=== PATIENT | female | born 1960 | race Caucasian/White ===

== ENCOUNTER 2017-04-25 04:33 | Emergency (ER) | payer MEDICARE, SELFPAY ==
[2017-04-25 04:37] VITALS: BP 160/97; PULSE 74; RESP 14; TEMP 36.6; O2SAT 99; BMI 35.4
--- NOTE | 2017-04-25 04:47 | EKG12_ITS ---
Test Reason : GEN ILL Blood Pressure : / mmHG Vent. Rate : 066 BPM Atrial Rate : 066 BPM P-R Int : 110 ms QRS Dur : 068 ms QT Int : 412 ms P-R-T Axes : 035 054 068 degrees QTc Int : 431 ms Sinus rhythm with short [place] Otherwise normal ECG Confirmed by EVI COOK, BRIONNA ([id number]), development editor BUSTER CASEY ([id number]) on 04/26/2017 1:28:59 PM Referred By: JENNIFER Confirmed By:BRIONNA STEVE MD
--- NOTE | 2017-04-25 04:50 | ED.DCSUM_ITS ---
- ER Visit Summary Date of Service: 04/25/17 Chief Complaint: [] Bilateral feet tingling History of Present Illness: The patient is a 56 F over the last 3 days she has had bilateral feet tingling intermittent in her toes. Comes and goes. Gradual onset. Worsened by nothing. She had a rotator cuff replaced 2 weeks ago and is on Percocet. She has had intermittent ringing in her bilateral ears. She has some nausea earlier today. Came in for all the above symptoms. Denies any chest pain shortness of breath or other symptoms. Physical Examination: Vital signs reviewed General: Well-nourished well-developed Head: Normocephalic atraumatic Eyes: Pupils equal round and reactive to light extraocular movements intact ENT: TMs clear no hemotympanum no trauma Neck: Nontender full range of motion Cardiovascular: Regular rate rhythm no murmurs normal S1-S2 Respiratory: No distress clear to auscultation bilaterally chest nontender Abdomen: Soft nontender nondistended normal bowel sounds no masses Back: Nontender no CVA tenderness Extremities: Upper extremity in a rotator cuff sling. The rest of her extremities are normal including lower extremities. Normal strength sensation and pulses. Skin: Normal color no trauma Neuro alert oriented cranial nerves II through XII intact normal strength sensation reflexes Test Results: [] Emergency Department Course and Treatment: [] Patient's lab work shows a CBC is normal except a hematocrit 36.0. Chemistries normal except sodium 146 potassium 3.0. Patient has chronic low potassium takes this daily. EKG shows sinus at a rate of 66. Patient given his a dose of Zofran. Given oral potassium 20 mEq. Ambulated without problems. At this time I feel the patient can follow-up as an outpatient. Given Zofran for home. Requesting a nerve pill and I stated she will have follow-up with her doctor for this Treatment Plan: [] Disposition: [] Impression: [] Bilateral feet paresthesia Ear ringing tinnitus bilateral Hypokalemia This note was generated with [employer] dictation software. It may contain incorrect words, spelling, and punctuation that were not noted in review of the chart prior to signing ED Disposition - Plan for ED Patient: Chief Complaint: General Illness Referrals: Velvet Pepe MD [Primary Care Provider] -
[2017-04-25] MEDS: Ondansetron ODT 4 MG Tablet PO (04:52)
[2017-04-25 05:05] VITALS: BP 134/84; PULSE 66; RESP 11; O2SAT 97
[2017-04-25 05:10] LABS: Absolute Lymphocyte Count 2.21 X10^3/ul (0.83-4.51); Absolute Neutrophil Count 5.9 X10^3/uL (2.0-7.7); Basophil# 0.03 X10^3/uL; Basophil% 0.3 % (0-1); Eosinophil# 0.15 X10^3/uL; Eosinophils% 1.7 % (0-5); Hemoglobin 12.3 g/dl (12.0-15.0); Lymphocyte # 2.21 X10^3/ul (4.0); Lymphocyte % 24.3 % (19-41); Mean Corp Hgb Conc 34.2 g/gl (32-36); Mean Corpuscular Hgb 31.6 pg (27.0-32.0); Mean Corpuscular Volume 92.5 fL (81-99); Mean Platelet Vol. 10.8 fl (6.2-12.0); Monocyte# 0.84 X10^3/uL; Monocyte% 9.2 % (0-10); Neutrophil # 5.85 X10^3/uL (2.7-7.7); Neutrophil % 64.4 % (47-70); Platelet Count 234 K/mm3 (150-450); Red Blood Count 3.89 M/mm3 (4.2-5.4); White Blood Count 9.1 K/mm3 (4.4-11.0)
[2017-04-25 05:11] LABS: POSITIVE COUNT NO; POSITIVE DIFFERENTIAL NO; POSITIVE MORPHOLOGY NO
[2017-04-25 05:34] LABS: Anion Gap 10 (5-15); BUN 16 mg/dL (7-18); BUN/Creat Ratio 17.2 RATIO (10-20); Calcium,Total 8.4 mg/dL (8.5-10.1); Chloride 110 mmol/L (98-107); Creatinine, Serum 0.93 mg/dL (0.55-1.02); EST Glomerular Filtration Rate 66 mL/min (>60); Est Glom Filt Rate - Afr Amer 80 mL/min (>60); Estimated Creatinine Clearance 50.97 ml/min; Glucose 120 mg/dL (74-106); Sodium Level 146 mmol/L (136-145)
--- NOTE | 2017-04-25 05:41 | ED.DEP ---
ED Disposition - Plan for ED Patient: Disposition: Home or Assisted Living Chief Complaint: General Illness Instructions: Discharge Instructions for Hypokalemia, ED Paraesthesias Prescriptions: Ondansetron [Zofran Odt] 4 mg PO Q8H PRN PRN #10 tab PRN Reason: Nausea Referrals: Velvet Pepe MD [Primary Care Provider] -
[2017-04-25 06:08] VITALS: BP 134/85; PULSE 78; RESP 16; O2SAT 97
== END 2017-04-25 06:13 | disposition home or self-care (01) ==
PROVIDERS: Emergency Provider Emergency Medicine; Family Provider Internal Medicine; PCP Internal Medicine
DX: R20.2 Paresthesia of skin (principal); H93.13 Tinnitus, bilateral; E87.6 Hypokalemia; I25.10 Atherosclerotic heart disease of native coronary artery without angina pectoris; J44.9 Chronic obstructive pulmonary disease, unspecified; I10 Essential (primary) hypertension; M79.7 Fibromyalgia; F31.9 Bipolar disorder, unspecified; E66.9 Obesity, unspecified; Z79.899 Other long term (current) drug therapy
CPT/HCPCS: 80048; 85025; 93005; 99283; A4216

== ENCOUNTER 2017-05-30 08:39 | Emergency (ER) | payer MEDICARE, SELFPAY ==
[2017-05-30 08:40] VITALS: BP 190/108; PULSE 61; RESP 28; TEMP 36.6; O2SAT 97; BMI 34.8
--- NOTE | 2017-05-30 08:45 | EKG12_ITS ---
Test Reason : CP Blood Pressure : / mmHG Vent. Rate : 057 BPM Atrial Rate : 057 BPM P-R Int : 114 ms QRS Dur : 066 ms QT Int : 452 ms P-R-T Axes : 025 038 044 degrees QTc Int : 439 ms Sinus bradycardia Otherwise normal ECG Confirmed by JOSESITO COOK, ISABELLE ([id number]), associate editor BUSTER CASEY ([id number]) on 06/03/2017 1:13:20 PM Referred By: RAFAEL Confirmed By:ISABELLE BELLAMY MD
--- NOTE | 2017-05-30 08:57 | ED.DCSUM_ITS ---
- ER Visit Summary Date of Service: 05/30/17 Chief Complaint: [] Hot flashes after taking estrogen supplementation tablet this morning History of Present Illness: The patient is a 56 F [] has history of menopause she has been having hot flashes that are quite debilitating, history of hypertension and anxiety, she indicates she was seen by her physicians put on an estrogen tablet to help with all the above, she took that tablet first time today and immediately afterward she felt as if the hot flashes were worse she feels if she is on fire her entire body she feels is suffering from hot flash. She spoke with someone at the [facility] hotline nurse and she was told to come to the emergency department She has no history of CA PE DVT hypertension is generally well-controlled her anxiety medications 3 months ago were stopped and included Valium and tramadol currently has nothing for anxiety she denies chest pain abdominal pain vaginal bleeding #6 paresthesias Physical Examination: [] Pressure is elevated to 190/100 she is awake and alert she is rubbing her skin because of the symptoms, her HEENT exam is unremarkable her speech is normal and easy to understand her oral cavity is unremarkable the neck is supple the lungs are clear heart tones are normal abdomen soft nontender upper lower extremities unremarkable the skin is normal neurologically her NIH is 0 she is awake and alert Test Results: [] Emergency Department Course and Treatment: [] Concern as to why this new estrogen tablet caused her to have worsening hot flashes of explained her that given all the above we will obtain screening labs try to provide her systematic relief if these tests are unremarkable I explained that she will need to continue to follow with her gynecology team for further management of all the above Feeling better no longer having these hot flash sensations vital signs are better 140/70 she wants to go home she will continue her chronic medications consider stopping the new estrogen tablet discussing that therapy with her physicians return for change in symptoms Treatment Plan: [] Disposition: [] Home stable Impression: [] Hot flash sensation after taking estrogen tablet resolved history of hypertension and anxiety This note was generated with [employer] dictation software. It may contain incorrect words, spelling, and punctuation that were not noted in review of the chart prior to signing ED Disposition - Plan for ED Patient: Chief Complaint: General Illness Instructions: ED HTN Established Referrals: Velvet Pepe MD [Primary Care Provider] -
[2017-05-30] MEDS: cloNIDine HCl 0.1 MG Tablet 0.2 MG PO (09:25)
[2017-05-30] MEDS: diazePAM 5 MG Tablet PO (09:26)
[2017-05-30 09:43] LABS: Absolute Lymphocyte Count 1.83 X10^3/ul (0.83-4.51); Absolute Neutrophil Count 5.8 X10^3/uL (2.0-7.7); Basophil# 0.03 X10^3/uL; Basophil% 0.3 % (0-1); Eosinophil# 0.18 X10^3/uL; Eosinophils% 2.1 % (0-5); Hematocrit 37.5 % (37-47); Hemoglobin 12.5 g/dl (12.0-15.0); Lymphocyte # 1.83 X10^3/ul (4.0); Lymphocyte % 21.2 % (19-41); Mean Corp Hgb Conc 33.3 g/gl (32-36); Mean Corpuscular Hgb 30.6 pg (27.0-32.0); Mean Corpuscular Volume 91.9 fL (81-99); Mean Platelet Vol. 10.6 fl (6.2-12.0); Monocyte# 0.78 X10^3/uL; Neutrophil # 5.81 X10^3/uL (2.7-7.7); Neutrophil % 67.2 % (47-70); POSITIVE COUNT NO; POSITIVE DIFFERENTIAL NO; POSITIVE MORPHOLOGY NO; Platelet Count 243 K/mm3 (150-450); RBC Distribution Width CV 13.2 % (11.6-14.6); RBC Distribution Width SD 43.9 fl (35.1-43.9); Red Blood Count 4.08 M/mm3 (4.2-5.4); White Blood Count 8.7 K/mm3 (4.4-11.0)
[2017-05-30 09:59] LABS: AST(SGOT) 16 U/L (15-37); Alanine Aminotransfer ALT/SGPT 17 U/L (13-56); Albumin, Serum 3.4 g/dL (3.2-5.0); Alkaline Phosphatase 78 U/L (45-117); Anion Gap 10 (5-15); BUN 14 mg/dL (7-18); Bilirubin, Direct 0.11 mg/dL (0.00-0.30); Calcium,Total 8.1 mg/dL (8.5-10.1); Chloride 114 mmol/L (98-107); Creatinine, Serum 0.82 mg/dL (0.55-1.02); EST Glomerular Filtration Rate 76 mL/min (>60); Est Glom Filt Rate - Afr Amer 92 mL/min (>60); Estimated Creatinine Clearance 57.81 ml/min; Globulin 3.3 g/dL (2.2-4.2); Glucose 109 mg/dL (74-106); Lipase 179 U/L (73-393); Potassium 3.3 mmol/L (3.5-5.1); Protein, Total 6.7 g/dL (6.4-8.2); Sodium Level 148 mmol/L (136-145)
[2017-05-30 10:09] LABS: Mucous, Urine 0 SEEN /hpf (<or=2+); Red Blood Cells-Urine 0 SEEN /hpf (0-5)
[2017-05-30 10:11] LABS: Color, Urine Yellow (Yellow); Glucose, Dipstick Normal (Normal); Ketone-Dipstick Negative (Negative); Leukocyte Esterase-Dipstick 25 /ul (Negative); Nitrite-Dipstick Negative (Negative); Occult Blood-Urine Negative /ul (Negative); Protein-Dipstick 15 mg/dl (Negative); Specific Gravity, Urine 1.025 (1.002-1.030); Urine Bilirubin Dipstick 3 mg/dL (Negative); Urine Clarity Clear (Clear); Urine Urobilinogen Normal (Normal)
[2017-05-30 10:25] LABS: Bacteria 2+ /hpf (None Seen); Squamous Epithelial Cells - UA 0-5 SEEN /hpf (5-10); White Blood Cells 0-5 SEEN /hpf (0-5)
--- NOTE | 2017-05-30 11:17 | ED.DEP ---
ED Disposition - Plan for ED Patient: Chief Complaint: General Illness Instructions: ED HTN Established Referrals: Velvet Pepe MD [Primary Care Provider] -
[2017-05-30 12:01] VITALS: BP 145/88; PULSE 57; RESP 17
[2017-05-30 12:02] VITALS: BP 145/88; PULSE 57; RESP 18
--- NOTE | 2017-05-30 19:25 | ED.RN ---
Patient called back in to ask what medications she was given while in the ER. Patient given medications and spelling at this time. Patient is attempting to get medication from primary doctor.
== END 2017-05-30 12:11 | disposition home or self-care (01) ==
PROVIDERS: Emergency Provider Emergency Medicine; Family Provider Internal Medicine; PCP Internal Medicine
DX: N95.1 Menopausal and female climacteric states (principal); I10 Essential (primary) hypertension; F41.9 Anxiety disorder, unspecified; Z79.3 Long term (current) use of hormonal contraceptives; Z79.899 Other long term (current) drug therapy
CPT/HCPCS: 80048; 80076; 81001; 83690; 84484; 85025; 93005; 96360; 96361; 99284; J7040; A4216

== ENCOUNTER 2017-06-04 00:54 | Emergency (ER) | payer MEDICARE, SELFPAY ==
[2017-06-04 00:55] VITALS: PULSE 117; RESP 28; TEMP 37.1; BMI 37.0
--- NOTE | 2017-06-04 01:00 | NURSING ---
CALLED FOR EKG, BIPAP, AND BREATHING TREATMENTS, PER RN REQUEST. PULLED OLD EKG'S FOR
--- NOTE | 2017-06-04 01:13 | EKG12_ITS ---
Test Reason : Blood Pressure : / mmHG Vent. Rate : 092 BPM Atrial Rate : 092 BPM P-R Int : 126 ms QRS Dur : 068 ms QT Int : 356 ms P-R-T Axes : 064 063 015 degrees QTc Int : 440 ms Normal sinus rhythm Nonspecific ST and T wave abnormality Abnormal ECG Confirmed by JOSESITO COOK, ISABELLE ([id number]), map editor BUSTER CASEY ([id number]) on 06/07/2017 1:05:14 PM Referred By: Confirmed By:ISABELLE BELLAMY MD
--- NOTE | 2017-06-04 01:13 | RAD_ITS ---
STUDY: X-RAY CHEST REASON FOR EXAM: Female, 56 years old. Shortness of breath and cough. TECHNIQUE: Single AP portable view of the chest. COMPARISON: 03/22/2015. FINDINGS: There is mild patchy infiltrate in the right perihilar and left lower lung zones. There prominent markings in the left perihilar region. There is no demonstrated pleural abnormality. The heart is within normal limits in size. Normal mediastinum and madelyn. Normal visualized pulmonary arteries. There is atherosclerotic tortuosity of the aortic arch and descending thoracic aorta. The thoracic spine is not well-seen. There is a surgical pin overlying the right humeral head. There is no demonstrated abnormality of the visualized soft tissue structures of the upper abdomen. RAD/Chest 1 View (Portable) IMPRESSION: Mild patchy infiltrate in right perihilar and right lower lung zones and possibly in the left perihilar region. Electronically Signed: Ryland Ruelas MD at 2:20 EDT Tel , Service support ,
[2017-06-04] MEDS: Ipratropium/Albuterol Sulfate 3 ML AMPUL.NEB INHALATION (01:26)
[2017-06-04 01:27] VITALS: PULSE 95; RESP 20
[2017-06-04] MEDS: Ondansetron 4 MG/2 ML Vial IV (01:32)
[2017-06-04 01:33] VITALS: O2SAT 93
[2017-06-04] MEDS: Ketorolac 30 MG/ML Syringe IV (01:42)
[2017-06-04] MEDS: Midazolam 2 MG/2 ML Syringe 1 MG IV (01:47)
[2017-06-04 01:57] LABS: Absolute Lymphocyte Count 2.67 X10^3/ul (0.83-4.51); Absolute Neutrophil Count 11.3 X10^3/uL (2.0-7.7); Basophil# 0.03 X10^3/uL; Basophil% 0.2 % (0-1); Eosinophil# 0.24 X10^3/uL; Eosinophils% 1.6 % (0-5); Hematocrit 42.3 % (37-47); Hemoglobin 14.2 g/dl (12.0-15.0); Lymphocyte # 2.67 X10^3/ul (4.0); Lymphocyte % 17.8 % (19-41); Mean Corp Hgb Conc 33.6 g/gl (32-36); Mean Corpuscular Hgb 30.7 pg (27.0-32.0); Mean Corpuscular Volume 91.6 fL (81-99); Monocyte# 0.77 X10^3/uL; Monocyte% 5.1 % (0-10); Neutrophil # 11.25 X10^3/uL (2.7-7.7); Neutrophil % 75.1 % (47-70); Platelet Count 253 K/mm3 (150-450); RBC Distribution Width CV 13.7 % (11.6-14.6); RBC Distribution Width SD 44.9 fl (35.1-43.9); Red Blood Count 4.62 M/mm3 (4.2-5.4)
[2017-06-04 02:01] LABS: POSITIVE COUNT NO; POSITIVE DIFFERENTIAL NO; POSITIVE MORPHOLOGY NO
[2017-06-04 02:17] LABS: BUN 10 mg/dL (7-18); Creatinine, Serum 0.82 mg/dL (0.55-1.02); Glucose 186 mg/dL (74-106)
[2017-06-04 02:18] LABS: Anion Gap 9 (5-15); BUN/Creat Ratio 12.2 RATIO (10-20); Chloride 112 mmol/L (98-107); EST Glomerular Filtration Rate 76 mL/min (>60); Est Glom Filt Rate - Afr Amer 92 mL/min (>60); Estimated Creatinine Clearance 57.81 ml/min; Potassium 3.2 mmol/L (3.5-5.1); Sodium Level 146 mmol/L (136-145)
--- NOTE | 2017-06-04 02:38 | ED.DCSUM_ITS ---
- ER Visit Summary Date of Service: 06/04/17 Chief Complaint: [] Cough and shortness of breath and anxiety History of Present Illness: The patient is a 56 F patient states she has been under a lot of stress and having anxiety. She has also been having a cough today with clear sputum production and shortness of breath. She is a history of COPD coronary artery disease. She has severe mitral regurgitation. She has had pneumonia with sepsis in the past. She has been out of her anxiety medications. She came in the emergency department because of hot flashes recently. Physical Examination: Vital signs reviewed General: Well-nourished well-developed. Patient with reported anxiety uncomfortable. Head: Normocephalic atraumatic Eyes: Pupils equal round and reactive to light extraocular movements intact ENT: TMs clear no hemotympanum no trauma Neck: Nontender full range of motion Cardiovascular: Regular tachycardia with normal rhythm no murmurs normal S1-S2 Respiratory: Mild rales in the bases of the right lower lung. No wheezes. Abdomen: Soft nontender nondistended normal bowel sounds no masses Back: Nontender no CVA tenderness Extremities: Nontender active range of motion ?4 extremities no trauma Skin: Normal color no trauma Neuro alert oriented cranial nerves II through XII intact normal strength Test Results: [] Emergency Department Course and Treatment: [] Patient was given a dose of alprazolam for anxiety which helped significantly. She calm down. Heart rate come down to the 80s. Chest x-ray shows a right lower lobe pneumonia. Chest x- ray shows a white count of 15,000. Chemistries normal except sodium 146. EKG shows sinus at 92. Troponin 0 0.05. The patient is on home oxygen. Pulse ox 93% on nasal cannula. Patient does not feel she is well enough to go home and is requesting admission. This will be discussed with the hospitalist. The patient does not really meet any admission criteria. She is not hypoxic on nasal cannula and will be discharged. She will be given a short course of Xanax and levofloxacin with her first dose here. Her anxiety attack is resolved. Treatment Plan: [] Disposition: [] Impression: [] Right lower lobe community acquired pneumonia Anxiety attack This note was generated with [employer] software. It may contain incorrect words, spelling, and punctuation that were not noted in review of the chart prior to signing ED Disposition - Plan for ED Patient: Disposition: Home or Assisted Living Chief Complaint: Shortness of Breath Instructions: Understanding Anxiety Disorders, ED Pneumonia Adult Prescriptions: Ondansetron [Zofran Odt] 4 mg PO Q8H PRN PRN #10 tab PRN Reason: Nausea Levofloxacin [Levaquin] 750 mg PO DAILY #7 tab Alprazolam [Xanax] 1 mg PO TID PRN 3 Days #8 tab PRN Reason: Anxiety Referrals: Velvet Pepe MD [Primary Care Provider] -
--- NOTE | 2017-06-04 02:48 | ED.DEP ---
ED Disposition - Plan for ED Patient: Disposition: Home or Assisted Living Chief Complaint: Shortness of Breath Instructions: ED Pneumonia Adult, Understanding Anxiety Disorders Prescriptions: Ondansetron [Zofran Odt] 4 mg PO Q8H PRN PRN #10 tab PRN Reason: Nausea Levofloxacin [Levaquin] 750 mg PO DAILY #7 tab Alprazolam [Xanax] 1 mg PO TID PRN 3 Days #8 tab PRN Reason: Anxiety Referrals: Velvet Pepe MD [Primary Care Provider] -
[2017-06-04] MEDS: levoFLOXacin 750 MG Tablet PO (03:01)
[2017-06-04 03:09] VITALS: BP 146/113; PULSE 92; RESP 18; O2SAT 93
== END 2017-06-04 03:18 | disposition home or self-care (01) ==
PROVIDERS: Emergency Provider Emergency Medicine; Family Provider Internal Medicine; PCP Internal Medicine
DX: J18.9 Pneumonia, unspecified organism (principal); F41.1 Generalized anxiety disorder; I25.10 Atherosclerotic heart disease of native coronary artery without angina pectoris; J44.9 Chronic obstructive pulmonary disease, unspecified; I10 Essential (primary) hypertension; I34.0 Nonrheumatic mitral (valve) insufficiency; M06.9 Rheumatoid arthritis, unspecified; M79.7 Fibromyalgia; K21.9 Gastro-esophageal reflux disease without esophagitis; F31.9 Bipolar disorder, unspecified; E66.9 Obesity, unspecified; Z99.81 Dependence on supplemental oxygen; Z79.82 Long term (current) use of aspirin; Z79.891 Long term (current) use of opiate analgesic; Z79.52 Long term (current) use of systemic steroids; Z79.899 Other long term (current) drug therapy; I25.2 Old myocardial infarction
CPT/HCPCS: 71045; 80048; 84484; 85025; 93005; 94640; 96374; 96375; 99285; A4216; J2405

== ENCOUNTER 2017-06-08 01:49 | Inpatient (IN) | payer MEDICARE, SELFPAY ==
[2017-06-08] VITALS (20 sets, daily range): BP systolic 103–191; BP diastolic 59–156; PULSE 80–122; RESP 12–36; TEMP 36.3–36.9; O2SAT 92–98; BMI 35.6; BMI 36.5
--- NOTE | 2017-06-08 01:53 | EKG12_ITS ---
Test Reason : SOB Blood Pressure : / mmHG Vent. Rate : 102 BPM Atrial Rate : 102 BPM P-R Int : 130 ms QRS Dur : 070 ms QT Int : 340 ms P-R-T Axes : 061 064 071 degrees QTc Int : 443 ms Sinus tachycardia Otherwise normal ECG Confirmed by JOSESITO COOK, ISABELLE ([id number]), magazine editor BUSTER CASEY ([id number]) on 06/11/2017 8:37:58 AM Referred By: DR ALVAREZ Confirmed By:ISABELLE BELLAMY MD
--- NOTE | 2017-06-08 01:56 | ED.DCSUM_ITS ---
- ER Visit Summary Date of Service: 06/08/17 Chief Complaint: Cough, shortness of breath History of Present Illness: The patient is a 56 F who presents with a cough as well as shortness of breath. It started today and got worse. She was seen here 4 days ago and diagnosed with pneumonia. She is currently on Levaquin. Today she states her symptoms did get worse. Her cough is been productive of sputum. Her shortness of breath gets worse with exertion and better with rest. She has a history of COPD and wears 2 L of home oxygen. Upon EMS arrival tonight her pulse ox was 70%. They put her on high flow nonrebreather and it went up to 100%. Patient denies any fevers. Physical Examination: Vital signs are reviewed. HEENT exam unremarkable. Heart is tachycardic and regular rhythm without murmurs. Lungs have diffuse into tourniquet Tory wheezing. Patient is using accessory muscles. Abdomen is soft nontender. Extremities reveal no edema. Her neurologic exam is at baseline. Test Results: EKG was sinus tachycardia with a rate of 102. Nonspecific ST T- wave changes noted. Chest x-ray does redemonstrate the bilateral lower lobe infiltrate. White blood cell count is 17. Creatinine 1.27, glucose 215. Troponin is indeterminate 0.10. Lactate normal. ABG shows a pH of 7.36, CO2 of 43, oxygen of 84, bicarb 24 Emergency Department Course and Treatment: Due to the patient's work of breathing, she was given aerosol treatments. She was then placed on BiPAP at 60 % FiO2. She is more comfortable with this. The patient was then started on Rocephin and azithromycin. I feel that her pneumonia is likely contributing to an exacerbation of her COPD. Patient will be admitted to the hospital on BiPAP to the PCU stepdown Treatment Plan: [] Disposition: Admit Impression: Acute on chronic respiratory failure, community-acquired pneumonia, COPD exacerbation, sepsis This note was generated with [employer] dictation software. It may contain incorrect words, spelling, and punctuation that were not noted in review of the chart prior to signing ED Disposition - Plan for ED Patient: Chief Complaint: Shortness of Breath Referrals: Velvet Pepe MD [Primary Care Provider] -
[2017-06-08] MEDS: Ipratropium/Albuterol Sulfate 3 ML AMPUL.NEB INHALATION ×5 (02:00→20:07)
[2017-06-08] MEDS: Albuterol 2.5 MG/3 ML VIAL.NEB. INHALATION ×3 (02:00→02:20)
--- NOTE | 2017-06-08 02:05 | RAD_ITS ---
STUDY: X-RAY CHEST REASON FOR EXAM: Female, 56 years old. Cough, shortness of breath TECHNIQUE: Single AP portable view of the chest. COMPARISON: Jun 04 2017 3:04am FINDINGS: Ill-defined airspace opacities are seen right and left lung lower lobes consistent with bilateral pneumonia has been no significant changes since the previous study. There is small right pleural effusion. Normal size heart. Normal mediastinum and madelyn. Normal visualized pulmonary arteries. Normal visualized aortic arch and descending thoracic aorta. Normal visualized thoracic spine. Normal visualized ribs, clavicles, and shoulders. There is no demonstrated abnormality of the visualized soft tissue structures of the upper abdomen. RAD/Chest 1 View (Portable) IMPRESSION: Bilateral pneumonia. Small right pleural effusion. Electronically Signed: Viviana Le MD at 3:11 EDT Tel , Service support ,
[2017-06-08] MEDS: MethylPREDNISolone 125 MG/2 ML Vial IV (02:06)
[2017-06-08] MEDS: Ondansetron 4 MG/2 ML Vial IV (02:07)
[2017-06-08] MEDS: Acetaminophen 500 MG Tablet 1000 MG PO (02:07)
[2017-06-08 02:09] LABS: Absolute Neutrophil Count 7.1 X10^3/uL (2.0-7.7); Basophil# 0.04 X10^3/uL; Basophil% 0.2 % (0-1); Eosinophils% 2.4 % (0-5); Hematocrit 41.3 % (37-47); Hemoglobin 13.3 g/dl (12.0-15.0); Lymphocyte % 45.9 % (19-41); Mean Corp Hgb Conc 32.2 g/gl (32-36); Mean Corpuscular Hgb 30.4 pg (27.0-32.0); Mean Corpuscular Volume 94.3 fL (81-99); Mean Platelet Vol. 11.3 fl (6.2-12.0); Monocyte# 1.58 X10^3/uL; Monocyte% 9.3 % (0-10); Neutrophil # 7.12 X10^3/uL (2.7-7.7); Neutrophil % 41.9 % (47-70); Platelet Count 347 K/mm3 (150-450); RBC Distribution Width CV 13.7 % (11.6-14.6); RBC Distribution Width SD 46.9 fl (35.1-43.9); Red Blood Count 4.38 M/mm3 (4.2-5.4)
[2017-06-08 02:11] LABS: Differential Indicated SCAN CRITERIA MET; POSITIVE COUNT NO; POSITIVE DIFFERENTIAL YES; POSITIVE MORPHOLOGY NO
[2017-06-08 02:22] LABS: Anion Gap 8 (5-15); BUN 18 mg/dL (7-18); BUN/Creat Ratio 14.2 RATIO (10-20); Calcium,Total 8.2 mg/dL (8.5-10.1); Chloride 109 mmol/L (98-107); Creatinine, Serum 1.27 mg/dL (0.55-1.02); EST Glomerular Filtration Rate 46 mL/min (>60); Est Glom Filt Rate - Afr Amer 56 mL/min (>60); Estimated Creatinine Clearance 40.92 ml/min; Glucose 215 mg/dL (74-106); Potassium 4.5 mmol/L (3.5-5.1); Sodium Level 144 mmol/L (136-145)
[2017-06-08 02:24] LABS: Differential Comment SCANNED
[2017-06-08 02:41] LABS: Allen Test POS; Base Excess -1 mmol/L (-2 to +2); Bicarbonate 24.4 mmol/L (22-26); Blood Gas Specimen Type ART; EPAP 8; FI02 60; IPAP 12; PO2 84 mmHG (75-100); RR 14; SITE R Radial; SO2 96 % (95-99); Time Given 230; Total Carbon Dioxide 26 mmol/L; pCO2 43.3 mmHg (35-45); pH 7.36 (7.35-7.45)
--- NOTE | 2017-06-08 02:41 | ED.RN ---
PT'S SIGNIFICANT OTHER ELIAN CALLED TO CHECK IN ON PT. ELIAN GAVE CELL PHONE NUMBER [phone].
--- NOTE | 2017-06-08 02:56 | CPS ---
aerosol given with mask and run on 8 liters O2
[2017-06-08 03:16] LABS: Lactic Acid 1.7 mmol/L (0.4-2.0)
[2017-06-08] MEDS: Ceftriaxone 1 GM/50 ML BAG IV (03:28)
--- NOTE | 2017-06-08 03:36 | PCM.HP.STD ---
Problem List (1) NSTEMI (non-ST elevated myocardial infarction) Status: Chronic (2) Fibromyalgia Status: Chronic (3) Rheumatoid arthritis Status: Chronic (4) HTN (hypertension) Status: Chronic (5) COPD (chronic obstructive pulmonary disease) Status: Chronic (6) Bipolar disorder Status: Chronic History of Present Illness Date of Admission: 06/08/17 Chief Complaint: Cough and shortness of breath. The patient is a 56 year old F with past medical history as mentioned above presented to the emergency room because of cough and shortness of breath. Her illness started around 1 week and half ago with progressively increasing shortness of breath, initially was with exertion and progressed to become sometimes at rest, got more worse today, associated with dry cough without sputum production as well as subjective fever, aggravated by exertion and relieved by rest. She came to the emergency department 4 days ago and she was diagnosed with pneumonia and was discharged on Levaquin. She mentioned that her symptoms did not improve and just got worse. She does have a history of COPD and chronic respiratory failure and she has been on home oxygen. Upon arrival of the EMS to her house, her pulse oximeter was 70% on 2 L. In the emergency department, she was afebrile, tachycardic, blood pressure stable, dyspneic and tachypneic. She was started on BiPAP she feels a little bit better. His routine blood work was remarkable for leukocytosis and creatinine of 1.27. Her blood glucose was 215. Lactic acid was normal. Troponin was 0.10. EKG revealed sinus tachycardia without evidence of acute ischemic changes. Chest x-ray revealed bilateral basilar infiltrates, more on the right base which looks worse than the chest x-ray 4 days ago as well as small right pleural effusion. ABG revealed pH of 7.36, PCO2 of 43 and PO2 of 84. She is being admitted for pneumonia probably healthcare associated complicated by sepsis and acute on chronic hypoxic respiratory failure, also found to have acute kidney injury and borderline elevated troponin. Past Medical History Past Medical History (Chronic Problems): Chronic Problems NSTEMI (non-ST elevated myocardial infarction) (Chronic) Fibromyalgia (Chronic) Rheumatoid arthritis (Chronic) HTN (hypertension) (Chronic) COPD (chronic obstructive pulmonary disease) (Chronic) Bipolar disorder (Chronic) Allergies methotrexate Allergy (Verified 06/08/17 01:57) Other nadolol Allergy (Verified 06/08/17 01:57) Unknown baclofen Adverse Reaction (Verified 06/08/17 01:57) Other MOOD SWINGS lorazepam [From Ativan] Adverse Reaction (Verified 06/08/17 01:57) Nausea Penicillins Adverse Reaction (Verified 06/08/17 01:57) Nausea/Vom/Diarrhea propranolol Adverse Reaction (Verified 06/08/17 01:57) Other COMBID Allergy (Uncoded 06/08/17 01:57) Unknown Home Medications: Ambulatory Orders Medication Instructions Recorded Albuterol IH (ProAir) [Proair Hfa 2 puff INHALATION Q4H PRN PRN 07/26/14 (SP)Vent Pts] Lisinopril [Zestril] 40 mg PO DAILY 07/26/14 Pregabalin [Lyrica] 200 mg PO TID 07/26/14 Albuterol IH (ProAir) [Proair Hfa 1 puff INHALATION Q4H PRN PRN 03/21/15 (SP)Vent Pts] Fluticasone 0.05% [Flonase Nasal 1 spray NASAL BID 03/21/15 [place]] Alprazolam [Xanax] 1 mg PO TID PRN 3 Days #8 tab 06/04/17 Amlodipine [Norvasc] 10 mg PO BID 06/04/17 Aspirin [Aspirin, Baby] 81 mg PO DAILY@0800 06/04/17 Atenolol [Tenormin (beta castro)] 50 mg PO DAILY 06/04/17 Atorvastatin Calcium 40 mg PO DAILY 06/04/17 Cholecalciferol (Vitamin D3) 2,000 unit PO DAILY 06/04/17 [D3-2000] Citalopram [Celexa] 10 mg PO DAILY 06/04/17 Dexlansoprazole [Dexilant] 60 mg PO DAILY 06/04/17 Docusate Sodium [Colace] 100 mg PO BID PRN 06/04/17 Furosemide [Furosemide] 20 mg PO DAILY 06/04/17 Ipratropium/Albuterol Respimat 1 puff INHALATION 4X/DAY 06/04/17 [Combivent Respimat Inhal [place]] Lactulose [Lactulose] 30 ml PO QWEEK 06/04/17 Levofloxacin [Levaquin] 750 mg PO DAILY #7 tab 06/04/17 Nitroglycerin 0.4 mg SL PRN PRN 06/04/17 Ondansetron [Zofran Odt] 4 mg PO Q8H PRN PRN #10 tab 06/04/17 Potassium Chloride [Klor-Con M20] 20 meq PO DAILY 06/04/17 Prednisone [Prednisone] 10 mg PO DAILY 06/04/17 Zolpidem Tartrate [Zolpidem 5 mg PO QHS PRN 06/04/17 Tartrate] Surgical History: cataract, hysterectomy 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 Denies: Anorexia, Night Sweats Eyes: Denies: Blurred vision, Double vision, Drainage, Redness HEENT: Denies: Difficulty Hearing, Ear Pain, Eye Pain, Nasal Congestion, Sore Throat Cardiovascular: Denies: Chest Pain, Chest Pressure, Heaviness, Light Headedness, Palpitations, Paroxysmal Noc. Dyspnea, Syncope Respiratory: Reports: Cough, Shortness of Breath, Shortness of breath at rest, Shortness of breath upon exertion. Denies: Hemoptysis, Pleuritic Pain, Sputum production, Wheezing Gastrointestinal: Denies: Abdominal Pain, Constipation, Diarrhea, Nausea, Vomiting Genitourinary: Denies: Dysuria, Frequency, Hematuria Musculoskeletal: Reports: Shoulder Pain. Denies: Arm Pain, Back Pain, Foot Pain Skin: Denies: Dryness, Rash Neurological: Denies: Balance problems, Blurred vision, Change in Speech, Slurred speech, Confusion, Headaches, Incoordination, Numbness Psychiatric: Denies: Anxiety Endocrine: Denies: Change in Body Habitus, Polydipsia VTE Information - Inpt Only VTE Present on Admission: No VTE Mechan Device Prophylaxis: None VTE Pharm Prophylaxis ordered?: Yes - Physical Exam General: Alert, Oriented x3, Cooperative, - - Moderately short of breath, on BiPAP. HEENT: Atraumatic, PERRLA, EOMI Oral: Moist Mucosa, No Gingival or Mucosal Lesions/ Ulcerations Neck: Supple, No JVD, Negative Carotid Bruits, Trachea Midline, Thyroid Normal Size and Texture Lungs: No wheeze, Diminished, Rales, Rhonchi, Short of Breath, Tachypneic, - - Decreased breath sounds bilateral, bilateral basal crackles. Cardiovascular: Regular rate, Regular Rhythm, Normal S1, Normal S2, No murmurs, PMI Normal, Tachycardic Abdomen: Bowel Sounds Present, Soft, Non Tender, Non-Distended, No Hepato-splenomegaly, Obese Extremities: No clubbing, No cyanosis, No edema Skin: No rashes, No breakdown Lymphatic: No Cervical, Supraclavicular, or Inguinal Adenopathy Neurological: Cranial nerves II-XII grossly intact, Motor Exam 5/5 strength throughout Psych/Mental Status: Normal Affect, Appropriate, Alert and oriented to time, place, person, mood and affect Vital Signs Temp Pulse Resp BP Pulse Ox 97.3 F L 98 20 H 130/86 H 96 06/08/17 03:20 06/08/17 03:20 06/08/17 03:20 06/08/17 03:20 06/08/17 03:20 Oxygen Flow Rate (L/min) 8 Oxygen Delivery Method Bi-pap Weight: 201 lb 4.513 oz Body Mass Index (BMI) 35.6 Laboratory Tests Past 24 Hrs 06/08/17 06/08/17 06/08/17 02:00 02:00 02:27 WBC 17.0 H RBC 4.38 Hgb 13.3 Hct 41.3 MCV 94.3 MCH 30.4 MCHC 32.2 RDW 13.7 RDW Differential 46.9 H Plt Count 347 MPV 11.3 Immature Gran % (Auto) 0.300 Neut % (Auto) 41.9 L Lymph % (Auto) 45.9 H [place] % (Auto) 9.3 Eos % (Auto) 2.4 Baso % (Auto) 0.2 Absolute Neuts (auto) 7.1 Absolute Lymphs (auto) 7.80 H Total Counted Not Reportable Differential Comment SCANNED Specimen Type Sample Site pH Bicarbonate Actual POC Total CO2 Base Excess O2 Saturation O2 % ABG pCO2 ABG pO2 Kei Test Respiration Rate O2 Delivery Device EPAP IPAP Blood Gas Notified Whom Blood Gas Notified Time Sodium 144 Potassium 4.5 Chloride 109 H Carbon Dioxide 27.0 Anion Gap 8 BUN 18 Creatinine 1.27 H Estim Creat Clear Calc 40.92 Est GFR (MDRD) Af Amer 56 L Est GFR (MDRD) Non-Af 46 L BUN/Creatinine Ratio 14.2 Glucose 215 H Lactic Acid 1.7 Calcium 8.2 L Troponin I 0.10 H 06/08/17 02:35 WBC RBC Hgb Hct MCV MCH MCHC RDW RDW Differential Plt Count MPV Immature Gran % (Auto) Neut % (Auto) Lymph % (Auto) [place] % (Auto) Eos % (Auto) Baso % (Auto) Absolute Neuts (auto) Absolute Lymphs (auto) Total Counted Differential Comment Specimen Type ART Sample Site R Radial pH 7.36 Bicarbonate Actual 24.4 POC Total CO2 26 Base Excess -1 O2 Saturation 96 O2 % 60 ABG pCO2 43.3 ABG pO2 84 Kei Test POS Respiration Rate 14 O2 Delivery Device Bi / C PAP EPAP 8 IPAP 12 Blood Gas Notified Whom ED Blood Gas Notified Time 230 Sodium Potassium Chloride Carbon Dioxide Anion Gap BUN Creatinine Estim Creat Clear Calc Est GFR (MDRD) Af Amer Est GFR (MDRD) Non-Af BUN/Creatinine Ratio Glucose Lactic Acid Calcium Troponin I Clinical Impression(s) from Imaging Studies Chest X-Ray 06/08/17 02:05 IMPRESSION: Bilateral pneumonia. Small right pleural effusion. Electronically Signed: Viviana Le MD at 3:11 EDT Tel , Service support , Assessment/Plan This is a 56 years old female patient presented to the emergency room because of cough, shortness of breath and subjective fever she was found to have bilateral basilar infiltrate more on the right lung and she had a recent history of right shoulder repair surgery on April 10, 2017 she is being admitted for pneumonia probably healthcare associated pneumonia with sepsis and acute on chronic hypoxic respiratory failure as well as acute kidney injury and borderline elevated troponin. #1 Bilateral healthcare associated pneumonia/sepsis: She had right shoulder repair surgery on April 10, 2018 and I am not sure if she was admitted for that surgery or not and technically, she is having healthcare associated pneumonia. She was on Levaquin for a few days without improvement. She has leukocytosis, tachypneic and dyspneic as well as tachycardic. Lactic acid is normal. Chest x-ray reviewed. Blood cultures done, received 1 dose of IV Rocephin and Zithromax. Plan: Admit to PCU, cardiac monitoring, follow blood culture, urinalysis, urine culture, sputum culture, pneumococcal and Legionella antigen, bronchodilators, incentive spirometer, IV vancomycin and aztreonam because she is allergic to penicillin, PT OT evaluation and treatment. #2 acute on chronic hypoxic respiratory failure: She is on oxygen at home at 2 L. At this time, she is on BiPAP. ABG reviewed. It is secondary to above. Plan to keep her on BiPAP for now, treat underlying pneumonia, incentive spirometer, chest physiotherapy. #3 acute kidney injury: Secondary to pneumonia infection. Baseline creatinine has been normal, most recently 4 days ago was 0.82. Admission creatinine is 1 2.7. Plan: IV fluids, input output chart, repeat BMP tomorrow morning. #4 borderline elevated troponin: Likely demand ischemia due to pneumonia and sepsis. EKG without acute ischemic changes. She had a history of non-ST elevation MD in the past when she had pneumonia. She denies any history of cardiac interventions. Plan: Cardiac monitoring, serial cardiac enzymes, 2D echocardiogram, continue aspirin, Lipitor, atenolol and lisinopril. #5 COPD/chronic respiratory failure: On home oxygen at 2 L. Plan for DuoNeb every 6 hours, albuterol as needed, IV antibiotics as above. #6 hypertension: Blood pressure stable, continue Norvasc, atenolol and lisinopril. #7 rheumatoid arthritis fibromyalgia: Tylenol and IV morphine as needed, continue Lyrica. #8 history of non-ST elevation MD: Without history of interventions, plan as above. #9 DVT prophylaxis: Subcu heparin. This note was generated with [employer] dictation software. It may contain incorrect words, spelling, and punctuation that were not noted in checking the note before signing. Code Visit Inpatient E&M: 81682 Init Hosp L3
--- NOTE | 2017-06-08 03:51 | HP.PCM_ITS ---
Problem List (1) NSTEMI (non-ST elevated myocardial infarction) Status: Chronic (2) Fibromyalgia Status: Chronic (3) Rheumatoid arthritis Status: Chronic (4) HTN (hypertension) Status: Chronic (5) COPD (chronic obstructive pulmonary disease) Status: Chronic (6) Bipolar disorder Status: Chronic History of Present Illness Date of Admission: 06/08/17 Chief Complaint: Cough and shortness of breath. The patient is a 56 year old F with past medical history as mentioned above presented to the emergency room because of cough and shortness of breath. Her illness started around 1 week and half ago with progressively increasing shortness of breath, initially was with exertion and progressed to become sometimes at rest, got more worse today, associated with dry cough without sputum production as well as subjective fever, aggravated by exertion and relieved by rest. She came to the emergency department 4 days ago and she was diagnosed with pneumonia and was discharged on Levaquin. She mentioned that her symptoms did not improve and just got worse. She does have a history of COPD and chronic respiratory failure and she has been on home oxygen. Upon arrival of the EMS to her house, her pulse oximeter was 70% on 2 L. In the emergency department, she was afebrile, tachycardic, blood pressure stable, dyspneic and tachypneic. She was started on BiPAP she feels a little bit better. His routine blood work was remarkable for leukocytosis and creatinine of 1.27. Her blood glucose was 215. Lactic acid was normal. Troponin was 0.10. EKG revealed sinus tachycardia without evidence of acute ischemic changes. Chest x-ray revealed bilateral basilar infiltrates, more on the right base which looks worse than the chest x-ray 4 days ago as well as small right pleural effusion. ABG revealed pH of 7.36, PCO2 of 43 and PO2 of 84. She is being admitted for pneumonia probably healthcare associated complicated by sepsis and acute on chronic hypoxic respiratory failure, also found to have acute kidney injury and borderline elevated troponin. Past Medical History Past Medical History (Chronic Problems): Chronic Problems NSTEMI (non-ST elevated myocardial infarction) (Chronic) Fibromyalgia (Chronic) Rheumatoid arthritis (Chronic) HTN (hypertension) (Chronic) COPD (chronic obstructive pulmonary disease) (Chronic) Bipolar disorder (Chronic) Allergies methotrexate Allergy (Verified 06/08/17 01:57) Other nadolol Allergy (Verified 06/08/17 01:57) Unknown baclofen Adverse Reaction (Verified 06/08/17 01:57) Other MOOD SWINGS lorazepam [From Ativan] Adverse Reaction (Verified 06/08/17 01:57) Nausea Penicillins Adverse Reaction (Verified 06/08/17 01:57) Nausea/Vom/Diarrhea propranolol Adverse Reaction (Verified 06/08/17 01:57) Other COMBID Allergy (Uncoded 06/08/17 01:57) Unknown Home Medications: Ambulatory Orders Medication Instructions Recorded Albuterol IH (ProAir) [Proair Hfa 2 puff INHALATION Q4H PRN PRN 07/26/14 (SP)Vent Pts] Lisinopril [Zestril] 40 mg PO DAILY 07/26/14 Pregabalin [Lyrica] 200 mg PO TID 07/26/14 Albuterol IH (ProAir) [Proair Hfa 1 puff INHALATION Q4H PRN PRN 03/21/15 (SP)Vent Pts] Fluticasone 0.05% [Flonase Nasal 1 spray NASAL BID 03/21/15 [place]] Alprazolam [Xanax] 1 mg PO TID PRN 3 Days #8 tab 06/04/17 Amlodipine [Norvasc] 10 mg PO BID 06/04/17 Aspirin [Aspirin, Baby] 81 mg PO DAILY@0800 06/04/17 Atenolol [Tenormin (beta castro)] 50 mg PO DAILY 06/04/17 Atorvastatin Calcium 40 mg PO DAILY 06/04/17 Cholecalciferol (Vitamin D3) 2,000 unit PO DAILY 06/04/17 [D3-2000] Citalopram [Celexa] 10 mg PO DAILY 06/04/17 Dexlansoprazole [Dexilant] 60 mg PO DAILY 06/04/17 Docusate Sodium [Colace] 100 mg PO BID PRN 06/04/17 Furosemide [Furosemide] 20 mg PO DAILY 06/04/17 Ipratropium/Albuterol Respimat 1 puff INHALATION 4X/DAY 06/04/17 [Combivent Respimat Inhal [place]] Lactulose [Lactulose] 30 ml PO QWEEK 06/04/17 Levofloxacin [Levaquin] 750 mg PO DAILY #7 tab 06/04/17 Nitroglycerin 0.4 mg SL PRN PRN 06/04/17 Ondansetron [Zofran Odt] 4 mg PO Q8H PRN PRN #10 tab 06/04/17 Potassium Chloride [Klor-Con M20] 20 meq PO DAILY 06/04/17 Prednisone [Prednisone] 10 mg PO DAILY 06/04/17 Zolpidem Tartrate [Zolpidem 5 mg PO QHS PRN 06/04/17 Tartrate] Surgical History: cataract, hysterectomy 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 Denies: Anorexia, Night Sweats Eyes: Denies: Blurred vision, Double vision, Drainage, Redness HEENT: Denies: Difficulty Hearing, Ear Pain, Eye Pain, Nasal Congestion, Sore Throat Cardiovascular: Denies: Chest Pain, Chest Pressure, Heaviness, Light Headedness , Palpitations, Paroxysmal Noc. Dyspnea, Syncope Respiratory: Reports: Cough, Shortness of Breath, Shortness of breath at rest, Shortness of breath upon exertion. Denies: Hemoptysis, Pleuritic Pain, Sputum production, Wheezing Gastrointestinal: Denies: Abdominal Pain, Constipation, Diarrhea, Nausea, Vomiting Genitourinary: Denies: Dysuria, Frequency, Hematuria Musculoskeletal: Reports: Shoulder Pain. Denies: Arm Pain, Back Pain, Foot Pain Skin: Denies: Dryness, Rash Neurological: Denies: Balance problems, Blurred vision, Change in Speech, Slurred speech, Confusion, Headaches, Incoordination, Numbness Psychiatric: Denies: Anxiety Endocrine: Denies: Change in Body Habitus, Polydipsia VTE Information - Inpt Only VTE Present on Admission: No VTE Mechan Device Prophylaxis: None VTE Pharm Prophylaxis ordered?: Yes - Physical Exam General: Alert, Oriented x3, Cooperative, - - Moderately short of breath, on BiPAP. HEENT: Atraumatic, PERRLA, EOMI Oral: Moist Mucosa, No Gingival or Mucosal Lesions/ Ulcerations Neck: Supple, No JVD, Negative Carotid Bruits, Trachea Midline, Thyroid Normal Size and Texture Lungs: No wheeze, Diminished, Rales, Rhonchi, Short of Breath, Tachypneic, - - Decreased breath sounds bilateral, bilateral basal crackles. Cardiovascular: Regular rate, Regular Rhythm, Normal S1, Normal S2, No murmurs, PMI Normal, Tachycardic Abdomen: Bowel Sounds Present, Soft, Non Tender, Non-Distended, No Hepato- splenomegaly, Obese Extremities: No clubbing, No cyanosis, No edema Skin: No rashes, No breakdown Lymphatic: No Cervical, Supraclavicular, or Inguinal Adenopathy Neurological: Cranial nerves II-XII grossly intact, Motor Exam 5/5 strength throughout Psych/Mental Status: Normal Affect, Appropriate, Alert and oriented to time, place, person, mood and affect Vital Signs Temp Pulse Resp BP Pulse Ox 97.3 F L 98 20 H 130/86 H 96 06/08/17 03:20 06/08/17 03:20 06/08/17 03:20 06/08/17 03:20 06/08/17 03:20 Oxygen Flow Rate (L/min) 8 Oxygen Delivery Method Bi-pap Weight: 201 lb 4.513 oz Body Mass Index (BMI) 35.6 Laboratory Tests Past 24 Hrs 06/08/17 06/08/17 06/08/17 02:00 02:00 02:27 WBC 17.0 H RBC 4.38 Hgb 13.3 Hct 41.3 MCV 94.3 MCH 30.4 MCHC 32.2 RDW 13.7 RDW Differential 46.9 H Plt Count 347 MPV 11.3 Immature Gran % (Auto) 0.300 Neut % (Auto) 41.9 L Lymph % (Auto) 45.9 H [place] % (Auto) 9.3 Eos % (Auto) 2.4 Baso % (Auto) 0.2 Absolute Neuts (auto) 7.1 Absolute Lymphs (auto) 7.80 H Total Counted Not Reportable Differential Comment SCANNED Specimen Type Sample Site pH Bicarbonate Actual POC Total CO2 Base Excess O2 Saturation O2 % ABG pCO2 ABG pO2 Kei Test Respiration Rate O2 Delivery Device EPAP IPAP Blood Gas Notified Whom Blood Gas Notified Time Sodium 144 Potassium 4.5 Chloride 109 H Carbon Dioxide 27.0 Anion Gap 8 BUN 18 Creatinine 1.27 H Estim Creat Clear Calc 40.92 Est GFR (MDRD) Af Amer 56 L Est GFR (MDRD) Non-Af 46 L BUN/Creatinine Ratio 14.2 Glucose 215 H Lactic Acid 1.7 Calcium 8.2 L Troponin I 0.10 H 06/08/17 02:35 WBC RBC Hgb Hct MCV MCH MCHC RDW RDW Differential Plt Count MPV Immature Gran % (Auto) Neut % (Auto) Lymph % (Auto) [place] % (Auto) Eos % (Auto) Baso % (Auto) Absolute Neuts (auto) Absolute Lymphs (auto) Total Counted Differential Comment Specimen Type ART Sample Site R Radial pH 7.36 Bicarbonate Actual 24.4 POC Total CO2 26 Base Excess -1 O2 Saturation 96 O2 % 60 ABG pCO2 43.3 ABG pO2 84 Kei Test POS Respiration Rate 14 O2 Delivery Device Bi / C PAP EPAP 8 IPAP 12 Blood Gas Notified Whom ED Blood Gas Notified Time 230 Sodium Potassium Chloride Carbon Dioxide Anion Gap BUN Creatinine Estim Creat Clear Calc Est GFR (MDRD) Af Amer Est GFR (MDRD) Non-Af BUN/Creatinine Ratio Glucose Lactic Acid Calcium Troponin I Clinical Impression(s) from Imaging Studies Chest X-Ray 06/08/17 02:05 IMPRESSION: Bilateral pneumonia. Small right pleural effusion. Electronically Signed: Viviana Le MD at 3:11 EDT Tel , Service support , Assessment/Plan This is a 56 years old female patient presented to the emergency room because of cough, shortness of breath and subjective fever she was found to have bilateral basilar infiltrate more on the right lung and she had a recent history of right shoulder repair surgery on April 10, 2017 she is being admitted for pneumonia probably healthcare associated pneumonia with sepsis and acute on chronic hypoxic respiratory failure as well as acute kidney injury and borderline elevated troponin. #1 Bilateral healthcare associated pneumonia/sepsis: She had right shoulder repair surgery on April 10, 2018 and I am not sure if she was admitted for that surgery or not and technically, she is having healthcare associated pneumonia. She was on Levaquin for a few days without improvement. She has leukocytosis, tachypneic and dyspneic as well as tachycardic. Lactic acid is normal. Chest x-ray reviewed. Blood cultures done, received 1 dose of IV Rocephin and Zithromax. Plan: Admit to PCU, cardiac monitoring, follow blood culture, urinalysis, urine culture, sputum culture, pneumococcal and Legionella antigen, bronchodilators, incentive spirometer, IV vancomycin and aztreonam because she is allergic to penicillin, PT OT evaluation and treatment. #2 acute on chronic hypoxic respiratory failure: She is on oxygen at home at 2 L. At this time, she is on BiPAP. ABG reviewed. It is secondary to above. Plan to keep her on BiPAP for now, treat underlying pneumonia, incentive spirometer, chest physiotherapy. #3 acute kidney injury: Secondary to pneumonia infection. Baseline creatinine has been normal, most recently 4 days ago was 0.82. Admission creatinine is 1 2.7. Plan: IV fluids, input output chart, repeat BMP tomorrow morning. #4 borderline elevated troponin: Likely demand ischemia due to pneumonia and sepsis. EKG without acute ischemic changes. She had a history of non-ST elevation [place] in the past when she had pneumonia. She denies any history of cardiac interventions. Plan: Cardiac monitoring, serial cardiac enzymes, 2D echocardiogram, continue aspirin, Lipitor, atenolol and lisinopril. #5 COPD/chronic respiratory failure: On home oxygen at 2 L. Plan for DuoNeb every 6 hours, albuterol as needed, IV antibiotics as above. #6 hypertension: Blood pressure stable, continue Norvasc, atenolol and lisinopril. #7 rheumatoid arthritis fibromyalgia: Tylenol and IV morphine as needed, continue Lyrica. #8 history of non-ST elevation RI: Without history of interventions, plan as above. #9 DVT prophylaxis: Subcu heparin. This note was generated with [employer] dictation software. It may contain incorrect words, spelling, and punctuation that were not noted in checking the note before signing. Code Visit Inpatient E&M: 19911 Init Hosp L3
--- NOTE | 2017-06-08 04:23 | ECHOD_ITS ---
Reason For Study: Abn EKG, Borderline elevated troponin Procedure This was a 2D Doppler, Color Flow transthoracic echocardiogram. Exam performed portable in patient room. Left Ventricle Normal LV size. Left ventricular systolic function is normal. The estimated ejection fraction is 55 %. Transmitral diastolic flow velocities suggest moderate (stage 2) diastolic dysfunction (pseudonormal pattern). No regional wall motion abnormalities noted. Right Ventricle Normal RV size. Normal systolic function. Atria The left atrium is moderately enlarged. Normal right atrium. Mitral Valve Normal mitral valve. Moderate (2+) eccentric mitral valve insufficiency. Tricuspid Valve Normal tricuspid valve. Mild (1+) tricuspid valve insufficiency. Pulmonary artery systolic pressure is 39 mmHg. Great Vessels Normal aortic root. The pulmonary artery is normal size. Normal inferior vena cava. Pericardium/Pleural No pericardial effusion. MMode/2D Measurements & Calculations LVIDd: 4.9 cm IVSd: 1.2 cm Ao root diam: 2.6 cm LVIDs: 3.3 cm LVPWd: 1.1 cm LA dimension: 4.6 cm RVDd: 2.6 cm FS: 31.5 % LAV(MOD-bp): 64.7 ml LA A4 area: 25.0 cm2 RA A4 area: 11.5 cm2 LAV(MOD-bp) Indexed: 34.2 ml/m2 LAV(MOD-sp2): 48.3 ml LAV(MOD-sp4): 77.6 ml Doppler Measurements & Calculations MV E max jorge luis: 129.5 cm/sec Lat Peak E' Jorge Luis: 9.2 cm/sec Med Peak E' Jorge Luis: 6.5 cm/sec MV A max jorge luis: 78.3 cm/sec E/E' lat: 14.0 E/E' med: 20.1 MV E/A: 1.7 Ao V2 max: 172.0 cm/sec LV V1 max: 149.4 cm/sec PA V2 max: 89.7 cm/sec Ao max P.8 mmHg LV V1 max P.9 mmHg Ao V2 mean: 127.3 cm/sec Ao mean P.1 mmHg Ao V2 VTI: 31.3 cm TR max jorge luis: 291.6 cm/sec TR max P.1 mmHg Interpretation Summary Normal LV size. Left ventricular systolic function is normal. The estimated ejection fraction is 55 %. The left atrium is moderately enlarged. Moderate (2+) eccentric mitral valve insufficiency. Pulmonary artery systolic pressure is 39 mmHg. Compared to prior study, there is no significant change. Ordering Physician: Daksha Vides Referring Physician: Velvet Pepe Performed By: Shelby Christine, JAMESON, RVT
[2017-06-08] MEDS: 0.9% Normal Saline 1,000 ML 100 ML IV (04:42)
[2017-06-08] MEDS: Morphine 2 MG/ML Syringe IV (05:01)
[2017-06-08] MEDS: ALPRAZolam 0.5 MG Tablet 1 MG PO (05:15)
[2017-06-08] MEDS: Pregabalin 50 MG Capsule 200 MG PO ×3 (05:15→23:07)
[2017-06-08 05:58] LABS: Color, Urine Yellow (Yellow); Glucose, Dipstick Normal (Normal); Ketone-Dipstick Negative (Negative); Leukocyte Esterase-Dipstick Negative /ul (Negative); Nitrite-Dipstick Negative (Negative); Occult Blood-Urine Negative /ul (Negative); Protein-Dipstick 30 mg/dl (Negative); Urine Bilirubin Dipstick Negative (Negative); Urine Clarity Clear (Clear); Urine Urobilinogen Normal (Normal)
--- NOTE | 2017-06-08 06:51 | PHA.PHARE_ITS ---
Consult Pharmacy has been consulted to manage selected antiobiotic: Vancomycin Type of Consult: New start Suspected Infection: Pneumonia Prior Doses of Antibiotics Received/Current Regimen: Medications Discontinued Medications Vancomycin HCl 1,500 mg/ (Dextrose) 530 mls @ 250 mls/hr IV RX TO DOSE ONE Stop: 06/08/17 06:30 Last Admin: 06/08/17 06:39 Dose: 250 mls/hr Labs: Sodium 144 mmol/L (136-145) 06/08/17 02:00 Potassium 4.5 mmol/L (3.5-5.1) 06/08/17 02:00 Chloride 109 mmol/L (98-107) H 06/08/17 02:00 Carbon Dioxide 27.0 mmol/L (21.0-32.0) 06/08/17 02:00 Anion Gap 8 (5-15) 06/08/17 02:00 BUN 18 mg/dL (7-18) 06/08/17 02:00 Creatinine 1.27 mg/dL (0.55-1.02) H 06/08/17 02:00 Est GFR (MDRD) Af Amer 56 mL/min (>60) L 06/08/17 02:00 Est GFR (MDRD) Non-Af 46 mL/min (>60) L 06/08/17 02:00 BUN/Creatinine Ratio 14.2 RATIO (10-20) 06/08/17 02:00 Glucose 215 mg/dL (74-106) H 06/08/17 02:00 Microbiology: Microbiology 06/08/17 05:00 Urine Catheter - Catheter Legionella Antigen - Final 06/08/17 05:00 Urine Catheter - Catheter Streptococcus pneumoniae Antigen ( M - Final Weight used for dosin.6 kg Estimated Creatinine Clearance: 57 Goal Trough: 15-20 mcg/mL Pharmacy Plan for Drug Dosing: Pharmacy Service will continue to monitor and adjust dosing as required. Follow-Up Labs: Trough Vancomycin Labs to be done on [date and time ordered]: 06/09/17 @[id number]
[2017-06-08 07:01] LABS: Bedside Glucose 251 mg/dL (70-110)
[2017-06-08 08:16] LABS: Hemoglobin A1c 5.6 % (4.2-6.3)
[2017-06-08] MEDS: predniSONE 10 MG Tablet PO (08:34)
[2017-06-08] MEDS: Aspirin 81 MG TAB.CHEW PO (08:34)
[2017-06-08] MEDS: amLODIPine 10 MG Tablet PO ×2 (10:14→21:36)
[2017-06-08] MEDS: Atenolol 50 MG Tablet PO (10:15)
[2017-06-08] MEDS: Pantoprazole Sodium 40 MG Tablet PO (10:15)
[2017-06-08] MEDS: Lisinopril 40 MG Tablet PO (10:15)
[2017-06-08] MEDS: Citalopram 10 MG Tablet PO (10:15)
[2017-06-08] MEDS: guaiFENesin 1,200 MG Tablet 1200 MG PO ×2 (10:16→21:36)
--- NOTE | 2017-06-08 11:29 | CASEMGMT ---
RN YAHAIRA Face to Face with patient for initial transition planning/care coordination assessment. RN CM introduced self and role at [facility]. Patient lying in bed, alert and oriented. Patient willing to participate in assessment and is able to answer all questions appropriately. Care providers, pharmacy, and demographics verified. See link attached. Patient wishes to discharge home, denies need for home health at this time. Patient states he has no further needs or concerns at this time. CM to follow for discharge planning needs that may arise. Disposition Plan: Patient to discharge home with family support and follow-up plans in place.
[2017-06-08] MEDS: Acetaminophen 325 MG Tablet 650 MG PO (11:52)
[2017-06-08 12:16] LABS: Bedside Glucose 177 mg/dL (70-110)
--- NOTE | 2017-06-08 13:46 | PCM.PN.HOSP ---
Subjective: Patient was seen and examined. She is very lethargic, apparently received a dose of Xanax with morphine last night. Vitals have remained stable. Admitted with sepsis secondary to HCAP. Unable to get a good history from the patient because she was very sleepy. No acute events according to the nurses. Objective: Physical Exam General: Lethargic, on 4L oxygen, not pale, not jaundiced HEENT: Atraumatic, PERRLA, EOMI Oral: Moist Mucosa, No Gingival or Mucosal Lesions/ Ulcerations Neck: Supple, No JVD, Negative Carotid Bruits, Trachea Midline, Thyroid Normal Size and Texture Lungs: No wheeze, Diminished, Rales, Rhonchi, Short of Breath, Tachypneic, - - Decreased breath sounds bilateral, bilateral basal crackles. Cardiovascular: Regular rate, Regular Rhythm, Normal S1, Normal S2, No murmurs, PMI Normal, Tachycardic Abdomen: Bowel Sounds Present, Soft, Non Tender, Non-Distended, No Hepato-splenomegaly, Obese Extremities: No clubbing, No cyanosis, No edema Skin: No rashes, No breakdown Lymphatic: No Cervical, Supraclavicular, or Inguinal Adenopathy Neurological:Grossly intact, unable to complete exam. Psych/Mental Status: Lethargic Vitals/I&O's: Vital Signs Temp Pulse Resp BP Pulse Ox 97.7 F L 89 20 H 110/70 95 06/08/17 08:20 06/08/17 12:05 06/08/17 11:10 06/08/17 08:20 06/08/17 08:20 Oxygen Flow Rate (L/min) 4 Oxygen Delivery Method Nasal Cannula Weight: 87.6 kg Body Mass Index (BMI) 36.5 Intake and Output for Last 24 Hours 06/06/17 06/07/17 06/08/17 23:59 23:59 23:59 Intake Total 2078 / 2078 Output Total 2800 / 2800 Balance -722 / -722 Microbiology Past 72 Hours 06/08/17 05:00 Urine Catheter - Catheter Legionella Antigen - Final 06/08/17 05:00 Urine Catheter - Catheter Streptococcus pneumoniae Antigen (M - Final Laboratory Results 06/08/17 05:00: Urine Color Yellow, Urine Clarity Clear, Urine pH 6.0, Ur Specific [place] 1.020, Urine Protein 30 H, Urine Glucose (UA) Normal, Urine Ketones Negative, Urine Occult Blood Negative, Urine Nitrite Negative, Urine Bilirubin Negative, Urine Urobilinogen Normal, Ur Leukocyte Esterase Negative 06/08/17 06:00: Troponin I 0.14 H 06/08/17 06:50: POC Glucose 251 H 06/08/17 10:14: Troponin I 0.05 06/08/17 11:44: POC Glucose 177 H Current Medications Acetaminophen (Tylenol) 650 mg PO Q6H PRN PRN PRN Reason: FEVER Last Admin: 06/08/17 11:52 Dose: 650 mg Albuterol Sulfate (Ventolin Aerosols) 2.5 mg INHALATION Q2H PRN PRN PRN Reason: SHORTNESS OF BREATH Albuterol/Ipratropium (Duoneb) 3 ml INHALATION Q4H.RT [facility] Last Admin: 06/08/17 11:10 Dose: 3 ml Alprazolam (Xanax) 1 mg PO TID PRN PRN PRN Reason: ANXIETY Last Admin: 06/08/17 05:15 Dose: 1 mg Amlodipine Besylate (Norvasc) 10 mg PO BID [facility] Last Admin: 06/08/17 10:14 Dose: 10 mg Aspirin (Aspirin, Baby) 81 mg PO DAILY@0800 [facility] Last Admin: 06/08/17 08:34 Dose: 81 mg Atenolol (Tenormin (Beta Mikhail)) 50 mg PO DAILY [facility] Last Admin: 06/08/17 10:15 Dose: 50 mg Atorvastatin Calcium (Lipitor) 40 mg PO DAILY@2200 [facility] Citalopram Hydrobromide (Celexa) 10 mg PO DAILY [facility] Last Admin: 06/08/17 10:15 Dose: 10 mg Dextrose (D50w Syringe) 0 gm IV X1 PRN; Protocol PRN Reason: Hypoglycemia Docusate Sodium (Colace) 100 mg PO BID PRN PRN Reason: Constipation Glucagon () 1 mg IM .X1 PRN PRN Reason: Hypoglycemia Guaifenesin (Mucinex) 1,200 mg PO BID [facility] Last Admin: 06/08/17 10:16 Dose: 1,200 mg Heparin Sodium (Porcine) (Heparin Na) 5,000 unit SC BID [facility] Last Admin: 06/08/17 10:15 Dose: 5,000 units Sodium Chloride () 1,000 mls @ 100 mls/hr IV .Q10H [facility] Stop: 06/08/17 14:22 Last Admin: 06/08/17 04:42 Dose: 100 mls/hr Aztreonam 1 gm/ Dextrose 50 mls @ 150 mls/hr IV Q8 [facility] Last Admin: 06/08/17 06:39 Dose: 150 mls/hr Vancomycin HCl 750 mg/ Sodium (Chloride) 265 mls @ 265 mls/hr IV Q12H [facility] Insulin Aspart (Novolog Flexpen (Bkc)) 0 units SC ACHS DAVIS PRN Reason: Protocol Last Admin: 06/08/17 11:47 Dose: 1 units Lisinopril (Zestril) 40 mg PO DAILY [facility] Last Admin: 06/08/17 10:15 Dose: 40 mg Magnesium Hydroxide (Milk Of Magnesia) 30 ml PO DAILY PRN PRN Reason: Constipation Ondansetron HCl (Zofran) 4 mg IV Q8H PRN PRN PRN Reason: NAUSEA Pantoprazole Sodium (Protonix) 40 mg PO DAILY [facility] Last Admin: 06/08/17 10:15 Dose: 40 mg Prednisone () 10 mg PO DAILYCM [facility] Last Admin: 06/08/17 08:34 Dose: 10 mg Pregabalin (Lyrica) 200 mg PO TID [facility] Last Admin: 06/08/17 05:15 Dose: 200 mg Sodium Chloride () 5 - 30 ml IV UD PRN PRN Reason: SALINE FLUSH Medical Necessity - Tobacco Use Smoking Status: Former smoker Assessment/Plan 56 years old female patient admitted with cough, shortness of breath and subjective fever and found to have bilateral basilar infiltrate more on the right lung. She had a recent history of right shoulder repair surgery on April 10, 2017. 1. Acute on chronic hypoxic respiratory failure, currently to #2, improving, off BiPAP, on 4 L of oxygen on, continue to wean off oxygen for SPO2 more than 94%, encourage use of incentive spirometer 2. Sepsis secondary to Bilateral HCAP, improving, blood cultures pending, urine streptococcal and Legionella antigen negative, on aztreonam and vancomycin, continue on the same antibiotics, and continue to monitor patient. 3. Recent right shoulder repair surgery on April 10, 2017, will continue with PT and OT treatment 4. Acute kidney injury, likely secondary to sepsis and dehydration, on IV fluids, labs in a.m. 5. Borderline elevated troponin secondary to demand ischemia sepsis, history of non-ST elevation [place], continue on aspirin, statin, atenolol and lisinopril. 6. COPD/chronic respiratory failure, on home oxygen 2L oxygen, 7. Hypertension, controlled, continue on Norvasc, atenolol and lisinopril. 8. Rheumatoid arthritis, fibromyalgia, on Lyrica. 9. DVT prophylaxis -Heparin SC Code Visit Inpatient E&M: 73274 Subs Hosp L2
--- NOTE | 2017-06-08 14:03 | PN_ITS ---
Subjective: Patient was seen and examined. She is very lethargic, apparently received a dose of Xanax with morphine last night. Vitals have remained stable. Admitted with sepsis secondary to HCAP. Unable to get a good history from the patient because she was very sleepy. No acute events according to the nurses. Objective: Physical Exam General: Lethargic, on 4L oxygen, not pale, not jaundiced HEENT: Atraumatic, PERRLA, EOMI Oral: Moist Mucosa, No Gingival or Mucosal Lesions/ Ulcerations Neck: Supple, No JVD, Negative Carotid Bruits, Trachea Midline, Thyroid Normal Size and Texture Lungs: No wheeze, Diminished, Rales, Rhonchi, Short of Breath, Tachypneic, - - Decreased breath sounds bilateral, bilateral basal crackles. Cardiovascular: Regular rate, Regular Rhythm, Normal S1, Normal S2, No murmurs, PMI Normal, Tachycardic Abdomen: Bowel Sounds Present, Soft, Non Tender, Non-Distended, No Hepato- splenomegaly, Obese Extremities: No clubbing, No cyanosis, No edema Skin: No rashes, No breakdown Lymphatic: No Cervical, Supraclavicular, or Inguinal Adenopathy Neurological:Grossly intact, unable to complete exam. Psych/Mental Status: Lethargic Vitals/I&O's: Vital Signs Temp Pulse Resp BP Pulse Ox 97.7 F L 89 20 H 110/70 95 06/08/17 08:20 06/08/17 12:05 06/08/17 11:10 06/08/17 08:20 06/08/17 08:20 Oxygen Flow Rate (L/min) 4 Oxygen Delivery Method Nasal Cannula Weight: 87.6 kg Body Mass Index (BMI) 36.5 Intake and Output for Last 24 Hours 06/06/17 06/07/17 06/08/17 23:59 23:59 23:59 Intake Total 2078 / 2078 Output Total 2800 / 2800 Balance -722 / -722 Microbiology Past 72 Hours 06/08/17 05:00 Urine Catheter - Catheter Legionella Antigen - Final 06/08/17 05:00 Urine Catheter - Catheter Streptococcus pneumoniae Antigen ( M - Final Laboratory Results 06/08/17 05:00: Urine Color Yellow, Urine Clarity Clear, Urine pH 6.0, Ur Specific [place] 1.020, Urine Protein 30 H, Urine Glucose (UA) Normal, Urine Ketones Negative, Urine Occult Blood Negative, Urine Nitrite Negative, Urine Bilirubin Negative, Urine Urobilinogen Normal, Ur Leukocyte Esterase Negative 06/08/17 06:00: Troponin I 0.14 H 06/08/17 06:50: POC Glucose 251 H 06/08/17 10:14: Troponin I 0.05 06/08/17 11:44: POC Glucose 177 H Current Medications Acetaminophen (Tylenol) 650 mg PO Q6H PRN PRN PRN Reason: FEVER Last Admin: 06/08/17 11:52 Dose: 650 mg Albuterol Sulfate (Ventolin Aerosols) 2.5 mg INHALATION Q2H PRN PRN PRN Reason: SHORTNESS OF BREATH Albuterol/Ipratropium (Duoneb) 3 ml INHALATION Q4H.RT [facility] Last Admin: 06/08/17 11:10 Dose: 3 ml Alprazolam (Xanax) 1 mg PO TID PRN PRN PRN Reason: ANXIETY Last Admin: 06/08/17 05:15 Dose: 1 mg Amlodipine Besylate (Norvasc) 10 mg PO BID [facility] Last Admin: 06/08/17 10:14 Dose: 10 mg Aspirin (Aspirin, Baby) 81 mg PO DAILY@0800 [facility] Last Admin: 06/08/17 08:34 Dose: 81 mg Atenolol (Tenormin (Beta Mikhail)) 50 mg PO DAILY [facility] Last Admin: 06/08/17 10:15 Dose: 50 mg Atorvastatin Calcium (Lipitor) 40 mg PO DAILY@2200 [facility] Citalopram Hydrobromide (Celexa) 10 mg PO DAILY [facility] Last Admin: 06/08/17 10:15 Dose: 10 mg Dextrose (D50w Syringe) 0 gm IV X1 PRN; Protocol PRN Reason: Hypoglycemia Docusate Sodium (Colace) 100 mg PO BID PRN PRN Reason: Constipation Glucagon () 1 mg IM .X1 PRN PRN Reason: Hypoglycemia Guaifenesin (Mucinex) 1,200 mg PO BID [facility] Last Admin: 06/08/17 10:16 Dose: 1,200 mg Heparin Sodium (Porcine) (Heparin Na) 5,000 unit SC BID [facility] Last Admin: 06/08/17 10:15 Dose: 5,000 units Sodium Chloride () 1,000 mls @ 100 mls/hr IV .Q10H [facility] Stop: 06/08/17 14:22 Last Admin: 06/08/17 04:42 Dose: 100 mls/hr Aztreonam 1 gm/ Dextrose 50 mls @ 150 mls/hr IV Q8 [facility] Last Admin: 06/08/17 06:39 Dose: 150 mls/hr Vancomycin HCl 750 mg/ Sodium (Chloride) 265 mls @ 265 mls/hr IV Q12H [facility] Insulin Aspart (Novolog Flexpen (Bkc)) 0 units SC ACHS DAVIS PRN Reason: Protocol Last Admin: 06/08/17 11:47 Dose: 1 units Lisinopril (Zestril) 40 mg PO DAILY [facility] Last Admin: 06/08/17 10:15 Dose: 40 mg Magnesium Hydroxide (Milk Of Magnesia) 30 ml PO DAILY PRN PRN Reason: Constipation Ondansetron HCl (Zofran) 4 mg IV Q8H PRN PRN PRN Reason: NAUSEA Pantoprazole Sodium (Protonix) 40 mg PO DAILY [facility] Last Admin: 06/08/17 10:15 Dose: 40 mg Prednisone () 10 mg PO DAILYCM [facility] Last Admin: 06/08/17 08:34 Dose: 10 mg Pregabalin (Lyrica) 200 mg PO TID [facility] Last Admin: 06/08/17 05:15 Dose: 200 mg Sodium Chloride () 5 - 30 ml IV UD PRN PRN Reason: SALINE FLUSH Medical Necessity - Tobacco Use Smoking Status: Former smoker Assessment/Plan 56 years old female patient admitted with cough, shortness of breath and subjective fever and found to have bilateral basilar infiltrate more on the right lung. She had a recent history of right shoulder repair surgery on April 10, 2017. 1. Acute on chronic hypoxic respiratory failure, currently to #2, improving, off BiPAP, on 4 L of oxygen on, continue to wean off oxygen for SPO2 more than 94%, encourage use of incentive spirometer 2. Sepsis secondary to Bilateral HCAP, improving, blood cultures pending, urine streptococcal and Legionella antigen negative, on aztreonam and vancomycin, continue on the same antibiotics, and continue to monitor patient. 3. Recent right shoulder repair surgery on April 10, 2017, will continue with PT and OT treatment 4. Acute kidney injury, likely secondary to sepsis and dehydration, on IV fluids , labs in a.m. 5. Borderline elevated troponin secondary to demand ischemia sepsis, history of non-ST elevation [place], continue on aspirin, statin, atenolol and lisinopril. 6. COPD/chronic respiratory failure, on home oxygen 2L oxygen, 7. Hypertension, controlled, continue on Norvasc, atenolol and lisinopril. 8. Rheumatoid arthritis, fibromyalgia, on Lyrica. 9. DVT prophylaxis -Heparin SC Code Visit Inpatient E&M: 28745 Subs Hosp L2
[2017-06-08] MEDS: oxyCODONE 5 MG Tablet PO ×2 (15:50→21:59)
[2017-06-08 16:10] LABS: Bedside Glucose 192 mg/dL (70-110)
[2017-06-08] MEDS: Atorvastatin Calcium 40 MG Tablet PO (21:36)
[2017-06-08 23:15] LABS: Bedside Glucose 212 mg/dL (70-110)
[2017-06-09] VITALS (21 sets, daily range): BP systolic 85–122; BP diastolic 45–74; PULSE 82–97; RESP 16–20; TEMP 36.2–36.9; O2SAT 94–97
[2017-06-09] MEDS: Ipratropium/Albuterol Sulfate 3 ML AMPUL.NEB INHALATION ×6 (02:20→23:30)
[2017-06-09] MEDS: Pregabalin 50 MG Capsule 200 MG PO ×3 (05:55→22:03)
[2017-06-09 06:03] LABS: Absolute Lymphocyte Count 1.43 X10^3/ul (0.83-4.51); Absolute Neutrophil Count 11.9 X10^3/uL (2.0-7.7); Hematocrit 33.8 % (37-47); Hemoglobin 10.8 g/dl (12.0-15.0); Lymphocyte # 1.43 X10^3/ul (4.0); Lymphocyte % 9.8 % (19-41); Mean Corpuscular Hgb 30.6 pg (27.0-32.0); Mean Corpuscular Volume 95.8 fL (81-99); Mean Platelet Vol. 11.8 fl (6.2-12.0); Monocyte# 1.27 X10^3/uL; Monocyte% 8.7 % (0-10); Neutrophil # 11.86 X10^3/uL (2.7-7.7); Neutrophil % 81.2 % (47-70); Platelet Count 198 K/mm3 (150-450); RBC Distribution Width CV 13.8 % (11.6-14.6); RBC Distribution Width SD 45.1 fl (35.1-43.9); Red Blood Count 3.53 M/mm3 (4.2-5.4); White Blood Count 14.6 K/mm3 (4.4-11.0)
[2017-06-09 06:11] LABS: POSITIVE COUNT NO; POSITIVE DIFFERENTIAL NO; POSITIVE MORPHOLOGY NO
[2017-06-09 06:16] LABS: Anion Gap 9 (5-15); BUN 15 mg/dL (7-18); BUN/Creat Ratio 17.4 RATIO (10-20); Calcium,Total 7.9 mg/dL (8.5-10.1); Chloride 110 mmol/L (98-107); Creatinine, Serum 0.86 mg/dL (0.55-1.02); EST Glomerular Filtration Rate 72 mL/min (>60); Est Glom Filt Rate - Afr Amer 87 mL/min (>60); Estimated Creatinine Clearance 55.12 ml/min; Glucose 142 mg/dL (74-106); Potassium 4.2 mmol/L (3.5-5.1); Sodium Level 144 mmol/L (136-145)
[2017-06-09 07:05] LABS: Bedside Glucose 145 mg/dL (70-110)
[2017-06-09] MEDS: ALPRAZolam 0.5 MG Tablet 1 MG PO ×2 (08:40→22:08)
[2017-06-09] MEDS: predniSONE 10 MG Tablet PO (08:40)
[2017-06-09] MEDS: Aspirin 81 MG TAB.CHEW PO (08:40)
[2017-06-09] MEDS: Citalopram 10 MG Tablet PO (11:17)
[2017-06-09] MEDS: Pantoprazole Sodium 40 MG Tablet PO (11:17)
[2017-06-09] MEDS: guaiFENesin 1,200 MG Tablet 1200 MG PO ×2 (11:18→21:59)
[2017-06-09 11:56] LABS: Bedside Glucose 151 mg/dL (70-110)
[2017-06-09] MEDS: 0.9% Normal Saline 1,000 ML 100 ML IV (12:33)
[2017-06-09] MEDS: Acetaminophen 325 MG Tablet 650 MG PO (13:47)
[2017-06-09] MEDS: oxyCODONE 5 MG Tablet PO (13:50)
[2017-06-09] MEDS: 0.9% NaCl Peripheral Flush Adult/Peds IV (15:34)
--- NOTE | 2017-06-09 15:39 | PCM.PROGNOTE ---
<Crispin Delgado - Last Filed: 06/09/17 15:39> Subjective: Pt sleepy this AM. Still SOB and requiring 4 lpm O2. She complains of right shoulder pain. She would like ice, per ortho she cannot have heat. She continues to have a productive cough. No edema. No fevers or chills. No CP. No palp/dizziness/or LH at this time. Her BP was poor this AM and she was placed on IV maintenance fluids and BP meds and opiates were held. - Physical Exam General: Alert, Oriented x3, Cooperative HEENT: Atraumatic, PERRLA, EOMI, Normocephalic Neck: Supple, No JVD, Negative Carotid Bruits Lungs: Rhonchi Cardiovascular: Regular rate, No murmurs Abdomen: Bowel Sounds Present, Soft, Non Tender Extremities: No edema, Capillary Refill Less than 3 Seconds Skin: No rashes, No breakdown Musculoskeletal: No Tenderness to Palpation of Joints or Extremities Neurological: Cranial nerves II-XII grossly intact Psych/Mental Status: Normal Affect, Appropriate, Alert and oriented to time, place, person, mood and affect Vital Signs Temp Pulse Resp BP Pulse Ox 98.0 F 93 18 114/70 95 06/09/17 13:45 06/09/17 15:22 06/09/17 15:22 06/09/17 13:45 06/09/17 13:45 Oxygen Flow Rate (L/min) 4 Oxygen Delivery Method Room Air Weight: 87.6 kg Body Mass Index (BMI) 36.5 Intake and Output for Last 24 Hours 06/07/17 06/08/17 06/09/17 23:59 23:59 23:59 Intake Total 3375 / 3375 2086 / 2086 Output Total 3750 / 3750 1200 / 1200 Balance -375 / -375 886 / 886 Microbiology Past 72 Hours 06/09/17 11:35 Respiratory Panel (PCR) - Final Mucosa - Nose 06/08/17 15:55 Gram Stain - Final Sputum, Expectorated/Coughed Respiratory Culture - Preliminary 06/08/17 05:00 Urine Culture - Preliminary Urine Catheter - Catheter Staphylococcus species 06/08/17 05:00 Legionella Antigen - Final Urine Catheter - Catheter 06/08/17 05:00 Streptococcus pneumoniae Antigen (M - Final Urine Catheter - Catheter Laboratory Tests Past 24 Hrs 06/08/17 06/09/17 06/09/17 16:15 05:23 05:23 WBC 14.6 H RBC 3.53 L Hgb 10.8 L Hct 33.8 L MCV 95.8 MCH 30.6 MCHC 32.0 RDW 13.8 RDW Differential 45.1 H Plt Count 198 MPV 11.8 Immature Gran % (Auto) 0.300 Neut % (Auto) 81.2 H Lymph % (Auto) 9.8 L [place] % (Auto) 8.7 Eos % (Auto) 0.0 Baso % (Auto) 0.0 Absolute Neuts (auto) 11.9 H Absolute Lymphs (auto) 1.43 Total Counted Not Reportable Sodium 144 Potassium 4.2 Chloride 110 H Carbon Dioxide 25.0 Anion Gap 9 BUN 15 Creatinine 0.86 Estim Creat Clear Calc 55.12 Est GFR (MDRD) Af Amer 87 Est GFR (MDRD) Non-Af 72 BUN/Creatinine Ratio 17.4 Glucose 142 H Calcium 7.9 L Troponin I 0.03 POC Glucose 06/09/17 06/09/17 06/08/17 11:47 06:47 21:46 POC Glucose 151 H 145 H 212 H 06/08/17 15:52 POC Glucose 192 H Medical Necessity - Tobacco Use Smoking Status: Former smoker Assessment/Plan 1. Acute on chronic hypoxic respiratory failure 2/2 acute sepsis from BL HCAP - continue aztreonam and vanc. Urine cx with staph. Continue mucinex, albuterol/ipratropium, IS, PEP therapy. Off Bipap now. did not use last night. Weaned today from 4 liters to room air. -Resp panel is neg -Blood Cx pending -Sputum cx pending -urine antigens neg -Echo with EF 55%, stage 2 diastolic dysfunction, 2+ MVI, PASP 39 mmHg 2. Hypotension - added IV maintenance fluids and held AM BP meds. 3. COPD, chronic resp failure - on home o2. Complicated by home xanax and opiate use, and untreated JD. 4. CAD - prior NSTEMI. No CP. Indeterminate trop at admission, trended down. On statin, BB, AKANKSHA, CCB 5. Hx RA/Fibromyalgia - chronic steroid use. A1C 5.6. At risk of steroid induced diabetes. 6. Hx Bipolar disorder - home meds 7. HTN - held for hypotension. 8. 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 Low carb diet given risk for diabetes. DVT ppx: heparin DC planning: PTOT This patient was seen by Crispin Delgado PA-C under the supervision of Doctor Cassidy. <Bria Benjamin - Last Filed: 06/09/17 17:10> - Physical Exam Vital Signs Temp Pulse Resp BP Pulse Ox 98.0 F 92 18 114/70 95 06/09/17 13:45 06/09/17 15:24 06/09/17 15:22 06/09/17 13:45 06/09/17 13:45 Oxygen Flow Rate (L/min) 4 Oxygen Delivery Method Room Air Weight: 87.6 kg Body Mass Index (BMI) 36.5 Intake and Output for Last 24 Hours 06/07/17 06/08/17 06/09/17 23:59 23:59 23:59 Intake Total 3375 / 3375 2086 / 2086 Output Total 3750 / 3750 1200 / 1200 Balance -375 / -375 886 / 886 Microbiology Past 72 Hours 06/09/17 11:35 Respiratory Panel (PCR) - Final Mucosa - Nose 06/08/17 15:55 Gram Stain - Final Sputum, Expectorated/Coughed Respiratory Culture - Preliminary 06/08/17 05:00 Urine Culture - Preliminary Urine Catheter - Catheter Staphylococcus species 06/08/17 05:00 Legionella Antigen - Final Urine Catheter - Catheter 06/08/17 05:00 Streptococcus pneumoniae Antigen (M - Final Urine Catheter - Catheter Laboratory Tests Past 24 Hrs 06/08/17 06/09/17 06/09/17 16:15 05:23 05:23 WBC 14.6 H RBC 3.53 L Hgb 10.8 L Hct 33.8 L MCV 95.8 MCH 30.6 MCHC 32.0 RDW 13.8 RDW Differential 45.1 H Plt Count 198 MPV 11.8 Immature Gran % (Auto) 0.300 Neut % (Auto) 81.2 H Lymph % (Auto) 9.8 L [place] % (Auto) 8.7 Eos % (Auto) 0.0 Baso % (Auto) 0.0 Absolute Neuts (auto) 11.9 H Absolute Lymphs (auto) 1.43 Total Counted Not Reportable Sodium 144 Potassium 4.2 Chloride 110 H Carbon Dioxide 25.0 Anion Gap 9 BUN 15 Creatinine 0.86 Estim Creat Clear Calc 55.12 Est GFR (MDRD) Af Amer 87 Est GFR (MDRD) Non-Af 72 BUN/Creatinine Ratio 17.4 Glucose 142 H Calcium 7.9 L Troponin I 0.03 POC Glucose 06/09/17 06/09/17 06/08/17 11:47 06:47 21:46 POC Glucose 151 H 145 H 212 H Assessment/Plan Patient was seen and examined independently. I agree with the interval, physical exam and assessment and plan as documented by physician inside sales assistant Crispin Delgado. Patient is much improved, much awake, off BiPAP, on 4 L oxygen, she is chronically on 2 L of oxygen at home. Leukocytosis has improved, acute kidney injury resolved, will continue on aztreonam and vancomycin for now and de-escalate antibiotics from tomorrow. Code Visit Inpatient E&M: 40977 Subs Hosp L2
--- NOTE | 2017-06-09 15:53 | PN_ITS ---
<Crispin Delgado - Last Filed: 06/09/17 15:39> Subjective: Pt sleepy this AM. Still SOB and requiring 4 lpm O2. She complains of right shoulder pain. She would like ice, per ortho she cannot have heat. She continues to have a productive cough. No edema. No fevers or chills. No CP. No palp/dizziness/or LH at this time. Her BP was poor this AM and she was placed on IV maintenance fluids and BP meds and opiates were held. - Physical Exam General: Alert, Oriented x3, Cooperative HEENT: Atraumatic, PERRLA, EOMI, Normocephalic Neck: Supple, No JVD, Negative Carotid Bruits Lungs: Rhonchi Cardiovascular: Regular rate, No murmurs Abdomen: Bowel Sounds Present, Soft, Non Tender Extremities: No edema, Capillary Refill Less than 3 Seconds Skin: No rashes, No breakdown Musculoskeletal: No Tenderness to Palpation of Joints or Extremities Neurological: Cranial nerves II-XII grossly intact Psych/Mental Status: Normal Affect, Appropriate, Alert and oriented to time, place, person, mood and affect Vital Signs Temp Pulse Resp BP Pulse Ox 98.0 F 93 18 114/70 95 06/09/17 13:45 06/09/17 15:22 06/09/17 15:22 06/09/17 13:45 06/09/17 13:45 Oxygen Flow Rate (L/min) 4 Oxygen Delivery Method Room Air Weight: 87.6 kg Body Mass Index (BMI) 36.5 Intake and Output for Last 24 Hours 06/07/17 06/08/17 06/09/17 23:59 23:59 23:59 Intake Total 3375 / 3375 2086 / 2086 Output Total 3750 / 3750 1200 / 1200 Balance -375 / -375 886 / 886 Microbiology Past 72 Hours 06/09/17 11:35 Respiratory Panel (PCR) - Final Mucosa - Nose 06/08/17 15:55 Gram Stain - Final Sputum, Expectorated/Coughed Respiratory Culture - Preliminary 06/08/17 05:00 Urine Culture - Preliminary Urine Catheter - Catheter Staphylococcus species 06/08/17 05:00 Legionella Antigen - Final Urine Catheter - Catheter 06/08/17 05:00 Streptococcus pneumoniae Antigen (M - Final Urine Catheter - Catheter Laboratory Tests Past 24 Hrs 06/08/17 06/09/17 06/09/17 16:15 05:23 05:23 WBC 14.6 H RBC 3.53 L Hgb 10.8 L Hct 33.8 L MCV 95.8 MCH 30.6 MCHC 32.0 RDW 13.8 RDW Differential 45.1 H Plt Count 198 MPV 11.8 Immature Gran % (Auto) 0.300 Neut % (Auto) 81.2 H Lymph % (Auto) 9.8 L [place] % (Auto) 8.7 Eos % (Auto) 0.0 Baso % (Auto) 0.0 Absolute Neuts (auto) 11.9 H Absolute Lymphs (auto) 1.43 Total Counted Not Reportable Sodium 144 Potassium 4.2 Chloride 110 H Carbon Dioxide 25.0 Anion Gap 9 BUN 15 Creatinine 0.86 Estim Creat Clear Calc 55.12 Est GFR (MDRD) Af Amer 87 Est GFR (MDRD) Non-Af 72 BUN/Creatinine Ratio 17.4 Glucose 142 H Calcium 7.9 L Troponin I 0.03 POC Glucose 06/09/17 06/09/17 06/08/17 11:47 06:47 21:46 POC Glucose 151 H 145 H 212 H 06/08/17 15:52 POC Glucose 192 H Medical Necessity - Tobacco Use Smoking Status: Former smoker Assessment/Plan 1. Acute on chronic hypoxic respiratory failure 2/2 acute sepsis from BL HCAP - continue aztreonam and vanc. Urine cx with staph. Continue mucinex, albuterol/ ipratropium, IS, PEP therapy. Off Bipap now. did not use last night. Weaned today from 4 liters to room air. -Resp panel is neg -Blood Cx pending -Sputum cx pending -urine antigens neg -Echo with EF 55%, stage 2 diastolic dysfunction, 2+ MVI, PASP 39 mmHg 2. Hypotension - added IV maintenance fluids and held AM BP meds. 3. COPD, chronic resp failure - on home o2. Complicated by home xanax and opiate use, and untreated JD. 4. CAD - prior NSTEMI. No CP. Indeterminate trop at admission, trended down. On statin, BB, AKANKSHA, CCB 5. Hx RA/Fibromyalgia - chronic steroid use. A1C 5.6. At risk of steroid induced diabetes. 6. Hx Bipolar disorder - home meds 7. HTN - held for hypotension. 8. Obesity - etl database developer consult. Low carb diet given risk for diabetes. DVT ppx: heparin DC planning: PTOT This patient was seen by Crispin Delgado PA-C under the supervision of Doctor Cassidy. <Bria Benjamin - Last Filed: 06/09/17 17:10> - Physical Exam Vital Signs Temp Pulse Resp BP Pulse Ox 98.0 F 92 18 114/70 95 06/09/17 13:45 06/09/17 15:24 06/09/17 15:22 06/09/17 13:45 06/09/17 13:45 Oxygen Flow Rate (L/min) 4 Oxygen Delivery Method Room Air Weight: 87.6 kg Body Mass Index (BMI) 36.5 Intake and Output for Last 24 Hours 06/07/17 06/08/17 06/09/17 23:59 23:59 23:59 Intake Total 3375 / 3375 2086 / 2086 Output Total 3750 / 3750 1200 / 1200 Balance -375 / -375 886 / 886 Microbiology Past 72 Hours 06/09/17 11:35 Respiratory Panel (PCR) - Final Mucosa - Nose 06/08/17 15:55 Gram Stain - Final Sputum, Expectorated/Coughed Respiratory Culture - Preliminary 06/08/17 05:00 Urine Culture - Preliminary Urine Catheter - Catheter Staphylococcus species 06/08/17 05:00 Legionella Antigen - Final Urine Catheter - Catheter 06/08/17 05:00 Streptococcus pneumoniae Antigen (M - Final Urine Catheter - Catheter Laboratory Tests Past 24 Hrs 06/08/17 06/09/17 06/09/17 16:15 05:23 05:23 WBC 14.6 H RBC 3.53 L Hgb 10.8 L Hct 33.8 L MCV 95.8 MCH 30.6 MCHC 32.0 RDW 13.8 RDW Differential 45.1 H Plt Count 198 MPV 11.8 Immature Gran % (Auto) 0.300 Neut % (Auto) 81.2 H Lymph % (Auto) 9.8 L [place] % (Auto) 8.7 Eos % (Auto) 0.0 Baso % (Auto) 0.0 Absolute Neuts (auto) 11.9 H Absolute Lymphs (auto) 1.43 Total Counted Not Reportable Sodium 144 Potassium 4.2 Chloride 110 H Carbon Dioxide 25.0 Anion Gap 9 BUN 15 Creatinine 0.86 Estim Creat Clear Calc 55.12 Est GFR (MDRD) Af Amer 87 Est GFR (MDRD) Non-Af 72 BUN/Creatinine Ratio 17.4 Glucose 142 H Calcium 7.9 L Troponin I 0.03 POC Glucose 06/09/17 06/09/17 06/08/17 11:47 06:47 21:46 POC Glucose 151 H 145 H 212 H Assessment/Plan Patient was seen and examined independently. I agree with the interval, physical exam and assessment and plan as documented by physician data assistant Crispin Delgado. Patient is much improved, much awake, off BiPAP, on 4 L oxygen, she is chronically on 2 L of oxygen at home. Leukocytosis has improved, acute kidney injury resolved, will continue on aztreonam and vancomycin for now and de -escalate antibiotics from tomorrow. Code Visit Inpatient E&M: 27409 Subs Hosp L2
[2017-06-09 17:56] LABS: Bedside Glucose 200 mg/dL (70-110)
[2017-06-09 19:06] LABS: Vancomycin, Trough Level 11.3 ug/mL (5.0-15.0)
--- NOTE | 2017-06-09 20:26 | PHA.PHARE_ITS ---
Consult Pharmacy has been consulted to manage selected antiobiotic: Vancomycin Type of Consult: Follow-up Suspected Infection: Pneumonia Prior Doses of Antibiotics Received/Current Regimen: Medications Vancomycin HCl 1,250 mg/ (Sodium Chloride) 275 mls @ 183.333 mls/hr IV Q12H DAVIS Discontinued Medications Vancomycin HCl 750 mg/ Sodium (Chloride) 265 mls @ 265 mls/hr IV Q12H DAVIS Last Admin: 06/09/17 18:54 Dose: 265 mls/hr Labs: Sodium 144 mmol/L (136-145) 06/09/17 05:23 Potassium 4.2 mmol/L (3.5-5.1) 06/09/17 05:23 Chloride 110 mmol/L (98-107) H 06/09/17 05:23 Carbon Dioxide 25.0 mmol/L (21.0-32.0) 06/09/17 05:23 Anion Gap 9 (5-15) 06/09/17 05:23 BUN 15 mg/dL (7-18) 06/09/17 05:23 Creatinine 0.86 mg/dL (0.55-1.02) 06/09/17 05:23 Est GFR (MDRD) Af Amer 87 mL/min (>60) 06/09/17 05:23 Est GFR (MDRD) Non-Af 72 mL/min (>60) 06/09/17 05:23 BUN/Creatinine Ratio 17.4 RATIO (10-20) 06/09/17 05:23 Glucose 142 mg/dL (74-106) H 06/09/17 05:23 Vancomycin Trough 11.3 ug/mL (5.0-15.0) 06/09/17 18:04 Microbiology: Microbiology 06/09/17 11:35 Mucosa - Nose Respiratory Panel (PCR) - Final 06/08/17 15:55 Sputum, Expectorated/Coughed Gram Stain - Final 06/08/17 15:55 Sputum, Expectorated/Coughed Respiratory Culture - Preliminary 06/08/17 05:00 Urine Catheter - Catheter Urine Culture - Preliminary Staphylococcus species 06/08/17 05:00 Urine Catheter - Catheter Legionella Antigen - Final 06/08/17 05:00 Urine Catheter - Catheter Streptococcus pneumoniae Antigen ( M - Final Weight used for dosin.6 kg Estimated Creatinine Clearance: 85 Goal Trough: 15-20 mcg/mL Pharmacy Plan for Drug Dosing: Pharmacy Service will continue to monitor and adjust dosing as required. Follow-Up Labs: Trough Vancomycin Labs to be done on [date and time ordered]: 06/11/17 @2134
[2017-06-09] MEDS: Atorvastatin Calcium 40 MG Tablet PO (21:58)
[2017-06-09] MEDS: amLODIPine 10 MG Tablet PO (21:59)
[2017-06-09 22:10] LABS: Bedside Glucose 143 mg/dL (70-110)
[2017-06-10] VITALS (14 sets, daily range): BP systolic 110–139; BP diastolic 76–89; PULSE 74–89; RESP 16–20; TEMP 36.6–36.9; O2SAT 92–94
[2017-06-10] MEDS: oxyCODONE 5 MG Tablet PO ×3 (02:54→21:18)
[2017-06-10] MEDS: 0.9% Normal Saline 1,000 ML 100 ML IV (02:57)
[2017-06-10 05:33] LABS: Absolute Lymphocyte Count 2.17 X10^3/ul (0.83-4.51); Absolute Neutrophil Count 7.7 X10^3/uL (2.0-7.7); Basophil# 0.03 X10^3/uL; Basophil% 0.3 % (0-1); Eosinophil# 0.12 X10^3/uL; Eosinophils% 1.1 % (0-5); Hematocrit 35.4 % (37-47); Hemoglobin 11.2 g/dl (12.0-15.0); Lymphocyte # 2.17 X10^3/ul (4.0); Lymphocyte % 20.1 % (19-41); Mean Corp Hgb Conc 31.6 g/gl (32-36); Mean Corpuscular Hgb 30.5 pg (27.0-32.0); Mean Corpuscular Volume 96.5 fL (81-99); Mean Platelet Vol. 11.3 fl (6.2-12.0); Monocyte# 0.77 X10^3/uL; Monocyte% 7.1 % (0-10); Neutrophil # 7.65 X10^3/uL (2.7-7.7); Neutrophil % 70.8 % (47-70); Platelet Count 172 K/mm3 (150-450); RBC Distribution Width CV 13.9 % (11.6-14.6); RBC Distribution Width SD 46.9 fl (35.1-43.9); Red Blood Count 3.67 M/mm3 (4.2-5.4); White Blood Count 10.8 K/mm3 (4.4-11.0)
[2017-06-10 05:39] LABS: POSITIVE COUNT NO; POSITIVE DIFFERENTIAL NO; POSITIVE MORPHOLOGY NO
[2017-06-10 05:41] LABS: Anion Gap 6 (5-15); BUN 20 mg/dL (7-18); BUN/Creat Ratio 22.3 RATIO (10-20); Calcium,Total 7.9 mg/dL (8.5-10.1); Chloride 113 mmol/L (98-107); EST Glomerular Filtration Rate 69 mL/min (>60); Est Glom Filt Rate - Afr Amer 84 mL/min (>60); Estimated Creatinine Clearance 52.67 ml/min; Glucose 92 mg/dL (74-106); Potassium 4.2 mmol/L (3.5-5.1); Sodium Level 144 mmol/L (136-145)
[2017-06-10] MEDS: Pregabalin 50 MG Capsule 200 MG PO ×3 (05:51→21:25)
[2017-06-10 07:05] LABS: Bedside Glucose 111 mg/dL (70-110)
[2017-06-10] MEDS: Ipratropium/Albuterol Sulfate 3 ML AMPUL.NEB INHALATION ×5 (07:37→22:24)
[2017-06-10] MEDS: Aspirin 81 MG TAB.CHEW PO (08:32)
[2017-06-10] MEDS: predniSONE 10 MG Tablet PO (08:32)
[2017-06-10] MEDS: Lisinopril 40 MG Tablet PO (10:07)
[2017-06-10] MEDS: ALPRAZolam 0.5 MG Tablet 1 MG PO ×2 (10:07→21:19)
[2017-06-10] MEDS: amLODIPine 10 MG Tablet PO ×2 (10:07→21:20)
[2017-06-10] MEDS: Atenolol 50 MG Tablet PO (10:08)
[2017-06-10] MEDS: guaiFENesin 1,200 MG Tablet 1200 MG PO ×2 (10:08→21:25)
[2017-06-10] MEDS: Pantoprazole Sodium 40 MG Tablet PO (10:08)
[2017-06-10] MEDS: Citalopram 10 MG Tablet PO (10:08)
[2017-06-10 11:36] LABS: Bedside Glucose 141 mg/dL (70-110)
[2017-06-10] MEDS: Ceftriaxone 1 GM/50 ML BAG IV (12:19)
--- NOTE | 2017-06-10 13:20 | PN_ITS ---
<Crispin Delgado - Last Filed: 06/10/17 13:15> Subjective: Pt continues to have nonproductive cough and SOB today. She is back on O2. She is very upset, anxious, and tearful after a dramatic conversation with her brother on the phone. She has no fevers or chills. She does have O2 at home but only uses it on a PRN basis. She currently is stable on 3 lpm. Right shoulder is still painful and with some limited ROM and weakness 2/2 recent surgery ( rotator cuff repair). No LE edema. - Physical Exam General: Alert, Oriented x3, Cooperative HEENT: Atraumatic, PERRLA, EOMI, Normocephalic Neck: Supple, No JVD, Negative Carotid Bruits Lungs: Normal air movement, Rales - faint, BL LL Cardiovascular: Regular rate, No murmurs Abdomen: Bowel Sounds Present, Soft, Non Tender Extremities: No edema, Capillary Refill Less than 3 Seconds Skin: No rashes, No breakdown Musculoskeletal: No Tenderness to Palpation of Joints or Extremities Neurological: Cranial nerves II-XII grossly intact Psych/Mental Status: Agitated, Anxious, Alert and oriented to time, place, person, mood and affect Vital Signs Temp Pulse Resp BP Pulse Ox 97.8 F 75 16 121/76 H 92 06/10/17 08:33 06/10/17 11:20 06/10/17 11:20 06/10/17 08:33 06/10/17 08:33 Oxygen Flow Rate (L/min) 3 Oxygen Delivery Method Nasal Cannula Weight: 87.6 kg Body Mass Index (BMI) 36.5 Intake and Output for Last 24 Hours 06/08/17 06/09/17 06/10/17 23:59 23:59 23:59 Intake Total 3375 / 3375 3720 / 3720 1994 Output Total 3750 / 3750 1200 / 1200 1650 / 1650 Balance -375 / -375 2520 / 2520 345 / 345 Microbiology Past 72 Hours 06/08/17 15:55 Gram Stain - Final Sputum, Expectorated/Coughed Respiratory Culture - Preliminary 06/08/17 05:00 Urine Culture - Final Urine Catheter - Catheter Staphylococcus haemolyticus 06/09/17 11:35 Respiratory Panel (PCR) - Final Mucosa - Nose 06/08/17 05:00 Legionella Antigen - Final Urine Catheter - Catheter 06/08/17 05:00 Streptococcus pneumoniae Antigen (M - Final Urine Catheter - Catheter Laboratory Tests Past 24 Hrs 06/09/17 06/10/17 06/10/17 18:04 05:10 05:10 WBC 10.8 RBC 3.67 L Hgb 11.2 L Hct 35.4 L MCV 96.5 MCH 30.5 MCHC 31.6 L RDW 13.9 RDW Differential 46.9 H Plt Count 172 MPV 11.3 Immature Gran % (Auto) 0.600 Neut % (Auto) 70.8 H Lymph % (Auto) 20.1 [place] % (Auto) 7.1 Eos % (Auto) 1.1 Baso % (Auto) 0.3 Absolute Neuts (auto) 7.7 Absolute Lymphs (auto) 2.17 Total Counted Not Reportable Sodium 144 Potassium 4.2 Chloride 113 H Carbon Dioxide 25.0 Anion Gap 6 BUN 20 H Creatinine 0.90 Estim Creat Clear Calc 52.67 Est GFR (MDRD) Af Amer 84 Est GFR (MDRD) Non-Af 69 BUN/Creatinine Ratio 22.3 H Glucose 92 Calcium 7.9 L Vancomycin Trough 11.3 POC Glucose 06/10/17 06/10/17 06/09/17 11:26 06:58 22:02 POC Glucose 141 H 111 H 143 H 06/09/17 16:19 POC Glucose 200 H Medical Necessity - Tobacco Use Smoking Status: Former smoker Assessment/Plan 1. Acute on chronic hypoxic respiratory failure 2/2 acute sepsis from BL HCAP - Abx changed to rocephin as recommended by pharmacy. Urine cx with staph. Continue mucinex, albuterol/ipratropium, IS, PEP therapy. Off Bipap now. Wean O2. Leukocytosis resolved. Plan to transition to omnicef to complete 7-10 days total therapy. -Resp panel is neg -Blood Cx pending -Sputum cx pending -urine antigens neg -Echo with EF 55%, stage 2 diastolic dysfunction, 2+ MVI, PASP 39 mmHg 2. Hypotension - stable. DC fluids, Restart antihypertensives if BP remains stable. 3. COPD, chronic resp failure - on home o2. Complicated by home xanax and opiate use, and untreated JD. 4. CAD - prior NSTEMI. No CP. Indeterminate trop at admission, trended down. On statin, BB, AKANKSHA, CCB 5. Hx RA/Fibromyalgia - chronic steroid use. A1C 5.6. At risk of steroid induced diabetes. 6. Hx Bipolar disorder - home meds 7. HTN - improved, as above. 8. Obesity - hemodialysis technician consult. Low carb diet given risk for diabetes. DVT ppx: heparin DC planning: PTOT This patient was seen by Crispin Delgado PA-C under the supervision of Doctor Rafy. <Sid Hillman - Last Filed: 06/10/17 15:59> Subjective: Seen and examined. Patient has history of COPD/asthmatic bronchitis. Patient also had episodes of pneumonia in the past and admitted this time with pneumonia. 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 - Physical Exam Lungs: Diminished - In bilateral lung bases, Rales Vital Signs Temp Pulse Resp BP Pulse Ox 98.3 F 80 16 139/89 H 92 06/10/17 14:25 06/10/17 15:23 06/10/17 15:23 06/10/17 14:25 06/10/17 14:25 Oxygen Flow Rate (L/min) 3 Oxygen Delivery Method Nasal Cannula Weight: 193 lb 1.999 oz Body Mass Index (BMI) 36.5 Intake and Output for Last 24 Hours 06/08/17 06/09/17 06/10/17 23:59 23:59 23:59 Intake Total 3375 / 3375 3720 / 3720 1994 Output Total 3750 / 3750 1200 / 1200 1650 / 1650 Balance -375 / -375 2520 / 2520 345 / 345 Microbiology Past 72 Hours 06/08/17 15:55 Gram Stain - Final Sputum, Expectorated/Coughed Respiratory Culture - Preliminary 06/08/17 05:00 Urine Culture - Final Urine Catheter - Catheter Staphylococcus haemolyticus 06/09/17 11:35 Respiratory Panel (PCR) - Final Mucosa - Nose 06/08/17 05:00 Legionella Antigen - Final Urine Catheter - Catheter 06/08/17 05:00 Streptococcus pneumoniae Antigen (M - Final Urine Catheter - Catheter Laboratory Tests Past 24 Hrs 06/09/17 06/10/17 06/10/17 18:04 05:10 05:10 WBC 10.8 RBC 3.67 L Hgb 11.2 L Hct 35.4 L MCV 96.5 MCH 30.5 MCHC 31.6 L RDW 13.9 RDW Differential 46.9 H Plt Count 172 MPV 11.3 Immature Gran % (Auto) 0.600 Neut % (Auto) 70.8 H Lymph % (Auto) 20.1 [place] % (Auto) 7.1 Eos % (Auto) 1.1 Baso % (Auto) 0.3 Absolute Neuts (auto) 7.7 Absolute Lymphs (auto) 2.17 Total Counted Not Reportable Sodium 144 Potassium 4.2 Chloride 113 H Carbon Dioxide 25.0 Anion Gap 6 BUN 20 H Creatinine 0.90 Estim Creat Clear Calc 52.67 Est GFR (MDRD) Af Amer 84 Est GFR (MDRD) Non-Af 69 BUN/Creatinine Ratio 22.3 H Glucose 92 Calcium 7.9 L Vancomycin Trough 11.3 POC Glucose 06/10/17 06/10/17 06/09/17 11:26 06:58 22:02 POC Glucose 141 H 111 H 143 H 06/09/17 16:19 POC Glucose 200 H Assessment/Plan This patient was seen in conjunction with Crispin VEGA. I have independently interviewed and examined the patient and reviewed pertinent history, examination findings, laboratory and plan of management. I have reviewed the note and agree with the documented findings with the few additional points. In brief, patient is admitted for acute on chronic hypoxic respiratory failure secondary to bilateral HCAP. Urine culture showing staph hemolyticus. Patient is not allergic to penicillin discussed with the pharmacist. Antibiotic changed to Rocephin. I have discussed my assessment with Crispin VEGA and orders have been reviewed. Clinical Impression(s) from Imaging Studies Chest X-Ray 06/08/17 02:05 IMPRESSION: Bilateral pneumonia. Small right pleural effusion. Code Visit Inpatient E&M: 70033 Subs Hosp L3
[2017-06-10 16:35] LABS: Bedside Glucose 130 mg/dL (70-110)
[2017-06-10] MEDS: Docusate Sodium 100 MG Capsule PO (21:18)
[2017-06-10] MEDS: Atorvastatin Calcium 40 MG Tablet PO (21:26)
[2017-06-10 21:56] LABS: Bedside Glucose 145 mg/dL (70-110)
--- NOTE | 2017-06-10 22:55 | CPS ---
Pt refuses PAP therapy at this time.
[2017-06-11] VITALS (11 sets, daily range): BP systolic 109–134; BP diastolic 69–83; PULSE 64–88; RESP 13–20; TEMP 36.1–37.5; O2SAT 88–94
[2017-06-11] MEDS: Ipratropium/Albuterol Sulfate 3 ML AMPUL.NEB INHALATION ×3 (02:18→11:05)
[2017-06-11] MEDS: Acetaminophen 325 MG Tablet 650 MG PO (02:37)
[2017-06-11] MEDS: oxyCODONE 5 MG Tablet PO ×2 (04:08→11:37)
[2017-06-11 06:15] LABS: Hematocrit 35.6 % (37-47); Hemoglobin 11.5 g/dl (12.0-15.0); Mean Corp Hgb Conc 32.3 g/gl (32-36); Mean Corpuscular Hgb 30.8 pg (27.0-32.0); Mean Corpuscular Volume 95.4 fL (81-99); Mean Platelet Vol. 11.2 fl (6.2-12.0); Platelet Count 201 K/mm3 (150-450); RBC Distribution Width CV 13.6 % (11.6-14.6); RBC Distribution Width SD 44.8 fl (35.1-43.9); Red Blood Count 3.73 M/mm3 (4.2-5.4); White Blood Count 10.1 K/mm3 (4.4-11.0)
[2017-06-11 06:19] LABS: Scan Indicated on CBC? Y/N NO
[2017-06-11] MEDS: Pregabalin 50 MG Capsule 200 MG PO ×2 (06:42→14:23)
[2017-06-11 06:56] LABS: Bedside Glucose 103 mg/dL (70-110)
[2017-06-11] MEDS: Aspirin 81 MG TAB.CHEW PO (08:17)
[2017-06-11] MEDS: predniSONE 10 MG Tablet PO (08:17)
[2017-06-11] MEDS: amLODIPine 10 MG Tablet PO (09:13)
[2017-06-11] MEDS: Ceftriaxone 1 GM/50 ML BAG IV (09:13)
[2017-06-11] MEDS: Pantoprazole Sodium 40 MG Tablet PO (09:13)
[2017-06-11] MEDS: guaiFENesin 1,200 MG Tablet 1200 MG PO (09:13)
[2017-06-11] MEDS: Atenolol 50 MG Tablet PO (09:14)
[2017-06-11] MEDS: Lisinopril 40 MG Tablet PO (09:14)
[2017-06-11 11:21] LABS: Bedside Glucose 133 mg/dL (70-110)
--- NOTE | 2017-06-11 13:55 | PCM.DC ---
You will use the following diet at home:: Calorie/Carbohydrate Controlled (specify 1200, 1400, etc) - 1800 oralia / day, Cardiac Your food should be the consistency of: Regular Your liquids should be the consistency of: Regular/Thin Discharge Activity: Return to Normal Activity Allergies/Adverse Reactions: Allergies methotrexate Allergy (Verified 06/08/17 01:57) Other nadolol Allergy (Verified 06/08/17 01:57) Unknown baclofen Adverse Reaction (Verified 06/08/17 01:57) Other MOOD SWINGS lorazepam [From Ativan] Adverse Reaction (Verified 06/08/17 01:57) Nausea propranolol Adverse Reaction (Verified 06/08/17 01:57) Other COMBID Allergy (Uncoded 06/08/17 01:57) Unknown Medications to take at Discharge Albuterol IH (ProAir) [Proair Hfa] 2 puff INHALATION Q4H PRN PRN 07/26/14 Lisinopril [Zestril] 40 mg PO DAILY 07/26/14 Pregabalin [Lyrica] 200 mg PO TID 07/26/14 Albuterol IH (ProAir) [Proair Hfa] 1 puff INHALATION Q4H PRN PRN 03/21/15 Fluticasone 0.05% [Flonase Nasal [place]] 1 spray NASAL BID 03/21/15 Alprazolam [Xanax] 1 mg PO TID PRN 3 Days #8 tab 06/04/17 Amlodipine [Norvasc] 10 mg PO BID 06/04/17 Aspirin [Aspirin, Baby] 81 mg PO DAILY@0800 06/04/17 Atenolol [Tenormin (beta castro)] 50 mg PO DAILY 06/04/17 Atorvastatin Calcium 40 mg PO DAILY 06/04/17 Dexlansoprazole [Dexilant] 60 mg PO DAILY 06/04/17 Docusate Sodium [Colace] 100 mg PO BID PRN 06/04/17 Furosemide 40 mg PO DAILY 06/04/17 Ipratropium/Albuterol Respimat [Combivent Respimat Inhal [place]] 1 puff INHALATION 4X/DAY PRN PRN 06/04/17 Lactulose 30 ml PO QWEEK 06/04/17 Nitroglycerin 0.4 mg SL PRN PRN 06/04/17 Ondansetron [Zofran Odt] 4 mg PO Q8H PRN PRN #10 tab 06/04/17 Potassium Chloride [Klor-Con M20] 20 meq PO DAILY 06/04/17 Prednisone 5 mg PO DAILY 06/04/17 Zolpidem Tartrate 5 mg PO QHS PRN 06/04/17 Cefdinir [Omnicef [equiv]] 300 mg PO Q12H #6 cap 06/11/17 The following prescriptions were given: Cefdinir [Omnicef [equiv]] 300 mg PO Q12H #6 cap Primary Care Physician: Velvet Pepe MD [Primary Care Provider] - Please follow up with your Primary Care Physician in: 2 weeks Please Follow Up With: Katie Yun NP-C When: As directed Please Follow Up With: Orthopedics When: As directed. Proposed Discharge Date: 06/11/17
--- NOTE | 2017-06-11 14:01 | DCINST_ITS ---
You will use the following diet at home:: Calorie/Carbohydrate Controlled ( specify 1200, 1400, etc) - 1800 roalia / day, Cardiac Your food should be the consistency of: Regular Your liquids should be the consistency of: Regular/Thin Discharge Activity: Return to Normal Activity Allergies/Adverse Reactions: Allergies methotrexate Allergy (Verified 06/08/17 01:57) Other nadolol Allergy (Verified 06/08/17 01:57) Unknown baclofen Adverse Reaction (Verified 06/08/17 01:57) Other MOOD SWINGS lorazepam [From Ativan] Adverse Reaction (Verified 06/08/17 01:57) Nausea propranolol Adverse Reaction (Verified 06/08/17 01:57) Other COMBID Allergy (Uncoded 06/08/17 01:57) Unknown Medications to take at Discharge Albuterol IH (ProAir) [Proair Hfa] 2 puff INHALATION Q4H PRN PRN 07/26/14 Lisinopril [Zestril] 40 mg PO DAILY 07/26/14 Pregabalin [Lyrica] 200 mg PO TID 07/26/14 Albuterol IH (ProAir) [Proair Hfa] 1 puff INHALATION Q4H PRN PRN 03/21/15 Fluticasone 0.05% [Flonase Nasal [place]] 1 spray NASAL BID 03/21/15 Alprazolam [Xanax] 1 mg PO TID PRN 3 Days #8 tab 06/04/17 Amlodipine [Norvasc] 10 mg PO BID 06/04/17 Aspirin [Aspirin, Baby] 81 mg PO DAILY@0800 06/04/17 Atenolol [Tenormin (beta castro)] 50 mg PO DAILY 06/04/17 Atorvastatin Calcium 40 mg PO DAILY 06/04/17 Dexlansoprazole [Dexilant] 60 mg PO DAILY 06/04/17 Docusate Sodium [Colace] 100 mg PO BID PRN 06/04/17 Furosemide 40 mg PO DAILY 06/04/17 Ipratropium/Albuterol Respimat [Combivent Respimat Inhal [place]] 1 puff INHALATION 4X/DAY PRN PRN 06/04/17 Lactulose 30 ml PO QWEEK 06/04/17 Nitroglycerin 0.4 mg SL PRN PRN 06/04/17 Ondansetron [Zofran Odt] 4 mg PO Q8H PRN PRN #10 tab 06/04/17 Potassium Chloride [Klor-Con M20] 20 meq PO DAILY 06/04/17 Prednisone 5 mg PO DAILY 06/04/17 Zolpidem Tartrate 5 mg PO QHS PRN 06/04/17 Cefdinir [Omnicef [equiv]] 300 mg PO Q12H #6 cap 06/11/17 The following prescriptions were given: Cefdinir [Omnicef [equiv]] 300 mg PO Q12H #6 cap Primary Care Physician: Velvet Pepe MD [Primary Care Provider] - Please follow up with your Primary Care Physician in: 2 weeks Please Follow Up With: Katie Yun NP-C When: As directed Please Follow Up With: Orthopedics When: As directed. Proposed Discharge Date: 06/11/17
--- NOTE | 2017-06-11 14:01 | PCM.DC.SUM ---
<Crispin Delgado - Last Filed: 06/11/17 14:01> Discharge Date and Diagnosis Date of Admission: 06/08/17 Date of Discharge: 06/11/17 - Primary Discharge Diagnosis Acute sepsis 2/2 Acute BL HCAP - suspect gram positive Acute on chrnoic hypoxic respiratory failure JOSE Borderline troponin elevation 2/2 sepsis COPD HTN RA, fibro CAD w/ prior NSTEMI - Secondary Discharge Diagnosis Chronic Problems NSTEMI (non-ST elevated myocardial infarction) (Chronic) Fibromyalgia (Chronic) Rheumatoid arthritis (Chronic) HTN (hypertension) (Chronic) COPD (chronic obstructive pulmonary disease) (Chronic) Bipolar disorder (Chronic) Hospital Course and Treatment Imaging Results: RAD/Chest 1 View (Portable) IMPRESSION: Bilateral pneumonia. Small right pleural effusion. Echo: Interpretation Summary Normal LV size. Left ventricular systolic function is normal. The estimated ejection fraction is 55 %. The left atrium is moderately enlarged. Moderate (2+) eccentric mitral valve insufficiency. Pulmonary artery systolic pressure is 39 mmHg. Compared to prior study, there is no significant change. Operations: None Procedures: 2-D Echocardiogram Summary of Care Provided: Physical exam on day of discharge: General: Resting comfortably NAD Psych: A/Ox3 normal affect HEENT: PEARRLA AT NC Neck: Supple NT CV: RRR no m/t/r/g/h Resp: CTA Abd: [id number] Soft NT no guarding or rigidity Ext: DP2+= no edema Skin: W/D normal turgor Lymph/Heme: No active bleeding or adenopathy Neuro: CN2-12 intact Hospital course: The patient is a 56 year old F who presented to the ER with chief complaint of SOB, cough, subjective fevers, and found to have BL pna on CXR. She recently had a right rotator cuff repair and was felt to have HCAP. She was placed on aztronam and vanc. She was maintained on Bipap initially as she was felt to have acute hypoxic respiratory failure. She also had JOSE and was given IV fluids. Troponin was borderline elevated on first of three troponins felt 2/2 to acute sepsis. She improved significantly on IV abx and IV fluids. She was able to be weaned to her baseline oxygen level. Her cultures did not exhibit significant growth. She was on chronic steroids for rheumatoid arthritis and fibromyalgia and on presentation she had elevated blood sugar. An A1c was checked and she is at risk of steroid-induced diabetes, this was low borderline prediabetes at 5.6. We advised a low calorie diet going forward for her. She was transitioned to rocephin and then to omnicef for discharge. She was discharged home in stable condition. Please follow up with your PCP, spanish speaking nanny, and orthopedic surgeon. This patient was seen by Crispin Delgado PA-C under the supervision of Doctor Rafy. [] Discharge Diet: Low fat/ Low Cholesterol, 1800 Calorie Control Diet, 2000 mg Sodium Diet Discharge Activity: Return to Normal Activity Home Medications: Medications to take at Discharge Albuterol IH (ProAir) [Proair Hfa] 2 puff INHALATION Q4H PRN PRN 07/26/14 Lisinopril [Zestril] 40 mg PO DAILY 07/26/14 Pregabalin [Lyrica] 200 mg PO TID 07/26/14 Albuterol IH (ProAir) [Proair Hfa] 1 puff INHALATION Q4H PRN PRN 03/21/15 Fluticasone 0.05% [Flonase Nasal [place]] 1 spray NASAL BID 03/21/15 Alprazolam [Xanax] 1 mg PO TID PRN 3 Days #8 tab 06/04/17 Amlodipine [Norvasc] 10 mg PO BID 06/04/17 Aspirin [Aspirin, Baby] 81 mg PO DAILY@0800 06/04/17 Atenolol [Tenormin (beta castro)] 50 mg PO DAILY 06/04/17 Atorvastatin Calcium 40 mg PO DAILY 06/04/17 Dexlansoprazole [Dexilant] 60 mg PO DAILY 06/04/17 Docusate Sodium [Colace] 100 mg PO BID PRN 06/04/17 Furosemide 40 mg PO DAILY 06/04/17 Ipratropium/Albuterol Respimat [Combivent Respimat Inhal [place]] 1 puff INHALATION 4X/DAY PRN PRN 06/04/17 Lactulose 30 ml PO QWEEK 06/04/17 Nitroglycerin 0.4 mg SL PRN PRN 06/04/17 Ondansetron [Zofran Odt] 4 mg PO Q8H PRN PRN #10 tab 06/04/17 Potassium Chloride [Klor-Con M20] 20 meq PO DAILY 06/04/17 Prednisone 5 mg PO DAILY 06/04/17 Zolpidem Tartrate 5 mg PO QHS PRN 06/04/17 Cefdinir [Omnicef [equiv]] 300 mg PO Q12H #6 cap 06/11/17 Following Prescrptions Were Given to Patient: Cefdinir [Omnicef [equiv]] 300 mg PO Q12H #6 cap Primary Care Physician: Velvet Pepe MD [Primary Care Provider] - Please follow up with your Primary Care Physician in: 2 weeks Please Follow Up With: Katie uYn, SHMUEL When: As directed Please Follow Up With: Orthopedics When: As directed. Medical Necessity - Tobacco Use Smoking Status: Former smoker Meaningful Use Info Meaningful Use Diagnoses (Choose all that apply): None applicable <RafySid - Last Filed: 06/11/17 14:36> Discharge Date and Diagnosis - Secondary Discharge Diagnosis Chronic Problems NSTEMI (non-ST elevated myocardial infarction) (Chronic) Fibromyalgia (Chronic) Rheumatoid arthritis (Chronic) HTN (hypertension) (Chronic) COPD (chronic obstructive pulmonary disease) (Chronic) Bipolar disorder (Chronic) Hospital Course and Treatment Summary of Care Provided: [] This patient was seen in conjunction with Crispin VEGA. I have independently interviewed and examined the patient and reviewed pertinent history, examination findings, laboratory and plan of management. I have reviewed the note and agree with the documented findings with the few additional points. In brief, patient is admitted for acute on chronic hypoxic respiratory failure secondary to bilateral HCAP. Urine culture showing staph hemolyticus. Patient is not allergic to penicillin discussed with the pharmacist. Antibiotic changed to Rocephin and discharged on cefdinir. Discussed with the spanish speaking nanny, Dr. Willams and suggested follow-up in pulmonary clinic in 2 weeks to be seen by nurse practitioner and in 4 weeks by himself. Patient has all inhalers and nebulization, DuoNeb medication at home. I have discussed my assessment with Crispin VEGA and orders have been reviewed. Total time spent, exact 35 minutes on discharge meds reconciliation, examination, review of imaging and blood test and discussion with the patient on follow-up instructions. Code Visit Inpatient E&M: 38070 Disch Hosp
--- NOTE | 2017-06-11 14:10 | DS.PCM_ITS ---
<Crispin Delgado - Last Filed: 06/11/17 14:01> Discharge Date and Diagnosis Date of Admission: 06/08/17 Date of Discharge: 06/11/17 - Primary Discharge Diagnosis Acute sepsis 2/2 Acute BL HCAP - suspect gram positive Acute on chrnoic hypoxic respiratory failure JOSE Borderline troponin elevation 2/2 sepsis COPD HTN RA, fibro CAD w/ prior NSTEMI - Secondary Discharge Diagnosis Chronic Problems NSTEMI (non-ST elevated myocardial infarction) (Chronic) Fibromyalgia (Chronic) Rheumatoid arthritis (Chronic) HTN (hypertension) (Chronic) COPD (chronic obstructive pulmonary disease) (Chronic) Bipolar disorder (Chronic) Hospital Course and Treatment Imaging Results: RAD/Chest 1 View (Portable) IMPRESSION: Bilateral pneumonia. Small right pleural effusion. Echo: Interpretation Summary Normal LV size. Left ventricular systolic function is normal. The estimated ejection fraction is 55 %. The left atrium is moderately enlarged. Moderate (2+) eccentric mitral valve insufficiency. Pulmonary artery systolic pressure is 39 mmHg. Compared to prior study, there is no significant change. Operations: None Procedures: 2-D Echocardiogram Summary of Care Provided: Physical exam on day of discharge: General: Resting comfortably NAD Psych: A/Ox3 normal affect HEENT: PEARRLA AT NC Neck: Supple NT CV: RRR no m/t/r/g/h Resp: CTA Abd: [id number] Soft NT no guarding or rigidity Ext: DP2+= no edema Skin: W/D normal turgor Lymph/Heme: No active bleeding or adenopathy Neuro: CN2-12 intact Hospital course: The patient is a 56 year old F who presented to the ER with chief complaint of SOB, cough, subjective fevers, and found to have BL pna on CXR. She recently had a right rotator cuff repair and was felt to have HCAP. She was placed on aztronam and vanc. She was maintained on Bipap initially as she was felt to have acute hypoxic respiratory failure. She also had JOSE and was given IV fluids. Troponin was borderline elevated on first of three troponins felt 2/2 to acute sepsis. She improved significantly on IV abx and IV fluids. She was able to be weaned to her baseline oxygen level. Her cultures did not exhibit significant growth. She was on chronic steroids for rheumatoid arthritis and fibromyalgia and on presentation she had elevated blood sugar. An A1c was checked and she is at risk of steroid-induced diabetes, this was low borderline prediabetes at 5.6. We advised a low calorie diet going forward for her. She was transitioned to rocephin and then to omnicef for discharge. She was discharged home in stable condition. Please follow up with your PCP, manufacturing technology analyst, and orthopedic surgeon. This patient was seen by Crispin Delgado PA-C under the supervision of Doctor Rafy. [] Discharge Diet: Low fat/ Low Cholesterol, 1800 Calorie Control Diet, 2000 mg Sodium Diet Discharge Activity: Return to Normal Activity Home Medications: Medications to take at Discharge Albuterol IH (ProAir) [Proair Hfa] 2 puff INHALATION Q4H PRN PRN 07/26/14 Lisinopril [Zestril] 40 mg PO DAILY 07/26/14 Pregabalin [Lyrica] 200 mg PO TID 07/26/14 Albuterol IH (ProAir) [Proair Hfa] 1 puff INHALATION Q4H PRN PRN 03/21/15 Fluticasone 0.05% [Flonase Nasal [place]] 1 spray NASAL BID 03/21/15 Alprazolam [Xanax] 1 mg PO TID PRN 3 Days #8 tab 06/04/17 Amlodipine [Norvasc] 10 mg PO BID 06/04/17 Aspirin [Aspirin, Baby] 81 mg PO DAILY@0800 06/04/17 Atenolol [Tenormin (beta castro)] 50 mg PO DAILY 06/04/17 Atorvastatin Calcium 40 mg PO DAILY 06/04/17 Dexlansoprazole [Dexilant] 60 mg PO DAILY 06/04/17 Docusate Sodium [Colace] 100 mg PO BID PRN 06/04/17 Furosemide 40 mg PO DAILY 06/04/17 Ipratropium/Albuterol Respimat [Combivent Respimat Inhal [place]] 1 puff INHALATION 4X/DAY PRN PRN 06/04/17 Lactulose 30 ml PO QWEEK 06/04/17 Nitroglycerin 0.4 mg SL PRN PRN 06/04/17 Ondansetron [Zofran Odt] 4 mg PO Q8H PRN PRN #10 tab 06/04/17 Potassium Chloride [Klor-Con M20] 20 meq PO DAILY 06/04/17 Prednisone 5 mg PO DAILY 06/04/17 Zolpidem Tartrate 5 mg PO QHS PRN 06/04/17 Cefdinir [Omnicef [equiv]] 300 mg PO Q12H #6 cap 06/11/17 Following Prescrptions Were Given to Patient: Cefdinir [Omnicef [equiv]] 300 mg PO Q12H #6 cap Primary Care Physician: Velvet Pepe MD [Primary Care Provider] - Please follow up with your Primary Care Physician in: 2 weeks Please Follow Up With: Katie Yun, SHMUEL When: As directed Please Follow Up With: Orthopedics When: As directed. Medical Necessity - Tobacco Use Smoking Status: Former smoker Meaningful Use Info Meaningful Use Diagnoses (Choose all that apply): None applicable <RafySid - Last Filed: 06/11/17 14:36> Discharge Date and Diagnosis - Secondary Discharge Diagnosis Chronic Problems NSTEMI (non-ST elevated myocardial infarction) (Chronic) Fibromyalgia (Chronic) Rheumatoid arthritis (Chronic) HTN (hypertension) (Chronic) COPD (chronic obstructive pulmonary disease) (Chronic) Bipolar disorder (Chronic) Hospital Course and Treatment Summary of Care Provided: [] This patient was seen in conjunction with Crispin VEGA. I have independently interviewed and examined the patient and reviewed pertinent history, examination findings, laboratory and plan of management. I have reviewed the note and agree with the documented findings with the few additional points. In brief, patient is admitted for acute on chronic hypoxic respiratory failure secondary to bilateral HCAP. Urine culture showing staph hemolyticus. Patient is not allergic to penicillin discussed with the pharmacist. Antibiotic changed to Rocephin and discharged on cefdinir. Discussed with the manufacturing technology analyst, Dr. Willams and suggested follow-up in pulmonary clinic in 2 weeks to be seen by nurse practitioner and in 4 weeks by himself. Patient has all inhalers and nebulization, DuoNeb medication at home. I have discussed my assessment with Crispin VEGA and orders have been reviewed. Total time spent, exact 35 minutes on discharge meds reconciliation, examination , review of imaging and blood test and discussion with the patient on follow-up instructions. Code Visit Inpatient E&M: 77810 Disch Hosp
--- NOTE | 2017-06-13 15:31 | CASEMGMT ---
RICARDO SYED DISCHARGE F/U PHONE CALL LACNicolette: 15 STRATA: 4 CALL DATE: 06/13/17 DISCHARGE DATE: 06/11/17 TIME OF CALL: 1528 DURATION: 4 MINUTES ADM DX: HEALTHCARE ACQUIRED PNEUMONIA PT STATES HAS BEING 'DOING GOOD' SINCE DISCHARGE, JUST 'TIRED.' PT STATES SHE HAS NO QUESTIONS REGARDING DISCHARGE INSTRUCTIONS AT THIS TIME. PT STATES THAT SHE HAS BEEN TAKING HER ANTIBIOTIC, OMNICEF, AND STATES NO QUESTIONS REGARDING MED AT THIS TIME. PT STATES SHE STILL C/O SOME ARM PAIN S/P SURGERY AND THAT WE HAD BEEN GIVING HER PAIN MEDS WHILE SHE WAS ADMITTED AND SHE FEELS SHE REALLY NEEDS SOME AT HOME WELL. ADVISED PT TO F/U WITH SURGEON FOR ANY FURTHER PAIN MEDS AND PT STATES THAT SHE TRIED TO BUT HE TOLD HER TO JUST TAKE TYLENOL. PT VERIFIED F/U APPOINTMENTS SCHEDULED WITH PCP AND SURGEON. PT STATES NO CONCERNS WITH HER VISIT OR SUGGESTIONS AT THIS TIME. PT STATES EVERYONE 'TREATED HER REAL GOOD.' PT VOICES NO FURTHER QUESTIONS/CONCERNS AT THIS TIME. PT PROVIDED WITH THIS RICARDO SYED'S DIRECT PHONE NUMBER AT THIS TIME FOR ANY FURTHER QUESTIONS/CONCERNS. SSTATEN RICARDO SYED
== END 2017-06-11 15:20 | disposition home or self-care (01) | DRG 871 ==
LOC: ED 02:44 → PCU 03:41
PROVIDERS: Internal Medicine; Physician Assistant; Admitting Provider Hospitalist; Emergency Provider Emergency Medicine; Family Provider Internal Medicine; PCP Internal Medicine; Visit Provider Internal Medicine
DX: A41.9 Sepsis, unspecified organism (principal); J96.21 Acute and chronic respiratory failure with hypoxia; J15.9 Unspecified bacterial pneumonia; J44.0 Chronic obstructive pulmonary disease with (acute) lower respiratory infection; N17.9 Acute kidney failure, unspecified; E86.0 Dehydration; I95.9 Hypotension, unspecified; I25.10 Atherosclerotic heart disease of native coronary artery without angina pectoris; I10 Essential (primary) hypertension; M06.9 Rheumatoid arthritis, unspecified; R73.9 Hyperglycemia, unspecified; R73.03 Prediabetes; T38.0X5A Adverse effect of glucocorticoids and synthetic analogues, initial encounter; Y92.9 Unspecified place or not applicable; M79.7 Fibromyalgia; F31.9 Bipolar disorder, unspecified; G47.33 Obstructive sleep apnea (adult) (pediatric); E66.9 Obesity, unspecified; Z68.36 Body mass index [BMI] 36.0-36.9, adult; Z71.3 Dietary counseling and surveillance; Z99.81 Dependence on supplemental oxygen; Z79.82 Long term (current) use of aspirin; Z79.52 Long term (current) use of systemic steroids; Z79.899 Other long term (current) drug therapy; I25.2 Old myocardial infarction; Z87.01 Personal history of pneumonia (recurrent); Z87.891 Personal history of nicotine dependence
CPT/HCPCS: 36415; 36600; 71045; 80048; 80202; 81002; 82803; 82962; 83036; 83605; 84484; 85025; 85027; 87040; 87070; 87077; 87086; 87088; 87186; 87205; 87449; 87633; 93005; 93306; 94002; 94640; 94667; 94668; 97116; 97162; 97166; 97530; 97535; 97802; 99285; J7030; J7040; J7050; Q9957; A4216; J2405

== ENCOUNTER 2017-07-15 17:50 | Emergency (ER) | payer MEDICARE, SELFPAY ==
[2017-07-15 17:52] VITALS: BP 189/106; PULSE 100; RESP 18; TEMP 36.3; O2SAT 97; BMI 37.8
--- NOTE | 2017-07-15 18:14 | US_ITS ---
US Venous Duplex LE Unilat / Limited INDICATION: LT LEG SWELLING COMPARISON: None TECHNIQUE: Ultrasonographic grayscale, Doppler and duplex investigation of the venous structures of the left lower extremity. Doppler waveform analysis. FINDINGS: There is normal flow, compressibility, and augmentation without evidence of thrombus throughout the left common femoral vein, proximal, mid, and distal left femoral vein, and the left popliteal vein, and posterior tibial vein US/Venous Duplex Imag/Limited/Uni IMPRESSION: Negative examination. No evidence of DVT at the left lower extremity. at 1845 Reported and signed by: Cyndie Lucero MD Electronically Signed: Cyndie Lucero MD at 18:43 EDT Tel , Service support ,
--- NOTE | 2017-07-15 19:03 | ED.DCSUM_ITS ---
- ER Visit Summary Date of Service: 07/15/17 Chief Complaint: Presents from urgent care to evaluate for DVT History of Present Illness: The patient is a 56 F who presents because of increased swelling and pain left calf. He was recently hospitalized for bilateral community acquired pneumonia. She denies fever, chills night sweats. She denies chest pain of any type. She denies shortness of breath, dyspnea on exertion, orthopnea PND. She does complain of pain left calf. There is no history of trauma. She denies any symptoms of claudication. She denies any radicular pain. Denies back pain. She denies any bowel bladder dysfunction. She denies any urologic symptoms. Physical Examination: Blood pressure is elevated 189/106. BMI is 37.8. There is pain along the distribution of deep venous system left calf. The left leg is more swollen than the right. There is evidence of lymphedema bilaterally. Heart is regular without murmur, gallop or rub. S1 and S2 are normal. Lungs are clear to auscultation with good movement of air bilaterally. Test Results: Venous duplex study of the left leg is negative for blood clots. Emergency Department Course and Treatment: Well score for DVT is 3, which is high probability for DVT. Therefore, a venous duplex study was ordered. Treatment Plan: Patient does have bilateral lymphedema with asymmetry. Recommend diuresis and follow-up with PCP l Disposition: Discharged home with appropriate home-going instructions Impression: Left lower extremity pain with lymphedema without evidence of DVT This note was generated with [employer]verted Edge dictation software. It may contain incorrect words, spelling, and punctuation that were not noted in review of the chart prior to signing ED Disposition - Plan for ED Patient: Disposition: Home or Assisted Living Chief Complaint: Lower Extremity Injury Instructions: ED Lymphedema Prescriptions: Furosemide [Lasix] 20 mg PO DAILY #14 tab Referrals: Velvet Pepe MD [Primary Care Provider] - 1 Week Additional Instructions: Your prescription was electronically transmitted to [facility] pharmacy.
== END 2017-07-15 19:14 | disposition home or self-care (01) ==
PROVIDERS: Emergency Provider Emergency Medicine; Family Provider Internal Medicine; PCP Internal Medicine
DX: M79.605 Pain in left leg (principal); I89.0 Lymphedema, not elsewhere classified; J44.9 Chronic obstructive pulmonary disease, unspecified; I10 Essential (primary) hypertension; E66.9 Obesity, unspecified; Z68.37 Body mass index [BMI] 37.0-37.9, adult; Z79.82 Long term (current) use of aspirin; Z79.52 Long term (current) use of systemic steroids; Z79.899 Other long term (current) drug therapy; I25.2 Old myocardial infarction; Z87.01 Personal history of pneumonia (recurrent); Z87.891 Personal history of nicotine dependence
CPT/HCPCS: 93971; 99282

== ENCOUNTER 2018-05-14 12:03 | Emergency (ER) | payer MEDICARE, SELFPAY ==
[2018-05-14 12:05] VITALS: BP 164/103; PULSE 83; RESP 16; TEMP 36.1; O2SAT 100; BMI 27.1
--- NOTE | 2018-05-14 12:12 | RAD_ITS ---
STUDY: X-RAY CHEST REASON FOR EXAM: Female, 57 years old. Productive cough. Wheezing. TECHNIQUE: AP and lateral views of the chest. COMPARISON: Comparison is made with prior examination dated June 08, 2017. FINDINGS: EKG electrodes are seen. The lungs are clear and expanded. There is no demonstrated pleural abnormality. Mild increased linear markings in the lingular segment of the left upper lobe suggestive of a atelectasis. Calcified bilateral hilar lymph nodes. Normal visualized pulmonary arteries. Normal visualized aortic arch and descending thoracic aorta. Normal visualized thoracic spine. Normal visualized ribs, clavicles, and shoulders. There is no demonstrated abnormality of the visualized soft tissue structures of the upper abdomen. RAD/Chest PA and Lateral IMPRESSION: Mild increased linear markings in the lingular segment of the left upper lobe suggestive of linear atelectasis. Electronically Signed: Bebeto Mariscal, at 13:19 EDT , Service support ,
--- NOTE | 2018-05-14 12:18 | ED.DCSUM_ITS ---
History of Present Illness Chief Complaint: Cold Sx Informant: Patient, Family Onset: Days - Onset 4 days ago Timing: Continuous Quality: Productive cough, wheezing and shortness of breath Location: Home Current Severity: Moderate Maximum Severity: Moderate Worsened by: Activity Relieved by: Nothing Associated Symptoms: Runny nose Narrative: Patient is a middle-aged woman who was a smoker. She quit in 1994. She has history of COPD. She and her significant other report flulike symptoms started 4 days ago. She was not immunized for influenza this fall. She reports runny nose, productive cough of colored sputum. She is not a very good informant. History is supplemented by significant other. There is no history of PE or DVT. She has no history for VT E. Prior similar symptoms: Yes Recent Illness/Hospitalization: No - Past Medical History (1) Bipolar disorder Status: Chronic (2) COPD (chronic obstructive pulmonary disease) Status: Chronic (3) Fibromyalgia Status: Chronic (4) HTN (hypertension) Status: Chronic (5) NSTEMI (non-ST elevated myocardial infarction) Status: Chronic (6) Rheumatoid arthritis Status: Chronic Past Medical History - Allergies and Home Meds Allergies/Adverse Reactions: Allergies methotrexate Allergy (Verified 05/14/18 12:05) Other nadolol Allergy (Verified 05/14/18 12:05) Unknown baclofen Adverse Reaction (Verified 05/14/18 12:05) Other MOOD SWINGS lorazepam [From Ativan] Adverse Reaction (Verified 05/14/18 12:05) Nausea propranolol Adverse Reaction (Verified 05/14/18 12:05) Other COMBID Allergy (Uncoded 05/14/18 12:05) Unknown Primary Care Physician: Velvet Pepe MD [Primary Care Provider] - Prior records reviewed: Yes Surgical History: cataract, hysterectomy Lives: Spouse/ Significant Other, With Family Smoking Status: Former smoker Alcohol: None - Family History Maternal Family History: Reports: Cancer Paternal Family History: Reports: Cancer Review of Systems General: Reports: Malaise. Denies: Chills, Fever, Sweats Eyes: Denies: Visual changes - bilaterally, Blurred Vision - bilaterally, Diplopia ENT: Reports: Rhinorrhea. Denies: Bilateral ear pain, Sore throat Cardiovascular: Denies: Chest pain, Palpitations Respiratory: Reports: Dyspnea, Cough, Sputum, Dyspnea on exertion. Denies: Orthopnea, Paroxysmal nocturnal dyspnea Gastrointestinal: Denies: Abdominal pain, Nausea, Vomiting, Diarrhea, Melena, Hematochezia Genitourinary: Denies: Dysuria, Hematuria, Frequency Musculoskeletal: Denies: Myalgias, Arthralgias, Back pain, Extremity Pain Skin: Denies: Rash, Wounds Neurological: Reports: Weakness. Denies: Headache, Numbness Endocrine: Denies: Polyuria Hematologic: Denies: Easy bruising Physical Exam Vital Signs/Narrative: Vital Signs Temp Pulse Resp BP Pulse Ox 05/14/18 12:05 96.9 F L 83 16 164/103 H 100 Inital Vital Signs reviewed: Yes General: Well nourished, Well developed, Obese, Unkempt, No Acute Distress Head: Normocephalic, Atraumatic Eyes: Perrl, EOMI. Negative for: Pale conjunctiva, Scleral icterus ENT: Moist mucous membranes, TM's clear, Nasal congestion Neck: Supple, Nontender, No lymphadenopathy, No JVD Cardiovascular: Regular rate, Regular rhythm, No murmurs, Normal S1, Normal S2 Respiratory: No distress, Chest nontender, Wheezing, Decreased Air Movement Abdomen: Soft, Nontender, Nondistended, Normal bowel sounds, No masses. Negative for: Hepatomegaly, Splenomegaly, Mass, Pulsatile mass Back: Nontender Extremities: Nontender, No edema Skin: Normal color, No rash Neurological: Alert, Oriented x3, Cranial nerves II-XII grossly intact, Normal Strength, Normal Sensation, Normal Gait Diagnostic/Tx/Re-eval Chest X-Ray - ED: 2 View, Read by ED Physician, Unchanged, Normal, Heart, Bony Structures, No Acute Disease, Chronic Changes, - - Chronic changes noted. Pulmonary vessels are prominent. Infiltrate noted June 08, 2017 has resolved. - Rhythm Strip Rhythm Strip: Sinus Rhythm Rate: 82 Ectopy: None - Medical Decision Making With history of COPD and productive cough chest x-ray was obtained to evaluate for pneumonia. If there is an infiltrate will obtain blood work since her vital signs are within normal limits and she is not hypoxic. She was treated with 60 mg of prednisone p.o., DuoNeb and albuterol. Suspect exacerbation COPD secondary to viral upper respiratory infection. With no evidence of pneumonia and viral-like symptoms we will treat for ex acerbation of COPD secondary to viral upper respiratory infection. She was placed on a burst of prednisone 40 mg daily times 5 days. ED Disposition - Plan for ED Patient: Disposition: Home or Assisted Living Diagnosis: COPD with exacerbation, Bronchospasm with bronchitis, acute Instructions: ED COPD Flare Prescriptions: Prednisone [Deltasone] 40 mg PO DAILY #10 tablet Referrals: Velvet Pepe MD [Primary Care Provider] - 5-7 Days Additional Instructions: Your prescription was electronically transmitted to [facility] pharmacy your pharmacy of choice.
[2018-05-14 12:25] VITALS: O2SAT 100
[2018-05-14] MEDS: Albuterol 2.5 MG/3 ML VIAL.NEB. INHALATION ×3 (12:50→12:57)
[2018-05-14] MEDS: predniSONE 20 MG Tablet 60 MG PO (12:51)
[2018-05-14] MEDS: Ipratropium/Albuterol Sulfate 3 ML AMPUL.NEB INHALATION (12:57)
[2018-05-14 13:14] VITALS: BP 148/91; PULSE 72; RESP 19; O2SAT 100
== END 2018-05-14 13:16 | disposition home or self-care (01) ==
PROVIDERS: Emergency Provider Emergency Medicine; Family Provider Internal Medicine; PCP Internal Medicine
DX: J44.0 Chronic obstructive pulmonary disease with (acute) lower respiratory infection (principal); J44.1 Chronic obstructive pulmonary disease with (acute) exacerbation; J20.9 Acute bronchitis, unspecified; M06.9 Rheumatoid arthritis, unspecified; I10 Essential (primary) hypertension; M79.7 Fibromyalgia; F31.9 Bipolar disorder, unspecified; E66.9 Obesity, unspecified; Z79.82 Long term (current) use of aspirin; Z79.52 Long term (current) use of systemic steroids; Z79.899 Other long term (current) drug therapy; I25.2 Old myocardial infarction; Z87.891 Personal history of nicotine dependence
CPT/HCPCS: 71046; 99284

== ENCOUNTER 2018-07-22 01:17 | Emergency (ER) | payer MEDICARE, SELFPAY ==
[2018-07-22] VITALS (7 sets, daily range): BP systolic 131–193; BP diastolic 79–111; PULSE 72–118; RESP 13–20; TEMP 37.2; O2SAT 95–96; BMI 33.3
--- NOTE | 2018-07-22 01:30 | CT_ITS ---
STUDY: CT BRAIN WITHOUT CONTRAST REASON FOR EXAM: Female, 57 years old. Head trauma RADIATION DOSAGE (If Supplied By Facility): CTDIvol = ( 44.99 ) mGy, DLP = ( 829.85 ) mGycm TECHNIQUE: Transaxial CT imaging of the brain was performed without administration of intravenous contrast material. Individualized dose optimization techniques were used for this CT. COMPARISON: No relevant priors. FINDINGS: Normal soft tissue structures. Normal calvarium. There is mild cerebral atrophy with widening of the extra-axial spaces and ventricular dilatation. Normal white matter tracts of the cerebral hemispheres. Normal basal ganglia and thalami. Normal brainstem. Normal cerebellum. There is no intracranial hemorrhage. There are no findings of an acute ischemic infarction. There is fluid layering in the right side maxillary sinus. Fracture line is not identified. CT/Brain/Head without Contrast IMPRESSION: Mild atrophy no evidence of acute hemorrhage or infarct or edema. Air-fluid level right maxillary sinus which may represent infection. No visualized superficial soft tissue edema or acute fracture. Electronically Signed: Leyda Sanz MD at 2:07 EDT Tel , Service support ,
[2018-07-22] MEDS: Diphth,Pertuss(Acell),Tet Vac 0.5 ML Vial IM (01:36)
[2018-07-22 01:45] LABS: Absolute Lymphocyte Count 1.66 X10^3/ul (0.83-4.51); Absolute Neutrophil Count 7.3 X10^3/uL (2.0-7.7); Basophil# 0.02 X10^3/uL; Basophil% 0.2 % (0-1); Eosinophil# 0.28 X10^3/uL; Eosinophils% 2.8 % (0-5); Hematocrit 39.3 % (37-47); Hemoglobin 13.3 g/dl (12.0-15.0); Lymphocyte # 1.66 X10^3/ul (4.0); Lymphocyte % 16.6 % (19-41); Mean Corp Hgb Conc 33.8 g/gl (32-36); Mean Corpuscular Hgb 30.4 pg (27.0-32.0); Mean Corpuscular Volume 89.7 fL (81-99); Mean Platelet Vol. 10.9 fl (6.2-12.0); Monocyte# 0.75 X10^3/uL; Monocyte% 7.5 % (0-10); Neutrophil # 7.29 X10^3/uL (2.7-7.7); Neutrophil % 72.8 % (47-70); POSITIVE COUNT NO; POSITIVE DIFFERENTIAL NO; POSITIVE MORPHOLOGY NO; Platelet Count 228 K/mm3 (150-450); RBC Distribution Width SD 44.7 fl (35.1-43.9); Red Blood Count 4.38 M/mm3 (4.2-5.4)
[2018-07-22 02:00] LABS: ALB/GLOB Ratio 1.1 RATIO (0.9-2.4); AST(SGOT) 25 U/L (15-37); Alanine Aminotransfer ALT/SGPT 28 U/L (13-56); Albumin, Serum 3.8 g/dL (3.2-5.0); Alkaline Phosphatase 117 U/L (45-117); Anion Gap 9 (5-15); BUN 9 mg/dL (7-18); BUN/Creat Ratio 9.1 RATIO (10-20); Calcium,Total 8.6 mg/dL (8.5-10.1); Chloride 112 mmol/L (98-107); Creatinine, Serum 0.98 mg/dL (0.55-1.02); EST Glomerular Filtration Rate 62 mL/min (>60); Est Glom Filt Rate - Afr Amer 75 mL/min (>60); Estimated Creatinine Clearance 47.79 ml/min; Globulin 3.6 g/dL (2.2-4.2); Glucose 156 mg/dL (74-106); Protein, Total 7.4 g/dL (6.4-8.2); Sodium Level 146 mmol/L (136-145)
[2018-07-22] MEDS: Ziprasidone IM 20 MG/ML VIAL 10 MG IM (02:21)
[2018-07-22 04:54] LABS: Bacteria 0 SEEN /hpf (None Seen); Color, Urine Yellow (Yellow); Glucose, Dipstick Normal (Normal); Ketone-Dipstick 50 mg/dl (Negative); Leukocyte Esterase-Dipstick 25 /ul (Negative); Nitrite-Dipstick Negative (Negative); Occult Blood-Urine Negative /ul (Negative); Protein-Dipstick Negative (Negative); Red Blood Cells-Urine 0 SEEN /hpf (0-5); Specific Gravity, Urine 1.025 (1.002-1.030); Squamous Epithelial Cells - UA 0 SEEN /hpf (5-10); Urine Bilirubin Dipstick Negative (Negative); Urine Clarity Clear (Clear); Urine Urobilinogen Normal (Normal); White Blood Cells 0 SEEN /hpf (0-5)
[2018-07-22 04:57] LABS: Mucous, Urine 2+ /hpf (<or=2+)
[2018-07-22 05:00] LABS: Amphetamine Urine VISTA POSITIVE (<1000 ng/mL); Barbiturate Urine VISTA NEGATIVE (< 200 ng/mL); Benzodiazepine Urine VISTA NEGATIVE (< 200 ng/mL); Cocaine Urine VISTA NEGATIVE (< 300 ng/mL); Ecstacy Urine VISTA POSITIVE (< 500 ng/mL); Methadone Urine VISTA NEGATIVE (< 300 ng/mL); PCP Urine VISTA NEGATIVE (< 25 ng/mL); THC Urine VISTA POSITIVE (< 50 ng/mL); Vista UDS pH Range 6
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
--- NOTE | 2018-07-22 05:18 | ED.DEP ---
ED Disposition - Plan for ED Patient: Instructions: Understanding Methamphetamine Abuse and Addiction, ED Potassium Deficiency Referrals: Velvet Pepe MD [Primary Care Provider] - Additional Instructions: Follow up with your doctor to recheck and treat your potassium levels. Return to the ER if you are unsafe, unable to care for yourself, or having feelings like you want to hurt yourself or others.
== END 2018-07-22 09:42 | disposition home or self-care (01) ==
PROVIDERS: Emergency Provider Emergency Medicine; Family Provider Internal Medicine; PCP Internal Medicine
DX: S01.01XA Laceration without foreign body of scalp, initial encounter (principal); W19.XXXA Unspecified fall, initial encounter; W22.03XA Walked into furniture, initial encounter; Y93.9 Activity, unspecified; Y92.9 Unspecified place or not applicable; Y99.9 Unspecified external cause status; E87.6 Hypokalemia; R45.1 Restlessness and agitation; I10 Essential (primary) hypertension; J44.9 Chronic obstructive pulmonary disease, unspecified; M79.7 Fibromyalgia; Z79.82 Long term (current) use of aspirin; Z79.52 Long term (current) use of systemic steroids; Z79.899 Other long term (current) drug therapy; I25.2 Old myocardial infarction; Z72.0 Tobacco use
CPT/HCPCS: 12001; 70450; 80053; 80307; 80320; 81001; 85025; 90715; 96372; 99285; P9612; G0480; J3486

== ENCOUNTER 2022-10-09 09:21 | Emergency (ER) | payer MEDICARE, MEDICAID, SELFPAY ==
[2022-10-09] VITALS (13 sets, daily range): BP systolic 126–165; BP diastolic 88–114; PULSE 70–97; RESP 14–24; TEMP 36.6–36.7; O2SAT 96–99; BMI 20.9
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
[2022-10-09 10:08] LABS: Absolute Lymphocyte Count 1.24 X10^3/uL (0.83-4.51); Absolute Neutrophil Count 2.5 X10^3/uL (2.0-7.7); Basophil# 0.02 X10^3/uL; Basophil% 0.5 % (0-1); Eosinophil# 0.06 X10^3/uL; Eosinophils% 1.5 % (0-5); Hematocrit 41.7 % (37-47); Hemoglobin 13.4 g/dL (12.0-15.0); Lymphocyte # 1.24 X10^3/ul (0.83-4.51); Lymphocyte % 30.1 % (19-41); Mean Corp Hgb Conc 32.1 g/dL (32-36); Mean Corpuscular Hgb 29.3 pg (27.0-32.0); Mean Platelet Vol. 11.2 fl (6.2-12.0); Monocyte# 0.31 X10^3/uL; Monocyte% 7.5 % (0-10); NRBC Flagged by Analyzer 0 % (0-5); Neutrophil # 2.48 X10^3/uL (2.7-7.7); Neutrophil % 60.2 % (47-70); Platelet Count 148 K/mm3 (150-450); RBC Distribution Width CV 13.3 % (11.6-14.6); RBC Distribution Width SD 44.3 fl (35.1-43.9); Red Blood Count 4.58 M/mm3 (4.2-5.4); White Blood Count 4.1 K/mm3 (4.4-11.0)
[2022-10-09 10:22] LABS: Anion Gap 5 (5-15); BUN 12 mg/dL (7-18); BUN/Creat Ratio 13.5 RATIO (10-20); Calcium,Total 8.4 mg/dL (8.5-10.1); Chloride 108 mmol/L (98-107); Creatinine, Serum 0.89 mg/dL (0.55-1.02); EST Glomerular Filtration Rate 69 mL/min (>60); Est Glom Filt Rate - Afr Amer 83 mL/min (>60); Glucose 101 mg/dL (74-106); Potassium 3.2 mmol/L (3.5-5.1); Sodium Level 144 mmol/L (136-145)
[2022-10-09 10:37] LABS: Alcohol, Blood (Medical)-Serum < 3.0 mg/dL
[2022-10-09 11:54] LABS: Bacteria 0 SEEN /hpf (None Seen); Mucous, Urine 0 SEEN /hpf (<or=2+)
[2022-10-09 12:09] LABS: Color, Urine Yellow (Yellow); Glucose, Dipstick Normal (Normal); Ketone-Dipstick Negative (Negative); Leukocyte Esterase-Dipstick 100 /ul (Negative); Nitrite-Dipstick Negative (Negative); Occult Blood-Urine Negative /ul (Negative); Protein-Dipstick 15 mg/dl (Negative); Urine Bilirubin Dipstick Negative (Negative); Urine Clarity Sl. Cloudy (Clear); Urine Urobilinogen 4 mg/dl (Normal)
[2022-10-09 12:19] LABS: Red Blood Cells-Urine 0-5 SEEN /hpf (0-5); Squamous Epithelial Cells - UA 0-5 SEEN /hpf (5-10); White Blood Cells 0-5 SEEN /hpf (0-5)
[2022-10-09 12:37] LABS: Amphetamine Urine VISTA NEGATIVE (<1000 ng/mL); Barbiturate Urine VISTA NEGATIVE (< 200 ng/mL); Benzodiazepine Urine VISTA NEGATIVE (< 200 ng/mL); Cocaine Urine VISTA NEGATIVE (< 300 ng/mL); Ecstacy Urine VISTA NEGATIVE (< 500 ng/mL); Methadone Urine VISTA NEGATIVE (< 300 ng/mL); PCP Urine VISTA NEGATIVE (< 25 ng/mL); THC Urine VISTA POSITIVE (< 50 ng/mL); Vista UDS pH Range 7
[2022-10-09] MEDS: Acetaminophen 500 MG Tablet 1000 MG PO (14:19)
[2022-10-09] MEDS: Nitrofurantoin Macrocrystals 100 MG Capsule PO (14:19)
[2022-10-09] MEDS: Potassium Chloride Oral Tablet 20 MEQ 40 MEQ PO (14:20)
[2022-10-09] MEDS: LORazepam 1 MG Tablet PO (14:57)
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
--- NOTE | 2022-10-09 17:09 | ED.RN ---
PATIENTS S.O VISITING. PT GIVEN DINNER TRAY. S.O, ELIAN HAD QUESTIONS REGARDING PATIENTS CARE. THIS RN AND RICARDO BOLANOS ENTERED PATIENTS ROOM WITH PPE. MYSELF AND CICI EXPLAINED TO ELIAN SHE IS PINKED SLIPPED AND CANNOT LEAVE THE FACILITY VOLUNTARILY. ELIAN REQUESTING TO SPEAK TO DR. HERMAN REGARDING REASON FOR PINK SLIP. DR. HERMAN NOTIFIED. DR. HERMAN AT BEDSIDE EXPLAINING TO ELIAN REASON FOR PINK SLIP AND HOW IF HE WOULD TAKE HER HOME, LAW ENFORCEMENT WOULD BE LOOKING FOR HIM AND CHARGES MAY BE PRESSED IF NECESSARY. PT MOVED TO ROOM 4 TO KEEP CLOSER TO NURSES STATION. PTS CLOTHING AND JEWELRY REMOVED FROM PATIENT. ELIAN HAS PT JEWELRY HE WILL TAKE HOME WITH HIM. ELIAN STATES IS THIS NECESSARY TO TAKE ALL HER STUFF? THIS MEANS YOU'RE TAKING HER TO THE [facility]CH [facility]. I'VE BEEN THROUGH THIS BEFORE. RN EXPLAINED SHE CANNOT GO ANYWHERE AT THIS TIME DUE TO BEING POSITIVE FOR COVID BUT THE PLAN IS TO GET HER HELP FOR HER MENTAL HEALTH. PT DOES HAVE PHONE WITH HER AT BEDSIDE. PT CARE REPORT GIVEN TO RICARDO HYDE
--- NOTE | 2022-10-09 18:46 | ED.RN ---
SIG OTHER TOOK ALL OF PT BELONGINGS HOME EXCEPT FOR PHONE W/PERMISSION FROM PT.
[2022-10-10] VITALS (9 sets, daily range): BP systolic 120–148; BP diastolic 76–80; PULSE 53–76; RESP 14–16; TEMP 36.4; O2SAT 98–100
--- NOTE | 2022-10-10 01:42 | ED.RN ---
[facility] has been denied at [facility] due to [facility]
[2022-10-10] MEDS: Nitrofurantoin Macrocrystals 100 MG Capsule PO (07:44)
[2022-10-10] MEDS: Lisinopril 40 MG Tablet PO (07:44)
[2022-10-10] MEDS: Meloxicam 7.5 MG Tablet PO (07:45)
[2022-10-10] MEDS: Pregabalin 50 MG Capsule 200 MG PO ×2 (07:46→14:21)
[2022-10-10] MEDS: Ziprasidone IM 20 MG/ML VIAL IM (09:24)
--- NOTE | 2022-10-10 10:47 | ED.RN ---
S/O NAME ELIAN- PHONE NUMBER [phone]
--- NOTE | 2022-10-10 10:51 | CM.ED ---
Addendum entered by Meaghan Thornton 10/10/22 14:11: Patient accepted to [facility] by MD [place], [address], [address] [phone]. [facility] requesting patient comes with a mask on. HERNANDO updated care team. Plan: [facility] Addendum entered by Meaghan Thornton 10/10/22 11:39: [facility] intake staff requesting pink slip, EKG and facesheet. HERNANDO faxed requested items. Plan: pending at [facility] Original Note: Social Work SW contacted [facility] Crisis to inquire about progress towards placement for patient. Bola reports [facility] states they can accept Covid positive patients and would need documentation regarding patient's current symptoms. [facility] Crisis waiting for another [facility] Crisis staff to send referral. [facility] HERNANDO to complete. HERNANDO contacted [facility] to confirm [facility] ability to [facility] but provided fax number for referral to be sent. HERNANDO faxed referral. Plan: referral pending at [facility]
--- NOTE | 2022-10-10 11:21 | EKG12_ITS ---
Test Reason : Blood Pressure : / mmHG Vent. Rate : 072 BPM Atrial Rate : 073 BPM P-R Int : 098 ms QRS Dur : 062 ms QT Int : 374 ms P-R-T Axes : 000 060 077 degrees QTc Int : 409 ms Sinus rhythm with sinus arrhythmia with short ID Nonspecific T wave abnormality Abnormal ECG Confirmed by DEIDRA COOK, ALIYAH ([id number]), editor & co founder NELSON RICKS ([id number]) on 10/15/2022 8:13:56 AM Referred By: Lukasz Rueda Confirmed By:KINGSTON GAY MD
--- NOTE | 2022-10-10 14:11 | NURSING ---
CALLED [facility], ETA IS 2 HOURS
--- NOTE | 2022-10-10 17:15 | NURSING ---
1625 CALLED [facility], ETA IS 5 MIN
== END 2022-10-10 17:45 ==
PROVIDERS: Emergency Provider Emergency Medicine; PCP Internal Medicine; Referring Provider Emergency Medicine; Visit Provider Emergency Medicine
DX: U07.1 COVID-19 (principal); F31.9 Bipolar disorder, unspecified; N39.0 Urinary tract infection, site not specified; E87.6 Hypokalemia; F17.210 Nicotine dependence, cigarettes, uncomplicated; Z91.199 Patient's noncompliance with other medical treatment and regimen due to unspecified reason
CPT/HCPCS: 80048; 80307; 81001; 82077; 85025; 87635; 87811; 93005; 99285; J3486

== ENCOUNTER 2022-11-14 10:46 | Emergency (ER) | payer MEDICARE, MEDICAID, SELFPAY ==
[2022-11-14 10:47] VITALS: BP 159/116; PULSE 95; RESP 20; TEMP 35.8; O2SAT 100
--- NOTE | 2022-11-14 11:03 | CT_ITS ---
STUDY: CT ABDOMEN AND PELVIS WITH CONTRAST REASON FOR EXAM: Female, 61 years old. Diffuse abdominal pain RADIATION DOSAGE (If Supplied By Facility): CTDIvol = ( 11.66 ) mGy, DLP = ( 319.42 ) mGycm TECHNIQUE: Transaxial images were obtained from the dome of the diaphragm to the symphysis pubis without oral contrast. IV 100mL Isovue-300 was administered. Sagittal and coronal images were reconstructed. Individualized dose optimization techniques were used for this CT. COMPARISON: 2011 FINDINGS: The visualized lung bases are unremarkable. Calcified coronary vessels noted Normal liver. Normal gallbladder and extrahepatic biliary system. Normal spleen. Normal pancreas. Normal bilateral adrenal glands. Normal right kidney. Normal left kidney. Normal visualized stomach. Normal small intestine. Normal colon. The appendix is visualized and appears normal. Appendix seen on coronal recon images 59 through 67 Normal abdominal aorta. Normal inferior vena cava. Normal retroperitoneum. Normal urinary bladder. Normal abdominal wall. Degenerative bony changes, there is an old healed left inferior pubic ramus fracture and nonspecific sclerotic focus in the left femoral head. CT/Abdomen/Pelvis W IV Cont ONLY IMPRESSION: No suspicious solid organ abnormality No free intraperitoneal fluid, air, or suspicious adenopathy. Normal appendix visualized Degenerative bony changes Electronically Signed: Alvino Fisher MD at 12:26 EDT ,
--- NOTE | 2022-11-14 11:27 | EDS_ITS ---
HPI HPI - GI History of Present Illness Chief Complaint: Abd Pain Narrative Narrative: 61-year-old female with right-sided abdominal pain. To be in pain but is unable to give me much history. She keeps mumbling and rolling around on the bed. Her states that she has been like this for a couple of days worse last evening. He states that she wants to vomit but does not. She has had some diarrhea. She has not had a fever. [facility] Medical History (Updated 11/14/22 @ 14:[address] Sánchez Bhatti, DO) Bipolar 1 disorder COPD (chronic obstructive pulmonary disease) Fibromyalgia Hypertension NSTEMI (non-ST elevated myocardial infarction) Rheumatoid arthritis Home Medications albuterol sulfate 90 mcg/actuation aerosol inhaler (ProAir HFA) 2 puff inhalation Q4H PRN PRN Sob &/Or Wheezing 07/26/14 [History Last Taken 06/06/17] lisinopril 40 mg tablet (Zestril) 40 mg PO DAILY bp 07/26/14 [History Last Taken 06/07/17] albuterol sulfate 90 mcg/actuation aerosol inhaler (ProAir HFA) 1 puff inhalation Q4H PRN PRN Dyspnea/Wheezing/Sob 03/21/15 [History Last Taken Unknown] nitroglycerin 0.4 mg sublingual tablet 0.4 mg sublingual PRN PRN CHEST PAIN 06/04/17 [History Last Taken Unknown] hyoscyamine sulfate 0.125 mg sublingual tablet 0.125 mg sublingual Q8H PRN dyspepsia 10/09/22 [History Last Taken Unknown] nitrofurantoin monohydrate/macrocrystals 100 mg capsule 100 mg PO Q12 #10 CAPSULES 10/09/22 [Rx Last Taken Unknown] amitriptyline 100 mg tablet 100 mg PO QHS 10/10/22 [History Last Taken Unknown] hydroxyzine HCl 25 mg tablet 50 mg PO Q8H PRN anxiety 10/10/22 [History Last Taken Unknown] lisinopril 20 mg tablet 40 mg PO DAILY 10/10/22 [History Last Taken Unknown] meloxicam 7.5 mg tablet 7.5 mg PO DAILY 10/10/22 [History Last Taken Unknown] pregabalin 200 mg capsule 200 mg PO Q8H 10/10/22 [History Last Taken Unknown] sumatriptan succinate 50 mg tablet 50 mg PO PRN PRN migraine headache 10/10/22 [History Last Taken Unknown] cefpodoxime 200 mg tablet 200 mg PO BID #24 tabs 11/14/22 [Rx Last Taken Unknown] hydrocodone-acetaminophen 5-325mg 5mg-325mg 1 tab PO Q6H PRN PRN Pain 3 days #10 TABLETS 11/14/22 [Rx Last Taken Unknown] ondansetron 4 mg disintegrating tablet 4 mg PO Q8H PRN PRN Nausea #14 tabs 11/14/22 [Rx Last Taken Unknown] Allergy/AdvReac Type Severity Reaction Status Date / Time methotrexate Allergy Other Verified 11/14/22 10:49 nadolol Allergy Unknown Verified 11/14/22 10:49 prochlorperazine Allergy PT UNABLE Verified 11/14/22 10:49 TO RESPOND-NEEDS F/U baclofen AdvReac Other Verified 10/09/22 09:22 lorazepam [From Ativan] AdvReac Nausea Verified 11/14/22 10:49 propranolol AdvReac Other Verified 11/14/22 10:49 Social History Smoking Status: Current every day smoker tobacco type: cigarettes ROS ROS ED Constitutional Constitutional ED: Denies chills, fever(s) or sweats Eyes Eyes: Denies blurry vision or change in vision ENT ENT ED: Denies ear pain or sore throat Cardiovascular Cardiovascular: Denies chest pain, palpitations or racing heartbeat Respiratory/Chest Respiratory/Chest: Denies cough, dyspnea or sputum Gastrointestinal Gastrointestinal: Reports abdominal pain, diarrhea and nausea; Denies constipation or vomiting Genitourinary Genitourinary ED: Denies dysuria, hematuria or urinary frequency Musculoskeletal Musculoskeletal: Denies arthralgias, myalgias or neck pain Integumentary Denies abscess, Abrasions or rash Neurologic Neurologic: Denies headache(s), paresthesias or weakness Psychiatric Psychiatric: Denies anxiety, depression, suicidal ideation or suicidal thoughts Endocrine Endocrinology: Denies polydipsia or polyuria EXAM Physical Exam Const Vital Signs: 11/14/22 10:47 Temperature 96.5 F L Temperature Source Temporal Pulse Rate 95 Respiratory Rate 20 H Blood Pressure 159/116 H Blood Pressure Mean 130 Pulse Ox 100 Oxygen Delivery Method Room Air Positive well nourished and unkempt General Appearance ED: unkempt and NAD; Negative for pallor HEENT Reports moist mucous membranes normocephalic and atraumatic Eyes PERRL and EOMs intact bilaterally Resp normal respiratory effort Auscultation: Negative for rales, rhonchi or wheezes Cardio regular rate and regular rhythm GI Palpation: tender RUQ Back/Spine General Back: CVA tenderness right Neuro CN's II-XII intact bilaterally Sensorium / Orientation: alert Psych Appearance: unkempt Skin no wounds General Skin Exam: Negative for jaundice or pallor MDM MDM MDM Narrative Medical decision making narrative: 61-year-old female with right-sided abdominal pain. She does have CVA tenderness on exam. She also has some right-sided upper abdominal tenderness but does not have a sreekanth Leon sign. Differential includes gastritis, cholecystitis, cholelithiasis, kidney stone, UTI, pyelonephritis, gastritis, colitis, diverticulitis pancreas. Patient medicated with morphine, Zofran. CBC will be obtained to assess white blood cell count, hemoglobin, platelets. BMP to assess renal function electrolytes. Liver panel assess liver. Lipase to assess for pancreatitis. Urinalysis to assess for UTI. BC does not show any leukocytosis. Hemoglobin slightly hemoconcentrated at 15.3. Platelets are normal. LFTs shows a mild elevation of alkaline phosphatase at 119 however the other LFTs are normal. Lipase negative. Potassium slightly low at 3.3. CT of the abdomen pelvis with IV contrast was obtained and shows no acute process. Urinalysis consistent with UTI. Given that she having flank pain I will treat her as pyelonephritis even though her CT does not show this. Patient on reevaluation feels much better. She is given a prescription for Edwards, Zofran, cefpodoxime. Return precautions were discussed. Urine culture was sent. Impression: 1. Acute right-sided pyelonephritis 2. Nausea/vomiting Lab Data Labs: Laboratory Results - last 24 hr 11/14/22 11:15 WBC 9.2 RBC 5.25 Hgb 15.3 H Hct 46.7 MCV 89.0 MCH 29.1 MCHC 32.8 RDW Std Deviation 41.5 RDW Coeff of Alejandra 12.7 Plt Count 234 MPV 10.3 Immature Gran % (Auto) 0.400 Neut % (Auto) 74.9 H Lymph % (Auto) 17.0 L [place] % (Auto) 6.4 Eos % (Auto) 0.9 Baso % (Auto) 0.4 Absolute Neuts (auto) 6.9 Absolute Lymphs (auto) 1.56 Nucleated RBC % 0 Sodium 139 Potassium 3.3 L Chloride 104 Carbon Dioxide 30.0 Anion Gap 5 BUN 14 Creatinine 1.01 Est GFR (MDRD) Af Amer 71 Est GFR (MDRD) Non-Af 59 L BUN/Creatinine Ratio 13.9 Glucose 125 H Calcium 10.2 H Total Bilirubin 0.80 Direct Bilirubin 0.24 AST 22 ALT 21 Alkaline Phosphatase 119 H Total Protein 8.9 H Albumin 4.4 Globulin 4.5 H Lipase 38 Urine Color Yellow Urine Clarity Clear Urine pH 6.0 Ur Specific [place] 1.015 Urine Protein 100 H Urine Glucose (UA) Normal Urine Ketones 15 H Urine Occult Blood 10 H Urine Nitrite Negative Urine Bilirubin Negative Urine Urobilinogen Normal Ur Leukocyte Esterase 500 H Urine RBC 0 SEEN Urine WBC 25-50 SEEN Ur Squamous Epith Cells 0 SEEN Urine Bacteria 0 SEEN Urine Mucus 0 SEEN Radiography Diagnostic Testing: Clinical Impression(s) from Imaging Studies Abdomen/Pelvis CT 11/14/22 11:03 IMPRESSION: No suspicious solid organ abnormality No free intraperitoneal fluid, air, or suspicious adenopathy. Normal appendix visualized Degenerative bony changes Electronically Signed: Alvino Fisher MD at 12:26 EDT Reading Location ID and State: [address] [place] [address] , Service support , Discharge Plan Triage Chief Complaint: Abd Pain ED Provider: Sánchez Bhatti Dx/Rx/DC Orders Instructions: ED Pyelonephritis, Female (Adult) Prescriptions: New cefpodoxime 200 mg tablet 200 mg PO BID Qty: 24 0RF Rx Instructions: must administer with a meal/food ondansetron 4 mg tablet,disintegrating 4 mg PO Q8H PRN PRN (Reason: Nausea) Qty: 14 0RF hydrocodone-acetaminophen 5-325 mg tablet 1 tab PO Q6H PRN PRN (Reason: Pain) 3 Days Qty: 10 0RF No Action albuterol sulfate [ProAir HFA] 1 PUFF inhaler 2 puff inhalation Q4H PRN PRN (Reason: Sob &/Or Wheezing) lisinopril [Zestril] 40 MG tablet 40 mg PO DAILY albuterol sulfate [ProAir HFA] 1 PUFF inhaler 1 puff inhalation Q4H PRN PRN (Reason: Dyspnea/Wheezing/Sob) nitroglycerin 0.4 MG tablet, sublingual 0.4 mg sublingual PRN PRN (Reason: CHEST PAIN) nitrofurantoin monohyd/m-cryst [nitrofurantoin monohyd/m-cryst] 100 mg capsule 100 mg PO Q12 Qty: 10 0RF hyoscyamine sulfate 0.125 mg tablet, sublingual 0.125 mg sublingual Q8H PRN (Reason: dyspepsia) Patient Comments: DISSOLVE 1 TABLET UNDER THE TONGUE THREE TIMES DAILY NEEDED amitriptyline 100 mg tablet 100 mg PO QHS hydroxyzine HCl 25 mg tablet 50 mg PO Q8H PRN (Reason: anxiety) Patient Comments: TAKE TWO TABLETS BY MOUTH EVERY 8 HOURS NEEDED (VIAL) sumatriptan succinate 50 mg tablet 50 mg PO PRN PRN (Reason: migraine headache) meloxicam 7.5 mg tablet 7.5 mg PO DAILY Patient Comments: TAKE ONE TABLET BY MOUTH DAILY AT 9AM pregabalin 200 mg capsule 200 mg PO Q8H lisinopril 20 mg tablet 40 mg PO DAILY Primary Care Provider: DALI FRAGOSO Referrals: Velvet Pepe MD [Med Staff - Critical Care Paramedic] - Disposition Disposition: Home, Self Care
[2022-11-14] MEDS: Morphine 4 MG/ML Syringe IV (11:35)
[2022-11-14] MEDS: Ondansetron 4 MG/2 ML Vial IV (11:35)
[2022-11-14] MEDS: 0.9% Normal Saline (1000mL) 1,000 ML 1000 ML IV (11:36)
[2022-11-14 11:44] LABS: AST(SGOT) 22 U/L (15-37); Alanine Aminotransfer ALT/SGPT 21 U/L (13-56); Albumin, Serum 4.4 g/dL (3.2-5.0); Alkaline Phosphatase 119 U/L (45-117); Anion Gap 5 (5-15); BUN 14 mg/dL (7-18); BUN/Creat Ratio 13.9 RATIO (10-20); Bilirubin, Direct 0.24 mg/dL (0.00-0.30); Calcium,Total 10.2 mg/dL (8.5-10.1); Chloride 104 mmol/L (98-107); Creatinine, Serum 1.01 mg/dL (0.55-1.02); EST Glomerular Filtration Rate 59 mL/min (>60); Est Glom Filt Rate - Afr Amer 71 mL/min (>60); Globulin 4.5 g/dL (2.2-4.2); Glucose 125 mg/dL (74-106); Lipase 38 U/L (13-75); Potassium 3.3 mmol/L (3.5-5.1); Protein, Total 8.9 g/dL (6.4-8.2); Sodium Level 139 mmol/L (136-145)
[2022-11-14 13:50] LABS: Bacteria 0 SEEN /hpf (None Seen); Mucous, Urine 0 SEEN /hpf (<or=2+); Red Blood Cells-Urine 0 SEEN /hpf (0-5); Squamous Epithelial Cells - UA 0 SEEN /hpf (5-10)
[2022-11-14 13:52] LABS: Absolute Lymphocyte Count 1.56 X10^3/uL (0.83-4.51); Absolute Neutrophil Count 6.9 X10^3/uL (2.0-7.7); Basophil# 0.04 X10^3/uL; Basophil% 0.4 % (0-1); Eosinophil# 0.08 X10^3/uL; Eosinophils% 0.9 % (0-5); Hematocrit 46.7 % (37-47); Hemoglobin 15.3 g/dL (12.0-15.0); Lymphocyte # 1.56 X10^3/ul (0.83-4.51); Mean Corp Hgb Conc 32.8 g/dL (32-36); Mean Corpuscular Hgb 29.1 pg (27.0-32.0); Mean Platelet Vol. 10.3 fl (6.2-12.0); Monocyte# 0.59 X10^3/uL; Monocyte% 6.4 % (0-10); NRBC Flagged by Analyzer 0 % (0-5); Neutrophil # 6.88 X10^3/uL (2.7-7.7); Neutrophil % 74.9 % (47-70); Platelet Count 234 K/mm3 (150-450); RBC Distribution Width CV 12.7 % (11.6-14.6); RBC Distribution Width SD 41.5 fl (35.1-43.9); Red Blood Count 5.25 M/mm3 (4.2-5.4); White Blood Count 9.2 K/mm3 (4.4-11.0)
[2022-11-14 14:13] LABS: Color, Urine Yellow (Yellow); Glucose, Dipstick Normal (Normal); Ketone-Dipstick 15 mg/dl (Negative); Leukocyte Esterase-Dipstick 500 /ul (Negative); Nitrite-Dipstick Negative (Negative); Occult Blood-Urine 10 /ul (Negative); Protein-Dipstick 100 mg/dl (Negative); Specific Gravity, Urine 1.015 (1.002-1.030); Urine Bilirubin Dipstick Negative (Negative); Urine Clarity Clear (Clear); Urine Urobilinogen Normal (Normal)
[2022-11-14 14:38] LABS: White Blood Cells 25-50 SEEN /hpf (0-5)
[2022-11-14] MEDS: Cephalexin 250 MG Capsule 500 MG PO (14:55)
[2022-11-14 15:05] VITALS: BP 148/81; PULSE 79
== END 2022-11-14 15:06 | disposition home or self-care (01) ==
PROVIDERS: Emergency Provider Student in an Organized Health Care Education/Training Program; PCP Nurse Practitioner; Visit Provider Student in an Organized Health Care Education/Training Program
DX: N10 Acute pyelonephritis (principal); R11.2 Nausea with vomiting, unspecified; F17.210 Nicotine dependence, cigarettes, uncomplicated; I25.2 Old myocardial infarction
CPT/HCPCS: 74177; 80048; 80076; 81001; 83690; 85025; 87086; 87088; 96361; 96374; 96375; 99284; J7030; Q9967; A4216; J2405

== ENCOUNTER 2022-11-17 19:16 | Emergency (ER) | payer MEDICARE, MEDICAID, SELFPAY ==
[2022-11-17 19:18] VITALS: BP 171/104; PULSE 88; RESP 20; TEMP 36.9; O2SAT 98
[2022-11-17 19:21] VITALS: BP 171/104; PULSE 88; RESP 20; TEMP 36.9; O2SAT 98
[2022-11-17] MEDS: Acetaminophen 325 MG Tablet 650 MG PO (19:45)
--- NOTE | 2022-11-17 19:50 | RAD_ITS ---
INDICATION: injury EXAMINATION/TECHNIQUE: X-RAY - RIGHT XR Hip Unilateral with Pelvis when performed; 2-3 Views 3 VIEWS COMPARISON: CT abdomen and pelvis from November 14, 2022. FINDINGS: Mild bilateral hip joint space narrowing and SI joint degenerative change. Lower lumbar spine facet arthropathy. There is no acute pelvic ring fracture identified. Area of sclerosis through the left inferior ramus unchanged from CT November 14, 2022. Visualized proximal right femur shows no significant abnormality. RAD/HIP, UNI W/ Pelvis 2-3 Views IMPRESSION: No acute fracture detected. Electronically Signed: Juan Caceres MD at 20:04 EDT ,
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
[2022-11-17 21:13] VITALS: RESP 18
--- NOTE | 2022-11-17 21:14 | ED.RN ---
Spoke with bilingual sales representative from [facility]. She is going to call her chemical manager in regards to getting the patient to the residential this evening.
== END 2022-11-17 21:43 | disposition home or self-care (01) ==
PROVIDERS: Emergency Provider Emergency Medicine; PCP Nurse Practitioner; Visit Provider Emergency Medicine
DX: S70.01XA Contusion of right hip, initial encounter (principal); F17.210 Nicotine dependence, cigarettes, uncomplicated; I25.2 Old myocardial infarction; X58.XXXA Exposure to other specified factors, initial encounter
CPT/HCPCS: 73502; 99283

== ENCOUNTER 2023-05-11 11:14 | Inpatient (IN) | payer MEDICARE, MEDICAID, SELFPAY ==
[2023-05-11] VITALS (11 sets, daily range): BP systolic 128–199; BP diastolic 84–134; PULSE 97–112; RESP 16–23; TEMP 36.3–37.7; O2SAT 89–97; BMI 24.8; BMI 22.3
--- NOTE | 2023-05-11 11:18 | EDS_ITS ---
<Statement entered by Ness Yu MD - 05/11/23 17:38> I have personally performed a face to face assessment of the patient and have reviewed the KELLY Note. Patient presents secondary to diarrhea and weakness. She reports 1 week history of nausea and diarrhea. She is having difficulty caring for herself at home. Patient lying in bed appears ill appearing. Head and neck examination reveals dry mucous membranes. Heart is regular rate and rhythm. Lung sounds are grossly clear. Abdomen is soft with diffuse tenderness palpation. Patient given IV fluids and nausea medication. Lab work significant for hypokalemia with a potassium of 2.8. Renal function is normal. Lactic acid is slightly elevated at 2.4. CT scan of the abdomen and pelvis along with chest reveals a right lower lobe pneumonia. Cultures obtained and patient given IV antibiotics. Potassium was replaced via IV. Patient discussed with hospitalist for admission. HPI History of Present Illness Chief Complaint: Nausea/Vomiting/Diarrhea Narrative Narrative: Patient is a 62-year-old female with history of fibromyalgia, bipolar type I, on antidepressants, CAD who presents to the emerged department with 5 days of abdominal pain, nausea, diarrhea. Patient states she is having greater than 10 bowel movements a day where is almost uncontrollable. Patient complains of fever and chills. Patient that she is extremely weak at home and cannot perform her daily activities. Patient denies any blood in stool or vomit. Patient does have significant abdominal pain throughout her abdomen. Denies any recent antibiotic use, denies any recent travel. [facility] Medical History Bipolar 1 disorder COPD (chronic obstructive pulmonary disease) Fibromyalgia Hypertension NSTEMI (non-ST elevated myocardial infarction) Rheumatoid arthritis Home Medications albuterol sulfate 90 mcg/actuation aerosol inhaler (ProAir HFA) 2 puff inhalation Q4H PRN PRN Sob &/Or Wheezing 07/26/14 [History Last Taken 06/06/17] lisinopril 40 mg tablet (Zestril) 40 mg PO DAILY bp 07/26/14 [History Last Taken 06/07/17] albuterol sulfate 90 mcg/actuation aerosol inhaler (ProAir HFA) 1 puff inhalation Q4H PRN PRN Dyspnea/Wheezing/Sob 03/21/15 [History Last Taken Unknown] nitroglycerin 0.4 mg sublingual tablet 0.4 mg sublingual PRN PRN CHEST PAIN 06/04/17 [History Last Taken Unknown] hyoscyamine sulfate 0.125 mg sublingual tablet 0.125 mg sublingual Q8H PRN dyspepsia 10/09/22 [History Last Taken Unknown] nitrofurantoin monohydrate/macrocrystals 100 mg capsule 100 mg PO Q12 #10 CAPSULES 10/09/22 [Rx Last Taken Unknown] amitriptyline 100 mg tablet 100 mg PO QHS 10/10/22 [History Last Taken Unknown] hydroxyzine HCl 25 mg tablet 50 mg PO Q8H PRN anxiety 10/10/22 [History Last Taken Unknown] lisinopril 20 mg tablet 40 mg PO DAILY 10/10/22 [History Last Taken Unknown] meloxicam 7.5 mg tablet 7.5 mg PO DAILY 10/10/22 [History Last Taken Unknown] pregabalin 200 mg capsule 200 mg PO Q8H 10/10/22 [History Last Taken Unknown] sumatriptan succinate 50 mg tablet 50 mg PO PRN PRN migraine headache 10/10/22 [History Last Taken Unknown] cefpodoxime 200 mg tablet 200 mg PO BID #24 tabs 11/14/22 [Rx Last Taken Unknown] hydrocodone-acetaminophen 5-325mg 5mg-325mg 1 tab PO Q6H PRN PRN Pain 3 days #10 TABLETS 11/14/22 [Rx Last Taken Unknown] ondansetron 4 mg disintegrating tablet 4 mg PO Q8H PRN PRN Nausea #14 tabs 11/14/22 [Rx Last Taken Unknown] Allergy/AdvReac Type Severity Reaction Status Date / Time methotrexate Allergy Other Verified 05/11/23 11:21 nadolol Allergy Unknown Verified 05/11/23 11:21 prochlorperazine Allergy PT UNABLE Verified 05/11/23 11:21 TO RESPOND-NEEDS F/U baclofen AdvReac Other Verified 05/11/23 11:21 lorazepam [From Ativan] AdvReac Nausea Verified 11/14/22 10:49 propranolol AdvReac Other Verified 05/11/23 11:21 Social History Smoking Status: Current every day smoker tobacco type: cigarettes ROS ROS ED ROS Narrative Constitutional: Negative for weight loss. Positive for fever chills, weakness Eyes: Negative for vision loss, vision change, double vision ENT: Negative for any sore throat, ear pain, congestion Cardiovascular: Negative for any chest pain, tightness, palpitations Respiratory: Negative for any cough, sputum production, hemoptysis, dyspnea, dyspnea on exertion, orthopnea Gastrointestinal: Negative for any abdominal pain, vomiting, constipation, blood in stool, blood in vomit. Positive for nausea, controlled diarrhea : Negative for any urinary frequency, dysuria, retention, blood in urine Muscle skeletal: Negative for any neck pain, back pain Neurological: Negative for any headache, syncope, dizziness Skin: Negative for any rashes, itching, abrasions, lacerations Psychiatric: Negative for any depression, anxiety, stress, suicidal ideation, homicidal ideation Hematologic: Negative for any excessive bruising, easy bleeding EXAM Physical Exam Narrative Exam Narrative: Vital signs reviewed. Patient does look like she does not feel well, patient is dehydrated appearing. HEET: Head normocephalic atraumatic, TMs clear bilaterally. Posterior pharynx is clear, dry mucous membranes. Nares clear bilaterally. Neck: Supple with no lymphadenopathy or tenderness. No signs of meningismus. Cardiac: Regular rate and rhythm no murmurs gallops or rubs, equal peripheral pulses bilaterally. Respiratory: Lungs clear to auscultation bilaterally. No chest tenderness. Abdomen: Soft, nondistended. No abdominal bruit or pulsatile masses. No hepatosplenomegaly. Patient was settled on my examination. Patient had significant abdominal pain on palpation worse to the left lower quadrant. Extremities: No peripheral edema, no signs of gross trauma or deformity. Active full range of motion of all extremities. Neuro: Cranial nerves II through XII intact, no focal neurological deficits. Skin: Clean dry and intact with no rash, purpura, petechiae, vesicles or pustules. Backs/flank: No CVA tenderness, no midline spinal tenderness, no deformity. Psych: Normal mood and affect. No SI, HI or acute psychosis. Const Vital Signs: 05/11/23 11:15 05/11/23 13:08 05/11/23 13:11 Temperature 97.4 F L Temperature Source Temporal Pulse Rate 110 H 112 H 111 H Respiratory Rate 18 22 H 23 H Blood Pressure 155/116 H 199/134 H 167/110 H Blood Pressure Mean 129 155 129 Pulse Ox 92 89 92 Oxygen Delivery Method Room Air Room Air Nasal Cannula Oxygen Flow Rate (L/min) 2 05/11/23 13:45 Temperature Temperature Source Pulse Rate 112 H Respiratory Rate 16 Blood Pressure 152/96 H Blood Pressure Mean 114 Pulse Ox 97 Oxygen Delivery Method Room Air Oxygen Flow Rate (L/min) Positive cachectic and unkempt General Appearance ED: unkempt and cachectic Nutritional Appearance: cachectic Psych Appearance: unkempt MDM MDM Lab Data Labs: Laboratory Results - last 24 hr 05/11/23 05/11/23 10:59 12:55 WBC 13.4 H RBC 4.74 Hgb 14.0 Hct 41.7 MCV 88.0 MCH 29.5 MCHC 33.6 RDW Std Deviation 42.7 RDW Coeff of Alejandra 13.2 Plt Count 394 MPV 9.4 Immature Gran % (Auto) 2.000 H Neut % (Auto) 78.4 H Lymph % (Auto) 10.8 L Cloud % (Auto) 8.6 Eos % (Auto) 0.0 Baso % (Auto) 0.2 Absolute Neuts (auto) 10.5 H Absolute Lymphs (auto) 1.45 Nucleated RBC % 0 Differential Comment SCANNED Sodium 136 Potassium 2.8 L Chloride 96 L Carbon Dioxide 28.0 Anion Gap 12 BUN 11 Creatinine 0.82 Estim Creat Clear Calc 56.58 Est GFR (MDRD) Af Amer 90 Est GFR (MDRD) Non-Af 75 BUN/Creatinine Ratio 13.3 Glucose 136 H Lactic Acid 2.4 H* Calcium 9.4 Total Bilirubin 0.60 AST 41 H ALT 22 Alkaline Phosphatase 135 H Total Protein 8.4 H Albumin 3.0 L Globulin 5.4 H Albumin/Globulin Ratio 0.6 L Lipase 14 Urine Color Yellow Urine Clarity Clear Urine pH 5.0 Ur Specific [place] 1.010 Urine Protein 100 H Urine Glucose (UA) Normal Urine Ketones 50 H Urine Occult Blood 10 H Urine Nitrite Negative Urine Bilirubin Negative Urine Urobilinogen Normal Ur Leukocyte Esterase Negative Urine RBC 0 SEEN Urine WBC 0 SEEN Ur Squamous Epith Cells 0 SEEN Amorphous Sediment 1+ Urine Bacteria 0 SEEN Urine Mucus 0 SEEN Radiography Diagnostic Testing: Clinical Impression(s) from Imaging Studies Abdomen/Pelvis CT 05/11/23 11:27 IMPRESSION: 1. Abnormal intramural edema/thickening of the distal gastric antrum wall extending to the pylorus. EGD will be very helpful for further evaluation. 2. No other suspicious acute abnormality in the abdomen and pelvis. 3. Prominent right lateral lung base atelectasis with air bronchograms. Superimposed pneumonia cannot be excluded. 4. Subpleural confluent infiltrate in the medial aspect of the left lower lobe is most likely pneumonia rather than pulmonary nodule. This is a new finding. Follow-up CT chest in one month will help clarify. 5. Cardiomegaly with new 4 mm right pericardial effusion. Electronically Signed: Thomas Portillo MD at 13:27 EST , Chest CT 05/11/23 12:42 IMPRESSION: 1. Prominent atelectases in the right lateral lung base containing air bronchograms. Superimposed pneumonia can''t be excluded. This accounts for the new mediastinal shift when compared to 07/26/2014. 2. A couple of adjacent nodular-like infiltrates in the central aspect of the right upper lobe. This is most likely pneumonia. This is a new finding. 3. Subsegmental atelectasis in the caudal aspect of the right upper lobe. 4. Previous large pneumonia involving the lower lobes of the groundglass opacities in the upper lobes towards the apices have largely resolved. Pneumonia above are new findings. 5. Increased thoracic kyphosis due to increased number of old anterior wedge compression fractures involving T6 down to T11 vertebral bodies. 6. Cardiomegaly is unchanged but there is new 4 mm small right pericardial effusion. Electronically Signed: Thomas Portillo MD at 13:12 EST , EKG Sinus tachycardia: Attestation: I personally reviewed and interpreted this EKG as follows: Comments: Sinus tachycardia with short DE, rate 110 bpm, DE 94 ms, QRS duration 90 ms, no acute ST elevation, no acute infarct noted. Treatment and Re-Evaluation :: Differential diagnosis includes however is not limited to: C. difficile, diverticulitis, viral stool infection, gastroenteritis, COVID-19, influenza Patient appears to be in mild distress secondary to dehydration, uncontrollable diarrhea. Patient is tachycardic at a rate of 110, blood pressure slightly elevated. Patient received basic laboratory values, including stool studies, patient will receive a lactic acid. CT scan of the abdomen pelvis will be completed secondary to the patient's tenderness to her left lower abdomen. Patient will receive IV fluids, IV Zofran. Patient will be reevaluated. Patient's laboratory values shows a white blood count of 13.4, slight leukocytosis, patient does have some absolute neutrophils of 10.5. Patient's potassium is low at 2.8, chloride low at 96. Renal function was unremarkable, lactic acid was elevated 2.4, patient was given 1 L of normal saline. Lipase was negative. Patient is positive for RSV. Patient's urinalysis was negative for any infection. Patient CT scan of the abdomen pelvis shows an abnormal intramural edema/thickening of the distal gastric atrium wall extending to the pylorus, EGD will be helpful. No other suspicious abnormality in the abdomen or pelvis. Patient CT scan of the chest shows a prominent atelectasis in the right lateral lung base containing air bronchograms. Superimposed pneumonia cannot be excluded. A couple of adjacent nodular-like infiltrates in the central aspect of the right upper lobe. Cardiomegaly unchanged with there is a 4 mm small right pericardial effusion. At this time, patient did drop to 88% on room air, patient was placed on 2 L. Secondary to the dehydration, hypokalemia, RSV, infiltrates, patient will be admitted to the hospital. I spoke with hospitalist, patient be PCU full, patient be started on Rocephin, Zithromax. 2 sets of blood cultures will be drawn. Patient is agreeable with the plan, patient stable for admission. Discharge Plan Triage Chief Complaint: Nausea/Vomiting/Diarrhea ED Midlevel Provider: Juan Celis ED Provider: Ness Yu Dx/Rx/DC Orders Clinical Impression: Community acquired pneumonia, RSV infection, Hypoxia, Acute hypokalemia Prescriptions: No Action albuterol sulfate [ProAir HFA] 1 PUFF inhaler 2 puff inhalation Q4H PRN PRN (Reason: Sob &/Or Wheezing) lisinopril [Zestril] 40 MG tablet 40 mg PO DAILY albuterol sulfate [ProAir HFA] 1 PUFF inhaler 1 puff inhalation Q4H PRN PRN (Reason: Dyspnea/Wheezing/Sob) nitroglycerin 0.4 MG tablet, sublingual 0.4 mg sublingual PRN PRN (Reason: CHEST PAIN) cefpodoxime 200 mg tablet 200 mg PO BID Qty: 24 0RF Rx Instructions: must administer with a meal/food ondansetron 4 mg tablet,disintegrating 4 mg PO Q8H PRN PRN (Reason: Nausea) Qty: 14 0RF hydrocodone-acetaminophen 5-325 mg tablet 1 tab PO Q6H PRN PRN (Reason: Pain) 3 Days Qty: 10 0RF nitrofurantoin monohyd/m-cryst [nitrofurantoin monohyd/m-cryst] 100 mg capsule 100 mg PO Q12 Qty: 10 0RF hyoscyamine sulfate 0.125 mg tablet, sublingual 0.125 mg sublingual Q8H PRN (Reason: dyspepsia) Patient Comments: DISSOLVE 1 TABLET UNDER THE TONGUE THREE TIMES DAILY NEEDED amitriptyline 100 mg tablet 100 mg PO QHS hydroxyzine HCl 25 mg tablet 50 mg PO Q8H PRN (Reason: anxiety) Patient Comments: TAKE TWO TABLETS BY MOUTH EVERY 8 HOURS NEEDED (VIAL) sumatriptan succinate 50 mg tablet
--- NOTE | 2023-05-11 11:26 | EKG12_ITS ---
Test Reason : NAUSEA Blood Pressure : / mmHG Vent. Rate : 110 BPM Atrial Rate : 110 BPM P-R Int : 094 ms QRS Dur : 090 ms QT Int : 350 ms P-R-T Axes : 069 058 -83 degrees QTc Int : 473 ms Sinus tachycardia with short IA Inferior infarct , age undetermined Anterolateral infarct , age undetermined Abnormal ECG Confirmed by Fareed Maxwell ([id number]), city editor NELSON RICKS ([id number]) on 05/14/2023 7:21:37 AM Referred By: Confirmed By:Fareed Maxwell
--- NOTE | 2023-05-11 11:27 | CT_ITS ---
EXAM: CT ABDOMEN AND PELVIS WITH INTRAVENOUS CONTRAST CLINICAL INDICATION: Abdominal pain. TECHNIQUE: Helically acquired images were obtained of the abdomen and pelvis with intravenous contrast. This CT exam was performed using one or more of the following dose reduction techniques: automated exposure control, adjustment of the mA and/or kV according to patient size, and/or use of iterative reconstruction technique. CONTRAST: IV 100mL Isovue-370 RADIATION DOSE: CTDIvol = 15.89 mGy, DLP = 1182.83 mGy-cm COMPARISON: CT abdomen and pelvis with IV contrast 11/14/2022. FINDINGS: LOWER THORAX: Subpleural infiltrate versus mass in the medial aspect of the left lower lobe. Prominent atelectasis in the right lateral lung base with mediastinal shift. 4 mm right pericardial effusion is a new finding. Mild cardiomegaly is unchanged. ABDOMEN: LIVER: Unremarkable. Homogeneous. No focal mass. GALLBLADDER AND BILE DUCTS: Unremarkable. No calcified gallstones. No gallbladder distention or wall edema. No intra- or extrahepatic biliary ductal dilation. PANCREAS: Unremarkable. No focal cystic or solid mass. SPLEEN: Unremarkable. Normal size without focal cystic or solid mass. ADRENALS: Unremarkable. No nodules. KIDNEYS AND URETERS: Unremarkable. Normal renal size and position. No hydronephrosis. STOMACH AND BOWEL: Abnormal intramural edema of the gastric antral wall extending towards. Normal small bowel.. Narrowing of the terminal ileum may be due to peristalsis rather than stricture. PELVIS: APPENDIX: The appendix is not visualized but there are no secondary signs of acute appendicitis. Tubular fluid-filled structure near the cecum is part of the terminal ileum when correlated with the sagittal reconstructed images rather than the appendix. BLADDER: Unremarkable. REPRODUCTIVE: Unremarkable as visualized. No mass. ABDOMEN and PELVIS: INTRAPERITONEAL SPACE: Unremarkable. No ascites or other fluid collection. No free air. BONES/JOINTS: Nearly grade 1 degenerative anterolisthesis of L4 on L5 and moderately pronounced bilateral L4-L5 degenerative facet arthropathy with widening of the facet joints. No suspicious lytic or blastic abnormality. SOFT TISSUES: No discrete abdominal or pelvic wall hernia. VASCULATURE: Unremarkable. Abdominal aorta is non-dilated. LYMPH NODES: Unremarkable. No enlarged lymph nodes. CT/Abdomen/Pelvis W IV Cont ONLY IMPRESSION: 1. Abnormal intramural edema/thickening of the distal gastric antrum wall extending to the pylorus. EGD will be very helpful for further evaluation. 2. No other suspicious acute abnormality in the abdomen and pelvis. 3. Prominent right lateral lung base atelectasis with air bronchograms. Superimposed pneumonia cannot be excluded. 4. Subpleural confluent infiltrate in the medial aspect of the left lower lobe is most likely pneumonia rather than pulmonary nodule. This is a new finding. Follow-up CT chest in one month will help clarify. 5. Cardiomegaly with new 4 mm right pericardial effusion. Electronically Signed: Thomas Portillo MD at 13:27 EST ,
[2023-05-11] MEDS: Ondansetron 4 MG/2 ML Vial IV (11:50)
[2023-05-11] MEDS: 0.9% Normal Saline (1000mL) 1,000 ML 1000 ML IV (11:50)
[2023-05-11 11:56] LABS: Absolute Lymphocyte Count 1.45 X10^3/uL (0.83-4.51); Absolute Neutrophil Count 10.5 X10^3/uL (2.0-7.7); Basophil# 0.03 X10^3/uL; Basophil% 0.2 % (0-1); Hematocrit 41.7 % (37-47); Lymphocyte # 1.45 X10^3/ul (0.83-4.51); Lymphocyte % 10.8 % (19-41); Mean Corp Hgb Conc 33.6 g/dL (32-36); Mean Corpuscular Hgb 29.5 pg (27.0-32.0); Mean Platelet Vol. 9.4 fl (6.2-12.0); Monocyte# 1.15 X10^3/uL; Monocyte% 8.6 % (0-10); NRBC Flagged by Analyzer 0 % (0-5); Neutrophil # 10.54 X10^3/uL (2.7-7.7); Neutrophil % 78.4 % (47-70); POSITIVE MORPHOLOGY YES; Platelet Count 394 K/mm3 (150-450); RBC Distribution Width CV 13.2 % (11.6-14.6); RBC Distribution Width SD 42.7 fl (35.1-43.9); Red Blood Count 4.74 M/mm3 (4.2-5.4); White Blood Count 13.4 K/mm3 (4.4-11.0)
[2023-05-11 11:57] LABS: Differential Indicated SCAN CRITERIA MET
[2023-05-11 12:17] LABS: ALB/GLOB Ratio 0.6 RATIO (0.9-2.4); AST(SGOT) 41 U/L (15-37); Alanine Aminotransfer ALT/SGPT 22 U/L (13-56); Alkaline Phosphatase 135 U/L (45-117); Anion Gap 12 (5-15); BUN 11 mg/dL (7-18); BUN/Creat Ratio 13.3 RATIO (10-20); Calcium,Total 9.4 mg/dL (8.5-10.1); Chloride 96 mmol/L (98-107); Creatinine, Serum 0.82 mg/dL (0.55-1.02); EST Glomerular Filtration Rate 75 mL/min (>60); Est Glom Filt Rate - Afr Amer 90 mL/min (>60); Estimated Creatinine Clearance 56.58 ml/min; Globulin 5.4 g/dL (2.2-4.2); Glucose 136 mg/dL (74-106); Lipase 14 U/L (13-75); Potassium 2.8 mmol/L (3.5-5.1); Protein, Total 8.4 g/dL (6.4-8.2); Sodium Level 136 mmol/L (136-145)
[2023-05-11 12:34] LABS: Differential Comment SCANNED
[2023-05-11 12:40] LABS: Lactic Acid 2.4 mmol/L (0.4-1.9)
--- NOTE | 2023-05-11 12:42 | CT_ITS ---
EXAM: CT CHEST WITH INTRAVENOUS CONTRAST CLINICAL INDICATION: Pneumonia. TECHNIQUE: Helically acquired images were obtained of the chest with intravenous contrast. This CT exam was performed using one or more of the following dose reduction techniques: automated exposure control, adjustment of the mA and/or kV according to patient size, and/or use of iterative reconstruction technique. CONTRAST: IV 100mL Isovue-370 RADIATION DOSE: CTDIvol = 15.89 mGy, DLP = 1182.83 mGy-cm COMPARISON: CTA chest 07/26/2014. FINDINGS: LUNGS AND PLEURAL SPACES: A couple of small adjacent infiltrates in the central aspect of the right upper lobe. Prominent atelectasis in the right lateral lung base containing air bronchograms. Multiple subsegmental atelectasis in the caudal aspect of the right upper lobe. No mass. No pleural effusion or thickening. HEART: Cardiomegaly is unchanged. 4 mm right pericardial effusion. MEDIASTINUM: Unremarkable. No mediastinal or hilar adenopathy. Esophagus is unremarkable. No hiatal hernia. THYROID: Unremarkable. No thyroid lesions. BONES/JOINTS: Motion artifacts rather than fractures along the body of the sternum. Modic type II degenerative vertebral marrow sclerosis underneath the vertebral endplates at T9-T10 and T10-T11 disc space levels. Multiple mild old anterior wedge compression fractures involving T6, T7, T8, T9, T10 and T11 vertebral bodies. No suspicious lytic or blastic abnormality. VASCULATURE: Unremarkable. Thoracic aorta is non-dilated. No thoracic aortic dissection. No obvious central pulmonary embolism although this study was not performed with the pulmonary embolism protocol. CT/Chest WITH Contrast IMPRESSION: 1. Prominent atelectases in the right lateral lung base containing air bronchograms. Superimposed pneumonia can''t be excluded. This accounts for the new mediastinal shift when compared to 07/26/2014. 2. A couple of adjacent nodular-like infiltrates in the central aspect of the right upper lobe. This is most likely pneumonia. This is a new finding. 3. Subsegmental atelectasis in the caudal aspect of the right upper lobe. 4. Previous large pneumonia involving the lower lobes of the groundglass opacities in the upper lobes towards the apices have largely resolved. Pneumonia above are new findings. 5. Increased thoracic kyphosis due to increased number of old anterior wedge compression fractures involving T6 down to T11 vertebral bodies. 6. Cardiomegaly is unchanged but there is new 4 mm small right pericardial effusion. Electronically Signed: Thomas Portillo MD at 13:12 EST ,
[2023-05-11] MEDS: Potassium Chloride 10mEq/100mL 10 MEQ/100 ML IV.SOLN. 100 MEQ IV BOLUS ×4 (13:03→16:50)
[2023-05-11] MEDS: Ceftriaxone 1 GM/50 ML BAG IV (13:05)
[2023-05-11 13:15] LABS: Bacteria 0 SEEN /hpf (None Seen); Mucous, Urine 0 SEEN /hpf (<or=2+); Red Blood Cells-Urine 0 SEEN /hpf (0-5); Squamous Epithelial Cells - UA 0 SEEN /hpf (5-10); White Blood Cells 0 SEEN /hpf (0-5)
[2023-05-11 13:20] LABS: Color, Urine Yellow (Yellow); Glucose, Dipstick Normal (Normal); Ketone-Dipstick 50 mg/dl (Negative); Leukocyte Esterase-Dipstick Negative /ul (Negative); Nitrite-Dipstick Negative (Negative); Occult Blood-Urine 10 /ul (Negative); Protein-Dipstick 100 mg/dl (Negative); Urine Bilirubin Dipstick Negative (Negative); Urine Clarity Clear (Clear); Urine Urobilinogen Normal (Normal)
[2023-05-11 13:36] LABS: Amorphous Sediment 1+
[2023-05-11] MEDS: Azithromycin 500 MG in Dextrose 5%-Water (250mL Bag) 250 ML 250 MG IV (13:43)
--- NOTE | 2023-05-11 13:53 | NURSING ---
PCU [facility]
[2023-05-11] MEDS: HYDROcodone Bitartrate/Apap 5/325 Tablet PO ×2 (15:14→21:01)
[2023-05-11] MEDS: hydrOXYzine PAM 25 MG Capsule 50 MG PO (15:14)
[2023-05-11 15:49] LABS: Reflex Lactate? Y
[2023-05-11 17:38] LABS: Lactic Acid 1.4 mmol/L (0.4-1.9)
--- NOTE | 2023-05-11 17:43 | PCM.HP.STD ---
HPI - General General Date of Admission: 05/11/23 Date of Service: 05/11/23 Chief Complaint: Acute diarrhea with shortness of breath HPI Narrative TOMI DIA, with past medical history of COPD, NSTEMI, fibromyalgia, rheumatoid arthritis, hypertension, bipolar disorder, is a 62 F who presents ongoing diarrhea since the last 7 to 10 days, and associated shortness of breath. Diarrhea, change in stool consistency and about 4-5 bowel movements per day since the last 7 to 10 days. No blood associated. Occasional abdominal pain and mild fever noted. Reports associated anorexia. Has been feeling progressively weak since the initiation of diarrhea and has no significant shortness of breath and easy fatigability with minor movements. Does not smoke nicotine, occasional marijuana use, intermittent alcohol use. [facility] Medical History Bipolar 1 disorder COPD (chronic obstructive pulmonary disease) Fibromyalgia Hypertension NSTEMI (non-ST elevated myocardial infarction) Rheumatoid arthritis Home Medications albuterol sulfate 90 mcg/actuation aerosol inhaler (ProAir HFA) 2 puff inhalation Q4H PRN PRN Sob &/Or Wheezing 07/26/14 [History Last Taken 06/06/17] lisinopril 40 mg tablet (Zestril) 40 mg PO DAILY bp 07/26/14 [History Last Taken 06/07/17] nitroglycerin 0.4 mg sublingual tablet 0.4 mg sublingual PRN PRN CHEST PAIN 06/04/17 [History Last Taken Unknown] hyoscyamine sulfate 0.125 mg sublingual tablet 0.125 mg sublingual Q8H PRN dyspepsia 10/09/22 [History Last Taken Unknown] amitriptyline 100 mg tablet 100 mg PO QHS depresssion 10/10/22 [History Last Taken Unknown] hydroxyzine HCl 25 mg tablet 50 mg PO Q8H PRN anxiety 10/10/22 [History Last Taken Unknown] lisinopril 20 mg tablet 40 mg PO DAILY BP 10/10/22 [History Last Taken Unknown] meloxicam 7.5 mg tablet 7.5 mg PO DAILY pain 10/10/22 [History Last Taken Unknown] pregabalin 200 mg capsule 200 mg PO Q8H 10/10/22 [History Last Taken Unknown] sumatriptan succinate 50 mg tablet 50 mg PO PRN PRN migraine headache 10/10/22 [History Last Taken Unknown] ondansetron 4 mg disintegrating tablet 4 mg PO Q8H PRN PRN Nausea #14 tabs 11/14/22 [Rx Last Taken Unknown] atorvastatin 40 mg tablet 40 mg PO QHS Cholesterol 05/11/23 [History Last Taken Unknown] buspirone 5 mg tablet 5 mg PO TID Anxiety 05/11/23 [History Last Taken Unknown] dexlansoprazole 60 mg capsule,biphase delayed release 60 mg PO DAILY GERD 05/11/23 [History Last Taken Unknown] escitalopram oxalate 20 mg tablet 20 mg PO DAILY depression 05/11/23 [History Last Taken Unknown] fluticasone propionate 50 mcg/actuation nasal spray,suspension 2 spray intranasal DAILY allergies 05/11/23 [History Last Taken Unknown] furosemide 40 mg tablet 40 mg PO DAILY water pill 05/11/23 [History Last Taken Unknown] hydroxyzine HCl 50 mg tablet 50 mg PO TID Anxiety 05/11/23 [History Last Taken Unknown] pregabalin 25 mg capsule 25 mg PO BID Nerve pain 05/11/23 [History Last Taken Unknown] tizanidine 4 mg tablet 4 mg PO QHS PRN PRN muscle spasm 05/11/23 [History Last Taken Unknown] Allergy/AdvReac Type Severity Reaction Status Date / Time methotrexate Allergy Other Verified 05/11/23 11:21 nadolol Allergy Unknown Verified 05/11/23 11:21 prochlorperazine Allergy PT UNABLE Verified 05/11/23 11:21 TO RESPOND-NEEDS F/U baclofen AdvReac Other Verified 05/11/23 11:21 lorazepam [From Ativan] AdvReac Nausea Verified 11/14/22 10:49 propranolol AdvReac Other Verified 05/11/23 11:21 Social History Smoking Status: Former smoker ROS Review of Systems ROS Unobtainable: Denies due to encephalopathy, due to endotracheal tube, due to mental condition, due to mental status or other Constitutional Constitutional: Reports anorexia, change in weight, chills and fatigue Eyes Eyes: Denies blurry vision, change in eye color, change in vision, discharge from eye(s), double vision, erythema, eye pain, loss of vision or other ENT HEENT: Denies abnormal hearing, dysphagia, ear pain, epistaxis, headache(s), hearing loss, nasal congestion, nasal discharge, post nasal drip, sinus pressure, sore throat or other Cardiovascular Cardiovascular: Reports dyspnea on exertion and lightheadedness Respiratory/Chest Respiratory/Chest: Reports cough, dyspnea and productive cough; Denies excessive phlegm production or hemoptysis Gastrointestinal Gastrointestinal: Reports abdominal pain, diarrhea and nausea; Denies hematemesis, hematochezia or vomiting Genitourinary Genitourinary: Denies burning urination, difficulty urinating, dysuria, hematuria, nocturia, urinary frequency, urinary hesitancy, urinary incontinence, urinary urgency or other Musculoskeletal Musculoskeletal: Denies arthralgias, back pain, joint pain, joint stiffness, joint swelling, myalgias, neck pain or other Neurologic Neurologic: Denies abnormal gait, abnormal speech, confusion, disequilibrium, dizziness, focal weakness, headache(s), numbness, paresthesias, seizure-like activity, seizures, syncope, tingling, tremor(s) or other Psychiatric Psychiatric: Denies anxiety, depression, homicidal ideation, suicidal ideation or other Endocrine Endocrinology: Denies change in body appearance, cold intolerance, excessive sweating, heat intolerance, polydipsia, polyuria or other Hematologic/Lymphatic Hematologic/Lymphatic: Denies anemia, easy bleeding, easy bruising, lymphadenopathy or other Allergic/Immunologic Allergic/Immunologic: Denies rhinitis, hives, eczemia, asthma or other Vital Signs Vital Signs Vital Signs: 05/11/23 11:15 05/11/23 13:08 05/11/23 13:11 Temperature 97.4 F L Temperature Source Temporal Pulse Rate 110 H 112 H 111 H Respiratory Rate 18 22 H 23 H Respiratory Effort Respiratory Depth Respiratory Pattern Blood Pressure 155/116 H 199/134 H 167/110 H Blood Pressure Mean 129 155 129 Blood Pressure Source Blood Pressure Position Blood Pressure Location Pulse Ox 92 89 92 Oxygen Delivery Method Room Air Room Air Nasal Cannula Oxygen Flow Rate (L/min) 2 05/11/23 13:45 05/11/23 14:21 05/11/23 14:50 Temperature 97.8 F 99.9 F H Temperature Source Oral Pulse Rate 112 H 110 H 108 H Respiratory Rate 16 16 20 H Respiratory Effort Respiratory Depth Respiratory Pattern Blood Pressure 152/96 H 128/93 H 151/106 H Blood Pressure Mean 114 104 121 Blood Pressure Source Monitor Blood Pressure Position Semi-Fowlers Blood Pressure Location Right Arm Pulse Ox 97 97 94 Oxygen Delivery Method Room Air Nasal Cannula Oxygen Flow Rate (L/min) 1 05/11/23 15:23 05/11/23 15:27 05/11/23 14:50 Temperature 99.9 F H Temperature Source Oral Pulse Rate 108 H Respiratory Rate 20 H Respiratory Effort Normal Non-Labored Respiratory Depth Normal Respiratory Pattern Normal Blood Pressure 151/106 H Blood Pressure Mean 121 Blood Pressure Source Blood Pressure Position Blood Pressure Location Pulse Ox 94 94 Oxygen Delivery Method Nasal Cannula Nasal Cannula Nasal Cannula Oxygen Flow Rate (L/min) 1 1 05/11/23 16:52 Temperature 99.8 F H Temperature Source Oral Pulse Rate 103 H Respiratory Rate 20 H Respiratory Effort Respiratory Depth Respiratory Pattern Blood Pressure 139/84 H Blood Pressure Mean 102 Blood Pressure Source Monitor Blood Pressure Position Semi-Fowlers Blood Pressure Location Left Arm Pulse Ox 96 Oxygen Delivery Method Nasal Cannula Oxygen Flow Rate (L/min) 3 Weight Weight: 118 lb 2.684 oz Body Mass Index (BMI) 22.3 Physical Exam Const alert and oriented x3 Constitutional Narrative: Malnourished, Orientation / Consciousness: lethargic HEENT normocephalic Eyes PERRL Neck no lymphadenopathy Resp normal respiratory effort Cardio regular rate and regular rhythm GI normal to inspection, nondistended, normoactive bowel sounds and soft to palpation Extremity normal to inspection, full ROM and no clubbing, cyanosis or edema Neuro oriented x3, CN's II-XII intact bilaterally and moves all extremities Psych affect normal Results Medical Records Data Attestation: I reviewed the patient's medical records Lab / Micro Data Attestation: I reviewed the patient's lab results. Lab results narrative: Leukocytosis, normal hemoglobin and platelet count, creatinine 0.8, AST 41, alk phosphatase 135, albumin 3.0, proteinuria present, urine WBC 0, lactic acid 1.4, 05/11/23 10:59 05/11/23 10:59 Labs: Laboratory Results - last 24 hr 05/11/23 10:59: WBC 13.4 H, RBC 4.74, Hgb 14.0, Hct 41.7, MCV 88.0, MCH 29.5, MCHC 33.6, RDW Std Deviation 42.7, RDW Coeff of Alejandra 13.2, Plt Count 394, MPV 9.4, Immature Gran % (Auto) 2.000 H, Neut % (Auto) 78.4 H, Lymph % (Auto) 10.8 L, [place] % (Auto) 8.6, Eos % (Auto) 0.0, Baso % (Auto) 0.2, Absolute Neuts (auto) 10.5 H, Absolute Lymphs (auto) 1.45, Nucleated RBC % 0, Differential Comment SCANNED, Sodium 136, Potassium 2.8 L, Chloride 96 L, Carbon Dioxide 28.0, Anion Gap 12, BUN 11, Creatinine 0.82, Estim Creat Clear Calc 56.58, Est GFR (MDRD) Af Amer 90, Est GFR (MDRD) Non-Af 75, BUN/Creatinine Ratio 13.3, Glucose 136 H, Lactic Acid 2.4 H*, Calcium 9.4, Total Bilirubin 0.60, AST 41 H, ALT 22, Alkaline Phosphatase 135 H, Total Protein 8.4 H, Albumin 3.0 L, Globulin 5.4 H, Albumin/Globulin Ratio 0.6 L, Lipase 14 05/11/23 12:55: Urine Color Yellow, Urine Clarity Clear, Urine pH 5.0, Ur Specific [place] 1.010, Urine Protein 100 H, Urine Glucose (UA) Normal, Urine Ketones 50 H, Urine Occult Blood 10 H, Urine Nitrite Negative, Urine Bilirubin Negative, Urine Urobilinogen Normal, Ur Leukocyte Esterase Negative, Urine RBC 0 SEEN, Urine WBC 0 SEEN, Ur Squamous Epith Cells 0 SEEN, Amorphous Sediment 1+, Urine Bacteria 0 SEEN, Urine Mucus 0 SEEN 05/11/23 16:09: Lactic Acid 1.4 Micro: Microbiology 05/11/23 11:37 Mucosa - Nasopharyngeal SARS-CoV-2, Influenza & RSV (PCR) - Final RSV Imaging Radiology Impression Abdomen/Pelvis CT 05/11/23 11:27 IMPRESSION: 1. Abnormal intramural edema/thickening of the distal gastric antrum wall extending to the pylorus. EGD will be very helpful for further evaluation. 2. No other suspicious acute abnormality in the abdomen and pelvis. 3. Prominent right lateral lung base atelectasis with air bronchograms. Superimposed pneumonia cannot be excluded. 4. Subpleural confluent infiltrate in the medial aspect of the left lower lobe is most likely pneumonia rather than pulmonary nodule. This is a new finding. Follow-up CT chest in one month will help clarify. 5. Cardiomegaly with new 4 mm right pericardial effusion. Electronically Signed: Thomas Portillo MD at 13:27 EST , Chest CT 05/11/23 12:42 IMPRESSION: 1. Prominent atelectases in the right lateral lung base containing air bronchograms. Superimposed pneumonia can''t be excluded. This accounts for the new mediastinal shift when compared to 07/26/2014. 2. A couple of adjacent nodular-like infiltrates in the central aspect of the right upper lobe. This is most likely pneumonia. This is a new finding. 3. Subsegmental atelectasis in the caudal aspect of the right upper lobe. 4. Previous large pneumonia involving the lower lobes of the groundglass opacities in the upper lobes towards the apices have largely resolved. Pneumonia above are new findings. 5. Increased thoracic kyphosis due to increased number of old anterior wedge compression fractures involving T6 down to T11 vertebral bodies. 6. Cardiomegaly is unchanged but there is new 4 mm small right pericardial effusion. Electronically Signed: Thomas Portillo MD at 13:12 EST , Assessment & Plan Assessment/Plan (1) RSV infection: PLAN: Plan 62-year-old female with a history of fibromyalgia, bipolar disorder, rheumatoid arthritis, presents to the ED with concerns regarding ongoing diarrhea since the last 10 days, shortness of breath and features of hypokalemia at the time of presentation. 1. Diarrhea: Likely infectious diarrhea given in the setting of acute onset, with significant electrolyte changes. -Symptomatic management for now -Correct hypokalemia -Input output monitoring -Diet as tolerated -CT scan suggestive of thickening of the distal gastric antrum, will consult GI as an outpatient for further evaluation. Could be in the setting of acute gastroenteritis. No features of colitis 2. Worsening shortness of breath: Likely related to RSV pneumonia leading to COPD exacerbation. There is subpleural confluent infiltrate in the medial aspect of the left lower lobe. There is only cough but no expectoration and will hold off antibiotics for now -Supportive oxygen therapy as needed -No antibiotics needed at this time given the stable pneumonia -Albuterol 2.5 mg every 4 as needed -Physical therapy 3. Hypokalemia: Related to acute diarrhea and fluid loss. -IV supplementation -Repeat potassium to check correction 4. Bipolar disorder: Continue Lexapro 5. Fibromyalgia: Continue home pain medications including Zanaflex and hydrocodone 6. DVT prophylaxis: Lovenox 40 mg subcu daily 7. Hypertension: On lisinopril and Lasix at home, will can we will hold the medication for now given the hypokalemia Charges/Coding Visit Charges Inpatient E&M: 15037 Init Hosp L2
[2023-05-11 19:08] LABS: Potassium 3.5 mmol/L (3.5-5.1)
[2023-05-11] MEDS: tiZANidine HCl 2 MG Tablet 4 MG PO (21:02)
[2023-05-11] MEDS: Amitriptyline 100 MG Tablet PO (21:04)
[2023-05-12] VITALS (8 sets, daily range): BP systolic 117–150; BP diastolic 67–97; PULSE 84–97; RESP 16–20; TEMP 35.9–36.7; O2SAT 92–96
[2023-05-12] MEDS: tiZANidine HCl 2 MG Tablet 4 MG PO (05:53)
[2023-05-12] MEDS: HYDROcodone Bitartrate/Apap 5/325 Tablet PO (05:53)
[2023-05-12] MEDS: Ondansetron ODT 4 MG Tablet PO (05:53)
[2023-05-12 06:55] LABS: Absolute Lymphocyte Count 2.05 X10^3/uL (0.83-4.51); Basophil% 0.7 % (0-1); Eosinophil# 0.05 X10^3/uL; Eosinophils% 0.4 % (0-5); Hematocrit 37.4 % (37-47); Hemoglobin 12.6 g/dL (12.0-15.0); Lymphocyte # 2.05 X10^3/ul (0.83-4.51); Lymphocyte % 15.1 % (19-41); Mean Corp Hgb Conc 33.7 g/dL (32-36); Mean Platelet Vol. 9.9 fl (6.2-12.0); Monocyte# 1.08 X10^3/uL; NRBC Flagged by Analyzer 0 % (0-5); Neutrophil % 73.9 % (47-70); Platelet Count 402 K/mm3 (150-450); RBC Distribution Width CV 13.3 % (11.6-14.6); RBC Distribution Width SD 43.8 fl (35.1-43.9); White Blood Count 13.5 K/mm3 (4.4-11.0)
[2023-05-12 06:56] LABS: International Normalized Ratio 1.3; Prothrombin Time (Protime)PT. 16.1 SECONDS (11.7-14.9)
[2023-05-12] MEDS: Fluticasone 0.05% 1 SPRAY NASAL.SRY 2 SPRAY NASAL (08:23)
[2023-05-12] MEDS: Menthol/Lanolin/Calamine/Znox 113 GM Tube 1 APPLIC TOPICAL ×2 (08:23→21:34)
[2023-05-12] MEDS: Enoxaparin 40 MG/0.4 ML Syringe SC (08:23)
[2023-05-12] MEDS: Escitalopram Oxalate 20 MG Tablet PO (08:24)
[2023-05-12 08:31] LABS: ALB/GLOB Ratio 0.5 RATIO (0.9-2.4); AST(SGOT) 48 U/L (15-37); Alanine Aminotransfer ALT/SGPT 27 U/L (13-56); Albumin, Serum 2.6 g/dL (3.2-5.0); Alkaline Phosphatase 120 U/L (45-117); Anion Gap 7 (5-15); BUN 15 mg/dL (7-18); Bilirubin, Direct 0.13 mg/dL (0.00-0.30); Calcium,Total 9.1 mg/dL (8.5-10.1); Chloride 106 mmol/L (98-107); Creatinine, Serum 0.79 mg/dL (0.55-1.02); EST Glomerular Filtration Rate 78 mL/min (>60); Est Glom Filt Rate - Afr Amer 95 mL/min (>60); Estimated Creatinine Clearance 55.72 ml/min; Globulin 4.9 g/dL (2.2-4.2); Glucose 124 mg/dL (74-106); Magnesium 1.8 mg/dL (1.6-2.6); Phosphorus 2.4 mg/dL (2.5-4.9); Potassium 3.4 mmol/L (3.5-5.1); Protein, Total 7.5 g/dL (6.4-8.2); Sodium Level 138 mmol/L (136-145); Thyroid Stim Hormone (TSH) 1.33 uIU/mL (0.358-3.74)
--- NOTE | 2023-05-12 10:49 | PN.HOSP_ITS ---
Reason for Visit Reason for Visit: Diagnoses Other specified viral diseases (05/11/23) Objective Data Objective Data Vital Signs: Vital Signs Temp Pulse Resp BP Pulse Ox O2 Del Method O2 Flow Rate 97.8 F 84 16 150/97 H 92 Nasal Cannula 2 05/12/23 08:21 05/12/23 08:21 05/12/23 08:21 05/12/23 08:21 05/12/23 09:14 05/12/23 09:14 05/12/23 09:14 Oxygen Flow Rate (L/min) 2 Oxygen Delivery Method Nasal Cannula Weight: 118 lb 2.684 oz Body Mass Index (BMI) 22.3 Intake & Output: Intake and Output for Last 24 Hours 05/10/23 05/11/23 05/13/23 23:59 23:59 00:59 Intake Total 2054 650 / 650 Balance 2054 650 / 650 Lab / Micro Data 05/12/23 05:51 05/12/23 05:51 Labs: Laboratory Results - last 24 hr 05/11/23 10:59: WBC 13.4 H, RBC 4.74, Hgb 14.0, Hct 41.7, MCV 88.0, MCH 29.5, MCHC 33.6, RDW Std Deviation 42.7, RDW Coeff of Alejandra 13.2, Plt Count 394, MPV 9.4, Immature Gran % (Auto) 2.000 H, Neut % (Auto) 78.4 H, Lymph % (Auto) 10.8 L , [place] % (Auto) 8.6, Eos % (Auto) 0.0, Baso % (Auto) 0.2, Absolute Neuts (auto) 10.5 H, Absolute Lymphs (auto) 1.45, Nucleated RBC % 0, Differential Comment SCANNED, Sodium 136, Potassium 2.8 L, Chloride 96 L, Carbon Dioxide 28.0, Anion Gap 12, BUN 11, Creatinine 0.82, Estim Creat Clear Calc 56.58, Est GFR (MDRD) Af Amer 90, Est GFR (MDRD) Non-Af 75, BUN/Creatinine Ratio 13.3, Glucose 136 H, Lactic Acid 2.4 H*, Calcium 9.4, Total Bilirubin 0.60, AST 41 H, ALT 22, Alkaline Phosphatase 135 H, Total Protein 8.4 H, Albumin 3.0 L, Globulin 5.4 H, Alb umin/Globulin Ratio 0.6 L, Lipase 14 05/11/23 12:55: Urine Color Yellow, Urine Clarity Clear, Urine pH 5.0, Ur Specific [place] 1.010, Urine Protein 100 H, Urine Glucose (UA) Normal, Urine Ketones 50 H, Urine Occult Blood 10 H, Urine Nitrite Negative, Urine Bilirubin Negative, Urine Urobilinogen Normal, Ur Leukocyte Esterase Negative, Urine RBC 0 SEEN, Urine WBC 0 SEEN, Ur Squamous Epith Cells 0 SEEN, Amorphous Sediment 1+, Urine Bacteria 0 SEEN, Urine Mucus 0 SEEN 05/11/23 16:09: Lactic Acid 1.4 05/11/23 18:44: Potassium 3.5 05/12/23 05:51: WBC 13.5 H, RBC 4.20, Hgb 12.6, Hct 37.4, MCV 89.0, MCH 30.0, MCHC 33.7, RDW Std Deviation 43.8, RDW Coeff of Alejandra 13.3, Plt Count 402, MPV 9.9, Immature Gran % (Auto) 1.900 H, Neut % (Auto) 73.9 H, Lymph % (Auto) 15.1 L , [place] % (Auto) 8.0, Eos % (Auto) 0.4, Baso % (Auto) 0.7, Absolute Neuts (auto) 10.0 H, Absolute Lymphs (auto) 2.05, Nucleated RBC % 0, PT 16.1 H, INR 1.3, Sodium 138, Potassium 3.4 L, Chloride 106, Carbon Dioxide 25.0, Anion Gap 7, BUN 15, Creatinine 0.79, Estim Creat Clear Calc 55.72, Est GFR (MDRD) Af Amer 95, Est GFR (MDRD) Non-Af 78, BUN/Creatinine Ratio 19.0, Glucose 124 H, Calcium 9.1, Phosphorus 2.4 L, Magnesium 1.8, Total Bilirubin 0.60, Direct Bilirubin 0.13, AST 48 H, ALT 27, Alkaline Phosphatase 120 H, Total Protein 7.5, Albumin 2.6 L, Globulin 4.9 H, Albumin/Globulin Ratio 0.5 L, TSH 1.33 Micro: Microbiology 05/11/23 11:37 Mucosa - Nasopharyngeal SARS-CoV-2, Influenza & RSV (PCR) - Final RSV Radiography Diagnostic Testing: Radiology Impression Abdomen/Pelvis CT 05/11/23 11:27 IMPRESSION: 1. Abnormal intramural edema/thickening of the distal gastric antrum wall extending to the pylorus. EGD will be very helpful for further evaluation. 2. No other suspicious acute abnormality in the abdomen and pelvis. 3. Prominent right lateral lung base atelectasis with air bronchograms. Superimposed pneumonia cannot be excluded. 4. Subpleural confluent infiltrate in the medial aspect of the left lower lobe is most likely pneumonia rather than pulmonary nodule. This is a new finding. Follow-up CT chest in one month will help clarify. 5. Cardiomegaly with new 4 mm right pericardial effusion. Chest CT 05/11/23 12:42 IMPRESSION: 1. Prominent atelectases in the right lateral lung base containing air bronchograms. Superimposed pneumonia can''t be excluded. This accounts for the new mediastinal shift when compared to 07/26/2014. 2. A couple of adjacent nodular-like infiltrates in the central aspect of the right upper lobe. This is most likely pneumonia. This is a new finding. 3. Subsegmental atelectasis in the caudal aspect of the right upper lobe. 4. Previous large pneumonia involving the lower lobes of the groundglass opacities in the upper lobes towards the apices have largely resolved. Pneumonia above are new findings. 5. Increased thoracic kyphosis due to increased number of old anterior wedge compression fractures involving T6 down to T11 vertebral bodies. 6. Cardiomegaly is unchanged but there is new 4 mm small right pericardial effusion. Electronically Signed: Thomas Portillo MD at 13:12 EST , Physical Exam Narrative Seen and examined. Patient is stated that she started having shortness of breath for 1 week along with chills and a cough and low-grade fever. Initially dry cough then having greenish thick sputum. She denied having other URI symptoms including sinus congestion nasal dripping or postnasal drip or sore throat. She also has diarrhea about 7 to 10 days about 4-5 BMs per day occasional abdominal cramping Physical exam General: Alert, Oriented x3, Cooperative HEENT: Atraumatic, PERRLA, EOMI, Normocephalic Oral: Oral mucosa dry no Gingival or Mucosal Lesions/ Ulcerations Neck: Supple, No JVD, Negative Carotid Bruits Chest wall/Lungs: Air entry diminished in bilateral lung bases. Bilateral coar se rhonchi and mild wheezing. Cardiovascular: Regular rate, Regular Rhythm, Normal S1, Normal S2, No M/G/R Abdomen: Bowel Sounds Present, Soft to palpation, Non Tender, Non-Distended. No palpable mass. : No dysuria. No renal angle tenderness. No suprapubic tenderness. Extremities: No edema, Capillary Refill Less than 3 Seconds Skin: No rashes, No breakdown Musculoskeletal: No Tenderness to Palpation of Joints or Extremities Neurological: Cranial nerves II-XII grossly intact, DTR 2+/4. No acute focal neurological deficit. Psych/Mental Status: Flat affect. Assessment & Plan Assessment/Plan (1) RSV infection: PLAN: Plan 62-year-old female with a history of fibromyalgia, bipolar disorder, rheumatoid arthritis, presents to the ED with concerns regarding ongoing diarrhea since the last 10 days, shortness of breath and features of hypokalemia at the time of presentation. Patient also had low-grade fever cough and shortness of breath for 7 to 10 days. 1. Diarrhea: Likely infectious diarrhea given in the setting of acute onset, suspected viral. Supportive IV fluid and correction of electrolytes. Intake and output. Patient is stated she did not had any recent antibiotic. Enteric bacteriology panel, C. difficile stool for Giardia ordered. Soft diet. -CT scan suggestive of thickening of the distal gastric antrum, will consult GI as an outpatient for further evaluation. Could be in the setting of acute gastroenteritis. No features of colitis 2. Right middle lobe pneumonia and remnant right upper lobe pneumonia probably viral with secondary bacterial infection: Chest CT was individually reviewed. Shows right middle lobe infiltrate with air bronchograms and a small subsegmental atelectasis in the right upper lobe. No mass or pleural effusion. Mediastinum unremarkable. Clinically it seems patient has bacterial superinfection therefore started on IV Unasyn and Zithromax. Patient also states sometimes she chokes/coughs while eating therefore speech therapy to evaluate for possible aspiration. DuoNeb, incentive spirometry, Pep and Mucinex DM. Oxygen to keep pulse ox 90%. 3. Hypokalemia: Related to acute diarrhea and fluid loss. Potassium replacem ent. Monitor magnesium and phosphorus. 4. Bipolar disorder: Continue Lexapro 5. Fibromyalgia: Continue home pain medications including Zanaflex and hydrocodone 6. DVT prophylaxis: Lovenox 40 mg subcu daily 7. Hypertension: On lisinopril and Lasix at home, hold the medication for now given the hypokalemia Microbiology Past 72 Hours 05/11/23 11:37 Mucosa - Nasopharyngeal SARS-CoV-2, Influenza & RSV (PCR) - Final RSV Laboratory Results 05/11/23 12:55: Urine Color Yellow, Urine Clarity Clear, Urine pH 5.0, Ur Specific [place] 1.010, Urine Protein 100 H, Urine Glucose (UA) Normal, Urine Ketones 50 H, Urine Occult Blood 10 H, Urine Nitrite Negative, Urine Bilirubin Negative, Urine Urobilinogen Normal, Ur Leukocyte Esterase Negative, Urine RBC 0 SEEN, Urine WBC 0 SEEN, Ur Squamous Epith Cells 0 SEEN, Amorphous Sediment 1+, Urine Bacteria 0 SEEN, Urine Mucus 0 SEEN 05/11/23 16:09: Lactic Acid 1.4 05/11/23 18:44: Potassium 3.5 05/12/23 05:51: WBC 13.5 H, RBC 4.20, Hgb 12.6, Hct 37.4, MCV 89.0, MCH 30.0, MCHC 33.7, RDW Std Deviation 43.8, RDW Coeff of Alejandra 13.3, Plt Count 402, MPV 9.9, Immature Gran % (Auto) 1.900 H, Neut % (Auto) 73.9 H, Lymph % (Auto) 15.1 L , [place] % (Auto) 8.0, Eos % (Auto) 0.4, Baso % (Auto) 0.7, Absolute Neuts (auto) 10.0 H, Absolute Lymphs (auto) 2.05, Nucleated RBC % 0, PT 16.1 H, INR 1.3, Sodium 138, Potassium 3.4 L, Chloride 106, Carbon Dioxide 25.0, Anion Gap 7, BUN 15, Creatinine 0.79, Estim Creat Clear Calc 55.72, Est GFR (MDRD) Af Amer 95, Est GFR (MDRD) Non-Af 78, BUN/Creatinine Ratio 19.0, Glucose 124 H, Calcium 9.1, Phosphorus 2.4 L, Magnesium 1.8, Total Bilirubin 0.60, Direct Bilirubin 0.13, AST 48 H, ALT 27, Alkaline Phosphatase 120 H, Total Protein 7.5, Albumin 2.6 L, Globulin 4.9 H, Albumin/Globulin Ratio 0.5 L, TSH 1.33 Clinical Impression(s) from Imaging Studies Abdomen/Pelvis CT 05/11/23 11:27 IMPRESSION: 1. Abnormal intramural edema/thickening of the distal gastric antrum wall extending to the pylorus. EGD will be very helpful for further evaluation. 2. No other suspicious acute abnormality in the abdomen and pelvis. 3. Prominent right lateral lung base atelectasis with air bronchograms. Superimposed pneumonia cannot be excluded. 4. Subpleural confluent infiltrate in the medial aspect of the left lower lobe is most likely pneumonia rather than pulmonary nodule. This is a new finding. Follow-up CT chest in one month will help clarify. 5. Cardiomegaly with new 4 mm right pericardial effusion. Chest CT 05/11/23 12:42 IMPRESSION: 1. Prominent atelectases in the right lateral lung base containing air bronchograms. Superimposed pneumonia can''t be excluded. This accounts for the new mediastinal shift when compared to 07/26/2014. 2. A couple of adjacent nodular-like infiltrates in the central aspect of the right upper lobe. This is most likely pneumonia. This is a new finding. 3. Subsegmental atelectasis in the caudal aspect of the right upper lobe. 4. Previous large pneumonia involving the lower lobes of the groundglass opacities in the upper lobes towards the apices have largely resolved. Pneumonia above are new findings. 5. Increased thoracic kyphosis due to increased number of old anterior wedge compression fractures involving T6 down to T11 vertebral bodies. 6. Cardiomegaly is unchanged but there is new 4 mm small right pericardial effusion. Electronically Signed: Thomas Portillo MD at 13:12 EST , Charges/Coding Visit Charges Inpatient E&M: 87172 Subs Hosp L2
[2023-05-12] MEDS: Ampicillin/Sulbactam 3 GM in 0.9% Normal Saline (100mL MB+) 100 ML IV ×3 (11:46→23:15)
[2023-05-12] MEDS: Azithromycin 250 MG Tablet 500 MG PO (11:48)
[2023-05-12] MEDS: guaiFENesin/D-Methorphan TAB.SR.12H 2 TABLET PO ×2 (11:48→21:35)
[2023-05-12] MEDS: Magnesium Sulfate 2 GM in Dextrose 5%-Water (100mL Bag) 100 ML IV (15:35)
[2023-05-12] MEDS: Lactated Ringers 1,000 ML 100 ML IV (15:35)
[2023-05-12] MEDS: Na Biphos/Potassium Phosphate PACKET 1 PACKET PO ×2 (15:37→21:35)
[2023-05-12] MEDS: Amitriptyline 25 MG Tablet 50 MG PO (21:34)
[2023-05-12] MEDS: 0.9% Saline Lock 10 ML Syringe IV (23:16)
[2023-05-13] VITALS (7 sets, daily range): BP systolic 126–153; BP diastolic 67–82; PULSE 87–94; RESP 16–18; TEMP 35.7–38.1; O2SAT 96–100
[2023-05-13] MEDS: hydrOXYzine PAM 25 MG Capsule PO ×2 (05:03→13:41)
[2023-05-13] MEDS: Ampicillin/Sulbactam 3 GM in 0.9% Normal Saline (100mL MB+) 100 ML IV ×4 (05:03→23:53)
[2023-05-13] MEDS: Acetaminophen 325 MG Tablet 650 MG PO (05:03)
[2023-05-13] MEDS: Na Biphos/Potassium Phosphate PACKET 1 PACKET PO ×2 (05:04→13:41)
[2023-05-13 05:06] LABS: Absolute Lymphocyte Count 1.47 X10^3/uL (0.83-4.51); Absolute Neutrophil Count 9.5 X10^3/uL (2.0-7.7); Basophil# 0.07 X10^3/uL; Basophil% 0.6 % (0-1); Eosinophil# 0.13 X10^3/uL; Eosinophils% 1.1 % (0-5); Hemoglobin 10.7 g/dL (12.0-15.0); Lymphocyte # 1.47 X10^3/ul (0.83-4.51); Mean Corp Hgb Conc 32.4 g/dL (32-36); Mean Corpuscular Hgb 29.4 pg (27.0-32.0); Mean Corpuscular Volume 90.7 fL (81-99); Mean Platelet Vol. 9.5 fl (6.2-12.0); Monocyte# 0.91 X10^3/uL; Monocyte% 7.4 % (0-10); NRBC Flagged by Analyzer 0 % (0-5); Neutrophil % 77.1 % (47-70); Platelet Count 351 K/mm3 (150-450); RBC Distribution Width CV 13.3 % (11.6-14.6); RBC Distribution Width SD 44.5 fl (35.1-43.9); Red Blood Count 3.64 M/mm3 (4.2-5.4); White Blood Count 12.3 K/mm3 (4.4-11.0)
[2023-05-13 05:23] LABS: Anion Gap 6 (5-15); BUN 12 mg/dL (7-18); BUN/Creat Ratio 17.2 RATIO (10-20); Calcium,Total 8.7 mg/dL (8.5-10.1); Chloride 106 mmol/L (98-107); EST Glomerular Filtration Rate 91 mL/min (>60); Est Glom Filt Rate - Afr Amer 110 mL/min (>60); Estimated Creatinine Clearance 62.88 ml/min; Glucose 119 mg/dL (74-106); Magnesium 1.8 mg/dL (1.6-2.6); Phosphorus 3.1 mg/dL (2.5-4.9); Potassium 3.3 mmol/L (3.5-5.1); Sodium Level 140 mmol/L (136-145)
[2023-05-13] MEDS: Enoxaparin 40 MG/0.4 ML Syringe SC (08:44)
[2023-05-13] MEDS: Fluticasone 0.05% 1 SPRAY NASAL.SRY 2 SPRAY NASAL (08:44)
[2023-05-13] MEDS: Menthol/Lanolin/Calamine/Znox 113 GM Tube 1 APPLIC TOPICAL ×2 (08:44→20:10)
[2023-05-13] MEDS: guaiFENesin/D-Methorphan TAB.SR.12H 2 TABLET PO ×2 (08:44→20:11)
[2023-05-13] MEDS: Azithromycin 250 MG Tablet 500 MG PO (08:45)
[2023-05-13] MEDS: Potassium Chloride Oral Tablet 20 MEQ 40 MEQ PO (10:58)
--- NOTE | 2023-05-13 13:30 | CASEMGMT ---
RN CM Face to Face with patient for initial transition planning/care coordination assessment. RN CM introduced self and role at [facility]. Patient lying in bed, alert and oriented. Patient willing to participate in assessment and is able to answer all questions appropriately. Care providers, pharmacy, and demographics verified. PCP: [facility] Specialists: Alex Molina Pharmacy: [facility] Insurance: [facility] Dual, [place] Prescription Benefit: yes Living Will/HPOA: yes, significant other Trey Ortiz LNOK: significant other Living Arrangements: Patient lives with significant other in a mobile home with 3 steps and railing to enter the home. Patient is independent at home. Transportation: significant other DME/HHC: Patient has cane and shower chair at home, may benefit from walker at discharge. No previous HHC or SNF, will montior progress with therapy Patient wishes to discharge home, will monitor progress with therapy for possible HHC vs SNF. Patient states he has no further needs or concerns at this time. CM to follow for discharge planning needs that may arise. Disposition Plan: TBD, anticipate HHC vs SNF pending progress with therapy, will monitor for walker at discharge. Fanny GARCIA, RN, CM
--- NOTE | 2023-05-13 14:44 | PN.HOSP_ITS ---
Reason for Visit Reason for Visit: Diagnoses Other specified viral diseases (05/11/23) Objective Data Objective Data Vital Signs: Vital Signs Temp Pulse Resp BP Pulse Ox O2 Del Method O2 Flow Rate 99.1 F 87 16 126/78 H 100 Nasal Cannula 2 05/13/23 08:42 05/13/23 08:42 05/13/23 08:42 05/13/23 08:42 05/13/23 08:42 05/13/23 08:42 05/13/23 08:42 Oxygen Flow Rate (L/min) 2 Oxygen Delivery Method Nasal Cannula Weight: 118 lb 2.684 oz Body Mass Index (BMI) 22.3 Intake & Output: Intake and Output for Last 24 Hours 05/11/23 05/12/23 05/13/23 22:59 23:59 23:59 Intake Total 1556 / 1556 Balance 1556 / 1556 Medical Nutrition Assessment Dietitian: Malnutrition Criteria Met Start: 05/12/23 14:43 Freq: Status: Active Protocol: Document 05/12/23 14:44 RMA (Rec: 05/12/23 14:44 RMA [id number]) Nutrition Malnutrition Evidence of Malnutrition Exists Yes Malnutrition (severe): Acute Illness/Injury Evidenced By Suboptimal Energy Intake ( Severe),Weight Loss (Severe) Clinical Problem Acute Disease or Injury Related Malnutrition Etiology severe protein-calorie malnutrition in the context of acute illness related to inadequate oral intake and altered GI function/diarrhea Signs/Symptoms as evidenced by ~5-6% unintentional weight loss x 2 weeks and PO meeting less than 50% estimated nutrition needs x 2 weeks Status Active Problem Recommendation Dietitian Recommendations/Changes Continue liberalized regular diet as tolerated. Will add 240mL ensure clear BID w/ breakfast and dinner tray. Will add magic cup w/ lunch. Adjust ONS as needed to optimize PO and replete energy . Lab / Micro Data 05/13/23 04:50 05/13/23 04:50 Labs: Laboratory Results - last 24 hr 05/13/23 04:50: WBC 12.3 H, RBC 3.64 L, Hgb 10.7 L, Hct 33.0 L, MCV 90.7, MCH 29.4, MCHC 32.4, RDW Std Deviation 44.5 H, RDW Coeff of Alejandra 13.3, Plt Count 351, MPV 9.5, Immature Gran % (Auto) 1.800 H, Neut % (Auto) 77.1 H, Lymph % (Auto) 12.0 L, [place] % (Auto) 7.4, Eos % (Auto) 1.1, Baso % (Auto) 0.6, Absolute Neuts (auto) 9.5 H, Absolute Lymphs (auto) 1.47, Nucleated RBC % 0, Sodium 140, Potass ium 3.3 L, Chloride 106, Carbon Dioxide 28.0, Anion Gap 6, BUN 12, Creatinine 0.70, Estim Creat Clear Calc 62.88, Est GFR (MDRD) Af Amer 110, Est GFR (MDRD) Non-Af 91, BUN/Creatinine Ratio 17.2, Glucose 119 H, Calcium 8.7, Phosphorus 3.1, Magnesium 1.8 Micro: Microbiology 05/11/23 11:37 Mucosa - Nasopharyngeal SARS-CoV-2, Influenza & RSV (PCR) - Final RSV Physical Exam Narrative Seen and examined. Patient feels improvement in shortness of breath and cough. Patient was admitted with shortness of breath for 1 week along with chills and a cough and low-grade fever. Initially dry cough then having greenish thick sputum. She also has diarrhea about 7 to 10 days about 4-5 BMs per day occ asional abdominal cramping Physical exam General: Alert, Oriented x3, Cooperative HEENT: Atraumatic, PERRLA, EOMI, Normocephalic Oral: Oral mucosa dry no Gingival or Mucosal Lesions/ Ulcerations Neck: Supple, No JVD, Negative Carotid Bruits Chest wall/Lungs: Air entry diminished in bilateral lung bases. Cardiovascular: Regular r Wheezing and rhonchi are much decreased. On 2 L of oxygen.ate, Regular Rhythm, Normal S1, Normal S2, No M/G/R Abdomen: Bowel Sounds Present, Soft to palpation, Non Tender, Non-Distended. No palpable mass. : No dysuria. No renal angle tenderness. No suprapubic tenderness. Extremities: No edema, Capillary Refill Less than 3 Seconds Skin: No rashes, No breakdown Musculoskeletal: No Tenderness to Palpation of Joints or Extremities. Muscle strength 4+/5 at knees and hip joints. Neurological: Cranial nerves II-XII grossly intact, DTR 2+/4. No acute focal neurological deficit. Psych/Mental Status: Flat affect. Assessment & Plan Assessment/Plan (1) RSV infection: PLAN: Plan 62-year-old female with a history of fibromyalgia, bipolar disorder, rheumatoid arthritis, presents to the ED with concerns regarding ongoing diarrhea since the last 10 days, shortness of breath and features of hypokalemia at the time of presentation. Patient also had low-grade fever cough and shortness of breath for 7 to 10 days. 1. Diarrhea: Likely infectious diarrhea given in the setting of acute onset, suspected viral. Supportive IV fluid and correction of electrolytes. Intake and output. Patient is stated she did not had any recent antibiotic. Enteric bacteriology panel, C. difficile stool for Giardia ordered. Soft diet. -CT scan suggestive of thickening of the distal gastric antrum, will consult GI as an outpatient for further evaluation. Could be in the setting of acute gastroenteritis. No features of colitis 05/12: Stool studies are pending probably she did not had bowel movement after being admitted. Diarrhea resolved. 2. Right middle lobe pneumonia and remnant right upper lobe pneumonia due to RSV pneumonia with secondary bacterial infection: Chest CT was individually reviewed. Shows right middle lobe infiltrate with air bronchograms and a small subsegmental atelectasis in the right upper lobe. No mass or pleural effusion. Mediastinum unremarkable. Clinically it seems patient has bacterial superinfection therefore started on IV Unasyn and Zithromax. Patient also states sometimes she chokes/coughs while eating therefore speech therapy to evaluate for possible aspiration. DuoNeb, incentive spirometry, Pep and Mucinex DM. Oxygen to keep pulse ox 90%. 05/08: Patient's symptoms are better. But still weak. PT and OT ordered. Continue IV antibiotic. 3. Hypokalemia: Related to acute diarrhea and fluid loss. Potassium repl acement. 05/12: Serum magnesium 1.8 and normal. Phosphorus 3.1 in normal range. 4. Bipolar disorder: Continue Lexapro 5. Fibromyalgia: Continue home pain medications including Zanaflex and hydroco done 6. DVT prophylaxis: Lovenox 40 mg subcu daily 7. Hypertension: On lisinopril and Lasix at home, hold the medication for now given the hypokalemia Clinical Impression(s) from Imaging Studies Abdomen/Pelvis CT 05/11/23 11:27 IMPRESSION: 1. Abnormal intramural edema/thickening of the distal gastric antrum wall extending to the pylorus. EGD will be very helpful for further evaluation. 2. No other suspicious acute abnormality in the abdomen and pelvis. 3. Prominent right lateral lung base atelectasis with air bronchograms. Superimposed pneumonia cannot be excluded. 4. Subpleural confluent infiltrate in the medial aspect of the left lower lobe is most likely pneumonia rather than pulmonary nodule. This is a new finding. Follow-up CT chest in one month will help clarify. 5. Cardiomegaly with new 4 mm right pericardial effusion. Chest CT 05/11/23 12:42 IMPRESSION: 1. Prominent atelectases in the right lateral lung base containing air bronchograms. Superimposed pneumonia can''t be excluded. This accounts for the new mediastinal shift when compared to 07/26/2014. 2. A couple of adjacent nodular-like infiltrates in the central aspect of the right upper lobe. This is most likely pneumonia. This is a new finding. 3. Subsegmental atelectasis in the caudal aspect of the right upper lobe. 4. Previous large pneumonia involving the lower lobes of the groundglass opacities in the upper lobes towards the apices have largely resolved. Pneumonia above are new findings. 5. Increased thoracic kyphosis due to increased number of old anterior wedge compression fractures involving T6 down to T11 vertebral bodies. 6. Cardiomegaly is unchanged but there is new 4 mm small right pericardial effusion. Electronically Signed: Thomas Portillo MD at 13:12 EST , Charges/Coding Visit Charges Inpatient E&M: 33190 Subs Hosp L2
[2023-05-13] MEDS: HYDROcodone Bitartrate/Apap 5/325 Tablet PO (17:18)
[2023-05-13] MEDS: Amitriptyline 25 MG Tablet 50 MG PO (20:14)
[2023-05-13] MEDS: Calcium Carbonate 500 MG Tablet 1000 MG PO (21:14)
[2023-05-14 04:45] VITALS: BP 147/85; PULSE 101; RESP 18; TEMP 38.2; O2SAT 97
[2023-05-14] MEDS: hydrOXYzine PAM 25 MG Capsule PO ×2 (05:08→15:07)
[2023-05-14] MEDS: Acetaminophen 325 MG Tablet 650 MG PO ×3 (05:17→21:02)
[2023-05-14] MEDS: Ampicillin/Sulbactam 3 GM in 0.9% Normal Saline (100mL MB+) 100 ML IV (05:20)
[2023-05-14 07:36] VITALS: O2SAT 96
[2023-05-14 08:04] LABS: Basophil# 0.07 X10^3/uL; Basophil% 0.5 % (0-1); Eosinophil# 0.13 X10^3/uL; Eosinophils% 0.9 % (0-5); Hematocrit 37.2 % (37-47); Hemoglobin 11.9 g/dL (12.0-15.0); Mean Corpuscular Hgb 29.6 pg (27.0-32.0); Mean Corpuscular Volume 92.5 fL (81-99); Mean Platelet Vol. 9.8 fl (6.2-12.0); Monocyte# 0.95 X10^3/uL; Monocyte% 6.7 % (0-10); NRBC Flagged by Analyzer 0 % (0-5); Neutrophil # 11.02 X10^3/uL (2.7-7.7); Neutrophil % 78.2 % (47-70); Platelet Count 460 K/mm3 (150-450); RBC Distribution Width CV 13.3 % (11.6-14.6); RBC Distribution Width SD 45.9 fl (35.1-43.9); Red Blood Count 4.02 M/mm3 (4.2-5.4); White Blood Count 14.1 K/mm3 (4.4-11.0)
[2023-05-14 08:24] LABS: Anion Gap 7 (5-15); BUN 8 mg/dL (7-18); Calcium,Total 9.4 mg/dL (8.5-10.1); Chloride 106 mmol/L (98-107); Creatinine, Serum 0.66 mg/dL (0.55-1.02); EST Glomerular Filtration Rate 96 mL/min (>60); Est Glom Filt Rate - Afr Amer 116 mL/min (>60); Estimated Creatinine Clearance 66.69 ml/min; Glucose 130 mg/dL (74-106); Potassium 3.7 mmol/L (3.5-5.1); Sodium Level 140 mmol/L (136-145)
[2023-05-14 08:58] VITALS: BP 155/90; PULSE 103; RESP 18; TEMP 37; O2SAT 92
[2023-05-14] MEDS: Menthol/Lanolin/Calamine/Znox 113 GM Tube 1 APPLIC TOPICAL (09:00)
[2023-05-14] MEDS: Enoxaparin 40 MG/0.4 ML Syringe SC (09:00)
[2023-05-14] MEDS: Azithromycin 250 MG Tablet 500 MG PO (09:06)
[2023-05-14] MEDS: Potassium Chloride Oral Tablet 20 MEQ 40 MEQ PO (09:06)
[2023-05-14] MEDS: HYDROcodone Bitartrate/Apap 5/325 Tablet PO (09:06)
--- NOTE | 2023-05-14 10:43 | RAD_ITS ---
STUDY: X-RAY CHEST REASON FOR EXAM: Female, 62 years old. SOB, FEVER TECHNIQUE: PA and lateral views of the chest. COMPARISON: None. FINDINGS: EKG leads overlie the chest Diffuse air space opacifications throughout the right lung with blunting of the right costophrenic angle suggests a likely combination of infiltrate effusion and atelectasis, follow-up recommended to a resolution. Left lung is clear aside from perihilar opacification suggesting atelectasis or early infiltrate. No demonstrated effusion. Normal size heart. Normal mediastinum and madelyn. Normal visualized pulmonary arteries. Normal visualized aortic arch and descending thoracic aorta. There is a dextroscoliosis of the thoracic spine. Evidence of previous right rotator cuff repair There is no demonstrated abnormality of the visualized soft tissue structures of the upper abdomen. RAD/Chest PA and Lateral IMPRESSION: Diffuse airspace opacifications in the right lung field with blunting of the right costophrenic angle suggests a likely combination of infiltrate atelectasis and effusion. Follow-up recommended to ensure resolution Left perihilar atelectasis or early infiltrate without effusion Electronically Signed: Alvino Fisher MD at 13:08 EDT ,
[2023-05-14] MEDS: Piperacil/Tazobactam 3.375 GM in 0.9% Normal Saline (50mL MB+) 50 ML IV ×2 (11:09→21:10)
[2023-05-14] MEDS: Na Biphos/Potassium Phosphate PACKET 1 PACKET PO (15:08)
[2023-05-14] MEDS: Calcium Carbonate 500 MG Tablet 1000 MG PO ×2 (16:45→23:00)
--- NOTE | 2023-05-14 17:03 | PCM.PN.HOSP ---
Reason for Visit Reason for Visit: Diagnoses Other specified viral diseases (05/11/23) Objective Data Objective Data Vital Signs: Vital Signs Temp Pulse Resp BP Pulse Ox O2 Del Method O2 Flow Rate 98.6 F 103 H 18 155/90 H 92 Nasal Cannula 2 05/14/23 08:58 05/14/23 08:58 05/14/23 08:58 05/14/23 08:58 05/14/23 08:58 05/14/23 08:58 05/14/23 08:58 Oxygen Flow Rate (L/min) 2 Oxygen Delivery Method Nasal Cannula Weight: 118 lb 2.684 oz Body Mass Index (BMI) 22.3 Intake & Output: Intake and Output for Last 24 Hours 05/12/23 05/13/23 05/14/23 23:59 23:59 23:59 Intake Total 2107 494 / 494 Balance 2107 494 / 494 Medical Nutrition Assessment Dietitian: Malnutrition Criteria Met Start: 05/12/23 14:43 Freq: Status: Active Protocol: Document 05/12/23 14:44 RMA (Rec: 05/12/23 14:44 RMA [id number]) Nutrition Malnutrition Evidence of Malnutrition Exists Yes Malnutrition (severe): Acute Illness/Injury Evidenced By Suboptimal Energy Intake ( Severe),Weight Loss (Severe) Clinical Problem Acute Disease or Injury Related Malnutrition Etiology severe protein-calorie malnutrition in the context of acute illness related to inadequate oral intake and altered GI function/diarrhea Signs/Symptoms as evidenced by ~5-6% unintentional weight loss x 2 weeks and PO meeting less than 50% estimated nutrition needs x 2 weeks Status Active Problem Recommendation Dietitian Recommendations/Changes Continue liberalized regular diet as tolerated. Will add 240mL ensure clear BID w/ breakfast and dinner tray. Will add magic cup w/ lunch. Adjust ONS as needed to optimize PO and replete energy . Lab / Micro Data 05/14/23 07:45 05/14/23 07:45 Labs: Laboratory Results - last 24 hr 05/14/23 07:45: WBC 14.1 H, RBC 4.02 L, Hgb 11.9 L, Hct 37.2, MCV 92.5, MCH 29.6, MCHC 32.0, RDW Std Deviation 45.9 H, RDW Coeff of Alejandra 13.3, Plt Count 460 H, MPV 9.8, Immature Gran % (Auto) 1.700 H, Neut % (Auto) 78.2 H, Lymph % (Auto) 12.0 L, [place] % (Auto) 6.7, Eos % (Auto) 0.9, Baso % (Auto) 0.5, Absolute Neuts (auto) 11.0 H, Absolute Lymphs (auto) 1.70, Nucleated RBC % 0, Sodium 140, Potassium 3.7, Chloride 106, Carbon Dioxide 27.0, Anion Gap 7, BUN 8, Creatinine 0.66, Estim Creat Clear Calc 66.69, Est GFR (MDRD) Af Amer 116, Est GFR (MDRD) Non-Af 96, BUN/Creatinine Ratio 12.0, Glucose 130 H, Calcium 9.4 05/14/23 10:04: MRSA (PCR) Cancelled Micro: Microbiology 05/14/23 10:04 Nasal Secretion MRSA (PCR) - Final 05/13/23 15:06 Stool Enteric Bacteriology - Final 05/13/23 15:06 Stool Clostridioides difficile (PCR) - Final 05/11/23 11:37 Mucosa - Nasopharyngeal SARS-CoV-2, Influenza & RSV (PCR) - Final RSV Radiography Diagnostic Testing: Radiology Impression Chest X-Ray 05/14/23 10:43 IMPRESSION: Diffuse airspace opacifications in the right lung field with blunting of the right costophrenic angle suggests a likely combination of infiltrate atelectasis and effusion. Follow-up recommended to ensure resolution Left perihilar atelectasis or early infiltrate without effusion Electronically Signed: Alvino Fisher MD at 13:08 EDT , Physical Exam Narrative Seen and examined. Overnight patient spiked fever Tmax 100.5 Fahrenheit. Lab work culture shows more than 1% immature granulocytes with increasing leukocytosis. Repeat chest x-ray done. Patient looks more short of breath. Patient was admitted with shortness of breath for 1 week along with chills and a cough and low-grade fever. Initially dry cough then having greenish thick sputum. She also has diarrhea about 7 to 10 days about 4-5 BMs per day occasional abdominal cramping Physical exam General: Alert, Oriented x3, Cooperative HEENT: Atraumatic, PERRLA, EOMI, Normocephalic Oral: Oral mucosa dry no Gingival or Mucosal Lesions/ Ulcerations Neck: Supple, No JVD, Negative Carotid Bruits Chest wall/Lungs: Air entry diminished in bilateral lung bases. Air entry diminished in right lung base. Bilateral coarse crepitations and wheezing. Cardiovascular: Regular Regular Rhythm, Normal S1, Normal S2, No M/G/R Abdomen: Bowel Sounds Present, Soft to palpation, Non Tender, Non-Distended. No palpable mass. : No dysuria. No renal angle tenderness. No suprapubic tenderness. Extremities: No edema, Capillary Refill Less than 3 Seconds Skin: No rashes, No breakdown Musculoskeletal: No Tenderness to Palpation of Joints or Extremities. Muscle strength 4+/5 at knees and hip joints. Neurological: Cranial nerves II-XII grossly intact, DTR 2+/4. No acute focal neurological deficit. Psych/Mental Status: Flat affect. Const alert and oriented x3 Constitutional Narrative: Malnourished, Orientation / Consciousness: lethargic HEENT normocephalic Eyes PERRL Neck no lymphadenopathy Resp normal respiratory effort Cardio regular rate and regular rhythm GI normal to inspection, nondistended, normoactive bowel sounds and soft to palpation Extremity normal to inspection, full ROM and no clubbing, cyanosis or edema Neuro oriented x3, CN's II-XII intact bilaterally and moves all extremities Psych affect normal Assessment & Plan Assessment/Plan (1) RSV infection: PLAN: Plan 62-year-old female with a history of fibromyalgia, bipolar disorder, rheumatoid arthritis, presents to the ED with concerns regarding ongoing diarrhea since the last 10 days, shortness of breath and features of hypokalemia at the time of presentation. Patient also had low-grade fever cough and shortness of breath for 7 to 10 days. 1. Diarrhea: Likely infectious diarrhea given in the setting of acute onset, suspected viral. Supportive IV fluid and correction of electrolytes. Intake and output. Patient is stated she did not had any recent antibiotic. Enteric bacteriology panel, C. difficile stool for Giardia ordered. Soft diet. -CT scan suggestive of thickening of the distal gastric antrum, will consult GI as an outpatient for further evaluation. Could be in the setting of acute gastroenteritis. No features of colitis 05/12: Stool studies are pending probably she did not had bowel movement after being admitted. Diarrhea resolved. 2. Right middle lobe pneumonia and remnant right upper lobe pneumonia due to RSV pneumonia with secondary bacterial infection: Chest CT was individually reviewed. Shows right middle lobe infiltrate with air bronchograms and a small subsegmental atelectasis in the right upper lobe. No mass or pleural effusion. Mediastinum unremarkable. Clinically it seems patient has bacterial superinfection therefore started on IV Unasyn and Zithromax. Patient also states sometimes she chokes/coughs while eating therefore speech therapy to evaluate for possible aspiration. DuoNeb, incentive spirometry, Pep and Mucinex DM. Oxygen to keep pulse ox 90%. 05/11: Patient's symptoms are better. But still weak. PT and OT ordered. Continue IV antibiotic. 05/13: Patient symptoms of shortness of breath worse with increasing temperature and leukocytosis and imaging pneumocytes. Repeat chest x-ray was done and compared with the CT chest during admission. Looks worsening of the infiltrate/consolidation in right lung with small effusion. IV antibiotic broadened to IV Zosyn. Discontinue Unasyn. Will request ID consult. Lasix 40 mg IV 1 dose now and then repeat tomorrow. Will reevaluate. 3. Hypokalemia: Related to acute diarrhea and fluid loss. Potassium replacement. 05/12: Serum magnesium 1.8 and normal. Phosphorus 3.1 in normal range. 05/13: Hypokalemia corrected. 4. Bipolar disorder: Continue Lexapro 5. Fibromyalgia: Continue home pain medications including Zanaflex and hydrocodone 6. DVT prophylaxis: Lovenox 40 mg subcu daily 7. Hypertension: On lisinopril and Lasix at home, hold the medication for now given the hypokalemia Clinical Impression(s) from Imaging Studies Abdomen/Pelvis CT 05/11/23 11:27 IMPRESSION: 1. Abnormal intramural edema/thickening of the distal gastric antrum wall extending to the pylorus. EGD will be very helpful for further evaluation. 2. No other suspicious acute abnormality in the abdomen and pelvis. 3. Prominent right lateral lung base atelectasis with air bronchograms. Superimposed pneumonia cannot be excluded. 4. Subpleural confluent infiltrate in the medial aspect of the left lower lobe is most likely pneumonia rather than pulmonary nodule. This is a new finding. Follow-up CT chest in one month will help clarify. 5. Cardiomegaly with new 4 mm right pericardial effusion. Chest CT 05/11/23 12:42 IMPRESSION: 1. Prominent atelectases in the right lateral lung base containing air bronchograms. Superimposed pneumonia can''t be excluded. This accounts for the new mediastinal shift when compared to 07/26/2014. 2. A couple of adjacent nodular-like infiltrates in the central aspect of the right upper lobe. This is most likely pneumonia. This is a new finding. 3. Subsegmental atelectasis in the caudal aspect of the right upper lobe. 4. Previous large pneumonia involving the lower lobes of the groundglass opacities in the upper lobes towards the apices have largely resolved. Pneumonia above are new findings. 5. Increased thoracic kyphosis due to increased number of old anterior wedge compression fractures involving T6 down to T11 vertebral bodies. 6. Cardiomegaly is unchanged but there is new 4 mm small right pericardial effusion. Electronically Signed: Thomas Portillo MD at 13:12 EST , Charges/Coding Addendum Addendum: Total time of the visit including total time spent in counseling or coordination of care, (more than 50% of the total time, spent in obtaining medical information from nurses and other ancillary care providers,explaining to the patient about labs, imaging, diagnosis and management of active complex medical conditions), repeat chest x-ray, ID consult request, review of labs and imaging and worsening of pneumonia is 40 minutes. Visit Charges Inpatient E&M: 20939 Subs Hosp L3
[2023-05-14 17:04] VITALS: BP 156/78; PULSE 104; RESP 18; TEMP 37.6; O2SAT 96
[2023-05-14] MEDS: tiZANidine HCl 2 MG Tablet 4 MG PO (17:13)
[2023-05-14] MEDS: Furosemide 40 MG/4 ML Vial IV (17:14)
[2023-05-14] MEDS: Vancomycin HCl 750 MG in 0.9% Normal Saline (250mL Bag) 250 ML 250 MG IV (18:25)
--- NOTE | 2023-05-14 18:33 | PCM.RX.CS ---
Consult Antibiotic Management Pharmacy has been consulted to manage selected antibiotic: Vancomycin Type of Intervention Type of Consult: New start Suspected Infection Suspected Infection: Pneumonia Labs Labs: Sodium 140 mmol/L (136-145) 05/14/23 07:45 Potassium 3.7 mmol/L (3.5-5.1) 05/14/23 07:45 Chloride 106 mmol/L (98-107) 05/14/23 07:45 Carbon Dioxide 27.0 mmol/L (21.0-32.0) 05/14/23 07:45 Anion Gap 7 (5-15) 05/14/23 07:45 BUN 8 mg/dL (7-18) 05/14/23 07:45 Creatinine 0.66 mg/dL (0.55-1.02) 05/14/23 07:45 Est GFR (MDRD) Af Amer 116 mL/min (>60) 05/14/23 07:45 Est GFR (MDRD) Non-Af 96 mL/min (>60) 05/14/23 07:45 BUN/Creatinine Ratio 12.0 RATIO (10-20) 05/14/23 07:45 Glucose 130 mg/dL (74-106) H 05/14/23 07:45 Microbiology Microbiology: Microbiology 05/14/23 10:04 Nasal Secretion MRSA (PCR) - Final 05/13/23 15:06 Stool Enteric Bacteriology - Final 05/13/23 15:06 Stool Clostridioides difficile (PCR) - Final 05/11/23 11:37 Mucosa - Nasopharyngeal SARS-CoV-2, Influenza & RSV (PCR) - Final RSV Dosing Weight Weight used for dosin.6 kg Estimated Creatinine Clearance Estimated Creatinine Clearance: 66.7ML/MIN Goal Trough Goal Trough: 15-20 mcg/mL Pharmacy Plan for Drug Dosing Pharmacy Plan for Drug Dosing: Give initial standard dose of 750mg IV x1, then continue with 500mg IV q12h per [facility] dosing protocol. Will check a trough before the 4th total dose. Pharmacy Service will continue to monitor and adjust dosing as required. Follow-Up Labs Follow-Up Labs: Trough: Vancomycin Date/Time Labs Ordered Labs to be done on [date and time ordered]: 05/16/23 05:30
[2023-05-14 20:05] VITALS: RESP 18
[2023-05-14] MEDS: Ipratropium/Albuterol Sulfate 3 ML AMPUL.NEB INHALATION (20:05)
[2023-05-14] MEDS: Amitriptyline 25 MG Tablet PO (21:05)
[2023-05-14 21:50] VITALS: BP 150/97; PULSE 99; RESP 20; TEMP 36.7; O2SAT 96
[2023-05-15 05:00] VITALS: BP 153/99; PULSE 100; RESP 20; TEMP 36.2; O2SAT 94
[2023-05-15] MEDS: Vancomycin IV 500 MG/100 ML BAG 100 MG IV (05:19)
[2023-05-15] MEDS: Piperacil/Tazobactam 3.375 GM in 0.9% Normal Saline (50mL MB+) 50 ML IV ×3 (06:39→23:04)
[2023-05-15 07:02] LABS: ALB/GLOB Ratio 0.4 RATIO (0.9-2.4); AST(SGOT) 41 U/L (15-37); Alanine Aminotransfer ALT/SGPT 54 U/L (13-56); Albumin, Serum 2.1 g/dL (3.2-5.0); Alkaline Phosphatase 99 U/L (45-117); Anion Gap 7 (5-15); BUN 8 mg/dL (7-18); BUN/Creat Ratio 12.5 RATIO (10-20); Calcium,Total 8.3 mg/dL (8.5-10.1); Chloride 100 mmol/L (98-107); Creatinine, Serum 0.64 mg/dL (0.55-1.02); EST Glomerular Filtration Rate 100 mL/min (>60); Est Glom Filt Rate - Afr Amer 121 mL/min (>60); Estimated Creatinine Clearance 68.77 ml/min; Globulin 4.8 g/dL (2.2-4.2); Glucose 164 mg/dL (74-106); Potassium 3.3 mmol/L (3.5-5.1); Protein, Total 6.9 g/dL (6.4-8.2); Sodium Level 138 mmol/L (136-145)
[2023-05-15 07:06] LABS: Absolute Lymphocyte Count 1.55 X10^3/uL (0.83-4.51); Absolute Neutrophil Count 6.5 X10^3/uL (2.0-7.7); Basophil# 0.03 X10^3/uL; Basophil% 0.3 % (0-1); Eosinophil# 0.12 X10^3/uL; Eosinophils% 1.3 % (0-5); Hematocrit 34.1 % (37-47); Hemoglobin 11.4 g/dL (12.0-15.0); Lymphocyte # 1.55 X10^3/ul (0.83-4.51); Lymphocyte % 17.1 % (19-41); Mean Corp Hgb Conc 33.4 g/dL (32-36); Mean Corpuscular Hgb 30.1 pg (27.0-32.0); Mean Platelet Vol. 9.3 fl (6.2-12.0); Monocyte# 0.73 X10^3/uL; NRBC Flagged by Analyzer 0 % (0-5); Neutrophil # 6.52 X10^3/uL (2.7-7.7); Neutrophil % 71.9 % (47-70); Platelet Count 473 K/mm3 (150-450); RBC Distribution Width CV 13.1 % (11.6-14.6); RBC Distribution Width SD 43.3 fl (35.1-43.9); Red Blood Count 3.79 M/mm3 (4.2-5.4); White Blood Count 9.1 K/mm3 (4.4-11.0)
[2023-05-15 07:27] VITALS: O2SAT 96
[2023-05-15] MEDS: Acetaminophen 325 MG Tablet 650 MG PO ×2 (08:04→13:52)
[2023-05-15] MEDS: Calcium Carbonate 500 MG Tablet 1000 MG PO ×3 (08:04→21:08)
[2023-05-15 11:07] VITALS: BP 137/88; PULSE 89; RESP 18; TEMP 36.7; O2SAT 93
[2023-05-15] MEDS: Menthol/Lanolin/Calamine/Znox 113 GM Tube 1 APPLIC TOPICAL ×2 (11:18→21:21)
[2023-05-15] MEDS: busPIRone 5 MG Tablet PO ×2 (11:18→21:10)
[2023-05-15] MEDS: Potassium Chloride Oral Tablet 20 MEQ 40 MEQ PO ×2 (11:18→17:24)
[2023-05-15] MEDS: Furosemide 40 MG/4 ML Vial IV (11:19)
[2023-05-15] MEDS: Enoxaparin 40 MG/0.4 ML Syringe SC (11:19)
[2023-05-15] MEDS: Fluticasone 0.05% 1 SPRAY NASAL.SRY 2 SPRAY NASAL (11:19)
--- NOTE | 2023-05-15 13:26 | CON.PCM.ID_ITS ---
Assessment & Plan Assessment/Plan (1) RSV infection: (2) Community acquired pneumonia: PLAN: MRSA screen neg. Will stop vanc. Cont zosyn for now. RSV (+). Will follow, thank you (3) COPD (chronic obstructive pulmonary disease): HPI Consult Data Date of Consult: 05/15/23 HPI Narrative Reason for Consultation: fever HPI Narrative: TOMI DIA, is a 62 F with COPD, presented 05/10 with one week dyspnea, increased cough/sputum, diarrhea, nausea, mild fever/chills. Boyfriend has been sick recently. Came to ED, admitted, RSV (+), azithro/unasyn started. Now abx change to vanc/zosyn due to fever. Feeling a little better today. Full ROS performed and neg except as noted above. [facility] Medical History Bipolar 1 disorder COPD (chronic obstructive pulmonary disease) Fibromyalgia Hypertension NSTEMI (non-ST elevated myocardial infarction) Rheumatoid arthritis Home Medications albuterol sulfate 90 mcg/actuation aerosol inhaler (ProAir HFA) 2 puff inhalation Q4H PRN PRN Sob &/Or Wheezing 07/26/14 [History Last Taken 06/06/17] lisinopril 40 mg tablet (Zestril) 40 mg PO DAILY bp 07/26/14 [History Last Taken 06/07/17] nitroglycerin 0.4 mg sublingual tablet 0.4 mg sublingual PRN PRN CHEST PAIN 06/04/17 [History Last Taken Unknown] hyoscyamine sulfate 0.125 mg sublingual tablet 0.125 mg sublingual Q8H PRN dyspepsia 10/09/22 [History Last Taken Unknown] amitriptyline 100 mg tablet 100 mg PO QHS depresssion 10/10/22 [History Last Taken Unknown] hydroxyzine HCl 25 mg tablet 50 mg PO Q8H PRN anxiety 10/10/22 [History Last Taken Unknown] lisinopril 20 mg tablet 40 mg PO DAILY BP 10/10/22 [History Last Taken Unknown] meloxicam 7.5 mg tablet 7.5 mg PO DAILY pain 10/10/22 [History Last Taken Unknown] pregabalin 200 mg capsule 200 mg PO Q8H 10/10/22 [History Last Taken Unknown] sumatriptan succinate 50 mg tablet 50 mg PO PRN PRN migraine headache 10/10/22 [History Last Taken Unknown] ondansetron 4 mg disintegrating tablet 4 mg PO Q8H PRN PRN Nausea #14 tabs 11/14/22 [Rx Last Taken Unknown] atorvastatin 40 mg tablet 40 mg PO QHS Cholesterol 05/11/23 [History Last Taken Unknown] buspirone 5 mg tablet 5 mg PO TID Anxiety 05/11/23 [History Last Taken Unknown] dexlansoprazole 60 mg capsule,biphase delayed release 60 mg PO DAILY GERD 05/11/23 [History Last Taken Unknown] escitalopram oxalate 20 mg tablet 20 mg PO DAILY depression 05/11/23 [History Last Taken Unknown] fluticasone propionate 50 mcg/actuation nasal spray,suspension 2 spray intranasal DAILY allergies 05/11/23 [History Last Taken Unknown] furosemide 40 mg tablet 40 mg PO DAILY water pill 05/11/23 [History Last Taken Unknown] hydroxyzine HCl 50 mg tablet 50 mg PO TID Anxiety 05/11/23 [History Last Taken Unknown] pregabalin 25 mg capsule 25 mg PO BID Nerve pain 05/11/23 [History Last Taken Unknown] tizanidine 4 mg tablet 4 mg PO QHS PRN PRN muscle spasm 05/11/23 [History Last Taken Unknown] Allergy/AdvReac Type Severity Reaction Status Date / Time methotrexate Allergy Other Verified 05/11/23 11:21 nadolol Allergy Unknown Verified 05/11/23 11:21 prochlorperazine Allergy PT UNABLE Verified 05/11/23 11:21 TO RESPOND-NEEDS F/U baclofen AdvReac Other Verified 05/11/23 11:21 lorazepam [From Ativan] AdvReac Nausea Verified 11/14/22 10:49 propranolol AdvReac Other Verified 05/11/23 11:21 Social History Smoking Status: Former smoker Physical Exam Const alert and no apparent distress General Appearance: cooperative HEENT normocephalic and head/scalp atraumatic Eyes PERRL and EOMs intact bilaterally Neck supple and No nodes Resp Auscultation: wheezes and diminished lung sounds Cardio regular rate and regular rhythm GI soft to palpation, non-tender and non-distended Extremity General Extremity: Negative for edema Skin no rashes or lesions noted Neuro CN's II-XII intact bilaterally Medical Records Data Medical Nutrition Assessment Dietitian: Malnutrition Criteria Met Start: 05/12/23 14 :43 Freq: Status: Active Protocol: Document 05/12/23 14:44 RMA (Rec: 05/12/23 14:44 RMA [id number]) Nutrition Malnutrition Evidence of Malnutrition Exists Yes Malnutrition (severe): Acute Illness/Injury Evidenced By Suboptimal Energy Intake ( Severe),Weight Loss (Severe) Clinical Problem Acute Disease or Injury Related Malnutrition Etiology severe protein-calorie malnutrition in the context of acute illness related to inadequate oral intake and altered GI function/diarrhea Signs/Symptoms as evidenced by ~5-6% unintentional weight loss x 2 weeks and PO meeting less than 50% estimated nutrition needs x 2 weeks Status Active Problem Recommendation Dietitian Recommendations/Changes Continue liberalized regular diet as tolerated. Will add 240mL ensure clear BID w/ breakfast and dinner tray. Will add magic cup w/ lunch. Adjust ONS as needed to optimize PO and replete energy . Lab / Micro Data Attestation: I reviewed the patient's lab results. 05/15/23 06:25 05/15/23 06:25 Labs: Laboratory Results - last 24 hr 05/15/23 06:25: WBC 9.1, RBC 3.79 L, Hgb 11.4 L, Hct 34.1 L, MCV 90.0, MCH 30.1, MCHC 33.4, RDW Std Deviation 43.3, RDW Coeff of Alejandra 13.1, Plt Count 473 H, MPV 9.3, Immature Gran % (Auto) 1.400 H, Neut % (Auto) 71.9 H, Lymph % (Auto) 17.1 L , [place] % (Auto) 8.0, Eos % (Auto) 1.3, Baso % (Auto) 0.3, Absolute Neuts (auto) 6.5, Absolute Lymphs (auto) 1.55, Nucleated RBC % 0, Sodium 138, Potassium 3.3 L , Chloride 100, Carbon Dioxide 31.0, Anion Gap 7, BUN 8, Creatinine 0.64, Estim Creat Clear Calc 68.77, Est GFR (MDRD) Af Amer 121, Est GFR (MDRD) Non-Af 100, BUN/Creatinine Ratio 12.5, Glucose 164 H, Calcium 8.3 L, Total Bilirubin 0.40, AST 41 H, ALT 54, Alkaline Phosphatase 99, Total Protein 6.9, Albumin 2.1 L, Globulin 4.8 H, Albumin/Globulin Ratio 0.4 L Micro: Microbiology 05/14/23 10:04 Nasal Secretion MRSA (PCR) - Final Imaging Radiology Impression Chest X-Ray 05/14/23 10:43 IMPRESSION: Diffuse airspace opacifications in the right lung field with blunting of the right costophrenic angle suggests a likely combination of infiltrate atelectasis and effusion. Follow-up recommended to ensure resolution Left perihilar atelectasis or early infiltrate without effusion Electronically Signed: Alvino Fisher MD at 13:08 EDT ,
[2023-05-15] MEDS: hydrOXYzine PAM 25 MG Capsule PO ×2 (15:10→23:04)
[2023-05-15 15:19] VITALS: BP 138/87; PULSE 97; RESP 16; TEMP 36.8; O2SAT 94
[2023-05-15] MEDS: Pregabalin 25 MG Capsule PO ×2 (15:32→21:21)
--- NOTE | 2023-05-15 16:45 | PN.HOSP_ITS ---
Reason for Visit Reason for Visit: Diagnoses Other specified viral diseases (05/11/23) Pneumonia, unspecified organism (05/11/23) Chronic obstructive pulmonary disease, unspecified (05/11/23) Objective Data Objective Data Vital Signs: Vital Signs Temp Pulse Resp BP Pulse Ox O2 Del Method O2 Flow Rate 98.2 F 97 16 138/87 H 94 Nasal Cannula 2 05/15/23 15:19 05/15/23 15:19 05/15/23 15:19 05/15/23 15:19 05/15/23 15:19 05/15/23 15:19 05/15/23 15:19 Oxygen Flow Rate (L/min) 2 Oxygen Delivery Method Nasal Cannula Weight: 118 lb 2.684 oz Body Mass Index (BMI) 22.3 Intake & Output: Intake and Output for Last 24 Hours 05/13/23 05/14/23 05/15/23 23:59 23:59 23:59 Intake Total 2108 / 2108 979 / 979 500 / 500 Output Total 1250 / 1250 Balance 2108 / 2108 979 / 979 -750 / -750 Medical Nutrition Assessment Dietitian: Malnutrition Criteria Met Start: 05/12/23 14:43 Freq: Status: Active Protocol: Document 05/12/23 14:44 RMA (Rec: 05/12/23 14:44 RMA [id number]) Nutrition Malnutrition Evidence of Malnutrition Exists Yes Malnutrition (severe): Acute Illness/Injury Evidenced By Suboptimal Energy Intake ( Severe),Weight Loss (Severe) Clinical Problem Acute Disease or Injury Related Malnutrition Etiology severe protein-calorie malnutrition in the context of acute illness related to inadequate oral intake and altered GI function/diarrhea Signs/Symptoms as evidenced by ~5-6% unintentional weight loss x 2 weeks and PO meeting less than 50% estimated nutrition needs x 2 weeks Status Active Problem Recommendation Dietitian Recommendations/Changes Continue liberalized regular diet as tolerated. Will add 240mL ensure clear BID w/ breakfast and dinner tray. Will add magic cup w/ lunch. Adjust ONS as needed to optimize PO and replete energy . Lab / Micro Data 05/15/23 06:25 05/15/23 06:25 Labs: Laboratory Results - last 24 hr 05/15/23 06:25: WBC 9.1, RBC 3.79 L, Hgb 11.4 L, Hct 34.1 L, MCV 90.0, MCH 30.1, MCHC 33.4, RDW Std Deviation 43.3, RDW Coeff of Alejandra 13.1, Plt Count 473 H, MPV 9.3, Immature Gran % (Auto) 1.400 H, Neut % (Auto) 71.9 H, Lymph % (Auto) 17.1 L , [place] % (Auto) 8.0, Eos % (Auto) 1.3, Baso % (Auto) 0.3, Absolute Neuts (auto) 6.5, Absolute Lymphs (auto) 1.55, Nucleated RBC % 0, Sodium 138, Potassium 3.3 L , Chloride 100, Carbon Dioxide 31.0, Anion Gap 7, BUN 8, Creatinine 0.64, Estim Creat Clear Calc 68.77, Est GFR (MDRD) Af Amer 121, Est GFR (MDRD) Non-Af 100, B UN/Creatinine Ratio 12.5, Glucose 164 H, Calcium 8.3 L, Total Bilirubin 0.40, AST 41 H, ALT 54, Alkaline Phosphatase 99, Total Protein 6.9, Albumin 2.1 L, Globulin 4.8 H, Albumin/Globulin Ratio 0.4 L Micro: Microbiology 05/14/23 10:04 Nasal Secretion MRSA (PCR) - Final 05/13/23 15:06 Stool Enteric Bacteriology - Final 05/13/23 15:06 Stool Clostridioides difficile (PCR) - Final 05/11/23 11:37 Mucosa - Nasopharyngeal SARS-CoV-2, Influenza & RSV (PCR) - Final RSV Physical Exam Narrative Seen and examined. Did not had fever last night. Shortness of breath and wheezing better. Discussed with ID. Physical exam General: Alert, Oriented x3, Cooperative intermittently confused at night.'s HEENT: Atraumatic, PERRLA, EOMI, Normocephalic Oral: Oral mucosa dry no Gingival or Mucosal Lesions/ Ulcerations Neck: Supple, No JVD, Negative Carotid Bruits Chest wall/Lungs: Air entry diminished in bilateral lung bases. Air entry diminished in right lung base. Crepitations and wheezing better. Cardiovascular: Regular Regular Rhythm, Normal S1, Normal S2, No M/G/R Abdomen: Bowel Sounds Present, Soft to palpation, Non Tender, Non-Distended. No palpable mass. : No dysuria. No renal angle tenderness. No suprapubic tenderness. Extremities: No edema, Capillary Refill Less than 3 Seconds Skin: No rashes, No breakdown Musculoskeletal: No Tenderness to Palpation of Joints or Extremities. Muscle strength 4+/5 at knees and hip joints. Neurological: Cranial nerves II-XII grossly intact, DTR 2+/4. No acute focal neurological deficit. Psych/Mental Status: Flat affect. Anxiety and depression multiple antipsychotic and anti-anxiety pills Assessment & Plan Assessment/Plan (1) RSV infection: PLAN: Plan 62-year-old female with a history of fibromyalgia, bipolar disorder, rheumatoid arthritis, presents to the ED with concerns regarding ongoing diarrhea since the last 10 days, shortness of breath and features of hypokalemia at the time of presentation. Patient also had low-grade fever cough and shortness of breath for 7 to 10 days. 1. Diarrhea: Likely infectious diarrhea given in the setting of acute onset, suspected viral. Supportive IV fluid and correction of electrolytes. Intake and output. Patient is stated she did not had any recent antibiotic. Enteric bacteriology panel, C. difficile stool for Giardia ordered. Soft diet. -CT scan suggestive of thickening of the distal gastric antrum, will consult GI as an outpatient for further evaluation. Could be in the setting of acute gastroenteritis. No features of colitis 05/12: Stool studies are pending probably she did not had bowel movement after being admitted. Diarrhea resolved. 2. Right middle lobe pneumonia and remnant right upper lobe pneumonia due to RSV pneumonia with secondary bacterial infection: Chest CT was individually reviewed. Shows right middle lobe infiltrate with air bronchograms and a small subsegmental atelectasis in the right upper lobe. No mass or pleural effusion. Mediastinum unremarkable. Clinically it seems patient has bacterial superinfection therefore started on IV Unasyn and Zithromax. Patient also states sometimes she chokes/coughs while eating therefore speech therapy to evaluate for possible aspiration. DuoNeb, incentive spirometry, Pep and Mucinex DM. Oxygen to keep pulse ox 90%. 05/11: Patient's symptoms are better. But still weak. PT and OT ordered. Continue IV antibiotic. 05/13: Patient symptoms of shortness of breath worse with increasing temperature and leukocytosis and imaging pneumocytes. Repeat chest x-ray was done and mahamed red with the CT chest during admission. Looks worsening of the infiltrate/consolidation in right lung with small effusion. IV antibiotic broadened to IV Zosyn. Discontinue Unasyn. Will request ID consult. Lasix 40 mg IV 1 dose now and then repeat tomorrow. Will reevaluate. 05/14: Discussed with ID. MRSA nasal screen negative therefore vancomycin discontinued. Continue Zosyn. RSV pneumonia with possibility of secondary bacterial pneumonia. 3. Hypokalemia: Related to acute diarrhea and fluid loss. Potassium replacement. 05/12: Serum magnesium 1.8 and normal. Phosphorus 3.1 in normal range. 05/13: Hypokalemia corrected. 05/14 potassium low and on replacement. 4. Bipolar disorder, anxiety and multiple medications.: Continue Lexapro 05/14: The patient looked very anxious and restless. Resume home medication buspirone 5 mg, 3 times daily. On Hydroxyzine 25 mg tid prn, lyrixa 25 mg tid for neuropathic pain in hands 5. Fibromyalgia: Continue home pain medications including Zanaflex and hydrocodone: 6. DVT prophylaxis: Lovenox 40 mg subcu daily 7. Hypertension: On lisinopril and Lasix at home, hold the medication for now given the hypokalemia Clinical Impression(s) from Imaging Studies Abdomen/Pelvis CT 05/11/23 11:27 IMPRESSION: 1. Abnormal intramural edema/thickening of the distal gastric antrum wall extending to the pylorus. EGD will be very helpful for further evaluation. 2. No other suspicious acute abnormality in the abdomen and pelvis. 3. Prominent right lateral lung base atelectasis with air bronchograms. Superimposed pneumonia cannot be excluded. 4. Subpleural confluent infiltrate in the medial aspect of the left lower lobe is most likely pneumonia rather than pulmonary nodule. This is a new finding. Follow-up CT chest in one month will help clarify. 5. Cardiomegaly with new 4 mm right pericardial effusion. Chest CT 05/11/23 12:42 IMPRESSION: 1. Prominent atelectases in the right lateral lung base containing air bronchograms. Superimposed pneumonia can''t be excluded. This accounts for the new mediastinal shift when compared to 07/26/2014. 2. A couple of adjacent nodular-like infiltrates in the central aspect of the right upper lobe. This is most likely pneumonia. This is a new finding. 3. Subsegmental atelectasis in the caudal aspect of the right upper lobe. 4. Previous large pneumonia involving the lower lobes of the groundglass opacities in the upper lobes towards the apices have largely resolved. Pneumonia above are new findings. 5. Increased thoracic kyphosis due to increased number of old anterior wedge compression fractures involving T6 down to T11 vertebral bodies. 6. Cardiomegaly is unchanged but there is new 4 mm small right pericardial effusion. Electronically Signed: Thomas Portillo MD at 13:12 EST , Charges/Coding Visit Charges Inpatient E&M: 52453 Subs Hosp L2
[2023-05-15] MEDS: Ipratropium/Albuterol Sulfate 3 ML AMPUL.NEB INHALATION (19:43)
[2023-05-15 19:45] VITALS: PULSE 94; RESP 18; O2SAT 95
[2023-05-15] MEDS: Amitriptyline 25 MG Tablet 50 MG PO (21:08)
[2023-05-15] MEDS: Atorvastatin Calcium 40 MG Tablet PO (21:11)
[2023-05-15 21:19] VITALS: BP 154/99; PULSE 96; RESP 17; TEMP 37.7; O2SAT 94
[2023-05-16] VITALS (10 sets, daily range): BP systolic 110–154; BP diastolic 79–99; PULSE 88–103; RESP 16–20; TEMP 36.7–37.7; O2SAT 92–97
[2023-05-16] MEDS: Pregabalin 25 MG Capsule PO ×3 (06:15→23:41)
[2023-05-16] MEDS: busPIRone 5 MG Tablet PO ×3 (06:15→23:41)
[2023-05-16] MEDS: Piperacil/Tazobactam 3.375 GM in 0.9% Normal Saline (50mL MB+) 50 ML IV ×3 (06:15→23:39)
[2023-05-16] MEDS: Ipratropium/Albuterol Sulfate 3 ML AMPUL.NEB INHALATION ×2 (06:56→20:56)
[2023-05-16 07:04] LABS: Absolute Neutrophil Count 5.4 X10^3/uL (2.0-7.7); Basophil# 0.06 X10^3/uL; Basophil% 0.7 % (0-1); Eosinophil# 0.27 X10^3/uL; Eosinophils% 3.1 % (0-5); Hematocrit 35.1 % (37-47); Hemoglobin 11.4 g/dL (12.0-15.0); Lymphocyte % 24.9 % (19-41); Mean Corp Hgb Conc 32.5 g/dL (32-36); Mean Corpuscular Hgb 29.5 pg (27.0-32.0); Mean Corpuscular Volume 90.7 fL (81-99); Mean Platelet Vol. 9.2 fl (6.2-12.0); Monocyte# 0.86 X10^3/uL; Monocyte% 9.7 % (0-10); NRBC Flagged by Analyzer 0 % (0-5); Neutrophil # 5.38 X10^3/uL (2.7-7.7); Neutrophil % 60.7 % (47-70); Platelet Count 517 K/mm3 (150-450); RBC Distribution Width CV 13.2 % (11.6-14.6); RBC Distribution Width SD 43.7 fl (35.1-43.9); Red Blood Count 3.87 M/mm3 (4.2-5.4); White Blood Count 8.9 K/mm3 (4.4-11.0)
[2023-05-16 07:52] LABS: ALB/GLOB Ratio 0.4 RATIO (0.9-2.4); AST(SGOT) 42 U/L (15-37); Alanine Aminotransfer ALT/SGPT 51 U/L (13-56); Albumin, Serum 2.2 g/dL (3.2-5.0); Alkaline Phosphatase 90 U/L (45-117); Anion Gap 7 (5-15); BUN 13 mg/dL (7-18); BUN/Creat Ratio 15.4 RATIO (10-20); Calcium,Total 8.9 mg/dL (8.5-10.1); Chloride 102 mmol/L (98-107); Creatinine, Serum 0.84 mg/dL (0.55-1.02); EST Glomerular Filtration Rate 73 mL/min (>60); Est Glom Filt Rate - Afr Amer 88 mL/min (>60); Globulin 4.9 g/dL (2.2-4.2); Glucose 123 mg/dL (74-106); Potassium 3.6 mmol/L (3.5-5.1); Protein, Total 7.1 g/dL (6.4-8.2); Sodium Level 140 mmol/L (136-145)
[2023-05-16] MEDS: Potassium Chloride Oral Tablet 20 MEQ 40 MEQ PO (09:06)
[2023-05-16] MEDS: Fluticasone 0.05% 1 SPRAY NASAL.SRY 2 SPRAY NASAL (09:07)
[2023-05-16] MEDS: Menthol/Lanolin/Calamine/Znox 113 GM Tube 1 APPLIC TOPICAL ×2 (09:07→23:42)
[2023-05-16] MEDS: Enoxaparin 40 MG/0.4 ML Syringe SC (09:07)
--- NOTE | 2023-05-16 09:23 | PN.HOSP_ITS ---
Reason for Visit Reason for Visit: Diagnoses Other specified viral diseases (05/11/23) Pneumonia, unspecified organism (05/11/23) Chronic obstructive pulmonary disease, unspecified (05/11/23) Subjective Subjective Breathing ok. No events overnight. Objective Data Objective Data Vital Signs: Vital Signs Temp Pulse Resp BP Pulse Ox O2 Del Method O2 Flow Rate 36.7 C 98 18 132/85 H 92 Nasal Cannula 5 05/16/23 08:49 05/16/23 08:49 05/16/23 08:49 05/16/23 08:49 05/16/23 08:49 05/16/23 08:49 05/16/23 08:49 Oxygen Flow Rate (L/min) 5 Oxygen Delivery Method Nasal Cannula Weight: 53.6 kg Body Mass Index (BMI) 22.3 Intake & Output: Intake and Output for Last 24 Hours 05/14/23 05/15/23 05/16/23 23:59 23:59 23:59 Intake Total 979 / 979 550 / 650 170 / 170 Output Total 1250 / 1250 0 / 0 Balance 979 / 979 -700 / -600 170 / 170 Medical Nutrition Assessment Dietitian: Malnutrition Criteria Met Start: 05/12/23 14:43 Freq: Status: Active Protocol: Document 05/12/23 14:44 RMA (Rec: 05/12/23 14:44 RMA [id number]) Nutrition Malnutrition Evidence of Malnutrition Exists Yes Malnutrition (severe): Acute Illness/Injury Evidenced By Suboptimal Energy Intake ( Severe),Weight Loss (Severe) Clinical Problem Acute Disease or Injury Related Malnutrition Etiology severe protein-calorie malnutrition in the context of acute illness related to inadequate oral intake and altered GI function/diarrhea Signs/Symptoms as evidenced by ~5-6% unintentional weight loss x 2 weeks and PO meeting less than 50% estimated nutrition needs x 2 weeks Status Active Problem Recommendation Dietitian Recommendations/Changes Continue liberalized regular diet as tolerated. Will add 240mL ensure clear BID w/ breakfast and dinner tray. Will add magic cup w/ lunch. Adjust ONS as needed to optimize PO and replete energy . Lab / Micro Data 05/16/23 06:40 05/16/23 06:40 Labs: Laboratory Results - last 24 hr 05/16/23 06:40: WBC 8.9, RBC 3.87 L, Hgb 11.4 L, Hct 35.1 L, MCV 90.7, MCH 29.5, MCHC 32.5, RDW Std Deviation 43.7, RDW Coeff of Alejandra 13.2, Plt Count 517 H, MPV 9.2, Immature Gran % (Auto) 0.900, Neut % (Auto) 60.7, Lymph % (Auto) 24.9, [place] % (Auto) 9.7, Eos % (Auto) 3.1, Baso % (Auto) 0.7, Absolute Neuts (auto) 5.4, Absolute Lymphs (auto) 2.20, Nucleated RBC % 0, Sodium 140, Potassium 3.6, Chloride 102, Carbon Dioxide 31.0, Anion Gap 7, BUN 13, Creatinine 0.84, Estim Creat Clear Calc 52.40, Est GFR (MDRD) Af Amer 88, Est GFR (MDRD) Non-Af 73, BUN/Creatinine Ratio 15.4, Glucose 123 H, Calcium 8.9, Total Bilirubin 0.50, AST 42 H, ALT 51, Alkaline Phosphatase 90, Total Protein 7.1, Albumin 2.2 L, Globulin 4.9 H, Albumin/Globulin Ratio 0.4 L Micro: Microbiology 05/14/23 10:04 Nasal Secretion MRSA (PCR) - Final 05/13/23 15:06 Stool Enteric Bacteriology - Final 05/13/23 15:06 Stool Clostridioides difficile (PCR) - Final 05/11/23 11:37 Mucosa - Nasopharyngeal SARS-CoV-2, Influenza & RSV (PCR) - Final RSV Radiography Diagnostic Testing: Radiology Impression Chest X-Ray 05/14/23 10:43 IMPRESSION: Diffuse airspace opacifications in the right lung field with blunting of the right costophrenic angle suggests a likely combination of infiltrate atelectasis and effusion. Follow-up recommended to ensure resolution Left perihilar atelectasis or early infiltrate without effusion Electronically Signed: Alvino Fisher MD at 13:08 EDT , Physical Exam Const alert and no apparent distress Constitutional Narrative: up in chair. HEENT head/scalp atraumatic and moist oral mucous membranes Resp normal respiratory effort, no retractions, no use of accessory muscles and clear to auscultation bilaterally Cardio regular rate, regular rhythm, S1 normal heart sound and S2 normal heart sound GI normal to inspection, nondistended, normoactive bowel sounds, soft to palpation and non-tender Extremity normal to inspection Assessment & Plan Assessment/Plan (1) RSV infection: PLAN: Plan Diarrhea: * resolved Suspected gram negative pneumonia * RML infiltrate * on pip/tazo * complciated by RSV. * ID following * wean oxygen as able Chronic conditions: * Bipolar disorder, anxiety and multiple medications.: Continue home medications. * Fibromyalgia: Continue home pain medications including Zanaflex and hydrocodone * Hypertension: On lisinopril and Lasix at home, hold the medication for now given the hypokalemia DVT prophylaxis: Lovenox 40 mg subcu daily Charges/Coding Visit Charges Inpatient E&M: 79031 Subs Hosp L2
--- NOTE | 2023-05-16 09:57 | CASEMGMT ---
Addendum entered by Luciana Keller 05/16/23 11:01: Pt provided w/HHC list that was prepared by Anne Marie discharge planning management it specialist. Pt made aware to review and to pick top 3 preferences. Original Note: RICARDO SYED NOTE: Therapy notes reviewed from yesterday. Pt ambulated 45 ft w/use of FWW and CGA. Additional therapy recommended. [facility]O SYED to room. Discussed discharge plan. Pt states she wishes to discharge home and feels safe going home. She would like C. Made aware a list can be provided to review. Discussed possible need of a walker. Pt states she has already dropped a script off @ [facility] for a walker. Call placed to Geni @ [facility]. She states the script says walker potentially w/a seat and asked for clarification of what pt wants. She states if she wants a rollator, [id number] cost would be $59.95. Pt made aware. She states this is not affordable and states would rather get a WW. She was made aware if she gets a WW through her insurance, that her insurance most likely will not cover for any cost of a rollator for 5 years. She voices understanding and states would still rather get a WW at this time. She prefers [facility] for the WW and states if she qualifies for O2 @ d/c that she would like to get that from [facility] as well. Yasmin GARCIA RN, CM
--- NOTE | 2023-05-16 10:10 | CASEMGMT ---
Discharge Planning A list of HH providers including quality and resource use data and consistent with the patient's preferred geographic region, medical needs, and insurance network was created in [facility] [facility].? This list was provided to the RN YAHAIRA. Anne Marie Sherwood, Discharge Planning Asst.
--- NOTE | 2023-05-16 10:34 | PCM.PN.ID ---
Physical Exam Narrative Feeling better, less dyspnea, no fever. Some sputum. Const alert and no apparent distress Resp Auscultation: rhonchi and wheezes Cardio regular rate and regular rhythm GI soft to palpation, non-tender and non-distended Skin no rashes or lesions noted ID ID: Route of nutrition/ use of supplements: [] Nutritional Intake: [] IV Site: [] Byrne Catheter: [] Assessment & Plan Assessment/Plan (1) RSV infection: (2) Community acquired pneumonia: PLAN: MRSA screen neg. Cont zosyn for now. RSV (+). Fever here may have been related to the RSV, not due to antibiotic failure. Still on 4L, feeling better. No further fever, wbc normal. If continues to improve, ok to stop abx tomorrow. Will follow (3) COPD (chronic obstructive pulmonary disease):
[2023-05-16] MEDS: Furosemide 40 MG/4 ML Vial IV (11:18)
[2023-05-16] MEDS: 0.9% Saline Lock 10 ML Syringe IV (11:18)
[2023-05-16] MEDS: Calcium Carbonate 500 MG Tablet 1000 MG PO ×2 (14:40→23:41)
--- NOTE | 2023-05-16 15:53 | CASEMGMT ---
Addendum entered by Anne Marie Sherwood 05/17/23 14:19: All new agencies declined referral. RICARDO SYED updated. Anne Marie Sherwood Discharge Planning Asst. Addendum entered by Anne Marie Sherwood 05/17/23 11:52: New HH referral sent to [facility], [facility], [facility], [facility], [facility], [facility], [facility], [facility], and [facility]. Anne Marie Sherwood Discharge Planning Asst. Addendum entered by Anne Marie Sherwood 05/17/23 11:45: Patient updated regarding referrals. She is open to new referrals sent to agencies not on provider list. RIC[facility]O SYED updated. Anne Marie Sherwood Discharge Planning Asst. Addendum entered by Anne Marie Sherwood 05/17/23 11:37: All agencies declined referral. R[facility]O SYED updated. Anne Marie Sherwood Discharge Planning Asst. Original Note: Discharge Planning Per patient request, HH referral sent to [facility], [facility], [facility], [facility], and [facility]. [facility]O SYED updated. Anne Marie Sherwood Discharge Planning Asst.
[2023-05-16] MEDS: Escitalopram Oxalate 20 MG Tablet PO (16:08)
[2023-05-16] MEDS: Amitriptyline 25 MG Tablet 50 MG PO (23:40)
[2023-05-16] MEDS: Atorvastatin Calcium 40 MG Tablet PO (23:41)
[2023-05-17] VITALS (7 sets, daily range): BP systolic 119–151; BP diastolic 78–100; PULSE 88–99; RESP 16–18; TEMP 36.6–36.9; O2SAT 94–97
[2023-05-17] MEDS: Piperacil/Tazobactam 3.375 GM in 0.9% Normal Saline (50mL MB+) 50 ML IV ×3 (06:30→21:29)
[2023-05-17] MEDS: Pregabalin 25 MG Capsule PO ×3 (06:31→21:30)
[2023-05-17] MEDS: busPIRone 5 MG Tablet PO ×3 (06:31→21:30)
--- NOTE | 2023-05-17 07:42 | PN.HOSP_ITS ---
Reason for Visit Reason for Visit: Diagnoses Other specified viral diseases (05/11/23) Pneumonia, unspecified organism (05/11/23) Chronic obstructive pulmonary disease, unspecified (05/11/23) Subjective Subjective Still with higher flow oxygen requirements. Objective Data Objective Data Vital Signs: Vital Signs Temp Pulse Resp BP Pulse Ox O2 Del Method O2 Flow Rate 36.6 C 88 16 119/78 94 Nasal Cannula 5 05/17/23 06:00 05/17/23 06:00 05/17/23 06:00 05/17/23 06:00 05/17/23 06:00 05/17/23 06:00 05/17/23 06:00 Oxygen Flow Rate (L/min) 5 Oxygen Delivery Method Nasal Cannula Weight: 53.6 kg Body Mass Index (BMI) 22.3 Intake & Output: Intake and Output for Last 24 Hours 05/15/23 05/16/23 05/17/23 23:59 23:59 23:59 Intake Total 550 / 650 270 / 490 370 / 370 Output Total 1250 / 1250 0 / 0 0 / 0 Balance -700 / -600 270 / 490 370 / 370 Medical Nutrition Assessment Dietitian: Malnutrition Criteria Met Start: 05/12/23 14:43 Freq: Status: Active Protocol: Document 05/12/23 14:44 RMA (Rec: 05/12/23 14:44 RMA [id number]) Nutrition Malnutrition Evidence of Malnutrition Exists Yes Malnutrition (severe): Acute Illness/Injury Evidenced By Suboptimal Energy Intake ( Severe),Weight Loss (Severe) Clinical Problem Acute Disease or Injury Related Malnutrition Etiology severe protein-calorie malnutrition in the context of acute illness related to inadequate oral intake and altered GI function/diarrhea Signs/Symptoms as evidenced by ~5-6% unintentional weight loss x 2 weeks and PO meeting less than 50% estimated nutrition needs x 2 weeks Status Active Problem Recommendation Dietitian Recommendations/Changes Continue liberalized regular diet as tolerated. Will add 240mL ensure clear BID w/ breakfast and dinner tray. Will add magic cup w/ lunch. Adjust ONS as needed to optimize PO and replete energy . Lab / Micro Data 05/16/23 06:40 05/16/23 06:40 Labs: Laboratory Results - last 24 hr 05/16/23 06:40: Sodium 140, Potassium 3.6, Chloride 102, Carbon Dioxide 31.0, Anion Gap 7, BUN 13, Creatinine 0.84, Estim Creat Clear Calc 52.40, Est GFR (MDRD) Af Amer 88, Est GFR (MDRD) Non-Af 73, BUN/Creatinine Ratio 15.4, Glucose 123 H, Calcium 8.9, Total Bilirubin 0.50, AST 42 H, ALT 51, Alkaline Phosphatase 90, Total Protein 7.1, Albumin 2.2 L, Globulin 4.9 H, Albumin/Globulin Ratio 0.4 L Micro: Microbiology 05/16/23 10:00 Stool Stool Lactoferrin - Final 05/16/23 10:00 Stool Stool Occult Blood (FLO) - Final 05/11/23 12:55 Blood Culture (Wb) - Anticubital Right Blood Culture - Final No growth in 5 days. 05/11/23 13:00 Blood Culture (Wb) - Left Wrist Blood Culture - Final No growth in 5 days. 05/16/23 10:37 Sputum, Expectorated/Coughed Gram Stain - Final 05/14/23 10:04 Nasal Secretion MRSA (PCR) - Final 05/13/23 15:06 Stool Enteric Bacteriology - Final 05/13/23 15:06 Stool Clostridioides difficile (PCR) - Final 05/11/23 11:37 Mucosa - Nasopharyngeal SARS-CoV-2, Influenza & RSV (PCR) - Final RSV Physical Exam Const alert and no apparent distress HEENT head/scalp atraumatic and moist oral mucous membranes Resp normal respiratory effort and no retractions Resp Narrative: diminished in RLL. Cardio regular rate, regular rhythm, S1 normal heart sound and S2 normal heart sound GI normal to inspection, nondistended, normoactive bowel sounds, soft to palpation, non-tender and non-distended Extremity normal to inspection Neuro Sensorium / Orientation: awake and alert Psych affect normal Assessment & Plan Assessment/Plan (1) RSV infection: PLAN: Plan Diarrhea: * resolved Suspected gram negative pneumonia * RML infiltrate * on pip/tazo * complciated by RSV. * ID following * wean oxygen as able Hypoxia * CT showing RLL consolidation. Concerning for ATX. * Add PEP. Add vest therapy. Chronic conditions: * Bipolar disorder, anxiety and multiple medications.: Continue home med ications. * Fibromyalgia: Continue home pain medications including Zanaflex and hydrocodone * Hypertension: On lisinopril and Lasix at home, hold the medication for now given the hypokalemia DVT prophylaxis: Lovenox 40 mg subcu daily Charges/Coding Visit Charges Inpatient E&M: 49874 Subs Hosp L2
--- NOTE | 2023-05-17 07:45 | RAD_ITS ---
STUDY: X-RAY CHEST REASON FOR EXAM: Female, 62 years old. pneumonia. ongoing hypoxia. TECHNIQUE: Single AP portable view of the chest. COMPARISON: May 14, 2023 FINDINGS: 1. Severe right lower lobe consolidation and moderate pleural effusion unchanged 2. Right lower lobe atelectasis with mild rotation of the mediastinum to the right 3. Interval clearance of previously seen right upper lobe irregular consolidation. Background of interstitial fibrosis redemonstrated 4. The left lung is clear of consolidation or acute infiltrates. Chronic background interstitial fibrosis redemonstrated 5. Normal heart size 6. Stable mediastinum and osseous structures There is no demonstrated abnormality of the visualized soft tissue structures of the upper abdomen. RAD/Chest 1 View (Portable) IMPRESSION: Severe right lower lobe consolidation and moderate pleural effusion unchanged Electronically Signed: Josh Mason MD at 8:39 EDT ,
[2023-05-17] MEDS: Menthol/Lanolin/Calamine/Znox 113 GM Tube 1 APPLIC TOPICAL ×2 (08:41→21:31)
[2023-05-17] MEDS: Furosemide 40 MG/4 ML Vial IV (08:41)
[2023-05-17] MEDS: 0.9% Saline Lock 10 ML Syringe IV (08:41)
[2023-05-17] MEDS: Enoxaparin 40 MG/0.4 ML Syringe SC (08:42)
[2023-05-17] MEDS: HYDROcodone Bitartrate/Apap 5/325 Tablet PO ×3 (08:42→21:42)
[2023-05-17] MEDS: Potassium Chloride Oral Tablet 20 MEQ 40 MEQ PO (08:42)
[2023-05-17] MEDS: Fluticasone 0.05% 1 SPRAY NASAL.SRY 2 SPRAY NASAL (08:43)
[2023-05-17] MEDS: Escitalopram Oxalate 20 MG Tablet PO (08:43)
--- NOTE | 2023-05-17 09:10 | CT_ITS ---
STUDY: CT CHEST WITH CONTRAST REASON FOR EXAM: Female, 62 years old. Pneumonia with pleural effusion. RADIATION DOSAGE (If Supplied By Facility): CTDIvol = ( 9.74 ) mGy, DLP = ( 177.97 ) mGycm TECHNIQUE: Transaxial imaging was performed following intravenous administration of IV 100mL Isovue-300. Individualized dose optimization techniques were used for this CT. COMPARISON: Comparison is made with prior study dated May 11, 2023. FINDINGS: CHEST A right-sided portacatheter is seen with the tip in the superior vena cava. The previously seen spiculated nodule in the right upper lobe has decreased in size and density. It presently measures 1 cm x 0.6 cm. Since prior study, there has been progressive consolidation in the posterior aspect of the right middle lobe as well as the right lower lobe with small right pleural effusion. Mild atelectasis at the left lung base. Small pericardial effusion. No significant coronary artery calcification is seen. Normal mediastinum. Stable mild enlargement of the left infrahilar lymph node. Normal unenhanced pulmonary arteries. Normal aorta arch and descending thoracic aorta. There are multi-level degenerative changes of the thoracic spine. Stable anterior compression of the T6, T7, T8, T9 and T10 vertebrae. There is no demonstrated abnormality of the visualized upper abdomen. CT/Chest WITH Contrast IMPRESSION: Interval decrease in size of the previously seen nodule in the right upper lobe. Progressive consolidation in the lateral aspect of the right middle lobe and right lower lobe with atelectasis at the left lung base. Electronically Signed: Bebeto Mariscal MD at 10:33 EDT ,
--- NOTE | 2023-05-17 16:18 | CASEMGMT ---
RICARDO SYED to pt room at this time. This RICARDO SYED explained to the pt that we were unable to get an accepting HH agency. Pt states that she is OK with this and that she feels safe going home at [place] via her . Pt states that her helps care for her needs at home. Pt denies further questions at this time.
[2023-05-17] MEDS: Calcium Carbonate 500 MG Tablet 1000 MG PO (21:29)
[2023-05-17] MEDS: Atorvastatin Calcium 40 MG Tablet PO (21:30)
[2023-05-17] MEDS: Amitriptyline 25 MG Tablet 50 MG PO (21:30)
[2023-05-18] VITALS (7 sets, daily range): BP systolic 130–140; BP diastolic 60–86; PULSE 92–106; RESP 16–18; TEMP 36.3–37.1; O2SAT 92–94
[2023-05-18] MEDS: Piperacil/Tazobactam 3.375 GM in 0.9% Normal Saline (50mL MB+) 50 ML IV ×3 (06:04→21:28)
[2023-05-18] MEDS: Pregabalin 25 MG Capsule PO ×3 (06:04→21:28)
[2023-05-18] MEDS: busPIRone 5 MG Tablet PO ×3 (06:04→20:44)
[2023-05-18 06:11] LABS: Absolute Lymphocyte Count 1.98 X10^3/uL (0.83-4.51); Absolute Neutrophil Count 4.5 X10^3/uL (2.0-7.7); Basophil# 0.07 X10^3/uL; Basophil% 0.9 % (0-1); Eosinophil# 0.33 X10^3/uL; Eosinophils% 4.3 % (0-5); Hematocrit 33.6 % (37-47); Hemoglobin 10.7 g/dL (12.0-15.0); Lymphocyte # 1.98 X10^3/ul (0.83-4.51); Lymphocyte % 25.5 % (19-41); Mean Corp Hgb Conc 31.8 g/dL (32-36); Mean Corpuscular Hgb 29.4 pg (27.0-32.0); Mean Corpuscular Volume 92.3 fL (81-99); Monocyte# 0.85 X10^3/uL; NRBC Flagged by Analyzer 0 % (0-5); Neutrophil # 4.45 X10^3/uL (2.7-7.7); Neutrophil % 57.4 % (47-70); Platelet Count 533 K/mm3 (150-450); RBC Distribution Width CV 13.2 % (11.6-14.6); RBC Distribution Width SD 44.8 fl (35.1-43.9); Red Blood Count 3.64 M/mm3 (4.2-5.4); White Blood Count 7.8 K/mm3 (4.4-11.0)
[2023-05-18 06:51] LABS: Anion Gap 3 (5-15); BUN 19 mg/dL (7-18); BUN/Creat Ratio 20.7 RATIO (10-20); Calcium,Total 9.1 mg/dL (8.5-10.1); Chloride 102 mmol/L (98-107); Creatinine, Serum 0.92 mg/dL (0.55-1.02); EST Glomerular Filtration Rate 66 mL/min (>60); Est Glom Filt Rate - Afr Amer 79 mL/min (>60); Estimated Creatinine Clearance 47.84 ml/min; Glucose 115 mg/dL (74-106); Potassium 3.8 mmol/L (3.5-5.1); Sodium Level 138 mmol/L (136-145)
--- NOTE | 2023-05-18 08:24 | PN.HOSP_ITS ---
Reason for Visit Reason for Visit: Diagnoses Other specified viral diseases (05/11/23) Pneumonia, unspecified organism (05/11/23) Chronic obstructive pulmonary disease, unspecified (05/11/23) Subjective Subjective Breathing ok. Ready to go home. Reports only having used chest therapy x1. Still with pain on left lateral foot. Objective Data Objective Data Vital Signs: Vital Signs Temp Pulse Resp BP Pulse Ox O2 Del Method O2 Flow Rate 36.7 C 93 16 140/86 H 94 Nasal Cannula 4 05/18/23 06:00 05/18/23 06:00 05/18/23 06:00 05/18/23 06:00 05/18/23 06:00 05/18/23 06:00 05/18/23 06:00 Oxygen Flow Rate (L/min) 4 Oxygen Delivery Method Nasal Cannula Weight: 53.6 kg Body Mass Index (BMI) 22.3 Intake & Output: Intake and Output for Last 24 Hours 05/16/23 05/17/23 05/18/23 23:59 23:59 23:59 Intake Total 270 / 490 1296.04 / 1396.04 150 / 150 Output Total 0 / 0 1700 / 1700 0 / 0 Balance 270 / 490 -403.96 / -303.96 150 / 150 Medical Nutrition Assessment Dietitian: Malnutrition Criteria Met Start: 05/12/23 14:43 Freq: Status: Active Protocol: Document 05/17/23 14:46 SLA (Rec: 05/17/23 14:46 SLA Desktop) Nutrition Malnutrition Evidence of Malnutrition Exists Yes Malnutrition (severe): Acute Illness/Injury Evidenced By Suboptimal Energy Intake ( Severe),Weight Loss (Severe) Clinical Problem Acute Disease or Injury Related Malnutrition Etiology severe protein-calorie malnutrition in the context of acute illness related to inadequate oral intake and altered GI function/diarrhea Signs/Symptoms as evidenced by ~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 Will change ensure clear BID to CIB w/ breakfast and dinner tray. Will continue magic cup ( vanilla) w/ lunch. Adjust ONS as needed to optimize PO and replete energy . Lab / Micro Data 05/18/23 05:51 05/18/23 05:51 Labs: Laboratory Results - last 24 hr 05/18/23 05:51: WBC 7.8, RBC 3.64 L, Hgb 10.7 L, Hct 33.6 L, MCV 92.3, MCH 29.4, MCHC 31.8 L, RDW Std Deviation 44.8 H, RDW Coeff of Alejandra 13.2, Plt Count 533 H, MPV 9.0, Immature Gran % (Auto) 0.900, Neut % (Auto) 57.4, Lymph % (Auto) 25.5, Hartley % (Auto) 11.0 H, Eos % (Auto) 4.3, Baso % (Auto) 0.9, Absolute Neuts (auto) 4.5, Absolute Lymphs (auto) 1.98, Nucleated RBC % 0, Sodium 138, Potassium 3.8, Chloride 102, Carbon Dioxide 33.0 H, Anion Gap 3 L, BUN 19 H, Creatinine 0.92, Estim Creat Clear Calc 47.84, Est GFR (MDRD) Af Amer 79, Est GFR (MDRD) Non-Af 66, BUN/Creatinine Ratio 20.7 H, Glucose 115 H, Calcium 9.1 Micro: Microbiology 05/16/23 10:37 Sputum, Expectorated/Coughed Gram Stain - Final 05/16/23 10:37 Sputum, Expectorated/Coughed Respiratory Culture - Pre liminary Appears to be normal respiratory chary. Further studies to follow. 05/16/23 10:00 Stool Stool Lactoferrin - Final 05/16/23 10:00 Stool Stool Occult Blood (FLO) - Final 05/11/23 12:55 Blood Culture (Wb) - Anticubital Right Blood Culture - Final No growth in 5 days. 05/11/23 13:00 Blood Culture (Wb) - Left Wrist Blood Culture - Final No growth in 5 days. 05/14/23 10:04 Nasal Secretion MRSA (PCR) - Final 05/13/23 15:06 Stool Enteric Bacteriology - Final 05/13/23 15:06 Stool Clostridioides difficile (PCR) - Final 05/11/23 11:37 Mucosa - Nasopharyngeal SARS-CoV-2, Influenza & RSV (PCR) - Final RSV Radiography Diagnostic Testing: Radiology Impression Chest X-Ray 05/17/23 07:45 IMPRESSION: Severe right lower lobe consolidation and moderate pleural effusion unchanged Electronically Signed: Josh Mason MD at 8:39 EDT , Chest CT 05/17/23 09:10 IMPRESSION: Interval decrease in size of the previously seen nodule in the right upper lobe. Progressive consolidation in the lateral aspect of the right middle lobe and right lower lobe with atelectasis at the left lung base. Electronically Signed: Bebeto Mariscal MD at 10:33 EDT , Physical Exam Const alert and no apparent distress HEENT head/scalp atraumatic and moist oral mucous membranes Resp normal respiratory effort and no retractions Resp Narrative: diminished BS in right base. Cardio regular rate, regular rhythm, S1 normal heart sound and S2 normal heart sound GI normal to inspection, nondistended, normoactive bowel sounds, soft to palpation and non-tender Extremity Extremity Narrative: TTP over left lateral foot w/o edema. Assessment & Plan Assessment/Plan (1) RSV infection: PLAN: Plan Diarrhea: * resolved Suspected gram negative pneumonia * RML infiltrate * on pip/tazo * complciated by RSV. * ID following * wean oxygen as able Hypoxia * CT showing RLL consolidation. Concerning for ATX. * Add PEP. Add vest therapy. * Added chest physiotherapy. * May need pulmonary input in no improvement. Chronic conditions: * Bipolar disorder, anxiety and multiple medications.: Continue home medications. * Fibromyalgia: Continue home pain medications including Zanaflex and hydrocodone * Hypertension: On lisinopril and Lasix at home, hold the medication for now given the hypokalemia DVT prophylaxis: Lovenox 40 mg subcu daily Charges/Coding Visit Charges Inpatient E&M: 10829 Subs Hosp L2
[2023-05-18] MEDS: HYDROcodone Bitartrate/Apap 5/325 Tablet PO ×3 (10:09→22:58)
[2023-05-18] MEDS: Fluticasone 0.05% 1 SPRAY NASAL.SRY 2 SPRAY NASAL (10:10)
[2023-05-18] MEDS: Menthol/Lanolin/Calamine/Znox 113 GM Tube 1 APPLIC TOPICAL ×2 (10:10→20:44)
[2023-05-18] MEDS: Enoxaparin 40 MG/0.4 ML Syringe SC (10:12)
[2023-05-18] MEDS: 0.9% Saline Lock 10 ML Syringe IV (10:48)
[2023-05-18] MEDS: Furosemide 40 MG/4 ML Vial IV (10:48)
[2023-05-18] MEDS: Escitalopram Oxalate 20 MG Tablet PO (10:48)
[2023-05-18] MEDS: Calcium Carbonate 500 MG Tablet 1000 MG PO (13:43)
[2023-05-18] MEDS: 0.9% Normal Saline (250mL Bag) 250 ML 15 ML IV (13:44)
[2023-05-18] MEDS: Amitriptyline 25 MG Tablet 50 MG PO (20:43)
[2023-05-18] MEDS: hydrOXYzine PAM 25 MG Capsule PO (20:44)
[2023-05-18] MEDS: Atorvastatin Calcium 40 MG Tablet PO (20:44)
[2023-05-19] VITALS (9 sets, daily range): BP systolic 116–126; BP diastolic 76–96; PULSE 85–90; RESP 15–20; TEMP 36.6–37.3; O2SAT 91–96
[2023-05-19] MEDS: Piperacil/Tazobactam 3.375 GM in 0.9% Normal Saline (50mL MB+) 50 ML IV ×3 (05:43→22:12)
[2023-05-19] MEDS: Pregabalin 25 MG Capsule PO ×3 (05:44→22:13)
[2023-05-19] MEDS: busPIRone 5 MG Tablet PO ×3 (05:44→22:12)
--- NOTE | 2023-05-19 07:52 | PN.HOSP_ITS ---
Reason for Visit Reason for Visit: Diagnoses Other specified viral diseases (05/11/23) Pneumonia, unspecified organism (05/11/23) Chronic obstructive pulmonary disease, unspecified (05/11/23) Subjective Subjective Feeling better. Still anxious to go home. Objective Data Objective Data Vital Signs: Vital Signs Temp Pulse Resp BP Pulse Ox O2 Del Method O2 Flow Rate 37.0 C 85 18 116/76 91 Nasal Cannula 4 05/19/23 02:00 05/19/23 02:00 05/19/23 02:00 05/19/23 02:00 05/19/23 02:00 05/19/23 04:00 05/19/23 04:00 Oxygen Flow Rate (L/min) 4 Oxygen Delivery Method Nasal Cannula Weight: 53.6 kg Body Mass Index (BMI) 22.3 Intake & Output: Intake and Output for Last 24 Hours 05/17/23 05/18/23 05/19/23 23:59 23:59 23:59 Intake Total 1296.04 / 1396.04 1290.5 / 1590.5 700 / 700 Output Total 1700 / 1700 0 / 0 Balance -403.96 / -303.96 1290.5 / 1590.5 700 / 700 Medical Nutrition Assessment Dietitian: Malnutrition Criteria Met Start: 05/12/23 14:43 Freq: Status: Active Protocol: Document 05/17/23 14:46 SLA (Rec: 05/17/23 14:46 SLA Desktop) Nutrition Malnutrition Evidence of Malnutrition Exists Yes Malnutrition (severe): Acute Illness/Injury Evidenced By Suboptimal Energy Intake ( Severe),Weight Loss (Severe) Clinical Problem Acute Disease or Injury Related Malnutrition Etiology severe protein-calorie malnutrition in the context of acute illness related to inadequate oral intake and altered GI function/diarrhea Signs/Symptoms as evidenced by ~5-6% unintentional weight 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 Will change ensure clear BID to CIB w/ breakfast and dinner tray. Will continue magic cup ( vanilla) w/ lunch. Adjust ONS as needed to optimize PO and replete energy . Lab / Micro Data 05/18/23 05:51 05/18/23 05:51 Micro: Microbiology 05/16/23 10:37 Sputum, Expectorated/Coughed Gram Stain - Final 05/16/23 10:37 Sputum, Expectorated/Coughed Respiratory Culture - Final 05/16/23 10:00 Stool Stool Lactoferrin - Final 05/16/23 10:00 Stool Stool Occult Blood (FLO) - Final 05/11/23 12:55 Blood Culture (Wb) - Anticubital Right Blood Culture - Final No growth in 5 days. 05/11/23 13:00 Blood Culture (Wb) - Left Wrist Blood Culture - Final No growth in 5 days. 05/14/23 10:04 Nasal Secretion MRSA (PCR) - Final 05/13/23 15:06 Stool Enteric Bacteriology - Final 05/13/23 15:06 Stool Clostridioides difficile (PCR) - Final 05/11/23 11:37 Mucosa - Nasopharyngeal SARS-CoV-2, Influenza & RSV (PCR) - Final RSV Physical Exam Const alert and no apparent distress HEENT head/scalp atraumatic and moist oral mucous membranes Resp Resp Narrative: diminished in RLL Cardio regular rate, regular rhythm, S1 normal heart sound and S2 normal heart sound GI normal to inspection, nondistended, normoactive bowel sounds Assessment & Plan Assessment/Plan (1) RSV infection: PLAN: Plan Diarrhea: * resolved Suspected gram negative pneumonia * RML infiltrate * on pip/tazo * complciated by RSV. * ID following * wean oxygen as able Hypoxia * CT showing RLL consolidation. Concerning for ATX. * Add PEP. Add vest therapy. * Added chest physiotherapy. * Minimal improvement. Consult pulmonary to see if any additional recommendations. * Pulm recommending scheduled ipratropium and acetylcysteine with follow up CXR in AM. Chronic conditions: * Bipolar disorder, anxiety and multiple medications.: Continue home medications. * Fibromyalgia: Continue home pain medications including Zanaflex and hydrocodone * Hypertension: On lisinopril and Lasix at home, hold the medication for now given the hypokalemia DVT prophylaxis: Lovenox 40 mg subcu daily Charges/Coding Visit Charges Inpatient E&M: 87848 Subs Hosp L2
--- NOTE | 2023-05-19 08:00 | CPS ---
Pt does not want vest treatment at this time. Said she wanted to sleep right now.
[2023-05-19] MEDS: Escitalopram Oxalate 20 MG Tablet PO (09:07)
[2023-05-19] MEDS: Fluticasone 0.05% 1 SPRAY NASAL.SRY 2 SPRAY NASAL (09:08)
[2023-05-19] MEDS: Enoxaparin 40 MG/0.4 ML Syringe SC (09:11)
[2023-05-19] MEDS: Menthol/Lanolin/Calamine/Znox 113 GM Tube 1 APPLIC TOPICAL ×2 (09:11→22:13)
[2023-05-19] MEDS: Furosemide 40 MG/4 ML Vial IV (09:13)
[2023-05-19] MEDS: HYDROcodone Bitartrate/Apap 5/325 Tablet PO ×3 (09:21→23:14)
--- NOTE | 2023-05-19 10:56 | PCMCONS.TICU ---
HPI Consult Data Date of Consult: 05/19/23 HPI Narrative Reason for Consultation: PNA, persistent consolidation HPI Narrative: 62YF PMH COPD, former tobacco abuse but reports quiting in her 20s, marijuana use, RA on meloxicam (reportedly hand/wrist involvement), CKD stage III, bipolar disorder who was initially admitted on 05/10 for RSV. She does not have a kier drier and at home is only on PRN albuterol. Hospital course cb by fever and she was transitioned to broad spectrum emp IV ABx. F/U CT imaging from 05/16 revealed on-going RML and new RLL conslidation with small Rt effusion prompting consult this morning for further evaluation. Pt reports feeling much better overall. Denies SOB. Has productive cough and she is bringing up clearer looking phlegm (previously discolored). She mobilizes up to the restroom and in bed and reports using IS freq. Currently on O2 @ 4 L with sats low/mid 90s. [facility] Medical History Bipolar 1 disorder COPD (chronic obstructive pulmonary disease) Fibromyalgia Hypertension NSTEMI (non-ST elevated myocardial infarction) Rheumatoid arthritis Home Medications albuterol sulfate 90 mcg/actuation aerosol inhaler (ProAir HFA) 2 puff inhalation Q4H PRN PRN Sob &/Or Wheezing 07/26/14 [History Last Taken 06/06/17] lisinopril 40 mg tablet (Zestril) 40 mg PO DAILY bp 07/26/14 [History Last Taken 06/07/17] nitroglycerin 0.4 mg sublingual tablet 0.4 mg sublingual PRN PRN CHEST PAIN 06/04/17 [History Last Taken Unknown] hyoscyamine sulfate 0.125 mg sublingual tablet 0.125 mg sublingual Q8H PRN dyspepsia 10/09/22 [History Last Taken Unknown] amitriptyline 100 mg tablet 100 mg PO QHS depresssion 10/10/22 [History Last Taken Unknown] hydroxyzine HCl 25 mg tablet 50 mg PO Q8H PRN anxiety 10/10/22 [History Last Taken Unknown] lisinopril 20 mg tablet 40 mg PO DAILY BP 10/10/22 [History Last Taken Unknown] meloxicam 7.5 mg tablet 7.5 mg PO DAILY pain 10/10/22 [History Last Taken Unknown] pregabalin 200 mg capsule 200 mg PO Q8H 10/10/22 [History Last Taken Unknown] sumatriptan succinate 50 mg tablet 50 mg PO PRN PRN migraine headache 10/10/22 [History Last Taken Unknown] ondansetron 4 mg disintegrating tablet 4 mg PO Q8H PRN PRN Nausea #14 tabs 11/14/22 [Rx Last Taken Unknown] atorvastatin 40 mg tablet 40 mg PO QHS Cholesterol 05/11/23 [History Last Taken Unknown] buspirone 5 mg tablet 5 mg PO TID Anxiety 05/11/23 [History Last Taken Unknown] dexlansoprazole 60 mg capsule,biphase delayed release 60 mg PO DAILY GERD 05/11/23 [History Last Taken Unknown] escitalopram oxalate 20 mg tablet 20 mg PO DAILY depression 05/11/23 [History Last Taken Unknown] fluticasone propionate 50 mcg/actuation nasal spray,suspension 2 spray intranasal DAILY allergies 05/11/23 [History Last Taken Unknown] furosemide 40 mg tablet 40 mg PO DAILY water pill 05/11/23 [History Last Taken Unknown] hydroxyzine HCl 50 mg tablet 50 mg PO TID Anxiety 05/11/23 [History Last Taken Unknown] pregabalin 25 mg capsule 25 mg PO BID Nerve pain 05/11/23 [History Last Taken Unknown] tizanidine 4 mg tablet 4 mg PO QHS PRN PRN muscle spasm 05/11/23 [History Last Taken Unknown] Allergy/AdvReac Type Severity Reaction Status Date / Time methotrexate Allergy Other Verified 05/11/23 11:21 nadolol Allergy Unknown Verified 05/11/23 11:21 prochlorperazine Allergy PT UNABLE Verified 05/11/23 11:21 TO RESPOND-NEEDS F/U baclofen AdvReac Other Verified 05/11/23 11:21 lorazepam [From Ativan] AdvReac Nausea Verified 11/14/22 10:49 propranolol AdvReac Other Verified 05/11/23 11:21 Social History Smoking Status: Former smoker ROS ROS Narrative Full 12 point ROS completed and neg unless stated in HPI above. Objective Data Objective Data Vital Signs: Vital Signs Last response Temperature 36.6 C 05/19/23 08:00 Temperature Source Oral 05/19/23 08:00 Pulse Rate 85 05/19/23 09:23 Pulse Strength Normal (2+) 05/18/23 22:00 Respiratory Rate 18 05/19/23 09:23 Respiratory Effort Normal 05/19/23 09:23 Respiratory Depth Normal 05/19/23 09:23 Respiratory Pattern Normal 05/19/23 09:23 Blood Pressure 118/80 05/19/23 08:00 Blood Pressure Mean 92 05/19/23 08:00 Blood Pressure Source Monitor 05/19/23 08:00 Blood Pressure Position Semi-Fowlers 05/19/23 08:00 Blood Pressure Location Right Arm 05/19/23 08:00 Pulse Ox 93 05/19/23 08:00 Oxygen Delivery Method Nasal Cannula 05/19/23 09:23 Oxygen Flow Rate (L/min) 4 05/19/23 09:23 I&O: I&O Last 24 Hours 05/18/23 05/18/23 05/19/23 11:59 23:59 11:59 Intake Total 200 / 1590.5 1090.5 / 1590.5 700 / 700 Output Total 0 / 0 Balance 200 / 1590.5 1090.5 / 1590.5 700 / 700 I&O: Total Stay 05/11/23 11:14 thru 05/19/23 06:00 Intake Total 29659.54 Output Total 2950 Balance 7646.54 Current Meds Ordered / Administered: Current meds ordered / Administered Generic Name Dose Route Start Last Admin Trade Name Freq PRN Reason Stop Dose Admin Acetaminophen 650 mg 05/13/23 04:27 05/15/23 13:52 Acetaminophen 325 Mg Tablet PO 650 mg Q4H PRN PRN Administration fever/pain 1-10 Hydrocodone Bitart/Acetaminophen 1 tablet 05/11/23 14:29 05/19/23 09:21 Hydrocodone Bitartrate/Apap 5/325 Tablet PO 1 tablet Q6H PRN PRN Administration Pain Score 1-10 Acetylcysteine 800 mg 05/19/23 11:00 Acetylcysteine 800 Mg/4 Ml Vial.Neb. INHALATION Q8H.RT DAVIS Albuterol/Ipratropium 3 ml 05/17/23 08:07 Ipratropium/Albuterol Sulfate 3 Ml Ampul.Neb INHALATION Q4HWA.RT PRN SHORTNESS OF BREATH Amitriptyline HCl 50 mg 05/15/23 22:00 05/18/23 20:43 Amitriptyline 25 Mg Tablet PO 50 mg QHS DAVIS Administration Atorvastatin Calcium 40 mg 05/15/23 22:00 05/18/23 20:44 Atorvastatin Calcium 40 Mg Tablet PO 40 mg QHS DAVIS Administration Buspirone HCl 5 mg 05/15/23 10:00 05/19/23 05:44 Buspirone 5 Mg Tablet PO 5 mg TID DAVIS Administration Calamine/Phenol 1 applic 05/12/23 10:00 05/19/23 09:11 Menthol/Lanolin/Calamine/Znox 113 Gm Tube TOPICAL 1 applic BID [facility] Administration Protocol Calcium Carbonate 1,000 mg 05/13/23 20:14 05/18/23 13:43 Calcium Carbonate 500 Mg Tablet PO 1,000 mg Q6H PRN PRN Administration DYSPEPSIA/INDIGESTION Enoxaparin Sodium 40 mg 05/12/23 10:00 05/19/23 09:11 Enoxaparin 40 Mg/0.4 Ml Syringe SC 40 mg DAILY [facility] Administration Escitalopram Oxalate 20 mg 05/16/23 14:35 05/19/23 09:07 Escitalopram Oxalate 20 Mg Tablet PO 20 mg DAILY [facility] Administration Fluticasone Propionate 2 spray 05/12/23 10:00 05/19/23 09:08 Fluticasone 0.05% 1 [place] Nasal.Sry NASAL 2 spray DAILY [facility] Administration Furosemide 40 mg 05/14/23 17:05 05/19/23 09:13 Furosemide 40 Mg/4 Ml Vial IV 40 mg DAILY [facility] Administration Protocol Guaifenesin 2 tablet 05/12/23 11:05 05/19/23 09:09 Guaifenesin/D-Methorphan Tab.Sr.12h PO Not Given BID [facility] Hydroxyzine Pamoate 25 mg 05/12/23 11:06 05/18/23 20:44 Hydroxyzine Danette 25 Mg Capsule PO 25 mg Q8H PRN PRN Administration anxiety Sodium Chloride 250 mls @ 15 mls/hr 05/11/23 14:34 05/18/23 18:17 IV 15 mls/hr .[id number] PRN Infusion Additional IVPB Infusion Sodium Chloride 250 mls @ 15 mls/hr 05/11/23 14:34 IV .[id number] PRN Saline Flush Piperacillin Sod/Tazobactam 50 mls @ 12.5 mls/hr 05/14/23 09:15 05/19/23 05:43 Sod 3.375 gm/ Sodium Chloride IV 12.5 mls/hr Q8 DAVIS Administration Pregabalin 25 mg 05/15/23 15:30 05/19/23 05:44 Pregabalin 25 Mg Capsule PO 25 mg TID DAVIS Administration Sodium Chloride 10 - 40 ml 05/11/23 14:34 05/18/23 10:48 0.9% Saline Lock 10 Ml Syringe IV 10 ml UD PRN Administration SALINE FLUSH Tizanidine HCl 4 mg 05/11/23 14:32 05/14/23 17:13 Tizanidine Hcl 2 Mg Tablet PO 4 mg QHS PRN PRN Administration muscle spasm Medical Records Data Medical Nutrition Assessment Dietitian: Malnutrition Criteria Met Start: 05/12/23 14:43 Freq: Status: Active Protocol: Document 05/17/23 14:46 BANDAR (Rec: 05/17/23 14:46 SLA Desktop) Nutrition Malnutrition Evidence of Malnutrition Exists Yes Malnutrition (severe): Acute Illness/Injury Evidenced By Suboptimal Energy Intake ( Severe),Weight Loss (Severe) Clinical Problem Acute Disease or Injury Related Malnutrition Etiology severe protein-calorie malnutrition in the context of acute illness related to inadequate oral intake and altered GI function/diarrhea Signs/Symptoms as evidenced by ~5-6% 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 Will change ensure clear BID to CIB w/ breakfast and dinner tray. Will continue magic cup ( vanilla) w/ lunch. Adjust ONS as needed to optimize PO and replete energy . Lab / Micro Data 05/18/23 05:51 05/18/23 05:51 Micro: Microbiology 05/16/23 10:37 Sputum, Expectorated/Coughed Gram Stain - Final 05/16/23 10:37 Sputum, Expectorated/Coughed Respiratory Culture - Final Assessment and Plan . Assessment and plan: A/P General: Well developed, chronically ill appearing female; in no distress HEENT: anicteric Sclera, nl nose; poor dentition; supple neck, no masses Cardiovascular: S1/S2; No rubs, gallops; no displaced PM Respiratory: diminished; no crackles, wheezes, or rhonchi Abdominal: Non-tender; Non distended; hypoBS x 4; No Hepatosplenomegaly Extremities: Warm, well perfused; No cyanosis; capillary refill < 2 sec Skin: intact, no rashes Neurological: no gross deficits appreciated; A&Ox3 Psych: pleasant affect; no hallucinations A/P #Acute hypoxemic respiratory failure #RSV #PNA with small effusion #?Atelectasis/mucus plugging -Cont O2; titrate to sats ~90-92%; cont freq IS use and encouraged mobilization -Sig subjective improvement but on-going consolidative changes in RML/RLL on F/U imaging which may be 2* to concomitant bacterial PNA vs atelectasis -Added scheduled q4h ipratropium while awake (reported feeling jittery/tremulous with albuterol) & q8h Mucomyst to see if conservative measures help; F/U AM CXR and if changes persist/worsening can consider further bronchoscopic evaluation for diagnostic/therapeutic purposes and to facilitate discharge plans The entirety of this encounter was done via Telemedicine
[2023-05-19] MEDS: Acetylcysteine 800 MG/4 ML VIAL.NEB. INHALATION ×2 (14:02→20:55)
[2023-05-19] MEDS: Ipratropium 0.5 MG/2.5 ML SOLUTION INHALATION ×2 (14:02→20:55)
[2023-05-19] MEDS: Amitriptyline 25 MG Tablet 50 MG PO (22:12)
[2023-05-19] MEDS: 0.9% Saline Lock 10 ML Syringe IV (22:12)
[2023-05-19] MEDS: tiZANidine HCl 2 MG Tablet 4 MG PO (22:13)
[2023-05-19] MEDS: Atorvastatin Calcium 40 MG Tablet PO (22:13)
[2023-05-20 04:00] VITALS: BP 111/70; PULSE 81; RESP 16; TEMP 36.8; O2SAT 95
[2023-05-20 04:26] VITALS: O2SAT 95
--- NOTE | 2023-05-20 06:15 | RAD_ITS ---
EXAM: XR CHEST, 1 VIEW CLINICAL INDICATION: PNA F/U TECHNIQUE: Frontal view of the chest. COMPARISON: 05/17/2023. CT scan of the chest 05/17/2023. FINDINGS: LUNGS AND PLEURAL SPACES: Subsegmental atelectasis left lower lobe. No pneumothorax. No change atelectasis/consolidation right lower lobe with small right pleural effusion. HEART: Unremarkable. Cardiac silhouette not enlarged. MEDIASTINUM: Central airways and mediastinal contour are unremarkable. BONES/JOINTS: Unremarkable. No acute fracture. SOFT TISSUES: Unremarkable. RAD/Chest 1 View (Portable) IMPRESSION: 1. No change atelectasis/consolidation right lower lobe with small right pleural effusion. 2. Subsegmental atelectasis left lower lobe. Electronically Signed: Fareed Hendrickson MD at 7:52 EDT ,
[2023-05-20] MEDS: Piperacil/Tazobactam 3.375 GM in 0.9% Normal Saline (50mL MB+) 50 ML IV (06:33)
[2023-05-20] MEDS: Pregabalin 25 MG Capsule PO (06:33)
[2023-05-20] MEDS: busPIRone 5 MG Tablet PO (06:33)
[2023-05-20 07:01] VITALS: PULSE 88; RESP 20; O2SAT 96
[2023-05-20] MEDS: Acetylcysteine 800 MG/4 ML VIAL.NEB. INHALATION (07:01)
[2023-05-20] MEDS: Ipratropium 0.5 MG/2.5 ML SOLUTION INHALATION (07:01)
--- NOTE | 2023-05-20 07:57 | PCM.PN.HOSP ---
Reason for Visit Reason for Visit: Diagnoses Other specified viral diseases (05/11/23) Pneumonia, unspecified organism (05/11/23) Chronic obstructive pulmonary disease, unspecified (05/11/23) Subjective Subjective Breathing better. Objective Data Objective Data Vital Signs: Vital Signs Temp Pulse Resp BP Pulse Ox O2 Del Method O2 Flow Rate 36.8 C 81 16 111/70 95 Nasal Cannula 3 05/20/23 04:00 05/20/23 04:00 05/20/23 04:00 05/20/23 04:00 05/20/23 04:26 05/20/23 04:26 05/20/23 04:26 Oxygen Flow Rate (L/min) 3 Oxygen Delivery Method Nasal Cannula Weight: 53.6 kg Body Mass Index (BMI) 22.3 Intake & Output: Intake and Output for Last 24 Hours 05/18/23 05/19/23 05/20/23 23:59 23:59 23:59 Intake Total 1290.5 / 1590.5 1749.5 / 1749.5 50 / 50 Output Total 0 / 0 300 / 300 300 / 300 Balance 1290.5 / 1590.5 1449.5 / 1449.5 -250 / -250 Medical Nutrition Assessment Dietitian: Malnutrition Criteria Met Start: 05/12/23 14:43 Freq: Status: Active Protocol: Document 05/17/23 14:46 SLA (Rec: 05/17/23 14:46 SLA Desktop) Nutrition Malnutrition Evidence of Malnutrition Exists Yes Malnutrition (severe): Acute Illness/Injury Evidenced By Suboptimal Energy Intake ( Severe),Weight Loss (Severe) Clinical Problem Acute Disease or Injury Related Malnutrition Etiology severe protein-calorie malnutrition in the context of acute illness related to inadequate oral intake and altered GI function/diarrhea Signs/Symptoms as evidenced by ~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 Will change ensure clear BID to CIB w/ breakfast and dinner tray. Will continue magic cup ( vanilla) w/ lunch. Adjust ONS as needed to optimize PO and replete energy . Lab / Micro Data 05/18/23 05:51 05/18/23 05:51 Micro: Microbiology 05/16/23 10:37 Sputum, Expectorated/Coughed Gram Stain - Final 05/16/23 10:37 Sputum, Expectorated/Coughed Respiratory Culture - Final 05/16/23 10:00 Stool Stool Lactoferrin - Final 05/16/23 10:00 Stool Stool Occult Blood (FLO) - Final 05/11/23 12:55 Blood Culture (Wb) - Anticubital Right Blood Culture - Final No growth in 5 days. 05/11/23 13:00 Blood Culture (Wb) - Left Wrist Blood Culture - Final No growth in 5 days. 05/14/23 10:04 Nasal Secretion MRSA (PCR) - Final 05/13/23 15:06 Stool Enteric Bacteriology - Final 05/13/23 15:06 Stool Clostridioides difficile (PCR) - Final 05/11/23 11:37 Mucosa - Nasopharyngeal SARS-CoV-2, Influenza & RSV (PCR) - Final RSV Radiography Diagnostic Testing: Radiology Impression Chest X-Ray 05/20/23 06:15 IMPRESSION: 1. No change atelectasis/consolidation right lower lobe with small right pleural effusion. 2. Subsegmental atelectasis left lower lobe. Electronically Signed: Fareed Hendrickson MD at 7:52 EDT , Physical Exam Const alert and no apparent distress HEENT head/scalp atraumatic Resp normal respiratory effort, no retractions, no use of accessory muscles and clear to auscultation bilaterally Cardio regular rate, regular rhythm, S1 normal heart sound and S2 normal heart sound GI normal to inspection, nondistended, normoactive bowel sounds, soft to palpation, non-tender and non-distended Extremity normal to inspection Assessment & Plan Assessment/Plan (1) RSV infection: PLAN: Plan Diarrhea: resolved Suspected gram negative pneumonia RML infiltrate on pip/tazo complciated by RSV. ID following wean oxygen as able Hypoxia CT showing RLL consolidation. Concerning for ATX. Add PEP. Add vest therapy. Added chest physiotherapy. Minimal improvement. Consult pulmonary to see if any additional recommendations. Pulm recommending scheduled ipratropium and acetylcysteine with follow up CXR in AM. GIUSEPPE [place], pt to follow up with pulmonary and have repeat CXR. Will require oxygen at home. Patient is ambulatory in home and in the community and requires home oxygen with portability. Chronic conditions: Bipolar disorder, anxiety and multiple medications.: Continue home medications. Fibromyalgia: Continue home pain medications including Zanaflex and hydrocodone Hypertension: On lisinopril and Lasix at home, hold the medication for now given the hypokalemia DVT prophylaxis: Lovenox 40 mg subcu daily
[2023-05-20 09:25] VITALS: BP 134/79; PULSE 87; RESP 18; TEMP 36.7; O2SAT 94
[2023-05-20] MEDS: Fluticasone 0.05% 1 SPRAY NASAL.SRY 2 SPRAY NASAL (09:27)
[2023-05-20] MEDS: Menthol/Lanolin/Calamine/Znox 113 GM Tube 1 APPLIC TOPICAL (09:27)
[2023-05-20] MEDS: 0.9% Saline Lock 10 ML Syringe IV (09:28)
[2023-05-20] MEDS: Furosemide 40 MG/4 ML Vial IV (09:28)
[2023-05-20] MEDS: Enoxaparin 40 MG/0.4 ML Syringe SC (09:29)
[2023-05-20] MEDS: Escitalopram Oxalate 20 MG Tablet PO (09:29)
[2023-05-20] MEDS: HYDROcodone Bitartrate/Apap 5/325 Tablet PO (09:33)
--- NOTE | 2023-05-20 11:01 | PN.CC_ITS ---
Assessment & Plan Assessment/Plan (1) Hypoxia: (2) RSV infection: (3) Community acquired pneumonia: PLAN: Plan RECOMMENDATIONS: 1. Continue to wean supplemental oxygen to maintain saturations at or above 90%. 2. Continue antibiotics to complete 7 days of therapy. 3. Continue aggressive bronchopulmonary hygiene. 4. Continue bronchodilator therapy. 5. Encourage incentive spirometer use and mobilize patient as tolerated. 6. Outpatient pulmonary follow-up after discharge. Recommend repeat chest imaging in 6 to 8 weeks to document resolution. IMPRESSIONS: 1. 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 She was admitted with an exacerbation related to RSV coupled with probable secondary bacterial pneumonia. The patient appears to be improving clinically on bronchodilator therapy and antimicrobials. As such, I would continue current supportive care. Supplemental oxygen can be weaned to maintain saturations at or above 90%. I would recommend continuing antibiotics to complete 7 days of therapy. Lastly, I would recommend that the patient follow-up in the pulmonary medicine clinic after discharge so that repeat chest imaging can be completed in 6 to 8 weeks to document resolution of the patient's right lower lobe consolidation. 2. History of COPD/fibromyalgia/rheumatoid arthritis/hypertension/bipolar d isorder Complicates care, management, recovery and prognosis. Continue home medications as indicated. Perform walking oximetry study prior to consideration for discharge home. This note was generated with [employer] dictation software. It may contain incorrect words, spelling, and punctuation that were not noted in checking the note before signing. Subjective Subjective The patient was seen and examined at the bedside this morning. Events from the last 24 hours have been reviewed. The patient is currently afebrile, hemodynamically stable and maintaining appropriate oxygen saturations on 3 L/min via nasal cannula. The patient reported that she feels much improved from a respiratory perspective with less shortness of breath. In addition, she reported that her cough is no longer productive of green to yellow sputum. She does appear anxious to be discharged home. Objective Data Objective Data The patient's most recent lab work, culture data and imaging studies have all been personally reviewed. Respiratory viral panel was positive for RSV on May 10. Vital Signs: Vital Signs Temp Pulse Resp BP Pulse Ox O2 Del Method O2 Flow Rate 98.1 F 87 18 134/79 H 94 Nasal Cannula 3 05/20/23 09:25 05/20/23 09:25 05/20/23 09:25 05/20/23 09:25 05/20/23 09:25 05/20/23 09:25 05/20/23 09:25 Oxygen Flow Rate (L/min) 3 Oxygen Delivery Method Nasal Cannula Weight: 118 lb 2.684 oz Body Mass Index (BMI) 22.3 Intake & Output: Intake and Output for Last 24 Hours 05/18/23 05/19/23 05/20/23 23:59 23:59 23:59 Intake Total 1290.5 / 1590.5 1749.5 / 1749.5 100 / 100 Output Total 0 / 0 300 / 300 300 / 300 Balance 1290.5 / 1590.5 1449.5 / 1449.5 -200 / -200 Medical Nutrition Assessment Dietitian: Malnutrition Criteria Met Start: 05/12/23 14:43 Freq: Status: Active Protocol: Document 05/17/23 14:46 SLA (Rec: 05/17/23 14:46 SLA Desktop) Nutrition Malnutrition Evidence of Malnutrition Exists Yes Malnutrition (severe): Acute Illness/Injury Evidenced By Suboptimal Energy Intake ( Severe),Weight Loss (Severe) Clinical Problem Acute Disease or Injury Related Malnutrition Etiology severe protein-calorie malnutrition in the context of acute illness related to inadequate oral intake and altered GI function/diarrhea Signs/Symptoms as evidenced by ~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 Will change ensure clear BID to CIB w/ breakfast and dinner tray. Will continue magic cup ( vanilla) w/ lunch. Adjust ONS as needed to optimize PO and replete energy . Lab / Micro Data Attestation: I reviewed the patient's lab results. 05/18/23 05:51 05/18/23 05:51 Micro: Microbiology 05/16/23 10:37 Sputum, Expectorated/Coughed Gram Stain - Final 05/16/23 10:37 Sputum, Expectorated/Coughed Respiratory Culture - Final 05/16/23 10:00 Stool Stool Lactoferrin - Final 05/16/23 10:00 Stool Stool Occult Blood (FLO) - Final 05/11/23 12:55 Blood Culture (Wb) - Anticubital Right Blood Culture - Final No growth in 5 days. 05/11/23 13:00 Blood Culture (Wb) - Left Wrist Blood Culture - Final No growth in 5 days. 05/14/23 10:04 Nasal Secretion MRSA (PCR) - Final 05/13/23 15:06 Stool Enteric Bacteriology - Final 05/13/23 15:06 Stool Clostridioides difficile (PCR) - Final 05/11/23 11:37 Mucosa - Nasopharyngeal SARS-CoV-2, Influenza & RSV (PCR) - Final RSV Radiography Diagnostic Testing: Radiology Impression Chest X-Ray 05/20/23 06:15 IMPRESSION: 1. No change atelectasis/consolidation right lower lobe with small right pleural effusion. 2. Subsegmental atelectasis left lower lobe. Electronically Signed: Fareed Hendrickson MD at 7:52 EDT , Physical Exam Const alert and no apparent distress Constitutional Narrative: A bit anxious in appearance. General Appearance: cooperative HEENT normocephalic and head/scalp atraumatic Eyes PERRL, EOMs intact bilaterally and conjunctivae normal Neck supple General: trachea midline Chest inspection of chest normal Resp normal respiratory effort Auscultation: diminished lung sounds Cardio regular rate and regular rhythm GI normal to inspection, nondistended, normoactive bowel sounds Extremity no clubbing, cyanosis or edema Skin no rashes or lesions noted Neuro CN's II-XII intact bilaterally and no focal motor deficits Psych cooperative Charges/Coding Visit Charges Inpatient E&M: 04391 Subs Hosp L2
--- NOTE | 2023-05-20 11:18 | DS.PCM_ITS ---
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 EMERGENT Consult: No Notified: Yes Date Notified: 05/19/23 Time Notified: 07:53 Method of Notification: Text Reason For Visit: DIARRHEA Diagnosis Discharge Diagnosis (1) RSV infection: Status: Acute Code(s): B33.8 - Other specified viral diseases Plan Diarrhea: * resolved Suspected gram negative pneumonia * RML infiltrate * on pip/tazo * complciated by RSV. * ID following * wean oxygen as able Hypoxia * CT showing RLL consolidation. Concerning for ATX. * Add PEP. Add vest therapy. * Added chest physiotherapy. * Minimal improvement. Consult pulmonary to see if any additional recommendations. * Pulm recommending scheduled ipratropium and acetylcysteine with follow up CXR in AM. * DW Dr. Willams, pt to follow up with pulmonary and have repeat CXR. * Will require oxygen at home. * Patient is ambulatory in home and in the community and requires home oxygen with portability. Chronic conditions: * Bipolar disorder, anxiety and multiple medications.: Continue home med ications. * Fibromyalgia: Continue home pain medications including Zanaflex and hydrocodone * Hypertension: On lisinopril and Lasix at home, hold the medication for now given the hypokalemia DVT prophylaxis: Lovenox 40 mg subcu daily Medications at Discharge Home Medications albuterol sulfate 90 mcg/actuation aerosol inhaler (ProAir HFA) 2 puff inhalation Q4H PRN PRN Sob &/Or Wheezing 07/26/14 nitroglycerin 0.4 mg sublingual tablet 0.4 mg sublingual PRN PRN CHEST PAIN 06/04/17 hyoscyamine sulfate 0.125 mg sublingual tablet 0.125 mg sublingual Q8H PRN dyspepsia 10/09/22 amitriptyline 100 mg tablet 100 mg PO QHS depresssion 10/10/22 hydroxyzine HCl 25 mg tablet 50 mg PO Q8H PRN anxiety 10/10/22 meloxicam 7.5 mg tablet 7.5 mg PO DAILY pain 10/10/22 pregabalin 200 mg capsule 200 mg PO Q8H 10/10/22 sumatriptan succinate 50 mg tablet 50 mg PO PRN PRN migraine headache 10/10/22 ondansetron 4 mg disintegrating tablet 4 mg PO Q8H PRN PRN Nausea #14 tabs 11/14/22 atorvastatin 40 mg tablet 40 mg PO QHS Cholesterol 05/11/23 buspirone 5 mg tablet 5 mg PO TID Anxiety 05/11/23 dexlansoprazole 60 mg capsule,biphase delayed release 60 mg PO DAILY GERD 05/11/23 escitalopram oxalate 20 mg tablet 20 mg PO DAILY depression 05/11/23 fluticasone propionate 50 mcg/actuation nasal spray,suspension 2 spray intranasal DAILY allergies 05/11/23 furosemide 40 mg tablet 40 mg PO DAILY water pill 05/11/23 hydroxyzine HCl 50 mg tablet 50 mg PO TID Anxiety 05/11/23 pregabalin 25 mg capsule 25 mg PO BID Nerve pain 05/11/23 tizanidine 4 mg tablet 4 mg PO QHS PRN PRN muscle spasm 05/11/23 acetaminophen 325 mg tablet 1,000 mg (3.0769 x 325 mg) PO Q8H PRN PRN fever/pain 1-10 #0 tabs 05/20/23 amoxicillin 875 mg-potassium clavulanate 125 mg tablet 1 tab PO BID #4 tabs 05/20/23 dextromethorphan-guaifenesin 30 mg-600 mg tablet extended [id number] hr (Mucinex DM) 2 tab PO BID #14 tabs 05/20/23 Hospital Course Operations None Procedures None Summary of Care Provided Minutes Spent on Discharge: 32 Hospital Course: Patient presents with diarrhea and shortness of breath. Patient had just been discharged with pneumonia to come back with increasing shortness of breath. Chest x-ray showed right lower lobe infiltrate. Patient was started on antibiotics. Additionally, patient was noted to have RSV. Patient was on 5 L nasal cannula but did not progress. Vest therapy was ensued and still required for amount of oxygen with 4 L. Pulmonary was consulted who added Mucomyst. Patient did better. Patient will be discharged home. Patient follow-up pulm onary, have repeat chest x-ray in the future and continue with antibiotics. Medical Records Data Medical Nutrition Assessment Dietitian: Malnutrition Criteria Met Start: 05/12/23 14:43 Freq: Status: Active Protocol: Document 05/17/23 14:46 SLA (Rec: 05/17/23 14:46 SLA Desktop) Nutrition Malnutrition Evidence of Malnutrition Exists Yes Malnutrition (severe): Acute Illness/Injury Evidenced By Suboptimal Energy Intake ( Severe),Weight Loss (Severe) Clinical Problem Acute Disease or Injury Related Malnutrition Etiology severe protein-calorie malnutrition in the context of acute illness related to inadequate oral intake and altered GI function/diarrhea Signs/Symptoms as evidenced by ~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 Will change ensure clear BID to CIB w/ breakfast and dinner tray. Will continue magic cup ( vanilla) w/ lunch. Adjust ONS as needed to optimize PO and replete energy . Weight / BMI Weight Weight: 53.6 kg Body Mass Index (BMI) 22.3 ABG / Lab / Microbiology Data 05/18/23 05:51 05/18/23 05:51 Microbiology: Microbiology 05/16/23 10:37 Sputum, Expectorated/Coughed Gram Stain - Final 05/16/23 10:37 Sputum, Expectorated/Coughed Respiratory Culture - Final 05/16/23 10:00 Stool Stool Lactoferrin - Final 05/16/23 10:00 Stool Stool Occult Blood (FLO) - Final 05/11/23 12:55 Blood Culture (Wb) - Anticubital Right Blood Culture - Final No growth in 5 days. 05/11/23 13:00 Blood Culture (Wb) - Left Wrist Blood Culture - Final No growth in 5 days. 05/14/23 10:04 Nasal Secretion MRSA (PCR) - Final 05/13/23 15:06 Stool Enteric Bacteriology - Final 05/13/23 15:06 Stool Clostridioides difficile (PCR) - Final 05/11/23 11:37 Mucosa - Nasopharyngeal SARS-CoV-2, Influenza & RSV (PCR) - Final RSV Radiography Diagnostic Testing: Radiology Impression Chest X-Ray 03/18/24 06:15 IMPRESSION: 1. No change atelectasis/consolidation right lower lobe with small right pleural effusion. 2. Subsegmental atelectasis left lower lobe. Electronically Signed: Fareed Hendrickson MD at 7:52 EDT , D/C Instructions Discharge Diet: No restrictions Meaningful Use Info Meaningful Use Diagnoses (Choose all that apply): None applicable Discharge Plan Admission Admit Date/Time: 05/11/23 14:16 Primary Reason for Your Visit: Pneumonia Attending Provider: Trey Joe Primary Care Provider: DALI FRAGOSO Consulting Providers: Himanshu Aldana; Sid Hillman; Merrick White; Roque Mirza; Chato Jon; Kun Willams; Domingo Penn; Patricia Dyer; Frederic Gómez; Danielle Miguel; [place]; Grover Urias; Norman Lozano; Joel Holguin; Rahul Jaimes Discharge Orders/Prescriptions Prescriptions: New Mucinex DM 30-600 mg Tablet Extended Release 12 Hr 2 tab PO BID Qty: 14 0RF acetaminophen 325 mg Tablet 1,000 mg PO Q8H PRN PRN (Reason: fever/pain 1-10) Qty: 0 0RF amoxicillin-pot clavulanate 875-125 mg tablet 1 tab PO BID Qty: 4 0RF Continued albuterol sulfate [ProAir HFA] 1 PUFF inhaler 2 puff inhalation Q4H PRN PRN (Reason: Sob &/Or Wheezing) nitroglycerin 0.4 MG tablet, sublingual 0.4 mg sublingual PRN PRN (Reason: CHEST PAIN) ondansetron 4 mg tablet,disintegrating 4 mg PO Q8H PRN PRN (Reason: Nausea) Qty: 14 0RF hyoscyamine sulfate 0.125 mg tablet, sublingual 0.125 mg sublingual Q8H PRN (Reason: dyspepsia) Patient Comments: DISSOLVE 1 TABLET UNDER THE TONGUE THREE TIMES DAILY NEEDED amitriptyline 100 mg tablet 100 mg PO QHS hydroxyzine HCl 25 mg tablet 50 mg PO Q8H PRN (Reason: anxiety) Patient Comments: TAKE TWO TABLETS BY MOUTH EVERY 8 HOURS NEEDED (VIAL) sumatriptan succinate 50 mg tablet 50 mg PO PRN PRN (Reason: migraine headache) meloxicam 7.5 mg tablet 7.5 mg PO DAILY Patient Comments: TAKE ONE TABLET BY MOUTH DAILY AT 9AM pregabalin 200 mg capsule 200 mg PO Q8H escitalopram oxalate 20 mg tablet 20 mg PO DAILY fluticasone propionate 50 mcg/actuation spray,suspension 2 spray INTRANASAL DAILY furosemide 40 mg tablet 40 mg PO DAILY tizanidine 4 mg tablet 4 mg PO QHS PRN PRN (Reason: muscle spasm) atorvastatin 40 mg tablet 40 mg PO QHS buspirone 5 mg tablet 5 mg PO TID dexlansoprazole 60 mg capsule,biphase delayed releas 60 mg PO DAILY hydroxyzine HCl 50 mg tablet 50 mg PO TID pregabalin 25 mg capsule 25 mg PO BID Discontinued lisinopril [Zestril] 40 MG tablet 40 mg PO DAILY lisinopril 20 mg tablet 40 mg PO DAILY Referrals / Follow Up: Pulmonary Medicine [facility] Rubalcava [Provider Group] - Within 1 Month DALI FRAGOSO NP-C [Primary Care Provider] - Within 2 Weeks Disposition Disposition (needs filled in before D/C Order can be placed): Home, Self Care Charges/Coding Visit Charges Inpatient E&M: 55269 Disch Hosp >30min
[2023-05-20 11:50] VITALS: BP 134/79; PULSE 87; RESP 18; TEMP 36.7; O2SAT 94
[2023-05-20 12:07] VITALS: O2SAT 85; O2SAT 86; O2SAT 90; O2SAT 94
--- NOTE | 2023-05-20 12:16 | PHA.DC_ITS ---
Pharmacy [facility] has performed discharge medication reconciliation and counseling for this patient. The patient's discharge medication list was reviewed for discrepancies and discrepancies were resolved. The patient was counseled on the following discharge medications and changes in medications for homegoing were reviewed. The Reason for Use, instructions for use, and potential side effects were reviewed for all new medications. The patient's questions regarding all of their medications were answered. 1. Augmentin 875 PO BID x 2 days 2. Mucinex DM ER BID x 7 days 3. Acetaminophen 1000 mg PO Q8H PRN pain The patient was able to verbally demonstrate an understanding of their discharge medications. Medications at Discharge Home Medications albuterol sulfate 90 mcg/actuation aerosol inhaler (ProAir HFA) 2 puff inhalation Q4H PRN PRN Sob &/Or Wheezing 07/26/14 nitroglycerin 0.4 mg sublingual tablet 0.4 mg sublingual PRN PRN CHEST PAIN 06/04/17 hyoscyamine sulfate 0.125 mg sublingual tablet 0.125 mg sublingual Q8H PRN dyspepsia 10/09/22 amitriptyline 100 mg tablet 100 mg PO QHS depresssion 10/10/22 hydroxyzine HCl 25 mg tablet 50 mg PO Q8H PRN anxiety 10/10/22 meloxicam 7.5 mg tablet 7.5 mg PO DAILY pain 10/10/22 pregabalin 200 mg capsule 200 mg PO Q8H 10/10/22 sumatriptan succinate 50 mg tablet 50 mg PO PRN PRN migraine headache 10/10/22 ondansetron 4 mg disintegrating tablet 4 mg PO Q8H PRN PRN Nausea #14 tabs 11/14/22 atorvastatin 40 mg tablet 40 mg PO QHS Cholesterol 05/11/23 buspirone 5 mg tablet 5 mg PO TID Anxiety 05/11/23 dexlansoprazole 60 mg capsule,biphase delayed release 60 mg PO DAILY GERD 05/11/23 escitalopram oxalate 20 mg tablet 20 mg PO DAILY depression 05/11/23 fluticasone propionate 50 mcg/actuation nasal spray,suspension 2 spray intranasal DAILY allergies 05/11/23 furosemide 40 mg tablet 40 mg PO DAILY water pill 05/11/23 hydroxyzine HCl 50 mg tablet 50 mg PO TID Anxiety 05/11/23 pregabalin 25 mg capsule 25 mg PO BID Nerve pain 05/11/23 tizanidine 4 mg tablet 4 mg PO QHS PRN PRN muscle spasm 05/11/23 acetaminophen 325 mg tablet 1,000 mg (3.0769 x 325 mg) PO Q8H PRN PRN fever/pain 1-10 #0 tabs 05/20/23 amoxicillin 875 mg-potassium clavulanate 125 mg tablet 1 tab PO BID #4 tabs 05/20/23 dextromethorphan-guaifenesin 30 mg-600 mg tablet extended [id number] hr (Mucinex DM) 2 tab PO BID #14 tabs 05/20/23
[2023-05-25 12:46] LABS: Giardia Lamblia, Stool EIA Negative
== END 2023-05-20 14:44 | disposition home or self-care (01) | DRG 193 ==
LOC: ED 13:51 → PCU 15:03
PROVIDERS: Internal Medicine; Nurse Practitioner; Admitting Provider Internal Medicine; Emergency Provider Emergency Medicine; PCP Nurse Practitioner
DX: J12.1 Respiratory syncytial virus pneumonia (principal); E43 Unspecified severe protein-calorie malnutrition; J98.11 Atelectasis; F31.9 Bipolar disorder, unspecified; I10 Essential (primary) hypertension; J15.69 Pneumonia due to other Gram-negative bacteria; E87.6 Hypokalemia; I25.10 Atherosclerotic heart disease of native coronary artery without angina pectoris; M79.7 Fibromyalgia; F41.9 Anxiety disorder, unspecified; R19.7 Diarrhea, unspecified; I25.2 Old myocardial infarction; R09.02 Hypoxemia; Z68.22 Body mass index [BMI] 22.0-22.9, adult; Z79.899 Other long term (current) drug therapy; Z87.891 Personal history of nicotine dependence
CPT/HCPCS: 36415; 71045; 71046; 71260; 74177; 80048; 80053; 81001; 82248; 82274; 83605; 83630; 83690; 83735; 84100; 84132; 84443; 85025; 85610; 87040; 87070; 87205; 87329; 87493; 87506; 87631; 87641; 92610; 93005; 94640; 94667; 94668; 97116; 97162; 97166; 97530; 97535; 97802; 99283; J7030; J7040; J7050; J7120; Q9967; A4216; J0295; J1940; J2405

== ENCOUNTER 2023-06-04 11:11 | Inpatient (IN) | payer MEDICARE, MEDICAID, SELFPAY ==
[2023-06-04] VITALS (20 sets, daily range): BP systolic 128–212; BP diastolic 69–172; PULSE 82–97; RESP 10–26; TEMP 36.1–37.3; O2SAT 88–94; BMI 25.3; BMI 24.4
--- NOTE | 2023-06-04 11:18 | EKG12_ITS ---
Test Reason : SOB Blood Pressure : / mmHG Vent. Rate : 084 BPM Atrial Rate : 084 BPM P-R Int : 154 ms QRS Dur : 064 ms QT Int : 400 ms P-R-T Axes : 030 061 065 degrees QTc Int : 472 ms Normal sinus rhythm Possible Left atrial enlargement ST & T wave abnormality, consider anterolateral ischemia Prolonged QT Abnormal ECG Confirmed by JOSESITO COOK, ISABELLE ([id number]), telegraph editor GUSTAVO VICENTE ([id number]) on 06/05/2023 9:33:52 AM Referred By: Confirmed By:ISABELLE BELLAMY MD
--- NOTE | 2023-06-04 11:28 | EX.ED.DYSGE1 ---
HPI History of Present Illness Chief Complaint: Shortness of Breath Informant: patient and EMS Narrative Narrative: 62-year-old female states she was just admitted to the hospital with pneumonia. She states she was discharged home on a strong antibiotic. From what I can see she was discharged home on Augmentin. She states she has been doing well and when she woke this morning to use the bathroom around 0830 hrs. she noted she was significantly short of breath. Patient states she cannot seem to take a breath. She does wear home oxygen. She denies any fevers. She continues to have cough. She is unsure if she was on any steroids. The patient also notes a headache and would like something for that. I reviewed the patient's discharge summary and pulmonary consult note. It appears that the patient was being treated for gram-negative pneumonia that was complicated with RSV. PFSH PFS Medical History Bipolar 1 disorder COPD (chronic obstructive pulmonary disease) COPD (chronic obstructive pulmonary disease) Fibromyalgia Hypertension NSTEMI (non-ST elevated myocardial infarction) Rheumatoid arthritis Home Medications albuterol sulfate 90 mcg/actuation aerosol inhaler (ProAir HFA) 2 puff inhalation Q4H PRN PRN Sob &/Or Wheezing 07/26/14 [History Last Taken 06/06/17] nitroglycerin 0.4 mg sublingual tablet 0.4 mg sublingual PRN PRN CHEST PAIN 06/04/17 [History Last Taken Unknown] hyoscyamine sulfate 0.125 mg sublingual tablet 0.125 mg sublingual Q8H PRN dyspepsia 10/09/22 [History Last Taken Unknown] amitriptyline 100 mg tablet 100 mg PO QHS depresssion 10/10/22 [History Last Taken Unknown] hydroxyzine HCl 25 mg tablet 50 mg PO Q8H PRN anxiety 10/10/22 [History Last Taken Unknown] meloxicam 7.5 mg tablet 7.5 mg PO DAILY pain 10/10/22 [History Last Taken Unknown] pregabalin 200 mg capsule 200 mg PO Q8H 10/10/22 [History Last Taken Unknown] sumatriptan succinate 50 mg tablet 50 mg PO PRN PRN migraine headache 10/10/22 [History Last Taken Unknown] ondansetron 4 mg disintegrating tablet 4 mg PO Q8H PRN PRN Nausea #14 tabs 11/14/22 [Rx Last Taken Unknown] atorvastatin 40 mg tablet 40 mg PO QHS Cholesterol 05/11/23 [History Last Taken Unknown] buspirone 5 mg tablet 5 mg PO TID Anxiety 05/11/23 [History Last Taken Unknown] dexlansoprazole 60 mg capsule,biphase delayed release 60 mg PO DAILY GERD 05/11/23 [History Last Taken Unknown] escitalopram oxalate 20 mg tablet 20 mg PO DAILY depression 05/11/23 [History Last Taken Unknown] fluticasone propionate 50 mcg/actuation nasal spray,suspension 2 spray intranasal DAILY allergies 05/11/23 [History Last Taken Unknown] furosemide 40 mg tablet 40 mg PO DAILY water pill 05/11/23 [History Last Taken Unknown] hydroxyzine HCl 50 mg tablet 50 mg PO TID Anxiety 05/11/23 [History Last Taken Unknown] pregabalin 25 mg capsule 25 mg PO BID Nerve pain 05/11/23 [History Last Taken Unknown] tizanidine 4 mg tablet 4 mg PO QHS PRN PRN muscle spasm 05/11/23 [History Last Taken Unknown] acetaminophen 325 mg tablet 1,000 mg (3.0769 x 325 mg) PO Q8H PRN PRN fever/pain 1-10 #0 tabs 05/20/23 [Rx Last Taken Unknown] amoxicillin 875 mg-potassium clavulanate 125 mg tablet 1 tab PO BID #4 tabs 05/20/23 [Rx Last Taken Unknown] dextromethorphan-guaifenesin 30 mg-600 mg tablet extended [id number] hr (Mucinex DM) 2 tab PO BID #14 tabs 05/20/23 [Rx Last Taken Unknown] Allergy/AdvReac Type Severity Reaction Status Date / Time methotrexate Allergy Other Verified 05/11/23 11:21 nadolol Allergy Unknown Verified 05/11/23 11:21 prochlorperazine Allergy PT UNABLE Verified 05/11/23 11:21 TO RESPOND-NEEDS F/U baclofen AdvReac Other Verified 05/11/23 11:21 lorazepam [From Ativan] AdvReac Nausea Verified 11/14/22 10:49 propranolol AdvReac Other Verified 05/11/23 11:21 Social History Smoking Status: Former smoker ROS ROS ED Constitutional Constitutional ED: Denies chills, fever(s) or weight loss Eyes Eyes: Denies change in vision or diplopia ENT ENT ED: Denies ear pain, rhinorrhea or sore throat Cardiovascular Cardiovascular: Denies chest pain, orthopnea, palpitations or racing heartbeat Respiratory/Chest Respiratory/Chest: Reports cough, dyspnea and dyspnea on exertion; Denies orthopnea Gastrointestinal Gastrointestinal: Denies abdominal pain, diarrhea, nausea or vomiting Genitourinary Genitourinary ED: Denies dysuria, hematuria or urinary frequency Musculoskeletal Musculoskeletal: Denies arthralgias or myalgias Integumentary Denies abscess or rash Neurologic Neurologic: Reports headache(s); Denies weakness Psychiatric Psychiatric: Denies anxiety, depression, suicidal ideation or suicidal thoughts Endocrine Endocrinology: Denies polydipsia, polyphagia or polyuria Allergic/Immunologic Allergic/Immunologic ED: Denies mouth swelling, tongue swelling or urticaria EXAM Physical Exam Narrative Exam Narrative: Patient is presenting with moderate respiratory distress. Const Vital Signs: 06/04/23 11:14 06/04/23 11:18 06/04/23 11:25 Temperature 97.3 F L Temperature Source Temporal Pulse Rate 94 Respiratory Rate 23 H Respiratory Effort Short of Breath Labored Accessory Muscle Use Nasal Flaring Respiratory Depth Deep Respiratory Pattern Tachypnea Blood Pressure 161/119 H Blood Pressure Mean 133 Pulse Ox 93 Oxygen Delivery Method Nasal Cannula Nasal Cannula Bi-pap Oxygen Flow Rate (L/min) 3 3 Fraction of Inspired Oxygen (FIO2) 06/04/23 11:20 06/04/23 11:20 06/04/23 12:00 Temperature 97.6 F L Temperature Source Temporal Pulse Rate 91 88 83 Respiratory Rate 26 H 24 H 17 Respiratory Effort Respiratory Depth Respiratory Pattern Blood Pressure 174/100 H Blood Pressure Mean 124 Pulse Ox 94 93 Oxygen Delivery Method Bi-pap Oxygen Flow Rate (L/min) Fraction of Inspired Oxygen (FIO2) 35 06/04/23 12:30 06/04/23 13:00 06/04/23 13:08 Temperature 97.8 F Temperature Source Temporal Pulse Rate 84 83 Respiratory Rate 20 H 19 H Respiratory Effort Respiratory Depth Respiratory Pattern Blood Pressure 174/100 H Blood Pressure Mean 124 Pulse Ox 94 93 Oxygen Delivery Method Nasal Cannula Nasal Cannula Oxygen Flow Rate (L/min) 4 3 Fraction of Inspired Oxygen (FIO2) Positive well nourished and well developed General Appearance ED: well developed HEENT Reports normocephalic, head/scalp atraumatic and moist mucous membranes Eyes PERRL and EOMs intact bilaterally Neck no lymphadenopathy, supple and no JVD Resp Resp Narrative: Bilateral chest dated. Increased respiratory rate and accessory muscle use. Diminished breath sounds bilaterally with faint expiratory wheezes. Auscultation: wheezes expiratory wheezes and diminished lung sounds Cardio regular rate, regular rhythm and no murmurs GI normal to inspection, nondistended, normoactive bowel sounds and non-tender Palpation: soft Back/Spine no CVA tenderness and normal ROM Extremity normal to inspection General Extremety ED: Negative for edema General Extremity: Negative for edema Neuro oriented x3 and CN's II-XII intact bilaterally Sensorium / Orientation: alert Motor Exam: strength 5/5 throughout Psych mental status grossly normal Mood & Affect: Negative for depressed or tearful Skin no rashes or lesions noted and no wounds MDM MDM MDM Narrative Medical decision making narrative: My independent interpretation of the chest x-ray is progression of the infiltrates now more pronounced in the lingula of the left lung as well as the right lung tobias.. Pleural effusion continued noted right lung base. White count returns at 10.4 hemoglobin 11.8 platelet count of 212. Troponin is 17 glucose 113 creatinine 0.90. The patient EKG is a normal sinus rhythm at a rate of 84. The anterior T wave inversion is new. Difficult to define this at this time in light of a normal troponin and lack of chest pain. An ABG was obtained shows a pH of 7.4 pO2 49.5 pCO2 46.5. HCO3 28.7. COVID influenza and RSV testing is negative. Patient did not tolerate BiPAP. She was placed on high flow nasal cannula. She received Rocephin and azithromycin. I also administered breathing treatments and some Solu-Medrol. I do question as to whether or not mucous plugging is playing a role in this patient. Respiratory has been working with her. Plan will be admission into the hospital. History & Record Review Discussion w/independent historian: Patient Additional record(s) reviewed:: Prior inpatient record, Prior outpatient record, Prior ED visit and Prior labs Lab Data Attestation: I reviewed the patient's lab results. Labs: Laboratory Results - last 24 hr 06/04/23 11:27 WBC 10.4 RBC 4.02 L Hgb 11.8 L Hct 38.3 MCV 95.3 MCH 29.4 MCHC 30.8 L RDW Std Deviation 50.8 H RDW Coeff of Alejandra 14.7 H Plt Count 212 MPV 9.4 Immature Gran % (Auto) 0.700 Neut % (Auto) 77.2 H Lymph % (Auto) 15.1 L Humphreys % (Auto) 4.7 Eos % (Auto) 1.8 Baso % (Auto) 0.5 Absolute Neuts (auto) 8.0 H Absolute Lymphs (auto) 1.56 Nucleated RBC % 0 PT 12.8 INR 1.0 APTT 24.7 Sodium 141 Potassium 4.3 Chloride 107 Carbon Dioxide 31.0 Anion Gap 3 L BUN 14 Creatinine 0.90 Estim Creat Clear Calc 54.27 Est GFR (MDRD) Af Amer 81 Est GFR (MDRD) Non-Af 67 BUN/Creatinine Ratio 15.5 Glucose 113 H Calcium 8.5 Troponin I High Sens 17 ABG Data ABG results: ABG 06/04/23 13:07 Specimen Type ART Sample Site R Brach pH 7.40 Bicarbonate Actual 28.7 H Total CO2 30 Base Excess 4 H O2 Saturation 84 L O2 % 3.0 ABG pCO2 46.5 H ABG pO2 50 L Kei Test Positive O2 Delivery Device Cannula Vent Mode Not entered Radiography Diagnostic Testing: Clinical Impression(s) from Imaging Studies Chest X-Ray 06/04/23 12:00 IMPRESSION: Progressive bibasilar pulmonary infiltrates worse on the right side with a small right pleural effusion. Mild degree of vascular congestion and CHF. Electronically Signed: Bebeto Mariscal MD at 12:48 EDT , EKG Initial EKG: Attestation: I personally reviewed and interpreted this EKG as follows: Comments: Normal sinus rhythm ventricular rate of 84 bpm. There is inversion of T waves across the anterior leads that is new from EKG dated 11 May 2023. Prior EKG tracings: available for review Prior: Changed Discharge Plan Dx/Rx/DC Orders Clinical Impression: COPD (chronic obstructive pulmonary disease), HTN (hypertension), Pneumonia, Acute and chronic respiratory failure with hypoxia Disposition Disposition: Acute Care Hospital [facility]
[2023-06-04] MEDS: Ondansetron 4 MG/2 ML Vial IV (11:31)
[2023-06-04] MEDS: Ipratropium/Albuterol Sulfate 3 ML AMPUL.NEB INHALATION ×2 (11:31→19:28)
[2023-06-04] MEDS: Ketorolac 15 MG/ML Vial IV (11:31)
[2023-06-04] MEDS: 0.9% Normal Saline (500mL Bag) 500 ML 1000 ML IV (11:42)
[2023-06-04] MEDS: 0.9% Normal Saline (1000mL) 1,000 ML 150 ML IV (11:42)
[2023-06-04 11:55] LABS: Absolute Lymphocyte Count 1.56 X10^3/uL (0.83-4.51); Basophil# 0.05 X10^3/uL; Basophil% 0.5 % (0-1); Eosinophil# 0.19 X10^3/uL; Eosinophils% 1.8 % (0-5); Hematocrit 38.3 % (37-47); Hemoglobin 11.8 g/dL (12.0-15.0); Lymphocyte # 1.56 X10^3/ul (0.83-4.51); Lymphocyte % 15.1 % (19-41); Mean Corp Hgb Conc 30.8 g/dL (32-36); Mean Corpuscular Hgb 29.4 pg (27.0-32.0); Mean Corpuscular Volume 95.3 fL (81-99); Mean Platelet Vol. 9.4 fl (6.2-12.0); Monocyte# 0.49 X10^3/uL; Monocyte% 4.7 % (0-10); NRBC Flagged by Analyzer 0 % (0-5); Neutrophil # 7.99 X10^3/uL (2.7-7.7); Neutrophil % 77.2 % (47-70); Platelet Count 212 K/mm3 (150-450); RBC Distribution Width CV 14.7 % (11.6-14.6); RBC Distribution Width SD 50.8 fl (35.1-43.9); Red Blood Count 4.02 M/mm3 (4.2-5.4); White Blood Count 10.4 K/mm3 (4.4-11.0)
--- NOTE | 2023-06-04 12:00 | RAD_ITS ---
STUDY: X-RAY CHEST REASON FOR EXAM: Female, 62 years old. Respiratory distress TECHNIQUE: Single AP portable view of the chest. COMPARISON: Comparison is made with prior study May 20, 2023. FINDINGS: EKG electrodes are seen. Progressive bibasilar pulmonary infiltrates with small right pleural effusion. Mild degree of superimposed vascular congestion and CHF. Normal size heart. Normal mediastinum and madelyn. Normal visualized pulmonary arteries. There is atherosclerotic tortuosity of the aortic arch and descending thoracic aorta. There are diffuse degenerative changes of the visualized thoracic spine. Normal visualized ribs, clavicles, and shoulders. There is no demonstrated abnormality of the visualized soft tissue structures of the upper abdomen. RAD/Chest 1 View (Portable) IMPRESSION: Progressive bibasilar pulmonary infiltrates worse on the right side with a small right pleural effusion. Mild degree of vascular congestion and CHF. Electronically Signed: Bebeto Mariscal MD at 12:48 EDT ,
[2023-06-04 12:03] LABS: Anion Gap 3 (5-15); BUN 14 mg/dL (7-18); BUN/Creat Ratio 15.5 RATIO (10-20); Calcium,Total 8.5 mg/dL (8.5-10.1); Chloride 107 mmol/L (98-107); EST Glomerular Filtration Rate 67 mL/min (>60); Est Glom Filt Rate - Afr Amer 81 mL/min (>60); Estimated Creatinine Clearance 54.27 ml/min; Glucose 113 mg/dL (74-106); Potassium 4.3 mmol/L (3.5-5.1); Sodium Level 141 mmol/L (136-145); Troponin-I HS 17 pg/mL (3.0-54.0)
[2023-06-04 12:09] LABS: Prothrombin Time (Protime)PT. 12.8 SECONDS (11.7-14.9)
[2023-06-04 12:10] LABS: Partial Thromboplast Time 24.7 Seconds (24.1-36.2)
[2023-06-04] MEDS: Albuterol 2.5 MG/3 ML VIAL.NEB. INHALATION ×2 (13:07→15:57)
[2023-06-04 13:10] LABS: Allen Test Positive; Base Excess 4 mmol/L (-2 to +2); Bicarbonate 28.7 mmol/L (22-26); Blood Gas Specimen Type ART; Mode Not entered; O2 Delivery Device Cannula; PO2 50 mmHG (75-100); SITE R Brach; SO2 84 % (95-99); Total Carbon Dioxide 30 mmol/L; pCO2 46.5 mmHg (35-45)
[2023-06-04] MEDS: Ceftriaxone 1 GM/50 ML BAG IV (13:17)
--- NOTE | 2023-06-04 13:52 | NURSING ---
DR RAMONITA BAPTISTE
[2023-06-04] MEDS: Azithromycin 500 MG in Dextrose 5%-Water (250mL Bag) 250 ML 250 MG IV (13:54)
[2023-06-04] MEDS: MethylPREDNISolone 125 MG/2 ML Vial 60 MG IV (13:55)
--- NOTE | 2023-06-04 14:25 | PCM.HP.STD ---
HPI - General General Date of Admission: 06/04/23 Date of Service: 06/04/23 Chief Complaint: Sudden onset of shortness of breath since last night. HPI Narrative TOMI DIA, is a 62 F who was recently admitted from 05/11/2023 to 05/20/2023 for pneumonia and hypoxia came to ED with sudden onset of shortness of breath last night and when she woke up today. She said she gets short of breath on exertion but was otherwise doing good on 3 L of oxygen which she was discharged last time. As per EMS she was dyspneic/trouble breathing and was put on nonrebreather, capnography ETCO2 41 and brought to ED. EMS vitals for blood pressure high 196/126 heart rate 110/min. In ED, patient was hypoxic and tachypneic therefore put on BiPAP but not able to tolerate therefore on high flow oxygen. ABG was done. Twelve-lead EKG and chest x-ray was done and patient was given antibiotic after blood culture. Patient WAS started on ceftriaxone and azithromycin. [facility] Medical History Bipolar 1 disorder COPD (chronic obstructive pulmonary disease) COPD (chronic obstructive pulmonary disease) Fibromyalgia Hypertension NSTEMI (non-ST elevated myocardial infarction) Rheumatoid arthritis Home Medications albuterol sulfate 90 mcg/actuation aerosol inhaler (ProAir HFA) 2 puff inhalation Q4H PRN PRN Sob &/Or Wheezing 07/26/14 [History Last Taken 06/06/17] nitroglycerin 0.4 mg sublingual tablet 0.4 mg sublingual PRN PRN CHEST PAIN 06/04/17 [History Last Taken Unknown] amitriptyline 100 mg tablet 100 mg PO QHS depresssion 10/10/22 [History Last Taken Unknown] meloxicam 7.5 mg tablet 7.5 mg PO DAILY pain 10/10/22 [History Last Taken Unknown] sumatriptan succinate 50 mg tablet 50 mg PO PRN PRN migraine headache 10/10/22 [History Last Taken Unknown] ondansetron 4 mg disintegrating tablet 4 mg PO Q8H PRN PRN Nausea #14 tabs 11/14/22 [Rx Last Taken Unknown] atorvastatin 40 mg tablet 40 mg PO QHS Cholesterol 05/11/23 [History Last Taken Unknown] buspirone 5 mg tablet 5 mg PO TID Anxiety 05/11/23 [History Last Taken Unknown] dexlansoprazole 60 mg capsule,biphase delayed release 60 mg PO DAILY GERD 05/11/23 [History Last Taken Unknown] escitalopram oxalate 20 mg tablet 20 mg PO DAILY depression 05/11/23 [History Last Taken Unknown] fluticasone propionate 50 mcg/actuation nasal spray,suspension 2 spray intranasal DAILY allergies 05/11/23 [History Last Taken Unknown] furosemide 40 mg tablet 40 mg PO DAILY water pill 05/11/23 [History Last Taken Unknown] hydroxyzine HCl 50 mg tablet 50 mg PO TID PRN Anxiety 05/11/23 [History Last Taken Unknown] pregabalin 25 mg capsule 25 mg PO BID Nerve pain 05/11/23 [History Last Taken Unknown] tizanidine 4 mg tablet 4 mg PO QHS PRN PRN muscle spasm 05/11/23 [History Last Taken Unknown] acetaminophen 325 mg tablet 1,000 mg (3.0769 x 325 mg) PO Q8H PRN PRN fever/pain 1-10 #0 tabs 05/20/23 [Rx Last Taken Unknown] lisinopril 40 mg tablet 40 mg PO DAILY 06/04/23 [History Last Taken Unknown] Allergy/AdvReac Type Severity Reaction Status Date / Time methotrexate Allergy Other Verified 05/11/23 11:21 nadolol Allergy Unknown Verified 05/11/23 11:21 prochlorperazine Allergy PT UNABLE Verified 05/11/23 11:21 TO RESPOND-NEEDS F/U baclofen AdvReac Other Verified 05/11/23 11:21 lorazepam [From Ativan] AdvReac Nausea Verified 11/14/22 10:49 propranolol AdvReac Other Verified 05/11/23 11:21 Social History Smoking Status: Former smoker ROS ROS Narrative Constitutional: Reports fatigue and weakness. No fever. HEENT: Reports systems reviewed and no addt'l complaints, except as documented Respiratory/Chest: Former smoker. COPD. Hypoxia since last admission on 3 L of oxygen. CVS: Sudden onset of shortness of breath. No chest pain pressure or tightness. History of minor heart attack 7 years ago Gastrointestinal: Denies coffee ground emesis, hematemesis or vomiting Genitourinary: Denies burning urination or new urinary tract symptoms Musculoskeletal: Denies acute joint pain or limited range of motion. No acute injury Neurologic: Denies seizure-like symptoms. skin: No ulcer. No rash Endocrinology: Reports systems reviewed and no addt'l complaints, except as documented Hematologic/Lymphatic: Reports systems reviewed and no addt'l complaints, except as documented Rest 14 ROS are negative except as mentioned in HPI Vital Signs Vital Signs Vital Signs: 06/04/23 11:14 06/04/23 11:18 06/04/23 11:25 Temperature 97.3 F L Temperature Source Temporal Pulse Rate 94 Respiratory Rate 23 H Respiratory Effort Short of Breath Labored Accessory Muscle Use Nasal Flaring Respiratory Depth Deep Respiratory Pattern Tachypnea Blood Pressure 161/119 H Blood Pressure Mean 133 Pulse Ox 93 Oxygen Delivery Method Nasal Cannula Nasal Cannula Bi-pap Oxygen Flow Rate (L/min) 3 3 Fraction of Inspired Oxygen (FIO2) 06/04/23 11:20 06/04/23 11:20 06/04/23 12:00 Temperature 97.6 F L Temperature Source Temporal Pulse Rate 91 88 83 Respiratory Rate 26 H 24 H 17 Respiratory Effort Respiratory Depth Respiratory Pattern Blood Pressure 174/100 H Blood Pressure Mean 124 Pulse Ox 94 93 Oxygen Delivery Method Bi-pap Oxygen Flow Rate (L/min) Fraction of Inspired Oxygen (FIO2) 35 06/04/23 12:30 06/04/23 13:00 06/04/23 13:08 Temperature 97.8 F Temperature Source Temporal Pulse Rate 84 83 Respiratory Rate 20 H 19 H Respiratory Effort Respiratory Depth Respiratory Pattern Blood Pressure 174/100 H Blood Pressure Mean 124 Pulse Ox 94 93 Oxygen Delivery Method Nasal Cannula Nasal Cannula Oxygen Flow Rate (L/min) 4 3 Fraction of Inspired Oxygen (FIO2) 06/04/23 13:59 06/04/23 14:00 Temperature 97.4 F L 98 F Temperature Source Temporal Pulse Rate 82 89 Respiratory Rate 17 16 Respiratory Effort Respiratory Depth Respiratory Pattern Blood Pressure 170/106 H 176/117 H Blood Pressure Mean 127 136 Pulse Ox 94 93 Oxygen Delivery Method Nasal Cannula Oxygen Flow Rate (L/min) 4 Fraction of Inspired Oxygen (FIO2) Weight Weight: 134 lb 4.184 oz Body Mass Index (BMI) 25.3 Physical Exam Narrative General: Alert, Oriented x3, Cooperative HEENT: Atraumatic, PERRLA, EOMI, Normocephalic Oral: No Gingival or Mucosal Lesions/ Ulcerations Neck: Supple, No JVD, Negative Carotid Bruits Chest wall/Lungs: Air entry diminished in bilateral lung bases. No crepitation/rhonchi Cardiovascular: Regular rate, Regular Rhythm, Normal S1, Normal S2, systolic murmur present on LLSB Abdomen: Bowel Sounds Present, Soft, Non Tender, Non-Distended : No dysuria. No renal angle tenderness. No suprapubic tenderness. Extremities: No edema, Capillary Refill Less than 3 Seconds Skin: No rashes, No breakdown Musculoskeletal: No Tenderness to Palpation of Joints or Extremities. ROM restricted. 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 Neurological: Cranial nerves II-XII grossly intact, DTR 2+/4. No acute focal neurological deficit. Psych/Mental Status: Flat affect. Sad, easily crying. Results Lab / Micro Data 06/04/23 11:27 06/04/23 11:27 Labs: Laboratory Results - last 24 hr 06/04/23 11:27: WBC 10.4, RBC 4.02 L, Hgb 11.8 L, Hct 38.3, MCV 95.3, MCH 29.4, MCHC 30.8 L, RDW Std Deviation 50.8 H, RDW Coeff of Alejandra 14.7 H, Plt Count 212, MPV 9.4, Immature Gran % (Auto) 0.700, Neut % (Auto) 77.2 H, Lymph % (Auto) 15.1 L, [place] % (Auto) 4.7, Eos % (Auto) 1.8, Baso % (Auto) 0.5, Absolute Neuts (auto) 8.0 H, Absolute Lymphs (auto) 1.56, Nucleated RBC % 0, PT 12.8, INR 1.0, APTT 24.7, Sodium 141, Potassium 4.3, Chloride 107, Carbon Dioxide 31.0, Anion Gap 3 L, BUN 14, Creatinine 0.90, Estim Creat Clear Calc 54.27, Est GFR (MDRD) Af Amer 81, Est GFR (MDRD) Non-Af 67, BUN/Creatinine Ratio 15.5, Glucose 113 H, Calcium 8.5, Troponin I High Sens 17 Micro: Microbiology 06/04/23 11:30 Mucosa - Nose SARS-CoV-2, Influenza & RSV (PCR) - Final ABG Data ABG results: ABG 06/04/23 13:07 Specimen Type ART Sample Site R Brach pH 7.40 Bicarbonate Actual 28.7 H Total CO2 30 Base Excess 4 H O2 Saturation 84 L O2 % 3.0 ABG pCO2 46.5 H ABG pO2 50 L Kei Test Positive O2 Delivery Device Cannula Vent Mode Not entered Imaging Radiology Impression Chest X-Ray 06/04/23 12:00 IMPRESSION: Progressive bibasilar pulmonary infiltrates worse on the right side with a small right pleural effusion. Mild degree of vascular congestion and CHF. Electronically Signed: Bebeto Mariscal MD at 12:48 EDT , Assessment & Plan Assessment/Plan (1) Acute and chronic respiratory failure with hypoxia: (2) Pneumonia: PLAN: Plan This 62-year-old female admitted for sudden onset of shortness of breath when she woke up in the morning today. 1. Acute on chronic hypoxic respiratory failure: Patient is being admitted in PCU. ABG done in ED shows 7.4/46.5/50/30 on 3 L of oxygen. Patient was put on high flow oxygen. Chest x-ray initially reviewed and shows bibasilar pulmonary infiltrate with worse on right side with small right pleural effusion but seems retrocardiac/lingular infiltrate and mild vascular congestion. 2. Bibasilar pneumonia: Patient was treated with antibiotic during previous visit. MRSA nasal screen was negative and ID was consulted. Pneumonia workup ordered. Lactic acid 2.5 but patient not having any hypotension probably from hypoxia or CHF/hypoperfusion. 3. Clinical suspicion of heart failure exacerbation: Chest x-ray shows vascular congestion/CHF. BNP elevated.Twelve-lead EKG shows T inversions in in V1 to V5 with normal sinus rhythm 84 beats per 100. DN versus not present last time. QTc 422 ms. First troponin normal. Lasix 40 mg IV 1 dose ordered. Serial troponins ordered. Last echo in June 2017 as mentioned below. Continue Lasix 40 mg IV every 12 hourly as tolerated by hemodynamics plans for Interpretation Summary Normal LV size. Left ventricular systolic function is normal. The estimated ejection fraction is 55 %. The left atrium is moderately enlarged. Moderate (2+) eccentric mitral valve insufficiency. Pulmonary artery systolic pressure is 39 mmHg. Compared to prior study, there is no significant change. 4. Bipolar disorder, anxiety and multiple medications.: Continue Lexapro 05/14: The patient looked very anxious and restless. Resume home medication buspirone 5 mg, 3 times daily. On Hydroxyzine 25 mg tid prn, lyrixa 25 mg tid for neuropathic pain in hands 5. Fibromyalgia: Continue home pain medications including Zanaflex and hydrocodone: 6. Hypertension: Blood pressure is very high. Hold lisinopril and Lasix IV. Monitor BP and adjust the medications accordingly. 7. COPD: Patient has history of smoking 18 to 25 years of age, 1 pack/day. Patient already quit. Patient is being managed on scheduled bronchodilator, maintenance inhaler, Mucinex, incentive spirometry and Pep. 8. DVT prophylaxis: On enoxaparin 40 mg daily. Discontinue if platelet count drops less than 50,000 or hemoglobin less than 8 g% Living will/advanced directive/end of life care: Patient does have living will or advanced directive. After discussion of benefits/risks procedures involved with full code, DNR CC arrest and DNR CC, the patient opted for DNR CC arrest with no intubation. Patient doesn't want artificial life support including intubation, tube feed, ventilator and/chest compression, central venous catheter, vasopressor and DC shock if needed Total time spent in [id number] encounter in discussion of advanced directive 17 minutes. Microbiology Past 72 Hours 06/04/23 11:30 Mucosa - Nose SARS-CoV-2, Influenza & RSV (PCR) - Final Laboratory Results 06/04/23 11:27: WBC 10.4, RBC 4.02 L, Hgb 11.8 L, Hct 38.3, MCV 95.3, MCH 29.4, MCHC 30.8 L, RDW Std Deviation 50.8 H, RDW Coeff of Alejandra 14.7 H, Plt Count 212, MPV 9.4, Immature Gran % (Auto) 0.700, Neut % (Auto) 77.2 H, Lymph % (Auto) 15.1 L, [place] % (Auto) 4.7, Eos % (Auto) 1.8, Baso % (Auto) 0.5, Absolute Neuts (auto) 8.0 H, Absolute Lymphs (auto) 1.56, Nucleated RBC % 0, PT 12.8, INR 1.0, APTT 24.7, Sodium 141, Potassium 4.3, Chloride 107, Carbon Dioxide 31.0, Anion Gap 3 L, BUN 14, Creatinine 0.90, Estim Creat Clear Calc 54.27, Est GFR (MDRD) Af Amer 81, Est GFR (MDRD) Non-Af 67, BUN/Creatinine Ratio 15.5, Glucose 113 H, Calcium 8.5, Troponin I High Sens 17. B-Natriuretic Peptide 597.5 H 06/04/23 13:07: Specimen Type ART, Sample Site R Brach, pH 7.40, Bicarbonate Actual 28.7 H, Total CO2 30, Base Excess 4 H, O2 Saturation 84 L, O2 % 3.0, ABG pCO2 46.5 H, ABG pO2 50 L, Kei Test Positive, O2 Delivery Device Cannula, Vent Mode Not entered 06/04/23 14:50: Lactic Acid 2.5 H* Clinical Impression(s) from Imaging Studies Chest X-Ray 06/04/23 12:00 IMPRESSION: Progressive bibasilar pulmonary infiltrates worse on the right side with a small right pleural effusion. Mild degree of vascular congestion and CHF. Electronically Signed: Bebeto Mariscal MD at 12:48 EDT , Charges/Coding Visit Charges Inpatient E&M: 78346 Init Hosp L3 Procedures Hospitalists Procedures: 74345 Advncd Care Plan 30 Min
[2023-06-04] MEDS: Furosemide 40 MG/4 ML Vial IV ×2 (15:07→17:43)
--- NOTE | 2023-06-04 15:15 | NURSING ---
PCU RAMONITA PNEUMONIA
[2023-06-04 15:19] LABS: BNP,B-Type NATRIURETIC PEPTIDE 597.5 pg/mL (0-100)
[2023-06-04 15:46] LABS: Lactic Acid 2.5 mmol/L (0.4-1.9)
--- NOTE | 2023-06-04 15:55 | ED.RN ---
Pt became very anxious with Purewick, states I miriam muroe, pt encouraged to use Purewick as currently unable to safely get out of bed due to SpO2 levels dropping with any exertion. Pt insistent she can't use Purewick, demands bedpan. Pt SpO2 dropped to 76% on 4-6L NC while attempting to place bedpan. SpO2 only recovered to 83-84% on 6L NC after using bedpan, RT called to room, will give another breathing tx, bipap reapplied.
--- NOTE | 2023-06-04 16:17 | ED.RN ---
This RN called to room by RT. pt hysterical screaming I can't pee. Abd abd appears distended, pt in obvious distress. MD notified, amado catheter placed with immediate relief and approx 1200 ml of urine drainage.
[2023-06-04] MEDS: Acetaminophen 325 MG Tablet 650 MG PO (17:41)
[2023-06-04] MEDS: Piperacil/Tazobactam 3.375 GM in 0.9% Normal Saline (50mL MB+) 50 ML IV ×2 (17:42→22:00)
[2023-06-04] MEDS: Enoxaparin 40 MG/0.4 ML Syringe SC (17:42)
[2023-06-04] MEDS: Pantoprazole Sodium 40 MG Tablet PO (17:43)
[2023-06-04] MEDS: guaiFENesin 1,200 MG Tablet 1200 MG PO ×2 (17:43→21:43)
[2023-06-04] MEDS: Pregabalin 25 MG Capsule PO (17:52)
[2023-06-04 18:06] LABS: Magnesium 1.7 mg/dL (1.6-2.6); Troponin-I HS 22 pg/mL (3.0-54.0)
[2023-06-04 18:59] LABS: Reflex Lactate? Y
[2023-06-04 19:08] LABS: Troponin-I HS 22 pg/mL (3.0-54.0)
[2023-06-04] MEDS: Budesonide Respules 0.5 MG/2 ML AMPUL.NEB. INHALATION (19:28)
[2023-06-04] MEDS: Ketorolac 30 MG/ML Syringe 15 MG IV (21:41)
[2023-06-04] MEDS: 0.9% Saline Lock 10 ML Syringe IV (21:42)
[2023-06-04] MEDS: Amitriptyline 100 MG Tablet PO (21:43)
[2023-06-04] MEDS: busPIRone 5 MG Tablet PO (21:43)
[2023-06-04] MEDS: Atorvastatin Calcium 40 MG Tablet PO (21:44)
[2023-06-04] MEDS: hydrOXYzine PAM 25 MG Capsule PO (21:58)
[2023-06-05] VITALS (11 sets, daily range): BP systolic 106–148; BP diastolic 74–92; PULSE 76–111; RESP 16–18; TEMP 35.8–36.9; O2SAT 89–98
--- NOTE | 2023-06-05 03:13 | CPS ---
bipap not setup. Is rescue only, not set up in room.
[2023-06-05] MEDS: busPIRone 5 MG Tablet PO ×3 (05:56→21:33)
[2023-06-05] MEDS: Piperacil/Tazobactam 3.375 GM in 0.9% Normal Saline (50mL MB+) 50 ML IV ×3 (05:58→21:53)
[2023-06-05 06:58] LABS: Absolute Lymphocyte Count 1.54 X10^3/uL (0.83-4.51); Absolute Neutrophil Count 7.1 X10^3/uL (2.0-7.7); Basophil# 0.02 X10^3/uL; Basophil% 0.2 % (0-1); Eosinophil# 0.05 X10^3/uL; Eosinophils% 0.5 % (0-5); Hematocrit 33.2 % (37-47); Hemoglobin 10.7 g/dL (12.0-15.0); Lymphocyte # 1.54 X10^3/ul (0.83-4.51); Lymphocyte % 16.1 % (19-41); Mean Corp Hgb Conc 32.2 g/dL (32-36); Mean Corpuscular Hgb 30.2 pg (27.0-32.0); Mean Corpuscular Volume 93.8 fL (81-99); Mean Platelet Vol. 9.6 fl (6.2-12.0); Monocyte% 8.4 % (0-10); NRBC Flagged by Analyzer 0 % (0-5); Neutrophil # 7.12 X10^3/uL (2.7-7.7); Neutrophil % 74.4 % (47-70); Platelet Count 226 K/mm3 (150-450); RBC Distribution Width SD 51.6 fl (35.1-43.9); Red Blood Count 3.54 M/mm3 (4.2-5.4); White Blood Count 9.6 K/mm3 (4.4-11.0)
[2023-06-05] MEDS: Budesonide Respules 0.5 MG/2 ML AMPUL.NEB. INHALATION ×2 (07:08→19:04)
[2023-06-05] MEDS: Ipratropium/Albuterol Sulfate 3 ML AMPUL.NEB INHALATION ×3 (07:08→19:04)
[2023-06-05 07:35] LABS: Anion Gap 6 (5-15); BUN 23 mg/dL (7-18); Calcium,Total 8.6 mg/dL (8.5-10.1); Chloride 102 mmol/L (98-107); EST Glomerular Filtration Rate 60 mL/min (>60); Est Glom Filt Rate - Afr Amer 72 mL/min (>60); Estimated Creatinine Clearance 48.03 ml/min; Glucose 95 mg/dL (74-106); Potassium 4.2 mmol/L (3.5-5.1); Sodium Level 139 mmol/L (136-145)
[2023-06-05] MEDS: Meloxicam 7.5 MG Tablet PO (08:02)
[2023-06-05] MEDS: Acetaminophen 325 MG Tablet 650 MG PO ×2 (08:02→21:33)
[2023-06-05] MEDS: Pregabalin 25 MG Capsule PO ×2 (08:02→17:22)
--- NOTE | 2023-06-05 08:53 | PN.HOSP_ITS ---
Reason for Visit Reason for Visit: Diagnoses Pneumonia, unspecified organism (06/04/23) Acute and chronic respiratory failure with hypoxia (06/04/23) Subjective Subjective Patient is a 62-year-old lady with history of chronic hypoxic respiratory f ailure admitted with progressive shortness of breath. Objective Data Objective Data Vital Signs: Vital Signs Temp Pulse Resp BP Pulse Ox O2 Del Method O2 Flow Rate 96.4 F L 83 17 116/74 93 Nasal Cannula 4 06/05/23 03:30 06/05/23 07:08 06/05/23 07:08 06/05/23 03:30 06/05/23 08:08 06/05/23 08:10 06/05/23 08:10 FiO2 40 06/04/23 16:00 Oxygen Flow Rate (L/min) 4 Oxygen Delivery Method Nasal Cannula Weight: 58.7 kg Body Mass Index (BMI) 24.4 Intake & Output: Intake and Output for Last 24 Hours 06/03/23 06/04/23 06/05/23 23:59 23:59 23:59 Intake Total 2322.5 / 2322.5 270 / 270 Output Total 300 / 300 450 / 450 Balance 2022.5 / 2022.5 -180 / -180 Lab / Micro Data 06/05/23 06:00 06/05/23 06:00 Labs: Laboratory Results - last 24 hr 06/04/23 11:27: WBC 10.4, RBC 4.02 L, Hgb 11.8 L, Hct 38.3, MCV 95.3, MCH 29.4, MCHC 30.8 L, RDW Std Deviation 50.8 H, RDW Coeff of Alejandra 14.7 H, Plt Count 212, MPV 9.4, Immature Gran % (Auto) 0.700, Neut % (Auto) 77.2 H, Lymph % (Auto) 15.1 L, [place] % (Auto) 4.7, Eos % (Auto) 1.8, Baso % (Auto) 0.5, Absolute Neuts (auto) 8.0 H, Absolute Lymphs (auto) 1.56, Nucleated RBC % 0, PT 12.8, INR 1.0, APTT 24.7, Sodium 141, Potassium 4.3, Chloride 107, Carbon Dioxide 31.0, Anion Gap 3 L, BUN 14, Creatinine 0.90, Estim Creat Clear Calc 54.27, Est GFR (MDRD) Af Amer 81, Est GFR (MDRD) Non-Af 67, BUN/Creatinine Ratio 15.5, Glucose 113 H, Calcium 8.5, Troponin I High Sens 17, B-Natriuretic Peptide 597.5 H 06/04/23 14:50: Lactic Acid 2.5 H* 06/04/23 17:35: Magnesium 1.7, Troponin I High Sens 22 06/04/23 18:40: Troponin I High Sens 22 06/04/23 19:10: Lactic Acid 6.0 H* 06/05/23 06:00: WBC 9.6, RBC 3.54 L, Hgb 10.7 L, Hct 33.2 L, MCV 93.8, MCH 30.2, MCHC 32.2, RDW Std Deviation 51.6 H, RDW Coeff of Alejandra 15.0 H, Plt Count 226, MPV 9.6, Immature Gran % (Auto) 0.400, Neut % (Auto) 74.4 H, Lymph % (Auto) 16.1 L, [place] % (Auto) 8.4, Eos % (Auto) 0.5, Baso % (Auto) 0.2, Absolute Neuts (auto) 7.1, Absolute Lymphs (auto) 1.54, Nucleated RBC % 0, Sodium 139, Potassium 4.2, Chloride 102, Carbon Dioxide 31.0, Anion Gap 6, BUN 23 H, Creatinine 1.00, Estim Creat Clear Calc 48.03, Est GFR (MDRD) Af Amer 72, Est GFR (MDRD) Non-Af 60, BU N/Creatinine Ratio 23.0 H, Glucose 95, Calcium 8.6 Micro: Microbiology 06/04/23 20:20 Urine Catheter - Byrne Legionella Antigen - Final 06/04/23 20:20 Urine Catheter - Byrne Streptococcus pneumoniae Antigen (M - Final 06/04/23 11:30 Mucosa - Nose SARS-CoV-2, Influenza & RSV (PCR) - Final ABG Data ABG results: ABG 06/04/23 13:07 Specimen Type ART Sample Site R Brach pH 7.40 Bicarbonate Actual 28.7 H Total CO2 30 Base Excess 4 H O2 Saturation 84 L O2 % 3.0 ABG pCO2 46.5 H ABG pO2 50 L Kei Test Positive O2 Delivery Device Cannula Vent Mode Not entered Radiography Diagnostic Testing: Radiology Impression Chest X-Ray 06/04/23 12:00 IMPRESSION: Progressive bibasilar pulmonary infiltrates worse on the right side with a small right pleural effusion. Mild degree of vascular congestion and CHF. Electronically Signed: Bebeto Mariscal MD at 12:48 EDT , Physical Exam Narrative GENERAL: cooperative HEENT: Atraumatic; normocephalic EYES; Anicteric, Normal Conjunctiva NECK; supple, normal thyroid, RESPIRATORY: Diminished to auscultation CARDIOVASCULAR: Regular S1 S2, GI: soft, normoactive bowel sounds, : No Renal angle tenderness; EXTREMITIES: No edema, no clubbing, MUSCULOSKELETAL: no muscle wasting NEURO: Awake; no lateralizing signs. SKIN: No Rash PSYCH; Flat affect Assessment & Plan Assessment/Plan (1) Acute and chronic respiratory failure with hypoxia: (2) Pneumonia: PLAN: Plan Patient is a 62-year-old lady with history of chronic hypoxic respiratory failure admitted with progressive shortness of breath. 1. Acute hypoxia ? Superimposed on chronic hypoxic respite failure due to combination of pneu monia and congestive heart failure. Admitted to a monitored bed for subsequent management 2. Acute on chronic congestive heart failure with preserved ejection fraction ? Echo from 2018 demonstrated EF of 55%. Patient admitted to monitored bed managed with strict input and output, daily weight, low-sodium diet fluid restriction as well as IV Lasix repeat echo ordered for reevaluation of her eje ction fraction 3. Bibasilar pneumonia ? Patient is on broad antibiotic therapy with Zosyn in addition to supplemental oxygen as well as aerosol treatments as needed 4. Lactic acidosis ? Attributed to increased work of breathing 5. Bipolar disorder ? Patient is on multiple psychotropic medications with continued 6. Tardive dyskinesia ? Probably side effect of patient psychotropic medications 7. Chronic hypoxic respiratory failure Secondary to COPD patient is on baseline oxygen 3 L flow per minute 8. Hypertension - Blood pressure controlled, home medications continued with dose adjustment as needed 9. Fibromyalgia?continue home meds 10. Dyslipidemia -Patient is on statin therapy, continued at home dose 11. Tobacco dependence - Counseled on cessation, offered nicotine patch for tobacco cravings Time spent in the patient's overall evaluation,decision-making process, review of diagnostic data, adjustment of management, discussion with other providers, nursing nursing and ancillary staff involved in patient's care documentation, 52 Minutes. Charges/Coding Visit Charges Inpatient E&M: 82693 Subs Hosp L3
--- NOTE | 2023-06-05 09:03 | ECHOD_ITS ---
Reason For Study: DYSPNEA Procedure This was a 2D Doppler, Color Flow transthoracic echocardiogram. The study was technically difficult. Exam performed portable in patient room. Left Ventricle Normal LV size. Left ventricular systolic function is normal. The estimated ejection fraction is 65 %. No regional wall motion abnormalities noted. Right Ventricle Normal RV size. Normal systolic function. Atria Normal left atrium. Normal right atrium. Mitral Valve Normal mitral valve. Tricuspid Valve Normal tricuspid valve. Mild (1+) tricuspid valve insufficiency. Pulmonary artery systolic pressure is 35 mmHg. Aortic Valve Normal aortic valve. Pulmonic Valve Normal pulmonic valve. Great Vessels Normal aortic root. The pulmonary artery is normal size. Inferior vena cava collapse with respiration. Pericardium/Pleural No pericardial effusion. MMode/2D Measurements & Calculations LVIDd: 3.2 cm IVSd: 1.0 cm LVOT diam: 1.8 cm LVIDs: 2.0 cm LVPWd: 1.0 cm LVOT area: 2.5 cm2 RVDd: 3.2 cm FS: 36.6 % Ao root diam: 3.0 cm LAV(MOD-bp): 65.8 ml LVAd ap4: 20.6 cm2 LAV(MOD-bp) Indexed: 42.0 ml/m2 LVLd ap4: 6.4 cm LAV(MOD-sp2): 59.2 ml EDV(MOD-sp4): 52.8 ml LAV(MOD-sp4): 71.4 ml EDV(sp4-el): 56.6 ml LVAs ap4: 10.4 cm2 LVLs ap4: 5.3 cm ESV(MOD-sp4): 16.9 ml ESV(sp4-el): 17.1 ml EF(MOD-sp4): 68.0 % EF(sp4-el): 69.7 % LVAd ap2: 22.0 cm2 SV(MOD-sp4): 35.9 ml SV(MOD-sp2): 37.1 ml LVLd ap2: 6.6 cm EDV(MOD-sp2): 59.2 ml EDV(sp2-el): 61.9 ml LVAs ap2: 12.4 cm2 LVLs ap2: 5.9 cm ESV(MOD-sp2): 22.1 ml ESV(sp2-el): 22.1 ml EF(MOD-sp2): 62.6 % SV(sp4-el): 39.5 ml LA dimension(2D): 4.3 cm LA A4 area: 24.0 cm2 RA A4 area: 8.2 cm2 TAPSE: 1.9 cm Time Measurements MV dec time: 0.22 sec Doppler Measurements & Calculations MV E max jorge luis: 107.5 cm/sec Lat Peak E' Jorge Luis: 7.7 cm/sec Med Peak E' Jorge Luis: 7.7 cm/sec MV A max jorge luis: 99.0 cm/sec E/E' lat: 14.0 E/E' med: 14.0 MV E/A: 1.1 Ao V2 max: 193.5 cm/sec LV V1 max: 169.1 cm/sec MV dec slope: 481.1 cm/sec2 Ao max P.0 mmHg LV V1 max P.4 mmHg Ao V2 mean: 131.8 cm/sec LV V1 mean P.6 mmHg Ao mean P.0 mmHg LV V1 mean: 121.8 cm/sec Ao V2 VTI: 32.4 cm LV V1 VTI: 28.2 cm AV (velocity ratio): 0.87 ONEL(I,D): 2.2 cm2 ONEL(V,D): 2.2 cm2 SV(LVOT): 71.4 ml PA V2 max: 101.8 cm/sec TR max jorge luis: 276.3 cm/sec PA max PG (full): 1.1 mmHg TR max P.5 mmHg ECHO/Echo Complete Interpretation Summary Normal LV size. Left ventricular systolic function is normal. The estimated ejection fraction is 65 %. Normal left atrium. Pulmonary artery systolic pressure is 35 mmHg. Ordering Physician: Guevara Bates Performed By: Rosangela Gray RDCS
[2023-06-05] MEDS: Furosemide 40 MG/4 ML Vial IV ×2 (09:20→17:22)
[2023-06-05] MEDS: Fluticasone 0.05% 1 SPRAY NASAL.SRY 2 SPRAY NASAL (09:20)
[2023-06-05] MEDS: 0.9% Saline Lock 10 ML Syringe IV ×2 (09:21→17:22)
[2023-06-05] MEDS: Escitalopram Oxalate 20 MG Tablet PO (09:22)
[2023-06-05] MEDS: Enoxaparin 40 MG/0.4 ML Syringe SC (09:22)
[2023-06-05] MEDS: Pantoprazole Sodium 40 MG Tablet PO (09:22)
[2023-06-05] MEDS: guaiFENesin 1,200 MG Tablet 1200 MG PO ×2 (09:22→21:34)
[2023-06-05] MEDS: Lisinopril 40 MG Tablet PO (09:23)
--- NOTE | 2023-06-05 09:30 | CASEMGMT ---
RICARDO SYED Chart review: Patient was admitted 05/10-05/20/23 for pneumonia and RSV. See RICARDO SYED assessment from 05/13/23. [facility] was not able to be setup due after several referrals declined and patient was discharged to home with home oxygen at 3lpm with exertion and walker with support from significant other. Patient returned on 06/04/23 for increased SOB and was admitted for acute on chronic respiratory failure, pneumonia and CHF. Patient required 4lpm oxygen and received IV Zosyn and Lasix. RICARDO SYED in to discuss readmission and needs at discharge. Patient states she was doing well at home but thinks she did too much. Patient did not go to PCP appt schedule on 06/03/23 as she did not want to ask family for transportation and is rescheduled for 06/10/23. Patient states that neighbor had brought dinner for Easter that included ham and she ate quite a bit. Patient states she was taking medications as prescribed and wearing oxygen at home. RICARDO SYED discussed the importance of attending follow-up appts and follow dietary recommendations. RICARDO SYED discussed CCN program and patient agreeable to referral. Will monitor for increase in home oxygen. Patient denied further needs or concerns at discharge. CM will continue to follow this patient and plan for a safe discharge.
[2023-06-05] MEDS: hydrOXYzine PAM 25 MG Capsule PO ×2 (13:50→21:33)
[2023-06-05] MEDS: Calcium Carbonate 500 MG Tablet PO (18:30)
[2023-06-05] MEDS: Amitriptyline 100 MG Tablet PO (21:33)
[2023-06-05] MEDS: Atorvastatin Calcium 40 MG Tablet PO (21:33)
--- NOTE | 2023-06-05 22:02 | PCM.HOSP.N ---
Hospitalist Note Patient requesting transition back to Full Code status. Will change her status back to full code per patient request.
[2023-06-06] VITALS (8 sets, daily range): BP systolic 117–140; BP diastolic 85–95; PULSE 78–90; RESP 16–18; TEMP 36.7–36.8; O2SAT 83–97
--- NOTE | 2023-06-06 00:24 | CPS ---
Patient refused PAP therapy, not in room
[2023-06-06] MEDS: Piperacil/Tazobactam 3.375 GM in 0.9% Normal Saline (50mL MB+) 50 ML IV (05:21)
[2023-06-06] MEDS: busPIRone 5 MG Tablet PO ×2 (06:21→13:04)
[2023-06-06] MEDS: hydrOXYzine PAM 25 MG Capsule PO ×2 (06:25→13:04)
[2023-06-06] MEDS: Budesonide Respules 0.5 MG/2 ML AMPUL.NEB. INHALATION (07:17)
[2023-06-06] MEDS: Ipratropium/Albuterol Sulfate 3 ML AMPUL.NEB INHALATION ×2 (07:17→10:43)
[2023-06-06 08:08] LABS: Absolute Lymphocyte Count 1.56 X10^3/uL (0.83-4.51); Absolute Neutrophil Count 4.8 X10^3/uL (2.0-7.7); Basophil# 0.05 X10^3/uL; Basophil% 0.7 % (0-1); Eosinophil# 0.51 X10^3/uL; Eosinophils% 6.9 % (0-5); Hemoglobin 10.9 g/dL (12.0-15.0); Lymphocyte # 1.56 X10^3/ul (0.83-4.51); Mean Corp Hgb Conc 32.1 g/dL (32-36); Mean Corpuscular Hgb 30.1 pg (27.0-32.0); Mean Corpuscular Volume 93.9 fL (81-99); Mean Platelet Vol. 9.4 fl (6.2-12.0); Monocyte# 0.54 X10^3/uL; Monocyte% 7.3 % (0-10); NRBC Flagged by Analyzer 0 % (0-5); Neutrophil # 4.75 X10^3/uL (2.7-7.7); Neutrophil % 63.7 % (47-70); Platelet Count 208 K/mm3 (150-450); RBC Distribution Width CV 15.3 % (11.6-14.6); RBC Distribution Width SD 52.8 fl (35.1-43.9); Red Blood Count 3.62 M/mm3 (4.2-5.4); White Blood Count 7.4 K/mm3 (4.4-11.0)
[2023-06-06 08:29] LABS: Anion Gap 7 (5-15); BUN 23 mg/dL (7-18); BUN/Creat Ratio 20.2 RATIO (10-20); Calcium,Total 8.3 mg/dL (8.5-10.1); Chloride 103 mmol/L (98-107); Creatinine, Serum 1.14 mg/dL (0.55-1.02); EST Glomerular Filtration Rate 51 mL/min (>60); Est Glom Filt Rate - Afr Amer 62 mL/min (>60); Estimated Creatinine Clearance 42.13 ml/min; Glucose 180 mg/dL (74-106); Magnesium 1.8 mg/dL (1.6-2.6); Phosphorus 3.8 mg/dL (2.5-4.9); Potassium 3.4 mmol/L (3.5-5.1); Sodium Level 140 mmol/L (136-145)
[2023-06-06] MEDS: Lisinopril 40 MG Tablet PO (08:34)
[2023-06-06] MEDS: Escitalopram Oxalate 20 MG Tablet PO (08:34)
[2023-06-06] MEDS: Fluticasone 0.05% 1 SPRAY NASAL.SRY 2 SPRAY NASAL (08:34)
[2023-06-06] MEDS: Meloxicam 7.5 MG Tablet PO (08:34)
[2023-06-06] MEDS: Pantoprazole Sodium 40 MG Tablet PO (08:34)
[2023-06-06] MEDS: Pregabalin 25 MG Capsule PO (08:34)
[2023-06-06] MEDS: guaiFENesin 1,200 MG Tablet 1200 MG PO (08:35)
[2023-06-06] MEDS: Enoxaparin 40 MG/0.4 ML Syringe SC (08:36)
[2023-06-06] MEDS: 0.9% Saline Lock 10 ML Syringe IV (08:36)
[2023-06-06] MEDS: Furosemide 40 MG/4 ML Vial IV (08:36)
--- NOTE | 2023-06-06 10:43 | PCM.DC.SUM ---
Providers Date of Admission: 06/04/23 Date of Discharge: 06/06/23 Primary Care Physician: DALI FRAGOSO, PC SUPPORT SPECIALIST-C Reason For Visit: ACUTE ON CHR RESP FAILURE, PNEUMONIA Diagnosis Discharge Diagnosis (1) Acute and chronic respiratory failure with hypoxia: Status: Chronic Code(s): J96.21 - Acute and chronic respiratory failure with hypoxia (2) Pneumonia: Status: Acute Code(s): J18.9 - Pneumonia, unspecified organism Plan Patient is a 62-year-old lady with history of chronic hypoxic respiratory failure admitted with progressive shortness of breath. 1. Acute hypoxia ? Superimposed on chronic hypoxic respite failure due to combination of pneumonia and congestive heart failure. Admitted to a monitored bed for subsequent management 2. Acute on chronic congestive heart failure with preserved ejection fraction ? Echo from 2018 demonstrated EF of 55%. Patient admitted to monitored bed managed with strict input and output, daily weight, low-sodium diet fluid restriction as well as IV Lasix repeat echo ordered for reevaluation of her ejection fraction 3. Bibasilar pneumonia ? Patient is on broad antibiotic therapy with Zosyn in addition to supplemental oxygen as well as aerosol treatments as needed 4. Lactic acidosis ? Attributed to increased work of breathing 5. Bipolar disorder ? Patient is on multiple psychotropic medications with continued 6. Tardive dyskinesia ? Probably side effect of patient psychotropic medications 7. Chronic hypoxic respiratory failure Secondary to COPD patient is on baseline oxygen 3 L flow per minute 8. Hypertension - Blood pressure controlled, home medications continued with dose adjustment as needed 9. Fibromyalgia?continue home meds 10. Dyslipidemia -Patient is on statin therapy, continued at home dose 11. Tobacco dependence - Counseled on cessation, offered nicotine patch for tobacco cravings Time spent in the patient's overall evaluation,decision-making process, review of diagnostic data, adjustment of management, discussion with other providers, nursing nursing and ancillary staff involved in patient's care documentation, 32 Minutes. Medications at Discharge Home Medications albuterol sulfate 90 mcg/actuation aerosol inhaler (ProAir HFA) 2 puff inhalation Q4H PRN PRN Sob &/Or Wheezing 07/26/14 nitroglycerin 0.4 mg sublingual tablet 0.4 mg sublingual PRN PRN CHEST PAIN 06/04/17 amitriptyline 100 mg tablet 100 mg PO QHS depresssion 10/10/22 meloxicam 7.5 mg tablet 7.5 mg PO DAILY pain 10/10/22 sumatriptan succinate 50 mg tablet 50 mg PO PRN PRN migraine headache 10/10/22 ondansetron 4 mg disintegrating tablet 4 mg PO Q8H PRN PRN Nausea #14 tabs 11/14/22 atorvastatin 40 mg tablet 40 mg PO QHS Cholesterol 05/11/23 buspirone 5 mg tablet 5 mg PO TID Anxiety 05/11/23 dexlansoprazole 60 mg capsule,biphase delayed release 60 mg PO DAILY GERD 05/11/23 escitalopram oxalate 20 mg tablet 20 mg PO DAILY depression 05/11/23 fluticasone propionate 50 mcg/actuation nasal spray,suspension 2 spray intranasal DAILY allergies 05/11/23 hydroxyzine HCl 50 mg tablet 50 mg PO TID PRN Anxiety 05/11/23 pregabalin 25 mg capsule 25 mg PO BID Nerve pain 05/11/23 tizanidine 4 mg tablet 4 mg PO QHS PRN PRN muscle spasm 05/11/23 acetaminophen 325 mg tablet 1,000 mg (3.0769 x 325 mg) PO Q8H PRN PRN fever/pain 1-10 #0 tabs 05/20/23 lisinopril 40 mg tablet 40 mg PO DAILY 06/04/23 amoxicillin 875 mg-potassium clavulanate 125 mg tablet 1 tab PO BID #14 tabs 06/06/23 furosemide 40 mg tablet 40 mg PO BIDCM water pill #120 tabs 06/06/23 guaifenesin 1,200 mg tablet, extended release 12 hr (Mucus Relief ER) 1,200 mg PO BID #20 tabs 06/06/23 potassium chloride 20 mEq tablet,extended release(part/cryst) 20 meq PO DAILYCM #30 tabs 06/06/23 prednisone 20 mg tablet 20 mg PO BID #14 tabs 06/06/23 Physical Exam Narrative GENERAL: cooperative HEENT: Atraumatic; normocephalic EYES; Anicteric, Normal Conjunctiva NECK; supple, normal thyroid, RESPIRATORY: Diminished to auscultation CARDIOVASCULAR: Regular S1 S2, GI: soft, normoactive bowel sounds, : No Renal angle tenderness; EXTREMITIES: No edema, no clubbing, MUSCULOSKELETAL: no muscle wasting NEURO: Awake; no lateralizing signs. SKIN: No Rash PSYCH; Flat affect Weight / BMI Weight Weight: 58.7 kg Body Mass Index (BMI) 24.4 ABG / Lab / Microbiology Data 06/06/23 07:35 06/06/23 07:35 Laboratory: Laboratory Results - last 24 hr 06/06/23 07:35: WBC 7.4, RBC 3.62 L, Hgb 10.9 L, Hct 34.0 L, MCV 93.9, MCH 30.1, MCHC 32.1, RDW Std Deviation 52.8 H, RDW Coeff of Alejandra 15.3 H, Plt Count 208, MPV 9.4, Immature Gran % (Auto) 0.400, Neut % (Auto) 63.7, Lymph % (Auto) 21.0, Fountain % (Auto) 7.3, Eos % (Auto) 6.9 H, Baso % (Auto) 0.7, Absolute Neuts (auto) 4.8, Absolute Lymphs (auto) 1.56, Nucleated RBC % 0, Sodium 140, Potassium 3.4 L, Chloride 103, Carbon Dioxide 30.0, Anion Gap 7, BUN 23 H, Creatinine 1.14 H, Estim Creat Clear Calc 42.13, Est GFR (MDRD) Af Amer 62, Est GFR (MDRD) Non-Af 51 L, BUN/Creatinine Ratio 20.2 H, Glucose 180 H, Calcium 8.3 L, Phosphorus 3.8, Magnesium 1.8 Microbiology: Microbiology 06/04/23 20:20 Urine Catheter - Byrne Legionella Antigen - Final 06/04/23 20:20 Urine Catheter - Byrne Streptococcus pneumoniae Antigen (M - Final 06/04/23 11:30 Mucosa - Nose SARS-CoV-2, Influenza & RSV (PCR) - Final Radiography Diagnostic Testing: Radiology Impression Echocardiogram 06/05/23 09:03 Interpretation Summary Normal LV size. Left ventricular systolic function is normal. The estimated ejection fraction is 65 %. Normal left atrium. Pulmonary artery systolic pressure is 35 mmHg. Ordering Physician: Guevara Bates Performed By: Rosangela Gray, JAMESON D/C Instructions Discharge Diet: 8 Cup Fluid Restriction and 2000 mg Sodium Diet Discharge Activity: Return to Normal Activity Call your doctor if you observe: Fever of 101 or Higher, Shortness of breath, Fainting spells and Chest pain Meaningful Use Info Meaningful Use Diagnoses (Choose all that apply): CHF CHF AKANKSHA/ARB ordered at discharge?: Yes Documented LVEF (%): 65 Discharge Plan Admission Admit Date/Time: 06/04/23 14:20 Attending Provider: Guevara Bates Primary Care Provider: DALI FRAGOSO Consulting Providers: Sid Hillman Discharge Orders/Prescriptions Prescriptions: New potassium chloride 20 mEq Tablet,Er Particles/Crystals 20 meq PO DAILYCM Qty: 30 0RF guaifenesin [Mucus Relief ER] 1,200 mg Tablet Extended Release 12hr 1,200 mg PO BID Qty: 20 0RF prednisone 20 mg tablet 20 mg PO BID Qty: 14 0RF amoxicillin-pot clavulanate 875-125 mg tablet 1 tab PO BID Qty: 14 0RF Continued albuterol sulfate [ProAir HFA] 1 PUFF inhaler 2 puff inhalation Q4H PRN PRN (Reason: Sob &/Or Wheezing) nitroglycerin 0.4 MG tablet, sublingual 0.4 mg sublingual PRN PRN (Reason: CHEST PAIN) ondansetron 4 mg tablet,disintegrating 4 mg PO Q8H PRN PRN (Reason: Nausea) Qty: 14 0RF amitriptyline 100 mg tablet 100 mg PO QHS sumatriptan succinate 50 mg tablet 50 mg PO PRN PRN (Reason: migraine headache) meloxicam 7.5 mg tablet 7.5 mg PO DAILY Patient Comments: TAKE ONE TABLET BY MOUTH DAILY AT 9AM escitalopram oxalate 20 mg tablet 20 mg PO DAILY fluticasone propionate 50 mcg/actuation spray,suspension 2 spray INTRANASAL DAILY tizanidine 4 mg tablet 4 mg PO QHS PRN PRN (Reason: muscle spasm) atorvastatin 40 mg tablet 40 mg PO QHS buspirone 5 mg tablet 5 mg PO TID dexlansoprazole 60 mg capsule,biphase delayed releas 60 mg PO DAILY hydroxyzine HCl 50 mg tablet 50 mg PO TID PRN (Reason: Anxiety) pregabalin 25 mg capsule 25 mg PO BID acetaminophen 325 mg Tablet 1,000 mg PO Q8H PRN PRN (Reason: fever/pain 1-10) Qty: 0 0RF lisinopril 40 mg tablet 40 mg PO DAILY Changed furosemide 40 mg tablet 40 mg PO BIDCM Qty: 120 0RF Referrals / Follow Up: DALI FRAGOSO, PC SUPPORT SPECIALIST-C [Primary Care Provider] - Within 1 Week Disposition Disposition (needs filled in before D/C Order can be placed): Home, Self Care Charges/Coding Visit Charges Inpatient E&M: 67045 Disch Hosp >30min
[2023-06-06] MEDS: Potassium Chloride Oral Tablet 20 MEQ PO (10:57)
--- NOTE | 2023-06-06 12:46 | CASEMGMT ---
Patient has order for discharge. Patient requiring increase in home oxygen at discharge. Script received and sent to [facility] via [employer]. RN CM sent referral to CCN as discussed. RN CM in to discuss needs at discharge. RN CM updated regarding CCN referral and increase in home oxygen. RN CM updated patient that family will need to bring oxygen tank from home for at discharge, patient voiced understanding and will have boyfriend bring one in when he picks her up. RN CM updated discharge plan. Patient had no further questions or concerns.
--- NOTE | 2023-06-07 11:48 | CCN.REFER ---
PATIENT DOES NOT QUALIFY FOR CCN DUE TO DX BIPOLAR AND USE OF MULTIPLE DIFFERENT PSYCH MEDS.
== END 2023-06-06 14:00 | disposition home or self-care (01) | DRG 177 ==
LOC: ED 14:29 → PCU 15:01
PROVIDERS: Admitting Provider Internal Medicine; Emergency Provider Emergency Medicine; PCP Nurse Practitioner; Visit Provider Internal Medicine
DX: J15.69 Pneumonia due to other Gram-negative bacteria (principal); I50.33 Acute on chronic diastolic (congestive) heart failure; J96.11 Chronic respiratory failure with hypoxia; E87.20 Acidosis, unspecified; J44.0 Chronic obstructive pulmonary disease with (acute) lower respiratory infection; I11.0 Hypertensive heart disease with heart failure; F31.9 Bipolar disorder, unspecified; E78.5 Hyperlipidemia, unspecified; G24.01 Drug induced subacute dyskinesia; M79.7 Fibromyalgia; I25.2 Old myocardial infarction; F41.9 Anxiety disorder, unspecified; T43.8X5A Adverse effect of other psychotropic drugs, initial encounter; Z99.81 Dependence on supplemental oxygen; Z79.899 Other long term (current) drug therapy; Z87.891 Personal history of nicotine dependence
CPT/HCPCS: 36415; 36600; 71045; 80048; 82803; 83605; 83735; 83880; 84100; 84484; 85025; 85610; 85730; 87040; 87449; 87631; 93005; 93306; 94002; 94640; 94668; 97162; 99285; J7030; A4216; J1940; J2405

== ENCOUNTER 2023-09-27 11:30 | Emergency (ER) | payer MEDICARE, MEDICAID, SELFPAY ==
[2023-09-27 11:30] VITALS: BP 152/112; BP 161/103; PULSE 69; PULSE 75; RESP 14; RESP 16; TEMP 36.2; O2SAT 95; O2SAT 98; BMI 22.8
--- NOTE | 2023-09-27 11:53 | EDS_ITS ---
HPI History of Present Illness Chief Complaint: Other, Pain/Inj Informant: patient Narrative Narrative: 62-year-old female presented to the emergency room with swelling and pain to open in the left naris. Patient wears home O2 and believes this has caused an issue at the opening to her left naris. She states it began like a pimple but has grown rapidly and become more painful. She states she supposed to be wearing 6 L nasal cannula but she is also 98% on room air and not having any difficulty breathing. Patient denies any history of prior abscesses. She states she went to urgent care was sent to the hospital. [facility] Medical History Anxiety Depression Kidney disease GERD (gastroesophageal reflux disease) Former smoker On home oxygen therapy Irregular heart beat Myocardial infarct Migraines Fibromyalgia NSTEMI (non-ST elevated myocardial infarction) Hypertension Rheumatoid arthritis Bipolar 1 disorder COPD (chronic obstructive pulmonary disease) COPD (chronic obstructive pulmonary disease) Home Medications ?Medication ?Instructions ?Recorded ?Last Taken ?Type albuterol sulfate 90 mcg/actuation 2 puff inhalation Q4H PRN PRN Sob 07/26/14 06/06/17 History aerosol inhaler (ProAir HFA) &/Or Wheezing nitroglycerin 0.4 mg sublingual 0.4 mg sublingual PRN PRN CHEST 06/04/17 Unknown History tablet PAIN amitriptyline 100 mg tablet 100 mg PO QHS depresssion 10/10/22 Unknown History meloxicam 7.5 mg tablet 7.5 mg PO DAILY pain 10/10/22 Unknown History sumatriptan succinate 50 mg tablet 50 mg PO PRN PRN migraine headache 10/10/22 Unknown History ondansetron 4 mg disintegrating 4 mg PO Q8H PRN PRN Nausea #14 tabs 11/14/22 Unknown Rx tablet atorvastatin 40 mg tablet 40 mg PO QHS Cholesterol 05/11/23 Unknown History buspirone 5 mg tablet 5 mg PO TID Anxiety 05/11/23 Unknown History dexlansoprazole 60 mg 60 mg PO DAILY GERD 05/11/23 Unknown History capsule,biphase delayed release escitalopram oxalate 20 mg tablet 20 mg PO DAILY depression 05/11/23 Unknown History fluticasone propionate 50 2 spray intranasal DAILY allergies 05/11/23 Unknown History mcg/actuation nasal spray,suspension hydroxyzine HCl 50 mg tablet 50 mg PO TID PRN Anxiety 05/11/23 Unknown History pregabalin 25 mg capsule 25 mg PO BID Nerve pain 05/11/23 Unknown History tizanidine 4 mg tablet 4 mg PO QHS PRN PRN muscle spasm 05/11/23 Unknown History acetaminophen 325 mg tablet 1,000 mg (3.0769 x 325 mg) PO Q8H 05/20/23 Unknown Rx PRN PRN fever/pain 1-10 #0 tabs lisinopril 40 mg tablet 40 mg PO DAILY blood pressure 06/04/23 Unknown History furosemide 40 mg tablet 40 mg PO BIDCM water pill #120 tabs 06/06/23 Unknown Rx guaifenesin 1,200 mg tablet, 1,200 mg PO BID #20 tabs 06/06/23 Unknown Rx extended release 12 hr (Mucus Relief ER) potassium chloride 20 mEq 20 meq PO DAILYCM #30 tabs 06/06/23 Unknown Rx tablet,extended release(part/cryst) prednisone 20 mg tablet 20 mg PO BID #14 tabs 06/06/23 Unknown Rx oxycodone-acetaminophen 5 mg-325 1 tab PO Q6H PRN pain 3 days #12 09/27/23 Unknown Rx mg tablet (Percocet) tabs sulfamethoxazole 800 1 tab PO BID #14 TABLETS 09/27/23 Unknown Rx mg-trimethoprim 160 mg tablet Allergy/AdvReac Type Severity Reaction Status Date / Time methotrexate Allergy Other Verified 09/27/23 11:30 nadolol Allergy Unknown Verified 09/27/23 11:30 prochlorperazine Allergy PT UNABLE Verified 09/27/23 11:30 TO RESPOND-NEEDS F/U baclofen AdvReac Other Verified 09/27/23 11:30 lorazepam (From Ativan) AdvReac Nausea Verified 09/27/23 11:30 propranolol AdvReac Other Verified 09/27/23 11:30 Social History Smoking Status: Former smoker ROS ROS ED Constitutional Constitutional ED: Denies chills or weight loss Eyes Eyes: Denies change in vision or diplopia ENT ENT ED: Denies ear pain, rhinorrhea or sore throat Cardiovascular Cardiovascular: Denies chest pain, orthopnea, palpitations or racing heartbeat Respiratory/Chest Respiratory/Chest: Denies cough, dyspnea or orthopnea Gastrointestinal Gastrointestinal: Denies abdominal pain, diarrhea, nausea or vomiting Genitourinary Genitourinary ED: Denies dysuria, hematuria or urinary frequency Musculoskeletal Musculoskeletal: Denies arthralgias or myalgias Integumentary Reports abscess; Denies rash Neurologic Neurologic: Denies headache(s) or weakness Psychiatric Psychiatric: Denies anxiety, depression, suicidal ideation or suicidal thoughts Endocrine Endocrinology: Denies polydipsia, polyphagia or polyuria Allergic/Immunologic Allergic/Immunologic ED: Denies mouth swelling, tongue swelling or urticaria EXAM Physical Exam Const Vital Signs: 09/27/23 11:30 09/27/23 11:30 09/27/23 12:05 Temperature 97.1 F L 97.1 F L Temperature Source Temporal Temporal Pulse Rate 69 75 74 Respiratory Rate 16 14 16 Respiratory Pattern Blood Pressure 161/103 H 152/112 H 152/103 H Blood Pressure Mean 122 125 119 Pulse Ox 95 98 98 Oxygen Delivery Method Room Air Room Air Room Air 09/27/23 12:09 Temperature Temperature Source Pulse Rate Respiratory Rate Respiratory Pattern Normal Blood Pressure Blood Pressure Mean Pulse Ox Oxygen Delivery Method Positive well nourished and well developed General Appearance ED: well developed HEENT Reports normocephalic, head/scalp atraumatic and moist mucous membranes HEENT Narrative: Opening of the left nares demonstrates along the medial surface and 1/2 cm to 3 to 4 cm abscess with some mild surrounding erythema. It is pustular in nature. Tender to palpation. I do not see any intraoral extension. Eyes PERRL and EOMs intact bilaterally Neck no lymphadenopathy, supple and no JVD Resp normal respiratory effort and clear to auscultation bilaterally Cardio regular rate, regular rhythm and no murmurs GI normal to inspection, nondistended, normoactive bowel sounds and non-tender Palpation: soft Back/Spine no CVA tenderness and normal ROM Extremity normal to inspection General Extremety ED: Negative for edema General Extremity: Negative for edema Neuro oriented x3 and CN's II-XII intact bilaterally Sensorium / Orientation: alert Motor Exam: strength 5/5 throughout Psych mental status grossly normal Mood & Affect: Negative for depressed or tearful Skin no rashes or lesions noted and no wounds MDM MDM MDM Narrative Medical decision making narrative: Differential diagnosis includes but not limited to infected cyst abscess and malignancy Patient provided informed written consent for incision and drainage of the abscess. Wound was topically anesthetized using LAT and then 1% lidocaine instilled to the area. Wound washed with Betadine. A small 4 mm incision was made using 11 blade. This revealed a large necrotic like cavity with thick whitish discharge in the bottom of the cavity. I was able to express minimal amount of pus. Patient is going to be placed on Bactrim. Wound culture sent. I will write for pain medication. Follow-up with primary care in a week. History & Record Review Discussion w/independent historian: Patient and Significant other Discharge Plan Triage Chief Complaint: Other, Pain/Inj ED Provider: Zurdo Howard Dx/Rx/DC Orders Clinical Impression: Abscess of face Instructions: ED Abscess Incision And Drainage Prescriptions: New sulfamethoxazole-trimethoprim 800-160 mg tablet 1 tab PO BID Qty: 14 0RF oxycodone-acetaminophen [Percocet] 5-325 mg tablet 1 tab PO Q6H PRN (Reason: pain) 3 Days Qty: 12 0RF No Action albuterol sulfate [ProAir HFA] 1 PUFF inhaler 2 puff inhalation Q4H PRN PRN (Reason: Sob &/Or Wheezing) nitroglycerin 0.4 MG tablet, sublingual 0.4 mg sublingual PRN PRN (Reason: CHEST PAIN) ondansetron 4 mg tablet,disintegrating 4 mg PO Q8H PRN PRN (Reason: Nausea) Qty: 14 0RF amitriptyline 100 mg tablet 100 mg PO QHS sumatriptan succinate 50 mg tablet 50 mg PO PRN PRN (Reason: migraine headache) meloxicam 7.5 mg tablet 7.5 mg PO DAILY Patient Comments: TAKE ONE TABLET BY MOUTH DAILY AT 9AM escitalopram oxalate 20 mg tablet 20 mg PO DAILY fluticasone propionate 50 mcg/actuation spray,suspension 2 spray INTRANASAL DAILY tizanidine 4 mg tablet 4 mg PO QHS PRN PRN (Reason: muscle spasm) atorvastatin 40 mg tablet 40 mg PO QHS buspirone 5 mg tablet 5 mg PO TID dexlansoprazole 60 mg capsule,biphase delayed releas 60 mg PO DAILY hydroxyzine HCl 50 mg tablet 50 mg PO TID PRN (Reason: Anxiety) pregabalin 25 mg capsule 25 mg PO BID acetaminophen 325 mg Tablet 1,000 mg PO Q8H PRN PRN (Reason: fever/pain 1-10) Qty: 0 0RF lisinopril 40 mg tablet 40 mg PO DAILY potassium chloride 20 mEq Tablet,Er Particles/Crystals 20 meq PO DAILYCM Qty: 30 0RF guaifenesin [Mucus Relief ER] 1,200 mg Tablet Extended Release 12hr 1,200 mg PO BID Qty: 20 0RF furosemide 40 mg tablet 40 mg PO BIDCM Qty: 120 0RF prednisone 20 mg tablet 20 mg PO BID Qty: 14 0RF Primary Care Provider: DALI FRAGOSO Referrals: DALI FRAGOSO, PRODUCTION LINE ASSEMBLER-C [Primary Care Provider] - 1 Week if not improving Print Language: [place] Disposition Disposition: Home, Self Care
[2023-09-27 12:05] VITALS: BP 152/103; PULSE 74; RESP 16; TEMP 36.2; O2SAT 98
[2023-09-27] MEDS: Lidocaine/Epi/Tetracaine 50 ML 1 APPLIC TOPICAL (12:10)
[2023-09-27] MEDS: Lidocaine 1% (20 ml mdv) 20 ML Vial INFILT (12:10)
[2023-09-27] MEDS: oxyCODONE 5 MG Tablet PO (13:33)
== END 2023-09-27 13:39 | disposition home or self-care (01) ==
PROVIDERS: Emergency Provider Emergency Medicine; PCP Nurse Practitioner; Visit Provider Emergency Medicine
DX: L02.01 Cutaneous abscess of face (principal); J44.9 Chronic obstructive pulmonary disease, unspecified; I10 Essential (primary) hypertension; Z99.81 Dependence on supplemental oxygen; Z79.899 Other long term (current) drug therapy; Z87.891 Personal history of nicotine dependence
CPT/HCPCS: 10060; 87070; 87077; 87186; 87205; 99283

== ENCOUNTER → 2024-03-30 | Outpatient (CLI) | payer MEDICARE, SELFPAY ==
--- NOTE | 2024-03-30 13:44 | RAD_ITS ---
EXAM: XR LUMBOSACRAL SPINE, 2 OR 3 VIEWS CLINICAL INDICATION: Lumbar spondylosis TECHNIQUE: Frontal and lateral views of the lumbar spine and sacrum. COMPARISON: No relevant prior studies available. FINDINGS: VERTEBRAE: Unremarkable. Preserved vertebral body height. No fracture. No spondylolisthesis. Preservation of the normal lumbar lordosis. No significant facet arthropathy. DISC SPACES: No acute findings. Disc spaces are maintained. GASTROINTESTINAL TRACT: Unremarkable as visualized. Included bowel gas pattern is non-obstructive. RAD/Lumbar Spine 2 or 3 Views IMPRESSION: No evidence of lumbar spinal fracture or spondylolisthesis. Electronically Signed: Silviano Higuera MD at 23:43 EST ,
--- NOTE | 2024-03-30 13:44 | RAD_ITS ---
EXAM: XR THORACIC SPINE, 2 VIEWS CLINICAL INDICATION: thoracic spondylosis TECHNIQUE: Frontal and lateral views of the thoracic spine. COMPARISON: No relevant prior studies available. FINDINGS: VERTEBRAE: There is marked kyphosis. There is scoliotic curvature of the thoracic spine. Preserved vertebral body height. No fracture. No spondylolisthesis. No significant facet arthropathy. DISC SPACES: There is multilevel degenerative change with disc space narrowing. RAD/Thoracic Spine 2 Views IMPRESSION: Accentuated kyphosis with multilevel degenerative change with disc space narrowing. There is mild curvature of the thoracic spine. There is no acute osseous abnormality. Electronically Signed: Silviano Higuera MD at 23:11 EST ,
== END | disposition home or self-care (01) ==
PROVIDERS: PCP Nurse Practitioner; Referring Provider Anesthesiology; Visit Provider Anesthesiology
DX: M47.814 Spondylosis without myelopathy or radiculopathy, thoracic region (principal); M47.816 Spondylosis without myelopathy or radiculopathy, lumbar region
CPT/HCPCS: 72070; 72100

== ENCOUNTER 2024-05-01 11:04 | Inpatient (IN) | payer MEDICARE, SELFPAY ==
[2024-05-01] VITALS (13 sets, daily range): BP systolic 124–182; BP diastolic 72–127; PULSE 73–88; RESP 15–20; TEMP 36.6–37.1; O2SAT 93–96; BMI 28.5; BMI 31.6
--- NOTE | 2024-05-01 11:21 | EKG12_ITS ---
Test Reason : Blood Pressure : */* mmHG Vent. Rate : 83 BPM Atrial Rate : 83 BPM P-R Int : 136 ms QRS Dur : 82 ms QT Int : 408 ms P-R-T Axes : 45 47 69 degrees QTcB Int : 479 ms Normal sinus rhythm Normal ECG Confirmed by Fareed Maxwell ([id number]), web editor GUSTAVO VICENTE ([id number]) on 05/04/2024 10:46:58 AM Referred By: SALONI Confirmed By: Fareed Maxwell
[2024-05-01] MEDS: Ipratropium/Albuterol Sulfate 3 ML AMPUL.NEB INHALATION ×2 (11:41)
[2024-05-01 11:47] LABS: Absolute Lymphocyte Count 2.65 X10^3/uL (0.83-4.51); Absolute Neutrophil Count 7.8 X10^3/uL (2.0-7.7); Basophil# 0.06 X10^3/uL; Basophil% 0.5 % (0-1); Eosinophil# 0.41 X10^3/uL; Eosinophils% 3.6 % (0-5); Hemoglobin 12.4 g/dL (12.0-15.0); Lymphocyte # 2.65 X10^3/ul (0.83-4.51); Mean Corp Hgb Conc 32.6 g/dL (32-36); Mean Platelet Vol. 9.8 fl (6.2-12.0); Monocyte# 0.56 X10^3/uL; Monocyte% 4.9 % (0-10); NRBC Flagged by Analyzer 0 % (0-5); Neutrophil # 7.78 X10^3/uL (2.7-7.7); Neutrophil % 67.6 % (47-70); Platelet Count 287 K/mm3 (150-450); RBC Distribution Width CV 13.8 % (11.6-14.6); RBC Distribution Width SD 46.6 fl (35.1-43.9); Red Blood Count 4.13 M/mm3 (4.2-5.4); White Blood Count 11.5 K/mm3 (4.4-11.0)
[2024-05-01] MEDS: MethylPREDNISolone 125 MG/2 ML Vial IV (11:52)
[2024-05-01 11:59] LABS: Anion Gap 10 (5-15); BUN 25 mg/dL (4-19); Calcium 8.8 mg/dL (7.6-11.0); Carbon Dioxide 25.5 mmol/L (22.0-29.0); Chloride 104 mmol/L (96-108); EST Glomerular Filtration Rate 56 (>60); Estimated Creatinine Clearance 44.48 ml/min; Glucose 149 mg/dL (70-99); Potassium 3.7 mmol/L (3.3-5.1); Pro- Brain NATRIURETIC PEPTIDE 712 pg/mL (<=900); Sodium Level 140 mmol/L (133-145); Troponin T High Sensitivity 14 ng/L (<=14)
--- NOTE | 2024-05-01 12:00 | RAD_ITS ---
PROCEDURE: CHEST PA AND LATERAL REASON FOR EXAM: Worsening dyspnea. Abdominal swelling TECHNIQUE: Frontal and lateral views of the chest. COMPARISON: Chest dated 06/04/2023. FINDINGS: Lungs: Atelectasis and/or early infiltrate in the lower lobes. Pleura: No pleural effusions or pneumothorax. Heart: Mild cardiac enlargement. Mediastinum/Estella: Unremarkable. Great vessels: Atherosclerotic and tortuous aorta. Bones/soft tissues: Exaggerated kyphosis, mid to lower thoracic spine. RAD/Chest PA and Lateral IMPRESSION: Atelectasis and/or infiltrate in the lower lobes. Mild cardiac enlargement. Exaggerated kyphosis. Reading Location: [place] [id number]
--- NOTE | 2024-05-01 12:20 | EDS_ITS ---
HPI History of Present Illness Chief Complaint: Shortness of Breath Narrative Narrative: Patient is a 63-year-old female past medical history of CHF, anxiety, depression, COPD chronically on 4 L nasal cannula, bipolar disorder, hypertension who presented to the emergency department with a chief complaint of shortness of breath. According to EMS she was hypoxic in the mid 80s on room air. According to them she has not been able to afford to pay her home health bill therefore they have not delivered oxygen and she has been off her oxygen for several days. Patient states that she woke up this morning could not breathe prompting her to call EMS to have her brought here for the valuation management. Patient states that the breathing treatment that EMS provided her did seem to help. Patient denies any recent steroid use. [facility] Medical History CHF (congestive heart failure) Anxiety Depression Kidney disease GERD (gastroesophageal reflux disease) Former smoker On home oxygen therapy Irregular heart beat Myocardial infarct Migraines Fibromyalgia NSTEMI (non-ST elevated myocardial infarction) Hypertension Rheumatoid arthritis Bipolar 1 disorder COPD (chronic obstructive pulmonary disease) COPD (chronic obstructive pulmonary disease) Home Medications ?Medication ?Instructions ?Recorded ?Last Taken ?Type albuterol sulfate 90 mcg/actuation 2 puff inhalation Q 4H PRN PRN Sob 07/26/14 06/06/17 History aerosol inhaler (ProAir HFA) &/Or Wheezing nitroglycerin 0.4 mg sublingual 0.4 mg sublingual PRN PRN CHEST 06/04/17 Unknown History tablet PAIN amitriptyline 100 mg tablet 100 mg PO QHS depresssion 10/10/22 Unknown History meloxicam 7.5 mg tablet 7.5 mg PO DAILY pain 3 Unknown History sumatriptan succinate 50 mg tablet 50 mg PO PRN PRN mi graine headache 10/10/22 Unknown History ondansetron 4 mg disintegrating 4 mg PO Q8H PRN PRN Na usea #14 tabs 11/14/22 Unknown Rx tablet atorvastatin 40 mg tablet 40 mg PO QHS Cholesterol 11/25 Unknown History buspirone 5 mg tablet 5 mg PO TID Anxiety 05/11/23 Unknown History dexlansoprazole 60 mg 60 mg PO DAILY GERD 05/11/23 Unknown History capsule,biphase delayed release escitalopram oxalate 20 mg tablet 20 mg PO DAILY depre ssion 05/11/23 Unknown History fluticasone propionate 50 2 spray intranasal DAILY all ergies 05/11/23 Unknown History mcg/actuation nasal spray,suspension hydroxyzine HCl 50 mg tablet 50 mg PO TID PRN Anxiety 05/11/23 Unknown History pregabalin 25 mg capsule 25 mg PO BID Nerve pain 11/25 Unknown History tizanidine 4 mg tablet 4 mg PO QHS PRN PRN muscle s pasm 05/11/23 Unknown History acetaminophen 325 mg tablet 1,000 mg (3.0769 x 325 mg) PO Q8H 05/20/23 Unknown Rx PRN PRN fever/pain 1-10 #0 tabs lisinopril 40 mg tablet 40 mg PO DAILY blood pressur e 06/04/23 Unknown History furosemide 40 mg tablet 40 mg PO BIDCM water pill #1 20 tabs 06/06/23 Unknown Rx guaifenesin 1,200 mg tablet, 1,200 mg PO BID #20 tabs 06/06/23 Unknown Rx extended release 12 hr (Mucus Relief ER) potassium chloride 20 mEq 20 meq PO DAILYCM #30 tabs 0 06/06/23 Unknown Rx tablet,extended release(part/cryst) prednisone 20 mg tablet 20 mg PO BID #14 tabs Unknown Rx oxycodone-acetaminophen 5 mg-325 1 tab PO Q6H PRN pain 3 days #12 09/27/23 Unknown Rx mg tablet (Percocet) tabs sulfamethoxazole 800 1 tab PO BID #14 TABLETS Unknown Rx mg-trimethoprim 160 mg tablet Allergy/AdvReac Type Severity Reaction Status Date / Time methotrexate Allergy Other Verified 05/01/24 11:10 nadolol Allergy Unknown Verified 05/01/24 11:10 prochlorperazine Allergy PT UNABLE Verified 05/01/24 11:10 TO RESPOND-NEEDS F/U baclofen AdvReac Other Verified 05/01/24 11:10 lorazepam (From Ativan) AdvReac Nausea Verified 05/01/24 11:10 propranolol AdvReac Other Verified 05/01/24 11:10 Social History Smoking Status: Former smoker ROS ROS ED ROS Narrative Constitutional: Denies fevers, chills, headaches, lightness, dizziness Eyes: Denies change in vision double vision blurry vision Cardiovascular: Denies chest pain palpitations Respiratory: Complains of cough and shortness of breath as noted above Abdomen: Denies abdominal pain nausea vomit diarrhea : Denies urinary symptoms Neurological: Denies numbness, weakness, tingling Musculoskeletal: Denies back pain
--- NOTE | 2024-05-01 12:20 | EX.ED.DYSGE1 ---
HPI History of Present Illness Chief Complaint: Shortness of Breath Narrative Narrative: Patient is a 63-year-old female past medical history of CHF, anxiety, depression, COPD chronically on 4 L nasal cannula, bipolar disorder, hypertension who presented to the emergency department with a chief complaint of shortness of breath. According to EMS she was hypoxic in the mid 80s on room air. According to them she has not been able to afford to pay her home health bill therefore they have not delivered oxygen and she has been off her oxygen for several days. Patient states that she woke up this morning could not breathe prompting her to call EMS to have her brought here for the valuation management. Patient states that the breathing treatment that EMS provided her did seem to help. Patient denies any recent steroid use. [facility] Medical History CHF (congestive heart failure) Anxiety Depression Kidney disease GERD (gastroesophageal reflux disease) Former smoker On home oxygen therapy Irregular heart beat Myocardial infarct Migraines Fibromyalgia NSTEMI (non-ST elevated myocardial infarction) Hypertension Rheumatoid arthritis Bipolar 1 disorder COPD (chronic obstructive pulmonary disease) COPD (chronic obstructive pulmonary disease) Home Medications ?Medication ?Instructions ?Recorded ?Last Taken ?Type albuterol sulfate 90 mcg/actuation 2 puff inhalation Q4H PRN PRN Sob 07/26/06/06/17 History aerosol inhaler (ProAir HFA) &/Or Wheezing nitroglycerin 0.4 mg sublingual 0.4 mg sublingual PRN PRN CHEST 06/04/17 Unknown History tablet PAIN amitriptyline 100 mg tablet 100 mg PO QHS depresssion 10/10/22 Unknown History meloxicam 7.5 mg tablet 7.5 mg PO DAILY pain 10/10/22 Unknown History sumatriptan succinate 50 mg tablet 50 mg PO PRN PRN migraine headache 10/10/22 Unknown History ondansetron 4 mg disintegrating 4 mg PO Q8H PRN PRN Nausea #14 tabs 11/14/22 Unknown Rx tablet atorvastatin 40 mg tablet 40 mg PO QHS Cholesterol 05/11/23 Unknown History buspirone 5 mg tablet 5 mg PO TID Anxiety 05/11/23 Unknown History dexlansoprazole 60 mg 60 mg PO DAILY GERD 05/11/23 Unknown History capsule,biphase delayed release escitalopram oxalate 20 mg tablet 20 mg PO DAILY depression 05/11/23 Unknown History fluticasone propionate 50 2 spray intranasal DAILY allergies 05/11/23 Unknown History mcg/actuation nasal spray,suspension hydroxyzine HCl 50 mg tablet 50 mg PO TID PRN Anxiety 05/11/23 Unknown History pregabalin 25 mg capsule 25 mg PO BID Nerve pain 05/11/23 Unknown History tizanidine 4 mg tablet 4 mg PO QHS PRN PRN muscle spasm 05/11/23 Unknown History acetaminophen 325 mg tablet 1,000 mg (3.0769 x 325 mg) PO Q8H 05/20/23 Unknown Rx PRN PRN fever/pain 1-10 #0 tabs lisinopril 40 mg tablet 40 mg PO DAILY blood pressure 06/04/23 Unknown History furosemide 40 mg tablet 40 mg PO BIDCM water pill #120 tabs 06/06/23 Unknown Rx guaifenesin 1,200 mg tablet, 1,200 mg PO BID #20 tabs 06/06/23 Unknown Rx extended release 12 hr (Mucus Relief ER) potassium chloride 20 mEq 20 meq PO DAILYCM #30 tabs 06/06/23 Unknown Rx tablet,extended release(part/cryst) prednisone 20 mg tablet 20 mg PO BID #14 tabs 06/06/23 Unknown Rx oxycodone-acetaminophen 5 mg-325 1 tab PO Q6H PRN pain 3 days #12 09/27/23 Unknown Rx mg tablet (Percocet) tabs sulfamethoxazole 800 1 tab PO BID #14 TABLETS 09/27/23 Unknown Rx mg-trimethoprim 160 mg tablet Allergy/AdvReac Type Severity Reaction Status Date / Time methotrexate Allergy Other Verified 05/01/24 11:10 nadolol Allergy Unknown Verified 05/01/24 11:10 prochlorperazine Allergy PT UNABLE Verified 05/01/24 11:10 TO RESPOND-NEEDS F/U baclofen AdvReac Other Verified 05/01/24 11:10 lorazepam (From Ativan) AdvReac Nausea Verified 05/01/24 11:10 propranolol AdvReac Other Verified 05/01/24 11:10 Social History Smoking Status: Former smoker ROS ROS ED ROS Narrative Constitutional: Denies fevers, chills, headaches, lightness, dizziness Eyes: Denies change in vision double vision blurry vision Cardiovascular: Denies chest pain palpitations Respiratory: Complains of cough and shortness of breath as noted above Abdomen: Denies abdominal pain nausea vomit diarrhea : Denies urinary symptoms Neurological: Denies numbness, weakness, tingling Musculoskeletal: Denies back pain Skin: Denies rashes or lesions EXAM Physical Exam Narrative Exam Narrative: General: Patient was lying in bed rest comfortably did not appear to be in acute distress Head: Atraumatic, normocephalic Eyes: PERRL bilateral, EOMI bilateral, no conjunctival injection noted Neck: Soft, supple, trachea midline Cardiovascular: Regular rate and rhythm no murmurs gallops rubs noted Respiratory: Diminished breath sounds bilaterally no rales rhonchi or wheezes noted Abdomen: Soft, nondistended, nontender to palpation Extremities: +5/5 strength noted in the bilateral upper and lower extremities, radial pulses +2/4 in the bilateral extremities, no pedal edema no exam Neurological: Patient follow commands knew that she was at [facility] year is 2024 Skin: Warm, dry, intact no rashes or lesions noted Const Vital Signs: 05/01/24 11:05 05/01/24 11:21 05/01/24 11:26 Temperature 98.2 F Temperature Source Oral Pulse Rate 87 Respiratory Rate 15 Respiratory Effort Short of Breath Respiratory Depth Normal Respiratory Pattern Normal Blood Pressure 182/117 H Blood Pressure Mean 138 Pulse Ox 93 94 Oxygen Delivery Method Nasal Cannula Nasal Cannula Oxygen Flow Rate (L/min) 2 4 4 05/01/24 11:42 05/01/24 12:00 05/01/24 13:04 Temperature 98.4 F Temperature Source Oral Pulse Rate 83 83 88 Respiratory Rate 16 15 20 H Respiratory Effort Respiratory Depth Respiratory Pattern Normal Blood Pressure 129/77 H 148/96 H Blood Pressure Mean 90 113 Pulse Ox 94 96 Oxygen Delivery Method Nasal Cannula Nasal Cannula Oxygen Flow Rate (L/min) 4 4 05/01/24 15:00 Temperature Temperature Source Pulse Rate 73 Respiratory Rate 16 Respiratory Effort Respiratory Depth Respiratory Pattern Blood Pressure 144/84 H Blood Pressure Mean 104 Pulse Ox 94 Oxygen Delivery Method Nasal Cannula Oxygen Flow Rate (L/min) 4 MDM MDM MDM Narrative Medical decision making narrative: Patient is a 63-year-old female who presents to the emergency department with chief complaint of shortness of breath and cough. On the differential diagnose includes but not limited to COPD exacerbation, not having her home oxygen, CHF exacerbation, ACS. Once workup is obtained reviewed she will be reevaluated. Patient be given 2 more DuoNebs and Solu-Medrol Patient CBC was reviewed was significant leukocytosis of 11,000, hemoglobin 12.4, plate count was noted be 287. Patient's sodium normal 140, potassium normal at 3.7, creatinine normal at 1.10. Patient's troponin was noted to be 14 and 16 respectively proBNP was noted to be 712. Patient's chest x-ray reviewed by myself by radiology showed atelectasis and/or infiltrate in the lower lobes myocardial enlargement exaggerated kyphosis. Patient was ambulated here in the emergency department on her home oxygen requirements and she had episodes of desaturation during ambulation therefore we will discuss case with hospitalist for admission for COPD exacerbation versus CHF exacerbation. Patient was given Rocephin azithromycin Lasix. Discussed case with hospitalist Dr. Valencia who accept patient for admission. Patient notified is agreeable spinal cord concerns answered bedside.opperi Lab Data Labs: Laboratory Results - last 24 hr 05/01/24 05/01/24 11:18 13:28 WBC 11.5 H RBC 4.13 L Hgb 12.4 Hct 38.0 MCV 92.0 MCH 30.0 MCHC 32.6 RDW Std Deviation 46.6 H RDW Coeff of Alejandra 13.8 Plt Count 287 MPV 9.8 Immature Gran % (Auto) 0.400 Neut % (Auto) 67.6 Lymph % (Auto) 23.0 [place] % (Auto) 4.9 Eos % (Auto) 3.6 Baso % (Auto) 0.5 Absolute Neuts (auto) 7.8 H Absolute Lymphs (auto) 2.65 Nucleated RBC % 0 Sodium 140 Potassium 3.7 Chloride Direct 104 Carbon Dioxide 25.5 Anion Gap 10 BUN 25 H Creatinine 1.10 Estim Creat Clear Calc 44.48 Est GFR (MDRD) Non-Af 56 L BUN/Creatinine Ratio 23.0 H Glucose 149 H Calcium 8.8 Troponin T High Sens 14 Troponin T Hi Sens 2 Hr 29 H Troponin T Hi Sens 2Hr Delta 16 NT pro BNP II 712 Radiography Diagnostic Testing: Clinical Impression(s) from Imaging Studies Chest X-Ray 05/01/24 12:00 IMPRESSION: Atelectasis and/or infiltrate in the lower lobes. Mild cardiac enlargement. Exaggerated kyphosis. Reading Location: [place] [address] Discharge Plan Triage Chief Complaint: Shortness of Breath ED Provider: Anival Mejía Dx/Rx/DC Orders Clinical Impression: Acute on chronic hypoxic respiratory failure, CHF exacerbation Prescriptions: No Action albuterol sulfate [ProAir HFA] 1 PUFF inhaler 2 puff inhalation Q4H PRN PRN (Reason: Sob &/Or Wheezing) nitroglycerin 0.4 MG tablet, sublingual 0.4 mg sublingual PRN PRN (Reason: CHEST PAIN) ondansetron 4 mg tablet,disintegrating 4 mg PO Q8H PRN PRN (Reason: Nausea) Qty: 14 0RF amitriptyline 100 mg tablet 100 mg PO QHS sumatriptan succinate 50 mg tablet 50 mg PO PRN PRN (Reason: migraine headache) meloxicam 7.5 mg tablet 7.5 mg PO DAILY Patient Comments: TAKE ONE TABLET BY MOUTH DAILY AT 9AM escitalopram oxalate 20 mg tablet 20 mg PO DAILY fluticasone propionate 50 mcg/actuation spray,suspension 2 spray INTRANASAL DAILY tizanidine 4 mg tablet 4 mg PO QHS PRN PRN (Reason: muscle spasm) atorvastatin 40 mg tablet 40 mg PO QHS buspirone 5 mg tablet 5 mg PO TID dexlansoprazole 60 mg capsule,biphase delayed releas 60 mg PO DAILY hydroxyzine HCl 50 mg tablet 50 mg PO TID PRN (Reason: Anxiety) pregabalin 25 mg capsule 25 mg PO BID acetaminophen 325 mg Tablet 1,000 mg PO Q8H PRN PRN (Reason: fever/pain 1-10) Qty: 0 0RF lisinopril 40 mg tablet 40 mg PO DAILY potassium chloride 20 mEq Tablet,Er Particles/Crystals 20 meq PO DAILYCM Qty: 30 0RF guaifenesin [Mucus Relief ER] 1,200 mg Tablet Extended Release 12hr 1,200 mg PO BID Qty: 20 0RF furosemide 40 mg tablet 40 mg PO BIDCM Qty: 120 0RF prednisone 20 mg tablet 20 mg PO BID Qty: 14 0RF sulfamethoxazole-trimethoprim 800-160 mg tablet 1 tab PO BID Qty: 14 0RF oxycodone-acetaminophen [Percocet] 5-325 mg tablet 1 tab PO Q6H PRN (Reason: pain) 3 Days Qty: 12 0RF Primary Care Provider: DALI FRAGOSO Referrals: DALI FRAGOSO, LITIGATION LEGAL ASSISTANT-C [Primary Care Provider] - Print Language: Algerian Disposition Disposition: Acute Care [facility]
[2024-05-01] MEDS: Acetaminophen 500 MG Tablet 1000 MG PO (13:10)
[2024-05-01 13:59] LABS: TROPONIN VARIANCE 2 HR 16; Troponin T High Sens 2 HR 29 ng/L (<=14)
--- NOTE | 2024-05-01 15:45 | ED.RN ---
PT HAS AN ORDER FOR O2 RX THAT STATES, PER CASE MANAGEMENT, 2L NC AT REST AND 5L NC UP WITH EXERTION. PT WAS PLACED ON 2L NC WHILE RESTING AND SATS STAYED AT 94% WITH GOOD WAVE[employer]. THIS NURSE AMBULATED PT DOWN THE CHOI AT 6L NC WITH TANK ON WHEELS AND PT CONTINUOUSLY DROPPED HER O2 SATURATION. PT EXPLAINED SHE FELT VERY WEAK AND SOME DIZZINESS. PT'S O2 SATS DROPPED TO 86-87%. THIS NURSE HELPED PT BACK TO THE BED WHERE SHE WAS ABLE GET HER OXYGEN LEVELS BACK TO 93-94 ON THE 2L NC. DR GUALLPA ADVISED OF THIS.
[2024-05-01] MEDS: Furosemide 40 MG/4 ML Vial IV (16:00)
--- NOTE | 2024-05-01 16:37 | CM.ED ---
Social work Reason for referral: home health, O2 affordability Referral source: Dr. Mejía This SW acknowledged referral about patient's need for O2 at home, but report of financial difficulties preventing patient's access. This SW entered patient's room, introducing self and role at [facility]. Patient accepted SW visit, confirming that patient needed O2 tanks and tubing, as well as needing to verify if patient's insurance ([facility] Medicare) paid for patient's O2. Patient stated that patient has not had O2 for several days due to needing to pay someone money; patient was not sure who patient needed to pay. This SW verified that patient's O2 provider was [facility] and SW stated intent to come back to patient's room after making some phone calls. SW called Ramakrishna, [facility] appeals representative (ext [phone]). Ramakrishna confirmed patient is active with [facility] and patient's current script was for 2L at rest; 5L with ambulation. Ramakrishna stated that although patient had live rentals with [facility], patient had not received anything since January 2024. In a later phone call, Ramakrishna stated ability to send patient home with a tank and regulator if needed, but that patient would need to sign an ABN since patient had received the equipment before. Ramakrishna stated patient would be responsible for returning equipment as well. Ramakrishna agreed to come explain this to patient as well as this SW explaining to help the information be reiterated to patient. SW was told by Renee SILVA that patient's significant other, Trey, had arrived. Trey reportedly stated that patient has all necessary O2 equipment except for portable tanks. Trey stated patient having a concentrator at home that patient does not use as often as patient should. SW entered patient's room, introducing self and role at [facility] to Trey. Patient consented to talk in front of Trey and Trey provided the above updates to SW. Patient confirmed that patient feels better and stops using O2 as prescribed. Patient stated needing a nasal cannula and a portable tank to get home with, but patient confirmed having other necessary supplies. Nursing completed patient's O2 testing at current [facility] script; patient O2 level dropped with exertion and Dr. Mejía notified hospitalist for admission. SW encouraged patient to use O2 as prescribed and patient expressed understanding. SW inquired about patient's financial state and if Medicaid application was necessary. Patient stated being denied Medicaid coverage in the past due to making too much money, but patient reports just reapplying for Medicaid yesterday. Patient denied further needs at this time. Plan: handoff to acute RN CM/SW team for discharge planning needs. Marisol Smalls, BUSINESS DEVELOPMENT REPRESENTATIVE, MATERIAL REQUIREMENTS PLANNING MANAGER
[2024-05-01] MEDS: Ketorolac 15 MG/ML Vial IV (16:45)
[2024-05-01] MEDS: Ceftriaxone 1 GM/50 ML BAG IV (16:46)
--- NOTE | 2024-05-01 16:49 | PCM.HP.STD ---
[facility] - General General Date of Service: 05/01/24 Chief Complaint: Shortness of breath [facility] Narrative TOMI DIA, is a 63 F who presents with shortness of breath. Patient is home O2 dependent but is recently ran out of her oxygen and has been living without it. Just has gotten so short of breath so she presented to the emergency room here. She had a chest x-ray that is concerning for some infiltrates so she received antibiotics with ceftriaxone and azithromycin, methylprednisolone and bronchodilators. Additionally she received 40 mg of IV furosemide. Patient also complaining of a headache and did receive a dose of 50 mg of ketorolac. Patient denies any fever chills nor cough. [facility] Medical History (Updated 05/01/24 @ 16:[address] Trey Joe, ) CHF (congestive heart failure) Anxiety Depression Kidney disease GERD (gastroesophageal reflux disease) Former smoker On home oxygen therapy Irregular heart beat Myocardial infarct Migraines Fibromyalgia NSTEMI (non-ST elevated myocardial infarction) Hypertension Rheumatoid arthritis Bipolar 1 disorder COPD (chronic obstructive pulmonary disease) COPD (chronic obstructive pulmonary disease) Home Medications ?Medication ?Instructions ?Recorded ?Last Taken ?Type albuterol sulfate 90 mcg/actuation 2 puff inhalation Q4H PRN PRN Sob 07/26/06/06/17 History aerosol inhaler (ProAir HFA) &/Or Wheezing nitroglycerin 0.4 mg sublingual 0.4 mg sublingual PRN PRN CHEST 06/04/17 Unknown History tablet PAIN amitriptyline 100 mg tablet 100 mg PO QHS depresssion 10/10/22 Unknown History meloxicam 7.5 mg tablet 7.5 mg PO DAILY pain 10/10/22 Unknown History sumatriptan succinate 50 mg tablet 50 mg PO PRN PRN migraine headache 10/10/22 Unknown History ondansetron 4 mg disintegrating 4 mg PO Q8H PRN PRN Nausea #14 tabs 11/14/22 Unknown Rx tablet atorvastatin 40 mg tablet 40 mg PO QHS Cholesterol 05/11/23 Unknown History buspirone 5 mg tablet 5 mg PO TID Anxiety 05/11/23 Unknown History dexlansoprazole 60 mg 60 mg PO DAILY GERD 05/11/23 Unknown History capsule,biphase delayed release escitalopram oxalate 20 mg tablet 20 mg PO DAILY depression 05/11/23 Unknown History fluticasone propionate 50 2 spray intranasal DAILY allergies 05/11/23 Unknown History mcg/actuation nasal spray,suspension hydroxyzine HCl 50 mg tablet 50 mg PO TID PRN Anxiety 05/11/23 Unknown History pregabalin 25 mg capsule 25 mg PO BID Nerve pain 05/11/23 Unknown History tizanidine 4 mg tablet 4 mg PO QHS PRN PRN muscle spasm 05/11/23 Unknown History acetaminophen 325 mg tablet 1,000 mg (3.0769 x 325 mg) PO Q8H 05/20/23 Unknown Rx PRN PRN fever/pain 1-10 #0 tabs lisinopril 40 mg tablet 40 mg PO DAILY blood pressure 06/04/23 Unknown History furosemide 40 mg tablet 40 mg PO BIDCM water pill #120 tabs 06/06/23 Unknown Rx guaifenesin 1,200 mg tablet, 1,200 mg PO BID #20 tabs 06/06/23 Unknown Rx extended release 12 hr (Mucus Relief ER) potassium chloride 20 mEq 20 meq PO DAILYCM #30 tabs 06/06/23 Unknown Rx tablet,extended release(part/cryst) prednisone 20 mg tablet 20 mg PO BID #14 tabs 06/06/23 Unknown Rx oxycodone-acetaminophen 5 mg-325 1 tab PO Q6H PRN pain 3 days #12 09/27/23 Unknown Rx mg tablet (Percocet) tabs sulfamethoxazole 800 1 tab PO BID #14 TABLETS 09/27/23 Unknown Rx mg-trimethoprim 160 mg tablet Allergy/AdvReac Type Severity Reaction Status Date / Time methotrexate Allergy Other Verified 05/01/24 11:10 nadolol Allergy Unknown Verified 05/01/24 11:10 prochlorperazine Allergy PT UNABLE Verified 05/01/24 11:10 TO RESPOND-NEEDS F/U baclofen AdvReac Other Verified 05/01/24 11:10 lorazepam (From Ativan) AdvReac Nausea Verified 05/01/24 11:10 propranolol AdvReac Other Verified 05/01/24 11:10 Family History (Updated 05/01/24 @ 16:[address] Trey Joe DO) Other COPD (chronic obstructive pulmonary disease) Social History (Updated 05/01/24 @ 16:[address] Trey Joe DO) Smoking Status: Former smoker substance use type: marijuana ROS ROS Narrative All review of systems were negative except as mentioned above in the history of present illness and the other review of systems. Vital Signs Vital Signs Vital Signs: 05/01/24 11:05 05/01/24 11:21 05/01/24 11:26 Temperature 36.8 C Temperature Source Oral Pulse Rate 87 Respiratory Rate 15 Respiratory Effort Short of Breath Respiratory Depth Normal Respiratory Pattern Normal Blood Pressure 182/117 H Blood Pressure Mean 138 Pulse Ox 93 94 Oxygen Delivery Method Nasal Cannula Nasal Cannula Oxygen Flow Rate (L/min) 2 4 4 05/01/24 11:42 05/01/24 12:00 05/01/24 13:04 Temperature 36.9 C Temperature Source Oral Pulse Rate 83 83 88 Respiratory Rate 16 15 20 H Respiratory Effort Respiratory Depth Respiratory Pattern Normal Blood Pressure 129/77 H 148/96 H Blood Pressure Mean 90 113 Pulse Ox 94 96 Oxygen Delivery Method Nasal Cannula Nasal Cannula Oxygen Flow Rate (L/min) 4 4 05/01/24 15:00 Temperature Temperature Source Pulse Rate 73 Respiratory Rate 16 Respiratory Effort Respiratory Depth Respiratory Pattern Blood Pressure 144/84 H Blood Pressure Mean 104 Pulse Ox 94 Oxygen Delivery Method Nasal Cannula Oxygen Flow Rate (L/min) 4 Weight Weight: 66.3 kg Body Mass Index (BMI) 28.5 Physical Exam Const alert and no apparent distress Constitutional Narrative: Pleasant but odd affect. Follows commands. Appropriate otherwise. HEENT normocephalic and head/scalp atraumatic Neck no lymphadenopathy and no JVD Resp Resp Narrative: Diminished throughout. Faint bibasilar crackles. Cardio regular rate, regular rhythm, S1 normal heart sound and S2 normal heart sound GI normal to inspection, nondistended, normoactive bowel sounds, soft to palpation, non-tender and non-distended Extremity normal to inspection and no clubbing, cyanosis or edema Skin Skin Narrative: No rashes or lesions. Numerous faded tattoos. Neuro moves all extremities and no focal motor deficits Sensorium / Orientation: awake and alert Psych affect normal Results Lab / Micro Data Attestation: I reviewed the patient's lab results. 05/01/24 11:18 05/01/24 11:18 Labs: Laboratory Results - last 24 hr 05/01/24 11:18: WBC 11.5 H, RBC 4.13 L, Hgb 12.4, Hct 38.0, MCV 92.0, MCH 30.0, MCHC 32.6, RDW Std Deviation 46.6 H, RDW Coeff of Alejandra 13.8, Plt Count 287, MPV 9.8, Immature Gran % (Auto) 0.400, Neut % (Auto) 67.6, Lymph % (Auto) 23.0, Ward % (Auto) 4.9, Eos % (Auto) 3.6, Baso % (Auto) 0.5, Absolute Neuts (auto) 7.8 H, Absolute Lymphs (auto) 2.65, Nucleated RBC % 0, Sodium 140, Potassium 3.7, Chloride Direct 104, Carbon Dioxide 25.5, Anion Gap 10, BUN 25 H, Creatinine 1.10, Estim Creat Clear Calc 44.48, Est GFR (MDRD) Non-Af 56 L, BUN/Creatinine Ratio 23.0 H, Glucose 149 H, Calcium 8.8, Troponin T High Sens 14, NT pro BNP II 712 05/01/24 13:28: Troponin T Hi Sens 2 Hr 29 H, Troponin T Hi Sens 2Hr Delta 16 EKG Initial EKG: Attestation: I personally reviewed and interpreted this EKG as follows: Prior EKG tracings: available for review EKG Rhythm Intrepretation: Sinus Rhythm Imaging Radiology Impression Chest X-Ray 05/01/24 12:00 IMPRESSION: Atelectasis and/or infiltrate in the lower lobes. Mild cardiac enlargement. Exaggerated kyphosis. Reading Location: [place] [id number] Assessment & Plan Assessment/Plan (1) COPD exacerbation: PLAN: At least partially due to the fact that she has run out of oxygen recently. Continue with bronchodilators but monitor closely as patient stated that made her very anxious when she received in the emergency room. Unclear if she had a true reaction to the bronchodilators but certainly worth monitoring. Additionally we will continue with methylprednisolone. Wean oxygen as tolerated. Patient is normally home O2 dependent up until recently where she ran out of her oxygen. Case management to assist on reobtaining oxygen when she is medically ready for discharge (2) Pneumonia: PLAN: Suspected pneumococcal patient received ceftriaxone and azithromycin in the emergency room. Will continue on the floor. Check sputum culture, check urinary antigens for Streptococcus and Legionella. Mucinex. Pulmonary toilet. Frankly I am not sure if she does have a pneumonia but she does certainly have changes but these may be more chronic. If the infectious workup comes back negative possible consideration for discontinuing antibiotics. (3) Migraines: PLAN: Acute on chronic. Patient received ketorolac in the emergency room and will have that available on the floor. Continue with sumatriptan hand. Avoid narcotics. No need for additional imaging at this time. PLAN: Plan Diagnosis of CHF by the ED physician. I do not feel the patient has CHF given fact that she has no JVD, no lower extremity edema and normal BNP. Debility: PT OT evaluate and treat. Case management to assist. Marijuana use: Patient stated that she smokes marijuana. I advised her with her chronic lung disease to look for alternatives to smoking marijuana such as edibles. States that she has a medical card for marijuana. Told her this really not necessary nowadays in [place]. Depression: Continue with home medications Hypertension: Continue with lisinopril and furosemide VTE prophylaxis with enoxaparin CODE STATUS: Addressed with the patient patient be full CODE STATUS. Charges/Coding Visit Charges Inpatient E&M: 84482 Init Hosp L3
[2024-05-01] MEDS: Azithromycin 500 MG in 0.9% Normal Saline (250mL Bag) 250 ML 255 MG IV (17:11)
[2024-05-01 19:46] LABS: TROPONIN VARIANCE 4 HR 22; Troponin T High Sens 4 HR 36 ng/L (<=14)
[2024-05-01] MEDS: Rizatriptan Benzoate 10 MG Tablet PO (20:20)
[2024-05-01] MEDS: Atorvastatin Calcium 40 MG Tablet PO (20:21)
[2024-05-01] MEDS: Amitriptyline 100 MG Tablet PO (20:21)
[2024-05-01] MEDS: busPIRone 5 MG Tablet PO (20:21)
[2024-05-01] MEDS: guaiFENesin 1,200 MG Tablet 1200 MG PO (20:22)
[2024-05-01] MEDS: Furosemide 40 MG Tablet PO (20:22)
[2024-05-01] MEDS: Pregabalin 25 MG Capsule PO (20:39)
[2024-05-01] MEDS: 0.9% Saline Lock 10 ML Syringe IV (20:39)
[2024-05-01] MEDS: hydrOXYzine PAM 25 MG Capsule 50 MG PO (21:57)
[2024-05-01] MEDS: tiZANidine HCl 2 MG Tablet 4 MG PO (21:57)
[2024-05-02] VITALS (7 sets, daily range): BP systolic 126–152; BP diastolic 75–93; PULSE 75–90; RESP 14–18; TEMP 36.4–36.9; O2SAT 94–100
[2024-05-02] MEDS: busPIRone 5 MG Tablet PO ×3 (06:17→20:55)
[2024-05-02 06:26] LABS: Absolute Lymphocyte Count 1.17 X10^3/uL (0.83-4.51); Absolute Neutrophil Count 9.4 X10^3/uL (2.0-7.7); Basophil# 0.01 X10^3/uL; Basophil% 0.1 % (0-1); Hematocrit 32.5 % (37-47); Hemoglobin 10.8 g/dL (12.0-15.0); Lymphocyte # 1.17 X10^3/ul (0.83-4.51); Lymphocyte % 10.4 % (19-41); Mean Corp Hgb Conc 33.2 g/dL (32-36); Mean Corpuscular Hgb 29.7 pg (27.0-32.0); Mean Corpuscular Volume 89.3 fL (81-99); Mean Platelet Vol. 10.2 fl (6.2-12.0); Monocyte# 0.62 X10^3/uL; Monocyte% 5.5 % (0-10); NRBC Flagged by Analyzer 0 % (0-5); Neutrophil # 9.36 X10^3/uL (2.7-7.7); Neutrophil % 83.1 % (47-70); Platelet Count 285 K/mm3 (150-450); RBC Distribution Width CV 13.9 % (11.6-14.6); Red Blood Count 3.64 M/mm3 (4.2-5.4); White Blood Count 11.3 K/mm3 (4.4-11.0)
[2024-05-02 07:05] LABS: Anion Gap 14 (5-15); BUN 27 mg/dL (4-19); BUN/Creat Ratio 27.7 RATIO (10-20); Calcium 9.1 mg/dL (7.6-11.0); Carbon Dioxide 23.1 mmol/L (22.0-29.0); Chloride 106 mmol/L (96-108); Creatinine, Serum 0.98 mg/dL (0.70-1.20); EST Glomerular Filtration Rate 65 (>60); Estimated Creatinine Clearance 49.89 ml/min; Glucose 137 mg/dL (70-99); Potassium 4.4 mmol/L (3.3-5.1); Sodium Level 144 mmol/L (133-145)
[2024-05-02] MEDS: Ipratropium/Albuterol Sulfate 3 ML AMPUL.NEB INHALATION ×2 (07:21→15:46)
[2024-05-02] MEDS: Lisinopril 40 MG Tablet PO (09:10)
[2024-05-02] MEDS: Fluticasone 0.05% 1 SPRAY NASAL.SRY 2 SPRAY NASAL (09:10)
[2024-05-02] MEDS: Furosemide 40 MG Tablet PO ×2 (09:11→17:26)
[2024-05-02] MEDS: Pantoprazole Sodium 40 MG Tablet PO (09:11)
[2024-05-02] MEDS: guaiFENesin 1,200 MG Tablet 1200 MG PO (09:11)
[2024-05-02] MEDS: Acetaminophen 500 MG Tablet 1000 MG PO ×2 (09:11→17:26)
[2024-05-02] MEDS: Escitalopram Oxalate 20 MG Tablet PO (09:11)
[2024-05-02] MEDS: Potassium Chloride Oral Tablet 20 MEQ PO (09:11)
[2024-05-02] MEDS: Pregabalin 25 MG Capsule PO ×2 (09:18→20:56)
[2024-05-02] MEDS: hydrOXYzine PAM 25 MG Capsule 50 MG PO ×3 (09:18→23:11)
--- NOTE | 2024-05-02 09:18 | PN.HOSP_ITS ---
Reason for Visit Reason for Visit: Diagnoses Migraine, unspecified, not intractable, without status migrainosus (05/01/24) Pneumonia, unspecified organism (05/01/24) Chronic obstructive pulmonary disease with (acute) exacerbation (05/01/24) Subjective Subjective Overall feeling better, feels her oxygen requirement is now back to baseline Notes that she ran out of oxygen back in November or has not been using it since then. Was on 6 L at baseline while walking and 2 L at rest at home. At this time she is at her baseline oxygen requirement. Objective Data Objective Data Vital Signs: Vital Signs Temp Pulse Resp BP Pulse Ox O2 Del Method O2 Flow Rate 98.4 F 90 18 140/84 H 94 Nasal Cannula 2 05/02/24 09:01 05/02/24 09:01 05/02/24 09:01 05/02/24 09:01 05/02/24 09:01 05/02/24 09:01 05/02/24 09:01 Oxygen Flow Rate (L/min) 2 Oxygen Delivery Method Nasal Cannula Weight: 145 lb 15.136 oz Body Mass Index (BMI) 31.6 Intake & Output: Intake and Output for Last 24 Hours 04/30/24 05/01/24 05/02/24 23:59 23:59 23:59 Intake Total 845 / 845 120 / 120 Output Total 350 / 350 Balance 495 / 495 120 / 120 Lab / Micro Data 05/02/24 05:55 05/02/24 05:55 Labs: Laboratory Results - last 24 hr 05/01/24 11:18: WBC 11.5 H, RBC 4.13 L, Hgb 12.4, Hct 38.0, MCV 92.0, MCH 30.0, MCHC 32.6, RDW Std Deviation 46.6 H, RDW Coeff of Alejandra 13.8, Plt Count 287, MPV 9.8, Immature Gran % (Auto) 0.400, Neut % (Auto) 67.6, Lymph % (Auto) 23.0, Harney % (Auto) 4.9, Eos % (Auto) 3.6, Baso % (Auto) 0.5, Absolute Neuts (auto) 7.8 H, Absolute Lymphs (auto) 2.65, Nucleated RBC % 0, Sodium 140, Potassium 3.7, Chloride Direct 104, Carbon Dioxide 25.5, Anion Gap 10, BUN 25 H, Creatinine 1.10, Estim Creat Clear Calc 44.48, Est GFR (MDRD) Non-Af 56 L, BUN/Creatinine Ratio 23.0 H, Glucose 149 H, Calcium 8.8, Troponin T High Sens 14, NT pro BNP II 712 05/01/24 13:28: Troponin T Hi Sens 2 Hr 29 H, Troponin T Hi Sens 2Hr Delta 16 05/01/24 19:15: Troponin T Hi Sens 4Hr 36 H, Troponin T Hi Sens 4Hr Delta 22 05/02/24 05:55: WBC 11.3 H, RBC 3.64 L, Hgb 10.8 L, Hct 32.5 L, MCV 89.3, MCH 29.7, MCHC 33.2, RDW Std Deviation 45.0 H, RDW Coeff of Alejandra 13.9, Plt Count 285, MPV 10.2, Immature Gran % (Auto) 0.900, Neut % (Auto) 83.1 H, Lymph % (Auto) 10.4 L, Harney % (Auto) 5.5, Eos % (Auto) 0.0, Baso % (Auto) 0.1, Absolute Neuts (auto) 9.4 H, Absolute Lymphs (auto) 1.17, Nucleated RBC % 0, Sodium 144, Potassium 4.4, Chloride Direct 106, Carbon Dioxide 23.1, Anion Gap 14, BUN 27 H, Creatinine 0.98, Estim Creat Clear Calc 49.89, Est GFR (MDRD) Non-Af 65, B UN/Creatinine Ratio 27.7 H, Glucose 137 H, Calcium 9.1 Micro: Microbiology 05/01/24 18:55 Mucosa - Nose SARS-CoV-2, Influenza & RSV (PCR) - Final 05/01/24 18:55 Urine, Random Legionella Antigen - Final 05/01/24 18:55 Urine, Random Streptococcus pneumoniae Antigen (M - Final Radiography Diagnostic Testing: Radiology Impression Chest X-Ray 05/01/24 12:00 IMPRESSION: Atelectasis and/or infiltrate in the lower lobes. Mild cardiac enlargement. Exaggerated kyphosis. Reading Location: [place] [id number] Physical Exam Const alert, oriented x3 and no apparent distress HEENT head/scalp atraumatic Eyes PERRL Resp normal respiratory effort Resp Narrative: Bilateral lungs clear, no adventitious sounds Cardio regular rate and regular rhythm GI normal to inspection, nondistended, normoactive bowel sounds Extremity normal to inspection Neuro oriented x3, CN's II-XII intact bilaterally and moves all extremities Assessment & Plan Assessment/Plan (1) COPD exacerbation: PLAN: Plan 63-year-old female with a history of COPD presented to the hospital with concerns regarding worsening shortness of breath in the setting of running out of her oxygen, with imaging findings of bilateral pulmonary infiltrates concerning for PNA, she is at present receiving treatment on the lines of acute exacerbation of COPD with steroids as well as antibiotics. Presently her oxygen requirement is at her baseline with 2 L of nasal cannula. #Acute on chronic respiratory failure #COPD exacerbation #Suspected pneumonia -Continue oxygen via nasal cannula 2 mL/minute -PT OT evaluation regarding suitability for discharge -Case management evaluation for home oxygen therapy -Continue steroids for 1 more day given the improvement, switch to oral azithromycin -Discontinue ceftriaxone #Migraines -No concerns at this time -Continue with home sumatriptan -Start Tylenol as needed #CHF -Very low concerns at this time -Will can follow-up outpatient if needed for the same #Marijuana use -Continues to smoke, not motivated at this time to discuss quitting options #VTE prophylaxis -Continue enoxaparin #Hypertension: Continue home medications #Bipolar disorder -Continue home medications Charges/Coding Visit Charges Inpatient E&M: 87929 Init Hosp L2
[2024-05-02] MEDS: Enoxaparin 40 MG/0.4 ML Syringe SC (09:19)
[2024-05-02] MEDS: Ceftriaxone 2 GM in 0.9% Normal Saline (50mL MB+) 50 ML IV (09:54)
[2024-05-02] MEDS: Azithromycin 500 MG in 0.9% Normal Saline (250mL Bag) 250 ML 255 MG IV (10:33)
[2024-05-02] MEDS: 0.9% Normal Saline (100mL Bag) 100 ML 15 ML IV (10:34)
[2024-05-02] MEDS: Rizatriptan Benzoate 10 MG Tablet PO (10:36)
[2024-05-02] MEDS: 0.9% Saline Lock 10 ML Syringe IV ×3 (14:27→23:11)
[2024-05-02] MEDS: tiZANidine HCl 2 MG Tablet 4 MG PO ×2 (14:28→20:56)
--- NOTE | 2024-05-02 17:00 | CASEMGMT ---
RN YAHAIRA PUBLIC INFORMATION SPECIALIST YAHAIRA?to room to meet with patient for initial transition planning/care coordination assessment. RN YAHAIRA?introduced self and role at [facility]. Pt voices understanding and consents to assessment?at this time. Pt resting in bed in no distress at this time. Pt is A/O at this time and answers all questions appropriately. Care providers, pharmacy, and demographics verified/updated at this time. PCP: ASSESSMENT SPECIALIST Amalia Older Specialists: Dr Molina-ortho, Dr Calhoun-ortho, Dr Obrien-prosthetic assistant in [place]/[facility], Dr Taylor-central sterile technician in [place]/[facility], Dr Radha Willams-pulm, ASSESSMENT SPECIALIST Thelma Lawson-/CC,[place] Preferred Pharmacy: [facility] Insurance: [facility]. Pt has had ARI in the past. does not currently have ARI, but is in the process of applying again. Prescription Benefit: Yes HCPOA: Pt has HCPOA, who is her sig other, Trey LNOK: Trey, sig other/HCPOA Living Arrangements: Live w/Trey in mobile home w/3 steps to enter. Independent w/ADL's and manages her own medications. Pt states she does most of the laundry. Trey does grocery shopping. Transportation:?Trey DME: has the following DME: WW, shower chair, cane, pulse ox O2: Pt has O2 through [facility]. Baseline O2 is 2 L/M @ rest and 5 L/M w/exertion. She has a concentrator @ home. She has several empty portable O2 tanks @ her home and she would like to get replacements from [facility]. She is willing to have the empty ones returned to [facility]. She voices concern re: cost to have these replaced. RICARDO SYED informed her [employer] [employer] does have a Reduced Payment Application. She voices appreciation to know this. Per ED Marisol VILLAGOMEZ, note, Ramakrishna from [employer] states pt can be provided w/portable O2 tank and regulator to go home on. Also noted Ramakrishna states pt will need to sign an ABN. RICARDO SYED does not have this document available for pt to sign at this time. E-mail sent to Ramakrishna @ [employer] [employer] for him for him to f/u on the above on Saturday. It was also noted pt mentioned she needs NC tubing. Nursing made aware to send pt's NC tubing home w/her @ discharge. Pt states no need for further DME at this time. HHC/SNF: No hx of either. Pt declines needing HHC or OP therapy @ discharge. Palliative: Pt qualifies for Palliative referral. Discussed Palliative w/pt and she is interested in a referral. Dr Aldana made aware, order received, and referral sent to [facility] via e-mail. Pt wishes to return home and states has no concerns with going home at time of discharge. Pt voices no further concerns/needs at this time. PLAN: Home w/significant other support. Home O2 amb testing to be completed @ discharge. New script to be faxed to [facility] if pt qualifies for increase in O2. Green sheet on chart w/instructions. Yasmin PALACION RN CM
[2024-05-02] MEDS: Amitriptyline 100 MG Tablet PO (20:55)
[2024-05-02] MEDS: Atorvastatin Calcium 40 MG Tablet PO (20:55)
[2024-05-02] MEDS: Ketorolac 15 MG/ML Vial IV (23:11)
[2024-05-03 02:15] VITALS: BP 130/74; PULSE 74; RESP 18; TEMP 36.7; O2SAT 98
[2024-05-03 05:09] VITALS: O2SAT 86; O2SAT 88; O2SAT 94; O2SAT 95
[2024-05-03] MEDS: busPIRone 5 MG Tablet PO ×2 (05:22→14:39)
[2024-05-03] MEDS: 0.9% Saline Lock 10 ML Syringe IV ×3 (05:22→14:39)
[2024-05-03] MEDS: Lisinopril 40 MG Tablet PO (06:43)
[2024-05-03 06:44] VITALS: BP 168/95; PULSE 70; RESP 18; TEMP 36.6; O2SAT 98
[2024-05-03] MEDS: Acetaminophen 500 MG Tablet 1000 MG PO (07:54)
[2024-05-03] MEDS: Potassium Chloride Oral Tablet 20 MEQ PO (07:54)
[2024-05-03] MEDS: Escitalopram Oxalate 20 MG Tablet PO (07:54)
[2024-05-03] MEDS: Furosemide 40 MG Tablet PO (07:54)
[2024-05-03] MEDS: Pantoprazole Sodium 40 MG Tablet PO (07:54)
[2024-05-03] MEDS: Ceftriaxone 2 GM in 0.9% Normal Saline (50mL MB+) 50 ML IV (09:59)
[2024-05-03] MEDS: Fluticasone 0.05% 1 SPRAY NASAL.SRY 2 SPRAY NASAL (10:01)
[2024-05-03] MEDS: Pregabalin 25 MG Capsule PO (10:08)
[2024-05-03] MEDS: Enoxaparin 40 MG/0.4 ML Syringe SC (10:08)
[2024-05-03] MEDS: hydrOXYzine PAM 25 MG Capsule 50 MG PO (10:08)
[2024-05-03] MEDS: Azithromycin 500 MG in 0.9% Normal Saline (250mL Bag) 250 ML 255 MG IV (11:06)
[2024-05-03 14:33] VITALS: BP 124/90; PULSE 79; RESP 16; TEMP 37.1; O2SAT 99
--- NOTE | 2024-05-03 14:59 | PCM.DC.SUM ---
Providers Date of Admission: 05/01/24 Date of Discharge: 05/03/24 Primary Care Physician: DALI FRAGOSO [facility]CHIVES SPECIALISTfAshinC Reason For Visit: COPD EXACERBATION Diagnosis Discharge Diagnosis (1) COPD exacerbation: Status: Chronic Code(s): J44.1 - Chronic obstructive pulmonary disease with (acute) exacerbation Plan 63-year-old female with a history of COPD presented to the hospital with concerns regarding worsening shortness of breath in the setting of running out of her oxygen, with imaging findings of bilateral pulmonary infiltrates concerning for PNA, she is at present receiving treatment on the lines of acute exacerbation of COPD with steroids as well as antibiotics. Presently her oxygen requirement is at her baseline with 2 L of nasal cannula. #Acute on chronic respiratory failure #COPD exacerbation #Suspected pneumonia -Continue oxygen via nasal cannula 2 mL/minute [home dose] -Suitable for home discharge, complete 5 days of steroid therapy with prednisone 40 mg for 2 days after discharge -Case management evaluation for home oxygen therapy, will be available for her at the time of discharge -Switch to oral azithromycin -Discontinue ceftriaxone #Migraines -No concerns at this time -Continue with home sumatriptan -Start Tylenol as needed #CHF -Very low concerns at this time -Will can follow-up outpatient if needed for the same #Marijuana use -Continues to smoke, not motivated at this time to discuss quitting options #VTE prophylaxis -Continue enoxaparin #Hypertension: Continue home medications #Bipolar disorder -Continue home medications Medications at Discharge Home Medications albuterol sulfate 90 mcg/actuation aerosol inhaler (ProAir HFA) 2 puff inhalation Q4H PRN PRN Sob &/Or Wheezing 07/26/14 nitroglycerin 0.4 mg sublingual tablet 0.4 mg sublingual PRN PRN CHEST PAIN 06/04/17 amitriptyline 100 mg tablet 150 mg PO QHS depresssion 10/10/22 meloxicam 7.5 mg tablet 15 mg PO DAILY pain 10/10/22 sumatriptan succinate 50 mg tablet 50 mg PO PRN PRN migraine headache 10/10/22 ondansetron 4 mg disintegrating tablet 4 mg PO Q8H PRN PRN Nausea #14 tabs 11/14/22 atorvastatin 40 mg tablet 40 mg PO QHS Cholesterol 05/11/23 buspirone 5 mg tablet 10 mg PO TID Anxiety 05/11/23 dexlansoprazole 60 mg capsule,biphase delayed release 60 mg PO DAILY GERD 05/11/23 escitalopram oxalate 20 mg tablet 20 mg PO DAILY depression 05/11/23 fluticasone propionate 50 mcg/actuation nasal spray,suspension 2 spray intranasal DAILY allergies 05/11/23 hydroxyzine HCl 50 mg tablet 50 mg PO TID PRN Anxiety 05/11/23 pregabalin 25 mg capsule 150 mg PO BID Nerve pain 05/11/23 tizanidine 4 mg tablet 4 mg PO Q8H PRN PRN muscle spasm 05/11/23 acetaminophen 325 mg tablet 1,000 mg (3.0769 x 325 mg) PO Q8H PRN PRN fever/pain 1-10 #0 tabs 05/20/23 lisinopril 40 mg tablet 40 mg PO DAILY blood pressure 06/04/23 furosemide 40 mg tablet 40 mg PO BIDCM water pill #120 tabs 06/06/23 guaifenesin 1,200 mg tablet, extended release 12 hr (Mucus Relief ER) 1,200 mg PO BID mucus #20 tabs 06/06/23 potassium chloride 20 mEq tablet,extended release(part/cryst) 20 meq PO DAILYCM diuretic use #30 tabs 06/06/23 trazodone 50 mg tablet 50 mg PO QHS insomnia 05/01/24 azithromycin 500 mg tablet 500 mg PO DAILY 2 days #2 tabs 05/03/24 prednisone 20 mg tablet 40 mg (2 x 20 mg) PO DAILY #4 tabs 05/03/24 Hospital Course Operations None Procedures None Summary of Care Provided Hospital Course: Patient is admitted for worsening shortness of breath in the setting of running out of her oxygen. She was managed on the lines of acute exacerbation of COPD, and has had significant improvement in her shortness of breath. At the time of discharge she is requiring only 2 L of oxygen which is her baseline dose. She is encouraged to follow-up outpatient. Physical Exam Const alert and oriented x3 General Appearance: cooperative and comfortable HEENT normocephalic and head/scalp atraumatic Eyes PERRL Neck no lymphadenopathy Resp normal respiratory effort Resp Narrative: No adventitious sounds Cardio regular rate and regular rhythm GI normal to inspection, nondistended, normoactive bowel sounds Extremity normal to inspection Skin no rashes or lesions noted Neuro oriented x3 and moves all extremities Weight / BMI Weight Weight: 145 lb 15.136 oz Body Mass Index (BMI) 31.6 ABG / Lab / Microbiology Data 05/02/24 05:55 05/02/24 05:55 Microbiology: Microbiology 05/02/24 21:05 Sputum, Expectorated/Coughed Gram Stain - Final 05/01/24 18:55 Mucosa - Nose SARS-CoV-2, Influenza & RSV (PCR) - Final 05/01/24 18:55 Urine, Random Legionella Antigen - Final 05/01/24 18:55 Urine, Random Streptococcus pneumoniae Antigen (M - Final D/C Instructions Discharge Diet: No restrictions Discharge Activity: Return to Normal Activity DC O2, CPAP, BIPAP Needs Home O2 Discharge instructions: Yes Type of respiratory needs?: Oxygen Oxygen frequency: Continuous Continuous oxygen liters per minute: 2 and With Ambulation Oxygen liters per minute during Ambulation: 5 DC home with Oxygen: Yes Home O2 MD Review: I have reviewed the oxygen testing, and the patient qualifies for home oxygen equipment and portability. The patient is mobile in the home and the community. Additional Instructions: Complete treatment for COPD exacerbation with 2 days of azithromycin and 2 more days of prednisone daily Meaningful Use Info Meaningful Use Meaningful Use Diagnoses (Choose all that apply): None applicable Ischemic Stroke Statin Dosing Therapy Reference: STATIN DOSE THERAPY REFERENCE: * Patients > 75 years receive moderate or high dose statin therapy. * Patients 75 years or YOUNGER should receive HIGH intensity statin dose unless contraindicated. You will be required to document reason for non-treatment if statin daily dose does not meet guidelines. HIGH DOSE STATIN THERAPY DAILY Atorvastatin > than or = to 40 mg Rosuvastatin > than or = to 20 mg Amlodipine + Atorvastatin > than or = to 2.5/40 mg Ezetimibe + Simvastatin 10/80 mg Simvastatin 80mg Discharge Plan Admission Admit Date/Time: 05/01/24 16:42 Primary Reason for Your Visit: COPD exacerbation Attending Provider: Himanshu Aldana Primary Care Provider: DALI FRAGOSO Consulting Providers: Trey Joe Discharge Orders/Prescriptions Prescriptions: New prednisone 20 mg tablet 40 mg PO DAILY Qty: 4 0RF azithromycin 500 mg tablet 500 mg PO DAILY 2 Days Qty: 2 0RF Continued albuterol sulfate [ProAir HFA] 1 PUFF inhaler 2 puff inhalation Q4H PRN PRN (Reason: Sob &/Or Wheezing) nitroglycerin 0.4 MG tablet, sublingual 0.4 mg sublingual PRN PRN (Reason: CHEST PAIN) ondansetron 4 mg tablet,disintegrating 4 mg PO Q8H PRN PRN (Reason: Nausea) Qty: 14 0RF amitriptyline 100 mg tablet 150 mg PO QHS sumatriptan succinate 50 mg tablet 50 mg PO PRN PRN (Reason: migraine headache) meloxicam 7.5 mg tablet 15 mg PO DAILY Patient Comments: TAKE ONE TABLET BY MOUTH DAILY AT 9AM escitalopram oxalate 20 mg tablet 20 mg PO DAILY fluticasone propionate 50 mcg/actuation spray,suspension 2 spray INTRANASAL DAILY tizanidine 4 mg tablet 4 mg PO Q8H PRN PRN (Reason: muscle spasm) atorvastatin 40 mg tablet 40 mg PO QHS buspirone 5 mg tablet 10 mg PO TID dexlansoprazole 60 mg capsule,biphase delayed releas 60 mg PO DAILY hydroxyzine HCl 50 mg tablet 50 mg PO TID PRN (Reason: Anxiety) pregabalin 25 mg capsule 150 mg PO BID acetaminophen 325 mg Tablet 1,000 mg PO Q8H PRN PRN (Reason: fever/pain 1-10) Qty: 0 0RF lisinopril 40 mg tablet 40 mg PO DAILY potassium chloride 20 mEq Tablet,Er Particles/Crystals 20 meq PO DAILYCM Qty: 30 0RF guaifenesin [Mucus Relief ER] 1,200 mg Tablet Extended Release 12hr 1,200 mg PO BID Qty: 20 0RF furosemide 40 mg tablet 40 mg PO BIDCM Qty: 120 0RF Patient Comments: pt states she had some, but does online rx; unclear last dose trazodone 50 mg tablet 50 mg PO QHS Referrals / Follow Up: DALI FRAGOSO, [facility]CHIVES SPECIALIST-C [Primary Care Provider] - Disposition Disposition (needs filled in before D/C Order can be placed): Home, Self Care
== END 2024-05-03 15:57 | disposition home or self-care (01) | DRG 194 ==
LOC: ED 15:58 → PCU 16:57
PROVIDERS: Emergency Provider Emergency Medicine; PCP Nurse Practitioner; Referring Provider Internal Medicine; Visit Provider Internal Medicine
DX: J13 Pneumonia due to Streptococcus pneumoniae (principal); J44.1 Chronic obstructive pulmonary disease with (acute) exacerbation; J44.0 Chronic obstructive pulmonary disease with (acute) lower respiratory infection; I11.0 Hypertensive heart disease with heart failure; I50.9 Heart failure, unspecified; F31.9 Bipolar disorder, unspecified; K21.9 Gastro-esophageal reflux disease without esophagitis; F12.90 Cannabis use, unspecified, uncomplicated; G43.709 Chronic migraine without aura, not intractable, without status migrainosus; Z99.81 Dependence on supplemental oxygen; R53.81 Other malaise; Z79.01 Long term (current) use of anticoagulants; Z79.899 Other long term (current) drug therapy; Z87.891 Personal history of nicotine dependence
CPT/HCPCS: 36415; 71046; 80048; 83880; 84484; 85025; 87070; 87077; 87186; 87205; 87449; 87631; 93005; 94640; 94667; 94668; 97162; 97166; 97802; 99285; A4216; J0696; J1938

== ENCOUNTER 2024-07-26 13:28 | Inpatient (IN) | payer MEDICARE, MEDICAID, SELFPAY ==
[2024-07-26 13:28] VITALS: BP 136/108; PULSE 90; RESP 14; TEMP 36.1; O2SAT 100
[2024-07-26 15:28] VITALS: BP 136/81; PULSE 81; RESP 18; O2SAT 98
--- NOTE | 2024-07-26 15:50 | EDS_ITS ---
HPI <GARY Rojas - Last Filed: 07/26/24 21:12> HPI - GI History of Present Illness Chief Complaint: Abd Pain Narrative Narrative: Patient presenting today due to generalized abdominal pain, nausea, and vomiting. She reports that the pain started 2 days ago and the nausea and vomiting started last night. She has a history of umbilical hernia repair. She denies history of alcohol use, ascites, or liver disease. Her last bowel movement was 2 days ago, she denies stool changes. She additionally reports dysuria and has concerns for a UTI. She denies fevers, chills, hematemesis, and hematuria. She has a PMH of COPD on chronic supplemental O2, CAD, bipolar disorder, and HTN. PFSH <GARY Rojas - Last Filed: 07/26/24 21:12> PFS Medical History (Updated 07/29/24 @ 15:[address] Alisa Guaman, DO) CHF (congestive heart failure) Anxiety Depression Kidney disease GERD (gastroesophageal reflux disease) Former smoker On home oxygen therapy Irregular heart beat Myocardial infarct Migraines Fibromyalgia NSTEMI (non-ST elevated myocardial infarction) Hypertension Rheumatoid arthritis Bipolar 1 disorder COPD (chronic obstructive pulmonary disease) COPD (chronic obstructive pulmonary disease) Home Medications ?Medication ?Instructions ?Recorded ?Last Taken ?Type albuterol sulfate 90 mcg/actuation 2 puff inhalation Q 4H PRN PRN Sob 07/26/14 06/06/17 History aerosol inhaler (ProAir HFA) &/Or Wheezing nitroglycerin 0.4 mg sublingual 0.4 mg sublingual PRN PRN CHEST 06/04/17 Unknown History tablet PAIN amitriptyline 100 mg tablet 150 mg PO QHS depresssion 10/10/22 04/30/24 History meloxicam 7.5 mg tablet 15 mg PO DAILY pain 10/10/22 04/30/24 History sumatriptan succinate 50 mg tablet 50 mg PO PRN PRN mi graine headache 10/10/22 04/30/24 History ondansetron 4 mg disintegrating 4 mg PO Q8H PRN PRN Na usea #14 tabs 11/14/22 Unknown Rx tablet atorvastatin 40 mg tablet 40 mg PO QHS Cholesterol 11/2504/30/24 History buspirone 5 mg tablet 10 mg PO TID Anxiety 4 04/30/24 History dexlansoprazole 60 mg 60 mg PO DAILY GERD 05/11/23 Unknown History capsule,biphase delayed release escitalopram oxalate 20 mg tablet 20 mg PO DAILY depre ssion 05/11/23 04/30/24 History hydroxyzine HCl 50 mg tablet 50 mg PO TID PRN Anxiety 05/11/23 04/30/24 History pregabalin 25 mg capsule 150 mg PO BID Nerve pain 11/2504/30/24 History tizanidine 4 mg tablet 4 mg PO Q8H PRN PRN muscle s pasm 05/11/23 04/30/24 History acetaminophen 325 mg tablet 1,000 mg (3.0769 x 325 mg) PO Q8H 05/20/23 Unknown Rx PRN PRN fever/pain 1-10 #0 tabs lisinopril 40 mg tablet 40 mg PO DAILY blood pressur e 06/04/23 04/30/24 History potassium chloride 20 mEq 20 meq PO DAILYCM diuretic u se #30 06/06/23 04/30/24 Rx tablet,extended release(part/cryst) tabs trazodone 50 mg tablet 50 mg PO QHS insomnia Unknown History albuterol sulfate 2.5 mg/3 mL 2.5 mg inhalation Q4H DE N PRN 07/26/24 Unknown History (0.083 %) solution for nebulization wheezing buspirone 10 mg tablet 10 mg PO TID mental health 0 07/26/24 Unknown History escitalopram oxalate 20 mg tablet 20 mg PO DAILY depre ssion 07/26/24 Unknown History (Lexapro) fluticasone 250 mcg-salmeterol 50 1 ea inhalation BID copd 07/26/24 Unknown History mcg/dose blistr powdr for inhalation furosemide 40 mg tablet 40 mg PO DAILY water pill Unknown History loperamide 2 mg capsule 2 mg PO TID PRN PRN diarrhea 07/26/24 Unknown History Allergy/AdvReac Type Severity Reaction Status Date / Time methotrexate Allergy Other Verified 07/26/24 13:29 nadolol Allergy Unknown Verified 07/26/24 13:29 prochlorperazine Allergy PT UNABLE Verified 07/26/24 13:29 TO RESPOND-NEEDS F/U baclofen AdvReac Other Verified 07/26/24 13:29 lorazepam (From Ativan) AdvReac Nausea Verified 07/26/24 13:29 propranolol AdvReac Other Verified 07/26/24 13:29 Family History Other COPD (chronic obstructive pulmonary disease) Surgical History (Updated 07/26/24 @ 20:28 by Moraima Jonas) H/O umbilical hernia repair Social History Smoking Status: Former smoker substance use type: marijuana ROS <GARY Rojas - Last Filed: 07/26/24 21:12> ROS ED Constitutional Constitutional ED: Denies chills or fever(s) Cardiovascular Cardiovascular: Denies chest pain Respiratory/Chest Respiratory/Chest: Denies dyspnea Gastrointestinal Gastrointestinal: Reports abdominal pain, constipation, nausea and vomiting; Denies diarrhea, hematochezia or melena Genitourinary Genitourinary ED: Reports dysuria; Denies hematuria Musculoskeletal Musculoskeletal: Denies back pain Integumentary Denies rash Neurologic Neurologic: Denies weakness EXAM <GARY Rojas - Last Filed: 07/26/24 21:12> Physical Exam Const Vital Signs: 07/26/24 13:28 07/26/24 15:28 Temperature 96.9 F L Temperature Source Temporal Pulse Rate 90 81 Respiratory Rate 14 18 Blood Pressure 136/108 H 136/81 H Blood Pressure Mean 117 99 Pulse Ox 100 98 Oxygen Delivery Method Nasal Cannula Nasal Cannula Oxygen Flow Rate (L/min) 2 2 Positive well nourished, well developed and no apparent distress General Appearance ED: well developed HEENT Reports normocephalic and head/scalp atraumatic Mouth ED: Yes moist mucous membranes normal Eyes PERRL and EOMs intact bilaterally Neck full ROM and supple Chest Wall inspection of chest normal Resp normal respiratory effort and clear to auscultation bilaterally Cardio regular rate and regular rhythm GI soft to palpation and no masses GI Narrative: Abdomen is distended, Generalized tenderness to palpation, no rigidity or guarding. Back/Spine normal ROM and normal to inspection Extremity normal to inspection and full ROM Neuro oriented x3, CN's II-XII intact bilaterally, moves all extremities, no focal motor deficits and no sensory deficits noted Sensorium / Orientation: awake and alert Psych mental status grossly normal and thought process normal Skin no rashes or lesions noted and no wounds <Dr. Alisa Guaman DO - Last Filed: 07/29/24 15:15> Physical Exam Const Vital Signs: 07/26/24 13:28 07/26/24 15:28 Temperature 96.9 F L Temperature Source Temporal Pulse Rate 90 81 Respiratory Rate 14 18 Blood Pressure 136/108 H 136/81 H Blood Pressure Mean 117 99 Pulse Ox 100 98 Oxygen Delivery Method Nasal Cannula Nasal Cannula Oxygen Flow Rate (L/min) 2 2 MDM <GARY Rojas - Last Filed: 07/26/24 21:12> [facility] Narrative Medical decision making narrative: Patient presenting with generalized abdominal pain, nausea, vomiting, her symptoms started 2 days ago. She does have distention to her abdomen on exam. She denies any history of liver disease, ascites, or alcohol use. Abdominal labs obtained, her CBC is unremarkable, creatinine is 1.56 and BUN is 36, she does appear to have an JOSE, she will be given IV fluids. CT scan of the abdomen and pelvis shows a small bowel obstruction, no pneumoperitoneum. Dr. Bass was consulted, he recommended an NG tube and admitting her to the hospital. Her pain is under control, she is doing well on reexamination. Will speak with hospitalist regarding admission. Lab Data Attestation: I reviewed the patient's lab results. Labs: Laboratory Results - last 24 hr 07/26/24 07/26/24 16:11 17:04 WBC 7.8 RBC 3.88 L Hgb 11.5 L Hct 35.1 L MCV 90.5 MCH 29.6 MCHC 32.8 RDW Std Deviation 46.1 H RDW Coeff of Alejandra 14.0 Plt Count 258 MPV 10.5 Immature Gran % (Auto) 0.500 Neut % (Auto) 72.8 H Lymph % (Auto) 14.4 L [place] % (Auto) 10.3 H Eos % (Auto) 1.5 Baso % (Auto) 0.5 Absolute Neuts (auto) 5.7 Absolute Lymphs (auto) 1.12 Nucleated RBC % 0 Platelet Estimate A RBC Morphology NORM C+C Sodium 142 Potassium 4.5 Chloride 97 L Carbon Dioxide 29.2 Anion Gap 15 BUN 36 H Creatinine 1.56 H Estim Creat Clear Calc 31.49 L Est GFR (MDRD) Non-Af 37 L BUN/Creatinine Ratio 23.2 H Glucose 116 H Calcium 9.3 Total Bilirubin 0.49 AST 29 ALT 12 Alkaline Phosphatase 101 Total Protein 7.9 Albumin 4.4 Globulin 3.5 Albumin/Globulin Ratio 1.3 Lipase 12 L Urine Color Yellow Urine Clarity Clear Urine pH 5.0 Ur Specific Hegins 1.015 Urine Protein 30 H Urine Glucose (UA) Normal Urine Ketones Negative Urine Occult Blood Negative Urine Nitrite Negative Urine Bilirubin 1 H Urine Urobilinogen Normal Ur Leukocyte Esterase Negative Urine RBC 0 SEEN Urine WBC 0-5 SEEN Ur Squamous Epith Cells 0-5 SEEN Urine Bacteria 2+ Urine Mucus 0 SEEN Radiography Diagnostic Testing: Clinical Impression(s) from Imaging Studies Abdomen/Pelvis CT 07/26/24 16:40 IMPRESSION: 1. Diffuse dilation of the small bowel, with the transition point within the distal duodenum within the left upper quadrant. No pneumoperitoneum. 2. Diffuse hepatic steatosis. 3. Stable bibasilar consolidations. Reading Location: [id number] <Dr. Alisa Guaman, DO - Last Filed: 07/29/24 15:15> [facility] MDM Narrative Medical decision making narrative: Patient presenting with generalized abdominal pain, nausea, vomiting, her symptoms started 2 days ago. She does have distention to her abdomen on exam. She denies any history of liver disease, ascites, or alcohol use. Abdominal labs obtained, her CBC is unremarkable, creatinine is 1.56 and BUN is 36, she does appear to have an JOSE, she will be given IV fluids. CT scan of the abdomen and pelvis shows a small bowel obstruction, no pneumoperitoneum. Dr. Bass was consulted, he recommended an NG tube and admitting her to the hospital. Her pain is under control, she is doing well on reexamination. Will speak with hospitalist regarding admission. I have personally performed a face to face assessment of the patient and have reviewed the KELLY Note. I performed a substantive portion of the visit including all aspects of the following. My stover findings include: History is patient is a 63-year-old female denies any surgical history but does have abdominal scar and then states that she thinks that she had a hernia repair at some point. She initially denied any history of any GI issues biotics after further discussion and then thinks that she maybe has had a small bowel obstruction in the past. She is presenting today with 2 days of abdominal discomfort, distention, nausea and vomiting. She tells me her last bowel movement 2 days ago. She thinks that she does pass gas but is not sure. Denies any fever. On exam patient appears nontoxic. She has an odd affect. Mildly dry mucosal membranes. Abdomen is distended and mildly tympanic. She has high-pitched bowel sounds present. It is grossly nontender with no peritoneal findings. Differential include small bowel obstruction, colitis, diverticulitis, liver failure/ascites, volvulus as well as renal pathology. Patient is given IV fluids. She is not vomiting in the emergency room. CBC shows a mild anemia which appears to be near her baseline. No leukocytosis. CMP shows anelevation of her creatinine (1.56 where her baseline appears to be 0.98. This is consistent with an JOSE. Remainder of BMP largely unremarkable. CT of the abdomen and pelvis is consistent with small bowel obstruction however does comment that the transition point is at the distal duodenum within the left upper quadrant. This is discussed with Dr. Paez, general surgeon on- call. He recommends admission to medicine service, NG tube and further observation. Case discussed with hospitalist, Dr. Joe for admission. Initially patient is quite irate/anxious about having an NG tube however she ultimately does consent and is placed in the emergency room. Patient maintained and was stable to emergency room. Given IV fluids in the ER. Other additions or changes: [None] Lab Data Labs: Laboratory Results - last 24 hr 07/26/24 07/26/24 16:11 17:04 WBC 7.8 RBC 3.88 L Hgb 11.5 L Hct 35.1 L MCV 90.5 MCH 29.6 MCHC 32.8 RDW Std Deviation 46.1 H RDW Coeff of Alejandra 14.0 Plt Count 258 MPV 10.5 Immature Gran % (Auto) 0.500 Neut % (Auto) 72.8 H Lymph % (Auto) 14.4 L [place] % (Auto) 10.3 H Eos % (Auto) 1.5 Baso % (Auto) 0.5 Absolute Neuts (auto) 5.7 Absolute Lymphs (auto) 1.12 Nucleated RBC % 0 Platelet Estimate A RBC Morphology NORM C+C Sodium 142 Potassium 4.5 Chloride 97 L Carbon Dioxide 29.2 Anion Gap 15 BUN 36 H Creatinine 1.56 H Estim Creat Clear Calc 31.49 L Est GFR (MDRD) Non-Af 37 L BUN/Creatinine Ratio 23.2 H Glucose 116 H Calcium 9.3 Total Bilirubin 0.49 AST 29 ALT 12 Alkaline Phosphatase 101 Total Protein 7.9 Albumin 4.4 Globulin 3.5 Albumin/Globulin Ratio 1.3 Lipase 12 L Urine Color Yellow Urine Clarity Clear Urine pH 5.0 Ur Specific Hegins 1.015 Urine Protein 30 H Urine Glucose (UA) Normal Urine Ketones Negative Urine Occult Blood Negative Urine Nitrite Negative Urine Bilirubin 1 H Urine Urobilinogen Normal Ur Leukocyte Esterase Negative Urine RBC 0 SEEN Urine WBC 0-5 SEEN Ur Squamous Epith Cells 0-5 SEEN Urine Bacteria 2+ Urine Mucus 0 SEEN Radiography Diagnostic Testing: Clinical Impression(s) from Imaging Studies Abdomen/Pelvis CT 07/26/24 16:40 IMPRESSION: 1. Diffuse dilation of the small bowel, with the transition point within the distal duodenum within the left upper quadrant. No pneumoperitoneum. 2. Diffuse hepatic steatosis. 3. Stable bibasilar consolidations. Reading Location: [id number] Discharge Plan Dx/Rx/DC Orders Clinical Impression: Small bowel obstruction, COPD (chronic obstructive pulmonary disease), JOSE (acute kidney injury) Disposition Disposition: Acute Care [facility] Discharge Date/Time: 07/26/24 20:06
[2024-07-26] MEDS: Ondansetron 4 MG/2 ML Vial IV (16:09)
[2024-07-26] MEDS: Ketorolac 15 MG/ML Vial IV (16:09)
[2024-07-26] MEDS: 0.9% Normal Saline (500mL Bag) 500 ML 999 ML IV ×2 (16:09→17:20)
[2024-07-26 16:14] VITALS: BMI 31.8
[2024-07-26 16:21] LABS: Absolute Lymphocyte Count 1.12 X10^3/uL (0.83-4.51); Absolute Neutrophil Count 5.7 X10^3/uL (2.0-7.7); Basophil# 0.04 X10^3/uL; Basophil% 0.5 % (0-1); Eosinophil# 0.12 X10^3/uL; Eosinophils% 1.5 % (0-5); Hematocrit 35.1 % (37-47); Hemoglobin 11.5 g/dL (12.0-15.0); Lymphocyte # 1.12 X10^3/ul (0.83-4.51); Lymphocyte % 14.4 % (19-41); Mean Corp Hgb Conc 32.8 g/dL (32-36); Mean Corpuscular Hgb 29.6 pg (27.0-32.0); Mean Corpuscular Volume 90.5 fL (81-99); Mean Platelet Vol. 10.5 fl (6.2-12.0); Monocyte% 10.3 % (0-10); NRBC Flagged by Analyzer 0 % (0-5); Neutrophil # 5.66 X10^3/uL (2.7-7.7); Neutrophil % 72.8 % (47-70); POSITIVE MORPHOLOGY YES; Platelet Count 258 K/mm3 (150-450); RBC Distribution Width SD 46.1 fl (35.1-43.9); Red Blood Count 3.88 M/mm3 (4.2-5.4); White Blood Count 7.8 K/mm3 (4.4-11.0)
--- NOTE | 2024-07-26 16:40 | CT_ITS ---
PROCEDURE: ABDOMEN/PELVIS W IV CONT ONLY N/A REASON FOR EXAM: ABDOMINAL PAIN TECHNIQUE: Abdomen and pelvis CT with intravenous contrast. Coronal and Sagittal reconstruction series were provided. PATIENT PREPARATION: Per protocol ORAL CONTRAST TYPE: None. CONTRAST: Isovue 370 VOLUME: 100 mL One or more dose reduction techniques were used (e.g., Automated exposure control, adjustment of the mA and/or kV according to patient size, use of iterative reconstruction technique. RADIATION DOSE SUMMARY: CTDlvol: 25 mGy DLP: 710 mGycm COMPARISON: CT chest 05/17/2023. FINDINGS: Lung bases: Unchanged bibasilar consolidations. The heart is normal size. Liver: The liver is normal in size with diffuse hepatic steatosis. The major portal veins are patent. No biliary ductal dilation. Gallbladder: No radiopaque stones within the gallbladder. Spleen: Unremarkable. Pancreas: Atrophic. Adrenals: No adrenal mass. Kidneys: Mild symmetric renal cortical scarring. No hydronephrosis or nephrolithiasis. Bladder: Distended and unremarkable. Reproductive Organs: Prior hysterectomy. Adnexal regions are unremarkable. Bowel: Diffuse dilation of the small bowel loops measuring up to 3.8 cm, with the transition point within the distal duodenum within the left upper quadrant (series 2, image 47 and coronal image 57). No ascites or pneumoperitoneum. Normal appendix. Lymph nodes: Prominent retroperitoneal lymph nodes, likely reactive. No suspicious lymphadenopathy. Vasculature: Moderate mixed plaque of the aortoiliac vessels. Bones: Thoracolumbar spondylosis with mild multilevel chronic vertebral body height loss of the lower thoracic spine. Chronic fracture deformity of the left inferior pubic ramus. CT/Abdomen/Pelvis W IV Cont ONLY IMPRESSION: 1. Diffuse dilation of the small bowel, with the transition point within the di stal duodenum within the left upper quadrant. No pneumoperitoneum. 2. Diffuse hepatic steatosis. 3. Stable bibasilar consolidations. Reading Location: [id number]
[2024-07-26 16:43] LABS: Differential Indicated SCAN CRITERIA MET
[2024-07-26 16:44] LABS: Platelet Estimate A (ADEQ); Red Cell Morphology NORM C+C NORMAL (NORM C&C)
[2024-07-26 16:49] LABS: ALB/GLOB Ratio 1.3 RATIO (0.9-2.4); AST(SGOT) 29 U/L (<=31); Alanine Aminotransfer ALT/SGPT 12 U/L (<=34); Albumin, Serum 4.4 g/dL (3.4-4.8); Alkaline Phosphatase 101 U/L (35-104); Anion Gap 15 (5-15); BUN 36 mg/dL (4-19); BUN/Creat Ratio 23.2 RATIO (10-20); Calcium,Total 9.3 mg/dL (7.6-11.0); Carbon Dioxide 29.2 mmol/L (21.0-32.0); Chloride 97 mmol/L (98-108); Creatinine, Serum 1.56 mg/dL (0.70-1.20); EST Glomerular Filtration Rate 37 (>60); Estimated Creatinine Clearance 31.49 ml/min (50-250); Globulin 3.5 g/dL (2.2-4.2); Glucose 116 mg/dL (70-99); Lipase 12 U/L (13-75); Potassium 4.5 mmol/L (3.3-5.1); Protein, Total 7.9 g/dL (5.9-8.4); Sodium Level 142 mmol/L (133-145); Total Bilirubin 0.49 mg/dL (0.00-1.30)
[2024-07-26 17:13] LABS: Mucous, Urine 0 SEEN /hpf (<or=2+); Red Blood Cells-Urine 0 SEEN /hpf (0-5)
[2024-07-26 17:14] LABS: Color, Urine Yellow (Yellow); Glucose, Dipstick Normal (Normal); Ketone-Dipstick Negative (Negative); Leukocyte Esterase-Dipstick Negative /ul (Negative); Nitrite-Dipstick Negative (Negative); Occult Blood-Urine Negative /ul (Negative); Protein-Dipstick 30 mg/dl (Negative); Specific Gravity, Urine 1.015 (1.002-1.030); Urine Bilirubin Dipstick 1 mg/dL (Negative); Urine Clarity Clear (Clear); Urine Urobilinogen Normal (Normal)
[2024-07-26 17:19] LABS: Bacteria 2+ /hpf (None Seen); Squamous Epithelial Cells - UA 0-5 SEEN /hpf (5-10)
[2024-07-26 17:20] LABS: White Blood Cells 0-5 SEEN /hpf (0-5)
[2024-07-26] MEDS: Morphine 4 MG/ML Syringe IV (17:54)
--- NOTE | 2024-07-26 18:02 | ED.RN ---
PT DOES NOT WANT NG TUBE. PER DR GILES, PT DOES NOT REQUIRE IT UNTIL THEY VOMIT ANOTHER TIME
--- NOTE | 2024-07-26 18:10 | CM.ED ---
Social Work Date of referral: 07/26/24 Reason for referral: High levels of anxiety Referred by: Social Work Identification end worker responded to room of patient after patient could be heard from the hallway crying out and almost in hysteria. Client Service Associate went to the room, provided emotional support and engaged in calming and relaxation strategies until patient calmed. Patient's family member arrived, at which point, social media executive left. No other needs identified at this time. Ness Sparks, SUPERVISOR MACHINING, SEWER CONNECTOR
--- NOTE | 2024-07-26 18:27 | PCM.HP.STD ---
[facility] - General General Date of Service: 07/26/24 Chief Complaint: abdominal pain HPI Narrative TOMI DIA, is a 63 F who presents with 2 days of abdominal pain. Abdomen has become more distended and more painful. Presented to the emergency room and she had a CAT scan that showed a small bowel obstruction. Dr. Bass general surgery, was contacted and recommended NG tube and that surgery would be consultation. They mentioned NG tube for the patient and she became very emotionally labile and declined NG tube. I went there later discuss with the patient and patient had another person in the room who was called and patient did agree to get NG tube placed. Patient states that she has had a remote history of a small bowel obstruction in the past. States that she has had a hernia repair surgery. [facility] Medical History CHF (congestive heart failure) Anxiety Depression Kidney disease GERD (gastroesophageal reflux disease) Former smoker On home oxygen therapy Irregular heart beat Myocardial infarct Migraines Fibromyalgia NSTEMI (non-ST elevated myocardial infarction) Hypertension Rheumatoid arthritis Bipolar 1 disorder COPD (chronic obstructive pulmonary disease) COPD (chronic obstructive pulmonary disease) Home Medications ?Medication ?Instructions ?Recorded ?Last Taken ?Type albuterol sulfate 90 mcg/actuation 2 puff inhalation Q4H PRN PRN Sob 07/26/14 06/06/17 History aerosol inhaler (ProAir HFA) &/Or Wheezing nitroglycerin 0.4 mg sublingual 0.4 mg sublingual PRN PRN CHEST 06/04/17 Unknown History tablet PAIN amitriptyline 100 mg tablet 150 mg PO QHS depresssion 10/10/22 04/30/24 History meloxicam 7.5 mg tablet 15 mg PO DAILY pain 10/10/22 04/30/24 History sumatriptan succinate 50 mg tablet 50 mg PO PRN PRN migraine headache 10/10/22 04/30/24 History ondansetron 4 mg disintegrating 4 mg PO Q8H PRN PRN Nausea #14 tabs 11/14/22 Unknown Rx tablet atorvastatin 40 mg tablet 40 mg PO QHS Cholesterol 05/11/23 04/30/24 History buspirone 5 mg tablet 10 mg PO TID Anxiety 05/11/23 04/30/24 History dexlansoprazole 60 mg 60 mg PO DAILY GERD 05/11/23 Unknown History capsule,biphase delayed release escitalopram oxalate 20 mg tablet 20 mg PO DAILY depression 05/11/23 04/30/24 History fluticasone propionate 50 2 spray intranasal DAILY allergies 05/11/23 04/30/24 History mcg/actuation nasal spray,suspension hydroxyzine HCl 50 mg tablet 50 mg PO TID PRN Anxiety 05/11/23 04/30/24 History pregabalin 25 mg capsule 150 mg PO BID Nerve pain 05/11/23 04/30/24 History tizanidine 4 mg tablet 4 mg PO Q8H PRN PRN muscle spasm 05/11/23 04/30/24 History acetaminophen 325 mg tablet 1,000 mg (3.0769 x 325 mg) PO Q8H 05/20/23 Unknown Rx PRN PRN fever/pain 1-10 #0 tabs lisinopril 40 mg tablet 40 mg PO DAILY blood pressure 06/04/23 04/30/24 History furosemide 40 mg tablet 40 mg PO BIDCM water pill #120 tabs 06/06/23 Unknown Rx guaifenesin 1,200 mg tablet, 1,200 mg PO BID mucus #20 tabs 06/06/23 Unknown Rx extended release 12 hr (Mucus Relief ER) potassium chloride 20 mEq 20 meq PO DAILYCM diuretic use #30 06/06/23 04/30/24 Rx tablet,extended release(part/cryst) tabs trazodone 50 mg tablet 50 mg PO QHS insomnia 05/01/24 Unknown History azithromycin 500 mg tablet 500 mg PO DAILY 2 days #2 tabs 05/03/24 Unknown Rx prednisone 20 mg tablet 40 mg (2 x 20 mg) PO DAILY 2 days 05/05/24 Unknown Rx #4 tabs Allergy/AdvReac Type Severity Reaction Status Date / Time methotrexate Allergy Other Verified 07/26/24 13:29 nadolol Allergy Unknown Verified 07/26/24 13:29 prochlorperazine Allergy PT UNABLE Verified 07/26/24 13:29 TO RESPOND-NEEDS F/U baclofen AdvReac Other Verified 07/26/24 13:29 lorazepam (From Ativan) AdvReac Nausea Verified 07/26/24 13:29 propranolol AdvReac Other Verified 07/26/24 13:29 Family History Other COPD (chronic obstructive pulmonary disease) Social History Smoking Status: Former smoker substance use type: marijuana ROS ROS Narrative Chills. All review of systems were negative except as mentioned above in the history of present illness and the other review of systems. Vital Signs Vital Signs Vital Signs: 07/26/24 13:28 07/26/24 15:28 Temperature 36.1 C L Temperature Source Temporal Pulse Rate 90 81 Respiratory Rate 14 18 Blood Pressure 136/108 H 136/81 H Blood Pressure Mean 117 99 Pulse Ox 100 98 Oxygen Delivery Method Nasal Cannula Nasal Cannula Oxygen Flow Rate (L/min) 2 2 Weight Weight: 66.86 kg Body Mass Index (BMI) 31.8 Physical Exam Const alert Constitutional Narrative: Anxious. Cooperative. HEENT normocephalic and head/scalp atraumatic Neck no lymphadenopathy Neck Narrative: No thyromegaly Resp normal respiratory effort, no retractions, no use of accessory muscles and clear to auscultation bilaterally Cardio regular rate, regular rhythm, S1 normal heart sound and S2 normal heart sound GI GI Narrative: Distended. Hypoactive bowel sounds. Diffusely tender. Extremity normal to inspection and no clubbing, cyanosis or edema Neuro moves all extremities Sensorium / Orientation: awake and alert Psych Mood & Affect: anxious Results Lab / Micro Data Attestation: I reviewed the patient's lab results. 07/26/24 16:11 07/26/24 16:11 Labs: Laboratory Results - last 24 hr 07/26/24 16:11: WBC 7.8, RBC 3.88 L, Hgb 11.5 L, Hct 35.1 L, MCV 90.5, MCH 29.6, MCHC 32.8, RDW Std Deviation 46.1 H, RDW Coeff of Alejandra 14.0, Plt Count 258, MPV 10.5, Immature Gran % (Auto) 0.500, Neut % (Auto) 72.8 H, Lymph % (Auto) 14.4 L, [place] % (Auto) 10.3 H, Eos % (Auto) 1.5, Baso % (Auto) 0.5, Absolute Neuts (auto) 5.7, Absolute Lymphs (auto) 1.12, Nucleated RBC % 0, Platelet Estimate A, RBC Morphology NORM C+C, Sodium 142, Potassium 4.5, Chloride 97 L, Carbon Dioxide 29.2, Anion Gap 15, BUN 36 H, Creatinine 1.56 H, Estim Creat Clear Calc 31.49 L, Est GFR (MDRD) Non-Af 37 L, BUN/Creatinine Ratio 23.2 H, Glucose 116 H, Calcium 9.3, Total Bilirubin 0.49, AST 29, ALT 12, Alkaline Phosphatase 101, Total Protein 7.9, Albumin 4.4, Globulin 3.5, Albumin/Globulin Ratio 1.3, Lipase 12 L 07/26/24 17:04: Urine Color Yellow, Urine Clarity Clear, Urine pH 5.0, Ur Specific [place] 1.015, Urine Protein 30 H, Urine Glucose (UA) Normal, Urine Ketones Negative, Urine Occult Blood Negative, Urine Nitrite Negative, Urine Bilirubin 1 H, Urine Urobilinogen Normal, Ur Leukocyte Esterase Negative, Urine RBC 0 SEEN, Urine WBC 0-5 SEEN, Ur Squamous Epith Cells 0-5 SEEN, Urine Bacteria 2+, Urine Mucus 0 SEEN Imaging Radiology Impression Abdomen/Pelvis CT 07/26/24 16:40 IMPRESSION: 1. Diffuse dilation of the small bowel, with the transition point within the distal duodenum within the left upper quadrant. No pneumoperitoneum. 2. Diffuse hepatic steatosis. 3. Stable bibasilar consolidations. Reading Location: [id number] Assessment & Plan Assessment/Plan (1) Small bowel obstruction: PLAN: Symptoms began around the . CAT scan showed diffuse dilation of the small bowel with transition point within the distal duodenum. General surgery contacted by the emergency room physician and recommended NG tube. Patient was initially reluctant to have an NG tube placed but is now open to it. I discussed with Dr. Guaman, of the emergency room, and informed Dr. Guaman of the patient's now openness to have an NG tube placed. They will attempt to place it in the emergency room. Did forewarn the patient that it is typically uncomfortable having an NG tube in but its better than the alternative of having a distended tender abdomen. I did also discuss the patient and her friend at bedside that many times of small bowel fractions to the those can resolve on her own but does occasionally require surgery to which we would have surgery on board in case that would be necessary. In meantime, we will continue with IV fluids, IV pain medications with ketorolac and morphine. IV antiemetics. Patient be n.p.o. for the time being. PLAN: Plan Chronic conditions Heart failure: HFpEF (EF between 55% from June 2017) currently compensated. Holding off on furosemide for now. Hypertension: Stable. Olding off on lisinopril for this time as patient is n.p.o. History of migraines: Supportive management at this time. No active migraine. Consider IV/SQ triptans if necessary. Depression: Holding off on SSRIs for now. VTE prophylaxis with enoxaparin CODE STATUS: Addressed with the patient. Patient wishes to be full code. Charges/Coding Visit Charges Inpatient E&M: 31446 Init Hosp L3
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
--- NOTE | 2024-07-26 18:50 | RAD_ITS ---
PROCEDURE: ABDOMEN SINGLE VIEW (PORTABLE) 07/26/2024 REASON FOR EXAM: NG INSERTION TECHNIQUE: Single view abdomen. COMPARISON: Same day CT abdomen pelvis. FINDINGS: Support devices: Interval gastric tube placement with side hole and tip coursing below the level of the diaphragm. Visualization of the gastric tube is limited on lateral radiograph. Bowel gas: Persistent dilation of the visualized small bowel loops within the upper abdomen. Bones: There are degenerative changes of the spine. Other: Persistent bibasilar consolidations. RAD/Abdomen Single View (Portable) IMPRESSION: Interval gastric tube placement as described. Reading Location: [id number]
[2024-07-26 19:00] VITALS: BP 117/81; PULSE 88; RESP 18; O2SAT 95
--- NOTE | 2024-07-26 19:10 | CM.ED ---
Social Work: The adoptive mother (Tala Hummel) of patient's significant other (Trey Ortiz) requested to speak with social and human services assistant alone. Ms. Hummel stated she is concerned about patient's diet as patient only eats cereal, bread, jelly and drinks pop. Pateint does not have a guardian. ironing worker to make a referral to APS as patient appears to present with a possible cognitive disability and may or may not possess the capacity to be her own guardian. Ness Sparks, HELIOTHERAPIST, LOG CHIPPER
--- NOTE | 2024-07-26 19:17 | CM.ED ---
Social Work: Surgical Coordinator made a referral to APS as social work administrator uncertain as to patient's capacity to be her own guardian. Ness alexandre, FEATHER MIXER, TAR BOILER
[2024-07-26 19:45] VITALS: BP 116/72; PULSE 88; RESP 18; TEMP 37.4; O2SAT 95
[2024-07-26 19:46] VITALS: PULSE 86; RESP 15; O2SAT 95; BMI 30.8
[2024-07-26 20:15] VITALS: BP 138/77; PULSE 86; RESP 15; TEMP 37.1; O2SAT 97
[2024-07-26] MEDS: 0.9% Normal Saline (1000mL) 1,000 ML 125 ML IV (20:52)
[2024-07-26] MEDS: Morphine 2 MG/ML Syringe IV (22:26)
[2024-07-27 04:00] VITALS: BP 103/54; PULSE 85; PULSE 87; RESP 15; TEMP 37.1; O2SAT 96
[2024-07-27] MEDS: Morphine 4 MG/ML Syringe IV (04:28)
[2024-07-27] MEDS: 0.9% Normal Saline (1000mL) 1,000 ML 125 ML IV ×3 (05:00→22:40)
[2024-07-27 05:46] LABS: Absolute Lymphocyte Count 1.22 X10^3/uL (0.83-4.51); Absolute Neutrophil Count 3.4 X10^3/uL (2.0-7.7); Basophil# 0.03 X10^3/uL; Basophil% 0.5 % (0-1); Eosinophil# 0.35 X10^3/uL; Eosinophils% 6.1 % (0-5); Hematocrit 28.4 % (37-47); Hemoglobin 9.2 g/dL (12.0-15.0); Lymphocyte # 1.22 X10^3/ul (0.83-4.51); Lymphocyte % 21.2 % (19-41); Mean Corp Hgb Conc 32.4 g/dL (32-36); Mean Corpuscular Hgb 29.7 pg (27.0-32.0); Mean Corpuscular Volume 91.6 fL (81-99); Mean Platelet Vol. 10.4 fl (6.2-12.0); Monocyte# 0.71 X10^3/uL; Monocyte% 12.3 % (0-10); NRBC Flagged by Analyzer 0 % (0-5); Neutrophil # 3.43 X10^3/uL (2.7-7.7); Neutrophil % 59.7 % (47-70); POSITIVE MORPHOLOGY YES; Platelet Count 211 K/mm3 (150-450); RBC Distribution Width CV 14.1 % (11.6-14.6); RBC Distribution Width SD 46.8 fl (35.1-43.9); White Blood Count 5.8 K/mm3 (4.4-11.0)
[2024-07-27 05:51] LABS: Differential Indicated SCAN CRITERIA MET
[2024-07-27 06:12] LABS: Anion Gap 11 (5-15); BUN 35 mg/dL (4-19); Calcium,Total 8.2 mg/dL (7.6-11.0); Carbon Dioxide 26.1 mmol/L (21.0-32.0); Chloride 106 mmol/L (98-108); Creatinine, Serum 1.36 mg/dL (0.70-1.20); EST Glomerular Filtration Rate 44 (>60); Estimated Creatinine Clearance 35.52 ml/min (50-250); Glucose 111 mg/dL (70-99); Potassium 4.1 mmol/L (3.3-5.1); Sodium Level 143 mmol/L (133-145)
[2024-07-27 07:01] LABS: Differential Comment SCANNED
--- NOTE | 2024-07-27 07:24 | CON.PCM.SX_ITS ---
Assessment & Plan Assessment/Plan (1) Small bowel obstruction: PLAN: The patient has abdominal pain with distention. I reviewed her CT scan and it shows distention of the small bowel. They originally called the transition point of the duodenum but I believe this is a typo in the CT scan. The patient reports that she is passing flatus and feeling less distended. She still has an NG tube in place. I will order her some ice chips per her request. Continue NG suction. The output is still very dark. Plan for small bowel follow-through tomorrow. Kalyan Bass MD Pager: [facility] [address] [place] [address], [address] [place] [address] Office: HPI Consult Data Date of Consult: 07/27/24 HPI Narrative HPI Narrative: TOMI DIA, is a 63 F who presents with abdominal pain and nausea. The patient has had a bowel obstruction in the past which resolved spontaneously. She has had a hernia repair as well. She reports that this morning she is feeling better than she was yesterday. She says she is passing flatus. She has not had a bowel movement. She denies nausea but she does have an NG tube in place. [facility] Medical History (Updated 07/26/24 @ 21:11 by GARY Rojas) CHF (congestive heart failure) Anxiety Depression Kidney disease GERD (gastroesophageal reflux disease) Former smoker On home oxygen therapy Irregular heart beat Myocardial infarct Migraines Fibromyalgia NSTEMI (non-ST elevated myocardial infarction) Hypertension Rheumatoid arthritis Bipolar 1 disorder COPD (chronic obstructive pulmonary disease) COPD (chronic obstructive pulmonary disease) Home Medications ?Medication ?Instructions ?Recorded ?Last Taken ?Type albuterol sulfate 90 mcg/actuation 2 puff inhalation Q 4H PRN PRN Sob 07/26/14 06/06/17 History aerosol inhaler (ProAir HFA) &/Or Wheezing nitroglycerin 0.4 mg sublingual 0.4 mg sublingual PRN PRN CHEST 06/04/17 Unknown History tablet PAIN amitriptyline 100 mg tablet 150 mg PO QHS depresssion 10/10/22 04/30/24 History meloxicam 7.5 mg tablet 15 mg PO DAILY pain 10/10/22 04/30/24 History sumatriptan succinate 50 mg tablet 50 mg PO PRN PRN mi graine headache 10/10/22 04/30/24 History ondansetron 4 mg disintegrating 4 mg PO Q8H PRN PRN Na usea #14 tabs 11/14/22 Unknown Rx tablet atorvastatin 40 mg tablet 40 mg PO QHS Cholesterol 11/2504/30/24 History buspirone 5 mg tablet 10 mg PO TID Anxiety 4 04/30/24 History dexlansoprazole 60 mg 60 mg PO DAILY GERD 05/11/23 Unknown History capsule,biphase delayed release escitalopram oxalate 20 mg tablet 20 mg PO DAILY depre ssion 05/11/23 04/30/24 History hydroxyzine HCl 50 mg tablet 50 mg PO TID PRN Anxiety 05/11/23 04/30/24 History pregabalin 25 mg capsule 150 mg PO BID Nerve pain 11/2504/30/24 History tizanidine 4 mg tablet 4 mg PO Q8H PRN PRN muscle s pasm 05/11/23 04/30/24 History acetaminophen 325 mg tablet 1,000 mg (3.0769 x 325 mg) PO Q8H 05/20/23 Unknown Rx PRN PRN fever/pain 1-10 #0 tabs lisinopril 40 mg tablet 40 mg PO DAILY blood pressur e 06/04/23 04/30/24 History potassium chloride 20 mEq 20 meq PO DAILYCM diuretic u se #30 06/06/23 04/30/24 Rx tablet,extended release(part/cryst) tabs trazodone 50 mg tablet 50 mg PO QHS insomnia Unknown History albuterol sulfate 2.5 mg/3 mL 2.5 mg inhalation Q4H [place] N PRN 07/26/24 Unknown History (0.083 %) solution for nebulization wheezing buspirone 10 mg tablet 10 mg PO TID mental health 0 07/26/24 Unknown History escitalopram oxalate 20 mg tablet 20 mg PO DAILY depre ssion 07/26/24 Unknown History (Lexapro) fluticasone 250 mcg-salmeterol 50 1 ea inhalation BID copd 07/26/24 Unknown History mcg/dose blistr powdr for inhalation furosemide 40 mg tablet 40 mg PO DAILY water pill Unknown History loperamide 2 mg capsule 2 mg PO TID PRN PRN diarrhea 07/26/24 Unknown History Allergy/AdvReac Type Severity Reaction Status Date / Time methotrexate Allergy Other Verified 07/26/24 13:29 nadolol Allergy Unknown Verified 07/26/24 13:29 prochlorperazine Allergy PT UNABLE Verified 07/26/24 13:29 TO RESPOND-NEEDS F/U baclofen AdvReac Other Verified 07/26/24 13:29 lorazepam (From Ativan) AdvReac Nausea Verified 07/26/24 13:29 propranolol AdvReac Other Verified 07/26/24 13:29 Family History Other COPD (chronic obstructive pulmonary disease) Surgical History (Updated 07/26/24 @ 20:28 by Moraima Jonas) H/O umbilical hernia repair Social History Smoking Status: Former smoker substance use type: marijuana ROS Constitutional Constitutional: Denies anorexia, chills, fatigue or fever(s) Eyes Eyes: Denies blurry vision ENT HEENT: Denies abnormal hearing Cardiovascular Cardiovascular: Denies chest pain Respiratory/Chest Respiratory/Chest: Denies cough Gastrointestinal Gastrointestinal: Reports abdominal pain, nausea and vomiting; Denies constipation Genitourinary Genitourinary: Denies change in urinary stream Musculoskeletal Musculoskeletal: Denies abnormal gait Integumentary Integumentary: Denies jaundice Neurologic Neurologic: Denies abnormal gait Physical Exam Const alert and oriented x3 HEENT normocephalic Eyes PERRL Resp normal respiratory effort Cardio Rate: regular rate Rhythm: regular rhythm GI soft to palpation Inspection: abdominal distention Palpation: tender Lab / Micro Data 07/27/24 05:26 07/27/24 05:26 Labs: Laboratory Results - last 24 hr 07/26/24 16:11: WBC 7.8, RBC 3.88 L, Hgb 11.5 L, Hct 35.1 L, MCV 90.5, MCH 29.6, MCHC 32.8, RDW Std Deviation 46.1 H, RDW Coeff of Alejandra 14.0, Plt Count 258, MPV 10.5, Immature Gran % (Auto) 0.500, Neut % (Auto) 72.8 H, Lymph % (Auto) 14.4 L, [place] % (Auto) 10.3 H, Eos % (Auto) 1.5, Baso % (Auto) 0.5, Absolute Neuts (auto) 5.7, Absolute Lymphs (auto) 1.12, Nucleated RBC % 0, Platelet Estimate A, RBC Morphology NORM C+C, Sodium 142, Potassium 4.5, Chloride 97 L, Carbon Dioxide 29.2, Anion Gap 15, BUN 36 H, Creatinine 1.56 H, Estim Creat Clear Calc 31.49 L, Est GFR (MDRD) Non-Af 37 L, BUN/Creatinine Ratio 23.2 H, Glucose 116 H, Calcium 9.3, Total Bilirubin 0.49, AST 29, ALT 12, Alkaline Phosphatase 101, Total Protein 7.9, Albumin 4.4, Globulin 3.5, Albumin/Globulin Ratio 1.3, Lipase 12 L 07/26/24 17:04: Urine Color Yellow, Urine Clarity Clear, Urine pH 5.0, Ur Specific [place] 1.015, Urine Protein 30 H, Urine Glucose (UA) Normal, Urine Ketones Negative, Urine Occult Blood Negative, Urine Nitrite Negative, Urine Bilirubin 1 H, Urine Urobilinogen Normal, Ur Leukocyte Esterase Negative, Urine RBC 0 SEEN, Urine WBC 0-5 SEEN, Ur Squamous Epith Cells 0-5 SEEN, Urine Bacteria 2+, Urine Mucus 0 SEEN 07/27/24 05:26: WBC 5.8, RBC 3.10 L, Hgb 9.2 L, Hct 28.4 L, MCV 91.6, MCH 29.7, MCHC 32.4, RDW Std Deviation 46.8 H, RDW Coeff of Alejandra 14.1, Plt Count 211, MPV 10.4, Immature Gran % (Auto) 0.200, Neut % (Auto) 59.7, Lymph % (Auto) 21.2, M disha % (Auto) 12.3 H, Eos % (Auto) 6.1 H, Baso % (Auto) 0.5, Absolute Neuts (auto) 3.4, Absolute Lymphs (auto) 1.22, Nucleated RBC % 0, Differential Comment SCANNED, Sodium 143, Potassium 4.1, Chloride 106, Carbon Dioxide 26.1, Anion Gap 11, BUN 35 H, Creatinine 1.36 H, Estim Creat Clear Calc 35.52 L, Est GFR (MDRD) Non-Af 44 L, BUN/Creatinine Ratio 26.0 H, Glucose 111 H, Calcium 8.2 Imaging Radiology Impression Abdomen/Pelvis CT 07/26/24 16:40 IMPRESSION: 1. Diffuse dilation of the small bowel, with the transition point within the distal duodenum within the left upper quadrant. No pneumoperitoneum. 2. Diffuse hepatic steatosis. 3. Stable bibasilar consolidations. Reading Location: [facility] KUB X-Ray 07/26/24 18:50 IMPRESSION: Interval gastric tube placement as described. Reading Location: [id number]
[2024-07-27 08:08] VITALS: O2SAT 94
[2024-07-27 08:39] VITALS: BP 104/60; PULSE 84; RESP 18; TEMP 37.3; O2SAT 95
[2024-07-27] MEDS: Fluticasone 0.05% 1 SPRAY NASAL.SRY 2 SPRAY NASAL (08:44)
[2024-07-27] MEDS: Enoxaparin 40 MG/0.4 ML Syringe SC (08:44)
--- NOTE | 2024-07-27 13:49 | PN_ITS ---
Subjective Subjective Patient seen and examined. She still complained of feeling bloated. She is passing gas. She has the NG tube in situ which is still draining bilious fluid. She has a mild fever of 99.2F today. Review of sytems is otherwise negative. Objective Data Objective Data Vital Signs: Vital Signs Temp Pulse Resp BP Pulse Ox O2 Del Method O2 Flow Rate 99.2 F H 84 18 104/60 95 Nasal Cannula 3 07/27/24 08:39 07/27/24 08:39 07/27/24 08:39 07/27/24 08:39 07/27/24 08:39 07/27/24 08:39 07/27/24 08:39 Oxygen Flow Rate (L/min) 3 Oxygen Delivery Method Nasal Cannula Weight: 142 lb 6.698 oz Body Mass Index (BMI) 30.8 Intake & Output: Intake and Output for Last 24 Hours 07/25/24 07/26/24 07/27/24 23:59 23:59 23:59 Intake Total 1000 / 1000 1000 / 1000 Output Total 300 / 600 700 / 700 Balance 700 / 400 300 / 300 Lab / Micro Data 07/27/24 05:26 07/27/24 05:26 Labs: Laboratory Results - last 24 hr 07/26/24 16:11: WBC 7.8, RBC 3.88 L, Hgb 11.5 L, Hct 35.1 L, MCV 90.5, MCH 29.6, MCHC 32.8, RDW Std Deviation 46.1 H, RDW Coeff of Alejandra 14.0, Plt Count 258, MPV 10.5, Immature Gran % (Auto) 0.500, Neut % (Auto) 72.8 H, Lymph % (Auto) 14.4 L, [place] % (Auto) 10.3 H, Eos % (Auto) 1.5, Baso % (Auto) 0.5, Absolute Neuts (auto) 5.7, Absolute Lymphs (auto) 1.12, Nucleated RBC % 0, Platelet Estimate A, RBC Morphology NORM C+C, Sodium 142, Potassium 4.5, Chloride 97 L, Carbon Dioxide 29.2, Anion Gap 15, BUN 36 H, Creatinine 1.56 H, Estim Creat Clear Calc 31.49 L, Est GFR (MDRD) Non-Af 37 L, BUN/Creatinine Ratio 23.2 H, Glucose 116 H, Calcium 9.3, Total Bilirubin 0.49, AST 29, ALT 12, Alkaline Phosphatase 101, Total Protein 7.9, Albumin 4.4, Globulin 3.5, Albumin/Globulin Ratio 1.3, Lipase 12 L 07/26/24 17:04: Urine Color Yellow, Urine Clarity Clear, Urine pH 5.0, Ur Specific [place] 1.015, Urine Protein 30 H, Urine Glucose (UA) Normal, Urine Ketones Negative, Urine Occult Blood Negative, Urine Nitrite Negative, Urine Bilirubin 1 H, Urine Urobilinogen Normal, Ur Leukocyte Esterase Negative, Urine RBC 0 SEEN, Urine WBC 0-5 SEEN, Ur Squamous Epith Cells 0-5 SEEN, Urine Bacteria 2+, Urine Mucus 0 SEEN 07/27/24 05:26: WBC 5.8, RBC 3.10 L, Hgb 9.2 L, Hct 28.4 L, MCV 91.6, MCH 29.7, MCHC 32.4, RDW Std Deviation 46.8 H, RDW Coeff of Alejandra 14.1, Plt Count 211, MPV 10.4, Immature Gran % (Auto) 0.200, Neut % (Auto) 59.7, Lymph % (Auto) 21.2, M disha % (Auto) 12.3 H, Eos % (Auto) 6.1 H, Baso % (Auto) 0.5, Absolute Neuts (auto) 3.4, Absolute Lymphs (auto) 1.22, Nucleated RBC % 0, Differential Comment SCANNED, Sodium 143, Potassium 4.1, Chloride 106, Carbon Dioxide 26.1, Anion Gap 11, BUN 35 H, Creatinine 1.36 H, Estim Creat Clear Calc 35.52 L, Est GFR (MDRD) Non-Af 44 L, BUN/Creatinine Ratio 26.0 H, Glucose 111 H, Calcium 8.2 Radiography Diagnostic Testing: Radiology Impression Abdomen/Pelvis CT 07/26/24 16:40 IMPRESSION: 1. Diffuse dilation of the small bowel, with the transition point within the distal duodenum within the left upper quadrant. No pneumoperitoneum. 2. Diffuse hepatic steatosis. 3. Stable bibasilar consolidations. Reading Location: [id number] KUB X-Ray 07/26/24 18:50 IMPRESSION: Interval gastric tube placement as described. Reading Location: [id number] Physical Exam Const alert, oriented x3 and no apparent distress Constitutional Narrative: frail General Appearance: cooperative and well developed HEENT normocephalic, head/scalp atraumatic and oropharynx normal HEENT Narrative: dry oral mucosa Eyes PERRL and EOMs intact bilaterally Neck no lymphadenopathy, supple and no JVD Lymph Lymphatic: no lymphadenopathy noted and no lymphedema noted Resp normal respiratory effort, normal air movement and clear to auscultation bilaterally Cardio regular rate, regular rhythm, S1 normal heart sound, S2 normal heart sound and no murmurs GI GI Narrative: abdomen mildly distended, no guarding, tympanitic to touch. NG tube in situ draining bilious fluid. Extremity normal capillary refill, no clubbing, cyanosis or edema and no calf tenderness General Extremity: no tenderness to palpation of joints or extremities Skin General Skin Exam: no breakdown Neuro CN's II-XII intact bilaterally, no focal motor deficits and no sensory deficits noted Motor Exam: strength 5/5 throughout and general weakness Psych thought process normal, cooperative and affect normal Appearance: appropriate Assessment & Plan Assessment/Plan (1) Small bowel obstruction: PLAN: Plan #Small bowel obstruction * Admitted with complaint of abdominal pain and distention. CT of the abdomen showed a small bowel obstruction. * She is abdominal pain is improved. NG tube still in situ draining bilious fluid. * Keep NPO. Continue hydration with IV fluid. General surgery on board. * To have KUB follow-through tomorrow. * #JOSE * Cr is 1.36, was 1.56 yesterday. * Baseline Cr is 0.98. Will continue hydration and monitor. * #GERD: PPI #History of CAD: #History of heart failure preserved ejection fraction: * Not in exacerbation. has known EF of 55% * Breathing treatments bronchodilators. #COPD: Not in exacerbation. Breathing treatment with bronchodilators. #Anxiety and depression: #Hypertension: lisinopril held as patient is NPO #Depression: on SSR. #History of migraines: stable. Not having any active migraine now. DVT prophylaxis: lovenox Charges/Coding Visit Charges Inpatient E&M: 40063 Subs Hosp L2
[2024-07-27 14:00] VITALS: BP 136/62; PULSE 81; RESP 18; TEMP 36.8; O2SAT 98
[2024-07-27] MEDS: Morphine 2 MG/ML Syringe IV ×2 (14:06→20:22)
[2024-07-27 20:07] VITALS: BP 168/91; PULSE 86; RESP 18; TEMP 36.7; O2SAT 100
[2024-07-27] MEDS: Ondansetron 4 MG/2 ML Vial IV (20:22)
[2024-07-27] MEDS: Ketorolac 15 MG/ML Vial IV (21:56)
[2024-07-28] VITALS (8 sets, daily range): BP systolic 123–187; BP diastolic 66–107; PULSE 65–101; RESP 16–18; TEMP 36.4–37.1; O2SAT 95–100
[2024-07-28] MEDS: Morphine 2 MG/ML Syringe IV ×2 (01:38→08:23)
[2024-07-28] MEDS: Ketorolac 15 MG/ML Vial IV ×2 (04:30→20:35)
[2024-07-28 04:53] LABS: Absolute Lymphocyte Count 1.34 X10^3/uL (0.83-4.51); Absolute Neutrophil Count 4.8 X10^3/uL (2.0-7.7); Basophil# 0.02 X10^3/uL; Basophil% 0.3 % (0-1); Eosinophil# 0.13 X10^3/uL; Eosinophils% 1.9 % (0-5); Hematocrit 28.3 % (37-47); Hemoglobin 9.1 g/dL (12.0-15.0); Lymphocyte # 1.34 X10^3/ul (0.83-4.51); Lymphocyte % 19.3 % (19-41); Mean Corp Hgb Conc 32.2 g/dL (32-36); Mean Corpuscular Hgb 30.2 pg (27.0-32.0); Mean Platelet Vol. 11.1 fl (6.2-12.0); Monocyte# 0.65 X10^3/uL; Monocyte% 9.4 % (0-10); NRBC Flagged by Analyzer 0 % (0-5); Neutrophil # 4.77 X10^3/uL (2.7-7.7); Neutrophil % 68.7 % (47-70); POSITIVE MORPHOLOGY YES; Platelet Count 184 K/mm3 (150-450); RBC Distribution Width CV 13.6 % (11.6-14.6); RBC Distribution Width SD 46.8 fl (35.1-43.9); Red Blood Count 3.01 M/mm3 (4.2-5.4); White Blood Count 6.9 K/mm3 (4.4-11.0)
[2024-07-28 04:58] LABS: Differential Indicated SCAN CRITERIA MET
[2024-07-28 05:56] LABS: Anion Gap 14 (5-15); BUN 25 mg/dL (4-19); BUN/Creat Ratio 23.8 RATIO (10-20); Calcium,Total 8.9 mg/dL (7.6-11.0); Carbon Dioxide 24.5 mmol/L (21.0-32.0); Chloride 108 mmol/L (98-108); Creatinine, Serum 1.03 mg/dL (0.70-1.20); EST Glomerular Filtration Rate 61 (>60); Glucose 92 mg/dL (70-99); Potassium 4.2 mmol/L (3.3-5.1); Sodium Level 147 mmol/L (133-145)
[2024-07-28 06:16] LABS: Differential Comment SCANNED; Platelet Estimate ADEQUATE (ADEQ); Red Cell Morphology NORM C+C NORMAL (NORM C&C)
[2024-07-28] MEDS: hydrALAZINE 20 MG/ML Vial 10 MG IV (06:56)
--- NOTE | 2024-07-28 07:10 | RAD_ITS ---
PROCEDURE: SMALL BOWEL SERIES ONLY 07/28/2024 REASON FOR EXAM: SBO TECHNIQUE: Gastrografin was introduced through the nasogastric tube. Small bowel follow- through examination was obtained. COMPARISON: Prior radiograph dated July 26, 2024. FINDINGS: On the category specialist view, a large amount of fecal material is seen in the colon. The small bowel gas is unremarkable. Small bowel follow-through examination was performed. There is evidence of a small diverticulum in the 3rd portion of the duodenum. Small bowel measures upper limits of normal. Contrast is seen within the entire colon at 3 hours. RAD/Small Bowel Series Only IMPRESSION: No evidence of small-bowel obstruction at this time. Large amount of fecal material is seen in the colon. Reading Location: [place] [address]
--- NOTE | 2024-07-28 07:13 | PN.SURG_ITS ---
Subjective Subjective Patient is not reporting any flatus. She denies abdominal pain. Objective Data Objective Data Vital Signs: Vital Signs Temp Pulse Resp BP Pulse Ox O2 Del Method O2 Flow Rate 98.4 F 81 16 182/107 H 97 Nasal Cannula 2 07/28/24 04:17 07/28/24 06:56 07/28/24 04:17 07/28/24 06:56 07/28/24 04:17 07/28/24 04:17 07/28/24 04:17 Oxygen Flow Rate (L/min) 2 Oxygen Delivery Method Nasal Cannula Weight: 142 lb 6.698 oz Body Mass Index (BMI) 30.8 Intake & Output: Intake and Output for Last 24 Hours 07/26/24 07/27/24 07/28/24 23:59 23:59 23:59 Intake Total 1000 / 1000 3410 / 3410 350 / 350 Output Total 300 / 600 1500 / 1500 2000 / 2000 Balance 700 / 400 1910 / 1910 -1650 / -1650 Lab / Micro Data 07/28/24 04:26 07/28/24 04:26 Labs: Laboratory Results - last 24 hr 07/28/24 04:26: WBC 6.9, RBC 3.01 L, Hgb 9.1 L, Hct 28.3 L, MCV 94.0, MCH 30.2, MCHC 32.2, RDW Std Deviation 46.8 H, RDW Coeff of Alejandra 13.6, Plt Count 184, MPV 11.1, Immature Gran % (Auto) 0.400, Neut % (Auto) 68.7, Lymph % (Auto) 19.3, [place] % (Auto) 9.4, Eos % (Auto) 1.9, Baso % (Auto) 0.3, Absolute Neuts (auto) 4.8, Absolute Lymphs (auto) 1.34, Nucleated RBC % 0, Differential Comment SCANNED, Platelet Estimate ADEQUATE, RBC Morphology NORM C+C, Sodium 147 H, Potassium 4.2, Chloride 108, Carbon Dioxide 24.5, Anion Gap 14, BUN 25 H, Creatinine 1.03, Estim Creat Clear Calc 46.90 L, Est GFR (MDRD) Non-Af 61, B UN/Creatinine Ratio 23.8 H, Glucose 92, Calcium 8.9 Physical Exam Const oriented x3 and no apparent distress Resp normal respiratory effort GI soft to palpation Inspection: abdominal distention Assessment & Plan Assessment/Plan (1) Small bowel obstruction: PLAN: The patient is still distended. She does not report flatus. I will order a small bowel follow-through today via the NG.
[2024-07-28] MEDS: 0.9% Normal Saline (1000mL) 1,000 ML 125 ML IV ×2 (08:12→16:59)
[2024-07-28] MEDS: Fluticasone 0.05% 1 SPRAY NASAL.SRY 2 SPRAY NASAL (08:18)
[2024-07-28] MEDS: Enoxaparin 40 MG/0.4 ML Syringe SC (08:19)
[2024-07-28] MEDS: Ondansetron 4 MG/2 ML Vial IV ×2 (08:23→20:36)
[2024-07-28] MEDS: 0.9% Saline Lock 10 ML Syringe IV (08:24)
--- NOTE | 2024-07-28 11:12 | PN_ITS ---
Subjective Subjective Patient seen and examined. She looks very uncomfortable and was writhing in pain. She felt her abdomen was more distended and it did look more distended. She is having the small bowel follow-through. Blood pressure has been elevated in the 180s systolic. Radiology and general surgery okay with her resuming her meds for the NG tube was having the small bowel follow-through. Review of systems otherwise negative. Objective Data Objective Data Vital Signs: Vital Signs Temp Pulse Resp BP Pulse Ox O2 Del Method O2 Flow Rate 98.0 F 101 H 18 184/85 H 96 Nasal Cannula 3 07/28/24 08:13 07/28/24 08:13 07/28/24 08:13 07/28/24 08:13 07/28/24 08:13 07/28/24 08:13 07/28/24 08:13 Oxygen Flow Rate (L/min) 3 Oxygen Delivery Method Nasal Cannula Weight: 142 lb 6.698 oz Body Mass Index (BMI) 30.8 Intake & Output: Intake and Output for Last 24 Hours 07/26/24 07/27/24 07/28/24 23:59 23:59 23:59 Intake Total 1000 / 1000 3410 / 3410 1350 / 1350 Output Total 300 / 600 1500 / 1500 2000 / 2000 Balance 700 / 400 1910 / 1910 -650 / -650 Lab / Micro Data 07/28/24 04:26 07/28/24 04:26 Labs: Laboratory Results - last 24 hr 07/28/24 04:26: WBC 6.9, RBC 3.01 L, Hgb 9.1 L, Hct 28.3 L, MCV 94.0, MCH 30.2, MCHC 32.2, RDW Std Deviation 46.8 H, RDW Coeff of Alejandra 13.6, Plt Count 184, MPV 11.1, Immature Gran % (Auto) 0.400, Neut % (Auto) 68.7, Lymph % (Auto) 19.3, [place] % (Auto) 9.4, Eos % (Auto) 1.9, Baso % (Auto) 0.3, Absolute Neuts (auto) 4.8, Absolute Lymphs (auto) 1.34, Nucleated RBC % 0, Differential Comment SCANNED, Platelet Estimate ADEQUATE, RBC Morphology NORM C+C, Sodium 147 H, Potassium 4.2, Chloride 108, Carbon Dioxide 24.5, Anion Gap 14, BUN 25 H, Creatinine 1.03, Estim Creat Clear Calc 46.90 L, Est GFR (MDRD) Non-Af 61, B UN/Creatinine Ratio 23.8 H, Glucose 92, Calcium 8.9 Radiography Diagnostic Testing: Radiology Impression Small Bowel X-Ray 07/28/24 07:10 IMPRESSION: No evidence of small-bowel obstruction at this time. Large amount of fecal material is seen in the colon. Reading Location: [facility] Physical Exam Const alert, oriented x3 and no apparent distress Constitutional Narrative: frail General Appearance: cooperative and well developed HEENT normocephalic, head/scalp atraumatic and oropharynx normal Eyes PERRL and EOMs intact bilaterally Neck no lymphadenopathy, supple and no JVD Neck Narrative: No thyromegaly Lymph Lymphatic: no lymphadenopathy noted and no lymphedema noted Resp normal respiratory effort, normal air movement, no retractions, no use of accessory muscles and clear to auscultation bilaterally Cardio regular rate, regular rhythm, S1 normal heart sound, S2 normal heart sound and no murmurs GI GI Narrative: abdomen moderately distended, no guarding, tympanitic to touch. NG tube in situ draining bilious fluid. Abdomen mildly tender to touch Extremity normal to inspection, normal capillary refill, no clubbing, cyanosis or edema and no calf tenderness General Extremity: no tenderness to palpation of joints or extremities Skin General Skin Exam: no breakdown Neuro CN's II-XII intact bilaterally, moves all extremities, no focal motor deficits and no sensory deficits noted Sensorium / Orientation: awake and alert Motor Exam: strength 5/5 throughout and general weakness Psych thought process normal Activity / Motor Behavior: restless Mood & Affect: anxious Assessment & Plan Assessment/Plan (1) Small bowel obstruction: PLAN: Plan #Small bowel obstruction * Admitted with complaint of abdominal pain and distention. CT of the abdomen showed a small bowel obstruction. * She is abdominal pain is improved. NG tube still in situ draining bilious fluid. * Keep NPO. Continue hydration with IV fluid. General surgery on board. * having small bowel follow through today * #JOSE * resovled. Cr is down to 1.03. * #GERD: PPI #History of heart failure preserved ejection fraction: * Not in exacerbation. has known EF of 55% * Breathing treatments bronchodilators. #COPD: Not in exacerbation. Breathing treatment with bronchodilators. #Anxiety and depression: meds resumed; on buspirone and amitryptiline #Hypertension: lisinopril resumed. IV hydralazine prn #Depression: on SSR. #History of migraines: stable. Not having any active migraine now. DVT prophylaxis: lovenox Charges/Coding Visit Charges Inpatient E&M: 04589 Subs Hosp L2
[2024-07-28] MEDS: Escitalopram Oxalate 20 MG Tablet PO (11:28)
[2024-07-28] MEDS: Lisinopril 40 MG Tablet PO (11:28)
[2024-07-28] MEDS: Fleet Enema 133 ML RC (11:32)
[2024-07-28] MEDS: busPIRone 5 MG Tablet 10 MG PO ×2 (15:02→22:31)
[2024-07-28] MEDS: hydrOXYzine PAM 25 MG Capsule 50 MG PO (15:05)
--- NOTE | 2024-07-28 15:28 | CASEMGMT ---
Addendum entered by Nilda Schaffer 07/28/24 16:49: Pt reports 2L at rest and 4L at exertion for home O2. Oxygen is through [employer], whom pt owes money per pt report. DHAVAL Yañez Original Note: Social Work SW?to room to meet with patient for initial transition planning/care coordination?assessment.?SW?introduced self and role at [facility].? Pt voices understanding and consents to?assessment.? Pt is A/Ox4 and answers all questions appropriately.?? Care providers, pharmacy, and demographics verified. PCP: Amalia Rice Specialists: Dr Hampton, [facility]/psychiatrist; Gwen Duenas, [address]; Dr Molina- [facility]/orthopedist; unnown name- arthritis dr Bradshaw [facility]; unknown name- cardiology [facility] Preferred Pharmacy: [facility] Insurance: [facility] Dual Prescription Benefit:?Yes Living Will/HPOA:?No LNOK: Lukasz- brother- in [place], although uncertain of exact location as it has been 4 years since she has seen him; Beth- daughter- in [place]; Trey- SO of a long time- lives with pt at least part-time Living Arrangements: Mobile home with 3 stairs with a handrail to enter. Pt reports that SO doesn't stay [with her] much. Pt reports that she makes microwavable meals and receives home-delivered meals. Pt reports that she is independent in all ALDs and IADLs including medication management and finances. Transportation:?Pt reports that So drives pt. Pt declined any other transportation resources. DME: Shower chair, wheeled walker? HHC/SNF: Denies either. Reported that SO won't allow HHC in the home, but states I do need it PLAN: Pt plans to return home. Pt is adamantly opposed to SNF. Pt was observed to have a constant internal dialogue, leading to presentation of disorganized thinking. Pt was observed to have flight of ideas and non-tangential speech by this worker. SW noted that pt expressed psychomotor agitation expressed through repetitive facial distortions and a ticking of foot. Pt was disheveled in appearance and displayed restless body language. Pt presented to this worker as guarded, often repeating I don't trust anybody. Pt reports that she feels SO is putting stuff in her food. Pt reports he has done this to other women. Pt affirmed that she has noticed a change in his behavior, reporting that SO has been aggressive towards pt. Pt reports he knows he's not supposed to have drugs back in this trailer. Pt shared that SO had been busted for drugs and spent 2 years in group home recently. Pt reports that she is on probation for taking her special needs dtr money. Pt reports that she was scheduled to see PO today. SW guided pt through calling chief media officer while SW was present. Pt repeatedly attempted to call, only to scroll the phone and place the phone down without calling. Pt mumbled why do these names look familiar. SW checked phone and pt was on messenger. SW showed pt where keypad was and pt was then able to complete the call. Kathy is PO. HERNANDO provided fax number for [facility] for release as pt was agreeable so that PO could be notified of discharge and stay. HERNANDO notified hospitalist of pt concerns regarding SO putting stuff in food. HERNANDO collaborated on pt case with complaint supervisor. HERNANDO updated RNCM on pt discharge plans. HERNANDO remains available to follow for discharge planning needs and to notify [facility]PS of discharge. DHAVAL Yañez
[2024-07-28] MEDS: Pregabalin 75 MG Capsule 150 MG PO (22:30)
[2024-07-28] MEDS: traZODone 50 MG Tablet PO (22:30)
[2024-07-28] MEDS: Amitriptyline 100 MG Tablet 150 MG PO (22:31)
[2024-07-28] MEDS: Atorvastatin Calcium 40 MG Tablet PO (22:31)
[2024-07-28] MEDS: Rizatriptan Benzoate 10 MG Tablet PO (22:43)
[2024-07-29] VITALS (8 sets, daily range): BP systolic 135–162; BP diastolic 76–93; PULSE 74–106; RESP 16–20; TEMP 36.6–39.3; O2SAT 94–100
[2024-07-29] MEDS: 0.9% Normal Saline (1000mL) 1,000 ML 125 ML IV ×3 (00:59→17:59)
[2024-07-29] MEDS: busPIRone 5 MG Tablet 10 MG PO ×3 (05:24→22:59)
[2024-07-29 06:44] LABS: Absolute Neutrophil Count 5.9 X10^3/uL (2.0-7.7); Basophil# 0.02 X10^3/uL; Basophil% 0.2 % (0-1); Eosinophil# 0.38 X10^3/uL; Eosinophils% 4.6 % (0-5); Hematocrit 27.5 % (37-47); Hemoglobin 8.8 g/dL (12.0-15.0); Lymphocyte % 14.6 % (19-41); Mean Corpuscular Hgb 29.8 pg (27.0-32.0); Mean Corpuscular Volume 93.2 fL (81-99); Mean Platelet Vol. 10.8 fl (6.2-12.0); Monocyte# 0.71 X10^3/uL; Monocyte% 8.6 % (0-10); NRBC Flagged by Analyzer 0 % (0-5); Neutrophil # 5.86 X10^3/uL (2.7-7.7); Neutrophil % 71.4 % (47-70); POSITIVE MORPHOLOGY YES; Platelet Count 163 K/mm3 (150-450); RBC Distribution Width CV 13.4 % (11.6-14.6); Red Blood Count 2.95 M/mm3 (4.2-5.4); White Blood Count 8.2 K/mm3 (4.4-11.0)
[2024-07-29 06:49] LABS: Differential Indicated SCAN CRITERIA MET
[2024-07-29 07:23] LABS: Anion Gap 10 (5-15); BUN 13 mg/dL (4-19); BUN/Creat Ratio 16.4 RATIO (10-20); Calcium,Total 8.3 mg/dL (7.6-11.0); Carbon Dioxide 25.6 mmol/L (21.0-32.0); Chloride 108 mmol/L (98-108); EST Glomerular Filtration Rate 83 (>60); Estimated Creatinine Clearance 60.38 ml/min (50-250); Glucose 100 mg/dL (70-99); Potassium 2.9 mmol/L (3.3-5.1); Sodium Level 143 mmol/L (133-145)
--- NOTE | 2024-07-29 07:31 | PN.SURG_ITS ---
Subjective Subjective Patient has small bowel follow-through yesterday. It showed no obstruction and her NG was removed and she was started on clears. She tolerated clears. She is passing flatus and had 3 bowel movements. Objective Data Objective Data Vital Signs: Vital Signs Temp Pulse Resp BP Pulse Ox O2 Del Method O2 Flow Rate 98 F 80 18 161/84 H 100 Nasal Cannula 2 07/29/24 05:20 07/29/24 05:20 07/29/24 05:20 07/29/24 05:20 07/29/24 05:20 07/29/24 05:20 07/29/24 05:20 Oxygen Flow Rate (L/min) 2 Oxygen Delivery Method Nasal Cannula Weight: 142 lb 6.698 oz Body Mass Index (BMI) 30.8 Intake & Output: Intake and Output for Last 24 Hours 07/27/24 07/28/24 07/29/24 23:59 23:59 23:59 Intake Total 3410 / 3410 3070 / 3070 1999 Output Total 1500 / 1500 2049 / 2049 Balance 1909 / 1909 1020 / 1020 1999 Lab / Micro Data 07/29/24 06:16 07/29/24 06:16 Labs: Laboratory Results - last 24 hr 07/29/24 06:16: WBC 8.2, RBC 2.95 L, Hgb 8.8 L, Hct 27.5 L, MCV 93.2, MCH 29.8, MCHC 32.0, RDW Std Deviation 46.0 H, RDW Coeff of Alejandra 13.4, Plt Count 163, MPV 10.8, Immature Gran % (Auto) 0.600, Neut % (Auto) 71.4 H, Lymph % (Auto) 14.6 L, [place] % (Auto) 8.6, Eos % (Auto) 4.6, Baso % (Auto) 0.2, Absolute Neuts (auto) 5.9, Absolute Lymphs (auto) 1.20, Nucleated RBC % 0, Sodium 143, Potassium 2.9 L , Chloride 108, Carbon Dioxide 25.6, Anion Gap 10, BUN 13, Creatinine 0.80, Estim Creat Clear Calc 60.38, Est GFR (MDRD) Non-Af 83, BUN/Creatinine Ratio 16.4, Glucose 100 H, Calcium 8.3 Radiography Diagnostic Testing: Radiology Impression Small Bowel X-Ray 07/28/24 07:10 IMPRESSION: No evidence of small-bowel obstruction at this time. Large amount of fecal material is seen in the colon. Reading Location: [facility] Physical Exam Const oriented x3 and no apparent distress Resp normal respiratory effort GI soft to palpation and non-tender Assessment & Plan Assessment/Plan (1) Small bowel obstruction: PLAN: Patient had small bowel follow-through yesterday which was normal. She was started on clear liquids and tolerated this well. I will advance her to regular diet today. If she tolerates regular diet she can be discharged home from my standpoint. Follow-up as needed. Kalyan Bass MD Pager: [facility] [address] [place] [address], [address] [place] [phone] Office:
[2024-07-29] MEDS: Budesonide Respules 0.5 MG/2 ML AMPUL.NEB. INHALATION (07:40)
[2024-07-29] MEDS: Albuterol 2.5 MG/3 ML VIAL.NEB. INHALATION (07:40)
[2024-07-29] MEDS: Pantoprazole Sodium 40 MG Tablet PO (09:20)
[2024-07-29] MEDS: Fluticasone 0.05% 1 SPRAY NASAL.SRY 2 SPRAY NASAL (09:20)
[2024-07-29] MEDS: 0.9% Saline Lock 10 ML Syringe IV ×2 (09:21→10:48)
[2024-07-29] MEDS: Lisinopril 40 MG Tablet PO (09:21)
[2024-07-29] MEDS: Escitalopram Oxalate 20 MG Tablet PO (09:21)
[2024-07-29] MEDS: Pregabalin 75 MG Capsule 150 MG PO ×2 (09:21→23:00)
[2024-07-29] MEDS: Furosemide 40 MG Tablet PO (09:21)
[2024-07-29] MEDS: Enoxaparin 40 MG/0.4 ML Syringe SC (09:21)
[2024-07-29] MEDS: Potassium Chloride 10mEq/100mL 10 MEQ/100 ML IV.SOLN. 100 MEQ IV BOLUS ×4 (09:22→14:38)
[2024-07-29] MEDS: Rizatriptan Benzoate 10 MG Tablet PO (10:59)
[2024-07-29] MEDS: Acetaminophen 325 MG Tablet 650 MG PO ×2 (13:58→22:59)
--- NOTE | 2024-07-29 14:59 | PCM.PROGNOTE ---
Subjective Subjective Patient seen and examined. She had no active complaints at time of review. SHe had tolerated a regular diet. Patient however developed a fever of up to 101.4 later today. She denied any shortness of breath or coughing or any urinary symptoms. She is not having any diarrhea. Review of systems otherwise negative. Objective Data Objective Data Vital Signs: Vital Signs Temp Pulse Resp BP Pulse Ox O2 Del Method O2 Flow Rate 101 F H 81 18 154/87 H 97 Nasal Cannula 2 07/29/24 14:07 07/29/24 14:07 07/29/24 14:07 07/29/24 14:07 07/29/24 14:07 07/29/24 14:07 07/29/24 14:07 Oxygen Flow Rate (L/min) 2 Oxygen Delivery Method Nasal Cannula Weight: 142 lb 6.698 oz Body Mass Index (BMI) 30.8 Intake & Output: Intake and Output for Last 24 Hours 07/27/24 07/28/24 07/29/24 23:59 23:59 23:59 Intake Total 3410 / 3410 3070 / 3070 3316.67 / 3316.67 Output Total 1500 / 1500 2049 / 2049 Balance 1910 / 1910 1020 / 1020 3316.67 / 3316.67 Lab / Micro Data 07/29/24 06:16 07/29/24 06:16 Labs: Laboratory Results - last 24 hr 07/29/24 06:16: WBC 8.2, RBC 2.95 L, Hgb 8.8 L, Hct 27.5 L, MCV 93.2, MCH 29.8, MCHC 32.0, RDW Std Deviation 46.0 H, RDW Coeff of Alejandra 13.4, Plt Count 163, MPV 10.8, Immature Gran % (Auto) 0.600, Neut % (Auto) 71.4 H, Lymph % (Auto) 14.6 L, [place] % (Auto) 8.6, Eos % (Auto) 4.6, Baso % (Auto) 0.2, Absolute Neuts (auto) 5.9, Absolute Lymphs (auto) 1.20, Nucleated RBC % 0, Sodium 143, Potassium 2.9 L, Chloride 108, Carbon Dioxide 25.6, Anion Gap 10, BUN 13, Creatinine 0.80, Estim Creat Clear Calc 60.38, Est GFR (MDRD) Non-Af 83, BUN/Creatinine Ratio 16.4, Glucose 100 H, Calcium 8.3 Physical Exam Const alert, oriented x3 and no apparent distress Constitutional Narrative: frail General Appearance: cooperative and well developed HEENT normocephalic, head/scalp atraumatic and oropharynx normal Eyes PERRL and EOMs intact bilaterally Neck no lymphadenopathy, supple and no JVD Neck Narrative: No thyromegaly Lymph Lymphatic: no lymphadenopathy noted and no lymphedema noted Resp normal respiratory effort, normal air movement, no retractions, no use of accessory muscles and clear to auscultation bilaterally Cardio regular rate, regular rhythm, S1 normal heart sound, S2 normal heart sound and no murmurs GI GI Narrative: abdomen soft, nontender, no organomegaly. Extremity normal to inspection, normal capillary refill, no clubbing, cyanosis or edema and no calf tenderness General Extremity: no tenderness to palpation of joints or extremities Skin General Skin Exam: no breakdown Neuro moves all extremities, no focal motor deficits and no sensory deficits noted Sensorium / Orientation: awake and alert Motor Exam: strength 5/5 throughout and general weakness Psych thought process normal, cooperative and affect normal Appearance: appropriate Assessment & Plan Assessment/Plan (1) Small bowel obstruction: PLAN: Plan #Small bowel obstruction Admitted with complaint of abdominal pain and distention. CT of the abdomen showed a small bowel obstruction. Resolved. NG tube is now out and she tolerated regular diet. She has small bowel follow-through yesterday which showed no evidence of obstruction. #Fever: Patient spiked a fever today of up to 101.4. She does not have any chills, coughing or shortness of breath and has no urinary symptoms or abdominal pain. Etiology of fever is not clear as at now. P.o. Tylenol every 6 hours as needed. Will monitor and if fever persist we will get an extensive workup with cultures. #JOSE resolved. #GERD: PPI #Hypokalemia: Potassium is 2.9. Replace and trend. #History of heart failure preserved ejection fraction: Not in exacerbation. has known EF of 55% Breathing treatments bronchodilators. #COPD: Not in exacerbation. Breathing treatment with bronchodilators. #Anxiety and depression: on buspirone and amitryptiline #Hypertension: lisinopril resumed. IV hydralazine prn #Depression: on SSR. #History of migraines: stable. Not having any active migraine now. DVT prophylaxis: lovenox Charges/Coding Visit Charges Inpatient E&M: 59680 Subs Hosp L2
[2024-07-29] MEDS: Ondansetron 4 MG/2 ML Vial IV (20:24)
[2024-07-29] MEDS: Ketorolac 15 MG/ML Vial IV (20:25)
--- NOTE | 2024-07-29 21:20 | RAD_ITS ---
PROCEDURE: CHEST PA AND LATERAL 07/29/2024 REASON FOR EXAM: FEVER TECHNIQUE: Frontal and lateral views of the chest. COMPARISON: CT of the chest dated 05/17/2023 FINDINGS: Hardware: Surgical anchors project over the right humeral head. Heart: Borderline cardiomegaly Mediastinum: The mediastinal contour is unremarkable. Lungs: Bibasilar atelectasis/effusion. Infection can not be excluded. No pneumothorax. Bones: The bones are unremarkable. RAD/Chest PA and Lateral IMPRESSION: Bibasilar atelectasis/effusion. Infection can not be excluded. Reading Location: [facility]
[2024-07-29 21:44] LABS: Potassium 3.3 mmol/L (3.3-5.1)
[2024-07-29] MEDS: Atorvastatin Calcium 40 MG Tablet PO (23:00)
[2024-07-29] MEDS: Amitriptyline 100 MG Tablet 150 MG PO (23:00)
[2024-07-29] MEDS: hydrOXYzine PAM 25 MG Capsule 50 MG PO (23:00)
[2024-07-29] MEDS: traZODone 50 MG Tablet PO (23:00)
[2024-07-30] VITALS (9 sets, daily range): BP systolic 135–182; BP diastolic 83–105; PULSE 75–112; RESP 16–18; TEMP 37.3–38.6; O2SAT 88–96
[2024-07-30 02:51] LABS: Bacteria 0 SEEN /hpf (None Seen); Mucous, Urine 0 SEEN /hpf (<or=2+)
[2024-07-30 02:54] LABS: Color, Urine Straw (Yellow); Glucose, Dipstick Normal (Normal); Ketone-Dipstick Negative (Negative); Leukocyte Esterase-Dipstick Negative /ul (Negative); Nitrite-Dipstick Negative (Negative); Occult Blood-Urine 25 /ul (Negative); Protein-Dipstick 15 mg/dl (Negative); Urine Bilirubin Dipstick Negative (Negative); Urine Clarity Clear (Clear); Urine Urobilinogen Normal (Normal)
[2024-07-30 03:04] LABS: Red Blood Cells-Urine 0-5 SEEN /hpf (0-5); Squamous Epithelial Cells - UA 0-5 SEEN /hpf (5-10); White Blood Cells 0-5 SEEN /hpf (0-5)
[2024-07-30] MEDS: Ketorolac 15 MG/ML Vial IV (03:48)
[2024-07-30] MEDS: hydrALAZINE 20 MG/ML Vial 10 MG IV ×2 (03:49→21:25)
[2024-07-30 06:26] LABS: Absolute Lymphocyte Count 0.75 X10^3/uL (0.83-4.51); Absolute Neutrophil Count 8.6 X10^3/uL (2.0-7.7); Basophil# 0.03 X10^3/uL; Basophil% 0.3 % (0-1); Eosinophils% 1.9 % (0-5); Hematocrit 27.4 % (37-47); Hemoglobin 9.1 g/dL (12.0-15.0); Lymphocyte # 0.75 X10^3/ul (0.83-4.51); Mean Corp Hgb Conc 33.2 g/dL (32-36); Mean Corpuscular Volume 90.4 fL (81-99); Mean Platelet Vol. 10.6 fl (6.2-12.0); Monocyte# 1.01 X10^3/uL; Monocyte% 9.4 % (0-10); NRBC Flagged by Analyzer 0 % (0-5); Neutrophil # 8.61 X10^3/uL (2.7-7.7); Neutrophil % 80.2 % (47-70); Platelet Count 158 K/mm3 (150-450); RBC Distribution Width CV 13.6 % (11.6-14.6); Red Blood Count 3.03 M/mm3 (4.2-5.4); White Blood Count 10.7 K/mm3 (4.4-11.0)
[2024-07-30 06:48] LABS: Anion Gap 13 (5-15); BUN 10 mg/dL (4-19); BUN/Creat Ratio 11.5 RATIO (10-20); Calcium,Total 7.8 mg/dL (7.6-11.0); Carbon Dioxide 23.6 mmol/L (21.0-32.0); Chloride 106 mmol/L (98-108); EST Glomerular Filtration Rate 72 (>60); Estimated Creatinine Clearance 53.67 ml/min (50-250); Glucose 125 mg/dL (70-99); Sodium Level 143 mmol/L (133-145)
[2024-07-30] MEDS: busPIRone 5 MG Tablet 10 MG PO ×3 (06:50→21:26)
[2024-07-30] MEDS: Fluticasone 0.05% 1 SPRAY NASAL.SRY 2 SPRAY NASAL (09:12)
[2024-07-30] MEDS: 0.9% Normal Saline (1000mL) 1,000 ML 125 ML IV (09:12)
[2024-07-30] MEDS: Enoxaparin 40 MG/0.4 ML Syringe SC (09:13)
[2024-07-30] MEDS: Pantoprazole Sodium 40 MG Tablet PO (09:13)
[2024-07-30] MEDS: Furosemide 40 MG Tablet PO (09:13)
[2024-07-30] MEDS: Lisinopril 40 MG Tablet PO (09:13)
[2024-07-30] MEDS: Escitalopram Oxalate 20 MG Tablet PO (09:13)
[2024-07-30] MEDS: Pregabalin 75 MG Capsule 150 MG PO ×2 (09:15→21:25)
--- NOTE | 2024-07-30 12:12 | PN_ITS ---
Subjective Subjective Patient seen and examined. She had no active complaints. However, patient has been spiking a fever, going as high as 102F. She denied any chills, cough, shortness of breath, chest pain, abdominal pain or any urinary symptoms. Review of systems is otherwise negative. Objective Data Objective Data Vital Signs: Vital Signs Temp Pulse Resp BP Pulse Ox O2 Del Method O2 Flow Rate 99.2 F H 106 H 18 159/87 H 95 Nasal Cannula 3 07/30/24 11:14 07/30/24 11:14 07/30/24 11:14 07/30/24 11:14 07/30/24 11:14 07/30/24 11:14 07/30/24 11:14 Oxygen Flow Rate (L/min) 3 Oxygen Delivery Method Nasal Cannula Weight: 142 lb 6.698 oz Body Mass Index (BMI) 30.8 Intake & Output: Intake and Output for Last 24 Hours 07/28/24 07/29/24 07/30/24 23:59 23:59 23:59 Intake Total 3070 / 3070 4316.67 / 4316.67 2250 / 2250 Output Total 2050 / 2050 500 / 500 Balance 1020 / 1020 4316.67 / 4316.67 1750 / 1750 Lab / Micro Data 07/30/24 06:06 07/30/24 06:06 Labs: Laboratory Results - last 24 hr 07/29/24 20:40: Potassium 3.3 07/29/24 20:57: Urine Color Straw, Urine Clarity Clear, Urine pH 6.0, Ur Specific [place] 1.010, Urine Protein 15 H, Urine Glucose (UA) Normal, Urine Ketones Negative, Urine Occult Blood 25 H, Urine Nitrite Negative, Urine Bilirubin Negative, Urine Urobilinogen Normal, Ur Leukocyte Esterase Negative, Urine RBC 0-5 SEEN, Urine WBC 0-5 SEEN, Ur Squamous Epith Cells 0-5 SEEN, Urine Bacteria 0 SEEN, Urine Mucus 0 SEEN 07/30/24 06:06: WBC 10.7, RBC 3.03 L, Hgb 9.1 L, Hct 27.4 L, MCV 90.4, MCH 30.0, MCHC 33.2, RDW Std Deviation 45.0 H, RDW Coeff of Alejandra 13.6, Plt Count 158, MPV 10.6, Immature Gran % (Auto) 1.200 H, Neut % (Auto) 80.2 H, Lymph % (Auto) 7.0 L , [place] % (Auto) 9.4, Eos % (Auto) 1.9, Baso % (Auto) 0.3, Absolute Neuts (auto) 8.6 H, Absolute Lymphs (auto) 0.75 L, Nucleated RBC % 0, Sodium 143, Potassium 3.0 L, Chloride 106, Carbon Dioxide 23.6, Anion Gap 13, BUN 10, Creatinine 0.90, Estim Creat Clear Calc 53.67, Est GFR (MDRD) Non-Af 72, BUN/Creatinine Ratio 11.5, Glucose 125 H, Calcium 7.8 Radiography Diagnostic Testing: Radiology Impression Chest X-Ray 07/29/24 21:20 IMPRESSION: Bibasilar atelectasis/effusion. Infection can not be excluded. Reading [facility] Physical Exam Const alert, oriented x3 and no apparent distress Constitutional Narrative: frail General Appearance: cooperative and well developed HEENT normocephalic, head/scalp atraumatic, moist oral mucous membranes and oropharynx normal Eyes PERRL and EOMs intact bilaterally Neck no lymphadenopathy, supple and no JVD Neck Narrative: No thyromegaly Lymph Lymphatic: no lymphadenopathy noted and no lymphedema noted Resp normal respiratory effort, normal air movement, no retractions, no use of accessory muscles and clear to auscultation bilaterally Cardio regular rhythm, S1 normal heart sound, S2 normal heart sound and no murmurs Cardio Narrative: tachycardic GI GI Narrative: abdomen soft, nontender, no organomegaly. Extremity normal to inspection, normal capillary refill, no clubbing, cyanosis or edema and no calf tenderness General Extremity: no tenderness to palpation of joints or extremities Skin General Skin Exam: no breakdown Neuro CN's II-XII intact bilaterally, moves all extremities, no focal motor deficits and no sensory deficits noted Sensorium / Orientation: awake and alert Motor Exam: strength 5/5 throughout and general weakness Psych thought process normal, cooperative and affect normal Appearance: appropriate Activity / Motor Behavior: restless Assessment & Plan Assessment/Plan (1) Small bowel obstruction: PLAN: Plan #Small bowel obstruction * Admitted with complaint of abdominal pain and distention. CT of the abdomen showed a small bowel obstruction. * Resolved. NG tube is now out and she tolerated regular diet. * She has small bowel follow-through yesterday which showed no evidence of obstruction. #Fever due to gram positive bacteremia * Patient continued to spike a fever overnight. * She does not have any chills, coughing or shortness of breath and has no urinary symptoms or abdominal pain. * Chest x-ray done overnight showed bibasilar atelectasis versus effusion and infection cannot be excluded * Urinalysis showed no evidence of UTI. * blood cultures growing gram positive bacteremia * started on IV zosyn. Will add on IV vancomycin. * consult ID. 2D echo ordered to evaluated for endocarditis. * P.o. Tylenol every 6 hours as needed. * Blood cultures pending. In light of the chest x-ray findings we will start patient on IV zosyn * Check urine for strep and Legionella. * #JOSE * resolved. * #GERD: PPI #Hypokalemia: Potassium is 3. Replace and trend. #History of heart failure preserved ejection fraction: * Not in exacerbation. has known EF of 55% * Breathing treatments bronchodilators. #COPD: Not in exacerbation. Breathing treatment with bronchodilators. #Anxiety and depression: on buspirone and amitryptiline #Hypertension: lisinopril resumed. IV hydralazine prn #Depression: on SSR. #History of migraines: stable. Not having any active migraine now. DVT prophylaxis: lovenox Charges/Coding Visit Charges Inpatient E&M: 75508 Subs Hosp L2
[2024-07-30] MEDS: Potassium Chloride 10mEq/100mL 10 MEQ/100 ML IV.SOLN. 100 MEQ IV BOLUS ×4 (12:48→17:19)
--- NOTE | 2024-07-30 13:15 | ECHOCS_ITS ---
Reason For Study Reason For Study: ENDOCARDITIS Procedure This was a 2D Doppler, Color Flow transthoracic echocardiogram. The study was technically difficult. Patient was uncooperative. Contrast injection was performed. Exam performed portable in patient room. Left Ventricle Large mass noted in the LV/large papillary muscle. The estimated ejection fraction is 55-60 %. Right Ventricle Normal right ventricle. Normal systolic function. Atria Normal left atrium. Normal right atrium. Mitral Valve The mitral valve is structurally normal. No prolapse or stenosis seen. Tricuspid Valve Normal tricuspid valve. Aortic Valve The aortic valve is not well visualized in the short axis view. Pulmonic Valve The pulmonic valve is not well visualized. Great Vessels The aortic root is not well visualized. Pericardium/Pleural No pericardial effusion. Medication Diluted definity 3ml given slow IV push to enhance endocardial definition. MMode/2D Measurements & Calculations LAV(MOD-bp): 42.5 ml SV(MOD-sp4): 23.1 ml LVAd ap4: 22.5 cm2 LAV(MOD-bp) Indexed: 27.0 ml/m2 LVLd ap4: 7.1 cm SI(MOD-sp4): 14.7 ml/m2 LAV(MOD-sp2): 50.7 ml EDV(MOD-sp4): 59.5 ml LAV(MOD-sp4): 35.0 ml EDV(sp4-el): 60.7 ml LVAs ap4: 17.0 cm2 LVLs ap4: 6.8 cm ESV(MOD-sp4): 36.4 ml ESV(sp4-el): 36.1 ml EF(MOD-sp4): 38.9 % EF(sp4-el): 40.5 % SV(sp4-el): 24.6 ml LA A4 area: 16.3 cm2 RA A4 area: 8.5 cm2 Doppler Measurements & Calculations MV E max anoop: 110.6 cm/sec Ao V2 max: 162.2 cm/sec LV V1 max: 147.0 cm/sec Ao max P.5 mmHg LV V1 max P.7 mmHg Ao V2 mean: 114.6 cm/sec LV V1 mean P.8 mmHg Ao mean P.1 mmHg LV V1 mean: 99.0 cm/sec Ao V2 VTI: 22.6 cm LV V1 VTI: 21.3 cm AV (velocity ratio): 0.95 TR max anoop: 359.3 cm/sec TR max P.6 mmHg ECHO/Echo Complete W/ Contrast Interpretation Summary Large mass noted in the LV/large papillary muscle The estimated ejection fraction is 55-60 %. No previous study to compare Recommendation; consider JENNIFER evaluation Ordering Physician: Dolly Daniels Referring Physician: DALI FRAGOSO Performed By: Susanna Walker and Student
[2024-07-30] MEDS: Vancomycin HCl 1,750 MG in 0.9% Normal Saline (500mL Bag) 500 ML 250 MG IV (14:19)
--- NOTE | 2024-07-30 14:59 | PCM.RX.CS ---
Consult Antibiotic Management Pharmacy has been consulted to manage selected antibiotic: Vancomycin Type of Intervention Type of Consult: New start Suspected Infection Suspected Infection: Bacteremia Prior Doses of Antibiotics Prior Doses of Antibiotics Received/Current Regimen: 1750 mg once at 1419 on 07/30/2024 Labs Labs: Sodium 143 mmol/L (133-145) 07/30/24 06:06 Potassium 3.0 mmol/L (3.3-5.1) L 07/30/24 06:06 Chloride 106 mmol/L (98-108) 07/30/24 06:06 Carbon Dioxide 23.6 mmol/L (21.0-32.0) 07/30/24 06:06 Anion Gap 13 (5-15) 07/30/24 06:06 BUN 10 mg/dL (4-19) 07/30/24 06:06 Creatinine 0.90 mg/dL (0.70-1.20) 07/30/24 06:06 Est GFR (MDRD) Non-Af 72 (>60) 07/30/24 06:06 BUN/Creatinine Ratio 11.5 RATIO (10-20) 07/30/24 06:06 Glucose 125 mg/dL (70-99) H 07/30/24 06:06 Microbiology Microbiology: Microbiology 07/29/24 22:30 Blood Culture (Wb) - Anticubital Left Blood Culture - Preliminary 07/29/24 22:25 Blood Culture (Wb) - Right Hand Blood Culture - Preliminary Dosing Weight Weight used for dosin.6 kg Estimated Creatinine Clearance Estimated Creatinine Clearance: 53.7 ml/mi Goal Trough Goal Trough: 15-20 mcg/mL Pharmacy Plan for Drug Dosing Pharmacy Plan for Drug Dosing: NEW START IV VANCOMYCIN Consulting Physician: Frances Indication: Bacteremia Goal Trough: 15-20 SrCr: 0.9 mg/dL CrCl: 53.67 mL/min Vancomycin Dose: 750mg q12h Pharmacy Service will continue to monitor and adjust dosing as required. Follow-Up Labs Follow-Up Labs: Trough: Vancomycin Date/Time Labs Ordered Labs to be done on [date and time ordered]: Pending Level: 08/01/2024 @0200
[2024-07-30] MEDS: Acetaminophen 325 MG Tablet 650 MG PO ×2 (15:19→21:24)
[2024-07-30] MEDS: Piperacil/Tazobactam 3.375 GM in 0.9% Normal Saline (50mL MB+) 50 ML IV ×2 (17:19→21:24)
[2024-07-30] MEDS: 0.9% Saline Lock 10 ML Syringe IV (21:25)
[2024-07-30] MEDS: traZODone 50 MG Tablet PO (21:26)
[2024-07-30] MEDS: Atorvastatin Calcium 40 MG Tablet PO (21:26)
[2024-07-30] MEDS: Amitriptyline 100 MG Tablet 150 MG PO (21:28)
[2024-07-31] VITALS (7 sets, daily range): BP systolic 102–176; BP diastolic 65–106; PULSE 79–121; RESP 18–24; TEMP 36.8–39.4; O2SAT 79–95
[2024-07-31] MEDS: Vancomycin HCl 750 MG in 0.9% Normal Saline (250mL Bag) 250 ML 250 MG IV ×2 (03:00→14:03)
[2024-07-31] MEDS: 0.9% Normal Saline (1000mL) 1,000 ML 125 ML IV ×2 (06:05→14:03)
[2024-07-31 06:13] LABS: Absolute Lymphocyte Count 0.79 X10^3/uL (0.83-4.51); Absolute Neutrophil Count 6.5 X10^3/uL (2.0-7.7); Basophil# 0.04 X10^3/uL; Basophil% 0.5 % (0-1); Eosinophil# 0.02 X10^3/uL; Eosinophils% 0.2 % (0-5); Hematocrit 24.5 % (37-47); Hemoglobin 8.1 g/dL (12.0-15.0); Lymphocyte # 0.79 X10^3/ul (0.83-4.51); Lymphocyte % 9.4 % (19-41); Mean Corp Hgb Conc 33.1 g/dL (32-36); Mean Corpuscular Hgb 30.1 pg (27.0-32.0); Mean Corpuscular Volume 91.1 fL (81-99); Mean Platelet Vol. 10.7 fl (6.2-12.0); Monocyte# 0.92 X10^3/uL; Monocyte% 10.9 % (0-10); NRBC Flagged by Analyzer 0 % (0-5); Neutrophil # 6.49 X10^3/uL (2.7-7.7); Neutrophil % 77.2 % (47-70); Platelet Count 150 K/mm3 (150-450); RBC Distribution Width SD 46.5 fl (35.1-43.9); Red Blood Count 2.69 M/mm3 (4.2-5.4); White Blood Count 8.4 K/mm3 (4.4-11.0)
[2024-07-31] MEDS: Piperacil/Tazobactam 3.375 GM in 0.9% Normal Saline (50mL MB+) 50 ML IV (06:19)
[2024-07-31] MEDS: busPIRone 5 MG Tablet 10 MG PO ×3 (06:22→22:14)
[2024-07-31 06:45] LABS: Anion Gap 12 (5-15); BUN 13 mg/dL (4-19); BUN/Creat Ratio 11.7 RATIO (10-20); Calcium,Total 7.3 mg/dL (7.6-11.0); Carbon Dioxide 24.3 mmol/L (21.0-32.0); Chloride 107 mmol/L (98-108); Creatinine, Serum 1.08 mg/dL (0.70-1.20); EST Glomerular Filtration Rate 58 (>60); Estimated Creatinine Clearance 44.73 ml/min (50-250); Glucose 101 mg/dL (70-99); Potassium 2.8 mmol/L (3.3-5.1); Sodium Level 143 mmol/L (133-145)
[2024-07-31] MEDS: Pregabalin 75 MG Capsule 150 MG PO ×2 (08:39→22:12)
[2024-07-31] MEDS: Potassium Chloride Oral Tablet 20 MEQ 40 MEQ PO (08:39)
[2024-07-31] MEDS: Potassium Chloride 10mEq/100mL 10 MEQ/100 ML IV.SOLN. 100 MEQ IV BOLUS ×4 (08:40→12:04)
[2024-07-31] MEDS: Fluticasone 0.05% 1 SPRAY NASAL.SRY 2 SPRAY NASAL (08:40)
[2024-07-31] MEDS: Lisinopril 40 MG Tablet PO (08:43)
[2024-07-31] MEDS: Pantoprazole Sodium 40 MG Tablet PO (08:43)
[2024-07-31] MEDS: Furosemide 40 MG Tablet PO (08:43)
[2024-07-31] MEDS: Escitalopram Oxalate 20 MG Tablet PO (08:43)
[2024-07-31] MEDS: Enoxaparin 40 MG/0.4 ML Syringe SC (08:44)
--- NOTE | 2024-07-31 10:37 | PCM.CONS.GEN ---
Assessment & Plan Assessment/Plan (1) MRSA bacteremia: (2) Small bowel obstruction: (3) Rheumatoid arthritis: (4) Sepsis: PLAN: sepsis with JOSE, MRSA bacteremia per pcr, and h/o COPD. Suspect pulmonary source given past sputum (+) for MRSA. Concern for endocarditis with LV mass seen on TTE; will order JENNIFER and cardiology consult. May need transfer for cardiac surgery eval. Also with thoracic spine tenderness, will order MRI. Cont vanc and repeat bcx today. Will follow, thank you (5) JOSE (acute kidney injury): HPI Consult Data Date of Consult: 07/31/24 HPI Narrative Reason for Consultation: bacteremia HPI Narrative: TOMI DIA, is a 63 F with RA on methotrexate, presented 07/26 with 2 days progressive abd pain, distension, not feeling well. Sx associated with nausea. CT showed SBO. Surgery consulted. NG placed. Developed fever 07/29, bcx sent, now Mrsa (+). Denies any wounds or skin infections. Some cough. Some new back pain. Started on vanc/zosyn. TTE done and showed LV mass. Full ROS performed and neg except as noted above. [facility] Medical History CHF (congestive heart failure) Anxiety Depression Kidney disease GERD (gastroesophageal reflux disease) Former smoker On home oxygen therapy Irregular heart beat Myocardial infarct Migraines Fibromyalgia NSTEMI (non-ST elevated myocardial infarction) Hypertension Rheumatoid arthritis Bipolar 1 disorder COPD (chronic obstructive pulmonary disease) COPD (chronic obstructive pulmonary disease) Home Medications ?Medication ?Instructions ?Recorded ?Last Taken ?Type albuterol sulfate 90 mcg/actuation 2 puff inhalation Q4H PRN PRN Sob 07/26/14 06/06/17 History aerosol inhaler (ProAir HFA) &/Or Wheezing nitroglycerin 0.4 mg sublingual 0.4 mg sublingual PRN PRN CHEST 06/04/17 Unknown History tablet PAIN amitriptyline 100 mg tablet 150 mg PO QHS depresssion 10/10/22 04/30/24 History meloxicam 7.5 mg tablet 15 mg PO DAILY pain 10/10/22 04/30/24 History sumatriptan succinate 50 mg tablet 50 mg PO PRN PRN migraine headache 10/10/22 04/30/24 History ondansetron 4 mg disintegrating 4 mg PO Q8H PRN PRN Nausea #14 tabs 11/14/22 Unknown Rx tablet atorvastatin 40 mg tablet 40 mg PO QHS Cholesterol 05/11/23 04/30/24 History buspirone 5 mg tablet 10 mg PO TID Anxiety 05/11/23 04/30/24 History dexlansoprazole 60 mg 60 mg PO DAILY GERD 05/11/23 Unknown History capsule,biphase delayed release escitalopram oxalate 20 mg tablet 20 mg PO DAILY depression 05/11/23 04/30/24 History hydroxyzine HCl 50 mg tablet 50 mg PO TID PRN Anxiety 05/11/23 04/30/24 History pregabalin 25 mg capsule 150 mg PO BID Nerve pain 05/11/23 04/30/24 History tizanidine 4 mg tablet 4 mg PO Q8H PRN PRN muscle spasm 05/11/23 04/30/24 History acetaminophen 325 mg tablet 1,000 mg (3.0769 x 325 mg) PO Q8H 05/20/23 Unknown Rx PRN PRN fever/pain 1-10 #0 tabs lisinopril 40 mg tablet 40 mg PO DAILY blood pressure 06/04/23 04/30/24 History potassium chloride 20 mEq 20 meq PO DAILYCM diuretic use #30 06/06/23 04/30/24 Rx tablet,extended release(part/cryst) tabs trazodone 50 mg tablet 50 mg PO QHS insomnia 05/01/24 Unknown History albuterol sulfate 2.5 mg/3 mL 2.5 mg inhalation Q4H PRN PRN 07/26/24 Unknown History (0.083 %) solution for nebulization wheezing buspirone 10 mg tablet 10 mg PO TID mental health 07/26/24 Unknown History escitalopram oxalate 20 mg tablet 20 mg PO DAILY depression 07/26/24 Unknown History (Lexapro) fluticasone 250 mcg-salmeterol 50 1 ea inhalation BID copd 07/26/24 Unknown History mcg/dose blistr powdr for inhalation furosemide 40 mg tablet 40 mg PO DAILY water pill 07/26/24 Unknown History loperamide 2 mg capsule 2 mg PO TID PRN PRN diarrhea 07/26/24 Unknown History Allergy/AdvReac Type Severity Reaction Status Date / Time methotrexate Allergy Other Verified 07/26/24 13:29 nadolol Allergy Unknown Verified 07/26/24 13:29 prochlorperazine Allergy PT UNABLE Verified 07/26/24 13:29 TO RESPOND-NEEDS F/U baclofen AdvReac Other Verified 07/26/24 13:29 lorazepam (From Ativan) AdvReac Nausea Verified 07/26/24 13:29 propranolol AdvReac Other Verified 07/26/24 13:29 Family History Other COPD (chronic obstructive pulmonary disease) Surgical History H/O umbilical hernia repair Social History Smoking Status: Former smoker substance use type: marijuana Physical Exam Const alert and oriented x3 Constitutional Narrative: ill appearing General Appearance: cooperative HEENT normocephalic and head/scalp atraumatic Eyes PERRL and EOMs intact bilaterally Neck supple and No nodes Resp Resp Narrative: some rhonchi in bases Cardio regular rate and regular rhythm Heart Sounds: murmur GI soft to palpation GI Narrative: mild tenderness and distension Extremity General Extremity: Negative for edema Skin Skin Narrative: no splinter hemorrhages on hands or feet. Mild point tenderness to palpation over mid-T spine Neuro CN's II-XII intact bilaterally Lab / Micro Data Attestation: I reviewed the patient's lab results. 07/31/24 05:53 07/31/24 05:53 Labs: Laboratory Results - last 24 hr 07/31/24 05:53: WBC 8.4, RBC 2.69 L, Hgb 8.1 L, Hct 24.5 L, MCV 91.1, MCH 30.1, MCHC 33.1, RDW Std Deviation 46.5 H, RDW Coeff of Alejandra 14.0, Plt Count 150, MPV 10.7, Immature Gran % (Auto) 1.800 H, Neut % (Auto) 77.2 H, Lymph % (Auto) 9.4 L, Hendry % (Auto) 10.9 H, Eos % (Auto) 0.2, Baso % (Auto) 0.5, Absolute Neuts (auto) 6.5, Absolute Lymphs (auto) 0.79 L, Nucleated RBC % 0, Sodium 143, Potassium 2.8 L, Chloride 107, Carbon Dioxide 24.3, Anion Gap 12, BUN 13, Creatinine 1.08, Estim Creat Clear Calc 44.73 L, Est GFR (MDRD) Non-Af 58 L, BUN/Creatinine Ratio 11.7, Glucose 101 H, Calcium 7.3 L Micro: Microbiology 07/29/24 22:25 Blood Culture (Wb) - Right Hand Blood Culture - Final Staphylococcus aureus 07/29/24 22:30 Blood Culture (Wb) - Anticubital Left Bacteria Detection (PCR) - Final Meth. resistant Staph. aureus 07/29/24 22:30 Blood Culture (Wb) - Anticubital Left Blood Culture - Preliminary Meth. resistant Staph. aureus 07/30/24 12:50 Urine, Clean Catch Legionella Antigen - Final 07/30/24 12:50 Urine, Clean Catch Streptococcus pneumoniae Antigen (M - Final 07/30/24 12:20 Mucosa - Nasopharyngeal Respiratory Panel (PCR) - Final Imaging Radiology Impression Echocardiogram 07/30/24 13:15 Interpretation Summary Large mass noted in the LV/large papillary muscle The estimated ejection fraction is 55-60 %. No previous study to compare Recommendation; consider JENNIFER evaluation Ordering Physician: Dolly Daniels Referring Physician: DALI FRAGOSO Performed By: Susanna Walker and Student
[2024-07-31] MEDS: Acetaminophen 325 MG Tablet 650 MG PO ×2 (11:14→22:13)
--- NOTE | 2024-07-31 14:40 | PN_ITS ---
Subjective Subjective Patient seen and examined. She was lying quietly in bed. She had no active complaints. She denied any fever, chills, cough, chest pain, palpitations, dizziness, nausea vomiting or any other symptoms. Review of systems otherwise negative. 2D echo done yesterday showed a large mass on the left ventricular papillary muscle concerning for vegetation. ID on board. Objective Data Objective Data Vital Signs: Vital Signs Temp Pulse Resp BP Pulse Ox O2 Del Method O2 Flow Rate 100.3 F H 79 18 150/82 H 95 Nasal Cannula 3 07/31/24 09:00 07/31/24 09:00 07/31/24 09:00 07/31/24 09:00 07/31/24 13:11 07/31/24 13:11 07/31/24 13:11 Oxygen Flow Rate (L/min) 3 Oxygen Delivery Method Nasal Cannula Weight: 142 lb 6.698 oz Body Mass Index (BMI) 30.8 Intake & Output: Intake and Output for Last 24 Hours 07/29/24 07/30/24 07/31/24 23:59 23:59 23:59 Intake Total 4316.67 / 4316.67 4126.67 / 4126.67 3131.24 / 3131.24 Output Total 500 / 500 700 / 700 Balance 4316.67 / 4316.67 3626.67 / 3626.67 2431.24 / 2431.24 Lab / Micro Data 07/31/24 05:53 07/31/24 05:53 Labs: Laboratory Results - last 24 hr 07/31/24 05:53: WBC 8.4, RBC 2.69 L, Hgb 8.1 L, Hct 24.5 L, MCV 91.1, MCH 30.1, MCHC 33.1, RDW Std Deviation 46.5 H, RDW Coeff of Alejandra 14.0, Plt Count 150, MPV 10.7, Immature Gran % (Auto) 1.800 H, Neut % (Auto) 77.2 H, Lymph % (Auto) 9.4 L , Dixon % (Auto) 10.9 H, Eos % (Auto) 0.2, Baso % (Auto) 0.5, Absolute Neuts (auto) 6.5, Absolute Lymphs (auto) 0.79 L, Nucleated RBC % 0, Sodium 143, P otassium 2.8 L, Chloride 107, Carbon Dioxide 24.3, Anion Gap 12, BUN 13, Creatinine 1.08, Estim Creat Clear Calc 44.73 L, Est GFR (MDRD) Non-Af 58 L, BUN/Creatinine Ratio 11.7, Glucose 101 H, Calcium 7.3 L Micro: Microbiology 07/29/24 22:25 Blood Culture (Wb) - Right Hand Blood Culture - Final Staphylococcus aureus 07/29/24 22:30 Blood Culture (Wb) - Anticubital Left Bacteria Detection (PCR) - Final Meth. resistant Staph. aureus 07/29/24 22:30 Blood Culture (Wb) - Anticubital Left Blood Culture - Preliminary Meth. resistant Staph. aureus 07/30/24 12:50 Urine, Clean Catch Legionella Antigen - Final 07/30/24 12:50 Urine, Clean Catch Streptococcus pneumoniae Antigen (M - Final 07/30/24 12:20 Mucosa - Nasopharyngeal Respiratory Panel (PCR) - Final Radiography Diagnostic Testing: Radiology Impression Echocardiogram 07/30/24 13:15 Interpretation Summary Large mass noted in the LV/large papillary muscle The estimated ejection fraction is 55-60 %. No previous study to compare Recommendation; consider JENNIFER evaluation Ordering Physician: Dolly Daniels Referring Physician: DALI FRAGOSO Performed By: Susanna Walker and Student Physical Exam Const alert, oriented x3 and no apparent distress Constitutional Narrative: frail General Appearance: cooperative and well developed HEENT normocephalic, head/scalp atraumatic, moist oral mucous membranes and oropharynx normal Eyes PERRL and EOMs intact bilaterally Neck no lymphadenopathy, supple and no JVD Neck Narrative: No thyromegaly Lymph Lymphatic: no lymphadenopathy noted and no lymphedema noted Resp normal respiratory effort, normal air movement, no retractions, no use of accessory muscles and clear to auscultation bilaterally Cardio regular rate, regular rhythm, S1 normal heart sound, S2 normal heart sound and no murmurs Cardio Narrative: tachycardic GI GI Narrative: abdomen soft, nontender, no organomegaly. Extremity normal to inspection, normal capillary refill, no clubbing, cyanosis or edema and no calf tenderness General Extremity: no tenderness to palpation of joints or extremities Skin General Skin Exam: no breakdown Neuro CN's II-XII intact bilaterally, moves all extremities, no focal motor deficits and no sensory deficits noted Sensorium / Orientation: awake and alert Motor Exam: strength 5/5 throughout and general weakness Psych thought process normal, cooperative and affect normal Appearance: appropriate Activity / Motor Behavior: restless Assessment & Plan Assessment/Plan (1) Small bowel obstruction: PLAN: Plan #Small bowel obstruction * Admitted with complaint of abdominal pain and distention. CT of the abdomen showed a small bowel obstruction. * Resolved. NG tube is now out and she tolerated regular diet. * She has small bowel follow-through yesterday which showed no evidence of obstruction. 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 * Chest x-ray done overnight showed bibasilar atelectasis versus effusion and infection cannot be excluded * Urinalysis showed no evidence of UTI. * blood cultures growing gram positive bacteremia * Blood PCR showing MRSA * Vancomycin IV added on. IV Zosyn discontinued. * 2D echo showed a large mass noted on the left ventricular/papillary muscle. EF is 55 to 60%. This is concerning for infective endocarditis. * ID on board and cardiology was consulted per ID. Patient refusing a JENNIFER. She was also complaining of lower back pain so I did order thoracic MRI but patient is also refusing thoracic MRI. * Continue on IV vancomycin for now. * P.o. Tylenol every 6 hours as needed. * per ID, may need transfer to Tertiary facility for CT surgery evaluation if mass is >1cm. * #JOSE * resolved. * #GERD: PPI #Hypokalemia: potassium is 2.8. Will replace. Check magnesium. #History of heart failure preserved ejection fraction: * Not in exacerbation. has known EF of 55% * Breathing treatments bronchodilators. #COPD: Not in exacerbation. Breathing treatment with bronchodilators. #Anxiety and depression: on buspirone and amitryptiline #Hypertension: lisinopril resumed. IV hydralazine prn #Depression: on buspirone and amitryptiline. as well as lexapro #History of migraines: stable. Not having any active migraine now. DVT prophylaxis: lovenox Charges/Coding Visit Charges Inpatient E&M: 21718 Subs Hosp L3
[2024-07-31 16:45] LABS: Magnesium 1.3 mg/dL (1.5-2.2)
--- NOTE | 2024-07-31 18:21 | PCM.CONS.C ---
Assessment & Plan Assessment/Plan (1) MRSA bacteremia: (2) Small bowel obstruction: (3) JOSE (acute kidney injury): (4) Smoking greater than 20 pack years: (5) Rheumatoid arthritis: (6) COPD (chronic obstructive pulmonary disease): PLAN: Cardiac care plan; 63-year-old patient seen and evaluated in the echo department Patient has history of longstanding rheumatoid arthritis Small bowel obstruction COPD Seen and evaluated by ED and been on antibiotic for sepsis/MRSA bacteremia. On antibiotic treatment with vancomycin Seems from review of the record possible pulmonary source as patient has a positive sputum for MRSA. patient has recent transthoracic echocardiogram, LV function preserved, moderate to large size mass noted in the LV Appears as a large papillary muscle No valvular vegetation noted on the transthoracic echocardiogram. Cardiac exam essentially normal no heart murmur. Patient refused/declined evaluation by transesophageal echocardiogram. Will sign off Sam Graves MD,[facility] HPI Consult Data Date of Consult: 07/31/24 HPI Narrative Reason for Consultation: Patient with MRSA/evaluate with JENNIFER HPI Narrative: TOMI DIA, is a 63 F who presents [facility] Medical History CHF (congestive heart failure) Anxiety Depression Kidney disease GERD (gastroesophageal reflux disease) Former smoker On home oxygen therapy Irregular heart beat Myocardial infarct Migraines Fibromyalgia NSTEMI (non-ST elevated myocardial infarction) Hypertension Rheumatoid arthritis Bipolar 1 disorder COPD (chronic obstructive pulmonary disease) COPD (chronic obstructive pulmonary disease) Home Medications ?Medication ?Instructions ?Recorded ?Last Taken ?Type albuterol sulfate 90 mcg/actuation 2 puff inhalation Q4H PRN PRN Sob 07/26/14 06/06/17 History aerosol inhaler (ProAir HFA) &/Or Wheezing nitroglycerin 0.4 mg sublingual 0.4 mg sublingual PRN PRN CHEST 06/04/17 Unknown History tablet PAIN amitriptyline 100 mg tablet 150 mg PO QHS depresssion 10/10/22 04/30/24 History meloxicam 7.5 mg tablet 15 mg PO DAILY pain 10/10/22 04/30/24 History sumatriptan succinate 50 mg tablet 50 mg PO PRN PRN migraine headache 10/10/22 04/30/24 History ondansetron 4 mg disintegrating 4 mg PO Q8H PRN PRN Nausea #14 tabs 11/14/22 Unknown Rx tablet atorvastatin 40 mg tablet 40 mg PO QHS Cholesterol 05/11/23 04/30/24 History buspirone 5 mg tablet 10 mg PO TID Anxiety 05/11/23 04/30/24 History dexlansoprazole 60 mg 60 mg PO DAILY GERD 05/11/23 Unknown History capsule,biphase delayed release escitalopram oxalate 20 mg tablet 20 mg PO DAILY depression 05/11/23 04/30/24 History hydroxyzine HCl 50 mg tablet 50 mg PO TID PRN Anxiety 05/11/23 04/30/24 History pregabalin 25 mg capsule 150 mg PO BID Nerve pain 05/11/23 04/30/24 History tizanidine 4 mg tablet 4 mg PO Q8H PRN PRN muscle spasm 05/11/23 04/30/24 History acetaminophen 325 mg tablet 1,000 mg (3.0769 x 325 mg) PO Q8H 05/20/23 Unknown Rx PRN PRN fever/pain 1-10 #0 tabs lisinopril 40 mg tablet 40 mg PO DAILY blood pressure 06/04/23 04/30/24 History potassium chloride 20 mEq 20 meq PO DAILYCM diuretic use #30 06/06/23 04/30/24 Rx tablet,extended release(part/cryst) tabs trazodone 50 mg tablet 50 mg PO QHS insomnia 05/01/24 Unknown History albuterol sulfate 2.5 mg/3 mL 2.5 mg inhalation Q4H PRN PRN 07/26/24 Unknown History (0.083 %) solution for nebulization wheezing buspirone 10 mg tablet 10 mg PO TID mental health 07/26/24 Unknown History escitalopram oxalate 20 mg tablet 20 mg PO DAILY depression 07/26/24 Unknown History (Lexapro) fluticasone 250 mcg-salmeterol 50 1 ea inhalation BID copd 07/26/24 Unknown History mcg/dose blistr powdr for inhalation furosemide 40 mg tablet 40 mg PO DAILY water pill 07/26/24 Unknown History loperamide 2 mg capsule 2 mg PO TID PRN PRN diarrhea 07/26/24 Unknown History Allergy/AdvReac Type Severity Reaction Status Date / Time methotrexate Allergy Other Verified 07/26/24 13:29 nadolol Allergy Unknown Verified 07/26/24 13:29 prochlorperazine Allergy PT UNABLE Verified 07/26/24 13:29 TO RESPOND-NEEDS F/U baclofen AdvReac Other Verified 07/26/24 13:29 lorazepam (From Ativan) AdvReac Nausea Verified 07/26/24 13:29 propranolol AdvReac Other Verified 07/26/24 13:29 Family History Other COPD (chronic obstructive pulmonary disease) Surgical History H/O umbilical hernia repair Social History Smoking Status: Former smoker substance use type: marijuana Physical Exam Cardio Cardio Narrative: Patient seen evaluated and examined in the echo department She declined JENNIFER. Cardiac exam S1-S2 is regular Chest exam, mildly diminished air entry bilateral. Risk Stratification Risk Stratification Applicable: No Objective Data Vital Signs: Vital Signs Temp Pulse Resp BP Pulse Ox O2 Del Method O2 Flow Rate 98.9 F 86 18 128/86 H 95 Nasal Cannula 3 07/31/24 15:00 07/31/24 15:00 07/31/24 15:00 07/31/24 15:00 07/31/24 15:00 07/31/24 15:00 07/31/24 15:00 Oxygen Flow Rate (L/min) 3 Oxygen Delivery Method Nasal Cannula Weight: 142 lb 6.698 oz Body Mass Index (BMI) 30.8 Intake & Output: Intake and Output for Last 24 Hours 07/29/24 07/30/24 07/31/24 23:59 23:59 23:59 Intake Total 4316.67 / 4316.67 4126.67 / 4126.67 3848.32 / 3848.32 Output Total 500 / 500 700 / 700 Balance 4316.67 / 4316.67 3626.67 / 3626.67 3148.32 / 3148.32 Lab / Micro Data 07/31/24 05:53 07/31/24 05:53 Labs: Laboratory Results - last 24 hr 07/31/24 05:53: WBC 8.4, RBC 2.69 L, Hgb 8.1 L, Hct 24.5 L, MCV 91.1, MCH 30.1, MCHC 33.1, RDW Std Deviation 46.5 H, RDW Coeff of Alejandra 14.0, Plt Count 150, MPV 10.7, Immature Gran % (Auto) 1.800 H, Neut % (Auto) 77.2 H, Lymph % (Auto) 9.4 L, Crawford % (Auto) 10.9 H, Eos % (Auto) 0.2, Baso % (Auto) 0.5, Absolute Neuts (auto) 6.5, Absolute Lymphs (auto) 0.79 L, Nucleated RBC % 0, Sodium 143, Potassium 2.8 L, Chloride 107, Carbon Dioxide 24.3, Anion Gap 12, BUN 13, Creatinine 1.08, Estim Creat Clear Calc 44.73 L, Est GFR (MDRD) Non-Af 58 L, BUN/Creatinine Ratio 11.7, Glucose 101 H, Calcium 7.3 L, Magnesium 1.3 L Micro: Microbiology 07/29/24 22:25 Blood Culture (Wb) - Right Hand Blood Culture - Final Staphylococcus aureus 07/29/24 22:30 Blood Culture (Wb) - Anticubital Left Bacteria Detection (PCR) - Final Meth. resistant Staph. aureus 07/29/24 22:30 Blood Culture (Wb) - Anticubital Left Blood Culture - Preliminary Meth. resistant Staph. aureus 07/30/24 12:50 Urine, Clean Catch Legionella Antigen - Final 07/30/24 12:50 Urine, Clean Catch Streptococcus pneumoniae Antigen (M - Final 07/30/24 12:20 Mucosa - Nasopharyngeal Respiratory Panel (PCR) - Final Cardiology Labs/Tests 07/31/24 05:53: WBC 8.4, RBC 2.69 L, Hgb 8.1 L, Hct 24.5 L, MCV 91.1, MCH 30.1, MCHC 33.1, Plt Count 150, MPV 10.7, Immature Gran % (Auto) 1.800 H, Neut % (Auto) 77.2 H, Lymph % (Auto) 9.4 L, Crawford % (Auto) 10.9 H, Eos % (Auto) 0.2, Baso % (Auto) 0.5, Absolute Neuts (auto) 6.5, Nucleated RBC % 0, Sodium 143, Potassium 2.8 L, Chloride 107, Carbon Dioxide 24.3, Anion Gap 12, BUN 13, Creatinine 1.08, Est GFR (MDRD) Non-Af 58 L, BUN/Creatinine Ratio 11.7, Glucose 101 H, Calcium 7.3 L, Magnesium 1.3 L Rhythm: EKG: ECHO: Stress Test: Cardiac Cath: PCI: CT Surgery: Holter monitor: EPS: PPM: CXR: Chest CT Scan:
--- NOTE | 2024-07-31 19:53 | NURSING ---
Significant other, Trey, said if she refuses tests again, to give him a call. (Contact number listed in [facility].) He said she can be beyond stubborn, but give me a call and I can talk some sense into her.
[2024-07-31] MEDS: 0.9% Saline Lock 10 ML Syringe IV (22:12)
[2024-07-31] MEDS: Atorvastatin Calcium 40 MG Tablet PO (22:12)
[2024-07-31] MEDS: Amitriptyline 100 MG Tablet 150 MG PO (22:13)
[2024-07-31] MEDS: traZODone 50 MG Tablet PO (22:15)
[2024-08-01] VITALS (11 sets, daily range): BP systolic 117–165; BP diastolic 78–130; PULSE 82–126; RESP 16–24; TEMP 36–39.4; O2SAT 90–96
[2024-08-01 02:14] LABS: Absolute Lymphocyte Count 0.86 X10^3/uL (0.83-4.51); Absolute Neutrophil Count 6.9 X10^3/uL (2.0-7.7); Basophil# 0.01 X10^3/uL; Basophil% 0.1 % (0-1); Eosinophil# 0.02 X10^3/uL; Eosinophils% 0.2 % (0-5); Hematocrit 23.1 % (37-47); Hemoglobin 7.3 g/dL (12.0-15.0); Lymphocyte # 0.86 X10^3/ul (0.83-4.51); Lymphocyte % 10.2 % (19-41); Mean Corp Hgb Conc 31.6 g/dL (32-36); Mean Corpuscular Hgb 29.4 pg (27.0-32.0); Mean Corpuscular Volume 93.1 fL (81-99); Mean Platelet Vol. 10.9 fl (6.2-12.0); Monocyte# 0.55 X10^3/uL; Monocyte% 6.5 % (0-10); NRBC Flagged by Analyzer 0 % (0-5); Neutrophil # 6.86 X10^3/uL (2.7-7.7); Neutrophil % 81.5 % (47-70); POSITIVE MORPHOLOGY YES; Platelet Count 173 K/mm3 (150-450); RBC Distribution Width CV 14.4 % (11.6-14.6); RBC Distribution Width SD 48.7 fl (35.1-43.9); Red Blood Count 2.48 M/mm3 (4.2-5.4); White Blood Count 8.4 K/mm3 (4.4-11.0)
[2024-08-01 02:23] LABS: Differential Indicated SCAN CRITERIA MET
[2024-08-01 02:28] LABS: Vancomycin, Trough Level 17.5 ug/mL (5.0-15.0)
--- NOTE | 2024-08-01 02:38 | PHA.PHARE_ITS ---
Consult Antibiotic Management Pharmacy has been consulted to manage selected antibiotic: Vancomycin Type of Intervention Type of Consult: Follow-up Suspected Infection Suspected Infection: Bacteremia Labs Labs: Vancomycin Trough 17.5 ug/mL (5.0-15.0) H 08/01/24 01:50 Microbiology Microbiology: Microbiology 07/29/24 22:25 Blood Culture (Wb) - Right Hand Blood Culture - Final Staphylococcus aureus 07/29/24 22:30 Blood Culture (Wb) - Anticubital Left Bacteria Detection (PCR) - Final Meth. resistant Staph. aureus 07/29/24 22:30 Blood Culture (Wb) - Anticubital Left Blood Culture - Preliminary Meth. resistant Staph. aureus 07/30/24 12:50 Urine, Clean Catch Legionella Antigen - Final 07/30/24 12:50 Urine, Clean Catch Streptococcus pneumoniae Antigen (M - Final 07/30/24 12:20 Mucosa - Nasopharyngeal Respiratory Panel (PCR) - Final Pharmacy Plan for Drug Dosing Pharmacy Plan for Drug Dosing: VANCOMYCIN LEVEL RECEIVED Current Vancomycin Dose: 750MG Q12 Number of Doses Received: 3 Vancomycin Level: 17.5 mg/dL Hours Since Last Dose: 12 Renal Function: SCr 1.08 mg/dL, CrCl 45mL/min Renal Function Trend: stable Lab/Micro: mrsa bacteremia Vancomycin Plan/Comments: 12 hour trough is therapeutic at 17.5mg/dL (goal 15- 20). Will continue current dosing and get a level in 2 days. Pending Level: 08/03/24 @ 0200 Pharmacy Service will continue to monitor and adjust dosing as required.
[2024-08-01] MEDS: Vancomycin HCl 750 MG in 0.9% Normal Saline (250mL Bag) 250 ML 250 MG IV ×2 (03:06→14:51)
[2024-08-01] MEDS: Vancomycin Trough/Random Due 1 LAB MC (03:07)
[2024-08-01 03:13] LABS: Anion Gap 13 (5-15); BUN 16 mg/dL (4-19); BUN/Creat Ratio 12.6 RATIO (10-20); Calcium,Total 7.3 mg/dL (7.6-11.0); Carbon Dioxide 20.6 mmol/L (21.0-32.0); Chloride 110 mmol/L (98-108); Creatinine, Serum 1.29 mg/dL (0.70-1.20); EST Glomerular Filtration Rate 47 (>60); Estimated Creatinine Clearance 37.45 ml/min (50-250); Glucose 142 mg/dL (70-99); Potassium 3.3 mmol/L (3.3-5.1); Sodium Level 143 mmol/L (133-145)
[2024-08-01 03:41] LABS: Atypical Lymphocyte RARE %; Differential Comment SCANNED
[2024-08-01] MEDS: busPIRone 5 MG Tablet 10 MG PO ×2 (05:12→13:48)
--- NOTE | 2024-08-01 07:58 | PN.HOSP_ITS ---
Reason for Visit Reason for Visit: Diagnoses Sepsis, unspecified organism (07/26/24) Methicillin resistant Staphylococcus aureus infection as the cause of diseases classified elsewhere (07/26/24) Nicotine dependence, cigarettes, uncomplicated (07/26/24) Chronic obstructive pulmonary disease, unspecified (07/26/24) Unspecified intestinal obstruction, unspecified as to partial versus complete obstruction (07/26/24) Rheumatoid arthritis, unspecified (07/26/24) Acute kidney failure, unspecified (07/26/24) Bacteremia (07/26/24) Objective Data Objective Data Vital Signs: Vital Signs Temp Pulse Resp BP Pulse Ox O2 Del Method O2 Flow Rate 98.8 F 84 20 H 144/89 H 96 Nasal Cannula 3 08/01/24 03:11 08/01/24 03:11 08/01/24 03:11 08/01/24 03:11 08/01/24 03:11 08/01/24 03:11 08/01/24 03:11 Oxygen Flow Rate (L/min) 3 Oxygen Delivery Method Nasal Cannula Weight: 142 lb 6.698 oz Body Mass Index (BMI) 30.8 Intake & Output: Intake and Output for Last 24 Hours 07/30/24 07/31/24 08/01/24 23:59 23:59 23:59 Intake Total 4126.67 / 4126.67 3848.32 / 3948.32 415 / 415 Output Total 500 / 500 700 / 700 425 / 425 Balance 3626.67 / 3626.67 3148.32 / 3248.32 -10 / -10 Lab / Micro Data 08/01/24 01:50 08/01/24 01:50 Labs: Laboratory Results - last 24 hr 07/31/24 05:53: Magnesium 1.3 L 08/01/24 01:50: WBC 8.4, RBC 2.48 L, Hgb 7.3 L, Hct 23.1 L, MCV 93.1, MCH 29.4, MCHC 31.6 L, RDW Std Deviation 48.7 H, RDW Coeff of Alejandra 14.4, Plt Count 173, MPV 10.9, Immature Gran % (Auto) 1.500 H, Neut % (Auto) 81.5 H, Lymph % (Auto) 10.2 L, [place] % (Auto) 6.5, Eos % (Auto) 0.2, Baso % (Auto) 0.1, Absolute Neuts (auto) 6.9, Absolute Lymphs (auto) 0.86, Nucleated RBC % 0, Differential Comment SCANNED, Atypical Lymphocytes RARE, Sodium 143, Potassium 3.3, Chloride 110 H, C arbon Dioxide 20.6 L, Anion Gap 13, BUN 16, Creatinine 1.29 H, Estim Creat Clear Calc 37.45 L, Est GFR (MDRD) Non-Af 47 L, BUN/Creatinine Ratio 12.6, Glucose 142 H, Calcium 7.3 L, Vancomycin Trough 17.5 H Micro: Microbiology 07/29/24 22:25 Blood Culture (Wb) - Right Hand Blood Culture - Final Staphylococcus aureus 07/29/24 22:30 Blood Culture (Wb) - Anticubital Left Bacteria Detection (PCR) - Final Meth. resistant Staph. aureus 07/29/24 22:30 Blood Culture (Wb) - Anticubital Left Blood Culture - Preliminary Meth. resistant Staph. aureus 07/30/24 12:50 Urine, Clean Catch Legionella Antigen - Final 07/30/24 12:50 Urine, Clean Catch Streptococcus pneumoniae Antigen (M - Final 07/30/24 12:20 Mucosa - Nasopharyngeal Respiratory Panel (PCR) - Final Physical Exam Narrative Seen and examined. Patient in mild short of breath and tachycardic, 126/min, RR 24/min. Repeat blood Tmax 103.0 Fahrenheit. Patient looks dehydrated with dry parched buccal mucosa. Patient is still using the nasal dark yellow/mustard colored. 1 L IV fluid Ringer lactate ordered. Physical exam General: Mild lethargic. HEENT: Atraumatic, PERRLA, EOMI, Normocephalic. Oral: No Gingival or Mucosal Lesions/ Ulcerations Neck: Supple, No JVD, Negative Carotid Bruits Chest wall/Lungs: Air entry diminished in bilateral lung bases. Mild bilateral wheezing Cardiovascular: Sinus tachycardic, Normal S1,S2, No M/G/R Abdomen: Bowel Sounds Present, Soft, Non Tender, Non-Distended : No dysuria. No renal angle tenderness. No suprapubic tenderness. Extremities: Swelling and tenderness of the right antecubital region. No axillary lymph node palpable. No pedal edema Skin: Redness over right antecubital region, possible superficial thrombophlebitis, IV line Musculoskeletal: No Tenderness to Palpation of Joints or Extremities Neurological: Cranial nerves II-XII grossly intact, DTR 2+/4. No acute focal neurological deficit. Psych/Mental Status: Flat affect Assessment & Plan Assessment/Plan (1) Small bowel obstruction: PLAN: Plan #Small bowel obstruction * Admitted with complaint of abdominal pain and distention. CT of the abdomen showed a small bowel obstruction. * Resolved. NG tube is now out and she tolerated regular diet. * She has small bowel follow-through yesterday which showed no evidence of obstruction. 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 * Chest x-ray done overnight showed bibasilar atelectasis versus effusion and infection cannot be excluded * Urinalysis showed no evidence of UTI. * blood cultures growing gram positive bacteremia * Blood PCR showing MRSA * Vancomycin IV added on. IV Zosyn discontinued. * 2D echo showed a large mass noted on the left ventricular/papillary muscle. EF is 55 to 60%. This is concerning for infective endocarditis. * ID on board and cardiology was consulted per ID. Patient refusing a JENNIFER. She was also complaining of lower back pain so I did order thoracic MRI but patient is also refusing thoracic MRI. * Continue on IV vancomycin for now. * P.o. Tylenol every 6 hours as needed. * per ID, may need transfer to Tertiary facility for CT surgery evaluation if mass is >1cm. 07/14: Patient is tachycardic 126, tachypneic, febrile, BP 144/130. 1 L Ringer lactate ordered. Monitor intake and output. DuoNeb ordered. Tylenol. Patient on IV antibiotic. Plan for JENNIFER on Saturday. Severe anemia: H&H 7.3/21%. Dropped from 9.1 g on 07/30. MCV normal. Probably inflammatory #JOSE * resolved. * #GERD: PPI #Hypokalemia: potassium is 2.8. Will replace. Check magnesium. #History of heart failure preserved ejection fraction: * Not in exacerbation. has known EF of 55% * Breathing treatments bronchodilators. #COPD: 08/01: Patient has shortness of breath, wheezing and dyspnea, possible COPD exacerbation. Scheduled DuoNeb and IV Solu-Medrol ordered. #Anxiety and depression: on buspirone and amitryptiline #Hypertension: lisinopril resumed. IV hydralazine prn #Depression: on buspirone and amitryptiline. as well as lexapro #History of migraines: stable. Not having any active migraine now. DVT prophylaxis: lovenox Charges/Coding Visit Charges Inpatient E&M: 56859 Subs Hosp L2
[2024-08-01] MEDS: Acetaminophen 325 MG Tablet 650 MG PO (09:19)
[2024-08-01] MEDS: Lactated Ringers 1,000 ML 999 ML IV (09:19)
[2024-08-01] MEDS: Enoxaparin 40 MG/0.4 ML Syringe SC (09:21)
[2024-08-01] MEDS: Fluticasone 0.05% 1 SPRAY NASAL.SRY 2 SPRAY NASAL (09:21)
[2024-08-01] MEDS: Lisinopril 40 MG Tablet PO (09:22)
[2024-08-01] MEDS: Pantoprazole Sodium 40 MG Tablet PO (09:22)
[2024-08-01] MEDS: Escitalopram Oxalate 20 MG Tablet PO (09:22)
--- NOTE | 2024-08-01 09:53 | VDUE_ITS ---
Reason For Study Reason For Study: Right arm pain Right Proximal Left Proximal Right jugular vein is spontaneous, widely patent, Left jugular vein is spontaneous, widely patent, phasic, with no intraluminal echogenicity noted. phasic, with no intraluminal echogenicity noted. Right subclavian vein is spontaneous, widely patent, Left subclavian vein is spontaneous, widely patent, phasic, with no intraluminal echogenicity noted. phasic, with no intraluminal echogenicity noted. Right Lower Arm Left Arm Right radial vein is compressible. Left axillary vein is spontaneous, patent, phasic, Right ulnar vein is compressible. competent, compressible and demonstrates Right Arm augmentation. Right axillary vein is spontaneous, patent, phasic, Left brachial vein is compressible. competent, compressible and demonstrates Left cephalic vein is compressible. augmentation. Basilic vein is compressible, PICC line noted. Right brachial vein is compressible. Left Lower Arm Acute superficial vein thrombosis is noted in the Left radial vein is compressible. right cephalic vein from distal bicep to wrist and Left ulnar vein is compressible. median cubital vein. It is NONCOMPRESSIBLE and dialted. Right basilic vein is compressible. Procedure This was a bilateral upper extremity venous doppler examination. Exam performed portable in patient room. A preliminary report was called and/or faxed to Meagan SILVA. VL/Venous Duplex US - [place] Extrem Interpretation Summary Deep veins of the upper extremities are bilaterally patent and compressible seg mentally. There is no evidence of deep vein thrombosis on either side. Acute superficial thrombophlebitis is noted in the right median cubital vein and the right cephalic vein from the distal bicep to the wrist. The right basilic vein is patent and compressible.The left basilic and cephalic veins are patent and compressible. A PICC catheter is visi ble in the left basilic vein. Ordering Physician: Sid Hillman Referring Physician: Amalia Rice Performed By: Fanny Perez RVT ???
[2024-08-01] MEDS: Pregabalin 75 MG Capsule 150 MG PO ×2 (10:48→21:54)
[2024-08-01] MEDS: BACITRACIN 15 GM Tube 1 APPLIC TOPICAL ×2 (10:52→21:53)
[2024-08-01] MEDS: KCL 20MEQ in D5.45NS 20 MEQ/1,000 ML IV.SOLN. 75 MEQ IV (10:59)
[2024-08-01] MEDS: 0.9% Saline Lock 10 ML Syringe IV ×3 (11:05→21:54)
--- NOTE | 2024-08-01 12:52 | EKG12_ITS ---
Test Reason : ARYTHMIA Blood Pressure : */* mmHG Vent. Rate : 102 BPM Atrial Rate : 102 BPM P-R Int : 130 ms QRS Dur : 80 ms QT Int : 354 ms P-R-T Axes : 57 60 63 degrees QTcB Int : 461 ms Sinus tachycardia Otherwise normal ECG When compared with ECG of 01-May-2024 11:31, No significant change was found Confirmed by Fareed Maxwell ([id number]), brands editor GUSTAVO VICENTE ([id number]) on 08/04/2024 8:05:33 AM Referred By: RAMONITA Confirmed By: Fareed Maxwell
--- NOTE | 2024-08-01 14:55 | CT_ITS ---
PROCEDURE: SPINE THORACIC WITH CONTRAST REASON FOR EXAM: LOWER BACK PAIN TECHNIQUE: Thoracic spine CT with intravenous contrast. Coronal and Sagittal reconstruction series were provided. One or more dose reduction techniques were used (e.g., Automated exposure control, adjustment of the mA and/or kV according to patient size, use of iterative reconstruction technique). RADIATION DOSE SUMMARY: DLP: 848.40 mGycm COMPARISON: None. FINDINGS: Alignment: Mildly exaggerated thoracic kyphosis. Bones: [id number] discogenic degenerative changes of the visualized spine. Soft Tissues: Moderate right and small left pleural effusions. Right basilar density and right apical ground-glass opacities suspicious for infection. Left apical nodular density also suspicious for infection. CT/Spine Thoracic WITH Contrast IMPRESSION: No acute osseous abnormalities. Spondylosis. Exaggerated kyphosis. Bilateral pleural effusions. Right basilar density and right apical ground-glass opacities suspicious for in fection. Left apical micronodular opacities which may represent infection. Follow-up to resolution is recommended to exclude a neoplastic process. Reading Location: [id number]
--- NOTE | 2024-08-01 14:55 | CT_ITS ---
PROCEDURE: CHEST WITH CONTRAST 08/01/2024 REASON FOR EXAM: FEVER OF UNKNOWN SOURCE TECHNIQUE: Prone and supine chest CT with intravenous contrast, high resolution CT (HRCT) protocol. Coronal and Sagittal reconstruction series were provided. CONTRAST: Isovue 370 VOLUME: 97 mL Gauge IV One or more dose reduction techniques were used (e.g., Automated exposure control, adjustment of the mA and/or kV according to patient size, use of iterative reconstruction technique). RADIATION DOSE SUMMARY: CTDlvol: 31.54 mGy DLP: 2473.64 mGycm COMPARISON: 05/17/2023. FINDINGS: Hardware: None. Lymph nodes: Prominent mediastinal lymph nodes. Heart and Vasculature: No visualized coronary artery calcifications. Lungs and Airways: Moderate right and small left pleural effusions. Right lower lobe density with enhancement greater than paraspinal musculature favoring atelectasis. Trace left atelectasis. Both have progressed since the prior CT. Lingular subpleural 4.7 x 1.9 cm mass abutting the mediastinum, similar in size. Adjacent nodular densities which are similar in size. Since 1 in the left lung apex measures 11 mm. Right apical ground-glass opacity which is similar to the prior. Upper Abdomen: Distended gallbladder. Bones: Degenerative changes of the spine. CT/Chest WITH Contrast IMPRESSION: Bilateral pleural effusions with associated atelectasis which have progressed s lino prior CT. Left lung mass in and nodular densities which are similar to the prior CT. Right lung ground-glass opacities which are similar to the prior CT. Details above. Reading Location: [place] [id number]
--- NOTE | 2024-08-01 14:55 | CT_ITS ---
PROCEDURE: SPINE LUMBAR WITH CONTRAST REASON FOR EXAM: LOWER THORACIC PAIN . TECHNIQUE: Lumbar spine CT with contrast. One or more dose reduction techniques were used (e.g., Automated exposure control, adjustment of the mA and/or kV according to patient size, use of iterative reconstruction technique). RADIATION DOSE SUMMARY: DLP: 1026.79 mGycm COMPARISON: None. FINDINGS: Vertebrae: No evidence acute fracture or dislocation. No abnormal enhancement. Alignment: L1-2: No significant central or neural foraminal stenosis. L2-3: No significant central neural foraminal stenosis. L3-4: No significant central or neural foraminal stenosis. L4-5: Grade 1 anterolisthesis, disc bulging common facet arthropathy resulting in severe central stenosis. Moderate bilateral neural foraminal stenosis. L5-S1: Mild disc bulging and facet arthropathy without significant central or neural foraminal stenosis. Degenerative changes of the sacroiliac joints. CT/Spine Lumbar WITH Contrast IMPRESSION: L4-5 spondylosis and spondylolisthesis. Details above. No definite abnormal enhancement. Reading Location: [place] [id number]
--- NOTE | 2024-08-01 15:04 | PCM.PN.CARD ---
Subjective Subjective Seen and evaluated at bedside along with the nursing staff Febrile Tachycardic Objective Data Vital Signs: Vital Signs Temp Pulse Resp BP Pulse Ox O2 Del Method O2 Flow Rate 99.2 F H 92 22 H 165/107 H 93 Nasal Cannula 3 08/01/24 14:45 08/01/24 14:45 08/01/24 14:45 08/01/24 14:45 08/01/24 14:45 08/01/24 14:45 08/01/24 14:45 Oxygen Flow Rate (L/min) 3 Oxygen Delivery Method Nasal Cannula Weight: 142 lb 6.698 oz Body Mass Index (BMI) 30.8 Intake & Output: Intake and Output for Last 24 Hours 07/30/24 07/31/24 08/01/24 23:59 23:59 23:59 Intake Total 4126.67 / 4126.67 3848.32 / 3948.32 1915 / 1915 Output Total 500 / 500 700 / 700 550 / 550 Balance 3626.67 / 3626.67 3148.32 / 3248.32 1365 / 1365 Lab / Micro Data 08/01/24 01:50 08/01/24 01:50 Labs: Laboratory Results - last 24 hr 07/31/24 05:53: Magnesium 1.3 L 08/01/24 01:50: WBC 8.4, RBC 2.48 L, Hgb 7.3 L, Hct 23.1 L, MCV 93.1, MCH 29.4, MCHC 31.6 L, RDW Std Deviation 48.7 H, RDW Coeff of Alejandra 14.4, Plt Count 173, MPV 10.9, Immature Gran % (Auto) 1.500 H, Neut % (Auto) 81.5 H, Lymph % (Auto) 10.2 L, [place] % (Auto) 6.5, Eos % (Auto) 0.2, Baso % (Auto) 0.1, Absolute Neuts (auto) 6.9, Absolute Lymphs (auto) 0.86, Nucleated RBC % 0, Differential Comment SCANNED, Atypical Lymphocytes RARE, Sodium 143, Potassium 3.3, Chloride 110 H, Carbon Dioxide 20.6 L, Anion Gap 13, BUN 16, Creatinine 1.29 H, Estim Creat Clear Calc 37.45 L, Est GFR (MDRD) Non-Af 47 L, BUN/Creatinine Ratio 12.6, Glucose 142 H, Calcium 7.3 L, C-React Prot Ext Range 300.00 H, Vancomycin Trough 17.5 H Micro: Microbiology 07/29/24 22:30 Blood Culture (Wb) - Anticubital Left Bacteria Detection (PCR) - Final Meth. resistant Staph. aureus 07/29/24 22:30 Blood Culture (Wb) - Anticubital Left Blood Culture - Final Meth. resistant Staph. aureus Cardiology Labs/Tests 07/31/24 05:53: Magnesium 1.3 L 08/01/24 01:50: WBC 8.4, RBC 2.48 L, Hgb 7.3 L, Hct 23.1 L, MCV 93.1, MCH 29.4, MCHC 31.6 L, Plt Count 173, MPV 10.9, Immature Gran % (Auto) 1.500 H, Neut % (Auto) 81.5 H, Lymph % (Auto) 10.2 L, [place] % (Auto) 6.5, Eos % (Auto) 0.2, Baso % (Auto) 0.1, Absolute Neuts (auto) 6.9, Nucleated RBC % 0, Sodium 143, Potassium 3.3, Chloride 110 H, Carbon Dioxide 20.6 L, Anion Gap 13, BUN 16, Creatinine 1.29 H, Est GFR (MDRD) Non-Af 47 L, BUN/Creatinine Ratio 12.6, Glucose 142 H, Calcium 7.3 L Rhythm: EKG: ECHO: Stress Test: Cardiac Cath: PCI: CT Surgery: Holter monitor: EPS: PPM: CXR: Chest CT Scan: Physical Exam Cardio Cardio Narrative: Cardiac exam S1-S2 is regular No systolic or diastolic murmur Chest examination diminished air entry bilateral with mild bilateral wheeze. Abdomen soft nontender and distended Lower extremity no lower extremity edema Assessment & Plan Assessment/Plan (1) Sepsis: (2) MRSA bacteremia: (3) JOSE (acute kidney injury): (4) Small bowel obstruction: (5) COPD (chronic obstructive pulmonary disease): PLAN: 63-year-old patient with the MRSA bacteremia. Evidently patient developed fever for 2 days spiking fever and the chest x-ray showed bilateral atelectasis blood culture growing gram-positive bacteremia with a PCR showing MRSA Patient has been on vancomycin IV And has been seen and followed by the ID. Transthoracic echocardiogram showed enlarged LV mass which is a large papillary muscle. Incidental finding In cardiac consultation requested by the ID as patient has MRSA bacteremia to assess for endocarditis. Evidently patient declined the JENNIFER on Saturday. Cardiac care plan; I discussed with the medical team and patient agreeable for JENNIFER on Saturday And patient to be transferred to the progressive care unit for monitoring/telemetry Will continue to monitor and follow-up clinically.
--- NOTE | 2024-08-01 15:21 | NURSING ---
Report called to Maren SILVA the receiving nurse, informed she is going to CT scan first then to PCu and ABG's have been ordered.
--- NOTE | 2024-08-01 15:54 | NURSING ---
pt transported w/ tele monitor to CT by this nurse and LOT ASSOCIATE. pt transferred to PCU. Charge nurse updated patient arrived, no lunchroom monitor in room and family bedside. Sewing Machine Operator Paper Bags on unit updated patient in new room.
--- NOTE | 2024-08-01 16:01 | PN.HOSP_ITS ---
Hospitalist Note Patient was seen and examined in afternoon in PCU. She is more awake and alert. ABG is pending. On 3 L of oxygen. She had 450 mL urine output since morning. Blood pressure 165/107. On IV hydralazine as needed. IV labetalol as needed ordered. CT thoracic lumbar and CT chest are pending. Microbiology Past 72 Hours 07/29/24 22:30 Blood Culture (Wb) - Anticubital Left Bacteria Detection (PCR) - Final Meth. resistant Staph. aureus 07/29/24 22:30 Blood Culture (Wb) - Anticubital Left Blood Culture - Final Meth. resistant Staph. aureus 07/29/24 22:25 Blood Culture (Wb) - Right Hand Blood Culture - Final Staphylococcus aureus 07/30/24 12:50 Urine, Clean Catch Legionella Antigen - Final 07/30/24 12:50 Urine, Clean Catch Streptococcus pneumoniae Antigen (M - Final 07/30/24 12:20 Mucosa - Nasopharyngeal Respiratory Panel (PCR) - Final Laboratory Results 07/31/24 05:53: Magnesium 1.3 L 08/01/24 01:50: WBC 8.4, RBC 2.48 L, Hgb 7.3 L, Hct 23.1 L, MCV 93.1, MCH 29.4, MCHC 31.6 L, RDW Std Deviation 48.7 H, RDW Coeff of Alejandra 14.4, Plt Count 173, MPV 10.9, Immature Gran % (Auto) 1.500 H, Neut % (Auto) 81.5 H, Lymph % (Auto) 10.2 L, [place] % (Auto) 6.5, Eos % (Auto) 0.2, Baso % (Auto) 0.1, Absolute Neuts (auto) 6.9, Absolute Lymphs (auto) 0.86, Nucleated RBC % 0, Differential Comment SCANNED, Atypical Lymphocytes RARE, Sodium 143, Potassium 3.3, Chloride 110 H, Carbon Dioxide 20.6 L, Anion Gap 13, BUN 16, Creatinine 1.29 H, Estim Creat Clear Calc 37.45 L, Est GFR (MDRD) Non-Af 47 L, BUN/Creatinine Ratio 12.6, Glucose 142 H, Calcium 7.3 L, C-React Prot Ext Range 300.00 H, Vancomycin Trough 17.5 H
[2024-08-01 16:38] LABS: Allen Test Positive; Base Excess 1 mmol/L (-2 to +2); Bicarbonate 24.9 mmol/L (22-26); Blood Gas Specimen Type ART; Mode Not entered; O2 Delivery Device Cannula; PO2 90 mmHG (75-100); SITE R Brach; SO2 98 % (95-99); Total Carbon Dioxide 26 mmol/L; pCO2 33.1 mmHg (35-45); pH 7.48 (7.35-7.45)
[2024-08-01] MEDS: Piperacil/Tazobactam 3.375 GM in 0.9% Normal Saline (50mL MB+) 50 ML IV ×2 (17:44→22:18)
[2024-08-01 17:48] LABS: Magnesium 1.3 mg/dL (1.5-2.2)
[2024-08-01] MEDS: Magnesium Sulfate 4gm/100mL 4 GM/100 ML IV.SOLN. IV (21:14)
[2024-08-01] MEDS: Atorvastatin Calcium 40 MG Tablet PO (21:53)
[2024-08-01] MEDS: Amitriptyline 100 MG Tablet 150 MG PO (21:53)
[2024-08-01] MEDS: busPIRone 5 MG Tablet PO (21:54)
[2024-08-01] MEDS: Rizatriptan Benzoate 10 MG Tablet PO (21:54)
[2024-08-01] MEDS: traZODone 50 MG Tablet PO (21:54)
[2024-08-02] MEDS: Vancomycin HCl 750 MG in 0.9% Normal Saline (250mL Bag) 250 ML 250 MG IV ×2 (02:43→13:28)
[2024-08-02 02:55] VITALS: BP 160/94; PULSE 84; RESP 18; TEMP 36.8; O2SAT 95
[2024-08-02] MEDS: Piperacil/Tazobactam 3.375 GM in 0.9% Normal Saline (50mL MB+) 50 ML IV ×3 (05:07→20:34)
[2024-08-02] MEDS: BACITRACIN 15 GM Tube 1 APPLIC TOPICAL ×3 (05:08→20:35)
[2024-08-02] MEDS: busPIRone 5 MG Tablet PO ×3 (05:08→20:34)
[2024-08-02 05:51] LABS: Absolute Lymphocyte Count 1.02 X10^3/uL (0.83-4.51); Absolute Neutrophil Count 10.4 X10^3/uL (2.0-7.7); Basophil# 0.04 X10^3/uL; Basophil% 0.3 % (0-1); Hemoglobin 8.9 g/dL (12.0-15.0); Lymphocyte # 1.02 X10^3/ul (0.83-4.51); Lymphocyte % 8.5 % (19-41); Mean Corp Hgb Conc 31.8 g/dL (32-36); Mean Corpuscular Hgb 29.3 pg (27.0-32.0); Mean Corpuscular Volume 92.1 fL (81-99); Monocyte# 0.43 X10^3/uL; Monocyte% 3.6 % (0-10); NRBC Flagged by Analyzer 0.2 % (0-5); Neutrophil # 10.41 X10^3/uL (2.7-7.7); Neutrophil % 86.5 % (47-70); POSITIVE MORPHOLOGY YES; Platelet Count 261 K/mm3 (150-450); RBC Distribution Width CV 14.3 % (11.6-14.6); RBC Distribution Width SD 48.2 fl (35.1-43.9); Red Blood Count 3.04 M/mm3 (4.2-5.4)
[2024-08-02 06:28] LABS: Differential Indicated SCAN CRITERIA MET
[2024-08-02 06:31] LABS: Anion Gap 14 (5-15); BUN 18 mg/dL (4-19); BUN/Creat Ratio 13.9 RATIO (10-20); Calcium,Total 8.3 mg/dL (7.6-11.0); Carbon Dioxide 20.8 mmol/L (21.0-32.0); Chloride 108 mmol/L (98-108); Creatinine, Serum 1.32 mg/dL (0.70-1.20); EST Glomerular Filtration Rate 45 (>60); Glucose 170 mg/dL (70-99); Potassium 3.1 mmol/L (3.3-5.1); Sodium Level 143 mmol/L (133-145)
[2024-08-02 07:10] VITALS: O2SAT 96
[2024-08-02 08:11] VITALS: BP 178/108; PULSE 93; RESP 20; TEMP 36.6; O2SAT 93
[2024-08-02] MEDS: Escitalopram Oxalate 20 MG Tablet PO (08:13)
[2024-08-02] MEDS: Enoxaparin 40 MG/0.4 ML Syringe SC (08:13)
[2024-08-02] MEDS: Fluticasone 0.05% 1 SPRAY NASAL.SRY 2 SPRAY NASAL (08:14)
[2024-08-02] MEDS: Pantoprazole Sodium 40 MG Tablet PO (08:14)
[2024-08-02] MEDS: Lisinopril 40 MG Tablet PO (08:14)
[2024-08-02] MEDS: Pregabalin 75 MG Capsule 150 MG PO ×2 (08:18→20:35)
[2024-08-02] MEDS: Ensure Plus High Protein 120 ML LIQUID PO ×3 (08:18→17:30)
[2024-08-02] MEDS: Acetaminophen 325 MG Tablet 650 MG PO (11:39)
[2024-08-02] MEDS: Rizatriptan Benzoate 10 MG Tablet PO (12:14)
[2024-08-02] MEDS: Potassium Chloride Oral Tablet 20 MEQ 40 MEQ PO ×2 (12:15→15:00)
--- NOTE | 2024-08-02 12:23 | PCM.PN.CARD ---
Objective Data Vital Signs: Vital Signs Temp Pulse Resp BP Pulse Ox O2 Del Method O2 Flow Rate 97.8 F 93 20 H 178/108 H 93 Nasal Cannula 3 08/02/24 08:11 08/02/24 08:11 08/02/24 08:11 08/02/24 08:11 08/02/24 08:11 08/02/24 08:41 08/02/24 08:41 Oxygen Flow Rate (L/min) 3 Oxygen Delivery Method Nasal Cannula Weight: 142 lb 6.698 oz Body Mass Index (BMI) 30.8 Intake & Output: Intake and Output for Last 24 Hours 07/31/24 08/01/24 08/02/24 23:59 23:59 23:59 Intake Total 3848.32 / 3948.32 3195.83 / 3195.83 693.75 / 693.75 Output Total 700 / 700 1000 / 1000 Balance 3148.32 / 3248.32 2195.83 / 2195.83 693.75 / 693.75 Lab / Micro Data 08/02/24 05:28 08/02/24 05:28 Labs: Laboratory Results - last 24 hr 08/01/24 17:03: Magnesium 1.3 L 08/02/24 05:28: WBC 12.0 H, RBC 3.04 L, Hgb 8.9 L, Hct 28.0 L, MCV 92.1, MCH 29.3, MCHC 31.8 L, RDW Std Deviation 48.2 H, RDW Coeff of Alejandra 14.3, Plt Count 261, MPV 11.0, Immature Gran % (Auto) 1.100 H, Neut % (Auto) 86.5 H, Lymph % (Auto) 8.5 L, [place] % (Auto) 3.6, Eos % (Auto) 0.0, Baso % (Auto) 0.3, Absolute Neuts (auto) 10.4 H, Absolute Lymphs (auto) 1.02, Nucleated RBC % 0.2, Differential Comment , Sodium 143, Potassium 3.1 L, Chloride 108, Carbon Dioxide 20.8 L, Anion Gap 14, BUN 18, Creatinine 1.32 H, Estim Creat Clear Calc 36.60 L, Est GFR (MDRD) Non-Af 45 L, BUN/Creatinine Ratio 13.9, Glucose 170 H, Calcium 8.3 Micro: Microbiology 07/29/24 22:30 Blood Culture (Wb) - Anticubital Left Bacteria Detection (PCR) - Final Meth. resistant Staph. aureus 07/29/24 22:30 Blood Culture (Wb) - Anticubital Left Blood Culture - Final Meth. resistant Staph. aureus ABG Data ABG results: ABG 08/01/24 16:34 Specimen Type ART Sample Site R Brach pH 7.48 H Bicarbonate Actual 24.9 Total CO2 26 Base Excess 1 O2 Saturation 98 O2 % 3.0 ABG pCO2 33.1 L ABG pO2 90 Kei Test Positive O2 Delivery Device Cannula Vent Mode Not entered Cardiology Labs/Tests 08/01/24 16:34: pH 7.48 H, Bicarbonate Actual 24.9, Base Excess 1, O2 Saturation 98, ABG pCO2 33.1 L, ABG pO2 90, Kei Test Positive 08/01/24 17:03: Magnesium 1.3 L 08/02/24 05:28: WBC 12.0 H, RBC 3.04 L, Hgb 8.9 L, Hct 28.0 L, MCV 92.1, MCH 29.3, MCHC 31.8 L, Plt Count 261, MPV 11.0, Immature Gran % (Auto) 1.100 H, Neut % (Auto) 86.5 H, Lymph % (Auto) 8.5 L, [place] % (Auto) 3.6, Eos % (Auto) 0.0, Baso % (Auto) 0.3, Absolute Neuts (auto) 10.4 H, Nucleated RBC % 0.2, Sodium 143, Potassium 3.1 L, Chloride 108, Carbon Dioxide 20.8 L, Anion Gap 14, BUN 18, Creatinine 1.32 H, Est GFR (MDRD) Non-Af 45 L, BUN/Creatinine Ratio 13.9, Glucose 170 H, Calcium 8.3 Rhythm: EKG: ECHO: Stress Test: Cardiac Cath: PCI: CT Surgery: Holter monitor: EPS: PPM: CXR: Chest CT Scan: Radiography Diagnostic Testing: Radiology Impression Chest CT 08/01/24 14:55 IMPRESSION: Bilateral pleural effusions with associated atelectasis which have progressed since prior CT. Left lung mass in and nodular densities which are similar to the prior CT. Right lung ground-glass opacities which are similar to the prior CT. Details above. Reading Location: [id number] Lumbar [address] 08/01/24 14:55 IMPRESSION: L4-5 spondylosis and spondylolisthesis. Details above. No definite abnormal enhancement. Reading Location: [id number] 08/01/24 14:55 IMPRESSION: No acute osseous abnormalities. Spondylosis. Exaggerated kyphosis. Bilateral pleural effusions. Right basilar density and right apical ground-glass opacities suspicious for infection. Left apical micronodular opacities which may represent infection. Follow-up to resolution is recommended to exclude a neoplastic process. Reading Location: [id number] Physical Exam Cardio Cardio Narrative: Seen and evaluated at bedside The lunchroom monitor showed normal sinus Cardiac exam S1-S2 is regular Chest exam is clear auscultation bilateral Patient declined to be evaluated with JENNIFER. I discussed the need for evaluation and she insisted to refuse the JENNIFER evaluation. Assessment & Plan Assessment/Plan (1) JOSE (acute kidney injury): (2) Small bowel obstruction: (3) Smoking greater than 20 pack years: (4) COPD (chronic obstructive pulmonary disease): (5) HTN (hypertension): (6) MRSA bacteremia: PLAN: 63-year-old patient seen and evaluated at bedside today. Feeling better not in acute distress. Patient has anemia with a hemoglobin of 7.3 hematocrit 23.1 platelet count within normal She has MRSA bacteremia Etiology is not identified Cardiac care plan; Incidental finding of enlarged papillary muscle and LV On review of the transthoracic echocardiogram there is no valvular vegetation. ID seen the patient and started on antibiotic with vancomycin, I discussed need for evaluation by JENNIFER patient declined JENNIFER Will continue to follow-up clinically.
--- NOTE | 2024-08-02 13:49 | CPS ---
Pt doesn't want scheduled aerosols, says they make her sick to her stomach. This RT will contact about possibly d/c'ing aeosols.
--- NOTE | 2024-08-02 13:49 | CPS ---
Pt continues to refuse aerosols, PEP & IS.
--- NOTE | 2024-08-02 13:59 | PN.HOSP_ITS ---
Reason for Visit Reason for Visit: Diagnoses Sepsis, unspecified organism (07/26/24) Methicillin resistant Staphylococcus aureus infection as the cause of diseases classified elsewhere (07/26/24) Nicotine dependence, cigarettes, uncomplicated (07/26/24) Essential (primary) hypertension (07/26/24) Chronic obstructive pulmonary disease, unspecified (07/26/24) Unspecified intestinal obstruction, unspecified as to partial versus complete obstruction (07/26/24) Rheumatoid arthritis, unspecified (07/26/24) Acute kidney failure, unspecified (07/26/24) Bacteremia (07/26/24) Objective Data Objective Data Vital Signs: Vital Signs Temp Pulse Resp BP Pulse Ox O2 Del Method O2 Flow Rate 97.8 F 93 20 H 178/108 H 93 Nasal Cannula 3 08/02/24 08:11 08/02/24 08:11 08/02/24 08:11 08/02/24 08:11 08/02/24 08:11 08/02/24 08:41 08/02/24 08:41 Oxygen Flow Rate (L/min) 3 Oxygen Delivery Method Nasal Cannula Weight: 142 lb 6.698 oz Body Mass Index (BMI) 30.8 Intake & Output: Intake and Output for Last 24 Hours 07/31/24 08/01/24 08/02/24 23:59 23:59 23:59 Intake Total 3848.32 / 3948.32 3195.83 / 3195.83 693.75 / 693.75 Output Total 700 / 700 1000 / 1000 Balance 3148.32 / 3248.32 2195.83 / 2195.83 693.75 / 693.75 Lab / Micro Data 08/02/24 05:28 08/02/24 05:28 Labs: Laboratory Results - last 24 hr 08/01/24 17:03: Magnesium 1.3 L 08/02/24 05:28: WBC 12.0 H, RBC 3.04 L, Hgb 8.9 L, Hct 28.0 L, MCV 92.1, MCH 29.3, MCHC 31.8 L, RDW Std Deviation 48.2 H, RDW Coeff of Alejandra 14.3, Plt Count 261, MPV 11.0, Immature Gran % (Auto) 1.100 H, Neut % (Auto) 86.5 H, Lymph % (Auto) 8.5 L, [place] % (Auto) 3.6, Eos % (Auto) 0.0, Baso % (Auto) 0.3, Absolute Neuts (auto) 10.4 H, Absolute Lymphs (auto) 1.02, Nucleated RBC % 0.2, Differential Comment , Sodium 143, Potassium 3.1 L, Chloride 108, Carbon Dioxide 20.8 L, Anion Gap 14, BUN 18, Creatinine 1.32 H, Estim Creat Clear Calc 36.60 L, Est GFR (MDRD) Non-Af 45 L, BUN/Creatinine Ratio 13.9, Glucose 170 H, Calcium 8.3 Micro: Microbiology 07/29/24 22:30 Blood Culture (Wb) - Anticubital Left Bacteria Detection (PCR) - Final Meth. resistant Staph. aureus 07/29/24 22:30 Blood Culture (Wb) - Anticubital Left Blood Culture - Final Meth. resistant Staph. aureus 07/29/24 22:25 Blood Culture (Wb) - Right Hand Blood Culture - Final Staphylococcus aureus 07/30/24 12:50 Urine, Clean Catch Legionella Antigen - Final 07/30/24 12:50 Urine, Clean Catch Streptococcus pneumoniae Antigen (M - Final 07/30/24 12:20 Mucosa - Nasopharyngeal Respiratory Panel (PCR) - Final ABG Data ABG results: ABG 08/01/24 16:34 Specimen Type ART Sample Site R Brach pH 7.48 H Bicarbonate Actual 24.9 Total CO2 26 Base Excess 1 O2 Saturation 98 O2 % 3.0 ABG pCO2 33.1 L ABG pO2 90 Kei Test Positive O2 Delivery Device Cannula Vent Mode Not entered Radiography Diagnostic Testing: Radiology Impression Chest CT 08/01/24 14:55 IMPRESSION: Bilateral pleural effusions with associated atelectasis which have progressed since prior CT. Left lung mass in and nodular densities which are similar to the prior CT. Right lung ground-glass opacities which are similar to the prior CT. Details above. Reading Location: [id number] Lumbar [address] 08/01/24 14:55 IMPRESSION: L4-5 spondylosis and spondylolisthesis. Details above. No definite abnormal enhancement. Reading Location: [place] [id number] 08/01/24 14:55 IMPRESSION: No acute osseous abnormalities. Spondylosis. Exaggerated kyphosis. Bilateral pleural effusions. Right basilar density and right apical ground-glass opacities suspicious for infection. Left apical micronodular opacities which may represent infection. Follow-up to resolution is recommended to exclude a neoplastic process. Reading Location: [place] [id number] Physical Exam Narrative Seen and examined. She looks better than yesterday. No fever today. Tmax 99 Fahrenheit yesterday evening. Anxiety and tranquilizer medications were decreased yesterday Physical exam General: Awake and alert. HEENT: Atraumatic, PERRLA, EOMI, Normocephalic. Oral: No Gingival or Mucosal Lesions/ Ulcerations Neck: Supple, No JVD, Negative Carotid Bruits Chest wall/Lungs: Air entry diminished in bilateral lung bases. Mild bilateral wheezing Cardiovascular: Sinus tachycardic, Normal S1,S2, No M/G/R Abdomen: Bowel Sounds Present, Soft, Non Tender, Non-Distended : No dysuria. No renal angle tenderness. No suprapubic tenderness. Extremities: Swelling and tenderness of the right antecubital region. No axillary lymph node palpable. No pedal edema Skin: Redness over right antecubital region, possible superficial thrombophlebitis, IV line Musculoskeletal: No Tenderness to Palpation of Joints or Extremities Neurological: Cranial nerves II-XII grossly intact, DTR 2+/4. No acute focal neurological deficit. Psych/Mental Status: Flat affect Assessment & Plan Assessment/Plan (1) Small bowel obstruction: PLAN: Plan #Small bowel obstruction * Admitted with complaint of abdominal pain and distention. CT of the abdomen showed a small bowel obstruction. * Resolved. NG tube is now out and she tolerated regular diet. * She has small bowel follow-through yesterday which showed no evidence of obstruction. #Probable infective endocarditis due to MRSA bacteremia or source unclear * Patient developed a fever 2 days ago and Spiking fever. * Chest x-ray done overnight showed bibasilar atelectasis versus effusion and infection cannot be excluded * Urinalysis showed no evidence of UTI. * blood cultures growing gram positive bacteremia * Blood PCR showing MRSA * Vancomycin IV added on. IV Zosyn discontinued. * 2D echo showed a large mass noted on the left ventricular/papillary muscle. EF is 55 to 60%. This is concerning for infective endocarditis. * ID on board and cardiology was consulted per ID. Patient refusing a JENNIFER. She was also complaining of lower back pain so I did order thoracic MRI but patient is also refusing thoracic MRI. * Continue on IV vancomycin for now. * P.o. Tylenol every 6 hours as needed. * per ID, may need transfer to Tertiary facility for CT surgery evaluation if mass is >1cm. 07/14: Patient is tachycardic 126, tachypneic, febrile, BP 144/130. 1 L Ringer lactate ordered. Monitor intake and output. DuoNeb ordered. Tylenol. Patient on IV antibiotic. Plan for JENNIFER on Saturday. 08/02: No fever since last evening. Overall she is more awake and alert. On [address] chest with IV contrast shows moderate bilateral pleural effusion with atelectasis, left lingular subpleural 4.7 x 1.9 cm mass abutting the mediastinum similar in size. Right apical groundglass opacity similar to prior. Right lung groundglass opacities. Thoracic spine shows no acute osseous abnormality, chronic spondylosis/exaggerated kyphosis with bilateral pleural effusion. Lumbar spine CT L4-5 spondylosis and a spondylolisthesis. No definite abnormal enhancement. Therefore, thoracic and lumbar spine does not show focus of infection. ID follow-up tomorrow a.m. Plan for JENNIFER tomorrow Severe anemia: H&H 7.3/21%. Dropped from 9.1 g on 07/30. MCV normal. Probably inflammatory #JOSE * resolved. * #GERD: PPI #Hypokalemia: potassium is 2.8. Will replace. Check magnesium. #History of heart failure preserved ejection fraction: * Not in exacerbation. has known EF of 55% * Breathing treatments bronchodilators. #COPD: 08/01: Patient has shortness of breath, wheezing and dyspnea, possible COPD exacerbation. Scheduled DuoNeb and IV Solu-Medrol ordered. #Anxiety and depression: on buspirone and amitryptiline #Hypertension: lisinopril resumed. IV hydralazine prn #Depression: on buspirone and amitryptiline. as well as lexapro #History of migraines: stable. Not having any active migraine now. DVT prophylaxis: lovenox Clinical Impression(s) from Imaging Studies Abdomen/Pelvis CT 07/26/24 16:40 IMPRESSION: 1. Diffuse dilation of the small bowel, with the transition point within the distal duodenum within the left upper quadrant. No pneumoperitoneum. 2. Diffuse hepatic steatosis. 3. Stable bibasilar consolidations. Reading Location: [facility] KUB X-Ray 07/26/24 18:50 IMPRESSION: Interval gastric tube placement as described. Reading Location: [facility] Small Bowel X-Ray 07/28/24 07:10 IMPRESSION: No evidence of small-bowel obstruction at this time. Large amount of fecal material is seen in the colon. Reading Location: [facility] Chest X-Ray 07/29/24 21:20 IMPRESSION: Bibasilar atelectasis/effusion. Infection can not be excluded. Reading Location: [facility] Echocardiogram 07/30/24 13:15 Interpretation Summary Large mass noted in the LV/large papillary muscle The estimated ejection fraction is 55-60 %. No previous study to compare Recommendation; consider JENNIFER evaluation Ordering Physician: Dolly Daniels Referring Physician: DALI FRAGOSO Performed By: Susanna Walker and Student Chest CT 08/01/24 14:55 IMPRESSION: Bilateral pleural effusions with associated atelectasis which have progressed since prior CT. Left lung mass in and nodular densities which are similar to the prior CT. Right lung ground-glass opacities which are similar to the prior CT. Details above. Reading Location: [id number] Lumbar [address] 08/01/24 14:55 IMPRESSION: L4-5 spondylosis and spondylolisthesis. Details above. No definite abnormal enhancement. Reading Location: [id number] 08/01/24 14:55 IMPRESSION: No acute osseous abnormalities. Spondylosis. Exaggerated kyphosis. Bilateral pleural effusions. Right basilar density and right apical ground-glass opacities suspicious for infection. Left apical micronodular opacities which may represent infection. Follow-up to resolution is recommended to exclude a neoplastic process. Reading Location: [id number] Charges/Coding Visit Charges Inpatient E&M: 97406 Subs Hosp L2
[2024-08-02 14:20] VITALS: BP 171/82; PULSE 93; RESP 16; TEMP 37.3; O2SAT 95
[2024-08-02 14:51] VITALS: O2SAT 95
[2024-08-02] MEDS: Atorvastatin Calcium 40 MG Tablet PO (20:34)
[2024-08-02] MEDS: traZODone 50 MG Tablet PO (20:34)
[2024-08-02] MEDS: Amitriptyline 100 MG Tablet 150 MG PO (20:35)
[2024-08-02 20:45] VITALS: BP 156/95; PULSE 95; RESP 18; TEMP 36.1; O2SAT 98
[2024-08-03] VITALS (10 sets, daily range): BP systolic 158–198; BP diastolic 92–121; PULSE 87–101; RESP 16–20; TEMP 36.5–37.1; O2SAT 93–98
[2024-08-03 02:53] LABS: Vancomycin, Trough Level 20.5 ug/mL (5.0-15.0)
--- NOTE | 2024-08-03 02:58 | PHA.PHARE_ITS ---
Consult Antibiotic Management Pharmacy has been consulted to manage selected antibiotic: Vancomycin Type of Intervention Type of Consult: Follow-up Labs Labs: Sodium 143 mmol/L (133-145) 08/02/24 05:28 Potassium 3.1 mmol/L (3.3-5.1) L 08/02/24 05:28 Chloride 108 mmol/L (98-108) 08/02/24 05:28 Carbon Dioxide 20.8 mmol/L (21.0-32.0) L 08/02/24 05:28 Anion Gap 14 (5-15) 08/02/24 05:28 BUN 18 mg/dL (4-19) 08/02/24 05:28 Creatinine 1.32 mg/dL (0.70-1.20) H 08/02/24 05:28 Est GFR (MDRD) Non-Af 45 (>60) L 08/02/24 05:28 BUN/Creatinine Ratio 13.9 RATIO (10-20) 08/02/24 05:28 Glucose 170 mg/dL (70-99) H 08/02/24 05:28 Vancomycin Trough 20.5 ug/mL (5.0-15.0) H 08/03/24 01:54 Microbiology Microbiology: Microbiology 07/31/24 09:55 Blood Culture (Wb) - Right Hand Blood Culture - Preliminary No growth in 48 hours. 07/29/24 22:30 Blood Culture (Wb) - Anticubital Left Bacteria Detection (PCR) - Final Meth. resistant Staph. aureus 07/29/24 22:30 Blood Culture (Wb) - Anticubital Left Blood Culture - Final Meth. resistant Staph. aureus 07/29/24 22:25 Blood Culture (Wb) - Right Hand Blood Culture - Final Staphylococcus aureus 07/30/24 12:50 Urine, Clean Catch Legionella Antigen - Final 07/30/24 12:50 Urine, Clean Catch Streptococcus pneumoniae Antigen (M - Fin al 07/30/24 12:20 Mucosa - Nasopharyngeal Respiratory Panel (PCR) - Final Goal Trough Goal Trough: 15-20 mcg/mL Pharmacy Plan for Drug Dosing Pharmacy Plan for Drug Dosing: Pharmacy Service will continue to monitor and adjust dosing as required. TROGH 20.5 @ 12.5 HOURS. HOLD DOSE AND DRAW RANDOM LEVEL IN 6 HOURS Follow-Up Labs Follow-Up Labs: Trough: Vancomycin Date/Time Labs Ordered Labs to be done on [date and time ordered]: 08/03 @ 0812
[2024-08-03 04:16] LABS: Absolute Neutrophil Count 7.7 X10^3/uL (2.0-7.7); Eosinophil# 0.01 X10^3/uL; Eosinophils% 0.1 % (0-5); Hematocrit 22.9 % (37-47); Hemoglobin 7.4 g/dL (12.0-15.0); Lymphocyte % 13.4 % (19-41); Mean Corp Hgb Conc 32.3 g/dL (32-36); Mean Corpuscular Volume 89.8 fL (81-99); Mean Platelet Vol. 10.5 fl (6.2-12.0); Monocyte# 0.68 X10^3/uL; NRBC Flagged by Analyzer 0.2 % (0-5); Neutrophil # 7.65 X10^3/uL (2.7-7.7); Neutrophil % 78.6 % (47-70); Platelet Count 250 K/mm3 (150-450); RBC Distribution Width CV 14.3 % (11.6-14.6); RBC Distribution Width SD 46.9 fl (35.1-43.9); Red Blood Count 2.55 M/mm3 (4.2-5.4); White Blood Count 9.7 K/mm3 (4.4-11.0)
[2024-08-03 04:46] LABS: Anion Gap 10 (5-15); BUN 26 mg/dL (4-19); BUN/Creat Ratio 21.5 RATIO (10-20); Calcium,Total 8.3 mg/dL (7.6-11.0); Carbon Dioxide 22.6 mmol/L (21.0-32.0); Chloride 108 mmol/L (98-108); EST Glomerular Filtration Rate 51 (>60); Estimated Creatinine Clearance 40.25 ml/min (50-250); Glucose 143 mg/dL (70-99); Potassium 3.8 mmol/L (3.3-5.1); Sodium Level 141 mmol/L (133-145)
[2024-08-03] MEDS: Piperacil/Tazobactam 3.375 GM in 0.9% Normal Saline (50mL MB+) 50 ML IV (05:08)
--- NOTE | 2024-08-03 09:06 | PN.HOSP_ITS ---
Reason for Visit Reason for Visit: Diagnoses Sepsis, unspecified organism (07/26/24) Methicillin resistant Staphylococcus aureus infection as the cause of diseases classified elsewhere (07/26/24) Nicotine dependence, cigarettes, uncomplicated (07/26/24) Essential (primary) hypertension (07/26/24) Chronic obstructive pulmonary disease, unspecified (07/26/24) Unspecified intestinal obstruction, unspecified as to partial versus complete obstruction (07/26/24) Rheumatoid arthritis, unspecified (07/26/24) Acute kidney failure, unspecified (07/26/24) Bacteremia (07/26/24) Subjective Subjective Feeling well. Tolerating PO. Objective Data Objective Data Vital Signs: Vital Signs Temp Pulse Resp BP Pulse Ox O2 Del Method O2 Flow Rate 36.5 C L 87 18 158/94 H 96 Nasal Cannula 3 08/03/24 03:00 08/03/24 03:00 08/03/24 03:00 08/03/24 03:00 08/03/24 03:00 08/03/24 03:00 08/03/24 03:00 Oxygen Flow Rate (L/min) 3 Oxygen Delivery Method Nasal Cannula Weight: 64.6 kg Body Mass Index (BMI) 30.8 Intake & Output: Intake and Output for Last 24 Hours 08/01/24 08/02/24 08/03/24 23:59 23:59 23:59 Intake Total 3195.83 / 3195.83 1657.92 / 1657.92 50 / 50 Output Total 1000 / 1000 Balance 2195.83 / 2195.83 1657.92 / 1657.92 50 / 50 Lab / Micro Data 08/03/24 03:57 08/03/24 03:57 Labs: Laboratory Results - last 24 hr 08/03/24 01:54: Vancomycin Trough 20.5 H 08/03/24 03:57: WBC 9.7, RBC 2.55 L, Hgb 7.4 L, Hct 22.9 L, MCV 89.8, MCH 29.0, MCHC 32.3, RDW Std Deviation 46.9 H, RDW Coeff of Alejandra 14.3, Plt Count 250, MPV 10.5, Immature Gran % (Auto) 0.900, Neut % (Auto) 78.6 H, Lymph % (Auto) 13.4 L, [place] % (Auto) 7.0, Eos % (Auto) 0.1, Baso % (Auto) 0.0, Absolute Neuts (auto) 7.7, Absolute Lymphs (auto) 1.30, Nucleated RBC % 0.2, Sodium 141, Potassium 3.8, Chloride 108, Carbon Dioxide 22.6, Anion Gap 10, BUN 26 H, Creatinine 1.20, Estim Creat Clear Calc 40.25 L, Est GFR (MDRD) Non-Af 51 L, BUN/Creatinine Ratio 21.5 H, Glucose 143 H, Calcium 8.3 Micro: Microbiology 07/31/24 09:55 Blood Culture (Wb) - Right Hand Blood Culture - Preliminary No growth in 48 hours. 07/29/24 22:30 Blood Culture (Wb) - Anticubital Left Bacteria Detection (PCR) - Final Meth. resistant Staph. aureus 07/29/24 22:30 Blood Culture (Wb) - Anticubital Left Blood Culture - Final Meth. resistant Staph. aureus 07/29/24 22:25 Blood Culture (Wb) - Right Hand Blood Culture - Final Staphylococcus aureus 07/30/24 12:50 Urine, Clean Catch Legionella Antigen - Final 07/30/24 12:50 Urine, Clean Catch Streptococcus pneumoniae Antigen (M - Final 07/30/24 12:20 Mucosa - Nasopharyngeal Respiratory Panel (PCR) - Final Physical Exam Const alert and no apparent distress Constitutional Narrative: up at the side of bed eating lunch. HEENT head/scalp atraumatic and moist oral mucous membranes Resp normal respiratory effort, no retractions, no use of accessory muscles and clear to auscultation bilaterally Cardio regular rate, regular rhythm, S1 normal heart sound and S2 normal heart sound GI normal to inspection, nondistended, normoactive bowel sounds, soft to palpation, non-tender and non-distended Neuro Sensorium / Orientation: awake, alert, oriented to person, oriented to place and oriented to time Psych affect normal Assessment & Plan Assessment/Plan (1) Small bowel obstruction: PLAN: Symptoms began around the . CAT scan showed diffuse dilation of the small bowel with transition point within the distal duodenum. Since resolved. (2) MRSA bacteremia: PLAN: No clear criteria met for sepsis. Pt declined JENNIFER. TTE showed what was previously thought to be a vegetation, but cardiology feels that it is an enlarged papillar muscle and LV. No vegetation seen. No spinal lesions on CT lumbar and thoracic spines. BCx negative on thus far (3) Pleural effusion: PLAN: noted on CT. Appears rather small. Would recommend holding off on thoracentesis at this time as I feel the risks outweigh the benefits at this time. However, would still reimage in 4-6 weeks to see if changed. If worse, then would consider thoracentesis at that time. PLAN: Plan Chronic conditions * Heart failure: HFpEF (EF between 55% from June 2017) currently compensated. Holding off on furosemide for now. * Hypertension: Stable. Olding off on lisinopril for this time as patient is n.p.o. * History of migraines: Supportive management at this time. No active migraine. Consider IV/SQ triptans if necessary. * Depression: Holding off on SSRIs for now. VTE prophylaxis with enoxaparin CODE STATUS: Addressed with the patient. Patient wishes to be full code. Charges/Coding Visit Charges Inpatient E&M: 69816 Subs Hosp L2
[2024-08-03] MEDS: Vancomycin Trough/Random Due 1 LAB MC (09:21)
--- NOTE | 2024-08-03 09:22 | PCM.PN.ID ---
Physical Exam Narrative Feeling a little better, no fever overnight. No n/v/d. Reports chronic upper back pain. Const alert and no apparent distress Resp Auscultation: diminished lung sounds Cardio regular rate and regular rhythm GI soft to palpation, non-tender and non-distended Skin no rashes or lesions noted ID ID: Route of nutrition/ use of supplements: [] Nutritional Intake: [] IV Site: [] Byrne Catheter: [] Assessment & Plan Assessment/Plan (1) MRSA bacteremia: (2) Small bowel obstruction: (3) Rheumatoid arthritis: (4) Sepsis: PLAN: sepsis with JOSE, MRSA bacteremia per pcr, and h/o COPD. Suspect pulmonary source given past sputum (+) for MRSA. Concern for endocarditis with LV mass seen on TTE; pt now agrees to JENNIFER. CT with moderate R effusion, may need thoracentesis to help with source control. Will stop zosyn, cont vanc. Will follow (5) JOSE (acute kidney injury):
[2024-08-03 09:27] LABS: Vancomycin, Random Level 18.2 ug/mL (0.0-15.0)
--- NOTE | 2024-08-03 09:53 | PCM.RX.CS ---
Consult Antibiotic Management Pharmacy has been consulted to manage selected antibiotic: Vancomycin Type of Intervention Type of Consult: Follow-up Labs Labs: Sodium 141 mmol/L (133-145) 08/03/24 03:57 Potassium 3.8 mmol/L (3.3-5.1) 08/03/24 03:57 Chloride 108 mmol/L (98-108) 08/03/24 03:57 Carbon Dioxide 22.6 mmol/L (21.0-32.0) 08/03/24 03:57 Anion Gap 10 (5-15) 08/03/24 03:57 BUN 26 mg/dL (4-19) H 08/03/24 03:57 Creatinine 1.20 mg/dL (0.70-1.20) 08/03/24 03:57 Est GFR (MDRD) Non-Af 51 (>60) L 08/03/24 03:57 BUN/Creatinine Ratio 21.5 RATIO (10-20) H 08/03/24 03:57 Glucose 143 mg/dL (70-99) H 08/03/24 03:57 Vancomycin Trough 20.5 ug/mL (5.0-15.0) H 08/03/24 01:54 Random Vancomycin 18.2 ug/mL (0.0-15.0) H 08/03/24 08:39 Microbiology Microbiology: Microbiology 08/01/24 09:13 Blood Culture (Wb) - Left Forearm Blood Culture - Preliminary No growth in 48 hours. 07/31/24 09:55 Blood Culture (Wb) - Right Hand Blood Culture - Preliminary No growth in 48 hours. 07/29/24 22:30 Blood Culture (Wb) - Anticubital Left Bacteria Detection (PCR) - Final Meth. resistant Staph. aureus 07/29/24 22:30 Blood Culture (Wb) - Anticubital Left Blood Culture - Final Meth. resistant Staph. aureus 07/29/24 22:25 Blood Culture (Wb) - Right Hand Blood Culture - Final Staphylococcus aureus 07/30/24 12:50 Urine, Clean Catch Legionella Antigen - Final 07/30/24 12:50 Urine, Clean Catch Streptococcus pneumoniae Antigen (M - Final 07/30/24 12:20 Mucosa - Nasopharyngeal Respiratory Panel (PCR) - Final Goal Trough Goal Trough: 15-20 mcg/mL Pharmacy Plan for Drug Dosing Pharmacy Plan for Drug Dosing: VANCOMYCIN LEVEL RECEIVED Current Vancomycin Dose: ON HOLD- last trough elevated Number of Doses Received: on hold Vancomycin Level: 18.2 Hours Since Last Dose: 19hr Renal Function: 1.2 Renal Function Trend: stable Lab/Micro: MRSA in blood cultures Vancomycin Plan/Comments: Patient had a random trough drawn which resulted in a value of 18.2 (goal 15-20). The patient's trough is now within therapeutic range. Will resume vancomycin at 500mg IV Q12hr to start 08/03/24 @1000. Pending Level: 08/04/24 @2130, prior to 4th dose of new regimen per protocol Pharmacy Service will continue to monitor and adjust dosing as required.
[2024-08-03] MEDS: Pregabalin 75 MG Capsule 150 MG PO ×2 (10:00→21:44)
[2024-08-03] MEDS: Enoxaparin 40 MG/0.4 ML Syringe SC (10:00)
[2024-08-03] MEDS: Fluticasone 0.05% 1 SPRAY NASAL.SRY 2 SPRAY NASAL (10:00)
[2024-08-03] MEDS: Pantoprazole Sodium 40 MG Tablet PO (10:00)
[2024-08-03] MEDS: BACITRACIN 15 GM Tube 1 APPLIC TOPICAL ×3 (10:01→21:47)
[2024-08-03] MEDS: Lisinopril 40 MG Tablet PO (10:01)
[2024-08-03] MEDS: Escitalopram Oxalate 20 MG Tablet PO (10:01)
[2024-08-03] MEDS: busPIRone 5 MG Tablet PO ×3 (10:02→21:44)
[2024-08-03] MEDS: Ensure Plus High Protein 120 ML LIQUID PO ×3 (10:06→18:22)
[2024-08-03] MEDS: Vancomycin IV 500 MG/100 ML BAG 100 MG IV ×2 (11:07→21:44)
[2024-08-03] MEDS: Rizatriptan Benzoate 10 MG Tablet PO (14:44)
--- NOTE | 2024-08-03 15:07 | CHAPLAIN ---
Type of Pastoral Visit _x__ Initial Visit ___ Follow-up Visit ___ On-call Visit ___ General Patient Visit ___ Spiritual Assessment ___ Family Conference ___ Bereavement ___ Rapid Response ___ Code Blue ___ Other (describe below) Pastoral Care Referral From _x__ Patient ___ Family ___ Nurse ___ Physician ___ Test Development Engineer ___ Board Catcher ___ Other (describe below) Sacrament/Intervention _x__ Active listening ___ Anointing ___ Roman Catholic ___ Bereavement ___ Communion ___ Angelique exploration ___ ___ Life review _x__ Prayer ___ Reconciliation ___ Sacrament of Sick _x__ Supportive presence ___ Wedding ___ Other (describe below) Pastoral Comments patient was resting in a darkened room; pt does respond to come in when asked about entry; pt immediately starts talking about being from her handicapped daughter and that I've taken care of her for all these years and have done a good job and now they don't let her be with me; pt says that this is her worry along with getting a car for transportation; pt says that she is feeling some better and does ask for a prayer
[2024-08-03] MEDS: hydrOXYzine PAM 25 MG Capsule PO (18:18)
[2024-08-03] MEDS: Labetalol 20 MG/4 ML Vial IV (19:07)
[2024-08-03] MEDS: traZODone 50 MG Tablet PO (21:45)
[2024-08-03] MEDS: Atorvastatin Calcium 40 MG Tablet PO (21:45)
[2024-08-03] MEDS: Amitriptyline 100 MG Tablet 150 MG PO (21:45)
[2024-08-04] VITALS (10 sets, daily range): BP systolic 151–190; BP diastolic 87–109; PULSE 76–99; RESP 17–22; TEMP 36.7–37.8; O2SAT 91–97
[2024-08-04] MEDS: Morphine 2 MG/ML Syringe IV ×2 (03:56→14:39)
[2024-08-04] MEDS: Labetalol 20 MG/4 ML Vial IV ×2 (03:56→20:13)
[2024-08-04] MEDS: Acetaminophen 325 MG Tablet 650 MG PO ×2 (03:57→09:19)
[2024-08-04 06:07] LABS: Absolute Lymphocyte Count 1.48 X10^3/uL (0.83-4.51); Absolute Neutrophil Count 9.6 X10^3/uL (2.0-7.7); Basophil# 0.03 X10^3/uL; Basophil% 0.2 % (0-1); Eosinophil# 0.18 X10^3/uL; Eosinophils% 1.5 % (0-5); Hematocrit 25.5 % (37-47); Hemoglobin 8.3 g/dL (12.0-15.0); Lymphocyte # 1.48 X10^3/ul (0.83-4.51); Lymphocyte % 12.2 % (19-41); Mean Corp Hgb Conc 32.5 g/dL (32-36); Mean Corpuscular Volume 89.2 fL (81-99); Mean Platelet Vol. 10.5 fl (6.2-12.0); Monocyte# 0.75 X10^3/uL; Monocyte% 6.2 % (0-10); NRBC Flagged by Analyzer 0 % (0-5); Neutrophil # 9.58 X10^3/uL (2.7-7.7); Neutrophil % 78.6 % (47-70); Platelet Count 341 K/mm3 (150-450); RBC Distribution Width CV 13.9 % (11.6-14.6); RBC Distribution Width SD 45.8 fl (35.1-43.9); Red Blood Count 2.86 M/mm3 (4.2-5.4); White Blood Count 12.2 K/mm3 (4.4-11.0)
[2024-08-04] MEDS: busPIRone 5 MG Tablet PO ×3 (06:29→19:58)
[2024-08-04 06:35] LABS: Anion Gap 14 (5-15); BUN 22 mg/dL (4-19); BUN/Creat Ratio 19.5 RATIO (10-20); Calcium,Total 8.3 mg/dL (7.6-11.0); Carbon Dioxide 24.4 mmol/L (21.0-32.0); Chloride 104 mmol/L (98-108); Creatinine, Serum 1.12 mg/dL (0.70-1.20); EST Glomerular Filtration Rate 55 (>60); Estimated Creatinine Clearance 43.13 ml/min (50-250); Glucose 111 mg/dL (70-99); Potassium 3.2 mmol/L (3.3-5.1); Sodium Level 142 mmol/L (133-145)
--- NOTE | 2024-08-04 08:16 | PN.HOSP_ITS ---
Reason for Visit Reason for Visit: Diagnoses Sepsis, unspecified organism (07/26/24) Methicillin resistant Staphylococcus aureus infection as the cause of diseases classified elsewhere (07/26/24) Nicotine dependence, cigarettes, uncomplicated (07/26/24) Essential (primary) hypertension (07/26/24) Chronic obstructive pulmonary disease, unspecified (07/26/24) Pleural effusion, not elsewhere classified (07/26/24) Unspecified intestinal obstruction, unspecified as to partial versus complete obstruction (07/26/24) Rheumatoid arthritis, unspecified (07/26/24) Acute kidney failure, unspecified (07/26/24) Bacteremia (07/26/24) Subjective Subjective Feeling well. Tolerating diet. Denies abdominal pain. Objective Data Objective Data Vital Signs: Vital Signs Temp Pulse Resp BP Pulse Ox O2 Del Method O2 Flow Rate 36.8 C 76 20 H 151/90 H 97 Nasal Cannula 2.5 08/04/24 06:00 08/04/24 06:00 08/04/24 06:00 08/04/24 06:00 08/04/24 06:00 08/04/24 06:00 08/04/24 06:00 Oxygen Flow Rate (L/min) 2.5 Oxygen Delivery Method Nasal Cannula Weight: 64.6 kg Body Mass Index (BMI) 30.8 Intake & Output: Intake and Output for Last 24 Hours 08/02/24 08/03/24 08/04/24 23:59 23:59 23:59 Intake Total 1657.92 / 1657.92 540 / 640 200 / 200 Output Total 140 / 340 200 / 200 Balance 1657.92 / 1657.92 400 / 300 0 / 0 Lab / Micro Data 08/04/24 04:50 08/04/24 04:50 Labs: Laboratory Results - last 24 hr 08/03/24 08:39: Random Vancomycin 18.2 H 08/04/24 04:50: WBC 12.2 H, RBC 2.86 L, Hgb 8.3 L, Hct 25.5 L, MCV 89.2, MCH 29.0, MCHC 32.5, RDW Std Deviation 45.8 H, RDW Coeff of Alejandra 13.9, Plt Count 341, MPV 10.5, Immature Gran % (Auto) 1.300 H, Neut % (Auto) 78.6 H, Lymph % (Auto) 12.2 L, [place] % (Auto) 6.2, Eos % (Auto) 1.5, Baso % (Auto) 0.2, Absolute Neuts (auto) 9.6 H, Absolute Lymphs (auto) 1.48, Nucleated RBC % 0, Sodium 142, P otassium 3.2 L, Chloride 104, Carbon Dioxide 24.4, Anion Gap 14, BUN 22 H, Creatinine 1.12, Estim Creat Clear Calc 43.13 L, Est GFR (MDRD) Non-Af 55 L, BUN/Creatinine Ratio 19.5, Glucose 111 H, Calcium 8.3 Micro: Microbiology 08/01/24 09:13 Blood Culture (Wb) - Left Forearm Blood Culture - Preliminary No growth in 48 hours. 07/31/24 09:55 Blood Culture (Wb) - Right Hand Blood Culture - Preliminary No growth in 48 hours. 07/29/24 22:30 Blood Culture (Wb) - Anticubital Left Bacteria Detection (PCR) - Final Meth. resistant Staph. aureus 07/29/24 22:30 Blood Culture (Wb) - Anticubital Left Blood Culture - Final Meth. resistant Staph. aureus 07/29/24 22:25 Blood Culture (Wb) - Right Hand Blood Culture - Final Staphylococcus aureus 07/30/24 12:50 Urine, Clean Catch Legionella Antigen - Final 07/30/24 12:50 Urine, Clean Catch Streptococcus pneumoniae Antigen (M - Final 07/30/24 12:20 Mucosa - Nasopharyngeal Respiratory Panel (PCR) - Final Radiography Diagnostic Testing: Radiology Impression Venous Doppler Study 08/01/24 09:53 Interpretation Summary Deep veins of the upper extremities are bilaterally patent and compressible segmentally. There is no evidence of deep vein thrombosis on either side. Acute superficial thrombophlebitis is noted in the right median cubital vein and the right cephalic vein from the distal bicep to the wrist. The right basilic vein is patent and compressible.The left basilic and cephalic veins are patent and compressible. A PICC catheter is visible in the left basilic vein. Ordering Physician: Sid Hillman Referring Physician: Amalia Rice Performed By: Fanny Perez RVT ??? Physical Exam Const Constitutional Narrative: sleeping. easily awakes. HEENT head/scalp atraumatic and moist oral mucous membranes Resp normal respiratory effort and no retractions GI non-tender and non-distended Neuro Sensorium / Orientation: awake and alert Psych affect normal Assessment & Plan Assessment/Plan (1) Small bowel obstruction: PLAN: Symptoms began around the . CAT scan showed diffuse dilation of the small bowel with transition point within the distal duodenum. Since resolved. (2) MRSA bacteremia: PLAN: No clear criteria met for sepsis. Pt declined JENNIFER. TTE showed what was previously thought to be a vegetation, but cardiology feels that it is an enlarged papillar muscle and LV. No vegetation seen. No spinal lesions on CT lumbar and thoracic spines. BCx negative on thus far Pt to be discharged with 6 weeks of IV vancomycin (stop date 09/11). Pt will need to have [facility] to iniate the IV abx at home, but this cannot be arranged until 08/05 (3) Pleural effusion: PLAN: noted on CT. Appears rather small. Would recommend holding off on thoracentesis at this time as I feel the risks outweigh the benefits at this time. However, would still reimage in 4-6 weeks to see if changed. If worse, then would consider thoracentesis at that time. PLAN: Plan Chronic conditions * Heart failure: HFpEF (EF between 55% from June 2017) currently compensated. Holding off on furosemide for now. * Hypertension: Stable. Olding off on lisinopril for this time as patient is n.p.o. * History of migraines: Supportive management at this time. No active migraine. Consider IV/SQ triptans if necessary. * Depression: Holding off on SSRIs for now. VTE prophylaxis with enoxaparin CODE STATUS: Addressed with the patient. Patient wishes to be full code. Charges/Coding Visit Charges Inpatient E&M: 34310 Subs Hosp L1
[2024-08-04] MEDS: Fluticasone 0.05% 1 SPRAY NASAL.SRY 2 SPRAY NASAL (09:09)
[2024-08-04] MEDS: Escitalopram Oxalate 20 MG Tablet PO (09:10)
[2024-08-04] MEDS: Enoxaparin 40 MG/0.4 ML Syringe SC (09:10)
[2024-08-04] MEDS: Pantoprazole Sodium 40 MG Tablet PO (09:11)
[2024-08-04] MEDS: Lisinopril 40 MG Tablet PO (09:11)
[2024-08-04] MEDS: Vancomycin IV 500 MG/100 ML BAG 100 MG IV ×2 (09:18→23:05)
[2024-08-04] MEDS: hydrALAZINE 20 MG/ML Vial 5 MG IV ×2 (09:19→14:39)
[2024-08-04] MEDS: Pregabalin 75 MG Capsule 150 MG PO ×2 (09:19→20:08)
[2024-08-04] MEDS: 0.9% Saline Lock 10 ML Syringe IV (09:20)
--- NOTE | 2024-08-04 09:47 | PCM.PN.ID ---
Physical Exam Narrative Feeling ok, wants to go home, no fever, no n/v/d. Const alert and no apparent distress General Appearance: cooperative Resp normal air movement and clear to auscultation bilaterally Cardio regular rate and regular rhythm GI soft to palpation, non-tender and non-distended Skin no rashes or lesions noted ID ID: Route of nutrition/ use of supplements: [] Nutritional Intake: [] IV Site: [] Byrne Catheter: [] Assessment & Plan Assessment/Plan (1) MRSA bacteremia: (2) Small bowel obstruction: (3) Rheumatoid arthritis: (4) Sepsis: PLAN: sepsis with JOSE, MRSA bacteremia, and h/o COPD. Suspect pulmonary source given past sputum (+) for MRSA. Concern for endocarditis with LV mass seen on TTE; pt again refuses to JENNIFER. CT with moderate R effusion, may need thoracentesis to help with source control. Will cont vanc. Will order picc and 6 weeks iv vanc, stop date 09/11/24 with weekly labs, ID followup in 2 weeks. Will follow, d/w rn case manager (5) JOSE (acute kidney injury):
--- NOTE | 2024-08-04 10:45 | CASEMGMT ---
Addendum entered by Fanny Villarreal 08/04/24 12:01: RICARDO SYED called and updated significant other regarding discharge plans. Addendum entered by Fanny Villarreal 08/04/24 11:50: RICARDO SYED received call back from [facility] and they are able to accept patient will start of care for , discharge planned for tomorrow. Original Note: RICARDO SYED updated by ID patient will need 6 weeks of IV ATBs at discharge. RICARDO SYED in to discuss needs at discharge. Patient agreeable to [facility]. Patient states she would prefer [facility], declined list. RICARDO SYED reviewed infusion companies with patient and prefers [facility]. Patient denies further needs or concerns. RICARDO SYED called and made referral to [facility], awaiting acceptance. RICARDO SYED sent referral to [facility] via [employer]. CM will continue to follow this patient and plan for a safe discharge.
[2024-08-04] MEDS: BACITRACIN 15 GM Tube 1 APPLIC TOPICAL ×2 (14:38→19:59)
[2024-08-04] MEDS: Rizatriptan Benzoate 10 MG Tablet PO (18:41)
[2024-08-04] MEDS: Amitriptyline 100 MG Tablet 150 MG PO (19:57)
[2024-08-04] MEDS: Atorvastatin Calcium 40 MG Tablet PO (19:57)
[2024-08-04] MEDS: traZODone 50 MG Tablet PO (19:58)
[2024-08-04 22:30] LABS: Vancomycin, Trough Level 17.2 ug/mL (5.0-15.0)
--- NOTE | 2024-08-04 22:50 | PCM.RX.CS ---
Consult Antibiotic Management Pharmacy has been consulted to manage selected antibiotic: Vancomycin Type of Intervention Type of Consult: Follow-up Labs Labs: Sodium 142 mmol/L (133-145) 08/04/24 04:50 Potassium 3.2 mmol/L (3.3-5.1) L 08/04/24 04:50 Chloride 104 mmol/L (98-108) 08/04/24 04:50 Carbon Dioxide 24.4 mmol/L (21.0-32.0) 08/04/24 04:50 Anion Gap 14 (5-15) 08/04/24 04:50 BUN 22 mg/dL (4-19) H 08/04/24 04:50 Creatinine 1.12 mg/dL (0.70-1.20) 08/04/24 04:50 Est GFR (MDRD) Non-Af 55 (>60) L 08/04/24 04:50 BUN/Creatinine Ratio 19.5 RATIO (10-20) 08/04/24 04:50 Glucose 111 mg/dL (70-99) H 08/04/24 04:50 Vancomycin Trough 17.2 ug/mL (5.0-15.0) H 08/04/24 21:40 Random Vancomycin 18.2 ug/mL (0.0-15.0) H 08/03/24 08:39 Microbiology Microbiology: Microbiology 08/01/24 09:13 Blood Culture (Wb) - Left Forearm Blood Culture - Preliminary No growth in 48 hours. 07/31/24 09:55 Blood Culture (Wb) - Right Hand Blood Culture - Preliminary No growth in 48 hours. 07/29/24 22:30 Blood Culture (Wb) - Anticubital Left Bacteria Detection (PCR) - Final Meth. resistant Staph. aureus 07/29/24 22:30 Blood Culture (Wb) - Anticubital Left Blood Culture - Final Meth. resistant Staph. aureus 07/29/24 22:25 Blood Culture (Wb) - Right Hand Blood Culture - Final Staphylococcus aureus 07/30/24 12:50 Urine, Clean Catch Legionella Antigen - Final 07/30/24 12:50 Urine, Clean Catch Streptococcus pneumoniae Antigen (M - Final 07/30/24 12:20 Mucosa - Nasopharyngeal Respiratory Panel (PCR) - Final Goal Trough Goal Trough: 15-20 mcg/mL Pharmacy Plan for Drug Dosing Pharmacy Plan for Drug Dosing: Pharmacy Service will continue to monitor and adjust dosing as required. TROUGH 17.2 @ 12.5 HOURS. NO CHANGES, FOLLOW UP TROUGH IN 2 DAYS Follow-Up Labs Follow-Up Labs: Trough: Vancomycin Date/Time Labs Ordered Labs to be done on [date and time ordered]: 08/06 @ 5393
[2024-08-05 04:24] VITALS: BP 168/86; PULSE 86; RESP 20; TEMP 37.1; O2SAT 94
[2024-08-05] MEDS: busPIRone 5 MG Tablet PO (06:06)
[2024-08-05] MEDS: BACITRACIN 15 GM Tube 1 APPLIC TOPICAL (06:07)
[2024-08-05 08:36] VITALS: BP 158/94; PULSE 109; RESP 22; TEMP 36.9; O2SAT 94
[2024-08-05] MEDS: Escitalopram Oxalate 20 MG Tablet PO (08:56)
[2024-08-05] MEDS: Lisinopril 40 MG Tablet PO (08:56)
[2024-08-05] MEDS: Rizatriptan Benzoate 10 MG Tablet PO (08:56)
[2024-08-05] MEDS: Potassium Chloride Oral Tablet 20 MEQ PO (08:56)
[2024-08-05] MEDS: Pantoprazole Sodium 40 MG Tablet PO (08:56)
[2024-08-05] MEDS: Pregabalin 75 MG Capsule 150 MG PO (08:56)
[2024-08-05] MEDS: Enoxaparin 40 MG/0.4 ML Syringe SC (08:57)
[2024-08-05] MEDS: Fluticasone 0.05% 1 SPRAY NASAL.SRY 2 SPRAY NASAL (08:57)
[2024-08-05] MEDS: Meloxicam 15 MG Tablet PO (09:45)
[2024-08-05] MEDS: Vancomycin IV 500 MG/100 ML BAG 100 MG IV (09:46)
[2024-08-05] MEDS: 0.9% Saline Lock 10 ML Syringe IV (11:13)
[2024-08-05 11:14] VITALS: O2SAT 86; O2SAT 91; O2SAT 94
[2024-08-05 11:33] VITALS: BP 151/96; PULSE 108; RESP 20; TEMP 36.8; O2SAT 94
--- NOTE | 2024-08-05 12:52 | DS.PCM_ITS ---
Providers Date of Admission: 07/26/24 Primary Care Physician: DALI FRAGOSO, REIMBURSEMENT LIAISON-C Consultations 07/26/24 20:45 Consult: General Surgery Routine Consulting Provider: Kalyan Bass Reason for Consult: SBO EMERGENT Consult: No MD Notified: Yes Date Notified: 07/26/24 Time Notified: 18:26 Method of Notification: ED Physician Initiated 07/30/24 13:19 Consult: Infectious Disease Routine Consulting Provider: Merrick White Reason for Consult: gram positive bacteremia EMERGENT Consult: No MD Notified: Yes Date Notified: 07/30/24 Time Notified: 13:20 Method of Notification: Text 07/31/24 10:47 Consult: Cardiology Routine Consulting Provider: Sam Graves Reason for Consult: endocarditis EMERGENT Consult: No Notified: Yes Date Notified: 07/31/24 Time Notified: 10:47 Method of Notification: Answering Service Comments:: MRSA bacteremia with large LV mass seen on TTE Reason For Visit: SBO Diagnosis Discharge Diagnosis (1) Small bowel obstruction: Status: Acute Code(s): K56.609 - Unspecified intestinal obstruction, unspecified as to partial versus complete obstruction Plan: Symptoms began around the . CAT scan showed diffuse dilation of the small bowel with transition point within the distal duodenum. Since resolved. (2) MRSA bacteremia: Status: Acute Code(s): R78.81 - Bacteremia; B95.62 - Methicillin resistant Staphylococcus aureus infection as the cause of diseases classified elsewhere Plan: No clear criteria met for sepsis. Pt declined JENNIFER. TTE showed what was previously thought to be a vegetation, but cardiology feels that it is an enlarged papillar muscle and LV. No vegetation seen. No spinal lesions on CT lumbar and thoracic spines. BCx negative on thus far Pt to be discharged with 6 weeks of IV vancomycin (stop date 09/11). Pt will need to have [facility] to iniate the IV abx at home, but this cannot be arranged until 08/05 (3) Pleural effusion: Status: Acute Code(s): J90 - Pleural effusion, not elsewhere classified Plan: noted on CT. Appears rather small. Would recommend holding off on thoracentesis at this time as I feel the risks outweigh the benefits at this time. However, would still reimage in 4-6 weeks to see if changed. If worse, then would consider thoracentesis at that time. Plan Chronic conditions * Heart failure: HFpEF (EF between 55% from June 2017) currently compensated. * Hypertension: Stable. Olding off on lisinopril for this time as patient is n.p.o. * History of migraines: Supportive management at this time. No active migraine. Consider IV/SQ triptans if necessary. * Depression: Holding off on SSRIs for now. VTE prophylaxis with enoxaparin CODE STATUS: Addressed with the patient. Patient wishes to be full code. Medications at Discharge Home Medications albuterol sulfate 90 mcg/actuation aerosol inhaler (ProAir HFA) 2 puff inhalation Q4H PRN PRN Sob &/Or Wheezing 07/26/14 nitroglycerin 0.4 mg sublingual tablet 0.4 mg sublingual PRN PRN CHEST PAIN 06/04/17 amitriptyline 100 mg tablet 150 mg PO QHS depresssion 10/10/22 meloxicam 7.5 mg tablet 15 mg PO DAILY pain 10/10/22 sumatriptan succinate 50 mg tablet 50 mg PO PRN PRN migraine headache 10/10/22 ondansetron 4 mg disintegrating tablet 4 mg PO Q8H PRN PRN Nausea #14 tabs 11/14/22 atorvastatin 40 mg tablet 40 mg PO QHS Cholesterol 05/11/23 buspirone 5 mg tablet 10 mg PO TID Anxiety 05/11/23 dexlansoprazole 60 mg capsule,biphase delayed release 60 mg PO DAILY GERD 05/11/23 escitalopram oxalate 20 mg tablet 20 mg PO DAILY depression 05/11/23 hydroxyzine HCl 50 mg tablet 50 mg PO TID PRN Anxiety 05/11/23 pregabalin 25 mg capsule 150 mg PO BID Nerve pain 05/11/23 tizanidine 4 mg tablet 4 mg PO Q8H PRN PRN muscle spasm 05/11/23 acetaminophen 325 mg tablet 1,000 mg (3.0769 x 325 mg) PO Q8H PRN PRN fever/pain 1-10 #0 tabs 05/20/23 lisinopril 40 mg tablet 40 mg PO DAILY blood pressure 06/04/23 potassium chloride 20 mEq tablet,extended release(part/cryst) 20 meq PO DAILYCM diuretic use #30 tabs 06/06/23 trazodone 50 mg tablet 50 mg PO QHS insomnia 05/01/24 albuterol sulfate 2.5 mg/3 mL (0.083 %) solution for nebulization 2.5 mg inhalation Q4H PRN PRN wheezing 07/26/24 buspirone 10 mg tablet 10 mg PO TID mental health 07/26/24 fluticasone 250 mcg-salmeterol 50 mcg/dose blistr powdr for inhalation 1 ea inhalation BID copd 07/26/24 furosemide 40 mg tablet 40 mg PO DAILY water pill 07/26/24 loperamide 2 mg capsule 2 mg PO TID PRN PRN diarrhea 07/26/24 vancomycin 500 mg/100 mL in dextrose 5 % intravenous piggyback 500 mg IV Q12H 38 days #76 mL 08/04/24 Hospital Course Operations None Procedures PICC line placement Physical Exam Const alert and no apparent distress General Appearance: cooperative and comfortable Extremity normal to inspection and no clubbing, cyanosis or edema Weight / BMI Weight Weight: 64.6 kg Body Mass Index (BMI) 30.8 ABG / Lab / Microbiology Data 08/04/24 04:50 08/04/24 04:50 Laboratory: Laboratory Results - last 24 hr 08/04/24 21:40: Vancomycin Trough 17.2 H Microbiology: Microbiology 07/31/24 09:55 Blood Culture (Wb) - Right Hand Blood Culture - Final No growth in 5 days. 08/01/24 09:13 Blood Culture (Wb) - Left Forearm Blood Culture - Preliminary No growth in 48 hours. 07/29/24 22:30 Blood Culture (Wb) - Anticubital Left Bacteria Detection (PCR) - Final Meth. resistant Staph. aureus 07/29/24 22:30 Blood Culture (Wb) - Anticubital Left Blood Culture - Final Meth. resistant Staph. aureus 07/29/24 22:25 Blood Culture (Wb) - Right Hand Blood Culture - Final Staphylococcus aureus 07/30/24 12:50 Urine, Clean Catch Legionella Antigen - Final 07/30/24 12:50 Urine, Clean Catch Streptococcus pneumoniae Antigen (M - Final 07/30/24 12:20 Mucosa - Nasopharyngeal Respiratory Panel (PCR) - Final D/C Instructions DC O2, CPAP, BIPAP Needs Home O2 Discharge instructions: Yes Type of respiratory needs?: Oxygen (4) Oxygen frequency: Continuous Continuous oxygen liters per minute: 4 DC home with Oxygen: Yes Home O2 MD Review: I have reviewed the oxygen testing, and the patient qualifies for home oxygen equipment and portability. The patient is mobile in the home and the community. Meaningful Use Info Meaningful Use Meaningful Use Diagnoses (Choose all that apply): None applicable Ischemic Stroke Statin Dosing Therapy Reference: STATIN DOSE THERAPY REFERENCE: * Patients > 75 years receive moderate or high dose statin therapy. * Patients 75 years or YOUNGER should receive HIGH intensity statin dose unless contraindicated. You will be required to document reason for non-treatment if statin daily dose does not meet guidelines. HIGH DOSE STATIN THERAPY DAILY Atorvastatin > than or = to 40 mg Rosuvastatin > than or = to 20 mg Amlodipine + Atorvastatin > than or = to 2.5/40 mg Ezetimibe + Simvastatin 10/80 mg Simvastatin 80mg Discharge Plan Admission Admit Date/Time: 07/26/24 18:23 Primary Reason for Your Visit: SBO. bacteremia Attending Provider: Trey Joe Primary Care Provider: DALI FRAGOSO Consulting Providers: Trey Joe; Dolly Daniels; Sid Hillman; Sam Graves; Kalyan Bass; Merrick White Discharge Orders/Prescriptions Prescriptions: New vancomycin in dextrose 5 % 500 mg/100 mL Piggyback 500 mg IV Q12H 38 Days Qty: 76 0RF Rx Instructions: stop date 09/11/24. Weekly bmp, cbc, and vanc trough. Fax to [phone]. Routine picc care per protocol. Dx: MRSA endocarditis. Continued albuterol sulfate [ProAir HFA] 1 PUFF inhaler 2 puff inhalation Q4H PRN PRN (Reason: Sob &/Or Wheezing) nitroglycerin 0.4 MG tablet, sublingual 0.4 mg sublingual PRN PRN (Reason: CHEST PAIN) ondansetron 4 mg tablet,disintegrating 4 mg PO Q8H PRN PRN (Reason: Nausea) Qty: 14 0RF amitriptyline 100 mg tablet 150 mg PO QHS sumatriptan succinate 50 mg tablet 50 mg PO PRN PRN (Reason: migraine headache) meloxicam 7.5 mg tablet 15 mg PO DAILY Patient Comments: TAKE ONE TABLET BY MOUTH DAILY AT 9AM escitalopram oxalate 20 mg tablet 20 mg PO DAILY tizanidine 4 mg tablet 4 mg PO Q8H PRN PRN (Reason: muscle spasm) atorvastatin 40 mg tablet 40 mg PO QHS buspirone 5 mg tablet 10 mg PO TID dexlansoprazole 60 mg capsule,biphase delayed releas 60 mg PO DAILY hydroxyzine HCl 50 mg tablet 50 mg PO TID PRN (Reason: Anxiety) pregabalin 25 mg capsule 150 mg PO BID acetaminophen 325 mg Tablet 1,000 mg PO Q8H PRN PRN (Reason: fever/pain 1-10) Qty: 0 0RF lisinopril 40 mg tablet 40 mg PO DAILY potassium chloride 20 mEq Tablet,Er Particles/Crystals 20 meq PO DAILYCM Qty: 30 0RF trazodone 50 mg tablet 50 mg PO QHS albuterol sulfate 2.5 mg /3 mL (0.083 %) solution for nebulization 2.5 mg inhalation Q4H PRN PRN (Reason: wheezing) buspirone 10 mg tablet 10 mg PO TID fluticasone propion-salmeterol 250-50 mcg/dose blister with device 1 ea INHALATION BID loperamide 2 mg capsule 2 mg PO TID PRN PRN (Reason: diarrhea) furosemide 40 mg tablet 40 mg PO DAILY Patient Comments: pt states she had some, but does online rx; unclear last dose Discontinued escitalopram oxalate [Lexapro] 20 mg tablet 20 mg PO DAILY Referrals / Follow Up: Merrick White MD [Med Staff - Active Staff] - Within 2 Weeks DALI FRAGOSO NP-C [Primary Care Provider] - Within 2 Weeks Disposition Disposition (needs filled in before D/C Order can be placed): Home Health Service Charges/Coding Visit Charges Inpatient E&M: 50867 Disch Hosp
--- NOTE | 2024-08-05 13:22 | CASEMGMT ---
Patient has order discharge. RICARDO SYED updated [facility] regarding discharge, medications to be shipped this afternoon. RICARDO SYED called [facility], start of care planned for tomorrow at 0800. RICARDO SYED called [facility] to update regarding HHC and IV ATBS, [facility] voiced understanding. Patient requires increase in home oxygen, script received and sent to [facility] via [facility]. RICAROD SYED updated patient and discharge plan.
[2024-08-05 13:55] VITALS: BP 151/96; PULSE 108; RESP 20; TEMP 36.8; O2SAT 94
--- NOTE | 2024-08-05 15:06 | CASEMGMT ---
A referral was made to [facility] by ED HERNANDO. HERNANDO called Brandon at [facility] and left a voice mail letting her know that patient is being discharged today. Dianna LUGO
== END 2024-08-05 15:21 | disposition home health service (06) | DRG 388 ==
LOC: ED 18:30 → MS3 18:46 → PCU 08-01 15:33
PROVIDERS: Family Medicine; Internal Medicine; Physician Assistant; Student in an Organized Health Care Education/Training Program; Emergency Provider Emergency Medicine; PCP Nurse Practitioner
DX: K56.609 Unspecified intestinal obstruction, unspecified as to partial versus complete obstruction (principal); I33.0 Acute and subacute infective endocarditis; R78.81 Bacteremia; I50.32 Chronic diastolic (congestive) heart failure; J44.1 Chronic obstructive pulmonary disease with (acute) exacerbation; I11.0 Hypertensive heart disease with heart failure; M06.9 Rheumatoid arthritis, unspecified; F32.A Depression, unspecified; I25.10 Atherosclerotic heart disease of native coronary artery without angina pectoris; I25.2 Old myocardial infarction; K21.9 Gastro-esophageal reflux disease without esophagitis; F41.9 Anxiety disorder, unspecified; E87.6 Hypokalemia; B95.62 Methicillin resistant Staphylococcus aureus infection as the cause of diseases classified elsewhere; Z99.81 Dependence on supplemental oxygen; Z79.1 Long term (current) use of non-steroidal anti-inflammatories (NSAID); Z79.631 Long term (current) use of antimetabolite agent; Z79.899 Other long term (current) drug therapy; Z87.891 Personal history of nicotine dependence
CPT/HCPCS: 36415; 36569; 36600; 71046; 71260; 72129; 72132; 74018; 74177; 74250; 80048; 80053; 80202; 81001; 82803; 83690; 83735; 84132; 85025; 86140; 87040; 87077; 87149; 87186; 87449; 87633; 93005; 93306; 93970; 94640; 97116; 97162; 97530; 99285; Q9957; Q9967; A4216; C8929; J2405

== ENCOUNTER 2024-08-06 03:43 | Emergency (ER) | payer MEDICARE, MEDICAID, SELFPAY ==
[2024-08-06 03:44] VITALS: BP 144/90; PULSE 103; RESP 19; TEMP 37.3; O2SAT 94; BMI 35.0
--- OUTSIDE RECORDS SUMMARY | 2024-08-06 04:30 | XMS RPT_ITS | CCD ---
Author Organization [facility] Care Team Providers Care Head Baker Name Role Phone SEBAS MOLINA Unavailable Unavailable SEBAS MOLINA Unavailable Unavailable Nakita Miller Unavailable Unavailable Nakita Miller Unavailable Unavailable NO REFERRING DR Unavailable Unavailable ERNESTO GOSS Unavailable Unavailable ERNESTO GOSS Unavailable Unavailable IMCA Unavailable Unavailable ERNESTO GOSS Unavailable Unavailable ERNESTO GOSS Unavailable Unavailable IMCA Unavailable Unavailable PAVEL HATCH Unavailable Unavailable PAVEL HATCH Unavailable Unavailable DIANA COHN MD Unavailable Unavailable PAVEL HATCH Unavailable Unavailable DIANA COHN MD Unavailable Unavailable PROVIDER, UNKNOWN Unavailable Unavailable PROVIDER, UNKNOWN Unavailable Unavailable ZOIE, GEORGIANA Unavailable Unavailable ZOIE, GEORGIANA Unavailable Unavailable ZOIE, GEORGIANA Unavailable Unavailable ZOIE, GEORGIANA Unavailable Unavailable My COOK, Velvet Primary Care Provider Kady SILVA, Juan Hale Unavailable Unavailkelley Palacio MD, Velvet Primary Care Provider Kady SILVA, Juan Hale Unavailable Unavailkelley Chu RN, Hilda Unavailable My COOK, Velvet Primary Care Provider Kimberley RN, Hilda Unavailable Juan SILVA, Kady Hale Unavailable Unavailkelley Chu RN, Hilda Unavailable Joaquin SILVA, Crystal Unavailable My COOK, Velvet Primary Care Provider My COOK, Velvet Primary Care Provider Joaquin SILVA, Crystal Unavailable My COOK, Velvet Primary Care Provider Kimberley SILVA, Hilda Unavailable OLDER, CARPET BINDER-C DALI Primary Care Provider Dr. Ness Yu Emergency Provider Dr. Himanshu Aldana Admit Provider Unavailable Dr. Himanshu Aldana Attending Provider Unavailab le Jovan, Dr. Downs Other Provider Unavailable Dr. Sid Hillman Attending Provider [phone] Sid Hillman Other Provider Dr. Merrick White Other Provider Dr. Trey Joe Attending Provider Dr. Trey Joe Other Provider Dr. Roque Mirza Other Provider Dr. Chato Jon Other Provider Dr. Kun Willams Other Provider Dr. Domingo Penn Other Provider Dr. Patricia Dyer Other Provider Dr. Frederic Gómez Other Provider Dr. Danielle Miguel Other Provider Dr. North Berry Other Provider Unavailable Dr. Grover Urias Other Provider [phone] Norman Lozano Other Provider Dr. Joel Holguin Other Provider Dr. Rahul Jaimes Other Provider Dr. Kun Willams Attending Provider PHYSICIAN, NONE Attending Unavailable PHYSICIAN, NONE Primary Care Unavailable Dr. Trey Joe Referring Provider Dr. Zurdo Howard Emergency Provider [phone] Dr. Sid Hillman Admit Provider [phone] Dr. Diana Bates Attending Provider Unavailable Dr. Diana Bates Other Provider Unavailable Dr. 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 Wasserman Attending Provider Dr. Lux Hurley MD Referring Provider Dr. Anival Mejía DO Emergency Provider Heath MATA, Dr. Yang Admit Provider Dr. Trey Joe DO Other Provider Dr. Himanshu Aldana MD Attending Provider Juan Ramon Aldana MD, Dr. Downs Referring Provider Dr. Trey Cardona DO Attending Provider Jovan COOK, Dr. Downs Other Provider Unavailab Dr. Alisa Pineda DO Emergency Provider OLDER, DALI Attending Unavailable GANTA, VELVET Primary Care Unavailable OLDER, DALI Referring Unavailable GANTA, VELVET Primary Care Unavailable GANTA, VELVET Primary Care Unavailable OLDER, DALI Referring Unavailable GANTA, VELVET Primary Care Unavailable BOGNER, INES Attending Unavailable GANTA, VELVET Primary Care Unavailable BOGNER, INES Referring Unavailable GANTA, VELVET Primary Care Unavailable OLDER, ADLI Attending Unavailable GANTA, VELVET Primary Care Unavailable MARI MARTINEZ Attending Unavailable GANTA, VELVET Primary Care Unavailable OLDER, DALI Referring Unavailable GANTA, VELVET Primary Care Unavailable MOLINA, SEBAS Referring Unavailable GANTA, VELVET Primary Care Unavailable MOLINA, SEBAS Attending Unavailable GANTA, VELVET Primary Care Unavailable OLDER, DALI Attending Unavailable FERNANDEZFERNANDO Referring Unavailable GANTA, VELVET Primary Care Unavailable OLDER, DALI Referring Unavailable GANTA, VELVET Primary Care Unavailable OLDER, DALI Referring Unavailable GANTA, VELVET Primary Care Unavailable MOLINA, SEBAS Attending Unavailable MOLINA, SEBAS Referring Unavailable GANTA, VELVET Primary Care Unavailable OLDER, DALI Attending Unavailable GANTA, VELVET Primary Care Unavailable GANTA, VELVET Attending Unavailable GANTA, VELVET Primary Care Unavailable OLDER, DALI Attending Unavailable GANTA, VELVET Primary Care Unavailable GANTA, VELVET Referring Unavailable GANTA, VELVET Primary Care Unavailable Jopperi, Trey Admitting Unavailable OLDER, DALI Primary Care Unavailable Jopperi, Trey Consulting Unavailable Jopperi, Trey Attending Unavailable Koram, Dolly Sandie Consulting Unavailable Rafy, Sid Consulting Unavailable Belal, Farouk Consulting Unavailable Calabretta, Kalyan Consulting Unavailable ChristopherMerrick Consulting Unavailable OLDER, DALI Primary Care Unavailable Jopperi, Trey Attending Unavailable Calabretta, Kalyan Attending Unavailable Koram, Dolly Sandie Attending Unavailable Belal, Farouk Attending Unavailable PraysonMireilles Referring Unavailable OLDER, DALI Primary Care Unavailable PralanaonMireilles Attending Unavailable OLDER, DALI Primary Care Unavailable Zurdo Howard Attending Unavailable Jopperi, Trey Admitting Unavailable Aldana, Achintya Referring Unavailable Aldana, Achintya Attending Unavailable OLDER, DALI Primary Care Unavailable Jopperi, Trey Consulting Unavailable Jopperi, Trey Admitting Unavailable OLDER, DALI Primary Care Unavailable Jopperi, Trey Attending Unavailable Jopperi, Trey Consulting Unavailable Koram, Dolly Sandie Consulting Unavailable Rafy, Sid Consulting Unavailable Belal, Farouk Consulting Unavailable Calabretta, Kalyan Consulting Unavailable Christopher, Merrick Consulting Unavailable Rafy, Sid Attending Unavailable Jopperi, Trey Admitting Unavailable Aldana, Achintya Attending Unavailable OLDER, DALI Primary Care Unavailable Jopperi, Trey Consulting Unavailable Aldana, Achintya Consulting Unavailable Jopperi, Trey Attending Unavailable OLDER, ADLI Primary Care Unavailable Belal, Farouk Attending Unavailable Allergies Allergy Classification Reported Allergen(s) Allergy Type Date of Onset Reaction(s) Facility amLODIPine (6 sources) amLODIPine Drug Allergy 06-13-19 24 Other: See Comments [facility] Work Phone: Baclofen (6 sources) Baclofen Drug Allergy 06-05-19 15 Mental Status Change [facility] Benzodiazepines (6 sources) LORazepam Drug Allergy 08-25-19 15 Mental Status Change, Vomiting [facility] Methotrexate (6 sources) Methotrexate Drug Allergy 12-20-19 12 Vomiting [facility] Nadolol (6 sources) Nadolol Drug Allergy 02-06-20 13 Intolerance [facility] Penicillins (antibiotic) (6 sources) Penicillin G Drug Allergy 09-30-19 13 GI Upset [facility] Work Phone: Propranolol (6 sources) Propranolol Drug Allergy 01-31-20 13 Intolerance [facility] Proton Pump Inhibitors (6 sources) Esomeprazole Drug Allergy 07-15-19 16 Other: See Comments [facility] (20 sources) baclofen; Translations: [BACLOFEN] Drug Allergy 06-05-19 15 Mental Status Change [facility] Repository Comment on above: MOOD SWINGS (20 sources) esomeprazole; Translations: [ESOMEPRAZOLE MAGNESIUM] Drug Allergy 07-15-19 16 Other: See Comments [facility] (20 sources) LORazepam; Translations: [LORAZEPAM] Drug Allergy 08-25-19 15 Mental Status Change, Vomiting [facility] (20 sources) methotrexate; Translations: [METHOTREXATE] Drug Allergy 12-20-19 12 Vomiting [facility] (20 sources) nadolol; Translations: [NADOLOL] Drug Allergy 02-06-20 13 Intolerance [facility] (20 sources) penicillin; Translations: [PENICILLIN G] Drug Allergy 09-30-19 13 GI Upset [facility] (20 sources) propranolol; Translations: [PROPRANOLOL] Drug Allergy 01-31-20 13 Intolerance [facility] Repository (4 sources) OTHER; Translations: [OTHER] Propensity to adverse reactions (disorder) 01-20-20 05 AOF [facility] Repository (1 source) acetylcarnitine Drug Allergy [facility] Repository (1 source) esomeprazole Drug Allergy [facility] Repository (1 source) LORazepam Drug Allergy [facility] Repository (1 source) ; Translations: [] Propensity to adverse reactions (disorder) [facility] Repository (20 sources) combid [Other] Propensity to adverse reactions 01-20-20 05 Intolerance [facility] Work Phone: (6 sources) Prochlorperazine Drug Allergy 11-15-19 23 PT UNABLE TO RESPOND-NEEDS F/U [facility] Comment on above: Combid (20 sources) amLODIPine; Translations: [AMLODIPINE] Drug Allergy 06-13-19 24 Other: See Comments [facility] Work Phone: (1 source) Prochlorperazine Drug Allergy 07-27-19 25 [facility] Rep[facility] Medications Current Medications Medication Drug Class(es) Dates Sig (Normalized) Sig (Original) acetaminophen 325 mg oral tablet (20 sources) Start: 05-20-2023 Acetaminophen 325 mg Tablet Active 1000 mg PO EVERY 8 HOURS NEEDED as needed for fever/pain 1-10 0 May 20, 2023 11:29am Start: 05-20-2023 take 1000 mg by mout h every eight hours as needed Acetaminophen Active 1000 MG PO EVERY 8 HOURS NEEDED 0 May 20, 2023 11:29am acetaminophen 32 5 mg cap Take by mouth. Active Comment on above: Take by mouth. albuterol 0.83 mg/ml inhalation solution (20 sources) beta2-Adrenergic Agonist Start: take 2.5 mg by inhalation every four hours as needed for wheezing Albuterol Sulfate 2.5 mg /3 mL (0.083 %) solution for nebulization Active 2.5 mg INHALATION EVERY 4 HOURS NEEDED as needed for wheezing July 26, 2024 12:00am Start: 06-19-2024 albuterol (PRO VENTIL) 2.5 mg /3 mL (0.083 %) nebulizer solution Indications: Moderate persistent asthma without complication (HCC) , Chronic obstructive pulmonary disease, unspecified COPD type (HCC) Use 3 mL via nebulizer every 4 hours as needed for wheezing/shortness of breath. 90 mL 1 06/19/2024 Active End: 06-19-2024 albuterol HFA (PROAIR HFA) 9 0 mcg/actuation inhaler Inhale 2 Puffs as instructed. 06/19/2024 Discontinued Comment on above: Inhale 2 Puffs as in structed. amitriptyline hydrochloride 150 mg oral tablet (20 sources) Tricyclic Antidepressant Start: 04-02-19 take 1 tablet by mouth once daily at bedtime amitriptyline 150 mg tablet Take 1 tablet by mouth daily at bedtime. 30 tablet 11 04/02/2024 Active Start: 10-10-2022 Amitriptyline 100 mg tablet Active 150 mg PO AT BEDTIME October 10, 2022 12:00am Start: 01-03-2022 End: 10-22-2023 take 1 tablet by mouth once daily at bedtime amitriptyline (ELAVIL) 100 mg tablet Take 1 tablet by mouth daily at bedtime. 90 tablet 3 01/03/2022 10/02/2022 Discontinued Start: 01-03-2022 End: 01-03-2022 amitriptyline (ELAVIL) 100 m g tablet 1.5 tablets before bed. 90 tablet 3 01/03/2022 01/03/2022 Discontinued Start: 03-23-2021 End: 01-03-2022 amitriptyline (ELAVIL) 50 mg tablet Indications: Insomnia, unspecified type 1.5 tablets before bed. 145 tablet 03/23/2021 12/15/2021 Discontinued Comment on above: 1.5 tablets before b ed. Take 1 tablet by ariela th daily at bedtime. amLODIPine 2.5 mg oral tablet (8 sources) Dihydropyridine Calcium Channel Mikhail Start: 06-10-19 End: 06-13-19 take 1 tablet by mouth once daily amLODIPine (NORVASC) 2.5 mg tablet Indications: Essential hypertension Take 1 tablet by mouth once daily. 30 tablet 11 06/10/2023 06/13/2023 Discontinued Start: 06-04-2017 End: 10-10-2022 take 2 tablets by mouth twice daily Amlodipine 5 MG tablet Discontinued 10 mg PO TWICE A DAY June 04, 2017 12:00am October 10, 2022 4:55am Start: 06-04-2017 End: 10-10-2022 take 10 mg by mouth twice daily Amlodipine Discontinue d 10 MG PO TWICE A DAY June 04, 2017 12:00am October 10, 2022 4:55am Comment on above: Take 1 tablet by ariela th once daily. atorvastatin 40 mg oral tablet (20 sources) HMG-CoA Reductase Inhibitor Start: 06-05-19 End: 04-02-19 take 1 tablet by mouth once daily at bedtime atorvastatin (LIPITOR) 40 mg tablet Indications: Mixed hyperlipidemia TAKE ONE TABLET BY MOUTH DAILY AT 9PM AT BEDTIME 30 tablet 5 04/02/2024 Active Comment on above: Take 1 tablet by ariela th daily at bedtime. TAKE ONE TABLET BY M OUT DAILY AT 9PM AT BEDTIME Blood Pressure Monitor (20 sources) Start: 05-12-19 Blood Pressure Monitor Indications: Unspecified essential hypertension 1 Each as needed. 1 Kit 05/11/2024 Active busPIRone hydrochloride 10 mg oral tablet (20 sources) Start: 06-18-19 take 1 tablet by mouth three times daily Buspirone 10 mg tablet Active 10 mg PO THREE TIMES A DAY July 26, 2024 12:00am Start: 10-28-2023 End: 06-14-2024 take 1 tablet by mouth three times daily busPIRone (BUSPAR) 10 mg tablet Take 1 tablet by mouth three times a day. 90 tablet 1 04/16/2024 06/14/2024 Discontinued Start: 10-07-2023 End: 10-28-2023 take 1 tablet by mouth three times daily busPIRone (BUSPAR) 5 mg tablet Take 1 tablet by mouth three times a day. 90 tablet 1 10/07/2023 10/28/2023 Discontinued Start: 08-05-2023 End: 10-05-2023 take 1 tablet by mouth three times daily busPIRone (BUSPAR) 5 mg tablet Take 1 tablet by mouth three times a day. 90 tablet 1 08/05/2023 10/05/2023 Discontinued Start: 05-11-2023 take 2 tablets by mo uth three times daily Buspirone 5 mg tablet Active 10 mg PO THREE TIMES A DAY May 11, 2023 1:00am Start: 05-02-2023 End: 08-03-2023 take 1 tablet by mouth three times daily busPIRone (BUSPAR) 5 mg tablet Take 1 tablet by mouth three times a day. 90 tablet 1 05/02/2023 08/03/2023 Discontinued Comment on above: Take 1 tablet by ariela th three times a day. cholecalciferol 0.05 mg oral tablet (20 sources) Vitamin D Start: 12-02-19 14 take 2 tablets by mouth once daily Cholecalciferol, Vitamin D3, 2,000 unit tab Take 2 tablets by mouth once daily. 0 12/01/2013 Active Comment on above: Take [address] [facility] once daily. dexlansoprazole 60 mg delayed release oral capsule (20 sources) Proton Pump Inhibitor Start: 03-09-19 End: 05-02-19 24 take 1 capsule by mouth once daily Dexlansoprazole (DEXILANT) 60 mg CpDM TAKE ONE CAPSULE BY MOUTH DAILY AT 9AM 90 capsule 2 05/02/2023 Active Comment on above: Take 60 mg by mouth once daily. TAKE ONE CAPSULE BY MOUTH DAILY AT 9AM Dexlansoprazole 60 mg capsule,biphase delayed releas (1 source) Start: 05-11-19 take 1 capsule by mouth once daily Dexlansoprazole 60 mg capsule,biphase delayed releas Active 60 mg PO DAILY May 11, 2023 1:00am enteric contrast (will be provided with radiology test) (1 source) Start: 02-02-20 End: 02-03-20 enteric contrast (will be provided with radiology test) Indications: Elevated lipase , Elevated amylase , RUQ pain , Nausea , Chronic diarrhea For CT ABD WO IVCON order Administer, As Directed One Time Only, via Oral, Rectal, both Oral and Rectal, Enteric Tube, Stoma or Indwelling Catheter, Enteric Contrast as designated per enteric contrast guidelines 1 Each 0 02/01/2022 02/02/2022 Active Comment on above: For CT ABD WO IVCON order Administer, As Directed One Time Only, via Oral, Rectal, both Oral and Rectal, Enteric Tube, Stoma or Indwelling Catheter, Enteric Contrast as designated per enteric contrast guidelines escitalopram 20 mg oral tablet (20 sources) Serotonin Reuptake Inhibitor Start: 11-19-19 End: 04-24-19 take 1 tablet by mouth once daily Escitalopram Oxalate (Lexapro) 20 mg tablet Active 20 mg PO DAILY July 26, 2024 12:00am Comment on above: Take 1 tablet by ariela once daily. Fluticasone Propion-Salmeterol (20 sources) Corticosteroid, beta2-Adrenergic Agonist Start: 07-27-19 Fluticasone Propion-Salmeterol 250-50 mcg/dose blister with device Active 1 NMA INHALATION TWICE A DAY July 26, 2024 12:00am Start: 01-16-2024 take 1 puff(s) by mo uth twice daily fluticasone-salmeterol (ADVAIR, WIXELA) 250-50 mcg/dose inhaler INHALE 1 PUFF BY MOUTH DIRECTED TWICE DAILY 3 Each 2 01/16/2024 Active Start: 07-05-2023 End: 01-16-2024 take 1 puff(s) by inhalation twice daily fluticasone-salmeterol (ADVAIR, WIXELA) 250-50 mcg/dose inhaler Inhale 1 Puff as instructed two times a day. 60 Each 5 07/05/2023 01/16/2024 Discontinued Start: 07-05-2023 take 1 puff(s) by in halation twice daily fluticasone-salmeterol (ADVAIR, WIXELA) 250-50 mcg/dose inhaler Inhale 1 Puff as instructed two times a day. 60 Each 5 07/05/2023 Active Start: 05-12-2022 End: 07-05-2023 take 1 puff(s) by inhalation twice daily fluticasone-salmeterol (ADVAIR, WIXELA) 250-50 mcg/dose inhaler Inhale 1 Puff as instructed twice daily. 60 Each 5 05/12/2022 07/05/2023 Discontinued Start: 05-12-2022 take 1 puff(s) by in halation twice daily fluticasone-salmeterol (ADVAIR, WIXELA) 250-50 mcg/dose inhaler Inhale 1 Puff as instructed twice daily. 60 Each 5 05/12/2022 Active Start: 07-10-2021 End: 05-10-2022 take 1 puff(s) by inhalation twice daily fluticasone-salmeterol (ADVAIR, WIXELA) 250-50 mcg/dose inhaler Inhale 1 Puff as instructed twice daily. 60 Each 5 07/10/2021 05/10/2022 Discontinued Start: 07-10-2021 take 1 puff(s) by in halation twice daily fluticasone-salmeterol (ADVAIR, WIXELA) 250-50 mcg/dose inhaler Inhale 1 Puff as instructed twice daily. 60 Each 07/10/2021 Active Start: 03-07-2021 End: 07-10-2021 take 1 puff(s) by mouth twice daily fluticasone-salmeterol (ADVAIR DISKUS) 250-50 mcg/dose inhaler Inhale 1 Puff as instructed twice daily. Rinse and gargle mouth after use with water. 1 Each 03/07/2021 07/10/2021 Discontinued Start: 03-07-2021 End: 07-10-2021 take 1 puff(s) by inhalation twice daily fluticasone-salmeterol (ADVAIR, WIXELA) 250-50 mcg/dose inhaler Inhale 1 Puff as instructed twice daily. 60 Each 07/10/2021 Active Comment on above: Inhale 1 Puff as ins tructed twice daily. Rinse and gargle mouth after use with water. Inhale 1 Puff as ins tructed twice daily. furosemide 40 mg oral tablet (20 sources) Loop Diuretic Start: 03-09-2024 End: 05-04-2024 take 1 tablet by mouth once daily Furosemide 40 mg tablet Active 40 mg PO DAILY July 26, 2024 12:00am Start: 10-31-2023 End: 03-07-2024 take 1 tablet by mouth once daily furosemide (LASIX) 40 mg tablet Indications: Essential hypertension TAKE ONE TABLET BY MOUTH DAILY AT 9AM Strength: 40 mg 90 tablet 3 10/31/2023 03/07/2024 Discontinued Start: 06-06-2023 End: 07-26-2024 take 1 tablet by mouth twice daily at mealtime Furosemide 40 mg tablet Discontinued 40 mg PO TWICE DAILY WITH MEALS 120 June 06, 2023 10:59am July 26, 2024 7:29pm Start: 07-15-2017 End: 10-10-2022 take 1 tablet by mouth once daily Furosemide 20 MG tablet Discontinued 20 mg PO DAILY July 15, 2017 12:00am October 10, 2022 4:56am Start: 06-04-2017 End: 10-29-2023 take 1 tablet by mouth once daily Furosemide 40 mg tablet Discontinued 40 mg PO DAILY May 11, 2023 1:00am June 06, 2023 10:59am Comment on above: Take 1 tablet by ariela th once daily. TAKE ONE TABLET BY M OUT DAILY AT 9AM hydrOXYzine hydrochloride 50 mg oral tablet (20 sources) Antihistamine Start: 05-11-19 take 1 tablet by mouth three times daily as needed for anxiety Hydroxyzine Hcl 50 mg tablet Active 50 mg PO THREE TIMES A DAY as needed for Anxiety May 11, 2023 1:00am Start: 10-10-2022 End: 06-04-2023 take 2 tablets by mouth every eight hours as needed for anxiety Hydroxyzine Hcl 25 mg tablet Discontinued 50 mg PO Q8H as needed for anxiety October 10, 2022 12:00am June 04, 2023 3:01pm Start: 10-10-2022 End: 06-04-2023 take 50 mg by mouth every eight hours Hydroxyzine Hcl Discontinued 50 MG PO Q8H October 10, 2022 12:00am June 04, 2023 3:01pm Start: 05-12-2022 End: 06-29-2024 take 1 tablet by mouth every eight hours as needed hydrOXYzine HCl (ATARAX) 50 mg tablet Take 1 tablet by mouth every 8 hours as needed for anxiety. 90 tablet 3 06/29/2024 Active Start: 01-03-2022 End: 05-10-2022 take 1 tablet by mouth every eight hours as needed hydrOXYzine HCl (ATARAX) 50 mg tablet Take 1 tablet by mouth every 8 hours as needed for anxiety. 90 tablet 3 01/03/2022 05/10/2022 Discontinued Start: 01-20-2021 End: 01-03-2022 take 2 tablets by mouth every eight hours as needed hydrOXYzine HCl (ATARAX) 25 mg tablet Take 2 tablets by mouth every 8 hours as needed. 90 tablet 5 01/20/2021 06/22/2021 Discontinued Comment on above: Take [address] [facility] every 8 hours as needed. Take 1 tablet by ariela th every 8 hours as needed for anxiety. ipratropium bromide 0.2 mg/ml inhalation solution (20 sources) Anticholinergic Start: 05-11-2024 End: 06-19-2024 ipratropium (ATROVENT) 0.02 % nebulizer solution Indications: Moderate persistent asthma without complication (HCC) , Chronic obstructive pulmonary disease, unspecified COPD type (HCC) Use 2.5 mL via nebulizer four times a day as needed for wheezing/shortness of breath. Use over 5-15minutes. Dx:J45.40 40 mL 2 06/19/2024 Active Start: 02-10-2020 End: 05-09-2024 ipratropium (ATROVENT) 0.02 % nebulizer solution Indications: Moderate persistent asthma without complication Use 2.5 mL via nebulizer four times daily as needed for Wheezing/Shortness of Breath. Use over 5-15minutes. Dx:J45.40 40 Vial 02/10/2020 05/09/2024 Discontinued Comment on above: Use 2.5 mL via nebul izer four times daily as needed for Wheezing/Shortness of Breath. Use over 5-15minutes. Dx:J45.40 lisinopril 40 mg oral tablet (20 sources) Angiotensin Converting Enzyme Inhibitor Start: 10-11-19 End: 05-20-19 take 2 tablets by mouth once daily Lisinopril 20 mg tablet Discontinued 40 mg PO DAILY October 10, 2022 12:00am May 20, 2023 11:25am Start: 10-10-2022 End: 05-20-2023 take 40 mg by mouth once daily Lisinopril Discontinued 40 MG PO DAILY October 10, 2022 12:00am May 20, 2023 11:25am Start: 10-01-2022 End: 05-02-2023 take 1 tablet by mouth once daily lisinopril (ZESTRIL) 20 mg tablet Indications: Essential hypertension Take 1 tablet by mouth once daily. 90 tablet 1 10/01/2022 02/06/2023 Discontinued Start: 12-07-2021 End: 10-01-2022 take 2 tablets by mouth once daily lisinopril (ZESTRIL, PRINIVIL) 20 mg tablet Indications: Essential hypertension Take 2 tablets by mouth once daily. 180 tablet 1 12/07/2021 10/01/2022 Discontinued Start: 07-26-2021 End: 12-05-2021 take 2 tablets by mouth once daily lisinopril (ZESTRIL, PRINIVIL) 20 mg tablet Indications: Essential hypertension Take 2 tablets by mouth once daily. 180 tablet 1 07/26/2021 12/05/2021 Discontinued Start: 07-06-2021 End: 07-26-2021 take 1 tablet by mouth once daily lisinopril (ZESTRIL, PRINIVIL) 20 mg tablet Indications: Essential hypertension TAKE 1 & 1/2 (ONE & ONE-HALF) TABLETS BY MOUTH ONCE DAILY 135 tablet 0 07/06/2021 07/14/2021 Discontinued Start: 03-23-2021 End: 07-06-2021 take 1.5 tablets by mouth once daily lisinopril (ZESTRIL, PRINIVIL) 20 mg tablet Indications: Essential hypertension Take 1.5 tablets by mouth once daily. 135 tablet 1 03/23/2021 07/06/2021 Discontinued Start: 07-26-2014 End: 04-24-2024 take 1 tablet by mouth once daily lisinopril (ZESTRIL) 40 mg tablet Indications: Essential hypertension Take 1 tablet by mouth once daily. 90 tablet 3 04/24/2024 Active Comment on above: Take 1.5 tablets by mouth once daily. TAKE 1 & 1/2 (ONE & ONE-HALF) TABLETS BY MOUTH ONCE DAILY TAKE 1 AND 1/2 TABLE TS BY MOUTH DAILY AT 9AM Take 2 tablets by mo mth once daily. Take 1 tablet by ariela once daily. loperamide hydrochloride 2 mg oral capsule (20 sources) Opioid Agonist Start: End: take 1 capsule by mouth three times daily as needed for diarrhea Loperamide 2 mg capsule Active 2 mg PO 3 TIMES DAILY NEEDED as needed for diarrhea July 26, 2024 12:00am Start: 10-07-2023 End: 03-07-2024 take 1 capsule by mouth every eight hours as needed loperamide (IMODIUM) 2 mg cap(s) Take 1 capsule by mouth three times a day as needed. 30 capsule 02/05/2024 03/07/2024 Discontinued Start: 05-28-2022 End: 10-05-2023 take 1 capsule by mouth every eight hours as needed loperamide (IMODIUM) 2 mg cap(s) Take 1 capsule by mouth three times daily as needed. 30 capsule 05/28/2022 10/24/2022 Discontinued Start: 12-07-2021 End: 05-25-2022 take 1 capsule by mouth every eight hours as needed loperamide (IMODIUM) 2 mg cap(s) Take 1 capsule by mouth three times daily as needed. 30 capsule 0 01/24/2022 05/25/2022 Discontinued Start: 05-05-2021 End: 12-05-2021 take 1 capsule by mouth every eight hours as needed loperamide (IMODIUM) 2 mg cap(s) Take 1 capsule by mouth three times daily as needed. 30 capsule 3 07/26/2021 12/05/2021 Discontinued Start: 01-27-2021 End: 04-06-2021 take 1 capsule by mouth every eight hours as needed loperamide (IMODIUM A-D) 2 mg cap(s) Take 1 capsule by mouth three times daily as needed. 30 capsule 1 01/27/2021 04/06/2021 Discontinued Comment on above: Take 1 capsule by mo uth three times daily as needed. Take 1 capsule by mo uth three times daily as needed meloxicam 15 mg oral tablet (20 sources) Nonsteroidal Anti-inflammatory Drug Start: 02-10-2024 End: 06-17-2024 take 1 tablet by mouth once daily meloxicam (MOBIC) 15 mg tablet Take 1 tablet by mouth once daily. 90 tablet 1 06/17/2024 Active Start: 10-18-2023 End: 12-12-2023 take 1 tablet by mouth twice daily meloxicam (MOBIC) 7.5 mg tablet Take 1 tablet by mouth two times a day. 60 tablet 11/12/2023 12/12/2023 Active Start: 09-02-2023 End: 10-02-2023 take 1 tablet by mouth twice daily meloxicam (MOBIC) 7.5 mg tablet Take 1 tablet by mouth two times a day. 60 tablet 0 09/02/2023 10/02/2023 Active Start: 10-10-2022 take 2 tablets by mo uth once daily Meloxicam 7.5 mg tablet Active 15 mg PO DAILY October 10, 2022 12:00am Start: 05-28-2022 End: 09-02-2023 take 1 tablet by mouth once daily meloxicam (MOBIC) 7.5 mg tablet Take 1 tablet by mouth once daily. 30 tablet 1 10/01/2022 12/27/2022 Discontinued Start: 02-01-2022 End: 05-25-2022 take 1 tablet by mouth once daily for pain meloxicam (MOBIC) 7.5 mg tablet Indications: Tendinitis of thumb Take 1 tablet by mouth once daily. for pain. Take with food. 30 tablet 0 04/25/2022 05/25/2022 Discontinued Comment on above: Take 1 tablet by ariela th once daily. for pain. Take with food. TAKE 1 TABLET BY ARIELA TH ONCE DAILY WITH FOOD FOR PAIN Take 1 tablet by ariela th once daily. Nebulizer Accessories kit (20 sources) Start: 07-08-2024 Nebulizer Accessories kit Indications: Uncomplicated asthma, unspecified asthma severity, unspecified whether persistent (HCC) 1 each every 4 hours as needed. Patient in need of mask and medication chamber for nebulizer 1 each 11 07/08/2024 Active Start: 06-19-2024 Nebulizer Acce ssories kit Indications: Moderate persistent asthma without complication (HCC) , Chronic obstructive pulmonary disease, unspecified COPD type (HCC) 1 each once daily. 50 each 2 06/19/2024 Active Start: 05-11-2024 End: 06-19-2024 Nebulizer Accessories kit In dications: Moderate persistent asthma without complication (HCC) , Chronic obstructive pulmonary disease, unspecified COPD type (HCC) 1 Each once daily. 50 Each 2 05/11/2024 06/19/2024 Discontinued Start: 05-11-2024 Nebulizer Acce ssories kit Indications: Moderate persistent asthma without complication (HCC) , Chronic obstructive pulmonary disease, unspecified COPD type (HCC) 1 Each once daily. 50 Each 2 05/11/2024 Active Start: 05-11-2024 Nebulizer Acce ssories kit Indications: Moderate persistent asthma without complication , Chronic obstructive pulmonary disease, unspecified COPD type (HCC) 1 Each once daily. 50 Each 2 05/11/2024 Active Nebulizer and Compressor For Neb (10 sources) Start: 06-19-2024 Nebulizer and Compressor For Neb Indications: Moderate persistent asthma without complication (HCC) , Chronic obstructive pulmonary disease, unspecified COPD type (HCC) 1 each every 4 hours as needed. 1 each 06/19/2024 Active nitroglycerin 0.4 mg sublingual tablet (20 sources) Nitrate Vasodilator Start: 06-04-2017 End: 10-01-2022 Nitroglycerin 0.4 MG tablet, sublingual Active 0.4 mg SL NEEDED as needed for CHEST PAIN June 04, 2017 12:00am Comment on above: Dissolve 1 tablet un brian the tongue as needed for Chest Pain. If no pain relief call 911. Dissolve 0.4 mg unde r the tongue every 5 minutes as needed for chest pain. ondansetron 4 mg disintegrating oral tablet (20 sources) Serotonin-3 Receptor Antagonist Start: 03-09-2024 take 1 tablet by mouth every eight hours as needed for nausea and nausea ondansetron orally disintegrating (ZOFRAN ODT) 4 mg disintegrating tablet Indications: Nausea Take 1 tablet by mouth every 8 hours as needed. 30 tablet 1 03/09/2024 Active Start: 10-30-2023 End: 03-07-2024 take 1 tablet by mouth every eight hours as needed for nausea and nausea ondansetron orally disintegrating (ZOFRAN ODT) 4 mg disintegrating tablet Indications: Nausea Take 1 tablet by mouth every 8 hours as needed. 30 tablet 1 01/17/2024 03/07/2024 Discontinued Start: 11-14-2022 End: 10-26-2023 take 1 tablet by mouth every eight hours as needed for nausea and nausea ondansetron orally disintegrating (ZOFRAN ODT) 4 mg disintegrating tablet Indications: Nausea Take 1 tablet by mouth every 8 hours as needed. 30 tablet 1 04/15/2023 10/26/2023 Discontinued Start: 06-04-2017 End: 10-10-2022 take 1 tablet by mouth every eight hours as needed for nausea Ondansetron 4 MG tablet Discontinued 4 mg PO EVERY 8 HOURS NEEDED as needed for Nausea June 04, 2017 12:00am October 10, 2022 4:56am Comment on above: Take 1 tablet by ariela th every 8 hours as needed. OXYGEN, HOME THERAPY, (20 sources) OXYGEN, HOME THERAPY, 2 L/min by Nasal Cannula route as directed. At night & 5 L/min when mobile Active microencapsulated potassium chloride 20 meq extended release oral tablet (20 sources) Start: End: take 1 tablet by mouth once daily potassium chloride ER (KLOR-CON) 20 mEq tablet Indications: Hypokalemia Take 1 tablet by mouth once daily. 30 tablet 1 01/03/2024 Active Start: 06-04-2017 End: 10-10-2022 Potassium Chloride (Klor-Con M20) 20 MEQ tablet,ER particles/crystals Discontinued 20 meq PO DAILY June 04, 2017 12:00am October 10, 2022 4:56am Comment on above: Take 20 mEq by mouth . predniSONE 20 mg oral tablet (20 sources) Start: 05-08-2024 predniSONE (DELTASONE) 20 mg tablet Please take the pill for 7 days followed by taking half the pill for another 7 days and stop. 12 tablet 05/08/2024 Active Start: 05-05-2024 End: 07-26-2024 take 2 tablets by mouth once daily Prednisone 20 mg tablet Discontinued 40 mg PO DAILY 4 May 05, 2024 1:00am July 26, 2024 7:24pm Start: 12-11-2023 End: 12-20-2023 predniSONE (DELTASONE) 10 mg tablet Take 4 tabs daily for 3 days, then 2 tabs daily for 3 days, then 1 tab daily for 3 days with food. 21 tablet 12/11/2023 12/20/2023 Active Start: 07-05-2023 End: 08-12-2023 take 1 tablet by mouth once daily predniSONE (DELTASONE) 10 mg tablet Take 1 tablet by mouth once daily for 21 days. 21 tablet 0 07/22/2023 08/12/2023 Start: 06-10-2023 End: 10-07-2023 predniSONE (DELTASONE) 10 mg tablet Take two tablets for one week then one table for one week then discontinue 21 tablet 0 06/10/2023 10/07/2023 Discontinued (Course of therapy completed) Start: 06-06-2023 End: 10-07-2023 take 1 tablet by mouth every twelve hours predniSONE (DELTASONE) 20 mg tablet Take 1 tablet by mouth every 12 hours. 0 06/06/2023 10/07/2023 Discontinued (Course of therapy completed) Start: 06-06-2023 End: 05-01-2024 take 1 tablet by mouth twice daily Prednisone 20 mg tablet Discontinued 20 mg PO TWICE A DAY June 06, 2023 12:00am May 01, 2024 9:06pm Start: 01-29-2023 End: 02-07-2023 predniSONE (DELTASONE) 10 mg tablet Take 4 tabs daily for 3 days, then 2 tabs daily for 3 days, then 1 tab daily for 3 days with food. 21 tablet 0 01/29/2023 02/07/2023 Active Start: 01-03-2022 End: 10-01-2022 take 1 tablet by mouth once daily predniSONE (DELTASONE) 10 mg tablet Take 1 tablet by mouth once daily. 4 tablet 0 01/03/2022 10/01/2022 Discontinued Start: 11-13-2021 End: 01-03-2022 take 1 tablet by mouth once daily predniSONE (DELTASONE) 20 mg tablet Take 1 tablet by mouth once daily. 4 tablet 0 11/13/2021 01/03/2022 Discontinued (Discontinued by Patient) Start: 10-06-2021 End: 10-18-2021 predniSONE (DELTASONE) 10 mg tablet Take 4 tabs daily x 3 days, then 3 tabs x 3 days, 2 tabs x 3 days, then 1 tab x3 days with food. 30 tablet 0 10/06/2021 10/18/2021 Active Start: 07-26-2021 End: 08-07-2021 predniSONE (DELTASONE) 10 mg tablet Take 4 tabs daily x 3 days, then 3 tabs x 3 days, 2 tabs x 3 days, then 1 tab x3 days with food. 30 tablet 0 07/26/2021 08/07/2021 Start: 05-14-2018 End: 10-10-2022 take 2 tablets by mouth once daily at mealtime Prednisone (Deltasone) 20 MG tablet Discontinued 40 mg PO DAILY May 14, 2018 12:00am October 10, 2022 4:56am With food Start: 06-04-2017 End: 10-10-2022 take 5 mg by mouth once daily Prednisone 10 MG tablet Discontinued 5 mg PO DAILY June 04, 2017 12:00am October 10, 2022 4:56am Start: 06-04-2017 End: 10-10-2022 take 5 mg by mouth once daily Prednisone Discontinued 5 MG PO DAILY June 04, 2017 12:00am October 10, 2022 4:56am Comment on above: Take 4 tabs daily x 3 days, then 3 tabs x 3 days, 2 tabs x 3 days, then 1 tab x3 days with food. Take 1 tablet by ariela th once daily. Take 4 tabs daily fo r 3 days, then 2 tabs daily for 3 days, then 1 tab daily for 3 days with food. Take 1 tablet by ariela th every 12 hours. Take two tablets for one week then one table for one week then discontinue pregabalin 150 mg oral capsule (20 sources) Start: End: take 1 capsule by mouth twice daily pregabalin (LYRICA) 150 mg capsule Indications: Pain syndrome, chronic Take 1 capsule by mouth two times a day for 90 days. 60 capsule 2 07/07/2024 10/05/2024 Active Start: 12-30-2023 End: 06-28-2024 take 1 capsule by mouth twice daily pregabalin (LYRICA) 100 mg capsule Indications: Pain syndrome, chronic Take 1 capsule by mouth two times a day for 90 days. 60 capsule 2 03/30/2024 04/02/2024 Discontinued Start: 11-06-2023 End: 05-04-2024 take 1 capsule by mouth twice daily pregabalin (LYRICA) 75 mg capsule Take 1 capsule by mouth two times a day for 180 days. 60 capsule 5 11/06/2023 12/30/2023 Discontinued Start: 06-11-2023 End: 12-08-2023 take 1 capsule by mouth twice daily pregabalin (LYRICA) 50 mg capsule Indications: Fibromyalgia Take 1 capsule by mouth two times a day for 180 days. 60 capsule 5 06/11/2023 11/06/2023 Discontinued Start: 05-11-2023 Pregabalin 25 mg capsule Active 150 mg PO TWICE A DAY May 11, 2023 1:00am Start: 04-11-2023 End: 06-11-2023 take 1 capsule by mouth twice daily pregabalin (LYRICA) 25 mg capsule Indications: Fibromyalgia Take 1 capsule by mouth two times a day for 60 days. 60 capsule 1 04/11/2023 06/11/2023 Discontinued Start: 10-10-2022 End: 06-04-2023 take 1 capsule by mouth every eight hours Pregabalin 200 mg capsule Discontinued 200 mg PO Q8H October 10, 2022 12:00am June 04, 2023 2:59pm Start: 02-19-2022 End: 10-21-2022 take 1 capsule by mouth three times daily Pregabalin (LYRICA) 200 mg capsule Indications: Fibromyalgia Take 1 capsule by mouth three times daily for 30 days. 90 capsule 09/21/2022 10/04/2022 Discontinued Start: 05-26-2021 End: 02-17-2022 Pregabalin (LYRICA) 200 mg c apsule Indications: Fibromyalgia Take 1 capsule by mouth three times daily for 180 days. Do not start before August 07, 2021. 90 capsule 5 08/07/2021 02/17/2022 Discontinued Start: 03-29-2021 End: 04-28-2021 take 1 capsule by mouth three times daily Pregabalin (LYRICA) 200 mg capsule Indications: Fibromyalgia Take 1 capsule by mouth three times daily for 30 days. Do not start before March 29, 2021. 90 capsule 03/29/2021 04/28/2021 Discontinued Start: 07-26-2014 End: 10-10-2022 Pregabalin (Lyrica) 150 MG c apsule Discontinued 200 mg PO THREE TIMES A DAY July 26, 2014 12:00am October 10, 2022 4:56am Comment on above: Take [address] [facility] three times daily for 30 days. Take [address] [facility] three times daily for 180 days. Do not start before August 07, 2021. Take [address] [facility] three times daily for 180 days. Q8H Take [address] [facility] two times a day for 60 days. Take [address] [facility] two times a day for 180 days. SUMAtriptan 50 mg oral tablet (20 sources) Serotonin-1b and Serotonin-1d Receptor Agonist Start: End: take 1 tablet by mouth every two hours as needed for headache SUMAtriptan (IMITREX) 50 mg tablet Take 1 tablet by mouth as needed for migraine headache (see administration instructions). START AT ONSET OF HEADACHE. MAY REPEAT DOSE AFTER 2 HOURS. 9 tablet 5 07/17/2024 Active Start: 07-22-2023 End: 03-07-2024 take 1 tablet by mouth every two hours as needed for headache SUMAtriptan (IMITREX) 50 mg tablet Take 1 tablet (50 mg) by mouth as needed for migraine headache (see administration instructions). START AT ONSET OF HEADACHE. MAY REPEAT DOSE AFTER 2 HOURS. 4 tablet 02/03/2024 03/07/2024 Discontinued Start: 12-07-2021 End: 07-20-2023 take 1 tablet by mouth every two hours as needed for headache SUMAtriptan (IMITREX) 50 mg tablet Take 1 tablet (50 mg) by mouth as needed for migraine headache (see administration instructions). START AT ONSET OF HEADACHE. MAY REPEAT DOSE AFTER 2 HOURS. 4 tablet 2 06/10/2023 07/20/2023 Discontinued Start: 08-01-2021 End: 11-09-2021 take 1 tablet by mouth every two hours as needed for headache SUMAtriptan (IMITREX) 50 mg tablet Take 1 tablet by mouth as needed for migraine headache (see administration instructions). START AT ONSET OF HEADACHE. MAY REPEAT DOSE AFTER 2 HOURS. 4 tablet 0 11/10/2021 Active Comment on above: Take 1 tablet by ariela th as needed for migraine headache (see administration instructions). START AT ONSET OF HEADACHE. MAY REPEAT DOSE AFTER 2 HOURS. Take 1 tablet (50 mg ) by mouth as needed for migraine headache (see administration instructions). START AT ONSET OF HEADACHE. MAY REPEAT DOSE AFTER 2 HOURS. tiZANidine 4 mg oral tablet (20 sources) Central alpha-2 Adrenergic Agonist Start: End: take 1 tablet by mouth every eight hours as needed tiZANidine (ZANAFLEX) 4 mg tablet Take 1 tablet by mouth every 8 hours as needed. 90 tablet 1 05/08/2024 Active Start: 08-24-2021 End: 12-05-2021 take 1 tablet by mouth every twenty-four hours as needed tiZANidine (ZANAFLEX) 4 mg tablet Take 1 tablet by mouth at bedtime as needed (muscle spasms). 30 tablet 2 08/24/2021 12/05/2021 Discontinued Start: 05-05-2021 End: 08-22-2021 take 1 tablet by mouth every twenty-four hours as needed tiZANidine (ZANAFLEX) 4 mg tablet Take 1 tablet by mouth at bedtime as needed (muscle spasms). 30 tablet 2 05/05/2021 08/22/2021 Discontinued Start: 03-07-2021 End: 04-06-2021 take 1 tablet by mouth every twenty-four hours as needed tiZANidine (ZANAFLEX) 4 mg tablet Take 1 tablet by mouth at bedtime as needed (muscle spasms). 30 tablet 03/07/2021 04/06/2021 Discontinued Comment on above: Take 1 tablet by ariela th at bedtime as needed (muscle spasms). TAKE ONE TABLET BY M OUTH AT BEDTIME NEEDED FOR MUSCLE SPASMS (VIAL) traZODone hydrochloride 50 mg oral tablet (20 sources) Serotonin Reuptake Inhibitor Start: End: take 1 tablet by mouth once daily at bedtime traZODone (DESYREL) 50 mg tablet Take 1 tablet by mouth daily at bedtime. 30 tablet 2 06/01/2024 Active Completed/Discontinued Medications Medication Drug Class(es) Dates Sig (Normalized) Sig (Original) acetaminophen 325 mg / HYDROcodone bitartrate 5 mg oral tablet (6 sources) Opioid Agonist Start: 11-14-2022 End: 05-11-2023 Hydrocodone-Acetami nophen 5-325 mg tablet Discontinued 1 {tbl} PO EVERY 6 HOURS NEEDED as needed for Pain 12 04November 14, 2022 May 11, 2023 3:25pm Start: 11-14-2022 End: 05-11-2023 take 1 tablet by mouth every six hours as needed Hydrocodone-Acetaminophen Discontinued 1 TABLET PO EVERY 6 HOURS NEEDED 12 04November 14, 2022 May 11, 2023 3:25pm acetaminophen 325 mg / oxyCODONE hydrochloride 5 mg oral tablet (1 source) Opioid Agonist Start: 09-27-2023 End: 05-01-2024 Oxycodone-Acetaminophen (Percocet) 5-325 mg tablet Discontinued 1 {tbl} PO EVERY 6 HOURS as needed for pain 02 03September 27, 2023 May 01, 2024 6:25pm 120 actuat albuterol 0.1 mg/actuat / ipratropium bromide 0.02 mg/actuat inhalation spray (20 sources) Anticholiner gic, beta2-Adrene rgic Agonist Start: 02-05-2020 End: 02-11-2023 take 20-100 ug by inhalation four times daily ipratropium 20 mcg-albuterol 100 mcg (COMBIVENT RESPIMAT) 20-100 mcg/actuation inhaler Indications: Moderate persistent asthma without complication Inhale 1 Puff as instructed four times daily. 90 g 3 02/05/2020 02/11/2023 Discontinued Start: 06-04-2017 End: 10-10-2022 take 1 puff(s) by inhalation four times daily as needed Ipratropium-Albuterol (Combivent Respimat) 1 PUFF inhaler Discontinued 1 NMA INHALATION 4 TIMES DAILY NEEDED as needed for Allergies June 04, 2017 12:00am October 10, 2022 4:56am Start: 06-04-2017 End: 10-10-2022 take 1 puff(s) by inhalation four times daily as needed Ipratropium-Albuterol (Combivent Respimat) 1 PUFF inhaler Discontinued 1 PUFF INHALATION 4 TIMES DAILY NEEDED June 04, 2017 12:00am October 10, 2022 4:56am Comment on above: Inhale 1 Puff as ins tructed four times daily. Albuterol Sulfate (Proair Hfa) 1 PUFF inhaler (12 sources) Start: 03-21-2015 End: 05-11-2023 Albuterol Sulfate (Proair Hfa) 1 PUFF inhaler Discontinued 1 NMA INHALATION EVERY 4 HOURS NEEDED as needed for Dyspnea/Wheezing/Sob March 21, 2015 1:00am May 11, 2023 3:24pm Start: 03-21-2015 End: 05-11-2023 take 1 puff(s) by inhalation every four hours as needed Albuterol Sulfate (Proair Hfa) 1 PUFF inhaler Discontinued 1 PUFF INHALATION EVERY 4 HOURS NEEDED March 21, 2015 1:00am May 11, 2023 3:24pm Start: 03-21-2015 take 1 puff(s) by in halation every four hours as needed Albuterol Sulfate (Proair Hfa) 1 PUFF inhaler Active 1 PUFF INHALATION EVERY 4 HOURS NEEDED March 21, 2015 12:00am Start: 03-21-2015 take 1 puff(s) by in halation every four hours as needed Albuterol Sulfate (Proair Hfa) 1 PUFF inhaler Active 1 PUFF INHALATION EVERY 4 HOURS NEEDED March 21, 2015 1:00am Start: 07-26-2014 Albuterol Sulf ate (Proair Hfa) 1 PUFF inhaler Active 2 NMA INHALATION EVERY 4 HOURS NEEDED as needed for Sob &/Or Wheezing July 26, 2014 12:00am Start: 07-26-2014 take 1 puff(s) by in halation every four hours as needed Albuterol Sulfate (Proair Hfa) 1 PUFF inhaler Active 2 PUFF INHALATION EVERY 4 HOURS NEEDED July 25, 2014 11:00pm Start: 07-26-2014 take 1 puff(s) by in halation every four hours as needed Albuterol Sulfate (Proair Hfa) 1 PUFF inhaler Active 2 PUFF INHALATION EVERY 4 HOURS NEEDED July 26, 2014 12:00am ALPRAZolam 1 mg oral tablet (12 sources) Benzodiazepine Start: 06-04-2017 End: 10-10-2022 take 1 tablet by mouth at bedtime Alprazolam (Xanax) 1 MG tablet Discontinued 1 mg PO AT BEDTIME July 15, 2017 6:03pm October 10, 2022 4:55am amoxicillin 875 mg / clavulanate 125 mg oral tablet (20 sources) Penicillin-class Antibacterial Start: 06-06-2023 End: 10-07-2023 take 1 tablet by mouth every twelve hours amoxicillin-clavul anate potassium (AUGMENTIN) 875-125 mg per tablet Take 1 tablet by mouth every 12 hours. 0 06/06/2023 10/07/2023 Discontinued (Course of therapy completed) Start: 06-06-2023 End: 09-27-2023 Amoxicillin-Pot Clavulanate 875-125 mg tablet Discontinued 1 {tbl} PO TWICE A DAY June 06, 2023 12:00am September 27, 2023 12:07pm Start: 06-06-2023 take 1 tablet by ariela th twice daily Amoxicillin-Pot Clavulanate Active 1 TABLET PO TWICE A DAY June 06, 2023 12:00am Start: 05-20-2023 End: 06-04-2023 Amoxicillin-Pot Clavulanate 875-125 mg tablet Discontinued 1 {tbl} PO TWICE A DAY May 194 12:00am June 04, 2023 2:58pm Start: 05-20-2023 End: 06-04-2023 take 1 tablet by mouth twice daily Amoxicillin-Pot Clavulanate Discontinued 1 TABLET PO TWICE A DAY 4 May 20, 2023 12:00am June 04, 2023 2:58pm Comment on above: Take 1 tablet by [facility] every 12 hours. amphetamine aspartate 5 mg / amphetamine sulfate 5 mg / dextroamphetamine saccharate 5 mg / dextroamphetamine sulfate 5 mg oral tablet (6 sources) Central Nervous System Stimulant Start: End: take 1 tablet by mouth once daily Dextroamphetamine-Am phetamine (Adderall 20 Mg Tablet) 20 MG tablet Discontinued 20 mg PO DAILY July 15, 2017 12:00am October 10, 2022 4:56am aspirin 81 mg chewable tablet (6 sources) Platelet Aggregation Inhibitor, Nonsteroidal Anti-inflammatory Drug Start: End: take 1 tablet by mouth once daily Aspirin 81 MG tablet,chewable Discontinued 81 mg PO DAILY@0800 June 04, 2017 12:00am October 10, 2022 4:55am atenolol 50 mg oral tablet (20 sources) beta-Adrenergic Mikhail Start: End: take 1 tablet by mouth once daily Atenolol 50 MG tablet Discontinued 50 mg PO DAILY June 04, 2017 12:00am October 10, 2022 4:55am Comment on above: Take 1 tablet by [facility] once daily. azithromycin 500 mg oral tablet (1 source) Macrolide Antimicrobial Start: End: take 1 tablet by mouth once daily Azithromycin 500 mg tablet Discontinued 500 mg PO DAILY 2 May 03, 2024 1:00am July 26, 2024 7:27pm betamethasone 3 mg/ml / betamethasone acetate 3 mg/ml injectable suspension (2 sources) Corticosteroid Start: End: betamethasone acetate-betamethason e sodium phosphate 3 mg injection (CELESTONE) Start: 02-10-2024 End: 02-10-2024 3 mg, Injection - FOR ORTHO USE ONLY, ONCE, 1 dose, Starting on Sat02/10/24 at 0901, Until Sat02/10/24 at 0901 cefpodoxime 200 mg oral tablet (6 sources) Cephalosporin Antibacterial Start: 11-14-2022 End: 05-11-2023 take 1 tablet by mouth twice daily at mealtime Cefpodoxime 200 mg tablet Discontinued 200 mg PO TWICE A DAY November 14, 2022 12:00am May 11, 2023 3:17pm must administer with a meal/food colestipol hydrochloride 1000 mg oral tablet (20 sources) Bile Acid Sequestrant Start: 08-23-2020 End: 10-07-2023 take 1 tablet by mouth twice daily colestipol (COLESTID) 1 gram tablet Take 1 tablet by mouth twice daily. 60 tablet 2 08/23/2020 06/22/2021 Discontinued Comment on above: Take 1 tablet by ariela th twice daily. TAKE ONE TABLET BY M OUT TWICE DAILY @ 9AM & 5PM COMPOUNDED PRESCRIPTION (20 sources) Start: 03-29-2015 End: 10-01-2022 COMPOUNDED PRESCRIPTION Oxygen Conserving Device for Ambulation 1 Each 0 03/29/2015 10/01/2022 Discontinued Start: 03-29-2015 End: 10-01-2022 COMPOUNDED PRESCRIPTION Home concentrator 1 Each 0 03/29/2015 10/01/2022 Discontinued Start: 03-29-2015 COMPOUNDED PRE SCRIPTION Oxygen Conserving Device for Ambulation 1 Each 0 03/29/2015 Active Start: 03-29-2015 COMPOUNDED PRE SCRIPTION Home concentrator 1 Each 0 03/29/2015 Active Comment on above: Oxygen Conserving De vice for Ambulation Home concentrator Dexlansoprazole (Dexilant) 60 MG capsule,biphase delayed releas (6 sources) Start: 018 End: 023 take 1 capsule by mouth once daily Dexlansoprazole (Dexilant) 60 MG capsule,biphase delayed releas Discontinued 60 mg PO DAILY June 04, 2017 12:00am October 10, 2022 4:56am Start: 06-04-2017 End: 10-10-2022 take 1 capsule by mouth once daily Dexlansoprazole (Dexilant) 60 MG capsule,biphase delayed releas Discontinued 60 MG PO DAILY June 03, 2017 11:00pm October 10, 2022 3:56am Start: 06-04-2017 End: 10-10-2022 take 1 capsule by mouth once daily Dexlansoprazole (Dexilant) 60 MG capsule,biphase delayed releas Discontinued 60 MG PO DAILY June 04, 2017 12:00am October 10, 2022 4:56am 12 hr dextromethorphan hydrobromide 30 mg / guaiFENesin 600 mg extended release oral tablet (4 sources) Uncompetitive I-mvjojf-N-aspartate Receptor Antagonist, Sigma-1 Agonist Start: 05-20-2023 End: 06-04-2023 Dextromethorphan-Guaifenesin (Mucinex Dm) 30-600 mg Tablet Extended Release 12 Hr Discontinued 2 {tbl} PO TWICE A DAY May 20, 2023 12:00am June 04, 2023 2:58pm diclofenac sodium 0.01 mg/mg topical gel (5 sources) Nonsteroidal Anti-inflammatory Drug Start: 01-24-2022 End: 01-24-2022 diclofenac (VOLTAREN ARTHRIT IS PAIN) 1 % topical gel Apply 2 g to affected area four times daily. 50 g 1 01/24/2022 01/24/2022 Discontinued Start: 01-24-2022 End: 02-01-2022 take 1 tablet by mouth twice daily as needed for pain diclofenac potassium (CATAFLAM) 50 mg tablet Indications: Stage 3a chronic kidney disease (HCC) Take 1 tablet by mouth twice daily as needed (pain/inflammation). Take with food. 15 tablet 0 01/24/2022 02/01/2022 Discontinued Comment on above: Take 1 tablet by [facility] twice daily as needed (pain/inflammation). Take with food. Apply 2 g to affecte d area four times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 L500.2500 #### [facility] [address] [place], [address] Glucose [Mass/Vol] 111 mg/dL High 70-99 [facility] Comment on above: Performed By: #### L 100.0100, L500.2500 #### [facility] [address] [place], [address] Potassium [Moles/Vol] 3.2 mmol/L Low 3.3-5.1 [facility] Comment on above: Performed By: #### L 100.0100, L500.2500 #### [facility] [address] [place], [address] Sodium [Moles/Vol] 142 mmol/L Normal 133-145 [facility] Comment on above: Performed By: #### L 100.0100, L500.2500 #### [facility] [address] [place], [address] Urea nitrogen [Mass/Vol] 22 mg/dL High 4-19 [facility] Comment on above: Performed By: #### L 100.0100, L500.2500 #### [facility] [address] [place], [address] CBC W/Diff, Automatedon 06-0 -2024 Absolute Lymph 1.48 X10 3/uL Normal 0.83-4.51 [facility] Comment on above: Performed By: #### L 100.0100, L500.2500 #### [facility] [address] [place], [address] Absolute Neut 9.6 X10 3/uL High 2.0-7.7 [facility] Comment on above: Performed By: #### L 100.0100, L500.2500 #### [facility] [address] [place], [address] Basophils/100 WBC (Bld) 0.2 % Normal 0-1 [facility] Comment on above: Performed By: #### L 100.0100, L500.2500 #### [facility] [address] [place], [address] Eosinophils/100 WBC (Bld) 1.5 % Normal 0-5 [facility] Comment on above: Performed By: #### L 100.0100, L500.2500 #### [facility] [address] [place], [address] Erythrocyte distribution width (RBC) [Ratio] 13.9 % Normal 11.6-14.6 [facility] Comment on above: Performed By: #### L 100.0100, L500.2500 #### [facility] [address] [place], [address] Hematocrit (Bld) [Volume fraction] 25.5 % Low 37-47 [facility] Comment on above: Performed By: #### L 100.0100, L500.2500 #### [facility] [address] [place], [address] Hemoglobin (Bld) [Mass/Vol] 8.3 g/dL Low 12.0-15.0 [facility] Comment on above: Performed By: #### L 100.0100, L500.2500 #### [facility] [address] [place], [address] IG% 1.300 High 0.0-0.9 [facility] Comment on above: Result Comment: IG% - Immature Granulocytes (promyelocytes, myelocytes and metamyelocytes) > 1% indicates that a LEFT SHIFT is Present. Performed By: #### L 100.0100, L500.2500 #### [facility] [address] [place], [address] Lymphocytes/100 WBC (Bld) 12.2 % Low 19-41 [facility] Comment on above: Performed By: #### L 100.0100, L500.2500 #### [facility] [address] [place], [address] MCH (RBC) [Entitic mass] 29.0 pg Normal 27.0-32.0 [facility] Comment on above: Performed By: #### L 100.0100, L500.2500 #### [facility] [address] [place], [address] MCHC (RBC) [Mass/Vol] 32.5 g/dL Normal 32-36 [facility] Comment on above: Performed By: #### L 100.0100, L500.2500 #### [facility] [address] [place], [address] MCV (RBC) [Entitic vol] 89.2 fL Normal 81-99 [facility] Comment on above: Performed By: #### L 100.0100, L500.2500 #### [facility] [address] [place], [address] Monocytes/100 WBC (Bld) 6.2 % Normal 0-10 [facility] Comment on above: Performed By: #### L 100.0100, L500.2500 #### [facility] [address] [place], [address] Neutrophils/100 WBC (Bld) 78.6 % High 47-70 [facility] Comment on above: Performed By: #### L 100.0100, L500.2500 #### [facility] [address] [place], [address] Nucleated RBC (Bld) [#/Vol] 0 10*3/uL Normal 0-5 [facility] Comment on above: Performed By: #### L 100.0100, L500.2500 #### [facility] [address] [place], [address] Platelet mean volume (Bld) [Entitic vol] 10.5 fL Normal 6.2-12.0 [facility] Comment on above: Performed By: #### L 100.0100, L500.2500 #### [facility] [address] [place], [address] Platelets (Bld) [#/Vol] 341 10*3/uL Normal 150-450 [facility] Comment on above: Performed By: #### L 100.0100, L500.2500 #### [facility] [address] [place], [address] RBC (Bld) [#/Vol] 2.86 10*6/uL Low 4.2-5.4 [facility] Comment on above: Performed By: #### L 100.0100, L500.2500 #### [facility] [address] [place], [address] RDW SD 45.8 fl High 35.1-43.9 [facility] Comment on above: Performed By: #### L 100.0100, L500.2500 #### [facility] [address] [place], [address] WBC (Bld) [#/Vol] 12.2 10*3/uL High 4.4-11.0 [facility] Comment on above: Performed By: #### L 100.0100, L500.2500 #### [facility] [address] [place], [address] Vancomycin, Trough Levelon 0 08-04-2024 VANCO, TROUGH 17.2 ug/mL High 5.0-15.0 [facility] Comment on above: Order Comment: Comme nts: Trough to be drawn 30 mins prior to scheduled [id number] Result Comment: Robin mmended goal trough ranges are generally 10-15 mcg/ml for less severe/complicated infections such as cellulitis or UTI and 15-20 mcg/ml for more severe/complicated infections such as bacteremia/sepsis, osteomyelitis, pneumonia or meningitis. Goal trough ranges should take into account indication, patient-specific factors and organism FLO. VANCOMYCIN STANDARED DRUG THERAPY TROUGH LEVEL: 5.0 - 15.0 mg/L VANCOMYCIN HIGH INTENSITY THERAPY TROUGH LEVEL: 15.0 - 20.0 mg/L High Intensity therapy recommended for serious life threatening infections include: - Meningitis -Endocarditis -Pneumonia (Ventilator/Healtcare Associated) -Sepsis PLEASE CONTACT PHARMACY SERVICES (#[id number]) FOR INTERPRETATION OF RESULTS. Performed By: #### L 500.2500, L100.0100, L501.4021, L503.7505 #### [facility] [address] [place], [address] Basic Metabolic Profile (BMP )on 08-03-2024 BUN/CRE 21.5 RATIO High 10-20 [facility] Comment on above: Performed By: #### L 500.2500, L100.0100 ####[facility] [address] [place], [address] Calcium [Mass/Vol] 8.3 mg/dL Normal 7.6-11.0 [facility] Comment on above: Performed By: #### L 500.2500, L100.0100 ####[facility] [address] [place], [address] Chloride [Moles/Vol] 108 mmol/L Normal 98-108 [facility] Comment on above: Performed By: #### L 500.2500, L100.0100 ####[facility] [address] [place], [address] CO2 [Moles/Vol] 22.6 mmol/L Normal 21.0-32.0 [facility] Comment on above: Performed By: #### L 500.2500, L100.0100 ####[facility] [address] [place], [address] Creatinine [Mass/Vol] 1.20 mg/dL Normal 0.70-1.20 [facility] Comment on above: Performed By: #### L 500.2500, L100.0100 ####[facility] [address] [place], [address] ECRCL 40.25 ml/min Low 50-250 [facility] Comment on above: Performed By: #### L 500.2500, L100.0100 ####[facility] [address] [place], [address] GAP 10 Normal 5-15 [facility] Comment on above: Performed By: #### L 500.2500, L100.0100 ####[facility] [address] [place], [address] GFR/1.73 sq M.predicted among non-blacks MDRD (S/P/Bld) [Vol rate/Area] 51 mL/min/{1.73_m2} Low >60 [facility] Comment on above: Result Comment: mL/m in/1.73m2 CKD-EPI Creatinine Equation (2020) Performed By: #### L 500.2500, L100.0100 ####[facility] [address] [place], [address] Glucose [Mass/Vol] 143 mg/dL High 70-99 [facility] Comment on above: Performed By: #### L 500.2500, L100.0100 ####[facility] [address] [place], [address] Potassium [Moles/Vol] 3.8 mmol/L Normal 3.3-5.1 [facility] Comment on above: Performed By: #### L 500.2500, L100.0100 ####[facility] [address] [place], [address] Sodium [Moles/Vol] 141 mmol/L Normal 133-145 [facility] Comment on above: Performed By: #### L 500.2500, L100.0100 ####[facility] [address] [place], [address] Urea nitrogen [Mass/Vol] 26 mg/dL High 4-19 [facility] Comment on above: Performed By: #### L 500.2500, L100.0100 ####[facility] [address] [place], [address] CBC W/Diff, Automatedon 06-0 2-2024 Absolute Lymph 1.30 X10 3/uL Normal 0.83-4.51 [facility] Comment on above: Performed By: #### L 500.2500, L100.0100 #### [facility] [address] [place], [address] Absolute Neut 7.7 X10 3/uL Normal 2.0-7.7 [facility] Comment on above: Performed By: #### L 500.2500, L100.0100 #### [facility] [address] [place], [address] Basophils/100 WBC (Bld) 0.0 % Normal 0-1 [facility] Comment on above: Performed By: #### L 500.2500, L100.0100 #### [facility] [address] [place], [address] Eosinophils/100 WBC (Bld) 0.1 % Normal 0-5 [facility] Comment on above: Performed By: #### L 500.2500, L100.0100 #### [facility] [address] [place], [address] Erythrocyte distribution width (RBC) [Ratio] 14.3 % Normal 11.6-14.6 [facility] Comment on above: Performed By: #### L 500.2500, L100.0100 #### [facility] [address] [place], [address] Hematocrit (Bld) [Volume fraction] 22.9 % Low 37-47 [facility] Comment on above: Performed By: #### L 500.2500, L100.0100 #### [facility] [address] [place], [address] Hemoglobin (Bld) [Mass/Vol] 7.4 g/dL Low 12.0-15.0 [facility] Comment on above: Performed By: #### L 500.2500, L100.0100 #### [facility] [address] [place], [address] IG% 0.900 Normal 0.0-0.9 [facility] Comment on above: Result Comment: IG% - Immature Granulocytes (promyelocytes, myelocytes and metamyelocytes) > 1% indicates that a LEFT SHIFT is Present. Performed By: #### L 500.2500, L100.0100 #### [facility] [address] [place], [address] Lymphocytes/100 WBC (Bld) 13.4 % Low 19-41 [facility] Comment on above: Performed By: #### L 500.2500, L100.0100 #### [facility] [address] [place], [address] MCH (RBC) [Entitic mass] 29.0 pg Normal 27.0-32.0 [facility] Comment on above: Performed By: #### L 500.2500, L100.0100 #### [facility] [address] [place], [address] MCHC (RBC) [Mass/Vol] 32.3 g/dL Normal 32-36 [facility] Comment on above: Performed By: #### L 500.2500, L100.0100 #### [facility] [address] [place], [address] MCV (RBC) [Entitic vol] 89.8 fL Normal 81-99 [facility] Comment on above: Performed By: #### L 500.2500, L100.0100 #### [facility] [address] [place], [address] Monocytes/100 WBC (Bld) 7.0 % Normal 0-10 [facility] Comment on above: Performed By: #### L 500.2500, L100.0100 #### [facility] [address] [place], [address] Neutrophils/100 WBC (Bld) 78.6 % High 47-70 [facility] Comment on above: Performed By: #### L 500.2500, L100.0100 #### [facility] [address] [place], [address] Nucleated RBC (Bld) [#/Vol] 0.2 10*3/uL Normal 0-5 [facility] Comment on above: Performed By: #### L 500.2500, L100.0100 #### [facility] [address] [place], [address] Platelet mean volume (Bld) [Entitic vol] 10.5 fL Normal 6.2-12.0 [facility] Comment on above: Performed By: #### L 500.2500, L100.0100 #### [facility] [address] [place], [address] Platelets (Bld) [#/Vol] 250 10*3/uL Normal 150-450 [facility] Comment on above: Performed By: #### L 500.2500, L100.0100 #### [facility] [address] [place], [address] RBC (Bld) [#/Vol] 2.55 10*6/uL Low 4.2-5.4 [facility] Comment on above: Performed By: #### L 500.2500, L100.0100 #### [facility] [address] [place], [address] RDW SD 46.9 fl High 35.1-43.9 [facility] Comment on above: Performed By: #### L 500.2500, L100.0100 #### [facility] [address] [place], [address] WBC (Bld) [#/Vol] 9.7 10*3/uL Normal 4.4-11.0 [facility] Comment on above: Performed By: #### L 500.2500, L100.0100 #### [facility] [address] [place], [address] Culture, Blood (WB)on 2024 CUB No growth in 48 hours. Normal [facility] Comment on above: Performed By: #### M 200.1000 ####[facility] [address] [place], [address] Vancomycin, Random Levelon 0 08-03-2024 VANCO, RANDOM 18.2 ug/mL High 0.0-15.0 [facility] Comment on above: Result Comment: VANC OMYCIN STANDARD DRUG THERAPY: CRITICAL VALUE IS > 15.0 mg/L VANCOMYCIN HIGH INTENSITY THERAPY: CRITICAL VALUE IS > 20.0 mg/L PLEASE CONTACT PHARMACY SERVICES (#[id number]) FOR INTERPRETATION OF RESULTS. THIS RESULT DOES NOT REPRESENT A PEAK OR TROUGH LEVEL FOR THIS DRUG. Performed By: #### L 500.2500, L100.0100, L501.4021, L503.7505 #### [facility] [address] [place], [address] Vancomycin, Trough Levelon 0 08-03-2024 VANCO, TROUGH 20.5 ug/mL High 5.0-15.0 [facility] Comment on above: Order Comment: Comme nts: Trough to be drawn 30 mins prior to scheduled [id number] Result Comment: Robin mmended goal trough ranges are generally 10-15 mcg/ml for less severe/complicated infections such as cellulitis or UTI and 15-20 mcg/ml for more severe/complicated infections such as bacteremia/sepsis, osteomyelitis, pneumonia or meningitis. Goal trough ranges should take into account indication, patient-specific factors and organism FLO. VANCOMYCIN STANDARED DRUG THERAPY TROUGH LEVEL: 5.0 - 15.0 mg/L VANCOMYCIN HIGH INTENSITY THERAPY TROUGH LEVEL: 15.0 - 20.0 mg/L High Intensity therapy recommended for serious life threatening infections include: - Meningitis -Endocarditis -Pneumonia (Ventilator/Healtcare Associated) -Sepsis PLEASE CONTACT PHARMACY SERVICES (#[id number]) FOR INTERPRETATION OF RESULTS. Performed By: #### L 500.2500, L100.0100, L501.4021, L503.7505 #### [facility] [address] [place], [address] Basic Metabolic Profile (BMP )on 08-02-2024 BUN/CRE 13.9 RATIO Normal 10-20 [facility] Comment on above: Performed By: #### L 500.2500, L100.0100, L501.4021, L503.7505 #### [facility] [address] [place], [address] Calcium [Mass/Vol] 8.3 mg/dL Normal 7.6-11.0 [facility] Comment on above: Performed By: #### L 500.2500, L100.0100, L501.4021, L503.7505 #### [facility] [address] [place], [address] Chloride [Moles/Vol] 108 mmol/L Normal 98-108 [facility] Comment on above: Performed By: #### L 500.2500, L100.0100, L501.4021, L503.7505 #### [facility] [address] [place], [address] CO2 [Moles/Vol] 20.8 mmol/L Low 21.0-32.0 [facility] Comment on above: Performed By: #### L 500.2500, L100.0100, L501.4021, L503.7505 #### [facility] [address] [place], [address] Creatinine [Mass/Vol] 1.32 mg/dL High 0.70-1.20 [facility] Comment on above: Performed By: #### L 500.2500, L100.0100, L501.4021, L503.7505 #### [facility] [address] [place], [address] ECRCL 36.60 ml/min Low 50-250 [facility] Comment on above: Performed By: #### L 500.2500, L100.0100, L501.4021, L503.7505 #### [facility] [address] [place], [address] GAP 14 Normal 5-15 [facility] Comment on above: Performed By: #### L 500.2500, L100.0100, L501.4021, L503.7505 #### [facility] [address] [place], [address] GFR/1.73 sq M.predicted among non-blacks MDRD (S/P/Bld) [Vol rate/Area] 45 mL/min/{1.73_m2} Low >60 [facility] Comment on above: Result Comment: mL/m in/1.73m2 CKD-EPI Creatinine Equation (2020) Performed By: #### L 500.2500, L100.0100, L501.4021, L503.7505 #### [facility] [address] [place], [address] Glucose [Mass/Vol] 170 mg/dL High 70-99 [facility] Comment on above: Performed By: #### L 500.2500, L100.0100, L501.4021, L503.7505 #### [facility] [address] [place], [address] Potassium [Moles/Vol] 3.1 mmol/L Low 3.3-5.1 [facility] Comment on above: Performed By: #### L 500.2500, L100.0100, L501.4021, L503.7505 #### [facility] [address] [place], [address] Sodium [Moles/Vol] 143 mmol/L Normal 133-145 [facility] Comment on above: Performed By: #### L 500.2500, L100.0100, L501.4021, L503.7505 #### [facility] [address] [place], [address] Urea nitrogen [Mass/Vol] 18 mg/dL Normal 4-19 [facility] Comment on above: Performed By: #### L 500.2500, L100.0100, L501.4021, L503.7505 #### [facility] [address] [place], [address] CBC W/Diff, Automatedon 06-0 SMEAR COMMENT Normal [facility] Comment on above: Result Comment: AUTO DIFF OK Performed By: #### L 500.2500, L100.0100, L501.4021, L503.7505 #### [facility] [address] [place], [address] 12 Lead EKGon 08-01-2024 12 Lead EKG [facility] [address] [place] [address] 12 Lead EKG 08/01/24 1301 MR#: [id number] Acct: [id number] Name: LEYDA LOPEZ Rep #: [id number] : 1960 63 From: Fareed Maxwell MD Attending Dr: Dr. Trey Joe DO Status: ADM IN Ordering Dr: Sid Hillman MD Date: 08/01/24 Location: [facility] Sex: F C Admitted: 07/26/24 Test Reason : ARYTHMIA Blood Pressure : */* mmHG Vent. Rate : 102 BPM Atrial Rate : 102 BPM P-R Int : 130 ms QRS Dur : 80 ms QT Int : 354 ms P-R-T Axes : 57 60 63 degrees QTcB Int : 461 ms Sinus tachycardia Otherwise normal ECG When compared with ECG of 01-May-2024 11:31, No significant change was found Confirmed by Fareed Maxwell ([id number]), senior editor GUSTAVO VICENTE ([id number]) on 08/04/2024 8:05:33 AM Referred By: RAFY Confirmed By: Fareed Maxwell 08/04/24 0805 Date Fareed Maxwell MD CC: SHMUEL RICE; Dr. Trey Joe DO; Dr. Sid Hillman MD Signed Normal [facility] Basic Metabolic Profile (BMP )on 08-01-2024 BUN/CRE 12.6 RATIO Normal 10-20 [facility] Comment on above: Performed By: #### L 500.2500, L100.0100 ####[facility] [address] [place], [address] Calcium [Mass/Vol] 7.3 mg/dL Low 7.6-11.0 [facility] Comment on above: Performed By: #### L 500.2500, L100.0100 ####[facility] [address] [place], [address] Chloride [Moles/Vol] 110 mmol/L High 98-108 [facility] Comment on above: Performed By: #### L 500.2500, L100.0100 ####[facility] [address] [place], [address] CO2 [Moles/Vol] 20.6 mmol/L Low 21.0-32.0 [facility] Comment on above: Performed By: #### L 500.2500, L100.0100 ####[facility] [address] [place], [address] Creatinine [Mass/Vol] 1.29 mg/dL High 0.70-1.20 [facility] Comment on above: Performed By: #### L 500.2500, L100.0100 ####[facility] [address] [place], [address] ECRCL 37.45 ml/min Low 50-250 [facility] Comment on above: Performed By: #### L 500.2500, L100.0100 ####[facility] [address] [place], [address] GAP 13 Normal 5-15 [facility] Comment on above: Performed By: #### L 500.2500, L100.0100 ####[facility] [address] [place], [address] GFR/1.73 sq M.predicted among non-blacks MDRD (S/P/Bld) [Vol rate/Area] 47 mL/min/{1.73_m2} Low >60 [facility] Comment on above: Result Comment: mL/m in/1.73m2 CKD-EPI Creatinine Equation (2020) Performed By: #### L 500.2500, L100.0100 ####[facility] [address] [place], [address] Glucose [Mass/Vol] 142 mg/dL High 70-99 [facility] Comment on above: Performed By: #### L 500.2500, L100.0100 ####[facility] [address] [place], [address] Potassium [Moles/Vol] 3.3 mmol/L Normal 3.3-5.1 [facility] Comment on above: Performed By: #### L 500.2500, L100.0100 ####[facility] [address] [place], [address] Sodium [Moles/Vol] 143 mmol/L Normal 133-145 [facility] Comment on above: Performed By: #### L 500.2500, L100.0100 ####[facility] [address] [place], [address] Urea nitrogen [Mass/Vol] 16 mg/dL Normal 4-19 [facility] Comment on above: Performed By: #### L 500.2500, L100.0100 ####[facility] [address] [place], [address] Blood Gases by [facility] 025 CARRIE TEST Positive Normal [facility] Comment on above: Performed By: #### L 9000.0800 ####[facility] [address] [place], [address] Base excess Calc (Bld) [Moles/Vol] 1 mmol/L Normal -2 to +2 [facility] Comment on above: Performed By: #### L 9000.0800 ####[facility] [address] [place], [address] Blood Gas Type ART Normal [facility] Comment on above: Performed By: #### L 9000.0800 ####[facility] [address] [place], [address] CO2 [Moles/Vol] 26 mmol/L Normal [facility] Comment on above: Performed By: #### L 9000.0800 ####[facility] [address] [place], [address] FI02 3.0 Normal [facility] Comment on above: Performed By: #### L 9000.0800 ####[facility] [address] [place], [address] HCO3 (Bld) [Moles/Vol] 24.9 mmol/L Normal 22-26 [facility] Comment on above: Performed By: #### L 9000.0800 ####[facility] [address] [place], [address] Mode Not entered Normal [facility] Comment on above: Performed By: #### L 9000.0800 ####[facility] [address] [place], [address] O2 Delivery Dev Cannula Normal [facility] Comment on above: Performed By: #### L 9000.0800 ####[facility] [address] [place], [address] pCO2 33.1 mmHg Low 35-45 [facility] Comment on above: Performed By: #### L 9000.0800 ####[facility] [address] [place], [address] pH (Bld) 7.48 [pH] High 7.35-7.45 [facility] Comment on above: Performed By: #### L 9000.0800 ####[facility] [address] [place], [address] PO2 90 mmHG Normal 75-100 [facility] Comment on above: Performed By: #### L 9000.0800 ####[facility] [address] [place], [address] SITE R Brach Normal [facility] Comment on above: Performed By: #### L 9000.0800 ####[facility] [address] [place], [address] SO2 98 Normal 95-99 [facility] Comment on above: Performed By: #### L 9000.0800 ####[facility] [address] [place], [address] CBC W/Diff, Automatedon 05-3 ATYPICAL LYMPH RARE Normal [facility] Comment on above: Performed By: #### L 500.2500, L100.0100 ####[facility] [address] [place], [address] SMEAR COMMENT SCANNED Normal [facility] Comment on above: Performed By: #### L 500.2500, L100.0100 ####[facility] [address] [place], [address] CRPon 08-01-2024 C-REACTIVE PROT 300.00 mg/L High 0.0-3.0 [facility] Comment on above: Performed By: #### L 500.2500, L100.0100, L501.4021, L503.7505 #### [facility] [address] [place], [address] Chest WITH Contraston 2024 Chest WITH Contrast [facility] Imaging Services [address] [place] [address] Chest WITH Contrast MR#: [id number] Acct: [id number] Name: LEYDA LOPEZ Rep #: [id number] : 1960 F 63 From: Shyam Gamble MD PCP: DALI RICE, CARPET BINDER-C Status: ADM IN Study: Chest WITH Contrast Date of Exam: 08/01/24 Exam# [id number] Ordering Dr: Sid Hillman MD PROCEDURE: CHEST WITH CONTRAST 08/01/2024 REASON FOR EXAM: FEVER OF UNKNOWN SOURCE TECHNIQUE: Prone and supine chest CT with intravenous contrast, high resolution CT (HRCT) protocol. Coronal and Sagittal reconstruction series were provided. CONTRAST: Isovue 370 VOLUME: 97 mL Gauge IV One or more dose reduction techniques were used (e.g., Automated exposure control, adjustment of the mA and/or kV according to patient size, use of iterative reconstruction technique). RADIATION DOSE SUMMARY: CTDlvol: 31.54 mGy DLP: 2473.64 mGycm COMPARISON: 05/17/2023. FINDINGS: Hardware: None. Lymph nodes: Prominent mediastinal lymph nodes. Heart and Vasculature: No visualized coronary artery calcifications. Lungs and Airways: Moderate right and small left pleural effusions. Right lower lobe density with enhancement greater than paraspinal musculature favoring atelectasis. Trace left atelectasis. Both have progressed since the prior CT. Lingular subpleural 4.7 x 1.9 cm mass abutting the mediastinum, similar in size. Adjacent nodular densities which are similar in size. Since 1 in the left lung apex measures 11 mm. Right apical ground-glass opacity which is similar to the prior. Upper Abdomen: Distended gallbladder. Bones: Degenerative changes of the spine. CT/Chest WITH Contrast IMPRESSION: Bilateral pleural effusions with associated atelectasis which have progressed since prior CT. Left lung mass in and nodular densities which are similar to the prior CT. Right lung ground-glass opacities which are similar to the prior CT. Details above. Reading Location: [id number] CC: SHMUEL RICE; Dr. Sid Hillman MD Regulatory Intern: Signed Normal [facility] Culture, Blood (WB)on 2024 CUB Blood cultures x2, f rom two different sites GRAM STAIN= GRAM POSITIVE COCCI IN CLUSTERS ANAEROBIC AEROBIC BOTTLES POSITIVE Culture, Blood (WB) RESULTS CALLED TO PEGGY 07/30/24 1350 Mariya Webb. REPORT READ BACK BY SAME. Culture, Blood (WB) Copy of report sent to Infection Control Printer MS#[id number] 08/01/24 1239 ASNIPES. Meth. resistant Staph. aureus Amount Growth Growth mecA Testing not performed Meth. resistant Staph. aureus: REACTION cefOXitin Susc Islt POS Doxycycline Islt FLO <=0.5 Clindamycin Islt FLO 0.25 S Clindamycin.induced Susc Islt NEG Erythromycin Islt FLO >=8 R Gentamicin Islt FLO <=0.5 S Linezolid Islt FLO 2 S Moxifloxacin Islt FLO <=0.25 S Oxacillin Susc Islt >=4 R Tetracycline Islt FLO <=1 S TMP SMX Islt FLO <=10 S Vancomycin Islt FLO 1 S Normal [facility] Comment on above: Performed By: #### M 200.1000, M100.636 ####[facility] [address] [place], [place], [address] Magnesiumon 08-01-2024 Magnesium [Mass/Vol] 1.3 mg/dL Low 1.5-2.2 [facility] Comment on above: Performed By: #### L 501.5200 ####[facility] [address] 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 TECHNIQUE: Lumbar spine CT with contrast. One or more dose reduction techniques were used (e.g., Automated exposure control, adjustment of the mA and/or kV according to patient size, use of iterative reconstruction technique). RADIATION DOSE SUMMARY: DLP: 1026.79 mGycm COMPARISON: None. FINDINGS: Vertebrae: No evidence acute fracture or dislocation. No abnormal enhancement. Alignment: L1-2: No significant central or neural foraminal stenosis. L2-3: No significant central neural foraminal stenosis. L3-4: No significant central or neural foraminal stenosis. L4-5: Grade 1 anterolisthesis, disc bulging common facet arthropathy resulting in severe central stenosis. Moderate bilateral neural foraminal stenosis. L5-S1: Mild disc bulging and facet arthropathy without significant central or neural foraminal stenosis. Degenerative changes of the sacroiliac joints. CT/Spine Lumbar WITH Contrast IMPRESSION: L4-5 spondylosis and spondylolisthesis. Details above. No definite abnormal enhancement. Reading Location: [id number] CC: SHMUEL RICE; Dr. Sid Hillman MD Regulatory Intern: Signed Normal [facility] Spine Thoracic WITH Contrast on 08-01-2024 Spine Thoracic WITH Contrast [facility] Imaging Services [address] [place], [place] [address] Spine Thoracic WITH Contrast MR#: [id number] Acct: [id number] Name: LEYDA LOPEZ Rep #: [id number] : 1960 F 63 From: Shyam Gamble MD PCP: SHMUEL PAGNA Status: ADM IN Study: Spine Thoracic WITH Contrast Date of Exam: Exam# [id number] Ordering Dr: Sid Hillman MD PROCEDURE: SPINE THORACIC WITH CONTRAST REASON FOR EXAM: LOWER BACK PAIN TECHNIQUE: Thoracic spine CT with intravenous contrast. Coronal and Sagittal reconstruction series were provided. One or more dose reduction techniques were used (e.g., Automated exposure control, adjustment of the mA and/or kV according to patient size, use of iterative reconstruction technique). RADIATION DOSE SUMMARY: DLP: 848.40 mGycm COMPARISON: None. FINDINGS: Alignment: Mildly exaggerated thoracic kyphosis. Bones: Wxrcshoj-gf-reksmy discogenic degenerative changes of the visualized spine. Soft Tissues: Moderate right and small left pleural effusions. Right basilar density and right apical ground-glass opacities suspicious for infection. Left apical nodular density also suspicious for infection. CT/Spine Thoracic WITH Contrast IMPRESSION: No acute osseous abnormalities. Spondylosis. Exaggerated kyphosis. Bilateral pleural effusions. Right basilar density and right apical ground-glass opacities suspicious for infection. Left apical micronodular opacities which may represent infection. Follow-up to resolution is recommended to exclude a neoplastic process. Reading Location: [id number] CC: SHMUEL RICE; Dr. Sid Hillman MD Regulatory Intern: Signed Normal [facility] Vancomycin, Trough Levelon 0 08-01-2024 VANCO, TROUGH 17.5 ug/mL High 5.0-15.0 [facility] Comment on above: Order Comment: Comme nts: Trough to be drawn 30 mins prior to scheduled [id number] Result Comment: Robin mmended goal trough ranges are generally 10-15 mcg/ml for less severe/complicated infections such as cellulitis or UTI and 15-20 mcg/ml for more severe/complicated infections such as bacteremia/sepsis, osteomyelitis, pneumonia or meningitis. Goal trough ranges should take into account indication, patient-specific factors and organism FLO. VANCOMYCIN STANDARED DRUG THERAPY TROUGH LEVEL: 5.0 - 15.0 mg/L VANCOMYCIN HIGH INTENSITY THERAPY TROUGH LEVEL: 15.0 - 20.0 mg/L High Intensity therapy recommended for serious life threatening infections include: - Meningitis -Endocarditis -Pneumonia (Ventilator/Healtcare Associated) -Sepsis PLEASE CONTACT PHARMACY SERVICES (#[id number]) FOR INTERPRETATION OF RESULTS. Performed By: #### L 500.2500, L100.0100, L501.4021, L503.7505 #### [facility] [address] [place], [address] Venous Duplex US - Sidney [facility] 08-01-2024 Venous Duplex US - Sidney Extrem [facility] Cardiovascular Services [address] [place] [address] Venous Duplex US - Sidney [facility] 08/03/24 1318 MR#: [id number] Acct: [id number] Name: LEYDA LOPEZ Rep #: [id number] : 1960 63 From: Demetri Monson MD Attending Dr: Dr. Trey Joe, Status: ADM IN Ordering Dr: Sid iHllman MD Date: 08/01/24 Location: PCU Sex: F C Admitted: 07/26/24 Reason For Study Reason For Study: Right arm pain Right Proximal Left Proximal Right jugular vein is spontaneous, widely patent, Left jugular vein is spontaneous, widely patent, phasic, with no intraluminal echogenicity noted. phasic, with no intraluminal echogenicity noted. Right subclavian vein is spontaneous, widely patent, Left subclavian vein is spontaneous, widely patent, phasic, with no intraluminal echogenicity noted. phasic, with no intraluminal echogenicity noted. Right Lower Arm Left Arm Right radial vein is compressible. Left axillary vein is spontaneous, patent, phasic, Right ulnar vein is compressible. competent, compressible and demonstrates Right Arm augmentation. Right axillary vein is spontaneous, patent, phasic, Left brachial vein is compressible. competent, compressible and demonstrates Left cephalic vein is compressible. augmentation. Basilic vein is compressible, PICC line noted. Right brachial vein is compressible. Left Lower Arm Acute superficial vein thrombosis is noted in the Left radial vein is compressible. right cephalic vein from distal bicep to wrist and Left ulnar vein is compressible. median cubital vein. It is NONCOMPRESSIBLE and dialted. Right basilic vein is compressible. Procedure This was a bilateral upper extremity venous doppler examination. Exam performed portable in patient room. A preliminary report was called and/or faxed to Meagan SILVA. VL/Venous Duplex US - Sidney Extrem Interpretation Summary Deep veins of the upper extremities are bilaterally patent and compressible segmentally. There is no evidence of deep vein thrombosis on either side. Acute superficial thrombophlebitis is noted in the right median cubital vein and the right cephalic vein from the distal bicep to the wrist. The right basilic vein is patent and compressible.The left basilic and cephalic veins are patent and compressible. A PICC catheter is visible in the left basilic vein. Ordering Physician: Sid Hillman Referring Physician: Dali Rice Performed By: Evelin Perez RVT ??? 08/03/24 9162 Date Demetri Monson MD CC: CONRAD-Ange RICE; Dr. Trey Joe DO; Dr. Sid Hillman MD Date Dictated: 08/03/24 1318 Date Transcribed: 08/03/242158 Regulatory Intern: Signed Normal [facility] Basic Metabolic Profile (BMP )on 07-31-2024 BUN/CRE 11.7 RATIO Normal 10-20 [facility] Comment on above: Performed By: #### L 500.2500, L100.0100, L501.4021, L503.7505 #### [facility] [address] [place], [address] Calcium [Mass/Vol] 7.3 mg/dL Low 7.6-11.0 [facility] Comment on above: Performed By: #### L 500.2500, L100.0100, L501.4021, L503.7505 #### [facility] [address] [place], [address] Chloride [Moles/Vol] 107 mmol/L Normal 98-108 [facility] Comment on above: Performed By: #### L 500.2500, L100.0100, L501.4021, L503.7505 #### [facility] [address] [place], [address] CO2 [Moles/Vol] 24.3 mmol/L Normal 21.0-32.0 [facility] Comment on above: Performed By: #### L 500.2500, L100.0100, L501.4021, L503.7505 #### [facility] [address] [place], [address] Creatinine [Mass/Vol] 1.08 mg/dL Normal 0.70-1.20 [facility] Comment on above: Performed By: #### L 500.2500, L100.0100, L501.4021, L503.7505 #### [facility] [address] [place], [address] ECRCL 44.73 ml/min Low 50-250 [facility] Comment on above: Performed By: #### L 500.2500, L100.0100, L501.4021, L503.7505 #### [facility] [address] [place], [address] GAP 12 Normal 5-15 [facility] Comment on above: Performed By: #### L 500.2500, L100.0100, L501.4021, L503.7505 #### [facility] [address] [place], [address] GFR/1.73 sq M.predicted among non-blacks MDRD (S/P/Bld) [Vol rate/Area] 58 mL/min/{1.73_m2} Low >60 [facility] Comment on above: Result Comment: mL/m in/1.73m2 CKD-EPI Creatinine Equation (2020) Performed By: #### L 500.2500, L100.0100, L501.4021, L503.7505 #### [facility] [address] [place], [address] Glucose [Mass/Vol] 101 mg/dL High 70-99 [facility] Comment on above: Performed By: #### L 500.2500, L100.0100, L501.4021, L503.7505 #### [facility] [address] [place], [address] Potassium [Moles/Vol] 2.8 mmol/L Low 3.3-5.1 [facility] Comment on above: Performed By: #### L 500.2500, L100.0100, L501.4021, L503.7505 #### [facility] [address] [place], [address] Sodium [Moles/Vol] 143 mmol/L Normal 133-145 [facility] Comment on above: Performed By: #### L 500.2500, L100.0100, L501.4021, L503.7505 #### [facility] [address] [place], [address] Urea nitrogen [Mass/Vol] 13 mg/dL Normal 4-19 [facility] Comment on above: Performed By: #### L 500.2500, L100.0100, L501.4021, L503.7505 #### [facility] [address] [place], [address] CBC W/Diff, Automatedon 05-3 0-2025 Absolute Lymph 0.79 X10 3/uL Low 0.83-4.51 [facility] Comment on above: Performed By: #### L 500.2500, L100.0100, L501.4021, L503.7505 #### [facility] [address] [place], [address] Absolute Neut 6.5 X10 3/uL Normal 2.0-7.7 [facility] Comment on above: Performed By: #### L 500.2500, L100.0100, L501.4021, L503.7505 #### [facility] [address] [place], [address] Basophils/100 WBC (Bld) 0.5 % Normal 0-1 [facility] Comment on above: Performed By: #### L 500.2500, L100.0100, L501.4021, L503.7505 #### [facility] [address] [place], [address] Eosinophils/100 WBC (Bld) 0.2 % Normal 0-5 [facility] Comment on above: Performed By: #### L 500.2500, L100.0100, L501.4021, L503.7505 #### [facility] [address] [place], [address] Erythrocyte distribution width (RBC) [Ratio] 14.0 % Normal 11.6-14.6 [facility] Comment on above: Performed By: #### L 500.2500, L100.0100, L501.4021, L503.7505 #### [facility] [address] [place], [address] Hematocrit (Bld) [Volume fraction] 24.5 % Low 37-47 [facility] Comment on above: Performed By: #### L 500.2500, L100.0100, L501.4021, L503.7505 #### [facility] [address] [place], [address] Hemoglobin (Bld) [Mass/Vol] 8.1 g/dL Low 12.0-15.0 [facility] Comment on above: Performed By: #### L 500.2500, L100.0100, L501.4021, L503.7505 #### [facility] [address] [place], [address] IG% 1.800 High 0.0-0.9 [facility] Comment on above: Result Comment: IG% - Immature Granulocytes (promyelocytes, myelocytes and metamyelocytes) > 1% indicates that a LEFT SHIFT is Present. Performed By: #### L 500.2500, L100.0100, L501.4021, L503.7505 #### [facility] [address] [place], [address] Lymphocytes/100 WBC (Bld) 9.4 % Low 19-41 [facility] Comment on above: Performed By: #### L 500.2500, L100.0100, L501.4021, L503.7505 #### [facility] [address] [place], [address] MCH (RBC) [Entitic mass] 30.1 pg Normal 27.0-32.0 [facility] Comment on above: Performed By: #### L 500.2500, L100.0100, L501.4021, L503.7505 #### [facility] [address] [place], [address] MCHC (RBC) [Mass/Vol] 33.1 g/dL Normal 32-36 [facility] Comment on above: Performed By: #### L 500.2500, L100.0100, L501.4021, L503.7505 #### [facility] [address] [place], [address] MCV (RBC) [Entitic vol] 91.1 fL Normal 81-99 [facility] Comment on above: Performed By: #### L 500.2500, L100.0100, L501.4021, L503.7505 #### [facility] [address] [place], [address] Monocytes/100 WBC (Bld) 10.9 % High 0-10 [facility] Comment on above: Performed By: #### L 500.2500, L100.0100, L501.4021, L503.7505 #### [facility] [address] [place], [address] Neutrophils/100 WBC (Bld) 77.2 % High 47-70 [facility] Comment on above: Performed By: #### L 500.2500, L100.0100, L501.4021, L503.7505 #### [facility] [address] [place], [address] Nucleated RBC (Bld) [#/Vol] 0 10*3/uL Normal 0-5 [facility] Comment on above: Performed By: #### L 500.2500, L100.0100, L501.4021, L503.7505 #### [facility] [address] [place], [address] Platelet mean volume (Bld) [Entitic vol] 10.7 fL Normal 6.2-12.0 [facility] Comment on above: Performed By: #### L 500.2500, L100.0100, L501.4021, L503.7505 #### [facility] [address] [place], [address] Platelets (Bld) [#/Vol] 150 10*3/uL Normal 150-450 [facility] Comment on above: Performed By: #### L 500.2500, L100.0100, L501.4021, L503.7505 #### [facility] [address] [place], [address] RBC (Bld) [#/Vol] 2.69 10*6/uL Low 4.2-5.4 [facility] Comment on above: Performed By: #### L 500.2500, L100.0100, L501.4021, L503.7505 #### [facility] [address] [place], [address] RDW SD 46.5 fl High 35.1-43.9 [facility] Comment on above: Performed By: #### L 500.2500, L100.0100, L501.4021, L503.7505 #### [facility] [address] [place], [address] WBC (Bld) [#/Vol] 8.4 10*3/uL Normal 4.4-11.0 [facility] Comment on above: Performed By: #### L 500.2500, L100.0100, L501.4021, L503.7505 #### [facility] [address] [place], [address] Consultation - Cardiologyon 07-31-2024 Consultation - Cardiology [facility] Medical Records Department [address] [place] [address] Consultation - Cardiology 07/31/24 1821 MR#: [id number] Acct: [id number] Name: LEYDA LOPEZ Rep #: [id number] : 1960 63 From: Sam Graves MD PCP: DALI RICE, CARPET BINDER-C Status:ADM IN Location: [facility] GN703-7 Assessment Plan Assessment/Plan (1) MRSA bacteremia: (2) Small bowel obstruction: (3) JOSE (acute kidney injury): (4) Smoking greater than 20 pack years: (5) Rheumatoid arthritis: (6) COPD (chronic obstructive pulmonary disease): PLAN: Cardiac care plan; 63-year-old patient seen and evaluated in the echo department Patient has history of longstanding rheumatoid arthritis Small bowel obstruction COPD Seen and evaluated by ED and been on antibiotic for sepsis/MRSA bacteremia. On antibiotic treatment with vancomycin Seems from review of the record possible pulmonary source as patient has a positive sputum for MRSA. patient has recent transthoracic echocardiogram, LV function preserved, moderate to large size mass noted in the LV Appears as a large papillary muscle No valvular vegetation noted on the transthoracic echocardiogram. Cardiac exam essentially normal no heart murmur. Patient refused/declined evaluation by transesophageal echocardiogram. Will sign off Sam Graves MD,[facility] HPI Consult Data Date of Consult: 07/31/24 HPI Narrative Reason for Consultation: Patient with MRSA/evaluate with JENNIFER HPI Narrative: LEYDA LOPEZ, is a 63 F who presents [facility] Medical History CHF (congestive heart failure) Anxiety Depression Kidney disease GERD (gastroesophageal reflux disease) Former smoker On home oxygen therapy Irregular heart beat Myocardial infarct Migraines Fibromyalgia NSTEMI (non-ST elevated myocardial infarction) Hypertension Rheumatoid arthritis Bipolar 1 disorder COPD (chronic obstructive pulmonary disease) COPD (chronic obstructive pulmonary disease) Home Medications ???Medication ???Instructions ???Recorded ???Last Taken ???Type albuterol sulfate 90 mcg/actuation 2 puff inhalation Q4H PRN PRN So b 07/26/14 06/06/17 History aerosol inhaler (ProAir HFA) /Or Wheezing nitroglycerin 0.4 mg sublingual 0.4 mg sublingual PRN PRN CHEST Unknown History tablet PAIN amitriptyline 100 mg tablet 150 mg PO QHS depresssion 10/10/22 04/30/24 History meloxicam 7.5 mg tablet 15 mg PO DAILY pain 10/10/2204/30 History sumatriptan succinate 50 mg tablet 50 mg PO PRN PRN migraine headac he 10/10/22 04/30/24 History ondansetron 4 mg disintegrating 4 mg PO Q8H PRN PRN Nausea #14 tab s 11/14/22 Unknown Rx tablet atorvastatin 40 mg tablet 40 mg PO QHS Cholesterol 05/11/23 04/30/24 History buspirone 5 mg tablet 10 mg PO TID Anxiety 05/11/2304/05 History dexlansoprazole 60 mg 60 mg PO DAILY GERD 05/11/23 Unkno wn History capsule,biphase delayed release escitalopram oxalate 20 mg tablet 20 mg PO DAILY depression 4 04/30/24 History hydroxyzine HCl 50 mg tablet 50 mg PO TID PRN Anxiety 05/11/23 04/30/24 History pregabalin 25 mg capsule 150 mg PO BID Nerve pain 05/11/23 04/30/24 History tizanidine 4 mg tablet 4 mg PO Q8H PRN PRN muscle spasm 0 05/11/23 04/30/24 History acetaminophen 325 mg tablet 1,000 mg (3.0769 x 325 mg) PO Q8H 05/20/23 Unknown Rx PRN PRN fever/pain 1-10 #0 tabs lisinopril 40 mg tablet 40 mg PO DAILY blood pressure 04/0 04/2704/30/24 History potassium chloride 20 mEq 20 meq PO DAILYCM diuretic use #30 06/06/23 04/30/24 Rx tablet,extended release(part/cryst) tabs trazodone 50 mg tablet 50 mg PO QHS insomnia 05/01/24 Unk nown History albuterol sulfate 2.5 mg/3 mL 2.5 mg inhalation Q4H PRN PRN 07/03 07/26 Unknown History (0.083 %) solution for nebulization wheezing buspirone 10 mg tablet 10 mg PO TID mental health 5 Unknown History escitalopram oxalate 20 mg tablet 20 mg PO DAILY depression 5 Unknown History (Lexapro) fluticasone 250 mcg-salmeterol 50 1 ea inhalation BID copd 07/26/24 Unknown History mcg/dose blistr powdr for inhalation furosemide 40 mg tablet 40 mg PO DAILY water pill 07/26/24 Unknown History loperamide 2 mg capsule 2 mg PO TID PRN PRN diarrhea 07/26 Unknown History Allergy/AdvReac Type Severity Reaction Status Date / Time methotrexate Allergy Other Verified 07/26/24 13:29 nadolol Allergy Unknown Verified 07/26/24 13:29 prochlorperazine Allergy PT UNABLE Verified 07/26/24 13:29 TO RESPOND-NEEDS F/U baclofen AdvReac Other Verified 07/26/24 13:29 lorazepam (From Ativan) AdvReac Nausea Verified 07/26/24 13:29 propranolol AdvReac Other Verified 07/26/24 13:29 Family History (Reviewed 07/31/24 @ 10 (more content not included)... Normal [facility] Consultation - Infectious Dx on 07-31-2024 Consultation - Infectious Dx [facility] Medical Records Department [address] [place] [address] Consultation - Infectious Dx 07/31/24 1037 MR#: [id number] Acct: [id number] Name: LEYDA LOPEZ Rep #: [id number] : 1960 63 From: Merrick White MD PCP: DALI RICE, CARPET BINDER-C Status:ADM IN Location: [facility] [place] [facility] Assessment Plan Assessment/Plan (1) MRSA bacteremia: (2) Small bowel obstruction: (3) Rheumatoid arthritis: (4) Sepsis: PLAN: sepsis with JOSE, MRSA bacteremia per pcr, and h/o COPD. Suspect pulmonary source given past sputum (+) for MRSA. Concern for endocarditis with LV mass seen on TTE; will order JENNIFER and cardiology consult. May need transfer for cardiac surgery eval. Also with thoracic spine tenderness, will order MRI. Cont vanc and repeat bcx today. Will follow, thank you (5) JOSE (acute kidney injury): HPI Consult Data Date of Consult: 07/31/24 HPI Narrative Reason for Consultation: bacteremia HPI Narrative: LEYDA LOPEZ, is a 63 F with RA on methotrexate, presented 07/26 with 2 days progressive abd pain, distension, not feeling well. Sx associated with nausea. CT showed SBO. Surgery consulted. NG placed. Developed fever 07/29, bcx sent, now Mrsa (+). Denies any wounds or skin infections. Some cough. Some new back pain. Started on vanc/zosyn. TTE done and showed LV mass. Full ROS performed and neg except as noted above. PFSH Medical History CHF (congestive heart failure) Anxiety Depression Kidney disease GERD (gastroesophageal reflux disease) Former smoker On home oxygen therapy Irregular heart beat Myocardial infarct Migraines Fibromyalgia NSTEMI (non-ST elevated myocardial infarction) Hypertension Rheumatoid arthritis Bipolar 1 disorder COPD (chronic obstructive pulmonary disease) COPD (chronic obstructive pulmonary disease) Home Medications ???Medication ???Instructions ???Recorded ???Last Taken ???Type albuterol sulfate 90 mcg/actuation 2 puff inhalation Q4H PRN PRN So b 07/26/14 06/06/17 History aerosol inhaler (ProAir HFA) /Or Wheezing nitroglycerin 0.4 mg sublingual 0.4 mg sublingual PRN PRN CHEST Unknown History tablet PAIN amitriptyline 100 mg tablet 150 mg PO QHS depresssion 10/10/22 04/30/24 History meloxicam 7.5 mg tablet 15 mg PO DAILY pain 10/10/2204/30 History sumatriptan succinate 50 mg tablet 50 mg PO PRN PRN migraine headac he 10/10/22 04/30/24 History ondansetron 4 mg disintegrating 4 mg PO Q8H PRN PRN Nausea #14 tab s 11/14/22 Unknown Rx tablet atorvastatin 40 mg tablet 40 mg PO QHS Cholesterol 05/11/23 04/30/24 History buspirone 5 mg tablet 10 mg PO TID Anxiety 05/11/2304/05 History dexlansoprazole 60 mg 60 mg PO DAILY GERD 05/11/23 Unkno wn History capsule,biphase delayed release escitalopram oxalate 20 mg tablet 20 mg PO DAILY depression 4 04/30/24 History hydroxyzine HCl 50 mg tablet 50 mg PO TID PRN Anxiety 05/11/23 04/30/24 History pregabalin 25 mg capsule 150 mg PO BID Nerve pain 05/11/23 04/30/24 History tizanidine 4 mg tablet 4 mg PO Q8H PRN PRN muscle spasm 0 05/11/23 04/30/24 History acetaminophen 325 mg tablet 1,000 mg (3.0769 x 325 mg) PO Q8H 05/20/23 Unknown Rx PRN PRN fever/pain 1-10 #0 tabs lisinopril 40 mg tablet 40 mg PO DAILY blood pressure 04/04/2704/30/24 History potassium chloride 20 mEq 20 meq PO DAILYCM diuretic use #30 06/06/23 04/30/24 Rx tablet,extended release(part/cryst) tabs trazodone 50 mg tablet 50 mg PO QHS insomnia 05/01/24 Unk nown History albuterol sulfate 2.5 mg/3 mL 2.5 mg inhalation Q4H PRN PRN 07/03 07/26 Unknown History (0.083 %) solution for nebulization wheezing buspirone 10 mg tablet 10 mg PO TID mental health 5 Unknown History escitalopram oxalate 20 mg tablet 20 mg PO DAILY depression 5 Unknown History (Lexapro) fluticasone 250 mcg-salmeterol 50 1 ea inhalation BID copd 07/26/24 Unknown History mcg/dose blistr powdr for inhalation furosemide 40 mg tablet 40 mg PO DAILY water pill 07/26/24 Unknown History loperamide 2 mg capsule 2 mg PO TID PRN PRN diarrhea 07/26 Unknown History Allergy/AdvReac Type Severity Reaction Status Date / Time methotrexate Allergy Other Verified 07/26/24 13:29 nadolol Allergy Unknown Verified 07/26/24 13:29 prochlorperazine Allergy PT UNABLE Verified 07/26/24 13:29 TO RESPOND-NEEDS F/U baclofen AdvReac Other Verified 07/26/24 13:29 lorazepam (From Ativan) AdvReac Nausea Verified 07/26/24 13:29 propranolol AdvReac Other Verified 07/26/24 13:29 Family History Other COPD (chronic obstructive pulmonary disease) Surgical History ... Normal [facility] Magnesiumon 07-31-2024 Magnesium [Mass/Vol] 1.3 mg/dL Low 1.5-2.2 [facility] Comment on above: Performed By: #### L 500.2500, L100.0100, L501.4021, L503.1726 #### [facility] [address] [place], [address] BC GPC IDon 07-30-2024 BC GPC ID RESULTS CALLED TO JULES TEJEDA 07/30/241928 Michelle Lew. REPORT READ BACK BY . Microorganism Spec Cult Copy of report sent to Infection Control Printer [id number] 07/30/241929 KATLIN. Enterococcus sp. Not Detected Listeria spp Not Detected NAAT METHOD Testing was performed using nucleic acid amplification Staphylococcus sp. A DETECTED A Streptococcus spp. Not Detected mecA A mecA Resistance Marker Detected A J Carlos/vanB Not Detected Meth. resistant Staph. aureus mecA A mecA Resistance Marker Detected A Normal [facility] Comment on above: Performed By: #### L 500.2500, L100.0100, L501.4021, L503.7505 #### [facility] [address] [place], [address] Basic Metabolic Profile (BMP )on 07-30-2024 BUN/CRE 11.5 RATIO Normal 10-20 [facility] Comment on above: Performed By: #### L 500.2500, L100.0100, L501.4021, L503.7505 #### [facility] [address] [place], [address] Calcium [Mass/Vol] 7.8 mg/dL Normal 7.6-11.0 [facility] Comment on above: Performed By: #### L 500.2500, L100.0100, L501.4021, L503.7505 #### [facility] [address] [place], [address] Chloride [Moles/Vol] 106 mmol/L Normal 98-108 [facility] Comment on above: Performed By: #### L 500.2500, L100.0100, L501.4021, L503.7505 #### [facility] [address] [place], [address] CO2 [Moles/Vol] 23.6 mmol/L Normal 21.0-32.0 [facility] Comment on above: Performed By: #### L 500.2500, L100.0100, L501.4021, L503.7505 #### [facility] [address] [place], [address] Creatinine [Mass/Vol] 0.90 mg/dL Normal 0.70-1.20 [facility] Comment on above: Performed By: #### L 500.2500, L100.0100, L501.4021, L503.7505 #### [facility] [address] [place], [address] ECRCL 53.67 ml/min Normal 50-250 [facility] Comment on above: Performed By: #### L 500.2500, L100.0100, L501.4021, L503.7505 #### [facility] [address] [place], [address] GAP 13 Normal 5-15 [facility] Comment on above: Performed By: #### L 500.2500, L100.0100, L501.4021, L503.7505 #### [facility] [address] [place], [address] GFR/1.73 sq M.predicted among non-blacks MDRD (S/P/Bld) [Vol rate/Area] 72 mL/min/{1.73_m2} Normal >60 [facility] Comment on above: Result Comment: mL/m in/1.73m2 CKD-EPI Creatinine Equation (2020) Performed By: #### L 500.2500, L100.0100, L501.4021, L503.7505 #### [facility] [address] [place], [address] Glucose [Mass/Vol] 125 mg/dL High 70-99 [facility] Comment on above: Performed By: #### L 500.2500, L100.0100, L501.4021, L503.7505 #### [facility] [address] [place], [address] Potassium [Moles/Vol] 3.0 mmol/L Low 3.3-5.1 [facility] Comment on above: Performed By: #### L 500.2500, L100.0100, L501.4021, L503.7505 #### [facility] [address] [place], [address] Sodium [Moles/Vol] 143 mmol/L Normal 133-145 [facility] Comment on above: Performed By: #### L 500.2500, L100.0100, L501.4021, L503.7505 #### [facility] [address] [place], [address] Urea nitrogen [Mass/Vol] 10 mg/dL Normal 4-19 [facility] Comment on above: Performed By: #### L 500.2500, L100.0100, L501.4021, L503.7505 #### [facility] [address] [place], [address] CBC W/Diff, Automatedon 05-2 Absolute Lymph 0.75 X10 3/uL Low 0.83-4.51 [facility] Comment on above: Performed By: #### L 500.2500, L100.0100, L501.4021, L503.7505 #### [facility] [address] [place], [address] Absolute Neut 8.6 X10 3/uL High 2.0-7.7 [facility] Comment on above: Performed By: #### L 500.2500, L100.0100, L501.4021, L503.7505 #### [facility] [address] [place], [address] Basophils/100 WBC (Bld) 0.3 % Normal 0-1 [facility] Comment on above: Performed By: #### L 500.2500, L100.0100, L501.4021, L503.7505 #### [facility] [address] [place], [address] Eosinophils/100 WBC (Bld) 1.9 % Normal 0-5 [facility] Comment on above: Performed By: #### L 500.2500, L100.0100, L501.4021, L503.7505 #### [facility] [address] [place], [address] Erythrocyte distribution width (RBC) [Ratio] 13.6 % Normal 11.6-14.6 [facility] Comment on above: Performed By: #### L 500.2500, L100.0100, L501.4021, L503.7505 #### [facility] [address] [place], [address] Hematocrit (Bld) [Volume fraction] 27.4 % Low 37-47 [facility] Comment on above: Performed By: #### L 500.2500, L100.0100, L501.4021, L503.7505 #### [facility] [address] [place], [address] Hemoglobin (Bld) [Mass/Vol] 9.1 g/dL Low 12.0-15.0 [facility] Comment on above: Performed By: #### L 500.2500, L100.0100, L501.4021, L503.7505 #### [facility] [address] [place], [address] IG% 1.200 High 0.0-0.9 [facility] Comment on above: Result Comment: IG% - Immature Granulocytes (promyelocytes, myelocytes and metamyelocytes) > 1% indicates that a LEFT SHIFT is Present. Performed By: #### L 500.2500, L100.0100, L501.4021, L503.7505 #### [facility] [address] [place], [address] Lymphocytes/100 WBC (Bld) 7.0 % Low 19-41 [facility] Comment on above: Performed By: #### L 500.2500, L100.0100, L501.4021, L503.7505 #### [facility] [address] [place], [address] MCH (RBC) [Entitic mass] 30.0 pg Normal 27.0-32.0 [facility] Comment on above: Performed By: #### L 500.2500, L100.0100, L501.4021, L503.7505 #### [facility] [address] [place], [address] MCHC (RBC) [Mass/Vol] 33.2 g/dL Normal 32-36 [facility] Comment on above: Performed By: #### L 500.2500, L100.0100, L501.4021, L503.7505 #### [facility] [address] [place], [address] MCV (RBC) [Entitic vol] 90.4 fL Normal 81-99 [facility] Comment on above: Performed By: #### L 500.2500, L100.0100, L501.4021, L503.7505 #### [facility] [address] [place], [address] Monocytes/100 WBC (Bld) 9.4 % Normal 0-10 [facility] Comment on above: Performed By: #### L 500.2500, L100.0100, L501.4021, L503.7505 #### [facility] [address] [place], [address] Neutrophils/100 WBC (Bld) 80.2 % High 47-70 [facility] Comment on above: Performed By: #### L 500.2500, L100.0100, L501.4021, L503.7505 #### [facility] [address] [place], [address] Nucleated RBC (Bld) [#/Vol] 0 10*3/uL Normal 0-5 [facility] Comment on above: Performed By: #### L 500.2500, L100.0100, L501.4021, L503.7505 #### [facility] [address] [place], [address] Platelet mean volume (Bld) [Entitic vol] 10.6 fL Normal 6.2-12.0 [facility] Comment on above: Performed By: #### L 500.2500, L100.0100, L501.4021, L503.7505 #### [facility] [address] [place], [address] Platelets (Bld) [#/Vol] 158 10*3/uL Normal 150-450 [facility] Comment on above: Performed By: #### L 500.2500, L100.0100, L501.4021, L503.7505 #### [facility] [address] [place], [address] RBC (Bld) [#/Vol] 3.03 10*6/uL Low 4.2-5.4 [facility] Comment on above: Performed By: #### L 500.2500, L100.0100, L501.4021, L503.7505 #### [facility] [address] [place], [address] RDW SD 45.0 fl High 35.1-43.9 [facility] Comment on above: Performed By: #### L 500.2500, L100.0100, L501.4021, L503.7505 #### [facility] [address] [place], [address] WBC (Bld) [#/Vol] 10.7 10*3/uL Normal 4.4-11.0 [facility] Comment on above: Performed By: #### L 500.2500, L100.0100, L501.4021, L503.7505 #### [facility] [address] [place], [address] Echo Complete W/ Contraston 07-30-2024 Echo Complete W/ Contrast [facility] [address] [place] [address] Echo Complete W/ Contrast 07/30/24 1347 MR#: [id number] Acct: [id number] Name: LEYDA LOPEZ Rep #: [id number] : 1960 63 From: Sam Graves MD Attending Dr: Dr. Dolly Daniels MD Status: AD M IN Ordering Dr: Dolly Daniels MD Date: 07/30/24 Location: [facility] Sex: F C Admitted: 07/26/24 Reason For Study Reason For Study: ENDOCARDITIS Procedure This was a 2D Doppler, Color Flow transthoracic echocardiogram. The study was technically difficult. Patient was uncooperative. Contrast injection was performed. Exam performed portable in patient room. Left Ventricle Large mass noted in the LV/large papillary muscle. The estimated ejection fraction is 55-60 %. Right Ventricle Normal right ventricle. Normal systolic function. Atria Normal left atrium. Normal right atrium. Mitral Valve The mitral valve is structurally normal. No prolapse or stenosis seen. Tricuspid Valve Normal tricuspid valve. Aortic Valve The aortic valve is not well visualized in the short axis view. Pulmonic Valve The pulmonic valve is not well visualized. Great Vessels The aortic root is not well visualized. Pericardium/Pleural No pericardial effusion. Medication Diluted definity 3ml given slow IV push to enhance endocardial definition. MMode/2D Measurements Calculations LAV(MOD-bp): 42.5 ml SV(MOD-sp4): 23.1 ml LVAd ap4: 22.5 cm2 LAV(MOD-bp) Indexed: 27.0 ml/m2 LVLd ap4: 7.1 cm SI(MOD-sp4): 14.7 ml/m2 LAV(MOD-sp2): 50.7 ml EDV(MOD-sp4): 59.5 ml LAV(MOD-sp4): 35.0 ml EDV(sp4-el): 60.7 ml LVAs ap4: 17.0 cm2 LVLs ap4: 6.8 cm ESV(MOD-sp4): 36.4 ml ESV(sp4-el): 36.1 ml EF(MOD-sp4): 38.9 % EF(sp4-el): 40.5 % SV(sp4-el): 24.6 ml LA A4 area: 16.3 cm2 RA A4 area: 8.5 cm2 Doppler Measurements Calculations MV E max anoop: 110.6 cm/sec Ao V2 max: 162.2 cm/sec LV V1 max: 147.0 cm/sec Ao max P.5 mmHg LV V1 max P.7 mmHg Ao V2 mean: 114.6 cm/sec LV V1 mean P.8 mmHg Ao mean P.1 mmHg LV V1 mean: 99.0 cm/sec Ao V2 VTI: 22.6 cm LV V1 VTI: 21.3 cm AV (velocity ratio): 0.95 TR max anoop: 359.3 cm/sec TR max P.6 mmHg ECHO/Echo Complete W/ Contrast Interpretation Summary Large mass noted in the LV/large papillary muscle The estimated ejection fraction is 55-60 %. No previous study to compare Recommendation; consider JENNIFER evaluation Ordering Physician: Dolly Daniels Referring Physician: DALI RICE Performed By: Susanna Walker and Student 07/30/24 1615 Date Sam Graves MD CC: CARPET BINDER-C DALI RICE; Dr. Dolly Daniels MD Date Dictated: 07/30/24 1347 Date Transcribed: 07/30/24 161 Regulatory Intern: Signed Normal [facility] Legionella Antigen Urineon 0 07-30-2024 LEGU URINE, CLEAN CATCH Legionella Antigen result interpretation: L pneumo Ag Ur Ql Negative Presumptive negative for Legionella pneumophila serogroup 1 antigen in urine, suggesting no recent or current infection. Legionella Ag, Urine Negative (See interpretation below) [facility] Comment on above: Performed By: #### M 300.6660, M300.4600 ####[facility] [address] [place], [address] RESPIRATORY PANEL MOLECULARo n 07-30-2024 RP PANEL ADENOVIRUS Not Detected INFLUENZA A Not Detected INFLUENZA A (SUBTYPE H1) Not Detected INFLUENZA A (SUBTYPE H3) Not Detected INFLUENZA B Not Detected HUMAN METAPHNEUMO Not Detected PARAINFLUENZA 1 Not Detected PARAINFLUENZA 2 Not Detected PARAINFLUENZA 3 Not Detected PARAINFLUENZA 4 Not Detected RHINOVIRUS Not Detected RSV A Not Detected RSV B Not Detected Normal [facility] Comment on above: Performed By: #### L 500.2500, L100.0100, L501.4021, L503.5399 #### [facility] [address] [place], [address] Strep pneumoniae Antig(UR,CS F)on 07-30-2024 STPAG URINE INTERPRETATION Strep pneumoniae Antig(UR,CSF) Strep pneumoniae Antig(UR,CSF) Negative Urine Presumptive negative for pneumococcal pneumonia, suggesting no current or recent pneumococcal infection. Infection due to S pneumoniae cannot be ruled out since the antigen present in the sample may be below the detection limit of the test. Strep pneumo Test Negative URINE (See interpretation below) Normal [facility] Comment on above: Performed By: #### M 300.4500, M300.4600 ####[facility] [address] [place], [address] Urinalysis, Completeon 07-30 EPI,SQUAMOUS 0-5 SEEN Normal 5-10 [facility] Comment on above: Order Comment: Urine , Random Performed By: #### L 500.2500, L100.0100, L501.4021, L503.7505 #### [facility] [address] [place], [address] RBC 0-5 SEEN Normal 0-5 [facility] Comment on above: Order Comment: Urine , Random Performed By: #### L 500.2500, L100.0100, L501.4021, L503.7505 #### [facility] [address] [place], [address] WBC 0-5 SEEN Normal 0-5 [facility] Comment on above: Order Comment: Urine , Random Performed By: #### L 500.2500, L100.0100, L501.4021, L503.7505 #### [facility] [address] [place], [address] BACTERIA 0 SEEN Normal None Seen [facility] Comment on above: Order Comment: Urine , Random Performed By: #### L 500.2500, L100.0100, L501.4021, L503.7505 #### [facility] [address] [place], [address] Mucus Ql (Urine sed) 0 SEEN Normal [facility] Comment on above: Order Comment: Urine , Random Performed By: #### L 500.2500, L100.0100, L501.4021, L503.7505 #### [facility] [address] [place], [address] Basic Metabolic Profile (BMP )on 07-29-2024 BUN/CRE 16.4 RATIO Normal 10-20 [facility] Comment on above: Performed By: #### L 500.2500, L100.0100, L501.4021, L503.7505 #### [facility] [address] [place], [address] Calcium [Mass/Vol] 8.3 mg/dL Normal 7.6-11.0 [facility] Comment on above: Performed By: #### L 500.2500, L100.0100, L501.4021, L503.7505 #### [facility] [address] [place], [address] Chloride [Moles/Vol] 108 mmol/L Normal 98-108 [facility] Comment on above: Performed By: #### L 500.2500, L100.0100, L501.4021, L503.7505 #### [facility] [address] [place], [address] CO2 [Moles/Vol] 25.6 mmol/L Normal 21.0-32.0 [facility] Comment on above: Performed By: #### L 500.2500, L100.0100, L501.4021, L503.7505 #### [facility] [address] [place], [address] Creatinine [Mass/Vol] 0.80 mg/dL Normal 0.70-1.20 [facility] Comment on above: Performed By: #### L 500.2500, L100.0100, L501.4021, L503.7505 #### [facility] [address] [place], [address] ECRCL 60.38 ml/min Normal 50-250 [facility] Comment on above: Performed By: #### L 500.2500, L100.0100, L501.4021, L503.7505 #### [facility] [address] [place], [address] GAP 10 Normal 5-15 [facility] Comment on above: Performed By: #### L 500.2500, L100.0100, L501.4021, L503.7505 #### [facility] [address] [place], [address] GFR/1.73 sq M.predicted among non-blacks MDRD (S/P/Bld) [Vol rate/Area] 83 mL/min/{1.73_m2} Normal >60 [facility] Comment on above: Result Comment: mL/m in/1.73m2 CKD-EPI Creatinine Equation (2020) Performed By: #### L 500.2500, L100.0100, L501.4021, L503.7505 #### [facility] [address] [place], [address] Glucose [Mass/Vol] 100 mg/dL High 70-99 [facility] Comment on above: Performed By: #### L 500.2500, L100.0100, L501.4021, L503.7505 #### [facility] [address] [place], [address] Potassium [Moles/Vol] 2.9 mmol/L Low 3.3-5.1 [facility] Comment on above: Performed By: #### L 500.2500, L100.0100, L501.4021, L503.7505 #### [facility] [address] [place], [address] Sodium [Moles/Vol] 143 mmol/L Normal 133-145 [facility] Comment on above: Performed By: #### L 500.2500, L100.0100, L501.4021, L503.7505 #### [facility] [address] [place], [address] Urea nitrogen [Mass/Vol] 13 mg/dL Normal 4-19 [facility] Comment on above: Performed By: #### L 500.2500, L100.0100, L501.4021, L503.7505 #### [facility] [address] [place], [address] CBC W/Diff, Automatedon 07-03 Absolute Lymph 1.20 X10 3/uL Normal 0.83-4.51 [facility] Comment on above: Performed By: #### L 500.2500, L100.0100, L501.4021, L503.7505 #### [facility] [address] [place], [address] Absolute Neut 5.9 X10 3/uL Normal 2.0-7.7 [facility] Comment on above: Performed By: #### L 500.2500, L100.0100, L501.4021, L503.7505 #### [facility] [address] [place], [address] Basophils/100 WBC (Bld) 0.2 % Normal 0-1 [facility] Comment on above: Performed By: #### L 500.2500, L100.0100, L501.4021, L503.7505 #### [facility] [address] [place], [address] Eosinophils/100 WBC (Bld) 4.6 % Normal 0-5 [facility] Comment on above: Performed By: #### L 500.2500, L100.0100, L501.4021, L503.7505 #### [facility] [address] [place], [address] Erythrocyte distribution width (RBC) [Ratio] 13.4 % Normal 11.6-14.6 [facility] Comment on above: Performed By: #### L 500.2500, L100.0100, L501.4021, L503.7505 #### [facility] [address] [place], [address] Hematocrit (Bld) [Volume fraction] 27.5 % Low 37-47 [facility] Comment on above: Performed By: #### L 500.2500, L100.0100, L501.4021, L503.7505 #### [facility] [address] [place], [address] Hemoglobin (Bld) [Mass/Vol] 8.8 g/dL Low 12.0-15.0 [facility] Comment on above: Performed By: #### L 500.2500, L100.0100, L501.4021, L503.7505 #### [facility] [address] [place], [address] IG% 0.600 Normal 0.0-0.9 [facility] Comment on above: Result Comment: IG% - Immature Granulocytes (promyelocytes, myelocytes and metamyelocytes) > 1% indicates that a LEFT SHIFT is Present. Performed By: #### L 500.2500, L100.0100, L501.4021, L503.7505 #### [facility] [address] [place], [address] Lymphocytes/100 WBC (Bld) 14.6 % Low 19-41 [facility] Comment on above: Performed By: #### L 500.2500, L100.0100, L501.4021, L503.7505 #### [facility] [address] [place], [address] MCH (RBC) [Entitic mass] 29.8 pg Normal 27.0-32.0 [facility] Comment on above: Performed By: #### L 500.2500, L100.0100, L501.4021, L503.7505 #### [facility] [address] [place], [address] MCHC (RBC) [Mass/Vol] 32.0 g/dL Normal 32-36 [facility] Comment on above: Performed By: #### L 500.2500, L100.0100, L501.4021, L503.7505 #### [facility] [address] [place], [address] MCV (RBC) [Entitic vol] 93.2 fL Normal 81-99 [facility] Comment on above: Performed By: #### L 500.2500, L100.0100, L501.4021, L503.7505 #### [facility] [address] [place], [address] Monocytes/100 WBC (Bld) 8.6 % Normal 0-10 [facility] Comment on above: Performed By: #### L 500.2500, L100.0100, L501.4021, L503.7505 #### [facility] [address] [place], [address] Neutrophils/100 WBC (Bld) 71.4 % High 47-70 [facility] Comment on above: Performed By: #### L 500.2500, L100.0100, L501.4021, L503.7505 #### [facility] [address] [place], [address] Nucleated RBC (Bld) [#/Vol] 0 10*3/uL Normal 0-5 [facility] Comment on above: Performed By: #### L 500.2500, L100.0100, L501.4021, L503.7505 #### [facility] [address] [place], [address] Platelet mean volume (Bld) [Entitic vol] 10.8 fL Normal 6.2-12.0 [facility] Comment on above: Performed By: #### L 500.2500, L100.0100, L501.4021, L503.7505 #### [facility] [address] [place], [address] Platelets (Bld) [#/Vol] 163 10*3/uL Normal 150-450 [facility] Comment on above: Performed By: #### L 500.2500, L100.0100, L501.4021, L503.7505 #### [facility] [address] [place], [address] RBC (Bld) [#/Vol] 2.95 10*6/uL Low 4.2-5.4 [facility] Comment on above: Performed By: #### L 500.2500, L100.0100, L501.4021, L503.7505 #### [facility] [address] [place], [address] RDW SD 46.0 fl High 35.1-43.9 [facility] Comment on above: Performed By: #### L 500.2500, L100.0100, L501.4021, L503.7505 #### [facility] [address] [place], [address] WBC (Bld) [#/Vol] 8.2 10*3/uL Normal 4.4-11.0 [facility] Comment on above: Performed By: #### L 500.2500, L100.0100, L501.4021, L503.7505 #### [facility] [address] [place], [address] Chest PA and Lateralon 07-29 Chest PA and Lateral [facility] Imaging Services [address] [place] [address] Chest PA and Lateral MR#: [id number] Acct: [id number] Name: LEYDA LOPEZ Rep #: [id number] : 1960 F 63 From: Andrea Sterling DO PCP: DALI RICE, CARPET BINDER-C Status: ADM IN Study: Chest PA and Lateral Date of Exam: 07/29/24 Exam# [id number] Ordering Dr: Lux Quinonez MD PROCEDURE: CHEST PA AND LATERAL 07/29/2024 REASON FOR EXAM: FEVER TECHNIQUE: Frontal and lateral views of the chest. COMPARISON: CT of the chest dated 05/17/2023 FINDINGS: Hardware: Surgical anchors project over the right humeral head. Heart: Borderline cardiomegaly Mediastinum: The mediastinal contour is unremarkable. Lungs: Bibasilar atelectasis/effusion. Infection can not be excluded. No pneumothorax. Bones: The bones are unremarkable. RAD/Chest PA and Lateral IMPRESSION: Bibasilar atelectasis/effusion. Infection can not be excluded. Reading Location: [id number] CC: CARPET BINDER-C DALI RICE; Dr. Lux Quinonez MD Regulatory Intern: Signed Normal [facility] Potassiumon 07-29-2024 Potassium [Moles/Vol] 3.3 mmol/L Normal 3.3-5.1 [facility] Comment on above: Performed By: #### L 500.2500, L100.0100, L501.4021, L503.7505 #### [facility] [address] [place], [address] Basic Metabolic Profile (BMP )on 07-28-2024 BUN/CRE 23.8 RATIO High 10-20 [facility] Comment on above: Performed By: #### L 500.2500, L100.0100, L501.4021, L503.7505 #### [facility] [address] [place], [address] Calcium [Mass/Vol] 8.9 mg/dL Normal 7.6-11.0 [facility] Comment on above: Performed By: #### L 500.2500, L100.0100, L501.4021, L503.7505 #### [facility] [address] [place], [address] Chloride [Moles/Vol] 108 mmol/L Normal 98-108 [facility] Comment on above: Performed By: #### L 500.2500, L100.0100, L501.4021, L503.7505 #### [facility] [address] [place], [address] CO2 [Moles/Vol] 24.5 mmol/L Normal 21.0-32.0 [facility] Comment on above: Performed By: #### L 500.2500, L100.0100, L501.4021, L503.7505 #### [facility] [address] [place], [address] Creatinine [Mass/Vol] 1.03 mg/dL Normal 0.70-1.20 [facility] Comment on above: Performed By: #### L 500.2500, L100.0100, L501.4021, L503.7505 #### [facility] [address] [place], [address] ECRCL 46.90 ml/min Low 50-250 [facility] Comment on above: Performed By: #### L 500.2500, L100.0100, L501.4021, L503.7505 #### [facility] [address] [place], [address] GAP 14 Normal 5-15 [facility] Comment on above: Performed By: #### L 500.2500, L100.0100, L501.4021, L503.7505 #### [facility] [address] [place], [address] GFR/1.73 sq M.predicted among non-blacks MDRD (S/P/Bld) [Vol rate/Area] 61 mL/min/{1.73_m2} Normal >60 [facility] Comment on above: Result Comment: mL/m in/1.73m2 CKD-EPI Creatinine Equation (2020) Performed By: #### L 500.2500, L100.0100, L501.4021, L503.7505 #### [facility] [address] [place], [address] Glucose [Mass/Vol] 92 mg/dL Normal 70-99 [facility] Comment on above: Performed By: #### L 500.2500, L100.0100, L501.4021, L503.7505 #### [facility] [address] [place], [address] Potassium [Moles/Vol] 4.2 mmol/L Normal 3.3-5.1 [facility] Comment on above: Performed By: #### L 500.2500, L100.0100, L501.4021, L503.7505 #### [facility] [address] [place], [address] Sodium [Moles/Vol] 147 mmol/L High 133-145 [facility] Comment on above: Performed By: #### L 500.2500, L100.0100, L501.4021, L503.7505 #### [facility] [address] [place], [address] Urea nitrogen [Mass/Vol] 25 mg/dL High 4-19 [facility] Comment on above: Performed By: #### L 500.2500, L100.0100, L501.4021, L503.7505 #### [facility] [address] [place], [address] CBC W/Diff, Automatedon 05-2 PLT EST ADEQUATE Normal ADEQ [facility] Comment on above: Performed By: #### L 500.2500, L100.0100, L501.4021, L503.7505 #### [facility] [address] [place], [address] RED CELL MORPH NORM C+C Normal NORM C C [facility] Comment on above: Performed By: #### L 500.2500, L100.0100, L501.4021, L503.7505 #### [facility] [address] [place], [address] SMEAR COMMENT SCANNED Normal [facility] Comment on above: Performed By: #### L 500.2500, L100.0100, L501.4021, L503.7505 #### [facility] [address] [place], [address] Small Bowel Series Onlyon Small Bowel Series Only [facility] Imaging Services [address] [place] [address] Small Bowel Series Only MR#: [id number] Acct: [id number] Name: LEYDA LOPEZ Rep #: [id number] : 1960 F 63 From: Bebeto mulligan MD PCP: DALI RICE CARPET BINDER-C Status: ADM IN Study: Small Bowel Series Only Date of Exam: 07/28/24 Exam# [id number] Ordering Dr: Kalyan Bass PROCEDURE: SMALL BOWEL SERIES ONLY 07/28/2024 REASON FOR EXAM: SBO TECHNIQUE: Gastrografin was introduced through the nasogastric tube. Small bowel follow-through examination was obtained. COMPARISON: Prior radiograph dated July 26, 2024. FINDINGS: On the flask maker view, a large amount of fecal material is seen in the colon. The small bowel gas is unremarkable. Small bowel follow-through examination was performed. There is evidence of a small diverticulum in the 3rd portion of the duodenum. Small bowel measures upper limits of normal. Contrast is seen within the entire colon at 3 hours. RAD/Small Bowel Series Only IMPRESSION: No evidence of small-bowel obstruction at this time. Large amount of fecal material is seen in the colon. Reading Location: [facility] CC: SHMUEL RICE; Dr. Kalyan Bass MD Regulatory Intern: Signed Normal [facility] Basic Metabolic Profile (BMP )on 07-27-2024 BUN/CRE 26.0 RATIO High 10-20 [facility] Comment on above: Performed By: #### L 500.2500, L100.0100, L501.4021, L503.7505 #### [facility] [address] [place], [address] Calcium [Mass/Vol] 8.2 mg/dL Normal 7.6-11.0 [facility] Comment on above: Performed By: #### L 500.2500, L100.0100, L501.4021, L503.7505 #### [facility] [address] [place], [address] Chloride [Moles/Vol] 106 mmol/L Normal 98-108 [facility] Comment on above: Performed By: #### L 500.2500, L100.0100, L501.4021, L503.7505 #### [facility] [address] [place], [address] CO2 [Moles/Vol] 26.1 mmol/L Normal 21.0-32.0 [facility] Comment on above: Performed By: #### L 500.2500, L100.0100, L501.4021, L503.7505 #### [facility] [address] [place], [address] Creatinine [Mass/Vol] 1.36 mg/dL High 0.70-1.20 [facility] Comment on above: Performed By: #### L 500.2500, L100.0100, L501.4021, L503.7505 #### [facility] [address] [place], [address] ECRCL 35.52 ml/min Low 50-250 [facility] Comment on above: Performed By: #### L 500.2500, L100.0100, L501.4021, L503.7505 #### [facility] [address] [place], [address] GAP 11 Normal 5-15 [facility] Comment on above: Performed By: #### L 500.2500, L100.0100, L501.4021, L503.7505 #### [facility] [address] [place], [address] GFR/1.73 sq M.predicted among non-blacks MDRD (S/P/Bld) [Vol rate/Area] 44 mL/min/{1.73_m2} Low >60 [facility] Comment on above: Result Comment: mL/m in/1.73m2 CKD-EPI Creatinine Equation (2020) Performed By: #### L 500.2500, L100.0100, L501.4021, L503.7505 #### [facility] [address] [place], [address] Glucose [Mass/Vol] 111 mg/dL High 70-99 [facility] Comment on above: Performed By: #### L 500.2500, L100.0100, L501.4021, L503.7505 #### [facility] [address] [place], [address] Potassium [Moles/Vol] 4.1 mmol/L Normal 3.3-5.1 [facility] Comment on above: Performed By: #### L 500.2500, L100.0100, L501.4021, L503.7505 #### [facility] [address] [place], [address] Sodium [Moles/Vol] 143 mmol/L Normal 133-145 [facility] Comment on above: Performed By: #### L 500.2500, L100.0100, L501.4021, L503.7505 #### [facility] [address] [place], [address] Urea nitrogen [Mass/Vol] 35 mg/dL High 4-19 [facility] Comment on above: Performed By: #### L 500.2500, L100.0100, L501.4021, L503.7505 #### [facility] [address] [place], [address] CBC W/Diff, Automatedon 05- SMEAR COMMENT SCANNED Normal [facility] Comment on above: Result Comment: LEFT SHIFT: BANDS PRESENT 2+ Performed By: #### L 500.2500, L100.0100, L501.4021, L503.7505 #### [facility] [address] [facility] [place], [address] Consultation - Surgicalon Consultation - Surgical [facility] Medical Records Department [address] [facility] [place] [address] Consultation - Surgical 07/27/24 0724 MR#: [id number] Acct: [id number] Name: LEYDA LOPEZ Rep #: [id number] : 1960 63 From: Kalyan Bass MD 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 I reviewed her CT scan and it shows distention of the small bowel. They originally called the transition point of the duodenum but I believe this is a typo in the CT scan. The patient reports that she is passing flatus and feeling less distended. She still has an NG tube in place. I will order her some ice chips per her request. Continue NG suction. The output is still very dark. Plan for small bowel follow-through tomorrow. Kalyan Bass MD Pager: [facility] [address] [place] [address] [facility], [address] [place] [address] Office: HPI Consult Data Date of Consult: 07/27/24 HPI Narrative HPI Narrative: LEYDA LOPEZ, is a 63 F who presents with abdominal pain and nausea. The patient has had a bowel obstruction in the past which resolved spontaneously. She has had a hernia repair as well. She reports that this morning she is feeling better than she was yesterday. She says she is passing flatus. She has not had a bowel movement. She denies nausea but she does have an NG tube in place. [facility] Medical History (Updated 07/26/24 @ 21:11 by GARY Rojas) CHF (congestive heart failure) Anxiety Depression Kidney disease GERD (gastroesophageal reflux disease) Former smoker On home oxygen therapy Irregular heart beat Myocardial infarct Migraines Fibromyalgia NSTEMI (non-ST elevated myocardial infarction) Hypertension Rheumatoid arthritis Bipolar 1 disorder COPD (chronic obstructive pulmonary disease) COPD (chronic obstructive pulmonary disease) Home Medications ???Medication ???Instructions ???Recorded ???Last Taken ???Type albuterol sulfate 90 mcg/actuation 2 puff inhalation Q4H PRN PRN So b 07/26/14 06/06/17 History aerosol inhaler (ProAir HFA) /Or Wheezing nitroglycerin 0.4 mg sublingual 0.4 mg sublingual PRN PRN CHEST Unknown History tablet PAIN amitriptyline 100 mg tablet 150 mg PO QHS depresssion 10/10/22 04/30/24 History meloxicam 7.5 mg tablet 15 mg PO DAILY pain 10/10/2204/30 History sumatriptan succinate 50 mg tablet 50 mg PO PRN PRN migraine headac he 10/10/22 04/30/24 History ondansetron 4 mg disintegrating 4 mg PO Q8H PRN PRN Nausea #14 tab s 11/14/22 Unknown Rx tablet atorvastatin 40 mg tablet 40 mg PO QHS Cholesterol 05/11/23 04/30/24 History buspirone 5 mg tablet 10 mg PO TID Anxiety 05/11/2304/05 History dexlansoprazole 60 mg 60 mg PO DAILY GERD 05/11/23 Unkno wn History capsule,biphase delayed release escitalopram oxalate 20 mg tablet 20 mg PO DAILY depression 4 04/30/24 History hydroxyzine HCl 50 mg tablet 50 mg PO TID PRN Anxiety 05/11/23 04/30/24 History pregabalin 25 mg capsule 150 mg PO BID Nerve pain 05/11/23 04/30/24 History tizanidine 4 mg tablet 4 mg PO Q8H PRN PRN muscle spasm 0 05/11/23 04/30/24 History acetaminophen 325 mg tablet 1,000 mg (3.0769 x 325 mg) PO Q8H 05/20/23 Unknown Rx PRN PRN fever/pain 1-10 #0 tabs lisinopril 40 mg tablet 40 mg PO DAILY blood pressure 04/2704/30/24 History potassium chloride 20 mEq 20 meq PO DAILYCM diuretic use #30 06/06/23 04/30/24 Rx tablet,extended release(part/cryst) tabs trazodone 50 mg tablet 50 mg PO QHS insomnia 05/01/24 Unk nown History albuterol sulfate 2.5 mg/3 mL 2.5 mg inhalation Q4H PRN PRN 07/03 07/26 Unknown History (0.083 %) solution for nebulization wheezing buspirone 10 mg tablet 10 mg PO TID mental health 5 Unknown History escitalopram oxalate 20 mg tablet 20 mg PO DAILY depression 5 Unknown History (Lexapro) fluticasone 250 mcg-salmeterol 50 1 ea inhalation BID copd 07/26/24 Unknown History mcg/dose blistr powdr for inhalation furosemide 40 mg tablet 40 mg PO DAILY water pill 07/26/24 Unknown History loperamide 2 mg capsule 2 mg PO TID PRN PRN diarrhea 07/26 Unknown History Allergy/AdvReac Type Severity Reaction Status Date / Time methotrexate Allergy Other Verified 07/26/24 13:29 nadolol Allergy Unknown Verified 07/26/24 13:29 prochlorperazine Allergy PT UNABLE Verified 07/26/24 13:29 TO RESPOND-NEEDS F/U baclofen AdvReac Other Verified 07/26/24 13:29 lorazepam (From Ativan) AdvReac Nausea Verified 07/26/24 13:29 propranolol AdvReac Other Verified 07/26/24 13:29 Family History (Reviewed 07/26/24 (more content not included)... Normal [facility] Abdomen Single View (Portabl e)on 07-26-2024 Abdomen Single View (Portable) [facility] Imaging Services [address] [place] [address] [phone] Abdomen Single View (Portable) MR#: [id number] Acct: [id number] Name: LEYDA LOPEZ Rep #: [id number] : 1960 F 63 From: Theresa Espinoza nd, MD PCP: DALI RICE, CARPET BINDER-C Status: ADM IN Study: Abdomen Single View (Portable) Date of Exam: 0 07/26/24 Exam# [id number] Ordering Dr: Amy Bond PROCEDURE: ABDOMEN SINGLE VIEW (PORTABLE) 07/26/2024 REASON FOR EXAM: NG INSERTION TECHNIQUE: Single view abdomen. COMPARISON: Same day CT abdomen pelvis. FINDINGS: Support devices: Interval gastric tube placement with side hole and tip coursing below the level of the diaphragm. Visualization of the gastric tube is limited on lateral radiograph. Bowel gas: Persistent dilation of the visualized small bowel loops within the upper abdomen. Bones: There are degenerative changes of the spine. Other: Persistent bibasilar consolidations. RAD/Abdomen Single View (Portable) IMPRESSION: Interval gastric tube placement as described. Reading Location: [id number] CC: CARPET BINDER-C DALI RICE; GARY Rojas Regulatory Intern: Signed Normal [facility] Abdomen/Pelvis W IV Cont ONL Yon 07-26-2024 Abdomen/Pelvis W IV Cont ONLY [facility] Imaging Services [address] [place] [address] Abdomen/Pelvis W IV Cont ONLY MR#: [id number] Acct: [id number] Name: LEYDA LOPEZ Rep #: [id number] : 1960 F 63 From: Theresa Espinoza nd, MD PCP: DALI RICE, CARPET BINDER-C Status: REG ER Study: Abdomen/Pelvis W IV Cont ONLY Date of Exam: Exam# [id number] Ordering Dr: Amy Bond PROCEDURE: ABDOMEN/PELVIS W IV CONT ONLY N/A REASON FOR EXAM: ABDOMINAL PAIN TECHNIQUE: Abdomen and pelvis CT with intravenous contrast. Coronal and Sagittal reconstruction series were provided. PATIENT PREPARATION: Per protocol ORAL CONTRAST TYPE: None. CONTRAST: Isovue 370 VOLUME: 100 mL One or more dose reduction techniques were used (e.g., Automated exposure control, adjustment of the mA and/or kV according to patient size, use of iterative reconstruction technique. RADIATION DOSE SUMMARY: CTDlvol: 25 mGy DLP: 710 mGycm COMPARISON: CT chest 05/17/2023. FINDINGS: Lung bases: Unchanged bibasilar consolidations. The heart is normal size. Liver: The liver is normal in size with diffuse hepatic steatosis. The major portal veins are patent. No biliary ductal dilation. Gallbladder: No radiopaque stones within the gallbladder. Spleen: Unremarkable. Pancreas: Atrophic. Adrenals: No adrenal mass. Kidneys: Mild symmetric renal cortical scarring. No hydronephrosis or nephrolithiasis. Bladder: Distended and unremarkable. Reproductive Organs: Prior hysterectomy. Adnexal regions are unremarkable. Bowel: Diffuse dilation of the small bowel loops measuring up to 3.8 cm, with the transition point within the distal duodenum within the left upper quadrant (series 2, image 47 and coronal image 57). No ascites or pneumoperitoneum. Normal appendix. Lymph nodes: Prominent retroperitoneal lymph nodes, likely reactive. No suspicious lymphadenopathy. Vasculature: Moderate mixed plaque of the aortoiliac vessels. Bones: Thoracolumbar spondylosis with mild multilevel chronic vertebral body height loss of the lower thoracic spine. Chronic fracture deformity of the left inferior pubic ramus. CT/Abdomen/Pelvis W IV Cont ONLY IMPRESSION: 1. Diffuse dilation of the small bowel, with the transition point within the distal duodenum within the left upper quadrant. No pneumoperitoneum. 2. Diffuse hepatic steatosis. 3. Stable bibasilar consolidations. Reading Location: [id number] CC: SHMUEL RICE; GARY Rojas Regulatory Intern: Signed Normal [facility] Absolute lymphocyte countOrd ered By: Amy Bond on 07-26-2024 Lymphocytes Auto (Unsp spec) [#/Vol] 1.12 10*3/uL 0.83-4.51 [facility] Absolute neutrophil countOrd ered By: Amy Bond on 07-26-2024 Neutrophils (Bld) [#/Vol] 5.7 10*3/uL 2.0-7.7 [facility] Anion gap in Serum or Plasma Ordered By: Amy Bond on 07-26-2024 Anion gap [Moles/Vol] 15 mmol/L 5-15 [facility] Automated lymphocyte count a s percentage of total leukocytesOrdered By: Amy Bond on 07-26-2024 Lymphocytes/100 WBC Auto (Unsp spec) 14.4 % Low 19-41 [facility] BUN/creatinine ratioOrdered By: Amy Bond on 07-26-2024 Urea nitrogen/Creatinine [Mass ratio] 23.2 mg/mg High 10-20 [facility] Basophil percentageOrdered B y: Amy Bond on 07-26-2024 Basophils/100 WBC (Bld) 0.5 % 0-1 [facility] Bilirubin Test strip Ql (U)O rdered By: Amy Bond on 07-26-2024 Bilirubin Ql (U) 1 mg/dL High Negative [facility] Comment on above: COLOR OF URINE MAY A FFECT DIPSTICK RESULTS. Bilirubin, totalOrdered By: Amy Bond on 07-26-2024 Bilirubin [Mass/Vol] 0.49 mg/dL 0.00-1.30 [facility] CBC W/Diff, Automatedon 07-03 PLT EST A Normal ADEQ [facility] Comment on above: Performed By: #### L 500.2500, L100.0100, L501.4021, L503.7505 #### [facility] [address] [place], [place], [id number] RED CELL MORPH NORM C+C Normal NORM C C [facility] Comment on above: Performed By: #### L 500.2500, L100.0100, L501.4021, L503.7505 #### [facility] [address] [place], [address] Carbon dioxide, total [Moles /volume] in Central venous bloodOrdered By: Amy Bond on 07-26-2024 CO2 [Moles/Vol] 29.2 mmol/L 21.0-32.0 [facility] Chloride assayOrdered By: Elza Bond on 07-26-2024 Chloride [Moles/Vol] 97 mmol/L Low 98-108 [facility] Comprehensive Metabolic Prof ilon 07-26-2024 Albumin [Mass/Vol] 4.4 g/dL Normal 3.4-4.8 [facility] Comment on above: Performed By: #### L 500.2500, L100.0100, L501.4021, L503.7505 #### [facility] [address] [place], [address] Albumin/Globulin [Mass ratio] 1.3 {ratio} Normal 0.9-2.4 [facility] Comment on above: Performed By: #### L 500.2500, L100.0100, L501.4021, L503.7505 #### [facility] [address] [place], [address] ALK PHOS 101 U/L Normal 35-104 [facility] Comment on above: Performed By: #### L 500.2500, L100.0100, L501.4021, L503.7505 #### [facility] [address] [place], [address] ALT [Catalytic activity/Vol] 12 U/L Normal <=34 [facility] Comment on above: Performed By: #### L 500.2500, L100.0100, L501.4021, L503.7505 #### [facility] [address] [place], [place], [id number] AST [Catalytic activity/Vol] 29 U/L Normal <=31 [facility] Comment on above: Performed By: #### L 500.2500, L100.0100, L501.4021, L503.7505 #### [facility] [address] [place], [address] Bilirubin [Mass/Vol] 0.49 mg/dL Normal 0.00-1.30 [facility] Comment on above: Performed By: #### L 500.2500, L100.0100, L501.4021, L503.7505 #### [facility] [address] [place], [address] BUN/CRE 23.2 RATIO High 10-20 [facility] Comment on above: Performed By: #### L 500.2500, L100.0100, L501.4021, L503.7505 #### [facility] [address] [place], [address] Calcium [Mass/Vol] 9.3 mg/dL Normal 7.6-11.0 [facility] Comment on above: Performed By: #### L 500.2500, L100.0100, L501.4021, L503.7505 #### [facility] [address] [place], [address] Chloride [Moles/Vol] 97 mmol/L Low 98-108 [facility] Comment on above: Performed By: #### L 500.2500, L100.0100, L501.4021, L503.7505 #### [facility] [address] [place], [address] CO2 [Moles/Vol] 29.2 mmol/L Normal 21.0-32.0 [facility] Comment on above: Performed By: #### L 500.2500, L100.0100, L501.4021, L503.7505 #### [facility] [address] [place], [address] Creatinine [Mass/Vol] 1.56 mg/dL High 0.70-1.20 [facility] Comment on above: Performed By: #### L 500.2500, L100.0100, L501.4021, [id number] #### [facility] [address] [place], [address] ECRCL 31.49 ml/min Low 50-250 [facility] Comment on above: Performed By: #### L 500.2500, L100.0100, L501.4021, L503.7505 #### [facility] [address] [place], [address] GAP 15 Normal 5-15 [facility] Comment on above: Performed By: #### L 500.2500, L100.0100, L501.4021, L503.7505 #### [facility] [address] [place], [address] GFR/1.73 sq M.predicted among non-blacks MDRD (S/P/Bld) [Vol rate/Area] 37 mL/min/{1.73_m2} Low >60 [facility] Comment on above: Result Comment: mL/m in/1.73m2 CKD-EPI Creatinine Equation (2020) Performed By: #### L 500.2500, L100.0100, L501.4021, L503.7505 #### [facility] [address] [place], [address] Globulin (S) [Mass/Vol] 3.5 g/dL Normal 2.2-4.2 [facility] Comment on above: Performed By: #### L 500.2500, L100.0100, L501.4021, L503.7505 #### [facility] [address] [place], [address] Glucose [Mass/Vol] 116 mg/dL High 70-99 [facility] Comment on above: Performed By: #### L 500.2500, L100.0100, L501.4021, L503.7505 #### [facility] [address] [place], [address] Potassium [Moles/Vol] 4.5 mmol/L Normal 3.3-5.1 [facility] Comment on above: Performed By: #### L 500.2500, L100.0100, L501.4021, L503.7505 #### [facility] [address] [place], [address] Sodium [Moles/Vol] 142 mmol/L Normal 133-145 [facility] Comment on above: Performed By: #### L 500.2500, L100.0100, L501.4021, L503.7505 #### [facility] [address] [place], [address] T PROT 7.9 g/dL Normal 5.9-8.4 [facility] Comment on above: Performed By: #### L 500.2500, L100.0100, L501.4021, L503.7505 #### [facility] [address] [place], [address] Urea nitrogen [Mass/Vol] 36 mg/dL High 4-19 [facility] Comment on above: Performed By: #### L 500.2500, L100.0100, L501.4021, L503.7505 #### [facility] [address] [place], [address] Emergency Department Summary on 07-26-2024 Emergency Department Summary [facility] Medical Records Department [address] [place] [address] Emergency Department Summary 07/26/24 MR#: [id number] Acct: [id number] Name: LEYDA LOPEZ Rep #: [id number] : 1960 63 From: Amy VEGA PCP: DALI RICE, CAR[employer]ER-C Status:ADM IN Location: MS3 VS406-5 HPI HPI - GI History of Present Illness Chief Complaint: Abd Pain Narrative Narrative: Patient presenting today due to generalized abdominal pain, nausea, and vomiting. She reports that the pain started 2 days ago and the nausea and vomiting started last night. She has a history of umbilical hernia repair. She denies history of alcohol use, ascites, or liver disease. Her last bowel movement was 2 days ago, she denies stool changes. She additionally reports dysuria and has concerns for a UTI. She denies fevers, chills, hematemesis, and hematuria. She has a PMH of COPD on chronic supplemental O2, CAD, bipolar disorder, and HTN. [facility] Medical History (Updated 07/29/24 @ 15:[address] Alisa Guaman, DO) CHF (congestive heart failure) Anxiety Depression Kidney disease GERD (gastroesophageal reflux disease) Former smoker On home oxygen therapy Irregular heart beat Myocardial infarct Migraines Fibromyalgia NSTEMI (non-ST elevated myocardial infarction) Hypertension Rheumatoid arthritis Bipolar 1 disorder COPD (chronic obstructive pulmonary disease) COPD (chronic obstructive pulmonary disease) Home Medications ???Medication ???Instructions ???Recorded ???Last Taken ???Type albuterol sulfate 90 mcg/actuation 2 puff inhalation Q4H PRN PRN So b 07/26/14 06/06/17 History aerosol inhaler (ProAir HFA) /Or Wheezing nitroglycerin 0.4 mg sublingual 0.4 mg sublingual PRN PRN CHEST Unknown History tablet PAIN amitriptyline 100 mg tablet 150 mg PO QHS depresssion 10/10/22 04/30/24 History meloxicam 7.5 mg tablet 15 mg PO DAILY pain 10/10/2204/30 History sumatriptan succinate 50 mg tablet 50 mg PO PRN PRN migraine headac he 10/10/22 04/30/24 History ondansetron 4 mg disintegrating 4 mg PO Q8H PRN PRN Nausea #14 tab s 11/14/22 Unknown Rx tablet atorvastatin 40 mg tablet 40 mg PO QHS Cholesterol 05/11/23 04/30/24 History buspirone 5 mg tablet 10 mg PO TID Anxiety 05/11/2304/05 History dexlansoprazole 60 mg 60 mg PO DAILY GERD 05/11/23 Unkno wn History capsule,biphase delayed release escitalopram oxalate 20 mg tablet 20 mg PO DAILY depression 4 04/30/24 History hydroxyzine HCl 50 mg tablet 50 mg PO TID PRN Anxiety 05/11/23 04/30/24 History pregabalin 25 mg capsule 150 mg PO BID Nerve pain 05/11/23 04/30/24 History tizanidine 4 mg tablet 4 mg PO Q8H PRN PRN muscle spasm 0 05/11/23 04/30/24 History acetaminophen 325 mg tablet 1,000 mg (3.0769 x 325 mg) PO Q8H 05/20/23 Unknown Rx PRN PRN fever/pain 1-10 #0 tabs lisinopril 40 mg tablet 40 mg PO DAILY blood pressure 04/04/2704/30/24 History potassium chloride 20 mEq 20 meq PO DAILYCM diuretic use #30 06/06/23 04/30/24 Rx tablet,extended release(part/cryst) tabs trazodone 50 mg tablet 50 mg PO QHS insomnia 05/01/24 Unk nown History albuterol sulfate 2.5 mg/3 mL 2.5 mg inhalation Q4H PRN PRN 07/03 07/26 Unknown History (0.083 %) solution for nebulization wheezing buspirone 10 mg tablet 10 mg PO TID mental health 5 Unknown History escitalopram oxalate 20 mg tablet 20 mg PO DAILY depression 5 Unknown History (Lexapro) fluticasone 250 mcg-salmeterol 50 1 ea inhalation BID copd 07/26/24 Unknown History mcg/dose blistr powdr for inhalation furosemide 40 mg tablet 40 mg PO DAILY water pill 07/26/24 Unknown History loperamide 2 mg capsule 2 mg PO TID PRN PRN diarrhea 07/26 Unknown History Allergy/AdvReac Type Severity Reaction Status Date / Time methotrexate Allergy Other Verified 07/26/24 13:29 nadolol Allergy Unknown Verified 07/26/24 13:29 prochlorperazine Allergy PT UNABLE Verified 07/26/24 13:29 TO RESPOND-NEEDS F/U baclofen AdvReac Other Verified 07/26/24 13:29 lorazepam (From Ativan) AdvReac Nausea Verified 07/26/24 13:29 propranolol AdvReac Other Verified 07/26/24 13:29 Family History Other COPD (chronic obstructive pulmonary disease) Surgical History (Updated 07/26/24 @ 20:28 by Nuris Jonas) H/O umbilical hernia repair Social History Smoking Status: Former smoker substance use type: marijuana ROS ROS ED Constitutional Constitutional ED: Denies chills or fever(s) Cardiovascular Cardiovascular: Denies chest pain Respiratory/Chest Respiratory/Chest: Denies dyspnea Gastrointestinal Gastrointestinal: Reports abdominal p (more content not included)... Normal [facility] Eosinophil percentageOrdered By: Amy Bond on 07-26-2024 Eosinophils/100 WBC (Bld) 1.5 % 0-5 [facility] Erythrocyte distribution wid th ratioOrdered By: Amy Bond on 07-26-2024 Erythrocyte distribution width (RBC) [Ratio] 14.0 % 11.6-14.6 [facility] Erythrocyte distribution wid th standard deviationOrdered By: Amy Bond on 07-26-2024 Erythrocyte distribution width (RBC) [Ratio] 46.1 fl High 35.1-43.9 [facility] Erythrocyte morphology asses smentOrdered By: Amy Bond on 07-26-2024 RBC morphology finding Nom (Bld) NORM C+C NORMAL NORM C&C [facility] Glomerular filtration rate ( GFR) estimation/1.73 sq m using serum, plasma, or whole bOrdered By: Amy Bodn on 07-26-2024 GFR/1.73 sq M.predicted among non-blacks MDRD (S/P/Bld) [Vol rate/Area] 37 mL/min/{1.73_m2} Low >60 [facility] Comment on above: mL/min/1.73m2 CKD-EP I Creatinine Equation (2020) H AND P Exam - [facility]iston 07-26-2024 H&P Exam - Hospitalist [facility] Medical Records Department [address] [place] [address] H P Exam - Hospitalist 07/26/24 1827 MR#: [id number] Acct: [id number] Name: LEYDA LOPEZ Rep #: [id number] : 1960 63 From: Trey Joe DO PCP: DALI RICE [employer]-C Status:REG ER Location: ED HPI - General General Date of Service: 07/26/24 Chief Complaint: abdominal pain HPI Narrative LEYDA LOPEZ, is a 63 F who presents with 2 days of abdominal pain. Abdomen has become more distended and more painful. Presented to the emergency room and she had a CAT scan that showed a small bowel obstruction. Dr. Bass general surgery, was contacted and recommended NG tube and that surgery would be consultation. They mentioned NG tube for the patient and she became very emotionally labile and declined NG tube. I went there later discuss with the patient and patient had another person in the room who was called and patient did agree to get NG tube placed. Patient states that she has had a remote history of a small bowel obstruction in the past. States that she has had a hernia repair surgery. [facility] Medical History CHF (congestive heart failure) Anxiety Depression Kidney disease GERD (gastroesophageal reflux disease) Former smoker On home oxygen therapy Irregular heart beat Myocardial infarct Migraines Fibromyalgia NSTEMI (non-ST elevated myocardial infarction) Hypertension Rheumatoid arthritis Bipolar 1 disorder COPD (chronic obstructive pulmonary disease) COPD (chronic obstructive pulmonary disease) Home Medications ???Medication ???Instructions ???Recorded ???Last Taken ???Type albuterol sulfate 90 mcg/actuation 2 puff inhalation Q4H PRN PRN So b 07/26/14 06/06/17 History aerosol inhaler (ProAir HFA) /Or Wheezing nitroglycerin 0.4 mg sublingual 0.4 mg sublingual PRN PRN CHEST Unknown History tablet PAIN amitriptyline 100 mg tablet 150 mg PO QHS depresssion 10/10/22 04/30/24 History meloxicam 7.5 mg tablet 15 mg PO DAILY pain 10/10/2204/30 History sumatriptan succinate 50 mg tablet 50 mg PO PRN PRN migraine headac he 10/10/22 04/30/24 History ondansetron 4 mg disintegrating 4 mg PO Q8H PRN PRN Nausea #14 tab s 11/14/22 Unknown Rx tablet atorvastatin 40 mg tablet 40 mg PO QHS Cholesterol 05/11/23 04/30/24 History buspirone 5 mg tablet 10 mg PO TID Anxiety 05/11/2304/05 History dexlansoprazole 60 mg 60 mg PO DAILY GERD 05/11/23 Unkno wn History capsule,biphase delayed release escitalopram oxalate 20 mg tablet 20 mg PO DAILY depression 4 04/30/24 History fluticasone propionate 50 2 spray intranasal DAILY allergies 05/11/23 04/30/24 History mcg/actuation nasal spray,suspension hydroxyzine HCl 50 mg tablet 50 mg PO TID PRN Anxiety 05/11/23 04/30/24 History pregabalin 25 mg capsule 150 mg PO BID Nerve pain 05/11/23 04/30/24 History tizanidine 4 mg tablet 4 mg PO Q8H PRN PRN muscle spasm 0 05/11/23 04/30/24 History acetaminophen 325 mg tablet 1,000 mg (3.0769 x 325 mg) PO Q8H 05/20/23 Unknown Rx PRN PRN fever/pain 1-10 #0 tabs lisinopril 40 mg tablet 40 mg PO DAILY blood pressure 04/0 04/2704/30/24 History furosemide 40 mg tablet 40 mg PO BIDCM water pill #120 tab s 06/06/23 Unknown Rx guaifenesin 1,200 mg tablet, 1,200 mg PO BID mucus #20 tabs Unknown Rx extended release 12 hr (Mucus Relief ER) potassium chloride 20 mEq 20 meq PO DAILYCM diuretic use #30 06/06/23 04/30/24 Rx tablet,extended release(part/cryst) tabs trazodone 50 mg tablet 50 mg PO QHS insomnia 05/01/24 Unk nown History azithromycin 500 mg tablet 500 mg PO DAILY 2 days #2 tabs 04/28 Unknown Rx prednisone 20 mg tablet 40 mg (2 x 20 mg) PO DAILY 2 days 05/05/24 Unknown Rx #4 tabs Allergy/AdvReac Type Severity Reaction Status Date / Time methotrexate Allergy Other Verified 07/26/24 13:29 nadolol Allergy Unknown Verified 07/26/24 13:29 prochlorperazine Allergy PT UNABLE Verified 07/26/24 13:29 TO RESPOND-NEEDS F/U baclofen AdvReac Other Verified 07/26/24 13:29 lorazepam (From Ativan) AdvReac Nausea Verified 07/26/24 13:29 propranolol AdvReac Other Verified 07/26/24 13:29 Family History Other COPD (chronic obstructive pulmonary disease) Social History Smoking Status: Former smoker substance use type: marijuana ROS ROS Narrative Chills. All review of systems were negative except as mentioned above in the history of present illness and the other review of systems. Vital Signs Vital Signs Vital Signs: 07/26/24 13:28 07/26/24 15:28 Temperature 36.1 C L Rose (more content not included)... Normal [facility] Hematocrit Auto (Bld) [Volum e fraction]Ordered By: Amy Bond on 07-26-2024 Hematocrit (Bld) [Volume fraction] 35.1 % Low 37-47 [facility] Hemoglobin measurementOrdere d By: Amy Bond on 07-26-2024 Hemoglobin (Bld) [Mass/Vol] 11.5 g/dL Low 12.0-15.0 [facility] Immature granulocytes/100 WB C Auto (Bld)Ordered By: Amy Bond on 07-26-2024 Immature granulocytes/100 WBC (Bld) 0.500 % 0.0-0.9 [facility] Comment on above: IG% - Immature Granu locytes (promyelocytes, myelocytes and metamyelocytes) > 1% indicates that a LEFT SHIFT is Present. Ketones Test strip Ql (U)Ord ered By: Amy Bond on 07-26-2024 Ketones Ql (U) Negative Negative [facility] - Chemistry and C hemistry - challengeOrdered By: Amy Bond on 07-26-2024 AST [Catalytic activity/Vol] 29 U/L <32 [facility] Lipaseon 07-26-2024 Lipase [Catalytic activity/Vol] 12 U/L Low 13-75 [facility] Comment on above: Result Comment: Stephanie guzman note: LIPASE revised reference range effective 22. New Lipase methodology. Expected to produce lower values than the previous assay method. NEW Reference Range: 13 - 75 U/L Performed By: #### L 500.2500, L100.0100, L501.4021, L503.7505 #### [facility] [address] [place], [address] Lipase measurementOrdered By : Amy Bond on 07-26-2024 Lipase [Catalytic activity/Vol] 12 U/L Low 13-75 [facility] Comment on above: Please note:LIPASE r evised reference range effective 22. New Lipase methodology. Expected to produce lower values than the previous assay method. NEW Reference Range: 13 - 75 U/L MCV (mean corpuscular volume ) determinationOrdered By: Amy Bond on 07-26-2024 MCV (RBC) [Entitic vol] 90.5 fL 81-99 [facility] Mean corpuscular hemoglobin (MCH) determinationOrdered By: Amy Bond on 07-26-2024 MCH (RBC) [Entitic mass] 29.6 pg 27.0-32.0 [facility] Mean corpuscular hemoglobin concentration (MCHC) determinationOrdered By: Amy Bond on 07-26-2024 MCHC (RBC) [Mass/Vol] 32.8 g/dL 32-36 [facility] Mean platelet volume determi nationOrdered By: Amy Bond on 07-26-2024 Platelet mean volume (Bld) [Entitic vol] 10.5 fL 6.2-12.0 [facility] Microscopic analysis of urin e for red blood cells (RBC)Ordered By: Amy Bond on 07-26-2024 Microscopic analysis of urine for red blood cells (RBC) 0 SEEN /hpf 0-5 [facility] Monocyte percentageOrdered B y: Amy Bond on 07-26-2024 Monocytes/100 WBC (Bld) 10.3 % High 0-10 [facility] Mucus LM Ql (Urine sed)Order ed By: Amy Bond on 07-26-2024 Mucus Ql (Urine sed) 0 SEEN /hpf [facility] Neutrophil percentageOrdered By: Amy Bond on 07-26-2024 Neutrophils/100 WBC (Bld) 72.8 % High 47-70 [facility] Nitrite Test strip Ql (U)Ord ered By: Amy Bond on 07-26-2024 Nitrite Ql (U) Negative Negative [facility] Nucleated red blood cell per centageOrdered By: Amy Bond on 07-26-2024 Nucleated RBC/100 WBC (Bld) [Ratio] 0 % 0-5 [facility] Platelet countOrdered By: Elza Bond on 07-26-2024 Platelets (Bld) [#/Vol] 258 10*3/uL 150-450 [facility] Platelet estimateOrdered By: Amy Bond on 07-26-2024 Platelets LM Ql (Bld) A ADEQ [facility] Potassium measurement (mass/ volume)Ordered By: Amy Bond on 07-26-2024 Potassium (Unsp spec) [Mass/Vol] 4.5 mmol/L 3.3-5.1 [facility] Protein Test strip Ql (U)Ord ered By: Amy Bond on 07-26-2024 Protein Ql (U) 30 mg/dl High Negative [facility] RBC Auto (Bld) [#/Vol]Ordere d By: Amy Bond on 07-26-2024 RBC (Bld) [#/Vol] 3.88 10*6/uL Low 4.2-5.4 [facility] Serum creatinine measurement (mass/volume)Ordered By: Amy Bond on 07-26-2024 Creatinine [Mass/Vol] 1.56 mg/dL High 0.70-1.20 [facility] Serum globulin measurementOr dered By: Amy Bond on 07-26-2024 Globulin (S) [Mass/Vol] 3.5 g/dL 2.2-4.2 [facility] Serum glucose measurement (m ass/volume)Ordered By: Amy Bond on 07-26-2024 Glucose [Mass/Vol] 116 mg/dL High 70-99 [facility] Serum or plasma alanine reyes otransferase (ALT) measurementOrdered By: Amy Bond on 07-26-2024 ALT [Catalytic activity/Vol] 12 U/L <35 [facility] Serum or plasma albumin melo urement (mass/volume)Ordered By: Amy Bond on 07-26-2024 Albumin [Mass/Vol] 4.4 g/dL 3.4-4.8 [facility] Serum or plasma albumin/glob ulin mass ratioOrdered By: Amy Bond on 07-26-2024 Albumin/Globulin [Mass ratio] 1.3 {ratio} 0.9-2.4 [facility] Serum or plasma alkaline raymond sphatase measurementOrdered By: Amy Bond on 07-26-2024 ALP [Catalytic activity/Vol] 101 U/L 35-104 [facility] Serum or plasma calcium melo urement (mass/volume)Ordered By: Amy Bond on 07-26-2024 Calcium [Mass/Vol] 9.3 mg/dL 7.6-11.0 [facility] Serum or plasma urea nitroge n measurement (mass/volume)Ordered By: Amy Bond on 07-26-2024 Urea nitrogen [Mass/Vol] 36 mg/dL High 4-19 [facility] Sodium levelOrdered By: Prabhakar Bond on 07-26-2024 Sodium [Moles/Vol] 142 mmol/L 133-145 [facility] Squamous epithelial cells de tection in urine sediment by light microscopyOrdered By: Amy Bond on 07-26-2024 Epithelial cells.squamous LM Ql (Urine sed) 0-5 SEEN /hpf 5-10 [facility] Total proteinOrdered By: Bola Bond on 07-26-2024 Protein [Mass/Vol] 7.9 g/dL 5.9-8.4 [facility] Urinalysis, Completeon 07-26 WBC 0-5 SEEN Normal 0-5 [facility] Comment on above: Order Comment: CLEAN CATCH Performed By: #### L 500.2500, L100.0100, L501.4021, L503.7505 #### [facility] [address] [place], [place], [id number] BACTERIA 2+ /hpf Normal None Seen [facility] Comment on above: Order Comment: CLEAN CATCH Performed By: #### L 500.2500, L100.0100, L501.4021, L503.7505 #### [facility] [address] [place], [address] EPI,SQUAMOUS 0-5 SEEN Normal 5-10 [facility] Comment on above: Order Comment: CLEAN CATCH Performed By: #### L 500.2500, L100.0100, L501.4021, L503.7505 #### [facility] [address] [place], [address] Mucus Ql (Urine sed) 0 SEEN Normal [facility] Comment on above: Order Comment: CLEAN CATCH Performed By: #### L 500.2500, L100.0100, L501.4021, L503.7505 #### [facility] [address] [place], [address] RBC 0 SEEN Normal 0-5 [facility] Comment on above: Order Comment: CLEAN CATCH Performed By: #### L 500.2500, L100.0100, L501.4021, L503.7505 #### [facility] [address] [place], [address] Urine clarityOrdered By: Bola Bond on 07-26-2024 Clarity (U) Clear Clear [facility] Urine color determinationOrd ered By: Amy Bond on 07-26-2024 Color (U) Yellow Yellow [facility] Urine glucose detectionOrder ed By: Amy Bond on 07-26-2024 Glucose Ql (U) Normal mg/dl Normal [facility] Urine leukocyte esterase det ection by dipstickOrdered By: Amy Bond on 07-26-2024 Leukocyte esterase Test strip Ql (U) Negative Negative [facility] Urine pHOrdered By: Asim Bond on 07-26-2024 pH (U) 5.0 [pH] 5.0 - 8.0 [facility] Urine sediment bacteria coun t by microscopy (number/high power field)Ordered By: Amy Bond on 07-26-2024 Bacteria LM.HPF (Urine sed) [#/Area] 2 /[HPF] None Seen [facility] Urine specific gravity measu rementOrdered By: Amy Bond on 07-26-2024 Specific gravity (U) [Rel density] 1.015 1.002-1.03 0 [facility] Urine urobilinogen measureme ntOrdered By: Amy Bond on 07-26-2024 Urobilinogen Ql (U) Normal mg/dl Normal [facility] White blood cell (WBC) count Ordered By: Amy Bond on 07-26-2024 WBC (Bld) [#/Vol] 7.8 10*3/uL 4.4-11.0 [facility] White blood cell countOrdere d By: Amy Bond on 07-26-2024 White blood cell count 0-5 SEEN /hpf 0-5 [facility] CNPNon 07-24-2024 CNPN Telephone (INTMWS) LEYDA LOPEZ ([id number]) 1960 F Date Time Provider Department 07/24/24 VELVET PALACIO INTWS During your visit today, we recorded the following information about you: Hilda Ibrahim, RN 07/24/2024 12:10 PM Signed Brionna Duenas psychologist with [employer] calling to request information to see if pt has had any testing or any upcoming testing for concerns regarding her cognitive thinking. Brionna states she faxed over a letter with a request for information to Dr. Palacio's office back on 06/08. No notes found in [employer] or anything under scanned documents. Asked that Brionna refax the information to me at [phone]. Did call the pt who confirms okay to speak with [facility] and especially Gwen Duenas. Pt states she is seeing Gwen this afternoon. Attempted to contact Gwen back to share information with her but no answer so left VM to return the call. Cesia Steele, RADHA 07/28/2024 4:28 PM Addendum Faxed last [address] scan of head, per [place]ack[place] per request Attn: Radha SteeleRADHA July 28, 2024 3:34 PM Allergies As of Date: 07/24/2024 Noted Allergy Reaction AMLODIPINE 06/13/2023 14 - Other: See Comments Comments: shaky and jittery ATIVAN (LORAZEPAM) 08/24/2014 1 - Mental Status Change 11 - Vomiting Comments: mood swings BACLOFEN 06/04/2014 1 - Mental Status Change Comments: angry,mood effect METHOTREXATE 12/20/2011 11 - Vomiting Comments: abdomen pain,vomiting, sbo NADOLOL 02/05/2013 5 - Intolerance Comments: body burning,tingly NEXIUM (ESOMEPRAZOLE MAGNESIUM) 07/15/2015 14 - Other: See Comments Comments: reflux-no relief PENICILLIN G 09/29/2012 8 - GI Upset Comments: patient reports these symptoms after medication was ordered PROPRANOLOL 01/30/2013 5 - Intolerance Comments: fatigue,sleepy Date Reviewed: 06/29/2024 Reviewed by: Michelle Beckham MA - Fully Assessed Reason for Visit: Request for information [Other] Cmt: from [facility] psychologist Prescriptions as of 07/28/2024 - SUMAtriptan (IMITREX) 50 mg tablet Take 1 tablet by mouth as needed for migraine headache (see administration instructions). START AT ONSET OF HEADACHE. MAY REPEAT DOSE AFTER 2 HOURS. - Nebulizer Accessories kit 1 each every 4 hours as needed. Patient in need of mask and medication chamber for nebulizer - pregabalin (LYRICA) 150 mg capsule Take 1 capsule by mouth two times a day for 90 days. - hydrOXYzine HCl (ATARAX) 50 mg tablet Take 1 tablet by mouth every 8 hours as needed for anxiety. - ipratropium (ATROVENT) 0.02 % nebulizer solution Use 2.5 mL via nebulizer four times a day as needed for wheezing/shortness of breath. Use over 5-15minutes. Dx:J45.40 - Nebulizer Accessories kit 1 each once daily. - albuterol (PROVENTIL) 2.5 mg /3 mL (0.083 %) nebulizer solution Use 3 mL via nebulizer every 4 hours as needed for wheezing/shortness of breath. - Nebulizer and Compressor For Neb 1 each every 4 hours as needed. - busPIRone (BUSPAR) 10 mg tablet Take 1 tablet by mouth three times a day. - loperamide (IMODIUM) 2 mg cap(s) Take 1 capsule by mouth three times a day as needed. - meloxicam (MOBIC) 15 mg tablet Take 1 tablet by mouth once daily. - traZODone (DESYREL) 50 mg tablet Take 1 tablet by mouth daily at bedtime. - Blood Pressure Monitor 1 Each as needed. - OXYGEN, HOME THERAPY, 2 L/min by Nasal Cannula route as directed. At night AND 5 L/min when mobile - predniSONE (DELTASONE) 20 mg tablet Please take the pill for 7 days followed by taking half the pill for another 7 days and stop. - tiZANidine (ZANAFLEX) 4 mg tablet Take 1 tablet by mouth every 8 hours as needed. - furosemide (LASIX) 40 mg tablet Take 1 tablet by mouth once daily. - lisinopril (ZESTRIL) 40 mg tablet Take 1 tablet by mouth once daily. - escitalopram oxalate (LEXAPRO) 20 mg tablet Take 1 tablet by mouth once daily. - atorvastatin (LIPITOR) 40 mg tablet TAKE ONE TABLET BY MOUTH DAILY AT 9PM AT BEDTIME - amitriptyline 150 mg tablet Take 1 tablet by mouth daily at bedtime. - ondansetron orally disintegrating (ZOFRAN ODT) 4 mg disintegrating tablet Take 1 tablet by mouth every 8 hours as needed. - fluticasone-salmeterol (ADVAIR, WIXELA) 250-50 mcg/dose inhaler INHALE 1 PUFF BY MOUTH DIRECTED TWICE DAILY - potassium chloride ER (KLOR-CON) 20 mEq tablet Take 1 tablet by mouth once daily. - nitroglycerin sublingual (NITROQUICK) 0.4 mg SL tablet Dissolve 0.4 mg under the tongue every 5 minutes as needed for chest pain. - acetaminophen 325 mg cap Take by mouth. - Dexlansoprazole (DEXILANT) 60 mg CpDM TAKE ONE CAPSULE BY MOUTH DAILY AT 9AM - hyoscyamine sublingual (LEVSIN SL) 0.125 mg Dissolve 1 tablet under the tongue three times daily as needed. - Cholecalciferol, Vitamin D3, 2,000 unit tab Take 2 tablets by mouth once daily. (more content not included)... Normal [facility] CT BRAIN WO IVCONon 07-10-[address] BRAIN WO IVCON * * *Final Report* * * DATE OF EXAM: Jul 09 2024 2:27PM [facility] 0504 - CT BRAIN WO IVCON / PROCEDURE REASON: Memory change * * * * Physician Interpretation * * * * EXAMINATION: CT BRAIN WO IVCON CLINICAL HISTORY: Memory change TECHNIQUE: Serial axial images without IV contrast were obtained from the vertex to the foramen magnum. MQ: CTBWO_3 CT Radiation dose: Integrated Dose-Length Product (DLP) for this visit = 719 mGy*cm CT Dose Reduction Employed: Automated exposure control(AEC) and iterative recon COMPARISON: None. RESULT: Localizer images: No additional findings. Post-operative change: None. Acute change: No evidence of an acute infarct or other acute parenchymal process. Hemorrhage: No evidence of acute intracranial hemorrhage. ECASS hemorrhagic transformation score: Not Applicable Mass Lesion / Mass Effect: There is no evidence of an intracranial mass or extraaxial fluid collection. No significant mass effect. Chronic change: None apparent. Parenchyma: There is no significant volume loss. The brain parenchyma is otherwise within normal limits for age. Ventricles: The ventricles are within normal limits of size and configuration for age. Paranasal sinuses and skull base: The visualized paranasal sinuses are grossly clear. The skull base and imaged soft tissues are unremarkable. IMPRESSION: No CT evidence of acute intracranial process or mass effect. Regulatory Intern: ABBY Transcribe Date/Time: Jul 09 2024 3:34P Dictated by : EVELIN FRAUSTO MD This examination was interpreted and the report reviewed and electronically signed by: EVELIN FRAUSTO MD on Jul 09 2024 3:40PM EST [id number] Normal [facility] CT Head WO contraston 2024 IMPRESSION: No CT evidence of acute intracranial process or mass effect. Regulatory Intern: ABBY Transcribe Date/Time: Jul 09 2024 3:34P Dictated by : EVELIN FRAUSTO MD This examination was interpreted and the report reviewed and electronically signed by: EVELIN FRAUSTO MD on Jul 09 2024 3:40PM EST DIVISION OF RADIOLOGY * * *Final Report* * * DATE OF EXAM: Jul 09 2024 2:27PM [facility] 0504 - CT BRAIN WO IVCON / PROCEDURE REASON: Memory change * * * * Physician Interpretation * * * * EXAMINATION: CT BRAIN WO IVCON CLINICAL HISTORY: Memory change TECHNIQUE: Serial axial images without IV contrast were obtained from the vertex to the foramen magnum. MQ: CTBWO_3 CT Radiation dose: Integrated Dose-Length Product (DLP) for this visit = 719 mGy*cm CT Dose Reduction Employed: Automated exposure control(AEC) and iterative recon COMPARISON: None. RESULT: Localizer images: No additional findings. Post-operative change: None. Acute change: No evidence of an acute infarct or other acute parenchymal process. Hemorrhage: No evidence of acute intracranial hemorrhage. ECASS hemorrhagic transformation score: Not Applicable Mass Lesion / Mass Effect: There is no evidence of an intracranial mass or extraaxial fluid collection. No significant mass effect. Chronic change: None apparent. Parenchyma: There is no significant volume loss. The brain parenchyma is otherwise within normal limits for age. Ventricles: The ventricles are within normal limits of size and configuration for age. Paranasal sinuses and skull base: The visualized paranasal sinuses are grossly clear. The skull base and imaged soft tissues are unremarkable. DIVISION OF RADIOLOGY Provider, [facility] - 07/09/2024 * * *Final Report* * * DATE OF EXAM: Jul 09 2024 2:27PM [facility] 0504 - CT BRAIN WO IVCON / PROCEDURE REASON: Memory change * * * * Physician Interpretation * * * * EXAMINATION: CT BRAIN WO IVCON CLINICAL HISTORY: Memory change TECHNIQUE: Serial axial images without IV contrast were obtained from the vertex to the foramen magnum. MQ: CTBWO_3 CT Radiation dose: Integrated Dose-Length Product (DLP) for this visit = 719 mGy*cm CT Dose Reduction Employed: Automated exposure control(AEC) and iterative recon COMPARISON: None. RESULT: Localizer images: No additional findings. Post-operative change: None. Acute change: No evidence of an acute infarct or other acute parenchymal process. Hemorrhage: No evidence of acute intracranial hemorrhage. ECASS hemorrhagic transformation score: Not Applicable Mass Lesion / Mass Effect: There is no evidence of an intracranial mass or extraaxial fluid collection. No significant mass effect. Chronic change: None apparent. Parenchyma: There is no significant volume loss. The brain parenchyma is otherwise within normal limits for age. Ventricles: The ventricles are within normal limits of size and configuration for age. Paranasal sinuses and skull base: The visualized paranasal sinuses are grossly clear. The skull base and imaged soft tissues are unremarkable. IMPRESSION IMPRESSION: No CT evidence of acute intracranial process or mass effect. Regulatory Intern: PSCB Transcribe Date/Time: Jul 09 2024 3:34P Dictated by : EVELIN FRAUSTO MD This examination was interpreted and the report reviewed and electronically signed by: EVELIN FRAUSTO MD on Jul 09 2024 3:40PM EST [facility] Radiology Study observation (narrative) [facility] CT Head WO contrastOrdered B y: [facility] Provider on 07-09-2024 [facility] Ferritin SerPl-mCncon 2024 Ferritin [Mass/Vol] 91.3 ng/mL Normal 14.7-205.1 [facility] Comment on above: Order Comment: Perez holden Type: BLOOD SPECIMENOrdering Facility: [facility] Address: [address] [place] [address] Performed By: #### 2 284-8, 80113-1, 2276-4 ####[facility] [id number] [place] [address] [place] Folate SerPl-mCncon 07-10-19 25 Folate [Mass/Vol] ng/mL Normal >4.7 [facility] Comment on above: Order Comment: Perez holden Type: BLOOD SPECIMENOrdering Facility: [facility] Address: [address] [place] [address] Result Comment: A re sult of > 20 ng/mL is not necessarily indicative of a pathologic or treatable condition: it reflects a limitation of the test methodology. Assay reference range: 4.8 to 24.2 ng/mL. Suitable for detection of folate deficiency. Reference: Folate III (Folate III) [package insert V 1.0 Lithuanian]. [facility], [place], [place]: January 2015. Performed By: #### 2 284-8, 89835-4, 2276-4 ####[facility] [id number] [place] [id number] [place] Iron and Iron binding capaci ty panelon 07-09-2024 Iron [Mass/Vol] 65 ug/dL Normal 41-186 [facility] Comment on above: Order Comment: Speci men Type: BLOOD SPECIMENOrdering Facility: [facility] Address: [address] [place] [address] Performed By: #### 2 284-8, 07522-1, 2276-4 ####[facility] [id number] [place] [address] [place] Iron binding capacity [Mass/Vol] 288 ug/dL Normal 232-386 [facility] Comment on above: Order Comment: Speci men Type: BLOOD SPECIMENOrdering Facility: [facility] Address: [address] [place] [address] Performed By: #### 2 284-8, 54626-4, 2275-4 ####[facility] [id number] [place] [address] [place] Iron/TIBC [Molar ratio] 22.6 % Normal 15.0-57.0 [facility] Comment on above: Order Comment: Speci men Type: BLOOD SPECIMENOrdering Facility: [facility] Address: [address] [place] [address] Performed By: #### 2 284-8, 43665-5, 2275-4 ####[facility] [id number] [place] [id number] [place] Retics #on 07-09-2024 Reticulocytes (Bld) [#/Vol] 0.54254 10*3/uL Normal 0.018-0.10 0 [facility] Comment on above: Order Comment: Speci men Type: BLOOD SPECIMENOrdering Facility: [facility] Address: [address] [place] [address] Performed By: #### 1 4196-0 ####[facility] [id number] [place] [address] [place] Reticulocytes (Bld) [#/Vol]o n 07-09-2024 Reticulocytes/100 RBC (Bld) 2.1 % High 0.4-2.0 [facility] Comment on above: Order Comment: Speci men Type: BLOOD SPECIMENOrdering Facility: [facility] Address: [facility] [place] [address] Performed By: #### 1 4196-0 ####[facility] [id number] [address] [facility] Tyree 07-06-2024 DAVID Telephone (LUCIA) LEYDA LOPEZ ([id number]) 1960 F Date Time Provider Department 07/06/24 DALI RICE During your visit today, we recorded the following information about you: Suellen Zaragoza LPN 07/06/2024 5:01 PM Signed Pt calls to report she does not need the whole nebulizer kit that was ordered. Pt reports she only needs the mask and the little cup. Pt is asking for new order to go to [facility] instead of [facility]. RADHA Mendieta Joy, APRN.CNP 07/08/2024 8:32 AM Signed Sent with specifications of what is needed Dali Rice APRN.CNP Allergies As of Date: 07/06/2024 Noted Allergy Reaction AMLODIPINE 06/13/2023 14 - Other: See Comments Comments: shaky and jittery ATIVAN (LORAZEPAM) 08/24/2014 1 - Mental Status Change 11 - Vomiting Comments: mood swings BACLOFEN 06/04/2014 1 - Mental Status Change Comments: angry,mood effect METHOTREXATE 12/20/2011 11 - Vomiting Comments: abdomen pain,vomiting, sbo NADOLOL 02/05/2013 5 - Intolerance Comments: body burning,tingly NEXIUM (ESOMEPRAZOLE MAGNESIUM) 07/15/2015 14 - Other: See Comments Comments: reflux-no relief PENICILLIN G 09/29/2012 8 - GI Upset Comments: patient reports these symptoms after medication was ordered PROPRANOLOL 01/30/2013 5 - Intolerance Comments: fatigue,sleepy Date Reviewed: 06/29/2024 Reviewed by: Michelle Beckham MA - Fully Assessed Reason for Visit: order for nebulizer supplies [Other] Primary Visit Diagnosis:Uncomplicated asthma, unspecified asthma severity, unspecified whether persistent ([facility]) [J45.909] Order(s):Nebulizer Accessories kit1 each every 4 hours as needed. Patient in need of mask and medication chamber for nebulizerDisp: 1 eachRfl: 11 Prescriptions as of 07/08/2024 - Nebulizer Accessories kit 1 each every 4 hours as needed. Patient in need of mask and medication chamber for nebulizer - pregabalin (LYRICA) 150 mg capsule Take 1 capsule by mouth two times a day for 90 days. - hydrOXYzine HCl (ATARAX) 50 mg tablet Take 1 tablet by mouth every 8 hours as needed for anxiety. - ipratropium (ATROVENT) 0.02 % nebulizer solution Use 2.5 mL via nebulizer four times a day as needed for wheezing/shortness of breath. Use over 5-15minutes. Dx:J45.40 - Nebulizer Accessories kit 1 each once daily. - albuterol (PROVENTIL) 2.5 mg /3 mL (0.083 %) nebulizer solution Use 3 mL via nebulizer every 4 hours as needed for wheezing/shortness of breath. - Nebulizer and Compressor For Neb 1 each every 4 hours as needed. - busPIRone (BUSPAR) 10 mg tablet Take 1 tablet by mouth three times a day. - loperamide (IMODIUM) 2 mg cap(s) Take 1 capsule by mouth three times a day as needed. - meloxicam (MOBIC) 15 mg tablet Take 1 tablet by mouth once daily. - SUMAtriptan (IMITREX) 50 mg tablet Take 1 tablet by mouth as needed for migraine headache (see administration instructions). START AT ONSET OF HEADACHE. MAY REPEAT DOSE AFTER 2 HOURS. - traZODone (DESYREL) 50 mg tablet Take 1 tablet by mouth daily at bedtime. - Blood Pressure Monitor 1 Each as needed. - OXYGEN, HOME THERAPY, 2 L/min by Nasal Cannula route as directed. At night AND 5 L/min when mobile - predniSONE (DELTASONE) 20 mg tablet Please take the pill for 7 days followed by taking half the pill for another 7 days and stop. - tiZANidine (ZANAFLEX) 4 mg tablet Take 1 tablet by mouth every 8 hours as needed. - furosemide (LASIX) 40 mg tablet Take 1 tablet by mouth once daily. - lisinopril (ZESTRIL) 40 mg tablet Take 1 tablet by mouth once daily. - escitalopram oxalate (LEXAPRO) 20 mg tablet Take 1 tablet by mouth once daily. - atorvastatin (LIPITOR) 40 mg tablet TAKE ONE TABLET BY MOUTH DAILY AT 9PM AT BEDTIME - amitriptyline 150 mg tablet Take 1 tablet by mouth daily at bedtime. - ondansetron orally disintegrating (ZOFRAN ODT) 4 mg disintegrating tablet Take 1 tablet by mouth every 8 hours as needed. - fluticasone-salmeterol (ADVAIR, WIXELA) 250-50 mcg/dose inhaler INHALE 1 PUFF BY MOUTH DIRECTED TWICE DAILY - potassium chloride ER (KLOR-CON) 20 mEq tablet Take 1 tablet by mouth once daily. - nitroglycerin sublingual (NITROQUICK) 0.4 mg SL tablet Dissolve 0.4 mg under the tongue every 5 minutes as needed for chest pain. - acetaminophen 325 mg cap Take by mouth. - Dexlansoprazole (DEXILANT) 60 mg CpDM TAKE ONE CAPSULE BY MOUTH DAILY AT 9AM - hyoscyamine sublingual (LEVSIN SL) 0.125 mg Dissolve 1 tablet under the tongue three times daily as needed. - Cholecalciferol, Vitamin D3, 2,000 unit tab Take 2 tablets by mouth once daily. Meds Comments as of 07/05/2023: Patient is not sure what antibiotic she was place on in hospital Problem List As Of Date 07/06/2024 Noted Resolved Essential hypertension [I10] 03/22/2005 Moderate episode of recurrent major depressive *03/22/2005 PANIC DISORDER WIT (more content not included)... Normal [facility] CNPNon 06-30-2024 MARIETTAN Telephone (INTMWS) LEYDA LOPEZ ([id number]) 1960 F Date Time Provider Department 06/30/24 DALI RICE During your visit today, we recorded the following information about you: Kellen Alexandra LPN 06/30/2024 10:31 AM Signed Patient calling asking for her lab results, concerned since can she on her my chart says abnormal results. Aware computer shows 5 tests are still in process not completed as yet, may be tomorrow before results are all back. Aware CARPET BINDER is out of the office today. Please advise Dali Rice APRN.CNP 07/01/2024 1:53 PM Signed See Results follow up from today Dali Rice APRN.CNP Allergies As of Date: 06/30/2024 Noted Allergy Reaction AMLODIPINE 06/13/2023 14 - Other: See Comments Comments: kale ATIVAN (LORAZEPAM) 08/24/2014 1 - Mental Status Change 11 - Vomiting Comments: mood swings BACLOFEN 06/04/2014 1 - Mental Status Change Comments: angry,mood effect METHOTREXATE 12/20/2011 11 - Vomiting Comments: abdomen pain,vomiting, sbo NADOLOL 02/05/2013 5 - Intolerance Comments: body burning,tingly NEXIUM (ESOMEPRAZOLE MAGNESIUM) 07/15/2015 14 - Other: See Comments Comments: reflux-no relief PENICILLIN G 09/29/2012 8 - GI Upset Comments: patient reports these symptoms after medication was ordered PROPRANOLOL 01/30/2013 5 - Intolerance Comments: fatigue,sleepy Date Reviewed: 06/29/2024 Reviewed by: Michelle Beckham MA - Fully Assessed Reason for Visit: Results, Lab [1201] Prescriptions as of 07/01/2024 - hydrOXYzine HCl (ATARAX) 50 mg tablet Take 1 tablet by mouth every 8 hours as needed for anxiety. - ipratropium (ATROVENT) 0.02 % nebulizer solution Use 2.5 mL via nebulizer four times a day as needed for wheezing/shortness of breath. Use over 5-15minutes. Dx:J45.40 - Nebulizer Accessories kit 1 each once daily. - albuterol (PROVENTIL) 2.5 mg /3 mL (0.083 %) nebulizer solution Use 3 mL via nebulizer every 4 hours as needed for wheezing/shortness of breath. - Nebulizer and Compressor For Neb 1 each every 4 hours as needed. - busPIRone (BUSPAR) 10 mg tablet Take 1 tablet by mouth three times a day. - loperamide (IMODIUM) 2 mg cap(s) Take 1 capsule by mouth three times a day as needed. - meloxicam (MOBIC) 15 mg tablet Take 1 tablet by mouth once daily. - SUMAtriptan (IMITREX) 50 mg tablet Take 1 tablet by mouth as needed for migraine headache (see administration instructions). START AT ONSET OF HEADACHE. MAY REPEAT DOSE AFTER 2 HOURS. - traZODone (DESYREL) 50 mg tablet Take 1 tablet by mouth daily at bedtime. - Blood Pressure Monitor 1 Each as needed. - OXYGEN, HOME THERAPY, 2 L/min by Nasal Cannula route as directed. At night AND 5 L/min when mobile - predniSONE (DELTASONE) 20 mg tablet Please take the pill for 7 days followed by taking half the pill for another 7 days and stop. - tiZANidine (ZANAFLEX) 4 mg tablet Take 1 tablet by mouth every 8 hours as needed. - furosemide (LASIX) 40 mg tablet Take 1 tablet by mouth once daily. - lisinopril (ZESTRIL) 40 mg tablet Take 1 tablet by mouth once daily. - escitalopram oxalate (LEXAPRO) 20 mg tablet Take 1 tablet by mouth once daily. - atorvastatin (LIPITOR) 40 mg tablet TAKE ONE TABLET BY MOUTH DAILY AT 9PM AT BEDTIME - amitriptyline 150 mg tablet Take 1 tablet by mouth daily at bedtime. - pregabalin (LYRICA) 150 mg capsule Take 1 capsule by mouth two times a day for 90 days. - ondansetron orally disintegrating (ZOFRAN ODT) 4 mg disintegrating tablet Take 1 tablet by mouth every 8 hours as needed. - fluticasone-salmeterol (ADVAIR, WIXELA) 250-50 mcg/dose inhaler INHALE 1 PUFF BY MOUTH DIRECTED TWICE DAILY - potassium chloride ER (KLOR-CON) 20 mEq tablet Take 1 tablet by mouth once daily. - nitroglycerin sublingual (NITROQUICK) 0.4 mg SL tablet Dissolve 0.4 mg under the tongue every 5 minutes as needed for chest pain. - acetaminophen 325 mg cap Take by mouth. - Dexlansoprazole (DEXILANT) 60 mg CpDM TAKE ONE CAPSULE BY MOUTH DAILY AT 9AM - hyoscyamine sublingual (LEVSIN SL) 0.125 mg Dissolve 1 tablet under the tongue three times daily as needed. - Cholecalciferol, Vitamin D3, 2,000 unit tab Take 2 tablets by mouth once daily. Meds Comments as of 07/05/2023: Patient is not sure what antibiotic she was place on in hospital Problem List As Of Date 06/30/2024 Noted Resolved Essential hypertension [I10] 03/22/2005 Moderate episode of recurrent major depressive *03/22/2005 PANIC DISORDER WITHOUT AGORAPHOBIA [F41.0] 03/22/2005 Asthma [J45.909] 03/22/2005 Hyperlipidemia [E78.5] ANEMIA BLOOD LOSS CHRONIC [D50.0] 12/23/2007 12/01/2013 BONE AND CARTILAGE DIS NOS [M89.9, M94.9] 02/09/2008 CRI (chronic renal insufficiency) (HCC) [N18.9] 09/30/2009 12/01/2013 Bipolar affective [F31.9] 04/27/2010 05/21/2018 COPD (chronic obstructive pulmonary disease) [J (more content not included)... Normal [facility] ALBUMIN/CREATININE RATIO, UR INEon 06-29-2024 Albumin DL <= 20 mg/L (U) [Mass/Vol] mg/dL Normal [facility] Comment on above: Order Comment: Speci men Type: URINE SPECIMENOrdering Facility: [facility] Address: [address] [place] [address] Performed By: #### U ACR ####[facility] [id number] [place] [address] [place] Albumin/Creatinine (U) [Mass ratio] <9 Normal <30 [facility] Comment on above: Order Comment: Speci men Type: URINE SPECIMENOrdering Facility: [facility] Address: [address] [place] [address] Result Comment: Adul t Male and Female Nephrotic Criteria: <30 mg/g is considered normal to mildly increased 30-300 mg/g is considered moderately increased >300 mg/g is considered severely increased KDIGO. (2013). KDIGO 2012 Clinical Practice Guideline for the Evaluation and Management of Chronic Kidney Disease. Official Journal of the International Society of Nephrology, 3(1), 1-150. Performed By: #### U ACR ####[facility] [id number] [place] [address] [place] Creatinine (U) [Mass/Vol] 132.7 mg/dL Normal 20.0-300.0 [facility] Comment on above: Order Comment: Speci men Type: URINE SPECIMENOrdering Facility: [facility] Address: [address] [place] [address] Performed By: #### U ACR ####[facility] [id number] [place] [address] [place] CBC W Auto Differential pane l (Bld)on 06-29-2024 Basophils (Bld) [#/Vol] 0.03 10*3/uL Normal <0.11 [facility] Comment on above: Order Comment: Speci men Type: BLOOD SPECIMENOrdering Facility: [facility] Address: [address] [place] [address] Performed By: #### 5 7021-8 ####[facility] [id number] [place] [address] [place] Basophils/100 WBC (Bld) 0.4 % Normal [facility] Comment on above: Order Comment: Speci men Type: BLOOD SPECIMENOrdering Facility: [facility] Address: [address] [place] [address] Performed By: #### 5 7021-8 ####[facility] [id number] [address], [facility]95 [place] Differential cell count method Nom (Bld) Auto Normal [facility] Comment on above: Order Comment: Speci men Type: BLOOD SPECIMENOrdering Facility: [facility] Address: [address] [place] [address] Performed By: #### 5 7021-8 ####[facility] [id number] [place] [address] [place] Eosinophils (Bld) [#/Vol] 0.31 10*3/uL Normal <0.46 [facility] Comment on above: Order Comment: Speci men Type: BLOOD SPECIMENOrdering Facility: [facility] Address: [address] [place] [address] Performed By: #### 5 7021-8 ####[facility] [id number] [place] [address] [place] Eosinophils/100 WBC (Bld) 4.2 % Normal [facility] Comment on above: Order Comment: Speci men Type: BLOOD SPECIMENOrdering Facility: [facility] Address: [address] [place] [address] Performed By: #### 5 7021-8 ####[facility] [id number] [place] [address] [place] Erythrocyte distribution width (RBC) [Ratio] 12.9 % Normal 11.5-15.0 [facility] Comment on above: Order Comment: Speci men Type: BLOOD SPECIMENOrdering Facility: [facility] Address: [address] [place] [address] Performed By: #### 5 7021-8 ####[facility] [facility] [id number] [place] [id number] [place] Hematocrit (Bld) [Volume fraction] 32.3 % Low 36.0-46.0 [facility] Comment on above: Order Comment: Speci men Type: BLOOD SPECIMENOrdering Facility: [facility] Address: [address] [place] [address] Performed By: #### 5 7021-8 ####[facility] [id number] [place] [address] [place] Hemoglobin (Bld) [Mass/Vol] 10.4 g/dL Low 11.5-15.5 [facility] Comment on above: Order Comment: Speci men Type: BLOOD SPECIMENOrdering Facility: [facility] Address: [address] [place] [address] Performed By: #### 5 7021-8 ####[facility] [id number] [place] [address] [place] Immature granulocytes (Bld) [#/Vol] 10*3/uL Normal <0.10 [facility] Comment on above: Order Comment: Speci men Type: BLOOD SPECIMENOrdering Facility: [facility] Address: [address] [place] [address] Performed By: #### 5 7021-8 ####[facility] [id number] [place] [address] [place] Immature granulocytes/100 WBC (Bld) 0.3 % Normal [facility] Comment on above: Order Comment: Speci men Type: BLOOD SPECIMENOrdering Facility: [facility] Address: [address] [place] [address] Performed By: #### 5 7021-8 ####[facility] [id number] [place] [address] [place] Lymphocytes (Bld) [#/Vol] 1.94 10*3/uL Normal 1.00-4.00 [facility] Comment on above: Order Comment: Speci men Type: BLOOD SPECIMENOrdering Facility: [facility] Address: [address] [place] [address] Performed By: #### 5 7021-8 ####[facility] [id number] [place] [address] [place] Lymphocytes/100 WBC (Bld) 26.1 % Normal [facility] Comment on above: Order Comment: Speci men Type: BLOOD SPECIMENOrdering Facility: [facility] Address: [address] [place] [address] Performed By: #### 5 7021-8 ####[facility] [id number] [place] [address] [place] MCH (RBC) [Entitic mass] 29.7 pg Normal 26.0-34.0 [facility] Comment on above: Order Comment: Speci men Type: BLOOD SPECIMENOrdering Facility: [facility] Address: [address] [place] [address] Performed By: #### 5 7021-8 ####[facility] [id number] [place] [address] [place] MCHC (RBC) [Mass/Vol] 32.2 g/dL Normal 30.5-36.0 [facility] Comment on above: Order Comment: Speci men Type: BLOOD SPECIMENOrdering Facility: [facility] Address: [address] [place] [address] Performed By: #### 5 7021-8 ####[facility] [id number] [place] [address] [place] MCV (RBC) [Entitic vol] 92.3 fL Normal 80.0-100.0 [facility] Comment on above: Order Comment: Speci men Type: BLOOD SPECIMENOrdering Facility: [facility] Address: [address] [place] [address] Performed By: #### 5 7021-8 ####[facility] [id number] [place] [address] [place] Monocytes (Bld) [#/Vol] 0.50 10*3/uL Normal <0.87 [facility] Comment on above: Order Comment: Speci men Type: BLOOD SPECIMENOrdering Facility: [facility] Address: [address] [place] [address] Performed By: #### 5 7021-8 ####[facility] [id number] [facility] [address] [address] [place] Monocytes/100 WBC (Bld) 6.7 % Normal [facility] Comment on above: Order Comment: Speci men Type: BLOOD SPECIMENOrdering Facility: [facility] Address: [address] [place] [address] Performed By: #### 5 7021-8 ####[facility] [id number] [address], [place] [address] [place] Neutrophils (Bld) [#/Vol] 4.63 10*3/uL Normal 1.45-7.50 [facility] Comment on above: Order Comment: Speci men Type: BLOOD SPECIMENOrdering Facility: [facility] Address: [address] [place] [address] Performed By: #### 5 7021-8 ####[facility] [id number] [place] [address] [place] Neutrophils/100 WBC (Bld) 62.3 % Normal [facility] Comment on above: Order Comment: Speci men Type: BLOOD SPECIMENOrdering Facility: [facility] Address: [address] [place] [address] Performed By: #### 5 7021-8 ####[facility] [id number] [place] [id number] [place] Nucleated RBC (Bld) [#/Vol] 10*3/uL Normal <0.01 [facility] Comment on above: Order Comment: Speci men Type: BLOOD SPECIMENOrdering Facility: [facility] Address: [address] [place] [address] Performed By: #### 5 7021-8 ####[facility] [id number] [address], [place] [address] [place] Nucleated RBC/100 WBC (Bld) [Ratio] 0.0 /100 WBC Normal [facility] Comment on above: Order Comment: Speci men Type: BLOOD SPECIMENOrdering Facility: [facility] Address: [address] [place] [address] Performed By: #### 5 7021-8 ####[facility] [id number] [address], [facility]95 [place] Platelet mean volume (Bld) [Entitic vol] 10.8 fL Normal 9.0-12.7 [facility] Comment on above: Order Comment: Speci men Type: BLOOD SPECIMENOrdering Facility: [facility] Address: [address] [place] [address] Performed By: #### 5 7021-8 ####[facility] [id number] [address], [place] [address] [place] Platelets (Bld) [#/Vol] 218 10*3/uL Normal 150-400 [facility] Comment on above: Order Comment: Speci men Type: BLOOD SPECIMENOrdering Facility: [facility] Address: [address] [place] [address] Performed By: #### 5 7021-8 ####[facility] [id number] [address], [place] [address] [place] RBC (Bld) [#/Vol] 3.50 10*6/uL Low 3.90-5.20 [facility] Comment on above: Order Comment: Speci men Type: BLOOD SPECIMENOrdering Facility: [facility] Address: [address] [place] [address] Performed By: #### 5 7021-8 ####[facility] [id number] [place] AV[id number] [place] WBC (Bld) [#/Vol] 7.43 10*3/uL Normal 3.70-11.00 [facility] Comment on above: Order Comment: Speci men Type: BLOOD SPECIMENOrdering Facility: [facility] Address: [address] [place] [address] Performed By: #### 5 7021-8 ####[facility] [id number] [place] [id number] [place] [address] [place] CNOVon 06-29-2024 CNOV Office Visit (INTMWS ) LEYDA LOPEZ ([id number]) 1960 F Date Time Provider Department 06/29/24 3:00 PM DALI RICE During your visit today, we recorded the following information about you: Pulse Respiration Blood pressure Weight Normal [facility] Tyree 06-29-2024 MARIETTAN Telephone (FAMWS) LEYDA LOPEZ ([id number]) 1960 F Date Time Provider Department 06/29/24 DALI RICE During your visit today, we recorded the following information about you: Dali Rice APRN.CNP 06/29/2024 5:08 PM Signed Did patient ever establish with pulmonology as ordered as last year? If not I did order it today and she needs to establish. Thank you SERENITY Pagan Amanda, RICARDO 06/29/2024 7:40 PM Signed Called and left a voicemail for the Patient to call back and ask for a nurse to receive the providers message. RICARDO Rose Krista, LPN 07/06/2024 4:57 PM Signed Pt reports she has not established yet but she is getting a CT tomorrow and will schedule with pulmonary then. Suellen Zaragoza LPN Allergies As of Date: 06/29/2024 Noted Allergy Reaction AMLODIPINE 06/13/2023 14 - Other: See Comments Comments: shaky and jittery ATIVAN (LORAZEPAM) 08/24/2014 1 - Mental Status Change 11 - Vomiting Comments: mood swings BACLOFEN 06/04/2014 1 - Mental Status Change Comments: angry,mood effect METHOTREXATE 12/20/2011 11 - Vomiting Comments: abdomen pain,vomiting, sbo NADOLOL 02/05/2013 5 - Intolerance Comments: body burning,tingly NEXIUM (ESOMEPRAZOLE MAGNESIUM) 07/15/2015 14 - Other: See Comments Comments: reflux-no relief PENICILLIN G 09/29/2012 8 - GI Upset Comments: patient reports these symptoms after medication was ordered PROPRANOLOL 01/30/2013 5 - Intolerance Comments: fatigue,sleepy Date Reviewed: 06/29/2024 Reviewed by: Michelle Beckham MA - Fully Assessed Reason for Visit: Orders [681] Prescriptions as of 07/13/2024 - Nebulizer Accessories kit 1 each every 4 hours as needed. Patient in need of mask and medication chamber for nebulizer - pregabalin (LYRICA) 150 mg capsule Take 1 capsule by mouth two times a day for 90 days. - hydrOXYzine HCl (ATARAX) 50 mg tablet Take 1 tablet by mouth every 8 hours as needed for anxiety. - ipratropium (ATROVENT) 0.02 % nebulizer solution Use 2.5 mL via nebulizer four times a day as needed for wheezing/shortness of breath. Use over 5-15minutes. Dx:J45.40 - Nebulizer Accessories kit 1 each once daily. - albuterol (PROVENTIL) 2.5 mg /3 mL (0.083 %) nebulizer solution Use 3 mL via nebulizer every 4 hours as needed for wheezing/shortness of breath. - Nebulizer and Compressor For Neb 1 each every 4 hours as needed. - busPIRone (BUSPAR) 10 mg tablet Take 1 tablet by mouth three times a day. - loperamide (IMODIUM) 2 mg cap(s) Take 1 capsule by mouth three times a day as needed. - meloxicam (MOBIC) 15 mg tablet Take 1 tablet by mouth once daily. - SUMAtriptan (IMITREX) 50 mg tablet Take 1 tablet by mouth as needed for migraine headache (see administration instructions). START AT ONSET OF HEADACHE. MAY REPEAT DOSE AFTER 2 HOURS. - traZODone (DESYREL) 50 mg tablet Take 1 tablet by mouth daily at bedtime. - Blood Pressure Monitor 1 Each as needed. - OXYGEN, HOME THERAPY, 2 L/min by Nasal Cannula route as directed. At night AND 5 L/min when mobile - predniSONE (DELTASONE) 20 mg tablet Please take the pill for 7 days followed by taking half the pill for another 7 days and stop. - tiZANidine (ZANAFLEX) 4 mg tablet Take 1 tablet by mouth every 8 hours as needed. - furosemide (LASIX) 40 mg tablet Take 1 tablet by mouth once daily. - lisinopril (ZESTRIL) 40 mg tablet Take 1 tablet by mouth once daily. - escitalopram oxalate (LEXAPRO) 20 mg tablet Take 1 tablet by mouth once daily. - atorvastatin (LIPITOR) 40 mg tablet TAKE ONE TABLET BY MOUTH DAILY AT 9PM AT BEDTIME - amitriptyline 150 mg tablet Take 1 tablet by mouth daily at bedtime. - ondansetron orally disintegrating (ZOFRAN ODT) 4 mg disintegrating tablet Take 1 tablet by mouth every 8 hours as needed. - fluticasone-salmeterol (ADVAIR, WIXELA) 250-50 mcg/dose inhaler INHALE 1 PUFF BY MOUTH DIRECTED TWICE DAILY - potassium chloride ER (KLOR-CON) 20 mEq tablet Take 1 tablet by mouth once daily. - nitroglycerin sublingual (NITROQUICK) 0.4 mg SL tablet Dissolve 0.4 mg under the tongue every 5 minutes as needed for chest pain. - acetaminophen 325 mg cap Take by mouth. - Dexlansoprazole (DEXILANT) 60 mg CpDM TAKE ONE CAPSULE BY MOUTH DAILY AT 9AM - hyoscyamine sublingual (LEVSIN SL) 0.125 mg Dissolve 1 tablet under the tongue three times daily as needed. - Cholecalciferol, Vitamin D3, 2,000 unit tab Take 2 tablets by mouth once daily. Meds Comments as of 07/05/2023: Patient is not sure what antibiotic she was place on in hospital Problem List As Of Date 06/29/2024 Noted Resolved Essential hypertension [I10] 03/22/2005 Moderate episode of recurrent major depressive *03/22/2005 PANIC DISORDER WITHOUT AGORAPHOBIA [F41.0] 03/22/2005 Asthma [J45.909] 03/22/2005 Hyperlipidemia [E78.5] ANEMIA BLOOD LOSS (more content not included)... Normal [facility] Comprehensive metabolic 2000 panelon 06-29-2024 Albumin [Mass/Vol] 3.8 g/dL Low 3.9-4.9 [facility] Comment on above: Order Comment: Speci men Type: BLOOD SPECIMENOrdering Facility: [facility] Address: [address] [place] [address] Performed By: #### 2 4323-8, 6-3, , 99190-5 ####[facility] [id number] [place] [address] [place] ALP [Catalytic activity/Vol] 112 U/L Normal 34-123 [facility] Comment on above: Order Comment: Speci men Type: BLOOD SPECIMENOrdering Facility: [facility] Address: [address] [place] [address] Performed By: #### 2 4323-8, 3015-3, , 99490-1 ####[facility] [id number] [address] [address] [place] ALT [Catalytic activity/Vol] 21 U/L Normal 7-38 [facility] Comment on above: Order Comment: Speci men Type: BLOOD SPECIMENOrdering Facility: [facility] Address: [address] [place], [place] [address] Performed By: #### 2 4323-8, 6-3, , 25937-9 ####[facility] [id number] [address] [address] [place] Anion gap [Moles/Vol] 9 mmol/L Normal 8-15 [facility] Comment on above: Order Comment: Speci men Type: BLOOD SPECIMENOrdering Facility: [facility] Address: [address] [place] [address] Performed By: #### 2 4323-8, 6-3, 01264-9, 54962-1 ####[facility] [id number] [place] [address] [place] AST [Catalytic activity/Vol] 20 U/L Normal 13-35 [facility] Comment on above: Order Comment: Speci men Type: BLOOD SPECIMENOrdering Facility: [facility] Address: [address] [place] [address] Performed By: #### 2 4323-8, 6-3, , 15787-9 ####[facility] [id number] [place] [address] [place] Bilirubin [Mass/Vol] mg/dL Low 0.2-1.3 [facility] Comment on above: Order Comment: Speci men Type: BLOOD SPECIMENOrdering Facility: [facility] Address: [address] [place] [address] Performed By: #### 2 4323-8, 6-3, , 59732-2 ####[facility] [id number] [place] [address] [place] Calcium [Mass/Vol] 9.0 mg/dL Normal 8.5-10.2 [facility] Comment on above: Order Comment: Speci men Type: BLOOD SPECIMENOrdering Facility: [facility] Address: [address] [place], [place] [address] Performed By: #### 2 4323-8, 3016-3, 48382-1, 26427-6 ####[facility] [id number] [place] [address] [place] Chloride [Moles/Vol] 105 mmol/L Normal 98-107 [facility] Comment on above: Order Comment: Speci men Type: BLOOD SPECIMENOrdering Facility: [facility] Address: [address] [place] [address] Performed By: #### 2 4323-8, 3016-3, 15921-3, 73974-6 ####[facility] [id number] [place] [address] [place] CO2 [Moles/Vol] 28 mmol/L Normal 22-30 [facility] Comment on above: Order Comment: Speci men Type: BLOOD SPECIMENOrdering Facility: [facility] Address: [address] [place] [address] Performed By: #### 2 4323-8, 3016-3, 35372-7, 47670-4 ####[facility] [id number] [place] [address] [place] Creatinine [Mass/Vol] 0.98 mg/dL High 0.58-0.96 [facility] Comment on above: Order Comment: Speci men Type: BLOOD SPECIMENOrdering Facility: [facility] Address: [address] [place] [address] Performed By: #### 2 4323-8, 3016-3, , 25846-8 ####[facility] [id number] [place] [address] [place] Creatinine and Glomerular filtration rate.predicted panel (S/P/Bld) 65 mL/min/1.73m??? Normal >=60 [facility] Comment on above: Order Comment: Speci men Type: BLOOD SPECIMENOrdering Facility: [facility] Address: [address] [place] [address] Result Comment: [place] mated Glomerular Filtration Rate (eGFR) is calculated using the 2020 CKD-EPI creatinine equation. This equation utilizes serum creatinine, sex, and age as parameters. The creatinine assay has traceable calibration to isotope dilution-mass spectrometry. Refer to KDIGO guidelines for clinical interpretation. In patients with unstable renal function, e.g. those with acute kidney injury, the eGFR may not accurately reflect actual GFR. Performed By: #### 2 4323-8, 6-3, , 07133-8 ####[facility] [id number] [address] [address] [place] Glucose [Mass/Vol] 107 mg/dL High 74-99 [facility] Comment on above: Order Comment: Perez holden Type: BLOOD SPECIMENOrdering Facility: [facility] Address: [address] [place] [address] Result Comment: The [place] Diabetes Association (ADA) provides guidance for cutoff values for fasting glucose and random glucose. The ADA defines fasting as no caloric intake for at least 8 hours. Fasting plasma glucose results between 100 to 125 mg/dL indicate increased risk for diabetes (prediabetes). Fasting plasma glucose results greater than or equal to 126 mg/dL meet the criteria for diagnosis of diabetes. In the absence of unequivocal hyperglycemia, results should be confirmed by repeat testing. In a patient with classic symptoms of hyperglycemia or hyperglycemic crisis, random plasma glucose results greater than or equal to 200 mg/dL meet the criteria for diagnosis of diabetes. Reference: Standards of Medical Care in Diabetes 2016, [place] Diabetes Association. Diabetes Care. 2016.39(Suppl 1). Performed By: #### 2 4323-8, 3015-3, , ####[facility] [id number] [address] [address] [place] Potassium [Moles/Vol] 4.2 mmol/L Normal 3.7-5.1 [facility] Comment on above: Order Comment: Perez holden Type: BLOOD SPECIMENOrdering Facility: [facility] Address: [address] [place] [address] Performed By: #### 2 4323-8, 3016-3, , 64363-0 ####[facility] [id number] [address] [address] [place] Protein [Mass/Vol] 6.7 g/dL Normal 6.3-8.0 [facility] Comment on above: Order Comment: Speci men Type: BLOOD SPECIMENOrdering Facility: [facility] Address: [address] [place] [address] Performed By: #### 2 4323-8, 3016-3, 98182-1, 68716-7 ####[facility] [id number] [address] [address] [place] Sodium [Moles/Vol] 142 mmol/L Normal 136-144 [facility] Comment on above: Order Comment: Speci men Type: BLOOD SPECIMENOrdering Facility: [facility] Address: [address] [place] [address] Performed By: #### 2 4323-8, 6-3, , 64436-4 ####[facility] [id number] [address] [address] [place] Urea nitrogen [Mass/Vol] 18 mg/dL Normal 7-21 [facility] Comment on above: Order Comment: Speci men Type: BLOOD SPECIMENOrdering Facility: [facility] Address: [address] [place] [address] Performed By: #### 2 4323-8, 3016-3, , 62762-2 ####[facility] [id number] [address] [address] [place] HbA1c (Bld)on 06-29-2024 Average glucose Estimated from glycated hemoglobin (Bld) [Mass/Vol] 111 mg/dL Normal [facility] Comment on above: Order Comment: Speci men Type: BLOOD SPECIMENOrdering Facility: [facility] Address: [address] [place], [place] [address] Result Comment: eAG: (Estimated average glucose) is a calculated value from HgbA1c and is traffic workforce representative of the average blood glucose level in the last 2-3 month period. Performed By: #### 5 5454-3 ####[facility] [id number] [place] [address] [place] HbA1c (Bld) [Mass fraction] 5.5 % Normal 4.3-5.6 [facility] Comment on above: Order Comment: Perez holden Type: BLOOD SPECIMENOrdering Facility: [facility] Address: [address] [place] [address] Result Comment: [place] Diabetes Association guidelines indicate that patients with HgbA1c in the range 5.7-6.4% are at increased risk for development of diabetes, and intervention by lifestyle modification may be beneficial. HgbA1c greater or equal to 6.5% is considered diagnostic of diabetes. Performed By: #### 5 5454-3 ####[facility] [id number] [place] [address] [place] Lipid 1996 panelon 5 Cholesterol [Mass/Vol] 185 mg/dL Normal <200 [facility] Comment on above: Order Comment: Perez holden Type: BLOOD SPECIMENOrdering Facility: [facility] Address: [address] [place] [address] Result Comment: <200 mg/dL, Desirable 200-239 mg/dL, Borderline high >239 mg/dL, High Performed By: #### 2 4323-8, 3016-3, 08640-9, 91063-9 ####[facility] [id number] [place] [id number] [facility] [place] Cholesterol in HDL [Mass/Vol] 34 mg/dL Low >39 [facility] Comment on above: Order Comment: Perez holden Type: BLOOD SPECIMENOrdering Facility: [facility] Address: [address] [place] [address] Result Comment: 40-5 9 mg/dL, Acceptable >59 mg/dL, High: Negative risk factor for coronary heart disease <40 mg/dL, Low: Positive risk factor for coronary heart disease Performed By: #### 2 4323-8, 3016-3, 01890-0, 37702-4 ####[facility] [id number] [address] [address] [place] Cholesterol in LDL [Mass/Vol] 88 mg/dL Normal <100 [facility] Comment on above: Order Comment: Speci men Type: BLOOD SPECIMENOrdering Facility: [facility] Address: [address] [place] [address] Result Comment: <100 mg/dL, Optimal 100-129 mg/dL, Near optimal/above optimal 130-159 mg/dL, Borderline high 160-189 mg/dL, High >189 mg/dL, Very high Secondary prevention optimal LDL Cholesterol levels are recommended to be <70 mg/dL LDL cholesterol is calculated using the Blake-NIH equation. Performed By: #### 2 4323-8, 6-3, , ####[facility] [id number] [address] [place] Cholesterol in LDL/Cholesterol in HDL [Mass ratio] 2.59 {ratio} High <2.54 [facility] Comment on above: Order Comment: Speci men Type: BLOOD SPECIMENOrdering Facility: [facility] Address: [address] [place] [address] Result Comment: Refe rence: 1. National Cholesterol Education Program ATP III Guideline At-A-Glance Quick Desk Reference: National Heart, Lung, and Blood Lutts. National Institutes of Health. 2001: NIH Publication No. 01-3305. 2. An International Atherosclerosis Society position paper: global recommendations for the management of dyslipidemia: executive summary, Atherosclerosis. 2014: 232(2):410-413. Performed By: #### 2 4323-8, 6-3, 62747-0, ####[facility] [id number] [address] [address] [place] Cholesterol in VLDL [Mass/Vol] 61 mg/dL High <30 [facility] Comment on above: Order Comment: Speci men Type: BLOOD SPECIMENOrdering Facility: [facility] Address: [address] [place] [address] Performed By: #### 2 4323-8, 3015-3, , 89068-3 ####[facility] [id number] [address] [address] [place] Cholesterol non HDL [Mass/Vol] 151 mg/dL High <130 [facility] Comment on above: Order Comment: Speci men Type: BLOOD SPECIMENOrdering Facility: [facility] Address: [address] [place] [id number] Result Comment: <130 mg/dL, Optimal 130-159 mg/dL, Near optimal/above optimal 160-189 mg/dL, Borderline high 190-219 mg/dL, High >219 mg/dL, Very high Secondary prevention optimal non HDL Cholesterol levels are recommended to be <100 mg/dL Performed By: #### 2 4323-8, 3015-3, , 78838-5 ####[facility] [id number] [address] [address] [place] Cholesterol.total/Chol esterol in HDL [Mass ratio] 5.44 {ratio} High <5.10 [facility] Comment on above: Order Comment: Speci men Type: BLOOD SPECIMENOrdering Facility: [facility] Address: [address] [place] [address] Performed By: #### 2 4323-8, 3015-3, , 32254-6 ####[facility] [id number] [address] [address] [place] FASTING TIME 10 hrs Normal [facility] Comment on above: Order Comment: Speci men Type: BLOOD SPECIMENOrdering Facility: [facility] Address: [address] [place] [address] Performed By: #### 2 4323-8, 3015-3, , 85884-9 ####[facility] [id number] [place] [id number] [place] Triglyceride [Mass/Vol] 382 mg/dL High <150 [facility] Comment on above: Order Comment: Speci men Type: BLOOD SPECIMENOrdering Facility: [facility] Address: [address] [place] [address] Result Comment: <150 mg/dL, Normal 150-199 mg/dL, Borderline high 200-499 mg/dL, High >499 mg/dL, Very high Performed By: #### 2 4323-8, 3016-3, 76955-8, 05886-4 ####[facility] [id number] [place] [id number] [place] Magnesium SerPl-mCncon 06-29 Magnesium [Mass/Vol] 2.0 mg/dL Normal 1.7-2.3 [facility] Comment on above: Order Comment: Speci men Type: BLOOD SPECIMENOrdering Facility: [facility] Address: [address] [place] [address] Performed By: #### 2 4323-8, 6-3, 28931-0, 83538-3 ####[facility] [id number] [place] [id number] [place] TSH SerPl-aCncon 06-29-2024 TSH Qn 1.890 m[IU]/L Normal 0.270-4.20 0 [facility] Comment on above: Order Comment: Speci men Type: BLOOD SPECIMENOrdering Facility: [facility] Address: [address] [place] [address] Performed By: #### 2 4323-8, 3016-3, 18959-9, 10996-1 ####[facility] [id number] [place] [id number] [place] Urinalysis complete panel (U )on 06-29-2024 Bacteria LM.HPF (Urine sed) [#/Area] Negative Normal Negative [facility] Comment on above: Order Comment: Speci men Type: URINE SPECIMENOrdering Facility: [facility] Address: [address] [place] [address] Performed By: #### 2 4356-8 ####[facility] [id number] [address] [place] [address] [place] Bilirubin Ql (U) Negative Normal Negative [facility] Comment on above: Order Comment: Speci men Type: URINE SPECIMENOrdering Facility: [facility] Address: [address] [place] [address] Performed By: #### 2 4356-8 ####[facility] [id number] [place] [address] [place] Clarity (Unsp spec) Clear Normal Clear [facility] Comment on above: Order Comment: Speci men Type: URINE SPECIMENOrdering Facility: [facility] Address: [address] [place] [address] Performed By: #### 2 4356-8 ####[facility] [id number] [place] [id number] [place] Color (U) Yellow Normal Yellow [facility] Comment on above: Order Comment: Speci men Type: URINE SPECIMENOrdering Facility: [facility] Address: [address] [place] [address] Performed By: #### 2 4356-8 ####[facility] [id number] [address], [facility]95 [place] Epithelial cells LM.HPF (Urine sed) [#/Area] None Seen Normal [facility] Comment on above: Order Comment: Speci men Type: URINE SPECIMENOrdering Facility: [facility] Address: [address] [place] [address] Performed By: #### 2 4356-8 ####[facility] [id number] [address], [facility]95 [place] Glucose Test strip (U) [Mass/Vol] Trace Abnormal Negative [facility] Comment on above: Order Comment: Speci men Type: URINE SPECIMENOrdering Facility: [facility] Address: [address] [place] [address] Performed By: #### 2 4356-8 ####[facility] [id number] [address] [place] [facility] [place] Hemoglobin Ql (U) Negative Normal Negative [facility] Comment on above: Order Comment: Speci men Type: URINE SPECIMENOrdering Facility: [facility] Address: [address] [place] [address] Performed By: #### 2 4356-8 ####[facility] [id number] [place] [address] [place] Hyaline casts (Urine sed) [#/Area] 0 /[LPF] Normal 0 /LPF [facility] Comment on above: Order Comment: Speci men Type: URINE SPECIMENOrdering Facility: [facility] Address: [address] [place] [address] Performed By: #### 2 4356-8 ####[facility] [id number] [place] [address] [place] Ketones Ql (U) Negative Normal Negative [facility] Comment on above: Order Comment: Speci men Type: URINE SPECIMENOrdering Facility: [facility] Address: [address] [place] [address] Performed By: #### 2 4356-8 ####[facility] [id number] [place] [id number] [place] Leukocyte esterase Test strip Ql (U) 1+ Abnormal Negative [facility] Comment on above: Order Comment: Speci men Type: URINE SPECIMENOrdering Facility: [facility] Address: [address] [place] [address] Performed By: #### 2 4356-8 ####[facility] [id number] [place] [address] [place] Nitrite Ql (U) Negative Normal Negative [facility] Comment on above: Order Comment: Speci men Type: URINE SPECIMENOrdering Facility: [facility] Address: [address] [place] [address] Performed By: #### 2 4356-8 ####[facility] [id number] [place] [address] [place] pH (U) 5.5 [pH] Normal <8.5 [facility] Comment on above: Order Comment: Speci men Type: URINE SPECIMENOrdering Facility: [facility] Address: [address] [place] [address] Performed By: #### 2 4356-8 ####[facility] [id number] [place] [address] [place] Protein (U) [Mass/Vol] Trace Abnormal Negative [facility] Comment on above: Order Comment: Speci men Type: URINE SPECIMENOrdering Facility: [facility] Address: [address] [place] [address] Performed By: #### 2 4356-8 ####[facility] [id number] [place] [address] [place] RBC LM.HPF (Urine sed) [#/Area] 0-2 /HPF Normal 0-2 /HPF [facility] Comment on above: Order Comment: Speci men Type: URINE SPECIMENOrdering Facility: [facility] Address: [address] [place] [address] Performed By: #### 2 4356-8 ####[facility] [id number] [place] [address] [place] Specific gravity (U) [Rel density] 1.022 Normal 1.005-1.03 0 [facility] Comment on above: Order Comment: Speci men Type: URINE SPECIMENOrdering Facility: [facility] Address: [address] [place] [address] Performed By: #### 2 4356-8 ####[facility] [id number] [place] [address] [place] [facility] Urobilinogen Ql (U) 0.2 EU/dL Normal 0.2-1.0 EU/dL [facility] Comment on above: Order Comment: Speci men Type: URINE SPECIMENOrdering Facility: [facility] Address: [address] [place] [address] Performed By: #### 2 4356-8 ####[facility] [id number] [place] [address] [place] WBC LM.HPF (Urine sed) [#/Area] 0-5 /HPF Normal 0-5 /HPF [facility] Comment on above: Order Comment: Speci men Type: URINE SPECIMENOrdering Facility: [facility] Address: [address] [place] [address] Performed By: #### 2 4356-8 ####[facility] [id number] [address] [place] Vit B12 SerPl-mCncon 06-29- 025 Cobalamin (Vitamin B12) [Mass/Vol] 350 pg/mL Normal 232-1245 [facility] Comment on above: Order Comment: Speci men Type: BLOOD SPECIMENOrdering Facility: [facility] Address: [address] [place] [address] Performed By: #### 2 132-9 ####[facility] [id number] [address] [place] CNOVon 06-19-2024 CNOV Office Visit (INTMWS ) LEYDA LOPEZ ([id number]) 1960 F Date Time Provider Department 06/19/24 10:00 AM DALI RICE During your visit today, we recorded the following information about you: Pulse Respiration Blood pressure Weight 68/minute 16/minute 128/66 64.4 kg Dali Rice APRN.PLATE FILLER 06/19/2024 11:25 AM Signed CC: Patient presents with: Recheck: Medication follow up HPI Leyda Lopez is a 63 year old female who presents today for COPD concerns. Recording using ambient [employer]AB[employer] software for draft documentation of the visit was discussed with the patient/authorized traffic workforce representative; all questions welcomed and answered. Patient/authorized traffic workforce representative agreed to proceed COPD: - Hospitalized for COPD exacerbation approximately one month ago; treated with azithromycin and prednisone. Alvarado better when on prednisone and would like to be on it again. - Suspected pneumonia during hospitalization, but not confirmed. - On home oxygen therapy: 2 L at night, 3-4 L during the day. - Reports improvement in activity levels; SpO2 around 94% on 3-4 L O2. - Persistent dyspnea, especially when climbing stairs. - Recent increase in dyspnea and wheezing over the past couple of weeks. - Unable to use albuterol inhaler due to difficulty with administration; prefers nebulizer treatments. -Never picked up nebulizer as ordered by hospital - Denies increased use of albuterol inhaler during recent exacerbation. - Recent episodes of diaphoresis and feeling unwell, particularly last night. Memory Changes: - at end of appointment this was brought up because patient was very poor historian on her concerns and boyfriend was trying to explain what patient needed. Has appointment to discuss this further as her psychiatrist called with concerns of this recently as well. Currently denies meth usage and states she is just under a lot of stress and is depressed due to her adult disabled daughter being removed from her home and resulting financial issues. - Noted memory changes over the past year and a half. Per boyfriend he has noticed this for a while but never brought it up. - No recent brain imaging performed. - No scheduled neurology appointment. REVIEW OF SYSTEMS See HPI PAST MEDICAL HISTORY Diagnosis Date Abdominal pain, right upper quadrant ADD (attention deficit disorder) Seeing psychiatry Anemia, unspecified Asthma Back pain chronic-Seeing Dr. Blankenship Bipolar affective disorder ([facility]) Chronic right shoulder pain Seeing Dr. Molina Closed dislocation of tarsometatarsal (joint) 01/18/2011 COPD (chronic obstructive pulmonary disease) ([facility]) Depressive disorder, not elsewhere classified 03/22/2005 Disorder of bone and cartilage, unspecified 02/09/2008 Distal radius fracture 01/05/2011 Dysuria Fibromyalgia GERD (gastroesophageal reflux disease) IBS (irritable bowel syndrome) Mitral regurgitation Severe Neck pain chronic-takes vicodin for this NSTEMI (non-ST elevated myocardial infarction) ([facility]) Seeing Dr. Hutton Other and unspecified hyperlipidemia Panic disorder without agoraphobia 03/22/2005 PMR (polymyalgia rheumatica) ([facility]) RA (rheumatoid arthritis) ([facility]) Unspecified essential hypertension 03/22/2005 PAST SURGICAL HISTORY Procedure Laterality Date COLONOSCOPY FLX DX W/COLLJ SPEC WHEN PFRMD 01/23/08 Normal COLONOSCOPY FLX DX W/COLLJ SPEC WHEN PFRMD 01/09/2012 Colonoscopy DIAGNOSTIC ARTHROSCOPY SHOULDER +- SYNOVIAL BX Right 04/10/2017 Right shoulder arthroscopy with open SAD and rotator cuff repair EGD TRANSORAL BIOPSY SINGLE/MULTIPLE 01/23/08 Minimal antral gastritis HEART CATHETERIZATION 01/2016 no intervention Partial hysterectomy still has ovaries PAST SURGICAL HISTORY OF 02/2016 total teeth extraction RMVL LENS MATERIAL PHACOFRAGMENTATION ASPIR 12/2010 Cataract Extraction RPR UMBILICAL HRNA 5 YRS/> REDUCIBLE 12/04/2016 Hernia repair, umbilical >5yr SURGICAL ARTHROSCOPY SHOULDER W/ROTATOR CUFF RPR Right 01/01/2018 Right shoulder arthroscopy SAD, Acromioplasty, debridement glenohumeral joint, biceps tenotomy, RCR, superior capsular reconstruction ALLERGIES Amlodipine, Ativan [Lorazepam], Baclofen, Methotrexate, Nadolol, Nexium [Esomeprazole Magnesium], Penicillin G, and Propranolol MEDICATIONS ipratropium (ATROVENT) 0.02 % nebulizer solution Use 2.5 mL via nebulizer four times a day as needed for wheezing/shortness of breath. Use over 5-15minutes. Dx:J45.40 Nebulizer Accessories kit 1 each once daily. albuterol (PROVENTIL) 2.5 mg /3 mL (0.083 %) nebulizer solution Use 3 mL via nebulizer every 4 hours as needed for wheezing/shortness of breath. Nebulizer and Compressor For Neb 1 each every 4 hours as needed. busPIRone (BUSPAR) 10 mg tablet Take 1 tablet by mouth three times a day. loperamide (IMODIUM) 2 mg cap(s) Take 1 capsule by mouth (more content not included)... Normal [facility] XR CHEST 2V FRONTAL/LATon XR CHEST 2V FRONTAL/LAT * * *Final Report* * * DATE OF EXAM: Jun 19 2024 10:58AM WOX [id number] - XR CHEST 2V FRONTAL/LAT / PROCEDURE REASON: Shortness of breath * * * * Physician Interpretation * * * * EXAMINATION: CHEST RADIOGRAPH (2 VIEW FRONTAL and LATERAL) CLINICAL HISTORY: Shortness of breath MQ: XC2_6 EXAM DATE/TIME: 06/19/2024 10:58 AM COMPARISON: 03/23/2021. RESULT: Lines, tubes, and devices: None. Lungs and pleura: There is hypoinflation of the lungs with chronic atelectatic changes in both lung bases. No consolidation. No lung mass. No pleural effusion. No pneumothorax. Cardiomediastinal silhouette: Stable cardiomediastinal silhouette. Bones and soft tissues: There is kyphoscoliosis of the thoracic spine. IMPRESSION: Chronic changes as described above with no definite acute radiographic abnormality. Regulatory Intern: ABBY Transcribe Date/Time: Jun 20 2024 9:56A Dictated by : GREGORIA ALEX MD This examination was interpreted and the report reviewed and electronically signed by: GREGORIA ALEX MD on Jun 20 2024 9:57AM EST [id number] Normal [facility] CNPN Telephone (INTMWS) LEYDA LOPEZ ([id number]) 1960 F Date Time Provider Department 05/18/24 VELVET PALACIO During your visit today, we recorded the following information about you: Ca Valenzuela, RICARDO 05/18/2024 3:32 PM Signed Dyana with [facility] calls to request refills for patient. Notified Dyana that patient needs to call to request refills as they are not listed as preferred pharmacy with verbalized understanding. Ca Valenzuela RN Allergies As of Date: 05/18/2024 Noted Allergy Reaction AMLODIPINE 06/13/2023 14 - Other: See Comments Comments: shaky and jittery ATIVAN (LORAZEPAM) 08/24/2014 1 - Mental Status Change 11 - Vomiting Comments: mood swings BACLOFEN 06/04/2014 1 - Mental Status Change Comments: angry,mood effect METHOTREXATE 12/20/2011 11 - Vomiting Comments: abdomen pain,vomiting, sbo NADOLOL 02/05/2013 5 - Intolerance Comments: body burning,tingly NEXIUM (ESOMEPRAZOLE MAGNESIUM) 07/15/2015 14 - Other: See Comments Comments: reflux-no relief PENICILLIN G 09/29/2012 8 - GI Upset Comments: patient reports these symptoms after medication was ordered PROPRANOLOL 01/30/2013 5 - Intolerance Comments: fatigue,sleepy Date Reviewed: 05/08/2024 Reviewed by: Cheri Valenzuela MA - Fully Assessed Reason for Visit: Refill Request [94] Prescriptions as of 05/18/2024 - ipratropium (ATROVENT) 0.02 % nebulizer solution Use 2.5 mL via nebulizer four times a day as needed for wheezing/shortness of breath. Use over 5-15minutes. Dx:J45.40 - Nebulizer Accessories kit 1 Each once daily. - Blood Pressure Monitor 1 Each as needed. - OXYGEN, HOME THERAPY, 2 L/min by Nasal Cannula route as directed. At night AND 5 L/min when mobile - predniSONE (DELTASONE) 20 mg tablet Please take the pill for 7 days followed by taking half the pill for another 7 days and stop. - tiZANidine (ZANAFLEX) 4 mg tablet Take 1 tablet by mouth every 8 hours as needed. - furosemide (LASIX) 40 mg tablet Take 1 tablet by mouth once daily. - lisinopril (ZESTRIL) 40 mg tablet Take 1 tablet by mouth once daily. - escitalopram oxalate (LEXAPRO) 20 mg tablet Take 1 tablet by mouth once daily. - busPIRone (BUSPAR) 10 mg tablet Take 1 tablet by mouth three times a day. - atorvastatin (LIPITOR) 40 mg tablet TAKE ONE TABLET BY MOUTH DAILY AT 9PM AT BEDTIME - amitriptyline 150 mg tablet Take 1 tablet by mouth daily at bedtime. - SUMAtriptan (IMITREX) 50 mg tablet Take 1 tablet (50 mg) by mouth as needed for migraine headache (see administration instructions). START AT ONSET OF HEADACHE. MAY REPEAT DOSE AFTER 2 HOURS. - pregabalin (LYRICA) 150 mg capsule Take 1 capsule by mouth two times a day for 90 days. - hydrOXYzine HCl (ATARAX) 50 mg tablet Take 1 tablet by mouth every 8 hours as needed for anxiety. - loperamide (IMODIUM) 2 mg cap(s) Take 1 capsule by mouth three times a day as needed. - meloxicam (MOBIC) 15 mg tablet Take 1 tablet by mouth once daily. - traZODone (DESYREL) 50 mg tablet Take 1 tablet by mouth daily at bedtime. - ondansetron orally disintegrating (ZOFRAN ODT) 4 mg disintegrating tablet Take 1 tablet by mouth every 8 hours as needed. - fluticasone-salmeterol (ADVAIR, WIXELA) 250-50 mcg/dose inhaler INHALE 1 PUFF BY MOUTH DIRECTED TWICE DAILY - potassium chloride ER (KLOR-CON) 20 mEq tablet Take 1 tablet by mouth once daily. - albuterol HFA (PROAIR HFA) 90 mcg/actuation inhaler Inhale 2 Puffs as instructed. - nitroglycerin sublingual (NITROQUICK) 0.4 mg SL tablet Dissolve 0.4 mg under the tongue every 5 minutes as needed for chest pain. - acetaminophen 325 mg cap Take by mouth. - Dexlansoprazole (DEXILANT) 60 mg CpDM TAKE ONE CAPSULE BY MOUTH DAILY AT 9AM - hyoscyamine sublingual (LEVSIN SL) 0.125 mg Dissolve 1 tablet under the tongue three times daily as needed. - Cholecalciferol, Vitamin D3, 2,000 unit tab Take 2 tablets by mouth once daily. Meds Comments as of 07/05/2023: Patient is not sure what antibiotic she was place on in hospital Problem List As Of Date 05/18/2024 Noted Resolved Essential hypertension [I10] 03/22/2005 Moderate episode of recurrent major depressive *03/22/2005 PANIC DISORDER WITHOUT AGORAPHOBIA [F41.0] 03/22/2005 Asthma [J45.909] 03/22/2005 Hyperlipidemia [E78.5] ANEMIA BLOOD LOSS CHRONIC [D50.0] 12/23/2007 12/01/2013 BONE AND CARTILAGE DIS NOS [M89.9, M94.9] 02/09/2008 CRI (chronic renal insufficiency) (HCC) [N18.9] 09/30/2009 12/01/2013 Bipolar affective [F31.9] 04/27/2010 05/21/2018 COPD (chronic obstructive pulmonary disease) [J*10/04/2010 Hypokalemia [E87.6] 10/04/2010 12/01/2013 Left Plantar fasciitis [M72.2] 10/04/2010 12/01/2013 GERD (gastroesophageal reflux disease) [K21.9] 10/25/2010 Dysphagia [R13.10] 10/25/2010 12/01/2013 Calcaneal spur [M77.30] 01/08/2011 Chronic pain [G89.29] 02 (more content not included)... Normal [facility] CNCOon 05-12-2024 CNCO Letter Text Normal [facility] CNPNon 05-12-2024 CNPN Telephone (INTMWS) LEYDA LOPEZ ([id number]) 1960 F Date Time Provider Department 05/12/24 VELVET PALACIO INTGeoffreyWS During your visit today, we recorded the following information about you: Geoffrey Barboza, RN 05/12/2024 2:44 PM Signed Pt phoned to report she just got off the phone with [employer]. Reports they cancelled her insurance. Reports the nurse in Dr. Palacio's office needs to call [facility] at [phone] and let them know she does have history of CHF, in order to get her insurance back. This nurse phoned the number patient gave and spoke to a traffic workforce representative. Informed traffic workforce representative patient does have hx of CHF. [employer] Specialist states patient's insurance was terminated on 05-01-24 so this information is no longer needed. Advised traffic workforce representative patient just spoke to someone at [facility] who told her if doctors office calls to verify patient has CHF, they would reinstate patient's insurance. [employer] Specialist took the information. Notified patient information was given to [facility]. Allergies As of Date: 05/12/2024 Noted Allergy Reaction AMLODIPINE 06/13/2023 14 - Other: See Comments Comments: shaky and jittery ATIVAN (LORAZEPAM) 08/24/2014 1 - Mental Status Change 11 - Vomiting Comments: mood swings BACLOFEN 06/04/2014 1 - Mental Status Change Comments: angry,mood effect METHOTREXATE 12/20/2011 11 - Vomiting Comments: abdomen pain,vomiting, sbo NADOLOL 02/05/2013 5 - Intolerance Comments: body burning,tingly NEXIUM (ESOMEPRAZOLE MAGNESIUM) 07/15/2015 14 - Other: See Comments Comments: reflux-no relief PENICILLIN G 09/29/2012 8 - GI Upset Comments: patient reports these symptoms after medication was ordered PROPRANOLOL 01/30/2013 5 - Intolerance Comments: fatigue,sleepy Date Reviewed: 05/08/2024 Reviewed by: Cheri Valenzuela MA - Fully Assessed Reason for Visit: [facility] - request from patient. [Other] Prescriptions as of 05/12/2024 - ipratropium (ATROVENT) 0.02 % nebulizer solution Use 2.5 mL via nebulizer four times a day as needed for wheezing/shortness of breath. Use over 5-15minutes. Dx:J45.40 - Nebulizer Accessories kit 1 Each once daily. - Blood Pressure Monitor 1 Each as needed. - OXYGEN, HOME THERAPY, 2 L/min by Nasal Cannula route as directed. At night AND 5 L/min when mobile - predniSONE (DELTASONE) 20 mg tablet Please take the pill for 7 days followed by taking half the pill for another 7 days and stop. - tiZANidine (ZANAFLEX) 4 mg tablet Take 1 tablet by mouth every 8 hours as needed. - furosemide (LASIX) 40 mg tablet Take 1 tablet by mouth once daily. - lisinopril (ZESTRIL) 40 mg tablet Take 1 tablet by mouth once daily. - escitalopram oxalate (LEXAPRO) 20 mg tablet Take 1 tablet by mouth once daily. - busPIRone (BUSPAR) 10 mg tablet Take 1 tablet by mouth three times a day. - atorvastatin (LIPITOR) 40 mg tablet TAKE ONE TABLET BY MOUTH DAILY AT 9PM AT BEDTIME - amitriptyline 150 mg tablet Take 1 tablet by mouth daily at bedtime. - SUMAtriptan (IMITREX) 50 mg tablet Take 1 tablet (50 mg) by mouth as needed for migraine headache (see administration instructions). START AT ONSET OF HEADACHE. MAY REPEAT DOSE AFTER 2 HOURS. - pregabalin (LYRICA) 150 mg capsule Take 1 capsule by mouth two times a day for 90 days. - hydrOXYzine HCl (ATARAX) 50 mg tablet Take 1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 Auto (Bld) [Volum e fraction]Ordered By: Trey Joe on 05-02-2024 Hematocrit (Bld) [Volume fraction] 32.5 % Low 37-47 [facility] Hemoglobin measurementOrdere d By: Trey Joe on 05-02-2024 Hemoglobin (Bld) [Mass/Vol] 10.8 g/dL Low 12.0-15.0 [facility] Immature granulocytes/100 WB C Auto (Bld)Ordered By: Trey Joe on 05-02-2024 Immature granulocytes/100 WBC (Bld) 0.900 % 0.0-0.9 [facility] Comment on above: IG% - Immature Granu locytes (promyelocytes, myelocytes and metamyelocytes) > 1% indicates that a LEFT SHIFT is Present. MCV (mean corpuscular volume ) determinationOrdered By: Trey Joe on 05-02-2024 MCV (RBC) [Entitic vol] 89.3 fL 81-99 [facility] Mean corpuscular hemoglobin (MCH) determinationOrdered By: Trey Joe on 05-02-2024 MCH (RBC) [Entitic mass] 29.7 pg 27.0-32.0 [facility] Mean corpuscular hemoglobin concentration (MCHC) determinationOrdered By: Trey Joe on 05-02-2024 MCHC (RBC) [Mass/Vol] 33.2 g/dL 32-36 [facility] Mean platelet volume determi nationOrdered By: Trey Joe on 05-02-2024 Platelet mean volume (Bld) [Entitic vol] 10.2 fL 6.2-12.0 [facility] Microbial respiratory cultur eOrdered By: Trey Joe on 05-02-2024 Microorganism identified Cx Nom (Unsp spec) Meth. resistant Staph. aureus Abnormal [facility] Microorganism identified Cx Nom (Unsp spec) Presumptive C albicans Abnormal [facility] Monocyte percentageOrdered B y: Trey Joe on 05-02-2024 Monocytes/100 WBC (Bld) 5.5 % 0-10 [facility] Neutrophil percentageOrdered By: Trey Joe on 05-02-2024 Neutrophils/100 WBC (Bld) 83.1 % High 47-70 [facility] Nucleated red blood cell per centageOrdered By: Trey Joe on 05-02-2024 Nucleated RBC/100 WBC (Bld) [Ratio] 0 % 0-5 [facility] Platelet countOrdered By: Jonathan Joe on 05-02-2024 Platelets (Bld) [#/Vol] 285 10*3/uL 150-450 [facility] RBC Auto (Bld) [#/Vol]Ordere d By: Trey Joe on 05-02-2024 RBC (Bld) [#/Vol] 3.64 10*6/uL Low 4.2-5.4 [facility] Serum creatinine measurement (mass/volume)Ordered By: Trey Joe on 05-02-2024 Creatinine [Mass/Vol] 0.98 mg/dL 0.70-1.20 [facility] Serum glucose measurement (m ass/volume)Ordered By: Trey Joe on 05-02-2024 Glucose [Mass/Vol] 137 mg/dL High 70-99 [facility] Serum or plasma anion gap de termination (moles/volume)Ordered By: Trey Joe on 05-02-2024 Anion gap [Moles/Vol] 14 mmol/L 5-15 [facility] Serum or plasma calcium melo urement (mass/volume)Ordered By: Trey Joe on 05-02-2024 Calcium [Mass/Vol] 9.1 mg/dL 7.6-11.0 [facility] Serum or plasma potassium me asurementOrdered By: Trey Joe on 05-02-2024 Potassium [Moles/Vol] 4.4 mmol/L 3.3-5.1 [facility] Serum or plasma sodium measu rement (moles/volume)Ordered By: Trey Joe on 05-02-2024 Sodium [Moles/Vol] 144 mmol/L 133-145 [facility] Serum or plasma urea nitroge n measurement (mass/volume)Ordered By: Trey Joe on 05-02-2024 Urea nitrogen [Mass/Vol] 27 mg/dL High 4-19 [facility] White blood cell (WBC) count Ordered By: Trey Joe on 05-02-2024 WBC (Bld) [#/Vol] 11.3 10*3/uL High 4.4-11.0 [facility] 12 Lead EKGon 05-01-2024 12 Lead EKG [facility] Cardiovascular Services [address] [place] [address] 12 Lead EKG 05/01/24 1131 MR#: [id number] Acct: [id number] Name: LEYDA LOPEZ Rep #: [id number] : 1960 63 From: Fareed Maxwell MD Attending Dr: Dr. Himanshu Aldana MD Status: DI S IN Ordering Dr: Anival Mejía DO Date: 05/01/24 Location: [facility] Sex: F C Admitted: 05/01/24 Test Reason : Blood Pressure : */* mmHG Vent. Rate : 83 BPM Atrial Rate : 83 BPM P-R Int : 136 ms QRS Dur : 82 ms QT Int : 408 ms P-R-T Axes : 45 47 69 degrees QTcB Int : 479 ms Normal sinus rhythm Normal ECG Confirmed by Fareed Maxwell ([id number]), senior editor GUSTAVO VICENTE ([id number]) on 05/04/2024 10:46:58 AM Referred By: SALONI Confirmed By: Fareed Maxwell 05/04/24 1046 Date Fareed Maxwell MD CC: CARPET BINDERGabriella RICE; Dr. Himanshu Aldana MD; Dr. Anival Mejía DO Signed Normal [facility] Basic Metabolic Profile (BMP )on 05-01-2024 Anion gap [Moles/Vol] 10 mmol/L Normal 5-15 [facility] Comment on above: Performed By: #### L 500.2500, L100.0100, L501.4021, L503.9392 #### [facility] [address] [place], [address] BUN/CRE 23.0 RATIO High 10-20 [facility] Comment on above: Performed By: #### L 500.2500, L100.0100, L501.4021, L503.7505 #### [facility] [address] [place], [address] Calcium [Mass/Vol] 8.8 mg/dL Normal 7.6-11.0 [facility] Comment on above: Performed By: #### L 500.2500, L100.0100, L501.4021, L503.7505 #### [facility] [address] [place], [address] Chloride [Moles/Vol] 104 mmol/L Normal 96-108 [facility] Comment on above: Performed By: #### L 500.2500, L100.0100, L501.4021, L503.7505 #### [facility] [address] [place], [address] CO2 [Moles/Vol] 25.5 mmol/L Normal 22.0-29.0 [facility] Comment on above: Performed By: #### L 500.2500, L100.0100, L501.4021, L503.7505 #### [facility] [address] [place], [address] Creatinine [Mass/Vol] 1.10 mg/dL Normal 0.70-1.20 [facility] Comment on above: Performed By: #### L 500.2500, L100.0100, L501.4021, L503.7505 #### [facility] [address] [place], [address] ECRCL 44.48 ml/min Normal [facility] Comment on above: Performed By: #### L 500.2500, L100.0100, L501.4021, L503.7505 #### [facility] [address] [place], [address] GFR/1.73 sq M.predicted among non-blacks MDRD (S/P/Bld) [Vol rate/Area] 56 mL/min/{1.73_m2} Low >60 [facility] Comment on above: Result Comment: mL/m in/1.73m2 CKD-EPI Creatinine Equation (2020) Performed By: #### L 500.2500, L100.0100, L501.4021, L503.7505 #### [facility] [address] [place], [address] Glucose [Mass/Vol] 149 mg/dL High 70-99 [facility] Comment on above: Performed By: #### L 500.2500, L100.0100, L501.4021, L503.7505 #### [facility] [address] [place], [address] Potassium [Moles/Vol] 3.7 mmol/L Normal 3.3-5.1 [facility] Comment on above: Performed By: #### L 500.2500, L100.0100, L501.4021, L503.7505 #### [facility] [address] [place], [address] Sodium [Moles/Vol] 140 mmol/L Normal 133-145 [facility] Comment on above: Performed By: #### L 500.2500, L100.0100, L501.4021, L503.7505 #### [facility] [address] [place], [address] Urea nitrogen [Mass/Vol] 25 mg/dL High 4-19 [facility] Comment on above: Performed By: #### L 500.2500, L100.0100, L501.4021, L503.7505 #### [facility] [address] [place], [address] CBC W/Diff, Automatedon 04-05 Absolute Lymph 2.65 X10 3/uL Normal 0.83-4.51 [facility] Comment on above: Performed By: #### L 500.2500, L100.0100, L501.4021, L503.7505 #### [facility] [address] [place], [address] Absolute Neut 7.8 X10 3/uL High 2.0-7.7 [facility] Comment on above: Performed By: #### L 500.2500, L100.0100, L501.4021, L503.7505 #### [facility] [address] [place], [address] Basophils/100 WBC (Bld) 0.5 % Normal 0-1 [facility] Comment on above: Performed By: #### L 500.2500, L100.0100, L501.4021, L503.7505 #### [facility] [address] [place], [address] Eosinophils/100 WBC (Bld) 3.6 % Normal 0-5 [facility] Comment on above: Performed By: #### L 500.2500, L100.0100, L501.4021, L503.7505 #### [facility] [address] [place], [address] Erythrocyte distribution width (RBC) [Ratio] 13.8 % Normal 11.6-14.6 [facility] Comment on above: Performed By: #### L 500.2500, L100.0100, L501.4021, L503.7505 #### [facility] [address] [place], [address] Hematocrit (Bld) [Volume fraction] 38.0 % Normal 37-47 [facility] Comment on above: Performed By: #### L 500.2500, L100.0100, L501.4021, L503.7505 #### [facility] [address] [place], [address] Hemoglobin (Bld) [Mass/Vol] 12.4 g/dL Normal 12.0-15.0 [facility] Comment on above: Performed By: #### L 500.2500, L100.0100, L501.4021, L503.7505 #### [facility] [address] [place], [address] IG% 0.400 Normal 0.0-0.9 [facility] Comment on above: Result Comment: IG% - Immature Granulocytes (promyelocytes, myelocytes and metamyelocytes) > 1% indicates that a LEFT SHIFT is Present. Performed By: #### L 500.2500, L100.0100, L501.4021, L503.7505 #### [facility] [address] [place], [address] Lymphocytes/100 WBC (Bld) 23.0 % Normal 19-41 [facility] Comment on above: Performed By: #### L 500.2500, L100.0100, L501.4021, L503.7505 #### [facility] [address] [place], [address] MCH (RBC) [Entitic mass] 30.0 pg Normal 27.0-32.0 [facility] Comment on above: Performed By: #### L 500.2500, L100.0100, L501.4021, L503.7505 #### [facility] [address] [place], [address] MCHC (RBC) [Mass/Vol] 32.6 g/dL Normal 32-36 [facility] Comment on above: Performed By: #### L 500.2500, L100.0100, L501.4021, L503.7505 #### [facility] [address] [place], [address] MCV (RBC) [Entitic vol] 92.0 fL Normal 81-99 [facility] Comment on above: Performed By: #### L 500.2500, L100.0100, L501.4021, L503.7505 #### [facility] [address] [place], [address] Monocytes/100 WBC (Bld) 4.9 % Normal 0-10 [facility] Comment on above: Performed By: #### L 500.2500, L100.0100, L501.4021, L503.7505 #### [facility] [address] [place], [address] Neutrophils/100 WBC (Bld) 67.6 % Normal 47-70 [facility] Comment on above: Performed By: #### L 500.2500, L100.0100, L501.4021, L503.7505 #### [facility] [address] [place], [address] Nucleated RBC (Bld) [#/Vol] 0 10*3/uL Normal 0-5 [facility] Comment on above: Performed By: #### L 500.2500, L100.0100, L501.4021, L503.7505 #### [facility] [address] [place], [address] Platelet mean volume (Bld) [Entitic vol] 9.8 fL Normal 6.2-12.0 [facility] Comment on above: Performed By: #### L 500.2500, L100.0100, L501.4021, L503.7505 #### [facility] [address] [place], [address] Platelets (Bld) [#/Vol] 287 10*3/uL Normal 150-450 [facility] Comment on above: Performed By: #### L 500.2500, L100.0100, L501.4021, L503.7505 #### [facility] [address] [place], [address] RBC (Bld) [#/Vol] 4.13 10*6/uL Low 4.2-5.4 [facility] Comment on above: Performed By: #### L 500.2500, L100.0100, L501.4021, L503.7505 #### [facility] [address] [place], [address] RDW SD 46.6 fl High 35.1-43.9 [facility] Comment on above: Performed By: #### L 500.2500, L100.0100, L501.4021, L503.7505 #### [facility] [address] [place], [address] WBC (Bld) [#/Vol] 11.5 10*3/uL High 4.4-11.0 [facility] Comment on above: Performed By: #### L 500.2500, L100.0100, L501.4021, L503.7505 #### [facility] [address] [place], [address] Chest PA and Lateralon 05-01 Chest PA and Lateral [facility] Imaging Services [address] [place] [address] Chest PA and Lateral MR#: [id number] Acct: [id number] Name: LEYDA LOPEZ Rep #: [id number] : 1960 F 63 From: Trey Pichardo MD PCP: DALI RICE, CARPET BINDER-C Status: [facility] ER Study: Chest PA and Lateral Date of Exam: 05/01/24 Exam# [id number] Ordering Dr: Anival Mejía DO PROCEDURE: CHEST PA AND LATERAL REASON FOR EXAM: Worsening dyspnea. Abdominal swelling TECHNIQUE: Frontal and lateral views of the chest. COMPARISON: Chest dated 06/04/2023. FINDINGS: Lungs: Atelectasis and/or early infiltrate in the lower lobes. Pleura: No pleural effusions or pneumothorax. Heart: Mild cardiac enlargement. Mediastinum/Madelyn: Unremarkable. Great vessels: Atherosclerotic and tortuous aorta. Bones/soft tissues: Exaggerated kyphosis, mid to lower thoracic spine. RAD/Chest PA and Lateral IMPRESSION: Atelectasis and/or infiltrate in the lower lobes. Mild cardiac enlargement. Exaggerated kyphosis. Reading Location: [place] [address] CC: CARPET BINDERGabriella RICE; Dr. Anival Mejía DO Regulatory Intern: Signed Normal [facility] Emergency Department Summary on 05-01-2024 Emergency Department Summary [facility] Medical Records Department [address] [place] [address] Emergency Department Summary 05/01/24 MR#: [id number] Acct: [id number] Name: LEYDA LOPEZ Rep #: [id number] : 1960 63 From: Anvial Mejía DO PCP: SHMUEL PAGAN Status:REG ER Location: ED HPI History of Present Illness Chief Complaint: Shortness of Breath Narrative Narrative: Patient is a 63-year-old female past medical history of CHF, anxiety, depression, COPD chronically on 4 L nasal cannula, bipolar disorder, hypertension who presented to the emergency department with a chief complaint of shortness of breath. According to EMS she was hypoxic in the mid 80s on room air. According to them she has not been able to afford to pay her home health bill therefore they have not delivered oxygen and she has been off her oxygen for several days. Patient states that she woke up this morning could not breathe prompting her to call EMS to have her brought here for the valuation management. Patient states that the breathing treatment that EMS provided her did seem to help. Patient denies any recent steroid use. [facility] Medical History CHF (congestive heart failure) Anxiety Depression Kidney disease GERD (gastroesophageal reflux disease) Former smoker On home oxygen therapy Irregular heart beat Myocardial infarct Migraines Fibromyalgia NSTEMI (non-ST elevated myocardial infarction) Hypertension Rheumatoid arthritis Bipolar 1 disorder COPD (chronic obstructive pulmonary disease) COPD (chronic obstructive pulmonary disease) Home Medications ???Medication ???Instructions ???Recorded ???Last Taken ???Type albuterol sulfate 90 mcg/actuation 2 puff inhalation Q4H PRN PRN So b 07/26/14 06/06/17 History aerosol inhaler (ProAir HFA) /Or Wheezing nitroglycerin 0.4 mg sublingual 0.4 mg sublingual PRN PRN CHEST Unknown History tablet PAIN amitriptyline 100 mg tablet 100 mg PO QHS depresssion 10/10/22 Unknown History meloxicam 7.5 mg tablet 7.5 mg PO DAILY pain 10/10/22 Unkn own History sumatriptan succinate 50 mg tablet 50 mg PO PRN PRN migraine headac he 10/10/22 Unknown History ondansetron 4 mg disintegrating 4 mg PO Q8H PRN PRN Nausea #14 tab s 11/14/22 Unknown Rx tablet atorvastatin 40 mg tablet 40 mg PO QHS Cholesterol 05/11/23 Unknown History buspirone 5 mg tablet 5 mg PO TID Anxiety 05/11/23 Unkno wn History dexlansoprazole 60 mg 60 mg PO DAILY GERD 05/11/23 Unkno wn History capsule,biphase delayed release escitalopram oxalate 20 mg tablet 20 mg PO DAILY depression 4 Unknown History fluticasone propionate 50 2 spray intranasal DAILY allergies 05/11/23 Unknown History mcg/actuation nasal spray,suspension hydroxyzine HCl 50 mg tablet 50 mg PO TID PRN Anxiety 05/11/23 Unknown History pregabalin 25 mg capsule 25 mg PO BID Nerve pain 05/11/23 U nknown History tizanidine 4 mg tablet 4 mg PO QHS PRN PRN muscle spasm 0 05/11/23 Unknown History acetaminophen 325 mg tablet 1,000 mg (3.0769 x 325 mg) PO Q8H 05/20/23 Unknown Rx PRN PRN fever/pain 1-10 #0 tabs lisinopril 40 mg tablet 40 mg PO DAILY blood pressure 04/27 Unknown History furosemide 40 mg tablet 40 mg PO BIDCM water pill #120 tab s 06/06/23 Unknown Rx guaifenesin 1,200 mg tablet, 1,200 mg PO BID #20 tabs 06/06/23 Unknown Rx extended release 12 hr (Mucus Relief ER) potassium chloride 20 mEq 20 meq PO DAILYCM #30 tabs 4 Unknown Rx tablet,extended release(part/cryst) prednisone 20 mg tablet 20 mg PO BID #14 tabs 06/06/23 Unk nown Rx oxycodone-acetaminophen 5 mg-325 1 tab PO Q6H PRN pain 3 days #12 0 09/27/23 Unknown Rx mg tablet (Percocet) tabs sulfamethoxazole 800 1 tab PO BID #14 TABLETS 09/27/23 Unknown Rx mg-trimethoprim 160 mg tablet Allergy/AdvReac Type Severity Reaction Status Date / Time methotrexate Allergy Other Verified 05/01/24 11:10 nadolol Allergy Unknown Verified 05/01/24 11:10 prochlorperazine Allergy PT UNABLE Verified 05/01/24 11:10 TO RESPOND-NEEDS F/U baclofen AdvReac Other Verified 05/01/24 11:10 lorazepam (From Ativan) AdvReac Nausea Verified 05/01/24 11:10 propranolol AdvReac Other Verified 05/01/24 11:10 Social History Smoking Status: Former smoker ROS ROS ED ROS Narrative Constitutional: Denies fevers, chills, headaches, lightness, dizziness Eyes: Denies change in vision double vision blurry vision Cardiovascular: Denies chest pain palpitations Respiratory: Complains of cough and shortness of breath as noted above Abdomen: Denies abdominal pain nausea vomit diarrhea : Denies urinary symptoms Neurological: Denies numbness, weakne (more content not included)... Normal [facility] H AND P Exam - Hospitaliston 05-01-2024 H&P Exam - Hospitalist [facility] Medical Records Department [address] [place] [address] H P Exam - Hospitalist 05/01/24 1649 MR#: [id number] Acct: [id number] Name: LEYDA LOPEZ Rep #: [id number] : 1960 63 From: Trey Joe DO PCP: DALI RICE, CARPET BINDER-C Status:ADM IN Location: [facility] [id number] HPI - General General Date of Service: 05/01/24 Chief Complaint: Shortness of breath HPI Narrative LEYDA LOPEZ, is a 63 F who presents with shortness of breath. Patient is home O2 dependent but is recently ran out of her oxygen and has been living without it. Just has gotten so short of breath so she presented to the emergency room here. She had a chest x-ray that is concerning for some infiltrates so she received antibiotics with ceftriaxone and azithromycin, methylprednisolone and bronchodilators. Additionally she received 40 mg of IV furosemide. Patient also complaining of a headache and did receive a dose of 50 mg of ketorolac. Patient denies any fever chills nor cough. [facility] Medical History (Updated 05/01/24 @ 16:[address] Trey Joe, DO) CHF (congestive heart failure) Anxiety Depression Kidney disease GERD (gastroesophageal reflux disease) Former smoker On home oxygen therapy Irregular heart beat Myocardial infarct Migraines Fibromyalgia NSTEMI (non-ST elevated myocardial infarction) Hypertension Rheumatoid arthritis Bipolar 1 disorder COPD (chronic obstructive pulmonary disease) COPD (chronic obstructive pulmonary disease) Home Medications ???Medication ???Instructions ???Recorded ???Last Taken ???Type albuterol sulfate 90 mcg/actuation 2 puff inhalation Q4H PRN PRN So b 07/26/14 06/06/17 History aerosol inhaler (ProAir HFA) /Or Wheezing nitroglycerin 0.4 mg sublingual 0.4 mg sublingual PRN PRN CHEST Unknown History tablet PAIN amitriptyline 100 mg tablet 100 mg PO QHS depresssion 10/10/22 Unknown History meloxicam 7.5 mg tablet 7.5 mg PO DAILY pain 10/10/22 Unkn own History sumatriptan succinate 50 mg tablet 50 mg PO PRN PRN migraine headac he 10/10/22 Unknown History ondansetron 4 mg disintegrating 4 mg PO Q8H PRN PRN Nausea #14 tab s 11/14/22 Unknown Rx tablet atorvastatin 40 mg tablet 40 mg PO QHS Cholesterol 05/11/23 Unknown History buspirone 5 mg tablet 5 mg PO TID Anxiety 05/11/23 Unkno wn History dexlansoprazole 60 mg 60 mg PO DAILY GERD 05/11/23 Unkno wn History capsule,biphase delayed release escitalopram oxalate 20 mg tablet 20 mg PO DAILY depression 4 Unknown History fluticasone propionate 50 2 spray intranasal DAILY allergies 05/11/23 Unknown History mcg/actuation nasal spray,suspension hydroxyzine HCl 50 mg tablet 50 mg PO TID PRN Anxiety 05/11/23 Unknown History pregabalin 25 mg capsule 25 mg PO BID Nerve pain 05/11/23 U nknown History tizanidine 4 mg tablet 4 mg PO QHS PRN PRN muscle spasm 0 05/11/23 Unknown History acetaminophen 325 mg tablet 1,000 mg (3.0769 x 325 mg) PO Q8H 05/20/23 Unknown Rx PRN PRN fever/pain 1-10 #0 tabs lisinopril 40 mg tablet 40 mg PO DAILY blood pressure 04/27 Unknown History furosemide 40 mg tablet 40 mg PO BIDCM water pill #120 tab s 06/06/23 Unknown Rx guaifenesin 1,200 mg tablet, 1,200 mg PO BID #20 tabs 06/06/23 Unknown Rx extended release 12 hr (Mucus Relief ER) potassium chloride 20 mEq 20 meq PO DAILYCM #30 tabs 4 Unknown Rx tablet,extended release(part/cryst) prednisone 20 mg tablet 20 mg PO BID #14 tabs 06/06/23 Unk nown Rx oxycodone-acetaminophen 5 mg-325 1 tab PO Q6H PRN pain 3 days #12 0 09/27/23 Unknown Rx mg tablet (Percocet) tabs sulfamethoxazole 800 1 tab PO BID #14 TABLETS 09/27/23 Unknown Rx mg-trimethoprim 160 mg tablet Allergy/AdvReac Type Severity Reaction Status Date / Time methotrexate Allergy Other Verified 05/01/24 11:10 nadolol Allergy Unknown Verified 05/01/24 11:10 prochlorperazine Allergy PT UNABLE Verified 05/01/24 11:10 TO RESPOND-NEEDS F/U baclofen AdvReac Other Verified 05/01/24 11:10 lorazepam (From Ativan) AdvReac Nausea Verified 05/01/24 11:10 propranolol AdvReac Other Verified 05/01/24 11:10 Family History (Updated 05/01/24 @ 16:[address] Trey Joe DO) Other COPD (chronic obstructive pulmonary disease) Social History (Updated 05/01/24 @ 16:[address] Trey Joe DO) Smoking Status: Former smoker substance use type: marijuana ROS ROS Narrative All review of systems were negative except as mentioned above in the history of present illness and the other review of systems. Vital Signs Vital Signs Vital Signs: 05/01/24 11:05 05/01/24 11:21 05/01/24 11:26 Temperature 36.8 C Temperature Source Oral Pulse Rate 87 Respiratory Rate 15 Respiratory Effort Short of Breat (more content not included)... Normal [facility] Influenza virus A and B and SARS-CoV-2 (COVID-19) and Respiratory syncytial virus RNAOrdered By: Trey Joe on 05-01-2024 SARS-CoV-2 (COVID-19) RNA RICK+probe Ql (Unsp spec) [facility] L499.0042on 05-01-2024 Trop T Delta 16 Normal [facility] Comment on above: Performed By: #### L 499.0042 ####[facility] [address] [place], [address] Trop T High Sen 29 ng/L High <=14 [facility] Comment on above: Performed By: #### L 499.0042 ####[facility] [address] [place], [address] L499.0043on 05-01-2024 Trop T Delta 22 Normal [facility] Comment on above: Performed By: #### L 500.2500, L100.0100, L501.4021, L503.7505 #### [facility] [address] [place], [address] Trop T High Sen 36 ng/L High <=14 [facility] Comment on above: Performed By: #### L 500.2500, L100.0100, L501.4021, L503.7505 #### [facility] [address] [place], [address] L501.4021on 05-01-2024 Trop T High Sen 14 ng/L Normal <=14 [facility] Comment on above: Performed By: #### L 500.2500, L100.0100, L501.4021, L503.7505 #### [facility] [address] [place], [address] L503.7505on 05-01-2024 Natriuretic peptide B (Bld) [Mass/Vol] 712 pg/mL Normal <=900 [facility] Comment on above: Result Comment: Hear t Failure Unlikely: < 300 pg/mL Heart Failure Likely < 50 Years: > 450 pg/mL 50-75 Years: > 900 pg/mL >75 Years: > 1800 pg/mL Performed By: #### L 500.2500, L100.0100, L501.4021, L503.7505 #### [facility] [address] [place], [place], [id number] Laboratory - Chemistry and C hemistry - challengeOrdered By: Anival Mejía on 05-01-2024 Natriuretic peptide B (Bld) [Mass/Vol] 712 pg/mL <900 [facility] Comment on above: Heart Failure Unlike ly: < 300 pg/mLHeart Failure Likely< 50 Years: > 450 pg/mL50-75 Years: > 900 pg/mL>75 Years: > 1800 pg/mL Legionella Antigen Urineon 0 05-01-2024 LEGU Comments: Only Recom mended for severe cases of pneumonia Only Recommended for severe cases of pneumonia URINE, RANDOM Legionella Antigen result interpretation: L pneumo Ag Ur Ql Negative Presumptive negative for Legionella pneumophila serogroup 1 antigen in urine, suggesting no recent or current infection. Legionella Ag, Urine Negative (See interpretation below) Normal [facility] Comment on above: Performed By: #### L 500.2500, L100.0100, L501.4021, L503.7505 #### [facility] [address] [place], [place], [id number] M100.678on 05-01-2024 M100.678 SARS-CoV-2 (COVID 19 ) Negative INFLUENZA A Negative INFLUENZA B Negative RSV PCR Negative Normal [facility] Comment on above: Performed By: #### M 100.678 ####[facility] [address] [place], [place], [id number] No Panel InformationOrdered By: Anival Mejía on 05-01-2024 Troponin T Hi Sensitivity 4Hr Delta 22 [facility] Troponin T Hi Sensitivity 2Hr Delta 16 [facility] Troponin T High Sensitivity 14 ng/L <14 [facility] Strep pneumoniae Antig(UR,CS F)on 05-01-2024 STPAG Comments: Only Recom mended for severe cases of pneumonia Strep pneumoniae Antig(UR,CSF) [] Negative Urine Presumptive negative for pneumococcal pneumonia, suggesting no current or recent pneumococcal infection. Infection due to S pneumoniae cannot be ruled out since the antigen present in the sample may be below the detection limit of the test. Strep pneumo Test Negative URINE (See interpretation below) Normal [facility] Comment on above: Performed By: #### L 500.2500, L100.0100, L501.4021, L503.7505 #### [facility] [address] [place], [place], [id number] Troponin T.cardiac [Mass/vol ume] in Serum or Plasma by High sensitivity methodOrdered By: Anival Mejía on 05-01-2024 Troponin T.cardiac High sensitivity method [Mass/Vol] 36 ng/L High <14 [facility] Troponin T.cardiac High sensitivity method [Mass/Vol] 29 ng/L High <14 [facility] Urine Legionella pneumophila antigen detectionOrdered By: Trey Joe on 05-01-2024 L. pneumophila Ag Ql (U) [facility] LE[facility]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 - atorvastatin (LIPITOR) 40 mg tablet TAKE ONE TABLET BY MOUTH DAILY AT 9PM AT BEDTIME - furosemide (LASIX) 40 mg tablet TAKE ONE TABLET BY MOUTH DAILY AT 9AM Strength: 40 mg - traZODone (DESYREL) 50 mg tablet Take 1 tablet by mouth daily at bedtime. - hydrOXYzine HCl (ATARAX) 50 mg tablet Take 1 tablet by mouth every 8 hours as needed for anxiety. - escitalopram oxalate (LEXAPRO) 20 mg tablet Take 1 tablet by mouth once daily. - albuterol HFA (PROAIR HFA) 90 mcg/actuation inhaler Inhale 2 Puffs as instructed. - nitroglycerin sublingual (NITROQUICK) 0.4 mg SL tablet Dissolve 0.4 mg under the tongue every 5 minutes as needed for chest pain. - acetaminophen 325 mg cap Take by mouth. - Dexlansoprazole (DEXILANT) 60 mg CpDM TAKE ONE CAPSULE BY MOUTH DAILY AT 9AM - fluticasone (FLONASE) 50 mcg/actuation nasal spray INSTILL 2 SPRAYS IN EACH NOSTRIL DAILY RINSE MOUTH AFTER USE (BULK) - hyoscyamine sublingual (LEVSIN SL) 0.125 mg Dissolve 1 tablet under the tongue three times daily as needed. - ipratropium (ATROVENT) 0.02 % nebulizer solution Use 2.5 mL via nebulizer four times daily as needed for Wheezing/Shortness of Breath. Use over 5-15minutes. Dx:J45.40 - Cholecalciferol, Vitamin D3, 2,000 unit tab Take 2 tablets by mouth once daily. Meds Comments as of 07/05/2023: Patient is not sure what antibiotic she was place on in hospital Problem List As Of Date 02/28/2024 Noted Resolved Essential hypertension [I10] 03/22/2005 Moderate episode of recurrent major depressive *03/22/2005 PANIC DISORDER WITHOUT AGORAPHOBIA [F41.0] 03/22/2005 Asthma [J45.909] 03/22/2005 Hyperlipidemia [E78.5] ANEMIA BLOOD LOSS CHRONIC [D50.0] 12/23/2007 12/01/2013 BONE AND CARTILAGE DIS NOS [M89.9, M94.9] 02/09/2008 CRI (chronic renal insufficiency) (HCC) [N18.9] 09/30/2009 12/01/2013 Bipolar affective [F31.9] 04/27/2010 05/21/2018 COPD (chronic obstructive pulmonary disease) [J*10/04/2010 Hypokalemia [E87.6] 10/04/2010 12/01/2013 Left Plantar fasciitis [M72.2] 10/04/2010 12/01/2013 GERD (gastroesophageal reflux disease) [K21.9] 10/25/2010 Dysphagia [R13.10] 10/25/2010 12/01/2013 Calcaneal spur [M77.30] 01/08/2011 (more content not included)... Normal [facility] Additional Injections: Velia Her 02-10-2024 Sebas Molina MD 02/10/2024 12:35 PM Additional Injections: R long A1 for trigger finger Informed Consent Consent Obtained: Verbal [place] Protocol A moment to CARE was completed. SIGN IN Sign in communication not applicable due to emergent procedure. Personnel directly involved with the procedure wore the appropriate PPE. Special Equipment: N/A Patient/Surrogate Stated/Verified: Patient name, Date of , Relevant allergies and Intended procedure TIME OUT Intended patient and procedure match the source document(s). Consent documented and matches the intended procedure. Relevant labs, photos, and/or imaging studies have been reviewed. Correct side/site marked and visible. Medications required for procedure verified. No fire risk assessment and interventions applicable. No implant(s) inserted. 02/10/2024 9:01 AM The procedure site was prepped in the usual sterile fashion. Medications: 3 mg betamethasone acetate-betamethasone sodium phosphate 6 mg/mL Anesthetics: 0.5 mL lidocaine (PF) 10 mg/mL (1 %) Outcome: tolerated well, no immediate complications Post-injection instructions were reviewed with the patient and the patient voiced understanding of these instructions. SIGN OUT No specimen collected. No instruments, equipment or retained foreign bodies applicable. Post-procedure follow-up management communicated and Plan of Care Visit completed when applicable [facility] CNOVon 02-10-2024 CNOV Office Visit (JONELLEWS ) LEYDA LOPEZ ([id number]) 1960 F Date Time Provider Department 02/10/24 8:30 AM SEBAS MOLINA During your visit today, we recorded the following information about you: Sebas Molina MD 02/10/2024 12:35 PM Signed Sebas Molina MD Department of Orthopaedics Orthopaedics [address] [facility] [address] Dept: [phone] Dept February 10, 2024 CHIEF COMPLAINT: Established Patient and Follow Up of the Right Hand HPI Patient is 5 month post visit Right thumb [facility] arthritis. Here today for right middle finger locking. Started 1 week ago. She is right hand dominant. ASSESSMENT: M65.331 Trigger middle finger of right hand (primary encounter diagnosis) PLAN: She would like to go with a cortisone injection today and she may consider surgery down the line if symptoms do not improve. OBJECTIVE: Ms. Leyda Lopez is a pleasant 63 year old in no apparent distress. Gen:There were no vitals taken for this visit. nl development, non obese, no deformities ENT: Normocephalic, normal hearing, moist mucosa CV: Pulses:Radial= 2+ and symmetric, capillary refill < 2 secs, no peripheral edema/varicosities Skin: no rash, bruising or lesions. Good turgor. Psych: cooperative and appropriate, alert and oriented x 3, good mood and affect. Musculoskeletal: Tender to palpation at the A1 rafal site of the finger on the right. Clicking and catching of the finger as well. Additional Injections: R long A1 for trigger finger Informed Consent Consent Obtained: Verbal [place] Protocol A moment to CARE was completed. SIGN IN Sign in communication not applicable due to emergent procedure. Personnel directly involved with the procedure wore the appropriate PPE. Special Equipment: N/A Patient/Surrogate Stated/Verified: Patient name, Date of , Relevant allergies and Intended procedure TIME OUT Intended patient and procedure match the source document(s). Consent documented and matches the intended procedure. Relevant labs, photos, and/or imaging studies have been reviewed. Correct side/site marked and visible. Medications required for procedure verified. No fire risk assessment and interventions applicable. No implant(s) inserted. 02/10/2024 9:01 AM The procedure site was prepped in the usual sterile fashion. Medications: 3 mg betamethasone acetate-betamethasone sodium phosphate 6 mg/mL Anesthetics: 0.5 mL lidocaine (PF) 10 mg/mL (1 %) Outcome: tolerated well, no immediate complications Post-injection instructions were reviewed with the patient and the patient voiced understanding of these instructions. SIGN OUT No specimen collected. No instruments, equipment or retained foreign bodies applicable. Post-procedure follow-up management communicated and Plan of Care Visit completed when applicable Imaging: Deferred Supporting Subjective Information Below: Past Surgical History: PAST SURGICAL HISTORY Procedure Laterality Date COLONOSCOPY FLX DX W/COLLJ SPEC WHEN PFRMD 01/23/08 Normal COLONOSCOPY FLX DX W/COLLJ SPEC WHEN PFRMD 01/09/2012 Colonoscopy DIAGNOSTIC ARTHROSCOPY SHOULDER +- SYNOVIAL BX Right 04/10/2017 Right shoulder arthroscopy with open SAD and rotator cuff repair EGD TRANSORAL BIOPSY SINGLE/MULTIPLE 01/23/08 Minimal antral gastritis HEART CATHETERIZATION 01/2016 no intervention Partial hysterectomy still has ovaries PAST SURGICAL HISTORY OF 02/2016 total teeth extraction RMVL LENS MATERIAL PHACOFRAGMENTATION ASPIR 12/2010 Cataract Extraction RPR UMBILICAL HRNA 5 YRS/> REDUCIBLE 12/04/2016 Hernia repair, umbilical >5yr SURGICAL ARTHROSCOPY SHOULDER W/ROTATOR CUFF RPR Right 01/01/2018 Right shoulder arthroscopy SAD, Acromioplasty, debridement glenohumeral joint, biceps tenotomy, RCR, superior capsular reconstruction Medications: Current Outpatient Medications Medication Sig loperamide (IMODIUM) 2 mg cap(s) Take 1 capsule by mouth three times a day as needed. SUMAtriptan (IMITREX) 50 mg tablet Take 1 tablet (50 mg) by mouth as needed for migraine headache (see administration instructions). START AT ONSET OF HEADACHE. MAY REPEAT DOSE AFTER 2 HOURS. tiZANidine (ZANAFLEX) 4 mg tablet Take 1 tablet by mouth every 8 hours as needed. fluticasone-salmeterol (ADVAIR, WIXELA) 250-50 mcg/dose inhaler INHALE 1 PUFF BY MOUTH DIRECTED TWICE DAILY busPIRone (BUSPAR) 10 mg tablet Take 1 tablet by mouth three times a day. potassium chloride ER (KLOR-CON) 20 mEq tablet Take 1 tablet by mouth once daily. pregabalin (LYRICA) 100 mg capsule Take 1 capsule by mouth two times a day for 90 days. lisinopril (ZESTRIL) 40 mg tablet Take 1 tablet by mouth once daily. atorvastatin (LIPITOR) 40 mg tablet TAKE ONE TABLET BY MOUTH DAILY AT 9PM AT BEDTIME furosemide (LASIX) 40 mg tablet TAKE ONE TABLE (more content not included)... Normal [facility] CNOVon 01-16-2024 CNOV Office Visit (SPAGWO ) LEYDA LOPEZ ([id number]) 1960 F Date Time Provider Department 01/16/24 3:00 PM PREVELMA NURISMarkos PAYTON During your visit today, we recorded the following information about you: Pulse Respiration [facility] ([id number]) 1960 F Date Time Provider Department 01/16/24 BREANNANURIS CARREON During your visit today, we recorded the following information about you: Merrick Lange 01/16/2024 3:10 PM Signed Procedure(s) being scheduled: Thoracic MBBs 1.Are you diabetic No 2. Are you on any blood thinners? No 3. Are you taking any aspirin? Yes, 325mg asp 4. Are you currently taking any antibiotics? No 5. Do you have any allergies to latex? No 6. Do you have any allergies to seafood or shellfish? No 7. Do you have any allergies to x-ray dye? No 8. Does this procedure require a stacker driver? Yes If yes, has patient been notified that a stacker driver is needed and must be present at check in? yes 9. Were the pre-procedure instructions explained and provided to the patient? Yes 10. Do you have a pacemaker? No 11. Do you have an internal stimulator of any kind? No If yes, please bring the remote with you to your procedure visit. Merrick Lange Allergies As of Date: 01/16/2024 Noted Allergy Reaction AMLODIPINE 06/13/2023 14 - Other: See Comments Comments: shaky and jittery ATIVAN (LORAZEPAM) 08/24/2014 1 - Mental Status Change 11 - Vomiting Comments: mood swings BACLOFEN 06/04/2014 1 - Mental Status Change Comments: angry,mood effect METHOTREXATE 12/20/2011 11 - Vomiting Comments: abdomen pain,vomiting, sbo NADOLOL 02/05/2013 5 - Intolerance Comments: body burning,tingly NEXIUM (ESOMEPRAZOLE MAGNESIUM) 07/15/2015 14 - Other: See Comments Comments: reflux-no relief PENICILLIN G 09/29/2012 8 - GI Upset Comments: patient reports these symptoms after medication was ordered PROPRANOLOL 01/30/2013 5 - Intolerance Comments: fatigue,sleepy Date Reviewed: 01/16/2024 Reviewed by: Nuris Barba APRN.PLATE FILLER - Fully Assessed Reason for Visit: Injections [199] Prescriptions as of 01/16/2024 - fluticasone-salmeterol (ADVAIR, WIXELA) 250-50 mcg/dose inhaler INHALE 1 PUFF BY MOUTH DIRECTED TWICE DAILY - busPIRone (BUSPAR) 10 mg tablet Take 1 tablet by mouth three times a day. - potassium chloride ER (KLOR-CON) 20 mEq tablet Take 1 tablet by mouth once daily. - pregabalin (LYRICA) 100 mg capsule Take 1 capsule by mouth two times a day for 90 days. - SUMAtriptan (IMITREX) 50 mg tablet Take 1 tablet (50 mg) by mouth as needed for migraine headache (see administration instructions). START AT ONSET OF HEADACHE. MAY REPEAT DOSE AFTER 2 HOURS. - tiZANidine (ZANAFLEX) 4 mg tablet Take 1 tablet by mouth every 8 hours as needed. - lisinopril (ZESTRIL) 40 mg tablet Take 1 tablet by mouth once daily. - atorvastatin (LIPITOR) 40 mg tablet TAKE ONE TABLET BY MOUTH DAILY AT 9PM AT BEDTIME - furosemide (LASIX) 40 mg tablet TAKE ONE TABLET BY MOUTH DAILY AT 9AM Strength: 40 mg - ondansetron orally disintegrating (ZOFRAN ODT) 4 mg disintegrating tablet Take 1 tablet by mouth every 8 hours as needed. - traZODone (DESYREL) 50 mg tablet Take 1 tablet by mouth daily at bedtime. - loperamide (IMODIUM) 2 mg cap(s) Take 1 capsule by mouth three times a day as needed. - hydrOXYzine HCl (ATARAX) 50 mg tablet Take 1 tablet by mouth every 8 hours as needed for anxiety. - escitalopram oxalate (LEXAPRO) 20 mg tablet Take 1 tablet by mouth once daily. - albuterol HFA (PROAIR HFA) 90 mcg/actuation inhaler Inhale 2 Puffs as instructed. - nitroglycerin sublingual (NITROQUICK) 0.4 mg SL tablet Dissolve 0.4 mg under the tongue every 5 minutes as needed for chest pain. - acetaminophen 325 mg cap Take by mouth. - Dexlansoprazole (DEXILANT) 60 mg CpDM TAKE ONE CAPSULE BY MOUTH DAILY AT 9AM - fluticasone (FLONASE) 50 mcg/actuation nasal spray INSTILL 2 SPRAYS IN EACH NOSTRIL DAILY RINSE MOUTH AFTER USE (BULK) - hyoscyamine sublingual (LEVSIN SL) 0.125 mg Dissolve 1 tablet under the tongue three times daily as needed. - ipratropium (ATROVENT) 0.02 % nebulizer solution Use 2.5 mL via nebulizer four times daily as needed for Wheezing/Shortness of Breath. Use over 5-15minutes. Dx:J45.40 - Cholecalciferol, Vitamin D3, 2,000 unit tab Take 2 tablets by mouth once daily. Meds Comments as of 07/05/2023: Patient is not sure what antibiotic she was place on in hospital Problem List As Of Date 01/16/2024 Noted Resolved Essential hypertension [I10] 03/22/2005 Moderate episode of recurrent major depressive *03/22/2005 PANIC DISORDER WITHOUT AGORAPHOBIA [F41.0] 03/22/2005 Asthma [J45.909] 03/22/2005 Hyperlipidemia [E78.5] ANEMIA BLOOD LOSS CHRONIC [D50.0] 12/23/2007 12/01/2013 BONE AND CARTILAGE DIS NOS [M89.9, M94.9] 02/09/2008 CRI (chronic renal insufficiency) (HCC) [N18.9] 09/30/2009 12/01/2013 Bipolar affective [F31.9] 04/27/2010 05/21/2018 COPD (chronic obstructive pulmonary disease) [J*10/04/2010 Hypokalemia [E87.6] 10/04/2010 12/01/2013 Left Plantar fasciitis [M72.2] 10/04 (more content not included)... Normal [facility] [place] 01-02-2024 DAVID Telephone (INTMWS) LEYDA LOPEZ ([id number]) 1960 F Date Time Provider Department 01/02/24 DALI RICE INTAMANDA During your visit today, we recorded the following information about you: Dali Rice APRN.CNP 01/02/2024 12:28 PM Signed Potassium level is low. Has she been taking her prescribed potassium supplement? This was prescribed by other provider. Please verify how much she is taking and who is prescribing it. Thank you Dali Rice APRN.Cesia Martinez LPN 01/02/2024 1:17 PM Signed Called and left message for patient to call office back. Cesia Steele LPN January 02, 2024 1:16 PM Kellen Alexandra LPN 01/03/2024 1:12 PM Signed Patient returned call and went over results, notes from Dali Rice CARPET BINDER. Patient said she has been out of her potassium rx completed it from when she was in the hospital last time. Patient asking for another rx to be sent to [facility] pharmacy please. Dali Rice APRN.CNP 01/03/2024 1:38 PM Signed Potassium supplement reordered as previously taking. Recheck level next week. Thank you Dali Rice APRN.Michelle Heard MA 01/03/2024 2:33 PM Signed Left message for return call. Gsutavo Wells RN 01/03/2024 3:04 PM Signed Pt called and is notified of providers message and instructions. Pt voices understanding. Gustavo Wells RN Allergies As of Date: 01/02/2024 Noted Allergy Reaction AMLODIPINE 06/13/2023 14 - Other: See Comments Comments: kale ATIVAN (LORAZEPAM) 08/24/2014 1 - Mental Status Change 11 - Vomiting Comments: mood swings BACLOFEN 06/04/2014 1 - Mental Status Change Comments: angry,mood effect METHOTREXATE 12/20/2011 11 - Vomiting Comments: abdomen pain,vomiting, sbo NADOLOL 02/05/2013 5 - Intolerance Comments: body burning,tingly NEXIUM (ESOMEPRAZOLE MAGNESIUM) 07/15/2015 14 - Other: See Comments Comments: reflux-no relief PENICILLIN G 09/29/2012 8 - GI Upset Comments: patient reports these symptoms after medication was ordered PROPRANOLOL 01/30/2013 5 - Intolerance Comments: fatigue,sleepy Date Reviewed: 12/11/2023 Reviewed by: Michelle Beckham MA - Fully Assessed Reason for Visit: Results [95] Primary Visit Diagnosis:Hypokalemia [E87.6] Order(s):potassium chloride ER (KLOR-CON) 20 mEq tabletTake 1 tablet by mouth once daily.Disp: 30 tabletRfl: 1 BASIC METABOLIC PANEL [SQBMP] Order #: [id number] FUTURE Prescriptions as of 01/03/2024 - potassium chloride ER (KLOR-CON) 20 mEq tablet Take 1 tablet by mouth once daily. - pregabalin (LYRICA) 100 mg capsule Take 1 capsule by mouth two times a day for 90 days. - SUMAtriptan (IMITREX) 50 mg tablet Take 1 tablet (50 mg) by mouth as needed for migraine headache (see administration instructions). START AT ONSET OF HEADACHE. MAY REPEAT DOSE AFTER 2 HOURS. - tiZANidine (ZANAFLEX) 4 mg tablet Take 1 tablet by mouth every 8 hours as needed. - lisinopril (ZESTRIL) 40 mg tablet Take 1 tablet by mouth once daily. - atorvastatin (LIPITOR) 40 mg tablet TAKE ONE TABLET BY MOUTH DAILY AT 9PM AT BEDTIME - furosemide (LASIX) 40 mg tablet TAKE ONE TABLET BY MOUTH DAILY AT 9AM Strength: 40 mg - ondansetron orally disintegrating (ZOFRAN ODT) 4 mg disintegrating tablet Take 1 tablet by mouth every 8 hours as needed. - busPIRone (BUSPAR) 10 mg tablet Take 1 tablet by mouth three times a day. - traZODone (DESYREL) 50 mg tablet Take 1 tablet by mouth daily at bedtime. - loperamide (IMODIUM) 2 mg cap(s) Take 1 capsule by mouth three times a day as needed. - hydrOXYzine HCl (ATARAX) 50 mg tablet Take 1 tablet by mouth every 8 hours as needed for anxiety. - escitalopram oxalate (LEXAPRO) 20 mg tablet Take 1 tablet by mouth once daily. - fluticasone-salmeterol (ADVAIR, WIXELA) 250-50 mcg/dose inhaler Inhale 1 Puff as instructed two times a day. - albuterol HFA (PROAIR HFA) 90 mcg/actuation inhaler Inhale 2 Puffs as instructed. - nitroglycerin sublingual (NITROQUICK) 0.4 mg SL tablet Dissolve 0.4 mg under the tongue every 5 minutes as needed for chest pain. - acetaminophen 325 mg cap Take by mouth. - Dexlansoprazole (DEXILANT) 60 mg CpDM TAKE ONE CAPSULE BY MOUTH DAILY AT 9AM - fluticasone (FLONASE) 50 mcg/actuation nasal spray INSTILL 2 SPRAYS IN EACH NOSTRIL DAILY RINSE MOUTH AFTER USE (BULK) - hyoscyamine sublingual (LEVSIN SL) 0.125 mg Dissolve 1 tablet under the tongue three times daily as needed. - ipratropium (ATROVENT) 0.02 % nebulizer solution Use 2.5 mL via nebulizer four times daily as needed for Wheezing/Shortness of Breath. Use over 5-15minutes. Dx:J45.40 - Cholecalciferol, Vitamin D3, 2,000 unit tab Take 2 tablets by mouth once daily. Meds Comments as of 07/05/2023: Patient is not sure what antibiotic she was place on in hospital Problem List As Of Date 01/02/2024 Noted Resolved Essential hypertension [I10] 03/22/2005 Moderate episode (more content not included)... Normal [facility] [place] 12-27-2023 MARIETTAN Telephone (INTMWS) LEYDA LOPEZ ([id number]) 1960 F Date Time Provider Department 12/27/23 VELVET PALACIO During your visit today, we recorded the following information about you: Gustavo Wells, RICARDO 12/27/2023 2:50 PM Signed Pt called in and was asking for lab results. BUN and creat have improved. Pt was asking if provider would increase her Lyrica, she states she was waiting on these labs to come back for provider to do this. Let Pt know her sodium was high and asked if she was eating things high in sodium and she said she was eating a lot of cereal and toast. Pts K+ was 3.3, and she states she used to be on a potassium pill. Pt was asking if provider would re-order potassium pill, Pt uses [facility] in [place]. Please call and advise Pt. BUN 7 - 21 mg/dL 17 39 High 31 High 22 High 25 High Creatinine 0.58 - 0.96 mg/dL 1.05 High 1.44 High 1.12 High 1.08 High 1.08 High 1.17 High Sodium 136 - 144 mmol/L 146 High 143 142 143 141 Potassium 3.7 - 5.1 mmol/L 3.3 Low 4.6 4.7 4.5 4.7 Chloride 98 - 107 mmol/L 103 107 101 R 104 R 105 R CO2 22 - 30 mmol/L 31 High 24 25 29 25 Anion Gap 8 - 15 mmol/L 12 12 16 R 10 R 11 R Calcium, Total 8.5 - 10.2 mg/dL 9.2 9.8 9.5 9.3 9.3 8.9 Estimated Glomerular Filtration Rate >=60 mL/min/1.73m? 60 41 Low CM 56 Low CM 58 Low CM 58 Low CM 53 Low CM Velvet Palacio MD 12/30/2023 6:18 PM Signed Ordered lyrica, Would like her to follow up with me regarding the low potassium this week or next Regards, Gustavo Daniel MD, RICARDO 12/31/2023 8:09 AM Signed Pt called and is notified of providers results and instructions. Pt voices understanding. Pt scheduled with Dr Palacio 01/06/24. Gustavo Wells RN Allergies As of Date: 12/27/2023 Noted Allergy Reaction AMLODIPINE 06/13/2023 14 - Other: See Comments Comments: shaky and jittery ATIVAN (LORAZEPAM) 08/24/2014 1 - Mental Status Change 11 - Vomiting Comments: mood swings BACLOFEN 06/04/2014 1 - Mental Status Change Comments: angry,mood effect METHOTREXATE 12/20/2011 11 - Vomiting Comments: abdomen pain,vomiting, sbo NADOLOL 02/05/2013 5 - Intolerance Comments: body burning,tingly NEXIUM (ESOMEPRAZOLE MAGNESIUM) 07/15/2015 14 - Other: See Comments Comments: reflux-no relief PENICILLIN G 09/29/2012 8 - GI Upset Comments: patient reports these symptoms after medication was ordered PROPRANOLOL 01/30/2013 5 - Intolerance Comments: fatigue,sleepy Date Reviewed: 12/11/2023 Reviewed by: Michelle Beckham MA - Fully Assessed Reason for Visit: Results [95] Patient Question [1147] Medication Question [1478] Primary Visit Diagnosis:Pain syndrome, chronic [G89.4] Order(s):pregabalin (LYRICA) 100 mg capsuleTake 1 capsule by mouth two times a day for 90 days.Disp: 60 capsuleRfl: 2 Prescriptions as of 12/31/2023 - pregabalin (LYRICA) 100 mg capsule Take 1 capsule by mouth two times a day for 90 days. - SUMAtriptan (IMITREX) 50 mg tablet Take 1 tablet (50 mg) by mouth as needed for migraine headache (see administration instructions). START AT ONSET OF HEADACHE. MAY REPEAT DOSE AFTER 2 HOURS. - tiZANidine (ZANAFLEX) 4 mg tablet Take 1 tablet by mouth every 8 hours as needed. - lisinopril (ZESTRIL) 40 mg tablet Take 1 tablet by mouth once daily. - atorvastatin (LIPITOR) 40 mg tablet TAKE ONE TABLET BY MOUTH DAILY AT 9PM AT BEDTIME - furosemide (LASIX) 40 mg tablet TAKE ONE TABLET BY MOUTH DAILY AT 9AM Strength: 40 mg - ondansetron orally disintegrating (ZOFRAN ODT) 4 mg disintegrating tablet Take 1 tablet by mouth every 8 hours as needed. - busPIRone (BUSPAR) 10 mg tablet Take 1 tablet by mouth three times a day. - traZODone (DESYREL) 50 mg tablet Take 1 tablet by mouth daily at bedtime. - loperamide (IMODIUM) 2 mg cap(s) Take 1 capsule by mouth three times a day as needed. - hydrOXYzine HCl (ATARAX) 50 mg tablet Take 1 tablet by mouth every 8 hours as needed for anxiety. - escitalopram oxalate (LEXAPRO) 20 mg tablet Take 1 tablet by mouth once daily. - fluticasone-salmeterol (ADVAIR, WIXELA) 250-50 mcg/dose inhaler Inhale 1 Puff as instructed two times a day. - potassium chloride ER (KLOR-CON) 20 mEq tablet Take 20 mEq by mouth. - albuterol HFA (PROAIR HFA) 90 mcg/actuation inhaler Inhale 2 Puffs as instructed. - nitroglycerin sublingual (NITROQUICK) 0.4 mg SL tablet Dissolve 0.4 mg under the tongue every 5 minutes as needed for chest pain. - acetaminophen 325 mg cap Take by mouth. - Dexlansoprazole (DEXILANT) 60 mg CpDM TAKE ONE CAPSULE BY MOUTH DAILY AT 9AM - fluticasone (FLONASE) 50 mcg/actuation nasal spray INSTILL 2 SPRAYS IN EACH NOSTRIL DAILY RINSE MOUTH AFTER USE (BULK) - hyoscyamine sublingual (LEVSIN SL) 0.125 mg Dissolve 1 tablet under the tongue three times daily as needed. - ipratropium (ATROVENT) 0.02 % nebulizer solution Use 2. (more content not included)... Normal [facility] Basic metabolic 2000 panelon 12-26-2023 Anion gap [Moles/Vol] 12 mmol/L Normal 8-15 [facility] Comment on above: Order Comment: Speci men Type: BLOOD SPECIMENOrdering Facility: [facility] Address: [address] [place] [address] Performed By: #### 2 4321-2 ####[facility] [id number] [address] [address] [place] Calcium [Mass/Vol] 9.2 mg/dL Normal 8.5-10.2 [facility] Comment on above: Order Comment: Speci men Type: BLOOD SPECIMENOrdering Facility: [facility] Address: [address] [place] [address] Performed By: #### 2 4321-2 ####[facility] [id number] [place] [address] [place] Chloride [Moles/Vol] 103 mmol/L Normal 98-107 [facility] Comment on above: Order Comment: Speci men Type: BLOOD SPECIMENOrdering Facility: [facility] Address: [address] [place] [address] Performed By: #### 2 4321-2 ####[facility] [id number] [place] [address] [place] CO2 [Moles/Vol] 31 mmol/L High 22-30 [facility] Comment on above: Order Comment: Speci men Type: BLOOD SPECIMENOrdering Facility: [facility] Address: [address] [place] [address] Performed By: #### 2 4321-2 ####[facility] [id number] [place] [address] [place] Creatinine [Mass/Vol] 1.05 mg/dL High 0.58-0.96 [facility] Comment on above: Order Comment: Speci men Type: BLOOD SPECIMENOrdering Facility: [facility] Address: [address] [place] [address] Performed By: #### 2 4321-2 ####[facility] [id number] [place] [address] [place] Creatinine and Glomerular filtration rate.predicted panel (S/P/Bld) 60 mL/min/1.73m??? Normal >=60 [facility] Comment on above: Order Comment: Speci men Type: BLOOD SPECIMENOrdering Facility: [facility] Address: [address] [place] [address] Result Comment: [place] mated Glomerular Filtration Rate (eGFR) is calculated using the 2020 CKD-EPI creatinine equation. This equation utilizes serum creatinine, sex, and age as parameters. The creatinine assay has traceable calibration to isotope dilution-mass spectrometry. Refer to KDIGO guidelines for clinical interpretation. In patients with unstable renal function, e.g. those with acute kidney injury, the eGFR may not accurately reflect actual GFR. Performed By: #### 2 4321-2 ####[facility] [id number] [place] [address] [place] Glucose [Mass/Vol] 87 mg/dL Normal 74-99 [facility] Comment on above: Order Comment: Speci men Type: BLOOD SPECIMENOrdering Facility: [facility] Address: [address] [place] [address] Result Comment: The [place] Diabetes [employer] (ADA) provides guidance for cutoff values for fasting glucose and random glucose. The ADA defines fasting as no caloric intake for at least 8 hours. Fasting plasma glucose results between 100 to 125 mg/dL indicate increased risk for diabetes (prediabetes). Fasting plasma glucose results greater than or equal to 126 mg/dL meet the criteria for diagnosis of diabetes. In the absence of unequivocal hyperglycemia, results should be confirmed by repeat testing. In a patient with classic symptoms of hyperglycemia or hyperglycemic crisis, random plasma glucose results greater than or equal to 200 mg/dL meet the criteria for diagnosis of diabetes. Reference: Standards of Medical Care in Diabetes 2016, [place] [employer] Association. Diabetes Care. 2016.39(Suppl 1). Performed By: #### 2 4321-2 ####[facility] [id number] [place] [address] [place] Potassium [Moles/Vol] 3.3 mmol/L Low 3.7-5.1 [facility] Comment on above: Order Comment: Speci men Type: BLOOD SPECIMENOrdering Facility: [facility] Address: [address] [place] [address] Performed By: #### 2 4321-2 ####[facility] [id number] [place] [id number] [place] Sodium [Moles/Vol] 146 mmol/L High 136-144 [facility] Comment on above: Order Comment: Speci men Type: BLOOD SPECIMENOrdering Facility: [facility] Address: [address] [place] [id number] Performed By: #### 2 4321-2 ####[facility]IA [id number] [address] [place] Urea nitrogen [Mass/Vol] 17 mg/dL Normal 7-21 [facility] Comment on above: Order Comment: Speci men Type: BLOOD SPECIMENOrdering Facility: [facility] Address: [address] [place] [id number] Performed By: #### 2 4321-2 ####[facility] [id number] [address] [facility] Tyree 12-12-2023 DAIVD Telephone (JANEEN) LEYDA LOPEZ ([id number]) 1960 F Date Time Provider Department 12/12/23 MARI MARTINEZ During your visit today, we recorded the following information about you: Mari Martinez APRN.CNP 12/12/2023 11:06 AM Signed Please call and inform the patient that her creatinine (measure of kidney function) is elevated. She should stay well hydrated and follow up with her pcp for this. Her calcium and vitamin D levels are within normal limits. The reclast has been approved. Please see if she is agreeable to starting it. If so, please provide her with information to schedule at [place], she is due now. Please advise her to stay well hydrated the day of the infusion. She should have labs done to check a calcium level 2 weeks after the reclast. If she is agreeable to starting reclast, please route the message back to me so that I can place the order. Thanks, Mari Martinez APRN.Raine Reyna, RICARDO 12/12/2023 11:13 AM Signed Spoke with patient, relayed message below, states she has spoken with PCP office this morning regarding labs. Also states she is not ready to proceed with Reclast at this time, patient has no questions for provider regarding Reclast at this time. Agrees to reach out to office at [phone] or thru MyChart when she is more clear in her head and has delt with other things going on RICARDO Patino Deshawn, APRN.CNP 12/12/2023 11:24 AM Signed Noted. Mari Mueller APRN.PLATE FILLER Allergies As of Date: 12/12/2023 Noted Allergy Reaction AMLODIPINE 06/13/2023 14 - Other: See Comments Comments: shaky and jittery ATIVAN (LORAZEPAM) 08/24/2014 1 - Mental Status Change 11 - Vomiting Comments: mood swings BACLOFEN 06/04/2014 1 - Mental Status Change Comments: angry,mood effect METHOTREXATE 12/20/2011 11 - Vomiting Comments: abdomen pain,vomiting, sbo NADOLOL 02/05/2013 5 - Intolerance Comments: body burning,tingly NEXIUM (ESOMEPRAZOLE MAGNESIUM) 07/15/2015 14 - Other: See Comments Comments: reflux-no relief PENICILLIN G 09/29/2012 8 - GI Upset Comments: patient reports these symptoms after medication was ordered PROPRANOLOL 01/30/2013 5 - Intolerance Comments: fatigue,sleepy Date Reviewed: 12/11/2023 Reviewed by: Michelle Beckham MA - Fully Assessed Reason for Visit: Results [95] 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 - predniSONE (DELTASONE) 10 mg tablet Take 4 tabs daily for 3 days, then 2 tabs daily for 3 days, then 1 tab daily for 3 days with food. - meloxicam (MOBIC) 7.5 mg tablet Take 1 tablet by mouth two times a day. - atorvastatin (LIPITOR) 40 mg tablet TAKE ONE TABLET BY MOUTH DAILY AT 9PM AT BEDTIME - pregabalin (LYRICA) 75 mg capsule Take 1 capsule by mouth two times a day for 180 days. - furosemide (LASIX) 40 mg tablet TAKE ONE TABLET BY MOUTH DAILY AT 9AM Strength: 40 mg - ondansetron orally disintegrating (ZOFRAN ODT) 4 mg disintegrating tablet Take 1 tablet by mouth every 8 hours as needed. - tiZANidine (ZANAFLEX) 4 mg tablet Take 1 tablet by mouth every 8 hours as needed. - busPIRone (BUSPAR) 10 mg tablet Take 1 tablet by mouth three times a day. - SUMAtriptan (IMITREX) 50 mg tablet Take 1 tablet (50 mg) by mouth as needed for migraine headache (see administration instructions). START AT ONSET OF HEADACHE. MAY REPEAT DOSE AFTER 2 HOURS. - traZODone (DESYREL) 50 mg tablet Take 1 tablet by mouth daily at bedtime. - loperamide (IMODIUM) 2 mg cap(s) Take 1 capsule by mouth three times a day as needed. - hydrOXYzine HCl (ATARAX) 50 mg tablet Take 1 tablet by mouth every 8 hours as needed for anxiety. - escitalopram oxalate (LEXAPRO) 20 mg tablet Take 1 tablet by mouth once daily. - fluticasone-salmeterol (ADVAIR, WIXELA) 250-50 mcg/dose inhaler Inhale 1 Puff as instructed two times a day. - potassium chloride ER (KLOR-CON) 20 mEq tablet Take 20 mEq by mouth. - albuterol HFA (PROAIR HFA) 90 mcg/actuation inhaler Inhale 2 Puffs as instructed. - nitroglycerin sublingual (NITROQUICK) 0.4 mg SL tablet Dissolve 0.4 mg under the tongue every 5 minutes as needed for chest pain. - acetaminophen 325 mg cap Take by mouth. - Dexlansoprazole (DEXILANT) 60 mg CpDM TAKE ONE CAPSULE BY MOUTH DAILY AT 9AM - fluticasone (FLONASE) 50 mcg/actuation nasal spray INSTILL 2 SPRAYS IN EACH NOSTRIL DAILY RINSE MOUTH AFTER USE (BULK) - hyoscyamine sublingual (LEVSIN SL) 0.125 mg Dissolve 1 tablet under the tongue three times daily as needed. - ipratropium (ATROVENT) 0.02 % nebulizer solution Use 2.5 mL via nebulizer four times daily as needed for Wheezing/Shortness of Breath. Use over 5-15minutes. Dx:J45.40 - Cholecalciferol, Vitamin D3, 2,000 unit tab Take 2 tablets by mouth once (more content not included)... [facility] JOHNLEYDA JOR[facility] ([id number]) 1960 F Date Time Provider Department 12/12/23 DALI RICE During your visit today, we recorded the following information about you: Dali Rice APRN.CNP 12/12/2023 7:18 AM Signed Kidney function decreased. Do not take any meloxicam, ibuprofen, advil, aleve, naproxen, or any other anti-inflammatory. Can take tylenol. Also increase water to stay hydrated and recheck in 2 weeks. Thank you Dali Rice APRN.Gustavo Vitale RN 12/12/2023 9:59 AM Signed Pt called and is notified of providers results and instructions. Pt voices understanding. Pt was asking about the Prednisone taper the provider put her on if she is still able to take that. Pt was also asking about her Lasix that she takes if that is ok. Pt states she thought the provider had talked about increasing her Lyrical, but she never did. Please call and advise. RICARDO Rose Joy, APRN.CNP 12/12/2023 12:41 PM Signed I wanted her to do the prednisone before any increase and yes she is fine to take this. Continue lasix for now and follow previous instructions. Will revaluate this when kidney function rechecked in 2 weeks. Thank you Dali Rice APRN.Gustavo Vitale RN 12/12/2023 1:26 PM Signed Pt called and is notified of providers results and instructions. Pt voices understanding. Gustavo Wells RN Allergies As of Date: 12/12/2023 Noted Allergy Reaction AMLODIPINE 06/13/2023 14 - Other: See Comments Comments: shaky and jittery ATIVAN (LORAZEPAM) 08/24/2014 1 - Mental Status Change 11 - Vomiting Comments: mood swings BACLOFEN 06/04/2014 1 - Mental Status Change Comments: angry,mood effect METHOTREXATE 12/20/2011 11 - Vomiting Comments: abdomen pain,vomiting, sbo NADOLOL 02/05/2013 5 - Intolerance Comments: body burning,tingly NEXIUM (ESOMEPRAZOLE MAGNESIUM) 07/15/2015 14 - Other: See Comments Comments: reflux-no relief PENICILLIN G 09/29/2012 8 - GI Upset Comments: patient reports these symptoms after medication was ordered PROPRANOLOL 01/30/2013 5 - Intolerance Comments: fatigue,sleepy Date Reviewed: 12/11/2023 Reviewed by: Michelle Beckham MA - Fully Assessed Reason for Visit: Results [95] Primary Visit Diagnosis:Stage 3 chronic kidney disease, unspecified whether stage 3a or 3b CKD (HCC) [N18.30] Order(s):BASIC METABOLIC PANEL [SQBMP] Order #: [id number] FUTURE Prescriptions as of 12/12/2023 - lisinopril (ZESTRIL) 40 mg tablet Take 1 tablet by mouth once daily. - predniSONE (DELTASONE) 10 mg tablet Take 4 tabs daily for 3 days, then 2 tabs daily for 3 days, then 1 tab daily for 3 days with food. - meloxicam (MOBIC) 7.5 mg tablet Take 1 tablet by mouth two times a day. - atorvastatin (LIPITOR) 40 mg tablet TAKE ONE TABLET BY MOUTH DAILY AT 9PM AT BEDTIME - pregabalin (LYRICA) 75 mg capsule Take 1 capsule by mouth two times a day for 180 days. - furosemide (LASIX) 40 mg tablet TAKE ONE TABLET BY MOUTH DAILY AT 9AM Strength: 40 mg - ondansetron orally disintegrating (ZOFRAN ODT) 4 mg disintegrating tablet Take 1 tablet by mouth every 8 hours as needed. - tiZANidine (ZANAFLEX) 4 mg tablet Take 1 tablet by mouth every 8 hours as needed. - busPIRone (BUSPAR) 10 mg tablet Take 1 tablet by mouth three times a day. - SUMAtriptan (IMITREX) 50 mg tablet Take 1 tablet (50 mg) by mouth as needed for migraine headache (see administration instructions). START AT ONSET OF HEADACHE. MAY REPEAT DOSE AFTER 2 HOURS. - traZODone (DESYREL) 50 mg tablet Take 1 tablet by mouth daily at bedtime. - loperamide (IMODIUM) 2 mg cap(s) Take 1 capsule by mouth three times a day as needed. - hydrOXYzine HCl (ATARAX) 50 mg tablet Take 1 tablet by mouth every 8 hours as needed for anxiety. - escitalopram oxalate (LEXAPRO) 20 mg tablet Take 1 tablet by mouth once daily. - fluticasone-salmeterol (ADVAIR, WIXELA) 250-50 mcg/dose inhaler Inhale 1 Puff as instructed two times a day. - potassium chloride ER (KLOR-CON) 20 mEq tablet Take 20 mEq by mouth. - albuterol HFA (PROAIR HFA) 90 mcg/actuation inhaler Inhale 2 Puffs as instructed. - nitroglycerin sublingual (NITROQUICK) 0.4 mg SL tablet Dissolve 0.4 mg under the tongue every 5 minutes as needed for chest pain. - acetaminophen 325 mg cap Take by mouth. - Dexlansoprazole (DEXILANT) 60 mg CpDM TAKE ONE CAPSULE BY MOUTH DAILY AT 9AM - fluticasone (FLONASE) 50 mcg/actuation nasal spray INSTILL 2 SPRAYS IN EACH NOSTRIL DAILY RINSE MOUTH AFTER USE (BULK) - hyoscyamine sublingual (LEVSIN SL) 0.125 mg Dissolve 1 tablet under the tongue three times daily as needed. - ipratropium (ATROVENT) 0.02 % nebulizer solution Use 2.5 mL via nebulizer four times daily as needed for Wheezing/Shortness of Breath. Use over 5-15minutes. Dx:J45.40 - Cholecalciferol, Vitamin D3, 2,000 unit tab Take 2 (more content not included)... Normal [facility] 25([place])D3 [facility] 25-hydroxyvitamin D3 [Mass/Vol] 39.4 ng/mL Normal 31.0-80.0 [facility] Comment on above: Order Comment: Speci men Type: BLOOD SPECIMENOrdering Facility: [facility] Address: [address] [place] [address] Result Comment: Clas sification of 25 [place] Vitamin D status: Deficiency/Insufficiency: < or = 30 ng/ml. Sufficiency/Optimal Levels: 31-80 ng/mL Toxicity: > 100 ng/mL. Test performed by chemiluminescent immunoassay. Performed By: #### 1 989-3 ####[facility] [id number] [place] [address] [place] Basic metabolic 2000 panelon 12-11-2023 Anion gap [Moles/Vol] 12 mmol/L Normal 8-15 [facility] Comment on above: Order Comment: Speci men Type: BLOOD SPECIMENOrdering Facility: [facility] Address: [address] [place] [address] Performed By: #### 2 4321-2 ####[facility] [id number] [place] [address] [place] Calcium [Mass/Vol] 9.8 mg/dL Normal 8.5-10.2 [facility] Comment on above: Order Comment: Speci men Type: BLOOD SPECIMENOrdering Facility: [facility] Address: [address] [place] [address] Performed By: #### 2 4321-2 ####[facility] [id number] [place] [address] [place] Chloride [Moles/Vol] 107 mmol/L Normal 98-107 [facility] Comment on above: Order Comment: Speci men Type: BLOOD SPECIMENOrdering Facility: [facility] Address: [address] [place] [address] Performed By: #### 2 4321-2 ####[facility]CL[facility] [id number] [place] [id number] [place] CO2 [Moles/Vol] 24 mmol/L Normal 22-30 [facility] Comment on above: Order Comment: Speci men Type: BLOOD SPECIMENOrdering Facility: [facility] Address: [address] [place], [place] [address] Performed By: #### 2 4321-2 ####[facility] [id number] [address] [address] [place] Creatinine [Mass/Vol] 1.44 mg/dL High 0.58-0.96 [facility] Comment on above: Order Comment: Perez holden Type: BLOOD SPECIMENOrdering Facility: [facility] Address: [address] [place] [address] Performed By: #### 2 4321-2 ####[facility] [id number] [place] [address] [place] Creatinine and Glomerular filtration rate.predicted panel (S/P/Bld) 41 mL/min/1.73m??? Low >=60 [facility] Comment on above: Order Comment: Perez holden Type: BLOOD SPECIMENOrdering Facility: [facility] Address: [address] [place] [address] Result Comment: [place] mated Glomerular Filtration Rate (eGFR) is calculated using the 2020 CKD-EPI creatinine equation. This equation utilizes serum creatinine, sex, and age as parameters. The creatinine assay has traceable calibration to isotope dilution-mass spectrometry. Refer to KDIGO guidelines for clinical interpretation. In patients with unstable renal function, e.g. those with acute kidney injury, the eGFR may not accurately reflect actual GFR. Performed By: #### 2 4321-2 ####[facility] [id number] [place] [address] [place] Glucose [Mass/Vol] 61 mg/dL Low 74-99 [facility] Comment on above: Order Comment: Ishani adina Type: BLOOD SPECIMENOrdering Facility: [facility] Address: [address] [place] [address] Result Comment: The [place] Diabetes Association (ADA) provides guidance for cutoff values for fasting glucose and random glucose. The ADA defines fasting as no caloric intake for at least 8 hours. Fasting plasma glucose results between 100 to 125 mg/dL indicate increased risk for diabetes (prediabetes). Fasting plasma glucose results greater than or equal to 126 mg/dL meet the criteria for diagnosis of diabetes. In the absence of unequivocal hyperglycemia, results should be confirmed by repeat testing. In a patient with classic symptoms of hyperglycemia or hyperglycemic crisis, random plasma glucose results greater than or equal to 200 mg/dL meet the criteria for diagnosis of diabetes. Reference: Standards of Medical Care in Diabetes 2016, [place] Diabetes [employer]. Diabetes Care. 2016.39(Suppl 1). Performed By: #### 2 4321-2 ####[facility] [id number] [place] [address] [place] Potassium [Moles/Vol] 4.6 mmol/L Normal 3.7-5.1 [facility] Comment on above: Order Comment: Speci men Type: BLOOD SPECIMENOrdering Facility: [facility] Address: [address] [place] [address] Performed By: #### 2 4321-2 ####[facility] [id number] [place] [address] [place] Sodium [Moles/Vol] 143 mmol/L Normal 136-144 [facility] Comment on above: Order Comment: Speci men Type: BLOOD SPECIMENOrdering Facility: [facility] Address: [address] [place] [address] Performed By: #### 2 4321-2 ####[facility] [id number] [place] [address] [place] Urea nitrogen [Mass/Vol] 39 mg/dL High 7-21 [facility] Comment on above: Order Comment: Speci men Type: BLOOD SPECIMENOrdering Facility: [facility] Address: [address] [place] [address] Performed By: #### 2 4321-2 ####[facility] [id number] [place] [id number] [place] CBC panel Auto (Bld)on 12-10 Erythrocyte distribution width (RBC) [Ratio] 13.5 % Normal 11.5-15.0 [facility] Comment on above: Order Comment: Speci men Type: BLOOD SPECIMENOrdering Facility: [facility] Address: [address] [place] [address] Performed By: #### 5 8410-2 ####[facility] [id number] [place] [address] [place] Hematocrit (Bld) [Volume fraction] 38.9 % Normal 36.0-46.0 [facility] Comment on above: Order Comment: Speci men Type: BLOOD SPECIMENOrdering Facility: [facility] Address: [address] [place] [address] Performed By: #### 5 8410-2 ####[facility] [id number] [place] [address] [place] Hemoglobin (Bld) [Mass/Vol] 12.5 g/dL Normal 11.5-15.5 [facility] Comment on above: Order Comment: Speci men Type: BLOOD SPECIMENOrdering Facility: [facility] Address: [address] [place] [address] Performed By: #### 5 8410-2 ####[facility] [id number] [place] [address] [place] MCH (RBC) [Entitic mass] 30.2 pg Normal 26.0-34.0 [facility] Comment on above: Order Comment: Speci men Type: BLOOD SPECIMENOrdering Facility: [facility] Address: [address] [place] [address] Performed By: #### 5 8410-2 ####[facility] [id number] [place] [address] [place] MCHC (RBC) [Mass/Vol] 32.1 g/dL Normal 30.5-36.0 [facility] Comment on above: Order Comment: Speci men Type: BLOOD SPECIMENOrdering Facility: [facility] Address: [address] [place] [address] Performed By: #### 5 8410-2 ####[facility] [id number] [place] [address] [place] MCV (RBC) [Entitic vol] 94.0 fL Normal 80.0-100.0 [facility] Comment on above: Order Comment: Speci men Type: BLOOD SPECIMENOrdering Facility: [facility] Address: [address] [place] [address] Performed By: #### 5 8410-2 ####[facility] [id number] [place] [address] [place] Nucleated RBC (Bld) [#/Vol] 10*3/uL Normal <0.01 [facility] Comment on above: Order Comment: Speci men Type: BLOOD SPECIMENOrdering Facility: [facility] Address: [address] [place] [address] Performed By: #### 5 8410-2 ####[facility] [id number] [place] [address] [place] Platelet mean volume (Bld) [Entitic vol] 10.3 fL Normal 9.0-12.7 [facility] Comment on above: Order Comment: Speci men Type: BLOOD SPECIMENOrdering Facility: [facility] Address: [address] [place] [address] Performed By: #### 5 8410-2 ####[facility] [id number] [place] [address] [place] Platelets (Bld) [#/Vol] 287 10*3/uL Normal 150-400 [facility] Comment on above: Order Comment: Speci men Type: BLOOD SPECIMENOrdering Facility: [facility] Address: [address] [place] [address] Performed By: #### 5 8410-2 ####[facility] [id number] [place] [address] [place] RBC (Bld) [#/Vol] 4.14 10*6/uL Normal 3.90-5.20 [facility] Comment on above: Order Comment: Speci men Type: BLOOD SPECIMENOrdering Facility: [facility] Address: [address] [place] [address] Performed By: #### 5 8410-2 ####[facility] [id number] [place] [address] [place] WBC (Bld) [#/Vol] 5.94 10*3/uL Normal 3.70-11.00 [facility] Comment on above: Order Comment: Speci men Type: BLOOD SPECIMENOrdering Facility: [facility] Address: [address] [place] [address] Performed By: #### 5 8410-2 ####[facility] [id number] [address] [place] CNOVon 12-11-2023 CNOV Office Visit (INTMWS ) LEYDA LOPEZ ([id number]) 1960 F Date Time Provider Department 12/11/23 2:00 PM KRYSTAL DALI INTMWS During your visit today, we recorded the following information about you: Pulse Respiration Blood pressure Weight 77/minute 16/minute 128/80 58.5 kg Dali Rice APRN.PLATE FILLER 12/11/2023 3:26 PM Signed CC: Patient presents with: Recheck: HTN follow up HPI eLyda Lopez is a 62 year old female who presents today for blood pressure follow up. Was seen a few weeks ago and lyrica increased to help with pain control as the pain was thought to increase her blood pressure. HTN: Ms. Lopez indicates that she is feeling well and denies any symptoms referable to elevated blood pressure. Specifically denies headache, chest pain, palpitations, dyspnea, and peripheral edema. Patient denies any side effects of her medication(s) and is compliant with their regimen. She does not check BP's generally. Leyda denies regular aerobic exercise. She watches her diet for sodium, low fat and low cholesterol most of the time. Last 3 Encounter BP Readings: Date: BP: 12/11/2023 128/80 11/12/2023 174/106 11/06/2023 138/92 Ongoing pain. Patient denies much improvement with increase of lyrica. Would like NSAIDs but no recent kidney function. Has used steroids in the past with great improvement but tried to use minimally due to osteoporosis. Has only been on twice this year in small amounts for breathing issues. Has appointment next month with pain mgmt. REVIEW OF SYSTEMS See HPI PAST MEDICAL HISTORY Diagnosis Date Abdominal pain, right upper quadrant ADD (attention deficit disorder) Seeing psychiatry Anemia, unspecified Asthma Back pain chronic-Seeing Dr. Blankenship Bipolar affective disorder ([facility]) Chronic right shoulder pain Seeing Dr. Molina Closed dislocation of tarsometatarsal (joint) 01/18/2011 COPD (chronic obstructive pulmonary disease) ([facility]) Depressive disorder, not elsewhere classified 03/22/2005 Disorder of bone and cartilage, unspecified 02/09/2008 Distal radius fracture 01/05/2011 Dysuria Fibromyalgia GERD (gastroesophageal reflux disease) IBS (irritable bowel syndrome) Mitral regurgitation Severe Neck pain chronic-takes vicodin for this NSTEMI (non-ST elevated myocardial infarction) ([facility]) Seeing Dr. Hutton Other and unspecified hyperlipidemia Panic disorder without agoraphobia 03/22/2005 PMR (polymyalgia rheumatica) ([facility]) RA (rheumatoid arthritis) ([facility]) Unspecified essential hypertension 03/22/2005 PAST SURGICAL HISTORY Procedure Laterality Date COLONOSCOPY FLX DX W/COLLJ SPEC WHEN PFRMD 01/23/08 Normal COLONOSCOPY FLX DX W/COLLJ SPEC WHEN PFRMD 01/09/2012 Colonoscopy DIAGNOSTIC ARTHROSCOPY SHOULDER +- SYNOVIAL BX Right 04/10/2017 Right shoulder arthroscopy with open SAD and rotator cuff repair EGD TRANSORAL BIOPSY SINGLE/MULTIPLE 01/23/08 Minimal antral gastritis HEART CATHETERIZATION 01/2016 no intervention Partial hysterectomy still has ovaries PAST SURGICAL HISTORY OF 02/2016 total teeth extraction RMVL LENS MATERIAL PHACOFRAGMENTATION ASPIR 12/2010 Cataract Extraction RPR UMBILICAL HRNA 5 YRS/> REDUCIBLE 12/04/2016 Hernia repair, umbilical >5yr SURGICAL ARTHROSCOPY SHOULDER W/ROTATOR CUFF RPR Right 01/01/2018 Right shoulder arthroscopy SAD, Acromioplasty, debridement glenohumeral joint, biceps tenotomy, RCR, superior capsular reconstruction ALLERGIES Amlodipine, Ativan [Lorazepam], Baclofen, Methotrexate, Nadolol, Nexium [Esomeprazole Magnesium], Penicillin G, and Propranolol MEDICATIONS meloxicam (MOBIC) 7.5 mg tablet Take 1 tablet by mouth two times a day. atorvastatin (LIPITOR) 40 mg tablet TAKE ONE TABLET BY MOUTH DAILY AT 9PM AT BEDTIME pregabalin (LYRICA) 75 mg capsule Take 1 capsule by mouth two times a day for 180 days. furosemide (LASIX) 40 mg tablet TAKE ONE TABLET BY MOUTH DAILY AT 9AM Strength: 40 mg ondansetron orally disintegrating (ZOFRAN ODT) 4 mg disintegrating tablet Take 1 tablet by mouth every 8 hours as needed. tiZANidine (ZANAFLEX) 4 mg tablet Take 1 tablet by mouth every 8 hours as needed. busPIRone (BUSPAR) 10 mg tablet Take 1 tablet by mouth three times a day. SUMAtriptan (IMITREX) 50 mg tablet Take 1 tablet (50 mg) by mouth as needed for migraine headache (see administration instructions). START AT ONSET OF HEADACHE. MAY REPEAT DOSE AFTER 2 HOURS. traZODone (DESYREL) 50 mg tablet Take 1 tablet by mouth daily at bedtime. loperamide (IMODIUM) 2 mg cap(s) Take 1 capsule by mouth three times a day as needed. hydrOXYzine HCl (ATARAX) 50 mg tablet Take 1 tablet by mouth every 8 hours as needed for anxiety. escitalopram oxalate (LEXAPRO) 20 mg tablet Take 1 tablet by mouth once daily. lisinopril (ZESTRIL) 40 mg tablet Take 1 tablet by mouth once daily. fluticasone-salmeterol (more content not included)... Normal [facility] [place] 11-16-2023 [facility] Telephone (INTMWS) JOHNLEYDA JORGE ([id number]) 1960 F Date Time Provider Department 11/16/23 VELVET PALACIO During your visit today, we recorded the following information about you: Dewey CaraRADHA reyes 11/16/2023 11:16 AM Signed Pt calling regarding medicines. She says she called son and they report [facility]. She is specifically asking about the trazadone and the zanaflex. In review the office did not [facility]. She will call son again. She also was asking about a new blood pressure machine. She will get this at her 11/25/23 appt with CARPET BINDER. Dali Rice APRN.MARIETTA 11/18/2023 7:20 AM Signed Noted. Will await appointment or patient's return call Dali Rice APRN.Ca Deluca RN 11/22/2023 5:11 PM Signed Dali : Update for appointment on 11/25/2023. Patient calls back to ask about prescriptions below and is confused as to where medications are. Recommended she contact [facility] as prescriptions for tizanidine and trazodone were transferred to them and find out when she should be expecting delivery per below. Contacted [facility] and spoke to Diana: Tizanidine Transferred to [facility] Trazodone Transferred to [facility] Furosemide: current prescription on file has no refills 10/30 prescription not received Buspirone current prescription on file has no refills 10/27 prescription not received. Preferred Pharmacy is [facility] [place] [facility] which is what we have in the system. Asked Diana who requested the transfer and she wasn't certain. RICARDO Osman Joy, APRN.MARIETTA 11/25/2023 7:24 AM Signed So what is needed? Is she wanting a different pharmacy not approved by her insurance? Short dose sent in until mail order is received? Thank you Dali Rice APRN.Cesia Martinez LPN 11/25/2023 8:12 AM Signed Patient has an appointment this afternoon, can discuss at this time. Cesia Steele LPN Allergies As of Date: 11/16/2023 Noted Allergy Reaction AMLODIPINE 06/13/2023 14 - Other: See Comments Comments: scotty and quentin ATIVAN (LORAZEPAM) 08/24/2014 1 - Mental Status Change 11 - Vomiting Comments: mood swings BACLOFEN 06/04/2014 1 - Mental Status Change Comments: angry,mood effect METHOTREXATE 12/20/2011 11 - Vomiting Comments: abdomen pain,vomiting, sbo NADOLOL 02/05/2013 5 - Intolerance Comments: body burning,tingly NEXIUM (ESOMEPRAZOLE MAGNESIUM) 07/15/2015 14 - Other: See Comments Comments: reflux-no relief PENICILLIN G 09/29/2012 8 - GI Upset Comments: patient reports these symptoms after medication was ordered PROPRANOLOL 01/30/2013 5 - Intolerance Comments: fatigue,sleepy Date Reviewed: 11/12/2023 Reviewed by: Mari Martinez APRN.PLATE FILLER - Fully Assessed Reason for Visit: Patient Question [1477] Prescriptions as of 11/25/2023 - meloxicam (MOBIC) 7.5 mg tablet Take 1 tablet by mouth two times a day. - atorvastatin (LIPITOR) 40 mg tablet TAKE ONE TABLET BY MOUTH DAILY AT 9PM AT BEDTIME - pregabalin (LYRICA) 75 mg capsule Take 1 capsule by mouth two times a day for 180 days. - furosemide (LASIX) 40 mg tablet TAKE ONE TABLET BY MOUTH DAILY AT 9AM Strength: 40 mg - ondansetron orally disintegrating (ZOFRAN ODT) 4 mg disintegrating tablet Take 1 tablet by mouth every 8 hours as needed. - tiZANidine (ZANAFLEX) 4 mg tablet Take 1 tablet by mouth every 8 hours as needed. - busPIRone (BUSPAR) 10 mg tablet Take 1 tablet by mouth three times a day. - SUMAtriptan (IMITREX) 50 mg tablet Take 1 tablet (50 mg) by mouth as needed for migraine headache (see administration instructions). START AT ONSET OF HEADACHE. MAY REPEAT DOSE AFTER 2 HOURS. - traZODone (DESYREL) 50 mg tablet Take 1 tablet by mouth daily at bedtime. - loperamide (IMODIUM) 2 mg cap(s) Take 1 capsule by mouth three times a day as needed. - hydrOXYzine HCl (ATARAX) 50 mg tablet Take 1 tablet by mouth every 8 hours as needed for anxiety. - escitalopram oxalate (LEXAPRO) 20 mg tablet Take 1 tablet by mouth once daily. - lisinopril (ZESTRIL) 40 mg tablet Take 1 tablet by mouth once daily. - fluticasone-salmeterol (ADVAIR, WIXELA) 250-50 mcg/dose inhaler Inhale 1 Puff as instructed two times a day. - potassium chloride ER (KLOR-CON) 20 mEq tablet Take 20 mEq by mouth. - albuterol HFA (PROAIR HFA) 90 mcg/actuation inhaler Inhale 2 Puffs as instructed. - nitroglycerin sublingual (NITROQUICK) 0.4 mg SL tablet Dissolve 0.4 mg under the tongue every 5 minutes as needed for chest pain. - acetaminophen 325 mg cap Take by mouth. - Dexlansoprazole (DEXILANT) 60 mg CpDM TAKE ONE CAPSULE BY MOUTH DAILY AT 9AM - fluticasone (FLONASE) 50 mcg/actuation nasal spray INSTILL 2 SPRAYS IN EACH NOSTRIL DAILY RINSE MOUTH AFTER USE (BULK) - hyoscyamine sublingual (LEVSIN SL) 0.125 mg Dissolve 1 tablet under the tongue thre (more content not included)... Normal [facility] CNOVon 11-12-2023 CNOV Office Visit (JANEEN ) LEYDA LOPEZ ([id number]) 1960 F Date Time Provider Department 11/12/23 1:00 PM MARI MARTINEZ During your visit today, we recorded the following information about you: Temperature Pulse Blood pressure Weight 98 degrees 85/minute 174/106 57.6 kg Height 1.461 m Mari Martinez APRN.PLATE FILLER 11/12/2023 12:59 PM Signed Please schedule 6 month follow up with Dr. Obrien or Dr. Mittal to establish care Mari Martinez APRN.CNP 11/12/2023 1:29 PM Signed Chief complaint: Osteoporosis HPI: At [facility]: -10/2022 DEXA: lowest T-score -2.8 to left femoral neck, with decrease to Left femoral neck -Fractures: She reports traumatic fracture to the L foot and a wrist (she does not recall which wrist) years ago -Treatment: none -+ history of GERD, taking OTC antacid -she denies history of parental hip fracture. Mother had OP. -she denies use of antiseizure medications, prison steroids, or hormone replacement therapy -she denies any history of cancer or radiation therapy -reports hx LIU.+ hx CHF. No hx of stroke. -she denies history of kidney stones, + CKD -menarche: age 12 menopause: age [age], s/p hysterectomy Has hx of Fibromyalgia: taking lyrica, elavil, lexapro, and zanaflex Patient reports hx of RA, which is not documented. PAST MEDICAL HISTORY No date: Abdominal pain, right upper quadrant No date: ADD (attention deficit disorder) Comment: Seeing psychiatry No date: Anemia, unspecified No date: Asthma No date: Back pain Comment: chronic-Seeing Dr. Blankenship No date: Bipolar affective disorder ([facility]) No date: Chronic right shoulder pain Comment: Seeing Dr. Molina 01/18/2011: Closed dislocation of tarsometatarsal (joint) No date: COPD (chronic obstructive pulmonary disease) ([facility]) 03/22/2005: Depressive disorder, not elsewhere classified 02/09/2008: Disorder of bone and cartilage, unspecified 01/05/2011: Distal radius fracture No date: Dysuria No date: Fibromyalgia No date: GERD (gastroesophageal reflux disease) No date: IBS (irritable bowel syndrome) No date: Mitral regurgitation Comment: Severe No date: Neck pain Comment: chronic-takes vicodin for this No date: NSTEMI (non-ST elevated myocardial infarction) ([facility]) Comment: Seeing Dr. Hutton No date: Other and unspecified hyperlipidemia 03/22/2005: Panic disorder without agoraphobia No date: PMR (polymyalgia rheumatica) ([facility]) No date: RA (rheumatoid arthritis) ([facility]) 03/22/2005: Unspecified essential hypertension PAST SURGICAL HISTORY 01/23/08: COLONOSCOPY FLX DX W/COLLJ SPEC WHEN PFRMD Comment: Normal 01/09/2012: COLONOSCOPY FLX DX W/COLLJ SPEC WHEN PFRMD Comment: Colonoscopy 04/10/2017: DIAGNOSTIC ARTHROSCOPY SHOULDER +- SYNOVIAL BX; Right Comment: Right shoulder arthroscopy with open SAD and rotator cuff repair 01/23/08: EGD TRANSORAL BIOPSY SINGLE/MULTIPLE Comment: Minimal antral gastritis 01/2016: HEART CATHETERIZATION Comment: no intervention No date: Partial hysterectomy Comment: still has ovaries 02/2016: PAST SURGICAL HISTORY OF Comment: total teeth extraction 12/2010: RMVL LENS MATERIAL PHACOFRAGMENTATION ASPIR Comment: Cataract Extraction 12/04/2016: RPR UMBILICAL HRNA 5 YRS/> REDUCIBLE Comment: Hernia repair, umbilical >5yr 01/01/2018: SURGICAL ARTHROSCOPY SHOULDER W/ROTATOR CUFF RPR; Right Comment: Right shoulder arthroscopy SAD, Acromioplasty, debridement glenohumeral joint, biceps tenotomy, RCR, superior capsular reconstruction Family History Problem Relation Age of Onset COPD Mother Breast Cancer Mother Heart Father DC COPD Father other (Pulmonary fibrosis) Father ALLERGIES Allergen Reactions Amlodipine Other: See Comments shaky and jittery Ativan [Lorazepam] Mental Status Change, Vomiting mood swings Baclofen Mental Status Change angry,mood effect Methotrexate Vomiting abdomen pain,vomiting, sbo Nadolol Intolerance body burning,tingly Nexium [Esomeprazol* Other: See Comments reflux-no relief Penicillin G GI Upset patient reports these symptoms after medication was ordered Propranolol Intolerance fatigue,sleepy SOCIAL HISTORY: She lives in [place]. with 1 daughter. Caffeine: 2-3, 16 ounce bottles of pop per day- decreased intake advised Alcohol: none Smoking: former smoker, quit 15 years ago Exercise: no routine exercise INTERVAL HISTORY She is here for follow up. She is accompanied by her . I recommended treatment with reclast, but she never scheduled. She reports a couple falls since the [facility]. No fractures since the [facility]. No invasive dental work in the last three months and none planned. She is edentulous. No jaw pain. + b/l thigh pain. No recent infections. She is taking Calcium and Vitamin D. Pain is worst later in the day. Sites of pain: b/l cmc joints, entire spine, pain rated 9/10 J (more content not included)... Normal [facility] CNOVon 11-06-2023 CNOV Office Visit (INTMWS ) LEYDA LOPEZ ([id number]) 1960 F Date Time Provider Department 11/06/23 2:20 PM DALI RICE INTMWS During your visit today, we recorded the following information about you: Pulse Respiration Blood pressure Weight 88/minute 16/minute 138/92 58.5 kg Dali Rice APRN.PLATE FILLER 11/06/2023 2:50 PM Signed CC: Patient presents with: Recheck: BP follow up blood pressure HPI Leyda Lopez is a 62 year old female who presents today for blood pressure follow up but feels BP is elevated due to uncontrolled pain. HTN and HLD: Ms. Lopez indicates that she is feeling well and denies any symptoms referable to elevated blood pressure. Specifically denies headache, chest pain, palpitations, dyspnea, and peripheral edema. Patient denies any side effects of her medication(s) and is compliant with their regimen. She does not check BP's generally but checked it a few days ago and says it was 110s/80s but pain was controlled at that time. Leyda denies regular aerobic exercise. She watches her diet for sodium, low fat and low cholesterol most of the time. Last 3 Encounter BP Readings: Date: BP: 11/06/2023 152/100 - 138/92 10/22/2023 162/86 09/27/2023 147/92 Recent xray showing severe thoracic degeneration with possible compression deformities. Has not seen pain mgmt as ordered and is not on any medication to improve bone density but is seeing rheumatology again soon. No new symptoms or concerns but requesting increase in lyrica to help her be more comfortable. REVIEW OF SYSTEMS See HPI PAST MEDICAL HISTORY No date: Abdominal pain, right upper quadrant No date: ADD (attention deficit disorder) Comment: Seeing psychiatry No date: Anemia, unspecified No date: Asthma No date: Back pain Comment: chronic-Seeing Dr. Blankenship No date: Bipolar affective disorder ([facility]) No date: Chronic right shoulder pain Comment: Seeing Dr. Molina 01/18/2011: Closed dislocation of tarsometatarsal (joint) No date: COPD (chronic obstructive pulmonary disease) ([facility]) 03/22/2005: Depressive disorder, not elsewhere classified 02/09/2008: Disorder of bone and cartilage, unspecified 01/05/2011: Distal radius fracture No date: Dysuria No date: Fibromyalgia No date: GERD (gastroesophageal reflux disease) No date: IBS (irritable bowel syndrome) No date: Mitral regurgitation Comment: Severe No date: Neck pain Comment: chronic-takes vicodin for this No date: NSTEMI (non-ST elevated myocardial infarction) ([facility]) Comment: Seeing Dr. Hutton No date: Other and unspecified hyperlipidemia 03/22/2005: Panic disorder without agoraphobia No date: PMR (polymyalgia rheumatica) ([facility]) No date: RA (rheumatoid arthritis) ([facility]) 03/22/2005: Unspecified essential hypertension PAST SURGICAL HISTORY 01/23/08: COLONOSCOPY FLX DX W/COLLJ SPEC WHEN PFRMD Comment: Normal 01/09/2012: COLONOSCOPY FLX DX W/COLLJ SPEC WHEN PFRMD Comment: Colonoscopy 04/10/2017: DIAGNOSTIC ARTHROSCOPY SHOULDER +- SYNOVIAL BX; Right Comment: Right shoulder arthroscopy with open SAD and rotator cuff repair 01/23/08: EGD TRANSORAL BIOPSY SINGLE/MULTIPLE Comment: Minimal antral gastritis 01/2016: HEART CATHETERIZATION Comment: no intervention No date: Partial hysterectomy Comment: still has ovaries 02/2016: PAST SURGICAL HISTORY OF Comment: total teeth extraction 12/2010: RMVL LENS MATERIAL PHACOFRAGMENTATION ASPIR Comment: Cataract Extraction 12/04/2016: RPR UMBILICAL HRNA 5 YRS/> REDUCIBLE Comment: Hernia repair, umbilical >5yr 01/01/2018: SURGICAL ARTHROSCOPY SHOULDER W/ROTATOR CUFF RPR; Right Comment: Right shoulder arthroscopy SAD, Acromioplasty, debridement glenohumeral joint, biceps tenotomy, RCR, superior capsular reconstruction ALLERGIES Amlodipine, Ativan [Lorazepam], Baclofen, Methotrexate, Nadolol, Nexium [Esomeprazole Magnesium], Penicillin G, and Propranolol MEDICATIONS furosemide (LASIX) 40 mg tablet TAKE ONE TABLET BY MOUTH DAILY AT 9AM Strength: 40 mg lisinopril (ZESTRIL) 40 mg tablet Take 1 tablet by mouth once daily. ondansetron orally disintegrating (ZOFRAN ODT) 4 mg disintegrating tablet Take 1 tablet by mouth every 8 hours as needed. tiZANidine (ZANAFLEX) 4 mg tablet Take 1 tablet by mouth every 8 hours as needed. busPIRone (BUSPAR) 10 mg tablet Take 1 tablet by mouth three times a day. SUMAtriptan (IMITREX) 50 mg tablet Take 1 tablet (50 mg) by mouth as needed for migraine headache (see administration instructions). START AT ONSET OF HEADACHE. MAY REPEAT DOSE AFTER 2 HOURS. traZODone (DESYREL) 50 mg tablet Take 1 tablet by mouth daily at bedtime. meloxicam (MOBIC) 7.5 mg tablet Take 1 tablet by mouth two times a day. loperamide (IMODIUM) 2 mg cap(s) Take 1 capsule by mouth three times a day as needed. hydrOXYzine HCl (ATARAX) 50 mg tablet Take 1 tablet by mouth every 8 hours as (more content not included)... Normal [facility] LEYDA [facility]OPE[facility] ([id number]) 1960 F Date Time Provider Department 11/06/23 DALI RICE During your visit today, we recorded the following information about you: Dali Rice APRN.CNP 11/06/2023 2:[address] of spine ordered to further evaluate thoracic vertebrae and patient needs to schedule with pain mgmt as ordered in visit. Thank you Dali Rice APRN.PLATE FILLER Allergies As of Date: 11/06/2023 Noted Allergy Reaction AMLODIPINE 06/13/2023 14 - Other: See Comments Comments: shaky and jittery ATIVAN (LORAZEPAM) 08/24/2014 1 - Mental Status Change 11 - Vomiting Comments: mood swings BACLOFEN 06/04/2014 1 - Mental Status Change Comments: angry,mood effect METHOTREXATE 12/20/2011 11 - Vomiting Comments: abdomen pain,vomiting, sbo NADOLOL 02/05/2013 5 - Intolerance Comments: body burning,tingly NEXIUM (ESOMEPRAZOLE MAGNESIUM) 07/15/2015 14 - Other: See Comments Comments: reflux-no relief PENICILLIN G 09/29/2012 8 - GI Upset Comments: patient reports these symptoms after medication was ordered PROPRANOLOL 01/30/2013 5 - Intolerance Comments: fatigue,sleepy Date Reviewed: 11/06/2023 Reviewed by: Michelle Beckham MA - Fully Assessed Reason for Visit: Orders [681] Prescriptions as of 07/13/2024 - Nebulizer Accessories kit 1 each every 4 hours as needed. Patient in need of mask and medication chamber for nebulizer - pregabalin (LYRICA) 150 mg capsule Take 1 capsule by mouth two times a day for 90 days. - hydrOXYzine HCl (ATARAX) 50 mg tablet Take 1 tablet by mouth every 8 hours as needed for anxiety. - ipratropium (ATROVENT) 0.02 % nebulizer solution Use 2.5 mL via nebulizer four times a day as needed for wheezing/shortness of breath. Use over 5-15minutes. Dx:[id number] - Nebulizer Accessories kit 1 each once daily. - albuterol (PROVENTIL) 2.5 mg /3 mL (0.083 %) nebulizer solution Use 3 mL via nebulizer every 4 hours as needed for wheezing/shortness of breath. - Nebulizer and Compressor For Neb 1 each every 4 hours as needed. - busPIRone (BUSPAR) 10 mg tablet Take 1 tablet by mouth three times a day. - loperamide (IMODIUM) 2 mg cap(s) Take 1 capsule by mouth three times a day as needed. - meloxicam (MOBIC) 15 mg tablet Take 1 tablet by mouth once daily. - SUMAtriptan (IMITREX) 50 mg tablet Take 1 tablet by mouth as needed for migraine headache (see administration instructions). START AT ONSET OF HEADACHE. MAY REPEAT DOSE AFTER 2 HOURS. - traZODone (DESYREL) 50 mg tablet Take 1 tablet by mouth daily at bedtime. - Blood Pressure Monitor 1 Each as needed. - OXYGEN, HOME THERAPY, 2 L/min by Nasal Cannula route as directed. At night AND 5 L/min when mobile - predniSONE (DELTASONE) 20 mg tablet Please take the pill for 7 days followed by taking half the pill for another 7 days and stop. - tiZANidine (ZANAFLEX) 4 mg tablet Take 1 tablet by mouth every 8 hours as needed. - furosemide (LASIX) 40 mg tablet Take 1 tablet by mouth once daily. - lisinopril (ZESTRIL) 40 mg tablet Take 1 tablet by mouth once daily. - escitalopram oxalate (LEXAPRO) 20 mg tablet Take 1 tablet by mouth once daily. - atorvastatin (LIPITOR) 40 mg tablet TAKE ONE TABLET BY MOUTH DAILY AT 9PM AT BEDTIME - amitriptyline 150 mg tablet Take 1 tablet by mouth daily at bedtime. - ondansetron orally disintegrating (ZOFRAN ODT) 4 mg disintegrating tablet Take 1 tablet by mouth every 8 hours as needed. - fluticasone-salmeterol (ADVAIR, WIXELA) 250-50 mcg/dose inhaler INHALE 1 PUFF BY MOUTH DIRECTED TWICE DAILY - potassium chloride ER (KLOR-CON) 20 mEq tablet Take 1 tablet by mouth once daily. - nitroglycerin sublingual (NITROQUICK) 0.4 mg SL tablet Dissolve 0.4 mg under the tongue every 5 minutes as needed for chest pain. - acetaminophen 325 mg cap Take by mouth. - Dexlansoprazole (DEXILANT) 60 mg CpDM TAKE ONE CAPSULE BY MOUTH DAILY AT 9AM - hyoscyamine sublingual (LEVSIN SL) 0.125 mg Dissolve 1 tablet under the tongue three times daily as needed. - Cholecalciferol, Vitamin D3, 2,000 unit tab Take 2 tablets by mouth once daily. Meds Comments as of 07/05/2023: Patient is not sure what antibiotic she was place on in hospital Problem List As Of Date 11/06/2023 Noted Resolved Essential hypertension [I10] 03/22/2005 Moderate episode of recurrent major depressive *03/22/2005 PANIC DISORDER WITHOUT AGORAPHOBIA [F41.0] 03/22/2005 Asthma [J45.909] 03/22/2005 Hyperlipidemia [E78.5] ANEMIA BLOOD LOSS CHRONIC [D50.0] 12/23/2007 12/01/2013 BONE AND CARTILAGE DIS NOS [M89.9, M94.9] 02/09/2008 CRI (chronic renal insufficiency) (HCC) [N18.9] 09/30/2009 12/01/2013 Bipolar affective [F31.9] 04/27/2010 05/21/2018 COPD (chronic obstructive pulmonary disease) [J*10/04/2010 Hypokalemia [E87.6] 10/04/2010 12/01/2013 Left Plantar fasciitis [M72.2] 10/04/2010 12/01/2013 (more content not included)... Normal [facility] 10-28-2023 CNPN Telephone (INTMWS) LEYDA LOPEZ ([id number]) 1960 F Date Time Provider Department 10/28/23 VELVET PALACIO INTMWS During your visit today, we recorded the following information about you: Kellen Alexandra LPN 10/28/2023 1:13 PM Signed Patient calling she had appt with Jeffry VEGA on 10/22/2023, she had told her to increase her Buspar to 10 mg three times daily. Patient said a new rx was not sent to the pharmacy. Now she is out of the medication and can not get it refilled. Office notes do not say to increase her dose. Patient asking for rx to help with her back feels like it is in knots, her anxiety is worse. Patient uses [facility] for her pharmacy. Please advise Dali Rice APRN.MARIETTA 10/28/2023 3:51 PM Signed Increased dose of buspar sent. See other TE as well. Thank you Dali Rice APRN.PLATE FILLER Michelle Beckham MA 10/28/2023 3:56 PM Signed Patient notified. Allergies As of Date: 10/28/2023 Noted Allergy Reaction AMLODIPINE 06/13/2023 14 - Other: See Comments Comments: shaky and jittery ATIVAN (LORAZEPAM) 08/24/2014 1 - Mental Status Change 11 - Vomiting Comments: mood swings BACLOFEN 06/04/2014 1 - Mental Status Change Comments: angry,mood effect METHOTREXATE 12/20/2011 11 - Vomiting Comments: abdomen pain,vomiting, sbo NADOLOL 02/05/2013 5 - Intolerance Comments: body burning,tingly NEXIUM (ESOMEPRAZOLE MAGNESIUM) 07/15/2015 14 - Other: See Comments Comments: reflux-no relief PENICILLIN G 09/29/2012 8 - GI Upset Comments: patient reports these symptoms after medication was ordered PROPRANOLOL 01/30/2013 5 - Intolerance Comments: fatigue,sleepy Date Reviewed: 09/27/2023 Reviewed by: Kush Guthrie APRN.PLATE FILLER - Fully Assessed Reason for Visit: Medication Request [138] Order(s):busPIRone (BUSPAR) 10 mg tabletTake 1 tablet by mouth three times a day.Disp: 90 tabletRfl: 1 Prescriptions as of 10/28/2023 - tiZANidine (ZANAFLEX) 4 mg tablet Take 1 tablet by mouth every 8 hours as needed. - busPIRone (BUSPAR) 10 mg tablet Take 1 tablet by mouth three times a day. - SUMAtriptan (IMITREX) 50 mg tablet Take 1 tablet (50 mg) by mouth as needed for migraine headache (see administration instructions). START AT ONSET OF HEADACHE. MAY REPEAT DOSE AFTER 2 HOURS. - traZODone (DESYREL) 50 mg tablet Take 1 tablet by mouth daily at bedtime. - meloxicam (MOBIC) 7.5 mg tablet Take 1 tablet by mouth two times a day. - loperamide (IMODIUM) 2 mg cap(s) Take 1 capsule by mouth three times a day as needed. - hydrOXYzine HCl (ATARAX) 50 mg tablet Take 1 tablet by mouth every 8 hours as needed for anxiety. - escitalopram oxalate (LEXAPRO) 20 mg tablet Take 1 tablet by mouth once daily. - lisinopril (ZESTRIL) 40 mg tablet Take 1 tablet by mouth once daily. - atorvastatin (LIPITOR) 40 mg tablet TAKE ONE TABLET BY MOUTH DAILY AT 9PM AT BEDTIME - fluticasone-salmeterol (ADVAIR, WIXELA) 250-50 mcg/dose inhaler Inhale 1 Puff as instructed two times a day. - pregabalin (LYRICA) 50 mg capsule Take 1 capsule by mouth two times a day for 180 days. - potassium chloride ER (KLOR-CON) 20 mEq tablet Take 20 mEq by mouth. - albuterol HFA (PROAIR HFA) 90 mcg/actuation inhaler Inhale 2 Puffs as instructed. - nitroglycerin sublingual (NITROQUICK) 0.4 mg SL tablet Dissolve 0.4 mg under the tongue every 5 minutes as needed for chest pain. - acetaminophen 325 mg cap Take by mouth. - Dexlansoprazole (DEXILANT) 60 mg CpDM TAKE ONE CAPSULE BY MOUTH DAILY AT 9AM - ondansetron orally disintegrating (ZOFRAN ODT) 4 mg disintegrating tablet Take 1 tablet by mouth every 8 hours as needed. - fluticasone (FLONASE) 50 mcg/actuation nasal spray INSTILL 2 SPRAYS IN EACH NOSTRIL DAILY RINSE MOUTH AFTER USE (BULK) - furosemide (LASIX) 40 mg tablet TAKE ONE TABLET BY MOUTH DAILY AT 9AM - hyoscyamine sublingual (LEVSIN SL) 0.125 mg Dissolve 1 tablet under the tongue three times daily as needed. - ipratropium (ATROVENT) 0.02 % nebulizer solution Use 2.5 mL via nebulizer four times daily as needed for Wheezing/Shortness of Breath. Use over 5-15minutes. Dx:J45.40 - Cholecalciferol, Vitamin D3, 2,000 unit tab Take 2 tablets by mouth once daily. Meds Comments as of 07/05/2023: Patient is not sure what antibiotic she was place on in hospital Problem List As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 thoracic kyphosis. Apparent mild compression deformities of T6-T9 vertebral bodies, which appears similar to prior. Severe multilevel disc space narrowing of the thoracic spine. Multilevel endplate osteophytes and sclerosis. Mild thoracic dextroscoliosis. Bilateral lower lung zone atelectasis or scarring. Partially imaged metallic suture anchor overlying the right proximal humerus. IMPRESSION: Prominent thoracic kyphosis, mild dextroscoliosis, and severe thoracic spine degenerative changes. Suspected mild T6-T9 compression deformities which appear similar to the prior from 2022. However exam is limited due to osteopenia and superimposed structures, and CT thoracic spine without contrast may be performed for further evaluation as clinically warranted. Regulatory Intern: PSCB Transcribe Date/Time: Oct 26 2023 9:20A Dictated by : FANNY RICHTER MD This examination was interpreted and the report reviewed and electronically signed by: FANNY RICHTER MD on Oct 26 2023 9:25AM EST [id number] Normal [facility] XR Thoracic spine AP and Lat eral and Swimmerson 10-22-2023 [facility] (ANTONIO) LEYDA LOPEZ ([id number]) 1960 F Date Time Provider Department 10/07/23 HANNAH BURR During your visit today, we recorded the following information about you: Michelle Caban LPN 10/07/2023 3:53 PM Signed Patient was scheduled for in person [facility] appt at 3:40pm today. Patient did not check in for appt, called patient at 3:51pm to see if they were planning on coming. Left voicemail with appt information and [facility] phone number. Michelle Caban LPN . Nakita Santiago MA 10/15/2023 1:50 PM Signed Nasrin from [facility] called and states patient was no show for PAT and they have left her 5 messages and has not returned any of their calls. Patient is scheduled for surgery next Sunday 10/22. Nakita Santiago MA 10/15/2023 1:55 PM Signed Left message for patient to call office. Donna Pickering MA 10/16/2023 3:49 PM Signed I called and left a detailed message on the patients voicemail that she needs to contact [phone] to get her pre admission testing set up. Advised patient surgery would be cancelled if she did not have pre admission testing completed. Also attempted to reach significant other, Trey, voicemail was full and I could not leave a message. Nakita Santiago MA 10/17/2023 4:30 PM Signed Patient returned call. Patient canceled her surgery and will call to reschedule. Allergies As of Date: 10/07/2023 Noted Allergy Reaction AMLODIPINE 06/13/2023 14 - Other: See Comments Comments: shaky and jittery ATIVAN (LORAZEPAM) 08/24/2014 1 - Mental Status Change 11 - Vomiting Comments: mood swings BACLOFEN 06/04/2014 1 - Mental Status Change Comments: angry,mood effect METHOTREXATE 12/20/2011 11 - Vomiting Comments: abdomen pain,vomiting, sbo NADOLOL 02/05/2013 5 - Intolerance Comments: body burning,tingly NEXIUM (ESOMEPRAZOLE MAGNESIUM) 07/15/2015 14 - Other: See Comments Comments: reflux-no relief PENICILLIN G 09/29/2012 8 - GI Upset Comments: patient reports these symptoms after medication was ordered PROPRANOLOL 01/30/2013 5 - Intolerance Comments: fatigue,sleepy Date Reviewed: 09/27/2023 Reviewed by: Kush Gutrhie APRN.PLATE FILLER - Fully Assessed Reason for Visit: [facility] appointment [Other] Prescriptions as of 10/17/2023 - busPIRone (BUSPAR) 5 mg tablet Take 1 tablet by mouth three times a day. - loperamide (IMODIUM) 2 mg cap(s) Take 1 capsule by mouth three times a day as needed. - hydrOXYzine HCl (ATARAX) 50 mg tablet Take 1 tablet by mouth every 8 hours as needed for anxiety. - SUMAtriptan (IMITREX) 50 mg tablet Take 1 tablet (50 mg) by mouth as needed for migraine headache (see administration instructions). START AT ONSET OF HEADACHE. MAY REPEAT DOSE AFTER 2 HOURS. - escitalopram oxalate (LEXAPRO) 20 mg tablet Take 1 tablet by mouth once daily. - amitriptyline (ELAVIL) 100 mg tablet Take 1 tablet by mouth daily at bedtime. - lisinopril (ZESTRIL) 40 mg tablet Take 1 tablet by mouth once daily. - atorvastatin (LIPITOR) 40 mg tablet TAKE ONE TABLET BY MOUTH DAILY AT 9PM AT BEDTIME - fluticasone-salmeterol (ADVAIR, WIXELA) 250-50 mcg/dose inhaler Inhale 1 Puff as instructed two times a day. - pregabalin (LYRICA) 50 mg capsule Take 1 capsule by mouth two times a day for 180 days. - potassium chloride ER (KLOR-CON) 20 mEq tablet Take 20 mEq by mouth. - albuterol HFA (PROAIR HFA) 90 mcg/actuation inhaler Inhale 2 Puffs as instructed. - nitroglycerin sublingual (NITROQUICK) 0.4 mg SL tablet Dissolve 0.4 mg under the tongue every 5 minutes as needed for chest pain. - acetaminophen 325 mg cap Take by mouth. - Dexlansoprazole (DEXILANT) 60 mg CpDM TAKE ONE CAPSULE BY MOUTH DAILY AT 9AM - ondansetron orally disintegrating (ZOFRAN ODT) 4 mg disintegrating tablet Take 1 tablet by mouth every 8 hours as needed. - fluticasone (FLONASE) 50 mcg/actuation nasal spray INSTILL 2 SPRAYS IN EACH NOSTRIL DAILY RINSE MOUTH AFTER USE (BULK) - furosemide (LASIX) 40 mg tablet TAKE ONE TABLET BY MOUTH DAILY AT 9AM - tiZANidine (ZANAFLEX) 4 mg tablet TAKE ONE TABLET BY MOUTH AT BEDTIME NEEDED FOR MUSCLE SPASMS (VIAL) - hyoscyamine sublingual (LEVSIN SL) 0.125 mg Dissolve 1 tablet under the tongue three times daily as needed. - ipratropium (ATROVENT) 0.02 % nebulizer solution Use 2.5 mL via nebulizer four times daily as needed for Wheezing/Shortness of Breath. Use over 5-15minutes. Dx:J45.40 - Cholecalciferol, Vitamin D3, 2,000 unit tab Take 2 tablets by mouth once daily. Meds Comments as of 07/05/2023: Patient is not sure what antibiotic she was place on in hospital Problem List As Of Date 10/07/2023 Noted Resolved Essential hypertension [I10] 03/22/2005 Moderate episode of recurrent major depressive *03/22/2005 PANIC DISORDER WITHOUT AGORAPHOBIA [F41.0] 03/22/2005 Asthma [J45.909] 03/22/2005 Hyperlipidemia [E78.5] ANEMIA BLOOD LOSS C (more content not included)... Normal [facility] Wound Cultureon 09-29-2023 Copy of report sent to Infection Control Printer [id number] 09/29/23 [id number] KATLIN. Meth. resistant Staph. aureus Amount Growth 2+ mecA Testing not performed Meth. resistant Staph. aureus: REACTION cefOXitin Susc Islt POS Doxycycline Islt FLO <=0.5 S Clindamycin.induced Susc Islt NEG Erythromycin Islt FLO >=8 R Gentamicin Islt FLO <=0.5 S Linezolid Islt FLO 2 S Oxacillin Susc Islt >=4 R Tetracycline Islt FLO <=1 S TMP SMX Islt FLO <=10 S Vancomycin Islt FLO 1 S Normal [facility] Comment on above: Performed By: #### M 100.2000, M100.3000 ####[facility] [id number] [place], [place], [id number] CNOVon 09-27-2023 CNOV Office Visit (UCWSTR ) JOHNLEYDA ([id number]) 1960 F Date Time Provider Department 09/27/23 11:00 AM KUSH GUTHRIE [facility] During your visit today, we recorded the following information about you: Temperature Pulse Respiration Blood pressure 97.6 degrees 73/minute 20/minute 147/92 Weight 57 kg Kush Guthrie, SCRUBBER SYSTEM ATTENDANT.PLATE FILLER 09/27/2023 11:27 AM Signed Subjective HPI Nontoxic-appearing female presents urgent care accompanied by family member. Chief complaint nasal pain. Duration of symptoms 2 days. Associated symptoms enlarging left nares abscess. Presents today for evaluation. Rates pain 9 out of 10. States it is a severe headache. No other concerns. .Patient presents with: Derm Problem: Pt has area under Left nostril enlarged,redness, some drainage, severe headache, x 2 days PAST MEDICAL HISTORY Diagnosis Date Abdominal pain, right upper quadrant ADD (attention deficit disorder) Seeing psychiatry Anemia, unspecified Asthma Back pain chronic-Seeing Dr. Blankenship Bipolar affective disorder ([facility]) Chronic right shoulder pain Seeing Dr. Molina Closed dislocation of tarsometatarsal (joint) 01/18/2011 COPD (chronic obstructive pulmonary disease) ([facility]) Depressive disorder, not elsewhere classified 03/22/2005 Disorder of bone and cartilage, unspecified 02/09/2008 Distal radius fracture 01/05/2011 Dysuria Fibromyalgia GERD (gastroesophageal reflux disease) IBS (irritable bowel syndrome) Mitral regurgitation Severe Neck pain chronic-takes vicodin for this NSTEMI (non-ST elevated myocardial infarction) ([facility]) Seeing Dr. Hutton Other and unspecified hyperlipidemia Panic disorder without agoraphobia 03/22/2005 PMR (polymyalgia rheumatica) ([facility]) RA (rheumatoid arthritis) ([facility]) Unspecified essential hypertension 03/22/2005 PAST SURGICAL HISTORY Procedure Laterality Date COLONOSCOPY FLX DX W/COLLJ SPEC WHEN PFRMD 01/23/08 Normal COLONOSCOPY FLX DX W/COLLJ SPEC WHEN PFRMD 01/09/2012 Colonoscopy DIAGNOSTIC ARTHROSCOPY SHOULDER +- SYNOVIAL BX Right 04/10/2017 Right shoulder arthroscopy with open SAD and rotator cuff repair EGD TRANSORAL BIOPSY SINGLE/MULTIPLE 01/23/08 Minimal antral gastritis HEART CATHETERIZATION 01/2016 no intervention Partial hysterectomy still has ovaries PAST SURGICAL HISTORY OF 02/2016 total teeth extraction RMVL LENS MATERIAL PHACOFRAGMENTATION ASPIR 12/2010 Cataract Extraction RPR UMBILICAL HRNA 5 YRS/> REDUCIBLE 12/04/2016 Hernia repair, umbilical >5yr SURGICAL ARTHROSCOPY SHOULDER W/ROTATOR CUFF RPR Right 01/01/2018 Right shoulder arthroscopy SAD, Acromioplasty, debridement glenohumeral joint, biceps tenotomy, RCR, superior capsular reconstruction ALLERGIES Amlodipine, Ativan [Lorazepam], Baclofen, Methotrexate, Nadolol, Nexium [Esomeprazole Magnesium], Penicillin G, and Propranolol MEDICATIONS hydrOXYzine HCl (ATARAX) 50 mg tablet Take 1 tablet by mouth every 8 hours as needed for anxiety. SUMAtriptan (IMITREX) 50 mg tablet Take 1 tablet (50 mg) by mouth as needed for migraine headache (see administration instructions). START AT ONSET OF HEADACHE. MAY REPEAT DOSE AFTER 2 HOURS. meloxicam (MOBIC) 7.5 mg tablet Take 1 tablet by mouth two times a day. escitalopram oxalate (LEXAPRO) 20 mg tablet Take 1 tablet by mouth once daily. busPIRone (BUSPAR) 5 mg tablet Take 1 tablet by mouth three times a day. amitriptyline (ELAVIL) 100 mg tablet Take 1 tablet by mouth daily at bedtime. lisinopril (ZESTRIL) 40 mg tablet Take 1 tablet by mouth once daily. atorvastatin (LIPITOR) 40 mg tablet TAKE ONE TABLET BY MOUTH DAILY AT 9PM AT BEDTIME fluticasone-salmeterol (ADVAIR, WIXELA) 250-50 mcg/dose inhaler Inhale 1 Puff as instructed two times a day. pregabalin (LYRICA) 50 mg capsule Take 1 capsule by mouth two times a day for 180 days. potassium chloride ER (KLOR-CON) 20 mEq tablet Take 20 mEq by mouth. albuterol HFA (PROAIR HFA) 90 mcg/actuation inhaler Inhale 2 Puffs as instructed. nitroglycerin sublingual (NITROQUICK) 0.4 mg SL tablet Dissolve 0.4 mg under the tongue every 5 minutes as needed for chest pain. acetaminophen 325 mg cap Take by mouth. Dexlansoprazole (DEXILANT) 60 mg CpDM TAKE ONE CAPSULE BY MOUTH DAILY AT 9AM ondansetron orally disintegrating (ZOFRAN ODT) 4 mg disintegrating tablet Take 1 tablet by mouth every 8 hours as needed. fluticasone (FLONASE) 50 mcg/actuation nasal spray INSTILL 2 SPRAYS IN EACH NOSTRIL DAILY RINSE MOUTH AFTER USE (BULK) furosemide (LASIX) 40 mg tablet TAKE ONE TABLET BY MOUTH DAILY AT 9AM (Patient taking differently: Take 40 mg by mouth two times a day.) loperamide (IMODIUM) 2 mg cap(s) Take 1 capsule by mouth three times daily as needed. tiZANidine (ZANAFLEX) 4 mg tablet TAKE ONE TABLET BY MOUTH AT BEDTIME NEEDED FOR MUSCLE SPASMS (VIAL) hyoscyamine sublingual (LE (more content not included)... Normal [facility] Emergency Department Summary on 09-27-2023 Emergency Department Summary [facility] Medical Records Department [address] [place] [address] Emergency Department Summary 09/27/23 MR#: [id number] Acct: [id number] Name: LEYDA LOPEZ Rep #: [id number] : 1960 62 From: Zurdo Howard DO PCP: DALI RICE [employer] [facility]INDER-C Status:DEP ER Location: ED HPI History of Present Illness Chief Complaint: Other, Pain/Inj Informant: patient Narrative Narrative: 62-year-old female presented to the emergency room with swelling and pain to open in the left naris. Patient wears home O2 and believes this has caused an issue at the opening to her left naris. She states it began like a pimple but has grown rapidly and become more painful. She states she supposed to be wearing 6 L nasal cannula but she is also 98% on room air and not having any difficulty breathing. Patient denies any history of prior abscesses. She states she went to urgent care was sent to the hospital. [facility] Medical History Anxiety Depression Kidney disease GERD (gastroesophageal reflux disease) Former smoker On home oxygen therapy Irregular heart beat Myocardial infarct Migraines Fibromyalgia NSTEMI (non-ST elevated myocardial infarction) Hypertension Rheumatoid arthritis Bipolar 1 disorder COPD (chronic obstructive pulmonary disease) COPD (chronic obstructive pulmonary disease) Home Medications ???Medication ???Instructions ???Recorded ???Last Taken ???Type albuterol sulfate 90 mcg/actuation 2 puff inhalation Q4H PRN PRN Sob 07/26/14 06/06/17 History aerosol inhaler (ProAir HFA) /Or Wheezing nitroglycerin 0.4 mg sublingual 0.4 mg sublingual PRN PRN CHEST 06/04/17 Unknown History tablet PAIN amitriptyline 100 mg tablet 100 mg PO QHS depresssion 10/10/22 Unknown History meloxicam 7.5 mg tablet 7.5 mg PO DAILY pain 10/10/22 Unknown History sumatriptan succinate 50 mg tablet 50 mg PO PRN PRN migraine headache 10/10/22 Unknown History ondansetron 4 mg disintegrating 4 mg PO Q8H PRN PRN Nausea #14 tabs 11/14/22 Unknown Rx tablet atorvastatin 40 mg tablet 40 mg PO QHS Cholesterol 05/11/23 Unknown History buspirone 5 mg tablet 5 mg PO TID Anxiety 05/11/23 Unknown History dexlansoprazole 60 mg 60 mg PO DAILY GERD 05/11/23 Unknown History capsule,biphase delayed release escitalopram oxalate 20 mg tablet 20 mg PO DAILY depression 05/11/23 Unknown History fluticasone propionate 50 2 spray intranasal DAILY allergies 05/11/23 Unknown History mcg/actuation nasal spray,suspension hydroxyzine HCl 50 mg tablet 50 mg PO TID PRN Anxiety 05/11/23 Unknown History pregabalin 25 mg capsule 25 mg PO BID Nerve pain 05/11/23 Unknown History tizanidine 4 mg tablet 4 mg PO QHS PRN PRN muscle spasm 05/11/23 Unknown History acetaminophen 325 mg tablet 1,000 mg (3.0769 x 325 mg) PO Q8H 05/20/23 Unknown Rx PRN PRN fever/pain 1-10 #0 tabs lisinopril 40 mg tablet 40 mg PO DAILY blood pressure 06/04/23 Unknown History furosemide 40 mg tablet 40 mg PO BIDCM water pill #120 tabs 06/06/23 Unknown Rx guaifenesin 1,200 mg tablet, 1,200 mg PO BID #20 tabs 06/06/23 Unknown Rx extended release 12 hr (Mucus Relief ER) potassium chloride 20 mEq 20 meq PO DAILYCM #30 tabs 06/06/23 Unknown Rx tablet,extended release(part/cryst) prednisone 20 mg tablet 20 mg PO BID #14 tabs 06/06/23 Unknown Rx oxycodone-acetaminophen 5 mg-325 1 tab PO Q6H PRN pain 3 days #12 09/27/23 Unknown Rx mg tablet (Percocet) tabs sulfamethoxazole 800 1 tab PO BID #14 TABLETS 09/27/23 Unknown Rx mg-trimethoprim 160 mg tablet Allergy/AdvReac Type Severity Reaction Status Date / Time methotrexate Allergy Other Verified 09/27/23 11:30 nadolol Allergy Unknown Verified 09/27/23 11:30 prochlorperazine Allergy PT UNABLE Verified 09/27/23 11:30 TO RESPOND-NEEDS F/U baclofen AdvReac Other Verified 09/27/23 11:30 lorazepam (From Ativan) AdvReac Nausea Verified 09/27/23 11:30 propranolol AdvReac Other Verified 09/27/23 11:30 Social History Smoking Status: Former smoker ROS ROS ED Constitutional Constitutional ED: Denies chills or weight loss Eyes Eyes: Denies change in vision or diplopia ENT ENT ED: Denies ear pain, rhinorrhea or sore throat Cardiovascular Cardiovascular: Denies chest pain, orthopnea, palpitations or racing heartbeat Respiratory/Chest Respiratory/Chest: Denies cough, dyspnea or orthopnea Gastrointestinal Gastrointestinal: Denies abdominal pain, diarrhea, nausea or vomiting Genitourinary Genitourinary ED: Denies dysuria, hematuria or urinary frequency Musculoskeletal Musculoskeletal: Denies arthralgias or myalgias Integumentary Reports abscess; Denies rash Neurologic Neurologic: Denies headache(s) or weaknes (more content not included)... Normal [facility] Gram Stainon 09-27-2023 GS Gram Stain 3+ Red Blood Cells 1+ White Blood Cells Rare Gram negative rods Normal [facility] Comment on above: Performed By: #### M 100.2000, M100.3000 ####[facility] [id number] [place], [address] CNCOon 09-18-2023 CNCO Letter Text Normal [facility] CNPNon 09-17-2023 CNPN Telephone (ORMDNA) JOHNLEYDA ([id number]) 1960 F Date Time Provider Department 09/17/23 SEBAS MOLINA During your visit today, we recorded the following information about you: Donna Pickering MA 09/17/2023 8:58 AM Signed Surgical request completed for right thumb CMC arthroplasty with tendon transfer and suspension at [facility] on 10/23/2023. Post op appointments have been scheduled. Please sign OT order. Vickie Barth PA-C 09/17/2023 9:43 AM Signed OT order signed. Donna Pickering MA 09/17/2023 9:59 AM Signed Please schedule OT for patient to follow post op appointment with Vickie Barth PA-C at [place] on 11/05/2023. I will mail out with post op visits. Thank you. Donna Pickering MA 09/18/2023 12:54 PM Signed Surgery has been scheduled as requested. Post op appointments have been scheduled and mailed to the patient. Allergies As of Date: 09/17/2023 Noted Allergy Reaction AMLODIPINE 06/13/2023 14 - Other: See Comments Comments: kale ATIVAN (LORAZEPAM) 08/24/2014 1 - Mental Status Change 11 - Vomiting Comments: mood swings BACLOFEN 06/04/2014 1 - Mental Status Change Comments: angry,mood effect METHOTREXATE 12/20/2011 11 - Vomiting Comments: abdomen pain,vomiting, sbo NADOLOL 02/05/2013 5 - Intolerance Comments: body burning,tingly NEXIUM (ESOMEPRAZOLE MAGNESIUM) 07/15/2015 14 - Other: See Comments Comments: reflux-no relief PENICILLIN G 09/29/2012 8 - GI Upset Comments: patient reports these symptoms after medication was ordered PROPRANOLOL 01/30/2013 5 - Intolerance Comments: fatigue,sleepy Date Reviewed: 09/02/2023 Reviewed by: Sebas Molina MD - Fully Assessed Reason for Visit: Schedule Surgery [1330] OT EVAL [748] Primary Visit Diagnosis:Primary osteoarthritis of first carpometacarpal joint of right hand [M18.11] Order(s):SURGICAL REQUEST - ELECTIVE (10/2019) [8080482] Order #: [id number]: 1 CONSULT TO BENCH TECHNICIAN [[id number]] Order #: [id number]: 1 FUTURE Prescriptions as of 09/18/2023 - meloxicam (MOBIC) 7.5 mg tablet Take 1 tablet by mouth two times a day. - SUMAtriptan (IMITREX) 50 mg tablet Take 1 tablet (50 mg) by mouth as needed for migraine headache (see administration instructions). START AT ONSET OF HEADACHE. MAY REPEAT DOSE AFTER 2 HOURS. - escitalopram oxalate (LEXAPRO) 20 mg tablet Take 1 tablet by mouth once daily. - busPIRone (BUSPAR) 5 mg tablet Take 1 tablet by mouth three times a day. - amitriptyline (ELAVIL) 100 mg tablet Take 1 tablet by mouth daily at bedtime. - lisinopril (ZESTRIL) 40 mg tablet Take 1 tablet by mouth once daily. - atorvastatin (LIPITOR) 40 mg tablet TAKE ONE TABLET BY MOUTH DAILY AT 9PM AT BEDTIME - fluticasone-salmeterol (ADVAIR, WIXELA) 250-50 mcg/dose inhaler Inhale 1 Puff as instructed two times a day. - pregabalin (LYRICA) 50 mg capsule Take 1 capsule by mouth two times a day for 180 days. - amoxicillin-clavulanate potassium (AUGMENTIN) 875-125 mg per tablet Take 1 tablet by mouth every 12 hours. - potassium chloride ER (KLOR-CON) 20 mEq tablet Take 20 mEq by mouth. - predniSONE (DELTASONE) 20 mg tablet Take 1 tablet by mouth every 12 hours. - albuterol HFA (PROAIR HFA) 90 mcg/actuation inhaler Inhale 2 Puffs as instructed. - nitroglycerin sublingual (NITROQUICK) 0.4 mg SL tablet Dissolve 0.4 mg under the tongue every 5 minutes as needed for chest pain. - guaiFENesin 1,200 mg Ta12 Take by mouth. - acetaminophen 325 mg cap Take by mouth. - predniSONE (DELTASONE) 10 mg tablet Take two tablets for one week then one table for one week then discontinue - Dexlansoprazole (DEXILANT) 60 mg CpDM TAKE ONE CAPSULE BY MOUTH DAILY AT 9AM - ondansetron orally disintegrating (ZOFRAN ODT) 4 mg disintegrating tablet Take 1 tablet by mouth every 8 hours as needed. - hydrOXYzine HCl (ATARAX) 50 mg tablet Take 1 tablet by mouth every 8 hours as needed for anxiety. - fluticasone (FLONASE) 50 mcg/actuation nasal spray INSTILL 2 SPRAYS IN EACH NOSTRIL DAILY RINSE MOUTH AFTER USE (BULK) - furosemide (LASIX) 40 mg tablet TAKE ONE TABLET BY MOUTH DAILY AT 9AM - loperamide (IMODIUM) 2 mg cap(s) Take 1 capsule by mouth three times daily as needed. - tiZANidine (ZANAFLEX) 4 mg tablet TAKE ONE TABLET BY MOUTH AT BEDTIME NEEDED FOR MUSCLE SPASMS (VIAL) - colestipol (COLESTID) 1 gram tablet TAKE ONE TABLET BY MOUTH TWICE DAILY @ 9AM AND 5PM - hyoscyamine sublingual (LEVSIN SL) 0.125 mg Dissolve 1 tablet under the tongue three times daily as needed. - ipratropium (ATROVENT) 0.02 % nebulizer solution Use 2.5 mL via nebulizer four times daily as needed for Wheezing/Shortness of Breath. Use over 5-15minutes. Dx:J45.40 - Cholecalciferol, Vitamin D3, 2,000 unit tab Take 2 tablets by mouth once daily. Meds Comments as of 07/05/2023: Patient is not kang (more content not included)... Normal [facility] CNOVon 09-02-2023 CNOV Office Visit (ORTHWS ) LEYDA LOPEZ ([id number]) 1960 F Date Time Provider Department 09/02/23 9:00 AM SEBAS MOLINA During your visit today, we recorded the following information about you: Sebas Molina MD 09/02/2023 11:43 AM Signed Sebas Molina MD Department of Orthopaedics Orth[facility] [address] [place] [address] Dept: [phone] Dept September 02, 2023 CHIEF COMPLAINT: Pain and New of the Right Wrist, Pain and New of the Left Wrist, and Last seen 08/03/19 Right thumb CMCJ (cancelled surgery) HPI Patient here for evaluation bilateral wrist pain. Patient states her pain at the base of her thumbs. States she is also having some numbness and tingling her fingers. 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 Patient would like injections. She does not want to have surgery. Taking Meloxicam for her pain and helps some. X-rays done today. Significant other Angel with patient today. ASSESSMENT: M18.11 Primary osteoarthritis of first carpometacarpal joint of right hand (primary encounter diagnosis) PLAN: Severe CMC arthritis on the right. We discussed again the risks, benefits, alternatives and potential complications involving both operative and nonoperative treatment. She understands and wishes to pursue surgery. Will get her scheduled at her convenience. FOLLOW UP INSTRUCTIONS: As above OBJECTIVE: Ms. Leyda Lopez is a pleasant 62 year old in no apparent distress. Gen:There were no vitals taken for this visit. nl development, non obese, no deformities ENT: Normocephalic, normal hearing, moist mucosa CV: Pulses:Radial= 2+ and symmetric, capillary refill < 2 secs, no peripheral edema/varicosities Skin: no rash, bruising or lesions. Good turgor. Psych: cooperative and appropriate, alert and oriented x 3, good mood and affect. Musculoskeletal: Moderate swelling at the basal joint. Tender to palpation. Pain and crepitance on grind testing. No significant hyperextension at the MCP joint. IMAGIN views of bilateral hands and wrists show severe CMC osteoarthritis on the right and moderate to severe on the left. Supporting Subjective Information Below: Past Medical History: PAST MEDICAL HISTORY Diagnosis Date Abdominal pain, right upper quadrant ADD (attention deficit disorder) Seeing psychiatry Anemia, unspecified Asthma Back pain chronic-Seeing Dr. Blankenship Bipolar affective disorder ([facility]) Chronic right shoulder pain Seeing Dr. Molina Closed dislocation of tarsometatarsal (joint) 01/18/2011 COPD (chronic obstructive pulmonary disease) ([facility]) Depressive disorder, not elsewhere classified 03/22/2005 Disorder of bone and cartilage, unspecified 02/09/2008 Distal radius fracture 01/05/2011 Dysuria Fibromyalgia GERD (gastroesophageal reflux disease) IBS (irritable bowel syndrome) Mitral regurgitation Severe Neck pain chronic-takes vicodin for this NSTEMI (non-ST elevated myocardial infarction) ([facility]) Seeing Dr. Hutton Other and unspecified hyperlipidemia Panic disorder without agoraphobia 03/22/2005 PMR (polymyalgia rheumatica) ([facility]) RA (rheumatoid arthritis) ([facility]) Unspecified essential hypertension 03/22/2005 Past Surgical History: PAST SURGICAL HISTORY Procedure Laterality Date COLONOSCOPY FLX DX W/COLLJ SPEC WHEN PFRMD 01/23/08 Normal COLONOSCOPY FLX DX W/COLLJ SPEC WHEN PFRMD 01/09/2012 Colonoscopy DIAGNOSTIC ARTHROSCOPY SHOULDER +- SYNOVIAL BX Right 04/10/2017 Right shoulder arthroscopy with open SAD and rotator cuff repair EGD TRANSORAL BIOPSY SINGLE/MULTIPLE 01/23/08 Minimal antral gastritis HEART CATHETERIZATION 01/2016 no intervention Partial hysterectomy still has ovaries PAST SURGICAL HISTORY OF 02/2016 total teeth extraction RMVL LENS MATERIAL PHACOFRAGMENTATION ASPIR 12/2010 Cataract Extraction RPR UMBILICAL HRNA 5 YRS/> REDUCIBLE 12/04/2016 Hernia repair, umbilical >5yr SURGICAL ARTHROSCOPY SHOULDER W/ROTATOR CUFF RPR Right 01/01/2018 Right shoulder arthroscopy SAD, Acromioplasty, debridement glenohumeral joint, biceps tenotomy, RCR, superior capsular reconstruction Family History: FAMILY HISTORY Problem Relation Age of Onset COPD Mother Breast Cancer Mother Heart Father DC COPD Father other (Pulmonary fibrosis) Father Social History: Social History Tobacco Use Smoking status: Former Packs/day: 0.50 Years: 20.00 Additional pack years: 0.00 Total pack years: 10.00 Types: Cigarettes Start date: 1973 Quit date: 03/04/1989 Years since quittin.5 Smokeless tobacco: Never Tobacco comments: Both parents smoked in childhood home. Lived with smoker as adult. Vaping Use Vaping Use: Never used Substance Use Topics Alcohol use: No Drug use: No Medications: Current Outpatient Medications Medication Sig TYE (more content not included)... Normal [facility] XR WRIST 3V PA/LAT/OBL BILon 09-02-2023 XR WRIST 3V PA/LAT/OBL SIDNEY * * *Final Report* * * DATE OF EXAM: Sep 02 2023 9:09AM [id number] [id number] - XR WRIST 3V PA/LAT/OBL SIDNEY / PROCEDURE REASON: Pain * * * * Physician Interpretation * * * * EXAMINATION: XR WRIST 3V PA/LAT/OBL SIDNEY CLINICAL HISTORY: Bilateral wrist pain Technique: XR WRIST 3V PA/LAT/OBL SIDNEY -- BILATERAL with 3 views on 6 images Comparison: X-ray right wrist 03/27/2019 RESULT: Right wrist: No acute fracture or dislocation. Unchanged appearance of a well marginated cyst in the scaphoid waist. Right first carpometacarpal joint space narrowing with large marginal osteophytes. Left wrist: No acute fracture or dislocation. Mild radiocarpal joint space narrowing. Narrowing of the left first carpometacarpal joint with marginal osteophytes. IMPRESSION: No acute fracture. Degenerative disease of bilateral wrists. Regulatory Intern: BABY Transcribe Date/Time: Sep 06 2023 3:35P Dictated by : KELSIE LAMAR MD This examination was interpreted and the report reviewed and electronically signed by: KELSIE LAMAR MD on Sep 06 2023 3:37PM EST [id number] [facility] LEYDA LOPEZ ([id number]) 1960 F Date Time Provider Department 08/13/23 VELVET PALACIO INTWS During your visit today, we recorded the following information about you: Lilliana Pruitt LPN 08/13/2023 3:30 PM Signed Pt called and she is having problems getting her Lyrica. I called the pharmacy and they reports they have our prescription but it is coming up as of 08-02-23 coverage has been terminated. Pt notified and instructed to call her insurance company and may need to take her insurance cards over to the pharmacy. Pt verbalizes understanding. Lilliana Pruitt LPN Allergies As of Date: 08/13/2023 Noted Allergy Reaction AMLODIPINE 06/13/2023 14 - Other: See Comments Comments: shaky and jittery ATIVAN (LORAZEPAM) 08/24/2014 1 - Mental Status Change 11 - Vomiting Comments: mood swings BACLOFEN 06/04/2014 1 - Mental Status Change Comments: angry,mood effect METHOTREXATE 12/20/2011 11 - Vomiting Comments: abdomen pain,vomiting, sbo NADOLOL 02/05/2013 5 - Intolerance Comments: body burning,tingly NEXIUM (ESOMEPRAZOLE MAGNESIUM) 07/15/2015 14 - Other: See Comments Comments: reflux-no relief PENICILLIN G 09/29/2012 8 - GI Upset Comments: patient reports these symptoms after medication was ordered PROPRANOLOL 01/30/2013 5 - Intolerance Comments: fatigue,sleepy Date Reviewed: 07/05/2023 Reviewed by: Radha Willams MD - Fully Assessed Reason for Visit: Medication Problem [65] Prescriptions as of 08/13/2023 - escitalopram oxalate (LEXAPRO) 20 mg tablet Take 1 tablet by mouth once daily. - busPIRone (BUSPAR) 5 mg tablet Take 1 tablet by mouth three times a day. - SUMAtriptan (IMITREX) 50 mg tablet Take 1 tablet (50 mg) by mouth as needed for migraine headache (see administration instructions). START AT ONSET OF HEADACHE. MAY REPEAT DOSE AFTER 2 HOURS. - amitriptyline (ELAVIL) 100 mg tablet Take 1 tablet by mouth daily at bedtime. - meloxicam (MOBIC) 7.5 mg tablet Take 1 tablet by mouth once daily. - lisinopril (ZESTRIL) 40 mg tablet Take 1 tablet by mouth once daily. - atorvastatin (LIPITOR) 40 mg tablet TAKE ONE TABLET BY MOUTH DAILY AT 9PM AT BEDTIME - fluticasone-salmeterol (ADVAIR, WIXELA) 250-50 mcg/dose inhaler Inhale 1 Puff as instructed two times a day. - pregabalin (LYRICA) 50 mg capsule Take 1 capsule by mouth two times a day for 180 days. - amoxicillin-clavulanate potassium (AUGMENTIN) 875-125 mg per tablet Take 1 tablet by mouth every 12 hours. - potassium chloride ER (KLOR-CON) 20 mEq tablet Take 20 mEq by mouth. - predniSONE (DELTASONE) 20 mg tablet Take 1 tablet by mouth every 12 hours. - albuterol HFA (PROAIR HFA) 90 mcg/actuation inhaler Inhale 2 Puffs as instructed. - nitroglycerin sublingual (NITROQUICK) 0.4 mg SL tablet Dissolve 0.4 mg under the tongue every 5 minutes as needed for chest pain. - guaiFENesin 1,200 mg Ta12 Take by mouth. - acetaminophen 325 mg cap Take by mouth. - predniSONE (DELTASONE) 10 mg tablet Take two tablets for one week then one table for one week then discontinue - Dexlansoprazole (DEXILANT) 60 mg CpDM TAKE ONE CAPSULE BY MOUTH DAILY AT 9AM - ondansetron orally disintegrating (ZOFRAN ODT) 4 mg disintegrating tablet Take 1 tablet by mouth every 8 hours as needed. - hydrOXYzine HCl (ATARAX) 50 mg tablet Take 1 tablet by mouth every 8 hours as needed for anxiety. - fluticasone (FLONASE) 50 mcg/actuation nasal spray INSTILL 2 SPRAYS IN EACH NOSTRIL DAILY RINSE MOUTH AFTER USE (BULK) - furosemide (LASIX) 40 mg tablet TAKE ONE TABLET BY MOUTH DAILY AT 9AM - loperamide (IMODIUM) 2 mg cap(s) Take 1 capsule by mouth three times daily as needed. - tiZANidine (ZANAFLEX) 4 mg tablet TAKE ONE TABLET BY MOUTH AT BEDTIME NEEDED FOR MUSCLE SPASMS (VIAL) - colestipol (COLESTID) 1 gram tablet TAKE ONE TABLET BY MOUTH TWICE DAILY @ 9AM AND 5PM - hyoscyamine sublingual (LEVSIN SL) 0.125 mg Dissolve 1 tablet under the tongue three times daily as needed. - ipratropium (ATROVENT) 0.02 % nebulizer solution Use 2.5 mL via nebulizer four times daily as needed for Wheezing/Shortness of Breath. Use over 5-15minutes. Dx:J45.40 - Cholecalciferol, Vitamin D3, 2,000 unit tab Take 2 tablets by mouth once daily. Meds Comments as of 07/05/2023: Patient is not sure what antibiotic she was place on in hospital Problem List As Of Date 08/13/2023 Noted Resolved Essential hypertension [I10] 03/22/2005 Moderate episode of recurrent major depressive *03/22/2005 PANIC DISORDER WITHOUT AGORAPHOBIA [F41.0] 03/22/2005 Asthma [J45.909] 03/22/2005 Hyperlipidemia [E78.5] ANEMIA BLOOD LOSS CHRONIC [D50.0] 12/23/2007 12/01/2013 BONE AND CARTILAGE DIS NOS [M89.9, M94.9] 02/09/2008 CRI (chronic renal insufficiency) (HCC) [N18.9] 09/30/2009 12/01/2013 Bipolar affective [F31.9] 04/27/2010 05/21/2018 (more content not included)... Normal [facility] Absolute lymphocyte countOrd ered By: Diana Bates on 06-06-2023 Lymphocytes Auto (Unsp spec) [#/Vol] 1.56 10*3/uL 0.83-4.51 [facility] Automated lymphocyte count a s percentage of total leukocytesOrdered By: Diana Bates on 06-06-2023 Lymphocytes/100 WBC Auto (Unsp spec) 21.0 % 19-41 [facility] Basophil percentageOrdered B y: Diana Bates on 06-06-2023 Basophil percentage 3.8 mg/dL 2.5-4.9 [facility] Basophils/100 WBC (Bld) 0.7 % 0-1 [facility] Chloride [Moles/Vol] 103 mmol/L 98-107 [facility] Eosinophils/100 WBC (Bld) 6.9 % 0-5 [facility] Glucose [Mass/Vol] 180 mg/dL 74-106 [facility] Comment on above: Fasting Glucose resu lt greater than or equal to 126 mg/dL suggests DIABETES MELLITUS per A.D.A. criteria. Hemoglobin (Bld) [Mass/Vol] 10.9 g/dL 12.0-15.0 [facility] Monocytes/100 WBC (Bld) 7.3 % 0-10 [facility] Neutrophils (Bld) [#/Vol] 4.8 10*3/uL 2.0-7.7 [facility] Neutrophils/100 WBC (Bld) 63.7 % 47-70 [facility] Potassium [Moles/Vol] 3.4 mmol/L 3.5-5.1 [facility] Sodium [Moles/Vol] 140 mmol/L 136-145 [facility] WBC (Bld) [#/Vol] 7.4 10*3/uL 4.4-11.0 [facility] Determination of erythrocyte mean corpuscular volume (MCV)Ordered By: Diana Bates on 06-06-2023 MCV (RBC) [Entitic vol] 93.9 fL 81-99 [facility] Erythrocyte distribution wid th ratioOrdered By: Diana Bates on 06-06-2023 Erythrocyte distribution width (RBC) [Ratio] 15.3 % 11.6-14.6 [facility] Erythrocyte distribution wid th standard deviationOrdered By: Diana Bates on 06-06-2023 Erythrocyte distribution width (RBC) [Entitic vol] 52.8 fL 35.1-43.9 [facility] Hematocrit Auto (Bld) [Volum e fraction]Ordered By: Diana Bates on 06-06-2023 Hematocrit (Bld) [Volume fraction] 34.0 % 37-47 [facility] Immature granulocytes/100 WB C Auto (Bld)Ordered By: Diana Bates on 06-06-2023 Immature granulocytes/100 WBC (Bld) 0.400 % 0.0-0.9 [facility] Comment on above: IG% - Immature Granu locytes (promyelocytes, myelocytes and metamyelocytes) > 1% indicates that a LEFT SHIFT is Present. Laboratory - Chemistry and C hemistry - challengeOrdered By: Diana Bates on 06-06-2023 CO2 [Moles/Vol] 30.0 mmol/L 21.0-32.0 [facility] Magnesium [Mass/Vol] 1.8 mg/dL 1.6-2.6 [facility] Urea nitrogen/Creatinine [Mass ratio] 20.2 mg/mg 10-20 [facility] Laboratory - Hematology and Cell countsOrdered By: Diana Bates on 06-06-2023 MCH (RBC) [Entitic mass] 30.1 pg 27.0-32.0 [facility] MCHC (RBC) [Mass/Vol] 32.1 g/dL 32-36 [facility] Nucleated RBC/100 WBC (Bld) [Ratio] 0 % 0-5 [facility] Platelet mean volume (Bld) [Entitic vol] 9.4 fL 6.2-12.0 [facility] Platelets (Bld) [#/Vol] 208 10*3/uL 150-450 [facility] No Panel InformationOrdered By: Diana Bates on 06-06-2023 Estimated Creatinine Clearance Calc 42.13 ml/min [facility] Estimated GFR (MDRD) Amer 62 mL/min >60 [facility] Comment on above: GFR Calc Estimated GFR (MDRD) Non-Af Amer 51 mL/min >60 [facility] Comment on above: Non- GFR Calc RBC Auto (Bld) [#/Vol]Ordere d By: Diana Bates on 06-06-2023 RBC (Bld) [#/Vol] 3.62 10*6/uL 4.2-5.4 [facility] Serum or plasma calcium melo urement (mass/volume)Ordered By: Diana Bates on 06-06-2023 Calcium [Mass/Vol] 8.3 mg/dL 8.5-10.1 [facility] Serum or plasma creatinine m easurement (mass/volume)Ordered By: Diana Bates on 06-06-2023 Creatinine [Mass/Vol] 1.14 mg/dL 0.55-1.02 [facility] Comment on above: The validity of the calculated GFR & GFRAA in patients over 70 years has not been determined. Clinical correlation is essential. Serum or plasma urea nitroge n measurement (mass/volume)Ordered By: Diana Bates on 06-06-2023 Urea nitrogen [Mass/Vol] 23 mg/dL 7-18 [facility] Thin prep Papanicolaou smear with manual screeningOrdered By: Diana Bates on 06-06-2023 Thin prep Papanicolaou smear with manual screening 7 5-15 [facility] Absolute lymphocyte countOrd ered By: Zurdo Howard on 06-04-2023 Lymphocytes Auto (Unsp spec) [#/Vol] 1.56 10*3/uL 0.83-4.51 [facility] Activated partial thrombopla stin time (aPTT) in platelet poor plasma by coagulation aOrdered By: Zurdo Howard on 06-04-2023 aPTT Coag (PPP) [Time] 24.7 s 24.1-36.2 [facility] Assessment of wrist artery p atency prior to arterial punctureOrdered By: Zurdo Howard on 06-04-2023 Arterial patency Wrist artery --pre arterial puncture Positive [facility] Automated lymphocyte count a s percentage of total leukocytesOrdered By: Zurdo Howard on 06-04-2023 Lymphocytes/100 WBC Auto (Unsp spec) 15.1 % 19-41 [facility] Base excessOrdered By: Hira Howard on 06-04-2023 Base excess Calc (BldV) [Moles/Vol] 4 mmol/L -2-2 [facility] Basophil percentageOrdered B y: Sid Hillman on 06-04-2023 Lactate [Moles/Vol] 6.0 mmol/L 0.4-2.0 [facility] Comment on above: Critical Result(s) C alled at: 19:57:02 06/04/2023 by: SKINNY REID. Results read back by same. Lactate [Moles/Vol] 2.5 mmol/L 0.4-2.0 [facility] Comment on above: Critical Result(s) C alled at: 15:44:10 06/04/2023 by: SKINNY MIKE. Results read back by same. Basophil percentageOrdered B y: Zurdo Howard on 06-04-2023 Basophil percentage 30 mmol/L [facility] Basophils/100 WBC (Bld) 84 % 95-99 [facility] Basophils/100 WBC (Bld) 0.5 % 0-1 [facility] Chloride [Moles/Vol] 107 mmol/L 98-107 [facility] Eosinophils/100 WBC (Bld) 1.8 % 0-5 [facility] Glucose [Mass/Vol] 113 mg/dL 74-106 [facility] Comment on above: Fasting Glucose resu lt from 100 to 125 mg/dL suggests IMPAIRED HOMEOSTASIS per A.D.A. criteria. Hemoglobin (Bld) [Mass/Vol] 11.8 g/dL 12.0-15.0 [facility] Monocytes/100 WBC (Bld) 4.7 % 0-10 [facility] Neutrophils (Bld) [#/Vol] 8.0 10*3/uL 2.0-7.7 [facility] Neutrophils/100 WBC (Bld) 77.2 % 47-70 [facility] Potassium [Moles/Vol] 4.3 mmol/L 3.5-5.1 [facility] Sodium [Moles/Vol] 141 mmol/L 136-145 [facility] WBC (Bld) [#/Vol] 10.4 10*3/uL 4.4-11.0 [facility] Determination of erythrocyte mean corpuscular volume (MCV)Ordered By: Zurdo Howard on 06-04-2023 MCV (RBC) [Entitic vol] 95.3 fL 81-99 [facility] Erythrocyte distribution wid th ratioOrdered By: Zurdo Howard on 06-04-2023 Erythrocyte distribution width (RBC) [Ratio] 14.7 % 11.6-14.6 [facility] Erythrocyte distribution wid th standard deviationOrdered By: Zurdo Howard on 06-04-2023 Erythrocyte distribution width (RBC) [Entitic vol] 50.8 fL 35.1-43.9 [facility] Hematocrit Auto (Bld) [Volum e fraction]Ordered By: Zurdo Howard on 06-04-2023 Hematocrit (Bld) [Volume fraction] 38.3 % 37-47 [facility] Immature granulocytes/100 WB C Auto (Bld)Ordered By: Zurdo Howard on 06-04-2023 Immature granulocytes/100 WBC (Bld) 0.700 % 0.0-0.9 [facility] Comment on above: IG% - Immature Granu locytes (promyelocytes, myelocytes and metamyelocytes) > 1% indicates that a LEFT SHIFT is Present. Laboratory - Chemistry and C hemistry - challengeOrdered By: Zurdo Howard on 06-04-2023 CO2 [Moles/Vol] 31.0 mmol/L 21.0-32.0 [facility] Urea nitrogen/Creatinine [Mass ratio] 15.5 mg/mg 10-20 [facility] Laboratory - Chemistry and C hemistry - challengeOrdered By: Sid Hillman on 06-04-2023 Natriuretic peptide B (Bld) [Mass/Vol] 597.5 pg/mL 0-100 [facility] Laboratory - CoagulationOrde red By: Zurdo Howard on 06-04-2023 INR Coag (Bld) [Relative time] 1.0 {INR} [facility] PT Coag (PPP) [Time] 12.8 s 11.7-14.9 [facility] Laboratory - Hematology and Cell countsOrdered By: Zurdo Howard on 06-04-2023 MCH (RBC) [Entitic mass] 29.4 pg 27.0-32.0 [facility] MCHC (RBC) [Mass/Vol] 30.8 g/dL 32-36 [facility] Nucleated RBC/100 WBC (Bld) [Ratio] 0 % 0-5 [facility] Platelet mean volume (Bld) [Entitic vol] 9.4 fL 6.2-12.0 [facility] Platelets (Bld) [#/Vol] 212 10*3/uL 150-450 [facility] Laboratory - Microbiology an jazzy Antimicrobial susceptibilityOrdered By: Zurdo Howard on 06-04-2023 SARS-CoV-2 (COVID-19) RNA RICK+probe Ql (Unsp spec) [facility] Measurement, pHOrdered By: Jazzy Howard on 06-04-2023 pH (Unsp spec) 7.40 [pH] 7.35-7.45 [facility] No Panel InformationOrdered By: Sid Hillman on 06-04-2023 Streptococcus pneumoniae Antigen (M [facility] Troponin I High Sensitivity 22 pg/mL 3.0-54.0 [facility] Comment on above: Please Note: New Olga t Units and Gender Specific Reference Ranges. For more information see Policy Stat Procedure [place] High Sensitivity Troponin (TNIH) and attachments. No Panel InformationOrdered By: Zurdo Howard on 06-04-2023 Arterial Blood Partial Pressure CO2 46.5 mmHg 35-45 [facility] Arterial Blood Partial Pressure O2 50 mmHG 75-100 [facility] Blood Gas Bicarbonate Actual 28.7 mmol/L 22-26 [facility] Blood Gas Oxygen Percent 3.0 [facility] Blood Gas Sample Site R Brach [facility] Blood Gas Specimen Type ART [facility] Blood Gas Vent Mode Not entered [facility] Oxygen Delivery Device Cannula [facility] Estimated Creatinine Clearance Calc 54.27 ml/min [facility] Estimated GFR (MDRD) Amer 81 mL/min >60 [facility] Comment on above: GFR Calc Estimated GFR (MDRD) Non-Af Amer 67 mL/min >60 [facility] Comment on above: Non- GFR Calc Troponin I High Sensitivity 17 pg/mL 3.0-54.0 [facility] Comment on above: Please Note: New Olga t Units and Gender Specific Reference Ranges. For more information see Policy Stat Procedure [place] High Sensitivity Troponin (TNIH) and attachments. RBC Auto (Bld) [#/Vol]Ordere d By: Zurdo Howard on 06-04-2023 RBC (Bld) [#/Vol] 4.02 10*6/uL 4.2-5.4 [facility] Serum or plasma calcium melo urement (mass/volume)Ordered By: Zurdo Howard on 06-04-2023 Calcium [Mass/Vol] 8.5 mg/dL 8.5-10.1 [facility] Serum or plasma creatinine m easurement (mass/volume)Ordered By: Zurdo Howard on 06-04-2023 Creatinine [Mass/Vol] 0.90 mg/dL 0.55-1.02 [facility] Comment on above: The validity of the calculated GFR & GFRAA in patients over 70 years has not been determined. Clinical correlation is essential. Serum or plasma urea nitroge n measurement (mass/volume)Ordered By: Zurdo Howard on 06-04-2023 Urea nitrogen [Mass/Vol] 14 mg/dL 7-18 [facility] Thin prep Papanicolaou smear with manual screeningOrdered By: Zurdo Howard on 06-04-2023 Thin prep Papanicolaou smear with manual screening 3 5-15 [facility] Urine Legionella pneumophila antigen detectionOrdered By: Sid Hillman on 06-04-2023 L. pneumophila Ag Ql (U) [facility] Absolute lymphocyte countOrd ered By: Trey Joe on 05-18-2023 Lymphocytes Auto (Unsp spec) [#/Vol] 1.98 10*3/uL 0.83-4.51 [facility] Automated lymphocyte count a s percentage of total leukocytesOrdered By: Trey Joe on 05-18-2023 Lymphocytes/100 WBC Auto (Unsp spec) 25.5 % 19-41 [facility] Basophil percentageOrdered B y: Trey Joe on 05-18-2023 Basophils/100 WBC (Bld) 0.9 % 0-1 [facility] Chloride [Moles/Vol] 102 mmol/L 98-107 [facility] Eosinophils/100 WBC (Bld) 4.3 % 0-5 [facility] Glucose [Mass/Vol] 115 mg/dL 74-106 [facility] Comment on above: Fasting Glucose resu lt from 100 to 125 mg/dL suggests IMPAIRED HOMEOSTASIS per A.D.A. criteria. Hemoglobin (Bld) [Mass/Vol] 10.7 g/dL 12.0-15.0 [facility] Monocytes/100 WBC (Bld) 11.0 % 0-10 [facility] Neutrophils (Bld) [#/Vol] 4.5 10*3/uL 2.0-7.7 [facility] Neutrophils/100 WBC (Bld) 57.4 % 47-70 [facility] Potassium [Moles/Vol] 3.8 mmol/L 3.5-5.1 [facility] Sodium [Moles/Vol] 138 mmol/L 136-145 [facility] WBC (Bld) [#/Vol] 7.8 10*3/uL 4.4-11.0 [facility] Determination of erythrocyte mean corpuscular volume (MCV)Ordered By: Trey Joe on 05-18-2023 MCV (RBC) [Entitic vol] 92.3 fL 81-99 [facility] Erythrocyte distribution wid th ratioOrdered By: Trey Joe on 05-18-2023 Erythrocyte distribution width (RBC) [Ratio] 13.2 % 11.6-14.6 [facility] Erythrocyte distribution wid th standard deviationOrdered By: Trey Joe on 05-18-2023 Erythrocyte distribution width (RBC) [Entitic vol] 44.8 fL 35.1-43.9 [facility] Hematocrit Auto (Bld) [Volum e fraction]Ordered By: Trey Joe on 05-18-2023 Hematocrit (Bld) [Volume fraction] 33.6 % 37-47 [facility] Immature granulocytes/100 WB C Auto (Bld)Ordered By: Trey Joe on 05-18-2023 Immature granulocytes/100 WBC (Bld) 0.900 % 0.0-0.9 [facility] Comment on above: IG% - Immature Granu locytes (promyelocytes, myelocytes and metamyelocytes) > 1% indicates that a LEFT SHIFT is Present. Laboratory - Chemistry and C hemistry - challengeOrdered By: Trey Joe on 05-18-2023 CO2 [Moles/Vol] 33.0 mmol/L 21.0-32.0 [facility] Urea nitrogen/Creatinine [Mass ratio] 20.7 mg/mg 10-20 [facility] Laboratory - Hematology and Cell countsOrdered By: Trey Joe on 05-18-2023 MCH (RBC) [Entitic mass] 29.4 pg 27.0-32.0 [facility] MCHC (RBC) [Mass/Vol] 31.8 g/dL 32-36 [facility] Nucleated RBC/100 WBC (Bld) [Ratio] 0 % 0-5 [facility] Platelet mean volume (Bld) [Entitic vol] 9.0 fL 6.2-12.0 [facility] Platelets (Bld) [#/Vol] 533 10*3/uL 150-450 [facility] No Panel InformationOrdered By: Trey Joe on 05-18-2023 Estimated Creatinine Clearance Calc 47.84 ml/min [facility] Estimated GFR (MDRD) Amer 79 mL/min >60 [facility] Comment on above: GFR Calc Estimated GFR (MDRD) Non-Af Amer 66 mL/min >60 [facility] Comment on above: Non- GFR Calc RBC Auto (Bld) [#/Vol]Ordere d By: Trey Joe on 05-18-2023 RBC (Bld) [#/Vol] 3.64 10*6/uL 4.2-5.4 [facility] Serum or plasma calcium melo urement (mass/volume)Ordered By: Trey Joe on 05-18-2023 Calcium [Mass/Vol] 9.1 mg/dL 8.5-10.1 [facility] Serum or plasma creatinine m easurement (mass/volume)Ordered By: Trey Joe on 05-18-2023 Creatinine [Mass/Vol] 0.92 mg/dL 0.55-1.02 [facility] Comment on above: The validity of the calculated GFR & GFRAA in patients over 70 years has not been determined. Clinical correlation is essential. Serum or plasma urea nitroge n measurement (mass/volume)Ordered By: Trey Joe on 05-18-2023 Urea nitrogen [Mass/Vol] 19 mg/dL 7-18 [facility] Thin prep Papanicolaou smear with manual screeningOrdered By: Trey Joe on 05-18-2023 Thin prep Papanicolaou smear with manual screening 3 5-15 [facility] Basophil percentageOrdered B y: Sid Hillman on 05-16-2023 Bilirubin [Mass/Vol] 0.50 mg/dL 0.20-1.00 [facility] Comment on above: For patients on eltr ombopag therapy, use of Dimension [place] TBIL is not recommended. Protein [Mass/Vol] 7.1 g/dL 6.4-8.2 [facility] Gram stain for investigation of transfusion reactionOrdered By: Merrick White on 05-16-2023 Microscopic observation Gram stain Nom (Unsp spec) [facility] Laboratory - Chemistry and C hemistry - challengeOrdered By: Sid Hillman on 05-16-2023 Albumin/Globulin [Mass ratio] 0.4 {ratio} 0.9-2.4 [facility] ALP [Catalytic activity/Vol] 90 U/L 45-117 [facility] ALT [Catalytic activity/Vol] 51 U/L 13-56 [facility] Globulin (S) [Mass/Vol] 4.9 g/dL 2.2-4.2 [facility] Microbial respiratory cultur eOrdered By: Merrick White on 05-16-2023 Bacteria identified Respiratory culture Nom (Unsp spec) [facility] Stool gastrointestinal hemog lobin detection by immunologic methodOrdered By: Sid Hillman on 05-16-2023 Lower GI hemoglobin IA Ql (Stl) [facility] Stool lactoferrin detection by immunoassayOrdered By: Sid Hillman on 05-16-2023 Lactoferrin IA Ql (Stl) [facility] Thin prep Papanicolaou smear with manual screeningOrdered By: Sid Hillman on 05-16-2023 Thin prep Papanicolaou smear with manual screening 2.2 g/dL 3.2-5.0 [facility] Thin prep Papanicolaou smear with manual screening 42 U/L 15-37 [facility] Basophil percentageOrdered B y: Sid Hillman on 05-13-2023 Basophil percentage 3.1 mg/dL 2.5-4.9 [facility] Giardia lamblia ag stool EIA Ordered By: Sid Hillman on 05-13-2023 G. lamblia Ag IA Ql (Stl) Negative [facility] Comment on above: TEST RESULTS LIMITSG iardia lamblia Ag, EIA Negative Negative TESTING PERFORMED AT [facility]. ORIGINAL REPORT ON FILE IN LAB CONTAINS ADDITIONAL TEST SITE INFORMATION. Laboratory - Chemistry and C hemistry - challengeOrdered By: Sid Hillman on 05-13-2023 Magnesium [Mass/Vol] 1.8 mg/dL 1.6-2.6 [facility] Direct bilirubinOrdered By: Himanshu Aldana on 05-12-2023 Bilirubin.direct [Mass/Vol] 0.13 mg/dL 0.00-0.30 [facility] Laboratory - CoagulationOrde red By: Himanshu Aldana on 05-12-2023 INR Coag (Bld) [Relative time] 1.3 {INR} [facility] PT Coag (PPP) [Time] 16.1 s 11.7-14.9 [facility] Serum or plasma thyroid stim ulating hormone (TSH) measurement (units/volume)Ordered By: Himanshu Aldana on 05-12-2023 TSH Qn 1.33 uIU/mL 0.358-3.74 [facility] Absolute lymphocyte countOrd ered By: Juan Celis on 05-11-2023 Lymphocytes Auto (Unsp spec) [#/Vol] 1.45 10*3/uL 0.83-4.51 [facility] Amorphous sediment detection in urine sediment by light microscopyOrdered By: Juan Celis on 05-11-2023 Amorphous sediment LM Ql (Urine sed) 1+ [facility] Automated lymphocyte count a s percentage of total leukocytesOrdered By: Juan Celis on 05-11-2023 Lymphocytes/100 WBC Auto (Unsp spec) 10.8 % 19-41 [facility] Basophil percentageOrdered B y: Juan Celis on 05-11-2023 Lactate [Moles/Vol] 1.4 mmol/L 0.4-2.0 [facility] Basophil percentage 0 SEEN /hpf 0-5 [facility] Basophils/100 WBC (Bld) 0.2 % 0-1 [facility] Bilirubin [Mass/Vol] 0.60 mg/dL 0.20-1.00 [facility] Comment on above: For patients on eltr ombopag therapy, use of Dimension [place] TBIL is not recommended. Chloride [Moles/Vol] 96 mmol/L 98-107 [facility] Eosinophils/100 WBC (Bld) 0.0 % 0-5 [facility] Glucose [Mass/Vol] 136 mg/dL 74-106 [facility] Comment on above: Fasting Glucose resu lt greater than or equal to 126 mg/dL suggests DIABETES MELLITUS per A.D.A. criteria. Hemoglobin (Bld) [Mass/Vol] 14.0 g/dL 12.0-15.0 [facility] Lactate [Moles/Vol] 2.4 mmol/L 0.4-2.0 [facility] Comment on above: Critical Result(s) C alled at: 12:39:40 05/11/2023 by: Good Webb. Krishan Hendrickson RN (ER). Results read back by same. Monocytes/100 WBC (Bld) 8.6 % 0-10 [facility] Neutrophils (Bld) [#/Vol] 10.5 10*3/uL 2.0-7.7 [facility] Neutrophils/100 WBC (Bld) 78.4 % 47-70 [facility] Potassium [Moles/Vol] 2.8 mmol/L 3.5-5.1 [facility] Protein [Mass/Vol] 8.4 g/dL 6.4-8.2 [facility] Sodium [Moles/Vol] 136 mmol/L 136-145 [facility] WBC (Bld) [#/Vol] 13.4 10*3/uL 4.4-11.0 [facility] Bilirubin Test strip Ql (U)O rdered By: Juan Celis on 05-11-2023 Bilirubin Ql (U) Negative Negative [facility] Blood manual differential co mment interpretation (narrative result)Ordered By: Juan Celis on 05-11-2023 Manual differential comment Jameel (Bld) [Interp] SCANNED [facility] Determination of erythrocyte mean corpuscular volume (MCV)Ordered By: Juan Celis on 05-11-2023 MCV (RBC) [Entitic vol] 88.0 fL 81-99 [facility] Erythrocyte distribution wid th ratioOrdered By: Juan Celis on 05-11-2023 Erythrocyte distribution width (RBC) [Ratio] 13.2 % 11.6-14.6 [facility] Erythrocyte distribution wid th standard deviationOrdered By: Juan Celis on 05-11-2023 Erythrocyte distribution width (RBC) [Entitic vol] 42.7 fL 35.1-43.9 [facility] Hematocrit Auto (Bld) [Volum e fraction]Ordered By: Juan Celis on 05-11-2023 Hematocrit (Bld) [Volume fraction] 41.7 % 37-47 [facility] Immature granulocytes/100 WB C Auto (Bld)Ordered By: Juan Celis on 05-11-2023 Immature granulocytes/100 WBC (Bld) 2.000 % 0.0-0.9 [facility] Comment on above: IG% - Immature Granu locytes (promyelocytes, myelocytes and metamyelocytes) > 1% indicates that a LEFT SHIFT is Present. Ketones Test strip Ql (U)Ord ered By: Juan Celis on 05-11-2023 Ketones Ql (U) 50 mg/dl Negative [facility] Laboratory - Chemistry and C hemistry - challengeOrdered By: Juan Celis on 05-11-2023 Albumin/Globulin [Mass ratio] 0.6 {ratio} 0.9-2.4 [facility] ALP [Catalytic activity/Vol] 135 U/L 45-117 [facility] ALT [Catalytic activity/Vol] 22 U/L 13-56 [facility] CO2 [Moles/Vol] 28.0 mmol/L 21.0-32.0 [facility] Globulin (S) [Mass/Vol] 5.4 g/dL 2.2-4.2 [facility] Lipase [Catalytic activity/Vol] 14 U/L 13-75 [facility] Comment on above: Please note:LIPASE r evised reference range effective 22. New Lipase methodology. Expected to produce lower values than the previous assay method. NEW Reference Range: 13 - 75 U/L Urea nitrogen/Creatinine [Mass ratio] 13.3 mg/mg 10-20 [facility] Laboratory - Hematology and Cell countsOrdered By: Juan Celis on 05-11-2023 MCH (RBC) [Entitic mass] 29.5 pg 27.0-32.0 [facility] MCHC (RBC) [Mass/Vol] 33.6 g/dL 32-36 [facility] Nucleated RBC/100 WBC (Bld) [Ratio] 0 % 0-5 [facility] Platelet mean volume (Bld) [Entitic vol] 9.4 fL 6.2-12.0 [facility] Platelets (Bld) [#/Vol] 394 10*3/uL 150-450 [facility] Laboratory - Microbiology an d Antimicrobial susceptibilityOrdered By: Juan Celis on 05-11-2023 Bacteria identified Cx Nom (Bld) No growth in 5 days. [facility] SARS-CoV-2 (COVID-19) RNA RICK+probe Ql (Unsp spec) RSV [facility] Mucus LM Ql (Urine sed)Order ed By: Juan Celis on 05-11-2023 Mucus Ql (Urine sed) 0 SEEN /hpf [facility] Nitrite Test strip Ql (U)Ord ered By: Juan Celis on 05-11-2023 Nitrite Ql (U) Negative Negative [facility] No Panel InformationOrdered By: Juan Celis on 05-11-2023 Urine RBC 0 SEEN /hpf 0-5 [facility] Estimated Creatinine Clearance Calc 56.58 ml/min [facility] Estimated GFR (MDRD) Amer 90 mL/min >60 [facility] Comment on above: GFR Calc Estimated GFR (MDRD) Non-Af Amer 75 mL/min >60 [facility] Comment on above: Non- GFR Calc Protein Test strip Ql (U)Ord ered By: Juan Celis on 05-11-2023 Protein Ql (U) 100 mg/dl Negative [facility] RBC Auto (Bld) [#/Vol]Ordere d By: Juan Celis on 05-11-2023 RBC (Bld) [#/Vol] 4.74 10*6/uL 4.2-5.4 [facility] Serum or plasma calcium melo urement (mass/volume)Ordered By: Juan Celis on 05-11-2023 Calcium [Mass/Vol] 9.4 mg/dL 8.5-10.1 [facility] Serum or plasma creatinine m easurement (mass/volume)Ordered By: Juan Celis on 05-11-2023 Creatinine [Mass/Vol] 0.82 mg/dL 0.55-1.02 [facility] Comment on above: The validity of the calculated GFR & GFRAA in patients over 70 years has not been determined. Clinical correlation is essential. Serum or plasma urea nitroge n measurement (mass/volume)Ordered By: Juan Celis on 05-11-2023 Urea nitrogen [Mass/Vol] 11 mg/dL 7-18 [facility] Squamous epithelial cells de tection in urine sediment by light microscopyOrdered By: Juan Celis on 05-11-2023 Epithelial cells.squamous LM Ql (Urine sed) 0 SEEN /hpf 5-10 [facility] Thin prep Papanicolaou smear with manual screeningOrdered By: Juan Celis on 05-11-2023 Thin prep Papanicolaou smear with manual screening 3.0 g/dL 3.2-5.0 [facility] Thin prep Papanicolaou smear with manual screening 41 U/L 15-37 [facility] Thin prep Papanicolaou smear with manual screening 12 5-15 [facility] Urine blood detectionOrdered By: Juan Celis on 05-11-2023 RBC Ql (U) 10 /ul Negative [facility] Urine clarityOrdered By: Brittany Celis on 05-11-2023 Clarity (U) Clear Clear [facility] Urine color determinationOrd ered By: Juan Celis on 05-11-2023 Color (U) Yellow Yellow [facility] Urine glucose detectionOrder ed By: Juan Celis on 05-11-2023 Glucose Ql (U) Normal mg/dl Normal [facility] Urine leukocyte esterase det ection by dipstickOrdered By: Juan Celis on 05-11-2023 Leukocyte esterase Test strip Ql (U) Negative Negative [facility] Urine pHOrdered By: Juan irving on 05-11-2023 pH (U) 5.0 [pH] 5.0 - 8.0 [facility] Urine sediment bacteria coun t by microscopy (number/high power field)Ordered By: Juan Celis on 05-11-2023 Bacteria LM.HPF (Urine sed) [#/Area] 0 /[HPF] None Seen [facility] Urine specific gravity measu rementOrdered By: Juan Celis on 05-11-2023 Specific gravity (U) [Rel density] 1.010 1.002-1.03 0 [facility] Urine urobilinogen measureme ntOrdered By: Juan Celis on 05-11-2023 Urobilinogen Ql (U) Normal mg/dl Normal [facility] XR Hand - bilateral PA and L ateral and Obliqueon 04-30-2023 IMPRESSION: 1. Osteoarthritis of the bilateral hands Regulatory Intern: ABBY Transcribe Date/Time: Apr 30 2023 7:31A Dictated by : VITOR ROSALES MD This examination was interpreted and the report reviewed and electronically signed by: VITOR ROSALES MD on Apr 30 2023 7:32AM [facility] DIVISION OF RADIOLOGY * * *Final Report* * * DATE OF EXAM: Apr 29 2023 5:03PM STX 5556 - XR HAND 3V PA/LAT/OBL SIDNEY / PROCEDURE REASON: Pain in joint, multiple sites * * * * Physician Interpretation * * * * HAND RADIOGRAPHS - BILATERAL HISTORY: Pain in joint, multiple sites TECHNOLOGIST PROVIDED HISTORY (if applicable): joint pain bilateral hands best poss images TECHNIQUE: XR HAND 3V PA/LAT/OBL SIDNEY COMPARISON: Radiographs 01/04/2011 RESULT: There is generalized osteopenia. Right hand: Mild narrowing of multiple interphalangeal and metacarpal phalangeal joint spaces. There are no visualized articular erosions or soft tissue swelling. Left hand: Mild narrowing of multiple interphalangeal and metacarpal phalangeal joint spaces. There are no visualized articular erosions or soft tissue swelling. Narrowing of the bilateral CMC joints with advanced involvement on the right side. Well-defined lucency in the central right scaphoid most characteristic for carpal cyst. DIVISION OF RADIOLOGY Provider, [facility] - 04/30/2023 * * *Final Report* * * DATE OF EXAM: Apr 29 2023 5:03PM STX 5556 - XR HAND 3V PA/LAT/OBL SIDNEY / PROCEDURE REASON: Pain in joint, multiple sites * * * * Physician Interpretation * * * * HAND RADIOGRAPHS - BILATERAL HISTORY: Pain in joint, multiple sites TECHNOLOGIST PROVIDED HISTORY (if applicable): joint pain bilateral hands best poss images TECHNIQUE: XR HAND 3V PA/LAT/OBL SIDNEY COMPARISON: Radiographs 01/04/2011 RESULT: There is generalized osteopenia. Right hand: Mild narrowing of multiple interphalangeal and metacarpal phalangeal joint spaces. There are no visualized articular erosions or soft tissue swelling. Left hand: Mild narrowing of multiple interphalangeal and metacarpal phalangeal joint spaces. There are no visualized articular erosions or soft tissue swelling. Narrowing of the bilateral CMC joints with advanced involvement on the right side. Well-defined lucency in the central right scaphoid most characteristic for carpal cyst. IMPRESSION IMPRESSION: 1. Osteoarthritis of the bilateral hands Regulatory Intern: ABBY Transcribe Date/Time: Apr 30 2023 7:31A Dictated by : VITOR ROSALES MD This examination was interpreted and the report reviewed and electronically signed by: VITOR ROSALES MD on Apr 30 2023 7:32AM EST [facility] XR Hand - bilateral PA and L ateral and ObliqueOrdered By: [facility] Provider on 04-30-2023 [facility] XR Hand - bilateral PA and L ateral and Obliqueon 04-29-2023 Radiology Study observation (narrative) [facility] Absolute lymphocyte countOrd ered By: Sánchez Bhatti on 11-14-2022 Lymphocytes Auto (Unsp spec) [#/Vol] 1.56 10*3/uL 0.83-4.51 [facility] Basophil percentageOrdered B y: Sánchez Davy on 11-14-2022 Basophil percentage 25-50 SEEN /hpf 0-5 [facility] Basophils/100 WBC (Bld) 0.4 % 0-1 [facility] Bilirubin [Mass/Vol] 0.80 mg/dL 0.20-1.00 [facility] Comment on above: For patients on eltr ombopag therapy, use of Dimension [place] TBIL is not recommended. Chloride [Moles/Vol] 104 mmol/L 98-107 [facility] Eosinophils/100 WBC (Bld) 0.9 % 0-5 [facility] Glucose [Mass/Vol] 125 mg/dL 74-106 [facility] Comment on above: Fasting Glucose resu lt from 100 to 125 mg/dL suggests IMPAIRED HOMEOSTASIS per A.D.A. criteria. Neutrophils (Bld) [#/Vol] 6.9 10*3/uL 2.0-7.7 [facility] Neutrophils/100 WBC (Bld) 74.9 % 47-70 [facility] Potassium [Moles/Vol] 3.3 mmol/L 3.5-5.1 [facility] Protein [Mass/Vol] 8.9 g/dL 6.4-8.2 [facility] Sodium [Moles/Vol] 139 mmol/L 136-145 [facility] WBC (Bld) [#/Vol] 9.2 10*3/uL 4.4-11.0 [facility] Bilirubin Test strip Ql (U)O rdered By: Sánchez Bhatti on 11-14-2022 Bilirubin Ql (U) Negative Negative [facility] Blood erythrocytes count (nu mber/volume)Ordered By: Sánchez Bhatti on 11-14-2022 RBC (Bld) [#/Vol] 5.25 10*6/uL 4.2-5.4 [facility] Blood hemoglobin measurement (mass/volume)Ordered By: Sánchez Bhatti on 11-14-2022 Hemoglobin (Bld) [Mass/Vol] 15.3 g/dL 12.0-15.0 [facility] Blood lymphocytes/100 leukoc ytesOrdered By: Sánchez Bhatti on 11-14-2022 Lymphocytes/100 WBC (Bld) 17.0 % 19-41 [facility] Blood monocytes/100 leukocyt esOrdered By: Sánchez Bhatti on 11-14-2022 Monocytes/100 WBC (Bld) 6.4 % 0-10 [facility] Blood platelet mean volumeOr dered By: Sánchez Bhatti on 11-14-2022 Platelet mean volume (Bld) [Entitic vol] 10.3 fL 6.2-12.0 [facility] Determination of erythrocyte mean corpuscular volume (MCV)Ordered By: Sánchez Bhatti on 11-14-2022 MCV (RBC) [Entitic vol] 89.0 fL 81-99 [facility] Direct bilirubinOrdered By: Sánchez Bhatti on 11-14-2022 Bilirubin.direct [Mass/Vol] 0.24 mg/dL 0.00-0.30 [facility] Hematocrit Auto (Bld) [Volum e fraction]Ordered By: Sánchez Bhatti on 11-14-2022 Hematocrit (Bld) [Volume fraction] 46.7 % 37-47 [facility] Ketones Test strip Ql (U)Ord ered By: Sánchez Bhatti on 11-14-2022 Ketones Ql (U) 15 mg/dl Negative [facility] Laboratory - Chemistry and C hemistry - challengeOrdered By: Sánchez Bhatti on 11-14-2022 ALP [Catalytic activity/Vol] 119 U/L 45-117 [facility] ALT [Catalytic activity/Vol] 21 U/L 13-56 [facility] CO2 [Moles/Vol] 30.0 mmol/L 21.0-32.0 [facility] Globulin (S) [Mass/Vol] 4.5 g/dL 2.2-4.2 [facility] Lipase [Catalytic activity/Vol] 38 U/L 13-75 [facility] Comment on above: Please note:LIPASE r evised reference range effective 22. New Lipase methodology. Expected to produce lower values than the previous assay method. NEW Reference Range: 13 - 75 U/L Urea nitrogen/Creatinine [Mass ratio] 13.9 mg/mg 10-20 [facility] Laboratory - Hematology and Cell countsOrdered By: Sánchez Bhatti on 11-14-2022 Erythrocyte distribution width (RBC) [Entitic vol] 41.5 fL 35.1-43.9 [facility] Erythrocyte distribution width (RBC) [Ratio] 12.7 % 11.6-14.6 [facility] Immature granulocytes/100 WBC (Bld) 0.400 % 0.0-0.9 [facility] Comment on above: IG% - Immature Granu locytes (promyelocytes, myelocytes and metamyelocytes) > 1% indicates that a LEFT SHIFT is Present. MCH (RBC) [Entitic mass] 29.1 pg 27.0-32.0 [facility] Nucleated RBC/100 WBC (Bld) [Ratio] 0 % 0-5 [facility] MCHC Auto (RBC) [Mass/Vol]Or dered By: Sánchez Bhatti on 11-14-2022 MCHC (RBC) [Mass/Vol] 32.8 g/dL 32-36 [facility] Mucus LM Ql (Urine sed)Order ed By: Sánchez Bhatti on 11-14-2022 Mucus Ql (Urine sed) 0 SEEN /hpf [facility] Nitrite Test strip Ql (U)Ord ered By: Sánchez Bhatti on 11-14-2022 Nitrite Ql (U) Negative Negative [facility] No Panel InformationOrdered By: Sánchez Bhatti on 11-14-2022 Estimated GFR (MDRD) Amer 71 mL/min >60 [facility] Comment on above: GFR Calc Estimated GFR (MDRD) Non-Af Amer 59 mL/min >60 [facility] Comment on above: Non- GFR Calc Platelets bldOrdered By: Manohar Bhatti on 11-14-2022 Platelets (Bld) [#/Vol] 234 10*3/uL 150-450 [facility] Protein Test strip Ql (U)Ord ered By: Sánchez Bhatti on 11-14-2022 Protein Ql (U) 100 mg/dl Negative [facility] Serum or plasma albumin melo urement (mass/volume)Ordered By: Sánchez Bhatti on 11-14-2022 Albumin [Mass/Vol] 4.4 g/dL 3.2-5.0 [facility] Serum or plasma calcium melo urement (mass/volume)Ordered By: Sánchez Bhatti on 11-14-2022 Calcium [Mass/Vol] 10.2 mg/dL 8.5-10.1 [facility] Serum or plasma creatinine m easurement (mass/volume)Ordered By: Sánchez Bhatti on 11-14-2022 Creatinine [Mass/Vol] 1.01 mg/dL 0.55-1.02 [facility] Comment on above: The validity of the calculated GFR & GFRAA in patients over 70 years has not been determined. Clinical correlation is essential. Serum or plasma urea nitroge n measurement (mass/volume)Ordered By: Sánchez Bhatti on 11-14-2022 Urea nitrogen [Mass/Vol] 14 mg/dL 7-18 [facility] Squamous epithelial cells de tection in urine sediment by light microscopyOrdered By: Sánchez hBatti on 11-14-2022 Epithelial cells.squamous LM Ql (Urine sed) 0 SEEN /hpf 5-10 [facility] Thin prep Papanicolaou smear with manual screeningOrdered By: Sánchez Bhatti on 11-14-2022 Thin prep Papanicolaou smear with manual screening 22 U/L 15-37 [facility] Thin prep Papanicolaou smear with manual screening 5 5-15 [facility] Urine blood detectionOrdered By: Sánchez Bhatti on 11-14-2022 RBC Ql (U) 10 /ul Negative [facility] RBC Ql (U) 0 SEEN /hpf 0-5 [facility] Urine clarityOrdered By: Manohar Bhatti on 11-14-2022 Clarity (U) Clear Clear [facility] Urine color determinationOrd ered By: Sánchez Bhatti on 09-13-2023 Color (U) Yellow Yellow [facility] Urine glucose detectionOrder ed By: Sánchez Bhatti on 11-14-2022 Glucose Ql (U) Normal mg/dl Normal [facility] Urine leukocyte esterase det ection by dipstickOrdered By: Sánchez Bhatti on 11-14-2022 Leukocyte esterase Test strip Ql (U) 500 /ul Negative [facility] Urine pHOrdered By: Sánchez conrad on 11-14-2022 pH (U) 6.0 [pH] 5.0 - 8.0 [facility] Urine sediment bacteria coun t by microscopy (number/high power field)Ordered By: Sánchez Bhatti on 11-14-2022 Bacteria LM.HPF (Urine sed) [#/Area] 0 /[HPF] None Seen [facility] Urine specific gravity measu rementOrdered By: Sánchez Bhatti on 11-14-2022 Specific gravity (U) [Rel density] 1.015 1.002-1.03 0 [facility] Urobilinogen Auto test strip Ql (U)Ordered By: Sánchez Bhatti on 11-14-2022 Urobilinogen Ql (U) Normal mg/dl Normal [facility] DXA-AXIAL SKELETONon 023 [facility] Absolute lymphocyte countOrd ered By: Lukasz Rueda on 10-09-2022 Lymphocytes Auto (Unsp spec) [#/Vol] 1.24 10*3/uL 0.83-4.51 [facility] Basophil percentageOrdered B y: Lukasz Rueda on 10-09-2022 Basophil percentage 0-5 SEEN /hpf 0-5 [facility] Basophils/100 WBC (Bld) 0.5 % 0-1 [facility] Chloride [Moles/Vol] 108 mmol/L 98-107 [facility] Eosinophils/100 WBC (Bld) 1.5 % 0-5 [facility] Glucose [Mass/Vol] 101 mg/dL 74-106 [facility] Comment on above: Fasting Glucose resu lt from 100 to 125 mg/dL suggests IMPAIRED HOMEOSTASIS per A.D.A. criteria. Neutrophils (Bld) [#/Vol] 2.5 10*3/uL 2.0-7.7 [facility] Neutrophils/100 WBC (Bld) 60.2 % 47-70 [facility] Potassium [Moles/Vol] 3.2 mmol/L 3.5-5.1 [facility] Sodium [Moles/Vol] 144 mmol/L 136-145 [facility] WBC (Bld) [#/Vol] 4.1 10*3/uL 4.4-11.0 [facility] Bilirubin Test strip Ql (U)O rdered By: Lukasz Rueda on 10-09-2022 Bilirubin Ql (U) Negative Negative [facility] Blood erythrocytes count (nu mber/volume)Ordered By: Lukasz Rueda on 10-09-2022 RBC (Bld) [#/Vol] 4.58 10*6/uL 4.2-5.4 [facility] Blood hemoglobin measurement (mass/volume)Ordered By: Lukasz Rueda on 10-09-2022 Hemoglobin (Bld) [Mass/Vol] 13.4 g/dL 12.0-15.0 [facility] Blood lymphocytes/100 leukoc ytesOrdered By: Lukasz Rueda on 10-09-2022 Lymphocytes/100 WBC (Bld) 30.1 % 19-41 [facility] Blood monocytes/100 leukocyt esOrdered By: Lukasz Rueda on 10-09-2022 Monocytes/100 WBC (Bld) 7.5 % 0-10 [facility] Blood platelet mean volumeOr dered By: Lukasz Rueda on 10-09-2022 Platelet mean volume (Bld) [Entitic vol] 11.2 fL 6.2-12.0 [facility] Determination of erythrocyte mean corpuscular volume (MCV)Ordered By: Lukasz Rueda on 10-09-2022 MCV (RBC) [Entitic vol] 91.0 fL 81-99 [facility] Hematocrit Auto (Bld) [Volum e fraction]Ordered By: Lukasz Rueda on 10-09-2022 Hematocrit (Bld) [Volume fraction] 41.7 % 37-47 [facility] Ketones Test strip Ql (U)Ord ered By: Lukasz Rueda on 10-09-2022 Ketones Ql (U) Negative Negative [facility] Laboratory - Chemistry and C hemistry - challengeOrdered By: Lukasz Rueda on 10-09-2022 CO2 [Moles/Vol] 31.0 mmol/L 21.0-32.0 [facility] Urea nitrogen/Creatinine [Mass ratio] 13.5 mg/mg 10-20 [facility] Laboratory - Drug toxicology Ordered By: Lukasz Rueda on 10-09-2022 Amphetamines Ql (U) Negative <1000 ng/mL [facility] Benzodiazepines Ql (U) Negative < 200 ng/mL [facility] Cannabinoids Screen Ql (U) Positive < 50 ng/mL [facility] Cocaine Ql (U) Negative < 300 ng/mL [facility] Opiates Ql (U) Negative < 300 ng/mL [facility] Laboratory - Hematology and Cell countsOrdered By: Lukasz Rueda on 10-09-2022 Erythrocyte distribution width (RBC) [Entitic vol] 44.3 fL 35.1-43.9 [facility] Erythrocyte distribution width (RBC) [Ratio] 13.3 % 11.6-14.6 [facility] Immature granulocytes/100 WBC (Bld) 0.200 % 0.0-0.9 [facility] Comment on above: IG% - Immature Granu locytes (promyelocytes, myelocytes and metamyelocytes) > 1% indicates that a LEFT SHIFT is Present. MCH (RBC) [Entitic mass] 29.3 pg 27.0-32.0 [facility] Nucleated RBC/100 WBC (Bld) [Ratio] 0 % 0-5 [facility] Laboratory - Microbiology an d Antimicrobial susceptibilityOrdered By: Lukasz Rueda on 10-09-2022 SARS-CoV-2 (COVID-19) RNA RICK+probe Ql (Unsp spec) SARS-CoV-2 (COVID 19) [facility] MCHC Auto (RBC) [Mass/Vol]Or dered By: Lukasz Rueda on 10-09-2022 MCHC (RBC) [Mass/Vol] 32.1 g/dL 32-36 [facility] Mucus LM Ql (Urine sed)Order ed By: Lukasz Rueda on 10-09-2022 Mucus Ql (Urine sed) 0 SEEN /hpf [facility] Nitrite Test strip Ql (U)Ord ered By: Lukasz Rueda on 10-09-2022 Nitrite Ql (U) Negative Negative [facility] No Panel InformationOrdered By: Lukasz Rueda on 10-09-2022 MDMA (Ecstasy) Screen Negative < 500 ng/mL [facility] Urine Barbiturates Screen Negative < 200 ng/mL [facility] Urine Drug Screen Comment [facility] Comment on above: CONFIRMATORY TESTING FOR ALL POSITIVE URINE DRUG SCREENRESULTS WILL ONLY BE SENT OUT UPON PHYSICIAN ORDER. VISTA Urine Drug Screen methods provide only preliminaryanalytical test results. A more specific alternate chemicalmethod must be used in order to obtain a confirmedanalytical result. Gas chromatography/mass spectrometery(GC/MS) is the preferred confirmatory method. Clinicalconsideration and professional judgement should be appliedto any drug of abuse test result, particularly whenpreliminary positive results are used. URINE TCA TESTING MUST BE ORDERED SEPARATELY. USE TESTMNEMONIC: [facility] Urine Methadone Screen Negative < 300 ng/mL [facility] Estimated GFR (MDRD) Amer 83 mL/min >60 [facility] Comment on above: GFR Calc Estimated GFR (MDRD) Non-Af Amer 69 mL/min >60 [facility] Comment on above: Non- GFR Calc Ethyl Alcohol Level < 3.0 mg/dL [facility] Comment on above: The serum:whole bloo d ethanol ratio is approximately 1.14and varies slightly with hematocrit. Medical Alcohol reference interval and critical value innon-tolerant individuals; 50 - 100 Impairment 100 Intoxication 100 - 250 Severe Poisoning 250 - 400 Deep/possible fatal coma Platelets bldOrdered By: Roman Rueda on 10-09-2022 Platelets (Bld) [#/Vol] 148 10*3/uL 150-450 [facility] Protein Test strip Ql (U)Ord ered By: Lukasz Rueda on 10-09-2022 Protein Ql (U) 15 mg/dl Negative [facility] Serum or plasma calcium melo urement (mass/volume)Ordered By: Lukasz Rueda on 10-09-2022 Calcium [Mass/Vol] 8.4 mg/dL 8.5-10.1 [facility] Serum or plasma creatinine m easurement (mass/volume)Ordered By: Lukasz Rueda on 10-09-2022 Creatinine [Mass/Vol] 0.89 mg/dL 0.55-1.02 [facility] Comment on above: The validity of the calculated GFR & GFRAA in patients over 70 years has not been determined. Clinical correlation is essential. Serum or plasma urea nitroge n measurement (mass/volume)Ordered By: Lukasz Rueda on 10-09-2022 Urea nitrogen [Mass/Vol] 12 mg/dL 7-18 [facility] Squamous epithelial cells de tection in urine sediment by light microscopyOrdered By: Lukasz Rueda on 10-09-2022 Epithelial cells.squamous LM Ql (Urine sed) 0-5 SEEN /hpf 5-10 [facility] Thin prep Papanicolaou smear with manual screeningOrdered By: Lukasz Rueda on 10-09-2022 Thin prep Papanicolaou smear with manual screening 5 5-15 [facility] Urine blood detectionOrdered By: Lukasz Rueda on 10-09-2022 RBC Ql (U) Negative Negative [facility] RBC Ql (U) 0-5 SEEN /hpf 0-5 [facility] Urine clarityOrdered By: Roman Rueda on 10-09-2022 Clarity (U) Sl. Cloudy Clear [facility] Urine color determinationOrd ered By: Lukasz Rueda on 10-09-2022 Color (U) Yellow Yellow [facility] Urine glucose detectionOrder ed By: Lukasz Rueda on 10-09-2022 Glucose Ql (U) Normal mg/dl Normal [facility] Urine leukocyte esterase det ection by dipstickOrdered By: Lukasz Rueda on 10-09-2022 Leukocyte esterase Test strip Ql (U) 100 /ul Negative [facility] Urine pHOrdered By: Lukasz Rueda on 10-09-2022 pH (U) 7.0 [pH] 5.0 - 8.0 [facility] Urine phencyclidine (PCP) de tectionOrdered By: Lukasz Rueda on 10-09-2022 Phencyclidine Ql (U) Negative < 25 ng/mL [facility] Urine sediment bacteria coun t by microscopy (number/high power field)Ordered By: Lukasz Rueda on 10-09-2022 Bacteria LM.HPF (Urine sed) [#/Area] 0 /[HPF] None Seen [facility] Urine specific gravity measu rementOrdered By: Lukasz Rueda on 10-09-2022 Specific gravity (U) [Rel density] 1.010 1.002-1.03 0 [facility] Urobilinogen Auto test strip Ql (U)Ordered By: Lukasz Rueda on 10-09-2022 Urobilinogen Ql (U) 4 mg/dl Normal [facility] XR Lumbar spine 3 Viewson IMPRESSION: 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 Regulatory Intern: ABBY Transcribe Date/Time: Oct 03 2022 2:43P Dictated by : QUEENIE LOWRY MD This examination was interpreted and the report reviewed and electronically signed by: QUEENIE LOWRY MD on Oct 03 2022 2:47PM [facility] DIVISION OF RADIOLOGY * * *Final Report* * * DATE OF EXAM: Oct 01 2022 10:46AM WOX 5228 - XR LUMBAR 3V AP/LAT/L5-S1 / PROCEDURE REASON: multiple diagnoses * * * * Physician Interpretation * * * * EXAM TITLE: XR LUMBAR 3V AP/LAT/L5-S1 EXAM DATE/TIME: 10/01/2022 10:46 AM COMPARISON: None. CLINICAL INDICATION/HISTORY: Chronic back pain. TECHNIQUE: AP, lateral and cone down lateral views of the lumbar spine are presented. FINDINGS: There are five xqc-llv-mexdidl lumbar vertebrae. There is left-sided curvature of the spine, seen on AP view. No acute fracture seen. There is grade 1 L4 on L5 anterolisthesis. The disc spaces are well preserved. There is mild osteophyte formation. Multilevel kissing spine seen on lateral view. Others: Questionable free abdominal air versus distended large bowel loops, just below the left hemidiaphragm. DIVISION OF RADIOLOGY Provider, [facility] - 10/03/2022 * * *Final Report* * * DATE OF EXAM: Oct 01 2022 10:46AM WOX 5228 - XR LUMBAR 3V AP/LAT/L5-S1 / PROCEDURE REASON: multiple diagnoses * * * * Physician Interpretation * * * * EXAM TITLE: XR LUMBAR 3V AP/LAT/L5-S1 EXAM DATE/TIME: 10/01/2022 10:46 AM COMPARISON: None. CLINICAL INDICATION/HISTORY: Chronic back pain. TECHNIQUE: AP, lateral and cone down lateral views of the lumbar spine are presented. FINDINGS: There are five mrx-yop-pvnuedw lumbar vertebrae. There is left-sided curvature of the spine, seen on AP view. No acute fracture seen. There is grade 1 L4 on L5 anterolisthesis. The disc spaces are well preserved. There is mild osteophyte formation. Multilevel kissing spine seen on lateral view. Others: Questionable free abdominal air versus distended large bowel loops, just below the left hemidiaphragm. IMPRESSION IMPRESSION: Lumbar spine degenerative changes as described above. Regulatory Intern: [facility] Transcribe Date/Time: Oct 03 2022 2:43P Dictated by : QUEENIE LOWRY MD This examination was interpreted and the report reviewed and electronically signed by: QUEENIE LOWRY MD on Oct 03 2022 2:47PM EST [facility] XR Lumbar spine 3 ViewsOrder ed By: [facility] Provider on 10-03-2022 [facility] XR Thoracic spine AP and Lat eral and [place] 10-03-2022 IMPRESSION: Thoracic dextroscoliosis and exaggeration of the thoracic kyphosis. No compression fracture. Severe multilevel disc height loss. Regulatory Intern: ABBY Transcribe Date/Time: Oct 03 2022 10:21P Dictated by : GURJIT GA MD This examination was interpreted and the report reviewed and electronically signed by: GURJIT GA MD on Oct 03 2022 10:21PM [facility] DIVISION OF RADIOLOGY * * *Final Report* * * DATE OF EXAM: Oct 01 2022 10:46AM WOX 5261 - XR THORACIC 3V AP/LAT/SWIMMERS / PROCEDURE REASON: multiple diagnoses * * * * Physician Interpretation * * * * EXAMINATION / TECHNIQUE: XR THORACIC 3V AP/LAT/SWIMMERS HISTORY: Chronic back pain with bilateral arm numbness increasing over time. Kyphotic Chronic back pain, unspecified back location, unspecified back pain laterality Chronic back pain, unspecified back location, unspecified back pain laterality Kyphosis, unspecified kyphosis type, unspecified spinal region COMPARISON: Chest radiographs dated 12/18/2017. RESULT: No thoracic compression fracture is identified. There is exaggeration of the thoracic kyphosis. There is rightward curvature of the thoracic spine. Sagittal alignment is maintained. There is severe multilevel degenerative disc disease. DIVISION OF RADIOLOGY Provider, Juwan Frias - 10/03/2022 * * *Final Report* * * DATE OF EXAM: Oct 01 2022 10:46AM WOX 5261 - XR THORACIC 3V AP/LAT/SWIMMERS / PROCEDURE REASON: multiple diagnoses * * * * Physician Interpretation * * * * EXAMINATION / TECHNIQUE: XR THORACIC 3V AP/LAT/SWIMMERS HISTORY: Chronic back pain with bilateral arm numbness increasing over time. Kyphotic Chronic back pain, unspecified back location, unspecified back pain laterality Chronic back pain, unspecified back location, unspecified back pain laterality Kyphosis, unspecified kyphosis type, unspecified spinal region COMPARISON: Chest radiographs dated 12/18/2017. RESULT: No thoracic compression fracture is identified. There is exaggeration of the thoracic kyphosis. There is rightward curvature of the thoracic spine. Sagittal alignment is maintained. There is severe multilevel degenerative disc disease. IMPRESSION IMPRESSION: Thoracic dextroscoliosis and exaggeration of the thoracic kyphosis. No compression fracture. Severe multilevel disc height loss. Regulatory Intern: ABBY Transcribe Date/Time: Oct 03 2022 10:21P Dictated by : GURJIT GA MD This examination was interpreted and the report reviewed and electronically signed by: GURJIT GA MD on Oct 03 2022 10:21PM EST [facility] No Panel Informationon 10-01 Radiology Study observation (narrative) [facility] CT ABDOMEN WO IVCONon 2022 [facility] XR Chest PA and Lateralon IMPRESSION: Stable chest. No acute cardiopulmonary process. Regulatory Intern: ABBY Transcribe Date/Time: Mar 23 2021 1:58P Dictated by : KELLEN CHÁVEZ MD This examination was interpreted and the report reviewed and electronically signed by: KELLEN CHÁVEZ MD on Mar 23 2021 3:11PM [facility] DIVISION OF RADIOLOGY * * *Final Report* * * DATE OF EXAM: Mar 23 2021 12:31PM WOX 5291 - XR CHEST 2V FRONTAL/LAT / PROCEDURE REASON: Shortness of breath * * * * Physician Interpretation * * * * EXAMINATION: CHEST RADIOGRAPH (2 VIEW FRONTAL & LATERAL) CLINICAL HISTORY: Shortness of breath. MQ: XC2_6 EXAM DATE/TIME: 03/23/2021 12:31 PM COMPARISON: RESULT: Lines, tubes, and devices: None. Lungs and pleura: Chronic interstitial lung changes with lingular and bibasilar fibrotic scarring is unchanged dating back to 2018. There is no focal infiltrate/consolidation or acute pleural process. There is no vascular redistribution to suggest pulmonary edema. Cardiomediastinal silhouette: Unchanged cardiomediastinal silhouette with enlarged cardiac silhouette and unfolded thoracic aorta. Bones and soft tissues: The bony structures are osteopenic with accentuated dorsal kyphosis secondary to mild anterior volume loss of multiple mid and lower thoracic vertebral bodies. No acute compression deformities noted. DIVISION OF RADIOLOGY Provider, Juwan Monroe [facility] - 03/23/2021 * * *Final Report* * * DATE OF EXAM: Mar 23 2021 12:31PM WOX 5291 - XR CHEST 2V FRONTAL/LAT / PROCEDURE REASON: Shortness of breath * * * * Physician Interpretation * * * * EXAMINATION: CHEST RADIOGRAPH (2 VIEW FRONTAL & LATERAL) CLINICAL HISTORY: Shortness of breath. MQ: XC2_6 EXAM DATE/TIME: 03/23/2021 12:31 PM COMPARISON: RESULT: Lines, tubes, and devices: None. Lungs and pleura: Chronic interstitial lung changes with lingular and bibasilar fibrotic scarring is unchanged dating back to 2018. There is no focal infiltrate/consolidation or acute pleural process. There is no vascular redistribution to suggest pulmonary edema. Cardiomediastinal silhouette: Unchanged cardiomediastinal silhouette with enlarged cardiac silhouette and unfolded thoracic aorta. Bones and soft tissues: The bony structures are osteopenic with accentuated dorsal kyphosis secondary to mild anterior volume loss of multiple mid and lower thoracic vertebral bodies. No acute compression deformities noted. IMPRESSION IMPRESSION: Stable chest. No acute cardiopulmonary process. Regulatory Intern: [facility] Transcribe Date/Time: Mar 23 2021 1:58P Dictated by : KELLEN CHÁVEZ MD This examination was interpreted and the report reviewed and electronically signed by: KELLEN CHÁVEZ MD on Mar 23 2021 3:11PM EST [facility] Radiology Study observation (narrative) [facility] XR Chest PA and LateralOrder ed By: [facility] Provider on 03-23-2021 [facility] ANES Mai 04-10-2017 ANES POST HNO ID: [id number] thor: Aba Navarro VincentService: AnesthesiologyAuthor Type: AnesthesiologistType: Anesthesia PostOpFiled: 04/10/2017 4:35 PMNote Text:POST ANESTHESIA EVALUATION NOTESERVICE DATE: 04/10/2017SERVICE TIME: 4.34DOB: 1960Vitals: 04/10/1814Temp: 36.1 ?C (97 ?F) 36 ?C (96.8 ?F) 04/10/1814P: 143/74 140/76 139/74 138/70 04/10/1814Pulse: 72 68 68 72 04/10/1814Resp: 18 18 18 18 04/10/1814SpO2: 93% 93% 93% 93%Validated Vital Signs: YesPOST ANES STATUS: No apparent anesthetic complications. The patient isappropriately hydrated with stable respiratory and cardiovascular status.Patient has safe and adequate airway control. The patient has appropriatepain relief and no significant post operative nausea or vomiting. Thepatient has achieved baseline mental status.Further assessment by Anesthesia Service: NoneOther Remarks:SIGNATURE: Aba Wallace MD PATIENT NAME: Leyda LentzATE: April 10, 2017 : 4:34 PM PAGER/CONTACT #: anesthesia [facility] ANES PREOPon 04-10-2017 ANES PREOP HNO ID: [id number] thor: Angel LeónService: AnesthesiologyAuthor Type: AnesthesiologistType: Anesthesia PreOpFiled: 04/10/2017 10:22 AMNote Text: ANESTHESIOLOGY DAY OF SURGERY NOTESERVICE DATE: 04/10/2017SERVICE TIME: 10:22 AMDOB: 1960rocedure(s) (LRB):ARTHROSCOPY SHOULDER (Right)RECONSTRUCTION SHOULDER (Right)Surgeon(s):Sebas MolinaEstimated body mass index is 35.14 kg/(m2) as calculated from thefollowing: Height as of this encounter: 154.9 cm (5' 1). Weight as of this encounter: 84.4 kg (186 lb).Most recent hematocrit and potassium results:Hematocrit 44.5 04/05/2017Potassium 4.3 04/05/2017ANES DOS/PREOP NOTE: Vitals: 207956DD: 161/94Pulse: 61Resp: 18Temp: 36.1 ?C (97 ?F)TempSrc: Temporal ArterySpO2: 98%Weight: 84.4 kg (186 lb)Height: 154.9 cm (5' 1)ACTIVE PROBLEM LISTEssential HypertensionDepressive Disorder, Not Elsewhere ClassifiedPanic Disorder Without AgoraphobiaAsthmaHyperlipide miaDisorder of Bone and Cartilage, UnspecifiedBipolar affectiveCOPD (chronic obstructive pulmonary disease)Gerd (Gastroesophageal Reflux Disease)Calcaneal SpurPolymyositis ([facility])Gait AbnormalityIbs (Irritable Bowel Syndrome)Add (Attention Deficit Disorder)Abusive Physical Relationship With Partner Or SpouseNoncompliance With Medication RegimenPmr (Polymyalgia Rheumatica) ([facility])Apical Alveolar AbscessPyorrheaNon-St Elevation Myocardial Infarction (Nstemi), Initial Episode of Care([facility])FibromyalgiaTear of Right Rotator CuffCervical RadiculitisCervical Disc Disorder With RadiculopathyAcute On Chronic Diastolic Congestive Heart Failure ([facility])Nstemi (Non-St Elevated Myocardial Infarction) ([facility])Mitral RegurgitationObesityObstruct maria g Sleep Apnea SyndromeSummaryImpingement Syndrome of Right ShoulderCoronary Artery Disease Involving [place] Coronary Artery of [place] HeartWith Angina Pectoris ([facility])Atypical Chest PainPain Syndrome, ChronicComplete Tear of Right Rotator CuffCkd (Chronic Kidney Disease) Stage 3, Gfr 30-59 Ml/MinPAST MEDICAL HISTORYDiagnosis Date- Abdominal pain, right upper quadrant- ADD (attention deficit disorder) Seeing psychiatry- Anemia, unspecified- Asthma- Back pain chronic-Seeing Dr. Blankenship- Bipolar affective disorder ([facility])- Chronic right shoulder pain Seeing Dr. Molina- Closed dislocation of tarsometatarsal (joint) 01/18/2011- COPD (chronic obstructive pulmonary disease) ([facility])- Depressive disorder, not elsewhere classified 03/22/2005- Disorder of bone and cartilage, unspecified 02/09/2008- Distal radius fracture 01/05/2011- Dysuria- Fibromyalgia- GERD (gastroesophageal reflux disease)- IBS (irritable bowel syndrome)- Mitral regurgitation Severe- Neck pain chronic-takes vicodin for this- NSTEMI (non-ST elevated myocardial infarction) ([facility]) Seeing Dr. Hutton- JD (obstructive sleep apnea)- Other and unspecified hyperlipidemia- Panic disorder without agoraphobia 03/22/2005- PMR (polymyalgia rheumatica) ([facility])- RA (rheumatoid arthritis) ([facility])- Unspecified essential hypertension 03/22/2005PAST SURGICAL HISTORYProcedure Laterality Date- COLONOSCOP W/ OR W/O [facility] SPEC 01/23/08 Normal- COLONOSCOP W/ OR W/O [facility] SPEC 01/09/2012 Colonoscopy- EGD W/O [facility] SPECIMEN W/BX 01/23/08 Minimal antral gastritis- HEART CATHETERIZATION 01/2016 no intervention- Partial hysterectomy still has ovaries- PAST SURGICAL HISTORY OF 02/2016 total teeth extraction- REMV LENS MATERIAL,PHACOFRAGMT 12/2010 Cataract Extraction- REPAIR UMBILICAL FERNANDO,5+Y/O,REDUC 12/04/2016 Hernia repair, umbilical >5yrFAMILY HISTORYProblem Relation Age of Onset- Heart Father DC- COPD Father- Pulmonary fibrosis [OTHER] Father- COPD Mother- Breast Cancer MotherSocial History:Social HistorySubstance Use Topics- Smoking status: Former Smoker Packs/day: 0.50 Types: Cigarettes Start date: 1973 Quit date: 03/04/1989- Smokeless tobacco: Never Used Comment: Both parents smoked in childhood home. Lived with smoker asadult.- Alcohol use NoNo current facility-administered medications on file prior to encounter.Current Outpatient Prescriptions on File Prior to Encounter:lactulose (CONSTULOSE) 10 gram/15 mL solution Take 30 mL by mouth 3 timesa WEEK.zolpidem (AMBIEN) 5 mg tablet Take 1 tablet by mouth at bedtime as needed.furosemide (LASIX) 40 mg tablet Take 1 tablet by mouth once daily.predniSONE (DELTASONE) 10 mg tablet Take 1 tablet by mouth once daily.Pregabalin (LYRICA) 200 mg capsule Take 1 capsule by mouth three timesdaily. May fill on or after 01/31/17lisinopril (ZESTRIL, PRINIVIL) 40 mg tablet Take 0.5 tablets by mouth oncedaily.Dexlansoprazole (DEXILANT) 60 mg CpDM Take 60 mg by mouth once daily.potassium chloride (K-ZOEY, KLOR-CON) 20 mEq packet Take 20 mEq by mouthonce daily.ipratropium-albuterol (DUONEB) 0.5 mg-3 mg(2.5 mg base)/3 mL nebu Inhale 3mL as instructed four times daily. Inhale via nebulizer over 5-15 minutes.fluticasone (FLONASE) 50 mcg/actuation nasal spray USE TWO SPRAYS IN EACHNOSTRIL ONCE DAILY (RINSE MOUTH AFTER USE)docusate sodium (COLACE) 100 mg capsule Take 1 capsule by mouth twicedaily as needed.NITROGLYCERIN ORAL Take 1 tablet by mouth as needed (chest pain).dicyclomine (BENTYL) 10 mg capsule Take 1 capsule by mouth before mealsand at bedtime.atorvastatin (LIPITOR) 40 mg tablet Take 1 tablet by mouth daily atbedtime.aluminum-magnesium hydroxide-simethicone (MAALOX,MYLANTA,MAG-AL PLUS)200-200-20 mg/5 mL suspension Take 30 mL by mouth every 6 hours as needed.COMPOUNDED PRESCRIPTION Oxygen Conserving Device for AmbulationCOMPOUNDED PRESCRIPTION Home concentratorloperamide (IMODIUM) 2 mg cap(s) Take 1 capsule by mouth four times dailyas needed for Diarrhea.polyethylene glycol 3350 (MIRALAX) 17 gram/dose powder 1 capful asdirected daily for constipation.Cholecalciferol , Vitamin D3, 2,000 unit tab Take 2 tablets by mouth oncedaily.aspirin 81 mg chewable tablet CHEW AND SWALLOW ONE TABLET BY MOUTH ONCEDAILYipratropium (ATROVENT) 0.02 % nebulizer solution Use 2.5 mL via nebulizerfour times daily as needed for Wheezing/Shortness of Breath. Use over5-15minutes. Dx:J45.40Current Facility-Administered Medications:lactated ringers infusion 5-30 mL/hr INTRAVENOUS CONTINUOUS Vickie (Pa)Vetovitz Last Rate: 30 mL/hr at 04/10/17 1000 30 mL/hr at 04/10/17 1000clindamycin 600 mg in D5W 50 mL (CLEOCIN) 600 mg INTRAVENOUS Pre-Op OnceSondra (Pa) Vetovitzmidazolam (PF) 2 mg injection (VERSED) 2 mg INTRAVENOUS ONCE IsaíasdanielMaryergies:KULDIP RGIESAllergeerick Reactions- Combid [Other] Intolerance lockjaw- Ativan [Lorazepam] Mental Status Change, Vomiting mood swings- Baclofen Mental Status Change angry,mood effect- Methotrexate Vomiting abdomen pain,vomiting, sbo- Nadolol Intolerance body burning,tingly- Nexium [Esomeprazol* Other: See Comments reflux-no relief- Penicillin G GI Upset patient reports these symptoms after medication was ordered- Propranolol Intolerance fatigue,sleepyDOS EXAM: Adequate NPO status: YesAnesthetic risks, benefits, alternatives, personnel and consent discussed:YesPatient agrees to proceed: YesPrevious Anesthesia: No history of adverse event.Airway Assessment: MP 2; Neck ROM: Full ROM without neurologic symptoms;Airway Evaluation: No significant abnormalitiesSymptoms of Sleep Apnea: NoneDentition: Teeth intactAdditional Physical Exam:Lungs: Patient health status unchanged since recent history and physical.See history and physical for exam findings.Cardiac: Patient health status unchanged since recent history andphysical. See history and physical for exam findings.Additional Pertinent Findings: N/ABlood Products: Not anticipated for this procedure.Anesthetic Plan: General, Standard ASA Monitors and Block with SedationPain Management Plan: Parenteral or OralASA Class: 3Other Medical Problems:chfnstemicadI have interviewed and examined the patient. I have reviewed the medicalrecord and/or the pre-anesthesia evaluation, pertinent labs, and testresults.Significant changes in the patient's condition since the History andPhysical, not otherwise documented in primary service progress notes: NoThis contains updated information obtained within 48 hours ofSurgery/Procedure.SIGNATUR E: Angel León MD PATIENT NAME: Leyda LentzATE: April 10, 2017 : 10:22 AM CSN: [id number] [facility] NURSING PROGon 04-10-2017 NURSING PROG HNO ID: [id number] thor: Michelle (Rn) Dianna RNService: NursingAuthor Type: Registered NurseType: Nursing Progress NoteFiled: 04/10/2017 12:22 PMNote Text: at bedside for U/S guided Right Interscalene nerve block. RNat bedside, pt monitored throughout, BP 163/76 Pulse (!) 56 Temp 36.1?C (97 ?F) (Temporal Artery) Resp 18 Ht 154.9 cm (5' 1) Wt 84.4 kg(186 lb) SpO2 99% BMI 35.14 kg/m2 .Pt tolerated procedure withoutdifficulty. Versed 2 mg IV was given at 1158. Pt sleeping after PNBcompleted Normal [facility] OPERATIVE NOon 04-10-2017 OPERATIVE NO HNO ID: [id number] thor: Sebas MolinaSerbernarde: Orthopaedic SurgeryAuthor Type: PhysicianType: Operative ReportFiled: 04/12/2017 9:50 AMNote Text:OPERATIVE/PROCEDURE REPORTLOG ID: [id number]/Procedure Date: 04/10/2017Incision/Procedure Start Time: 1:15 PMIncision Close/Procedure End Time: 2:55 PMSurgeon(s)/Proceduralist(s ) and County Adviser(s):Surgeon(s) and Role: * Sebas Molina - PrimaryNurse Practitioner: Nell Greenberg) PfaffelProcedure(s):Right shoulder arthroscopy with open subacromial decompression; rotatorcuff repair, chronic.Pre-op Diagnosis: Right shoulder, rotator cuff tear, chronic;Subacromical impingement.Post-op Diagnosis: SameAnesthesia: GeneralProcedure Details: This is a pleasant 56-year-old female who had continuedwith pain and functional weakness on the right shoulder. MRI showed alarge supraspinatus tear with a delaminating portion of his infraspinatus. The risks, benefits, alternatives and potential complications werereviewed and she wished to pursue surgery on the right.On 04/10/2017, the patient was clearly identified in the preoperative areaand marked accordingly on the right shoulder by myself. Anesthesiaapplied a preoperative regional block. She also received 600mg ofClindamycin in the IV within 1 hour of incision. She was taken to theoperative suite and placed in a modified beachchair position and theanesthesia team placed a airway using a glyde scope. All bony landmarkswere properly padded in standard fashion and her cervical spine was anappropriate positioning. The right shoulder and arm was then sterilelyprepped and draped in standard fashion. An appropriate time out wasconducted and all in the room were in agreement, signed consent form wason the chart, images were available for viewing, and implants were in theroom. A spinal needle was used in the posterior lateral corner of theshoulder to identify the joint and this was insufflated with 50 cc ofarthroscopic irrigant. A stab incision with an 11 blade was then made. Ablunt cannula was used to enter the joint with one pass, atraumatically.Diagnostic arthroscopy was performed that showed some synovitis, normalbiceps tendon and its intra-articular attachment. Furthermore theglenohumeral articular surfaces appeared rather pristine. SubscapularisLooked normal. A full-thickness tear of supraspinatus and infraspinatuswas identified and only the most posterior portion of the cuff appeared zhao completely intact. I made a standard anterior portal and with myablator and debrided some of the synovitis intra-articularly. I then cameinto the subacromial space which showed quite a bit of bursitis which Itook down with the cool cut ablator. The rotator cuff tear was readilyidentified and was complex in nature as it had detached from the footprintanteriorly along the course of the supraspinatus and infraspinatus tendonswith significant retraction. With this geometry, I opted to perform theremaining portion of the procedure with a mini open incision. Thearthroscopic portals were sealed with Ioban draping.A 3 cm incision was made off the anterior lateral corner of the shoulderalong Langher's lines. I came full-thickness through the dermis,hemostasis was maintained with insulated tip Bovie. Metzenbaum scissorswere used to perform skin flaps, again maintaining hemostasis. Thedeltoid fascia was identified as was the anterior lateral raphae of themuscle. I came down full thickness on the edge of the acromion and placeda joker in the subacromial space producing arthroscopic irrigant,confirming the large, full thickness tear with retraction off the humeralhead, posteriorly. I came down through the deltoid no more than 3 cm carolina appropriate deltoid split. Gelpi retractors were placed forvisualization of the greater tuberosity and rotator cuff from anterior toposterior. Again, the geometry was confirmed showing full-thickness tearoff the supraspinatus, posterior towards the infraspinatus nearly 3-4 cm.There was an impressive overhanging spur on the lateral portion of theacromion and I took a half-inch, thin, beveled osteotome and completed anice decompression as well as taking off the lateral, sharp edge. Thisprovided a excellent, smooth subacromial surface. I first placed a numberstay stitches with Tycron sutures in both the supraspinatus andinfraspinatus. With traction and freeing adhesions with the Rosa, I wasable to pull the front corner up to their original footprint. The greatertuberosity was roughened up with Rongour to get a nice bleeding surface.I then used a 5.5 mm corkscrew from Arthrex and placed this in theanterior corner on the footprint just posterior to the interval. I thenplaced a horizontal mattress suture with 2 limbs of my tiger wire and 2limbs of the FiberWire through the supra. I then placed a second anchorin the posterior portion of the footprint and sent my 4 limbs through inhorizontal mattress fashion in the infra. I also place two separate ripstop sutures in side to side fashion where there were two slightlongitudinal splits in both infra and supra. I then tied down my anteriorand posterior leaflets creating an excellent watertight seal with anexcellent repair. I then took my 4 strands of each anchor and crossedthem over one another and placed them through two separate swivel lockanchors, bringing this over laterally for double row effect. There was debbie nicely smoothed interface now between the tendon and the subacromialarch. No impingement on the repair. The shoulder was copiouslyirrigated. I next focused my attention on a meticulous deltoid closurewith my first Tycron suture tied over a bony bridge on the acromion withfull-thickness deltoid repair. A series of full-thickness, figure of 8sutures in the deltoid and then I ran the fascia with a 2-0 Polysorbrunning locked suture. The skin edges were closely approximated withburied, 3-0 Biosyn suture. Final closure of both the mini open as well asthe arthroscopic portals was completed with a 3?0 Surgipro. Steri-Strips,Xeroform gauze, sterile 4 x 4's, 2 ABDs and Medipore tape was used forfinal bandage. The patient was placed in a sling with abduction pillow.She was safely awoken and transferred to the postanesthetic care unit instable condition.Specimens: NoneDrains: NoneEBL: noneComplications: none:Implants: Arthrex 5.5mm biocorkscrew x 2 and two Arthrex Swivel lockanchors.I performed the procedure with assistance and for closure.SIGNATURE: Sebas Molina MD PATIENT NAME: Leyda LentzATE: April 10, 2017 : 3:17 PM PAGER/CONTACT #: [facility] PLAN OF CAREon 04-10-2017 PLAN OF CARE HNO ID: [id number] thor: Frida Desai (Fire Assistant)Service: (none)Author Type: (none)Type: Plan of CareFiled: 04/10/2017 4:23 PMNote Text:FIELD MACHINIST BEDSIDE DELIVERY SURVEY1. Patient to use [facility] Bedside Delivery - YES2. If fax, patient would like us to fax prescriptions to Pharmacy ofchoice a. Pharmacy: b. Location: c. Phone:3. Insurance card on file - YES4. Credit card for payment - YESPHARMACY BEDSIDE DELIVERY SERVICEPatient Name: Leyda LopezMRN: [id number] marked outpatient medications were Filled at: [place] and delivered tothe patient's bedside to pharm p/uMedication ListSTART taking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 07-26-2024 15:28-0400 Inhaled oxygen flow rate 2 L/min DALI OLDER [employer] Work Phone: 4(222)975-964845 [place] [address] 07-26-2024 13:28-0400 Body height 144.78 cm DALI OLDER [employer] Work Phone: 8(057)297-907044 [place] [address] 06-29-2024 14:58-0400 Body mass index (BMI) [Ratio] 30.83 kg/m2 Dali Older [employer]CRUBBER SYSTEM ATTENDANT.PLATE FILLER Work Phone: [facility] 06-29-2024 14:58-0400 Body weight 65.77 kg Dali Older [employer]CRU[employer]ER SYSTEM ATTENDANT.PLATE FILLER Work Phone: [facility] 06-29-2024 14:58-0400 Diastolic blood pressure 72 mm[Hg] Dali Older SCRU[employer]ER SYSTEM ATTENDANT.PLATE FILLER Work Phone: [facility] 06-29-2024 14:58-0400 Heart rate 72 /min Dali Older SCRUBBER SYSTEM ATTENDANT.PLATE FILLER Work Phone: [facility] 06-29-2024 14:58-0400 Respiratory rate 16 /min Dali Older SCRUBBER SYSTEM ATTENDANT.PLATE FILLER Work Phone: [facility] 06-29-2024 14:58-0400 SaO2% (BldA) [Mass fraction] 98 % Dali Older SCRUBBER SYSTEM ATTENDANT.PLATE FILLER Work Phone: [facility] 06-29-2024 14:58-0400 Systolic blood pressure 116 mm[Hg] Dali Older SCRUBBER SYSTEM ATTENDANT.PLATE FILLER Work Phone: [facility] 06-19-2024 10:09-0400 Body mass index (BMI) [Ratio] 30.2 kg/m2 Dali Older SCRUBBER SYSTEM ATTENDANT.PLATE FILLER Work Phone: [facility] 06-19-2024 10:09-0400 Body weight 64.41 kg Dali Older SCRUBBER SYSTEM ATTENDANT.PLATE FILLER Work Phone: [facility] 06-19-2024 10:09-0400 Diastolic blood pressure 66 mm[Hg] Dali Older SCRUBBER SYSTEM ATTENDANT.PLATE FILLER Work Phone: [facility] 06-19-2024 10:09-0400 Heart rate 68 /min Dali Older SCRUBBER SYSTEM ATTENDANT.PLATE FILLER Work Phone: [facility] 06-19-2024 10:09-0400 Respiratory rate 16 /min Dali Older SCRUBBER SYSTEM ATTENDANT.PLATE FILLER Work Phone: [facility] 06-19-2024 10:09-0400 SaO2% (BldA) [Mass fraction] 94 % Dali Older SCRUBBER SYSTEM ATTENDANT.PLATE FILLER Work Phone: [facility] 06-19-2024 10:09-0400 Systolic blood pressure 128 mm[Hg] Dali Older SCRUBBER SYSTEM ATTENDANT.PLATE FILLER Work Phone: [facility] 05-08-2024 15:40-0500 Body mass index (BMI) [Ratio] 30.96 kg/m2 Velvet Palacio MD Work Phone: [facility] 05-08-2024 15:40-0500 Body weight 66.04 kg Velvet Palacio MD Work Phone: [facility] 05-08-2024 15:40-0500 Diastolic blood pressure 83 mm[Hg] Velvet Palacio MD Work Phone: [facility] 05-08-2024 15:40-0500 Heart rate 81 /min Velvet Palacio MD Work Phone: [facility] 05-08-2024 15:40-0500 Respiratory rate 20 /min Velvet Palacio MD Work Phone: [facility] 05-08-2024 15:40-0500 SaO2% (BldA) [Mass fraction] 96 % Velvet Palacio MD Work Phone: [facility] Comment on above: O2: 4 L/min 05-08-2024 15:40-0500 Systolic blood pressure 143 mm[Hg] Velvet Palacio MD Work Phone: [facility] 05-03-2024 14:33-0500 Body temperature 98.7 [degF] DALI OLDER [employer]C Work Phone: [facility] 05-03-2024 14:33-0500 Diastolic blood pressure 90 mm[Hg] DALI OLDER [employer]C Work Phone: [facility] 05-03-2024 14:33-0500 Heart rate 79 /min DALI OLDER [employer] Work Phone: [facility] 05-03-2024 14:33-0500 Inhaled oxygen flow rate 2 L/min DALI OLDER [employer] Work Phone: [facility] 05-03-2024 14:33-0500 Respiratory rate 16 /min DALI OLDER [employer]C Work Phone: [facility] 05-03-2024 14:33-0500 SaO2% (BldA) [Mass fraction] 99 % DALI OLDER [employer] Work Phone: [facility] 05-03-2024 14:33-0500 Systolic blood pressure 124 mm[Hg] DALI OLDER [employer] Work Phone: [facility] 05-02-2024 10:33-0500 Body weight 66.2 kg DALI OLDER [employer] Work Phone: [facility] 05-01-2024 18:44-0500 Body mass index (BMI) [Ratio] 31.6 kg/m2 DALI OLDER [employer] Work Phone: [facility] 04-02-2024 10:56-0500 Body mass index (BMI) [Ratio] 30.2 kg/m2 Dali Older S[employer]ER SYSTEM ATTENDANT.PLATE FILLER Work Phone: [facility] 04-02-2024 10:56-0500 Body weight 64.41 kg Dali Older SCRUBBER SYSTEM ATTENDANT.PLATE FILLER Work Phone: [facility] 04-02-2024 10:56-0500 Diastolic blood pressure 82 mm[Hg] Dali Older SCRUBBER SYSTEM ATTENDANT.PLATE FILLER Work Phone: [facility] 04-02-2024 10:56-0500 Heart rate 76 /min Dali Older SCRUBBER SYSTEM ATTENDANT.PLATE FILLER Work Phone: [facility] 04-02-2024 10:56-0500 Respiratory rate 16 /min Dali Older SCRUBBER SYSTEM ATTENDANT.PLATE FILLER Work Phone: [facility] 04-02-2024 10:56-0500 SaO2% (BldA) [Mass fraction] 95 % Dali Older SCRUBBER SYSTEM ATTENDANT.PLATE FILLER Work Phone: [facility] 04-02-2024 10:56-0500 Systolic blood pressure 136 mm[Hg] Dali Older SCRUBBER SYSTEM ATTENDANT.PLATE FILLER Work Phone: [facility] 01-16-2024 14:33-0500 Heart rate 85 /min Nuris Prebish SCRUBBER SYSTEM ATTENDANT.PLATE FILLER Work Phone: [facility] 01-16-2024 14:33-0500 Respiratory rate 16 /min Nuris Prebish SCRUBBER SYSTEM ATTENDANT.PLATE FILLER Work Phone: [facility] 01-16-2024 14:33-0500 SaO2% (BldA) [Mass fraction] 95 % Nuris Prebish SCRUBBER SYSTEM ATTENDANT.PLATE FILLER Work Phone: [facility] 12-11-2023 13:55-0400 Body mass index (BMI) [Ratio] 27.43 kg/m2 Dali Older SCRUBBER SYSTEM ATTENDANT.PLATE FILLER Work Phone: [facility] 12-11-2023 13:55-0400 Body weight 58.51 kg Dali Older SCRUBBER SYSTEM ATTENDANT.PLATE FILLER Work Phone: [facility] 12-11-2023 13:55-0400 Diastolic blood pressure 80 mm[Hg] Dali Older SCRUBBER SYSTEM ATTENDANT.PLATE FILLER Work Phone: [facility] 12-11-2023 13:55-0400 Heart rate 77 /min Dali Older SCRUBBER SYSTEM ATTENDANT.PLATE FILLER Work Phone: [facility] 12-11-2023 13:55-0400 Respiratory rate 16 /min Dali Older SCRUBBER SYSTEM ATTENDANT.PLATE FILLER Work Phone: [facility] 12-11-2023 13:55-0400 SaO2% (BldA) [Mass fraction] 97 % Dali Older SCRUBBER SYSTEM ATTENDANT.PLATE FILLER Work Phone: [facility] 12-11-2023 13:55-0400 Systolic blood pressure 128 mm[Hg] Dali Older SCRUBBER SYSTEM ATTENDANT.PLATE FILLER Work Phone: [facility] 11-12-2023 13:03-0400 Diastolic blood pressure 106 mm[Hg] Mari Martinez SCRUBBER SYSTEM ATTENDANT.PLATE FILLER Work Phone: [facility] 11-12-2023 13:03-0400 Heart rate 85 /min Mari Martinez SCRUBBER SYSTEM ATTENDANT.PLATE FILLER Work Phone: [facility] 11-12-2023 13:03-0400 Systolic blood pressure 174 mm[Hg] Mari Martinez SCRUBBER SYSTEM ATTENDANT.PLATE FILLER Work Phone: [facility] 11-12-2023 13:01-0400 Body height 146.1 cm Mari Martinez SCRUBBER SYSTEM ATTENDANT.PLATE FILLER Work Phone: [facility] 11-12-2023 13:01-0400 Body mass index (BMI) [Ratio] 27.01 kg/m2 Mari Martinez SCRUBBER SYSTEM ATTENDANT.PLATE FILLER Work Phone: [facility] 11-12-2023 13:01-0400 Body temperature 98.01 [degF] Mari Martinez SCRUBBER SYSTEM ATTENDANT.PLATE FILLER Work Phone: [facility] 11-12-2023 13:01-0400 Body weight 57.61 kg Mari Martinez SCRUBBER SYSTEM ATTENDANT.PLATE FILLER Work Phone: [facility] 11-06-2023 14:28-0400 Diastolic blood pressure 92 mm[Hg] Dali Older SCRUBBER SYSTEM ATTENDANT.PLATE FILLER Work Phone: [facility] 11-06-2023 14:28-0400 Systolic blood pressure 138 mm[Hg] Dali Older SCRUBBER SYSTEM ATTENDANT.PLATE FILLER Work Phone: [facility] 11-06-2023 14:13-0400 Body mass index (BMI) [Ratio] 27.43 kg/m2 Dali Older SCRUBBER SYSTEM ATTENDANT.PLATE FILLER Work Phone: [facility] 11-06-2023 14:13-0400 Body weight 58.51 kg Dali Older SCRUBBER SYSTEM ATTENDANT.PLATE FILLER Work Phone: [facility] 11-06-2023 14:13-0400 Heart rate 88 /min Dali Older SCRUBBER SYSTEM ATTENDANT.PLATE FILLER Work Phone: [facility] 11-06-2023 14:13-0400 Respiratory rate 16 /min Dali Older SCRUBBER SYSTEM ATTENDANT.PLATE FILLER Work Phone: [facility] 11-06-2023 14:13-0400 SaO2% (BldA) [Mass fraction] 86 % Dali Older SCRUBBER SYSTEM ATTENDANT.PLATE FILLER Work Phone: [facility] 10-22-2023 12:43-0400 Diastolic blood pressure 86 mm[Hg] Ines Bogner PA-C Work Phone: [facility] 10-22-2023 12:43-0400 Systolic blood pressure 162 mm[Hg] Ines Bogner PA-C Work Phone: [facility] 10-22-2023 12:16-0400 Body height 146.1 cm Ines Bogner PA-C Work Phone: [facility] 10-22-2023 12:16-0400 Body mass index (BMI) [Ratio] 27.22 kg/m2 Ines Bogner PA-C Work Phone: [facility] 10-22-2023 12:16-0400 Body weight 58.06 kg Ines Bogner PA-C Work Phone: [facility] 10-22-2023 12:16-0400 Heart rate 95 /min Ines Bogner PA-C Work Phone: [facility] 10-22-2023 12:16-0400 Respiratory rate 16 /min Ines Bogner PA-C Work Phone: [facility] 10-22-2023 12:16-0400 SaO2% (BldA) [Mass fraction] 98 % Ines Bogner PA-C Work Phone: [facility] Comment on above: on 6 liters of O2 09-27-2023 11:06-0400 Body mass index (BMI) [Ratio] 26.72 kg/m2 Kush Guthrie APRN.PLATE FILLER Work Phone: [facility] 09-27-2023 11:06-0400 Body temperature 97.59 [degF] Kush Guthrie APRN.PLATE FILLER Work Phone: [facility] 09-27-2023 11:06-0400 Body weight 57 kg Kush Guthrie APRN.PLATE FILLER Work Phone: [facility] 09-27-2023 11:06-0400 Diastolic blood pressure 92 mm[Hg] Kush Pendlebury SCRUBBER SYSTEM ATTENDANT.PLATE FILLER Work Phone: [facility] 09-27-2023 11:06-0400 Heart rate 73 /min Kush Pendlebury SCRUBBER SYSTEM ATTENDANT.PLATE FILLER Work Phone: [facility] 09-27-2023 11:06-0400 Respiratory rate 20 /min Kush Pendlebury SCRUBBER SYSTEM ATTENDANT.PLATE FILLER Work Phone: [facility] 09-27-2023 11:06-0400 SaO2% (BldA) [Mass fraction] 99 % Kush Hernándezlebury SCRUBBER SYSTEM ATTENDANT.PLATE FILLER Work Phone: [facility] 09-27-2023 11:06-0400 Systolic blood pressure 147 mm[Hg] Kush Pendlebury SCRUBBER SYSTEM ATTENDANT.PLATE FILLER Work Phone: [facility] 07-05-2023 15:07-0400 SaO2% (BldA) [Mass fraction] 99 % Radha Willams MD Work Phone: [facility] 06-10-2023 13:49-0400 Diastolic blood pressure 100 mm[Hg] Fernando Fernandez SCRUBBER SYSTEM ATTENDANT.SECURITY ESCORT Work Phone: [facility] 06-10-2023 13:49-0400 Heart rate 87 /min Fernando Fernandez SCRUBBER SYSTEM ATTENDANT.SECURITY ESCORT Work Phone: [facility] 06-10-2023 13:49-0400 Systolic blood pressure 155 mm[Hg] Fernando Fernandez SCRUBBER SYSTEM ATTENDANT.SECURITY ESCORT Work Phone: [facility] 06-10-2023 13:42-0400 Body weight 58.51 kg Fernando Fernandez SCRUBBER SYSTEM ATTENDANT.SECURITY ESCORT Work Phone: [facility] 06-10-2023 13:42-0400 Respiratory rate 16 /min Fernando Fernandez SCRUBBER SYSTEM ATTENDANT.SECURITY ESCORT Work Phone: [facility] 06-10-2023 13:42-0400 SaO2% (BldA) [Mass fraction] 99 % Fernando Fernandez SCRUBBER SYSTEM ATTENDANT.SECURITY ESCORT Work Phone: [facility] 06-06-2023 13:07-0400 Body temperature 98.2 [degF] CARPET BINDER-C DALI OLDER Work Phone: [facility] 06-06-2023 13:07-0400 Diastolic blood pressure 85 mm[Hg] CARPET BINDER-C DALI OLDER Work Phone: [facility] 06-06-2023 13:07-0400 Heart rate 90 /min CARPET BINDER-C DALI OLDER Work Phone: [facility] 06-06-2023 13:07-0400 Inhaled oxygen flow rate 2 L/min CARPET BINDER-C DALI OLDER Work Phone: [facility] 06-06-2023 13:07-0400 Respiratory rate 18 /min CARPET BINDER-C DALI OLDER Work Phone: [facility] 06-06-2023 13:07-0400 SaO2% (BldA) [Mass fraction] 92 % CARPET BINDER-C DALI OLDER Work Phone: [facility] 06-06-2023 13:07-0400 Systolic blood pressure 117 mm[Hg] CARPET BINDER-C DALI OLDER Work Phone: [facility] 06-05-2023 15:48-0400 Body height 154.94 cm CARPET BINDER-C DALI OLDER Work Phone: [facility] 06-05-2023 15:48-0400 Body weight 58.7 kg CARPET BINDER-C DALI OLDER Work Phone: [facility] 06-04-2023 17:09-0400 Body mass index (BMI) [Ratio] 24.4 kg/m2 CARPET BINDER-C DALI OLDER Work Phone: [facility] 06-04-2023 16:13-0400 Inhaled oxygen flow rate 6 L/min CARPET BINDER-C DALI OLDER Work Phone: [facility] 06-04-2023 16:13-0400 SaO2% (BldA) [Mass fraction] 93 % CARPET BINDER-C DALI OLDER Work Phone: [facility] 06-04-2023 16:07-0400 Heart rate 94 /min CARPET BINDER-C DALI OLDER Work Phone: [facility] 06-04-2023 16:07-0400 Respiratory rate 26 /min CARPET BINDER-C DALI OLDER Work Phone: [facility] 06-04-2023 16:00-0400 Diastolic blood pressure 172 mm[Hg] CARPET BINDER-C DALI OLDER Work Phone: [facility] 06-04-2023 16:00-0400 Inhaled oxygen concentration 40 % CARPET BINDER-C DALI OLDER Work Phone: [facility] 06-04-2023 16:00-0400 Systolic blood pressure 212 mm[Hg] CARPET BINDER-C DALI OLDER Work Phone: [facility] 06-04-2023 15:00-0400 Body temperature 98 [degF] CARPET BINDER-C DALI OLDER Work Phone: [facility] 06-04-2023 11:14-0400 Body height 154.94 cm CARPET BINDER-C DALI OLDER Work Phone: [facility] 06-04-2023 11:14-0400 Body mass index (BMI) [Ratio] 25.3 kg/m2 CARPET BINDER-C DALI OLDER Work Phone: [facility] 06-04-2023 11:14-0400 Body weight 60.9 kg CARPET BINDER-C DALI OLDER Work Phone: [facility] 05-20-2023 12:07-0400 Inhaled oxygen flow rate 3 L/min CARPET BINDER-C DALI OLDER Work Phone: [facility] 05-20-2023 12:07-0400 SaO2% (BldA) [Mass fraction] 90 % CARPET BINDER-C DALI OLDER Work Phone: [facility] 05-20-2023 11:50-0400 Body temperature 98.1 [degF] CARPET BINDER-C DALI OLDER Work Phone: [facility] 05-20-2023 11:50-0400 Diastolic blood pressure 79 mm[Hg] CARPET BINDER-C DALI OLDER Work Phone: [facility] 05-20-2023 11:50-0400 Heart rate 87 /min CARPET BINDER-C DALI OLDER Work Phone: [facility] 05-20-2023 11:50-0400 Respiratory rate 18 /min CARPET BINDER-C DALI OLDER Work Phone: [facility] 05-20-2023 11:50-0400 Systolic blood pressure 134 mm[Hg] CARPET BINDER-C DALI OLDER Work Phone: [facility] 05-17-2023 14:40-0400 Body height 154.94 cm CARPET BINDER-C DALI OLDER Work Phone: [facility] 05-17-2023 14:40-0400 Body weight 53.6 kg CARPET BINDER-C DALI OLDER Work Phone: [facility] 05-11-2023 14:51-0500 Body mass index (BMI) [Ratio] 22.3 kg/m2 CARPET BINDER-C DALI OLDER Work Phone: [facility] 05-11-2023 13:45-0500 Diastolic blood pressure 96 mm[Hg] [facility] 05-11-2023 13:45-0500 Heart rate 112 /min [facility] 05-11-2023 13:45-0500 Respiratory rate 16 /min [facility] 05-11-2023 13:45-0500 SaO2% (BldA) [Mass fraction] 97 % [facility] 05-11-2023 13:45-0500 Systolic blood pressure 152 mm[Hg] [facility] 05-11-2023 13:11-0500 Inhaled oxygen flow rate 2 L/min [facility] 05-11-2023 11:15-0500 Body height 152.[address] [facility] 05-11-2023 11:15-0500 Body mass index (BMI) [Ratio] 24.8 kg/m2 [facility] 05-11-2023 11:15-0500 Body temperature 97.4 [degF] [facility] 05-11-2023 11:15-0500 Body weight 57.[address] [facility] 05-02-2023 09:43-0500 Diastolic blood pressure 110 mm[Hg] Dali Older SCRUBBER SYSTEM ATTENDANT.PLATE FILLER Work Phone: [facility] 05-02-2023 09:43-0500 Systolic blood pressure 175 mm[Hg] Dali Older SCRUBBER SYSTEM ATTENDANT.PLATE FILLER Work Phone: [facility] 05-02-2023 09:34-0500 Body weight 57.61 kg Dali Older SCRUBBER SYSTEM ATTENDANT.PLATE FILLER Work Phone: [facility] 05-02-2023 09:34-0500 Heart rate 84 /min Dali Older SCRUBBER SYSTEM ATTENDANT.PLATE FILLER Work Phone: [facility] 05-02-2023 09:34-0500 Respiratory rate 16 /min Dali Older SCRUBBER SYSTEM ATTENDANT.PLATE FILLER Work Phone: [facility] 05-02-2023 09:34-0500 SaO2% (BldA) [Mass fraction] 97 % Dali Older SCRUBBER SYSTEM ATTENDANT.PLATE FILLER Work Phone: [facility] 11-14-2022 15:05-0400 Diastolic blood pressure 81 mm[Hg] [facility] 11-14-2022 15:05-0400 Heart rate 79 /min [facility] 11-14-2022 15:05-0400 Systolic blood pressure 148 mm[Hg] [facility] 11-14-2022 10:47-0400 Body height 154.[address] [facility] 11-14-2022 10:47-0400 Body temperature 96.5 [degF] [facility] 11-14-2022 10:47-0400 Respiratory rate 20 /min [facility] 11-14-2022 10:47-0400 SaO2% (BldA) [Mass fraction] 100 % [facility] 10-10-2022 16:00-0400 Respiratory rate 16 /min [facility] 08-09-2023 14:29-0400 Body temperature 97.5 [degF] [facility] 10-10-2022 14:29-0400 Diastolic blood pressure 80 mm[Hg] [facility] 10-10-2022 14:29-0400 Heart rate 53 /min [facility] 10-10-2022 14:29-0400 SaO2% (BldA) [Mass fraction] 100 % [facility] 10-10-2022 14:29-0400 Systolic blood pressure 120 mm[Hg] [facility] 10-09-2022 15:42-0400 Body mass index (BMI) [Ratio] 20.9 kg/m2 [facility] 10-09-2022 15:42-0400 Body weight 50.[address] [facility] 10-01-2022 08:30-0400 Body temperature 97.81 [degF] Dali Older SCRUBBER SYSTEM ATTENDANT.PLATE FILLER Work Phone: [facility] 10-01-2022 08:30-0400 Diastolic blood pressure 78 mm[Hg] Dali Older SCRUBBER SYSTEM ATTENDANT.PLATE FILLER Work Phone: [facility] 10-01-2022 08:30-0400 Heart rate 68 /min Dali Older SCRUBBER SYSTEM ATTENDANT.PLATE FILLER Work Phone: [facility] 10-01-2022 08:30-0400 Respiratory rate 16 /min Dali Older SCRUBBER SYSTEM ATTENDANT.PLATE FILLER Work Phone: [facility] 10-01-2022 08:30-0400 SaO2% (BldA) [Mass fraction] 96 % Dali Older SCRUBBER SYSTEM ATTENDANT.PLATE FILLER Work Phone: [facility] 10-01-2022 08:30-0400 Systolic blood pressure 118 mm[Hg] Dali Older SCRUBBER SYSTEM ATTENDANT.PLATE FILLER Work Phone: [facility] 01-31-2022 10:44-0500 Body weight 58.06 kg Dali Older SCRUBBER SYSTEM ATTENDANT.PLATE FILLER Work Phone: [facility] 01-31-2022 10:44-0500 Diastolic blood pressure 80 mm[Hg] Dali Older SCRUBBER SYSTEM ATTENDANT.PLATE FILLER Work Phone: [facility] 01-31-2022 10:44-0500 Heart rate 72 /min Dali Older SCRUBBER SYSTEM ATTENDANT.PLATE FILLER Work Phone: [facility] 01-31-2022 10:44-0500 Respiratory rate 16 /min Dali Older SCRUBBER SYSTEM ATTENDANT.PLATE FILLER Work Phone: [facility] 01-31-2022 10:44-0500 Systolic blood pressure 128 mm[Hg] Dali Older SCRUBBER SYSTEM ATTENDANT.PLATE FILLER Work Phone: [facility] 01-03-2022 13:02-0400 Body weight 55.79 kg Dali Older SCRUBBER SYSTEM ATTENDANT.PLATE FILLER Work Phone: [facility] 01-03-2022 13:02-0400 Diastolic blood pressure 80 mm[Hg] Dali Older SCRUBBER SYSTEM ATTENDANT.PLATE FILLER Work Phone: [facility] 01-03-2022 13:02-0400 Heart rate 80 /min Dali Older SCRUBBER SYSTEM ATTENDANT.PLATE FILLER Work Phone: [facility] 01-03-2022 13:02-0400 Respiratory rate 16 /min Dali Older SCRUBBER SYSTEM ATTENDANT.PLATE FILLER Work Phone: [facility] 01-03-2022 13:02-0400 Systolic blood pressure 128 mm[Hg] Dali Older SCRUBBER SYSTEM ATTENDANT.PLATE FILLER Work Phone: [facility] 07-26-2021 14:24-0400 Diastolic blood pressure 93 mm[Hg] Dali Older SCRUBBER SYSTEM ATTENDANT.PLATE FILLER Work Phone: [facility] 07-26-2021 14:24-0400 Systolic blood pressure 154 mm[Hg] Dali Older SCRUBBER SYSTEM ATTENDANT.PLATE FILLER Work Phone: [facility] 07-26-2021 13:17-0400 Body weight 58.97 kg Dali Older SCRUBBER SYSTEM ATTENDANT.PLATE FILLER Work Phone: [facility] 07-26-2021 13:17-0400 Heart rate 88 /min Dali Older SCRUBBER SYSTEM ATTENDANT.PLATE FILLER Work Phone: [facility] 07-26-2021 13:17-0400 Respiratory rate 16 /min Dali Older SCRUBBER SYSTEM ATTENDANT.PLATE FILLER Work Phone: [facility] 06-26-2021 14:09-0400 Diastolic blood pressure 88 mm[Hg] Dali Older SCRUBBER SYSTEM ATTENDANT.PLATE FILLER Work Phone: [facility] 06-26-2021 14:09-0400 Systolic blood pressure 138 mm[Hg] Dali Older SCRUBBER SYSTEM ATTENDANT.PLATE FILLER Work Phone: [facility] 06-26-2021 13:22-0400 Body weight 60.78 kg Dali Older SCRUBBER SYSTEM ATTENDANT.PLATE FILLER Work Phone: [facility] 06-26-2021 13:22-0400 Heart rate 72 /min Dali Older SCRUBBER SYSTEM ATTENDANT.PLATE FILLER Work Phone: [facility] 06-26-2021 13:22-0400 Respiratory rate 16 /min Dali Older SCRUBBER SYSTEM ATTENDANT.PLATE FILLER Work Phone: [facility] Encounters Encounter Date Encounter Type Care Provider Facility Start: 07-30-2024 [facility] Facility:[facility] Start: 07-26-2024 Non-patient / Non-visit Dr. Trey dixon DO -[facility] Work Phone: Start: 07-26-2024 ambulatory [facility] Facility:[facility] Start: 07-26-2024 End: 08-05-2024 Evaluation and management of inpatient Dr. Trey Joe DO -[facility] 3 Work Phone: Start: 07-24-2024 End: 07-28-2024 Telephone encounter Velvet Palacio MD Work Phone: [facility] [place] Comment on above: Request for informat ion (from [facility]) Start: 07-17-2024 End: 07-17-2024 Refill Dali Older SCRUBBER SYSTEM ATTENDANT.PLATE FILLER Work Phone: [facility] Comment on above: Refill Request Start: 07-09-2024 End: 07-09-2024 ambulatory DALI [facility] Facility:[facility] Start: 07-09-2024 End: 07-09-2024 Subsequent hospital visit by physician [facility] W[facility] (I-Stat) Work Phone: Cat Scan Comment on above: Memory change [R41.3 ] Start: 07-06-2024 End: 07-08-2024 Refill Velvet Palacio MD Work Phone: [facility] [place] Comment on above: Refill Request order for nebulizer supplies Start: 07-01-2024 End: 07-02-2024 Follow-up encounter Dali Rice APRN.CNP Work Phone: [facility] Start: 06-30-2024 End: 07-01-2024 Telephone encounter Dali Rice APRN.CNP Work Phone: [facility] Comment on above: Results, Lab Start: 06-29-2024 End: 06-29-2024 Office outpatient visit 25 minutes Dali Rice APRN.CNP Work Phone: [facility] Comment on above: Memory change (Prima ry Dx); Light sensitivity; Migraine without aura, not intractable, without status migrainosus; On home oxygen therapy; Uncomplicated asthma, unspecified asthma severity, unspecified whether persistent (HCC); Marijuana use; History of substance use Start: 06-29-2024 End: 06-29-2024 ambulatory VELVET PALACIO Facility:[facility] Start: 06-19-2024 End: 06-19-2024 Subsequent hospital visit by physician [facility] Work Phone: Radiology Comment on above: Shortness of breath [R06.02] Start: 06-19-2024 End: 06-19-2024 Patient encounter procedure Dali Rice APRN.CNP Work Phone: [facility] Comment on above: Shortness of breath (Primary Dx); Moderate persistent asthma without complication (HCC); Chronic obstructive pulmonary disease, unspecified COPD type (HCC); Memory change; Dependence on supplemental oxygen Start: 06-19-2024 End: 06-19-2024 ambulatory DALI RICE Facility:[facility] Start: 06-17-2024 End: 06-17-2024 Refill Vickie Barth PA-C Work Phone: Orthopaedics Comment on above: Refill Request Start: 06-16-2024 End: 06-19-2024 ambulatory Velvet Palacio MD Work Phone: [facility] Start: 06-14-2024 End: 06-17-2024 Refill Velvet Palacio MD Work Phone: [facility] Comment on above: Refill Request Start: 06-01-2024 End: 06-01-2024 Refill Velvet Palacio MD Work Phone: [facility] Comment on above: Refill Request Start: 05-23-2024 End: 05-23-2024 ambulatory Sreekanth Spears RN NURSE BENEFITS TECHNICIAN Comment on above: Medication Problem Opened In Error Start: 05-18-2024 End: 05-18-2024 Telephone encounter Velvet Palacio MD Work Phone: [facility] [place] Comment on above: Refill Request Start: 05-12-2024 End: 05-12-2024 Telephone encounter Velvet Palacio MD Work Phone: [facility] Comment on above: [facility] - request from patient. Start: 05-09-2024 End: 05-12-2024 Telephone encounter Velvet Palacio MD Work Phone: [facility] Comment on above: Handicap Placard Req uest; DME Requests Start: 05-08-2024 End: 05-08-2024 ambulatory VELVET PALACIO Facility:[facility] Start: 05-08-2024 End: 05-08-2024 Transitional care manage srvc 7 day discharge Velvet Palacio MD Work Phone: [facility] [place] Comment on above: Hospital discharge f ollow-up (Primary Dx); COPD with exacerbation (HCC); Essential hypertension; Hyperlipidemia, unspecified hyperlipidemia type; Gastroesophageal reflux disease without esophagitis; Stage 3b chronic kidney disease (HCC); Moderate episode of recurrent major depressive disorder (HCC) Start: 05-05-2024 End: 05-05-2024 Telephone encounter Velvet Palacio MD Work Phone: [facility] [place] Comment on above: Patient Request Start: 05-04-2024 End: 05-04-2024 Patient Outreach Velvet Palacio MD Work Phone: [facility] [place] Comment on above: Transition Of Care Refill Request Start: 05-03-2024 Non-patient / Non-visit Dr. Lj Aldana MD -[facility] Work Phone: Start: 05-02-2024 Non-patient / Non-visit Dr. Lj Aldana MD -[facility] Work Phone: Start: 05-01-2024 Non-patient / Non-visit Dr. Trey dixon -[facility] Work Phone: Start: 05-01-2024 [facility] Trey Joe Facility:[facility] Start: 05-01-2024 End: 05-03-2024 Evaluation and management of inpatient Dr. Himanshu Aldana MD -Progressive Care Unit Work Phone: Start: 04-24-2024 End: 04-24-2024 Refill Velvet Palacio MD Work Phone: [facility] [place] Comment on above: Refill Request Start: 04-16-2024 End: 04-16-2024 Refill Velvet Palacio MD Work Phone: [facility] [place] Comment on above: Refill Request Start: 04-15-2024 End: 04-16-2024 Telephone encounter Dali Rice APRNFreddyPLATE FILLER Work Phone: [facility] [place] Comment on above: Patient Question Start: 04-13-2024 End: 04-13-2024 Telephone encounter Velvet Palacio MD Work Phone: [facility] [place] Comment on above: Patient Request Start: 04-02-2024 End: 04-02-2024 Patient encounter procedure Dali Rice SCRUBBER SYSTEM ATTENDANT.PLATE FILLER Work Phone: [facility] [place] Comment on above: Headaches (Primary D x); Pain syndrome, chronic; Fibromyalgia; Essential hypertension; Mixed hyperlipidemia Start: 04-02-2024 End: 04-02-2024 ambulatory DALI RICE Facility:[facility] Start: 03-31-2024 End: 05-08-2024 Refill Dali Rice SCRUBBER SYSTEM ATTENDANT.PLATE FILLER Work Phone: [facility] [place] Comment on above: Refill Request Start: 03-30-2024 End: 03-30-2024 Refill Velvet Palacio MD Work Phone: [address] [place] [address] Comment on above: Refill Request Start: 03-30-2024 End: 03-30-[address] Lux Hurley MD -Radiology [facility] Work Phone: Start: 03-30-2024 End: 03-30-2024 ambulatory Lux Hurley Facility:[facility] Start: 03-16-2024 End: 03-16-2024 Telephone encounter Vitor Calhoun MD Work Phone: [facility] Comment on above: No Show (#2) Start: 03-07-2024 End: 03-12-2024 Refill Velvet Palacio MD Work Phone: [facility] [place] Comment on above: Refill Request Start: 02-28-2024 End: 02-28-2024 Telephone encounter Vitor Calhoun MD Work Phone: [facility] Comment on above: No Show Start: 02-25-2024 End: 02-28-2024 ambulatory Velvet Palacio MD Work Phone: Internal [facility] [place] [id number] Start: 02-10-2024 End: 02-10-2024 ambulatory SEBAS MOLINA Facility:[facility] Start: 02-10-2024 End: 02-10-2024 Patient encounter procedure Sebas Molina MD Work Phone: Orthopaedics Comment on above: Trigger middle finge r of right hand (Primary Dx) Start: 02-04-2024 End: 02-05-2024 Refill Kimberly Nino SCRUBBER SYSTEM ATTENDANT.PLATE FILLER Work Phone: [facility] [place] Comment on above: Refill Request Start: 02-03-2024 End: 02-03-2024 Refill Dali Rice SCRUBBER SYSTEM ATTENDANT.PLATE FILLER Work Phone: [facility] [place] Comment on above: Refill Request Start: 02-02-2024 End: 02-03-2024 Refill Thelma Lawson APRN.PLATE FILLER Work Phone: Gastroenterology Comment on above: Refill Request Start: 01-17-2024 End: 01-20-2024 Refill Velvet Palacio MD Work Phone: [facility] [place] Comment on above: Refill Request Start: 01-16-2024 End: 01-16-2024 Patient encounter procedure Nuris Barba APRN.PLATE FILLER Work Phone: [facility] Comment on above: Thoracic degenerativ e disc disease; Pain syndrome, chronic; Compression deformity of vertebra Start: 01-16-2024 End: 01-16-2024 Telephone encounter Nuris Barba APRN.PLATE FILLER Work Phone: [facility] Comment on above: Injections Start: 01-16-2024 End: 01-16-2024 ambulatory NURIS LIMA Facility:[facility] Start: 01-15-2024 End: 01-16-2024 Refill Radha Willams MD Work Phone: Pulmonary Medicine Comment on above: Refill Request Start: 01-14-2024 End: 01-15-2024 Refill Velvet Palacio MD Work Phone: [facility] Comment on above: Refill Request Start: 01-02-2024 End: 01-03-2024 Refill Dali Rice APRN.PLATE FILLER Work Phone: [facility] [place] Comment on above: Refill Request Results Start: 12-27-2023 End: 12-31-2023 Telephone encounter Velvet Palacio MD Work Phone: [facility] [place] Comment on above: Results; Patient Que stion; Medication Question Start: 12-26-2023 End: 12-26-2023 ambulatory [facility] Facility:[facility] Start: 12-24-2023 End: 12-25-2023 Refill Velvet Palacio MD Work Phone: [facility] [place] Comment on above: Refill Request Start: 12-12-2023 End: 12-12-2023 Telephone encounter Mari Martinez SCRUBBER SYSTEM ATTENDANT.PLATE FILLER Work Phone: Rheumatology Comment on above: Results; Care Coordi nator - Other; Appointment Results Start: 12-11-2023 End: 12-11-2023 [facility] Facility:[facility] Start: 12-11-2023 End: 12-11-2023 Patient encounter procedure [facility] SCRUBBER SYSTEM ATTENDANT.PLATE FILLER Work Phone: [facility] [place] Comment on above: Essential hypertensi on (Primary Dx); Thoracic degenerative disc disease; Pain syndrome, chronic; Encounter for immunization Start: 11-16-2023 End: 11-18-2023 Telephone encounter Velvet Palacio MD Work Phone: [facility] Comment on above: Patient Question Start: 11-12-2023 End: 11-12-2023 Refill Kimberly Nino SCRUBBER SYSTEM ATTENDANT.PLATE FILLER Work Phone: [facility] [place] Comment on above: Refill Request Osteoporosis, post m enopausal (Primary Dx); Fibromyalgia Start: 11-06-2023 End: 11-06-2023 [facility] Facility:[facility] Start: 11-06-2023 End: 11-06-2023 Patient encounter procedure [facility] SCRUBBER SYSTEM ATTENDANT.PLATE FILLER Work Phone: Internal Medicine [place] Comment on above: Essential hypertensi on (Primary Dx); Mixed hyperlipidemia; Thoracic degenerative disc disease; Pain syndrome, chronic; Compression deformity of vertebra; Abnormal x-ray Start: 10-29-2023 End: 10-31-2023 Refill Velvet Palacio MD Work Phone: Internal Medicine [place] Comment on above: Refill Request Start: 10-28-2023 End: 10-28-2023 Telephone encounter Velvet Palacio MD Work Phone: Internal Medicine [place] Comment on above: Medication Request Start: 10-26-2023 End: 10-30-2023 Telephone encounter Velvet Palacio MD Work Phone: Internal Medicine [place] Comment on above: Results Refill Request Start: 10-23-2023 End: 10-23-2023 Telephone encounter Velvet Palacio MD Work Phone: Internal Medicine [place] Comment on above: Medication Request Start: 10-22-2023 End: 10-22-2023 Telephone encounter Sebas Molina MD Work Phone: Orthopaedics Comment on above: Surgery Cancelled Start: 10-22-2023 End: 10-22-2023 [facility] Facility:[facility] Start: 10-22-2023 End: 10-22-2023 Subsequent hospital visit by physician [facility]r [facility] Work Phone: Radiology Comment on above: Acute midline thorac ic back pain [M54.6] Start: 10-22-2023 End: 10-22-2023 Office outpatient visit 25 minutes Ines Lopez PA-C Work Phone: Family Medicine [place] Comment on above: Acute midline thorac ic back pain (Primary Dx); Essential hypertension; Eustachian tube dysfunction, bilateral; Panic disorder without agoraphobia Start: 10-22-2023 End: 10-22-2023 ambulatory [facility] Facility:[facility] Start: 10-18-2023 End: 10-21-2023 Refill Kimberly iNno APRN.PLATE FILLER Work Phone: Internal Medicine [place] Comment on above: Refill Request Start: 10-17-2023 Refill Kimberly reyna SCRUBBER SYSTEM ATTENDANT.PLATE FILLER Work Phone: Internal Medicine [place] Comment on above: Refill Request Start: 10-07-2023 Telephone encounter Hannah Burr APRN.PLATE FILLER Work Phone: Pre Anesthesia Comment on above: PACC appointment Start: 10-05-2023 Refill Barb Quiñones SCRUBBER SYSTEM ATTENDANT.PLATE FILLER Work Phone: Internal Medicine [place] Comment on above: Refill Request Start: 09-27-2023 End: 09-27-2023 Emergency department patient visit DALI RICE Facility:[facility] Start: 09-27-2023 End: 09-27-2023 ambulatory VELVET PALACIO Facility:[facility] Start: 09-27-2023 End: 09-27-2023 Office outpatient visit 15 minutes Kush Guthrie SCRUBBER SYSTEM ATTENDANT.PLATE FILLER Work Phone: [place] [facility] Comment on above: Nasal septal abscess (Primary Dx) Start: 09-24-2023 Refill Barb Quiñones SCRUBBER SYSTEM ATTENDANT.PLATE FILLER Work Phone: Internal Medicine [place] Comment on above: Refill Request Start: 09-17-2023 Telephone encounter eSbas davis MD Work Phone: Orthopaedics Comment on above: Schedule Surgery; OT EVAL Start: 09-02-2023 End: 09-02-2023 Patient encounter procedure Sebas Molina MD Work Phone: Orthopaedics Comment on above: Primary osteoarthrit is of first carpometacarpal joint of right hand (Primary Dx) Start: 09-02-2023 End: 09-02-2023 ambulatory SEBAS MOLINA Facility:[facility] Start: 09-02-2023 End: 09-02-2023 Subsequent hospital visit by physician [facility] [place] Work Phone: Radiology Comment on above: Pain [R52] Start: 08-29-2023 Refill Fernando Quijanos SCRUBBER SYSTEM ATTENDANT.SECURITY ESCORT Work Phone: Internal Medicine [place] Comment on above: Refill Request Start: 08-28-2023 ambulatory Velvet Rivera Work Phone: Internal Medicine [facility] Start: 08-16-2023 Patient Msg Radha Willams MD Work Phone: Pulmonary Medicine Comment on above: Prednisone Refill Refill Request Start: 08-15-2023 Refill Radha Willams MD Work Phone: Pulmonary Medicine Comment on above: Refill Request Start: 08-13-2023 Telephone encounter Velvet spear MD Work Phone: Internal Medicine [place] Comment on above: Medication Problem Start: 08-04-2023 Refill Radha Willams MD Work Phone: Pulmonary Medicine Comment on above: Refill Request Start: 08-03-2023 Refill Dali Rice SCRUBBER SYSTEM ATTENDANT .PLATE FILLER Work Phone: Internal Medicine [place] Comment on above: Refill Request Start: 07-22-2023 Refill Radha Willams MD Work Phone: Pulmonary Medicine Comment on above: Refill Request Start: 07-20-2023 Refill Velvet Rivera Work Phone: Internal Medicine [place] Comment on above: Refill Request Start: 07-16-2023 Orders Only Fernando Fernandez APRN.SECURITY ESCORT Work Phone: Internal Medicine [place] Comment on above: Stage 3 chronic kidn ey disease, unspecified whether stage 3a or 3b CKD (HCC) (Primary Dx) Start: 07-11-2023 Refill Velvet Rivera Work Phone: [address] [place] [address] Comment on above: Refill Request Start: 07-10-2023 Refill Ines sandhu PA-C Work Phone: Internal Medicine [place] Comment on above: Refill Request Start: 07-09-2023 Refill Barb Quiñones SCRUBBER SYSTEM ATTENDANT.PLATE FILLER Work Phone: Internal Medicine [place] Comment on above: Refill Request Start: 07-08-2023 ambulatory Ivett Hdez RN [facility] [place] Start: 07-08-2023 [facility] [place] Comment on above: ACM ELIUD RN ( Medication Adherence and Suspect Condition Review at request of payer) Start: 07-05-2023 End: 07-05-2023 Patient encounter procedure Radha Willams MD Work Phone: Pulmonary Medicine Comment on above: Asthma with chronic obstructive pulmonary disease (COPD) (HCC) (Primary Dx); Community acquired pneumonia of right lower lobe of lung; Chronic hypoxemic respiratory failure (HCC); Former cigarette smoker Start: 06-11-2023 Telephone encounter Fernando herrera APRN.SECURITY ESCORT Work Phone: Internal Medicine [place] Comment on above: Patient Question Start: 06-10-2023 End: 06-10-2023 Office outpatient visit 25 minutes Fernando Fernandez APRN.SECURITY ESCORT Work Phone: Internal Medicine [place] Comment on above: Community acquired p neumonia, unspecified laterality (Primary Dx); Acute on chronic respiratory failure with hypoxia (HCC); Stage 3 chronic kidney disease, unspecified whether stage 3a or 3b CKD (HCC); Centrilobular emphysema (HCC); Acute on chronic diastolic congestive heart failure (HCC); Essential hypertension Start: 06-06-2023 Non-patient / Non-visit CARPET BINDER-C J OY OLDER Work Phone: [facility] Work Phone: Start: 06-05-2023 Non-patient / Non-visit CARPET BINDER-C J OY OLDER Work Phone: [facility] Start: 06-05-2023 Non-patient / Non-visit CARPET BINDER-C J OY OLDER Work Phone: [facility] Work Phone: Start: 06-04-2023 Non-patient / Non-visit CARPET BINDER-C J OY OLDER Work Phone: [facility] Work Phone: Start: 06-04-2023 End: 06-06-2023 Evaluation and management of inpatient CARPET BINDER-C DALI OLDER Work Phone: [facility] Work Phone: Start: 05-23-2023 Refill Shelby Styles PA-C Work Phone: Internal Medicine [place] Comment on above: Refill Request Start: 05-20-2023 ambulatory NONE PHYSICIAN Facility :R Start: 05-20-2023 Non-patient / Non-visit CARPET BINDER-C J OY OLDER Work Phone: [facility] Start: 05-20-2023 Non-patient / Non-visit CARPET BINDER-C J OY OLDER Work Phone: [facility] Work Phone: Start: 05-19-2023 Non-patient / Non-visit CARPET BINDER-C J OY OLDER Work Phone: [facility] Work Phone: Start: 05-18-2023 Non-patient / Non-visit CARPET BINDER-C J OY OLDER Work Phone: [facility] Work Phone: Start: 05-17-2023 Refill Velvet Rivera Work Phone: Internal Medicine [place] Comment on above: Refill Request Start: 05-17-2023 Non-patient / Non-visit CARPET BINDER-C J OY OLDER Work Phone: [facility] Work Phone: Start: 05-16-2023 Non-patient / Non-visit CARPET BINDER-C J OY OLDER Work Phone: [facility] Work Phone: Start: 05-15-2023 Non-patient / Non-visit CARPET BINDER-C J OY OLDER Work Phone: [facility] Work Phone: Start: 05-14-2023 Non-patient / Non-visit CARPET BINDER-C J OY OLDER Work Phone: [facility] Work Phone: Start: 05-13-2023 Non-patient / Non-visit CARPET BINDER-C J OY OLDER Work Phone: [facility] Work Phone: Start: 05-12-2023 Non-patient / Non-visit CARPET BINDER-C J OY OLDER Work Phone: [facility] Work Phone: Start: 05-11-2023 Non-patient / Non-visit CARPET BINDER-C J OY OLDER Work Phone: [facility] Work Phone: Start: 05-11-2023 End: 05-20-2023 [facility] [place] [facility] Work [facility]: Start: 05-10-2023 ambulatory Nasrin Jenkins MA [facility] Start: 05-10-2023 Patient encounter procedure Nasrin Jenkins MA [facility] [place] Comment on above: Population Health Na vigation Outreach ([facility] Annual Wellness Visit ) Start: 05-10-2023 Telephone encounter Velvet spear MD Work Phone: Internal Medicine [place] Comment on above: Patient does not wan t Rx's sent to [facility] Appointment (Appoint ment Cancelled due to Scheduling Error ) Start: 05-02-2023 Refill Shelby Styles PA-C Work Phone: Internal Medicine [place] Comment on above: Refill Request Start: 05-02-2023 Telephone encounter Mari reinoso APRN.PLATE FILLER Work Phone: Rheumatology Comment on above: Appointment Start: 05-02-2023 End: 05-02-2023 Patient encounter procedure Dali Rice APRN.PLATE FILLER Work Phone: Internal Medicine [place] Comment on above: Moderate episode of recurrent major depressive disorder (HCC) (Primary Dx); Anxiety; Essential hypertension Start: 04-29-2023 End: 04-29-2023 Subsequent hospital visit by physician [facility] Work Phone: Radiology Comment on above: Pain in joint, multi ple sites [M25.50] Start: 04-15-2023 ambulatory Genia hess RN Work Phone: [employer] Comment on above: community monitoring outreach (CDM telephonic) Start: 04-15-2023 Telephone encounter Velvet spear MD Work Phone: Internal Medicine [place] Comment on above: Insurance Authorizat ion Refill Request Start: 04-13-2023 Refill Dali Rice APRN .PLATE FILLER Work Phone: Internal Medicine [place] Comment on above: Refill Request Start: 02-06-2023 Refill Velvet Rivera Work Phone: Internal Medicine [place] Comment on above: Refill Request Start: 01-22-2023 ambulatory Genia hess RN Work Phone: [employer] Comment on above: community monitoring outreach ([facility] telephonic) Start: 01-22-2023 Telephone encounter Dali Rice SCRUBBER SYSTEM ATTENDANT.[place] Work Phone: Family Medicine [place] Comment on above: Orders Start: 01-20-2023 Refill Barb Mcintyrer SCRUBBER SYSTEM ATTENDANT.PLATE FILLER Work Phone: Internal Medicine [place] Comment on above: Refill Request; Refi ll Request Start: 12-27-2022 Refill Dali Rice SCRUBBER SYSTEM ATTENDANT .PLATE FILLER Work Phone: Internal Medicine [place] Comment on above: Refill Request Start: 12-26-2022 Refill Dali Rice SCRUBBER SYSTEM ATTENDANT .PLATE FILLER Work Phone: Internal Medicine [place] Comment on above: Refill Request; Refi ll Request Start: 12-11-2022 ambulatory Genia hess RN Work Phone: [employer] Comment on above: community monitoring outreach ([facility] telephonic) Start: 12-10-2022 ambulatory Genia hess RN Work Phone: [employer] Comment on above: community monitoring outreach ([facility] telephonic) Start: 12-03-2022 Refill Dali Rice SCRUBBER SYSTEM ATTENDANT .PLATE FILLER Work Phone: Internal Medicine [place] Comment on above: Refill Request Start: 11-19-2022 Refill Thelma Lawson APR N.PLATE FILLER Work Phone: Gastroenterology Comment on above: Refill Request Medical emergency an d was in the hospital they put me on vicodin and stomach Nestor pills and they already billed me for urine and blood test.. get the results please because I need my medical medication...[place] can't you just let me come and show you the re. Medication Request Start: 11-14-2022 End: 11-14-2022 Emergency department patient visit [facility] Work Phone: Start: 11-12-2022 ambulatory Genia hess RN Work Phone: [employer] Comment on above: community monitoring outreach ([facility] telephonic) Start: 11-11-2022 Refill Dali Older SCRUBBER SYSTEM ATTENDANT .PLATE FILLER Work Phone: Internal Medicine [place] Comment on above: Refill Request Medical Start: 11-03-2022 Refill Thelma Lawson APR N.PLATE FILLER Work Phone: Gastroenterology Comment on above: Refill Request Start: 11-01-2022 Refill Dali Older SCRUBBER SYSTEM ATTENDANT .PLATE FILLER Work Phone: Internal Medicine [place] Comment on above: Refill Request Start: 11-01-2022 Telephone encounter Dali Rice SCRUBBER SYSTEM ATTENDANT.PLATE FILLER Work Phone: Internal Medicine [place] Comment on above: Medication Request Start: 10-30-2022 Telephone encounter Velvet spear MD Work Phone: Family Medicine [place] Comment on above: Results Start: 10-24-2022 Refill Thelma Lawson APR N.PLATE FILLER Work Phone: Gastroenterology Comment on above: Refill Request Start: 10-23-2022 End: 10-23-2022 Subsequent hospital visit by physician [facility] Work Phone: Radiology Comment on above: Encounter for screen ing for osteoporosis [Z13.820] Start: 10-15-2022 ambulatory Crystal Jared hess RN Work Phone: [employer] Comment on above: community monitoring outreach (CDM telephonic) Start: 10-09-2022 Telephone encounter Velvet spear MD Work Phone: Family [facility] Comment on above: Patient Update Start: 10-09-2022 End: 10-10-2022 Emergency department patient visit [facility] Work Phone: Start: 10-08-2022 Chart abstracting Ness velazquez [facility] Work Phone: Psychology Start: 10-04-2022 Telephone encounter Dali Rice SCRUBBER SYSTEM ATTENDANT.PLATE FILLER Work Phone: Family [facility] [place] Comment on above: Results (Requesting xray results) Start: 10-03-2022 Refill Dali Rice APRN .PLATE FILLER Work Phone: Internal Medicine [place] Comment on above: Refill Request Start: 10-02-2022 Refill Dali Rice APRN .PLATE FILLER Work Phone: Internal Medicine [place] Comment on above: Refill Request Start: 10-01-2022 Telephone encounter Ness gunn [facility] Work Phone: Psychology Comment on above: bh consult Start: 10-01-2022 End: 10-01-2022 Subsequent hospital visit by physician [facility] [place] Work Phone: Radiology Comment on above: Chronic back pain, u nspecified back location, unspecified back pain laterality [M54.9, G89.29] Start: 10-01-2022 End: 10-01-2022 Patient encounter procedure Dali Rice APRN.PLATE FILLER Work Phone: Internal Medicine [place] Comment on above: Essential hypertensi on (Primary Dx); Hyperlipidemia, unspecified hyperlipidemia type; Fibromyalgia; Medication management; Epigastric pain; Diarrhea, unspecified type; Encounter for screening for osteoporosis; Asymptomatic postmenopausal status; Chronic back pain, unspecified back location, unspecified back pain laterality; Kyphosis, unspecified kyphosis type, unspecified spinal region; Panic disorder without agoraphobia; Moderate episode of recurrent major depressive disorder (HCC); Dizziness; Light sensitivity Start: 09-28-2022 ambulatory Genia hess RN Work Phone: [employer] Comment on above: community monitoring outreach (CDM telephonic) Start: 09-28-2022 Refill Barb Quiñones SCRUBBER SYSTEM ATTENDANT.PLATE FILLER Work Phone: Internal Medicine [place] Comment on above: Refill Request Start: 09-27-2022 Chart abstracting Ness velazquez [facility] Work Phone: Psychology Start: 09-20-2022 Chart abstracting Ness velazquez [facility] Work Phone: Psychology Comment on above: Refill Request Start: 09-18-2022 ambulatory Velvet Rivera Work Phone: Internal Medicine [facility] Start: 08-30-2022 ambulatory Genia Saimalyric hess RN Work Phone: [employer] Comment on above: community monitoring outreach (CDM telephonic) Start: 08-29-2022 Refill Velvet Rivera Work Phone: Internal Medicine [place] Comment on above: Refill Request Start: 07-31-2022 [facility] [place] Comment on above: Population Health Na vigation Outreach ([facility] care gap ) Start: 06-28-2022 Telephone encounter Velvet spear MD Work Phone: Internal Medicine [place] Comment on above: Medication clarifica tion Refill Request Start: 06-27-2022 ambulatory Hilda Chu RN Work Phone: [employer] Comment on above: Community Monitoring Outreach (CDM Telephonic Outreach - Routine ) Start: 06-26-2022 ambulatory Hilda Chu RN Work Phone: [employer] Comment on above: Community Monitoring Outreach (CDM Telephonic Outreach - Routine ) Start: 06-26-2022 Refill Dali Older SCRUBBER SYSTEM ATTENDANT .PLATE FILLER Work Phone: Internal Medicine [place] Comment on above: Refill Request Start: 06-19-2022 ambulatory Velvet Rivera Work Phone: Internal [facility] Start: 06-13-2022 ambulatory Hilda Chu RN Work Phone: [employer] Comment on above: Community Monitoring Outreach (CDM telephonic outreach ) Start: 06-12-2022 ambulatory Hilda Chu RN Work Phone: [employer] Comment on above: Community Monitoring Outreach (CDM telephonic outreach ) Start: 06-01-2022 Refill Dali Older SCRUBBER SYSTEM ATTENDANT .PLATE FILLER Work Phone: Internal Medicine [place] Comment on above: Refill Request Start: 05-30-2022 ambulatory Hilda Chu RN Work Phone: [employer] Comment on above: Community Monitoring Outreach (CDM telephonic outreach ) Start: 05-29-2022 ambulatory Hilda Chu RN Work Phone: [employer] Comment on above: Community Monitoring Outreach (CDM telephonic outreach ) Start: 05-27-2022 ambulatory Danni stahl LPN NURSE BENEFITS TECHNICIAN Comment on above: Medication Question Start: 05-25-2022 Refill Velvet Hale D Work Phone: Internal Medicine [place] Comment on above: Refill Request Start: 05-10-2022 Refill Velvet Rivera Work Phone: Family Medicine [place] Comment on above: Refill Request Start: 05-02-2022 ambulatory Hilda Chu RN Work Phone: [employer] Comment on above: Community Monitoring Outreach (CDM telephonic outreach ) Start: 04-27-2022 Refill Thelma CornejoPLATE FILLER Work Phone: Gastroenterology Comment on above: Refill Request Start: 04-24-2022 Refill Velvet Rivera Work Phone: [facility] [place] Comment on above: Refill Request Start: 04-19-2022 ambulatory Hilda Chu RN Work Phone: [employer] Comment on above: Community Monitoring Outreach (CDM telephonic outreach ) Start: 04-06-2022 ambulatory Hilda Chu RN Work Phone: [employer] Comment on above: Community Monitoring Outreach (CDM telephonic outreach ) Start: 04-05-2022 ambulatory Hilda Chu RN Work Phone: [employer] Comment on above: Community Monitoring Outreach (CDM telephonic outreach ) Start: 04-02-2022 Telephone encounter Velvet spear MD Work Phone: Internal Medicine [place] Comment on above: Results Start: 03-28-2022 Refill Velvet Rivera Work Phone: Internal Medicine [place] Comment on above: Refill Request (SEE RX NOTES) Start: 03-19-2022 Telephone encounter Velvet spear MD Work Phone: Internal Medicine [place] Comment on above: results Start: 03-16-2022 End: 03-16-2022 Subsequent hospital visit by physician [facility] ([facility]) Work Phone: Cat Scan Comment on above: Elevated lipase [R74 .8] Start: 03-13-2022 ambulatory [facility] Provider [employer] Comment on above: Please complete your Home Monitoring Questionnaire Start: 03-13-2022 E-mail encounter fro m caregiver [facility] Provider [facility] [place] Start: 03-12-2022 Refill Fernando Fernandez SCRUBBER SYSTEM ATTENDANT.SECURITY ESCORT Work Phone: Internal Medicine [place] Comment on above: Refill Request Start: 03-06-2022 Refill Velvet Rivera Work Phone: Internal Medicine [place] Comment on above: Refill Request Start: 02-21-2022 Refill Dali HayesPLATE FILLER Work Phone: Family Medicine [place] Comment on above: Refill Request Start: 02-17-2022 Refill Velvet Rivera Work Phone: Internal Medicine [place] Comment on above: Refill Request Start: 02-13-2022 ambulatory [facility] Provider [employer] Comment on above: Please complete your Home Monitoring Questionairre Start: 02-13-2022 E-mail encounter fro m caregiver [facility] Provider REGGIEP NATHANIEL MEJIA Start: 02-02-2022 Telephone encounter Velvet spear MD Work Phone: Internal Medicine [place] Comment on above: Orders Start: 02-01-2022 Telephone encounter Dali Rice APRN.PLATE FILLER Work Phone: Internal Medicine [place] Comment on above: Results Start: 01-31-2022 ambulatory [facility] Provider [employer] Comment on above: Please complete your Home Monitoring Questionnaire Start: 01-31-2022 E-mail encounter fro m caregiver [facility] Provider [facility] [place] Start: 01-31-2022 End: 01-31-2022 Patient encounter procedure Dali Rice APRN.PLATE FILLER Work Phone: Internal Medicine [place] Comment on above: Diarrhea, unspecifie d type (Primary Dx); Right upper quadrant abdominal tenderness without rebound tenderness; Heartburn; Nausea Start: 01-23-2022 Telephone encounter Velvet spear MD Work Phone: Internal Medicine [place] Comment on above: Patient Request; Ord ers Start: 01-03-2022 End: 01-03-2022 Patient encounter procedure Dali Krystal GOEL.PLATE FILLER Work Phone: Internal Medicine [place] Comment on above: Essential hypertensi on (Primary Dx); Migraine without aura and without status migrainosus, not intractable; Chronic pain of multiple joints; Arthritis; Fibromyalgia; Colon cancer screening Start: 12-26-2021 Refill Barby Diallo SCRUBBER SYSTEM ATTENDANT.PLATE FILLER Work Phone: Internal Medicine [place] Comment on above: Refill Request Start: 12-20-2021 Refill Barby Diallo SCRUBBER SYSTEM ATTENDANT.PLATE FILLER Work Phone: Internal Medicine [place] Comment on above: Refill Request Start: 12-19-2021 ambulatory Eulalia Jeong RN Work Phone: [employer] Comment on above: Community Monitoring Outreach ([employer] CDM escalation) Start: 12-15-2021 Refill Dali Rice SCRUBBER SYSTEM ATTENDANT .PLATE FILLER Work Phone: Internal Medicine [place] Comment on above: Refill Request Start: 12-06-2021 Refill Thelma Lawson APR N.PLATE FILLER Work Phone: Gastroenterology Comment on above: Refill Request Start: 12-05-2021 Refill Velvet Rivera Work Phone: Internal Medicine [place] Comment on above: Refill Request Start: 12-04-2021 ambulatory Kelsea justin SCRUBBER SYSTEM ATTENDANT.PLATE FILLER Work Phone: Telemedicine Comment on above: Treatment not availa ble (Primary Dx) Start: 11-09-2021 ambulatory Terri Johnston RN Work Phone: [employer] Comment on above: Opened In Error (.) Community Monitoring Outreach ([employer] CDM Escalation) Refill Request Start: 10-30-2021 Refill Thelma Lawson APR N.PLATE FILLER Work Phone: Gastroenterology Comment on above: Refill Request Start: 10-18-2021 ambulatory Velvet Rivera Work Phone: Internal Medicine [place] Start: 10-17-2021 Refill Dali Rice SCRUBBER SYSTEM ATTENDANT .PLATE FILLER Work Phone: Internal Medicine [place] Comment on above: Refill Request Start: 10-13-2021 Nurse Triage Liliana Short RN NURSE O N CALL Comment on above: Refill Request Start: 10-12-2021 Refill Dali Rice SCRUBBER SYSTEM ATTENDANT .PLATE FILLER Work Phone: [facility] Comment on above: Refill Request Start: 10-05-2021 ambulatory Juan Hillman RN [facility] Comment on above: Community Monitoring Outreach (CHF/ COPD/ CKD CDM Outreach) Start: 10-05-2021 Telephone encounter Velvet spear MD Work Phone: [facility] Comment on above: Medication Request; Patient Update Start: 09-11-2021 Refill Scot Kruse APRN.PLATE FILLER Work Phone: [facility] Comment on above: Refill Request Start: 09-07-2021 Refill Velvet Rivera Work Phone: [facility] [place] Comment on above: Refill Request Start: 08-30-2021 ambulatory Juan Hillman RN [facility] Comment on above: Community Monitoring Outreach (CHF/ COPD/ CKD CDM Outreach) Start: 08-22-2021 Telephone encounter Velvet spear MD Work Phone: [facility] [place] Comment on above: Patient Update; Haylie ent Request Start: 08-11-2021 ambulatory Nasrin Jenkins MA [facility] Comment on above: Population Health Na vigation Outreach ([employer] Care Gaps ) Start: 08-11-2021 Refill Thelma Lawson APR N.PLATE FILLER Work Phone: Gastroenterology Comment on above: Refill Request Start: 07-28-2021 Telephone encounter Velvet spear MD Work Phone: [facility] Comment on above: Patient Request Start: 07-26-2021 ambulatory Dali Older SCRUBBER SYSTEM ATTENDANT .PLATE FILLER Work Phone: [facility] Comment on above: Question regarding S ED RATE Start: 07-26-2021 Refill Dali Older SCRUBBER SYSTEM ATTENDANT .PLATE FILLER Work Phone: [facility] [place] Comment on above: Refill Request Start: 07-26-2021 End: 07-26-2021 Patient encounter procedure Dali Older SCRUBBER SYSTEM ATTENDANT.PLATE FILLER Work Phone: [facility] Comment on above: Essential hypertensi on (Primary Dx); Fibromyalgia; Chronic pain of multiple joints; Poor short term memory Start: 07-13-2021 Refill Dali Older SCRUBBER SYSTEM ATTENDANT .PLATE FILLER Work Phone: [facility] Comment on above: Refill Request Start: 07-10-2021 Refill Dali Older SCRUBBER SYSTEM ATTENDANT .PLATE FILLER Work Phone: [facility] [place] Comment on above: Refill Request Start: 07-06-2021 Refill Tanya Gerber [facility] [place] Comment on above: Refill Request Start: 07-05-2021 Refill Dali Older SCRUBBER SYSTEM ATTENDANT .PLATE FILLER Work Phone: [facility] Comment on above: Refill Request Start: 07-05-2021 Refill Velvet Rivera Work Phone: [facility] Comment on above: Refill Request; Refi ll Request Start: 07-04-2021 Refill Dali Older SCRUBBER SYSTEM ATTENDANT .PLATE FILLER Work Phone: [facility] Comment on above: Refill Request Start: 06-26-2021 End: 06-26-2021 Patient encounter procedure Dali Older SCRUBBER SYSTEM ATTENDANT.PLATE FILLER Work Phone: [facility] Comment on above: Essential hypertensi on (Primary Dx); Poor short term memory; Chronic pain of multiple joints Start: 06-22-2021 Refill Velvet Rivera Work Phone: [facility] Comment on above: Refill Request Start: 06-20-2021 Refill Thelma Lawson APR N.PLATE FILLER Work Phone: Gastroenterology Comment on above: Refill Request Start: 05-31-2021 Refill Dali Rice SCRUBBER SYSTEM ATTENDANT .PLATE FILLER Work Phone: [facility] Comment on above: Refill Request Start: 05-28-2021 Refill Dali Rice SCRUBBER SYSTEM ATTENDANT .PLATE FILLER Work Phone: [facility] [place] Comment on above: Refill Request Start: 03-23-2021 End: 03-23-2021 Subsequent hospital visit by physician Xr [facility] [place] Work Phone: Radiology Comment on above: Shortness of breath [R06.02] Start: 01-11-2021 Telephone encounter Thelma Lawson SCRUBBER SYSTEM ATTENDANT.PLATE FILLER Work Phone: Gastroenterology Comment on above: Results Start: 12-02-2017 Ambulatory [facility] Facility :[facility] Start: 09-27-2017 Patient encounter status Dali Rice SCRUBBER SYSTEM ATTENDANT.PLATE FILLER Work Phone: [facility] Start: 08-22-2017 Ambulatory [facility] Start: 04-10-2017 Ambulatory [facility] Start: 04-02-2017 End: 04-02-2017 Ambulatory [facility] Facility:[facility] Start: 11-20-2016 End: 11-21-2016 Ambulatory Nakita Miller Facility:[facility] Start: 11-04-2016 End: 11-04-2016 Emergency department patient visit [facility] Start: 09-11-2016 Ambulatory [facility] Start: 09-11-2016 Ambulatory [facility] Procedures Date Procedure Procedure Detail Performing Clinician Start: 07-26-2024 Plain X-ray abdomen DALI KRYSTAL CARPET BINDER-C Work Phone: Start: 07-26-2024 Urnls dip stick/tabl et reagent auto microscopy DALI KRYSTAL CARPET BINDER-C Work Phone: Start: 07-26-2024 Computed tomography of abdomen and pelvis with intravenous contrast DALI KRYSTAL CARPET BINDER-C Work Phone: Start: 07-26-2024 Estimated creatinine clearance DALI OLDER CARPET BINDER-C Work Phone: Start: 07-09-2024 Ct head/brain w/o co ntrast material Dali Rice SCRUBBER SYSTEM ATTENDANT.PLATE FILLER Work Phone: Start: 06-29-2024 Lipid 1996 panel - S wang or Plasma Dali Rice SCRUBBER SYSTEM ATTENDANT.PLATE FILLER Work Phone: Start: 05-02-2024 Gram stain microscopy J OY OLDER CARPET BINDER-C Work Phone: Start: 05-02-2024 Respiratory microbia l culture DALI OLDER CARPET BINDER-C Work Phone: Start: 05-02-2024 Estimated creatinine clearance DALI OLDER CARPET BINDER-C Work Phone: Start: 05-01-2024 Legionella pneumophi la antigen assay DALI OLDER CARPET BINDER-C Work Phone: Start: 05-01-2024 SARS-CoV-2, Influenz a & RSV (PCR) DALI OLDER [employer]PET BINDER-C Work Phone: Start: 05-01-2024 End: 05-01-2024 Streptococcus pneumoniae antigen assay DALI OLDER CARPET BINDER-C Work Phone: Start: 05-01-2024 X-ray of chest, PA a nd lateral views DALI OLDER CARPET BINDER-C Work Phone: Start: 03-30-2024 X-ray of lumbar spin e, two or three views DALI OLDER CARPET BINDER-C Work Phone: Start: 03-30-2024 Xray thoracic spine DALI OLDER CARPET BINDER-C Work Phone: Start: 02-10-2024 Injection 1 tendon sheath/ligament aponeurosis Sebas Molina MD Work Phone: Start: 10-22-2023 Radex spine thoracic 3 views Ines VEGA-C Work Phone: Start: 06-04-2023 Legionella pneumophi la antigen assay CARPET BINDER-C DALI OLDER Work Phone: Start: 06-04-2023 SARS-CoV-2, Influenz a & RSV (PCR) CARPET BINDER-C DALI Enventum Work Phone: Start: 06-04-2023 Streptococcus pneumo niae Antigen (M CARPET BINDER- DALI Enventum Work Phone: Start: 06-04-2023 Plain chest X-ray CARPET BINDER DALI RICE Work Phone: Start: 05-20-2023 Plain chest X-ray CARPET BINDER- DALI Enventum Work Phone: Start: 05-17-2023 CT [facility]: Start: 05-17-2023 Plain chest X-ray CARPET BINDER- DALI En[employer] Work Phone: Start: 05-16-2023 Investigation of transfusion reaction [facility] DALI Enventum Work Phone: Start: 05-16-2023 Lactoferrin measurement CARPET BINDER- DALI [employer]um Work Phone: Start: 05-16-2023 Measurement of occul t blood in stool specimen using immunoassay [facility] DALI Enventum Work Phone: Start: 05-16-2023 Respiratory microbia l culture CARPET BINDER- DALI En[employer]um Work Phone: Start: 05-14-2023 Plain [facility] Sitedesk Phone: Start: 05-11-2023 Bacteria identified in Blood by Culture [facility] DALI Enventum Work Phone: Start: 05-11-2023 SARS-CoV-2, Influenz a & RSV (PCR) Start: 05-11-2023 CT of thorax with contrast Start: 05-11-2023 Computed tomography of abdomen and pelvis with intravenous contrast Start: 04-29-2023 Radex hand minimum 3 views Mari Martinez SCRUBBER SYSTEM ATTENDANT.PLATE FILLER Work Phone: Start: 02-11-2023 Lipid 1996 panel - S wang or Plasma Dali Rice SCRUBBER SYSTEM ATTENDANT.PLATE FILLER Work Phone: Start: 11-14-2022 Computed tomography of abdomen and pelvis with intravenous contrast Start: 10-23-2022 Dxa bone density brendan dy 1/> sites axial skel Dali Older SCRUBBER SYSTEM ATTENDANT.PLATE FILLER Work Phone: Start: 10-09-2022 Coronavirus COVID-19 PCR Start: 10-01-2022 Radex spine lumbosac ral 2/3 views Dali Older SCRUBBER SYSTEM ATTENDANT.PLATE FILLER Work Phone: Start: 03-16-2022 Ct abdomen w/o contr ast material Dali Older SCRUBBER SYSTEM ATTENDANT.PLATE FILLER Work Phone: Start: 07-26-2021 Lipid 1996 panel - S wang or Plasma Dali Older SCRUBBER SYSTEM ATTENDANT.PLATE FILLER Work Phone: Start: 03-23-2021 Radiologic exam ches t 2 views Dali Older SCRUBBER SYSTEM ATTENDANT.PLATE FILLER Work Phone: Start: 08-06-2016 Mammography Dali Older SCRUBBER SYSTEM ATTENDANT.PLATE FILLER Work Phone: Start: 01-09-2012 Colonoscopy Dali Older SCRUBBER SYSTEM ATTENDANT.PLATE FILLER Work Phone: Plan of Treatment Date Care Activity Detail Author Start: 06-29-2029 Lipid panel Lipid Screening [facility] Start: 07-22-2028 Urine microalbumin profile [facility] Start: 02-12-2028 Lipid panel Lipid Screening [facility] Start: 06-30-2027 Diabetes Screening Diabetes Screening [facility] Start: 12-25-2026 Diabetes Screening Diabetes Screening [facility] Start: 12-10-2026 Diabetes Screening Diabetes Screening [facility] Start: 07-26-2026 Lipid 1996 panel - Serum or Plasma Lipid Screening [facility] Start: 07-26-2026 LIPID SCREEN LIPID SCREEN [facility] Start: 06-09-2026 Diabetes Screening Diabetes Screening [facility] Start: 02-11-2026 Diabetes Screening Diabetes Screening [facility] Start: 06-29-2025 Annual PCP Team Chronic Disease Visit Annual PCP Team Chronic Disease Visit [facility] Start: 06-29-2025 BP Controlled (<130/80) BP Controlled (<130/80) [facility] in Start: 06-29-2025 Creatinine measurement Serum Creatinine [facility] Start: 06-19-2025 Annual PCP Team Chronic Disease Visit Annual PCP Team Chronic Disease Visit [facility] Start: 06-19-2025 BP Controlled (<130/80) BP Controlled (<130/80) [facility] Start: 05-08-2025 Annual PCP Team Chronic Disease Visit Annual PCP Team Chronic Disease Visit [facility] Start: 04-02-2025 Annual PCP Team Chronic Disease Visit Annual PCP Team Chronic Disease Visit [facility] Start: 01-31-2025 DIABETES SCREEN DIABETES SCREEN [facility] Start: 01-31-2025 Diabetes Screening Diabetes Screening [facility] Start: 01-20-2025 End: 01-20-2025 Patient encounter procedure 01/20/2025 3:00 PM EST Office Visit Cardiology [address] [address] Katie Taylor MD [address] [place] [id number] Cardiology Comment on above: [facility] Start: 12-25-2024 Creatinine measurement Serum Creatinine [facility] Start: 12-10-2024 Annual PCP Team Chronic Disease Visit Annual PCP Team Chronic Disease Visit [facility] Start: 12-10-2024 Complete blood count Hemoglobin/Hematocrit [facility] Start: 12-10-2024 Creatinine measurement Serum Creatinine [facility] Start: 12-06-2024 LIPID SCREEN LIPID SCREEN [facility] Start: 11-05-2024 Annual PCP Team Chronic Disease Visit Annual PCP Team Chronic Disease Visit [facility] Start: 10-22-2024 End: 10-22-2024 Patient encounter procedure 10/22/2024 1:10 PM EDT Office Visit Rheumatology [address] [place] [address] [place] [address] [place] [address] est care and 6 month follow up osteoporosis/joint pain Rheumatology Comment on above: est care and 6 month follow up osteoporo sis/joint pain Start: 10-21-2024 Annual PCP Team Chronic Disease Visit Annual PCP Team Chronic Disease Visit [facility] Start: 08-26-2024 End: 08-26-2024 Patient encounter procedure 08/26/2024 9:00 AM EDT Office Visit Neurology [address] [id number] Georgia Freeman MD [address] [place] [address] Memory change [R41.3] Neurology Comment on above: Memory change [R41.3] Start: 08-10-2024 End: 08-10-2024 Patient encounter procedure 08/10/2024 2:00 PM EDT Office Visit [facility] [place] [address] [place] [address] Velvet Palacio MD [address] [place] [address] 6 week follow up [facility] [place] Comment on above: 6 week follow up Start: 07-26-2024 Hospital admission, emergency, from emergency room, medical nature [facility] Start: 07-26-2024 Verification routine [facility] Start: 07-26-2024 Admission procedure [facility] Start: 07-26-2024 DIABETES SCREEN DIABETES SCREEN [facility] Start: 07-09-2024 End: 07-09-2024 Patient encounter procedure 07/09/2024 2:00 PM EDT Appointment Cat Scan [address] [place] [address] Memory change [R41.3] Cat Scan Comment on above: Memory change [R41.3] Start: 07-01-2024 End: 09-30-2024 Ferritin [Mass/volume] in Serum or Plasma FERRITIN Lab Routine Anemia, unspecified type Expected: 07/01/2024, Expires: 09/30/2024 [facility] Comment on above: Expected: 07/01/2024, Expires: Start: 07-01-2024 End: 09-30-2024 Folate [Mass/volume] in Serum or Plasma FOLATE, SERUM Lab Routine Anemia, unspecified type Expected: 07/01/2024, Expires: 09/30/2024 [facility] Comment on above: Expected: 07/01/2024, Expires: Start: 07-01-2024 End: 09-30-2024 Iron and Iron binding capacity panel - Serum or Plasma IRON AND TIBC Lab Routine Anemia, unspecified type Expected: 07/01/2024, Expires: 09/30/2024 [facility] Comment on above: Expected: 07/01/2024, Expires: Start: 07-01-2024 End: 09-30-2024 RETICULOCYTE COUNT RETICULOCYTE COUNT Lab Routine Anemia, unspecified type Expected: 07/01/2024, Expires: 09/30/2024 [facility] Comment on above: Expected: 07/01/2024, Expires: Start: 06-29-2024 End: 06-29-2024 Patient encounter procedure [facility] [place] Comment on above: 3 month follow up 3 month follow up - referral to neurophychologist per 180 Start: 06-19-2024 End: 09-18-2024 CBC W Auto Differential panel - Blood COMPLETE BLOOD COUNT AND DIFFERENTIAL Lab Routine Shortness of breath Memory change Expected: 06/19/2024, Expires: 09/18/2024 [facility] Work Phone: Comment on above: Expected: 06/19/2024, Expires: Start: 06-19-2024 End: 09-18-2024 Cobalamin (Vitamin B12) [Mass/volume] in Serum or Plasma VITAMIN B12 Lab Routine Memory change Expected: 06/19/2024, Expires: 09/18/2024 [facility] Comment on above: Expected: 06/19/2024, Expires: Start: 06-19-2024 End: 09-18-2024 Comprehensive metabolic 2000 panel - Serum or Plasma COMPREHENSIVE METABOLIC PANEL Lab Routine Shortness of breath Memory change Expected: 06/19/2024, Expires: 09/18/2024 [facility] Comment on above: Expected: 06/19/2024, Expires: Start: 06-19-2024 End: 09-18-2024 Magnesium [Mass/volume] in Serum or Plasma MAGNESIUM Lab Routine Memory change Expected: 06/19/2024, Expires: 09/18/2024 [facility] Comment on above: Expected: 06/19/2024, Expires: Start: 06-19-2024 End: 09-18-2024 Thyrotropin [Units/volume] in Serum or Plasma THYROID STIMULATING HORMONE Lab Routine Memory change Expected: 06/19/2024, Expires: 09/18/2024 [facility] Comment on above: Expected: 06/19/2024, Expires: Start: 06-19-2024 End: 09-18-2024 Urinalysis complete panel - Urine URINALYSIS (WITH MICROSCOPIC) WITH CULTURE IF INDICATED Lab Routine Memory change Expected: 06/19/2024, Expires: 09/18/2024 [facility] Comment on above: Expected: 06/19/2024, Expires: Start: 06-19-2024 End: 06-19-2024 Patient encounter procedure 06/19/2024 10:00 AM EDT Office Visit [facility] [place] [address] [place], [place] [id number] Dali Rice APRN.PLATE FILLER [address] [place], [place] [id number] Requesting refill of prednisone for continued SOB. See TE 06/17/2024 [facility] Comment on above: Requesting refill of prednisone for cont inued SOB. See TE 06/17/2024 Start: 06-16-2024 End: 09-15-2024 Hemoglobin A1c in Blood HEMOGLOBIN A1C Lab Routine Obesity Expected: 06/16/2024, Expires: 09/15/2024 [facility] Comment on above: Expected: 06/16/2024, Expires: Start: 06-16-2024 End: 09-15-2024 Lipid 1996 panel - Serum or Plasma LIPID PANEL, FASTING Lab Routine Hyperlipidemia Expected: 06/16/2024, Expires: 09/15/2024 [facility] Comment on above: Expected: 06/16/2024, Expires: Start: 06-16-2024 End: 09-15-2024 Microalbumin/Creatinine [Mass Ratio] in Urine ALBUMIN/CREATININE RATIO, URINE Lab Routine CKD (chronic kidney disease) stage 3, GFR 30-59 ml/min ([facility]) Expected: 06/16/2024, Expires: 09/15/2024 [facility] Work Phone: Comment on above: Expected: 06/16/2024, Expires: Start: 06-09-2024 Creatinine measurement Serum Creatinine [facility] Start: 06-05-2024 End: 06-05-2024 Patient encounter procedure 06/05/2024 2:00 PM EDT Office Visit Cardiology [address] [place] [id number] Katie Taylor MD [address] [place] [phone] Acute on chronic diastolic congestive heart failure (HCC) [I50.33 Cardiology Comment on above: Acute on chronic diastolic congestive he art failure (HCC) [I50.33 Start: 05-14-2024 End: 05-14-2024 Patient encounter procedure 05/14/2024 2:20 PM EDT Office Visit Rheumatology [id number] [place], [place] [id number] [place] [address] [place] [address] est care and 6 month follow up osteoporosis/joint pain Rheumatology Comment on above: est care and 6 month follow up osteoporo sis/joint pain Start: 05-08-2024 End: 05-08-2024 Patient encounter procedure 05/08/2024 3:40 PM EST Office Visit Internal Medicine [address] [phone] Velvet Palacio MD [address] [place] [address] TCM [facility] f/u dc 05/03/24 for Pneumonia. Pt back on O2. See TCM 05/04/24. [facility] [place] Comment on above: TCM [facility] f/u dc 05/03/24 for Pneumonia. Pt back on O2. See TCM 05/04/24. Start: 05-03-2024 Patient discharge [facility] Start: 05-02-2024 Referral to service [facility] Start: 05-02-2024 Oxygen therapy [facility] Start: 05-01-2024 Following clinical pathway protocol [facility] Start: 05-01-2024 Assessment of risk of venous thromboembolism [facility] Start: 05-01-2024 Elevation of head of bed [facility] Start: 05-01-2024 Insertion of catheter into peripheral vein [facility] Start: 05-01-2024 Patient education [facility] Start: 05-01-2024 Physiotherapy of chest [facility] Start: 05-01-2024 Providing care according to standard [facility] Start: 05-01-2024 Provision of activity privileges [facility] Start: 05-01-2024 Referral to occupational therapist [facility] Start: 05-01-2024 Referral to service [facility] Start: 05-01-2024 [facility] Start: 05-01-2024 Admission procedure [facility] Start: 05-01-2024 Annual PCP Team Chronic Disease Visit Annual PCP Team Chronic Disease Visit [facility] Start: 05-01-2024 Covid-19 Vaccine (#1) Covid-19 Vaccine (#1) [facility] Comment on above: Postponed from 06/17/1961 (Declined at t his time) Start: 05-01-2024 Covid-19 Vaccine ( - season) Covid-19 Vaccine ( - season) [facility] Comment on above: Postponed from 11/02/2022 (Declined at t his time) Start: 05-01-2024 Pneumococcal vaccination Pneumococcal Vaccine (2 of 2 - PCV) [facility] Comment on above: Postponed from 01/28/2013 (Declined at t his time) Start: 05-01-2024 RSV Vaccine (1 - 1-dose 60+ series) RSV Vaccine (1 - 1-dose 60+ series) [facility] Comment on above: Postponed from 2020 (Declined at t his time) Start: 05-01-2024 RSV Vaccine (1 - Risk 60-74 years 1-dose series) RSV Vaccine (1 - Risk 60-74 years 1-dose series) [facility] Comment on above: Postponed from 2020 (Declined at t his time) Start: 05-01-2024 Shingrix Vaccine (1 of 2) Shingrix Vaccine (1 of 2) [facility] Comment on above: Postponed from 2010 (Declined at t his time) Start: 05-01-2024 Zoledronic acid therapy Alpha-1 Antitrypsin Deficiency Screening [facility] Comment on above: Postponed from 1990 (Declined at t his time) Start: 05-01-2024 Consultation [facility] Start: 05-01-2024 [facility] Start: 05-01-2024 Consultation [facility] Start: 05-01-2024 Patient referral to dietitian [facility] Start: 04-29-2024 Creatinine measurement Serum Creatinine [facility] Start: 04-02-2024 End: 04-02-2024 Patient encounter procedure 04/02/2024 11:00 AM EST Office Visit [facility] [place] [address] [place] [address] Dali Rice APRN.PLATE FILLER [address] [place] [address] 3 month follow up/discuss medication Levsin [facility] [place] Comment on above: 3 month follow up/discuss medication Lev sin Start: 03-23-2024 End: 03-23-2024 Patient encounter procedure 03/23/2024 2:20 PM EST Office Visit [facility] [place] [address] [place] [address] Dali Rice APRN.PLATE FILLER [address] [place] [address] 3 month follow up/discuss medication Levsin [facility] [place] Comment on above: 3 month follow up/discuss medication Lev sin Start: 03-18-2024 End: 03-18-2024 Follow-up encounter 03/18/2024 3:15 PM EST [facility] [address] [facility] [address] [place] [address] Nuris Barba APRN.PLATE FILLER [address] [place] [address] 2nd MBB follow up [facility] Comment on above: 2nd MBB follow up Start: 03-16-2024 End: 03-16-2024 ambulatory [facility] Comment on above: Bilateral MBBs w fluoro at T6-7 and T7-8 (2 of 2); 325mg asp AUTH GOOD CAD ( 5 - 03/03/25) Bilateral MBBs w fluoro at T6-7 and T7-8 (2 of 2); 325mg asp Start: 03-12-2024 End: 03-12-2024 Patient encounter procedure 03/12/2024 2:20 PM EST Office Visit [facility] [place] [address] [place], [place] [phone] Dali Rice APRN.PLATE FILLER [address] [place], [place] [phone] 3 month follow up [facility] [place] Comment on above: 3 month follow up Start: 03-02-2024 End: 03-02-2024 Follow-up encounter 03/02/2024 4:00 PM EST [facility] [address] [place] [address] Juanito Hobbs APRN.PLATE FILLER [address] [place] [address] 1st MBB follow up [facility] Comment on above: 1st MBB follow up Start: 02-28-2024 End: 02-28-2024 ambulatory [facility] Comment on above: Bilateral MBBs w fluoro at T6-7 and T7-8 (1 of 2); 325mg asp AUTH GOOD NPCR LMS - Bilateral MBBs w fluoro at T6-7 and T7-8 (1 of 2); 325mg asp Start: 02-25-2024 End: 05-26-2024 Lipid 1996 panel - Serum or Plasma LIPID PANEL BASIC Lab Routine Hyperlipidemia Expected: 02/25/2024, Expires: 05/26/2024 [facility] Comment on above: Expected: 02/25/2024, Expires: Start: 02-25-2024 End: 05-26-2024 Microalbumin/Creatinine [Mass Ratio] in Urine ALBUMIN/CREATININE RATIO, URINE Lab Routine CKD (chronic kidney disease) stage 3, GFR 30-59 ml/min ([facility]) Expected: 02/25/2024, Expires: 05/26/2024 [facility] Work Phone: Comment on above: Expected: 02/25/2024, Expires: Start: 02-12-2024 Annual PCP Team Chronic Disease Visit Annual PCP Team Chronic Disease Visit [facility] Start: 02-12-2024 Complete blood count Hemoglobin/Hematocrit [facility] Start: 02-12-2024 Creatinine measurement Serum Creatinine [facility] Start: 02-10-2024 End: 02-10-2024 Patient encounter procedure 02/10/2024 8:30 AM EST Office Visit Orthopaedics [address] [place], [place] [phone] Sebas Molina MD [address] [place], [place] [id number] My hands are getting worse. Orthopaedics Comment on above: My hands are getting worse. Start: 02-06-2024 End: 02-06-2024 Patient encounter procedure 02/06/2024 3:00 PM EST Office Visit Cardiology [address] [id number] Katie Taylor MD [address] [place] [address] Acute on chronic diastolic congestive heart failure (HCC) [I50.33 Cardiology Comment on above: Acute on chronic diastolic congestive he art failure (HCC) [I50.33 Start: 01-23-2024 End: 01-23-2024 Patient encounter procedure 01/23/2024 2:10 PM EST Appointment Mammogram [address] [place], [place] [id number] Mammogram Start: 01-16-2024 End: 01-16-2024 Patient encounter procedure [facility] Comment on above: new pt back pain Start: 01-10-2024 End: 04-10-2024 Basic metabolic 2000 panel - Serum or Plasma BASIC METABOLIC PANEL Lab Routine Hypokalemia Expected: 01/10/2024 (Approximate), Expires: 04/10/2024 [facility] Work Phone: Comment on above: Expected: 01/10/2024 (Approximate), Expi res: 04/10/2024 Start: 01-06-2024 End: 01-06-2024 Patient encounter procedure 01/06/2024 3:20 PM EST Office Visit [facility] [place] [address] [place] [address] Velvet Palacio MD [address] [place] [address] Potassium f/u [facility] [place] Comment on above: Potassium f/u Start: 12-26-2023 End: 12-26-2023 ambulatory 12/26/2023 4:00 PM EDT Results Only [facility] [address] [facility] [place] [address] [facility] Start: 12-26-2023 End: 03-26-2024 Basic metabolic 2000 panel - Serum or Plasma BASIC METABOLIC PANEL Lab Routine Stage 3 chronic kidney disease, unspecified whether stage 3a or 3b CKD (HCC) Expected: 12/26/2023 (Approximate), Expires: 03/26/2024 [facility] Work Phone: Comment on above: Expected: 12/26/2023 (Approximate), Expi res: 03/26/2024 Start: 12-16-2023 End: 12-16-2023 Patient encounter procedure 12/16/2023 12:45 PM EDT Office Visit Orthopaedics [address] [place] [address] Sebas Molina MD [address] [place], [place] [phone] Post op right CMC arthroplasty with tendon transfer and suspension Orthopaedics Comment on above: Post op right CMC arthroplasty with tend on transfer and suspension Start: 12-11-2023 End: 03-11-2024 Basic metabolic 2000 panel - Serum or Plasma [facility] Work Phone: Comment on above: Expected: 12/11/2023, Expires: Start: 12-11-2023 End: 03-11-2024 CBC panel - Blood by Automated count [facility] Comment on above: Expected: 12/11/2023, Expires: Start: 12-11-2023 End: 12-11-2023 Patient encounter procedure 12/11/2023 2:00 PM EDT Office Visit Internal Medicine [place] [address] [facility], [place] [phone] Dali Rice APRN.PLATE FILLER [address] [place], [place] [id number] 6 month f/u [facility] [place] Comment on above: 6 month f/u Start: 12-09-2023 End: 12-09-2023 Patient encounter procedure 12/09/2023 1:20 PM EDT Office Visit [facility] [place] [address] [place] [address] Velvet Palacio MD [address] [place] [address] Blood pressure check [facility] [place] Comment on above: Blood pressure check Start: 11-25-2023 End: 11-25-2023 Patient encounter procedure 11/25/2023 3:00 PM EDT Office Visit [facility] [place] [address] [place] [address] Dali Rice APRN.PLATE FILLER [address] [place] [address] Blood pressure check [facility] [place] Comment on above: Blood pressure check Start: 11-19-2023 End: 11-19-2023 Patient encounter procedure 11/19/2023 1:15 PM EDT Office Visit Orthopaedics [address] [address] Sebas Molina MD [address] [place] [address] Post op right CMC arthroplasty with tendon transfer and suspension Orthopaedics Comment on above: Post op right CMC arthroplasty with tend on transfer and suspension Start: 11-12-2023 End: 11-07-2024 25-hydroxyvitamin D3 [Mass/volume] in Serum or Plasma VITAMIN D 25 HYDROXY Lab Routine Osteoporosis, post menopausal Expected: 11/12/2023 (Approximate), Expires: 11/07/2024 [facility] Comment on above: Expected: 11/12/2023 (Approximate), Expi res: 11/07/2024 Start: 11-12-2023 End: 11-07-2024 Calcium [Mass/volume] in Serum or Plasma CALCIUM, TOTAL Lab Routine Osteoporosis, post menopausal Expected: 11/12/2023 (Approximate), Expires: 11/07/2024 [facility] Work Phone: Comment on above: Expected: 11/12/2023 (Approximate), Expi res: 11/07/2024 Start: 11-12-2023 End: 11-07-2024 CREATININE BLD CREATININE BLD Lab Routine Osteoporosis, post menopausal Expected: 11/12/2023 (Approximate), Expires: 11/07/2024 [facility] Comment on above: Expected: 11/12/2023 (Approximate), Expi res: 11/07/2024 Start: 11-12-2023 End: 11-12-2023 Patient encounter procedure 11/12/2023 1:00 PM EDT Office Visit Rheumatology [address] [place] [address] Mari Martinez, MANASA.PLATE FILLER [address] [place] [address] 6mo follow up osteoporosis/joint pain Rheumatology Comment on above: 6mo follow up osteoporosis/joint pain Start: 11-06-2023 End: 11-06-2023 Patient encounter procedure [facility] [place] Comment on above: follow up-elevated blood pressure Start: 11-05-2023 End: 11-05-2023 Patient encounter procedure Orthopaedics Comment on above: Post op right CMC arthroplasty with tend on transfer and suspension Start: 11-03-2023 Covid-19 Vaccine ( season) Covid-19 Vaccine ( season) [facility] Start: 11-03-2023 Covid-19 Vaccine ( season) Covid-19 Vaccine ( season) [facility] Start: 11-03-2023 Influenza vaccination [facility] Start: 10-29-2023 End: 10-29-2023 Patient encounter procedure 10/29/2023 3:30 PM EDT Office Visit Rheumatology [address] [id number] Mari Martinez, MANASA.PLATE FILLER [address] [place] [address] 6mo follow up osteoporosis Rheumatology Comment on above: 6mo follow up osteoporosis Start: 10-28-2023 End: 10-28-2023 Patient encounter procedure 10/28/2023 1:40 PM EDT Office Visit Cardiology [address] [address] Katie Taylor MD [address] [place] [address] Acute on chronic diastolic congestive heart failure (HCC) [I50.33 Cardiology Comment on above: Acute on chronic diastolic congestive he art failure (HCC) [I50.33 Start: 10-23-2023 End: 10-23-2023 Admission to same day surgery center 10/23/2023 11:38 AM EDT - 10/23/2023 1:28 PM EDT Surgery [facility] Surgery [address] [place] [address] Sebas Molina MD [address] [facility] [place] [address] ARTHROPLASTY CARPOMETACARPAL JOINTS [facility] Surgery Comment on above: ARTHROPLASTY CARPOMETACARPAL JOINTS Start: 10-23-2023 End: 10-23-2023 Arthrp interpos intercarpal/metacarpal joints ARTHROPLASTY CARPOMETACARPAL JOINTS Primary osteoarthritis of first carpometacarpal joint of right hand 10/23/2023 11:38 AM EDT ME OR Start: 10-23-2023 Subsequent hospital visit by physician 10/23/2023 11:38 AM EDT Hospital Encounter [facility] Surgery [address] [place] [address] Sebas Molina MD [address] [place] [address] Primary osteoarthritis of first carpometacarpal joint of right hand [M18.11] [facility] Surgery Comment on above: Primary osteoarthritis of first carpomet acarpal joint of right hand [M18.11] Start: 10-23-2023 End: 10-23-2023 Admission to same day surgery center 10/23/2023 9:40 AM EDT - 10/23/2023 11:07 AM EDT Surgery [facility] Surgery [address] [place] [address] Seabs Molina MD [address] [place] [address] ARTHROPLASTY CARPOMETACARPAL JOINTS [facility] Comment on above: ARTHROPLASTY CARPOMETACARPAL JOINTS Start: 10-23-2023 End: 10-23-2023 Arthrp interpos intercarpal/metacarpal joints ARTHROPLASTY CARPOMETACARPAL JOINTS Primary osteoarthritis of first carpometacarpal joint of right hand 10/23/2023 9:40 AM EDT ME OR Start: 10-23-2023 Subsequent hospital visit by physician 10/23/2023 9:40 AM EDT Hospital Encounter [facility] Surgery [address] [place] [address] Sebas Molina MD [address] [place] [address] Primary osteoarthritis of first carpometacarpal joint of right hand [M18.11] [facility] Surgery Comment on above: Primary osteoarthritis of first carpomet acarpal joint of right hand [M18.11] Start: 10-22-2023 End: 10-22-2023 Patient encounter procedure 10/22/2023 12:20 PM EDT Office Visit Family Medicine [facility] [address] [place] [address] Ines Lopez PA-C [address] [place] [address] Medication Review--Needing Imodium more frequently. Requests Sumatriptan refill. Doesn't feel hydroyxzine is as effective for anxiety. [facility] [place] Comment on above: Medication Review--Needing Imodium more frequently. Requests Sumatriptan refill. Doesn't feel hydroyxzine is as effective for anxiety. Start: 10-07-2023 End: 10-07-2023 Anesthesia consultation 10/07/2023 3:40 PM EDT PAT Pre Anesthesia [address] [place] [address] 1, [facility] [address] [place] [address] ARTHROPLASTY CARPOMETACARPAL JOINTS [19161] - Hand - Right Pre Anesthesia Comment on above: ARTHROPLASTY CARPOMETACARPAL JOINTS [220 90] - Hand - Right Start: 10-02-2023 ANNUAL PCP TEAM CHRONIC DISEASE VISIT ANNUAL PCP TEAM CHRONIC DISEASE VISIT [facility] Start: 10-02-2023 BP CONTROLLED (<130/80) BP CONTROLLED (<130/80) [facility] Start: 09-13-2023 End: 09-13-2023 Patient encounter procedure 09/13/2023 8:45 AM EDT Office Visit Pulmonary Medicine [address] [place] [address] Radha Willams MD [address] [place] [address] Follow up/ No available appt sooner Pulmonary Medicine Comment on above: Follow up/ No available appt sooner Start: 09-02-2023 End: 09-02-2023 Patient encounter procedure Orthopaedics Comment on above: Both Wrist pain Xray Start: 09-01-2023 Influenza vaccination Influenza Vaccine (#1) [facility] Comment on above: Postponed from 11/02/2022 (Declined at t his time) Start: 08-23-2023 End: 08-23-2023 Patient encounter procedure 08/23/2023 3:00 PM EDT Office Visit Cardiology [address] [address] Katie Taylor MD [address] [place] [address] Acute on chronic diastolic congestive heart failure (HCC) [I50.33 Cardiology Comment on above: Acute on chronic diastolic congestive he art failure (HCC) [I50.33 Start: 08-12-2023 DIABETES SCREEN DIABETES SCREEN [facility] Start: 07-24-2023 End: 07-24-2023 Patient encounter procedure 07/24/2023 9:00 AM EDT Appointment Radiology [address] [place] [address] Asthma with chronic obstructive pulmonary disease (COPD) (HCC) [J44.89] Radiology Comment on above: Asthma with chronic obstructive pulmonar y disease (COPD) (HCC) [J44.89] Start: 07-24-2023 End: 07-24-2023 ambulatory PULM LAB [facility] Comment on above: Asthma with chronic obstructive pulmonar y disease (COPD) (HCC) [J44.89] Start: 07-23-2023 End: 07-23-2023 Patient encounter procedure 07/23/2023 4:00 PM EDT Appointment Mammogram [address] [place] [address] JEAN CLAUDE SCREENING Mammogram Comment on above: JEAN CLAUDE SCREENING Start: 07-19-2023 End: 08-03-2024 XR Chest PA and Lateral XR CHEST 2V FRONTAL/LAT Radiology Routine Community acquired pneumonia of right lower lobe of lung Expected: 07/19/2023, Expires: 08/03/2024 [facility] Work Phone: Comment on above: Expected: 07/19/2023, Expires: Start: 07-18-2023 End: 07-18-2023 Patient encounter procedure 07/18/2023 2:30 PM EDT Appointment Radiology [address] [place] [id number] XR WRIST GENERAL 3V PA/LAT/OBL BILATERAL Radiology Comment on above: XR WRIST GENERAL 3V PA/LAT/OBL BILATERAL Start: 07-18-2023 End: 07-18-2023 Patient encounter procedure Radiology Comment on above: X-ray Both Wrist pain Start: 07-18-2023 End: 07-18-2023 ambulatory PULM LAB [facility] Comment on above: Asthma with chronic obstructive pulmonar y disease (COPD) ([facility]) [J44.89] Start: 07-16-2023 End: 10-15-2023 Basic metabolic 2000 panel - Serum or Plasma BASIC METABOLIC PANEL Lab Routine Stage 3 chronic kidney disease, unspecified whether stage 3a or 3b CKD ([facility]) Expected: 07/16/2023, Expires: 10/15/2023 [facility] Work Phone: Comment on above: Expected: 07/16/2023, Expires: Start: 07-11-2023 End: 07-11-2023 Patient encounter procedure [facility] [place] Comment on above: follow up - BP, CHF, pnuemonia, hypoxia Pt needs refill on A mitriptyline. follow up - BP, CHF, pnuemonia, hypoxia Start: 07-05-2023 End: 10-04-2023 Alpha 1 antitrypsin [Mass/volume] in Serum or Plasma [id number] Lab Routine Asthma with chronic obstructive pulmonary disease (COPD) ([facility]) Expected: 07/05/2023, Expires: 10/04/2023 [facility] Comment on above: Expected: 07/05/2023, Expires: Start: 06-10-2023 End: 09-09-2023 Basic metabolic 2000 panel - Serum or Plasma [facility] Work Phone: Comment on above: Expected: 06/10/2023, Expires: Start: 06-10-2023 End: 09-09-2023 Natriuretic peptide.B prohormone N-Terminal [Mass/volume] in Serum or Plasma [facility] Work Phone: Comment on above: Expected: 06/10/2023, Expires: Start: 06-06-2023 Patient discharge [facility] Start: 06-06-2023 [facility] Start: 06-04-2023 Troponin I measurement [facility] Start: 06-04-2023 Following clinical pathway protocol [facility] Start: 06-04-2023 Ambulation without limitation [facility] Start: 06-04-2023 Assessment of risk of venous thromboembolism [facility] Start: 06-04-2023 Elevation of head of bed [facility] Start: 06-04-2023 Incentive spirometry [facility] Start: 06-04-2023 Inhalation therapy procedure [facility] Start: 06-04-2023 Insertion of catheter into peripheral vein [facility] Start: 06-04-2023 Measuring intake and output [facility] Start: 06-04-2023 Patient education [facility] Start: 06-04-2023 Providing care according to standard [facility] Start: 06-04-2023 Referral to occupational therapist [facility] Start: 06-04-2023 Referral to service [facility] Start: 06-04-2023 Speech therapy assessment [facility] Start: 06-04-2023 [facility] Start: 06-04-2023 End: 06-04-2023 Oxygen therapy [facility] Start: 06-04-2023 Hospital admission, emergency, from emergency room, medical nature [facility] Start: 06-04-2023 Bacteria identified in Sputum by Culture [facility] Start: 06-04-2023 Legionella pneumophila Ag [Presence] in Urine [facility] Start: 06-04-2023 Streptococcus pneumoniae antigen assay [facility] Start: 06-04-2023 [facility] Start: 06-04-2023 Troponin I measurement [facility] Start: 06-04-2023 Verification routine [facility] Start: 06-04-2023 Admission procedure [facility] Start: 06-04-2023 Bacteria identified in Blood by Culture Blood Culture [facility] Start: 06-04-2023 End: 06-04-2023 Blood culture [facility] Start: 06-04-2023 Continuous pulse oximetry [facility] Start: 06-04-2023 Dual pressure spontaneous ventilation support [facility] Start: 05-20-2023 Patient discharge [facility] Start: 05-19-2023 Consultation [facility] Start: 05-17-2023 Physiotherapy of chest [facility] Start: 05-17-2023 Physiotherapy of chest [facility] Start: 05-16-2023 End: 08-15-2023 Calcium [Mass/volume] in Serum or Plasma CALCIUM TOTAL BLD Lab Routine Osteoporosis, post menopausal Encounter for long-term (current) use of medications Expected: 05/16/2023 (Approximate), Expires: 08/15/2023 [facility] Work Phone: Comment on above: Expected: 05/16/2023 (Approximate), Expi res: 08/15/2023 Start: 05-16-2023 Referral to service [facility] Start: 05-16-2023 Contact precautions [facility] Start: 05-14-2023 Consultation [facility] Start: 05-13-2023 Referral to occupational therapist [facility] Start: 05-13-2023 Referral to service [facility] Start: 05-12-2023 Speech therapy assessment [facility] Start: 05-11-2023 [facility] Start: 05-11-2023 Oxygen therapy [facility] Start: 05-11-2023 Respiratory secretion precautions [facility] Start: 05-11-2023 Following clinical pathway protocol [facility] Start: 05-11-2023 Ambulation without limitation [facility] Start: 05-11-2023 Assessment of risk of venous thromboembolism [facility] Start: 05-11-2023 Insertion of catheter into peripheral vein [facility] Start: 05-11-2023 Measuring intake and output [facility] Start: 05-11-2023 Patient referral to dietitian [facility] Start: 05-11-2023 Providing care according to standard [facility] Start: 05-11-2023 [facility] Start: 05-11-2023 Verification routine [facility] Start: 05-11-2023 Admission procedure [facility] Start: 05-11-2023 Bacteria identified in Blood by Culture Blood Culture [facility] Start: 05-11-2023 Hospital admission, emergency, from emergency room, medical nature [facility] Start: 05-11-2023 [facility] Start: 05-11-2023 End: 05-11-2023 Blood culture [facility] Start: 05-11-2023 Enteric precautions [facility] Start: 05-11-2023 Inhalation therapy procedure [facility] Start: 01-31-2023 ANNUAL PCP TEAM CHRONIC DISEASE VISIT ANNUAL PCP TEAM CHRONIC DISEASE VISIT [facility] Start: 01-31-2023 HEMOGLOBIN/HEMATOCRIT HEMOGLOBIN/HEMATOCRIT [facility] Start: 01-31-2023 SERUM CREATININE SERUM CREATININE [facility] Start: 01-22-2023 End: 04-23-2023 Lipid 1996 panel - Serum or Plasma LIPID PANEL BASIC Lab Routine Hyperlipidemia Expected: 01/22/2023, Expires: 04/23/2023 [facility] Work Phone: Comment on above: Expected: 01/22/2023, Expires: Start: 01-22-2023 End: 04-23-2023 Renal function 2000 panel - Serum or Plasma RENAL FUNCTION PANEL Lab Routine CKD (chronic kidney disease) stage 3, GFR 30-59 ml/min ([facility]) Expected: 01/22/2023, Expires: 04/23/2023 [facility] Work Phone: Comment on above: Expected: 01/22/2023, Expires: Start: 01-03-2023 ANNUAL PCP TEAM CHRONIC DISEASE VISIT ANNUAL PCP TEAM CHRONIC DISEASE VISIT [facility] Start: 11-14-2022 Bacteria identified in Urine by Culture Urine Culture [facility] Start: 11-14-2022 [facility] Start: 11-02-2022 Influenza vaccination [facility] Start: 10-09-2022 [facility] Start: 10-01-2022 End: 12-01-2022 Amylase [Enzymatic activity/volume] in Serum or Plasma AMYLASE BLD Lab Routine Epigastric pain Expected: 10/01/2022, Expires: 12/01/2022 [facility] Work Phone: Comment on above: Expected: 10/01/2022, Expires: Start: 10-01-2022 End: 12-01-2022 CBC W Auto Differential panel - Blood CBC + DIFF Lab Routine Essential hypertension Epigastric pain Diarrhea, unspecified type Expected: 10/01/2022, Expires: 12/01/2022 [facility] Work Phone: Comment on above: Expected: 10/01/2022, Expires: Start: 10-01-2022 End: 12-01-2022 Comprehensive metabolic 2000 panel - Serum or Plasma COMP METABOLIC PANEL Lab Routine Essential hypertension Hyperlipidemia, unspecified hyperlipidemia type Epigastric pain Diarrhea, unspecified type Expected: 10/01/2022, Expires: 12/01/2022 [facility] Work Phone: Comment on above: Expected: 10/01/2022, Expires: 3 Start: 10-01-2022 End: 12-01-2022 Lipase [Enzymatic activity/volume] in Serum or Plasma LIPASE BLD Lab Routine Epigastric pain Expected: 10/01/2022, Expires: 12/01/2022 [facility] Work Phone: Comment on above: Expected: 10/01/2022, Expires: 3 Start: 10-01-2022 End: 12-01-2022 Lipid 1996 panel - Serum or Plasma LIPID PANEL BASIC Lab Routine Hyperlipidemia, unspecified hyperlipidemia type Expected: 10/01/2022, Expires: 12/01/2022 [facility] Work Phone: Comment on above: Expected: 10/01/2022, Expires: 3 Start: 10-01-2022 End: 12-01-2022 PAIN PANEL, UR QUANT PAIN PANEL, UR QUANT Lab Routine Fibromyalgia Medication management Expected: 10/01/2022, Expires: 12/01/2022 [facility] Work Phone: Comment on above: Expected: 10/01/2022, Expires: 3 Start: 10-01-2022 End: 12-01-2022 TOX SCREEN ROUT UR TOX SCREEN ROUT UR Lab Routine Fibromyalgia Medication management Expected: 10/01/2022, Expires: 12/01/2022 [facility] Work Phone: Comment on above: Expected: 10/01/2022, Expires: 3 Start: 09-18-2022 End: 11-18-2022 Lipid 1996 panel - Serum or Plasma LIPID PANEL BASIC Lab Routine Hyperlipidemia Expected: 09/18/2022, Expires: 11/18/2022 [facility] Work Phone: Comment on above: Expected: 09/18/2022, Expires: 3 Start: 08-31-2022 Influenza vaccination INFLUENZA (#1) [facility] Comment on above: Postponed from 11/02/2021 (Declined at t his time) Start: 07-26-2022 ANNUAL PCP TEAM CHRONIC DISEASE VISIT ANNUAL PCP TEAM CHRONIC DISEASE VISIT [facility] Start: 07-26-2022 HEMOGLOBIN/HEMATOCRIT HEMOGLOBIN/HEMATOCRIT [facility] Start: 07-26-2022 PNEUMOCOCCAL (2 - PCV) PNEUMOCOCCAL (2 - PCV) [facility] Comment on above: Postponed from 01/28/2013 (Declined at t his time) Start: 07-26-2022 SERUM CREATININE SERUM CREATININE [facility] Start: 06-26-2022 ANNUAL PCP TEAM CHRONIC DISEASE VISIT ANNUAL PCP TEAM CHRONIC DISEASE VISIT [facility] Start: 06-26-2022 COVID-19 VACCINE (#1) COVID-19 VACCINE (#1) [facility] Comment on above: Postponed from 1965 (Declined at t his time) Postponed from 06/17 (Declined at this time) Start: 06-26-2022 COVID-19 VACCINE (1) COVID-19 VACCINE (1) [facility] Comment on above: Postponed from 1965 (Declined at t his time) Start: 06-26-2022 SHINGRIX VACCINE (1 of 2) SHINGRIX VACCINE (1 of 2) [facility] Comment on above: Postponed from 2010 (Declined at t his time) Start: 06-19-2022 End: 08-19-2022 Lipid 1996 panel - Serum or Plasma LIPID PANEL BASIC Lab Routine Hyperlipidemia Expected: 06/19/2022, Expires: 08/19/2022 [facility] Work Phone: Comment on above: Expected: 06/19/2022, Expires: 3 Start: 03-23-2022 ANNUAL PCP TEAM CHRONIC DISEASE VISIT ANNUAL PCP TEAM CHRONIC DISEASE VISIT [facility] Start: 01-31-2022 End: 04-02-2022 Amylase [Enzymatic activity/volume] in Serum or Plasma [facility] Work Phone: Comment on above: Expected: 01/31/2022, Expires: 3 Start: 01-31-2022 End: 04-02-2022 CBC W Auto Differential panel - Blood [facility] Work Phone: Comment on above: Expected: 01/31/2022, Expires: 3 Start: 01-31-2022 End: 04-02-2022 Comprehensive metabolic 2000 panel - Serum or Plasma [facility] Work Phone: Comment on above: Expected: 01/31/2022, Expires: 3 Start: 01-31-2022 End: 04-02-2022 Lipase [Enzymatic activity/volume] in Serum or Plasma [facility] Work Phone: Comment on above: Expected: 01/31/2022, Expires: 3 Start: 01-08-2022 Colonoscopy COLONOSCOPY [facility] Start: 01-08-2022 COLORECTAL CANCER SCREENING COLORECTAL CANCER SCREENING [facility] Start: 01-08-2022 Screening for malignant neoplasm of colon [facility] Start: 11-02-2021 Influenza vaccination [facility] Start: 08-11-2021 HEMOGLOBIN/HEMATOCRIT HEMOGLOBIN/HEMATOCRIT [facility] Start: 08-11-2021 SERUM CREATININE SERUM CREATININE [facility] Start: 07-26-2021 End: 09-25-2021 TOX SCREEN ROUT UR TOX SCREEN ROUT UR Lab Routine Poor short term memory Expected: 07/26/2021, Expires: 09/25/2021 [facility] Work Phone: Comment on above: Expected: 07/26/2021, Expires: 2 Start: 07-26-2021 End: 09-25-2021 Urinalysis complete panel - Urine UA WITH CULTURE IF INDICATED Lab Routine Poor short term memory Expected: 07/26/2021, Expires: 09/25/2021 [facility] Work Phone: Comment on above: Expected: 07/26/2021, Expires: 2 Start: 06-26-2021 End: 08-26-2021 C reactive protein [Mass/volume] in Serum or Plasma C-REACTIVE PROTEIN (CRP) Lab Routine Poor short term memory Chronic pain of multiple joints Expected: 06/26/2021, Expires: 08/26/2021 [facility] Work Phone: Comment on above: Expected: 06/26/2021, Expires: 2 Start: 06-26-2021 End: 08-26-2021 Erythrocyte sedimentation rate SED RATE WESTERGREN Lab Routine Poor short term memory Chronic pain of multiple joints Expected: 06/26/2021, Expires: 08/26/2021 [facility] Work Phone: Comment on above: Expected: 06/26/2021, Expires: 2 Start: 06-26-2021 End: 08-26-2021 Thyrotropin [Units/volume] in Serum or Plasma TSH BLD Lab Routine Poor short term memory Expected: 06/26/2021, Expires: 08/26/2021 [facility] Work Phone: Comment on above: Expected: 06/26/2021, Expires: 2 Start: 06-26-2021 End: 08-26-2021 VITAMIN B12 BLOOD VITAMIN B12 BLOOD Lab Routine Poor short term memory Expected: 06/26/2021, Expires: 08/26/2021 [facility] Work Phone: Comment on above: Expected: 06/26/2021, Expires: 2 Start: 2020 RSV Vaccine (1 - 1-dose 60+ series) RSV Vaccine (1 - 1-dose 60+ series) [facility] Start: 2020 RSV Vaccine (1 - Risk 60-74 years 1-dose series) RSV Vaccine (1 - Risk 60-74 years 1-dose series) [facility] Start: 11-02-2020 Influenza vaccination INFLUENZA (#1) [facility] Start: 08-06-2017 Mammography [facility] Start: 08-06-2017 Screening for malignant neoplasm of breast Mammogram Screening [facility] Start: 01-28-2013 PNEUMOCOCCAL (2 - PCV) PNEUMOCOCCAL (2 - PCV) [facility] Start: 01-28-2013 Pneumococcal vaccination [facility] Start: 01-28-2013 Pneumococcal Vaccine: 50+ (2 of 2 - PCV) Pneumococcal Vaccine: 50+ (2 of 2 - PCV) [facility] Start: 2010 SHINGRIX VACCINE (1 of 2) SHINGRIX VACCINE (1 of 2) [facility] Start: 2005 COLOGUARD (FIT-DNA) COLOGUARD (FIT-DNA) [facility] Start: [address] COLONOGRAPHY [facility] Start: 2005 FECAL OCCULT BLOOD FECAL OCCULT BLOOD [facility] Start: 2005 Screening for malignant neoplasm of colon [facility] Start: 2005 SIGMOIDOSCOPY SIGMOIDOSCOPY [facility] Start: 1990 Zoledronic acid therapy ALPHA-1 ANTITRYPSIN DEFICIENCY SCREENING [facility] Start: 1978 BP CONTROLLED (<130/80) BP CONTROLLED (<130/80) [facility] Start: 1965 COVID-19 VACCINE (1) COVID-19 VACCINE (1) [facility] Start: 06-17-1961 COVID-19 VACCINE (#1) COVID-19 VACCINE (#1) [facility] Clostridioides diffi cile DNA [Presence] in Unspecified specimen by RICK with probe detection [facility] Clostridioides diffi cile toxin genes [Presence] in Stool by RICK with probe detection C. DIFFICILE PCR Lab Routine Epigastric pain Diarrhea, unspecified type Ordered: 10/01/2022 [facility] Work Phone: Comment on above: Ordered: 10/01/2022 COLOGUARD COLOGUARD Lab Ro utine Colon cancer screening Ordered: 01/03/2022 [facility] Work Phone: Comment on above: Ordered: 01/03/2022 End: 03-03-2023 Ct abdomen w/o contrast material CT ABDOMEN WO IVCON Radiology Routine Elevated lipase Elevated amylase RUQ pain Nausea Chronic diarrhea 1 Occurrences starting 02/01/2022 until 03/03/2023 [facility] Work Phone: Comment on above: 1 Occurrences starting 02/01/2022 until 03/03/2023 End: 07-29-2025 CT Head WO contrast CT BRAIN WO IVCON Radiology Routine Memory change 1 Occurrences starting 06/29/2024 until 07/29/2025 [facility] Work Phone: Comment on above: 1 Occurrences starting 06/29/2024 until 07/29/2025 End: 12-05-2024 CT Thoracic spine WO contrast CT THORACIC SPINE WO IVCON Radiology Routine Thoracic degenerative disc disease Pain syndrome, chronic Compression deformity of vertebra Abnormal x-ray 1 Occurrences starting 11/06/2023 until 12/05/2024 [facility] Work Phone: Comment on above: 1 Occurrences starting 11/06/2023 until 12/05/2024 End: 09-26-2024 DBT Breast - bilateral screening JEAN CLAUDE SCREENING W TITO Radiology Routine Encounter for screening mammogram for breast cancer 1 Occurrences starting 08/28/2023 until 09/26/2024 [facility] Work Phone: Comment on above: 1 Occurrences starting 08/28/2023 until 09/26/2024 End: 10-31-2023 DXA-AXIAL SKELETON DXA-AXIAL SKELETON Radiology Routine Encounter for screening for osteoporosis Asymptomatic postmenopausal status 1 Occurrences starting 10/01/2022 until 10/31/2023 [facility] Work Phone: Comment on above: 1 Occurrences starting 10/01/2022 until 10/31/2023 ENTERIC BACTERIAL PA TEO BY PCR ENTERIC BACTERIAL PANEL BY PCR Lab Routine Epigastric pain Diarrhea, unspecified type Ordered: 10/01/2022 [facility] Work Phone: Comment on above: Ordered: 10/01/2022 Gastrointestinal pat hogens panel - Stool by RICK with probe detection [facility] Giardia lamblia Ag [Presence] in Stool by Immunoassay [facility] Hemoglobin.gastroint estina l.lower [Presence] in Stool by Immunoassay IMMUNOCHEMICAL FECAL OCCULT BLOOD TEST Lab Routine Anemia, unspecified type Ordered: 07/01/2024 [facility] Work Phone: Comment on above: Ordered: 07/01/2024 End: 08-03-2024 LUNG DIFFUSION CAPACITY (DLCO) LUNG DIFFUSION CAPACITY (DLCO) PFT Routine Asthma with chronic obstructive pulmonary disease (COPD) (HCC) 1 Occurrences starting 07/05/2023 until 08/03/2024 [facility] Comment on above: 1 Occurrences starting 07/05/2023 until 08/03/2024 End: 08-03-2024 LUNG VOLUMES LUNG VOLUMES PFT Routine Asthma with chronic obstructive pulmonary disease (COPD) (HCC) 1 Occurrences starting 07/05/2023 until 08/03/2024 [facility] Comment on above: 1 Occurrences starting 07/05/2023 until 08/03/2024 Magnesium [Mass/volu me] in Serum or Plasma [facility] Ova and parasites identified in Unspecified specimen by Light microscopy [facility] Patient Education ED Pyelonephri tis, Female (Adult) [facility] Work Phone: Patient referral [facility] Work Phone: End: 11-17-2022 Screening mammography bi 2-view breast inc cad JEAN CLAUDE SCREENING Radiology Routine Encounter for screening mammogram for breast cancer 1 Occurrences starting 10/18/2021 until 11/17/2022 [facility] Work Phone: Comment on above: 1 Occurrences starting 10/18/2021 until 11/17/2022 End: 08-03-2024 SPIROMETRY WITH DILATOR IF OBSTRUCTED SPIROMETRY WITH DILATOR IF OBSTRUCTED PFT Routine Asthma with chronic obstructive pulmonary disease (COPD) (HCC) 1 Occurrences starting 07/05/2023 until 08/03/2024 [facility] Comment on above: 1 Occurrences starting 07/05/2023 until 08/03/2024 End: 03-02-2023 Us abdominal real time w/image limited US ABD RT UPPER QUADRANT Radiology Routine Diarrhea, unspecified type Right upper quadrant abdominal tenderness without rebound tenderness Nausea 1 Occurrences starting 01/31/2022 until 03/02/2023 [facility] Work Phone: Comment on above: 1 Occurrences starting 01/31/2022 until 03/02/2023 End: 07-09-2024 XR Chest PA and Lateral XR CHEST 2V FRONTAL/LAT Radiology STAT Community acquired pneumonia, unspecified laterality Acute on chronic respiratory failure with hypoxia (HCC) Centrilobular emphysema (HCC) 1 Occurrences starting 06/10/2023 until 07/09/2024 [facility] Work Phone: Comment on above: 1 Occurrences starting 06/10/2023 until 07/09/2024 End: 07-19-2025 XR Chest PA and Lateral XR CHEST 2V FRONTAL/LAT Radiology Routine Shortness of breath 1 Occurrences starting 06/19/2024 until 07/19/2025 [facility] Comment on above: 1 Occurrences starting 06/19/2024 until 07/19/2025 XR Chest PA and Lateral XR CHEST 2V FRONTAL/LAT Radiology Routine Shortness of breath 06/19/2024 10:58 AM EDT [facility] XR Wrist - bilateral PA and Lateral and Oblique XR WRIST GENERAL 3V PA/LAT/OBL BILATERAL Radiology Routine Pain 09/02/2023 9:09 AM EDT [facility] Work Phone: [facility] Immunizations Immunization Date Immunization Notes Care Provider [facility] 12-11-2023 influenza, seasonal, injectable Dali Older SCRUBBER SYSTEM ATTENDANT.PLATE FILLER Work Phone: [facility] 12-03-2019 influenza, injectabl e, quadrivalent, contains preservative Dali Older SCRUBBER SYSTEM ATTENDANT.PLATE FILLER Work Phone: [facility] 12-03-2019 influenza virus vacc ine, unspecified formulation Dali Older SCRUBBER SYSTEM ATTENDANT.PLATE FILLER Work Phone: [facility] 07-22-2018 tetanus toxoid, redu vida diphtheria toxoid, and acellular pertussis vaccine, adsorbed Dali Older SCRUBBER SYSTEM ATTENDANT.[facility] Work Phone: [facility] Work Phone: 12-13-2015 influenza, injectabl e, quadrivalent, contains preservative Dali Older SCRUBBER SYSTEM ATTENDANT.[facility] Work Phone: [facility] 03-25-2015 influenza, injectabl e, quadrivalent, preservative free [facility] 03-25-2015 influenza, seasonal, injectable, preservative free Dali Older SCRUBBER SYSTEM ATTENDANT.PLATE FILLER Work Phone: [facility] Work Phone: 01-01-2013 influenza virus vacc ine, unspecified formulation Dali Older SCRUBBER SYSTEM ATTENDANT.[facility] Work Phone: [facility] 01-29-2012 pneumococcal polysaccharide vaccine, 23 valent Dali Older SCRUBBER SYSTEM ATTENDANT.[facility] Work Phone: [facility] 12-03-2011 influenza virus vacc ine, unspecified formulation Dali Older SCRUBBER SYSTEM ATTENDANT.PLATE FILLER Work Phone: [facility] 01-04-2011 influenza virus vacc ine, unspecified formulation Dali Older SCRUBBER SYSTEM ATTENDANT.[facility] Work Phone: [facility] 01-04-2011 tetanus toxoid, redu vida diphtheria toxoid, and acellular pertussis vaccine, adsorbed Dali Older SCRUBBER SYSTEM ATTENDANT.PLATE FILLER Work Phone: [facility] 01-12-2010 influenza virus vacc ine, unspecified formulation Dali Older SCRUBBER SYSTEM ATTENDANT.PLATE FILLER Work Phone: [facility] 12-07-2008 influenza virus vacc ine, unspecified formulation Dali Older SCRUBBER SYSTEM ATTENDANT.PLATE FILLER Work Phone: [facility] Work Phone: 01-07-2008 influenza virus vacc ine, unspecified formulation Dali Older SCRUBBER SYSTEM ATTENDANT.PLATE FILLER Work Phone: [facility] 12-31-2006 influenza virus vacc ine, unspecified formulation Dali Older SCRUBBER SYSTEM ATTENDANT.PLATE FILLER Work Phone: [facility] 01-02-2003 pneumococcal polysaccharide vaccine, 23 valent Dali Older SCRUBBER SYSTEM ATTENDANT.PLATE FILLER Work Phone: [facility] Work Phone: Payers Date Payer Category Payer Unknown [id number] 2024 Medicare (Managed Care) [id number]. [id number] 2023 Private Health Insurance [id number] 2023 Medicaid [id number] 2023 Medicare [id number] 2023 Self-pay [id number] 2021 Medicare UHC MEDICARE UHC DUAL COMPLETE HMO SNP [id number] 2021-[facility] [phone] [address] [place] [address] Medicare [id number] 2020 Medicare HUMANA MEDICARE HUMANA GOLD PLUS [id number] 2020-2021 [address] [address] [place] [address] O [id number] 2001 Medicare [id number] 2001 Medicare [id number] 2001 Medicare [id number] 1960 Unknown [id number] 27 Unknown [facility] MCRDUAL COMPLETE [id number] Unknown [id number] 2.16.840.1.085164.3.579.2.4 62 Unknown [id number] 2.16.840.1.051280.3.579.2.4 62 Unknown [id number] 2.16.840.1.709752.3.579.2.4 62 Unknown [id number] 2.16.840.1.716367.3.579.2.4 62 Unknown [id number] 2.16.840.1.553350.3.579.2.4 62 Unknown [id number] 2.16.840.1.577700.3.579.2.4 62 Unknown [id number] 2.16.840.1.869989.3.579.2.4 62 Unknown [id number] 2.16.840.1.620027.3.579.2.4 62 Unknown [id number] 2.16.840.1.261594.3.579.2.4 62 Unknown [id number] 2.16.840.1.295872.3.579.2.4 62 Unknown [id number] 2.16.840.1.028817.3.579.2.4 62 Unknown [id number] 2.16.840.1.281820.3.579.2.4 62 Unknown [id number] 2.16.840.1.730662.3.579.2.4 62 Unknown [id number] 2.16.840.1.351697.3.579.2.4 62 Unknown [id number] 2.16.840.1.753875.3.579.2.4 62 Unknown [id number] 2.16.840.1.710191.3.579.2.4 62 Unknown [id number] 2.16.840.1.430316.3.579.2.4 62 Unknown [id number] 2.16.840.1.893365.3.579.2.4 62 Unknown [id number] 2.16.840.1.499143.3.579.2.4 62 Unknown [id number] 2.16.840.1.798631.3.579.2.4 62 Unknown [id number] 2.16.840.1.410340.3.579.2.4 62 Unknown [id number] 2.16.840.1.416678.3.579.2.4 62 Unknown [id number] 2.16.840.1.233293.3.579.2.4 62 Unknown [id number] 2.16.840.1.673224.3.579.2.4 62 Unknown [id number] 2.16.840.1.423085.3.579.2.4 62 Social History Date Type Detail Facility Start: 04-06-2014 End: 10-22-2023 Tobacco smoking status NHIS Ex-smoker [facility] Work Phone: Start: 1973 End: 03-04-1989 History of tobacco use Current smoker [facility] Work Phone: Start: 1973 End: 03-04-1989 History of tobacco use Cigarette Smoker [facility] Work Phone: Start: 04-06-2014 End: 07-09-2022 Cigarettes smoked current (pack per day) - Reported 0.5 [facility] Start: 04-06-2014 End: 10-22-2023 Tobacco use and exposure Smokeless tobacco non-user [facility] Work Phone: Start: 03-23-2021 End: 05-08-2024 Alcohol intake Current non-drinker of alcohol (finding) [facility] Start: 12-03-2019 End: 12-29-2021 History SDOH Alcohol Frequency 1 [facility] Start: 12-03-2019 History SDOH Alcohol Std Drinks 98 [facility] Start: 03-25-2019 History SDOH Social Connections Phone 5 [facility] Start: 12-03-2019 End: 12-29-2021 History SDOH Social Connections Moravian 2 [facility] Start: 03-25-2019 History SDOH Social Connections Living 8 [facility] Start: 03-25-2019 History SDOH Financial 4 [facility] Start: 03-25-2019 History SDOH Food Worry 3 [facility] Start: 03-24-2019 Education 14 [facility] Start: 04-25-2015 End: 01-29-2023 Tobacco Comment Both parents smoked in childhood home. Lived with smoker as adult. [facility] Start: 1960 Sex Assigned At Not on file [facility] Start: 02-21-2021 End: 06-14-2021 Exposure to SARS-CoV-2 (event) Not sure [facility] Start: 06-16-2021 End: 10-30-2021 Exposure to SARS-CoV-2 (event) Unable to assess [facility] Start: 12-02-2019 End: 07-09-2022 Social connection and isolation panel [facility] Frequency of Communication with Friends and Family Not on file [facility] How often to you hav e a drink containing alcohol? Never [facility] How hard is it for y ou to pay for the very basics like food, housing, medical care, and heating Not very hard [facility] Do you feel stress - tense, restless, nervous, or anxious, or unable to sleep at night because your mind is troubled all the time - these days [OSQ] Very much [facility] (I/We) worried whesydnee er (my/our) food would run out before (I/we) got money to buy more. Never true [facility] Work Phone: In the past 12 month s, was there a time when you were not able to pay the mortgage or rent on time? No [facility] Start: 12-08-2020 Gender identity Identifies as female gender (finding) [facility] Start: 12-08-2020 Sexual orientation Heterosexual (finding) [facility] Start: 11-14-2022 End: 06-04-2023 Tobacco smoking status NHIS Unknown if ever smoked [facility] Start: 06-08-2017 None [facility] Start: 05-14-2018 Spouse/ Significant Other;With Family [facility] Start: 07-27-2014 Cigarettes [facility] Start: 1960 Sex Assigned At Female [facility] The food that (I/we) bought just didn't last, and (I/we) didn't have money to get more. Sometimes true [facility] In the past 12 month s, was there a time when you were not able to pay the mortgage or rent on time? Yes [facility] Are you now , , , , never or living with a partner? Living with partner [facility] How hard is it for y ou to pay for the very basics like food, housing, medical care, and heating Hard [facility] Do you feel stress - tense, restless, nervous, or anxious, or unable to sleep at night because your mind is troubled all the time - these days [OSQ] To some extent [facility] (I/We) worried wheth er (my/our) food would run out before (I/we) got money to buy more. Often true [facility] Medical Equipment Procedure Code Equipment Code Equipment Original Text Equipment Identifier Dates [place] Corkscrew Fiberwire 5.5mm 2 Full Thread Peek 14.7mm Suture 2 4 - [id number] Start: 04-10-2017 [place] Corkscrew Fiberwire 5.5mm 2 Full Thread Peek 14.7mm Suture 2 4 - [id number] Start: 04-10-2017 [place] Bio-Swive lock 4.75mm 24.5mm Suture Self Punch Sterile Disposable - [id number] Start: 04-10-2017 [place] Bio-Swive lock 4.75mm 24.5mm Suture Self Punch Sterile Disposable - [id number] Start: 04-10-2017 System Speedbrid ge Fibertape Swivelock 5.5mm Biocomposite 24mm Endoscopic - [id number] Start: 01-01-2018 Graft Arthroflex Thk2.5-3.5mm Decellularized Dermis 50m56dv Soft Tissue - [id number] Start: 01-01-2018 [place] Suturetak Tigerwire 3mm 2 Fiberwire Biocomposite 14.5mm Suture - [id number] Start: 01-01-2018 [place] Suturetak Tigerwire 3mm 2 Fiberwire Biocomposite 14.5mm Suture - [id number] Start: 01-01-2018 Goals Date Patient Goal Desired Activity /State Personal health goal Comment on above: Formatting of this n ote might be different from the original. 3 Arthritis in her hands makes it hard to do things. Wants to go see a new baby girl in the family. Health makes it hard to go and do things. Personal health goal Comment on above: Formatting of this n ote might be different from the original. Patient has the following Congestive Heart Failure Goals: Two PCP Visits annually, Two Cardiology Visits annually, and Medication review by PCP or Pharmacy once a year CHF Education given and reviewed with patient -- Heart Failure Zones and CHF JEREMY education provided - Heart Failure CCF Patient will meet these goals by 08/31/23 (describe interventions done by PCC) Formatting of this n ote might be different from the original. Patient has the following Chronic Kidney Disease goals: Two PCP visits annually, Nephrology visit annually, and Renal panel twice annually Education provided and reviewed with patient - CKD JEREMY Education - CKD (ALL) Patient will meet these goals by: 08/31/23 (describe interventions done by PCC) Formatting of this n ote might be different from the original. Patient has the following Chronic Obstructive Pulmonary Disease goals: Two PCP visits annually and Pulmonology visit annually Education provided and reviewed with patient - COPD JEREMY Education - COPD About Patient will meet these goals by 08/31/23 (describe interventions done by PCC) Formatting of this n ote might be different from the original. Patient has the following general goals: Two PCP visits annually Patient Stated goal: I would like to get my arthritis controlled so I can be more active Patient will meet these goals by 08/31/23 (describe interventions done by PCC) Comment on above: Formatting of this n ote might be different from the original. Maintain Health Status Formatting of this n ote might be different from the original. Prevent complications Comment on above: Formatting of this n ote might be different from the original. 3-03-26 Arthritis in her hands makes it hard to do things. Wants to go see a new baby girl in the family. Health makes it hard to go and do things. Comment on above: Formatting of this n ote might be different from the original. Patient has the following Congestive Heart Failure Goals: Two PCP Visits annually, Two Cardiology Visits annually, and Medication review by PCP or Pharmacy once a year CHF Education given and reviewed with patient -- Heart Failure Zones and CHF JEREMY education provided - Heart Failure CCF Patient will meet these goals by 08/31/23 (describe interventions done by PCC) Comment on above: Formatting of this n ote might be different from the original. Patient has the following Chronic Kidney Disease goals: Two PCP visits annually, Nephrology visit annually, and Renal panel twice annually Education provided and reviewed with patient - CKD JEREMY Education - CKD (ALL) Patient will meet these goals by: 08/31/23 (describe interventions done by PCC) Comment on above: Formatting of this n ote might be different from the original. Patient has the following Chronic Obstructive Pulmonary Disease goals: Two PCP visits annually and Pulmonology visit annually Education provided and reviewed with patient - COPD JEREMY Education - COPD About Patient will meet these goals by 08/31/23 (describe interventions done by PCC) Comment on above: Formatting of this n ote might be different from the original. Patient has the following general goals: Two PCP visits annually Patient Stated goal: I would like to get my arthritis controlled so I can be more active Patient will meet these goals by 08/31/23 (describe interventions done by PCC) Functional Status Date Assessment Result Facility 05-03-2024 Functional status Ambulates [facility] Work Phone: 06-06-2023 Functional status Ambulates;Bath room Privilege [facility] Work Phone: 05-20-2023 Functional status Bathroom Privilege [facility] Work Phone: 03-29-2015 Are you deaf, or do you have serious difficulty hearing No 03/29/2015 3:28 PM Radha Valencia, RICARDO No [facility] 03-29-2015 Are you blind, or do you have serious difficulty seeing, even when wearing glasses No 03/29/2015 3:28 PM Radha Valencia, RICARDO No [facility] 03-29-2015 Do you have serious difficulty walking or climbing stairs No 03/29/2015 3:28 PM Radha Valencia, RICARDO No [facility] 03-29-2015 Do you have difficul ty dressing or bathing No 03/29/2015 3:28 PM Radha Valencia, RN No [facility] 03-29-2015 Because of a physica l, mental, or emotional condition, do you have difficulty doing errands alone such as visiting a physician's office or shopping No 03/29/2015 3:28 PM Radha Valencia RN No [facility] Mental Status Date Assessment Result Facility 05-03-2024 Cognitive function Voice/Name [facility] Work Phone: 05-02-2024 Cognitive function Cooperative;Talkative [facility] Work Phone: 06-06-2023 Cognitive function Voice/Name [facility] Work Phone: 05-20-2023 Cognitive function Voice/Name [facility] Work Phone: 03-29-2015 Because of a physica l, mental, or emotional condition, do you have serious difficulty concentrating, remembering, or making decisions No 03/29/2015 3:28 PM Radha Valencia RN No [facility] Clinical Notes 12-26-2015 to 08-05-2024 Telephone Encounter - Cesia Steele LPN - 07/28/2024 3:34 PM EDTTelephone Encounter - Cesia Steele LPN - 07/28/2024 3:34 PM EDTTelephone Encounter - Hilda Ibrahim RN - 07/24/2024 11:45 AM EDT Note Date & Type Note Facility 08-05-2024 Note [facility] Medical Records Department [address] [place] [id number] Discharge Summary 08/05/24 1252 MR#: [id number] Acct: [id number] Name: LEYDA LOPEZ Joann Rep #: [id number] : 1960 63 From: Trey Joe DO PCP: SHMUEL PAGAN Status:ADM IN Location: [place] [address] Providers Date of Admission: 07/26/24 Primary Care Physician: SHMUEL PAGAN Consultations 07/26/24 20:45 Consult: General Surgery Routine Consulting Provider: Kalyan Bass Reason for Consult: SBO EMERGENT Consult: No MD Notified: Yes Date Notified: 07/26/24 Time Notified: 18:26 Method of Notification: ED Physician Initiated 07/30/24 13:19 Consult: Infectious Disease Routine Consulting Provider: Merrick White Reason for Consult: gram positive bacteremia EMERGENT Consult: No MD Notified: Yes Date Notified: 07/30/24 Time Notified: 13:20 Method of Notification: Text 07/31/24 10:47 Consult: Cardiology Routine Consulting Provider: Sam Graves Reason for Consult: endocarditis EMERGENT Consult: No Notified: Yes Date Notified: 07/31/24 Time Notified: 10:47 Method of Notification: Answering Service Comments:: MRSA bacteremia with large LV mass seen on TTE Reason For Visit: SBO Diagnosis Discharge Diagnosis (1) Small bowel obstruction: Status: Acute Code(s): K56.609 - Unspecified intestinal obstruction, unspecified as to partial versus complete obstruction Plan: Symptoms began around the . CAT scan showed diffuse dilation of the small bowel with transition point within the distal duodenum. Since resolved. (2) MRSA bacteremia: Status: Acute Code(s): R78.81 - Bacteremia; B95.62 - Methicillin resistant Staphylococcus aureus infection as the cause of diseases classified elsewhere Plan: No clear criteria met for sepsis. Pt declined JENNIFER. TTE showed what was previously thought to be a vegetation, but cardiology feels that it is an enlarged papillar muscle and LV. No vegetation seen. No spinal lesions on CT lumbar and thoracic spines. BCx negative on thus far Pt to be discharged with 6 weeks of IV vancomycin (stop date 09/11). Pt will need to have [facility] to iniate the IV abx at home, but this cannot be arranged until 08/05 (3) Pleural effusion: Status: Acute Code(s): J90 - Pleural effusion, not elsewhere classified Plan: noted on CT. Appears rather small. Would recommend holding off on thoracentesis at this time as I feel the risks outweigh the benefits at this time. However, would still reimage in 4-6 weeks to see if changed. If worse, then would consider thoracentesis at that time. Plan Chronic conditions * Heart failure: HFpEF (EF between 55% from June 2017) currently compensated. * Hypertension: Stable. Olding off on lisinopril for this time as patient is n.p.o. * History of migraines: Supportive management at this time. No active migraine. Consider IV/SQ triptans if necessary. * Depression: Holding off on SSRIs for now. VTE prophylaxis with enoxaparin CODE STATUS: Addressed with the patient. Patient wishes to be full code. Medications at Discharge Home Medications albuterol sulfate 90 mcg/actuation aerosol inhaler (ProAir HFA) 2 puff inhalation Q4H PRN PRN Sob /Or Wheezing 07/26/14 nitroglycerin 0.4 mg sublingual tablet 0.4 mg sublingual PRN PRN CHEST PAIN 06/04/17 amitriptyline 100 mg tablet 150 mg PO QHS depresssion 10/10/22 meloxicam 7.5 mg tablet 15 mg PO DAILY pain 10/10/22 sumatriptan succinate 50 mg tablet 50 mg PO PRN PRN migraine headache 10/10/22 ondansetron 4 mg disintegrating tablet 4 mg PO Q8H PRN PRN Nausea #14 tabs 11/14/22 atorvastatin 40 mg tablet 40 mg PO QHS Cholesterol 05/11/23 buspirone 5 mg tablet 10 mg PO TID Anxiety 05/11/23 dexlansoprazole 60 mg capsule,biphase delayed release 60 mg PO DAILY GERD 05/11/23 escitalopram oxalate 20 mg tablet 20 mg PO DAILY depression 05/11/23 hydroxyzine HCl 50 mg tablet 50 mg PO TID PRN Anxiety 05/11/23 pregabalin 25 mg capsule 150 mg PO BID Nerve pain 05/11/23 tizanidine 4 mg tablet 4 mg PO Q8H PRN PRN muscle spasm 05/11/23 acetaminophen 325 mg tablet 1,000 mg (3.0769 x 325 mg) PO Q8H PRN PRN fever/pain 1-10 #0 tabs 05/20/23 lisinopril 40 mg tablet 40 mg PO DAILY blood pressure 06/04/23 potassium chloride 20 mEq tablet,extended release(part/cryst) 20 meq PO DAILYCM diuretic use #30 tabs 06/06/23 trazodone 50 mg tablet 50 mg PO QHS insomnia 05/01/24 albuterol sulfate 2.5 mg/3 mL (0.083 %) solution for nebulization 2.5 mg inhalation Q4H PRN PRN wheezing 07/26/24 buspirone 10 mg tablet 10 mg PO TID mental health 07/26/24 fluticasone 250 mcg-salmeterol 50 mcg/dose blistr powdr for inhalation 1 ea inhalation BID copd 07/26/24 furosemide 40 mg tablet 40 mg PO DAILY water pill 07/26/24 loperamide 2 mg capsule 2 mg PO TID PRN PRN diarrhea 07/26/24 vancomycin 500 mg/100 mL in dext (more content not included)... [facility] 07-28-2024 Telephone encount er Note Faxed last [address] scan of head, per Jeramy per request Attn: Radha Steele LPN July 28, 2024 3:34 PM [facility] 07-28-2024 Miscellaneous Notes Formattin g of this note might be different from the original. Faxed last [address] scan of head, per Jeramy per request Attn: Radha Steele LPN July 28, 2024 3:34 PM [facility] to request information to see if pt has had any testing or any upcoming testing for concerns regarding her cognitive thinking. Brionna states she faxed over a letter with a request for information to Dr. Palacio's office back on 06/08. No notes found in epic or anything under scanned documents. Asked that Brionna refax the information to me at [phone]. Did call the pt who confirms okay to speak with Jeramy and especially Gwen Duenas. Pt states she is seeing Gwen this afternoon. Attempted to contact Gwen back to share information with her but no answer so left VM to return the call. documented in this encounter [facility] 07-26-2024 Radiology Diagnostic study note [facility] Imaging Services [address] [place] [address] Abdomen Single View (Portable) MR#: [id number] Acct: [id number] Name: LEYDA LOPEZ Rep #: [id number] : 1960 F 63 From: Leslye Shields MD PCP: DON PAGANC Status: ADM IN Study:Abdomen Single View (Portable) Date of Exam: 07/26/24 Exam# [id number] Ordering Dr: Amy Jay PROCEDURE: ABDOMEN SINGLE VIEW (PORTABLE) 07/26/2024 REASON FOR EXAM: NG INSERTION TECHNIQUE: Single view abdomen. COMPARISON: Same day CT abdomen pelvis. FINDINGS: Support devices: Interval gastric tube placement with side hole and tip coursingbelow the level of the diaphragm. Visualization of the gastric tube is limited on lateral radiograph. Bowel gas: Persistent dilation of the visualized small bowel loops within the upper abdomen. Bones: There are degenerative changes of the spine. Other: Persistent bibasilar consolidations. RAD/Abdomen Single View (Portable) IMPRESSION: Interval gastric tube placement as described. Reading Location: [id number] CC: CARPET BINDER-C DALI RICE; GARY Rojas ~ Regulatory Intern: Signed [facility] 07-26-2024 History and physi oralia note [facility] 07-26-2024 Radiology Diagnostic study note [facility] Imaging Services [address] [place] [address] Abdomen/Pelvis W IV Cont ONLY MR#: [id number] Acct: [id number] Name: LEYDA LOPEZ Rep #: [id number] : 1960 F 63 From: Leslye Shields MD PCP: DALI RICE CARPET BINDER-C Status: REG ER Study:Abdomen/Pelvis W IV Cont ONLY Date of E xam: 07/26/24 Exam# [id number] Ordering Dr: Amy Jay PROCEDURE: ABDOMEN/PELVIS W IV CONT ONLY N/A REASON FOR EXAM: ABDOMINAL PAIN TECHNIQUE: Abdomen and pelvis CT with intravenous contrast. Coronal and Sagittal reconstruction series were provided. PATIENT PREPARATION: Per protocol ORAL CONTRAST TYPE: None. CONTRAST: Isovue 370 VOLUME: 100 mL One or more dose reduction techniques were used (e.g., Automated exposure control, adjustment of the mA and/or kV according to patient size, use of iterative reconstruction technique. RADIATION DOSE SUMMARY: CTDlvol: 25 mGy DLP: 710 mGycm COMPARISON: CT chest 05/17/2023. FINDINGS: Lung bases: Unchanged bibasilar consolidations. The heart is normal size. Liver: The liver is normal in size with diffuse hepatic steatosis. The major portal veins are patent. No biliary ductal dilation. Gallbladder: No radiopaque stones within the gallbladder. Spleen: Unremarkable. Pancreas: Atrophic. Adrenals: No adrenal mass. Kidneys: Mild symmetric renal cortical scarring. No hydronephrosis or nephrolithiasis. Bladder: Distended and unremarkable. Reproductive Organs: Prior hysterectomy. Adnexal regions are unremarkable. Bowel: Diffuse dilation of the small bowel loops measuring up to 3.8 cm, with the transition point within the distal duodenum within the left upper quadrant (series 2, image 47 and coronal image 57). No ascites or pneumoperitoneum. Normal appendix. Lymph nodes: Prominent retroperitoneal lymph nodes, likely reactive. No suspicious lymphadenopathy. Vasculature: Moderate mixed plaque of the aortoiliac vessels. Bones: Thoracolumbar spondylosis with mild multilevel chronic vertebral body height loss of the lower thoracic spine. Chronic fracture deformity of the left inferior pubic ramus. CT/Abdomen/Pelvis W IV Cont ONLY IMPRESSION: 1. Diffuse dilation of the small bowel, with the transition point within the distal duodenum within the left upper quadrant. No pneumoperitoneum. 2. Diffuse hepatic steatosis. 3. Stable bibasilar consolidations. Reading Location: [id number] CC: SHMUEL RICE; GARY Rojas ~ Regulatory Intern: Signed [facility] 07-24-2024 Telephone encounter Note Brionna Duenas psychologist with [employer] calling to request information to see if pt has had any testing or any upcoming testing for concerns regarding her cognitive thinking. Brionna states she faxed over a letter with a request for information to Dr. Palacio's office back on 06/08. No notes found in epic or anything under scanned documents. Asked that Brionna refax the information to me at [phone]. Did call the pt who confirms okay to speak with AbelardoAracely and especially Gwen Duenas. Pt states she is seeing Gwen this afternoon. Attempted to contact Gwen back to share information with her but no answer so left VM to return the call. [facility] 07-17-2024 Telephone encounter Note The following approved medication requests have been transmitted electronically. Requested Prescriptions Signed Prescriptions Disp Refills SUMAtriptan (IMITREX) 50 mg tablet 9 tablet 5 Sig: Take 1 tablet by mouth as needed for migraine headache (see administration instructions). START AT ONSET OF HEADACHE. MAY REPEAT DOSE AFTER 2 HOURS. Authorizing Provider: VELVET PALACIO MA [facility] 07-17-2024 Miscellaneous Notes The following approved medication requests have been transmitted electronically. Requested Prescriptions Signed Prescriptions Disp Refills SUMAtriptan (IMITREX) 50 mg tablet 9 tablet 5 Sig: Take 1 tablet by mouth as needed for migraine headache (see administration instructions). START AT ONSET OF HEADACHE. MAY REPEAT DOSE AFTER 2 HOURS. Authorizing Provider: VELVET PALACIO MA The patient has been identified by name and date of : Yes Caregiver verified no other encounters exist for this prescription request: Yes Caregiver confirmed with patient/requestor that no other refills are due, in the near future, with this provider at this time: Yes The last office visit in the department: 06/29/2024 Does the patient have a future office visit with this provider/department: 08/10/2024 Requested Prescriptions Pending Prescriptions Disp Refills SUMAtriptan (IMITREX) 50 mg tablet 9 tablet 5 Sig: Take 1 tablet by mouth as needed for migraine headache (see administration instructions). START AT ONSET OF HEADACHE. MAY REPEAT DOSE AFTER 2 HOURS. Patient is completely out of medication and requesting refill. Called [facility] Spoke to Alicia who reports that current refill from 06/01/2024 is out of refills. Medication was filled on 06/03, 06/07,06/17,06/27, and 07/03. Ca Valenzuela RN July 17, 2024 3:53 PM documented in this encounter [facility] 07-17-2024 Telephone encounter Note The patient has been identified by name and date of : Yes Caregiver verified no other encounters exist for this prescription request: Yes Caregiver confirmed with patient/requestor that no other refills are due, in the near future, with this provider at this time: Yes The last office visit in the department: 06/29/2024 Does the patient have a future office visit with this provider/department: 08/10/2024 Requested Prescriptions Pending Prescriptions Disp Refills SUMAtriptan (IMITREX) 50 mg tablet 9 tablet 5 Sig: Take 1 tablet by mouth as needed for migraine headache (see administration instructions). START AT ONSET OF HEADACHE. MAY REPEAT DOSE AFTER 2 HOURS. Patient is completely out of medication and requesting refill. Called [facility]ynep Spoke to Alicia who reports that current refill from 06/01/2024 is out of refills. Medication was filled on 06/03, 06/07,06/17,06/27, and 07/03. Ca Valenzuela RN July 17, 2024 3:53 PM [facility] 07-09-2024 History of Present illness Narrative Radiology Service Progress Note PATIENT NAME: Leyda Lopez DATE OF SERVICE: July 09, 2024 TIME: 2:50 PM PATIENT IDENTITY VERIFICATION COMPLETED USING TWO (2) IDENTIFIERS: Name and Date of confirmed by patient verbally. FALL SCREENING: Has the patient had 2 falls in the last year or 1 fall with injury or currently using an Ambulatory Assistive Device (Walker, Cane, Wheelchair, Crutches, etc.)? No PATIENT GENDER DATA: Assigned female at . status: : No status: NO. PATIENT RELEVANT IMPLANT DATA REVIEWED: Yes PATIENT PRESENTS WITH AN IMPLANTABLE OR ATTACHED RETAIL CASHIER: No RADIOLOGY DEPARTMENT: CT; Exam(s) Completed: Brain PERIPHERAL IV DATA: Not applicable SIGNED BY: RT Bhanu(Velia) July 09, 2024 2:50 PM documented in this encounter [facility] 07-09-2024 Note HNO ID: [id number] Author: AZEB PAEZ RT(R) Service: ? Author Type: Rn Perinatal Type: Progress Notes Filed: 07/09/2024 14:51 Note Text: Radiology Service Progress Note PATIENT NAME: Leyda Lopez DATE OF SERVICE: July 09, 2024 TIME: 2:50 PM PATIENT IDENTITY VERIFICATION COMPLETED USING TWO (2) IDENTIFIERS: Name and Date of confirmed by patient verbally. FALL SCREENING: Has the patient had 2 falls in the last year or 1 fall with injury or currently using an Ambulatory Assistive Device (Walker, Cane, Wheelchair, Crutches, etc.)? No PATIENT GENDER DATA: Assigned female at . status: : No status: NO. PATIENT RELEVANT IMPLANT DATA REVIEWED: Yes PATIENT PRESENTS WITH AN IMPLANTABLE OR ATTACHED RETAIL CASHIER: No RADIOLOGY DEPARTMENT: CT; Exam(s) Completed: Brain PERIPHERAL IV DATA: Not applicable SIGNED BY: RT Bhanu(Velia) July 09, 2024 2:50 PM [facility] 07-08-2024 Telephone encounter Note Sent with specifications of what is needed Dali Rice APRN.CNP [facility] 07-08-2024 Miscellaneous Notes Sent with specifications of what is needed Dali Rice APRN.MAIRETTA Pt calls to report she does not need the whole nebulizer kit that was ordered. Pt reports she only needs the mask and the little cup. Pt is asking for new order to go to [facility] instead of [facility]. Suellen Zaragoza LPN documented in this encounter [facility] 07-07-2024 Telephone encounter Note Patient calls to check on request. Notified it was pending provider review. Patient requests this be taken care of ESTHELA as she is completely out and has 6 other prescriptions to quill picking machine operator and doesn't want to make multiple trips. Ca Valenzuela RN [facility] 07-07-2024 Miscellaneous Notes Patient calls to check on request. Notified it was pending provider review. Patient requests this be taken care of ESTHELA as she is completely out and has 6 other prescriptions to quill picking machine operator and doesn't want to make multiple trips. Ca Valenzuela RN The patient has been identified by name and date of : Yes Caregiver verified no other encounters exist for this prescription request: Yes Caregiver confirmed with patient/requestor that no other refills are due, in the near future, with this provider at this time: Yes The last office visit in the department: 06/29/2024 Does the patient have a future office visit with this provider/department: Yes 08/10/2024 Requested Prescriptions Pending Prescriptions Disp Refills pregabalin (LYRICA) 150 mg capsule 60 capsule 2 Sig: Take 1 capsule by mouth two times a day for 90 days. Kellen Alexandra LPN July 06, 2024 4:12 PM documented in this encounter [facility] 07-06-2024 Telephone encounter Note Pt calls to report she does not need the whole nebulizer kit that was ordered. Pt reports she only needs the mask and the little cup. Pt is asking for new order to go to [facility] instead of [facility]. Suellen Zaragoza LPN [facility] 07-06-2024 Telephone encounter Note The patient has been identified by name and date of : Yes Caregiver verified no other encounters exist for this prescription request: Yes Caregiver confirmed with patient/requestor that no other refills are due, in the near future, with this provider at this time: Yes The last office visit in the department: 06/29/2024 Does the patient have a future office visit with this provider/department: Yes 08/10/2024 Requested Prescriptions Pending Prescriptions Disp Refills pregabalin (LYRICA) 150 mg capsule 60 capsule 2 Sig: Take 1 capsule by mouth two times a day for 90 days. Kellen Alexandra LPN July 06, 2024 4:12 PM [facility] 07-02-2024 Telephone encounter Note Patient calls and notified of results and providers instructions. Patient verbalizes understanding. Offered to schedule lab appt. Patient uncertain when she will be able to come in so will walk in. Ca Valenzuela RN [facility] 07-02-2024 Miscellaneous Notes Patient calls and notified of results and providers instructions. Patient verbalizes understanding. Offered to schedule lab appt. Patient uncertain when she will be able to come in so will walk in. Ca Valenzuela RN Left message for return call. Patient is anemic. I would like to do further blood work to evaluate the cause along with a stool sample to look for hidden blood. The rest of blood work can be discussed at her follow up. Thank you Dali Rice APRN.CNP documented in this encounter [facility] 07-01-2024 Telephone encounter Note See Results follow up from today Dali Rice APRN.CNP [facility] 07-01-2024 Miscellaneous Notes See Results follow up from today Dali Rice APRN.CNP Patient calling asking for her lab results, concerned since can she on her my chart says abnormal results. Aware computer shows 5 tests are still in process not completed as yet, may be tomorrow before results are all back. Aware CARPET BINDER is out of the office today. Please advise documented in this encounter [facility] 07-01-2024 Telephone encounter Note Left message for return call. [facility] 07-01-2024 Telephone encounter Note Patient is anemic. I would like to do further blood work to evaluate the cause along with a stool sample to look for hidden blood. The rest of blood work can be discussed at her follow up. Thank you Dali Rice APRN.CNP [facility] 06-30-2024 Telephone encounter Note Patient calling asking for her lab results, concerned since can she on her my chart says abnormal results. Aware computer shows 5 tests are still in process not completed as yet, may be tomorrow before results are all back. Aware CARPET BINDER is out of the office today. Please advise [facility] 06-29-2024 Instructions Dali Rice APRN.CNP - 06/29/2024 3:33 PM EDT Your blood work was drawn today; we will contact you once the results are available. A CT scan of your brain has been ordered to evaluate your memory concerns. A referral to neurology has been initiated for a comprehensive cognitive evaluation; please expect a call to schedule this appointment. You have a follow-up appointment scheduled in 3 months to review your progress and discuss next steps. documented in this encounter [facility] 06-29-2024 Note HNO ID: [id number] Author: DALI RICE APRN.CNP Service: ? Author Type: Nurse Practitioner Type: Progress Notes Filed: 06/29/2024 17:14 Note Text: CC: Patient presents with: Recheck: 3 month follow up HPI Leyda Lopez is a 63 year old female who presents today for memory concerns. Patient is seeing psychologist post psych hospitalization for suicidal ideations and feels she has underlying dementia. Does have history of marijuana and small amount of meth use but denies usage for months. Did lose custody of her adult daughter last year and has struggled with depression since this occurred. Also reports her corporate compliance officer wants to put her in a fci because she can't care for herself Lives with her boyfriend who at last visit stated, he has noticed her memory issues for years but states today that it comes and goes. Recording using [employer] software for draft documentation of the visit was discussed with the patient/authorized traffic workforce representative; all questions welcomed and answered. Patient/authorized traffic workforce representative agreed to proceed Memory Changes: - Onset over the past 1.5 years. - Boyfriend has noticed memory issues for a while but did not initially bring it up. - Some days are better than others; recent visit noted as worse than today. - Recent stress from geological technical officer threatening fci placement due to perceived inability to care for herself. - Denies recent head injuries, syncope, fever, chills, weakness, numbness, new chest pain, or dyspnea. - No new or abnormal headaches beyond chronic migraines. - prior to losing custody of daughter was not consistent with follow up care for her chronic conditions. - did have recent bout of pneumonia and on continuous oxygen but recent CXR without infection. - was also seen a week ago for her breathing and blood work for memory issues ordered so they could be reviewed at this visit but was not drawn as ordered until right before this visit. In looking back I am not sure she ever established with pulmonology as previously ordered last year either. REVIEW OF SYSTEMS See HPI PAST MEDICAL HISTORY Diagnosis Date Abdominal pain, right upper quadrant ADD (attention deficit disorder) Seeing psychiatry Anemia, unspecified Asthma Back pain chronic-Seeing Dr. Blankenship Bipolar affective disorder ([facility]) Chronic right shoulder pain Seeing Dr. Molina Closed dislocation of tarsometatarsal (joint) 01/18/2011 COPD (chronic obstructive pulmonary disease) ([facility]) Depressive disorder, not elsewhere classified 03/22/2005 Disorder of bone and cartilage, unspecified 02/09/2008 Distal radius fracture 01/05/2011 Dysuria Fibromyalgia GERD (gastroesophageal reflux disease) IBS (irritable bowel syndrome) Mitral regurgitation Severe Neck pain chronic-takes vicodin for this NSTEMI (non-ST elevated myocardial infarction) ([facility]) Seeing Dr. Hutton Other and unspecified hyperlipidemia Panic disorder without agoraphobia 03/22/2005 PMR (polymyalgia rheumatica) [facility] [facility] RA (rheumatoid arthritis) ([facility]) Unspecified essential hypertension 03/22/2005 PAST SURGICAL HISTORY Procedure Laterality Date COLONOSCOPY FLX DX W/COLLJ SPEC WHEN PFRMD 01/23/08 Normal COLONOSCOPY FLX DX W/COLLJ SPEC WHEN PFRMD 01/09/2012 Colonoscopy DIAGNOSTIC ARTHROSCOPY SHOULDER +- SYNOVIAL BX Right 04/10/2017 Right shoulder arthroscopy with open SAD and rotator cuff repair EGD TRANSORAL BIOPSY SINGLE/MULTIPLE 01/23/08 Minimal antral gastritis HEART CATHETERIZATION 01/2016 no intervention Partial hysterectomy still has ovaries PAST SURGICAL HISTORY OF 02/2016 total teeth extraction RMVL LENS MATERIAL PHACOFRAGMENTATION ASPIR 12/2010 Cataract Extraction RPR UMBILICAL HRNA 5 YRS/> REDUCIBLE 12/04/2016 Hernia repair, umbilical >5yr SURGICAL ARTHROSCOPY SHOULDER W/ROTATOR CUFF RPR Right 01/01/2018 Right shoulder arthroscopy SAD, Acromioplasty, debridement glenohumeral joint, biceps tenotomy, RCR, superior capsular reconstruction ALLERGIES Amlodipine, Ativan [Lorazepam], Baclofen, Methotrexate, Nadolol, Nexium [Esomeprazole Magnesium], Penicillin G, and Propranolol MEDICATIONS hydrOXYzine HCl (ATARAX) 50 mg tablet Take 1 tablet by mouth every 8 hours as needed for anxiety. ipratropium (ATROVENT) 0.02 % nebulizer solution Use 2.5 mL via nebulizer four times a day as needed for wheezing/shortness of breath. Use over 5-15minutes. Dx:J45.40 Nebulizer Accessories kit 1 each once daily. albuterol (PROVENTIL) 2.5 mg /3 mL (0.083 %) nebulizer solution Use 3 mL via nebulizer every 4 hours as needed for wheezing/shortness of breath. Nebulizer and Compressor For Neb 1 each every 4 hours as needed. busPIRone (BUSPAR) 10 mg tablet Take 1 tablet by mouth three times a day. loperamide (IMODIUM) 2 mg cap(s) Take 1 capsule by mouth three times a day as needed. meloxicam (MOBIC) 15 mg tablet Take 1 tablet by mouth once d (more content not included)... [facility] 06-29-2024 History of Present illness Narrative CC: Patient presents with: Recheck: 3 month follow up HPI Leyda Lopez is a 63 year old female who presents today for memory concerns. Patient is seeing psychologist post psych hospitalization for suicidal ideations and feels she has underlying dementia. Does have history of marijuana and small amount of meth use but denies usage for months. Did lose custody of her adult daughter last year and has struggled with depression since this occurred. Also reports her corporate compliance officer wants to put her in a fci because she can't care for herself Lives with her boyfriend who at last visit stated, he has noticed her memory issues for years but states today that it comes and goes. Recording using [employer] software for draft documentation of the visit was discussed with the patient/authorized traffic workforce representative; all questions welcomed and answered. Patient/authorized traffic workforce representative agreed to proceed Memory Changes: - Onset over the past 1.5 years. - Boyfriend has noticed memory issues for a while but did not initially bring it up. - Some days are better than others; recent visit noted as worse than today. - Recent stress from geological technical officer threatening fci placement due to perceived inability to care for herself. - Denies recent head injuries, syncope, fever, chills, weakness, numbness, new chest pain, or dyspnea. - No new or abnormal headaches beyond chronic migraines. - prior to losing custody of daughter was not consistent with follow up care for her chronic conditions. - did have recent bout of pneumonia and on continuous oxygen but recent CXR without infection. - was also seen a week ago for her breathing and blood work for memory issues ordered so they could be reviewed at this visit but was not drawn as ordered until right before this visit. In looking back I am not sure she ever established with pulmonology as previously ordered last year either. REVIEW OF SYSTEMS See HPI PAST MEDICAL HISTORY Diagnosis Date Abdominal pain, right upper quadrant ADD (attention deficit disorder) Seeing psychiatry Anemia, unspecified Asthma Back pain chronic-Seeing Dr. Blankenship Bipolar affective disorder ([facility]) Chronic right shoulder pain Seeing Dr. Molina Closed dislocation of tarsometatarsal (joint) 01/18/2011 COPD (chronic obstructive pulmonary disease) ([facility]) Depressive disorder, not elsewhere classified 03/22/2005 Disorder of bone and cartilage, unspecified 02/09/2008 Distal radius fracture 01/05/2011 Dysuria Fibromyalgia GERD (gastroesophageal reflux disease) IBS (irritable bowel syndrome) Mitral regurgitation Severe Neck pain chronic-takes vicodin for this NSTEMI (non-ST elevated myocardial infarction) ([facility]) Seeing Dr. Hutton Other and unspecified hyperlipidemia Panic disorder without agoraphobia 03/22/2005 PMR (polymyalgia rheumatica) (HCC) RA (rheumatoid arthritis) (HCC) Unspecified essential hypertension 03/22/2005 PAST SURGICAL HISTORY Procedure Laterality Date COLONOSCOPY FLX DX W/COLLJ SPEC WHEN PFRMD 01/23/08 Normal COLONOSCOPY FLX DX W/COLLJ SPEC WHEN PFRMD 01/09/2012 Colonoscopy DIAGNOSTIC ARTHROSCOPY SHOULDER +- SYNOVIAL BX Right 04/10/2017 Right shoulder arthroscopy with open SAD and rotator cuff repair EGD TRANSORAL BIOPSY SINGLE/MULTIPLE 01/23/08 Minimal antral gastritis HEART CATHETERIZATION 01/2016 no intervention Partial hysterectomy still has ovaries PAST SURGICAL HISTORY OF 02/2016 total teeth extraction RMVL LENS MATERIAL PHACOFRAGMENTATION ASPIR 12/2010 Cataract Extraction RPR UMBILICAL HRNA 5 YRS/> REDUCIBLE 12/04/2016 Hernia repair, umbilical >5yr SURGICAL ARTHROSCOPY SHOULDER W/ROTATOR CUFF RPR Right 01/01/2018 Right shoulder arthroscopy SAD, Acromioplasty, debridement glenohumeral joint, biceps tenotomy, RCR, superior capsular reconstruction ALLERGIES Amlodipine, Ativan [Lorazepam], Baclofen, Methotrexate, Nadolol, Nexium [Esomeprazole Magnesium], Penicillin G, and Propranolol MEDICATIONS hydrOXYzine HCl (ATARAX) 50 mg tablet Take 1 tablet by mouth every 8 hours as needed for anxiety. ipratropium (ATROVENT) 0.02 % nebulizer solution Use 2.5 mL via nebulizer four times a day as needed for wheezing/shortness of breath. Use over 5-15minutes. Dx:J45.40 Nebulizer Accessories kit 1 each once daily. albuterol (PROVENTIL) 2.5 mg /3 mL (0.083 %) nebulizer solution Use 3 mL via nebulizer every 4 hours as needed for wheezing/shortness of breath. Nebulizer and Compressor For Neb 1 each every 4 hours as needed. busPIRone (BUSPAR) 10 mg tablet Take 1 tablet by mouth three times a day. loperamide (IMODIUM) 2 mg cap(s) Take 1 capsule by mouth three times a day as needed. meloxicam (MOBIC) 15 mg tablet Take 1 tablet by mouth once daily. SUMAtriptan (IMITREX) 50 mg tablet Take 1 tablet by mouth as needed for migraine headache (see administration instructions). START AT ONSET OF HEADACHE. MAY REPEAT DOSE AFTER 2 HOURS. traZODone (DESYREL) 50 mg tablet Take 1 tablet by mouth daily at bedtime. Blood Pressure Monitor 1 Each as needed. OXYGEN, HOME THERAPY, 2 L/min by Nasal Cannula route as directed. At night & 5 L/min when mobile predniSONE (DELTASONE) 20 mg tablet Please take the pill for 7 days followed by taking half the pill for another 7 days and stop. tiZANidine (ZANAFLEX) 4 mg tablet Take 1 tablet by mouth every 8 hours as needed. furosemide (LASIX) 40 mg tablet Take 1 tablet by mouth once daily. lisinopril (ZESTRIL) 40 mg tablet Take 1 tablet by mouth once daily. escitalopram oxalate (LEXAPRO) 20 mg tablet Take 1 tablet by mouth once daily. atorvastatin (LIPITOR) 40 mg tablet TAKE ONE TABLET BY MOUTH DAILY AT 9PM AT BEDTIME amitriptyline 150 mg tablet Take 1 tablet by mouth daily at bedtime. pregabalin (LYRICA) 150 mg capsule Take 1 capsule by mouth two times a day for 90 days. ondansetron orally disintegrating (ZOFRAN ODT) 4 mg disintegrating tablet Take 1 tablet by mouth every 8 hours as needed. fluticasone-salmeterol (ADVAIR, WIXELA) 250-50 mcg/dose inhaler INHALE 1 PUFF BY MOUTH DIRECTED TWICE DAILY potassium chloride ER (KLOR-CON) 20 mEq tablet Take 1 tablet by mouth once daily. nitroglycerin sublingual (NITROQUICK) 0.4 mg SL tablet Dissolve 0.4 mg under the tongue every 5 minutes as needed for chest pain. acetaminophen 325 mg cap Take by mouth. Dexlansoprazole (DEXILANT) 60 mg CpDM TAKE ONE CAPSULE BY MOUTH DAILY AT 9AM hyoscyamine sublingual (LEVSIN SL) 0.125 mg Dissolve 1 tablet under the tongue three times daily as needed. Cholecalciferol, Vitamin D3, 2,000 unit tab Take 2 tablets by mouth once daily. FAMILY HISTORY Problem Relation Age of Onset COPD Mother Breast Cancer Mother Heart Father DC COPD Father other (Pulmonary fibrosis) Father Social History Tobacco Use Smoking status: Former Current packs/day: 0.00 Average packs/day: 0.5 packs/day for 20.0 years (10.0 ttl pk-yrs) Types: Cigarettes Start date: 1973 Quit date: 03/04/1989 Years since quittin.3 Smokeless tobacco: Never Tobacco comments: Both parents smoked in childhood home. Lived with smoker as adult. Vaping Use Vaping status: Never Used Substance Use Topics Alcohol use: No Drug use: No PHYSICAL EXAM BP 116/72 Pulse 72 Resp 16 Wt 65.8 kg (145 lb) SpO2 98% BMI 30.83 kg/m General Appearance: well appearing, in no acute distress, alert, Eyes: PERRLA, conjunctiva pink and moist, no icterus, sclera white, non-injected. Has trouble with eye contact prison with makes checking EOMs difficult Lungs: Lungs clear to auscultation. No wheezing, rhonchi, rales. Heart: RRR without murmur, gallop, or rubs. No ectopy Neurological: Gait normal. Reflexes normal and symmetric. Sensation intact., Negative findings: speech normal for patient, mental status intact, muscle tone normal, muscle strength normal, finger to nose normal 06/29/2024 [place] MMSE O[address] 5 Registration 3 ATTENTION & CALCULATION 5 Recall 3 Language 2 Repeat 1 FOLLOW 3-STEP COMMAND 3 Read & Obey 1 WRITE A SENTENCE 1 Copy Pentagons 0 Score: 29 Health maintenance reviewed with patient: Alpha-1 Antitrypsin Deficiency Screening Never done Shingrix Vaccine(1 of 2) Never done Pneumococcal Vaccine: 50+(2 of 2 - PCV) due on 01/28/2013 Mammogram Screening due on 08/06/2017 RSV Vaccine(1 - Risk 60-74 years 1-dose series) Never done Colorectal Cancer Screening due on 01/08/2022 Serum Creatinine due on 12/25/2024 Annual PCP Team Chronic Disease Visit due on 06/19/2025 BP Controlled (<130/80) due on 06/19/2025 Diabetes Screening due on 12/25/2026 Lipid Screening due on 02/12/2028 DTaP,Tdap,Td Vaccine(3 - Td or Tdap) due on 07/22/2028 Spirometry Completed Influenza Vaccine Completed Hepatitis C Screening Completed HIV Screening Completed Cervical Cancer Screening Discontinued Covid-19 Vaccine Discontinued DATA REVIEWED: not resulted to be reviewed for visit. Assessment/Plan 1. Memory change (R41.3) - Noted memory changes over the last year and a half, with variable presentation; recent evaluation by psychologist at [address] [place] [address] suggested dementia. Per patient her corporate compliance officer has concerns as well. Boyfriend in office and one visit with concerns and today reports it comes and goes. Previous blood work not drawn to review in visit. - has history of migraines and reports light sensitivity causing her to not keep eye contact long and keep head down so difficult to fully evaluate EOMs. Needs fully assessed by neurology. - Completed Mini-Mental State Examination (MMSE) with a score of 29/30. - Ordered CT of the brain to assess for structural abnormalities. - Referred to general neurology for comprehensive memory and cognition evaluation. - Follow-up in 6 weeks to review progress and any additional findings. 2. Light sensitivity (R68.89) - No new or worsening symptoms reported. See above 3. Migraine without aura, not intractable, without status migrainosus (G43.009) - Chronic condition; no recent exacerbations reported. 4. On home oxygen therapy (Z99.81) - Chest X-ray reviewed; no signs of infection or acute issues. - Continue current oxygen therapy regimen. - unsure if she established with pulmonology previously as ordered so consult placed again and patient called as this was realized after appointment 5. Uncomplicated asthma, unspecified asthma severity, unspecified whether persistent (HCC) (J45.909) - pt with issues post recent infection of pneumonia but at visit today stable on home O2 denying concerns. 6. Marijuana use (F12.90) - Patient reports medical marijuana card but unable to use this since she is on probation 7. History of substance use (Z87.898) - denies recent usage Prescription instructions reviewed with patient as applicable. Potential red flag symptoms discussed with the patient. Reviewed appropriate action plan to take if red flag symptoms occur. Patient agreeable to treatment plan. Dali Rice APRN.CNP documented in this encounter [facility] 06-19-2024 History of Present illness Narrative Radiology Service Progress Note PATIENT NAME: Leyda Lopez DATE OF SERVICE: June 19, 2024 TIME: 10:45 AM PATIENT IDENTITY VERIFICATION COMPLETED USING TWO (2) IDENTIFIERS: Name and Date of confirmed by patient verbally. FALL SCREENING: Has the patient had 2 falls in the last year or 1 fall with injury or currently using an Ambulatory Assistive Device (Walker, Cane, Wheelchair, Crutches, etc.)? No PATIENT GENDER DATA: Assigned female at . status: : No status: NO. PATIENT RELEVANT IMPLANT DATA REVIEWED: Not Applicable PATIENT PRESENTS WITH AN IMPLANTABLE OR ATTACHED RETAIL CASHIER: No RADIOLOGY DEPARTMENT: General X-ray: Exam(s) Completed: Chest X-Ray PERIPHERAL IV DATA: Not applicable SIGNED BY: Desiree Prince June 19, 2024 10:45 AM documented in this encounter [facility] 06-19-2024 Note HNO ID: [id number] Author: YUMIKO TONEY Tech Service: ? Author Type: Technologist Type: Progress Notes Filed: 06/19/2024 10:59 Note Text: Radiology Service Progress Note PATIENT NAME: Leyda Lopez DATE OF SERVICE: June 19, 2024 TIME: 10:45 AM PATIENT IDENTITY VERIFICATION COMPLETED USING TWO (2) IDENTIFIERS: Name and Date of confirmed by patient verbally. FALL SCREENING: Has the patient had 2 falls in the last year or 1 fall with injury or currently using an Ambulatory Assistive Device (Walker, Cane, Wheelchair, Crutches, etc.)? No PATIENT GENDER DATA: Assigned female at . status: : No status: NO. PATIENT RELEVANT IMPLANT DATA REVIEWED: Not Applicable PATIENT PRESENTS WITH AN IMPLANTABLE OR ATTACHED RETAIL CASHIER: No RADIOLOGY DEPARTMENT: General X-ray: Exam(s) Completed: Chest X-Ray PERIPHERAL IV DATA: Not applicable SIGNED BY: Desiree Prince June 19, 2024 10:45 AM [facility] 06-19-2024 Dali Asher APRN.[facility] - 06/19/2024 10:34 AM EDT A nebulizer kit for albuterol has been ordered and will be sent to [facility]. Use this treatment as directed when you experience shortness of breath. Complete the chest x-ray, blood work, and urine tests as arranged today to help evaluate your breathing and overall condition. Return for your follow-up appointment next week so we can review your test results and assess your progress. If you notice any worsening in your breathing, please go to the emergency room immediately. documented in this encounter [facility] 06-19-2024 Note HNO ID: [id number] Author: DALI RICE APRN.[place] Service: ? Author Type: Nurse Practitioner Type: Progress Notes Filed: 06/19/2024 11:25 Note Text: CC: Patient presents with: Recheck: Medication follow up HPI Leyda Lopez is a 63 year old female who presents today for COPD concerns. Recording using [employer] software for draft documentation of the visit was discussed with the patient/authorized traffic workforce representative; all questions welcomed and answered. Patient/authorized traffic workforce representative agreed to proceed COPD: - Hospitalized for COPD exacerbation approximately one month ago; treated with azithromycin and prednisone. Alvarado better when on prednisone and would like to be on it again. - Suspected pneumonia during hospitalization, but not confirmed. - On home oxygen therapy: 2 L at night, 3-4 L during the day. - Reports improvement in activity levels; SpO2 around 94% on 3-4 L O2. - Persistent dyspnea, especially when climbing stairs. - Recent increase in dyspnea and wheezing over the past couple of weeks. - Unable to use albuterol inhaler due to difficulty with administration; prefers nebulizer treatments. -Never picked up nebulizer as ordered by hospital - Denies increased use of albuterol inhaler during recent exacerbation. - Recent episodes of diaphoresis and feeling unwell, particularly last night. Memory Changes: - at end of appointment this was brought up because patient was very poor historian on her concerns and boyfriend was trying to explain what patient needed. Has appointment to discuss this further as her psychiatrist called with concerns of this recently as well. Currently denies meth usage and states she is just under a lot of stress and is depressed due to her adult disabled daughter being removed from her home and resulting financial issues. - Noted memory changes over the past year and a half. Per boyfriend he has noticed this for a while but never brought it up. - No recent brain imaging performed. - No scheduled neurology appointment. REVIEW OF SYSTEMS See HPI PAST MEDICAL HISTORY Diagnosis Date Abdominal pain, right upper quadrant ADD (attention deficit disorder) Seeing psychiatry Anemia, unspecified Asthma Back pain chronic-Seeing Dr. Blankenship Bipolar affective disorder ([facility]) Chronic right shoulder pain Seeing Dr. Molina Closed dislocation of tarsometatarsal (joint) 01/18/2011 COPD (chronic obstructive pulmonary disease) ([facility]) Depressive disorder, not elsewhere classified 03/22/2005 Disorder of bone and cartilage, unspecified 02/09/2008 Distal radius fracture 01/05/2011 Dysuria Fibromyalgia GERD (gastroesophageal reflux disease) IBS (irritable bowel syndrome) Mitral regurgitation Severe Neck pain chronic-takes vicodin for this NSTEMI (non-ST elevated myocardial infarction) ([facility]) Seeing Dr. Hutton Other and unspecified hyperlipidemia Panic disorder without agoraphobia 03/22/2005 PMR (polymyalgia rheumatica) ([facility]) RA (rheumatoid arthritis) ([facility]) Unspecified essential hypertension 03/22/2005 PAST SURGICAL HISTORY Procedure Laterality Date COLONOSCOPY FLX DX W/COLLJ SPEC WHEN PFRMD 01/23/08 Normal COLONOSCOPY FLX DX W/COLLJ SPEC WHEN PFRMD 01/09/2012 Colonoscopy DIAGNOSTIC ARTHROSCOPY SHOULDER +- SYNOVIAL BX Right 04/10/2017 Right shoulder arthroscopy with open SAD and rotator cuff repair EGD TRANSORAL BIOPSY SINGLE/MULTIPLE 01/23/08 Minimal antral gastritis HEART CATHETERIZATION 01/2016 no intervention Partial hysterectomy still has ovaries PAST SURGICAL HISTORY OF 02/2016 total teeth extraction RMVL LENS MATERIAL PHACOFRAGMENTATION ASPIR 12/2010 Cataract Extraction RPR UMBILICAL HRNA 5 YRS/> REDUCIBLE 12/04/2016 Hernia repair, umbilical >5yr SURGICAL ARTHROSCOPY SHOULDER W/ROTATOR CUFF RPR Right 01/01/2018 Right shoulder arthroscopy SAD, Acromioplasty, debridement glenohumeral joint, biceps tenotomy, RCR, superior capsular reconstruction ALLERGIES Amlodipine, Ativan [Lorazepam], Baclofen, Methotrexate, Nadolol, Nexium [Esomeprazole Magnesium], Penicillin G, and Propranolol MEDICATIONS ipratropium (ATROVENT) 0.02 % nebulizer solution Use 2.5 mL via nebulizer four times a day as needed for wheezing/shortness of breath. Use over 5-15minutes. Dx:J45.40 Nebulizer Accessories kit 1 each once daily. albuterol (PROVENTIL) 2.5 mg /3 mL (0.083 %) nebulizer solution Use 3 mL via nebulizer every 4 hours as needed for wheezing/shortness of breath. Nebulizer and Compressor For Neb 1 each every 4 hours as needed. busPIRone (BUSPAR) 10 mg tablet Take 1 tablet by mouth three times a day. loperamide (IMODIUM) 2 mg cap(s) Take 1 capsule by mouth three times a day as needed. meloxicam (MOBIC) 15 mg tablet Take 1 tablet by mouth once daily. SUMAtriptan (IMITREX) 50 mg tablet Take 1 tablet by mouth as needed for migraine headache (see administration instructions). START AT ONSET OF HEADACHE. JULY (more content not included)... [facility] 06-19-2024 History of Present illness Narrative CC: Patient presents with: Recheck: Medication follow up HPI Leyda Lopez is a 63 year old female who presents today for COPD concerns. Recording using [employer] software for draft documentation of the visit was discussed with the patient/authorized traffic workforce representative; all questions welcomed and answered. Patient/authorized traffic workforce representative agreed to proceed COPD: - Hospitalized for COPD exacerbation approximately one month ago; treated with azithromycin and prednisone. Alvarado better when on prednisone and would like to be on it again. - Suspected pneumonia during hospitalization, but not confirmed. - On home oxygen therapy: 2 L at night, 3-4 L during the day. - Reports improvement in activity levels; SpO2 around 94% on 3-4 L O2. - Persistent dyspnea, especially when climbing stairs. - Recent increase in dyspnea and wheezing over the past couple of weeks. - Unable to use albuterol inhaler due to difficulty with administration; prefers nebulizer treatments. -Never picked up nebulizer as ordered by hospital - Denies increased use of albuterol inhaler during recent exacerbation. - Recent episodes of diaphoresis and feeling unwell, particularly last night. Memory Changes: - at end of appointment this was brought up because patient was very poor historian on her concerns and boyfriend was trying to explain what patient needed. Has appointment to discuss this further as her psychiatrist called with concerns of this recently as well. Currently denies meth usage and states she is just under a lot of stress and is depressed due to her adult disabled daughter being removed from her home and resulting financial issues. - Noted memory changes over the past year and a half. Per boyfriend he has noticed this for a while but never brought it up. - No recent brain imaging performed. - No scheduled neurology appointment. REVIEW OF SYSTEMS See HPI PAST MEDICAL HISTORY Diagnosis Date Abdominal pain, right upper quadrant ADD (attention deficit disorder) Seeing psychiatry Anemia, unspecified Asthma Back pain chronic-Seeing Dr. Blankenship Bipolar affective disorder ([facility]) Chronic right shoulder pain Seeing Dr. Molina Closed dislocation of tarsometatarsal (joint) 01/18/2011 COPD (chronic obstructive pulmonary disease) ([facility]) Depressive disorder, not elsewhere classified 03/22/2005 Disorder of bone and cartilage, unspecified 02/09/2008 Distal radius fracture 01/05/2011 Dysuria Fibromyalgia GERD (gastroesophageal reflux disease) IBS (irritable bowel syndrome) Mitral regurgitation Severe Neck pain chronic-takes vicodin for this NSTEMI (non-ST elevated myocardial infarction) ([facility]) Seeing Dr. Hutton Other and unspecified hyperlipidemia Panic disorder without agoraphobia 03/22/2005 PMR (polymyalgia rheumatica) ([facility]) RA (rheumatoid arthritis) ([facility]) Unspecified essential hypertension 03/22/2005 PAST SURGICAL HISTORY Procedure Laterality Date COLONOSCOPY FLX DX W/COLLJ SPEC WHEN PFRMD 01/23/08 Normal COLONOSCOPY FLX DX W/COLLJ SPEC WHEN PFRMD 01/09/2012 Colonoscopy DIAGNOSTIC ARTHROSCOPY SHOULDER +- SYNOVIAL BX Right 04/10/2017 Right shoulder arthroscopy with open SAD and rotator cuff repair EGD TRANSORAL BIOPSY SINGLE/MULTIPLE 01/23/08 Minimal antral gastritis HEART CATHETERIZATION 01/2016 no intervention Partial hysterectomy still has ovaries PAST SURGICAL HISTORY OF 02/2016 total teeth extraction RMVL LENS MATERIAL PHACOFRAGMENTATION ASPIR 12/2010 Cataract Extraction RPR UMBILICAL HRNA 5 YRS/> REDUCIBLE 12/04/2016 Hernia repair, umbilical >5yr SURGICAL ARTHROSCOPY SHOULDER W/ROTATOR CUFF RPR Right 01/01/2018 Right shoulder arthroscopy SAD, Acromioplasty, debridement glenohumeral joint, biceps tenotomy, RCR, superior capsular reconstruction ALLERGIES Amlodipine, Ativan [Lorazepam], Baclofen, Methotrexate, Nadolol, Nexium [Esomeprazole Magnesium], Penicillin G, and Propranolol MEDICATIONS ipratropium (ATROVENT) 0.02 % nebulizer solution Use 2.5 mL via nebulizer four times a day as needed for wheezing/shortness of breath. Use over 5-15minutes. Dx:J45.40 Nebulizer Accessories kit 1 each once daily. albuterol (PROVENTIL) 2.5 mg /3 mL (0.083 %) nebulizer solution Use 3 mL via nebulizer every 4 hours as needed for wheezing/shortness of breath. Nebulizer and Compressor For Neb 1 each every 4 hours as needed. busPIRone (BUSPAR) 10 mg tablet Take 1 tablet by mouth three times a day. loperamide (IMODIUM) 2 mg cap(s) Take 1 capsule by mouth three times a day as needed. meloxicam (MOBIC) 15 mg tablet Take 1 tablet by mouth once daily. SUMAtriptan (IMITREX) 50 mg tablet Take 1 tablet by mouth as needed for migraine headache (see administration instructions). START AT ONSET OF HEADACHE. MAY REPEAT DOSE AFTER 2 HOURS. traZODone (DESYREL) 50 mg tablet Take 1 tablet by mouth daily at bedtime. Blood Pressure Monitor 1 Each as needed. OXYGEN, HOME THERAPY, 2 L/min by Nasal Cannula route as directed. At night & 5 L/min when mobile predniSONE (DELTASONE) 20 mg tablet Please take the pill for 7 days followed by taking half the pill for another 7 days and stop. tiZANidine (ZANAFLEX) 4 mg tablet Take 1 tablet by mouth every 8 hours as needed. furosemide (LASIX) 40 mg tablet Take 1 tablet by mouth once daily. lisinopril (ZESTRIL) 40 mg tablet Take 1 tablet by mouth once daily. escitalopram oxalate (LEXAPRO) 20 mg tablet Take 1 tablet by mouth once daily. atorvastatin (LIPITOR) 40 mg tablet TAKE ONE TABLET BY MOUTH DAILY AT 9PM AT BEDTIME amitriptyline 150 mg tablet Take 1 tablet by mouth daily at bedtime. pregabalin (LYRICA) 150 mg capsule Take 1 capsule by mouth two times a day for 90 days. hydrOXYzine HCl (ATARAX) 50 mg tablet Take 1 tablet by mouth every 8 hours as needed for anxiety. ondansetron orally disintegrating (ZOFRAN ODT) 4 mg disintegrating tablet Take 1 tablet by mouth every 8 hours as needed. fluticasone-salmeterol (ADVAIR, WIXELA) 250-50 mcg/dose inhaler INHALE 1 PUFF BY MOUTH DIRECTED TWICE DAILY potassium chloride ER (KLOR-CON) 20 mEq tablet Take 1 tablet by mouth once daily. nitroglycerin sublingual (NITROQUICK) 0.4 mg SL tablet Dissolve 0.4 mg under the tongue every 5 minutes as needed for chest pain. acetaminophen 325 mg cap Take by mouth. Dexlansoprazole (DEXILANT) 60 mg CpDM TAKE ONE CAPSULE BY MOUTH DAILY AT 9AM hyoscyamine sublingual (LEVSIN SL) 0.125 mg Dissolve 1 tablet under the tongue three times daily as needed. Cholecalciferol, Vitamin D3, 2,000 unit tab Take 2 tablets by mouth once daily. FAMILY HISTORY Problem Relation Age of Onset COPD Mother Breast Cancer Mother Heart Father DC COPD Father other (Pulmonary fibrosis) Father Social History Tobacco Use Smoking status: Former Current packs/day: 0.00 Average packs/day: 0.5 packs/day for 20.0 years (10.0 ttl pk-yrs) Types: Cigarettes Start date: 1973 Quit date: 03/04/1989 Years since quittin.3 Smokeless tobacco: Never Tobacco comments: Both parents smoked in childhood home. Lived with smoker as adult. Vaping Use Vaping status: Never Used Substance Use Topics Alcohol use: No Drug use: No PHYSICAL EXAM BP 128/66 Pulse 68 Resp 16 Wt 64.4 kg (142 lb) SpO2 94% BMI 30.20 kg/m General Appearance: well appearing, in no acute distress, alert Pysch: difficult to make eye contact as usual, very fidgety and restless. Appears depressed when discussing her daughter Lungs: Lungs clear to auscultation. No wheezing, rhonchi, rales. Heart: RRR without murmur, gallop, or rubs. No ectopy Health maintenance reviewed with patient: Alpha-1 Antitrypsin Deficiency Screening Never done Shingrix Vaccine(1 of 2) Never done Pneumococcal Vaccine: 50+(2 of 2 - PCV) due on 01/28/2013 Mammogram Screening due on 08/06/2017 RSV Vaccine(1 - Risk 60-74 years 1-dose series) Never done Colorectal Cancer Screening due on 01/08/2022 Serum Creatinine due on 12/25/2024 Annual PCP Team Chronic Disease Visit due on 06/19/2025 BP Controlled (<130/80) due on 06/19/2025 Diabetes Screening due on 12/25/2026 Lipid Screening due on 02/12/2028 DTaP,Tdap,Td Vaccine(3 - Td or Tdap) due on 07/22/2028 Spirometry Completed Influenza Vaccine Completed Hepatitis C Screening Completed HIV Screening Completed Cervical Cancer Screening Discontinued Covid-19 Vaccine Discontinued DATA REVIEWED: No new labs Assessment/Plan 1. Shortness of breath (R06.02) 2. Moderate persistent asthma without complication (HCC) (J45.40) 3. Chronic obstructive pulmonary disease, unspecified COPD type (HCC) (J44.9) - Recent hospitalization for COPD exacerbation; currently on supplemental oxygen 2L at night and 3-4L during the day. - Experiencing increased dyspnea, wheezing, and diaphoresis over the past couple of weeks; no significant increase in albuterol inhaler use due to difficulty with administration. - Ordered albuterol nebulizer to be picked up at [facility]. She needs this as she has difficulty utilizing the inhaler - lungs clear, will not order prednisone at at this time and see if the nebulizer treatments will help over the weekend to improve symptoms. - Ordered chest X-ray, blood work, and urinalysis to evaluate current respiratory status and rule out infection. - Advised to go to the ER if breathing worsens over the weekend. - Follow-up appointment scheduled for next week to review results and assess progress. 4. Memory change (R41.3) - has appointment Saturday for full evaluation of this. Blood work ordered to be reviewed then. Has history of drug and alcohol abuse but denies current usage. Is under a large amount of emotional stress with removal of daughter and boyfriend feels the issues have been occurring around similar time frame. - will further assess on Saturday and order imaging and possible neuro consult if indicated - Recent onset of memory changes noted; no previous brain imaging performed. - Ordered blood work to evaluate potential underlying causes. - Discussed potential side effects of prednisone on cognitive function; decided against prescribing additional steroids at this time. - Referred to neurology for further evaluation. 5. Dependence on supplemental oxygen (Z99.81) - Continues to require supplemental oxygen 2L at night and 3-4L during the day. - Oxygen saturation levels reportedly around 94% at home. - Monitoring for any changes in oxygen requirements. Prescription instructions reviewed with patient as applicable. Potential red flag symptoms discussed with the patient. Reviewed appropriate action plan to take if red flag symptoms occur. Patient agreeable to treatment plan. Dali Rice APRN.CNP documented in this encounter [facility] 06-17-2024 Telephone encounter Note Patient returns call and message reviewed. Patient reports she is still having some SOB at times but not all the time. Still requests prednisone and agreeable to appointment to be evaluated. Patient also had questions about nebulizer supplies. Will check with [facility] since that is where prescription was sent and let us know if it needs to be sent to [facility]. Patient also asking about switching medications to [facility] pharmacy that pre-packages medications. She said it was discussed at her last OV. OV scheduled to discuss. Ca Valenzuela RN [facility] 06-17-2024 Miscellaneous Notes Patient returns call and message reviewed. Patient reports she is still having some SOB at times but not all the time. Still requests prednisone and agreeable to appointment to be evaluated. Patient also had questions about nebulizer supplies. Will check with [facility] since that is where prescription was sent and let us know if it needs to be sent to [facility]. Patient also asking about switching medications to [facility] pharmacy that pre-packages medications. She said it was discussed at her last OV. OV scheduled to discuss. Ca Valenzuela RN She was just seen for pneumonia. She needs seen if her breathing is not right. Thank you Dali Rice APRN.CNP Patient has been identified by name and date of : Yes Patient phones for refill(s): Requested Prescriptions Pending Prescriptions Disp Refills predniSONE (DELTASONE) 20 mg tablet 12 tablet 0 Sig: Please take the pill for 7 days followed by taking half the pill for another 7 days and stop. Date of last office visit in primary care: 05/08/2024 Date of next office visit in primary care: 06/17/2024 Please advise. Thank you. Leola Shelley LPN. documented in this encounter [facility] 06-17-2024 Telephone encounter Note She was just seen for pneumonia. She needs seen if her breathing is not right. Thank you Dali Rice APRN.PLATE FILLER [facility] 06-17-2024 Telephone encounter Note Patient has been identified by name and date of : Yes Patient phones for refill(s): Requested Prescriptions Pending Prescriptions Disp Refills predniSONE (DELTASONE) 20 mg tablet 12 tablet 0 Sig: Please take the pill for 7 days followed by taking half the pill for another 7 days and stop. Date of last office visit in primary care: 05/08/2024 Date of next office visit in primary care: 06/17/2024 Please advise. Thank you. Leola Shelley LPN. [facility] 06-17-2024 Telephone encounter Note Patient has been identified by name and date of : Yes Patient phones for refill(s): Requested Prescriptions Pending Prescriptions Disp Refills loperamide (IMODIUM) 2 mg cap(s) 30 capsule 0 Sig: Take 1 capsule by mouth three times a day as needed. Date of last office visit in primary care: 05/08/2024 Date of next office visit in primary care: 06/29/2024 Please advise. Thank you. Leola Shelley LPN. [facility] 04-16-2025 Miscellaneous Notes Patient has been identified by name and date of : Yes Patient phones for refill(s): Requested Prescriptions Pending Prescriptions Disp Refills loperamide (IMODIUM) 2 mg cap(s) 30 capsule 0 Sig: Take 1 capsule by mouth three times a day as needed. Date of last office visit in primary care: 05/08/2024 Date of next office visit in primary care: 06/29/2024 Please advise. Thank you. Leola Shelley LPN. documented in this encounter [facility] 06-16-2024 Note Patient Outreach (IN [facility]) -------- LEYDA LOPEZ ([id number]) 1960 F Date Time Provider Department 06/16/24 VELVET PALACIO During your visit today, we recorded the following information about you: Allergies As of Date: 06/16/2024 Noted Allergy Reaction AMLODIPINE 06/13/2023 14 - Other: See Comments Comments: kale ATIVAN (LORAZEPAM) 08/24/2014 1 - Mental Status Change 11 - Vomiting Comments: mood swings BACLOFEN 06/04/2014 1 - Mental Status Change Comments: angry,mood effect METHOTREXATE 12/20/2011 11 - Vomiting Comments: abdomen pain,vomiting, sbo NADOLOL 02/05/2013 5 - Intolerance Comments: body burning,tingly NEXIUM (ESOMEPRAZOLE MAGNESIUM) 07/15/2015 14 - Other: See Comments Comments: reflux-no relief PENICILLIN G 09/29/2012 8 - GI Upset Comments: patient reports these symptoms after medication was ordered PROPRANOLOL 01/30/2013 5 - Intolerance Comments: fatigue,sleepy Date Reviewed: 05/23/2024 Reviewed by: Sreekanth Spears, RN - Fully Assessed Visit Diagnoses:CKD (chronic kidney disease) stage 3, GFR 30-59 ml/min ([facility]) [N18.30] Obesity [E66.9] Hyperlipidemia [E78.5] Order(s):ALBUMIN/CREATININE RATIO, URINE [SQUACR] Order #: [id number] FUTURE HEMOGLOBIN A1C [TYDCZ7X] Order #: [id number] FUTURE LIPID PANEL, FASTING [SQLIPB] Order #: [id number] FUTURE Prescriptions as of 06/19/2024 - busPIRone (BUSPAR) 10 mg tablet Take 1 tablet by mouth three times a day. - loperamide (IMODIUM) 2 mg cap(s) Take 1 capsule by mouth three times a day as needed. - meloxicam (MOBIC) 15 mg tablet Take 1 tablet by mouth once daily. - SUMAtriptan (IMITREX) 50 mg tablet Take 1 tablet by mouth as needed for migraine headache (see administration instructions). START AT ONSET OF HEADACHE. MAY REPEAT DOSE AFTER 2 HOURS. - traZODone (DESYREL) 50 mg tablet Take 1 tablet by mouth daily at bedtime. - ipratropium (ATROVENT) 0.02 % nebulizer solution Use 2.5 mL via nebulizer four times a day as needed for wheezing/shortness of breath. Use over 5-15minutes. Dx:J45.40 - Nebulizer Accessories kit 1 Each once daily. - Blood Pressure Monitor 1 Each as needed. - OXYGEN, HOME THERAPY, 2 L/min by Nasal Cannula route as directed. At night AND 5 L/min when mobile - predniSONE (DELTASONE) 20 mg tablet Please take the pill for 7 days followed by taking half the pill for another 7 days and stop. - tiZANidine (ZANAFLEX) 4 mg tablet Take 1 tablet by mouth every 8 hours as needed. - furosemide (LASIX) 40 mg tablet Take 1 tablet by mouth once daily. - lisinopril (ZESTRIL) 40 mg tablet Take 1 tablet by mouth once daily. - escitalopram oxalate (LEXAPRO) 20 mg tablet Take 1 tablet by mouth once daily. - atorvastatin (LIPITOR) 40 mg tablet TAKE ONE TABLET BY MOUTH DAILY AT 9PM AT BEDTIME - amitriptyline 150 mg tablet Take 1 tablet by mouth daily at bedtime. - pregabalin (LYRICA) 150 mg capsule Take 1 capsule by mouth two times a day for 90 days. - hydrOXYzine HCl (ATARAX) 50 mg tablet Take 1 tablet by mouth every 8 hours as needed for anxiety. - ondansetron orally disintegrating (ZOFRAN ODT) 4 mg disintegrating tablet Take 1 tablet by mouth every 8 hours as needed. - fluticasone-salmeterol (ADVAIR, WIXELA) 250-50 mcg/dose inhaler INHALE 1 PUFF BY MOUTH DIRECTED TWICE DAILY - potassium chloride ER (KLOR-CON) 20 mEq tablet Take 1 tablet by mouth once daily. - albuterol HFA (PROAIR HFA) 90 mcg/actuation inhaler Inhale 2 Puffs as instructed. - nitroglycerin sublingual (NITROQUICK) 0.4 mg SL tablet Dissolve 0.4 mg under the tongue every 5 minutes as needed for chest pain. - acetaminophen 325 mg cap Take by mouth. - Dexlansoprazole (DEXILANT) 60 mg CpDM TAKE ONE CAPSULE BY MOUTH DAILY AT 9AM - hyoscyamine sublingual (LEVSIN SL) 0.125 mg Dissolve 1 tablet under the tongue three times daily as needed. - Cholecalciferol, Vitamin D3, 2,000 unit tab Take 2 tablets by mouth once daily. Meds Comments as of 07/05/2023: Patient is not sure what antibiotic she was place on in hospital Problem List As Of Date 06/16/2024 Noted Resolved Essential hypertension [I10] 03/22/2005 Moderate episode of recurrent major depressive *03/22/2005 PANIC DISORDER WITHOUT AGORAPHOBIA [F41.0] 03/22/2005 Asthma [J45.909] 03/22/2005 Hyperlipidemia [E78.5] ANEMIA BLOOD LOSS CHRONIC [D50.0] 12/23/2007 12/01/2013 BONE AND CARTILAGE DIS NOS [M89.9, M94.9] 02/09/2008 CRI (chronic renal insufficiency) (HCC) [N18.9] 09/30/2009 12/01/2013 Bipolar affective [F31.9] 04/27/2010 05/21/2018 COPD (chronic obstructive pulmonary disease) [J*10/04/2010 Hypokalemia [E87.6] 10/04/2010 12/01/2013 Left Plantar fasciitis [M72.2] 10/04/2010 12/01/2013 GERD (gastroesophageal reflux disease) [K21.9] 10/25/2010 Dysphagia [R13.10] 10/25/2010 12/01/2013 Calcaneal spur [M77.30] 01/08/2011 Chronic pain [G89.29] (more content not included)... [facility] 06-15-2024 Telephone encounter Note Patient has been identified by name and date of : Yes Patient phones for refill(s): Requested Prescriptions Pending Prescriptions Disp Refills busPIRone (BUSPAR) 10 mg tablet 90 tablet 1 Sig: Take 1 tablet by mouth three times a day. Date of last office visit in primary care: 05/08/2024 Date of next office visit in primary care: 06/29/2024 Please advise. Thank you. Leola Shelley LPN. [facility] 06-15-2024 Miscellaneous Notes Patient has been identified by name and date of : Yes Patient phones for refill(s): Requested Prescriptions Pending Prescriptions Disp Refills busPIRone (BUSPAR) 10 mg tablet 90 tablet 1 Sig: Take 1 tablet by mouth three times a day. Date of last office visit in primary care: 05/08/2024 Date of next office visit in primary care: 06/29/2024 Please advise. Thank you. Leola Shelley LPN. documented in this encounter [facility] 06-01-2024 Telephone encounter Note Patient calling she is not wanting to use [facility] she wants to stay with [facility] pharmacy. She got her last refill on sumatriptan on 05/23/2024. She said she has headache every day. Trazodone was transferred to [facility] on 05/18/2024. Please advise The patient has been identified by name and date of : Yes Caregiver verified no other encounters exist for this prescription request: Yes Caregiver confirmed with patient/requestor that no other refills are due, in the near future, with this provider at this time: Yes The last office visit in the department: 05/08/2024 Does the patient have a future office visit with this provider/department: Yes 06/29/2024 Requested Prescriptions Pending Prescriptions Disp Refills SUMAtriptan (IMITREX) 50 mg tablet 9 tablet 5 Sig: Take 1 tablet by mouth as needed for migraine headache (see administration instructions). START AT ONSET OF HEADACHE. MAY REPEAT DOSE AFTER 2 HOURS. traZODone (DESYREL) 50 mg tablet 30 tablet 2 Sig: Take 1 tablet by mouth daily at bedtime. Kellen Alexandra LPN June 01, 2024 11:26 AM [facility] 06-01-2024 Miscellaneous Notes Patient calling she is not wanting to use [facility] she wants to stay with [facility] pharmacy. She got her last refill on sumatriptan on 05/23/2024. She said she has headache every day. Trazodone was transferred to [facility] on 05/18/2024. Please advise The patient has been identified by name and date of : Yes Caregiver verified no other encounters exist for this prescription request: Yes Caregiver confirmed with patient/requestor that no other refills are due, in the near future, with this provider at this time: Yes The last office visit in the department: 05/08/2024 Does the patient have a future office visit with this provider/department: Yes 06/29/2024 Requested Prescriptions Pending Prescriptions Disp Refills SUMAtriptan (IMITREX) 50 mg tablet 9 tablet 5 Sig: Take 1 tablet by mouth as needed for migraine headache (see administration instructions). START AT ONSET OF HEADACHE. MAY REPEAT DOSE AFTER 2 HOURS. traZODone (DESYREL) 50 mg tablet 30 tablet 2 Sig: Take 1 tablet by mouth daily at bedtime. Kellen Alexandra LPN June 01, 2024 11:26 AM documented in this encounter [facility] 05-23-2024 Telephone encounter Note Reason for Call: error [facility] 05-23-2024 Miscellaneous Notes Reason for Call: error documented in this encounter [facility] 05-23-2024 Telephone encounter Note Patient calling with request for medication transfer Patient denies any new or worsening symptoms of which a provider is not aware: No. Needs migraine medicine transferred to [facility]. Advised to call [facility] and have them transferred from other pharmacy. [facility] 05-23-2024 Miscellaneous Notes Patient calling with request for medication transfer Patient denies any new or worsening symptoms of which a provider is not aware: No. Needs migraine medicine transferred to [facility]. Advised to call [facility] and have them transferred from other pharmacy. documented in this encounter [facility] 05-23-2024 Telephone encounter Note Patient calling with request for refill of immitrex. Patient states her medicines [facility] transferred to [facility] and she has a migraine and needs immitrex as prescribed. Triager spoke with Eda at [facility] pharmacy who confirmed [facility]. Message left for pharmacist automation test developer at [facility] to contact patient at phone number on file to transfer prescriptions back to preferred pharmacy. Patient updated and verbalizes understanding. Patient denies any new or worsening symptoms of which a provider is not aware:Yes. [facility] 05-23-2024 Miscellaneous Notes Patient calling with request for refill of immitrex. Patient states her medicines were transferred to [facility] and she has a migraine and needs immitrex as prescribed. Triager spoke with Eda at [facility] pharmacy who confirmed [facility] to [facility]. Message left for pharmacist automation test developer at [facility] to contact patient at phone number on file to transfer prescriptions back to preferred pharmacy. Patient updated and verbalizes understanding. Patient denies any new or worsening symptoms of which a provider is not aware:Yes. documented in this encounter [facility] 05-18-2024 Telephone encounter Note Dyana with [facility] calls to request refills for patient. Notified Dyana that patient needs to call to request refills as they are not listed as preferred pharmacy with verbalized understanding. Ca Valenzuela RN [facility] 05-18-2024 Miscellaneous Notes Dyana with [facility] calls to request refills for patient. Notified Dyana that patient needs to call to request refills as they are not listed as preferred pharmacy with verbalized understanding. Ca Valenzuela RN documented in this encounter [facility] 05-12-2024 Telephone encounter Note Pt phoned to report she just got off the phone with [employer]. Reports they cancelled her insurance. Reports the nurse in Dr. Palacio's office needs to call [facility] at [phone] and let them know she does have history of CHF, in order to get her insurance back. This nurse phoned the number patient gave and spoke to a traffic workforce representative. Informed traffic workforce representative patient does have hx of CHF. [employer] Specialist states patient's insurance was terminated on 05-01-24 so this information is no longer needed. Advised traffic workforce representative patient just spoke to someone at [facility] who told her if doctors office calls to verify patient has CHF, they would reinstate patient's insurance. [employer] Specialist took the information. Notified patient information was given to [facility]. [facility] 05-12-2024 Miscellaneous Notes Pt phoned to report she just got off the phone with [facility]. Reports they cancelled her insurance. Reports the nurse in Dr. Palacio's office needs to call [facility] at [phone] and let them know she does have history of CHF, in order to get her insurance back. This nurse phoned the number patient gave and spoke to a traffic workforce representative. Informed traffic workforce representative patient does have hx of CHF. [employer] Specialist states patient's insurance was terminated on 05-01-24 so this information is no longer needed. Advised traffic workforce representative patient just spoke to someone at [facility] who told her if doctors office calls to verify patient has CHF, they would reinstate patient's insurance. [employer] Specialist took the information. Notified patient information was given to [facility]. documented in this encounter [facility] 05-12-2024 Telephone encounter Note Called and spoke to patient, patient notified can qu[employer] picking machine operator letter for handicap placard. Stated does not think the insurance paperwork was dropped off originally and will follow up with insurance. Cesia Steele LPN May 12, 2024 1:12 PM [facility] 05-12-2024 Miscellaneous Notes Called and spoke to patient, patient notified can [employer] picking machine operator letter for handicap placard. Stated does not think the insurance paperwork was dropped off originally and will follow up with insurance. Cesia Steele LPN May 12, 2024 1:12 PM Called and spoke to patient, patient to contact insurance for paperwork and will drop off. Faxed order for nebulizer and face sheet to [facility] per patient request Patient will still need a letter for handicap placard and will quill picking machine operator when available. Cesia IvetteRADHA May 12, 2024 9:27 AM Please ask patient to notify her pulmonary doctors about her oxygen, we usually dont deal with it. She has Dr Willams on her team who should be helping her with it. Can someone look into the paper work for the patient.? I dont have it with me. I will send the rx for nebulization Regards, Velvet Palacio MD Pt called in asking about nebulizer, solution, and handicapped placard. I let Pt know there was a message in, but provider had not gotten to it as of yet. Pt was also asking about a paper she had dropped off to first floor PSSs. She states her boyfriend dropped it off at the end of April for the providers to fill out for her insurance. She states the health care closed her insurance until they get that form filled out and turned back in. She states it is supposed to go over her disease processes CHF, DM, and kidney disease and they wanted records faxed over. She said she thinks there was a fax # on the paper for providers office to fax it back to. I told her I didn't see anything in her chart about it. She said she needs it turned in as soon as possible so she can get her insurance back by June 02. Pt was also reporting she needs more O2 tanks, she states she got 5 this time and she runs out of them when she is in the stores. She states she can take the tanks to the O2 company and switch them out, but it would be easier for her if she were able to get more delivered to her house. I told her I would let provider know and have her get back to Pt. Please call and advise. Pt states if she does not answer to leave a VM for her. Patient asking if Dr. Palacio would complete the following: Place order for nebulizer with medication to [facility], if agreeable? (I pended what was last ordered years ago) Requesting order for BP monitor to be sent to Son. Pended. Place handicap placard letter for her. She will come in to pick it up when ready. 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 Ruth Tobar RN documented in this encounter [facility] 05-12-2024 Telephone encounter Note Called and spoke to patient, patient to contact insurance for paperwork and will drop off. Faxed order for nebulizer and face sheet to [facility] per patient request Patient will still need a letter for handicap placard and will quill picking machine operator when available. Cesia Steele LPN May 12, 2024 9:27 AM [facility] 05-11-2024 Telephone encounter Note Please ask patient to notify her pulmonary doctors about her oxygen, we usually dont deal with it. She has Dr Willams on her team who should be helping her with it. Can someone look into the paper work for the patient.? I dont have it with me. I will send the rx for nebulization Regards, Velvet Palacio MD [facility] 05-11-2024 Telephone encounter Note Pt called in asking about nebulizer, solution, and handicapped placard. I let Pt know there was a message in, but provider had not gotten to it as of yet. Pt was also asking about a paper she had dropped off to first floor PSSs. She states her boyfriend dropped it off at the end of April for the providers to fill out for her insurance. She states the health care closed her insurance until they get that form filled out and turned back in. She states it is supposed to go over her disease processes CHF, DM, and kidney disease and they wanted records faxed over. She said she thinks there was a fax # on the paper for providers office to fax it back to. I told her I didn't see anything in her chart about it. She said she needs it turned in as soon as possible so she can get her insurance back by June 02. Pt was also reporting she needs more O2 tanks, she states she got 5 this time and she runs out of them when she is in the stores. She states she can take the tanks to the O2 company and switch them out, but it would be easier for her if she were able to get more delivered to her house. I told her I would let provider know and have her get back to Pt. Please call and advise. Pt states if she does not answer to leave a VM for her. [facility] 05-09-2024 Telephone encounter Note Patient asking if Dr. Palacio would complete the following: Place order for nebulizer with medication to [facility], if agreeable? (I pended what was last ordered years ago) Requesting order for BP monitor to be sent to Son. Pended. Place handicap placard letter for her. She will come in to pick it up when ready. 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 Ruth Tobar RN [facility] 05-08-2024 Note HNO ID: [id number] Author: VELVET PALACIO MD Service: ? Author Type: Physician Type: Progress Notes Filed: 05/08/2024 17:26 Note Text: Reason for Visit Leyda Lopez is a 63 year oldfemale who presents here Patient presents with: Transition Of Care: [facility] 05/01/24-05/03/24: COPD exacerbation Health Maintenance BP Controlled (<130/80) Alpha-1 Antitrypsin Deficiency Screening Shingrix Vaccine(1 of 2) Pneumococcal Vaccine: 50+(2 of 2 - PCV) Mammogram Screening RSV Vaccine(1 - Risk 60-74 years 1-dose series) Colorectal Cancer Screening HPI This is a 60-year-old woman with a past medical history of chronic back pain, fibromyalgia, cervical radiculitis, hypertension, hyperlipidemia, asthma, reflux disease, CKD and irritable bowel. She also has major psychiatric disorders like depression, anxiety, panic, ADD and substance abuse history in the past. Patient is here today for a hospital visit follow-up. She was admitted on May 01, 2024 and discharged on May 04, 2024. She presented to the ER for shortness of breath. X-ray showed infiltrates. She also noted that she ran out of her oxygen. They treated her for COPD exacerbation with steroids, inhalations and gave her some antibiotics. She improved in the hospital and then was discharged home. She is done with prednisone and azithromycin. She would like to have more prednisone, she thinks she needs to get back on the prednisone. This has been a point of contention for us in the past. She request to have prednisone because it makes her feel better with her wrists and overall. We discussed a slower taper today. While walking out of the office she said she wants her Zanaflex refill. 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 She is following up with the orthopedician for it. No problem-specific Assessment AND Plan notes found for this encounter. PAST MEDICAL HISTORY Diagnosis Date Abdominal pain, right upper quadrant ADD (attention deficit disorder) Seeing psychiatry Anemia, unspecified Asthma Back pain chronic-Seeing Dr. Blankenship Bipolar affective disorder ([facility]) Chronic right shoulder pain Seeing Dr. Molina Closed dislocation of tarsometatarsal (joint) 01/18/2011 COPD (chronic obstructive pulmonary disease) ([facility]) Depressive disorder, not elsewhere classified 03/22/2005 Disorder of bone and cartilage, unspecified 02/09/2008 Distal radius fracture 01/05/2011 Dysuria Fibromyalgia GERD (gastroesophageal reflux disease) IBS (irritable bowel syndrome) Mitral regurgitation Severe Neck pain chronic-takes vicodin for this NSTEMI (non-ST elevated myocardial infarction) ([facility]) Seeing Dr. Hutton Other and unspecified hyperlipidemia Panic disorder without agoraphobia 03/22/2005 PMR (polymyalgia rheumatica) ([facility]) RA (rheumatoid arthritis) ([facility]) Unspecified essential hypertension 03/22/2005 PAST SURGICAL HISTORY Procedure Laterality Date COLONOSCOPY FLX DX W/COLLJ SPEC WHEN PFRMD 01/23/08 Normal COLONOSCOPY FLX DX W/COLLJ SPEC WHEN PFRMD 01/09/2012 Colonoscopy DIAGNOSTIC ARTHROSCOPY SHOULDER +- SYNOVIAL BX Right 04/10/2017 Right shoulder arthroscopy with open SAD and rotator cuff repair EGD TRANSORAL BIOPSY SINGLE/MULTIPLE 01/23/08 Minimal antral gastritis HEART CATHETERIZATION 01/2016 no intervention Partial hysterectomy still has ovaries PAST SURGICAL HISTORY OF 02/2016 total teeth extraction RMVL LENS MATERIAL PHACOFRAGMENTATION ASPIR 12/2010 Cataract Extraction RPR UMBILICAL HRNA 5 YRS/> REDUCIBLE 12/04/2016 Hernia repair, umbilical >5yr SURGICAL ARTHROSCOPY SHOULDER W/ROTATOR CUFF RPR Right 01/01/2018 Right shoulder arthroscopy SAD, Acromioplasty, debridement glenohumeral joint, biceps tenotomy, RCR, superior capsular reconstruction FAMILY HISTORY Problem Relation Age of Onset COPD Mother Breast Cancer Mother Heart Father DC COPD Father other (Pulmonary fibrosis) Father Social History Tobacco Use Smoking status: Former Current packs/day: 0.00 Average packs/day: 0.5 packs/day for 20.0 years (10.0 ttl pk-yrs) Types: Cigarettes Start date: 1973 Quit date: 03/04/1989 Years since quittin.2 Smokeless tobacco: Never Tobacco comments: Both parents smoked in childhood home. Lived with smoker as adult. Vaping Use Vaping status: Never Used Substance Use Topics Alcohol use: No Drug use: No Past medical history, appointments, medications, allergies reviewed. Pertinent Lab/Diagnostic Studies are reviewed and discussed today Current Outpatient Medications: OXYGEN, HOME THERAPY, furosemide (LASIX) 40 mg tablet lisinopril (ZESTRIL) 40 mg tablet escitalopram oxalate (LEXAPRO) 20 mg tablet busPIRone (BUSPAR) 10 mg tablet atorvastatin (LIPITOR) 40 mg tablet amitriptyline 150 mg tablet SUMAtriptan (IMITREX) 50 mg tablet pregabalin (LYRICA) 150 mg capsule hydrOXYzine HCl (ATARAX) 50 mg tablet loperamide (IMODIUM) 2 mg cap(s) (more content not included)... [facility] 05-08-2024 History of Present illness Narrative Reason for Visit Leyda Lopez is a 63 year oldfemale who presents here Patient presents with: Transition Of Care: [facility] 05/01/24-05/03/24: COPD exacerbation Health Maintenance BP Controlled (<130/80) Alpha-1 Antitrypsin Deficiency Screening Shingrix Vaccine(1 of 2) Pneumococcal Vaccine: 50+(2 of 2 - PCV) Mammogram Screening RSV Vaccine(1 - Risk 60-74 years 1-dose series) Colorectal Cancer Screening HPI This is a 60-year-old woman with a past medical history of chronic back pain, fibromyalgia, cervical radiculitis, hypertension, hyperlipidemia, asthma, reflux disease, CKD and irritable bowel. She also has major psychiatric disorders like depression, anxiety, panic, ADD and substance abuse history in the past. Patient is here today for a hospital visit follow-up. She was admitted on May 01, 2024 and discharged on May 04, 2024. She presented to the ER for shortness of breath. X-ray showed infiltrates. She also noted that she ran out of her oxygen. They treated her for COPD exacerbation with steroids, inhalations and gave her some antibiotics. She improved in the hospital and then was discharged home. She is done with prednisone and azithromycin. She would like to have more prednisone, she thinks she needs to get back on the prednisone. This has been a point of contention for us in the past. She request to have prednisone because it makes her feel better with her wrists and overall. We discussed a slower taper today. While walking out of the office she said she wants her Zanaflex refill. 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 She is following up with the orthopedician for it. No problem-specific Assessment & Plan notes found for this encounter. PAST MEDICAL HISTORY Diagnosis Date Abdominal pain, right upper quadrant ADD (attention deficit disorder) Seeing psychiatry Anemia, unspecified Asthma Back pain chronic-Seeing Dr. Blankenship Bipolar affective disorder (HCC) Chronic right shoulder pain Seeing Dr. Molina Closed dislocation of tarsometatarsal (joint) 01/18/2011 COPD (chronic obstructive pulmonary disease) (HCC) Depressive disorder, not elsewhere classified 03/22/2005 Disorder of bone and cartilage, unspecified 02/09/2008 Distal radius fracture 01/05/2011 Dysuria Fibromyalgia GERD (gastroesophageal reflux disease) IBS (irritable bowel syndrome) Mitral regurgitation Severe Neck pain chronic-takes vicodin for this NSTEMI (non-ST elevated myocardial infarction) ([facility]) Seeing Dr. Hutton Other and unspecified hyperlipidemia Panic disorder without agoraphobia 03/22/2005 PMR (polymyalgia rheumatica) ([facility]) RA (rheumatoid arthritis) ([facility]) Unspecified essential hypertension 03/22/2005 PAST SURGICAL HISTORY Procedure Laterality Date COLONOSCOPY FLX DX W/COLLJ SPEC WHEN PFRMD 01/23/08 Normal COLONOSCOPY FLX DX W/COLLJ SPEC WHEN PFRMD 01/09/2012 Colonoscopy DIAGNOSTIC ARTHROSCOPY SHOULDER +- SYNOVIAL BX Right 04/10/2017 Right shoulder arthroscopy with open SAD and rotator cuff repair EGD TRANSORAL BIOPSY SINGLE/MULTIPLE 01/23/08 Minimal antral gastritis HEART CATHETERIZATION 01/2016 no intervention Partial hysterectomy still has ovaries PAST SURGICAL HISTORY OF 02/2016 total teeth extraction RMVL LENS MATERIAL PHACOFRAGMENTATION ASPIR 12/2010 Cataract Extraction RPR UMBILICAL HRNA 5 YRS/> REDUCIBLE 12/04/2016 Hernia repair, umbilical >5yr SURGICAL ARTHROSCOPY SHOULDER W/ROTATOR CUFF RPR Right 01/01/2018 Right shoulder arthroscopy SAD, Acromioplasty, debridement glenohumeral joint, biceps tenotomy, RCR, superior capsular reconstruction FAMILY HISTORY Problem Relation Age of Onset COPD Mother Breast Cancer Mother Heart Father DC COPD Father other (Pulmonary fibrosis) Father Social History Tobacco Use Smoking status: Former Current packs/day: 0.00 Average packs/day: 0.5 packs/day for 20.0 years (10.0 ttl pk-yrs) Types: Cigarettes Start date: 1973 Quit date: 03/04/1989 Years since quittin.2 Smokeless tobacco: Never Tobacco comments: Both parents smoked in childhood home. Lived with smoker as adult. Vaping Use Vaping status: Never Used Substance Use Topics Alcohol use: No Drug use: No Past medical history, appointments, medications, allergies reviewed. Pertinent Lab/Diagnostic Studies are reviewed and discussed today Current Outpatient Medications: OXYGEN, HOME THERAPY, furosemide (LASIX) 40 mg tablet lisinopril (ZESTRIL) 40 mg tablet escitalopram oxalate (LEXAPRO) 20 mg tablet busPIRone (BUSPAR) 10 mg tablet atorvastatin (LIPITOR) 40 mg tablet amitriptyline 150 mg tablet SUMAtriptan (IMITREX) 50 mg tablet pregabalin (LYRICA) 150 mg capsule hydrOXYzine HCl (ATARAX) 50 mg tablet loperamide (IMODIUM) 2 mg cap(s) meloxicam (MOBIC) 15 mg tablet traZODone (DESYREL) 50 mg tablet ondansetron orally disintegrating (ZOFRAN ODT) 4 mg disintegrating tablet tiZANidine (ZANAFLEX) 4 mg tablet fluticasone-salmeterol (ADVAIR, WIXELA) 250-50 mcg/dose inhaler potassium chloride ER (KLOR-CON) 20 mEq tablet albuterol HFA (PROAIR HFA) 90 mcg/actuation inhaler nitroglycerin sublingual (NITROQUICK) 0.4 mg SL tablet acetaminophen 325 mg cap Dexlansoprazole (DEXILANT) 60 mg CpDM hyoscyamine sublingual (LEVSIN SL) 0.125 mg ipratropium (ATROVENT) 0.02 % nebulizer solution Cholecalciferol, Vitamin D3, 2,000 unit tab Review of Systems CONSTITUTIONAL: No fevers, chills night sweats, unintended weight loss CARDIOVASCULAR: No chest pain, dyspnea, palpitations, orthopnea, PND, ankle edema. PULM: No dyspnea, unexplained cough. GI: No dysphagia/odynophagia, problematic reflux, constipation, diarrhea, changes in stool habits, hematochezia, melena. : No new urinary complaints, including dysuria, gross hematuria or pyuria. NEURO: No new balance problems, peripheral weakness/paresthesias or numbness of concern. Physical Exam BP 143/83 Pulse 81 Resp 20 Wt 66 kg (145 lb 9.6 oz) SpO2 96% BMI 30.96 kg/m General appearance: Well appearing, alert, in no acute distress, well nourished. Skin: Skin color, texture, turgor normal, no suspicious rashes or lesions Head: Normocephalic, no masses, lesions, tenderness or abnormalities Eyes: Anicteric sclera. Pupils are equally round and reactive to light. Extraocular movements are intact. Lungs:Normal breathing efforts, Lungs clear to auscultation. No wheezing, rhonchi, rales Heart: RRR without murmur, gallop, or rubs. Extremities: No deformities, edema, skin discoloration, clubbing or cyanosis. Good capillary refill. ASSESSMENT/PLAN: 1. Hospital discharge follow-up - ICD9: V67.59, ICD10: Z09 (primary diagnosis) Gave her a prescription of prednisone taper. 20 mg for 7 days and then 10 mg for the next 7 days. Gave also refill of Zanaflex. 2. COPD with exacerbation (HCC) - ICD9: 491.21, ICD10: J44.1 Her breathing is normal and her heart and lung sounds are normal today 3. Essential hypertension - ICD9: 401.9, ICD10: I10 - Controlled - Recommend home blood pressure monitoring, to bring results to next visit - Encouraged sodium restriction, DASH or Mediterranean diet - Recommend regular aerobic exercise 4. Hyperlipidemia, unspecified hyperlipidemia type - ICD9: 272.4, ICD10: E78.5 - Controlled - Counseled on healthy diet and regular exercise 5. Gastroesophageal reflux disease without esophagitis - ICD9: 530.81, ICD10: K21.9 - Discussed lifestyle modifications including losing weight, limiting caffeine, no meals three hours before sleep, and head of bed elevation 6. Stage 3b chronic kidney disease (HCC) - ICD9: 585.3, ICD10: N18.32 - eGFR: 60 Stable - Counseled on avoiding NSAIDs, adequate hydration 7. Moderate episode of recurrent major depressive disorder (HCC) - ICD9: 296.32, ICD10: F33.1 Appears to be a little tearful still about her daughter's situation. Guarding she was taken away from the patient Velvet Palacio MD Voice recognition software was used to compose this office note. Please excuse any unintended typographical errors. documented in this encounter [facility] 05-05-2024 Telephone encounter Note Opened in error. Duplicate request. Will close this encounter. [facility] 05-05-2024 Miscellaneous Notes Opened in error. Duplicate request. Will close this encounter. documented in this encounter [facility] 05-04-2024 Note Addended by: DALI RICE on: 05/04/2024 04:49 PM Modules accepted: Orders [facility] 05-04-2024 Miscellaneous Notes Addended by: DALI RICE on: 05/04/2024 04:49 PM Modules accepted: Orders Addended by: DALI RICE on: 05/04/2024 04:48 PM Modules accepted: Orders Can you please resent this medication. Last time it was printed and Pt does not know where it is. The patient has been identified by name and date of : Yes Caregiver verified no other encounters exist for this prescription request: Yes Caregiver confirmed with patient/requestor that no other refills are due, in the near future, with this provider at this time: Yes The last office visit in the department: 04/02/2024 Does the patient have a future office visit with this provider/department: Yes 05/08/2024 Requested Prescriptions Pending Prescriptions Disp Refills furosemide (LASIX) 40 mg tablet 90 tablet 3 Sig: TAKE ONE TABLET BY MOUTH DAILY AT 9AM Strength: 40 mg Gustavo Wells RN May 04, 2024 10:59 AM documented in this encounter [facility] 05-04-2024 Note Addended by: DALI RICE on: 05/04/2024 04:48 PM Modules accepted: Orders [facility] 05-04-2024 Telephone encounter Note Can you please resent this medication. Last time it was printed and Pt does not know where it is. The patient has been identified by name and date of : Yes Caregiver verified no other encounters exist for this prescription request: Yes Caregiver confirmed with patient/requestor that no other refills are due, in the near future, with this provider at this time: Yes The last office visit in the department: 04/02/2024 Does the patient have a future office visit with this provider/department: Yes 05/08/2024 Requested Prescriptions Pending Prescriptions Disp Refills furosemide (LASIX) 40 mg tablet 90 tablet 3 Sig: TAKE ONE TABLET BY MOUTH DAILY AT 9AM Strength: 40 mg Gustavo Wells RN May 04, 2024 10:59 AM [facility] 05-04-2024 Note HNO ID: [id number] Author: GUSTAVO WELLS RN Service: ? 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 Need a small O2 tanks to care. Initial contact with patient post discharge, spoke to patient. Patient identified by name and . TRANSITION CARE MANAGEMENT INITIAL OUTREACH DOCUMENTATION: 05/04/2024 Date of Outreach: Outreach Attempt 1: Contact Made Date of Discharge 05/03/2024 SUMMARY: -Pt discharged from [facility] on 05/03/24. -Admitted for: Pneumonia Do you have a hospital follow up appointment with your PCP? Appointment on Dr Palacio with 05/08/24. No. Assist patient with follow-up appointment within 1-14 calendar days from discharge date. If patient prefers not to schedule follow-up appointment at this time, notify PCP. MEDICATIONS: Many patients have questions or concerns about their medications once they are home. Were you prescribed any new medications? If yes, what are those medications? Antibiotic, but not sure which one. Prednisone. Pt was restarted on O2 2L at rest and 6L when up. Were you told to hold any medications? No Were any of your medications discontinued? No Do you have any questions about getting or taking your medications? Yes, Script - needs a refill or did not get a prescription written, request refill and forward to LIP. Your discharge instructions/After visit Summary (AVS) are important in guiding you through the recovery process. Is there anything I might help you understand? No Do you have all the necessary equipment and supplies at home? Yes Medical records from recent hospitalization: Care Everywhere [facility] 05-04-2024 History of Present illness Narrative TRANSITION CARE MANAGEMENT (TCM) INITIAL CONTACT [employer] Outreach Provider Action/FYI: Home nebulizer kit and nebulizer solution. Need a small O2 tanks to care. Initial contact with patient post discharge, spoke to patient. Patient identified by name and . TRANSITION CARE MANAGEMENT INITIAL OUTREACH DOCUMENTATION: 05/04/2024 Date of Outreach: Outreach Attempt 1: Contact Made Date of Discharge 05/03/2024 SUMMARY: -Pt discharged from [facility] on 05/03/24. -Admitted for: Pneumonia Do you have a hospital follow up appointment with your PCP? Appointment on Dr Palacio with 05/08/24. No. Assist patient with follow-up appointment within 1-14 calendar days from discharge date. If patient prefers not to schedule follow-up appointment at this time, notify PCP. MEDICATIONS: Many patients have questions or concerns about their medications once they are home. Were you prescribed any new medications? If yes, what are those medications? Antibiotic, but not sure which one. Prednisone. Pt was restarted on O2 2L at rest and 6L when up. Were you told to hold any medications? No Were any of your medications discontinued? No Do you have any questions about getting or taking your medications? Yes, Script - needs a refill or did not get a prescription written, request refill and forward to LIP. Your discharge instructions/After visit Summary (AVS) are important in guiding you through the recovery process. Is there anything I might help you understand? No Do you have all the necessary equipment and supplies at home? Yes Medical records from recent hospitalization: Care Everywhere documented in this encounter [facility] 05-04-2024 Note Patient Outreach (IN TMWS) -------- LEYDA LOPEZ ([id number]) 1960 F Date Time Provider Department 05/04/24 VELVET PALACIO During your visit today, we recorded the following information about you: Gustavo Wells RN 05/04/2024 10:42 AM Addendum TRANSITION CARE MANAGEMENT (TCM) INITIAL CONTACT [employer] Outreach Provider Action/FYI: Home nebulizer kit and nebulizer solution. Need a small O2 tanks to care. Initial contact with patient post discharge, spoke to patient. Patient identified by name and . TRANSITION CARE MANAGEMENT INITIAL OUTREACH DOCUMENTATION: 05/04/2024 Date of Outreach: Outreach Attempt 1: Contact Made Date of Discharge 05/03/2024 SUMMARY: -Pt discharged from [facility] on 05/03/24. -Admitted for: Pneumonia Do you have a hospital follow up appointment with your PCP? Appointment on Dr Palacio with 05/08/24. No. Assist patient with follow-up appointment within 1-14 calendar days from discharge date. If patient prefers not to schedule follow-up appointment at this time, notify PCP. MEDICATIONS: Many patients have questions or concerns about their medications once they are home. Were you prescribed any new medications? If yes, what are those medications? Antibiotic, but not sure which one. Prednisone. Pt was restarted on O2 2L at rest and 6L when up. Were you told to hold any medications? No Were any of your medications discontinued? No Do you have any questions about getting or taking your medications? Yes, Script - needs a refill or did not get a prescription written, request refill and forward to LIP. Your discharge instructions/After visit Summary (AVS) are important in guiding you through the recovery process. Is there anything I might help you understand? No Do you have all the necessary equipment and supplies at home? Yes Medical records from recent hospitalization: Care Everywhere Allergies As of Date: 05/04/2024 Noted Allergy Reaction AMLODIPINE 06/13/2023 14 - Other: See Comments Comments: kale ATIVAN (LORAZEPAM) 08/24/2014 1 - Mental Status Change 11 - Vomiting Comments: mood swings BACLOFEN 06/04/2014 1 - Mental Status Change Comments: angry,mood effect METHOTREXATE 12/20/2011 11 - Vomiting Comments: abdomen pain,vomiting, sbo NADOLOL 02/05/2013 5 - Intolerance Comments: body burning,tingly NEXIUM (ESOMEPRAZOLE MAGNESIUM) 07/15/2015 14 - Other: See Comments Comments: reflux-no relief PENICILLIN G 09/29/2012 8 - GI Upset Comments: patient reports these symptoms after medication was ordered PROPRANOLOL 01/30/2013 5 - Intolerance Comments: fatigue,sleepy Date Reviewed: 04/02/2024 Reviewed by: Dali Rice APRN.PLATE FILLER - Fully Assessed Reason for Visit: Transition Of Care [4074] Prescriptions as of 05/04/2024 - lisinopril (ZESTRIL) 40 mg tablet Take 1 tablet by mouth once daily. - escitalopram oxalate (LEXAPRO) 20 mg tablet Take 1 tablet by mouth once daily. - busPIRone (BUSPAR) 10 mg tablet Take 1 tablet by mouth three times a day. - atorvastatin (LIPITOR) 40 mg tablet TAKE ONE TABLET BY MOUTH DAILY AT 9PM AT BEDTIME - amitriptyline 150 mg tablet Take 1 tablet by mouth daily at bedtime. - SUMAtriptan (IMITREX) 50 mg tablet Take 1 tablet (50 mg) by mouth as needed for migraine headache (see administration instructions). START AT ONSET OF HEADACHE. MAY REPEAT DOSE AFTER 2 HOURS. - pregabalin (LYRICA) 150 mg capsule Take 1 capsule by mouth two times a day for 90 days. - hydrOXYzine HCl (ATARAX) 50 mg tablet Take 1 tablet by mouth every 8 hours as needed for anxiety. - loperamide (IMODIUM) 2 mg cap(s) Take 1 capsule by mouth three times a day as needed. - meloxicam (MOBIC) 15 mg tablet Take 1 tablet by mouth once daily. - traZODone (DESYREL) 50 mg tablet Take 1 tablet by mouth daily at bedtime. - ondansetron orally disintegrating (ZOFRAN ODT) 4 mg disintegrating tablet Take 1 tablet by mouth every 8 hours as needed. - furosemide (LASIX) 40 mg tablet TAKE ONE TABLET BY MOUTH DAILY AT 9AM Strength: 40 mg - tiZANidine (ZANAFLEX) 4 mg tablet Take 1 tablet by mouth every 8 hours as needed. - fluticasone-salmeterol (ADVAIR, WIXELA) 250-50 mcg/dose inhaler INHALE 1 PUFF BY MOUTH DIRECTED TWICE DAILY - potassium chloride ER (KLOR-CON) 20 mEq tablet Take 1 tablet by mouth once daily. - albuterol HFA (PROAIR HFA) 90 mcg/actuation inhaler Inhale 2 Puffs as instructed. - nitroglycerin sublingual (NITROQUICK) 0.4 mg SL tablet Dissolve 0.4 mg under the tongue every 5 minutes as needed for chest pain. - acetaminophen 325 mg cap Take by mouth. - Dexlansoprazole (DEXILANT) 60 mg CpDM TAKE ONE CAPSULE BY MOUTH DAILY AT 9AM - hyoscyamine sublingual (LEVSIN SL) 0.125 mg Dissolve 1 tablet under the tongue three times daily as needed. - ipratropium (ATROVENT) 0.02 % nebulizer solution Use 2.5 mL vi (more content not included)... [facility] 05-03-2024 Note [facility] Medical Records Department [address] [place] [id number] Discharge Summary 05/03/24 1459 MR#: [id number] Acct: [id number] Name: LEYDA LOPEZ Rep #: [id number] : 1960 63 From: Himanshu Aldana MD PCP: SHMUEL PAGAN Status:ADM IN Location: [place] [address] Providers Date of Admission: 05/01/24 Date of Discharge: 05/03/24 Primary Care Physician: SHMUEL PAGAN Reason For Visit: COPD EXACERBATION Diagnosis Discharge Diagnosis (1) COPD exacerbation: Status: Chronic Code(s): J44.1 - Chronic obstructive pulmonary disease with (acute) exacerbation Plan 63-year-old female with a history of COPD presented to the hospital with concerns regarding worsening shortness of breath in the setting of running out of her oxygen, with imaging findings of bilateral pulmonary infiltrates concerning for PNA, she is at present receiving treatment on the lines of acute exacerbation of COPD with steroids as well as antibiotics. Presently her oxygen requirement is at her baseline with 2 L of nasal cannula. #Acute on chronic respiratory failure #COPD exacerbation #Suspected pneumonia -Continue oxygen via nasal cannula 2 mL/minute [home dose] -Suitable for home discharge, complete 5 days of steroid therapy with prednisone 40 mg for 2 days after discharge -Case management evaluation for home oxygen therapy, will be available for her at the time of discharge -Switch to oral azithromycin -Discontinue ceftriaxone #Migraines -No concerns at this time -Continue with home sumatriptan -Start Tylenol as needed #CHF -Very low concerns at this time -Will can follow-up outpatient if needed for the same #Marijuana use -Continues to smoke, not motivated at this time to discuss quitting options #VTE prophylaxis -Continue enoxaparin #Hypertension: Continue home medications #Bipolar disorder -Continue home medications Medications at Discharge Home Medications albuterol sulfate 90 mcg/actuation aerosol inhaler (ProAir HFA) 2 puff inhalation Q4H PRN PRN Sob /Or Wheezing 07/26/14 nitroglycerin 0.4 mg sublingual tablet 0.4 mg sublingual PRN PRN CHEST PAIN 06/04/17 amitriptyline 100 mg tablet 150 mg PO QHS depresssion 10/10/22 meloxicam 7.5 mg tablet 15 mg PO DAILY pain 10/10/22 sumatriptan succinate 50 mg tablet 50 mg PO PRN PRN migraine headache 10/10/22 ondansetron 4 mg disintegrating tablet 4 mg PO Q8H PRN PRN Nausea #14 tabs 11/14/22 atorvastatin 40 mg tablet 40 mg PO QHS Cholesterol 05/11/23 buspirone 5 mg tablet 10 mg PO TID Anxiety 05/11/23 dexlansoprazole 60 mg capsule,biphase delayed release 60 mg PO DAILY GERD 05/11/23 escitalopram oxalate 20 mg tablet 20 mg PO DAILY depression 05/11/23 fluticasone propionate 50 mcg/actuation nasal spray,suspension 2 spray intranasal DAILY allergies 05/11/23 hydroxyzine HCl 50 mg tablet 50 mg PO TID PRN Anxiety 05/11/23 pregabalin 25 mg capsule 150 mg PO BID Nerve pain 05/11/23 tizanidine 4 mg tablet 4 mg PO Q8H PRN PRN muscle spasm 05/11/23 acetaminophen 325 mg tablet 1,000 mg (3.0769 x 325 mg) PO Q8H PRN PRN fever/pain 1-10 #0 tabs 05/20/23 lisinopril 40 mg tablet 40 mg PO DAILY blood pressure 06/04/23 furosemide 40 mg tablet 40 mg PO BIDCM water pill #120 tabs 06/06/23 guaifenesin 1,200 mg tablet, extended release 12 hr (Mucus Relief ER) 1,200 mg PO BID mucus #20 tabs 06/06/23 potassium chloride 20 mEq tablet,extended release(part/cryst) 20 meq PO DAILYCM diuretic use #30 tabs 06/06/23 trazodone 50 mg tablet 50 mg PO QHS insomnia 05/01/24 azithromycin 500 mg tablet 500 mg PO DAILY 2 days #2 tabs 05/03/24 prednisone 20 mg tablet 40 mg (2 x 20 mg) PO DAILY #4 tabs 05/03/24 Hospital Course Operations None Procedures None Summary of Care Provided Hospital Course: Patient is admitted for worsening shortness of breath in the setting of running out of her oxygen. She was managed on the lines of acute exacerbation of COPD, and has had significant improvement in her shortness of breath. At the time of discharge she is requiring only 2 L of oxygen which is her baseline dose. She is encouraged to follow-up outpatient. Physical Exam Const alert and oriented x3 General Appearance: cooperative and comfortable HEENT normocephalic and head/scalp atraumatic Eyes PERRL Neck no lymphadenopathy Resp normal respiratory effort Resp Narrative: No adventitious sounds Cardio regular rate and regular rhythm GI normal to inspection, nondistended, normoactive bowel sounds Extremity normal to inspection Skin no rashes or lesions noted Neuro oriented x3 and moves all extremities Weight / BMI Weight Weight: 145 lb 15.136 oz Body Mass Index (BMI) 31.6 ABG / Lab / Microbiology Data 05/02/24 05:55 05/02/24 05:55 Microbiology: Microbiology 05/02/24 21:05 Sputum, Ex (more content not included)... [facility] 05-01-2024 Evaluation note Diagnosis Onset Date Resolution Migraines acute May 01, 2024 4:42pm Acute on chronic hypoxic respiratory failure resolved May 01, 2 025 4:42pm CHF exacerbation resolved May 01, 2024 4:42pm COPD exacerbation resolved Februar y 2024 4:42pm Pneumonia resolved May 01, 2024 4:42pm Small bowel obstruction acute M ay 2024 6:23pm [facility] Work Phone: 1(151) 511-564802-21-2025 Telephone encounter Note* Telephone Encounter - Homa Martinez RN - 04/24/2024 11:34 AM EST The patient has been identified by name and date of : Yes Caregiver verified no other encounters exist for this prescription request: Yes Caregiver confirmed with patient/requestor that no other refills are due, in the near future, with this provider at this time: Yes The last office visit in the department: 04/02/2024 Does the patient have a future office visit with this provider/department: Yes 06/29/2024 Requested Prescriptions Pending Prescriptions Disp Refills lisinopril (ZESTRIL) 40 mg tablet 30 tablet 5 Sig: Take 1 tablet by mouth once daily. escitalopram oxalate (LEXAPRO) 20 mg tablet 90 tablet 3 Sig: Take 1 tablet by mouth once daily. Homa Martinez RN April 24, 2024 11:36 AM [facility]02-21-2025 Miscellaneous Notes* Telephone Encounter - Homa Martinez RN - 04/24/2024 11:34 AM EST The patient has been identified by name and date of : Yes Caregiver verified no other encounters exist for this prescription request: Yes Caregiver confirmed with patient/requestor that no other refills are due, in the near future, with this provider at this time: Yes The last office visit in the department: 04/02/2024 Does the patient have a future office visit with this provider/department: Yes 06/29/2024 Requested Prescriptions Pending Prescriptions Disp Refills lisinopril (ZESTRIL) 40 mg tablet 30 tablet 5 Sig: Take 1 tablet by mouth once daily. escitalopram oxalate (LEXAPRO) 20 mg tablet 90 tablet 3 Sig: Take 1 tablet by mouth once daily. Homa Martinez RN April 24, 2024 11:36 AM [facility] Telephone encounter Note * Telephone Encounter - Lilliana Pruitt LPN - 04/24/2024 10:58 AM EST Paula with [facility] [phone] calling to have 3 prescriptions sent to them. Records show all prescriptions are going thru [facility]. Left a message for pt to call the office to confirm they are zhao going to [facility]. Prescriptions : Lisinopril Hydroxyzine Tizanidine Lilliana Pruitt LPN [facility]02-21-2025 Miscellaneous Notes* Telephone Encounter - Lilliana Pruitt LPN - 04/24/2024 10:58 AM EST Paula with [facility] [phone] calling to have 3 prescriptions sent to them. Records show all prescriptions are going thru [facility]. Left a message for pt to call the office to confirm they are zhao going to [facility]. Prescriptions : Lisinopril Hydroxyzine Tizanidine Lilliana Pruitt LPN documented in [facility] encounterMer[facility] Telephone encounter Note * Telephone Encounter - Lilliana Pruitt LPN - 04/16/2024 11:24 AM EST The patient has been identified by name and date of : Yes Caregiver verified no other encounters exist for this prescription request: Yes Caregiver confirmed with patient/requestor that no other refills are due, in the near future, with this provider at this time: Yes The last office visit in the department: 04/02/2024 Does the patient have a future office visit with this provider/department: Yes 06/29/2024 Requested Prescriptions Pending Prescriptions Disp Refills busPIRone (BUSPAR) 10 mg tablet 90 tablet 1 Sig: Take 1 tablet by mouth three times a day. Lilliana Pruitt LPN April 16, 2024 11:28 AM [facility]02-13-2025 Miscellaneous Notes* Telephone Encounter - Lilliana Pruitt LPN - 04/16/2024 11:24 AM EST The patient has been identified by name and date of : Yes Caregiver verified no other encounters exist for this prescription request: Yes Caregiver confirmed with patient/requestor that no other refills are due, in the near future, with this provider at this time: Yes The last office visit in the department: 04/02/2024 Does the patient have a future office visit with this provider/department: Yes 06/29/2024 Requested Prescriptions Pending Prescriptions Disp Refills busPIRone (BUSPAR) 10 mg tablet 90 tablet 1 Sig: Take 1 tablet by mouth three times a day. Lilliana Pruitt LPN April 16, 2024 11:28 AM documented in this encounterMer[facility]02-[facility]25 Telephone encounter Note * Telephone Encounter - Geoffrey Barboza RN - 04/16/2024 10:04 AM EST Pt returned call and given provider's message below with verbalized understanding. Pt sounds relaxed today. Pt was not aware she has refills at the pharmacy on buspar and hydroxyzine. Patient will call the pharmacy for refills, and she will try to contact psychiatrist again. [facility]02-13-2025 Miscellaneous Notes* Telephone Encounter - Geoffrey Barboza RN - 04/16/2024 10:04 AM EST Pt returned call and given provider's message below with verbalized understanding. Pt sounds relaxed today. Pt was not aware she has refills at the pharmacy on buspar and hydroxyzine. Patient will call the pharmacy for refills, and she will try to contact psychiatrist again. * Telephone Encounter - Cesia Steele LPN - 04/16/2024 9:20 AM EST Called and left message for patient to call office back. Cesia Steele LPN April 16, 2024 9:20 AM * Telephone Encounter - Dali Rice APRN.CNP - 04/16/2024 7:50 AM EST Hydroxyzine was sent in. Is she taking this and her buspar as ordered? There should be someone covering for her psychiatrist. Thank you Dali Rice APRN.CNP * Telephone Encounter - Geoffrey Barboza RN - 04/15/2024 2:08 PM EST Patient phoned asking if Dali can send medication to her pharmacy for her anxiety. Advised patient Dali did sent medication for her anxiety to [facility]. Patient started crying stating she can't smoke her weed anymore because she is on probation. Reports she has a marijuana license through the state but she's not allowed to smoke it anymore. Reports Dr. Ham wants her to do drug therapy. States she can't call Dr. Ham b/c she is out of office this week. Patient reports her daughter was taken away from her-reports they took her daugher out of the home and put her in a chcf, because patient's boyfriend was doing drugs and getting aggressive. Offered appt to patient. Patient declined. Patient states she just wanted Dali to know all of this. documented in this encounterMer[facility] Telephone encounter Note * Telephone Encounter - Cesia Steele LPN - 04/16/2024 9:20 AM EST Called and left message for patient to call office back. Cesia Steele LPN April 16, 2024 9:20 AM [facility]02-13-2025 Telephone encounter Note* Telephone Encounter - Dali Rice APRN.CNP - 04/16/2024 7:50 AM EST Hydroxyzine was sent in. Is she taking this and her buspar as ordered? There should be someone covering for her psychiatrist. Thank you Dali Rice APRN.CNP [facility]02-12-2025 Telephone encounter Note* Telephone Encounter - Geoffrey Barboza RN - 04/15/2024 2:08 PM EST Patient phoned asking if Dali can send medication to her pharmacy for her anxiety. Advised patient Dali did sent medication for her anxiety to [facility]. Patient started crying stating she can't smoke her weed anymore because she is on probation. Reports she has a marijuana license through the state but she's not allowed to smoke it anymore. Reports Dr. Ham wants her to do drug therapy. States she can't call Dr. Ham b/c she is out of office this week. Patient reports her daughter was taken away from her-reports they took her daugher out of the home and put her in a chcf, because patient's boyfriend was doing drugs and getting aggressive. Offered appt to patient. Patient declined. Patient states she just wanted Dali to know all of this. [facility]02-10-2025 Telephone encounter Note* Telephone Encounter - Ruth Tobar RN - 04/13/2024 2:42 PM EST Patient requesting current medication list be sent to Dr. Hampton at [facility] in [place]. Patient is being seen by this provider. Faxed as requested to FAX #: [phone]. Ruth Tobar RN [facility]02-10-2025 Miscellaneous Notes* Telephone Encounter - Ruth Tobar RN - 04/13/2024 2:42 PM EST Patient requesting current medication list be sent to Dr. Hampton at [facility] in [place]. Patient is being seen by this provider. Faxed as requested to FAX #: [phone]. Ruth Tobar RN documented in this encounterMer[facility]01-30-2025 NoteHNO ID: [id number] Author: DALI RICE APRN.PLATE FILLER Service: ? Author Type: Nurse Practitioner Type: Progress Notes Filed: 04/02/2024 12:56 Note Text: CC: Patient presents with: Recheck: Medication follow up HPI Leyda Lopez is a 63 year old female who presents today for follow up. Is having a lot of emotional and mental stress which she is going to start seeing psychiatry next week. Has had some legal issues that has further her from her daughter and feels this is worsening all of her symptoms. Along with this is reporting she is not allowed to use her medical marijuana which is not prescribed by this office, she feels without this her migraines and chronic pain from fibromyalgia are worsening. Migraines: Is having headaches daily. Uses tylenol daily and imitrex if it is available. 1 imitrex will resolve her migraine. Is on amitriptyline to help prevent these but it isn't helping anymore Denies head injury, confusion, weakness, or recent infection. HTN: Ms. Lopez denies headache, chest pain, palpitations, dyspnea, and peripheral edema. Patient denies any side effects of her medication(s) and is compliant with their regimen. She does not check BP's generally. Leyda denies regular aerobic exercise. She watches her diet for sodium, low fat and low cholesterol most of the time. Last 3 Encounter BP Readings: Date: BP: 04/02/2024 136/82 12/11/2023 128/80 11/12/2023 174/106 REVIEW OF SYSTEMS General: no fevers, no chills, no night sweats, no recurrent infections, no change in appetite, no change in energy, and no significant changes in weight Respiratory: no cough, no wheezing, no shortness of breath, no hemoptysis Cardiovascular: no chest pain, no chest pressure, no palpitations, and no swelling Neurologic: No weakness, numbness, dizziness, memory loss, syncope. PAST MEDICAL HISTORY Diagnosis Date Abdominal pain, right upper quadrant ADD (attention deficit disorder) Seeing psychiatry Anemia, unspecified Asthma Back pain chronic-Seeing Dr. Blankenship Bipolar affective disorder ([facility]) Chronic right shoulder pain Seeing Dr. Molina Closed dislocation of tarsometatarsal (joint) 01/18/2011 COPD (chronic obstructive pulmonary disease) ([facility]) Depressive disorder, not elsewhere classified 03/22/2005 Disorder of bone and cartilage, unspecified 02/09/2008 Distal radius fracture 01/05/2011 Dysuria Fibromyalgia GERD (gastroesophageal reflux disease) IBS (irritable bowel syndrome) Mitral regurgitation Severe Neck pain chronic-takes vicodin for this NSTEMI (non-ST elevated myocardial infarction) ([facility]) Seeing Dr. Hutton Other and unspecified hyperlipidemia Panic disorder without agoraphobia 03/22/2005 PMR (polymyalgia rheumatica) ([facility]) RA (rheumatoid arthritis) ([facility]) Unspecified essential hypertension 03/22/2005 PAST SURGICAL HISTORY Procedure Laterality Date COLONOSCOPY FLX DX W/COLLJ SPEC WHEN PFRMD 01/23/08 Normal COLONOSCOPY FLX DX W/COLLJ SPEC WHEN PFRMD 01/09/2012 Colonoscopy DIAGNOSTIC ARTHROSCOPY SHOULDER +- SYNOVIAL BX Right 04/10/2017 Right shoulder arthroscopy with open SAD and rotator cuff repair EGD TRANSORAL BIOPSY SINGLE/MULTIPLE 01/23/08 Minimal antral gastritis HEART CATHETERIZATION 01/2016 no intervention Partial hysterectomy still has ovaries PAST SURGICAL HISTORY OF 02/2016 total teeth extraction RMVL LENS MATERIAL PHACOFRAGMENTATION ASPIR 12/2010 Cataract Extraction RPR UMBILICAL HRNA 5 YRS/> REDUCIBLE 12/04/2016 Hernia repair, umbilical >5yr SURGICAL ARTHROSCOPY SHOULDER W/ROTATOR CUFF RPR Right 01/01/2018 Right shoulder arthroscopy SAD, Acromioplasty, debridement glenohumeral joint, biceps tenotomy, RCR, superior capsular reconstruction ALLERGIES Amlodipine, Ativan [Lorazepam], Baclofen, Methotrexate, Nadolol, Nexium [Esomeprazole Magnesium], Penicillin G, and Propranolol MEDICATIONS SUMAtriptan (IMITREX) 50 mg tablet Take 1 tablet (50 mg) by mouth as needed for migraine headache (see administration instructions). START AT ONSET OF HEADACHE. MAY REPEAT DOSE AFTER 2 HOURS. hydrOXYzine HCl (ATARAX) 50 mg tablet Take 1 tablet by mouth every 8 hours as needed for anxiety. loperamide (IMODIUM) 2 mg cap(s) Take 1 capsule by mouth three times a day as needed. meloxicam (MOBIC) 15 mg tablet Take 1 tablet by mouth once daily. traZODone (DESYREL) 50 mg tablet Take 1 tablet by mouth daily at bedtime. pregabalin (LYRICA) 100 mg capsule Take 1 capsule by mouth two times a day for 90 days. fluticasone (FLONASE) 50 mcg/actuation nasal spray INSTILL 2 SPRAYS IN EACH NOSTRIL DAILY RINSE MOUTH AFTER USE (BULK) ondansetron orally disintegrating (ZOFRAN ODT) 4 mg disintegrating tablet Take 1 tablet by mouth every 8 hours as needed. furosemide (LASIX) 40 mg tablet TAKE ONE TABLET BY MOUTH DAILY AT 9AM Strength: 40 mg tiZANidine (ZANAFLEX) 4 mg tablet Take 1 tablet by mouth every 8 hours as (more content not included)...[facility]01-30-2025 History of Present illness Narrative* Dali Rice APRN.PLATE FILLER - 04/02/2024 11:04 AM EST CC: Patient presents with: Recheck: Medication follow up HPI Leyda Lopez is a 63 year old female who presents today for follow up. Is having a lot of emotional and mental stress which she is going to start seeing psychiatry next week. Has had some legal issues that has further her from her daughter and feels this is worsening all of her symptoms. Along with this is reporting she is not allowed to use her medical marijuana which is not prescribed by this office, she feels without this her migraines and chronic pain from fibromyalgia are worsening. Migraines: Is having headaches daily. Uses tylenol daily and imitrex if it is available. 1 imitrex will resolve her migraine. Is on amitriptyline to help prevent these but it isn't helping anymore Denies head injury, confusion, weakness, or recent infection. HTN: Ms. Lopez denies headache, chest pain, palpitations, dyspnea, and peripheral edema. Patient denies any side effects of her medication(s) and is compliant with their regimen. She does not check BP's generally. Leyda denies regular aerobic exercise. She watches her diet for sodium, low fatand low cholesterol most of the time. Last 3 Encounter BP Readings: Date: BP: 04/02/2024 136/82 12/11/2023 128/80 11/12/2023 174/106 REVIEW OF SYSTEMS General: no fevers, no chills, no night sweats, no recurrent infections, no change in appetite, no change in energy, and no significant changes in weight Respiratory: no cough, no wheezing, no shortness of breath, no hemoptysis Cardiovascular: no chest pain, no chest pressure, no palpitations, and no swelling Neurologic: No weakness, numbness, dizziness, memory loss, syncope. PAST MEDICAL HISTORY Diagnosis Date Abdominal pain, right upper quadrant ADD (attention deficit disorder) Seeing psychiatry Anemia, unspecified Asthma Back pain chronic-Seeing Dr. Blankenship Bipolar affective disorder ([facility]) Chronic right shoulder pain Seeing Dr. Molina Closed dislocation of tarsometatarsal (joint) 01/18/2011 COPD (chronic obstructive pulmonary disease) ([facility]) Depressive disorder, not elsewhere classified 03/22/2005 Disorder of bone and cartilage, unspecified 02/09/2008 Distal radius fracture 01/05/2011 Dysuria Fibromyalgia GERD (gastroesophageal reflux disease) IBS (irritable bowel syndrome) Mitral regurgitation Severe Neck pain chronic-takes vicodin for this NSTEMI (non-ST elevated myocardial infarction) ([facility]) Seeing Dr. Hutton Other and unspecified hyperlipidemia Panic disorder without agoraphobia 03/22/2005 PMR (polymyalgia rheumatica) ([facility]) RA (rheumatoid arthritis) ([facility]) Unspecified essential hypertension 03/22/2005 PAST SURGICAL HISTORY Procedure Laterality Date COLONOSCOPY FLX DX W/COLLJ SPEC WHEN PFRMD 01/23/08 Normal COLONOSCOPY FLX DX W/COLLJ SPEC WHEN PFRMD 01/09/2012 Colonoscopy DIAGNOSTIC ARTHROSCOPY SHOULDER +- SYNOVIAL BX Right 04/10/2017 Right shoulder arthroscopy with open SAD and rotator cuff repair EGD TRANSORAL BIOPSY SINGLE/MULTIPLE 01/23/08 Minimal antral gastritis HEART CATHETERIZATION 01/2016 no intervention Partial hysterectomy still has ovaries PAST SURGICAL HISTORY OF 02/2016 total teeth extraction RMVL LENS MATERIAL PHACOFRAGMENTATION ASPIR 12/2010 Cataract Extraction RPR UMBILICAL HRNA 5 YRS/> REDUCIBLE 12/04/2016 Hernia repair, umbilical >5yr SURGICAL ARTHROSCOPY SHOULDER W/ROTATOR CUFF RPR Right 01/01/2018 Right shoulder arthroscopy SAD, Acromioplasty, debridement glenohumeral joint, biceps tenotomy, RCR, superior capsular reconstruction ALLERGIES Amlodipine, Ativan [Lorazepam], Baclofen, Methotrexate, Nadolol, Nexium [Esomeprazole Magnesium], Penicillin G, and Propranolol MEDICATIONS SUMAtriptan (IMITREX) 50 mg tablet Take 1 tablet (50 mg) by mouth as needed for migraine headache (see administration instructions). START AT ONSET OF HEADACHE. MAY REPEAT DOSE AFTER 2 HOURS. hydrOXYzine HCl (ATARAX) 50 mg tablet Take 1 tablet by mouth every 8 hours as needed for anxiety. loperamide (IMODIUM) 2 mg cap(s) Take 1 capsule by mouth three times a day as needed. meloxicam (MOBIC) 15 mg tablet Take 1 tablet by mouth once daily. traZODone (DESYREL) 50 mg tablet Take 1 tablet by mouth daily at bedtime. pregabalin (LYRICA) 100 mg capsule Take 1 capsule by mouth two times a day for 90 days. fluticasone (FLONASE) 50 mcg/actuation nasal spray INSTILL 2 SPRAYS IN EACH NOSTRIL DAILY RINSE MOUTH AFTER USE (BULK) ondansetron orally disintegrating (ZOFRAN ODT) 4 mg disintegrating tablet Take 1 tablet by mouth every 8 hours as needed. furosemide (LASIX) 40 mg tablet TAKE ONE TABLET BY MOUTH DAILY AT 9AM Strength: 40 mg tiZANidine (ZANAFLEX) 4 mg tablet Take 1 tablet by mouth every 8 hours as needed. fluticasone-salmeterol (ADVAIR, WIXELA) 250-50 mcg/dose inhaler INHALE 1 PUFF BY MOUTH DIRECTED TWICE DAILY busPIRone (BUSPAR) 10 mg tablet Take 1 tablet by mouth three times a day. potassium chloride ER (KLOR-CON) 20 mEq tablet Take 1 tablet by mouth once daily. lisinopril (ZESTRIL) 40 mg tablet Take 1 tablet by mouth once daily. atorvastatin (LIPITOR) 40 mg tablet TAKE ONE TABLET BY MOUTH DAILY AT 9PM AT BEDTIME escitalopram oxalate (LEXAPRO) 20 mg tablet Take 1 tablet by mouth once daily. albuterol HFA (PROAIR HFA) 90 mcg/actuation inhaler Inhale 2 Puffs as instructed. nitroglycerin sublingual (NITROQUICK) 0.4 mg SL tablet Dissolve 0.4 mg under the tongue every 5 minutes as needed for chest pain. acetaminophen 325 mg cap Take by mouth. Dexlansoprazole (DEXILANT) 60 mg CpDM TAKE ONE CAPSULE BY MOUTH DAILY AT 9AM hyoscyamine sublingual (LEVSIN SL) 0.125 mg Dissolve 1 tablet under the tongue three times daily asneeded. ipratropium (ATROVENT) 0.02 % nebulizer solution Use 2.5 mL via nebulizer four times daily as needed for Wheezing/Shortness of Breath. Use over 5-15minutes. Dx:J45.40 Cholecalciferol, Vitamin D3, 2,000 unit tab Take 2 tablets by mouth once daily. FAMILY HISTORY Problem Relation Age of Onset COPD Mother Breast Cancer Mother Heart Father DC COPD Father other (Pulmonary fibrosis) Father Social History Tobacco Use Smoking status: Former Current packs/day: 0.00 Average packs/day: 0.5 packs/day for 20.0 years (10.0 ttl pk-yrs) Types: Cigarettes Start date: 1973 Quit date: 03/04/1989 Years since quittin.1 Smokeless tobacco: Never Tobacco comments: Both parents smoked in childhood home. Lived with smoker as adult. Vaping Use Vaping status: Never Used Substance Use Topics Alcohol use: No Drug use: No PHYSICAL EXAM BP 136/82 Pulse 76 Resp 16 Wt 64.4 kg (142 lb) SpO2 95% BMI 30.20 kg/m General Appearance: well appearing, in no acute distress, alert Eyes:conjunctiva pink and moist, no icterus, sclera white, non-injected Lungs: Lungs clear to auscultation. No wheezing, rhonchi, rales. Heart: RRR without murmur, gallop, or rubs. No ectopy Neurological: Gait at baseline for patient. mental status intact, patient still with difficulty keeping eye contact with constant movement of her gaze and shifting of her head. Health maintenance reviewed with patient: BP Controlled (<130/80) Never done Pneumococcal Vaccine: 50+(2 of 2 - PCV) due on 01/28/2013 Mammogram Screening due on 08/06/2017 Colorectal Cancer Screening due on 01/08/2022 Alpha-1 Antitrypsin Deficiency Screening due on 05/01/2024 RSV Vaccine(1 - Risk 60-74 years 1-dose series) due on 05/01/2024 Shingrix Vaccine(1 of 2) due on 05/01/2024 Annual PCP Team Chronic Disease Visit due on 12/10/2024 Serum Creatinine due on 12/25/2024 Diabetes Screening due on 12/25/2026 Lipid Screening due on 02/12/2028 DTaP,Tdap,Td Vaccine(3 - Td or Tdap) due on 07/22/2028 Spirometry Completed Influenza Vaccine Completed Hepatitis C Screening Completed HIV Screening Completed Cervical Cancer Screening Discontinued Covid-19 Vaccine Discontinued DATA REVIEWED: No new labs ASSESSMENT/PLAN: 1. Headaches - ICD9: 784.0, ICD10: R51.9 (primary diagnosis) Probable migraines. With her emotions during visit. This is difficult to really assess fully at this time and feel the anxiety and crying is worsening her chronic migraines at this time. Will increase her amitriptyline and have her continue with plans to see psychiatry Go to Er for worsening pain, confusion, weakness, or any other urgent concern. 2. Pain syndrome, chronic - ICD9: 338.4, ICD10: G89.4 Increasing lyrica as she no longer is utilizing marijuana to help with her pain. She needs to reschedule with her pain mgmt group as well. Also, the increase in lyrica may help with her anxiety as well - PREGABALIN 150 MG CAPSULE 3. Fibromyalgia - ICD9: 729.1, ICD10: M79.7 As above 4. Essential hypertension - ICD9: 401.9, ICD10: I10 - Controlled - Continue current medications - Recommend home blood pressure monitoring, to bring results to next visit - Encouraged sodium restriction, DASH or Mediterranean diet - Recommend regular aerobic exercise 5. Mixed hyperlipidemia - ICD9: 272.2, ICD10: E78.2 Not discussed today, refill needed. - ATORVASTATIN 40 MG TABLET Prescription instructions reviewed with patient as applicable. Potential red flag symptoms discussed with the patient. Reviewed appropriate action plan to take if red flag symptoms occur. Patient agreeable to treatment plan. Dali Rice APRN.CNP documented [facility] Telephone encounter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 Here today for right middle finger locking. Started 1 week ago. She is right hand dominant. ASSESSMENT: M65.331 Trigger middle finger of right hand (primary encounter diagnosis) PLAN: She would like to go with a cortisone injection today and she may consider surgery down the line if symptoms do not improve. OBJECTIVE: Ms. Leyda Lopez is a pleasant 63 year old in no apparent distress. Gen:There were no vitals taken for this visit. nl development, non obese, no deformities ENT: Normocephalic, normal hearing, moist mucosa CV: Pulses:Radial= 2+ and symmetric, capillary refill < 2 secs, no peripheral edema/varicosities Skin: no rash, bruising or lesions. Good turgor. Psych: cooperative and appropriate, alert and oriented x 3, good mood and affect. Musculoskeletal: Tender to palpation at the A1 rafal site of the finger on the right. Clicking and catching of the finger as well. Additional Injections: R long A1 for trigger finger Informed Consent Consent Obtained: Verbal [place] Protocol A moment to CARE was completed. SIGN IN Sign in communication not applicable due to emergent procedure. Personnel directly involved with the procedure wore the appropriate PPE. Special Equipment: N/A Patient/Surrogate Stated/Verified: Patient name, Date of , Relevant allergies and Intended procedure TIME OUT Intended patient and procedure match the source document(s). Consent documented and matches the intended procedure. Relevant labs, photos, and/or imaging studies have been reviewed. Correct side/site marked and visible. Medications required for procedure verified. No fire risk assessment and interventions applicable. No implant(s) inserted. 02/10/2024 9:01 AM The procedure site was prepped in the usual sterile fashion. Medications: 3 mg betamethasone acetate-betamethasone sodium phosphate 6 mg/mL Anesthetics: 0.5 mL lidocaine (PF) 10 mg/mL (1 %) Outcome: tolerated well, no immediate complications Post-injection instructions were reviewed with the patient and the patient voiced understanding of these instructions. SIGN OUT No specimen collected. No instruments, equipment or retained foreign bodies applicable. Post-procedure follow-up management communicated and Plan of Care Visit completed when applicable Imaging: Deferred Supporting Subjective Information Below: Past Surgical History: PAST SURGICAL HISTORY Procedure Laterality Date COLONOSCOPY FLX DX W/COLLJ SPEC WHEN PFRMD 01/23/08 Normal COLONOSCOPY FLX DX W/COLLJ SPEC WHEN PFRMD 01/09/2012 Colonoscopy DIAGNOSTIC ARTHROSCOPY SHOULDER +- SYNOVIAL BX Right 04/10/2017 Right shoulder arthroscopy with open SAD and rotator cuff repair EGD TRANSORAL BIOPSY SINGLE/MULTIPLE 01/23/08 Minimal antral gastritis HEART CATHETERIZATION 01/2016 no intervention Partial hysterectomy still has ovaries PAST SURGICAL HISTORY OF 02/2016 total teeth extraction RMVL LENS MATERIAL PHACOFRAGMENTATION ASPIR 12/2010 Cataract Extraction RPR UMBILICAL HRNA 5 YRS/> REDUCIBLE 12/04/2016 Hernia repair, umbilical >5yr SURGICAL ARTHROSCOPY SHOULDER W/ROTATOR CUFF RPR Right 01/01/2018 Right shoulder arthroscopy SAD, Acromioplasty, debridement glenohumeral joint, biceps tenotomy, RCR, superior capsular reconstruction Medications: Current Outpatient Medications Medication Sig loperamide (IMODIUM) 2 mg cap(s) Take 1 capsule by mouth three times a day as needed. SUMAtriptan (IMITREX) 50 mg tablet Take 1 tablet (50 mg) by mouth as needed for migraine headache (see administration instructions). START AT ONSET OF HEADACHE. MAY REPEAT DOSE AFTER 2 HOURS. tiZANidine (ZANAFLEX) 4 mg tablet Take 1 tablet by mouth every 8 hours as needed. fluticasone-salmeterol (ADVAIR, WIXELA) 250-50 mcg/dose inhaler INHALE 1 PUFF BY MOUTH DIRECTED TWICE DAILY busPIRone (BUSPAR) 10 mg tablet Take 1 tablet by mouth three times a day. potassium chloride ER (KLOR-CON) 20 mEq tablet Take 1 tablet by mouth once daily. pregabalin (LYRICA) 100 mg capsule Take 1 capsule by mouth two times a day for 90 days. lisinopril (ZESTRIL) 40 mg tablet Take 1 tablet by mouth once daily. atorvastatin (LIPITOR) 40 mg tablet TAKE ONE TABLET BY MOUTH DAILY AT 9PM AT BEDTIME furosemide (LASIX) 40 mg tablet TAKE ONE TABLET BY MOUTH DAILY AT 9AM Strength: 40 mg traZODone (DESYREL) 50 mg tablet Take 1 tablet by mouth daily at bedtime. hydrOXYzine HCl (ATARAX) 50 mg tablet Take 1 tablet by mouth every 8 hours as (more content not included)...[facility]12-09-2024 History of Present illness Narrative* Sebas Molina MD - 02/10/2024 8:39 AM EST Associated Order(s): Additional Injections: R long A1 Post-Procedure Diagnose(s): Trigger middle finger of right hand Sebas Molina MD Department of Orthopaedics Orthopaedics [address] [facility] [address] Dept: [phone] Dept February 10, 2024 CHIEF COMPLAINT: Established Patient and Follow Up of the Right Hand HPI Patient is 5 month post visit Right thumb CMC arthritis. Here today for right middle finger locking. Started 1 week ago. She is right hand dominant. ASSESSMENT: M65.331 Trigger middle finger of right hand (primary encounter diagnosis) PLAN: She would like to go with a cortisone injection today and she may consider surgery down the line ifsymptoms do not improve. OBJECTIVE: Ms. Leyda Lopez is a pleasant 63 year old in no apparent distress. Gen:There were no vitals taken for this visit. nl development, non obese, no deformities ENT: Normocephalic, normal hearing, moist mucosa CV: Pulses:Radial= 2+ and symmetric, capillary refill < 2 secs, no peripheral edema/varicosities Skin: no rash, bruising or lesions. Good turgor. Psych: cooperative and appropriate, alert and oriented x 3, good mood and affect. Musculoskeletal: Tender to palpation at the A1 rafal site of the finger on the right. Clicking and catching of the finger as well. Additional Injections: R long A1 for trigger finger Informed Consent Consent Obtained: Verbal [place] Protocol A moment to CARE was completed. SIGN IN Sign in communication not applicable due to emergent procedure. Personnel directly involved with the procedure wore the appropriate PPE. Special Equipment: N/A Patient/Surrogate Stated/Verified: Patient name, Date of , Relevant allergies and Intended procedure TIME OUT Intended patient and procedure match the source document(s). Consent documented and matches the intended procedure. Relevant labs, photos, and/or imaging studies have been reviewed. Correct side/site marked and visible. Medications required for procedure verified. No fire risk assessment and interventions applicable. No implant(s) inserted. 02/10/2024 9:01 AM The procedure site was prepped in the usual sterile fashion. Medications: 3 mg betamethasone acetate-betamethasone sodium phosphate 6 mg/mL Anesthetics: 0.5 mL lidocaine (PF) 10 mg/mL (1 %) Outcome: tolerated well, no immediate complications Post-injection instructions were reviewed with the patient and the patient voiced understanding of these instructions. SIGN OUT No specimen collected. No instruments, equipment or retained foreign bodies applicable. Post-procedure follow-up management communicated and Plan of Care Visit completed when applicable Imaging: Deferred Supporting Subjective Information Below: Past Surgical History: PAST SURGICAL HISTORY Procedure Laterality Date COLONOSCOPY FLX DX W/COLLJ SPEC WHEN PFRMD 01/23/08 Normal COLONOSCOPY FLX DX W/COLLJ SPEC WHEN PFRMD 01/09/2012 Colonoscopy DIAGNOSTIC ARTHROSCOPY SHOULDER +- SYNOVIAL BX Right 04/10/2017 Right shoulder arthroscopy with open SAD and rotator cuff repair EGD TRANSORAL BIOPSY SINGLE/MULTIPLE 01/23/08 Minimal antral gastritis HEART CATHETERIZATION 01/2016 no intervention Partial hysterectomy still has ovaries PAST SURGICAL HISTORY OF 02/2016 total teeth extraction RMVL LENS MATERIAL PHACOFRAGMENTATION ASPIR 12/2010 Cataract Extraction RPR UMBILICAL HRNA 5 YRS/> REDUCIBLE 12/04/2016 Hernia repair, umbilical >5yr SURGICAL ARTHROSCOPY SHOULDER W/ROTATOR CUFF RPR Right 01/01/2018 Right shoulder arthroscopy SAD, Acromioplasty, debridement glenohumeral joint, biceps tenotomy, RCR, superior capsular reconstruction Medications: Current Outpatient Medications Medication Sig loperamide (IMODIUM) 2 mg cap(s) Take 1 capsule by mouth three times a day as needed. SUMAtriptan (IMITREX) 50 mg tablet Take 1 tablet (50 mg) by mouth as needed for migraine headache (see administration instructions). START AT ONSET OF HEADACHE. MAY REPEAT DOSE AFTER 2 HOURS. tiZANidine (ZANAFLEX) 4 mg tablet Take 1 tablet by mouth every 8 hours as needed. fluticasone-salmeterol (ADVAIR, WIXELA) 250-50 mcg/dose inhaler INHALE 1 PUFF BY MOUTH DIRECTED TWICE DAILY busPIRone (BUSPAR) 10 mg tablet Take 1 tablet by mouth three times a day. potassium chloride ER (KLOR-CON) 20 mEq tablet Take 1 tablet by mouth once daily. pregabalin (LYRICA) 100 mg capsule Take 1 capsule by mouth two times a day for 90 days. lisinopril (ZESTRIL) 40 mg tablet Take 1 tablet by mouth once daily. atorvastatin (LIPITOR) 40 mg tablet TAKE ONE TABLET BY MOUTH DAILY AT 9PM AT BEDTIME furosemide (LASIX) 40 mg tablet TAKE ONE TABLET BY MOUTH DAILY AT 9AM Strength: 40 mg traZODone (DESYREL) 50 mg tablet Take 1 tablet by mouth daily at bedtime. hydrOXYzine HCl (ATARAX) 50 mg tablet Take 1 tablet by mouth every 8 hours as needed for anxiety. escitalopram oxalate (LEXAPRO) 20 mg tablet Take 1 tablet by mouth once daily. albuterol HFA (PROAIR HFA) 90 mcg/actuation inhaler Inhale 2 Puffs as instructed. Dexlansoprazole (DEXILANT) 60 mg CpDM TAKE ONE CAPSULE BY MOUTH DAILY AT 9AM fluticasone (FLONASE) 50 mcg/actuation nasal spray INSTILL 2 SPRAYS IN EACH NOSTRIL DAILY RINSE MOUTH AFTER USE (BULK) hyoscyamine sublingual (LEVSIN SL) 0.125 mg Dissolve 1 tablet under the tongue three times daily asneeded. Cholecalciferol, Vitamin D3, 2,000 unit tab Take 2 tablets by mouth once daily. ondansetron orally disintegrating (ZOFRAN ODT) 4 mg disintegrating tablet Take 1 tablet by mouth every 8 hours as needed. nitroglycerin sublingual (NITROQUICK) 0.4 mg SL tablet Dissolve 0.4 mg under the tongue every 5 minutes as needed for chest pain. acetaminophen 325 mg cap Take by mouth. ipratropium (ATROVENT) 0.02 % nebulizer solution Use 2.5 mL via nebulizer four times daily as needed for Wheezing/Shortness of Breath. Use over 5-15minutes. Dx:J45.40 No current facility-administered medications for this visit. Allergies: Amlodipine, Ativan [Lorazepam], Baclofen, Methotrexate, Nadolol, Nexium [Esomeprazole Magnesium], Penicillin G, and Propranolol ROS: General (negative for fatigue, malaise, weight loss/gain) HEENT (negative for headache, earache, recent vision changes, sinus pain, sore throat) Respiratory (no recent shortness of breath, hemoptysis) CV (negative for chest tightness, palpitations) Musculoskeletal (see HPI) Psych (no depression, anxiety) Sebas Molina MD [facility] Telephone encounter Note * Telephone Encounter - Kayla Montez LPN - 02/04/2024 9:25 AM EST Prescription Refill Information The patient has been identified by name and date of : Yes Caregiver verified no other encounters exist for this prescription request: Yes Caregiver confirmed with patient/requestor that no other refills are due, in the near future, with this provider at this time: Yes The last office visit in the department: 12/11/23 Does the patient have a future office visit with this provider/department: Yes 03/12/24 Requested Prescriptions Pending Prescriptions Disp Refills loperamide (IMODIUM) 2 mg cap(s) 30 capsule 0 Sig: Take 1 capsule by mouth three times a day as needed. Kayla Montez LPN February 04, 2024 9:26 AM [facility]12-03-2024 Miscellaneous Notes* Telephone Encounter - Kayla Montez LPN - 02/04/2024 9:25 AM EST Prescription Refill Information The patient has been identified by name and date of : Yes Caregiver verified no other encounters exist for this prescription request: Yes Caregiver confirmed with patient/requestor that no other refills are due, in the near future, with this provider at this time: Yes The last office visit in the department: 12/11/23 Does the patient have a future office visit with this provider/department: Yes 03/12/24 Requested Prescriptions Pending Prescriptions Disp Refills loperamide (IMODIUM) 2 mg cap(s) 30 capsule 0 Sig: Take 1 capsule by mouth three times a day as needed. Kayla Montez LPN February 04, 2024 9:26 AM documented in this encounterMer[facility]12-[facility] Telephone encounter Note * Telephone Encounter - IvetteCesia LPN - 02/03/2024 3:48 PM EST Patient [employer] message requesting the following refill Refill(s) Requested: Requested Prescriptions Pending Prescriptions Disp Refills SUMAtriptan (IMITREX) 50 mg tablet 4 tablet 0 Sig: Take 1 tablet (50 mg) by mouth as needed for migraine headache (see administration instructions). START AT ONSET OF HEADACHE. MAY REPEAT DOSE AFTER 2 HOURS. ALLERGIES Allergen Reactions Amlodipine Other: See Comments shaky and jittery Ativan [Lorazepam] Mental Status Change, Vomiting mood swings Baclofen Mental Status Change angry,mood effect Methotrexate Vomiting abdomen pain,vomiting, sbo Nadolol Intolerance body burning,tingly Nexium [Esomeprazol* Other: See Comments reflux-no relief Penicillin G GI Upset patient reports these symptoms after medication was ordered Propranolol Intolerance fatigue,sleepy (home) [phone] (cell) Last Office Visit Date: 12/11/2023 Last Distance Health Visit: Visit date not found Future Appointment: 03/12/2024 The patients preferred pharmacy has been captured for this encounter? yes Request is for script(s) to be escript to pharmacy. Cesia Steele LPN [facility]12-02-2024 Miscellaneous Notes* Telephone Encounter - Cesia Steele LPN - 02/03/2024 3:48 PM EST Patient MyChart message requesting the following refill Refill(s) Requested: Requested Prescriptions Pending Prescriptions Disp Refills SUMAtriptan (IMITREX) 50 mg tablet 4 tablet 0 Sig: Take 1 tablet (50 mg) by mouth as needed for migraine headache (see administration instructions). START AT ONSET OF HEADACHE. MAY REPEAT DOSE AFTER 2 HOURS. ALLERGIES Allergen Reactions Amlodipine Other: See Comments shaky and jittery Ativan [Lorazepam] Mental Status Change, Vomiting mood swings Baclofen Mental Status Change angry,mood effect Methotrexate Vomiting abdomen pain,vomiting, sbo Nadolol Intolerance body burning,tingly Nexium [Esomeprazol* Other: See Comments reflux-no relief Penicillin G GI Upset patient reports these symptoms after medication was ordered Propranolol Intolerance fatigue,sleepy (home) [phone] (cell) Last Office Visit Date: 12/11/2023 Last Distance Health Visit: Visit date not found Future Appointment: 03/12/2024 The patients preferred pharmacy has been captured for this encounter? yes Request is for script(s) to be escript to pharmacy. Cesia Steele LPN documented in this encounterMer[facility]11-[facility] Telephone encounter Note * Telephone Encounter - Shelby Woods MA - 01/20/2024 12:52 PM EST Attempted to contact patient. {Phone number no longer in service. Tap[employer] Message sent. Per patient message, [facility] is back long and it' is going to be awhile so please send my refillfor this medication to [facility] please Medication updated and pharmacy confirmed. Shelby Woods MA [facility]11-18-2024 Miscellaneous Notes* Telephone Encounter - Shelby Wodos MA - 01/20/2024 12:52 PM EST Attempted to contact patient. {Phone number no longer in service. MyChart Message sent. Per patient message, [facility] is back long and it' is going to be awhile so please send my refillfor this medication to [facility] please Medication updated and pharmacy confirmed. Shelby Woods MA * Telephone Encounter - Dali Rice APRN.CNP - 01/17/2024 3:02 PM EST She mentioned srx for the pharmacy. What pharmacy does she need? Thank you Dali Rice APRN.[place] * Telephone Encounter - Lilliana Pruitt LPN - 01/17/2024 8:33 AM EST The patient has been identified by name and date of : Yes Caregiver verified no other encounters exist for this prescription request: Yes Caregiver confirmed with patient/requestor that no other refills are due, in the near future, with this provider at this time: Yes The last office visit in the department: 12/11/2023 Does the patient have a future office visit with this provider/department: Yes 03/12/24 Requested Prescriptions Pending Prescriptions Disp Refills tiZANidine (ZANAFLEX) 4 mg tablet 30 tablet 1 Sig: Take 1 tablet by mouth every 8 hours as needed. Lilliana Pruitt LPN January 17, 2024 8:33 AM [facility] Tele[facility] encounter Note * Telephone Encounter - Dali Rice APRN.CNP - 01/17/2024 3:02 PM EST She mentioned srx for the pharmacy. What pharmacy does she need? Thank you Dali Rice APRN.[place] [facility]11-15-[facility] Telephone encounter Note* Telephone Encounter - Lilliana Pruitt LPN - 01/17/2024 8:34 AM EST The patient has been identified by name and date of : Yes Caregiver verified no other encounters exist for this prescription request: Yes Caregiver confirmed with patient/requestor that no other refills are due, in the near future, with this provider at this time: Yes The last office visit in the department: 12/11/2023 Does the patient have a future office visit with this provider/department: Yes 03/12/24 Requested Prescriptions Pending Prescriptions Disp Refills SUMAtriptan (IMITREX) 50 mg tablet 4 tablet 0 Sig: Take 1 tablet (50 mg) by mouth as needed for migraine headache (see administration instructions). START AT ONSET OF HEADACHE. MAY REPEAT DOSE AFTER 2 HOURS. Lilliana Pruitt LPN January 17, 2024 8:34 AM [facility]11-15-[facility]24 Miscellaneous Notes* Telephone Encounter - Lilliana Pruitt LPN - 01/17/2024 8:34 AM EST The patient has been identified by name and date of : Yes Caregiver verified no other encounters exist for this prescription request: Yes Caregiver confirmed with patient/requestor that no other refills are due, in the near future, with this provider at this time: Yes The last office visit in the department: 12/11/2023 Does the patient have a future office visit with this provider/department: Yes 03/12/24 Requested Prescriptions Pending Prescriptions Disp Refills SUMAtriptan (IMITREX) 50 mg tablet 4 tablet 0 Sig: Take 1 tablet (50 mg) by mouth as needed for migraine headache (see administration instructions). START AT ONSET OF HEADACHE. MAY REPEAT DOSE AFTER 2 HOURS. Lilliana Pruitt LPN January 17, 2024 8:34 AM [facility] Telephone encounter Note * Telephone Encounter - Lilliana Pruitt LPN - 01/17/2024 8:33 AM EST The patient has been identified by name and date of : Yes Caregiver verified no other encounters exist for this prescription request: Yes Caregiver confirmed with patient/requestor that no other refills are due, in the near future, with this provider at this time: Yes The last office visit in the department: 12/11/2023 Does the patient have a future office visit with this provider/department: Yes 03/12/24 Requested Prescriptions Pending Prescriptions Disp Refills tiZANidine (ZANAFLEX) 4 mg tablet 30 tablet 1 Sig: Take 1 tablet by mouth every 8 hours as needed. Lilliana Pruitt LPN January 17, 2024 8:33 AM [facility] Telephone encounter Note* Telephone Encounter - Lilliana Pruitt LPN - 01/17/2024 8:32 AM EST The patient has been identified by name and date of : Yes Caregiver verified no other encounters exist for this prescription request: Yes Caregiver confirmed with patient/requestor that no other refills are due, in the near future, with this provider at this time: Yes The last office visit in the department: 12/11/2023 Does the patient have a future office visit with this provider/department: Yes 03/12/2024 Requested Prescriptions Pending Prescriptions Disp Refills ondansetron orally disintegrating (ZOFRAN ODT) 4 mg disintegrating tablet 30 tablet 1 Sig: Take 1 tablet by mouth every 8 hours as needed. Lilliana Pruitt LPN January 17, 2024 8:33 AM [facility] Miscellaneous Notes* Telephone Encounter - Lilliana Pruitt LPN - 01/17/2024 8:32 AM EST The patient has been identified by name and date of : Yes Caregiver verified no other encounters exist for this prescription request: Yes Caregiver confirmed with patient/requestor that no other refills are due, in the near future, with this provider at this time: Yes The last office visit in the department: 12/11/2023 Does the patient have a future office visit with this provider/department: Yes 03/12/2024 Requested Prescriptions Pending Prescriptions Disp Refills ondansetron orally disintegrating (ZOFRAN ODT) 4 mg disintegrating tablet 30 tablet 1 Sig: Take 1 tablet by mouth every 8 hours as needed. Lilliana Pruitt LPN January 17, 2024 8:33 AM documented in [facility] encounter[facility] Telephone encounter Note * Telephone Encounter - Merrick Lange - 01/16/2024 3:08 PM EST Procedure(s) being scheduled: Thoracic MBBs 1.Are you diabetic No 2. Are you on any blood thinners? No 3. Are you taking any aspirin? Yes, 325mg asp 4. Are you currently taking any antibiotics? No 5. Do you have any allergies to latex? No 6. Do you have any allergies to seafood or shellfish? No 7. Do you have any allergies to x-ray dye? No 8. Does this procedure require a stacker driver? Yes If yes, has patient been notified that a stacker driver is needed and must be present at check in? yes 9. Were the pre-procedure instructions explained and provided to the patient? Yes 10. Do you have a pacemaker? No 11. Do you have an internal stimulator of any kind? No If yes, please bring the remote with you to your procedure visit. Merrick Lange [facility]11-14-[facility]24 Miscellaneous Notes* Telephone Encounter - Merrick Lange - 01/16/2024 3:08 PM EST Procedure(s) being scheduled: Thoracic MBBs 1.Are you diabetic No 2. Are you on any blood thinners? No 3. Are you taking any aspirin? Yes, 325mg asp 4. Are you currently taking any antibiotics? No 5. Do you have any allergies to latex? No 6. Do you have any allergies to seafood or shellfish? No 7. Do you have any allergies to x-ray dye? No 8. Does this procedure require a stacker driver? Yes If yes, has patient been notified that a stacker driver is needed and must be present at check in? yes 9. Were the pre-procedure instructions explained and provided to the patient? Yes 10. Do you have a pacemaker? No 11. Do you have an internal stimulator of any kind? No If yes, please bring the remote with you to your procedure visit. Merrick Lange documented [facility]11-[facility] History of Present illness Narrative* Nuris Barba APRN.CNP - 01/16/2024 3:00 PM EST [facility] [place] [facility] Today's Date: 01/16/2024 Name: Leyda Lopez : 1960 Purpose: New Patient Consultation Chief complaint: low back pain Referring Clinician: Dali Rice Pertinent Past Medical History: fibromyalgia, cervical radiculitis, HTN, HLD, CHF, mitral regurgitation, asthma, COPD, JD, CKDIII, osteoporosis, depression, panic disorder, ADD Pertinent Past Surgeries: right rotator cuff repair History of Present Illness (HPI): 01/14/2024 - Initial HPI (Obtained by Nruis Barba CNP). DURATION AND ONSET: The pain complaint has been present for approximately >1 year. The pain had a gradual onset. The mechanism of injury is unknown. RED FLAG SYMPTOMS: arm or leg weakness and numbness or tingling. PAIN DESCRIPTION: Timing: Constant Character: Burning, Sharp, Stabbing Primary Location: mid back Radiation: none Exacerbating factors: Flexion, Extension Relieving factors: Sitting, Heat Interferes with: physical activity and household cleaning Patient is here for pain in the middle lower back. Patient stating that she has had this pain for about a year description as noted above. Patient stating that the pain is interfering with her activity all the time. Patient has not been to physical therapy recently has had recent x-rays of her back. After further discussion patient has been to other pain management providers patient stating that she has been to Dr. Blankenship's office, Dr. Friend's office, and [facility] in the past. Patient states she does not remember why she did not go back to Dr. Friend's or [facility] but Dr. Blankenship did the injection in the wrong area and that is why she stopped going there. Patient stating that she also has a lot of stomach issues. Patient stating that there is times thatshe has a hard time with her bowels. Patient denies incontinence but says that there are times thatshe can be in the bathroom all day. Patient is currently taking Lyrica with relief. She is also taking tizanidine that helps somewhat. Patient stating that her dose of Lyrica had been higher in the past but it has been decreased. Patient is here to see what can be done next to help with her back pain. Current Pain Medications: Neuropathics: lyrica NSAIDS: GERD avoids use Muscle Relaxants: tizanidine Topicals: Other Prescription or OTC Pain Medications: tylenol Opioids (when applicable): Anti-depressants or Mood-Stabilizers: Buspar, Lexapro, Trazodone Anti-Coagulants: None Therapies Attended (Current or Most Recent): No Current Therapies 01/16/2024 AG SPINE COMBINATION Questionnaire GREENLIGHT Completed Date 01/16/2024 Questionnaire Opiod Risk Tool Completed Date 01/16/2024 Comments 12 Greenlight Questionnaire GREENLIGHT Completed Date 01/16/2024 Opioid Risk Tool Opiod Risk Tool Date Completed 01/16/2024 Comments 12 CHANCE-7 Anxiety Score 13 Completed Date 01/16/2024 PHQ9P Score 16 Completed Date 01/16/2024 (All drug screens are appropriate unless indicated otherwise) Treatment History: PAIN PROCEDURES: DATE PROCEDURE IMPROVEMENT To date, no interventional pain management procedures performed at this practice. MEDICATIONS Taken TO DATE (for the chief complaint(s)): Neuropathics: Lyrica (Prebabalin) NSAIDS: None Muscle Relaxants: Zanaflex (Tizanidine), Topicals: Gaoj-Jmc-Gvyfpka (OTC) Other Prescription or OTC Pain Medications: Tylenol (Acetaminophen) Opioids: None Compliance: PDMP website checked and validated on 01/16/2024 by Nuris Barba APRN.PLATE FILLER All prescriptions have been APPROPRIATELY filled. No suspicious activity was identified. 01/16/2024 AG SPINE COMBINATION Questionnaire GREENLIGHT Completed Date 01/16/2024 Questionnaire Opiod Risk Tool Completed Date 01/16/2024 Comments 12 (All drug screens are appropriate unless indicated otherwise) Risk Assessment: CHANCE-7: 01/16/2024 CHANCE - 7 SCORES Score 13 (0-4) minimal anxiety, (5-9) mild anxiety, (10-14) moderate anxiety, (15-21) severe anxiety PHQ-9: 11/12/2023 12/11/2023 01/16/2024 PHQ-9 Score 22 17 16 (0-4) minimal depression, (5-9) mild depression, (10-14) moderate depression, (15-19) moderately severe depression, (20-27) severe depression Greenlight Questionnaire GREENLIGHT Completed Date 01/16/2024 Opioid Risk Tool Opiod Risk Tool Date Completed 01/16/2024 Comments 12 CHANCE-7 Anxiety Score 13 Completed Date 01/16/2024 PHQ9P Score 16 Completed Date 01/16/2024 Diagnostic Studies: Relevant Imaging: MRI Spine Report MRI CERVICAL SPINE WO CONTRAST Collected: 05/28/2014 2:49 PM (Final result) 10/26/2023 9:27 AM - Radiology, [facility] In Impression IMPRESSION: Prominent thoracic kyphosis, mild dextroscoliosis, and severe thoracic spine degenerative changes. Suspected mild T6-T9 compression deformities which appear similar to the prior from 2022. However exam is limited due to osteopenia and superimposed structures, and CT thoracic spine without contrast may be performed for further evaluation as clinically warranted. Regulatory Intern: PSCB Transcribe Date/Time: Oct 26 2023 9:20A Dictated by : FANNY RICHTER MD This examination was interpreted and the report reviewed and electronically signed by: FANNY RICHTER MD on Oct 26 2023 9:25AM EST Results-Findings * * *Final Report* * * DATE OF EXAM: Oct 22 2023 1:25PM WOX [id number] - XR THORACIC 3V AP/LAT/SWIMMERS / PROCEDURE REASON: Acute midline thoracic back pain * * * * Physician Interpretation * * * * HISTORY: Acute midline thoracic back pain . Chronic upper back pain that increased yesterday without injury. TECHNIQUE: XR THORACIC 3V AP/LAT/SWIMMERS Laterality: NOT APPLICABLE Number of different views (projections): 3 COMPARISON: Thoracic spine radiographs 10/01/2022 RESULT: Limited exam due to osteopenia, and superimposed structures obscuring evaluation of the thoracic spine particularly involving the superior and inferior aspects of the thoracic spine on lateral views. Prominent thoracic kyphosis. Apparent mild compression deformities of T6-T9 vertebral bodies, which appears similar to prior. Severe multilevel disc space narrowing of the thoracic spine. Multilevel endplate osteophytes and sclerosis. Mild thoracic dextroscoliosis. Bilateral lower lung zone atelectasis or scarring. Partially imaged metallic suture anchor overlying the right proximal humerus. Electrodiagnostic Study (EMG): None Recent Labs: Creatinine Date Value Ref Range Status 12/26/2023 1.05 (H) 0.58 - 0.96 mg/dL Final No results found for: EGFR Glucose, Point of Care Date Value Ref Range Status 03/26/2015 123 (A) 65 - 100 mg/dL Final Current Medications, Past Medical History, Past Surgical History, Family History, Social History and Review of Systems: On today's date, noted above, I have confirmed and edited as necessary, the PFSH and ROS obtained by others. Physical Exam: 01/16/24 1433 Pulse: 85 Resp: 16 SpO2: 95% Physical Exam Vitals reviewed. Constitutional: General: She is not in acute distress. Appearance: She is not ill-appearing. HENT: Head: Normocephalic and atraumatic. Eyes: Conjunctiva/sclera: Conjunctivae normal. Cardiovascular: Pulses: Normal pulses. Pulmonary: Effort: Pulmonary effort is normal. No respiratory distress. Musculoskeletal: Thoracic back: Spasms and tenderness present. Decreased range of motion. Scoliosis (and kyposis) present. Skin: General: Skin is warm and dry. Neurological: Mental Status: She is alert and oriented to person, place, and time. Psychiatric: Mood and Affect: Mood and affect normal. Behavior: Behavior normal. Behavior is cooperative. IMPRESSION: 63 year old female presents with complaint(s) of mid back pain. I reviewed the x-rays of the thoracic spine and also the patient's current pain level. Patient may benefit from attempting a medial branch nerve block series. However, patient has been to multiple pain management's I would want to review the notes before she follows through with the injection. I explained to the patient that I will put her on the schedule to have the injection done however, if there is anything in the notes that we received from any of the pain managements that she has been to in the past, this injection may be canceled. Patient stating understanding. We did discuss pain medications. I do not want to go higher on the Lyrica due to her GI issues. And I also want to avoid opioid therapy with this patient. This was explained to the patient and she is in agreement with this plan. Diagnoses: (M51.34) Thoracic degenerative disc disease (G89.4) Pain syndrome, chronic (M43.9) Compression deformity of vertebra PLAN: Leyda Lopez would benefit from the following to reach personal goals for decreasing pain, improving function and work participation, and/or improving quality of life: Medications: No Changes - Continue Current Medications Interventional Procedures: Medial Branch Block (Diagnostic only, NO STEROIDS) under fluoroscopic guidance BILATERAL SIDES at T6-7 and T7-8 Shaving Machine Operator Needed: Medial Branch Blocks - YES Anticoagulant - Hold Needed: N/A (Not currently on Anticoagulants) Anticoagulant - Currently Taking: None Allergies (relevant): None Scheduling - Mobility (Can Patient independently transfer on/off an OR or Procedure table?): YES (May schedule at any location) Scheduling - Additional Info: None Studies: None Functional Advent: NONE Referrals: No additional considerations at present Follow-up: Follow up 1-5 days after each procedure as a VV Depending on response to the above plan, consider: TBD Compliance and Clinic Policies Reviewed and/or Discussed Today: None Attribution: In addition to reviewing the information noted above, some elements copied from my most recent clinical note(s), including the physical exam (completed in entirety today), and the impression and plan sections, have been updated where appropriate. All reflect current medical decision making from today's date. Nuris Barba APRN.[place] [facility] * Anne Marie Torres MA - 01/16/2024 2:27 PM EST Review of Systems Constitutional: Negative for activity change, chills, fever and unexpected weight change. Gastrointestinal: Negative for bowel retention or incontinence Genitourinary: Negative for difficulty urinating. Negative for bladder retention or incontinence Musculoskeletal: Positive for arthralgias, back pain, gait problem, joint swelling and myalgias. Negative for neck pain and neck stiffness. Neurological: Positive for weakness, numbness and headaches. Psychiatric/Behavioral: Positive for dysphoric mood and sleep disturbance. Negative for suicidal ideas. The patient is nervous/anxious. documented in this [facility]Mer[facility]11-[facility]24 NoteHNO ID: [id number] Author: NURIS BARBA APRN.[place] Service: ? Author Type: Nurse Practitioner Type: Progress Notes Filed: 01/16/2024 16:46 Note Text: [facility] [facility] Today's Date: 01/16/2024 Name: Leyda Lopez : 1960 Purpose: New Patient Consultation Chief complaint: low back pain Referring Clinician: Dali Rice Pertinent Past Medical History: fibromyalgia, cervical radiculitis, HTN, HLD, CHF, mitral regurgitation, asthma, COPD, JD, CKDIII, osteoporosis, depression, panic disorder, ADD Pertinent Past Surgeries: right rotator cuff repair History of Present Illness (HPI): 01/14/2024 - Initial HPI (Obtained by Nuris Barba CNP). DURATION AND ONSET: The pain complaint has been present for approximately >1 year. The pain had a gradual onset. The mechanism of injury is unknown. RED FLAG SYMPTOMS: arm or leg weakness and numbness or tingling. PAIN DESCRIPTION: Timing: Constant Character: Burning, Sharp, Stabbing Primary Location: mid back Radiation: none Exacerbating factors: Flexion, Extension Relieving factors: Sitting, Heat Interferes with: physical activity and household cleaning Patient is here for pain in the middle lower back. Patient stating that she has had this pain for about a year description as noted above. Patient stating that the pain is interfering with her activity all the time. Patient has not been to physical therapy recently has had recent x-rays of her back. After further discussion patient has been to other pain management providers patient stating that she has been to Dr. Blankenship's office, Dr. Friend's office, and [facility] in the past. Patient states she does not remember why she did not go back to Dr. Friend's or comprehensive pain management but Dr. Blankenship did the injection in the wrong area and that is why she stopped going there. Patient stating that she also has a lot of stomach issues. Patient stating that there is times that she has a hard time with her bowels. Patient denies incontinence but says that there are times that she can be in the bathroom all day. Patient is currently taking Lyrica with relief. She is also taking tizanidine that helps somewhat. Patient stating that her dose of Lyrica had been higher in the past but it has been decreased. Patient is here to see what can be done next to help with her back pain. Current Pain Medications: Neuropathics: lyrica NSAIDS: GERD avoids use Muscle Relaxants: tizanidine Topicals: Other Prescription or OTC Pain Medications: tylenol Opioids (when applicable): Anti-depressants or Mood-Stabilizers: Buspar, Lexapro, Trazodone Anti-Coagulants: None Therapies Attended (Current or Most Recent): No Current Therapies 01/16/2024 AG SPINE COMBINATION Questionnaire GREENLIGHT Completed Date 01/16/2024 Questionnaire Opiod Risk Tool Completed Date 01/16/2024 Comments 12 Greenlight Questionnaire GREENLIGHT Completed Date 01/16/2024 Opioid Risk Tool Opiod Risk Tool Date Completed 01/16/2024 Comments 12 CHANCE-7 Anxiety Score 13 Completed Date 01/16/2024 PHQ9P Score 16 Completed Date 01/16/2024 (All drug screens are appropriate unless indicated otherwise) Treatment History: PAIN PROCEDURES: DATE PROCEDURE IMPROVEMENT To date, no interventional pain management procedures performed at this practice. MEDICATIONS Taken TO DATE (for the chief complaint(s)): Neuropathics: Lyrica (Prebabalin) NSAIDS: None Muscle Relaxants: Zanaflex (Tizanidine), Topicals: Yhmi-Ykg-Fgcsmck (OTC) Other Prescription or OTC Pain Medications: Tylenol (Acetaminophen) Opioids: None Compliance: PDMP website checked and validated on 01/16/2024 by Nuris Barba APRN.PLATE FILLER All prescriptions have been APPROPRIATELY filled. No suspicious activity was identified. 01/16/2024 AG SPINE COMBINATION Questionnaire GREENLIGHT Completed Date 01/16/2024 Questionnaire Opiod Risk Tool Completed Date 01/16/2024 Comments 12 (All drug screens are appropriate unless indicated otherwise) Risk Assessment: CHANCE-7: 01/16/2024 CHANCE - 7 SCORES Score 13 (0-4) minimal anxiety, (5-9) mild anxiety, (10-14) moderate anxiety, (15-21) severe anxiety PHQ-9: 11/12/2023 12/11/2023 01/16/2024 PHQ-9 Score 22 17 16 (0-4) minimal depression, (5-9) mild depression, (10-14) moderate depression, (15-19) moderately severe depression, (20-27) severe depression Greenlight Questionnaire GREENLIGHT Completed Date 01/16/2024 Opioid Risk Tool Opiod Risk Tool Date Completed 01/16/2024 Comments 12 CHANCE-7 Anxiety Score 13 Completed Date 01/16/2024 PHQ9P Score 16 Completed Date 01/16/2024 Diagnostic Studies: Relevant I (more content not included)...[facility]11-14-2024 NoteHNO ID: [id number] Author: ANNE MARIE TORRES MA Service: ? Author Type: Radius Corner Machine Operator Type: Progress Notes Filed: 01/16/2024 16:46 Note Text: Review of Systems Constitutional: Negative for activity change, chills, fever and unexpected weight change. Gastrointestinal: Negative for bowel retention or incontinence Genitourinary: Negative for difficulty urinating. Negative for bladder retention or incontinence Musculoskeletal: Positive for arthralgias, back pain, gait problem, joint swelling and myalgias. Negative for neck pain and neck stiffness. Neurological: Positive for weakness, numbness and headaches. Psychiatric/Behavioral: Positive for dysphoric mood and sleep disturbance. Negative for suicidal ideas. The patient is nervous/anxious.[facility]11-13-2024 Telephone encounter Note* Telephone Encounter - Kayal Montez LPN - 01/15/2024 12:05 PM EST Prescription Refill Information The patient has been identified by name and date of : Yes Caregiver verified no other encounters exist for this prescription request: Yes Caregiver confirmed with patient/requestor that no other refills are due, in the near future, with this provider at this time: Yes The last office visit in the department: 12/11/23 Does the patient have a future office visit with this provider/department: Yes 03/12/24 Requested Prescriptions Pending Prescriptions Disp Refills busPIRone (BUSPAR) 10 mg tablet 90 tablet 1 Sig: Take 1 tablet by mouth three times a day. Kayla Montez LPN January 15, 2024 12:05 PM [facility]11-13-2024 Miscellaneous Notes* Telephone Encounter - Kayla Montez LPN - 01/15/2024 12:05 PM EST Prescription Refill Information The patient has been identified by name and date of : Yes Caregiver verified no other encounters exist for this prescription request: Yes Caregiver confirmed with patient/requestor that no other refills are due, in the near future, with this provider at this time: Yes The last office visit in the department: 12/11/23 Does the patient have a future office visit with this provider/department: Yes 03/12/24 Requested Prescriptions Pending Prescriptions Disp Refills busPIRone (BUSPAR) 10 mg tablet 90 tablet 1 Sig: Take 1 tablet by mouth three times a day. Kayla Montez LPN January 15, 2024 12:05 PM [facility] Telephone encounter Note * Telephone Encounter - Gustavo Wells RN - 01/03/2024 3:03 PM EDT Pt called and is notified of providers message and instructions. Pt voices understanding. Gustavo Wells RN [facility]11-01-2024 Miscellaneous Notes* Telephone Encounter - Gustavo Wells RN - 01/03/2024 3:03 PM EDT Pt called and is notified of providers message and instructions. Pt voices understanding. Gustavo Wells RN * Telephone Encounter - Michelle Beckham MA - 01/03/2024 2:32 PM EDT Left message for return call. * Telephone Encounter - Dali Rice APRN.CNP - 01/03/2024 1:38 PM EDT Potassium supplement reordered as previously taking. Recheck level next week. Thank you Dali Rice APRN.MARIETTA * Telephone Encounter - Kellen Alexandra LPN - 01/03/2024 1:10 PM EDT Patient returned call and went over results, notes from Dali Rice CARPET BINDER. Patient said she has been outof her potassium rx completed it from when she was in the hospital last time. Patient asking for another rx to be sent to [facility] pharmacy please. * Telephone Encounter - Cesia Steele LPN - 01/02/2024 1:16 PM EDT Called and left message for patient to call office back. Cesia Steele LPN January 02, 2024 1:16 PM * Telephone Encounter - Dali Rice APRN.CNP - 01/02/2024 12:27 PM EDT Potassium level is low. Has she been taking her prescribed potassium supplement? This was prescribed by other provider. Please verify how much she is taking and who is prescribing it. Thank you Dali Rice APRN.CNP [facility] Telephone encounter Note * Telephone Encounter - Michelle Beckham MA - 01/03/2024 2:32 PM EDT Left message for return call. [facility]11-01-[facility] Telephone encounter Note* Telephone Encounter - Dali Rice APRN.CNP - 01/03/2024 1:38 PM EDT Potassium supplement reordered as previously taking. Recheck level next week. Thank you Dali Rice APRN.CNP [facility]-01[facility] Telephone encounter Note* Telephone Encounter - Kellen Alexandra LPN - 01/03/2024 1:12 PM EDT Patient returned call and went over notes below from Dali Rice CARPET BINDER with understanding. Patient said she has appt scheduled for Saturday to see PCP. [facility]-01-[facility] Miscellaneous Notes* Telephone Encounter - Kellen Alexandra LPN - 01/03/2024 1:12 PM EDT Patient returned call and went over notes below from Dali Rice CARPET BINDER with understanding. Patient said she has appt scheduled for Saturday to see PCP. * Telephone Encounter - Michelle Beckham MA - 01/03/2024 12:35 PM EDT Left message for return call. * Telephone Encounter - Dali Rice APRN.CNP - 01/03/2024 11:08 AM EDT She needs seen for any refill for this or breathing concerns. Thank you Dali Rice APRN.MARIETTA * Telephone Encounter - Lilliana Pruitt LPN - 01/03/2024 9:45 AM EDT See message below why pt is requesting Prednisone. Patient Comment: They help my breath ing and all of my health problems and I have a appointment Saturday with you The patient has been identified by name and date of : Yes Caregiver verified no other encounters exist for this prescription request: Yes Caregiver confirmed with patient/requestor that no other refills are due, in the near future, with this provider at this time: Yes The last office visit in the department: 12/11/2023 Does the patient have a future office visit with this provider/department: Yes 01/06/2024 Requested Prescriptions Pending Prescriptions Disp Refills predniSONE (DELTASONE) 10 mg tablet 21 tablet 0 Sig: Take 4 tabs daily for 3 days, then 2 tabs daily for 3 days, then 1 tab daily for 3 days with food. Lilliana Pruitt LPN January 03, 2024 9:46 AM documented in [facility] Telephone encounter Note * Telephone Encounter - Kellen Alexandra LPN - 01/03/2024 1:10 PM EDT Patient returned call and went over results, notes from Dali Rice CARPET BINDER. Patient said she has been outof her potassium rx completed it from when she was in the hospital last time. Patient asking for another rx to be sent to [facility] pharmacy please. [facility]-01-[facility] Telephone encounter Note* Telephone Encounter - Michelle Beckham MA - 01/03/2024 12:35 PM EDT Left message for return call. [facility]-01[facility] Telephone encounter Note* Telephone Encounter - Dali Rice APRN.CNP - 01/03/2024 11:08 AM EDT She needs seen for any refill for this or breathing concerns. Thank you Dali Rice APRN.PLATE FILLER [facility]11-01-2024 Telephone encounter Note* Telephone Encounter - Lilliana Pruitt LPN - 01/03/2024 9:45 AM EDT See message below why pt is requesting Prednisone. Patient Comment: They help my breath ing and all of my health problems and I have a appointment Saturday with you The patient has been identified by name and date of : Yes Caregiver verified no other encounters exist for this prescription request: Yes Caregiver confirmed with patient/requestor that no other refills are due, in the near future, with this provider at this time: Yes The last office visit in the department: 12/11/2023 Does the patient have a future office visit with this provider/department: Yes 01/06/2024 Requested Prescriptions Pending Prescriptions Disp Refills predniSONE (DELTASONE) 10 mg tablet 21 tablet 0 Sig: Take 4 tabs daily for 3 days, then 2 tabs daily for 3 days, then 1 tab daily for 3 days with food. Lilliana Pruitt LPN January 03, 2024 9:46 AM [facility]10-31-2024 Telephone encounter Note* Telephone Encounter - Cesia Steele LPN - 01/02/2024 1:16 PM EDT Called and left message for patient to call office back. Cesia Steele LPN January 02, 2024 1:16 PM [facility]10-31-[facility] Telephone encounter Note* Telephone Encounter - Dali Rice APRN.CNP - 01/02/2024 12:27 PM EDT Potassium level is low. Has she been taking her prescribed potassium supplement? This was prescribed by other provider. Please verify how much she is taking and who is prescribing it. Thank you Dali Rice APRN.PLATE FILLER [facility]10-29-[facility] Telephone encounter Note* Telephone Encounter - Gustavo Wells RN - 12/31/2023 8:09 AM EDT Pt called and is notified of providers results and instructions. Pt voices understanding. Pt scheduled with Dr Palacio 01/06/24. Gustavo Wells RN [facility]10-29-[facility]24 Miscellaneous Notes* Telephone Encounter - Gustavo Wells RN - 12/31/2023 8:09 AM EDT Pt called and is notified of providers results and instructions. Pt voices understanding. Pt scheduled with Dr Palacio 01/06/24. Gustavo Wells, RN * Telephone Encounter - Velvet Palacio MD - 12/30/2023 6:17 PM EDT Ordered lyrica, Would like her to follow up with me regarding the low potassium this week or next Regards, Velvet Palacio MD * Telephone Encounter - Gustavo Wells RN - 12/27/2023 2:45 PM EDT Pt called in and was asking for lab results. BUN and creat have improved. Pt was asking if providerwould increase her Lyrica, she states she was waiting on these labs to come back for provider to [facility]. Let Pt know her sodium was high and asked if she was eating things high in sodium and she said she was eating a lot of cereal and toast. Pts K+ was 3.3, and she states she used to be on a potassium pill. Pt was asking if provider would re-order potassium pill, Pt uses [facility] in [place]. Please call and advise Pt. BUN 7 - 21 mg/dL 17 39 High 31 High 22 High 25 High Creatinine 0.58 - 0.96 mg/dL 1.05 High 1.44 High 1.12 High 1.08 High 1.08 High 1.17 High Sodium 136 - 144 mmol/L 146 High 143 142 143 141 Potassium 3.7 - 5.1 mmol/L 3.3 Low 4.6 4.7 4.5 4.7 Chloride 98 - 107 mmol/L 103 107 101 R 104 R 105 R CO2 22 - 30 mmol/L 31 High 24 25 29 25 Anion Gap 8 - 15 mmol/L 12 12 16 R 10 R 11 R Calcium, Total 8.5 - 10.2 mg/dL 9.2 9.8 9.5 9.3 9.3 8.9 Estimated Glomerular Filtration Rate >=60 mL/min/1.73m 60 41 Low CM 56 Low CM 58 Low CM 58 Low CM 53 Low CM documented in [facility] encounter[facility]10-28-2024 Telephone encounter Note * Telephone Encounter - Velvet Palacio MD - 12/30/2023 6:17 PM EDT Ordered lyrica, Would like her to follow up with me regarding the low potassium this week or next Regards, Velvet Palacio MD [facility]10-25-2024 Telephone encounter Note* Telephone Encounter - Gustavo Wells RN - 12/27/2023 2:45 PM EDT Pt called in and was asking for lab results. BUN and creat have improved. Pt was asking if providerwould increase her Lyrica, she states she was waiting on these labs to come back for provider to [facility]. Let Pt know her sodium was high and asked if she was eating things high in sodium and she said she was eating a lot of cereal and toast. Pts K+ was 3.3, and she states she used to be on a potassium pill. Pt was asking if provider would re-order potassium pill, Pt uses [facility] in [place]. Please call and advise Pt. BUN 7 - 21 mg/dL 17 39 High 31 High 22 High 25 High Creatinine 0.58 - 0.96 mg/dL 1.05 High 1.44 High 1.12 High 1.08 High 1.08 High 1.17 High Sodium 136 - 144 mmol/L 146 High 143 142 143 141 Potassium 3.7 - 5.1 mmol/L 3.3 Low 4.6 4.7 4.5 4.7 Chloride 98 - 107 mmol/L 103 107 101 R 104 R 105 R CO2 22 - 30 mmol/L 31 High 24 25 29 25 Anion Gap 8 - 15 mmol/L 12 12 16 R 10 R 11 R Calcium, Total 8.5 - 10.2 mg/dL 9.2 9.8 9.5 9.3 9.3 8.9 Estimated Glomerular Filtration Rate >=60 mL/min/1.73m 60 41 Low CM 56 Low CM 58 Low CM 58 Low CM 53 Low CM [facility]10-22-2024 Telephone encounter Note* Telephone Encounter - Ca Valenzuela RN - 12/24/2023 3:46 PM EDT The patient has been identified by name and date of : Yes Caregiver verified no other encounters exist for this prescription request: Yes Caregiver confirmed with patient/requestor that no other refills are due, in the near future, with this provider at this time: Yes The last office visit in the department: 12/11/2023 Does the patient have a future office visit with this provider/department: 03/12/2024 Requested Prescriptions Pending Prescriptions Disp Refills SUMAtriptan (IMITREX) 50 mg tablet 4 tablet 0 Sig: Take 1 tablet (50 mg) by mouth as needed for migraine headache (see administration instructions). START AT ONSET OF HEADACHE. MAY REPEAT DOSE AFTER 2 HOURS. tiZANidine (ZANAFLEX) 4 mg tablet 30 tablet 1 Sig: Take 1 tablet by mouth every 8 hours as needed. Ca Valenzuela RN December 24, 2023 3:46 PM [facility]10-22-2024 Miscellaneous Notes* Telephone Encounter - Ca Valenzuela RN - 12/24/2023 3:46 PM EDT The patient has been identified by name and date of : Yes Caregiver verified no other encounters exist for this prescription request: Yes Caregiver confirmed with patient/requestor that no other refills are due, in the near future, with this provider at this time: Yes The last office visit in the department: 12/11/2023 Does the patient have a future office visit with this provider/department: 03/12/2024 Requested Prescriptions Pending Prescriptions Disp Refills SUMAtriptan (IMITREX) 50 mg tablet 4 tablet 0 Sig: Take 1 tablet (50 mg) by mouth as needed for migraine headache (see administration instructions). START AT ONSET OF HEADACHE. MAY REPEAT DOSE AFTER 2 HOURS. tiZANidine (ZANAFLEX) 4 mg tablet 30 tablet 1 Sig: Take 1 tablet by mouth every 8 hours as needed. Ca Valenzuela RN December 24, 2023 3:46 PM documented in [facility] encounter[facility]10-[facility]24 Telephone encounter Note * Telephone Encounter - Gustavo Wells RN - 12/12/2023 1:25 PM EDT Pt called and is notified of providers results and instructions. Pt voices understanding. Gustavo Wells RN [facility]10-10-[facility]24 Miscellaneous Notes* Telephone Encounter - Gustavo Wells RN - 12/12/2023 1:25 PM EDT Pt called and is notified of providers results and instructions. Pt voices understanding. Gustavo Wells RN * Telephone Encounter - Dali Rice APRN.CNP - 12/12/2023 12:40 PM EDT I wanted her to do the prednisone before any increase and yes she is fine to take this. Continue lasix for now and follow previous instructions. Will revaluate this when kidney function rechecked in 2 weeks. Thank you Dali Rice APRN.MARIETTA * Telephone Encounter - Gustavo Wells RN - 12/12/2023 9:54 AM EDT Pt called and is notified of providers results and instructions. Pt voices understanding. Pt was asking about the Prednisone taper the provider put her on if she is still able to take that. Pt was also asking about her Lasix that she takes if that is ok. Pt states she thought the provider had talked about increasing her Lyrical, but she never did. Please call and advise. Gustavo Wells, RN * Telephone Encounter - Dali Rice APRN.CNP - 12/12/2023 7:16 AM EDT Kidney function decreased. Do not take any meloxicam, ibuprofen, advil, aleve, naproxen, or any other anti-inflammatory. Can take tylenol. Also increase water to stay hydrated and recheck in 2 weeks. Thank you Dali Rice APRN.MARIETTA documented in [facility] encounter[facility]10-[facility]-2024 Telephone encounter Note * Telephone Encounter - Dali Rice APRN.CNP - 12/12/2023 12:40 PM EDT I wanted her to do the prednisone before any increase and yes she is fine to take this. Continue lasix for now and follow previous instructions. Will revaluate this when kidney function rechecked in 2 weeks. Thank you Dali Rice APRN.MARIETTA [facility]10-10-2024 Telephone encounter Note* Telephone Encounter - Mari Martinez APRN.CNP - 12/12/2023 11:23 AM EDT Noted. Mari Mueller APRN.PLATE FILLER [facility]10-10-2024 Miscellaneous Notes* Telephone Encounter - Mari Martinez APRN.MARIETTA - 12/12/2023 11:23 AM EDT Noted. Mari Mueller APRN.CNP * Telephone Encounter - Raine Judd RN - 12/12/2023 11:11 AM EDT Spoke with patient, relayed message below, states she has spoken with PCP office this morning regarding labs. Also states she is not ready to proceed with Reclast at this time, patient has no questions for provider regarding Reclast at this time. Agrees to reach out to office at [phone] or thru MyChart when she is more clear in her head and has delt with other things going on Raine Judd RN * Telephone Encounter - Mari Martinez APRN.MARIETTA - 12/12/2023 11:02 AM EDT Please call and inform the patient that her creatinine (measure of kidney function) is elevated. She should stay well hydrated and follow up with her pcp for this. Her calcium and vitamin D levels are within normal limits. The reclast has been approved. Please see if she is agreeable to starting it. If so, please provideher with information to schedule at [place], she is due now. Please advise her to stay well hydratedthe day of the infusion. She should have labs done to check a calcium level 2 weeks after the reclast. If she is agreeable to starting reclast, please route the message back to me so that I can place the order. Thanks, Mari Martinez APRN.MARIETTA documented in this encounterMer[facility]10-10-2024 Telephone encounter Note * Telephone Encounter - Raine Judd RN - 12/12/2023 11:11 AM EDT Spoke with patient, relayed message below, states she has spoken with PCP office this morning regarding labs. Also states she is not ready to proceed with Reclast at this time, patient has no questions for provider regarding Reclast at this time. Agrees to reach out to office at [phone] or thru MyChart when she is more clear in her head and has delt with other things going on Raine Judd RN T [facility]10-10-2024 Telephone encounter Note* Telephone Encounter - Mari Martinez APRN.MARIETTA - 12/12/2023 11:02 AM EDT Please call and inform the patient that her creatinine (measure of kidney function) is elevated. She should stay well hydrated and follow up with her pcp for this. Her calcium and vitamin D levels are within normal limits. The reclast has been approved. Please see if she is agreeable to starting it. If so, please provideher with information to schedule at [place], she is due now. Please advise her to stay well hydratedthe day of the infusion. She should have labs done to check a calcium level 2 weeks after the reclast. If she is agreeable to starting reclast, please route the message back to me so that I can place the order. Thanks, Mari Martinez APRN.PLATE FILLER [facility]10-10-2024 Telephone encounter Note* Telephone Encounter - Gustavo Wells RN - 12/12/2023 9:54 AM EDT Pt called and is notified of providers results and instructions. Pt voices understanding. Pt was asking about the Prednisone taper the provider put her on if she is still able to take that. Pt was also asking about her Lasix that she takes if that is ok. Pt states she thought the provider had talked about increasing her Lyrical, but she never did. Please call and advise. Gustavo Wells RN [facility]10-10-2024 Telephone encounter Note* Telephone Encounter - Dali Rice APRN.MARIETTA - 12/12/2023 7:16 AM EDT Kidney function decreased. Do not take any meloxicam, ibuprofen, advil, aleve, naproxen, or any other anti-inflammatory. Can take tylenol. Also increase water to stay hydrated and recheck in 2 weeks. Thank you Dali Rice APRN.MARIETTA [facility]10-09-2024 NoteHNO ID: [id number] Author: DALI RICE APRN.CNP Service: ? Author Type: Nurse Practitioner Type: Progress Notes Filed: 12/11/2023 15:26 Note Text: CC: Patient presents with: Recheck: HTN follow up HPI Leyda Lopez is a 62 year old female who presents today for blood pressure follow up. Was seen a few weeks ago and lyrica increased to help with pain control as the pain was thought to increase her blood pressure. HTN: Ms. Lopez indicates that she is feeling well and denies any symptoms referable to elevated blood pressure. Specifically denies headache, chest pain, palpitations, dyspnea, and peripheral edema. Patient denies any side effects of her medication(s) and is compliant with their regimen. She does not check BP's generally. Leyda denies regular aerobic exercise. She watches her diet for sodium, low fat and low cholesterol most of the time. Last 3 Encounter BP Readings: Date: BP: 12/11/2023 128/80 11/12/2023 174/106 11/06/2023 138/92 Ongoing pain. Patient denies much improvement with increase of lyrica. Would like NSAIDs but no recent kidney function. Has used steroids in the past with great improvement but tried to use minimally due to osteoporosis. Has only been on twice this year in small amounts for breathing issues. Has appointment next month with pain mgmt. REVIEW OF SYSTEMS See HPI PAST MEDICAL HISTORY Diagnosis Date Abdominal pain, right upper quadrant ADD (attention deficit disorder) Seeing psychiatry Anemia, unspecified Asthma Back pain chronic-Seeing Dr. Blankenship Bipolar affective disorder (HCC) Chronic right shoulder pain Seeing Dr. Molina Closed dislocation of tarsometatarsal (joint) 01/18/2011 COPD (chronic obstructive pulmonary disease) (HCC) Depressive disorder, not elsewhere classified 03/22/2005 Disorder of bone and cartilage, unspecified 02/09/2008 Distal radius fracture 01/05/2011 Dysuria Fibromyalgia GERD (gastroesophageal reflux disease) IBS (irritable bowel syndrome) Mitral regurgitation Severe Neck pain chronic-takes vicodin for this NSTEMI (non-ST elevated myocardial infarction) ([facility]) Seeing Dr. Hutton Other and unspecified hyperlipidemia Panic disorder without agoraphobia 03/22/2005 PMR (polymyalgia rheumatica) ([facility]) RA (rheumatoid arthritis) ([facility]) Unspecified essential hypertension 03/22/2005 PAST SURGICAL HISTORY Procedure Laterality Date COLONOSCOPY FLX DX W/COLLJ SPEC WHEN PFRMD 01/23/08 Normal COLONOSCOPY FLX DX W/COLLJ SPEC WHEN PFRMD 01/09/2012 Colonoscopy DIAGNOSTIC ARTHROSCOPY SHOULDER +- SYNOVIAL BX Right 04/10/2017 Right shoulder arthroscopy with open SAD and rotator cuff repair EGD TRANSORAL BIOPSY SINGLE/MULTIPLE 01/23/08 Minimal antral gastritis HEART CATHETERIZATION 01/2016 no intervention Partial hysterectomy still has ovaries PAST SURGICAL HISTORY OF 02/2016 total teeth extraction RMVL LENS MATERIAL PHACOFRAGMENTATION ASPIR 12/2010 Cataract Extraction RPR UMBILICAL HRNA 5 YRS/> REDUCIBLE 12/04/2016 Hernia repair, umbilical >5yr SURGICAL ARTHROSCOPY SHOULDER W/ROTATOR CUFF RPR Right 01/01/2018 Right shoulder arthroscopy SAD, Acromioplasty, debridement glenohumeral joint, biceps tenotomy, RCR, superior capsular reconstruction ALLERGIES Amlodipine, Ativan [Lorazepam], Baclofen, Methotrexate, Nadolol, Nexium [Esomeprazole Magnesium], Penicillin G, and Propranolol MEDICATIONS meloxicam (MOBIC) 7.5 mg tablet Take 1 tablet by mouth two times a day. atorvastatin (LIPITOR) 40 mg tablet TAKE ONE TABLET BY MOUTH DAILY AT 9PM AT BEDTIME pregabalin (LYRICA) 75 mg capsule Take 1 capsule by mouth two times a day for 180 days. furosemide (LASIX) 40 mg tablet TAKE ONE TABLET BY MOUTH DAILY AT 9AM Strength: 40 mg ondansetron orally disintegrating (ZOFRAN ODT) 4 mg disintegrating tablet Take 1 tablet by mouth every 8 hours as needed. tiZANidine (ZANAFLEX) 4 mg tablet Take 1 tablet by mouth every 8 hours as needed. busPIRone (BUSPAR) 10 mg tablet Take 1 tablet by mouth three times a day. SUMAtriptan (IMITREX) 50 mg tablet Take 1 tablet (50 mg) by mouth as needed for migraine headache (see administration instructions). START AT ONSET OF HEADACHE. MAY REPEAT DOSE AFTER 2 HOURS. traZODone (DESYREL) 50 mg tablet Take 1 tablet by mouth daily at bedtime. loperamide (IMODIUM) 2 mg cap(s) Take 1 capsule by mouth three times a day as needed. hydrOXYzine HCl (ATARAX) 50 mg tablet Take 1 tablet by mouth every 8 hours as needed for anxiety. escitalopram oxalate (LEXAPRO) 20 mg tablet Take 1 tablet by mouth once daily. lisinopril (ZESTRIL) 40 mg tablet Take 1 tablet by mouth once daily. fluticasone-salmeterol (ADVAIR, WIXELA) 250-50 mcg/dose inhaler Inhale 1 Puff as instructed two times a day. potassium chloride ER (KLOR-CON) 20 mEq tablet Take 20 mEq by mouth. albuterol HFA (PROAIR HFA) 90 mcg/actuation inhaler Inhale 2 Puffs as instructed. nitroglycerin (more content not included)...[facility]10-09-2024 History of Present illness Narrative* Dali Rice APRN.PLATE FILLER - 12/11/2023 2:06 PM EDT CC: Patient presents with: Recheck: HTN follow up HPI Leyda Lopez is a 62 year old female who presents today for blood pressure follow up. Was gómez few weeks ago and lyrica increased to help with pain control as the pain was thought to increase her blood pressure. HTN: Ms. Lopez indicates that she is feeling well and denies any symptoms referable to elevatedblood pressure. Specifically denies headache, chest pain, palpitations, dyspnea, and peripheral edema. Patient denies any side effects of her medication(s) and is compliant with their regimen. She does not check BP's generally. Leyda denies regular aerobic exercise. She watches her diet for sodium, low fat and low cholesterol most of the time. Last 3 Encounter BP Readings: Date: BP: 12/11/2023 128/80 11/12/2023 174/106 11/06/2023 138/92 Ongoing pain. Patient denies much improvement with increase of lyrica. Would like NSAIDs but no recent kidney function. Has used steroids in the past with great improvement but tried to use minimallydue to osteoporosis. Has only been on twice this year in small amounts for breathing issues. Has appointment next month with pain mgmt. REVIEW OF SYSTEMS See HPI PAST MEDICAL HISTORY Diagnosis Date Abdominal pain, right upper quadrant ADD (attention deficit disorder) Seeing psychiatry Anemia, unspecified Asthma Back pain chronic-Seeing Dr. Blankenship Bipolar affective disorder ([facility]) Chronic right shoulder pain Seeing Dr. Molina Closed dislocation of tarsometatarsal (joint) 01/18/2011 COPD (chronic obstructive pulmonary disease) ([facility]) Depressive disorder, not elsewhere classified 03/22/2005 Disorder of bone and cartilage, unspecified 02/09/2008 Distal radius fracture 01/05/2011 Dysuria Fibromyalgia GERD (gastroesophageal reflux disease) IBS (irritable bowel syndrome) Mitral regurgitation Severe Neck pain chronic-takes vicodin for this NSTEMI (non-ST elevated myocardial infarction) ([facility]) Seeing Dr. Hutton Other and unspecified hyperlipidemia Panic disorder without agoraphobia 03/22/2005 PMR (polymyalgia rheumatica) ([facility]) RA (rheumatoid arthritis) ([facility]) Unspecified essential hypertension 03/22/2005 PAST SURGICAL HISTORY Procedure Laterality Date COLONOSCOPY FLX DX W/COLLJ SPEC WHEN PFRMD 01/23/08 Normal COLONOSCOPY FLX DX W/COLLJ SPEC WHEN PFRMD 01/09/2012 Colonoscopy DIAGNOSTIC ARTHROSCOPY SHOULDER +- SYNOVIAL BX Right 04/10/2017 Right shoulder arthroscopy with open SAD and rotator cuff repair EGD TRANSORAL BIOPSY SINGLE/MULTIPLE 01/23/08 Minimal antral gastritis HEART CATHETERIZATION 01/2016 no intervention Partial hysterectomy still has ovaries PAST SURGICAL HISTORY OF 02/2016 total teeth extraction RMVL LENS MATERIAL PHACOFRAGMENTATION ASPIR 12/2010 Cataract Extraction RPR UMBILICAL HRNA 5 YRS/> REDUCIBLE 12/04/2016 Hernia repair, umbilical >5yr SURGICAL ARTHROSCOPY SHOULDER W/ROTATOR CUFF RPR Right 01/01/2018 Right shoulder arthroscopy SAD, Acromioplasty, debridement glenohumeral joint, biceps tenotomy, RCR, superior capsular reconstruction ALLERGIES Amlodipine, Ativan [Lorazepam], Baclofen, Methotrexate, Nadolol, Nexium [Esomeprazole Magnesium], Penicillin G, and Propranolol MEDICATIONS meloxicam (MOBIC) 7.5 mg tablet Take 1 tablet by mouth two times a day. atorvastatin (LIPITOR) 40 mg tablet TAKE ONE TABLET BY MOUTH DAILY AT 9PM AT BEDTIME pregabalin (LYRICA) 75 mg capsule Take 1 capsule by mouth two times a day for 180 days. furosemide (LASIX) 40 mg tablet TAKE ONE TABLET BY MOUTH DAILY AT 9AM Strength: 40 mg ondansetron orally disintegrating (ZOFRAN ODT) 4 mg disintegrating tablet Take 1 tablet by mouth every 8 hours as needed. tiZANidine (ZANAFLEX) 4 mg tablet Take 1 tablet by mouth every 8 hours as needed. busPIRone (BUSPAR) 10 mg tablet Take 1 tablet by mouth three times a day. SUMAtriptan (IMITREX) 50 mg tablet Take 1 tablet (50 mg) by mouth as needed for migraine headache (see administration instructions). START AT ONSET OF HEADACHE. MAY REPEAT DOSE AFTER 2 HOURS. traZODone (DESYREL) 50 mg tablet Take 1 tablet by mouth daily at bedtime. loperamide (IMODIUM) 2 mg cap(s) Take 1 capsule by mouth three times a day as needed. hydrOXYzine HCl (ATARAX) 50 mg tablet Take 1 tablet by mouth every 8 hours as needed for anxiety. escitalopram oxalate (LEXAPRO) 20 mg tablet Take 1 tablet by mouth once daily. lisinopril (ZESTRIL) 40 mg tablet Take 1 tablet by mouth once daily. fluticasone-salmeterol (ADVAIR, WIXELA) 250-50 mcg/dose inhaler Inhale 1 Puff as instructed two times a day. potassium chloride ER (KLOR-CON) 20 mEq tablet Take 20 mEq by mouth. albuterol HFA (PROAIR HFA) 90 mcg/actuation inhaler Inhale 2 Puffs as instructed. nitroglycerin sublingual (NITROQUICK) 0.4 mg SL tablet Dissolve 0.4 mg under the tongue every 5 minutes as needed for chest pain. acetaminophen 325 mg cap Take by mouth. Dexlansoprazole (DEXILANT) 60 mg CpDM TAKE ONE CAPSULE BY MOUTH DAILY AT 9AM fluticasone (FLONASE) 50 mcg/actuation nasal spray INSTILL 2 SPRAYS IN EACH NOSTRIL DAILY RINSE MOUTH AFTER USE (BULK) hyoscyamine sublingual (LEVSIN SL) 0.125 mg Dissolve 1 tablet under the tongue three times daily asneeded. ipratropium (ATROVENT) 0.02 % nebulizer solution Use 2.5 mL via nebulizer four times daily as needed for Wheezing/Shortness of Breath. Use over 5-15minutes. Dx:J45.40 Cholecalciferol, Vitamin D3, 2,000 unit tab Take 2 tablets by mouth once daily. FAMILY HISTORY Problem Relation Age of Onset COPD Mother Breast Cancer Mother Heart Father DC COPD Father other (Pulmonary fibrosis) Father Social History Tobacco Use Smoking status: Former Current packs/day: 0.00 Average packs/day: 0.5 packs/day for 20.0 years (10.0 ttl pk-yrs) Types: Cigarettes Start date: 1973 Quit date: 03/04/1989 Years since quittin.7 Smokeless tobacco: Never Tobacco comments: Both parents smoked in childhood home. Lived with smoker as adult. Vaping Use Vaping status: Never Used Substance Use Topics Alcohol use: No Drug use: No PHYSICAL EXAM BP 128/80 Pulse 77 Resp 16 Wt 58.5 kg (129 lb) SpO2 97% BMI 27.43 kg/m General Appearance: well appearing, in no acute distress, alert Lungs: Lungs clear to auscultation. No wheezing, rhonchi, rales. Heart: RRR without murmur, gallop, or rubs. No ectopy Health maintenance reviewed with patient: BP Controlled (<130/80) Never done Mammogram Screening due on 08/06/2017 Colorectal Cancer Screening due on 01/08/2022 Influenza Vaccine(1) due on 11/03/2023 Covid-19 Vaccine( - season) Never done Alpha-1 Antitrypsin Deficiency Screening due on 05/01/2024 RSV Vaccine(1 - Risk 60-74 years 1-dose series) due on 05/01/2024 Shingrix Vaccine(1 of 2) due on 05/01/2024 Pneumococcal Vaccine(2 of 2 - PCV) due on 05/01/2024 Hemoglobin/Hematocrit due on 02/12/2024 Serum Creatinine due on 06/09/2024 Annual PCP Team Chronic Disease Visit due on 11/05/2024 Diabetes Screening due on 06/09/2026 Lipid Screening due on 02/12/2028 DTaP,Tdap,Td Vaccine(3 - Td or Tdap) due on 07/22/2028 Spirometry Completed Hepatitis C Screening Completed HIV Screening Completed Cervical Cancer Screening Discontinued DATA REVIEWED: No new labs ASSESSMENT/PLAN: 1. Essential hypertension - ICD9: 401.9, ICD10: I10 (primary diagnosis) - Controlled - Continue current medications - Recommend home blood pressure monitoring, to bring results to next visit - Encouraged sodium restriction, DASH or Mediterranean diet - Recommend regular aerobic exercise - LISINOPRIL 40 MG TABLET - BASIC METABOLIC PANEL - COMPLETE BLOOD COUNT 2. Thoracic degenerative disc disease - ICD9: 722.51, ICD10: M51.34 Prednisone as ordered Keep upcoming appointment with pain mgmt 3. Pain syndrome, chronic - ICD9: 338.4, ICD10: G89.4 As above 4. Encounter for immunization - ICD9: V03.89, ICD10: Z23 - INFLUENZA VACCINE, AGE 6MO-64YR, TRIVALENT (AFLURIA, FLULAVAL, FLUVIRIN, FLUZONE) Prescription instructions reviewed with patient as applicable. Potential red flag symptoms discussed with the patient. Reviewed appropriate action plan to take if red flag symptoms occur. Patient agreeable to treatment plan. Dali Rice APRN.CNP documented [facility] Telephone encounter Note * Telephone Encounter - Dali Rice APRN.CNP - 11/18/2023 7:20 AM EDT Noted. Will await appointment or patient's return call Dali Rice APRN.CNP [facility]09-16-[facility] Miscellaneous Notes* Telephone Encounter - Dail Rice APRN.CNP - 11/18/2023 7:20 AM EDT Noted. Will await appointment or patient's return call Dali Rice APRN.CNP * Telephone Encounter - Cara Palomo LPN - 11/16/2023 11:12 AM EDT Pt calling regarding medicines. She says she called son and they report her medicines [facility]. She is specifically asking about the trazadone and the zanaflex. In review [facility] will call [facility] again. She also was asking about a new blood pressure machine. She will get this at her 11/25/23 appt with [facility]. documented in this [facility]24 Telephone encounter Note * Telephone Encounter - Cara Palomo LPN - 11/16/2023 11:12 AM EDT Pt calling regarding medicines. She says she called [facility] and they report her medicines were transferred to [facility]. She is specifically asking about the trazadone and the zanaflex. In review [facility] did not [facility]. She will call [facility] again. She also was asking about a new blood pressure machine. She will get this at her 11/25/23 appt with [facility]. [facility]09-10-[facility] History of Present illness Narrative* Mari Martinez APRN.PLATE FILLER - 11/12/2023 1:00 PM EDT Chief complaint: Osteoporosis HPI: At [facility]: -10/2022 DEXA: lowest T-score -2.8 to left femoral neck, with decrease to Left femoral neck -Fractures: She reports traumatic fracture to the L foot and a wrist (she does not recall which wrist) years ago -Treatment: none -+ history of GERD, taking OTC antacid -she denies history of parental hip fracture. Mother had OP. -she denies use of antiseizure medications, joint terminal attack controller steroids, or hormone replacement therapy -she denies any history of cancer or radiation therapy -reports hx LIU.+ hx CHF. No hx of stroke. -she denies history of kidney stones, + CKD -menarche: age 12 menopause: age 45-50, s/p hysterectomy Has hx of Fibromyalgia: taking lyrica, elavil, lexapro, and zanaflex Patient reports hx of RA, which is not documented. PAST MEDICAL HISTORY No date: Abdominal pain, right upper quadrant No date: ADD (attention deficit disorder) Comment: Seeing psychiatry No date: Anemia, unspecified No date: Asthma No date: Back pain Comment: chronic-Seeing Dr. Blankenship No date: Bipolar affective disorder ([facility]) No date: Chronic right shoulder pain Comment: Seeing Dr. Molina 01/18/2011: Closed dislocation of tarsometatarsal (joint) No date: COPD (chronic obstructive pulmonary disease) ([facility]) 03/22/2005: Depressive disorder, not elsewhere classified 02/09/2008: Disorder of bone and cartilage, unspecified 01/05/2011: Distal radius fracture No date: Dysuria No date: Fibromyalgia No date: GERD (gastroesophageal reflux disease) No date: IBS (irritable bowel syndrome) No date: Mitral regurgitation Comment: Severe No date: Neck pain Comment: chronic-takes vicodin for this No date: NSTEMI (non-ST elevated myocardial infarction) ([facility]) Comment: Seeing Dr. Hutton No date: Other and unspecified hyperlipidemia 03/22/2005: Panic disorder without agoraphobia No date: PMR (polymyalgia rheumatica) ([facility]) No date: RA (rheumatoid arthritis) ([facility]) 03/22/2005: Unspecified essential hypertension PAST SURGICAL HISTORY 01/23/08: COLONOSCOPY FLX DX W/COLLJ SPEC WHEN PFRMD Comment: Normal 01/09/2012: COLONOSCOPY FLX DX W/COLLJ SPEC WHEN PFRMD Comment: Colonoscopy 04/10/2017: DIAGNOSTIC ARTHROSCOPY SHOULDER +- SYNOVIAL BX; Right Comment: Right shoulder arthroscopy with open SAD and rotator cuff repair 01/23/08: EGD TRANSORAL BIOPSY SINGLE/MULTIPLE Comment: Minimal antral gastritis 01/2016: HEART CATHETERIZATION Comment: no intervention No date: Partial hysterectomy Comment: still has ovaries 02/2016: PAST SURGICAL HISTORY OF Comment: total teeth extraction 12/2010: RMVL LENS MATERIAL PHACOFRAGMENTATION ASPIR Comment: Cataract Extraction 12/04/2016: RPR UMBILICAL HRNA 5 YRS/> REDUCIBLE Comment: Hernia repair, umbilical >5yr 01/01/2018: SURGICAL ARTHROSCOPY SHOULDER W/ROTATOR CUFF RPR; Right Comment: Right shoulder arthroscopy SAD, Acromioplasty, debridement glenohumeral joint, biceps tenotomy, RCR, superior capsular reconstruction Family History Problem Relation Age of Onset COPD Mother Breast Cancer Mother Heart Father DC COPD Father other (Pulmonary fibrosis) Father ALLERGIES Allergen Reactions Amlodipine Other: See Comments shaky and jittery Ativan [Lorazepam] Mental Status Change, Vomiting mood swings Baclofen Mental Status Change angry,mood effect Methotrexate Vomiting abdomen pain,vomiting, sbo Nadolol Intolerance body burning,tingly Nexium [Esomeprazol* Other: See Comments reflux-no relief Penicillin G GI Upset patient reports these symptoms after medication was ordered Propranolol Intolerance fatigue,sleepy SOCIAL HISTORY: She lives in [place]. with 1 daughter. Caffeine: 2-3, 16 ounce bottles of pop per day- decreased intake advised Alcohol: none Smoking: former smoker, quit 15 years ago Exercise: no routine exercise INTERVAL HISTORY She is here for follow up. She is accompanied by her . I recommended treatment with reclast, but she never scheduled. She reports a couple falls since the [facility]. No fractures since the [facility]. No invasive dental work in the last three months and none planned. She is edentulous. No jaw pain. + b/l thigh pain. No recent infections. She is taking Calcium and Vitamin D. Pain is worst later in the day. Sites of pain: b/l cmc joints, entire spine, pain rated 9/10 Joint swelling: intermittent to hands, not now EMS: yes, lasting 5 minutes Headaches: no temporal headaches Scalp tenderness: none Vision changes: none Answers submitted by the patient for this visit: Review of Systems Rheumatology (Submitted on 10/29/2023) Fever : No Recent unintentional weight change: No Eye pain: No Eye redness: No Vision Disturbance: Yes Eye Dryness: Yes Sores in your mouth: No Trouble Swallowing: Yes Dry Mouth: Yes Chest pain: No Leg Swelling: Yes A cough: No Shortness of breath: Yes Pain with breathing: Yes Heartburn: Yes Abdominal pain: Yes Diarrhea: Yes Black tarry stools: No Blood in urine: No Pain or burning with urination: No Joint pain or stiffness: Yes Muscle weakness: Yes Muscle aches: Yes Joint swelling: Yes Morning Stiffness in Joints: Yes A rash: No Skin Color Changes: No Hair Loss: Yes Nail Changes: No Headaches: Yes Numbness: Yes Memory Loss: Yes Swollen Glands: No PHYSICAL EXAMINATION: BP 174/106 Pulse 85 Temp 36.7 C (98 F) (Temporal) Ht 146.1 cm (4' 9.5) Wt 57.6 kg (127 lb) BMI 27.01 kg/m General appearance: Well appearing, alert, in no acute distress, well-hydrated, well nourished. Skin: Skin color, texture, turgor normal, no suspicious rashes or lesions Oropharynx: Lips, mucosa, and tongue normal, she is edentulous Head: no tenderness to scalp or temples Neck: Supple, no adenopathy Lungs: Lungs clear to auscultation. No wheezing, rhonchi, rales. Heart: RRR without murmur Abdomen: Normal abdominal exam, Abdomen soft, non-tender. Bowel sounds normal. No masses, organomegaly Neuro: Gait normal. Sensation grossly intact. JOINTS: TENDER JOINTS: R elbow, L cmc joint SWOLLEN JOINTS: none + squaring of b/l cmc joints She is able to make a complete fist with both hands No tenderness to muscles +kyphosis + tenderness to thoracic and lumbar spine Labs reviewed and discussed with the patient: Latest Ref Rng 06/10/2023 Glucose 74 - 99 mg/dL 109 (H) BUN 7 - 21 mg/dL 31 (H) Creatinine 0.58 - 0.96 mg/dL 1.12 (H) Sodium 136 - 144 mmol/L 142 Potassium 3.7 - 5.1 mmol/L 4.7 Chloride 97 - 105 mmol/L 101 CO2 22 - 30 mmol/L 25 Anion Gap 9 - 18 mmol/L 16 Calcium 8.5 - 10.2 mg/dL 9.5 eGFR >=60 mL/min/1.73m 56 (L) Latest Ref Rng 04/29/2023 Creatinine 0.58 - 0.96 mg/dL 1.08 (H) eGFR >=60 mL/min/1.73m 58 (L) CCP Antibody IgG Qualitative Negative Negative CCP Antibody, IgG <20 Units <15 Calcium 8.5 - 10.2 mg/dL 9.3 Vitamin D 25 Hydroxy 31.0 - 80.0 ng/mL 31.4 Magnesium 1.7 - 2.3 mg/dL 1.8 Phosphorus 2.7 - 4.8 mg/dL 4.0 PTH, Intact 15 - 65 pg/mL 62 C Telopeptide, Beta Cross Linked 171 - 970 pg/mL 1,023 (H) WSR 0 - 20 mm/hr 14 CRP <0.9 mg/dL 0.3 Rheumatoid Factor <16 IU/mL <10 Component Latest Ref Rng & Units 08/11/2020 Magnesium 1.7 - 2.3 mg/dL 1.8 Component Latest Ref Rng & Units 11/28/2007 PTH, Intact 10 - 60 pg/mL 62 (H) Component Latest Ref Rng & Units 08/11/2020 Vitamin D 25 Hydroxy 31.0 - 80.0 ng/mL 48.0 STUDIES: 09/2023 wrists x-rays: IMPRESSION: No acute fracture. Degenerative disease of bilateral wrists. 04/2023 hand x-rays IMPRESSION: 1. Osteoarthritis of the bilateral hands 10/2022 DEXA: LUMBAR SPINE: The bone mineral density from L1 through L4 is 0.809 grams per square centimeter which yields a T-score of -2.2.. LEFT FEMORAL NECK: The bone mineral density of the femoral neck is 0.539 grams per square centimeter which yields a T-score of -2.8.. Previous bone density 0.666 this is a statistically significant decrease in bone density LEFT HIP: The bone mineral density of the total region of the hip is 0.707 grams per square centimeter which yields a T-score of -1.9.. RIGHT FEMORAL NECK: The bone mineral density of the femoral neck is 0.549 grams per square centimeter which yields a T-score of -2.7.. RIGHT HIP: The bone mineral density of the total region of the hip is 0.725 grams per square centimeter which yields a T-score of -1.8.. 10-year Fracture Risk (FRAX): Major osteoporotic fracture risk 33% Hip fracture risk 8.7% Widespread Pain Index: (0-19) 16 Symptoms Severity Scale: (0-12) 10 WPI>7 and SS Scale>5 OR WPI 3-6 and SS Scale >9 consistent with fibromyalgia ASSESSMENT/PLAN: 1. Osteoporosis: 62 year old post menopausal female. No history of fragility fractures. No prior treatment. Former smoker, +hx of GERD, CKD, and CHF. 10/2022 DEXA: lowest T-score -2.8 to left femoral neck, with decrease to Left femoral neck -diagnosis discussed and handout on OP was previously given to the patient -I again recommended treatment with reclast, pending lab results and PA approval. I explained that reclast can cause an infusion reaction, flu-like symptoms, joint pain, jaw osteonecrosis, and atypical femur fractures. To decrease the risk for the jaw issue, it is advised to not start reclast if there are plans for upcoming invasive dental procedures like a tooth extraction, or if one has been done in the last 3 months. If there has been recent or are plans for dental procedures, then we would need to wait at least 3 months after the procedure has been done before starting reclast. Handout onreclast was previously given to the patient. We will contact her pending lab results and PA. -continue calcium and vit d -fall precautions -weight bearing exercise encouraged as tolerated -she was advised to contact our office if she has any interim fractures -next DEXA due 10/2024 -will check labs today 2. Fibromyalgia: Meets criteria based on WPI/SS scale score as above. - Explained diagnosis and provided literature on fibromyalgia for review - Advised aerobic exercise - Please refer to the fibromyalgia treatment guidelines as detailed in 04/2023 progress note for further management by PCP -consult placed to pain management 3. Joint pain: - exam and imaging are consistent with OA - may take tylenol up to 3,000 mg daily as needed 4. Hx of PMR: -has taken steroids in the past for this -no evidence of active PMR on exam today 5. General health maintenance -she was advised to f/u with her pcp for her general health concerns -she was advised to f/u with her pcp for elevated BP. I advised that she monitor her BP at home andgo to urgent care of ED if it remains elevated. RTC in 6 months, sooner for reclast . Mari Martinez APRN.MARIETTA documented in this encounter[facility] NoteHNO ID: [id number] Author: MARI MARTINEZ APRN.CNP Service: ? Author Type: Nurse Practitioner Type: Progress Notes Filed: 11/12/2023 13:29 Note Text: Chief complaint: Osteoporosis HPI: At [facility]: -10/2022 DEXA: lowest T-score -2.8 to left femoral neck, with decrease to Left femoral neck -Fractures: She reports traumatic fracture to the L foot and a wrist (she does not recall which wrist) years ago -Treatment: none -+ history of GERD, taking OTC antacid -she denies history of parental hip fracture. Mother had OP. -she denies use of antiseizure medications, prison steroids, or hormone replacement therapy -she denies any history of cancer or radiation therapy -reports hx LIU.+ hx CHF. No hx of stroke. -she denies history of kidney stones, + CKD -menarche: age 12 menopause: age 45-50, s/p hysterectomy Has hx of Fibromyalgia: taking lyrica, elavil, lexapro, and zanaflex Patient reports hx of RA, which is not documented. PAST MEDICAL HISTORY No date: Abdominal pain, right upper quadrant No date: ADD (attention deficit disorder) Comment: Seeing psychiatry No date: Anemia, unspecified No date: Asthma No date: Back pain Comment: chronic-Seeing Dr. Blankenship No date: Bipolar affective disorder ([facility]) No date: Chronic right shoulder pain Comment: Seeing Dr. Molina 01/18/2011: Closed dislocation of tarsometatarsal (joint) No date: COPD (chronic obstructive pulmonary disease) ([facility]) 03/22/2005: Depressive disorder, not elsewhere classified 02/09/2008: Disorder of bone and cartilage, unspecified 01/05/2011: Distal radius fracture No date: Dysuria No date: Fibromyalgia No date: GERD (gastroesophageal reflux disease) No date: IBS (irritable bowel syndrome) No date: Mitral regurgitation Comment: Severe No date: Neck pain Comment: chronic-takes vicodin for this No date: NSTEMI (non-ST elevated myocardial infarction) ([facility]) Comment: Seeing Dr. Hutton No date: Other and unspecified hyperlipidemia 03/22/2005: Panic disorder without agoraphobia No date: PMR (polymyalgia rheumatica) ([facility]) No date: RA (rheumatoid arthritis) ([facility]) 03/22/2005: Unspecified essential hypertension PAST SURGICAL HISTORY 01/23/08: COLONOSCOPY FLX DX W/COLLJ SPEC WHEN PFRMD Comment: Normal 01/09/2012: COLONOSCOPY FLX DX W/COLLJ SPEC WHEN PFRMD Comment: Colonoscopy 04/10/2017: DIAGNOSTIC ARTHROSCOPY SHOULDER +- SYNOVIAL BX; Right Comment: Right shoulder arthroscopy with open SAD and rotator cuff repair 01/23/08: EGD TRANSORAL BIOPSY SINGLE/MULTIPLE Comment: Minimal antral gastritis 01/2016: HEART CATHETERIZATION Comment: no intervention No date: Partial hysterectomy Comment: still has ovaries 02/2016: PAST SURGICAL HISTORY OF Comment: total teeth extraction 12/2010: RMVL LENS MATERIAL PHACOFRAGMENTATION ASPIR Comment: Cataract Extraction 12/04/2016: RPR UMBILICAL HRNA 5 YRS/> REDUCIBLE Comment: Hernia repair, umbilical >5yr 01/01/2018: SURGICAL ARTHROSCOPY SHOULDER W/ROTATOR CUFF RPR; Right Comment: Right shoulder arthroscopy SAD, Acromioplasty, debridement glenohumeral joint, biceps tenotomy, RCR, superior capsular reconstruction Family History Problem Relation Age of Onset COPD Mother Breast Cancer Mother Heart Father DC COPD Father other (Pulmonary fibrosis) Father ALLERGIES Allergen Reactions Amlodipine Other: See Comments shaky and jittery Ativan [Lorazepam] Mental Status Change, Vomiting mood swings Baclofen Mental Status Change angry,mood effect Methotrexate Vomiting abdomen pain,vomiting, sbo Nadolol Intolerance body burning,tingly Nexium [Esomeprazol* Other: See Comments reflux-no relief Penicillin G GI Upset patient reports these symptoms after medication was ordered Propranolol Intolerance fatigue,sleepy SOCIAL HISTORY: She lives in [place]. with 1 daughter. Caffeine: 2-3, 16 ounce bottles of pop per day- decreased intake advised Alcohol: none Smoking: former smoker, quit 15 years ago Exercise: no routine exercise INTERVAL HISTORY She is here for follow up. She is accompanied by her . I recommended treatment with reclast, but she never scheduled. She reports a couple falls since the [facility]. No fractures since the [facility]. No invasive dental work in the last three months and none planned. She is edentulous. No jaw pain. + b/l thigh pain. No recent infections. She is taking Calcium and Vitamin D. Pain is worst later in the day. Sites of pain: b/l cmc joints, entire spine, pain rated 9/10 Joint swelling: intermittent to hands, not now EMS: yes, lasting 5 minutes Headaches: no temporal headaches Scalp tenderness: none Vision changes: none Answers submitted by the patient for this visit: Review of Systems Rheumatology (Submitted on 10/29/2023) Fever : No Recent unintentional weight change: No Eye pain: No Eye redness: No Vision Disturbance: Yes Eye Dryness: Yes Sores in your mout (more content not included)...[facility] 11-12-2023 Instructions* Patient Instructions* Mari Martinez APRN.CNP - 11/12/2023 12:59 PM EDT Please schedule 6 month follow up with Dr. Obrien or Dr. Mittal to establish care [facility] Telephone encounter Note * Telephone Encounter - Janes Webb MA - 11/12/2023 9:53 AM EDT Prescription Refill Information The patient has been identified by name and date of : Yes Caregiver verified no other encounters exist for this prescription request: Yes Caregiver confirmed with patient/requestor that no other refills are due, in the near future, with this provider at this time: Yes The last office visit in the department: 11/06/2023 Does the patient have a future office visit with this provider/department: Yes Requested Prescriptions Pending Prescriptions Disp Refills meloxicam (MOBIC) 7.5 mg tablet 60 tablet 0 Sig: Take 1 tablet by mouth two times a day. Janes Webb MA November 12, 2023 9:53 AM [facility]09-10-[facility]24 Miscellaneous Notes* Telephone Encounter - Janes Webb MA - 11/12/2023 9:53 AM EDT Prescription Refill Information The patient has been identified by name and date of : Yes Caregiver verified no other encounters exist for this prescription request: Yes Caregiver confirmed with patient/requestor that no other refills are due, in the near future, with this provider at this time: Yes The last office visit in the department: 11/06/2023 Does the patient have a future office visit with this provider/department: Yes Requested Prescriptions Pending Prescriptions Disp Refills meloxicam (MOBIC) 7.5 mg tablet 60 tablet 0 Sig: Take 1 tablet by mouth two times a day. Janes Webb MA November 12, 2023 9:53 AM documented in this encounterMer[facility]-04-[facility]24 NoteHNO ID: [id number] Author: DALI RICE APRN.MARIETTA Service: ? Author Type: Nurse Practitioner Type: Progress Notes Filed: 11/06/2023 14:50 Note Text: CC: Patient presents with: Recheck: BP follow up blood pressure HPI Leyda Lopez is a 62 year old female who presents today for blood pressure follow up but feels BP is elevated due to uncontrolled pain. HTN and HLD: Ms. Lopez indicates that she is feeling well and denies any symptoms referable to elevated blood pressure. Specifically denies headache, chest pain, palpitations, dyspnea, and peripheral edema. Patient denies any side effects of her medication(s) and is compliant with their regimen. She does not check BP's generally but checked it a few days ago and says it was 110s/80s but pain was controlled at that time. Leyda denies regular aerobic exercise. She watches her diet for sodium, low fat and low cholesterol most of the time. Last 3 Encounter BP Readings: Date: BP: 11/06/2023 152/100 - 138/92 10/22/2023 162/86 09/27/2023 147/92 Recent xray showing severe thoracic degeneration with possible compression deformities. Has not seen pain mgmt as ordered and is not on any medication to improve bone density but is seeing rheumatology again soon. No new symptoms or concerns but requesting increase in lyrica to help her be more comfortable. REVIEW OF SYSTEMS See HPI PAST MEDICAL HISTORY No date: Abdominal pain, right upper quadrant No date: ADD (attention deficit disorder) Comment: Seeing psychiatry No date: Anemia, unspecified No date: Asthma No date: Back pain Comment: chronic-Seeing Dr. Blankenship No date: Bipolar affective disorder (HCC) No date: Chronic right shoulder pain Comment: Seeing Dr. Molina 01/18/2011: Closed dislocation of tarsometatarsal (joint) No date: COPD (chronic obstructive pulmonary disease) ([facility]) 03/22/2005: Depressive disorder, not elsewhere classified 02/09/2008: Disorder of bone and cartilage, unspecified 01/05/2011: Distal radius fracture No date: Dysuria No date: Fibromyalgia No date: GERD (gastroesophageal reflux disease) No date: IBS (irritable bowel syndrome) No date: Mitral regurgitation Comment: Severe No date: Neck pain Comment: chronic-takes vicodin for this No date: NSTEMI (non-ST elevated myocardial infarction) ([facility]) Comment: Seeing Dr. Hutton No date: Other and unspecified hyperlipidemia 03/22/2005: Panic disorder without agoraphobia No date: PMR (polymyalgia rheumatica) ([facility]) No date: RA (rheumatoid arthritis) ([facility]) 03/22/2005: Unspecified essential hypertension PAST SURGICAL HISTORY 01/23/08: COLONOSCOPY FLX DX W/COLLJ SPEC WHEN PFRMD Comment: Normal 01/09/2012: COLONOSCOPY FLX DX W/COLLJ SPEC WHEN PFRMD Comment: Colonoscopy 04/10/2017: DIAGNOSTIC ARTHROSCOPY SHOULDER +- SYNOVIAL BX; Right Comment: Right shoulder arthroscopy with open SAD and rotator cuff repair 01/23/08: EGD TRANSORAL BIOPSY SINGLE/MULTIPLE Comment: Minimal antral gastritis 01/2016: HEART CATHETERIZATION Comment: no intervention No date: Partial hysterectomy Comment: still has ovaries 02/2016: PAST SURGICAL HISTORY OF Comment: total teeth extraction 12/2010: RMVL LENS MATERIAL PHACOFRAGMENTATION ASPIR Comment: Cataract Extraction 12/04/2016: RPR UMBILICAL HRNA 5 YRS/> REDUCIBLE Comment: Hernia repair, umbilical >5yr 01/01/2018: SURGICAL ARTHROSCOPY SHOULDER W/ROTATOR CUFF RPR; Right Comment: Right shoulder arthroscopy SAD, Acromioplasty, debridement glenohumeral joint, biceps tenotomy, RCR, superior capsular reconstruction ALLERGIES Amlodipine, Ativan [Lorazepam], Baclofen, Methotrexate, Nadolol, Nexium [Esomeprazole Magnesium], Penicillin G, and Propranolol MEDICATIONS furosemide (LASIX) 40 mg tablet TAKE ONE TABLET BY MOUTH DAILY AT 9AM Strength: 40 mg lisinopril (ZESTRIL) 40 mg tablet Take 1 tablet by mouth once daily. ondansetron orally disintegrating (ZOFRAN ODT) 4 mg disintegrating tablet Take 1 tablet by mouth every 8 hours as needed. tiZANidine (ZANAFLEX) 4 mg tablet Take 1 tablet by mouth every 8 hours as needed. busPIRone (BUSPAR) 10 mg tablet Take 1 tablet by mouth three times a day. SUMAtriptan (IMITREX) 50 mg tablet Take 1 tablet (50 mg) by mouth as needed for migraine headache (see administration instructions). START AT ONSET OF HEADACHE. MAY REPEAT DOSE AFTER 2 HOURS. traZODone (DESYREL) 50 mg tablet Take 1 tablet by mouth daily at bedtime. meloxicam (MOBIC) 7.5 mg tablet Take 1 tablet by mouth two times a day. loperamide (IMODIUM) 2 mg cap(s) Take 1 capsule by mouth three times a day as needed. hydrOXYzine HCl (ATARAX) 50 mg tablet Take 1 tablet by mouth every 8 hours as needed for anxiety. escitalopram oxalate (LEXAPRO) 20 mg tablet Take 1 tablet by mouth once daily. atorvastatin (LIPITOR) 40 mg tablet TAKE ONE TABLET BY MOUTH DAILY AT 9PM AT BEDTIME fluticasone-salmeterol (ADVAIR, WIXELA) 250-50 mcg/dose inhaler Inha (more content not included)...[facility]09-04-2024 History of Present illness Narrative* Dali Rice APRN.PLATE FILLER - 11/06/2023 2:23 PM EDT CC: Patient presents with: Recheck: BP follow up blood pressure HPI Leyda Lopez is a 62 year old female who presents today for blood pressure follow up but feelsBP is elevated due to uncontrolled pain. HTN and HLD: Ms. Lopez indicates that she is feeling well and denies any symptoms referable to elevated blood pressure. Specifically denies headache, chest pain, palpitations, dyspnea, and peripheral edema. Patient denies any side effects of her medication(s) and is compliant with their regimen. She does not check BP's generally but checked it a few days ago and says it was 110s/80s but pain was controlled at that time. Leyda denies regular aerobic exercise. She watches her diet for sodium, low fat and low cholesterol most of the time. Last 3 Encounter BP Readings: Date: BP: 11/06/2023 152/100 - 138/92 10/22/2023 162/86 09/27/2023 147/92 Recent xray showing severe thoracic degeneration with possible compression deformities. Has not seen pain mgmt as ordered and is not on any medication to improve bone density but is seeing rheumatology again soon. No new symptoms or concerns but requesting increase in lyrica to help her be more comfortable. REVIEW OF SYSTEMS See HPI PAST MEDICAL HISTORY No date: Abdominal pain, right upper quadrant No date: ADD (attention deficit disorder) Comment: Seeing psychiatry No date: Anemia, unspecified No date: Asthma No date: Back pain Comment: chronic-Seeing Dr. Blankenship No date: Bipolar affective disorder ([facility]) No date: Chronic right shoulder pain Comment: Seeing Dr. Molina 01/18/2011: Closed dislocation of tarsometatarsal (joint) No date: COPD (chronic obstructive pulmonary disease) ([facility]) 03/22/2005: Depressive disorder, not elsewhere classified 02/09/2008: Disorder of bone and cartilage, unspecified 01/05/2011: Distal radius fracture No date: Dysuria No date: Fibromyalgia No date: GERD (gastroesophageal reflux disease) No date: IBS (irritable bowel syndrome) No date: Mitral regurgitation Comment: Severe No date: Neck pain Comment: chronic-takes vicodin for this No date: NSTEMI (non-ST elevated myocardial infarction) ([facility]) Comment: Seeing Dr. Hutton No date: Other and unspecified hyperlipidemia 03/22/2005: Panic disorder without agoraphobia No date: PMR (polymyalgia rheumatica) ([facility]) No date: RA (rheumatoid arthritis) ([facility]) 03/22/2005: Unspecified essential hypertension PAST SURGICAL HISTORY 01/23/08: COLONOSCOPY FLX DX W/COLLJ SPEC WHEN PFRMD Comment: Normal 01/09/2012: COLONOSCOPY FLX DX W/COLLJ SPEC WHEN PFRMD Comment: Colonoscopy 04/10/2017: DIAGNOSTIC ARTHROSCOPY SHOULDER +- SYNOVIAL BX; Right Comment: Right shoulder arthroscopy with open SAD and rotator cuff repair 01/23/08: EGD TRANSORAL BIOPSY SINGLE/MULTIPLE Comment: Minimal antral gastritis 01/2016: HEART CATHETERIZATION Comment: no intervention No date: Partial hysterectomy Comment: still has ovaries 02/2016: PAST SURGICAL HISTORY OF Comment: total teeth extraction 12/2010: RMVL LENS MATERIAL PHACOFRAGMENTATION ASPIR Comment: Cataract Extraction 12/04/2016: RPR UMBILICAL HRNA 5 YRS/> REDUCIBLE Comment: Hernia repair, umbilical >5yr 01/01/2018: SURGICAL ARTHROSCOPY SHOULDER W/ROTATOR CUFF RPR; Right Comment: Right shoulder arthroscopy SAD, Acromioplasty, debridement glenohumeral joint, biceps tenotomy, RCR, superior capsular reconstruction ALLERGIES Amlodipine, Ativan [Lorazepam], Baclofen, Methotrexate, Nadolol, Nexium [Esomeprazole Magnesium], Penicillin G, and Propranolol MEDICATIONS furosemide (LASIX) 40 mg tablet TAKE ONE TABLET BY MOUTH DAILY AT 9AM Strength: 40 mg lisinopril (ZESTRIL) 40 mg tablet Take 1 tablet by mouth once daily. ondansetron orally disintegrating (ZOFRAN ODT) 4 mg disintegrating tablet Take 1 tablet by mouth every 8 hours as needed. tiZANidine (ZANAFLEX) 4 mg tablet Take 1 tablet by mouth every 8 hours as needed. busPIRone (BUSPAR) 10 mg tablet Take 1 tablet by mouth three times a day. SUMAtriptan (IMITREX) 50 mg tablet Take 1 tablet (50 mg) by mouth as needed for migraine headache (see administration instructions). START AT ONSET OF HEADACHE. MAY REPEAT DOSE AFTER 2 HOURS. traZODone (DESYREL) 50 mg tablet Take 1 tablet by mouth daily at bedtime. meloxicam (MOBIC) 7.5 mg tablet Take 1 tablet by mouth two times a day. loperamide (IMODIUM) 2 mg cap(s) Take 1 capsule by mouth three times a day as needed. hydrOXYzine HCl (ATARAX) 50 mg tablet Take 1 tablet by mouth every 8 hours as needed for anxiety. escitalopram oxalate (LEXAPRO) 20 mg tablet Take 1 tablet by mouth once daily. atorvastatin (LIPITOR) 40 mg tablet TAKE ONE TABLET BY MOUTH DAILY AT 9PM AT BEDTIME fluticasone-salmeterol (ADVAIR, WIXELA) 250-50 mcg/dose inhaler Inhale 1 Puff as instructed two times a day. pregabalin (LYRICA) 50 mg capsule Take 1 capsule by mouth two times a day for 180 days. potassium chloride ER (KLOR-CON) 20 mEq tablet Take 20 mEq by mouth. albuterol HFA (PROAIR HFA) 90 mcg/actuation inhaler Inhale 2 Puffs as instructed. nitroglycerin sublingual (NITROQUICK) 0.4 mg SL tablet Dissolve 0.4 mg under the tongue every 5 minutes as needed for chest pain. acetaminophen 325 mg cap Take by mouth. Dexlansoprazole (DEXILANT) 60 mg CpDM TAKE ONE CAPSULE BY MOUTH DAILY AT 9AM fluticasone (FLONASE) 50 mcg/actuation nasal spray INSTILL 2 SPRAYS IN EACH NOSTRIL DAILY RINSE MOUTH AFTER USE (BULK) hyoscyamine sublingual (LEVSIN SL) 0.125 mg Dissolve 1 tablet under the tongue three times daily asneeded. ipratropium (ATROVENT) 0.02 % nebulizer solution Use 2.5 mL via nebulizer four times daily as needed for Wheezing/Shortness of Breath. Use over 5-15minutes. Dx:J45.40 Cholecalciferol, Vitamin D3, 2,000 unit tab Take 2 tablets by mouth once daily. FAMILY HISTORY Problem Relation Age of Onset COPD Mother Breast Cancer Mother Heart Father DC COPD Father other (Pulmonary fibrosis) Father Social History Tobacco Use Smoking status: Former Current packs/day: 0.00 Average packs/day: 0.5 packs/day for 20.0 years (10.0 ttl pk-yrs) Types: Cigarettes Start date: 1973 Quit date: 03/04/1989 Years since quittin.6 Smokeless tobacco: Never Tobacco comments: Both parents smoked in childhood home. Lived with smoker as adult. Vaping Use Vaping status: Never Used Substance Use Topics Alcohol use: No Drug use: No PHYSICAL EXAM BP 138/92 Pulse 88 Resp 16 Wt 58.5 kg (129 lb) SpO2 (!) 86% BMI 27.43 kg/m General Appearance: well appearing, in no acute distress, alert Lungs: Lungs clear to auscultation. No wheezing, rhonchi, rales. Heart: RRR without murmur, gallop, or rubs. No ectopy Health maintenance reviewed with patient: BP Controlled (<130/80) Never done Mammogram Screening due on 08/06/2017 Colorectal Cancer Screening due on 01/08/2022 Covid-19 Vaccine( season) Never done Influenza Vaccine(1) due on 11/03/2023 Alpha-1 Antitrypsin Deficiency Screening due on 05/01/2024 RSV Vaccine(1 - 1-dose 60+ series) due on 05/01/2024 Shingrix Vaccine(1 of 2) due on 05/01/2024 Pneumococcal Vaccine(2 of 2 - PCV) due on 05/01/2024 Hemoglobin/Hematocrit due on 02/12/2024 Serum Creatinine due on 06/09/2024 Annual PCP Team Chronic Disease Visit due on 10/21/2024 Diabetes Screening due on 06/09/2026 Lipid Screening due on 02/12/2028 DTaP,Tdap,Td Vaccine(3 - Td or Tdap) due on 07/22/2028 Spirometry Completed Hepatitis C Screening Completed HIV Screening Completed Cervical Cancer Screening Discontinued DATA REVIEWED: Most recent imaging ASSESSMENT/PLAN: 1. Essential hypertension - ICD9: 401.9, ICD10: I10 (primary diagnosis) - Uncontrolled - possibly due to pain so will increase lyrica and recheck in 2 weeks - Continue current medications - Recommend home blood pressure monitoring, to bring results to next visit - Encouraged sodium restriction, DASH or Mediterranean diet - Recommend regular aerobic exercise 2. Mixed hyperlipidemia - ICD9: 272.2, ICD10: E78.2 - Controlled - Continue current medications - Counseled on healthy diet and regular exercise - Discussed need for and benefit of weight loss. BMI 27.43 kg/(m^2) - ATORVASTATIN 40 MG TABLET 3. Thoracic degenerative disc disease - ICD9: 722.51, ICD10: M51.34 Did not schedule with pain mgmt as requested again during visit. Further imaging ordered Lyrica increased as requested. - CONSULT TO PAIN MGT - CT THORACIC SPINE WO IVCON 4. Pain syndrome, chronic - ICD9: 338.4, ICD10: G89.4 As above - CONSULT TO PAIN MGT - CT THORACIC SPINE WO IVCON 5. Compression deformity of vertebra - ICD9: 738.5, ICD10: M43.9 See #3 - CONSULT TO PAIN MGT - CT THORACIC SPINE WO IVCON 6. Abnormal x-ray - ICD9: 793.99, ICD10: R93.89 See #3 - CT THORACIC SPINE WO IVCON Prescription instructions reviewed with patient as applicable. Potential red flag symptoms discussed with the patient. Reviewed appropriate action plan to take if red flag symptoms occur. Patient agreeable to treatment plan. Dali Rice APRN.CNP documented in this encounterMer[facility] Telephone encounter Note * Telephone Encounter - Homa Martinez RN - 10/30/2023 12:02 PM EDT Patient calling and asking if this been done as soon as possible. Patient asking about lasix prescription and increase in Lyrica. Please review and advise, Homa Martinez RN [facility]08-28-[facility]24 Miscellaneous Notes* Telephone Encounter - Homa Martinez RN - 10/30/2023 12:02 PM EDT Patient calling and asking if this been done as soon as possible. Patient asking about lasix prescription and increase in Lyrica. Please review and advise, Homa Martinez RN * Telephone Encounter - Kellen Alexandra LPN - 10/29/2023 1:44 PM EDT Patient calling asking to have her Lyrica dose increased. She is currently taking Lyrica 50 mg one capsule two times daily. She said needs increased to help with her fibromyalgia pain. Patient is changing her rx refills to [facility] having issues with [facility]. Please advise The patient has been identified by name and date of : Yes Caregiver verified no other encounters exist for this prescription request: Yes Caregiver confirmed with patient/requestor that no other refills are due, in the near future, with this provider at this time: Yes The last office visit in the department: 06/10/2023 Does the patient have a future office visit with this provider/department: Yes 11/06/2023 Requested Prescriptions Pending Prescriptions Disp Refills furosemide (LASIX) 40 mg tablet 90 tablet 3 Kellen Alexandra LPN October 29, 2023 1:47 PM documented in this encounterMer[facility]08-27-2024 Telephone encounter Note * Telephone Encounter - Kellen Alexandra LPN - 10/29/2023 1:44 PM EDT Patient calling asking to have her Lyrica dose increased. She is currently taking Lyrica 50 mg one capsule two times daily. She said needs increased to help with her fibromyalgia pain. Patient is changing her rx refills to [facility] having issues with [facility]. Please advise The patient has been identified by name and date of : Yes Caregiver verified no other encounters exist for this prescription request: Yes Caregiver confirmed with patient/requestor that no other refills are due, in the near future, with this provider at this time: Yes The last office visit in the department: 06/10/2023 Does the patient have a future office visit with this provider/department: Yes 11/06/2023 Requested Prescriptions Pending Prescriptions Disp Refills furosemide (LASIX) 40 mg tablet 90 tablet 3 Kellen Alexandra LPN October 29, 2023 1:47 PM [facility] Telephone encounter Note* Telephone Encounter - Janes Webb MA - 10/29/2023 8:48 AM EDT Prescription Refill Information The patient has been identified by name and date of : Yes Caregiver verified no other encounters exist for this prescription request: Yes Caregiver confirmed with patient/requestor that no other refills are due, in the near future, with this provider at this time: Yes The last office visit in the department: 06/10/2023 Does the patient have a future office visit with this provider/department: Yes Requested Prescriptions Pending Prescriptions Disp Refills ondansetron orally disintegrating (ZOFRAN ODT) 4 mg disintegrating tablet 30 tablet 1 Sig: Take 1 tablet by mouth every 8 hours as needed. Janes Webb MA October 29, 2023 8:48 AM [facility]08-27-[facility] Miscellaneous Notes* Telephone Encounter - Janes Webb MA - 10/29/2023 8:48 AM EDT Prescription Refill Information The patient has been identified by name and date of : Yes Caregiver verified no other encounters exist for this prescription request: Yes Caregiver confirmed with patient/requestor that no other refills are due, in the near future, with this provider at this time: Yes The last office visit in the department: 06/10/2023 Does the patient have a future office visit with this provider/department: Yes Requested Prescriptions Pending Prescriptions Disp Refills ondansetron orally disintegrating (ZOFRAN ODT) 4 mg disintegrating tablet 30 tablet 1 Sig: Take 1 tablet by mouth every 8 hours as needed. Janes Webb MA October 29, 2023 8:48 AM documented in this encounterMer[facility]08-26-2024 Telephone encounter Note * Telephone Encounter - Michelle Beckham MA - 10/28/2023 3:56 PM EDT Patient notified. [facility] Miscellaneous Notes* Telephone Encounter - Michelle Beckham MA - 10/28/2023 3:56 PM EDT Patient notified. * Telephone Encounter - Dali Rice APRN.CNP - 10/28/2023 3:50 PM EDT Increased dose of buspar sent. See other TE as well. Thank you Dali Rice APRN.CNP * Telephone Encounter - Kellen Alexandra LPN - 10/28/2023 1:08 PM EDT Patient calling she had appt with Jeffry VEGA on 10/22/2023, she had told her to increase her Busparto 10 mg three times daily. Patient said a new rx was not sent to the pharmacy. Now she is out of the medication and can not get it refilled. Office notes do not say to increase her dose. Patient asking for rx to help with her back feels like it is in knots, her anxiety is worse. Patient uses [facility] for [facility]. Please advise documented in this encounterMer[facility]08-26-2024 Telephone encounter Note * Telephone Encounter - Michelle Beckham MA - 10/28/2023 3:55 PM EDT Patient notified, seeing rheumatology tomorrow. [facility] Miscellaneous Notes* Telephone Encounter - Michelle Beckham MA - 10/28/2023 3:55 PM EDT Patient notified, seeing rheumatology tomorrow. * Telephone Encounter - Dali Rice APRN.CNP - 10/28/2023 3:43 PM EDT Severe degenerative changes with possible compression deformities due to her osteoporosis. Is she getting treatment for her osteoporosis as was ordered by rheumatology earlier this year? Also has sheever seen pain management as ordered by rheumatology as well. I have ordered some muscle relaxers to help with the spasming. If pain is worsening she will need see again. For severe pain, loss of bowl/bladder control, weakness, numbness, or any urgent concern she needs to go to ER. Thank you Dali Rice APRN.MARIETTA * Telephone Encounter - Homa Martinez RN - 10/28/2023 9:53 AM EDT Patient calls and states that back pain has not improved. Patient states that she is having really bad muscle spasms. Patient is in tears. Patient also states that Buspar was changed to 10 mg at lastappointment. Patient asking if refill can be sent to pharmacy? Patient states that she really needsto know what her x ray results are. Please review and advise, Homa Martinez RN * Telephone Encounter - Scot Wang LPN - 10/26/2023 9:44 AM EDT Pt calling for results of xray's completed on 10/22/23. Please advise. Scot Wang LPN documented in this encounterMercy [facility]08-26-2024 Telephone encounter Note * Telephone Encounter - Dali Rice APRN.CNP - 10/28/2023 3:50 PM EDT Increased dose of buspar sent. See other TE as well. Thank you Dali Rice APRN.CNP [facility] Telephone encounter Note* Telephone Encounter - Dali Rice APRN.CNP - 10/28/2023 3:43 PM EDT Severe degenerative changes with possible compression deformities due to her osteoporosis. Is she getting treatment for her osteoporosis as was ordered by rheumatology earlier this year? Also has sheever seen pain management as ordered by rheumatology as well. I have ordered some muscle relaxers to help with the spasming. If pain is worsening she will need see again. For severe pain, loss of bowl/bladder control, weakness, numbness, or any urgent concern she needs to go to ER. Thank you Dali Rice APRN.CNP [facility] Telephone encounter Note* Telephone Encounter - Kellen Alexandra LPN - 10/28/2023 1:08 PM EDT Patient calling she had appt with Jeffry VEGA on 10/22/2023, she had told her to increase her Busparto 10 mg three times daily. Patient said a new rx was not sent to the pharmacy. Now she is out of the medication and can not get it refilled. Office notes do not say to increase her dose. Patient asking for rx to help with her back feels like it is in knots, her anxiety is worse. [facility]. Please advise [facility]08-26-2024 Telephone encounter Note* Telephone Encounter - Homa Martinez RN - 10/28/2023 9:53 AM EDT Patient calls and states that back pain has not improved. Patient states that she is having really bad muscle spasms. Patient is in tears. Patient also states that Buspar was changed to 10 mg at lastappointment. Patient asking if refill can be sent to pharmacy? Patient states that she really needsto know what her x ray results are. Please review and advise, Homa Martinez RN [facility]08-24-2024 Telephone encounter Note* Telephone Encounter - Scot Wang LPN - 10/26/2023 9:44 AM EDT Pt calling for results of xray's completed on 10/22/23. Please advise. Scot Wang LPN [facility]08-21-2024 Telephone encounter Note* Telephone Encounter - Ca Valenzuela RN - 10/23/2023 2:52 PM EDT Barby with [facility] calls to request prescription refills. Noted [facility] is preferred pharmacy. Notified Barby patient would need to authorize requests and prescriptions had recently been sent [facility]. Will wait to hear from patient if has needs. Ca Valenzuela RN [facility]08-21-2024 Miscellaneous Notes* Telephone Encounter - aC Valenzuela RN - 10/23/2023 2:52 PM EDT Barby with [facility] calls to request prescription refills. Noted [facility] is preferred pharmacy. Notified Barby patient would need to authorize requests and prescriptions had recently been sent [facility]. Will wait to hear from patient if has needs. Ca Valenzuela RN documented in [facility] encounter[facility] History of Present illness Narrative* Carrie Arevalo RT(R) - 10/22/2023 1:10 PM EDT Radiology Service Progress Note PATIENT NAME: Leyda Lopez DATE OF SERVICE: October 22, 2023 TIME: 1:11 PM PATIENT IDENTITY VERIFICATION COMPLETED USING TWO (2) IDENTIFIERS: Name and Date of confirmedby patient verbally. FALL SCREENING: Has the patient had 2 falls in the last year or 1 fall with injury or currently using an Ambulatory Assistive Device (Walker, Cane, Wheelchair, Crutches, etc.)? No PATIENT GENDER DATA: Female. status: : No status: NO. PATIENT RELEVANT IMPLANT DATA REVIEWED: Yes PATIENT PRESENTS WITH AN IMPLANTABLE OR ATTACHED RETAIL CASHIER: No RADIOLOGY DEPARTMENT: General X-ray: Exam(s) Completed: Spine X-Ray(s): Thoracic PERIPHERAL IV DATA: Not applicable SIGNED BY: RT Sravani(Velia) October 22, 2023 1:11 PM documented in this encounterMer[facility]-2024 NoteHNO ID: [id number] Author: CARRIE AREVALO RT(R) Service: Radiology Author Type: Technologist Type: Progress Notes Filed: 10/22/2023 13:26 Note Text: Radiology Service Progress Note PATIENT NAME: Leyda Lopez DATE OF SERVICE: October 22, 2023 TIME: 1:11 PM PATIENT IDENTITY VERIFICATION COMPLETED USING TWO (2) IDENTIFIERS: Name and Date of confirmed by patient verbally. FALL SCREENING: Has the patient had 2 falls in the last year or 1 fall with injury or currently using an Ambulatory Assistive Device (Walker, Cane, Wheelchair, Crutches, etc.)? No PATIENT GENDER DATA: Female. status: : No status: NO. PATIENT RELEVANT IMPLANT DATA REVIEWED: Yes PATIENT PRESENTS WITH AN IMPLANTABLE OR ATTACHED RETAIL CASHIER: No RADIOLOGY DEPARTMENT: General X-ray: Exam(s) Completed: Spine X-Ray(s): Thoracic PERIPHERAL IV DATA: Not applicable SIGNED BY: RT Sravani(R) October 22, 2023 1:11 [facility]08-20-2024 Instructions* Patient Instructions* Ines Lopez PA-C - 10/22/2023 12:52 PM EDT Slowly taper (stop) the amitriptyline. Take 1/2 tab (50 mg once daily) at bedtime x 2 weeks Then take 1/4 tabs (25 mg once daily) at bedtime x 2 weeks, then stop. Can start trazodone in 2 weeks when taking 25 mg once daily. documented in this encounterMer[facility] History of Present illness Narrative* Ines Lopez PA-C - 10/22/2023 12:24 PM EDT 10/22/2023 Patient presents with: Follow Up: med review, pain in spine 12/11 SUBJECTIVE: This is a 62 year old that is here today for Complaint(s) of spine. Thoracic back pain.Rates 12/11. Has had chronic pain. Has previously followed with Dr. Blankenship. Denies redness, warmth,fever/chills, injury/trauma. HTN Taking BP medications regularly. Just took her dose today 1 hour ago. Ears are plugged. Muffled healing. Feels like they are plugged with wax, unable to get it out. Denies pain. Also c/o lump on her back that is painful. Thought it was a little red yesterday. Also has chronic back pain that is worse with prolonged standing. Does not follow with pain management. Hydroxyzine not helping with anxiety. Taking every 4 hours. Also on lexapro 20 mg and elavil once daily at bedtime. Also on buspar 5 mg TID. Thinks that the lump on her back might be worsening her nerves per patient. Denies SI/HI. Things trazodone helped more previously. PAST MEDICAL HISTORY No date: Abdominal pain, right upper quadrant No date: ADD (attention deficit disorder) Comment: Seeing psychiatry No date: Anemia, unspecified No date: Asthma No date: Back pain Comment: chronic-Seeing Dr. Blankenship No date: Bipolar affective disorder ([facility]) No date: Chronic right shoulder pain Comment: Seeing Dr. Molina 01/18/2011: Closed dislocation of tarsometatarsal (joint) No date: COPD (chronic obstructive pulmonary disease) ([facility]) 03/22/2005: Depressive disorder, not elsewhere classified 02/09/2008: Disorder of bone and cartilage, unspecified 01/05/2011: Distal radius fracture No date: Dysuria No date: Fibromyalgia No date: GERD (gastroesophageal reflux disease) No date: IBS (irritable bowel syndrome) No date: Mitral regurgitation Comment: Severe No date: Neck pain Comment: chronic-takes vicodin for this No date: NSTEMI (non-ST elevated myocardial infarction) ([facility]) Comment: Seeing Dr. Hutton No date: Other and unspecified hyperlipidemia 03/22/2005: Panic disorder without agoraphobia No date: PMR (polymyalgia rheumatica) ([facility]) No date: RA (rheumatoid arthritis) ([facility]) 03/22/2005: Unspecified essential hypertension ALLERGIES Amlodipine, Ativan [Lorazepam], Baclofen, Methotrexate, Nadolol, Nexium [Esomeprazole Magnesium], Penicillin G, and Propranolol MEDICATIONS Current Outpatient Medications Medication Sig meloxicam (MOBIC) 7.5 mg tablet Take 1 tablet by mouth two times a day. busPIRone (BUSPAR) 5 mg tablet Take 1 tablet by mouth three times a day. loperamide (IMODIUM) 2 mg cap(s) Take 1 capsule by mouth three times a day as needed. hydrOXYzine HCl (ATARAX) 50 mg tablet Take 1 tablet by mouth every 8 hours as needed for anxiety. SUMAtriptan (IMITREX) 50 mg tablet Take 1 tablet (50 mg) by mouth as needed for migraine headache (see administration instructions). START AT ONSET OF HEADACHE. MAY REPEAT DOSE AFTER 2 HOURS. escitalopram oxalate (LEXAPRO) 20 mg tablet Take 1 tablet by mouth once daily. amitriptyline (ELAVIL) 100 mg tablet Take 1 tablet by mouth daily at bedtime. lisinopril (ZESTRIL) 40 mg tablet Take 1 tablet by mouth once daily. atorvastatin (LIPITOR) 40 mg tablet TAKE ONE TABLET BY MOUTH DAILY AT 9PM AT BEDTIME fluticasone-salmeterol (ADVAIR, WIXELA) 250-50 mcg/dose inhaler Inhale 1 Puff as instructed two times a day. pregabalin (LYRICA) 50 mg capsule Take 1 capsule by mouth two times a day for 180 days. potassium chloride ER (KLOR-CON) 20 mEq tablet Take 20 mEq by mouth. albuterol HFA (PROAIR HFA) 90 mcg/actuation inhaler Inhale 2 Puffs as instructed. nitroglycerin sublingual (NITROQUICK) 0.4 mg SL tablet Dissolve 0.4 mg under the tongue every 5 minutes as needed for chest pain. acetaminophen 325 mg cap Take by mouth. Dexlansoprazole (DEXILANT) 60 mg CpDM TAKE ONE CAPSULE BY MOUTH DAILY AT 9AM ondansetron orally disintegrating (ZOFRAN ODT) 4 mg disintegrating tablet Take 1 tablet by mouth every 8 hours as needed. fluticasone (FLONASE) 50 mcg/actuation nasal spray INSTILL 2 SPRAYS IN EACH NOSTRIL DAILY RINSE MOUTH AFTER USE (BULK) furosemide (LASIX) 40 mg tablet TAKE ONE TABLET BY MOUTH DAILY AT 9AM (Patient taking differently: Take 40 mg by mouth two times a day.) tiZANidine (ZANAFLEX) 4 mg tablet TAKE ONE TABLET BY MOUTH AT BEDTIME NEEDED FOR MUSCLE SPASMS (VIAL) hyoscyamine sublingual (LEVSIN SL) 0.125 mg Dissolve 1 tablet under the tongue three times daily asneeded. ipratropium (ATROVENT) 0.02 % nebulizer solution Use 2.5 mL via nebulizer four times daily as needed for Wheezing/Shortness of Breath. Use over 5-15minutes. Dx:J45.40 Cholecalciferol, Vitamin D3, 2,000 unit tab Take 2 tablets by mouth once daily. No current facility-administered medications for this visit. SOCIAL HISTORY Social History Tobacco Use Smoking status: Former Current packs/day: 0.00 Average packs/day: 0.5 packs/day for 20.0 years (10.0 ttl pk-yrs) Types: Cigarettes Start date: 1973 Quit date: 03/04/1989 Years since quittin.6 Smokeless tobacco: Never Tobacco comments: Both parents smoked in childhood home. Lived with smoker as adult. Vaping Use Vaping status: Never Used Substance Use Topics Alcohol use: No Drug use: No REVIEW OF SYSTEMS See HPI OBJECTIVE: BP 164/90 (BP Site: Left Arm, BP Position: Sitting, BP Cuff Size: Regular Adult) Pulse 95 Resp 16 Ht 146.1 cm (4' 9.5) Wt 58.1 kg (128 lb) SpO2 98% BMI 27.22 kg/m APPEARANCE Well appearing, alert, in no acute distress, well-hydrated, well nourished. EYES PERRLA, conjunctiva and sclera normal. NECK Supple, no adenopathy; thyroid symmetric, normal size, no bruits HEART RRR with normal S1 and S2, no murmurs, no gallops, no JVD appreciated LUNG clear to auscultation BACK: + TTP along the thoracic spine, no erythema, warmth, induration, edema, rash. Limited ROM. EXTREMITIES Extremities normal, No deformities, No skin discoloration, No edema, and Normal pulses bilaterally. NEURO Awake, alert and oriented x 3, Reflexes symmetrical, Normal gait, and No involuntary motions. ASSESSMENT/PLAN: 1. Acute midline thoracic back pain - ICD9: 724.1, ICD10: M54.6 (primary diagnosis) - Ice for localized tenderness - Warm moist heat for 20 min three times a day - NSAIDS- see orders - XR THORACIC GENERAL 3V AP/LAT/SWIMMERS Recommend consult to pain management. Scheduled to see rheumatology Consider additional imaging pending XR results. Reviewed red flags and when to seek care sooner in ED 2. Essential hypertension - ICD9: 401.9, ICD10: I10 - Uncontrolled - Recommend home blood pressure monitoring, to bring results to next visit - Encouraged sodium restriction, DASH or Mediterranean diet - Recommend regular aerobic exercise She did not take her medications that morning, advise f/u in 2-4 weeks for recheck. Recheck at homeand call if running >140/90. 3. Eustachian tube dysfunction, bilateral - ICD9: 381.81, ICD10: H69.93 TMS normal Trial of flonase Consider ENT referral if persisting. 4. Panic disorder without agoraphobia - ICD9: 300.01, ICD10: F41.0 Taper off Elavil and increase Buspar to 10 mg TID prn. Start Trazodone. The patient indicates understanding of these issues and agrees with the plan. Reviewed red flags and when to seek care sooner. Ines Lopez PA-C documented in [facility]Mer[facility] NoteHNO ID: [id number] Author: INES LOPEZ PA-C Service: ? Author Type: Physician County Adviser Type: Progress Notes Filed: 11/05/2023 10:31 Note Text: 10/22/2023 Patient presents with: Follow Up: med review, pain in spine 12/11 SUBJECTIVE: This is a 62 year old that is here today for Complaint(s) of spine. Thoracic back pain. Rates 12/11. Has had chronic pain. Has previously followed with Dr. Blankenship. Denies redness, warmth, fever/chills, injury/trauma. HTN Taking BP medications regularly. Just took her dose today 1 hour ago. Ears are plugged. Muffled healing. Feels like they are plugged with wax, unable to get it out. Denies pain. Also c/o lump on her back that is painful. Thought it was a little red yesterday. Also has chronic back pain that is worse with prolonged standing. Does not follow with pain management. Hydroxyzine not helping with anxiety. Taking every 4 hours. Also on lexapro 20 mg and elavil once daily at bedtime. Also on buspar 5 mg TID. Thinks that the lump on her back might be worsening her nerves per patient. Denies SI/HI. Things trazodone helped more previously. PAST MEDICAL HISTORY No date: Abdominal pain, right upper quadrant No date: ADD (attention deficit disorder) Comment: Seeing psychiatry No date: Anemia, unspecified No date: Asthma No date: Back pain Comment: chronic-Seeing Dr. Blankenship No date: Bipolar affective disorder ([facility]) No date: Chronic right shoulder pain Comment: Seeing Dr. Molina 01/18/2011: Closed dislocation of tarsometatarsal (joint) No date: COPD (chronic obstructive pulmonary disease) ([facility]) 03/22/2005: Depressive disorder, not elsewhere classified 02/09/2008: Disorder of bone and cartilage, unspecified 01/05/2011: Distal radius fracture No date: Dysuria No date: Fibromyalgia No date: GERD (gastroesophageal reflux disease) No date: IBS (irritable bowel syndrome) No date: Mitral regurgitation Comment: Severe No date: Neck pain Comment: chronic-takes vicodin for this No date: NSTEMI (non-ST elevated myocardial infarction) ([facility]) Comment: Seeing Dr. Hutton No date: Other and unspecified hyperlipidemia 03/22/2005: Panic disorder without agoraphobia No date: PMR (polymyalgia rheumatica) ([facility]) No date: RA (rheumatoid arthritis) ([facility]) 03/22/2005: Unspecified essential hypertension ALLERGIES Amlodipine, Ativan [Lorazepam], Baclofen, Methotrexate, Nadolol, Nexium [Esomeprazole Magnesium], Penicillin G, and Propranolol MEDICATIONS Current Outpatient Medications Medication Sig meloxicam (MOBIC) 7.5 mg tablet Take 1 tablet by mouth two times a day. busPIRone (BUSPAR) 5 mg tablet Take 1 tablet by mouth three times a day. loperamide (IMODIUM) 2 mg cap(s) Take 1 capsule by mouth three times a day as needed. hydrOXYzine HCl (ATARAX) 50 mg tablet Take 1 tablet by mouth every 8 hours as needed for anxiety. SUMAtriptan (IMITREX) 50 mg tablet Take 1 tablet (50 mg) by mouth as needed for migraine headache (see administration instructions). START AT ONSET OF HEADACHE. MAY REPEAT DOSE AFTER 2 HOURS. escitalopram oxalate (LEXAPRO) 20 mg tablet Take 1 tablet by mouth once daily. amitriptyline (ELAVIL) 100 mg tablet Take 1 tablet by mouth daily at bedtime. lisinopril (ZESTRIL) 40 mg tablet Take 1 tablet by mouth once daily. atorvastatin (LIPITOR) 40 mg tablet TAKE ONE TABLET BY MOUTH DAILY AT 9PM AT BEDTIME fluticasone-salmeterol (ADVAIR, WIXELA) 250-50 mcg/dose inhaler Inhale 1 Puff as instructed two times a day. pregabalin (LYRICA) 50 mg capsule Take 1 capsule by mouth two times a day for 180 days. potassium chloride ER (KLOR-CON) 20 mEq tablet Take 20 mEq by mouth. albuterol HFA (PROAIR HFA) 90 mcg/actuation inhaler Inhale 2 Puffs as instructed. nitroglycerin sublingual (NITROQUICK) 0.4 mg SL tablet Dissolve 0.4 mg under the tongue every 5 minutes as needed for chest pain. acetaminophen 325 mg cap Take by mouth. Dexlansoprazole (DEXILANT) 60 mg CpDM TAKE ONE CAPSULE BY MOUTH DAILY AT 9AM ondansetron orally disintegrating (ZOFRAN ODT) 4 mg disintegrating tablet Take 1 tablet by mouth every 8 hours as needed. fluticasone (FLONASE) 50 mcg/actuation nasal spray INSTILL 2 SPRAYS IN EACH NOSTRIL DAILY RINSE MOUTH AFTER USE (BULK) furosemide (LASIX) 40 mg tablet TAKE ONE TABLET BY MOUTH DAILY AT 9AM (Patient taking differently: Take 40 mg by mouth two times a day.) tiZANidine (ZANAFLEX) 4 mg tablet TAKE ONE TABLET BY MOUTH AT BEDTIME NEEDED FOR MUSCLE SPASMS (VIAL) hyoscyamine sublingual (LEVSIN SL) 0.125 mg Dissolve 1 tablet under the tongue three times daily as needed. ipratropium (ATROVENT) 0.02 % nebulizer solution Use 2.5 mL via nebulizer four times daily as needed for Wheezing/Shortness of Breath. Use over 5-15minutes. Dx:J45.40 Cholecalciferol, Vitamin D3, 2,000 unit tab Take 2 tablets by mouth once daily. No current facility-administered medications for this visit. SOCIAL HISTORY [employer] (more content not included)...[facility]08-20-2024 Telephone encounter Note* Telephone Encounter - Donna Pickering MA - 10/22/2023 12:11 PM EDT Patient called in and cancelled surgery. She is not rescheduling at this time. Case message sent and post op appointments have been cancelled. [facility]08-20-2024 Miscellaneous Notes* Telephone Encounter - Donna Pickering MA - 10/22/2023 12:11 PM EDT Patient called in and cancelled surgery. She is not rescheduling at this time. Case message sent and post op appointments have been cancelled. documented in this encounterMer[facility]08-[facility] Telephone encounter Note * Telephone Encounter - Ca Valenzuela RN - 10/21/2023 4:44 PM EDT Patient returns call. Wants to discuss medication renewals. Sumatriptan, Imodium, and Hydroxyzine. Scheduled OV per previous Refill request. Scheduled 40 min OV. Ca Valenzuela RN [facility]08-19-2024 Miscellaneous Notes* Telephone Encounter - Ca Valenzuela RN - 10/21/2023 4:44 PM EDT Patient returns call. Wants to discuss medication renewals. Sumatriptan, Imodium, and Hydroxyzine. Scheduled OV per previous Refill request. Scheduled 40 min OV. Ca Valenzuela RN * Telephone Encounter - Cesia Steele LPN - 10/21/2023 1:58 PM EDT Patient MyChart message requesting the following refill Refill(s) Requested: Requested Prescriptions Pending Prescriptions Disp Refills SUMAtriptan (IMITREX) 50 mg tablet 4 tablet 0 Sig: Take 1 tablet (50 mg) by mouth as needed for migraine headache (see administration instructions). START AT ONSET OF HEADACHE. MAY REPEAT DOSE AFTER 2 HOURS. ALLERGIES Allergen Reactions Amlodipine Other: See Comments shaky and aashishttnaresh Ativan [Lorazepam] Mental Status Change, Vomiting mood swings Baclofen Mental Status Change angry,mood effect Methotrexate Vomiting abdomen pain,vomiting, sbo Nadolol Intolerance body burning,tingly Nexium [Esomeprazol* Other: See Comments reflux-no relief Penicillin G GI Upset patient reports these symptoms after medication was ordered Propranolol Intolerance fatigue,sleepy (home) [phone] (cell) Last Office Visit Date: 06/10/2023 Last [facility] Visit: Visit date not found Future Appointment: 12/11/2023 The patients preferred pharmacy has been captured for this encounter? yes Request is for script(s) to be escript to pharmacy. Cesia Steele LPN documented in this encounterMer[facility] Telephone encounter Note * Telephone Encounter - Cesia Steele LPN - 10/21/2023 1:58 PM EDT Patient [employer] message requesting the following refill Refill(s) Requested: Requested Prescriptions Pending Prescriptions Disp Refills SUMAtriptan (IMITREX) 50 mg tablet 4 tablet 0 Sig: Take 1 tablet (50 mg) by mouth as needed for migraine headache (see administration instructions). START AT ONSET OF HEADACHE. MAY REPEAT DOSE AFTER 2 HOURS. ALLERGIES Allergen Reactions Amlodipine Other: See Comments kale Ativan [Lorazepam] Mental Status Change, Vomiting mood swings Baclofen Mental Status Change angry,mood effect Methotrexate Vomiting abdomen pain,vomiting, sbo Nadolol Intolerance body burning,tingly Nexium [Esomeprazol* Other: See Comments reflux-no relief Penicillin G GI Upset patient reports these symptoms after medication was ordered Propranolol Intolerance fatigue,sleepy (home) [phone] (cell) Last Office Visit Date: 06/10/2023 Last [facility] Visit: Visit date not found Future Appointment: 12/11/2023 The patients preferred pharmacy has been captured for this encounter? yes Request is for script(s) to be escript to pharmacy. Cesia Steele LPN [facility]08-19-2024 Telephone encounter Note* Telephone Encounter - Dali Rice APRN.CNP - 10/21/2023 12:54 PM EDT This was just filled 2 weeks ago. If she is needing it this often, she needs seen. Dali Rice APRN.CNP [facility]08-19-2024 Miscellaneous Notes* Telephone Encounter - Dali Rice APRN.CNP - 10/21/2023 12:54 PM EDT This was just filled 2 weeks ago. If she is needing it this often, she needs seen. Dali Rice APRN.CNP * Telephone Encounter - Cesia Steele LPN - 10/21/2023 10:39 AM EDT Patient [employer] message requesting the following refill Refill(s) Requested: Requested Prescriptions Pending Prescriptions Disp Refills loperamide (IMODIUM) 2 mg cap(s) 30 capsule 0 Sig: Take 1 capsule by mouth three times a day as needed. ALLERGIES Allergen Reactions Amlodipine Other: See Comments shaky and jittery Ativan [Lorazepam] Mental Status Change, Vomiting mood swings Baclofen Mental Status Change angry,mood effect Methotrexate Vomiting abdomen pain,vomiting, sbo Nadolol Intolerance body burning,tingly Nexium [Esomeprazol* Other: See Comments reflux-no relief Penicillin G GI Upset patient reports these symptoms after medication was ordered Propranolol Intolerance fatigue,sleepy (home) [phone] (cell) Last Office Visit Date: 06/10/2023 Last [facility] Visit: Visit date not found Future Appointment: 10/18/2023 The patients preferred pharmacy has been captured for this encounter? yes Request is for script(s) to be escript to pharmacy. Cesia Steele LPN documented in this encounterMer[facility]08-[facility]24 Telephone encounter Note * Telephone Encounter - Cesia Steele LPN - 10/21/2023 10:39 AM EDT Patient [facility] message requesting the following refill Refill(s) Requested: Requested Prescriptions Pending Prescriptions Disp Refills loperamide (IMODIUM) 2 mg cap(s) 30 capsule 0 Sig: Take 1 capsule by mouth three times a day as needed. ALLERGIES Allergen Reactions Amlodipine Other: See Comments shaky and jittery Ativan [Lorazepam] Mental Status Change, Vomiting mood swings Baclofen Mental Status Change angry,mood effect Methotrexate Vomiting abdomen pain,vomiting, sbo Nadolol Intolerance body burning,tingly Nexium [Esomeprazol* Other: See Comments reflux-no relief Penicillin G GI Upset patient reports these symptoms after medication was ordered Propranolol Intolerance fatigue,sleepy (home) [phone] (cell) Last Office Visit Date: 06/10/2023 Last [facility] Visit: Visit date not found Future Appointment: 10/18/2023 The patients preferred pharmacy has been captured for this encounter? yes Request is for script(s) to be escript to pharmacy. Cesia Steele LPN [facility]08-15-2024 Telephone encounter Note* Telephone Encounter - Nakita Santiago MA - 10/17/2023 4:29 PM EDT Patient returned call. Patient canceled her surgery and will call to reschedule. [facility]08-15-2024 Miscellaneous Notes* Telephone Encounter - Nakita Santiago MA - 10/17/2023 4:29 PM EDT Patient returned call. Patient canceled her surgery and will call to reschedule. * Telephone Encounter - Donna Pickering MA - 10/16/2023 3:48 PM EDT I called and left a detailed message on the patients voicemail that she needs to contact [phone] to get her pre admission testing set up. Advised patient surgery would be cancelled if she did not have pre admission testing completed. Also attempted to reach significant other, Trey, voicemail was full and I could not leave a message. * Telephone Encounter - Nakita Santiago MA - 10/15/2023 1:53 PM EDT Left message for patient to call office. * Telephone Encounter - Nakita Santiago MA - 10/15/2023 1:48 PM EDT Nasrin from [facility] called and states patient was no show for PAT and they have left her 5 messages and has not returned any of their calls. Patient is scheduled for surgery next Sunday 10/22. * Telephone Encounter - Michelle Caban LPN - 10/07/2023 3:52 PM EDT Patient was scheduled for in person [facility] appt at 3:40pm today. Patient did not check in for appt, called patient at 3:51pm to see if they were planning on coming. Left voicemail with appt informationand [facility] phone number. Michelle Caban LPN . [facility] encounter[facility] Telephone encounter Note * Telephone Encounter - Nakita Santiago MA - 10/17/2023 4:24 PM EDT Prescription Refill Information The patient has been identified by name and date of : Yes Caregiver verified no other encounters exist for this prescription request: Yes Caregiver confirmed with patient/requestor that no other refills are due, in the near future, with this provider at this time: No The last office visit in the department: 06/10/23 Does the patient have a future office visit with this provider/department: Yes Requested Prescriptions Pending Prescriptions Disp Refills meloxicam (MOBIC) 7.5 mg tablet Sig: Take 1 tablet by mouth once daily. Nakita Santiago MA October 17, 2023 4:26 PM [facility]08-[facility] Miscellaneous Notes* Telephone Encounter - Nakita Santiago MA - 10/17/2023 4:24 PM EDT Prescription Refill Information The patient has been identified by name and date of : Yes Caregiver verified no other encounters exist for this prescription request: Yes Caregiver confirmed with patient/requestor that no other refills are due, in the near future, with this provider at this time: No The last office visit in the department: 06/10/23 Does the patient have a future office visit with this provider/department: Yes Requested Prescriptions Pending Prescriptions Disp Refills meloxicam (MOBIC) 7.5 mg tablet Sig: Take 1 tablet by mouth once daily. Nakita Santiago MA October 17, 2023 4:26 PM documented in this encounterMer[facility]24 Telephone encounter Note * Telephone Encounter - Donna Pickering MA - 10/16/2023 3:48 PM EDT I called and left a detailed message on the patients voicemail that she needs to contact [phone] to get her pre admission testing set up. Advised patient surgery would be cancelled if she did not have pre admission testing completed. Also attempted to reach significant other, Trey, voicemail was full and I could not leave a message. [facility] Telephone encounter Note* Telephone Encounter - Nakita Santiago MA - 10/15/2023 1:53 PM EDT Left message for patient to call office. [facility]08-[facility] Telephone encounter Note* Telephone Encounter - Nakita Santiago MA - 10/15/2023 1:48 PM EDT Nasrin from [facility] called and states patient was no show for PAT and they have left her 5 messages and has not returned any of their calls. Patient is scheduled for surgery next Sunday 10/22. [facility] Telephone encounter Note* Telephone Encounter - Janes Webb MA - 10/08/2023 9:02 AM EDT Mychart sent. [facility] Miscellaneous Notes* Telephone Encounter - Janes Webb MA - 10/08/2023 9:02 AM EDT Mychart sent. * Telephone Encounter - Lilliana Pruitt LPN - 10/07/2023 4:21 PM EDT Attempted to reach pt by phone without success. Mailbox is full. Lilliana Pruitt LPN * Telephone Encounter - Kayla Montez LPN - 10/07/2023 1:09 PM EDT Our records indicate that there is a current script at [facility] of lisinopril. Prescription Refill Information The patient has been identified by name and date of : Yes Caregiver verified no other encounters exist for this prescription request: Yes Caregiver confirmed with patient/requestor that no other refills are due, in the near future, with this provider at this time: Yes The last office visit in the department: 06/10/23 Does the patient have a future office visit with this provider/department: Yes 12/11/23 Requested Prescriptions Pending Prescriptions Disp Refills predniSONE (DELTASONE) 10 mg tablet 21 tablet 0 Sig: Take two tablets for one week then one table for one week then discontinue Refused Prescriptions Disp Refills lisinopril (ZESTRIL) 40 mg tablet 30 tablet 5 Sig: Take 1 tablet by mouth once daily. Kayla Montez LPN October 07, 2023 1:18 PM documented in this encounterMer[facility]08-05-2024 Telephone encounter Note * Telephone Encounter - Lilliana Pruitt LPN - 10/07/2023 4:21 PM EDT Attempted to reach pt by phone without success. Mailbox is full. Lilliana Pruitt LPN [facility] Telephone encounter Note* Telephone Encounter - Michelle Caban LPN - 10/07/2023 3:52 PM EDT Patient was scheduled for in person [facility] appt at 3:40pm today. Patient did not check in for appt, called patient at 3:51pm to see if they were planning on coming. Left voicemail with appt informationand [facility] phone number. Michelle Caban LPN . [facility] Telephone encounter Note* Telephone Encounter - Kayla Montez LPN - 10/07/2023 1:21 PM EDT Prescription Refill Information The patient has been identified by name and date of : Yes Caregiver verified no other encounters exist for this prescription request: Yes Caregiver confirmed with patient/requestor that no other refills are due, in the near future, with this provider at this time: Yes The last office visit in the department: 06/10/23 Does the patient have a future office visit with this provider/department: Yes 12/11/23 Requested Prescriptions Pending Prescriptions Disp Refills loperamide (IMODIUM) 2 mg cap(s) 30 capsule 0 Sig: Take 1 capsule by mouth three times a day as needed. Kyala Montez LPN October 07, 2023 1:21 PM [facility] Miscellaneous Notes* Telephone Encounter - Kayla Montez LPN - 10/07/2023 1:21 PM EDT Prescription Refill Information The patient has been identified by name and date of : Yes Caregiver verified no other encounters exist for this prescription request: Yes Caregiver confirmed with patient/requestor that no other refills are due, in the near future, with this provider at this time: Yes The last office visit in the department: 06/10/23 Does the patient have a future office visit with this provider/department: Yes 12/11/23 Requested Prescriptions Pending Prescriptions Disp Refills loperamide (IMODIUM) 2 mg cap(s) 30 capsule 0 Sig: Take 1 capsule by mouth three times a day as needed. Kayla Montez LPN October 07, 2023 1:21 PM documented in this encounterMer[facility]08-[facility]-2024 Telephone encounter Note * Telephone Encounter - Kayla Montez LPN - 10/07/2023 1:19 PM EDT Prescription Refill Information The patient has been identified by name and date of : Yes Caregiver verified no other encounters exist for this prescription request: Yes Caregiver confirmed with patient/requestor that no other refills are due, in the near future, with this provider at this time: Yes The last office visit in the department: 06/10/23 Does the patient have a future office visit with this provider/department: Yes 12/11/23 Requested Prescriptions Pending Prescriptions Disp Refills busPIRone (BUSPAR) 5 mg tablet 90 tablet 1 Sig: Take 1 tablet by mouth three times a day. Kayla Montez LPN October 07, 2023 1:20 PM [facility]08-05-[facility] Miscellaneous Notes* Telephone Encounter - Kayla Montez LPN - 10/07/2023 1:19 PM EDT Prescription Refill Information The patient has been identified by name and date of : Yes Caregiver verified no other encounters exist for this prescription request: Yes Caregiver confirmed with patient/requestor that no other refills are due, in the near future, with this provider at this time: Yes The last office visit in the department: 06/10/23 Does the patient have a future office visit with this provider/department: Yes 12/11/23 Requested Prescriptions Pending Prescriptions Disp Refills busPIRone (BUSPAR) 5 mg tablet 90 tablet 1 Sig: Take 1 tablet by mouth three times a day. Kayla Montez LPN October 07, 2023 1:20 PM documented in this encounterMer[facility]08-05-2024 Telephone encounter Note * Telephone Encounter - Kayla Montez LPN - 10/07/2023 1:09 PM EDT Our records indicate that there is a current script at [facility] of lisinopril. Prescription Refill Information The patient has been identified by name and date of : Yes Caregiver verified no other encounters exist for this prescription request: Yes Caregiver confirmed with patient/requestor that no other refills are due, in the near future, with this provider at this time: Yes The last office visit in the department: 06/10/23 Does the patient have a future office visit with this provider/department: Yes 12/11/23 Requested Prescriptions Pending Prescriptions Disp Refills predniSONE (DELTASONE) 10 mg tablet 21 tablet 0 Sig: Take two tablets for one week then one table for one week then discontinue Refused Prescriptions Disp Refills lisinopril (ZESTRIL) 40 mg tablet 30 tablet 5 Sig: Take 1 tablet by mouth once daily. Kayla Montez LPN October 07, 2023 1:18 PM [facility]07-[facility] NoteHNO ID: [id number] Author: KUSH GUTHRIE APRN.PLATE FILLER Service: ? Author Type: Nurse Practitioner Type: Progress Notes Filed: 09/27/2023 11:27 Note Text: Subjective HPI Nontoxic-appearing female presents urgent care accompanied by family member. Chief complaint nasal pain. Duration of symptoms 2 days. Associated symptoms enlarging left nares abscess. Presents today for evaluation. Rates pain 9 out of 10. States it is a severe headache. No other concerns. .Patient presents with: Derm Problem: Pt has area under Left nostril enlarged,redness, some drainage, severe headache, x 2 days PAST MEDICAL HISTORY Diagnosis Date Abdominal pain, right upper quadrant ADD (attention deficit disorder) Seeing psychiatry Anemia, unspecified Asthma Back pain chronic-Seeing Dr. Blankenship Bipolar affective disorder ([facility]) Chronic right shoulder pain Seeing Dr. Molina Closed dislocation of tarsometatarsal (joint) 01/18/2011 COPD (chronic obstructive pulmonary disease) ([facility]) Depressive disorder, not elsewhere classified 03/22/2005 Disorder of bone and cartilage, unspecified 02/09/2008 Distal radius fracture 01/05/2011 Dysuria Fibromyalgia GERD (gastroesophageal reflux disease) IBS (irritable bowel syndrome) Mitral regurgitation Severe Neck pain chronic-takes vicodin for this NSTEMI (non-ST elevated myocardial infarction) ([facility]) Seeing Dr. Hutton Other and unspecified hyperlipidemia Panic disorder without agoraphobia 03/22/2005 PMR (polymyalgia rheumatica) ([facility]) RA (rheumatoid arthritis) ([facility]) Unspecified essential hypertension 03/22/2005 PAST SURGICAL HISTORY Procedure Laterality Date COLONOSCOPY FLX DX W/COLLJ SPEC WHEN PFRMD 01/23/08 Normal COLONOSCOPY FLX DX W/COLLJ SPEC WHEN PFRMD 01/09/2012 Colonoscopy DIAGNOSTIC ARTHROSCOPY SHOULDER +- SYNOVIAL BX Right 04/10/2017 Right shoulder arthroscopy with open SAD and rotator cuff repair EGD TRANSORAL BIOPSY SINGLE/MULTIPLE 01/23/08 Minimal antral gastritis HEART CATHETERIZATION 01/2016 no intervention Partial hysterectomy still has ovaries PAST SURGICAL HISTORY OF 02/2016 total teeth extraction RMVL LENS MATERIAL PHACOFRAGMENTATION ASPIR 12/2010 Cataract Extraction RPR UMBILICAL HRNA 5 YRS/> REDUCIBLE 12/04/2016 Hernia repair, umbilical >5yr SURGICAL ARTHROSCOPY SHOULDER W/ROTATOR CUFF RPR Right 01/01/2018 Right shoulder arthroscopy SAD, Acromioplasty, debridement glenohumeral joint, biceps tenotomy, RCR, superior capsular reconstruction ALLERGIES Amlodipine, Ativan [Lorazepam], Baclofen, Methotrexate, Nadolol, Nexium [Esomeprazole Magnesium], Penicillin G, and Propranolol MEDICATIONS hydrOXYzine HCl (ATARAX) 50 mg tablet Take 1 tablet by mouth every 8 hours as needed for anxiety. SUMAtriptan (IMITREX) 50 mg tablet Take 1 tablet (50 mg) by mouth as needed for migraine headache (see administration instructions). START AT ONSET OF HEADACHE. MAY REPEAT DOSE AFTER 2 HOURS. meloxicam (MOBIC) 7.5 mg tablet Take 1 tablet by mouth two times a day. escitalopram oxalate (LEXAPRO) 20 mg tablet Take 1 tablet by mouth once daily. busPIRone (BUSPAR) 5 mg tablet Take 1 tablet by mouth three times a day. amitriptyline (ELAVIL) 100 mg tablet Take 1 tablet by mouth daily at bedtime. lisinopril (ZESTRIL) 40 mg tablet Take 1 tablet by mouth once daily. atorvastatin (LIPITOR) 40 mg tablet TAKE ONE TABLET BY MOUTH DAILY AT 9PM AT BEDTIME fluticasone-salmeterol (ADVAIR, WIXELA) 250-50 mcg/dose inhaler Inhale 1 Puff as instructed two times a day. pregabalin (LYRICA) 50 mg capsule Take 1 capsule by mouth two times a day for 180 days. potassium chloride ER (KLOR-CON) 20 mEq tablet Take 20 mEq by mouth. albuterol HFA (PROAIR HFA) 90 mcg/actuation inhaler Inhale 2 Puffs as instructed. nitroglycerin sublingual (NITROQUICK) 0.4 mg SL tablet Dissolve 0.4 mg under the tongue every 5 minutes as needed for chest pain. acetaminophen 325 mg cap Take by mouth. Dexlansoprazole (DEXILANT) 60 mg CpDM TAKE ONE CAPSULE BY MOUTH DAILY AT 9AM ondansetron orally disintegrating (ZOFRAN ODT) 4 mg disintegrating tablet Take 1 tablet by mouth every 8 hours as needed. fluticasone (FLONASE) 50 mcg/actuation nasal spray INSTILL 2 SPRAYS IN EACH NOSTRIL DAILY RINSE MOUTH AFTER USE (BULK) furosemide (LASIX) 40 mg tablet TAKE ONE TABLET BY MOUTH DAILY AT 9AM (Patient taking differently: Take 40 mg by mouth two times a day.) loperamide (IMODIUM) 2 mg cap(s) Take 1 capsule by mouth three times daily as needed. tiZANidine (ZANAFLEX) 4 mg tablet TAKE ONE TABLET BY MOUTH AT BEDTIME NEEDED FOR MUSCLE SPASMS (VIAL) hyoscyamine sublingual (LEVSIN SL) 0.125 mg Dissolve 1 tablet under the tongue three times daily as needed. ipratropium (ATROVENT) 0.02 % nebulizer solution Use 2.5 mL via nebulizer four times daily as needed for Wheezing/Shortness of Breath. Use over 5-15minutes. Dx:J45.40 Cholecalciferol, Vitamin D3, 2,000 unit (more content not included)...[facility]07-26-2024 History of Present illness Narrative* Kush Guthrie APRN.[facility] - 09/27/2023 11:08 AM EDT Images from the original note were not included. Subjective HPI Nontoxic-appearing female presents urgent care accompanied by family member. Chief complaint nasal pain. Duration of symptoms 2 days. Associated symptoms enlarging left nares abscess. Presents today for evaluation. Rates pain 9 out of 10. States it is a severe headache. No other concerns. .Patient presents with: Derm Problem: Pt has area under Left nostril enlarged,redness, some drainage, severe headache, x 2 days PAST MEDICAL HISTORY Diagnosis Date Abdominal pain, right upper quadrant ADD (attention deficit disorder) Seeing psychiatry Anemia, unspecified Asthma Back pain chronic-Seeing Dr. Blankenship Bipolar affective disorder ([facility]) Chronic right shoulder pain Seeing Dr. Molina Closed dislocation of tarsometatarsal (joint) 01/18/2011 COPD (chronic obstructive pulmonary disease) ([facility]) Depressive disorder, not elsewhere classified 03/22/2005 Disorder of bone and cartilage, unspecified 02/09/2008 Distal radius fracture 01/05/2011 Dysuria Fibromyalgia GERD (gastroesophageal reflux disease) IBS (irritable bowel syndrome) Mitral regurgitation Severe Neck pain chronic-takes vicodin for this NSTEMI (non-ST elevated myocardial infarction) ([facility]) Seeing Dr. Hutton Other and unspecified hyperlipidemia Panic disorder without agoraphobia 03/22/2005 PMR (polymyalgia rheumatica) ([facility]) RA (rheumatoid arthritis) ([facility]) Unspecified essential hypertension 03/22/2005 PAST SURGICAL HISTORY Procedure Laterality Date COLONOSCOPY FLX DX W/COLLJ SPEC WHEN PFRMD 01/23/08 Normal COLONOSCOPY FLX DX W/COLLJ SPEC WHEN PFRMD 01/09/2012 Colonoscopy DIAGNOSTIC ARTHROSCOPY SHOULDER +- SYNOVIAL BX Right 04/10/2017 Right shoulder arthroscopy with open SAD and rotator cuff repair EGD TRANSORAL BIOPSY SINGLE/MULTIPLE 01/23/08 Minimal antral gastritis HEART CATHETERIZATION 01/2016 no intervention Partial hysterectomy still has ovaries PAST SURGICAL HISTORY OF 02/2016 total teeth extraction RMVL LENS MATERIAL PHACOFRAGMENTATION ASPIR 12/2010 Cataract Extraction RPR UMBILICAL HRNA 5 YRS/> REDUCIBLE 12/04/2016 Hernia repair, umbilical >5yr SURGICAL ARTHROSCOPY SHOULDER W/ROTATOR CUFF RPR Right 01/01/2018 Right shoulder arthroscopy SAD, Acromioplasty, debridement glenohumeral joint, biceps tenotomy, RCR, superior capsular reconstruction ALLERGIES Amlodipine, Ativan [Lorazepam], Baclofen, Methotrexate, Nadolol, Nexium [Esomeprazole Magnesium], Penicillin G, and Propranolol MEDICATIONS hydrOXYzine HCl (ATARAX) 50 mg tablet Take 1 tablet by mouth every 8 hours as needed for anxiety. SUMAtriptan (IMITREX) 50 mg tablet Take 1 tablet (50 mg) by mouth as needed for migraine headache (see administration instructions). START AT ONSET OF HEADACHE. MAY REPEAT DOSE AFTER 2 HOURS. meloxicam (MOBIC) 7.5 mg tablet Take 1 tablet by mouth two times a day. escitalopram oxalate (LEXAPRO) 20 mg tablet Take 1 tablet by mouth once daily. busPIRone (BUSPAR) 5 mg tablet Take 1 tablet by mouth three times a day. amitriptyline (ELAVIL) 100 mg tablet Take 1 tablet by mouth daily at bedtime. lisinopril (ZESTRIL) 40 mg tablet Take 1 tablet by mouth once daily. atorvastatin (LIPITOR) 40 mg tablet TAKE ONE TABLET BY MOUTH DAILY AT 9PM AT BEDTIME fluticasone-salmeterol (ADVAIR, WIXELA) 250-50 mcg/dose inhaler Inhale 1 Puff as instructed two times a day. pregabalin (LYRICA) 50 mg capsule Take 1 capsule by mouth two times a day for 180 days. potassium chloride ER (KLOR-CON) 20 mEq tablet Take 20 mEq by mouth. albuterol HFA (PROAIR HFA) 90 mcg/actuation inhaler Inhale 2 Puffs as instructed. nitroglycerin sublingual (NITROQUICK) 0.4 mg SL tablet Dissolve 0.4 mg under the tongue every 5 minutes as needed for chest pain. acetaminophen 325 mg cap Take by mouth. Dexlansoprazole (DEXILANT) 60 mg CpDM TAKE ONE CAPSULE BY MOUTH DAILY AT 9AM ondansetron orally disintegrating (ZOFRAN ODT) 4 mg disintegrating tablet Take 1 tablet by mouth every 8 hours as needed. fluticasone (FLONASE) 50 mcg/actuation nasal spray INSTILL 2 SPRAYS IN EACH NOSTRIL DAILY RINSE MOUTH AFTER USE (BULK) furosemide (LASIX) 40 mg tablet TAKE ONE TABLET BY MOUTH DAILY AT 9AM (Patient taking differently: Take 40 mg by mouth two times a day.) loperamide (IMODIUM) 2 mg cap(s) Take 1 capsule by mouth three times daily as needed. tiZANidine (ZANAFLEX) 4 mg tablet TAKE ONE TABLET BY MOUTH AT BEDTIME NEEDED FOR MUSCLE SPASMS (VIAL) hyoscyamine sublingual (LEVSIN SL) 0.125 mg Dissolve 1 tablet under the tongue three times daily asneeded. ipratropium (ATROVENT) 0.02 % nebulizer solution Use 2.5 mL via nebulizer four times daily as needed for Wheezing/Shortness of Breath. Use over 5-15minutes. Dx:J45.40 Cholecalciferol, Vitamin D3, 2,000 unit tab Take 2 tablets by mouth once daily. amoxicillin-clavulanate potassium (AUGMENTIN) 875-125 mg per tablet Take 1 tablet by mouth every 12hours. (Patient not taking: Reported on 09/02/2023) predniSONE (DELTASONE) 20 mg tablet Take 1 tablet by mouth every 12 hours. (Patient not taking: Reported on 09/02/2023) guaiFENesin 1,200 mg Ta12 Take by mouth. (Patient not taking: Reported on 09/02/2023) predniSONE (DELTASONE) 10 mg tablet Take two tablets for one week then one table for one week then discontinue (Patient not taking: Reported on 09/02/2023) colestipol (COLESTID) 1 gram tablet TAKE ONE TABLET BY MOUTH TWICE DAILY @ 9AM & 5PM (Patient not taking: Reported on 07/05/2023) FAMILY HISTORY Problem Relation Age of Onset COPD Mother Breast Cancer Mother Heart Father DC COPD Father other (Pulmonary fibrosis) Father Social History Tobacco Use Smoking status: Former Packs/day: 0.50 Years: 20.00 Additional pack years: 0.00 Total pack years: 10.00 Types: Cigarettes Start date: 1973 Quit date: 03/04/1989 Years since quittin.5 Smokeless tobacco: Never Tobacco comments: Both parents smoked in childhood home. Lived with smoker as adult. Vaping Use Vaping Use: Never used Substance Use Topics Alcohol use: No Drug use: No BP 147/92 Pulse 73 Temp 36.4 C (97.6 F) Resp 20 Wt 57 kg (125 lb 10.6 oz) SpO2 99% BMI 26.72 kg/m Review of Systems Constitutional: Negative for chills, fever and malaise/fatigue. HENT: Negative for congestion, ear discharge, ear pain, sinus pain and sore throat. Eyes: Negative for blurred vision, pain, discharge and redness. Respiratory: Negative for cough, hemoptysis, sputum production, shortness of breath, wheezing and stridor. Cardiovascular: Negative for chest pain. Gastrointestinal: Negative for abdominal pain, diarrhea, nausea and vomiting. Musculoskeletal: Negative for myalgias. Skin: Negative for itching and rash. Neurological: Positive for headaches. Negative for dizziness. Objective Physical Exam Constitutional: General: She is not in acute distress. Appearance: She is not diaphoretic. HENT: Head: Normocephalic. Jaw: No trismus, tenderness, swelling or pain on movement. Nose: Comments: Approximately 1-1/2 cm x 5 mm septal abscess noted. Area is firm. Mouth/Throat: Mouth: Mucous membranes are moist. Pharynx: Oropharynx is clear. Uvula midline. No pharyngeal swelling, oropharyngeal exudate, posterior oropharyngeal erythema or uvula swelling. Eyes: Conjunctiva/sclera: Conjunctivae normal. Pupils: Pupils are equal, round, and reactive to light. Cardiovascular: Rate and Rhythm: Normal rate and regular rhythm. Heart sounds: Normal heart sounds. Pulmonary: Effort: Pulmonary effort is normal. No tachypnea, accessory muscle usage or respiratory distress. Breath sounds: Normal breath sounds. No stridor. No wheezing, rhonchi or rales. Abdominal: General: There is no distension. Palpations: Abdomen is soft. Tenderness: There is no abdominal tenderness. There is no guarding or rebound. Musculoskeletal: Cervical back: Normal range of motion and neck supple. No edema, erythema, rigidity or tenderness. No pain with movement. Normal range of motion. Lymphadenopathy: Cervical: No cervical adenopathy. Skin: General: Skin is warm and dry. Neurological: Mental Status: She is alert and oriented to person, place, and time. ASSESSMENT/PLAN: 1. Nasal septal abscess - ICD9: 478.19, ICD10: J34.0 Diagnosed with nasal septal abscess. Unable to facilitate ENT appointment today. Recommend the ED for further evaluation care. Will be seen at [facility]. Verbalized understand agreeswith plan of care. Kush Guthrie APRN.MAR[facility] documented in [facility] Telephone encounter Note * Telephone Encounter - Dali Rice APRN.CNP - 09/25/2023 9:49 AM EDT She is currently requiring 12 a month. She needs seen to see why they are this bad and what other treatment is indicated. Thank you Dali Rice APRN.[facility]07-24-2024 Miscellaneous Notes* Telephone Encounter - Dali Rice APRN.CNP - 09/25/2023 9:49 AM EDT She is currently requiring 12 a month. She needs seen to see why they are this bad and what other treatment is indicated. Thank you Dali Rice APRN.PLATE FILLER * Telephone Encounter - Kayla Montez LPN - 09/25/2023 9:11 AM EDT Prescription Refill Information The patient has been identified by name and date of : Yes Caregiver verified no other encounters exist for this prescription request: Yes Caregiver confirmed with patient/requestor that no other refills are due, in the near future, with this provider at this time: Yes The last office visit in the department: 06/10/23 Does the patient have a future office visit with this provider/department: Yes 12/11/23 Requested Prescriptions Pending Prescriptions Disp Refills SUMAtriptan (IMITREX) 50 mg tablet 4 tablet 2 Sig: Take 1 tablet (50 mg) by mouth as needed for migraine headache (see administration instructions). START AT ONSET OF HEADACHE. MAY REPEAT DOSE AFTER 2 HOURS. Kayla Montez LPN September 25, 2023 9:12 AM documented in this encounterMer[facility]07-[facility] Telephone encounter Note * Telephone Encounter - Kayla Montez LPN - 09/25/2023 9:11 AM EDT Prescription Refill Information The patient has been identified by name and date of : Yes Caregiver verified no other encounters exist for this prescription request: Yes Caregiver confirmed with patient/requestor that no other refills are due, in the near future, with this provider at this time: Yes The last office visit in the department: 06/10/23 Does the patient have a future office visit with this provider/department: Yes 12/11/23 Requested Prescriptions Pending Prescriptions Disp Refills SUMAtriptan (IMITREX) 50 mg tablet 4 tablet 2 Sig: Take 1 tablet (50 mg) by mouth as needed for migraine headache (see administration instructions). START AT ONSET OF HEADACHE. MAY REPEAT DOSE AFTER 2 HOURS. Kayla Montez LPN September 25, 2023 9:12 AM [facility]07-24-2024 Telephone encounter Note* Telephone Encounter - Kayla Montez LPN - 09/25/2023 9:06 AM EDT Prescription Refill Information The patient has been identified by name and date of : Yes Caregiver verified no other encounters exist for this prescription request: Yes Caregiver confirmed with patient/requestor that no other refills are due, in the near future, with this provider at this time: Yes The last office visit in the department: 06/10/23 Does the patient have a future office visit with this provider/department: Yes 12/11/23 Requested Prescriptions Pending Prescriptions Disp Refills hydrOXYzine HCl (ATARAX) 50 mg tablet 90 tablet 3 Sig: Take 1 tablet by mouth every 8 hours as needed for anxiety. Kayla Montez LPN September 25, 2023 9:07 AM [facility]07-24-2024 Miscellaneous Notes* Telephone Encounter - Kayla Montez LPN - 09/25/2023 9:06 AM EDT Prescription Refill Information The patient has been identified by name and date of : Yes Caregiver verified no other encounters exist for this prescription request: Yes Caregiver confirmed with patient/requestor that no other refills are due, in the near future, with this provider at this time: Yes The last office visit in the department: 06/10/23 Does the patient have a future office visit with this provider/department: Yes 12/11/23 Requested Prescriptions Pending Prescriptions Disp Refills hydrOXYzine HCl (ATARAX) 50 mg tablet 90 tablet 3 Sig: Take 1 tablet by mouth every 8 hours as needed for anxiety. Kayla Montez LPN September 25, 2023 9:07 AM documented in [facility] encounterMer[facility] Telephone encounter Note * Telephone Encounter - Donna Pickering MA - 09/18/2023 12:53 PM EDT Surgery has been scheduled as requested. Post op appointments have been scheduled and mailed to the patient. [facility]07-17-2024 Miscellaneous Notes* Telephone Encounter - Donna Pickering MA - 09/18/2023 12:53 PM EDT Surgery has been scheduled as requested. Post op appointments have been scheduled and mailed to the patient. * Telephone Encounter - Donna Pickering MA - 09/17/2023 9:58 AM EDT Please schedule OT for patient to follow post op appointment with Vickie Barth PA-C at [place] on 11/05/2023. I will mail out with post op visits. Thank you. * Telephone Encounter - Vickie Barth PA-C - 09/17/2023 9:43 AM EDT OT order signed. * Telephone Encounter - Donna Pickering MA - 09/17/2023 8:50 AM EDT Surgical request completed for right thumb CMC arthroplasty with tendon transfer and suspension at [facility] on 10/23/2023. Post op appointments have been scheduled. Please sign OT order. documented in this encounterMer[facility] Telephone encounter Note * Telephone Encounter - Donna Pickering MA - 09/17/2023 9:58 AM EDT Please schedule OT for patient to follow post op appointment with Vickie Barth PA-C at [place] on 11/05/2023. I will mail out with post op visits. Thank you. [facility]07-16-2024 Telephone encounter Note* Telephone Encounter - Vickie Barth PA-C - 09/17/2023 9:43 AM EDT OT order signed. [facility] Work Phone: 1(672) 659-230907-16-2024 Telephone encounter Note* Telephone Encounter - Donna Pickering MA - 09/17/2023 8:50 AM EDT Surgical request completed for right thumb CMC arthroplasty with tendon transfer and suspension at [facility] on 10/23/2023. Post op appointments have been scheduled. Please sign OT order. [facility]07-01-2024 NoteHNO ID: [id number] Author: SEBAS MOLINA MD Service: ? Author Type: Physician Type: Progress Notes Filed: 09/02/2023 11:43 Note Text: Sebas Molina MD Department of Orthopaedics Orthopaedics [address] [facility] [address] Dept: [phone] Dept September 02, 2023 CHIEF COMPLAINT: Pain and New of the Right Wrist, Pain and New of the Left Wrist, and Last seen 08/03/19 Right thumb CMCJ (cancelled surgery) HPI Patient here for evaluation bilateral wrist pain. Patient states her pain at the base of her thumbs. States she is also having some numbness and tingling her fingers. 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 Patient would like injections. She does not want to have surgery. Taking Meloxicam for her pain and helps some. X-rays done today. Significant other Angel with patient today. ASSESSMENT: M18.11 Primary osteoarthritis of first carpometacarpal joint of right hand (primary encounter diagnosis) PLAN: Severe CMC arthritis on the right. We discussed again the risks, benefits, alternatives and potential complications involving both operative and nonoperative treatment. She understands and wishes to pursue surgery. Will get her scheduled at her convenience. FOLLOW UP INSTRUCTIONS: As above OBJECTIVE: Ms. Leyda Lopez is a pleasant 62 year old in no apparent distress. Gen:There were no vitals taken for this visit. nl development, non obese, no deformities ENT: Normocephalic, normal hearing, moist mucosa CV: Pulses:Radial= 2+ and symmetric, capillary refill < 2 secs, no peripheral edema/varicosities Skin: no rash, bruising or lesions. Good turgor. Psych: cooperative and appropriate, alert and oriented x 3, good mood and affect. Musculoskeletal: Moderate swelling at the basal joint. Tender to palpation. Pain and crepitance on grind testing. No significant hyperextension at the MCP joint. IMAGIN views of bilateral hands and wrists show severe CMC osteoarthritis on the right and moderate to severe on the left. Supporting Subjective Information Below: Past Medical History: PAST MEDICAL HISTORY Diagnosis Date Abdominal pain, right upper quadrant ADD (attention deficit disorder) Seeing psychiatry Anemia, unspecified Asthma Back pain chronic-Seeing Dr. Blankenship Bipolar affective disorder ([facility]) Chronic right shoulder pain Seeing Dr. Molina Closed dislocation of tarsometatarsal (joint) 01/18/2011 COPD (chronic obstructive pulmonary disease) ([facility]) Depressive disorder, not elsewhere classified 03/22/2005 Disorder of bone and cartilage, unspecified 02/09/2008 Distal radius fracture 01/05/2011 Dysuria Fibromyalgia GERD (gastroesophageal reflux disease) IBS (irritable bowel syndrome) Mitral regurgitation Severe Neck pain chronic-takes vicodin for this NSTEMI (non-ST elevated myocardial infarction) ([facility]) Seeing Dr. Hutton Other and unspecified hyperlipidemia Panic disorder without agoraphobia 03/22/2005 PMR (polymyalgia rheumatica) ([facility]) RA (rheumatoid arthritis) ([facility]) Unspecified essential hypertension 03/22/2005 Past Surgical History: PAST SURGICAL HISTORY Procedure Laterality Date COLONOSCOPY FLX DX W/COLLJ SPEC WHEN PFRMD 01/23/08 Normal COLONOSCOPY FLX DX W/COLLJ SPEC WHEN PFRMD 01/09/2012 Colonoscopy DIAGNOSTIC ARTHROSCOPY SHOULDER +- SYNOVIAL BX Right 04/10/2017 Right shoulder arthroscopy with open SAD and rotator cuff repair EGD TRANSORAL BIOPSY SINGLE/MULTIPLE 01/23/08 Minimal antral gastritis HEART CATHETERIZATION 01/2016 no intervention Partial hysterectomy still has ovaries PAST SURGICAL HISTORY OF 02/2016 total teeth extraction RMVL LENS MATERIAL PHACOFRAGMENTATION ASPIR 12/2010 Cataract Extraction RPR UMBILICAL HRNA 5 YRS/> REDUCIBLE 12/04/2016 Hernia repair, umbilical >5yr SURGICAL ARTHROSCOPY SHOULDER W/ROTATOR CUFF RPR Right 01/01/2018 Right shoulder arthroscopy SAD, Acromioplasty, debridement glenohumeral joint, biceps tenotomy, RCR, superior capsular reconstruction Family History: FAMILY HISTORY Problem Relation Age of Onset COPD Mother Breast Cancer Mother Heart Father DC COPD Father other (Pulmonary fibrosis) Father Social History: Social History Tobacco Use Smoking status: Former Packs/day: 0.50 Years: 20.00 Additional pack years: 0.00 Total pack years: 10.00 Types: Cigarettes Start date: 1973 Quit date: 03/04/1989 Years since quittin.5 Smokeless tobacco: Never Tobacco comments: Both parents smoked in childhood home. Lived with smoker as adult. Vaping Use Vaping Use: Never used Substance Use Topics Alcohol use: No Drug use: No Medications: Current Outpatient Medications Medication Sig SUMAtriptan (IMITREX) 50 mg tablet Take 1 tablet (50 mg) by mouth as needed for migraine headache (see administration instructions). START AT ONSET OF HEADACHE. MAY REPEAT DOSE AFTER 2 HOURS. es (more content not included)...[facility]07-01-2024 History of Present illness Narrative* Sebas Molina MD - 09/02/2023 9:14 AM EDT Sebas Molina MD Department of Orthopaedics Orthopaedics [address] [address] Dept: [phone] Dept September 02, 2023 CHIEF COMPLAINT: Pain and New of the Right Wrist, Pain and New of the Left Wrist, and Last seen 08/03/19 Right thumb CMCJ (cancelled surgery) HPI Patient here for evaluation bilateral wrist pain. Patient states her pain at the base of her thumbs. States she is also having some numbness and tingling her fingers. 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 Patient would like injections. She does not want to have surgery. Taking Meloxicam for her pain and helps some. X-rays done today. Significant other Angel with patient today. ASSESSMENT: M18.11 Primary osteoarthritis of first carpometacarpal joint of right hand (primary encounter diagnosis) PLAN: Severe CMC arthritis on the right. We discussed again the risks, benefits, alternatives and potential complications involving both operative and nonoperative treatment. She understands and wishes to pursue surgery. Will get her scheduled at her convenience. FOLLOW UP INSTRUCTIONS: As above OBJECTIVE: Ms. Leyda Lopez is a pleasant 62 year old in no apparent distress. Gen:There were no vitals taken for this visit. nl development, non obese, no deformities ENT: Normocephalic, normal hearing, moist mucosa CV: Pulses:Radial= 2+ and symmetric, capillary refill < 2 secs, no peripheral edema/varicosities Skin: no rash, bruising or lesions. Good turgor. Psych: cooperative and appropriate, alert and oriented x 3, good mood and affect. Musculoskeletal: Moderate swelling at the basal joint. Tender to palpation. Pain and crepitance on grind testing. Nosignificant hyperextension at the MCP joint. IMAGIN views of bilateral hands and wrists show severe CMC osteoarthritis on the right and moderate to severe on the left. Supporting Subjective Information Below: Past Medical History: PAST MEDICAL HISTORY Diagnosis Date Abdominal pain, right upper quadrant ADD (attention deficit disorder) Seeing psychiatry Anemia, unspecified Asthma Back pain chronic-Seeing Dr. Blankenship Bipolar affective disorder ([facility]) Chronic right shoulder pain Seeing Dr. Molina Closed dislocation of tarsometatarsal (joint) 01/18/2011 COPD (chronic obstructive pulmonary disease) ([facility]) Depressive disorder, not elsewhere classified 03/22/2005 Disorder of bone and cartilage, unspecified 02/09/2008 Distal radius fracture 01/05/2011 Dysuria Fibromyalgia GERD (gastroesophageal reflux disease) IBS (irritable bowel syndrome) Mitral regurgitation Severe Neck pain chronic-takes vicodin for this NSTEMI (non-ST elevated myocardial infarction) ([facility]) Seeing Dr. Hutton Other and unspecified hyperlipidemia Panic disorder without agoraphobia 03/22/2005 PMR (polymyalgia rheumatica) ([facility]) RA (rheumatoid arthritis) ([facility]) Unspecified essential hypertension 03/22/2005 Past Surgical History: PAST SURGICAL HISTORY Procedure Laterality Date COLONOSCOPY FLX DX W/COLLJ SPEC WHEN PFRMD 01/23/08 Normal COLONOSCOPY FLX DX W/COLLJ SPEC WHEN PFRMD 01/09/2012 Colonoscopy DIAGNOSTIC ARTHROSCOPY SHOULDER +- SYNOVIAL BX Right 04/10/2017 Right shoulder arthroscopy with open SAD and rotator cuff repair EGD TRANSORAL BIOPSY SINGLE/MULTIPLE 01/23/08 Minimal antral gastritis HEART CATHETERIZATION 01/2016 no intervention Partial hysterectomy still has ovaries PAST SURGICAL HISTORY OF 02/2016 total teeth extraction RMVL LENS MATERIAL PHACOFRAGMENTATION ASPIR 12/2010 Cataract Extraction RPR UMBILICAL HRNA 5 YRS/> REDUCIBLE 12/04/2016 Hernia repair, umbilical >5yr SURGICAL ARTHROSCOPY SHOULDER W/ROTATOR CUFF RPR Right 01/01/2018 Right shoulder arthroscopy SAD, Acromioplasty, debridement glenohumeral joint, biceps tenotomy, RCR, superior capsular reconstruction Family History: FAMILY HISTORY Problem Relation Age of Onset COPD Mother Breast Cancer Mother Heart Father DC COPD Father other (Pulmonary fibrosis) Father Social History: Social History Tobacco Use Smoking status: Former Packs/day: 0.50 Years: 20.00 Additional pack years: 0.00 Total pack years: 10.00 Types: Cigarettes Start date: 1973 Quit date: 03/04/1989 Years since quittin.5 Smokeless tobacco: Never Tobacco comments: Both parents smoked in childhood home. Lived with smoker as adult. Vaping Use Vaping Use: Never used Substance Use Topics Alcohol use: No Drug use: No Medications: Current Outpatient Medications Medication Sig SUMAtriptan (IMITREX) 50 mg tablet Take 1 tablet (50 mg) by mouth as needed for migraine headache (see administration instructions). START AT ONSET OF HEADACHE. MAY REPEAT DOSE AFTER 2 HOURS. escitalopram oxalate (LEXAPRO) 20 mg tablet Take 1 tablet by mouth once daily. busPIRone (BUSPAR) 5 mg tablet Take 1 tablet by mouth three times a day. amitriptyline (ELAVIL) 100 mg tablet Take 1 tablet by mouth daily at bedtime. meloxicam (MOBIC) 7.5 mg tablet Take 1 tablet by mouth once daily. lisinopril (ZESTRIL) 40 mg tablet Take 1 tablet by mouth once daily. atorvastatin (LIPITOR) 40 mg tablet TAKE ONE TABLET BY MOUTH DAILY AT 9PM AT BEDTIME fluticasone-salmeterol (ADVAIR, WIXELA) 250-50 mcg/dose inhaler Inhale 1 Puff as instructed two times a day. pregabalin (LYRICA) 50 mg capsule Take 1 capsule by mouth two times a day for 180 days. potassium chloride ER (KLOR-CON) 20 mEq tablet Take 20 mEq by mouth. albuterol HFA (PROAIR HFA) 90 mcg/actuation inhaler Inhale 2 Puffs as instructed. nitroglycerin sublingual (NITROQUICK) 0.4 mg SL tablet Dissolve 0.4 mg under the tongue every 5 minutes as needed for chest pain. acetaminophen 325 mg cap Take by mouth. Dexlansoprazole (DEXILANT) 60 mg CpDM TAKE ONE CAPSULE BY MOUTH DAILY AT 9AM ondansetron orally disintegrating (ZOFRAN ODT) 4 mg disintegrating tablet Take 1 tablet by mouth every 8 hours as needed. fluticasone (FLONASE) 50 mcg/actuation nasal spray INSTILL 2 SPRAYS IN EACH NOSTRIL DAILY RINSE MOUTH AFTER USE (BULK) furosemide (LASIX) 40 mg tablet TAKE ONE TABLET BY MOUTH DAILY AT 9AM (Patient taking differently: Take 40 mg by mouth two times a day.) loperamide (IMODIUM) 2 mg cap(s) Take 1 capsule by mouth three times daily as needed. tiZANidine (ZANAFLEX) 4 mg tablet TAKE ONE TABLET BY MOUTH AT BEDTIME NEEDED FOR MUSCLE SPASMS (VIAL) hyoscyamine sublingual (LEVSIN SL) 0.125 mg Dissolve 1 tablet under the tongue three times daily asneeded. ipratropium (ATROVENT) 0.02 % nebulizer solution Use 2.5 mL via nebulizer four times daily as needed for Wheezing/Shortness of Breath. Use over 5-15minutes. Dx:J45.40 Cholecalciferol, Vitamin D3, 2,000 unit tab Take 2 tablets by mouth once daily. amoxicillin-clavulanate potassium (AUGMENTIN) 875-125 mg per tablet Take 1 tablet by mouth every 12hours. (Patient not taking: Reported on 09/02/2023) predniSONE (DELTASONE) 20 mg tablet Take 1 tablet by mouth every 12 hours. (Patient not taking: Reported on 09/02/2023) guaiFENesin 1,200 mg Ta12 Take by mouth. (Patient not taking: Reported on 09/02/2023) predniSONE (DELTASONE) 10 mg tablet Take two tablets for one week then one table for one week then discontinue (Patient not taking: Reported on 09/02/2023) hydrOXYzine HCl (ATARAX) 50 mg tablet Take 1 tablet by mouth every 8 hours as needed for anxiety. colestipol (COLESTID) 1 gram tablet TAKE ONE TABLET BY MOUTH TWICE DAILY @ 9AM & 5PM (Patient not taking: Reported on 07/05/2023) No current facility-administered medications for this visit. Allergies: Amlodipine, Ativan [Lorazepam], Baclofen, Methotrexate, Nadolol, Nexium [Esomeprazole Magnesium], Penicillin G, and Propranolol ROS: General (negative for fatigue, malaise, weight loss/gain) HEENT (negative for headache, earache, recent vision changes, sinus pain, sore throat) Respiratory (no recent shortness of breath, hemoptysis) CV (negative for chest tightness, palpitations) Musculoskeletal (see HPI) Psych (no depression, anxiety) REFERRING PHYSICIAN: Consultation requested by Dr. Palacio for an opinion regarding thumb/wrist pain. My final recommendations will be communicated back to the requesting physician by way of shared Medical record or letterto requesting physician via US mail. Velvet Palacio MD [address] [facility] [address] Sebas Molina MD documented in this encounterMer[facility] History of Present illness Narrative* Ivon Dukes RT(R) - 09/02/2023 8:40 AM EDT Radiology Service Progress Note PATIENT NAME: Leyda Lopez DATE OF SERVICE: September 02, 2023 TIME: 8:58 AM PATIENT IDENTITY VERIFICATION COMPLETED USING TWO (2) IDENTIFIERS: Name and Date of confirmedby patient verbally. FALL SCREENING: Has the patient had 2 falls in the last year or 1 fall with injury or currently using an Ambulatory Assistive Device (Walker, Cane, Wheelchair, Crutches, etc.)? No PATIENT GENDER DATA: Female. status: : No status: NO. PATIENT RELEVANT IMPLANT DATA REVIEWED: Yes PATIENT PRESENTS WITH AN IMPLANTABLE OR ATTACHED RETAIL CASHIER: No RADIOLOGY DEPARTMENT: General X-ray: Exam(s) Completed: Upper Extremity X- Ray(s): Wrist, bilateral PERIPHERAL IV DATA: Not applicable SIGNED BY: RT Mary(Velia) September 02, 2023 8:58 AM documented in this encounterMercy [facility]07-01-2024 NoteHNO ID: [id number] Author: IVON DUKES RT(R) Service: ? Author Type: Rn Perinatal Type: Progress Notes Filed: 09/02/2023 09:08 Note Text: Radiology Service Progress Note PATIENT NAME: Leyda Lopez DATE OF SERVICE: September 02, 2023 TIME: 8:58 AM PATIENT IDENTITY VERIFICATION COMPLETED USING TWO (2) IDENTIFIERS: Name and Date of confirmed by patient verbally. FALL SCREENING: Has the patient had 2 falls in the last year or 1 fall with injury or currently using an Ambulatory Assistive Device (Walker, Cane, Wheelchair, Crutches, etc.)? No PATIENT GENDER DATA: Female. status: : No status: NO. PATIENT RELEVANT IMPLANT DATA REVIEWED: Yes PATIENT PRESENTS WITH AN IMPLANTABLE OR ATTACHED RETAIL CASHIER: No RADIOLOGY DEPARTMENT: General X-ray: Exam(s) Completed: Upper Extremity X-Ray(s): Wrist, bilateral PERIPHERAL IV DATA: Not applicable SIGNED BY: RT Mary(Velia) September 02, 2023 8:58 [facility]06-28-2024 Telephone encounter Note* Telephone Encounter - Brionna Caceres LPN - 08/30/2023 8:47 AM EDT RX filled 07/2023 with 5 refills. Brionna Caceres LPN [facility]06-28-2024 Miscellaneous Notes* Telephone Encounter - Brionna Caceres LPN - 08/30/2023 8:47 AM EDT RX filled 07/2023 with 5 refills. Brionna Caceres LPN documented in this encounterMercy [facility]06-28-2024 Telephone encounter Note * Telephone Encounter - Ute Vincent LPN - 08/30/2023 7:44 AM EDT Prescription Refill Information The patient has been identified by name and date of : Yes Caregiver verified no other encounters exist for this prescription request: Yes Caregiver confirmed with patient/requestor that no other refills are due, in the near future, with this provider at this time: Yes The last office visit in the department: 06/10/23 Does the patient have a future office visit with this provider/department: Yes Requested Prescriptions Pending Prescriptions Disp Refills SUMAtriptan (IMITREX) 50 mg tablet 4 tablet 2 Sig: Take 1 tablet (50 mg) by mouth as needed for migraine headache (see administration instructions). START AT ONSET OF HEADACHE. MAY REPEAT DOSE AFTER 2 HOURS. Ute Vincent LPN August 30, 2023 7:44 AM [facility] Work Phone: 1(371) 978-482106-28-2024 Miscellaneous Notes* Telephone Encounter - Ute Vincent LPN - 08/30/2023 7:44 AM EDT Prescription Refill Information The patient has been identified by name and date of : Yes Caregiver verified no other encounters exist for this prescription request: Yes Caregiver confirmed with patient/requestor that no other refills are due, in the near future, with this provider at this time: Yes The last office visit in the department: 06/10/23 Does the patient have a future office visit with this provider/department: Yes Requested Prescriptions Pending Prescriptions Disp Refills SUMAtriptan (IMITREX) 50 mg tablet 4 tablet 2 Sig: Take 1 tablet (50 mg) by mouth as needed for migraine headache (see administration instructions). START AT ONSET OF HEADACHE. MAY REPEAT DOSE AFTER 2 HOURS. Ute Vincent LPN August 30, 2023 7:44 AM documented in this encounterMercy Health [facility]06-26-2024 NotePatient Outreach (INTMMN) LEYDA LOPEZ ([id number]) 1960 F Date Time Provider Department 08/28/23 VELVET PALACIO INTMMN During your visit today, we recorded the following information about you: Allergies As of Date: 08/28/2023 Noted Allergy Reaction AMLODIPINE 06/13/2023 14 - Other: See Comments Comments: shaky and jittery ATIVAN (LORAZEPAM) 08/24/2014 1 - Mental Status Change 11 - Vomiting Comments: mood swings BACLOFEN 06/04/2014 1 - Mental Status Change Comments: angry,mood effect METHOTREXATE 12/20/2011 11 - Vomiting Comments: abdomen pain,vomiting, sbo NADOLOL 02/05/2013 5 - Intolerance Comments: body burning,tingly NEXIUM (ESOMEPRAZOLE MAGNESIUM) 07/15/2015 14 - Other: See Comments Comments: reflux-no relief PENICILLIN G 09/29/2012 8 - GI Upset Comments: patient reports these symptoms after medication was ordered PROPRANOLOL 01/30/2013 5 - Intolerance Comments: fatigue,sleepy Date Reviewed: 07/05/2023 Reviewed by: Radha Willams MD - Fully Assessed Visit Diagnosis:Encounter for screening mammogram for breast cancer [Z12.31] Order(s):[facility] SCRE[facility] [[id number]] Order #: [id number] FUTURE Prescriptions as of 09/02/2023 - SUMAtriptan (IMITREX) 50 mg tablet Take 1 tablet (50 mg) by mouth as needed for migraine headache (see administration instructions). START AT ONSET OF HEADACHE. MAY REPEAT DOSE AFTER 2 HOURS. - escitalopram oxalate (LEXAPRO) 20 mg tablet Take 1 tablet by mouth once daily. - busPIRone (BUSPAR) 5 mg tablet Take 1 tablet by mouth three times a day. - amitriptyline (ELAVIL) 100 mg tablet Take 1 tablet by mouth daily at bedtime. - meloxicam (MOBIC) 7.5 mg tablet Take 1 tablet by mouth once daily. - lisinopril (ZESTRIL) 40 mg tablet Take 1 tablet by mouth once daily. - atorvastatin (LIPITOR) 40 mg tablet TAKE ONE TABLET BY MOUTH DAILY AT 9PM AT BEDTIME - fluticasone-salmeterol (ADVAIR, WIXELA) 250-50 mcg/dose inhaler Inhale 1 Puff as instructed two times a day. - pregabalin (LYRICA) 50 mg capsule Take 1 capsule by mouth two times a day for 180 days. - amoxicillin-clavulanate potassium (AUGMENTIN) 875-125 mg per tablet Take 1 tablet by mouth every 12 hours. - potassium chloride ER (KLOR-CON) 20 mEq tablet Take 20 mEq by mouth. - predniSONE (DELTASONE) 20 mg tablet Take 1 tablet by mouth every 12 hours. - albuterol HFA (PROAIR HFA) 90 mcg/actuation inhaler Inhale 2 Puffs as instructed. - nitroglycerin sublingual (NITROQUICK) 0.4 mg SL tablet Dissolve 0.4 mg under the tongue every 5 minutes as needed for chest pain. - guaiFENesin 1,200 mg Ta12 Take by mouth. - acetaminophen 325 mg cap Take by mouth. - predniSONE (DELTASONE) 10 mg tablet Take two tablets for one week then one table for one week then discontinue - Dexlansoprazole (DEXILANT) 60 mg CpDM TAKE ONE CAPSULE BY MOUTH DAILY AT 9AM - ondansetron orally disintegrating (ZOFRAN ODT) 4 mg disintegrating tablet Take 1 tablet by mouth every 8 hours as needed. - hydrOXYzine HCl (ATARAX) 50 mg tablet Take 1 tablet by mouth every 8 hours as needed for anxiety. - fluticasone (FLONASE) 50 mcg/actuation nasal spray INSTILL 2 SPRAYS IN EACH NOSTRIL DAILY RINSE MOUTH AFTER USE (BULK) - furosemide (LASIX) 40 mg tablet TAKE ONE TABLET BY MOUTH DAILY AT 9AM - loperamide (IMODIUM) 2 mg cap(s) Take 1 capsule by mouth three times daily as needed. - tiZANidine (ZANAFLEX) 4 mg tablet TAKE ONE TABLET BY MOUTH AT BEDTIME NEEDED FOR MUSCLE SPASMS (VIAL) - colestipol (COLESTID) 1 gram tablet TAKE ONE TABLET BY MOUTH TWICE DAILY @ 9AM AND 5PM - hyoscyamine sublingual (LEVSIN SL) 0.125 mg Dissolve 1 tablet under the tongue three times daily as needed. - ipratropium (ATROVENT) 0.02 % nebulizer solution Use 2.5 mL via nebulizer four times daily as needed for Wheezing/Shortness of Breath. Use over 5-15minutes. Dx:J45.40 - Cholecalciferol, Vitamin D3, 2,000 unit tab Take 2 tablets by mouth once daily. Meds Comments as of 07/05/2023: Patient is not sure what antibiotic she was place on in hospital Problem List As Of Date 08/28/2023 Noted Resolved Essential hypertension [I10] 03/22/2005 Moderate episode of recurrent major depressive *03/22/2005 PANIC DISORDER WITHOUT AGORAPHOBIA [F41.0] 03/22/2005 Asthma [J45.909] 03/22/2005 Hyperlipidemia [E78.5] ANEMIA BLOOD LOSS CHRONIC [D50.0] 12/23/2007 12/01/2013 BONE AND CARTILAGE DIS NOS [M89.9, M94.9] 02/09/2008 CRI (chronic renal insufficiency) (HCC) [N18.9] 09/30/2009 12/01/2013 Bipolar affective [F31.9] 04/27/2010 05/21/2018 COPD (chronic obstructive pulmonary disease) [J*10/04/2010 Hypokalemia [E87.6] 10/04/2010 12/01/2013 Left Plantar fasciitis [M72.2] 10/04/2010 12/01/2013 GERD (gastroesophageal reflux disease) [K21.9] 10/25/2010 Dysphagia [R13.10] 10/25/2010 12/01/2013 Calcaneal spur [M77.30] 01/08/2011 Chronic pain (more content not included)...[facility]06-17-2024 Telephone encounter Note* Telephone Encounter - Leola Shelley LPN - 08/19/2023 5:47 PM EDT Spoke to Patient, she has refills for Furosemide 40mg, not needed at this time. Leola Shelley LPN [facility]06-17-2024 Miscellaneous Notes* Telephone Encounter - Leola Shelley LPN - 08/19/2023 5:47 PM EDT Spoke to Patient, she has refills for Furosemide 40mg, not needed at this time. Leola Shelley LPN documented in [facility] encounterMer[facility] Telephone encounter Note * Telephone Encounter - Deborah Chaudhary RN - 08/16/2023 10:12 AM EDT Pt notified via [employer] message that Dr. Willams has requested she complete her pulmonary testing and follow-up CXR. Chronic steroid (I.e. Prednisone) refill will not be given at this time. Deborah Chaudhary RN August 16, 2023 10:14 AM [facility]06-14-2024 Miscellaneous Notes* Telephone Encounter - Deborah Chaudhary RN - 08/16/2023 10:12 AM EDT Pt notified via [employer] message that Dr. Willams has requested she complete her pulmonary testing and follow-up CXR. Chronic steroid (I.e. Prednisone) refill will not be given at this time. Deborah Chaudhary RN August 16, 2023 10:14 AM * Telephone Encounter - Barby Abdi - 08/15/2023 3:39 PM EDT Prescription Refill Information The patient has been identified by name and date of : Yes Caregiver verified no other encounters exist for this prescription request: Yes Caregiver confirmed with patient/requestor that no other refills are due, in the near future, with this provider at this time: Yes The last office visit in the department: 07/05/23 Does the patient have a future office visit with this provider/department: Yes Requested Prescriptions Pending Prescriptions Disp Refills predniSONE (DELTASONE) 10 mg tablet Sig: Take 1 tablet by mouth once daily. Barby Abdi August 15, 2023 3:39 PM documented in this encounterMer[facility]06-[facility] Telephone encounter Note * Telephone Encounter - Barby Abdi - 08/15/2023 3:39 PM EDT Prescription Refill Information The patient has been identified by name and date of : Yes Caregiver verified no other encounters exist for this prescription request: Yes Caregiver confirmed with patient/requestor that no other refills are due, in the near future, with this provider at this time: Yes The last office visit in the department: 07/05/23 Does the patient have a future office visit with this provider/department: Yes Requested Prescriptions Pending Prescriptions Disp Refills predniSONE (DELTASONE) 10 mg tablet Sig: Take 1 tablet by mouth once daily. Barby Abdi August 15, 2023 3:39 PM [facility]06-11-2024 Telephone encounter Note* Telephone Encounter - Lilliana Pruitt LPN - 08/13/2023 3:28 PM EDT Pt called and she is having problems getting her Lyrica. I called the pharmacy and they reports they have our prescription but it is coming up as of 08-02-23 coverage has been terminated. Pt notified and instructed to call her insurance company and may need to take her insurance cards over to the pharmacy. Pt verbalizes understanding. Lilliana Pruitt LPN [facility]06-11-2024 Miscellaneous Notes* Telephone Encounter - Lilliana Pruitt LPN - 08/13/2023 3:28 PM EDT Pt called and she is having problems getting her Lyrica. I called the pharmacy and they reports they have our prescription but it is coming up as of 08-02-23 coverage has been terminated. Pt notified and instructed to call her insurance company and may need to take her insurance cards over to the pharmacy. Pt verbalizes understanding. Lilliana Pruitt LPN documented in this encounterMer[facility]06-11-2024 Telephone encounter Note * Telephone Encounter - Elisa Christianson OCCA - 08/13/2023 8:53 AM EDT MC message sent to patient with providers message below. ROBINA Finnegan [facility]06-11-2024 Miscellaneous Notes* Telephone Encounter - Elisa Christianson OCCA - 08/13/2023 8:53 AM EDT MC message sent to patient with providers message below. ROBINA Finnegan * Telephone Encounter - Leyda Lincoln LPN - 08/06/2023 1:40 PM EDT Attempted to contact patient but no answer. Left message for patient to call office and ask to speak to a nurse regarding medication refills. * Telephone Encounter - Melissa Rodríguez MD - 08/05/2023 11:00 PM EDT Patient should follow up with pulmonology since prednisone was to be tapered off as prescribed. If feels need more prednisone, should follow up with them to determine plan of care. She has 4 refills left of pregabalin at [facility] according to Medication Dispense Information (last dispensed 07/10/23 60 pills with 4 RFs). Medlist also shows she has refills. * Telephone Encounter - Shelby Woods MA - 08/05/2023 10:01 AM EDT Patient has been identified by name and date of : Yes Patient phones for refill(s): Requested Prescriptions Pending Prescriptions Disp Refills predniSONE (DELTASONE) 10 mg tablet 21 tablet 0 Sig: Take two tablets for one week then one table for one week then discontinue pregabalin (LYRICA) 50 mg capsule 60 capsule 5 Sig: Take 1 capsule by mouth two times a day for 180 days. Date of last office visit in primary care: 06/10/2023 Date of next office visit in primary care: 12/11/2023 Please advise. Thank you. Please see note from pulm nurse below. Shelby Woods MA. * Telephone Encounter - Brionna Caceres LPN - 08/05/2023 8:56 AM EDT Patient was given 21 day extended course of prednisone by pulmonary at [facility]. Instructed to stop prednisone after course completed. Brionna Caceres LPN documented in this encounterMer[facility]06-04-2024 Telephone encounter Note * Telephone Encounter - Leyda Lincoln LPN - 08/06/2023 1:40 PM EDT Attempted to contact patient but no answer. Left message for patient to call office and ask to speak to a nurse regarding medication refills. [facility]06-03-2024 Telephone encounter Note* Telephone Encounter - Melissa Rodríguez MD - 08/05/2023 11:00 PM EDT Patient should follow up with pulmonology since prednisone was to be tapered off as prescribed. If feels need more prednisone, should follow up with them to determine plan of care. She has 4 refills left of pregabalin at [facility] according to Medication Dispense Information (last dispensed 07/10/23 60 pills with 4 RFs). Medlist also shows she has refills. [facility] Work Phone: 1(800) 755-228706-03-2024 Telephone encounter Note* Telephone Encounter - Shelby Woods MA - 08/05/2023 3:47 PM EDT Patient has been identified by name and date of : Yes Patient phones for refill(s): Requested Prescriptions Pending Prescriptions Disp Refills escitalopram oxalate (LEXAPRO) 20 mg tablet 90 tablet 3 Sig: Take 1 tablet by mouth once daily. Date of last office visit in primary care: 06/10/2023 Date of next office visit in primary care: 08/03/2023 Please advise. Thank you. Shelby Woods MA. [facility]06-03-2024 Miscellaneous Notes* Telephone Encounter - Shelby Woods MA - 08/05/2023 3:47 PM EDT Patient has been identified by name and date of : Yes Patient phones for refill(s): Requested Prescriptions Pending Prescriptions Disp Refills escitalopram oxalate (LEXAPRO) 20 mg tablet 90 tablet 3 Sig: Take 1 tablet by mouth once daily. Date of last office visit in primary care: 06/10/2023 Date of next office visit in primary care: 08/03/2023 Please advise. Thank you. Shelby Woods MA. documented in this encounterMer[facility]06-[facility]-20[facility] Telephone encounter Note * Telephone Encounter - Shelby Woods MA - 08/05/2023 3:45 PM EDT Patient has been identified by name and date of : Yes Patient phones for refill(s): Requested Prescriptions Pending Prescriptions Disp Refills busPIRone (BUSPAR) 5 mg tablet 90 tablet 1 Sig: Take 1 tablet by mouth three times a day. Date of last office visit in primary care: 06/10/2023 Date of next office visit in primary care: 08/04/2023 Please advise. Thank you. Shelby Woods MA. [facility]06-03-2024 Miscellaneous Notes* Telephone Encounter - Shelby Woods MA - 08/05/2023 3:45 PM EDT Patient has been identified by name and date of : Yes Patient phones for refill(s): Requested Prescriptions Pending Prescriptions Disp Refills busPIRone (BUSPAR) 5 mg tablet 90 tablet 1 Sig: Take 1 tablet by mouth three times a day. Date of last office visit in primary care: 06/10/2023 Date of next office visit in primary care: 08/04/2023 Please advise. Thank you. Shelby Woods MA. documented in this encounterMer[facility]06-[facility]-2024 Telephone encounter Note * Telephone Encounter - Shelby Woods MA - 08/05/2023 10:01 AM EDT Patient has been identified by name and date of : Yes Patient phones for refill(s): Requested Prescriptions Pending Prescriptions Disp Refills predniSONE (DELTASONE) 10 mg tablet 21 tablet 0 Sig: Take two tablets for one week then one table for one week then discontinue pregabalin (LYRICA) 50 mg capsule 60 capsule 5 Sig: Take 1 capsule by mouth two times a day for 180 days. Date of last office visit in primary care: 06/10/2023 Date of next office visit in primary care: 12/11/2023 Please advise. Thank you. Please see note from pulm nurse below. Shelby Woods MA. [facility]06-03-2024 Telephone encounter Note* Telephone Encounter - Brionna Caceres LPN - 08/05/2023 8:56 AM EDT Patient was given 21 day extended course of prednisone by pulmonary at [facility]. Instructed to stop prednisone after course completed. Brionna Caceres LPN [facility]06-03-2024 Telephone encounter Note* Telephone Encounter - Brionna Caceres LPN - 08/05/2023 8:53 AM EDT 21 Day course of prednisone given on 07/22/2023. Patient to stop prednisone when course completed. Brionna Caceres LPN [facility]06-03-2024 Miscellaneous Notes* Telephone Encounter - Brionna Caceres LPN - 08/05/2023 8:53 AM EDT 21 Day course of prednisone given on 07/22/2023. Patient to stop prednisone when course completed. Brionna Caceres LPN documented in this encounterMercy [facility]05-18-2024 Telephone encounter Note * Telephone Encounter - Edith Babcock RN - 07/20/2023 11:27 AM EDT Patient has been identified by name and date of : Yes, Provider Date Time Patient phones for refill(s): Requested Prescriptions Pending Prescriptions Disp Refills SUMAtriptan (IMITREX) 50 mg tablet 4 tablet 2 Sig: Take 1 tablet (50 mg) by mouth as needed for migraine headache (see administration instructions). START AT ONSET OF HEADACHE. MAY REPEAT DOSE AFTER 2 HOURS. Date of last office visit in primary care: 06/10/2023 Date of next office visit in primary care: 12/11/2023 Please advise. Thank you. Edith Babcock RN. [facility]05-18-2024 Miscellaneous Notes* Telephone Encounter - Edith Babcock RN - 07/20/2023 11:27 AM EDT Patient has been identified by name and date of : Yes, Provider Date Time Patient phones for refill(s): Requested Prescriptions Pending Prescriptions Disp Refills SUMAtriptan (IMITREX) 50 mg tablet 4 tablet 2 Sig: Take 1 tablet (50 mg) by mouth as needed for migraine headache (see administration instructions). START AT ONSET OF HEADACHE. MAY REPEAT DOSE AFTER 2 HOURS. Date of last office visit in primary care: 06/10/2023 Date of next office visit in primary care: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 twice daily. Cholecalciferol, Vitamin D3, 2,000 unit tab Take 2 tablets by mouth once daily. amLODIPine (NORVASC) 2.5 mg tablet Take 1 tablet by mouth once daily. SUMAtriptan (IMITREX) 50 mg tablet Take 1 tablet (50 mg) by mouth as needed for migraine headache (see administration instructions). START AT ONSET OF HEADACHE. MAY REPEAT DOSE AFTER 2 HOURS. predniSONE (DELTASONE) 10 mg tablet Take two tablets for one week then one table for one week then discontinue escitalopram oxalate (LEXAPRO) 20 mg tablet Take 1 tablet by mouth once daily. colestipol (COLESTID) 1 gram tablet TAKE ONE TABLET BY MOUTH TWICE DAILY @ 9AM & 5PM (Patient not taking: Reported on 06/10/2023) hyoscyamine sublingual (LEVSIN SL) 0.125 mg Dissolve 1 tablet under the tongue three times daily asneeded. (Patient not taking: Reported on 06/10/2023) ipratropium (ATROVENT) 0.02 % nebulizer solution Use 2.5 mL via nebulizer four times daily as needed for Wheezing/Shortness of Breath. Use over 5-15minutes. Dx:J45.40 (Patient not taking: Reported on06/10/2023) PAST MEDICAL HISTORY Diagnosis Date Abdominal pain, right upper quadrant ADD (attention deficit disorder) Seeing psychiatry Anemia, unspecified Asthma Back pain chronic-Seeing Dr. Blankenship Bipolar affective disorder ([facility]) Chronic right shoulder pain Seeing Dr. Molina Closed dislocation of tarsometatarsal (joint) 01/18/2011 COPD (chronic obstructive pulmonary disease) ([facility]) Depressive disorder, not elsewhere classified 03/22/2005 Disorder of bone and cartilage, unspecified 02/09/2008 Distal radius fracture 01/05/2011 Dysuria Fibromyalgia GERD (gastroesophageal reflux disease) IBS (irritable bowel syndrome) Mitral regurgitation Severe Neck pain chronic-takes vicodin for this NSTEMI (non-ST elevated myocardial infarction) ([facility]) Seeing Dr. Hutton JD (obstructive sleep apnea) Other and unspecified hyperlipidemia Panic disorder without agoraphobia 03/22/2005 PMR (polymyalgia rheumatica) ([facility]) RA (rheumatoid arthritis) ([facility]) Unspecified essential hypertension 03/22/2005 Social History Tobacco Use Smoking status: Former Packs/day: .5 Types: Cigarettes Start date: 1973 Quit date: 03/04/1989 Years since quittin.2 Smokeless tobacco: Never Tobacco comments: Both parents smoked in childhood home. Lived with smoker as adult. Vaping Use Vaping Use: Never used Substance Use Topics Alcohol use: No Drug use: No Creatinine Date Value Ref Range Status 04/29/2023 1.08 (H) 0.58 - 0.96 mg/dL Final 02/11/2023 1.08 (H) 0.58 - 0.96 mg/dL Final 01/31/2022 1.17 (H) 0.58 - 0.96 mg/dL Final 07/26/2021 1.08 (H) 0.58 - 0.96 mg/dL Final ASSESSMENT/PLAN: 1. Community acquired pneumonia, unspecified laterality - ICD9: 486, ICD10: J18.9 (primary diagnosis) - XR CHEST 2V FRONTAL/LAT - CONSULT TO PULM/CRITICAL CARE 2. Acute on chronic respiratory failure with hypoxia (HCC) - ICD9: 518.84, 799.02, ICD10: J96.21 Improving with current treatment. Chest x-ray today. Continue with oxygen unchanged for now. Statesdoes not have a advertising operations coordinator. States was not using oxygen prior to her recent hospitalization. Will extend prednisone dosing per her request that she said was very helpful with her breathing. - XR CHEST 2V FRONTAL/LAT - CONSULT TO PULM/CRITICAL CARE 3. Stage 3 chronic kidney disease, unspecified whether stage 3a or 3b CKD (HCC) - ICD9: 585.3, ICD10: N18.30 - eGFR: 58 Stable - Counseled on avoiding NSAIDs, adequate hydration 4. Centrilobular emphysema (HCC) - ICD9: 492.8, ICD10: J43.2 - XR CHEST 2V FRONTAL/LAT - CONSULT TO PULM/CRITICAL CARE 5. Acute on chronic diastolic congestive heart failure (HCC) - ICD9: 428.33, 428.0, ICD10: I50.33 - Continue current medications - CONSULT TO CARDIOLOGY - NT PRO BNP 6. Essential hypertension - ICD9: 401.9, ICD10: I10 - suboptimal control - Continue current medications - Start amlodipine - Encouraged sodium restriction, DASH or Mediterranean diet - Recommend regular aerobic exercise - AMLODIPINE 2.5 MG TABLET - BASIC METABOLIC PNL 1 mo recheck blood pressure, CHF, pneumonia, hypoxia wivero cole or Dali 6 mo follow up MD Fernando Aranda APRN.[employer] Medical Decision Making: Problems: Moderate: 1+ chronic illnesses with change Data: Unique source(s) for external note(s) reviewed: 1 Unique test result(s) reviewed: 3+ Unique test(s) ordered: 3+ Risk: Moderate: Drug management Medical Decision Making Level: 4 - Moderate documented in [facility] Discharge summary Author Diana Bates [facility] June 06, 2023 11:05am Note Date/Time June 06, 2023 10:4 6am [facility] Medical Records Department [address] [place] [id number] Discharge Summary 06/06/23 1043 MR#: [id number] Acct: [id number] Name: LEYDA LOPEZ Rep #:[id number] : 1960 62 From: Diana Bates MD PCP: SHMUEL PAGAN Status:ADM IN Location: [place] [address] Providers Date of Admission: 06/04/23 Date of Discharge: 06/06/23 Primary Care Physician: SHMUEL PAGAN Reason For Visit: ACUTE ON CHR RESP FAILURE, PNEUMONIA Diagnosis Discharge Diagnosis (1) Acute and chronic respiratory failure with hypoxia: Status: Chronic Code(s): J96.21 - Acute and chronic respiratory failure with hypoxia (2) Pneumonia: Status: Acute Code(s): J18.9 - Pneumonia, unspecified organism Plan Patient is a 62-year-old lady with history of chronic hypoxic respiratory failure admitted with progressive shortness of breath. 1. Acute hypoxia ? Superimposed on chronic hypoxic respite failure due to combination of pneumonia and congestive heart failure. Admitted to a monitored bed for subsequent management 2. Acute on chronic congestive heart failure with preserved ejection fraction ? Echo from 2018 demonstrated EF of 55%. Patient admitted to monitored bed managed with strict input and output, daily weight, low-sodium diet fluid restriction as well as IV Lasix repeat echo ordered for reevaluation of her ejection fraction 3. Bibasilar pneumonia ? Patient is on broad antibiotic therapy with Zosyn in addition to supplemental oxygen as well as aerosol treatments as needed 4. Lactic acidosis ? Attributed to increased work of breathing 5. Bipolar disorder ? Patient is on multiple psychotropic medications with continued 6. Tardive dyskinesia ? Probably side effect of patient psychotropic medications 7. Chronic hypoxic respiratory failure Secondary to COPD patient is on baseline oxygen 3 L flow per minute 8. Hypertension - Blood pressure controlled, home medications continued with dose adjustment as needed 9. Fibromyalgia?continue home meds 10. Dyslipidemia -Patient is on statin therapy, continued at home dose 11. Tobacco dependence - Counseled on cessation, offered nicotine patch for tobacco cravings Time spent in the patient's overall evaluation,decision-making process, review of diagnostic data, adjustment of management, discussion with other providers, nursing nursing and ancillary staff involved in patient's care documentation, 32Minutes. Medications at Discharge Home Medications albuterol sulfate 90 mcg/actuation aerosol inhaler (ProAir HFA) 2 puff inhalation Q4H PRN PRN Sob &/Or Wheezing 07/26/14 nitroglycerin 0.4 mg sublingual tablet 0.4 mg sublingual PRN PRN CHEST PAIN 06/04/17 amitriptyline 100 mg tablet 100 mg PO QHS depresssion 10/10/22 meloxicam 7.5 mg tablet 7.5 mg PO DAILY pain 10/10/22 sumatriptan succinate 50 mg tablet 50 mg PO PRN PRN migraine headache 10/10/22 ondansetron 4 mg disintegrating tablet 4 mg PO Q8H PRN PRN Nausea #14 tabs 11/14/22 atorvastatin 40 mg tablet 40 mg PO QHS Cholesterol 05/11/23 buspirone 5 mg tablet 5 mg PO TID Anxiety 05/11/23 dexlansoprazole 60 mg capsule,biphase delayed release 60 mg PO DAILY GERD 05/11/23 escitalopram oxalate 20 mg tablet 20 mg PO DAILY depression 05/11/23 fluticasone propionate 50 mcg/actuation nasal spray,suspension 2 spray intranasal DAILY allergies 05/11/23 hydroxyzine HCl 50 mg tablet 50 mg PO TID PRN Anxiety 05/11/23 pregabalin 25 mg capsule 25 mg PO BID Nerve pain 05/11/23 tizanidine 4 mg tablet 4 mg PO QHS PRN PRN muscle spasm 05/11/23 acetaminophen 325 mg tablet 1,000 mg (3.0769 x 325 mg) PO Q8H PRN PRN fever/pain1-10 #0 tabs 05/20/23 lisinopril 40 mg tablet 40 mg PO DAILY 06/04/23 amoxicillin 875 mg-potassium clavulanate 125 mg tablet 1 tab PO BID #14 tabs 06/06/23 furosemide 40 mg tablet 40 mg PO BIDCM water pill #120 tabs 06/06/23 guaifenesin 1,200 mg tablet, extended release 12 hr (Mucus Relief ER) 1,200 mg PO BID #20 tabs 06/06/23 potassium chloride 20 mEq tablet,extended release(part/cryst) 20 meq PO DAILYCM #30 tabs 06/06/23 prednisone 20 mg tablet 20 mg PO BID #14 tabs 06/06/23 Physical Exam Narrative GENERAL: cooperative HEENT: Atraumatic; normocephalic EYES; Anicteric, Normal Conjunctiva NECK; supple, normal thyroid, RESPIRATORY: Diminished to auscultation CARDIOVASCULAR: Regular S1 S2, GI: soft, normoactive bowel sounds, : No Renal angle tenderness; EXTREMITIES: No edema, no clubbing, MUSCULOSKELETAL: no muscle wasting NEURO: Awake; no lateralizing signs. SKIN: No Rash PSYCH; Flat affect Weight / BMI Weight Weight: 58.7 kg Body Mass Index (BMI) 24.4 ABG / Lab / Microbiology Data 06/06/23 07:35 06/06/23 07:35 Laboratory: Laboratory Results - last 24 hr 06/06/23 07:35: WBC 7.4, RBC 3.62 L, Hgb 10.9 L, Hct 34.0 L, MCV 93.9, MCH 30.1,MCHC 32.1, RDW Std Deviation 52.8 H, RDW Coeff of Alejandra 15.3 H, Plt Count 208, MPV9.4, Immature Gran % (Auto) 0.400, Neut % (Auto) 63.7, Lymph % (Auto) 21.0, [place]% (Auto) 7.3, Eos % (Auto) 6.9 H, Baso % (Auto) 0.7, Absolute Neuts (auto) 4.8, Absolute Lymphs (auto) 1.56, Nucleated RBC % 0, Sodium 140, Potassium 3.4 L, Chloride 103, Carbon Dioxide 30.0, Anion Gap 7, BUN 23 H, Creatinine 1.14 H, Estim Creat Clear Calc 42.13, Est GFR (MDRD) Af Amer 62, Est GFR (MDRD) Non-Af 51 L, BUN/Creatinine Ratio 20.2 H, Glucose 180 H, Calcium 8.3 L, Phosphorus 3.8,Magnesium 1.8 Microbiology: Microbiology 06/04/23 20:20 Urine Catheter - Byrne Legionella Antigen - Final 06/04/23 20:20 Urine Catheter - Byrne Streptococcus pneumoniae Antigen (M - Final 06/04/23 11:30 Mucosa - Nose SARS-CoV-2, Influenza & RSV (PCR) - Final Radiography Diagnostic Testing: Radiology Impression Echocardiogram 06/05/23 09:03 Interpretation Summary Normal LV size. Left ventricular systolic function is normal. The estimated ejection fraction is 65 %. Normal left atrium. Pulmonary artery systolic pressure is 35 mmHg. Ordering Physician: Diana Bates Performed By: Rosangela Gray RDCS D/C Instructions Discharge Diet: 8 Cup Fluid Restriction and 2000 mg Sodium Diet Discharge Activity: Return to Normal Activity Call your doctor if you observe: Fever of 101 or Higher, Shortness of breath, Fainting spells and Chest pain Meaningful Use Info Meaningful Use Diagnoses (Choose all that apply): CHF CHF AKANKSHA/ARB ordered at discharge?: Yes Documented LVEF (%): 65 Discharge Plan Admission Admit Date/Time: 06/04/23 14:20 Attending Provider: Diana Bates Primary Care Provider: DALI RICE Consulting Providers: Sid Hillman Discharge Orders/Prescriptions Prescriptions: New potassium chloride 20 mEq Tablet,Er Particles/Crystals 20 meq PO DAILYCM Qty: 30 0RF guaifenesin [Mucus Relief ER] 1,200 mg Tablet Extended Release 12hr 1,200 mg PO BID Qty: 20 0RF prednisone 20 mg tablet 20 mg PO BID Qty: 14 0RF amoxicillin-pot clavulanate 875-125 mg tablet 1 tab PO BID Qty: 14 0RF Continued albuterol sulfate [ProAir HFA] 1 PUFF inhaler 2 puff inhalation Q4H PRN PRN (Reason: Sob &/Or Wheezing) nitroglycerin 0.4 MG tablet, sublingual 0.4 mg sublingual PRN PRN (Reason: CHEST PAIN) ondansetron 4 mg tablet,disintegrating 4 mg PO Q8H PRN PRN (Reason: Nausea) Qty: 14 0RF amitriptyline 100 mg tablet 100 mg PO QHS sumatriptan succinate 50 mg tablet 50 mg PO PRN PRN (Reason: migraine headache) meloxicam 7.5 mg tablet 7.5 mg PO DAILY Patient Comments: TAKE ONE TABLET BY MOUTH DAILY AT 9AM escitalopram oxalate 20 mg tablet 20 mg PO DAILY fluticasone propionate 50 mcg/actuation spray,suspension 2 spray INTRANASAL DAILY tizanidine 4 mg tablet 4 mg PO QHS PRN PRN (Reason: muscle spasm) atorvastatin 40 mg tablet 40 mg PO QHS buspirone 5 mg tablet 5 mg PO TID dexlansoprazole 60 mg capsule,biphase delayed releas 60 mg PO DAILY hydroxyzine HCl 50 mg tablet 50 mg PO TID PRN (Reason: Anxiety) pregabalin 25 mg capsule 25 mg PO BID acetaminophen 325 mg Tablet 1,000 mg PO Q8H PRN PRN (Reason: fever/pain 1-10) Qty: 0 0RF lisinopril 40 mg tablet 40 mg PO DAILY Changed furosemide 40 mg tablet 40 mg PO BIDCM Qty: 120 0RF Referrals / Follow Up: DALI RICE CARPET BINDER-C [Primary Care Provider] - Within 1 Week Disposition Disposition (needs filled in before D/C Order can be placed): Home, Self Care Charges/Coding Visit Charges Inpatient E&M: 73676 Disch Hosp >30min 06/06/23 1105 <Electronically signed by Diana Bates MD> Cosigner Signature (if applicable): CC: CARPET BINDER-C DALI RICE; Dr. Diana Bates MD~ Signed [facility] Work Phone: [phone] Progress note Author [facility] June 05, 2023 10:02pm Note Date/Time June 05, 2023 10:0 2pm [facility] Medical Records Department [address] [place] [address] Progress Note - Hospitalist 06/05/232201 MR#: [id number] Acct: [id number] Name: LEYDA LOPEZ Rep #:[id number] : 1960 62 From: Melissa Grady MD PCP: DALI RICE NP-C Status:ADM IN Location: [place] [address] Hospitalist Note Patient requesting transition back to Full Code status. Will change her status back to full code per patient request. 06/05/232201 <Electronically signed by Melissa Grady MD> Cosigner Signature (if applicable): CC: ~ Signed [facility] Work Phone: [phone] Progress note Author Diana Bates [facility] June 05, 2023 9:04am Note Date/Time June 05, 2023 8:55 am [facility] Medical Records Department [address] [place] [address] Progress Note - Hospitalist 06/05/23 0853 MR#: [id number] Acct: [id number] Name: LEYDA LOPEZ Rep #:[id number] : 1960 62 From: Diana Bates MD PCP: DALI RICE NP-C Status:ADM IN Location: [place] [address] Reason for Visit Reason for Visit: Diagnoses Pneumonia, unspecified organism (06/04/23) Acute and chronic respiratory failure with hypoxia (06/04/23) Subjective Subjective Patient is a 62-year-old lady with history of chronic hypoxic respiratory failure admitted with progressive shortness of breath. Objective Data Objective Data Vital Signs: Vital Signs Temp Pulse Resp BP Pulse Ox O2 Del Method O2 Flow Rate 96.4 F L 83 17 116/74 93 Nasal Cannula 4 06/05/23 03:30 06/05/23 07:08 06/05/23 07:08 06/05/23 03:30 06/05/23 08:08 06/05/23 08:10 06/05/23 08:10 FiO2 40 06/04/23 16:00 Oxygen Flow Rate (L/min) 4 Oxygen Delivery Method Nasal Cannula Weight: 58.7 kg Body Mass Index (BMI) 24.4 Intake & Output: Intake and Output for Last 24 Hours 06/03/23 06/04/23 06/05/23 23:59 23:59 23:59 Intake Total 2322.5 / 2322.5 270 / 270 Output Total 300 / 300 450 / 450 Balance 2021.5 / 2021.5 -180 / -180 Lab / Micro Data 06/05/23 06:00 06/05/23 06:00 Labs: Laboratory Results - last 24 hr 06/04/23 11:27: WBC 10.4, RBC 4.02 L, Hgb 11.8 L, Hct 38.3, MCV 95.3, MCH 29.4, MCHC 30.8 L, RDW Std Deviation 50.8 H, RDW Coeff of Alejandra 14.7 H, Plt Count 212, MPV 9.4, Immature Gran % (Auto) 0.700, Neut % (Auto) 77.2 H, Lymph % (Auto) 15.1L, [place] % (Auto) 4.7, Eos % (Auto) 1.8, Baso % (Auto) 0.5, Absolute Neuts (auto)8.0 H, Absolute Lymphs (auto) 1.56, Nucleated RBC % 0, PT 12.8, INR 1.0, APTT 24.7, Sodium 141, Potassium 4.3, Chloride 107, Carbon Dioxide 31.0, Anion Gap 3 L, BUN 14, Creatinine 0.90, Estim Creat Clear Calc 54.27, Est GFR (MDRD) Af Amer81, Est GFR (MDRD) Non-Af 67, BUN/Creatinine Ratio 15.5, Glucose 113 H, Calcium 8.5, Troponin I High Sens 17, B-Natriuretic Peptide 597.5 H 06/04/23 14:50: Lactic Acid 2.5 H* 06/04/23 17:35: Magnesium 1.7, Troponin I High Sens 22 06/04/23 18:40: Troponin I High Sens 22 06/04/23 19:10: Lactic Acid 6.0 H* 06/05/23 06:00: WBC 9.6, RBC 3.54 L, Hgb 10.7 L, Hct 33.2 L, MCV 93.8, MCH 30.2,MCHC 32.2, RDW Std Deviation 51.6 H, RDW Coeff of Alejandra 15.0 H, Plt Count 226, MPV9.6, Immature Gran % (Auto) 0.400, Neut % (Auto) 74.4 H, Lymph % (Auto) 16.1 L, [place] % (Auto) 8.4, Eos % (Auto) 0.5, Baso % (Auto) 0.2, Absolute Neuts (auto) 7.1, Absolute Lymphs (auto) 1.54, Nucleated RBC % 0, Sodium 139, Potassium 4.2, Chloride 102, Carbon Dioxide 31.0, Anion Gap 6, BUN 23 H, Creatinine 1.00, EstimCreat Clear Calc 48.03, Est GFR (MDRD) Af Amer 72, Est GFR (MDRD) Non-Af 60, BUN/Creatinine Ratio 23.0 H, Glucose 95, Calcium 8.6 Micro: Microbiology 06/04/23 20:20 Urine Catheter - Byrne Legionella Antigen - Final 06/04/23 20:20 Urine Catheter - Byrne Streptococcus pneumoniae Antigen (M - Final 06/04/23 11:30 Mucosa - Nose SARS-CoV-2, Influenza & RSV (PCR) - Final ABG Data ABG results: ABG 06/04/23 13:07 Specimen Type ART Sample Site R Brach pH 7.40 Bicarbonate Actual 28.7 H Total CO2 30 Base Excess 4 H O2 Saturation 84 L O2 % 3.0 ABG pCO2 46.5 H ABG pO2 50 L Carrie Test Positive O2 Delivery Device Cannula Vent Mode Not entered Radiography Diagnostic Testing: Radiology Impression Chest X-Ray 06/04/23 12:00 IMPRESSION: Progressive bibasilar pulmonary infiltrates worse on the right side with a small right pleural effusion. Mild degree of vascular congestion and CHF. Electronically Signed: Bebeto Mariscal MD at 12:48 EDT , Physical Exam Narrative GENERAL: cooperative HEENT: Atraumatic; normocephalic EYES; Anicteric, Normal Conjunctiva NECK; supple, normal thyroid, RESPIRATORY: Diminished to auscultation CARDIOVASCULAR: Regular S1 S2, GI: soft, normoactive bowel sounds, : No Renal angle tenderness; EXTREMITIES: No edema, no clubbing, MUSCULOSKELETAL: no muscle wasting NEURO: Awake; no lateralizing signs. SKIN: No Rash PSYCH; Flat affect Assessment & Plan Assessment/Plan (1) Acute and chronic respiratory failure with hypoxia: (2) Pneumonia: PLAN: Plan Patient is a 62-year-old lady with history of chronic hypoxic respiratory failure admitted with progressive shortness of breath. 1. Acute hypoxia ? Superimposed on chronic hypoxic respite failure due to combination of pneumonia and congestive heart failure. Admitted to a monitored bed for subsequent management 2. Acute on chronic congestive heart failure with preserved ejection fraction ? Echo from 2018 demonstrated EF of 55%. Patient admitted to monitored bed managed with strict input and output, daily weight, low-sodium diet fluid restriction as well as IV Lasix repeat echo ordered for reevaluation of her ejection fraction 3. Bibasilar pneumonia ? Patient is on broad antibiotic therapy with Zosyn in addition to supplemental oxygen as well as aerosol treatments as needed 4. Lactic acidosis ? Attributed to increased work of breathing 5. Bipolar disorder ? Patient is on multiple psychotropic medications with continued 6. Tardive dyskinesia ? Probably side effect of patient psychotropic medications 7. Chronic hypoxic respiratory failure Secondary to COPD patient is on baseline oxygen 3 L flow per minute 8. Hypertension - Blood pressure controlled, home medications continued with dose adjustment as needed 9. Fibromyalgia?continue home meds 10. Dyslipidemia -Patient is on statin therapy, continued at home dose 11. Tobacco dependence - Counseled on cessation, offered nicotine patch for tobacco cravings Time spent in the patient's overall evaluation,decision-making process, review of diagnostic data, adjustment of management, discussion with other providers, nursing nursing and ancillary staff involved in patient's care documentation, 52Minutes. Charges/Coding Visit Charges Inpatient E&M: 22929 Subs Hosp L3 06/05/23 0904 <Electronically signed by Diana Bates MD> Cosigner Signature (if applicable): CC: ~ Signed [facility] Work Phone: [phone] History and physical note Author Sid Hillman [facility] June 04, 2023 9:28pm Note Date/Time June 04, 2023 2:28 pm [facility] Medical Records Department [address] [place] [address] H&P Exam - Hospitalist 06/04/23 1425 MR#: [id number] Acct: [id number] Name: LEYDA LOPEZ Rep #:[id number] : 1960 62 From: Sid Rivera PCP: DALI RICE, CARPET BINDER-C Status:ADM IN Location: [address] HPI - General General Date of Admission: 06/04/23 Date of Service: 06/04/23 Chief Complaint: Sudden onset of shortness of breath since last night. HPI Narrative LEYDA LOPEZ, is a 62 F who was recently admitted from 05/11/2023 to 05/20/2023 for pneumonia and hypoxia came to ED with sudden onset of shortness ofbreath last night and when she woke up today. She said she gets short of breathon exertion but was otherwise doing good on 3 L of oxygen which she was discharged last time. As per EMS she was dyspneic/trouble breathing and was puton nonrebreather, capnography ETCO2 41 and brought to ED. EMS vitals for blood pressure high 196/126 heart rate 110/min. In ED, patient was hypoxic and tachypneic therefore put on BiPAP but not able totolerate therefore on high flow oxygen. ABG was done. Twelve-lead EKG and chest x-ray was done and patient was given antibiotic after blood culture. Patient WAS started on ceftriaxone and azithromycin. [facility] Medical History Bipolar 1 disorder COPD (chronic obstructive pulmonary disease) COPD (chronic obstructive pulmonary disease) Fibromyalgia Hypertension NSTEMI (non-ST elevated myocardial infarction) Rheumatoid arthritis Home Medications albuterol sulfate 90 mcg/actuation aerosol inhaler (ProAir HFA) 2 puff inhalation Q4H PRN PRN Sob &/Or Wheezing 07/26/14 [History Last Taken 06/06/17] nitroglycerin 0.4 mg sublingual tablet 0.4 mg sublingual PRN PRN CHEST PAIN 06/04/17 [History Last Taken Unknown] amitriptyline 100 mg tablet 100 mg PO QHS depresssion 10/10/22 [History Last Taken Unknown] meloxicam 7.5 mg tablet 7.5 mg PO DAILY pain 10/10/22 [History Last Taken Unknown] sumatriptan succinate 50 mg tablet 50 mg PO PRN PRN migraine headache 10/10/22 [History Last Taken Unknown] ondansetron 4 mg disintegrating tablet 4 mg PO Q8H PRN PRN Nausea #14 tabs 11/14/22 [Rx Last Taken Unknown] atorvastatin 40 mg tablet 40 mg PO QHS Cholesterol 05/11/23 [History Last Taken Unknown] buspirone 5 mg tablet 5 mg PO TID Anxiety 05/11/23 [History Last Taken Unknown] dexlansoprazole 60 mg capsule,biphase delayed release 60 mg PO DAILY GERD 05/11/23 [History Last Taken Unknown] escitalopram oxalate 20 mg tablet 20 mg PO DAILY depression 05/11/23 [History Last Taken Unknown] fluticasone propionate 50 mcg/actuation nasal spray,suspension 2 spray intranasal DAILY allergies 05/11/23 [History Last Taken Unknown] furosemide 40 mg tablet 40 mg PO DAILY water pill 05/11/23 [History Last Taken Unknown] hydroxyzine HCl 50 mg tablet 50 mg PO TID PRN Anxiety 05/11/23 [History Last Taken Unknown] pregabalin 25 mg capsule 25 mg PO BID Nerve pain 05/11/23 [History Last Taken Unknown] tizanidine 4 mg tablet 4 mg PO QHS PRN PRN muscle spasm 05/11/23 [History Last Taken Unknown] acetaminophen 325 mg tablet 1,000 mg (3.0769 x 325 mg) PO Q8H PRN PRN fever/pain1-10 #0 tabs 05/20/23 [Rx Last Taken Unknown] lisinopril 40 mg tablet 40 mg PO DAILY 06/04/23 [History Last Taken Unknown] Allergy/AdvReac Type Severity Reaction Status Date / Time methotrexate Allergy Other Verified 05/11/23 11:21 nadolol Allergy Unknown Verified 05/11/23 11:21 prochlorperazine Allergy PT UNABLE Verified 05/11/23 11:21 TO RESPOND-NEEDS F/U baclofen AdvReac Other Verified 05/11/23 11:21 lorazepam [From Ativan] AdvReac Nausea Verified 11/14/22 10:49 propranolol AdvReac Other Verified 05/11/23 11:21 Social History Smoking Status: Former smoker ROS ROS Narrative Constitutional: Reports fatigue and weakness. No fever. HEENT: Reports systems reviewed and no addt'l complaints, except as documented Respiratory/Chest: Former smoker. COPD. Hypoxia since last admission on 3 L ofoxygen. CVS: Sudden onset of shortness of breath. No chest pain pressure or tightness. History of minor heart attack 7 years ago Gastrointestinal: Denies coffee ground emesis, hematemesis or vomiting Genitourinary: Denies burning urination or new urinary tract symptoms Musculoskeletal: Denies acute joint pain or limited range of motion. No acute injury Neurologic: Denies seizure-like symptoms. skin: No ulcer. No rash Endocrinology: Reports systems reviewed and no addt'l complaints, except as documented Hematologic/Lymphatic: Reports systems reviewed and no addt'l complaints, exceptas documented Rest 14 ROS are negative except as mentioned in HPI Vital Signs Vital Signs Vital Signs: 06/04/23 11:14 06/04/23 11:18 06/04/23 11:25 Temperature 97.3 F L Temperature Source Temporal Pulse Rate 94 Respiratory Rate 23 H Respiratory Effort Short of Breath Labored Accessory Muscle Use Nasal Flaring Respiratory Depth Deep Respiratory Pattern Tachypnea Blood Pressure 161/119 H Blood Pressure Mean 133 Pulse Ox 93 Oxygen Delivery Method Nasal Cannula Nasal Cannula Bi-pap Oxygen Flow Rate (L/min) 3 3 Fraction of Inspired Oxygen (FIO2) 06/04/23 11:20 06/04/23 11:20 06/04/23 12:00 Temperature 97.6 F L Temperature Source Temporal Pulse Rate 91 88 83 Respiratory Rate 26 H 24 H 17 Respiratory Effort Respiratory Depth Respiratory Pattern Blood Pressure 174/100 H Blood Pressure Mean 124 Pulse Ox 94 93 Oxygen Delivery Method Bi-pap Oxygen Flow Rate (L/min) Fraction of Inspired Oxygen (FIO2) 35 06/04/23 12:30 06/04/23 13:00 06/04/23 13:08 Temperature 97.8 F Temperature Source Temporal Pulse Rate 84 83 Respiratory Rate 20 H 19 H Respiratory Effort Respiratory Depth Respiratory Pattern Blood Pressure 174/100 H Blood Pressure Mean 124 Pulse Ox 94 93 Oxygen Delivery Method Nasal Cannula Nasal Cannula Oxygen Flow Rate (L/min) 4 3 Fraction of Inspired Oxygen (FIO2) 06/04/23 13:59 06/04/23 14:00 Temperature 97.4 F L 98 F Temperature Source Temporal Pulse Rate 82 89 Respiratory Rate 17 16 Respiratory Effort Respiratory Depth Respiratory Pattern Blood Pressure 170/106 H 176/117 H Blood Pressure Mean 127 136 Pulse Ox 94 93 Oxygen Delivery Method Nasal Cannula Oxygen Flow Rate (L/min) 4 Fraction of Inspired Oxygen (FIO2) Weight Weight: 134 lb 4.184 oz Body Mass Index (BMI) 25.3 Physical Exam Narrative General: Alert, Oriented x3, Cooperative HEENT: Atraumatic, PERRLA, EOMI, Normocephalic Oral: No Gingival or Mucosal Lesions/ Ulcerations Neck: Supple, No JVD, Negative Carotid Bruits Chest wall/Lungs: Air entry diminished in bilateral lung bases. No crepitation/rhonchi Cardiovascular: Regular rate, Regular Rhythm, Normal S1, Normal S2, systolic murmur present on LLSB Abdomen: Bowel Sounds Present, Soft, Non Tender, Non-Distended : No dysuria. No renal angle tenderness. No suprapubic tenderness. Extremities: No edema, Capillary Refill Less than 3 Seconds Skin: No rashes, No breakdown Musculoskeletal: No Tenderness to Palpation of Joints or Extremities. ROM restricted. 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 Neurological: Cranial nerves II-XII grossly intact, DTR 2+/4. No acute focal neurological deficit. Psych/Mental Status: Flat affect. Sad, easily crying. Results Lab / Micro Data 06/04/23 11:27 06/04/23 11:27 Labs: Laboratory Results - last 24 hr 06/04/23 11:27: WBC 10.4, RBC 4.02 L, Hgb 11.8 L, Hct 38.3, MCV 95.3, MCH 29.4, MCHC 30.8 L, RDW Std Deviation 50.8 H, RDW Coeff of Alejandra 14.7 H, Plt Count 212, MPV 9.4, Immature Gran % (Auto) 0.700, Neut % (Auto) 77.2 H, Lymph % (Auto) 15.1L, [place] % (Auto) 4.7, Eos % (Auto) 1.8, Baso % (Auto) 0.5, Absolute Neuts (auto)8.0 H, Absolute Lymphs (auto) 1.56, Nucleated RBC % 0, PT 12.8, INR 1.0, APTT 24.7, Sodium 141, Potassium 4.3, Chloride 107, Carbon Dioxide 31.0, Anion Gap 3 L, BUN 14, Creatinine 0.90, Estim Creat Clear Calc 54.27, Est GFR (MDRD) Af Amer81, Est GFR (MDRD) Non-Af 67, BUN/Creatinine Ratio 15.5, Glucose 113 H, Calcium 8.5, Troponin I High Sens 17 Micro: Microbiology 06/04/23 11:30 Mucosa - Nose SARS-CoV-2, Influenza & RSV (PCR) - Final ABG Data ABG results: ABG 06/04/23 13:07 Specimen Type ART Sample Site R Brach pH 7.40 Bicarbonate Actual 28.7 H Total CO2 30 Base Excess 4 H O2 Saturation 84 L O2 % 3.0 ABG pCO2 46.5 H ABG pO2 50 L Carrie Test Positive O2 Delivery Device Cannula Vent Mode Not entered Imaging Radiology Impression Chest X-Ray 06/04/23 12:00 IMPRESSION: Progressive bibasilar pulmonary infiltrates worse on the right side with a small right pleural effusion. Mild degree of vascular congestion and CHF. Electronically Signed: Bebeto Mariscal MD at 12:48 EDT Reading Location ID and State: [facility] / [place] , Service support , Assessment & Plan Assessment/Plan (1) Acute and chronic respiratory failure with hypoxia: (2) Pneumonia: PLAN: Plan This 62-year-old female admitted for sudden onset of shortness of breath when she woke up in the morning today. 1. Acute on chronic hypoxic respiratory failure: Patient is being admitted in PCU. ABG done in ED shows 7.4/46.5/50/30 on 3 L of oxygen. Patient was put on high flow oxygen. Chest x-ray initially reviewed and shows bibasilar pulmonary infiltrate with worse on right side with small right pleural effusion but seems retrocardiac/lingular infiltrate and mild vascular congestion. 2. Bibasilar pneumonia: Patient was treated with antibiotic during previous visit. MRSA nasal screen was negative and ID was consulted. Pneumonia workup ordered. Lactic acid 2.5 but patient not having any hypotension probably from hypoxia or CHF/hypoperfusion. 3. Clinical suspicion of heart failure exacerbation: Chest x-ray shows vascularcongestion/CHF. BNP elevated.Twelve-lead EKG shows T inversions in in V1 to V5 with normal sinus rhythm 84 beats per 100. DN versus not present last time. QTc 422 ms. First troponin normal. Lasix 40 mg IV 1 dose ordered. Serial troponins ordered. Last echo in June 2017 as mentioned below. Continue Lasix 40 mg IV every 12 hourly as tolerated by hemodynamics plans for Interpretation Summary Normal LV size. Left ventricular systolic function is normal. The estimated ejection fraction is 55 %. The left atrium is moderately enlarged. Moderate (2+) eccentric mitral valve insufficiency. Pulmonary artery systolic pressure is 39 mmHg. Compared to prior study, there is no significant change. 4. Bipolar disorder, anxiety and multiple medications.: Continue Lexapro 05/14: The patient looked very anxious and restless. Resume home medication buspirone 5 mg, 3 times daily. On Hydroxyzine 25 mg tid prn, lyrixa 25 mg tid for neuropathic pain in hands 5. Fibromyalgia: Continue home pain medications including Zanaflex and hydrocodone: 6. Hypertension: Blood pressure is very high. Hold lisinopril and Lasix IV. Monitor BP and adjust the medications accordingly. 7. COPD: Patient has history of smoking 18 to 25 years of age, 1 pack/day. Patient already quit. Patient is being managed on scheduled bronchodilator, maintenance inhaler, Mucinex, incentive spirometry and Pep. 8. DVT prophylaxis: On enoxaparin 40 mg daily. Discontinue if platelet count drops less than 50,000 or hemoglobin less than 8 g% Living will/advanced directive/end of life care: Patient does have living will or advanced directive. After discussion of benefits/risks procedures involved with full code, DNR CC arrest and DNR CC, the patient opted for DNR CC arrest with no intubation. Patient doesn't want artificial life support including intubation, tube feed, ventilator and/chest compression, central venous catheter, vasopressor and DC shock if needed Total time spent in [id number] encounter in discussion of advanced directive 17 minutes. Microbiology Past 72 Hours 06/04/23 11:30 Mucosa - Nose SARS-CoV-2, Influenza & RSV (PCR) - Final Laboratory Results 06/04/23 11:27: WBC 10.4, RBC 4.02 L, Hgb 11.8 L, Hct 38.3, MCV 95.3, MCH 29.4, MCHC 30.8 L, RDW Std Deviation 50.8 H, RDW Coeff of Alejandra 14.7 H, Plt Count 212, MPV 9.4, Immature Gran % (Auto) 0.700, Neut % (Auto) 77.2 H, Lymph % (Auto) 15.1L, [place] % (Auto) 4.7, Eos % (Auto) 1.8, Baso % (Auto) 0.5, Absolute Neuts (auto)8.0 H, Absolute Lymphs (auto) 1.56, Nucleated RBC % 0, PT 12.8, INR 1.0, APTT 24.7, Sodium 141, Potassium 4.3, Chloride 107, Carbon Dioxide 31.0, Anion Gap 3 L, BUN 14, Creatinine 0.90, Estim Creat Clear Calc 54.27, Est GFR (MDRD) Af Amer 81, Est GFR (MDRD) Non-Af 67, BUN/Creatinine Ratio 15.5, Glucose 113 H, Calcium 8.5, Troponin I High Sens 17. B-Natriuretic Peptide 597.5 H 06/04/23 13:07: Specimen Type ART, Sample Site R Brach, pH 7.40, Bicarbonate Actual 28.7 H, Total CO2 30, Base Excess 4 H, O2 Saturation 84 L, O2 % 3.0, ABG pCO2 46.5 H, ABG pO2 50 L, Carrie Test Positive, O2 Delivery Device Cannula, VentMode Not entered 06/04/23 14:50: Lactic Acid 2.5 H* Clinical Impression(s) from Imaging Studies Chest X-Ray 06/04/23 12:00 IMPRESSION: Progressive bibasilar pulmonary infiltrates worse on the right side with a small right pleural effusion. Mild degree of vascular congestion and CHF. Electronically Signed: Bebeto Mariscal MD at 12:48 EDT , Charges/Coding Visit Charges Inpatient E&M: 65283 Init Hosp L3 Procedures Hospitalists Procedures: 31478 Advncd Care Plan 30 Min 06/04/23 160 <Electronically signed by Sid Hillman MD> Cosigner Signature (if applicable): CC: SHMUEL RICE; Dr. Sid Hillman MD~ Signed ADDENDUM by Dr. Sid Hillman MD on 06/04/23 at 1608 Addendum Abnormal EKG: Twelve-lead EKG shows T inversions in in V1 to V5 with normal sinus rhythm 84 beats QTc 422 ms. Last EKG shows sinus tach at 110 bpm with upright T waves. Patient does not have chest pain pressure or tightness. First troponin normal. Serial troponins ordered. 06/04/231607<Electronically signed by Sid Hillman MD> Cosigner Signature (if applicable): cc: SHMUEL RICE; Dr. Sid Hillman MD ~* Signed ADDENDUM by Dr. Sid Hillman MD on 06/04/23 at 2127 Addendum Patient has elevated lactic acid which may be due to hypoxia or decreased effective Platinol blood flow from CHF exacerbation but otherwise does not show any other signs and symptoms of sepsis. Sepsis clinically ruled out 06/04/232126<Electronically signed by Sid Hillman MD> Cosigner Signature (if applicable): cc: SHMUEL RICE; Dr. Sid Hillman MD ~* Signed [facility] Work Phone: [phone]) 485-644704-02-2024 Discharge summary Author Zurdo Howard [facility] June 04, 2023 4:50pm Note Date/Time June 04, 2023 11:3 2am [facility] Medical Records Department [address] [place] [address] Emergency Department Summary 06/04/23 MR#: [id number] Acct: [id number] Name: LEYDA LOPEZ Rep #:[id number] : 1960 62 From: Zurdo Snider PCP: SHMUEL PAGAN Status:ADM IN Location: [place] [address] HPI History of Present Illness Chief Complaint: Shortness of Breath Informant: patient and EMS Narrative Narrative: 62-year-old female states she was just admitted to the hospital with pneumonia. She states she was discharged home on a strong antibiotic. From what I can seeshe was discharged home on Augmentin. She states she has been doing well and when she woke this morning to use the bathroom around 0830 hrs. she noted she was significantly short of breath. Patient states she cannot seem to take a breath. She does wear home oxygen. She denies any fevers. She continues to have cough. She is unsure if she was on any steroids. The patient also notes aheadache and would like something for that. I reviewed the patient's discharge summary and pulmonary consult note. It appears that the patient was being treated for gram-negative pneumonia that was complicated with RSV. [facility] Medical History Bipolar 1 disorder COPD (chronic obstructive pulmonary disease) COPD (chronic obstructive pulmonary disease) Fibromyalgia Hypertension NSTEMI (non-ST elevated myocardial infarction) Rheumatoid arthritis Home Medications albuterol sulfate 90 mcg/actuation aerosol inhaler (ProAir HFA) 2 puff inhalation Q4H PRN PRN Sob &/Or Wheezing 07/26/14 [History Last Taken 06/06/17] nitroglycerin 0.4 mg sublingual tablet 0.4 mg sublingual PRN PRN CHEST PAIN 06/04/17 [History Last Taken Unknown] hyoscyamine sulfate 0.125 mg sublingual tablet 0.125 mg sublingual Q8H PRN dyspepsia 10/09/22 [History Last Taken Unknown] amitriptyline 100 mg tablet 100 mg PO QHS depresssion 10/10/22 [History Last Taken Unknown] hydroxyzine HCl 25 mg tablet 50 mg PO Q8H PRN anxiety 10/10/22 [History Last Taken Unknown] meloxicam 7.5 mg tablet 7.5 mg PO DAILY pain 10/10/22 [History Last Taken Unknown] pregabalin 200 mg capsule 200 mg PO Q8H 10/10/22 [History Last Taken Unknown] sumatriptan succinate 50 mg tablet 50 mg PO PRN PRN migraine headache 10/10/22 [History Last Taken Unknown] ondansetron 4 mg disintegrating tablet 4 mg PO Q8H PRN PRN Nausea #14 tabs 11/14/22 [Rx Last Taken Unknown] atorvastatin 40 mg tablet 40 mg PO QHS Cholesterol 05/11/23 [History Last Taken Unknown] buspirone 5 mg tablet 5 mg PO TID Anxiety 05/11/23 [History Last Taken Unknown] dexlansoprazole 60 mg capsule,biphase delayed release 60 mg PO DAILY GERD 05/11/23 [History Last Taken Unknown] escitalopram oxalate 20 mg tablet 20 mg PO DAILY depression 05/11/23 [History Last Taken Unknown] fluticasone propionate 50 mcg/actuation nasal spray,suspension 2 spray intranasal DAILY allergies 05/11/23 [History Last Taken Unknown] furosemide 40 mg tablet 40 mg PO DAILY water pill 05/11/23 [History Last Taken Unknown] hydroxyzine HCl 50 mg tablet 50 mg PO TID Anxiety 05/11/23 [History Last Taken Unknown] pregabalin 25 mg capsule 25 mg PO BID Nerve pain 05/11/23 [History Last Taken Unknown] tizanidine 4 mg tablet 4 mg PO QHS PRN PRN muscle spasm 05/11/23 [History Last Taken Unknown] acetaminophen 325 mg tablet 1,000 mg (3.0769 x 325 mg) PO Q8H PRN PRN fever/pain1-10 #0 tabs 05/20/23 [Rx Last Taken Unknown] amoxicillin 875 mg-potassium clavulanate 125 mg tablet 1 tab PO BID #4 tabs 05/20/23 [Rx Last Taken Unknown] dextromethorphan-guaifenesin 30 mg-600 mg tablet extended hr (Mucinex DM) 2 tab PO BID #14 tabs 05/20/23 [Rx Last Taken Unknown] Allergy/AdvReac Type Severity Reaction Status Date / Time methotrexate Allergy Other Verified 05/11/23 11:21 nadolol Allergy Unknown Verified 05/11/23 11:21 prochlorperazine Allergy PT UNABLE Verified 05/11/23 11:21 TO RESPOND-NEEDS F/U baclofen AdvReac Other Verified 05/11/23 11:21 lorazepam [From Ativan] AdvReac Nausea Verified 11/14/22 10:49 propranolol AdvReac Other Verified 05/11/23 11:21 Social History Smoking Status: Former smoker ROS ROS ED Constitutional Constitutional ED: Denies chills, fever(s) or weight loss Eyes Eyes: Denies change in vision or diplopia ENT ENT ED: Denies ear pain, rhinorrhea or sore throat Cardiovascular Cardiovascular: Denies chest pain, orthopnea, palpitations or racing heartbeat Respiratory/Chest Respiratory/Chest: Reports cough, dyspnea and dyspnea on exertion; Denies orthopnea Gastrointestinal Gastrointestinal: Denies abdominal pain, diarrhea, nausea or vomiting Genitourinary Genitourinary ED: Denies dysuria, hematuria or urinary frequency Musculoskeletal Musculoskeletal: Denies arthralgias or myalgias Integumentary Denies abscess or rash Neurologic Neurologic: Reports headache(s); Denies weakness Psychiatric Psychiatric: Denies anxiety, depression, suicidal ideation or suicidal thoughts Endocrine Endocrinology: Denies polydipsia, polyphagia or polyuria Allergic/Immunologic Allergic/Immunologic ED: Denies mouth swelling, tongue swelling or urticaria EXAM Physical Exam Narrative Exam Narrative: Patient is presenting with moderate respiratory distress. Const Vital Signs: 06/04/23 11:14 06/04/23 11:18 06/04/23 11:25 Temperature 97.3 F L Temperature Source Temporal Pulse Rate 94 Respiratory Rate 23 H Respiratory Effort Short of Breath Labored Accessory Muscle Use Nasal Flaring Respiratory Depth Deep Respiratory Pattern Tachypnea Blood Pressure 161/119 H Blood Pressure Mean 133 Pulse Ox 93 Oxygen Delivery Method Nasal Cannula Nasal Cannula Bi-pap Oxygen Flow Rate (L/min) 3 3 Fraction of Inspired Oxygen (FIO2) 06/04/23 11:20 06/04/23 11:20 06/04/23 12:00 Temperature 97.6 F L Temperature Source Temporal Pulse Rate 91 88 83 Respiratory Rate 26 H 24 H 17 Respiratory Effort Respiratory Depth Respiratory Pattern Blood Pressure 174/100 H Blood Pressure Mean 124 Pulse Ox 94 93 Oxygen Delivery Method Bi-pap Oxygen Flow Rate (L/min) Fraction of Inspired Oxygen (FIO2) 35 06/04/23 12:30 06/04/23 13:00 06/04/23 13:08 Temperature 97.8 F Temperature Source Temporal Pulse Rate 84 83 Respiratory Rate 20 H 19 H Respiratory Effort Respiratory Depth Respiratory Pattern Blood Pressure 174/100 H Blood Pressure Mean 124 Pulse Ox 94 93 Oxygen Delivery Method Nasal Cannula Nasal Cannula Oxygen Flow Rate (L/min) 4 3 Fraction of Inspired Oxygen (FIO2) Positive well nourished and well developed General Appearance ED: well developed HEENT Reports normocephalic, head/scalp atraumatic and moist mucous membranes Eyes PERRL and EOMs intact bilaterally Neck no lymphadenopathy, supple and no JVD Resp Resp Narrative: Bilateral chest dated. Increased respiratory rate and accessory muscle use. Diminished breath sounds bilaterally with faint expiratory wheezes. Auscultation: wheezes expiratory wheezes and diminished lung sounds Cardio regular rate, regular rhythm and no murmurs GI normal to inspection, nondistended, normoactive bowel sounds and non-tender Palpation: soft Back/Spine no CVA tenderness and normal ROM Extremity normal to inspection General Extremety ED: Negative for edema General Extremity: Negative for edema Neuro oriented x3 and CN's II-XII intact bilaterally Sensorium / Orientation: alert Motor Exam: strength 5/5 throughout Psych mental status grossly normal Mood & Affect: Negative for depressed or tearful Skin no rashes or lesions noted and no wounds MDM MDM MDM Narrative Medical decision making narrative: My independent interpretation of the chest x-ray is progression of the infiltrates now more pronounced in the lingula of the left lung as well as the right lung tobias.. Pleural effusion continued noted right lung base. White count returns at 10.4 hemoglobin 11.8 platelet count of 212. Troponin is 17 glucose 113 creatinine 0.90. The patient EKG is a normal sinus rhythm at a rate of 84. The anterior T wave inversion is new. Difficult to define this at this time in light of a normal troponin and lack of chest pain. An ABG was obtained shows a pH of 7.4 pO2 49.5 pCO2 46.5. HCO3 28.7. COVID influenza and RSV testing is negative. Patient did not tolerate BiPAP. She was placed on high flow nasal cannula. Shereceived Rocephin and azithromycin. I also administered breathing treatments and some Solu-Medrol. I do question as to whether or not mucous plugging is playing a role in this patient. Respiratory has been working with her. Plan will be admission into the hospital. History & Record Review Discussion w/independent historian: Patient Additional record(s) reviewed:: Prior inpatient record, Prior outpatient record,Prior ED visit and Prior labs Lab Data Attestation: I reviewed the patient's lab results. Labs: Laboratory Results - last 24 hr 06/04/23 11:27 WBC 10.4 RBC 4.02 L Hgb 11.8 L Hct 38.3 MCV 95.3 MCH 29.4 MCHC 30.8 L RDW Std Deviation 50.8 H RDW Coeff of Alejandra 14.7 H Plt Count 212 MPV 9.4 Immature Gran % (Auto) 0.700 Neut % (Auto) 77.2 H Lymph % (Auto) 15.1 L [place] % (Auto) 4.7 Eos % (Auto) 1.8 Baso % (Auto) 0.5 Absolute Neuts (auto) 8.0 H Absolute Lymphs (auto) 1.56 Nucleated RBC % 0 PT 12.8 INR 1.0 APTT 24.7 Sodium 141 Potassium 4.3 Chloride 107 Carbon Dioxide 31.0 Anion Gap 3 L BUN 14 Creatinine 0.90 Estim Creat Clear Calc 54.27 Est GFR (MDRD) Af Amer 81 Est GFR (MDRD) Non-Af 67 BUN/Creatinine Ratio 15.5 Glucose 113 H Calcium 8.5 Troponin I High Sens 17 ABG Data ABG results: ABG 06/04/23 13:07 Specimen Type ART Sample Site R Brach pH 7.40 Bicarbonate Actual 28.7 H Total CO2 30 Base Excess 4 H O2 Saturation 84 L O2 % 3.0 ABG pCO2 46.5 H ABG pO2 50 L Carrie Test Positive O2 Delivery Device Cannula Vent Mode Not entered Radiography Diagnostic Testing: Clinical Impression(s) from Imaging Studies Chest X-Ray 06/04/23 12:00 IMPRESSION: Progressive bibasilar pulmonary infiltrates worse on the right side with a small right pleural effusion. Mild degree of vascular congestion and CHF. Electronically Signed: Bebeto Mariscal MD at 12:48 EDT , EKG Initial EKG: Attestation: I personally reviewed and interpreted this EKG as follows: Comments: Normal sinus rhythm ventricular rate of 84 bpm. There is inversion of T waves across the anterior leads that is new from EKG dated 11 May 2023. Prior EKG tracings: available for review Prior: Changed Discharge Plan Dx/Rx/DC Orders Clinical Impression: COPD (chronic obstructive pulmonary disease), HTN (hypertension), Pneumonia, Acute and chronic respiratory failure with hypoxia Disposition Disposition: Acute Care Hospital [facility] What to do if you have Problems For any increased pain, shortness of breath, bleeding, nausea or vomiting, chestpain, or any unexpected problems, contact your Primary Care Provider. Call [facility] ([phone]) or report to the closest Emergency Room. Call 911 if necessary. 06/04/23 1650 <Electronically signed by Zurdo Howard DO> Cosigner Signature (if applicable): CC: CARPET BINDER-C DALI RICE ~ Signed [facility] Work Phone: [phone]) 828-455904-02-2024 History and physical note Author Sid Hillman [facility] June 04, 2023 4:08pm Note Date/Time June 04, 2023 2:28 pm [facility] Medical Records Department [address] [facility] [place] [address] H&P Exam - Hospitalist 06/04/23 1425 MR#: [id number] Acct: [id number] Name: LEYDA LOPEZ Rep #:[id number] : 1960 62 From: Sid Rivera PCP: SHMUEL PAGAN Status:ADM IN Location: [place] [address] HPI - General General Date of Admission: 06/04/23 Date of Service: 06/04/23 Chief Complaint: Sudden onset of shortness of breath since last night. HPI Narrative LEYDA LOPEZ, is a 62 F who was recently admitted from 05/11/2023 to 05/20/2023 for pneumonia and hypoxia came to ED with sudden onset of shortness ofbreath last night and when she woke up today. She said she gets short of breathon exertion but was otherwise doing good on 3 L of oxygen which she was discharged last time. As per EMS she was dyspneic/trouble breathing and was puton nonrebreather, capnography ETCO2 41 and brought to ED. EMS vitals for blood pressure high 196/126 heart rate 110/min. In ED, patient was hypoxic and tachypneic therefore put on BiPAP but not able totolerate therefore on high flow oxygen. ABG was done. Twelve-lead EKG and chest x-ray was done and patient was given antibiotic after blood culture. Patient WAS started on ceftriaxone and azithromycin. [facility] Medical History Bipolar 1 disorder COPD (chronic obstructive pulmonary disease) COPD (chronic obstructive pulmonary disease) Fibromyalgia Hypertension NSTEMI (non-ST elevated myocardial infarction) Rheumatoid arthritis Home Medications albuterol sulfate 90 mcg/actuation aerosol inhaler (ProAir HFA) 2 puff inhalation Q4H PRN PRN Sob &/Or Wheezing 07/26/14 [History Last Taken 06/06/17] nitroglycerin 0.4 mg sublingual tablet 0.4 mg sublingual PRN PRN CHEST PAIN 06/04/17 [History Last Taken Unknown] amitriptyline 100 mg tablet 100 mg PO QHS depresssion 10/10/22 [History Last Taken Unknown] meloxicam 7.5 mg tablet 7.5 mg PO DAILY pain 10/10/22 [History Last Taken Unknown] sumatriptan succinate 50 mg tablet 50 mg PO PRN PRN migraine headache 10/10/22 [History Last Taken Unknown] ondansetron 4 mg disintegrating tablet 4 mg PO Q8H PRN PRN Nausea #14 tabs 11/14/22 [Rx Last Taken Unknown] atorvastatin 40 mg tablet 40 mg PO QHS Cholesterol 05/11/23 [History Last Taken Unknown] buspirone 5 mg tablet 5 mg PO TID Anxiety 05/11/23 [History Last Taken Unknown] dexlansoprazole 60 mg capsule,biphase delayed release 60 mg PO DAILY GERD 05/11/23 [History Last Taken Unknown] escitalopram oxalate 20 mg tablet 20 mg PO DAILY depression 05/11/23 [History Last Taken Unknown] fluticasone propionate 50 mcg/actuation nasal spray,suspension 2 spray intranasal DAILY allergies 05/11/23 [History Last Taken Unknown] furosemide 40 mg tablet 40 mg PO DAILY water pill 05/11/23 [History Last Taken Unknown] hydroxyzine HCl 50 mg tablet 50 mg PO TID PRN Anxiety 05/11/23 [History Last Taken Unknown] pregabalin 25 mg capsule 25 mg PO BID Nerve pain 05/11/23 [History Last Taken Unknown] tizanidine 4 mg tablet 4 mg PO QHS PRN PRN muscle spasm 05/11/23 [History Last Taken Unknown] acetaminophen 325 mg tablet 1,000 mg (3.0769 x 325 mg) PO Q8H PRN PRN fever/pain1-10 #0 tabs 05/20/23 [Rx Last Taken Unknown] lisinopril 40 mg tablet 40 mg PO DAILY 06/04/23 [History Last Taken Unknown] Allergy/AdvReac Type Severity Reaction Status Date / Time methotrexate Allergy Other Verified 05/11/23 11:21 nadolol Allergy Unknown Verified 05/11/23 11:21 prochlorperazine Allergy PT UNABLE Verified 05/11/23 11:21 TO RESPOND-NEEDS F/U baclofen AdvReac Other Verified 05/11/23 11:21 lorazepam [From Ativan] AdvReac Nausea Verified 11/14/22 10:49 propranolol AdvReac Other Verified 05/11/23 11:21 Social History Smoking Status: Former smoker ROS ROS Narrative Constitutional: Reports fatigue and weakness. No fever. HEENT: Reports systems reviewed and no addt'l complaints, except as documented Respiratory/Chest: Former smoker. COPD. Hypoxia since last admission on 3 L ofoxygen. CVS: Sudden onset of shortness of breath. No chest pain pressure or tightness. History of minor heart attack 7 years ago Gastrointestinal: Denies coffee ground emesis, hematemesis or vomiting Genitourinary: Denies burning urination or new urinary tract symptoms Musculoskeletal: Denies acute joint pain or limited range of motion. No acute injury Neurologic: Denies seizure-like symptoms. skin: No ulcer. No rash Endocrinology: Reports systems reviewed and no addt'l complaints, except as documented Hematologic/Lymphatic: Reports systems reviewed and no addt'l complaints, exceptas documented Rest 14 ROS are negative except as mentioned in HPI Vital Signs Vital Signs Vital Signs: 06/04/23 11:14 06/04/23 11:18 06/04/23 11:25 Temperature 97.3 F L Temperature Source Temporal Pulse Rate 94 Respiratory Rate 23 H Respiratory Effort Short of Breath Labored Accessory Muscle Use Nasal Flaring Respiratory Depth Deep Respiratory Pattern Tachypnea Blood Pressure 161/119 H Blood Pressure Mean 133 Pulse Ox 93 Oxygen Delivery Method Nasal Cannula Nasal Cannula Bi-pap Oxygen Flow Rate (L/min) 3 3 Fraction of Inspired Oxygen (FIO2) 06/04/23 11:20 06/04/23 11:20 06/04/23 12:00 Temperature 97.6 F L Temperature Source Temporal Pulse Rate 91 88 83 Respiratory Rate 26 H 24 H 17 Respiratory Effort Respiratory Depth Respiratory Pattern Blood Pressure 174/100 H Blood Pressure Mean 124 Pulse Ox 94 93 Oxygen Delivery Method Bi-pap Oxygen Flow Rate (L/min) Fraction of Inspired Oxygen (FIO2) 35 06/04/23 12:30 06/04/23 13:00 06/04/23 13:08 Temperature 97.8 F Temperature Source Temporal Pulse Rate 84 83 Respiratory Rate 20 H 19 H Respiratory Effort Respiratory Depth Respiratory Pattern Blood Pressure 174/100 H Blood Pressure Mean 124 Pulse Ox 94 93 Oxygen Delivery Method Nasal Cannula Nasal Cannula Oxygen Flow Rate (L/min) 4 3 Fraction of Inspired Oxygen (FIO2) 06/04/23 13:59 06/04/23 14:00 Temperature 97.4 F L 98 F Temperature Source Temporal Pulse Rate 82 89 Respiratory Rate 17 16 Respiratory Effort Respiratory Depth Respiratory Pattern Blood Pressure 170/106 H 176/117 H Blood Pressure Mean 127 136 Pulse Ox 94 93 Oxygen Delivery Method Nasal Cannula Oxygen Flow Rate (L/min) 4 Fraction of Inspired Oxygen (FIO2) Weight Weight: 134 lb 4.184 oz Body Mass Index (BMI) 25.3 Physical Exam Narrative General: Alert, Oriented x3, Cooperative HEENT: Atraumatic, PERRLA, EOMI, Normocephalic Oral: No Gingival or Mucosal Lesions/ Ulcerations Neck: Supple, No JVD, Negative Carotid Bruits Chest wall/Lungs: Air entry diminished in bilateral lung bases. No crepitation/rhonchi Cardiovascular: Regular rate, Regular Rhythm, Normal S1, Normal S2, systolic murmur present on LLSB Abdomen: Bowel Sounds Present, Soft, Non Tender, Non-Distended : No dysuria. No renal angle tenderness. No suprapubic tenderness. Extremities: No edema, Capillary Refill Less than 3 Seconds Skin: No rashes, No breakdown Musculoskeletal: No Tenderness to Palpation of Joints or Extremities. ROM restricted. 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 Neurological: Cranial nerves II-XII grossly intact, DTR 2+/4. No acute focal neurological deficit. Psych/Mental Status: Flat affect. Sad, easily crying. Results Lab / Micro Data 06/04/23 11:27 06/04/23 11:27 Labs: Laboratory Results - last 24 hr 06/04/23 11:27: WBC 10.4, RBC 4.02 L, Hgb 11.8 L, Hct 38.3, MCV 95.3, MCH 29.4, MCHC 30.8 L, RDW Std Deviation 50.8 H, RDW Coeff of Alejandra 14.7 H, Plt Count 212, MPV 9.4, Immature Gran % (Auto) 0.700, Neut % (Auto) 77.2 H, Lymph % (Auto) 15.1L, [place] % (Auto) 4.7, Eos % (Auto) 1.8, Baso % (Auto) 0.5, Absolute Neuts (auto)8.0 H, Absolute Lymphs (auto) 1.56, Nucleated RBC % 0, PT 12.8, INR 1.0, APTT 24.7, Sodium 141, Potassium 4.3, Chloride 107, Carbon Dioxide 31.0, Anion Gap 3 L, BUN 14, Creatinine 0.90, Estim Creat Clear Calc 54.27, Est GFR (MDRD) Af Amer81, Est GFR (MDRD) Non-Af 67, BUN/Creatinine Ratio 15.5, Glucose 113 H, Calcium 8.5, Troponin I High Sens 17 Micro: Microbiology 06/04/23 11:30 Mucosa - Nose SARS-CoV-2, Influenza & RSV (PCR) - Final ABG Data ABG results: ABG 06/04/23 13:07 Specimen Type ART Sample Site R Brach pH 7.40 Bicarbonate Actual 28.7 H Total CO2 30 Base Excess 4 H O2 Saturation 84 L O2 % 3.0 ABG pCO2 46.5 H ABG pO2 50 L Carrie Test Positive O2 Delivery Device Cannula Vent Mode Not entered Imaging Radiology Impression Chest X-Ray 06/04/23 12:00 IMPRESSION: Progressive bibasilar pulmonary infiltrates worse on the right side with a small right pleural effusion. Mild degree of vascular congestion and CHF. Electronically Signed: Bebeto Mariscal MD at 12:48 EDT , Assessment & Plan Assessment/Plan (1) Acute and chronic respiratory failure with hypoxia: (2) Pneumonia: PLAN: Plan This 62-year-old female admitted for sudden onset of shortness of breath when she woke up in the morning today. 1. Acute on chronic hypoxic respiratory failure: Patient is being admitted in PCU. ABG done in ED shows 7.4/46.5/50/30 on 3 L of oxygen. Patient was put on high flow oxygen. Chest x-ray initially reviewed and shows bibasilar pulmonary infiltrate with worse on right side with small right pleural effusion but seems retrocardiac/lingular infiltrate and mild vascular congestion. 2. Bibasilar pneumonia: Patient was treated with antibiotic during previous visit. MRSA nasal screen was negative and ID was consulted. Pneumonia workup ordered. Lactic acid 2.5 but patient not having any hypotension probably from hypoxia or CHF/hypoperfusion. 3. Clinical suspicion of heart failure exacerbation: Chest x-ray shows vascularcongestion/CHF. BNP elevated.Twelve-lead EKG shows T inversions in in V1 to V5 with normal sinus rhythm 84 beats per 100. DN versus not present last time. QTc 422 ms. First troponin normal. Lasix 40 mg IV 1 dose ordered. Serial troponins ordered. Last echo in June 2017 as mentioned below. Continue Lasix 40 mg IV every 12 hourly as tolerated by hemodynamics plans for Interpretation Summary Normal LV size. Left ventricular systolic function is normal. The estimated ejection fraction is 55 %. The left atrium is moderately enlarged. Moderate (2+) eccentric mitral valve insufficiency. Pulmonary artery systolic pressure is 39 mmHg. Compared to prior study, there is no significant change. 4. Bipolar disorder, anxiety and multiple medications.: Continue Lexapro 05/14: The patient looked very anxious and restless. Resume home medication buspirone 5 mg, 3 times daily. On Hydroxyzine 25 mg tid prn, lyrixa 25 mg tid for neuropathic pain in hands 5. Fibromyalgia: Continue home pain medications including Zanaflex and hydrocodone: 6. Hypertension: Blood pressure is very high. Hold lisinopril and Lasix IV. Monitor BP and adjust the medications accordingly. 7. COPD: Patient has history of smoking 18 to 25 years of age, 1 pack/day. Patient already quit. Patient is being managed on scheduled bronchodilator, maintenance inhaler, Mucinex, incentive spirometry and Pep. 8. DVT prophylaxis: On enoxaparin 40 mg daily. Discontinue if platelet count drops less than 50,000 or hemoglobin less than 8 g% Living will/advanced directive/end of life care: Patient does have living will or advanced directive. After discussion of benefits/risks procedures involved with full code, DNR CC arrest and DNR CC, the patient opted for DNR CC arrest with no intubation. Patient doesn't want artificial life support including intubation, tube feed, ventilator and/chest compression, central venous catheter, vasopressor and DC shock if needed Total time spent in [id number] encounter in discussion of advanced directive 17 minutes. Microbiology Past 72 Hours 06/04/23 11:30 Mucosa - Nose SARS-CoV-2, Influenza & RSV (PCR) - Final Laboratory Results 06/04/23 11:27: WBC 10.4, RBC 4.02 L, Hgb 11.8 L, Hct 38.3, MCV 95.3, MCH 29.4, MCHC 30.8 L, RDW Std Deviation 50.8 H, RDW Coeff of Alejandra 14.7 H, Plt Count 212, MPV 9.4, Immature Gran % (Auto) 0.700, Neut % (Auto) 77.2 H, Lymph % (Auto) 15.1L, [place] % (Auto) 4.7, Eos % (Auto) 1.8, Baso % (Auto) 0.5, Absolute Neuts (auto)8.0 H, Absolute Lymphs (auto) 1.56, Nucleated RBC % 0, PT 12.8, INR 1.0, APTT 24.7, Sodium 141, Potassium 4.3, Chloride 107, Carbon Dioxide 31.0, Anion Gap 3 L, BUN 14, Creatinine 0.90, Estim Creat Clear Calc 54.27, Est GFR (MDRD) Af Amer 81, Est GFR (MDRD) Non-Af 67, BUN/Creatinine Ratio 15.5, Glucose 113 H, Calcium 8.5, Troponin I High Sens 17. B-Natriuretic Peptide 597.5 H 06/04/23 13:07: Specimen Type ART, Sample Site R Brach, pH 7.40, Bicarbonate Actual 28.7 H, Total CO2 30, Base Excess 4 H, O2 Saturation 84 L, O2 % 3.0, ABG pCO2 46.5 H, ABG pO2 50 L, Carrie Test Positive, O2 Delivery Device Cannula, VentMode Not entered 06/04/23 14:50: Lactic Acid 2.5 H* Clinical Impression(s) from Imaging Studies Chest X-Ray 06/04/23 12:00 IMPRESSION: Progressive bibasilar pulmonary infiltrates worse on the right side with a small right pleural effusion. Mild degree of vascular congestion and CHF. Electronically Signed: Bebeto Mariscal MD at 12:48 EDT , Charges/Coding Visit Charges Inpatient E&M: 17166 Init Hosp L3 Procedures Hospitalists Procedures: 01852 Advncd Care Plan 30 Min 06/04/23 1602 <Electronically signed by Sid Hillman MD> Cosigner Signature (if applicable): CC: SHMUEL RICE; Dr. Sid Hillman MD~ Signed ADDENDUM by Dr. Sid Hillman MD on 06/04/23 at 1608 Addendum Abnormal EKG: Twelve-lead EKG shows T inversions in in V1 to V5 with normal sinus rhythm 84 beats QTc 422 ms. Last EKG shows sinus tach at 110 bpm with upright T waves. Patient does not have chest pain pressure or tightness. First troponin normal. Serial troponins ordered. 06/04/23 1608<Electronically signed by Sid Hillman MD> Cosigner Signature (if applicable): cc: SHMUEL RICE; Dr. Sid Hillman MD ~* Signed [facility] Work Phone: 1(719) 875-163303-22-2024 Miscellaneous Notes* Telephone Encounter - Ute Vincent LPN - 05/24/2023 11:45 AM EDT Patient has been identified by name and date of : No Patient phones for refill(s): Requested Prescriptions Pending Prescriptions Disp Refills atorvastatin (LIPITOR) 40 mg tablet [Pharmacy Med Name: atorvastatin 40 mg tablet] 30 tablet 5 Sig: TAKE ONE TABLET BY MOUTH DAILY AT 9PM AT BEDTIME Date of last office visit in primary care: 05/02/2023 Date of next office visit in primary care: 06/03/2023 Please advise. Thank you. Ute Vincent LPN. [facility] Discharge summary Author Trey Joe [facility] May 20, 2023 12:31pm Note Date/Time May 20, 2023 11: 24am [facility] Medical Records Department [address] [place] [address] Discharge Summary 05/20/23 1118 MR#: [id number] Acct: [id number] Name: LEYDA LOPEZ Rep #:[id number] : 1960 62 From: Trey Joe DO PCP: SHMUEL PAGAN Status:ADM IN Location: [place] [id number]- [id number] Providers Date of Admission: 05/11/23 Primary Care Physician: SHMUEL PAGAN Consultations 05/14/23 17:06 Consult: Infectious Disease Routine Consulting Provider: Merrick White Reason for Consult: Worsening of Pneumonia on right side EMERGENT Consult: No MD Notified: Yes Date Notified: 05/14/23 Time Notified: 17:06 Method of Notification: Text 05/19/23 07:52 Consult: Quick Service Technician / Pulmonary Medicine Routine Consulting Provider: Intensivists/Pulmonary Med Reason for Consult: RLL consolidation. EMERGENT Consult: No MD Notified: Yes Date Notified: 05/19/23 Time Notified: 07:53 Method of Notification: Text Reason For Visit: DIARRHEA Diagnosis Discharge Diagnosis (1) RSV infection: Status: Acute Code(s): B33.8 - Other specified viral diseases Plan Diarrhea: * resolved Suspected gram negative pneumonia * RML infiltrate * on pip/tazo * complciated by RSV. * ID following * wean oxygen as able Hypoxia * CT showing RLL consolidation. Concerning for ATX. * Add PEP. Add vest therapy. * Added chest physiotherapy. * Minimal improvement. Consult pulmonary to see if any additional recommendations. * Pulm recommending scheduled ipratropium and acetylcysteine with follow up CXR in AM. * GIUSEPPE Willams, pt to follow up with pulmonary and have repeat CXR. * Will require oxygen at home. * Patient is ambulatory in home and in the community and requires home oxygen with portability. Chronic conditions: * Bipolar disorder, anxiety and multiple medications.: Continue home medications. * Fibromyalgia: Continue home pain medications including Zanaflex and hydrocodone * Hypertension: On lisinopril and Lasix at home, hold the medication for now given the hypokalemia DVT prophylaxis: Lovenox 40 mg subcu daily Medications at Discharge Home Medications albuterol sulfate 90 mcg/actuation aerosol inhaler (ProAir HFA) 2 puff inhalation Q4H PRN PRN Sob &/Or Wheezing 07/26/14 nitroglycerin 0.4 mg sublingual tablet 0.4 mg sublingual PRN PRN CHEST PAIN 06/04/17 hyoscyamine sulfate 0.125 mg sublingual tablet 0.125 mg sublingual Q8H PRN dyspepsia 10/09/22 amitriptyline 100 mg tablet 100 mg PO QHS depresssion 10/10/22 hydroxyzine HCl 25 mg tablet 50 mg PO Q8H PRN anxiety 10/10/22 meloxicam 7.5 mg tablet 7.5 mg PO DAILY pain 10/10/22 pregabalin 200 mg capsule 200 mg PO Q8H 10/10/22 sumatriptan succinate 50 mg tablet 50 mg PO PRN PRN migraine headache 10/10/22 ondansetron 4 mg disintegrating tablet 4 mg PO Q8H PRN PRN Nausea #14 tabs 11/14/22 atorvastatin 40 mg tablet 40 mg PO QHS Cholesterol 05/11/23 buspirone 5 mg tablet 5 mg PO TID Anxiety 05/11/23 dexlansoprazole 60 mg capsule,biphase delayed release 60 mg PO DAILY GERD 05/11/23 escitalopram oxalate 20 mg tablet 20 mg PO DAILY depression 05/11/23 fluticasone propionate 50 mcg/actuation nasal spray,suspension 2 spray intranasal DAILY allergies 05/11/23 furosemide 40 mg tablet 40 mg PO DAILY water pill 05/11/23 hydroxyzine HCl 50 mg tablet 50 mg PO TID Anxiety 05/11/23 pregabalin 25 mg capsule 25 mg PO BID Nerve pain 05/11/23 tizanidine 4 mg tablet 4 mg PO QHS PRN PRN muscle spasm 05/11/23 acetaminophen 325 mg tablet 1,000 mg (3.0769 x 325 mg) PO Q8H PRN PRN fever/pain1-10 #0 tabs 05/20/23 amoxicillin 875 mg-potassium clavulanate 125 mg tablet 1 tab PO BID #4 tabs 05/20/23 dextromethorphan-guaifenesin 30 mg-600 mg tablet extended [id number] hr (Mucinex DM) 2 tab PO BID #14 tabs 05/20/23 Hospital Course Operations None Procedures None Summary of Care Provided Minutes Spent on Discharge: 32 Hospital Course: Patient presents with diarrhea and shortness of breath. Patient had just been discharged with pneumonia to come back with increasing shortness of breath. Chest x-ray showed right lower lobe infiltrate. Patient was started on antibiotics. Additionally, patient was noted to have RSV. Patient was on 5 L nasal cannula but did not progress. Vest therapy was ensued and still required for amount of oxygen with 4 L. Pulmonary was consulted who added Mucomyst. Patient did better. Patient will be discharged home. Patient follow-up pulmonary, have repeat chest x-ray in the future and continue with antibiotics. Medical Records Data Medical Nutrition Assessment Dietitian: Malnutrition Criteria Met Start: 05/12/23 14:43 Freq: Status: Active Protocol: Document 05/17/23 14:46 SLA (Rec: 05/17/23 14:46 [facility] Desktop) Nutrition Malnutrition Evidence of Malnutrition Exists Yes Malnutrition (severe): Acute Illness/Injury Evidenced By Suboptimal Energy Intake ( Severe),Weight Loss (Severe) Clinical Problem Acute Disease or Injury Related Malnutrition Etiology severe protein-calorie malnutrition in the context of acute illness related to inadequate oral intake and altered GI function/diarrhea Signs/Symptoms as evidenced by ~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 Will change ensure clear BID to CIB w/ breakfast and dinner tray. Will continue magic cup ( vanilla) w/ lunch. Adjust ONS as needed to optimize PO and replete energy . Weight / BMI Weight Weight: 53.6 kg Body Mass Index (BMI) 22.3 ABG / Lab / Microbiology Data 05/18/23 05:51 05/18/23 05:51 Microbiology: Microbiology 05/16/23 10:37 Sputum, Expectorated/Coughed Gram Stain - Final 05/16/23 10:37 Sputum, Expectorated/Coughed Respiratory Culture - Final 05/16/23 10:00 Stool Stool Lactoferrin - Final 05/16/23 10:00 Stool Stool Occult Blood (FLO) - Final 05/11/23 12:55 Blood Culture (Wb) - Anticubital Right Blood Culture - Final No growth in 5 days. 05/11/23 13:00 Blood Culture (Wb) - Left Wrist Blood Culture - Final No growth in 5 days. 05/14/23 10:04 Nasal Secretion MRSA (PCR) - Final 05/13/23 15:06 Stool Enteric Bacteriology - Final 05/13/23 15:06 Stool Clostridioides difficile (PCR) - Final 05/11/23 11:37 Mucosa - Nasopharyngeal SARS-CoV-2, Influenza & RSV (PCR) - Final RSV Radiography Diagnostic Testing: Radiology Impression Chest X-Ray 05/20/23 06:15 IMPRESSION: 1. No change atelectasis/consolidation right lower lobe with small right pleural effusion. 2. Subsegmental atelectasis left lower lobe. Electronically Signed: Fareed Hendrickson MD at 7:52 EDT , D/C Instructions Discharge Diet: No restrictions Meaningful Use Info Meaningful Use Diagnoses (Choose all that apply): None applicable Discharge Plan Admission Admit Date/Time: 05/11/23 14:16 Primary Reason for Your Visit: Pneumonia Attending Provider: Trye Joe Primary Care Provider: DALI RICE Consulting Providers: Himanshu Aldana; Sid Hillman; Merrick White; Roque Mirza; Chato Jon; Kun Willams; Domingo Penn; Patricia Dyer; Frederic Gómez; Danielle Miguel; [place]; Grover Uiras;Norman Lozano; Joel Holguin; Rahul Jaimes Discharge Orders/Prescriptions Prescriptions: New Mucinex DM 30-600 mg Tablet Extended Release 12 Hr 2 tab PO BID Qty: 14 0RF acetaminophen 325 mg Tablet 1,000 mg PO Q8H PRN PRN (Reason: fever/pain 1-10) Qty: 0 0RF amoxicillin-pot clavulanate 875-125 mg tablet 1 tab PO BID Qty: 4 0RF Continued albuterol sulfate [ProAir HFA] 1 PUFF inhaler 2 puff inhalation Q4H PRN PRN (Reason: Sob &/Or Wheezing) nitroglycerin 0.4 MG tablet, sublingual 0.4 mg sublingual PRN PRN (Reason: CHEST PAIN) ondansetron 4 mg tablet,disintegrating 4 mg PO Q8H PRN PRN (Reason: Nausea) Qty: 14 0RF hyoscyamine sulfate 0.125 mg tablet, sublingual 0.125 mg sublingual Q8H PRN (Reason: dyspepsia) Patient Comments: DISSOLVE 1 TABLET UNDER THE TONGUE THREE TIMES DAILY NEEDED amitriptyline 100 mg tablet 100 mg PO QHS hydroxyzine HCl 25 mg tablet 50 mg PO Q8H PRN (Reason: anxiety) Patient Comments: TAKE TWO TABLETS BY MOUTH EVERY 8 HOURS NEEDED (VIAL) sumatriptan succinate 50 mg tablet 50 mg PO PRN PRN (Reason: migraine headache) meloxicam 7.5 mg tablet 7.5 mg PO DAILY Patient Comments: TAKE ONE TABLET BY MOUTH DAILY AT 9AM pregabalin 200 mg capsule 200 mg PO Q8H escitalopram oxalate 20 mg tablet 20 mg PO DAILY fluticasone propionate 50 mcg/actuation spray,suspension 2 spray INTRANASAL DAILY furosemide 40 mg tablet 40 mg PO DAILY tizanidine 4 mg tablet 4 mg PO QHS PRN PRN (Reason: muscle spasm) atorvastatin 40 mg tablet 40 mg PO QHS buspirone 5 mg tablet 5 mg PO TID dexlansoprazole 60 mg capsule,biphase delayed releas 60 mg PO DAILY hydroxyzine HCl 50 mg tablet 50 mg PO TID pregabalin 25 mg capsule 25 mg PO BID Discontinued lisinopril [Zestril] 40 MG tablet 40 mg PO DAILY lisinopril 20 mg tablet 40 mg PO DAILY Referrals / Follow Up: [facility] [Provider Group] - Within 1 Month DALI RICE NP-C [Primary Care Provider] - Within 2 Weeks Disposition Disposition (needs filled in before D/C Order can be placed): Home, Self Care Charges/Coding Visit Charges Inpatient E&M: 59750 Disch Hosp >30min 05/20/23 1134 <Electronically signed by Trey Joe DO> Cosigner Signature (if applicable): CC: CARPET BINDER-C DALI RICE; Dr. Trey Joe DO~ Signed ADDENDUM by Dr. Trey Joe DO on 05/20/23 at 1231 Addendum Oxygen testing reviewed and patient requires home oxygen with portability as patient is amatory in the home and community. 05/20/23 1231<Electronically signed by Trey Joe DO> Cosigner Signature (if applicable): cc: CARPET BINDER-C DALI RICE; Dr. Trey Joe DO ~* Signed [facility] Work Phone: 1(443) 323-893303-18-2024 Consult note Author Charles Arango [facility] May 20, 2023 12:17pm Note Date/Time May 20, 2023 12: 17pm [facility] Medical Records Department [address] [place] [address] Counseling Note - Pharmacy 05/20/23 1216 MR#: [id number] Acct: [id number] Name: LEYDA LOPEZ Joann Rep #:[id number] : 1960 62 From: Charles Arango PCP: SHMUEL PAGAN Status:ADM IN Y Location: [place] [address] Pharmacy [facility] has performed discharge medication reconciliation and counseling for this patient. The patient's discharge medication list was reviewed for discrepancies and discrepancies were resolved. The patient was counseled on the following discharge medications and changes in medications for homegoing were reviewed. The Reason for Use, instructions for use, and potential side effects were reviewed for all new medications. The patient's questions regarding all of their medications were answered. 1. Augmentin 875 PO BID x 2 days 2. Mucinex DM ER BID x 7 days 3. Acetaminophen 1000 mg PO Q8H PRN pain The patient was able to verbally demonstrate an understanding of their dischargemedications. Medications at Discharge Home Medications albuterol sulfate 90 mcg/actuation aerosol inhaler (ProAir HFA) 2 puff inhalation Q4H PRN PRN Sob &/Or Wheezing 07/26/14 nitroglycerin 0.4 mg sublingual tablet 0.4 mg sublingual PRN PRN CHEST PAIN 06/04/17 hyoscyamine sulfate 0.125 mg sublingual tablet 0.125 mg sublingual Q8H PRN dyspepsia 10/09/22 amitriptyline 100 mg tablet 100 mg PO QHS depresssion 10/10/22 hydroxyzine HCl 25 mg tablet 50 mg PO Q8H PRN anxiety 10/10/22 meloxicam 7.5 mg tablet 7.5 mg PO DAILY pain 10/10/22 pregabalin 200 mg capsule 200 mg PO Q8H 10/10/22 sumatriptan succinate 50 mg tablet 50 mg PO PRN PRN migraine headache 10/10/22 ondansetron 4 mg disintegrating tablet 4 mg PO Q8H PRN PRN Nausea #14 tabs 11/14/22 atorvastatin 40 mg tablet 40 mg PO QHS Cholesterol 05/11/23 buspirone 5 mg tablet 5 mg PO TID Anxiety 05/11/23 dexlansoprazole 60 mg capsule,biphase delayed release 60 mg PO DAILY GERD 05/11/23 escitalopram oxalate 20 mg tablet 20 mg PO DAILY depression 05/11/23 fluticasone propionate 50 mcg/actuation nasal spray,suspension 2 spray intranasal DAILY allergies 05/11/23 furosemide 40 mg tablet 40 mg PO DAILY water pill 05/11/23 hydroxyzine HCl 50 mg tablet 50 mg PO TID Anxiety 05/11/23 pregabalin 25 mg capsule 25 mg PO BID Nerve pain 05/11/23 tizanidine 4 mg tablet 4 mg PO QHS PRN PRN muscle spasm 05/11/23 acetaminophen 325 mg tablet 1,000 mg (3.0769 x 325 mg) PO Q8H PRN PRN fever/pain1-10 #0 tabs 05/20/23 amoxicillin 875 mg-potassium clavulanate 125 mg tablet 1 tab PO BID #4 tabs 05/20/23 dextromethorphan-guaifenesin 30 mg-600 mg tablet extended ybellxt12 hr (Mucinex DM) 2 tab PO BID #14 tabs 05/20/23 05/20/23 1217 <Electronically signed by Charles gunn> Date _ Charles Owens Signature (if applicable): Date CC: ~ Signed [facility] Work Phone: [phone]) 322-700703-18-2024 Progress note Author Trey Joe [facility] May 20, 2023 11:18am Note Date/Time May 20, 2023 7:5 9am [facility] Medical Records Department [address] [place] [address] Progress Note - Hospitalist 05/20/23 0757 MR#: [id number] Acct: [id number] Name: LEYDA LOPEZ Rep #:[id number] : 1960 62 From: Trey Joe DO PCP: DALI RICE CARPET BINDER-C Status:ADM IN Location: [place] [address] Reason for Visit Reason for Visit: Diagnoses Other specified viral diseases (05/11/23) Pneumonia, unspecified organism (05/11/23) Chronic obstructive pulmonary disease, unspecified (05/11/23) Subjective Subjective Breathing better. Objective Data Objective Data Vital Signs: Vital Signs Temp Pulse Resp BP Pulse Ox O2 Del Method O2 Flow Rate 36.8 C 81 16 111/70 95 Nasal Cannula 3 05/20/23 04:00 05/20/23 04:00 05/20/23 04:00 05/20/23 04:00 05/20/23 04:26 05/20/23 04:26 05/20/23 04:26 Oxygen Flow Rate (L/min) 3 Oxygen Delivery Method Nasal Cannula Weight: 53.6 kg Body Mass Index (BMI) 22.3 Intake & Output: Intake and Output for Last 24 Hours 05/18/23 05/19/23 05/20/23 23:59 23:59 23:59 Intake Total 1290.5 / 1590.5 1749.5 / 1749.5 50 / 50 Output Total 0 / 0 300 / 300 300 / 300 Balance 1290.5 / 1590.5 1449.5 / 1449.5 -250 / -250 Medical Nutrition Assessment Dietitian: Malnutrition Criteria Met Start: 05/12/23 14:43 Freq: Status: Active Protocol: Document 05/17/23 14:46 SLA (Rec: 05/17/23 14:46 SLA Desktop) Nutrition Malnutrition Evidence of Malnutrition Exists Yes Malnutrition (severe): Acute Illness/Injury Evidenced By Suboptimal Energy Intake ( Severe),Weight Loss (Severe) Clinical Problem Acute Disease or Injury Related Malnutrition Etiology severe protein-calorie malnutrition in the context of acute illness related to inadequate oral intake and altered GI function/diarrhea Signs/Symptoms as evidenced by ~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 Will change ensure clear BID to CIB w/ breakfast and dinner tray. Will continue magic cup ( vanilla) w/ lunch. Adjust ONS as needed to optimize PO and replete energy . Lab / Micro Data 05/18/23 05:51 05/18/23 05:51 Micro: Microbiology 05/16/23 10:37 Sputum, Expectorated/Coughed Gram Stain - Final 05/16/23 10:37 Sputum, Expectorated/Coughed Respiratory Culture - Final 05/16/23 10:00 Stool Stool Lactoferrin - Final 05/16/23 10:00 Stool Stool Occult Blood (FLO) - Final 05/11/23 12:55 Blood Culture (Wb) - Anticubital Right Blood Culture - Final No growth in 5 days. 05/11/23 13:00 Blood Culture (Wb) - Left Wrist Blood Culture - Final No growth in 5 days. 05/14/23 10:04 Nasal Secretion MRSA (PCR) - Final 05/13/23 15:06 Stool Enteric Bacteriology - Final 05/13/23 15:06 Stool Clostridioides difficile (PCR) - Final 05/11/23 11:37 Mucosa - Nasopharyngeal SARS-CoV-2, Influenza & RSV (PCR) - Final RSV Radiography Diagnostic Testing: Radiology Impression Chest X-Ray 05/20/23 06:15 IMPRESSION: 1. No change atelectasis/consolidation right lower lobe with small right pleural effusion. 2. Subsegmental atelectasis left lower lobe. Electronically Signed: Fareed Hendrickson MD at 7:52 EDT , Physical Exam Const alert and no apparent distress HEENT head/scalp atraumatic Resp normal respiratory effort, no retractions, no use of accessory muscles and clearto auscultation bilaterally Cardio regular rate, regular rhythm, S1 normal heart sound and S2 normal heart sound GI normal to inspection, nondistended, normoactive bowel sounds, soft to palpation,non-tender and non-distended Extremity normal to inspection Assessment & Plan Assessment/Plan (1) RSV infection: PLAN: Plan Diarrhea: * resolved Suspected gram negative pneumonia * RML infiltrate * on pip/tazo * complciated by RSV. * ID following * wean oxygen as able Hypoxia * CT showing RLL consolidation. Concerning for ATX. * Add PEP. Add vest therapy. * Added chest physiotherapy. * Minimal improvement. Consult pulmonary to see if any additional recommendations. * Pulm recommending scheduled ipratropium and acetylcysteine with follow up CXR in AM. * DW Dr. Willams, pt to follow up with pulmonary and have repeat CXR. * Will require oxygen at home. * Patient is ambulatory in home and in the community and requires home oxygen with portability. Chronic conditions: * Bipolar disorder, anxiety and multiple medications.: Continue home medications. * Fibromyalgia: Continue home pain medications including Zanaflex and hydrocodone * Hypertension: On lisinopril and Lasix at home, hold the medication for now given the hypokalemia DVT prophylaxis: Lovenox 40 mg subcu daily 05/20/23 1118 <Electronically signed by Trey Joe DO> Cosigner Signature (if applicable): CC: ~ Signed [facility] Work Phone: 1(969) 169-573203-18-2024 Progress note Author Kun Willams [facility] May 20, 2023 11:07am Note Date/Time May 20, 2023 11: 07am [facility] Medical Records Department [address] [place] [address] Progress Note - Quick Service Technician 05/20/23 1101 MR#: [id number] Acct: [id number] Name: JOHNLEYDA L Rep #:[id number] : 1960 62 From: Kun Willams DO PCP: DALI RICE, CARPET BINDER-C Status:ADM IN Location: [place] [id number]- [id number] Assessment & Plan Assessment/Plan (1) Hypoxia: (2) RSV infection: (3) Community acquired pneumonia: PLAN: Plan RECOMMENDATIONS: 1. Continue to wean supplemental oxygen to maintain saturations at or above 90%. 2. Continue antibiotics to complete 7 days of therapy. 3. Continue aggressive bronchopulmonary hygiene. 4. Continue bronchodilator therapy. 5. Encourage incentive spirometer use and mobilize patient as tolerated. 6. Outpatient pulmonary follow-up after discharge. Recommend repeat chest imaging in 6 to 8 weeks to document resolution. IMPRESSIONS: 1. Shortness of breath and hypoxemia The patient has a reported history of COPD but is not currently established witha advertising operations coordinator. She was admitted with an exacerbation related to RSV coupled with probable secondary bacterial pneumonia. The patient appears to be improving clinically on bronchodilator therapy and antimicrobials. As such, I would continue current supportive care. Supplemental oxygen can be weaned to maintain saturations at or above 90%. I would recommend continuing antibiotics to complete 7 days of therapy. Lastly, I would recommend that the patient follow-up in the pulmonary medicine clinic after discharge so that repeat chest imaging can be completed in 6 to 8 weeks to document resolution of the patient'sright lower lobe consolidation. 2. History of COPD/fibromyalgia/rheumatoid arthritis/hypertension/bipolar disorder Complicates care, management, recovery and prognosis. Continue home medicationsas indicated. Perform walking oximetry study prior to consideration for discharge home. This note was generated with [employer] dictation software. It may contain incorrectwords, spelling, and punctuation that were not noted in checking the note beforesigning. Subjective Subjective The patient was seen and examined at the bedside this morning. Events from the last 24 hours have been reviewed. The patient is currently afebrile, hemodynamically stable and maintaining appropriate oxygen saturations on 3 L/minvia nasal cannula. The patient reported that she feels much improved from a respiratory perspective with less shortness of breath. In addition, she reported that her cough is no longer productive of green to yellow sputum. She does appear anxious to be discharged home. Objective Data Objective Data The patient's most recent lab work, culture data and imaging studies have all been personally reviewed. Respiratory viral panel was positive for RSV on . Vital Signs: Vital Signs Temp Pulse Resp BP Pulse Ox O2 Del Method O2 Flow Rate 98.1 F 87 18 134/79 H 94 Nasal Cannula 3 05/20/23 09:25 05/20/23 09:25 05/20/23 09:25 05/20/23 09:25 05/20/23 09:25 05/20/23 09:25 05/20/23 09:25 Oxygen Flow Rate (L/min) 3 Oxygen Delivery Method Nasal Cannula Weight: 118 lb 2.684 oz Body Mass Index (BMI) 22.3 Intake & Output: Intake and Output for Last 24 Hours 05/18/23 05/19/23 05/20/23 23:59 23:59 23:59 Intake Total 1290.5 / 1590.5 1749.5 / 1749.5 100 / 100 Output Total 0 / 0 300 / 300 300 / 300 Balance 1290.5 / 1590.5 1449.5 / 1449.5 -200 / -200 Medical Nutrition Assessment Dietitian: Malnutrition Criteria Met Start: 05/12/23 14:43 Freq: Status: Active Protocol: Document 05/17/23 14:46 SLA (Rec: 05/17/23 14:46 SLA Desktop) Nutrition Malnutrition Evidence of Malnutrition Exists Yes Malnutrition (severe): Acute Illness/Injury Evidenced By Suboptimal Energy Intake ( Severe),Weight Loss (Severe) Clinical Problem Acute Disease or Injury Related Malnutrition Etiology severe protein-calorie malnutrition in the context of acute illness related to inadequate oral intake and altered GI function/diarrhea Signs/Symptoms as evidenced by ~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 Will change ensure clear BID to CIB w/ breakfast and dinner tray. Will continue magic cup ( vanilla) w/ lunch. Adjust ONS as needed to optimize PO and replete energy . Lab / Micro Data Attestation: I reviewed the patient's lab results. 05/18/23 05:51 05/18/23 05:51 Micro: Microbiology 05/16/23 10:37 Sputum, Expectorated/Coughed Gram Stain - Final 05/16/23 10:37 Sputum, Expectorated/Coughed Respiratory Culture - Final 05/16/23 10:00 Stool Stool Lactoferrin - Final 05/16/23 10:00 Stool Stool Occult Blood (FLO) - Final 05/11/23 12:55 Blood Culture (Wb) - Anticubital Right Blood Culture - Final No growth in 5 days. 05/11/23 13:00 Blood Culture (Wb) - Left Wrist Blood Culture - Final No growth in 5 days. 05/14/23 10:04 Nasal Secretion MRSA (PCR) - Final 05/13/23 15:06 Stool Enteric Bacteriology - Final 05/13/23 15:06 Stool Clostridioides difficile (PCR) - Final 05/11/23 11:37 Mucosa - Nasopharyngeal SARS-CoV-2, Influenza & RSV (PCR) - Final RSV Radiography Diagnostic Testing: Radiology Impression Chest X-Ray 05/20/23 06:15 IMPRESSION: 1. No change atelectasis/consolidation right lower lobe with small right pleural effusion. 2. Subsegmental atelectasis left lower lobe. Electronically Signed: Fareed Hendrickson MD at 7:52 EDT , Physical Exam Const alert and no apparent distress Constitutional Narrative: A bit anxious in appearance. General Appearance: cooperative HEENT normocephalic and head/scalp atraumatic Eyes PERRL, EOMs intact bilaterally and conjunctivae normal Neck supple General: trachea midline Chest inspection of chest normal Resp normal respiratory effort Auscultation: diminished lung sounds Cardio regular rate and regular rhythm GI normal to inspection, nondistended, normoactive bowel sounds Extremity no clubbing, cyanosis or edema Skin no rashes or lesions noted Neuro CN's II-XII intact bilaterally and no focal motor deficits Psych cooperative Charges/Coding Visit Charges Inpatient E&M: 48263 Subs Hosp L2 05/20/23 1107 <Electronically signed by Kun Willams DO> Cosigner Signature (if applicable): CC: ~ Signed [facility] Work Phone: 1(521) 588-485303-17-2024 Progress note Author Trey Joe [facility] May 19, 2023 12:01pm Note Date/Time May 19, 2023 7:5 4am [facility] Medical Records Department [address] [place] [address] Progress Note - Hospitalist 05/19/23 0752 MR#: [id number] Acct: [id number] Name: LEYDA LOPEZ Rep #:[id number] : 1960 62 From: Trey Joe DO PCP: DALI RICE [employer]PET BINDER-C Status:ADM IN Location: [place] [address] Reason for Visit Reason for Visit: Diagnoses Other specified viral diseases (05/11/23) Pneumonia, unspecified organism (05/11/23) Chronic obstructive pulmonary disease, unspecified (05/11/23) Subjective Subjective Feeling better. Still anxious to go home. Objective Data Objective Data Vital Signs: Vital Signs Temp Pulse Resp BP Pulse Ox O2 Del Method O2 Flow Rate 37.0 C 85 18 116/76 91 Nasal Cannula 4 05/19/23 02:00 05/19/23 02:00 05/19/23 02:00 05/19/23 02:00 05/19/23 02:00 05/19/23 04:00 05/19/23 04:00 Oxygen Flow Rate (L/min) 4 Oxygen Delivery Method Nasal Cannula Weight: 53.6 kg Body Mass Index (BMI) 22.3 Intake & Output: Intake and Output for Last 24 Hours 05/17/23 05/18/23 05/19/23 23:59 23:59 23:59 Intake Total 1296.04 / 1396.04 1290.5 / 1590.5 700 / 700 Output Total 1700 / 1700 0 / 0 Balance -403.96 / -303.96 1290.5 / 1590.5 700 / 700 Medical Nutrition Assessment Dietitian: Malnutrition Criteria Met Start: 05/12/23 14:43 Freq: Status: Active Protocol: Document 05/17/23 14:46 SLA (Rec: 05/17/23 14:46 SLA Desktop) Nutrition Malnutrition Evidence of Malnutrition Exists Yes Malnutrition (severe): Acute Illness/Injury Evidenced By Suboptimal Energy Intake ( Severe),Weight Loss (Severe) Clinical Problem Acute Disease or Injury Related Malnutrition Etiology severe protein-calorie malnutrition in the context of acute illness related to inadequate oral intake and altered GI function/diarrhea Signs/Symptoms as evidenced by ~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 Will change ensure clear BID to CIB w/ breakfast and dinner tray. Will continue magic cup ( vanilla) w/ lunch. Adjust ONS as needed to optimize PO and replete energy . Lab / Micro Data 05/18/23 05:51 05/18/23 05:51 Micro: Microbiology 05/16/23 10:37 Sputum, Expectorated/Coughed Gram Stain - Final 05/16/23 10:37 Sputum, Expectorated/Coughed Respiratory Culture - Final 05/16/23 10:00 Stool Stool Lactoferrin - Final 05/16/23 10:00 Stool Stool Occult Blood (FLO) - Final 05/11/23 12:55 Blood Culture (Wb) - Anticubital Right Blood Culture - Final No growth in 5 days. 05/11/23 13:00 Blood Culture (Wb) - Left Wrist Blood Culture - Final No growth in 5 days. 05/14/23 10:04 Nasal Secretion MRSA (PCR) - Final 05/13/23 15:06 Stool Enteric Bacteriology - Final 05/13/23 15:06 Stool Clostridioides difficile (PCR) - Final 05/11/23 11:37 Mucosa - Nasopharyngeal SARS-CoV-2, Influenza & RSV (PCR) - Final RSV Physical Exam Const alert and no apparent distress HEENT head/scalp atraumatic and moist oral mucous membranes Resp Resp Narrative: diminished in RLL Cardio regular rate, regular rhythm, S1 normal heart sound and S2 normal heart sound GI normal to inspection, nondistended, normoactive bowel sounds Assessment & Plan Assessment/Plan (1) RSV infection: PLAN: Plan Diarrhea: * resolved Suspected gram negative pneumonia * RML infiltrate * on pip/tazo * complciated by RSV. * ID following * wean oxygen as able Hypoxia * CT showing RLL consolidation. Concerning for ATX. * Add PEP. Add vest therapy. * Added chest physiotherapy. * Minimal improvement. Consult pulmonary to see if any additional recommendations. * Pulm recommending scheduled ipratropium and acetylcysteine with follow up CXR in AM. Chronic conditions: * Bipolar disorder, anxiety and multiple medications.: Continue home medications. * Fibromyalgia: Continue home pain medications including Zanaflex and hydrocodone * Hypertension: On lisinopril and Lasix at home, hold the medication for now given the hypokalemia DVT prophylaxis: Lovenox 40 mg subcu daily Charges/Coding Visit Charges Inpatient E&M: 62142 Subs Hosp L2 05/19/23 1201 <Electronically signed by Trey Joe DO> Cosigner Signature (if applicable): CC: ~ Signed [facility] Work Phone: 1(251) 576-318203-17-2024 Consult note Author Norman Lozano [facility] May 19, 2023 11:18am Note Date/Time May 19, 2023 11: 01am [facility] Medical Records Department [address] [place] [address] Consultation - Quick Service Technician 05/19/23 1056 MR#: [id number] Acct: [id number] Name: LEYDA LOPEZ Rep #:[id number] : 1960 62 From: Norman Lozano MD PCP: DALI RICE, [employer]-C Status:ADM [facility] HPI Consult Data Date of Consult: 05/19/23 HPI Narrative Reason for Consultation: PNA, persistent consolidation HPI Narrative: 62YF PMH COPD, former tobacco abuse but reports quiting in her 20s, marijuana use, RA on meloxicam (reportedly hand/wrist involvement), CKD stage III, bipolardisorder who was initially admitted on 05/10 for RSV. She does not have a advertising operations coordinator and at home is only on PRN albuterol. Hospital course cb by fever and she was transitioned to broad spectrum emp IV ABx. F/U CT imaging from 05/16 revealed on-going RML and new RLL conslidation with small Rt effusion prompting consult this morning for further evaluation. Pt reports feeling much better overall. Denies SOB. Has productive cough and she is bringing up clearer lookingphlegm (previously discolored). She mobilizes up to the restroom and in bed and reports using IS freq. Currently on O2 @ 4 L with sats low/mid 90s. [facility] Medical History Bipolar 1 disorder COPD (chronic obstructive pulmonary disease) Fibromyalgia Hypertension NSTEMI (non-ST elevated myocardial infarction) Rheumatoid arthritis Home Medications albuterol sulfate 90 mcg/actuation aerosol inhaler (ProAir HFA) 2 puff inhalation Q4H PRN PRN Sob &/Or Wheezing 07/26/14 [History Last Taken 06/06/17] lisinopril 40 mg tablet (Zestril) 40 mg PO DAILY bp 07/26/14 [History Last Taken 06/07/17] nitroglycerin 0.4 mg sublingual tablet 0.4 mg sublingual PRN PRN CHEST PAIN 06/04/17 [History Last Taken Unknown] hyoscyamine sulfate 0.125 mg sublingual tablet 0.125 mg sublingual Q8H PRN dyspepsia 10/09/22 [History Last Taken Unknown] amitriptyline 100 mg tablet 100 mg PO QHS depresssion 10/10/22 [History Last Taken Unknown] hydroxyzine HCl 25 mg tablet 50 mg PO Q8H PRN anxiety 10/10/22 [History Last Taken Unknown] lisinopril 20 mg tablet 40 mg PO DAILY BP 10/10/22 [History Last Taken Unknown] meloxicam 7.5 mg tablet 7.5 mg PO DAILY pain 10/10/22 [History Last Taken Unknown] pregabalin 200 mg capsule 200 mg PO Q8H 10/10/22 [History Last Taken Unknown] sumatriptan succinate 50 mg tablet 50 mg PO PRN PRN migraine headache 10/10/22 [History Last Taken Unknown] ondansetron 4 mg disintegrating tablet 4 mg PO Q8H PRN PRN Nausea #14 tabs 11/14/22 [Rx Last Taken Unknown] atorvastatin 40 mg tablet 40 mg PO QHS Cholesterol 05/11/23 [History Last Taken Unknown] buspirone 5 mg tablet 5 mg PO TID Anxiety 05/11/23 [History Last Taken Unknown] dexlansoprazole 60 mg capsule,biphase delayed release 60 mg PO DAILY GERD 05/11/23 [History Last Taken Unknown] escitalopram oxalate 20 mg tablet 20 mg PO DAILY depression 05/11/23 [History Last Taken Unknown] fluticasone propionate 50 mcg/actuation nasal spray,suspension 2 spray intranasal DAILY allergies 05/11/23 [History Last Taken Unknown] furosemide 40 mg tablet 40 mg PO DAILY water pill 05/11/23 [History Last Taken Unknown] hydroxyzine HCl 50 mg tablet 50 mg PO TID Anxiety 05/11/23 [History Last Taken Unknown] pregabalin 25 mg capsule 25 mg PO BID Nerve pain 05/11/23 [History Last Taken Unknown] tizanidine 4 mg tablet 4 mg PO QHS PRN PRN muscle spasm 05/11/23 [History Last Taken Unknown] Allergy/AdvReac Type Severity Reaction Status Date / Time methotrexate Allergy Other Verified 05/11/23 11:21 nadolol Allergy Unknown Verified 05/11/23 11:21 prochlorperazine Allergy PT UNABLE Verified 05/11/23 11:21 TO RESPOND-NEEDS F/U baclofen AdvReac Other Verified 05/11/23 11:21 lorazepam [From Ativan] AdvReac Nausea Verified 11/14/22 10:49 propranolol AdvReac Other Verified 05/11/23 11:21 Social History Smoking Status: Former smoker ROS ROS Narrative Full 12 point ROS completed and neg unless stated in HPI above. Objective Data Objective Data Vital Signs: Vital Signs Last response Temperature 36.6 C 05/19/23 08:00 Temperature Source Oral 05/19/23 08:00 Pulse Rate 85 05/19/23 09:23 Pulse Strength Normal (2+) 05/18/23 22:00 Respiratory Rate 18 05/19/23 09:23 Respiratory Effort Normal 05/19/23 09:23 Respiratory Depth Normal 05/19/23 09:23 Respiratory Pattern Normal 05/19/23 09:23 Blood Pressure 118/80 05/19/23 08:00 Blood Pressure Mean 92 05/19/23 08:00 Blood Pressure Source Monitor 05/19/23 08:00 Blood Pressure Position Semi-Fowlers 05/19/23 08:00 Blood Pressure Location Right Arm 05/19/23 08:00 Pulse Ox 93 05/19/23 08:00 Oxygen Delivery Method Nasal Cannula 05/19/23 09:23 Oxygen Flow Rate (L/min) 4 05/19/23 09:23 I&O: I&O Last 24 Hours 05/18/23 05/18/23 05/19/23 11:59 23:59 11:59 Intake Total 200 / 1590.5 1090.5 / 1590.5 700 / 700 Output Total 0 / 0 Balance 200 / 1590.5 1090.5 / 1590.5 700 / 700 I&O: Total Stay 05/11/23 11:14 thru 05/19/23 06:00 Intake Total 76991.54 Output Total 2950 Balance 7646.54 Current Meds Ordered / Administered: Current meds ordered / Administered Generic Name Dose Route Start Last Admin Trade Name Freq PRN Reason Stop Dose Admin Acetaminophen 650 mg 05/13/23 04:27 05/15/23 13:52 Acetaminophen 325 Mg Tablet PO 650 mg Q4H PRN PRN Administration fever/pain 1-10 Hydrocodone Bitart/Acetaminophen 1 tablet 05/11/23 14:29 05/19/23 09:21 Hydrocodone Bitartrate/Apap 5/325 Tablet PO 1 tablet Q6H PRN PRN Administration Pain Score 1-10 Acetylcysteine 800 mg 05/19/23 11:00 Acetylcysteine 800 Mg/4 Ml Vial.Neb. INHALATION Q8H.RT DAVIS Albuterol/Ipratropium 3 ml 05/17/23 08:07 Ipratropium/Albuterol Sulfate 3 Ml Ampul.Neb INHALATION Q4HWA.RT PRN SHORTNESS OF BREATH Amitriptyline HCl 50 mg 05/15/23 22:00 05/18/23 20:43 Amitriptyline 25 Mg Tablet PO 50 mg QHS DAVIS Administration Atorvastatin Calcium 40 mg 05/15/23 22:00 05/18/23 20:44 Atorvastatin Calcium 40 Mg Tablet PO 40 mg QHS DAVIS Administration Buspirone HCl 5 mg 05/15/23 10:00 05/19/23 05:44 Buspirone 5 Mg Tablet PO 5 mg TID DAVIS Administration Calamine/Phenol 1 applic 05/12/23 10:00 05/19/23 09:11 Menthol/Lanolin/Calamine/Znox 113 Gm Tube TOPICAL 1 applic BID DAVIS Administration Protocol Calcium Carbonate 1,000 mg 05/13/23 20:14 05/18/23 13:43 Calcium Carbonate 500 Mg Tablet PO 1,000 mg Q6H PRN PRN Administration DYSPEPSIA/INDIGESTION Enoxaparin Sodium 40 mg 05/12/23 10:00 05/19/23 09:11 Enoxaparin 40 Mg/0.4 Ml Syringe SC 40 mg DAILY DAVIS Administration Escitalopram Oxalate 20 mg 05/16/23 14:35 05/19/23 09:07 Escitalopram Oxalate 20 Mg Tablet PO 20 mg DAILY DAVIS Administration Fluticasone Propionate 2 spray 05/12/23 10:00 05/19/23 09:08 Fluticasone 0.05% 1 [place] Nasal.Sry NASAL 2 spray DAILY DAVIS Administration Furosemide 40 mg 05/14/23 17:05 05/19/23 09:13 Furosemide 40 Mg/4 Ml Vial IV 40 mg DAILY DAVIS Administration Protocol Guaifenesin 2 tablet 05/12/23 11:05 05/19/23 09:09 Guaifenesin/D-Methorphan Tab.Sr.12h PO Not Given BID DAVIS Hydroxyzine Pamoate 25 mg 05/12/23 11:06 05/18/23 20:44 Hydroxyzine Danette 25 Mg Capsule PO 25 mg Q8H PRN PRN Administration anxiety Sodium Chloride 250 mls @ 15 mls/hr 05/11/23 14:34 05/18/23 18:17 IV 15 mls/hr .[id number] PRN Infusion Additional IVPB Infusion Sodium Chloride 250 mls @ 15 mls/hr 05/11/23 14:34 IV .[id number] PRN Saline Flush Piperacillin Sod/Tazobactam 50 mls @ 12.5 mls/hr 05/14/23 09:15 05/19/23 05:43 Sod 3.375 gm/ Sodium Chloride IV 12.5 mls/hr Q8 DAVIS Administration Pregabalin 25 mg 05/15/23 15:30 05/19/23 05:44 Pregabalin 25 Mg Capsule PO 25 mg TID DAVIS Administration Sodium Chloride 10 - 40 ml 05/11/23 14:34 05/18/23 10:48 0.9% Saline Lock 10 Ml Syringe IV 10 ml UD PRN Administration SALINE FLUSH Tizanidine HCl 4 mg 05/11/23 14:32 05/14/23 17:13 Tizanidine Hcl 2 Mg Tablet PO 4 mg QHS PRN PRN Administration muscle spasm Medical Records Data Medical Nutrition Assessment Dietitian: Malnutrition Criteria Met Start: 05/12/23 14:43 Freq: Status: Active Protocol: Document 05/17/23 14:46 SLA (Rec: 05/17/23 14:46 SLA Desktop) Nutrition Malnutrition Evidence of Malnutrition Exists Yes Malnutrition (severe): Acute Illness/Injury Evidenced By Suboptimal Energy Intake ( Severe),Weight Loss (Severe) Clinical Problem Acute Disease or Injury Related Malnutrition Etiology severe protein-calorie malnutrition in the context of acute illness related to inadequate oral intake and altered GI function/diarrhea Signs/Symptoms as evidenced by ~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 Will change ensure clear BID to CIB w/ breakfast and dinner tray. Will continue magic cup ( vanilla) w/ lunch. Adjust ONS as needed to optimize PO and replete energy . Lab / Micro Data 05/18/23 05:51 05/18/23 05:51 Micro: Microbiology 05/16/23 10:37 Sputum, Expectorated/Coughed Gram Stain - Final 05/16/23 10:37 Sputum, Expectorated/Coughed Respiratory Culture - Final Assessment and Plan . Assessment and plan: A/P General: Well developed, chronically ill appearing female; in no distress HEENT: anicteric Sclera, nl nose; poor dentition; supple neck, no masses Cardiovascular: S1/S2; No rubs, gallops; no displaced PM Respiratory: diminished; no crackles, wheezes, or rhonchi Abdominal: Non-tender; Non distended; hypoBS x 4; No Hepatosplenomegaly Extremities: Warm, well perfused; No cyanosis; capillary refill < 2 sec Skin: intact, no rashes Neurological: no gross deficits appreciated; A&Ox3 Psych: pleasant affect; no hallucinations A/P #Acute hypoxemic respiratory failure #RSV #PNA with small effusion #?Atelectasis/mucus plugging -Cont O2; titrate to sats ~90-92%; cont freq IS use and encouraged mobilization -Sig subjective improvement but on-going consolidative changes in RML/RLL on F/Uimaging which may be 2* to concomitant bacterial PNA vs atelectasis -Added scheduled q4h ipratropium while awake (reported feeling jittery/tremulouswith albuterol) & q8h Mucomyst to see if conservative measures help; F/U AM CXR and if changes persist/worsening can consider further bronchoscopic evaluation for diagnostic/therapeutic purposes and to facilitate discharge plans The entirety of this encounter was done via Telemedicine 05/19/23 1118 <Electronically signed by Norman Lozano MD> Cosigner Signature (if applicable): CC: CARPET BINDER-C DALI RICE; Dr. Himanshu Aldana MD; Dr. Roque Mirza MD; Dr. Chato Jon MD; Dr. Kun Willams DO; Dr. Domingo Penn MD; Dr. Frederic Gómez MD; Dr. Danielle Miguel MD; Dr. North Berry MD; Dr. Grover Urias MD; Dr. Sid Hillman MD; Dr. Merrick White MD; Dr. Nroman Lozano MD; Dr. Joel Holguin MD; Dr. Rahul Jaimes MD; Dr. Patricia Dyer MD~ Signed [facility] Work Phone: [phone]) 211-503403-16-2024 Progress note Author Trey eugene [facility] May 18, 2023 12:43pm Note Date/Time May 18, 2023 8:2 5am [facility] Medical Records Department [address] [place] [address] Progress Note - Hospitalist 05/18/23823 MR#: [id number] Acct: [id number] Name: LEYDA LOPEZ Rep #:[id number] : 1960 62 From: Trey Joe DO PCP: SHMUEL PAGAN Status:ADM IN Location: [place] [id number]- Reason for Visit Reason for Visit: Diagnoses Other specified viral diseases (05/11/23) Pneumonia, unspecified organism (05/11/23) Chronic obstructive pulmonary disease, unspecified (05/11/23) Subjective Subjective Breathing ok. Ready to go home. Reports only having used chest therapy x1. Stillwith pain on left lateral foot. Objective Data Objective Data Vital Signs: Vital Signs Temp Pulse Resp BP Pulse Ox O2 Del Method O2 Flow Rate 36.7 C 93 16 140/86 H 94 Nasal Cannula 4 05/18/23 06:00 05/18/23 06:00 05/18/23 06:00 05/18/23 06:00 05/18/23 06:00 05/18/23 06:00 05/18/23 06:00 Oxygen Flow Rate (L/min) 4 Oxygen Delivery Method Nasal Cannula Weight: 53.6 kg Body Mass Index (BMI) 22.3 Intake & Output: Intake and Output for Last 24 Hours 05/16/23 05/17/23 05/18/23 23:59 23:59 23:59 Intake Total 270 / 490 1296.04 / 1396.04 150 / 150 Output Total 0 / 0 1700 / 1700 0 / 0 Balance 270 / 490 -403.96 / -303.96 150 / 150 Medical Nutrition Assessment Dietitian: Malnutrition Criteria Met Start: 05/12/23 14:43 Freq: Status: Active Protocol: Document 05/17/23 14:46 SLA (Rec: 05/17/23 14:46 SLA Desktop) Nutrition Malnutrition Evidence of Malnutrition Exists Yes Malnutrition (severe): Acute Illness/Injury Evidenced By Suboptimal Energy Intake ( Severe),Weight Loss (Severe) Clinical Problem Acute Disease or Injury Related Malnutrition Etiology severe protein-calorie malnutrition in the context of acute illness related to inadequate oral intake and altered GI function/diarrhea Signs/Symptoms as evidenced by ~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 Will change ensure clear BID to CIB w/ breakfast and dinner tray. Will continue magic cup ( vanilla) w/ lunch. Adjust ONS as needed to optimize PO and replete energy . Lab / Micro Data 05/18/23 05:51 05/18/23 05:51 Labs: Laboratory Results - last 24 hr 05/18/23 05:51: WBC 7.8, RBC 3.64 L, Hgb 10.7 L, Hct 33.6 L, MCV 92.3, MCH 29.4,MCHC 31.8 L, RDW Std Deviation 44.8 H, RDW Coeff of Alejandra 13.2, Plt Count 533 H, MPV 9.0, Immature Gran % (Auto) 0.900, Neut % (Auto) 57.4, Lymph % (Auto) 25.5, [place] % (Auto) 11.0 H, Eos % (Auto) 4.3, Baso % (Auto) 0.9, Absolute Neuts (auto)4.5, Absolute Lymphs (auto) 1.98, Nucleated RBC % 0, Sodium 138, Potassium 3.8, Chloride 102, Carbon Dioxide 33.0 H, Anion Gap 3 L, BUN 19 H, Creatinine 0.92, Estim Creat Clear Calc 47.84, Est GFR (MDRD) Af Amer 79, Est GFR (MDRD) Non-Af 66, BUN/Creatinine Ratio 20.7 H, Glucose 115 H, Calcium 9.1 Micro: Microbiology 05/16/23 10:37 Sputum, Expectorated/Coughed Gram Stain - Final 05/16/23 10:37 Sputum, Expectorated/Coughed Respiratory Culture - Preliminary Appears to be normal respiratory chary. Further studies to follow. 05/16/23 10:00 Stool Stool Lactoferrin - Final 05/16/23 10:00 Stool Stool Occult Blood (FLO) - Final 05/11/23 12:55 Blood Culture (Wb) - Anticubital Right Blood Culture - Final No growth in 5 days. 05/11/23 13:00 Blood Culture (Wb) - Left Wrist Blood Culture - Final No growth in 5 days. 05/14/23 10:04 Nasal Secretion MRSA (PCR) - Final 05/13/23 15:06 Stool Enteric Bacteriology - Final 05/13/23 15:06 Stool Clostridioides difficile (PCR) - Final 05/11/23 11:37 Mucosa - Nasopharyngeal SARS-CoV-2, Influenza & RSV (PCR) - Final RSV Radiography Diagnostic Testing: Radiology Impression Chest X-Ray 05/17/23 07:45 IMPRESSION: Severe right lower lobe consolidation and moderate pleural effusion unchanged Electronically Signed: Josh Mason MD at 8:39 EDT Reading Location ID and State: [facility] / [place] , Service support , Chest CT 05/17/23 09:10 IMPRESSION: Interval decrease in size of the previously seen nodule in the right upper lobe. Progressive consolidation in the lateral aspect of the right middle lobe and right lower lobe with atelectasis at the left lung base. Electronically Signed: Bebeto Mariscal MD at 10:33 EDT , Physical Exam Const alert and no apparent distress HEENT head/scalp atraumatic and moist oral mucous membranes Resp normal respiratory effort and no retractions Resp Narrative: diminished BS in right base. Cardio regular rate, regular rhythm, S1 normal heart sound and S2 normal heart sound GI normal to inspection, nondistended, normoactive bowel sounds, soft to palpation and non-tender Extremity Extremity Narrative: TTP over left lateral foot w/o edema. Assessment & Plan Assessment/Plan (1) RSV infection: PLAN: Plan Diarrhea: * resolved Suspected gram negative pneumonia * RML infiltrate * on pip/tazo * complciated by RSV. * ID following * wean oxygen as able Hypoxia * CT showing RLL consolidation. Concerning for ATX. * Add PEP. Add vest therapy. * Added chest physiotherapy. * May need pulmonary input in no improvement. Chronic conditions: * Bipolar disorder, anxiety and multiple medications.: Continue home medications. * Fibromyalgia: Continue home pain medications including Zanaflex and hydrocodone * Hypertension: On lisinopril and Lasix at home, hold the medication for now given the hypokalemia DVT prophylaxis: Lovenox 40 mg subcu daily Charges/Coding Visit Charges Inpatient E&M: [id number] [facility] L2 05/18/23 1243 <Electronically signed by Trey Joe DO> Cosigner Signature (if applicable): CC: ~ Signed [facility] Work Phone: [phone]) 633-524403-15-2024 Miscellaneous Notes* Telephone Encounter - Geoffrey Barboza RN - 05/17/2023 4:24 PM EDT Patient has been identified by name and date of : Yes, Provider My Date 05-17-23 Time 4:25 pm Patient phones for refill(s): Requested Prescriptions Pending Prescriptions Disp Refills meloxicam (MOBIC) 7.5 mg tablet 30 tablet 1 Sig: Take 1 tablet by mouth once daily. Date of last office visit in primary care: 05/02/2023 Date of next office visit in primary care: 06/04/2023 Please advise. Thank you. Geoffrey Barboza RN. [facility] Progress note Author Trey Joe [facility] May 17, 2023 12:55pm Note Date/Time May 17, 2023 7:4 6am [facility] Medical Records Department [address] [place] [address] Progress Note - Hospitalist 05/17/23 0742 MR#: [id number] Acct: [id number] Name: LEYDA LOPEZ Rep #:[id number] : 1960 62 From: Trey Joe DO PCP: SHMUEL PAGAN Status:ADM IN Location: [place] [id number]- Reason for Visit Reason for Visit: Diagnoses Other specified viral diseases (05/11/23) Pneumonia, unspecified organism (05/11/23) Chronic obstructive pulmonary disease, unspecified (05/11/23) Subjective Subjective Still with higher flow oxygen requirements. Objective Data Objective Data Vital Signs: Vital Signs Temp Pulse Resp BP Pulse Ox O2 Del Method O2 Flow Rate 36.6 C 88 16 119/78 94 Nasal Cannula 5 05/17/23 06:00 05/17/23 06:00 05/17/23 06:00 05/17/23 06:00 05/17/23 06:00 05/17/23 06:00 05/17/23 06:00 Oxygen Flow Rate (L/min) 5 Oxygen Delivery Method Nasal Cannula Weight: 53.6 kg Body Mass Index (BMI) 22.3 Intake & Output: Intake and Output for Last 24 Hours 05/15/23 05/16/23 05/17/23 23:59 23:59 23:59 Intake Total 550 / 650 270 / 490 370 / 370 Output Total 1250 / 1250 0 / 0 0 / 0 Balance -700 / -600 270 / 490 370 / 370 Medical Nutrition Assessment Dietitian: Malnutrition Criteria Met Start: 05/12/23 14:43 Freq: Status: Active Protocol: Document 05/12/23 14:44 RMA (Rec: 05/12/23 14:44 RMA [id number]) Nutrition Malnutrition Evidence of Malnutrition Exists Yes Malnutrition (severe): Acute Illness/Injury Evidenced By Suboptimal Energy Intake ( Severe),Weight Loss (Severe) Clinical Problem Acute Disease or Injury Related Malnutrition Etiology severe protein-calorie malnutrition in the context of acute illness related to inadequate oral intake and altered GI function/diarrhea Signs/Symptoms as evidenced by ~5-6% unintentional weight loss x 2 weeks and PO meeting less than 50% estimated nutrition needs x 2 weeks Status Active Problem Recommendation Dietitian Recommendations/Changes Continue liberalized regular diet as tolerated. Will add 240mL ensure clear BID w/ breakfast and dinner tray. Will add magic cup w/ lunch. Adjust ONS as needed to optimize PO and replete energy . Lab / Micro Data 05/16/23 06:40 05/16/23 06:40 Labs: Laboratory Results - last 24 hr 05/16/23 06:40: Sodium 140, Potassium 3.6, Chloride 102, Carbon Dioxide 31.0, Anion Gap 7, BUN 13, Creatinine 0.84, Estim Creat Clear Calc 52.40, Est GFR (MDRD) Af Amer 88, Est GFR (MDRD) Non-Af 73, BUN/Creatinine Ratio 15.4, Glucose 123 H, Calcium 8.9, Total Bilirubin 0.50, AST 42 H, ALT 51, Alkaline [id number], Total Protein 7.1, Albumin 2.2 L, Globulin 4.9 H, Albumin/Globulin Ratio 0.4L Micro: Microbiology 05/16/23 10:00 Stool Stool Lactoferrin - Final 05/16/23 10:00 Stool Stool Occult Blood (FLO) - Final 05/11/23 12:55 Blood Culture (Wb) - Anticubital Right Blood Culture - Final No growth in 5 days. 05/11/23 13:00 Blood Culture (Wb) - Left Wrist Blood Culture - Final No growth in 5 days. 05/16/23 10:37 Sputum, Expectorated/Coughed Gram Stain - Final 05/14/23 10:04 Nasal Secretion MRSA (PCR) - Final 05/13/23 15:06 Stool Enteric Bacteriology - Final 05/13/23 15:06 Stool Clostridioides difficile (PCR) - Final 05/11/23 11:37 Mucosa - Nasopharyngeal SARS-CoV-2, Influenza & RSV (PCR) - Final RSV Physical Exam Const alert and no apparent distress HEENT head/scalp atraumatic and moist oral mucous membranes Resp normal respiratory effort and no retractions Resp Narrative: diminished in RLL. Cardio regular rate, regular rhythm, S1 normal heart sound and S2 normal heart sound GI normal to inspection, nondistended, normoactive bowel sounds, soft to palpation,non-tender and non-distended Extremity normal to inspection Neuro Sensorium / Orientation: awake and alert Psych affect normal Assessment & Plan Assessment/Plan (1) RSV infection: PLAN: Plan Diarrhea: * resolved Suspected gram negative pneumonia * RML infiltrate * on pip/tazo * complciated by RSV. * ID following * wean oxygen as able Hypoxia * CT showing RLL consolidation. Concerning for ATX. * Add PEP. Add vest therapy. Chronic conditions: * Bipolar disorder, anxiety and multiple medications.: Continue home medi cations. * Fibromyalgia: Continue home pain medications including Zanaflex and hydrocodone * Hypertension: On lisinopril and Lasix at home, hold the medication for now given the hypokalemia DVT prophylaxis: Lovenox 40 mg subcu daily Charges/Coding Visit Charges Inpatient E&M: 64782 Subs Hosp L2 05/17/23 1250 <Electronically signed by Trey Joe DO> Cosigner Signature (if applicable): CC: ~ Signed [facility] Work Phone: [phone]) [phone] Progress note Author Trey Joe [facility] May 16, 2023 3:09pm Note Date/Time May 16, 2023 9:2 9am [facility] Medical Records Department [address] [place] [address] Progress Note - Hospitalist 05/16/2323 MR#: [id number] Acct: [id number] Name: LEYDA LOPEZ Rep #:[id number] : 1960 62 From: Trey Joe DO PCP: DALI RICE [employer] Status:ADM IN Location: [facility] [id number] Reason for Visit Reason for Visit: Diagnoses Other specified viral diseases (05/11/23) Pneumonia, unspecified organism (05/11/23) Chronic obstructive pulmonary disease, unspecified (05/11/23) Subjective Subjective Breathing ok. No events overnight. Objective Data Objective Data Vital Signs: Vital Signs Temp Pulse Resp BP Pulse Ox O2 Del Method O2 Flow Rate 36.7 C 98 18 132/85 H 92 Nasal Cannula 5 05/16/23 08:49 05/16/23 08:49 05/16/23 08:49 05/16/23 08:49 05/16/23 08:49 05/16/23 08:49 05/16/23 08:49 Oxygen Flow Rate (L/min) 5 Oxygen Delivery Method Nasal Cannula Weight: 53.6 kg Body Mass Index (BMI) 22.3 Intake & Output: Intake and Output for Last 24 Hours 05/14/23 05/15/23 05/16/23 23:59 23:59 23:59 Intake Total 979 / 979 550 / 650 170 / 170 Output Total 1250 / 1250 0 / 0 Balance 979 / 979 -700 / -600 170 / 170 Medical Nutrition Assessment Dietitian: Malnutrition Criteria Met Start: 05/12/23 14:43 Freq: Status: Active Protocol: Document 05/12/23 14:44 RMA (Rec: 05/12/23 14:44 RMA [id number]) Nutrition Malnutrition Evidence of Malnutrition Exists Yes Malnutrition (severe): Acute Illness/Injury Evidenced By Suboptimal Energy Intake ( Severe),Weight Loss (Severe) Clinical Problem Acute Disease or Injury Related Malnutrition Etiology severe protein-calorie malnutrition in the context of acute illness related to inadequate oral intake and altered GI function/diarrhea Signs/Symptoms as evidenced by ~5-6% unintentional weight loss x 2 weeks and PO meeting less than 50% estimated nutrition needs x 2 weeks Status Active Problem Recommendation Dietitian Recommendations/Changes Continue liberalized regular diet as tolerated. Will add 240mL ensure clear BID w/ breakfast and dinner tray. Will add magic cup w/ lunch. Adjust ONS as needed to optimize PO and replete energy . Lab / Micro Data 05/16/23 06:40 05/16/23 06:40 Labs: Laboratory Results - last 24 hr 05/16/23 06:40: WBC 8.9, RBC 3.87 L, Hgb 11.4 L, Hct 35.1 L, MCV 90.7, MCH 29.5,MCHC 32.5, RDW Std Deviation 43.7, RDW Coeff of Alejandra 13.2, Plt Count 517 H, MPV 9.2, Immature Gran % (Auto) 0.900, Neut % (Auto) 60.7, Lymph % (Auto) 24.9, [place]% (Auto) 9.7, Eos % (Auto) 3.1, Baso % (Auto) 0.7, Absolute Neuts (auto) 5.4, Absolute Lymphs (auto) 2.20, Nucleated RBC % 0, Sodium 140, Potassium 3.6, Chloride 102, Carbon Dioxide 31.0, Anion Gap 7, BUN 13, Creatinine 0.84, Estim Creat Clear Calc 52.40, Est GFR (MDRD) Af Amer 88, Est GFR (MDRD) Non-Af 73, BUN/Creatinine Ratio 15.4, Glucose 123 H, Calcium 8.9, Total Bilirubin 0.50, AST42 H, ALT 51, Alkaline Phosphatase 90, Total Protein 7.1, Albumin 2.2 L, Globulin 4.9 H, Albumin/Globulin Ratio 0.4 L Micro: Microbiology 05/14/23 10:04 Nasal Secretion MRSA (PCR) - Final 05/13/23 15:06 Stool Enteric Bacteriology - Final 05/13/23 15:06 Stool Clostridioides difficile (PCR) - Final 05/11/23 11:37 Mucosa - Nasopharyngeal SARS-CoV-2, Influenza & RSV (PCR) - Final RSV Radiography Diagnostic Testing: Radiology Impression Chest X-Ray 05/14/23 10:43 IMPRESSION: Diffuse airspace opacifications in the right lung field with blunting of the right costophrenic angle suggests a likely combination of infiltrate atelectasis and effusion. Follow-up recommended to ensure resolution Left perihilar atelectasis or early infiltrate without effusion Electronically Signed: Alvino Fisher MD at 13:08 EDT , Physical Exam Const alert and no apparent distress Constitutional Narrative: up in chair. HEENT head/scalp atraumatic and moist oral mucous membranes Resp normal respiratory effort, no retractions, no use of accessory muscles and clearto auscultation bilaterally Cardio regular rate, regular rhythm, S1 normal heart sound and S2 normal heart sound GI normal to inspection, nondistended, normoactive bowel sounds, soft to palpation and non-tender Extremity normal to inspection Assessment & Plan Assessment/Plan (1) RSV infection: PLAN: Plan Diarrhea: * resolved Suspected gram negative pneumonia * RML infiltrate * on pip/tazo * complciated by RSV. * ID following * wean oxygen as able Chronic conditions: * Bipolar disorder, anxiety and multiple medications.: Continue home medications. * Fibromyalgia: Continue home pain medications including Zanaflex and hydrocodone * Hypertension: On lisinopril and Lasix at home, hold the medication for now given the hypokalemia DVT prophylaxis: Lovenox 40 mg subcu daily Charges/Coding Visit Charges Inpatient E&M: 76608 Subs Hosp L2 05/16/23 1509 <Electronically signed by Trey Joe DO> Cosigner Signature (if applicable): CC: ~ Signed [facility] Work Phone: 1(241) 339-142703-14-2024 Progress note Author Merrick White [facility] May 16, 2023 10:36am Note Date/Time May 16, 2023 10: 36am [facility] Medical Records Department [address] [place] [id number] Progress Note - Infect Disease 05/16/23 1034 MR#: [id number] Acct: [id number] Name: LEYDA LOPEZ Rep #:[id number] : 1960 62 From: Merrick gunn MD PCP: DALI RICE, [employer] Status:ADM IN Location: [place] [address] Physical Exam Narrative Feeling better, less dyspnea, no fever. Some sputum. Const alert and no apparent distress Resp Auscultation: rhonchi and wheezes Cardio regular rate and regular rhythm GI soft to palpation, non-tender and non-distended Skin no rashes or lesions noted ID ID: Route of nutrition/ use of supplements: [] Nutritional Intake: [] IV Site: [] Byrne Catheter: [] Assessment & Plan Assessment/Plan (1) RSV infection: (2) Community acquired pneumonia: PLAN: MRSA screen neg. Cont zosyn for now. RSV (+). Fever here may have been related to the RSV, not due to antibiotic failure. Still on 4L, feeling better. No further fever, wbc normal. If continues to improve, ok to stop abx tomorrow. Will follow (3) COPD (chronic obstructive pulmonary disease): 05/16/23 1036 <Electronically signed by Merrick White MD> Cosigner Signature (if applicable): CC: ~ Signed [facility] Work Phone: [phone]) 431-733203-13-2024 Progress note Author Sid Hillman [facility] May 15, 2023 4:59pm Note Date/Time May 15, 2023 4:5 1pm [facility] Medical Records Department [address] [facility] [place] [address] Progress Note - Hospitalist 05/15/23 1645 MR#: [id number] Acct: [id number] Name: LEYDA LOPEZ Rep #:[id number] : 1960 62 From: Sid Rivera PCP: DALI RICE [employer] Status:ADM IN Location: [place] [address] Reason for Visit Reason for Visit: Diagnoses Other specified viral diseases (05/11/23) Pneumonia, unspecified organism (05/11/23) Chronic obstructive pulmonary disease, unspecified (05/11/23) Objective Data Objective Data Vital Signs: Vital Signs Temp Pulse Resp BP Pulse Ox O2 Del Method O2 Flow Rate 98.2 F 97 16 138/87 H 94 Nasal Cannula 2 05/15/23 15:19 05/15/23 15:19 05/15/23 15:19 05/15/23 15:19 05/15/23 15:19 05/15/23 15:19 05/15/23 15:19 Oxygen Flow Rate (L/min) 2 Oxygen Delivery Method Nasal Cannula Weight: 118 lb 2.684 oz Body Mass Index (BMI) 22.3 Intake & Output: Intake and Output for Last 24 Hours 05/13/23 05/14/23 05/15/23 23:59 23:59 23:59 Intake Total 2108 / 2108 979 / 979 500 / 500 Output Total 1250 / 1250 Balance 2108 / 2108 979 / 979 -750 / -750 Medical Nutrition Assessment Dietitian: Malnutrition Criteria Met Start: 05/12/23 14:43 Freq: Status: Active Protocol: Document 05/12/23 14:44 RMA (Rec: 05/12/23 14:44 RMA [id number]) Nutrition Malnutrition Evidence of Malnutrition Exists Yes Malnutrition (severe): Acute Illness/Injury Evidenced By Suboptimal Energy Intake ( Severe),Weight Loss (Severe) Clinical Problem Acute Disease or Injury Related Malnutrition Etiology severe protein-calorie malnutrition in the context of acute illness related to inadequate oral intake and altered GI function/diarrhea Signs/Symptoms as evidenced by ~5-6% unintentional weight loss x 2 weeks and PO meeting less than 50% estimated nutrition needs x 2 weeks Status Active Problem Recommendation Dietitian Recommendations/Changes Continue liberalized regular diet as tolerated. Will add 240mL ensure clear BID w/ breakfast and dinner tray. Will add magic cup w/ lunch. Adjust ONS as needed to optimize PO and replete energy . Lab / Micro Data 05/15/23 06:25 05/15/23 06:25 Labs: Laboratory Results - last 24 hr 05/15/23 06:25: WBC 9.1, RBC 3.79 L, Hgb 11.4 L, Hct 34.1 L, MCV 90.0, MCH 30.1,MCHC 33.4, RDW Std Deviation 43.3, RDW Coeff of Alejandra 13.1, Plt Count 473 H, MPV 9.3, Immature Gran % (Auto) 1.400 H, Neut % (Auto) 71.9 H, Lymph % (Auto) 17.1 L, [place] % (Auto) 8.0, Eos % (Auto) 1.3, Baso % (Auto) 0.3, Absolute Neuts (auto) 6.5, Absolute Lymphs (auto) 1.55, Nucleated RBC % 0, Sodium 138, Potassium 3.3 L, Chloride 100, Carbon Dioxide 31.0, Anion Gap 7, BUN 8, Creatinine 0.64, Estim Creat Clear Calc 68.77, Est GFR (MDRD) Af Amer 121, Est GFR (MDRD) Non-Af 100, BUN/Creatinine Ratio 12.5, Glucose 164 H, Calcium 8.3 L, Total Bilirubin 0.40, AST 41 H, ALT 54, Alkaline Phosphatase 99, Total Protein 6.9, Albumin 2.1 L, Globulin 4.8 H, Albumin/Globulin Ratio 0.4 L Micro: Microbiology 05/14/23 10:04 Nasal Secretion MRSA (PCR) - Final 05/13/23 15:06 Stool Enteric Bacteriology - Final 05/13/23 15:06 Stool Clostridioides difficile (PCR) - Final 05/11/23 11:37 Mucosa - Nasopharyngeal SARS-CoV-2, Influenza & RSV (PCR) - Final RSV Physical Exam Narrative Seen and examined. Did not had fever last night. Shortness of breath and wheezing better. Discussed with ID. Physical exam General: Alert, Oriented x3, Cooperative intermittently confused at night.'s HEENT: Atraumatic, PERRLA, EOMI, Normocephalic Oral: Oral mucosa dry no Gingival or Mucosal Lesions/ Ulcerations Neck: Supple, No JVD, Negative Carotid Bruits Chest wall/Lungs: Air entry diminished in bilateral lung bases. Air entry diminished in right lung base. Crepitations and wheezing better. Cardiovascular: Regular Regular Rhythm, Normal S1, Normal S2, No M/G/R Abdomen: Bowel Sounds Present, Soft to palpation, Non Tender, Non-Distended. Nopalpable mass. : No dysuria. No renal angle tenderness. No suprapubic tenderness. Extremities: No edema, Capillary Refill Less than 3 Seconds Skin: No rashes, No breakdown Musculoskeletal: No Tenderness to Palpation of Joints or Extremities. Muscle strength 4+/5 at knees and hip joints. Neurological: Cranial nerves II-XII grossly intact, DTR 2+/4. No acute focal neurological deficit. Psych/Mental Status: Flat affect. Anxiety and depression multiple antipsychoticand anti-anxiety pills Assessment & Plan Assessment/Plan (1) RSV infection: PLAN: Plan 62-year-old female with a history of fibromyalgia, bipolar disorder, rheumatoid arthritis, presents to the ED with concerns regarding ongoing diarrhea since thelast 10 days, shortness of breath and features of hypokalemia at the time of presentation. Patient also had low-grade fever cough and shortness of breath for 7 to 10 days. 1. Diarrhea: Likely infectious diarrhea given in the setting of acute onset, suspected viral. Supportive IV fluid and correction of electrolytes. Intake and output. Patient is stated she did not had any recent antibiotic. Enteric bacteriology panel, C. difficile stool for Giardia ordered. Soft diet. -CT scan suggestive of thickening of the distal gastric antrum, will consult GI as an outpatient for further evaluation. Could be in the setting of acute gastroenteritis. No features of colitis 05/12: Stool studies are pending probably she did not had bowel movement after being admitted. Diarrhea resolved. 2. Right middle lobe pneumonia and remnant right upper lobe pneumonia due to RSV pneumonia with secondary bacterial infection: Chest CT was individually reviewed. Shows right middle lobe infiltrate with air bronchograms and a small subsegmental atelectasis in the right upper lobe. No mass or pleural effusion. Mediastinum unremarkable. Clinically it seems patient has bacterial superinfection therefore started on IV Unasyn and Zithromax. Patient also states sometimes she chokes/coughs while eating therefore speech therapy to evaluate for possible aspiration. DuoNeb, incentive spirometry, Pep and MucinexDM. Oxygen to keep pulse ox 90%. 05/11: Patient's symptoms are better. But still weak. PT and OT ordered. Continue IV antibiotic. 05/13: Patient symptoms of shortness of breath worse with increasing temperature and leukocytosis and imaging pneumocytes. Repeat chest x-ray was done and compared with the CT chest during admission. Looks worsening of the infiltrate/consolidation in right lung with small effusion. IV antibiotic broadened to IV Zosyn. Discontinue Unasyn. Will request ID consult. Lasix 40 mg IV 1 dose now and then repeat tomorrow. Will reevaluate. 05/14: Discussed with ID. MRSA nasal screen negative therefore vancomycin discontinued. Continue Zosyn. RSV pneumonia with possibility of secondary bacterial pneumonia. 3. Hypokalemia: Related to acute diarrhea and fluid loss. Potassium replacement. 05/12: Serum magnesium 1.8 and normal. Phosphorus 3.1 in normal range. 05/13: Hypokalemia corrected. 05/14 potassium low and on replacement. 4. Bipolar disorder, anxiety and multiple medications.: Continue Lexapro 05/14: The patient looked very anxious and restless. Resume home medication buspirone 5 mg, 3 times daily. On Hydroxyzine 25 mg tid prn, lyrixa 25 mg tid for neuropathic pain in hands 5. Fibromyalgia: Continue home pain medications including Zanaflex and hydrocodone: 6. DVT prophylaxis: Lovenox 40 mg subcu daily 7. Hypertension: On lisinopril and Lasix at home, hold the medication for now given the hypokalemia Clinical Impression(s) from Imaging Studies Abdomen/Pelvis CT 05/11/23 11:27 IMPRESSION: 1. Abnormal intramural edema/thickening of the distal gastric antrum wall extending to the pylorus. EGD will be very helpful for further evaluation. 2. No other suspicious acute abnormality in the abdomen and pelvis. 3. Prominent right lateral lung base atelectasis with air bronchograms. Superimposed pneumonia cannot be excluded. 4. Subpleural confluent infiltrate in the medial aspect of the left lower lobe is most likely pneumonia rather than pulmonary nodule. This is a new finding. Follow-up CT chest in one month will help clarify. 5. Cardiomegaly with new 4 mm right pericardial effusion. Chest CT 05/11/23 12:42 IMPRESSION: 1. Prominent atelectases in the right lateral lung base containing air bronchograms. Superimposed pneumonia can''t be excluded. This accounts for the new mediastinal shift when compared to 07/26/2014. 2. A couple of adjacent nodular-like infiltrates in the central aspect of the right upper lobe. This is most likely pneumonia. This is a new finding. 3. Subsegmental atelectasis in the caudal aspect of the right upper lobe. 4. Previous large pneumonia involving the lower lobes of the groundglass opacities in the upper lobes towards the apices have largely resolved. Pneumonia above are new findings. 5. Increased thoracic kyphosis due to increased number of old anterior wedge compression fractures involving T6 down to T11 vertebral bodies. 6. Cardiomegaly is unchanged but there is new 4 mm small right pericardial effusion. Electronically Signed: Thomas Portillo MD at 13:12 EST , Charges/Coding Visit Charges Inpatient E&M: 46753 Subs Hosp L2 05/15/23 1654 <Electronically signed by Sid Hillman MD> Cosigner Signature (if applicable): CC: ~ Signed [facility] Work Phone: [phone]) [phone] Consult note Author Merrick White [facility] May 15, 2023 1:29pm Note Date/Time May 15, 2023 1:2 9pm [facility] Medical Records Department [address] [place] [address] Consultation - Infectious Dx 05/15/23 1326 MR#: [id number] Acct: [id number] Name: LEYDA LOPEZ Rep #:[id number] : 1960 62 From: Merrick gunn MD PCP: DALI RICE, [employer]-C Status:ADM IN Location: [place] [id number] Assessment & Plan Assessment/Plan (1) RSV infection: (2) Community acquired pneumonia: PLAN: MRSA screen neg. Will stop vanc. Cont zosyn for now. RSV (+). Will follow, thank you (3) COPD (chronic obstructive pulmonary disease): HPI Consult Data Date of Consult: 05/15/23 HPI Narrative Reason for Consultation: fever HPI Narrative: LEYDA LOPEZ, is a 62 F with COPD, presented 05/10 with one week dyspnea, increased cough/sputum, diarrhea, nausea, mild fever/chills. Boyfriend has beensick recently. Came to ED, admitted, RSV (+), azithro/unasyn started. Now abxchange to vanc/zosyn due to fever. Feeling a little better today. Full ROS performed and neg except as noted above. [facility] Medical History Bipolar 1 disorder COPD (chronic obstructive pulmonary disease) Fibromyalgia Hypertension NSTEMI (non-ST elevated myocardial infarction) Rheumatoid arthritis Home Medications albuterol sulfate 90 mcg/actuation aerosol inhaler (ProAir HFA) 2 puff inhalation Q4H PRN PRN Sob &/Or Wheezing 07/26/14 [History Last Taken 06/06/17] lisinopril 40 mg tablet (Zestril) 40 mg PO DAILY bp 07/26/14 [History Last Taken 06/07/17] nitroglycerin 0.4 mg sublingual tablet 0.4 mg sublingual PRN PRN CHEST PAIN 06/04/17 [History Last Taken Unknown] hyoscyamine sulfate 0.125 mg sublingual tablet 0.125 mg sublingual Q8H PRN dyspepsia 10/09/22 [History Last Taken Unknown] amitriptyline 100 mg tablet 100 mg PO QHS depresssion 10/10/22 [History Last Taken Unknown] hydroxyzine HCl 25 mg tablet 50 mg PO Q8H PRN anxiety 10/10/22 [History Last Taken Unknown] lisinopril 20 mg tablet 40 mg PO DAILY BP 10/10/22 [History Last Taken Unknown] meloxicam 7.5 mg tablet 7.5 mg PO DAILY pain 10/10/22 [History Last Taken Unknown] pregabalin 200 mg capsule 200 mg PO Q8H 10/10/22 [History Last Taken Unknown] sumatriptan succinate 50 mg tablet 50 mg PO PRN PRN migraine headache 10/10/22 [History Last Taken Unknown] ondansetron 4 mg disintegrating tablet 4 mg PO Q8H PRN PRN Nausea #14 tabs 11/14/22 [Rx Last Taken Unknown] atorvastatin 40 mg tablet 40 mg PO QHS Cholesterol 05/11/23 [History Last Taken Unknown] buspirone 5 mg tablet 5 mg PO TID Anxiety 05/11/23 [History Last Taken Unknown] dexlansoprazole 60 mg capsule,biphase delayed release 60 mg PO DAILY GERD 05/11/23 [History Last Taken Unknown] escitalopram oxalate 20 mg tablet 20 mg PO DAILY depression 05/11/23 [History Last Taken Unknown] fluticasone propionate 50 mcg/actuation nasal spray,suspension 2 spray intranasal DAILY allergies 05/11/23 [History Last Taken Unknown] furosemide 40 mg tablet 40 mg PO DAILY water pill 05/11/23 [History Last Taken Unknown] hydroxyzine HCl 50 mg tablet 50 mg PO TID Anxiety 05/11/23 [History Last Taken Unknown] pregabalin 25 mg capsule 25 mg PO BID Nerve pain 05/11/23 [History Last Taken Unknown] tizanidine 4 mg tablet 4 mg PO QHS PRN PRN muscle spasm 05/11/23 [History Last Taken Unknown] Allergy/AdvReac Type Severity Reaction Status Date / Time methotrexate Allergy Other Verified 05/11/23 11:21 nadolol Allergy Unknown Verified 05/11/23 11:21 prochlorperazine Allergy PT UNABLE Verified 05/11/23 11:21 TO RESPOND-NEEDS F/U baclofen AdvReac Other Verified 05/11/23 11:21 lorazepam [From Ativan] AdvReac Nausea Verified 11/14/22 10:49 propranolol AdvReac Other Verified 05/11/23 11:21 Social History Smoking Status: Former smoker Physical Exam Const alert and no apparent distress General Appearance: cooperative HEENT normocephalic and head/scalp atraumatic Eyes PERRL and EOMs intact bilaterally Neck supple and No nodes Resp Auscultation: wheezes and diminished lung sounds Cardio regular rate and regular rhythm GI soft to palpation, non-tender and non-distended Extremity General Extremity: Negative for edema Skin no rashes or lesions noted Neuro CN's II-XII intact bilaterally Medical Records Data Medical Nutrition Assessment Dietitian: Malnutrition Criteria Met Start: 05/12/23 14:43 Freq: Status: Active Protocol: Document 05/12/23 14:44 RMA (Rec: 05/12/23 14:44 RMA [id number]) Nutrition Malnutrition Evidence of Malnutrition Exists Yes Malnutrition (severe): Acute Illness/Injury Evidenced By Suboptimal Energy Intake ( Severe),Weight Loss (Severe) Clinical Problem Acute Disease or Injury Related Malnutrition Etiology severe protein-calorie malnutrition in the context of acute illness related to inadequate oral intake and altered GI function/diarrhea Signs/Symptoms as evidenced by ~5-6% unintentional weight loss x 2 weeks and PO meeting less than 50% estimated nutrition needs x 2 weeks Status Active Problem Recommendation Dietitian Recommendations/Changes Continue liberalized regular diet as tolerated. Will add 240mL ensure clear BID w/ breakfast and dinner tray. Will add magic cup w/ lunch. Adjust ONS as needed to optimize PO and replete energy . Lab / Micro Data Attestation: I reviewed the patient's lab results. 05/15/23 06:25 05/15/23 06:25 Labs: Laboratory Results - last 24 hr 05/15/23 06:25: WBC 9.1, RBC 3.79 L, Hgb 11.4 L, Hct 34.1 L, MCV 90.0, MCH 30.1,MCHC 33.4, RDW Std Deviation 43.3, RDW Coeff of Alejandra 13.1, Plt Count 473 H, MPV 9.3, Immature Gran % (Auto) 1.400 H, Neut % (Auto) 71.9 H, Lymph % (Auto) 17.1 L, [place] % (Auto) 8.0, Eos % (Auto) 1.3, Baso % (Auto) 0.3, Absolute Neuts (auto) 6.5, Absolute Lymphs (auto) 1.55, Nucleated RBC % 0, Sodium 138, Potassium 3.3 L, Chloride 100, Carbon Dioxide 31.0, Anion Gap 7, BUN 8, Creatinine 0.64, Estim Creat Clear Calc 68.77, Est GFR (MDRD) Af Amer 121, Est GFR (MDRD) Non-Af 100, BUN/Creatinine Ratio 12.5, Glucose 164 H, Calcium 8.3 L, Total Bilirubin 0.40, AST 41 H, ALT 54, Alkaline Phosphatase 99, Total Protein 6.9, Albumin 2.1 L, Globulin 4.8 H, Albumin/Globulin Ratio 0.4 L Micro: Microbiology 05/14/23 10:04 Nasal Secretion MRSA (PCR) - Final Imaging Radiology Impression Chest X-Ray 05/14/23 10:43 IMPRESSION: Diffuse airspace opacifications in the right lung field with blunting of the right costophrenic angle suggests a likely combination of infiltrate atelectasis and effusion. Follow-up recommended to ensure resolution Left perihilar atelectasis or early infiltrate without effusion Electronically Signed: Alvino Fisher MD at 13:08 EDT Reading Location ID and State: [address] [place] [address] , Service support , 05/15/23 1329 <Electronically signed by Merrick White MD> Cosigner Signature (if applicable): CC: [employer] B[employer]ER-C DALI RICE; Dr. Himanshu Aldana MD; Dr. Merrick White MD~ Signed [facility] Work Phone: [phone] 149-264703-13-2024 Consult note Author Sid Hillman [facility] May 15, 2023 7:00am Note Date/Time May 14, 2023 6:3 5pm [facility] Medical Records Department [address] [place] [address] Pharmacokinetic/Renal -Consult 05/14/23 1833 MR#: [id number] Acct: [id number] Name: LEYDA LOPEZ Joann Rep #:[id number] : 1960 62 From: Arley garcia PCP: SHMUEL PAGAN Status:ADM IN Y Location: [place] [address] Consult Antibiotic Management Pharmacy has been consulted to manage selected antibiotic: Vancomycin Type of Intervention Type of Consult: New start Suspected Infection Suspected Infection: Pneumonia Labs Labs: Sodium 140 mmol/L (136-145) 05/14/23 07:45 Potassium 3.7 mmol/L (3.5-5.1) 05/14/23 07:45 Chloride 106 mmol/L (98-107) 05/14/23 07:45 Carbon Dioxide 27.0 mmol/L (21.0-32.0) 05/14/23 07:45 Anion Gap 7 (5-15) 05/14/23 07:45 BUN 8 mg/dL (7-18) 05/14/23 07:45 Creatinine 0.66 mg/dL (0.55-1.02) 05/14/23 07:45 Est GFR (MDRD) Af Amer 116 mL/min (>60) 05/14/23 07:45 Est GFR (MDRD) Non-Af 96 mL/min (>60) 05/14/23 07:45 BUN/Creatinine Ratio 12.0 RATIO (10-20) 05/14/23 07:45 Glucose 130 mg/dL (74-106) H 05/14/23 07:45 Microbiology Microbiology: Microbiology 05/14/23 10:04 Nasal Secretion MRSA (PCR) - Final 05/13/23 15:06 Stool Enteric Bacteriology - Final 05/13/23 15:06 Stool Clostridioides difficile (PCR) - Final 05/11/23 11:37 Mucosa - Nasopharyngeal SARS-CoV-2, Influenza & RSV (PCR) - Final RSV Dosing Weight Weight used for dosin.6 kg Estimated Creatinine Clearance Estimated Creatinine Clearance: 66.7ML/MIN Goal Trough Goal Trough: 15-20 mcg/mL Pharmacy Plan for Drug Dosing Pharmacy Plan for Drug Dosing: Give initial standard dose of 750mg IV x1, then continue with 500mg IV q12h per [facility] dosing protocol. Will check a trough before the 4th total dose. Pharmacy Service will continue to monitor and adjust dosing as required. Follow-Up Labs Follow-Up Labs: Trough: Vancomycin Date/Time Labs Ordered Labs to be done on [date and time ordered]: 05/16/23 05:30 05/14/23 1835 <Electronically signed by Arley Garcia erg> Date _ Arley Bañuelos 05/15/23 0700 <Electronically signed by Sid Hillman MD> Cosigner Signature (if applicable): Date Sid Hillman MD CC: ~ Signed [facility] Work Phone: [phone]) 713-438703-12-2024 Progress note Author Sid Hillman [facility] May 14, 2023 5:22pm Note Date/Time May 14, 2023 5:0 7pm [facility] Medical Records Department [address] [place] [id number] Progress Note - Hospitalist 05/14/23 1703 MR#: [id number] Acct: [id number] Name: LEYDA LOPEZ Rep #:[id number] : 1960 62 From: Sid Rivera PCP: DON PAGANC Status:ADM IN Location: [place] [address] Reason for Visit Reason for Visit: Diagnoses Other specified viral diseases (05/11/23) Objective Data Objective Data Vital Signs: Vital Signs Temp Pulse Resp BP Pulse Ox O2 Del Method O2 Flow Rate 98.6 F 103 H 18 155/90 H 92 Nasal Cannula 2 05/14/23 08:58 05/14/23 08:58 05/14/23 08:58 05/14/23 08:58 05/14/23 08:58 05/14/23 08:58 05/14/23 08:58 Oxygen Flow Rate (L/min) 2 Oxygen Delivery Method Nasal Cannula Weight: 118 lb 2.684 oz Body Mass Index (BMI) 22.3 Intake & Output: Intake and Output for Last 24 Hours 05/12/23 05/13/23 05/14/23 23:59 23:59 23:59 Intake Total 2107 494 / 494 Balance 2107 494 / 494 Medical Nutrition Assessment Dietitian: Malnutrition Criteria Met Start: 05/12/23 14:43 Freq: Status: Active Protocol: Document 05/12/23 14:44 RMA (Rec: 05/12/23 14:44 [facility] [id number]) Nutrition Malnutrition Evidence of Malnutrition Exists Yes Malnutrition (severe): Acute Illness/Injury Evidenced By Suboptimal Energy Intake ( Severe),Weight Loss (Severe) Clinical Problem Acute Disease or Injury Related Malnutrition Etiology severe protein-calorie malnutrition in the context of acute illness related to inadequate oral intake and altered GI function/diarrhea Signs/Symptoms as evidenced by ~5-6% unintentional weight loss x 2 weeks and PO meeting less than 50% estimated nutrition needs x 2 weeks Status Active Problem Recommendation Dietitian Recommendations/Changes Continue liberalized regular diet as tolerated. Will add 240mL ensure clear BID w/ breakfast and dinner tray. Will add magic cup w/ lunch. Adjust ONS as needed to optimize PO and replete energy . Lab / Micro Data 05/14/23 07:45 05/14/23 07:45 Labs: Laboratory Results - last 24 hr 05/14/23 07:45: WBC 14.1 H, RBC 4.02 L, Hgb 11.9 L, Hct 37.2, MCV 92.5, MCH 29.6, MCHC 32.0, RDW Std Deviation 45.9 H, RDW Coeff of Alejandra 13.3, Plt Count 460 H, MPV 9.8, Immature Gran % (Auto) 1.700 H, Neut % (Auto) 78.2 H, Lymph % (Auto)12.0 L, [place] % (Auto) 6.7, Eos % (Auto) 0.9, Baso % (Auto) 0.5, Absolute Neuts (auto) 11.0 H, Absolute Lymphs (auto) 1.70, Nucleated RBC % 0, Sodium 140, Potassium 3.7, Chloride 106, Carbon Dioxide 27.0, Anion Gap 7, BUN 8, Creatinine0.66, Estim Creat Clear Calc 66.69, Est GFR (MDRD) Af Amer 116, Est GFR (MDRD) Non-Af 96, BUN/Creatinine Ratio 12.0, Glucose 130 H, Calcium 9.4 05/14/23 10:04: MRSA (PCR) Cancelled Micro: Microbiology 05/14/23 10:04 Nasal Secretion MRSA (PCR) - Final 05/13/23 15:06 Stool Enteric Bacteriology - Final 05/13/23 15:06 Stool Clostridioides difficile (PCR) - Final 05/11/23 11:37 Mucosa - Nasopharyngeal SARS-CoV-2, Influenza & RSV (PCR) - Final RSV Radiography Diagnostic Testing: Radiology Impression Chest X-Ray 05/14/23 10:43 IMPRESSION: Diffuse airspace opacifications in the right lung field with blunting of the right costophrenic angle suggests a likely combination of infiltrate atelectasis and effusion. Follow-up recommended to ensure resolution Left perihilar atelectasis or early infiltrate without effusion Electronically Signed: Alvino Fisher MD at 13:08 EDT , Physical Exam Narrative Seen and examined. Overnight patient spiked fever Tmax 100.5 Fahrenheit. Lab work culture shows more than 1% immature granulocytes with increasing leukocytosis. Repeat chest x-ray done. Patient looks more short of breath. Patient was admitted with shortness of breath for 1 week along with chills and acough and low-grade fever. Initially dry cough then having greenish thick sputum. She also has diarrhea about 7 to 10 days about 4-5 BMs per day occasional abdominal cramping Physical exam General: Alert, Oriented x3, Cooperative HEENT: Atraumatic, PERRLA, EOMI, Normocephalic Oral: Oral mucosa dry no Gingival or Mucosal Lesions/ Ulcerations Neck: Supple, No JVD, Negative Carotid Bruits Chest wall/Lungs: Air entry diminished in bilateral lung bases. Air entry diminished in right lung base. Bilateral coarse crepitations and wheezing. Cardiovascular: Regular Regular Rhythm, Normal S1, Normal S2, No M/G/R Abdomen: Bowel Sounds Present, Soft to palpation, Non Tender, Non-Distended. Nopalpable mass. : No dysuria. No renal angle tenderness. No suprapubic tenderness. Extremities: No edema, Capillary Refill Less than 3 Seconds Skin: No rashes, No breakdown Musculoskeletal: No Tenderness to Palpation of Joints or Extremities. Muscle strength 4+/5 at knees and hip joints. Neurological: Cranial nerves II-XII grossly intact, DTR 2+/4. No acute focal neurological deficit. Psych/Mental Status: Flat affect. Const alert and oriented x3 Constitutional Narrative: Malnourished, Orientation / Consciousness: lethargic HEENT normocephalic Eyes PERRL Neck no lymphadenopathy Resp normal respiratory effort Cardio regular rate and regular rhythm GI normal to inspection, nondistended, normoactive bowel sounds and soft to palpation Extremity normal to inspection, full ROM and no clubbing, cyanosis or edema Neuro oriented x3, CN's II-XII intact bilaterally and moves all extremities Psych affect normal Assessment & Plan Assessment/Plan (1) RSV infection: PLAN: Plan 62-year-old female with a history of fibromyalgia, bipolar disorder, rheumatoid arthritis, presents to the ED with concerns regarding ongoing diarrhea since thelast 10 days, shortness of breath and features of hypokalemia at the time of presentation. Patient also had low-grade fever cough and shortness of breath for 7 to 10 days. 1. Diarrhea: Likely infectious diarrhea given in the setting of acute onset, suspected viral. Supportive IV fluid and correction of electrolytes. Intake and output. Patient is stated she did not had any recent antibiotic. Enteric bacteriology panel, C. difficile stool for Giardia ordered. Soft diet. -CT scan suggestive of thickening of the distal gastric antrum, will consult GI as an outpatient for further evaluation. Could be in the setting of acute gastroenteritis. No features of colitis 05/12: Stool studies are pending probably she did not had bowel movement after being admitted. Diarrhea resolved. 2. Right middle lobe pneumonia and remnant right upper lobe pneumonia due to RSV pneumonia with secondary bacterial infection: Chest CT was individually reviewed. Shows right middle lobe infiltrate with air bronchograms and a small subsegmental atelectasis in the right upper lobe. No mass or pleural effusion. Mediastinum unremarkable. Clinically it seems patient has bacterial superinfection therefore started on IV Unasyn and Zithromax. Patient also states sometimes she chokes/coughs while eating therefore speech therapy to evaluate for possible aspiration. DuoNeb, incentive spirometry, Pep and MucinexDM. Oxygen to keep pulse ox 90%. 05/11: Patient's symptoms are better. But still weak. PT and OT ordered. Continue IV antibiotic. 05/13: Patient symptoms of shortness of breath worse with increasing temperature and leukocytosis and imaging pneumocytes. Repeat chest x-ray was done and compared with the CT chest during admission. Looks worsening of the infiltrate/consolidation in right lung with small effusion. IV antibiotic broadened to IV Zosyn. Discontinue Unasyn. Will request ID consult. Lasix 40 mg IV 1 dose now and then repeat tomorrow. Will reevaluate. 3. Hypokalemia: Related to acute diarrhea and fluid loss. Potassium replacement. 05/12: Serum magnesium 1.8 and normal. Phosphorus 3.1 in normal range. 05/13: Hypokalemia corrected. 4. Bipolar disorder: Continue Lexapro 5. Fibromyalgia: Continue home pain medications including Zanaflex and hydrocodone 6. DVT prophylaxis: Lovenox 40 mg subcu daily 7. Hypertension: On lisinopril and Lasix at home, hold the medication for now given the hypokalemia Clinical Impression(s) from Imaging Studies Abdomen/Pelvis CT 05/11/23 11:27 IMPRESSION: 1. Abnormal intramural edema/thickening of the distal gastric antrum wall extending to the pylorus. EGD will be very helpful for further evaluation. 2. No other suspicious acute abnormality in the abdomen and pelvis. 3. Prominent right lateral lung base atelectasis with air bronchograms. Superimposed pneumonia cannot be excluded. 4. Subpleural confluent infiltrate in the medial aspect of the left lower lobe is most likely pneumonia rather than pulmonary nodule. This is a new finding. Follow-up CT chest in one month will help clarify. 5. Cardiomegaly with new 4 mm right pericardial effusion. Chest CT 05/11/23 12:42 IMPRESSION: 1. Prominent atelectases in the right lateral lung base containing air bronchograms. Superimposed pneumonia can''t be excluded. This accounts for the new mediastinal shift when compared to 07/26/2014. 2. A couple of adjacent nodular-like infiltrates in the central aspect of the right upper lobe. This is most likely pneumonia. This is a new finding. 3. Subsegmental atelectasis in the caudal aspect of the right upper lobe. 4. Previous large pneumonia involving the lower lobes of the groundglass opacities in the upper lobes towards the apices have largely resolved. Pneumonia above are new findings. 5. Increased thoracic kyphosis due to increased number of old anterior wedge compression fractures involving T6 down to T11 vertebral bodies. 6. Cardiomegaly is unchanged but there is new 4 mm small right pericardial effusion. Electronically Signed: Thomas Portillo MD at 13:12 EST , Charges/Coding Addendum Addendum: Total time of the visit including total time spent in counseling or coordinationof care, (more than 50% of the total time, spent in obtaining medical information from nurses and other ancillary care providers,explaining to the patient about labs, imaging, diagnosis and management of active complex medical conditions), repeat chest x-ray, ID consult request, review of labs and imaging and worsening of pneumonia is 40 minutes. Visit Charges Inpatient E&M: 24724 Subs Hosp L3 05/14/23 1708 <Electronically signed by Sid Hillman MD> Cosigner Signature (if applicable): CC: ~ Signed ADDENDUM by Dr. Sid Hillman MD on 05/14/23 at 1722 Addendum Vancomycin stopped ordered. Pharmacy to monitor trough and dosing. ID consulted. 05/14/231721<Electronically signed by Sid Hillman MD> Cosigner Signature (if applicable): cc: ~* Signed [facility] Work Phone: [phone] 224-427403-11-2024 Progress note Author Sid Hillman [facility] May 13, 2023 2:49pm Note Date/Time May 13, 2023 2:4 9pm [facility] Medical Records Department [address] [place] [address] Progress Note - Hospitalist 05/13/23 1444 MR#: [id number] Acct: [id number] Name: JOHNLEYDA Joann Rep #:[id number] : 1960 62 From: Sid Rivera PCP: DALI RICE, [employer] B[employer]ER-C Status:ADM IN Location: [place] [address] Reason for Visit Reason for Visit: Diagnoses Other specified viral diseases (05/11/23) Objective Data Objective Data Vital Signs: Vital Signs Temp Pulse Resp BP Pulse Ox O2 Del Method O2 Flow Rate 99.1 F 87 16 126/78 H 100 Nasal Cannula 2 05/13/23 08:42 05/13/23 08:42 05/13/23 08:42 05/13/23 08:42 05/13/23 08:42 05/13/23 08:42 05/13/23 08:42 Oxygen Flow Rate (L/min) 2 Oxygen Delivery Method Nasal Cannula Weight: 118 lb 2.684 oz Body Mass Index (BMI) 22.3 Intake & Output: Intake and Output for Last 24 Hours 05/11/23 05/12/23 05/13/23 22:59 23:59 23:59 Intake Total 1556 / 1556 Balance 1556 / 1556 Medical Nutrition Assessment Dietitian: Malnutrition Criteria Met Start: 05/12/23 14:43 Freq: Status: Active Protocol: Document 05/12/23 14:44 RMA (Rec: 05/12/23 14:44 RMA [id number]) Nutrition Malnutrition Evidence of Malnutrition Exists Yes Malnutrition (severe): Acute Illness/Injury Evidenced By Suboptimal Energy Intake ( Severe),Weight Loss (Severe) Clinical Problem Acute Disease or Injury Related Malnutrition Etiology severe protein-calorie malnutrition in the context of acute illness related to inadequate oral intake and altered GI function/diarrhea Signs/Symptoms as evidenced by ~5-6% unintentional weight loss x 2 weeks and PO meeting less than 50% estimated nutrition needs x 2 weeks Status Active Problem Recommendation Dietitian Recommendations/Changes Continue liberalized regular diet as tolerated. Will add 240mL ensure clear BID w/ breakfast and dinner tray. Will add magic cup w/ lunch. Adjust ONS as needed to optimize PO and replete energy . Lab / Micro Data 05/13/23 04:50 05/13/23 04:50 Labs: Laboratory Results - last 24 hr 05/13/23 04:50: WBC 12.3 H, RBC 3.64 L, Hgb 10.7 L, Hct 33.0 L, MCV 90.7, MCH 29.4, MCHC 32.4, RDW Std Deviation 44.5 H, RDW Coeff of Alejandra 13.3, Plt Count 351,MPV 9.5, Immature Gran % (Auto) 1.800 H, Neut % (Auto) 77.1 H, Lymph % (Auto) 12.0 L, [place] % (Auto) 7.4, Eos % (Auto) 1.1, Baso % (Auto) 0.6, Absolute Neuts (auto) 9.5 H, Absolute Lymphs (auto) 1.47, Nucleated RBC % 0, Sodium 140, Potassium 3.3 L, Chloride 106, Carbon Dioxide 28.0, Anion Gap 6, BUN 12, Creatinine 0.70, Estim Creat Clear Calc 62.88, Est GFR (MDRD) Af Amer 110, Est GFR (MDRD) Non-Af 91, BUN/Creatinine Ratio 17.2, Glucose 119 H, Calcium 8.7, Phosphorus 3.1, Magnesium 1.8 Micro: Microbiology 05/11/23 11:37 Mucosa - Nasopharyngeal SARS-CoV-2, Influenza & RSV (PCR) - Final RSV Physical Exam Narrative Seen and examined. Patient feels improvement in shortness of breath and cough. Patient was admitted with shortness of breath for 1 week along with chills and acough and low-grade fever. Initially dry cough then having greenish thick sputum. She also has diarrhea about 7 to 10 days about 4-5 BMs per day occasional abdominal cramping Physical exam General: Alert, Oriented x3, Cooperative HEENT: Atraumatic, PERRLA, EOMI, Normocephalic Oral: Oral mucosa dry no Gingival or Mucosal Lesions/ Ulcerations Neck: Supple, No JVD, Negative Carotid Bruits Chest wall/Lungs: Air entry diminished in bilateral lung bases. Cardiovascular: Regular r Wheezing and rhonchi are much decreased. On 2 L of oxygen.ate, Regular Rhythm, Normal S1, Normal S2, No M/G/R Abdomen: Bowel Sounds Present, Soft to palpation, Non Tender, Non-Distended. Nopalpable mass. : No dysuria. No renal angle tenderness. No suprapubic tenderness. Extremities: No edema, Capillary Refill Less than 3 Seconds Skin: No rashes, No breakdown Musculoskeletal: No Tenderness to Palpation of Joints or Extremities. Muscle strength 4+/5 at knees and hip joints. Neurological: Cranial nerves II-XII grossly intact, DTR 2+/4. No acute focal neurological deficit. Psych/Mental Status: Flat affect. Assessment & Plan Assessment/Plan (1) RSV infection: PLAN: Plan 62-year-old female with a history of fibromyalgia, bipolar disorder, rheumatoid arthritis, presents to the ED with concerns regarding ongoing diarrhea since thelast 10 days, shortness of breath and features of hypokalemia at the time of presentation. Patient also had low-grade fever cough and shortness of breath for 7 to 10 days. 1. Diarrhea: Likely infectious diarrhea given in the setting of acute onset, suspected viral. Supportive IV fluid and correction of electrolytes. Intake and output. Patient is stated she did not had any recent antibiotic. Enteric bacteriology panel, C. difficile stool for Giardia ordered. Soft diet. -CT scan suggestive of thickening of the distal gastric antrum, will consult GI as an outpatient for further evaluation. Could be in the setting of acute gastroenteritis. No features of colitis 05/12: Stool studies are pending probably she did not had bowel movement after being admitted. Diarrhea resolved. 2. Right middle lobe pneumonia and remnant right upper lobe pneumonia due to RSV pneumonia with secondary bacterial infection: Chest CT was individually reviewed. Shows right middle lobe infiltrate with air bronchograms and a small subsegmental atelectasis in the right upper lobe. No mass or pleural effusion. Mediastinum unremarkable. Clinically it seems patient has bacterial superinfection therefore started on IV Unasyn and Zithromax. Patient also states sometimes she chokes/coughs while eating therefore speech therapy to evaluate for possible aspiration. DuoNeb, incentive spirometry, Pep and MucinexDM. Oxygen to keep pulse ox 90%. 05/08: Patient's symptoms are better. But still weak. PT and OT ordered. Continue IV antibiotic. 3. Hypokalemia: Related to acute diarrhea and fluid loss. Potassium replacement. 05/12: Serum magnesium 1.8 and normal. Phosphorus 3.1 in normal range. 4. Bipolar disorder: Continue Lexapro 5. Fibromyalgia: Continue home pain medications including Zanaflex and hydrocodone 6. DVT prophylaxis: Lovenox 40 mg subcu daily 7. Hypertension: On lisinopril and Lasix at home, hold the medication for now given the hypokalemia Clinical Impression(s) from Imaging Studies Abdomen/Pelvis CT 05/11/23 11:27 IMPRESSION: 1. Abnormal intramural edema/thickening of the distal gastric antrum wall extending to the pylorus. EGD will be very helpful for further evaluation. 2. No other suspicious acute abnormality in the abdomen and pelvis. 3. Prominent right lateral lung base atelectasis with air bronchograms. Superimposed pneumonia cannot be excluded. 4. Subpleural confluent infiltrate in the medial aspect of the left lower lobe is most likely pneumonia rather than pulmonary nodule. This is a new finding. Follow-up CT chest in one month will help clarify. 5. Cardiomegaly with new 4 mm right pericardial effusion. Chest CT 05/11/23 12:42 IMPRESSION: 1. Prominent atelectases in the right lateral lung base containing air bronchograms. Superimposed pneumonia can''t be excluded. This accounts for the new mediastinal shift when compared to 07/26/2014. 2. A couple of adjacent nodular-like infiltrates in the central aspect of the right upper lobe. This is most likely pneumonia. This is a new finding. 3. Subsegmental atelectasis in the caudal aspect of the right upper lobe. 4. Previous large pneumonia involving the lower lobes of the groundglass opacities in the upper lobes towards the apices have largely resolved. Pneumonia above are new findings. 5. Increased thoracic kyphosis due to increased number of old anterior wedge compression fractures involving T6 down to T11 vertebral bodies. 6. Cardiomegaly is unchanged but there is new 4 mm small right pericardial effusion. Electronically Signed: Thomas Portillo MD at 13:12 EST Reading Location ID and State: [address] [place] [address] , Service support , Charges/Coding Visit Charges Inpatient E&M: 12035 Subs Hosp L2 05/13/23 5169 <Electronically signed by Sid Hillman MD> Cosigner Signature (if applicable): CC: ~ Signed [facility] Work Phone: [phone]) [id number] Progress note Author Sid Hillman [facility] May 12, 2023 2:40pm Note Date/Time May 12, 2023 10: 51am [facility] Medical Records Department [address] [place] [id number] Progress Note - Hospitalist 05/12/23 1049 MR#: [id number] Acct: [id number] Name: LEYDA LOPEZ Rep #:[id number] : 1960 62 From: Sid Rivera PCP: DALI RICE [employer] [facility] Status:ADM IN Location: [facility] [id number] Reason for Visit Reason for Visit: Diagnoses Other specified viral diseases (05/11/23) Objective Data Objective Data Vital Signs: Vital Signs Temp Pulse Resp BP Pulse Ox O2 Del Method O2 Flow Rate 97.8 F 84 16 150/97 H 92 Nasal Cannula 2 05/12/23 08:21 05/12/23 08:21 05/12/23 08:21 05/12/23 08:21 05/12/23 09:14 05/12/23 09:14 05/12/23 09:14 Oxygen Flow Rate (L/min) 2 Oxygen Delivery Method Nasal Cannula Weight: 118 lb 2.684 oz Body Mass Index (BMI) 22.3 Intake & Output: Intake and Output for Last 24 Hours 05/10/23 05/11/23 05/13/23 23:59 23:59 00:59 Intake Total 2054 650 / 650 Balance 2054 650 / 650 Lab / Micro Data 05/12/23 05:51 05/12/23 05:51 Labs: Laboratory Results - last 24 hr 05/11/23 10:59: WBC 13.4 H, RBC 4.74, Hgb 14.0, Hct 41.7, MCV 88.0, MCH 29.5, MCHC 33.6, RDW Std Deviation 42.7, RDW Coeff of Alejandra 13.2, Plt Count 394, MPV 9.4, Immature Gran % (Auto) 2.000 H, Neut % (Auto) 78.4 H, Lymph % (Auto) 10.8 L, [place] % (Auto) 8.6, Eos % (Auto) 0.0, Baso % (Auto) 0.2, Absolute Neuts (auto) 10.5 H, Absolute Lymphs (auto) 1.45, Nucleated RBC % 0, Differential Comment SCANNED, Sodium 136, Potassium 2.8 L, Chloride 96 L, Carbon Dioxide 28.0, Anion Gap 12, BUN 11, Creatinine 0.82, Estim Creat Clear Calc 56.58, Est GFR (MDRD) Af Amer 90, Est GFR (MDRD) Non-Af 75, BUN/Creatinine Ratio 13.3, Glucose 136 H, Lactic Acid 2.4 H*, Calcium 9.4, Total Bilirubin 0.60, AST 41 H, ALT 22, Alkaline Phosphatase 135 H, Total Protein 8.4 H, Albumin 3.0 L, Globulin 5.4 H, Albumin/Globulin Ratio 0.6 L, Lipase 14 05/11/23 12:55: Urine Color Yellow, Urine Clarity Clear, Urine pH 5.0, Ur Specific [place] 1.010, Urine Protein 100 H, Urine Glucose (UA) Normal, Urine Ketones 50 H, Urine Occult Blood 10 H, Urine Nitrite Negative, Urine Bilirubin Negative, Urine Urobilinogen Normal, Ur Leukocyte Esterase Negative, Urine RBC 0SEEN, Urine WBC 0 SEEN, Ur Squamous Epith Cells 0 SEEN, Amorphous Sediment 1+, Urine Bacteria 0 SEEN, Urine Mucus 0 SEEN 05/11/23 16:09: Lactic Acid 1.4 05/11/23 18:44: Potassium 3.5 05/12/23 05:51: WBC 13.5 H, RBC 4.20, Hgb 12.6, Hct 37.4, MCV 89.0, MCH 30.0, MCHC 33.7, RDW Std Deviation 43.8, RDW Coeff of Alejandra 13.3, Plt Count 402, MPV 9.9, Immature Gran % (Auto) 1.900 H, Neut % (Auto) 73.9 H, Lymph % (Auto) 15.1 L, [place] % (Auto) 8.0, Eos % (Auto) 0.4, Baso % (Auto) 0.7, Absolute Neuts (auto) 10.0 H, Absolute Lymphs (auto) 2.05, Nucleated RBC % 0, PT 16.1 H, INR 1.3, Sodium 138, Potassium 3.4 L, Chloride 106, Carbon Dioxide 25.0, Anion Gap 7, BUN15, Creatinine 0.79, Estim Creat Clear Calc 55.72, Est GFR (MDRD) Af Amer 95, Est GFR (MDRD) Non-Af 78, BUN/Creatinine Ratio 19.0, Glucose 124 H, Calcium 9.1,Phosphorus 2.4 L, Magnesium 1.8, Total Bilirubin 0.60, Direct Bilirubin 0.13, AST 48 H, ALT 27, Alkaline Phosphatase 120 H, Total Protein 7.5, Albumin 2.6 L, Globulin 4.9 H, Albumin/Globulin Ratio 0.5 L, TSH 1.33 Micro: Microbiology 05/11/23 11:37 Mucosa - Nasopharyngeal SARS-CoV-2, Influenza & RSV (PCR) - Final RSV Radiography Diagnostic Testing: Radiology Impression Abdomen/Pelvis CT 05/11/23 11:27 IMPRESSION: 1. Abnormal intramural edema/thickening of the distal gastric antrum wall extending to the pylorus. EGD will be very helpful for further evaluation. 2. No other suspicious acute abnormality in the abdomen and pelvis. 3. Prominent right lateral lung base atelectasis with air bronchograms. Superimposed pneumonia cannot be excluded. 4. Subpleural confluent infiltrate in the medial aspect of the left lower lobe is most likely pneumonia rather than pulmonary nodule. This is a new finding. Follow-up CT chest in one month will help clarify. 5. Cardiomegaly with new 4 mm right pericardial effusion. Chest CT 05/11/23 12:42 IMPRESSION: 1. Prominent atelectases in the right lateral lung base containing air bronchograms. Superimposed pneumonia can''t be excluded. This accounts for the new mediastinal shift when compared to 07/26/2014. 2. A couple of adjacent nodular-like infiltrates in the central aspect of the right upper lobe. This is most likely pneumonia. This is a new finding. 3. Subsegmental atelectasis in the caudal aspect of the right upper lobe. 4. Previous large pneumonia involving the lower lobes of the groundglass opacities in the upper lobes towards the apices have largely resolved. Pneumonia above are new findings. 5. Increased thoracic kyphosis due to increased number of old anterior wedge compression fractures involving T6 down to T11 vertebral bodies. 6. Cardiomegaly is unchanged but there is new 4 mm small right pericardial effusion. Electronically Signed: Thomas Portillo MD at 13:12 EST , Physical Exam Narrative Seen and examined. Patient is stated that she started having shortness of breath for 1 week along with chills and a cough and low-grade fever. Initially dry cough then having greenish thick sputum. She denied having other URI symptoms including sinus congestion nasal dripping or postnasal drip or sore throat. She also has diarrhea about 7 to 10 days about 4-5 BMs per day occasional abdominal cramping Physical exam General: Alert, Oriented x3, Cooperative HEENT: Atraumatic, PERRLA, EOMI, Normocephalic Oral: Oral mucosa dry no Gingival or Mucosal Lesions/ Ulcerations Neck: Supple, No JVD, Negative Carotid Bruits Chest wall/Lungs: Air entry diminished in bilateral lung bases. Bilateral coarse rhonchi and mild wheezing. Cardiovascular: Regular rate, Regular Rhythm, Normal S1, Normal S2, No M/G/R Abdomen: Bowel Sounds Present, Soft to palpation, Non Tender, Non-Distended. Nopalpable mass. : No dysuria. No renal angle tenderness. No suprapubic tenderness. Extremities: No edema, Capillary Refill Less than 3 Seconds Skin: No rashes, No breakdown Musculoskeletal: No Tenderness to Palpation of Joints or Extremities Neurological: Cranial nerves II-XII grossly intact, DTR 2+/4. No acute focal neurological deficit. Psych/Mental Status: Flat affect. Assessment & Plan Assessment/Plan (1) RSV infection: PLAN: Plan 62-year-old female with a history of fibromyalgia, bipolar disorder, rheumatoid arthritis, presents to the ED with concerns regarding ongoing diarrhea since thelast 10 days, shortness of breath and features of hypokalemia at the time of presentation. Patient also had low-grade fever cough and shortness of breath for 7 to 10 days. 1. Diarrhea: Likely infectious diarrhea given in the setting of acute onset, suspected viral. Supportive IV fluid and correction of electrolytes. Intake and output. Patient is stated she did not had any recent antibiotic. Enteric bacteriology panel, C. difficile stool for Giardia ordered. Soft diet. -CT scan suggestive of thickening of the distal gastric antrum, will consult GI as an outpatient for further evaluation. Could be in the setting of acute gastroenteritis. No features of colitis 2. Right middle lobe pneumonia and remnant right upper lobe pneumonia probably viral with secondary bacterial infection: Chest CT was individually reviewed. Shows right middle lobe infiltrate with air bronchograms and a small subsegmental atelectasis in the right upper lobe. No mass or pleural effusion. Mediastinum unremarkable. Clinically it seems patient has bacterial superinfection therefore started on IV Unasyn and Zithromax. Patient also states sometimes she chokes/coughs while eating therefore speech therapy to evaluate for possible aspiration. DuoNeb, incentive spirometry, Pep and MucinexDM. Oxygen to keep pulse ox 90%. 3. Hypokalemia: Related to acute diarrhea and fluid loss. Potassium replacement. Monitor magnesium and phosphorus. 4. Bipolar disorder: Continue Lexapro 5. Fibromyalgia: Continue home pain medications including Zanaflex and hydrocodone 6. DVT prophylaxis: Lovenox 40 mg subcu daily 7. Hypertension: On lisinopril and Lasix at home, hold the medication for now given the hypokalemia Microbiology Past 72 Hours 05/11/23 11:37 Mucosa - Nasopharyngeal SARS-CoV-2, Influenza & RSV (PCR) - Final RSV Laboratory Results 05/11/23 12:55: Urine Color Yellow, Urine Clarity Clear, Urine pH 5.0, Ur Specific [place] 1.010, Urine Protein 100 H, Urine Glucose (UA) Normal, Urine Ketones 50 H, Urine Occult Blood 10 H, Urine Nitrite Negative, Urine Bilirubin Negative, Urine Urobilinogen Normal, Ur Leukocyte Esterase Negative, Urine RBC 0SEEN, Urine WBC 0 SEEN, Ur Squamous Epith Cells 0 SEEN, Amorphous Sediment 1+, Urine Bacteria 0 SEEN, Urine Mucus 0 SEEN 05/11/23 16:09: Lactic Acid 1.4 05/11/23 18:44: Potassium 3.5 05/12/23 05:51: WBC 13.5 H, RBC 4.20, Hgb 12.6, Hct 37.4, MCV 89.0, MCH 30.0, MCHC 33.7, RDW Std Deviation 43.8, RDW Coeff of Alejandra 13.3, Plt Count 402, MPV 9.9, Immature Gran % (Auto) 1.900 H, Neut % (Auto) 73.9 H, Lymph % (Auto) 15.1 L, [place] % (Auto) 8.0, Eos % (Auto) 0.4, Baso % (Auto) 0.7, Absolute Neuts (auto) 10.0 H, Absolute Lymphs (auto) 2.05, Nucleated RBC % 0, PT 16.1 H, INR 1.3, Sodium 138, Potassium 3.4 L, Chloride 106, Carbon Dioxide 25.0, Anion Gap 7, BUN15, Creatinine 0.79, Estim Creat Clear Calc 55.72, Est GFR (MDRD) Af Amer 95, Est GFR (MDRD) Non-Af 78, BUN/Creatinine Ratio 19.0, Glucose 124 H, Calcium 9.1,Phosphorus 2.4 L, Magnesium 1.8, Total Bilirubin 0.60, Direct Bilirubin 0.13, AST 48 H, ALT 27, Alkaline Phosphatase 120 H, Total Protein 7.5, Albumin 2.6 L, Globulin 4.9 H, Albumin/Globulin Ratio 0.5 L, TSH 1.33 Clinical Impression(s) from Imaging Studies Abdomen/Pelvis CT 05/11/23 11:27 IMPRESSION: 1. Abnormal intramural edema/thickening of the distal gastric antrum wall extending to the pylorus. EGD will be very helpful for further evaluation. 2. No other suspicious acute abnormality in the abdomen and pelvis. 3. Prominent right lateral lung base atelectasis with air bronchograms. Superimposed pneumonia cannot be excluded. 4. Subpleural confluent infiltrate in the medial aspect of the left lower lobe is most likely pneumonia rather than pulmonary nodule. This is a new finding. Follow-up CT chest in one month will help clarify. 5. Cardiomegaly with new 4 mm right pericardial effusion. Chest CT 05/11/23 12:42 IMPRESSION: 1. Prominent atelectases in the right lateral lung base containing air bronchograms. Superimposed pneumonia can''t be excluded. This accounts for the new mediastinal shift when compared to 07/26/2014. 2. A couple of adjacent nodular-like infiltrates in the central aspect of the right upper lobe. This is most likely pneumonia. This is a new finding. 3. Subsegmental atelectasis in the caudal aspect of the right upper lobe. 4. Previous large pneumonia involving the lower lobes of the groundglass opacities in the upper lobes towards the apices have largely resolved. Pneumonia above are new findings. 5. Increased thoracic kyphosis due to increased number of old anterior wedge compression fractures involving T6 down to T11 vertebral bodies. 6. Cardiomegaly is unchanged but there is new 4 mm small right pericardial effusion. Electronically Signed: Thomas Portillo MD at 13:12 EST , Charges/Coding Visit Charges Inpatient E&M: 02171 Subs Hosp L2 05/12/23 1440 <Electronically signed by Sid Hillman MD> Cosigner Signature (if applicable): CC: ~ Signed [facility] Work Phone: [phone]) 443-545903-09-2024 History and physical note Author Himanshu Aldana [facility] May 11, 2023 5:56pm Note Date/Time May 11, 2023 5:56 pm [facility] Medical Records Department [address] [place] [address] [place] [address] H&P Exam - Hospitalist 05/11/23 1743 MR#: [id number] Acct: [id number] Name: LEYDA LOPEZ Rep #:[id number] : 1960 62 From: Himanshu Aldana MD PCP: DALI RICE, [employer] Status:ADM IN Location: [place] [address] HPI - General General Date of Admission: 05/11/23 Date of Service: 05/11/23 Chief Complaint: Acute diarrhea with shortness of breath HPI Narrative LEYDA LOPEZ, with past medical history of COPD, NSTEMI, fibromyalgia, rheumatoid arthritis, hypertension, bipolar disorder, is a 62 F who presents ongoing diarrhea since the last 7 to 10 days, and associated shortness of breath. Diarrhea, change in stool consistency and about 4-5 bowel movements per day since the last 7 to 10 days. No blood associated. Occasional abdominal pain and mild fever noted. Reports associated anorexia. Has been feeling progressively weak since the initiation of diarrhea and has no significant shortness of breath and easy fatigability with minor movements. Does not smoke nicotine, occasional marijuana use, intermittent alcohol use. [facility] Medical History Bipolar 1 disorder COPD (chronic obstructive pulmonary disease) Fibromyalgia Hypertension NSTEMI (non-ST elevated myocardial infarction) Rheumatoid arthritis Home Medications albuterol sulfate 90 mcg/actuation aerosol inhaler (ProAir HFA) 2 puff inhalation Q4H PRN PRN Sob &/Or Wheezing 07/26/14 [History Last Taken 06/06/17] lisinopril 40 mg tablet (Zestril) 40 mg PO DAILY bp 07/26/14 [History Last Taken 06/07/17] nitroglycerin 0.4 mg sublingual tablet 0.4 mg sublingual PRN PRN CHEST PAIN 06/04/17 [History Last Taken Unknown] hyoscyamine sulfate 0.125 mg sublingual tablet 0.125 mg sublingual Q8H PRN dyspepsia 10/09/22 [History Last Taken Unknown] amitriptyline 100 mg tablet 100 mg PO QHS depresssion 10/10/22 [History Last Taken Unknown] hydroxyzine HCl 25 mg tablet 50 mg PO Q8H PRN anxiety 10/10/22 [History Last Taken Unknown] lisinopril 20 mg tablet 40 mg PO DAILY BP 10/10/22 [History Last Taken Unknown] meloxicam 7.5 mg tablet 7.5 mg PO DAILY pain 10/10/22 [History Last Taken Unknown] pregabalin 200 mg capsule 200 mg PO Q8H 10/10/22 [History Last Taken Unknown] sumatriptan succinate 50 mg tablet 50 mg PO PRN PRN migraine headache 10/10/22 [History Last Taken Unknown] ondansetron 4 mg disintegrating tablet 4 mg PO Q8H PRN PRN Nausea #14 tabs 11/14/22 [Rx Last Taken Unknown] atorvastatin 40 mg tablet 40 mg PO QHS Cholesterol 05/11/23 [History Last Taken Unknown] buspirone 5 mg tablet 5 mg PO TID Anxiety 05/11/23 [History Last Taken Unknown] dexlansoprazole 60 mg capsule,biphase delayed release 60 mg PO DAILY GERD 05/11/23 [History Last Taken Unknown] escitalopram oxalate 20 mg tablet 20 mg PO DAILY depression 05/11/23 [History Last Taken Unknown] fluticasone propionate 50 mcg/actuation nasal spray,suspension 2 spray intranasal DAILY allergies 05/11/23 [History Last Taken Unknown] furosemide 40 mg tablet 40 mg PO DAILY water pill 05/11/23 [History Last Taken Unknown] hydroxyzine HCl 50 mg tablet 50 mg PO TID Anxiety 05/11/23 [History Last Taken Unknown] pregabalin 25 mg capsule 25 mg PO BID Nerve pain 05/11/23 [History Last Taken Unknown] tizanidine 4 mg tablet 4 mg PO QHS PRN PRN muscle spasm 05/11/23 [History Last Taken Unknown] Allergy/AdvReac Type Severity Reaction Status Date / Time methotrexate Allergy Other Verified 05/11/23 11:21 nadolol Allergy Unknown Verified 05/11/23 11:21 prochlorperazine Allergy PT UNABLE Verified 05/11/23 11:21 TO RESPOND-NEEDS F/U baclofen AdvReac Other Verified 05/11/23 11:21 lorazepam [From Ativan] AdvReac Nausea Verified 11/14/22 10:49 propranolol AdvReac Other Verified 05/11/23 11:21 Social History Smoking Status: Former smoker ROS Review of Systems ROS Unobtainable: Denies due to encephalopathy, due to endotracheal tube, due tomental condition, due to mental status or other Constitutional Constitutional: Reports anorexia, change in weight, chills and fatigue Eyes Eyes: Denies blurry vision, change in eye color, change in vision, discharge from eye(s), double vision, erythema, eye pain, loss of vision or other ENT HEENT: Denies abnormal hearing, dysphagia, ear pain, epistaxis, headache(s), hearing loss, nasal congestion, nasal discharge, post nasal drip, sinus pressure, sore throat or other Cardiovascular Cardiovascular: Reports dyspnea on exertion and lightheadedness Respiratory/Chest Respiratory/Chest: Reports cough, dyspnea and productive cough; Denies excessivephlegm production or hemoptysis Gastrointestinal Gastrointestinal: Reports abdominal pain, diarrhea and nausea; Denies hematemesis, hematochezia or vomiting Genitourinary Genitourinary: Denies burning urination, difficulty urinating, dysuria, hematuria, nocturia, urinary frequency, urinary hesitancy, urinary incontinence,urinary urgency or other Musculoskeletal Musculoskeletal: Denies arthralgias, back pain, joint pain, joint stiffness, joint swelling, myalgias, neck pain or other Neurologic Neurologic: Denies abnormal gait, abnormal speech, confusion, disequilibrium, dizziness, focal weakness, headache(s), numbness, paresthesias, seizure-like activity, seizures, syncope, tingling, tremor(s) or other Psychiatric Psychiatric: Denies anxiety, depression, homicidal ideation, suicidal ideation or other Endocrine Endocrinology: Denies change in body appearance, cold intolerance, excessive sweating, heat intolerance, polydipsia, polyuria or other Hematologic/Lymphatic Hematologic/Lymphatic: Denies anemia, easy bleeding, easy bruising, lymphadenopathy or other Allergic/Immunologic Allergic/Immunologic: Denies rhinitis, hives, eczemia, asthma or other Vital Signs Vital Signs Vital Signs: 05/11/23 11:15 05/11/23 13:08 05/11/23 13:11 Temperature 97.4 F L Temperature Source Temporal Pulse Rate 110 H 112 H 111 H Respiratory Rate 18 22 H 23 H Respiratory Effort Respiratory Depth Respiratory Pattern Blood Pressure 155/116 H 199/134 H 167/110 H Blood Pressure Mean 129 155 129 Blood Pressure Source Blood Pressure Position Blood Pressure Location Pulse Ox 92 89 92 Oxygen Delivery Method Room Air Room Air Nasal Cannula Oxygen Flow Rate (L/min) 2 05/11/23 13:45 05/11/23 14:21 05/11/23 14:50 Temperature 97.8 F 99.9 F H Temperature Source Oral Pulse Rate 112 H 110 H 108 H Respiratory Rate 16 16 20 H Respiratory Effort Respiratory Depth Respiratory Pattern Blood Pressure 152/96 H 128/93 H 151/106 H Blood Pressure Mean 114 104 121 Blood Pressure Source Monitor Blood Pressure Position Semi-Fowlers Blood Pressure Location Right Arm Pulse Ox 97 97 94 Oxygen Delivery Method Room Air Nasal Cannula Oxygen Flow Rate (L/min) 1 05/11/23 15:23 05/11/23 15:27 05/11/23 14:50 Temperature 99.9 F H Temperature Source Oral Pulse Rate 108 H Respiratory Rate 20 H Respiratory Effort Normal Non-Labored Respiratory Depth Normal Respiratory Pattern Normal Blood Pressure 151/106 H Blood Pressure Mean 121 Blood Pressure Source Blood Pressure Position Blood Pressure Location Pulse Ox 94 94 Oxygen Delivery Method Nasal Cannula Nasal Cannula Nasal Cannula Oxygen Flow Rate (L/min) 1 1 05/11/23 16:52 Temperature 99.8 F H Temperature Source Oral Pulse Rate 103 H Respiratory Rate 20 H Respiratory Effort Respiratory Depth Respiratory Pattern Blood Pressure 139/84 H Blood Pressure Mean 102 Blood Pressure Source Monitor Blood Pressure Position Semi-Fowlers Blood Pressure Location Left Arm Pulse Ox 96 Oxygen Delivery Method Nasal Cannula Oxygen Flow Rate (L/min) 3 Weight Weight: 118 lb 2.684 oz Body Mass Index (BMI) 22.3 Physical Exam Const alert and oriented x3 Constitutional Narrative: Malnourished, Orientation / Consciousness: lethargic HEENT normocephalic Eyes PERRL Neck no lymphadenopathy Resp normal respiratory effort Cardio regular rate and regular rhythm GI normal to inspection, nondistended, normoactive bowel sounds and soft to palpation Extremity normal to inspection, full ROM and no clubbing, cyanosis or edema Neuro oriented x3, CN's II-XII intact bilaterally and moves all extremities Psych affect normal Results Medical Records Data Attestation: I reviewed the patient's medical records Lab / Micro Data Attestation: I reviewed the patient's lab results. Lab results narrative: Leukocytosis, normal hemoglobin and platelet count, creatinine 0.8, AST 41, alk phosphatase 135, albumin 3.0, proteinuria present, urine WBC 0, lactic acid 1.4, 05/11/23 10:59 05/11/23 10:59 Labs: Laboratory Results - last 24 hr 05/11/23 10:59: WBC 13.4 H, RBC 4.74, Hgb 14.0, Hct 41.7, MCV 88.0, MCH 29.5, MCHC 33.6, RDW Std Deviation 42.7, RDW Coeff of Alejandra 13.2, Plt Count 394, MPV 9.4, Immature Gran % (Auto) 2.000 H, Neut % (Auto) 78.4 H, Lymph % (Auto) 10.8 L, [place] % (Auto) 8.6, Eos % (Auto) 0.0, Baso % (Auto) 0.2, Absolute Neuts (auto) 10.5 H, Absolute Lymphs (auto) 1.45, Nucleated RBC % 0, Differential Comment SCANNED, Sodium 136, Potassium 2.8 L, Chloride 96 L, Carbon Dioxide 28.0, Anion Gap 12, BUN 11, Creatinine 0.82, Estim Creat Clear Calc 56.58, Est GFR (MDRD) AfAmer 90, Est GFR (MDRD) Non-Af 75, BUN/Creatinine Ratio 13.3, Glucose 136 H, Lactic Acid 2.4 H*, Calcium 9.4, Total Bilirubin 0.60, AST 41 H, ALT 22, Alkaline Phosphatase 135 H, Total Protein 8.4 H, Albumin 3.0 L, Globulin 5.4 H, Albumin/Globulin Ratio 0.6 L, Lipase 14 05/11/23 12:55: Urine Color Yellow, Urine Clarity Clear, Urine pH 5.0, Ur Specific [place] 1.010, Urine Protein 100 H, Urine Glucose (UA) Normal, Urine Ketones 50 H, Urine Occult Blood 10 H, Urine Nitrite Negative, Urine Bilirubin Negative, Urine Urobilinogen Normal, Ur Leukocyte Esterase Negative, Urine RBC 0SEEN, Urine WBC 0 SEEN, Ur Squamous Epith Cells 0 SEEN, Amorphous Sediment 1+, Urine Bacteria 0 SEEN, Urine Mucus 0 SEEN 05/11/23 16:09: Lactic Acid 1.4 Micro: Microbiology 05/11/23 11:37 Mucosa - Nasopharyngeal SARS-CoV-2, Influenza & RSV (PCR) - Final RSV Imaging Radiology Impression Abdomen/Pelvis CT 05/11/23 11:27 IMPRESSION: 1. Abnormal intramural edema/thickening of the distal gastric antrum wall extending to the pylorus. EGD will be very helpful for further evaluation. 2. No other suspicious acute abnormality in the abdomen and pelvis. 3. Prominent right lateral lung base atelectasis with air bronchograms. Superimposed pneumonia cannot be excluded. 4. Subpleural confluent infiltrate in the medial aspect of the left lower lobe is most likely pneumonia rather than pulmonary nodule. This is a new finding. Follow-up CT chest in one month will help clarify. 5. Cardiomegaly with new 4 mm right pericardial effusion. Electronically Signed: Thomas Portillo MD at 13:27 EST , Chest CT 05/11/23 12:42 IMPRESSION: 1. Prominent atelectases in the right lateral lung base containing air bronchograms. Superimposed pneumonia can''t be excluded. This accounts for the new mediastinal shift when compared to 07/26/2014. 2. A couple of adjacent nodular-like infiltrates in the central aspect of the right upper lobe. This is most likely pneumonia. This is a new finding. 3. Subsegmental atelectasis in the caudal aspect of the right upper lobe. 4. Previous large pneumonia involving the lower lobes of the groundglass opacities in the upper lobes towards the apices have largely resolved. Pneumonia above are new findings. 5. Increased thoracic kyphosis due to increased number of old anterior wedge compression fractures involving T6 down to T11 vertebral bodies. 6. Cardiomegaly is unchanged but there is new 4 mm small right pericardial effusion. Electronically Signed: Thomas Portillo MD at 13:12 EST , Assessment & Plan Assessment/Plan (1) RSV infection: PLAN: Plan 62-year-old female with a history of fibromyalgia, bipolar disorder, rheumatoid arthritis, presents to the ED with concerns regarding ongoing diarrhea since thelast 10 days, shortness of breath and features of hypokalemia at the time of presentation. 1. Diarrhea: Likely infectious diarrhea given in the setting of acute onset, with significant electrolyte changes. -Symptomatic management for now -Correct hypokalemia -Input output monitoring -Diet as tolerated -CT scan suggestive of thickening of the distal gastric antrum, will consult GI as an outpatient for further evaluation. Could be in the setting of acute gastroenteritis. No features of colitis 2. Worsening shortness of breath: Likely related to RSV pneumonia leading to COPD exacerbation. There is subpleural confluent infiltrate in the medial aspect of the left lower lobe. There is only cough but no expectoration and will hold off antibiotics for now -Supportive oxygen therapy as needed -No antibiotics needed at this time given the stable pneumonia -Albuterol 2.5 mg every 4 as needed -Physical therapy 3. Hypokalemia: Related to acute diarrhea and fluid loss. -IV supplementation -Repeat potassium to check correction 4. Bipolar disorder: Continue Lexapro 5. Fibromyalgia: Continue home pain medications including Zanaflex and hydrocodone 6. DVT prophylaxis: Lovenox 40 mg subcu daily 7. Hypertension: On lisinopril and Lasix at home, will can we will hold the medication for now given the hypokalemia Charges/Coding Visit Charges Inpatient E&M: 71497 Init Hosp L2 05/11/23 3236 <Electronically signed by Himanshu Aldana MD> Cosigner Signature (if applicable): CC: DONC DALI RICE; Dr. Himanshu Aldana MD~ Signed [facility] Work Phone: [phone] 115-529403-09-2024 Discharge summary Author Ness Yu [facility] May 11, 2023 5:38pm Note Date/Time May 11, 2023 11:1 8am [facility] Medical Records Department [address] [place] [address] Emergency Department Summary 05/11/23 MR#: [id number] Acct: [id number] Name: LEYDA LOPEZ Rep #:[id number] : 1960 62 From: [place] PCP: SHMUEL PAGAN Status:ADM IN Location: [facility] [id number] <Statement entered by Ness Yu MD - 05/11/23 17:38> I have personally performed a face to face assessment of the patient and have reviewed the KELLY Note. Patient presents secondary to diarrhea and weakness. She reports 1 week historyof nausea and diarrhea. She is having difficulty caring for herself at home. Patient lying in bed appears ill appearing. Head and neck examination reveals dry mucous membranes. Heart is regular rate and rhythm. Lung sounds are grossly clear. Abdomen is soft with diffuse tenderness palpation. Patient given IV fluids and nausea medication. Lab work significant for hypokalemia with a potassium of 2.8. Renal function is normal. Lactic acid is slightly elevated at 2.4. CT scan of the abdomen and pelvis along with chest reveals a right lower lobe pneumonia. Cultures obtained and patient given IV antibiotics. Potassium was replaced via IV. Patient discussed with hospitalistfor admission. HPI History of Present Illness Chief Complaint: Nausea/Vomiting/Diarrhea Narrative Narrative: Patient is a 62-year-old female with history of fibromyalgia, bipolar type I, onantidepressants, CAD who presents to the emerged department with 5 days of abdominal pain, nausea, diarrhea. Patient states she is having greater than 10 bowel movements a day where is almost uncontrollable. Patient complains of fever and chills. Patient that she is extremely weak at home and cannot performher daily activities. Patient denies any blood in stool or vomit. Patient doeshave significant abdominal pain throughout her abdomen. Denies any recent antibiotic use, denies any recent travel. [facility] Medical History Bipolar 1 disorder COPD (chronic obstructive pulmonary disease) Fibromyalgia Hypertension NSTEMI (non-ST elevated myocardial infarction) Rheumatoid arthritis Home Medications albuterol sulfate 90 mcg/actuation aerosol inhaler (ProAir HFA) 2 puff inhalation Q4H PRN PRN Sob &/Or Wheezing 07/26/14 [History Last Taken 06/06/17] lisinopril 40 mg tablet (Zestril) 40 mg PO DAILY bp 07/26/14 [History Last Taken 06/07/17] albuterol sulfate 90 mcg/actuation aerosol inhaler (ProAir HFA) 1 puff inhalation Q4H PRN PRN Dyspnea/Wheezing/Sob 03/21/15 [History Last Taken Unknown] nitroglycerin 0.4 mg sublingual tablet 0.4 mg sublingual PRN PRN CHEST PAIN 06/04/17 [History Last Taken Unknown] hyoscyamine sulfate 0.125 mg sublingual tablet 0.125 mg sublingual Q8H PRN dyspepsia 10/09/22 [History Last Taken Unknown] nitrofurantoin monohydrate/macrocrystals 100 mg capsule 100 mg PO Q12 #10 CAPSULES 10/09/22 [Rx Last Taken Unknown] amitriptyline 100 mg tablet 100 mg PO QHS 10/10/22 [History Last Taken Unknown] hydroxyzine HCl 25 mg tablet 50 mg PO Q8H PRN anxiety 10/10/22 [History Last Taken Unknown] lisinopril 20 mg tablet 40 mg PO DAILY 10/10/22 [History Last Taken Unknown] meloxicam 7.5 mg tablet 7.5 mg PO DAILY 10/10/22 [History Last Taken Unknown] pregabalin 200 mg capsule 200 mg PO Q8H 10/10/22 [History Last Taken Unknown] sumatriptan succinate 50 mg tablet 50 mg PO PRN PRN migraine headache 10/10/22 [History Last Taken Unknown] cefpodoxime 200 mg tablet 200 mg PO BID #24 tabs 11/14/22 [Rx Last Taken Unknown] hydrocodone-acetaminophen 5-325mg 5mg-325mg 1 tab PO Q6H PRN PRN Pain 3 days #10TABLETS 11/14/22 [Rx Last Taken Unknown] ondansetron 4 mg disintegrating tablet 4 mg PO Q8H PRN PRN Nausea #14 tabs 11/14/22 [Rx Last Taken Unknown] Allergy/AdvReac Type Severity Reaction Status Date / Time methotrexate Allergy Other Verified 05/11/23 11:21 nadolol Allergy Unknown Verified 05/11/23 11:21 prochlorperazine Allergy PT UNABLE Verified 05/11/23 11:21 TO RESPOND-NEEDS F/U baclofen AdvReac Other Verified 05/11/23 11:21 lorazepam [From Ativan] AdvReac Nausea Verified 11/14/22 10:49 propranolol AdvReac Other Verified 05/11/23 11:21 Social History Smoking Status: Current every day smoker tobacco type: cigarettes ROS ROS ED ROS Narrative Constitutional: Negative for weight loss. Positive for fever chills, weakness Eyes: Negative for vision loss, vision change, double vision ENT: Negative for any sore throat, ear pain, congestion Cardiovascular: Negative for any chest pain, tightness, palpitations Respiratory: Negative for any cough, sputum production, hemoptysis, dyspnea, dyspnea on exertion, orthopnea Gastrointestinal: Negative for any abdominal pain, vomiting, constipation, bloodin stool, blood in vomit. Positive for nausea, controlled diarrhea : Negative for any urinary frequency, dysuria, retention, blood in urine Muscle skeletal: Negative for any neck pain, back pain Neurological: Negative for any headache, syncope, dizziness Skin: Negative for any rashes, itching, abrasions, lacerations Psychiatric: Negative for any depression, anxiety, stress, suicidal ideation, homicidal ideation Hematologic: Negative for any excessive bruising, easy bleeding EXAM Physical Exam Narrative Exam Narrative: Vital signs reviewed. Patient does look like she does not feel well, patient is dehydrated appearing. HEET: Head normocephalic atraumatic, TMs clear bilaterally. Posterior pharynx is clear, dry mucous membranes. Nares clear bilaterally. Neck: Supple with no lymphadenopathy or tenderness. No signs of meningismus. Cardiac: Regular rate and rhythm no murmurs gallops or rubs, equal peripheral pulses bilaterally. Respiratory: Lungs clear to auscultation bilaterally. No chest tenderness. Abdomen: Soft, nondistended. No abdominal bruit or pulsatile masses. No hepatosplenomegaly. Patient was settled on my examination. Patient had significant abdominal pain on palpation worse to the left lower quadrant. Extremities: No peripheral edema, no signs of gross trauma or deformity. Activefull range of motion of all extremities. Neuro: Cranial nerves II through XII intact, no focal neurological deficits. Skin: Clean dry and intact with no rash, purpura, petechiae, vesicles or pustules. Backs/flank: No CVA tenderness, no midline spinal tenderness, no deformity. Psych: Normal mood and affect. No SI, HI or acute psychosis. Const Vital Signs: 05/11/23 11:15 05/11/23 13:08 05/11/23 13:11 Temperature 97.4 F L Temperature Source Temporal Pulse Rate 110 H 112 H 111 H Respiratory Rate 18 22 H 23 H Blood Pressure 155/116 H 199/134 H 167/110 H Blood Pressure Mean 129 155 129 Pulse Ox 92 89 92 Oxygen Delivery Method Room Air Room Air Nasal Cannula Oxygen Flow Rate (L/min) 2 05/11/23 13:45 Temperature Temperature Source Pulse Rate 112 H Respiratory Rate 16 Blood Pressure 152/96 H Blood Pressure Mean 114 Pulse Ox 97 Oxygen Delivery Method Room Air Oxygen Flow Rate (L/min) Positive cachectic and unkempt General Appearance ED: unkempt and cachectic Nutritional Appearance: cachectic Psych Appearance: unkempt MDM MDM Lab Data Labs: Laboratory Results - last 24 hr 05/11/23 05/11/23 10:59 12:55 WBC 13.4 H RBC 4.74 Hgb 14.0 Hct 41.7 MCV 88.0 MCH 29.5 MCHC 33.6 RDW Std Deviation 42.7 RDW Coeff of Alejandra 13.2 Plt Count 394 MPV 9.4 Immature Gran % (Auto) 2.000 H Neut % (Auto) 78.4 H Lymph % (Auto) 10.8 L [place] % (Auto) 8.6 Eos % (Auto) 0.0 Baso % (Auto) 0.2 Absolute Neuts (auto) 10.5 H Absolute Lymphs (auto) 1.45 Nucleated RBC % 0 Differential Comment SCANNED Sodium 136 Potassium 2.8 L Chloride 96 L Carbon Dioxide 28.0 Anion Gap 12 BUN 11 Creatinine 0.82 Estim Creat Clear Calc 56.58 Est GFR (MDRD) Af Amer 90 Est GFR (MDRD) Non-Af 75 BUN/Creatinine Ratio 13.3 Glucose 136 H Lactic Acid 2.4 H* Calcium 9.4 Total Bilirubin 0.60 AST 41 H ALT 22 Alkaline Phosphatase 135 H Total Protein 8.4 H Albumin 3.0 L Globulin 5.4 H Albumin/Globulin Ratio 0.6 L Lipase 14 Urine Color Yellow Urine Clarity Clear Urine pH 5.0 Ur Specific [place] 1.010 Urine Protein 100 H Urine Glucose (UA) Normal Urine Ketones 50 H Urine Occult Blood 10 H Urine Nitrite Negative Urine Bilirubin Negative Urine Urobilinogen Normal Ur Leukocyte Esterase Negative Urine RBC 0 SEEN Urine WBC 0 SEEN Ur Squamous Epith Cells 0 SEEN Amorphous Sediment 1+ Urine Bacteria 0 SEEN Urine Mucus 0 SEEN Radiography Diagnostic Testing: Clinical Impression(s) from Imaging Studies Abdomen/Pelvis CT 05/11/23 11:27 IMPRESSION: 1. Abnormal intramural edema/thickening of the distal gastric antrum wall extending to the pylorus. EGD will be very helpful for further evaluation. 2. No other suspicious acute abnormality in the abdomen and pelvis. 3. Prominent right lateral lung base atelectasis with air bronchograms. Superimposed pneumonia cannot be excluded. 4. Subpleural confluent infiltrate in the medial aspect of the left lower lobe is most likely pneumonia rather than pulmonary nodule. This is a new finding. Follow-up CT chest in one month will help clarify. 5. Cardiomegaly with new 4 mm right pericardial effusion. Electronically Signed: Thomas Portillo MD at 13:27 EST , Chest CT 05/11/23 12:42 IMPRESSION: 1. Prominent atelectases in the right lateral lung base containing air bronchograms. Superimposed pneumonia can''t be excluded. This accounts for the new mediastinal shift when compared to 07/26/2014. 2. A couple of adjacent nodular-like infiltrates in the central aspect of the right upper lobe. This is most likely pneumonia. This is a new finding. 3. Subsegmental atelectasis in the caudal aspect of the right upper lobe. 4. Previous large pneumonia involving the lower lobes of the groundglass opacities in the upper lobes towards the apices have largely resolved. Pneumonia above are new findings. 5. Increased thoracic kyphosis due to increased number of old anterior wedge compression fractures involving T6 down to T11 vertebral bodies. 6. Cardiomegaly is unchanged but there is new 4 mm small right pericardial effusion. Electronically Signed: Thomas Portillo MD at 13:12 EST , EKG Sinus tachycardia: Attestation: I personally reviewed and interpreted this EKG as follows: Comments: Sinus tachycardia with short HI, rate 110 bpm, HI 94 ms, QRS duration 90 ms, no acute ST elevation, no acute infarct noted. Treatment and Re-Evaluation :: Differential diagnosis includes however is not limited to: C. difficile, diverticulitis, viral stool infection, gastroenteritis, COVID-19, influenza Patient appears to be in mild distress secondary to dehydration, uncontrollable diarrhea. Patient is tachycardic at a rate of 110, blood pressure slightly elevated. Patient received basic laboratory values, including stool studies, patient will receive a lactic acid. CT scan of the abdomen pelvis will be completed secondary to the patient's tenderness to her left lower abdomen. Patient will receive IV fluids, IV Zofran. Patient will be reevaluated. Patient's laboratory values shows a white blood count of 13.4, slight leukocytosis, patient does have some absolute neutrophils of 10.5. Patient's potassium is low at 2.8, chloride low at 96. Renal function was unremarkable, lactic acid was elevated 2.4, patient was given 1 L of normal saline. Lipase was negative. Patient is positive for RSV. Patient's urinalysis was negative for any infection. Patient CT scan of the abdomen pelvis shows an abnormal intramural edema/thickening of the distal gastric atrium wall extending to the pylorus, EGD will be helpful. No other suspicious abnormality in the abdomen or pelvis. Patient CT scan of the chest shows a prominent atelectasis in the right lateral lung base containing air bronchograms. Superimposed pneumonia cannot be excluded. A couple of adjacent nodular-like infiltrates in the central aspect of the right upper lobe. Cardiomegaly unchanged with there is a 4 mm small right pericardial effusion. At this time, patient did drop to 88% on room air, patient was placed on 2 L. Secondary to the dehydration, hypokalemia, RSV, infiltrates, patient will be admitted to the hospital. I spoke with hospitalist, patient be PCU full, patient be started on Rocephin, Zithromax. 2 sets of blood cultures will be drawn. Patient is agreeable with the plan, patient stable for admission. Discharge Plan Triage Chief Complaint: Nausea/Vomiting/Diarrhea ED Midlevel Provider: Juan Celis ED Provider: Ness Yu Dx/Rx/DC Orders Clinical Impression: Community acquired pneumonia, RSV infection, Hypoxia, Acute hypokalemia Prescriptions: No Action albuterol sulfate [ProAir HFA] 1 PUFF inhaler 2 puff inhalation Q4H PRN PRN (Reason: Sob &/Or Wheezing) lisinopril [Zestril] 40 MG tablet 40 mg PO DAILY albuterol sulfate [ProAir HFA] 1 PUFF inhaler 1 puff inhalation Q4H PRN PRN (Reason: Dyspnea/Wheezing/Sob) nitroglycerin 0.4 MG tablet, sublingual 0.4 mg sublingual PRN PRN (Reason: CHEST PAIN) cefpodoxime 200 mg tablet 200 mg PO BID Qty: 24 0RF Rx Instructions: must administer with a meal/food ondansetron 4 mg tablet,disintegrating 4 mg PO Q8H PRN PRN (Reason: Nausea) Qty: 14 0RF hydrocodone-acetaminophen 5-325 mg tablet 1 tab PO Q6H PRN PRN (Reason: Pain) 3 Days Qty: 10 0RF nitrofurantoin monohyd/m-cryst [nitrofurantoin monohyd/m-cryst] 100 mg capsule 100 mg PO Q12 Qty: 10 0RF hyoscyamine sulfate 0.125 mg tablet, sublingual 0.125 mg sublingual Q8H PRN (Reason: dyspepsia) Patient Comments: DISSOLVE 1 TABLET UNDER THE TONGUE THREE TIMES DAILY NEEDED amitriptyline 100 mg tablet 100 mg PO QHS hydroxyzine HCl 25 mg tablet 50 mg PO Q8H PRN (Reason: anxiety) Patient Comments: TAKE TWO TABLETS BY MOUTH EVERY 8 HOURS NEEDED (VIAL) sumatriptan succinate 50 mg tablet 50 mg PO PRN PRN (Reason: migraine headache) meloxicam 7.5 mg tablet 7.5 mg PO DAILY Patient Comments: TAKE ONE TABLET BY MOUTH DAILY AT 9AM pregabalin 200 mg capsule 200 mg PO Q8H lisinopril 20 mg tablet 40 mg PO DAILY Primary Care Provider: DALI RICE Referrals: DALI RICE NP-C [Primary Care Provider] - Disposition Disposition: Acute Care Hospital [facility] What to do if you have Problems For any increased pain, shortness of breath, bleeding, nausea or vomiting, chestpain, or any unexpected problems, contact your Primary Care Provider. Call [facility] ([phone]) or report to the closest Emergency Room. Call 911 if necessary. 05/11/23 1351 <Electronically signed by Juan [place]> Cosigner Signature (if applicable): 05/11/23 1738 <Electronically signed by Ness Yu MD> CC: SHMUEL RICE ~ Signed [facility] Work Phone: [phone] 608-879703-08-2024 Miscellaneous Notes* Telephone Encounter - Millie Askew - 05/10/2023 11:11 AM EST Patient was inappropriately scheduled with Dr. Bonilla for Fibromyalgia pain. Dr. Bonilla only treats pain related to the spine, hips, sacroiliac joints, and knees. Called and left voicemail for patient informing her of appt cancellation. Asked that she call our office at [phone] to reschedule with a different pain mgmt provider. Message also sent via youmag. Millie Askew [facility] Miscellaneous Notes* Telephone Encounter - Geoffrey Barboza, RN - 05/10/2023 10:42 AM EST [facility] requesting several refills for patient. Phoned patient to see if she wants Rx's sent to [facility]. Patient states she does not want her medications sent to [facility] and remove [facility] from her list. Removed [facility] from list. States she only wants to use [facility]. Reports she does not need refills at this time. documented in this encounterMer[facility]-2024 History of Present illness Narrative* Nasrin Orozco MA - 05/10/2023 10:30 AM EST POPULATION HEALTH NAVIGATION OUTREACH Action/FYI Last Wellness exam 03/27/2019 Mammogram ordered 09/19/2022 Reason for Outreach Care Gap/HCC or Scheduling Wellness Visits Care Gaps due: Medicare Annual Wellness Visit Breast Cancer Screening Colorectal Cancer Screening Patient Contacted: Unable or unnecessary to reach patient: Left message [facility] message sent Navigation Signature: Nasrin Jenkins MA May 10, 2023 10:30 AM documented in this encounterMer[facility]03-05-2024 Miscellaneous Notes* Telephone Encounter - Pamela Khan - 05/07/2023 4:19 PM EST 3rd attempt MYCHART MESSAGE SENT Pamela Khan * Telephone Encounter - Pamela Khan - 05/06/2023 8:33 AM EST Phone was unable to ring stated that it was disconnected Called spouse no answer and vm set up Pamela Khan * Telephone Encounter - Pamela Khan - 05/03/2023 8:15 AM EST Called patient and left a vm for us to return our phone call START Q1YR RECLAST / MARI MARTINEZ ORDERING / AUTH EXP 03/03/24* * Telephone Encounter - Mari Martinez APRN.CNP - 05/02/2023 12:42 PM EST Please advise that she does not need labs prior to reclast, just 2 weeks after per previous message. Please assist with scheduling reclast. Thanks, Mari Martinez APRN.PLATE FILLER * Telephone Encounter - Pamela Khan - 05/02/2023 12:27 PM EST Does she need labs prior to the reclast ? * Telephone Encounter - Homa Luna - 05/02/2023 12:06 PM EST Rohan, this patient was approved for Reclast. Can you assist her in setting up for an appointment to receive the infusion? Please let us know if you need anything faxed or sent over. Thank you! * Telephone Encounter - Mari Martinez APRN.CNP - 05/02/2023 11:38 AM EST Please call and inform the patient that reclast was approved. Please assist with scheduling reclast. She is due now. Please advise her to stay well hydrated the day of the infusion. Please ask her tohave labs done 2 weeks after the reclast to check a calcium level. Please change her f/u to be in 4-5 months with [facility] to establish care. Telephone on 05/02/23 CALCIUM TOTAL BLD Mari Mueller APRN.PLATE FILLER documented in this encounterMer[facility]02-29-2024 Miscellaneous Notes* Telephone Encounter - Leola Shelley LPN - 05/02/2023 5:56 PM EST Patient has been identified by name and date of : Yes Patient phones for refill(s): Requested Prescriptions Pending Prescriptions Disp Refills atorvastatin (LIPITOR) 40 mg tablet [Pharmacy Med Name: atorvastatin 40 mg tablet] 30 tablet 11 Sig: TAKE ONE TABLET BY MOUTH DAILY AT 9PM AT BEDTIME Date of last office visit in primary care: 05/02/2023 Date of next office visit in primary care: 05/02/2023 Please advise. Thank you. Leola Shelley LPN. documented in this encounterMer[facility]02-29-2024 History of Present illness Narrative* Dali Rice APRN.CNP - 05/02/2023 9:44 AM EST CC: Patient presents with: Recheck HPI Leyda Lopez is a 62 year old female who presents today for blood pressure follow up. HTN: Ms. Lopez indicates that she is feeling well and denies any symptoms referable to elevatedblood pressure. Specifically denies chest pain, palpitations, dyspnea, and peripheral edema. Has noticed some headaches.Patient denies any side effects of her medication(s) and is compliant with their regimen. She does not check BP's generally. Leyda denies regular aerobic exercise. She watches her diet for sodium, low fat and low cholesterol some of the time. Last 3 Encounter BP Readings: Date: BP: 05/02/2023 175/110[BP) Reagan[ 04/29/2023 184/114 02/11/2023 156/108[True BP[ Depression and Anxiety: Stopped seeing Dr. Mobley a few months ago and wants to schedule with . Both uncontrolled and using her hydroxyzine three times a day that do not help. Feels very depressed with not having her daughter home. Sleep: is described as normal Alcohol use: does not drink any alcohol Drug use: Yes: Marijuana Current Appetite: good Suicidal Thoughts: No suicidal or homicidal ideation, intent or plan Support: Comes from multiple sources including boyfriend REVIEW OF SYSTEMS See HPI PAST MEDICAL HISTORY Diagnosis Date Abdominal pain, right upper quadrant ADD (attention deficit disorder) Seeing psychiatry Anemia, unspecified Asthma Back pain chronic-Seeing Dr. Blankenship Bipolar affective disorder ([facility]) Chronic right shoulder pain Seeing Dr. Molina Closed dislocation of tarsometatarsal (joint) 01/18/2011 COPD (chronic obstructive pulmonary disease) ([facility]) Depressive disorder, not elsewhere classified 03/22/2005 Disorder of bone and cartilage, unspecified 02/09/2008 Distal radius fracture 01/05/2011 Dysuria Fibromyalgia GERD (gastroesophageal reflux disease) IBS (irritable bowel syndrome) Mitral regurgitation Severe Neck pain chronic-takes vicodin for this NSTEMI (non-ST elevated myocardial infarction) ([facility]) Seeing Dr. Hutton JD (obstructive sleep apnea) Other and unspecified hyperlipidemia Panic disorder without agoraphobia 03/22/2005 PMR (polymyalgia rheumatica) ([facility]) RA (rheumatoid arthritis) ([facility]) Unspecified essential hypertension 03/22/2005 PAST SURGICAL HISTORY Procedure Laterality Date COLONOSCOPY FLX DX W/COLLJ SPEC WHEN PFRMD 01/23/08 Normal COLONOSCOPY FLX DX W/COLLJ SPEC WHEN PFRMD 01/09/2012 Colonoscopy DIAGNOSTIC ARTHROSCOPY SHOULDER +- SYNOVIAL BX Right 04/10/2017 Right shoulder arthroscopy with open SAD and rotator cuff repair EGD TRANSORAL BIOPSY SINGLE/MULTIPLE 01/23/08 Minimal antral gastritis HEART CATHETERIZATION 01/2016 no intervention Partial hysterectomy still has ovaries PAST SURGICAL HISTORY OF 02/2016 total teeth extraction RMVL LENS MATERIAL PHACOFRAGMENTATION ASPIR 12/2010 Cataract Extraction RPR UMBILICAL HRNA 5 YRS/> REDUCIBLE 12/04/2016 Hernia repair, umbilical >5yr SURGICAL ARTHROSCOPY SHOULDER W/ROTATOR CUFF RPR Right 01/01/2018 Right shoulder arthroscopy SAD, Acromioplasty, debridement glenohumeral joint, biceps tenotomy, RCR, superior capsular reconstruction ALLERGIES Ativan [Lorazepam], Baclofen, Methotrexate, Nadolol, Nexium [Esomeprazole Magnesium], Penicillin G, and Propranolol MEDICATIONS ondansetron orally disintegrating (ZOFRAN ODT) 4 mg disintegrating tablet Take 1 tablet by mouth every 8 hours as needed. pregabalin (LYRICA) 25 mg capsule Take 1 capsule by mouth two times a day for 60 days. SUMAtriptan (IMITREX) 50 mg tablet Take 1 tablet (50 mg) by mouth as needed for migraine headache (see administration instructions). START AT ONSET OF HEADACHE. MAY REPEAT DOSE AFTER 2 HOURS. meloxicam (MOBIC) 7.5 mg tablet Take 1 tablet by mouth once daily. lisinopril (ZESTRIL) 20 mg tablet Take 1 tablet by mouth once daily. hydrOXYzine HCl (ATARAX) 50 mg tablet Take 1 tablet by mouth every 8 hours as needed for anxiety. fluticasone (FLONASE) 50 mcg/actuation nasal spray INSTILL 2 SPRAYS IN EACH NOSTRIL DAILY RINSE MOUTH AFTER USE (BULK) furosemide (LASIX) 40 mg tablet TAKE ONE TABLET BY MOUTH DAILY AT 9AM atorvastatin (LIPITOR) 40 mg tablet TAKE ONE TABLET BY MOUTH DAILY AT 9PM AT BEDTIME loperamide (IMODIUM) 2 mg cap(s) Take 1 capsule by mouth three times daily as needed. amitriptyline (ELAVIL) 100 mg tablet Take 1 tablet by mouth daily at bedtime. tiZANidine (ZANAFLEX) 4 mg tablet TAKE ONE TABLET BY MOUTH AT BEDTIME NEEDED FOR MUSCLE SPASMS (VIAL) fluticasone-salmeterol (ADVAIR, WIXELA) 250-50 mcg/dose inhaler Inhale 1 Puff as instructed twice daily. colestipol (COLESTID) 1 gram tablet TAKE ONE TABLET BY MOUTH TWICE DAILY @ 9AM & 5PM escitalopram oxalate (LEXAPRO) 20 mg tablet Take 1 tablet by mouth once daily. DEXILANT 60 mg CpDM TAKE ONE CAPSULE BY MOUTH DAILY AT 9AM hyoscyamine sublingual (LEVSIN SL) 0.125 mg Dissolve 1 tablet under the tongue three times daily asneeded. ipratropium (ATROVENT) 0.02 % nebulizer solution Use 2.5 mL via nebulizer four times daily as needed for Wheezing/Shortness of Breath. Use over 5-15minutes. Dx:J45.40 Cholecalciferol, Vitamin D3, 2,000 unit tab Take 2 tablets by mouth once daily. FAMILY HISTORY Problem Relation Age of Onset Heart Father DC COPD Father other (Pulmonary fibrosis) Father COPD Mother Breast Cancer Mother Social History Tobacco Use Smoking status: Former Packs/day: .5 Types: Cigarettes Start date: 1973 Quit date: 03/04/1989 Years since quittin.1 Smokeless tobacco: Never Tobacco comments: Both parents smoked in childhood home. Lived with smoker as adult. Vaping Use Vaping Use: Never used Substance Use Topics Alcohol use: No Drug use: No PHYSICAL EXAM BP 175/110 Pulse 84 Resp 16 Wt 57.6 kg (127 lb) SpO2 97% BMI 27.01 kg/m General Appearance: well appearing, in no acute distress, alert Pysch: mood and affect broad and appropriate Skin: Skin color, texture, turgor normal for age; Lungs: Lungs clear to auscultation. No wheezing, rhonchi, rales. Heart: RRR without murmur, gallop, or rubs. No ectopy Health maintenance reviewed with patient: Covid-19 Vaccine(1) Never done BP Controlled (<130/80) Never done Alpha-1 Antitrypsin Deficiency Screening Never done Shingrix Vaccine(1 of 2) Never done Pneumococcal Vaccine(2 of 2 - PCV) due on 01/28/2013 Mammogram Screening due on 08/06/2017 RSV Vaccine(1 - 1-dose 60+ series) Never done Colorectal Cancer Screening due on 01/08/2022 Influenza Vaccine(1) due on 11/02/2022 Annual PCP Team Chronic Disease Visit due on 02/12/2024 Hemoglobin/Hematocrit due on 02/12/2024 Serum Creatinine due on 04/29/2024 Diabetes Screening due on 02/11/2026 Lipid Screening due on 02/12/2028 DTaP,Tdap,Td Vaccine(3 - Td or Tdap) due on 07/22/2028 Spirometry Completed Hepatitis C Screening Completed HIV Screening Completed Pap Testing Discontinued HPV Testing Discontinued DATA REVIEWED: No new labs ASSESSMENT/PLAN: 1. Moderate episode of recurrent major depressive disorder (HCC) - ICD9: 296.32, ICD10: F33.1 (primary diagnosis) - uncontrolled, continue current medications and adding buspar - ESCITALOPRAM 20 MG TABLET - Reviewed concept of neurochemical imbalance wth depression/anxiety, treatment options and benefits of counseling in combination with medication. Also reviewed benefits of sleep hygeine, diet and exercise - Instructed patient to contact office or [id number] after-hours promptly should condition worsen or any new symptoms appear. - Counseling Center [facility] and after hours crisis line 2. Anxiety - ICD9: 300.00, ICD10: F41.9 As above - ESCITALOPRAM 20 MG TABLET 3. Essential hypertension - ICD9: 401.9, ICD10: I10 - Uncontrolled - Continue current medications but increasing lisinopril - Recommend home blood pressure monitoring, to bring results to next visit - Encouraged sodium restriction, DASH or Mediterranean diet - Recommend regular aerobic exercise - LISINOPRIL 40 MG TABLET Prescription instructions reviewed with patient as applicable. Potential red flag symptoms discussed with the patient. Reviewed appropriate action plan to take if red flag symptoms occur. Patient agreeable to treatment plan. Dali Rice APRN.CNP documented in this encounterMer[facility]02-12-[facility]24 History of Present illness Narrative* Genia Nuñez RN - 04/15/2023 4:01 PM EST CDM Telephonic Outreach Provider Action/FYI Multiple attempts to reach- messages left Contacted for: Routine Telephonic Outreach Contact made with patient: patient disengaged removed from program No, left message. Genia Nuñez RN April 15, 2023 4:07 PM Contact made with patient: No, left message. Genia Nuñez RN April 15, 2023 4:07 PM documented in this encounterMercy Health [facility]02-12-2024 Miscellaneous Notes* Telephone Encounter - Cara Palomo LPN - 04/15/2023 2:10 PM EST Electronic PA completed for ondansetron. This was denied. To: Dali Rice From: [facility] Phone: Fax: [phone] Reference #: [id number] RE: Prior Authorization Request __ Status of Request: Deny Medication Name: Ondansetron Tab 4mg Odt [facility]/ND: [id number] Decision Notes: Medicare allows us to cover a drug only when it is a Part D drug. A Part D drug is one that is used for a medically accepted indication. A medically accepted indication means the use is approved by the Food and Drug Administration (FDA) OR the use is supported by one of the following accepted references: (1) [facility] Formulary Service Drug Information. (2) [employer] DRUGDEX Information System. ONDANSETRON TAB 4MG ODT is not FDA approved for your medical condition(s): Nausea. These condition(s) are not supported by one of the accepted references. Therefore your drug is denied because it is not being used for a medically accepted indication. documented in this encounterMercy [facility]02-12-2024 Miscellaneous Notes* Telephone Encounter - Ute Vincent LPN - 04/15/2023 2:00 PM EST Patient has been identified by name and date of : No Patient phones for refill(s): Requested Prescriptions Pending Prescriptions Disp Refills ondansetron orally disintegrating (ZOFRAN ODT) 4 mg disintegrating tablet 30 tablet 1 Sig: Take 1 tablet by mouth every 8 hours as needed. Date of last office visit in primary care: 02/11/2023 Date of next office visit in primary care: 05/02/2023 Please advise. Thank you. Ute Vincent LPN. documented in this encounterMercy [facility]02-12-2024 Miscellaneous Notes* Telephone Encounter - Ute Vincent LPN - 04/15/2023 9:35 AM EST Patient has been identified by name and date of : No Patient phones for refill(s): Requested Prescriptions Pending Prescriptions Disp Refills ondansetron orally disintegrating (ZOFRAN ODT) 4 mg disintegrating tablet 30 tablet 1 Sig: Take 1 tablet by mouth every 8 hours as needed. Date of last office visit in primary care: 02/11/2023 Date of next office visit in primary care: 05/02/2023 Please advise. Thank you. Ute Vincent LPN. documented in this encounterMercy [facility]12-06-2023 Miscellaneous Notes* Telephone Encounter - Gustavo Wells RN - 02/06/2023 4:14 PM EST Patient has been identified by name and date of : Yes, Provider Dr Palacio Date 02/06/23 Time 1616. Patient phones for refill(s): Requested Prescriptions Pending Prescriptions Disp Refills SUMAtriptan (IMITREX) 50 mg tablet 4 tablet 2 Sig: Take 1 tablet (50 mg) by mouth as needed for migraine headache (see administration instructions). START AT ONSET OF HEADACHE. MAY REPEAT DOSE AFTER 2 HOURS. lisinopril (ZESTRIL) 20 mg tablet 90 tablet 1 Sig: Take 1 tablet by mouth once daily. hydrOXYzine HCl (ATARAX) 50 mg tablet 90 tablet 3 Sig: Take 1 tablet by mouth every 8 hours as needed for anxiety. Date of last office visit in primary care: 10/01/2022 Date of next office visit in primary care: 02/11/23 Last 2 Encounter Wt Readings: Date: Wt: 01/29/2023 54.4 kg (120 lb) 01/31/2022 58.1 kg (128 lb) Previous labs/tests for medication: Blood Pressure: BUN (mg/dL) Date Value 01/31/2022 25 08/11/2020 18 08/11/2020 19 Sodium (mmol/L) Date Value 01/31/2022 141 08/11/2020 145 08/11/2020 146 Last 1 Encounter BP Readings: Date: BP: 01/29/2023 158/86 Liver Function: ALT (U/L) Date Value 01/31/2022 18 08/11/2020 14 AST (U/L) Date Value 01/31/2022 25 08/11/2020 22 Please advise. Thank you. Gustavo Wells, RICARDO. documented in this encounterMercy [facility]11-27-2023 Miscellaneous Notes* Telephone Encounter - Ruth Tobar RN - 01/28/2023 10:00 AM EST Patient returned call and given provider's message below and patient verbalized understanding. Pt has appt 02/06. Dixie Tobar RN * Telephone Encounter - Michelle Beckham Ma - 01/23/2023 12:59 PM EST Left message for return call. * Telephone Encounter - Dali Rice APRN.CNP - 01/23/2023 12:43 PM EST We have never prescribed her zofran. She needs to be seen to discuss this further. If needed express care is an option if unable to wait until scheduled appointment Thank you Dali Rice APRN.CNP * Telephone Encounter - Suellen Zaragoza LPN - 01/22/2023 11:50 AM EST Pt is asking for this request to be reviewed. This was in a refill encounter from 01/20. Pt notified Dali Rice, PLATE FILLER is out of the office today and will return Weds. Ruth Tobar RN SW 01/21/23 2:07 PM Note Pt returned call and appt made, as advised. Pt asking for short term script for Zofran oral disintegrating tabs until appt on 02/06 for stomach upset. Has taken before and was effective. Reports she has been stressed due to her daughter being moved out. Has been reaching out to her counselor as needed. Please call pt with response. Thank you. Pt reports she needs prednisone for pain and swelling from inflammation. Pt also reports she doesn't feel like meloxicam is working anymore either. Pt has an appt 02/06 but reports she needs something for pain and inflammation sooner. Suellen Zaragoza LPN documented in this encounterMercy [facility]11-21-2023 History of Present illness Narrative* Genia Nuñez RN - 01/22/2023 2:23 PM EST CDM Telephonic Outreach Provider Action/FYI Patient called PCP office today requesting medications. PCP follow up scheduled Multiple attempts to reach Contacted for: Routine Telephonic Outreach Contact made with patient: No, left message. Genia Nuñez RN January 22, 2023 2:58 PM documented in this encounterMercy [facility]11-20-2023 Miscellaneous Notes* Addendum Note - Ruth Tobar RN - 01/21/2023 2:08 PM ESTAddended by: RUTH TOBAR on: 01/21/2023 02:08 PM Modules accepted: Orders * Telephone Encounter - Ruth Tobar RN - 01/21/2023 2:02 PM EST Pt returned call and appt made, as advised. Pt asking for short term script for Zofran oral disintegrating tabs until appt on 02/06 for stomach upset. Has taken before and was effective. Reports she has been stressed due to her daughter being moved out. Has been reaching out to her counselor as needed. Please call pt with response. Thank you. * Telephone Encounter - Ute Vincent - 01/21/2023 9:34 AM EST Patient was called to call the office back to make robin appointment. Patient is requesting med refills, but needs an appointment. documented in this encounterMercy [facility]10-26-2023 Miscellaneous Notes* Telephone Encounter - Dali Rice APRN.CNP - 12/27/2022 3:34 PM EDT I have refilled this but will not refill any further until she is seen again. Thank you Dali Rice APRN.MARIETTA * Telephone Encounter - Danni Cobian LPN - 12/27/2022 8:31 AM EDT Patient has been identified by name and date of : Yes Patient phones for refill(s): Requested Prescriptions Pending Prescriptions Disp Refills SUMAtriptan (IMITREX) 50 mg tablet 4 tablet 2 Sig: Take 1 tablet (50 mg) by mouth as needed for migraine headache (see administration instructions). START AT ONSET OF HEADACHE. MAY REPEAT DOSE AFTER 2 HOURS. Date of last office visit in primary care: 10/01/2022 Date of next office visit in primary care: 12/27/2022 Please advise. Thank you. Danni Cobian LPN. documented in this encounterMercy [facility]10-26-2023 Miscellaneous Notes* Telephone Encounter - Danni Cobian LPN - 12/27/2022 8:29 AM EDT Patient has been identified by name and date of : Yes Patient phones for refill(s): Requested Prescriptions Pending Prescriptions Disp Refills meloxicam (MOBIC) 7.5 mg tablet 30 tablet 1 Sig: Take 1 tablet by mouth once daily. Date of last office visit in primary care: 10/01/2022 Date of next office visit in primary care: Visit date not found Please advise. Thank you. Danni Cobian LPN. documented in this encounterMercy Health [facility]10-10-2023 History of Present illness Narrative* Genia Nuñez RN - 12/11/2022 1:22 PM EDT [facility] Telephonic Outreach Provider Action/FYI Multiple attempts to reach patient Contacted for: Routine Telephonic Outreach Contact made with patient: No, left message. Genia Nuñez RN December 11, 2022 1:23 PM documented in this encounterMercy [facility]10-09-2023 History of Present illness Narrative* Genia Nuñez RN - 12/10/2022 12:17 PM EDT [facility] Telephonic Outreach Provider Action/FYI Contacted for: Routine Telephonic Outreach Contact made with patient: No, left message. Genia Nuñez RN December 10, 2022 12:21 PM documented in this encounterMercy [facility]10-02-2023 Miscellaneous Notes* Telephone Encounter - Ute Vincent - 12/03/2022 8:07 AM EDT Patient has been identified by name and date of : No Patient phones for refill(s): Requested Prescriptions Pending Prescriptions Disp Refills furosemide (LASIX) 40 mg tablet [Pharmacy Med Name: furosemide 40 mg tablet] 90 tablet 11 Sig: TAKE ONE TABLET BY MOUTH DAILY AT 9AM Date of last office visit in primary care: 10/01/22 Last 2 Encounter Wt Readings: Date: Wt: 01/31/2022 58.1 kg (128 lb) 01/03/2022 55.8 kg (123 lb) Previous labs/tests for medication: Not applicable Please advise. Thank you. Ute Vincent documented in this encounterMercy [facility]09-20-2023 Miscellaneous Notes* Telephone Encounter - Dali Rice APRN.CNP - 11/21/2022 2:33 PM EDT Noted Dali Rice APRN.CNP * Telephone Encounter - Scot Wang LPN - 11/19/2022 6:45 PM EDT Pt returned call to office. Notified of provider's message. Pt states she will be into lab tomorrowto have labs done. Pt has appt scheduled for December with provider. CANDIE was 10/01/22. * Telephone Encounter - Kelsie Stafford LPN - 11/19/2022 3:18 PM EDT Per Dali Rice CNP: At appointment in September, she was told to go to get lab draw including drug screening so I could continue to prescribe lyrica. Made her aware that I would not continue to prescribe this without her being compliant with plan and showing up for appointments. She said she would and her boyfriend with her said they would go immediately but left without having this done. Discussed that this is considered a controlled substance so needs addressed as such. As lyrica can intensify depression and cause abnormal thinking, I am absolutely not prescribing this until she is seen, compliant with treatment plan, and those records are reviewed. Patient has been made aware of this in multiple messages. I alsowould not prescribe her prednisone until being seen as this can affect your emotional state as well. Attempted to contact pt multiple times with recording of person is not accepting calls at this time. Will send message to pt via youmag to contact office and speak with triage staff. Kelsie Stafford LPN documented in this encounterMercy Health [facility] Hospital09-19-2023 Miscellaneous Notes* Telephone Encounter - Kimberly Rice APRN.CNP - 11/20/2022 12:53 PM EDT Patient has been advised that there will be no refills of this medication until she is seen in the office. Kimberly Rice APRN.CNP * Telephone Encounter - Leola Shelley LPN - 11/20/2022 12:39 PM EDT Patient has been identified by name and date of : Yes Patient phones for refill(s): Requested Prescriptions Pending Prescriptions Disp Refills Pregabalin (LYRICA) 200 mg capsule Date of last office visit in primary care: 10/01/2022 Appt: n 12/05/2022 Last 2 Encounter Wt Readings: Date: Wt: 01/31/2022 58.1 kg (128 lb) 01/03/2022 55.8 kg (123 lb) Previous labs/tests for medication: Not applicable Please advise. Thank you. Leola Shelley LPN * Telephone Encounter - Genevieve Ervin - 11/19/2022 2:48 PM EDT Patient has been identified by name and date of : Yes Last office visit in this department: 03/15/2016 RX INSTRUCTIONS: Patient aware RX will be sent to pharmacy. No need to notify patient. Patient phones requesting refills as follows: Requested Prescriptions Pending Prescriptions Disp Refills Pregabalin (LYRICA) 200 mg capsule Please review and advise. Genevieve Ervin documented in this encounterMercy Health [facility]09-18-2023 Miscellaneous Notes* Telephone Encounter - Barb Quiñones APRN.CNP - 11/19/2022 2:09 PM EDT See other encounter. documented in this encounterMercy Health Def[facility] Hospital09-13-2023 Discharge summary Author Sánchez Bhatti [facility] November 14, 2022 3:02pm Note Date/Time November 14, 2022 11:31am [facility] Medical Records Department [address] [place] [address] Emergency Department Summary 11/14/22 MR#: [id number] Acct: [id number] Name: LEYDA LOPEZ Rep #:[id number] : 1960 61 From: Sánchez Bhatti DO PCP: DALI RICE CARPET BINDER-C Status:REG ER Location: ED HPI HPI - GI History of Present Illness Chief Complaint: Abd Pain Narrative Narrative: 61-year-old female with right-sided abdominal pain. To be in pain but is unableto give me much history. She keeps mumbling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 used this for years and needs to return the oxygen tanks. Uses a [employer] on [facility]. Psychiatric: Smokes marijuana regularly. States her anxiety and depression are very high with daughter being removed. Sleep: is described as normal Alcohol use: does not drink any alcohol Appetite: good Suicidal Thoughts: No suicidal or homicidal ideation, intent or plan Support: Comes from multiple sources including boyfriend REVIEW OF SYSTEMS See HPI PAST MEDICAL HISTORY Diagnosis Date Abdominal pain, right upper quadrant ADD (attention deficit disorder) Seeing psychiatry Anemia, unspecified Asthma Back pain chronic-Seeing Dr. Blankenship Bipolar affective disorder ([facility]) Chronic right shoulder pain Seeing Dr. Molina Closed dislocation of tarsometatarsal (joint) 01/18/2011 COPD (chronic obstructive pulmonary disease) ([facility]) Depressive disorder, not elsewhere classified 03/22/2005 Disorder of bone and cartilage, unspecified 02/09/2008 Distal radius fracture 01/05/2011 Dysuria Fibromyalgia GERD (gastroesophageal reflux disease) IBS (irritable bowel syndrome) Mitral regurgitation Severe Neck pain chronic-takes vicodin for this NSTEMI (non-ST elevated myocardial infarction) ([facility]) Seeing Dr. Hutton JD (obstructive sleep apnea) Other and unspecified hyperlipidemia Panic disorder without agoraphobia 03/22/2005 PMR (polymyalgia rheumatica) ([facility]) RA (rheumatoid arthritis) ([facility]) Unspecified essential hypertension 03/22/2005 PAST SURGICAL HISTORY Procedure Laterality Date COLONOSCOPY FLX DX W/COLLJ SPEC WHEN PFRMD 01/23/08 Normal COLONOSCOPY FLX DX W/COLLJ SPEC WHEN PFRMD 01/09/2012 Colonoscopy DIAGNOSTIC ARTHROSCOPY SHOULDER +- SYNOVIAL BX Right 04/10/2017 Right shoulder arthroscopy with open SAD and rotator cuff repair EGD TRANSORAL BIOPSY SINGLE/MULTIPLE 01/23/08 Minimal antral gastritis HEART CATHETERIZATION 01/2016 no intervention Partial hysterectomy still has ovaries PAST SURGICAL HISTORY OF 02/2016 total teeth extraction RMVL LENS MATERIAL PHACOFRAGMENTATION ASPIR 12/2010 Cataract Extraction RPR UMBILICAL HRNA 5 YRS/> REDUCIBLE 12/04/2016 Hernia repair, umbilical >5yr SURGICAL ARTHROSCOPY SHOULDER W/ROTATOR CUFF RPR Right 01/01/2018 Right shoulder arthroscopy SAD, Acromioplasty, debridement glenohumeral joint, biceps tenotomy, RCR, superior capsular reconstruction ALLERGIES Combid [Other], Ativan [Lorazepam], Baclofen, Methotrexate, Nadolol, Nexium [EsomeprazoleMagnesium], Penicillin G, and Propranolol MEDICATIONS tiZANidine (ZANAFLEX) 4 mg tablet TAKE ONE TABLET BY MOUTH AT BEDTIME NEEDED FOR MUSCLE SPASMS (VIAL) Pregabalin (LYRICA) 200 mg capsule Take 1 capsule by mouth three times daily for 30 days. meloxicam (MOBIC) 7.5 mg tablet Take 1 tablet by mouth once daily. SUMAtriptan (IMITREX) 50 mg tablet Take 1 tablet by mouth as needed for migraine headache (see administration instructions). START AT ONSET OF HEADACHE. MAY REPEAT DOSE AFTER 2 HOURS. furosemide (LASIX) 40 mg tablet TAKE ONE TABLET BY MOUTH DAILY AT 9AM loperamide (IMODIUM) 2 mg cap(s) Take 1 capsule by mouth three times daily as needed. fluticasone-salmeterol (ADVAIR, WIXELA) 250-50 mcg/dose inhaler Inhale 1 Puff as instructed twice daily. hydrOXYzine HCl (ATARAX) 50 mg tablet Take 1 tablet by mouth every 8 hours as needed for anxiety. colestipol (COLESTID) 1 gram tablet TAKE ONE TABLET BY MOUTH TWICE DAILY @ 9AM & 5PM escitalopram oxalate (LEXAPRO) 20 mg tablet Take 1 tablet by mouth once daily. DEXILANT 60 mg CpDM TAKE ONE CAPSULE BY MOUTH DAILY AT 9AM fluticasone (FLONASE) 50 mcg/actuation nasal spray INSTILL 2 SPRAYS IN EACH NOSTRIL ONCE DAILY RINSE MOUTH AFTER USE (BULK) omeprazole (PRILOSEC) 20 mg capsule Take 1 capsule by mouth daily before breakfast. 1/2 hr before meal. predniSONE (DELTASONE) 10 mg tablet Take 1 tablet by mouth once daily. amitriptyline (ELAVIL) 100 mg tablet Take 1 tablet by mouth daily at bedtime. lisinopril (ZESTRIL, PRINIVIL) 20 mg tablet Take 2 tablets by mouth once daily. hyoscyamine sublingual (LEVSIN SL) 0.125 mg Dissolve 1 tablet under the tongue three times daily asneeded. nitroglycerin sublingual (NITROSTAT) 0.4 mg SL tablet Dissolve 1 tablet under the tongue as needed for chest pain. If no pain relief call 911. atorvastatin (LIPITOR) 40 mg tablet TAKE ONE TABLET BY MOUTH DAILY AT 9PM AT BEDTIME ipratropium (ATROVENT) 0.02 % nebulizer solution Use 2.5 mL via nebulizer four times daily as needed for Wheezing/Shortness of Breath. Use over 5-15minutes. Dx:J45.40 ipratropium 20 mcg-albuterol 100 mcg (COMBIVENT RESPIMAT) 20-100 mcg/actuation inhaler Inhale 1 Puff as instructed four times daily. COMPOUNDED PRESCRIPTION Oxygen Conserving Device for Ambulation COMPOUNDED PRESCRIPTION Home concentrator Cholecalciferol, Vitamin D3, 2,000 unit tab Take 2 tablets by mouth once daily. FAMILY HISTORY Problem Relation Age of Onset Heart Father DC COPD Father other (Pulmonary fibrosis) Father COPD Mother Breast Cancer Mother Social History Tobacco Use Smoking status: Former Packs/day: 0.50 Types: Cigarettes Start date: 1973 Quit date: 03/04/1989 Years since quittin.6 Smokeless tobacco: Never Tobacco comments: Both parents smoked in childhood home. Lived with smoker as adult. Vaping Use Vaping Use: Never used Substance Use Topics Alcohol use: No Drug use: No PHYSICAL EXAM BP 118/78 Pulse 68 Temp 36.6 C (97.8 F) (Temporal) Resp 16 SpO2 96% General Appearance: in no acute distress, alert, Does not make eye contact often even with turning off lights Pysch: mood and affect broad and appropriate Skin: Skin color, texture, turgor normal for age; Eyes: conjunctiva pink and moist, no icterus, sclera white, non-injected Lungs: Lungs clear to auscultation. No wheezing, rhonchi, rales. Heart: RRR without murmur, gallop, or rubs. No ectopy Abdomen: Abdomen soft, non-tender. Bowel sounds normal. No masses, organomegaly Extremities: No deformities, edema, skin discoloration, clubbing or cyanosis. Good capillary refill. Musculoskeletal: spine with notable kyphosis Health maintenance reviewed with patient: COVID-19 VACCINE(1) Never done BP CONTROLLED (<130/80) Never done ALPHA-1 ANTITRYPSIN DEFICIENCY SCREENING Never done SHINGRIX VACCINE(1 of 2) Never done PNEUMOCOCCAL(2 - PCV) due on 01/28/2013 MAMMOGRAM due on 08/06/2017 COLORECTAL CANCER SCREENING due on 01/08/2022 INFLUENZA(1) due on 11/02/2022 ANNUAL PCP TEAM CHRONIC DISEASE VISIT due on 01/31/2023 SERUM CREATININE due on 01/31/2023 HEMOGLOBIN/HEMATOCRIT due on 01/31/2023 DIABETES SCREEN due on 01/31/2025 LIPID SCREEN due on 07/26/2026 DTAP,TDAP,TD(3 - Td or Tdap) due on 07/22/2028 SPIROMETRY Completed HEPATITIS C SCREENING Completed HIV SCREENING Completed PAP TESTING Discontinued HPV TESTING Discontinued DATA REVIEWED: No new labs ASSESSMENT/PLAN: 1. Essential hypertension - ICD9: 401.9, ICD10: I10 (primary diagnosis) - Controlled - Continue current medications can continue 1 tablet daily of lisinopril as currently taking - Recommend home blood pressure monitoring, to bring results to next visit - Encouraged sodium restriction, DASH or Mediterranean diet - Recommend regular aerobic exercise - LISINOPRIL 20 MG TABLET - COMP METABOLIC PANEL - CBC + DIFF 2. Hyperlipidemia, unspecified hyperlipidemia type - ICD9: 272.4, ICD10: E78.5 - Control undetermined, due for labs - Continue current medications - Counseled on healthy diet and regular exercise - Discussed need for and benefit of weight loss. No weight on file for this encounter. - COMP METABOLIC PANEL - LIPID PANEL BASIC 3. Fibromyalgia - ICD9: 729.1, ICD10: M79.7 - not filling lyrica until lab work is drawn including drug testing. Will need to also fill out non-narcotic [facility] agreement. - TOX SCREEN ROUT UR - PAIN PANEL, UR QUANT 4. Medication management - ICD9: V58.69, ICD10: Z79.899 As above - TOX SCREEN ROUT UR - PAIN PANEL, UR QUANT 5. Epigastric pain - ICD9: 789.06, ICD10: R10.13 - schedule with GI as previously ordered - COMP METABOLIC PANEL - CBC + DIFF - ENTERIC BACTERIAL PANEL BY PCR - C. DIFFICILE PCR - LIPASE BLD - AMYLASE BLD 6. Diarrhea, unspecified type - ICD9: 787.91, ICD10: R19.7 As above - COMP METABOLIC PANEL - CBC + DIFF - ENTERIC BACTERIAL PANEL BY PCR - C. DIFFICILE PCR 7. Encounter for screening for osteoporosis - ICD9: V82.81, ICD10: Z13.820 - with the worsening kyphosis this needs evaluated. - DXA-AXIAL SKELETON 8. Asymptomatic postmenopausal status - ICD9: V49.81, ICD10: Z78.0 - DXA-AXIAL SKELETON 9. Chronic back pain, unspecified back location, unspecified back pain laterality - ICD9: 724.5, 338.29, ICD10: M54.9, G89.29 Can take tylenol and ibuprofen for pain as indicated. Do not take more than recommended - XR LUMBAR GENERAL 3V AP/LAT/L5-S1 - XR THORACIC GENERAL 3V AP/LAT/SWIMMERS 10. Kyphosis, unspecified kyphosis type, unspecified spinal region - ICD9: 737.10, ICD10: M40.209 - XR LUMBAR GENERAL 3V AP/LAT/L5-S1 - XR THORACIC GENERAL 3V AP/LAT/SWIMMERS 11. Panic disorder without agoraphobia - ICD9: 300.01, ICD10: F41.0 - patient with increased anxiety with daughter's removal from home, needs to see psychiatry - CONSULT TO [facility] - Reviewed concept of neurochemical imbalance wth depression/anxiety, treatment options and benefits of counseling in combination with medication. Also reviewed benefits of sleep hygeine, diet and exercise - Instructed patient to contact office or [id number] after-hours promptly should condition worsen or any new symptoms appear. - Counseling Center [facility] and after hours crisis line 12. Moderate episode of recurrent major depressive disorder (HCC) - ICD9: 296.32, ICD10: F33.1 As above - CONSULT TO [facility] 13. Dizziness - ICD9: 780.4, ICD10: R42 - will need further evaluated at follow up appointment. 14. Light sensitivity - ICD9: 780.99, ICD10: R68.89 - schedule with your labor law professor Prescription instructions reviewed with patient as applicable. Potential red flag symptoms discussed with the patient. Reviewed appropriate action plan to take if red flag symptoms occur. Patient agreeable to treatment plan. Dali Rice APRN.CNP documented in this encounterMer[facility]07-28-2023 Miscellaneous Notes* Telephone Encounter - Ute Henry LPN - 09/28/2022 4:06 PM EDT Patient has been identified by name and date of : No Patient phones for refill(s): Requested Prescriptions Pending Prescriptions Disp Refills tiZANidine (ZANAFLEX) 4 mg tablet [Pharmacy Med Name: tizanidine 4 mg tablet] 30 tablet 11 Sig: TAKE ONE TABLET BY MOUTH AT BEDTIME NEEDED FOR MUSCLE SPASMS (VIAL) Date of last office visit in primary care: 11/30/22 , patient has an appointment on Saturday10/01/22 with Dali Rice Last 2 Encounter Wt Readings: Date: Wt: 01/31/2022 58.1 kg (128 lb) 01/03/2022 55.8 kg (123 lb) Previous labs/tests for medication: Not applicable Please advise. Thank you. Ute Henry LPN documented in this encounterMercy Health Defiance [facility]07-28-2023 History of Present illness Narrative* Genia Nuñez RN - 09/28/2022 10:55 AM EDT [facility] Telephonic Outreach Provider Action/FYI Left message Contacted for: Routine Telephonic Outreach Contact made with patient: No, left message. Genia Nuñez RN September 28, 2022 10:56 AM documented in this encounterMercy Health Defiance [facility]07-27-2023 History of Present illness Narrative* Ness Ferreira LPCC - 09/27/2022 8:28 AM EDT Behavioral Health Social Work Progress Note Patient identified for [facility] from: PCP Reason for referral: Resources Behavioral Health Resources: Psychology - talk therapy [facility] encounter type: MyChart Message Attempts to Outreach: 3 attempts Referral made: Psychology - Internal, Psychology - External Psychology-Internal referral type: Therapy Psychology-External referral type: Therapy Reason for external referral: Wait times at [facility] too long, Patient choice Final Disposition: Resources given Patient Discharged?: Yes Patient reported that caregiver was able to meet their needs today?: N/A therapist sent patient MyChart follow up message offering assistance with linkage to behavioral health services. BING Ferguson September 27, 2022 documented in this encounterMercy Health Def[facility]06-29-2023 History of Present illness Narrative* Genia Nuñez RN - 08/30/2022 10:41 AM EDT [facility] Telephonic Outreach Provider Action/FYI Ok Confirmed Meloxicam was sent to pharmacy SDOH completed Denies any concerns PCP message- patient request Patient requesting RX cane for more stable ambulation Please send to Son Contacted for: Routine Telephonic Outreach Contact made with patient: Yes Patient identified by name and date of . Discussed care with patient Are you experiencing any new or worsening symptoms you need to talk about today? No Disease Specific Do you check your blood pressure at home? No Do you have new or worsening shortness of breath with activity? No Do you have new or worsening trouble breathing while lying flat? No Do you have new or worsening swelling of legs, feet or ankles? No Do you feel like you are dehydrated for any reason, including not being able to eat or drink normally, or having less urine/much darker urine than normal for you? No Do you check your daily weight at home? No and Do you have new or worsening cough? No Do you have new or worsening wheezing? No Do you need to use your rescue (Albuterol) inhaler or nebulizer more often than normal? No Based on managed care liaison, the following disposition is advised: No symptoms or symptoms present, not severe. Routed to: No Action Needed JEREMY Education Provided this Outreach: Yes Genia Nuñez RN August 30, 2022 11:18 AM documented in this encounterMercy Health Defiance Hospital06-28-2023 Miscellaneous Notes* Telephone Encounter - Ca Valenzuela RN - 08/29/2022 12:42 PM EDT Patient has been identified by name and date of : Yes, Ca Valenzuela RN Date 08/29/2022 Time 12:38 pm Patient phones for refill(s): Requested Prescriptions Pending Prescriptions Disp Refills meloxicam (MOBIC) 7.5 mg tablet 30 tablet 1 Sig: Take 1 tablet by mouth once daily. Date of last office visit with pcp: 01/31/2022 Next appt: 10/01/2022 Last 2 Encounter Wt Readings: Date: Wt: 01/31/2022 58.1 kg (128 lb) 01/03/2022 55.8 kg (123 lb) Previous labs/tests for medication: Blood Pressure: BUN (mg/dL) Date Value 01/31/2022 25 08/11/2020 18 08/11/2020 19 Sodium (mmol/L) Date Value 01/31/2022 141 08/11/2020 145 08/11/2020 146 Last 1 Encounter BP Readings: Date: BP: 01/31/2022 128/80 Liver Function: ALT (U/L) Date Value 01/31/2022 18 08/11/2020 14 AST (U/L) Date Value 01/31/2022 25 08/11/2020 22 Please advise. Thank you. Ca Valenzuela, RN documented in this encounterMercy Health Def[facility]05-30-2023 History of Present illness Narrative* Coral Bull - 07/31/2022 12:28 PM EDT [facility] NAVIGATION OUTREACH Action/FYI Left message to review health maintenance. My chart message sent Patient Identified by Name and : NO Outreach Outcome/Action Unable to reach patient: Left message MyChart message sent Did you use a PCP flex slot to schedule this appointment? N/A Reason for Outreach Care Gap or Scheduling/Wellness visits Payer: Payor: [facility] MEDICARE / Plan: [facility] DUAL COMPLETE HMO POS SNP / Product Type: Medicare / Care Gap Reviewed:: N/A Reminder: Reminder note to check Health Maintenance for items below Health Maintenance items due: COVID-19 VACCINE(1) Never done BP CONTROLLED (<130/80) Never done ALPHA-1 ANTITRYPSIN DEFICIENCY SCREENING Never done SHINGRIX VACCINE(1 of 2) Never done PNEUMOCOCCAL(2 - PCV) due on 01/28/2013 MAMMOGRAM due on 08/06/2017 COLORECTAL CANCER SCREENING due on 01/08/2022 Navigation Signature: Coral Bull July 31, 2022 12:28 PM documented in this encounterMercy Health Defiance [facility]04-27-2023 Miscellaneous Notes* Telephone Encounter - Danni Cobian LPN - 06/28/2022 3:59 PM EDT Phone call to patient. She is only taking the Dexilant. Phone call to pharmacy to verify. Spoke with pharmacist, verbalized understanding, will d/c omeprazole. * Telephone Encounter - Velvet Palacio MD - 06/28/2022 3:53 PM EDT Please call pharmacy and find out which medication patient takes Regards, Velvet Palacio MD * Telephone Encounter - Geoffrey Barboza RN - 06/28/2022 11:04 AM EDT Jessy- [facility]- reports they have Rx's for patient for omeprazole and dexilant. Reports these are duplicate therapies. Asking if provider wants patient to take both of these. Please phone pharmacist with reply: [phone] documented in this encounterMercy Health Def[facility] Hospital04-27-2023 Miscellaneous Notes* Telephone Encounter - Lilliana Pruitt LPN - 06/28/2022 1:59 PM EDT Patient has been identified by name and date of : Yes, Provider Dr. Palacio Date 06/28/22 Time 1:59 pm Patient phones for refill(s): Requested Prescriptions Pending Prescriptions Disp Refills SUMAtriptan (IMITREX) 50 mg tablet 4 tablet 2 Sig: Take 1 tablet by mouth as needed for migraine headache (see administration instructions). START AT ONSET OF HEADACHE. MAY REPEAT DOSE AFTER 2 HOURS. Date of last office visit in primary care: 01/31/22 next apt 07/02/22 Last 2 Encounter Wt Readings: Date: Wt: 01/31/2022 58.1 kg (128 lb) 01/03/2022 55.8 kg (123 lb) Previous labs/tests for medication: Not applicable Thank you. Lilliana Pruitt LPN documented in this encounterVanessa Ville [id number] Miscellaneous Notes* Telephone Encounter - Lilliana Pruitt LPN - 06/28/2022 1:54 PM EDT Spoke with pt and information listed below given. Pt verbalizes understanding. Pt wants to discuss GI referral when she comes in on 07-02-22 for 6 month follow up. Lilliana Pruitt LPN * Telephone Encounter - Lilliana Pruitt LPN - 06/28/2022 8:52 AM EDT Left a message for pt to call the office and ask to speak to a nurse. Lilliana Pruitt LPN * Telephone Encounter - Dali Rice APRN.CNP - 06/28/2022 7:46 AM EDT Patient needs to reschedule appointment with GI regarding her diarrhea as it is not healthy to continue with immodium every day. Thank you Dali Rice APRN.CNP * Telephone Encounter - Leola Shelley LPN - 06/26/2022 4:33 PM EDT Patient has been identified by name and date of : Yes Patient phones for refill(s): Requested Prescriptions Pending Prescriptions Disp Refills loperamide (IMODIUM) 2 mg cap(s) [Pharmacy Med Name: Loperamide HCl 2 MG Oral Capsule] 30 capsule 0 Sig: Take 1 capsule by mouth three times daily as needed meloxicam (MOBIC) 7.5 mg tablet [Pharmacy Med Name: Meloxicam 7.5 MG Oral Tablet] 30 tablet 0 Sig: TAKE 1 TABLET BY MOUTH ONCE DAILY WITH FOOD FOR PAIN Date of last office visit in primary care: 01/31/2022 6 month follow-up: 07/02/2022 Last 2 Encounter Wt Readings: Date: Wt: 01/31/2022 58.1 kg (128 lb) 01/03/2022 55.8 kg (123 lb) Previous labs/tests for medication: Not applicable Please advise. Thank you. Leola Shelley LPN * Telephone Encounter - Shelby Acosta Pss - 06/26/2022 4:29 PM EDT Patient has been identified by name and date of : Yes Requested Prescriptions Pending Prescriptions Disp Refills loperamide (IMODIUM) 2 mg cap(s) [Pharmacy Med Name: Loperamide HCl 2 MG Oral Capsule] 30 capsule 0 Sig: Take 1 capsule by mouth three times daily as needed meloxicam (MOBIC) 7.5 mg tablet [Pharmacy Med Name: Meloxicam 7.5 MG Oral Tablet] 30 tablet 0 Sig: TAKE 1 TABLET BY MOUTH ONCE DAILY WITH FOOD FOR PAIN RX INSTRUCTIONS: Patient aware RX will be sent to pharmacy. No need to notify patient. Shelby Acosta Pss documented in this encounterMercy Health [facility]04-26-2023 History of Present illness Narrative* Hilda Chu RN - 06/27/2022 10:11 AM EDT [facility] Telephonic Outreach Provider Action/FYI Contacted for: Routine Telephonic Outreach Contact made with patient: No, left message. Hilda Chu RN June 27, 2022 10:30 AM documented in this encounterMercy Health [facility]04-25-2023 History of Present illness Narrative* Hilda Chu RN - 06/26/2022 11:48 AM EDT [facility] Telephonic Outreach Provider Action/FYI Mailbox is full Contacted for: Routine Telephonic Outreach Contact made with patient: No, unable to leave message. Will reattempt call Hilda Chu RN June 26, 2022 11:50 AM documented in this encounterMercy Health [facility]04-12-2023 History of Present illness Narrative* Hilda Chu RN - 06/13/2022 11:40 AM EDT [facility] TELEPHONIC OUTREACH Provider Action/FYI: Mailbox is full Contact made with patient: No - Unable to leave message Entered next patient outreach date for the following business day, if third call please enter next outreach date for one week in the Track Pt. Outreach - End Outreach documented in this encounterMercy Health [facility]04-11-2023 History of Present illness Narrative* Hilda Chu RN - 06/12/2022 3:09 PM EDT [facility] TELEPHONIC OUTREACH Provider Action/FYI: Mailbox is full, unable to leave message Contact made with patient: No - Unable to leave message Entered next patient outreach date for the following business day, if third call please enter next outreach date for one week in the Track Pt. Outreach - End Outreach documented in this [facility]04-01-2023 Miscellaneous Notes* Telephone Encounter - Ute Henry LPN - 06/02/2022 8:47 AM EDT Patient has been identified by name and date of : No Patient phones for refill(s): Requested Prescriptions Pending Prescriptions Disp Refills furosemide (LASIX) 40 mg tablet [Pharmacy Med Name: furosemide 40 mg tablet] 90 tablet 1 Sig: TAKE ONE TABLET BY MOUTH DAILY AT 9AM Date of last office visit in primary care: 01/31/22 Last 2 Encounter Wt Readings: Date: Wt: 01/31/2022 58.1 kg (128 lb) 01/03/2022 55.8 kg (123 lb) Previous labs/tests for medication: Not applicable Please advise. Thank you. Ute Henry LPN documented in this encounterMercy Health Def[facility] Hospital03-29-2023 History of Present illness Narrative* Hilda Chu RN - 05/30/2022 1:13 PM EDT [facility] TELEPHONIC OUTREACH Provider Action/FYI: Contact made with patient: No - Left message Rohan my name is Hilda Chu RN your Food Equipment Service Technician [facility] the [facility] I am calling today for your bi-weekly check in. I am sorry I missed your call. I will reach out to you again tomorrow. (if the third call I will reach out to you again next week) Enter next patient outreach date forthe following day using the Track Pt Outreach. End outreach. documented in this encounterMercy Health Defiance Hospital03-28-2023 History of Present illness Narrative* Hilda Chu RN - 05/29/2022 12:40 PM EDT [facility] TELEPHONIC OUTREACH Provider Action/FYI: Contact made with patient: No - Left message Rohan my name is Hilda Chu RN your Food Equipment Service Technician [facility] the [facility] I am calling today for your bi-weekly check in. I am sorry I missed your call. I will reach out to you again tomorrow. (if the third call I will reach out to you again next week) Enter next patient outreach date forthe following day using the Track Pt Outreach. End outreach. documented in this encounterMercy Health Def[facility] Hospital03-26-2023 Miscellaneous Notes* Telephone Encounter - Danni Esparza LPN - 05/27/2022 11:01 AM EDT Patient calling to see if the medication refill has been sent to her pharmacy. No new scripts at this time. Patient denies any new or worsening symptoms of which a provider is not aware:Yes pt will contact pcp office tomorrow during office hours for refill. Danni Esparza LPN documented in this encounterCleveland [id number] Miscellaneous Notes* Telephone Encounter - Kayla Montez LPN - 05/25/2022 2:30 PM EDT Last office visit: 01/31/22 Next appointment scheduled: 07/02/22 Patient phones requesting refills as follows: Requested Prescriptions Pending Prescriptions Disp Refills meloxicam (MOBIC) 7.5 mg tablet 30 tablet 0 Sig: Take 1 tablet by mouth once daily. for pain. Take with food. loperamide (IMODIUM) 2 mg cap(s) 30 capsule 0 Sig: Take 1 capsule by mouth three times daily as needed. Please review and advise. Kayla Montez LPN documented in this encounterMercy Health Defiance Hospital03-09-2023 Miscellaneous Notes* Telephone Encounter - Carmencita Dorantes - 05/10/2022 5:36 PM EST Patient has been identified by name and date of : Yes Last office visit in this department: 03/15/2016 RX INSTRUCTIONS: Patient aware RX will be sent to pharmacy. No need to notify patient. Please fax to [facility] at [phone] Patient phones requesting refills as follows: Requested Prescriptions Pending Prescriptions Disp Refills fluticasone-salmeterol (ADVAIR, WIXELA) 250-50 mcg/dose inhaler 60 Each 5 Sig: Inhale 1 Puff as instructed twice daily. hydrOXYzine HCl (ATARAX) 50 mg tablet 90 tablet 3 Sig: Take 1 tablet by mouth every 8 hours as needed for anxiety. Please review and advise. Carmencita Dorantes documented in this encounterMercy Health [facility]03-01-2023 History of Present illness Narrative* Hilda Chu RN - 05/02/2022 4:14 PM EST [facility] TELEPHONIC OUTREACH Provider Action/FYI: states when she bends over she gets SOB Stands up and in a minute it is gone Has had this in the past and it went away Started again 2 weeks ago Declined Virtualist Visit and assistance making Visit with PCP States she has had it before and if it gets worse she will call the doctor Contact made with patient: Yes Patient identified by name and . Discussed care with patient It s nice talking to you again. As a reminder, this is our bi-weekly check-in where I will be asking you questions about your health. This will only take a few minutes of your time. Is this a good time? Yes Symptoms What Chronic Disease(s) does the patient have: CHF, CKD, and COPD Do you check your blood pressures at home? No Do you have new or worse shortness of breath with activity? Yes for the past 2 weeks Do you have new or worsening trouble breathing while lying flat? No Do you have new or worsening swelling of legs, feet or ankles? No Do you feel like you are dehydrated for any reason, including not being able to eat or drink normally, or having less urine/much darker urine than normal for you? No Do you check your daily weight at home? No and Do you have new or worsening cough? No Do you have new or worsening wheezing? No Do you need to use your rescue (Albuterol) inhaler or nebulizer more often than normal? No Are you having any other symptoms that your PCP needs to know about? No Symptoms: Symptom Escalation JEREMY Education Ordered -: No The patient required an escalation for symptom(s)? No Medications Do you have any questions about taking your medication or which medications you should be on? No Do you need any medication refills at this time, including any of the medications you might take only when needed? No Social We would like to make sure you have what you need so that your basic needs are met- including your personal safety, food, housing, transportation and medications? Would you like to speak with a social work steam conditioning operator to help give you support for any of these needs? No It can be normal to feel anxious or down during a time like this. Would you like to talk to a mental health professional about how you have been feeling? No Closing Thank you for taking the time to talk with me today. We want to work with you to ensure that we arekeeping your medical condition(s) well-controlled and to keep you healthy and out of the doctor's office or hospital. It s also not too late for me to sign you up for automated weekly questionnaires through [employer]. This is an easy way for us to stay connected each week. Are you interested? No, I understand. We can always sign you up in the future if you change your mind. Just as a reminder, will continue to call you every other week to check in on your health. Our calls should take 10-15 minutes or less. Remember, if you have concerns in between our calls, please call your PCP's office right away. Thank you. Enter next patient outreach date for two weeks on the same day of the week as today in the Track PtOutreach and End outreach. documented in this encounterMercy Health Def[facility] Hospital02-21-2023 Miscellaneous Notes* Telephone Encounter - Eda Ortiz RN - 04/24/2022 5:16 PM EST Patient has been identified by name and date of : Yes, Provider Ganta Date 04/24/22 Time 517pm Patient phones for refill(s): Requested Prescriptions Pending Prescriptions Disp Refills meloxicam (MOBIC) 7.5 mg tablet 30 tablet 0 Sig: Take 1 tablet by mouth once daily. for pain. Take with food. SUMAtriptan (IMITREX) 50 mg tablet 4 tablet 2 Sig: Take 1 tablet by mouth as needed for migraine headache (see administration instructions). START AT ONSET OF HEADACHE. MAY REPEAT DOSE AFTER 2 HOURS. Date of last office visit in primary care: Last 2 Encounter Wt Readings: Date: Wt: 01/31/2022 58.1 kg (128 lb) 01/03/2022 55.8 kg (123 lb) Previous labs/tests for medication: Not applicable Please advise. Thank you. Eda Ortiz RN documented in this encounterMercy Health Defiance Hospital02-16-2023 History of Present illness Narrative* Hilda Chu RN - 04/19/2022 4:00 PM EST [facility] TELEPHONIC OUTREACH Provider Action/FYI: Contact made with patient: No - Left message Hello my name is Hilda Chu RN your Food Equipment Service Technician [facility] the [facility] I am calling today for your bi-weekly check in. I am sorry I missed your call. I will reach out to you again tomorrow. (if the third call I will reach out to you again next week) Enter next patient outreach date forthe following business day using the Track Pt Outreach. End outreach. documented in this encounterMercy Health [facility]02-03-2023 History of Present illness Narrative* Hilda Chu RN - 04/06/2022 12:41 PM EST [facility] TELEPHONIC OUTREACH Provider Action/FYI: Mailbox is full Contact made with patient: No - Unable to leave message Entered next patient outreach date for the following business day, if third call please enter next outreach date for one week in the Track Pt. Outreach - End Outreach documented in this encounterMercy Health [facility]02-02-2023 History of Present illness Narrative* Hilda Chu RN - 04/05/2022 2:40 PM EST [facility] TELEPHONIC OUTREACH Provider Action/FYI: Contact made with patient: No - Unable to leave message Entered next patient outreach date for the following business day, if third call please enter next outreach date for one week in the Track Pt. Outreach - End Outreach documented in this encounterMercy Health Defiance Hospital02-02-2023 Miscellaneous Notes* Telephone Encounter - Geoffrey Barboza RN - 04/05/2022 11:09 AM EST Patient returned call and given provider's message below with verbalized understanding. * Telephone Encounter - KRISS Finnegan - 04/05/2022 10:02 AM EST TC to patient and Trey answered, he will have patient call back at some point today to receive results. KRISS Finnegan * Telephone Encounter - Gustavo Wells RN - 04/03/2022 4:57 PM EST Tried calling Pt and significant other and both of their voice mails were full. Will need to call later. * Telephone Encounter - Velvet Palacio MD - 04/03/2022 4:[address] of the abdomen was normal Regards, Velvet Palacio MD * Telephone Encounter - Ness Ny Pss - 04/02/2022 4:24 PM EST Sara has a new phone and is having trouble signing on to her [facility]. Please review CT results and call patient regarding any kind of follow up. [phone] documented in this encounterMer[facility]01-25-2023 Miscellaneous Notes* Telephone Encounter - Latanya Valentin - 03/28/2022 12:16 PM EST Patient has been identified by name and date of : Yes Requested Prescriptions Pending Prescriptions Disp Refills tiZANidine (ZANAFLEX) 4 mg tablet 90 tablet 1 Sig: Take 1 tablet by mouth at bedtime as needed (muscle spasms). RX INSTRUCTIONS: Per Pharamcy, did not receive prescription on 03/13/22 and they need 90 days Pharmacy initiated this request. No need to notify patient. Latanya Christopher Pss documented in this encounterMercy [facility]01-16-2023 Miscellaneous Notes* Telephone Encounter - Lillaina Pruitt LPN - 03/19/2022 4:58 PM EST Left a message with information listed below for pt. Lilliana Pruitt LPN * Telephone Encounter - Velvet Palacio MD - 03/19/2022 4:53 PM EST On the ct the pancreas looked normal Regards, Velvet Palacio MD * Telephone Encounter - Lilliana Pruitt LPN - 03/19/2022 3:28 PM EST Pt called back and was not able to do the apt with [facility]. Her phone would not let her do it. She is calling for the CT results from 03-16-22. Pt asked the question she though she had a MRI done on Saturday. I let her know it was a CT and I did not see orders for a MRI. Please advisept with results. Please call pt on phone [phone]. Lilliana Pruitt LPN documented in this encounterMercy [facility]01-16-2023 Evaluation note* Diagnosis Stage 3a chronic kidney disease (HCC)- Primary documented in this encounter [facility]01-13-[facility]23 History of Present illness Narrative* Azeb Paez RT(R) - 03/16/2022 11:20 AM EST Radiology Service Progress Note PATIENT NAME: Leyda Lopez DATE OF SERVICE: March 16, 2022 TIME: 11:48 AM PATIENT IDENTITY VERIFICATION COMPLETED USING TWO (2) IDENTIFIERS: Name and Date of confirmedby patient verbally. FALL SCREENING: Has the patient had 2 falls in the last year or 1 fall with injury or currently using an Ambulatory Assistive Device (Walker, Cane, Wheelchair, Crutches, etc.)? No PATIENT GENDER DATA: Female. status: : No status: NO. PATIENT RELEVANT IMPLANT DATA REVIEWED: Yes RADIOLOGY DEPARTMENT: CT; Exam(s) Completed: Abdomen PERIPHERAL IV DATA: Not applicable SIGNED BY: RT Bhanu(R) March 16, 2022 11:48 AM documented in this encounterMercy Health [facility]01-09-2023 Miscellaneous Notes* Telephone Encounter - Ute Henry LPN - 03/12/2022 1:19 PM EST Patient has been identified by name and date of : No Patient phones for refill(s): Requested Prescriptions Pending Prescriptions Disp Refills tiZANidine (ZANAFLEX) 4 mg tablet 30 tablet 2 Sig: Take 1 tablet by mouth at bedtime as needed (muscle spasms). Date of last office visit in primary care: 01/31/2022 Last 2 Encounter Wt Readings: Date: Wt: 01/31/2022 58.1 kg (128 lb) 01/03/2022 55.8 kg (123 lb) Previous labs/tests for medication: Not applicable Please advise. Thank you. Ute Henry LPN * Telephone Encounter - Barby Abdi - 03/12/2022 12:47 PM EST Patient has been identified by name and date of : Yes, Provider [facility] phones for refill(s): Requested Prescriptions Pending Prescriptions Disp Refills tiZANidine (ZANAFLEX) 4 mg tablet 30 tablet 2 Sig: Take 1 tablet by mouth at bedtime as needed (muscle spasms). Date of last office visit in primary care: 01/31/22 Last 2 Encounter Wt Readings: Date: Wt: 01/31/2022 58.1 kg (128 lb) 01/03/2022 55.8 kg (123 lb) Previous labs/tests for medication: Not applicable Please advise. Thank you. Barby Abdi documented in this encounterMercy [facility]01-03-2023 Miscellaneous Notes* Telephone Encounter - Homa Martinez RN - 03/06/2022 12:32 PM EST Last Office Visit: 01/31/2022 Future Office Visit: 07/02/2022 Requested Prescriptions Pending Prescriptions Disp Refills meloxicam (MOBIC) 7.5 mg tablet 30 tablet 0 Sig: Take 1 tablet by mouth once daily. for pain. Take with food. SUMAtriptan (IMITREX) 50 mg tablet 4 tablet 2 Sig: Take 1 tablet by mouth as needed for migraine headache (see administration instructions). START AT ONSET OF HEADACHE. MAY REPEAT DOSE AFTER 2 HOURS. Date of Last Labs: 01/31/2022 documented in this encounterMer[facility]12-21-2022 Miscellaneous Notes* Telephone Encounter - Anne Marie Rivera LPN - 02/21/2022 3:55 PM EST Bernardo from [facility] calling for refill. CANDIE: 01/31/22 NOV: 07/02/22 Last Refill: 09/11/21 16ml 9 refills Anne Marie Rivera LPN documented in this encounterMer[facility]2022 Miscellaneous Notes* Telephone Encounter - Gustavo Wells RN - 02/17/2022 10:37 AM EST Patient has been identified by name and date of : Yes Patient phones for refill(s): Requested Prescriptions Pending Prescriptions Disp Refills Pregabalin (LYRICA) 200 mg capsule 90 capsule 5 Sig: Take 1 capsule by mouth three times daily for 180 days. Date of last office visit in primary care: 01/31/22 Future visit: 07/02/22 Last 2 Encounter Wt Readings: Date: Wt: 01/31/2022 58.1 kg (128 lb) 01/03/2022 55.8 kg (123 lb) Previous labs/tests for medication: Blood Pressure: BUN (mg/dL) Date Value 01/31/2022 25 08/11/2020 18 08/11/2020 19 Sodium (mmol/L) Date Value 01/31/2022 141 08/11/2020 145 08/11/2020 146 Last 1 Encounter BP Readings: Date: BP: 01/31/2022 128/80 Liver Function: ALT (U/L) Date Value 01/31/2022 18 08/11/2020 14 AST (U/L) Date Value 01/31/2022 25 08/11/2020 22 Please advise. Thank you. Gustavo Wells RN documented in this encounterMercy [facility]12-06-2022 Miscellaneous Notes* Telephone Encounter - Ute Henry LPN - 02/06/2022 11:29 AM EST Letter completed and signed and mailed per patient request. Ute Henry LPN * Telephone Encounter - Dali Rice APRN.CNP - 02/05/2022 4:36 PM EST Order placed please mail as requested. Dali Rice APRN.CNP * Telephone Encounter - Ca Valenzuela RN - 02/02/2022 9:36 AM EST Patient calls to request an order for a handicap placard be mailed to home address: [address] [place] [address] [address] [place], [place] [address] Pended order, Ca Valenzuela RN documented in this encounterMer[facility]12-01-2022 Miscellaneous Notes* Telephone Encounter - Michelle Beckham Ma - 02/01/2022 11:25 AM EST Patient notified. * Telephone Encounter - Dali Rice APRN.CNP - 02/01/2022 10:31 AM EST Kidney function is not normal but has not changed much over the past year. I gave her a month of 7.5mg to help with the pain until seen by rheumatology. Do not take any diclofenac, ibuprofen, or other anti-inflammatory while taking this. Thank you Dali Rice APRN.CNP * Telephone Encounter - Michelle Beckham Ma - 02/01/2022 9:49 AM EST Patient notified, asking if her kidney functions are ok, patient requesting RX of meloxicam until she is able to be seen by her arthritis DR. Please advise. * Telephone Encounter - Dali Rice APRN.CNP - 02/01/2022 9:28 AM EST Please let patient know that her lab work is similar to previous readings but her pancreatic enzymes are slightly elevated so I am ordering a CT of the abdomen with oral contrast to further evaluate this. Please cancel the upcoming RUQ US as this is no longer needed. Thank you Dali Rice APRN.CNP documented in this encounterMercy [facility]11-30-2022 History of Present illness Narrative* Dali Rice APRN.CNP - 01/31/2022 10:57 AM EST CC: Patient presents with: Recheck: Ongoing diarrhea, would like referral to Gi HPI Leyda Lopez is a 61 year old female who presents today for diarrhea that is chronic. Has had this for 40 years since being with her daughter. States that she will have small hard stools and then liquid stool. This will occur an average of 4 times a week. Last BM was soft non-formed and light brown in color. Says once a month it seems to bemore severe and her temperature will be 99.1. States she was told by previous PCP that she had a kink in her intestine, but this was over 10 years ago. Gallbladder was normal 1 year ago in [place] hepatobiliary study but did show sludge in [place]. Takes immodium when she has bouts of diarrhea, but does not take it daily. Last saw GI and general surgery over a year ago with recommendations of avoiding dairy products andto increase fiber in her diet which she sometimes follows but not daily. Has not followed up as directed. Does report some upper abdominal pain at times with heartburn and intermittent nausea. Denies any fever, chills, blood in stools, mucous in stools, vomiting, or dark sticky stools. Denies any alcohol usage. Had colonoscopy completed in 2011 which was normal but poor colon prep. REVIEW OF SYSTEMS General: no fevers, no chills, no night sweats, no recurrent infections, no change in appetite, no change in energy, and no significant changes in weight Respiratory: no cough, no wheezing, no shortness of breath, no hemoptysis Cardiovascular: no chest pain, no chest pressure, no palpitations, and no swelling GI: See HPI Neurologic: No headache, weakness, numbness, tingling, dizziness, syncope. PAST MEDICAL HISTORY Diagnosis Date Abdominal pain, right upper quadrant ADD (attention deficit disorder) Seeing psychiatry Anemia, unspecified Asthma Back pain chronic-Seeing Dr. Blankenship Bipolar affective disorder ([facility]) Chronic right shoulder pain Seeing Dr. Molina Closed dislocation of tarsometatarsal (joint) 01/18/2011 COPD (chronic obstructive pulmonary disease) ([facility]) Depressive disorder, not elsewhere classified 03/22/2005 Disorder of bone and cartilage, unspecified 02/09/2008 Distal radius fracture 01/05/2011 Dysuria Fibromyalgia GERD (gastroesophageal reflux disease) IBS (irritable bowel syndrome) Mitral regurgitation Severe Neck pain chronic-takes vicodin for this NSTEMI (non-ST elevated myocardial infarction) ([facility]) Seeing Dr. Hutton JD (obstructive sleep apnea) Other and unspecified hyperlipidemia Panic disorder without agoraphobia 03/22/2005 PMR (polymyalgia rheumatica) ([facility]) RA (rheumatoid arthritis) ([facility]) Unspecified essential hypertension 03/22/2005 PAST SURGICAL HISTORY Procedure Laterality Date COLONOSCOPY FLX DX W/COLLJ SPEC WHEN PFRMD 01/23/08 Normal COLONOSCOPY FLX DX W/COLLJ SPEC WHEN PFRMD 01/09/2012 Colonoscopy DIAGNOSTIC ARTHROSCOPY SHOULDER +- SYNOVIAL BX Right 04/10/2017 Right shoulder arthroscopy with open SAD and rotator cuff repair EGD TRANSORAL BIOPSY SINGLE/MULTIPLE 01/23/08 Minimal antral gastritis HEART CATHETERIZATION 01/2016 no intervention Partial hysterectomy still has ovaries PAST SURGICAL HISTORY OF 02/2016 total teeth extraction RMVL LENS MATERIAL PHACOFRAGMENTATION ASPIR 12/2010 Cataract Extraction RPR UMBILICAL HRNA 5 YRS/> REDUCIBLE 12/04/2016 Hernia repair, umbilical >5yr SURGICAL ARTHROSCOPY SHOULDER W/ROTATOR CUFF RPR Right 01/01/2018 Right shoulder arthroscopy SAD, Acromioplasty, debridement glenohumeral joint, biceps tenotomy, RCR, superior capsular reconstruction ALLERGIES Combid [Other], Ativan [Lorazepam], Baclofen, Methotrexate, Nadolol, Nexium [EsomeprazoleMagnesium], Penicillin G, and Propranolol MEDICATIONS loperamide (IMODIUM) 2 mg cap(s) Take 1 capsule by mouth three times daily as needed. diclofenac potassium (CATAFLAM) 50 mg tablet Take 1 tablet by mouth twice daily as needed (pain/inflammation). Take with food. SUMAtriptan (IMITREX) 50 mg tablet Take 1 tablet by mouth as needed for migraine headache (see administration instructions). START AT ONSET OF HEADACHE. MAY REPEAT DOSE AFTER 2 HOURS. hydrOXYzine HCl (ATARAX) 50 mg tablet Take 1 tablet by mouth every 8 hours as needed for anxiety. predniSONE (DELTASONE) 10 mg tablet Take 1 tablet by mouth once daily. amitriptyline (ELAVIL) 100 mg tablet Take 1 tablet by mouth daily at bedtime. furosemide (LASIX) 40 mg tablet Take 1 tablet by mouth once daily. lisinopril (ZESTRIL, PRINIVIL) 20 mg tablet Take 2 tablets by mouth once daily. tiZANidine (ZANAFLEX) 4 mg tablet Take 1 tablet by mouth at bedtime as needed (muscle spasms). hyoscyamine sublingual (LEVSIN SL) 0.125 mg Dissolve 1 tablet under the tongue three times daily asneeded. nitroglycerin sublingual (NITROSTAT) 0.4 mg SL tablet Dissolve 1 tablet under the tongue as needed for chest pain. If no pain relief call 911. colestipol (COLESTID) 1 gram tablet TAKE ONE TABLET BY MOUTH TWICE DAILY @ 9AM & 5PM atorvastatin (LIPITOR) 40 mg tablet TAKE ONE TABLET BY MOUTH DAILY AT 9PM AT BEDTIME escitalopram oxalate (LEXAPRO) 20 mg tablet Take 1 tablet by mouth once daily. fluticasone (FLONASE) 50 mcg/actuation nasal spray INSTILL 2 SPRAYS IN EACH NOSTRIL ONCE DAILY RINSE MOUTH AFTER USE (BULK) Pregabalin (LYRICA) 200 mg capsule Take 1 capsule by mouth three times daily for 180 days. Do not start before August 07, 2021. DEXILANT 60 mg CpDM TAKE ONE CAPSULE BY MOUTH DAILY AT 9AM fluticasone-salmeterol (ADVAIR, WIXELA) 250-50 mcg/dose inhaler Inhale 1 Puff as instructed twice daily. ipratropium (ATROVENT) 0.02 % nebulizer solution Use 2.5 mL via nebulizer four times daily as needed for Wheezing/Shortness of Breath. Use over 5-15minutes. Dx:J45.40 ipratropium 20 mcg-albuterol 100 mcg (COMBIVENT RESPIMAT) 20-100 mcg/actuation inhaler Inhale 1 Puff as instructed four times daily. COMPOUNDED PRESCRIPTION Oxygen Conserving Device for Ambulation COMPOUNDED PRESCRIPTION Home concentrator Cholecalciferol, Vitamin D3, 2,000 unit tab Take 2 tablets by mouth once daily. FAMILY HISTORY Problem Relation Age of Onset Heart Father DC COPD Father other (Pulmonary fibrosis) Father COPD Mother Breast Cancer Mother Social History Tobacco Use Smoking status: Former Packs/day: 0.50 Types: Cigarettes Start date: 1973 Quit date: 03/04/1989 Years since quittin.9 Smokeless tobacco: Never Tobacco comments: Both parents smoked in childhood home. Lived with smoker as adult. Vaping Use Vaping Use: Never used Substance Use Topics Alcohol use: No Drug use: No PHYSICAL EXAM BP 128/80 Pulse 72 Resp 16 Wt 58.1 kg (128 lb) BMI 26.75 kg/m General Appearance: well appearing, in no acute distress, alert Skin: Skin color, texture, turgor normal for age; Eyes: conjunctiva pink and moist, no icterus, sclera white, non-injected Lungs: Lungs clear to auscultation. No wheezing, rhonchi, rales. Heart: RRR without murmur, gallop, or rubs. No ectopy Abdomen: Abdomen soft, Bowel sounds normal. No masses, organomegaly, Tenderness to RUQ without guarding, grimacing, rebound pain, or rigidity ASSESSMENT/PLAN: 1. Diarrhea, unspecified type - ICD9: 787.91, ICD10: R19.7 (primary diagnosis) - chronic without change. Needs to follow back up with GI as ordered by them previously. Will do USif still has gallbladder sludge will reconsult her to General Surgery. - COMP METABOLIC PANEL - CBC + DIFF - CONSULT TO GASTROENTEROLOGY - US ABD RT UPPER QUADRANT - LIPASE BLD - AMYLASE BLD 2. Right upper quadrant abdominal tenderness without rebound tenderness - ICD9: 789.61, ICD10: R10.811 As above - US ABD RT UPPER QUADRANT - LIPASE BLD - AMYLASE BLD 3. Heartburn - ICD9: 787.1, ICD10: R12 - omeprazole as ordered - may need upper scope 4. Nausea - ICD9: 787.02, ICD10: R11.0 - possibly related to reflux, started on omeprazole. - US ABD RT UPPER QUADRANT - LIPASE BLD - AMYLASE BLD Prescription instructions reviewed with patient as applicable. Potential red flag symptoms discussed with the patient. Reviewed appropriate action plan to take if red flag symptoms occur. Patient agreeable to treatment plan. Dali Rice APRN.CNP documented in this encounterMer[facility]11-23-2022 Miscellaneous Notes* Telephone Encounter - Dali Rice APRN.CNP - 01/24/2022 2:23 PM EST If she is having abdominal pain, do not take the diclofenac. All this will be discussed at her appointment. Thank you Dali Rice APRN.CNP * Telephone Encounter - Janes Webb Ma - 01/24/2022 1:58 PM EST Patient notified, verbalized understanding and scheduled for next week with [facility]. Unable to close - states DR. Palacio has open note. Please review. * Telephone Encounter - Velvet Palacio MD - 01/24/2022 1:47 PM EST She needs to come in to discuss any referrals * Telephone Encounter - Geoffrey Barboza RN - 01/24/2022 1:30 PM EST Patient returned call and given provider's message below with verbalized understanding. Patient asking if provider could refer her to GI at [facility]. Reports she's had stomach issues since she was 18- diarrhea, abdominal pain. * Telephone Encounter - Gustavo Wells RN - 01/24/2022 1:03 PM EST Called and left a voicemail for the Patient to call back and ask for a nurse to receive the providers message. Gustavo Wells RN * Telephone Encounter - aDli Rice APRN.CNP - 01/24/2022 12:27 PM EST With her kidney function, anti-inflammatories are not a good prison choice. I gave her a few diclofenac pills to take but she needs to get her kidney function evaluated. Thank you Dali Rice APRN.MARIETTA * Telephone Encounter - Gustavo Wells RN - 01/24/2022 9:57 AM EST Pt called and is notified of providers message and instructions. Pt reports the Voltaren you can buy OTC and she has it and it doesn't work. She is asking if there is another antiinflammatory the provider could order. She states she can't move her wrists right now. Please call and advise. Gustavo Wells RN * Telephone Encounter - aDli Rice APRN.CNP - 01/24/2022 9:41 AM EST Imodium order sent. She was just on prednisone so I am sending an order for antiinflammatory pain gel she can use as needed to hand, wrists, and ankles. Thank you Dali Rice APRN.MARIETTA * Telephone Encounter - Ruth Tobar RN - 01/23/2022 2:57 PM EST Pt calling with 2 requests: Pt states the last 2 days her nerves have been getting to her and she has been having diarrhea. Sheis asking if Dr. Palacio or Dali Rice would reorder her imodium medication for her. Script pended. Pt asking if Dr. Palacio or Dali would consider ordering her another prednisone burst due to swelling in her wrist, fingers and ankles. She doesn't see rheumatology until April 2022. Please call pt with update. Thank you. documented in this encounterMercy [facility]11-02-2022 History of Present illness Narrative* Dali Rice APRN.CNP - 01/03/2022 1:12 PM EDT CC: Patient presents with: Recheck: Follow up HPI Leyda Lopez is a 61 year old female who presents today for migraines and hypertension Has a migraine every 2 weeks, takes her sumatriptan which resolves. Pain is described as a poundingto her forehead. This is usually accompanied with nausea and light sensitivity. This is resolved with her sumatriptan. Is on 75mg of amitriptyline for insomnia. Denies aura, weakness, numbness, confusion, difficulty speaking, difficulty swallowing or any otheraccompanying symptoms. HTN: Ms. Lopez indicates that she is feeling well and denies any symptoms referable to elevatedblood pressure. Specifically denies headache, chest pain, palpitations, dyspnea, and peripheral edema. Patient denies any side effects of her medication(s) and is compliant with their regimen. She does not check BP's generally. Leyda denies regular aerobic exercise. She watches her diet for sodium, low fat and low cholesterol some of the time. Last 3 Encounter BP Readings: Date: BP: 01/03/2022 128/80 07/26/2021 154/93[BP Reagan[ 06/26/2021 138/88 Has chronic joint pain to multiple joints and fibromyalgia. Has seen rheumatology for this in the past but has not seen them for years. Would like consulted to a new weather forcaster to try and help with chronic pain. Was on methotrexate previously but did not tolerate this. States the only thing that seems to work is a burst of steroids. Last burst was 2 months ago. Requesting cologuard: Denies any family history of cancer, personal history of polyps, or any bowelchanges. REVIEW OF SYSTEMS General: no fevers, no chills, no night sweats, no recurrent infections, no change in appetite, no change in energy, and no significant changes in weight Respiratory: no cough, no wheezing, no shortness of breath, no hemoptysis Cardiovascular: no chest pain, no chest pressure, no palpitations, and no swelling GI: No nausea, vomiting, or diarrhea Neurologic: No headache, weakness, dizziness, syncope. PAST MEDICAL HISTORY Diagnosis Date Abdominal pain, right upper quadrant ADD (attention deficit disorder) Seeing psychiatry Anemia, unspecified Asthma Back pain chronic-Seeing Dr. Blankenship Bipolar affective disorder ([facility]) Chronic right shoulder pain Seeing Dr. Molina Closed dislocation of tarsometatarsal (joint) 01/18/2011 COPD (chronic obstructive pulmonary disease) ([facility]) Depressive disorder, not elsewhere classified 03/22/2005 Disorder of bone and cartilage, unspecified 02/09/2008 Distal radius fracture 01/05/2011 Dysuria Fibromyalgia GERD (gastroesophageal reflux disease) IBS (irritable bowel syndrome) Mitral regurgitation Severe Neck pain chronic-takes vicodin for this NSTEMI (non-ST elevated myocardial infarction) ([facility]) Seeing Dr. Hutton JD (obstructive sleep apnea) Other and unspecified hyperlipidemia Panic disorder without agoraphobia 03/22/2005 PMR (polymyalgia rheumatica) ([facility]) RA (rheumatoid arthritis) ([facility]) Unspecified essential hypertension 03/22/2005 PAST SURGICAL HISTORY Procedure Laterality Date COLONOSCOPY FLX DX W/COLLJ SPEC WHEN PFRMD 01/23/08 Normal COLONOSCOPY FLX DX W/COLLJ SPEC WHEN PFRMD 01/09/2012 Colonoscopy DIAGNOSTIC ARTHROSCOPY SHOULDER +- SYNOVIAL BX Right 04/10/2017 Right shoulder arthroscopy with open SAD and rotator cuff repair EGD TRANSORAL BIOPSY SINGLE/MULTIPLE 01/23/08 Minimal antral gastritis HEART CATHETERIZATION 01/2016 no intervention Partial hysterectomy still has ovaries PAST SURGICAL HISTORY OF 02/2016 total teeth extraction RMVL LENS MATERIAL PHACOFRAGMENTATION ASPIR 12/2010 Cataract Extraction RPR UMBILICAL HRNA 5 YRS/> REDUCIBLE 12/04/2016 Hernia repair, umbilical >5yr SURGICAL ARTHROSCOPY SHOULDER W/ROTATOR CUFF RPR Right 01/01/2018 Right shoulder arthroscopy SAD, Acromioplasty, debridement glenohumeral joint, biceps tenotomy, RCR, superior capsular reconstruction ALLERGIES Combid [Other], Ativan [Lorazepam], Baclofen, Methotrexate, Nadolol, Nexium [EsomeprazoleMagnesium], Penicillin G, and Propranolol MEDICATIONS furosemide (LASIX) 40 mg tablet Take 1 tablet by mouth once daily. amitriptyline (ELAVIL) 50 mg tablet 1.5 tablets before bed. loperamide (IMODIUM) 2 mg cap(s) Take 1 capsule by mouth three times daily as needed. lisinopril (ZESTRIL, PRINIVIL) 20 mg tablet Take 2 tablets by mouth once daily. tiZANidine (ZANAFLEX) 4 mg tablet Take 1 tablet by mouth at bedtime as needed (muscle spasms). SUMAtriptan (IMITREX) 50 mg tablet Take 1 tablet by mouth as needed for migraine headache (see administration instructions). START AT ONSET OF HEADACHE. MAY REPEAT DOSE AFTER 2 HOURS. hyoscyamine sublingual (LEVSIN SL) 0.125 mg Dissolve 1 tablet under the tongue three times daily asneeded. predniSONE (DELTASONE) 20 mg tablet Take 1 tablet by mouth once daily. nitroglycerin sublingual (NITROSTAT) 0.4 mg SL tablet Dissolve 1 tablet under the tongue as needed for chest pain. If no pain relief call 911. colestipol (COLESTID) 1 gram tablet TAKE ONE TABLET BY MOUTH TWICE DAILY @ 9AM & 5PM atorvastatin (LIPITOR) 40 mg tablet TAKE ONE TABLET BY MOUTH DAILY AT 9PM AT BEDTIME escitalopram oxalate (LEXAPRO) 20 mg tablet Take 1 tablet by mouth once daily. fluticasone (FLONASE) 50 mcg/actuation nasal spray INSTILL 2 SPRAYS IN EACH NOSTRIL ONCE DAILY RINSE MOUTH AFTER USE (BULK) Pregabalin (LYRICA) 200 mg capsule Take 1 capsule by mouth three times daily for 180 days. Do not start before August 07, 2021. DEXILANT 60 mg CpDM TAKE ONE CAPSULE BY MOUTH DAILY AT 9AM fluticasone-salmeterol (ADVAIR, WIXELA) 250-50 mcg/dose inhaler Inhale 1 Puff as instructed twice daily. hydrOXYzine HCl (ATARAX) 25 mg tablet Take 2 tablets by mouth every 8 hours as needed. atenolol (TENORMIN) 50 mg tablet Take 1 tablet by mouth once daily. ipratropium (ATROVENT) 0.02 % nebulizer solution Use 2.5 mL via nebulizer four times daily as needed for Wheezing/Shortness of Breath. Use over 5-15minutes. Dx:J45.40 ipratropium 20 mcg-albuterol 100 mcg (COMBIVENT RESPIMAT) 20-100 mcg/actuation inhaler Inhale 1 Puff as instructed four times daily. COMPOUNDED PRESCRIPTION Oxygen Conserving Device for Ambulation COMPOUNDED PRESCRIPTION Home concentrator Cholecalciferol, Vitamin D3, 2,000 unit tab Take 2 tablets by mouth once daily. FAMILY HISTORY Problem Relation Age of Onset Heart Father DC COPD Father other (Pulmonary fibrosis) Father COPD Mother Breast Cancer Mother Social History Tobacco Use Smoking status: Former Packs/day: 0.50 Types: Cigarettes Start date: 1973 Quit date: 03/04/1989 Years since quittin.8 Smokeless tobacco: Never Tobacco comments: Both parents smoked in childhood home. Lived with smoker as adult. Vaping Use Vaping Use: Never used Substance Use Topics Alcohol use: No Drug use: No PHYSICAL EXAM BP 128/80 Pulse 80 Resp 16 Wt 55.8 kg (123 lb) BMI 25.71 kg/m General Appearance: well appearing, in no acute distress, alert Skin: Skin color, texture, turgor normal for age; Eyes: conjunctiva pink and moist, no icterus, sclera white, non-injected Neck: Thyroid normal size and symmetric without palpable nodules, No adenopathy Lymph nodes: No cervical lymphadenopathy and No supraclavicular lymphadenopathy Lungs: Lungs clear to auscultation. No wheezing, rhonchi, rales. Heart: RRR without murmur, gallop, or rubs. No ectopy Health maintenance reviewed with patient: BP CONTROLLED (<130/80) Never done ALPHA-1 ANTITRYPSIN DEFICIENCY SCREENING Never done MAMMOGRAM due on 08/06/2017 INFLUENZA(1) due on 11/02/2021 COLORECTAL CANCER SCREENING due on 01/08/2022 SHINGRIX VACCINE(1 of 2) due on 06/26/2022 COVID-19 VACCINE(1) due on 06/26/2022 PNEUMOCOCCAL(2 - PCV) due on 07/26/2022 ANNUAL PCP TEAM CHRONIC DISEASE VISIT due on 07/26/2022 SERUM CREATININE due on 07/26/2022 HEMOGLOBIN/HEMATOCRIT due on 07/26/2022 DIABETES SCREEN due on 07/26/2024 LIPID SCREEN due on 07/26/2026 DTAP,TDAP,TD(3 - Td or Tdap) due on 07/22/2028 SPIROMETRY Completed HEPATITIS C SCREENING Completed HIV SCREENING Completed PAP TESTING Discontinued HPV TESTING Discontinued DATA REVIEWED: No new labs ASSESSMENT/PLAN: 1. Essential hypertension - ICD9: 401.9, ICD10: I10 (primary diagnosis) - good control - Continue current medication(s) - Encouraged dietary sodium restriction/DASH diet - Recommended regular aerobic exercise. - Recommend home blood pressure monitoring, to bring results in on next visit - Goal of BP <130/80 2. Migraine without aura and without status migrainosus, not intractable - ICD9: 346.10, ICD10: G43.009 - sumatriptan refilled, amitriptyline increased to 100mg 1 tablet before bed. - go to Er for severe sudden headaches, weakness, numbness, confusion, difficulty speaking, or other urgent concern. 3. Chronic pain of multiple joints - ICD9: 719.49, 338.29, ICD10: M25.50, G89.29 - low dose burst of steroids given. - discussed with patient if she would get the BMP drawn as ordered, we could evaluate kidney function for possible meloxicam prescription - CONSULT TO RHEUM/IMMUN DISEASE 4. Arthritis - ICD9: 716.90, ICD10: M19.90 - CONSULT TO RHEUM/IMMUN DISEASE 5. Fibromyalgia - ICD9: 729.1, ICD10: M79.7 - CONSULT TO RHEUM/IMMUN DISEASE 6. Colon cancer screening - ICD9: V76.51, ICD10: Z12.11 - COLOGUARD Prescription instructions reviewed with patient as applicable. Potential red flag symptoms discussed with the patient. Reviewed appropriate action plan to take if red flag symptoms occur. Patient agreeable to treatment plan. Dali Rice APRN.CNP documented in this encounter[facility] Miscellaneous Notes* Telephone Encounter - Danni Cobian LPN - 12/21/2021 8:57 AM EDT Patient has been identified by name and date of : Yes Patient phones for refill(s): Requested Prescriptions Pending Prescriptions Disp Refills furosemide (LASIX) 40 mg tablet 30 tablet 12 Sig: Take 1 tablet by mouth once daily. Date of last office visit in primary care: 07/26/21 Please advise. Thank you. Danni Cobian LPN documented in this encounterMer[facility]10-18-2022 Miscellaneous Notes* Telephone Encounter - Lilliana Pruitt LPN - 12/19/2021 2:35 PM EDT Spoke with pt and information listed below given. Pt verbalizes understanding. Will discuss at her next apt. Lilliana Pruitt LPN * Telephone Encounter - Lilliana Pruitt LPN - 12/12/2021 4:17 PM EDT Left a message for pt to call the office and ask to speak to a nurse. Lilliana Pruitt LPN * Telephone Encounter - Dali Rice APRN.CNP - 12/07/2021 8:34 AM EDT Please let patient know if she is requiring immodium this often she needs an appointment to review this and most likely reconsulted to GI. Thank you Dali Rice APRN.CNP documented in this encounterMercy [facility]10-18-2022 History of Present illness Narrative* Eulalia Jeong RN - 12/19/2021 7:40 AM EDT INSIGHT CDM ESCALATION Provider Action/FYI: CHF CKD COPD Escalation to pool for symptoms that your PCP needs to know about, SOB, hydration concerns, wheezing, difficulty lying flat Of note, patient requested provider appt via mychart request, and is scheduled with [facility] provider 12/29/21 Call 1- left message Call 2- left message Mychart insight message sent Message received via: InSight - No contact made with patient Left Message for PatientFreddy Madrigal my name is Eulalia Jeong RN from the [facility]. I am calling about your responses to our InSight Home Monitoring questionnaire. Sorry I am not able to speak with you. If you have a problem that needs to be addressed by your physician please contact your PCP office--End Outreach documented in this [facility]10-14-2022 Miscellaneous Notes* Telephone Encounter - Leola Shelley LPN - 12/15/2021 2:32 PM EDT Duplicate request for Amitriptyline. Leola Shelley LPN documented in this [facility]10-14-2022 Miscellaneous Notes* Telephone Encounter - Leola Shelley LPN - 12/15/2021 2:31 PM EDT Patient has been identified by name and date of : Yes Patient phones for refill(s): Requested Prescriptions Pending Prescriptions Disp Refills amitriptyline (ELAVIL) 50 mg tablet 145 tablet 0 Si.5 tablets before bed. Date of last office visit in primary care: 07/26/2021 No future appt scheduled. Last 2 Encounter Wt Readings: Date: Wt: 07/26/2021 59 kg (130 lb) 06/26/2021 60.8 kg (134 lb) Previous labs/tests for medication: Blood Pressure: BUN (mg/dL) Date Value 07/26/2021 9 08/11/2020 18 08/11/2020 19 Sodium (mmol/L) Date Value 07/26/2021 142 08/11/2020 145 08/11/2020 146 Last 1 Encounter BP Readings: Date: BP: 07/26/2021 154/93[BP Reagan[ Please advise. Thank you. Leola Shelley LPN documented in this encounterMer[facility]10-03-2022 History of Present illness Narrative* Kelsea Brown APRN.CNP - 12/04/2021 5:53 PM EDT This is an [facility] eVisit note for Leyda Lopez eVisit/Questionnaire reviewed The chief complaint for the visit - Patient presents with: Dizziness Recommendations/Treatment plan - See My Chart Message to patient Time spent <1 min Kelsea Brown APRN.CNP documented in this encounterMercy [facility]09-09-2022 Miscellaneous Notes* Telephone Encounter - Lilliana Pruitt LPN - 11/10/2021 8:19 AM EDT Patient has been identified by name and date of : Yes Patient phones for refill(s): Requested Prescriptions Pending Prescriptions Disp Refills SUMAtriptan (IMITREX) 50 mg tablet 4 tablet 0 Sig: Take 1 tablet by mouth as needed for migraine headache (see administration instructions). START AT ONSET OF HEADACHE. MAY REPEAT DOSE AFTER 2 HOURS. Date of last office visit in primary care: 07/26/21 next apt 11/27/21 Last 2 Encounter Wt Readings: Date: Wt: 07/26/2021 59 kg (130 lb) 06/26/2021 60.8 kg (134 lb) Previous labs/tests for medication: Not applicable Thank you. Lilliana Pruitt LPN documented in this encounterMer[facility]09-08-2022 History of Present illness Narrative* Terri Johnston RN - 11/09/2021 4:00 PM EDT open in error documented in this encounterMercy [facility]09-08-2022 Miscellaneous Notes* Telephone Encounter - Danni Serrano MA - 11/09/2021 12:24 PM EDT NOV 11/27/21 Older CANDIE 07/26/21 Older Patient electronically sent a request for the following prescription(s) Requested Prescriptions Pending Prescriptions Disp Refills nitroglycerin sublingual (NITROSTAT) 0.4 mg SL tablet 25 tablet 1 Sig: Dissolve 1 tablet under the tongue as needed for chest pain. If no pain relief call 911. Patient aware RX will be sent to pharmacy. No need to notify patient. Please review. Danni Serrano MA documented in this encounterMercy [facility]09-08-2022 Miscellaneous Notes* Telephone Encounter - Rita Blanco MA - 11/09/2021 12:06 PM EDT Patient phones requesting different pharmacy Requested Prescriptions Pending Prescriptions Disp Refills hyoscyamine sublingual (LEVSIN SL) 0.125 mg 90 tablet 1 Please review and advise. Rita Blanco MA documented in this encounterMercy [facility]09-08-2022 History of Present illness Narrative* Terri Johnston RN - 11/09/2021 11:41 AM EDT INSIGHT CDM ESCALATION Provider Action/FYI: Unable to reach patient x 2, left VM sent my chart Message Message received via: InSight - No contact made with patient Left Message for PatientFreddy Madrigal my name is Terri Johnston RN from the [facility]. I am calling about your responses to our InSight Home Monitoring questionnaire. Sorry I am not able to speak with you. If you have a problem that needs to be addressed by your physician please contact your PCP office--End Outreach INSIGHT CDM ESCALATION Provider Action/FYI: h/o CHF,CKD,COPD Trigger: Are you having any new symptoms that your PCP needs to know about? Yes Do you have new or worse shortness of breath with activity? Yes Do you have new or worsening trouble breathing while lying flat? Yes Do you have new or worsening wheezing? Yes Unable to reach patient, left VM x 1 Pt has an upcoming appointment in Internal medicine on 11/27/21 with MANASA Pt sent a my chart message requesting Headache medication Message received via: InSight - No contact made with patient Left Message for PatientFreddy Madrigal my name is Terri Johnston RN [facility]. I am calling about your responses to our InSight Home Monitoring questionnaire. Sorry I am not able to speak with you. If you have a problem that needs to be addressed by your physician please contact your PCP office--End Outreach documented in this encounterMercy [facility]08-19-2022 Miscellaneous Notes* Telephone Encounter - Kayla Montez LPN - 10/20/2021 10:02 AM EDT Pharmacy calls in requesting the following refill(s): Requested Prescriptions Pending Prescriptions Disp Refills hyoscyamine sublingual (LEVSIN SL) 0.125 mg [Pharmacy Med Name: hyoscyamine 0.125 mg sublingual tablet] 90 tablet 1 Sig: DISSOLVE ONE TABLET UNDER THE TONGUE THREE TIMES DAILY @ 9AM-1PM-5PM (VIAL) documented in this encounterMercy [facility]08-16-2022 Miscellaneous Notes* Telephone Encounter - Radha Elliott Ma - 10/17/2021 11:58 AM EDT Patient last visit 07/26/21 Follow up appointment scheduled none Radha Elliott Ma documented in this encounterMercy [facility]08-12-2022 Miscellaneous Notes* Telephone Encounter - Liliana Short RN - 10/13/2021 6:40 PM EDT Allergies reviewed: Yes ALLERGIES Allergen Reactions Combid [Other] Intolerance lockjaw Ativan [Lorazepam] Mental Status Change, Vomiting mood swings Baclofen Mental Status Change angry,mood effect Methotrexate Vomiting abdomen pain,vomiting, sbo Nadolol Intolerance body burning,tingly Nexium [Esomeprazol* Other: See Comments reflux-no relief Penicillin G GI Upset patient reports these symptoms after medication was ordered Propranolol Intolerance fatigue,sleepy The following medications were verbally ordered by and read back to Dr. Melissa Rodríguez on 10/13/2021 at 6:56 PM by Liliana Short RN. Requested Prescriptions Signed Prescriptions Disp Refills escitalopram oxalate (LEXAPRO) 20 mg tablet 30 tablet 5 Sig: Take 1 tablet by mouth once daily. The prescription(s) were escripted to [facility]; Phone : [phone] by Liliana Short RN. Escript confirmed receipt from pharmacy at 6:52 PM Patient/Family notified: Yes Liliana Short RN documented in this encounterMercy Health [facility]08-12-2022 Miscellaneous Notes* Telephone Encounter - Gustavo Wells RN - 10/13/2021 10:05 AM EDT Pt called in and reports she is out of this medication. Patient has been identified by name and date of : Yes Patient phones for refill(s): Requested Prescriptions Pending Prescriptions Disp Refills escitalopram oxalate (LEXAPRO) 20 mg tablet [Pharmacy Med Name: Escitalopram Oxalate 20 MG Oral Tablet] 90 tablet 0 Sig: Take 1 tablet by mouth once daily Date of last office visit in primary care: 07/26/21 Future visit: none Last 2 Encounter Wt Readings: Date: Wt: 07/26/2021 59 kg (130 lb) 06/26/2021 60.8 kg (134 lb) Previous labs/tests for medication: Blood Pressure: BUN (mg/dL) Date Value 07/26/2021 9 08/11/2020 18 08/11/2020 19 Sodium (mmol/L) Date Value 07/26/2021 142 08/11/2020 145 08/11/2020 146 Last 1 Encounter BP Readings: Date: BP: 07/26/2021 154/93[BP Reagan[ Liver Function: ALT (U/L) Date Value 07/26/2021 16 08/11/2020 14 AST (U/L) Date Value 07/26/2021 23 08/11/2020 22 Please advise. Thank you. Gustavo Wells RN documented in this encounterMer[facility]08-05-2022 Miscellaneous Notes* Telephone Encounter - Gustavo Wells RN - 10/06/2021 11:36 AM EDT Pt called and is notified of providers results and instructions. Pt voices understanding. Gustavo Wells RN * Telephone Encounter - Dali Rice APRN.CNP - 10/06/2021 7:40 AM EDT Please let patient know that prednisone has been ordered as previous. Prednisone when taken often, can be very hard on the body. So, If she needs this again, she will need to be seen. Thank you Dali Rice APRN.MARIETTA * Telephone Encounter - Edith Babcock RN - 10/05/2021 4:34 PM EDT Patient calling with request for script for Prednisone for flare of pain and swelling in elbow, wrist and knee joints. If agree, please send to [facility] pharmacy. Edith Babcock RN documented in this encounterMercy Health [facility]08-04-2022 History of Present illness Narrative* Juan Hillman RN - 10/05/2021 11:31 AM EDT inSight CDM Engagement Provider Action/FYI: Call to Pt left a message to verify CHF/ COPD/ CKD or other symptoms, provided Insight Monitoring Questionnaire location reminder Contact Made with Patient: No, first attempt, left message. Rohan Crabtree John. This is Kady Martinez RN your Food Equipment Service Technician from the [facility]. I am calling to check in with you concerning the MyChart questionnaire you have been receiving from me. I will call you again and am looking forward to speaking with you. (Food Equipment Service Technician entersnext day in next patient outreach) Kady Martinez RN October 05, 2021 11:31 AM documented in this encounterMercy Health [facility]07-11-2022 Miscellaneous Notes* Telephone Encounter - Danni Serrano MA - 09/11/2021 1:48 PM EDT NOV none CANDIE 07/26/21 Patient electronically sent a request for the following prescription(s) Pending Prescriptions Disp Refills FLUTICASONE PROPIONATE 50 MCG/ACTUATION NASAL SPRAY,SUSPENSION 16 mL 9 Sig: INSTILL 2 SPRAYS IN EACH NOSTRIL ONCE DAILY RINSE MOUTH AFTER USE (BULK) KAYLEIGH: Yes Patient aware RX will be sent to pharmacy. No need to notify patient. Please review. Danni Serrano MA documented in this encounterMercy Health [facility]07-08-2022 Miscellaneous Notes* Telephone Encounter - Dali Rice APRN.CNP - 09/08/2021 3:46 PM EDT This should not be a daily medication. She needs evaluated. 4 tablets prescribed for now. Thank you Dali Rice APRN.CNP * Telephone Encounter - Danni Cobian LPN - 09/07/2021 1:13 PM EDT Patient states she takes them as directed. States unable to make it in at this time for an appointment. Advised patient due to frequent bad headaches she should have a follow up. * Telephone Encounter - Dali Rice APRN.CNP - 09/07/2021 12:39 PM EDT Please clarify how patient is taking this. Was just prescribed 5 weeks ago and is a new prescription. She also needs an appointment for her bad headaches since they are continuing. Thank you Dali Rice APRN.MARIETTA * Telephone Encounter - Anne Marie Rivera LPN - 09/07/2021 12:20 PM EDT Pt calling for medication refill CANDIE: 07/26/21 NOV: None scheduled Last Refill: 08/01/21 #9 1 refill Anne Marie Rivera LPN documented in this encounterMercy [facility]06-30-2022 History of Present illness Narrative* Juan Hillman RN - 08/31/2021 12:52 PM EDT inSight CDM Engagement Provider Action/FYI: Call to Pt unable to leave a message to verify CHF/ COPD/ CKD symptom status and needs. Contact Made with Patient: No, second attempt, left message. Rohan Lopez. This is Kady Martinez RN your Food Equipment Service Technician [facility] the [facility]. I am calling to check in with you concerning the MyChart questionnaire you have been receiving from me. I will call you again next week and am looking forward to speaking with you. (Food Equipment Service Technician enters next week's date in next patient outreach) Kady Martinez RN August 31, 2021 12:52 PM * Juan Hillman RN - 08/30/2021 4:06 PM EDT inSight CDM Engagement Provider Action/FYI: Call to Pt unable to leave a message to verify CHF/ COPD/ CKD symptom status and needs. Contact Made with Patient: No, first attempt, left message. Jalenjamarcus MooneyLeyda John. This is Kady Martinez RN your Food Equipment Service Technician [facility] the [facility]. I am calling to check in with you concerning the MyChart questionnaire you have been receiving from me. I will call you again tomorrow and am looking forward to speaking with you. (Food Equipment Service Technician enters next day in next patient outreach) Kady Martinez RN August 30, 2021 4:06 PM documented in this encounterMercy Health [facility]06-23-2022 Miscellaneous Notes* Telephone Encounter - Lynette Mejia APRN.CNP - 08/24/2021 9:31 AM EDT Yes, agree she does not need a BP check in the office. In her note from 07/26, Dali states that she would like her to monitor her BP at home and bring her results with her to her next visit. The following approved medication requests have been transmitted electronically. Signed Prescriptions Disp Refills tiZANidine (ZANAFLEX) 4 mg tablet 30 tablet 2 Sig: Take 1 tablet by mouth at bedtime as needed (muscle spasms). KAYLEIGH: No Authorizing Provider: VELVET PALACIO Ordering User: LYNETTE MEJIA APRN.CNP * Telephone Encounter - Ruth Tobar RN - 08/22/2021 4:43 PM EDT Patient called in to say someone from the office called her. Upon looking, it appears a Population Health Navigator called her to remind her that she is due for a BP check and a mammogram. Patient verbalized understanding but states she does not have transportation to get to office to get BP checked in the upcoming weeks. She states she has a home BP monitor and checks her BP with that at times. Instructed patient to call into PCP office later this week with more BP readings for PCP to review. Patient states her recent home BP was 106/89. Patient also requesting refill on her Zanaflex if provider agreeable. (pended) Last OV: 07/26/21, NOV: not scheduled. Last labs: 07/26/21. Ruth Tobar RN documented in this encounterMercy Health [facility]06-15-2022 Miscellaneous Notes* Telephone Encounter - Michelle Beckham Ma - 08/16/2021 4:14 PM EDT Patient has already picked medication from Pharmacy. * Telephone Encounter - Lilliana Pruitt LPN - 08/08/2021 4:31 PM EDT Left a message for pt to call the office and ask to speak to a triage nurse. Lilliana Pruitt LPN * Telephone Encounter - Ute Henry LPN - 08/01/2021 8:47 AM EDT Left message for patient to call back regarding migraine meds and what pharmacy. Ute Henry LPN * Telephone Encounter - Velvet Palacio MD - 07/28/2021 5:00 PM EDT If she wants for occasional use yes, 4 times a month but not on a daily basis * Telephone Encounter - Homa Martinez RN - 07/28/2021 12:20 PM EDT Patient calls and states that ever since she has had Covid she has been getting headaches every day. Patient states that her brother had given her Sumatriptan and that had worked for her headaches. Patient asking if provider could prescribe this for her? Please review and advise, Homa Martinez RN documented in this encounterMercy Health [facility]06-13-2022 Miscellaneous Notes* Telephone Encounter - Kayla Montez LPN - 08/14/2021 12:59 PM EDT Last office visit 08/23/2020 documented in this encounterMercy Health [facility]06-10-2022 History of Present illness Narrative* Nasrin Jenkins MA - 08/11/2021 3:31 PM EDT POPULATION HEALTH NAVIGATION OUTREACH Action/ Patient due for BP check and Mammogram Call placed to patient - voicemail full, unable to leave message [facility] message sent to patient Pt identified by name and : NO Outreach Outcome/Action Unable to reach patient: Phone number not valid / voicemail full TapCom[employer] message sent Did you use a PCP flex slot to schedule this appointment? N/A Reason for Outreach Care Gap or Scheduling/Wellness visits Payer: Payor: [facility] MEDICARE / Plan: [facility] DUAL COMPLETE HMO SNP / Product Type: Medicare / Care Gap Reviewed:: Breast Cancer screening Controlling Blood Pressure Reminder: Reminder note to check Health Maintenance for items below Health Maintenance items due: BP CONTROLLED (<130/80) Never done MAMMOGRAM due on 08/06/2017 Message Sent to Practice: No Navigation Signature: Nasrin Jenkins Population Health Navigator August 11, 2021 3:31 PM documented in this encounterMercy Health [facility] Hospital05-25-2022 Miscellaneous Notes* Telephone Encounter - Ute Henry LPN - 07/26/2021 2:48 PM EDT Patient was just in office for visit with Dali Rice and med has been sent to her pharmacy. Ute Henry LPN documented in this encounterMercy Health Defiance Hospital05-25-2022 History of Present illness Narrative* Dali Rice, SCRUBBER SYSTEM ATTENDANT.PLATE FILLER - 07/26/2021 1:27 PM EDT CC: Patient presents with: Recheck: Follow up HPI Leyda Lopez is a 60 year old female who presents today for follow up on hypertension and memory issues. Has not gotten any of the lab studies completed that were previously ordered in March, and at visit 4 weeks ago was told to get drawn. Still stating she feels like she is forgetting things at night like what she went into a room for. Is routinely taking 2 hydroxyzine and Lyrica TID. States she is going to get them drawn today. Discussed possibility of decreasing her hydroxyzine and Lyrica, but patient states no it really isn't that bad. Denies syncope, weakness, shortness of breath, or numbness/tingling. HTN: Ms. Lopez indicates that she is feeling well and denies any symptoms referable to elevatedblood pressure. Specifically denies headache, chest pain, palpitations, dyspnea and peripheral edema. Patient denies any side effects of her medication(s) and is compliant with their regimen. She does check BP's away from this office with average BP's in the 130s/70s but had one at 110s/80s and patient states she is dizzy. Leyda denies regular aerobic exercise. She watches her diet for sodium, low fat and low cholesterol some of the time. Last 3 Encounter BP Readings: Date: BP: 07/26/2021 162/84 06/26/2021 138/88 03/23/2021 138/82 Has chronic joint pain and fibromyalgia. States recently she has had an increase in pain and swollen joints that is intermittent. Is starting to get out more because the weather is better. Requestinga prednisone dose because this has helped her pain in the past. REVIEW OF SYSTEMS General: no fevers, no chills, no night sweats, no recurrent infections, no change in appetite, no change in energy and no significant changes in weight Respiratory: no cough, no wheezing, no shortness of breath, no hemoptysis Cardiovascular: no chest pain, no chest pressure, no palpitations and no swelling GI: No nausea, vomiting, or diarrhea Endocrine: no fatigue, no cold intolerance, no heat intolerance, no polyuria, no polyphagia and no polydipsia Neurologic: No weakness, numbness, tingling, dizziness, syncope. Short term and prison memory intact PAST MEDICAL HISTORY Diagnosis Date Abdominal pain, right upper quadrant ADD (attention deficit disorder) Seeing psychiatry Anemia, unspecified Asthma Back pain chronic-Seeing Dr. Blankenship Bipolar affective disorder ([facility]) Chronic right shoulder pain Seeing Dr. Molina Closed dislocation of tarsometatarsal (joint) 01/18/2011 COPD (chronic obstructive pulmonary disease) ([facility]) Depressive disorder, not elsewhere classified 03/22/2005 Disorder of bone and cartilage, unspecified 02/09/2008 Distal radius fracture 01/05/2011 Dysuria Fibromyalgia GERD (gastroesophageal reflux disease) IBS (irritable bowel syndrome) Mitral regurgitation Severe Neck pain chronic-takes vicodin for this NSTEMI (non-ST elevated myocardial infarction) ([facility]) Seeing Dr. Hutton JD (obstructive sleep apnea) Other and unspecified hyperlipidemia Panic disorder without agoraphobia 03/22/2005 PMR (polymyalgia rheumatica) ([facility]) RA (rheumatoid arthritis) ([facility]) Unspecified essential hypertension 03/22/2005 PAST SURGICAL HISTORY Procedure Laterality Date COLONOSCOPY FLX DX W/COLLJ SPEC WHEN PFRMD 01/23/08 Normal COLONOSCOPY FLX DX W/COLLJ SPEC WHEN PFRMD 01/09/2012 Colonoscopy DIAGNOSTIC ARTHROSCOPY SHOULDER +- SYNOVIAL BX Right 04/10/2017 Right shoulder arthroscopy with open SAD and rotator cuff repair EGD TRANSORAL BIOPSY SINGLE/MULTIPLE 01/23/08 Minimal antral gastritis HEART CATHETERIZATION 01/2016 no intervention Partial hysterectomy still has ovaries PAST SURGICAL HISTORY OF 02/2016 total teeth extraction RMVL LENS MATERIAL PHACOFRAGMENTATION ASPIR 12/2010 Cataract Extraction RPR UMBILICAL HRNA 5 YRS/> REDUCIBLE 12/04/2016 Hernia repair, umbilical >5yr SURGICAL ARTHROSCOPY SHOULDER W/ROTATOR CUFF RPR Right 01/01/2018 Right shoulder arthroscopy SAD, Acromioplasty, debridement glenohumeral joint, biceps tenotomy, RCR, superior capsular reconstruction ALLERGIES Combid [Other], Ativan [Lorazepam], Baclofen, Methotrexate, Nadolol, Nexium [EsomeprazoleMagnesium], Penicillin G, and Propranolol MEDICATIONS atorvastatin (LIPITOR) 40 mg tablet TAKE ONE TABLET BY MOUTH DAILY AT 9PM AT BEDTIME lisinopril (ZESTRIL, PRINIVIL) 20 mg tablet TAKE 1 AND 1/2 TABLETS BY MOUTH DAILY AT 9AM DEXILANT 60 mg CpDM TAKE ONE CAPSULE BY MOUTH DAILY AT 9AM fluticasone-salmeterol (ADVAIR, WIXELA) 250-50 mcg/dose inhaler Inhale 1 Puff as instructed twice daily. Pregabalin (LYRICA) 200 mg capsule Take 1 capsule by mouth three times daily for 30 days. loperamide (IMODIUM) 2 mg cap(s) Take 1 capsule by mouth three times daily as needed colestipol (COLESTID) 1 gram tablet Take 1 tablet by mouth twice daily. hydrOXYzine HCl (ATARAX) 25 mg tablet Take 2 tablets by mouth every 8 hours as needed. hyoscyamine sublingual (LEVSIN/SL) 0.125 mg Dissolve 1 tablet under the tongue three times daily. tiZANidine (ZANAFLEX) 4 mg tablet Take 1 tablet by mouth at bedtime as needed (muscle spasms). escitalopram oxalate (LEXAPRO) 20 mg tablet Take 1 tablet by mouth once daily. amitriptyline (ELAVIL) 50 mg tablet 1.5 tablets before bed. fluticasone (FLONASE) 50 mcg/actuation nasal spray Use 2 Sprays in each nostril once daily. Rinse mouth after use. furosemide (LASIX) 40 mg tablet Take 1 tablet by mouth once daily. atenolol (TENORMIN) 50 mg tablet Take 1 tablet by mouth once daily. nitroglycerin sublingual (NITROSTAT) 0.4 mg SL tablet Dissolve 1 tablet under the tongue as needed for Chest Pain. If no pain relief call 911. ipratropium (ATROVENT) 0.02 % nebulizer solution Use 2.5 mL via nebulizer four times daily as needed for Wheezing/Shortness of Breath. Use over 5-15minutes. Dx:J45.40 ipratropium 20 mcg-albuterol 100 mcg (COMBIVENT RESPIMAT) 20-100 mcg/actuation inhaler Inhale 1 Puff as instructed four times daily. COMPOUNDED PRESCRIPTION Oxygen Conserving Device for Ambulation COMPOUNDED PRESCRIPTION Home concentrator Cholecalciferol, Vitamin D3, 2,000 unit tab Take 2 tablets by mouth once daily. FAMILY HISTORY Problem Relation Age of Onset Heart Father DC COPD Father other (Pulmonary fibrosis) Father COPD Mother Breast Cancer Mother Social History Tobacco Use Smoking status: Former Smoker Packs/day: 0.50 Types: Cigarettes Start date: 1973 Quit date: 03/04/1989 Years since quittin.4 Smokeless tobacco: Never Used Tobacco comment: Both parents smoked in childhood home. Lived with smoker as adult. Vaping Use Vaping Use: Never used Substance Use Topics Alcohol use: No Drug use: No PHYSICAL EXAM BP 162/84 Pulse 88 Resp 16 Wt 59 kg (130 lb) BMI 27.17 kg/m General Appearance: well appearing, in no acute distress, alert Eyes: conjunctiva pink and moist, no icterus, sclera white, non-injected Neck: Thyroid normal size and symmetric without palpable nodules, No adenopathy Lymph nodes: No cervical lymphadenopathy and No supraclavicular lymphadenopathy Lungs: Lungs clear to auscultation. No wheezing, rhonchi, rales. Heart: RRR without murmur, gallop, or rubs. No ectopy Extremities: No deformities, edema, skin discoloration, clubbing or cyanosis. Good capillary refill. Musculoskeletal: No joint swelling, deformity, or tenderness Health maintenance reviewed with patient: BP CONTROLLED (<130/80) Never done PNEUMOCOCCAL(2 - PCV) due on 01/28/2013 MAMMOGRAM due on 08/06/2017 SHINGRIX VACCINE(1 of 2) due on 06/26/2022 COVID-19 VACCINE(1) due on 06/26/2022 SERUM CREATININE due on 08/11/2021 HEMOGLOBIN/HEMATOCRIT due on 08/11/2021 INFLUENZA(Season Ended) due on 11/02/2021 COLORECTAL CANCER SCREENING due on 01/08/2022 ANNUAL PCP TEAM CHRONIC DISEASE VISIT due on 06/26/2022 DIABETES SCREEN due on 08/12/2023 LIPID SCREEN due on 12/06/2024 DTAP,TDAP,TD(3 - Td or Tdap) due on 07/22/2028 SPIROMETRY Completed HEPATITIS C SCREENING Completed HIV SCREENING Completed PAP TESTING Discontinued HPV TESTING Discontinued DATA REVIEWED: No new labs ASSESSMENT/PLAN: 1. Essential hypertension - ICD9: 401.9, ICD10: I10 (primary diagnosis) - poor control - Encouraged dietary sodium restriction/DASH diet - Recommended regular aerobic exercise. - Recommend home blood pressure monitoring, to bring results in on next visit - Goal of BP <130/80 - LISINOPRIL 20 MG TABLET, increased dose - Nurse BP check in 2 weeks 2. Fibromyalgia - ICD9: 729.1, ICD10: M79.7 - needs to get previous labs drawn - Prednisone as prescribed - PREGABALIN 200 MG CAPSULE 3. Chronic pain of multiple joints - ICD9: 719.49, 338.29, ICD10: M25.50, G89.29 - as above 4. Poor short term memory - ICD9: 780.93, ICD10: R41.3 - needs to get previous lab work drawn - UA WITH CULTURE IF INDICATED - TOX SCREEN ROUT UR Prescription instructions reviewed with patient as applicable. Potential red flag symptoms discussed with the patient. Reviewed appropriate action plan to take if red flag symptoms occur. Patient agreeable to treatment plan. Dali Rice APRN.MARIETTA documented in this encounterMer[facility]-2022 Miscellaneous Notes* Telephone Encounter - Ute Henry LPN - 07/10/2021 8:07 AM EDT Patient has been identified by name and date of : Yes Patient phones for refill(s): Pending Prescriptions Disp Refills PREGABALIN 200 MG CAPSULE 90 capsule 0 Sig: TAKE ONE CAPSULE BY MOUTH THREE TIMES DAILY @ 9AM-1PM-5PM MORAIMA Class: C-V KAYLEIGH: Yes Date of last office visit in primary care: 06/26/2021 Last 2 Encounter Wt Readings: Date: Wt: 06/26/2021 60.8 kg (134 lb) 03/23/2021 65.8 kg (145 lb) Previous labs/tests for medication: Not applicable Please advise. Thank you. Ute Henry LPN documented in this encounterMer[facility]05-06-2022 Miscellaneous Notes* Telephone Encounter - Kellen Alexandra LPN - 07/07/2021 2:34 PM EDT Patient aware rx done yesterday. * Telephone Encounter - Lilliana Pruitt LPN - 07/06/2021 11:01 AM EDT Pt called checking status. Asking to be called when sent to the pharmacy. Lilliana Pruitt LPN * Telephone Encounter - Ca Valenzuela RN - 07/05/2021 3:36 PM EDT Patient has been identified by name and date of : Yes Patient phones for refill(s): Pending Prescriptions Disp Refills PREGABALIN 200 MG CAPSULE 90 capsule 0 Sig: Take 1 capsule by mouth three times daily for 30 days. MORAIMA Class: C-V KAYLEIGH: No Date of last office visit with pcp: 06/26/2021 Future appt: 07/26/2021 Last 2 Encounter Wt Readings: Date: Wt: 06/26/2021 60.8 kg (134 lb) 03/23/2021 65.8 kg (145 lb) Previous labs/tests for medication: Blood Pressure: BUN (mg/dL) Date Value 08/11/2020 18 08/11/2020 19 Sodium (mmol/L) Date Value 08/11/2020 145 08/11/2020 146 Last 1 Encounter BP Readings: Date: BP: 06/26/2021 138/88 Liver Function: ALT (U/L) Date Value 08/11/2020 14 AST (U/L) Date Value 08/11/2020 22 Please advise. Thank you. Ca Valenzuela RN documented in this encounterMer[facility]05-05-2022 Miscellaneous Notes* Telephone Encounter - LOVE Hi - 07/06/2021 7:27 PM EDT Patient has been identified by name and date of : Yes Last office visit in this department: 03/15/2016 RX INSTRUCTIONS: Patient aware RX will be sent to pharmacy. No need to notify patient. Patient phones requesting refills as follows: Pending Prescriptions Disp Refills PREGABALIN 200 MG CAPSULE 90 capsule 0 Sig: Take 1 capsule by mouth three times daily for 30 days. MORAIMA Class: C-V KAYLEIGH: No Please review and advise. LOVE Hi documented in this encounterMercy [facility]05-05-2022 Miscellaneous Notes* Telephone Encounter - Lilliana Pruitt LPN - 07/06/2021 11:02 AM EDT Pt called checking on status of rx. Pt asked to be called when sent to [facility] pharmacy. Lilliana Pruitt LPN * Telephone Encounter - Ute Henry LPN - 07/05/2021 4:45 PM EDT Patient has been identified by name and date of : Yes Patient phones for refill(s): Pending Prescriptions Disp Refills LOPERAMIDE 2 MG CAPSULE 30 capsule 0 Sig: Take 1 capsule by mouth three times daily as needed KAYLEIGH: Yes Date of last office visit in primary care: 06/26/2021 Last 2 Encounter Wt Readings: Date: Wt: 06/26/2021 60.8 kg (134 lb) 03/23/2021 65.8 kg (145 lb) Previous labs/tests for medication: Not applicable Please advise. Thank you. Ute Henry LPN documented in this encounterMer[facility]05-03-2022 Miscellaneous Notes* Telephone Encounter - Danni Serrano MA - 07/04/2021 9:32 AM EDT NOV 07/26/21 CANDIE 06/26/21 Patient electronically sent a request for the following prescription(s) Pending Prescriptions Disp Refills WIXELA INHUB 250 MCG-50 MCG/DOSE POWDER FOR INHALATION 3 Sig: INHALE ONE DOSE BY MOUTH TWICE DAILY RINSE AND GARGLE MOUTH AFTER USE WITH WATER (BULK) KAYLEIGH: Yes Patient aware RX will be sent to pharmacy. No need to notify patient. Please review. Danni Serrano MA documented in this encounterMercy [facility]04-25-2022 History of Present illness Narrative* Dali Krystal, SCRUBBER SYSTEM ATTENDANT.PLATE FILLER - 06/26/2021 1:53 PM EDT CC: Patient presents with: Recheck: Follow up HPI Leyda Lopez is a 60 year old female who presents today for follow up ion blood pressure and concerns for memory loss for the last year and seems to get worse over the last few months. Often forgets short term memories like why she went in a room or repeating herself. Also concerned with multiple joint pains. Did not get blood work completed as previously ordered. HTN: Ms. Lopez indicates that she is feeling well and denies any symptoms referable to elevatedblood pressure. Specifically denies headache, chest pain, palpitations, dyspnea and peripheral edema. Patient denies any side effects of her medication(s) and is compliant with their regimen. She does not check BP's generally. Leyda denies regular aerobic exercise. She watches her diet for sodium, low fat and low cholesterol some of the time. Last 3 Encounter BP Readings: Date: BP: 06/26/2021 144/98 03/23/2021 138/82 02/18/2021 140/84 Chronic joint pain: previously diagnosed with fibromyalgia, Denies any joint swelling, decrease in ROM, or redness. Take eusebio for this REVIEW OF SYSTEMS General: no fevers, no chills, no night sweats, no recurrent infections, no change in appetite, no change in energy and no significant changes in weight Respiratory: no cough, no wheezing, no shortness of breath, no hemoptysis Cardiovascular: no chest pain, no chest pressure, no palpitations and no swelling GI: Denies nausea, vomiting, abdominal pain, heartburn or constipation. : Denies difficulty urinating, pain with urination, or blood in urine. Endocrine: no fatigue, no weight gain, no weight loss, no cold intolerance, no heat intolerance, nopolyuria, no polyphagia and no polydipsia Neurologic: No headache, weakness, numbness, tingling, dizziness, syncope. PAST MEDICAL HISTORY Diagnosis Date Abdominal pain, right upper quadrant ADD (attention deficit disorder) Seeing psychiatry Anemia, unspecified Asthma Back pain chronic-Seeing Dr. Blankenship Bipolar affective disorder ([facility]) Chronic right shoulder pain Seeing Dr. Molina Closed dislocation of tarsometatarsal (joint) 01/18/2011 COPD (chronic obstructive pulmonary disease) ([facility]) Depressive disorder, not elsewhere classified 03/22/2005 Disorder of bone and cartilage, unspecified 02/09/2008 Distal radius fracture 01/05/2011 Dysuria Fibromyalgia GERD (gastroesophageal reflux disease) IBS (irritable bowel syndrome) Mitral regurgitation Severe Neck pain chronic-takes vicodin for this NSTEMI (non-ST elevated myocardial infarction) ([facility]) Seeing Dr. Hutton JD (obstructive sleep apnea) Other and unspecified hyperlipidemia Panic disorder without agoraphobia 03/22/2005 PMR (polymyalgia rheumatica) ([facility]) RA (rheumatoid arthritis) ([facility]) Unspecified essential hypertension 03/22/2005 PAST SURGICAL HISTORY Procedure Laterality Date COLONOSCOPY FLX DX W/COLLJ SPEC WHEN PFRMD 01/23/08 Normal COLONOSCOPY FLX DX W/COLLJ SPEC WHEN PFRMD 01/09/2012 Colonoscopy DIAGNOSTIC ARTHROSCOPY SHOULDER +- SYNOVIAL BX Right 04/10/2017 Right shoulder arthroscopy with open SAD and rotator cuff repair EGD TRANSORAL BIOPSY SINGLE/MULTIPLE 01/23/08 Minimal antral gastritis HEART CATHETERIZATION 01/2016 no intervention Partial hysterectomy still has ovaries PAST SURGICAL HISTORY OF 02/2016 total teeth extraction RMVL LENS MATERIAL PHACOFRAGMENTATION ASPIR 12/2010 Cataract Extraction RPR UMBILICAL HRNA 5 YRS/> REDUCIBLE 12/04/2016 Hernia repair, umbilical >5yr SURGICAL ARTHROSCOPY SHOULDER W/ROTATOR CUFF RPR Right 01/01/2018 Right shoulder arthroscopy SAD, Acromioplasty, debridement glenohumeral joint, biceps tenotomy, RCR, superior capsular reconstruction ALLERGIES Combid [Other], Ativan [Lorazepam], Baclofen, Methotrexate, Nadolol, Nexium [EsomeprazoleMagnesium], Penicillin G, and Propranolol MEDICATIONS colestipol (COLESTID) 1 gram tablet Take 1 tablet by mouth twice daily. hydrOXYzine HCl (ATARAX) 25 mg tablet Take 2 tablets by mouth every 8 hours as needed. hyoscyamine sublingual (LEVSIN/SL) 0.125 mg Dissolve 1 tablet under the tongue three times daily. Pregabalin (LYRICA) 200 mg capsule Take 1 capsule by mouth three times daily for 30 days. tiZANidine (ZANAFLEX) 4 mg tablet Take 1 tablet by mouth at bedtime as needed (muscle spasms). loperamide (IMODIUM A-D) 2 mg cap(s) Take 1 capsule by mouth three times daily as needed. escitalopram oxalate (LEXAPRO) 20 mg tablet Take 1 tablet by mouth once daily. lisinopril (ZESTRIL, PRINIVIL) 20 mg tablet Take 1.5 tablets by mouth once daily. atorvastatin (LIPITOR) 40 mg tablet Take 1 tablet by mouth daily at bedtime. amitriptyline (ELAVIL) 50 mg tablet 1.5 tablets before bed. Dexlansoprazole (DEXILANT) 60 mg CpDM Take 60 mg by mouth once daily. fluticasone-salmeterol (ADVAIR DISKUS) 250-50 mcg/dose inhaler Inhale 1 Puff as instructed twice daily. Rinse and gargle mouth after use with water. fluticasone (FLONASE) 50 mcg/actuation nasal spray Use 2 Sprays in each nostril once daily. Rinse mouth after use. furosemide (LASIX) 40 mg tablet Take 1 tablet by mouth once daily. atenolol (TENORMIN) 50 mg tablet Take 1 tablet by mouth once daily. nitroglycerin sublingual (NITROSTAT) 0.4 mg SL tablet Dissolve 1 tablet under the tongue as needed for Chest Pain. If no pain relief call 911. ipratropium (ATROVENT) 0.02 % nebulizer solution Use 2.5 mL via nebulizer four times daily as needed for Wheezing/Shortness of Breath. Use over 5-15minutes. Dx:J45.40 ipratropium 20 mcg-albuterol 100 mcg (COMBIVENT RESPIMAT) 20-100 mcg/actuation inhaler Inhale 1 Puff as instructed four times daily. COMPOUNDED PRESCRIPTION Oxygen Conserving Device for Ambulation COMPOUNDED PRESCRIPTION Home concentrator Cholecalciferol, Vitamin D3, 2,000 unit tab Take 2 tablets by mouth once daily. FAMILY HISTORY Problem Relation Age of Onset Heart Father [place] COPD Father other (Pulmonary fibrosis) Father COPD Mother Breast Cancer Mother Social History Tobacco Use Smoking status: Former Smoker Packs/day: 0.50 Types: Cigarettes Start date: 1973 Quit date: 03/04/1989 Years since quittin.3 Smokeless tobacco: Never Used Tobacco comment: Both parents smoked in childhood home. Lived with smoker as adult. Substance Use Topics Alcohol use: No Drug use: No PHYSICAL EXAM BP 144/98 Pulse 72 Resp 16 Wt 60.8 kg (134 lb) BMI 28.01 kg/m General Appearance: well appearing, in no acute distress, alert Eyes: conjunctiva pink and moist, no icterus, sclera white, non-injected Neck: Thyroid normal size and symmetric without palpable nodules, No adenopathy Lymph nodes: No cervical lymphadenopathy and No supraclavicular lymphadenopathy Lungs: Lungs clear to auscultation. No wheezing, rhonchi, rales. Heart: RRR without murmur, gallop, or rubs. No ectopy Musculoskeletal: No joint swelling, deformity, or tenderness Neurological: Gait normal. Sensation grossly intact. Clock drawing normal and 3/3 word recall Health maintenance reviewed with patient: COVID-19 VACCINE(1) Never done BP CONTROLLED (<130/80) Never done SHINGRIX VACCINE(1 of 2) Never done MAMMOGRAM due on 08/06/2017 SERUM CREATININE due on 08/11/2021 HEMOGLOBIN/HEMATOCRIT due on 08/11/2021 INFLUENZA(Season Ended) due on 11/02/2021 COLORECTAL CANCER SCREENING due on 01/08/2022 ANNUAL PCP TEAM CHRONIC DISEASE VISIT due on 06/26/2022 DIABETES SCREEN due on 08/12/2023 LIPID SCREEN due on 12/06/2024 DTAP,TDAP,TD(3 - Td or Tdap) due on 07/22/2028 SPIROMETRY Completed HEPATITIS C SCREENING Completed HIV SCREENING Completed MENINGOCOCCAL CONJUGATE Aged Out PAP TESTING Discontinued HPV TESTING Discontinued DATA REVIEWED: No new labs ASSESSMENT/PLAN: 1. Essential hypertension - ICD9: 401.9, ICD10: I10 (primary diagnosis) - suboptimal control - Continue current medication(s) - Encouraged dietary sodium restriction/DASH diet - Recommended regular aerobic exercise. - Recommend home blood pressure monitoring, to bring results in on next visit - Goal of BP <130/80 2. Poor short term memory - ICD9: 780.93, ICD10: R41.3 - discussed with patient that the lyrica or hydroxyzine might be causing some of this , but patientdoes not want to change medications at this time - VITAMIN B12 BLOOD - TSH BLD - SED RATE WESTERGREN - C-REACTIVE PROTEIN (CRP) 3. Chronic pain of multiple joints - ICD9: 719.49, 338.29, ICD10: M25.50, G89.29 - patient asking for more medication to help with this, but need to evaluate for autoimmune disorder and also kidney function in case mobic might be an option. - SED RATE WESTERGREN - C-REACTIVE PROTEIN (CRP) Prescription instructions reviewed with patient as applicable. Potential red flag symptoms discussed with the patient. Reviewed appropriate action plan to take if red flag symptoms occur. Patient agreeable to treatment plan. Dali Rice APRN.CNP documented in this encounterMer[facility]04-22-2022 Miscellaneous Notes* Telephone Encounter - Kayla Montez LPN - 06/23/2021 11:17 AM EDT Last office visit 08/23/2020 Patient phones requesting refills as follows: Pending Prescriptions Disp Refills COLESTIPOL 1 GRAM TABLET 60 tablet 2 Sig: Take 1 tablet by mouth twice daily. KAYLEIGH: No Please review and advise. Kayla Montez LPN documented in this encounterMercy [facility]04-22-2022 Miscellaneous Notes* Telephone Encounter - Lilliana Pruitt LPN - 06/23/2021 7:56 AM EDT Patient has been identified by name and date of : Yes Patient phones for refill(s): Pending Prescriptions Disp Refills HYDROXYZINE HCL 25 MG TABLET 90 tablet 5 Sig: Take 2 tablets by mouth every 8 hours as needed. KAYLEIGH: No Date of last office visit in primary care: 03/23/21 nex apt 06/26/21 Last 2 Encounter Wt Readings: Date: Wt: 03/23/2021 65.8 kg (145 lb) 02/18/2021 62.8 kg (138 lb 6.4 oz) Previous labs/tests for medication: Not applicable Thank you. Lilliana Pruitt LPN documented in this encounterMer[facility]04-20-2022 Miscellaneous Notes* Telephone Encounter - Kayla Montez LPN - 06/21/2021 8:28 AM EDT Levsin needs sent to mail away pharmacy. documented in this encounterMercy [facility]03-28-2022 Miscellaneous Notes* Telephone Encounter - Leola Shelley LPN - 05/29/2021 4:12 PM EDT Our office did receive your refill request for Escitalopram (lexapro), however a new prescription was sent to [facility] on 04/28/2021 for 30 tablets, 5 refills. Please check with your pharmacy. Leola Shelley LPN documented in this encounterMercy Health Def[facility]01-20-2022 History of Present illness Narrative* Kady Pablo RT(R) - 03/23/2021 12:20 PM EST Radiology Service Progress Note PATIENT NAME: Leyda Lopez DATE OF SERVICE: March 23, 2021 TIME: 12:13 PM PATIENT IDENTITY VERIFICATION COMPLETED USING TWO (2) IDENTIFIERS: Name and Date of confirmedby patient verbally. FALL SCREENING: Has the patient had 2 falls in the last year or 1 fall with injury or currently using an Ambulatory Assistive Device (Walker, Cane, Wheelchair, Crutches, etc.)? No PATIENT GENDER DATA: Female. status: : No status: NO. PATIENT RELEVANT IMPLANT DATA REVIEWED: Not Applicable RADIOLOGY DEPARTMENT: General X-ray: Exam(s) Completed: Chest X-Ray PERIPHERAL IV DATA: Not applicable SIGNED BY: RT Cory(R) March 23, 2021 12:13 PM documented in this encounterMercy Health [facility]11-10-2021 Miscellaneous Notes* Telephone Encounter - Joelle Pruitt LPN - 01/11/2021 9:10 AM EST Patient seen Urgent Care 01/10/21 awaiting Covid testing results, pending 01/11/21. Joelle Pruitt LPN documented in this encounterMercy Health [facility]10-24-2016 History of Past illness Narrative* Problem Noted Date Resolved Date Chronic obstructive pulmonary disease 12/26/2015 03/15/2016 Coronary artery disease invo lving [place] coronary artery of [place] heart with angina pectoris 12/26/2015 06/07/2017 Atypical chest pain 12/26/2015 06/07/2017 Chronic right shoulder pain 07/14/2015 09/0 07/2016 SUMMARY 03/27/2015 10/25/2017 Overview: Leyda Lopez is a 54 year old female with COPD, asthma, sleep apnea, HTN, but no other previously known cardiac disease (echo 08/2014 showed normal LV function only mild MR and trivial TR with normal nuclear stress test) Now a transfer from OSH for due to Echo findings of severe MR and LHC with lesion of the ramus intermediate. She has been transferred to [facility] due to moderate disease in the ramus intermedius. NSTEMI (non-ST elevated myocardial infarction) 0 03/25/2015 05/21/2018 Overview: ASA 81 Atorvastatin 40 Lisinopril 40 Last Assessment & Plan: She takes the lisinopril the statin and the ASA. Neck pain, chronic 02/22/2015 11/06/2016 Non-ST elevation myocardial infarction (NSTEMI), initial episode of care 08/04/2014 05/21/2018 Overview: -Pt transferred to [facility] for NSTEMI? In setting of EKG abnormality and elevated troponin I, thought to be primary ACS vs 2/2 to increase in cardiac demand in setting of sepsis -PT never had CP OSH w/u -EKG --T wave changes in lateral leads -Elevated troponin I, Ck MB WNL -ECHO/Doppler --> Segmental wall motion abnormalities, EF 50%, +2 MR & TR, RVSP 38, no shunt -CTA 07/26/2014 --> No PE, no aortic dissection, Diffuse pulmonary infiltrates, cardiomegaly with evidence of RSHF -Started on Heparin gtt RF: HTN, ex smoker, FH of CAD (father <60 years), Off statins for long time, till restarted in the OSH, denies DM Plan -Trend CE x3 -High intensity statins, Lipitor 80mg QD -Tight BP control -Will hold off heparin, given that the pt is CP free -ECHO -Depending on ECHO results will proceed with either NM stress test or LHC Last Assessment & Plan: PMR (polymyalgia rheumatica) 07/20/2013 Polymyositis 09/29/2011 05/21/2018 Elevated blood pressure 09/09/2011 12/02/19 14 Chronic pain 04/18/2011 11/06/2016 Last Assessment & Plan: Takes ultram for chronic pains, myalgias and joint pains. Takes 2 tabs qid. States this does help with her pains. Dysphagia 10/25/2010 12/01/2013 Hypokalemia 10/04/2010 12/01/2013 Left Plantar fasciitis 10/04/2010 4 Bipolar affective 04/27/2010 05/21/2018 Overview: Continue Diazepam 10mg BID CRI (chronic renal insufficiency) 09/30/2009 12/01/2013 ANEMIA BLOOD LOSS CHRONIC 12/23/20072013 documented as of this encounter (statuses as of 05/29/2021) [facility] History of Past illness Narrative* Problem Noted Date Resolved Date Chronic obstructive pulmonary disease 12/26/2015 03/15/2016 Coronary artery disease invo lving [place] coronary artery of [place] heart with angina pectoris 12/26/2015 06/07/2017 Atypical chest pain 12/26/2015 06/07/2017 Chronic right shoulder pain 07/14/20150 07/2016 SUMMARY 03/27/2015 10/25/2017 Overview: Leyda Lopez is a 54 year old female with COPD, asthma, sleep apnea, HTN, but no other previously known cardiac disease (echo 08/2014 showed normal LV function only mild MR and trivial TR with normal nuclear stress test) Now a transfer from OSH for due to Echo findings of severe MR and LHC with lesion of the ramus intermediate. She has been transferred to [facility] due to moderate disease in the ramus intermedius. NSTEMI (non-ST elevated myocardial infarction) 0 03/25/2015 05/21/2018 Overview: ASA 81 Atorvastatin 40 Lisinopril 40 Last Assessment & Plan: She takes the lisinopril the statin and the ASA. Neck pain, chronic 02/22/2015 11/06/2016 Non-ST elevation myocardial infarction (NSTEMI), initial episode of care 08/04/2014 05/21/2018 Overview: -Pt transferred to [facility] for NSTEMI? In setting of EKG abnormality and elevated troponin I, thought to be primary ACS vs 2/2 to increase in cardiac demand in setting of sepsis -PT never had CP OSH w/u -EKG --T wave changes in lateral leads -Elevated troponin I, Ck MB WNL -ECHO/Doppler --> Segmental wall motion abnormalities, EF 50%, +2 MR & TR, RVSP 38, no shunt -CTA 07/26/2014 --> No PE, no aortic dissection, Diffuse pulmonary infiltrates, cardiomegaly with evidence of RSHF -Started on Heparin gtt RF: HTN, ex smoker, FH of CAD (father <60 years), Off statins for long time, till restarted in the OSH, denies DM Plan -Trend CE x3 -High intensity statins, Lipitor 80mg QD -Tight BP control -Will hold off heparin, given that the pt is CP free -ECHO -Depending on ECHO results will proceed with either NM stress test or LHC Last Assessment & Plan: PMR (polymyalgia rheumatica) 07/20/2013 Polymyositis 09/29/2011 05/21/2018 Elevated blood pressure 09/09/2011 12/02/19 14 Chronic pain 04/18/2011 11/06/2016 Last Assessment & Plan: Takes ultram for chronic pains, myalgias and joint pains. Takes 2 tabs qid. States this does help with her pains. Dysphagia 10/25/2010 12/01/2013 Hypokalemia 10/04/2010 12/01/2013 Left Plantar fasciitis 10/04/2010 4 Bipolar affective 04/27/2010 05/21/2018 Overview: Continue Diazepam 10mg BID CRI (chronic renal insufficiency) 09/30/2009 12/01/2013 ANEMIA BLOOD LOSS CHRONIC 12/23/20072013 documented as of this encounter (statuses as of 05/31/2021) [facility] History of Past illness Narrative* Problem Noted Date Resolved Date Chronic obstructive pulmonary disease 12/26/2015 03/15/2016 Coronary artery disease invo lving [place] coronary artery of [place] heart with angina pectoris 12/26/2015 06/07/2017 Atypical chest pain 12/26/2015 06/07/2017 Chronic right shoulder pain 07/14/201507/2016 SUMMARY 03/27/2015 10/25/2017 Overview: Leyda Lopez is a 54 year old female with COPD, asthma, sleep apnea, HTN, but no other previously known cardiac disease (echo 08/2014 showed normal LV function only mild MR and trivial TR with normal nuclear stress test) Now a transfer from OSH for due to Echo findings of severe MR and LHC with lesion of the ramus intermediate. She has been transferred to [facility] due to moderate disease in the ramus intermedius. NSTEMI (non-ST elevated myocardial infarction) 0 03/25/2015 05/21/2018 Overview: ASA 81 Atorvastatin 40 Lisinopril 40 Last Assessment & Plan: She takes the lisinopril the statin and the ASA. Neck pain, chronic 02/22/2015 11/06/2016 Non-ST elevation myocardial infarction (NSTEMI), initial episode of care 08/04/2014 05/21/2018 Overview: -Pt transferred to [facility] for NSTEMI? In setting of EKG abnormality and elevated troponin I, thought to be primary ACS vs 2/2 to increase in cardiac demand in setting of sepsis -PT never had CP OSH w/u -EKG --T wave changes in lateral leads -Elevated troponin I, Ck MB WNL -ECHO/Doppler --> Segmental wall motion abnormalities, EF 50%, +2 MR & TR, RVSP 38, no shunt -CTA 07/26/2014 --> No PE, no aortic dissection, Diffuse pulmonary infiltrates, cardiomegaly with evidence of RSHF -Started on Heparin gtt RF: HTN, ex smoker, FH of CAD (father <60 years), Off statins for long time, till restarted in the OSH, denies DM Plan -Trend CE x3 -High intensity statins, Lipitor 80mg QD -Tight BP control -Will hold off heparin, given that the pt is CP free -ECHO -Depending on ECHO results will proceed with either NM stress test or LHC Last Assessment & Plan: PMR (polymyalgia rheumatica) 07/20/2013 Polymyositis 09/29/2011 05/21/2018 Elevated blood pressure 09/09/2011 12/02/19 14 Chronic pain 04/18/2011 11/06/2016 Last Assessment & Plan: Takes ultram for chronic pains, myalgias and joint pains. Takes 2 tabs qid. States this does help with her pains. Dysphagia 10/25/2010 12/01/2013 Hypokalemia 10/04/2010 12/01/2013 Left Plantar fasciitis 10/04/2010 4 Bipolar affective 04/27/2010 05/21/2018 Overview: Continue Diazepam 10mg BID CRI (chronic renal insufficiency) 09/30/2009 12/01/2013 ANEMIA BLOOD LOSS CHRONIC 12/23/20072013 documented as of this encounter (statuses as of 06/21/2021) [facility] History of Past illness Narrative* Problem Noted Date Resolved Date Chronic obstructive pulmonary disease 12/26/2015 03/15/2016 Coronary artery disease invo lving [place] coronary artery of [place] heart with angina pectoris 12/26/2015 06/07/2017 Atypical chest pain 12/26/2015 06/07/2017 Chronic right shoulder pain 07/14/2015 09/0 07/2016 SUMMARY 03/27/2015 10/25/2017 Overview: Leyda Lopez is a 54 year old female with COPD, asthma, sleep apnea, HTN, but no other previously known cardiac disease (echo 08/2014 showed normal LV function only mild MR and trivial TR with normal nuclear stress test) Now a transfer from OSH for due to Echo findings of severe MR and LHC with lesion of the ramus intermediate. She has been transferred to [facility] due to moderate disease in the ramus intermedius. NSTEMI (non-ST elevated myocardial infarction) 0 03/25/2015 05/21/2018 Overview: ASA 81 Atorvastatin 40 Lisinopril 40 Last Assessment & Plan: She takes the lisinopril the statin and the ASA. Neck pain, chronic 02/22/2015 11/06/2016 Non-ST elevation myocardial infarction (NSTEMI), initial episode of care 08/04/2014 05/21/2018 Overview: -Pt transferred to [facility] for NSTEMI? In setting of EKG abnormality and elevated troponin I, thought to be primary ACS vs 2/2 to increase in cardiac demand in setting of sepsis -PT never had CP OSH w/u -EKG --T wave changes in lateral leads -Elevated troponin I, Ck MB WNL -ECHO/Doppler --> Segmental wall motion abnormalities, EF 50%, +2 MR & TR, RVSP 38, no shunt -CTA 07/26/2014 --> No PE, no aortic dissection, Diffuse pulmonary infiltrates, cardiomegaly with evidence of RSHF -Started on Heparin gtt RF: HTN, ex smoker, FH of CAD (father <60 years), Off statins for long time, till restarted in the OSH, denies DM Plan -Trend CE x3 -High intensity statins, Lipitor 80mg QD -Tight BP control -Will hold off heparin, given that the pt is CP free -ECHO -Depending on ECHO results will proceed with either NM stress test or LHC Last Assessment & Plan: PMR (polymyalgia rheumatica) 07/20/2013 Polymyositis 09/29/2011 05/21/2018 Elevated blood pressure 09/09/2011 12/02/19 14 Chronic pain 04/18/2011 11/06/2016 Last Assessment & Plan: Takes ultram for chronic pains, myalgias and joint pains. Takes 2 tabs qid. States this does help with her pains. Dysphagia 10/25/2010 12/01/2013 Hypokalemia 10/04/2010 12/01/2013 Left Plantar fasciitis 10/04/2010 4 Bipolar affective 04/27/2010 05/21/2018 Overview: Continue Diazepam 10mg BID CRI (chronic renal insufficiency) 09/30/2009 12/01/2013 ANEMIA BLOOD LOSS CHRONIC 12/23/20072013 documented as of this encounter (statuses as of 06/23/2021) [facility] History of Past illness Narrative* Problem Noted Date Resolved Date Chronic obstructive pulmonary disease 12/26/2015 03/15/2016 Coronary artery disease invo lving [place] coronary artery of [place] heart with angina pectoris 12/26/2015 06/07/2017 Atypical chest pain 12/26/2015 06/07/2017 Chronic right shoulder pain 07/14/2015 09/0 07/2016 SUMMARY 03/27/2015 10/25/2017 Overview: Leyda Lopez is a 54 year old female with COPD, asthma, sleep apnea, HTN, but no other previously known cardiac disease (echo 08/2014 showed normal LV function only mild MR and trivial TR with normal nuclear stress test) Now a transfer from OSH for due to Echo findings of severe MR and LHC with lesion of the ramus intermediate. She has been transferred to [facility] due to moderate disease in the ramus intermedius. NSTEMI (non-ST elevated myocardial infarction) 0 03/25/2015 05/21/2018 Overview: ASA 81 Atorvastatin 40 Lisinopril 40 Last Assessment & Plan: She takes the lisinopril the statin and the ASA. Neck pain, chronic 02/22/2015 11/06/2016 Non-ST elevation myocardial infarction (NSTEMI), initial episode of care 08/04/2014 05/21/2018 Overview: -Pt transferred to [facility] for NSTEMI? In setting of EKG abnormality and elevated troponin I, thought to be primary ACS vs 2/2 to increase in cardiac demand in setting of sepsis -PT never had CP OSH w/u -EKG --T wave changes in lateral leads -Elevated troponin I, Ck MB WNL -ECHO/Doppler --> Segmental wall motion abnormalities, EF 50%, +2 MR & TR, RVSP 38, no shunt -CTA 07/26/2014 --> No PE, no aortic dissection, Diffuse pulmonary infiltrates, cardiomegaly with evidence of RSHF -Started on Heparin gtt RF: HTN, ex smoker, FH of CAD (father <60 years), Off statins for long time, till restarted in the OSH, denies DM Plan -Trend CE x3 -High intensity statins, Lipitor 80mg QD -Tight BP control -Will hold off heparin, given that the pt is CP free -ECHO -Depending on ECHO results will proceed with either NM stress test or LHC Last Assessment & Plan: PMR (polymyalgia rheumatica) 07/20/2013 Polymyositis 09/29/2011 05/21/2018 Elevated blood pressure 09/09/2011 12/02/19 14 Chronic pain 04/18/2011 11/06/2016 Last Assessment & Plan: Takes ultram for chronic pains, myalgias and joint pains. Takes 2 tabs qid. States this does help with her pains. Dysphagia 10/25/2010 12/01/2013 Hypokalemia 10/04/2010 12/01/2013 Left Plantar fasciitis 10/04/2010 4 Bipolar affective 04/27/2010 05/21/2018 Overview: Continue Diazepam 10mg BID CRI (chronic renal insufficiency) 09/30/2009 12/01/2013 ANEMIA BLOOD LOSS CHRONIC 12/23/20072013 documented as of this encounter (statuses as of 06/26/2021) [facility] History of Past illness Narrative* Problem Noted Date Resolved Date Chronic obstructive pulmonary disease 12/26/2015 03/15/2016 Coronary artery disease invo lving [place] coronary artery of [place] heart with angina pectoris 12/26/2015 06/07/2017 Atypical chest pain 12/26/2015 06/07/2017 Chronic right shoulder pain 07/14/2015/07/2016 SUMMARY 03/27/2015 10/25/2017 Overview: Leyda Lopez is a 54 year old female with COPD, asthma, sleep apnea, HTN, but no other previously known cardiac disease (echo 08/2014 showed normal LV function only mild MR and trivial TR with normal nuclear stress test) Now a transfer from OSH for due to Echo findings of severe MR and LHC with lesion of the ramus intermediate. She has been transferred to [facility] due to moderate disease in the ramus intermedius. NSTEMI (non-ST elevated myocardial infarction) 0 03/25/2015 05/21/2018 Overview: ASA 81 Atorvastatin 40 Lisinopril 40 Last Assessment & Plan: She takes the lisinopril the statin and the ASA. Neck pain, chronic 02/22/2015 11/06/2016 Non-ST elevation myocardial infarction (NSTEMI), initial episode of care 08/04/2014 05/21/2018 Overview: -Pt transferred to [facility] for NSTEMI? In setting of EKG abnormality and elevated troponin I, thought to be primary ACS vs 2/2 to increase in cardiac demand in setting of sepsis -PT never had CP OSH w/u -EKG --T wave changes in lateral leads -Elevated troponin I, Ck MB WNL -ECHO/Doppler --> Segmental wall motion abnormalities, EF 50%, +2 MR & TR, RVSP 38, no shunt -CTA 07/26/2014 --> No PE, no aortic dissection, Diffuse pulmonary infiltrates, cardiomegaly with evidence of RSHF -Started on Heparin gtt RF: HTN, ex smoker, FH of CAD (father <60 years), Off statins for long time, till restarted in the OSH, denies DM Plan -Trend CE x3 -High intensity statins, Lipitor 80mg QD -Tight BP control -Will hold off heparin, given that the pt is CP free -ECHO -Depending on ECHO results will proceed with either NM stress test or LHC Last Assessment & Plan: PMR (polymyalgia rheumatica) 07/20/2013 Polymyositis 09/29/2011 05/21/2018 Elevated blood pressure 09/09/2011 12/02/19 14 Chronic pain 04/18/2011 11/06/2016 Last Assessment & Plan: Takes ultram for chronic pains, myalgias and joint pains. Takes 2 tabs qid. States this does help with her pains. Dysphagia 10/25/2010 12/01/2013 Hypokalemia 10/04/2010 12/01/2013 Left Plantar fasciitis 10/04/2010 4 Bipolar affective 04/27/2010 05/21/2018 Overview: Continue Diazepam 10mg BID CRI (chronic renal insufficiency) 09/30/2009 12/01/2013 ANEMIA BLOOD LOSS CHRONIC 12/23/20072013 documented as of this encounter (statuses as of 07/04/2021) [facility] History of Past illness Narrative* Problem Noted Date Resolved Date Chronic obstructive pulmonary disease 12/26/2015 03/15/2016 Coronary artery disease invo lving [place] coronary artery of [place] heart with angina pectoris 12/26/2015 06/07/2017 Atypical chest pain 12/26/2015 06/07/2017 Chronic right shoulder pain 07/14/2015 09/0 07/2016 SUMMARY 03/27/2015 10/25/2017 Overview: Leyda Lopez is a 54 year old female with COPD, asthma, sleep apnea, HTN, but no other previously known cardiac disease (echo 08/2014 showed normal LV function only mild MR and trivial TR with normal nuclear stress test) Now a transfer from OSH for due to Echo findings of severe MR and LHC with lesion of the ramus intermediate. She has been transferred to [facility] due to moderate disease in the ramus intermedius. NSTEMI (non-ST elevated myocardial infarction) 0 03/25/2015 05/21/2018 Overview: ASA 81 Atorvastatin 40 Lisinopril 40 Last Assessment & Plan: She takes the lisinopril the statin and the ASA. Neck pain, chronic 02/22/2015 11/06/2016 Non-ST elevation myocardial infarction (NSTEMI), initial episode of care 08/04/2014 05/21/2018 Overview: -Pt transferred to [facility] for NSTEMI? In setting of EKG abnormality and elevated troponin I, thought to be primary ACS vs 2/2 to increase in cardiac demand in setting of sepsis -PT never had CP OSH w/u -EKG --T wave changes in lateral leads -Elevated troponin I, Ck MB WNL -ECHO/Doppler --> Segmental wall motion abnormalities, EF 50%, +2 MR & TR, RVSP 38, no shunt -CTA 07/26/2014 --> No PE, no aortic dissection, Diffuse pulmonary infiltrates, cardiomegaly with evidence of RSHF -Started on Heparin gtt RF: HTN, ex smoker, FH of CAD (father <60 years), Off statins for long time, till restarted in the OSH, denies DM Plan -Trend CE x3 -High intensity statins, Lipitor 80mg QD -Tight BP control -Will hold off heparin, given that the pt is CP free -ECHO -Depending on ECHO results will proceed with either NM stress test or LHC Last Assessment & Plan: PMR (polymyalgia rheumatica) 07/20/2013 Polymyositis 09/29/2011 05/21/2018 Elevated blood pressure 09/09/2011 12/02/19 14 Chronic pain 04/18/2011 11/06/2016 Last Assessment & Plan: Takes ultram for chronic pains, myalgias and joint pains. Takes 2 tabs qid. States this does help with her pains. Dysphagia 10/25/2010 12/01/2013 Hypokalemia 10/04/2010 12/01/2013 Left Plantar fasciitis 10/04/2010 4 Bipolar affective 04/27/2010 05/21/2018 Overview: Continue Diazepam 10mg BID CRI (chronic renal insufficiency) 09/30/2009 12/01/2013 ANEMIA BLOOD LOSS CHRONIC 12/23/20072013 documented as of this encounter (statuses as of 07/06/2021) [facility] History of Past illness Narrative* Problem Noted Date Resolved Date Chronic obstructive pulmonary disease 12/26/2015 03/15/2016 Coronary artery disease invo lving [place] coronary artery of [place] heart with angina pectoris 12/26/2015 06/07/2017 Atypical chest pain 12/26/2015 06/07/2017 Chronic right shoulder pain 07/14/201507/2016 SUMMARY 03/27/2015 10/25/2017 Overview: Leyda Lopez is a 54 year old female with COPD, asthma, sleep apnea, HTN, but no other previously known cardiac disease (echo 08/2014 showed normal LV function only mild MR and trivial TR with normal nuclear stress test) Now a transfer from OSH for due to Echo findings of severe MR and LHC with lesion of the ramus intermediate. She has been transferred to [facility] due to moderate disease in the ramus intermedius. NSTEMI (non-ST elevated myocardial infarction) 0 03/25/2015 05/21/2018 Overview: ASA 81 Atorvastatin 40 Lisinopril 40 Last Assessment & Plan: She takes the lisinopril the statin and the ASA. Neck pain, chronic 02/22/2015 11/06/2016 Non-ST elevation myocardial infarction (NSTEMI), initial episode of care 08/04/2014 05/21/2018 Overview: -Pt transferred to [facility] for NSTEMI? In setting of EKG abnormality and elevated troponin I, thought to be primary ACS vs 2/2 to increase in cardiac demand in setting of sepsis -PT never had CP OSH w/u -EKG --T wave changes in lateral leads -Elevated troponin I, Ck MB WNL -ECHO/Doppler --> Segmental wall motion abnormalities, EF 50%, +2 MR & TR, RVSP 38, no shunt -CTA 07/26/2014 --> No PE, no aortic dissection, Diffuse pulmonary infiltrates, cardiomegaly with evidence of RSHF -Started on Heparin gtt RF: HTN, ex smoker, FH of CAD (father <60 years), Off statins for long time, till restarted in the OSH, denies DM Plan -Trend CE x3 -High intensity statins, Lipitor 80mg QD -Tight BP control -Will hold off heparin, given that the pt is CP free -ECHO -Depending on ECHO results will proceed with either NM stress test or LHC Last Assessment & Plan: PMR (polymyalgia rheumatica) 07/20/2013 Polymyositis 09/29/2011 05/21/2018 Elevated blood pressure 09/09/2011 12/02/19 14 Chronic pain 04/18/2011 11/06/2016 Last Assessment & Plan: Takes ultram for chronic pains, myalgias and joint pains. Takes 2 tabs qid. States this does help with her pains. Dysphagia 10/25/2010 12/01/2013 Hypokalemia 10/04/2010 12/01/2013 Left Plantar fasciitis 10/04/2010 4 Bipolar affective 04/27/2010 05/21/2018 Overview: Continue Diazepam 10mg BID CRI (chronic renal insufficiency) 09/30/2009 12/01/2013 ANEMIA BLOOD LOSS CHRONIC 12/23/20072013 documented as of this encounter (statuses as of 07/07/2021) [facility] History of Past illness Narrative* Problem Noted Date Resolved Date Chronic obstructive pulmonary disease 12/26/2015 03/15/2016 Coronary artery disease invo lving [place] coronary artery of [place] heart with angina pectoris 12/26/2015 06/07/2017 Atypical chest pain 12/26/2015 06/07/2017 Chronic right shoulder pain 07/14/2015 09/0 07/2016 SUMMARY 03/27/2015 10/25/2017 Overview: Leyda Lopez is a 54 year old female with COPD, asthma, sleep apnea, HTN, but no other previously known cardiac disease (echo 08/2014 showed normal LV function only mild MR and trivial TR with normal nuclear stress test) Now a transfer from OSH for due to Echo findings of severe MR and LHC with lesion of the ramus intermediate. She has been transferred to [facility] due to moderate disease in the ramus intermedius. NSTEMI (non-ST elevated myocardial infarction) 0 03/25/2015 05/21/2018 Overview: ASA 81 Atorvastatin 40 Lisinopril 40 Last Assessment & Plan: She takes the lisinopril the statin and the ASA. Neck pain, chronic 02/22/2015 11/06/2016 Non-ST elevation myocardial infarction (NSTEMI), initial episode of care 08/04/2014 05/21/2018 Overview: -Pt transferred to [facility] for NSTEMI? In setting of EKG abnormality and elevated troponin I, thought to be primary ACS vs 2/2 to increase in cardiac demand in setting of sepsis -PT never had CP OSH w/u -EKG --T wave changes in lateral leads -Elevated troponin I, Ck MB WNL -ECHO/Doppler --> Segmental wall motion abnormalities, EF 50%, +2 MR & TR, RVSP 38, no shunt -CTA 07/26/2014 --> No PE, no aortic dissection, Diffuse pulmonary infiltrates, cardiomegaly with evidence of RSHF -Started on Heparin gtt RF: HTN, ex smoker, FH of CAD (father <60 years), Off statins for long time, till restarted in the OSH, denies DM Plan -Trend CE x3 -High intensity statins, Lipitor 80mg QD -Tight BP control -Will hold off heparin, given that the pt is CP free -ECHO -Depending on ECHO results will proceed with either NM stress test or LHC Last Assessment & Plan: PMR (polymyalgia rheumatica) 07/20/2013 Polymyositis 09/29/2011 05/21/2018 Elevated blood pressure 09/09/2011 12/02/19 14 Chronic pain 04/18/2011 11/06/2016 Last Assessment & Plan: Takes ultram for chronic pains, myalgias and joint pains. Takes 2 tabs qid. States this does help with her pains. Dysphagia 10/25/2010 12/01/2013 Hypokalemia 10/04/2010 12/01/2013 Left Plantar fasciitis 10/04/2010 4 Bipolar affective 04/27/2010 05/21/2018 Overview: Continue Diazepam 10mg BID CRI (chronic renal insufficiency) 09/30/2009 12/01/2013 ANEMIA BLOOD LOSS CHRONIC 12/23/20072013 documented as of this encounter (statuses as of 07/10/2021) [facility] History of Past illness Narrative* Problem Noted Date Resolved Date Chronic obstructive pulmonary disease 12/26/2015 03/15/2016 Coronary artery disease invo lving [place] coronary artery of [place] heart with angina pectoris 12/26/2015 06/07/2017 Atypical chest pain 12/26/2015 06/07/2017 Chronic right shoulder pain 07/14/2015 09/0 07/2016 SUMMARY 03/27/2015 10/25/2017 Overview: Leyda Lopez is a 54 year old female with COPD, asthma, sleep apnea, HTN, but no other previously known cardiac disease (echo 08/2014 showed normal LV function only mild MR and trivial TR with normal nuclear stress test) Now a transfer from OSH for due to Echo findings of severe MR and LHC with lesion of the ramus intermediate. She has been transferred to [facility] due to moderate disease in the ramus intermedius. NSTEMI (non-ST elevated myocardial infarction) 0 03/25/2015 05/21/2018 Overview: ASA 81 Atorvastatin 40 Lisinopril 40 Last Assessment & Plan: She takes the lisinopril the statin and the ASA. Neck pain, chronic 02/22/2015 11/06/2016 Non-ST elevation myocardial infarction (NSTEMI), initial episode of care 08/04/2014 05/21/2018 Overview: -Pt transferred to [facility] for NSTEMI? In setting of EKG abnormality and elevated troponin I, thought to be primary ACS vs 2/2 to increase in cardiac demand in setting of sepsis -PT never had CP OSH w/u -EKG --T wave changes in lateral leads -Elevated troponin I, Ck MB WNL -ECHO/Doppler --> Segmental wall motion abnormalities, EF 50%, +2 MR & TR, RVSP 38, no shunt -CTA 07/26/2014 --> No PE, no aortic dissection, Diffuse pulmonary infiltrates, cardiomegaly with evidence of RSHF -Started on Heparin gtt RF: HTN, ex smoker, FH of CAD (father <60 years), Off statins for long time, till restarted in the OSH, denies DM Plan -Trend CE x3 -High intensity statins, Lipitor 80mg QD -Tight BP control -Will hold off heparin, given that the pt is CP free -ECHO -Depending on ECHO results will proceed with either NM stress test or LHC Last Assessment & Plan: PMR (polymyalgia rheumatica) 07/20/2013 Polymyositis 09/29/2011 05/21/2018 Elevated blood pressure 09/09/2011 12/02/19 14 Chronic pain 04/18/2011 11/06/2016 Last Assessment & Plan: Takes ultram for chronic pains, myalgias and joint pains. Takes 2 tabs qid. States this does help with her pains. Dysphagia 10/25/2010 12/01/2013 Hypokalemia 10/04/2010 12/01/2013 Left Plantar fasciitis 10/04/2010 4 Bipolar affective 04/27/2010 05/21/2018 Overview: Continue Diazepam 10mg BID CRI (chronic renal insufficiency) 09/30/2009 12/01/2013 ANEMIA BLOOD LOSS CHRONIC 12/23/20072013 documented as of this encounter (statuses as of 07/10/2021) [facility]2016 History of Past illness Narrative* Problem Noted Date Resolved Date Chronic obstructive pulmonary disease 12/26/2015 03/15/2016 Coronary artery disease invo lving [place] coronary artery of [place] heart with angina pectoris 12/26/2015 06/07/2017 Atypical chest pain 12/26/2015 06/07/2017 Chronic right shoulder pain 07/14/201507/2016 SUMMARY 03/27/2015 10/25/2017 Overview: Leyda Lopez is a 54 year old female with COPD, asthma, sleep apnea, HTN, but no other previously known cardiac disease (echo 08/2014 showed normal LV function only mild MR and trivial TR with normal nuclear stress test) Now a transfer from OSH for due to Echo findings of severe MR and LHC with lesion of the ramus intermediate. She has been transferred to [facility] due to moderate disease in the ramus intermedius. NSTEMI (non-ST elevated myocardial infarction) 0 03/25/2015 05/21/2018 Overview: ASA 81 Atorvastatin 40 Lisinopril 40 Last Assessment & Plan: She takes the lisinopril the statin and the ASA. Neck pain, chronic 02/22/2015 11/06/2016 Non-ST elevation myocardial infarction (NSTEMI), initial episode of care 08/04/2014 05/21/2018 Overview: -Pt transferred to [facility] for NSTEMI? In setting of EKG abnormality and elevated troponin I, thought to be primary ACS vs 2/2 to increase in cardiac demand in setting of sepsis -PT never had CP OSH w/u -EKG --T wave changes in lateral leads -Elevated troponin I, Ck MB WNL -ECHO/Doppler --> Segmental wall motion abnormalities, EF 50%, +2 MR & TR, RVSP 38, no shunt -CTA 07/26/2014 --> No PE, no aortic dissection, Diffuse pulmonary infiltrates, cardiomegaly with evidence of RSHF -Started on Heparin gtt RF: HTN, ex smoker, FH of CAD (father <60 years), Off statins for long time, till restarted in the OSH, denies DM Plan -Trend CE x3 -High intensity statins, Lipitor 80mg QD -Tight BP control -Will hold off heparin, given that the pt is CP free -ECHO -Depending on ECHO results will proceed with either NM stress test or LHC Last Assessment & Plan: PMR (polymyalgia rheumatica) 07/20/2013 Polymyositis 09/29/2011 05/21/2018 Elevated blood pressure 09/09/2011 12/02/19 14 Chronic pain 04/18/2011 11/06/2016 Last Assessment & Plan: Takes ultram for chronic pains, myalgias and joint pains. Takes 2 tabs qid. States this does help with her pains. Dysphagia 10/25/2010 12/01/2013 Hypokalemia 10/04/2010 12/01/2013 Left Plantar fasciitis 10/04/2010 4 Bipolar affective 04/27/2010 05/21/2018 Overview: Continue Diazepam 10mg BID CRI (chronic renal insufficiency) 09/30/2009 12/01/2013 ANEMIA BLOOD LOSS CHRONIC 12/23/20072013 documented as of this encounter (statuses as of 07/14/2021) [facility] History of Past illness Narrative* Problem Noted Date Resolved Date Chronic obstructive pulmonary disease 12/26/2015 03/15/2016 Coronary artery disease invo lving [place] coronary artery of [place] heart with angina pectoris 12/26/2015 06/07/2017 Atypical chest pain 12/26/2015 06/07/2017 Chronic right shoulder pain 07/14/2015 09/0 07/2016 SUMMARY 03/27/2015 10/25/2017 Overview: Leyda L John is a 54 year old female with COPD, asthma, sleep apnea, HTN, but no other previously known cardiac disease (echo 08/2014 showed normal LV function only mild MR and trivial TR with normal nuclear stress test) Now a transfer from OSH for due to Echo findings of severe MR and LHC with lesion of the ramus intermediate. She has been transferred to [facility] due to moderate disease in the ramus intermedius. NSTEMI (non-ST elevated myocardial infarction) 0 03/25/2015 05/21/2018 Overview: ASA 81 Atorvastatin 40 Lisinopril 40 Last Assessment & Plan: She takes the lisinopril the statin and the ASA. Neck pain, chronic 02/22/2015 11/06/2016 Non-ST elevation myocardial infarction (NSTEMI), initial episode of care 08/04/2014 05/21/2018 Overview: -Pt transferred to [facility] for NSTEMI? In setting of EKG abnormality and elevated troponin I, thought to be primary ACS vs 2/2 to increase in cardiac demand in setting of sepsis -PT never had CP OSH w/u -EKG --T wave changes in lateral leads -Elevated troponin I, Ck MB WNL -ECHO/Doppler --> Segmental wall motion abnormalities, EF 50%, +2 MR & TR, RVSP 38, no shunt -CTA 07/26/2014 --> No PE, no aortic dissection, Diffuse pulmonary infiltrates, cardiomegaly with evidence of RSHF -Started on Heparin gtt RF: HTN, ex smoker, FH of CAD (father <60 years), Off statins for long time, till restarted in the OSH, denies DM Plan -Trend CE x3 -High intensity statins, Lipitor 80mg QD -Tight BP control -Will hold off heparin, given that the pt is CP free -ECHO -Depending on ECHO results will proceed with either NM stress test or LHC Last Assessment & Plan: PMR (polymyalgia rheumatica) 07/20/2013 Polymyositis 09/29/2011 05/21/2018 Elevated blood pressure 09/09/2011 12/02/19 14 Chronic pain 04/18/2011 11/06/2016 Last Assessment & Plan: Takes ultram for chronic pains, myalgias and joint pains. Takes 2 tabs qid. States this does help with her pains. Dysphagia 10/25/2010 12/01/2013 Hypokalemia 10/04/2010 12/01/2013 Left Plantar fasciitis 10/04/2010 4 Bipolar affective 04/27/2010 05/21/2018 Overview: Continue Diazepam 10mg BID CRI (chronic renal insufficiency) 09/30/2009 12/01/2013 ANEMIA BLOOD LOSS CHRONIC 12/23/20072013 documented as of this encounter (statuses as of 07/26/2021) [facility] History of Past illness Narrative* Problem Noted Date Resolved Date Chronic obstructive pulmonary disease 12/26/2015 03/15/2016 Coronary artery disease invo lving [place] coronary artery of [place] heart with angina pectoris 12/26/2015 06/07/2017 Atypical chest pain 12/26/2015 06/07/2017 Chronic right shoulder pain 07/14/2015 09/0 07/2016 SUMMARY 03/27/2015 10/25/2017 Overview: Leyda Lopez is a 54 year old female with COPD, asthma, sleep apnea, HTN, but no other previously known cardiac disease (echo 08/2014 showed normal LV function only mild MR and trivial TR with normal nuclear stress test) Now a transfer from OSH for due to Echo findings of severe MR and LHC with lesion of the ramus intermediate. She has been transferred to [facility] due to moderate disease in the ramus intermedius. NSTEMI (non-ST elevated myocardial infarction) 0 03/25/2015 05/21/2018 Overview: ASA 81 Atorvastatin 40 Lisinopril 40 Last Assessment & Plan: She takes the lisinopril the statin and the ASA. Neck pain, chronic 02/22/2015 11/06/2016 Non-ST elevation myocardial infarction (NSTEMI), initial episode of care 08/04/2014 05/21/2018 Overview: -Pt transferred to [facility] for NSTEMI? In setting of EKG abnormality and elevated troponin I, thought to be primary ACS vs 2/2 to increase in cardiac demand in setting of sepsis -PT never had CP OSH w/u -EKG --T wave changes in lateral leads -Elevated troponin I, Ck MB WNL -ECHO/Doppler --> Segmental wall motion abnormalities, EF 50%, +2 MR & TR, RVSP 38, no shunt -CTA 07/26/2014 --> No PE, no aortic dissection, Diffuse pulmonary infiltrates, cardiomegaly with evidence of RSHF -Started on Heparin gtt RF: HTN, ex smoker, FH of CAD (father <60 years), Off statins for long time, till restarted in the OSH, denies DM Plan -Trend CE x3 -High intensity statins, Lipitor 80mg QD -Tight BP control -Will hold off heparin, given that the pt is CP free -ECHO -Depending on ECHO results will proceed with either NM stress test or LHC Last Assessment & Plan: PMR (polymyalgia rheumatica) 07/20/2013 Polymyositis 09/29/2011 05/21/2018 Elevated blood pressure 09/09/2011 12/02/19 14 Chronic pain 04/18/2011 11/06/2016 Last Assessment & Plan: Takes ultram for chronic pains, myalgias and joint pains. Takes 2 tabs qid. States this does help with her pains. Dysphagia 10/25/2010 12/01/2013 Hypokalemia 10/04/2010 12/01/2013 Left Plantar fasciitis 10/04/2010 4 Bipolar affective 04/27/2010 05/21/2018 Overview: Continue Diazepam 10mg BID CRI (chronic renal insufficiency) 09/30/2009 12/01/2013 ANEMIA BLOOD LOSS CHRONIC 12/23/20072013 documented as of this encounter (statuses as of 07/26/2021) [facility] History of Past illness Narrative* Problem Noted Date Resolved Date Chronic obstructive pulmonary disease 12/26/2015 03/15/2016 Coronary artery disease invo lving [place] coronary artery of [place] heart with angina pectoris 12/26/2015 06/07/2017 Atypical chest pain 12/26/2015 06/07/2017 Chronic right shoulder pain 07/14/2015 09/0 07/2016 SUMMARY 03/27/2015 10/25/2017 Overview: Leyda Lopez is a 54 year old female with COPD, asthma, sleep apnea, HTN, but no other previously known cardiac disease (echo 08/2014 showed normal LV function only mild MR and trivial TR with normal nuclear stress test) Now a transfer from OSH for due to Echo findings of severe MR and LHC with lesion of the ramus intermediate. She has been transferred to [facility] due to moderate disease in the ramus intermedius. NSTEMI (non-ST elevated myocardial infarction) 0 03/25/2015 05/21/2018 Overview: ASA 81 Atorvastatin 40 Lisinopril 40 Last Assessment & Plan: She takes the lisinopril the statin and the ASA. Neck pain, chronic 02/22/2015 11/06/2016 Non-ST elevation myocardial infarction (NSTEMI), initial episode of care 08/04/2014 05/21/2018 Overview: -Pt transferred to [facility] for NSTEMI? In setting of EKG abnormality and elevated troponin I, thought to be primary ACS vs 2/2 to increase in cardiac demand in setting of sepsis -PT never had CP OSH w/u -EKG --T wave changes in lateral leads -Elevated troponin I, Ck MB WNL -ECHO/Doppler --> Segmental wall motion abnormalities, EF 50%, +2 MR & TR, RVSP 38, no shunt -CTA 07/26/2014 --> No PE, no aortic dissection, Diffuse pulmonary infiltrates, cardiomegaly with evidence of RSHF -Started on Heparin gtt RF: HTN, ex smoker, FH of CAD (father <60 years), Off statins for long time, till restarted in the OSH, denies DM Plan -Trend CE x3 -High intensity statins, Lipitor 80mg QD -Tight BP control -Will hold off heparin, given that the pt is CP free -ECHO -Depending on ECHO results will proceed with either NM stress test or LHC Last Assessment & Plan: PMR (polymyalgia rheumatica) 07/20/2013 Polymyositis 09/29/2011 05/21/2018 Elevated blood pressure 09/09/2011 12/02/19 14 Chronic pain 04/18/2011 11/06/2016 Last Assessment & Plan: Takes ultram for chronic pains, myalgias and joint pains. Takes 2 tabs qid. States this does help with her pains. Dysphagia 10/25/2010 12/01/2013 Hypokalemia 10/04/2010 12/01/2013 Left Plantar fasciitis 10/04/2010 4 Bipolar affective 04/27/2010 05/21/2018 Overview: Continue Diazepam 10mg BID CRI (chronic renal insufficiency) 09/30/2009 12/01/2013 ANEMIA BLOOD LOSS CHRONIC 12/23/20072013 documented as of this encounter (statuses as of 07/26/2021) [facility] History of Past illness Narrative* Problem Noted Date Resolved Date Chronic obstructive pulmonary disease 12/26/2015 03/15/2016 Coronary artery disease invo lving [place] coronary artery of [place] heart with angina pectoris 12/26/2015 06/07/2017 Atypical chest pain 12/26/2015 06/07/2017 Chronic right shoulder pain 07/14/2015 09/0 07/2016 SUMMARY 03/27/2015 10/25/2017 Overview: Leyda Lopez is a 54 year old female with COPD, asthma, sleep apnea, HTN, but no other previously known cardiac disease (echo 08/2014 showed normal LV function only mild MR and trivial TR with normal nuclear stress test) Now a transfer from [facility]SH for due to Echo findings of severe MR and LHC with lesion of the ramus intermediate. She has been transferred to [facility] due to moderate disease in the ramus intermedius. NSTEMI (non-ST elevated myocardial infarction) 0 03/25/2015 05/21/2018 Overview: ASA 81 Atorvastatin 40 Lisinopril 40 Last Assessment & Plan: She takes the lisinopril the statin and the ASA. Neck pain, chronic 02/22/2015 11/06/2016 Non-ST elevation myocardial infarction (NSTEMI), initial episode of care 08/04/2014 05/21/2018 Overview: -Pt transferred to [facility] for NSTEMI? In setting of EKG abnormality and elevated troponin I, thought to be primary ACS vs 2/2 to increase in cardiac demand in setting of sepsis -PT never had CP OSH w/u -EKG --T wave changes in lateral leads -Elevated troponin I, Ck MB WNL -ECHO/Doppler --> Segmental wall motion abnormalities, EF 50%, +2 MR & TR, RVSP 38, no shunt -CTA 07/26/2014 --> No PE, no aortic dissection, Diffuse pulmonary infiltrates, cardiomegaly with evidence of RSHF -Started on Heparin gtt RF: HTN, ex smoker, FH of CAD (father <60 years), Off statins for long time, till restarted in the OSH, denies DM Plan -Trend CE x3 -High intensity statins, Lipitor 80mg QD -Tight BP control -Will hold off heparin, given that the pt is CP free -ECHO -Depending on ECHO results will proceed with either NM stress test or LHC Last Assessment & Plan: PMR (polymyalgia rheumatica) 07/20/2013 Polymyositis 09/29/2011 05/21/2018 Elevated blood pressure 09/09/2011 12/02/19 14 Chronic pain 04/18/2011 11/06/2016 Last Assessment & Plan: Takes ultram for chronic pains, myalgias and joint pains. Takes 2 tabs qid. States this does help with her pains. Dysphagia 10/25/2010 12/01/2013 Hypokalemia 10/04/2010 12/01/2013 Left Plantar fasciitis 10/04/2010 4 Bipolar affective 04/27/2010 05/21/2018 Overview: Continue Diazepam 10mg BID CRI (chronic renal insufficiency) 09/30/2009 12/01/2013 ANEMIA BLOOD LOSS CHRONIC 12/23/20072013 documented as of this encounter (statuses as of 08/02/2021) [facility] History of Past illness Narrative* Problem Noted Date Resolved Date Chronic obstructive pulmonary disease 12/26/2015 03/15/2016 Coronary artery disease invo lving [place] coronary artery of [place] heart with angina pectoris 12/26/2015 06/07/2017 Atypical chest pain 12/26/2015 06/07/2017 Chronic right shoulder pain 07/14/201507/2016 SUMMARY 03/27/2015 10/25/2017 Overview: Leyda Lopez is a 54 year old female with COPD, asthma, sleep apnea, HTN, but no other previously known cardiac disease (echo 08/2014 showed normal LV function only mild MR and trivial TR with normal nuclear stress test) Now a transfer from OSH for due to Echo findings of severe MR and LHC with lesion of the ramus intermediate. She has been transferred to [facility] due to moderate disease in the ramus intermedius. NSTEMI (non-ST elevated myocardial infarction) 0 03/25/2015 05/21/2018 Overview: ASA 81 Atorvastatin 40 Lisinopril 40 Last Assessment & Plan: She takes the lisinopril the statin and the ASA. Neck pain, chronic 02/22/2015 11/06/2016 Non-ST elevation myocardial infarction (NSTEMI), initial episode of care 08/04/2014 05/21/2018 Overview: -Pt transferred to [facility] for NSTEMI? In setting of EKG abnormality and elevated troponin I, thought to be primary ACS vs 2/2 to increase in cardiac demand in setting of sepsis -PT never had CP OSH w/u -EKG --T wave changes in lateral leads -Elevated troponin I, Ck MB WNL -ECHO/Doppler --> Segmental wall motion abnormalities, EF 50%, +2 MR & TR, RVSP 38, no shunt -CTA 07/26/2014 --> No PE, no aortic dissection, Diffuse pulmonary infiltrates, cardiomegaly with evidence of RSHF -Started on Heparin gtt RF: HTN, ex smoker, FH of CAD (father <60 years), Off statins for long time, till restarted in the OSH, denies DM Plan -Trend CE x3 -High intensity statins, Lipitor 80mg QD -Tight BP control -Will hold off heparin, given that the pt is CP free -ECHO -Depending on ECHO results will proceed with either NM stress test or LHC Last Assessment & Plan: PMR (polymyalgia rheumatica) 07/20/2013 Polymyositis 09/29/2011 05/21/2018 Elevated blood pressure 09/09/2011 12/02/19 14 Chronic pain 04/18/2011 11/06/2016 Last Assessment & Plan: Takes ultram for chronic pains, myalgias and joint pains. Takes 2 tabs qid. States this does help with her pains. Dysphagia 10/25/2010 12/01/2013 Hypokalemia 10/04/2010 12/01/2013 Left Plantar fasciitis 10/04/2010 4 Bipolar affective 04/27/2010 05/21/2018 Overview: Continue Diazepam 10mg BID CRI (chronic renal insufficiency) 09/30/2009 12/01/2013 ANEMIA BLOOD LOSS CHRONIC 12/23/20072013 documented as of this encounter (statuses as of 08/08/2021) [facility] History of Past illness Narrative* Problem Noted Date Resolved Date Chronic obstructive pulmonary disease 12/26/2015 03/15/2016 Coronary artery disease invo lving [place] coronary artery of [place] heart with angina pectoris 12/26/2015 06/07/2017 Atypical chest pain 12/26/2015 06/07/2017 Chronic right shoulder pain 07/14/2015 09/0 07/2016 SUMMARY 03/27/2015 10/25/2017 Overview: Leyda David John is a 54 year old female with COPD, asthma, sleep apnea, HTN, but no other previously known cardiac disease (echo 08/2014 showed normal LV function only mild MR and trivial TR with normal nuclear stress test) Now a transfer from [facility] for due to Echo findings of severe MR and LHC with lesion of the ramus intermediate. She has been transferred to [facility] due to moderate disease in the ramus intermedius. NSTEMI (non-ST elevated myocardial infarction) 0 03/25/2015 05/21/2018 Overview: ASA 81 Atorvastatin 40 Lisinopril 40 Last Assessment & Plan: She takes the lisinopril the statin and the ASA. Neck pain, chronic 02/22/2015 11/06/2016 Non-ST elevation myocardial infarction (NSTEMI), initial episode of care 08/04/2014 05/21/2018 Overview: -Pt transferred to [facility] for NSTEMI? In setting of EKG abnormality and elevated troponin I, thought to be primary ACS vs 2/2 to increase in cardiac demand in setting of sepsis -PT never had CP OSH w/u -EKG --T wave changes in lateral leads -Elevated troponin I, Ck MB WNL -ECHO/Doppler --> Segmental wall motion abnormalities, EF 50%, +2 MR & TR, RVSP 38, no shunt -CTA 07/26/2014 --> No PE, no aortic dissection, Diffuse pulmonary infiltrates, cardiomegaly with evidence of RSHF -Started on Heparin gtt RF: HTN, ex smoker, FH of CAD (father <60 years), Off statins for long time, till restarted in the OSH, denies DM Plan -Trend CE x3 -High intensity statins, Lipitor 80mg QD -Tight BP control -Will hold off heparin, given that the pt is CP free -ECHO -Depending on ECHO results will proceed with either NM stress test or LHC Last Assessment & Plan: PMR (polymyalgia rheumatica) 07/20/2013 Polymyositis 09/29/2011 05/21/2018 Elevated blood pressure 09/09/2011 12/02/19 14 Chronic pain 04/18/2011 11/06/2016 Last Assessment & Plan: Takes ultram for chronic pains, myalgias and joint pains. Takes 2 tabs qid. States this does help with her pains. Dysphagia 10/25/2010 12/01/2013 Hypokalemia 10/04/2010 12/01/2013 Left Plantar fasciitis 10/04/2010 4 Bipolar affective 04/27/2010 05/21/2018 Overview: Continue Diazepam 10mg BID CRI (chronic renal insufficiency) 09/30/2009 12/01/2013 ANEMIA BLOOD LOSS CHRONIC 12/23/20072013 documented as of this encounter (statuses as of 08/11/2021) [facility] History of Past illness Narrative* Problem Noted Date Resolved Date Chronic obstructive pulmonary disease 12/26/2015 03/15/2016 Coronary artery disease invo lving [place] coronary artery of [place] heart with angina pectoris 12/26/2015 06/07/2017 Atypical chest pain 12/26/2015 06/07/2017 Chronic right shoulder pain 07/14/2015 09/0 07/2016 SUMMARY 03/27/2015 10/25/2017 Overview: Leyda Lopez is a 54 year old female with COPD, asthma, sleep apnea, HTN, but no other previously known cardiac disease (echo 08/2014 showed normal LV function only mild MR and trivial TR with normal nuclear stress test) Now a transfer from [facility] for due to Echo findings of severe MR and LHC with lesion of the ramus intermediate. She has been transferred to [facility] due to moderate disease in the ramus intermedius. NSTEMI (non-ST elevated myocardial infarction) 0 03/25/2015 05/21/2018 Overview: ASA 81 Atorvastatin 40 Lisinopril 40 Last Assessment & Plan: She takes the lisinopril the statin and the ASA. Neck pain, chronic 02/22/2015 11/06/2016 Non-ST elevation myocardial infarction (NSTEMI), initial episode of care 08/04/2014 05/21/2018 Overview: -Pt transferred to [facility] for NSTEMI? In setting of EKG abnormality and elevated troponin I, thought to be primary ACS vs 2/2 to increase in cardiac demand in setting of sepsis -PT never had CP OSH w/u -EKG --T wave changes in lateral leads -Elevated troponin I, Ck MB WNL -ECHO/Doppler --> Segmental wall motion abnormalities, EF 50%, +2 MR & TR, RVSP 38, no shunt -CTA 07/26/2014 --> No PE, no aortic dissection, Diffuse pulmonary infiltrates, cardiomegaly with evidence of RSHF -Started on Heparin gtt RF: HTN, ex smoker, FH of CAD (father <60 years), Off statins for long time, till restarted in the OSH, denies DM Plan -Trend CE x3 -High intensity statins, Lipitor 80mg QD -Tight BP control -Will hold off heparin, given that the pt is CP free -ECHO -Depending on ECHO results will proceed with either NM stress test or LHC Last Assessment & Plan: PMR (polymyalgia rheumatica) 07/20/2013 Polymyositis 09/29/2011 05/21/2018 Elevated blood pressure 09/09/2011 12/02/19 14 Chronic pain 04/18/2011 11/06/2016 Last Assessment & Plan: Takes ultram for chronic pains, myalgias and joint pains. Takes 2 tabs qid. States this does help with her pains. Dysphagia 10/25/2010 12/01/2013 Hypokalemia 10/04/2010 12/01/2013 Left Plantar fasciitis 10/04/2010 4 Bipolar affective 04/27/2010 05/21/2018 Overview: Continue Diazepam 10mg BID CRI (chronic renal insufficiency) 09/30/2009 12/01/2013 ANEMIA BLOOD LOSS CHRONIC 12/23/20072013 documented as of this encounter (statuses as of 08/14/2021) [facility] History of Past illness Narrative* Problem Noted Date Resolved Date Chronic obstructive pulmonary disease 12/26/2015 03/15/2016 Coronary artery disease invo lving [place] coronary artery of [place] heart with angina pectoris 12/26/2015 06/07/2017 Atypical chest pain 12/26/2015 06/07/2017 Chronic right shoulder pain 07/14/2015 09/0 07/2016 SUMMARY 03/27/2015 10/25/2017 Overview: Leyda Lopez is a 54 year old female with COPD, asthma, sleep apnea, HTN, but no other previously known cardiac disease (echo 08/2014 showed normal LV function only mild MR and trivial TR with normal nuclear stress test) Now a transfer from [facility] for due to Echo findings of severe MR and LHC with lesion of the ramus intermediate. She has been transferred to [facility] due to moderate disease in the ramus intermedius. NSTEMI (non-ST elevated myocardial infarction) 0 03/25/2015 05/21/2018 Overview: ASA 81 Atorvastatin 40 Lisinopril 40 Last Assessment & Plan: She takes the lisinopril the statin and the ASA. Neck pain, chronic 02/22/2015 11/06/2016 Non-ST elevation myocardial infarction (NSTEMI), initial episode of care 08/04/2014 05/21/2018 Overview: -Pt transferred to [facility] for NSTEMI? In setting of EKG abnormality and elevated troponin I, thought to be primary ACS vs 2/2 to increase in cardiac demand in setting of sepsis -PT never had CP OSH w/u -EKG --T wave changes in lateral leads -Elevated troponin I, Ck MB WNL -ECHO/Doppler --> Segmental wall motion abnormalities, EF 50%, +2 MR & TR, RVSP 38, no shunt -CTA 07/26/2014 --> No PE, no aortic dissection, Diffuse pulmonary infiltrates, cardiomegaly with evidence of RSHF -Started on Heparin gtt RF: HTN, ex smoker, FH of CAD (father <60 years), Off statins for long time, till restarted in the OSH, denies DM Plan -Trend CE x3 -High intensity statins, Lipitor 80mg QD -Tight BP control -Will hold off heparin, given that the pt is CP free -ECHO -Depending on ECHO results will proceed with either NM stress test or LHC Last Assessment & Plan: PMR (polymyalgia rheumatica) 07/20/2013 Polymyositis 09/29/2011 05/21/2018 Elevated blood pressure 09/09/2011 12/02/19 14 Chronic pain 04/18/2011 11/06/2016 Last Assessment & Plan: Takes ultram for chronic pains, myalgias and joint pains. Takes 2 tabs qid. States this does help with her pains. Dysphagia 10/25/2010 12/01/2013 Hypokalemia 10/04/2010 12/01/2013 Left Plantar fasciitis 10/04/2010 4 Bipolar affective 04/27/2010 05/21/2018 Overview: Continue Diazepam 10mg BID CRI (chronic renal insufficiency) 09/30/2009 12/01/2013 ANEMIA BLOOD LOSS CHRONIC 12/23/20072013 documented as of this encounter (statuses as of 08/15/2021) [facility] History of Past illness Narrative* Problem Noted Date Resolved Date Chronic obstructive pulmonary disease 12/26/2015 03/15/2016 Coronary artery disease invo lving [place] coronary artery of [place] heart with angina pectoris 12/26/2015 06/07/2017 Atypical chest pain 12/26/2015 06/07/2017 Chronic right shoulder pain 07/14/2015 09/0 07/2016 SUMMARY 03/27/2015 10/25/2017 Overview: Leyda Lopez is a 54 year old female with COPD, asthma, sleep apnea, HTN, but no other previously known cardiac disease (echo 08/2014 showed normal LV function only mild MR and trivial TR with normal nuclear stress test) Now a transfer from OSH for due to Echo findings of severe MR and LHC with lesion of the ramus intermediate. She has been transferred to [facility] due to moderate disease in the ramus intermedius. NSTEMI (non-ST elevated myocardial infarction) 0 03/25/2015 05/21/2018 Overview: ASA 81 Atorvastatin 40 Lisinopril 40 Last Assessment & Plan: She takes the lisinopril the statin and the ASA. Neck pain, chronic 02/22/2015 11/06/2016 Non-ST elevation myocardial infarction (NSTEMI), initial episode of care 08/04/2014 05/21/2018 Overview: -Pt transferred to [facility] for NSTEMI? In setting of EKG abnormality and elevated troponin I, thought to be primary ACS vs 2/2 to increase in cardiac demand in setting of sepsis -PT never had CP OSH w/u -EKG --T wave changes in lateral leads -Elevated troponin I, Ck MB WNL -ECHO/Doppler --> Segmental wall motion abnormalities, EF 50%, +2 MR & TR, RVSP 38, no shunt -CTA 07/26/2014 --> No PE, no aortic dissection, Diffuse pulmonary infiltrates, cardiomegaly with evidence of RSHF -Started on Heparin gtt RF: HTN, ex smoker, FH of CAD (father <60 years), Off statins for long time, till restarted in the OSH, denies DM Plan -Trend CE x3 -High intensity statins, Lipitor 80mg QD -Tight BP control -Will hold off heparin, given that the pt is CP free -ECHO -Depending on ECHO results will proceed with either NM stress test or LHC Last Assessment & Plan: PMR (polymyalgia rheumatica) 07/20/2013 Polymyositis 09/29/2011 05/21/2018 Elevated blood pressure 09/09/2011 12/02/19 14 Chronic pain 04/18/2011 11/06/2016 Last Assessment & Plan: Takes ultram for chronic pains, myalgias and joint pains. Takes 2 tabs qid. States this does help with her pains. Dysphagia 10/25/2010 12/01/2013 Hypokalemia 10/04/2010 12/01/2013 Left Plantar fasciitis 10/04/2010 4 Bipolar affective 04/27/2010 05/21/2018 Overview: Continue Diazepam 10mg BID CRI (chronic renal insufficiency) 09/30/2009 12/01/2013 ANEMIA BLOOD LOSS CHRONIC 12/23/20072013 documented as of this encounter (statuses as of 08/16/2021) [facility] History of Past illness Narrative* Problem Noted Date Resolved Date Chronic obstructive pulmonary disease 12/26/2015 03/15/2016 Coronary artery disease invo lving [place] coronary artery of [place] heart with angina pectoris 12/26/2015 06/07/2017 Atypical chest pain 12/26/2015 06/07/2017 Chronic right shoulder pain 07/14/2015 09/0 07/2016 SUMMARY 03/27/2015 10/25/2017 Overview: Leyda Lopez is a 54 year old female with COPD, asthma, sleep apnea, HTN, but no other previously known cardiac disease (echo 08/2014 showed normal LV function only mild MR and trivial TR with normal nuclear stress test) Now a transfer from OSH for due to Echo findings of severe MR and LHC with lesion of the ramus intermediate. She has been transferred to [facility] due to moderate disease in the ramus intermedius. NSTEMI (non-ST elevated myocardial infarction) 0 03/25/2015 05/21/2018 Overview: ASA 81 Atorvastatin 40 Lisinopril 40 Last Assessment & Plan: She takes the lisinopril the statin and the ASA. Neck pain, chronic 02/22/2015 11/06/2016 Non-ST elevation myocardial infarction (NSTEMI), initial episode of care 08/04/2014 05/21/2018 Overview: -Pt transferred to [facility] for NSTEMI? In setting of EKG abnormality and elevated troponin I, thought to be primary ACS vs 2/2 to increase in cardiac demand in setting of sepsis -PT never had CP OSH w/u -EKG --T wave changes in lateral leads -Elevated troponin I, Ck MB WNL -ECHO/Doppler --> Segmental wall motion abnormalities, EF 50%, +2 MR & TR, RVSP 38, no shunt -CTA 07/26/2014 --> No PE, no aortic dissection, Diffuse pulmonary infiltrates, cardiomegaly with evidence of RSHF -Started on Heparin gtt RF: HTN, ex smoker, FH of CAD (father <60 years), Off statins for long time, till restarted in the OSH, denies DM Plan -Trend CE x3 -High intensity statins, Lipitor 80mg QD -Tight BP control -Will hold off heparin, given that the pt is CP free -ECHO -Depending on ECHO results will proceed with either NM stress test or LHC Last Assessment & Plan: PMR (polymyalgia rheumatica) 07/20/2013 Polymyositis 09/29/2011 05/21/2018 Elevated blood pressure 09/09/2011 12/02/19 14 Chronic pain 04/18/2011 11/06/2016 Last Assessment & Plan: Takes ultram for chronic pains, myalgias and joint pains. Takes 2 tabs qid. States this does help with her pains. Dysphagia 10/25/2010 12/01/2013 Hypokalemia 10/04/2010 12/01/2013 Left Plantar fasciitis 10/04/2010 4 Bipolar affective 04/27/2010 05/21/2018 Overview: Continue Diazepam 10mg BID CRI (chronic renal insufficiency) 09/30/2009 12/01/2013 ANEMIA BLOOD LOSS CHRONIC 12/23/20072013 documented as of this encounter (statuses as of 08/24/2021) [facility] History of Past illness Narrative* Problem Noted Date Resolved Date Chronic obstructive pulmonary disease 12/26/2015 03/15/2016 Coronary artery disease invo lving [place] coronary artery of [place] heart with angina pectoris 12/26/2015 06/07/2017 Atypical chest pain 12/26/2015 06/07/2017 Chronic right shoulder pain 07/14/2015 09/0 07/2016 SUMMARY 03/27/2015 10/25/2017 Overview: Leyda David John is a 54 year old female with COPD, asthma, sleep apnea, HTN, but no other previously known cardiac disease (echo 08/2014 showed normal LV function only mild MR and trivial TR with normal nuclear stress test) Now a transfer from OSH for due to Echo findings of severe MR and LHC with lesion of the ramus intermediate. She has been transferred to [facility] due to moderate disease in the ramus intermedius. NSTEMI (non-ST elevated myocardial infarction) 0 03/25/2015 05/21/2018 Overview: ASA 81 Atorvastatin 40 Lisinopril 40 Last Assessment & Plan: She takes the lisinopril the statin and the ASA. Neck pain, chronic 02/22/2015 11/06/2016 Non-ST elevation myocardial infarction (NSTEMI), initial episode of care 08/04/2014 05/21/2018 Overview: -Pt transferred to [facility] for NSTEMI? In setting of EKG abnormality and elevated troponin I, thought to be primary ACS vs 2/2 to increase in cardiac demand in setting of sepsis -PT never had CP OSH w/u -EKG --T wave changes in lateral leads -Elevated troponin I, Ck MB WNL -ECHO/Doppler --> Segmental wall motion abnormalities, EF 50%, +2 MR & TR, RVSP 38, no shunt -CTA 07/26/2014 --> No PE, no aortic dissection, Diffuse pulmonary infiltrates, cardiomegaly with evidence of RSHF -Started on Heparin gtt RF: HTN, ex smoker, FH of CAD (father <60 years), Off statins for long time, till restarted in the OSH, denies DM Plan -Trend CE x3 -High intensity statins, Lipitor 80mg QD -Tight BP control -Will hold off heparin, given that the pt is CP free -ECHO -Depending on ECHO results will proceed with either NM stress test or LHC Last Assessment & Plan: PMR (polymyalgia rheumatica) 07/20/2013 Polymyositis 09/29/2011 05/21/2018 Elevated blood pressure 09/09/2011 12/02/19 14 Chronic pain 04/18/2011 11/06/2016 Last Assessment & Plan: Takes ultram for chronic pains, myalgias and joint pains. Takes 2 tabs qid. States this does help with her pains. Dysphagia 10/25/2010 12/01/2013 Hypokalemia 10/04/2010 12/01/2013 Left Plantar fasciitis 10/04/2010 4 Bipolar affective 04/27/2010 05/21/2018 Overview: Continue Diazepam 10mg BID CRI (chronic renal insufficiency) 09/30/2009 12/01/2013 ANEMIA BLOOD LOSS CHRONIC 12/23/20072013 documented as of this encounter (statuses as of 08/31/2021) [facility] History of Past illness Narrative* Problem Noted Date Resolved Date Chronic obstructive pulmonary disease 12/26/2015 03/15/2016 Coronary artery disease invo lving [place] coronary artery of [place] heart with angina pectoris 12/26/2015 06/07/2017 Atypical chest pain 12/26/2015 06/07/2017 Chronic right shoulder pain 07/14/2015 09/0 07/2016 SUMMARY 03/27/2015 10/25/2017 Overview: Leyda Lopez is a 54 year old female with COPD, asthma, sleep apnea, HTN, but no other previously known cardiac disease (echo 08/2014 showed normal LV function only mild MR and trivial TR with normal nuclear stress test) Now a transfer from OSH for due to Echo findings of severe MR and LHC with lesion of the ramus intermediate. She has been transferred to [facility] due to moderate disease in the ramus intermedius. NSTEMI (non-ST elevated myocardial infarction) 0 03/25/2015 05/21/2018 Overview: ASA 81 Atorvastatin 40 Lisinopril 40 Last Assessment & Plan: She takes the lisinopril the statin and the ASA. Neck pain, chronic 02/22/2015 11/06/2016 Non-ST elevation myocardial infarction (NSTEMI), initial episode of care 08/04/2014 05/21/2018 Overview: -Pt transferred to [facility] for NSTEMI? In setting of EKG abnormality and elevated troponin I, thought to be primary ACS vs 2/2 to increase in cardiac demand in setting of sepsis -PT never had CP OSH w/u -EKG --T wave changes in lateral leads -Elevated troponin I, Ck MB WNL -ECHO/Doppler --> Segmental wall motion abnormalities, EF 50%, +2 MR & TR, RVSP 38, no shunt -CTA 07/26/2014 --> No PE, no aortic dissection, Diffuse pulmonary infiltrates, cardiomegaly with evidence of RSHF -Started on Heparin gtt RF: HTN, ex smoker, FH of CAD (father <60 years), Off statins for long time, till restarted in the OSH, denies DM Plan -Trend CE x3 -High intensity statins, Lipitor 80mg QD -Tight BP control -Will hold off heparin, given that the pt is CP free -ECHO -Depending on ECHO results will proceed with either NM stress test or LHC Last Assessment & Plan: PMR (polymyalgia rheumatica) 07/20/2013 Polymyositis 09/29/2011 05/21/2018 Elevated blood pressure 09/09/2011 12/02/19 14 Chronic pain 04/18/2011 11/06/2016 Last Assessment & Plan: Takes ultram for chronic pains, myalgias and joint pains. Takes 2 tabs qid. States this does help with her pains. Dysphagia 10/25/2010 12/01/2013 Hypokalemia 10/04/2010 12/01/2013 Left Plantar fasciitis 10/04/2010 4 Bipolar affective 04/27/2010 05/21/2018 Overview: Continue Diazepam 10mg BID CRI (chronic renal insufficiency) 09/30/2009 12/01/2013 ANEMIA BLOOD LOSS CHRONIC 12/23/20072013 documented as of this encounter (statuses as of 09/08/2021) [facility] History of Past illness Narrative* Problem Noted Date Resolved Date Chronic obstructive pulmonary disease 12/26/2015 03/15/2016 Coronary artery disease invo lving [place] coronary artery of [place] heart with angina pectoris 12/26/2015 06/07/2017 Atypical chest pain 12/26/2015 06/07/2017 Chronic right shoulder pain 07/14/2015 09/0 07/2016 SUMMARY 03/27/2015 10/25/2017 Overview: Leyda Lopez is a 54 year old female with COPD, asthma, sleep apnea, HTN, but no other previously known cardiac disease (echo 08/2014 showed normal LV function only mild MR and trivial TR with normal nuclear stress test) Now a transfer from OSH for due to Echo findings of severe MR and LHC with lesion of the ramus intermediate. She has been transferred to [facility] due to moderate disease in the ramus intermedius. NSTEMI (non-ST elevated myocardial infarction) 0 03/25/2015 05/21/2018 Overview: ASA 81 Atorvastatin 40 Lisinopril 40 Last Assessment & Plan: She takes the lisinopril the statin and the ASA. Neck pain, chronic 02/22/2015 11/06/2016 Non-ST elevation myocardial infarction (NSTEMI), initial episode of care 08/04/2014 05/21/2018 Overview: -Pt transferred to [facility] for NSTEMI? In setting of EKG abnormality and elevated troponin I, thought to be primary ACS vs 2/2 to increase in cardiac demand in setting of sepsis -PT never had CP OSH w/u -EKG --T wave changes in lateral leads -Elevated troponin I, Ck MB WNL -ECHO/Doppler --> Segmental wall motion abnormalities, EF 50%, +2 MR & TR, RVSP 38, no shunt -CTA 07/26/2014 --> No PE, no aortic dissection, Diffuse pulmonary infiltrates, cardiomegaly with evidence of RSHF -Started on Heparin gtt RF: HTN, ex smoker, FH of CAD (father <60 years), Off statins for long time, till restarted in the OSH, denies DM Plan -Trend CE x3 -High intensity statins, Lipitor 80mg QD -Tight BP control -Will hold off heparin, given that the pt is CP free -ECHO -Depending on ECHO results will proceed with either NM stress test or LHC Last Assessment & Plan: PMR (polymyalgia rheumatica) 07/20/2013 Polymyositis 09/29/2011 05/21/2018 Elevated blood pressure 09/09/2011 12/02/19 14 Chronic pain 04/18/2011 11/06/2016 Last Assessment & Plan: Takes ultram for chronic pains, myalgias and joint pains. Takes 2 tabs qid. States this does help with her pains. Dysphagia 10/25/2010 12/01/2013 Hypokalemia 10/04/2010 12/01/2013 Left Plantar fasciitis 10/04/2010 4 Bipolar affective 04/27/2010 05/21/2018 Overview: Continue Diazepam 10mg BID CRI (chronic renal insufficiency) 09/30/2009 12/01/2013 ANEMIA BLOOD LOSS CHRONIC 12/23/20072013 documented as of this encounter (statuses as of 09/11/2021) [facility] History of Past illness Narrative* Problem Noted Date Resolved Date Chronic obstructive pulmonary disease 12/26/2015 03/15/2016 Coronary artery disease invo lving [place] coronary artery of [place] heart with angina pectoris 12/26/2015 06/07/2017 Atypical chest pain 12/26/2015 06/07/2017 Chronic right shoulder pain 07/14/2015 09/0 07/2016 SUMMARY 03/27/2015 10/25/2017 Overview: Leyda Lopez is a 54 year old female with COPD, asthma, sleep apnea, HTN, but no other previously known cardiac disease (echo 08/2014 showed normal LV function only mild MR and trivial TR with normal nuclear stress test) Now a transfer from OSH for due to Echo findings of severe MR and LHC with lesion of the ramus intermediate. She has been transferred to [facility] due to moderate disease in the ramus intermedius. NSTEMI (non-ST elevated myocardial infarction) 0 03/25/2015 05/21/2018 Overview: ASA 81 Atorvastatin 40 Lisinopril 40 Last Assessment & Plan: She takes the lisinopril the statin and the ASA. Neck pain, chronic 02/22/2015 11/06/2016 Non-ST elevation myocardial infarction (NSTEMI), initial episode of care 08/04/2014 05/21/2018 Overview: -Pt transferred to [facility] for NSTEMI? In setting of EKG abnormality and elevated troponin I, thought to be primary ACS vs 2/2 to increase in cardiac demand in setting of sepsis -PT never had CP OSH w/u -EKG --T wave changes in lateral leads -Elevated troponin I, Ck MB WNL -ECHO/Doppler --> Segmental wall motion abnormalities, EF 50%, +2 MR & TR, RVSP 38, no shunt -CTA 07/26/2014 --> No PE, no aortic dissection, Diffuse pulmonary infiltrates, cardiomegaly with evidence of RSHF -Started on Heparin gtt RF: HTN, ex smoker, FH of CAD (father <60 years), Off statins for long time, till restarted in the OSH, denies DM Plan -Trend CE x3 -High intensity statins, Lipitor 80mg QD -Tight BP control -Will hold off heparin, given that the pt is CP free -ECHO -Depending on ECHO results will proceed with either NM stress test or LHC Last Assessment & Plan: PMR (polymyalgia rheumatica) 07/20/2013 Polymyositis 09/29/2011 05/21/2018 Elevated blood pressure 09/09/2011 12/02/19 14 Chronic pain 04/18/2011 11/06/2016 Last Assessment & Plan: Takes ultram for chronic pains, myalgias and joint pains. Takes 2 tabs qid. States this does help with her pains. Dysphagia 10/25/2010 12/01/2013 Hypokalemia 10/04/2010 12/01/2013 Left Plantar fasciitis 10/04/2010 4 Bipolar affective 04/27/2010 05/21/2018 Overview: Continue Diazepam 10mg BID CRI (chronic renal insufficiency) 09/30/2009 12/01/2013 ANEMIA BLOOD LOSS CHRONIC 12/23/20072013 documented as of this encounter (statuses as of 10/05/2021) [facility] History of Past illness Narrative* Problem Noted Date Resolved Date Chronic obstructive pulmonary disease 12/26/2015 03/15/2016 Coronary artery disease invo lving [place] coronary artery of [place] heart with angina pectoris 12/26/2015 06/07/2017 Atypical chest pain 12/26/2015 06/07/2017 Chronic right shoulder pain 07/14/2015 09/0 07/2016 SUMMARY 03/27/2015 10/25/2017 Overview: Leyda Lopez is a 54 year old female with COPD, asthma, sleep apnea, HTN, but no other previously known cardiac disease (echo 08/2014 showed normal LV function only mild MR and trivial TR with normal nuclear stress test) Now a transfer from [facility]SH for due to Echo findings of severe MR and LHC with lesion of the ramus intermediate. She has been transferred to [facility] due to moderate disease in the ramus intermedius. NSTEMI (non-ST elevated myocardial infarction) 0 03/25/2015 05/21/2018 Overview: ASA 81 Atorvastatin 40 Lisinopril 40 Last Assessment & Plan: She takes the lisinopril the statin and the ASA. Neck pain, chronic 02/22/2015 11/06/2016 Non-ST elevation myocardial infarction (NSTEMI), initial episode of care 08/04/2014 05/21/2018 Overview: -Pt transferred to [facility] for NSTEMI? In setting of EKG abnormality and elevated troponin I, thought to be primary ACS vs 2/2 to increase in cardiac demand in setting of sepsis -PT never had CP OSH w/u -EKG --T wave changes in lateral leads -Elevated troponin I, Ck MB WNL -ECHO/Doppler --> Segmental wall motion abnormalities, EF 50%, +2 MR & TR, RVSP 38, no shunt -CTA 07/26/2014 --> No PE, no aortic dissection, Diffuse pulmonary infiltrates, cardiomegaly with evidence of RSHF -Started on Heparin gtt RF: HTN, ex smoker, FH of CAD (father <60 years), Off statins for long time, till restarted in the OSH, denies DM Plan -Trend CE x3 -High intensity statins, Lipitor 80mg QD -Tight BP control -Will hold off heparin, given that the pt is CP free -ECHO -Depending on ECHO results will proceed with either NM stress test or LHC Last Assessment & Plan: PMR (polymyalgia rheumatica) 07/20/2013 Polymyositis 09/29/2011 05/21/2018 Elevated blood pressure 09/09/2011 12/02/19 14 Chronic pain 04/18/2011 11/06/2016 Last Assessment & Plan: Takes ultram for chronic pains, myalgias and joint pains. Takes 2 tabs qid. States this does help with her pains. Dysphagia 10/25/2010 12/01/2013 Hypokalemia 10/04/2010 12/01/2013 Left Plantar fasciitis 10/04/2010 4 Bipolar affective 04/27/2010 05/21/2018 Overview: Continue Diazepam 10mg BID CRI (chronic renal insufficiency) 09/30/2009 12/01/2013 ANEMIA BLOOD LOSS CHRONIC 12/23/20072013 documented as of this encounter (statuses as of 10/06/2021) [facility] History of Past illness Narrative* Problem Noted Date Resolved Date Chronic obstructive pulmonary disease 12/26/2015 03/15/2016 Coronary artery disease invo lving [place] coronary artery of [place] heart with angina pectoris 12/26/2015 06/07/2017 Atypical chest pain 12/26/2015 06/07/2017 Chronic right shoulder pain 07/14/201507/2016 SUMMARY 03/27/2015 10/25/2017 Overview: Leyda Lopez is a 54 year old female with COPD, asthma, sleep apnea, HTN, but no other previously known cardiac disease (echo 08/2014 showed normal LV function only mild MR and trivial TR with normal nuclear stress test) Now a transfer from [facility] for due to Echo findings of severe MR and LHC with lesion of the ramus intermediate. She has been transferred to [facility] due to moderate disease in the ramus intermedius. NSTEMI (non-ST elevated myocardial infarction) 0 03/25/2015 05/21/2018 Overview: ASA 81 Atorvastatin 40 Lisinopril 40 Last Assessment & Plan: She takes the lisinopril the statin and the ASA. Neck pain, chronic 02/22/2015 11/06/2016 Non-ST elevation myocardial infarction (NSTEMI), initial episode of care 08/04/2014 05/21/2018 Overview: -Pt transferred to [facility] for NSTEMI? In setting of EKG abnormality and elevated troponin I, thought to be primary ACS vs 2/2 to increase in cardiac demand in setting of sepsis -PT never had CP OSH w/u -EKG --T wave changes in lateral leads -Elevated troponin I, Ck MB WNL -ECHO/Doppler --> Segmental wall motion abnormalities, EF 50%, +2 MR & TR, RVSP 38, no shunt -CTA 07/26/2014 --> No PE, no aortic dissection, Diffuse pulmonary infiltrates, cardiomegaly with evidence of RSHF -Started on Heparin gtt RF: HTN, ex smoker, FH of CAD (father <60 years), Off statins for long time, till restarted in the OSH, denies DM Plan -Trend CE x3 -High intensity statins, Lipitor 80mg QD -Tight BP control -Will hold off heparin, given that the pt is CP free -ECHO -Depending on ECHO results will proceed with either NM stress test or LHC Last Assessment & Plan: PMR (polymyalgia rheumatica) 07/20/2013 Polymyositis 09/29/2011 05/21/2018 Elevated blood pressure 09/09/2011 12/02/19 14 Chronic pain 04/18/2011 11/06/2016 Last Assessment & Plan: Takes ultram for chronic pains, myalgias and joint pains. Takes 2 tabs qid. States this does help with her pains. Dysphagia 10/25/2010 12/01/2013 Hypokalemia 10/04/2010 12/01/2013 Left Plantar fasciitis 10/04/2010 4 Bipolar affective 04/27/2010 05/21/2018 Overview: Continue Diazepam 10mg BID CRI (chronic renal insufficiency) 09/30/2009 12/01/2013 ANEMIA BLOOD LOSS CHRONIC 12/23/20072013 documented as of this encounter (statuses as of 10/13/2021) [facility] History of Past illness Narrative* Problem Noted Date Resolved Date Chronic obstructive pulmonary disease 12/26/2015 03/15/2016 Coronary artery disease invo lving [place] coronary artery of [place] heart with angina pectoris 12/26/2015 06/07/2017 Atypical chest pain 12/26/2015 06/07/2017 Chronic right shoulder pain 07/14/2015/07/2016 SUMMARY 03/27/2015 10/25/2017 Overview: Leyda Lopez is a 54 year old female with COPD, asthma, sleep apnea, HTN, but no other previously known cardiac disease (echo 08/2014 showed normal LV function only mild MR and trivial TR with normal nuclear stress test) Now a transfer from [facility] for due to Echo findings of severe MR and LHC with lesion of the ramus intermediate. She has been transferred to [facility] due to moderate disease in the ramus intermedius. NSTEMI (non-ST elevated myocardial infarction) 0 03/25/2015 05/21/2018 Overview: ASA 81 Atorvastatin 40 Lisinopril 40 Last Assessment & Plan: She takes the lisinopril the statin and the ASA. Neck pain, chronic 02/22/2015 11/06/2016 Non-ST elevation myocardial infarction (NSTEMI), initial episode of care 08/04/2014 05/21/2018 Overview: -Pt transferred to [facility] for NSTEMI? In setting of EKG abnormality and elevated troponin I, thought to be primary ACS vs 2/2 to increase in cardiac demand in setting of sepsis -PT never had CP OSH w/u -EKG --T wave changes in lateral leads -Elevated troponin I, Ck MB WNL -ECHO/Doppler --> Segmental wall motion abnormalities, EF 50%, +2 MR & TR, RVSP 38, no shunt -CTA 07/26/2014 --> No PE, no aortic dissection, Diffuse pulmonary infiltrates, cardiomegaly with evidence of RSHF -Started on Heparin gtt RF: HTN, ex smoker, FH of CAD (father <60 years), Off statins for long time, till restarted in the OSH, denies DM Plan -Trend CE x3 -High intensity statins, Lipitor 80mg QD -Tight BP control -Will hold off heparin, given that the pt is CP free -ECHO -Depending on ECHO results will proceed with either NM stress test or LHC Last Assessment & Plan: PMR (polymyalgia rheumatica) 07/20/2013 Polymyositis 09/29/2011 05/21/2018 Elevated blood pressure 09/09/2011 12/02/19 14 Chronic pain 04/18/2011 11/06/2016 Last Assessment & Plan: Takes ultram for chronic pains, myalgias and joint pains. Takes 2 tabs qid. States this does help with her pains. Dysphagia 10/25/2010 12/01/2013 Hypokalemia 10/04/2010 12/01/2013 Left Plantar fasciitis 10/04/2010 4 Bipolar affective 04/27/2010 05/21/2018 Overview: Continue Diazepam 10mg BID CRI (chronic renal insufficiency) 09/30/2009 12/01/2013 ANEMIA BLOOD LOSS CHRONIC 12/23/20072013 documented as of this encounter (statuses as of 10/13/2021) [facility] History of Past illness Narrative* Problem Noted Date Resolved Date Chronic obstructive pulmonary disease 12/26/2015 03/15/2016 Coronary artery disease invo lving [place] coronary artery of [place] heart with angina pectoris 12/26/2015 06/07/2017 Atypical chest pain 12/26/2015 06/07/2017 Chronic right shoulder pain 07/14/2015 09/0 07/2016 SUMMARY 03/27/2015 10/25/2017 Overview: Leyda Lopez is a 54 year old female with COPD, asthma, sleep apnea, HTN, but no other previously known cardiac disease (echo 08/2014 showed normal LV function only mild MR and trivial TR with normal nuclear stress test) Now a transfer from OSH for due to Echo findings of severe MR and LHC with lesion of the ramus intermediate. She has been transferred to [facility] due to moderate disease in the ramus intermedius. NSTEMI (non-ST elevated myocardial infarction) 0 03/25/2015 05/21/2018 Overview: ASA 81 Atorvastatin 40 Lisinopril 40 Last Assessment & Plan: She takes the lisinopril the statin and the ASA. Neck pain, chronic 02/22/2015 11/06/2016 Non-ST elevation myocardial infarction (NSTEMI), initial episode of care 08/04/2014 05/21/2018 Overview: -Pt transferred to [facility] for NSTEMI? In setting of EKG abnormality and elevated troponin I, thought to be primary ACS vs 2/2 to increase in cardiac demand in setting of sepsis -PT never had CP OSH w/u -EKG --T wave changes in lateral leads -Elevated troponin I, Ck MB WNL -ECHO/Doppler --> Segmental wall motion abnormalities, EF 50%, +2 MR & TR, RVSP 38, no shunt -CTA 07/26/2014 --> No PE, no aortic dissection, Diffuse pulmonary infiltrates, cardiomegaly with evidence of RSHF -Started on Heparin gtt RF: HTN, ex smoker, FH of CAD (father <60 years), Off statins for long time, till restarted in the OSH, denies DM Plan -Trend CE x3 -High intensity statins, Lipitor 80mg QD -Tight BP control -Will hold off heparin, given that the pt is CP free -ECHO -Depending on ECHO results will proceed with either NM stress test or LHC Last Assessment & Plan: PMR (polymyalgia rheumatica) 07/20/2013 Polymyositis 09/29/2011 05/21/2018 Elevated blood pressure 09/09/2011 12/02/19 14 Chronic pain 04/18/2011 11/06/2016 Last Assessment & Plan: Takes ultram for chronic pains, myalgias and joint pains. Takes 2 tabs qid. States this does help with her pains. Dysphagia 10/25/2010 12/01/2013 Hypokalemia 10/04/2010 12/01/2013 Left Plantar fasciitis 10/04/2010 4 Bipolar affective 04/27/2010 05/21/2018 Overview: Continue Diazepam 10mg BID CRI (chronic renal insufficiency) 09/30/2009 12/01/2013 ANEMIA BLOOD LOSS CHRONIC 12/23/20072013 documented as of this encounter (statuses as of 10/18/2021) [facility] History of Past illness Narrative* Problem Noted Date Resolved Date Chronic obstructive pulmonary disease 12/26/2015 03/15/2016 Coronary artery disease invo lving [place] coronary artery of [place] heart with angina pectoris 12/26/2015 06/07/2017 Atypical chest pain 12/26/2015 06/07/2017 Chronic right shoulder pain 07/14/2015 09/0 07/2016 SUMMARY 03/27/2015 10/25/2017 Overview: Leyda Lopez is a 54 year old female with COPD, asthma, sleep apnea, HTN, but no other previously known cardiac disease (echo 08/2014 showed normal LV function only mild MR and trivial TR with normal nuclear stress test) Now a transfer from OSH for due to Echo findings of severe MR and LHC with lesion of the ramus intermediate. She has been transferred to [facility] due to moderate disease in the ramus intermedius. NSTEMI (non-ST elevated myocardial infarction) 0 03/25/2015 05/21/2018 Overview: ASA 81 Atorvastatin 40 Lisinopril 40 Last Assessment & Plan: She takes the lisinopril the statin and the ASA. Neck pain, chronic 02/22/2015 11/06/2016 Non-ST elevation myocardial infarction (NSTEMI), initial episode of care 08/04/2014 05/21/2018 Overview: -Pt transferred to [facility] for NSTEMI? In setting of EKG abnormality and elevated troponin I, thought to be primary ACS vs 2/2 to increase in cardiac demand in setting of sepsis -PT never had CP OSH w/u -EKG --T wave changes in lateral leads -Elevated troponin I, Ck MB WNL -ECHO/Doppler --> Segmental wall motion abnormalities, EF 50%, +2 MR & TR, RVSP 38, no shunt -CTA 07/26/2014 --> No PE, no aortic dissection, Diffuse pulmonary infiltrates, cardiomegaly with evidence of RSHF -Started on Heparin gtt RF: HTN, ex smoker, FH of CAD (father <60 years), Off statins for long time, till restarted in the OSH, denies DM Plan -Trend CE x3 -High intensity statins, Lipitor 80mg QD -Tight BP control -Will hold off heparin, given that the pt is CP free -ECHO -Depending on ECHO results will proceed with either NM stress test or LHC Last Assessment & Plan: PMR (polymyalgia rheumatica) 07/20/2013 Polymyositis 09/29/2011 05/21/2018 Elevated blood pressure 09/09/2011 12/02/19 14 Chronic pain 04/18/2011 11/06/2016 Last Assessment & Plan: Takes ultram for chronic pains, myalgias and joint pains. Takes 2 tabs qid. States this does help with her pains. Dysphagia 10/25/2010 12/01/2013 Hypokalemia 10/04/2010 12/01/2013 Left Plantar fasciitis 10/04/2010 4 Bipolar affective 04/27/2010 05/21/2018 Overview: Continue Diazepam 10mg BID CRI (chronic renal insufficiency) 09/30/2009 12/01/2013 ANEMIA BLOOD LOSS CHRONIC 12/23/20072013 documented as of this encounter (statuses as of 10/20/2021) [facility] History of Past illness Narrative* Problem Noted Date Resolved Date Chronic obstructive pulmonary disease 12/26/2015 03/15/2016 Coronary artery disease invo lving [place] coronary artery of [place] heart with angina pectoris 12/26/2015 06/07/2017 Atypical chest pain 12/26/2015 06/07/2017 Chronic right shoulder pain 07/14/2015 09/0 07/2016 SUMMARY 03/27/2015 10/25/2017 Overview: Leyda Lopez is a 54 year old female with COPD, asthma, sleep apnea, HTN, but no other previously known cardiac disease (echo 08/2014 showed normal LV function only mild MR and trivial TR with normal nuclear stress test) Now a transfer from OSH for due to Echo findings of severe MR and LHC with lesion of the ramus intermediate. She has been transferred to [facility] due to moderate disease in the ramus intermedius. NSTEMI (non-ST elevated myocardial infarction) 0 03/25/2015 05/21/2018 Overview: ASA 81 Atorvastatin 40 Lisinopril 40 Last Assessment & Plan: She takes the lisinopril the statin and the ASA. Neck pain, chronic 02/22/2015 11/06/2016 Non-ST elevation myocardial infarction (NSTEMI), initial episode of care 08/04/2014 05/21/2018 Overview: -Pt transferred to [facility] for NSTEMI? In setting of EKG abnormality and elevated troponin I, thought to be primary ACS vs 2/2 to increase in cardiac demand in setting of sepsis -PT never had CP OSH w/u -EKG --T wave changes in lateral leads -Elevated troponin I, Ck MB WNL -ECHO/Doppler --> Segmental wall motion abnormalities, EF 50%, +2 MR & TR, RVSP 38, no shunt -CTA 07/26/2014 --> No PE, no aortic dissection, Diffuse pulmonary infiltrates, cardiomegaly with evidence of RSHF -Started on Heparin gtt RF: HTN, ex smoker, FH of CAD (father <60 years), Off statins for long time, till restarted in the OSH, denies DM Plan -Trend CE x3 -High intensity statins, Lipitor 80mg QD -Tight BP control -Will hold off heparin, given that the pt is CP free -ECHO -Depending on ECHO results will proceed with either NM stress test or LHC Last Assessment & Plan: PMR (polymyalgia rheumatica) 07/20/2013 Polymyositis 09/29/2011 05/21/2018 Elevated blood pressure 09/09/2011 12/02/19 14 Chronic pain 04/18/2011 11/06/2016 Last Assessment & Plan: Takes ultram for chronic pains, myalgias and joint pains. Takes 2 tabs qid. States this does help with her pains. Dysphagia 10/25/2010 12/01/2013 Hypokalemia 10/04/2010 12/01/2013 Left Plantar fasciitis 10/04/2010 4 Bipolar affective 04/27/2010 05/21/2018 Overview: Continue Diazepam 10mg BID CRI (chronic renal insufficiency) 09/30/2009 12/01/2013 ANEMIA BLOOD LOSS CHRONIC 12/23/20072013 documented as of this encounter (statuses as of 10/23/2021) [facility] History of Past illness Narrative* Problem Noted Date Resolved Date Chronic obstructive pulmonary disease 12/26/2015 03/15/2016 Coronary artery disease invo lving [place] coronary artery of [place] heart with angina pectoris 12/26/2015 06/07/2017 Atypical chest pain 12/26/2015 06/07/2017 Chronic right shoulder pain 07/14/2015 09/0 07/2016 SUMMARY 03/27/2015 10/25/2017 Overview: Leyda Lopez is a 54 year old female with COPD, asthma, sleep apnea, HTN, but no other previously known cardiac disease (echo 08/2014 showed normal LV function only mild MR and trivial TR with normal nuclear stress test) Now a transfer from OSH for due to Echo findings of severe MR and LHC with lesion of the ramus intermediate. She has been transferred to [facility] due to moderate disease in the ramus intermedius. NSTEMI (non-ST elevated myocardial infarction) 0 03/25/2015 05/21/2018 Overview: ASA 81 Atorvastatin 40 Lisinopril 40 Last Assessment & Plan: She takes the lisinopril the statin and the ASA. Neck pain, chronic 02/22/2015 11/06/2016 Non-ST elevation myocardial infarction (NSTEMI), initial episode of care 08/04/2014 05/21/2018 Overview: -Pt transferred to [facility] for NSTEMI? In setting of EKG abnormality and elevated troponin I, thought to be primary ACS vs 2/2 to increase in cardiac demand in setting of sepsis -PT never had CP OSH w/u -EKG --T wave changes in lateral leads -Elevated troponin I, Ck MB WNL -ECHO/Doppler --> Segmental wall motion abnormalities, EF 50%, +2 MR & TR, RVSP 38, no shunt -CTA 07/26/2014 --> No PE, no aortic dissection, Diffuse pulmonary infiltrates, cardiomegaly with evidence of RSHF -Started on Heparin gtt RF: HTN, ex smoker, FH of CAD (father <60 years), Off statins for long time, till restarted in the OSH, denies DM Plan -Trend CE x3 -High intensity statins, Lipitor 80mg QD -Tight BP control -Will hold off heparin, given that the pt is CP free -ECHO -Depending on ECHO results will proceed with either NM stress test or LHC Last Assessment & Plan: PMR (polymyalgia rheumatica) 07/20/2013 Polymyositis 09/29/2011 05/21/2018 Elevated blood pressure 09/09/2011 12/02/19 14 Chronic pain 04/18/2011 11/06/2016 Last Assessment & Plan: Takes ultram for chronic pains, myalgias and joint pains. Takes 2 tabs qid. States this does help with her pains. Dysphagia 10/25/2010 12/01/2013 Hypokalemia 10/04/2010 12/01/2013 Left Plantar fasciitis 10/04/2010 4 Bipolar affective 04/27/2010 05/21/2018 Overview: Continue Diazepam 10mg BID CRI (chronic renal insufficiency) 09/30/2009 12/01/2013 ANEMIA BLOOD LOSS CHRONIC 12/23/20072013 documented as of this encounter (statuses as of 11/01/2021) [facility] History of Past illness Narrative* Problem Noted Date Resolved Date Chronic obstructive pulmonary disease 12/26/2015 03/15/2016 Coronary artery disease invo lving [place] coronary artery of [place] heart with angina pectoris 12/26/2015 06/07/2017 Atypical chest pain 12/26/2015 06/07/2017 Chronic right shoulder pain 07/14/2015/07/2016 SUMMARY 03/27/2015 10/25/2017 Overview: Leyda Lopez is a 54 year old female with COPD, asthma, sleep apnea, HTN, but no other previously known cardiac disease (echo 08/2014 showed normal LV function only mild MR and trivial TR with normal nuclear stress test) Now a transfer from OSH for due to Echo findings of severe MR and LHC with lesion of the ramus intermediate. She has been transferred to [facility] due to moderate disease in the ramus intermedius. NSTEMI (non-ST elevated myocardial infarction) 0 03/25/2015 05/21/2018 Overview: ASA 81 Atorvastatin 40 Lisinopril 40 Last Assessment & Plan: She takes the lisinopril the statin and the ASA. Neck pain, chronic 02/22/2015 11/06/2016 Non-ST elevation myocardial infarction (NSTEMI), initial episode of care 08/04/2014 05/21/2018 Overview: -Pt transferred to [facility] for NSTEMI? In setting of EKG abnormality and elevated troponin I, thought to be primary ACS vs 2/2 to increase in cardiac demand in setting of sepsis -PT never had CP OSH w/u -EKG --T wave changes in lateral leads -Elevated troponin I, Ck MB WNL -ECHO/Doppler --> Segmental wall motion abnormalities, EF 50%, +2 MR & TR, RVSP 38, no shunt -CTA 07/26/2014 --> No PE, no aortic dissection, Diffuse pulmonary infiltrates, cardiomegaly with evidence of RSHF -Started on Heparin gtt RF: HTN, ex smoker, FH of CAD (father <60 years), Off statins for long time, till restarted in the OSH, denies DM Plan -Trend CE x3 -High intensity statins, Lipitor 80mg QD -Tight BP control -Will hold off heparin, given that the pt is CP free -ECHO -Depending on ECHO results will proceed with either NM stress test or LHC Last Assessment & Plan: PMR (polymyalgia rheumatica) 07/20/2013 Polymyositis 09/29/2011 05/21/2018 Elevated blood pressure 09/09/2011 12/02/19 14 Chronic pain 04/18/2011 11/06/2016 Last Assessment & Plan: Takes ultram for chronic pains, myalgias and joint pains. Takes 2 tabs qid. States this does help with her pains. Dysphagia 10/25/2010 12/01/2013 Hypokalemia 10/04/2010 12/01/2013 Left Plantar fasciitis 10/04/2010 4 Bipolar affective 04/27/2010 05/21/2018 Overview: Continue Diazepam 10mg BID CRI (chronic renal insufficiency) 09/30/2009 12/01/2013 ANEMIA BLOOD LOSS CHRONIC 12/23/20072013 documented as of this encounter (statuses as of 11/09/2021) [facility] History of Past illness Narrative* Problem Noted Date Resolved Date Chronic obstructive pulmonary disease 12/26/2015 03/15/2016 Coronary artery disease invo lving [place] coronary artery of [place] heart with angina pectoris 12/26/2015 06/07/2017 Atypical chest pain 12/26/2015 06/07/2017 Chronic right shoulder pain 07/14/2015 09/0 07/2016 SUMMARY 03/27/2015 10/25/2017 Overview: Leyda Lopez is a 54 year old female with COPD, asthma, sleep apnea, HTN, but no other previously known cardiac disease (echo 08/2014 showed normal LV function only mild MR and trivial TR with normal nuclear stress test) Now a transfer from OSH for due to Echo findings of severe MR and LHC with lesion of the ramus intermediate. She has been transferred to [facility] due to moderate disease in the ramus intermedius. NSTEMI (non-ST elevated myocardial infarction) 0 03/25/2015 05/21/2018 Overview: ASA 81 Atorvastatin 40 Lisinopril 40 Last Assessment & Plan: She takes the lisinopril the statin and the ASA. Neck pain, chronic 02/22/2015 11/06/2016 Non-ST elevation myocardial infarction (NSTEMI), initial episode of care 08/04/2014 05/21/2018 Overview: -[facility] transferred [facility]? In setting of EKG abnormality and elevated troponin I, thought to be primary ACS vs 2/2 to increase in cardiac demand in setting of sepsis -PT never had CP OSH w/u -EKG --T wave changes in lateral leads -Elevated troponin I, Ck MB WNL -ECHO/Doppler --> Segmental wall motion abnormalities, EF 50%, +2 MR & TR, RVSP 38, no shunt -CTA 07/26/2014 --> No PE, no aortic dissection, Diffuse pulmonary infiltrates, cardiomegaly with evidence of RSHF -Started on Heparin gtt RF: HTN, ex smoker, FH of CAD (father <60 years), Off statins for long time, till restarted in the OSH, denies DM Plan -Trend CE x3 -High intensity statins, Lipitor 80mg QD -Tight BP control -Will hold off heparin, given that the pt is CP free -ECHO -Depending on ECHO results will proceed with either NM stress test or LHC Last Assessment & Plan: PMR (polymyalgia rheumatica) 07/20/2013 Polymyositis 09/29/2011 05/21/2018 Elevated blood pressure 09/09/2011 12/02/19 14 Chronic pain 04/18/2011 11/06/2016 Last Assessment & Plan: Takes ultram for chronic pains, myalgias and joint pains. Takes 2 tabs qid. States this does help with her pains. Dysphagia 10/25/2010 12/01/2013 Hypokalemia 10/04/2010 12/01/2013 Left Plantar fasciitis 10/04/2010 4 Bipolar affective 04/27/2010 05/21/2018 Overview: Continue Diazepam 10mg BID CRI (chronic renal insufficiency) 09/30/2009 12/01/2013 ANEMIA BLOOD LOSS CHRONIC 12/23/20072013 documented as of this encounter (statuses as of 11/10/2021) [facility] History of Past illness Narrative* Problem Noted Date Resolved Date Chronic obstructive pulmonary disease 12/26/2015 03/15/2016 Coronary artery disease invo lving [place] coronary artery of [place] heart with angina pectoris 12/26/2015 06/07/2017 Atypical chest pain 12/26/2015 06/07/2017 Chronic right shoulder pain 07/14/2015 09/0 07/2016 SUMMARY 03/27/2015 10/25/2017 Overview: Leyda Lopez is a 54 year old female with COPD, asthma, sleep apnea, HTN, but no other previously known cardiac disease (echo 08/2014 showed normal LV function only mild MR and trivial TR with normal nuclear stress test) Now a transfer from OSH for due to Echo findings of severe MR and LHC with lesion of the ramus intermediate. She has been transferred to [facility] due to moderate disease in the ramus intermedius. NSTEMI (non-ST elevated myocardial infarction) 0 03/25/2015 05/21/2018 Overview: ASA 81 Atorvastatin 40 Lisinopril 40 Last Assessment & Plan: She takes the lisinopril the statin and the ASA. Neck pain, chronic 02/22/2015 11/06/2016 Non-ST elevation myocardial infarction (NSTEMI), initial episode of care 08/04/2014 05/21/2018 Overview: -Pt transferred to [facility] for NSTEMI? In setting of EKG abnormality and elevated troponin I, thought to be primary ACS vs 2/2 to increase in cardiac demand in setting of sepsis -PT never had CP OSH w/u -EKG --T wave changes in lateral leads -Elevated troponin I, Ck MB WNL -ECHO/Doppler --> Segmental wall motion abnormalities, EF 50%, +2 MR & TR, RVSP 38, no shunt -CTA 07/26/2014 --> No PE, no aortic dissection, Diffuse pulmonary infiltrates, cardiomegaly with evidence of RSHF -Started on Heparin gtt RF: HTN, ex smoker, FH of CAD (father <60 years), Off statins for long time, till restarted in the OSH, denies DM Plan -Trend CE x3 -High intensity statins, Lipitor 80mg QD -Tight BP control -Will hold off heparin, given that the pt is CP free -ECHO -Depending on ECHO results will proceed with either NM stress test or LHC Last Assessment & Plan: PMR (polymyalgia rheumatica) 07/20/2013 Polymyositis 09/29/2011 05/21/2018 Elevated blood pressure 09/09/2011 12/02/19 14 Chronic pain 04/18/2011 11/06/2016 Last Assessment & Plan: Takes ultram for chronic pains, myalgias and joint pains. Takes 2 tabs qid. States this does help with her pains. Dysphagia 10/25/2010 12/01/2013 Hypokalemia 10/04/2010 12/01/2013 Left Plantar fasciitis 10/04/2010 4 Bipolar affective 04/27/2010 05/21/2018 Overview: Continue Diazepam 10mg BID CRI (chronic renal insufficiency) 09/30/2009 12/01/2013 ANEMIA BLOOD LOSS CHRONIC 12/23/20072013 documented as of this encounter (statuses as of 12/05/2021) [facility] History of Past illness Narrative* Problem Noted Date Resolved Date Chronic obstructive pulmonary disease 12/26/2015 03/15/2016 Coronary artery disease invo lving [place] coronary artery of [place] heart with angina pectoris 12/26/2015 06/07/2017 Atypical chest pain 12/26/2015 06/07/2017 Chronic right shoulder pain 07/14/2015 09/0 07/2016 SUMMARY 03/27/2015 10/25/2017 Overview: Leyda Lopez is a 54 year old female with COPD, asthma, sleep apnea, HTN, but no other previously known cardiac disease (echo 08/2014 showed normal LV function only mild MR and trivial TR with normal nuclear stress test) Now a transfer from [facility]SH for due to Echo findings of severe MR and LHC with lesion of the ramus intermediate. She has been transferred to [facility] due to moderate disease in the ramus intermedius. NSTEMI (non-ST elevated myocardial infarction) 0 03/25/2015 05/21/2018 Overview: ASA 81 Atorvastatin 40 Lisinopril 40 Last Assessment & Plan: She takes the lisinopril the statin and the ASA. Neck pain, chronic 02/22/2015 11/06/2016 Non-ST elevation myocardial infarction (NSTEMI), initial episode of care 08/04/2014 05/21/2018 Overview: -Pt transferred to [facility] for NSTEMI? In setting of EKG abnormality and elevated troponin I, thought to be primary ACS vs 2/2 to increase in cardiac demand in setting of sepsis -PT never had CP OSH w/u -EKG --T wave changes in lateral leads -Elevated troponin I, Ck MB WNL -ECHO/Doppler --> Segmental wall motion abnormalities, EF 50%, +2 MR & TR, RVSP 38, no shunt -CTA 07/26/2014 --> No PE, no aortic dissection, Diffuse pulmonary infiltrates, cardiomegaly with evidence of RSHF -Started on Heparin gtt RF: HTN, ex smoker, FH of CAD (father <60 years), Off statins for long time, till restarted in the OSH, denies DM Plan -Trend CE x3 -High intensity statins, Lipitor 80mg QD -Tight BP control -Will hold off heparin, given that the pt is CP free -ECHO -Depending on ECHO results will proceed with either NM stress test or LHC Last Assessment & Plan: PMR (polymyalgia rheumatica) 07/20/2013 Polymyositis 09/29/2011 05/21/2018 Elevated blood pressure 09/09/2011 12/02/19 14 Chronic pain 04/18/2011 11/06/2016 Last Assessment & Plan: Takes ultram for chronic pains, myalgias and joint pains. Takes 2 tabs qid. States this does help with her pains. Dysphagia 10/25/2010 12/01/2013 Hypokalemia 10/04/2010 12/01/2013 Left Plantar fasciitis 10/04/2010 4 Bipolar affective 04/27/2010 05/21/2018 Overview: Continue Diazepam 10mg BID CRI (chronic renal insufficiency) 09/30/2009 12/01/2013 ANEMIA BLOOD LOSS CHRONIC 12/23/20072013 documented as of this encounter (statuses as of 12/04/2021) [facility] History of Past illness Narrative* Problem Noted Date Resolved Date Chronic obstructive pulmonary disease 12/26/2015 03/15/2016 Coronary artery disease invo lving [place] coronary artery of [place] heart with angina pectoris 12/26/2015 06/07/2017 Atypical chest pain 12/26/2015 06/07/2017 Chronic right shoulder pain 07/14/2015 09/0 07/2016 SUMMARY 03/27/2015 10/25/2017 Overview: Leyda Lopez is a 54 year old female with COPD, asthma, sleep apnea, HTN, but no other previously known cardiac disease (echo 08/2014 showed normal LV function only mild MR and trivial TR with normal nuclear stress test) Now a transfer from [facility]SH for due to Echo findings of severe MR and LHC with lesion of the ramus intermediate. She has been transferred to [facility] due to moderate disease in the ramus intermedius. NSTEMI (non-ST elevated myocardial infarction) 0 03/25/2015 05/21/2018 Overview: ASA 81 Atorvastatin 40 Lisinopril 40 Last Assessment & Plan: She takes the lisinopril the statin and the ASA. Neck pain, chronic 02/22/2015 11/06/2016 Non-ST elevation myocardial infarction (NSTEMI), initial episode of care 08/04/2014 05/21/2018 Overview: -Pt transferred to [facility] for NSTEMI? In setting of EKG abnormality and elevated troponin I, thought to be primary ACS vs 2/2 to increase in cardiac demand in setting of sepsis -PT never had CP OSH w/u -EKG --T wave changes in lateral leads -Elevated troponin I, Ck MB WNL -ECHO/Doppler --> Segmental wall motion abnormalities, EF 50%, +2 MR & TR, RVSP 38, no shunt -CTA 07/26/2014 --> No PE, no aortic dissection, Diffuse pulmonary infiltrates, cardiomegaly with evidence of RSHF -Started on Heparin gtt RF: HTN, ex smoker, FH of CAD (father <60 years), Off statins for long time, till restarted in the OSH, denies DM Plan -Trend CE x3 -High intensity statins, Lipitor 80mg QD -Tight BP control -Will hold off heparin, given that the pt is CP free -ECHO -Depending on ECHO results will proceed with either NM stress test or C Last Assessment & Plan: PMR (polymyalgia rheumatica) 07/20/2013 Polymyositis 09/29/2011 05/21/2018 Elevated blood pressure 09/09/2011 12/02/19 14 Chronic pain 04/18/2011 11/06/2016 Last Assessment & Plan: Takes ultram for chronic pains, myalgias and joint pains. Takes 2 tabs qid. States this does help with her pains. Dysphagia 10/25/2010 12/01/2013 Hypokalemia 10/04/2010 12/01/2013 Left Plantar fasciitis 10/04/2010 4 Bipolar affective 04/27/2010 05/21/2018 Overview: Continue Diazepam 10mg BID CRI (chronic renal insufficiency) 09/30/2009 12/01/2013 ANEMIA BLOOD LOSS CHRONIC 12/23/20072013 documented as of this encounter (statuses as of 12/07/2021) [facility] History of Past illness Narrative* Problem Noted Date Resolved Date Chronic obstructive pulmonary disease 12/26/2015 03/15/2016 Coronary artery disease invo lving [place] coronary artery of [place] heart with angina pectoris 12/26/2015 06/07/2017 Atypical chest pain 12/26/2015 06/07/2017 Chronic right shoulder pain 07/14/2015 09/07/2016 SUMMARY 03/27/2015 10/25/2017 Overview: Leyda Lopez is a 54 year old female with COPD, asthma, sleep apnea, HTN, but no other previously known cardiac disease (echo 08/2014 showed normal LV function only mild MR and trivial TR with normal nuclear stress test) Now a transfer from OSH for due to Echo findings of severe MR and LHC with lesion of the ramus intermediate. She has been transferred to [facility] due to moderate disease in the ramus intermedius. NSTEMI (non-ST elevated myocardial infarction) 0 03/25/2015 05/21/2018 Overview: ASA 81 Atorvastatin 40 Lisinopril 40 Last Assessment & Plan: She takes the lisinopril the statin and the ASA. Neck pain, chronic 02/22/2015 11/06/2016 Non-ST elevation myocardial infarction (NSTEMI), initial episode of care 08/04/2014 05/21/2018 Overview: -Pt transferred to [facility] for NSTEMI? In setting of EKG abnormality and elevated troponin I, thought to be primary ACS vs 2/2 to increase in cardiac demand in setting of sepsis -PT never had CP OSH w/u -EKG --T wave changes in lateral leads -Elevated troponin I, Ck MB WNL -ECHO/Doppler --> Segmental wall motion abnormalities, EF 50%, +2 MR & TR, RVSP 38, no shunt -CTA 07/26/2014 --> No PE, no aortic dissection, Diffuse pulmonary infiltrates, cardiomegaly with evidence of RSHF -Started on Heparin gtt RF: HTN, ex smoker, FH of CAD (father <60 years), Off statins for long time, till restarted in the OSH, denies DM Plan -Trend CE x3 -High intensity statins, Lipitor 80mg QD -Tight BP control -Will hold off heparin, given that the pt is CP free -ECHO -Depending on ECHO results will proceed with either NM stress test or LHC Last Assessment & Plan: PMR (polymyalgia rheumatica) 07/20/2013 Polymyositis 09/29/2011 05/21/2018 Elevated blood pressure 09/09/2011 12/02/19 14 Chronic pain 04/18/2011 11/06/2016 Last Assessment & Plan: Takes ultram for chronic pains, myalgias and joint pains. Takes 2 tabs qid. States this does help with her pains. Dysphagia 10/25/2010 12/01/2013 Hypokalemia 10/04/2010 12/01/2013 Left Plantar fasciitis 10/04/2010 4 Bipolar affective 04/27/2010 05/21/2018 Overview: Continue Diazepam 10mg BID CRI (chronic renal insufficiency) 09/30/2009 12/01/2013 ANEMIA BLOOD LOSS CHRONIC 12/23/20072013 documented as of this encounter (statuses as of 12/15/2021) [facility] History of Past illness Narrative* Problem Noted Date Resolved Date Chronic obstructive pulmonary disease 12/26/2015 03/15/2016 Coronary artery disease invo lving [place] coronary artery of [place] heart with angina pectoris 12/26/2015 06/07/2017 Atypical chest pain 12/26/2015 06/07/2017 Chronic right shoulder pain 07/14/201507/2016 SUMMARY 03/27/2015 10/25/2017 Overview: Leyda Lopez is a 54 year old female with COPD, asthma, sleep apnea, HTN, but no other previously known cardiac disease (echo 08/2014 showed normal LV function only mild MR and trivial TR with normal nuclear stress test) Now a transfer from OSH for due to Echo findings of severe MR and LHC with lesion of the ramus intermediate. She has been transferred to [facility] due to moderate disease in the ramus intermedius. NSTEMI (non-ST elevated myocardial infarction) 0 03/25/2015 05/21/2018 Overview: ASA 81 Atorvastatin 40 Lisinopril 40 Last Assessment & Plan: She takes the lisinopril the statin and the ASA. Neck pain, chronic 02/22/2015 11/06/2016 Non-ST elevation myocardial infarction (NSTEMI), initial episode of care 08/04/2014 05/21/2018 Overview: -Pt transferred to [facility] for NSTEMI? In setting of EKG abnormality and elevated troponin I, thought to be primary ACS vs 2/2 to increase in cardiac demand in setting of sepsis -PT never had CP OSH w/u -EKG --T wave changes in lateral leads -Elevated troponin I, Ck MB WNL -ECHO/Doppler --> Segmental wall motion abnormalities, EF 50%, +2 MR & TR, RVSP 38, no shunt -CTA 07/26/2014 --> No PE, no aortic dissection, Diffuse pulmonary infiltrates, cardiomegaly with evidence of RSHF -Started on Heparin gtt RF: HTN, ex smoker, FH of CAD (father <60 years), Off statins for long time, till restarted in the OSH, denies DM Plan -Trend CE x3 -High intensity statins, Lipitor 80mg QD -Tight BP control -Will hold off heparin, given that the pt is CP free -ECHO -Depending on ECHO results will proceed with either NM stress test or LHC Last Assessment & Plan: PMR (polymyalgia rheumatica) 07/20/2013 Polymyositis 09/29/2011 05/21/2018 Elevated blood pressure 09/09/2011 12/02/19 14 Chronic pain 04/18/2011 11/06/2016 Last Assessment & Plan: Takes ultram for chronic pains, myalgias and joint pains. Takes 2 tabs qid. States this does help with her pains. Dysphagia 10/25/2010 12/01/2013 Hypokalemia 10/04/2010 12/01/2013 Left Plantar fasciitis 10/04/2010 4 Bipolar affective 04/27/2010 05/21/2018 Overview: Continue Diazepam 10mg BID CRI (chronic renal insufficiency) 09/30/2009 12/01/2013 ANEMIA BLOOD LOSS CHRONIC 12/23/20072013 documented as of this encounter (statuses as of 12/15/2021) [facility] History of Past illness Narrative* Problem Noted Date Resolved Date Chronic obstructive pulmonary disease 12/26/2015 03/15/2016 Coronary artery disease invo lving [place] coronary artery of [place] heart with angina pectoris 12/26/2015 06/07/2017 Atypical chest pain 12/26/2015 06/07/2017 Chronic right shoulder pain 07/14/201507/2016 SUMMARY 03/27/2015 10/25/2017 Overview: Leyda Lopez is a 54 year old female with COPD, asthma, sleep apnea, HTN, but no other previously known cardiac disease (echo 08/2014 showed normal LV function only mild MR and trivial TR with normal nuclear stress test) Now a transfer from OSH for due to Echo findings of severe MR and LHC with lesion of the ramus intermediate. She has been transferred to [facility] due to moderate disease in the ramus intermedius. NSTEMI (non-ST elevated myocardial infarction) 0 03/25/2015 05/21/2018 Overview: ASA 81 Atorvastatin 40 Lisinopril 40 Last Assessment & Plan: She takes the lisinopril the statin and the ASA. Neck pain, chronic 02/22/2015 11/06/2016 Non-ST elevation myocardial infarction (NSTEMI), initial episode of care 08/04/2014 05/21/2018 Overview: -Pt transferred to [facility] for NSTEMI? In setting of EKG abnormality and elevated troponin I, thought to be primary ACS vs 2/2 to increase in cardiac demand in setting of sepsis -PT never had CP OSH w/u -EKG --T wave changes in lateral leads -Elevated troponin I, Ck MB WNL -ECHO/Doppler --> Segmental wall motion abnormalities, EF 50%, +2 MR & TR, RVSP 38, no shunt -CTA 07/26/2014 --> No PE, no aortic dissection, Diffuse pulmonary infiltrates, cardiomegaly with evidence of RSHF -Started on Heparin gtt RF: HTN, ex smoker, FH of CAD (father <60 years), Off statins for long time, till restarted in the OSH, denies DM Plan -Trend CE x3 -High intensity statins, Lipitor 80mg QD -Tight BP control -Will hold off heparin, given that the pt is CP free -ECHO -Depending on ECHO results will proceed with either NM stress test or LHC Last Assessment & Plan: PMR (polymyalgia rheumatica) 07/20/2013 Polymyositis 09/29/2011 05/21/2018 Elevated blood pressure 09/09/2011 12/02/19 14 Chronic pain 04/18/2011 11/06/2016 Last Assessment & Plan: Takes ultram for chronic pains, myalgias and joint pains. Takes 2 tabs qid. States this does help with her pains. Dysphagia 10/25/2010 12/01/2013 Hypokalemia 10/04/2010 12/01/2013 Left Plantar fasciitis 10/04/2010 4 Bipolar affective 04/27/2010 05/21/2018 Overview: Continue Diazepam 10mg BID CRI (chronic renal insufficiency) 09/30/2009 12/01/2013 ANEMIA BLOOD LOSS CHRONIC 12/23/20072013 documented as of this encounter (statuses as of 12/19/2021) [facility] History of Past illness Narrative* Problem Noted Date Resolved Date Chronic obstructive pulmonary disease 12/26/2015 03/15/2016 Coronary artery disease invo lving [place] coronary artery of [place] heart with angina pectoris 12/26/2015 06/07/2017 Atypical chest pain 12/26/2015 06/07/2017 Chronic right shoulder pain 07/14/2015 09/0 07/2016 SUMMARY 03/27/2015 10/25/2017 Overview: Leyda Lopez is a 54 year old female with COPD, asthma, sleep apnea, HTN, but no other previously known cardiac disease (echo 08/2014 showed normal LV function only mild MR and trivial TR with normal nuclear stress test) Now a transfer from OSH for due to Echo findings of severe MR and LHC with lesion of the ramus intermediate. She has been transferred to [facility] due to moderate disease in the ramus intermedius. NSTEMI (non-ST elevated myocardial infarction) 0 03/25/2015 05/21/2018 Overview: ASA 81 Atorvastatin 40 Lisinopril 40 Last Assessment & Plan: She takes the lisinopril the statin and the ASA. Neck pain, chronic 02/22/2015 11/06/2016 Non-ST elevation myocardial infarction (NSTEMI), initial episode of care 08/04/2014 05/21/2018 Overview: -Pt transferred to [facility] for NSTEMI? In setting of EKG abnormality and elevated troponin I, thought to be primary ACS vs 2/2 to increase in cardiac demand in setting of sepsis -PT never had CP OSH w/u -EKG --T wave changes in lateral leads -Elevated troponin I, Ck MB WNL -ECHO/Doppler --> Segmental wall motion abnormalities, EF 50%, +2 MR & TR, RVSP 38, no shunt -CTA 07/26/2014 --> No PE, no aortic dissection, Diffuse pulmonary infiltrates, cardiomegaly with evidence of RSHF -Started on Heparin gtt RF: HTN, ex smoker, FH of CAD (father <60 years), Off statins for long time, till restarted in the OSH, denies DM Plan -Trend CE x3 -High intensity statins, Lipitor 80mg QD -Tight BP control -Will hold off heparin, given that the pt is CP free -ECHO -Depending on ECHO results will proceed with either NM stress test or LHC Last Assessment & Plan: PMR (polymyalgia rheumatica) 07/20/2013 Polymyositis 09/29/2011 05/21/2018 Elevated blood pressure 09/09/2011 12/02/19 14 Chronic pain 04/18/2011 11/06/2016 Last Assessment & Plan: Takes ultram for chronic pains, myalgias and joint pains. Takes 2 tabs qid. States this does help with her pains. Dysphagia 10/25/2010 12/01/2013 Hypokalemia 10/04/2010 12/01/2013 Left Plantar fasciitis 10/04/2010 4 Bipolar affective 04/27/2010 05/21/2018 Overview: Continue Diazepam 10mg BID CRI (chronic renal insufficiency) 09/30/2009 12/01/2013 ANEMIA BLOOD LOSS CHRONIC 12/23/20072013 documented as of this encounter (statuses as of 12/19/2021) [facility] History of Past illness Narrative* Problem Noted Date Resolved Date Chronic obstructive pulmonary disease 12/26/2015 03/15/2016 Coronary artery disease invo lving [place] coronary artery of [place] heart with angina pectoris 12/26/2015 06/07/2017 Atypical chest pain 12/26/2015 06/07/2017 Chronic right shoulder pain 07/14/2015 09/0 07/2016 SUMMARY 03/27/2015 10/25/2017 Overview: Leyda Lopez is a 54 year old female with COPD, asthma, sleep apnea, HTN, but no other previously known cardiac disease (echo 08/2014 showed normal LV function only mild MR and trivial TR with normal nuclear stress test) Now a transfer from OSH for due to Echo findings of severe MR and LHC with lesion of the ramus intermediate. She has been transferred to [facility] due to moderate disease in the ramus intermedius. NSTEMI (non-ST elevated myocardial infarction) 0 03/25/2015 05/21/2018 Overview: ASA 81 Atorvastatin 40 Lisinopril 40 Last Assessment & Plan: She takes the lisinopril the statin and the ASA. Neck pain, chronic 02/22/2015 11/06/2016 Non-ST elevation myocardial infarction (NSTEMI), initial episode of care 08/04/2014 05/21/2018 Overview: -Pt transferred to [facility] for NSTEMI? In setting of EKG abnormality and elevated troponin I, thought to be primary ACS vs 2/2 to increase in cardiac demand in setting of sepsis -PT never had CP OSH w/u -EKG --T wave changes in lateral leads -Elevated troponin I, Ck MB WNL -ECHO/Doppler --> Segmental wall motion abnormalities, EF 50%, +2 MR & TR, RVSP 38, no shunt -CTA 07/26/2014 --> No PE, no aortic dissection, Diffuse pulmonary infiltrates, cardiomegaly with evidence of RSHF -Started on Heparin gtt RF: HTN, ex smoker, FH of CAD (father <60 years), Off statins for long time, till restarted in the OSH, denies DM Plan -Trend CE x3 -High intensity statins, Lipitor 80mg QD -Tight BP control -Will hold off heparin, given that the pt is CP free -ECHO -Depending on ECHO results will proceed with either NM stress test or LHC Last Assessment & Plan: PMR (polymyalgia rheumatica) 07/20/2013 Polymyositis 09/29/2011 05/21/2018 Elevated blood pressure 09/09/2011 12/02/19 14 Chronic pain 04/18/2011 11/06/2016 Last Assessment & Plan: Takes ultram for chronic pains, myalgias and joint pains. Takes 2 tabs qid. States this does help with her pains. Dysphagia 10/25/2010 12/01/2013 Hypokalemia 10/04/2010 12/01/2013 Left Plantar fasciitis 10/04/2010 4 Bipolar affective 04/27/2010 05/21/2018 Overview: Continue Diazepam 10mg BID CRI (chronic renal insufficiency) 09/30/2009 12/01/2013 ANEMIA BLOOD LOSS CHRONIC 12/23/20072013 documented as of this encounter (statuses as of 12/21/2021) [facility] History of Past illness Narrative* Problem Noted Date Resolved Date Chronic obstructive pulmonary disease 12/26/2015 03/15/2016 Coronary artery disease invo lving [place] coronary artery of [place] heart with angina pectoris 12/26/2015 06/07/2017 Atypical chest pain 12/26/2015 06/07/2017 Chronic right shoulder pain 07/14/2015/07/2016 SUMMARY 03/27/2015 10/25/2017 Overview: Leyda Lopez is a 54 year old female with COPD, asthma, sleep apnea, HTN, but no other previously known cardiac disease (echo 08/2014 showed normal LV function only mild MR and trivial TR with normal nuclear stress test) Now a transfer from OSH for due to Echo findings of severe MR and LHC with lesion of the ramus intermediate. She has been transferred to [facility] due to moderate disease in the ramus intermedius. NSTEMI (non-ST elevated myocardial infarction) 0 03/25/2015 05/21/2018 Overview: ASA 81 Atorvastatin 40 Lisinopril 40 Last Assessment & Plan: She takes the lisinopril the statin and the ASA. Neck pain, chronic 02/22/2015 11/06/2016 Non-ST elevation myocardial infarction (NSTEMI), initial episode of care 08/04/2014 05/21/2018 Overview: -Pt transferred to [facility] for NSTEMI? In setting of EKG abnormality and elevated troponin I, thought to be primary ACS vs 2/2 to increase in cardiac demand in setting of sepsis -PT never had CP OSH w/u -EKG --T wave changes in lateral leads -Elevated troponin I, Ck MB WNL -ECHO/Doppler --> Segmental wall motion abnormalities, EF 50%, +2 MR & TR, RVSP 38, no shunt -CTA 07/26/2014 --> No PE, no aortic dissection, Diffuse pulmonary infiltrates, cardiomegaly with evidence of RSHF -Started on Heparin gtt RF: HTN, ex smoker, FH of CAD (father <60 years), Off statins for long time, till restarted in the OSH, denies DM Plan -Trend CE x3 -High intensity statins, Lipitor 80mg QD -Tight BP control -Will hold off heparin, given that the pt is CP free -ECHO -Depending on ECHO results will proceed with either NM stress test or LHC Last Assessment & Plan: PMR (polymyalgia rheumatica) 07/20/2013 Polymyositis 09/29/2011 05/21/2018 Elevated blood pressure 09/09/2011 12/02/19 14 Chronic pain 04/18/2011 11/06/2016 Last Assessment & Plan: Takes ultram for chronic pains, myalgias and joint pains. Takes 2 tabs qid. States this does help with her pains. Dysphagia 10/25/2010 12/01/2013 Hypokalemia 10/04/2010 12/01/2013 Left Plantar fasciitis 10/04/2010 4 Bipolar affective 04/27/2010 05/21/2018 Overview: Continue Diazepam 10mg BID CRI (chronic renal insufficiency) 09/30/2009 12/01/2013 ANEMIA BLOOD LOSS CHRONIC 12/23/20072013 documented as of this encounter (statuses as of 12/28/2021) [facility] History of Past illness Narrative* Problem Noted Date Resolved Date Chronic obstructive pulmonary disease 12/26/2015 03/15/2016 Coronary artery disease invo lving [place] coronary artery of [place] heart with angina pectoris 12/26/2015 06/07/2017 Atypical chest pain 12/26/2015 06/07/2017 Chronic right shoulder pain 07/14/2015 09/0 07/2016 SUMMARY 03/27/2015 10/25/2017 Overview: Leyda Lopez is a 54 year old female with COPD, asthma, sleep apnea, HTN, but no other previously known cardiac disease (echo 08/2014 showed normal LV function only mild MR and trivial TR with normal nuclear stress test) Now a transfer from [facility] for due to Echo findings of severe MR and LHC with lesion of the ramus intermediate. She has been transferred to [facility] due to moderate disease in the ramus intermedius. NSTEMI (non-ST elevated myocardial infarction) 0 03/25/2015 05/21/2018 Overview: ASA 81 Atorvastatin 40 Lisinopril 40 Last Assessment & Plan: She takes the lisinopril the statin and the ASA. Neck pain, chronic 02/22/2015 11/06/2016 Non-ST elevation myocardial infarction (NSTEMI), initial episode of care 08/04/2014 05/21/2018 Overview: -Pt transferred to [facility] for [facility]STEMI? In setting of EKG abnormality and elevated troponin I, thought to be primary ACS vs 2/2 to increase in cardiac demand in setting of sepsis -PT never had CP OSH w/u -EKG --T wave changes in lateral leads -Elevated troponin I, Ck MB WNL -ECHO/Doppler --> Segmental wall motion abnormalities, EF 50%, +2 MR & TR, RVSP 38, no shunt -CTA 07/26/2014 --> No PE, no aortic dissection, Diffuse pulmonary infiltrates, cardiomegaly with evidence of RSHF -Started on Heparin gtt RF: HTN, ex smoker, FH of CAD (father <60 years), Off statins for long time, till restarted in the OSH, denies DM Plan -Trend CE x3 -High intensity statins, Lipitor 80mg QD -Tight BP control -Will hold off heparin, given that the pt is CP free -ECHO -Depending on ECHO results will proceed with either NM stress test or LHC Last Assessment & Plan: PMR (polymyalgia rheumatica) 07/20/2013 Polymyositis 09/29/2011 05/21/2018 Elevated blood pressure 09/09/2011 12/02/19 14 Chronic pain 04/18/2011 11/06/2016 Last Assessment & Plan: Takes ultram for chronic pains, myalgias and joint pains. Takes 2 tabs qid. States this does help with her pains. Dysphagia 10/25/2010 12/01/2013 Hypokalemia 10/04/2010 12/01/2013 Left Plantar fasciitis 10/04/2010 4 Bipolar affective 04/27/2010 05/21/2018 Overview: Continue Diazepam 10mg BID CRI (chronic renal insufficiency) 09/30/2009 12/01/2013 ANEMIA BLOOD LOSS CHRONIC 12/23/20072013 documented as of this encounter (statuses as of 01/03/2022) [facility] History of Past illness Narrative* Problem Noted Date Resolved Date Chronic obstructive pulmonary disease 12/26/2015 03/15/2016 Coronary artery disease invo lving [place] coronary artery of [place] heart with angina pectoris 12/26/2015 06/07/2017 Atypical chest pain 12/26/2015 06/07/2017 Chronic right shoulder pain 07/14/201507/2016 SUMMARY 03/27/2015 10/25/2017 Overview: Leyda Lopez is a 54 year old female with COPD, asthma, sleep apnea, HTN, but no other previously known cardiac disease (echo 08/2014 showed normal LV function only mild MR and trivial TR with normal nuclear stress test) Now a transfer from [facility] for due to Echo findings of severe MR and LHC with lesion of the ramus intermediate. She has been transferred to [facility] due to moderate disease in the ramus intermedius. NSTEMI (non-ST elevated myocardial infarction) 0 03/25/2015 05/21/2018 Overview: ASA 81 Atorvastatin 40 Lisinopril 40 Last Assessment & Plan: She takes the lisinopril the statin and the ASA. Neck pain, chronic 02/22/2015 11/06/2016 Non-ST elevation myocardial infarction (NSTEMI), initial episode of care 08/04/2014 05/21/2018 Overview: -Pt transferred to [facility] for [facility]STEMI? In setting of EKG abnormality and elevated troponin I, thought to be primary ACS vs 2/2 to increase in cardiac demand in setting of sepsis -PT never had CP OSH w/u -EKG --T wave changes in lateral leads -Elevated troponin I, Ck MB WNL -ECHO/Doppler --> Segmental wall motion abnormalities, EF 50%, +2 MR & TR, RVSP 38, no shunt -CTA 07/26/2014 --> No PE, no aortic dissection, Diffuse pulmonary infiltrates, cardiomegaly with evidence of RSHF -Started on Heparin gtt RF: HTN, ex smoker, FH of CAD (father <60 years), Off statins for long time, till restarted in the OSH, denies DM Plan -Trend CE x3 -High intensity statins, Lipitor 80mg QD -Tight BP control -Will hold off heparin, given that the pt is CP free -ECHO -Depending on ECHO results will proceed with either NM stress test or LHC Last Assessment & Plan: PMR (polymyalgia rheumatica) 07/20/2013 Polymyositis 09/29/2011 05/21/2018 Elevated blood pressure 09/09/2011 12/02/19 14 Chronic pain 04/18/2011 11/06/2016 Last Assessment & Plan: Takes ultram for chronic pains, myalgias and joint pains. Takes 2 tabs qid. States this does help with her pains. Dysphagia 10/25/2010 12/01/2013 Hypokalemia 10/04/2010 12/01/2013 Left Plantar fasciitis 10/04/2010 4 Bipolar affective 04/27/2010 05/21/2018 Overview: Continue Diazepam 10mg BID CRI (chronic renal insufficiency) 09/30/2009 12/01/2013 ANEMIA BLOOD LOSS CHRONIC 12/23/20072013 documented as of this encounter (statuses as of 01/31/2022) [facility] History of Past illness Narrative* Problem Noted Date Resolved Date Chronic obstructive pulmonary disease 12/26/2015 03/15/2016 Coronary artery disease invo lving [place] coronary artery of [place] heart with angina pectoris 12/26/2015 06/07/2017 Atypical chest pain 12/26/2015 06/07/2017 Chronic right shoulder pain 07/14/2015 09/0 07/2016 SUMMARY 03/27/2015 10/25/2017 Overview: Leyda Lopez is a 54 year old female with COPD, asthma, sleep apnea, HTN, but no other previously known cardiac disease (echo 08/2014 showed normal LV function only mild MR and trivial TR with normal nuclear stress test) Now a transfer from [facility] for due to Echo findings of severe MR and LHC with lesion of the ramus intermediate. She has been transferred to [facility] due to moderate disease in the ramus intermedius. NSTEMI (non-ST elevated myocardial infarction) 0 03/25/2015 05/21/2018 Overview: ASA 81 Atorvastatin 40 Lisinopril 40 Last Assessment & Plan: She takes the lisinopril the statin and the ASA. Neck pain, chronic 02/22/2015 11/06/2016 Non-ST elevation myocardial infarction (NSTEMI), initial episode of care 08/04/2014 05/21/2018 Overview: -Pt transferred to [facility] for NSTEMI? In setting of EKG abnormality and elevated troponin I, thought to be primary ACS vs 2/2 to increase in cardiac demand in setting of sepsis -PT never had CP OSH w/u -EKG --T wave changes in lateral leads -Elevated troponin I, Ck MB WNL -ECHO/Doppler --> Segmental wall motion abnormalities, EF 50%, +2 MR & TR, RVSP 38, no shunt -CTA 07/26/2014 --> No PE, no aortic dissection, Diffuse pulmonary infiltrates, cardiomegaly with evidence of RSHF -Started on Heparin gtt RF: HTN, ex smoker, FH of CAD (father <60 years), Off statins for long time, till restarted in the OSH, denies DM Plan -Trend CE x3 -High intensity statins, Lipitor 80mg QD -Tight BP control -Will hold off heparin, given that the pt is CP free -ECHO -Depending on ECHO results will proceed with either NM stress test or LHC Last Assessment & Plan: PMR (polymyalgia rheumatica) 07/20/2013 Polymyositis 09/29/2011 05/21/2018 Elevated blood pressure 09/09/2011 12/02/19 14 Chronic pain 04/18/2011 11/06/2016 Last Assessment & Plan: Takes ultram for chronic pains, myalgias and joint pains. Takes 2 tabs qid. States this does help with her pains. Dysphagia 10/25/2010 12/01/2013 Hypokalemia 10/04/2010 12/01/2013 Left Plantar fasciitis 10/04/2010 4 Bipolar affective 04/27/2010 05/21/2018 Overview: Continue Diazepam 10mg BID CRI (chronic renal insufficiency) 09/30/2009 12/01/2013 ANEMIA BLOOD LOSS CHRONIC 12/23/20072013 documented as of this encounter (statuses as of 01/31/2022) [facility]2016 History of Past illness Narrative* Problem Noted Date Resolved Date Chronic obstructive pulmonary disease 12/26/2015 03/15/2016 Coronary artery disease invo lving [place] coronary artery of [place] heart with angina pectoris 12/26/2015 06/07/2017 Atypical chest pain 12/26/2015 06/07/2017 Chronic right shoulder pain 07/14/2015 09/0 07/2016 SUMMARY 03/27/2015 10/25/2017 Overview: Leyda Lopez is a 54 year old female with COPD, asthma, sleep apnea, HTN, but no other previously known cardiac disease (echo 08/2014 showed normal LV function only mild MR and trivial TR with normal nuclear stress test) Now a transfer from OSH for due to Echo findings of severe MR and LHC with lesion of the ramus intermediate. She has been transferred to [facility] due to moderate disease in the ramus intermedius. NSTEMI (non-ST elevated myocardial infarction) 0 03/25/2015 05/21/2018 Overview: ASA 81 Atorvastatin 40 Lisinopril 40 Last Assessment & Plan: She takes the lisinopril the statin and the ASA. Neck pain, chronic 02/22/2015 11/06/2016 Non-ST elevation myocardial infarction (NSTEMI), initial episode of care 08/04/2014 05/21/2018 Overview: -Pt transferred to [facility] for NSTEMI? In setting of EKG abnormality and elevated troponin I, thought to be primary ACS vs 2/2 to increase in cardiac demand in setting of sepsis -PT never had CP OSH w/u -EKG --T wave changes in lateral leads -Elevated troponin I, Ck MB WNL -ECHO/Doppler --> Segmental wall motion abnormalities, EF 50%, +2 MR & TR, RVSP 38, no shunt -CTA 07/26/2014 --> No PE, no aortic dissection, Diffuse pulmonary infiltrates, cardiomegaly with evidence of RSHF -Started on Heparin gtt RF: HTN, ex smoker, FH of CAD (father <60 years), Off statins for long time, till restarted in the OSH, denies DM Plan -Trend CE x3 -High intensity statins, Lipitor 80mg QD -Tight BP control -Will hold off heparin, given that the pt is CP free -ECHO -Depending on ECHO results will proceed with either NM stress test or LHC Last Assessment & Plan: PMR (polymyalgia rheumatica) 07/20/2013 Polymyositis 09/29/2011 05/21/2018 Elevated blood pressure 09/09/2011 12/02/19 14 Chronic pain 04/18/2011 11/06/2016 Last Assessment & Plan: Takes ultram for chronic pains, myalgias and joint pains. Takes 2 tabs qid. States this does help with her pains. Dysphagia 10/25/2010 12/01/2013 Hypokalemia 10/04/2010 12/01/2013 Left Plantar fasciitis 10/04/2010 4 Bipolar affective 04/27/2010 05/21/2018 Overview: Continue Diazepam 10mg BID CRI (chronic renal insufficiency) 09/30/2009 12/01/2013 ANEMIA BLOOD LOSS CHRONIC 12/23/20072013 documented as of this encounter (statuses as of 02/01/2022) [facility] History of Past illness Narrative* Problem Noted Date Resolved Date Chronic obstructive pulmonary disease 12/26/2015 03/15/2016 Coronary artery disease invo lving [place] coronary artery of [place] heart with angina pectoris 12/26/2015 06/07/2017 Atypical chest pain 12/26/2015 06/07/2017 Chronic right shoulder pain 07/14/201507/2016 SUMMARY 03/27/2015 10/25/2017 Overview: Leyda Lopez is a 54 year old female with COPD, asthma, sleep apnea, HTN, but no other previously known cardiac disease (echo 08/2014 showed normal LV function only mild MR and trivial TR with normal nuclear stress test) Now a transfer from OSH for due to Echo findings of severe MR and LHC with lesion of the ramus intermediate. She has been transferred to [facility] due to moderate disease in the ramus intermedius. NSTEMI (non-ST elevated myocardial infarction) 0 03/25/2015 05/21/2018 Overview: ASA 81 Atorvastatin 40 Lisinopril 40 Last Assessment & Plan: She takes the lisinopril the statin and the ASA. Neck pain, chronic 02/22/2015 11/06/2016 Non-ST elevation myocardial infarction (NSTEMI), initial episode of care 08/04/2014 05/21/2018 Overview: -Pt transferred to [facility] for NSTEMI? In setting of EKG abnormality and elevated troponin I, thought to be primary ACS vs 2/2 to increase in cardiac demand in setting of sepsis -PT never had CP OSH w/u -EKG --T wave changes in lateral leads -Elevated troponin I, Ck MB WNL -ECHO/Doppler --> Segmental wall motion abnormalities, EF 50%, +2 MR & TR, RVSP 38, no shunt -CTA 07/26/2014 --> No PE, no aortic dissection, Diffuse pulmonary infiltrates, cardiomegaly with evidence of RSHF -Started on Heparin gtt RF: HTN, ex smoker, FH of CAD (father <60 years), Off statins for long time, till restarted in the OSH, denies DM Plan -Trend CE x3 -High intensity statins, Lipitor 80mg QD -Tight BP control -Will hold off heparin, given that the pt is CP free -ECHO -Depending on ECHO results will proceed with either NM stress test or LHC Last Assessment & Plan: PMR (polymyalgia rheumatica) 07/20/2013 Polymyositis 09/29/2011 05/21/2018 Elevated blood pressure 09/09/2011 12/02/19 14 Chronic pain 04/18/2011 11/06/2016 Last Assessment & Plan: Takes ultram for chronic pains, myalgias and joint pains. Takes 2 tabs qid. States this does help with her pains. Dysphagia 10/25/2010 12/01/2013 Hypokalemia 10/04/2010 12/01/2013 Left Plantar fasciitis 10/04/2010 4 Bipolar affective 04/27/2010 05/21/2018 Overview: Continue Diazepam 10mg BID CRI (chronic renal insufficiency) 09/30/2009 12/01/2013 ANEMIA BLOOD LOSS CHRONIC 12/23/20072013 documented as of this encounter (statuses as of 02/02/2022) [facility] History of Past illness Narrative* Problem Noted Date Resolved Date Chronic obstructive pulmonary disease 12/26/2015 03/15/2016 Coronary artery disease invo lving [place] coronary artery of [place] heart with angina pectoris 12/26/2015 06/07/2017 Atypical chest pain 12/26/2015 06/07/2017 Chronic right shoulder pain 07/14/2015 09/0 07/2016 SUMMARY 03/27/2015 10/25/2017 Overview: Leydarohan Lopez is a 54 year old female with COPD, asthma, sleep apnea, HTN, but no other previously known cardiac disease (echo 08/2014 showed normal LV function only mild MR and trivial TR with normal nuclear stress test) Now a transfer from OSH for due to Echo findings of severe MR and LHC with lesion of the ramus intermediate. She has been transferred to [facility] due to moderate disease in the ramus intermedius. NSTEMI (non-ST elevated myocardial infarction) 0 03/25/2015 05/21/2018 Overview: ASA 81 Atorvastatin 40 Lisinopril 40 Last Assessment & Plan: She takes the lisinopril the statin and the ASA. Neck pain, chronic 02/22/2015 11/06/2016 Non-ST elevation myocardial infarction (NSTEMI), initial episode of care 08/04/2014 05/21/2018 Overview: -Pt transferred to [facility] for NSTEMI? In setting of EKG abnormality and elevated troponin I, thought to be primary ACS vs 2/2 to increase in cardiac demand in setting of sepsis -PT never had CP OSH w/u -EKG --T wave changes in lateral leads -Elevated troponin I, Ck MB WNL -ECHO/Doppler --> Segmental wall motion abnormalities, EF 50%, +2 MR & TR, RVSP 38, no shunt -CTA 07/26/2014 --> No PE, no aortic dissection, Diffuse pulmonary infiltrates, cardiomegaly with evidence of RSHF -Started on Heparin gtt RF: HTN, ex smoker, FH of CAD (father <60 years), Off statins for long time, till restarted in the OSH, denies DM Plan -Trend CE x3 -High intensity statins, Lipitor 80mg QD -Tight BP control -Will hold off heparin, given that the pt is CP free -ECHO -Depending on ECHO results will proceed with either NM stress test or LHC Last Assessment & Plan: PMR (polymyalgia rheumatica) 07/20/2013 Polymyositis 09/29/2011 05/21/2018 Elevated blood pressure 09/09/2011 12/02/19 14 Chronic pain 04/18/2011 11/06/2016 Last Assessment & Plan: Takes ultram for chronic pains, myalgias and joint pains. Takes 2 tabs qid. States this does help with her pains. Dysphagia 10/25/2010 12/01/2013 Hypokalemia 10/04/2010 12/01/2013 Left Plantar fasciitis 10/04/2010 4 Bipolar affective 04/27/2010 05/21/2018 Overview: Continue Diazepam 10mg BID CRI (chronic renal insufficiency) 09/30/2009 12/01/2013 ANEMIA BLOOD LOSS CHRONIC 12/23/20072013 documented as of this encounter (statuses as of 02/06/2022) [facility] History of Past illness Narrative* Problem Noted Date Resolved Date Chronic obstructive pulmonary disease 12/26/2015 03/15/2016 Coronary artery disease invo lving [place] coronary artery of [place] heart with angina pectoris 12/26/2015 06/07/2017 Atypical chest pain 12/26/2015 06/07/2017 Chronic right shoulder pain 07/14/2015 09/0 07/2016 SUMMARY 03/27/2015 10/25/2017 Overview: Leyda Lopez is a 54 year old female with COPD, asthma, sleep apnea, HTN, but no other previously known cardiac disease (echo 08/2014 showed normal LV function only mild MR and trivial TR with normal nuclear stress test) Now a transfer from OSH for due to Echo findings of severe MR and LHC with lesion of the ramus intermediate. She has been transferred to [facility] due to moderate disease in the ramus intermedius. NSTEMI (non-ST elevated myocardial infarction) 0 03/25/2015 05/21/2018 Overview: ASA 81 Atorvastatin 40 Lisinopril 40 Last Assessment & Plan: She takes the lisinopril the statin and the ASA. Neck pain, chronic 02/22/2015 11/06/2016 Non-ST elevation myocardial infarction (NSTEMI), initial episode of care 08/04/2014 05/21/2018 Overview: -Pt transferred to [facility] for NSTEMI? In setting of EKG abnormality and elevated troponin I, thought to be primary ACS vs 2/2 to increase in cardiac demand in setting of sepsis -PT never had CP OSH w/u -EKG --T wave changes in lateral leads -Elevated troponin I, Ck MB WNL -ECHO/Doppler --> Segmental wall motion abnormalities, EF 50%, +2 MR & TR, RVSP 38, no shunt -CTA 07/26/2014 --> No PE, no aortic dissection, Diffuse pulmonary infiltrates, cardiomegaly with evidence of RSHF -Started on Heparin gtt RF: HTN, ex smoker, FH of CAD (father <60 years), Off statins for long time, till restarted in the OSH, denies DM Plan -Trend CE x3 -High intensity statins, Lipitor 80mg QD -Tight BP control -Will hold off heparin, given that the pt is CP free -ECHO -Depending on ECHO results will proceed with either NM stress test or LHC Last Assessment & Plan: PMR (polymyalgia rheumatica) 07/20/2013 Polymyositis 09/29/2011 05/21/2018 Elevated blood pressure 09/09/2011 12/02/19 14 Chronic pain 04/18/2011 11/06/2016 Last Assessment & Plan: Takes ultram for chronic pains, myalgias and joint pains. Takes 2 tabs qid. States this does help with her pains. Dysphagia 10/25/2010 12/01/2013 Hypokalemia 10/04/2010 12/01/2013 Left Plantar fasciitis 10/04/2010 4 Bipolar affective 04/27/2010 05/21/2018 Overview: Continue Diazepam 10mg BID CRI (chronic renal insufficiency) 09/30/2009 12/01/2013 ANEMIA BLOOD LOSS CHRONIC 12/23/20072013 documented as of this encounter (statuses as of 02/13/2022) [facility] History of Past illness Narrative* Problem Noted Date Resolved Date Chronic obstructive pulmonary disease 12/26/2015 03/15/2016 Coronary artery disease invo lving [place] coronary artery of [place] heart with angina pectoris 12/26/2015 06/07/2017 Atypical chest pain 12/26/2015 06/07/2017 Chronic right shoulder pain 07/14/2015 09/0 07/2016 SUMMARY 03/27/2015 10/25/2017 Overview: Leyda Lopez is a 54 year old female with COPD, asthma, sleep apnea, HTN, but no other previously known cardiac disease (echo 08/2014 showed normal LV function only mild MR and trivial TR with normal nuclear stress test) Now a transfer from OSH for due to Echo findings of severe MR and LHC with lesion of the ramus intermediate. She has been transferred to [facility] due to moderate disease in the ramus intermedius. NSTEMI (non-ST elevated myocardial infarction) 0 03/25/2015 05/21/2018 Overview: ASA 81 Atorvastatin 40 Lisinopril 40 Last Assessment & Plan: She takes the lisinopril the statin and the ASA. Neck pain, chronic 02/22/2015 11/06/2016 Non-ST elevation myocardial infarction (NSTEMI), initial episode of care 08/04/2014 05/21/2018 Overview: -Pt transferred to [facility] for NSTEMI? In setting of EKG abnormality and elevated troponin I, thought to be primary ACS vs 2/2 to increase in cardiac demand in setting of sepsis -PT never had CP OSH w/u -EKG --T wave changes in lateral leads -Elevated troponin I, Ck MB WNL -ECHO/Doppler --> Segmental wall motion abnormalities, EF 50%, +2 MR & TR, RVSP 38, no shunt -CTA 07/26/2014 --> No PE, no aortic dissection, Diffuse pulmonary infiltrates, cardiomegaly with evidence of RSHF -Started on Heparin gtt RF: HTN, ex smoker, FH of CAD (father <60 years), Off statins for long time, till restarted in the OSH, denies DM Plan -Trend CE x3 -High intensity statins, Lipitor 80mg QD -Tight BP control -Will hold off heparin, given that the pt is CP free -ECHO -Depending on ECHO results will proceed with either NM stress test or LHC Last Assessment & Plan: PMR (polymyalgia rheumatica) 07/20/2013 Polymyositis 09/29/2011 05/21/2018 Elevated blood pressure 09/09/2011 12/02/19 14 Chronic pain 04/18/2011 11/06/2016 Last Assessment & Plan: Takes ultram for chronic pains, myalgias and joint pains. Takes 2 tabs qid. States this does help with her pains. Dysphagia 10/25/2010 12/01/2013 Hypokalemia 10/04/2010 12/01/2013 Left Plantar fasciitis 10/04/2010 4 Bipolar affective 04/27/2010 05/21/2018 Overview: Continue Diazepam 10mg BID CRI (chronic renal insufficiency) 09/30/2009 12/01/2013 ANEMIA BLOOD LOSS CHRONIC 12/23/20072013 documented as of this encounter (statuses as of 02/19/2022) [facility] History of Past illness Narrative* Problem Noted Date Resolved Date Chronic obstructive pulmonary disease 12/26/2015 03/15/2016 Coronary artery disease invo lving [place] coronary artery of [place] heart with angina pectoris 12/26/2015 06/07/2017 Atypical chest pain 12/26/2015 06/07/2017 Chronic right shoulder pain 07/14/2015 09/0 07/2016 SUMMARY 03/27/2015 10/25/2017 Overview: Leyda Lopez is a 54 year old female with COPD, asthma, sleep apnea, HTN, but no other previously known cardiac disease (echo 08/2014 showed normal LV function only mild MR and trivial TR with normal nuclear stress test) Now a transfer from OSH for due to Echo findings of severe MR and LHC with lesion of the ramus intermediate. She has been transferred to [facility] due to moderate disease in the ramus intermedius. NSTEMI (non-ST elevated myocardial infarction) 0 03/25/2015 05/21/2018 Overview: ASA 81 Atorvastatin 40 Lisinopril 40 Last Assessment & Plan: She takes the lisinopril the statin and the ASA. Neck pain, chronic 02/22/2015 11/06/2016 Non-ST elevation myocardial infarction (NSTEMI), initial episode of care 08/04/2014 05/21/2018 Overview: -Pt transferred to [facility] for NSTEMI? In setting of EKG abnormality and elevated troponin I, thought to be primary ACS vs 2/2 to increase in cardiac demand in setting of sepsis -PT never had CP OSH w/u -EKG --T wave changes in lateral leads -Elevated troponin I, Ck MB WNL -ECHO/Doppler --> Segmental wall motion abnormalities, EF 50%, +2 MR & TR, RVSP 38, no shunt -CTA 07/26/2014 --> No PE, no aortic dissection, Diffuse pulmonary infiltrates, cardiomegaly with evidence of RSHF -Started on Heparin gtt RF: HTN, ex smoker, FH of CAD (father <60 years), Off statins for long time, till restarted in the OSH, denies DM Plan -Trend CE x3 -High intensity statins, Lipitor 80mg QD -Tight BP control -Will hold off heparin, given that the pt is CP free -ECHO -Depending on ECHO results will proceed with either NM stress test or LHC Last Assessment & Plan: PMR (polymyalgia rheumatica) 07/20/2013 Polymyositis 09/29/2011 05/21/2018 Elevated blood pressure 09/09/2011 12/02/19 14 Chronic pain 04/18/2011 11/06/2016 Last Assessment & Plan: Takes ultram for chronic pains, myalgias and joint pains. Takes 2 tabs qid. States this does help with her pains. Dysphagia 10/25/2010 12/01/2013 Hypokalemia 10/04/2010 12/01/2013 Left Plantar fasciitis 10/04/2010 4 Bipolar affective 04/27/2010 05/21/2018 Overview: Continue Diazepam 10mg BID CRI (chronic renal insufficiency) 09/30/2009 12/01/2013 ANEMIA BLOOD LOSS CHRONIC 12/23/20072013 documented as of this encounter (statuses as of 02/23/2022) [facility] History of Past illness Narrative* Problem Noted Date Resolved Date Chronic obstructive pulmonary disease 12/26/2015 03/15/2016 Coronary artery disease invo lving [place] coronary artery of [place] heart with angina pectoris 12/26/2015 06/07/2017 Atypical chest pain 12/26/2015 06/07/2017 Chronic right shoulder pain 07/14/2015/07/2016 SUMMARY 03/27/2015 10/25/2017 Overview: Leyda Lopez is a 54 year old female with COPD, asthma, sleep apnea, HTN, but no other previously known cardiac disease (echo 08/2014 showed normal LV function only mild MR and trivial TR with normal nuclear stress test) Now a transfer from OSH for due to Echo findings of severe MR and LHC with lesion of the ramus intermediate. She has been transferred to [facility] due to moderate disease in the ramus intermedius. NSTEMI (non-ST elevated myocardial infarction) 0 03/25/2015 05/21/2018 Overview: ASA 81 Atorvastatin 40 Lisinopril 40 Last Assessment & Plan: She takes the lisinopril the statin and the ASA. Neck pain, chronic 02/22/2015 11/06/2016 Non-ST elevation myocardial infarction (NSTEMI), initial episode of care 08/04/2014 05/21/2018 Overview: -Pt transferred to [facility] for NSTEMI? In setting of EKG abnormality and elevated troponin I, thought to be primary ACS vs 2/2 to increase in cardiac demand in setting of sepsis -PT never had CP OSH w/u -EKG --T wave changes in lateral leads -Elevated troponin I, Ck MB WNL -ECHO/Doppler --> Segmental wall motion abnormalities, EF 50%, +2 MR & TR, RVSP 38, no shunt -CTA 07/26/2014 --> No PE, no aortic dissection, Diffuse pulmonary infiltrates, cardiomegaly with evidence of RSHF -Started on Heparin gtt RF: HTN, ex smoker, FH of CAD (father <60 years), Off statins for long time, till restarted in the OSH, denies DM Plan -Trend CE x3 -High intensity statins, Lipitor 80mg QD -Tight BP control -Will hold off heparin, given that the pt is CP free -ECHO -Depending on ECHO results will proceed with either NM stress test or LHC Last Assessment & Plan: PMR (polymyalgia rheumatica) 07/20/2013 Polymyositis 09/29/2011 05/21/2018 Elevated blood pressure 09/09/2011 12/02/19 14 Chronic pain 04/18/2011 11/06/2016 Last Assessment & Plan: Takes ultram for chronic pains, myalgias and joint pains. Takes 2 tabs qid. States this does help with her pains. Dysphagia 10/25/2010 12/01/2013 Hypokalemia 10/04/2010 12/01/2013 Left Plantar fasciitis 10/04/2010 4 Bipolar affective 04/27/2010 05/21/2018 Overview: Continue Diazepam 10mg BID CRI (chronic renal insufficiency) 09/30/2009 12/01/2013 ANEMIA BLOOD LOSS CHRONIC 12/23/20072013 documented as of this encounter (statuses as of 03/08/2022) [facility] History of Past illness Narrative* Problem Noted Date Resolved Date Chronic obstructive pulmonary disease 12/26/2015 03/15/2016 Coronary artery disease invo lving [place] coronary artery of [place] heart with angina pectoris 12/26/2015 06/07/2017 Atypical chest pain 12/26/2015 06/07/2017 Chronic right shoulder pain 07/14/2015 09/0 07/2016 SUMMARY 03/27/2015 10/25/2017 Overview: Leyda David John is a 54 year old female with COPD, asthma, sleep apnea, HTN, but no other previously known cardiac disease (echo 08/2014 showed normal LV function only mild MR and trivial TR with normal nuclear stress test) Now a transfer from [facility]SH for due to Echo findings of severe MR and LHC with lesion of the ramus intermediate. She has been transferred to [facility] due to moderate disease in the ramus intermedius. NSTEMI (non-ST elevated myocardial infarction) 0 03/25/2015 05/21/2018 Overview: ASA 81 Atorvastatin 40 Lisinopril 40 Last Assessment & Plan: She takes the lisinopril the statin and the ASA. Neck pain, chronic 02/22/2015 11/06/2016 Non-ST elevation myocardial infarction (NSTEMI), initial episode of care 08/04/2014 05/21/2018 Overview: -Pt transferred to [facility] for NSTEMI? In setting of EKG abnormality and elevated troponin I, thought to be primary ACS vs 2/2 to increase in cardiac demand in setting of sepsis -PT never had CP OSH w/u -EKG --T wave changes in lateral leads -Elevated troponin I, Ck MB WNL -ECHO/Doppler --> Segmental wall motion abnormalities, EF 50%, +2 MR & TR, RVSP 38, no shunt -CTA 07/26/2014 --> No PE, no aortic dissection, Diffuse pulmonary infiltrates, cardiomegaly with evidence of RSHF -Started on Heparin gtt RF: HTN, ex smoker, FH of CAD (father <60 years), Off statins for long time, till restarted in the OSH, denies DM Plan -Trend CE x3 -High intensity statins, Lipitor 80mg QD -Tight BP control -Will hold off heparin, given that the pt is CP free -ECHO -Depending on ECHO results will proceed with either NM stress test or LHC Last Assessment & Plan: PMR (polymyalgia rheumatica) 07/20/2013 Polymyositis 09/29/2011 05/21/2018 Elevated blood pressure 09/09/2011 12/02/19 14 Chronic pain 04/18/2011 11/06/2016 Last Assessment & Plan: Takes ultram for chronic pains, myalgias and joint pains. Takes 2 tabs qid. States this does help with her pains. Dysphagia 10/25/2010 12/01/2013 Hypokalemia 10/04/2010 12/01/2013 Left Plantar fasciitis 10/04/2010 4 Bipolar affective 04/27/2010 05/21/2018 Overview: Continue Diazepam 10mg BID CRI (chronic renal insufficiency) 09/30/2009 12/01/2013 ANEMIA BLOOD LOSS CHRONIC 12/23/20072013 documented as of this encounter (statuses as of 03/13/2022) [facility] History of Past illness Narrative* Problem Noted Date Resolved Date Chronic obstructive pulmonary disease 12/26/2015 03/15/2016 Coronary artery disease invo lving [place] coronary artery of [place] heart with angina pectoris 12/26/2015 06/07/2017 Atypical chest pain 12/26/2015 06/07/2017 Chronic right shoulder pain 07/14/2015 09/0 07/2016 SUMMARY 03/27/2015 10/25/2017 Overview: Leyda Lopez is a 54 year old female with COPD, asthma, sleep apnea, HTN, but no other previously known cardiac disease (echo 08/2014 showed normal LV function only mild MR and trivial TR with normal nuclear stress test) Now a transfer from [facility] for due to Echo findings of severe MR and LHC with lesion of the ramus intermediate. She has been transferred to [facility] due to moderate disease in the ramus intermedius. NSTEMI (non-ST elevated myocardial infarction) 0 03/25/2015 05/21/2018 Overview: ASA 81 Atorvastatin 40 Lisinopril 40 Last Assessment & Plan: She takes the lisinopril the statin and the ASA. Neck pain, chronic 02/22/2015 11/06/2016 Non-ST elevation myocardial infarction (NSTEMI), initial episode of care 08/04/2014 05/21/2018 Overview: -Pt transferred to [facility] for NSTEMI? In setting of EKG abnormality and elevated troponin I, thought to be primary ACS vs 2/2 to increase in cardiac demand in setting of sepsis -PT never had CP OSH w/u -EKG --T wave changes in lateral leads -Elevated troponin I, Ck MB WNL -ECHO/Doppler --> Segmental wall motion abnormalities, EF 50%, +2 MR & TR, RVSP 38, no shunt -CTA 07/26/2014 --> No PE, no aortic dissection, Diffuse pulmonary infiltrates, cardiomegaly with evidence of RSHF -Started on Heparin gtt RF: HTN, ex smoker, FH of CAD (father <60 years), Off statins for long time, till restarted in the OSH, denies DM Plan -Trend CE x3 -High intensity statins, Lipitor 80mg QD -Tight BP control -Will hold off heparin, given that the pt is CP free -ECHO -Depending on ECHO results will proceed with either NM stress test or LHC Last Assessment & Plan: PMR (polymyalgia rheumatica) 07/20/2013 Polymyositis 09/29/2011 05/21/2018 Elevated blood pressure 09/09/2011 12/02/19 14 Chronic pain 04/18/2011 11/06/2016 Last Assessment & Plan: Takes ultram for chronic pains, myalgias and joint pains. Takes 2 tabs qid. States this does help with her pains. Dysphagia 10/25/2010 12/01/2013 Hypokalemia 10/04/2010 12/01/2013 Left Plantar fasciitis 10/04/2010 4 Bipolar affective 04/27/2010 05/21/2018 Overview: Continue Diazepam 10mg BID CRI (chronic renal insufficiency) 09/30/2009 12/01/2013 ANEMIA BLOOD LOSS CHRONIC 12/23/20072013 documented as of this encounter (statuses as of 03/13/2022) [facility] History of Past illness Narrative* Problem Noted Date Resolved Date Chronic obstructive pulmonary disease 12/26/2015 03/15/2016 Coronary artery disease invo lving [place] coronary artery of [place] heart with angina pectoris 12/26/2015 06/07/2017 Atypical chest pain 12/26/2015 06/07/2017 Chronic right shoulder pain 07/14/2015 09/0 07/2016 SUMMARY 03/27/2015 10/25/2017 Overview: Leyda Lopez is a 54 year old female with COPD, asthma, sleep apnea, HTN, but no other previously known cardiac disease (echo 08/2014 showed normal LV function only mild MR and trivial TR with normal nuclear stress test) Now a transfer from OSH for due to Echo findings of severe MR and LHC with lesion of the ramus intermediate. She has been transferred to [facility] due to moderate disease in the ramus intermedius. NSTEMI (non-ST elevated myocardial infarction) 0 03/25/2015 05/21/2018 Overview: ASA 81 Atorvastatin 40 Lisinopril 40 Last Assessment & Plan: She takes the lisinopril the statin and the ASA. Neck pain, chronic 02/22/2015 11/06/2016 Non-ST elevation myocardial infarction (NSTEMI), initial episode of care 08/04/2014 05/21/2018 Overview: -Pt transferred to [facility] for NSTEMI? In setting of EKG abnormality and elevated troponin I, thought to be primary ACS vs 2/2 to increase in cardiac demand in setting of sepsis -PT never had CP OSH w/u -EKG --T wave changes in lateral leads -Elevated troponin I, Ck MB WNL -ECHO/Doppler --> Segmental wall motion abnormalities, EF 50%, +2 MR & TR, RVSP 38, no shunt -CTA 07/26/2014 --> No PE, no aortic dissection, Diffuse pulmonary infiltrates, cardiomegaly with evidence of RSHF -Started on Heparin gtt RF: HTN, ex smoker, FH of CAD (father <60 years), Off statins for long time, till restarted in the OSH, denies DM Plan -Trend CE x3 -High intensity statins, Lipitor 80mg QD -Tight BP control -Will hold off heparin, given that the pt is CP free -ECHO -Depending on ECHO results will proceed with either NM stress test or LHC Last Assessment & Plan: PMR (polymyalgia rheumatica) 07/20/2013 Polymyositis 09/29/2011 05/21/2018 Elevated blood pressure 09/09/2011 12/02/19 14 Chronic pain 04/18/2011 11/06/2016 Last Assessment & Plan: Takes ultram for chronic pains, myalgias and joint pains. Takes 2 tabs qid. States this does help with her pains. Dysphagia 10/25/2010 12/01/2013 Hypokalemia 10/04/2010 12/01/2013 Left Plantar fasciitis 10/04/2010 4 Bipolar affective 04/27/2010 05/21/2018 Overview: Continue Diazepam 10mg BID CRI (chronic renal insufficiency) 09/30/2009 12/01/2013 ANEMIA BLOOD LOSS CHRONIC 12/23/20072013 documented as of this encounter (statuses as of 03/19/2022) [facility] History of Past illness Narrative* Problem Noted Date Resolved Date Chronic obstructive pulmonary disease 12/26/2015 03/15/2016 Coronary artery disease invo lving [place] coronary artery of [place] heart with angina pectoris 12/26/2015 06/07/2017 Atypical chest pain 12/26/2015 06/07/2017 Chronic right shoulder pain 07/14/2015 09/0 07/2016 SUMMARY 03/27/2015 10/25/2017 Overview: Leyda Lopez is a 54 year old female with COPD, asthma, sleep apnea, HTN, but no other previously known cardiac disease (echo 08/2014 showed normal LV function only mild MR and trivial TR with normal nuclear stress test) Now a transfer from OSH for due to Echo findings of severe MR and LHC with lesion of the ramus intermediate. She has been transferred to [facility] due to moderate disease in the ramus intermedius. NSTEMI (non-ST elevated myocardial infarction) 0 03/25/2015 05/21/2018 Overview: ASA 81 Atorvastatin 40 Lisinopril 40 Last Assessment & Plan: She takes the lisinopril the statin and the ASA. Neck pain, chronic 02/22/2015 11/06/2016 Non-ST elevation myocardial infarction (NSTEMI), initial episode of care 08/04/2014 05/21/2018 Overview: -Pt transferred to [facility] for NSTEMI? In setting of EKG abnormality and elevated troponin I, thought to be primary ACS vs 2/2 to increase in cardiac demand in setting of sepsis -PT never had CP OSH w/u -EKG --T wave changes in lateral leads -Elevated troponin I, Ck MB WNL -ECHO/Doppler --> Segmental wall motion abnormalities, EF 50%, +2 MR & TR, RVSP 38, no shunt -CTA 07/26/2014 --> No PE, no aortic dissection, Diffuse pulmonary infiltrates, cardiomegaly with evidence of RSHF -Started on Heparin gtt RF: HTN, ex smoker, FH of CAD (father <60 years), Off statins for long time, till restarted in the OSH, denies DM Plan -Trend CE x3 -High intensity statins, Lipitor 80mg QD -Tight BP control -Will hold off heparin, given that the pt is CP free -ECHO -Depending on ECHO results will proceed with either NM stress test or LHC Last Assessment & Plan: PMR (polymyalgia rheumatica) 07/20/2013 Polymyositis 09/29/2011 05/21/2018 Elevated blood pressure 09/09/2011 12/02/19 14 Chronic pain 04/18/2011 11/06/2016 Last Assessment & Plan: Takes ultram for chronic pains, myalgias and joint pains. Takes 2 tabs qid. States this does help with her pains. Dysphagia 10/25/2010 12/01/2013 Hypokalemia 10/04/2010 12/01/2013 Left Plantar fasciitis 10/04/2010 4 Bipolar affective 04/27/2010 05/21/2018 Overview: Continue Diazepam 10mg BID CRI (chronic renal insufficiency) 09/30/2009 12/01/2013 ANEMIA BLOOD LOSS CHRONIC 12/23/20072013 documented as of this encounter (statuses as of 03/19/2022) [facility] History of Past illness Narrative* Problem Noted Date Resolved Date Chronic obstructive pulmonary disease 12/26/2015 03/15/2016 Coronary artery disease invo lving [place] coronary artery of [place] heart with angina pectoris 12/26/2015 06/07/2017 Atypical chest pain 12/26/2015 06/07/2017 Chronic right shoulder pain 07/14/2015 09/0 07/2016 SUMMARY 03/27/2015 10/25/2017 Overview: Leyda Lopez is a 54 year old female with COPD, asthma, sleep apnea, HTN, but no other previously known cardiac disease (echo 08/2014 showed normal LV function only mild MR and trivial TR with normal nuclear stress test) Now a transfer from OSH for due to Echo findings of severe MR and LHC with lesion of the ramus intermediate. She has been transferred to [facility] due to moderate disease in the ramus intermedius. NSTEMI (non-ST elevated myocardial infarction) 0 03/25/2015 05/21/2018 Overview: ASA 81 Atorvastatin 40 Lisinopril 40 Last Assessment & Plan: She takes the lisinopril the statin and the ASA. Neck pain, chronic 02/22/2015 11/06/2016 Non-ST elevation myocardial infarction (NSTEMI), initial episode of care 08/04/2014 05/21/2018 Overview: -Pt transferred to [facility] for NSTEMI? In setting of EKG abnormality and elevated troponin I, thought to be primary ACS vs 2/2 to increase in cardiac demand in setting of sepsis -PT never had CP OSH w/u -EKG --T wave changes in lateral leads -Elevated troponin I, Ck MB WNL -ECHO/Doppler --> Segmental wall motion abnormalities, EF 50%, +2 MR & TR, RVSP 38, no shunt -CTA 07/26/2014 --> No PE, no aortic dissection, Diffuse pulmonary infiltrates, cardiomegaly with evidence of RSHF -Started on Heparin gtt RF: HTN, ex smoker, FH of CAD (father <60 years), Off statins for long time, till restarted in the OSH, denies DM Plan -Trend CE x3 -High intensity statins, Lipitor 80mg QD -Tight BP control -Will hold off heparin, given that the pt is CP free -ECHO -Depending on ECHO results will proceed with either NM stress test or LHC Last Assessment & Plan: PMR (polymyalgia rheumatica) 07/20/2013 Polymyositis 09/29/2011 05/21/2018 Elevated blood pressure 09/09/2011 12/02/19 14 Chronic pain 04/18/2011 11/06/2016 Last Assessment & Plan: Takes ultram for chronic pains, myalgias and joint pains. Takes 2 tabs qid. States this does help with her pains. Dysphagia 10/25/2010 12/01/2013 Hypokalemia 10/04/2010 12/01/2013 Left Plantar fasciitis 10/04/2010 4 Bipolar affective 04/27/2010 05/21/2018 Overview: Continue Diazepam 10mg BID CRI (chronic renal insufficiency) 09/30/2009 12/01/2013 ANEMIA BLOOD LOSS CHRONIC 12/23/20072013 documented as of this encounter (statuses as of 03/29/2022) [facility] History of Past illness Narrative* Problem Noted Date Resolved Date Chronic obstructive pulmonary disease 12/26/2015 03/15/2016 Coronary artery disease invo lving [place] coronary artery of [place] heart with angina pectoris 12/26/2015 06/07/2017 Atypical chest pain 12/26/2015 06/07/2017 Chronic right shoulder pain 07/14/201507/2016 SUMMARY 03/27/2015 10/25/2017 Overview: Leyda Lopez is a 54 year old female with COPD, asthma, sleep apnea, HTN, but no other previously known cardiac disease (echo 08/2014 showed normal LV function only mild MR and trivial TR with normal nuclear stress test) Now a transfer from OSH for due to Echo findings of severe MR and LHC with lesion of the ramus intermediate. She has been transferred to [facility] due to moderate disease in the ramus intermedius. NSTEMI (non-ST elevated myocardial infarction) 0 03/25/2015 05/21/2018 Overview: ASA 81 Atorvastatin 40 Lisinopril 40 Last Assessment & Plan: She takes the lisinopril the statin and the ASA. Neck pain, chronic 02/22/2015 11/06/2016 Non-ST elevation myocardial infarction (NSTEMI), initial episode of care 08/04/2014 05/21/2018 Overview: -Pt transferred to [facility] for NSTEMI? In setting of EKG abnormality and elevated troponin I, thought to be primary ACS vs 2/2 to increase in cardiac demand in setting of sepsis -PT never had CP OSH w/u -EKG --T wave changes in lateral leads -Elevated troponin I, Ck MB WNL -ECHO/Doppler --> Segmental wall motion abnormalities, EF 50%, +2 MR & TR, RVSP 38, no shunt -CTA 07/26/2014 --> No PE, no aortic dissection, Diffuse pulmonary infiltrates, cardiomegaly with evidence of RSHF -Started on Heparin gtt RF: HTN, ex smoker, FH of CAD (father <60 years), Off statins for long time, till restarted in the OSH, denies DM Plan -Trend CE x3 -High intensity statins, Lipitor 80mg QD -Tight BP control -Will hold off heparin, given that the pt is CP free -ECHO -Depending on ECHO results will proceed with either NM stress test or LHC Last Assessment & Plan: PMR (polymyalgia rheumatica) 07/20/2013 Polymyositis 09/29/2011 05/21/2018 Elevated blood pressure 09/09/2011 12/02/19 14 Chronic pain 04/18/2011 11/06/2016 Last Assessment & Plan: Takes ultram for chronic pains, myalgias and joint pains. Takes 2 tabs qid. States this does help with her pains. Dysphagia 10/25/2010 12/01/2013 Hypokalemia 10/04/2010 12/01/2013 Left Plantar fasciitis 10/04/2010 4 Bipolar affective 04/27/2010 05/21/2018 Overview: Continue Diazepam 10mg BID CRI (chronic renal insufficiency) 09/30/2009 12/01/2013 ANEMIA BLOOD LOSS CHRONIC 12/23/20072013 documented as of this encounter (statuses as of 04/05/2022) [facility] History of Past illness Narrative* Problem Noted Date Resolved Date Chronic obstructive pulmonary disease 12/26/2015 03/15/2016 Coronary artery disease invo lving [place] coronary artery of [place] heart with angina pectoris 12/26/2015 06/07/2017 Atypical chest pain 12/26/2015 06/07/2017 Chronic right shoulder pain 07/14/2015/07/2016 SUMMARY 03/27/2015 10/25/2017 Overview: Leyda Lopez is a 54 year old female with COPD, asthma, sleep apnea, HTN, but no other previously known cardiac disease (echo 08/2014 showed normal LV function only mild MR and trivial TR with normal nuclear stress test) Now a transfer from OSH for due to Echo findings of severe MR and LHC with lesion of the ramus intermediate. She has been transferred to [facility] due to moderate disease in the ramus intermedius. NSTEMI (non-ST elevated myocardial infarction) 0 03/25/2015 05/21/2018 Overview: ASA 81 Atorvastatin 40 Lisinopril 40 Last Assessment & Plan: She takes the lisinopril the statin and the ASA. Neck pain, chronic 02/22/2015 11/06/2016 Non-ST elevation myocardial infarction (NSTEMI), initial episode of care 08/04/2014 05/21/2018 Overview: -Pt transferred to [facility] for NSTEMI? In setting of EKG abnormality and elevated troponin I, thought to be primary ACS vs 2/2 to increase in cardiac demand in setting of sepsis -PT never had CP OSH w/u -EKG --T wave changes in lateral leads -Elevated troponin I, Ck MB WNL -ECHO/Doppler --> Segmental wall motion abnormalities, EF 50%, +2 MR & TR, RVSP 38, no shunt -CTA 07/26/2014 --> No PE, no aortic dissection, Diffuse pulmonary infiltrates, cardiomegaly with evidence of RSHF -Started on Heparin gtt RF: HTN, ex smoker, FH of CAD (father <60 years), Off statins for long time, till restarted in the OSH, denies DM Plan -Trend CE x3 -High intensity statins, Lipitor 80mg QD -Tight BP control -Will hold off heparin, given that the pt is CP free -ECHO -Depending on ECHO results will proceed with either NM stress test or LHC Last Assessment & Plan: PMR (polymyalgia rheumatica) 07/20/2013 Polymyositis 09/29/2011 05/21/2018 Elevated blood pressure 09/09/2011 12/02/19 14 Chronic pain 04/18/2011 11/06/2016 Last Assessment & Plan: Takes ultram for chronic pains, myalgias and joint pains. Takes 2 tabs qid. States this does help with her pains. Dysphagia 10/25/2010 12/01/2013 Hypokalemia 10/04/2010 12/01/2013 Left Plantar fasciitis 10/04/2010 4 Bipolar affective 04/27/2010 05/21/2018 Overview: Continue Diazepam 10mg BID CRI (chronic renal insufficiency) 09/30/2009 12/01/2013 ANEMIA BLOOD LOSS CHRONIC 12/23/20072013 documented as of this encounter (statuses as of 04/06/2022) [facility] History of Past illness Narrative* Problem Noted Date Resolved Date Chronic obstructive pulmonary disease 12/26/2015 03/15/2016 Coronary artery disease invo lving [place] coronary artery of [place] heart with angina pectoris 12/26/2015 06/07/2017 Atypical chest pain 12/26/2015 06/07/2017 Chronic right shoulder pain 07/14/2015 09/0 07/2016 SUMMARY 03/27/2015 10/25/2017 Overview: Leyda Lopez is a 54 year old female with COPD, asthma, sleep apnea, HTN, but no other previously known cardiac disease (echo 08/2014 showed normal LV function only mild MR and trivial TR with normal nuclear stress test) Now a transfer from OSH for due to Echo findings of severe MR and LHC with lesion of the ramus intermediate. She has been transferred to [facility] due to moderate disease in the ramus intermedius. NSTEMI (non-ST elevated myocardial infarction) 0 03/25/2015 05/21/2018 Overview: ASA 81 Atorvastatin 40 Lisinopril 40 Last Assessment & Plan: She takes the lisinopril the statin and the ASA. Neck pain, chronic 02/22/2015 11/06/2016 Non-ST elevation myocardial infarction (NSTEMI), initial episode of care 08/04/2014 05/21/2018 Overview: -Pt transferred to [facility] for NSTEMI? In setting of EKG abnormality and elevated troponin I, thought to be primary ACS vs 2/2 to increase in cardiac demand in setting of sepsis -PT never had CP OSH w/u -EKG --T wave changes in lateral leads -Elevated troponin I, Ck MB WNL -ECHO/Doppler --> Segmental wall motion abnormalities, EF 50%, +2 MR & TR, RVSP 38, no shunt -CTA 07/26/2014 --> No PE, no aortic dissection, Diffuse pulmonary infiltrates, cardiomegaly with evidence of RSHF -Started on Heparin gtt RF: HTN, ex smoker, FH of CAD (father <60 years), Off statins for long time, till restarted in the OSH, denies DM Plan -Trend CE x3 -High intensity statins, Lipitor 80mg QD -Tight BP control -Will hold off heparin, given that the pt is CP free -ECHO -Depending on ECHO results will proceed with either NM stress test or LHC Last Assessment & Plan: PMR (polymyalgia rheumatica) 07/20/2013 Polymyositis 09/29/2011 05/21/2018 Elevated blood pressure 09/09/2011 12/02/19 14 Chronic pain 04/18/2011 11/06/2016 Last Assessment & Plan: Takes ultram for chronic pains, myalgias and joint pains. Takes 2 tabs qid. States this does help with her pains. Dysphagia 10/25/2010 12/01/2013 Hypokalemia 10/04/2010 12/01/2013 Left Plantar fasciitis 10/04/2010 4 Bipolar affective 04/27/2010 05/21/2018 Overview: Continue Diazepam 10mg BID CRI (chronic renal insufficiency) 09/30/2009 12/01/2013 ANEMIA BLOOD LOSS CHRONIC 12/23/20072013 documented as of this encounter (statuses as of 04/19/2022) [facility] History of Past illness Narrative* Problem Noted Date Resolved Date Chronic obstructive pulmonary disease 12/26/2015 03/15/2016 Coronary artery disease invo lving [place] coronary artery of [place] heart with angina pectoris 12/26/2015 06/07/2017 Atypical chest pain 12/26/2015 06/07/2017 Chronic right shoulder pain 07/14/2015 09/0 07/2016 SUMMARY 03/27/2015 10/25/2017 Overview: Leyda Lopez is a 54 year old female with COPD, asthma, sleep apnea, HTN, but no other previously known cardiac disease (echo 08/2014 showed normal LV function only mild MR and trivial TR with normal nuclear stress test) Now a transfer from OSH for due to Echo findings of severe MR and LHC with lesion of the ramus intermediate. She has been transferred to [facility] due to moderate disease in the ramus intermedius. NSTEMI (non-ST elevated myocardial infarction) 0 03/25/2015 05/21/2018 Overview: ASA 81 Atorvastatin 40 Lisinopril 40 Last Assessment & Plan: She takes the lisinopril the statin and the ASA. Neck pain, chronic 02/22/2015 11/06/2016 Non-ST elevation myocardial infarction (NSTEMI), initial episode of care 08/04/2014 05/21/2018 Overview: -Pt transferred to [facility] for NSTEMI? In setting of EKG abnormality and elevated troponin I, thought to be primary ACS vs 2/2 to increase in cardiac demand in setting of sepsis -PT never had CP OSH w/u -EKG --T wave changes in lateral leads -Elevated troponin I, Ck MB WNL -ECHO/Doppler --> Segmental wall motion abnormalities, EF 50%, +2 MR & TR, RVSP 38, no shunt -CTA 07/26/2014 --> No PE, no aortic dissection, Diffuse pulmonary infiltrates, cardiomegaly with evidence of RSHF -Started on Heparin gtt RF: HTN, ex smoker, FH of CAD (father <60 years), Off statins for long time, till restarted in the OSH, denies DM Plan -Trend CE x3 -High intensity statins, Lipitor 80mg QD -Tight BP control -Will hold off heparin, given that the pt is CP free -ECHO -Depending on ECHO results will proceed with either NM stress test or LHC Last Assessment & Plan: PMR (polymyalgia rheumatica) 07/20/2013 Polymyositis 09/29/2011 05/21/2018 Elevated blood pressure 09/09/2011 12/02/19 14 Chronic pain 04/18/2011 11/06/2016 Last Assessment & Plan: Takes ultram for chronic pains, myalgias and joint pains. Takes 2 tabs qid. States this does help with her pains. Dysphagia 10/25/2010 12/01/2013 Hypokalemia 10/04/2010 12/01/2013 Left Plantar fasciitis 10/04/2010 4 Bipolar affective 04/27/2010 05/21/2018 Overview: Continue Diazepam 10mg BID CRI (chronic renal insufficiency) 09/30/2009 12/01/2013 ANEMIA BLOOD LOSS CHRONIC 12/23/20072013 documented as of this encounter (statuses as of 04/25/2022) [facility] History of Past illness Narrative* Problem Noted Date Resolved Date Chronic obstructive pulmonary disease 12/26/2015 03/15/2016 Coronary artery disease invo lving [place] coronary artery of [place] heart with angina pectoris 12/26/2015 06/07/2017 Atypical chest pain 12/26/2015 06/07/2017 Chronic right shoulder pain 07/14/2015 09/0 07/2016 SUMMARY 03/27/2015 10/25/2017 Overview: Leyda Lopez is a 54 year old female with COPD, asthma, sleep apnea, HTN, but no other previously known cardiac disease (echo 08/2014 showed normal LV function only mild MR and trivial TR with normal nuclear stress test) Now a transfer from [facility]SH for due to Echo findings of severe MR and LHC with lesion of the ramus intermediate. She has been transferred to [facility] due to moderate disease in the ramus intermedius. NSTEMI (non-ST elevated myocardial infarction) 0 03/25/2015 05/21/2018 Overview: ASA 81 Atorvastatin 40 Lisinopril 40 Last Assessment & Plan: She takes the lisinopril the statin and the ASA. Neck pain, chronic 02/22/2015 11/06/2016 Non-ST elevation myocardial infarction (NSTEMI), initial episode of care 08/04/2014 05/21/2018 Overview: -Pt transferred to [facility] for NSTEMI? In setting of EKG abnormality and elevated troponin I, thought to be primary ACS vs 2/2 to increase in cardiac demand in setting of sepsis -PT never had CP OSH w/u -EKG --T wave changes in lateral leads -Elevated troponin I, Ck MB WNL -ECHO/Doppler --> Segmental wall motion abnormalities, EF 50%, +2 MR & TR, RVSP 38, no shunt -CTA 07/26/2014 --> No PE, no aortic dissection, Diffuse pulmonary infiltrates, cardiomegaly with evidence of RSHF -Started on Heparin gtt RF: HTN, ex smoker, FH of CAD (father <60 years), Off statins for long time, till restarted in the OSH, denies DM Plan -Trend CE x3 -High intensity statins, Lipitor 80mg QD -Tight BP control -Will hold off heparin, given that the pt is CP free -ECHO -Depending on ECHO results will proceed with either NM stress test or LHC Last Assessment & Plan: PMR (polymyalgia rheumatica) 07/20/2013 Polymyositis 09/29/2011 05/21/2018 Elevated blood pressure 09/09/2011 12/02/19 14 Chronic pain 04/18/2011 11/06/2016 Last Assessment & Plan: Takes ultram for chronic pains, myalgias and joint pains. Takes 2 tabs qid. States this does help with her pains. Dysphagia 10/25/2010 12/01/2013 Hypokalemia 10/04/2010 12/01/2013 Left Plantar fasciitis 10/04/2010 4 Bipolar affective 04/27/2010 05/21/2018 Overview: Continue Diazepam 10mg BID CRI (chronic renal insufficiency) 09/30/2009 12/01/2013 ANEMIA BLOOD LOSS CHRONIC 12/23/20072013 documented as of this encounter (statuses as of 04/27/2022) [facility] History of Past illness Narrative* Problem Noted Date Resolved Date Chronic obstructive pulmonary disease 12/26/2015 03/15/2016 Coronary artery disease invo lving [place] coronary artery of [place] heart with angina pectoris 12/26/2015 06/07/2017 Atypical chest pain 12/26/2015 06/07/2017 Chronic right shoulder pain 07/14/2015 09/0 07/2016 SUMMARY 03/27/2015 10/25/2017 Overview: Leyda Lopez is a 54 year old female with COPD, asthma, sleep apnea, HTN, but no other previously known cardiac disease (echo 08/2014 showed normal LV function only mild MR and trivial TR with normal nuclear stress test) Now a transfer from [facility]SH for due to Echo findings of severe MR and LHC with lesion of the ramus intermediate. She has been transferred to [facility] due to moderate disease in the ramus intermedius. NSTEMI (non-ST elevated myocardial infarction) 0 03/25/2015 05/21/2018 Overview: ASA 81 Atorvastatin 40 Lisinopril 40 Last Assessment & Plan: She takes the lisinopril the statin and the ASA. Neck pain, chronic 02/22/2015 11/06/2016 Non-ST elevation myocardial infarction (NSTEMI), initial episode of care 08/04/2014 05/21/2018 Overview: -Pt transferred to [facility] for NSTEMI? In setting of EKG abnormality and elevated troponin I, thought to be primary ACS vs 2/2 to increase in cardiac demand in setting of sepsis -PT never had CP OSH w/u -EKG --T wave changes in lateral leads -Elevated troponin I, Ck MB WNL -ECHO/Doppler --> Segmental wall motion abnormalities, EF 50%, +2 MR & TR, RVSP 38, no shunt -CTA 07/26/2014 --> No PE, no aortic dissection, Diffuse pulmonary infiltrates, cardiomegaly with evidence of RSHF -Started on Heparin gtt RF: HTN, ex smoker, FH of CAD (father <60 years), Off statins for long time, till restarted in the OSH, denies DM Plan -Trend CE x3 -High intensity statins, Lipitor 80mg QD -Tight BP control -Will hold off heparin, given that the pt is CP free -ECHO -Depending on ECHO results will proceed with either NM stress test or LHC Last Assessment & Plan: PMR (polymyalgia rheumatica) 07/20/2013 Polymyositis 09/29/2011 05/21/2018 Elevated blood pressure 09/09/2011 12/02/19 14 Chronic pain 04/18/2011 11/06/2016 Last Assessment & Plan: Takes ultram for chronic pains, myalgias and joint pains. Takes 2 tabs qid. States this does help with her pains. Dysphagia 10/25/2010 12/01/2013 Hypokalemia 10/04/2010 12/01/2013 Left Plantar fasciitis 10/04/2010 4 Bipolar affective 04/27/2010 05/21/2018 Overview: Continue Diazepam 10mg BID CRI (chronic renal insufficiency) 09/30/2009 12/01/2013 ANEMIA BLOOD LOSS CHRONIC 12/23/20072013 documented as of this encounter (statuses as of 05/03/2022) [facility] History of Past illness Narrative* Problem Noted Date Resolved Date Chronic obstructive pulmonary disease 12/26/2015 03/15/2016 Coronary artery disease invo lving [place] coronary artery of [place] heart with angina pectoris 12/26/2015 06/07/2017 Atypical chest pain 12/26/2015 06/07/2017 Chronic right shoulder pain 07/14/2015 09/0 07/2016 SUMMARY 03/27/2015 10/25/2017 Overview: Leyda Lopez is a 54 year old female with COPD, asthma, sleep apnea, HTN, but no other previously known cardiac disease (echo 08/2014 showed normal LV function only mild MR and trivial TR with normal nuclear stress test) Now a transfer from OSH for due to Echo findings of severe MR and LHC with lesion of the ramus intermediate. She has been transferred to [facility] due to moderate disease in the ramus intermedius. NSTEMI (non-ST elevated myocardial infarction) 0 03/25/2015 05/21/2018 Overview: ASA 81 Atorvastatin 40 Lisinopril 40 Last Assessment & Plan: She takes the lisinopril the statin and the ASA. Neck pain, chronic 02/22/2015 11/06/2016 Non-ST elevation myocardial infarction (NSTEMI), initial episode of care 08/04/2014 05/21/2018 Overview: -Pt transferred to [facility] for NSTEMI? In setting of EKG abnormality and elevated troponin I, thought to be primary ACS vs 2/2 to increase in cardiac demand in setting of sepsis -PT never had CP OSH w/u -EKG --T wave changes in lateral leads -Elevated troponin I, Ck MB WNL -ECHO/Doppler --> Segmental wall motion abnormalities, EF 50%, +2 MR & TR, RVSP 38, no shunt -CTA 07/26/2014 --> No PE, no aortic dissection, Diffuse pulmonary infiltrates, cardiomegaly with evidence of RSHF -Started on Heparin gtt RF: HTN, ex smoker, FH of CAD (father <60 years), Off statins for long time, till restarted in the OSH, denies DM Plan -Trend CE x3 -High intensity statins, Lipitor 80mg QD -Tight BP control -Will hold off heparin, given that the pt is CP free -ECHO -Depending on ECHO results will proceed with either NM stress test or LHC Last Assessment & Plan: PMR (polymyalgia rheumatica) 07/20/2013 Polymyositis 09/29/2011 05/21/2018 Elevated blood pressure 09/09/2011 12/02/19 14 Chronic pain 04/18/2011 11/06/2016 Last Assessment & Plan: Takes ultram for chronic pains, myalgias and joint pains. Takes 2 tabs qid. States this does help with her pains. Dysphagia 10/25/2010 12/01/2013 Hypokalemia 10/04/2010 12/01/2013 Left Plantar fasciitis 10/04/2010 4 Bipolar affective 04/27/2010 05/21/2018 Overview: Continue Diazepam 10mg BID CRI (chronic renal insufficiency) 09/30/2009 12/01/2013 ANEMIA BLOOD LOSS CHRONIC 12/23/20072013 documented as of this encounter (statuses as of 05/12/2022) [facility] History of Past illness Narrative* Problem Noted Date Resolved Date Chronic obstructive pulmonary disease 12/26/2015 03/15/2016 Coronary artery disease invo lving [place] coronary artery of [place] heart with angina pectoris 12/26/2015 06/07/2017 Atypical chest pain 12/26/2015 06/07/2017 Chronic right shoulder pain 07/14/2015 09/0 07/2016 SUMMARY 03/27/2015 10/25/2017 Overview: Leyda Lopez is a 54 year old female with COPD, asthma, sleep apnea, HTN, but no other previously known cardiac disease (echo 08/2014 showed normal LV function only mild MR and trivial TR with normal nuclear stress test) Now a transfer from OSH for due to Echo findings of severe MR and LHC with lesion of the ramus intermediate. She has been transferred to [facility] due to moderate disease in the ramus intermedius. NSTEMI (non-ST elevated myocardial infarction) 0 03/25/2015 05/21/2018 Overview: ASA 81 Atorvastatin 40 Lisinopril 40 Last Assessment & Plan: She takes the lisinopril the statin and the ASA. Neck pain, chronic 02/22/2015 11/06/2016 Non-ST elevation myocardial infarction (NSTEMI), initial episode of care 08/04/2014 05/21/2018 Overview: -Pt transferred to [facility] for NSTEMI? In setting of EKG abnormality and elevated troponin I, thought to be primary ACS vs 2/2 to increase in cardiac demand in setting of sepsis -PT never had CP OSH w/u -EKG --T wave changes in lateral leads -Elevated troponin I, Ck MB WNL -ECHO/Doppler --> Segmental wall motion abnormalities, EF 50%, +2 MR & TR, RVSP 38, no shunt -CTA 07/26/2014 --> No PE, no aortic dissection, Diffuse pulmonary infiltrates, cardiomegaly with evidence of RSHF -Started on Heparin gtt RF: HTN, ex smoker, FH of CAD (father <60 years), Off statins for long time, till restarted in the OSH, denies DM Plan -Trend CE x3 -High intensity statins, Lipitor 80mg QD -Tight BP control -Will hold off heparin, given that the pt is CP free -ECHO -Depending on ECHO results will proceed with either NM stress test or LHC Last Assessment & Plan: PMR (polymyalgia rheumatica) 07/20/2013 Polymyositis 09/29/2011 05/21/2018 Elevated blood pressure 09/09/2011 12/02/19 14 Chronic pain 04/18/2011 11/06/2016 Last Assessment & Plan: Takes ultram for chronic pains, myalgias and joint pains. Takes 2 tabs qid. States this does help with her pains. Dysphagia 10/25/2010 12/01/2013 Hypokalemia 10/04/2010 12/01/2013 Left Plantar fasciitis 10/04/2010 4 Bipolar affective 04/27/2010 05/21/2018 Overview: Continue Diazepam 10mg BID CRI (chronic renal insufficiency) 09/30/2009 12/01/2013 ANEMIA BLOOD LOSS CHRONIC 12/23/20072013 documented as of this encounter (statuses as of 05/27/2022) [facility] History of Past illness Narrative* Problem Noted Date Resolved Date Chronic obstructive pulmonary disease 12/26/2015 03/15/2016 Coronary artery disease invo lving [place] coronary artery of [place] heart with angina pectoris 12/26/2015 06/07/2017 Atypical chest pain 12/26/2015 06/07/2017 Chronic right shoulder pain 07/14/2015 09/0 07/2016 SUMMARY 03/27/2015 10/25/2017 Overview: Leyda Lopez is a 54 year old female with COPD, asthma, sleep apnea, HTN, but no other previously known cardiac disease (echo 08/2014 showed normal LV function only mild MR and trivial TR with normal nuclear stress test) Now a transfer from OSH for due to Echo findings of severe MR and LHC with lesion of the ramus intermediate. She has been transferred to [facility] due to moderate disease in the ramus intermedius. NSTEMI (non-ST elevated myocardial infarction) 0 03/25/2015 05/21/2018 Overview: ASA 81 Atorvastatin 40 Lisinopril 40 Last Assessment & Plan: She takes the lisinopril the statin and the ASA. Neck pain, chronic 02/22/2015 11/06/2016 Non-ST elevation myocardial infarction (NSTEMI), initial episode of care 08/04/2014 05/21/2018 Overview: -Pt transferred to [facility] for NSTEMI? In setting of EKG abnormality and elevated troponin I, thought to be primary ACS vs 2/2 to increase in cardiac demand in setting of sepsis -PT never had CP OSH w/u -EKG --T wave changes in lateral leads -Elevated troponin I, Ck MB WNL -ECHO/Doppler --> Segmental wall motion abnormalities, EF 50%, +2 MR & TR, RVSP 38, no shunt -CTA 07/26/2014 --> No PE, no aortic dissection, Diffuse pulmonary infiltrates, cardiomegaly with evidence of RSHF -Started on Heparin gtt RF: HTN, ex smoker, FH of CAD (father <60 years), Off statins for long time, till restarted in the OSH, denies DM Plan -Trend CE x3 -High intensity statins, Lipitor 80mg QD -Tight BP control -Will hold off heparin, given that the pt is CP free -ECHO -Depending on ECHO results will proceed with either NM stress test or LHC Last Assessment & Plan: PMR (polymyalgia rheumatica) 07/20/2013 Polymyositis 09/29/2011 05/21/2018 Elevated blood pressure 09/09/2011 12/02/19 14 Chronic pain 04/18/2011 11/06/2016 Last Assessment & Plan: Takes ultram for chronic pains, myalgias and joint pains. Takes 2 tabs qid. States this does help with her pains. Dysphagia 10/25/2010 12/01/2013 Hypokalemia 10/04/2010 12/01/2013 Left Plantar fasciitis 10/04/2010 4 Bipolar affective 04/27/2010 05/21/2018 Overview: Continue Diazepam 10mg BID CRI (chronic renal insufficiency) 09/30/2009 12/01/2013 ANEMIA BLOOD LOSS CHRONIC 12/23/20072013 documented as of this encounter (statuses as of 05/28/2022) [facility] History of Past illness Narrative* Problem Noted Date Resolved Date Chronic obstructive pulmonary disease 12/26/2015 03/15/2016 Coronary artery disease invo lving [place] coronary artery of [place] heart with angina pectoris 12/26/2015 06/07/2017 Atypical chest pain 12/26/2015 06/07/2017 Chronic right shoulder pain 07/14/2015 09/0 07/2016 SUMMARY 03/27/2015 10/25/2017 Overview: Leyda Lopez is a 54 year old female with COPD, asthma, sleep apnea, HTN, but no other previously known cardiac disease (echo 08/2014 showed normal LV function only mild MR and trivial TR with normal nuclear stress test) Now a transfer from OSH for due to Echo findings of severe MR and LHC with lesion of the ramus intermediate. She has been transferred to [facility] due to moderate disease in the ramus intermedius. NSTEMI (non-ST elevated myocardial infarction) 0 03/25/2015 05/21/2018 Overview: ASA 81 Atorvastatin 40 Lisinopril 40 Last Assessment & Plan: She takes the lisinopril the statin and the ASA. Neck pain, chronic 02/22/2015 11/06/2016 Non-ST elevation myocardial infarction (NSTEMI), initial episode of care 08/04/2014 05/21/2018 Overview: -Pt transferred to [facility] for NSTEMI? In setting of EKG abnormality and elevated troponin I, thought to be primary ACS vs 2/2 to increase in cardiac demand in setting of sepsis -PT never had CP OSH w/u -EKG --T wave changes in lateral leads -Elevated troponin I, Ck MB WNL -ECHO/Doppler --> Segmental wall motion abnormalities, EF 50%, +2 MR & TR, RVSP 38, no shunt -CTA 07/26/2014 --> No PE, no aortic dissection, Diffuse pulmonary infiltrates, cardiomegaly with evidence of RSHF -Started on Heparin gtt RF: HTN, ex smoker, FH of CAD (father <60 years), Off statins for long time, till restarted in the OSH, denies DM Plan -Trend CE x3 -High intensity statins, Lipitor 80mg QD -Tight BP control -Will hold off heparin, given that the pt is CP free -ECHO -Depending on ECHO results will proceed with either NM stress test or LHC Last Assessment & Plan: PMR (polymyalgia rheumatica) 07/20/2013 Polymyositis 09/29/2011 05/21/2018 Elevated blood pressure 09/09/2011 12/02/19 14 Chronic pain 04/18/2011 11/06/2016 Last Assessment & Plan: Takes ultram for chronic pains, myalgias and joint pains. Takes 2 tabs qid. States this does help with her pains. Dysphagia 10/25/2010 12/01/2013 Hypokalemia 10/04/2010 12/01/2013 Left Plantar fasciitis 10/04/2010 4 Bipolar affective 04/27/2010 05/21/2018 Overview: Continue Diazepam 10mg BID CRI (chronic renal insufficiency) 09/30/2009 12/01/2013 ANEMIA BLOOD LOSS CHRONIC 12/23/20072013 documented as of this encounter (statuses as of 05/29/2022) [facility] History of Past illness Narrative* Problem Noted Date Resolved Date Chronic obstructive pulmonary disease 12/26/2015 03/15/2016 Coronary artery disease invo lving [place] coronary artery of [place] heart with angina pectoris 12/26/2015 06/07/2017 Atypical chest pain 12/26/2015 06/07/2017 Chronic right shoulder pain 07/14/201507/2016 SUMMARY 03/27/2015 10/25/2017 Overview: Leyda Lopez is a 54 year old female with COPD, asthma, sleep apnea, HTN, but no other previously known cardiac disease (echo 08/2014 showed normal LV function only mild MR and trivial TR with normal nuclear stress test) Now a transfer from [facility]SH for due to Echo findings of severe MR and LHC with lesion of the ramus intermediate. She has been transferred to [facility] due to moderate disease in the ramus intermedius. NSTEMI (non-ST elevated myocardial infarction) 0 03/25/2015 05/21/2018 Overview: ASA 81 Atorvastatin 40 Lisinopril 40 Last Assessment & Plan: She takes the lisinopril the statin and the ASA. Neck pain, chronic 02/22/2015 11/06/2016 Non-ST elevation myocardial infarction (NSTEMI), initial episode of care 08/04/2014 05/21/2018 Overview: -Pt transferred to [facility] for [facility]? In setting of EKG abnormality and elevated troponin I, thought to be primary ACS vs 2/2 to increase in cardiac demand in setting of sepsis -PT never had CP OSH w/u -EKG --T wave changes in lateral leads -Elevated troponin I, Ck MB WNL -ECHO/Doppler --> Segmental wall motion abnormalities, EF 50%, +2 MR & TR, RVSP 38, no shunt -CTA 07/26/2014 --> No PE, no aortic dissection, Diffuse pulmonary infiltrates, cardiomegaly with evidence of RSHF -Started on Heparin gtt RF: HTN, ex smoker, FH of CAD (father <60 years), Off statins for long time, till restarted in the OSH, denies DM Plan -Trend CE x3 -High intensity statins, Lipitor 80mg QD -Tight BP control -Will hold off heparin, given that the pt is CP free -ECHO -Depending on ECHO results will proceed with either NM stress test or LHC Last Assessment & Plan: PMR (polymyalgia rheumatica) 07/20/2013 Polymyositis 09/29/2011 05/21/2018 Elevated blood pressure 09/09/2011 12/02/19 14 Chronic pain 04/18/2011 11/06/2016 Last Assessment & Plan: Takes ultram for chronic pains, myalgias and joint pains. Takes 2 tabs qid. States this does help with her pains. Dysphagia 10/25/2010 12/01/2013 Hypokalemia 10/04/2010 12/01/2013 Left Plantar fasciitis 10/04/2010 4 Bipolar affective 04/27/2010 05/21/2018 Overview: Continue Diazepam 10mg BID CRI (chronic renal insufficiency) 09/30/2009 12/01/2013 ANEMIA BLOOD LOSS CHRONIC 12/23/20072013 documented as of this encounter (statuses as of 05/30/2022) [facility] History of Past illness Narrative* Problem Noted Date Resolved Date Chronic obstructive pulmonary disease 12/26/2015 03/15/2016 Coronary artery disease invo lving [place] coronary artery of [place] heart with angina pectoris 12/26/2015 06/07/2017 Atypical chest pain 12/26/2015 06/07/2017 Chronic right shoulder pain 07/14/2015 09/0 07/2016 SUMMARY 03/27/2015 10/25/2017 Overview: Leyda Lopez is a 54 year old female with COPD, asthma, sleep apnea, HTN, but no other previously known cardiac disease (echo 08/2014 showed normal LV function only mild MR and trivial TR with normal nuclear stress test) Now a transfer from OSH for due to Echo findings of severe MR and LHC with lesion of the ramus intermediate. She has been transferred to [facility] due to moderate disease in the ramus intermedius. NSTEMI (non-ST elevated myocardial infarction) 0 03/25/2015 05/21/2018 Overview: ASA 81 Atorvastatin 40 Lisinopril 40 Last Assessment & Plan: She takes the lisinopril the statin and the ASA. Neck pain, chronic 02/22/2015 11/06/2016 Non-ST elevation myocardial infarction (NSTEMI), initial episode of care 08/04/2014 05/21/2018 Overview: -Pt transferred to [facility] for NSTEMI? In setting of EKG abnormality and elevated troponin I, thought to be primary ACS vs 2/2 to increase in cardiac demand in setting of sepsis -PT never had CP OSH w/u -EKG --T wave changes in lateral leads -Elevated troponin I, Ck MB WNL -ECHO/Doppler --> Segmental wall motion abnormalities, EF 50%, +2 MR & TR, RVSP 38, no shunt -CTA 07/26/2014 --> No PE, no aortic dissection, Diffuse pulmonary infiltrates, cardiomegaly with evidence of RSHF -Started on Heparin gtt RF: HTN, ex smoker, FH of CAD (father <60 years), Off statins for long time, till restarted in the OSH, denies DM Plan -Trend CE x3 -High intensity statins, Lipitor 80mg QD -Tight BP control -Will hold off heparin, given that the pt is CP free -ECHO -Depending on ECHO results will proceed with either NM stress test or LHC Last Assessment & Plan: PMR (polymyalgia rheumatica) 07/20/2013 Polymyositis 09/29/2011 05/21/2018 Elevated blood pressure 09/09/2011 12/02/19 14 Chronic pain 04/18/2011 11/06/2016 Last Assessment & Plan: Takes ultram for chronic pains, myalgias and joint pains. Takes 2 tabs qid. States this does help with her pains. Dysphagia 10/25/2010 12/01/2013 Hypokalemia 10/04/2010 12/01/2013 Left Plantar fasciitis 10/04/2010 4 Bipolar affective 04/27/2010 05/21/2018 Overview: Continue Diazepam 10mg BID CRI (chronic renal insufficiency) 09/30/2009 12/01/2013 ANEMIA BLOOD LOSS CHRONIC 12/23/20072013 documented as of this encounter (statuses as of 06/04/2022) [facility] History of Past illness Narrative* Problem Noted Date Resolved Date Chronic obstructive pulmonary disease 12/26/2015 03/15/2016 Coronary artery disease invo lving [place] coronary artery of [place] heart with angina pectoris 12/26/2015 06/07/2017 Atypical chest pain 12/26/2015 06/07/2017 Chronic right shoulder pain 07/14/201507/2016 SUMMARY 03/27/2015 10/25/2017 Overview: Leyda Lopez is a 54 year old female with COPD, asthma, sleep apnea, HTN, but no other previously known cardiac disease (echo 08/2014 showed normal LV function only mild MR and trivial TR with normal nuclear stress test) Now a transfer from [facility] for due to Echo findings of severe MR and LHC with lesion of the ramus intermediate. She has been transferred to [facility] due to moderate disease in the ramus intermedius. NSTEMI (non-ST elevated myocardial infarction) 0 03/25/2015 05/21/2018 Overview: ASA 81 Atorvastatin 40 Lisinopril 40 Last Assessment & Plan: She takes the lisinopril the statin and the ASA. Neck pain, chronic 02/22/2015 11/06/2016 Non-ST elevation myocardial infarction (NSTEMI), initial episode of care 08/04/2014 05/21/2018 Overview: -Pt transferred to [facility] for [facility]STEMI? In setting of EKG abnormality and elevated troponin I, thought to be primary ACS vs 2/2 to increase in cardiac demand in setting of sepsis -PT never had CP OSH w/u -EKG --T wave changes in lateral leads -Elevated troponin I, Ck MB WNL -ECHO/Doppler --> Segmental wall motion abnormalities, EF 50%, +2 MR & TR, RVSP 38, no shunt -CTA 07/26/2014 --> No PE, no aortic dissection, Diffuse pulmonary infiltrates, cardiomegaly with evidence of RSHF -Started on Heparin gtt RF: HTN, ex smoker, FH of CAD (father <60 years), Off statins for long time, till restarted in the OSH, denies DM Plan -Trend CE x3 -High intensity statins, Lipitor 80mg QD -Tight BP control -Will hold off heparin, given that the pt is CP free -ECHO -Depending on ECHO results will proceed with either NM stress test or LHC Last Assessment & Plan: PMR (polymyalgia rheumatica) 07/20/2013 Polymyositis 09/29/2011 05/21/2018 Elevated blood pressure 09/09/2011 12/02/19 14 Chronic pain 04/18/2011 11/06/2016 Last Assessment & Plan: Takes ultram for chronic pains, myalgias and joint pains. Takes 2 tabs qid. States this does help with her pains. Dysphagia 10/25/2010 12/01/2013 Hypokalemia 10/04/2010 12/01/2013 Left Plantar fasciitis 10/04/2010 4 Bipolar affective 04/27/2010 05/21/2018 Overview: Continue Diazepam 10mg BID CRI (chronic renal insufficiency) 09/30/2009 12/01/2013 ANEMIA BLOOD LOSS CHRONIC 12/23/20072013 documented as of this encounter (statuses as of 06/13/2022) [facility] History of Past illness Narrative* Problem Noted Date Resolved Date Chronic obstructive pulmonary disease 12/26/2015 03/15/2016 Coronary artery disease invo lving [place] coronary artery of [place] heart with angina pectoris 12/26/2015 06/07/2017 Atypical chest pain 12/26/2015 06/07/2017 Chronic right shoulder pain 07/14/201507/2016 SUMMARY 03/27/2015 10/25/2017 Overview: Leyda Lopez is a 54 year old female with COPD, asthma, sleep apnea, HTN, but no other previously known cardiac disease (echo 08/2014 showed normal LV function only mild MR and trivial TR with normal nuclear stress test) Now a transfer from [facility] for due to Echo findings of severe MR and LHC with lesion of the ramus intermediate. She has been transferred to [facility] due to moderate disease in the ramus intermedius. NSTEMI (non-ST elevated myocardial infarction) 0 03/25/2015 05/21/2018 Overview: ASA 81 Atorvastatin 40 Lisinopril 40 Last Assessment & Plan: She takes the lisinopril the statin and the ASA. Neck pain, chronic 02/22/2015 11/06/2016 Non-ST elevation myocardial infarction (NSTEMI), initial episode of care 08/04/2014 05/21/2018 Overview: -Pt transferred to [facility] for [facility]STEMI? In setting of EKG abnormality and elevated troponin I, thought to be primary ACS vs 2/2 to increase in cardiac demand in setting of sepsis -PT never had CP OSH w/u -EKG --T wave changes in lateral leads -Elevated troponin I, Ck MB WNL -ECHO/Doppler --> Segmental wall motion abnormalities, EF 50%, +2 MR & TR, RVSP 38, no shunt -CTA 07/26/2014 --> No PE, no aortic dissection, Diffuse pulmonary infiltrates, cardiomegaly with evidence of RSHF -Started on Heparin gtt RF: HTN, ex smoker, FH of CAD (father <60 years), Off statins for long time, till restarted in the OSH, denies DM Plan -Trend CE x3 -High intensity statins, Lipitor 80mg QD -Tight BP control -Will hold off heparin, given that the pt is CP free -ECHO -Depending on ECHO results will proceed with either NM stress test or LHC Last Assessment & Plan: PMR (polymyalgia rheumatica) 07/20/2013 Polymyositis 09/29/2011 05/21/2018 Elevated blood pressure 09/09/2011 12/02/19 14 Chronic pain 04/18/2011 11/06/2016 Last Assessment & Plan: Takes ultram for chronic pains, myalgias and joint pains. Takes 2 tabs qid. States this does help with her pains. Dysphagia 10/25/2010 12/01/2013 Hypokalemia 10/04/2010 12/01/2013 Left Plantar fasciitis 10/04/2010 4 Bipolar affective 04/27/2010 05/21/2018 Overview: Continue Diazepam 10mg BID CRI (chronic renal insufficiency) 09/30/2009 12/01/2013 ANEMIA BLOOD LOSS CHRONIC 12/23/20072013 documented as of this encounter (statuses as of 06/14/2022) [facility] History of Past illness Narrative* Problem Noted Date Resolved Date Chronic obstructive pulmonary disease 12/26/2015 03/15/2016 Coronary artery disease invo lving [place] coronary artery of [place] heart with angina pectoris 12/26/2015 06/07/2017 Atypical chest pain 12/26/2015 06/07/2017 Chronic right shoulder pain 07/14/2015 09/0 07/2016 SUMMARY 03/27/2015 10/25/2017 Overview: Leyda Lopez is a 54 year old female with COPD, asthma, sleep apnea, HTN, but no other previously known cardiac disease (echo 08/2014 showed normal LV function only mild MR and trivial TR with normal nuclear stress test) Now a transfer from [facility] for due to Echo findings of severe MR and LHC with lesion of the ramus intermediate. She has been transferred to [facility] due to moderate disease in the ramus intermedius. NSTEMI (non-ST elevated myocardial infarction) 0 03/25/2015 05/21/2018 Overview: ASA 81 Atorvastatin 40 Lisinopril 40 Last Assessment & Plan: She takes the lisinopril the statin and the ASA. Neck pain, chronic 02/22/2015 11/06/2016 Non-ST elevation myocardial infarction (NSTEMI), initial episode of care 08/04/2014 05/21/2018 Overview: -Pt transferred to [facility] for NSTEMI? In setting of EKG abnormality and elevated troponin I, thought to be primary ACS vs 2/2 to increase in cardiac demand in setting of sepsis -PT never had CP OSH w/u -EKG --T wave changes in lateral leads -Elevated troponin I, Ck MB WNL -ECHO/Doppler --> Segmental wall motion abnormalities, EF 50%, +2 MR & TR, RVSP 38, no shunt -CTA 07/26/2014 --> No PE, no aortic dissection, Diffuse pulmonary infiltrates, cardiomegaly with evidence of RSHF -Started on Heparin gtt RF: HTN, ex smoker, FH of CAD (father <60 years), Off statins for long time, till restarted in the OSH, denies DM Plan -Trend CE x3 -High intensity statins, Lipitor 80mg QD -Tight BP control -Will hold off heparin, given that the pt is CP free -ECHO -Depending on ECHO results will proceed with either NM stress test or LHC Last Assessment & Plan: PMR (polymyalgia rheumatica) 07/20/2013 Polymyositis 09/29/2011 05/21/2018 Elevated blood pressure 09/09/2011 12/02/19 14 Chronic pain 04/18/2011 11/06/2016 Last Assessment & Plan: Takes ultram for chronic pains, myalgias and joint pains. Takes 2 tabs qid. States this does help with her pains. Dysphagia 10/25/2010 12/01/2013 Hypokalemia 10/04/2010 12/01/2013 Left Plantar fasciitis 10/04/2010 4 Bipolar affective 04/27/2010 05/21/2018 Overview: Continue Diazepam 10mg BID CRI (chronic renal insufficiency) 09/30/2009 12/01/2013 ANEMIA BLOOD LOSS CHRONIC 12/23/20072013 documented as of this encounter (statuses as of 06/22/2022) [facility] History of Past illness Narrative* Problem Noted Date Resolved Date Chronic obstructive pulmonary disease 12/26/2015 03/15/2016 Coronary artery disease invo lving [place] coronary artery of [place] heart with angina pectoris 12/26/2015 06/07/2017 Atypical chest pain 12/26/2015 06/07/2017 Chronic right shoulder pain 07/14/2015 09/0 07/2016 SUMMARY 03/27/2015 10/25/2017 Overview: Leyda Lopez is a 54 year old female with COPD, asthma, sleep apnea, HTN, but no other previously known cardiac disease (echo 08/2014 showed normal LV function only mild MR and trivial TR with normal nuclear stress test) Now a transfer from OSH for due to Echo findings of severe MR and LHC with lesion of the ramus intermediate. She has been transferred to [facility] due to moderate disease in the ramus intermedius. NSTEMI (non-ST elevated myocardial infarction) 0 03/25/2015 05/21/2018 Overview: ASA 81 Atorvastatin 40 Lisinopril 40 Last Assessment & Plan: She takes the lisinopril the statin and the ASA. Neck pain, chronic 02/22/2015 11/06/2016 Non-ST elevation myocardial infarction (NSTEMI), initial episode of care 08/04/2014 05/21/2018 Overview: -Pt transferred to [facility] for NSTEMI? In setting of EKG abnormality and elevated troponin I, thought to be primary ACS vs 2/2 to increase in cardiac demand in setting of sepsis -PT never had CP OSH w/u -EKG --T wave changes in lateral leads -Elevated troponin I, Ck MB WNL -ECHO/Doppler --> Segmental wall motion abnormalities, EF 50%, +2 MR & TR, RVSP 38, no shunt -CTA 07/26/2014 --> No PE, no aortic dissection, Diffuse pulmonary infiltrates, cardiomegaly with evidence of RSHF -Started on Heparin gtt RF: HTN, ex smoker, FH of CAD (father <60 years), Off statins for long time, till restarted in the OSH, denies DM Plan -Trend CE x3 -High intensity statins, Lipitor 80mg QD -Tight BP control -Will hold off heparin, given that the pt is CP free -ECHO -Depending on ECHO results will proceed with either NM stress test or LHC Last Assessment & Plan: PMR (polymyalgia rheumatica) 07/20/2013 Polymyositis 09/29/2011 05/21/2018 Elevated blood pressure 09/09/2011 12/02/19 14 Chronic pain 04/18/2011 11/06/2016 Last Assessment & Plan: Takes ultram for chronic pains, myalgias and joint pains. Takes 2 tabs qid. States this does help with her pains. Dysphagia 10/25/2010 12/01/2013 Hypokalemia 10/04/2010 12/01/2013 Left Plantar fasciitis 10/04/2010 4 Bipolar affective 04/27/2010 05/21/2018 Overview: Continue Diazepam 10mg BID CRI (chronic renal insufficiency) 09/30/2009 12/01/2013 ANEMIA BLOOD LOSS CHRONIC 12/23/20072013 documented as of this encounter (statuses as of 06/26/2022) [facility] History of Past illness Narrative* Problem Noted Date Resolved Date Chronic obstructive pulmonary disease 12/26/2015 03/15/2016 Coronary artery disease invo lving [place] coronary artery of [place] heart with angina pectoris 12/26/2015 06/07/2017 Atypical chest pain 12/26/2015 06/07/2017 Chronic right shoulder pain 07/14/201507/2016 SUMMARY 03/27/2015 10/25/2017 Overview: Leyda Lopez is a 54 year old female with COPD, asthma, sleep apnea, HTN, but no other previously known cardiac disease (echo 08/2014 showed normal LV function only mild MR and trivial TR with normal nuclear stress test) Now a transfer from OSH for due to Echo findings of severe MR and LHC with lesion of the ramus intermediate. She has been transferred to [facility] due to moderate disease in the ramus intermedius. NSTEMI (non-ST elevated myocardial infarction) 0 03/25/2015 05/21/2018 Overview: ASA 81 Atorvastatin 40 Lisinopril 40 Last Assessment & Plan: She takes the lisinopril the statin and the ASA. Neck pain, chronic 02/22/2015 11/06/2016 Non-ST elevation myocardial infarction (NSTEMI), initial episode of care 08/04/2014 05/21/2018 Overview: -Pt transferred to [facility] for NSTEMI? In setting of EKG abnormality and elevated troponin I, thought to be primary ACS vs 2/2 to increase in cardiac demand in setting of sepsis -PT never had CP OSH w/u -EKG --T wave changes in lateral leads -Elevated troponin I, Ck MB WNL -ECHO/Doppler --> Segmental wall motion abnormalities, EF 50%, +2 MR & TR, RVSP 38, no shunt -CTA 07/26/2014 --> No PE, no aortic dissection, Diffuse pulmonary infiltrates, cardiomegaly with evidence of RSHF -Started on Heparin gtt RF: HTN, ex smoker, FH of CAD (father <60 years), Off statins for long time, till restarted in the OSH, denies DM Plan -Trend CE x3 -High intensity statins, Lipitor 80mg QD -Tight BP control -Will hold off heparin, given that the pt is CP free -ECHO -Depending on ECHO results will proceed with either NM stress test or LHC Last Assessment & Plan: PMR (polymyalgia rheumatica) 07/20/2013 Polymyositis 09/29/2011 05/21/2018 Elevated blood pressure 09/09/2011 12/02/19 14 Chronic pain 04/18/2011 11/06/2016 Last Assessment & Plan: Takes ultram for chronic pains, myalgias and joint pains. Takes 2 tabs qid. States this does help with her pains. Dysphagia 10/25/2010 12/01/2013 Hypokalemia 10/04/2010 12/01/2013 Left Plantar fasciitis 10/04/2010 4 Bipolar affective 04/27/2010 05/21/2018 Overview: Continue Diazepam 10mg BID CRI (chronic renal insufficiency) 09/30/2009 12/01/2013 ANEMIA BLOOD LOSS CHRONIC 12/23/20072013 documented as of this encounter (statuses as of 06/27/2022) [facility] History of Past illness Narrative* Problem Noted Date Resolved Date Chronic obstructive pulmonary disease 12/26/2015 03/15/2016 Coronary artery disease invo lving [place] coronary artery of [place] heart with angina pectoris 12/26/2015 06/07/2017 Atypical chest pain 12/26/2015 06/07/2017 Chronic right shoulder pain 07/14/2015 09/0 07/2016 SUMMARY 03/27/2015 10/25/2017 Overview: Leyda Lopez is a 54 year old female with COPD, asthma, sleep apnea, HTN, but no other previously known cardiac disease (echo 08/2014 showed normal LV function only mild MR and trivial TR with normal nuclear stress test) Now a transfer from OSH for due to Echo findings of severe MR and LHC with lesion of the ramus intermediate. She has been transferred to [facility] due to moderate disease in the ramus intermedius. NSTEMI (non-ST elevated myocardial infarction) 0 03/25/2015 05/21/2018 Overview: ASA 81 Atorvastatin 40 Lisinopril 40 Last Assessment & Plan: She takes the lisinopril the statin and the ASA. Neck pain, chronic 02/22/2015 11/06/2016 Non-ST elevation myocardial infarction (NSTEMI), initial episode of care 08/04/2014 05/21/2018 Overview: -Pt transferred to [facility] for NSTEMI? In setting of EKG abnormality and elevated troponin I, thought to be primary ACS vs 2/2 to increase in cardiac demand in setting of sepsis -PT never had CP OSH w/u -EKG --T wave changes in lateral leads -Elevated troponin I, Ck MB WNL -ECHO/Doppler --> Segmental wall motion abnormalities, EF 50%, +2 MR & TR, RVSP 38, no shunt -CTA 07/26/2014 --> No PE, no aortic dissection, Diffuse pulmonary infiltrates, cardiomegaly with evidence of RSHF -Started on Heparin gtt RF: HTN, ex smoker, FH of CAD (father <60 years), Off statins for long time, till restarted in the OSH, denies DM Plan -Trend CE x3 -High intensity statins, Lipitor 80mg QD -Tight BP control -Will hold off heparin, given that the pt is CP free -ECHO -Depending on ECHO results will proceed with either NM stress test or LHC Last Assessment & Plan: PMR (polymyalgia rheumatica) 07/20/2013 Polymyositis 09/29/2011 05/21/2018 Elevated blood pressure 09/09/2011 12/02/19 14 Chronic pain 04/18/2011 11/06/2016 Last Assessment & Plan: Takes ultram for chronic pains, myalgias and joint pains. Takes 2 tabs qid. States this does help with her pains. Dysphagia 10/25/2010 12/01/2013 Hypokalemia 10/04/2010 12/01/2013 Left Plantar fasciitis 10/04/2010 4 Bipolar affective 04/27/2010 05/21/2018 Overview: Continue Diazepam 10mg BID CRI (chronic renal insufficiency) 09/30/2009 12/01/2013 ANEMIA BLOOD LOSS CHRONIC 12/23/20072013 documented as of this encounter (statuses as of 06/28/2022) [facility] History of Past illness Narrative* Problem Noted Date Resolved Date Chronic obstructive pulmonary disease 12/26/2015 03/15/2016 Coronary artery disease invo lving [place] coronary artery of [place] heart with angina pectoris 12/26/2015 06/07/2017 Atypical chest pain 12/26/2015 06/07/2017 Chronic right shoulder pain 07/14/2015 09/0 07/2016 SUMMARY 03/27/2015 10/25/2017 Overview: Leyda Lopez is a 54 year old female with COPD, asthma, sleep apnea, HTN, but no other previously known cardiac disease (echo 08/2014 showed normal LV function only mild MR and trivial TR with normal nuclear stress test) Now a transfer from OSH for due to Echo findings of severe MR and LHC with lesion of the ramus intermediate. She has been transferred to [facility] due to moderate disease in the ramus intermedius. NSTEMI (non-ST elevated myocardial infarction) 0 03/25/2015 05/21/2018 Overview: ASA 81 Atorvastatin 40 Lisinopril 40 Last Assessment & Plan: She takes the lisinopril the statin and the ASA. Neck pain, chronic 02/22/2015 11/06/2016 Non-ST elevation myocardial infarction (NSTEMI), initial episode of care 08/04/2014 05/21/2018 Overview: -Pt transferred to [facility] for NSTEMI? In setting of EKG abnormality and elevated troponin I, thought to be primary ACS vs 2/2 to increase in cardiac demand in setting of sepsis -PT never had CP OSH w/u -EKG --T wave changes in lateral leads -Elevated troponin I, Ck MB WNL -ECHO/Doppler --> Segmental wall motion abnormalities, EF 50%, +2 MR & TR, RVSP 38, no shunt -CTA 07/26/2014 --> No PE, no aortic dissection, Diffuse pulmonary infiltrates, cardiomegaly with evidence of RSHF -Started on Heparin gtt RF: HTN, ex smoker, FH of CAD (father <60 years), Off statins for long time, till restarted in the OSH, denies DM Plan -Trend CE x3 -High intensity statins, Lipitor 80mg QD -Tight BP control -Will hold off heparin, given that the pt is CP free -ECHO -Depending on ECHO results will proceed with either NM stress test or LHC Last Assessment & Plan: PMR (polymyalgia rheumatica) 07/20/2013 Polymyositis 09/29/2011 05/21/2018 Elevated blood pressure 09/09/2011 12/02/19 14 Chronic pain 04/18/2011 11/06/2016 Last Assessment & Plan: Takes ultram for chronic pains, myalgias and joint pains. Takes 2 tabs qid. States this does help with her pains. Dysphagia 10/25/2010 12/01/2013 Hypokalemia 10/04/2010 12/01/2013 Left Plantar fasciitis 10/04/2010 4 Bipolar affective 04/27/2010 05/21/2018 Overview: Continue Diazepam 10mg BID CRI (chronic renal insufficiency) 09/30/2009 12/01/2013 ANEMIA BLOOD LOSS CHRONIC 12/23/20072013 documented as of this encounter (statuses as of 06/29/2022) [facility] History of Past illness Narrative* Problem Noted Date Resolved Date Chronic obstructive pulmonary disease 12/26/2015 03/15/2016 Coronary artery disease invo lving [place] coronary artery of [place] heart with angina pectoris 12/26/2015 06/07/2017 Atypical chest pain 12/26/2015 06/07/2017 Chronic right shoulder pain 07/14/2015 09/0 07/2016 SUMMARY 03/27/2015 10/25/2017 Overview: Leyda Lopez is a 54 year old female with COPD, asthma, sleep apnea, HTN, but no other previously known cardiac disease (echo 08/2014 showed normal LV function only mild MR and trivial TR with normal nuclear stress test) Now a transfer from OSH for due to Echo findings of severe MR and LHC with lesion of the ramus intermediate. She has been transferred to [facility] due to moderate disease in the ramus intermedius. NSTEMI (non-ST elevated myocardial infarction) 0 03/25/2015 05/21/2018 Overview: ASA 81 Atorvastatin 40 Lisinopril 40 Last Assessment & Plan: She takes the lisinopril the statin and the ASA. Neck pain, chronic 02/22/2015 11/06/2016 Non-ST elevation myocardial infarction (NSTEMI), initial episode of care 08/04/2014 05/21/2018 Overview: -Pt transferred to [facility] for NSTEMI? In setting of EKG abnormality and elevated troponin I, thought to be primary ACS vs 2/2 to increase in cardiac demand in setting of sepsis -PT never had CP OSH w/u -EKG --T wave changes in lateral leads -Elevated troponin I, Ck MB WNL -ECHO/Doppler --> Segmental wall motion abnormalities, EF 50%, +2 MR & TR, RVSP 38, no shunt -CTA 07/26/2014 --> No PE, no aortic dissection, Diffuse pulmonary infiltrates, cardiomegaly with evidence of RSHF -Started on Heparin gtt RF: HTN, ex smoker, FH of CAD (father <60 years), Off statins for long time, till restarted in the OSH, denies DM Plan -Trend CE x3 -High intensity statins, Lipitor 80mg QD -Tight BP control -Will hold off heparin, given that the pt is CP free -ECHO -Depending on ECHO results will proceed with either NM stress test or LHC Last Assessment & Plan: PMR (polymyalgia rheumatica) 07/20/2013 Polymyositis 09/29/2011 05/21/2018 Elevated blood pressure 09/09/2011 12/02/19 14 Chronic pain 04/18/2011 11/06/2016 Last Assessment & Plan: Takes ultram for chronic pains, myalgias and joint pains. Takes 2 tabs qid. States this does help with her pains. Dysphagia 10/25/2010 12/01/2013 Hypokalemia 10/04/2010 12/01/2013 Left Plantar fasciitis 10/04/2010 4 Bipolar affective 04/27/2010 05/21/2018 Overview: Continue Diazepam 10mg BID CRI (chronic renal insufficiency) 09/30/2009 12/01/2013 ANEMIA BLOOD LOSS CHRONIC 12/23/20072013 documented as of this encounter (statuses as of 06/29/2022) [facility] History of Past illness Narrative* Problem Noted Date Resolved Date Chronic obstructive pulmonary disease 12/26/2015 03/15/2016 Coronary artery disease invo lving [place] coronary artery of [place] heart with angina pectoris 12/26/2015 06/07/2017 Atypical chest pain 12/26/2015 06/07/2017 Chronic right shoulder pain 07/14/2015 09/0 07/2016 SUMMARY 03/27/2015 10/25/2017 Overview: Leyda Lopez is a 54 year old female with COPD, asthma, sleep apnea, HTN, but no other previously known cardiac disease (echo 08/2014 showed normal LV function only mild MR and trivial TR with normal nuclear stress test) Now a transfer from OSH for due to Echo findings of severe MR and LHC with lesion of the ramus intermediate. She has been transferred to [facility] due to moderate disease in the ramus intermedius. NSTEMI (non-ST elevated myocardial infarction) 0 03/25/2015 05/21/2018 Overview: ASA 81 Atorvastatin 40 Lisinopril 40 Last Assessment & Plan: She takes the lisinopril the statin and the ASA. Neck pain, chronic 02/22/2015 11/06/2016 Non-ST elevation myocardial infarction (NSTEMI), initial episode of care 08/04/2014 05/21/2018 Overview: -Pt transferred to [facility] for NSTEMI? In setting of EKG abnormality and elevated troponin I, thought to be primary ACS vs 2/2 to increase in cardiac demand in setting of sepsis -PT never had CP OSH w/u -EKG --T wave changes in lateral leads -Elevated troponin I, Ck MB WNL -ECHO/Doppler --> Segmental wall motion abnormalities, EF 50%, +2 MR & TR, RVSP 38, no shunt -CTA 07/26/2014 --> No PE, no aortic dissection, Diffuse pulmonary infiltrates, cardiomegaly with evidence of RSHF -Started on Heparin gtt RF: HTN, ex smoker, FH of CAD (father <60 years), Off statins for long time, till restarted in the OSH, denies DM Plan -Trend CE x3 -High intensity statins, Lipitor 80mg QD -Tight BP control -Will hold off heparin, given that the pt is CP free -ECHO -Depending on ECHO results will proceed with either NM stress test or LHC Last Assessment & Plan: PMR (polymyalgia rheumatica) 07/20/2013 Polymyositis 09/29/2011 05/21/2018 Elevated blood pressure 09/09/2011 12/02/19 14 Chronic pain 04/18/2011 11/06/2016 Last Assessment & Plan: Takes ultram for chronic pains, myalgias and joint pains. Takes 2 tabs qid. States this does help with her pains. Dysphagia 10/25/2010 12/01/2013 Hypokalemia 10/04/2010 12/01/2013 Left Plantar fasciitis 10/04/2010 4 Bipolar affective 04/27/2010 05/21/2018 Overview: Continue Diazepam 10mg BID CRI (chronic renal insufficiency) 09/30/2009 12/01/2013 ANEMIA BLOOD LOSS CHRONIC 12/23/20072013 documented as of this encounter (statuses as of 07/31/2022) [facility] History of Past illness Narrative* Problem Noted Date Resolved Date Chronic obstructive pulmonary disease 12/26/2015 03/15/2016 Coronary artery disease invo lving [place] coronary artery of [place] heart with angina pectoris 12/26/2015 06/07/2017 Atypical chest pain 12/26/2015 06/07/2017 Chronic right shoulder pain 07/14/201507/2016 SUMMARY 03/27/2015 10/25/2017 Overview: Leyad Lopez is a 54 year old female with COPD, asthma, sleep apnea, HTN, but no other previously known cardiac disease (echo 08/2014 showed normal LV function only mild MR and trivial TR with normal nuclear stress test) Now a transfer from OSH for due to Echo findings of severe MR and LHC with lesion of the ramus intermediate. She has been transferred to [facility] due to moderate disease in the ramus intermedius. NSTEMI (non-ST elevated myocardial infarction) 0 03/25/2015 05/21/2018 Overview: ASA 81 Atorvastatin 40 Lisinopril 40 Last Assessment & Plan: She takes the lisinopril the statin and the ASA. Neck pain, chronic 02/22/2015 11/06/2016 Non-ST elevation myocardial infarction (NSTEMI), initial episode of care 08/04/2014 05/21/2018 Overview: -Pt transferred to [facility] for NSTEMI? In setting of EKG abnormality and elevated troponin I, thought to be primary ACS vs 2/2 to increase in cardiac demand in setting of sepsis -PT never had CP OSH w/u -EKG --T wave changes in lateral leads -Elevated troponin I, Ck MB WNL -ECHO/Doppler --> Segmental wall motion abnormalities, EF 50%, +2 MR & TR, RVSP 38, no shunt -CTA 07/26/2014 --> No PE, no aortic dissection, Diffuse pulmonary infiltrates, cardiomegaly with evidence of RSHF -Started on Heparin gtt RF: HTN, ex smoker, FH of CAD (father <60 years), Off statins for long time, till restarted in the OSH, denies DM Plan -Trend CE x3 -High intensity statins, Lipitor 80mg QD -Tight BP control -Will hold off heparin, given that the pt is CP free -ECHO -Depending on ECHO results will proceed with either NM stress test or LHC Last Assessment & Plan: PMR (polymyalgia rheumatica) 07/20/2013 Polymyositis 09/29/2011 05/21/2018 Elevated blood pressure 09/09/2011 12/02/19 14 Chronic pain 04/18/2011 11/06/2016 Last Assessment & Plan: Takes ultram for chronic pains, myalgias and joint pains. Takes 2 tabs qid. States this does help with her pains. Dysphagia 10/25/2010 12/01/2013 Hypokalemia 10/04/2010 12/01/2013 Left Plantar fasciitis 10/04/2010 4 Bipolar affective 04/27/2010 05/21/2018 Overview: Continue Diazepam 10mg BID CRI (chronic renal insufficiency) 09/30/2009 12/01/2013 ANEMIA BLOOD LOSS CHRONIC 12/23/20072013 documented as of this encounter (statuses as of 08/30/2022) [facility] History of Past illness Narrative* Problem Noted Date Diagnosed Date Resolved Date Chronic obstructive pulmonary disease 12/26/2015 03/15/2016 Coronary artery disease invo lving [place] coronary artery of [place] heart with angina pectoris 12/26/2015 06/07/2017 Atypical chest pain 12/26/2015 06/08/19 18 Chronic right shoulder pain 07/14/2015 11/06/2016 SUMMARY 03/27/2015 10/25/2017 Overview: Leyda Lopez is a 54 year old female with COPD, asthma, sleep apnea, HTN, but no other previously known cardiac disease (echo 08/2014 showed normal LV function only mild MR and trivial TR with normal nuclear stress test) Now a transfer from OSH for due to Echo findings of severe MR and LHC with lesion of the ramus intermediate. She has been transferred to [facility] due to moderate disease in the ramus intermedius. NSTEMI (non-ST elevated myoc ardial infarction) 03/25/2015 05/21/2018 Overview: ASA 81 Atorvastatin 40 Lisinopril 40 Last Assessment & Plan: She takes the lisinopril the statin and the ASA. Neck pain, chronic 02/22/2015 7 Non-ST elevation myocardial infarction (NSTEMI), initial episode of care 08/04/20142018 Overview: -Pt transferred to [facility] for NSTEMI? In setting of EKG abnormality and elevated troponin I, thought to be primary ACS vs 2/2 to increase in cardiac demand in setting of sepsis -PT never had CP OSH w/u -EKG --T wave changes in lateral leads -Elevated troponin I, Ck MB WNL -ECHO/Doppler --> Segmental wall motion abnormalities, EF 50%, +2 MR & TR, RVSP 38, no shunt -CTA 07/26/2014 --> No PE, no aortic dissection, Diffuse pulmonary infiltrates, cardiomegaly with evidence of RSHF -Started on Heparin gtt RF: HTN, ex smoker, FH of CAD (father <60 years), Off statins for long time, till restarted in the OSH, denies DM Plan -Trend CE x3 -High intensity statins, Lipitor 80mg QD -Tight BP control -Will hold off heparin, given that the pt is CP free -ECHO -Depending on ECHO results will proceed with either NM stress test or LHC Last Assessment & Plan: PMR (polymyalgia rheumatica) 07/20/2013 05/21/2018 Polymyositis 09/29/2011 05/21/2018 Elevated blood pressure 09/09/201111/04 Chronic pain 04/18/2011 11/06/2016 Last Assessment & Plan: Takes ultram for chronic pains, myalgias and joint pains. Takes 2 tabs qid. States this does help with her pains. Dysphagia 10/25/2010 12/01/2013 Hypokalemia 10/04/2010 12/01/2013 Left Plantar fasciitis 10/04/201012/01 Bipolar affective 04/27/2010 05/21/2018 Overview: Continue Diazepam 10mg BID CRI (chronic renal insufficiency) 09/30/2009 12/01/2013 ANEMIA BLOOD LOSS CHRONIC 12/23/2007 documented as of this encounter (statuses as of 09/20/2022) [facility] History of Past illness Narrative* Problem Noted Date Diagnosed Date Resolved Date Chronic obstructive pulmonary disease 12/26/2015 03/15/2016 Coronary artery disease invo lving [place] coronary artery of [place] heart with angina pectoris 12/26/2015 06/07/2017 Atypical chest pain 12/26/2015 06/08/19 18 Chronic right shoulder pain 07/14/2015 11/06/2016 SUMMARY 03/27/2015 10/25/2017 Overview: Leyda Lopez is a 54 year old female with COPD, asthma, sleep apnea, HTN, but no other previously known cardiac disease (echo 08/2014 showed normal LV function only mild MR and trivial TR with normal nuclear stress test) Now a transfer from [facility]SH for due to Echo findings of severe MR and LHC with lesion of the ramus intermediate. She has been transferred to [facility] due to moderate disease in the ramus intermedius. NSTEMI (non-ST elevated myoc ardial infarction) 03/25/2015 05/21/2018 Overview: ASA 81 Atorvastatin 40 Lisinopril 40 Last Assessment & Plan: She takes the lisinopril the statin and the ASA. Neck pain, chronic 02/22/2015 7 Non-ST elevation myocardial infarction (NSTEMI), initial episode of care 08/04/20142018 Overview: -Pt transferred to [facility] for NSTEMI? In setting of EKG abnormality and elevated troponin I, thought to be primary ACS vs 2/2 to increase in cardiac demand in setting of sepsis -PT never had CP OSH w/u -EKG --T wave changes in lateral leads -Elevated troponin I, Ck MB WNL -ECHO/Doppler --> Segmental wall motion abnormalities, EF 50%, +2 MR & TR, RVSP 38, no shunt -CTA 07/26/2014 --> No PE, no aortic dissection, Diffuse pulmonary infiltrates, cardiomegaly with evidence of RSHF -Started on Heparin gtt RF: HTN, ex smoker, FH of CAD (father <60 years), Off statins for long time, till restarted in the OSH, denies DM Plan -Trend CE x3 -High intensity statins, Lipitor 80mg QD -Tight BP control -Will hold off heparin, given that the pt is CP free -ECHO -Depending on ECHO results will proceed with either NM stress test or LHC Last Assessment & Plan: PMR (polymyalgia rheumatica) 07/20/2013 05/21/2018 Polymyositis 09/29/2011 05/21/2018 Elevated blood pressure 09/09/201111/04 Chronic pain 04/18/2011 11/06/2016 Last Assessment & Plan: Takes ultram for chronic pains, myalgias and joint pains. Takes 2 tabs qid. States this does help with her pains. Dysphagia 10/25/2010 12/01/2013 Hypokalemia 10/04/2010 12/01/2013 Left Plantar fasciitis 10/04/201012/01 Bipolar affective 04/27/2010 05/21/2018 Overview: Continue Diazepam 10mg BID CRI (chronic renal insufficiency) 09/30/2009 12/01/2013 ANEMIA BLOOD LOSS CHRONIC 12/23/2007 documented as of this encounter (statuses as of 09/21/2022) [facility] History of Past illness Narrative* Problem Noted Date Diagnosed Date Resolved Date Chronic obstructive pulmonary disease 12/26/2015 03/15/2016 Coronary artery disease invo lving [place] coronary artery of [place] heart with angina pectoris 12/26/2015 06/07/2017 Atypical chest pain 12/26/2015 06/08/19 18 Chronic right shoulder pain 07/14/2015 11/06/2016 SUMMARY 03/27/2015 10/25/2017 Overview: Leyda Lopez is a 54 year old female with COPD, asthma, sleep apnea, HTN, but no other previously known cardiac disease (echo 08/2014 showed normal LV function only mild MR and trivial TR with normal nuclear stress test) Now a transfer from OSH for due to Echo findings of severe MR and LHC with lesion of the ramus intermediate. She has been transferred to [facility] due to moderate disease in the ramus intermedius. NSTEMI (non-ST elevated myoc ardial infarction) 03/25/2015 05/21/2018 Overview: ASA 81 Atorvastatin 40 Lisinopril 40 Last Assessment & Plan: She takes the lisinopril the statin and the ASA. Neck pain, chronic 02/22/2015 7 Non-ST elevation myocardial infarction (NSTEMI), initial episode of care 08/04/20142018 Overview: -Pt transferred to [facility] for NSTEMI? In setting of EKG abnormality and elevated troponin I, thought to be primary ACS vs 2/2 to increase in cardiac demand in setting of sepsis -PT never had CP OSH w/u -EKG --T wave changes in lateral leads -Elevated troponin I, Ck MB WNL -ECHO/Doppler --> Segmental wall motion abnormalities, EF 50%, +2 MR & TR, RVSP 38, no shunt -CTA 07/26/2014 --> No PE, no aortic dissection, Diffuse pulmonary infiltrates, cardiomegaly with evidence of RSHF -Started on Heparin gtt RF: HTN, ex smoker, FH of CAD (father <60 years), Off statins for long time, till restarted in the OSH, denies DM Plan -Trend CE x3 -High intensity statins, Lipitor 80mg QD -Tight BP control -Will hold off heparin, given that the pt is CP free -ECHO -Depending on ECHO results will proceed with either NM stress test or LHC Last Assessment & Plan: PMR (polymyalgia rheumatica) 07/20/2013 05/21/2018 Polymyositis 09/29/2011 05/21/2018 Elevated blood pressure 09/09/201111/04 Chronic pain 04/18/2011 11/06/2016 Last Assessment & Plan: Takes ultram for chronic pains, myalgias and joint pains. Takes 2 tabs qid. States this does help with her pains. Dysphagia 10/25/2010 12/01/2013 Hypokalemia 10/04/2010 12/01/2013 Left Plantar fasciitis 10/04/201012/01 Bipolar affective 04/27/2010 05/21/2018 Overview: Continue Diazepam 10mg BID CRI (chronic renal insufficiency) 09/30/2009 12/01/2013 ANEMIA BLOOD LOSS CHRONIC 12/23/2007 documented as of this encounter (statuses as of 09/27/2022) [facility] History of Past illness Narrative* Problem Noted Date Diagnosed Date Resolved Date Chronic obstructive pulmonary disease 12/26/2015 03/15/2016 Coronary artery disease invo lving [place] coronary artery of [place] heart with angina pectoris 12/26/2015 06/07/2017 Atypical chest pain 12/26/2015 06/08/19 18 Chronic right shoulder pain 07/14/2015 11/06/2016 SUMMARY 03/27/2015 10/25/2017 Overview: Leyda Lopez is a 54 year old female with COPD, asthma, sleep apnea, HTN, but no other previously known cardiac disease (echo 08/2014 showed normal LV function only mild MR and trivial TR with normal nuclear stress test) Now a transfer from OSH for due to Echo findings of severe MR and LHC with lesion of the ramus intermediate. She has been transferred to [facility] due to moderate disease in the ramus intermedius. NSTEMI (non-ST elevated myoc ardial infarction) 03/25/2015 05/21/2018 Overview: ASA 81 Atorvastatin 40 Lisinopril 40 Last Assessment & Plan: She takes the lisinopril the statin and the ASA. Neck pain, chronic 02/22/2015 7 Non-ST elevation myocardial infarction (NSTEMI), initial episode of care 08/04/20142018 Overview: -Pt transferred to [facility] for NSTEMI? In setting of EKG abnormality and elevated troponin I, thought to be primary ACS vs 2/2 to increase in cardiac demand in setting of sepsis -PT never had CP OSH w/u -EKG --T wave changes in lateral leads -Elevated troponin I, Ck MB WNL -ECHO/Doppler --> Segmental wall motion abnormalities, EF 50%, +2 MR & TR, RVSP 38, no shunt -CTA 07/26/2014 --> No PE, no aortic dissection, Diffuse pulmonary infiltrates, cardiomegaly with evidence of RSHF -Started on Heparin gtt RF: HTN, ex smoker, FH of CAD (father <60 years), Off statins for long time, till restarted in the OSH, denies DM Plan -Trend CE x3 -High intensity statins, Lipitor 80mg QD -Tight BP control -Will hold off heparin, given that the pt is CP free -ECHO -Depending on ECHO results will proceed with either NM stress test or LHC Last Assessment & Plan: PMR (polymyalgia rheumatica) 07/20/2013 05/21/2018 Polymyositis 09/29/2011 05/21/2018 Elevated blood pressure 09/09/201111/04 Chronic pain 04/18/2011 11/06/2016 Last Assessment & Plan: Takes ultram for chronic pains, myalgias and joint pains. Takes 2 tabs qid. States this does help with her pains. Dysphagia 10/25/2010 12/01/2013 Hypokalemia 10/04/2010 12/01/2013 Left Plantar fasciitis 10/04/201012/01 Bipolar affective 04/27/2010 05/21/2018 Overview: Continue Diazepam 10mg BID CRI (chronic renal insufficiency) 09/30/2009 12/01/2013 ANEMIA BLOOD LOSS CHRONIC 12/23/2007 documented as of this encounter (statuses as of 09/28/2022) [facility] History of Past illness Narrative* Problem Noted Date Diagnosed Date Resolved Date Chronic obstructive pulmonary disease 12/26/2015 03/15/2016 Coronary artery disease invo lving [place] coronary artery of [place] heart with angina pectoris 12/26/2015 06/07/2017 Atypical chest pain 12/26/2015 06/08/19 18 Chronic right shoulder pain 07/14/2015 11/06/2016 SUMMARY 03/27/2015 10/25/2017 Overview: Leyda Lopez is a 54 year old female with COPD, asthma, sleep apnea, HTN, but no other previously known cardiac disease (echo 08/2014 showed normal LV function only mild MR and trivial TR with normal nuclear stress test) Now a transfer from OSH for due to Echo findings of severe MR and LHC with lesion of the ramus intermediate. She has been transferred to [facility] due to moderate disease in the ramus intermedius. NSTEMI (non-ST elevated myoc ardial infarction) 03/25/2015 05/21/2018 Overview: ASA 81 Atorvastatin 40 Lisinopril 40 Last Assessment & Plan: She takes the lisinopril the statin and the ASA. Neck pain, chronic 02/22/2015 7 Non-ST elevation myocardial infarction (NSTEMI), initial episode of care 08/04/20142018 Overview: -Pt transferred to [facility] for NSTEMI? In setting of EKG abnormality and elevated troponin I, thought to be primary ACS vs 2/2 to increase in cardiac demand in setting of sepsis -PT never had CP OSH w/u -EKG --T wave changes in lateral leads -Elevated troponin I, Ck MB WNL -ECHO/Doppler --> Segmental wall motion abnormalities, EF 50%, +2 MR & TR, RVSP 38, no shunt -CTA 07/26/2014 --> No PE, no aortic dissection, Diffuse pulmonary infiltrates, cardiomegaly with evidence of RSHF -Started on Heparin gtt RF: HTN, ex smoker, FH of CAD (father <60 years), Off statins for long time, till restarted in the OSH, denies DM Plan -Trend CE x3 -High intensity statins, Lipitor 80mg QD -Tight BP control -Will hold off heparin, given that the pt is CP free -ECHO -Depending on ECHO results will proceed with either NM stress test or LHC Last Assessment & Plan: PMR (polymyalgia rheumatica) 07/20/2013 05/21/2018 Polymyositis 09/29/2011 05/21/2018 Elevated blood pressure 09/09/201111/04 Chronic pain 04/18/2011 11/06/2016 Last Assessment & Plan: Takes ultram for chronic pains, myalgias and joint pains. Takes 2 tabs qid. States this does help with her pains. Dysphagia 10/25/2010 12/01/2013 Hypokalemia 10/04/2010 12/01/2013 Left Plantar fasciitis 10/04/201012/01 Bipolar affective 04/27/2010 05/21/2018 Overview: Continue Diazepam 10mg BID CRI (chronic renal insufficiency) 09/30/2009 12/01/2013 ANEMIA BLOOD LOSS CHRONIC 12/23/2007 documented as of this encounter (statuses as of 10/01/2022) [facility] History of Past illness Narrative* Problem Noted Date Diagnosed Date Resolved Date Chronic obstructive pulmonary disease 12/26/2015 03/15/2016 Coronary artery disease invo lving [place] coronary artery of [place] heart with angina pectoris 12/26/2015 06/07/2017 Atypical chest pain 12/26/2015 06/08/19 18 Chronic right shoulder pain 07/14/2015 11/06/2016 SUMMARY 03/27/2015 10/25/2017 Overview: Leyda Lopez is a 54 year old female with COPD, asthma, sleep apnea, HTN, but no other previously known cardiac disease (echo 08/2014 showed normal LV function only mild MR and trivial TR with normal nuclear stress test) Now a transfer from OSH for due to Echo findings of severe MR and LHC with lesion of the ramus intermediate. She has been transferred to [facility] due to moderate disease in the ramus intermedius. NSTEMI (non-ST elevated myoc ardial infarction) 03/25/2015 05/21/2018 Overview: ASA 81 Atorvastatin 40 Lisinopril 40 Last Assessment & Plan: She takes the lisinopril the statin and the ASA. Neck pain, chronic 02/22/2015 7 Non-ST elevation myocardial infarction (NSTEMI), initial episode of care 08/04/20142018 Overview: -Pt transferred to [facility] for NSTEMI? In setting of EKG abnormality and elevated troponin I, thought to be primary ACS vs 2/2 to increase in cardiac demand in setting of sepsis -PT never had CP OSH w/u -EKG --T wave changes in lateral leads -Elevated troponin I, Ck MB WNL -ECHO/Doppler --> Segmental wall motion abnormalities, EF 50%, +2 MR & TR, RVSP 38, no shunt -CTA 07/26/2014 --> No PE, no aortic dissection, Diffuse pulmonary infiltrates, cardiomegaly with evidence of RSHF -Started on Heparin gtt RF: HTN, ex smoker, FH of CAD (father <60 years), Off statins for long time, till restarted in the OSH, denies DM Plan -Trend CE x3 -High intensity statins, Lipitor 80mg QD -Tight BP control -Will hold off heparin, given that the pt is CP free -ECHO -Depending on ECHO results will proceed with either NM stress test or LHC Last Assessment & Plan: PMR (polymyalgia rheumatica) 07/20/2013 05/21/2018 Polymyositis 09/29/2011 05/21/2018 Elevated blood pressure 09/09/201111/04 Chronic pain 04/18/2011 11/06/2016 Last Assessment & Plan: Takes ultram for chronic pains, myalgias and joint pains. Takes 2 tabs qid. States this does help with her pains. Dysphagia 10/25/2010 12/01/2013 Hypokalemia 10/04/2010 12/01/2013 Left Plantar fasciitis 10/04/201012/01 Bipolar affective 04/27/2010 05/21/2018 Overview: Continue Diazepam 10mg BID CRI (chronic renal insufficiency) 09/30/2009 12/01/2013 ANEMIA BLOOD LOSS CHRONIC 12/23/2007 documented as of this encounter (statuses as of 10/01/2022) [facility] History of Past illness Narrative* Problem Noted Date Diagnosed Date Resolved Date Chronic obstructive pulmonary disease 12/26/2015 03/15/2016 Coronary artery disease invo lving [place] coronary artery of [place] heart with angina pectoris 12/26/2015 06/07/2017 Atypical chest pain 12/26/2015 06/08/19 18 Chronic right shoulder pain 07/14/2015 11/06/2016 SUMMARY 03/27/2015 10/25/2017 Overview: Leyda Lopez is a 54 year old female with COPD, asthma, sleep apnea, HTN, but no other previously known cardiac disease (echo 08/2014 showed normal LV function only mild MR and trivial TR with normal nuclear stress test) Now a transfer from OSH for due to Echo findings of severe MR and LHC with lesion of the ramus intermediate. She has been transferred to [facility] due to moderate disease in the ramus intermedius. NSTEMI (non-ST elevated myoc ardial infarction) 03/25/2015 05/21/2018 Overview: ASA 81 Atorvastatin 40 Lisinopril 40 Last Assessment & Plan: She takes the lisinopril the statin and the ASA. Neck pain, chronic 02/22/2015 09/05/201 7 Non-ST elevation myocardial infarction (NSTEMI), initial episode of care 08/04/20142018 Overview: -Pt transferred to [facility] for NSTEMI? In setting of EKG abnormality and elevated troponin I, thought to be primary ACS vs 2/2 to increase in cardiac demand in setting of sepsis -PT never had CP OSH w/u -EKG --T wave changes in lateral leads -Elevated troponin I, Ck MB WNL -ECHO/Doppler --> Segmental wall motion abnormalities, EF 50%, +2 MR & TR, RVSP 38, no shunt -CTA 07/26/2014 --> No PE, no aortic dissection, Diffuse pulmonary infiltrates, cardiomegaly with evidence of RSHF -Started on Heparin gtt RF: HTN, ex smoker, FH of CAD (father <60 years), Off statins for long time, till restarted in the OSH, denies DM Plan -Trend CE x3 -High intensity statins, Lipitor 80mg QD -Tight BP control -Will hold off heparin, given that the pt is CP free -ECHO -Depending on ECHO results will proceed with either NM stress test or LHC Last Assessment & Plan: PMR (polymyalgia rheumatica) 07/20/2013 05/21/2018 Polymyositis 09/29/2011 05/21/2018 Elevated blood pressure 09/09/201111/04 Chronic pain 04/18/2011 11/06/2016 Last Assessment & Plan: Takes ultram for chronic pains, myalgias and joint pains. Takes 2 tabs qid. States this does help with her pains. Dysphagia 10/25/2010 12/01/2013 Hypokalemia 10/04/2010 12/01/2013 Left Plantar fasciitis 10/04/201012/01 Bipolar affective 04/27/2010 05/21/2018 Overview: Continue Diazepam 10mg BID CRI (chronic renal insufficiency) 09/30/2009 12/01/2013 ANEMIA BLOOD LOSS CHRONIC 12/23/2007 documented as of this encounter (statuses as of 10/03/2022) [facility] History of Past illness Narrative* Problem Noted Date Diagnosed Date Resolved Date Chronic obstructive pulmonary disease 12/26/2015 03/15/2016 Coronary artery disease invo lving [place] coronary artery of [place] heart with angina pectoris 12/26/2015 06/07/2017 Atypical chest pain 12/26/2015 06/08/19 18 Chronic right shoulder pain 07/14/2015 11/06/2016 SUMMARY 03/27/2015 10/25/2017 Overview: Leyda Lopez is a 54 year old female with COPD, asthma, sleep apnea, HTN, but no other previously known cardiac disease (echo 08/2014 showed normal LV function only mild MR and trivial TR with normal nuclear stress test) Now a transfer from OSH for due to Echo findings of severe MR and LHC with lesion of the ramus intermediate. She has been transferred to [facility] due to moderate disease in the ramus intermedius. NSTEMI (non-ST elevated myoc ardial infarction) 03/25/2015 05/21/2018 Overview: ASA 81 Atorvastatin 40 Lisinopril 40 Last Assessment & Plan: She takes the lisinopril the statin and the ASA. Neck pain, chronic 02/22/2015 7 Non-ST elevation myocardial infarction (NSTEMI), initial episode of care 08/04/20142018 Overview: -Pt transferred to [facility] for NSTEMI? In setting of EKG abnormality and elevated troponin I, thought to be primary ACS vs 2/2 to increase in cardiac demand in setting of sepsis -PT never had CP OSH w/u -EKG --T wave changes in lateral leads -Elevated troponin I, Ck MB WNL -ECHO/Doppler --> Segmental wall motion abnormalities, EF 50%, +2 MR & TR, RVSP 38, no shunt -CTA 07/26/2014 --> No PE, no aortic dissection, Diffuse pulmonary infiltrates, cardiomegaly with evidence of RSHF -Started on Heparin gtt RF: HTN, ex smoker, FH of CAD (father <60 years), Off statins for long time, till restarted in the OSH, denies DM Plan -Trend CE x3 -High intensity statins, Lipitor 80mg QD -Tight BP control -Will hold off heparin, given that the pt is CP free -ECHO -Depending on ECHO results will proceed with either NM stress test or LHC Last Assessment & Plan: PMR (polymyalgia rheumatica) 07/20/2013 05/21/2018 Polymyositis 09/29/2011 05/21/2018 Elevated blood pressure 09/09/201111/04 Chronic pain 04/18/2011 11/06/2016 Last Assessment & Plan: Takes ultram for chronic pains, myalgias and joint pains. Takes 2 tabs qid. States this does help with her pains. Dysphagia 10/25/2010 12/01/2013 Hypokalemia 10/04/2010 12/01/2013 Left Plantar fasciitis 10/04/201012/01 Bipolar affective 04/27/2010 05/21/2018 Overview: Continue Diazepam 10mg BID CRI (chronic renal insufficiency) 09/30/2009 12/01/2013 ANEMIA BLOOD LOSS CHRONIC 12/23/2007 documented as of this encounter (statuses as of 10/05/2022) [facility] History of Past illness Narrative* Problem Noted Date Diagnosed Date Resolved Date Chronic obstructive pulmonary disease 12/26/2015 03/15/2016 Coronary artery disease invo lving [place] coronary artery of [place] heart with angina pectoris 12/26/2015 06/07/2017 Atypical chest pain 12/26/2015 06/08/19 18 Chronic right shoulder pain 07/14/2015 11/06/2016 SUMMARY 03/27/2015 10/25/2017 Overview: Leyda Lopez is a 54 year old female with COPD, asthma, sleep apnea, HTN, but no other previously known cardiac disease (echo 08/2014 showed normal LV function only mild MR and trivial TR with normal nuclear stress test) Now a transfer from OSH for due to Echo findings of severe MR and LHC with lesion of the ramus intermediate. She has been transferred to [facility] due to moderate disease in the ramus intermedius. NSTEMI (non-ST elevated myoc ardial infarction) 03/25/2015 05/21/2018 Overview: ASA 81 Atorvastatin 40 Lisinopril 40 Last Assessment & Plan: She takes the lisinopril the statin and the ASA. Neck pain, chronic 02/22/2015 7 Non-ST elevation myocardial infarction (NSTEMI), initial episode of care 08/04/20142018 Overview: -Pt transferred to [facility] for NSTEMI? In setting of EKG abnormality and elevated troponin I, thought to be primary ACS vs 2/2 to increase in cardiac demand in setting of sepsis -PT never had CP OSH w/u -EKG --T wave changes in lateral leads -Elevated troponin I, Ck MB WNL -ECHO/Doppler --> Segmental wall motion abnormalities, EF 50%, +2 MR & TR, RVSP 38, no shunt -CTA 07/26/2014 --> No PE, no aortic dissection, Diffuse pulmonary infiltrates, cardiomegaly with evidence of RSHF -Started on Heparin gtt RF: HTN, ex smoker, FH of CAD (father <60 years), Off statins for long time, till restarted in the OSH, denies DM Plan -Trend CE x3 -High intensity statins, Lipitor 80mg QD -Tight BP control -Will hold off heparin, given that the pt is CP free -ECHO -Depending on ECHO results will proceed with either NM stress test or LHC Last Assessment & Plan: PMR (polymyalgia rheumatica) 07/20/2013 05/21/2018 Polymyositis 09/29/2011 05/21/2018 Elevated blood pressure 09/09/201111/04 Chronic pain 04/18/2011 11/06/2016 Last Assessment & Plan: Takes ultram for chronic pains, myalgias and joint pains. Takes 2 tabs qid. States this does help with her pains. Dysphagia 10/25/2010 12/01/2013 Hypokalemia 10/04/2010 12/01/2013 Left Plantar fasciitis 10/04/201012/01 Bipolar affective 04/27/2010 05/21/2018 Overview: Continue Diazepam 10mg BID CRI (chronic renal insufficiency) 09/30/2009 12/01/2013 ANEMIA BLOOD LOSS CHRONIC 12/23/2007 documented as of this encounter (statuses as of 10/06/2022) [facility] History of Past illness Narrative* Problem Noted Date Diagnosed Date Resolved Date Chronic obstructive pulmonary disease 12/26/2015 03/15/2016 Coronary artery disease invo lving [place] coronary artery of [place] heart with angina pectoris 12/26/2015 06/07/2017 Atypical chest pain 12/26/2015 06/08/19 18 Chronic right shoulder pain 07/14/2015 11/06/2016 SUMMARY 03/27/2015 10/25/2017 Overview: Leyda Lopez is a 54 year old female with COPD, asthma, sleep apnea, HTN, but no other previously known cardiac disease (echo 08/2014 showed normal LV function only mild MR and trivial TR with normal nuclear stress test) Now a transfer from OSH for due to Echo findings of severe MR and LHC with lesion of the ramus intermediate. She has been transferred to [facility] due to moderate disease in the ramus intermedius. NSTEMI (non-ST elevated myoc ardial infarction) 03/25/2015 05/21/2018 Overview: ASA 81 Atorvastatin 40 Lisinopril 40 Last Assessment & Plan: She takes the lisinopril the statin and the ASA. Neck pain, chronic 02/22/2015 7 Non-ST elevation myocardial infarction (NSTEMI), initial episode of care 08/04/20142018 Overview: -Pt transferred to [facility] for NSTEMI? In setting of EKG abnormality and elevated troponin I, thought to be primary ACS vs 2/2 to increase in cardiac demand in setting of sepsis -PT never had CP OSH w/u -EKG --T wave changes in lateral leads -Elevated troponin I, Ck MB WNL -ECHO/Doppler --> Segmental wall motion abnormalities, EF 50%, +2 MR & TR, RVSP 38, no shunt -CTA 07/26/2014 --> No PE, no aortic dissection, Diffuse pulmonary infiltrates, cardiomegaly with evidence of RSHF -Started on Heparin gtt RF: HTN, ex smoker, FH of CAD (father <60 years), Off statins for long time, till restarted in the OSH, denies DM Plan -Trend CE x3 -High intensity statins, Lipitor 80mg QD -Tight BP control -Will hold off heparin, given that the pt is CP free -ECHO -Depending on ECHO results will proceed with either NM stress test or LHC Last Assessment & Plan: PMR (polymyalgia rheumatica) 07/20/2013 05/21/2018 Polymyositis 09/29/2011 05/21/2018 Elevated blood pressure 09/09/201111/04 Chronic pain 04/18/2011 11/06/2016 Last Assessment & Plan: Takes ultram for chronic pains, myalgias and joint pains. Takes 2 tabs qid. States this does help with her pains. Dysphagia 10/25/2010 12/01/2013 Hypokalemia 10/04/2010 12/01/2013 Left Plantar fasciitis 10/04/201012/01 Bipolar affective 04/27/2010 05/21/2018 Overview: Continue Diazepam 10mg BID CRI (chronic renal insufficiency) 09/30/2009 12/01/2013 ANEMIA BLOOD LOSS CHRONIC 12/23/2007 documented as of this encounter (statuses as of 10/08/2022) [facility] History of Past illness Narrative* Problem Noted Date Diagnosed Date Resolved Date Chronic obstructive pulmonary disease 12/26/2015 03/15/2016 Coronary artery disease invo lving [place] coronary artery of [place] heart with angina pectoris 12/26/2015 06/07/2017 Atypical chest pain 12/26/2015 06/08/19 18 Chronic right shoulder pain 07/14/2015 11/06/2016 SUMMARY 03/27/2015 10/25/2017 Overview: Leyda Lopez is a 54 year old female with COPD, asthma, sleep apnea, HTN, but no other previously known cardiac disease (echo 08/2014 showed normal LV function only mild MR and trivial TR with normal nuclear stress test) Now a transfer from [facility]SH for due to Echo findings of severe MR and LHC with lesion of the ramus intermediate. She has been transferred to [facility] due to moderate disease in the ramus intermedius. NSTEMI (non-ST elevated myoc ardial infarction) 03/25/2015 05/21/2018 Overview: ASA 81 Atorvastatin 40 Lisinopril 40 Last Assessment & Plan: She takes the lisinopril the statin and the ASA. Neck pain, chronic 02/22/2015 7 Non-ST elevation myocardial infarction (NSTEMI), initial episode of care 08/04/20142018 Overview: -Pt transferred to [facility] for NSTEMI? In setting of EKG abnormality and elevated troponin I, thought to be primary ACS vs 2/2 to increase in cardiac demand in setting of sepsis -PT never had CP OSH w/u -EKG --T wave changes in lateral leads -Elevated troponin I, Ck MB WNL -ECHO/Doppler --> Segmental wall motion abnormalities, EF 50%, +2 MR & TR, RVSP 38, no shunt -CTA 07/26/2014 --> No PE, no aortic dissection, Diffuse pulmonary infiltrates, cardiomegaly with evidence of RSHF -Started on Heparin gtt RF: HTN, ex smoker, FH of CAD (father <60 years), Off statins for long time, till restarted in the OSH, denies DM Plan -Trend CE x3 -High intensity statins, Lipitor 80mg QD -Tight BP control -Will hold off heparin, given that the pt is CP free -ECHO -Depending on ECHO results will proceed with either NM stress test or LHC Last Assessment & Plan: PMR (polymyalgia rheumatica) 07/20/2013 05/21/2018 Polymyositis 09/29/2011 05/21/2018 Elevated blood pressure 09/09/201111/04 Chronic pain 04/18/2011 11/06/2016 Last Assessment & Plan: Takes ultram for chronic pains, myalgias and joint pains. Takes 2 tabs qid. States this does help with her pains. Dysphagia 10/25/2010 12/01/2013 Hypokalemia 10/04/2010 12/01/2013 Left Plantar fasciitis 10/04/201012/01 Bipolar affective 04/27/2010 05/21/2018 Overview: Continue Diazepam 10mg BID CRI (chronic renal insufficiency) 09/30/2009 12/01/2013 ANEMIA BLOOD LOSS CHRONIC 12/23/2007 documented as of this encounter (statuses as of 10/08/2022) [facility] History of Past illness Narrative* Problem Noted Date Diagnosed Date Resolved Date Chronic obstructive pulmonary disease 12/26/2015 03/15/2016 Coronary artery disease invo lving [place] coronary artery of [place] heart with angina pectoris 12/26/2015 06/07/2017 Atypical chest pain 12/26/2015 06/08/19 18 Chronic right shoulder pain 07/14/2015 11/06/2016 SUMMARY 03/27/2015 10/25/2017 Overview: Leyda Lopez is a 54 year old female with COPD, asthma, sleep apnea, HTN, but no other previously known cardiac disease (echo 08/2014 showed normal LV function only mild MR and trivial TR with normal nuclear stress test) Now a transfer from OSH for due to Echo findings of severe MR and LHC with lesion of the ramus intermediate. She has been transferred to [facility] due to moderate disease in the ramus intermedius. NSTEMI (non-ST elevated myoc ardial infarction) 03/25/2015 05/21/2018 Overview: ASA 81 Atorvastatin 40 Lisinopril 40 Last Assessment & Plan: She takes the lisinopril the statin and the ASA. Neck pain, chronic 02/22/2015 7 Non-ST elevation myocardial infarction (NSTEMI), initial episode of care 08/04/20142018 Overview: -Pt transferred to [facility] for NSTEMI? In setting of EKG abnormality and elevated troponin I, thought to be primary ACS vs 2/2 to increase in cardiac demand in setting of sepsis -PT never had CP OSH w/u -EKG --T wave changes in lateral leads -Elevated troponin I, Ck MB WNL -ECHO/Doppler --> Segmental wall motion abnormalities, EF 50%, +2 MR & TR, RVSP 38, no shunt -CTA 07/26/2014 --> No PE, no aortic dissection, Diffuse pulmonary infiltrates, cardiomegaly with evidence of RSHF -Started on Heparin gtt RF: HTN, ex smoker, FH of CAD (father <60 years), Off statins for long time, till restarted in the OSH, denies DM Plan -Trend CE x3 -High intensity statins, Lipitor 80mg QD -Tight BP control -Will hold off heparin, given that the pt is CP free -ECHO -Depending on ECHO results will proceed with either NM stress test or LHC Last Assessment & Plan: PMR (polymyalgia rheumatica) 07/20/2013 05/21/2018 Polymyositis 09/29/2011 05/21/2018 Elevated blood pressure 09/09/201111/04 Chronic pain 04/18/2011 11/06/2016 Last Assessment & Plan: Takes ultram for chronic pains, myalgias and joint pains. Takes 2 tabs qid. States this does help with her pains. Dysphagia 10/25/2010 12/01/2013 Hypokalemia 10/04/2010 12/01/2013 Left Plantar fasciitis 10/04/201012/01 Bipolar affective 04/27/2010 05/21/2018 Overview: Continue Diazepam 10mg BID CRI (chronic renal insufficiency) 09/30/2009 12/01/2013 ANEMIA BLOOD LOSS CHRONIC 12/23/2007 documented as of this encounter (statuses as of 10/10/2022) [facility] History of Past illness Narrative* Problem Noted Date Diagnosed Date Resolved Date Chronic obstructive pulmonary disease 12/26/2015 03/15/2016 Coronary artery disease invo lving [place] coronary artery of [place] heart with angina pectoris 12/26/2015 06/07/2017 Atypical chest pain 12/26/2015 06/08/19 18 Chronic right shoulder pain 07/14/2015 11/06/2016 SUMMARY 03/27/2015 10/25/2017 Overview: Leyda Lopez is a 54 year old female with COPD, asthma, sleep apnea, HTN, but no other previously known cardiac disease (echo 08/2014 showed normal LV function only mild MR and trivial TR with normal nuclear stress test) Now a transfer from OSH for due to Echo findings of severe MR and LHC with lesion of the ramus intermediate. She has been transferred to [facility] due to moderate disease in the ramus intermedius. NSTEMI (non-ST elevated myoc ardial infarction) 03/25/2015 05/21/2018 Overview: ASA 81 Atorvastatin 40 Lisinopril 40 Last Assessment & Plan: She takes the lisinopril the statin and the ASA. Neck pain, chronic 02/22/2015 7 Non-ST elevation myocardial infarction (NSTEMI), initial episode of care 08/04/20142018 Overview: -Pt transferred to [facility] for NSTEMI? In setting of EKG abnormality and elevated troponin I, thought to be primary ACS vs 2/2 to increase in cardiac demand in setting of sepsis -PT never had CP OSH w/u -EKG --T wave changes in lateral leads -Elevated troponin I, Ck MB WNL -ECHO/Doppler --> Segmental wall motion abnormalities, EF 50%, +2 MR & TR, RVSP 38, no shunt -CTA 07/26/2014 --> No PE, no aortic dissection, Diffuse pulmonary infiltrates, cardiomegaly with evidence of RSHF -Started on Heparin gtt RF: HTN, ex smoker, FH of CAD (father <60 years), Off statins for long time, till restarted in the OSH, denies DM Plan -Trend CE x3 -High intensity statins, Lipitor 80mg QD -Tight BP control -Will hold off heparin, given that the pt is CP free -ECHO -Depending on ECHO results will proceed with either NM stress test or LHC Last Assessment & Plan: PMR (polymyalgia rheumatica) 07/20/2013 05/21/2018 Polymyositis 09/29/2011 05/21/2018 Elevated blood pressure 09/09/201111/04 Chronic pain 04/18/2011 11/06/2016 Last Assessment & Plan: Takes ultram for chronic pains, myalgias and joint pains. Takes 2 tabs qid. States this does help with her pains. Dysphagia 10/25/2010 12/01/2013 Hypokalemia 10/04/2010 12/01/2013 Left Plantar fasciitis 10/04/201012/01 Bipolar affective 04/27/2010 05/21/2018 Overview: Continue Diazepam 10mg BID CRI (chronic renal insufficiency) 09/30/2009 12/01/2013 ANEMIA BLOOD LOSS CHRONIC 12/23/2007 documented as of this encounter (statuses as of 10/15/2022) [facility] History of Past illness Narrative* Problem Noted Date Diagnosed Date Resolved Date Chronic obstructive pulmonary disease 12/26/2015 03/15/2016 Coronary artery disease invo lving [place] coronary artery of [place] heart with angina pectoris 12/26/2015 06/07/2017 Atypical chest pain 12/26/2015 06/08/19 18 Chronic right shoulder pain 07/14/2015 11/06/2016 SUMMARY 03/27/2015 10/25/2017 Overview: Leyda Lopez is a 54 year old female with COPD, asthma, sleep apnea, HTN, but no other previously known cardiac disease (echo 08/2014 showed normal LV function only mild MR and trivial TR with normal nuclear stress test) Now a transfer from OSH for due to Echo findings of severe MR and LHC with lesion of the ramus intermediate. She has been transferred to [facility] due to moderate disease in the ramus intermedius. NSTEMI (non-ST elevated myoc ardial infarction) 03/25/2015 05/21/2018 Overview: ASA 81 Atorvastatin 40 Lisinopril 40 Last Assessment & Plan: She takes the lisinopril the statin and the ASA. Neck pain, chronic 02/22/2015 7 Non-ST elevation myocardial infarction (NSTEMI), initial episode of care 08/04/20142018 Overview: -Pt transferred to [facility] for NSTEMI? In setting of EKG abnormality and elevated troponin I, thought to be primary ACS vs 2/2 to increase in cardiac demand in setting of sepsis -PT never had CP OSH w/u -EKG --T wave changes in lateral leads -Elevated troponin I, Ck MB WNL -ECHO/Doppler --> Segmental wall motion abnormalities, EF 50%, +2 MR & TR, RVSP 38, no shunt -CTA 07/26/2014 --> No PE, no aortic dissection, Diffuse pulmonary infiltrates, cardiomegaly with evidence of RSHF -Started on Heparin gtt RF: HTN, ex smoker, FH of CAD (father <60 years), Off statins for long time, till restarted in the OSH, denies DM Plan -Trend CE x3 -High intensity statins, Lipitor 80mg QD -Tight BP control -Will hold off heparin, given that the pt is CP free -ECHO -Depending on ECHO results will proceed with either NM stress test or LHC Last Assessment & Plan: PMR (polymyalgia rheumatica) 07/20/2013 05/21/2018 Polymyositis 09/29/2011 05/21/2018 Elevated blood pressure 09/09/201111/04 Chronic pain 04/18/2011 11/06/2016 Last Assessment & Plan: Takes ultram for chronic pains, myalgias and joint pains. Takes 2 tabs qid. States this does help with her pains. Dysphagia 10/25/2010 12/01/2013 Hypokalemia 10/04/2010 12/01/2013 Left Plantar fasciitis 10/04/201012/01 Bipolar affective 04/27/2010 05/21/2018 Overview: Continue Diazepam 10mg BID CRI (chronic renal insufficiency) 09/30/2009 12/01/2013 ANEMIA BLOOD LOSS CHRONIC 12/23/2007 documented as of this encounter (statuses as of 10/24/2022) [facility] History of Past illness Narrative* Problem Noted Date Diagnosed Date Resolved Date Chronic obstructive pulmonary disease 12/26/2015 03/15/2016 Coronary artery disease invo lving [place] coronary artery of [place] heart with angina pectoris 12/26/2015 06/07/2017 Atypical chest pain 12/26/2015 06/08/19 18 Chronic right shoulder pain 07/14/2015 11/06/2016 SUMMARY 03/27/2015 10/25/2017 Overview: Leyda Lopez is a 54 year old female with COPD, asthma, sleep apnea, HTN, but no other previously known cardiac disease (echo 08/2014 showed normal LV function only mild MR and trivial TR with normal nuclear stress test) Now a transfer from OSH for due to Echo findings of severe MR and LHC with lesion of the ramus intermediate. She has been transferred to [facility] due to moderate disease in the ramus intermedius. NSTEMI (non-ST elevated myoc ardial infarction) 03/25/2015 05/21/2018 Overview: ASA 81 Atorvastatin 40 Lisinopril 40 Last Assessment & Plan: She takes the lisinopril the statin and the ASA. Neck pain, chronic 02/22/2015 7 Non-ST elevation myocardial infarction (NSTEMI), initial episode of care 08/04/20142018 Overview: -Pt transferred to [facility] for NSTEMI? In setting of EKG abnormality and elevated troponin I, thought to be primary ACS vs 2/2 to increase in cardiac demand in setting of sepsis -PT never had CP OSH w/u -EKG --T wave changes in lateral leads -Elevated troponin I, Ck MB WNL -ECHO/Doppler --> Segmental wall motion abnormalities, EF 50%, +2 MR & TR, RVSP 38, no shunt -CTA 07/26/2014 --> No PE, no aortic dissection, Diffuse pulmonary infiltrates, cardiomegaly with evidence of RSHF -Started on Heparin gtt RF: HTN, ex smoker, FH of CAD (father <60 years), Off statins for long time, till restarted in the OSH, denies DM Plan -Trend CE x3 -High intensity statins, Lipitor 80mg QD -Tight BP control -Will hold off heparin, given that the pt is CP free -ECHO -Depending on ECHO results will proceed with either NM stress test or LHC Last Assessment & Plan: PMR (polymyalgia rheumatica) 07/20/2013 05/21/2018 Polymyositis 09/29/2011 05/21/2018 Elevated blood pressure 09/09/201111/04 Chronic pain 04/18/2011 11/06/2016 Last Assessment & Plan: Takes ultram for chronic pains, myalgias and joint pains. Takes 2 tabs qid. States this does help with her pains. Dysphagia 10/25/2010 12/01/2013 Hypokalemia 10/04/2010 12/01/2013 Left Plantar fasciitis 10/04/201012/01 Bipolar affective 04/27/2010 05/21/2018 Overview: Continue Diazepam 10mg BID CRI (chronic renal insufficiency) 09/30/2009 12/01/2013 ANEMIA BLOOD LOSS CHRONIC 12/23/2007 documented as of this encounter (statuses as of 10/25/2022) [facility] History of Past illness Narrative* Problem Noted Date Diagnosed Date Resolved Date Chronic obstructive pulmonary disease 12/26/2015 03/15/2016 Coronary artery disease invo lving [place] coronary artery of [place] heart with angina pectoris 12/26/2015 06/07/2017 Atypical chest pain 12/26/2015 06/08/19 18 Chronic right shoulder pain 07/14/2015 11/06/2016 SUMMARY 03/27/2015 10/25/2017 Overview: Leyda Lopez is a 54 year old female with COPD, asthma, sleep apnea, HTN, but no other previously known cardiac disease (echo 08/2014 showed normal LV function only mild MR and trivial TR with normal nuclear stress test) Now a transfer from OSH for due to Echo findings of severe MR and LHC with lesion of the ramus intermediate. She has been transferred to [facility] due to moderate disease in the ramus intermedius. NSTEMI (non-ST elevated myoc ardial infarction) 03/25/2015 05/21/2018 Overview: ASA 81 Atorvastatin 40 Lisinopril 40 Last Assessment & Plan: She takes the lisinopril the statin and the ASA. Neck pain, chronic 02/22/2015 7 Non-ST elevation myocardial infarction (NSTEMI), initial episode of care 08/04/20142018 Overview: -Pt transferred to [facility] for NSTEMI? In setting of EKG abnormality and elevated troponin I, thought to be primary ACS vs 2/2 to increase in cardiac demand in setting of sepsis -PT never had CP OSH w/u -EKG --T wave changes in lateral leads -Elevated troponin I, Ck MB WNL -ECHO/Doppler --> Segmental wall motion abnormalities, EF 50%, +2 MR & TR, RVSP 38, no shunt -CTA 07/26/2014 --> No PE, no aortic dissection, Diffuse pulmonary infiltrates, cardiomegaly with evidence of RSHF -Started on Heparin gtt RF: HTN, ex smoker, FH of CAD (father <60 years), Off statins for long time, till restarted in the OSH, denies DM Plan -Trend CE x3 -High intensity statins, Lipitor 80mg QD -Tight BP control -Will hold off heparin, given that the pt is CP free -ECHO -Depending on ECHO results will proceed with either NM stress test or LHC Last Assessment & Plan: PMR (polymyalgia rheumatica) 07/20/2013 05/21/2018 Polymyositis 09/29/2011 05/21/2018 Elevated blood pressure 09/09/201111/04 Chronic pain 04/18/2011 11/06/2016 Last Assessment & Plan: Takes ultram for chronic pains, myalgias and joint pains. Takes 2 tabs qid. States this does help with her pains. Dysphagia 10/25/2010 12/01/2013 Hypokalemia 10/04/2010 12/01/2013 Left Plantar fasciitis 10/04/201012/01 Bipolar affective 04/27/2010 05/21/2018 Overview: Continue Diazepam 10mg BID CRI (chronic renal insufficiency) 09/30/2009 12/01/2013 ANEMIA BLOOD LOSS CHRONIC 12/23/2007 documented as of this encounter (statuses as of 10/31/2022) [facility] History of Past illness Narrative* Problem Noted Date Diagnosed Date Resolved Date Chronic obstructive pulmonary disease 12/26/2015 03/15/2016 Coronary artery disease invo lving [place] coronary artery of [place] heart with angina pectoris 12/26/2015 06/07/2017 Atypical chest pain 12/26/2015 06/08/19 18 Chronic right shoulder pain 07/14/2015 11/06/2016 SUMMARY 03/27/2015 10/25/2017 Overview: Leyda Lopez is a 54 year old female with COPD, asthma, sleep apnea, HTN, but no other previously known cardiac disease (echo 08/2014 showed normal LV function only mild MR and trivial TR with normal nuclear stress test) Now a transfer from OSH for due to Echo findings of severe MR and LHC with lesion of the ramus intermediate. She has been transferred to [facility] due to moderate disease in the ramus intermedius. NSTEMI (non-ST elevated myoc ardial infarction) 03/25/2015 05/21/2018 Overview: ASA 81 Atorvastatin 40 Lisinopril 40 Last Assessment & Plan: She takes the lisinopril the statin and the ASA. Neck pain, chronic 02/22/2015 7 Non-ST elevation myocardial infarction (NSTEMI), initial episode of care 08/04/20142018 Overview: -Pt transferred to [facility] for NSTEMI? In setting of EKG abnormality and elevated troponin I, thought to be primary ACS vs 2/2 to increase in cardiac demand in setting of sepsis -PT never had CP OSH w/u -EKG --T wave changes in lateral leads -Elevated troponin I, Ck MB WNL -ECHO/Doppler --> Segmental wall motion abnormalities, EF 50%, +2 MR & TR, RVSP 38, no shunt -CTA 07/26/2014 --> No PE, no aortic dissection, Diffuse pulmonary infiltrates, cardiomegaly with evidence of RSHF -Started on Heparin gtt RF: HTN, ex smoker, FH of CAD (father <60 years), Off statins for long time, till restarted in the OSH, denies DM Plan -Trend CE x3 -High intensity statins, Lipitor 80mg QD -Tight BP control -Will hold off heparin, given that the pt is CP free -ECHO -Depending on ECHO results will proceed with either NM stress test or LHC Last Assessment & Plan: PMR (polymyalgia rheumatica) 07/20/2013 05/21/2018 Polymyositis 09/29/2011 05/21/2018 Elevated blood pressure 09/09/201111/04 Chronic pain 04/18/2011 11/06/2016 Last Assessment & Plan: Takes ultram for chronic pains, myalgias and joint pains. Takes 2 tabs qid. States this does help with her pains. Dysphagia 10/25/2010 12/01/2013 Hypokalemia 10/04/2010 12/01/2013 Left Plantar fasciitis 10/04/201012/01 Bipolar affective 04/27/2010 05/21/2018 Overview: Continue Diazepam 10mg BID CRI (chronic renal insufficiency) 09/30/2009 12/01/2013 ANEMIA BLOOD LOSS CHRONIC 12/23/2007 documented as of this encounter (statuses as of 11/01/2022) [facility] History of Past illness Narrative* Problem Noted Date Diagnosed Date Resolved Date Chronic obstructive pulmonary disease 12/26/2015 03/15/2016 Coronary artery disease invo lving [place] coronary artery of [place] heart with angina pectoris 12/26/2015 06/07/2017 Atypical chest pain 12/26/2015 06/08/19 18 Chronic right shoulder pain 07/14/2015 11/06/2016 SUMMARY 03/27/2015 10/25/2017 Overview: Leyda Lopez is a 54 year old female with COPD, asthma, sleep apnea, HTN, but no other previously known cardiac disease (echo 08/2014 showed normal LV function only mild MR and trivial TR with normal nuclear stress test) Now a transfer from OSH for due to Echo findings of severe MR and LHC with lesion of the ramus intermediate. She has been transferred to [facility] due to moderate disease in the ramus intermedius. NSTEMI (non-ST elevated myoc ardial infarction) 03/25/2015 05/21/2018 Overview: ASA 81 Atorvastatin 40 Lisinopril 40 Last Assessment & Plan: She takes the lisinopril the statin and the ASA. Neck pain, chronic 02/22/2015 7 Non-ST elevation myocardial infarction (NSTEMI), initial episode of care 08/04/20142018 Overview: -Pt transferred to [facility] for NSTEMI? In setting of EKG abnormality and elevated troponin I, thought to be primary ACS vs 2/2 to increase in cardiac demand in setting of sepsis -PT never had CP OSH w/u -EKG --T wave changes in lateral leads -Elevated troponin I, Ck MB WNL -ECHO/Doppler --> Segmental wall motion abnormalities, EF 50%, +2 MR & TR, RVSP 38, no shunt -CTA 07/26/2014 --> No PE, no aortic dissection, Diffuse pulmonary infiltrates, cardiomegaly with evidence of RSHF -Started on Heparin gtt RF: HTN, ex smoker, FH of CAD (father <60 years), Off statins for long time, till restarted in the OSH, denies DM Plan -Trend CE x3 -High intensity statins, Lipitor 80mg QD -Tight BP control -Will hold off heparin, given that the pt is CP free -ECHO -Depending on ECHO results will proceed with either NM stress test or LHC Last Assessment & Plan: PMR (polymyalgia rheumatica) 07/20/2013 05/21/2018 Polymyositis 09/29/2011 05/21/2018 Elevated blood pressure 09/09/201111/04 Chronic pain 04/18/2011 11/06/2016 Last Assessment & Plan: Takes ultram for chronic pains, myalgias and joint pains. Takes 2 tabs qid. States this does help with her pains. Dysphagia 10/25/2010 12/01/2013 Hypokalemia 10/04/2010 12/01/2013 Left Plantar fasciitis 10/04/201012/01 Bipolar affective 04/27/2010 05/21/2018 Overview: Continue Diazepam 10mg BID CRI (chronic renal insufficiency) 09/30/2009 12/01/2013 ANEMIA BLOOD LOSS CHRONIC 12/23/2007 documented as of this encounter (statuses as of 11/06/2022) [facility] History of Past illness Narrative* Problem Noted Date Diagnosed Date Resolved Date Chronic obstructive pulmonary disease 12/26/2015 03/15/2016 Coronary artery disease invo lving [place] coronary artery of [place] heart with angina pectoris 12/26/2015 06/07/2017 Atypical chest pain 12/26/2015 06/08/19 18 Chronic right shoulder pain 07/14/2015 11/06/2016 SUMMARY 03/27/2015 10/25/2017 Overview: Leyda Lopez is a 54 year old female with COPD, asthma, sleep apnea, HTN, but no other previously known cardiac disease (echo 08/2014 showed normal LV function only mild MR and trivial TR with normal nuclear stress test) Now a transfer from OSH for due to Echo findings of severe MR and LHC with lesion of the ramus intermediate. She has been transferred to [facility] due to moderate disease in the ramus intermedius. NSTEMI (non-ST elevated myoc ardial infarction) 03/25/2015 05/21/2018 Overview: ASA 81 Atorvastatin 40 Lisinopril 40 Last Assessment & Plan: She takes the lisinopril the statin and the ASA. Neck pain, chronic 02/22/2015 7 Non-ST elevation myocardial infarction (NSTEMI), initial episode of care 08/04/20142018 Overview: -Pt transferred to [facility] for NSTEMI? In setting of EKG abnormality and elevated troponin I, thought to be primary ACS vs 2/2 to increase in cardiac demand in setting of sepsis -PT never had CP OSH w/u -EKG --T wave changes in lateral leads -Elevated troponin I, Ck MB WNL -ECHO/Doppler --> Segmental wall motion abnormalities, EF 50%, +2 MR & TR, RVSP 38, no shunt -CTA 07/26/2014 --> No PE, no aortic dissection, Diffuse pulmonary infiltrates, cardiomegaly with evidence of RSHF -Started on Heparin gtt RF: HTN, ex smoker, FH of CAD (father <60 years), Off statins for long time, till restarted in the OSH, denies DM Plan -Trend CE x3 -High intensity statins, Lipitor 80mg QD -Tight BP control -Will hold off heparin, given that the pt is CP free -ECHO -Depending on ECHO results will proceed with either NM stress test or LHC Last Assessment & Plan: PMR (polymyalgia rheumatica) 07/20/2013 05/21/2018 Polymyositis 09/29/2011 05/21/2018 Elevated blood pressure 09/09/201111/04 Chronic pain 04/18/2011 11/06/2016 Last Assessment & Plan: Takes ultram for chronic pains, myalgias and joint pains. Takes 2 tabs qid. States this does help with her pains. Dysphagia 10/25/2010 12/01/2013 Hypokalemia 10/04/2010 12/01/2013 Left Plantar fasciitis 10/04/201012/01 Bipolar affective 04/27/2010 05/21/2018 Overview: Continue Diazepam 10mg BID CRI (chronic renal insufficiency) 09/30/2009 12/01/2013 ANEMIA BLOOD LOSS CHRONIC 12/23/2007 documented as of this encounter (statuses as of 11/12/2022) [facility] History of Past illness Narrative* Problem Noted Date Diagnosed Date Resolved Date Chronic obstructive pulmonary disease 12/26/2015 03/15/2016 Coronary artery disease invo lving [place] coronary artery of [place] heart with angina pectoris 12/26/2015 06/07/2017 Atypical chest pain 12/26/2015 06/08/19 18 Chronic right shoulder pain 07/14/2015 11/06/2016 SUMMARY 03/27/2015 10/25/2017 Overview: Leyda Lopez is a 54 year old female with COPD, asthma, sleep apnea, HTN, but no other previously known cardiac disease (echo 08/2014 showed normal LV function only mild MR and trivial TR with normal nuclear stress test) Now a transfer from [facility]SH for due to Echo findings of severe MR and LHC with lesion of the ramus intermediate. She has been transferred to [facility] due to moderate disease in the ramus intermedius. NSTEMI (non-ST elevated myoc ardial infarction) 03/25/2015 05/21/2018 Overview: ASA 81 Atorvastatin 40 Lisinopril 40 Last Assessment & Plan: She takes the lisinopril the statin and the ASA. Neck pain, chronic 02/22/2015 7 Non-ST elevation myocardial infarction (NSTEMI), initial episode of care 08/04/20142018 Overview: -Pt transferred to [facility] for NSTEMI? In setting of EKG abnormality and elevated troponin I, thought to be primary ACS vs 2/2 to increase in cardiac demand in setting of sepsis -PT never had CP OSH w/u -EKG --T wave changes in lateral leads -Elevated troponin I, Ck MB WNL -ECHO/Doppler --> Segmental wall motion abnormalities, EF 50%, +2 MR & TR, RVSP 38, no shunt -CTA 07/26/2014 --> No PE, no aortic dissection, Diffuse pulmonary infiltrates, cardiomegaly with evidence of RSHF -Started on Heparin gtt RF: HTN, ex smoker, FH of CAD (father <60 years), Off statins for long time, till restarted in the OSH, denies DM Plan -Trend CE x3 -High intensity statins, Lipitor 80mg QD -Tight BP control -Will hold off heparin, given that the pt is CP free -ECHO -Depending on ECHO results will proceed with either NM stress test or LHC Last Assessment & Plan: PMR (polymyalgia rheumatica) 07/20/2013 05/21/2018 Polymyositis 09/29/2011 05/21/2018 Elevated blood pressure 09/09/201111/04 Chronic pain 04/18/2011 11/06/2016 Last Assessment & Plan: Takes ultram for chronic pains, myalgias and joint pains. Takes 2 tabs qid. States this does help with her pains. Dysphagia 10/25/2010 12/01/2013 Hypokalemia 10/04/2010 12/01/2013 Left Plantar fasciitis 10/04/201012/01 Bipolar affective 04/27/2010 05/21/2018 Overview: Continue Diazepam 10mg BID CRI (chronic renal insufficiency) 09/30/2009 12/01/2013 ANEMIA BLOOD LOSS CHRONIC 12/23/2007 documented as of this encounter (statuses as of 11/13/2022) [facility] History of Past illness Narrative* Problem Noted Date Diagnosed Date Resolved Date Chronic obstructive pulmonary disease 12/26/2015 03/15/2016 Coronary artery disease invo lving [place] coronary artery of [place] heart with angina pectoris 12/26/2015 06/07/2017 Atypical chest pain 12/26/2015 06/08/19 18 Chronic right shoulder pain 07/14/2015 11/06/2016 SUMMARY 03/27/2015 10/25/2017 Overview: Leyda Lopez is a 54 year old female with COPD, asthma, sleep apnea, HTN, but no other previously known cardiac disease (echo 08/2014 showed normal LV function only mild MR and trivial TR with normal nuclear stress test) Now a transfer from OSH for due to Echo findings of severe MR and LHC with lesion of the ramus intermediate. She has been transferred to [facility] due to moderate disease in the ramus intermedius. NSTEMI (non-ST elevated myoc ardial infarction) 03/25/2015 05/21/2018 Overview: ASA 81 Atorvastatin 40 Lisinopril 40 Last Assessment & Plan: She takes the lisinopril the statin and the ASA. Neck pain, chronic 02/22/2015 7 Non-ST elevation myocardial infarction (NSTEMI), initial episode of care 08/04/20142018 Overview: -Pt transferred to [facility] for NSTEMI? In setting of EKG abnormality and elevated troponin I, thought to be primary ACS vs 2/2 to increase in cardiac demand in setting of sepsis -PT never had CP OSH w/u -EKG --T wave changes in lateral leads -Elevated troponin I, Ck MB WNL -ECHO/Doppler --> Segmental wall motion abnormalities, EF 50%, +2 MR & TR, RVSP 38, no shunt -CTA 07/26/2014 --> No PE, no aortic dissection, Diffuse pulmonary infiltrates, cardiomegaly with evidence of RSHF -Started on Heparin gtt RF: HTN, ex smoker, FH of CAD (father <60 years), Off statins for long time, till restarted in the OSH, denies DM Plan -Trend CE x3 -High intensity statins, Lipitor 80mg QD -Tight BP control -Will hold off heparin, given that the pt is CP free -ECHO -Depending on ECHO results will proceed with either NM stress test or LHC Last Assessment & Plan: PMR (polymyalgia rheumatica) 07/20/2013 05/21/2018 Polymyositis 09/29/2011 05/21/2018 Elevated blood pressure 09/09/201111/04 Chronic pain 04/18/2011 11/06/2016 Last Assessment & Plan: Takes ultram for chronic pains, myalgias and joint pains. Takes 2 tabs qid. States this does help with her pains. Dysphagia 10/25/2010 12/01/2013 Hypokalemia 10/04/2010 12/01/2013 Left Plantar fasciitis 10/04/201012/01 Bipolar affective 04/27/2010 05/21/2018 Overview: Continue Diazepam 10mg BID CRI (chronic renal insufficiency) 09/30/2009 12/01/2013 ANEMIA BLOOD LOSS CHRONIC 12/23/2007 documented as of this encounter (statuses as of 11/14/2022) [facility] History of Past illness Narrative* Problem Noted Date Diagnosed Date Resolved Date Chronic obstructive pulmonary disease 12/26/2015 03/15/2016 Coronary artery disease invo lving [place] coronary artery of [place] heart with angina pectoris 12/26/2015 06/07/2017 Atypical chest pain 12/26/2015 06/08/19 18 Chronic right shoulder pain 07/14/2015 11/06/2016 SUMMARY 03/27/2015 10/25/2017 Overview: Leyda Lopez is a 54 year old female with COPD, asthma, sleep apnea, HTN, but no other previously known cardiac disease (echo 08/2014 showed normal LV function only mild MR and trivial TR with normal nuclear stress test) Now a transfer from OSH for due to Echo findings of severe MR and LHC with lesion of the ramus intermediate. She has been transferred to [facility] due to moderate disease in the ramus intermedius. NSTEMI (non-ST elevated myoc ardial infarction) 03/25/2015 05/21/2018 Overview: ASA 81 Atorvastatin 40 Lisinopril 40 Last Assessment & Plan: She takes the lisinopril the statin and the ASA. Neck pain, chronic 02/22/2015 7 Non-ST elevation myocardial infarction (NSTEMI), initial episode of care 08/04/20142018 Overview: -Pt transferred to [facility] for NSTEMI? In setting of EKG abnormality and elevated troponin I, thought to be primary ACS vs 2/2 to increase in cardiac demand in setting of sepsis -PT never had CP OSH w/u -EKG --T wave changes in lateral leads -Elevated troponin I, Ck MB WNL -ECHO/Doppler --> Segmental wall motion abnormalities, EF 50%, +2 MR & TR, RVSP 38, no shunt -CTA 07/26/2014 --> No PE, no aortic dissection, Diffuse pulmonary infiltrates, cardiomegaly with evidence of RSHF -Started on Heparin gtt RF: HTN, ex smoker, FH of CAD (father <60 years), Off statins for long time, till restarted in the OSH, denies DM Plan -Trend CE x3 -High intensity statins, Lipitor 80mg QD -Tight BP control -Will hold off heparin, given that the pt is CP free -ECHO -Depending on ECHO results will proceed with either NM stress test or LHC Last Assessment & Plan: PMR (polymyalgia rheumatica) 07/20/2013 05/21/2018 Polymyositis 09/29/2011 05/21/2018 Elevated blood pressure 09/09/201111/04 Chronic pain 04/18/2011 11/06/2016 Last Assessment & Plan: Takes ultram for chronic pains, myalgias and joint pains. Takes 2 tabs qid. States this does help with her pains. Dysphagia 10/25/2010 12/01/2013 Hypokalemia 10/04/2010 12/01/2013 Left Plantar fasciitis 10/04/201012/01 Bipolar affective 04/27/2010 05/21/2018 Overview: Continue Diazepam 10mg BID CRI (chronic renal insufficiency) 09/30/2009 12/01/2013 ANEMIA BLOOD LOSS CHRONIC 12/23/2007 documented as of this encounter (statuses as of 11/16/2022) [facility] History of Past illness Narrative* Problem Noted Date Diagnosed Date Resolved Date Chronic obstructive pulmonary disease 12/26/2015 03/15/2016 Coronary artery disease invo lving [place] coronary artery of [place] heart with angina pectoris 12/26/2015 06/07/2017 Atypical chest pain 12/26/2015 06/08/19 18 Chronic right shoulder pain 07/14/2015 11/06/2016 SUMMARY 03/27/2015 10/25/2017 Overview: Leyda Lopez is a 54 year old female with COPD, asthma, sleep apnea, HTN, but no other previously known cardiac disease (echo 08/2014 showed normal LV function only mild MR and trivial TR with normal nuclear stress test) Now a transfer from OSH for due to Echo findings of severe MR and LHC with lesion of the ramus intermediate. She has been transferred to [facility] due to moderate disease in the ramus intermedius. NSTEMI (non-ST elevated myoc ardial infarction) 03/25/2015 05/21/2018 Overview: ASA 81 Atorvastatin 40 Lisinopril 40 Last Assessment & Plan: She takes the lisinopril the statin and the ASA. Neck pain, chronic 02/22/2015 7 Non-ST elevation myocardial infarction (NSTEMI), initial episode of care 08/04/20142018 Overview: -Pt transferred to [facility] for NSTEMI? In setting of EKG abnormality and elevated troponin I, thought to be primary ACS vs 2/2 to increase in cardiac demand in setting of sepsis -PT never had CP OSH w/u -EKG --T wave changes in lateral leads -Elevated troponin I, Ck MB WNL -ECHO/Doppler --> Segmental wall motion abnormalities, EF 50%, +2 MR & TR, RVSP 38, no shunt -CTA 07/26/2014 --> No PE, no aortic dissection, Diffuse pulmonary infiltrates, cardiomegaly with evidence of RSHF -Started on Heparin gtt RF: HTN, ex smoker, FH of CAD (father <60 years), Off statins for long time, till restarted in the OSH, denies DM Plan -Trend CE x3 -High intensity statins, Lipitor 80mg QD -Tight BP control -Will hold off heparin, given that the pt is CP free -ECHO -Depending on ECHO results will proceed with either NM stress test or LHC Last Assessment & Plan: PMR (polymyalgia rheumatica) 07/20/2013 05/21/2018 Polymyositis 09/29/2011 05/21/2018 Elevated blood pressure 09/09/201111/04 Chronic pain 04/18/2011 11/06/2016 Last Assessment & Plan: Takes ultram for chronic pains, myalgias and joint pains. Takes 2 tabs qid. States this does help with her pains. Dysphagia 10/25/2010 12/01/2013 Hypokalemia 10/04/2010 12/01/2013 Left Plantar fasciitis 10/04/201012/01 Bipolar affective 04/27/2010 05/21/2018 Overview: Continue Diazepam 10mg BID CRI (chronic renal insufficiency) 09/30/2009 12/01/2013 ANEMIA BLOOD LOSS CHRONIC 12/23/2007 documented as of this encounter (statuses as of 11/19/2022) [facility] History of Past illness Narrative* Problem Noted Date Diagnosed Date Resolved Date Chronic obstructive pulmonary disease 12/26/2015 03/15/2016 Coronary artery disease invo lving [place] coronary artery of [place] heart with angina pectoris 12/26/2015 06/07/2017 Atypical chest pain 12/26/2015 06/08/19 18 Chronic right shoulder pain 07/14/2015 11/06/2016 SUMMARY 03/27/2015 10/25/2017 Overview: Leyda Lopez is a 54 year old female with COPD, asthma, sleep apnea, HTN, but no other previously known cardiac disease (echo 08/2014 showed normal LV function only mild MR and trivial TR with normal nuclear stress test) Now a transfer from OSH for due to Echo findings of severe MR and LHC with lesion of the ramus intermediate. She has been transferred to [facility] due to moderate disease in the ramus intermedius. NSTEMI (non-ST elevated myoc ardial infarction) 03/25/2015 05/21/2018 Overview: ASA 81 Atorvastatin 40 Lisinopril 40 Last Assessment & Plan: She takes the lisinopril the statin and the ASA. Neck pain, chronic 02/22/2015 7 Non-ST elevation myocardial infarction (NSTEMI), initial episode of care 08/04/20142018 Overview: -Pt transferred to [facility] for NSTEMI? In setting of EKG abnormality and elevated troponin I, thought to be primary ACS vs 2/2 to increase in cardiac demand in setting of sepsis -PT never had CP OSH w/u -EKG --T wave changes in lateral leads -Elevated troponin I, Ck MB WNL -ECHO/Doppler --> Segmental wall motion abnormalities, EF 50%, +2 MR & TR, RVSP 38, no shunt -CTA 07/26/2014 --> No PE, no aortic dissection, Diffuse pulmonary infiltrates, cardiomegaly with evidence of RSHF -Started on Heparin gtt RF: HTN, ex smoker, FH of CAD (father <60 years), Off statins for long time, till restarted in the OSH, denies DM Plan -Trend CE x3 -High intensity statins, Lipitor 80mg QD -Tight BP control -Will hold off heparin, given that the pt is CP free -ECHO -Depending on ECHO results will proceed with either NM stress test or LHC Last Assessment & Plan: PMR (polymyalgia rheumatica) 07/20/2013 05/21/2018 Polymyositis 09/29/2011 05/21/2018 Elevated blood pressure 09/09/201111/04 Chronic pain 04/18/2011 11/06/2016 Last Assessment & Plan: Takes ultram for chronic pains, myalgias and joint pains. Takes 2 tabs qid. States this does help with her pains. Dysphagia 10/25/2010 12/01/2013 Hypokalemia 10/04/2010 12/01/2013 Left Plantar fasciitis 10/04/201012/01 Bipolar affective 04/27/2010 05/21/2018 Overview: Continue Diazepam 10mg BID CRI (chronic renal insufficiency) 09/30/2009 12/01/2013 ANEMIA BLOOD LOSS CHRONIC 12/23/2007 documented as of this encounter (statuses as of 11/19/2022) [facility] History of Past illness Narrative* Problem Noted Date Diagnosed Date Resolved Date Chronic obstructive pulmonary disease 12/26/2015 03/15/2016 Coronary artery disease invo lving [place] coronary artery of [place] heart with angina pectoris 12/26/2015 06/07/2017 Atypical chest pain 12/26/2015 06/08/19 18 Chronic right shoulder pain 07/14/2015 11/06/2016 SUMMARY 03/27/2015 10/25/2017 Overview: Leyda Lopez is a 54 year old female with COPD, asthma, sleep apnea, HTN, but no other previously known cardiac disease (echo 08/2014 showed normal LV function only mild MR and trivial TR with normal nuclear stress test) Now a transfer from OSH for due to Echo findings of severe MR and LHC with lesion of the ramus intermediate. She has been transferred to [facility] due to moderate disease in the ramus intermedius. NSTEMI (non-ST elevated myoc ardial infarction) 03/25/2015 05/21/2018 Overview: ASA 81 Atorvastatin 40 Lisinopril 40 Last Assessment & Plan: She takes the lisinopril the statin and the ASA. Neck pain, chronic 02/22/2015 7 Non-ST elevation myocardial infarction (NSTEMI), initial episode of care 08/04/20142018 Overview: -Pt transferred to [facility] for NSTEMI? In setting of EKG abnormality and elevated troponin I, thought to be primary ACS vs 2/2 to increase in cardiac demand in setting of sepsis -PT never had CP OSH w/u -EKG --T wave changes in lateral leads -Elevated troponin I, Ck MB WNL -ECHO/Doppler --> Segmental wall motion abnormalities, EF 50%, +2 MR & TR, RVSP 38, no shunt -CTA 07/26/2014 --> No PE, no aortic dissection, Diffuse pulmonary infiltrates, cardiomegaly with evidence of RSHF -Started on Heparin gtt RF: HTN, ex smoker, FH of CAD (father <60 years), Off statins for long time, till restarted in the OSH, denies DM Plan -Trend CE x3 -High intensity statins, Lipitor 80mg QD -Tight BP control -Will hold off heparin, given that the pt is CP free -ECHO -Depending on ECHO results will proceed with either NM stress test or LHC Last Assessment & Plan: PMR (polymyalgia rheumatica) 07/20/2013 05/21/2018 Polymyositis 09/29/2011 05/21/2018 Elevated blood pressure 09/09/201111/04 Chronic pain 04/18/2011 11/06/2016 Last Assessment & Plan: Takes ultram for chronic pains, myalgias and joint pains. Takes 2 tabs qid. States this does help with her pains. Dysphagia 10/25/2010 12/01/2013 Hypokalemia 10/04/2010 12/01/2013 Left Plantar fasciitis 10/04/201012/01 Bipolar affective 04/27/2010 05/21/2018 Overview: Continue Diazepam 10mg BID CRI (chronic renal insufficiency) 09/30/2009 12/01/2013 ANEMIA BLOOD LOSS CHRONIC 12/23/2007 documented as of this encounter (statuses as of 11/20/2022) [facility] History of Past illness Narrative* Problem Noted Date Diagnosed Date Resolved Date Chronic obstructive pulmonary disease 12/26/2015 03/15/2016 Coronary artery disease invo lving [place] coronary artery of [place] heart with angina pectoris 12/26/2015 06/07/2017 Atypical chest pain 12/26/2015 06/08/19 18 Chronic right shoulder pain 07/14/2015 11/06/2016 SUMMARY 03/27/2015 10/25/2017 Overview: Leyda Lopez is a 54 year old female with COPD, asthma, sleep apnea, HTN, but no other previously known cardiac disease (echo 08/2014 showed normal LV function only mild MR and trivial TR with normal nuclear stress test) Now a transfer from OSH for due to Echo findings of severe MR and LHC with lesion of the ramus intermediate. She has been transferred to [facility] due to moderate disease in the ramus intermedius. NSTEMI (non-ST elevated myoc ardial infarction) 03/25/2015 05/21/2018 Overview: ASA 81 Atorvastatin 40 Lisinopril 40 Last Assessment & Plan: She takes the lisinopril the statin and the ASA. Neck pain, chronic 02/22/2015 7 Non-ST elevation myocardial infarction (NSTEMI), initial episode of care 08/04/20142018 Overview: -Pt transferred to [facility] for NSTEMI? In setting of EKG abnormality and elevated troponin I, thought to be primary ACS vs 2/2 to increase in cardiac demand in setting of sepsis -PT never had CP OSH w/u -EKG --T wave changes in lateral leads -Elevated troponin I, Ck MB WNL -ECHO/Doppler --> Segmental wall motion abnormalities, EF 50%, +2 MR & TR, RVSP 38, no shunt -CTA 07/26/2014 --> No PE, no aortic dissection, Diffuse pulmonary infiltrates, cardiomegaly with evidence of RSHF -Started on Heparin gtt RF: HTN, ex smoker, FH of CAD (father <60 years), Off statins for long time, till restarted in the OSH, denies DM Plan -Trend CE x3 -High intensity statins, Lipitor 80mg QD -Tight BP control -Will hold off heparin, given that the pt is CP free -ECHO -Depending on ECHO results will proceed with either NM stress test or LHC Last Assessment & Plan: PMR (polymyalgia rheumatica) 07/20/2013 05/21/2018 Polymyositis 09/29/2011 05/21/2018 Elevated blood pressure 09/09/201111/04 Chronic pain 04/18/2011 11/06/2016 Last Assessment & Plan: Takes ultram for chronic pains, myalgias and joint pains. Takes 2 tabs qid. States this does help with her pains. Dysphagia 10/25/2010 12/01/2013 Hypokalemia 10/04/2010 12/01/2013 Left Plantar fasciitis 10/04/201012/01 Bipolar affective 04/27/2010 05/21/2018 Overview: Continue Diazepam 10mg BID CRI (chronic renal insufficiency) 09/30/2009 12/01/2013 ANEMIA BLOOD LOSS CHRONIC 12/23/2007 documented as of this encounter (statuses as of 11/21/2022) [facility] History of Past illness Narrative* Problem Noted Date Diagnosed Date Resolved Date Chronic obstructive pulmonary disease 12/26/2015 03/15/2016 Coronary artery disease invo lving [place] coronary artery of [place] heart with angina pectoris 12/26/2015 06/07/2017 Atypical chest pain 12/26/2015 06/08/19 18 Chronic right shoulder pain 07/14/2015 11/06/2016 SUMMARY 03/27/2015 10/25/2017 Overview: Leyda Lopez is a 54 year old female with COPD, asthma, sleep apnea, HTN, but no other previously known cardiac disease (echo 08/2014 showed normal LV function only mild MR and trivial TR with normal nuclear stress test) Now a transfer from OSH for due to Echo findings of severe MR and LHC with lesion of the ramus intermediate. She has been transferred to [facility] due to moderate disease in the ramus intermedius. NSTEMI (non-ST elevated myoc ardial infarction) 03/25/2015 05/21/2018 Overview: ASA 81 Atorvastatin 40 Lisinopril 40 Last Assessment & Plan: She takes the lisinopril the statin and the ASA. Neck pain, chronic 02/22/2015 7 Non-ST elevation myocardial infarction (NSTEMI), initial episode of care 08/04/20142018 Overview: -Pt transferred to [facility] for NSTEMI? In setting of EKG abnormality and elevated troponin I, thought to be primary ACS vs 2/2 to increase in cardiac demand in setting of sepsis -PT never had CP OSH w/u -EKG --T wave changes in lateral leads -Elevated troponin I, Ck MB WNL -ECHO/Doppler --> Segmental wall motion abnormalities, EF 50%, +2 MR & TR, RVSP 38, no shunt -CTA 07/26/2014 --> No PE, no aortic dissection, Diffuse pulmonary infiltrates, cardiomegaly with evidence of RSHF -Started on Heparin gtt RF: HTN, ex smoker, FH of CAD (father <60 years), Off statins for long time, till restarted in the OSH, denies DM Plan -Trend CE x3 -High intensity statins, Lipitor 80mg QD -Tight BP control -Will hold off heparin, given that the pt is CP free -ECHO -Depending on ECHO results will proceed with either NM stress test or LHC Last Assessment & Plan: PMR (polymyalgia rheumatica) 07/20/2013 05/21/2018 Polymyositis 09/29/2011 05/21/2018 Elevated blood pressure 09/09/201111/04 Chronic pain 04/18/2011 11/06/2016 Last Assessment & Plan: Takes ultram for chronic pains, myalgias and joint pains. Takes 2 tabs qid. States this does help with her pains. Dysphagia 10/25/2010 12/01/2013 Hypokalemia 10/04/2010 12/01/2013 Left Plantar fasciitis 10/04/201012/01 Bipolar affective 04/27/2010 05/21/2018 Overview: Continue Diazepam 10mg BID CRI (chronic renal insufficiency) 09/30/2009 12/01/2013 ANEMIA BLOOD LOSS CHRONIC 12/23/2007 documented as of this encounter (statuses as of 12/04/2022) [facility] History of Past illness Narrative* Problem Noted Date Diagnosed Date Resolved Date Chronic obstructive pulmonary disease 12/26/2015 03/15/2016 Coronary artery disease invo lving [place] coronary artery of [place] heart with angina pectoris 12/26/2015 06/07/2017 Atypical chest pain 12/26/2015 06/08/19 18 Chronic right shoulder pain 07/14/2015 11/06/2016 SUMMARY 03/27/2015 10/25/2017 Overview: Leyda Lopez is a 54 year old female with COPD, asthma, sleep apnea, HTN, but no other previously known cardiac disease (echo 08/2014 showed normal LV function only mild MR and trivial TR with normal nuclear stress test) Now a transfer from OSH for due to Echo findings of severe MR and LHC with lesion of the ramus intermediate. She has been transferred to [facility] due to moderate disease in the ramus intermedius. NSTEMI (non-ST elevated myoc ardial infarction) 03/25/2015 05/21/2018 Overview: ASA 81 Atorvastatin 40 Lisinopril 40 Last Assessment & Plan: She takes the lisinopril the statin and the ASA. Neck pain, chronic 02/22/2015 7 Non-ST elevation myocardial infarction (NSTEMI), initial episode of care 08/04/20142018 Overview: -Pt transferred to [facility] for NSTEMI? In setting of EKG abnormality and elevated troponin I, thought to be primary ACS vs 2/2 to increase in cardiac demand in setting of sepsis -PT never had CP OSH w/u -EKG --T wave changes in lateral leads -Elevated troponin I, Ck MB WNL -ECHO/Doppler --> Segmental wall motion abnormalities, EF 50%, +2 MR & TR, RVSP 38, no shunt -CTA 07/26/2014 --> No PE, no aortic dissection, Diffuse pulmonary infiltrates, cardiomegaly with evidence of RSHF -Started on Heparin gtt RF: HTN, ex smoker, FH of CAD (father <60 years), Off statins for long time, till restarted in the OSH, denies DM Plan -Trend CE x3 -High intensity statins, Lipitor 80mg QD -Tight BP control -Will hold off heparin, given that the pt is CP free -ECHO -Depending on ECHO results will proceed with either NM stress test or LHC Last Assessment & Plan: PMR (polymyalgia rheumatica) 07/20/2013 05/21/2018 Polymyositis 09/29/2011 05/21/2018 Elevated blood pressure 09/09/201111/04 Chronic pain 04/18/2011 11/06/2016 Last Assessment & Plan: Takes ultram for chronic pains, myalgias and joint pains. Takes 2 tabs qid. States this does help with her pains. Dysphagia 10/25/2010 12/01/2013 Hypokalemia 10/04/2010 12/01/2013 Left Plantar fasciitis 10/04/201012/01 Bipolar affective 04/27/2010 05/21/2018 Overview: Continue Diazepam 10mg BID CRI (chronic renal insufficiency) 09/30/2009 12/01/2013 ANEMIA BLOOD LOSS CHRONIC 12/23/2007 documented as of this encounter (statuses as of 12/11/2022) [facility] History of Past illness Narrative* Problem Noted Date Diagnosed Date Resolved Date Chronic obstructive pulmonary disease 12/26/2015 03/15/2016 Coronary artery disease invo lving [place] coronary artery of [place] heart with angina pectoris 12/26/2015 06/07/2017 Atypical chest pain 12/26/2015 06/08/19 18 Chronic right shoulder pain 07/14/2015 11/06/2016 SUMMARY 03/27/2015 10/25/2017 Overview: Leyda Lopez is a 54 year old female with COPD, asthma, sleep apnea, HTN, but no other previously known cardiac disease (echo 08/2014 showed normal LV function only mild MR and trivial TR with normal nuclear stress test) Now a transfer from [facility] for due to Echo findings of severe MR and LHC with lesion of the ramus intermediate. She has been transferred to [facility] due to moderate disease in the ramus intermedius. NSTEMI (non-ST elevated myoc ardial infarction) 03/25/2015 05/21/2018 Overview: ASA 81 Atorvastatin 40 Lisinopril 40 Last Assessment & Plan: She takes the lisinopril the statin and the ASA. Neck pain, chronic 02/22/2015 7 Non-ST elevation myocardial infarction (NSTEMI), initial episode of care 08/04/20142018 Overview: -Pt transferred to [facility] for NSTEMI? In setting of EKG abnormality and elevated troponin I, thought to be primary ACS vs 2/2 to increase in cardiac demand in setting of sepsis -PT never had CP OSH w/u -EKG --T wave changes in lateral leads -Elevated troponin I, Ck MB WNL -ECHO/Doppler --> Segmental wall motion abnormalities, EF 50%, +2 MR & TR, RVSP 38, no shunt -CTA 07/26/2014 --> No PE, no aortic dissection, Diffuse pulmonary infiltrates, cardiomegaly with evidence of RSHF -Started on Heparin gtt RF: HTN, ex smoker, FH of CAD (father <60 years), Off statins for long time, till restarted in the OSH, denies DM Plan -Trend CE x3 -High intensity statins, Lipitor 80mg QD -Tight BP control -Will hold off heparin, given that the pt is CP free -ECHO -Depending on ECHO results will proceed with either NM stress test or LHC Last Assessment & Plan: PMR (polymyalgia rheumatica) 07/20/2013 05/21/2018 Polymyositis 09/29/2011 05/21/2018 Elevated blood pressure 09/09/201111/04 Chronic pain 04/18/2011 11/06/2016 Last Assessment & Plan: Takes ultram for chronic pains, myalgias and joint pains. Takes 2 tabs qid. States this does help with her pains. Dysphagia 10/25/2010 12/01/2013 Hypokalemia 10/04/2010 12/01/2013 Left Plantar fasciitis 10/04/201012/01 Bipolar affective 04/27/2010 05/21/2018 Overview: Continue Diazepam 10mg BID CRI (chronic renal insufficiency) 09/30/2009 12/01/2013 ANEMIA BLOOD LOSS CHRONIC 12/23/2007 documented as of this encounter (statuses as of 12/12/2022) [facility] History of Past illness Narrative* Problem Noted Date Diagnosed Date Resolved Date Chronic obstructive pulmonary disease 12/26/2015 03/15/2016 Coronary artery disease invo lving [place] coronary artery of [place] heart with angina pectoris 12/26/2015 06/07/2017 Atypical chest pain 12/26/2015 06/08/19 18 Chronic right shoulder pain 07/14/2015 11/06/2016 SUMMARY 03/27/2015 10/25/2017 Overview: Leyda Lopez is a 54 year old female with COPD, asthma, sleep apnea, HTN, but no other previously known cardiac disease (echo 08/2014 showed normal LV function only mild MR and trivial TR with normal nuclear stress test) Now a transfer from OSH for due to Echo findings of severe MR and LHC with lesion of the ramus intermediate. She has been transferred to [facility] due to moderate disease in the ramus intermedius. NSTEMI (non-ST elevated myoc ardial infarction) 03/25/2015 05/21/2018 Overview: ASA 81 Atorvastatin 40 Lisinopril 40 Last Assessment & Plan: She takes the lisinopril the statin and the ASA. Neck pain, chronic 02/22/2015 7 Non-ST elevation myocardial infarction (NSTEMI), initial episode of care 08/04/20142018 Overview: -Pt transferred to [facility] for NSTEMI? In setting of EKG abnormality and elevated troponin I, thought to be primary ACS vs 2/2 to increase in cardiac demand in setting of sepsis -PT never had CP OSH w/u -EKG --T wave changes in lateral leads -Elevated troponin I, Ck MB WNL -ECHO/Doppler --> Segmental wall motion abnormalities, EF 50%, +2 MR & TR, RVSP 38, no shunt -CTA 07/26/2014 --> No PE, no aortic dissection, Diffuse pulmonary infiltrates, cardiomegaly with evidence of RSHF -Started on Heparin gtt RF: HTN, ex smoker, FH of CAD (father <60 years), Off statins for long time, till restarted in the OSH, denies DM Plan -Trend CE x3 -High intensity statins, Lipitor 80mg QD -Tight BP control -Will hold off heparin, given that the pt is CP free -ECHO -Depending on ECHO results will proceed with either NM stress test or LHC Last Assessment & Plan: PMR (polymyalgia rheumatica) 07/20/2013 05/21/2018 Polymyositis 09/29/2011 05/21/2018 Elevated blood pressure 09/09/201111/04 Chronic pain 04/18/2011 11/06/2016 Last Assessment & Plan: Takes ultram for chronic pains, myalgias and joint pains. Takes 2 tabs qid. States this does help with her pains. Dysphagia 10/25/2010 12/01/2013 Hypokalemia 10/04/2010 12/01/2013 Left Plantar fasciitis 10/04/201012/01 Bipolar affective 04/27/2010 05/21/2018 Overview: Continue Diazepam 10mg BID CRI (chronic renal insufficiency) 09/30/2009 12/01/2013 ANEMIA BLOOD LOSS CHRONIC 12/23/2007 documented as of this encounter (statuses as of 12/28/2022) [facility] History of Past illness Narrative* Problem Noted Date Diagnosed Date Resolved Date Chronic obstructive pulmonary disease 12/26/2015 03/15/2016 Coronary artery disease invo lving [place] coronary artery of [place] heart with angina pectoris 12/26/2015 06/07/2017 Atypical chest pain 12/26/2015 06/08/19 18 Chronic right shoulder pain 07/14/2015 11/06/2016 SUMMARY 03/27/2015 10/25/2017 Overview: eLyda Lopez is a 54 year old female with COPD, asthma, sleep apnea, HTN, but no other previously known cardiac disease (echo 08/2014 showed normal LV function only mild MR and trivial TR with normal nuclear stress test) Now a transfer from OSH for due to Echo findings of severe MR and LHC with lesion of the ramus intermediate. She has been transferred to [facility] due to moderate disease in the ramus intermedius. NSTEMI (non-ST elevated myoc ardial infarction) 03/25/2015 05/21/2018 Overview: ASA 81 Atorvastatin 40 Lisinopril 40 Last Assessment & Plan: She takes the lisinopril the statin and the ASA. Neck pain, chronic 02/22/2015 7 Non-ST elevation myocardial infarction (NSTEMI), initial episode of care 08/04/20142018 Overview: -Pt transferred to [facility] for NSTEMI? In setting of EKG abnormality and elevated troponin I, thought to be primary ACS vs 2/2 to increase in cardiac demand in setting of sepsis -PT never had CP OSH w/u -EKG --T wave changes in lateral leads -Elevated troponin I, Ck MB WNL -ECHO/Doppler --> Segmental wall motion abnormalities, EF 50%, +2 MR & TR, RVSP 38, no shunt -CTA 07/26/2014 --> No PE, no aortic dissection, Diffuse pulmonary infiltrates, cardiomegaly with evidence of RSHF -Started on Heparin gtt RF: HTN, ex smoker, FH of CAD (father <60 years), Off statins for long time, till restarted in the OSH, denies DM Plan -Trend CE x3 -High intensity statins, Lipitor 80mg QD -Tight BP control -Will hold off heparin, given that the pt is CP free -ECHO -Depending on ECHO results will proceed with either NM stress test or LHC Last Assessment & Plan: PMR (polymyalgia rheumatica) 07/20/2013 05/21/2018 Polymyositis 09/29/2011 05/21/2018 Elevated blood pressure 09/09/201111/04 Chronic pain 04/18/2011 11/06/2016 Last Assessment & Plan: Takes ultram for chronic pains, myalgias and joint pains. Takes 2 tabs qid. States this does help with her pains. Dysphagia 10/25/2010 12/01/2013 Hypokalemia 10/04/2010 12/01/2013 Left Plantar fasciitis 10/04/201012/01 Bipolar affective 04/27/2010 05/21/2018 Overview: Continue Diazepam 10mg BID CRI (chronic renal insufficiency) 09/30/2009 12/01/2013 ANEMIA BLOOD LOSS CHRONIC 12/23/2007 documented as of this encounter (statuses as of 01/06/2023) [facility] History of Past illness Narrative* Problem Noted Date Diagnosed Date Resolved Date Chronic obstructive pulmonary disease 12/26/2015 03/15/2016 Coronary artery disease invo lving [place] coronary artery of [place] heart with angina pectoris 12/26/2015 06/07/2017 Atypical chest pain 12/26/2015 06/08/19 18 Chronic right shoulder pain 07/14/2015 11/06/2016 SUMMARY 03/27/2015 10/25/2017 Overview: Leyda Lopez is a 54 year old female with COPD, asthma, sleep apnea, HTN, but no other previously known cardiac disease (echo 08/2014 showed normal LV function only mild MR and trivial TR with normal nuclear stress test) Now a transfer from OSH for due to Echo findings of severe MR and LHC with lesion of the ramus intermediate. She has been transferred to [facility] due to moderate disease in the ramus intermedius. NSTEMI (non-ST elevated myoc ardial infarction) 03/25/2015 05/21/2018 Overview: ASA 81 Atorvastatin 40 Lisinopril 40 Last Assessment & Plan: She takes the lisinopril the statin and the ASA. Neck pain, chronic 02/22/2015 7 Non-ST elevation myocardial infarction (NSTEMI), initial episode of care 08/04/20142018 Overview: -Pt transferred to [facility] for NSTEMI? In setting of EKG abnormality and elevated troponin I, thought to be primary ACS vs 2/2 to increase in cardiac demand in setting of sepsis -PT never had CP OSH w/u -EKG --T wave changes in lateral leads -Elevated troponin I, Ck MB WNL -ECHO/Doppler --> Segmental wall motion abnormalities, EF 50%, +2 MR & TR, RVSP 38, no shunt -CTA 07/26/2014 --> No PE, no aortic dissection, Diffuse pulmonary infiltrates, cardiomegaly with evidence of RSHF -Started on Heparin gtt RF: HTN, ex smoker, FH of CAD (father <60 years), Off statins for long time, till restarted in the OSH, denies DM Plan -Trend CE x3 -High intensity statins, Lipitor 80mg QD -Tight BP control -Will hold off heparin, given that the pt is CP free -ECHO -Depending on ECHO results will proceed with either NM stress test or LHC Last Assessment & Plan: PMR (polymyalgia rheumatica) 07/20/2013 05/21/2018 Polymyositis 09/29/2011 05/21/2018 Elevated blood pressure 09/09/201111/04 Chronic pain 04/18/2011 11/06/2016 Last Assessment & Plan: Takes ultram for chronic pains, myalgias and joint pains. Takes 2 tabs qid. States this does help with her pains. Dysphagia 10/25/2010 12/01/2013 Hypokalemia 10/04/2010 12/01/2013 Left Plantar fasciitis 10/04/201012/01 Bipolar affective 04/27/2010 05/21/2018 Overview: Continue Diazepam 10mg BID CRI (chronic renal insufficiency) 09/30/2009 12/01/2013 ANEMIA BLOOD LOSS CHRONIC 12/23/2007 documented as of this encounter (statuses as of 01/06/2023) [facility] History of Past illness Narrative* Problem Noted Date Diagnosed Date Resolved Date Chronic obstructive pulmonary disease 12/26/2015 03/15/2016 Coronary artery disease invo lving [place] coronary artery of [place] heart with angina pectoris 12/26/2015 06/07/2017 Atypical chest pain 12/26/2015 06/08/19 18 Chronic right shoulder pain 07/14/2015 11/06/2016 SUMMARY 03/27/2015 10/25/2017 Overview: Leyda Lopez is a 54 year old female with COPD, asthma, sleep apnea, HTN, but no other previously known cardiac disease (echo 08/2014 showed normal LV function only mild MR and trivial TR with normal nuclear stress test) Now a transfer from OSH for due to Echo findings of severe MR and LHC with lesion of the ramus intermediate. She has been transferred to [facility] due to moderate disease in the ramus intermedius. NSTEMI (non-ST elevated myoc ardial infarction) 03/25/2015 05/21/2018 Overview: ASA 81 Atorvastatin 40 Lisinopril 40 Last Assessment & Plan: She takes the lisinopril the statin and the ASA. Neck pain, chronic 02/22/2015 7 Non-ST elevation myocardial infarction (NSTEMI), initial episode of care 08/04/20142018 Overview: -Pt transferred to [facility] for NSTEMI? In setting of EKG abnormality and elevated troponin I, thought to be primary ACS vs 2/2 to increase in cardiac demand in setting of sepsis -PT never had CP OSH w/u -EKG --T wave changes in lateral leads -Elevated troponin I, Ck MB WNL -ECHO/Doppler --> Segmental wall motion abnormalities, EF 50%, +2 MR & TR, RVSP 38, no shunt -CTA 07/26/2014 --> No PE, no aortic dissection, Diffuse pulmonary infiltrates, cardiomegaly with evidence of RSHF -Started on Heparin gtt RF: HTN, ex smoker, FH of CAD (father <60 years), Off statins for long time, till restarted in the OSH, denies DM Plan -Trend CE x3 -High intensity statins, Lipitor 80mg QD -Tight BP control -Will hold off heparin, given that the pt is CP free -ECHO -Depending on ECHO results will proceed with either NM stress test or LHC Last Assessment & Plan: PMR (polymyalgia rheumatica) 07/20/2013 05/21/2018 Polymyositis 09/29/2011 05/21/2018 Elevated blood pressure 09/09/201111/04 Chronic pain 04/18/2011 11/06/2016 Last Assessment & Plan: Takes ultram for chronic pains, myalgias and joint pains. Takes 2 tabs qid. States this does help with her pains. Dysphagia 10/25/2010 12/01/2013 Hypokalemia 10/04/2010 12/01/2013 Left Plantar fasciitis 10/04/201012/01 Bipolar affective 04/27/2010 05/21/2018 Overview: Continue Diazepam 10mg BID CRI (chronic renal insufficiency) 09/30/2009 12/01/2013 ANEMIA BLOOD LOSS CHRONIC 12/23/2007 documented as of this encounter (statuses as of 01/06/2023) [facility] History of Past illness Narrative* Problem Noted Date Diagnosed Date Resolved Date Chronic obstructive pulmonary disease 12/26/2015 03/15/2016 Coronary artery disease invo lving [place] coronary artery of [place] heart with angina pectoris 12/26/2015 06/07/2017 Atypical chest pain 12/26/2015 06/08/19 18 Chronic right shoulder pain 07/14/2015 11/06/2016 SUMMARY 03/27/2015 10/25/2017 Overview: Leyda Lopez is a 54 year old female with COPD, asthma, sleep apnea, HTN, but no other previously known cardiac disease (echo 08/2014 showed normal LV function only mild MR and trivial TR with normal nuclear stress test) Now a transfer from OSH for due to Echo findings of severe MR and LHC with lesion of the ramus intermediate. She has been transferred to [facility] due to moderate disease in the ramus intermedius. NSTEMI (non-ST elevated myoc ardial infarction) 03/25/2015 05/21/2018 Overview: ASA 81 Atorvastatin 40 Lisinopril 40 Last Assessment & Plan: She takes the lisinopril the statin and the ASA. Neck pain, chronic 02/22/2015 7 Non-ST elevation myocardial infarction (NSTEMI), initial episode of care 08/04/20142018 Overview: -Pt transferred to [facility] for NSTEMI? In setting of EKG abnormality and elevated troponin I, thought to be primary ACS vs 2/2 to increase in cardiac demand in setting of sepsis -PT never had CP OSH w/u -EKG --T wave changes in lateral leads -Elevated troponin I, Ck MB WNL -ECHO/Doppler --> Segmental wall motion abnormalities, EF 50%, +2 MR & TR, RVSP 38, no shunt -CTA 07/26/2014 --> No PE, no aortic dissection, Diffuse pulmonary infiltrates, cardiomegaly with evidence of RSHF -Started on Heparin gtt RF: HTN, ex smoker, FH of CAD (father <60 years), Off statins for long time, till restarted in the OSH, denies DM Plan -Trend CE x3 -High intensity statins, Lipitor 80mg QD -Tight BP control -Will hold off heparin, given that the pt is CP free -ECHO -Depending on ECHO results will proceed with either NM stress test or LHC Last Assessment & Plan: PMR (polymyalgia rheumatica) 07/20/2013 05/21/2018 Polymyositis 09/29/2011 05/21/2018 Elevated blood pressure 09/09/201111/04 Chronic pain 04/18/2011 11/06/2016 Last Assessment & Plan: Takes ultram for chronic pains, myalgias and joint pains. Takes 2 tabs qid. States this does help with her pains. Dysphagia 10/25/2010 12/01/2013 Hypokalemia 10/04/2010 12/01/2013 Left Plantar fasciitis 10/04/201012/01 Bipolar affective 04/27/2010 05/21/2018 Overview: Continue Diazepam 10mg BID CRI (chronic renal insufficiency) 09/30/2009 12/01/2013 ANEMIA BLOOD LOSS CHRONIC 12/23/2007 documented as of this encounter (statuses as of 01/11/2023) [facility] History of Past illness Narrative* Problem Noted Date Diagnosed Date Resolved Date Chronic obstructive pulmonary disease 12/26/2015 03/15/2016 Coronary artery disease invo lving [place] coronary artery of [place] heart with angina pectoris 12/26/2015 06/07/2017 Atypical chest pain 12/26/2015 06/08/19 18 Chronic right shoulder pain 07/14/2015 11/06/2016 SUMMARY 03/27/2015 10/25/2017 Overview: Leyda Lopez is a 54 year old female with COPD, asthma, sleep apnea, HTN, but no other previously known cardiac disease (echo 08/2014 showed normal LV function only mild MR and trivial TR with normal nuclear stress test) Now a transfer from OSH for due to Echo findings of severe MR and LHC with lesion of the ramus intermediate. She has been transferred to [facility] due to moderate disease in the ramus intermedius. NSTEMI (non-ST elevated myoc ardial infarction) 03/25/2015 05/21/2018 Overview: ASA 81 Atorvastatin 40 Lisinopril 40 Last Assessment & Plan: She takes the lisinopril the statin and the ASA. Neck pain, chronic 02/22/2015 7 Non-ST elevation myocardial infarction (NSTEMI), initial episode of care 08/04/20142018 Overview: -Pt transferred to [facility] for NSTEMI? In setting of EKG abnormality and elevated troponin I, thought to be primary ACS vs 2/2 to increase in cardiac demand in setting of sepsis -PT never had CP OSH w/u -EKG --T wave changes in lateral leads -Elevated troponin I, Ck MB WNL -ECHO/Doppler --> Segmental wall motion abnormalities, EF 50%, +2 MR & TR, RVSP 38, no shunt -CTA 07/26/2014 --> No PE, no aortic dissection, Diffuse pulmonary infiltrates, cardiomegaly with evidence of RSHF -Started on Heparin gtt RF: HTN, ex smoker, FH of CAD (father <60 years), Off statins for long time, till restarted in the OSH, denies DM Plan -Trend CE x3 -High intensity statins, Lipitor 80mg QD -Tight BP control -Will hold off heparin, given that the pt is CP free -ECHO -Depending on ECHO results will proceed with either NM stress test or LHC Last Assessment & Plan: PMR (polymyalgia rheumatica) 07/20/2013 05/21/2018 Polymyositis 09/29/2011 05/21/2018 Elevated blood pressure 09/09/201111/04 Chronic pain 04/18/2011 11/06/2016 Last Assessment & Plan: Takes ultram for chronic pains, myalgias and joint pains. Takes 2 tabs qid. States this does help with her pains. Dysphagia 10/25/2010 12/01/2013 Hypokalemia 10/04/2010 12/01/2013 Left Plantar fasciitis 10/04/201012/01 Bipolar affective 04/27/2010 05/21/2018 Overview: Continue Diazepam 10mg BID CRI (chronic renal insufficiency) 09/30/2009 12/01/2013 ANEMIA BLOOD LOSS CHRONIC 12/23/2007 documented as of this encounter (statuses as of 01/21/2023) [facility] History of Past illness Narrative* Problem Noted Date Diagnosed Date Resolved Date Chronic obstructive pulmonary disease 12/26/2015 03/15/2016 Coronary artery disease invo lving [place] coronary artery of [place] heart with angina pectoris 12/26/2015 06/07/2017 Atypical chest pain 12/26/2015 06/08/19 18 Chronic right shoulder pain 07/14/2015 11/06/2016 SUMMARY 03/27/2015 10/25/2017 Overview: Leyda Lopez is a 54 year old female with COPD, asthma, sleep apnea, HTN, but no other previously known cardiac disease (echo 08/2014 showed normal LV function only mild MR and trivial TR with normal nuclear stress test) Now a transfer from OSH for due to Echo findings of severe MR and LHC with lesion of the ramus intermediate. She has been transferred to [facility] due to moderate disease in the ramus intermedius. NSTEMI (non-ST elevated myoc ardial infarction) 03/25/2015 05/21/2018 Overview: ASA 81 Atorvastatin 40 Lisinopril 40 Last Assessment & Plan: She takes the lisinopril the statin and the ASA. Neck pain, chronic 02/22/2015 7 Non-ST elevation myocardial infarction (NSTEMI), initial episode of care 08/04/20142018 Overview: -Pt transferred to [facility] for NSTEMI? In setting of EKG abnormality and elevated troponin I, thought to be primary ACS vs 2/2 to increase in cardiac demand in setting of sepsis -PT never had CP OSH w/u -EKG --T wave changes in lateral leads -Elevated troponin I, Ck MB WNL -ECHO/Doppler --> Segmental wall motion abnormalities, EF 50%, +2 MR & TR, RVSP 38, no shunt -CTA 07/26/2014 --> No PE, no aortic dissection, Diffuse pulmonary infiltrates, cardiomegaly with evidence of RSHF -Started on Heparin gtt RF: HTN, ex smoker, FH of CAD (father <60 years), Off statins for long time, till restarted in the OSH, denies DM Plan -Trend CE x3 -High intensity statins, Lipitor 80mg QD -Tight BP control -Will hold off heparin, given that the pt is CP free -ECHO -Depending on ECHO results will proceed with either NM stress test or LHC Last Assessment & Plan: PMR (polymyalgia rheumatica) 07/20/2013 05/21/2018 Polymyositis 09/29/2011 05/21/2018 Elevated blood pressure 09/09/201111/04 Chronic pain 04/18/2011 11/06/2016 Last Assessment & Plan: Takes ultram for chronic pains, myalgias and joint pains. Takes 2 tabs qid. States this does help with her pains. Dysphagia 10/25/2010 12/01/2013 Hypokalemia 10/04/2010 12/01/2013 Left Plantar fasciitis 10/04/201012/01 Bipolar affective 04/27/2010 05/21/2018 Overview: Continue Diazepam 10mg BID CRI (chronic renal insufficiency) 09/30/2009 12/01/2013 ANEMIA BLOOD LOSS CHRONIC 12/23/2007 documented as of this encounter (statuses as of 01/22/2023) [facility] History of Past illness Narrative* Problem Noted Date Diagnosed Date Resolved Date Chronic obstructive pulmonary disease 12/26/2015 03/15/2016 Coronary artery disease invo lving [place] coronary artery of [place] heart with angina pectoris 12/26/2015 06/07/2017 Atypical chest pain 12/26/2015 06/08/19 18 Chronic right shoulder pain 07/14/2015 11/06/2016 SUMMARY 03/27/2015 10/25/2017 Overview: Leyda Lopez is a 54 year old female with COPD, asthma, sleep apnea, HTN, but no other previously known cardiac disease (echo 08/2014 showed normal LV function only mild MR and trivial TR with normal nuclear stress test) Now a transfer from [facility] for due to Echo findings of severe MR and LHC with lesion of the ramus intermediate. She has been transferred to [facility] due to moderate disease in the ramus intermedius. NSTEMI (non-ST elevated myoc ardial infarction) 03/25/2015 05/21/2018 Overview: ASA 81 Atorvastatin 40 Lisinopril 40 Last Assessment & Plan: She takes the lisinopril the statin and the ASA. Neck pain, chronic 02/22/2015 7 Non-ST elevation myocardial infarction (NSTEMI), initial episode of care 08/04/20142018 Overview: -Pt transferred to [facility] for NSTEMI? In setting of EKG abnormality and elevated troponin I, thought to be primary ACS vs 2/2 to increase in cardiac demand in setting of sepsis -PT never had CP OSH w/u -EKG --T wave changes in lateral leads -Elevated troponin I, Ck MB WNL -ECHO/Doppler --> Segmental wall motion abnormalities, EF 50%, +2 MR & TR, RVSP 38, no shunt -CTA 07/26/2014 --> No PE, no aortic dissection, Diffuse pulmonary infiltrates, cardiomegaly with evidence of RSHF -Started on Heparin gtt RF: HTN, ex smoker, FH of CAD (father <60 years), Off statins for long time, till restarted in the OSH, denies DM Plan -Trend CE x3 -High intensity statins, Lipitor 80mg QD -Tight BP control -Will hold off heparin, given that the pt is CP free -ECHO -Depending on ECHO results will proceed with either NM stress test or LHC Last Assessment & Plan: PMR (polymyalgia rheumatica) 07/20/2013 05/21/2018 Polymyositis 09/29/2011 05/21/2018 Elevated blood pressure 09/09/201111/04 Chronic pain 04/18/2011 11/06/2016 Last Assessment & Plan: Takes ultram for chronic pains, myalgias and joint pains. Takes 2 tabs qid. States this does help with her pains. Dysphagia 10/25/2010 12/01/2013 Hypokalemia 10/04/2010 12/01/2013 Left Plantar fasciitis 10/04/201012/01 Bipolar affective 04/27/2010 05/21/2018 Overview: Continue Diazepam 10mg BID CRI (chronic renal insufficiency) 09/30/2009 12/01/2013 ANEMIA BLOOD LOSS CHRONIC 12/23/2007 documented as of this encounter (statuses as of 01/23/2023) [facility] History of Past illness Narrative* Problem Noted Date Diagnosed Date Resolved Date Chronic obstructive pulmonary disease 12/26/2015 03/15/2016 Coronary artery disease invo lving [place] coronary artery of [place] heart with angina pectoris 12/26/2015 06/07/2017 Atypical chest pain 12/26/2015 06/08/19 18 Chronic right shoulder pain 07/14/2015 11/06/2016 SUMMARY 03/27/2015 10/25/2017 Overview: Leyda Lopez is a 54 year old female with COPD, asthma, sleep apnea, HTN, but no other previously known cardiac disease (echo 08/2014 showed normal LV function only mild MR and trivial TR with normal nuclear stress test) Now a transfer from [facility] for due to Echo findings of severe MR and LHC with lesion of the ramus intermediate. She has been transferred to [facility] due to moderate disease in the ramus intermedius. NSTEMI (non-ST elevated myoc ardial infarction) 03/25/2015 05/21/2018 Overview: ASA 81 Atorvastatin 40 Lisinopril 40 Last Assessment & Plan: She takes the lisinopril the statin and the ASA. Neck pain, chronic 02/22/2015 7 Non-ST elevation myocardial infarction (NSTEMI), initial episode of care 08/04/20142018 Overview: -Pt transferred to [facility] for NSTEMI? In setting of EKG abnormality and elevated troponin I, thought to be primary ACS vs 2/2 to increase in cardiac demand in setting of sepsis -PT never had CP OSH w/u -EKG --T wave changes in lateral leads -Elevated troponin I, Ck MB WNL -ECHO/Doppler --> Segmental wall motion abnormalities, EF 50%, +2 MR & TR, RVSP 38, no shunt -CTA 07/26/2014 --> No PE, no aortic dissection, Diffuse pulmonary infiltrates, cardiomegaly with evidence of RSHF -Started on Heparin gtt RF: HTN, ex smoker, FH of CAD (father <60 years), Off statins for long time, till restarted in the OSH, denies DM Plan -Trend CE x3 -High intensity statins, Lipitor 80mg QD -Tight BP control -Will hold off heparin, given that the pt is CP free -ECHO -Depending on ECHO results will proceed with either NM stress test or LHC Last Assessment & Plan: PMR (polymyalgia rheumatica) 07/20/2013 05/21/2018 Polymyositis 09/29/2011 05/21/2018 Elevated blood pressure 09/09/201111/04 Chronic pain 04/18/2011 11/06/2016 Last Assessment & Plan: Takes ultram for chronic pains, myalgias and joint pains. Takes 2 tabs qid. States this does help with her pains. Dysphagia 10/25/2010 12/01/2013 Hypokalemia 10/04/2010 12/01/2013 Left Plantar fasciitis 10/04/201012/01 Bipolar affective 04/27/2010 05/21/2018 Overview: Continue Diazepam 10mg BID CRI (chronic renal insufficiency) 09/30/2009 12/01/2013 ANEMIA BLOOD LOSS CHRONIC 12/23/2007 documented as of this encounter (statuses as of 01/25/2023) [facility] History of Past illness Narrative* Problem Noted Date Diagnosed Date Resolved Date Chronic obstructive pulmonary disease 12/26/2015 03/15/2016 Coronary artery disease invo lving [place] coronary artery of [place] heart with angina pectoris 12/26/2015 06/07/2017 Atypical chest pain 12/26/2015 06/08/19 18 Chronic right shoulder pain 07/14/2015 11/06/2016 SUMMARY 03/27/2015 10/25/2017 Overview: Leyda David John is a 54 year old female with COPD, asthma, sleep apnea, HTN, but no other previously known cardiac disease (echo 08/2014 showed normal LV function only mild MR and trivial TR with normal nuclear stress test) Now a transfer from OSH for due to Echo findings of severe MR and LHC with lesion of the ramus intermediate. She has been transferred to [facility] due to moderate disease in the ramus intermedius. NSTEMI (non-ST elevated myoc ardial infarction) 03/25/2015 05/21/2018 Overview: ASA 81 Atorvastatin 40 Lisinopril 40 Last Assessment & Plan: She takes the lisinopril the statin and the ASA. Neck pain, chronic 02/22/2015 7 Non-ST elevation myocardial infarction (NSTEMI), initial episode of care 08/04/20142018 Overview: -Pt transferred to [facility] for NSTEMI? In setting of EKG abnormality and elevated troponin I, thought to be primary ACS vs 2/2 to increase in cardiac demand in setting of sepsis -PT never had CP OSH w/u -EKG --T wave changes in lateral leads -Elevated troponin I, Ck MB WNL -ECHO/Doppler --> Segmental wall motion abnormalities, EF 50%, +2 MR & TR, RVSP 38, no shunt -CTA 07/26/2014 --> No PE, no aortic dissection, Diffuse pulmonary infiltrates, cardiomegaly with evidence of RSHF -Started on Heparin gtt RF: HTN, ex smoker, FH of CAD (father <60 years), Off statins for long time, till restarted in the OSH, denies DM Plan -Trend CE x3 -High intensity statins, Lipitor 80mg QD -Tight BP control -Will hold off heparin, given that the pt is CP free -ECHO -Depending on ECHO results will proceed with either NM stress test or LHC Last Assessment & Plan: PMR (polymyalgia rheumatica) 07/20/2013 05/21/2018 Polymyositis 09/29/2011 05/21/2018 Elevated blood pressure 09/09/201111/04 Chronic pain 04/18/2011 11/06/2016 Last Assessment & Plan: Takes ultram for chronic pains, myalgias and joint pains. Takes 2 tabs qid. States this does help with her pains. Dysphagia 10/25/2010 12/01/2013 Hypokalemia 10/04/2010 12/01/2013 Left Plantar fasciitis 10/04/201012/01 Bipolar affective 04/27/2010 05/21/2018 Overview: Continue Diazepam 10mg BID CRI (chronic renal insufficiency) 09/30/2009 12/01/2013 ANEMIA BLOOD LOSS CHRONIC 12/23/2007 documented as of this encounter (statuses as of 01/28/2023) [facility] History of Past illness Narrative* Problem Noted Date Diagnosed Date Resolved Date Chronic obstructive pulmonary disease 12/26/2015 03/15/2016 Coronary artery disease invo lving [place] coronary artery of [place] heart with angina pectoris 12/26/2015 06/07/2017 Atypical chest pain 12/26/2015 06/08/19 18 Chronic right shoulder pain 07/14/2015 11/06/2016 SUMMARY 03/27/2015 10/25/2017 Overview: Leyda Lopez is a 54 year old female with COPD, asthma, sleep apnea, HTN, but no other previously known cardiac disease (echo 08/2014 showed normal LV function only mild MR and trivial TR with normal nuclear stress test) Now a transfer from OSH for due to Echo findings of severe MR and LHC with lesion of the ramus intermediate. She has been transferred to [facility] due to moderate disease in the ramus intermedius. NSTEMI (non-ST elevated myoc ardial infarction) 03/25/2015 05/21/2018 Overview: ASA 81 Atorvastatin 40 Lisinopril 40 Last Assessment & Plan: She takes the lisinopril the statin and the ASA. Neck pain, chronic 02/22/2015 7 Non-ST elevation myocardial infarction (NSTEMI), initial episode of care 08/04/20142018 Overview: -Pt transferred to [facility] for NSTEMI? In setting of EKG abnormality and elevated troponin I, thought to be primary ACS vs 2/2 to increase in cardiac demand in setting of sepsis -PT never had CP OSH w/u -EKG --T wave changes in lateral leads -Elevated troponin I, Ck MB WNL -ECHO/Doppler --> Segmental wall motion abnormalities, EF 50%, +2 MR & TR, RVSP 38, no shunt -CTA 07/26/2014 --> No PE, no aortic dissection, Diffuse pulmonary infiltrates, cardiomegaly with evidence of RSHF -Started on Heparin gtt RF: HTN, ex smoker, FH of CAD (father <60 years), Off statins for long time, till restarted in the OSH, denies DM Plan -Trend CE x3 -High intensity statins, Lipitor 80mg QD -Tight BP control -Will hold off heparin, given that the pt is CP free -ECHO -Depending on ECHO results will proceed with either NM stress test or LHC Last Assessment & Plan: PMR (polymyalgia rheumatica) 07/20/2013 05/21/2018 Polymyositis 09/29/2011 05/21/2018 Elevated blood pressure 09/09/201111/04 Chronic pain 04/18/2011 11/06/2016 Last Assessment & Plan: Takes ultram for chronic pains, myalgias and joint pains. Takes 2 tabs qid. States this does help with her pains. Dysphagia 10/25/2010 12/01/2013 Hypokalemia 10/04/2010 12/01/2013 Left Plantar fasciitis 10/04/201012/01 Bipolar affective 04/27/2010 05/21/2018 Overview: Continue Diazepam 10mg BID CRI (chronic renal insufficiency) 09/30/2009 12/01/2013 ANEMIA BLOOD LOSS CHRONIC 12/23/2007 documented as of this encounter (statuses as of 02/07/2023) [facility] History of Past illness Narrative* Problem Noted Date Diagnosed Date Resolved Date Chronic obstructive pulmonary disease 12/26/2015 03/15/2016 Coronary artery disease invo lving [place] coronary artery of [place] heart with angina pectoris 12/26/2015 06/07/2017 Atypical chest pain 12/26/2015 06/08/19 18 Chronic right shoulder pain 07/14/2015 11/06/2016 SUMMARY 03/27/2015 10/25/2017 Overview: Leyda Lpoez is a 54 year old female with COPD, asthma, sleep apnea, HTN, but no other previously known cardiac disease (echo 08/2014 showed normal LV function only mild MR and trivial TR with normal nuclear stress test) Now a transfer from OSH for due to Echo findings of severe MR and LHC with lesion of the ramus intermediate. She has been transferred to [facility] due to moderate disease in the ramus intermedius. NSTEMI (non-ST elevated myoc ardial infarction) 03/25/2015 05/21/2018 Overview: ASA 81 Atorvastatin 40 Lisinopril 40 Last Assessment & Plan: She takes the lisinopril the statin and the ASA. Neck pain, chronic 02/22/2015 7 Non-ST elevation myocardial infarction (NSTEMI), initial episode of care 08/04/20142018 Overview: -Pt transferred to [facility] for NSTEMI? In setting of EKG abnormality and elevated troponin I, thought to be primary ACS vs 2/2 to increase in cardiac demand in setting of sepsis -PT never had CP OSH w/u -EKG --T wave changes in lateral leads -Elevated troponin I, Ck MB WNL -ECHO/Doppler --> Segmental wall motion abnormalities, EF 50%, +2 MR & TR, RVSP 38, no shunt -CTA 07/26/2014 --> No PE, no aortic dissection, Diffuse pulmonary infiltrates, cardiomegaly with evidence of RSHF -Started on Heparin gtt RF: HTN, ex smoker, FH of CAD (father <60 years), Off statins for long time, till restarted in the OSH, denies DM Plan -Trend CE x3 -High intensity statins, Lipitor 80mg QD -Tight BP control -Will hold off heparin, given that the pt is CP free -ECHO -Depending on ECHO results will proceed with either NM stress test or LHC Last Assessment & Plan: PMR (polymyalgia rheumatica) 07/20/2013 05/21/2018 Polymyositis 09/29/2011 05/21/2018 Elevated blood pressure 09/09/201111/04 Chronic pain 04/18/2011 11/06/2016 Last Assessment & Plan: Takes ultram for chronic pains, myalgias and joint pains. Takes 2 tabs qid. States this does help with her pains. Dysphagia 10/25/2010 12/01/2013 Hypokalemia 10/04/2010 12/01/2013 Left Plantar fasciitis 10/04/201012/01 Bipolar affective 04/27/2010 05/21/2018 Overview: Continue Diazepam 10mg BID CRI (chronic renal insufficiency) 09/30/2009 12/01/2013 ANEMIA BLOOD LOSS CHRONIC 12/23/2007 documented as of this encounter (statuses as of 04/15/2023) [facility] History of Past illness Narrative* Problem Noted Date Diagnosed Date Resolved Date Chronic obstructive pulmonary disease 12/26/2015 03/15/2016 Coronary artery disease invo lving [place] coronary artery of [place] heart with angina pectoris 12/26/2015 06/07/2017 Atypical chest pain 12/26/2015 06/08/19 18 Chronic right shoulder pain 07/14/2015 11/06/2016 SUMMARY 03/27/2015 10/25/2017 Overview: Leyda Lopez is a 54 year old female with COPD, asthma, sleep apnea, HTN, but no other previously known cardiac disease (echo 08/2014 showed normal LV function only mild MR and trivial TR with normal nuclear stress test) Now a transfer from OSH for due to Echo findings of severe MR and LHC with lesion of the ramus intermediate. She has been transferred to [facility] due to moderate disease in the ramus intermedius. NSTEMI (non-ST elevated myoc ardial infarction) 03/25/2015 05/21/2018 Overview: ASA 81 Atorvastatin 40 Lisinopril 40 Last Assessment & Plan: She takes the lisinopril the statin and the ASA. Neck pain, chronic 02/22/2015 7 Non-ST elevation myocardial infarction (NSTEMI), initial episode of care 08/04/20142018 Overview: -Pt transferred to [facility] for NSTEMI? In setting of EKG abnormality and elevated troponin I, thought to be primary ACS vs 2/2 to increase in cardiac demand in setting of sepsis -PT never had CP OSH w/u -EKG --T wave changes in lateral leads -Elevated troponin I, Ck MB WNL -ECHO/Doppler --> Segmental wall motion abnormalities, EF 50%, +2 MR & TR, RVSP 38, no shunt -CTA 07/26/2014 --> No PE, no aortic dissection, Diffuse pulmonary infiltrates, cardiomegaly with evidence of RSHF -Started on Heparin gtt RF: HTN, ex smoker, FH of CAD (father <60 years), Off statins for long time, till restarted in the OSH, denies DM Plan -Trend CE x3 -High intensity statins, Lipitor 80mg QD -Tight BP control -Will hold off heparin, given that the pt is CP free -ECHO -Depending on ECHO results will proceed with either NM stress test or LHC Last Assessment & Plan: PMR (polymyalgia rheumatica) 07/20/2013 05/21/2018 Polymyositis 09/29/2011 05/21/2018 Elevated blood pressure 09/09/201111/04 Chronic pain 04/18/2011 11/06/2016 Last Assessment & Plan: Takes ultram for chronic pains, myalgias and joint pains. Takes 2 tabs qid. States this does help with her pains. Dysphagia 10/25/2010 12/01/2013 Hypokalemia 10/04/2010 12/01/2013 Left Plantar fasciitis 10/04/201012/01 Bipolar affective 04/27/2010 05/21/2018 Overview: Continue Diazepam 10mg BID CRI (chronic renal insufficiency) 09/30/2009 12/01/2013 ANEMIA BLOOD LOSS CHRONIC 12/23/2007 documented as of this encounter (statuses as of 04/15/2023) [facility] History of Past illness Narrative* Problem Noted Date Diagnosed Date Resolved Date Chronic obstructive pulmonary disease 12/26/2015 03/15/2016 Coronary artery disease invo lving [place] coronary artery of [place] heart with angina pectoris 12/26/2015 06/07/2017 Atypical chest pain 12/26/2015 06/08/19 18 Chronic right shoulder pain 07/14/2015 11/06/2016 SUMMARY 03/27/2015 10/25/2017 Overview: Leyda Lopez is a 54 year old female with COPD, asthma, sleep apnea, HTN, but no other previously known cardiac disease (echo 08/2014 showed normal LV function only mild MR and trivial TR with normal nuclear stress test) Now a transfer from OSH for due to Echo findings of severe MR and LHC with lesion of the ramus intermediate. She has been transferred to [facility] due to moderate disease in the ramus intermedius. NSTEMI (non-ST elevated myoc ardial infarction) 03/25/2015 05/21/2018 Overview: ASA 81 Atorvastatin 40 Lisinopril 40 Last Assessment & Plan: She takes the lisinopril the statin and the ASA. Neck pain, chronic 02/22/2015 7 Non-ST elevation myocardial infarction (NSTEMI), initial episode of care 08/04/20142018 Overview: -Pt transferred to [facility] for NSTEMI? In setting of EKG abnormality and elevated troponin I, thought to be primary ACS vs 2/2 to increase in cardiac demand in setting of sepsis -PT never had CP OSH w/u -EKG --T wave changes in lateral leads -Elevated troponin I, Ck MB WNL -ECHO/Doppler --> Segmental wall motion abnormalities, EF 50%, +2 MR & TR, RVSP 38, no shunt -CTA 07/26/2014 --> No PE, no aortic dissection, Diffuse pulmonary infiltrates, cardiomegaly with evidence of RSHF -Started on Heparin gtt RF: HTN, ex smoker, FH of CAD (father <60 years), Off statins for long time, till restarted in the OSH, denies DM Plan -Trend CE x3 -High intensity statins, Lipitor 80mg QD -Tight BP control -Will hold off heparin, given that the pt is CP free -ECHO -Depending on ECHO results will proceed with either NM stress test or LHC Last Assessment & Plan: PMR (polymyalgia rheumatica) 07/20/2013 05/21/2018 Polymyositis 09/29/2011 05/21/2018 Elevated blood pressure 09/09/201111/04 Chronic pain 04/18/2011 11/06/2016 Last Assessment & Plan: Takes ultram for chronic pains, myalgias and joint pains. Takes 2 tabs qid. States this does help with her pains. Dysphagia 10/25/2010 12/01/2013 Hypokalemia 10/04/2010 12/01/2013 Left Plantar fasciitis 10/04/201012/01 Bipolar affective 04/27/2010 05/21/2018 Overview: Continue Diazepam 10mg BID CRI (chronic renal insufficiency) 09/30/2009 12/01/2013 ANEMIA BLOOD LOSS CHRONIC 12/23/2007 documented as of this encounter (statuses as of 04/15/2023) [facility] History of Past illness Narrative* Problem Noted Date Diagnosed Date Resolved Date Chronic obstructive pulmonary disease 12/26/2015 03/15/2016 Coronary artery disease invo lving [place] coronary artery of [place] heart with angina pectoris 12/26/2015 06/07/2017 Atypical chest pain 12/26/2015 06/08/19 18 Chronic right shoulder pain 07/14/2015 11/06/2016 SUMMARY 03/27/2015 10/25/2017 Overview: Leyda David John is a 54 year old female with COPD, asthma, sleep apnea, HTN, but no other previously known cardiac disease (echo 08/2014 showed normal LV function only mild MR and trivial TR with normal nuclear stress test) Now a transfer from OSH for due to Echo findings of severe MR and LHC with lesion of the ramus intermediate. She has been transferred to [facility] due to moderate disease in the ramus intermedius. NSTEMI (non-ST elevated myoc ardial infarction) 03/25/2015 05/21/2018 Overview: ASA 81 Atorvastatin 40 Lisinopril 40 Last Assessment & Plan: She takes the lisinopril the statin and the ASA. Neck pain, chronic 02/22/2015 7 Non-ST elevation myocardial infarction (NSTEMI), initial episode of care 08/04/20142018 Overview: -Pt transferred to [facility] for NSTEMI? In setting of EKG abnormality and elevated troponin I, thought to be primary ACS vs 2/2 to increase in cardiac demand in setting of sepsis -PT never had CP OSH w/u -EKG --T wave changes in lateral leads -Elevated troponin I, Ck MB WNL -ECHO/Doppler --> Segmental wall motion abnormalities, EF 50%, +2 MR & TR, RVSP 38, no shunt -CTA 07/26/2014 --> No PE, no aortic dissection, Diffuse pulmonary infiltrates, cardiomegaly with evidence of RSHF -Started on Heparin gtt RF: HTN, ex smoker, FH of CAD (father <60 years), Off statins for long time, till restarted in the OSH, denies DM Plan -Trend CE x3 -High intensity statins, Lipitor 80mg QD -Tight BP control -Will hold off heparin, given that the pt is CP free -ECHO -Depending on ECHO results will proceed with either NM stress test or LHC Last Assessment & Plan: PMR (polymyalgia rheumatica) 07/20/2013 05/21/2018 Polymyositis 09/29/2011 05/21/2018 Elevated blood pressure 09/09/201111/04 Chronic pain 04/18/2011 11/06/2016 Last Assessment & Plan: Takes ultram for chronic pains, myalgias and joint pains. Takes 2 tabs qid. States this does help with her pains. Dysphagia 10/25/2010 12/01/2013 Hypokalemia 10/04/2010 12/01/2013 Left Plantar fasciitis 10/04/201012/01 Bipolar affective 04/27/2010 05/21/2018 Overview: Continue Diazepam 10mg BID CRI (chronic renal insufficiency) 09/30/2009 12/01/2013 ANEMIA BLOOD LOSS CHRONIC 12/23/2007 documented as of this encounter (statuses as of 05/03/2023) [facility] History of Past illness Narrative* Problem Noted Date Diagnosed Date Resolved Date Chronic obstructive pulmonary disease 12/26/2015 03/15/2016 Coronary artery disease invo lving [place] coronary artery of [place] heart with angina pectoris 12/26/2015 06/07/2017 Atypical chest pain 12/26/2015 06/08/19 18 Chronic right shoulder pain 07/14/2015 11/06/2016 SUMMARY 03/27/2015 10/25/2017 Overview: Leyda Lopez is a 54 year old female with COPD, asthma, sleep apnea, HTN, but no other previously known cardiac disease (echo 08/2014 showed normal LV function only mild MR and trivial TR with normal nuclear stress test) Now a transfer from [facility]SH for due to Echo findings of severe MR and LHC with lesion of the ramus intermediate. She has been transferred to [facility] due to moderate disease in the ramus intermedius. NSTEMI (non-ST elevated myoc ardial infarction) 03/25/2015 05/21/2018 Overview: ASA 81 Atorvastatin 40 Lisinopril 40 Last Assessment & Plan: She takes the lisinopril the statin and the ASA. Neck pain, chronic 02/22/2015 7 Non-ST elevation myocardial infarction (NSTEMI), initial episode of care 08/04/20142018 Overview: -Pt transferred to [facility] for NSTEMI? In setting of EKG abnormality and elevated troponin I, thought to be primary ACS vs 2/2 to increase in cardiac demand in setting of sepsis -PT never had CP OSH w/u -EKG --T wave changes in lateral leads -Elevated troponin I, Ck MB WNL -ECHO/Doppler --> Segmental wall motion abnormalities, EF 50%, +2 MR & TR, RVSP 38, no shunt -CTA 07/26/2014 --> No PE, no aortic dissection, Diffuse pulmonary infiltrates, cardiomegaly with evidence of RSHF -Started on Heparin gtt RF: HTN, ex smoker, FH of CAD (father <60 years), Off statins for long time, till restarted in the OSH, denies DM Plan -Trend CE x3 -High intensity statins, Lipitor 80mg QD -Tight BP control -Will hold off heparin, given that the pt is CP free -ECHO -Depending on ECHO results will proceed with either NM stress test or LHC Last Assessment & Plan: PMR (polymyalgia rheumatica) 07/20/2013 05/21/2018 Polymyositis 09/29/2011 05/21/2018 Elevated blood pressure 09/09/201111/04 Chronic pain 04/18/2011 11/06/2016 Last Assessment & Plan: Takes ultram for chronic pains, myalgias and joint pains. Takes 2 tabs qid. States this does help with her pains. Dysphagia 10/25/2010 12/01/2013 Hypokalemia 10/04/2010 12/01/2013 Left Plantar fasciitis 10/04/201012/01 Bipolar affective 04/27/2010 05/21/2018 Overview: Continue Diazepam 10mg BID CRI (chronic renal insufficiency) 09/30/2009 12/01/2013 ANEMIA BLOOD LOSS CHRONIC 12/23/2007 documented as of this encounter (statuses as of 05/03/2023) [facility] History of Past illness Narrative* Problem Noted Date Diagnosed Date Resolved Date Chronic obstructive pulmonary disease 12/26/2015 03/15/2016 Coronary artery disease invo lving [place] coronary artery of [place] heart with angina pectoris 12/26/2015 06/07/2017 Atypical chest pain 12/26/2015 06/08/19 18 Chronic right shoulder pain 07/14/2015 11/06/2016 SUMMARY 03/27/2015 10/25/2017 Overview: Leyda Lopez is a 54 year old female with COPD, asthma, sleep apnea, HTN, but no other previously known cardiac disease (echo 08/2014 showed normal LV function only mild MR and trivial TR with normal nuclear stress test) Now a transfer from [facility]SH for due to Echo findings of severe MR and LHC with lesion of the ramus intermediate. She has been transferred to [facility] due to moderate disease in the ramus intermedius. NSTEMI (non-ST elevated myoc ardial infarction) 03/25/2015 05/21/2018 Overview: ASA 81 Atorvastatin 40 Lisinopril 40 Last Assessment & Plan: She takes the lisinopril the statin and the ASA. Neck pain, chronic 02/22/2015 7 Non-ST elevation myocardial infarction (NSTEMI), initial episode of care 08/04/20142018 Overview: -Pt transferred to [facility] for NSTEMI? In setting of EKG abnormality and elevated troponin I, thought to be primary ACS vs 2/2 to increase in cardiac demand in setting of sepsis -PT never had CP OSH w/u -EKG --T wave changes in lateral leads -Elevated troponin I, Ck MB WNL -ECHO/Doppler --> Segmental wall motion abnormalities, EF 50%, +2 MR & TR, RVSP 38, no shunt -CTA 07/26/2014 --> No PE, no aortic dissection, Diffuse pulmonary infiltrates, cardiomegaly with evidence of RSHF -Started on Heparin gtt RF: HTN, ex smoker, FH of CAD (father <60 years), Off statins for long time, till restarted in the OSH, denies DM Plan -Trend CE x3 -High intensity statins, Lipitor 80mg QD -Tight BP control -Will hold off heparin, given that the pt is CP free -ECHO -Depending on ECHO results will proceed with either NM stress test or LHC Last Assessment & Plan: PMR (polymyalgia rheumatica) 07/20/2013 05/21/2018 Polymyositis 09/29/2011 05/21/2018 Elevated blood pressure 09/09/201111/04 Chronic pain 04/18/2011 11/06/2016 Last Assessment & Plan: Takes ultram for chronic pains, myalgias and joint pains. Takes 2 tabs qid. States this does help with her pains. Dysphagia 10/25/2010 12/01/2013 Hypokalemia 10/04/2010 12/01/2013 Left Plantar fasciitis 10/04/201012/01 Bipolar affective 04/27/2010 05/21/2018 Overview: Continue Diazepam 10mg BID CRI (chronic renal insufficiency) 09/30/2009 12/01/2013 ANEMIA BLOOD LOSS CHRONIC 12/23/2007 documented as of this encounter (statuses as of 05/09/2023) [facility] History of Past illness Narrative* Problem Noted Date Diagnosed Date Resolved Date Chronic obstructive pulmonary disease 12/26/2015 03/15/2016 Coronary artery disease invo lving [place] coronary artery of [place] heart with angina pectoris 12/26/2015 06/07/2017 Atypical chest pain 12/26/2015 06/08/19 18 Chronic right shoulder pain 07/14/2015 11/06/2016 SUMMARY 03/27/2015 10/25/2017 Overview: Leyda Lopez is a 54 year old female with COPD, asthma, sleep apnea, HTN, but no other previously known cardiac disease (echo 08/2014 showed normal LV function only mild MR and trivial TR with normal nuclear stress test) Now a transfer from [facility] for due to Echo findings of severe MR and LHC with lesion of the ramus intermediate. She has been transferred to [facility] due to moderate disease in the ramus intermedius. NSTEMI (non-ST elevated myoc ardial infarction) 03/25/2015 05/21/2018 Overview: ASA 81 Atorvastatin 40 Lisinopril 40 Last Assessment & Plan: She takes the lisinopril the statin and the ASA. Neck pain, chronic 02/22/2015 7 Non-ST elevation myocardial infarction (NSTEMI), initial episode of care 08/04/20142018 Overview: -Pt transferred to [facility] for NSTEMI? In setting of EKG abnormality and elevated troponin I, thought to be primary ACS vs 2/2 to increase in cardiac demand in setting of sepsis -PT never had CP OSH w/u -EKG --T wave changes in lateral leads -Elevated troponin I, Ck MB WNL -ECHO/Doppler --> Segmental wall motion abnormalities, EF 50%, +2 MR & TR, RVSP 38, no shunt -CTA 07/26/2014 --> No PE, no aortic dissection, Diffuse pulmonary infiltrates, cardiomegaly with evidence of RSHF -Started on Heparin gtt RF: HTN, ex smoker, FH of CAD (father <60 years), Off statins for long time, till restarted in the OSH, denies DM Plan -Trend CE x3 -High intensity statins, Lipitor 80mg QD -Tight BP control -Will hold off heparin, given that the pt is CP free -ECHO -Depending on ECHO results will proceed with either NM stress test or LHC Last Assessment & Plan: PMR (polymyalgia rheumatica) 07/20/2013 05/21/2018 Polymyositis 09/29/2011 05/21/2018 Elevated blood pressure 09/09/201111/04 Chronic pain 04/18/2011 11/06/2016 Last Assessment & Plan: Takes ultram for chronic pains, myalgias and joint pains. Takes 2 tabs qid. States this does help with her pains. Dysphagia 10/25/2010 12/01/2013 Hypokalemia 10/04/2010 12/01/2013 Left Plantar fasciitis 10/04/201012/01 Bipolar affective 04/27/2010 05/21/2018 Overview: Continue Diazepam 10mg BID CRI (chronic renal insufficiency) 09/30/2009 12/01/2013 ANEMIA BLOOD LOSS CHRONIC 12/23/2007 documented as of this encounter (statuses as of 05/10/2023) [facility] History of Past illness Narrative* Problem Noted Date Diagnosed Date Resolved Date Chronic obstructive pulmonary disease 12/26/2015 03/15/2016 Coronary artery disease invo lving [place] coronary artery of [place] heart with angina pectoris 12/26/2015 06/07/2017 Atypical chest pain 12/26/2015 06/08/19 18 Chronic right shoulder pain 07/14/2015 11/06/2016 SUMMARY 03/27/2015 10/25/2017 Overview: Leyda Lopez is a 54 year old female with COPD, asthma, sleep apnea, HTN, but no other previously known cardiac disease (echo 08/2014 showed normal LV function only mild MR and trivial TR with normal nuclear stress test) Now a transfer from OSH for due to Echo findings of severe MR and LHC with lesion of the ramus intermediate. She has been transferred to [facility] due to moderate disease in the ramus intermedius. NSTEMI (non-ST elevated myoc ardial infarction) 03/25/2015 05/21/2018 Overview: ASA 81 Atorvastatin 40 Lisinopril 40 Last Assessment & Plan: She takes the lisinopril the statin and the ASA. Neck pain, chronic 02/22/2015 7 Non-ST elevation myocardial infarction (NSTEMI), initial episode of care 08/04/20142018 Overview: -Pt transferred to [facility] for NSTEMI? In setting of EKG abnormality and elevated troponin I, thought to be primary ACS vs 2/2 to increase in cardiac demand in setting of sepsis -PT never had CP OSH w/u -EKG --T wave changes in lateral leads -Elevated troponin I, Ck MB WNL -ECHO/Doppler --> Segmental wall motion abnormalities, EF 50%, +2 MR & TR, RVSP 38, no shunt -CTA 07/26/2014 --> No PE, no aortic dissection, Diffuse pulmonary infiltrates, cardiomegaly with evidence of RSHF -Started on Heparin gtt RF: HTN, ex smoker, FH of CAD (father <60 years), Off statins for long time, till restarted in the OSH, denies DM Plan -Trend CE x3 -High intensity statins, Lipitor 80mg QD -Tight BP control -Will hold off heparin, given that the pt is CP free -ECHO -Depending on ECHO results will proceed with either NM stress test or LHC Last Assessment & Plan: PMR (polymyalgia rheumatica) 07/20/2013 05/21/2018 Polymyositis 09/29/2011 05/21/2018 Elevated blood pressure 09/09/201111/04 Chronic pain 04/18/2011 11/06/2016 Last Assessment & Plan: Takes ultram for chronic pains, myalgias and joint pains. Takes 2 tabs qid. States this does help with her pains. Dysphagia 10/25/2010 12/01/2013 Hypokalemia 10/04/2010 12/01/2013 Left Plantar fasciitis 10/04/201012/01 Bipolar affective 04/27/2010 05/21/2018 Overview: Continue Diazepam 10mg BID CRI (chronic renal insufficiency) 09/30/2009 12/01/2013 ANEMIA BLOOD LOSS CHRONIC 12/23/2007 documented as of this encounter (statuses as of 05/10/2023) [facility] History of Past illness Narrative* Problem Noted Date Diagnosed Date Resolved Date Chronic obstructive pulmonary disease 12/26/2015 03/15/2016 Coronary artery disease invo lving [place] coronary artery of [place] heart with angina pectoris 12/26/2015 06/07/2017 Atypical chest pain 12/26/2015 06/08/19 18 Chronic right shoulder pain 07/14/2015 11/06/2016 SUMMARY 03/27/2015 10/25/2017 Overview: Leyda Lopez is a 54 year old female with COPD, asthma, sleep apnea, HTN, but no other previously known cardiac disease (echo 08/2014 showed normal LV function only mild MR and trivial TR with normal nuclear stress test) Now a transfer from OSH for due to Echo findings of severe MR and LHC with lesion of the ramus intermediate. She has been transferred to [facility] due to moderate disease in the ramus intermedius. NSTEMI (non-ST elevated myoc ardial infarction) 03/25/2015 05/21/2018 Overview: ASA 81 Atorvastatin 40 Lisinopril 40 Last Assessment & Plan: She takes the lisinopril the statin and the ASA. Neck pain, chronic 02/22/2015 7 Non-ST elevation myocardial infarction (NSTEMI), initial episode of care 08/04/20142018 Overview: -Pt transferred to [facility] for NSTEMI? In setting of EKG abnormality and elevated troponin I, thought to be primary ACS vs 2/2 to increase in cardiac demand in setting of sepsis -PT never had CP OSH w/u -EKG --T wave changes in lateral leads -Elevated troponin I, Ck MB WNL -ECHO/Doppler --> Segmental wall motion abnormalities, EF 50%, +2 MR & TR, RVSP 38, no shunt -CTA 07/26/2014 --> No PE, no aortic dissection, Diffuse pulmonary infiltrates, cardiomegaly with evidence of RSHF -Started on Heparin gtt RF: HTN, ex smoker, FH of CAD (father <60 years), Off statins for long time, till restarted in the OSH, denies DM Plan -Trend CE x3 -High intensity statins, Lipitor 80mg QD -Tight BP control -Will hold off heparin, given that the pt is CP free -ECHO -Depending on ECHO results will proceed with either NM stress test or LHC Last Assessment & Plan: PMR (polymyalgia rheumatica) 07/20/2013 05/21/2018 Polymyositis 09/29/2011 05/21/2018 Elevated blood pressure 09/09/201111/04 Chronic pain 04/18/2011 11/06/2016 Last Assessment & Plan: Takes ultram for chronic pains, myalgias and joint pains. Takes 2 tabs qid. States this does help with her pains. Dysphagia 10/25/2010 12/01/2013 Hypokalemia 10/04/2010 12/01/2013 Left Plantar fasciitis 10/04/201012/01 Bipolar affective 04/27/2010 05/21/2018 Overview: Continue Diazepam 10mg BID CRI (chronic renal insufficiency) 09/30/2009 12/01/2013 ANEMIA BLOOD LOSS CHRONIC 12/23/2007 documented as of this encounter (statuses as of 05/17/2023) [facility] History of Past illness Narrative* Problem Noted Date Diagnosed Date Resolved Date Chronic obstructive pulmonary disease 12/26/2015 03/15/2016 Coronary artery disease invo lving [place] coronary artery of [place] heart with angina pectoris 12/26/2015 06/07/2017 Atypical chest pain 12/26/2015 06/08/19 18 Chronic right shoulder pain 07/14/2015 11/06/2016 SUMMARY 03/27/2015 10/25/2017 Overview: Leyda Lopez is a 54 year old female with COPD, asthma, sleep apnea, HTN, but no other previously known cardiac disease (echo 08/2014 showed normal LV function only mild MR and trivial TR with normal nuclear stress test) Now a transfer from OSH for due to Echo findings of severe MR and LHC with lesion of the ramus intermediate. She has been transferred to [facility] due to moderate disease in the ramus intermedius. NSTEMI (non-ST elevated myoc ardial infarction) 03/25/2015 05/21/2018 Overview: ASA 81 Atorvastatin 40 Lisinopril 40 Last Assessment & Plan: She takes the lisinopril the statin and the ASA. Neck pain, chronic 02/22/2015 7 Non-ST elevation myocardial infarction (NSTEMI), initial episode of care 08/04/20142018 Overview: -Pt transferred to [facility] for NSTEMI? In setting of EKG abnormality and elevated troponin I, thought to be primary ACS vs 2/2 to increase in cardiac demand in setting of sepsis -PT never had CP OSH w/u -EKG --T wave changes in lateral leads -Elevated troponin I, Ck MB WNL -ECHO/Doppler --> Segmental wall motion abnormalities, EF 50%, +2 MR & TR, RVSP 38, no shunt -CTA 07/26/2014 --> No PE, no aortic dissection, Diffuse pulmonary infiltrates, cardiomegaly with evidence of RSHF -Started on Heparin gtt RF: HTN, ex smoker, FH of CAD (father <60 years), Off statins for long time, till restarted in the OSH, denies DM Plan -Trend CE x3 -High intensity statins, Lipitor 80mg QD -Tight BP control -Will hold off heparin, given that the pt is CP free -ECHO -Depending on ECHO results will proceed with either NM stress test or LHC Last Assessment & Plan: PMR (polymyalgia rheumatica) 07/20/2013 05/21/2018 Polymyositis 09/29/2011 05/21/2018 Elevated blood pressure 09/09/201111/04 Chronic pain 04/18/2011 11/06/2016 Last Assessment & Plan: Takes ultram for chronic pains, myalgias and joint pains. Takes 2 tabs qid. States this does help with her pains. Dysphagia 10/25/2010 12/01/2013 Hypokalemia 10/04/2010 12/01/2013 Left Plantar fasciitis 10/04/201012/01 Bipolar affective 04/27/2010 05/21/2018 Overview: Continue Diazepam 10mg BID CRI (chronic renal insufficiency) 09/30/2009 12/01/2013 ANEMIA BLOOD LOSS CHRONIC 12/23/2007 documented as of this encounter (statuses as of 05/24/2023) [facility] History of Past illness Narrative* Problem Noted Date Diagnosed Date Resolved Date Chronic obstructive pulmonary disease 12/26/2015 03/15/2016 Coronary artery disease invo lving [place] coronary artery of [place] heart with angina pectoris 12/26/2015 06/07/2017 Atypical chest pain 12/26/2015 06/08/19 18 Chronic right shoulder pain 07/14/2015 11/06/2016 SUMMARY 03/27/2015 10/25/2017 Overview: Leyda Lopez is a 54 year old female with COPD, asthma, sleep apnea, HTN, but no other previously known cardiac disease (echo 08/2014 showed normal LV function only mild MR and trivial TR with normal nuclear stress test) Now a transfer from OSH for due to Echo findings of severe MR and LHC with lesion of the ramus intermediate. She has been transferred to [facility] due to moderate disease in the ramus intermedius. NSTEMI (non-ST elevated myoc ardial infarction) 03/25/2015 05/21/2018 Overview: ASA 81 Atorvastatin 40 Lisinopril 40 Last Assessment & Plan: She takes the lisinopril the statin and the ASA. Neck pain, chronic 02/22/2015 7 Non-ST elevation myocardial infarction (NSTEMI), initial episode of care 08/04/20142018 Overview: -Pt transferred to [facility] for NSTEMI? In setting of EKG abnormality and elevated troponin I, thought to be primary ACS vs 2/2 to increase in cardiac demand in setting of sepsis -PT never had CP OSH w/u -EKG --T wave changes in lateral leads -Elevated troponin I, Ck MB WNL -ECHO/Doppler --> Segmental wall motion abnormalities, EF 50%, +2 MR & TR, RVSP 38, no shunt -CTA 07/26/2014 --> No PE, no aortic dissection, Diffuse pulmonary infiltrates, cardiomegaly with evidence of RSHF -Started on Heparin gtt RF: HTN, ex smoker, FH of CAD (father <60 years), Off statins for long time, till restarted in the OSH, denies DM Plan -Trend CE x3 -High intensity statins, Lipitor 80mg QD -Tight BP control -Will hold off heparin, given that the pt is CP free -ECHO -Depending on ECHO results will proceed with either NM stress test or LHC Last Assessment & Plan: PMR (polymyalgia rheumatica) 07/20/2013 05/21/2018 Polymyositis 09/29/2011 05/21/2018 Elevated blood pressure 09/09/201111/04 Chronic pain 04/18/2011 11/06/2016 Last Assessment & Plan: Takes ultram for chronic pains, myalgias and joint pains. Takes 2 tabs qid. States this does help with her pains. Dysphagia 10/25/2010 12/01/2013 Hypokalemia 10/04/2010 12/01/2013 Left Plantar fasciitis 10/04/201012/01 Bipolar affective 04/27/2010 05/21/2018 Overview: Continue Diazepam 10mg BID CRI (chronic renal insufficiency) 09/30/2009 12/01/2013 ANEMIA BLOOD LOSS CHRONIC 12/23/2007 documented as of this encounter (statuses as of 06/10/2023) [facility] History of Past illness Narrative* Problem Noted Date Diagnosed Date Resolved Date Chronic obstructive pulmonary disease 12/26/2015 03/15/2016 Coronary artery disease invo lving [place] coronary artery of [place] heart with angina pectoris 12/26/2015 06/07/2017 Atypical chest pain 12/26/2015 06/08/19 18 Chronic right shoulder pain 07/14/2015 11/06/2016 SUMMARY 03/27/2015 10/25/2017 Overview: Leyda Lopez is a 54 year old female with COPD, asthma, sleep apnea, HTN, but no other previously known cardiac disease (echo 08/2014 showed normal LV function only mild MR and trivial TR with normal nuclear stress test) Now a transfer from OSH for due to Echo findings of severe MR and LHC with lesion of the ramus intermediate. She has been transferred to [facility] due to moderate disease in the ramus intermedius. NSTEMI (non-ST elevated myoc ardial infarction) 03/25/2015 05/21/2018 Overview: ASA 81 Atorvastatin 40 Lisinopril 40 Last Assessment & Plan: She takes the lisinopril the statin and the ASA. Neck pain, chronic 02/22/2015 7 Non-ST elevation myocardial infarction (NSTEMI), initial episode of care 08/04/20142018 Overview: -Pt transferred to [facility] for NSTEMI? In setting of EKG abnormality and elevated troponin I, thought to be primary ACS vs 2/2 to increase in cardiac demand in setting of sepsis -PT never had CP OSH w/u -EKG --T wave changes in lateral leads -Elevated troponin I, Ck MB WNL -ECHO/Doppler --> Segmental wall motion abnormalities, EF 50%, +2 MR & TR, RVSP 38, no shunt -CTA 07/26/2014 --> No PE, no aortic dissection, Diffuse pulmonary infiltrates, cardiomegaly with evidence of RSHF -Started on Heparin gtt RF: HTN, ex smoker, FH of CAD (father <60 years), Off statins for long time, till restarted in the OSH, denies DM Plan -Trend CE x3 -High intensity statins, Lipitor 80mg QD -Tight BP control -Will hold off heparin, given that the pt is CP free -ECHO -Depending on ECHO results will proceed with either NM stress test or LHC Last Assessment & Plan: PMR (polymyalgia rheumatica) 07/20/2013 05/21/2018 Polymyositis 09/29/2011 05/21/2018 Elevated blood pressure 09/09/201111/04 Chronic pain 04/18/2011 11/06/2016 Last Assessment & Plan: Takes ultram for chronic pains, myalgias and joint pains. Takes 2 tabs qid. States this does help with her pains. Dysphagia 10/25/2010 12/01/2013 Hypokalemia 10/04/2010 12/01/2013 Left Plantar fasciitis 10/04/201012/01 Bipolar affective 04/27/2010 05/21/2018 Overview: Continue Diazepam 10mg BID CRI (chronic renal insufficiency) 09/30/2009 12/01/2013 ANEMIA BLOOD LOSS CHRONIC 12/23/2007 documented as of this encounter (statuses as of 06/13/2023) [facility] Diagnosis Moderate episode of recurrent major depressive disorder (HCC) Anxiety Anxiety state, unspecified [facility] Diagnosis Fibromyalgia Mylagia and myositis, unspecified [facility]* Diagnosis Essential hypertension- Primary Unspecified essential hypertension Poor short term memory Memory loss Chronic pain of multiple joints Pain in joint, multiple sites [facility] Diagnosis Fibromyalgia Mylagia and myositis, unspecified [facility] Diagnosis Mixed hyperlipidemia Essential hypertension Unspecified essential hypertension [facility] Diagnosis Essential hypertension Unspecified essential hypertension [facility] Essential hypertension- Primary Unspecified essential hypertension Fibromyalgia Mylagia and myositis, unspecified Chronic pain of multiple joints Pain in joint, multiple sites Poor short term memory Memory loss [facility] Diagnosis Screening cholesterol level- Primary Screening for lipoid disorders [facility] Diagnosis Fibromyalgia Mylagia and myositis, unspecified [facility]* Diagnosis Allergic rhinitis, unspecified seasonality, unspecified trigger [facility] Diagnosis Moderate episode of recurrent major depressive disorder (HCC) Anxiety Anxiety state, unspecified [facility] Diagnosis Moderate episode of recurrent major depressive disorder (HCC) Anxiety Anxiety state, unspecified [facility] Diagnosis Mixed hyperlipidemia [facility] Diagnosis Encounter for screening mammogram for breast cancer [facility] Diagnosis Screening cholesterol level Screening for lipoid disorders [facility]* Diagnosis Treatment not available- Primary Procedure not carried out for other reasons documented in this encounter [facility] note* Diagnosis Insomnia, unspecified type documented in this encounter [facility] note* Diagnosis Insomnia, unspecified type documented in this encounter [facility] note* Diagnosis Essential hypertension Unspecified essential hypertension documented in this encounter [facility] note* Diagnosis Essential hypertension Unspecified essential hypertension documented in this encounter [facility] note* Diagnosis Essential hypertension Unspecified essential hypertension documented in this encounter [facility] note* Diagnosis Essential hypertension- Primary Unspecified essential hypertension Migraine without aura and without status migrainosus, not intractable Migraine without aura, without mention of intractable migraine without mention of status migrainosus Chronic pain of multiple joints Pain in joint, multiple sites Arthritis Arthropathy, unspecified, site unspecified Fibromyalgia Mylagia and myositis, unspecified Colon cancer screening Special screening for malignant neoplasms, colon documented in this encounter [facility] note* Diagnosis Diarrhea, unspecified type- Primary Right upper quadrant abdominal tenderness without rebound tenderness Heartburn Nausea Nausea alone documented in this encounter [facility] note* Diagnosis Elevated lipase- Primary Other nonspecific abnormal serum enzyme levels Elevated amylase Other nonspecific abnormal serum enzyme levels RUQ pain Abdominal pain, right upper quadrant Nausea Nausea alone Chronic diarrhea Diarrhea Tendinitis of thumb Other tenosynovitis of hand and wrist documented in this encounter [facility] note* Diagnosis Screening cholesterol level Screening for lipoid disorders documented in this encounter [facility] note* Diagnosis Pain syndrome, chronic- Primary Chronic pain syndrome Chronic obstructive pulmonary disease, unspecified COPD type (HCC) Gait abnormality Abnormality of gait documented in this encounter [facility] note* Diagnosis Fibromyalgia Mylagia and myositis, unspecified documented in this encounter [facility] note* Diagnosis Allergic rhinitis, unspecified seasonality, unspecified trigger [facility] Diagnosis Tendinitis of thumb Other tenosynovitis of hand and wrist [facility]* Diagnosis Screening cholesterol level Screening for lipoid disorders [facility]* Diagnosis Hyperlipidemia Other and unspecified hyperlipidemia [facility]* Diagnosis Tendinitis of thumb Other tenosynovitis of hand and wrist documented in this encounter [facility] note* Diagnosis Tendinitis of thumb Other tenosynovitis of hand and wrist [facility]* Diagnosis Acute on chronic diastolic congestive heart failure (HCC)- Primary Acute on chronic diastolic heart failure Stage 3 chronic kidney disease, unspecified whether stage 3a or 3b CKD (HCC) Centrilobular emphysema (HCC) Other emphysema documented in this encounter [facility] note* Diagnosis Hyperlipidemia Other and unspecified hyperlipidemia [facility]* Diagnosis Mixed hyperlipidemia documented in this encounter [facility] note* Diagnosis Essential hypertension- Primary Unspecified essential hypertension Hyperlipidemia, unspecified hyperlipidemia type Fibromyalgia Mylagia and myositis, unspecified Medication management Encounter for long-term (current) use of other medications Epigastric pain Abdominal pain, epigastric Diarrhea, unspecified type Encounter for screening for osteoporosis Special screening for osteoporosis Asymptomatic postmenopausal status Chronic back pain, unspecified back location, unspecified back pain laterality Kyphosis, unspecified kyphosis type, unspecified spinal region Panic disorder without agoraphobia Moderate episode of recurrent major depressive disorder (HCC) Dizziness Dizziness and giddiness Light sensitivity Acute dermatitis due to solar radiation documented in this encounter [facility] note* Diagnosis Mixed hyperlipidemia documented in this encounter [facility] noteNo assessment information availableWMercy [facility] Work Phone: Evaluation note* Diagnosis Essential hypertension Unspecified essential hypertension [facility]* Diagnosis Encounter for screening for osteoporosis Special screening for osteoporosis Asymptomatic postmenopausal status documented in this encounter [facility] note* Diagnosis Elevated lipase Other nonspecific abnormal serum enzyme levels Elevated amylase Other nonspecific abnormal serum enzyme levels RUQ pain Abdominal pain, right upper quadrant Nausea Nausea alone Chronic diarrhea Diarrhea [facility]* Diagnosis Fibromyalgia Mylagia and myositis, unspecified [facility]* Diagnosis Hyperlipidemia Other and unspecified hyperlipidemia CKD (chronic kidney disease) stage 3, GFR 30-59 ml/min (HCC) Chronic kidney disease, Stage III (moderate) documented in this encounter [facility] note* Diagnosis Essential hypertension Unspecified essential hypertension [facility]* Diagnosis Nausea Nausea alone documented in this encounter [facility] note* Diagnosis Nausea Nausea alone documented in this encounter [facility] note* Diagnosis Moderate episode of recurrent major depressive disorder (HCC)- Primary Anxiety Anxiety state, unspecified Essential hypertension Unspecified essential hypertension [facility]* Diagnosis Mixed hyperlipidemia [facility]* Diagnosis Osteoporosis, post menopausal- Primary Encounter for long-term (current) use of medications Encounter for long-term (current) use of other medications [facility] Diagnosis Allergic rhinitis, unspecified seasonality, unspecified trigger [facility] Diagnosis Onset Date Resolution Status Acute hypokalemia acute Community acquired pneumonia acute Hypoxia acute RSV infection acute [facility] Work Phone: Evaluation note* Diagnosis Onset Date Resolution Status Acute hypokalemia acute Community acquired pneumonia acute Hypoxia acute RSV infection acute COPD (chronic obstructive pulmonary disease) [facility] Work Phone: Evaluation note* Diagnosis Mixed hyperlipidemia [facility] Diagnosis Onset Date Resolution Status Hypoxia acute Acute hypokalemia resolved Community acquired pneumonia resolved RSV infection resolved Pneumonia acute Acute and chronic respiratory failure with hypoxia chronic COPD (chronic obstructive pulmonary disease) chronic HTN (hypertension) [facility] Work Phone: Evaluation note* Diagnosis Community acquired pneumonia, unspecified laterality- Primary Acute on chronic respiratory failure with hypoxia (HCC) Stage 3 chronic kidney disease, unspecified whether stage 3a or 3b CKD (HCC) Centrilobular emphysema (HCC) Other emphysema Acute on chronic diastolic congestive heart failure (HCC) Acute on chronic diastolic heart failure Essential hypertension Unspecified essential hypertension [facility]* Diagnosis Fibromyalgia Mylagia and myositis, unspecified [facility]* Diagnosis Asthma with chronic obstructive pulmonary disease (COPD) (HCC)- Primary Chronic obstructive asthma, unspecified Community acquired pneumonia of right lower lobe of lung Chronic hypoxemic respiratory failure (HCC) Chronic respiratory failure Former cigarette smoker Personal history of tobacco use, presenting hazards to health [facility] Diagnosis Essential hypertension Unspecified essential hypertension Mixed hyperlipidemia [facility]* Diagnosis Moderate episode of recurrent major depressive disorder (HCC) Anxiety Anxiety state, unspecified [facility] Diagnosis Fibromyalgia Mylagia and myositis, unspecified [facility]* Diagnosis Essential hypertension Unspecified essential hypertension [facility] Diagnosis Encounter for screening mammogram for breast cancer [facility] Diagnosis Primary osteoarthritis of first carpometacarpal joint of right hand- Primary Primary localized osteoarthrosis, hand [facility] Diagnosis Pain Generalized pain [facility] Diagnosis Primary osteoarthritis of first carpometacarpal joint of right hand- Primary Primary localized osteoarthrosis, hand Primary osteoarthritis of first carpometacarpal joint of right hand Primary localized osteoarthrosis, hand [facility]* Diagnosis Nasal septal abscess- Primary Other diseases of nasal cavity and sinuses Primary osteoarthritis of first carpometacarpal joint of right hand Primary localized osteoarthrosis, hand [facility]* Diagnosis Essential hypertension Unspecified essential hypertension Primary osteoarthritis of first carpometacarpal joint of right hand Primary localized osteoarthrosis, hand [facility]* Diagnosis Obstructive sleep apnea- Primary Obstructive sleep apnea (adult) (pediatric) NSTEMI (non-ST elevated myocardial infarction) ([facility]) Acute myocardial infarction, subendocardial infarction, episode of care unspecified Essential hypertension Unspecified essential hypertension Encounter for screening mammogram for high-risk patient Mixed hyperlipidemia Obstructive sleep apnea syndrome Obstructive sleep apnea (adult) (pediatric) Acute on chronic diastolic congestive heart failure (HCC) Acute on chronic diastolic heart failure Depressive disorder, not elsewhere classified- Primary Essential hypertension Unspecified essential hypertension Mixed hyperlipidemia Umbilical hernia without obstruction and without gangrene Cervical radiculitis Brachial neuritis or radiculitis nos Moderate episode of recurrent major depressive disorder (HCC) Paranoia (HCC) Delusional disorder Essential hypertension- Primary Unspecified essential hypertension Panic disorder without agoraphobia Pyorrhea Chronic periodontitis, unspecified Hypokalemia Hypopotassemia Nausea Nausea alone [facility] Diagnosis Obstructive sleep apnea- Primary Obstructive sleep apnea (adult) (pediatric) NSTEMI (non-ST elevated myocardial infarction) ([facility]) Acute myocardial infarction, subendocardial infarction, episode of care unspecified Essential hypertension Unspecified essential hypertension Encounter for screening mammogram for high-risk patient Mixed hyperlipidemia Obstructive sleep apnea syndrome Obstructive sleep apnea (adult) (pediatric) Acute on chronic diastolic congestive heart failure (HCC) Acute on chronic diastolic heart failure Depressive disorder, not elsewhere classified- Primary Essential hypertension Unspecified essential hypertension Mixed hyperlipidemia Umbilical hernia without obstruction and without gangrene Cervical radiculitis Brachial neuritis or radiculitis nos Moderate episode of recurrent major depressive disorder (HCC) Paranoia (HCC) Delusional disorder Essential hypertension- Primary Unspecified essential hypertension Panic disorder without agoraphobia Pyorrhea Chronic periodontitis, unspecified Hypokalemia Hypopotassemia Essential hypertension Unspecified essential hypertension documented in this encounter [facility] note* Diagnosis Obstructive sleep apnea- Primary Obstructive sleep apnea (adult) (pediatric) NSTEMI (non-ST elevated myocardial infarction) (HCC) Acute myocardial infarction, subendocardial infarction, episode of care unspecified Essential hypertension Unspecified essential hypertension Encounter for screening mammogram for high-risk patient Mixed hyperlipidemia Obstructive sleep apnea syndrome Obstructive sleep apnea (adult) (pediatric) Acute on chronic diastolic congestive heart failure (HCC) Acute on chronic diastolic heart failure Depressive disorder, not elsewhere classified- Primary Essential hypertension Unspecified essential hypertension Mixed hyperlipidemia Umbilical hernia without obstruction and without gangrene Cervical radiculitis Brachial neuritis or radiculitis nos Moderate episode of recurrent major depressive disorder (HCC) Paranoia (HCC) Delusional disorder Essential hypertension- Primary Unspecified essential hypertension Panic disorder without agoraphobia Pyorrhea Chronic periodontitis, unspecified Hypokalemia Hypopotassemia Acute midline thoracic back pain- Primary Essential hypertension Unspecified essential hypertension Eustachian tube dysfunction, bilateral Panic disorder without agoraphobia Acute midline thoracic back pain documented in this encounter [facility] note* Diagnosis Obstructive sleep apnea- Primary Obstructive sleep apnea (adult) (pediatric) NSTEMI (non-ST elevated myocardial infarction) (HCC) Acute myocardial infarction, subendocardial infarction, episode of care unspecified Essential hypertension Unspecified essential hypertension Encounter for screening mammogram for high-risk patient Mixed hyperlipidemia Obstructive sleep apnea syndrome Obstructive sleep apnea (adult) (pediatric) Acute on chronic diastolic congestive heart failure (HCC) Acute on chronic diastolic heart failure Depressive disorder, not elsewhere classified- Primary Essential hypertension Unspecified essential hypertension Mixed hyperlipidemia Umbilical hernia without obstruction and without gangrene Cervical radiculitis Brachial neuritis or radiculitis nos Moderate episode of recurrent major depressive disorder (HCC) Paranoia (HCC) Delusional disorder Essential hypertension- Primary Unspecified essential hypertension Panic disorder without agoraphobia Pyorrhea Chronic periodontitis, unspecified Hypokalemia Hypopotassemia Essential hypertension- Primary Unspecified essential hypertension Mixed hyperlipidemia Thoracic degenerative disc disease Degeneration of thoracic or thoracolumbar intervertebral disc Pain syndrome, chronic Chronic pain syndrome Compression deformity of vertebra Other acquired deformity of back or spine Abnormal x-ray Other nonspecific (abnormal) findings on radiological and other examinations of body structure [facility]* Diagnosis Obstructive sleep apnea- Primary Obstructive sleep apnea (adult) (pediatric) NSTEMI (non-ST elevated myocardial infarction) (HCC) Acute myocardial infarction, subendocardial infarction, episode of care unspecified Essential hypertension Unspecified essential hypertension Encounter for screening mammogram for high-risk patient Mixed hyperlipidemia Obstructive sleep apnea syndrome Obstructive sleep apnea (adult) (pediatric) Acute on chronic diastolic congestive heart failure (HCC) Acute on chronic diastolic heart failure Depressive disorder, not elsewhere classified- Primary Essential hypertension Unspecified essential hypertension Mixed hyperlipidemia Umbilical hernia without obstruction and without gangrene Cervical radiculitis Brachial neuritis or radiculitis nos Moderate episode of recurrent major depressive disorder (HCC) Paranoia (HCC) Delusional disorder Essential hypertension- Primary Unspecified essential hypertension Panic disorder without agoraphobia Pyorrhea Chronic periodontitis, unspecified Hypokalemia Hypopotassemia Acute midline thoracic back pain Osteoporosis, post menopausal- Primary Fibromyalgia Mylagia and myositis, unspecified documented in this encounter [facility] note* Diagnosis Obstructive sleep apnea- Primary Obstructive sleep apnea (adult) (pediatric) NSTEMI (non-ST elevated myocardial infarction) (HCC) Acute myocardial infarction, subendocardial infarction, episode of care unspecified Essential hypertension Unspecified essential hypertension Encounter for screening mammogram for high-risk patient Mixed hyperlipidemia Obstructive sleep apnea syndrome Obstructive sleep apnea (adult) (pediatric) Acute on chronic diastolic congestive heart failure (HCC) Acute on chronic diastolic heart failure Depressive disorder, not elsewhere classified- Primary Essential hypertension Unspecified essential hypertension Mixed hyperlipidemia Umbilical hernia without obstruction and without gangrene Cervical radiculitis Brachial neuritis or radiculitis nos Moderate episode of recurrent major depressive disorder (HCC) Paranoia (HCC) Delusional disorder Essential hypertension- Primary Unspecified essential hypertension Panic disorder without agoraphobia Pyorrhea Chronic periodontitis, unspecified Hypokalemia Hypopotassemia Osteoporosis, post menopausal- Primary Fibromyalgia Mylagia and myositis, unspecified [facility]* Diagnosis Obstructive sleep apnea- Primary Obstructive sleep apnea (adult) (pediatric) NSTEMI (non-ST elevated myocardial infarction) (HCC) Acute myocardial infarction, subendocardial infarction, episode of care unspecified Essential hypertension Unspecified essential hypertension Encounter for screening mammogram for high-risk patient Mixed hyperlipidemia Obstructive sleep apnea syndrome Obstructive sleep apnea (adult) (pediatric) Acute on chronic diastolic congestive heart failure (HCC) Acute on chronic diastolic heart failure Depressive disorder, not elsewhere classified- Primary Essential hypertension Unspecified essential hypertension Mixed hyperlipidemia Umbilical hernia without obstruction and without gangrene Cervical radiculitis Brachial neuritis or radiculitis nos Moderate episode of recurrent major depressive disorder (HCC) Paranoia (HCC) Delusional disorder Essential hypertension- Primary Unspecified essential hypertension Panic disorder without agoraphobia Pyorrhea Chronic periodontitis, unspecified Hypokalemia Hypopotassemia Pain in joint, multiple sites [facility]* Diagnosis Obstructive sleep apnea- Primary Obstructive sleep apnea (adult) (pediatric) NSTEMI (non-ST elevated myocardial infarction) (HCC) Acute myocardial infarction, subendocardial infarction, episode of care unspecified Essential hypertension Unspecified essential hypertension Encounter for screening mammogram for high-risk patient Mixed hyperlipidemia Obstructive sleep apnea syndrome Obstructive sleep apnea (adult) (pediatric) Acute on chronic diastolic congestive heart failure (HCC) Acute on chronic diastolic heart failure Depressive disorder, not elsewhere classified- Primary Essential hypertension Unspecified essential hypertension Mixed hyperlipidemia Umbilical hernia without obstruction and without gangrene Cervical radiculitis Brachial neuritis or radiculitis nos Moderate episode of recurrent major depressive disorder (HCC) Paranoia (HCC) Delusional disorder Essential hypertension- Primary Unspecified essential hypertension Panic disorder without agoraphobia Pyorrhea Chronic periodontitis, unspecified Hypokalemia Hypopotassemia Chronic back pain, unspecified back location, unspecified back pain laterality Kyphosis, unspecified kyphosis type, unspecified spinal region [facility]* Diagnosis Obstructive sleep apnea- Primary Obstructive sleep apnea (adult) (pediatric) NSTEMI (non-ST elevated myocardial infarction) (HCC) Acute myocardial infarction, subendocardial infarction, episode of care unspecified Essential hypertension Unspecified essential hypertension Encounter for screening mammogram for high-risk patient Mixed hyperlipidemia Obstructive sleep apnea syndrome Obstructive sleep apnea (adult) (pediatric) Acute on chronic diastolic congestive heart failure (HCC) Acute on chronic diastolic heart failure Depressive disorder, not elsewhere classified- Primary Essential hypertension Unspecified essential hypertension Mixed hyperlipidemia Umbilical hernia without obstruction and without gangrene Cervical radiculitis Brachial neuritis or radiculitis nos Moderate episode of recurrent major depressive disorder (HCC) Paranoia (HCC) Delusional disorder Essential hypertension- Primary Unspecified essential hypertension Panic disorder without agoraphobia Pyorrhea Chronic periodontitis, unspecified Hypokalemia Hypopotassemia Shortness of breath [facility] Diagnosis Obstructive sleep apnea- Primary Obstructive sleep apnea (adult) (pediatric) NSTEMI (non-ST elevated myocardial infarction) (HCC) Acute myocardial infarction, subendocardial infarction, episode of care unspecified Essential hypertension Unspecified essential hypertension Encounter for screening mammogram for high-risk patient Mixed hyperlipidemia Obstructive sleep apnea syndrome Obstructive sleep apnea (adult) (pediatric) Acute on chronic diastolic congestive heart failure (HCC) Acute on chronic diastolic heart failure Depressive disorder, not elsewhere classified- Primary Essential hypertension Unspecified essential hypertension Mixed hyperlipidemia Umbilical hernia without obstruction and without gangrene Cervical radiculitis Brachial neuritis or radiculitis nos Moderate episode of recurrent major depressive disorder (HCC) Paranoia (HCC) Delusional disorder Essential hypertension- Primary Unspecified essential hypertension Panic disorder without agoraphobia Pyorrhea Chronic periodontitis, unspecified Hypokalemia Hypopotassemia Essential hypertension- Primary Unspecified essential hypertension Thoracic degenerative disc disease Degeneration of thoracic or thoracolumbar intervertebral disc Pain syndrome, chronic Chronic pain syndrome Encounter for immunization Need for other specified prophylactic vaccination against single bacterial disease [facility] Diagnosis Obstructive sleep apnea- Primary Obstructive sleep apnea (adult) (pediatric) NSTEMI (non-ST elevated myocardial infarction) (HCC) Acute myocardial infarction, subendocardial infarction, episode of care unspecified Essential hypertension Unspecified essential hypertension Encounter for screening mammogram for high-risk patient Mixed hyperlipidemia Obstructive sleep apnea syndrome Obstructive sleep apnea (adult) (pediatric) Acute on chronic diastolic congestive heart failure (HCC) Acute on chronic diastolic heart failure Depressive disorder, not elsewhere classified- Primary Essential hypertension Unspecified essential hypertension Mixed hyperlipidemia Umbilical hernia without obstruction and without gangrene Cervical radiculitis Brachial neuritis or radiculitis nos Moderate episode of recurrent major depressive disorder (HCC) Paranoia (HCC) Delusional disorder Essential hypertension- Primary Unspecified essential hypertension Panic disorder without agoraphobia Pyorrhea Chronic periodontitis, unspecified Hypokalemia Hypopotassemia Stage 3 chronic kidney disease, unspecified whether stage 3a or 3b CKD ([facility])- Primary documented in this encounter [facility] note* Diagnosis Obstructive sleep apnea- Primary Obstructive sleep apnea (adult) (pediatric) NSTEMI (non-ST elevated myocardial infarction) ([facility]) Acute myocardial infarction, subendocardial infarction, episode of care unspecified Essential hypertension Unspecified essential hypertension Encounter for screening mammogram for high-risk patient Mixed hyperlipidemia Obstructive sleep apnea syndrome Obstructive sleep apnea (adult) (pediatric) Acute on chronic diastolic congestive heart failure (HCC) Acute on chronic diastolic heart failure Depressive disorder, not elsewhere classified- Primary Essential hypertension Unspecified essential hypertension Mixed hyperlipidemia Umbilical hernia without obstruction and without gangrene Cervical radiculitis Brachial neuritis or radiculitis nos Moderate episode of recurrent major depressive disorder (HCC) Paranoia (HCC) Delusional disorder Essential hypertension- Primary Unspecified essential hypertension Panic disorder without agoraphobia Pyorrhea Chronic periodontitis, unspecified Hypokalemia Hypopotassemia Pain syndrome, chronic- Primary Chronic pain syndrome documented in this encounter [facility] note* Diagnosis Obstructive sleep apnea- Primary Obstructive sleep apnea (adult) (pediatric) NSTEMI (non-ST elevated myocardial infarction) ([facility]) Acute myocardial infarction, subendocardial infarction, episode of care unspecified Essential hypertension Unspecified essential hypertension Encounter for screening mammogram for high-risk patient Mixed hyperlipidemia Obstructive sleep apnea syndrome Obstructive sleep apnea (adult) (pediatric) Acute on chronic diastolic congestive heart failure (HCC) Acute on chronic diastolic heart failure Depressive disorder, not elsewhere classified- Primary Essential hypertension Unspecified essential hypertension Mixed hyperlipidemia Umbilical hernia without obstruction and without gangrene Cervical radiculitis Brachial neuritis or radiculitis nos Moderate episode of recurrent major depressive disorder (HCC) Paranoia (HCC) Delusional disorder Essential hypertension- Primary Unspecified essential hypertension Panic disorder without agoraphobia Pyorrhea Chronic periodontitis, unspecified Hypokalemia Hypopotassemia Hypokalemia- Primary Hypopotassemia [facility]* Diagnosis Obstructive sleep apnea- Primary Obstructive sleep apnea (adult) (pediatric) NSTEMI (non-ST elevated myocardial infarction) (HCC) Acute myocardial infarction, subendocardial infarction, episode of care unspecified Essential hypertension Unspecified essential hypertension Encounter for screening mammogram for high-risk patient Mixed hyperlipidemia Obstructive sleep apnea syndrome Obstructive sleep apnea (adult) (pediatric) Acute on chronic diastolic congestive heart failure (HCC) Acute on chronic diastolic heart failure Depressive disorder, not elsewhere classified- Primary Essential hypertension Unspecified essential hypertension Mixed hyperlipidemia Umbilical hernia without obstruction and without gangrene Cervical radiculitis Brachial neuritis or radiculitis nos Moderate episode of recurrent major depressive disorder (HCC) Paranoia (HCC) Delusional disorder Essential hypertension- Primary Unspecified essential hypertension Panic disorder without agoraphobia Pyorrhea Chronic periodontitis, unspecified Hypokalemia Hypopotassemia Essential hypertension Unspecified essential hypertension [facility]* Diagnosis Obstructive sleep apnea- Primary Obstructive sleep apnea (adult) (pediatric) NSTEMI (non-ST elevated myocardial infarction) (HCC) Acute myocardial infarction, subendocardial infarction, episode of care unspecified Essential hypertension Unspecified essential hypertension Encounter for screening mammogram for high-risk patient Mixed hyperlipidemia Obstructive sleep apnea syndrome Obstructive sleep apnea (adult) (pediatric) Acute on chronic diastolic congestive heart failure (HCC) Acute on chronic diastolic heart failure Depressive disorder, not elsewhere classified- Primary Essential hypertension Unspecified essential hypertension Mixed hyperlipidemia Umbilical hernia without obstruction and without gangrene Cervical radiculitis Brachial neuritis or radiculitis nos Moderate episode of recurrent major depressive disorder (HCC) Paranoia (HCC) Delusional disorder Essential hypertension- Primary Unspecified essential hypertension Panic disorder without agoraphobia Pyorrhea Chronic periodontitis, unspecified Hypokalemia Hypopotassemia Thoracic degenerative disc disease Degeneration of thoracic or thoracolumbar intervertebral disc Pain syndrome, chronic Chronic pain syndrome Compression deformity of vertebra Other acquired deformity of back or spine [facility] Diagnosis Obstructive sleep apnea- Primary Obstructive sleep apnea (adult) (pediatric) NSTEMI (non-ST elevated myocardial infarction) (HCC) Acute myocardial infarction, subendocardial infarction, episode of care unspecified Essential hypertension Unspecified essential hypertension Encounter for screening mammogram for high-risk patient Mixed hyperlipidemia Obstructive sleep apnea syndrome Obstructive sleep apnea (adult) (pediatric) Acute on chronic diastolic congestive heart failure (HCC) Acute on chronic diastolic heart failure Depressive disorder, not elsewhere classified- Primary Essential hypertension Unspecified essential hypertension Mixed hyperlipidemia Umbilical hernia without obstruction and without gangrene Cervical radiculitis Brachial neuritis or radiculitis nos Moderate episode of recurrent major depressive disorder (HCC) Paranoia (HCC) Delusional disorder Essential hypertension- Primary Unspecified essential hypertension Panic disorder without agoraphobia Pyorrhea Chronic periodontitis, unspecified Hypokalemia Hypopotassemia Nausea Nausea alone documented in this encounter [facility] note* Diagnosis Obstructive sleep apnea- Primary Obstructive sleep apnea (adult) (pediatric) NSTEMI (non-ST elevated myocardial infarction) (HCC) Acute myocardial infarction, subendocardial infarction, episode of care unspecified Essential hypertension Unspecified essential hypertension Encounter for screening mammogram for high-risk patient Mixed hyperlipidemia Obstructive sleep apnea syndrome Obstructive sleep apnea (adult) (pediatric) Acute on chronic diastolic congestive heart failure (HCC) Acute on chronic diastolic heart failure Depressive disorder, not elsewhere classified- Primary Essential hypertension Unspecified essential hypertension Mixed hyperlipidemia Umbilical hernia without obstruction and without gangrene Cervical radiculitis Brachial neuritis or radiculitis nos Moderate episode of recurrent major depressive disorder (HCC) Paranoia (HCC) Delusional disorder Essential hypertension- Primary Unspecified essential hypertension Panic disorder without agoraphobia Pyorrhea Chronic periodontitis, unspecified Hypokalemia Hypopotassemia Trigger middle finger of right hand- Primary Trigger finger (acquired) documented in this encounter [facility] note* Diagnosis Obstructive sleep apnea- Primary Obstructive sleep apnea (adult) (pediatric) NSTEMI (non-ST elevated myocardial infarction) (HCC) Acute myocardial infarction, subendocardial infarction, episode of care unspecified Essential hypertension Unspecified essential hypertension Encounter for screening mammogram for high-risk patient Mixed hyperlipidemia Obstructive sleep apnea syndrome Obstructive sleep apnea (adult) (pediatric) Acute on chronic diastolic congestive heart failure (HCC) Acute on chronic diastolic heart failure Depressive disorder, not elsewhere classified- Primary Essential hypertension Unspecified essential hypertension Mixed hyperlipidemia Umbilical hernia without obstruction and without gangrene Cervical radiculitis Brachial neuritis or radiculitis nos Moderate episode of recurrent major depressive disorder (HCC) Paranoia (HCC) Delusional disorder Essential hypertension- Primary Unspecified essential hypertension Panic disorder without agoraphobia Pyorrhea Chronic periodontitis, unspecified Hypokalemia Hypopotassemia CKD (chronic kidney disease) stage 3, GFR 30-59 ml/min (HCC) Chronic kidney disease, Stage III (moderate) Hyperlipidemia Other and unspecified [facility] Diagnosis Obstructive sleep apnea- Primary Obstructive sleep apnea (adult) (pediatric) NSTEMI (non-ST elevated myocardial infarction) (HCC) Acute myocardial infarction, subendocardial infarction, episode of care unspecified Essential hypertension Unspecified essential hypertension Encounter for screening mammogram for high-risk patient Mixed hyperlipidemia Obstructive sleep apnea syndrome Obstructive sleep apnea (adult) (pediatric) Acute on chronic diastolic congestive heart failure (HCC) Acute on chronic diastolic heart failure Depressive disorder, not elsewhere classified- Primary Essential hypertension Unspecified essential hypertension Mixed hyperlipidemia Umbilical hernia without obstruction and without gangrene Cervical radiculitis Brachial neuritis or radiculitis nos Moderate episode of recurrent major depressive disorder (HCC) Paranoia (HCC) Delusional disorder Essential hypertension- Primary Unspecified essential hypertension Panic disorder without agoraphobia Pyorrhea Chronic periodontitis, unspecified Hypokalemia Hypopotassemia Essential hypertension Unspecified essential hypertension [facility] Diagnosis Obstructive sleep apnea- Primary Obstructive sleep apnea (adult) (pediatric) NSTEMI (non-ST elevated myocardial infarction) (HCC) Acute myocardial infarction, subendocardial infarction, episode of care unspecified Essential hypertension Unspecified essential hypertension Encounter for screening mammogram for high-risk patient Mixed hyperlipidemia Obstructive sleep apnea syndrome Obstructive sleep apnea (adult) (pediatric) Acute on chronic diastolic congestive heart failure (HCC) Acute on chronic diastolic heart failure Depressive disorder, not elsewhere classified- Primary Essential hypertension Unspecified essential hypertension Mixed hyperlipidemia Umbilical hernia without obstruction and without gangrene Cervical radiculitis Brachial neuritis or radiculitis nos Moderate episode of recurrent major depressive disorder (HCC) Paranoia (HCC) Delusional disorder Essential hypertension- Primary Unspecified essential hypertension Panic disorder without agoraphobia Pyorrhea Chronic periodontitis, unspecified Hypokalemia Hypopotassemia Nausea Nausea alone documented in this encounter [facility] note* Diagnosis Obstructive sleep apnea- Primary Obstructive sleep apnea (adult) (pediatric) NSTEMI (non-ST elevated myocardial infarction) (HCC) Acute myocardial infarction, subendocardial infarction, episode of care unspecified Essential hypertension Unspecified essential hypertension Encounter for screening mammogram for high-risk patient Mixed hyperlipidemia Obstructive sleep apnea syndrome Obstructive sleep apnea (adult) (pediatric) Acute on chronic diastolic congestive heart failure (HCC) Acute on chronic diastolic heart failure Depressive disorder, not elsewhere classified- Primary Essential hypertension Unspecified essential hypertension Mixed hyperlipidemia Umbilical hernia without obstruction and without gangrene Cervical radiculitis Brachial neuritis or radiculitis nos Moderate episode of recurrent major depressive disorder (HCC) Paranoia (HCC) Delusional disorder Essential hypertension- Primary Unspecified essential hypertension Panic disorder without agoraphobia Pyorrhea Chronic periodontitis, unspecified Hypokalemia Hypopotassemia Pain syndrome, chronic Chronic pain syndrome [facility] Diagnosis Obstructive sleep apnea- Primary Obstructive sleep apnea (adult) (pediatric) NSTEMI (non-ST elevated myocardial infarction) (HCC) Acute myocardial infarction, subendocardial infarction, episode of care unspecified Essential hypertension Unspecified essential hypertension Encounter for screening mammogram for high-risk patient Mixed hyperlipidemia Obstructive sleep apnea syndrome Obstructive sleep apnea (adult) (pediatric) Acute on chronic diastolic congestive heart failure (HCC) Acute on chronic diastolic heart failure Depressive disorder, not elsewhere classified- Primary Essential hypertension Unspecified essential hypertension Mixed hyperlipidemia Umbilical hernia without obstruction and without gangrene Cervical radiculitis Brachial neuritis or radiculitis nos Moderate episode of recurrent major depressive disorder (HCC) Paranoia (HCC) Delusional disorder Essential hypertension- Primary Unspecified essential hypertension Panic disorder without agoraphobia Pyorrhea Chronic periodontitis, unspecified Hypokalemia Hypopotassemia Essential hypertension Unspecified essential hypertension [facility] Diagnosis Obstructive sleep apnea- Primary Obstructive sleep apnea (adult) (pediatric) NSTEMI (non-ST elevated myocardial infarction) (HCC) Acute myocardial infarction, subendocardial infarction, episode of care unspecified Essential hypertension Unspecified essential hypertension Encounter for screening mammogram for high-risk patient Mixed hyperlipidemia Obstructive sleep apnea syndrome Obstructive sleep apnea (adult) (pediatric) Acute on chronic diastolic congestive heart failure (HCC) Acute on chronic diastolic heart failure Depressive disorder, not elsewhere classified- Primary Essential hypertension Unspecified essential hypertension Mixed hyperlipidemia Umbilical hernia without obstruction and without gangrene Cervical radiculitis Brachial neuritis or radiculitis nos Moderate episode of recurrent major depressive disorder (HCC) Paranoia (HCC) Delusional disorder Essential hypertension- Primary Unspecified essential hypertension Panic disorder without agoraphobia Pyorrhea Chronic periodontitis, unspecified Hypokalemia Hypopotassemia Headaches- Primary Pain syndrome, chronic Chronic pain syndrome Fibromyalgia Mylagia and myositis, unspecified Essential hypertension Unspecified essential hypertension Mixed hyperlipidemia [facility]* Diagnosis Obstructive sleep apnea- Primary Obstructive sleep apnea (adult) (pediatric) NSTEMI (non-ST elevated myocardial infarction) (HCC) Acute myocardial infarction, subendocardial infarction, episode of care unspecified Essential hypertension Unspecified essential hypertension Encounter for screening mammogram for high-risk patient Mixed hyperlipidemia Obstructive sleep apnea syndrome Obstructive sleep apnea (adult) (pediatric) Acute on chronic diastolic congestive heart failure (HCC) Acute on chronic diastolic heart failure Depressive disorder, not elsewhere classified- Primary Essential hypertension Unspecified essential hypertension Mixed hyperlipidemia Umbilical hernia without obstruction and without gangrene Cervical radiculitis Brachial neuritis or radiculitis nos Moderate episode of recurrent major depressive disorder (HCC) Paranoia (HCC) Delusional disorder Essential hypertension- Primary Unspecified essential hypertension Panic disorder without agoraphobia Pyorrhea Chronic periodontitis, unspecified Hypokalemia Hypopotassemia Essential hypertension Unspecified essential hypertension Moderate episode of recurrent major depressive disorder (HCC) Anxiety Anxiety state, unspecified [facility]* Diagnosis Obstructive sleep apnea- Primary Obstructive sleep apnea (adult) (pediatric) NSTEMI (non-ST elevated myocardial infarction) (HCC) Acute myocardial infarction, subendocardial infarction, episode of care unspecified Essential hypertension Unspecified essential hypertension Encounter for screening mammogram for high-risk patient Mixed hyperlipidemia Obstructive sleep apnea syndrome Obstructive sleep apnea (adult) (pediatric) Acute on chronic diastolic congestive heart failure (HCC) Acute on chronic diastolic heart failure Depressive disorder, not elsewhere classified- Primary Essential hypertension Unspecified essential hypertension Mixed hyperlipidemia Umbilical hernia without obstruction and without gangrene Cervical radiculitis Brachial neuritis or radiculitis nos Moderate episode of recurrent major depressive disorder (HCC) Paranoia (HCC) Delusional disorder Essential hypertension- Primary Unspecified essential hypertension Panic disorder without agoraphobia Pyorrhea Chronic periodontitis, unspecified Hypokalemia Hypopotassemia Essential hypertension Unspecified essential hypertension [facility]* Diagnosis Obstructive sleep apnea- Primary Obstructive sleep apnea (adult) (pediatric) NSTEMI (non-ST elevated myocardial infarction) (HCC) Acute myocardial infarction, subendocardial infarction, episode of care unspecified Essential hypertension Unspecified essential hypertension Encounter for screening mammogram for high-risk patient Mixed hyperlipidemia Obstructive sleep apnea syndrome Obstructive sleep apnea (adult) (pediatric) Acute on chronic diastolic congestive heart failure (HCC) Acute on chronic diastolic heart failure Depressive disorder, not elsewhere classified- Primary Essential hypertension Unspecified essential hypertension Mixed hyperlipidemia Umbilical hernia without obstruction and without gangrene Cervical radiculitis Brachial neuritis or radiculitis nos Moderate episode of recurrent major depressive disorder (HCC) Paranoia (HCC) Delusional disorder Essential hypertension- Primary Unspecified essential hypertension Panic disorder without agoraphobia Pyorrhea Chronic periodontitis, unspecified Hypokalemia Hypopotassemia Hospital discharge follow-up- Primary Other follow-up examination COPD with exacerbation (HCC) Obstructive chronic bronchitis with exacerbation Essential hypertension Unspecified essential hypertension Hyperlipidemia, unspecified hyperlipidemia type Gastroesophageal reflux disease without esophagitis Esophageal reflux Stage 3b chronic kidney disease (HCC) Moderate episode of recurrent major depressive disorder (HCC) documented in this encounter [facility] note* Diagnosis Obstructive sleep apnea- Primary Obstructive sleep apnea (adult) (pediatric) NSTEMI (non-ST elevated myocardial infarction) (HCC) Acute myocardial infarction, subendocardial infarction, episode of care unspecified Essential hypertension Unspecified essential hypertension Encounter for screening mammogram for high-risk patient Mixed hyperlipidemia Obstructive sleep apnea syndrome Obstructive sleep apnea (adult) (pediatric) Acute on chronic diastolic congestive heart failure (HCC) Acute on chronic diastolic heart failure Depressive disorder, not elsewhere classified- Primary Essential hypertension Unspecified essential hypertension Mixed hyperlipidemia Umbilical hernia without obstruction and without gangrene Cervical radiculitis Brachial neuritis or radiculitis nos Moderate episode of recurrent major depressive disorder (HCC) Paranoia (HCC) Delusional disorder Essential hypertension- Primary Unspecified essential hypertension Panic disorder without agoraphobia Pyorrhea Chronic periodontitis, unspecified Hypokalemia Hypopotassemia Asthma in adult, unspecified asthma severity, unspecified whether complicated, unspecified whether persistent- Primary Moderate persistent asthma without complication Unspecified asthma Chronic obstructive pulmonary disease, unspecified COPD type (HCC) Unspecified essential hypertension documented in this encounter [facility] note* Diagnosis Obstructive sleep apnea- Primary Obstructive sleep apnea (adult) (pediatric) NSTEMI (non-ST elevated myocardial infarction) (HCC) Acute myocardial infarction, subendocardial infarction, episode of care unspecified Essential hypertension Unspecified essential hypertension Encounter for screening mammogram for high-risk patient Mixed hyperlipidemia Obstructive sleep apnea syndrome Obstructive sleep apnea (adult) (pediatric) Acute on chronic diastolic congestive heart failure (HCC) Acute on chronic diastolic heart failure Depressive disorder, not elsewhere classified- Primary Essential hypertension Unspecified essential hypertension Mixed hyperlipidemia Umbilical hernia without obstruction and without gangrene Cervical radiculitis Brachial neuritis or radiculitis nos Moderate episode of recurrent major depressive disorder (HCC) Paranoia (HCC) Delusional disorder Essential hypertension- Primary Unspecified essential hypertension Panic disorder without agoraphobia Pyorrhea Chronic periodontitis, unspecified Hypokalemia Hypopotassemia CKD (chronic kidney disease) stage 3, GFR 30-59 ml/min (HCC) Chronic kidney disease, Stage III (moderate) Obesity Obesity, unspecified Hyperlipidemia Other and unspecified hyperlipidemia [facility] Diagnosis Obstructive sleep apnea- Primary Obstructive sleep apnea (adult) (pediatric) NSTEMI (non-ST elevated myocardial infarction) ([facility]) Acute myocardial infarction, subendocardial infarction, episode of care unspecified Essential hypertension Unspecified essential hypertension Encounter for screening mammogram for high-risk patient Mixed hyperlipidemia Obstructive sleep apnea syndrome Obstructive sleep apnea (adult) (pediatric) Acute on chronic diastolic congestive heart failure (HCC) Acute on chronic diastolic heart failure Depressive disorder, not elsewhere classified- Primary Essential hypertension Unspecified essential hypertension Mixed hyperlipidemia Umbilical hernia without obstruction and without gangrene Cervical radiculitis Brachial neuritis or radiculitis nos Moderate episode of recurrent major depressive disorder (HCC) Paranoia (HCC) Delusional disorder Essential hypertension- Primary Unspecified essential hypertension Panic disorder without agoraphobia Pyorrhea Chronic periodontitis, unspecified Hypokalemia Hypopotassemia Shortness of breath- Primary Moderate persistent asthma without complication (HCC) Unspecified asthma Chronic obstructive pulmonary disease, unspecified COPD type (HCC) Memory change Memory loss Dependence on supplemental oxygen [facility] Diagnosis Obstructive sleep apnea- Primary Obstructive sleep apnea (adult) (pediatric) NSTEMI (non-ST elevated myocardial infarction) (HCC) Acute myocardial infarction, subendocardial infarction, episode of care unspecified Essential hypertension Unspecified essential hypertension Encounter for screening mammogram for high-risk patient Mixed hyperlipidemia Obstructive sleep apnea syndrome Obstructive sleep apnea (adult) (pediatric) Acute on chronic diastolic congestive heart failure (HCC) Acute on chronic diastolic heart failure Depressive disorder, not elsewhere classified- Primary Essential hypertension Unspecified essential hypertension Mixed hyperlipidemia Umbilical hernia without obstruction and without gangrene Cervical radiculitis Brachial neuritis or radiculitis nos Moderate episode of recurrent major depressive disorder (HCC) Paranoia (HCC) Delusional disorder Essential hypertension- Primary Unspecified essential hypertension Panic disorder without agoraphobia Pyorrhea Chronic periodontitis, unspecified Hypokalemia Hypopotassemia Shortness of breath [facility]* Diagnosis Obstructive sleep apnea- Primary Obstructive sleep apnea (adult) (pediatric) NSTEMI (non-ST elevated myocardial infarction) (HCC) Acute myocardial infarction, subendocardial infarction, episode of care unspecified Essential hypertension Unspecified essential hypertension Encounter for screening mammogram for high-risk patient Mixed hyperlipidemia Obstructive sleep apnea syndrome Obstructive sleep apnea (adult) (pediatric) Acute on chronic diastolic congestive heart failure (HCC) Acute on chronic diastolic heart failure Depressive disorder, not elsewhere classified- Primary Essential hypertension Unspecified essential hypertension Mixed hyperlipidemia Umbilical hernia without obstruction and without gangrene Cervical radiculitis Brachial neuritis or radiculitis nos Moderate episode of recurrent major depressive disorder (HCC) Paranoia (HCC) Delusional disorder Essential hypertension- Primary Unspecified essential hypertension Panic disorder without agoraphobia Pyorrhea Chronic periodontitis, unspecified Hypokalemia Hypopotassemia Memory change- Primary Memory loss Light sensitivity Acute dermatitis due to solar radiation Migraine without aura, not intractable, without status migrainosus On home oxygen therapy Dependence on supplemental oxygen Uncomplicated asthma, unspecified asthma severity, unspecified whether persistent ([facility]) Marijuana use Cannabis abuse, unspecified History of substance use documented in this encounter [facility] note* Diagnosis Obstructive sleep apnea- Primary Obstructive sleep apnea (adult) (pediatric) NSTEMI (non-ST elevated myocardial infarction) ([facility]) Acute myocardial infarction, subendocardial infarction, episode of care unspecified Essential hypertension Unspecified essential hypertension Encounter for screening mammogram for high-risk patient Mixed hyperlipidemia Obstructive sleep apnea syndrome Obstructive sleep apnea (adult) (pediatric) Acute on chronic diastolic congestive heart failure (HCC) Acute on chronic diastolic heart failure Depressive disorder, not elsewhere classified- Primary Essential hypertension Unspecified essential hypertension Mixed hyperlipidemia Umbilical hernia without obstruction and without gangrene Cervical radiculitis Brachial neuritis or radiculitis nos Moderate episode of recurrent major depressive disorder (HCC) Paranoia (HCC) Delusional disorder Essential hypertension- Primary Unspecified essential hypertension Panic disorder without agoraphobia Pyorrhea Chronic periodontitis, unspecified Hypokalemia Hypopotassemia Anemia, unspecified type- Primary [facility]* Diagnosis Obstructive sleep apnea- Primary Obstructive sleep apnea (adult) (pediatric) NSTEMI (non-ST elevated myocardial infarction) (HCC) Acute myocardial infarction, subendocardial infarction, episode of care unspecified Essential hypertension Unspecified essential hypertension Encounter for screening mammogram for high-risk patient Mixed hyperlipidemia Obstructive sleep apnea syndrome Obstructive sleep apnea (adult) (pediatric) Acute on chronic diastolic congestive heart failure (HCC) Acute on chronic diastolic heart failure Depressive disorder, not elsewhere classified- Primary Essential hypertension Unspecified essential hypertension Mixed hyperlipidemia Umbilical hernia without obstruction and without gangrene Cervical radiculitis Brachial neuritis or radiculitis nos Moderate episode of recurrent major depressive disorder (HCC) Paranoia (HCC) Delusional disorder Essential hypertension- Primary Unspecified essential hypertension Panic disorder without agoraphobia Pyorrhea Chronic periodontitis, unspecified Hypokalemia Hypopotassemia Pain syndrome, chronic Chronic pain syndrome documented in this encounter [facility] note* Diagnosis Obstructive sleep apnea- Primary Obstructive sleep apnea (adult) (pediatric) NSTEMI (non-ST elevated myocardial infarction) (HCC) Acute myocardial infarction, subendocardial infarction, episode of care unspecified Essential hypertension Unspecified essential hypertension Encounter for screening mammogram for high-risk patient Mixed hyperlipidemia Obstructive sleep apnea syndrome Obstructive sleep apnea (adult) (pediatric) Acute on chronic diastolic congestive heart failure (HCC) Acute on chronic diastolic heart failure Depressive disorder, not elsewhere classified- Primary Essential hypertension Unspecified essential hypertension Mixed hyperlipidemia Umbilical hernia without obstruction and without gangrene Cervical radiculitis Brachial neuritis or radiculitis nos Moderate episode of recurrent major depressive disorder (HCC) Paranoia (HCC) Delusional disorder Essential hypertension- Primary Unspecified essential hypertension Panic disorder without agoraphobia Pyorrhea Chronic periodontitis, unspecified Hypokalemia Hypopotassemia Uncomplicated asthma, unspecified asthma severity, unspecified whether persistent (HCC)- Primary documented in this encounter [facility] note* Diagnosis Obstructive sleep apnea- Primary Obstructive sleep apnea (adult) (pediatric) NSTEMI (non-ST elevated myocardial infarction) (HCC) Acute myocardial infarction, subendocardial infarction, episode of care unspecified Essential hypertension Unspecified essential hypertension Encounter for screening mammogram for high-risk patient Mixed hyperlipidemia Obstructive sleep apnea syndrome Obstructive sleep apnea (adult) (pediatric) Acute on chronic diastolic congestive heart failure (HCC) Acute on chronic diastolic heart failure Depressive disorder, not elsewhere classified- Primary Essential hypertension Unspecified essential hypertension Mixed hyperlipidemia Umbilical hernia without obstruction and without gangrene Cervical radiculitis Brachial neuritis or radiculitis nos Moderate episode of recurrent major depressive disorder (HCC) Paranoia (HCC) Delusional disorder Essential hypertension- Primary Unspecified essential hypertension Panic disorder without agoraphobia Pyorrhea Chronic periodontitis, unspecified Hypokalemia Hypopotassemia Memory change Memory loss [facility] Author Trey Joe [facility] Note Date/Time July 26, 2024 6:34p m [facility] Medical Records Department [address] [place] [address] H&P Exam - Hospitalist 07/26/24 1827 MR#: [id number] Acct: [id number] Name: LEYDA LOPEZ Rep #:[id number] : 1960 63 From: Trey Joe DO PCP: SHMUEL PAGAN Status:REG ER Location: ED HPI - General General Date of Service: 07/26/24 Chief Complaint: abdominal pain HPI Narrative LEYDA LOPEZ, is a 63 F who presents with 2 days of abdominal pain. Abdomen has become more distended and more painful. Presented to the emergency room and she had a CAT scan that showed a small bowel obstruction. Dr. Bass general surgery, was contacted and recommended NG tube and that surgery would be consultation. They mentioned NG tube for the patient and she became very emotionally labile and declined NG tube. I went there later discusswith the patient and patient had another person in the room who was called and patient did agree to get NG tube placed. Patient states that she has had a remote history of a small bowel obstruction in the past. States that she has had a hernia repair surgery. FOR[facility]LY [facility] Medical History CHF (congestive heart failure) Anxiety Depression Kidney disease GERD (gastroesophageal reflux disease) Former smoker On home oxygen therapy Irregular heart beat Myocardial infarct Migraines Fibromyalgia NSTEMI (non-ST elevated myocardial infarction) Hypertension Rheumatoid arthritis Bipolar 1 disorder COPD (chronic obstructive pulmonary disease) COPD (chronic obstructive pulmonary disease) Home Medications ?Medication ?Instructions ?Recorded ?Last Taken ?Type albuterol sulfate 90 mcg/actuation 2 puff inhalation Q 4H PRN PRN Sob 07/26/14 06/06/17 History aerosol inhaler (ProAir HFA) &/Or Wheezing nitroglycerin 0.4 mg sublingual 0.4 mg sublingual PRN PRN CHEST 06/04/17 Unknown History tablet PAIN amitriptyline 100 mg tablet 150 mg PO QHS depresssion 10/10/22 04/30/24 History meloxicam 7.5 mg tablet 15 mg PO DAILY pain 10/10/22 04/30/24 History sumatriptan succinate 50 mg tablet 50 mg PO PRN PRN mi graine headache 10/10/22 04/30/24 History ondansetron 4 mg disintegrating 4 mg PO Q8H PRN PRN Na usea #14 tabs 11/14/22 Unknown Rx tablet atorvastatin 40 mg tablet 40 mg PO QHS Cholesterol 11/2504/30/24 History buspirone 5 mg tablet 10 mg PO TID Anxiety 4 04/30/24 History dexlansoprazole 60 mg 60 mg PO DAILY GERD 05/11/23 Unknown History capsule,biphase delayed release escitalopram oxalate 20 mg tablet 20 mg PO DAILY depre ssion 05/11/23 04/30/24 History fluticasone propionate 50 2 spray intranasal DAILY all ergies 05/11/23 04/30/24 History mcg/actuation nasal spray,suspension hydroxyzine HCl 50 mg tablet 50 mg PO TID PRN Anxiety 05/11/23 04/30/24 History pregabalin 25 mg capsule 150 mg PO BID Nerve pain 11/2504/30/24 History tizanidine 4 mg tablet 4 mg PO Q8H PRN PRN muscle s pasm 05/11/23 04/30/24 History acetaminophen 325 mg tablet 1,000 mg (3.0769 x 325 mg) PO Q8H 05/20/23 Unknown Rx PRN PRN fever/pain 1-10 #0 tabs lisinopril 40 mg tablet 40 mg PO DAILY blood pressur e 06/04/23 04/30/24 History furosemide 40 mg tablet 40 mg PO BIDCM water pill #1 20 tabs 06/06/23 Unknown Rx guaifenesin 1,200 mg tablet, 1,200 mg PO BID mucus #2 0 tabs 06/06/23 Unknown Rx extended release 12 hr (Mucus Relief ER) potassium chloride 20 mEq 20 meq PO DAILYCM diuretic u se #30 06/06/23 04/30/24 Rx tablet,extended release(part/cryst) tabs trazodone 50 mg tablet 50 mg PO QHS insomnia Unknown History azithromycin 500 mg tablet 500 mg PO DAILY 2 days #2 t abs 05/03/24 Unknown Rx prednisone 20 mg tablet 40 mg (2 x 20 mg) PO DAILY 2 days 05/05/24 Unknown Rx #4 tabs Allergy/AdvReac Type Severity Reaction Status Date / Time methotrexate Allergy Other Verified 07/26/24 13:29 nadolol Allergy Unknown Verified 07/26/24 13:29 prochlorperazine Allergy PT UNABLE Verified 07/26/24 13:29 TO RESPOND-NEEDS F/U baclofen AdvReac Other Verified 07/26/24 13:29 lorazepam (From Ativan) AdvReac Nausea Verified 07/26/24 13:29 propranolol AdvReac Other Verified 07/26/24 13:29 Family History Other COPD (chronic obstructive pulmonary disease) Social History Smoking Status: Former smoker substance use type: marijuana ROS ROS Narrative Chills. All review of systems were negative except as mentioned above in the history of present illness and the other review of systems. Vital Signs Vital Signs Vital Signs: 07/26/24 13:28 07/26/24 15:28 Temperature 36.1 C L Temperature Source Temporal Pulse Rate 90 81 Respiratory Rate 14 18 Blood Pressure 136/108 H 136/81 H Blood Pressure Mean 117 99 Pulse Ox 100 98 Oxygen Delivery Method Nasal Cannula Nasal Cannula Oxygen Flow Rate (L/min) 2 2 Weight Weight: 66.86 kg Body Mass Index (BMI) 31.8 Physical Exam Const alert Constitutional Narrative: Anxious. Cooperative. HEENT normocephalic and head/scalp atraumatic Neck no lymphadenopathy Neck Narrative: No thyromegaly Resp normal respiratory effort, no retractions, no use of accessory muscles and clearto auscultation bilaterally Cardio regular rate, regular rhythm, S1 normal heart sound and S2 normal heart sound GI GI Narrative: Distended. Hypoactive bowel sounds. Diffusely tender. Extremity normal to inspection and no clubbing, cyanosis or edema Neuro moves all extremities Sensorium / Orientation: awake and alert Psych Mood & Affect: anxious Results Lab / Micro Data Attestation: I reviewed the patient's lab results. 07/26/24 16:11 07/26/24 16:11 Labs: Laboratory Results - last 24 hr 07/26/24 16:11: WBC 7.8, RBC 3.88 L, Hgb 11.5 L, Hct 35.1 L, MCV 90.5, MCH 29.6,MCHC 32.8, RDW Std Deviation 46.1 H, RDW Coeff of Alejandra 14.0, Plt Count 258, MPV 10.5, Immature Gran % (Auto) 0.500, Neut % (Auto) 72.8 H, Lymph % (Auto) 14.4 L,[place] % (Auto) 10.3 H, Eos % (Auto) 1.5, Baso % (Auto) 0.5, Absolute Neuts (auto)5.7, Absolute Lymphs (auto) 1.12, Nucleated RBC % 0, Platelet Estimate A, RBC Morphology NORM C+C, Sodium 142, Potassium 4.5, Chloride 97 L, Carbon Dioxide 29.2, Anion Gap 15, BUN 36 H, Creatinine 1.56 H, Estim Creat Clear Calc 31.49 L,Est GFR (MDRD) Non-Af 37 L, BUN/Creatinine Ratio 23.2 H, Glucose 116 H, Calcium 9.3, Total Bilirubin 0.49, AST 29, ALT 12, Alkaline Phosphatase 101, Total Protein 7.9, Albumin 4.4, Globulin 3.5, Albumin/Globulin Ratio 1.3, Lipase 12 L 07/26/24 17:04: Urine Color Yellow, Urine Clarity Clear, Urine pH 5.0, Ur Specific [place] 1.015, Urine Protein 30 H, Urine Glucose (UA) Normal, Urine Ketones Negative, Urine Occult Blood Negative, Urine Nitrite Negative, Urine Bilirubin 1 H, Urine Urobilinogen Normal, Ur Leukocyte Esterase Negative, Urine RBC 0 SEEN, Urine WBC 0-5 SEEN, Ur Squamous Epith Cells 0-5 SEEN, Urine Bacteria2+, Urine Mucus 0 SEEN Imaging Radiology Impression Abdomen/Pelvis CT 07/26/24 16:40 IMPRESSION: 1. Diffuse dilation of the small bowel, with the transition point within the distal duodenum within the left upper quadrant. No pneumoperitoneum. 2. Diffuse hepatic steatosis. 3. Stable bibasilar consolidations. Reading Location: [id number] Assessment & Plan Assessment/Plan (1) Small bowel obstruction: PLAN: Symptoms began around the . CAT scan showed diffuse dilation of the small bowel with transition point within the distal duodenum. General surgery contacted by the emergency room physician and recommended NG tube. Patient was initially reluctant to have an NG tube placed but is now opento it. I discussed with Dr. Guaman, of the emergency room, and informed Dr. Guaman of the patient's now openness to have an NG tube placed. They will attempt to place it in the emergency room. Did forewarn the patient that it is typically uncomfortable having an NG tube in but its better than the alternativeof having a distended tender abdomen. I did also discuss the patient and her friend at bedside that many times of small bowel fractions to the those can resolve on her own but does occasionally require surgery to which we would have surgery on board in case that would be necessary. In meantime, we will continue with IV fluids, IV pain medications with ketorolacand morphine. IV antiemetics. Patient be n.p.o. for the time being. PLAN: Plan Chronic conditions * Heart failure: HFpEF (EF between 55% from June 2017) currently compensated. Holding off on furosemide for now. * Hypertension: Stable. Olding off on lisinopril for this time as patient is n.p.o. * History of migraines: Supportive management at this time. No active migraine. Consider IV/SQ triptans if necessary. * Depression: Holding off on SSRIs for now. VTE prophylaxis with enoxaparin CODE STATUS: Addressed with the patient. Patient wishes to be full code. Charges/Coding Visit Charges Inpatient E&M: 34170 Init Hosp L3 07/26/24 1834 <Electronically signed by Trey Joe DO> Cosigner Signature (if applicable): CC: SHMUEL RICE; Dr. Trey Joe DO~ Signed [facility] Work Phone: Reason for referral (narrative)* Diagnostic Procedure Only (Routine) - Pending Review Specialty Diagnoses / Procedures Referred By Contac t Referred To Contact BR IMAGING Diagnoses Encounter for screening mammogram for breast cancer Procedures JEAN CLAUDE SCREENING SCREENING MAMMOGRAPHY BI 2-VIEW BREAST INC CAD Velvet Palacio MD [address] [place] [address] Br Imaging [address] [place] [address] Referral ID Status Reason Start Date Expiration Date Visits Requested Visits Authorized [id number] Pending Review Auto-Generat ed Referral 10/18/2021 11/17/[address] [facility] for referral (narrative)* Diagnostic Procedure Only (Routine) - Authorized Specialty Diagnoses / Procedures Referred By Contac t Referred To Contact US IMAGING Diagnoses Diarrhea, unspecified type Right upper quadrant abdominal tenderness without rebound tenderness Nausea Procedures US ABD RT UPPER QUADRANT US ABDOMINAL REAL TIME W/IMAGE LIMITED Dali Rice APRN.PLATE FILLER [address] [place] [address] Us Imaging Referral ID Status Reason Start Date Expiration Date Visits Requested Visits Authorized [id number] Authorized Auto-Generat ed Referral 2 03/02/2023 1 1 * Consult, Test, Treat (Routine) - Pending Review Specialty Diagnoses / Procedures Referred By Contac t Referred To Contact Gastroenterology Diagnoses Diarrhea, unspecified type Procedures CONSULT TO GASTROENTEROLOGY OFFICE/OUTPATIENT [facility] MDM 60-74 MINUTES Dali Rice APRN.PLATE FILLER [address] [place] [address] Referral ID Status Reason Start Date Expiration Date Visits Requested Visits Authorized [id number] Pending Review PCP Requested Referral 2 01/31/[address] [facility] for referral (narrative)* Diagnostic Procedure Only (Routine) - Closed Specialty Diagnoses / Procedures Referred By Contac t Referred To Contact XR IMAGING Diagnoses Chronic back pain, unspecified back location, unspecified back pain laterality Kyphosis, unspecified kyphosis type, unspecified spinal region Procedures XR THORACIC GENERAL 3V AP/LAT/SWIMMERS RADEX SPINE THORACIC 3 VIEWS Dali Rice APRN.PLATE FILLER [address] [place] [address] Xr Imaging Referral ID Status Reason Start Date Expiration Date V isits Requested Visits Authorized [id number] Closed Auto-Generate d Referral 10/01/2022 10/31/2023 1 1 * Diagnostic Procedure Only (Routine) - Closed Specialty Diagnoses / Procedures Referred By Contac t Referred To Contact XR IMAGING Diagnoses Chronic back pain, unspecified back location, unspecified back pain laterality Kyphosis, unspecified kyphosis type, unspecified spinal region Procedures XR LUMBAR GENERAL 3V AP/LAT/L5-S1 RADEX SPINE LUMBOSACRAL 2/3 VIEWS Dali Rice APRN.PLATE FILLER [address] [place] [address] Xr Imaging Referral ID Status Reason Start Date Expiration Date V isits Requested Visits Authorized [id number] Closed Auto-Generate d Referral 10/01/2022 10/31/[address] [facility] for referral (narrative)* Outpatient Procedure (Routine) - Authorized Specialty Diagnoses / Procedures Referred By Contac t Referred To [facility] Diagnoses Asthma with chronic obstructive pulmonary disease (COPD) (HCC) Procedures LUNG DIFFUSION CAPACITY (DLCO) DIFFUSING CAPACITY Radha Willams MD [address] [place] [address] [address] Referral ID Status Reason Start Date Expiration Date Visits Requested Visits Authorized [id number] Authorized Auto-Generat ed Referral 07/05/2023 08/03/2024 1 1 * Outpatient Procedure (Routine) - Authorized Specialty Diagnoses / Procedures Referred By Contac t Referred To [facility] Diagnoses Asthma with chronic obstructive pulmonary disease (COPD) (HCC) Procedures LUNG VOLUMES PLETHYSMOGRAPHY LUNG VOLUMES W/WO AIRWAY RESIST Radha Willams MD [address] [place] [address] [address] Referral ID Status Reason Start Date Expiration Date Visits Requested Visits Authorized [id number] Authorized Auto-Generat ed Referral 07/05/2023 03/03/2024 1 1 * Outpatient Procedure (Routine) - Authorized Specialty Diagnoses / Procedures Referred By Contac t Referred [facility] Diagnoses Asthma with chronic obstructive pulmonary disease (COPD) ([facility]) Procedures SPIROMETRY WITH DILATOR IF OBSTRUCTED BRNCDILAT RSPSE SPMTRY PRE&POST-BRNCDILAT Radha Romero MD [address] [place] [address] [address] Referral ID Status Reason Start Date Expiration Date Visits Requested Visits Authorized [id number] Authorized Auto-Generat ed Referral 07/05/2023 08/03/[address] [facility] for referral (narrative)* Diagnostic Procedure Only (Routine) - Pending Review Specialty Diagnoses / Procedures Referred By Contac t Referred To Contact BR IMAGING Diagnoses Encounter for screening mammogram for breast cancer Procedures JEAN CLAUDE SCREENING W TITO SCREENING DIGITAL BREAST TOMOSYNTHESIS BI SCREENING MAMMOGRAPHY BI 2-VIEW BREAST INC Velvet Rose MD [address] [place] [address] Br Imaging [address] [place] [address] Referral ID Status Reason Start Date Expiration Date Visits Requested Visits Authorized [id number] Pending Review Auto-Generat ed Referral 08/28/2023 09/26/[address] [facility] for referral (narrative)* Diagnostic Procedure Only (Routine) - Closed Specialty Diagnoses / Procedures Referred By Contac t Referred To Contact XR IMAGING Diagnoses Acute midline thoracic back pain Procedures XR THORACIC GENERAL 3V AP/LAT/SWIMMERS RADEX SPINE THORACIC 3 VIEWS Ines Lopez PA-C [address] [place] [address] [place] [address] Referral ID Status Reason Start Date Expiration Date V isits Requested Visits Authorized [id number] Closed Auto-Generate d Referral 10/22/2023 11/20/[address] [facility] for referral (narrative)* Diagnostic Procedure Only (Routine) - Closed Specialty Diagnoses / Procedures Referred By Contac t Referred To Contact XR IMAGING Diagnoses Acute midline thoracic back pain Procedures XR THORACIC GENERAL 3V AP/LAT/SWIMMERS RADEX SPINE THORACIC 3 VIEWS Ines Lopez PA-C [address] [place] [address] [place] [address] Referral ID Status Reason Start Date Expiration Date V isits Requested Visits Authorized [id number] Closed Auto-Generate d Referral 10/22/2023 11/20/[address] [facility] for referral (narrative)* Diagnostic Procedure Only (Routine) - Closed Specialty Diagnoses / Procedures Referred By Contac t Referred To Contact XR IMAGING Diagnoses Pain in joint, multiple sites Procedures XR HAND GENERAL 3V PA/LAT/OBL BILATERAL RADEX HAND MINIMUM 3 VIEWS Mari Martinez APRN.PLATE FILLER [address] [place] [address] [place] [address] Referral ID Status Reason Start Date Expiration Date V isits Requested Visits Authorized [id number] Closed Auto-Generate d Referral 04/29/2023 05/28/[address] [facility] for referral (narrative)* Diagnostic Procedure Only (Routine) - Closed Specialty Diagnoses / Procedures Referred By Contac t Referred To Contact XR IMAGING Diagnoses Chronic back pain, unspecified back location, unspecified back pain laterality Kyphosis, unspecified kyphosis type, unspecified spinal region Procedures XR THORACIC GENERAL 3V AP/LAT/SWIMMERS RADEX SPINE THORACIC 3 VIEWS Dali Rice APRN.PLATE FILLER [address] [place] [address] [place] [address] Referral ID Status Reason Start Date Expiration Date V isits Requested Visits Authorized [id number] Closed Auto-Generate d Referral 10/01/2022 10/31/2023 1 1 * Diagnostic Procedure Only (Routine) - Closed Specialty Diagnoses / Procedures Referred By Contac t Referred To Contact XR IMAGING Diagnoses Chronic back pain, unspecified back location, unspecified back pain laterality Kyphosis, unspecified kyphosis type, unspecified spinal region Procedures XR LUMBAR GENERAL 3V AP/LAT/L5-S1 RADEX SPINE LUMBOSACRAL 2/3 VIEWS Dali Rice APRN.PLATE FILLER [address] [place] [address] [place] [address] Referral ID Status Reason Start Date Expiration Date V isits Requested Visits Authorized [id number] Closed Auto-Generate d Referral 10/01/2022 10/31/[address] [facility] for referral (narrative)No reason for referral information [facility] Narrative* Diagnostic Procedure Only (Routine) - Closed Specialty Diagnoses / Procedures Referred By Contac t Referred To Contact XR IMAGING Diagnoses Pain Procedures XR WRIST GENERAL 3V PA/LAT/OBL BILATERAL RADEX WRIST COMPLETE MINIMUM 3 VIEWS Sebas Molina MD [address] [place] [address] [place] [address] Referral ID Status Reason Start Date Expiration Date V isits Requested Visits Authorized [id number] Closed Auto-Generate d Referral 06/15/2023 07/14/[address] [facility] for visit Narrative* Diagnostic Procedure Only (Routine) - Closed Specialty Diagnoses / Procedures Referred By Contac t Referred To Contact XR IMAGING Diagnoses Acute midline thoracic back pain Procedures XR THORACIC GENERAL 3V AP/LAT/SWIMMERS RADEX SPINE THORACIC 3 VIEWS Ines Lopez PA-C [address] [place] [address] [place] [address] Referral ID Status Reason Start Date Expiration Date V isits Requested Visits Authorized [id number] Closed Auto-Generate d Referral 10/22/2023 11/20/[address] [facility] for visit Narrative* Diagnostic Procedure Only (Routine) - Closed Specialty Diagnoses / Procedures Referred By Contac t Referred To Contact XR IMAGING Diagnoses Chronic back pain, unspecified back location, unspecified back pain laterality Kyphosis, unspecified kyphosis type, unspecified spinal region Procedures XR THORACIC GENERAL 3V AP/LAT/SWIMMERS RADEX SPINE THORACIC 3 VIEWS Dali Rice APRN.CNP [address] [place] [id number] [place] [address] Referral ID Status Reason Start Date Expiration Date V isits Requested Visits Authorized [id number] Closed Auto-Generate d Referral 10/01/2022 10/31/2023 1 1 [facility] Summary Purpose Family History No Family History Records Found Relationship Condition Age at Onset Recorded Date/T viji Unknown Family History?Cancer Unknown July 272014 8:26am Family History?Cancer Unknown May 14, 2018 12:59pm Relationship Condition Age at Onset Recorded Date/T viji Unknown Family History?Cancer Unknown July 272014 7:26am Family History?Cancer Unknown May 14, 2018 11:59am Relationship Condition Age at Onset Recorded Date/T viji Not Specified Chronic obstructive pulmonary disease Un known Advance Directives No Advanced Directives Records FoundDocuments on File Type Date Recorded 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 [employer] Specialist Expl 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 Advance Directive(s) 12/18/2017 2:41 PM Advance Directive(s) 12/18/2017 4:42 PM Advance Directive(s) 04/10/2017 9:16 AM Advance Directive(s) 12/01/2016 2:35 PM Documents on File Type Date Recorded Patient [employer] Specialist Expl anation Advance Directive(s) 12/18/2017 4:42 PM Documents on File Type Date Recorded Patient [employer] Specialist Expl anation Advance Directive(s) 12/18/2017 4:42 PM Advance Directive Response Recorded Date/ Time Advance Directives No March 21, 2015 8:32am Living Will No November 14, 2022 11:43am Power of Labourers No November 11:43am Advance Directive Response Recorded Date/ Time Advance Directives No March 21, 2015 7:32am Living Will No May 11, 2023 11:19am Power of Labourers No May 10 11:19am Advance Directive Response Recorded Date/ Time Advance Directives No March 21, 2015 8:32am Living Will No May 11, 2023 4:02pm Power of Labourers No May 10 4:02pm Advance Directive Response Recorded Date/ Time Advance Directives No March 21, 2015 8:32am Living Will No June 04, 2023 11:27am Power of Labourers No June 03 11:27am Advance Directive Response Recorded Date/ Time Advance Directives No March 21, 2015 8:32am Living Will No June 04, 2023 5:09pm Power of Labourers No June 03 5:09pm Advance Directive Response Recorded Date/ Time Living Will No May 01 7:44pm Do you have a Healthcare Power of Labourers? No May 01, 2024 7:44pm Do you have a Healthcare Power of Labourers? No July 26, 2024 3:32pm Advance Directives No March 21, 2015 8:32am Health Concerns Infection Onset Date Last Indicated Resolved Time COVID-19 Rule-Out 01/10/2021 01/10/2021 01/11/2021 2:08 PM EST COVID-19 Confirmed 01/10/2021 01/10/2021 8:51 PM EST Reason for Referral Specialty Diagnoses / Procedures Referred By Contac t Referred To Contact Rheumatology Diagnoses Arthralgia, unspecified joint Arthritis Fibromyalgia Procedures CONSULT TO RHEUM/IMMUN DISEASE OFFICE/OUTPATIENT NEW HIGH MDM 60-74 MINUTES Dali Rice APRN.PLATE FILLER [address] [place] [address] Referral ID Status Reason Start Date Expiration Date Visits Requested Visits Authorized [id number] Authorized PCP Requested Referral 01/03/2022 01/03/2023 1 1 Specialty Diagnoses / Procedures Referred By Poppyac t Referred To Contact CT IMAGING Diagnoses Elevated lipase Elevated amylase RUQ pain Nausea Chronic diarrhea Procedures CT ABDOMEN WO IVCON CT ABDOMEN W/O CONTRAST Dali Rice APRN.PLATE FILLER [address] [place] [address] Ct Imaging Referral ID Status Reason Start Date Expiration Date Visits Requested Visits Authorized [id number] Pending Review Auto-Generat ed Referral 02/01/2022 03/03/2023 1 1 Specialty Diagnoses / Procedures Referred By Contac t Referred To Contact CT IMAGING Diagnoses Elevated lipase Elevated amylase RUQ pain Nausea Chronic diarrhea Procedures CT ABDOMEN WO IVCON CT ABDOMEN W/O CONTRAST Dali Rice APRN.PLATE FILLER [address] [place] [address] [place] [address] Referral ID Status Reason Start Date Expiration Date V isits Requested Visits Authorized [id number] Closed Auto-Generate d Referral 02/01/2022 03/03/2023 1 1 Specialty Diagnoses / Procedures Referred By Contac t Referred To Contact Diagnoses Dali Prince APRN.PLATE FILLER [address] [place] [address] Referral ID Status Reason Start Date Expiration Date Visits Re quested Visits Authorized [id number] Denied 1 1 Specialty Diagnoses / Procedures Referred By Contac t Referred To Contact Cardiology Diagnoses Acute on chronic diastolic congestive heart failure (HCC) Procedures CONSULT TO CARDIOLOGY OFFICE/OUTPATIENT [facility] 60 MINUTES FernandezFernando stone, SCRUBBER SYSTEM ATTENDANT.SECURITY ESCORT [address] [place] [address] Referral ID Status Reason Start Date Expiration Date Visits Requested Visits Authorized [id number] Authorized PCP Requested Referral 06/10/2023 06/09/2024 1 1 Specialty Diagnoses / Procedures Referred By Contac t Referred To Contact Pulmonary and Critical Care Medicine Diagnoses Community acquired pneumonia, unspecified laterality Acute on chronic respiratory failure with hypoxia (HCC) Centrilobular emphysema (HCC) Procedures CONSULT TO PULM/CRITICAL CARE OFFICE/OUTPATIENT [facility] 60 MINUTES FernandezFernando stone, SCRUBBER SYSTEM ATTENDANT.SECURITY ESCORT [address] [place] [address] Referral ID Status Reason Start Date Expiration Date Visits Requested Visits Authorized [id number] Authorized PCP Requested Referral 06/10/2023 06/09/2024 1 1 Specialty Diagnoses / Procedures Referred By Contac t Referred To Contact [facility] Diagnoses Primary osteoarthritis of first carpometacarpal joint of right hand Procedures CONSULT TO [facility]ENCH TECHNICIAN OCCUPATIONAL THERAPY EVAL HIGH COMPLEX 60 MINS Vickie Barth PA-C [address] [place] [address] [facility] [address] [place] [address] Referral ID Status Reason Start Date Expiration Date Visits Requested Visits Authorized [id number] Authorized PCP Requested Referral Auto-Generate d Referral 09/17/2023 09/16/2024 99 99 Specialty Diagnoses / Procedures Referred By Contac t Referred To Contact CT IMAGING Diagnoses Thoracic degenerative disc disease Pain syndrome, chronic Compression deformity of vertebra Abnormal x-ray Encounter for observation for other suspected diseases and conditions ruled out Procedures CT THORACIC SPINE WO IVCON CT THORACIC SPINE W/O CONTRAST MATERIAL Dali Rice SCRUBBER SYSTEM ATTENDANT.PLATE FILLER [address] [place] [address] [place] [address] Referral ID Status Reason Start Date Expiration Date Visits Requested Visits Authorized [id number] New Request Auto-Generat ed Referral 11/06/2023 12/05/2024 1 1 Specialty Diagnoses / Procedures Referred By Contlj t Referred To Contact Pain Management Diagnoses Thoracic degenerative disc disease Pain syndrome, chronic Compression deformity of vertebra Procedures CONSULT TO PAIN MGT OFFICE/OUTPATIENT NEW HIGH MDM 60 MINUTES Dali Rice APRN.PLATE FILLER [address] [place] [address] Referral ID Status Reason Start Date Expiration Date Visits Requested Visits Authorized [id number] Authorized PCP Requested Referral 11/06/2023 11/05/2024 1 1 Chief Complaint and Reason for Visit Chief Complaint MENTAL HEALTH ABD PAIN Chief Complaint COMMUNITY ACQUIRED P NEUMONIA Reason for Visit Acute hypokalemia Community acquired pneumonia Hypoxia RSV infection Chief Complaint DIARRHEA DIARRHEA DIARRHEA DIARRHEA DIARRHEA DIARRHEA DIARRHEA DIARRHEA DIARRHEA DIARRHEA DIARRHEA DIARRHEA Reason for Visit Acute hypokalemia Community acquired pneumonia Hypoxia RSV infection COPD (chronic obstructive pulmonary disease) Chief Complaint DIARRHEA DIARRHEA DIARRHEA DIARRHEA DIARRHEA DIARRHEA DIARRHEA DIARRHEA DIARRHEA DIARRHEA DIARRHEA DIARRHEA ACUTE ON CHR RESP FAILURE, PNEUMONIA ACUTE ON CHR RESP FAILURE, PNEUMONIA Reason for Visit Hypoxia Acute hypokalemia Community acquired pneumonia RSV infection Pneumonia Acute and chronic respiratory failure with hypoxia COPD (chronic obstructive pulmonary disease) HTN (hypertension) Chief Complaint DIARRHEA DIARRHEA DIARRHEA DIARRHEA DIARRHEA DIARRHEA DIARRHEA DIARRHEA DIARRHEA DIARRHEA DIARRHEA DIARRHEA ACUTE ON CHR RESP FAILURE, PNEUMONIA ACUTE ON CHR RESP FAILURE, PNEUMONIA ACUTE ON CHR RESP FAILURE, PNEUMONIA ACUTE ON CHR RESP FAILURE, PNEUMONIA Reason for Visit Hypoxia Acute hypokalemia Community acquired pneumonia RSV infection Pneumonia Acute and chronic respiratory failure with hypoxia COPD (chronic obstructive pulmonary disease) HTN (hypertension) Chief Complaint Admit Date COPD EXACERBATION May 01, 2024 4:42pm COPD EXACERBATION May 01, 2024 4:49pm COPD EXACERBATION May 02, 2024 9:18 am COPD EXACERBATION May 03, 2024 2:59 pm SBO July 26, 2024 6:23p m N/V July 26, 2024 6:27p m Reason for Visit Admit Date Migraines May 01, 2024 4:42pm Acute on chronic hypoxic respiratory son lure May 01, 2024 4:42pm CHF exacerbation May 01, 2024 4:42pm COPD exacerbation May 01, 2024 4:42pm Pneumonia May 01, 2024 4:42pm Small bowel obstruction July 26, 2024 6 :23pm Additional Source Comments INFORMATION SOURCE (unrecogn ized section and content) DATE CREATED AUTHOR 08/22/2017 [facility] DATE CREATED AUTHOR AUTHOR'S ORGANIZ ATION 08/26/2017 [facility] DATE CREATED AUTHOR AUTHOR'S ORGANIZ ATION 08/26/2017 [facility] DATE CREATED AUTHOR AUTHOR'S ORGANIZ ATION 08/28/2017 [facility] DATE CREATED AUTHOR AUTHOR'S ORGANIZ ATION 08/28/2017 [facility] DATE CREATED AUTHOR AUTHOR'S ORGANIZ ATION 05/21/2023 [facility] ([place]) DATE CREATED AUTHOR AUTHOR'S ORGANIZ ATION 03/19/2024 [facility] DATE CREATED AUTHOR AUTHOR'S ORGANIZ ATION 07/31/2024 [facility] DATE CREATED AUTHOR AUTHOR'S ORGANIZ ATION 08/05/[address] [facility] Source Comments (unrecognize d section and content) In the event this informatio n is protected by the Federal Confidentiality of Alcohol and Drug Abuse Patient Records regulations: The Federal rules restrict any use of the information to criminally investigate or prosecute any alcohol or drug abuse patient.[facility] the event this information is protected by the Federal Confidentiality of Alcohol and Drug Abuse Patient Records regulations: The Federal rules restrict any use of the information to criminally investigate or prosecute any alcohol or drug abuse patient.[facility] HospitalIn the event this information is protected by the Federal Confidentiality of Alcohol and Drug Abuse Patient Records regulations: The Federal rules restrict any use of the information to criminally investigate or prosecute any alcohol or drug abuse patient.[facility] HospitalIn the event this information is protected by the Federal Confidentiality of Alcohol and Drug Abuse Patient Records regulations: The Federal rules restrict any use of the information to criminally investigate or prosecute any alcohol or drug abuse patient.[facility] HospitalIn the event this information is protected by the Federal Confidentiality of Alcohol and Drug Abuse Patient Records regulations: The Federal rules restrict any use of the information to criminally investigate or prosecute any alcohol or drug abuse patient.[facility] HospitalIn the event this information is protected by the Federal Confidentiality of Alcohol and Drug Abuse Patient Records regulations: The Federal rules restrict any use of the information to criminally investigate or prosecute any alcohol or drug abuse patient.[facility] HospitalIn the event this information is protected by the Federal Confidentiality of Alcohol and Drug Abuse Patient Records regulations: The Federal rules restrict any use of the information to criminally investigate or prosecute any alcohol or drug abuse patient.[facility] HospitalIn the event this information is protected by the Federal Confidentiality of Alcohol and Drug Abuse Patient Records regulations: The Federal rules restrict any use of the information to criminally investigate or prosecute any alcohol or drug abuse patient.[facility] HospitalIn the event this information is protected by the Federal Confidentiality of Alcohol and Drug Abuse Patient Records regulations: The Federal rules restrict any use of the information to criminally investigate or prosecute any alcohol or drug abuse patient.[facility] HospitalIn the event this information is protected by the Federal Confidentiality of Alcohol and Drug Abuse Patient Records regulations: The Federal rules restrict any use of the information to criminally investigate or prosecute any alcohol or drug abuse patient.[facility] HospitalIn the event this information is protected by the Federal Confidentiality of Alcohol and Drug Abuse Patient Records regulations: The Federal rules restrict any use of the information to criminally investigate or prosecute any alcohol or drug abuse patient.[facility] HospitalIn the event this information is protected by the Federal Confidentiality of Alcohol and Drug Abuse Patient Records regulations: The Federal rules restrict any use of the information to criminally investigate or prosecute any alcohol or drug abuse patient.[facility] HospitalIn the event this information is protected by the Federal Confidentiality of Alcohol and Drug Abuse Patient Records regulations: The Federal rules restrict any use of the information to criminally investigate or prosecute any alcohol or drug abuse patient.[facility] HospitalIn the event this information is protected by the Federal Confidentiality of Alcohol and Drug Abuse Patient Records regulations: The Federal rules restrict any use of the information to criminally investigate or prosecute any alcohol or drug abuse patient.[facility] HospitalIn the event this information is protected by the Federal Confidentiality of Alcohol and Drug Abuse Patient Records regulations: The Federal rules restrict any use of the information to criminally investigate or prosecute any alcohol or drug abuse patient.[facility] HospitalIn the event this information is protected by the Federal Confidentiality of Alcohol and Drug Abuse Patient Records regulations: The Federal rules restrict any use of the information to criminally investigate or prosecute any alcohol or drug abuse patient.[facility] HospitalIn the event this information is protected by the Federal Confidentiality of Alcohol and Drug Abuse Patient Records regulations: The Federal rules restrict any use of the information to criminally investigate or prosecute any alcohol or drug abuse patient.[facility] HospitalIn the event this information is protected by the Federal Confidentiality of Alcohol and Drug Abuse Patient Records regulations: The Federal rules restrict any use of the information to criminally investigate or prosecute any alcohol or drug abuse patient.[facility] HospitalIn the event this information is protected by the Federal Confidentiality of Alcohol and Drug Abuse Patient Records regulations: The Federal rules restrict any use of the information to criminally investigate or prosecute any alcohol or drug abuse patient.[facility] HospitalIn the event this information is protected by the Federal Confidentiality of Alcohol and Drug Abuse Patient Records regulations: The Federal rules restrict any use of the information to criminally investigate or prosecute any alcohol or drug abuse patient.[facility] HospitalIn the event this information is protected by the Federal Confidentiality of Alcohol and Drug Abuse Patient Records regulations: The Federal rules restrict any use of the information to criminally investigate or prosecute any alcohol or drug abuse patient.[facility] HospitalIn the event this information is protected by the Federal Confidentiality of Alcohol and Drug Abuse Patient Records regulations: The Federal rules restrict any use of the information to criminally investigate or prosecute any alcohol or drug abuse patient.[facility] HospitalIn the event this information is protected by the Federal Confidentiality of Alcohol and Drug Abuse Patient Records regulations: The Federal rules restrict any use of the information to criminally investigate or prosecute any alcohol or drug abuse patient.[facility] HospitalIn the event this information is protected by the Federal Confidentiality of Alcohol and Drug Abuse Patient Records regulations: The Federal rules restrict any use of the information to criminally investigate or prosecute any alcohol or drug abuse patient.[facility] HospitalIn the event this information is protected by the Federal Confidentiality of Alcohol and Drug Abuse Patient Records regulations: The Federal rules restrict any use of the information to criminally investigate or prosecute any alcohol or drug abuse patient.[facility] HospitalIn the event this information is protected by the Federal Confidentiality of Alcohol and Drug Abuse Patient Records regulations: The Federal rules restrict any use of the information to criminally investigate or prosecute any alcohol or drug abuse patient.[facility] HospitalIn the event this information is protected by the Federal Confidentiality of Alcohol and Drug Abuse Patient Records regulations: The Federal rules restrict any use of the information to criminally investigate or prosecute any alcohol or drug abuse patient.[facility] HospitalIn the event this information is protected by the Federal Confidentiality of Alcohol and Drug Abuse Patient Records regulations: The Federal rules restrict any use of the information to criminally investigate or prosecute any alcohol or drug abuse patient.[facility] HospitalIn the event this information is protected by the Federal Confidentiality of Alcohol and Drug Abuse Patient Records regulations: The Federal rules restrict any use of the information to criminally investigate or prosecute any alcohol or drug abuse patient.[facility] HospitalIn the event this information is protected by the Federal Confidentiality of Alcohol and Drug Abuse Patient Records regulations: The Federal rules restrict any use of the information to criminally investigate or prosecute any alcohol or drug abuse patient.[facility] HospitalIn the event this information is protected by the Federal Confidentiality of Alcohol and Drug Abuse Patient Records regulations: The Federal rules restrict any use of the information to criminally investigate or prosecute any alcohol or drug abuse patient.[facility] HospitalIn the event this information is protected by the Federal Confidentiality of Alcohol and Drug Abuse Patient Records regulations: The Federal rules restrict any use of the information to criminally investigate or prosecute any alcohol or drug abuse patient.[facility] HospitalIn the event this information is protected by the Federal Confidentiality of Alcohol and Drug Abuse Patient Records regulations: The Federal rules restrict any use of the information to criminally investigate or prosecute any alcohol or drug abuse patient.[facility] HospitalIn the event this information is protected by the Federal Confidentiality of Alcohol and Drug Abuse Patient Records regulations: The Federal rules restrict any use of the information to criminally investigate or prosecute any alcohol or drug abuse patient.[facility] HospitalIn the event this information is protected by the Federal Confidentiality of Alcohol and Drug Abuse Patient Records regulations: The Federal rules restrict any use of the information to criminally investigate or prosecute any alcohol or drug abuse patient.[facility] HospitalIn the event this information is protected by the Federal Confidentiality of Alcohol and Drug Abuse Patient Records regulations: The Federal rules restrict any use of the information to criminally investigate or prosecute any alcohol or drug abuse patient.[facility] HospitalIn the event this information is protected by the Federal Confidentiality of Alcohol and Drug Abuse Patient Records regulations: The Federal rules restrict any use of the information to criminally investigate or prosecute any alcohol or drug abuse patient.[facility] HospitalIn the event this information is protected by the Federal Confidentiality of Alcohol and Drug Abuse Patient Records regulations: The Federal rules restrict any use of the information to criminally investigate or prosecute any alcohol or drug abuse patient.[facility] HospitalIn the event this information is protected by the Federal Confidentiality of Alcohol and Drug Abuse Patient Records regulations: The Federal rules restrict any use of the information to criminally investigate or prosecute any alcohol or drug abuse patient.[facility] HospitalIn the event this information is protected by the Federal Confidentiality of Alcohol and Drug Abuse Patient Records regulations: The Federal rules restrict any use of the information to criminally investigate or prosecute any alcohol or drug abuse patient.[facility] HospitalIn the event this information is protected by the Federal Confidentiality of Alcohol and Drug Abuse Patient Records regulations: The Federal rules restrict any use of the information to criminally investigate or prosecute any alcohol or drug abuse patient.[facility] HospitalIn the event this information is protected by the Federal Confidentiality of Alcohol and Drug Abuse Patient Records regulations: The Federal rules restrict any use of the information to criminally investigate or prosecute any alcohol or drug abuse patient.[facility] HospitalIn the event this information is protected by the Federal Confidentiality of Alcohol and Drug Abuse Patient Records regulations: The Federal rules restrict any use of the information to criminally investigate or prosecute any alcohol or drug abuse patient.[facility] HospitalIn the event this information is protected by the Federal Confidentiality of Alcohol and Drug Abuse Patient Records regulations: The Federal rules restrict any use of the information to criminally investigate or prosecute any alcohol or drug abuse patient.[facility] HospitalIn the event this information is protected by the Federal Confidentiality of Alcohol and Drug Abuse Patient Records regulations: The Federal rules restrict any use of the information to criminally investigate or prosecute any alcohol or drug abuse patient.[facility] HospitalIn the event this information is protected by the Federal Confidentiality of Alcohol and Drug Abuse Patient Records regulations: The Federal rules restrict any use of the information to criminally investigate or prosecute any alcohol or drug abuse patient.[facility] HospitalIn the event this information is protected by the Federal Confidentiality of Alcohol and Drug Abuse Patient Records regulations: The Federal rules restrict any use of the information to criminally investigate or prosecute any alcohol or drug abuse patient.[facility] HospitalIn the event this information is protected by the Federal Confidentiality of Alcohol and Drug Abuse Patient Records regulations: The Federal rules restrict any use of the information to criminally investigate or prosecute any alcohol or drug abuse patient.[facility] HospitalIn the event this information is protected by the Federal Confidentiality of Alcohol and Drug Abuse Patient Records regulations: The Federal rules restrict any use of the information to criminally investigate or prosecute any alcohol or drug abuse patient.[facility] HospitalIn the event this information is protected by the Federal Confidentiality of Alcohol and Drug Abuse Patient Records regulations: The Federal rules restrict any use of the information to criminally investigate or prosecute any alcohol or drug abuse patient.[facility] HospitalIn the event this information is protected by the Federal Confidentiality of Alcohol and Drug Abuse Patient Records regulations: The Federal rules restrict any use of the information to criminally investigate or prosecute any alcohol or drug abuse patient.[facility] HospitalIn the event this information is protected by the Federal Confidentiality of Alcohol and Drug Abuse Patient Records regulations: The Federal rules restrict any use of the information to criminally investigate or prosecute any alcohol or drug abuse patient.[facility] HospitalIn the event this information is protected by the Federal Confidentiality of Alcohol and Drug Abuse Patient Records regulations: The Federal rules restrict any use of the information to criminally investigate or prosecute any alcohol or drug abuse patient.[facility] HospitalIn the event this information is protected by the Federal Confidentiality of Alcohol and Drug Abuse Patient Records regulations: The Federal rules restrict any use of the information to criminally investigate or prosecute any alcohol or drug abuse patient.[facility] HospitalIn the event this information is protected by the Federal Confidentiality of Alcohol and Drug Abuse Patient Records regulations: The Federal rules restrict any use of the information to criminally investigate or prosecute any alcohol or drug abuse patient.[facility] HospitalIn the event this information is protected by the Federal Confidentiality of Alcohol and Drug Abuse Patient Records regulations: The Federal rules restrict any use of the information to criminally investigate or prosecute any alcohol or drug abuse patient.[facility] HospitalIn the event this information is protected by the Federal Confidentiality of Alcohol and Drug Abuse Patient Records regulations: The Federal rules restrict any use of the information to criminally investigate or prosecute any alcohol or drug abuse patient.[facility] HospitalIn the event this information is protected by the Federal Confidentiality of Alcohol and Drug Abuse Patient Records regulations: The Federal rules restrict any use of the information to criminally investigate or prosecute any alcohol or drug abuse patient.[facility] HospitalIn the event this information is protected by the Federal Confidentiality of Alcohol and Drug Abuse Patient Records regulations: The Federal rules restrict any use of the information to criminally investigate or prosecute any alcohol or drug abuse patient.[facility] HospitalIn the event this information is protected by the Federal Confidentiality of Alcohol and Drug Abuse Patient Records regulations: The Federal rules restrict any use of the information to criminally investigate or prosecute any alcohol or drug abuse patient.[facility] HospitalIn the event this information is protected by the Federal Confidentiality of Alcohol and Drug Abuse Patient Records regulations: The Federal rules restrict any use of the information to criminally investigate or prosecute any alcohol or drug abuse patient.[facility] HospitalIn the event this information is protected by the Federal Confidentiality of Alcohol and Drug Abuse Patient Records regulations: The Federal rules restrict any use of the information to criminally investigate or prosecute any alcohol or drug abuse patient.[facility] HospitalIn the event this information is protected by the Federal Confidentiality of Alcohol and Drug Abuse Patient Records regulations: The Federal rules restrict any use of the information to criminally investigate or prosecute any alcohol or drug abuse patient.[facility] HospitalIn the event this information is protected by the Federal Confidentiality of Alcohol and Drug Abuse Patient Records regulations: The Federal rules restrict any use of the information to criminally investigate or prosecute any alcohol or drug abuse patient.[facility] HospitalIn the event this information is protected by the Federal Confidentiality of Alcohol and Drug Abuse Patient Records regulations: The Federal rules restrict any use of the information to criminally investigate or prosecute any alcohol or drug abuse patient.[facility] HospitalIn the event this information is protected by the Federal Confidentiality of Alcohol and Drug Abuse Patient Records regulations: The Federal rules restrict any use of the information to criminally investigate or prosecute any alcohol or drug abuse patient.[facility] HospitalIn the event this information is protected by the Federal Confidentiality of Alcohol and Drug Abuse Patient Records regulations: The Federal rules restrict any use of the information to criminally investigate or prosecute any alcohol or drug abuse patient.[facility] HospitalIn the event this information is protected by the Federal Confidentiality of Alcohol and Drug Abuse Patient Records regulations: The Federal rules restrict any use of the information to criminally investigate or prosecute any alcohol or drug abuse patient.[facility] HospitalIn the event this information is protected by the Federal Confidentiality of Alcohol and Drug Abuse Patient Records regulations: The Federal rules restrict any use of the information to criminally investigate or prosecute any alcohol or drug abuse patient.[facility] HospitalIn the event this information is protected by the Federal Confidentiality of Alcohol and Drug Abuse Patient Records regulations: The Federal rules restrict any use of the information to criminally investigate or prosecute any alcohol or drug abuse patient.[facility] HospitalIn the event this information is protected by the Federal Confidentiality of Alcohol and Drug Abuse Patient Records regulations: The Federal rules restrict any use of the information to criminally investigate or prosecute any alcohol or drug abuse patient.[facility] HospitalIn the event this information is protected by the Federal Confidentiality of Alcohol and Drug Abuse Patient Records regulations: The Federal rules restrict any use of the information to criminally investigate or prosecute any alcohol or drug abuse patient.[facility] HospitalIn the event this information is protected by the Federal Confidentiality of Alcohol and Drug Abuse Patient Records regulations: The Federal rules restrict any use of the information to criminally investigate or prosecute any alcohol or drug abuse patient.[facility] HospitalIn the event this information is protected by the Federal Confidentiality of Alcohol and Drug Abuse Patient Records regulations: The Federal rules restrict any use of the information to criminally investigate or prosecute any alcohol or drug abuse patient.[facility] HospitalIn the event this information is protected by the Federal Confidentiality of Alcohol and Drug Abuse Patient Records regulations: The Federal rules restrict any use of the information to criminally investigate or prosecute any alcohol or drug abuse patient.[facility] HospitalIn the event this information is protected by the Federal Confidentiality of Alcohol and Drug Abuse Patient Records regulations: The Federal rules restrict any use of the information to criminally investigate or prosecute any alcohol or drug abuse patient.[facility] HospitalIn the event this information is protected by the Federal Confidentiality of Alcohol and Drug Abuse Patient Records regulations: The Federal rules restrict any use of the information to criminally investigate or prosecute any alcohol or drug abuse patient.[facility] HospitalIn the event this information is protected by the Federal Confidentiality of Alcohol and Drug Abuse Patient Records regulations: The Federal rules restrict any use of the information to criminally investigate or prosecute any alcohol or drug abuse patient.[facility] HospitalIn the event this information is protected by the Federal Confidentiality of Alcohol and Drug Abuse Patient Records regulations: The Federal rules restrict any use of the information to criminally investigate or prosecute any alcohol or drug abuse patient.[facility] HospitalIn the event this information is protected by the Federal Confidentiality of Alcohol and Drug Abuse Patient Records regulations: The Federal rules restrict any use of the information to criminally investigate or prosecute any alcohol or drug abuse patient.[facility] HospitalIn the event this information is protected by the Federal Confidentiality of Alcohol and Drug Abuse Patient Records regulations: The Federal rules restrict any use of the information to criminally investigate or prosecute any alcohol or drug abuse patient.[facility] HospitalIn the event this information is protected by the Federal Confidentiality of Alcohol and Drug Abuse Patient Records regulations: The Federal rules restrict any use of the information to criminally investigate or prosecute any alcohol or drug abuse patient.[facility] HospitalIn the event this information is protected by the Federal Confidentiality of Alcohol and Drug Abuse Patient Records regulations: The Federal rules restrict any use of the information to criminally investigate or prosecute any alcohol or drug abuse patient.[facility] HospitalIn the event this information is protected by the Federal Confidentiality of Alcohol and Drug Abuse Patient Records regulations: The Federal rules restrict any use of the information to criminally investigate or prosecute any alcohol or drug abuse patient.[facility] HospitalIn the event this information is protected by the Federal Confidentiality of Alcohol and Drug Abuse Patient Records regulations: The Federal rules restrict any use of the information to criminally investigate or prosecute any alcohol or drug abuse patient.[facility] HospitalIn the event this information is protected by the Federal Confidentiality of Alcohol and Drug Abuse Patient Records regulations: The Federal rules restrict any use of the information to criminally investigate or prosecute any alcohol or drug abuse patient.[facility] HospitalIn the event this information is protected by the Federal Confidentiality of Alcohol and Drug Abuse Patient Records regulations: The Federal rules restrict any use of the information to criminally investigate or prosecute any alcohol or drug abuse patient.[facility] HospitalIn the event this information is protected by the Federal Confidentiality of Alcohol and Drug Abuse Patient Records regulations: The Federal rules restrict any use of the information to criminally investigate or prosecute any alcohol or drug abuse patient.[facility] HospitalIn the event this information is protected by the Federal Confidentiality of Alcohol and Drug Abuse Patient Records regulations: The Federal rules restrict any use of the information to criminally investigate or prosecute any alcohol or drug abuse patient.[facility] HospitalIn the event this information is protected by the Federal Confidentiality of Alcohol and Drug Abuse Patient Records regulations: The Federal rules restrict any use of the information to criminally investigate or prosecute any alcohol or drug abuse patient.[facility] HospitalIn the event this information is protected by the Federal Confidentiality of Alcohol and Drug Abuse Patient Records regulations: The Federal rules restrict any use of the information to criminally investigate or prosecute any alcohol or drug abuse patient.[facility] HospitalIn the event this information is protected by the Federal Confidentiality of Alcohol and Drug Abuse Patient Records regulations: The Federal rules restrict any use of the information to criminally investigate or prosecute any alcohol or drug abuse patient.[facility] HospitalIn the event this information is protected by the Federal Confidentiality of Alcohol and Drug Abuse Patient Records regulations: The Federal rules restrict any use of the information to criminally investigate or prosecute any alcohol or drug abuse patient.[facility] HospitalIn the event this information is protected by the Federal Confidentiality of Alcohol and Drug Abuse Patient Records regulations: The Federal rules restrict any use of the information to criminally investigate or prosecute any alcohol or drug abuse patient.[facility] HospitalIn the event this information is protected by the Federal Confidentiality of Alcohol and Drug Abuse Patient Records regulations: The Federal rules restrict any use of the information to criminally investigate or prosecute any alcohol or drug abuse patient.[facility] HospitalIn the event this information is protected by the Federal Confidentiality of Alcohol and Drug Abuse Patient Records regulations: The Federal rules restrict any use of the information to criminally investigate or prosecute any alcohol or drug abuse patient.[facility] HospitalIn the event this information is protected by the Federal Confidentiality of Alcohol and Drug Abuse Patient Records regulations: The Federal rules restrict any use of the information to criminally investigate or prosecute any alcohol or drug abuse patient.[facility] HospitalIn the event this information is protected by the Federal Confidentiality of Alcohol and Drug Abuse Patient Records regulations: The Federal rules restrict any use of the information to criminally investigate or prosecute any alcohol or drug abuse patient.[facility] HospitalIn the event this information is protected by the Federal Confidentiality of Alcohol and Drug Abuse Patient Records regulations: The Federal rules restrict any use of the information to criminally investigate or prosecute any alcohol or drug abuse patient.[facility] HospitalIn the event this information is protected by the Federal Confidentiality of Alcohol and Drug Abuse Patient Records regulations: The Federal rules restrict any use of the information to criminally investigate or prosecute any alcohol or drug abuse patient.[facility] HospitalIn the event this information is protected by the Federal Confidentiality of Alcohol and Drug Abuse Patient Records regulations: The Federal rules restrict any use of the information to criminally investigate or prosecute any alcohol or drug abuse patient.[facility] HospitalIn the event this information is protected by the Federal Confidentiality of Alcohol and Drug Abuse Patient Records regulations: The Federal rules restrict any use of the information to criminally investigate or prosecute any alcohol or drug abuse patient.[facility] HospitalIn the event this information is protected by the Federal Confidentiality of Alcohol and Drug Abuse Patient Records regulations: The Federal rules restrict any use of the information to criminally investigate or prosecute any alcohol or drug abuse patient.[facility] HospitalIn the event this information is protected by the Federal Confidentiality of Alcohol and Drug Abuse Patient Records regulations: The Federal rules restrict any use of the information to criminally investigate or prosecute any alcohol or drug abuse patient.[facility] HospitalIn the event this information is protected by the Federal Confidentiality of Alcohol and Drug Abuse Patient Records regulations: The Federal rules restrict any use of the information to criminally investigate or prosecute any alcohol or drug abuse patient.[facility] HospitalIn the event this information is protected by the Federal Confidentiality of Alcohol and Drug Abuse Patient Records regulations: The Federal rules restrict any use of the information to criminally investigate or prosecute any alcohol or drug abuse patient.[facility] HospitalIn the event this information is protected by the Federal Confidentiality of Alcohol and Drug Abuse Patient Records regulations: The Federal rules restrict any use of the information to criminally investigate or prosecute any alcohol or drug abuse patient.[facility] HospitalIn the event this information is protected by the Federal Confidentiality of Alcohol and Drug Abuse Patient Records regulations: The Federal rules restrict any use of the information to criminally investigate or prosecute any alcohol or drug abuse patient.[facility] HospitalIn the event this information is protected by the Federal Confidentiality of Alcohol and Drug Abuse Patient Records regulations: The Federal rules restrict any use of the information to criminally investigate or prosecute any alcohol or drug abuse patient.[facility] HospitalIn the event this information is protected by the Federal Confidentiality of Alcohol and Drug Abuse Patient Records regulations: The Federal rules restrict any use of the information to criminally investigate or prosecute any alcohol or drug abuse patient.[facility] HospitalIn the event this information is protected by the Federal Confidentiality of Alcohol and Drug Abuse Patient Records regulations: The Federal rules restrict any use of the information to criminally investigate or prosecute any alcohol or drug abuse patient.[facility] HospitalIn the event this information is protected by the Federal Confidentiality of Alcohol and Drug Abuse Patient Records regulations: The Federal rules restrict any use of the information to criminally investigate or prosecute any alcohol or drug abuse patient.[facility] HospitalIn the event this information is protected by the Federal Confidentiality of Alcohol and Drug Abuse Patient Records regulations: The Federal rules restrict any use of the information to criminally investigate or prosecute any alcohol or drug abuse patient.[facility] HospitalIn the event this information is protected by the Federal Confidentiality of Alcohol and Drug Abuse Patient Records regulations: The Federal rules restrict any use of the information to criminally investigate or prosecute any alcohol or drug abuse patient.[facility] HospitalIn the event this information is protected by the Federal Confidentiality of Alcohol and Drug Abuse Patient Records regulations: The Federal rules restrict any use of the information to criminally investigate or prosecute any alcohol or drug abuse patient.[facility] HospitalIn the event this information is protected by the Federal Confidentiality of Alcohol and Drug Abuse Patient Records regulations: The Federal rules restrict any use of the information to criminally investigate or prosecute any alcohol or drug abuse patient.[facility] HospitalIn the event this information is protected by the Federal Confidentiality of Alcohol and Drug Abuse Patient Records regulations: The Federal rules restrict any use of the information to criminally investigate or prosecute any alcohol or drug abuse patient.[facility] HospitalIn the event this information is protected by the Federal Confidentiality of Alcohol and Drug Abuse Patient Records regulations: The Federal rules restrict any use of the information to criminally investigate or prosecute any alcohol or drug abuse patient.[facility] HospitalIn the event this information is protected by the Federal Confidentiality of Alcohol and Drug Abuse Patient Records regulations: The Federal rules restrict any use of the information to criminally investigate or prosecute any alcohol or drug abuse patient.[facility] HospitalIn the event this information is protected by the Federal Confidentiality of Alcohol and Drug Abuse Patient Records regulations: The Federal rules restrict any use of the information to criminally investigate or prosecute any alcohol or drug abuse patient.[facility] HospitalIn the event this information is protected by the Federal Confidentiality of Alcohol and Drug Abuse Patient Records regulations: The Federal rules restrict any use of the information to criminally investigate or prosecute any alcohol or drug abuse patient.[facility] HospitalIn the event this information is protected by the Federal Confidentiality of Alcohol and Drug Abuse Patient Records regulations: The Federal rules restrict any use of the information to criminally investigate or prosecute any alcohol or drug abuse patient.[facility] HospitalIn the event this information is protected by the Federal Confidentiality of Alcohol and Drug Abuse Patient Records regulations: The Federal rules restrict any use of the information to criminally investigate or prosecute any alcohol or drug abuse patient.[facility] HospitalIn the event this information is protected by the Federal Confidentiality of Alcohol and Drug Abuse Patient Records regulations: The Federal rules restrict any use of the information to criminally investigate or prosecute any alcohol or drug abuse patient.[facility] HospitalIn the event this information is protected by the Federal Confidentiality of Alcohol and Drug Abuse Patient Records regulations: The Federal rules restrict any use of the information to criminally investigate or prosecute any alcohol or drug abuse patient.[facility] HospitalIn the event this information is protected by the Federal Confidentiality of Alcohol and Drug Abuse Patient Records regulations: The Federal rules restrict any use of the information to criminally investigate or prosecute any alcohol or drug abuse patient.[facility] HospitalIn the event this information is protected by the Federal Confidentiality of Alcohol and Drug Abuse Patient Records regulations: The Federal rules restrict any use of the information to criminally investigate or prosecute any alcohol or drug abuse patient.[facility] HospitalIn the event this information is protected by the Federal Confidentiality of Alcohol and Drug Abuse Patient Records regulations: The Federal rules restrict any use of the information to criminally investigate or prosecute any alcohol or drug abuse patient.[facility] HospitalIn the event this information is protected by the Federal Confidentiality of Alcohol and Drug Abuse Patient Records regulations: The Federal rules restrict any use of the information to criminally investigate or prosecute any alcohol or drug abuse patient.[facility] HospitalIn the event this information is protected by the Federal Confidentiality of Alcohol and Drug Abuse Patient Records regulations: The Federal rules restrict any use of the information to criminally investigate or prosecute any alcohol or drug abuse patient.[facility] HospitalIn the event this information is protected by the Federal Confidentiality of Alcohol and Drug Abuse Patient Records regulations: The Federal rules restrict any use of the information to criminally investigate or prosecute any alcohol or drug abuse patient.[facility] HospitalIn the event this information is protected by the Federal Confidentiality of Alcohol and Drug Abuse Patient Records regulations: The Federal rules restrict any use of the information to criminally investigate or prosecute any alcohol or drug abuse patient.[facility] HospitalIn the event this information is protected by the Federal Confidentiality of Alcohol and Drug Abuse Patient Records regulations: The Federal rules restrict any use of the information to criminally investigate or prosecute any alcohol or drug abuse patient.[facility] HospitalIn the event this information is protected by the Federal Confidentiality of Alcohol and Drug Abuse Patient Records regulations: The Federal rules restrict any use of the information to criminally investigate or prosecute any alcohol or drug abuse patient.[facility] HospitalIn the event this information is protected by the Federal Confidentiality of Alcohol and Drug Abuse Patient Records regulations: The Federal rules restrict any use of the information to criminally investigate or prosecute any alcohol or drug abuse patient.[facility] HospitalIn the event this information is protected by the Federal Confidentiality of Alcohol and Drug Abuse Patient Records regulations: The Federal rules restrict any use of the information to criminally investigate or prosecute any alcohol or drug abuse patient.[facility] HospitalIn the event this information is protected by the Federal Confidentiality of Alcohol and Drug Abuse Patient Records regulations: The Federal rules restrict any use of the information to criminally investigate or prosecute any alcohol or drug abuse patient.[facility] HospitalIn the event this information is protected by the Federal Confidentiality of Alcohol and Drug Abuse Patient Records regulations: The Federal rules restrict any use of the information to criminally investigate or prosecute any alcohol or drug abuse patient.[facility] HospitalIn the event this information is protected by the Federal Confidentiality of Alcohol and Drug Abuse Patient Records regulations: The Federal rules restrict any use of the information to criminally investigate or prosecute any alcohol or drug abuse patient.[facility] HospitalIn the event this information is protected by the Federal Confidentiality of Alcohol and Drug Abuse Patient Records regulations: The Federal rules restrict any use of the information to criminally investigate or prosecute any alcohol or drug abuse patient.[facility] HospitalIn the event this information is protected by the Federal Confidentiality of Alcohol and Drug Abuse Patient Records regulations: The Federal rules restrict any use of the information to criminally investigate or prosecute any alcohol or drug abuse patient.[facility] HospitalIn the event this information is protected by the Federal Confidentiality of Alcohol and Drug Abuse Patient Records regulations: The Federal rules restrict any use of the information to criminally investigate or prosecute any alcohol or drug abuse patient.[facility] HospitalIn the event this information is protected by the Federal Confidentiality of Alcohol and Drug Abuse Patient Records regulations: The Federal rules restrict any use of the information to criminally investigate or prosecute any alcohol or drug abuse patient.[facility] HospitalIn the event this information is protected by the Federal Confidentiality of Alcohol and Drug Abuse Patient Records regulations: The Federal rules restrict any use of the information to criminally investigate or prosecute any alcohol or drug abuse patient.[facility] HospitalIn the event this information is protected by the Federal Confidentiality of Alcohol and Drug Abuse Patient Records regulations: The Federal rules restrict any use of the information to criminally investigate or prosecute any alcohol or drug abuse patient.[facility] HospitalIn the event this information is protected by the Federal Confidentiality of Alcohol and Drug Abuse Patient Records regulations: The Federal rules restrict any use of the information to criminally investigate or prosecute any alcohol or drug abuse patient.[facility] HospitalIn the event this information is protected by the Federal Confidentiality of Alcohol and Drug Abuse Patient Records regulations: The Federal rules restrict any use of the information to criminally investigate or prosecute any alcohol or drug abuse patient.[facility] HospitalIn the event this information is protected by the Federal Confidentiality of Alcohol and Drug Abuse Patient Records regulations: The Federal rules restrict any use of the information to criminally investigate or prosecute any alcohol or drug abuse patient.[facility] HospitalIn the event this information is protected by the Federal Confidentiality of Alcohol and Drug Abuse Patient Records regulations: The Federal rules restrict any use of the information to criminally investigate or prosecute any alcohol or drug abuse patient.[facility] HospitalIn the event this information is protected by the Federal Confidentiality of Alcohol and Drug Abuse Patient Records regulations: The Federal rules restrict any use of the information to criminally investigate or prosecute any alcohol or drug abuse patient.[facility] HospitalIn the event this information is protected by the Federal Confidentiality of Alcohol and Drug Abuse Patient Records regulations: The Federal rules restrict any use of the information to criminally investigate or prosecute any alcohol or drug abuse patient.[facility] HospitalIn the event this information is protected by the Federal Confidentiality of Alcohol and Drug Abuse Patient Records regulations: The Federal rules restrict any use of the information to criminally investigate or prosecute any alcohol or drug abuse patient.[facility] HospitalIn the event this information is protected by the Federal Confidentiality of Alcohol and Drug Abuse Patient Records regulations: The Federal rules restrict any use of the information to criminally investigate or prosecute any alcohol or drug abuse patient.[facility] HospitalIn the event this information is protected by the Federal Confidentiality of Alcohol and Drug Abuse Patient Records regulations: The Federal rules restrict any use of the information to criminally investigate or prosecute any alcohol or drug abuse patient.[facility] HospitalIn the event this information is protected by the Federal Confidentiality of Alcohol and Drug Abuse Patient Records regulations: The Federal rules restrict any use of the information to criminally investigate or prosecute any alcohol or drug abuse patient.[facility] HospitalIn the event this information is protected by the Federal Confidentiality of Alcohol and Drug Abuse Patient Records regulations: The Federal rules restrict any use of the information to criminally investigate or prosecute any alcohol or drug abuse patient.[facility] HospitalIn the event this information is protected by the Federal Confidentiality of Alcohol and Drug Abuse Patient Records regulations: The Federal rules restrict any use of the information to criminally investigate or prosecute any alcohol or drug abuse patient.[facility] HospitalIn the event this information is protected by the Federal Confidentiality of Alcohol and Drug Abuse Patient Records regulations: The Federal rules restrict any use of the information to criminally investigate or prosecute any alcohol or drug abuse patient.[facility] HospitalIn the event this information is protected by the Federal Confidentiality of Alcohol and Drug Abuse Patient Records regulations: The Federal rules restrict any use of the information to criminally investigate or prosecute any alcohol or drug abuse patient.[facility] HospitalIn the event this information is protected by the Federal Confidentiality of Alcohol and Drug Abuse Patient Records regulations: The Federal rules restrict any use of the information to criminally investigate or prosecute any alcohol or drug abuse patient.[facility] HospitalIn the event this information is protected by the Federal Confidentiality of Alcohol and Drug Abuse Patient Records regulations: The Federal rules restrict any use of the information to criminally investigate or prosecute any alcohol or drug abuse patient.[facility] HospitalIn the event this information is protected by the Federal Confidentiality of Alcohol and Drug Abuse Patient Records regulations: The Federal rules restrict any use of the information to criminally investigate or prosecute any alcohol or drug abuse patient.[facility] HospitalIn the event this information is protected by the Federal Confidentiality of Alcohol and Drug Abuse Patient Records regulations: The Federal rules restrict any use of the information to criminally investigate or prosecute any alcohol or drug abuse patient.[facility] HospitalIn the event this information is protected by the Federal Confidentiality of Alcohol and Drug Abuse Patient Records regulations: The Federal rules restrict any use of the information to criminally investigate or prosecute any alcohol or drug abuse patient.[facility] HospitalIn the event this information is protected by the Federal Confidentiality of Alcohol and Drug Abuse Patient Records regulations: The Federal rules restrict any use of the information to criminally investigate or prosecute any alcohol or drug abuse patient.[facility] HospitalIn the event this information is protected by the Federal Confidentiality of Alcohol and Drug Abuse Patient Records regulations: The Federal rules restrict any use of the information to criminally investigate or prosecute any alcohol or drug abuse patient.[facility] HospitalIn the event this information is protected by the Federal Confidentiality of Alcohol and Drug Abuse Patient Records regulations: The Federal rules restrict any use of the information to criminally investigate or prosecute any alcohol or drug abuse patient.[facility] HospitalIn the event this information is protected by the Federal Confidentiality of Alcohol and Drug Abuse Patient Records regulations: The Federal rules restrict any use of the information to criminally investigate or prosecute any alcohol or drug abuse patient.[facility] HospitalIn the event this information is protected by the Federal Confidentiality of Alcohol and Drug Abuse Patient Records regulations: The Federal rules restrict any use of the information to criminally investigate or prosecute any alcohol or drug abuse patient.[facility] HospitalIn the event this information is protected by the Federal Confidentiality of Alcohol and Drug Abuse Patient Records regulations: The Federal rules restrict any use of the information to criminally investigate or prosecute any alcohol or drug abuse patient.[facility] HospitalIn the event this information is protected by the Federal Confidentiality of Alcohol and Drug Abuse Patient Records regulations: The Federal rules restrict any use of the information to criminally investigate or prosecute any alcohol or drug abuse patient.[facility] HospitalIn the event this information is protected by the Federal Confidentiality of Alcohol and Drug Abuse Patient Records regulations: The Federal rules restrict any use of the information to criminally investigate or prosecute any alcohol or drug abuse patient.[facility] HospitalIn the event this information is protected by the Federal Confidentiality of Alcohol and Drug Abuse Patient Records regulations: The Federal rules restrict any use of the information to criminally investigate or prosecute any alcohol or drug abuse patient.[facility] HospitalIn the event this information is protected by the Federal Confidentiality of Alcohol and Drug Abuse Patient Records regulations: The Federal rules restrict any use of the information to criminally investigate or prosecute any alcohol or drug abuse patient.[facility] HospitalIn the event this information is protected by the Federal Confidentiality of Alcohol and Drug Abuse Patient Records regulations: The Federal rules restrict any use of the information to criminally investigate or prosecute any alcohol or drug abuse patient.[facility] HospitalIn the event this information is protected by the Federal Confidentiality of Alcohol and Drug Abuse Patient Records regulations: The Federal rules restrict any use of the information to criminally investigate or prosecute any alcohol or drug abuse patient.[facility] HospitalIn the event this information is protected by the Federal Confidentiality of Alcohol and Drug Abuse Patient Records regulations: The Federal rules restrict any use of the information to criminally investigate or prosecute any alcohol or drug abuse patient.[facility] HospitalIn the event this information is protected by the Federal Confidentiality of Alcohol and Drug Abuse Patient Records regulations: The Federal rules restrict any use of the information to criminally investigate or prosecute any alcohol or drug abuse patient.[facility] HospitalIn the event this information is protected by the Federal Confidentiality of Alcohol and Drug Abuse Patient Records regulations: The Federal rules restrict any use of the information to criminally investigate or prosecute any alcohol or drug abuse patient.[facility] HospitalIn the event this information is protected by the Federal Confidentiality of Alcohol and Drug Abuse Patient Records regulations: The Federal rules restrict any use of the information to criminally investigate or prosecute any alcohol or drug abuse patient.[facility] HospitalIn the event this information is protected by the Federal Confidentiality of Alcohol and Drug Abuse Patient Records regulations: The Federal rules restrict any use of the information to criminally investigate or prosecute any alcohol or drug abuse patient.[facility] HospitalIn the event this information is protected by the Federal Confidentiality of Alcohol and Drug Abuse Patient Records regulations: The Federal rules restrict any use of the information to criminally investigate or prosecute any alcohol or drug abuse patient.[facility] HospitalIn the event this information is protected by the Federal Confidentiality of Alcohol and Drug Abuse Patient Records regulations: The Federal rules restrict any use of the information to criminally investigate or prosecute any alcohol or drug abuse patient.[facility] HospitalIn the event this information is protected by the Federal Confidentiality of Alcohol and Drug Abuse Patient Records regulations: The Federal rules restrict any use of the information to criminally investigate or prosecute any alcohol or drug abuse patient.[facility] HospitalIn the event this information is protected by the Federal Confidentiality of Alcohol and Drug Abuse Patient Records regulations: The Federal rules restrict any use of the information to criminally investigate or prosecute any alcohol or drug abuse patient.[facility] HospitalIn the event this information is protected by the Federal Confidentiality of Alcohol and Drug Abuse Patient Records regulations: The Federal rules restrict any use of the information to criminally investigate or prosecute any alcohol or drug abuse patient.[facility] HospitalIn the event this information is protected by the Federal Confidentiality of Alcohol and Drug Abuse Patient Records regulations: The Federal rules restrict any use of the information to criminally investigate or prosecute any alcohol or drug abuse patient.[facility] HospitalIn the event this information is protected by the Federal Confidentiality of Alcohol and Drug Abuse Patient Records regulations: The Federal rules restrict any use of the information to criminally investigate or prosecute any alcohol or drug abuse patient.[facility] HospitalIn the event this information is protected by the Federal Confidentiality of Alcohol and Drug Abuse Patient Records regulations: The Federal rules restrict any use of the information to criminally investigate or prosecute any alcohol or drug abuse patient.[facility] HospitalIn the event this information is protected by the Federal Confidentiality of Alcohol and Drug Abuse Patient Records regulations: The Federal rules restrict any use of the information to criminally investigate or prosecute any alcohol or drug abuse patient.[facility] HospitalIn the event this information is protected by the Federal Confidentiality of Alcohol and Drug Abuse Patient Records regulations: The Federal rules restrict any use of the information to criminally investigate or prosecute any alcohol or drug abuse patient.[facility] HospitalIn the event this information is protected by the Federal Confidentiality of Alcohol and Drug Abuse Patient Records regulations: The Federal rules restrict any use of the information to criminally investigate or prosecute any alcohol or drug abuse patient.[facility] HospitalIn the event this information is protected by the Federal Confidentiality of Alcohol and Drug Abuse Patient Records regulations: The Federal rules restrict any use of the information to criminally investigate or prosecute any alcohol or drug abuse patient.[facility] HospitalIn the event this information is protected by the Federal Confidentiality of Alcohol and Drug Abuse Patient Records regulations: The Federal rules restrict any use of the information to criminally investigate or prosecute any alcohol or drug abuse patient.[facility] HospitalIn the event this information is protected by the Federal Confidentiality of Alcohol and Drug Abuse Patient Records regulations: The Federal rules restrict any use of the information to criminally investigate or prosecute any alcohol or drug abuse patient.[facility] HospitalIn the event this information is protected by the Federal Confidentiality of Alcohol and Drug Abuse Patient Records regulations: The Federal rules restrict any use of the information to criminally investigate or prosecute any alcohol or drug abuse patient.[facility] HospitalIn the event this information is protected by the Federal Confidentiality of Alcohol and Drug Abuse Patient Records regulations: The Federal rules restrict any use of the information to criminally investigate or prosecute any alcohol or drug abuse patient.[facility] HospitalIn the event this information is protected by the Federal Confidentiality of Alcohol and Drug Abuse Patient Records regulations: The Federal rules restrict any use of the information to criminally investigate or prosecute any alcohol or drug abuse patient.[facility] HospitalIn the event this information is protected by the Federal Confidentiality of Alcohol and Drug Abuse Patient Records regulations: The Federal rules restrict any use of the information to criminally investigate or prosecute any alcohol or drug abuse patient.[facility] HospitalIn the event this information is protected by the Federal Confidentiality of Alcohol and Drug Abuse Patient Records regulations: The Federal rules restrict any use of the information to criminally investigate or prosecute any alcohol or drug abuse patient.[facility] HospitalIn the event this information is protected by the Federal Confidentiality of Alcohol and Drug Abuse Patient Records regulations: The Federal rules restrict any use of the information to criminally investigate or prosecute any alcohol or drug abuse patient.[facility] HospitalIn the event this information is protected by the Federal Confidentiality of Alcohol and Drug Abuse Patient Records regulations: The Federal rules restrict any use of the information to criminally investigate or prosecute any alcohol or drug abuse patient.[facility] HospitalIn the event this information is protected by the Federal Confidentiality of Alcohol and Drug Abuse Patient Records regulations: The Federal rules restrict any use of the information to criminally investigate or prosecute any alcohol or drug abuse patient.[facility] HospitalIn the event this information is protected by the Federal Confidentiality of Alcohol and Drug Abuse Patient Records regulations: The Federal rules restrict any use of the information to criminally investigate or prosecute any alcohol or drug abuse patient.[facility] HospitalIn the event this information is protected by the Federal Confidentiality of Alcohol and Drug Abuse Patient Records regulations: The Federal rules restrict any use of the information to criminally investigate or prosecute any alcohol or drug abuse patient.[facility] HospitalIn the event this information is protected by the Federal Confidentiality of Alcohol and Drug Abuse Patient Records regulations: The Federal rules restrict any use of the information to criminally investigate or prosecute any alcohol or drug abuse patient.[facility] HospitalIn the event this information is protected by the Federal Confidentiality of Alcohol and Drug Abuse Patient Records regulations: The Federal rules restrict any use of the information to criminally investigate or prosecute any alcohol or drug abuse patient.[facility] HospitalIn the event this information is protected by the Federal Confidentiality of Alcohol and Drug Abuse Patient Records regulations: The Federal rules restrict any use of the information to criminally investigate or prosecute any alcohol or drug abuse patient.[facility] HospitalIn the event this information is protected by the Federal Confidentiality of Alcohol and Drug Abuse Patient Records regulations: The Federal rules restrict any use of the information to criminally investigate or prosecute any alcohol or drug abuse patient.[facility] HospitalIn the event this information is protected by the Federal Confidentiality of Alcohol and Drug Abuse Patient Records regulations: The Federal rules restrict any use of the information to criminally investigate or prosecute any alcohol or drug abuse patient.[facility] HospitalIn the event this information is protected by the Federal Confidentiality of Alcohol and Drug Abuse Patient Records regulations: The Federal rules restrict any use of the information to criminally investigate or prosecute any alcohol or drug abuse patient.[facility] HospitalIn the event this information is protected by the Federal Confidentiality of Alcohol and Drug Abuse Patient Records regulations: The Federal rules restrict any use of the information to criminally investigate or prosecute any alcohol or drug abuse patient.[facility] HospitalIn the event this information is protected by the Federal Confidentiality of Alcohol and Drug Abuse Patient Records regulations: The Federal rules restrict any use of the information to criminally investigate or prosecute any alcohol or drug abuse patient.[facility] HospitalIn the event this information is protected by the Federal Confidentiality of Alcohol and Drug Abuse Patient Records regulations: The Federal rules restrict any use of the information to criminally investigate or prosecute any alcohol or drug abuse patient.[facility] HospitalIn the event this information is protected by the Federal Confidentiality of Alcohol and Drug Abuse Patient Records regulations: The Federal rules restrict any use of the information to criminally investigate or prosecute any alcohol or drug abuse patient.[facility] HospitalIn the event this information is protected by the Federal Confidentiality of Alcohol and Drug Abuse Patient Records regulations: The Federal rules restrict any use of the information to criminally investigate or prosecute any alcohol or drug abuse patient.[facility] HospitalIn the event this information is protected by the Federal Confidentiality of Alcohol and Drug Abuse Patient Records regulations: The Federal rules restrict any use of the information to criminally investigate or prosecute any alcohol or drug abuse patient.[facility] HospitalIn the event this information is protected by the Federal Confidentiality of Alcohol and Drug Abuse Patient Records regulations: The Federal rules restrict any use of the information to criminally investigate or prosecute any alcohol or drug abuse patient.[facility] HospitalIn the event this information is protected by the Federal Confidentiality of Alcohol and Drug Abuse Patient Records regulations: The Federal rules restrict any use of the information to criminally investigate or prosecute any alcohol or drug abuse patient.[facility] HospitalIn the event this information is protected by the Federal Confidentiality of Alcohol and Drug Abuse Patient Records regulations: The Federal rules restrict any use of the information to criminally investigate or prosecute any alcohol or drug abuse patient.[facility] HospitalIn the event this information is protected by the Federal Confidentiality of Alcohol and Drug Abuse Patient Records regulations: The Federal rules restrict any use of the information to criminally investigate or prosecute any alcohol or drug abuse patient.[facility] HospitalIn the event this information is protected by the Federal Confidentiality of Alcohol and Drug Abuse Patient Records regulations: The Federal rules restrict any use of the information to criminally investigate or prosecute any alcohol or drug abuse patient.[facility] HospitalIn the event this information is protected by the Federal Confidentiality of Alcohol and Drug Abuse Patient Records regulations: The Federal rules restrict any use of the information to criminally investigate or prosecute any alcohol or drug abuse patient.[facility] HospitalIn the event this information is protected by the Federal Confidentiality of Alcohol and Drug Abuse Patient Records regulations: The Federal rules restrict any use of the information to criminally investigate or prosecute any alcohol or drug abuse patient.[facility] HospitalIn the event this information is protected by the Federal Confidentiality of Alcohol and Drug Abuse Patient Records regulations: The Federal rules restrict any use of the information to criminally investigate or prosecute any alcohol or drug abuse patient.[facility] HospitalIn the event this information is protected by the Federal Confidentiality of Alcohol and Drug Abuse Patient Records regulations: The Federal rules restrict any use of the information to criminally investigate or prosecute any alcohol or drug abuse patient.[facility] HospitalIn the event this information is protected by the Federal Confidentiality of Alcohol and Drug Abuse Patient Records regulations: The Federal rules restrict any use of the information to criminally investigate or prosecute any alcohol or drug abuse patient.[facility] HospitalIn the event this information is protected by the Federal Confidentiality of Alcohol and Drug Abuse Patient Records regulations: The Federal rules restrict any use of the information to criminally investigate or prosecute any alcohol or drug abuse patient.[facility] HospitalIn the event this information is protected by the Federal Confidentiality of Alcohol and Drug Abuse Patient Records regulations: The Federal rules restrict any use of the information to criminally investigate or prosecute any alcohol or drug abuse patient.[facility] HospitalIn the event this information is protected by the Federal Confidentiality of Alcohol and Drug Abuse Patient Records regulations: The Federal rules restrict any use of the information to criminally investigate or prosecute any alcohol or drug abuse patient.[facility] HospitalIn the event this information is protected by the Federal Confidentiality of Alcohol and Drug Abuse Patient Records regulations: The Federal rules restrict any use of the information to criminally investigate or prosecute any alcohol or drug abuse patient.[facility] HospitalIn the event this information is protected by the Federal Confidentiality of Alcohol and Drug Abuse Patient Records regulations: The Federal rules restrict any use of the information to criminally investigate or prosecute any alcohol or drug abuse patient.[facility] HospitalIn the event this information is protected by the Federal Confidentiality of Alcohol and Drug Abuse Patient Records regulations: The Federal rules restrict any use of the information to criminally investigate or prosecute any alcohol or drug abuse patient.[facility] HospitalIn the event this information is protected by the Federal Confidentiality of Alcohol and Drug Abuse Patient Records regulations: The Federal rules restrict any use of the information to criminally investigate or prosecute any alcohol or drug abuse patient.[facility] HospitalIn the event this information is protected by the Federal Confidentiality of Alcohol and Drug Abuse Patient Records regulations: The Federal rules restrict any use of the information to criminally investigate or prosecute any alcohol or drug abuse patient.[facility] HospitalIn the event this information is protected by the Federal Confidentiality of Alcohol and Drug Abuse Patient Records regulations: The Federal rules restrict any use of the information to criminally investigate or prosecute any alcohol or drug abuse patient.[facility] HospitalIn the event this information is protected by the Federal Confidentiality of Alcohol and Drug Abuse Patient Records regulations: The Federal rules restrict any use of the information to criminally investigate or prosecute any alcohol or drug abuse patient.[facility] HospitalIn the event this information is protected by the Federal Confidentiality of Alcohol and Drug Abuse Patient Records regulations: The Federal rules restrict any use of the information to criminally investigate or prosecute any alcohol or drug abuse patient.[facility] HospitalIn the event this information is protected by the Federal Confidentiality of Alcohol and Drug Abuse Patient Records regulations: The Federal rules restrict any use of the information to criminally investigate or prosecute any alcohol or drug abuse patient.[facility] HospitalIn the event this information is protected by the Federal Confidentiality of Alcohol and Drug Abuse Patient Records regulations: The Federal rules restrict any use of the information to criminally investigate or prosecute any alcohol or drug abuse patient.[facility] HospitalIn the event this information is protected by the Federal Confidentiality of Alcohol and Drug Abuse Patient Records regulations: The Federal rules restrict any use of the information to criminally investigate or prosecute any alcohol or drug abuse patient.[facility] HospitalIn the event this information is protected by the Federal Confidentiality of Alcohol and Drug Abuse Patient Records regulations: The Federal rules restrict any use of the information to criminally investigate or prosecute any alcohol or drug abuse patient.[facility] HospitalIn the event this information is protected by the Federal Confidentiality of Alcohol and Drug Abuse Patient Records regulations: The Federal rules restrict any use of the information to criminally investigate or prosecute any alcohol or drug abuse patient.[facility] HospitalIn the event this information is protected by the Federal Confidentiality of Alcohol and Drug Abuse Patient Records regulations: The Federal rules restrict any use of the information to criminally investigate or prosecute any alcohol or drug abuse patient.[facility] HospitalIn the event this information is protected by the Federal Confidentiality of Alcohol and Drug Abuse Patient Records regulations: The Federal rules restrict any use of the information to criminally investigate or prosecute any alcohol or drug abuse patient.[facility] HospitalIn the event this information is protected by the Federal Confidentiality of Alcohol and Drug Abuse Patient Records regulations: The Federal rules restrict any use of the information to criminally investigate or prosecute any alcohol or drug abuse patient.[facility] HospitalIn the event this information is protected by the Federal Confidentiality of Alcohol and Drug Abuse Patient Records regulations: The Federal rules restrict any use of the information to criminally investigate or prosecute any alcohol or drug abuse patient.[facility] HospitalIn the event this information is protected by the Federal Confidentiality of Alcohol and Drug Abuse Patient Records regulations: The Federal rules restrict any use of the information to criminally investigate or prosecute any alcohol or drug abuse patient.[facility] HospitalIn the event this information is protected by the Federal Confidentiality of Alcohol and Drug Abuse Patient Records regulations: The Federal rules restrict any use of the information to criminally investigate or prosecute any alcohol or drug abuse patient.[facility] HospitalIn the event this information is protected by the Federal Confidentiality of Alcohol and Drug Abuse Patient Records regulations: The Federal rules restrict any use of the information to criminally investigate or prosecute any alcohol or drug abuse patient.[facility] Reason for Visit (unrecogniz ed section and content) Reason Onset Date Comments Refill Request 05/28/2021 Reason Comments Refill Request Reason Onset Date Comments Refill Request 06/20/2021 Reason Onset Date Comments Refill Request 06/22/2021 Reason Comments Recheck Follow up Specialty Diagnoses / Procedures Referred By Contac t Referred To Contact Internal Medicine / INTERNAL MEDICINE Diagnoses 4 wk followup Procedures 4C Dali Monreal APRN.PLATE FILLER [address] [place] [address] Referral ID Status Reason Start Date Expiration Date V isits Requested Visits Authorized [id number] Closed Financial Clearance Not Required Patient Cleared - INN Insurance Found 06/29/2021 03/03/2022 1 1 Reason Onset Date Comments Refill Request 07/05/2021 Refill Request 07/07/2021 Specialty Diagnoses / Procedures Referred By Contac t Referred To Contact Internal Medicine / INTERNAL MEDICINE Diagnoses 4 week follow up Procedures OFFICE/OUTPATIENT ESTABLISHED MOD MDM 30-39 MIN 4C Velvet Kemp MD [address] [place] [address] Dali Rice APRN.PLATE FILLER [address] [place] [address] Referral ID Status Reason Start Date Expiration Date Visits Re quested Visits Authorized [id number] Closed 07/26/2021 03/03/2022 1 1 Reason Comments Results Reason Onset Date Comments Population Health Navigation Outreach 08/11/2021 [employer] Care Gaps Reason Onset Date Comments Refill Request 07/06/2021 Reason Comments Patient Request Reason Comments Patient Update Patient Request Reason Onset Date Comments Community Monitoring Outreach 08/30/2021 CH F/ COPD/ CKD CDM Outreach Reason Onset Date Comments Refill Request 09/07/2021 Reason Onset Date Comments Community Monitoring Outreach 10/05/2021 CH F/ COPD/ CKD CDM Outreach Reason Comments Medication Request Patient Update Reason Onset Date Comments Opened In Error 11/09/2021 . Reason Onset Date Comments Community Monitoring Outreach 11/09/2021 In sight CDM Escalation Reason Onset Date Comments Refill Request 11/09/2021 Reason Comments Dizziness Reason Onset Date Comments Refill Request 12/05/2021 Reason Onset Date Comments Refill Request 12/15/2021 Reason Onset Date Comments Community Monitoring Outreach 12/19/2021 In sight CDM escalation Reason Onset Date Comments Refill Request 12/20/2021 Reason Onset Date Comments Refill Request 12/26/2021 Reason Comments Recheck Follow up Reason Comments Recheck Ongoing diarrhea, wo uld like referral to Gi Reason Comments Results Reason Comments Orders Reason Onset Date Comments Refill Request 02/17/2022 Reason Onset Date Comments Refill Request 02/21/2022 Reason Onset Date Comments Refill Request 03/06/2022 Reason Onset Date Comments Refill Request 03/12/2022 Reason Comments Patient Request Orders Reason Comments results Reason Onset Date Comments Refill Request 03/28/2022 SEE RX NOTES Reason Onset Date Comments Community Monitoring Outreach 04/05/2022 CD M telephonic outreach Reason Onset Date Comments Community Monitoring Outreach 04/06/2022 CD M telephonic outreach Reason Onset Date Comments Community Monitoring Outreach 04/19/2022 CD M telephonic outreach Reason Onset Date Comments Refill Request 04/24/2022 Reason Onset Date Comments Community Monitoring Outreach 05/02/2022 CD M telephonic outreach Reason Onset Date Comments Refill Request 05/10/2022 Reason Onset Date Comments Medication Question 05/27/2022 Reason Onset Date Comments Refill Request 05/25/2022 Reason Onset Date Comments Community Monitoring Outreach 05/29/2022 CD M telephonic outreach Reason Onset Date Comments Community Monitoring Outreach 05/30/2022 CD M telephonic outreach Reason Onset Date Comments Community Monitoring Outreach 06/12/2022 CD M telephonic outreach Reason Onset Date Comments Community Monitoring Outreach 06/13/2022 CD M telephonic outreach Reason Onset Date Comments Community Monitoring Outreach 06/26/2022 CD M Telephonic Outreach - Routine Reason Onset Date Comments Community Monitoring Outreach 06/27/2022 CD M Telephonic Outreach - Routine Reason Comments Medication clarification Reason Onset Date Comments Refill Request 06/28/2022 Reason Onset Date Comments Population Health Navigation Outreach 07/31/2022 [facility] care gap Reason Onset Date Comments Refill Request 08/29/2022 Reason Onset Date Comments community monitoring outreach 08/30/2022 CD M telephonic Reason Onset Date Comments community monitoring outreach 09/28/2022 CD M telephonic Reason Comments bh consult Reason Onset Date Comments Refill Request 10/02/2022 Reason Comments Results Requesting xray resu lts Reason Comments Physical annual Reason Comments Patient Update Reason Onset Date Comments community monitoring outreach 10/15/2022 CD M telephonic Reason Onset Date Comments Refill Request 10/24/2022 Reason Onset Date Comments Refill Request 11/03/2022 Reason Onset Date Comments community monitoring outreach 11/12/2022 CD M telephonic Reason Onset Date Comments Refill Request 11/11/2022 Reason Comments Medication Request Reason Onset Date Comments Refill Request 11/19/2022 Reason Onset Date Comments community monitoring outreach 12/10/2022 CD M telephonic Reason Onset Date Comments community monitoring outreach 12/11/2022 CD M telephonic Reason Onset Date Comments Refill Request 12/27/[address] Specialty Diagnoses / Procedures Referred By Contac t Referred To Contact CT IMAGING Diagnoses Elevated lipase Elevated amylase RUQ pain Nausea Chronic diarrhea Procedures CT ABDOMEN WO IVCON CT ABDOMEN W/O CONTRAST Dali Rice APRN.PLATE FILLER [address] [place] [address] [place] [address] Referral ID Status Reason Start Date Expiration Date V isits Requested Visits Authorized [id number] Closed Auto-Generate d Referral 02/01/2022 03/03/2023 1 1 Reason Onset Date Comments Refill Request 09/20/2022 Reason Onset Date Comments Refill Request 01/20/2023 Refill Request 01/21/2023 Reason Onset Date Comments Refill Request 12/26/2022 Refill Request 01/21/2023 Reason Onset Date Comments community monitoring outreach 01/22/2023 CD M telephonic Reason Onset Date Comments Refill Request 02/06/2023 Reason Onset Date Comments Refill Request 04/13/2023 Reason Comments Insurance Authorization Reason Onset Date Comments Refill Request 04/15/2023 Reason Onset Date Comments community monitoring outreach 04/15/2023 CD M telephonic Reason Comments Recheck Reason Comments Appointment Reason Onset Date Comments Population Health Navigation Outreach 05/10/2023 [facility] Annual Wellness Visit Reason Comments Patient does not want Rx's sent to [facility] Reason Comments Appointment Appointment Cancelle d due to Scheduling Error Reason Onset Date Comments Refill Request 05/17/2023 Reason Comments Hospital F/U Reason Comments Patient Question Reason Comments rsv Pneumonia Specialty Diagnoses / Procedures Referred By Contac t Referred To Contact Pulmonary and Critical Care Medicine Diagnoses Community acquired pneumonia, unspecified laterality Acute on chronic respiratory failure with hypoxia (HCC) Centrilobular emphysema (HCC) Procedures CONSULT TO PULM/CRITICAL CARE OFFICE/OUTPATIENT [facility] 60 MINUTES Fernando Fernandez, SCRUBBER SYSTEM ATTENDANT.SECURITY ESCORT [address] [place] [address] Referral ID Status Reason Start Date Expiration Date V isits Requested Visits Authorized [id number] Closed PCP Requested Referral 06/10/2023 06/09/2024 1 1 Reason Onset Date Comments ACM ELIUD RN 07/08/2023 Medication Ad herence and Suspect Condition Review at request of payer Reason Onset Date Comments Refill Request 07/09/2023 Reason Onset Date Comments Refill Request 07/11/2023 Reason Onset Date Comments Refill Request 07/20/2023 Reason Onset Date Comments Refill Request 07/22/2023 Reason Onset Date Comments Refill Request 08/04/2023 Reason Onset Date Comments Refill Request 08/03/2023 Reason Comments Medication Problem Reason Onset Date Comments Refill Request 08/15/2023 Reason Onset Date Comments Refill Request 08/16/2023 Reason Onset Date Comments Refill Request 08/29/2023 Reason Comments Pain New Last seen 08/03/19 Right thumb CMCJ (cance lled surgery) Reason Comments Schedule Surgery OT EVAL Reason Onset Date Comments Refill Request 09/24/2023 Reason Comments Derm Problem Pt has area under Le ft nostril enlarged,redness, some drainage, severe headache, x 2 days Reason Onset Date Comments Refill Request 10/05/2023 Reason Comments PACC appointment Reason Onset Date Comments Refill Request 10/17/2023 Reason Onset Date Comments Refill Request 10/18/2023 Reason Comments Surgery Cancelled Reason Onset Date Comments Refill Request 10/26/2023 Reason Onset Date Comments Refill Request 10/29/2023 Reason Comments Follow Up med review, pain in spine 12/11 Reason Comments Recheck BP follow up blood p ressure Reason Onset Date Comments Refill Request 11/12/2023 Reason Comments Established Patient 169/102 Reason Comments Radio Gen RMP Radiology Service Pr ogress NotePATIENT NAME: Leyda LopezMRN: [id number] OF SERVICE: April 29, 2023TIME: 5:05 PMPATIENT IDENTITY VERIFICATION COMPLETED USING TWO (2) IDENTIFIERS: Name and Date of confirmed by patient verbally.FALL SCREENING: Has the patient had 2 falls in the last year or 1 fall with injury or currently using an Ambulatory Assistive Device (Walker, Cane, Wheelchair, Crutches, etc.)? NoPATIENT GENDER DATA: Female. status: : No Specialty Diagnoses / Procedures Referred By Contac t Referred To Contact XR IMAGING Diagnoses Pain in joint, multiple sites Procedures XR HAND GENERAL 3V PA/LAT/OBL BILATERAL RADEX HAND MINIMUM 3 VIEWS Mari Maritnez, SCRUBBER SYSTEM ATTENDANT.PLATE FILLER [address] [place] [address] [place] [address] Referral ID Status Reason Start Date Expiration Date V isits Requested Visits Authorized [id number] Closed Auto-Generate d Referral 04/29/2023 05/28/2024 1 1 Reason Comments Recheck HTN follow up Reason Comments Results Food Equipment Service Technician - Other Appointment Reason Onset Date Comments Refill Request 12/24/2023 Reason Comments Results Patient Question Medication Question Reason Onset Date Comments Refill Request 01/02/2024 Reason Onset Date Comments Refill Request 01/14/2024 Reason Comments Injections Reason Comments New Patient Evaluation Back Pain Specialty Diagnoses / Procedures Referred By Reji t Referred To Contact Pain Management Diagnoses Thoracic degenerative disc disease Pain syndrome, chronic Compression deformity of vertebra Procedures CONSULT TO PAIN MGT OFFICE/OUTPATIENT NEW HIGH MDM 60 MINUTES Dali Rice APRN.PLATE FILLER [address] [place] [address] Referral ID Status Reason Start Date Expiration Date V isits Requested Visits Authorized [id number] Closed PCP Requested Referral 11/06/2023 11/05/2024 1 1 Reason Onset Date Comments Refill Request 01/17/2024 Reason Onset Date Comments Refill Request 02/02/2024 Reason Onset Date Comments Refill Request 02/03/2024 Reason Onset Date Comments Refill Request 02/04/2024 Reason Comments Established Patient Follow Up Reason Comments No Show Reason Onset Date Comments Refill Request 03/07/2024 Reason Comments No Show #2 Reason Onset Date Comments Refill Request 03/30/2024 Reason Onset Date Comments Refill Request 03/31/2024 Reason Comments Recheck Medication follow up Reason Onset Date Comments Refill Request 04/16/2024 Reason Onset Date Comments Refill Request 04/24/2024 Reason Onset Date Comments Transition Of Care 05/04/2024 Reason Onset Date Comments Refill Request 05/04/2024 Reason Comments Transition Of Care [facility] 05/01/24-05/03/24: COPD exacerbation Reason Comments Handicap Placard Request DME Requests Reason Comments [facility] - request from patient . Reason Comments Opened In Error Reason Onset Date Comments Refill Request 06/01/2024 Reason Onset Date Comments Refill Request 06/14/2024 Reason Onset Date Comments Refill Request 06/17/2024 Reason Comments Recheck 3 month follow up Reason Comments Results, Lab Reason Onset Date Comments Refill Request 07/06/2024 Reason Comments order for nebulizer supplies Specialty Diagnoses / Procedures Referred By Reji t Referred To Contact CT IMAGING Diagnoses Memory change Procedures CT BRAIN WO IVCON CT HEAD/BRAIN W/O CONTRAST MATERIAL Dali Rice APRN.PLATE FILLER [address] [place] [address] Phone: tel: fax: [place] [address] Referral ID Status Reason Start Date Expiration Date V isits Requested Visits Authorized [id number] Closed Auto-Generate d Referral 06/29/2024 07/29/2025 1 1 Reason Onset Date Comments Refill Request 07/17/2024 Reason Comments Request for information from [facility] Care Teams (unrecognized sec tion and content) Head Baker Relationship Specialty Start Date End Date Velvet Palacio MD [address] [place] [address] PCP - General Internal Medicine 06/01/16 Juan Hillman, retread builderFull Service Vending Driver Internal Medicine 11/08/20 Head Baker Relationship Specialty Start Date End Date Velvet Palacio MD [address] [place] [address] PCP - General Internal Medicine 06/01/16 Juan Hillman, retread builderFull Service Vending Driver Internal Medicine 11/08/20 Head Baker Relationship Specialty Start Date End Date Velvet Palacio MD [address] [place] [address] PCP - General Internal Medicine 06/01/16 Juan Hillman, retread builderFull Service Vending Driver Internal Medicine 11/08/20 Head Baker Relationship Specialty Start Date End Date Velvet Palacio MD [address] [place] [address] PCP - General Internal Medicine 06/01/16 Juan Hillman, retread builderFull Service Vending Driver Internal Medicine 11/08/20 Head Baker Relationship Specialty Start Date End Date Velvet Palacio MD [address] [facility] [place] [address] PCP - General Internal Medicine 06/01/16 Juan Hillman, retread builderFull Service Vending Driver Internal Medicine 11/08/20 Head Baker Relationship Specialty Start Date End Date Velvet Palacio MD [address] [place] [address] PCP - General Internal Medicine 06/01/16 Juan Hillman, retread builderFull Service Vending Driver Internal Medicine 11/08/20 Head Baker Relationship Specialty Start Date End Date Velvet Palacio MD [address] [facility] [place] [address] PCP - General Internal Medicine 06/01/16 Juan Hillman, retread builderFull Service Vending Driver Internal Medicine 11/08/20 Head Baker Relationship Specialty Start Date End Date Velvet Palacio MD [address] [facility] [place] [address] PCP - General Internal Medicine 06/01/16 Juan Hillman, retread builderFull Service Vending Driver Internal Medicine 11/08/20 Head Baker Relationship Specialty Start Date End Date Velvet Palacio MD [address] [place] [address] PCP - General Internal Medicine 06/01/16 Juan Hillman, retread builderFull Service Vending Driver Internal Medicine 11/08/20 Head Baker Relationship Specialty Start Date End Date Velvet Palacio MD [address] [facility] [place] [address] PCP - General Internal Medicine 06/01/16 Juan Hillman, retread builderFull Service Vending Driver Internal Medicine 11/08/20 Head Baker Relationship Specialty Start Date End Date Velvet Palacio MD [address] [place] [address] PCP - General Internal Medicine 06/01/16 Juan Hillman, retread builderFull Service Vending Driver Internal Medicine 11/08/20 Head Baker Relationship Specialty Start Date End Date Velvet Palacio MD [address] [facility] [place] [address] PCP - General Internal Medicine 06/01/16 Juan Hillman, retread builderFull Service Vending Driver Internal Medicine 11/08/20 Head Baker Relationship Specialty Start Date End Date Velvet Palacio MD [address] [facility] [place] [address] PCP - General Internal Medicine 06/01/16 Juan Hillman, retread builderFull Service Vending Driver Internal Medicine 11/08/20 Head Baker Relationship Specialty Start Date End Date Velvet Palacio MD [address] [place] [address] PCP - General Internal Medicine 06/01/16 Juan Hillman, retread builderFull Service Vending Driver Internal Medicine 11/08/20 Head Baker Relationship Specialty Start Date End Date Velvet Palacio MD [address] [place] [address] PCP - General Internal Medicine 06/01/16 Juan Hillman, retread builderFull Service Vending Driver Internal Medicine 11/08/20 Head Baker Relationship Specialty Start Date End Date Velvet Palacio MD [address] [place] [address] PCP - General Internal Medicine 06/01/16 Juan Hillman, retread builderFull Service Vending Driver Internal Medicine 11/08/20 Head Baker Relationship Specialty Start Date End Date Velvet Palacio MD [address] [place] [address] PCP - General Internal Medicine 06/01/16 Hilda Chu, RN [address] [place] [address] Full Service Vending Driver 11/08/20 Head Baker Relationship Specialty Start Date End Date Velvet Palacio MD [address] [place] [address] PCP - General Internal Medicine 06/01/16 Hilda Chu, RN [address] [place] [address] Full Service Vending Driver 11/08/20 Head Baker Relationship Specialty Start Date End Date Velvet Palacio MD [address] [place] [address] PCP - General Internal Medicine 06/01/16 Hilda Chu, RN [address] [facility] [place] [address] Full Service Vending Driver 11/08/20 Head Baker Relationship Specialty Start Date End Date Velvet Palacio MD [address] [facility] [place] [address] PCP - General Internal Medicine 06/01/16 Hilda Chu, RN [address] [place] [address] Full Service Vending Driver 11/08/20 Head Baker Relationship Specialty Start Date End Date Velvet Palacio MD [address] [place] [address] PCP - General Internal Medicine 06/01/16 Kady Martinez RN Full Service Vending Driver Internal Medicine 11/08/20 01/02/22 Hilda Chu, RICARDO [address] [place] [address] Full Service Vending Driver 11/08/20 Head Baker Relationship Specialty Start Date End Date Velvet Palacio MD [address] [place] [address] PCP - General Internal Medicine 06/01/16 Hilda Chu, RN [address] [place] [address] Full Service Vending Driver 11/08/20 Head Baker Relationship Specialty Start Date End Date Velvet Palacio MD [address] [place] [address] PCP - General Internal Medicine 06/01/16 Hilda Chu, RN [address] [facility] [address] [place] [address] Full Service Vending Driver 01/02/22 Head Baker Relationship Specialty Start Date End Date Velvet Palacio MD [address] [place] [address] PCP - General Internal Medicine 06/01/16 Hilda Chu, RN [address] [facility] [place] [address] Full Service Vending Driver 01/02/22 Head Baker Relationship Specialty Start Date End Date Velvet Palacio MD [address] [place] [address] PCP - General Internal Medicine 06/01/16 Hilda Chu, RN [address] [place] [address] Full Service Vending Driver 01/02/22 Head Baker Relationship Specialty Start Date End Date Velvet Palacio MD [address] [place] [address] PCP - General Internal Medicine 06/01/16 Hilda Chu, RN [address] [place] [address] Full Service Vending Driver 01/02/22 Head Baker Relationship Specialty Start Date End Date Velvet Palacio MD [address] [place] [address] PCP - General Internal Medicine 06/01/16 Hilda Chu, RN [address] [place] [address] Full Service Vending Driver 01/02/22 Head Baker Relationship Specialty Start Date End Date Velvet Palacio MD [address] [place] [address] PCP - General Internal Medicine 06/01/16 Hilda Chu, RN [address] [place] [address] Full Service Vending Driver 01/02/22 Head Baker Relationship Specialty Start Date End Date Velvet Palacio MD [address] [place] [address] PCP - General Internal Medicine 06/01/16 Hilda Chu, RN [address] [place] [address] Full Service Vending Driver 01/02/22 Head Baker Relationship Specialty Start Date End Date Velvet Palacio MD [address] [place] [address] PCP - General Internal Medicine 06/01/16 Hilda Chu, RN [address] [place] [address] Full Service Vending Driver 01/02/22 Head Baker Relationship Specialty Start Date End Date Velvet Palacio MD [address] [place] [address] PCP - General Internal Medicine 06/01/16 Hilda Chu, RN [address] [place] [address] Full Service Vending Driver 01/02/22 Head Baker Relationship Specialty Start Date End Date Velvet Palacio MD [address] [place] [address] PCP - General Internal Medicine 06/01/16 Hilda Chu, RN [address] [place] [address] Full Service Vending Driver 01/02/22 Head Baker Relationship Specialty Start Date End Date Velvet Palacio MD [address] [place] [address] PCP - General Internal Medicine 08/15/22 Genia Nuñez, RN [address] [place] [address] Full Service Vending Driver Unspecified 08/01/22 Head Baker Relationship Specialty Start Date End Date Velvet Palacio MD [address] [place] [address] PCP - General Internal Medicine 08/15/22 Genia Nuñez, RN [address] [place] [address] Full Service Vending Driver Unspecified 08/01/22 Head Baker Relationship Specialty Start Date End Date Velvet Palacio MD [address] [place] [address] PCP - General Internal Medicine 08/15/22 Genia Nuñez, RN [address] [place] [address] Full Service Vending Driver Unspecified 08/01/22 Head Baker Relationship Specialty Start Date End Date Velvet Palacio MD [address] [place] [address] PCP - General Internal Medicine 08/15/22 Genia Nuñez, RN [address] [place] [address] Full Service Vending Driver Unspecified 08/01/22 Head Baker Relationship Specialty Start Date End Date Velvet Palacio MD [address] [place] [address] PCP - General Internal Medicine 08/15/22 Genia Nuñez, RICARDO [address] [place] [address] Full Service Vending Driver Unspecified 08/01/22 Head Baker Relationship Specialty Start Date End Date Velevt Palacio MD [address] [place] [address] PCP - General Internal Medicine 08/15/22 Genia Nuñez, RN [address] [place] [address] Full Service Vending Driver Unspecified 08/01/22 Head Baker Relationship Specialty Start Date End Date Velvet Palacio MD [address] [place] [address] PCP - General Internal Medicine 08/15/22 Genia Nuñez, RN [address] [place] [address] Full Service Vending Driver Unspecified 08/01/22 Head Baker Relationship Specialty Start Date End Date Velvet Palacio MD [address] [place] [address] PCP - General Internal Medicine 08/15/22 Genia Nuñez, RN [address] [place] [address] Full Service Vending Driver Unspecified 08/01/22 Head Baker Relationship Specialty Start Date End Date Velvet Palacio MD [address] [place] [address] PCP - General Internal Medicine 08/15/22 Genia Nuñez, RICARDO [address] [place] [address] Full Service Vending Driver Unspecified 08/01/22 Head Baker Relationship Specialty Start Date End Date Velvet Palacio MD [address] [place] [address] PCP - General Internal Medicine 08/15/22 Genia Nuñez RN [address] [place] [address] Full Service Vending Driver Unspecified 08/01/22 Head Baker Relationship Specialty Start Date End Date Velvet Palacio MD [address] [place] [address] PCP - General Internal Medicine 08/15/22 Genia Nuñez RN [address] [place] [address] Full Service Vending Driver Unspecified 08/01/22 Head Baker Relationship Specialty Start Date End Date Velvet Palacio MD [address] [place] [address] PCP - General Internal Medicine 08/15/22 Genia Nuñez RN [address] [place] [address] Full Service Vending Driver Unspecified 08/01/22 Head Baker Relationship Specialty Start Date End Date Velvet Palacio MD [address] [place] [address] PCP - General Internal Medicine 08/15/22 Genia Nuñez RICARDO [address] [place], [place] [id number] Full Service Vending Driver Unspecified 08/01/22 Team Status: Active Member Role Status Dates Dr. Velvet Palacio MD Family Provider Active DALI RICE CARPET BINDER-C Primary Care Provider Active Team Status: Inactive Member Role Status Dates Dr. Sánchez Bhatti , Emergency Provider Active DALI RICE CARPET BINDER-C Primary Care Provider Active Team Status: Inactive Member Role Status Dates Dr. Velvet Palacio MD Primary Care Provider Active Dr. Lukasz Rueda DO Attending Provider, Referring Provider, Emergency Provider Active Head Baker Relationship Specialty Start Date End Date Velvet Palacio MD [address] [place] [address] PCP - General Internal Medicine 08/15/22 Genia Nuñez RN [address] [place], [place] [id number] Full Service Vending Driver Unspecified 08/01/22 Head Baker Relationship Specialty Start Date End Date Velvet Palacio MD [address] [place] [address] PCP - General Internal Medicine 06/01/16 08/02/22 Hilda Chu, RICARDO [address] [place] [address] Full Service Vending Driver 01/02/2207/04 Head Baker Relationship Specialty Start Date End Date Velvet Palacio MD [address] [place] [address] PCP - General Internal Medicine 06/01/16 08/02/22 Hilda Chu, RICARDO [address] [place], [place] [phone] Full Service Vending Driver 01/02/2207/04 Head Baker Relationship Specialty Start Date End Date Velvet Palacio MD [address] [place] [address] PCP - General Internal Medicine 08/15/22 Genia Nuñez, RICARDO [address] [place], [place] [phone] Full Service Vending Driver Unspecified 08/01/22 Head Baker Relationship Specialty Start Date End Date Velvet Palacio MD [address] [place] [address] PCP - General Internal Medicine 08/15/22 Genia Nuñez RN [address] [place], [place] [id number] Full Service Vending Driver Unspecified 08/01/22 Head Baker Relationship Specialty Start Date End Date Velvet Palacio MD [address] [place] [address] PCP - General Internal Medicine 08/15/22 Head Baker Relationship Specialty Start Date End Date Velvet Palacio MD [address] [place] [address] PCP - General Internal Medicine 08/15/22 Head Baker Relationship Specialty Start Date End Date Velvet Palacio MD [address] [place] [address] PCP - General Internal Medicine 08/15/22 Head Baker Relationship Specialty Start Date End Date Velvet Palaico MD [address] [place] [address] PCP - General Internal Medicine 08/15/22 Head Baker Relationship Specialty Start Date End Date Velvet Palacio MD [address] [place] [address] PCP - General Internal Medicine 08/15/22 Team Status: Active Member Role Status Dates DALI RICE , CARPET BINDER-C Primary Care Provider Active Dr. Ness Yu MD Emergency Provider Active Dr. Himanshu Aldana MD Admit Provider, Attending Prov ider Active Team Status: Active Member Role Status Luciano MCNALLY OLDER , CARPET BINDER-C Primary Care Provider Active Dr. Ness Yu MD Emergency Provider Active Dr. Himanshu Aldana MD Admit Provider, Attending Provider, Other Provider Active Team Status: Active Member Role Status Dates DALI OLDER , CARPET BINDER-C Primary Care Provider Active Dr. Ness Yu MD Emergency Provider Active Dr. Himanshu Aldana MD Admit Provider, Other Provider Active Dr. Sid Hillman MD Attending Provider, Other Provi brian Active Team Status: Active Member Role Status Dates DALI OLDER , CARPET BINDER-C Primary Care Provider Active Dr. Ness Yu MD Emergency Provider Active Dr. Himanshu Aldana MD Admit Provider, Other Provider Active Dr. Sid Hillman MD Attending Provider, Other Provi brian Active Dr. Merrick White MD Other Provider Active Team Status: Active Member Role Status Dates DALI OLDER , CARPET BINDER-C Primary Care Provider Active Dr. Ness Yu MD Emergency Provider Active Dr. Himanshu Aldana MD Admit Provider, Other Provider Active Dr. Merrick White MD Other Provider Active Dr. Trey oJe DO Attending Provider, Other Provid er Active Dr. Sid Hillman MD Other Provider Active Team Status: Active Member Role Status Luciano MCNALLY OLDER , CARPET BINDER-C Primary Care Provider Active Dr. Ness Yu MD Emergency Provider Active Dr. Himanshu Aldana MD Admit Provider, Other Provider Active Dr. Trey Joe DO Attending Provider, Other Provid er Active Dr. Sid Hillman MD Other Provider Active Dr. Merrick White MD Other Provider Active Team Status: Active Member Role Status Luciano MCNALLY OLDER , CARPET BINDER-C Primary Care Provider Active Dr. Ness Yu MD Emergency Provider Active Dr. Himanshu Aldana MD Admit Provider, Other Provider Active Dr. Trey Joe DO Attending Provider, Other Provid er Active Dr. Sid Hillman MD Other Provider Active Dr. Merrick White MD Other Provider Active Dr. Roque Mirza MD Other Provider Active Dr. Chato Jon MD Other Provider Active Dr. Kun Willams DO Other Provider Active Dr. Domingo Penn MD Other Provider Active Dr. Patricia Dyer MD Other Provider Active Dr. Frederic Gómez MD Other Provider Active Dr. Danielle Miguel MD Other Provider Active Dr. North Berry MD Other Provider Active Dr. Grover Urias MD Other Provider Active Dr. Norman Lozano MD Other Provider Active Dr. Joel Holguin MD Other Provider Active Dr. Rahul Jaimes MD Other Provider Active Team Status: Active Member Role Status Luciano RICE , CARPET BINDER-C Primary Care Provider Active Dr. Ness Yu MD Emergency Provider Active Dr. Himanshu Aldana MD Admit Provider, Other Provider Active Dr. Trey Joe DO Other Provider Active Dr. Sid Hillman MD Other Provider Active Dr. Merrick White MD Other Provider Active Dr. Roque Mirza MD Other Provider Active Dr. Chato Jon MD Other Provider Active Dr. Kun Willams , Attending Provider, Other Provide r Active Dr. Domingo Penn MD Other Provider Active Dr. Patricia Dyer MD Other Provider Active Dr. Frederic Gómez MD Other Provider Active Dr. Danielle Miguel MD Other Provider Active Dr. North Berry MD Other Provider Active Dr. Grover Urias MD Other Provider Active Dr. Norman Lozano MD Other Provider Active Dr. Joel Holguin MD Other Provider Active Dr. Rahul Jaimes MD Other Provider Active Team Status: Inactive Member Role Status Luciano RICE , CARPET BINDER-C Primary Care Provider Active Dr. Ness Yu MD Emergency Provider Active Dr. Himanshu Aldana MD Admit Provider, Other Provider Active Dr. Trey Joe DO Attending Provider Active Dr. Sid Hillman MD Other Provider Active Dr. Merrick White MD Other Provider Active Dr. Roque Mirza MD Other Provider Active Dr. Chato Jon MD Other Provider Active Dr. Kun Willams DO Other Provider Active Dr. Domingo Penn MD Other Provider Active Dr. Patricia Dyer MD Other Provider Active Dr. Frederic Gómez MD Other Provider Active Dr. Danielle Miguel MD Other Provider Active Dr. North Berry MD Other Provider Active Dr. Grover Urisa MD Other Provider Active Dr. Norman Lozano MD Other Provider Active Dr. Joel Holguin MD Other Provider Active Dr. Rahul Jaimes MD Other Provider Active Head Baker Relationship Specialty Start Date End Date Velvet Palacio MD [address] [facility] [place] [address] PCP - General Internal Medicine 08/15/22 Team Status: Active Member Role Status Dates DALI RICE , CARPET BINDER-C Primary Care Provider Active Dr. Ness Yu MD Emergency Provider Active Dr. Himanshu Aldana MD Admit Provider, Other Provider Active Dr. Trey Joe DO Referring Provider, Other Provid er Active Dr. Sid Hillman MD Other Provider Active Dr. Merrick White MD Other Provider Active Dr. Roque Mirza MD Other Provider Active Dr. Chato Jon MD Other Provider Active Dr. Kun Willams DO Attending Provider, Other Provide r Active Dr. Domingo Penn MD Other Provider Active Dr. Patricia Dyer MD Other Provider Active Dr. Frederic Gómez MD Other Provider Active Dr. Danielle Miguel MD Other Provider Active Dr. North Berry MD Other Provider Active Dr. Grover Urias MD Other Provider Active Dr. Norman Lozano MD Other Provider Active Dr. Joel Holguin MD Other Provider Active Dr. Rahul Jaimes MD Other Provider Active Team Status: Active Member Role Status Dates DALI RICE , CARPET BINDER-C Primary Care Provider Active Dr. Zurdo Howard DO Emergency Provider Active Dr. Sid Hillman MD Admit Provider, A ttending Provider, Other Provider Active Team Status: Active Member Role Status Dates DALI RICE , CARPET BINDER-C Primary Care Provider Active Dr. Zurdo Howard DO Emergency Provider Active Dr. Sid Hillman MD Admit Provider, Attending Provi brian Active Team Status: Active Member Role Status Dates DALI RICE , CARPET BINDER-C Primary Care Provider Active Dr. Zurdo Howard DO Emergency Provider Active Dr. Sid Hillman MD Admit Provider, Other Provider Active Dr. Diana Bates MD Attending Provider, Other Provid er Active Team Status: Active Member Role Status Dates DALI RICE , CARPET BINDER-C Primary Care Provider Active Dr. Filiberto Ron MD Attending Provider Active Team Status: Inactive Member Role Status Dates DALI RICE , CARPET BINDER-C Primary Care Provider Active Dr. Zurdo Howard DO Emergency Provider Active Dr. Sid Hillman MD Admit Provider, Other Provider Active Dr. Diana Bates MD Attending Provider Active Head Baker Relationship Specialty Start Date End Date Velvet Palacio MD [address] [place] [address] PCP - General Internal Medicine 08/15/22 Head Baker Relationship Specialty Start Date End Date Velvet Palacio MD [address] [place] [address] PCP - General Internal Medicine 08/15/22 Head Baker Relationship Specialty Start Date End Date Velvet Palacio MD [address] [place] [address] PCP - General Internal Medicine 08/15/22 Head Baker Relationship Specialty Start Date End Date Velvet Palacio MD [address] [place] [address] PCP - General Internal Medicine 08/15/22 Head Baker Relationship Specialty Start Date End Date Velvet Palacio MD [address] [place] [address] PCP - General Internal Medicine 08/15/22 Head Baker Relationship Specialty Start Date End Date Velvet Palacio MD [address] [place] [address] PCP - General Internal Medicine 08/15/22 Head Baker Relationship Specialty Start Date End Date Velvet Palacio MD [address] [place] [address] PCP - General Internal Medicine 08/15/22 Head Baker Relationship Specialty Start Date End Date Velvet Palacio MD [address] [place] [address] PCP - General Internal Medicine 08/15/22 Head Baker Relationship Specialty Start Date End Date Velvet Palacio MD [address] [place] [address] PCP - General Internal Medicine 08/15/22 Head Baker Relationship Specialty Start Date End Date Velvet Palacio MD [address] [place] [address] PCP - General Internal Medicine 08/15/22 Head Baker Relationship Specialty Start Date End Date Velvet Palacio MD [address] [place] [address] PCP - General Internal Medicine 08/15/22 Head Baker Relationship Specialty Start Date End Date Velvet Palacio MD [address] [place] [address] PCP - General Internal Medicine 08/15/22 Head Baker Relationship Specialty Start Date End Date Velvet Palacio MD [address] [place] [address] PCP - General Internal Medicine 08/15/22 Head Baker Relationship Specialty Start Date End Date Velvet Palacio MD [address] [place] [address] PCP - General Internal Medicine 08/15/22 Head Baker Relationship Specialty Start Date End Date Velvet Palacio MD [address] [place] [address] PCP - General Internal Medicine 08/15/22 Head Baker Relationship Specialty Start Date End Date Velvet Paalcio MD [address] [facility] [place] [address] PCP - General Internal Medicine 08/15/22 Head Baker Relationship Specialty Start Date End Date Velvet Palacio MD [address] [place] [address] PCP - General Internal Medicine 08/15/22 Head Baker Relationship Specialty Start Date End Date Velvet Palacio MD [address] [place] [address] PCP - General Internal Medicine 08/15/22 Head Baker Relationship Specialty Start Date End Date Velvet Palacio MD [address] [place] [address] PCP - General Internal Medicine 08/15/22 Head Baker Relationship Specialty Start Date End Date Velvet Palacio MD [address] [place] [address] PCP - General Internal Medicine 08/15/22 Head Baker Relationship Specialty Start Date End Date Velvet Palacio MD [address] [place] [address] PCP - General Internal Medicine 08/15/22 Head Baker Relationship Specialty Start Date End Date Velvet Palacio MD [address] [place] [address] PCP - General Internal Medicine 08/15/22 Head Baker Relationship Specialty Start Date End Date Velvet Palacio MD [address] [place] [address] PCP - General Internal Medicine 08/15/22 Head Baker Relationship Specialty Start Date End Date Velvet Palacio MD [address] [place] [address] PCP - General Internal Medicine 08/15/22 Head Baker Relationship Specialty Start Date End Date Velvet Palacio MD [address] [place] [address] PCP - General Internal Medicine 08/15/22 Genia Nuñez, RICARDO [address] [place] [address] Full Service Vending Driver Unspecified 08/01/2204/04 Head Baker Relationship Specialty Start Date End Date Velvet Palacio MD [address] [place] [address] PCP - General Internal Medicine 06/01/16 08/02/22 Kady Martinez RN Full Service Vending Driver Internal Medicine 11/08/20 01/02/22 Head Baker Relationship Specialty Start Date End Date Velvet Palacio MD [address] [place] [address] PCP - General Internal Medicine 08/15/22 Head Baker Relationship Specialty Start Date End Date Velvet Palacio MD [address] [place] [address] PCP - General Internal Medicine 08/15/22 Head Baker Relationship Specialty Start Date End Date Velvet Palacio MD [address] [place] [address] PCP - General Internal Medicine 08/15/22 Head Baker Relationship Specialty Start Date End Date Velvet Palacio MD [address] [place] [address] PCP - General Internal Medicine 08/15/22 Head Baker Relationship Specialty Start Date End Date Velvet Palacio MD [address] [place] [address] PCP - General Internal Medicine 08/15/22 Shelby Styles PA-C [address] [place], [place] 2902929 [phone] Airplane Cleaner Family [facility] 02/09/24 Dali Rice APRN.PLATE FILLER [address] [place] [address] Airplane Cleaner Internal Medicine 02/09/24 Ines Lopez PA-C [address] [place] [address] Airplane Cleaner Family Medicine 02/09/24 Head Baker Relationship Specialty Start Date End Date Velvet Palacio MD [address] [place] [address] PCP - General Internal Medicine 08/15/22 Shelby Styles PA-C [address] [place] [address] Airplane Cleaner Family [facility] 02/09/24 Dali Rice APRN.PLATE FILLER [address] [place] [address] Airplane Cleaner Internal Medicine 02/09/24 Ines Lopez PA-C [address] [place] [address] Airplane Cleaner Family [facility] 02/09/24 Head Baker Relationship Specialty Start Date End Date Velvet Palacio MD [address] [place] [address] PCP - General Internal Medicine 08/15/22 Shelby Styles PA-C [address] [place], [place] [id number] Airplane Cleaner Family Medicine 02/09/24 Dali Rice APRN.PLATE FILLER [address] [place] [address] Airplane Cleaner Internal Medicine 02/09/24 Ines Lopez PA-C [address] [place] [address] Airplane Cleaner Family [facility] 02/09/24 Head Baker Relationship Specialty Start Date End Date Velvet Palacio MD [address] [place] [address] PCP - General Internal Medicine 08/15/22 Shelby Styles PA-C [address] [place] [address] Airplane Cleaner Family Medicine 02/09/24 Dali Rice APRN.PLATE FILLER [address] [place] [address] Airplane Cleaner Internal Medicine 02/09/24 Ines Lopez PA-C [address] [place] [address] Airplane Cleaner Family Medicine 02/09/24 Head Baker Relationship Specialty Start Date End Date Velvet Palacio MD [address] [place] [address] PCP - General Internal Medicine 08/15/22 Shelby Styles PA-C [address] [place] [address] [phone] Airplane Cleaner Family Medicine 02/09/24 Dali Rice APRN.PLATE FILLER [address] [place] [address] Airplane Cleaner Internal Medicine 02/09/24 Ines Lopez PA-C [address] [place] [address] [facility] 02/09/24 Head Baker Relationship Specialty Start Date End Date Velvet Palacio MD [address] [place] [address] PCP - General Internal Medicine 08/15/22 Shelby Styles PA-C [address] [place] [address] Airplane Cleaner Family Medicine 02/09/24 Dali Rice, SCRUBBER SYSTEM ATTENDANT.PLATE FILLER [address] [place] [address] Airplane Cleaner Internal Medicine 02/09/24 Ines Lopez PA-C [address] [place] [address] Airplane Cleaner Family Medicine 02/09/24 Head Baker Relationship Specialty Start Date End Date Velvet Palacio MD [address] [place] [address] PCP - General Internal Medicine 08/15/22 Shelby Styles PA-C [address] [place] [address] Airplane Cleaner Family Medicine 02/09/24 Dali Rice APRN.PLATE FILLER [address] [place] [address] Airplane Cleaner Internal Medicine 02/09/24 Ines Lopez PA-C [address] [place] [address] Airplane Cleaner Family Medicine 02/09/24 Head Baker Relationship Specialty Start Date End Date Velvet Palacio MD [address] [place] [address] PCP - General Internal Medicine 08/15/22 Shelby Styles PA-C [address] [place] [address] Airplane Cleaner Family Medicine 02/09/24 Dali Rice APRN.PLATE FILLER [address] [facility] [place] [address] Airplane Cleaner Internal Medicine 02/09/24 Ines Lopez PA-C [address] [place] [address] Airplane Cleaner Family Medicine 02/09/24 Head Baker Relationship Specialty Start Date End Date Velvet Palacio MD [address] [place] [address] PCP - General Internal Medicine 08/15/22 Shelby Styles PA-C [address] [place] [address] Airplane Cleaner Family Medicine 02/09/24 Dali Rice APRN.PLATE FILLER [address] [place] [address] Airplane Cleaner Internal Medicine 02/09/24 Ines Lopez PA-C [address] [place] [address] Airplane Cleaner Family [facility] 02/09/24 Head Baker Relationship Specialty Start Date End Date Velvet Palacio MD [address] [place] [address] PCP - General Internal Medicine 08/15/22 Shelby Styles PA-C [address] [place] [address] Airplane Cleaner Family Medicine 02/09/24 Dali Rice APRN.PLATE FILLER [address] [place] [address] Airplane Cleaner Internal Medicine 02/09/24 Ines Lopez PA-C [address] [place] [address] Airplane Cleaner Family Medicine 02/09/24 Head Baker Relationship Specialty Start Date End Date Velvet Palacio MD [address] [place] [address] PCP - General Internal Medicine 08/15/22 Shelby Styles PA-C [address] [place], [place] 948[address] [phone] Airplane Cleaner Family Medicine 02/09/24 Dali Rice APRN.PLATE FILLER [address] [facility] [place] [address] Airplane Cleaner Internal Medicine 02/09/24 Ines Lopez PA-C [address] [place] [address] Airplane Cleaner Family Medicine 02/09/24 Head Baker Relationship Specialty Start Date End Date Velvet Palacio MD [address] [place] [address] PCP - General Internal Medicine 08/15/22 Shelby Styles PA-C [address] [place] [address] Airplane Cleaner Family Medicine 02/09/24 Dali Rice APRN.PLATE FILLER [address] [place] [address] Airplane Cleaner Internal Medicine 02/09/24 Ines Lopez PA-C [address] [place] [address] Airplane Cleaner Family Medicine 02/09/24 Head Baker Relationship Specialty Start Date End Date Velvet Palacio MD [address] [place] [address] PCP - General Internal Medicine 08/15/22 Shelby Styles PA-C [address] [place], [place] [id number] [facility] 02/09/24 Dali Rice APRN.PLATE FILLER [address] [facility] [place] [address] [employer] [facility] 02/09/24 Ines Lopez PA-C [address] [place] [address] [facility] 02/09/24 Head Baker Relationship Specialty Start Date End Date Velvet Palacio MD [address] [place] [address] PCP - General Internal Medicine 08/15/22 Shelby Styles PA-C [address] [place] [id number] [facility] 02/09/24 Dali Rice, SCRUBBER SYSTEM ATTENDANT.PLATE FILLER [address] [place] [address] [facility] 02/09/24 Ines Lopez PA-C [address] [facility] [place] [address] [facility] 02/09/24 Head Baker Relationship Specialty Start Date End Date Velvet Palacio MD [address] [facility] [place] [address] PCP - General Internal Medicine 08/15/22 Dali Rice APRN.PLATE FILLER [address] [place] [address] [employer] [facility] Internal Medicine 02/09/24 Head Baker Relationship Specialty Start Date End Date Velvet Palacio MD [address] [facility] [place] [address] PCP - General Internal Medicine 08/15/22 Dali Rice APRN.PLATE FILLER [address] [facility] [place] [address] [employer] Internal Medicine 02/09/24 Head Baker Relationship Specialty Start Date End Date Velvet Palacio MD [address] [facility] [place] [address] PCP - General Internal Medicine 08/15/22 Dali Rice APRN.PLATE FILLER [address] [facility] [place] [address] [employer] Internal Medicine 02/09/24 Head Baker Relationship Specialty Start Date End Date Velvet Palacio MD [address] [facility] [place] [address] PCP - General Internal Medicine 08/15/22 Dali Rice APRN.PLATE FILLER [address] [facility] [place] [address] [employer] Internal Medicine 02/09/24 Head Baker Relationship Specialty Start Date End Date Velvet Palacio MD [address] [place] [address] PCP - General Internal Medicine 08/15/22 Dali Rice APRN.PLATE FILLER [address] [facility] [place] [address] [employer] [facility] Internal Medicine 02/09/24 Head Baker Relationship Specialty Start Date End Date Velvet Palacio MD [address] [facility] [place] [address] PCP - General Internal Medicine 08/15/22 Dali Rice APRN.PLATE FILLER [address] [facility] [place] [address] [employer] [facility] Internal Medicine 02/09/24 Head Baker Relationship Specialty Start Date End Date Velvet Palacio MD [address] [place] [address] PCP - General Internal Medicine 08/15/22 Dali Rice APRN.PLATE FILLER [address] [facility] [place] [address] [employer] Internal Medicine 02/09/24 Head Baker Relationship Specialty Start Date End Date Velvet Palacio MD [address] [place] [address] PCP - General Internal Medicine 08/15/22 Dali Rice APRN.PLATE FILLER [address] [facility] [place] [address] [employer] [facility] Internal Medicine 02/09/24 Head Baker Relationship Specialty Start Date End Date Velvet Palacio MD [address] [place] [address] PCP - General Internal Medicine 08/15/22 Dali Rice APRN.PLATE FILLER [address] [facility] [place] [address] [employer] Internal Medicine 02/09/24 Head Baker Relationship Specialty Start Date End Date Velvet Palacio MD [address] [place] [address] PCP - General Internal Medicine 08/15/22 Dali Rice APRN.PLATE FILLER [address] [facility] [place] [address] [employer] Internal Medicine 02/09/24 Head Baker Relationship Specialty Start Date End Date Velvet Palacio MD [address] [facility] [place] [address] PCP - General Internal Medicine 08/15/22 Dali Rice APRN.PLATE FILLER [address] [facility] [place] [address] [employer] Internal Medicine 02/09/24 Team Status: Active Member Role Status Dates DALI RICE CARPET BINDER-C Primary Care Provider Active Team Status: Inactive Member Role Status Dates DALI RICE CARPET BINDER-C Primary Care Provider Active St art: March 30, 2024 End: March 30, 2024 Dr. Lux Hurley MD Attending Provider Active Start: March 30, 2024 End: March 30, 2024 Dr. Lux Hurley MD Referring Provider Active Start: March 30, 2024 End: March 30, 2024 Team Status: Inactive Member Role Status Dates DALI RICE CARPET BINDER-C Primary Care Provider Active St art: May 01, 2024 End: May 03, 2024 Dr. Anival Mejía DO Emergency Provider Active Start: May 01, 2024 End: May 03, 2024 Dr. Trey Joe DO Admit Provider Active Star t: May 01, 2024 End: May 03, 2024 Dr. Trey Joe DO Other Provider Active Star t: May 01, 2024 End: May 03, 2024 Dr. Himanshu Aldana MD Attending Provider Active Start: May 01, 2024 End: May 03, 2024 Dr. Himanshu Aldana MD Referring Provider Active Start: May 01, 2024 End: May 03, 2024 Team Status: Active Member Role Status Dates DALI RICE CARPET BINDER-C Primary Care Provider Active St art: May 01, 2024 Dr. Anival Mejía , Emergency Provider Active Start: May 01, 2024 Dr. Trey Joe DO Admit Provider Active Star t: May 01, 2024 Dr. Trey Joe DO Attending Provider Active Start: May 01, 2024 Dr. Trey Joe DO Other Provider Active Star t: May 01, 2024 Team Status: Active Member Role Status Luciano RICE CARPET BINDER-C Primary Care Provider Active St art: May 02, 2024 Dr. Anival Mejía , Emergency Provider Active Start: May 02, 2024 Dr. Trey Joe DO Admit Provider Active Star t: May 02, 2024 Dr. Trey Joe DO Other Provider Active Star t: May 02, 2024 Dr. Himanshu Aldana MD Attending Provider Active Start: May 02, 2024 Dr. Himanshu Aldana MD Other Provider Active St art: May 02, 2024 Team Status: Active Member Role Status Luciano RICE CARPET BINDER-C Primary Care Provider Active St art: May 03, 2024 Dr. Anival Mejía DO Emergency Provider Active Start: May 03, 2024 Dr. Trey Joe DO Admit Provider Active Star t: May 03, 2024 Dr. Trey Joe DO Other Provider Active Star t: May 03, 2024 Dr. Himanshu Aldana MD Attending Provider Active Start: May 03, 2024 Dr. Himanshu Aldana MD Other Provider Active St art: May 03, 2024 Team Status: Active Member Role Status Luciano RICE CARPET BINDER-C Primary Care Provider Active St art: July 26, 2024 Dr. Alisa Guaman DO Emergency Provider Active Start: July 26, 2024 Dr. Trey Joe DO Admit Provider Active Star t: July 26, 2024 Dr. Trey Joe DO Attending Provider Active Start: July 26, 2024 Team Status: Active Member Role Status Luciano RICE CARPET BINDER-C Primary Care Provider Active St art: July 26, 2024 Dr. Alisa Guaman , Emergency Provider Active Start: July 26, 2024 Dr. Trey Joe DO Attending Provider Active Start: July 26, 2024 Head Baker Relationship Specialty Start Date End Date Velvet Palacio MD [address] [place] [address] PCP - General Internal Medicine 08/15/22 Dali Rice APRN.CNP [address] [place] [address] [employer] [facility] Internal Medicine 02/09/24 Goals (unrecognized section and content) Goals may be documented in a n alternate sectionGoals may be documented in an alternate section FOR RECORDS PERTAINING TO PATIENTS WHO ARE OR HAVE BEEN ENROLLED IN A CHEMICAL DEPENDENCY/SUBSTANCEABUSE PROGRAM, SOME INFORMATION MAY BE OMITTED. This clinical summary was aggregated from multiple sources. Caution should be exercised in using it in the provision of clinical care. This summary normalizes information from multiple sources, and as a consequence, information in this document may materially change the coding, format and clinical context of patient data. In addition, data may be omitted in some cases. CLINICAL DECISIONS SHOULD BE BASED ON THE PRIMARY CLINICAL RECORDS. [employer] [facility]. provides no warranty or guarantee of the accuracy or completeness of information in this document.
[2024-08-06 04:37] LABS: Absolute Lymphocyte Count 1.67 X10^3/uL (0.83-4.51); Absolute Neutrophil Count 8.8 X10^3/uL (2.0-7.7); Basophil# 0.05 X10^3/uL; Basophil% 0.4 % (0-1); Eosinophil# 0.48 X10^3/uL; Eosinophils% 3.9 % (0-5); Hematocrit 24.8 % (37-47); Lymphocyte # 1.67 X10^3/ul (0.83-4.51); Lymphocyte % 13.6 % (19-41); Mean Corp Hgb Conc 32.3 g/dL (32-36); Mean Corpuscular Hgb 29.2 pg (27.0-32.0); Mean Corpuscular Volume 90.5 fL (81-99); Mean Platelet Vol. 10.3 fl (6.2-12.0); Monocyte# 0.96 X10^3/uL; Monocyte% 7.8 % (0-10); NRBC Flagged by Analyzer 0 % (0-5); Neutrophil # 8.75 X10^3/uL (2.7-7.7); Neutrophil % 71.6 % (47-70); Platelet Count 336 K/mm3 (150-450); RBC Distribution Width CV 14.4 % (11.6-14.6); RBC Distribution Width SD 47.2 fl (35.1-43.9); Red Blood Count 2.74 M/mm3 (4.2-5.4); White Blood Count 12.2 K/mm3 (4.4-11.0)
[2024-08-06 04:44] VITALS: BP 154/103; PULSE 101; RESP 22; O2SAT 95
--- NOTE | 2024-08-06 04:55 | RAD_ITS ---
PROCEDURE: ABDOMEN SINGLE VIEW (PORTABLE) 08/06/2024 REASON FOR EXAM: ABD DISTENTION WITH PREVIOUS SBO TECHNIQUE: Frontal views of the abdomen. COMPARISON: Small bowel series on 07/28/2024 FINDINGS: Borderline dilated loops of air-filled small bowel measuring up to 3 cm in diameter. There is a prominent loop of air-filled bowel in the midline abdomen measuring 8.2 cm in diameter. There is radiodense contents present within loops of bowel in the right lower quadrant of the abdomen and pelvis. Osseous structures are unremarkable for age. RAD/Abdomen Single View (Portable) IMPRESSION: Prominent air-filled loops of bowel, similar to prior and with differential inc luding obstruction versus ileus. There are radiodense contents present within loops of bowel in the pelvis, possibly repre senting oral contrast in the rectum from the small-bowel follow-through performed on 07/28/2024, in which case a complete ob struction is less likely. Consider CT for further evaluation. Reading Location: [facility]
[2024-08-06 05:00] VITALS: BP 173/101; PULSE 101; RESP 27; O2SAT 96
[2024-08-06 05:28] LABS: AST(SGOT) 20 U/L (<=31); Alanine Aminotransfer ALT/SGPT 17 U/L (<=34); Albumin, Serum 2.8 g/dL (3.4-4.8); Alkaline Phosphatase 80 U/L (35-104); Ammonia 13.6 umol/L (11-51); Anion Gap 12 (5-15); BUN 16 mg/dL (4-19); BUN/Creat Ratio 13.2 RATIO (10-20); Bilirubin, Direct 0.18 mg/dL (0.00-0.30); Carbon Dioxide 27.3 mmol/L (21.0-32.0); Chloride 102 mmol/L (98-108); Creatinine, Serum 1.19 mg/dL (0.70-1.20); EST Glomerular Filtration Rate 51 (>60); Estimated Creatinine Clearance 43.28 ml/min (50-250); Globulin 3.1 g/dL (2.2-4.2); Glucose 143 mg/dL (70-99); Lipase 32 U/L (13-75); Protein, Total 5.9 g/dL (5.9-8.4); Sodium Level 141 mmol/L (133-145); Total Bilirubin 0.32 mg/dL (0.00-1.30)
[2024-08-06 05:29] LABS: Alcohol, Blood (Medical)-Serum < 10.1 mg/dL (<=10.0)
[2024-08-06 06:00] VITALS: BP 143/83; PULSE 100; RESP 22; O2SAT 96
--- NOTE | 2024-08-06 06:11 | ED.RN ---
This nurse and RICARDO Edward attempted to walk pt to the restroom. Pt was able to walk roughly 20feet in department before pt became to weak and stated I think I need to be admitted again. Pt assisted x2 into wheelchair and into the bathroom. Pt was unable to remove urine soaked attends and pants. Pt was total dependant for getting dressed. Pt assisted back into bed x2 RN. Pt expressing concern that she does not want to go to the assisted and wants to be readmitted to the hospital. Pt SO pulled this nurse to the hallway and expressing concerns of pt taking care of herself at home and managing Meds at home. He expressed he thinks pt has been mixing meds that she is not suppose to and she just does not want to get better. SO expressed he is not able to care for her much at home and expressed safety concerns. SO stating he needed to go home for now and requested to be updated on plan when able. This nurse updated Dr. Lopez.
[2024-08-06 06:26] LABS: Amphetamine Urine NEGATIVE (<1000 ng/mL); Barbiturate Urine NEGATIVE (< 200 ng/mL); Benzodiazepine Urine NEGATIVE (< 200 ng/mL); Buprenorphine Urine NEGATIVE (< 200 ng/mL); Cocaine Urine NEGATIVE (< 300 ng/mL); Fentanyl, Urine NEGATIVE; Methadone Urine NEGATIVE (< 300 ng/mL); Opiates Urine PRESUMPTIVE POSITIVE (< 300 ng/mL); Oxycodone, Urine NEGATIVE (< 100 ng/mL); PCP Urine NEGATIVE (< 25 ng/mL); THC Urine NEGATIVE (< 50 ng/mL)
[2024-08-06 06:58] VITALS: BP 158/80; PULSE 101; RESP 22; TEMP 37.1; O2SAT 97
--- NOTE | 2024-08-06 07:01 | EX.ED.DYSGE1 ---
HPI History of Present Illness Chief Complaint: Alt LOC Informant: patient, spouse/S.O. and EMS Narrative Narrative: Patient is a 63-year-old female with past medical history of hypertension bipolar disorder and COPD. She was recently admitted to the hospital for 11 days secondary to a small bowel obstruction and MRSA bacteremia. She returned home roughly 24 hours ago. According to /significant other she has just been sitting on the couch with increased fatigue and difficulty ambulating. This evening he found her slumped over and minimally responsive. He states that there were multiple pill bottles and he believes that this was secondary to the medications. However as she is having difficulty with ambulation and her mental status was diminished he felt he would need reevaluated and therefore EMS was called to bring her in for evaluation Patient arrived to the ER slightly lethargic but awakes to voice. She does admit to taking all of her medication this evening which includes trazodone amitriptyline bupropion and Flexeril. She denies any alcohol or illicit drug. [facility] Medical History CHF (congestive heart failure) Anxiety Depression Kidney disease GERD (gastroesophageal reflux disease) Former smoker On home oxygen therapy Irregular heart beat Myocardial infarct Migraines Fibromyalgia NSTEMI (non-ST elevated myocardial infarction) Hypertension Rheumatoid arthritis Bipolar 1 disorder COPD (chronic obstructive pulmonary disease) COPD (chronic obstructive pulmonary disease) Home Medications ?Medication ?Instructions ?Recorded ?Last Taken ?Type albuterol sulfate 90 mcg/actuation 2 puff inhalation Q4H PRN PRN Sob 07/26/14 06/06/17 History aerosol inhaler (ProAir HFA) &/Or Wheezing nitroglycerin 0.4 mg sublingual 0.4 mg sublingual PRN PRN CHEST 06/04/17 Unknown History tablet PAIN amitriptyline 100 mg tablet 150 mg PO QHS depresssion 10/10/22 04/30/24 History meloxicam 7.5 mg tablet 15 mg PO DAILY pain 10/10/22 04/30/24 History sumatriptan succinate 50 mg tablet 50 mg PO PRN PRN migraine headache 10/10/22 04/30/24 History ondansetron 4 mg disintegrating 4 mg PO Q8H PRN PRN Nausea #14 tabs 11/14/22 Unknown Rx tablet atorvastatin 40 mg tablet 40 mg PO QHS Cholesterol 05/11/23 04/30/24 History dexlansoprazole 60 mg 60 mg PO DAILY GERD 05/11/23 Unknown History capsule,biphase delayed release escitalopram oxalate 20 mg tablet 20 mg PO DAILY depression 05/11/23 04/30/24 History hydroxyzine HCl 50 mg tablet 50 mg PO TID PRN Anxiety 05/11/23 04/30/24 History pregabalin 25 mg capsule 150 mg PO BID Nerve pain 05/11/23 04/30/24 History tizanidine 4 mg tablet 4 mg PO Q8H PRN PRN muscle spasm 05/11/23 04/30/24 History acetaminophen 325 mg tablet 1,000 mg (3.0769 x 325 mg) PO Q8H 05/20/23 Unknown Rx PRN PRN fever/pain 1-10 #0 tabs lisinopril 40 mg tablet 40 mg PO DAILY blood pressure 06/04/23 04/30/24 History potassium chloride 20 mEq 20 meq PO DAILYCM diuretic use #30 06/06/23 04/30/24 Rx tablet,extended release(part/cryst) tabs trazodone 50 mg tablet 50 mg PO QHS insomnia 05/01/24 Unknown History albuterol sulfate 2.5 mg/3 mL 2.5 mg inhalation Q4H PRN PRN 07/26/24 Unknown History (0.083 %) solution for nebulization wheezing buspirone 10 mg tablet 10 mg PO TID mental health 07/26/24 Unknown History fluticasone 250 mcg-salmeterol 50 1 ea inhalation BID copd 07/26/24 Unknown History mcg/dose blistr powdr for inhalation furosemide 40 mg tablet 40 mg PO DAILY water pill 07/26/24 Unknown History loperamide 2 mg capsule 2 mg PO TID PRN PRN diarrhea 07/26/24 Unknown History vancomycin 500 mg/100 mL in 500 mg IV Q12H 38 days #76 mL 08/04/24 Unknown Rx dextrose 5 % intravenous piggyback Allergy/AdvReac Type Severity Reaction Status Date / Time methotrexate Allergy Other Verified 08/06/24 03:45 nadolol Allergy Unknown Verified 08/06/24 03:45 prochlorperazine Allergy PT UNABLE Verified 08/06/24 03:45 TO RESPOND-NEEDS F/U baclofen AdvReac Other Verified 08/06/24 03:45 lorazepam (From Ativan) AdvReac Nausea Verified 08/06/24 03:45 propranolol AdvReac Other Verified 08/06/24 03:45 Family History Other COPD (chronic obstructive pulmonary disease) Surgical History H/O umbilical hernia repair Social History Smoking Status: Former smoker substance use type: marijuana ROS ROS ED Constitutional Constitutional ED: Denies chills or fever(s) Eyes Eyes: Denies blurry vision or change in vision ENT ENT ED: Denies sore throat Cardiovascular Cardiovascular: Denies chest pain, palpitations or racing heartbeat Respiratory/Chest Respiratory/Chest: Denies cough or dyspnea Gastrointestinal Gastrointestinal: Reports other Details: Patient reports abdominal bloating/distention but states this is chronic in nature ; Denies abdominal pain, diarrhea, nausea or vomiting Genitourinary Genitourinary ED: Denies dysuria Musculoskeletal Musculoskeletal: Denies myalgias Integumentary Denies rash Neurologic Neurologic: Reports weakness; Denies headache(s) Psychiatric Psychiatric: Denies suicidal ideation or suicidal thoughts Hematologic/Lymphatic Hematologic/Lymphatic: Denies easy bleeding or easy bruising EXAM Physical Exam Const Vital Signs: 08/06/24 03:44 08/06/24 04:44 08/06/24 05:00 Temperature 99.2 F H Temperature Source Oral Pulse Rate 103 H 101 H 101 H Respiratory Rate 19 H 22 H 27 H Blood Pressure 144/90 H 154/103 H 173/101 H Blood Pressure Mean 108 120 125 Pulse Ox 94 95 96 Oxygen Delivery Method Nasal Cannula Nasal Cannula Nasal Cannula Oxygen Flow Rate (L/min) 2 08/06/24 06:00 08/06/24 06:58 Temperature 98.7 F Temperature Source Pulse Rate 100 101 H Respiratory Rate 22 H 22 H Blood Pressure 143/83 H 158/80 H Blood Pressure Mean 103 106 Pulse Ox 96 97 Oxygen Delivery Method Nasal Cannula Oxygen Flow Rate (L/min) 2 Positive well nourished, well developed and obese General Appearance ED: well developed; Negative for pallor Nutritional Appearance: obese HEENT HEENT Narrative: Normocephalic atraumatic No signs of depressed or basilar skull fracture Mucous membranes are dry and tacky without airway edema or compromise No secondary findings in the posterior pharynx to suggest infection Eyes PERRL and EOMs intact bilaterally General Eye ED: Negative for scleral icterus Neck supple and no JVD Neck Narrative: No nuchal rigidity or meningeal signs noted Resp normal respiratory effort and clear to auscultation bilaterally Resp Narrative: Breath sounds are diminished throughout with faint rhonchi noted in the bilateral bases No nasal flaring retractions tachypnea or accessory muscle use Cardio regular rate and regular rhythm Rate: other Other Details: Heart is regular rate and rhythm Radial and carotid pulses are equal and symmetric GI non-tender and no masses GI Narrative: Abdomen is soft but mildly distended. Bowel sounds are hypoactive. There is no pain with palpation. No pulsatile mass or fluid wave. No peritoneal signs. Slight increased tympany diffusely. Patient states that this is her baseline abdominal appearance Auscultation: hypoactive bowel sounds Palpation: soft Extremity Extremity Narrative: Pelvis is stable there is no shortening or external rotation either lower extremity There is +1 pitting edema to bilateral lower extremities that is equal and symmetric Negative Homans' sign bilaterally Patient has a PICC line in place in the left upper arm without secondary findings to suggest infection Neuro oriented x3 and CN's II-XII intact bilaterally Neuro Narrative: GCS of 14; patient is slightly obtunded but will wake to voice Cranial nerves II through XII are grossly intact without focal neurologic deficit Patient does have mild generalized weakness. No focal finding Sensorium / Orientation: alert Psych mental status grossly normal Psych Narrative: Patient denies any homicidal or suicidal ideation Skin no rashes or lesions noted and no wounds General Skin Exam: Negative for jaundice or pallor MDM MDM MDM Narrative Medical decision making narrative: Patient arrived to the ER mildly hypertensive but overall with stable vitals and in no acute distress. She was slightly obtunded with a GCS of 14 but would awake to voice and respond appropriately. She does not have focal neurologic findings going against acute CVA. Her previous inpatient record was reviewed. Also her medications were evaluated and she is on multiple medications that would cause fatigue/sedation and the patient does admit to taking those. She states she did not take them in an overdose fashion and she denies any illicit drug use or alcohol use. Her history and exam indicates most likely polypharmacy leading to her change in mental status. However in order to ensure she is not having worsening infection and acute kidney injury hepatic encephalopathy drug overdose or alcohol intoxication as the cause I did elect to repeat basic laboratory studies. She had a recent small bowel obstruction and therefore KUB was ordered. The KUB was similar in appearance to her recent small bowel follow-through. The patient states her abdomen is always distended she is not having bouts of vomiting and she does state that she has been passing gas and having bowel movements which goes against a SBO. I did discuss with the patient having a repeat CT scan of her abdomen based on her exam recent obstruction and questionable KUB. The patient states that as her abdominal distention is at baseline and she is not having symptoms she does not want further CT scans performed. The blood work was very similar to her previous labs from day of discharge going against worsening infection JOSE electrolyte abnormality or acute blood loss anemia. The patient was able to ambulate with a walker which he uses at home but she was still very weak. I informed the patient that I feel her best method of care would be admission to a rehab center or detention for the next 2 to 4 weeks so she can regain strength. The patient states that she is unwilling to go to rehab or detention. At this time she is awake alert and competent to make this decision. As she is not showing signs for readmission such as sepsis JOSE electrolyte abnormality or acute blood loss anemia and she is unwilling to go to an extended care facility I cannot force her to go to the rehab/detention center and I do not have grounds for admission to the hospital and therefore the patient will ultimately be discharged home and strongly advised to consider return to the ER/hospital if she changes her mind about placement History & Record Review Discussion w/independent historian: Patient and Significant other Lab Data Attestation: I reviewed the patient's lab results. Labs: Laboratory Results - last 24 hr 08/06/24 08/06/24 04:23 06:00 WBC 12.2 H RBC 2.74 L Hgb 8.0 L Hct 24.8 L MCV 90.5 MCH 29.2 MCHC 32.3 RDW Std Deviation 47.2 H RDW Coeff of Alejandra 14.4 Plt Count 336 MPV 10.3 Immature Gran % (Auto) 2.700 H Neut % (Auto) 71.6 H Lymph % (Auto) 13.6 L [place] % (Auto) 7.8 Eos % (Auto) 3.9 Baso % (Auto) 0.4 Absolute Neuts (auto) 8.8 H Absolute Lymphs (auto) 1.67 Nucleated RBC % 0 Sodium 141 Potassium 3.0 L Chloride 102 Carbon Dioxide 27.3 Anion Gap 12 BUN 16 Creatinine 1.19 Estim Creat Clear Calc 43.28 L Est GFR (MDRD) Non-Af 51 L BUN/Creatinine Ratio 13.2 Glucose 143 H Lactic Acid 1.0 Calcium 8.0 Total Bilirubin 0.32 Direct Bilirubin 0.18 AST 20 ALT 17 Alkaline Phosphatase 80 Ammonia 13.6 Total Protein 5.9 Albumin 2.8 L Globulin 3.1 Lipase 32 Urine Opiates Screen PRESUMPTIVE POSITIVE U Buprenorphine Qual NEGATIVE Ur Oxycodone Screen NEGATIVE Urine Methadone Screen NEGATIVE Urine Fentanyl Screen NEGATIVE Ur Barbiturates Screen NEGATIVE Ur Phencyclidine Scrn NEGATIVE Ur Amphetamines Screen NEGATIVE U Benzodiazepines Scrn NEGATIVE Urine Cocaine Screen NEGATIVE U Cannabinoids Screen NEGATIVE Ethyl Alcohol < 10.1 Radiography Diagnostic Testing: Clinical Impression(s) from Imaging Studies KUB X-Ray 08/06/24 04:55 IMPRESSION: Prominent air-filled loops of bowel, similar to prior and with differential including obstruction versus ileus. There are radiodense contents present within loops of bowel in the pelvis, possibly representing oral contrast in the rectum from the small-bowel follow-through performed on 07/28/2024, in which case a complete obstruction is less likely. Consider CT for further evaluation. Reading Location: [id number] KUB as interpreted by the emergency medicine physician reveals air-filled loops of bowel with contrast present in the lower intestine and rectum most likely from the recent small bowel follow-through exam. No perforation or free air noted. Discharge Plan Triage Chief Complaint: Alt LOC ED Provider: Pito Lopez Dx/Rx/DC Orders Clinical Impression: Generalized weakness, Polypharmacy, Bipolar disorder, COPD (chronic obstructive pulmonary disease), Chronic anemia, HTN (hypertension) Instructions: ED Weakness Uncertain Cause Prescriptions: No Action albuterol sulfate [ProAir HFA] 1 PUFF inhaler 2 puff inhalation Q4H PRN PRN (Reason: Sob &/Or Wheezing) nitroglycerin 0.4 MG tablet, sublingual 0.4 mg sublingual PRN PRN (Reason: CHEST PAIN) ondansetron 4 mg tablet,disintegrating 4 mg PO Q8H PRN PRN (Reason: Nausea) Qty: 14 0RF amitriptyline 100 mg tablet 150 mg PO QHS sumatriptan succinate 50 mg tablet 50 mg PO PRN PRN (Reason: migraine headache) meloxicam 7.5 mg tablet 15 mg PO DAILY Patient Comments: TAKE ONE TABLET BY MOUTH DAILY AT 9AM escitalopram oxalate 20 mg tablet 20 mg PO DAILY tizanidine 4 mg tablet 4 mg PO Q8H PRN PRN (Reason: muscle spasm) atorvastatin 40 mg tablet 40 mg PO QHS dexlansoprazole 60 mg capsule,biphase delayed releas 60 mg PO DAILY hydroxyzine HCl 50 mg tablet 50 mg PO TID PRN (Reason: Anxiety) pregabalin 25 mg capsule 150 mg PO BID acetaminophen 325 mg Tablet 1,000 mg PO Q8H PRN PRN (Reason: fever/pain 1-10) Qty: 0 0RF lisinopril 40 mg tablet 40 mg PO DAILY potassium chloride 20 mEq Tablet,Er Particles/Crystals 20 meq PO DAILYCM Qty: 30 0RF trazodone 50 mg tablet 50 mg PO QHS albuterol sulfate 2.5 mg /3 mL (0.083 %) solution for nebulization 2.5 mg inhalation Q4H PRN PRN (Reason: wheezing) buspirone 10 mg tablet 10 mg PO TID fluticasone propion-salmeterol 250-50 mcg/dose blister with device 1 ea INHALATION BID loperamide 2 mg capsule 2 mg PO TID PRN PRN (Reason: diarrhea) furosemide 40 mg tablet 40 mg PO DAILY Patient Comments: pt states she had some, but does online rx; unclear last dose vancomycin in dextrose 5 % 500 mg/100 mL Piggyback 500 mg IV Q12H 38 Days Qty: 76 0RF Rx Instructions: stop date 09/11/24. Weekly bmp, cbc, and vanc trough. Fax to [phone]. Routine picc care per protocol. Dx: MRSA endocarditis. Primary Care Provider: DALI FRAGOSO Referrals: DALI FRAGOSO [facility] [Primary Care Provider] - Activity Restrictions/Additional Instructions: Your workup is very similar to when you were discharged from the hospital. Your weakness is related to your prolonged stay in the hospital with deconditioning as well as the fact you take multiple medications that can cause drowsiness and weakness. I do feel that you would benefit from a short stay in rehab or detention in order to regain your strength. However as you are refusing to be placed in 1 of these facilities I have no choice but to discharge you home. If you change your mind about potential placement or have further concerns please return to the ER for repeat evaluation Print Language: Upper Sorbian Disposition Disposition: Home, Self Care Discharge Date/Time: 08/06/24 06:58
== END 2024-08-06 06:58 | disposition home or self-care (01) ==
PROVIDERS: Emergency Provider Emergency Medicine; PCP Nurse Practitioner; Visit Provider Emergency Medicine
DX: R53.1 Weakness (principal); F31.9 Bipolar disorder, unspecified; J44.9 Chronic obstructive pulmonary disease, unspecified; I10 Essential (primary) hypertension; D64.9 Anemia, unspecified; E66.9 Obesity, unspecified; Z68.35 Body mass index [BMI] 35.0-35.9, adult; Z79.899 Other long term (current) drug therapy; Z87.891 Personal history of nicotine dependence
CPT/HCPCS: 74018; 80048; 80076; 80307; 82077; 82140; 83605; 83690; 85025; 99284; A4216

== ENCOUNTER 2024-08-14 09:56 | Outpatient (CLI) | payer MEDICARE, MEDICAID, SELFPAY ==
[2024-08-14 10:17] VITALS: BP 164/101; PULSE 76; RESP 16; TEMP 35.8; O2SAT 95; BMI 29.8
[2024-08-14] MEDS: Alteplase 2 MG/2 ML Vial IV (10:51)
[2024-08-14 11:38] LABS: Hematocrit 24.5 % (37-47); Hemoglobin 7.7 g/dL (12.0-15.0); Mean Corp Hgb Conc 31.4 g/dL (32-36); Mean Corpuscular Hgb 28.5 pg (27.0-32.0); Mean Corpuscular Volume 90.7 fL (81-99); Mean Platelet Vol. 9.3 fl (6.2-12.0); Platelet Count 338 K/mm3 (150-450); RBC Distribution Width CV 14.3 % (11.6-14.6); White Blood Count 8.9 K/mm3 (4.4-11.0)
[2024-08-14 11:50] LABS: Erythrocyte Sedimentation Rate 35 mm/hr (0-30)
[2024-08-14 12:08] LABS: Anion Gap 12 (5-15); BUN 21 mg/dL (4-19); BUN/Creat Ratio 13.6 RATIO (10-20); Calcium,Total 8.1 mg/dL (7.6-11.0); Carbon Dioxide 30.6 mmol/L (21.0-32.0); Chloride 103 mmol/L (98-108); Creatinine, Serum 1.54 mg/dL (0.70-1.20); EST Glomerular Filtration Rate 38 (>60); Estimated Creatinine Clearance 30.89 ml/min (50-250); Glucose 95 mg/dL (70-99); Potassium 3.3 mmol/L (3.3-5.1); Sodium Level 146 mmol/L (133-145); Vancomycin, Trough Level 20.8 ug/mL (5.0-15.0)
== END 2024-08-14 23:59 | disposition home or self-care (01) ==
LOC: MEDOUTP 09:58
PROVIDERS: PCP Nurse Practitioner; Referring Provider Internal Medicine Infectious Disease; Visit Provider Internal Medicine Infectious Disease
DX: Z51.81 Encounter for therapeutic drug level monitoring (principal)
CPT/HCPCS: 36592; 36593; 80048; 80202; 85027; 85652; J2997; A4216

== ENCOUNTER 2024-08-17 12:45 | Inpatient (IN) | payer MEDICARE, MEDICAID, SELFPAY ==
[2024-08-17] VITALS (21 sets, daily range): BP systolic 94–203; BP diastolic 72–141; PULSE 79–127; RESP 10–34; TEMP 36.3–36.9; O2SAT 86–100; BMI 32.6; BMI 30.7
--- NOTE | 2024-08-17 14:05 | EX.ED.DYSGE1 ---
HPI History of Present Illness Chief Complaint: Hypertension Informant: patient and family Onset/Context/Timing Onset: Days Context: Gradual Onset Timing: Waxes and wanes Quality: Dizziness Location: Generalized Worsened by: Standing Relieved by: Nothing Narrative Narrative: Patient presents with elevated blood pressure that was noticed today. Patient states her home health nurse referred to the emergency department because of an elevated blood pressure. Patient also states her home health nurse told her that she may need some IV fluids. Patient states her blood pressure has been waxing and waning over the past few days. Patient states she feels dizzy when she stands up. Patient denies any chest pain or shortness of breath. Patient denies any nausea or vomiting. Patient denies any fevers or chills. [facility] Medical History Smoking greater than 20 pack years Fibromyalgia Rheumatoid arthritis HTN (hypertension) Bipolar disorder CHF (congestive heart failure) Anxiety Depression Kidney disease GERD (gastroesophageal reflux disease) Former smoker On home oxygen therapy Irregular heart beat Myocardial infarct Migraines Fibromyalgia NSTEMI (non-ST elevated myocardial infarction) Hypertension Rheumatoid arthritis Bipolar 1 disorder COPD (chronic obstructive pulmonary disease) COPD (chronic obstructive pulmonary disease) Home Medications ?Medication ?Instructions ?Recorded ?Last Taken ?Type albuterol sulfate 90 mcg/actuation 2 puff inhalation Q4H PRN PRN Sob 07/26/14 06/06/17 History aerosol inhaler (ProAir HFA) &/Or Wheezing nitroglycerin 0.4 mg sublingual 0.4 mg sublingual PRN PRN CHEST 06/04/17 Unknown History tablet PAIN meloxicam 7.5 mg tablet 15 mg PO DAILY pain 10/10/22 04/30/24 History sumatriptan succinate 50 mg tablet 50 mg PO PRN PRN migraine headache 10/10/22 04/30/24 History ondansetron 4 mg disintegrating 4 mg PO Q8H PRN PRN Nausea #14 tabs 11/14/22 Unknown Rx tablet atorvastatin 40 mg tablet 40 mg PO QHS Cholesterol 05/11/23 04/30/24 History dexlansoprazole 60 mg 60 mg PO DAILY GERD 05/11/23 Unknown History capsule,biphase delayed release escitalopram oxalate 20 mg tablet 20 mg PO DAILY depression 05/11/23 04/30/24 History pregabalin 25 mg capsule 150 mg PO BID Nerve pain 05/11/23 04/30/24 History tizanidine 4 mg tablet 4 mg PO Q8H PRN PRN muscle spasm 05/11/23 04/30/24 History acetaminophen 325 mg tablet 1,000 mg (3.0769 x 325 mg) PO Q8H 05/20/23 Unknown Rx PRN PRN fever/pain 1-10 #0 tabs lisinopril 40 mg tablet 40 mg PO DAILY blood pressure 06/04/23 04/30/24 History potassium chloride 20 mEq 20 meq PO DAILYCM diuretic use #30 06/06/23 04/30/24 Rx tablet,extended release(part/cryst) tabs trazodone 50 mg tablet 50 mg PO QHS insomnia 05/01/24 Unknown History albuterol sulfate 2.5 mg/3 mL 2.5 mg inhalation Q4H PRN PRN 07/26/24 Unknown History (0.083 %) solution for nebulization wheezing buspirone 10 mg tablet 10 mg PO TID mental health 07/26/24 Unknown History fluticasone 250 mcg-salmeterol 50 1 ea inhalation BID copd 07/26/24 Unknown History mcg/dose blistr powdr for inhalation furosemide 40 mg tablet 40 mg PO DAILY water pill 07/26/24 Unknown History loperamide 2 mg capsule 2 mg PO TID PRN PRN diarrhea 07/26/24 Unknown History vancomycin 500 mg/100 mL in 500 mg IV Q12H 38 days #76 mL 08/04/24 Unknown Rx dextrose 5 % intravenous piggyback amitriptyline 100 mg tablet 100 mg PO QHS 08/17/24 Unknown History pantoprazole 40 mg tablet,delayed 40 mg PO DAILY 08/17/24 Unknown History release pregabalin 150 mg capsule 150 mg PO BID 08/17/24 Unknown History Allergy/AdvReac Type Severity Reaction Status Date / Time methotrexate Allergy Other Verified 08/14/24 10:14 nadolol Allergy Unknown Verified 08/14/24 10:14 prochlorperazine Allergy PT UNABLE Verified 08/14/24 10:14 TO RESPOND-NEEDS F/U baclofen AdvReac Other Verified 08/14/24 10:14 lorazepam (From Ativan) AdvReac Nausea Verified 08/14/24 10:14 propranolol AdvReac Other Verified 08/14/24 10:14 Family History Other COPD (chronic obstructive pulmonary disease) Surgical History H/O umbilical hernia repair Social History Smoking Status: Former smoker substance use type: marijuana ROS ROS ED Constitutional Constitutional ED: Denies chills or fever(s) Eyes Eyes: Denies blurry vision or change in vision ENT ENT ED: Denies rhinorrhea or sore throat Cardiovascular Cardiovascular: Denies chest pain or palpitations Respiratory/Chest Respiratory/Chest: Denies cough or dyspnea Gastrointestinal Gastrointestinal: Denies nausea or vomiting Genitourinary Genitourinary ED: Denies dysuria or hematuria Musculoskeletal Musculoskeletal: Reports back pain, myalgias and neck pain Integumentary Denies abscess or rash Neurologic Neurologic: Reports headache(s); Denies weakness Allergic/Immunologic Allergic/Immunologic ED: Denies mouth swelling or urticaria EXAM Physical Exam Const Vital Signs: 08/17/24 12:45 08/17/24 12:45 08/17/24 13:49 Temperature 98.5 F 98.4 F Temperature Source Oral Oral Pulse Rate 79 84 Respiratory Rate 20 H 13 Respiratory Effort Respiratory Pattern Blood Pressure 169/104 H 203/111 H Blood Pressure Mean 125 141 Pulse Ox 89 92 99 Oxygen Delivery Method Nasal Cannula Nasal Cannula Nasal Cannula Oxygen Flow Rate (L/min) 3 4 4 Fraction of Inspired Oxygen (FIO2) 08/17/24 14:00 08/17/24 14:13 08/17/24 14:45 Temperature 98.4 F Temperature Source Oral Pulse Rate 81 79 Respiratory Rate 17 14 Respiratory Effort Short of Breath Respiratory Pattern Normal Blood Pressure 203/111 H 179/100 H Blood Pressure Mean 141 126 Pulse Ox 98 97 Oxygen Delivery Method Nasal Cannula Nasal Cannula Oxygen Flow Rate (L/min) 4 4 Fraction of Inspired Oxygen (FIO2) 08/17/24 15:00 08/17/24 15:51 08/17/24 15:51 Temperature 98.1 F Temperature Source Oral Pulse Rate 86 127 H Respiratory Rate 19 H 27 H Respiratory Effort Respiratory Pattern Blood Pressure 190/109 H Blood Pressure Mean 136 Pulse Ox 99 86 Oxygen Delivery Method Nasal Cannula Nasal Cannula Oxygen Flow Rate (L/min) 4 6 Fraction of Inspired Oxygen (FIO2) 08/17/24 16:00 08/17/24 16:00 08/17/24 17:00 Temperature 97.6 F L 97.6 F L Temperature Source Temporal Temporal Pulse Rate 116 H 122 H 99 Respiratory Rate 24 H 34 H 20 H Respiratory Effort Respiratory Pattern Blood Pressure 180/116 H 165/105 H Blood Pressure Mean 137 125 Pulse Ox 96 94 92 Oxygen Delivery Method Bi-pap Bi-pap Oxygen Flow Rate (L/min) Fraction of Inspired Oxygen (FIO2) 35 08/17/24 18:00 Temperature 97.6 F L Temperature Source Temporal Pulse Rate 103 H Respiratory Rate 20 H Respiratory Effort Respiratory Pattern Blood Pressure 193/112 H Blood Pressure Mean 139 Pulse Ox 93 Oxygen Delivery Method Bi-pap Oxygen Flow Rate (L/min) Fraction of Inspired Oxygen (FIO2) Positive well nourished and well developed General Appearance ED: well developed and NAD HEENT Reports moist mucous membranes Neck supple and no JVD Resp normal respiratory effort Auscultation: diminished lung sounds bilateral Cardio regular rate and regular rhythm GI non-tender and non-distended Palpation: soft Neuro oriented x3, CN's II-XII intact bilaterally and no sensory deficits noted Sensorium / Orientation: alert Motor Exam: strength 5/5 throughout Psych mental status grossly normal MDM MDM MDM Narrative Medical decision making narrative: Differential diagnosis includes hypertensive urgency, hypertensive emergency, uncontrolled hypertension, cardiac dysrhythmia, cardiac ischemia, electrolyte abnormality, pneumonia, bronchitis, congestive heart failure, and COPD exacerbation. EKG will be obtained to assess for cardiac dysrhythmia and cardiac ischemia. Chest x-ray will be obtained to assess for pneumonia, bronchitis, and congestive heart failure. CBC will be obtained to assess for leukocytosis and anemia. Basic metabolic profile will be obtained to assess for electrolyte abnormality and renal function. High-sensitivity troponin will be obtained to assess for cardiac ischemia. 2-hour repeat high-sensitivity troponin will be obtained to assess for ongoing cardiac ischemia. BNP will be obtained to assess for congestive heart failure. History & Record Review Additional record(s) reviewed:: Prior inpatient record, Prior outpatient record, Prior ED visit and Prior labs Lab Data Attestation: I reviewed the patient's lab results. Lab results narrative: CBC was reviewed. There is an anemia with a hemoglobin of 7.6 and hematocrit of 40.2. These are slightly decreased from previous results. Basic metabolic profile was reviewed. BUN was 20 and creatinine was 1.41. This is consistent with previous results. Initial troponin slightly elevated at 28. 2-hour repeat troponin was reviewed and was 29. proBNP was reviewed and was elevated at 3456. This was increased from previous result. Labs: Laboratory Results - last 24 hr 08/17/24 08/17/24 14:55 17:05 WBC 6.5 RBC 2.65 L Hgb 7.6 L Hct 24.2 L MCV 91.3 MCH 28.7 MCHC 31.4 L RDW Std Deviation 48.1 H RDW Coeff of Alejandra 14.6 Plt Count 292 MPV 9.5 Immature Gran % (Auto) 0.500 Neut % (Auto) 60.1 Lymph % (Auto) 26.4 Andrew % (Auto) 8.2 Eos % (Auto) 3.9 Baso % (Auto) 0.9 Absolute Neuts (auto) 3.9 Absolute Lymphs (auto) 1.70 Nucleated RBC % 0 Sodium 145 Potassium 3.7 Chloride 103 Carbon Dioxide 30.5 Anion Gap 11 BUN 20 H Creatinine 1.41 H Estim Creat Clear Calc 35.27 L Est GFR (MDRD) Non-Af 42 L BUN/Creatinine Ratio 14.3 Glucose 91 Calcium 8.1 Troponin T High Sens 28 H D Troponin T Hi Sens 2 Hr 29 H NT pro BNP II 3456 H ABG Data Attestation: I personally reviewed and interpreted this ABG as follows: Interpretation: Venous blood gas was reviewed. pH is normal at 7.406. pCO2 was 60.8, PO2 was 55.5, bicarb was 38.3, and O2 sat was 87.5% on venous blood gas. ABG results: ABG 08/17/24 15:29 Specimen Type [place] Sample Site Not entered VBG pH 7.41 VBG pO2 56 H VBG HCO3 38 H VBG Total CO2 40 H VBG O2 Sat (Calc) 88 H VBG Base Excess 14 H POC Mix VBG pCO2 Pt Tmp 60.8 H O2 Delivery Device Not entered Radiography Chest X-Ray - ED: 2 View, Read by ED Physician, Read by Radiologist and CHF Diagnostic Testing: Clinical Impression(s) from Imaging Studies Chest X-Ray 08/17/24 14:33 IMPRESSION: Vascular congestion and CHF with atelectasis and/or scarring at the lung bases. Reading Location: [facility] PA and lateral chest x-ray was obtained. There are 2 views. On my independent interpretation, lung tobias show congestive heart failure and vascular congestion. There is normal cardiac silhouette. Bony thorax is normal. Radiologist also interpreted the x-ray and agrees. EKG Initial EKG: Attestation: I personally reviewed and interpreted this EKG as follows: Interpretation: Sinus Rhythm (80) and No Acute Injury Pattern Comments: EKG was obtained. On my independent interpretation, it showed a normal sinus rhythm with a rate of 80. MT and QRS intervals were normal. QTc interval was minimally prolonged at 482 ms. Millen was normal. There are no acute ST or T wave changes. Prior EKG tracings: available for review Prior: Unchanged (08/01/2024) Management Discussion w/another healthcare provider: Hospitalist Treatment and Re-Evaluation :: Patient became more short of breath. Patient was given a DuoNeb aerosol. Patient was started on BiPAP. Patient was given Lasix and nitroglycerin paste. Patient is still having some shortness of breath. Patient was advised of the need for hospitalization. Patient is agreeable with this. Case was discussed with the hospitalist. He recommended starting the patient on nicardipine drip. This was ordered. He will admit the patient to ICU. Patient and family understood and were agreeable with the plan. All questions were answered. Critical Care Time Critical Care Time: Yes Critical care time (excluding procedures): 30-74 minutes (33), Including time spent:, Discussing w/Patient &/or Family/Solar Sales Advisor, Discussing w/Consultants, Arranging Admission or Transfer and Performing Direct Patient Care at Bedside Discharge Plan Dx/Rx/DC Orders Clinical Impression: Congestive heart failure (CHF), Hypoxia, Hypertensive emergency Disposition Disposition: [email or web address] Discharge Date/Time: 08/17/24 19:36
--- NOTE | 2024-08-17 14:33 | RAD_ITS ---
PROCEDURE: CHEST PA AND LATERAL 08/17/2024 REASON FOR EXAM: DYSPNEA TECHNIQUE: CHEST PA AND LATERAL COMPARISON: Prior study dated July 29, 2024. FINDINGS: Hardware: EKG electrodes are seen. A left-sided PICC line catheter is in-situ with the tip in the right atrium. Heart: Mild cardiomegaly. Mediastinum: The mediastinal contour is unremarkable. Lungs: Vascular congestion and CHF superimposed on atelectasis and/or scarring at the lung bases. There has been progression as compared to prior study. Bones: Degenerative changes are identified within the thoracic spine. RAD/Chest PA and Lateral IMPRESSION: Vascular congestion and CHF with atelectasis and/or scarring at the lung bases. Reading Location: [place] [id number]
--- NOTE | 2024-08-17 14:33 | EKG12_ITS ---
Test Reason : SOB Blood Pressure : */* mmHG Vent. Rate : 80 BPM Atrial Rate : 80 BPM P-R Int : 134 ms QRS Dur : 68 ms QT Int : 418 ms P-R-T Axes : 52 58 57 degrees QTcB Int : 482 ms Normal sinus rhythm QTcB >= 480 msec Abnormal ECG Confirmed by ISABELLE BELLAMY MD ([id number]), managing editor NELSON RICKS ([id number]) on 08/18/2024 10:52:14 AM Referred By: Marlon Marks Confirmed By: ISABELLE BELLAMY MD
[2024-08-17 15:15] LABS: Absolute Neutrophil Count 3.9 X10^3/uL (2.0-7.7); Basophil# 0.06 X10^3/uL; Basophil% 0.9 % (0-1); Eosinophil# 0.25 X10^3/uL; Eosinophils% 3.9 % (0-5); Hematocrit 24.2 % (37-47); Hemoglobin 7.6 g/dL (12.0-15.0); Lymphocyte % 26.4 % (19-41); Mean Corp Hgb Conc 31.4 g/dL (32-36); Mean Corpuscular Hgb 28.7 pg (27.0-32.0); Mean Corpuscular Volume 91.3 fL (81-99); Mean Platelet Vol. 9.5 fl (6.2-12.0); Monocyte# 0.53 X10^3/uL; Monocyte% 8.2 % (0-10); NRBC Flagged by Analyzer 0 % (0-5); Neutrophil # 3.88 X10^3/uL (2.7-7.7); Neutrophil % 60.1 % (47-70); Platelet Count 292 K/mm3 (150-450); RBC Distribution Width CV 14.6 % (11.6-14.6); RBC Distribution Width SD 48.1 fl (35.1-43.9); Red Blood Count 2.65 M/mm3 (4.2-5.4); White Blood Count 6.5 K/mm3 (4.4-11.0)
[2024-08-17] MEDS: hydrALAZINE 20 MG/ML Vial 10 MG IV (15:22)
--- NOTE | 2024-08-17 15:28 | CPS ---
ABG stick attempted x 1. Patient jumped and refused another stick. Discussed with Dr Mendoza, he is agreeable to run VBG instead.
[2024-08-17 15:33] LABS: Blood Gas Specimen Type VEN; O2 Delivery Device Not entered; SITE Not entered; VBG BASE EXCESS 14 mmol/L (-1.0-3.5); VBG Bicarbonate 38 mmol/L (22-26); VBG PO2 56 mmHg (25-40); VBG SO2 88 % (50-70); VBG TCO2 40 mmol/L (23-33); VBG pCO2 60.8 mmHg (41-51); VBG pH 7.41 (7.32-7.42)
--- NOTE | 2024-08-17 15:33 | ED.RN ---
Dr. Mendoza notified of pts O2 of 80% on 6L NC. Request made for breathing treatments.
[2024-08-17] MEDS: Ipratropium/Albuterol Sulfate 3 ML AMPUL.NEB INHALATION (15:51)
--- NOTE | 2024-08-17 16:00 | ED.RN ---
post breathing tx. sats remains mid 80s. pt struggling to breath. respiratory setting pt up from bipap
--- NOTE | 2024-08-17 16:01 | ED.RN ---
pt suddenly desated. sats staying low to mid 80s. arching back to breath, struggling. pt also anxious. ls diminished anterior, few crackles posterior, audible wheezing. dr melendez notified and breathing treatements ordered.
[2024-08-17 16:05] LABS: Anion Gap 11 (5-15); BUN 20 mg/dL (4-19); BUN/Creat Ratio 14.3 RATIO (10-20); Calcium,Total 8.1 mg/dL (7.6-11.0); Carbon Dioxide 30.5 mmol/L (21.0-32.0); Chloride 103 mmol/L (98-108); Creatinine, Serum 1.41 mg/dL (0.70-1.20); EST Glomerular Filtration Rate 42 (>60); Estimated Creatinine Clearance 35.27 ml/min (50-250); Glucose 91 mg/dL (70-99); Potassium 3.7 mmol/L (3.3-5.1); Sodium Level 145 mmol/L (133-145)
[2024-08-17 16:13] LABS: Pro- Brain NATRIURETIC PEPTIDE 3456 pg/mL (<=900)
[2024-08-17 16:28] LABS: Troponin T High Sensitivity 28 ng/L (<=14)
[2024-08-17] MEDS: Furosemide 40 MG/4 ML Vial IV (16:59)
[2024-08-17] MEDS: Nitroglycerin Oint 1 INCH PACKET TD (17:01)
[2024-08-17 17:38] LABS: Troponin T High Sens 2 HR 29 ng/L (<=14)
--- NOTE | 2024-08-17 18:20 | PCM.HP.STD ---
HPI - General General Date of Admission: 08/17/24 Date of Service: 08/17/24 Chief Complaint: Elevated BP readings HPI Narrative TOMI DIA, is a 63 F who presented to [facility] ED on 08/17/2024 with elevated BP readings. Patient was recently hospitalized here from 07/26-08/05 for small bowel obstruction and MRSA bacteremia. SBO resolved without need for surgery. Unclear source for MRSA; TTE was negative but JENNIFER was declined by patient. Was discharged home with home health care on 6 weeks of IV vancomycin. Home health care noted that patient has had blood pressures running high over the past few days. Today they noted it was in the 180s to 190 systolic and patient was reporting some dizziness, so she was sent in for further evaluation. On arrival to the ED BP was in the 200s over 110s. Chest x-ray showed vascular congestion and CHF. BNP elevated at 3400. She was given doses of IV Lasix, IV hydralazine and Nitropaste. However, her blood pressure remained high at that time and she developed worsening shortness of breath with hypoxia. ABG showed pH 7.4 and was unremarkable, but due to increased work of breathing patient was placed on BiPAP. She had improvement in work of breathing on BiPAP. Given these findings, hospitalist was contacted for admission. I saw the patient at bedside in the ED, present. Patient was breathing comfortably on BiPAP at rest and mentating appropriately. She was reporting a headache but denied any chest pain currently. Stated her shortness of breath was improving on BiPAP. Denied any vision changes. No other acute concerns currently. Patient was initiated on nicardipine drip for hypertensive emergency and will be admitted to the ICU for further management. [facility] Medical History Smoking greater than 20 pack years Fibromyalgia Rheumatoid arthritis HTN (hypertension) Bipolar disorder CHF (congestive heart failure) Anxiety Depression Kidney disease GERD (gastroesophageal reflux disease) Former smoker On home oxygen therapy Irregular heart beat Myocardial infarct Migraines Fibromyalgia NSTEMI (non-ST elevated myocardial infarction) Hypertension Rheumatoid arthritis Bipolar 1 disorder COPD (chronic obstructive pulmonary disease) COPD (chronic obstructive pulmonary disease) Home Medications ?Medication ?Instructions ?Recorded ?Last Taken ?Type albuterol sulfate 90 mcg/actuation 2 puff inhalation Q4H PRN PRN Sob 07/26/14 06/06/17 History aerosol inhaler (ProAir HFA) &/Or Wheezing nitroglycerin 0.4 mg sublingual 0.4 mg sublingual PRN PRN CHEST 06/04/17 Unknown History tablet PAIN meloxicam 7.5 mg tablet 15 mg PO DAILY pain 10/10/22 04/30/24 History sumatriptan succinate 50 mg tablet 50 mg PO PRN PRN migraine headache 10/10/22 04/30/24 History ondansetron 4 mg disintegrating 4 mg PO Q8H PRN PRN Nausea #14 tabs 11/14/22 Unknown Rx tablet atorvastatin 40 mg tablet 40 mg PO QHS Cholesterol 05/11/23 04/30/24 History dexlansoprazole 60 mg 60 mg PO DAILY GERD 05/11/23 Unknown History capsule,biphase delayed release escitalopram oxalate 20 mg tablet 20 mg PO DAILY depression 05/11/23 04/30/24 History tizanidine 4 mg tablet 4 mg PO Q8H PRN PRN muscle spasm 05/11/23 04/30/24 History acetaminophen 325 mg tablet 1,000 mg (3.0769 x 325 mg) PO Q8H 05/20/23 Unknown Rx PRN PRN fever/pain 1-10 #0 tabs lisinopril 40 mg tablet 40 mg PO DAILY blood pressure 06/04/23 04/30/24 History potassium chloride 20 mEq 20 meq PO DAILYCM diuretic use #30 06/06/23 04/30/24 Rx tablet,extended release(part/cryst) tabs trazodone 50 mg tablet 50 mg PO QHS insomnia 05/01/24 Unknown History albuterol sulfate 2.5 mg/3 mL 2.5 mg inhalation Q4H PRN PRN 07/26/24 Unknown History (0.083 %) solution for nebulization wheezing buspirone 10 mg tablet 10 mg PO TID mental health 07/26/24 Unknown History fluticasone 250 mcg-salmeterol 50 1 ea inhalation BID copd 07/26/24 Unknown History mcg/dose blistr powdr for inhalation furosemide 40 mg tablet 40 mg PO DAILY water pill 07/26/24 Unknown History loperamide 2 mg capsule 2 mg PO TID PRN PRN diarrhea 07/26/24 Unknown History vancomycin 500 mg/100 mL in 500 mg IV Q12H 38 days #76 mL 08/04/24 Unknown Rx dextrose 5 % intravenous piggyback pantoprazole 40 mg tablet,delayed 40 mg PO DAILY 08/17/24 Unknown History release pregabalin 150 mg capsule 150 mg PO BID 08/17/24 Unknown History Allergy/AdvReac Type Severity Reaction Status Date / Time methotrexate Allergy Other Verified 08/14/24 10:14 nadolol Allergy Unknown Verified 08/14/24 10:14 prochlorperazine Allergy PT UNABLE Verified 08/14/24 10:14 TO RESPOND-NEEDS F/U baclofen AdvReac Other Verified 08/14/24 10:14 lorazepam (From Ativan) AdvReac Nausea Verified 08/14/24 10:14 propranolol AdvReac Other Verified 08/14/24 10:14 Family History Other COPD (chronic obstructive pulmonary disease) Surgical History H/O umbilical hernia repair Social History Smoking Status: Former smoker substance use type: marijuana ROS Constitutional Constitutional: Reports fatigue; Denies chills, fever(s) or weakness Eyes Eyes: Denies change in vision ENT HEENT: Reports headache(s) Cardiovascular Cardiovascular: Reports lightheadedness; Denies chest pain, edema or palpitations Respiratory/Chest Respiratory/Chest: Reports shortness of breath at rest and shortness of breath with exertion; Denies cough, productive cough or wheezing Gastrointestinal Gastrointestinal: Denies abdominal pain Genitourinary Genitourinary: Denies dysuria Musculoskeletal Musculoskeletal: Denies arthralgias or myalgias Neurologic Neurologic: Reports dizziness and headache(s); Denies focal weakness, numbness or tingling Vital Signs Vital Signs Vital Signs: 08/17/24 12:45 08/17/24 12:45 08/17/24 13:49 Temperature 98.5 F 98.4 F Temperature Source Oral Oral Pulse Rate 79 84 Respiratory Rate 20 H 13 Respiratory Effort Respiratory Pattern Blood Pressure 169/104 H 203/111 H Blood Pressure Mean 125 141 Pulse Ox 89 92 99 Oxygen Delivery Method Nasal Cannula Nasal Cannula Nasal Cannula Oxygen Flow Rate (L/min) 3 4 4 Fraction of Inspired Oxygen (FIO2) 08/17/24 14:00 08/17/24 14:13 08/17/24 14:45 Temperature 98.4 F Temperature Source Oral Pulse Rate 81 79 Respiratory Rate 17 14 Respiratory Effort Short of Breath Respiratory Pattern Normal Blood Pressure 203/111 H 179/100 H Blood Pressure Mean 141 126 Pulse Ox 98 97 Oxygen Delivery Method Nasal Cannula Nasal Cannula Oxygen Flow Rate (L/min) 4 4 Fraction of Inspired Oxygen (FIO2) 08/17/24 15:00 08/17/24 15:51 08/17/24 15:51 Temperature 98.1 F Temperature Source Oral Pulse Rate 86 127 H Respiratory Rate 19 H 27 H Respiratory Effort Respiratory Pattern Blood Pressure 190/109 H Blood Pressure Mean 136 Pulse Ox 99 86 Oxygen Delivery Method Nasal Cannula Nasal Cannula Oxygen Flow Rate (L/min) 4 6 Fraction of Inspired Oxygen (FIO2) 08/17/24 16:00 08/17/24 16:00 08/17/24 17:00 Temperature 97.6 F L 97.6 F L Temperature Source Temporal Temporal Pulse Rate 116 H 122 H 99 Respiratory Rate 24 H 34 H 20 H Respiratory Effort Respiratory Pattern Blood Pressure 180/116 H 165/105 H Blood Pressure Mean 137 125 Pulse Ox 96 94 92 Oxygen Delivery Method Bi-pap Bi-pap Oxygen Flow Rate (L/min) Fraction of Inspired Oxygen (FIO2) 35 08/17/24 18:00 Temperature 97.6 F L Temperature Source Temporal Pulse Rate 103 H Respiratory Rate 20 H Respiratory Effort Respiratory Pattern Blood Pressure 193/112 H Blood Pressure Mean 139 Pulse Ox 93 Oxygen Delivery Method Bi-pap Oxygen Flow Rate (L/min) Fraction of Inspired Oxygen (FIO2) Weight Weight: 68.5 kg Body Mass Index (BMI) 32.6 Physical Exam Const alert, oriented x3 and no apparent distress Constitutional Narrative: Upper middle-aged female, appears older than stated age, class I obesity, mildly fatigued appearing but otherwise sitting back comfortably in bed, breathing comfortably on BiPAP, answering questions with short appropriate responses, in no acute distress. General Appearance: cooperative and comfortable HEENT normocephalic, head/scalp atraumatic, hearing grossly normal bilaterally, nasal mucous membranes and turbinates normal and moist oral mucous membranes Eyes PERRL, EOMs intact bilaterally and conjunctivae normal Neck full ROM Chest inspection of chest normal Resp normal respiratory effort and no use of accessory muscles Resp Narrative: Breathing comfortably on BiPAP at rest. Mild crackles noted throughout particularly in lung bases. Otherwise good air movement throughout with no wheezing noted. Cardio regular rate, regular rhythm, no murmurs and peripheral pulses 2+ throughout GI normal to inspection, nondistended, normoactive bowel sounds, soft to palpation, non-tender and non-distended Back/Spine normal ROM Extremity normal to inspection, full ROM and no pedal edema Skin no rashes or lesions noted Psych mental status grossly normal Results Lab / Micro Data 08/17/24 14:55 08/17/24 14:55 Labs: Laboratory Results - last 24 hr 08/17/24 14:55: WBC 6.5, RBC 2.65 L, Hgb 7.6 L, Hct 24.2 L, MCV 91.3, MCH 28.7, MCHC 31.4 L, RDW Std Deviation 48.1 H, RDW Coeff of Alejandra 14.6, Plt Count 292, MPV 9.5, Immature Gran % (Auto) 0.500, Neut % (Auto) 60.1, Lymph % (Auto) 26.4, Elk % (Auto) 8.2, Eos % (Auto) 3.9, Baso % (Auto) 0.9, Absolute Neuts (auto) 3.9, Absolute Lymphs (auto) 1.70, Nucleated RBC % 0, Sodium 145, Potassium 3.7, Chloride 103, Carbon Dioxide 30.5, Anion Gap 11, BUN 20 H, Creatinine 1.41 H, Estim Creat Clear Calc 35.27 L, Est GFR (MDRD) Non-Af 42 L, BUN/Creatinine Ratio 14.3, Glucose 91, Calcium 8.1, Troponin T High Sens 28 H D, NT pro BNP II 3456 H 08/17/24 17:05: Troponin T Hi Sens 2 Hr 29 H ABG Data ABG results: ABG 08/17/24 15:29 Specimen Type [place] Sample Site Not entered VBG pH 7.41 VBG pO2 56 H VBG HCO3 38 H VBG Total CO2 40 H VBG O2 Sat (Calc) 88 H VBG Base Excess 14 H POC Mix VBG pCO2 Pt Tmp 60.8 H O2 Delivery Device Not entered Imaging Radiology Impression Chest X-Ray 08/17/24 14:33 IMPRESSION: Vascular congestion and CHF with atelectasis and/or scarring at the lung bases. [facility] Assessment & Plan Assessment/Plan (1) Hypertensive emergency: (2) Acute on chronic heart failure with preserved ejection fraction (HFpEF): PLAN: Plan Patient is a 63-year-old female who presented to [facility] ED on 08/17/2024 with elevated BP readings. 1. Hypertensive emergency with acute on chronic HFpEF and acute hypoxic respiratory failure ? Admit under inpatient status to ICU. Presented with BP in the 200s over 110s. Had worsening hypoxia with pulmonary edema and increased work of breathing noticed along with headache secondary to severe hypertension. BNP elevated. Troponins elevated presumed due to demand ischemia from hypertensive urgency. Unclear etiology at this time. Treating with nicardipine drip for now, wean off as able. Given dose of IV Lasix in the ED with significant urine output. Okay to continue home Lasix and lisinopril. Can consider adding beta-castro or alternative agents as needed. Not on home oxygen, hypoxic on admit requiring BiPAP. Wean supplemental oxygen as able. 2. Mild creatinine elevation ? Creatinine 1.41 on admit. Baseline appears to be around 1.1-1.2. Suspect secondary to hypertensive emergency as above. Treatment as above. Monitor daily BMP and urine output. 3. Recent MRSA bacteremia ? See discharge from 08/05 for further details. In short, no clear source for MRSA bacteremia but blood cultures have cleared. Being treated with 6 weeks of IV vancomycin with stop date on 09/11. Continue IV vancomycin while here. 4. Acute on chronic debility ? PT/OT/case management consulted. Discharged home with home health care on previous admission, suspect she will be okay for that on this discharge as well. Appreciate therapy recommendations. Chronic medical conditions: ? Class I obesity: BMI 30 on admit. Complicates hospital course, care and prognosis. ? Hypertension, hyperlipidemia: Continue home statin. Blood pressure management as noted above. ? Anxiety/depression: Continue home BuSpar and escitalopram. ? COPD: Not in acute exacerbation. Continue home inhalers. ? GERD: Continue home PPI. DVT prophylaxis: Heparin subcu CODE STATUS: Full code, verified Expected disposition: TBD Total clinical time spent by myself addressing the patient's medical issues, reviewing all the data, and collaborating with patient's care team: 75 minutes. Charges/Coding Visit Charges Inpatient E&M: 02832 Init Hosp L3
[2024-08-17] MEDS: NICARdipine 25 MG in 0.9% Normal Saline (250mL Bag) 240 ML 50 MG CONT INF (19:18)
[2024-08-17 19:26] LABS: Blood Gas Specimen Type VEN; Comment 12. 6.; O2 Delivery Device Not entered; SITE Not entered; VBG BASE EXCESS 10 mmol/L (-1.0-3.5); VBG Bicarbonate 34 mmol/L (22-26); VBG PO2 36 mmHg (25-40); VBG SO2 73 % (50-70); VBG TCO2 35 mmol/L (23-33); VBG pCO2 44.5 mmHg (41-51); VBG pH 7.49 (7.32-7.42)
[2024-08-17] MEDS: Morphine 4 MG/ML Syringe IV (19:31)
[2024-08-17 20:31] LABS: Troponin T High Sens 4 HR 66 ng/L (<=14)
--- NOTE | 2024-08-17 20:47 | CASEMGMT ---
Social Work Last assessment was completed less than 30 days ago. SW confirmed with patients SO that all information remains accurate. SO also confirmed that patient has been receiving all services that were set during last discharge. No further needs identified at this time. Emy Crockett, LEAD DESIGNER, [employer] LOCATION MANAGER
[2024-08-17] MEDS: Pregabalin 75 MG Capsule 150 MG PO (21:20)
[2024-08-17] MEDS: busPIRone 5 MG Tablet 10 MG PO (21:20)
[2024-08-17] MEDS: traZODone 50 MG Tablet PO (21:20)
[2024-08-17] MEDS: Atorvastatin Calcium 40 MG Tablet PO (21:20)
[2024-08-17] MEDS: 0.9% Saline Lock 10 ML Syringe IV (21:23)
[2024-08-17] MEDS: Heparin Injection (Vial) 5,000 UNIT/ML VIAL 5000 UNIT SC (22:06)
--- OUTSIDE RECORDS SUMMARY | 2024-08-17 23:36 | XMS RPT_ITS | CCD ---
Author Organization [facility] Care Team Providers Care 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 Name Role Phone SEBAS MOLINA Unavailable Unavailable SEBAS MOLINA Unavailable Unavailable Nakita Miller Unavailable Unavailable Nakita Miller Unavailable Unavailable NO REFERRING DR Unavailable Unavailable ERNESTO GOSS Unavailable Unavailable ERNESTO GOSS Unavailable Unavailable IMCA Unavailable Unavailable ERNESTO GOSS Unavailable Unavailable ERNESTO GOSS Unavailable Unavailable IMCA Unavailable Unavailable ANKIT HATCH Unavailable Unavailable ANKIT HATCH Unavailable Unavailable DIANA COHN MD Unavailable Unavailable ANKIT HATCH Unavailable Unavailable DIANA COHN MD Unavailable Unavailable PROVIDER, UNKNOWN Unavailable Unavailable PROVIDER, UNKNOWN Unavailable Unavailable ZOIE, GEORGIANA Unavailable Unavailable ZOIE, GEORGIANA Unavailable Unavailable ZOIE, GEORGIANA Unavailable Unavailable ZOIE, GEORGIANA Unavailable Unavailable Hakeem COOK, Velvet Primary Care Provider Kady SILVA, Juan Ricketts Unavailable Unavailkelley Palacio MD, Velvet Primary Care Provider Kady SILVA, Juan Ricketts Unavailable Unavailkelley Chu RN, Hilda Unavailable Hakeem COOK, Velvet Primary Care Provider Kimberley RN, Hilda Unavailable Juan SILVA, Kady Ricketts Unavailable Unavailkelley Chu RN, Hilda Unavailable Joaquin SILVA, Crystal Unavailable Hakeem COOK, Velvet Primary Care Provider Hakeem COOK, Velvet Primary Care Provider Joaquin SILVA, Crystal Unavailable Hakeem COOK, Velvet Primary Care Provider Kimberley SILVA, Hilda Unavailable OLDER, VINYL DIPPER-C DALI Primary Care Provider Dr. Ness Yu Emergency Provider Dr. Himanshu Aldana Admit Provider Unavailable Dr. Himanshu Aldana Attending Provider Unavailab le Jovan, Dr. Downs Other Provider Unavailable Dr. Sid Hillman Attending Provider [phone] Sid Hillman Other Provider Dr. Merrick White Other Provider Dr. Linwood Joe Attending Provider Dr. Linwood Joe Other Provider Dr. Roque Mirza Other Provider [phone] Dr. Chato Jon Other Provider Dr. Kun Willams Other Provider Dr. Domingo Penn Other Provider Dr. Patricia Dyer Other Provider Dr. Frederic Gómez Other Provider Dr. Danielle Miguel Other Provider Dr. North Berry Other Provider Unavailable Dr. Grover Urias Other Provider Dr. Norman Lozano Other Provider Dr. Joel Holguin Other Provider Dr. Rahul Jaimes Other Provider Dr. Kun Willams Attending Provider PHYSICIAN, NONE Attending Unavailable PHYSICIAN, NONE Primary Care Unavailable Dr. Linwood Joe Referring Provider Dr. Zurdo Howard Emergency Provider Dr. Sid Hillman Admit Provider [phone] Dr. Diana Bates Attending Provider Unavailable Dr. Diana Bates Other Provider Unavailable [facility], Dr. De Los Santos Attending Provider Hakeem COOK, Velvet Primary Care Provider Joaquin RN, Crystal Unavailable Hakeem COOK, Velvet Primary Care Provider Juan SILVA, Kady Ricketts Unavailable Unavailabl e Jensen DRAPER, Shelby L Unavailable 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.BULK PLANT AGENT, Dali Unavailable Javad DRAPER, Ines Unavailable PREBISH, NURIS Attending Unavailable OLDER, DALI Referring Unavailable GANTA, VELVET Primary Care Unavailable OLDER, DALI Referring Unavailable GANTA, VELVET Primary Care Unavailable OLDER VINYL DIPPER-C, DALI Primary Care Provider Xavi COOK, Dr. Wasserman Attending Provider Dr. Lux Hurley MD Referring Provider Dr. Anival Mejía DO Emergency Provider Heath MATA, Dr. Yang Admit Provider Dr. Linwood Joe DO Other Provider Jovan COOK, Dr. Downs Attending Provider Juan Ramon Aldana MD, Dr. Downs Referring Provider Dr. Linwood Cardona DO Attending Provider Dr. Himanshu Aldana MD Other Provider Unavailab Dr. Alisa Pineda DO Emergency Provider OLDER VINYL DIPPER-C, DALI Primary Care Provider Frances COOK, Dr. Dolly Hooper Other Provider Rafy COOK, Dr. Lau Other Provider Star COOK, Dr. Vargas Other Provider Kali COOK, Dr. Biggs Other Provider Dr. Merrick White MD Other Provider Kali COOK, Dr. Biggs Attending Provider [phone] Frances COOK, Dr. Dolly Hooper Attending Provider Star COOK, Dr. Vargas Attending Provider Rafy COOK, Dr. Lau Attending Provider John MATA, Dr. Sheldon Emergency Provider Star COOK, Dr. Vargas Other Provider Star COOK, Dr. Vargas Attending Provider Ermias COOK, Dr. Demetri Burrows Attending Provider Rafy COOK, Dr. Lau Referring Provider oJhn MATA, Dr. Sheldon Attending Provider Christopher COOK, Dr. Sin Attending Provider Christopher COOK, Dr. Sin Referring Provider OLDER, DALI Attending Unavailable GANTA, VELVET Primary Care Unavailable OLDER, DALI Attending Unavailable GANTA, VELVET Primary Care Unavailable MOLINA, SEBAS Attending Unavailable MOLINA, SEBAS Referring Unavailable GANTA, VELVET Primary Care Unavailable OLDER, DALI Referring Unavailable GANTA, VELVET Primary Care Unavailable GANTA, VELVET Attending Unavailable GANTA, VELVET Primary Care Unavailable OLDER, DALI Referring Unavailable GANTA, VELVET Primary Care Unavailable GANTA, VELVET Primary Care Unavailable SEBAS MOLINA Attending Unavailable GANTA, VELVET Primary Care Unavailable SELF Referring Unavailable GANTA, VELVET Attending Unavailable GANTA, VELVET Primary Care Unavailable OLDER, DALI Referring Unavailable GANTA, VELVET Primary Care Unavailable OLDER, DALI Attending Unavailable FERNANDEZ, FERNANDO Referring Unavailable GANTA, VELVET Primary Care Unavailable GANTA, VELVET Primary Care Unavailable MARI MARTINEZ Attending Unavailable OLDER, DALI Attending Unavailable GANTA, VELVET Primary Care Unavailable GANTA, VELVET Primary Care Unavailable BOGNER, INES Attending Unavailable MOLINA, SEBAS Referring Unavailable GANTA, VELVET Primary Care Unavailable OLDER, DALI Attending Unavailable GANTA, VELVET Primary Care Unavailable BOGNER, INES Referring Unavailable GANTA, VELVET Primary Care Unavailable OLDER, DALI Referring Unavailable GANTA, VELVET Primary Care Unavailable OLDER, DALI Referring Unavailable GANTA, VELVET Primary Care Unavailable GANTA, VELVET Referring Unavailable GANTA, VELVET Primary Care Unavailable OLDER, DALI Primary Care Unavailable Pito Lopez Attending Unavailable OLDER, DALI Primary Care Unavailable Schwcharli, Linwood Attending Unavailable Jopperi, Linwodo Consulting Unavailable Jopperi, Linwood Attending Unavailable Jopperi, Linwood Admitting Unavailable OLDER, DALI Primary Care Unavailable Koram, Dolly Sandie Consulting Unavailable Rafy, Sid Consulting Unavailable Belal, Farouk Consulting Unavailable Calabretta, Kalyan Consulting Unavailable Christopher, Merrick Consulting Unavailable Jopperi, Linwood Admitting Unavailable Rafy, Sid Attending Unavailable OLDER, DALI Primary Care Unavailable Calabretta, Kalyan Consulting Unavailable Jopperi, Linwood Consulting Unavailable Christopher, Merrick Consulting Unavailable Belal, Farouk Consulting Unavailable Koram, Dolly Sandie Consulting Unavailable Rafy, Sid Consulting Unavailable Koram, Dolly Sandie Attending Unavailable Jopperi, Linwood Consulting Unavailable OLDER, DALI Primary Care Unavailable Aldana, Achintya Attending Unavailable Jopperi, Linwood Admitting Unavailable Aldana, Achintya Consulting Unavailable Christopher, Merrick Attending Unavailable Christopher, Merrick Referring Unavailable OLDER, DALI Primary Care Unavailable Belal, Farouk Attending Unavailable Jopperi, Linwood Attending Unavailable Jopperi, Linwood Attending Unavailable Belal, Farouk Attending Unavailable OLDER, DALI Primary Care Unavailable Zurdo Howard Attending Unavailable OLDER, DALI Primary Care Unavailable Aldana, Achintya Referring Unavailable Jopperi, Linwood Consulting Unavailable Aldana, Achintya Attending Unavailable Jopperi, Linwood Admitting Unavailable OLDER, DALI Primary Care Unavailable OLDER, DALI Primary Care Unavailable IeshaysonLux Referring Unavailable PraysonLux Attending Unavailable Calabretta, Kalyan Attending Unavailable Jopperi, Linwood Attending Unavailable OLDER, DALI Primary Care Unavailable Aldana, Achintya Referring Unavailable Allergies Allergy Classification Reported Allergen(s) Allergy Type Date of Onset Reaction(s) Facility amLODIPine (6 sources) amLODIPine Drug Allergy 06-13-19 24 Other: See Comments [facility] Work Phone: Baclofen (6 sources) Baclofen Drug Allergy 06-05-19 15 Mental Status Change [facility] Benzodiazepines (6 sources) LORazepam Drug Allergy 08-25-19 15 Mental Status Change, Vomiting [facility] Methotrexate (6 sources) Methotrexate Drug Allergy 12-20-19 12 Vomiting [facility] Nadolol (6 sources) Nadolol Drug Allergy 02-06-20 13 Intolerance [facility] Penicillins (antibiotic) (6 sources) Penicillin G Drug Allergy 09-30-19 13 GI Upset [facility] Work Phone: Propranolol (6 sources) Propranolol Drug Allergy 01-31-20 13 Intolerance [facility] Proton Pump Inhibitors (6 sources) Esomeprazole Drug Allergy 07-15-19 16 Other: See Comments [facility] (20 sources) baclofen; Translations: [BACLOFEN] Drug Allergy 06-05-19 15 Mental Status Change [facility] Repository Comment on above: MOOD SWINGS (20 sources) esomeprazole; Translations: [ESOMEPRAZOLE MAGNESIUM] Drug Allergy 07-15-19 16 Other: See Comments [facility] Repository (20 sources) LORazepam; Translations: [LORAZEPAM] Drug Allergy 08-25-19 15 Mental Status Change, Vomiting [facility] Repository (20 sources) methotrexate; Translations: [METHOTREXATE] Drug Allergy 12-20-19 12 Vomiting [facility] Repository (20 sources) nadolol; Translations: [NADOLOL] Drug Allergy 02-06-20 13 Intolerance [facility] Repository (20 sources) penicillin; Translations: [PENICILLIN G] Drug Allergy 09-30-19 13 GI Upset [facility] Repository (20 sources) propranolol; Translations: [PROPRANOLOL] Drug Allergy 01-31-20 13 Intolerance [facility] Repository (4 sources) OTHER; Translations: [OTHER] Propensity to adverse reactions (disorder) 01-20-20 05 AOF [facility] Repository (1 source) acetylcarnitine Drug Allergy [facility] Repository (1 source) esomeprazole Drug Allergy [facility] Repository (1 source) LORazepam Drug Allergy [facility] Repository (1 source) ; Translations: [] Propensity to adverse reactions (disorder) [facility] Repository (20 sources) combid [Other] Propensity to adverse reactions 01-20-20 05 Intolerance [facility] Work Phone: (9 sources) Prochlorperazine Drug Allergy 11-15-19 23 PT UNABLE TO RESPOND-NEEDS F/U [facility] Comment on above: Combid (20 sources) amLODIPine; Translations: [AMLODIPINE] Drug Allergy 06-13-19 Other: See Comments [facility] Work Phone: (1 source) Prochlorperazine Drug Allergy 08-15-19 [facility] Repository Medications Current Medications Medication Drug [...] above: Inhale 2 Puffs as in structed. amLODIPine 2.5 mg oral tablet (11 sources) Dihydropyridine Calcium Channel Mikhail Start: 06-10-19 End: 06-13-19 24 take 1 tablet by mouth once daily [...] tablet (20 sources) HMG-CoA Reductase Inhibitor Start: End: take 1 tablet by mouth at bedtime Atorvastatin 40 mg tablet Active 40 mg PO AT BEDTIME May 11, 2023 1:00am Comment on above: Take 1 tablet by ariela th daily at bedtime. TAKE ONE TABLET BY M OUTH DAILY AT 9PM AT BEDTIME Blood Pressure Monitor (20 sources) Start: Blood Pressure Monitor Indications: Unspecified essential hypertension 1 Each as needed. 1 Kit 05/11/2024 Active busPIRone hydrochloride 10 mg oral tablet (20 sources) Start: End: take 1 tablet by mouth three times [...] tablet 1 08/05/2023 10/05/2023 Discontinued Start: 05-11-2023 End: 08-06-2024 take 2 tablets by mouth three times daily Buspirone 5 mg tablet Discontinued 10 mg PO THREE TIMES A DAY May 11, 2023 1:00am August 06, 2024 3:54am Start: 05-02-2023 End: 08-03-2023 take 1 tablet by mouth three times daily busPIRone (BUSPAR) 5 mg tablet Take 1 tablet by mouth three times a day. 90 tablet 1 05/02/2023 08/03/2023 Discontinued Comment on above: Take 1 tablet by ariela three times a day. cholecalciferol 0.05 mg oral tablet (20 sources) Vitamin D Start: 12-02-19 14 take 2 tablets by mouth once daily Cholecalciferol, Vitamin D3, 2,000 unit tab Take 2 tablets by mouth once daily. 0 12/01/2013 Active Comment on above: Take 2 tablets by mo [facility] once daily. Dexlansoprazole 60 mg capsule,biphase delayed releas (4 sources) Start: 05-11-19 24 take 1 capsule by mouth once [...] Contrast as designated per enteric contrast guidelines Fluticasone Propion-Salmeterol (20 sources) Corticosteroid, beta2-Adrenergic Agonist Start: 07-27-19 25 Fluticasone Propion-Salmeterol 250-50 mcg/dose blister with device [...] instructed twice daily. 60 Each 5 07/10/2021 Active Start: 03-07-2021 End: 07-10-2021 take [...] oral tablet (20 sources) Loop Diuretic Start: 07-26-2024 take 1 tablet by mouth once daily Furosemide 40 mg tablet Active 40 mg PO DAILY July 26, 2024 12:00am Start: 03-09-2024 End: 05-04-2024 take 1 tablet by mouth once daily furosemide (LASIX) 40 mg tablet Indications: Essential hypertension Take 1 tablet by mouth once daily. 90 tablet 3 05/04/2024 Active Start: 10-31-2023 End: 03-07-2024 take 1 tablet by mouth once daily furosemide (LASIX) 40 mg tablet Indications: Essential hypertension TAKE ONE TABLET BY MOUTH DAILY AT 9AM Strength: 40 mg 90 tablet 3 10/31/2023 03/07/2024 Discontinued Start: 06-06-2023 End: 07-26-2024 take 1 tablet by mouth twice daily at mealtime Furosemide 40 mg tablet Discontinued 40 mg PO TWICE DAILY WITH MEALS June 06, 2023 10:59am July 26, 2024 [...] once daily. TAKE ONE TABLET BY M OUTH DAILY AT 9AM ipratropium bromide 0.2 mg/ml inhalation solution (20 [...] Wheezing/Shortness of Breath. Use over 5-15minutes. Dx:J45.40 loperamide hydrochloride 2 mg oral capsule (20 sources) Opioid Agonist Start: take 1 capsule by mouth three times daily as needed for diarrhea Loperamide 2 mg capsule Active 2 mg PO 3 TIMES DAILY NEEDED as needed for diarrhea July 26, 2024 12:00am Start: 03-09-2024 End: 06-17-2024 take 1 capsule by mouth every eight hours as needed loperamide (IMODIUM) 2 mg cap(s) Take 1 capsule by mouth three times a day as needed. 30 capsule 06/17/2024 Active Start: 10-07-2023 End: 03-07-2024 take 1 capsule [...] 05/11/2024 Active Nebulizer and Compressor For Neb (17 sources) Start: 06-19-2024 Nebulizer and Compressor For Neb Indications: Moderate persistent asthma without complication (HCC) , Chronic obstructive pulmonary disease, unspecified COPD type (HCC) 1 each every 4 hours as needed. 1 each 06/19/2024 Active nitroglycerin 0.4 mg sublingual tablet (20 sources) Nitrate Vasodilator Start: 06-04-2017 End: 08-06-2024 Nitroglycerin 0.4 MG tablet, sublingual Active 0.4 [...] tablet (20 sources) Serotonin-3 Receptor Antagonist Start: 11-14-2022 End: 03-07-2024 take 1 tablet by mouth every eight hours as needed for nausea and nausea ondansetron orally disintegrating (ZOFRAN ODT) 4 mg disintegrating tablet Indications: Nausea Take 1 tablet by mouth every 8 hours as needed. 30 tablet 1 03/09/2024 Active Start: 06-04-2017 End: 10-10-2022 take 1 tablet by mouth every eight hours as needed for nausea Ondansetron 4 MG tablet Discontinued 4 mg PO EVERY 8 HOURS NEEDED as needed for Nausea June 04, 2017 12:00am October 10, 2022 4:56am Comment on above: Take 1 tablet by ariela th every 8 hours as needed. OXYGEN, HOME THERAPY, (20 sources) OXYGEN, HOME THE RAPY, 4 L/min by Nasal Cannula route as directed. At night & 4 L/min when mobile Active OXYGEN, HOME THE RAPY, 2 L/min by Nasal Cannula route as directed. At night & 5 L/min when mobile Active pantoprazole 40 mg delayed release oral tablet (5 sources) Proton Pump Inhibitor Start: 08-10-2024 take 1 tablet by mouth once daily pantoprazole DR (PROTONIX) 40 mg tablet Indications: Gastroesophageal reflux disease without esophagitis Take 1 tablet by mouth once daily. 30 tablet 5 08/10/2024 Active microencapsulated potassium chloride 20 meq extended release oral tablet (20 sources) Start: 06-06-2023 End: 01-03-2024 take 1 tablet by mouth once daily at mealtime Potassium Chloride 20 mEq Tablet,Er Particles/Crystals Active 20 meq PO DAILY WITH MEALS June 06, 2023 12:00am Start: 06-04-2017 End: 10-10-2022 Potassium Chloride (Klor-Con M20) 20 MEQ tablet,ER particles/crystals Discontinued 20 meq PO DAILY June 04, 2017 12:00am October 10, 2022 4:56am Comment on above: Take 20 mEq by mouth . pregabalin 150 mg oral capsule (20 sources) Start: 04-02-2024 End: 10-05-2024 take 1 capsule by mouth twice daily [...] on above: Take 1 capsule by mo ut three times daily for 30 days. Take 1 capsule by mo ut three times daily for 180 days. Do not start before August 07, 2021. Take 1 capsule by mo ut three times daily for 180 days. Q8H Take 1 capsule by mo ut two times a day for 60 days. Take 1 capsule by mo [facility] two times a day for 180 days. SUMAtriptan 50 mg oral tablet (20 sources) Serotonin-1b and Serotonin-1d Receptor Agonist Start: 12-07-2021 End: 07-17-2024 Sumatriptan Succinate 50 mg tablet Active 50 mg PO NEEDED as needed for migraine headache October 10, 2022 12:00am Start: 08-01-2021 End: 11-09-2021 take 1 tablet [...] (20 sources) Central alpha-2 Adrenergic Agonist Start: 2 End: take 1 tablet by mouth every eight hours as needed for muscle spasms Tizanidine 4 mg tablet Active 4 mg PO EVERY 8 HOURS NEEDED as needed for muscle spasm May 11, 2023 1:00am Start: 08-24-2021 End: 12-05-2021 take 1 tablet [...] tablet (20 sources) Serotonin Reuptake Inhibitor Start: 10-22-19 End: 06-02-19 25 take 1 tablet by mouth at bedtime Trazodone 50 mg tablet Active 50 mg PO AT BEDTIME May 01, 2024 1:00am 100 ml vancomycin 5 mg/ml injection (3 sources) Glycopeptide Antibacterial Start: 08-05-19 Vancomycin In Dextrose 5 % 500 mg/100 mL Piggyback Active 500 mg IV Q12H 76 38 August 04, 2024 12:00am stop date 09/11/24. Weekly bmp, cbc, and vanc trough. Fax to [phone]. Routine picc care per protocol. Dx: MRSA endocarditis. Completed/Discontinued Medications Medication Drug Class(es) Dates Sig (Normalized) Sig (Original) acetaminophen 325 mg / HYDROcodone bitartrate 5 mg oral tablet (9 sources) Opioid Agonist Start: 11-14-2022 End: 05-11-2023 Hydrocodone-Acetami nophen 5-325 mg tablet Discontinued 1 {tbl} PO EVERY 6 HOURS NEEDED as needed for Pain 10 November 14, 2022 May 11, 2023 3:25pm Start: 11-14-2022 End: 05-11-2023 take 1 tablet by mouth every six hours as needed Hydrocodone-Acetaminophen Discontinued 1 TABLET PO EVERY 6 HOURS NEEDED 10 November 14, 2022 May 11, 2023 3:25pm acetaminophen 325 mg / oxyCODONE hydrochloride 5 mg oral tablet (4 sources) Opioid Agonist Start: 09-27-2023 End: 05-01-2024 Oxycodone-Acetaminophen (Percocet) 5-325 mg tablet Discontinued 1 {tbl} PO EVERY 6 HOURS as needed for pain 12 September 27, 2023 May 01, 2024 6:25pm 120 [...] Albuterol Sulfate (Proair Hfa) 1 PUFF inhaler (18 sources) Start: 03-21-2015 End: 05-11-2023 Albuterol Sulfate [...] 2014 12:00am ALPRAZolam 1 mg oral tablet (18 sources) Benzodiazepine Start: 06-04-2017 End: 10-10-2022 take 1 tablet by mouth at bedtime Alprazolam (Xanax) 1 MG tablet Discontinued 1 mg PO AT BEDTIME July 15, 2017 6:03pm October 10, 2022 4:55am amitriptyline hydrochloride 150 mg oral tablet (20 sources) Tricyclic Antidepressant Start: 04-02-2024 End: 08-10-2024 take 1 tablet by mouth once daily at bedtime amitriptyline 150 mg tablet Take 1 tablet by mouth daily at bedtime. 30 tablet 11 04/02/2024 08/10/2024 Discontinued Start: 10-10-2022 End: 08-14-2024 Amitriptyline 100 mg tablet Discontinued 150 mg PO AT BEDTIME October 10, 2022 12:00am August 14, 2024 10:15am Start: 01-03-2022 End: 10-22-2023 take 1 tablet [...] tablet by ariela th daily at bedtime. amoxicillin 875 mg / clavulanate 125 mg oral tablet (20 sources) Penicillin-class Antibacterial Start: End: take 1 tablet by mouth every twelve hours amoxicillin-clavulan ate potassium (AUGMENTIN) 875-125 mg per tablet Take [...] 1 {tbl} PO TWICE A DAY May 20, 2023 12:00am June 04, 2023 2:58pm Start: 05-20-2023 End: 06-04-2023 take 1 tablet by mouth twice daily Amoxicillin-Pot Clavulanate Discontinued 1 TABLET PO TWICE A DAY May 20, 2023 12:00am June 04, 2023 2:58pm Comment on above: Take 1 tablet by ariela every 12 hours. amphetamine aspartate 5 mg / amphetamine sulfate 5 mg / dextroamphetamine saccharate 5 mg / dextroamphetamine sulfate 5 mg oral tablet (9 sources) Central Nervous System Stimulant Start: End: take 1 tablet by mouth once daily Dextroamphetamine-Am phetamine (Adderall 20 Mg Tablet) 20 MG tablet Discontinued 20 mg PO DAILY July 15, 2017 12:00am October 10, 2022 4:56am aspirin 81 mg chewable tablet (9 sources) Platelet Aggregation Inhibitor, Nonsteroidal Anti-inflammatory Drug [...] Take 1 tablet by ariela once daily. azithromycin 500 mg oral tablet (4 sources) Macrolide Antimicrobial Start: End: take 1 tablet [...] at 0901 cefpodoxime 200 mg oral tablet (9 sources) Cephalosporin Antibacterial Start: 11-14-2022 End: 05-11-2023 [...] on above: Take 1 tablet by ariela twice daily. TAKE ONE TABLET BY [facility] TWICE DAILY @ 9AM & 5PM COMPOUNDED [...] Conserving De vice for Ambulation Home concentrator dexlansoprazole 60 mg delayed release oral capsule (20 sources) Proton Pump Inhibitor Start: 022 End: 025 take 1 capsule by mouth once daily Dexlansoprazole (DEXILANT) 60 mg CpDM TAKE ONE CAPSULE BY MOUTH DAILY AT 9AM 90 capsule 2 05/02/2023 08/10/2024 Discontinued Comment on above: Take 60 mg by mouth once daily. TAKE ONE CAPSULE BY MOUTH DAILY AT 9AM Dexlansoprazole (Dexilant) 60 MG capsule,biphase delayed releas (9 sources) Start: 018 End: 023 take 1 [...] guaiFENesin 600 mg extended release oral tablet (7 sources) Uncompetitive M-vmyugt-X-aspartate Receptor Antagonist, Sigma-1 Agonist Start: 05-20-2023 End: [...] Take 1 tablet by ariela th twice daily as needed (pain/inflammation). Take with food. Apply 2 g to affecte d area four times daily. dicyclomine hydrochloride 10 mg oral capsule (9 sources) Anticholinergic Start: 2014 End: 2015 take [...] 10:44am docusate sodium 100 mg oral capsule (9 sources) Start: 06-04-2017 End: 10-10-2022 take 1 [...] for 10 days. 20 tablet 03/23/2021 04/02/2021 escitalopram 20 mg oral tablet (20 sources) Serotonin Reuptake Inhibitor Start: 11-18-2020 End: 08-05-2024 take 1 tablet by mouth once daily Escitalopram Oxalate (Lexapro) 20 mg tablet Discontinued 20 mg PO DAILY July 26, 2024 12:00am August 05, 2024 12:54pm Comment on above: Take 1 tablet by ariela th once daily. fluticasone propionate 0.05 mg/actuat metered dose nasal spray (20 sources) Corticosteroid Start: 05-11-2023 Fluticasone Propionate Active 2 SPRAY INTRANASAL DAILY May 11, 2023 1:00am Start: 02-05-2023 End: 07-26-2024 Fluticasone Propionate 50 mc g/actuation spray,suspension Discontinued 2 NMA INTRANASAL DAILY May 11, 2023 1:00am July 26, 2024 7:28pm Start: 09-11-2021 End: 02-05-2023 take 2 spray(s) [...] daily. Rinse mouth after use. 1 Each 11 03/07/2021 09/11/2021 Discontinued Start: 03-21-2015 End: 10-10-2022 [...] extended release oral tablet (20 sources) Start: 06-06-19 End: 07-27-19 take 1 tablet by mouth twice daily, then take 1 tablet by mouth every twelve hours Guaifenesin (Mucus Relief Er) 1,200 mg Tablet Extended Release 12hr Discontinued 1200 mg PO TWICE A DAY June 06, 2023 12:00am July 26, 2024 7:23pm Comment on above: Take by mouth. hydrOXYzine hydrochloride 50 mg oral tablet (20 sources) Antihistamine Start: 05-11-19 End: 08-15-19 take 1 tablet by mouth three times daily as needed for anxiety Hydroxyzine Hcl 50 mg tablet Discontinued 50 mg PO THREE TIMES A DAY as needed for Anxiety May 11, 2023 1:00am August 14, 2024 10:15am Start: 10-10-2022 End: 06-04-2023 take 2 tablets [...] June 04, 2023 3:01pm Start: 05-12-2022 End: 08-10-2024 take 1 tablet by mouth every eight hours as needed hydrOXYzine HCl (ATARAX) 50 mg tablet Take 1 tablet by mouth every 8 hours as needed for anxiety. 90 tablet 3 06/29/2024 08/10/2024 Discontinued Start: 01-03-2022 End: 05-10-2022 take 1 tablet [...] on above: Take 2 tablets by mo uth every 8 hours as needed. Take 1 tablet by ariela th every 8 hours as needed for anxiety. hyoscyamine sulfate 0.125 mg sublingual tablet (20 [...] as needed. levoFLOXacin 750 mg oral tablet (9 sources) Quinolone Antimicrobial Start: 06-05-19 End: 06-12-19 [...] Sat02/10/24 at 0901, Until Sat02/10/24 at 0901 lisinopril 20 mg oral tablet (20 sources) Angiotensin Converting Enzyme Inhibitor Start: 10-10-2022 End: 05-20-2023 take 2 tablets by mouth once daily [...] take 1 tablet by mouth once daily Lisinopril 40 mg tablet Active 40 mg PO DAILY June 04, 2023 12:00am Comment on above: Take 1.5 tablets by mouth once daily. TAKE 1 & 1/2 (ONE & ONE-HALF) TABLETS BY MOUTH ONCE DAILY TAKE 1 AND 1/2 TABLE TS BY MOUTH DAILY AT 9AM Take 2 tablets by [facility] once daily. Take [address] [facility] once daily. nitrofurantoin, macrocrystals 25 mg / nitrofurantoin, monohydrate 75 mg oral capsule (9 sources) Nitrofuran Antibacterial Start: End: take 1 capsule by mouth every twelve hours Nitrofurantoin Monohyd/M-Cryst 100 mg capsule Discontinued 100 mg PO EVERY 12 HOURS October 09, 2022 12:00am May 11, 2023 3:26pm omeprazole 20 mg delayed release oral capsule (20 sources) Proton Pump Inhibitor Start: End: take 1 capsule by mouth once daily before breakfast omeprazole (PRILOSEC) 20 mg capsule Take 1 capsule by mouth daily before breakfast. 1/2 hr before meal. 30 capsule 5 01/31/2022 11/11/2022 Discontinued Comment on above: Take 1 capsule by [facility] daily before breakfast. 1/2 hr before meal. predniSONE 20 mg oral tablet (20 sources) Start: End: predniSONE (DELTASONE) 20 mg tablet Please take the pill for 7 days followed by taking half the pill for another 7 days and stop. 12 tablet 05/08/2024 08/10/2024 Discontinued Start: 05-05-2024 End: 07-26-2024 take 2 tablets [...] one table for one week then discontinue sulfamethoxazole 800 mg / trimethoprim 160 mg oral tablet (4 sources) Dihydrofolate Reductase Inhibitor Antibacterial, Sulfonamide Antimicrobial Start: 024 End: 025 Sulfamethoxazole-Tr imethoprim 800-160 mg tablet Discontinued 1 {tbl} PO TWICE A DAY September 27, 2023 12:00am May 01, 2024 9:06pm zolpidem tartrate 5 mg oral tablet (9 sources) gamma-Aminobutyric Acid-ergic Agonist Start: 018 End: 023 take 1 tablet by mouth at bedtime [...] tenderness] Episodic Acute and unspecified renal failure (7 sources) Acute renal failure syndrome; Translations: [Acute kidney failure, unspecified] Onset: 5 07-29-2024 Episodic Acute bronchitis (9 sources) Acute bronchitis with bronchospasm; Translations: [Acute bronchitis, unspecified] 05-15-2018 Episodic Acute myocardial infarction (20 sources) Myocardial infarction; Translations: [Non-ST elevation (NSTEMI) myocardial infarction] Onset: 5 Resolved: 9 05-14-2018 Chronic Adjustment disorders (20 sources) Grief finding; Translations: [Adjustment disorder with depressed mood] Onset: 9 09-22-2018 Chronic Anxiety disorders (20 sources) Anxiety; Translations: [Anxiety disorder, unspecified] Onset: 6 Chronic Asthma (20 sources) Asthma; Translations: [Unspecified asthma, uncomplicated] Onset: 6 04-01-2015 Chronic Bacterial infection; unspecified site (11 sources) Bacteremia due to Methicillin resistant Staphylococcus aureus; Translations: [Bacteremia] Onset: 5 07-31-2024 Episodic Calculus of urinary tract (9 sources) Renal colic; Translations: [Unspecified renal colic] 11-14-2022 Episodic Chronic kidney disease (20 sources) Chronic kidney disease stage 3; Translations: [CKD (chronic kidney disease) stage 3, GFR 30-59 ml/min] Onset: 0 Resolved: 4 04-05-2017 Chronic Chronic kidney disease (2 sources) Chronic kidney disease; Translations: [CKD (chronic kidney disease) stage 3, GFR 30-59 ml/min ([facility])] Onset: 8 Chronic obstructive pulmonary disease and [...] Episodic Deficiency and other anemia (1 source) Chronic anemia; Translations: [Anemia, unspecified] 08-14-2024 Episodic Deficiency and other anemia (1 source) Anemia, unspecified; Translations: [Anemia, unspecified type] Onset: 5 Episodic Disorders of lipid metabolism (20 sources) [...] [Essential (primary) hypertension] Onset: 6 02-27-2021 Chronic Fluid and electrolyte disorders (20 sources) Acute hypokalemia; Translations: [Hypokalemia] Onset: 1 Resolved: 4 10-18-2022 Episodic Headache; including migraine (12 sources) Migraine without aura, not refractory ; Translations: [Migraine without aura, not intractable, without status migrainosus] Onset: 5 Chronic Headache; including migraine (1 source) Headache; Translations: [Headaches] 04-02-2024 Episodic Heart valve disorders (20 sources) Mitral valve regurgitation; Translations: [Nonrheumatic mitral (valve) insufficiency] Onset: 6 02-27-2021 Chronic Intestinal obstruction without hernia (10 sources) Small bowel obstruction; Translations: [Unspecified intestinal obstruction, unspecified as to partial versus complete obstruction] Onset: 5 07-26-2024 Episodic Malaise and fatigue (2 sources) Asthenia; Translations: [Weakness] 08-06-2024 Episodic Mood disorders (20 sources) Recurrent major [...] unspecified; Translations: [Compression deformity of vertebra] Onset: 4 Episodic Other aftercare (2 sources) Post-discharge follow-up; Translations: [Encounter for follow-up examination after completed treatment for conditions other than malignant neoplasm] 05-08-2024 Episodic Other aftercare (2 sources) Polypharmacy ; Translations: [Other residential (current) drug therapy] 08-06-2024 Episodic Other aftercare (1 source) Encounter for follow-up examination after completed treatment for conditions other than malignant neoplasm; Translations: [Hospital discharge follow-up] Onset: 5 Episodic Other aftercare (1 source) Encounter for therapeutic drug level monitoring; Translations: [Encounter for therapeutic drug level monitoring] Onset: 5 Episodic Other connective tissue disease (20 sources) Fibromyalgia; Translations: [Fibromyalgia] Onset: 5 02-27-2021 Episodic Other connective tissue disease (6 sources) [...] serum enzymes] Episodic Other lower respiratory disease (8 sources) Hypoxia; Translations: [Hypoxemia] 05-11-2023 Episodic Other [...] nose] 09-27-2023 Episodic Pleurisy; pneumothorax; pulmonary collapse (7 sources) Pleural effusion; Translations: [Pleural effusion, not elsewhere classified] Onset: 5 08-03-2024 Episodic Residual codes; unclassified (20 sources) Obstructive [...] and signs] 10-08-2022 Episodic Residual codes; unclassified (9 sources) Noncompliance with treatment; Translations: [Noncompliance] 10-18-2022 [...] Other amnesia; Translations: [Memory change] Onset: Episodic Residual codes; unclassified (1 source) Altered mental status, unspecified; Translations: [Altered mental status, unspecified] Onset: Episodic Respiratory failure; insufficiency; arrest (adult) (20 sources) Tesui-ix-dzsrqzf respiratory failure; Translations: [Acute and chronic respiratory failure with hypoxia] Onset: 5 06-04-2023 Chronic Rheumatoid arthritis and related disease (13 sources) Rheumatoid arthritis; Translations: [Rheumatoid arthritis, unspecified] Onset: 5 05-14-2018 Chronic Screening and history of mental health and substance abuse codes (1 source) Ex-cigarette smoker; Translations: [Personal history of nicotine dependence] 07-05-2023 Episodic Septicemia (except in labor) (7 sources) Sepsis; Translations: [Sepsis, unspecified organism] Onset: 5 07-31-2024 Episodic Skin and subcutaneous tissue infections (4 sources) Abscess of face; Translations: [Cutaneous abscess of face] 10-05-2023 Episodic Spondylosis; intervertebral disc disorders; other back problems (5 sources) Degeneration of thoracic intervertebral disc; Translations: [Other intervertebral disc degeneration, thoracic region] Onset: 4 11-06-2023 Chronic Substance-related disorders (8 sources) Cigarette smoker ; Translations: [Nicotine dependence, cigarettes, uncomplicated] Onset: 5 06-24-2023 Chronic Substance-related disorders (2 sources) Marijuana user; Translations: [Cannabis use, unspecified, uncomplicated] Onset: 5 06-29-2024 Episodic Superficial injury; contusion (8 sources) Contusion of hip; Translations: [Contusion of right hip, initial encounter] 11-25-2022 Episodic Unclassified (3 sources) Unknown / UNK(Unknown) Onset: 7 Unclassified (3 sources) at [place] location Unclassified (3 sources) appointment with Unclassified (1 source) Headaches; Translations: [Headaches] Onset: 5 Urinary tract infections (9 sources) Urinary tract infectious disease; Translations: [Urinary tract infection, site not specified] 10-18-2022 Episodic Viral infection (20 sources) Disease caused by 2019-nCoV; Translations: [COVID-19] 10-10-2022 Episodic Past or Other Problems Problem Classification Problem Date Documented Da te Episodic/Chronic Coronary atherosclerosis and other heart disease (20 sources) Coronary arteriosclerosis; Translations: [Atherosclerotic heart disease of [place] coronary artery with unspecified angina pectoris] Onset: 12-26-2015 Resolved: 06-07-2017 06-07-2017 Chronic Disorders of teeth and jaw (20 sources) Periapical abscess; Translations: [Periapical abscess without sinus] Onset: 08-19-2013 08-19-2013 Episodic Nonspecific chest pain (20 sources) Atypical chest pain; Translations: [Other chest pain] Onset: 12-26-2015 Resolved: 06-07-2017 06-07-2017 Episodic Other aftercare (20 sources) Drug therapy finding; Translations: [Other residential (current) drug therapy] Onset: 06-07-2017 06-07-2017 Episodic [...] tube disorder, bilateral] Onset: 10-22-2023 10-22-2023 Episodic Pneumonia (except that caused by tuberculosis or sexually transmitted disease) (20 sources) Community acquired pneumonia; Translations: [Pneumonia, unspecified organism] Onset: 05-16-2023 05-11-2023 Episodic Residual codes; unclassified (20 sources) Noncompliance [...] Test Name Value Interpretation Reference Range Facility Basic Metabolic Profile (BMP )on 08-17-2024 BUN/CRE 14.3 RATIO Normal 10-20 [facility] Comment on above: Performed By: #### L 100.0100, L503.7505, L500.2500 ####[facility] [address] [place], [address] Calcium [Mass/Vol] 8.1 mg/dL Normal 7.6-11.0 [facility] Comment on above: Performed By: #### L 100.0100, L503.7505, L500.2500 ####[facility] [address] [place], [address] Chloride [Moles/Vol] 103 mmol/L Normal 98-108 [facility] Comment on above: Performed By: #### L 100.0100, L503.7505, L500.2500 ####[facility] [address] [place], [address] CO2 [Moles/Vol] 30.5 mmol/L Normal 21.0-32.0 [facility] Comment on above: Performed By: #### L 100.0100, L503.7505, L500.2500 ####[facility] [address] [place], [address] Creatinine [Mass/Vol] 1.41 mg/dL High 0.70-1.20 [facility] Comment on above: Performed By: #### L 100.0100, L503.7505, L500.2500 ####[facility] [address] [place], [address] ECRCL 35.27 ml/min Low 50-250 [facility] Comment on above: Performed By: #### L 100.0100, L503.7505, L500.2500 ####[facility] [address] [place], [address] GAP 11 Normal 5-15 [facility] Comment on above: Performed By: #### L 100.0100, L503.7505, L500.2500 ####[facility] [address] [place], [address] GFR/1.73 sq M.predicted among non-blacks MDRD (S/P/Bld) [Vol rate/Area] 42 mL/min/{1.73_m2} Low >60 [facility] Comment on above: Result Comment: mL/m in/1.73m2 CKD-EPI Creatinine Equation (2020) Performed By: #### L 100.0100, L503.7505, L500.2500 ####[facility] [address] [place], [address] Glucose [Mass/Vol] 91 mg/dL Normal 70-99 [facility] Comment on above: Performed By: #### L 100.0100, L503.7505, L500.2500 ####[facility] [address] [place], [address] Potassium [Moles/Vol] 3.7 mmol/L Normal 3.3-5.1 [facility] Comment on above: Performed By: #### L 100.0100, L503.7505, L500.2500 ####[facility] [address] [place], [address] Sodium [Moles/Vol] 145 mmol/L Normal 133-145 [facility] Comment on above: Performed By: #### L 100.0100, L503.7505, L500.2500 ####[facility] [address] [place], [address] Urea nitrogen [Mass/Vol] 20 mg/dL High 4-19 [facility] Comment on above: Performed By: #### L 100.0100, L503.7505, L500.2500 ####[facility] [address] [place], [address] CBC W/Diff, Automatedon 06- Absolute Lymph 1.70 X10 3/uL Normal 0.83-4.51 [facility] Comment on above: Performed By: #### L 100.0100, L503.7505, L500.2500 ####[facility] [address] [place], [address] Absolute Neut 3.9 X10 3/uL Normal 2.0-7.7 [facility] Comment on above: Performed By: #### L 100.0100, L503.7505, L500.2500 ####[facility] [address] [place], [address] Basophils/100 WBC (Bld) 0.9 % Normal 0-1 [facility] Comment on above: Performed By: #### L 100.0100, L503.7505, L500.2500 ####[facility] [address] [place], [address] Eosinophils/100 WBC (Bld) 3.9 % Normal 0-5 [facility] Comment on above: Performed By: #### L 100.0100, L503.7505, L500.2500 ####[facility] [address] [place], [address] Erythrocyte distribution width (RBC) [Ratio] 14.6 % Normal 11.6-14.6 [facility] Comment on above: Performed By: #### L 100.0100, L503.7505, L500.2500 ####[facility] [address] [place], [address] Hematocrit (Bld) [Volume fraction] 24.2 % Low 37-47 [facility] Comment on above: Performed By: #### L 100.0100, L503.7505, L500.2500 ####[facility] [address] [place], [address] Hemoglobin (Bld) [Mass/Vol] 7.6 g/dL Low 12.0-15.0 [facility] Comment on above: Performed By: #### L 100.0100, L503.7505, L500.2500 ####[facility] [address] [place], [address] IG% 0.500 Normal 0.0-0.9 [facility] Comment on above: Result Comment: IG% - Immature Granulocytes (promyelocytes, myelocytes andmetamyelocytes) > 1% indicates that a LEFT SHIFT is Present. Performed By: #### L 100.0100, L503.7505, L500.2500 ####[facility] [address] [place], [address] Lymphocytes/100 WBC (Bld) 26.4 % Normal 19-41 [facility] Comment on above: Performed By: #### L 100.0100, L503.7505, L500.2500 ####[facility] [address] [place], [address] MCH (RBC) [Entitic mass] 28.7 pg Normal 27.0-32.0 [facility] Comment on above: Performed By: #### L 100.0100, L503.7505, L500.2500 ####[facility] [address] [place], [address] MCHC (RBC) [Mass/Vol] 31.4 g/dL Low 32-36 [facility] Comment on above: Performed By: #### L 100.0100, L503.7505, L500.2500 ####[facility] [address] [place], [address] MCV (RBC) [Entitic vol] 91.3 fL Normal 81-99 [facility] Comment on above: Performed By: #### L 100.0100, L503.7505, L500.2500 ####[facility] [address] [place], [address] Monocytes/100 WBC (Bld) 8.2 % Normal 0-10 [facility] Comment on above: Performed By: #### L 100.0100, L503.7505, L500.2500 ####[facility] [address] [place], [address] Neutrophils/100 WBC (Bld) 60.1 % Normal 47-70 [facility] Comment on above: Performed By: #### L 100.0100, L503.7505, L500.2500 ####[facility] [address] [place], [address] Nucleated RBC (Bld) [#/Vol] 0 10*3/uL Normal 0-5 [facility] Comment on above: Performed By: #### L 100.0100, L503.7505, L500.2500 ####[facility] [address] [place], [address] Platelet mean volume (Bld) [Entitic vol] 9.5 fL Normal 6.2-12.0 [facility] Comment on above: Performed By: #### L 100.0100, L503.7505, L500.2500 ####[facility] [address] [place], [address] Platelets (Bld) [#/Vol] 292 10*3/uL Normal 150-450 [facility] Comment on above: Performed By: #### L 100.0100, L503.7505, L500.2500 ####[facility] [address] [place], [address] RBC (Bld) [#/Vol] 2.65 10*6/uL Low 4.2-5.4 [facility] Comment on above: Performed By: #### L 100.0100, L503.7505, L500.2500 ####[facility] [address] [place], [address] RDW SD 48.1 fl High 35.1-43.9 [facility] Comment on above: Performed By: #### L 100.0100, L503.7505, L500.2500 ####[facility] [address] [place], [address] WBC (Bld) [#/Vol] 6.5 10*3/uL Normal 4.4-11.0 [facility] Comment on above: Performed By: #### L 100.0100, L503.7505, L500.2500 ####[facility] [address] [place], [address] Chest PA and Lateralon 08-17 Chest PA and Lateral Normal [facility] L499.0042on 08-17-2024 Trop T High Sen 29 ng/L High <=14 [facility] Comment on above: Performed By: #### L 499.0042 ####[facility] [address] [place], [address] L501.4021on 08-17-2024 Trop T High Sen 28 ng/L High <=14 [facility] Comment on above: Performed By: #### L 501.4021 ####[facility] [address] [place], [address] L503.7505on 08-17-2024 Natriuretic peptide B (Bld) [Mass/Vol] 3456 pg/mL High <=900 [facility] Comment on above: Result Comment: Hear t Failure Unlikely: < 300 pg/mLHeart Failure Likely< 50 Years: > 450 pg/mL50-75 Years: > 900 pg/mL>75 Years: > 1800 pg/mL Performed By: #### L 100.0100, L503.7505, L500.2500 ####[facility] [address] [place], [address] Venous Blood Gason 5 Blood Gas Type CAROLINA Normal [facility] Comment on above: Performed By: #### L 9000.0810 ####[facility] [address] [place], [address] CO2 [Moles/Vol] 40 mmol/L High 23-33 [facility] Comment on above: Performed By: #### L 9000.0810 ####[facility] [address] [place], [address] HCO3 (Bld) [Moles/Vol] 38 mmol/L High 22-26 [facility] Comment on above: Performed By: #### L 9000.0810 ####[facility] [address] [place], [address] O2 Delivery Dev Not entered [facility] Comment on above: Performed By: #### L 9000.0810 ####[facility] [address] [place], [address] SITE Not entered [facility] Comment on above: Performed By: #### L 9000.0810 ####[facility] [address] [place], [address] VBG BE 14 mmol/L High -1.0-3.5 [facility] Comment on above: Performed By: #### L 9000.0810 ####[facility] [address] [place], [address] VBG pCO2 60.8 mmHg High 41-51 [facility] Comment on above: Performed By: #### L 9000.0810 ####[facility] [address] [place], [address] VBG pH 7.41 Normal 7.32-7.42 [facility] Comment on above: Performed By: #### L 9000.0810 ####[facility] [address] [place], [address] VBG PO2 56 mmHg High 25-40 [facility] Comment on above: Performed By: #### L 9000.0810 ####[facility] [address] [place], [address] VBG SO2 88 High 50-70 [facility] Comment on above: Performed By: #### L 9000.0810 ####[facility] [address] [place], [address] Anion gap in Serum or Plasma Ordered By: Merrick White on 08-14-2024 Anion gap [Moles/Vol] 12 mmol/L - [facility] BUN/creatinine ratioOrdered By: Merrick White on 08-14-2024 Urea nitrogen/Creatinine [Mass ratio] 13.6 mg/mg - [facility] Basic Metabolic Profile (BMP )on 08-14-2024 BUN/CRE 13.6 RATIO Normal - [facility] Comment on above: Performed By: #### L 501.8820, L100.0500, L101.9900, L500.2500 ####[facility] [address] [place], [address] Calcium [Mass/Vol] 8.1 mg/dL Normal 7.6-11.0 [facility] Comment on above: Performed By: #### L 501.8820, L100.0500, L101.9900, L500.2500 ####[facility] [address] [place], [address] Chloride [Moles/Vol] 103 mmol/L Normal 98-108 [facility] Comment on above: Performed By: #### L 501.8820, L100.0500, L101.9900, L500.2500 ####[facility] [address] [place], [address] CO2 [Moles/Vol] 30.6 mmol/L Normal 21.0-32.0 [facility] Comment on above: Performed By: #### L 501.8820, L100.0500, L101.9900, L500.2500 ####[facility] [address] [place], [address] Creatinine [Mass/Vol] 1.54 mg/dL High 0.70-1.20 [facility] Comment on above: Performed By: #### L 501.8820, L100.0500, L101.9900, L500.2500 ####[facility] [address] [place], [address] ECRCL 30.89 ml/min Low 50-250 [facility] Comment on above: Performed By: #### L 501.8820, L100.0500, L101.9900, L500.2500 ####[facility] [address] [place], [address] GAP 12 Normal 5-15 [facility] Comment on above: Performed By: #### L 501.8820, L100.0500, L101.9900, L500.2500 ####[facility] [address] [place], [address] GFR/1.73 sq M.predicted among non-blacks MDRD (S/P/Bld) [Vol rate/Area] 38 mL/min/{1.73_m2} Low >60 [facility] Comment on above: Result Comment: mL/m in/1.73m2 CKD-EPI Creatinine Equation (2020) Performed By: #### L 501.8820, L100.0500, L101.9900, L500.2500 ####[facility] [address] [place], [address] Glucose [Mass/Vol] 95 mg/dL Normal 70-99 [facility] Comment on above: Performed By: #### L 501.8820, L100.0500, L101.9900, L500.2500 ####[facility] [address] [place], [address] Potassium [Moles/Vol] 3.3 mmol/L Normal 3.3-5.1 [facility] Comment on above: Performed By: #### L 501.8820, L100.0500, L101.9900, L500.2500 ####[facility] [address] [place], [address] Sodium [Moles/Vol] 146 mmol/L High 133-145 [facility] Comment on above: Performed By: #### L 501.8820, L100.0500, L101.9900, L500.2500 ####[facility] [address] [place], [address] Urea nitrogen [Mass/Vol] 21 mg/dL High 4-19 [facility] Comment on above: Performed By: #### L 501.8820, L100.0500, L101.9900, L500.2500 ####[facility] [address] [place], [address] CBC-Complete Blood Cnt No Di ffon 08-14-2024 Erythrocyte distribution width (RBC) [Ratio] 14.3 % Normal 11.6-14.6 [facility] Comment on above: Performed By: #### L 501.8820, L100.0500, L101.9900, L500.2500 ####[facility] [address] [place], [address] Hematocrit (Bld) [Volume fraction] 24.5 % Low 37-47 [facility] Comment on above: Performed By: #### L 501.8820, L100.0500, L101.9900, L500.2500 ####[facility] [address] [place], [address] Hemoglobin (Bld) [Mass/Vol] 7.7 g/dL Low 12.0-15.0 [facility] Comment on above: Performed By: #### L 501.8820, L100.0500, L101.9900, L500.2500 ####[facility] [address] [place], [address] MCH (RBC) [Entitic mass] 28.5 pg Normal 27.0-32.0 [facility] Comment on above: Performed By: #### L 501.8820, L100.0500, L101.9900, L500.2500 ####[facility] [address] [place], [address] MCHC (RBC) [Mass/Vol] 31.4 g/dL Low 32-36 [facility] Comment on above: Performed By: #### L 501.8820, L100.0500, L101.9900, L500.2500 ####[facility] [address] [place], [address] MCV (RBC) [Entitic vol] 90.7 fL Normal 81-99 [facility] Comment on above: Performed By: #### L 501.8820, L100.0500, L101.9900, L500.2500 ####[facility] [address] [place], [address] Platelet mean volume (Bld) [Entitic vol] 9.3 fL Normal 6.2-12.0 [facility] Comment on above: Performed By: #### L 501.8820, L100.0500, L101.9900, L500.2500 ####[facility] [address] [place], [address] Platelets (Bld) [#/Vol] 338 10*3/uL Normal 150-450 [facility] Comment on above: Performed By: #### L 501.8820, L100.0500, L101.9900, L500.2500 ####[facility] [address] [place], [address] RBC (Bld) [#/Vol] 2.70 10*6/uL Low 4.2-5.4 [facility] Comment on above: Performed By: #### L 501.8820, L100.0500, L101.9900, L500.2500 ####[facility] [address] [place], [address] RDW SD 47.0 fl High 35.1-43.9 [facility] Comment on above: Performed By: #### L 501.8820, L100.0500, L101.9900, L500.2500 ####[facility] [address] [place], [address] WBC (Bld) [#/Vol] 8.9 10*3/uL Normal 4.4-11.0 [facility] Comment on above: Performed By: #### L 501.8820, L100.0500, L101.9900, L500.2500 ####[facility] [address] [place], [address] Carbon dioxide, total [Moles /volume] in Central venous bloodOrdered By: Merrick White on 08-14-2024 CO2 [Moles/Vol] 30.6 mmol/L 21.0-32.0 [facility] Chloride assayOrdered By: Obdulia White on 08-14-2024 Chloride [Moles/Vol] 103 mmol/L 98-108 [facility] Erythrocyte Sed Rateon 08-14 SED RATE 35 mm/hr High 0-30 [facility] Comment on above: Performed By: #### L 501.8820, L100.0500, L101.9900, L500.2500 ####[facility] [address] [place], [address] Erythrocyte distribution wid th ratioOrdered By: Merrick White on 08-14-2024 Erythrocyte distribution width (RBC) [Ratio] 14.3 % 11.6-14.6 [facility] Erythrocyte distribution wid th standard deviationOrdered By: Merrick White on 08-14-2024 Erythrocyte distribution width (RBC) [Ratio] 47.0 fl High 35.1-43.9 [facility] Erythrocyte sedimentation ra teOrdered By: Merrick White on 08-14-2024 ESR (Bld) [Velocity] 35 mm/h High 0-30 [facility] Glomerular filtration rate ( GFR) estimation/1.73 sq m using serum, plasma, or whole bOrdered By: Merrick White on 08-14-2024 GFR/1.73 sq M.predicted among non-blacks MDRD (S/P/Bld) [Vol rate/Area] 38 mL/min/{1.73_m2} Low >60 [facility] Comment on above: mL/min/1.73m2 CKD-EP I Creatinine Equation (2020) Hematocrit Auto (Bld) [Volum e fraction]Ordered By: Merrick White on 08-14-2024 Hematocrit (Bld) [Volume fraction] 24.5 % Low 37-47 [facility] Hemoglobin measurementOrdere d By: Merrick White on 08-14-2024 Hemoglobin (Bld) [Mass/Vol] 7.7 g/dL Low 12.0-15.0 [facility] MCV (mean corpuscular volume ) determinationOrdered By: Merrick White on 08-14-2024 MCV (RBC) [Entitic vol] 90.7 fL 81-99 [facility] Mean corpuscular hemoglobin (MCH) determinationOrdered By: Merrick White on 08-14-2024 MCH (RBC) [Entitic mass] 28.5 pg 27.0-32.0 [facility] Mean corpuscular hemoglobin concentration (MCHC) determinationOrdered By: Merrick White on 08-14-2024 MCHC (RBC) [Mass/Vol] 31.4 g/dL Low 32-36 [facility] Mean platelet volume determi nationOrdered By: Merrick White on 08-14-2024 Platelet mean volume (Bld) [Entitic vol] 9.3 fL 6.2-12.0 [facility] Platelet countOrdered By: Obdulia White on 08-14-2024 Platelets (Bld) [#/Vol] 338 10*3/uL 150-450 [facility] Potassium measurement (mass/ volume)Ordered By: Merrick White on 08-14-2024 Potassium (Unsp spec) [Mass/Vol] 3.3 mmol/L 3.3-5.1 [facility] RBC Auto (Bld) [#/Vol]Ordere d By: Merrick White on 08-14-2024 RBC (Bld) [#/Vol] 2.70 10*6/uL Low 4.2-5.4 [facility] Serum creatinine measurement (mass/volume)Ordered By: Merrick White on 08-14-2024 Creatinine [Mass/Vol] 1.54 mg/dL High 0.70-1.20 [facility] Serum glucose measurement (m ass/volume)Ordered By: Merrick White on 08-14-2024 Glucose [Mass/Vol] 95 mg/dL 70-99 [facility] Serum or plasma calcium melo urement (mass/volume)Ordered By: Merrick White on 08-14-2024 Calcium [Mass/Vol] 8.1 mg/dL 7.6-11.0 [facility] Serum or plasma urea nitroge n measurement (mass/volume)Ordered By: Merrick White on 08-14-2024 Urea nitrogen [Mass/Vol] 21 mg/dL High 4-19 [facility] Sodium levelOrdered By: Refugio White on 08-14-2024 Sodium [Moles/Vol] 146 mmol/L High 133-145 [facility] Trough vancomycin levelOrder ed By: Merrick White on 08-14-2024 Vancomycin trough [Mass/Vol] 20.8 ug/mL High 5.0-15.0 [facility] Comment on above: Recommended goal tro ugh ranges are generally 10-15 mcg/ml for less severe/complicated infections such as cellulitis or UTI and 15-20 mcg/ml for more severe/complicated infections such as bacteremia/sepsis, osteomyelitis, pneumonia or meningitis. Goal trough ranges should take into account indication, patient-specific factors and organism FLO.VANCOMYCIN STANDARED DRUG THERAPY TROUGH LEVEL: 5.0 - 15.0 mg/L VANCOMYCIN HIGH INTENSITY THERAPY TROUGH LEVEL: 15.0 - 20.0 mg/L High Intensity therapy recommended for serious lifethreatening infections include:- Xejbhivkfl-Ypqludqsnkcy-Aatavkgbu (Ventilator/Healtcare Associated)-Sepsis PLEASE CONTACT PHARMACY SERVICES (#[id number]) FOR INTERPRETATIONOF RESULTS. Vancomycin, Trough Levelon 0 08-14-2024 VANCO, TROUGH 20.8 ug/mL High 5.0-15.0 [facility] Comment on above: Order Comment: 0000 Result Comment: Robin mmended goal trough ranges are generally 10-15 mcg/mlfor less severe/complicated infections such as cellulitisor UTI and 15-20 mcg/ml for more severe/complicatedinfections such as bacteremia/sepsis, osteomyelitis,pneumonia or meningitis. Goal trough ranges should takeinto account indication, patient-specific factors andorganism FLO.VANCOMYCIN STANDARED DRUG THERAPY TROUGH LEVEL: 5.0 - 15.0 mg/LVANCOMYCIN HIGH INTENSITY THERAPY TROUGH LEVEL: 15.0 - 20.0 mg/LHigh Intensity therapy recommended for serious lifethreatening infections include:- Cwumfvymdl-Pcbpwouxvihx-Zkejxkonb (Ventilator/Healtcare Associated)-SepsisPLEASE CONTACT PHARMACY SERVICES (#[id number]) FOR INTERPRETATIONOF RESULTS. Performed By: #### L 501.8820, L100.0500, L101.9900, L500.2500 ####[facility] [address] [place], [place], [address] White blood cell (WBC) count Ordered By: Merrick White on 08-14-2024 WBC (Bld) [#/Vol] 8.9 10*3/uL 4.4-11.0 [facility] Tyree 08-11-2024 DAVID Telephone (INTWS) LEYDA LOPEZ ([id number]) 1960 F Date Time Provider Department 08/11/24 VELVET PALACIO INTJamarcusWS During your visit today, we recorded the following information about you: EvaristoanuragKellen armentaRADHA 08/11/2024 1:38 PM Signed Neymar from [facility] calling with PT plan of care, 2 visits weekly for 2 weeks then 1 visit weekly for 2 weeks. Working on functional mobility. He said her blood pressure was elevated 180/104 he visited this morning before patient had taken her medications. Velvet Palacio MD 08/13/2024 1:04 PM Addendum Noted , agree for follow plan Please cont checking bp when ever they make it there to make sure it is better Regards, Gustavo Daniel MD, RICARDO 08/13/2024 1:26 PM Signed Neymar from [facility] called and is notified of providers message and instructions. He voices understanding. Gustavo Wells RN Allergies As of Date: 08/11/2024 Noted Allergy Reaction AMLODIPINE 06/13/2023 14 - [...] 5 - Intolerance Comments: fatigue,sleepy Date Reviewed: 08/10/2024 Reviewed by: Cheri Valenzuela MA - Fully Assessed Reason for Visit: PT plan of care [Other] Prescriptions as of 08/13/2024 - busPIRone (BUSPAR) 10 mg tablet Take 1 tablet by mouth three times a day as needed. - pantoprazole DR (PROTONIX) 40 mg tablet Take 1 tablet by mouth once daily. - nitroglycerin sublingual (NITROQUICK) 0.4 mg SL tablet Dissolve 1 tablet under the tongue every 5 minutes as needed for chest pain. - SUMAtriptan (IMITREX) 50 mg tablet Take [...] times a day for 90 days. - ipratropium (ATROVENT) 0.02 % nebulizer solution [...] each every 4 hours as needed. - loperamide (IMODIUM) 2 mg cap(s) Take 1 capsule by mouth three times a day as needed. - meloxicam (MOBIC) 15 mg tablet Take 1 tablet by mouth once daily. - traZODone (DESYREL) 50 mg tablet Take 1 tablet by mouth daily at bedtime. - Blood Pressure Monitor 1 Each as needed. - OXYGEN, HOME THERAPY, 4 L/min by Nasal Cannula route as directed. At night AND 4 L/min when mobile - tiZANidine (ZANAFLEX) 4 mg tablet Take [...] MOUTH DAILY AT 9PM AT BEDTIME - ondansetron orally disintegrating (ZOFRAN ODT) 4 mg disintegrating tablet Take 1 tablet by mouth every 8 hours as needed. - fluticasone-salmeterol (ADVAIR, WIXELA) 250-50 mcg/dose inhaler INHALE 1 PUFF BY MOUTH DIRECTED TWICE DAILY - potassium chloride ER (KLOR-CON) 20 mEq tablet Take 1 tablet by mouth once daily. - acetaminophen 325 mg cap Take by mouth. - hyoscyamine sublingual (LEVSIN SL) 0.125 mg Dissolve 1 tablet under the tongue three times daily as needed. - Cholecalciferol, Vitamin D3, 2,000 unit tab Take 2 tablets by mouth once daily. Meds Comments as of 07/05/2023: Patient is not sure what antibiotic she was place on in hospital Problem List As Of Date 08/11/2024 Noted Resolved Essential hypertension [I10] 03/22/2005 Moderate episode of recurrent major depressive *03/22/2005 PANIC DISORDER WITHOUT AGORAPHOBIA [F41.0] 03/22/2005 Asthma [J45.909] 03/22/2005 Hyperlipidemia [E78.5] ANEMIA BLOOD LOSS CHRONIC [D50.0] 12/23/2007 12/01/2013 BONE AND CARTILAGE DIS NOS [M89.9, M94.9] 02/09/2008 CRI (chronic renal insufficiency) (HCC) [N18.9] 09/30/2009 12/01/2013 Bip (more content not included)... Normal [facility] CNOVon 08-10-2024 CNOV Office Visit (INTMWS ) JOHNLEYDA ([id number]) 1960 F Date Time Provider Department 08/10/24 2:00 PM VELVET PALACIO INTMWS During your visit today, we recorded the following information about you: Pulse Respiration Blood pressure Weight 85/minute 20/minute 195/115 61.7 kg Velvet Palacio MD 08/10/2024 5:33 PM Signed Reason for Visit Follow up HPI Sara Lopez is a 63-year-old female with a history of recurrent small bowel obstructions, MRSA bacteremia, and COPD, presenting for follow-up after a recent hospitalization. Sara was hospitalized 2 weeks ago for a small bowel obstruction and MRSA bacteremia. She reports that this is a recurrent issue, occurring approximately every 10 years, with the last episode 8-10 years ago. During the recent hospitalization, she experienced significant emesis of green bile but did not require surgical intervention. She is currently on a 6-week course of vancomycin, administered twice daily, and reports fatigue associated with the medication. She also has a history of COPD and is on supplemental oxygen. She experiences dyspnea with physical activity but recovers quickly. She is also on multiple medications, including albuterol, ceftriaxone, meloxicam, tizanidine, atorvastatin, lansoprazole, and pregabalin. She recently discontinued amitriptyline about a week ago due to severe side effects, including prolonged sedation and inability to ambulate or speak. She is currently taking trazodone at night for sleep, hydroxyzine as needed for anxiety, Lexapro daily, and BuSpar as needed. She expresses a desire to continue Lexapro, referring to it as her happy pill. Sara is receiving home health care, including physical therapy and occupational therapy. She reports feeling better since discontinuing amitriptyline and is able to ambulate and perform activities of daily living. Social History Tobacco Use Smoking status: Former Current packs/day: 0.00 Average packs/day: 0.5 packs/day for 20.0 years (10.0 ttl pk-yrs) Types: Cigarettes Start date: 1973 Quit date: 03/04/1989 Years since quittin.4 Smokeless tobacco: Never Tobacco comments: Both parents smoked in childhood home. Lived with smoker as adult. Vaping Use Vaping status: Never Used Substance Use Topics Alcohol use: No Drug use: No Past medical history, appointments, medications, allergies reviewed. Pertinent Lab/Diagnostic Studies are reviewed and discussed today Current Outpatient Medications: nitroglycerin sublingual (NITROQUICK) 0.4 mg SL tablet SUMAtriptan (IMITREX) 50 mg tablet Nebulizer Accessories kit pregabalin (LYRICA) 150 mg capsule ipratropium (ATROVENT) 0.02 % nebulizer solution Nebulizer Accessories kit albuterol (PROVENTIL) 2.5 mg /3 mL (0.083 %) nebulizer solution Nebulizer and Compressor For Neb loperamide (IMODIUM) 2 mg cap(s) meloxicam (MOBIC) 15 mg tablet traZODone (DESYREL) 50 mg tablet Blood Pressure Monitor OXYGEN, HOME THERAPY, tiZANidine (ZANAFLEX) 4 mg tablet furosemide (LASIX) 40 mg tablet lisinopril (ZESTRIL) 40 mg tablet escitalopram oxalate (LEXAPRO) 20 mg tablet atorvastatin (LIPITOR) 40 mg tablet ondansetron orally disintegrating (ZOFRAN ODT) 4 mg disintegrating tablet fluticasone-salmeterol (ADVAIR, WIXELA) 250-50 mcg/dose inhaler potassium chloride ER (KLOR-CON) 20 mEq tablet acetaminophen 325 mg cap hyoscyamine sublingual (LEVSIN SL) 0.125 mg Cholecalciferol, Vitamin D3, 2,000 unit tab busPIRone (BUSPAR) [address] (PROTONIX) 40 mg tablet Health Maintenance BP Controlled (<130/80) Shingrix Vaccine(1 of 2) Pneumococcal Vaccine: 50+(2 of 2 - PCV) Mammogram Screening Colorectal Cancer Screening@ Review Of Systems Constitutional: (+) fatigue Respiratory: (+) dyspnea on exertion Musculoskeletal: (+) pain Physical Exam BP 195/115 Pulse 85 Resp 20 Wt 61.7 kg (136 lb 1.9 oz) SpO2 95% BMI 28.95 kg/m? GENERAL: Is on oxygen. therapy SKIN: Unremarkable, no rash or skin lesions. HEAD: Normocephalic. EYES: PERRLA, EOMI, conjunctiva clear. EARS: External ears normal, canals clear, TM's normal. NECK: Supple, no lymphadenopathy, normal thyroid, no carotid bruits. LUNGS: Clear to auscultation bilaterally, no wheezes/rhonchi/rales. HEART: Regular rate and rhythm, no murmurs. No ectopy. EXTREMITIES: Normal, no deformities, no skin discoloration, no edema. NEURO: Awake, alert and oriented x3, cranial nerves II-XII grossly intact, normal gait, no involuntary motions. Labs: - Blood culture: Positive for MRSA Assessment and Plan 1. Hospital discharge follow-up (Z09) MRSA bacteremia (R78.81) Recent hospitalization for small bowel obstruction and MRSA bacteremia. Currently on vancomycin IV therapy twice daily for 6 weeks. No evidence of sepsis. MRSA source unknown, potential skin e (more content not included)... Normal [facility] CNPNon 08-10-2024 CNPN Telephone (FAMPWS) JOHNLEYDA ([id number]) 1960 F Date Time Provider Department 08/10/24 VELVET PALACIO During your visit today, we recorded the following information about you: Suellen Zaragoza LPN 08/10/2024 8:35 AM Signed Brittany with [facility] SW calls to report order for SW to see pt expires today. Brittany reports she finally was able to get in contact with pt who agreed for Brittany to come out tomorrow. Brittany is calling for a VO to delay start of care to tomorrow. RADHA Mendieta Chitra, MD 08/10/2024 4:51 PM Signed VO for the same Regards, Cheri Anand MD, MA 08/10/2024 5:02 PM Signed Unable to reach. Left detailed message on identified VM. Cheri Valenzuela MA Allergies As of Date: 08/10/2024 Noted Allergy Reaction AMLODIPINE 06/13/2023 14 - [...] 5 - Intolerance Comments: fatigue,sleepy Date Reviewed: 08/10/2024 Reviewed by: Cheri Valenzuela MA - Fully Assessed Reason for Visit: verbal orders [Other] Prescriptions as of 08/10/2024 - busPIRone (BUSPAR) 10 mg tablet Take 1 tablet by mouth three times a day as needed. - pantoprazole DR (PROTONIX) 40 mg tablet Take 1 tablet by mouth once daily. - nitroglycerin sublingual (NITROQUICK) 0.4 mg SL tablet Dissolve 1 tablet under the tongue every 5 minutes as needed for chest pain. - SUMAtriptan (IMITREX) 50 mg tablet Take [...] times a day for 90 days. - ipratropium (ATROVENT) 0.02 % nebulizer solution [...] each every 4 hours as needed. - loperamide (IMODIUM) 2 mg cap(s) Take 1 capsule by mouth three times a day as needed. - meloxicam (MOBIC) 15 mg tablet Take 1 tablet by mouth once daily. - traZODone (DESYREL) 50 mg tablet Take 1 tablet by mouth daily at bedtime. - Blood Pressure Monitor 1 Each as needed. - OXYGEN, HOME THERAPY, 4 L/min by Nasal Cannula route as directed. At night AND 4 L/min when mobile - tiZANidine (ZANAFLEX) 4 mg tablet Take [...] MOUTH DAILY AT 9PM AT BEDTIME - ondansetron orally disintegrating (ZOFRAN ODT) 4 mg disintegrating tablet Take 1 tablet by mouth every 8 hours as needed. - fluticasone-salmeterol (ADVAIR, WIXELA) 250-50 mcg/dose inhaler INHALE 1 PUFF BY MOUTH DIRECTED TWICE DAILY - potassium chloride ER (KLOR-CON) 20 mEq tablet Take 1 tablet by mouth once daily. - acetaminophen 325 mg cap Take by [...] in hospital Problem List As Of Date 08/10/2024 Noted Resolved Essential hypertension [I10] 03/22/2005 Moderate episode of recurrent major depressive *03/22/2005 PANIC DISORDER WITHOUT AGORAPHOBIA [F41.0] 03/22/2005 Asthma [J45.909] 03/22/2005 Hyperlipidemia [E78.5] ANEMIA BLOOD LOSS CHRONIC [D50.0] 12/23/2007 12/01/2013 BONE AND CARTILAGE DIS NOS [M89.9, M94.9] 02/09/2008 CRI (chronic renal insufficiency) (HCC) [N18.9] 09/30/2009 12/01/2013 Bipolar affective [F31.9] 04/27/2010 05/21/2018 COPD (chronic (more content not included)... Normal [facility] Telephone (INTMWS) LEYDA LOPEZ ([id number]) 1960 F Date Time Provider Department 08/10/24 VELVET PALACIO During your visit today, we recorded the following information about you: Jenniferkathi KellenRADHA 08/10/2024 11:12 AM Signed Homa from [facility] calling with drug to drug interactions with Hydroxyzine and Potassium and Potassium and Amitriptyline. Not sure if patient is still taking Potassium old bottle in her bag at home. Duplicate Therapy Trazodone and Amitriptyline and Hydroxyzine (patient takes 3 times daily) and Buspirone. Asking for a copy of office notes with medications updated after today hospital follow up to be faxed to [facility] at [phone] please. Velvet Palacio MD 08/10/2024 4:57 PM Signed She should stop the amitryptilline, she has already stopped it per patient We stopped the hydroxyzine today, it was only as needed. Cont the lexapro and the trazodone. I am not concerned about interactions with this. Ok to cont buspar Let me know if you have any questionts. Regards, Gustavo Daniel MD, RN 08/10/2024 5:12 PM Signed Homa from [facility] called and is notified of providers message and instructions. She voices understanding. Gustavo Wells, RICARDO Allergies As of Date: 08/10/2024 Noted Allergy Reaction AMLODIPINE 06/13/2023 14 - [...] 5 - Intolerance Comments: fatigue,sleepy Date Reviewed: 08/10/2024 Reviewed by: Cheri Valenzuela MA - Fully Assessed Reason for Visit: drug to drug interactions, duplicate therapy [Other] Prescriptions as of 08/10/2024 - busPIRone (BUSPAR) 10 mg tablet Take 1 tablet by mouth three times a day as needed. - pantoprazole DR (PROTONIX) 40 mg tablet Take 1 tablet by mouth once daily. - nitroglycerin sublingual (NITROQUICK) 0.4 mg SL tablet Dissolve 1 tablet under the tongue every 5 minutes as needed for chest pain. - SUMAtriptan (IMITREX) 50 mg tablet Take [...] times a day for 90 days. - ipratropium (ATROVENT) 0.02 % nebulizer solution [...] each every 4 hours as needed. - loperamide (IMODIUM) 2 mg cap(s) Take 1 capsule by mouth three times a day as needed. - meloxicam (MOBIC) 15 mg tablet Take 1 tablet by mouth once daily. - traZODone (DESYREL) 50 mg tablet Take 1 tablet by mouth daily at bedtime. - Blood Pressure Monitor 1 Each as needed. - OXYGEN, HOME THERAPY, 4 L/min by Nasal Cannula route as directed. At night AND 4 L/min when mobile - tiZANidine (ZANAFLEX) 4 mg tablet Take [...] MOUTH DAILY AT 9PM AT BEDTIME - ondansetron orally disintegrating (ZOFRAN ODT) 4 mg disintegrating tablet Take 1 tablet by mouth every 8 hours as needed. - fluticasone-salmeterol (ADVAIR, WIXELA) 250-50 mcg/dose inhaler INHALE 1 PUFF BY MOUTH DIRECTED TWICE DAILY - potassium chloride ER (KLOR-CON) 20 mEq tablet Take 1 tablet by mouth once daily. - acetaminophen 325 mg cap Take by [...] of 07/05/2023: Patient is not sure what antibioti (more content not included)... [facility] LEYDA LOPEZ ([id number]) 1960 F Date Time Provider Department 08/10/24 VELVET PALACIO [facility] During your visit today, we recorded the following information about you: Suellen Zaragoza LPN 08/10/2024 11:28 AM Signed Thelma with [facility] OT calls to report she evaluated pt today. Thelma reports OT will see pt once a week x 1 week then twice a week x 2 weeks. Thelma also reports she arrived at pt's home around 10:30 and took pt's bp. Pt told Thelma she just took her bp medication. BP: 189/107 HR 78 Thelma reports pt had no sx of high bp. BP at 11:00 am: 191/98 HR 78 Thelma also reports that pt told Thelma that she was in [facility] ER 08/06 but could not remember why she was at the ER. Pt has an appt today with pcp @ 2pm. RADHA Mendieta Chitra, MD 08/10/2024 4:55 PM Signed Noted and agree Regards, Gustavo Daniel MD, RN 08/10/2024 5:19 PM Signed Called and left a detailed voicemail notifying Thelma-[facility] OT of providers message. Clinic phone number was left in case she had any questions. Gustavo Wells RN Allergies As of Date: 08/10/2024 Noted Allergy Reaction AMLODIPINE 06/13/2023 14 - [...] 5 - Intolerance Comments: fatigue,sleepy Date Reviewed: 08/10/2024 Reviewed by: Cheri Valenzuela MA - Fully Assessed Reason for Visit: OT POC [Other] Blood Pressure Check [195] Prescriptions as of 08/10/2024 - busPIRone (BUSPAR) 10 mg tablet Take 1 tablet by mouth three times a day as needed. - pantoprazole DR (PROTONIX) 40 mg tablet Take 1 tablet by mouth once daily. - nitroglycerin sublingual (NITROQUICK) 0.4 mg SL tablet Dissolve 1 tablet under the tongue every 5 minutes as needed for chest pain. - SUMAtriptan (IMITREX) 50 mg tablet Take [...] times a day for 90 days. - ipratropium (ATROVENT) 0.02 % nebulizer solution [...] each every 4 hours as needed. - loperamide (IMODIUM) 2 mg cap(s) Take 1 capsule by mouth three times a day as needed. - meloxicam (MOBIC) 15 mg tablet Take 1 tablet by mouth once daily. - traZODone (DESYREL) 50 mg tablet Take 1 tablet by mouth daily at bedtime. - Blood Pressure Monitor 1 Each as needed. - OXYGEN, HOME THERAPY, 4 L/min by Nasal Cannula route as directed. At night AND 4 L/min when mobile - tiZANidine (ZANAFLEX) 4 mg tablet Take [...] MOUTH DAILY AT 9PM AT BEDTIME - ondansetron orally disintegrating (ZOFRAN ODT) 4 mg disintegrating tablet Take 1 tablet by mouth every 8 hours as needed. - fluticasone-salmeterol (ADVAIR, WIXELA) 250-50 mcg/dose inhaler INHALE 1 PUFF BY MOUTH DIRECTED TWICE DAILY - potassium chloride ER (KLOR-CON) 20 mEq tablet Take 1 tablet by mouth once daily. - acetaminophen 325 mg cap Take by [...] in hospital Problem List As Of Date 08/10/2024 Noted Resolved Essential hypertension [I10] 03/22/2005 Moderate episode of recurrent major depressive *03/22/2005 P (more content not included)... Normal [facility] Abdomen Single View (Portabl e)on 08-06-2024 Abdomen Single View (Portable) Normal [facility] Absolute lymphocyte countOrd ered By: Pito Lopez on 08-06-2024 Lymphocytes Auto (Unsp spec) [#/Vol] 1.67 10*3/uL 0.83-4.51 [facility] Absolute neutrophil countOrd ered By: Pito Lopez on 08-06-2024 Neutrophils (Bld) [#/Vol] 8.8 10*3/uL High 2.0-7.7 [facility] Alcohol, Blood (Medical)-Ser umon 08-06-2024 SERUM ETOH < 10.1 Normal <=10.0 [facility] Comment on above: Result Comment: This test is for medical purposes only. The legaldefinition of intoxication varies according to local law. Performed By: #### L 500.2500, L503.6005, L501.9100, L100.0100, L500.3400, L503.5510, L505.5000, L501.2450 ####[facility] [address] [place], [place], [id number] Ammoniaon 08-06-2024 Ammonia (P) [Moles/Vol] 13.6 umol/L Normal 11- [facility] Comment on above: Performed By: #### L 500.2500, L503.6005, L501.9100, L100.0100, L500.3400, L503.5510, L505.5000, L501.2450 ####[facility] [address] [place], [place], [id number] Amphetamine detection with 1 000 ng/mL as cutoffOrdered By: Pito Lopez on 08-06-2024 Amphetamines Screen method >1000 ng/mL Ql (U) Negative < 200 ng/mL [facility] Anion gap in Serum or Plasma Ordered By: Pito Lopez on 08-06-2024 Anion gap [Moles/Vol] 12 mmol/L 5-15 [facility] Automated lymphocyte count a s percentage of total leukocytesOrdered By: Pito Lopez on 08-06-2024 Lymphocytes/100 WBC Auto (Unsp spec) 13.6 % Low 19-41 [facility] BUN/creatinine ratioOrdered By: Pito Lopez on 08-06-2024 Urea nitrogen/Creatinine [Mass ratio] 13.2 mg/mg 10- [facility] Basic Metabolic Profile (BMP )on 08-06-2024 BUN/CRE 13.2 RATIO Normal -20 [facility] Comment on above: Performed By: #### L 500.2500, L503.6005, L501.9100, L100.0100, L500.3400, L503.5510, L505.5000, L501.2450 ####[facility] [address] [place], [address] Calcium [Mass/Vol] 8.0 mg/dL Normal 7.6-11.0 [facility] Comment on above: Performed By: #### L 500.2500, L503.6005, L501.9100, L100.0100, L500.3400, L503.5510, L505.5000, L501.2450 ####[facility] [address] [place], [address] Chloride [Moles/Vol] 102 mmol/L Normal 98-108 [facility] Comment on above: Performed By: #### L 500.2500, L503.6005, L501.9100, L100.0100, L500.3400, L503.5510, L505.5000, L501.2450 ####[facility] [address] [place], [place], [phone] CO2 [Moles/Vol] 27.3 mmol/L Normal 21.0-32.0 [facility] Comment on above: Performed By: #### L 500.2500, L503.6005, L501.9100, L100.0100, L500.3400, L503.5510, L505.5000, L501.2450 ####[facility] [address] [place], [place], [phone] Creatinine [Mass/Vol] 1.19 mg/dL Normal 0.70-1.20 [facility] Comment on above: Performed By: #### L 500.2500, L503.6005, L501.9100, L100.0100, L500.3400, L503.5510, L505.5000, L501.2450 ####[facility] [address] [place], [phone] ECRCL 43.28 ml/min Low 50-250 [facility] Comment on above: Performed By: #### L 500.2500, L503.6005, L501.9100, L100.0100, L500.3400, L503.5510, L505.5000, L501.2450 ####[facility] [address] [place], [place], [phone] GAP 12 Normal 5-15 [facility] Comment on above: Performed By: #### L 500.2500, L503.6005, L501.9100, L100.0100, L500.3400, L503.5510, L505.5000, L501.2450 ####[facility] [address] [place], [address](308) GFR/1.73 sq M.predicted among non-blacks MDRD (S/P/Bld) [Vol rate/Area] 51 mL/min/{1.73_m2} Low >60 [facility] Comment on above: Result Comment: mL/m in/1.73m2 CKD-EPI Creatinine Equation (2020) Performed By: #### L 500.2500, L503.6005, L501.9100, L100.0100, L500.3400, L503.5510, L505.5000, L501.2450 ####[facility] [address] [place], [address] Glucose [Mass/Vol] 143 mg/dL High 70-99 [facility] Comment on above: Performed By: #### L 500.2500, L503.6005, L501.9100, L100.0100, L500.3400, L503.5510, L505.5000, L501.2450 ####[facility] [address] [place], [address] Potassium [Moles/Vol] 3.0 mmol/L Low 3.3-5.1 [facility] Comment on above: Performed By: #### L 500.2500, L503.6005, L501.9100, L100.0100, L500.3400, L503.5510, L505.5000, L501.2450 ####[facility] [address] [place], [address] Sodium [Moles/Vol] 141 mmol/L Normal 133-145 [facility] Comment on above: Performed By: #### L 500.2500, L503.6005, L501.9100, L100.0100, L500.3400, L503.5510, L505.5000, L501.2450 ####[facility] [address] [place], [address] Urea nitrogen [Mass/Vol] 16 mg/dL Normal 4-19 [facility] Comment on above: Performed By: #### L 500.2500, L503.6005, L501.9100, L100.0100, L500.3400, L503.5510, L505.5000, L501.2450 ####[facility] [address] [place], [address] Basophil percentageOrdered B y: Pito Lopez on 08-06-2024 Basophils/100 WBC (Bld) 0.4 % 0-1 [facility] Bilirubin directOrdered By: Pito Lopez on 08-06-2024 Bilirubin.direct [Mass/Vol] 0.18 mg/dL 0.00-0.30 [facility] Bilirubin, totalOrdered By: Pito Lopez on 08-06-2024 Bilirubin [Mass/Vol] 0.32 mg/dL 0.00-1.30 [facility] CBC W/Diff, Automatedon Absolute Lymph 1.67 X10 3/uL Normal 0.83-4.51 [facility] Comment on above: Performed By: #### L 500.2500, L503.6005, L501.9100, L100.0100, L500.3400, L503.5510, L505.5000, L501.2450 ####[facility] [address] [place], [address] Absolute Neut 8.8 X10 3/uL High 2.0-7.7 [facility] Comment on above: Performed By: #### L 500.2500, L503.6005, L501.9100, L100.0100, L500.3400, L503.5510, L505.5000, L501.2450 ####[facility] [address] [place], [address] Basophils/100 WBC (Bld) 0.4 % Normal 0-1 [facility] Comment on above: Performed By: #### L 500.2500, L503.6005, L501.9100, L100.0100, L500.3400, L503.5510, L505.5000, L501.2450 ####[facility] [address] [place], [address] Eosinophils/100 WBC (Bld) 3.9 % Normal 0-5 [facility] Comment on above: Performed By: #### L 500.2500, L503.6005, L501.9100, L100.0100, L500.3400, L503.5510, L505.5000, L501.2450 ####[facility] [address] [place], [address] Erythrocyte distribution width (RBC) [Ratio] 14.4 % Normal 11.6-14.6 [facility] Comment on above: Performed By: #### L 500.2500, L503.6005, L501.9100, L100.0100, L500.3400, L503.5510, L505.5000, L501.2450 ####[facility] [address] [place], [address] Hematocrit (Bld) [Volume fraction] 24.8 % Low 37-47 [facility] Comment on above: Performed By: #### L 500.2500, L503.6005, L501.9100, L100.0100, L500.3400, L503.5510, L505.5000, L501.2450 ####[facility] [address] [place], [address] Hemoglobin (Bld) [Mass/Vol] 8.0 g/dL Low 12.0-15.0 [facility] Comment on above: Performed By: #### L 500.2500, L503.6005, L501.9100, L100.0100, L500.3400, L503.5510, L505.5000, L501.2450 ####[facility] [address] [place], [address] IG% 2.700 High 0.0-0.9 [facility] Comment on above: Result Comment: IG% - Immature Granulocytes (promyelocytes, myelocytes andmetamyelocytes) > 1% indicates that a LEFT SHIFT is Present. Performed By: #### L 500.2500, L503.6005, L501.9100, L100.0100, L500.3400, L503.5510, L505.5000, L501.2450 ####[facility] [address] [place], [address] Lymphocytes/100 WBC (Bld) 13.6 % Low 19-41 [facility] Comment on above: Performed By: #### L 500.2500, L503.6005, L501.9100, L100.0100, L500.3400, L503.5510, L505.5000, L501.2450 ####[facility] [address] [place], [address] MCH (RBC) [Entitic mass] 29.2 pg Normal 27.0-32.0 [facility] Comment on above: Performed By: #### L 500.2500, L503.6005, L501.9100, L100.0100, L500.3400, L503.5510, L505.5000, L501.2450 ####[facility] [address] [place], [address] MCHC (RBC) [Mass/Vol] 32.3 g/dL Normal 32-36 [facility] Comment on above: Performed By: #### L 500.2500, L503.6005, L501.9100, L100.0100, L500.3400, L503.5510, L505.5000, L501.2450 ####[facility] [address] [place], [address] MCV (RBC) [Entitic vol] 90.5 fL Normal 81-99 [facility] Comment on above: Performed By: #### L 500.2500, L503.6005, L501.9100, L100.0100, L500.3400, L503.5510, L505.5000, L501.2450 ####[facility] [address] [place], [address] Monocytes/100 WBC (Bld) 7.8 % Normal 0-10 [facility] Comment on above: Performed By: #### L 500.2500, L503.6005, L501.9100, L100.0100, L500.3400, L503.5510, L505.5000, L501.2450 ####[facility] [address] [place], [address] Neutrophils/100 WBC (Bld) 71.6 % High 47-70 [facility] Comment on above: Performed By: #### L 500.2500, L503.6005, L501.9100, L100.0100, L500.3400, L503.5510, L505.5000, L501.2450 ####[facility] [address] [place], [address] Nucleated RBC (Bld) [#/Vol] 0 10*3/uL Normal 0-5 [facility] Comment on above: Performed By: #### L 500.2500, L503.6005, L501.9100, L100.0100, L500.3400, L503.5510, L505.5000, L501.2450 ####[facility] [address] [place], [address] Platelet mean volume (Bld) [Entitic vol] 10.3 fL Normal 6.2-12.0 [facility] Comment on above: Performed By: #### L 500.2500, L503.6005, L501.9100, L100.0100, L500.3400, L503.5510, L505.5000, L501.2450 ####[facility] [address] [place], [address] Platelets (Bld) [#/Vol] 336 10*3/uL Normal 150-450 [facility] Comment on above: Performed By: #### L 500.2500, L503.6005, L501.9100, L100.0100, L500.3400, L503.5510, L505.5000, L501.2450 ####[facility] [address] [place], [place], [phone]([phone]) RBC (Bld) [#/Vol] 2.74 10*6/uL Low 4.2-5.4 [facility] Comment on above: Performed By: #### L 500.2500, L503.6005, L501.9100, L100.0100, L500.3400, L503.5510, L505.5000, L501.2450 ####[facility] [address] [place], [place], [phone] RDW SD 47.2 fl High 35.1-43.9 [facility] Comment on above: Performed By: #### L 500.2500, L503.6005, L501.9100, L100.0100, L500.3400, L503.5510, L505.5000, L501.2450 ####[facility] [address] [place], [place], [phone] WBC (Bld) [#/Vol] 12.2 10*3/uL High 4.4-11.0 [facility] Comment on above: Performed By: #### L 500.2500, L503.6005, L501.9100, L100.0100, L500.3400, L503.5510, L505.5000, L501.2450 ####[facility] [address] [place], [place], [phone] Tyree 08-06-2024 MARIETTAN Telephone (INTMWS) LEYDA LOPEZ ([id number]) 1960 F Date Time Provider Department 08/06/24 VELVET PALACIO INTMWS During your visit today, we recorded the following information about you: Homa Martinez RN 08/06/2024 10:12 AM Signed Homa calling from [facility] to report plan of care for patient and care home will visit patient 1 time a week for 6 weeks. [facility] will work with patient on PICC line dressing changes and labs. Patient is getting IV Vancomycin [address] White from [facility] is following IV antibiotics and PICC line orders. Homa notes the following medication issues: Drug to Drug Interactions -Hydroxyzine and Potassium -Amitriptyline and Potassium 2. Duplicate Medication Therapies -Buspirone and Hydroxyzine -Amitriptyline and Lexapro -Lexapro and Trazodone 3. Patient reports that she is no longer taking Dexlansoprazole Patient does have hospital follow up visit scheduled with Dr. Palacio on 08/10/2024. Please review and Advise, RICARDO Mansfield Chitra, MD 08/07/2024 3:03 PM Signed Will address at follow up Will follow up home health Regards, Gustavo Daniel MD, RN 08/07/2024 4:42 PM Signed Called and left a detailed voicemail notifying Homa from [facility] of providers message. Clinic phone number was left in case she had any questions. Gustavo Wells RN Allergies As of Date: 08/06/2024 Noted Allergy Reaction AMLODIPINE 06/13/2023 14 - [...] MA - Fully Assessed Reason for Visit: Jail Plan of Care [Other] Medication Issues [Other] Order(s):nitroglycerin sublingual (NITROQUICK) 0.4 mg SL tabletDissolve 1 tablet under the tongue every 5 minutes as needed for chest pain.Disp: 20 tabletRfl: 1 Prescriptions as of 08/07/2024 - nitroglycerin sublingual (NITROQUICK) 0.4 mg SL tablet Dissolve 1 tablet under the tongue every 5 minutes as needed for chest pain. - SUMAtriptan (IMITREX) 50 mg tablet Take [...] fluticasone-salmeterol (ADVAIR, WIXELA) 250-50 mcg/dose inhaler INHALE (more content not included)... Normal [facility] Carbon dioxide, total [Moles /volume] in Central venous bloodOrdered By: Pito Lopez on 08-06-2024 CO2 [Moles/Vol] 27.3 mmol/L 21.0-32.0 [facility] Chloride assayOrdered By: Wendi Lopez on 08-06-2024 Chloride [Moles/Vol] 102 mmol/L 98-108 [facility] Culture, Blood (WB)on 2024 CUB No growth in 5 days. Normal [facility] Comment on above: Performed By: #### M 200.1000 ####[facility] [address] [place], [address] Emergency Department Summary on 08-06-2024 Emergency Department Summary Normal [facility] Eosinophil percentageOrdered By: Pito Lopez on 08-06-2024 Eosinophils/100 WBC (Bld) 3.9 % 0-5 [facility] Erythrocyte distribution wid th ratioOrdered By: Pito Lopez on 08-06-2024 Erythrocyte distribution width (RBC) [Ratio] 14.4 % 11.6-14.6 [facility] Erythrocyte distribution wid th standard deviationOrdered By: Pito Lopez on 08-06-2024 Erythrocyte distribution width (RBC) [Ratio] 47.2 fl High 35.1-43.9 [facility] Glomerular filtration rate ( GFR) estimation/1.73 sq m using serum, plasma, or whole bOrdered By: Pito Lopez on 08-06-2024 GFR/1.73 sq M.predicted among non-blacks MDRD (S/P/Bld) [Vol rate/Area] 51 mL/min/{1.73_m2} Low >60 [facility] Comment on above: mL/min/1.73m2 CKD-EP I Creatinine Equation (2020) Hematocrit Auto (Bld) [Volum e fraction]Ordered By: Pito Lopez on 08-06-2024 Hematocrit (Bld) [Volume fraction] 24.8 % Low 37-47 [facility] Hemoglobin measurementOrdere d By: Pito Lopez on 08-06-2024 Hemoglobin (Bld) [Mass/Vol] 8.0 g/dL Low 12.0-15.0 [facility] Immature granulocytes/100 WB C Auto (Bld)Ordered By: Pito Lopez on 08-06-2024 Immature granulocytes/100 WBC (Bld) 2.700 % High 0.0-0.9 [facility] Comment on above: IG% - Immature Granu locytes (promyelocytes, myelocytes and metamyelocytes) > 1% indicates that a LEFT SHIFT is Present. Laboratory - Chemistry and C hemistry - challengeOrdered By: Pito Lopez on 08-06-2024 AST [Catalytic activity/Vol] 20 U/L <32 [facility] Lactic Acidon 08-06-2024 Lactate [Moles/Vol] 1.0 mmol/L Normal 0.0-2.0 [facility] Comment on above: Order Comment: Y Performed By: #### L 500.2500, L503.6005, L501.9100, L100.0100, L500.3400, L503.5510, L505.5000, L501.2450 ####[facility] [address] [place], [place], [phone] Lactic acid measurementOrder ed By: Pito Lopez on 08-06-2024 Lactate [Moles/Vol] 1.0 mmol/L 0.0-2.0 [facility] Lipaseon 08-06-2024 Lipase [Catalytic activity/Vol] 32 U/L Normal 13-75 [facility] Comment on above: Result Comment: Stephanie guzman note:LIPASE revised reference range effective 22.New Lipase methodology. Expected to produce lower valuesthan the previous assay method.NEW Reference Range: 13 - 75 U/L Performed By: #### L 500.2500, L503.6005, L501.9100, L100.0100, L500.3400, L503.5510, L505.5000, L501.2450 ####[facility] [address] [place], [address](977) Lipase measurementOrdered By : Pito Lopez on 08-06-2024 Lipase [Catalytic activity/Vol] 32 U/L 13-75 [facility] Comment on above: Please note:LIPASE r evised reference range effective 22. New Lipase methodology. Expected to produce lower values than the previous assay method. NEW Reference Range: 13 - 75 U/L Liver Profileon 08-06-2024 Albumin [Mass/Vol] 2.8 g/dL Low 3.4-4.8 [facility] Comment on above: Performed By: #### L 500.2500, L503.6005, L501.9100, L100.0100, L500.3400, L503.5510, L505.5000, L501.2450 ####[facility] [address] [place], [place], [phone] PHOS 80 U/L Normal 35-104 [facility] Comment on above: Performed By: #### L 500.2500, L503.6005, L501.9100, L100.0100, L500.3400, L503.5510, L505.5000, L501.2450 ####[facility] [address] [place], [address] ALT [Catalytic activity/Vol] 17 U/L Normal <=34 [facility] Comment on above: Performed By: #### L 500.2500, L503.6005, L501.9100, L100.0100, L500.3400, L503.5510, L505.5000, L501.2450 ####[facility] [address] [place], [address] AST [Catalytic activity/Vol] 20 U/L Normal <=31 [facility] Comment on above: Performed By: #### L 500.2500, L503.6005, L501.9100, L100.0100, L500.3400, L503.5510, L505.5000, L501.2450 ####[facility] [address] [place], [address] Bilirubin [Mass/Vol] 0.32 mg/dL Normal 0.00-1.30 [facility] Comment on above: Performed By: #### L 500.2500, L503.6005, L501.9100, L100.0100, L500.3400, L503.5510, L505.5000, L501.2450 ####[facility] [address] [place], [place], [phone] Bilirubin.direct [Mass/Vol] 0.18 mg/dL Normal 0.00-0.30 [facility] Comment on above: Performed By: #### L 500.2500, L503.6005, L501.9100, L100.0100, L500.3400, L503.5510, L505.5000, L501.2450 ####[facility] [address] [place], [address] Globulin (S) [Mass/Vol] 3.1 g/dL Normal 2.2-4.2 [facility] Comment on above: Performed By: #### L 500.2500, L503.6005, L501.9100, L100.0100, L500.3400, L503.5510, L505.5000, L501.2450 ####[facility] [address] [place], [address] T PROT 5.9 g/dL Normal 5.9-8.4 [facility] Comment on above: Performed By: #### L 500.2500, L503.6005, L501.9100, L100.0100, L500.3400, L503.5510, L505.5000, L501.2450 ####[facility] [address] [place], [address] MCV (mean corpuscular volume ) determinationOrdered By: Pito Lopez on 08-06-2024 MCV (RBC) [Entitic vol] 90.5 fL 81-99 [facility] Mean corpuscular hemoglobin (MCH) determinationOrdered By: Pito Lopez on 08-06-2024 MCH (RBC) [Entitic mass] 29.2 pg 27.0-32.0 [facility] Mean corpuscular hemoglobin concentration (MCHC) determinationOrdered By: Pito Lopez on 08-06-2024 MCHC (RBC) [Mass/Vol] 32.3 g/dL 32-36 [facility] Mean platelet volume determi nationOrdered By: Pito Lopez on 08-06-2024 Platelet mean volume (Bld) [Entitic vol] 10.3 fL 6.2-12.0 [facility] Monocyte percentageOrdered B y: Pito Lopez on 08-06-2024 Monocytes/100 WBC (Bld) 7.8 % 0-10 [facility] Neutrophil percentageOrdered By: Pito Lopez on 08-06-2024 Neutrophils/100 WBC (Bld) 71.6 % High 47-70 [facility] No Panel InformationOrdered By: Pito Lopez on 08-06-2024 Urine Buprenorphine Qualitative Negative < 200 ng/mL [facility] Urine Oxycodone Screen Negative < 100 ng/mL [facility] Nucleated red blood cell per centageOrdered By: Pito Lopez on 08-06-2024 Nucleated RBC/100 WBC (Bld) [Ratio] 0 % 0-5 [facility] Platelet countOrdered By: Wendi Lopez on 08-06-2024 Platelets (Bld) [#/Vol] 336 10*3/uL 150-450 [facility] Potassium measurement (mass/ volume)Ordered By: Pito Lopez on 08-06-2024 Potassium (Unsp spec) [Mass/Vol] 3.0 mmol/L Low 3.3-5.1 [facility] Quantitative urine opiates m easurementOrdered By: Pito Lopez on 08-06-2024 Opiates Ql (U) Positive < 300 ng/mL [facility] Comment on above: If confirmation test ing is needed, a separate order will be required to send out testing to the reference laboratory. RBC Auto (Bld) [#/Vol]Ordere d By: Pito Lopez on 08-06-2024 RBC (Bld) [#/Vol] 2.74 10*6/uL Low 4.2-5.4 [facility] Screening urine fentanyl meliza surementOrdered By: Pito Lopez on 08-06-2024 fentaNYL Screen Ql (U) Negative [facility] Serum creatinine measurement (mass/volume)Ordered By: Pito Lopez on 08-06-2024 Creatinine [Mass/Vol] 1.19 mg/dL 0.70-1.20 [facility] Serum globulin measurementOr dered By: Pito Lopez on 08-06-2024 Globulin (S) [Mass/Vol] 3.1 g/dL 2.2-4.2 [facility] Serum glucose measurement (m ass/volume)Ordered By: Pito Lopez on 08-06-2024 Glucose [Mass/Vol] 143 mg/dL High 70-99 [facility] Serum or plasma alanine reyes otransferase (ALT) measurementOrdered By: Pito Lopez on 08-06-2024 ALT [Catalytic activity/Vol] 17 U/L <35 [facility] Serum or plasma albumin melo urement (mass/volume)Ordered By: Pito Lopez on 08-06-2024 Albumin [Mass/Vol] 2.8 g/dL Low 3.4-4.8 [facility] Serum or plasma alkaline raymond sphatase measurementOrdered By: Pito Lopez on 08-06-2024 ALP [Catalytic activity/Vol] 80 U/L 35-104 [facility] Serum or plasma calcium melo urement (mass/volume)Ordered By: Pito Lopez on 08-06-2024 Calcium [Mass/Vol] 8.0 mg/dL 7.6-11.0 [facility] Serum or plasma ethanol melo urement (mass/volume)Ordered By: Pito Lopez on 08-06-2024 Ethanol [Mass/Vol] mg/dL <10.1 [facility] Comment on above: This test is for med ical purposes only. The legal definition of intoxication varies according to local law. Serum or plasma urea nitroge n measurement (mass/volume)Ordered By: Pito Lopez on 08-06-2024 Urea nitrogen [Mass/Vol] 16 mg/dL 4-19 [facility] Sodium levelOrdered By: Yonas Lopez on 08-06-2024 Sodium [Moles/Vol] 141 mmol/L 133-145 [facility] Total proteinOrdered By: Angel Lopez on 08-06-2024 Protein [Mass/Vol] 5.9 g/dL 5.9-8.4 [facility] Urine Drug Screen (VISTA)on 08-06-2024 AMPHETAMINES Negative Normal <1000 ng/mL [facility] Comment on above: Performed By: #### L 500.2500, L503.6005, L501.9100, L100.0100, L500.3400, L503.5510, L505.5000, L501.2450 ####[facility] [address] [place], [address] BARBITIURATES Negative Normal < 200 ng/mL [facility] Comment on above: Performed By: #### L 500.2500, L503.6005, L501.9100, L100.0100, L500.3400, L503.5510, L505.5000, L501.2450 ####[facility] [address] [place], [address] BENZODIAZIPINE Negative Normal < 200 ng/mL [facility] Comment on above: Performed By: #### L 500.2500, L503.6005, L501.9100, L100.0100, L500.3400, L503.5510, L505.5000, L501.2450 ####[facility] [address] [place], [place], [phone] BUP Ur Drug Scr Negative Normal < 200 ng/mL [facility] Comment on above: Performed By: #### L 500.2500, L503.6005, L501.9100, L100.0100, L500.3400, L503.5510, L505.5000, L501.2450 ####[facility] [address] [place], [address] COCAINE Negative Normal < 300 ng/mL [facility] Comment on above: Performed By: #### L 500.2500, L503.6005, L501.9100, L100.0100, L500.3400, L503.5510, L505.5000, L501.2450 ####[facility] [address] [place], [place], [phone] Fentanyl Negative Normal [facility] Comment on above: Performed By: #### L 500.2500, L503.6005, L501.9100, L100.0100, L500.3400, L503.5510, L505.5000, L501.2450 ####[facility] [address] [place], [place], [phone] METHADONE Negative Normal < 300 ng/mL [facility] Comment on above: Performed By: #### L 500.2500, L503.6005, L501.9100, L100.0100, L500.3400, L503.5510, L505.5000, L501.2450 ####[facility] [address] [place], [address] OPIATES Positive Normal < 300 ng/mL [facility] Comment on above: Result Comment: If c onfirmation testing is needed, a separate order will berequired to send out testing to the reference laboratory. Performed By: #### L 500.2500, L503.6005, L501.9100, L100.0100, L500.3400, L503.5510, L505.5000, L501.2450 ####[facility] [address] [place], [place], [phone] OXYCODONE Negative Normal < 100 ng/mL [facility] Comment on above: Performed By: #### L 500.2500, L503.6005, L501.9100, L100.0100, L500.3400, L503.5510, L505.5000, L501.2450 ####[facility] [address] [place], [place], [phone](747) PCP Negative Normal < 25 ng/mL [facility] Comment on above: Performed By: #### L 500.2500, L503.6005, L501.9100, L100.0100, L500.3400, L503.5510, L505.5000, L501.2450 ####[facility] [address] [place], [place], [phone](256) THC Negative Normal < 50 ng/mL [facility] Comment on above: Performed By: #### L 500.2500, L503.6005, L501.9100, L100.0100, L500.3400, L503.5510, L505.5000, L501.2450 ####[facility] [address] [place], [place], [phone](227) Urine benzodiazepine levelOr dered By: Pito Lopez on 08-06-2024 Benzodiazepines Ql (U) Negative < 200 ng/mL [facility] Urine cocaine levelOrdered B y: Pito Lopez on 08-06-2024 Cocaine Ql (U) Negative < 300 ng/mL [facility] Urine doyyh-8-eaqzxcjimewowz abinol (THC) measurementOrdered By: Pito Lopez on 08-06-2024 Cannabinoids Screen Ql (U) Negative < 50 ng/mL [facility] Urine phencyclidine (PCP) de tectionOrdered By: Pito Lopez on 08-06-2024 Phencyclidine Ql (U) Negative < 25 ng/mL [facility] Venous blood ammonia measure mentOrdered By: Pito Lopez on 08-06-2024 Ammonia (P) [Moles/Vol] 13.6 umol/L 11-51 [facility] White blood cell (WBC) count Ordered By: Pito Lopez on 08-06-2024 WBC (Bld) [#/Vol] 12.2 10*3/uL High 4.4-11.0 [facility] CNPNon 08-05-2024 CNPN Telephone (INTMWS) LEYDA LOPEZ ([id number]) 1960 F Date Time Provider Department 08/05/24 VELVET PALACIO INTAMANDA During your visit today, we recorded the following information about you: Kellen Alexandra LPN 08/05/2024 8:23 AM Signed Barby from [facility] calling patient is currently admitted with small bowel obstruction, planning to discharge today with IV antibiotics. Dr Hurst will cover IV orders. Asking if PCP would follow and sign orders for the patient? Received orders for PT/OT. Please advise Velvet Palacio MD 08/05/2024 4:44 PM Signed Yes Velvet Wan MD, Beth, LPN 08/05/2024 4:51 PM Signed Phoned [facility] left detailed message with notes from Dr Palacio on voicemail for Barby. Allergies As of Date: 08/05/2024 Noted Allergy Reaction AMLODIPINE 06/13/2023 14 - [...] MA - Fully Assessed Reason for Visit: home health calling [Other] Prescriptions as of 08/05/2024 - SUMAtriptan (IMITREX) 50 mg tablet Take [...] in hospital Problem List As Of Date 08/05/2024 Noted Resolved Essential hypertension [I10] 03/22/2005 Moderate episode of recurrent major depressive *03/22/2005 PANIC DISORDER WITHOUT AGORAPHOBIA [F41.0] 03/22/2005 Asthma [J45.909] 03/22/2005 Hyperlipidemia [E78.5] ANEMIA BLOOD LOSS CHR (more content not included)... Normal [facility] Culture, Blood (WB)on 2024 CUB No growth in 5 days. Normal [facility] Comment on above: Performed By: #### M 200.1000 ####[facility] [address] [place], [address] Absolute lymphocyte countOrd ered By: Dolly Daniels on 08-04-2024 Lymphocytes Auto (Unsp spec) [#/Vol] 1.48 10*3/uL 0.83-4.51 [facility] Absolute neutrophil countOrd ered By: Dolly Daniels on 08-04-2024 Neutrophils (Bld) [#/Vol] 9.6 10*3/uL High 2.0-7.7 [facility] Anion gap in Serum or Plasma Ordered By: Dolly Daniels on 08-04-2024 Anion gap [Moles/Vol] 14 mmol/L 5-15 [facility] Automated lymphocyte count a s percentage of total leukocytesOrdered By: Dolly Daniels on 08-04-2024 Lymphocytes/100 WBC Auto (Unsp spec) 12.2 % Low 19-41 [facility] BUN/creatinine ratioOrdered By: Dolly Daniels on 08-04-2024 Urea nitrogen/Creatinine [Mass ratio] 19.5 mg/mg 10-20 [facility] Basic Metabolic Profile (BMP )on 08-04-2024 BUN/CRE 19.5 RATIO Normal 10-20 [facility] Comment on above: Performed By: #### L 500.2500, L100.0100 ####[facility] [address] [place], [address] Calcium [Mass/Vol] 8.3 mg/dL Normal 7.6-11.0 [facility] Comment on above: Performed By: #### L 500.2500, L100.0100 ####[facility] [address] [place], [address] Chloride [Moles/Vol] 104 mmol/L Normal 98-108 [facility] Comment on above: Performed By: #### L 500.2500, L100.0100 ####[facility] [address] [place], [address] CO2 [Moles/Vol] 24.4 mmol/L Normal 21.0-32.0 [facility] Comment on above: Performed By: #### L 500.2500, L100.0100 ####[facility] [address] [place], [address] Creatinine [Mass/Vol] 1.12 mg/dL Normal 0.70-1.20 [facility] Comment on above: Performed By: #### L 500.2500, L100.0100 ####[facility] [address] [place], [address] ECRCL 43.13 ml/min Low 50-250 [facility] Comment on above: Performed By: #### L 500.2500, L100.0100 ####[facility] [address] [place], [address] GAP 14 Normal 5-15 [facility] Comment on above: Performed By: #### L 500.2500, L100.0100 ####[facility] [address] [place], [address] GFR/1.73 sq M.predicted among non-blacks MDRD (S/P/Bld) [Vol rate/Area] 55 mL/min/{1.73_m2} Low >60 [facility] Comment on above: Result Comment: mL/m in/1.73m2 CKD-EPI Creatinine Equation (2020) Performed By: #### L 500.2500, L100.0100 ####[facility] [address] [place], [address] Glucose [Mass/Vol] 111 mg/dL High 70-99 [facility] Comment on above: Performed By: #### L 500.2500, L100.0100 ####[facility] [address] [place], [address] Potassium [Moles/Vol] 3.2 mmol/L Low 3.3-5.1 [facility] Comment on above: Performed By: #### L 500.2500, L100.0100 ####[facility] [address] [place], [address] Sodium [Moles/Vol] 142 mmol/L Normal 133-145 [facility] Comment on above: Performed By: #### L 500.2500, L100.0100 ####[facility] [address] [place], [address] Urea nitrogen [Mass/Vol] 22 mg/dL High 4-19 [facility] Comment on above: Performed By: #### L 500.2500, L100.0100 ####[facility] [address] [place], [address] Basophil percentageOrdered B y: Dolly Andersonzenobia on 08-04-2024 Basophils/100 WBC (Bld) 0.2 % 0-1 [facility] CBC W/Diff, Automatedon Absolute Lymph 1.48 X10 3/uL Normal 0.83-4.51 [facility] Comment on above: Performed By: #### L 500.2500, L100.0100 ####[facility] [address] [place], [address] Absolute Neut 9.6 X10 3/uL High 2.0-7.7 [facility] Comment on above: Performed By: #### L 500.2500, L100.0100 ####[facility] [address] [place], [address] Basophils/100 WBC (Bld) 0.2 % Normal 0-1 [facility] Comment on above: Performed By: #### L 500.2500, L100.0100 ####[facility] [address] [place], [address] Eosinophils/100 WBC (Bld) 1.5 % Normal 0-5 [facility] Comment on above: Performed By: #### L 500.2500, L100.0100 ####[facility] [address] [place], [address] Erythrocyte distribution width (RBC) [Ratio] 13.9 % Normal 11.6-14.6 [facility] Comment on above: Performed By: #### L 500.2500, L100.0100 ####[facility] [address] [place], [address] Hematocrit (Bld) [Volume fraction] 25.5 % Low 37-47 [facility] Comment on above: Performed By: #### L 500.2500, L100.0100 ####[facility] [address] [place], [address] Hemoglobin (Bld) [Mass/Vol] 8.3 g/dL Low 12.0-15.0 [facility] Comment on above: Performed By: #### L 500.2500, L100.0100 ####[facility] [address] [place], [address] IG% 1.300 High 0.0-0.9 [facility] Comment on above: Result Comment: IG% - Immature Granulocytes (promyelocytes, myelocytes andmetamyelocytes) > 1% indicates that a LEFT SHIFT is Present. Performed By: #### L 500.2500, L100.0100 ####[facility] [address] [place], [address] Lymphocytes/100 WBC (Bld) 12.2 % Low 19-41 [facility] Comment on above: Performed By: #### L 500.2500, L100.0100 ####[facility] [address] [place], [address] MCH (RBC) [Entitic mass] 29.0 pg Normal 27.0-32.0 [facility] Comment on above: Performed By: #### L 500.2500, L100.0100 ####[facility] [address] [place], [address] MCHC (RBC) [Mass/Vol] 32.5 g/dL Normal 32-36 [facility] Comment on above: Performed By: #### L 500.2500, L100.0100 ####[facility] [address] [place], [address] MCV (RBC) [Entitic vol] 89.2 fL Normal 81-99 [facility] Comment on above: Performed By: #### L 500.2500, L100.0100 ####[facility] [address] [place], [address] Monocytes/100 WBC (Bld) 6.2 % Normal 0-10 [facility] Comment on above: Performed By: #### L 500.2500, L100.0100 ####[facility] [address] [place], [address] Neutrophils/100 WBC (Bld) 78.6 % High 47-70 [facility] Comment on above: Performed By: #### L 500.2500, L100.0100 ####[facility] [address] [place], [address] Nucleated RBC (Bld) [#/Vol] 0 10*3/uL Normal 0-5 [facility] Comment on above: Performed By: #### L 500.2500, L100.0100 ####[facility] [address] [place], [address] Platelet mean volume (Bld) [Entitic vol] 10.5 fL Normal 6.2-12.0 [facility] Comment on above: Performed By: #### L 500.2500, L100.0100 ####[facility] [address] [place], [address] Platelets (Bld) [#/Vol] 341 10*3/uL Normal 150-450 [facility] Comment on above: Performed By: #### L 500.2500, L100.0100 ####[facility] [address] [place], [address] RBC (Bld) [#/Vol] 2.86 10*6/uL Low 4.2-5.4 [facility] Comment on above: Performed By: #### L 500.2500, L100.0100 ####[facility] [address] [place], [address] RDW SD 45.8 fl High 35.1-43.9 [facility] Comment on above: Performed By: #### L 500.2500, L100.0100 ####[facility] [address] [place], [address] WBC (Bld) [#/Vol] 12.2 10*3/uL High 4.4-11.0 [facility] Comment on above: Performed By: #### L 500.2500, L100.0100 ####[facility] [address] [place], [address] Carbon dioxide, total [Moles /volume] in Central venous bloodOrdered By: Dolly Daniels on 08-04-2024 CO2 [Moles/Vol] 24.4 mmol/L 21.0-32.0 [facility] Chloride assayOrdered By: Sarah Daniels on 08-04-2024 Chloride [Moles/Vol] 104 mmol/L 98-108 [facility] Electrocardiogram reportOrde red By: Fareed Maxwell on 08-04-2024 EKG study [facility] [address] [place] [address] 12 Lead EKG 08/01/24 1301 MR#: [id number] Acct: [id number] Name: LEYDA LOPEZ Rep #:[id number] : 1960 63 From: Fareed hernandez MD Attending Dr: Dr. Linwood Joe DO Status: ADM IN Ordering Dr: Sid Hillman MD Date: 0 08/01/24 Location: [facility] Sex: F C Admitted: 07/26/24 Test Reason [...] change was found Confirmed by Fareed Maxwell ([id number]), graphics editor GUSTAVO VICENTE ([id number]) on 08/04/2024 8:05:33 AM Referred By: RAFY Confirmed By: Fareed Maxwell 08/04/2405 Date _ Fareed Maxwell MD CC: SHMUEL RICE; Dr. Linwood Joe DO; Dr. Sid Hillman MD ~ Signed [facility] Other Phone: Eosinophil percentageOrdered By: Dolly Daniels on 08-04-2024 Eosinophils/100 WBC (Bld) 1.5 % 0-5 [facility] Erythrocyte distribution wid th ratioOrdered By: Dolly Daniels on 08-04-2024 Erythrocyte distribution width (RBC) [Ratio] 13.9 % 11.6-14.6 [facility] Erythrocyte distribution wid th standard deviationOrdered By: Dolly Daniels on 08-04-2024 Erythrocyte distribution width (RBC) [Ratio] 45.8 fl High 35.1-43.9 [facility] Glomerular filtration rate ( GFR) estimation/1.73 sq m using serum, plasma, or whole bOrdered By: Dolly Daniels on 08-04-2024 GFR/1.73 sq M.predicted among non-blacks MDRD (S/P/Bld) [Vol rate/Area] 55 mL/min/{1.73_m2} Low >60 [facility] Comment on above: mL/min/1.73m2 CKD-EP I Creatinine Equation (2020) Hematocrit Auto (Bld) [Volum e fraction]Ordered By: Dolly Daniels on 08-04-2024 Hematocrit (Bld) [Volume fraction] 25.5 % Low 37-47 [facility] Hemoglobin measurementOrdere d By: Dolly Daniels on 08-04-2024 Hemoglobin (Bld) [Mass/Vol] 8.3 g/dL Low 12.0-15.0 [facility] Immature granulocytes/100 WB C Auto (Bld)Ordered By: Dolly Daniels on 08-04-2024 Immature granulocytes/100 WBC (Bld) 1.300 % High 0.0-0.9 [facility] Comment on above: IG% - Immature Granu locytes (promyelocytes, myelocytes and metamyelocytes) > 1% indicates that a LEFT SHIFT is Present. MCV (mean corpuscular volume ) determinationOrdered By: Dolly Daniels on 08-04-2024 MCV (RBC) [Entitic vol] 89.2 fL 81-99 [facility] Mean corpuscular hemoglobin (MCH) determinationOrdered By: Dolly Daniels on 08-04-2024 MCH (RBC) [Entitic mass] 29.0 pg 27.0-32.0 [facility] Mean corpuscular hemoglobin concentration (MCHC) determinationOrdered By: Dolly Daniels on 08-04-2024 MCHC (RBC) [Mass/Vol] 32.5 g/dL 32-36 [facility] Mean platelet volume determi nationOrdered By: Dolly Daniels on 08-04-2024 Platelet mean volume (Bld) [Entitic vol] 10.5 fL 6.2-12.0 [facility] Monocyte percentageOrdered B y: Dolly Daniels on 08-04-2024 Monocytes/100 WBC (Bld) 6.2 % 0-10 [facility] Neutrophil percentageOrdered By: Dolly Daniels on 08-04-2024 Neutrophils/100 WBC (Bld) 78.6 % High 47-70 [facility] Nucleated red blood cell per centageOrdered By: Dolly Daniels on 08-04-2024 Nucleated RBC/100 WBC (Bld) [Ratio] 0 % 0-5 [facility] Platelet countOrdered By: Sarah Daniels on 08-04-2024 Platelets (Bld) [#/Vol] 341 10*3/uL 150-450 [facility] Potassium measurement (mass/ volume)Ordered By: Dolly Daniels on 08-04-2024 Potassium (Unsp spec) [Mass/Vol] 3.2 mmol/L Low 3.3-5.1 [facility] RBC Auto (Bld) [#/Vol]Ordere d By: Dolly Daniels on 08-04-2024 RBC (Bld) [#/Vol] 2.86 10*6/uL Low 4.2-5.4 [facility] Serum creatinine measurement (mass/volume)Ordered By: Dolly Daniels on 08-04-2024 Creatinine [Mass/Vol] 1.12 mg/dL 0.70-1.20 [facility] Serum glucose measurement (m ass/volume)Ordered By: Dolly Daniels on 08-04-2024 Glucose [Mass/Vol] 111 mg/dL High 70-99 [facility] Serum or plasma calcium melo urement (mass/volume)Ordered By: Dolly Daniels on 08-04-2024 Calcium [Mass/Vol] 8.3 mg/dL 7.6-11.0 [facility] Serum or plasma urea nitroge n measurement (mass/volume)Ordered By: Dolly Daniels on 08-04-2024 Urea nitrogen [Mass/Vol] 22 mg/dL High 4-19 [facility] Sodium levelOrdered By: Dolly Daniels on 08-04-2024 Sodium [Moles/Vol] 142 mmol/L 133-145 [facility] Trough vancomycin levelOrder ed By: Linwood Joe on 08-04-2024 Vancomycin trough [Mass/Vol] 17.2 ug/mL High 5.0-15.0 [facility] Comment on above: Recommended goal tro ugh ranges are generally 10-15 mcg/ml for less severe/complicated infections such as cellulitis or UTI and 15-20 mcg/ml for more severe/complicated infections such as bacteremia/sepsis, osteomyelitis, pneumonia or meningitis. Goal trough ranges should take into account indication, patient-specific factors and organism FLO.VANCOMYCIN STANDARED DRUG THERAPY TROUGH LEVEL: 5.0 - 15.0 mg/L VANCOMYCIN HIGH INTENSITY THERAPY TROUGH LEVEL: 15.0 - 20.0 mg/L High Intensity therapy recommended for serious lifethreatening infections include:- Ijocunyyjn-Romiacchwrxp-Kthomocmk (Ventilator/Healtcare Associated)-Sepsis PLEASE CONTACT PHARMACY SERVICES (#2561) FOR INTERPRETATIONOF RESULTS. Vancomycin, Trough Levelon 0 08-04-2024 VANCO, TROUGH 17.2 ug/mL High 5.0-15.0 [facility] Comment on above: Order Comment: Comme nts: Trough to be drawn 30 mins prior to scheduled [id number] Result Comment: Robin mmended goal trough ranges are generally 10-15 mcg/mlfor less severe/complicated infections such as cellulitisor UTI and 15-20 mcg/ml for more severe/complicatedinfections such as bacteremia/sepsis, osteomyelitis,pneumonia or meningitis. Goal trough ranges should takeinto account indication, patient-specific factors andorganism FLO.VANCOMYCIN STANDARED DRUG THERAPY TROUGH LEVEL: 5.0 - 15.0 mg/LVANCOMYCIN HIGH INTENSITY THERAPY TROUGH LEVEL: 15.0 - 20.0 mg/LHigh Intensity therapy recommended for serious lifethreatening infections include:- Ezlllpbtyc-Bkfytuavctwp-Aqgldddmx (Ventilator/Healtcare Associated)-SepsisPLEASE CONTACT PHARMACY SERVICES (#0729) FOR INTERPRETATIONOF RESULTS. Performed By: #### L 501.8820 ####[facility] [address] [place], [address] White blood cell (WBC) count Ordered By: Dolly Daniels on 08-04-2024 WBC (Bld) [#/Vol] 12.2 10*3/uL High 4.4-11.0 [facility] Basic Metabolic Profile (BMP )on 08-03-2024 BUN/CRE 21.5 RATIO High 10-20 [facility] Comment on above: Performed By: #### L 500.2500, L100.0100 ####[facility] [address] [place], [address] Calcium [Mass/Vol] 8.3 mg/dL Normal 7.6-11.0 [facility] Comment on above: Performed By: #### L 500.2500, L100.0100 ####[facility] [address] [place], [address] Chloride [Moles/Vol] 108 mmol/L Normal 98-108 [facility] Comment on above: Performed By: #### L 500.2500, L100.0100 ####[facility] [address] [place], [address] CO2 [Moles/Vol] 22.6 mmol/L Normal 21.0-32.0 [facility] Comment on above: Performed By: #### L 500.2500, L100.0100 ####[facility] [address] [place], [address] Creatinine [Mass/Vol] 1.20 mg/dL Normal 0.70-1.20 [facility] Comment on above: Performed By: #### L 500.2500, L100.0100 ####[facility] [address] [place], [address] ECRCL 40.25 ml/min Low 50-250 [facility] Comment on above: Performed By: #### L 500.2500, L100.0100 ####[facility] [address] [place], [address] GAP 10 Normal 5-15 [facility] Comment on above: Performed By: #### L 500.2500, L100.0100 ####[facility] [address] [place], [address] GFR/1.73 sq M.predicted among non-blacks MDRD (S/P/Bld) [Vol rate/Area] 51 mL/min/{1.73_m2} Low >60 [facility] Comment on above: Result Comment: mL/m in/1.73m2 CKD-EPI Creatinine Equation (2020) Performed By: #### L 500.2500, L100.0100 ####[facility] [address] [place], [address] Glucose [Mass/Vol] 143 mg/dL High 70-99 [facility] Comment on above: Performed By: #### L 500.2500, L100.0100 ####[facility] [address] [place], [address] Potassium [Moles/Vol] 3.8 mmol/L Normal 3.3-5.1 [facility] Comment on above: Performed By: #### L 500.2500, L100.0100 ####[facility] [address] [place], [address] Sodium [Moles/Vol] 141 mmol/L Normal 133-145 [facility] Comment on above: Performed By: #### L 500.2500, L100.0100 ####[facility] [address] [place], [address] Urea nitrogen [Mass/Vol] 26 mg/dL High 4-19 [facility] Comment on above: Performed By: #### L 500.2500, L100.0100 ####[facility] [address] [place], [address] CBC W/Diff, Automatedon 06-0 2-5 Absolute Lymph 1.30 X10 3/uL Normal 0.83-4.51 [facility] Comment on above: Performed By: #### L 500.2500, L100.0100 ####[facility] [address] [place], [address] Absolute Neut 7.7 X10 3/uL Normal 2.0-7.7 [facility] Comment on above: Performed By: #### L 500.2500, L100.0100 ####[facility] [address] [place], [address] Basophils/100 WBC (Bld) 0.0 % Normal 0-1 [facility] Comment on above: Performed By: #### L 500.2500, L100.0100 ####[facility] [address] [place], [address] Eosinophils/100 WBC (Bld) 0.1 % Normal 0-5 [facility] Comment on above: Performed By: #### L 500.2500, L100.0100 ####[facility] [address] [place], [address] Erythrocyte distribution width (RBC) [Ratio] 14.3 % Normal 11.6-14.6 [facility] Comment on above: Performed By: #### L 500.2500, L100.0100 ####[facility] [address] [place], [address] Hematocrit (Bld) [Volume fraction] 22.9 % Low 37-47 [facility] Comment on above: Performed By: #### L 500.2500, L100.0100 ####[facility] [address] [place], [address] Hemoglobin (Bld) [Mass/Vol] 7.4 g/dL Low 12.0-15.0 [facility] Comment on above: Performed By: #### L 500.2500, L100.0100 ####[facility] [address] [place], [address] IG% 0.900 Normal 0.0-0.9 [facility] Comment on above: Result Comment: IG% - Immature Granulocytes (promyelocytes, myelocytes andmetamyelocytes) > 1% indicates that a LEFT SHIFT is Present. Performed By: #### L 500.2500, L100.0100 ####[facility] [address] [place], [address] Lymphocytes/100 WBC (Bld) 13.4 % Low 19-41 [facility] Comment on above: Performed By: #### L 500.2500, L100.0100 ####[facility] [address] [place], [address] MCH (RBC) [Entitic mass] 29.0 pg Normal 27.0-32.0 [facility] Comment on above: Performed By: #### L 500.2500, L100.0100 ####[facility] [address] [place], [address] MCHC (RBC) [Mass/Vol] 32.3 g/dL Normal 32-36 [facility] Comment on above: Performed By: #### L 500.2500, L100.0100 ####[facility] [address] [place], [address] MCV (RBC) [Entitic vol] 89.8 fL Normal 81-99 [facility] Comment on above: Performed By: #### L 500.2500, L100.0100 ####[facility] [address] [place], [address] Monocytes/100 WBC (Bld) 7.0 % Normal 0-10 [facility] Comment on above: Performed By: #### L 500.2500, L100.0100 ####[facility] [address] [place], [address] Neutrophils/100 WBC (Bld) 78.6 % High 47-70 [facility] Comment on above: Performed By: #### L 500.2500, L100.0100 ####[facility] [address] [place], [address] Nucleated RBC (Bld) [#/Vol] 0.2 10*3/uL Normal 0-5 [facility] Comment on above: Performed By: #### L 500.2500, L100.0100 ####[facility] [address] [place], [address] Platelet mean volume (Bld) [Entitic vol] 10.5 fL Normal 6.2-12.0 [facility] Comment on above: Performed By: #### L 500.2500, L100.0100 ####[facility] [address] [place], [address] Platelets (Bld) [#/Vol] 250 10*3/uL Normal 150-450 [facility] Comment on above: Performed By: #### L 500.2500, L100.0100 ####[facility] [address] [place], [address] RBC (Bld) [#/Vol] 2.55 10*6/uL Low 4.2-5.4 [facility] Comment on above: Performed By: #### L 500.2500, L100.0100 ####[facility] [address] [place], [address] RDW SD 46.9 fl High 35.1-43.9 [facility] Comment on above: Performed By: #### L 500.2500, L100.0100 ####[facility] [address] [place], [address] WBC (Bld) [#/Vol] 9.7 10*3/uL Normal 4.4-11.0 [facility] Comment on above: Performed By: #### L 500.2500, L100.0100 ####[facility] [address] [place], [address] Serum or plasma vancomycin m easurement (mass/volume)Ordered By: Dolly Daniels on 08-03-2024 Vancomycin [Mass/Vol] 18.2 ug/mL High 0.0-15.0 [facility] Comment on above: VANCOMYCIN STANDARD DRUG THERAPY: CRITICAL VALUE IS > 15.0 mg/L VANCOMYCIN HIGH INTENSITY THERAPY: CRITICAL VALUE IS > 20.0 mg/L PLEASE CONTACT PHARMACY SERVICES (#6001) FOR INTERPRETATIONOF RESULTS. THIS RESULT DOES NOT REPRESENT A PEAK OR TROUGHLEVEL FOR THIS DRUG. Vancomycin, Random Levelon 0 08-03-2024 VANCO, RANDOM 18.2 ug/mL High 0.0-15.0 [facility] Comment on above: Result Comment: VANC OMYCIN STANDARD DRUG THERAPY: CRITICAL VALUE IS > 15.0 mg/LVANCOMYCIN HIGH INTENSITY THERAPY: CRITICAL VALUE IS > 20.0 mg/LPLEASE CONTACT PHARMACY SERVICES (#7296) FOR INTERPRETATIONOF RESULTS. THIS RESULT DOES NOT REPRESENT A PEAK OR TROUGHLEVEL FOR THIS DRUG. Performed By: #### L 501.8850 ####[facility] [address] [place], [place], [address] Vancomycin, Trough Levelon 0 08-03-2024 VANCO, TROUGH 20.5 ug/mL High 5.0-15.0 [facility] Comment on above: Order Comment: Comme nts: Trough to be drawn 30 mins prior to scheduled [id number] Result Comment: Robin mmended goal trough ranges are generally 10-15 mcg/mlfor less severe/complicated infections such as cellulitisor UTI and 15-20 mcg/ml for more severe/complicatedinfections such as bacteremia/sepsis, osteomyelitis,pneumonia or meningitis. Goal trough ranges should takeinto account indication, patient-specific factors andorganism FLO.VANCOMYCIN STANDARED DRUG THERAPY TROUGH LEVEL: 5.0 - 15.0 mg/LVANCOMYCIN HIGH INTENSITY THERAPY TROUGH LEVEL: 15.0 - 20.0 mg/LHigh Intensity therapy recommended for serious lifethreatening infections include:- Prrqkqnkep-Xenrpgubsrap-Bebjjlzfi (Ventilator/Healtcare Associated)-SepsisPLEASE CONTACT PHARMACY SERVICES (#9843) FOR INTERPRETATIONOF RESULTS. Performed By: #### L 501.8820 ####[facility] [address] [place], [place], [address] Venous duplex ultrasound rep ortOrdered By: Demetri Monson on 08-03-2024 [facility] [address] [place] [address] Venous Duplex US - Sidney Extrem 08/03/24 1318 MR#: [id number] Acct: [id number] Name: LEYDA LOPEZ Joann Rep #:[id number] : 1960 63 From: Demetri Monson MD Attending Dr: Dr. Linwood Joe, DO Status: ADM IN Ordering Dr: Sid Hillman MD Date: 0 08/01/24 Location: PCU Sex: F C Admitted: [...] Arm Right radial vein is compressible. Left axillaryvein is spontaneous, patent, phasic, Right ulnar vein is compressible. competent, compressible and demonstrates Right Arm augmentation. Right axillary vein is spontaneous, patent, phasic, Left brachialvein is compressible. competent, compressible and demonstrates Left cephalicvein is compressible. augmentation. Basilic vein is compressible, [...] Hillman Referring Physician: Dali Rice Performed By: Willinger, Evelin, RVT ??? 08/03/242158 Date _ Demetri Monson MD CC: SHMUEL RICE; Dr. Linwood Joe DO; Dr. Sid Hillman MD ~ Date Dictated: 08/03/248 Date Transcribed: 08/03/242158 Coil Builder: Signed [facility] Other Phone: Basic Metabolic Profile (BMP )on 08-02-2024 BUN/CRE 13.9 RATIO Normal 10-20 [facility] Comment on above: Performed By: #### L 500.2500, L100.0100 ####[facility] [address] [place], [address] Calcium [Mass/Vol] 8.3 mg/dL Normal 7.6-11.0 [facility] Comment on above: Performed By: #### L 500.2500, L100.0100 ####[facility] [address] [place], [address] Chloride [Moles/Vol] 108 mmol/L Normal 98-108 [facility] Comment on above: Performed By: #### L 500.2500, L100.0100 ####[facility] [address] [place], [address] CO2 [Moles/Vol] 20.8 mmol/L Low 21.0-32.0 [facility] Comment on above: Performed By: #### L 500.2500, L100.0100 ####[facility] [address] [place], [address] Creatinine [Mass/Vol] 1.32 mg/dL High 0.70-1.20 [facility] Comment on above: Performed By: #### L 500.2500, L100.0100 ####[facility] [address] [place], [address] ECRCL 36.60 ml/min Low 50-250 [facility] Comment on above: Performed By: #### L 500.2500, L100.0100 ####[facility] [address] [place], [address] GAP 14 Normal 5-15 [facility] Comment on above: Performed By: #### L 500.2500, L100.0100 ####[facility] [address] [place], [address] GFR/1.73 sq M.predicted among non-blacks MDRD (S/P/Bld) [Vol rate/Area] 45 mL/min/{1.73_m2} Low >60 [facility] Comment on above: Result Comment: mL/m in/1.73m2 CKD-EPI Creatinine Equation (2020) Performed By: #### L 500.2500, L100.0100 ####[facility] [address] [place], [address] Glucose [Mass/Vol] 170 mg/dL High 70-99 [facility] Comment on above: Performed By: #### L 500.2500, L100.0100 ####[facility] [address] [place], [address] Potassium [Moles/Vol] 3.1 mmol/L Low 3.3-5.1 [facility] Comment on above: Performed By: #### L 500.2500, L100.0100 ####[facility] [address] [place], [address] Sodium [Moles/Vol] 143 mmol/L Normal 133-145 [facility] Comment on above: Performed By: #### L 500.2500, L100.0100 ####[facility] [address] [place], [address] Urea nitrogen [Mass/Vol] 18 mg/dL Normal 4-19 [facility] Comment on above: Performed By: #### L 500.2500, L100.0100 ####[facility] [address] [place], [address] Blood manual differential co mment interpretation (narrative result)Ordered By: Dolly Daniels on 08-02-2024 Manual differential comment Jameel (Bld) [Interp] See comment [facility] Comment on above: AUTO DIFF OK CBC W/Diff, Automatedon 06-0 SMEAR COMMENT Normal [facility] Comment on above: Result Comment: AUTO DIFF OK Performed By: #### L 500.2500, L100.0100 ####[facility] [address] [place], [address] 12 Lead EKGon 08-01-2024 12 Lead EKG Normal [facility] Assessment of wrist artery p atency prior to arterial punctureOrdered By: Sid Hillman on 08-01-2024 Arterial patency Wrist artery --pre arterial puncture Positive [facility] Basic Metabolic Profile (BMP )on 08-01-2024 BUN/CRE 12.6 RATIO Normal 10-20 [facility] Comment on above: Performed By: #### L 500.2500, L100.0100 ####[facility] [address] [place], [address] Calcium [Mass/Vol] 7.3 mg/dL Low 7.6-11.0 [facility] Comment on above: Performed By: #### L 500.2500, L100.0100 ####[facility] [address] [place], [address] Chloride [Moles/Vol] 110 mmol/L High 98-108 [facility] Comment on above: Performed By: #### L 500.2500, L100.0100 ####[facility] [address] [place], [address] CO2 [Moles/Vol] 20.6 mmol/L Low 21.0-32.0 [facility] Comment on above: Performed By: #### L 500.2500, L100.0100 ####[facility] [address] [place], [address] Creatinine [Mass/Vol] 1.29 mg/dL High 0.70-1.20 [facility] Comment on above: Performed By: #### L 500.2500, L100.0100 ####[facility] [address] [place], [address] ECRCL 37.45 ml/min Low 50-250 [facility] Comment on above: Performed By: #### L 500.2500, L100.0100 ####[facility] [address] [place], [address] GAP 13 Normal 5-15 [facility] Comment on above: Performed By: #### L 500.2500, L100.0100 ####[facility] [address] [place], [address] GFR/1.73 sq M.predicted among non-blacks MDRD (S/P/Bld) [Vol rate/Area] 47 mL/min/{1.73_m2} Low >60 [facility] Comment on above: Result Comment: mL/m in/1.73m2 CKD-EPI Creatinine Equation (2020) Performed By: #### L 500.2500, L100.0100 ####[facility] [address] [place], [address] Glucose [Mass/Vol] 142 mg/dL High 70-99 [facility] Comment on above: Performed By: #### L 500.2500, L100.0100 ####[facility] [address] [place], [address] Potassium [Moles/Vol] 3.3 mmol/L Normal 3.3-5.1 [facility] Comment on above: Performed By: #### L 500.2500, L100.0100 ####[facility] [address] [place], [address] Sodium [Moles/Vol] 143 mmol/L Normal 133-145 [facility] Comment on above: Performed By: #### L 500.2500, L100.0100 ####[facility] [address] [place], [address] Urea nitrogen [Mass/Vol] 16 mg/dL Normal 4-19 [facility] Comment on above: Performed By: #### L 500.2500, L100.0100 ####[facility] [address] [place], [address] Blood Gases by [facility] 025 CARRIE TEST Positive Normal [facility] Comment on above: Performed By: #### L 9000.0800 ####[facility] [address] [place], [address] Base excess Calc (Bld) [Moles/Vol] 1 mmol/L Normal -2 to +2 [facility] Comment on above: Performed By: #### L 9000.0800 ####[facility] [address] [place], [address] Blood Gas Type ART Normal [facility] Comment on above: Performed By: #### L 9000.0800 ####[facility] [address] [place], [address] CO2 [Moles/Vol] 26 mmol/L Normal [facility] Comment on above: Performed By: #### L 9000.0800 ####[facility] [address] [place], [address] FI02 3.0 Normal [facility] Comment on above: Performed By: #### L 9000.0800 ####[facility] [address] [place], [address] HCO3 (Bld) [Moles/Vol] 24.9 mmol/L Normal 22-26 [facility] Comment on above: Performed By: #### L 9000.0800 ####[facility] [address] [place], [address] Mode Not entered Normal [facility] Comment on above: Performed By: #### L 9000.0800 ####[facility] [address] [place], [address] O2 Delivery Dev Cannula Normal [facility] Comment on above: Performed By: #### L 9000.0800 ####[facility] [address] [place], [address] pCO2 33.1 mmHg Low 35-45 [facility] Comment on above: Performed By: #### L 9000.0800 ####[facility] [address] [place], [address] pH (Bld) 7.48 [pH] High 7.35-7.45 [facility] Comment on above: Performed By: #### L 9000.0800 ####[facility] [address] [place], [address] PO2 90 mmHG Normal 75-100 [facility] Comment on above: Performed By: #### L 9000.0800 ####[facility] [address] [place], [address] SITE R Brach Normal [facility] Comment on above: Performed By: #### L 9000.0800 ####[facility] [address] [place], [address] SO2 98 Normal 95-99 [facility] Comment on above: Performed By: #### L 9000.0800 ####[facility] [address] [place], [address] Blood base excess determinat ionOrdered By: Sid Hillman on 08-01-2024 Base excess Calc (BldV) [Moles/Vol] 1 mmol/L -2-2 [facility] Blood bicarbonate measuremen tOrdered By: Sid Hillman on 08-01-2024 HCO3 (Bld) [Moles/Vol] 24.9 mmol/L 22-26 [facility] Blood cultureOrdered By: Tony White on 08-01-2024 Bacteria identified Cx Nom (Bld) No growth in 5 days. [facility] CBC W/Diff, Automatedon 07-04 ATYPICAL LYMPH RARE Normal [facility] Comment on above: Performed By: #### L 500.2500, L100.0100 ####[facility] [address] [place], [address] SMEAR COMMENT SCANNED Normal [facility] Comment on above: Performed By: #### L 500.2500, L100.0100 ####[facility] [address] [place], [address] CRPon 08-01-2024 C-REACTIVE PROT 300.00 mg/L High 0.0-3.0 [facility] Comment on above: Performed By: #### L 501.6710 ####[facility] [address] [place], [address] Chest WITH Contraston 2024 Chest WITH Contrast Normal [facility] Culture, Blood (WB)on 2024 CUB Normal [facility] Comment on above: Performed By: #### M 200.1000, M100.636 ####[facility] [address] [place], [address] Magnesiumon 08-01-2024 Magnesium [Mass/Vol] 1.3 mg/dL Low 1.5-2.2 [facility] Comment on above: Performed By: #### L 501.5200 ####[facility] [address] [place], [address] Magnesium measurement (mass/ volume)Ordered By: Sid Hillman on 08-01-2024 Magnesium (Unsp spec) [Mass/Vol] 1.3 mg/dL Low 1.5-2.2 [facility] Measurement, pHOrdered By: Ximena Hillman on 08-01-2024 pH (Unsp spec) 7.48 [pH] High 7.35-7.45 [facility] No Panel InformationOrdered By: Sid Hillman on 08-01-2024 Blood Gas Sample Site R Brach [facility] Blood Gas Specimen Type ART [facility] Blood Gas Vent Mode Not entered [facility] Oxygen Delivery Device Cannula [facility] Serum or plasma C reactive p rotein measurement (mass/volume)Ordered By: Sid Hillman on 08-01-2024 CRP [Mass/Vol] 300.00 mg/L High 0.0-3.0 [facility] Spine Lumbar WITH Contraston 08-01-2024 Spine Lumbar WITH Contrast Normal [facility] Spine Thoracic WITH Contrast on 08-01-2024 Spine Thoracic WITH Contrast Normal [facility] Total carbon dioxide measure mentOrdered By: Sid Hillman on 08-01-2024 CO2 [Moles/Vol] 26 mmol/L [facility] Vancomycin, Trough Levelon 0 08-01-2024 VANCO, TROUGH 17.5 ug/mL High 5.0-15.0 [facility] Comment on above: Order Comment: Comme nts: Trough to be drawn 30 mins prior to scheduled [id number] Result Comment: Orbin mmended goal trough ranges are generally 10-15 mcg/mlfor less severe/complicated infections such as cellulitisor UTI and 15-20 mcg/ml for more severe/complicatedinfections such as bacteremia/sepsis, osteomyelitis,pneumonia or meningitis. Goal trough ranges should takeinto account indication, patient-specific factors andorganism FLO.VANCOMYCIN STANDARED DRUG THERAPY TROUGH LEVEL: 5.0 - 15.0 mg/LVANCOMYCIN HIGH INTENSITY THERAPY TROUGH LEVEL: 15.0 - 20.0 mg/LHigh Intensity therapy recommended for serious lifethreatening infections include:- Vwkdcpapzf-Xwwbjsgvhsxk-Zeuekffpa (Ventilator/Healtcare Associated)-SepsisPLEASE CONTACT PHARMACY SERVICES (#2019) FOR INTERPRETATIONOF RESULTS. Performed By: #### L 501.8820 ####[facility] [address] [place], [address] Venous Duplex US - Sidney Extre mon 08-01-2024 Venous Duplex US - Sidney Extrem Normal [facility] Basic Metabolic Profile (BMP )on 07-31-2024 BUN/CRE 11.7 RATIO Normal 10-20 [facility] Comment on above: Performed By: #### L 500.2500, L100.0100 ####[facility] [address] [place], [address] Calcium [Mass/Vol] 7.3 mg/dL Low 7.6-11.0 [facility] Comment on above: Performed By: #### L 500.2500, L100.0100 ####[facility] [address] [place], [address] Chloride [Moles/Vol] 107 mmol/L Normal 98-108 [facility] Comment on above: Performed By: #### L 500.2500, L100.0100 ####[facility] [address] [place], [address] CO2 [Moles/Vol] 24.3 mmol/L Normal 21.0-32.0 [facility] Comment on above: Performed By: #### L 500.2500, L100.0100 ####[facility] [address] [place], [address] Creatinine [Mass/Vol] 1.08 mg/dL Normal 0.70-1.20 [facility] Comment on above: Performed By: #### L 500.2500, L100.0100 ####[facility] [address] [place], [address] ECRCL 44.73 ml/min Low 50-250 [facility] Comment on above: Performed By: #### L 500.2500, L100.0100 ####[facility] [address] [place], [address] GAP 12 Normal 5-15 [facility] Comment on above: Performed By: #### L 500.2500, L100.0100 ####[facility] [address] [place], [address] GFR/1.73 sq M.predicted among non-blacks MDRD (S/P/Bld) [Vol rate/Area] 58 mL/min/{1.73_m2} Low >60 [facility] Comment on above: Result Comment: mL/m in/1.73m2 CKD-EPI Creatinine Equation (2020) Performed By: #### L 500.2500, L100.0100 ####[facility] [address] [place], [address] Glucose [Mass/Vol] 101 mg/dL High 70-99 [facility] Comment on above: Performed By: #### L 500.2500, L100.0100 ####[facility] [address] [place], [address] Potassium [Moles/Vol] 2.8 mmol/L Low 3.3-5.1 [facility] Comment on above: Performed By: #### L 500.2500, L100.0100 ####[facility] [address] [place], [address] Sodium [Moles/Vol] 143 mmol/L Normal 133-145 [facility] Comment on above: Performed By: #### L 500.2500, L100.0100 ####[facility] [address] [place], [address] Urea nitrogen [Mass/Vol] 13 mg/dL Normal 4-19 [facility] Comment on above: Performed By: #### L 500.2500, L100.0100 ####[facility] [address] [place], [address] Blood cultureOrdered By: Tony White on 07-31-2024 Bacteria identified Cx Nom (Bld) No growth in 5 days. [facility] CBC W/Diff, Automatedon 07-04 Absolute Lymph 0.79 X10 3/uL Low 0.83-4.51 [facility] Comment on above: Performed By: #### L 500.2500, L100.0100 ####[facility] [address] [place], [address] Absolute Neut 6.5 X10 3/uL Normal 2.0-7.7 [facility] Comment on above: Performed By: #### L 500.2500, L100.0100 ####[facility] [address] [place], [address] Basophils/100 WBC (Bld) 0.5 % Normal 0-1 [facility] Comment on above: Performed By: #### L 500.2500, L100.0100 ####[facility] [address] [place], [address] Eosinophils/100 WBC (Bld) 0.2 % Normal 0-5 [facility] Comment on above: Performed By: #### L 500.2500, L100.0100 ####[facility] [address] [place], [address] Erythrocyte distribution width (RBC) [Ratio] 14.0 % Normal 11.6-14.6 [facility] Comment on above: Performed By: #### L 500.2500, L100.0100 ####[facility] [address] [place], [address] Hematocrit (Bld) [Volume fraction] 24.5 % Low 37-47 [facility] Comment on above: Performed By: #### L 500.2500, L100.0100 ####[facility] [address] [place], [address] Hemoglobin (Bld) [Mass/Vol] 8.1 g/dL Low 12.0-15.0 [facility] Comment on above: Performed By: #### L 500.2500, L100.0100 ####[facility] [address] [place], [address] IG% 1.800 High 0.0-0.9 [facility] Comment on above: Result Comment: IG% - Immature Granulocytes (promyelocytes, myelocytes andmetamyelocytes) > 1% indicates that a LEFT SHIFT is Present. Performed By: #### L 500.2500, L100.0100 ####[facility] [address] [place], [address] Lymphocytes/100 WBC (Bld) 9.4 % Low 19-41 [facility] Comment on above: Performed By: #### L 500.2500, L100.0100 ####[facility] [address] [place], [address] MCH (RBC) [Entitic mass] 30.1 pg Normal 27.0-32.0 [facility] Comment on above: Performed By: #### L 500.2500, L100.0100 ####[facility] [address] [place], [address] MCHC (RBC) [Mass/Vol] 33.1 g/dL Normal 32-36 [facility] Comment on above: Performed By: #### L 500.2500, L100.0100 ####[facility] [address] [place], [address] MCV (RBC) [Entitic vol] 91.1 fL Normal 81-99 [facility] Comment on above: Performed By: #### L 500.2500, L100.0100 ####[facility] [address] [place], [address] Monocytes/100 WBC (Bld) 10.9 % High 0-10 [facility] Comment on above: Performed By: #### L 500.2500, L100.0100 ####[facility] [address] [place], [address] Neutrophils/100 WBC (Bld) 77.2 % High 47-70 [facility] Comment on above: Performed By: #### L 500.2500, L100.0100 ####[facility] [address] [place], [address] Nucleated RBC (Bld) [#/Vol] 0 10*3/uL Normal 0-5 [facility] Comment on above: Performed By: #### L 500.2500, L100.0100 ####[facility] [address] [place], [address] Platelet mean volume (Bld) [Entitic vol] 10.7 fL Normal 6.2-12.0 [facility] Comment on above: Performed By: #### L 500.2500, L100.0100 ####[facility] [address] [place], [address] Platelets (Bld) [#/Vol] 150 10*3/uL Normal 150-450 [facility] Comment on above: Performed By: #### L 500.2500, L100.0100 ####[facility] [address] [place], [address] RBC (Bld) [#/Vol] 2.69 10*6/uL Low 4.2-5.4 [facility] Comment on above: Performed By: #### L 500.2500, L100.0100 ####[facility] [address] [place], [address] RDW SD 46.5 fl High 35.1-43.9 [facility] Comment on above: Performed By: #### L 500.2500, L100.0100 ####[facility] [address] [place], [address] WBC (Bld) [#/Vol] 8.4 10*3/uL Normal 4.4-11.0 [facility] Comment on above: Performed By: #### L 500.2500, L100.0100 ####[facility] [address] [place], [address] Consultation - Cardiologyon 07-31-2024 Consultation - Cardiology Normal [facility] Consultation - Infectious Dx on 07-31-2024 Consultation - Infectious Dx Normal [facility] Magnesiumon 07-31-2024 Magnesium [Mass/Vol] 1.3 mg/dL Low 1.5-2.2 [facility] Comment on above: Performed By: #### L 501.5200 ####[facility] [address] [place], [address] BC GPC IDon 07-30-2024 BC GPC ID Normal [facility] Comment on above: Performed By: #### M 200.1000, M100.636 ####[facility] [address] [place], [address] Basic Metabolic Profile (BMP )on 07-30-2024 BUN/CRE 11.5 RATIO Normal 10-20 [facility] Comment on above: Performed By: #### L 100.0100, L500.2500 ####[facility] [address] [place], [address] Calcium [Mass/Vol] 7.8 mg/dL Normal 7.6-11.0 [facility] Comment on above: Performed By: #### L 100.0100, L500.2500 ####[facility] [address] [place], [address] Chloride [Moles/Vol] 106 mmol/L Normal 98-108 [facility] Comment on above: Performed By: #### L 100.0100, L500.2500 ####[facility] [address] [place], [address] CO2 [Moles/Vol] 23.6 mmol/L Normal 21.0-32.0 [facility] Comment on above: Performed By: #### L 100.0100, L500.2500 ####[facility] [address] [place], [address] Creatinine [Mass/Vol] 0.90 mg/dL Normal 0.70-1.20 [facility] Comment on above: Performed By: #### L 100.0100, L500.2500 ####[facility] [address] [place], [address] ECRCL 53.67 ml/min Normal 50-250 [facility] Comment on above: Performed By: #### L 100.0100, L500.2500 ####[facility] [address] [place], [address] GAP 13 Normal 5-15 [facility] Comment on above: Performed By: #### L 100.0100, L500.2500 ####[facility] [address] [place], [address] GFR/1.73 sq M.predicted among non-blacks MDRD (S/P/Bld) [Vol rate/Area] 72 mL/min/{1.73_m2} Normal >60 [facility] Comment on above: Result Comment: mL/m in/1.73m2 CKD-EPI Creatinine Equation (2020) Performed By: #### L 100.0100, L500.2500 ####[facility] [address] [place], [address] Glucose [Mass/Vol] 125 mg/dL High 70-99 [facility] Comment on above: Performed By: #### L 100.0100, L500.2500 ####[facility] [address] [place], [address] Potassium [Moles/Vol] 3.0 mmol/L Low 3.3-5.1 [facility] Comment on above: Performed By: #### L 100.0100, L500.2500 ####[facility] [address] [place], [address] Sodium [Moles/Vol] 143 mmol/L Normal 133-145 [facility] Comment on above: Performed By: #### L 100.0100, L500.2500 ####[facility] [address] [place], [address] Urea nitrogen [Mass/Vol] 10 mg/dL Normal 4-19 [facility] Comment on above: Performed By: #### L 100.0100, L500.2500 ####[facility] [address] [place], [address] CBC W/Diff, Automatedon 05-2 Absolute Lymph 0.75 X10 3/uL Low 0.83-4.51 [facility] Comment on above: Performed By: #### L 100.0100, L500.2500 ####[facility] [address] [place], [address] Absolute Neut 8.6 X10 3/uL High 2.0-7.7 [facility] Comment on above: Performed By: #### L 100.0100, L500.2500 ####[facility] [address] [place], [address] Basophils/100 WBC (Bld) 0.3 % Normal 0-1 [facility] Comment on above: Performed By: #### L 100.0100, L500.2500 ####[facility] [address] [place], [address] Eosinophils/100 WBC (Bld) 1.9 % Normal 0-5 [facility] Comment on above: Performed By: #### L 100.0100, L500.2500 ####[facility] [address] [place], [address] Erythrocyte distribution width (RBC) [Ratio] 13.6 % Normal 11.6-14.6 [facility] Comment on above: Performed By: #### L 100.0100, L500.2500 ####[facility] [address] [place], [address] Hematocrit (Bld) [Volume fraction] 27.4 % Low 37-47 [facility] Comment on above: Performed By: #### L 100.0100, L500.2500 ####[facility] [address] [place], [address] Hemoglobin (Bld) [Mass/Vol] 9.1 g/dL Low 12.0-15.0 [facility] Comment on above: Performed By: #### L 100.0100, L500.2500 ####[facility] [address] [place], [address] IG% 1.200 High 0.0-0.9 [facility] Comment on above: Result Comment: IG% - Immature Granulocytes (promyelocytes, myelocytes andmetamyelocytes) > 1% indicates that a LEFT SHIFT is Present. Performed By: #### L 100.0100, L500.2500 ####[facility] [address] [place], [address] Lymphocytes/100 WBC (Bld) 7.0 % Low 19-41 [facility] Comment on above: Performed By: #### L 100.0100, L500.2500 ####[facility] [address] [place], [address] MCH (RBC) [Entitic mass] 30.0 pg Normal 27.0-32.0 [facility] Comment on above: Performed By: #### L 100.0100, L500.2500 ####[facility] [address] [place], [address] MCHC (RBC) [Mass/Vol] 33.2 g/dL Normal 32-36 [facility] Comment on above: Performed By: #### L 100.0100, L500.2500 ####[facility] [address] [place], [address] MCV (RBC) [Entitic vol] 90.4 fL Normal 81-99 [facility] Comment on above: Performed By: #### L 100.0100, L500.2500 ####[facility] [address] [place], [address] Monocytes/100 WBC (Bld) 9.4 % Normal 0-10 [facility] Comment on above: Performed By: #### L 100.0100, L500.2500 ####[facility] [address] [place], [address] Neutrophils/100 WBC (Bld) 80.2 % High 47-70 [facility] Comment on above: Performed By: #### L 100.0100, L500.2500 ####[facility] [address] [place], [address] Nucleated RBC (Bld) [#/Vol] 0 10*3/uL Normal 0-5 [facility] Comment on above: Performed By: #### L 100.0100, L500.2500 ####[facility] [address] [place], [address] Platelet mean volume (Bld) [Entitic vol] 10.6 fL Normal 6.2-12.0 [facility] Comment on above: Performed By: #### L 100.0100, L500.2500 ####[facility] [address] [place], [address] Platelets (Bld) [#/Vol] 158 10*3/uL Normal 150-450 [facility] Comment on above: Performed By: #### L 100.0100, L500.2500 ####[facility] [address] [place], [address] RBC (Bld) [#/Vol] 3.03 10*6/uL Low 4.2-5.4 [facility] Comment on above: Performed By: #### L 100.0100, L500.2500 ####[facility] [address] [place], [address] RDW SD 45.0 fl High 35.1-43.9 [facility] Comment on above: Performed By: #### L 100.0100, L500.2500 ####[facility] [address] [place], [address] WBC (Bld) [#/Vol] 10.7 10*3/uL Normal 4.4-11.0 [facility] Comment on above: Performed By: #### L 100.0100, L500.2500 ####[facility] [address] [place], [address] Echo Complete W/ Contraston 07-30-2024 Echo Complete W/ Contrast Normal [facility] Echocardiogram study reportO rdered By: Sam Graves on 07-30-2024 Study report [facility] [address] [place] [address] Echo Complete W/ Contrast 07/30/24 1347 MR#: [id number] Acct: [id number] Name: LEYDA LOPEZ Rep #:[id number] : 1960 63 From: Sam Graves MD Attending Dr: Dr. Dolly Daniels MD Status: ADM IN Ordering Dr: Dolly Daniels MD Date: 07/30/24 Location: [facility]3 Sex: F C Admitted: 07/26/24 Reason For [...] push to enhance endocardial definition. MMode/2D Measurements & Calculations LAV(MOD-bp): 42.5 ml SV(MOD-sp4): 23.1 ml [...] RA A4 area: 8.5 cm2 Doppler Measurements & Calculations MV E max anoop: 110.6 cm/sec [...] Susanna Walker and Student 07/30/24 1615 Date _ Sam Graves MD CC: VINYL DIPPER-C DALI RICE; Dr. Dolly Daniels MD ~ Date Dictated: 07/30/24 1347 Date Transcribed: 07/30/24 161 Coil Builder: Signed [facility] Work Phone: Legionella Antigen Urineon 0 07-30-2024 LEGU Normal [facility] Comment on above: Performed By: #### M 300.4500, M300.4600 ####[facility] [address] [place], [address] RESPIRATORY PANEL MOLECULARo n 07-30-2024 RP PANEL Normal [facility] Comment on above: Performed By: #### M 100.638 ####[facility] [address] [place], [address] Respiratory pathogens detect ion panel by molecular detection methodOrdered By: Dolly Daniels on 07-30-2024 Respiratory pathogens DNA and RNA panel RICK+probe (Resp) [facility] Strep pneumoniae Antig(UR,CS F)on 07-30-2024 STPAG Normal [facility] Comment on above: Performed By: #### M 300.4500, M300.4600 ####[facility] [address] [place], [address] Urinalysis, Completeon 07-30 EPI,SQUAMOUS 0-5 SEEN Normal 5-10 [facility] Comment on above: Order Comment: Urine , Random Performed By: #### L 400.0001 ####[facility] [address] [place], [address] RBC 0-5 SEEN Normal 0-5 [facility] Comment on above: Order Comment: Urine , Random Performed By: #### L 400.0001 ####[facility] [address] [place], [address] WBC 0-5 SEEN Normal 0-5 [facility] Comment on above: Order Comment: Urine , Random Performed By: #### L 400.0001 ####[facility] [address] [place], [address] BACTERIA 0 SEEN Normal None Seen [facility] Comment on above: Order Comment: Urine , Random Performed By: #### L 400.0001 ####[facility] [address] [place], [address] Mucus Ql (Urine sed) 0 SEEN Normal [facility] Comment on above: Order Comment: Urine , Random Performed By: #### L 400.0001 ####[facility] [address] [place], [address] Urine Legionella pneumophila antigen detectionOrdered By: Dolly Daniels on 07-30-2024 L. pneumophila Ag Ql (U) [facility] Basic Metabolic Profile (BMP )on 07-29-2024 BUN/CRE 16.4 RATIO Normal 10-20 [facility] Comment on above: Performed By: #### L 100.0100, L500.2500 ####[facility] [address] [place], [address] Calcium [Mass/Vol] 8.3 mg/dL Normal 7.6-11.0 [facility] Comment on above: Performed By: #### L 100.0100, L500.2500 ####[facility] [address] [place], [address] Chloride [Moles/Vol] 108 mmol/L Normal 98-108 [facility] Comment on above: Performed By: #### L 100.0100, L500.2500 ####[facility] [address] [place], [address] CO2 [Moles/Vol] 25.6 mmol/L Normal 21.0-32.0 [facility] Comment on above: Performed By: #### L 100.0100, L500.2500 ####[facility] [address] [place], [address] Creatinine [Mass/Vol] 0.80 mg/dL Normal 0.70-1.20 [facility] Comment on above: Performed By: #### L 100.0100, L500.2500 ####[facility] [address] [place], [address] ECRCL 60.38 ml/min Normal 50-250 [facility] Comment on above: Performed By: #### L 100.0100, L500.2500 ####[facility] [address] [place], [address] GAP 10 Normal 5-15 [facility] Comment on above: Performed By: #### L 100.0100, L500.2500 ####[facility] [address] [place], [address] GFR/1.73 sq M.predicted among non-blacks MDRD (S/P/Bld) [Vol rate/Area] 83 mL/min/{1.73_m2} Normal >60 [facility] Comment on above: Result Comment: mL/m in/1.73m2 CKD-EPI Creatinine Equation (2020) Performed By: #### L 100.0100, L500.2500 ####[facility] [address] [place], [address] Glucose [Mass/Vol] 100 mg/dL High 70-99 [facility] Comment on above: Performed By: #### L 100.0100, L500.2500 ####[facility] [address] [place], [address] Potassium [Moles/Vol] 2.9 mmol/L Low 3.3-5.1 [facility] Comment on above: Performed By: #### L 100.0100, L500.2500 ####[facility] [address] [place], [address] Sodium [Moles/Vol] 143 mmol/L Normal 133-145 [facility] Comment on above: Performed By: #### L 100.0100, L500.2500 ####[facility] [address] [place], [address] Urea nitrogen [Mass/Vol] 13 mg/dL Normal 4-19 [facility] Comment on above: Performed By: #### L 100.0100, L500.2500 ####[facility] [address] [place], [address] Bilirubin Test strip Ql (U)O rdered By: Lux Quinonez on 07-29-2024 Bilirubin Ql (U) Negative Negative [facility] Blood cultureOrdered By: Bola Quinonez on 07-29-2024 Bacteria identified Cx Nom (Bld) Meth. resistant Staph. aureus Abnormal [facility] Bacteria identified Cx Nom (Bld) Staphylococcus aureus Abnormal [facility] CBC W/Diff, Automatedon 07-03 Absolute Lymph 1.20 X10 3/uL Normal 0.83-4.51 [facility] Comment on above: Performed By: #### L 100.0100, L500.2500 ####[facility] [address] [place], [address] Absolute Neut 5.9 X10 3/uL Normal 2.0-7.7 [facility] Comment on above: Performed By: #### L 100.0100, L500.2500 ####[facility] [address] [place], [address] Basophils/100 WBC (Bld) 0.2 % Normal 0-1 [facility] Comment on above: Performed By: #### L 100.0100, L500.2500 ####[facility] [address] [place], [address] Eosinophils/100 WBC (Bld) 4.6 % Normal 0-5 [facility] Comment on above: Performed By: #### L 100.0100, L500.2500 ####[facility] [address] [place], [address] Erythrocyte distribution width (RBC) [Ratio] 13.4 % Normal 11.6-14.6 [facility] Comment on above: Performed By: #### L 100.0100, L500.2500 ####[facility] [address] [place], [address] Hematocrit (Bld) [Volume fraction] 27.5 % Low 37-47 [facility] Comment on above: Performed By: #### L 100.0100, L500.2500 ####[facility] [address] [place], [address] Hemoglobin (Bld) [Mass/Vol] 8.8 g/dL Low 12.0-15.0 [facility] Comment on above: Performed By: #### L 100.0100, L500.2500 ####[facility] [address] [place], [address] IG% 0.600 Normal 0.0-0.9 [facility] Comment on above: Result Comment: IG% - Immature Granulocytes (promyelocytes, myelocytes andmetamyelocytes) > 1% indicates that a LEFT SHIFT is Present. Performed By: #### L 100.0100, L500.2500 ####[facility] [address] [place], [address] Lymphocytes/100 WBC (Bld) 14.6 % Low 19-41 [facility] Comment on above: Performed By: #### L 100.0100, L500.2500 ####[facility] [address] [place], [address] MCH (RBC) [Entitic mass] 29.8 pg Normal 27.0-32.0 [facility] Comment on above: Performed By: #### L 100.0100, L500.2500 ####[facility] [address] [place], [address] MCHC (RBC) [Mass/Vol] 32.0 g/dL Normal 32-36 [facility] Comment on above: Performed By: #### L 100.0100, L500.2500 ####[facility] [address] [place], [address] MCV (RBC) [Entitic vol] 93.2 fL Normal 81-99 [facility] Comment on above: Performed By: #### L 100.0100, L500.2500 ####[facility] [address] [place], [address] Monocytes/100 WBC (Bld) 8.6 % Normal 0-10 [facility] Comment on above: Performed By: #### L 100.0100, L500.2500 ####[facility] [address] [place], [address] Neutrophils/100 WBC (Bld) 71.4 % High 47-70 [facility] Comment on above: Performed By: #### L 100.0100, L500.2500 ####[facility] [address] [place], [address] Nucleated RBC (Bld) [#/Vol] 0 10*3/uL Normal 0-5 [facility] Comment on above: Performed By: #### L 100.0100, L500.2500 ####[facility] [address] [place], [address] Platelet mean volume (Bld) [Entitic vol] 10.8 fL Normal 6.2-12.0 [facility] Comment on above: Performed By: #### L 100.0100, L500.2500 ####[facility] [address] [place], [address] Platelets (Bld) [#/Vol] 163 10*3/uL Normal 150-450 [facility] Comment on above: Performed By: #### L 100.0100, L500.2500 ####[facility] [address] [place], [address] RBC (Bld) [#/Vol] 2.95 10*6/uL Low 4.2-5.4 [facility] Comment on above: Performed By: #### L 100.0100, L500.2500 ####[facility] [address] [place], [address] RDW SD 46.0 fl High 35.1-43.9 [facility] Comment on above: Performed By: #### L 100.0100, L500.2500 ####[facility] [address] [place], [address] WBC (Bld) [#/Vol] 8.2 10*3/uL Normal 4.4-11.0 [facility] Comment on above: Performed By: #### L 100.0100, L500.2500 ####[facility] [address] [place], [address] Chest PA and Lateralon 07-29 Chest PA and Lateral Normal [facility] Ketones Test strip Ql (U)Ord ered By: Lux Quinonez on 07-29-2024 Ketones Ql (U) Negative Negative [facility] Microscopic analysis of urin e for red blood cells (RBC)Ordered By: Lux Quinonez on 07-29-2024 Microscopic analysis of urine for red blood cells (RBC) 0-5 SEEN /hpf 0-5 [facility] Mucus LM Ql (Urine sed)Order ed By: Lux Quinonez on 07-29-2024 Mucus Ql (Urine sed) 0 SEEN /hpf [facility] Nitrite Test strip Ql (U)Ord ered By: Lux Quinonez on 07-29-2024 Nitrite Ql (U) Negative Negative [facility] Organism identificationOrder ed By: Lux Quinonez on 07-29-2024 Microorganism identified Cx Nom (Unsp spec) Meth. resistant Staph. aureus Abnormal [facility] Potassiumon 07-29-2024 Potassium [Moles/Vol] 3.3 mmol/L Normal 3.3-5.1 [facility] Comment on above: Performed By: #### L 501.5600 ####[facility] [address] [place], [address] Protein Test strip Ql (U)Ord ered By: Lux Quinonez on 07-29-2024 Protein Ql (U) 15 mg/dl High Negative [facility] Squamous epithelial cells de tection in urine sediment by light microscopyOrdered By: Lux Quinonez on 07-29-2024 Epithelial cells.squamous LM Ql (Urine sed) 0-5 SEEN /hpf 5-10 [facility] Urine clarityOrdered By: Bola Quinonez on 07-29-2024 Clarity (U) Clear Clear [facility] Urine color determinationOrd ered By: Lux Quinonez on 07-29-2024 Color (U) Straw Yellow [facility] Urine glucose detectionOrder ed By: Lux Quinonez on 07-29-2024 Glucose Ql (U) Normal mg/dl Normal [facility] Urine leukocyte esterase det ection by dipstickOrdered By: Lux Quinonez on 07-29-2024 Leukocyte esterase Test strip Ql (U) Negative Negative [facility] Urine pHOrdered By: Lux Quinonez on 07-29-2024 pH (U) 6.0 [pH] 5.0 - 8.0 [facility] Urine sediment bacteria coun t by microscopy (number/high power field)Ordered By: Lux Quinonez on 07-29-2024 Bacteria LM.HPF (Urine sed) [#/Area] 0 /[HPF] None Seen [facility] Urine specific gravity measu rementOrdered By: Lux Quinonez on 07-29-2024 Specific gravity (U) [Rel density] 1.010 1.002-1.03 0 [facility] Urine urobilinogen measureme ntOrdered By: Lux Quinonez on 07-29-2024 Urobilinogen Ql (U) Normal mg/dl Normal [facility] White blood cell countOrdere d By: Lux Quinonez on 07-29-2024 White blood cell count 0-5 SEEN /hpf 0-5 [facility] Basic Metabolic Profile (BMP )on 07-28-2024 BUN/CRE 23.8 RATIO High 10-20 [facility] Comment on above: Performed By: #### L 100.0100, L500.2500 ####[facility] [address] [place], [place], [address] Calcium [Mass/Vol] 8.9 mg/dL Normal 7.6-11.0 [facility] Comment on above: Performed By: #### L 100.0100, L500.2500 ####[facility] [address] [place], [address] Chloride [Moles/Vol] 108 mmol/L Normal 98-108 [facility] Comment on above: Performed By: #### L 100.0100, L500.2500 ####[facility] [address] [place], [address] CO2 [Moles/Vol] 24.5 mmol/L Normal 21.0-32.0 [facility] Comment on above: Performed By: #### L 100.0100, L500.2500 ####[facility] [address] [place], [address] Creatinine [Mass/Vol] 1.03 mg/dL Normal 0.70-1.20 [facility] Comment on above: Performed By: #### L 100.0100, L500.2500 ####[facility] [address] [place], [address] ECRCL 46.90 ml/min Low 50-250 [facility] Comment on above: Performed By: #### L 100.0100, L500.2500 ####[facility] [address] [place], [address] GAP 14 Normal 5-15 [facility] Comment on above: Performed By: #### L 100.0100, L500.2500 ####[facility] [address] [place], [address] GFR/1.73 sq M.predicted among non-blacks MDRD (S/P/Bld) [Vol rate/Area] 61 mL/min/{1.73_m2} Normal >60 [facility] Comment on above: Result Comment: mL/m in/1.73m2 CKD-EPI Creatinine Equation (2020) Performed By: #### L 100.0100, L500.2500 ####[facility] [address] [place], [address] Glucose [Mass/Vol] 92 mg/dL Normal 70-99 [facility] Comment on above: Performed By: #### L 100.0100, L500.2500 ####[facility] [address] [place], [address] Potassium [Moles/Vol] 4.2 mmol/L Normal 3.3-5.1 [facility] Comment on above: Performed By: #### L 100.0100, L500.2500 ####[facility] [address] [place], [address] Sodium [Moles/Vol] 147 mmol/L High 133-145 [facility] Comment on above: Performed By: #### L 100.0100, L500.2500 ####[facility] [address] [place], [address] Urea nitrogen [Mass/Vol] 25 mg/dL High 4-19 [facility] Comment on above: Performed By: #### L 100.0100, L500.2500 ####[facility] [address] [place], [address] CBC W/Diff, Automatedon 05-2 PLT EST ADEQUATE Normal ADEQ [facility] Comment on above: Performed By: #### L 100.0100, L500.2500 ####[facility] [address] [place], [address] RED CELL MORPH NORM C+C Normal NORM C C [facility] Comment on above: Performed By: #### L 100.0100, L500.2500 ####[facility] [address] [place], [address] SMEAR COMMENT SCANNED Normal [facility] Comment on above: Performed By: #### L 100.0100, L500.2500 ####[facility] [address] [place], [address] Erythrocyte morphology asses smentOrdered By: Dollyolga Daniels on 07-28-2024 RBC morphology finding Nom (Bld) NORM C+C NORMAL NORM C&C [facility] Platelet estimateOrdered By: Dollyolga Daniels on 07-28-2024 Platelets LM Ql (Bld) ADEQUATE ADEQ [facility] Small Bowel Series Onlyon Small Bowel Series Only Normal [facility] Basic Metabolic Profile (BMP )on 07-27-2024 BUN/CRE 26.0 RATIO High 10-20 [facility] Comment on above: Performed By: #### L 500.2500, L100.0100 ####[facility] [address] [place], [address] Calcium [Mass/Vol] 8.2 mg/dL Normal 7.6-11.0 [facility] Comment on above: Performed By: #### L 500.2500, L100.0100 ####[facility] [address] [place], [address] Chloride [Moles/Vol] 106 mmol/L Normal 98-108 [facility] Comment on above: Performed By: #### L 500.2500, L100.0100 ####[facility] [address] [place], [address] CO2 [Moles/Vol] 26.1 mmol/L Normal 21.0-32.0 [facility] Comment on above: Performed By: #### L 500.2500, L100.0100 ####[facility] [address] [place], [address] Creatinine [Mass/Vol] 1.36 mg/dL High 0.70-1.20 [facility] Comment on above: Performed By: #### L 500.2500, L100.0100 ####[facility] [address] [place], [address] ECRCL 35.52 ml/min Low 50-250 [facility] Comment on above: Performed By: #### L 500.2500, L100.0100 ####[facility] [address] [place], [address] GAP 11 Normal 5-15 [facility] Comment on above: Performed By: #### L 500.2500, L100.0100 ####[facility] [address] [place], [address] GFR/1.73 sq M.predicted among non-blacks MDRD (S/P/Bld) [Vol rate/Area] 44 mL/min/{1.73_m2} Low >60 [facility] Comment on above: Result Comment: mL/m in/1.73m2 CKD-EPI Creatinine Equation (2020) Performed By: #### L 500.2500, L100.0100 ####[facility] [address] [place], [address] Glucose [Mass/Vol] 111 mg/dL High 70-99 [facility] Comment on above: Performed By: #### L 500.2500, L100.0100 ####[facility] [address] [place], [address] Potassium [Moles/Vol] 4.1 mmol/L Normal 3.3-5.1 [facility] Comment on above: Performed By: #### L 500.2500, L100.0100 ####[facility] [address] [place], [address] Sodium [Moles/Vol] 143 mmol/L Normal 133-145 [facility] Comment on above: Performed By: #### L 500.2500, L100.0100 ####[facility] [address] [place], [address] Urea nitrogen [Mass/Vol] 35 mg/dL High 4-19 [facility] Comment on above: Performed By: #### L 500.2500, L100.0100 ####[facility] [address] [place], [address] CBC W/Diff, Automatedon - SMEAR COMMENT SCANNED Normal [facility] Comment on above: Result Comment: LEFT SHIFT: BANDS PRESENT 2+ Performed By: #### L 500.2500, L100.0100 ####[facility] [address] [place], [address] Consultation - Surgicalon Consultation - Surgical Normal [facility] Abdomen Single View (Portabl e)on 07-26-2024 Abdomen Single View (Portable) Normal [facility] Abdomen/Pelvis W IV Cont ONL Yon 07-26-2024 Abdomen/Pelvis W IV Cont ONLY Normal [facility] Absolute lymphocyte countOrd ered By: Amy Bond on 07-26-2024 Lymphocytes Auto (Unsp spec) [#/Vol] 1.12 10*3/uL 0.83-4.51 [facility] Absolute neutrophil countOrd ered By: Amy Bond on 07-26-2024 Neutrophils (Bld) [#/Vol] 5.7 10*3/uL 2.0-7.7 [facility] Anion gap in Serum or Plasma Ordered By: Amy Bond on 07-26-2024 Anion gap [Moles/Vol] 15 mmol/L 5- [facility] Automated lymphocyte count a s percentage of total leukocytesOrdered By: Amy Bond on 07-26-2024 Lymphocytes/100 WBC Auto (Unsp spec) 14.4 % Low 19-41 [facility] BUN/creatinine ratioOrdered By: Amy Bond on 07-26-2024 Urea nitrogen/Creatinine [Mass ratio] 23.2 mg/mg High 10-20 [facility] Basophil percentageOrdered B y: Amy Bond on 07-26-2024 Basophils/100 WBC (Bld) 0.5 % 0-1 [facility] Bilirubin Test strip Ql (U)O rdered By: Amy Bond on 07-26-2024 Bilirubin Ql (U) 1 mg/dL High Negative [facility] Comment on above: COLOR OF URINE MAY A FFECT DIPSTICK RESULTS. Bilirubin, totalOrdered By: Amy Bond on 07-26-2024 Bilirubin [Mass/Vol] 0.49 mg/dL 0.00-1.30 [facility] CBC W/Diff, Automatedon 07-03 PLT EST A Normal ADEQ [facility] Comment on above: Performed By: #### L 100.0100 ####[facility] [address] [place], [address] RED CELL MORPH NORM C+C Normal NORM C C [facility] Comment on above: Performed By: #### L 100.0100 ####[facility] [address] [place], [address] Carbon dioxide, total [Moles /volume] in Central venous bloodOrdered By: Amy Bond on 07-26-2024 CO2 [Moles/Vol] 29.2 mmol/L 21.0-32.0 [facility] Chloride assayOrdered By: Elza Bond on 07-26-2024 Chloride [Moles/Vol] 97 mmol/L Low 98-108 [facility] Comprehensive Metabolic Prof ilon 07-26-2024 Albumin [Mass/Vol] 4.4 g/dL Normal 3.4-4.8 [facility] Comment on above: Performed By: #### L 501.2450, L500.4050 ####[facility] [address] [place], [address] Albumin/Globulin [Mass ratio] 1.3 {ratio} Normal 0.9-2.4 [facility] Comment on above: Performed By: #### L 501.2450, L500.4050 ####[facility] [address] [place], [address] ALK PHOS 101 U/L Normal 35-104 [facility] Comment on above: Performed By: #### L 501.2450, L500.4050 ####[facility] [address] [place], [address] ALT [Catalytic activity/Vol] 12 U/L Normal <=34 [facility] Comment on above: Performed By: #### L 501.2450, L500.4050 ####[facility] [address] [place], [address] AST [Catalytic activity/Vol] 29 U/L Normal <=31 [facility] Comment on above: Performed By: #### L 501.2450, L500.4050 ####[facility] [address] [place], [address] Bilirubin [Mass/Vol] 0.49 mg/dL Normal 0.00-1.30 [facility] Comment on above: Performed By: #### L 501.0, L500.4050 ####[facility] [address] [place], [address] BUN/CRE 23.2 RATIO High 10-20 [facility] Comment on above: Performed By: #### L 501.0, L500.4050 ####[facility] [address] [place], [address] Calcium [Mass/Vol] 9.3 mg/dL Normal 7.6-11.0 [facility] Comment on above: Performed By: #### L 501.2450, L500.4050 ####[facility] [address] [place], [address] Chloride [Moles/Vol] 97 mmol/L Low 98-108 [facility] Comment on above: Performed By: #### L 501.2450, L500.4050 ####[facility] [address] [place], [address] CO2 [Moles/Vol] 29.2 mmol/L Normal 21.0-32.0 [facility] Comment on above: Performed By: #### L 501.2450, L500.4050 ####[facility] [address] [place], [address] Creatinine [Mass/Vol] 1.56 mg/dL High 0.70-1.20 [facility] Comment on above: Performed By: #### L 501.2450, L500.4050 ####[facility] [address] [place], [address] ECRCL 31.49 ml/min Low 50-250 [facility] Comment on above: Performed By: #### L 501.2450, L500.4050 ####[facility] [address] [place], [address] GAP 15 Normal 5-15 [facility] Comment on above: Performed By: #### L 501.2450, L500.4050 ####[facility] [address] [place], [address] GFR/1.73 sq M.predicted among non-blacks MDRD (S/P/Bld) [Vol rate/Area] 37 mL/min/{1.73_m2} Low >60 [facility] Comment on above: Result Comment: mL/m in/1.73m2 CKD-EPI Creatinine Equation (2020) Performed By: #### L 501.2450, L500.4050 ####[facility] [address] [place], [address] Globulin (S) [Mass/Vol] 3.5 g/dL Normal 2.2-4.2 [facility] Comment on above: Performed By: #### L 501.2450, L500.4050 ####[facility] [address] [place], [address] Glucose [Mass/Vol] 116 mg/dL High 70-99 [facility] Comment on above: Performed By: #### L 501.2450, L500.4050 ####[facility] [address] [place], [address] Potassium [Moles/Vol] 4.5 mmol/L Normal 3.3-5.1 [facility] Comment on above: Performed By: #### L 501.2450, [id number] ####[facility] [address] [place], [address] Sodium [Moles/Vol] 142 mmol/L Normal 133-145 [facility] Comment on above: Performed By: #### L 501.2450, [id number] ####[facility] [address] [place], [address] T PROT 7.9 g/dL Normal 5.9-8.4 [facility] Comment on above: Performed By: #### L 501.2450, [id number] ####[facility] [address] [place], [address] Urea nitrogen [Mass/Vol] 36 mg/dL High 4-19 [facility] Comment on above: Performed By: #### L 501.2450, [id number] ####[facility] [address] [place], [address] Emergency Department Summary on 07-26-2024 Emergency Department Summary Normal [facility] Eosinophil percentageOrdered By: Amy Bond on 07-26-2024 Eosinophils/100 WBC (Bld) 1.5 % 0-5 [facility] Erythrocyte distribution wid th ratioOrdered By: Amy Bond on 07-26-2024 Erythrocyte distribution width (RBC) [Ratio] 14.0 % 11.6-14.6 [facility] Erythrocyte distribution wid th standard deviationOrdered By: Amy Bond on 07-26-2024 Erythrocyte distribution width (RBC) [Ratio] 46.1 fl High 35.1-43.9 [facility] Erythrocyte morphology asses smentOrdered By: Amy Bond on 07-26-2024 RBC morphology finding Nom (Bld) NORM C+C NORMAL NORM C&C [facility] Glomerular filtration rate ( GFR) estimation/1.73 sq m using serum, plasma, or whole bOrdered By: Amy Bond on 07-26-2024 GFR/1.73 sq M.predicted among non-blacks MDRD (S/P/Bld) [Vol rate/Area] 37 mL/min/{1.73_m2} Low >60 [facility] Comment on above: mL/min/1.73m2 CKD-EP I Creatinine Equation (2020) H AND P Exam - [place] 07-26-2024 H&P Exam - Hospitalist Normal [facility] Hematocrit Auto (Bld) [Volum e fraction]Ordered By: Amy Bond on 07-26-2024 Hematocrit (Bld) [Volume fraction] 35.1 % Low 37-47 [facility] Hemoglobin measurementOrdere d By: Amy Bond on 07-26-2024 Hemoglobin (Bld) [Mass/Vol] 11.5 g/dL Low 12.0-15.0 [facility] Immature granulocytes/100 WB C Auto (Bld)Ordered By: Amy Bond on 07-26-2024 Immature granulocytes/100 WBC (Bld) 0.500 % 0.0-0.9 [facility] Comment on above: IG% - Immature Granu locytes (promyelocytes, myelocytes and metamyelocytes) > 1% indicates that a LEFT SHIFT is Present. Ketones Test strip Ql (U)Ord ered By: Amy Bond on 07-26-2024 Ketones Ql (U) Negative Negative [facility] Laboratory - Chemistry and C hemistry - challengeOrdered By: Amy Bond on 07-26-2024 AST [Catalytic activity/Vol] 29 U/L <32 [facility] Lipaseon 07-26-2024 Lipase [Catalytic activity/Vol] 12 U/L Low 13-75 [facility] Comment on above: Result Comment: Pleolga se note:LIPASE revised reference range effective 22.New Lipase methodology. Expected to produce lower valuesthan the previous assay method.NEW Reference Range: 13 - 75 U/L Performed By: #### L 501.2450, L500.4050 ####[facility] [address] [place], [address] Lipase measurementOrdered By : Amy Bond on 07-26-2024 Lipase [Catalytic activity/Vol] 12 U/L Low 13-75 [facility] Comment on above: Please note:LIPASE r evised reference range effective 22. New Lipase methodology. Expected to produce lower values than the previous assay method. NEW Reference Range: 13 - 75 U/L MCV (mean corpuscular volume ) determinationOrdered By: Amy Bond on 07-26-2024 MCV (RBC) [Entitic vol] 90.5 fL 81-99 [facility] Mean corpuscular hemoglobin (MCH) determinationOrdered By: Amy Bond on 07-26-2024 MCH (RBC) [Entitic mass] 29.6 pg 27.0-32.0 [facility] Mean corpuscular hemoglobin concentration (MCHC) determinationOrdered By: Amy Bodn on 07-26-2024 MCHC (RBC) [Mass/Vol] 32.8 g/dL 32-36 [facility] Mean platelet volume determi nationOrdered By: Amy Bond on 07-26-2024 Platelet mean volume (Bld) [Entitic vol] 10.5 fL 6.2-12.0 [facility] Microscopic analysis of urin e for red blood cells (RBC)Ordered By: Amy Bond on 07-26-2024 Microscopic analysis of urine for red blood cells (RBC) 0 SEEN /hpf 0-5 [facility] Monocyte percentageOrdered B y: Amy Bond on 07-26-2024 Monocytes/100 WBC (Bld) 10.3 % High 0-10 [facility] Mucus LM Ql (Urine sed)Order ed By: Amy Bond on 07-26-2024 Mucus Ql (Urine sed) 0 SEEN /hpf [facility] Neutrophil percentageOrdered By: Amy Bond on 07-26-2024 Neutrophils/100 WBC (Bld) 72.8 % High 47-70 [facility] Nitrite Test strip Ql (U)Ord ered By: Amy Bond on 07-26-2024 Nitrite Ql (U) Negative Negative [facility] Nucleated red blood cell per centageOrdered By: Amy Bond on 07-26-2024 Nucleated RBC/100 WBC (Bld) [Ratio] 0 % 0-5 [facility] Platelet countOrdered By: Elza Bond on 07-26-2024 Platelets (Bld) [#/Vol] 258 10*3/uL 150-450 [facility] Platelet estimateOrdered By: Amy Bond on 07-26-2024 Platelets LM Ql (Bld) A ADEQ [facility] Potassium measurement (mass/ volume)Ordered By: Amy Bond on 07-26-2024 Potassium (Unsp spec) [Mass/Vol] 4.5 mmol/L 3.3-5.1 [facility] Protein Test strip Ql (U)Ord ered By: Amy Bond on 07-26-2024 Protein Ql (U) 30 mg/dl High Negative [facility] RBC Auto (Bld) [#/Vol]Ordere d By: Amy Bond on 07-26-2024 RBC (Bld) [#/Vol] 3.88 10*6/uL Low 4.2-5.4 [facility] Serum creatinine measurement (mass/volume)Ordered By: Amy Bond on 07-26-2024 Creatinine [Mass/Vol] 1.56 mg/dL High 0.70-1.20 [facility] Serum globulin measurementOr dered By: Amy Bond on 07-26-2024 Globulin (S) [Mass/Vol] 3.5 g/dL 2.2-4.2 [facility] Serum glucose measurement (m ass/volume)Ordered By: Amy Bond on 07-26-2024 Glucose [Mass/Vol] 116 mg/dL High 70-99 [facility] Serum or plasma alanine reyes otransferase (ALT) measurementOrdered By: Amy Bond on 07-26-2024 ALT [Catalytic activity/Vol] 12 U/L <35 [facility] Serum or plasma albumin melo urement (mass/volume)Ordered By: Amy Bond on 07-26-2024 Albumin [Mass/Vol] 4.4 g/dL 3.4-4.8 [facility] Serum or plasma albumin/glob ulin mass ratioOrdered By: Amy Bond on 07-26-2024 Albumin/Globulin [Mass ratio] 1.3 {ratio} 0.9-2.4 [facility] Serum or plasma alkaline raymond sphatase measurementOrdered By: Amy Bond on 07-26-2024 ALP [Catalytic activity/Vol] 101 U/L 35-104 [facility] Serum or plasma calcium melo urement (mass/volume)Ordered By: Amy Bond on 07-26-2024 Calcium [Mass/Vol] 9.3 mg/dL 7.6-11.0 [facility] Serum or plasma urea nitroge n measurement (mass/volume)Ordered By: Amy Bond on 07-26-2024 Urea nitrogen [Mass/Vol] 36 mg/dL High 4-19 [facility] Sodium levelOrdered By: Prabhakar Bond on 07-26-2024 Sodium [Moles/Vol] 142 mmol/L 133-145 [facility] Squamous epithelial cells de tection in urine sediment by light microscopyOrdered By: Amy Bond on 07-26-2024 Epithelial cells.squamous LM Ql (Urine sed) 0-5 SEEN /hpf - [facility] Total proteinOrdered By: Bola Bond on 07-26-2024 Protein [Mass/Vol] 7.9 g/dL 5.9-8.4 [facility] Urinalysis, Completeon 07-26 WBC 0-5 SEEN Normal 0-5 [facility] Comment on above: Order Comment: CLEAN CATCH Performed By: #### L 400.0001 ####[facility] [address] [place], [place], [id number] BACTERIA 2+ /hpf Normal None Seen [facility] Comment on above: Order Comment: CLEAN CATCH Performed By: #### L 400.0001 ####[facility] [address] [place], [place], [id number] EPI,SQUAMOUS 0-5 SEEN Normal 5- [facility] Comment on above: Order Comment: CLEAN CATCH Performed By: #### L 400.0001 ####[facility] [address] [place], [address] Mucus Ql (Urine sed) 0 SEEN Normal [facility] Comment on above: Order Comment: CLEAN CATCH Performed By: #### L 400.0001 ####[facility] [address] [place], [address] RBC 0 SEEN Normal 0-5 [facility] Comment on above: Order Comment: CLEAN CATCH Performed By: #### L 400.0001 ####[facility] [address] [place], [place], [id number] Urine clarityOrdered By: Bola Bond on 07-26-2024 Clarity (U) Clear Clear [facility] Urine color determinationOrd ered By: Amy Bond on 07-26-2024 Color (U) Yellow Yellow [facility] Urine glucose detectionOrder ed By: Amy Bond on 07-26-2024 Glucose Ql (U) Normal mg/dl Normal [facility] Urine leukocyte esterase det ection by dipstickOrdered By: Amy Bond on 07-26-2024 Leukocyte esterase Test strip Ql (U) Negative Negative [facility] Urine pHOrdered By: Asim Bond on 07-26-2024 pH (U) 5.0 [pH] 5.0 - 8.0 [facility] Urine sediment bacteria coun t by microscopy (number/high power field)Ordered By: Amy Bond on 07-26-2024 Bacteria LM.HPF (Urine sed) [#/Area] 2 /[HPF] None Seen [facility] Urine specific gravity measu rementOrdered By: Amy Bond on 07-26-2024 Specific gravity (U) [Rel density] 1.015 1.002-1.03 0 [facility] Urine urobilinogen measureme ntOrdered By: Amy oBnd on 07-26-2024 Urobilinogen Ql (U) Normal mg/dl Normal [facility] White blood cell (WBC) count Ordered By: Amy Bond on 07-26-2024 WBC (Bld) [#/Vol] 7.8 10*3/uL 4.4-11.0 [facility] White blood cell countOrdere d By: Amy Bond on 07-26-2024 White blood cell count 0-5 SEEN /hpf 0-5 [facility] CNPNon 07-24-2024 CNPN Telephone (INTMWS) LEYDA LOPEZ ([id number]) 1960 F Date Time Provider Department 07/24/24 VELVET PALACIO INTMWS During your visit today, [...] back on 06/08. No notes found in [facility] or anything under scanned documents. Asked that Brionna refax the information to me at [phone]. Did call the pt who confirms okay to speak with Jeramy and especially Gwen Duenas. Pt states she is seeing Gwen this afternoon. Attempted to contact Gwen back to share information with her but no answer so left VM to return the call. Cesia Steele LPN 07/28/2024 4:28 PM Addendum Faxed last [address] scan of head, per Jeramy per request Attn: Radha Steele LPN July 28, 2024 3:34 PM Allergies As [...] Visit: Request for information [Other] Cmt: from [facility] psychologist Prescriptions as of 07/28/2024 - SUMAtriptan [...] once daily. (more content not included)... Normal [facility] CT BRAIN WO IVCONon 07-10-[address] BRAIN WO IVCON * * *Final Report* * * DATE OF EXAM: Jul 09 2024 2:27PM [facility] 0504 - CT BRAIN WO IVCON / [...] of acute intracranial process or mass effect. Coil Builder: [facility] Transcribe Date/Time: Jul 09 2024 3:34P Dictated by : EVELIN FRAUSTO MD This examination was interpreted and the report reviewed and electronically signed by: EVELIN FRAUSTO MD on Jul 09 2024 3:40PM EST [id number] Normal [facility] CT Head WO contraston 2024 IMPRESSION: No CT evidence of acute intracranial process or mass effect. Coil Builder: [facility] Transcribe Date/Time: Jul 09 2024 3:34P Dictated by : EVELIN FRAUSTO MD This examination was interpreted and the report reviewed and electronically signed by: EVELIN FRAUSTO MD on Jul 09 2024 3:40PM EST DIVISION OF RADIOLOGY * * *Final Report* * * DATE OF EXAM: Jul 09 2024 2:27PM [facility] 0504 - CT BRAIN WO IVCON / [...] tissues are unremarkable. DIVISION OF RADIOLOGY Provider, [facility] - 07/09/2024 * * *Final Report* * * DATE OF EXAM: Jul 09 2024 2:27PM [facility] 0504 - CT BRAIN WO IVCON / [...] of acute intracranial process or mass effect. Coil Builder: ABBY Transcribe Date/Time: Jul 09 2024 3:34P Dictated by : EVELIN FRAUSTO MD This examination was interpreted and the report reviewed and electronically signed by: EVELIN FRAUSTO MD on Jul 09 2024 3:40PM EST [facility] Radiology Study observation (narrative) [facility] CT Head WO contrastOrdered B y: [facility] Provider on 07-09-2024 [facility] Ferritin SerPl-mCncon 2024 Ferritin [Mass/Vol] 91.3 ng/mL Normal 14.7-205.1 [facility] Comment on above: Order Comment: Speci men Type: BLOOD SPECIMENOrdering Facility: [facility] Address: [address] [place] [address] Performed By: #### 2 284-8, 55322-3, 6-4 ####[facility] LABCLIA [id number] [place] [address] [place] Folate SerPl-ncon 07-10-19 25 Folate [Mass/Vol] ng/mL Normal >4.7 [facility] Comment on above: Order Comment: Speci adina Type: BLOOD SPECIMENOrdering Facility: [facility] Address: [address] [place] [address] Result Comment: A re sult of > 20 ng/mL is not necessarily indicative of a pathologic or treatable condition: it reflects a limitation of the test methodology. Assay reference range: 4.8 to 24.2 ng/mL. Suitable for detection of folate deficiency. Reference: Folate III (Folate III) [package insert V 1.0 [employer]]. [facility], [place], [place]: January 2015. Performed By: #### 2 284-8, 07283-7, 2275-4 ####[facility] LABCLIA [id number] [place] [id number] [place] Iron and Iron binding capaci ty panelon 07-09-2024 Iron [Mass/Vol] 65 ug/dL Normal 41-186 [facility] Comment on above: Order Comment: Speci men Type: BLOOD SPECIMENOrdering Facility: [facility] Address: [address] [place] [address] Performed By: #### 2 284-8, 55446-9, 6-4 ####[facility] LABIA [id number] [address] [address] [place] Iron binding capacity [Mass/Vol] 288 ug/dL Normal 232-386 [facility] Comment on above: Order Comment: Speci men Type: BLOOD SPECIMENOrdering Facility: [facility] Address: [address] [place] [address] Performed By: #### 2 284-8, 49962-1, 6-4 ####[facility] LABIA [id number] [place] [id number] [place] Iron/TIBC [Molar ratio] 22.6 % Normal 15.0-57.0 [facility] Comment on above: Order Comment: Speci men Type: BLOOD SPECIMENOrdering Facility: [facility] Address: [address] [place] [address] Performed By: #### 2 284-8, 20684-0, 2275-4 ####[facility] LABIA [id number] [place] [id number] [place] Retics #on 07-09-2024 Reticulocytes (Bld) [#/Vol] 0.87382 10*3/uL Normal 0.018-0.10 0 [facility] Comment on above: Order Comment: Speci men Type: BLOOD SPECIMENOrdering Facility: [facility] Address: [address] [place] [address] Performed By: #### 1 4196-0 ####[facility] [id number] [place] [address] [place] Reticulocytes (Bld) [#/Vol]o n 07-09-2024 Reticulocytes/100 RBC (Bld) 2.1 % High 0.4-2.0 [facility] Comment on above: Order Comment: Speci men Type: BLOOD SPECIMENOrdering Facility: [facility] Address: [address] [place] [address] Performed By: #### 1 4196-0 ####[facility] GINI [address]SA[address] [id number] [place] [address] [facility] Tyree 07-06-2024 DAVID Telephone (LUCIA) LEYDA LOPEZ ([id number]) 1960 F Date Time Provider Department 07/06/24 DALI RICE During your visit today, we recorded the following information about you: Suellen Zaragoza LPN 07/06/2024 5:01 PM Signed Pt calls to report she does not need the whole nebulizer kit that was ordered. Pt reports she only needs the mask and the little cup. Pt is asking for new order to go to [employer] instead of [facility]. RADHA Mendieta Joy, APRN.CNP 07/08/2024 8:32 AM Signed Sent with specifications of what is needed Dali Rice APRN.MAR[place]ETTA Allergies As of Date: 07/06/2024 Noted Allergy [...] asthma, unspecified asthma severity, unspecified whether persistent ([facility]) [J45.909] Order(s):Nebulizer Accessories kit1 each every 4 [...] DISORDER WIT (more content not included)... Normal [facility] Tyree 06-30-2024 MARIETTAN Telephone (INTMWS) LEYDA LOPEZ ([id number]) 1960 F Date Time Provider Department 06/30/24 [...] tomorrow before results are all back. Aware VINYL DIPPER is out of the office today. Please [...] disease) [J (more content not included)... Normal [facility] ALBUMIN/CREATININE RATIO, UR INEon 06-29-2024 Albumin DL <= 20 mg/L (U) [Mass/Vol] mg/dL Normal [facility] Comment on above: Order Comment: Speci men Type: URINE SPECIMENOrdering Facility: [facility] Address: [address] [place] [address] Performed By: #### U ACR ####[facility] LABCLIA [id number] [place] [address] [place] Albumin/Creatinine (U) [Mass ratio] <9 Normal <30 [facility] Comment on above: Order Comment: Speci men Type: URINE SPECIMENOrdering Facility: [facility] Address: [address] [place] [address] Result Comment: Adul t Male and Female Nephrotic Criteria: <30 mg/g is considered normal to mildly increased 30-300 mg/g is considered moderately increased >300 mg/g is considered severely increased KDIGO. (2013). KDIGO 2012 Clinical Practice Guideline for the Evaluation and Management of Chronic Kidney Disease. Official Journal of the International Society of Nephrology, 3(1), 1-150. Performed By: #### U ACR ####[facility] LABCLIA [id number] [place] [address] [place] Creatinine (U) [Mass/Vol] 132.7 mg/dL Normal 20.0-300.0 [facility] Comment on above: Order Comment: Speci men Type: URINE SPECIMENOrdering Facility: [facility] Address: [address] [place] [address] Performed By: #### U ACR ####[facility] LABCLIA [id number] [place] [address] [place] CBC W Auto Differential pane l (Bld)on 06-29-2024 Basophils (Bld) [#/Vol] 0.03 10*3/uL Normal <0.11 [facility] Comment on above: Order Comment: Speci men Type: BLOOD SPECIMENOrdering Facility: [facility] Address: [address] [place] [address] Performed By: #### 5 7021-8 ####[facility] LABCLIA [id number] [place] [address] [place] Basophils/100 WBC (Bld) 0.4 % Normal [facility] Comment on above: Order Comment: Speci men Type: BLOOD SPECIMENOrdering Facility: [facility] Address: [address] [place] [address] Performed By: #### 5 7021-8 ####[facility] LABCLIA [id number] [place] [address] [place] Differential cell count method Nom (Bld) Auto Normal [facility] Comment on above: Order Comment: Speci men Type: BLOOD SPECIMENOrdering Facility: [facility] Address: [address] [place] [address] Performed By: #### 5 7021-8 ####[facility] LABCLIA [id number] [address] [place] [address] [place] Eosinophils (Bld) [#/Vol] 0.31 10*3/uL Normal <0.46 [facility] Comment on above: Order Comment: Speci men Type: BLOOD SPECIMENOrdering Facility: [facility] Address: [address] [place] [address] Performed By: #### 5 7021-8 ####[facility] LABCLIA [id number] [address], [place] [address] [place] Eosinophils/100 WBC (Bld) 4.2 % Normal [facility] Comment on above: Order Comment: Speci men Type: BLOOD SPECIMENOrdering Facility: [facility] Address: [address] [place] [address] Performed By: #### 5 7021-8 ####[facility] LABCLIA [id number] [address], [place] [address] [place] Erythrocyte distribution width (RBC) [Ratio] 12.9 % Normal 11.5-15.0 [facility] Comment on above: Order Comment: Speci men Type: BLOOD SPECIMENOrdering Facility: [facility] Address: [address] [place] [address] Performed By: #### 5 7021-8 ####[facility] LABCLIA [id number] [address], [place] [address] [place] Hematocrit (Bld) [Volume fraction] 32.3 % Low 36.0-46.0 [facility] Comment on above: Order Comment: Speci men Type: BLOOD SPECIMENOrdering Facility: [facility] Address: [address] [place] [address] Performed By: #### 5 7021-8 ####[facility] LABCLIA [id number] [address] [place] [address] [place] Hemoglobin (Bld) [Mass/Vol] 10.4 g/dL Low 11.5-15.5 [facility] Comment on above: Order Comment: Speci men Type: BLOOD SPECIMENOrdering Facility: [facility] Address: [address] [place] [address] Performed By: #### 5 7021-8 ####[facility] LABCLIA [id number] [place] [id number] [place] Immature granulocytes (Bld) [#/Vol] 10*3/uL Normal <0.10 [facility] Comment on above: Order Comment: Speci men Type: BLOOD SPECIMENOrdering Facility: [facility] Address: [address] [place] [address] Performed By: #### 5 7021-8 ####[facility] LABCLIA [id number] [place] [address] [place] Immature granulocytes/100 WBC (Bld) 0.3 % Normal [facility] Comment on above: Order Comment: Speci men Type: BLOOD SPECIMENOrdering Facility: [facility] Address: [address] [place] [address] Performed By: #### 5 7021-8 ####[facility] LABCLIA [id number] [place] [address] [place] Lymphocytes (Bld) [#/Vol] 1.94 10*3/uL Normal 1.00-4.00 [facility] Comment on above: Order Comment: Speci men Type: BLOOD SPECIMENOrdering Facility: [facility] Address: [address] [place] [address] Performed By: #### 5 7021-8 ####[facility] LABCLIA [id number] [place] [address] [place] Lymphocytes/100 WBC (Bld) 26.1 % Normal [facility] Comment on above: Order Comment: Speci men Type: BLOOD SPECIMENOrdering Facility: [facility] Address: [address] [place] [address] Performed By: #### 5 7021-8 ####[facility] LABIA [id number] [place] [address] [place] MCH (RBC) [Entitic mass] 29.7 pg Normal 26.0-34.0 [facility] Comment on above: Order Comment: Speci men Type: BLOOD SPECIMENOrdering Facility: [facility] Address: [address] [place] [address] Performed By: #### 5 7021-8 ####[facility] LABIA [id number] [place] [address] [place] MCHC (RBC) [Mass/Vol] 32.2 g/dL Normal 30.5-36.0 [facility] Comment on above: Order Comment: Speci men Type: BLOOD SPECIMENOrdering Facility: [facility] Address: [address] [place] [address] Performed By: #### 5 7021-8 ####[facility] LABIA [id number] [place] [address] [place] MCV (RBC) [Entitic vol] 92.3 fL Normal 80.0-100.0 [facility] Comment on above: Order Comment: Speci men Type: BLOOD SPECIMENOrdering Facility: [facility] Address: [address] [place] [address] Performed By: #### 5 7021-8 ####[facility] LABIA [id number] [place] [address] [place] Monocytes (Bld) [#/Vol] 0.50 10*3/uL Normal <0.87 [facility] Comment on above: Order Comment: Speci men Type: BLOOD SPECIMENOrdering Facility: [facility] Address: [address] [place] [address] Performed By: #### 5 7021-8 ####[facility] LABIA [id number] [address] [place] Monocytes/100 WBC (Bld) 6.7 % Normal [facility] Comment on above: Order Comment: Speci men Type: BLOOD SPECIMENOrdering Facility: [facility] Address: [address] [place] [address] Performed By: #### 5 7021-8 ####[facility] LABCLIA [id number] [address] [address] [place] Neutrophils (Bld) [#/Vol] 4.63 10*3/uL Normal 1.45-7.50 [facility] Comment on above: Order Comment: Speci men Type: BLOOD SPECIMENOrdering Facility: [facility] Address: [address] [place] [address] Performed By: #### 5 7021-8 ####[facility] LABCLIA [id number] [place] [address] [place] Neutrophils/100 WBC (Bld) 62.3 % Normal [facility] [facility] Comment on above: Order Comment: Speci men Type: BLOOD SPECIMENOrdering Facility: [facility] Address: [address] [place] [address] Performed By: #### 5 7021-8 ####[facility] LABCLIA [id number] [place] [address] [place] Nucleated RBC (Bld) [#/Vol] 10*3/uL Normal <0.01 [facility] Comment on above: Order Comment: Speci men Type: BLOOD SPECIMENOrdering Facility: [facility] Address: [address] [place] [address] Performed By: #### 5 7021-8 ####[facility] LABCLIA [id number] [place] [address] [place] Nucleated RBC/100 WBC (Bld) [Ratio] 0.0 /100 WBC Normal [facility] Comment on above: Order Comment: Speci men Type: BLOOD SPECIMENOrdering Facility: [facility] Address: [address] [place] [address] Performed By: #### 5 7021-8 ####[facility] LABCLIA [id number] [facility] [address] [place] [address] [place] Platelet mean volume (Bld) [Entitic vol] 10.8 fL Normal 9.0-12.7 [facility] Comment on above: Order Comment: Speci men Type: BLOOD SPECIMENOrdering Facility: [facility] Address: [address] [place] [address] Performed By: #### 5 7021-8 ####[facility] LABCLIA [id number] [facility] [address] [place] [address] [place] Platelets (Bld) [#/Vol] 218 10*3/uL Normal 150-400 [facility] Comment on above: Order Comment: Speci men Type: BLOOD SPECIMENOrdering Facility: [facility] Address: [address] [place] [address] Performed By: #### 5 7021-8 ####[facility] LABIA [id number] [facility] [address] [place] [address] [place] RBC (Bld) [#/Vol] 3.50 10*6/uL Low 3.90-5.20 [facility] Comment on above: Order Comment: Speci men Type: BLOOD SPECIMENOrdering Facility: [facility] Address: [address] [place] [address] Performed By: #### 5 7021-8 ####[facility] LABCLIA [id number] [facility] [address] [place] [address] [place] WBC (Bld) [#/Vol] 7.43 10*3/uL Normal 3.70-11.00 [facility] Comment on above: Order Comment: Speci men Type: BLOOD SPECIMENOrdering Facility: [facility] Address: [address] [place] [address] Performed By: #### 5 7021-8 ####[facility] LABCLIA [id number] [facility] [address] [address] [facility] CNOVon 06-29-2024 CNOV Office Visit (INTMWS ) LEYDA LOPEZ ([id number]) 1960 F Date Time Provider Department 06/29/24 3:00 PM DALI RICE During your visit today, we recorded the following information about you: Pulse Respiration Blood pressure Weight Normal [facility] CNPNon 06-29-2024 CNPN Telephone (FAMPWS) LEYDA LOPEZ ([id number]) 1960 F Date Time Provider Department 06/29/24 DALI RICE During your visit today, we recorded the following information about you: Dali Rice APRN.MAR[place] 06/29/2024 5:08 PM Signed Did patient ever establish with pulmonology as ordered as last year? If not I did order it today and she needs to establish. Thank you Dali Rice APRN.Gustavo Vitale RN 06/29/2024 7:40 PM Signed Called and left [...] BLOOD LOSS (more content not included)... Normal [facility] Comprehensive metabolic 2000 panelon 06-29-2024 Albumin [Mass/Vol] 3.8 g/dL Low 3.9-4.9 [facility] Comment on above: Order Comment: Speci men Type: BLOOD SPECIMENOrdering Facility: [facility] Address: [address] [place] [address] Performed By: #### 2 4323-8, 6-3, , 67714-6 ####[facility] LABIA [id number] [place] [address] [place] ALP [Catalytic activity/Vol] 112 U/L Normal 34-123 [facility] Comment on above: Order Comment: Speci men Type: BLOOD SPECIMENOrdering Facility: [facility] Address: [address] [place] [address] Performed By: #### 2 4323-8, 6-3, , 73895-9 ####[facility] [id number] [place] [address] [place] ALT [Catalytic activity/Vol] 21 U/L Normal 7-38 [facility] Comment on above: Order Comment: Speci men Type: BLOOD SPECIMENOrdering Facility: [facility] Address: [address] [place] [address] Performed By: #### 2 4323-8, 6-3, , 72152-9 ####[facility] LABIA [id number] [address] [address] [place] Anion gap [Moles/Vol] 9 mmol/L Normal 8-15 [facility] Comment on above: Order Comment: Speci men Type: BLOOD SPECIMENOrdering Facility: [facility] Address: [address] [place] [address] Performed By: #### 2 4323-8, 6-3, , ####[facility] LABCLIA [id number] [address] [address] [place] AST [Catalytic activity/Vol] 20 U/L Normal 13-35 [facility] Comment on above: Order Comment: Speci men Type: BLOOD SPECIMENOrdering Facility: [facility] Address: [address] [place] [address] Performed By: #### 2 4323-8, 6-3, , ####[facility] LABCLIA [id number] [address] [address] [place] Bilirubin [Mass/Vol] mg/dL Low 0.2-1.3 [facility] Comment on above: Order Comment: Speci men Type: BLOOD SPECIMENOrdering Facility: [facility] Address: [address] [place] [address] Performed By: #### 2 4323-8, 6-3, , ####[facility] LABIA [id number] [place] [address] [place] Calcium [Mass/Vol] 9.0 mg/dL Normal 8.5-10.2 [facility] Comment on above: Order Comment: Speci men Type: BLOOD SPECIMENOrdering Facility: [facility] Address: [address] [place], [place] [address] Performed By: #### 2 4323-8, 6-3, , ####[facility] LABIA [id number] [address] [address] [place] Chloride [Moles/Vol] 105 mmol/L Normal 98-107 [facility] Comment on above: Order Comment: Speci men Type: BLOOD SPECIMENOrdering Facility: [facility] Address: [address] [place], [place] [address] Performed By: #### 2 4323-8, 3015-3, , ####[facility] LABCLIA [id number] [address] [address] [place] CO2 [Moles/Vol] 28 mmol/L Normal 22-30 [facility] Comment on above: Order Comment: Speci men Type: BLOOD SPECIMENOrdering Facility: [facility] Address: [address] [place] [address] Performed By: #### 2 4323-8, 3016-3, , ####[facility] LABCLIA [id number] [address] [address] [place] Creatinine [Mass/Vol] 0.98 mg/dL High 0.58-0.96 [facility] Comment on above: Order Comment: Speci men Type: BLOOD SPECIMENOrdering Facility: [facility] Address: [address] [place] [address] Performed By: #### 2 4323-8, 6-3, , ####[facility] LABIA [id number] [place] [address] [place] Creatinine and Glomerular filtration rate.predicted panel (S/P/Bld) 65 mL/min/1.73m??? Normal >=60 [facility] Comment on above: Order Comment: Speci men Type: BLOOD SPECIMENOrdering Facility: [facility] Address: [address] [place] [address] Result Comment: [place] mated Glomerular Filtration Rate [...] actual GFR. Performed By: #### 2 4323-8, 3016-3, , 99432-1 ####[facility] LABCLIA [id number] [place] [id number] [place] Glucose [Mass/Vol] 107 mg/dL High 74-99 [facility] Comment on above: Order Comment: Speci men Type: BLOOD SPECIMENOrdering Facility: [facility] Address: [address] [place] [address] Result Comment: The [place] Diabetes Association (ADA) provides guidance for cutoff [...] Standards of Medical Care in Diabetes 2016, [place] Diabetes Association. Diabetes Care. 2016.39(Suppl 1). Performed By: #### 2 4323-8, 3016-3, , 96214-8 ####[facility] LABCLIA [id number] [place] [id number] [place] Potassium [Moles/Vol] 4.2 mmol/L Normal 3.7-5.1 [facility] Comment on above: Order Comment: Speci men Type: BLOOD SPECIMENOrdering Facility: [facility] Address: [address] [place] [address] Performed By: #### 2 4323-8, 3016-3, , 31787-7 ####[facility] LABCLIA [id number] [place] [address] [place] Protein [Mass/Vol] 6.7 g/dL Normal 6.3-8.0 [facility] Comment on above: Order Comment: Speci men Type: BLOOD SPECIMENOrdering Facility: [facility] Address: [address] [place], [place] [address] Performed By: #### 2 4323-8, 3015-3, , 20586-4 ####[facility] LABIA [id number] [address] [address] [place] Sodium [Moles/Vol] 142 mmol/L Normal 136-144 [facility] Comment on above: Order Comment: Speci men Type: BLOOD SPECIMENOrdering Facility: [facility] Address: [address] [place] [address] Performed By: #### 2 4323-8, 6-3, , ####[facility] LABIA [id number] [place] [address] [place] Urea nitrogen [Mass/Vol] 18 mg/dL Normal 7-21 [facility] Comment on above: Order Comment: Speci men Type: BLOOD SPECIMENOrdering Facility: [facility] Address: [address] [place] [address] Performed By: #### 2 4323-8, 3015-3, , ####[facility] [id number] [place] [address] [place] HbA1c (Bld)on 06-29-2024 Average glucose Estimated from glycated hemoglobin (Bld) [Mass/Vol] 111 mg/dL Normal [facility] Comment on above: Order Comment: Speci men Type: BLOOD SPECIMENOrdering Facility: [facility] Address: [address] [place] [address] Result Comment: eAG: (Estimated average glucose) is a calculated value from HgbA1c and is personal financial representative of the average blood glucose level in the last 2-3 month period. Performed By: #### 5 5454-3 ####[facility] LABIA [id number] [place] [address] [place] HbA1c (Bld) [Mass fraction] 5.5 % Normal 4.3-5.6 [facility] Comment on above: Order Comment: Speci men Type: BLOOD SPECIMENOrdering Facility: [facility] Address: [address] [place] [address] Result Comment: [place] Diabetes Association guidelines indicate that patients with HgbA1c in the range 5.7-6.4% are at increased risk for development of diabetes, and intervention by lifestyle modification may be beneficial. HgbA1c greater or equal to 6.5% is considered diagnostic of diabetes. Performed By: #### 5 5454-3 ####[facility] LABCLIA [id number] [place] [address] [place] Lipid 1996 panelon 5 Cholesterol [Mass/Vol] 185 mg/dL Normal <200 [facility] Comment on above: Order Comment: Perez holden Type: BLOOD SPECIMENOrdering Facility: [facility] Address: [address] [place] [address] Result Comment: <200 mg/dL, Desirable 200-239 mg/dL, Borderline high >239 mg/dL, High Performed By: #### 2 4323-8, 3016-3, 53320-5, 09067-0 ####[facility] LABCLIA [id number] [place] [id number] [place] Cholesterol in HDL [Mass/Vol] 34 mg/dL Low >39 [facility] Comment on above: Order Comment: Perez holden Type: BLOOD SPECIMENOrdering Facility: [facility] Address: [address] [place] [address] Result Comment: 40-5 9 mg/dL, Acceptable >59 mg/dL, High: Negative risk factor for coronary heart disease <40 mg/dL, Low: Positive risk factor for coronary heart disease Performed By: #### 2 4323-8, 3016-3, 27402-4, 07594-8 ####[facility] LABCLIA [id number] [place] [id number] [facility] [place] Cholesterol in LDL [Mass/Vol] 88 mg/dL Normal <100 [facility] Comment on above: Order Comment: Perez holden Type: BLOOD SPECIMENOrdering Facility: [facility] Address: [address] [place] [address] Result Comment: <100 mg/dL, Optimal 100-129 mg/dL, Near optimal/above optimal 130-159 mg/dL, Borderline high 160-189 mg/dL, High >189 mg/dL, Very high Secondary prevention optimal LDL Cholesterol levels are recommended to be <70 mg/dL LDL cholesterol is calculated using the Blake-NIH equation. Performed By: #### 2 4323-8, 6-3, , 90139-0 ####[facility] LABCLIA [id number] [address] [address] [place] Cholesterol in LDL/Cholesterol in HDL [Mass ratio] 2.59 {ratio} High <2.54 [facility] Comment on above: Order Comment: Speci men Type: BLOOD SPECIMENOrdering Facility: [facility] Address: [address] [place] [address] Result Comment: Refe rence: 1. National Cholesterol Education Program ATP III Guideline At-A-Glance Quick Desk Reference: National Heart, Lung, and Blood [place]. National Institutes of Health. 2001: NIH Publication No. 01-3305. 2. An International Atherosclerosis Society position paper: global recommendations for the management of dyslipidemia: executive summary, Atherosclerosis. 2014: 232(2):410-413. Performed By: #### 2 4323-8, 3015-3, , ####[facility] LABCLIA [id number] [address] [address] [place] Cholesterol in VLDL [Mass/Vol] 61 mg/dL High <30 [facility] Comment on above: Order Comment: Speci men Type: BLOOD SPECIMENOrdering Facility: [facility] Address: [address] [place] [address] Performed By: #### 2 4323-8, 6-3, , 58015-0 ####[facility] LABCLIA [id number] [facility] [place] [address] [place] Cholesterol non HDL [Mass/Vol] 151 mg/dL High <130 [facility] Comment on above: Order Comment: Speci men Type: BLOOD SPECIMENOrdering Facility: [facility] Address: [address] [place] [address] Result Comment: <130 mg/dL, Optimal 130-159 mg/dL, Near optimal/above optimal 160-189 mg/dL, Borderline high 190-219 mg/dL, High >219 mg/dL, Very high Secondary prevention optimal non HDL Cholesterol levels are recommended to be <100 mg/dL Performed By: #### 2 4323-8, 3016-3, 15001-5, 89181-6 ####[facility] LABCLIA [id number] [address] [address] [place] Cholesterol.total/Chol esterol in HDL [Mass ratio] 5.44 {ratio} High <5.10 [facility] Comment on above: Order Comment: Speci men Type: BLOOD SPECIMENOrdering Facility: [facility] Address: [address] [place] [address] Performed By: #### 2 4323-8, 6-3, , 38180-2 ####[facility] LABIA [id number] [place] [id number] [place] FASTING TIME 10 hrs Normal [facility] Comment on above: Order Comment: Speci men Type: BLOOD SPECIMENOrdering Facility: [facility] Address: [address] [place] [address] Performed By: #### 2 4323-8, 6-3, , 86242-2 ####[facility] LABIA [id number] [address] [place] [address] [place] Triglyceride [Mass/Vol] 382 mg/dL High <150 [facility] Comment on above: Order Comment: Speci men Type: BLOOD SPECIMENOrdering Facility: [facility] Address: [address] [place] [address] Result Comment: <150 mg/dL, Normal 150-199 mg/dL, Borderline high 200-499 mg/dL, High >499 mg/dL, Very high Performed By: #### 2 4323-8, 3016-3, 15641-8, 16819-4 ####[facility] LABCLIA [id number] [address] [place] [address] [place] Magnesium SerPl-mCncon 06-29 Magnesium [Mass/Vol] 2.0 mg/dL Normal 1.7-2.3 [facility] Comment on above: Order Comment: Speci men Type: BLOOD SPECIMENOrdering Facility: [facility] Address: [address] [place] [address] Performed By: #### 2 4323-8, 6-3, 63254-2, 96346-9 ####[facility] LABCLIA [id number] [address], [place] [address] [place] TSH SerPl-aCncon 06-29-2024 TSH Qn 1.890 m[IU]/L Normal 0.270-4.20 0 [facility] Comment on above: Order Comment: Speci men Type: BLOOD SPECIMENOrdering Facility: [facility] Address: [address] [place] [address] Performed By: #### 2 4323-8, 6-3, 07251-0, 99753-1 ####[facility] LABIA [id number] [address], [place] [address] [place] Urinalysis complete panel (U )on 06-29-2024 Bacteria LM.HPF (Urine sed) [#/Area] Negative Normal Negative [facility] Comment on above: Order Comment: Speci men Type: URINE SPECIMENOrdering Facility: [facility] Address: [address] [place] [address] Performed By: #### 2 4356-8 ####[facility] LABCLIA [id number] [address], [facility] [place] Bilirubin Ql (U) Negative Normal Negative [facility] Comment on above: Order Comment: Speci men Type: URINE SPECIMENOrdering Facility: [facility] Address: [address] [place] [address] Performed By: #### 2 4356-8 ####[facility] LABCLIA [id number] [place] [id number] [place] Clarity (Unsp spec) Clear Normal Clear [facility] Comment on above: Order Comment: Speci men Type: URINE SPECIMENOrdering Facility: [facility] Address: [address] [place] [address] Performed By: #### 2 4356-8 ####[facility] LABCLIA [id number] [place] [address] [place] Color (U) Yellow Normal Yellow [facility] Comment on above: Order Comment: Speci men Type: URINE SPECIMENOrdering Facility: [facility] Address: [address] [place] [address] Performed By: #### 2 4356-8 ####[facility] LABCLIA [id number] [place] [address] [place] Epithelial cells LM.HPF (Urine sed) [#/Area] None Seen Normal [facility] Comment on above: Order Comment: Speci men Type: URINE SPECIMENOrdering Facility: [facility] Address: [address] [place] [address] Performed By: #### 2 4356-8 ####[facility] LABCLIA [id number] [place] [address] [place] Glucose Test strip (U) [Mass/Vol] Trace Abnormal Negative [facility] Comment on above: Order Comment: Speci men Type: URINE SPECIMENOrdering Facility: [facility] Address: [address] [place] [address] Performed By: #### 2 4356-8 ####[facility] LABCLIA [id number] [place] [id number] [place] Hemoglobin Ql (U) Negative Normal Negative [facility] Comment on above: Order Comment: Speci men Type: URINE SPECIMENOrdering Facility: [facility] Address: [address] [place] [address] Performed By: #### 2 4356-8 ####[facility] LABCLIA [id number] [address] [place] [address] [place] Hyaline casts (Urine sed) [#/Area] 0 /[LPF] Normal 0 /LPF [facility] Comment on above: Order Comment: Speci men Type: URINE SPECIMENOrdering Facility: [facility] Address: [address] [place] [address] Performed By: #### 2 4356-8 ####[facility] LABCLIA [id number] [address], [facility] [place] Ketones Ql (U) Negative Normal Negative [facility] Comment on above: Order Comment: Speci men Type: URINE SPECIMENOrdering Facility: [facility] Address: [address] [place] [address] Performed By: #### 2 4356-8 ####[facility] LABCLIA [id number] [address], [place] [address] [place] Leukocyte esterase Test strip Ql (U) 1+ Abnormal Negative [facility] Comment on above: Order Comment: Speci men Type: URINE SPECIMENOrdering Facility: [facility] Address: [address] [place] [address] Performed By: #### 2 4356-8 ####[facility] LABCLIA [id number] [address] [place] [address] [place] Nitrite Ql (U) Negative Normal Negative [facility] Comment on above: Order Comment: Speci men Type: URINE SPECIMENOrdering Facility: [facility] Address: [address] [place] [address] Performed By: #### 2 4356-8 ####[facility] LABCLIA [id number] [place] pH (U) 5.5 [pH] Normal <8.5 [facility] Comment on above: Order Comment: Speci men Type: URINE SPECIMENOrdering Facility: [facility] Address: [address] [place] [address] Performed By: #### 2 4356-8 ####[facility] LABIA [id number] [place] [address] [place] Protein (U) [Mass/Vol] Trace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 [facility] Basophils/100 WBC (Bld) 0.5 % 0-1 [facility] Chloride [Moles/Vol] 107 mmol/L 98-107 [facility] Eosinophils/100 WBC (Bld) 1.8 % 0-5 [facility] Glucose [Mass/Vol] 113 mg/dL 74-106 [facility] Comment on above: Fasting Glucose resu lt from 100 to 125 mg/dL suggests IMPAIRED HOMEOSTASIS per A.D.A. criteria. Hemoglobin (Bld) [Mass/Vol] 11.8 g/dL 12.0-15.0 [facility] Monocytes/100 WBC (Bld) 4.7 % 0-10 [facility] Neutrophils (Bld) [#/Vol] 8.0 10*3/uL 2.0-7.7 [facility] Neutrophils/100 WBC (Bld) 77.2 % 47-70 [facility] Potassium [Moles/Vol] 4.3 mmol/L 3.5-5.1 [facility] Sodium [Moles/Vol] 141 mmol/L 136-145 [facility] WBC (Bld) [#/Vol] 10.4 10*3/uL 4.4-11.0 [facility] Determination of erythrocyte mean corpuscular volume (MCV)Ordered By: Zurdo Howard on 06-04-2023 MCV (RBC) [Entitic vol] 95.3 fL 81-99 [facility] Erythrocyte distribution wid th ratioOrdered By: Zurdo Howard on 06-04-2023 Erythrocyte distribution width (RBC) [Ratio] 14.7 % 11.6-14.6 [facility] Erythrocyte distribution wid th standard deviationOrdered By: Zurdo Howard on 06-04-2023 Erythrocyte distribution width (RBC) [Entitic vol] 50.8 fL 35.1-43.9 [facility] Hematocrit Auto (Bld) [Volum e fraction]Ordered By: Zurdo Howard on 06-04-2023 Hematocrit (Bld) [Volume fraction] 38.3 % 37-47 [facility] Immature granulocytes/100 WB C Auto (Bld)Ordered By: Zurdo Howard on 06-04-2023 Immature granulocytes/100 WBC (Bld) 0.700 % 0.0-0.9 [facility] Comment on above: IG% - Immature Granu locytes (promyelocytes, myelocytes and metamyelocytes) > 1% indicates that a LEFT SHIFT is Present. Laboratory - Chemistry and C hemistry - challengeOrdered By: Zurdo Howard on 06-04-2023 CO2 [Moles/Vol] 31.0 mmol/L 21.0-32.0 [facility] Urea nitrogen/Creatinine [Mass ratio] 15.5 mg/mg 10-20 [facility] Laboratory - Chemistry and C hemistry - challengeOrdered By: Sid Hillman on 06-04-2023 Natriuretic peptide B (Bld) [Mass/Vol] 597.5 pg/mL 0-100 [facility] Laboratory - CoagulationOrde red By: Zurdo Howard on 06-04-2023 INR Coag (Bld) [Relative time] 1.0 {INR} [facility] PT Coag (PPP) [Time] 12.8 s 11.7-14.9 [facility] Laboratory - Hematology and Cell countsOrdered By: Zurdo Howard on 06-04-2023 MCH (RBC) [Entitic mass] 29.4 pg 27.0-32.0 [facility] MCHC (RBC) [Mass/Vol] 30.8 g/dL 32-36 [facility] Nucleated RBC/100 WBC (Bld) [Ratio] 0 % 0-5 [facility] Platelet mean volume (Bld) [Entitic vol] 9.4 fL 6.2-12.0 [facility] Platelets (Bld) [#/Vol] 212 10*3/uL 150-450 [facility] Laboratory - Microbiology an d Antimicrobial susceptibilityOrdered By: Zurdo Howard on 06-04-2023 SARS-CoV-2 (COVID-19) RNA RICK+probe Ql (Unsp spec) [facility] Measurement, pHOrdered By: Nicole Howard on 06-04-2023 pH (Unsp spec) 7.40 [pH] 7.35-7.45 [facility] No Panel InformationOrdered By: Sid Hillman on 06-04-2023 Streptococcus pneumoniae Antigen (M [facility] Troponin I High Sensitivity 22 pg/mL 3.0-54.0 [facility] Comment on above: Please Note: New Olga t Units and Gender Specific Reference Ranges. For more information see Policy Stat Procedure [place] High Sensitivity Troponin (TNIH) and attachments. No Panel InformationOrdered By: Zurdo Howard on 06-04-2023 Arterial Blood Partial Pressure CO2 46.5 mmHg 35-45 [facility] Arterial Blood Partial Pressure O2 50 mmHG 75-100 [facility] Blood Gas Bicarbonate Actual 28.7 mmol/L 22-26 [facility] Blood Gas Oxygen Percent 3.0 [facility] Blood Gas Sample Site R Brach [facility] Blood Gas Specimen Type ART [facility] Blood Gas Vent Mode Not entered [facility] Oxygen Delivery Device Cannula [facility] Estimated Creatinine Clearance Calc 54.27 ml/min [facility] Estimated GFR (MDRD) Amer 81 mL/min >60 [facility] Comment on above: GFR Calc Estimated GFR (MDRD) Non-Af Amer 67 mL/min >60 [facility] Comment on above: Non- GFR Calc Troponin I High Sensitivity 17 pg/mL 3.0-54.0 [facility] Comment on above: Please Note: New Olga t Units and Gender Specific Reference Ranges. For more information see Policy Stat Procedure [place] High Sensitivity Troponin (TNIH) and attachments. RBC Auto (Bld) [#/Vol]Ordere d By: Zurdo Howard on 06-04-2023 RBC (Bld) [#/Vol] 4.02 10*6/uL 4.2-5.4 [facility] Serum or plasma calcium melo urement (mass/volume)Ordered By: Zurdo Howard on 06-04-2023 Calcium [Mass/Vol] 8.5 mg/dL 8.5-10.1 [facility] Serum or plasma creatinine m easurement (mass/volume)Ordered By: Zurdo Howard on 06-04-2023 Creatinine [Mass/Vol] 0.90 mg/dL 0.55-1.02 [facility] Comment on above: The validity of the calculated GFR & GFRAA in patients over 70 years has not been determined. Clinical correlation is essential. Serum or plasma urea nitroge n measurement (mass/volume)Ordered By: Zurdo Howard on 06-04-2023 Urea nitrogen [Mass/Vol] 14 mg/dL 7-18 [facility] Thin prep Papanicolaou smear with manual screeningOrdered By: Zurdo Howard on 06-04-2023 Thin prep Papanicolaou smear with manual screening 3 5-15 [facility] Urine Legionella pneumophila antigen detectionOrdered By: Sid Hillman on 06-04-2023 L. pneumophila Ag Ql (U) [facility] Absolute lymphocyte countOrd ered By: Linwood Joe on 05-18-2023 Lymphocytes Auto (Unsp spec) [#/Vol] 1.98 10*3/uL 0.83-4.51 [facility] Automated lymphocyte count a s percentage of total leukocytesOrdered By: Linwood Joe on 05-18-2023 Lymphocytes/100 WBC Auto (Unsp spec) 25.5 % 19-41 [facility] Basophil percentageOrdered B y: Linwood Joe on 05-18-2023 Basophils/100 WBC (Bld) 0.9 % 0-1 [facility] Chloride [Moles/Vol] 102 mmol/L 98-107 [facility] Eosinophils/100 WBC (Bld) 4.3 % 0-5 [facility] Glucose [Mass/Vol] 115 mg/dL 74-106 [facility] Comment on above: Fasting Glucose resu lt from 100 to 125 mg/dL suggests IMPAIRED HOMEOSTASIS per A.D.A. criteria. Hemoglobin (Bld) [Mass/Vol] 10.7 g/dL 12.0-15.0 [facility] Monocytes/100 WBC (Bld) 11.0 % 0-10 [facility] Neutrophils (Bld) [#/Vol] 4.5 10*3/uL 2.0-7.7 [facility] Neutrophils/100 WBC (Bld) 57.4 % 47-70 [facility] Potassium [Moles/Vol] 3.8 mmol/L 3.5-5.1 [facility] Sodium [Moles/Vol] 138 mmol/L 136-145 [facility] WBC (Bld) [#/Vol] 7.8 10*3/uL 4.4-11.0 [facility] Determination of erythrocyte mean corpuscular volume (MCV)Ordered By: Linwood Joe on 05-18-2023 MCV (RBC) [Entitic vol] 92.3 fL 81-99 [facility] Erythrocyte distribution wid th ratioOrdered By: Linwood Joe on 05-18-2023 Erythrocyte distribution width (RBC) [Ratio] 13.2 % 11.6-14.6 [facility] Erythrocyte distribution wid th standard deviationOrdered By: Linwood Joe on 05-18-2023 Erythrocyte distribution width (RBC) [Entitic vol] 44.8 fL 35.1-43.9 [facility] Hematocrit Auto (Bld) [Volum e fraction]Ordered By: Linwood Joe on 05-18-2023 Hematocrit (Bld) [Volume fraction] 33.6 % 37-47 [facility] Immature granulocytes/100 WB C Auto (Bld)Ordered By: Linwood Joe on 05-18-2023 Immature granulocytes/100 WBC (Bld) 0.900 % 0.0-0.9 [facility] Comment on above: IG% - Immature Granu locytes (promyelocytes, myelocytes and metamyelocytes) > 1% indicates that a LEFT SHIFT is Present. Laboratory - Chemistry and C hemistry - challengeOrdered By: Linwood Joe on 05-18-2023 CO2 [Moles/Vol] 33.0 mmol/L 21.0-32.0 [facility] Urea nitrogen/Creatinine [Mass ratio] 20.7 mg/mg 10-20 [facility] Laboratory - Hematology and Cell countsOrdered By: Linwood Joe on 05-18-2023 MCH (RBC) [Entitic mass] 29.4 pg 27.0-32.0 [facility] MCHC (RBC) [Mass/Vol] 31.8 g/dL 32-36 [facility] Nucleated RBC/100 WBC (Bld) [Ratio] 0 % 0-5 [facility] Platelet mean volume (Bld) [Entitic vol] 9.0 fL 6.2-12.0 [facility] Platelets (Bld) [#/Vol] 533 10*3/uL 150-450 [facility] No Panel InformationOrdered By: Linwood Joe on 05-18-2023 Estimated Creatinine Clearance Calc 47.84 ml/min [facility] Estimated GFR (MDRD) Amer 79 mL/min >60 [facility] Comment on above: GFR Calc Estimated GFR (MDRD) Non-Af Amer 66 mL/min >60 [facility] Comment on above: Non- GFR Calc RBC Auto (Bld) [#/Vol]Ordere d By: Linwood Joe on 05-18-2023 RBC (Bld) [#/Vol] 3.64 10*6/uL 4.2-5.4 [facility] Serum or plasma calcium melo urement (mass/volume)Ordered By: Linwood Joe on 05-18-2023 Calcium [Mass/Vol] 9.1 mg/dL 8.5-10.1 [facility] Serum or plasma creatinine m easurement (mass/volume)Ordered By: Linwood Joe on 05-18-2023 Creatinine [Mass/Vol] 0.92 mg/dL 0.55-1.02 [facility] Comment on above: The validity of the calculated GFR & GFRAA in patients over 70 years has not been determined. Clinical correlation is essential. Serum or plasma urea nitroge n measurement (mass/volume)Ordered By: Linwood Joe on 05-18-2023 Urea nitrogen [Mass/Vol] 19 mg/dL 7-18 [facility] Thin prep Papanicolaou smear with manual screeningOrdered By: Linwood Joe on 05-18-2023 Thin prep Papanicolaou smear with manual screening 3 5-15 [facility] Basophil percentageOrdered B y: Sid Hillman on 05-16-2023 Bilirubin [Mass/Vol] 0.50 mg/dL 0.20-1.00 [facility] Comment on above: For patients on eltr ombopag therapy, use of Dimension [place] TBIL is not recommended. Protein [Mass/Vol] 7.1 g/dL 6.4-8.2 [facility] Gram stain for investigation of transfusion reactionOrdered By: Merrick White on 05-16-2023 Microscopic observation Gram stain Nom (Unsp spec) [facility] Laboratory - Chemistry and C hemistry - challengeOrdered By: Sid Hillman on 05-16-2023 Albumin/Globulin [Mass ratio] 0.4 {ratio} 0.9-2.4 [facility] ALP [Catalytic activity/Vol] 90 U/L 45-117 [facility] ALT [Catalytic activity/Vol] 51 U/L 13-56 [facility] Globulin (S) [Mass/Vol] 4.9 g/dL 2.2-4.2 [facility] Microbial respiratory cultur eOrdered By: Merrick White on 05-16-2023 Bacteria identified Respiratory culture Nom (Unsp spec) [facility] Stool gastrointestinal hemog lobin detection by immunologic methodOrdered By: Sid Hillman on 05-16-2023 Lower GI hemoglobin IA Ql (Stl) [facility] Stool lactoferrin detection by immunoassayOrdered By: Sid Hillman on 05-16-2023 Lactoferrin IA Ql (Stl) [facility] Thin prep Papanicolaou smear with manual screeningOrdered By: Sid Hillman on 05-16-2023 Thin prep Papanicolaou smear with manual screening 2.2 g/dL 3.2-5.0 [facility] Thin prep Papanicolaou smear with manual screening 42 U/L 15-37 [facility] Basophil percentageOrdered B y: Sid Hillman on 05-13-2023 Basophil percentage 3.1 mg/dL 2.5-4.9 [facility] Giardia lamblia ag stool EIA Ordered By: Sid Hillman on 05-13-2023 G. lamblia Ag IA Ql (Stl) Negative [facility] Comment on above: TEST RESULTS LIMITSG iardia lamblia Ag, EIA Negative Negative TESTING PERFORMED AT [facility]. ORIGINAL REPORT ON FILE IN LAB CONTAINS ADDITIONAL TEST SITE INFORMATION. Laboratory - Chemistry and C hemistry - challengeOrdered By: Sid Hillman on 05-13-2023 Magnesium [Mass/Vol] 1.8 mg/dL 1.6-2.6 [facility] Direct bilirubinOrdered By: Himanshu Aldana on 05-12-2023 Bilirubin.direct [Mass/Vol] 0.13 mg/dL 0.00-0.30 [facility] Laboratory - CoagulationOrde red By: Himanshu Aldana on 05-12-2023 INR Coag (Bld) [Relative time] 1.3 {INR} [facility] PT Coag (PPP) [Time] 16.1 s 11.7-14.9 [facility] Serum or plasma thyroid stim ulating hormone (TSH) measurement (units/volume)Ordered By: Himanshu Aldana on 05-12-2023 TSH Qn 1.33 uIU/mL 0.358-3.74 [facility] Absolute lymphocyte countOrd ered By: Juan Celis on 05-11-2023 Lymphocytes Auto (Unsp spec) [#/Vol] 1.45 10*3/uL 0.83-4.51 [facility] Amorphous sediment detection in urine sediment by light microscopyOrdered By: Juan Celis on 05-11-2023 Amorphous sediment LM Ql (Urine sed) 1+ [facility] Automated lymphocyte count a s percentage of total leukocytesOrdered By: Juan Celis on 05-11-2023 Lymphocytes/100 WBC Auto (Unsp spec) 10.8 % 19-41 [facility] Basophil percentageOrdered B y: Juan Celis on 05-11-2023 Lactate [Moles/Vol] 1.4 mmol/L 0.4-2.0 [facility] Basophil percentage 0 SEEN /hpf 0-5 [facility] Basophils/100 WBC (Bld) 0.2 % 0-1 [facility] Bilirubin [Mass/Vol] 0.60 mg/dL 0.20-1.00 [facility] Comment on above: For patients on eltr ombopag therapy, use of Dimension [place] TBIL is not recommended. Chloride [Moles/Vol] 96 mmol/L 98-107 [facility] Eosinophils/100 WBC (Bld) 0.0 % 0-5 [facility] Glucose [Mass/Vol] 136 mg/dL 74-106 [facility] Comment on above: Fasting Glucose resu lt greater than or equal to 126 mg/dL suggests DIABETES MELLITUS per A.D.A. criteria. Hemoglobin (Bld) [Mass/Vol] 14.0 g/dL 12.0-15.0 [facility] Lactate [Moles/Vol] 2.4 mmol/L 0.4-2.0 [facility] Comment on above: Critical Result(s) C alled at: 12:39:40 05/11/2023 by: Good Webb. To Krishan Hendrickson RN (ER). Results read back by same. Monocytes/100 WBC (Bld) 8.6 % 0-10 [facility] Neutrophils (Bld) [#/Vol] 10.5 10*3/uL 2.0-7.7 [facility] Neutrophils/100 WBC (Bld) 78.4 % 47-70 [facility] Potassium [Moles/Vol] 2.8 mmol/L 3.5-5.1 [facility] Protein [Mass/Vol] 8.4 g/dL 6.4-8.2 [facility] Sodium [Moles/Vol] 136 mmol/L 136-145 [facility] WBC (Bld) [#/Vol] 13.4 10*3/uL 4.4-11.0 [facility] Bilirubin Test strip Ql (U)O rdered By: Juan Celis on 05-11-2023 Bilirubin Ql (U) Negative Negative [facility] Blood manual differential co mment interpretation (narrative result)Ordered By: Juan Celis on 05-11-2023 Manual differential comment Jameel (Bld) [Interp] SCANNED [facility] Determination of erythrocyte mean corpuscular volume (MCV)Ordered By: Juan Celis on 05-11-2023 MCV (RBC) [Entitic vol] 88.0 fL 81-99 [facility] Erythrocyte distribution wid th ratioOrdered By: Juan Celis on 05-11-2023 Erythrocyte distribution width (RBC) [Ratio] 13.2 % 11.6-14.6 [facility] Erythrocyte distribution wid th standard deviationOrdered By: Juan Celis on 05-11-2023 Erythrocyte distribution width (RBC) [Entitic vol] 42.7 fL 35.1-43.9 [facility] Hematocrit Auto (Bld) [Volum e fraction]Ordered By: Juan Celis on 05-11-2023 Hematocrit (Bld) [Volume fraction] 41.7 % 37-47 [facility] Immature granulocytes/100 WB C Auto (Bld)Ordered By: Juan Celis on 05-11-2023 Immature granulocytes/100 WBC (Bld) 2.000 % 0.0-0.9 [facility] Comment on above: IG% - Immature Granu locytes (promyelocytes, myelocytes and metamyelocytes) > 1% indicates that a LEFT SHIFT is Present. Ketones Test strip Ql (U)Ord ered By: Juan Celis on 05-11-2023 Ketones Ql (U) 50 mg/dl Negative [facility] Laboratory - Chemistry and C hemistry - challengeOrdered By: Juan Celis on 05-11-2023 Albumin/Globulin [Mass ratio] 0.6 {ratio} 0.9-2.4 [facility] ALP [Catalytic activity/Vol] 135 U/L 45-117 [facility] ALT [Catalytic activity/Vol] 22 U/L 13-56 [facility] CO2 [Moles/Vol] 28.0 mmol/L 21.0-32.0 [facility] Globulin (S) [Mass/Vol] 5.4 g/dL 2.2-4.2 [facility] Lipase [Catalytic activity/Vol] 14 U/L 13-75 [facility] Comment on above: Please note:LIPASE r evised reference range effective 22. New Lipase methodology. Expected to produce lower values than the previous assay method. NEW Reference Range: 13 - 75 U/L Urea nitrogen/Creatinine [Mass ratio] 13.3 mg/mg 10-20 [facility] Laboratory - Hematology and Cell countsOrdered By: Juan Celis on 05-11-2023 MCH (RBC) [Entitic mass] 29.5 pg 27.0-32.0 [facility] MCHC (RBC) [Mass/Vol] 33.6 g/dL 32-36 [facility] Nucleated RBC/100 WBC (Bld) [Ratio] 0 % 0-5 [facility] Platelet mean volume (Bld) [Entitic vol] 9.4 fL 6.2-12.0 [facility] Platelets (Bld) [#/Vol] 394 10*3/uL 150-450 [facility] Laboratory - Microbiology an d Antimicrobial susceptibilityOrdered By: Juan Celis on 05-11-2023 Bacteria identified Cx Nom (Bld) No growth in 5 days. [facility] SARS-CoV-2 (COVID-19) RNA RICK+probe Ql (Unsp spec) RSV [facility] Mucus LM Ql (Urine sed)Order ed By: Juan Celis on 05-11-2023 Mucus Ql (Urine sed) 0 SEEN /hpf [facility] Nitrite Test strip Ql (U)Ord ered By: Juan Celis on 05-11-2023 Nitrite Ql (U) Negative Negative [facility] No Panel InformationOrdered By: Juan Celis on 05-11-2023 Urine RBC 0 SEEN /hpf 0-5 [facility] Estimated Creatinine Clearance Calc 56.58 ml/min [facility] Estimated GFR (MDRD) Amer 90 mL/min >60 [facility] Comment on above: GFR Calc Estimated GFR (MDRD) Non-Af Amer 75 mL/min >60 [facility] Comment on above: Non- GFR Calc Protein Test strip Ql (U)Ord ered By: Juan Celis on 05-11-2023 Protein Ql (U) 100 mg/dl Negative [facility] RBC Auto (Bld) [#/Vol]Ordere d By: Juan Celis on 05-11-2023 RBC (Bld) [#/Vol] 4.74 10*6/uL 4.2-5.4 [facility] Serum or plasma calcium melo urement (mass/volume)Ordered By: Juan Celis on 05-11-2023 Calcium [Mass/Vol] 9.4 mg/dL 8.5-10.1 [facility] Serum or plasma creatinine m easurement (mass/volume)Ordered By: Juan Celis on 05-11-2023 Creatinine [Mass/Vol] 0.82 mg/dL 0.55-1.02 [facility] Comment on above: The validity of the calculated GFR & GFRAA in patients over 70 years has not been determined. Clinical correlation is essential. Serum or plasma urea nitroge n measurement (mass/volume)Ordered By: Juan Celis on 05-11-2023 Urea nitrogen [Mass/Vol] 11 mg/dL 7-18 [facility] Squamous epithelial cells de tection in urine sediment by light microscopyOrdered By: Juan Celis on 05-11-2023 Epithelial cells.squamous LM Ql (Urine sed) 0 SEEN /hpf 5-10 [facility] Thin prep Papanicolaou smear with manual screeningOrdered By: Juan Celis on 05-11-2023 Thin prep Papanicolaou smear with manual screening 3.0 g/dL 3.2-5.0 [facility] Thin prep Papanicolaou smear with manual screening 41 U/L 15-37 [facility] Thin prep Papanicolaou smear with manual screening 12 5-15 [facility] Urine blood detectionOrdered By: Juan Celis on 05-11-2023 RBC Ql (U) 10 /ul Negative [facility] Urine clarityOrdered By: Brittany Celis on 05-11-2023 Clarity (U) Clear Clear [facility] Urine color determinationOrd ered By: Juan Celis on 05-11-2023 Color (U) Yellow Yellow [facility] Urine glucose detectionOrder ed By: Juan Celis on 05-11-2023 Glucose Ql (U) Normal mg/dl Normal [facility] Urine leukocyte esterase det ection by dipstickOrdered By: Juan Celis on 05-11-2023 Leukocyte esterase Test strip Ql (U) Negative Negative [facility] Urine pHOrdered By: Juan irving on 05-11-2023 pH (U) 5.0 [pH] 5.0 - 8.0 [facility] Urine sediment bacteria coun t by microscopy (number/high power field)Ordered By: Juan Celis on 05-11-2023 Bacteria LM.HPF (Urine sed) [#/Area] 0 /[HPF] None Seen [facility] Urine specific gravity measu rementOrdered By: Juan Celis on 05-11-2023 Specific gravity (U) [Rel density] 1.010 1.002-1.03 0 [facility] Urine urobilinogen measureme ntOrdered By: Juan Celis on 05-11-2023 Urobilinogen Ql (U) Normal mg/dl Normal [facility] XR Hand - bilateral PA and L ateral and Obliqueon 04-30-2023 IMPRESSION: 1. Osteoarthritis of the bilateral hands Coil Builder: ABBY Transcribe Date/Time: Apr 30 2023 7:31A Dictated by : VITOR ROSALES MD This examination was interpreted and the report reviewed and electronically signed by: VITOR ROSALES MD on Apr 30 2023 7:32AM [facility] DIVISION OF RADIOLOGY * * *Final Report* [...] poss images TECHNIQUE: XR HAND 3V PA/LAT/OBL SIDNYE COMPARISON: Radiographs 01/04/2011 RESULT: There is generalized [...] for carpal cyst. DIVISION OF RADIOLOGY Provider, [facility] - 04/30/2023 * * *Final Report* * [...] IMPRESSION: 1. Osteoarthritis of the bilateral hands Coil Builder: ABBY Transcribe Date/Time: Apr 30 2023 7:31A Dictated by : VITOR ROSALES MD This examination was interpreted and the report reviewed and electronically signed by: VITOR ROSALES MD on Apr 30 2023 7:32AM EST [facility] XR Hand - bilateral PA and L ateral and ObliqueOrdered By: [facility] Provider on 04-30-2023 [facility] XR Hand - bilateral PA and L ateral and Obliqueon 04-29-2023 Radiology Study observation (narrative) [facility] Absolute lymphocyte countOrd ered By: Sánchez Bhatti on 11-14-2022 Lymphocytes Auto (Unsp spec) [#/Vol] 1.56 10*3/uL 0.83-4.51 [facility] Basophil percentageOrdered B y: Sánchez Bhatti on 11-14-2022 Basophil percentage 25-50 SEEN /hpf 0-5 [facility] Basophils/100 WBC (Bld) 0.4 % 0-1 [facility] Bilirubin [Mass/Vol] 0.80 mg/dL 0.20-1.00 [facility] Comment on above: For patients on eltr ombopag therapy, use of Dimension [place] TBIL is not recommended. Chloride [Moles/Vol] 104 mmol/L 98-107 [facility] Eosinophils/100 WBC (Bld) 0.9 % 0-5 [facility] Glucose [Mass/Vol] 125 mg/dL 74-106 [facility] Comment on above: Fasting Glucose resu lt from 100 to 125 mg/dL suggests IMPAIRED HOMEOSTASIS per A.D.A. criteria. Neutrophils (Bld) [#/Vol] 6.9 10*3/uL 2.0-7.7 [facility] Neutrophils/100 WBC (Bld) 74.9 % 47-70 [facility] Potassium [Moles/Vol] 3.3 mmol/L 3.5-5.1 [facility] Protein [Mass/Vol] 8.9 g/dL 6.4-8.2 [facility] Sodium [Moles/Vol] 139 mmol/L 136-145 [facility] WBC (Bld) [#/Vol] 9.2 10*3/uL 4.4-11.0 [facility] Bilirubin Test strip Ql (U)O rdered By: Sánchez Bhatti on 11-14-2022 Bilirubin Ql (U) Negative Negative [facility] Blood erythrocytes count (nu mber/volume)Ordered By: Sánchez Bhatti on 11-14-2022 RBC (Bld) [#/Vol] 5.25 10*6/uL 4.2-5.4 [facility] Blood hemoglobin measurement (mass/volume)Ordered By: Sánchez Bhatti on 11-14-2022 Hemoglobin (Bld) [Mass/Vol] 15.3 g/dL 12.0-15.0 [facility] Blood lymphocytes/100 leukoc ytesOrdered By: Sánchez Bhatti on 11-14-2022 Lymphocytes/100 WBC (Bld) 17.0 % 19-41 [facility] Blood monocytes/100 leukocyt esOrdered By: Sánchez Bhatti on 11-14-2022 Monocytes/100 WBC (Bld) 6.4 % 0-10 [facility] Blood platelet mean volumeOr dered By: Sánchez Bhatti on 11-14-2022 Platelet mean volume (Bld) [Entitic vol] 10.3 fL 6.2-12.0 [facility] Determination of erythrocyte mean corpuscular volume (MCV)Ordered By: Sánchez Bhatti on 11-14-2022 MCV (RBC) [Entitic vol] 89.0 fL 81-99 [facility] Direct bilirubinOrdered By: Sánchez Bhatti on 11-14-2022 Bilirubin.direct [Mass/Vol] 0.24 mg/dL 0.00-0.30 [facility] Hematocrit Auto (Bld) [Volum e fraction]Ordered By: Sánchez Bhatti on 11-14-2022 Hematocrit (Bld) [Volume fraction] 46.7 % 37-47 [facility] Ketones Test strip Ql (U)Ord ered By: Sánchez Bhatti on 11-14-2022 Ketones Ql (U) 15 mg/dl Negative [facility] Laboratory - Chemistry and C hemistry - challengeOrdered By: Sánchez Bhatti on 11-14-2022 ALP [Catalytic activity/Vol] 119 U/L 45-117 [facility] ALT [Catalytic activity/Vol] 21 U/L 13-56 [facility] CO2 [Moles/Vol] 30.0 mmol/L 21.0-32.0 [facility] Globulin (S) [Mass/Vol] 4.5 g/dL 2.2-4.2 [facility] Lipase [Catalytic activity/Vol] 38 U/L 13-75 [facility] Comment on above: Please note:LIPASE r evised reference range effective 22. New Lipase methodology. Expected to produce lower values than the previous assay method. NEW Reference Range: 13 - 75 U/L Urea nitrogen/Creatinine [Mass ratio] 13.9 mg/mg 10-20 [facility] - Hematology and Cell countsOrdered By: Sánchez Bhatti on 11-14-2022 Erythrocyte distribution width (RBC) [Entitic vol] 41.5 fL 35.1-43.9 [facility] Erythrocyte distribution width (RBC) [Ratio] 12.7 % 11.6-14.6 [facility] Immature granulocytes/100 WBC (Bld) 0.400 % 0.0-0.9 [facility] Comment on above: IG% - Immature Granu locytes (promyelocytes, myelocytes and metamyelocytes) > 1% indicates that a LEFT SHIFT is Present. MCH (RBC) [Entitic mass] 29.1 pg 27.0-32.0 [facility] Nucleated RBC/100 WBC (Bld) [Ratio] 0 % 0-5 [facility] MCHC Auto (RBC) [Mass/Vol]Or dered By: Sánchez Bhatti on 11-14-2022 MCHC (RBC) [Mass/Vol] 32.8 g/dL 32-36 [facility] Mucus LM Ql (Urine sed)Order ed By: Sánchez Bhatti on 11-14-2022 Mucus Ql (Urine sed) 0 SEEN /hpf [facility] Nitrite Test strip Ql (U)Ord ered By: Sánchez Bhatti on 11-14-2022 Nitrite Ql (U) Negative Negative [facility] No Panel InformationOrdered By: Sánchez Bhatti on 11-14-2022 Estimated GFR (MDRD) Amer 71 mL/min >60 [facility] Comment on above: GFR Calc Estimated GFR (MDRD) Non-Af Amer 59 mL/min >60 [facility] Comment on above: Non- GFR Calc Platelets bldOrdered By: Manohar Bhatti on 11-14-2022 Platelets (Bld) [#/Vol] 234 10*3/uL 150-450 [facility] Protein Test strip Ql (U)Ord ered By: Sánchez Bhatti on 11-14-2022 Protein Ql (U) 100 mg/dl Negative [facility] Serum or plasma albumin melo urement (mass/volume)Ordered By: Sánchez Bhatti on 11-14-2022 Albumin [Mass/Vol] 4.4 g/dL 3.2-5.0 [facility] Serum or plasma calcium melo urement (mass/volume)Ordered By: Sánchez Bhatti on 11-14-2022 Calcium [Mass/Vol] 10.2 mg/dL 8.5-10.1 [facility] Serum or plasma creatinine m easurement (mass/volume)Ordered By: Sánchez Bhatti on 11-14-2022 Creatinine [Mass/Vol] 1.01 mg/dL 0.55-1.02 [facility] Comment on above: The validity of the calculated GFR & GFRAA in patients over 70 years has not been determined. Clinical correlation is essential. Serum or plasma urea nitroge n measurement (mass/volume)Ordered By: Sánchez Bhatti on 11-14-2022 Urea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 Performed By: #### 2 99644 ####[facility],[address] [place] [address],[place] [facility] [address] Urine, bacteria in sediment NONE Normal [facility] Comment on above: Performed By: #### 2 30874 ####[facility],[address] [place] [address],[place] [facility] [address] Urine, casts in sediment NONE Normal [facility] Comment on above: Performed By: #### 2 93327 ####[facility],[address] [place] [address],[place] [facility] [address] Urine, clarity CLEAR Normal NORMAL: CLEAR [facility] Comment on above: Performed By: #### 2 01158 ####[facility],[address] [place] [address],[place] [facility] [address] Urine, color p.yel Normal NORMAL: YELLOW [facility] Comment on above: Performed By: #### 2 73575 ####[facility],[address] [place] [address],[place] [facility] [address] Urine, crystals in sediment NONE Normal [facility] Comment on above: Performed By: #### 2 15762 ####[facility],[address] [place] [address],[place] [facility] [address] Urine, nitrite presence Negative Normal NORMAL: NEGATIVE [facility] Comment on above: Performed By: #### 2 10320 ####[facility],[address] [place] [address] Urine, yeast presence in sediment NONE Normal [facility] Comment on above: Performed By: #### 2 64843 ####[facility],[address] [place] [address] Urobilinog NORM Normal NORMAL: NORMAL [facility] Comment on above: Performed By: #### 2 10755 ####[facility],[address] [place] [address] WBC (Leukocytes) 1-5 Normal 0-5/hpf [facility] Comment on above: Performed By: #### 2 23232 ####[facility],[address] [place] [address] WBC (Leukocytes) 25 10*3/uL Abnormal NORMAL: NEGATIVE [facility] Comment on above: Performed By: #### 2 38403 ####[facility],[address] [place] [address] Quant Pain Panel, Uron 09-11 Acetaminophen mass conc <5 Normal <5 [facility] Comment on above: Result Comment: 6-MA M (6-monoacetylmorphine, also known as 6-acetylmorphine) is a unique metabolite of heroin. Presence of 6-JEAN CLAUDE indicates use of heroin. 6-JEAN CLAUDE is further metabolized to morphine and absence of 6-JEAN CLAUDE does not rule out the use of heroin. Performed By: #### U QNTPP ####[place] [phone] Amphetamine, Urine 1823 ng/mL High <5 [facility] Comment on above: Result Comment: Amph etamine may arise from amphetamine containing drugs (eg. Adderall and Benzedrine) or by metabolism of methamphetamine. Clobenzorex, famprofazone, fenethylline, fenproporex, and mefenorex contain amphetamine pro-drugs which can be metabolized to amphetamine. Selegiline is metabolized to both amphetamine and methamphetamine. Performed By: #### U QNTPP ####[address] [phone] Benzoylecognine, Ur <24 Normal <24 [facility] Comment on above: Result Comment: Lan oylecognine is a metabolite of cocaine. Performed By: #### U QNTPP ####[address] [phone] Buprenorphine, Ur <20 Normal <20 [facility] Comment on above: Performed By: #### U QNTPP ####[place] [phone] Cannabinoid, Urine <16 Normal <16 [facility] Comment on above: Result Comment: Tetr ahydrocannabinol carboxylic acid (THCA) is a metabolite of slyax-7-wldpuomkgmugbeogmtez which is the main active component of marijuana. Performed By: #### U QNTPP ####[place] [phone] Codeine, Urine <11 Normal <11 [facility] Comment on above: Performed By: #### U QNTPP ####[place] [phone] Creatinine, Urine >50 Normal >19 [facility] Comment on above: Performed By: #### U QNTPP ####[place] [phone] Desmethyltramadol,Ur <20 Normal <20 [facility] Comment on above: Result Comment: Desm ethyltramadol is a metabolite of tramadol. Performed By: #### U QNTPP ####[place] [phone] Dihydrocodeine, Ur <5 Normal <5 [facility] Comment on above: Performed By: #### U QNTPP ####[place] [phone] EDDP, Urine <6 Normal <6 [facility] Comment on above: Result Comment: EDDP is a metabolite of methadone. Performed By: #### U QNTPP ####[place] [phone] Fentanyl, Urine <6 Normal <6 [facility] Comment on above: Performed By: #### U QNTPP ####[place] [phone] Hydrocodone, Urine <8 Normal <8 [facility] Comment on above: Result Comment: Hydr ocodone is a metabolite of dihydrocodeine. Performed By: #### U QNTPP ####[phone] Hydromorphone, Ur <5 Normal <5 [facility] Comment on above: Result Comment: Hydr omorphone is a metabolite of hydrocodone. Performed By: #### U QNTPP ####[phone] Methadone, Urine <16 Normal <16 [facility] Comment on above: Performed By: #### U QNTPP ####[phone] Methamphetamine, Ur <8 Normal <8 [facility] Comment on above: Performed By: #### U QNTPP ####[phone] Morphine, Urine <10 Normal <10 [facility] Comment on above: Result Comment: Morp selma is a metabolite of codeine and heroin. Performed By: #### U QNTPP ####[phone] Norbuprenorphine, Ur <20 Normal <20 [facility] Comment on above: Result Comment: Norb uprenorphine is the primary active metabolite of buprenorphine. Performed By: #### U QNTPP ####[phone] Norfentanyl, Urine <6 Normal <6 [facility] Comment on above: Result Comment: Norf entanyl is a metabolite of fentanyl. Performed By: #### U QNTPP ####[place] [phone] Note This test is for Med ical use only. Normal [facility] Comment on above: Result Comment: This test was developed and its performance characteristics determined by [facility] [place] ([facility]).It has not been cleared or approved by the FDA. -[facility] is regulated under CLIA as qualified to perform high-complexity testing.This test is used for clinical purposes. It should not be regarded as investigational or for research. Performed By: #### U QNTPP ####[place] [phone] Oxidants, Urine Negative Normal Negative [facility] Comment on above: Performed By: #### U QNTPP ####[place] [phone] Oxycodone, Urine <5 Normal <5 [facility] Comment on above: Performed By: #### U QNTPP ####[phone] Oxymorphone, Urine <5 Normal <5 [facility] Comment on above: Result Comment: Oxym orphone is a metabolite of oxycodone. Performed By: #### U QNTPP ####[place] [phone] Specific Taylor,Ur 1.005-1.020 Normal 1.005-1. 02 0 [facility] Comment on above: Performed By: #### U QNTPP ####[phone] Specimen Quality Specimen quality res ults within acceptable limits. Normal [facility] Comment on above: Performed By: #### U QNTPP ####[place] [phone] Tramadol, Urine <25 Normal <25 [facility] Comment on above: Performed By: #### U QNTPP ####[place] [phone] Urine, pH 4-10 Normal 4-10 [facility] Comment on above: Performed By: #### U QNTPP ####[facility] [address] [place], [place] [phone] Vital Signs Date Time Vital Sign Value Performing Clinician Facility 08-14-2024 10:17-0400 Body height 144.78 cm DALI OLDER VINYL DIPPER-C Work Phone: [facility] 08-14-2024 10:17-0400 Body mass index (BMI) [Ratio] 29.8 kg/m2 DALI OLDER [employer] Work Phone: [facility] 08-14-2024 10:17-0400 Body temperature 96.5 [degF] DALI OLDER [employer]YL DIPPER[employer]C Work Phone: [facility] 08-14-2024 10:17-0400 Body weight 62.59 kg DALI OLDER [employer]YL [employer]PER[employer]C Work Phone: [facility] 08-14-2024 10:17-0400 Diastolic blood pressure 101 mm[Hg] DALI OLDER [employer]YL D[employer]PER[employer]C Work Phone: [facility] 08-14-2024 10:17-0400 Heart rate 76 /min DALI OLDER V[employer]YL DIPPER[employer]C Work Phone: [facility] 08-14-2024 10:17-0400 Inhaled oxygen flow rate 4 L/min DALI OLDER [employer]YL [employer]PER[employer]C Work Phone: [facility] 08-14-2024 10:17-0400 Respiratory rate 16 /min DALI OLDER [employer]YL [employer]PER[employer]C Work Phone: [facility] 08-14-2024 10:17-0400 SaO2% (BldA) [Mass fraction] 95 % DALI OLDER [employer]YL D[employer]PER[employer]C Work Phone: [facility] 08-14-2024 10:17-0400 Systolic blood pressure 164 mm[Hg] DALI OLDER VINYL DIPPER-C Work Phone: [facility] 08-10-2024 14:15-0400 Body mass index (BMI) [Ratio] 28.95 kg/m2 Velvet Palacio MD Work Phone: [facility] 08-10-2024 14:15-0400 Body weight 61.74 kg Velvet Palacio MD Work Phone: [facility] 08-10-2024 14:15-0400 Diastolic blood pressure 115 mm[Hg] Velvet Palacio MD Work Phone: [facility] 08-10-2024 14:15-0400 Heart rate 85 /min Velvet Palacio MD Work Phone: [facility] 08-10-2024 14:15-0400 Respiratory rate 20 /min Velvet Palacio MD Work Phone: [facility] 08-10-2024 14:15-0400 SaO2% (BldA) [Mass fraction] 95 % Velvet Palacio MD Work Phone: [facility] Comment on above: 4L/M continuous nasal canula 08-10-2024 14:15-0400 Systolic blood pressure 195 mm[Hg] Velvet Palacio MD Work Phone: [facility] 08-06-2024 06:58-0400 Body temperature 98.7 [degF] DALI OLDER [employer]YL DIPPER-C Work Phone: [facility] 08-06-2024 06:58-0400 Diastolic blood pressure 80 mm[Hg] DALI OLDER VINYL DIPPER-C Work Phone: [facility] 08-06-2024 06:58-0400 Heart rate 101 /min DALI OLDER VINYL DIPPER-C Work Phone: [facility] 08-06-2024 06:58-0400 Respiratory rate 22 /min DALI OLDER V[employer]YL DIPPER-C Work Phone: [facility] 08-06-2024 06:58-0400 SaO2% (BldA) [Mass fraction] 97 % DALI OLDER VINYL DIPPER-C Work Phone: [facility] 08-06-2024 06:58-0400 Systolic blood pressure 158 mm[Hg] DALI OLDER VINYL DIPPER-C Work Phone: [facility] 08-06-2024 06:00-0400 Inhaled oxygen flow rate 2 L/min DALI OLDER VINYL DIPPER-C Work Phone: [facility] 08-06-2024 03:44-0400 Body height 144.78 cm DALI OLDER [employer]YL D[employer]PER[employer]C Work Phone: [facility] 08-06-2024 03:44-0400 Body mass index (BMI) [Ratio] 35 kg/m2 DALI OLDER [employer]YL D[employer]PER[employer]C Work Phone: [facility] 08-06-2024 03:44-0400 Body weight 73.4 kg DALI OLDER [employer]YL [employer]PER[employer]C Work Phone: [facility] 08-05-2024 13:55-0400 Body temperature 98.2 [degF] DALI OLDER V[employer]YL DIPPER-C Work Phone: [facility] 08-05-2024 13:55-0400 Diastolic blood pressure 96 mm[Hg] DALI OLDER VINYL DIPPER-C Work Phone: [facility] 08-05-2024 13:55-0400 Heart rate 108 /min DALI OLDER V[employer]YL DIPPER-C Work Phone: [facility] 08-05-2024 13:55-0400 Inhaled oxygen flow rate 4 L/min DALI OLDER VINYL DIPPER-C Work Phone: [facility] 08-05-2024 13:55-0400 Respiratory rate 20 /min DALI OLDER VINYL DIPPER-C Work Phone: [facility] 08-05-2024 13:55-0400 SaO2% (BldA) [Mass fraction] 94 % DALI OLDER VINYL DIPPER-C Work Phone: [facility] 08-05-2024 13:55-0400 Systolic blood pressure 151 mm[Hg] DALI OLDER V[employer]YL DIPPER-C Work Phone: [facility] 08-03-2024 09:53-0400 Body height 144.78 cm DALI OLDER VINYL DIPPER-C Work Phone: [facility] 08-03-2024 09:53-0400 Body weight 64.6 kg DALI OLDER [employer]YL [employer]C Work Phone: 8(636)241-[address] [place] [address] 07-26-2024 19:46-0400 Body mass index (BMI) [Ratio] 30.8 kg/m2 DALI OLDER [employer] Work Phone: 2(130)050-171560 [place] [address] 07-26-2024 19:45-0400 Body temperature 99.3 [degF] DALI OLDER [employer] Work Phone: 2(571)724-557660 [place] [address] 07-26-2024 19:45-0400 Diastolic blood pressure 72 mm[Hg] DALI OLDER [employer]C Work Phone: 0(012)530-188960 [place] [address] 07-26-2024 19:45-0400 Heart rate 88 /min DALI OLDER [employer] Work Phone: 5(666)291-528460 [place] [address] 07-26-2024 19:45-0400 Respiratory rate 18 /min DALI OLDER [employer] Work Phone: 9(782)835-245260 [place] [address] 07-26-2024 19:45-0400 SaO2% (BldA) [Mass fraction] 95 % DALI OLDER [employer] Work Phone: 9(194)302-829460 [place] [address] 07-26-2024 19:45-0400 Systolic blood pressure 116 mm[Hg] DALI OLDER [employer]YL [employer]C Work Phone: 7(572)154-724560 [place] [address] 07-26-2024 16:14-0400 Body mass index (BMI) [Ratio] 31.8 kg/m2 DALI OLDER [employer]YL [employer] Work Phone: 9(299)[phone] [place] [address] 07-26-2024 16:14-0400 Body weight 66.85 kg DALI OLDER VINYL DIPPER-C Work Phone: [phone] [place] [address] 07-26-2024 15:28-0400 Inhaled oxygen flow rate 2 L/min DALI OLDER V[employer]YL DIPPER-C Work Phone: [phone] [place] [address] 07-26-2024 13:28-0400 Body height 144.78 cm DALI OLDER [employer]YL DIPPER-C Work Phone: [phone] [place] [address] 06-29-2024 14:58-0400 Body mass index (BMI) [Ratio] 30.83 kg/m2 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BULK PLANT AGENT Work Phone: [facility] 06-29-2024 14:58-0400 Body weight 65.77 kg 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BULK PLANT AGENT Work Phone: [facility] 06-29-2024 14:58-0400 Diastolic blood pressure 72 mm[Hg] 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BULK PLANT AGENT Work Phone: [facility] 06-29-2024 14:58-0400 Heart rate 72 /min 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BULK PLANT AGENT Work Phone: [facility] 06-29-2024 14:58-0400 Respiratory rate 16 /min 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BULK PLANT AGENT Work Phone: [facility] 06-29-2024 14:58-0400 SaO2% (BldA) [Mass fraction] 98 % 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BULK PLANT AGENT Work Phone: [facility] 06-29-2024 14:58-0400 Systolic blood pressure 116 mm[Hg] 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BULK PLANT AGENT Work Phone: [facility] 06-19-2024 10:09-0400 Body mass index (BMI) [Ratio] 30.2 kg/m2 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BULK PLANT AGENT Work Phone: [facility] 06-19-2024 10:09-0400 Body weight 64.41 kg 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BULK PLANT AGENT Work Phone: [facility] 06-19-2024 10:09-0400 Diastolic blood pressure 66 mm[Hg] 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BULK PLANT AGENT Work Phone: [facility] 06-19-2024 10:09-0400 Heart rate 68 /min 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BULK PLANT AGENT Work Phone: [facility] 06-19-2024 10:09-0400 Respiratory rate 16 /min 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BULK PLANT AGENT Work Phone: [facility] 06-19-2024 10:09-0400 SaO2% (BldA) [Mass fraction] 94 % 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BULK PLANT AGENT Work Phone: [facility] 06-19-2024 10:09-0400 Systolic blood pressure 128 mm[Hg] 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BULK PLANT AGENT Work Phone: [facility] 05-08-2024 15:40-0500 Body mass index (BMI) [Ratio] 30.96 kg/m2 Velvet Palacio MD Work Phone: [facility] 05-08-2024 15:40-0500 Body weight 66.04 kg Velvet Palacio MD Work Phone: [facility] 05-08-2024 15:40-0500 Diastolic blood pressure 83 mm[Hg] Velvet Palacio MD Work Phone: [facility] 05-08-2024 15:40-0500 Heart rate 81 /min Velvet Palacio MD Work Phone: [facility] 05-08-2024 15:40-0500 Respiratory rate 20 /min Velvet Palacio MD Work Phone: [facility] 05-08-2024 15:40-0500 SaO2% (BldA) [Mass fraction] 96 % Velvet Palacio MD Work Phone: [facility] Comment on above: O2: 4 L/min 05-08-2024 15:40-0500 Systolic blood pressure 143 mm[Hg] Velvet Palacio MD Work Phone: [facility] 05-03-2024 14:33-0500 Body temperature 98.7 [degF] DALI OLDER VINYL DIPPER-C Work Phone: [facility] 05-03-2024 14:33-0500 Diastolic blood pressure 90 mm[Hg] DALI OLDER V[employer]YL D[employer]PER[employer]C Work Phone: [facility] 05-03-2024 14:33-0500 Heart rate 79 /min DALI OLDER [employer] D[employer]C Work Phone: [facility] 05-03-2024 14:33-0500 Inhaled oxygen flow rate 2 L/min DALI OLDER [employer] D[employer] Work Phone: [facility] 05-03-2024 14:33-0500 Respiratory rate 16 /min DALI OLDER V[employer] D[employer]C Work Phone: [facility] 05-03-2024 14:33-0500 SaO2% (BldA) [Mass fraction] 99 % DALI OLDER [employer] D[employer]C Work Phone: [facility] 05-03-2024 14:33-0500 Systolic blood pressure 124 mm[Hg] DALI OLDER V[employer] D[employer]PER[employer]C Work Phone: [facility] 05-02-2024 10:33-0500 Body weight 66.2 kg DALI OLDER [employer] D[employer]C Work Phone: [facility] 05-01-2024 18:44-0500 Body mass index (BMI) [Ratio] 31.6 kg/m2 DALI OLDER [employer] D[employer] Work Phone: [facility] 04-02-2024 10:56-0500 Body mass index (BMI) [Ratio] 30.2 kg/m2 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B[employer]K PLANT AGENT Work Phone: [facility] 04-02-2024 10:56-0500 Body weight 64.41 kg 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B[employer]K PLANT AGENT Work Phone: [facility] 04-02-2024 10:56-0500 Diastolic blood pressure 82 mm[Hg] 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BULK PLANT AGENT Work Phone: [facility] 04-02-2024 10:56-0500 Heart rate 76 /min 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BULK PLANT AGENT Work Phone: [facility] 04-02-2024 10:56-0500 Respiratory rate 16 /min 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BULK PLANT AGENT Work Phone: [facility] 04-02-2024 10:56-0500 SaO2% (BldA) [Mass fraction] 95 % 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B[employer]K PLANT AGENT Work Phone: [facility] 04-02-2024 10:56-0500 Systolic blood pressure 136 mm[Hg] 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BULK PLANT AGENT Work Phone: [facility] 01-16-2024 14:33-0500 Heart rate 85 /min Nuris Prebish 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 ASSOCIATE.BULK PLANT AGENT Work Phone: [facility] 01-16-2024 14:33-0500 Respiratory rate 16 /min Nuris Prebish 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 ASSOCIATE.BULK PLANT AGENT Work Phone: [facility] 01-16-2024 14:33-0500 SaO2% (BldA) [Mass fraction] 95 % Nuris Prebish 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 ASSOCIATE.BULK PLANT AGENT Work Phone: [facility] 12-11-2023 13:55-0400 Body mass index (BMI) [Ratio] 27.43 kg/m2 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B[employer]K PLANT AGENT Work Phone: [facility] 12-11-2023 13:55-0400 Body weight 58.51 kg 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B[employer]K PLANT AGENT Work Phone: [facility] 12-11-2023 13:55-0400 Diastolic blood pressure 80 mm[Hg] 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BULK PLANT AGENT Work Phone: [facility] 12-11-2023 13:55-0400 Heart rate 77 /min 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BULK PLANT AGENT Work Phone: [facility] 12-11-2023 13:55-0400 Respiratory rate 16 /min 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BULK PLANT AGENT Work Phone: [facility] 12-11-2023 13:55-0400 SaO2% (BldA) [Mass fraction] 97 % 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BULK PLANT AGENT Work Phone: [facility] 12-11-2023 13:55-0400 Systolic blood pressure 128 mm[Hg] 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BULK PLANT AGENT Work Phone: [facility] 11-12-2023 13:03-0400 Diastolic blood pressure 106 mm[Hg] Mari Martinez 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 ASSOCIATE.BULK PLANT AGENT Work Phone: [facility] 11-12-2023 13:03-0400 Heart rate 85 /min Mari Martinez 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 ASSOCIATE.BULK PLANT AGENT Work Phone: [facility] 11-12-2023 13:03-0400 Systolic blood pressure 174 mm[Hg] Mari Juan 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 ASSOCIATE.BULK PLANT AGENT Work Phone: [facility] 11-12-2023 13:01-0400 Body height 146.1 cm Mari Martinez 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 ASSOCIATE.BULK PLANT AGENT Work Phone: [facility] 11-12-2023 13:01-0400 Body mass index (BMI) [Ratio] 27.01 kg/m2 Mari Martinez 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 ASSOCIATE.BULK PLANT AGENT Work Phone: [facility] 11-12-2023 13:01-0400 Body temperature 98.01 [degF] Mari Juan 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 ASSOCIATE.BULK PLANT AGENT Work Phone: [facility] 11-12-2023 13:01-0400 Body weight 57.61 kg Mari Martinez 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 ASSOCIATE.BULK PLANT AGENT Work Phone: [facility] 11-06-2023 14:28-0400 Diastolic blood pressure 92 mm[Hg] 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BULK PLANT AGENT Work Phone: [facility] 11-06-2023 14:28-0400 Systolic blood pressure 138 mm[Hg] 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BULK PLANT AGENT Work Phone: [facility] 11-06-2023 14:13-0400 Body mass index (BMI) [Ratio] 27.43 kg/m2 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BULK PLANT AGENT Work Phone: [facility] 11-06-2023 14:13-0400 Body weight 58.51 kg 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BULK PLANT AGENT Work Phone: [facility] 11-06-2023 14:13-0400 Heart rate 88 /min 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BULK PLANT AGENT Work Phone: [facility] 11-06-2023 14:13-0400 Respiratory rate 16 /min 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BULK PLANT AGENT Work Phone: [facility] 11-06-2023 14:13-0400 SaO2% (BldA) [Mass fraction] 86 % 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BULK PLANT AGENT Work Phone: [facility] 10-22-2023 12:43-0400 Diastolic blood pressure 86 mm[Hg] Ines Bogner PA-C Work Phone: [facility] 10-22-2023 12:43-0400 Systolic blood pressure 162 mm[Hg] Ines Bogner PA-C Work Phone: [facility] 10-22-2023 12:16-0400 Body height 146.1 cm Ines Bogner PA-C Work Phone: [facility] 10-22-2023 12:16-0400 Body mass index (BMI) [Ratio] 27.22 kg/m2 Ines Bogner PA-C Work Phone: [facility] 10-22-2023 12:16-0400 Body weight 58.06 kg Ines Bogner PA-C Work Phone: [facility] 10-22-2023 12:16-0400 Heart rate 95 /min Ines Bogner PA-C Work Phone: [facility] 10-22-2023 12:16-0400 Respiratory rate 16 /min Ines Bogner PA-C Work Phone: [facility] 10-22-2023 12:16-0400 SaO2% (BldA) [Mass fraction] 98 % Ines Bogner PA-C Work Phone: [facility] Comment on above: on 6 liters of O2 09-27-2023 11:06-0400 Body mass index (BMI) [Ratio] 26.72 kg/m2 Kush Guthrie APRN.BULK PLANT AGENT Work Phone: [facility] 09-27-2023 11:06-0400 Body temperature 97.59 [degF] Kush Guthrie APRN.BULK PLANT AGENT Work Phone: [facility] 09-27-2023 11:06-0400 Body weight 57 kg Kush Guthrie APRN.BULK PLANT AGENT Work Phone: [facility] 09-27-2023 11:06-0400 Diastolic blood pressure 92 mm[Hg] Kuhs [place]end[place]bury 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 ASSOCIATE.BULK PLANT AGENT Work Phone: [facility] 09-27-2023 11:06-0400 Heart rate 73 /min Kush [place] 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 ASSOCIATE.BULK PLANT AGENT Work Phone: [facility] 09-27-2023 11:06-0400 Respiratory rate 20 /min Kush [place] 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 ASSOCIATE.BULK PLANT AGENT Work Phone: [facility] 09-27-2023 11:06-0400 SaO2% (BldA) [Mass fraction] 99 % Kush [place] 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 ASSOCIATE.BULK PLANT AGENT Work Phone: [facility] 09-27-2023 11:06-0400 Systolic blood pressure 147 mm[Hg] Kush [place] 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 ASSOCIATE.BULK PLANT AGENT Work Phone: [facility] 07-05-2023 15:07-0400 SaO2% (BldA) [Mass fraction] 99 % Radha Willams MD Work Phone: [facility] 06-10-2023 13:49-0400 Diastolic blood pressure 100 mm[Hg] Fernando Fernandez 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 ASSOCIATE.RECOVERY COLLECTOR Work Phone: [facility] 06-10-2023 13:49-0400 Heart rate 87 /min Fernando Fernandez 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 ASSOCIATE.RECOVERY COLLECTOR Work Phone: [facility] 06-10-2023 13:49-0400 Systolic blood pressure 155 mm[Hg] Fernando Fernandez 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 ASSOCIATE.RECOVERY COLLECTOR Work Phone: [facility] 06-10-2023 13:42-0400 Body weight 58.51 kg Fernando Fernandez 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 ASSOCIATE.RECOVERY COLLECTOR Work Phone: [facility] 06-10-2023 13:42-0400 Respiratory rate 16 /min Fernando Fernandez 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 ASSOCIATE.RECOVERY COLLECTOR Work Phone: [facility] 06-10-2023 13:42-0400 SaO2% (BldA) [Mass fraction] 99 % Fernando Fernandez 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 ASSOCIATE.RECOVERY COLLECTOR Work Phone: [facility] 06-06-2023 13:07-0400 Body temperature 98.2 [degF] VINYL DIPPER-C DALI OLDER Work Phone: [facility] 06-06-2023 13:07-0400 Diastolic blood pressure 85 mm[Hg] VINYL DIPPER-C DALI OLDER Work Phone: [facility] 06-06-2023 13:07-0400 Heart rate 90 /min V[employer]YL DIPPER-C DALI OLDER Work Phone: [facility] 06-06-2023 13:07-0400 Inhaled oxygen flow rate 2 L/min V[employer]YL DIPPER-C DALI OLDER Work Phone: [facility] 06-06-2023 13:07-0400 Respiratory rate 18 /min V[employer]YL DIPPER-C DALI OLDER Work Phone: [facility] 06-06-2023 13:07-0400 SaO2% (BldA) [Mass fraction] 92 % V[employer]YL DIPPER-C DALI OLDER Work Phone: [facility] 06-06-2023 13:07-0400 Systolic blood pressure 117 mm[Hg] VINYL DIPPER-C DALI OLDER Work Phone: [facility] 06-05-2023 15:48-0400 Body height 154.94 cm VINYL DIPPER-C DALI OLDER Work Phone: [facility] 06-05-2023 15:48-0400 Body weight 58.7 kg VINYL DIPPER-C DALI OLDER Work Phone: [facility] 06-04-2023 17:09-0400 Body mass index (BMI) [Ratio] 24.4 kg/m2 VINYL DIPPER-C DALI OLDER Work Phone: [facility] 06-04-2023 16:13-0400 Inhaled oxygen flow rate 6 L/min VINYL DIPPER-C DALI OLDER Work Phone: [facility] 06-04-2023 16:13-0400 SaO2% (BldA) [Mass fraction] 93 % VINYL DIPPER-C DALI OLDER Work Phone: [facility] 06-04-2023 16:07-0400 Heart rate 94 /min VINYL DIPPER-C DALI OLDER Work Phone: [facility] 06-04-2023 16:07-0400 Respiratory rate 26 /min VINYL DIPPER-C DALI OLDER Work Phone: [facility] 06-04-2023 16:00-0400 Diastolic blood pressure 172 mm[Hg] VINYL DIPPER-C DALI OLDER Work Phone: [facility] 06-04-2023 16:00-0400 Inhaled oxygen concentration 40 % VINYL DIPPER-C DALI OLDER Work Phone: [facility] 06-04-2023 16:00-0400 Systolic blood pressure 212 mm[Hg] VINYL DIPPER-C DALI OLDER Work Phone: [facility] 06-04-2023 15:00-0400 Body temperature 98 [degF] VINYL DIPPER-C DALI OLDER Work Phone: [facility] 06-04-2023 11:14-0400 Body height 154.94 cm VINYL DIPPER-C DALI OLDER Work Phone: [facility] 06-04-2023 11:14-0400 Body mass index (BMI) [Ratio] 25.3 kg/m2 VINYL DIPPER-C DALI OLDER Work Phone: [facility] 06-04-2023 11:14-0400 Body weight 60.9 kg VINYL DIPPER-C DALI OLDER Work Phone: [facility] 05-20-2023 12:07-0400 Inhaled oxygen flow rate 3 L/min VINYL DIPPER-C DALI OLDER Work Phone: [facility] 05-20-2023 12:07-0400 SaO2% (BldA) [Mass fraction] 90 % VINYL DIPPER-C DALI OLDER Work Phone: [facility] 05-20-2023 11:50-0400 Body temperature 98.1 [degF] VINYL DIPPER-C DALI OLDER Work Phone: [facility] 05-20-2023 11:50-0400 Diastolic blood pressure 79 mm[Hg] VINYL DIPPER-C DALI OLDER Work Phone: [facility] 05-20-2023 11:50-0400 Heart rate 87 /min VINYL DIPPER-C DALI OLDER Work Phone: [facility] 05-20-2023 11:50-0400 Respiratory rate 18 /min VINYL DIPPER-C DALI OLDER Work Phone: [facility] 05-20-2023 11:50-0400 Systolic blood pressure 134 mm[Hg] VINYL DIPPER-C DALI OLDER Work Phone: [facility] 05-17-2023 14:40-0400 Body height 154.94 cm VINYL DIPPER-C DALI OLDER Work Phone: [facility] 05-17-2023 14:40-0400 Body weight 53.6 kg VINYL DIPPER-C DALI OLDER Work Phone: [facility] 05-11-2023 14:51-0500 Body mass index (BMI) [Ratio] 22.3 kg/m2 VINYL DIPPER-C DALI OLDER Work Phone: [facility] 05-11-2023 13:45-0500 Diastolic blood pressure 96 mm[Hg] [facility] 05-11-2023 13:45-0500 Heart rate 112 /min [facility] 05-11-2023 13:45-0500 Respiratory rate 16 /min [facility] 05-11-2023 13:45-0500 SaO2% (BldA) [Mass fraction] 97 % [facility] 05-11-2023 13:45-0500 Systolic blood pressure 152 mm[Hg] [facility] 05-11-2023 13:11-0500 Inhaled oxygen flow rate 2 L/min [facility] 05-11-2023 11:15-0500 Body height 152.4 cm [facility] 05-11-2023 11:15-0500 Body mass index (BMI) [Ratio] 24.8 kg/m2 [facility] 05-11-2023 11:15-0500 Body temperature 97.4 [degF] [facility] 05-11-2023 11:15-0500 Body weight 57.7 kg [facility] 05-02-2023 09:43-0500 Diastolic blood pressure 110 mm[Hg] 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BULK PLANT AGENT Work Phone: [facility] 05-02-2023 09:43-0500 Systolic blood pressure 175 mm[Hg] 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BULK PLANT AGENT Work Phone: [facility] 05-02-2023 09:34-0500 Body weight 57.61 kg 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BULK PLANT AGENT Work Phone: [facility] 05-02-2023 09:34-0500 Heart rate 84 /min 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BULK PLANT AGENT Work Phone: [facility] 05-02-2023 09:34-0500 Respiratory rate 16 /min 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BULK PLANT AGENT Work Phone: [facility] 05-02-2023 09:34-0500 SaO2% (BldA) [Mass fraction] 97 % Dlai 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.BULK PLANT AGENT Work Phone: [facility] 11-14-2022 15:05-0400 Diastolic blood pressure 81 mm[Hg] [facility] 11-14-2022 15:05-0400 Heart rate 79 /min [facility] 11-14-2022 15:05-0400 Systolic blood pressure 148 mm[Hg] [facility] 11-14-2022 10:47-0400 Body height 154.94 cm [facility] 11-14-2022 10:47-0400 Body temperature 96.5 [degF] [facility] 11-14-2022 10:47-0400 Respiratory rate 20 /min [facility] 11-14-2022 10:47-0400 SaO2% (BldA) [Mass fraction] 100 % [facility] 10-10-2022 16:00-0400 Respiratory rate 16 /min [facility] 10-10-2022 14:29-0400 Body temperature 97.5 [degF] [facility] 10-10-2022 14:29-0400 Diastolic blood pressure 80 mm[Hg] [facility] 10-10-2022 14:29-0400 Heart rate 53 /min [facility] 10-10-2022 14:29-0400 SaO2% (BldA) [Mass fraction] 100 % [facility] 10-10-2022 14:29-0400 Systolic blood pressure 120 mm[Hg] [facility] 10-09-2022 15:42-0400 Body mass index (BMI) [Ratio] 20.9 kg/m2 [facility] 10-09-2022 15:42-0400 Body weight 50.4 kg [facility] 10-01-2022 08:30-0400 Body temperature 97.81 [degF] 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BULK PLANT AGENT Work Phone: [facility] 10-01-2022 08:30-0400 Diastolic blood pressure 78 mm[Hg] 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BULK PLANT AGENT Work Phone: [facility] 10-01-2022 08:30-0400 Heart rate 68 /min 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BULK PLANT AGENT Work Phone: [facility] 10-01-2022 08:30-0400 Respiratory rate 16 /min 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BULK PLANT AGENT Work Phone: [facility] 10-01-2022 08:30-0400 SaO2% (BldA) [Mass fraction] 96 % 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BULK PLANT AGENT Work Phone: [facility] 10-01-2022 08:30-0400 Systolic blood pressure 118 mm[Hg] 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BULK PLANT AGENT Work Phone: [facility] 01-31-2022 10:44-0500 Body weight 58.06 kg 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BULK PLANT AGENT Work Phone: [facility] 01-31-2022 10:44-0500 Diastolic blood pressure 80 mm[Hg] 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BULK PLANT AGENT Work Phone: [facility] 01-31-2022 10:44-0500 Heart rate 72 /min 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BULK PLANT AGENT Work Phone: [facility] 01-31-2022 10:44-0500 Respiratory rate 16 /min 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BULK PLANT AGENT Work Phone: [facility] 01-31-2022 10:44-0500 Systolic blood pressure 128 mm[Hg] 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BULK PLANT AGENT Work Phone: [facility] 01-03-2022 13:02-0400 Body weight 55.79 kg 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BULK PLANT AGENT Work Phone: [facility] 01-03-2022 13:02-0400 Diastolic blood pressure 80 mm[Hg] 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BULK PLANT AGENT Work Phone: [facility] 01-03-2022 13:02-0400 Heart rate 80 /min 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BULK PLANT AGENT Work Phone: [facility] 01-03-2022 13:02-0400 Respiratory rate 16 /min Adli 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.BULK PLANT AGENT Work Phone: [facility] 01-03-2022 13:02-0400 Systolic blood pressure 128 mm[Hg] 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BULK PLANT AGENT Work Phone: [facility] 07-26-2021 14:24-0400 Diastolic blood pressure 93 mm[Hg] 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BULK PLANT AGENT Work Phone: [facility] 07-26-2021 14:24-0400 Systolic blood pressure 154 mm[Hg] 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BULK PLANT AGENT Work Phone: [facility] 07-26-2021 13:17-0400 Body weight 58.97 kg 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BULK PLANT AGENT Work Phone: [facility] 07-26-2021 13:17-0400 Heart rate 88 /min 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BULK PLANT AGENT Work Phone: [facility] 07-26-2021 13:17-0400 Respiratory rate 16 /min 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BULK PLANT AGENT Work Phone: [facility] 06-26-2021 14:09-0400 Diastolic blood pressure 88 mm[Hg] Dali 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 ASSOCIATE.BULK PLANT AGENT Work Phone: [facility] 06-26-2021 14:09-0400 Systolic blood pressure 138 mm[Hg] Dali 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 ASSOCIATE.BULK PLANT AGENT Work Phone: [facility] 06-26-2021 13:22-0400 Body weight 60.78 kg Dali 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 ASSOCIATE.BULK PLANT AGENT Work Phone: [facility] 06-26-2021 13:22-0400 Heart rate 72 /min Dali 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 ASSOCIATE.BULK PLANT AGENT Work Phone: [facility] 06-26-2021 13:22-0400 Respiratory rate 16 /min Dali 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 ASSOCIATE.BULK PLANT AGENT Work Phone: [facility] Encounters Encounter Date Encounter Type Care Provider Facility Start: 08-17-2024 Emergency department patient visit [facility] Facility:[facility] Start: 08-14-2024 End: 08-14-[address] Merrick White MD -Medical Out Work Phone: Start: 08-14-2024 End: 08-14-2024 ambulatory [facility] VINYL DIPPER-C Work Phone: [facility] Work Phone: Start: 08-11-2024 End: 08-13-2024 Telephone encounter Velvet Palacio MD Work Phone: [facility] [place] Comment on above: PT plan of care Start: 08-10-2024 End: 08-10-2024 Office outpatient visit 25 minutes Velvet Palacio MD Work Phone: [facility] [place] Comment on above: Hospital discharge f ollow-up (Primary Dx); MRSA bacteremia; Pain syndrome, chronic; Essential hypertension; Hyperlipidemia, unspecified hyperlipidemia type; Moderate episode of recurrent major depressive disorder (HCC); Anxiety; Gastroesophageal reflux disease without esophagitis Start: 08-10-2024 End: 08-10-2024 Telephone encounter Velvet Palacio MD Work Phone: [facility] Comment on above: OT POC; Blood Pressu re Check verbal orders drug to drug interac tions, duplicate therapy Start: 08-10-2024 End: 08-10-2024 ambulatory SELF Facility:[facility] Start: 08-06-2024 End: 08-07-2024 Telephone encounter Velvet Palacio MD Work Phone: [facility] [place] Comment on above: Jail Plan of Care; Medication Issues Start: 08-06-2024 End: 08-06-2024 Emergency department patient visit [facility] [place] Work Phone: -Emergency Department Work Phone: Start: 08-05-2024 End: 08-05-2024 Telephone encounter Velvet Palacio MD Work Phone: [facility] Comment on above: home health calling Start: 08-05-2024 Non-patient / Non-visit [facility] Work Phone: Start: 08-04-2024 Non-patient / Non-visit [facility] Work Phone: Start: 08-03-2024 Non-patient / Non-visit [facility] Work Phone: Start: 08-02-2024 Non-patient / Non-visit Dr. Sid Hillman MD [facility] Work Phone: Start: 08-02-2024 Non-patient / Non-visit Dr. Sam angela MD -[facility] Start: 08-01-2024 Non-patient / [facility] Start: 08-01-2024 Non-patient / Non-visit Dr. Sid Hillman MD [facility] Work Phone: Start: 07-31-2024 Non-patient / [facility] Start: 07-31-2024 Non-patient / Non-visit Dr. Sarah Daniels MD [facility] Work Phone: Start: 07-30-2024 [facility] [place] Start: 07-30-2024 Non-patient / Non-visit Dr. Sam angela MD [facility] Start: 07-30-2024 Non-patient / Non-visit Dr. Sarah Daniels [facility] In[facility] Work Phone: Start: 07-29-2024 Non-patient / Non-visit Dr. Sarah Daniels [facility] Work Phone: Start: 07-29-2024 Non-patient / Non-visit Dr. Elizabeth Bass MD [facility] Start: 07-28-2024 Non-patient / Non-visit Dr. Sarah Daniels [facility] In[facility] Phys[facility] Work Phone: Start: 07-28-2024 Non-patient / Non-visit Dr. Elizabeth Bass MD [facility] Start: 07-27-2024 Non-patient / Non-visit Dr. Sarah Daniels [facility] Inpatient Physicians Work Phone: Start: 07-27-2024 Non-patient / Non-visit Dr. Elizabeth Bass MD [facility] Start: 07-26-2024 Non-patient / Non-visit Dr. Linwood dixon [facility] Inpatient Physicians Work Phone: Start: 07-26-2024 ambulatory Linwood Joe Facility:[facility] [place] Start: 07-26-2024 End: 08-05-2024 Evaluation and management of inpatient Dr. Linwood Joe DO -Medical Surgical 3 Work Phone: Start: 07-24-2024 End: 07-28-2024 Telephone encounter Velvet Palacio MD Work Phone: Internal Medicine [place] Comment on above: Request for informat ion (from [facility]) Start: 07-17-2024 End: 07-17-2024 Refill Dali Rice APRN.BULK PLANT AGENT Work Phone: Internal Medicine [place] Comment on above: Refill Request Start: 07-09-2024 End: 07-09-2024 ambulatory DALI [facility] Facility:[facility] Start: 07-09-2024 End: 07-09-2024 Subsequent hospital visit by physician Kirss [facility] ([facility]) Work Phone: Cat Scan Comment on above: Memory change [R41.3 ] Start: 07-06-2024 End: 07-08-2024 Refill Velvet Palacio MD Work Phone: Internal Medicine [place] Comment on above: Refill Request order for nebulizer supplies Start: 07-01-2024 End: 07-02-2024 Follow-up encounter Dali Rice APRN.CNP Work Phone: [facility] [place] Start: 06-30-2024 End: 07-01-2024 Telephone encounter Dali Rice APRN.CNP Work Phone: Internal [facility] [place] Comment on above: Results, Lab Start: 06-29-2024 End: 06-29-2024 Office outpatient visit 25 minutes Dali Rice APRN.CNP Work Phone: Internal Medicine [place] Comment on above: Memory change (Prima ry Dx); Light sensitivity; Migraine without aura, not intractable, without status migrainosus; On home oxygen therapy; Uncomplicated asthma, unspecified asthma severity, unspecified whether persistent (HCC); Marijuana use; History of substance use Start: 06-29-2024 End: 06-29-2024 ambulatory VELVET PALACIO Facility:[facility] Start: 06-19-2024 End: 06-19-2024 Subsequent hospital visit by physician Eder [facility] [place] Work Phone: Radiology Comment on above: Shortness of breath [R06.02] Start: 06-19-2024 End: 06-19-2024 Patient encounter procedure Dali Rice APRN.CNP Work Phone: Internal Medicine [place] Comment on above: Shortness of breath (Primary Dx); Moderate persistent asthma without complication (HCC); Chronic obstructive pulmonary disease, unspecified COPD type (HCC); Memory change; Dependence on supplemental oxygen Start: 06-19-2024 End: 06-19-2024 ambulatory DALI OLDER Facility:[facility] Start: 06-17-2024 End: 06-17-2024 Refill Vickie Barth PA-C Work Phone: Orthopaedics Comment on above: Refill Request Start: 06-16-2024 End: 06-19-2024 ambulatory Velvet Palacio MD Work Phone: Internal Medicine [facility] [place] Start: 06-14-2024 End: 06-17-2024 Refill Velvet Palacio MD Work Phone: Internal Medicine [place] Comment on above: Refill Request Start: 06-01-2024 End: 06-01-2024 Refill Velvet Palacio MD Work Phone: Internal Medicine [place] Comment on above: Refill Request Start: 05-23-2024 End: 05-23-2024 ambulatory Sreekanth Spears RN NURSE [employer] Comment on above: Medication Problem Opened In Error Start: 05-18-2024 End: 05-18-2024 Telephone encounter Velvet Palacio MD Work Phone: Internal Medicine [place] Comment on above: Refill Request Start: 05-12-2024 End: 05-12-2024 Telephone encounter Velvet Palacio MD Work Phone: Internal Medicine [place] Comment on above: [facility] - request from patient. Start: 05-09-2024 End: 05-12-2024 Telephone encounter Velvet Palacio MD Work Phone: Internal Medicine [place] Comment on above: Handicap Placard Req uest; DME Requests Start: 05-08-2024 End: 05-08-2024 ambulatory VELVET PALACIO Facility:[facility] Start: 05-08-2024 End: 05-08-2024 Transitional care manage srvc 7 day discharge Velvet Palacio MD Work Phone: Internal Medicine [place] Comment on above: Hospital discharge f ollow-up (Primary Dx); COPD with exacerbation (HCC); Essential hypertension; Hyperlipidemia, unspecified hyperlipidemia type; Gastroesophageal reflux disease without esophagitis; Stage 3b chronic kidney disease (HCC); Moderate episode of recurrent major depressive disorder (HCC) Start: 05-05-2024 End: 05-05-2024 Telephone encounter Velvet Palacio MD Work Phone: Internal Medicine [place] Comment on above: Patient Request Start: 05-04-2024 End: 05-04-2024 Patient Outreach Velvet Palacio MD Work Phone: Internal Medicine [place] Comment on above: Transition Of Care Refill Request Start: 05-03-2024 Non-patient / Non-visit Dr. Lasha Aldana MD -[place] [facility] Work Phone: Start: 05-02-2024 Non-patient / Non-visit Dr. Lasha Aldana MD -[place] [facility] Work Phone: Start: 05-01-2024 Non-patient / Non-visit Dr. Linwood dixon -[place] [facility] Work Phone: Start: 05-01-2024 ambulatory Linwood Joe Facility:[facility] [place] Start: 05-01-2024 End: 05-03-2024 Evaluation and management of inpatient Dr. Himanshu Aldana MD -Progressive Care Unit Work Phone: Start: 04-24-2024 End: 04-24-2024 Refill Velvet Palacio MD Work Phone: Internal Medicine [place] Comment on above: Refill Request Start: 04-16-2024 End: 04-16-2024 Refill Velvet Palacio MD Work Phone: Internal Medicine [place] Comment on above: Refill Request Start: 04-15-2024 End: 04-16-2024 Telephone encounter Dali Rice APRN.BULK PLANT AGENT Work Phone: Internal Medicine [place] Comment on above: Patient Question Start: 04-13-2024 End: 04-13-2024 Telephone encounter Velvet Palacio MD Work Phone: Internal Medicine [place] Comment on above: Patient Request Start: 04-02-2024 End: 04-02-2024 Patient encounter procedure Dali Rice APRN.BULK PLANT AGENT Work Phone: Internal Medicine [place] Comment on above: Headaches (Primary D x); Pain syndrome, chronic; Fibromyalgia; Essential hypertension; Mixed hyperlipidemia Start: 04-02-2024 End: 04-02-2024 ambulatory [facility] Facility:[facility] Start: 03-31-2024 End: 05-08-2024 Refill Dali Rice 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 ASSOCIATE.BULK PLANT AGENT Work Phone: Internal Medicine [place] Comment on above: Refill Request Start: 03-30-2024 End: 03-30-2024 Refill Velvet Palacio MD Work Phone: [address] [place] [address] Comment on above: Refill Request Start: 03-30-2024 End: 03-30-[address] Lux Hurley MD -Radiology [facility] Work Phone: Start: 03-30-2024 End: 03-30-2024 [facility] Facility:[facility] Start: 03-16-2024 End: 03-16-2024 Telephone encounter Vitor Calhoun MD Work Phone: [facility] [place] Comment on above: No Show (#2) Start: 03-07-2024 End: 03-12-2024 Refill Velvet Palacio MD Work Phone: Internal Medicine [place] Comment on above: Refill Request Start: 02-28-2024 End: 02-28-2024 Telephone encounter Vitor Calhoun MD Work Phone: [facility] [place] Comment on above: No Show Start: 02-25-2024 End: 02-28-2024 ambulatory Velvet Palacio MD Work Phone: Internal Medicine [facility] Start: 02-10-2024 End: 02-10-2024 ambulatory SEBAS MOLINA Facility:[facility] Start: 02-10-2024 End: 02-10-2024 Patient encounter procedure Sebas Molina MD Work Phone: Orthopaedics Comment on above: Trigger middle finge r of right hand (Primary Dx) Start: 02-04-2024 End: 02-05-2024 Refill Kimberly Nino 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 ASSOCIATE.BULK PLANT AGENT Work Phone: [facility] [place] Comment on above: Refill Request Start: 02-03-2024 End: 02-03-2024 Refill Dali Rice APRN.BULK PLANT AGENT Work Phone: Internal Medicine [place] Comment on above: Refill Request Start: 02-02-2024 End: 02-03-2024 Refill Thelma Lawson 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 ASSOCIATE.BULK PLANT AGENT Work Phone: Gastroenterology Comment on above: Refill Request Start: 01-17-2024 End: 01-20-2024 Refill Velvet Palacio MD Work Phone: Internal Medicine [place] Comment on above: Refill Request Start: 01-16-2024 End: 01-16-2024 Patient encounter procedure Nuris Barba APRN.BULK PLANT AGENT Work Phone: [facility] Comment on above: Thoracic degenerativ e disc disease; Pain syndrome, chronic; Compression deformity of vertebra Start: 01-16-2024 End: 01-16-2024 Telephone encounter Nuris Barba APRN.BULK PLANT AGENT Work Phone: [facility] Comment on above: Injections Start: 01-16-2024 End: 01-16-2024 ambulatory NURIS PREBISH Facility:[facility] Start: 01-15-2024 End: 01-16-2024 Refill Radha Willams MD Work Phone: Pulmonary Medicine Comment on above: Refill Request Start: 01-14-2024 End: 01-15-2024 Refill Velvet Palacio MD Work Phone: Internal Medicine [place] Comment on above: Refill Request Start: 01-02-2024 End: 01-03-2024 Refill Dali Rice APRN.BULK PLANT AGENT Work Phone: Internal Medicine [place] Comment on above: Refill Request Results Start: 12-27-2023 End: 12-31-2023 Telephone encounter Velvet Palacio MD Work Phone: [facility] [place] Comment on above: Results; Patient Que stion; Medication Question Start: 12-26-2023 End: 12-26-2023 [facility] Facility:[facility] Start: 12-24-2023 End: 12-25-2023 Refill Velvet Palacio MD Work Phone: [facility] [place] Comment on above: Refill Request Start: 12-12-2023 End: 12-12-2023 Telephone encounter Mari Martinez 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 ASSOCIATE.BULK PLANT AGENT Work Phone: Rheumatology Comment on above: Results; Care Coordi nator - Other; Appointment Results Start: 12-11-2023 End: 12-11-2023 [facility] Facility:[facility] Start: 12-11-2023 End: 12-11-2023 Patient encounter procedure [facility] 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 ASSOCIATE.BULK PLANT AGENT Work Phone: Internal Medicine [place] Comment on above: Essential hypertensi on (Primary Dx); Thoracic degenerative disc disease; Pain syndrome, chronic; Encounter for immunization Start: 11-16-2023 End: 11-18-2023 Telephone encounter Velvet Palacio MD Work Phone: Internal Medicine [place] Comment on above: Patient Question Start: 11-12-2023 End: 11-12-2023 Refill Kimberly Nino 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 ASSOCIATE.BULK PLANT AGENT Work Phone: Internal Medicine [place] Comment on above: Refill Request Osteoporosis, post m enopausal (Primary Dx); Fibromyalgia Start: 11-06-2023 End: 11-06-2023 [facility] Facility:[facility] Start: 11-06-2023 End: 11-06-2023 Patient encounter procedure [facility] 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 ASSOCIATE.BULK PLANT AGENT Work Phone: Internal Medicine [place] Comment on above: Essential hypertensi on (Primary Dx); Mixed hyperlipidemia; Thoracic degenerative disc disease; Pain syndrome, chronic; Compression deformity of vertebra; Abnormal x-ray Start: 10-29-2023 End: 10-31-2023 Refill Velvet Palacio MD Work Phone: Internal Medicine [place] Comment on above: Refill Request Start: 10-28-2023 End: 10-28-2023 Telephone encounter Velvet Palacio MD Work Phone: Internal Medicine [place] Comment on above: Medication Request Start: 10-26-2023 End: 10-30-2023 Telephone encounter Velvet Palacio MD Work Phone: Internal Medicine [place] Comment on above: Results Refill Request Start: 10-23-2023 End: 10-23-2023 Telephone encounter Velvet Palacio MD Work Phone: Internal Medicine [place] Comment on above: Medication Request Start: 10-22-2023 End: 10-22-2023 Telephone encounter Sebas Molina MD Work Phone: Orthopaedics Comment on above: Surgery Cancelled Start: 10-22-2023 End: 10-22-2023 ambulatory INES LOPEZ Facility:[facility] Start: 10-22-2023 End: 10-22-2023 Subsequent hospital visit by physician Eder [facility] [place] Work Phone: Radiology Comment on above: Acute midline thorac ic back pain [M54.6] Start: 10-22-2023 End: 10-22-2023 Office outpatient visit 25 minutes Ines Lopez PA-C Work Phone: Family Medicine [place] Comment on above: Acute midline thorac ic back pain (Primary Dx); Essential hypertension; Eustachian tube dysfunction, bilateral; Panic disorder without agoraphobia Start: 10-22-2023 End: 10-22-2023 ambulatory VELVET PALACIO Facility:[facility] Start: 10-18-2023 End: 10-21-2023 Refill Kimberly Nino 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 ASSOCIATE.BULK PLANT AGENT Work Phone: Internal Medicine [place] Comment on above: Refill Request Start: 10-17-2023 Refill Kimberly reyna 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 ASSOCIATE.BULK PLANT AGENT Work Phone: Internal Medicine [place] Comment on above: Refill Request Start: 10-07-2023 Telephone encounter Hannah Burr APRN.BULK PLANT AGENT Work Phone: Pre Anesthesia Comment on above: PACC appointment Start: 10-05-2023 Refill Barb Quiñones 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 ASSOCIATE.BULK PLANT AGENT Work Phone: Internal Medicine [place] Comment on above: Refill Request Start: 09-27-2023 End: 09-27-2023 Emergency department patient visit Zurdo Howard Facility:[facility] Start: 09-27-2023 End: 09-27-2023 ambulatory VELVET PALACIO Facility:[facility] Start: 09-27-2023 End: 09-27-2023 Office outpatient visit 15 minutes Kush Guthrie 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 ASSOCIATE.BULK PLANT AGENT Work Phone: [facility] Comment on above: Nasal septal abscess (Primary Dx) Start: 09-24-2023 Refill Barb Nuria 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 ASSOCIATE.BULK PLANT AGENT Work Phone: Internal [facility] Comment on above: Refill Request Start: 09-17-2023 Telephone encounter Sebas davis MD Work Phone: Orthopaedics Comment on above: Schedule Surgery; OT EVAL Start: 09-02-2023 End: 09-02-2023 Patient encounter procedure Sebas Molina MD Work Phone: Orthopaedics Comment on above: 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 Work Phone: Radiology Comment on above: Pain [R52] Start: 08-29-2023 Refill Fernando Fernandez 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 ASSOCIATE.RECOVERY COLLECTOR Work Phone: Internal [facility] Comment on above: Refill Request Start: 08-28-2023 ambulatory Velvet Rivera Work Phone: Internal Medicine [facility] [place] Start: 08-16-2023 Patient Msg Radha Willams MD Work Phone: Pulmonary Medicine Comment on above: Prednisone Refill Refill Request Start: 08-15-2023 Refill Radha Willams MD Work Phone: Pulmonary Medicine Comment on above: Refill Request Start: 08-13-2023 Telephone encounter Velvet spear MD Work Phone: Internal Medicine [place] Comment on above: Medication Problem Start: 08-04-2023 Refill Radha Willams MD Work Phone: Pulmonary Medicine Comment on above: Refill Request Start: 08-03-2023 Refill Dali Rice 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 ASSOCIATE .BULK PLANT AGENT Work Phone: Internal Medicine [place] Comment on above: Refill Request Start: 07-22-2023 Refill Radha Willams MD Work Phone: Pulmonary Medicine Comment on above: Refill Request Start: 07-20-2023 Refill Velvet Rivera Work Phone: Internal Medicine [place] Comment on above: Refill Request Start: 07-16-2023 Orders Only Fernando Fernandez 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 ASSOCIATE.RECOVERY COLLECTOR Work Phone: Internal Medicine [place] Comment on above: Stage 3 chronic kidn ey disease, unspecified whether stage 3a or 3b CKD (HCC) (Primary Dx) Start: 07-11-2023 Refill Velvet Rivera Work Phone: [address] [place] [address] Comment on above: Refill Request Start: 07-10-2023 Refill Ines sandhu PA-C Work Phone: Internal Medicine [place] Comment on above: Refill Request Start: 07-09-2023 Refill Barb Quiñones 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 ASSOCIATE.BULK PLANT AGENT Work Phone: Internal Medicine [place] Comment on above: Refill Request Start: 07-08-2023 ambulatory Ivett Hdez RN [facility] [place] Start: 07-08-2023 Patient encounter procedure Ivett Hdez RN [facility] Comment on above: ACM ELIUD RN ( [...] cigarette smoker Start: 06-11-2023 Telephone encounter Fernando Brogretta herrera 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 ASSOCIATE.RECOVERY COLLECTOR Work Phone: Internal Medicine [place] Comment on above: Patient Question Start: 06-10-2023 End: 06-10-2023 Office outpatient visit 25 minutes Fernando Fernandez MANASA.RECOVERY COLLECTOR Work Phone: Internal Medicine [place] Comment on above: Community acquired p neumonia, unspecified laterality (Primary Dx); Acute on chronic respiratory failure with hypoxia (HCC); Stage 3 chronic kidney disease, unspecified whether stage 3a or 3b CKD (HCC); Centrilobular emphysema (HCC); Acute on chronic diastolic congestive heart failure (HCC); Essential hypertension Start: 06-06-2023 Non-patient / Non-visit VINYL DIPPER-C J OY OLDER Work Phone: [facility] Inpatient Physicians Work Phone: Start: 06-05-2023 Non-patient / Non-visit VINYL DIPPER-C J OY OLDER Work Phone: [facility] Start: 06-05-2023 Non-patient / Non-visit VINYL DIPPER-C J OY OLDER Work Phone: [facility] In[facility] Phys[facility] Work Phone: Start: 06-04-2023 Non-patient / Non-visit VINYL DIPPER-C J OY OLDER Work Phone: [facility] Inpatient Phys[facility] Work Phone: Start: 06-04-2023 End: 06-06-2023 Evaluation and management of inpatient VINYL DIPPER-C DALI OLDER Work Phone: [facility]-Progressive Care Unit Work Phone: Start: 05-23-2023 Refill Shelby Styles PA-C Work Phone: Internal Medicine [place] Comment on above: Refill Request Start: 05-20-2023 ambulatory NONE PHYSICIAN Facility :R Start: 05-20-2023 Non-patient / Non-visit VINYL DIPPER-C J OY OLDER Work Phone: [facility] Start: 05-20-2023 Non-patient / Non-visit VINYL DIPPER-C J OY OLDER Work Phone: [facility] Inpatient Physicians Work Phone: Start: 05-19-2023 Non-patient / Non-visit VINYL DIPPER-C J OY OLDER Work Phone: [facility] Inpatient Physicians Work Phone: Start: 05-18-2023 Non-patient / Non-visit VINYL DIPPER-C J OY OLDER Work Phone: [facility] Inpatient Physicians Work Phone: Start: 05-17-2023 Refill Velvet Rivera Work Phone: Internal Medicine [place] Comment on above: Refill Request Start: 05-17-2023 Non-patient / Non-visit VINYL DIPPER-C J OY OLDER Work Phone: [facility] Inpatient Physicians Work Phone: Start: 05-16-2023 Non-patient / Non-visit VINYL DIPPER-C J OY OLDER Work Phone: [facility] Inpatient Phys[facility] Work Phone: Start: 05-15-2023 Non-patient / Non-visit VINYL DIPPER-C J OY OLDER Work Phone: [facility] In[facility] Work Phone: Start: 05-14-2023 Non-patient / Non-visit VINYL DIPPER-C J OY OLDER Work Phone: [facility] In[facility] Phys[facility] Work Phone: Start: 05-13-2023 Non-patient / Non-visit VINYL DIPPER-C J OY OLDER Work Phone: [facility] In[facility] Phys[facility] Work Phone: Start: 05-12-2023 Non-patient / Non-visit VINYL DIPPER-C J OY OLDER Work Phone: [facility] Inpatient Physicians Work Phone: Start: 05-11-2023 Non-patient / Non-visit VINYL DIPPER-Ange RICE Work Phone: [facility] Inpatient Physicians Work Phone: Start: 05-11-2023 End: 05-20-2023 Evaluation and management of inpatient [facility] Work Phone: Start: 05-10-2023 ambulatory Nasrin Jenkins MA [facility] Start: 05-10-2023 Patient encounter procedure Nasrin Jenkins MA [facility] [place] Comment on above: Population Health Na vigation Outreach ([facility] Annual Wellness Visit ) Start: 05-10-2023 Telephone encounter Velvet spear MD Work Phone: Internal Medicine [place] Comment on above: Patient does not wan t Rx's sent to [facility] Appointment (Appoint ment Cancelled due to Scheduling Error ) Start: 05-02-2023 Refill Shelby Styles PA-C Work Phone: Internal Medicine [place] Comment on above: Refill Request Start: 05-02-2023 Telephone encounter Mari reinoso APRN.BULK PLANT AGENT Work Phone: Rheumatology Comment on above: Appointment Start: 05-02-2023 End: 05-02-2023 Patient encounter procedure Dali Rice APRN.CNP Work Phone: Internal Medicine [place] Comment on above: Moderate episode of recurrent major depressive disorder (HCC) (Primary Dx); Anxiety; Essential hypertension Start: 04-29-2023 End: 04-29-2023 Subsequent hospital visit by physician Eder [facility] Work Phone: Radiology Comment on above: Pain in joint, multi ple sites [M25.50] Start: 04-15-2023 ambulatory Genia hess RN Work Phone: [employer] Comment on above: community monitoring outreach ([facility] telephonic) Start: 04-15-2023 Telephone encounter Velvet spear MD Work Phone: Internal Medicine [place] Comment on above: Insurance Authorizat ion Refill Request Start: 04-13-2023 Refill Dali 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 .BULK PLANT AGENT Work Phone: Internal Medicine [place] Comment on above: Refill Request Start: 02-06-2023 Refill Velvet Rivera Work Phone: Internal Medicine [place] Comment on above: Refill Request Start: 01-22-2023 ambulatory Genia hess RN Work Phone: [employer] Comment on above: community monitoring outreach ([facility] telephonic) Start: 01-22-2023 Telephone encounter 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BULK PLANT AGENT Work Phone: Family Medicine [place] Comment on above: Orders Start: 01-20-2023 Refill Barb Nuria 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 ASSOCIATE.BULK PLANT AGENT Work Phone: Internal Medicine [place] Comment on above: Refill Request; Refi ll Request Start: 12-27-2022 Refill Dali 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 .BULK PLANT AGENT Work Phone: Internal Medicine [place] Comment on above: Refill Request Start: 12-26-2022 Refill Dali 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 .BULK PLANT AGENT Work Phone: Internal Medicine [place] Comment on above: Refill Request; Refi ll Request Start: 12-11-2022 ambulatory Genia hess RN Work Phone: [employer] Comment on above: community monitoring outreach ([facility] telephonic) Start: 12-10-2022 ambulatory Genia hess RN Work Phone: [employer] Comment on above: community monitoring outreach ([facility] telephonic) Start: 12-03-2022 Refill Dali 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 .BULK PLANT AGENT Work Phone: Internal Medicine [place] Comment on above: Refill Request Start: 11-19-2022 Refill Thelma Lawson APR N.BULK PLANT AGENT Work Phone: Gastroenterology Comment on above: Refill [...] 11-14-2022 End: 11-14-2022 Emergency department patient visit [facility] Work Phone: Start: 11-12-2022 ambulatory Genia hess RN Work Phone: [employer] Comment on above: community monitoring outreach ([facility] telephonic) Start: 11-11-2022 Refill Dali 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 .[employer] Work Phone: Internal Medicine [place] Comment on above: Refill Request Medical Start: 11-03-2022 Refill Thelma Lawson APR N.BULK PLANT AGENT Work Phone: Gastroenterology Comment on above: Refill Request Start: 11-01-2022 Refill Dali 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 .B[employer]K [employer]ANT AGENT Work Phone: Internal Medicine [place] Comment on above: Refill Request Start: 11-01-2022 Telephone encounter Dali Rice 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 ASSOCIATE.[employer] AGENT Work Phone: Internal Medicine [place] Comment on above: Medication Request Start: 10-30-2022 Telephone encounter Velvet spear MD Work Phone: Family Medicine [place] Comment on above: Results Start: 10-24-2022 Refill Thelma Lawson APR N.BULK PLANT AGENT Work Phone: Gastroenterology Comment on above: Refill Request Start: 10-23-2022 End: 10-23-2022 Subsequent hospital visit by physician Bone Density [facility] Work Phone: Radiology Comment on above: Encounter for screen ing for osteoporosis [Z13.820] Start: 10-15-2022 ambulatory Genia hess RN Work Phone: [employer] Comment on above: community monitoring outreach (CDM telephonic) Start: 10-09-2022 Telephone encounter Velvet spear MD Work Phone: Family [facility] Comment on above: Patient Update Start: 10-09-2022 End: 10-10-2022 Emergency department patient visit [facility] Work Phone: Start: 10-08-2022 Chart abstracting Ness velazquez [facility] Work Phone: Psychology Start: 10-04-2022 Telephone encounter Dali Rice 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 ASSOCIATE.[facility] Work Phone: [facility] Comment on above: Results (Requesting xray results) Start: 10-03-2022 Refill Dali 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 .[employer]K PLANT AGENT Work Phone: Internal Medicine [place] Comment on above: Refill Request Start: 10-02-2022 Refill Dali 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 .[employer] AGENT Work Phone: Internal Medicine [place] Comment on above: Refill Request Start: 10-01-2022 Telephone encounter Ness gunn [facility] Work Phone: Psychology Comment on above: bh consult Start: 10-01-2022 End: 10-01-2022 Subsequent hospital visit by physician Xr [facility] [place] Work Phone: Radiology Comment on above: Chronic back pain, u nspecified back location, unspecified back pain laterality [M54.9, G89.29] Start: 10-01-2022 End: 10-01-2022 Patient encounter procedure Dali Rice 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 ASSOCIATE.[facility] Work Phone: Internal Medicine [place] Comment on above: Essential hypertensi on (Primary Dx); Hyperlipidemia, unspecified hyperlipidemia type; Fibromyalgia; Medication management; Epigastric pain; Diarrhea, unspecified type; Encounter for screening for osteoporosis; Asymptomatic postmenopausal status; Chronic back pain, unspecified back location, unspecified back pain laterality; Kyphosis, unspecified kyphosis type, unspecified spinal region; Panic disorder without agoraphobia; Moderate episode of recurrent major depressive disorder (HCC); Dizziness; Light sensitivity Start: 09-28-2022 ambulatory Crystal Jared hess RN Work Phone: [employer] Comment on above: community monitoring outreach (CDM telephonic) Start: 09-28-2022 Refill Barb Nuria 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 ASSOCIATE.[employer] AGENT Work Phone: Internal Medicine [place] Comment on above: Refill Request Start: 09-27-2022 Chart abstracting Ness velazquez [facility] Work Phone: Psychology Start: 09-20-2022 Chart abstracting Ness Pavon annitricia [facility] Work Phone: Psychology Comment on above: Refill Request Start: 09-18-2022 ambulatory Velvet Rivera Work Phone: Internal [facility] [place] Start: 08-30-2022 ambulatory Genia hess RN Work Phone: [employer] Comment on above: community monitoring outreach (CDM telephonic) Start: 08-29-2022 Refill Velvet Rivera Work Phone: Internal Medicine [place] Comment on above: Refill Request Start: 07-31-2022 [facility] [place] Comment on above: Population Health Na vigation Outreach ([facility] care gap ) Start: 06-28-2022 Telephone encounter Velvet spear MD Work Phone: Internal Medicine [place] Comment on above: Medication clarifica tion Refill Request Start: 06-27-2022 ambulatory Hilda Chu RN Work Phone: [employer] Comment on above: Community Monitoring Outreach (CDM Telephonic Outreach - Routine ) Start: 06-26-2022 ambulatory Hilda Chu RN Work Phone: [employer] Comment on above: Community Monitoring Outreach (CDM Telephonic Outreach - Routine ) Start: 06-26-2022 Refill Dali Rice APRN, .CNP Work Phone: Internal Medicine [place] Comment on above: Refill Request Start: 06-19-2022 ambulatory Velvet Rivera Work Phone: [facility] [place] Start: 06-13-2022 ambulatory Hilda Chu RN Work Phone: [employer] Comment on above: Community Monitoring Outreach (CDM telephonic outreach ) Start: 06-12-2022 ambulatory Hilda Chu RN Work Phone: [employer] Comment on above: Community Monitoring Outreach (CDM telephonic outreach ) Start: 06-01-2022 Refill Dali Rice APRN .[employer]K PL[employer] AGENT Work Phone: Internal Medicine [place] Comment on above: Refill Request Start: 05-30-2022 ambulatory Hilda Chu RN Work Phone: [employer] Comment on above: Community Monitoring Outreach (CDM telephonic outreach ) Start: 05-29-2022 ambulatory Hilda Chu RN Work Phone: [employer] Comment on above: Community Monitoring Outreach (CDM telephonic outreach ) Start: 05-27-2022 ambulatory Danni stahl [employer] COUNSEL[employer]SE [employer] Comment on above: Medication Question Start: 05-25-2022 Refill Velvet Rivera Work Phone: Internal Medicine [place] Comment on above: Refill Request Start: 05-10-2022 Refill Velvet Rivera Work Phone: Family Medicine [place] Comment on above: Refill Request Start: 05-02-2022 ambulatory Hilda Chu RN Work Phone: [employer] Comment on above: Community Monitoring Outreach (CDM telephonic outreach ) Start: 04-27-2022 Refill Thelma Lawson APR N.B[employer]K PLANT AGENT Work Phone: Gastroenterology Comment on above: Refill Request Start: 04-24-2022 Refill Velvet Rivera Work Phone: [facility] [place] Comment on above: Refill Request Start: 04-19-2022 ambulatory Hilda Chu RN Work Phone: [employer] Comment on above: Community Monitoring Outreach (CDM telephonic outreach ) Start: 04-06-2022 ambulatory Hilda Chu RN Work Phone: [employer] Comment on above: Community Monitoring Outreach (CDM telephonic outreach ) Start: 04-05-2022 ambulatory Hilda Chu RN Work Phone: [employer] Comment on above: Community Monitoring Outreach (CDM telephonic outreach ) Start: 04-02-2022 Telephone encounter Velvet spear MD Work Phone: Internal Medicine [place] Comment on above: Results Start: 03-28-2022 Refill Velvet Rivera Work Phone: Internal Medicine [place] Comment on above: Refill Request (SEE RX NOTES) Start: 03-19-2022 Telephone encounter Velvet spear MD Work Phone: Internal Medicine [place] Comment on above: results Start: 03-16-2022 End: 03-16-2022 Subsequent hospital visit by physician [facility] (I-Stat) Work Phone: [facility] [place] Comment on above: Elevated lipase [R74 .8] Start: 03-13-2022 ambulatory [facility] Provider [employer] Comment on above: Please complete your Home Monitoring Questionnaire Start: 03-13-2022 E-mail encounter fro m caregiver [facility] Provider INDP [employer] Start: 03-12-2022 Refill Fernando Fernandez 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 ASSOCIATE.RECOVERY COLLECTOR Work Phone: Internal Medicine [place] Comment on above: Refill Request Start: 03-06-2022 Refill Velvet Rivera Work Phone: Internal Medicine [place] Comment on above: Refill Request Start: 02-21-2022 Refill Dali Rice APRN .B[employer]K PLANT AGENT Work Phone: Family Medicine [place] Comment on above: Refill Request Start: 02-17-2022 Refill Velvet Rivera Work Phone: Internal Medicine [place] Comment on above: Refill Request Start: 02-13-2022 ambulatory [facility] Provider [employer] Comment on above: Please complete your Home Monitoring Questionairre Start: 02-13-2022 E-mail encounter fro m caregiver [facility] Provider INDP [employer] Start: 02-02-2022 Telephone encounter Velvet spear MD Work Phone: Internal Medicine [place] Comment on above: Orders Start: 02-01-2022 Telephone encounter Dali Rice APRN.B[employer]K PLANT AGENT Work Phone: Internal Medicine [place] Comment on above: Results Start: 01-31-2022 ambulatory [facility] Provider [employer] Comment on above: Please complete your Home Monitoring Questionnaire Start: 01-31-2022 E-mail encounter lennox ricketts caregiver [facility] Provider ALEIDA NATHANIEL MEJIA Start: 01-31-2022 End: 01-31-2022 Patient encounter procedure Dali Rice APRN.CNP Work Phone: Internal Medicine [place] Comment on above: Diarrhea, unspecifie d type (Primary Dx); Right upper quadrant abdominal tenderness without rebound tenderness; Heartburn; Nausea Start: 01-23-2022 Telephone encounter Velvet spear MD Work Phone: Internal Medicine [place] Comment on above: Patient Request; Ord ers Start: 01-03-2022 End: 01-03-2022 Patient encounter procedure Dali Rice APRN.CNP Work Phone: Internal Medicine [place] Comment on above: Essential hypertensi on (Primary Dx); Migraine without aura and without status migrainosus, not intractable; Chronic pain of multiple joints; Arthritis; Fibromyalgia; Colon cancer screening Start: 12-26-2021 Refill Barby Diallo APRN.CNP Work Phone: Internal Medicine [place] Comment on above: Refill Request Start: 12-20-2021 Refill Barby Diallo APRN.CNP Work Phone: Internal Medicine [place] Comment on above: Refill Request Start: 12-19-2021 ambulatory Eulalia Jeong RN Work Phone: [employer] Comment on above: Community Monitoring Outreach ([employer] CDM escalation) Start: 12-15-2021 Refill Dali Rice APRN, .CNP Work Phone: Internal Medicine [place] Comment on above: Refill Request Start: 12-06-2021 Refill Thelma Lawson APR N.B[employer]K PLANT AGENT Work Phone: Gastroenterology Comment on above: Refill Request Start: 12-05-2021 Refill Velvet Rivera Work Phone: Internal Medicine [place] Comment on above: Refill Request Start: 12-04-2021 ambulatory Kelsea justin APRN.B[employer]K PLANT AGENT Work Phone: Telemedicine Comment on above: Treatment not availa ble (Primary Dx) Start: 11-09-2021 ambulatory Terri Johnston RN Work Phone: [employer] Comment on above: Opened In Error (.) Community Monitoring Outreach ([employer] CDM Escalation) Refill Request Start: 10-30-2021 Refill Thelma Lawson APR N.B[employer]K PL[employer] AGENT Work Phone: Gastroenterology Comment on above: Refill Request Start: 10-18-2021 ambulatory Velvet Rivera Work Phone: Internal Medicine [facility] [place] Start: 10-17-2021 Refill Dali 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 .[employer] AGENT Work Phone: Internal Medicine [place] Comment on above: Refill Request Start: 10-13-2021 Nurse Triage Liliana Short RN NURSE O N CALL Comment on above: Refill Request Start: 10-12-2021 Refill Dali 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 .[employer] AGENT Work Phone: Internal Medicine [place] Comment on above: Refill Request Start: 10-05-2021 ambulatory Juan Hillman RN [employer] Comment on above: Community Monitoring Outreach (CHF/ COPD/ CKD CDM Outreach) Start: 10-05-2021 Telephone encounter Velvet spear MD Work Phone: Internal Medicine [place] Comment on above: Medication Request; Patient Update Start: 09-11-2021 Refill Scot Kruse 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 ASSOCIATE.[employer] AGENT Work Phone: Internal Medicine [place] Comment on above: Refill Request Start: 09-07-2021 Refill Velvet Rivera Work Phone: Family Medicine [place] Comment on above: Refill Request Start: 08-30-2021 ambulatory Juan Hillman RN [facility] Comment on above: Community Monitoring Outreach (CHF/ COPD/ CKD CDM Outreach) Start: 08-22-2021 Telephone encounter Velvet spear MD Work Phone: Internal Medicine [place] Comment on above: Patient Update; Haylie ent Request Start: 08-11-2021 ambulatory Nasrin Jenkins MA [facility] [place] Comment on above: Population Health Na vigation Outreach ([employer] Care Gaps ) Start: 08-11-2021 Refill Thelma Lawson APR N.B[employer]K PLANT AGENT Work Phone: Gastroenterology Comment on above: Refill Request Start: 07-28-2021 Telephone encounter Velvet spear MD Work Phone: Internal Medicine [place] Comment on above: Patient Request Start: 07-26-2021 ambulatory Dali 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 .[employer] AGENT Work Phone: Internal Medicine [place] Comment on above: Question regarding S ED RATE Start: 07-26-2021 Refill Dali 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 .[employer] AGENT Work Phone: Internal Medicine [place] Comment on above: Refill Request Start: 07-26-2021 End: 07-26-2021 Patient encounter procedure 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[employer] AGENT Work Phone: Internal Medicine [place] Comment on above: Essential hypertensi on (Primary Dx); Fibromyalgia; Chronic pain of multiple joints; Poor short term memory Start: 07-13-2021 Refill Dali 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 .B[employer] AGENT Work Phone: Internal Medicine [place] Comment on above: Refill Request Start: 07-10-2021 Refill Dali 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 .[employer] AGENT Work Phone: Internal Medicine [place] Comment on above: Refill Request Start: 07-06-2021 Refill Tanya Seal PSS [facility] y Medicine [place] Comment on above: Refill Request Start: 07-05-2021 Refill Dali 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 .[employer] PL[employer] AGENT Work Phone: Internal Medicine [place] Comment on above: Refill Request Start: 07-05-2021 Refill Velvet Rivera Work Phone: Internal Medicine [place] Comment on above: Refill Request; Refi ll Request Start: 07-04-2021 Refill Dali 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 .[employer] AGENT Work Phone: Internal Medicine [place] Comment on above: Refill Request Start: 06-26-2021 End: 06-26-2021 Patient encounter procedure 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[employer] AGENT Work Phone: Internal Medicine [place] Comment on above: Essential hypertensi on (Primary Dx); Poor short term memory; Chronic pain of multiple joints Start: 06-22-2021 Refill Velvet Rivera Work Phone: Internal Medicine [place] Comment on above: Refill Request Start: 06-20-2021 Refill Thelma Lawson APR N.BULK PLANT AGENT Work Phone: Gastroenterology Comment on above: Refill Request Start: 05-31-2021 Refill Dali Krystal 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 ASSOCIATE .B[employer] AGENT Work Phone: Internal Medicine [place] Comment on above: Refill Request Start: 05-28-2021 Refill Dali Rice 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 ASSOCIATE .B[employer] PL[employer] AGENT Work Phone: Internal Medicine [place] Comment on above: Refill Request Start: 03-23-2021 End: 03-23-2021 Subsequent hospital visit by physician Xr [facility] [place] Work Phone: Radiology Comment on above: Shortness of breath [R06.02] Start: 01-11-2021 Telephone encounter Thelma Lawson 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 ASSOCIATE.[employer] AGENT Work Phone: Gastroenterology Comment on above: Results Start: 12-02-2017 Ambulatory [facility] Facility [facility] Start: 09-27-2017 Patient encounter status Dali Krystal JOHNSONN.BULK PLANT AGENT Work Phone: [facility] Start: 08-22-2017 Ambulatory [facility] Start: 04-10-2017 Ambulatory [facility] Start: 04-02-2017 End: 04-02-2017 [facility] Start: 11-20-2016 End: 11-21-2016 Ambulatory Nakita Miller Facility:[facility] Start: 11-04-2016 End: 11-04-2016 Emergency department patient visit [facility] Start: 09-11-2016 Ambulatory [facility] Start: 09-11-2016 Ambulatory [facility] ZO[facility] Procedures Date Procedure Procedure Detail Performing Clinician Start: 08-14-2024 Estimated creatinine clearance DALI RICE [employer] Work Phone: Start: 08-06-2024 Methadone measuremen t, urine DALI OLDER [employer] Work Phone: Start: 08-06-2024 Plain X-ray abdomen DALI OLDER [employer] Work Phone: Start: 08-06-2024 Estimated creatinine clearance DALI OLDER [employer] Work Phone: Start: 08-04-2024 Estimated creatinine clearance DALI OLDER [employer] Work Phone: Start: 08-01-2024 Carbon dioxide measu rement, partial pressure DALI OLDER [employer] Work Phone: Start: 08-01-2024 Gases blood o2 satur ation only direct melo DALI OLDER [employer] Work Phone: Start: 08-01-2024 Measurement of parti al pressure of oxygen in blood DALI OLDER [employer] Work Phone: Start: 08-01-2024 Oxygen measurement DALI OLDER [employer] Work Phone: Start: 08-01-2024 Computerized axial tomography of lumbar spine with contrast DALI OLDER [employer] Work Phone: Start: 08-01-2024 CT of thoracic spine with contrast DALI OLDER [employer] Work Phone: Start: 08-01-2024 CT of thorax with contrast DALI OLDER [employer] Work Phone: Start: 08-01-2024 Blood culture DALI OLDER [employer] Work Phone: Start: 08-01-2024 Lymphocyte percent differential count DALI OLDER [employer] Work Phone: Start: 07-31-2024 Blood culture DALI OLDER [employer] Work Phone: Start: 07-30-2024 Legionella pneumophi la antigen assay DALI OLDER [employer] Work Phone: Start: 07-30-2024 Nucleic acid assay DALI OLDER [employer] Work Phone: Start: 07-30-2024 End: 07-30-2024 Streptococcus pneumoniae antigen assay DALI OLDER [employer] Work Phone: Start: 07-29-2024 X-ray of chest, PA a nd lateral views DALI RICE [employer] Work Phone: Start: 07-29-2024 Urnls dip stick/tabl et reagent auto microscopy DALI OLDER [employer] Work Phone: Start: 07-29-2024 Blood culture DALI RICE [employer] Work Phone: Start: 07-29-2024 Identification proce dure for living organism DALI RICE [employer] Work Phone: Start: 07-28-2024 Small bowel series DALI RICE [employer] Work Phone: Start: 07-26-2024 Plain X-ray abdomen DALI RICE [employer] Work Phone: Start: 07-26-2024 Urnls dip stick/tabl et reagent auto microscopy DALI OLDER [employer] Work Phone: Start: 07-26-2024 Computed tomography of abdomen and pelvis with intravenous contrast DALI RICE [employer] Work Phone: Start: 07-26-2024 Estimated creatinine clearance DALI RICE [employer] Work Phone: Start: 07-09-2024 Ct head/brain w/o co ntrast material Dali Rice 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 ASSOCIATE.[employer] Work Phone: Start: 06-29-2024 Lipid 1996 panel - S wang or Plasma Dali Rice 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 ASSOCIATE.[employer] AGENT Work Phone: Start: 05-02-2024 Gram stain microscopy J OMai OLDER [employer] Work Phone: Start: 05-02-2024 Respiratory microbia l culture DALI RICE [employer] Work Phone: Start: 05-02-2024 Estimated creatinine clearance DALI OLDER [employer] Work Phone: Start: 05-01-2024 Legionella pneumophi la antigen assay DALI OLDER [employer] Work Phone: Start: 05-01-2024 SARS-CoV-2, Influenz a & RSV (PCR) [facility] [employer] Work Phone: Start: 05-01-2024 End: 05-01-2024 Streptococcus pneumoniae antigen assay [facility] Work Phone: Start: 05-01-2024 X-ray of chest, PA a nd lateral views [facility] [employer] [facility] Work Phone: Start: 03-30-2024 X-ray of lumbar spin e, two or three views [facility] [employer] Work Phone: Start: 03-30-2024 Xray thoracic spine [facility] Work Phone: Start: 02-10-2024 Injection 1 tendon sheath/ligament aponeurosis Sebas Molina MD Work Phone: Start: 10-22-2023 Radex spine thoracic 3 views Ines Lopez PA-C Work Phone: Start: 06-04-2023 Legionella pneumophi la antigen assay [facility] Work Phone: Start: 06-04-2023 SARS-CoV-2, Influenz a & RSV (PCR) [facility] Work Phone: Start: 06-04-2023 Streptococcus pneumo niae Antigen (M [facility] Work Phone: Start: 06-04-2023 Plain chest X-ray [facility] DALI [facility] Work Phone: Start: 05-20-2023 Plain chest X-ray [facility] Work Phone: Start: 05-17-2023 CT of thorax with contrast [facility] Work Phone: Start: 05-17-2023 Plain chest X-ray [facility] Work Phone: Start: 05-16-2023 Investigation of transfusion reaction [facility] Work Phone: Start: 05-16-2023 Lactoferrin measurement [facility] DALI RICE Work Phone: Start: 05-16-2023 Measurement of occul t blood in stool specimen using immunoassay [facility]- [facility] Work Phone: Start: 05-16-2023 Respiratory microbia l culture [facility]- D[facility]I [facility] Work Phone: Start: 05-14-2023 Plain chest X-ray [facility]- [facility] R[facility] Work Phone: Start: 05-11-2023 Bacteria identified in Blood by Culture [facility] DALI [facility] Work Phone: Start: 05-11-2023 SARS-CoV-2, Influenz a & RSV (PCR) Start: 05-11-2023 CT of thorax with contrast Start: 05-11-2023 Computed tomography of abdomen and pelvis with intravenous contrast Start: 04-29-2023 Radex hand minimum 3 views Mari Martinez 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 ASSOCIATE.[facility] Work Phone: Start: 02-11-2023 Lipid 1996 panel - S wang or Plasma Dali Rice 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 ASSOCIATE.[facility] Work Phone: Start: 11-14-2022 Computed tomography of abdomen and pelvis with intravenous contrast Start: 10-23-2022 Dxa bone density brendan dy 1/> sites axial skel Dali Rice 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 ASSOCIATE.[employer] Work Phone: Start: 10-09-2022 Coronavirus COVID-19 PCR Start: 10-01-2022 Radex spine lumbosac ral 2/3 views Dali Rice 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 ASSOCIATE.[employer] Work Phone: Start: 03-16-2022 Ct abdomen w/o contr ast material Dali Rice 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 ASSOCIATE.[employer] Work Phone: Start: 07-26-2021 Lipid 1996 panel - S wang or Plasma Dali Rice 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 ASSOCIATE.[employer] Work Phone: Start: 03-23-2021 Radiologic exam ches t 2 views Dali Rice 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 ASSOCIATE.[employer] Work Phone: Start: 08-06-2016 Mammography Dali Rice 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 ASSOCIATE.[employer] Work Phone: Start: 01-09-2012 Colonoscopy Dali Rice 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 ASSOCIATE.[employer] Work Phone: Plan of Treatment Date Care Activity Detail Author Start: 06-29-2029 Lipid panel Lipid Screening [facility] Start: 07-22-2028 Urine microalbumin profile [facility] Start: 02-12-2028 Lipid panel Lipid Screening [facility] Start: 06-30-2027 Diabetes Screening Diabetes Screening [facility] Start: 12-25-2026 Diabetes Screening Diabetes Screening [facility] Start: 12-10-2026 Diabetes Screening Diabetes Screening [facility] Start: 07-26-2026 Lipid 1996 panel - Serum or Plasma Lipid Screening [facility] Start: 07-26-2026 LIPID SCREEN LIPID SCREEN [facility] Start: 06-09-2026 Diabetes Screening Diabetes Screening [facility] Start: 02-11-2026 Diabetes Screening Diabetes Screening [facility] Start: 08-10-2025 Annual PCP Team Chronic Disease Visit Annual PCP Team Chronic Disease Visit [facility] Start: 08-10-2025 RSV Vaccine (1 - Risk 60-74 years 1-dose series) RSV Vaccine (1 - Risk 60-74 years 1-dose series) [facility] Comment on above: Postponed from 2020 (Declined at t his time) Start: 06-29-2025 Annual PCP Team Chronic Disease Visit Annual PCP Team Chronic Disease Visit [facility] Start: 06-29-2025 BP Controlled (<130/80) BP Controlled (<130/80) [facility] Start: 06-29-2025 Creatinine measurement Serum Creatinine [facility] Start: 06-19-2025 Annual PCP Team Chronic Disease Visit Annual PCP Team Chronic Disease Visit [facility] Start: 06-19-2025 BP Controlled (<130/80) BP Controlled (<130/80) [facility] Start: 05-08-2025 Annual PCP Team Chronic Disease Visit Annual PCP Team Chronic Disease Visit [facility] Start: 04-02-2025 Annual PCP Team Chronic Disease Visit Annual PCP Team Chronic Disease Visit [facility] Start: 01-31-2025 DIABETES SCREEN DIABETES SCREEN [facility] Start: 01-31-2025 Diabetes Screening Diabetes Screening [facility] Start: 01-20-2025 End: 01-20-2025 Patient encounter procedure 01/20/2025 3:00 PM EST Office Visit Cardiology [address] [address] Katie Taylor MD [address] [place] [address] zz Cardiology Comment on above: zz Start: 12-25-2024 Creatinine measurement Serum Creatinine [facility] Start: 12-10-2024 Annual PCP Team Chronic Disease Visit Annual PCP Team Chronic Disease Visit [facility] Start: 12-10-2024 Complete blood count Hemoglobin/Hematocrit [facility] Start: 12-10-2024 Creatinine measurement Serum Creatinine [facility] Start: 12-06-2024 LIPID SCREEN LIPID SCREEN [facility] Start: 11-05-2024 Annual PCP Team Chronic Disease Visit Annual PCP Team Chronic Disease Visit [facility] Start: 10-22-2024 End: 10-22-2024 Patient encounter procedure 10/22/2024 1:10 PM EDT Office Visit Rheumatology [id number] [place], [place] [id number] [place] [address] [place] [phone] est care and 6 month follow up osteoporosis/joint pain Rheumatology Comment on above: est care and 6 month follow up osteoporo sis/joint pain Start: 10-21-2024 Annual PCP Team Chronic Disease Visit Annual PCP Team Chronic Disease Visit [facility] Start: 09-15-2024 End: 09-15-2024 Patient encounter procedure 09/15/2024 1:00 PM EDT Office Visit [facility] [address] [place] [address] Velvet Palacio MD [address] [place] [address] 5 WEEK F/U [facility] Comment on above: 5 WEEK F/U Start: 08-26-2024 End: 08-26-2024 Patient encounter procedure 08/26/2024 9:00 AM EDT Office Visit Neurology [address] [address] Georgia Freeman MD [address] [place] [address] Memory change [R41.3] Neurology Comment on above: Memory change [R41.3] Start: 08-10-2024 End: 11-09-2024 Basic metabolic 2000 panel - Serum or Plasma BASIC METABOLIC PANEL Lab Routine Essential hypertension Expected: 08/10/2024, Expires: 11/09/2024 [facility] Comment on above: Expected: 08/10/2024, Expires: Start: 08-10-2024 End: 08-10-2024 Patient encounter procedure [facility] Comment on above: 6 week follow up Discharged 08/05/24 WC H - SOB Start: 08-05-2024 Patient discharge [facility] Start: 08-04-2024 Referral to service [facility] Start: 08-01-2024 Blood culture Blood Culture [facility] Start: 08-01-2024 [facility] Start: 08-01-2024 [facility] Start: 08-01-2024 [facility] Start: 07-31-2024 Following clinical pathway protocol [facility] Start: 07-31-2024 Referral to linotype machinist [facility] Start: 07-30-2024 Consultation [facility] Start: 07-29-2024 Referral to service [facility] Start: 07-28-2024 [facility] Start: 07-28-2024 [facility] Start: 07-28-2024 Inhalation therapy procedure [facility] Start: 07-27-2024 Oxygen therapy [facility] Start: 07-26-2024 Following clinical pathway protocol [facility] Start: 07-26-2024 Assessment of risk of venous thromboembolism [facility] Start: 07-26-2024 Insertion of catheter into peripheral vein [facility] Start: 07-26-2024 Providing care according to standard [facility] Start: 07-26-2024 Provision of activity privileges [facility] Start: 07-26-2024 Referral to general surgeon [facility] Start: 07-26-2024 [facility] Start: 07-26-2024 Hospital admission, emergency, from emergency room, medical nature [facility] Start: 07-26-2024 Verification routine [facility] Start: 07-26-2024 Admission procedure [facility] Start: 07-26-2024 DIABETES SCREEN DIABETES SCREEN [facility] Start: 07-09-2024 End: 07-09-2024 Patient encounter procedure 07/09/2024 2:00 PM EDT Appointment Cat Scan [address] [place] [address] Memory change [R41.3] Cat [facility] Comment on above: Memory change [R41.3] Start: 07-01-2024 End: 09-30-2024 Ferritin [Mass/volume] in Serum or Plasma FERRITIN Lab Routine Anemia, unspecified type Expected: 07/01/2024, Expires: 09/30/2024 [facility] Comment on above: Expected: 07/01/2024, Expires: Start: 07-01-2024 End: 09-30-2024 Folate [Mass/volume] in Serum or Plasma FOLATE, SERUM Lab Routine Anemia, unspecified type Expected: 07/01/2024, Expires: 09/30/2024 [facility] Comment on above: Expected: 07/01/2024, Expires: Start: 07-01-2024 End: 09-30-2024 Iron and Iron binding capacity panel - Serum or Plasma IRON AND TIBC Lab Routine Anemia, unspecified type Expected: 07/01/2024, Expires: 09/30/2024 [facility] Comment on above: Expected: 07/01/2024, Expires: Start: 07-01-2024 End: 09-30-2024 RETICULOCYTE COUNT RETICULOCYTE COUNT Lab Routine Anemia, unspecified type Expected: 07/01/2024, Expires: 09/30/2024 [facility] Comment on above: Expected: 07/01/2024, Expires: Start: 06-29-2024 End: 06-29-2024 Patient encounter procedure [facility] Comment on above: 3 month follow up 3 month follow up - referral to neurophychologist per 180 Start: 06-19-2024 End: 09-18-2024 CBC W Auto Differential panel - Blood COMPLETE BLOOD COUNT AND DIFFERENTIAL Lab Routine Shortness of breath Memory change Expected: 06/19/2024, Expires: 09/18/2024 [facility] Work Phone: Comment on above: Expected: 06/19/2024, Expires: Start: 06-19-2024 End: 09-18-2024 Cobalamin (Vitamin B12) [Mass/volume] in Serum or Plasma VITAMIN B12 Lab Routine Memory change Expected: 06/19/2024, Expires: 09/18/2024 [facility] Comment on above: Expected: 06/19/2024, Expires: Start: 06-19-2024 End: 09-18-2024 Comprehensive metabolic 2000 panel - Serum or Plasma COMPREHENSIVE METABOLIC PANEL Lab Routine Shortness of breath Memory change Expected: 06/19/2024, Expires: 09/18/2024 [facility] Comment on above: Expected: 06/19/2024, Expires: Start: 06-19-2024 End: 09-18-2024 Magnesium [Mass/volume] in Serum or Plasma MAGNESIUM Lab Routine Memory change Expected: 06/19/2024, Expires: 09/18/2024 [facility] Comment on above: Expected: 06/19/2024, Expires: Start: 06-19-2024 End: 09-18-2024 Thyrotropin [Units/volume] in Serum or Plasma THYROID STIMULATING HORMONE Lab Routine Memory change Expected: 06/19/2024, Expires: 09/18/2024 [facility] Comment on above: Expected: 06/19/2024, Expires: Start: 06-19-2024 End: 09-18-2024 Urinalysis complete panel - Urine URINALYSIS (WITH MICROSCOPIC) WITH CULTURE IF INDICATED Lab Routine Memory change Expected: 06/19/2024, Expires: 09/18/2024 [facility] Comment on above: Expected: 06/19/2024, Expires: Start: 06-19-2024 End: 06-19-2024 Patient encounter procedure 06/19/2024 10:00 AM EDT Office Visit [facility] [address] [place] [address] Dali Rice APRN.BULK PLANT AGENT [address] [place], [place] [phone] Requesting refill of prednisone for continued SOB. See TE 06/17/2024 [facility] Comment on above: Requesting refill of prednisone for cont inued SOB. See TE 06/17/2024 Start: 06-16-2024 End: 09-15-2024 Hemoglobin A1c in Blood HEMOGLOBIN A1C Lab Routine Obesity Expected: 06/16/2024, Expires: 09/15/2024 [facility] Comment on above: Expected: 06/16/2024, Expires: Start: 06-16-2024 End: 09-15-2024 Lipid 1996 panel - Serum or Plasma LIPID PANEL, FASTING Lab Routine Hyperlipidemia Expected: 06/16/2024, Expires: 09/15/2024 [facility] Comment on above: Expected: 06/16/2024, Expires: Start: 06-16-2024 End: 09-15-2024 Microalbumin/Creatinine [Mass Ratio] in Urine ALBUMIN/CREATININE RATIO, URINE Lab Routine CKD (chronic kidney disease) stage 3, GFR 30-59 ml/min ([facility]) Expected: 06/16/2024, Expires: 09/15/2024 [facility] Work Phone: Comment on above: Expected: 06/16/2024, Expires: Start: 06-09-2024 Creatinine measurement Serum Creatinine [facility] Start: 06-05-2024 End: 06-05-2024 Patient encounter procedure 06/05/2024 2:00 PM EDT Office Visit Cardiology [address] [place] [address] Katie Taylor MD [address] [place] [phone] Acute on chronic diastolic congestive heart failure (HCC) [I50.33 Cardiology Comment on above: Acute on chronic diastolic congestive he art failure (HCC) [I50.33 Start: 05-14-2024 End: 05-14-2024 Patient encounter procedure 05/14/2024 2:20 PM EDT Office Visit Rheumatology [address] [place] [address] [place] [address] [place] [address] est care and 6 month follow up osteoporosis/joint pain Rheumatology Comment on above: est care and 6 month follow up osteoporo sis/joint pain Start: 05-08-2024 End: 05-08-2024 Patient encounter procedure 05/08/2024 3:40 PM EST Office Visit [facility] [address] [place] [address] Velvet Palacio MD [address] [place] [address] TCM [facility] f/u dc 05/03/24 for Pneumonia. Pt back on O2. See TCM 05/04/24. [facility] Comment on above: TCM [facility] f/u dc 05/03/24 for Pneumonia. Pt back on O2. See TCM 05/04/24. Start: 05-03-2024 Patient discharge [facility] Start: 05-02-2024 Referral to service [facility] Start: 05-02-2024 Oxygen therapy [facility] Start: 05-01-2024 Following clinical pathway protocol [facility] Start: 05-01-2024 Assessment of risk of venous thromboembolism [facility] Start: 05-01-2024 Elevation of head of bed [facility] Start: 05-01-2024 Insertion of catheter into peripheral vein [facility] Start: 05-01-2024 Patient education [facility] Start: 05-01-2024 Physiotherapy of chest [facility] Start: 05-01-2024 Providing care according to standard [facility] Start: 05-01-2024 Provision of activity privileges [facility] Start: 05-01-2024 Referral to occupational therapist [facility] Start: 05-01-2024 Referral to service [facility] Start: 05-01-2024 [facility] Start: 05-01-2024 Admission procedure [facility] Start: 05-01-2024 Annual PCP Team Chronic Disease Visit Annual PCP Team Chronic Disease Visit [facility] Start: 05-01-2024 Covid-19 Vaccine (#1) Covid-19 Vaccine (#1) [facility] Comment on above: Postponed from 06/17/1961 (Declined at t his time) Start: 05-01-2024 Covid-19 Vaccine () Covid-19 Vaccine ( season) [facility] Comment on above: Postponed from 11/02/2022 (Declined at t his time) Start: 05-01-2024 Pneumococcal vaccination Pneumococcal Vaccine (2 of 2 - PCV) [facility] Comment on above: Postponed from 01/28/2013 (Declined at t his time) Start: 05-01-2024 RSV Vaccine (1 - 1-dose 60+ series) RSV Vaccine (1 - 1-dose 60+ series) [facility] Comment on above: Postponed from 2020 (Declined at t his time) Start: 05-01-2024 RSV Vaccine (1 - Risk 60-74 years 1-dose series) RSV Vaccine (1 - Risk 60-74 years 1-dose series) [facility] Comment on above: Postponed from 2020 (Declined at t his time) Start: 05-01-2024 Shingrix Vaccine (1 of 2) Shingrix Vaccine (1 of 2) [facility] Comment on above: Postponed from 2010 (Declined at t his time) Start: 05-01-2024 Zoledronic acid therapy Alpha-1 Antitrypsin Deficiency Screening [facility] Comment on above: Postponed from 1990 (Declined at t his time) Start: 05-01-2024 Consultation [facility] Start: 05-01-2024 [facility] Start: 05-01-2024 Consultation [facility] Start: 05-01-2024 Patient referral to dietitian [facility] Start: 04-29-2024 Creatinine measurement Serum Creatinine [facility] Start: 04-02-2024 End: 04-02-2024 Patient encounter procedure 04/02/2024 11:00 AM EST Office Visit [facility] [address] [place] [address] Dali Rice APRN.BULK PLANT AGENT [address] [place], [place] [phone] 3 month follow up/discuss medication Levsin [facility] Comment on above: 3 month follow up/discuss medication Lev sin Start: 03-23-2024 End: 03-23-2024 Patient encounter procedure 03/23/2024 2:20 PM EST Office Visit [facility] [address] [place], [place] [phone] Dali Rice APRN.BULK PLANT AGENT [address] [place], [place] [phone] 3 month follow up/discuss medication Levsin [facility] Comment on above: 3 month follow up/discuss medication Lev sin Start: 03-18-2024 End: 03-18-2024 Follow-up encounter 03/18/2024 3:15 PM EST [facility] [address] [place] [address] Nuris Barba APRN.BULK PLANT AGENT [address] [place], [place] [phone] 2nd MBB follow up [facility] Comment on above: 2nd MBB follow up Start: 03-16-2024 End: 03-16-2024 ambulatory [facility] Comment on above: Bilateral MBBs w fluoro at T6-7 and T7-8 (2 of 2); 325mg asp AUTH GOOD CAD ( 5 - 03/03/25) Bilateral MBBs w fluoro at T6-7 and T7-8 (2 of 2); 325mg asp Start: 03-12-2024 End: 03-12-2024 Patient encounter procedure 03/12/2024 2:20 PM EST Office Visit [facility] [address] [place], [place] [phone] Dali Rice 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 ASSOCIATE.BULK PLANT AGENT [address] [place], [place] [phone] 3 month follow up [facility] Comment on above: 3 month follow up Start: 03-04-2024 Medicare Advantage Annual Wellness Visit Medicare Advantage Annual Wellness Visit [facility] Start: 03-02-2024 End: 03-02-2024 Follow-up encounter 03/02/2024 4:00 PM EST [facility] [address] [place] [address] Juanito Hobbs APRN.BULK PLANT AGENT [address] [place] [address] 1st MBB follow up [facility] Comment on above: 1st MBB follow up Start: 02-28-2024 End: 02-28-2024 ambulatory [facility] Comment on above: Bilateral MBBs w fluoro at T6-7 and T7-8 (1 of 2); 325mg asp AUTH GOOD NPCR LMS - Bilateral MBBs w fluoro at T6-7 and T7-8 (1 of 2); 325mg asp Start: 02-25-2024 End: 05-26-2024 Lipid 1996 panel - Serum or Plasma LIPID PANEL BASIC Lab Routine Hyperlipidemia Expected: 02/25/2024, Expires: 05/26/2024 [facility] Comment on above: Expected: 02/25/2024, Expires: 5 Start: 02-25-2024 End: 05-26-2024 Microalbumin/Creatinine [Mass Ratio] in Urine ALBUMIN/CREATININE RATIO, URINE Lab Routine CKD (chronic kidney disease) stage 3, GFR 30-59 ml/min ([facility]) Expected: 02/25/2024, Expires: 05/26/2024 [facility] Work Phone: Comment on above: Expected: 02/25/2024, Expires: 5 Start: 02-12-2024 Annual PCP Team Chronic Disease Visit Annual PCP Team Chronic Disease Visit [facility] Start: 02-12-2024 Complete blood count Hemoglobin/Hematocrit [facility] Start: 02-12-2024 Creatinine measurement Serum Creatinine [facility] Start: 02-10-2024 End: 02-10-2024 Patient encounter procedure 02/10/2024 8:30 AM EST Office Visit Orthopaedics [address] [place] [address] Sebas Molina MD [address] [place] [address] My hands are getting worse. Orthopaedics Comment on above: My hands are getting worse. Start: 02-06-2024 End: 02-06-2024 Patient encounter procedure 02/06/2024 3:00 PM EST Office Visit Cardiology [address] [address] Katie Taylor MD [address] [place] [address] Acute on chronic diastolic congestive heart failure (HCC) [I50.33 Cardiology Comment on above: Acute on chronic diastolic congestive he art failure (HCC) [I50.33 Start: 01-23-2024 End: 01-23-2024 Patient encounter procedure 01/23/2024 2:10 PM EST Appointment Mammogram [address] [place] [address] Mammogram Start: 01-16-2024 End: 01-16-2024 Patient encounter procedure [facility] Comment on above: new pt back pain Start: 01-10-2024 End: 04-10-2024 Basic metabolic 2000 panel - Serum or Plasma BASIC METABOLIC PANEL Lab Routine Hypokalemia Expected: 01/10/2024 (Approximate), Expires: 04/10/2024 [facility] Work Phone: Comment on above: Expected: 01/10/2024 (Approximate), Expi res: 04/10/2024 Start: 01-06-2024 End: 01-06-2024 Patient encounter procedure 01/06/2024 3:20 PM EST Office Visit [facility] [address] [facility] [place] [address] Velvet Palacio MD [address] [facility] [place] [address] Potassium f/u [facility] Comment on above: Potassium f/u Start: 12-26-2023 End: 12-26-2023 ambulatory 12/26/2023 4:00 PM EDT [facility] [address] [place] [address] [facility] Start: 12-26-2023 End: 03-26-2024 Basic metabolic 2000 panel - Serum or Plasma BASIC METABOLIC PANEL Lab Routine Stage 3 chronic kidney disease, unspecified whether stage 3a or 3b CKD (HCC) Expected: 12/26/2023 (Approximate), Expires: 03/26/2024 [facility] Work Phone: Comment on above: Expected: 12/26/2023 (Approximate), Expi res: 03/26/2024 Start: 12-16-2023 End: 12-16-2023 Patient encounter procedure 12/16/2023 12:45 PM EDT Office Visit Orthopaedics [address] [place] [address] Sebas Molina MD [address] [place] [address] Post op right CMC arthroplasty with tendon transfer and suspension Orthopaedics Comment on above: Post op right CMC arthroplasty with tend on transfer and suspension Start: 12-11-2023 End: 03-11-2024 Basic metabolic 2000 panel - Serum or Plasma [facility] Work Phone: Comment on above: Expected: 12/11/2023, Expires: Start: 12-11-2023 End: 03-11-2024 CBC panel - Blood by Automated count [facility] Comment on above: Expected: 12/11/2023, Expires: Start: 12-11-2023 End: 12-11-2023 Patient encounter procedure 12/11/2023 2:00 PM EDT Office Visit [facility] [address] [place] [address] Dali Rice APRN.BULK PLANT AGENT [address] [place] [address] 6 month f/u [facility] Comment on above: 6 month f/u Start: 12-09-2023 End: 12-09-2023 Patient encounter procedure 12/09/2023 1:20 PM EDT Office Visit [facility] [address] [facility] [place] [address] Velvet Palacio MD [address] [place] [address] Blood pressure check [facility] Comment on above: Blood pressure check Start: 11-25-2023 End: 11-25-2023 Patient encounter procedure 11/25/2023 3:00 PM EDT Office Visit [facility] [place] [address] [facility] [place] [address] Dali Rice APRN.BULK PLANT AGENT [address] [facility] [place] [address] Blood pressure check [facility] Comment on above: Blood pressure check Start: 11-19-2023 End: 11-19-2023 Patient encounter procedure 11/19/2023 1:15 PM EDT Office Visit Orthopaedics [address] [address] Sebas Molina MD [address] [place] [facility] [place] [address] Post op right CMC arthroplasty with tendon transfer and suspension Orthopaedics Comment on above: Post op right CMC arthroplasty with tend on transfer and suspension Start: 11-12-2023 End: 11-07-2024 25-hydroxyvitamin D3 [Mass/volume] in Serum or Plasma VITAMIN D 25 HYDROXY Lab Routine Osteoporosis, post menopausal Expected: 11/12/2023 (Approximate), Expires: 11/07/2024 [facility] Comment on above: Expected: 11/12/2023 (Approximate), Expi res: 11/07/2024 Start: 11-12-2023 End: 11-07-2024 Calcium [Mass/volume] in Serum or Plasma CALCIUM, TOTAL Lab Routine Osteoporosis, post menopausal Expected: 11/12/2023 (Approximate), Expires: 11/07/2024 [facility] Work Phone: Comment on above: Expected: 11/12/2023 (Approximate), Expi res: 11/07/2024 Start: 11-12-2023 End: 11-07-2024 CREATININE BLD CREATININE BLD Lab Routine Osteoporosis, post menopausal Expected: 11/12/2023 (Approximate), Expires: 11/07/2024 [facility] Comment on above: Expected: 11/12/2023 (Approximate), Expi res: 11/07/2024 Start: 11-12-2023 End: 11-12-2023 Patient encounter procedure 11/12/2023 1:00 PM EDT Office Visit Rheumatology [address] [place] [address] Mari Martinez, MANASA.BULK PLANT AGENT [address] [place] [address] 6mo follow up osteoporosis/joint pain Rheumatology Comment on above: 6mo follow up osteoporosis/joint pain Start: 11-06-2023 End: 11-06-2023 Patient encounter procedure [facility] Comment on above: follow up-elevated blood pressure Start: 11-05-2023 End: 11-05-2023 Patient encounter procedure Orthopaedics Comment on above: Post op right CMC arthroplasty with tend on transfer and suspension Start: 11-03-2023 Covid-19 Vaccine ( season) Covid-19 Vaccine ( season) [facility] Start: 11-03-2023 Covid-19 Vaccine ( season) Covid-19 Vaccine ( season) [facility] Start: 11-03-2023 Influenza vaccination [facility] Start: 10-29-2023 End: 10-29-2023 Patient encounter procedure 10/29/2023 3:30 PM EDT Office Visit Rheumatology [address] [place] [phone] Mari Martinez, 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 ASSOCIATE.BULK PLANT AGENT [address] [place] [address] 6mo follow up osteoporosis Rheumatology Comment on above: 6mo follow up osteoporosis Start: 10-28-2023 End: 10-28-2023 Patient encounter procedure 10/28/2023 1:40 PM EDT Office Visit Cardiology [address] [address] Katie Taylor MD [address] [place] [address] Acute on chronic diastolic congestive heart failure (HCC) [I50.33 Cardiology Comment on above: Acute on chronic diastolic congestive he art failure (HCC) [I50.33 Start: 10-23-2023 End: 10-23-2023 Admission to same day surgery center 10/23/2023 11:38 AM EDT - 10/23/2023 1:28 PM EDT [facility] [address] [place] [address] Sebas Molina MD [address] [place] [address] ARTHROPLASTY CARPOMETACARPAL JOINTS [facility] Comment on above: ARTHROPLASTY CARPOMETACARPAL JOINTS Start: 10-23-2023 End: 10-23-2023 Arthrp interpos intercarpal/metacarpal joints ARTHROPLASTY CARPOMETACARPAL JOINTS Primary osteoarthritis of first carpometacarpal joint of right hand 10/23/2023 11:38 AM EDT [facility] Start: 10-23-2023 Subsequent hospital visit by physician 10/23/2023 11:38 AM EDT Hospital Encounter [facility] Surgery [address] [place] [address] Sebas Molina MD [address] [place] [address] Primary osteoarthritis of first carpometacarpal joint of right hand [M18.11] [facility] Comment on above: Primary osteoarthritis of first carpomet acarpal joint of right hand [M18.11] Start: 10-23-2023 End: 10-23-2023 Admission to same day surgery center 10/23/2023 9:40 AM EDT - 10/23/2023 11:07 AM EDT Surgery [facility] Surgery [address] [place] [address] Sebas Molina MD [address] [place] [address] ARTHROPLASTY CARPOMETACARPAL JOINTS [facility] Comment on above: ARTHROPLASTY CARPOMETACARPAL JOINTS Start: 10-23-2023 End: 10-23-2023 Arthrp interpos intercarpal/metacarpal joints ARTHROPLASTY CARPOMETACARPAL JOINTS Primary osteoarthritis of first carpometacarpal joint of right hand 10/23/2023 9:40 AM EDT [facility] Start: 10-23-2023 Subsequent hospital visit by physician 10/23/2023 9:40 AM EDT Hospital Encounter [facility] Surgery [address] [place] [address] Sebas Molina MD [address] [place] [address] Primary osteoarthritis of first carpometacarpal joint of right hand [M18.11] [facility] Comment on above: Primary osteoarthritis of first carpomet acarpal joint of right hand [M18.11] Start: 10-22-2023 End: 10-22-2023 Patient encounter procedure 10/22/2023 12:20 PM EDT Office Visit [facility] [address] [place] [address] Ines Lopez PA-C [address] [place] [address] Medication Review--Needing Imodium more frequently. Requests Sumatriptan refill. Doesn't feel hydroyxzine is as effective for anxiety. [facility] Comment on above: Medication Review--Needing Imodium more frequently. Requests Sumatriptan refill. Doesn't feel hydroyxzine is as effective for anxiety. Start: 10-07-2023 End: 10-07-2023 Anesthesia consultation 10/07/2023 3:40 PM EDT PAT Pre Anesthesia [address] [place] [address] 1, [address] [place] [address] ARTHROPLASTY CARPOMETACARPAL JOINTS [53225] - Hand - Right Pre Anesthesia Comment on above: ARTHROPLASTY CARPOMETACARPAL JOINTS [[id number] 90] - Hand - Right Start: 10-02-2023 ANNUAL PCP TEAM CHRONIC DISEASE VISIT ANNUAL PCP TEAM CHRONIC DISEASE VISIT [facility] Start: 10-02-2023 BP CONTROLLED (<130/80) BP CONTROLLED (<130/80) [facility] Start: 09-13-2023 End: 09-13-2023 Patient encounter procedure 09/13/2023 8:45 AM EDT Office Visit Pulmonary Medicine [address] [place] [address] Radha Willams MD [address] [place] [address] Follow up/ No available appt sooner Pulmonary Medicine Comment on above: Follow up/ No available appt sooner Start: 09-02-2023 End: 09-02-2023 Patient encounter procedure Orthopaedics Comment on above: Both Wrist pain Xray Start: 09-01-2023 Influenza vaccination Influenza Vaccine (#1) [facility] Comment on above: Postponed from 11/02/2022 (Declined at t his time) Start: 08-23-2023 End: 08-23-2023 Patient encounter procedure 08/23/2023 3:00 PM EDT Office Visit Cardiology [address] [address] Katie Taylor MD [address] [place] [address] Acute on chronic diastolic congestive heart failure (HCC) [I50.33 Cardiology Comment on above: Acute on chronic diastolic congestive he art failure (HCC) [I50.33 Start: 08-12-2023 DIABETES SCREEN DIABETES SCREEN [facility] Start: 07-24-2023 End: 07-24-2023 Patient encounter procedure 07/24/2023 9:00 AM EDT Appointment Radiology [address] [facility] [address] [place], [place] [id number] Asthma with chronic obstructive pulmonary disease (COPD) (HCC) [J44.89] Radiology Comment on above: Asthma with chronic obstructive pulmonar y disease (COPD) (HCC) [J44.89] Start: 07-24-2023 End: 07-24-2023 ambulatory [facility] Comment on above: Asthma with chronic obstructive pulmonar y disease (COPD) (HCC) [J44.89] Start: 07-23-2023 End: 07-23-2023 Patient encounter procedure 07/23/2023 4:00 PM EDT Appointment Mammogram [address] [place] [address] [address] JEAN CLAUDE SCREENING Mammogram Comment on above: JEAN CLAUDE SCREENING Start: 07-19-2023 End: 08-03-2024 XR Chest PA and Lateral XR CHEST 2V FRONTAL/LAT Radiology Routine Community acquired pneumonia of right lower lobe of lung Expected: 07/19/2023, Expires: 08/03/2024 [facility] Work Phone: Comment on above: Expected: 07/19/2023, Expires: Start: 07-18-2023 End: 07-18-2023 Patient encounter procedure 07/18/2023 2:30 PM EDT Appointment Radiology [address] [place] [address] XR WRIST GENERAL 3V PA/LAT/OBL BILATERAL Radiology Comment on above: XR WRIST GENERAL 3V PA/LAT/OBL BILATERAL Start: 07-18-2023 End: 07-18-2023 Patient encounter procedure Radiology Comment on above: X-ray Both Wrist pain Start: 07-18-2023 End: 07-18-2023 ambulatory [facility] Comment on above: Asthma with chronic obstructive pulmonar y disease (COPD) (HCC) [J44.89] Start: 07-16-2023 End: 10-15-2023 Basic metabolic 2000 panel - Serum or Plasma BASIC METABOLIC PANEL Lab Routine Stage 3 chronic kidney disease, unspecified whether stage 3a or 3b CKD (HCC) Expected: 07/16/2023, Expires: 10/15/2023 [facility] Work Phone: Comment on above: Expected: 07/16/2023, Expires: 4 Start: 07-11-2023 End: 07-11-2023 Patient encounter procedure Internal Medicine [place] Comment on above: follow up - BP, CHF, pnuemonia, hypoxia Pt needs refill on A mitriptyline. follow up - BP, CHF, pnuemonia, hypoxia Start: 07-05-2023 End: 10-04-2023 Alpha 1 antitrypsin [Mass/volume] in Serum or Plasma [id number] Lab Routine Asthma with chronic obstructive pulmonary disease (COPD) ([facility]) Expected: 07/05/2023, Expires: 10/04/2023 [facility] Comment on above: Expected: 07/05/2023, Expires: 4 Start: 06-10-2023 End: 09-09-2023 Basic metabolic 2000 panel - Serum or Plasma [facility] Work Phone: Comment on above: Expected: 06/10/2023, Expires: 4 Start: 06-10-2023 End: 09-09-2023 Natriuretic peptide.B prohormone N-Terminal [Mass/volume] in Serum or Plasma [facility] Work Phone: Comment on above: Expected: 06/10/2023, Expires: 4 Start: 06-06-2023 Patient discharge [facility] Start: 06-06-2023 [facility] Start: 06-04-2023 Troponin I measurement [facility] Start: 06-04-2023 Following clinical pathway protocol [facility] Start: 06-04-2023 Ambulation without limitation [facility] Start: 06-04-2023 Assessment of risk of venous thromboembolism [facility] Start: 06-04-2023 Elevation of head of bed [facility] Start: 06-04-2023 Incentive spirometry [facility] Start: 06-04-2023 Inhalation therapy procedure [facility] Start: 06-04-2023 Insertion of catheter into peripheral vein [facility] Start: 06-04-2023 Measuring intake and output [facility] Start: 06-04-2023 Patient education [facility] Start: 06-04-2023 Providing care according to standard [facility] Start: 06-04-2023 Referral to occupational therapist [facility] Start: 06-04-2023 Referral to service [facility] Start: 06-04-[address] [facility] Start: 06-04-2023 [facility] Start: 06-04-2023 End: 06-04-2023 Oxygen therapy [facility] Start: 06-04-2023 Hospital admission, emergency, from emergency room, medical nature [facility] Start: 06-04-2023 Bacteria identified in Sputum by Culture [facility] Start: 06-04-2023 Legionella pneumophila Ag [Presence] in Urine [facility] Start: 06-04-2023 Streptococcus pneumoniae antigen assay [facility] Start: 06-04-2023 [facility] Start: 06-04-2023 Troponin I measurement [facility] Start: 06-04-2023 Verification routine [facility] Start: 06-04-2023 Admission procedure [facility] Start: 06-04-2023 Bacteria identified in Blood by Culture Blood Culture [facility] Start: 06-04-2023 End: 06-04-2023 Blood culture [facility] Start: 06-04-[address] [facility] Start: 06-04-2023 Dual pressure spontaneous ventilation support [facility] Start: 05-20-2023 Patient discharge [facility] Start: 05-19-2023 Consultation [facility] Start: 05-17-2023 Physiotherapy of chest [facility] Start: 05-17-2023 Physiotherapy of chest [facility] Start: 05-16-2023 End: 08-15-2023 Calcium [Mass/volume] in Serum or Plasma CALCIUM TOTAL BLD Lab Routine Osteoporosis, post menopausal Encounter for long-term (current) use of medications Expected: 05/16/2023 (Approximate), Expires: 08/15/2023 [facility] Work Phone: Comment on above: Expected: 05/16/2023 (Approximate), Expi res: 08/15/2023 Start: 05-16-2023 Referral to service [facility] Start: 05-16-2023 Contact precautions [facility] Start: 05-14-2023 Consultation [facility] Start: 05-13-2023 Referral to occupational therapist [facility] Start: 05-13-2023 Referral to service [facility] Start: 05-12-[address] [facility] Start: 05-11-2023 [facility] Start: 05-11-2023 Oxygen therapy [facility] Start: 05-11-2023 Respiratory secretion precautions [facility] Start: 05-11-2023 Following clinical pathway protocol [facility] Start: 05-11-2023 Ambulation without limitation [facility] Start: 05-11-2023 Assessment of risk of venous thromboembolism [facility] Start: 05-11-2023 Insertion of catheter into peripheral vein [facility] Start: 05-11-2023 Measuring intake and output [facility] Start: 05-11-2023 Patient referral to dietitian [facility] Start: 05-11-2023 Providing care according to standard [facility] Start: 05-11-2023 [facility] Start: 05-11-2023 Verification routine [facility] Start: 05-11-2023 Admission procedure [facility] Start: 05-11-2023 Bacteria identified in Blood by Culture Blood Culture [facility] Start: 05-11-2023 Hospital admission, emergency, from emergency room, medical nature [facility] Start: 05-11-2023 [facility] Start: 05-11-2023 End: 05-11-2023 Blood culture [facility] Start: 05-11-2023 Enteric precautions [facility] Start: 05-11-2023 Inhalation therapy procedure [facility] Start: 01-31-2023 ANNUAL PCP TEAM CHRONIC DISEASE VISIT ANNUAL PCP TEAM CHRONIC DISEASE VISIT [facility] Start: 01-31-2023 HEMOGLOBIN/HEMATOCRIT HEMOGLOBIN/HEMATOCRIT [facility] Start: 01-31-2023 SERUM CREATININE SERUM CREATININE [facility] Start: 01-22-2023 End: 04-23-2023 Lipid 1996 panel - Serum or Plasma LIPID PANEL BASIC Lab Routine Hyperlipidemia Expected: 01/22/2023, Expires: 04/23/2023 [facility] Work Phone: Comment on above: Expected: 01/22/2023, Expires: Start: 01-22-2023 End: 04-23-2023 Renal function 2000 panel - Serum or Plasma RENAL FUNCTION PANEL Lab Routine CKD (chronic kidney disease) stage 3, GFR 30-59 ml/min ([facility]) Expected: 01/22/2023, Expires: 04/23/2023 [facility] Work Phone: Comment on above: Expected: 01/22/2023, Expires: 4 Start: 01-03-2023 ANNUAL PCP TEAM CHRONIC DISEASE VISIT ANNUAL PCP TEAM CHRONIC DISEASE VISIT [facility] Start: 11-14-2022 Bacteria identified in Urine by Culture Urine Culture [facility] Start: 11-14-2022 [facility] Start: 11-02-2022 Influenza vaccination [facility] Start: 10-09-2022 [facility] Start: 10-01-2022 End: 12-01-2022 Amylase [Enzymatic activity/volume] in Serum or Plasma AMYLASE BLD Lab Routine Epigastric pain Expected: 10/01/2022, Expires: 12/01/2022 [facility] Work Phone: Comment on above: Expected: 10/01/2022, Expires: 3 Start: 10-01-2022 End: 12-01-2022 CBC W Auto Differential panel - Blood CBC + DIFF Lab Routine Essential hypertension Epigastric pain Diarrhea, unspecified type Expected: 10/01/2022, Expires: 12/01/2022 [facility] Work Phone: Comment on above: Expected: 10/01/2022, Expires: 3 Start: 10-01-2022 End: 12-01-2022 Comprehensive metabolic 2000 panel - Serum or Plasma COMP METABOLIC PANEL Lab Routine Essential hypertension Hyperlipidemia, unspecified hyperlipidemia type Epigastric pain Diarrhea, unspecified type Expected: 10/01/2022, Expires: 12/01/2022 [facility] Work Phone: Comment on above: Expected: 10/01/2022, Expires: 3 Start: 10-01-2022 End: 12-01-2022 Lipase [Enzymatic activity/volume] in Serum or Plasma LIPASE BLD Lab Routine Epigastric pain Expected: 10/01/2022, Expires: 12/01/2022 [facility] Work Phone: Comment on above: Expected: 10/01/2022, Expires: 3 Start: 10-01-2022 End: 12-01-2022 Lipid 1996 panel - Serum or Plasma LIPID PANEL BASIC Lab Routine Hyperlipidemia, unspecified hyperlipidemia type Expected: 10/01/2022, Expires: 12/01/2022 [facility] Work Phone: Comment on above: Expected: 10/01/2022, Expires: 3 Start: 10-01-2022 End: 12-01-2022 PAIN PANEL, UR QUANT PAIN PANEL, UR QUANT Lab Routine Fibromyalgia Medication management Expected: 10/01/2022, Expires: 12/01/2022 [facility] Work Phone: Comment on above: Expected: 10/01/2022, Expires: 3 Start: 10-01-2022 End: 12-01-2022 TOX SCREEN ROUT UR TOX SCREEN ROUT UR Lab Routine Fibromyalgia Medication management Expected: 10/01/2022, Expires: 12/01/2022 [facility] Work Phone: Comment on above: Expected: 10/01/2022, Expires: 3 Start: 09-18-2022 End: 11-18-2022 Lipid 1996 panel - Serum or Plasma LIPID PANEL BASIC Lab Routine Hyperlipidemia Expected: 09/18/2022, Expires: 11/18/2022 [facility] Work Phone: Comment on above: Expected: 09/18/2022, Expires: 3 Start: 08-31-2022 Influenza vaccination INFLUENZA (#1) [facility] Comment on above: Postponed from 11/02/2021 (Declined at t his time) Start: 07-26-2022 ANNUAL PCP TEAM CHRONIC DISEASE VISIT ANNUAL PCP TEAM CHRONIC DISEASE VISIT [facility] Start: 07-26-2022 HEMOGLOBIN/HEMATOCRIT HEMOGLOBIN/HEMATOCRIT [facility] Start: 07-26-2022 PNEUMOCOCCAL (2 - PCV) PNEUMOCOCCAL (2 - PCV) [facility] Comment on above: Postponed from 01/28/2013 (Declined at t his time) Start: 07-26-2022 SERUM CREATININE SERUM CREATININE [facility] Start: 06-26-2022 ANNUAL PCP TEAM CHRONIC DISEASE VISIT ANNUAL PCP TEAM CHRONIC DISEASE VISIT [facility] Start: 06-26-2022 COVID-19 VACCINE (#1) COVID-19 VACCINE (#1) [facility] Comment on above: Postponed from 1965 (Declined at t his time) Postponed from 06/17 (Declined at this time) Start: 06-26-2022 COVID-19 VACCINE (1) COVID-19 VACCINE (1) [facility] Comment on above: Postponed from 1965 (Declined at t his time) Start: 06-26-2022 SHINGRIX VACCINE (1 of 2) SHINGRIX VACCINE (1 of 2) [facility] Comment on above: Postponed from 2010 (Declined at t his time) Start: 06-19-2022 End: 08-19-2022 Lipid 1996 panel - Serum or Plasma LIPID PANEL BASIC Lab Routine Hyperlipidemia Expected: 06/19/2022, Expires: 08/19/2022 [facility] Work Phone: Comment on above: Expected: 06/19/2022, Expires: 3 Start: 03-23-2022 ANNUAL PCP TEAM CHRONIC DISEASE VISIT ANNUAL PCP TEAM CHRONIC DISEASE VISIT [facility] Start: 01-31-2022 End: 04-02-2022 Amylase [Enzymatic activity/volume] in Serum or Plasma [facility] Work Phone: Comment on above: Expected: 01/31/2022, Expires: 3 Start: 01-31-2022 End: 04-02-2022 CBC W Auto Differential panel - Blood [facility] Work Phone: Comment on above: Expected: 01/31/2022, Expires: 3 Start: 01-31-2022 End: 04-02-2022 Comprehensive metabolic 2000 panel - Serum or Plasma [facility] Work Phone: Comment on above: Expected: 01/31/2022, Expires: 3 Start: 01-31-2022 End: 04-02-2022 Lipase [Enzymatic activity/volume] in Serum or Plasma [facility] Work Phone: Comment on above: Expected: 01/31/2022, Expires: 3 Start: 01-08-2022 Colonoscopy COLONOSCOPY [facility] Start: 01-08-2022 COLORECTAL CANCER SCREENING COLORECTAL CANCER SCREENING [facility] Start: 01-08-2022 Screening for malignant neoplasm of colon [facility] Start: 11-02-2021 Influenza vaccination [facility] Start: 08-11-2021 HEMOGLOBIN/HEMATOCRIT HEMOGLOBIN/HEMATOCRIT [facility] Start: 08-11-2021 SERUM CREATININE SERUM CREATININE [facility] Start: 07-26-2021 End: 09-25-2021 TOX SCREEN ROUT UR TOX SCREEN ROUT UR Lab Routine Poor short term memory Expected: 07/26/2021, Expires: 09/25/2021 [facility] Work Phone: Comment on above: Expected: 07/26/2021, Expires: 2 Start: 07-26-2021 End: 09-25-2021 Urinalysis complete panel - Urine UA WITH CULTURE IF INDICATED Lab Routine Poor short term memory Expected: 07/26/2021, Expires: 09/25/2021 [facility] Work Phone: Comment on above: Expected: 07/26/2021, Expires: 2 Start: 06-26-2021 End: 08-26-2021 C reactive protein [Mass/volume] in Serum or Plasma C-REACTIVE PROTEIN (CRP) Lab Routine Poor short term memory Chronic pain of multiple joints Expected: 06/26/2021, Expires: 08/26/2021 [facility] Work Phone: Comment on above: Expected: 06/26/2021, Expires: 2 Start: 06-26-2021 End: 08-26-2021 Erythrocyte sedimentation rate SED RATE WESTERGREN Lab Routine Poor short term memory Chronic pain of multiple joints Expected: 06/26/2021, Expires: 08/26/2021 [facility] Work Phone: Comment on above: Expected: 06/26/2021, Expires: 2 Start: 06-26-2021 End: 08-26-2021 Thyrotropin [Units/volume] in Serum or Plasma TSH BLD Lab Routine Poor short term memory Expected: 06/26/2021, Expires: 08/26/2021 [facility] Work Phone: Comment on above: Expected: 06/26/2021, Expires: 2 Start: 06-26-2021 End: 08-26-2021 VITAMIN B12 BLOOD VITAMIN B12 BLOOD Lab Routine Poor short term memory Expected: 06/26/2021, Expires: 08/26/2021 [facility] Work Phone: Comment on above: Expected: 06/26/2021, Expires: 2 Start: 2020 RSV Vaccine (1 - 1-dose 60+ series) RSV Vaccine (1 - 1-dose 60+ series) [facility] Start: 2020 RSV Vaccine (1 - Risk 60-74 years 1-dose series) RSV Vaccine (1 - Risk 60-74 years 1-dose series) [facility] Start: 11-02-2020 Influenza vaccination INFLUENZA (#1) [facility] Start: 08-06-2017 Mammography [facility] Start: 08-06-2017 Screening for malignant neoplasm of breast Mammogram Screening [facility] Start: 01-28-2013 PNEUMOCOCCAL (2 - PCV) PNEUMOCOCCAL (2 - PCV) [facility] Start: 01-28-2013 Pneumococcal vaccination [facility] Start: 01-28-2013 Pneumococcal Vaccine: 50+ (2 of 2 - PCV) Pneumococcal Vaccine: 50+ (2 of 2 - PCV) [facility] Start: 2010 SHINGRIX VACCINE (1 of 2) SHINGRIX VACCINE (1 of 2) [facility] Start: 2005 COLOGUARD (FIT-DNA) COLOGUARD (FIT-DNA) [facility] Start: [address] COLONOGRAPHY [facility] Start: 2005 FECAL OCCULT BLOOD FECAL OCCULT BLOOD [facility] Start: 2005 Screening for malignant neoplasm of colon [facility] Start: 2005 SIGMOIDOSCOPY SIGMOIDOSCOPY [facility] Start: 1990 Zoledronic acid therapy ALPHA-1 ANTITRYPSIN DEFICIENCY SCREENING [facility] Start: 1978 BP CONTROLLED (<130/80) BP CONTROLLED (<130/80) [facility] Start: 1965 COVID-19 VACCINE (1) COVID-19 VACCINE (1) [facility] Start: 06-17-1961 COVID-19 VACCINE (#1) COVID-19 VACCINE (#1) [facility] Clostridioides diffi cile DNA [Presence] in Unspecified specimen by RICK with probe detection [facility] Clostridioides diffi cile toxin genes [Presence] in Stool by RICK with probe detection C. DIFFICILE PCR Lab Routine Epigastric pain Diarrhea, unspecified type Ordered: 10/01/2022 [facility] Work Phone: Comment on above: Ordered: 10/01/2022 COLOGUARD COLOGUARD Lab Ro karel Colon cancer screening Ordered: 01/03/2022 [facility] Work Phone: Comment on above: Ordered: 01/03/2022 End: 03-03-2023 Ct abdomen w/o contrast material CT ABDOMEN WO IVCON Radiology Routine Elevated lipase Elevated amylase RUQ pain Nausea Chronic diarrhea 1 Occurrences starting 02/01/2022 until 03/03/2023 [facility] Work Phone: Comment on above: 1 Occurrences starting 02/01/2022 until 03/03/2023 End: 07-29-2025 CT Head WO contrast CT BRAIN WO IVCON Radiology Routine Memory change 1 Occurrences starting 06/29/2024 until 07/29/2025 [facility] Work Phone: Comment on above: 1 Occurrences starting 06/29/2024 until 07/29/2025 End: 12-05-2024 CT Thoracic spine WO contrast CT THORACIC SPINE WO IVCON Radiology Routine Thoracic degenerative disc disease Pain syndrome, chronic Compression deformity of vertebra Abnormal x-ray 1 Occurrences starting 11/06/2023 until 12/05/2024 [facility] Work Phone: Comment on above: 1 Occurrences starting 11/06/2023 until 12/05/2024 End: 09-26-2024 DBT Breast - bilateral screening JEAN CLAUDE SCREENING W TITO Radiology Routine Encounter for screening mammogram for breast cancer 1 Occurrences starting 08/28/2023 until 09/26/2024 [facility] Work Phone: Comment on above: 1 Occurrences starting 08/28/2023 until 09/26/2024 End: 10-31-2023 DXA-AXIAL SKELETON DXA-AXIAL SKELETON Radiology Routine Encounter for screening for osteoporosis Asymptomatic postmenopausal status 1 Occurrences starting 10/01/2022 until 10/31/2023 [facility] Work Phone: Comment on above: 1 Occurrences starting 10/01/2022 until 10/31/2023 ENTERIC BACTERIAL PA TEO BY PCR ENTERIC BACTERIAL PANEL BY PCR Lab Routine Epigastric pain Diarrhea, unspecified type Ordered: 10/01/2022 [facility] Work Phone: Comment on above: Ordered: 10/01/2022 Gastrointestinal pat hogens panel - Stool by RICK with probe detection [facility] Giardia lamblia Ag [Presence] in Stool by Immunoassay [facility] Hemoglobin.gastroint estina l.lower [Presence] in Stool by Immunoassay IMMUNOCHEMICAL FECAL OCCULT BLOOD TEST Lab Routine Anemia, unspecified type Ordered: 07/01/2024 [facility] Work Phone: Comment on above: Ordered: 07/01/2024 End: 08-03-2024 LUNG DIFFUSION CAPACITY (DLCO) LUNG DIFFUSION CAPACITY (DLCO) PFT Routine Asthma with chronic obstructive pulmonary disease (COPD) ([facility]) 1 Occurrences starting 07/05/2023 until 08/03/2024 [facility] Comment on above: 1 Occurrences starting 07/05/2023 until 08/03/2024 End: 08-03-2024 LUNG VOLUMES LUNG VOLUMES PFT Routine Asthma with chronic obstructive pulmonary disease (COPD) ([facility]) 1 Occurrences starting 07/05/2023 until 08/03/2024 [facility] Comment on above: 1 Occurrences starting 07/05/2023 until 08/03/2024 Magnesium [Mass/volu me] in Serum or Plasma [facility] Ova and parasites identified in Unspecified specimen by Light microscopy [facility] Patient Education [facility] Work Phone: Patient referral [facility] Work Phone: End: 11-17-2022 Screening mammography bi 2-view breast inc cad JEAN CLAUDE SCREENING Radiology Routine Encounter for screening mammogram for breast cancer 1 Occurrences starting 10/18/2021 until 11/17/2022 [facility] Work Phone: Comment on above: 1 Occurrences starting 10/18/2021 until 11/17/2022 End: 08-03-2024 SPIROMETRY WITH DILATOR IF OBSTRUCTED SPIROMETRY WITH DILATOR IF OBSTRUCTED PFT Routine Asthma with chronic obstructive pulmonary disease (COPD) ([facility]) 1 Occurrences starting 07/05/2023 until 08/03/2024 [facility] Comment on above: 1 Occurrences starting 07/05/2023 until 08/03/2024 STAPHYLOCOCCUS AUREU S & MRSA SCREEN, PCR, NASAL STAPHYLOCOCCUS AUREUS & MRSA SCREEN, PCR, NASAL Lab Routine MRSA bacteremia Ordered: 08/10/2024 [facility] Work Phone: Comment on above: Ordered: 08/10/2024 End: 03-02-2023 Us abdominal real time w/image limited US ABD RT UPPER QUADRANT Radiology Routine Diarrhea, unspecified type Right upper quadrant abdominal tenderness without rebound tenderness Nausea 1 Occurrences starting 01/31/2022 until 03/02/2023 [facility] Work Phone: Comment on above: 1 Occurrences starting 01/31/2022 until 03/02/2023 End: 07-09-2024 XR Chest PA and Lateral XR CHEST 2V FRONTAL/LAT Radiology STAT Community acquired pneumonia, unspecified laterality Acute on chronic respiratory failure with hypoxia (HCC) Centrilobular emphysema (HCC) 1 Occurrences starting 06/10/2023 until 07/09/2024 [facility] Work Phone: Comment on above: 1 Occurrences starting 06/10/2023 until 07/09/2024 End: 07-19-2025 XR Chest PA and Lateral XR CHEST 2V FRONTAL/LAT Radiology Routine Shortness of breath 1 Occurrences starting 06/19/2024 until 07/19/2025 [facility] Comment on above: 1 Occurrences starting 06/19/2024 until 07/19/2025 XR Chest PA and Lateral XR CHEST 2V FRONTAL/LAT Radiology Routine Shortness of breath 06/19/2024 10:58 AM EDT [facility] XR Wrist - bilateral PA and Lateral and Oblique XR WRIST GENERAL 3V PA/LAT/OBL BILATERAL Radiology Routine Pain 09/02/2023 9:09 AM EDT [facility] Work Phone: [facility] Immunizations Immunization Date Immunization Notes Care Provider [facility] 12-11-2023 influenza, seasonal, injectable 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 Work Phone: [facility] 12-03-2019 influenza, injectabl e, quadrivalent, contains preservative 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[employer] Work Phone: [facility] 12-03-2019 influenza virus vacc ine, unspecified formulation 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[employer] Work Phone: [facility] 07-22-2018 tetanus toxoid, redu vida diphtheria toxoid, and acellular pertussis vaccine, adsorbed 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[employer] Work Phone: [facility] Work Phone: 12-13-2015 influenza, injectabl e, quadrivalent, contains preservative 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[employer] Work Phone: [facility] 03-25-2015 influenza, injectabl e, quadrivalent, preservative free [facility] 03-25-2015 influenza, seasonal, injectable, preservative free 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[employer] Work Phone: [facility] Work Phone: 01-01-2013 influenza virus vacc ine, unspecified formulation 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[employer] Work Phone: [facility] 01-29-2012 pneumococcal polysaccharide vaccine, 23 valent 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[employer] Work Phone: [facility] 12-03-2011 influenza virus vacc ine, unspecified formulation 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[employer] Work Phone: [facility] 01-04-2011 influenza virus vacc ine, unspecified formulation 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[employer] Work Phone: [facility] 01-04-2011 tetanus toxoid, redu vida diphtheria toxoid, and acellular pertussis vaccine, adsorbed 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[employer] Work Phone: [facility] 01-12-2010 influenza virus vacc ine, unspecified formulation 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[employer] Work Phone: [facility] 12-07-2008 influenza virus vacc ine, unspecified formulation 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[employer] Work Phone: [facility] Work Phone: 01-07-2008 influenza virus vacc ine, unspecified formulation 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[employer] Work Phone: [facility] 12-31-2006 influenza virus vacc ine, unspecified formulation 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[employer] Work Phone: [facility] 01-02-2003 pneumococcal polysaccharide vaccine, 23 valent 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[employer] Work Phone: [facility] Work Phone: Payers Date Payer Category Payer Unknown [id number] 2024 Medicare (Managed Care) 1.2. [id number] 2023 Private Health Insurance [id number] 2023 Medicaid [id number] 2023 Medicare [id number] 2023 Self-pay [id number] 2021 Medicare UHC MEDICARE [facility] DUAL COMPLETE HMO SNP [id number] 2021-[facility] [phone] [address] [place] [address] Medicare [id number] 2020 Medicare HUMANA MEDICARE HUMANA GOLD PLUS [id number] 2020-2021 [address] [address] [place] [address] HMO [id number] 2001 Medicare [id number] 2001 Medicare [id number] 2001 Medicare [id number] 1960 Unknown [id number] 2.16.840.1.483805.3.579.2.6 27 Unknown [facility] MCRDUAL COMPLETE [id number] 21 [id number] Unknown [id number] 2.16.840.1.676727.3.579.2.4 62 Unknown [id number] 2.16.840.1.906173.3.579.2.4 62 Unknown [id number] 2.16.840.1.977867.3.579.2.4 62 Unknown [id number] 2.16.840.1.774120.3.579.2.4 62 Unknown [id number] 2.16.840.1.371063.3.579.2.4 62 Unknown [id number] 2.16.840.1.290919.3.579.2.4 62 Unknown [id number] 2.16.840.1.490792.3.579.2.4 62 Unknown [id number] 2.16.840.1.655510.3.579.2.4 62 Unknown [id number] 2.16.840.1.552358.3.579.2.4 62 Unknown [id number] 2.16.840.1.311352.3.579.2.4 62 Unknown [id number] 2.16.840.1.084364.3.579.2.4 62 Unknown [id number] 2.16.840.1.371859.3.579.2.4 62 Unknown [id number] 2.16.840.1.696728.3.579.2.4 62 Unknown [id number] 2.16.840.1.815700.3.579.2.4 62 Unknown [id number] 2.16.840.1.942236.3.579.2.4 62 Unknown [id number] 2.16.840.1.127675.3.579.2.4 62 Unknown [id number] 2.16.840.1.155423.3.579.2.4 62 Unknown [id number] 2.16.840.1.913005.3.579.2.4 62 Unknown [id number] 2.16.840.1.830303.3.579.2.4 62 Unknown [id number] 2.16.840.1.940715.3.579.2.4 62 Unknown [id number] 2.16.840.1.843836.3.579.2.4 62 Unknown [id number] 2.16.840.1.161835.3.579.2.4 62 Unknown [id number] 2.16.840.1.224271.3.579.2.4 62 Unknown [id number] 2.16.840.1.198872.3.579.2.4 62 Unknown [id number] 2.16.840.1.762315.3.579.2.4 62 Unknown [id number] 2.16.840.1.779509.3.579.2.4 62 Unknown [id number] 2.16.840.1.570374.3.579.2.4 62 Unknown [id number] 2.16.840.1.920416.3.579.2.4 62 Social History Date Type Detail Facility Start: 04-06-2014 End: 08-06-2024 Tobacco smoking status NHIS Ex-smoker [facility] Work Phone: Start: 1973 End: 03-04-1989 History of tobacco use Current smoker [facility] Work Phone: Start: 1973 End: 03-04-1989 History of tobacco use Cigarette Smoker [facility] Work Phone: Start: 04-06-2014 End: 07-09-2022 Cigarettes smoked current (pack per day) - Reported 0.5 [facility] Start: 04-06-2014 End: 10-22-2023 Tobacco use and exposure Smokeless tobacco non-user [facility] Work Phone: Start: 03-23-2021 End: 08-10-2024 Alcohol intake Current non-drinker of alcohol (finding) [facility] Start: 12-03-2019 End: 12-29-2021 History SDOH Alcohol Frequency 1 [facility] Start: 12-03-2019 History SDOH Alcohol Std Drinks 98 [facility] Start: 03-25-2019 History SDOH Social Connections Phone 5 [facility] Start: 12-03-2019 End: 12-29-2021 History SDOH Social Connections Yazdanism 2 [facility] Start: 03-25-2019 History SDOH Social Connections Living 8 [facility] Start: 03-25-2019 History SDOH Financial 4 [facility] Start: 03-25-2019 History SDOH Food Worry 3 [facility] Start: 03-24-2019 Education 14 [facility] Start: 04-25-2015 End: 01-29-2023 Tobacco Comment Both parents smoked in childhood home. Lived with smoker as adult. [facility] Start: 1960 Sex Assigned At Not on file [facility] Start: 02-21-2021 End: 06-14-2021 Exposure to SARS-CoV-2 (event) Not sure [facility] Start: 06-16-2021 End: 10-30-2021 Exposure to SARS-CoV-2 (event) Unable to assess [facility] Start: 12-02-2019 End: 07-09-2022 Social connection and isolation panel [facility] Frequency of Communication with Friends and Family Not on file [facility] How often to you hav e a drink containing alcohol? Never [facility] How hard is it for y ou to pay for the very basics like food, housing, medical care, and heating Not very hard [facility] Do you feel stress - tense, restless, nervous, or anxious, or unable to sleep at night because your mind is troubled all the time - these days [OSQ] Very much [facility] (I/We) worried whesydnee er (my/our) food would run out before (I/we) got money to buy more. Never true [facility] Work Phone: In the past 12 month s, was there a time when you were not able to pay the mortgage or rent on time? No [facility] Start: 12-08-2020 Gender identity Identifies as female gender (finding) [facility] Start: 12-08-2020 Sexual orientation Heterosexual (finding) [facility] Start: 11-14-2022 End: 06-04-2023 Tobacco smoking status OKIS Unknown if ever smoked [facility] Start: 06-08-2017 None [facility] Start: 05-14-2018 Spouse/ Significant Other;With Family [facility] Start: 07-27-2014 Cigarettes [facility] Start: 1960 Sex Assigned At Female [facility] The food that (I/we) bought just didn't last, and (I/we) didn't have money to get more. Sometimes true [facility] In the past 12 month s, was there a time when you were not able to pay the mortgage or rent on time? Yes [facility] Are you now , , , , never or living with a partner? Living with partner [facility] How hard is it for y ou to pay for the very basics like food, housing, medical care, and heating Hard [facility] Do you feel stress - tense, restless, nervous, or anxious, or unable to sleep at night because your mind is troubled all the time - these days [OSQ] To some extent [facility] (I/We) worried wheth er (my/our) food would run out before (I/we) got money to buy more. Often true [facility] Medical Equipment Procedure Code Equipment Code Equipment Original Text Equipment Identifier Dates [place] Corkscrew Fiberwire 5.5mm 2 Full Thread Peek 14.7mm Suture 2 4 - [id number] Start: 04-10-2017 [place] Corkscrew Fiberwire 5.5mm 2 Full Thread Peek 14.7mm Suture 2 4 - [id number] Start: 04-10-2017 [place] Bio-Swive lock 4.75mm 24.5mm Suture Self Punch Sterile Disposable - [id number] Start: 04-10-2017 [place] Bio-Swive lock 4.75mm 24.5mm Suture Self Punch Sterile Disposable - [id number] Start: 04-10-2017 System Speedbrid ge Fibertape Swivelock 5.5mm Biocomposite 24mm Endoscopic - [id number] Start: 01-01-2018 Graft Arthroflex Thk2.5-3.5mm Decellularized Dermis 80u70vs Soft Tissue - [id number] Start: 01-01-2018 [place] Suturetak Tigerwire 3mm 2 Fiberwire Biocomposite 14.5mm Suture - [id number] Start: 01-01-2018 [place] Suturetak Tigerwire 3mm 2 Fiberwire Biocomposite 14.5mm Suture - [id number] Start: 01-01-2018 Goals Date Patient Goal Desired Activity /State Personal health goal Comment on above: Formatting of this n ote might be different from the original. 05-02-22 Arthritis in her hands makes it hard [...] PCC) Functional Status Date Assessment Result Facility 08-05-2024 Functional status Activity Abili mackenzie Unable to Assess [facility] Work Phone: 08-04-2024 Functional status Bedrest [facility] Work Phone: 05-03-2024 Functional status Ambulates [facility] Work Phone: 06-06-2023 Functional status Ambulates;Bath room Privilege [facility] Work Phone: 05-20-2023 Functional status Bathroom Privilege [facility] Work Phone: 03-29-2015 Are you deaf, or do you have serious difficulty hearing No 03/29/2015 3:28 PM Radha Valencia, RICARDO No [facility] 03-29-2015 Are you blind, or do you have serious difficulty seeing, even when wearing glasses No 03/29/2015 3:28 PM Radha Valencia, RN No [facility] 03-29-2015 Do you have serious difficulty walking or climbing stairs No 03/29/2015 3:28 PM Radha Valencia, RN No [facility] 03-29-2015 Do you have difficul ty dressing or bathing No 03/29/2015 3:28 PM Radha Valencia, RN No [facility] 03-29-2015 Because of a physica l, mental, or emotional condition, do you have difficulty doing errands alone such as visiting a physician's office or shopping No 03/29/2015 3:28 PM Radha Valencia RN No [facility] Mental Status Date Assessment Result Facility 08-14-2024 Cognitive function Voice/Name [facility] Work Phone: 08-06-2024 Cognitive function Voice/Name [facility] Work Phone: 08-05-2024 Cognitive function Voice/Name [facility] Work Phone: 05-03-2024 Cognitive function Voice/Name [facility] Work Phone: 05-02-2024 Cognitive function Cooperative;Talkative [facility] Work Phone: 06-06-2023 Cognitive function Voice/Name [facility] Work Phone: 05-20-2023 Cognitive function Voice/Name [facility] Work Phone: 03-29-2015 Because of a physica l, mental, or emotional condition, do you have serious difficulty concentrating, remembering, or making decisions No 03/29/2015 3:28 PM Radha Valencia RN No [facility] Clinical Notes 12-26-2015 to 08-13-2024 Telephone Encounter - Gustavo Wells RN - 08/13/2024 1:25 PM EDTTelephone Encounter - Gustavo Wells RN - 08/13/2024 1:25 PM EDTTelephone Encounter - Velvet Palacio MD - 08/13/2024 1:02 PM EDT Note Date & Type Note Facility 08-13-2024 Telephone encounter Note Neymar from [facility] called and is notified of providers message and instructions. He voices understanding. Gustavo Wells RN [facility] 08-13-2024 Miscellaneous Notes Neymar from [facility] called and is notified of providers message and instructions. He voices understanding. Gustavo Wells, RN Noted , agree for follow plan Please cont checking bp when ever they make it there to make sure it is better Regards, Velvet Palacio MD Neymar from [facility] calling with PT plan of care, 2 visits weekly for 2 weeks then 1 visit weekly for 2 weeks. Working on functional mobility. He said her blood pressure was elevated 180/104 he visited this morning before patient had taken her medications. documented in this encounter [facility] 08-13-2024 Telephone encounter Note Noted , agree for follow plan Please cont checking bp when ever they make it there to make sure it is better Regards, Velvet Palacio MD [facility] 08-11-2024 Telephone encounter Note Neymar from [facility] calling with PT plan of care, 2 visits weekly for 2 weeks then 1 visit weekly for 2 weeks. Working on functional mobility. He said her blood pressure was elevated 180/104 he visited this morning before patient had taken her medications. [facility] 08-10-2024 Telephone encounter Note Called and left a detailed voicemail notifying [facility] OT of providers message. Clinic phone number was left in case she had any questions. Gustavo Wells RN [facility] 08-10-2024 Miscellaneous Notes Called and left a detailed voicemail notifying Thelma-[facility] OT of providers message. Clinic phone number was left in case she had any questions. Gustavo Wells RN Noted and agree Regards, Velvet Palacio MD Thelma with [facility] OT calls to report she evaluated pt today. Thelma reports OT will see pt once a week x 1 week then twice a week x 2 weeks. Thelma also reports she arrived at pt's home around 10:30 and took pt's bp. Pt told Thelma she just took her bp medication. BP: 189/107 HR 78 Thelma reports pt had no sx of high bp. BP at 11:00 am: 191/98 HR 78 Thelma also reports that pt told Thelma that she was in [facility] ER 08/06 but could not remember why she was at the ER. Pt has an appt today with pcp @ 2pm. Suellen Zaragoza LPN documented in this encounter [facility] 08-10-2024 Telephone encounter Note Homa from [facility] called and is notified of providers message and instructions. She voices understanding. Gustavo Wells RN [facility] 08-10-2024 Miscellaneous Notes Homa from [facility] called and is notified of providers message and instructions. She voices understanding. Gustavo Wells, RN She should stop the amitryptilline, she has already stopped it per patient We stopped the hydroxyzine today, it was only as needed. Cont the lexapro and the trazodone. I am not concerned about interactions with this. Ok to cont buspar Let me know if you have any questionts. Regards, Velvet Palacio MD Homa from [facility] calling with drug to drug interactions with Hydroxyzine and Potassium and Potassium and Amitriptyline. Not sure if patient is still taking Potassium old bottle in her bag at home. Duplicate Therapy Trazodone and Amitriptyline and Hydroxyzine (patient takes 3 times daily) and Buspirone. Asking for a copy of office notes with medications updated after today hospital follow up to be faxed to [facility] at [phone] please. documented in this encounter [facility] 08-10-2024 Telephone encounter Note Unable to reach. Left detailed message on identified VM. Cheri Valenzuela MA [facility] 08-10-2024 Miscellaneous Notes Unable to reach. Left detailed message on identified VM. Cheri Valenzuela MA VO for the same Regards, Velvet Palacio MD Brittany with [facility] SW calls to report order for SW to see pt expires today. Brittany reports she finally was able to get in contact with pt who agreed for Brittany to come out tomorrow. Brittany is calling for a VO to delay start of care to tomorrow. Suellen Zaragoza LPN documented in this encounter [facility] 08-10-2024 Telephone encounter Note She should stop the amitryptilline, she has already stopped it per patient We stopped the hydroxyzine today, it was only as needed. Cont the lexapro and the trazodone. I am not concerned about interactions with this. Ok to cont buspar Let me know if you have any questionts. Regards, Velvet Palacio MD [facility] 08-10-2024 Telephone encounter Note Noted and agree Regards, Velvet Palacio MD [facility] 08-10-2024 Telephone encounter Note VO for the same Regards, Velvet Palacio MD [facility] 08-10-2024 Instructions Velvet Palacio MD - 08/10/2024 3:02 PM EDT We discussed your recent hospitalization and current treatment plan: - You are currently being treated for a small bowel obstruction and MRSA bacteremia. The cause of the obstruction and MRSA infection is unclear. - You are receiving Vancomycin intravenously twice daily for 6 weeks to treat the MRSA infection. This medication may cause fatigue, which is expected. Please continue this treatment as directed. - A home health nurse will assist with your care, including physical therapy and occupational therapy, starting tomorrow. We discussed your medications: - Amitriptyline: You have stopped taking this medication, and I will not restart it at this time. You have shown significant improvement since discontinuing it, including better mobility and alertness. - Hydroxyzine: You may stop taking this medication. - Buspirone (BuSpar): Continue taking this as needed for anxiety. - Lexapro: Continue taking this daily as it helps with your mood. I will monitor for any potential interactions with your other medications. - Trazodone: You may continue taking this at night as needed for sleep. - I will review potential interactions between your medications and Vancomycin to ensure safety. We discussed your COPD and oxygen use: - Continue using your oxygen as prescribed. You may feel winded with physical activity, but you are recovering well. Gradually increase your activity level as tolerated to regain strength. Follow-up instructions: - I will check for a MRSA nasal swab result. If positive, I will prescribe Mupirocin ointment for your nose. - Please monitor for any worsening symptoms, including increased fatigue, difficulty breathing, or signs of infection, and contact me if they occur. - Continue working with your home health team for physical and occupational therapy. Your next steps: - Continue your current treatment plan, including Vancomycin and oxygen therapy. - Follow up with me if you have any concerns about your medications or symptoms. - Maintain your scheduled home health visits for ongoing care and support. documented in this encounter [facility] 08-10-2024 Note HNO ID: [id number] Author: VELVET PALACIO MD Service: ? Author Type: Physician Type: Progress Notes Filed: 08/10/2024 17:33 Note Text: Reason for Visit Follow up HPI Sara Lopez is a 63-year-old female with a history of recurrent small bowel obstructions, MRSA bacteremia, and COPD, presenting for follow-up after a recent hospitalization. Sara was hospitalized 2 weeks ago for a small bowel obstruction and MRSA bacteremia. She reports that this is a recurrent issue, occurring approximately every 10 years, with the last episode 8-10 years ago. During the recent hospitalization, she experienced significant emesis of green bile but did not require surgical intervention. She is currently on a 6-week course of vancomycin, administered twice daily, and reports fatigue associated with the medication. She also has a history of COPD and is on supplemental oxygen. She experiences dyspnea with physical activity but recovers quickly. She is also on multiple medications, including albuterol, ceftriaxone, meloxicam, tizanidine, atorvastatin, lansoprazole, and pregabalin. She recently discontinued amitriptyline about a week ago due to severe side effects, including prolonged sedation and inability to ambulate or speak. She is currently taking trazodone at night for sleep, hydroxyzine as needed for anxiety, Lexapro daily, and BuSpar as needed. She expresses a desire to continue Lexapro, referring to it as her happy pill. Sara is receiving home health care, including physical therapy and occupational therapy. She reports feeling better since discontinuing amitriptyline and is able to ambulate and perform activities of daily living. Social History Tobacco Use Smoking status: Former Current packs/day: 0.00 Average packs/day: 0.5 packs/day for 20.0 years (10.0 ttl pk-yrs) Types: Cigarettes Start date: 1973 Quit date: 03/04/1989 Years since quittin.4 Smokeless tobacco: Never Tobacco comments: Both parents smoked in childhood home. Lived with smoker as adult. Vaping Use Vaping status: Never Used Substance Use Topics Alcohol use: No Drug use: No Past medical history, appointments, medications, allergies reviewed. Pertinent Lab/Diagnostic Studies are reviewed and discussed today Current Outpatient Medications: nitroglycerin sublingual (NITROQUICK) 0.4 mg SL tablet SUMAtriptan (IMITREX) 50 mg tablet Nebulizer Accessories kit pregabalin (LYRICA) 150 mg capsule ipratropium (ATROVENT) 0.02 % nebulizer solution Nebulizer Accessories kit albuterol (PROVENTIL) 2.5 mg /3 mL (0.083 %) nebulizer solution Nebulizer and Compressor For Neb loperamide (IMODIUM) 2 mg cap(s) meloxicam (MOBIC) 15 mg tablet traZODone (DESYREL) 50 mg tablet Blood Pressure Monitor OXYGEN, HOME THERAPY, tiZANidine (ZANAFLEX) 4 mg tablet furosemide (LASIX) 40 mg tablet lisinopril (ZESTRIL) 40 mg tablet escitalopram oxalate (LEXAPRO) 20 mg tablet atorvastatin (LIPITOR) 40 mg tablet ondansetron orally disintegrating (ZOFRAN ODT) 4 mg disintegrating tablet fluticasone-salmeterol (ADVAIR, WIXELA) 250-50 mcg/dose inhaler potassium chloride ER (KLOR-CON) 20 mEq tablet acetaminophen 325 mg cap hyoscyamine sublingual (LEVSIN SL) 0.125 mg Cholecalciferol, Vitamin D3, 2,000 unit tab busPIRone (BUSPAR) [address] (PROTONIX) 40 mg tablet Health Maintenance BP Controlled (<130/80) Shingrix Vaccine(1 of 2) Pneumococcal Vaccine: 50+(2 of 2 - PCV) Mammogram Screening Colorectal Cancer Screening@ Review Of Systems Constitutional: (+) fatigue Respiratory: (+) dyspnea on exertion Musculoskeletal: (+) pain Physical Exam BP 195/115 Pulse 85 Resp 20 Wt 61.7 kg (136 lb 1.9 oz) SpO2 95% BMI 28.95 kg/m? GENERAL: Is on oxygen. therapy SKIN: Unremarkable, no rash or skin lesions. HEAD: Normocephalic. EYES: PERRLA, EOMI, conjunctiva clear. EARS: External ears normal, canals clear, TM's normal. NECK: Supple, no lymphadenopathy, normal thyroid, no carotid bruits. LUNGS: Clear to auscultation bilaterally, no wheezes/rhonchi/rales. HEART: Regular rate and rhythm, no murmurs. No ectopy. EXTREMITIES: Normal, no deformities, no skin discoloration, no edema. NEURO: Awake, alert and oriented x3, cranial nerves II-XII grossly intact, normal gait, no involuntary motions. Labs: - Blood culture: Positive for MRSA Assessment and Plan 1. Hospital discharge follow-up (Z09) MRSA bacteremia (R78.81) Recent hospitalization for small bowel obstruction and MRSA bacteremia. Currently on vancomycin IV therapy twice daily for 6 weeks. No evidence of sepsis. MRSA source unknown, potential skin entry discussed. - Continue vancomycin IV therapy as prescribed. - Check for MRSA nasal colonization; if positive, initiate mupirocin nasal ointment. - Monitor renal function due to potential nephrotoxicity of vancomycin. - Home health care to assist with IV adm (more content not included)... [facility] 08-10-2024 History of Presen t illness Narrative Reason for Visit Follow up HPI Sara Lopez is a 63-year-old female with a history of recurrent small bowel obstructions, MRSA bacteremia, and COPD, presenting for follow-up after a recent hospitalization. Sara was hospitalized 2 weeks ago for a small bowel obstruction and MRSA bacteremia. She reports that this is a recurrent issue, occurring approximately every 10 years, with the last episode 8-10 years ago. During the recent hospitalization, she experienced significant emesis of green bile but did not require surgical intervention. She is currently on a 6-week course of vancomycin, administered twice daily, and reports fatigue associated with the medication. She also has a history of COPD and is on supplemental oxygen. She experiences dyspnea with physical activity but recovers quickly. She is also on multiple medications, including albuterol, ceftriaxone, meloxicam, tizanidine, atorvastatin, lansoprazole, and pregabalin. She recently discontinued amitriptyline about a week ago due to severe side effects, including prolonged sedation and inability to ambulate or speak. She is currently taking trazodone at night for sleep, hydroxyzine as needed for anxiety, Lexapro daily, and BuSpar as needed. She expresses a desire to continue Lexapro, referring to it as her happy pill. Sara is receiving home health care, including physical therapy and occupational therapy. She reports feeling better since discontinuing amitriptyline and is able to ambulate and perform activities of daily living. Social History Tobacco Use Smoking status: Former Current packs/day: 0.00 Average packs/day: 0.5 packs/day for 20.0 years (10.0 ttl pk-yrs) Types: Cigarettes Start date: 1973 Quit date: 03/04/1989 Years since quittin.4 Smokeless tobacco: Never Tobacco comments: Both parents smoked in childhood home. Lived with smoker as adult. Vaping Use Vaping status: Never Used Substance Use Topics Alcohol use: No Drug use: No Past medical history, appointments, medications, allergies reviewed. Pertinent Lab/Diagnostic Studies are reviewed and discussed today Current Outpatient Medications: nitroglycerin sublingual (NITROQUICK) 0.4 mg SL tablet SUMAtriptan (IMITREX) 50 mg tablet Nebulizer Accessories kit pregabalin (LYRICA) 150 mg capsule ipratropium (ATROVENT) 0.02 % nebulizer solution Nebulizer Accessories kit albuterol (PROVENTIL) 2.5 mg /3 mL (0.083 %) nebulizer solution Nebulizer and Compressor For Neb loperamide (IMODIUM) 2 mg cap(s) meloxicam (MOBIC) 15 mg tablet traZODone (DESYREL) 50 mg tablet Blood Pressure Monitor OXYGEN, HOME THERAPY, tiZANidine (ZANAFLEX) 4 mg tablet furosemide (LASIX) 40 mg tablet lisinopril (ZESTRIL) 40 mg tablet escitalopram oxalate (LEXAPRO) 20 mg tablet atorvastatin (LIPITOR) 40 mg tablet ondansetron orally disintegrating (ZOFRAN ODT) 4 mg disintegrating tablet fluticasone-salmeterol (ADVAIR, WIXELA) 250-50 mcg/dose inhaler potassium chloride ER (KLOR-CON) 20 mEq tablet acetaminophen 325 mg cap hyoscyamine sublingual (LEVSIN SL) 0.125 mg Cholecalciferol, Vitamin D3, 2,000 unit tab busPIRone (BUSPAR) [address] (PROTONIX) 40 mg tablet Health Maintenance BP Controlled (<130/80) Shingrix Vaccine(1 of 2) Pneumococcal Vaccine: 50+(2 of 2 - PCV) Mammogram Screening Colorectal Cancer Screening@ Review Of Systems Constitutional: (+) fatigue Respiratory: (+) dyspnea on exertion Musculoskeletal: (+) pain Physical Exam BP 195/115 Pulse 85 Resp 20 Wt 61.7 kg (136 lb 1.9 oz) SpO2 95% BMI 28.95 kg/m GENERAL: Is on oxygen. therapy SKIN: Unremarkable, no rash or skin lesions. HEAD: Normocephalic. EYES: PERRLA, EOMI, conjunctiva clear. EARS: External ears normal, canals clear, TM's normal. NECK: Supple, no lymphadenopathy, normal thyroid, no carotid bruits. LUNGS: Clear to auscultation bilaterally, no wheezes/rhonchi/rales. HEART: Regular rate and rhythm, no murmurs. No ectopy. EXTREMITIES: Normal, no deformities, no skin discoloration, no edema. NEURO: Awake, alert and oriented x3, cranial nerves II-XII grossly intact, normal gait, no involuntary motions. Labs: - Blood culture: Positive for MRSA Assessment and Plan 1. Hospital discharge follow-up (Z09) MRSA bacteremia (R78.81) Recent hospitalization for small bowel obstruction and MRSA bacteremia. Currently on vancomycin IV therapy twice daily for 6 weeks. No evidence of sepsis. MRSA source unknown, potential skin entry discussed. - Continue vancomycin IV therapy as prescribed. - Check for MRSA nasal colonization; if positive, initiate mupirocin nasal ointment. - Monitor renal function due to potential nephrotoxicity of vancomycin. - Home health care to assist with IV administration and monitor patient's condition. 2. Pain syndrome, chronic (G89.4) Discontinued amitriptyline one week ago, reportedly improving mobility and alertness. - Continue current pain management regimen. - Avoid amitriptyline due to previous adverse effects. 3. Essential hypertension (I10) Blood pressure reportedly elevated during hospitalization. - Monitor blood pressure regularly. - Continue current antihypertensive medications. 4. Hyperlipidemia, unspecified hyperlipidemia type (E78.5) On atorvastatin therapy. - Continue atorvastatin as prescribed. 5. Moderate episode of recurrent major depressive disorder (HCC) (F33.1) Anxiety (F41.9) Currently taking Lexapro daily, trazodone at night, and BuSpar as needed. Discontinued hydroxyzine. - Continue Lexapro and trazodone as prescribed. - Use BuSpar as needed for anxiety. - Discontinue hydroxyzine. - Monitor for any interactions with current medications. 6. Gastroesophageal reflux disease without esophagitis (K21.9) - started on protonix. Voice recognition software was used to compose this office note. Please excuse any unintended typographical errors. Recording using [employer] software for draft documentation of the visit was discussed with the patient/authorized personal financial representative; all questions welcomed and answered. Patient/authorized personal financial representative agreed to proceed Velvet Palacio MD documented in this encounter [facility] 08-10-2024 Telephone encounter Note Thelma with [facility] OT calls to report she evaluated pt today. Thelma reports OT will see pt once a week x 1 week then twice a week x 2 weeks. Thelma also reports she arrived at pt's home around 10:30 and took pt's bp. Pt told Thelma she just took her bp medication. BP: 189/107 HR 78 Thelma reports pt had no sx of high bp. BP at 11:00 am: 191/98 HR 78 Thelma also reports that pt told Thelma that she was in [facility] ER 08/06 but could not remember why she was at the ER. Pt has an appt today with pcp @ 2pm. Suellen Zaragoza LPN [facility] 08-10-2024 Telephone encounter Note Homa from [facility] calling with drug to drug interactions with Hydroxyzine and Potassium and Potassium and Amitriptyline. Not sure if patient is still taking Potassium old bottle in her bag at home. Duplicate Therapy Trazodone and Amitriptyline and Hydroxyzine (patient takes 3 times daily) and Buspirone. Asking for a copy of office notes with medications updated after today hospital follow up to be faxed to [facility] at [phone] please. [facility] 08-10-2024 Telephone encounter Note Brittany with [facility] SW calls to report order for SW to see pt expires today. Brittany reports she finally was able to get in contact with pt who agreed for Brittany to come out tomorrow. Brittany is calling for a VO to delay start of care to tomorrow. Suellen Zaragoza LPN [facility] 08-07-2024 Telephone encounter Note Called and left a detailed voicemail notifying Homa from [facility] of providers message. Clinic phone number was left in case she had any questions. Gustavo Wells, RN [facility] 08-07-2024 Miscellaneous Notes Called and left a detailed voicemail notifying Homa from [facility] of providers message. Clinic phone number was left in case she had any questions. Gustavo Wells, RN Will address at follow up Will follow up [facility] Velvet Wan MD Homa calling from [facility] to report plan of care for patient and care home will visit patient 1 time a week for 6 weeks. [facility] will work with patient on PICC line dressing changes and labs. Patient is getting IV Vancomycin [address] White from [facility] is following IV antibiotics and PICC line orders. Homa notes the following medication issues: Drug to Drug Interactions -Hydroxyzine and Potassium -Amitriptyline and Potassium 2. Duplicate Medication Therapies -Buspirone and Hydroxyzine -Amitriptyline and Lexapro -Lexapro and Trazodone 3. Patient reports that she is no longer taking Dexlansoprazole Patient does have hospital follow up visit scheduled with Dr. Palacio on 08/10/2024. Please review and Advise, Homa Martinez RN documented in this encounter [facility] 08-07-2024 Telephone encounter Note Will address at follow up Will follow up [facility] Velvet Wan MD [facility] 08-06-2024 Telephone encounter Note Homa calling from [facility] to report plan of care for patient and care home will visit patient 1 time a week for 6 weeks. [facility] will work with patient on PICC line dressing changes and labs. Patient is getting IV Vancomycin [address] White from [facility] is following IV antibiotics and PICC line orders. Homa notes the following medication issues: Drug to Drug Interactions -Hydroxyzine and Potassium -Amitriptyline and Potassium 2. Duplicate Medication Therapies -Buspirone and Hydroxyzine -Amitriptyline and Lexapro -Lexapro and Trazodone 3. Patient reports that she is no longer taking Dexlansoprazole Patient does have hospital follow up visit scheduled with Dr. Palacio on 08/10/2024. Please review and Advise, Homa Martinez RN [facility] 08-06-2024 Radiology Diagnostic study note [facility] Imaging Services [address], [place] [id number] Abdomen Single View (Portable) MR#: [id number] Acct: [id number] Name: LEYDA OLPEZ Rep #: [id number] : 1960 F 63 From: Heidi Hunter MD PCP: DALI RICE, VINYL DIPPER-C Status: REG ER Study:Abdomen Single View (Portable) Date of Exam: 08/06/24 Exam# [id number] Ordering Dr: Wendi Lopez DO PROCEDURE: ABDOMEN SINGLE VIEW (PORTABLE) 08/06/2024 REASON FOR EXAM: ABD DISTENTION WITH PREVIOUS SBO TECHNIQUE: Frontal views of the abdomen. COMPARISON: Small bowel series on 07/28/2024 FINDINGS: Borderline dilated loops of air-filled small bowel measuring up to 3 cm in diameter. There is a prominent loop of air-filled bowel in the midline abdomen measuring 8.2 cm in diameter. There is radiodense contents present within loops of bowel in the right lower quadrant of the abdomen and pelvis. Osseous structures are unremarkable for age. RAD/Abdomen Single View (Portable) IMPRESSION: Prominent air-filled loops of bowel, similar to prior and with differential including obstruction versus ileus. There are radiodense contents present within loops of bowel in the pelvis, possibly representing oral contrast in the rectum from the small-bowel follow-through performed on 07/28/2024, in which case a complete obstruction is less likely. Consider CT for further evaluation. Reading Location: [facility] CC: VINYL DIPPER-C DALI RICE; Pito Lopez DO ~ Coil Builder: Signed [facility] 08-05-2024 Telephone encounter Note Phoned [facility] left detailed message with notes from Dr Palacio on voicemail for Barby. [facility] 08-05-2024 Miscellaneous Notes Phoned [facility] left detailed message with notes from Dr Palacio on voicemail for Barby. Yes Regards, Vevlet Palacio MD Barby from [facility] calling patient is currently admitted with small bowel obstruction, planning to discharge today with IV antibiotics. Dr Hurst will cover IV orders. Asking if PCP would follow and sign orders for the patient? Received orders for PT/OT. Please advise documented in this encounter [facility] 08-05-2024 Telephone encounter Note Yes Regards, Velvet Palacio MD [facility] 08-05-2024 Discharge summary Note Date/Time August 05, 2024 1:00p m [facility] Medical Records Department [address] [place] [address] Discharge Summary 08/05/24 1252 MR#: [id number] Acct: [id number] Name: LEYDA LOPEZ Rep #:[id number] : 1960 63 From: Linwood Joe DO PCP: DALI OLDER, VINYL DIPPER-C Status:ADM IN Location: [facility] [id number] Providers Date of Admission: 07/26/24 Primary Care Physician: SHMUEL PAGAN Consultations 07/26/24 20:45 Consult: General Surgery Routine Consulting Provider: aKlyan Bass Reason for Consult: SBO EMERGENT Consult: No Notified: Yes Date Notified: 07/26/24 Time Notified: 18:26 Method of Notification: ED Physician Initiated 07/30/24 13:19 Consult: Infectious Disease Routine Consulting Provider: Merrick hWite Reason for Consult: gram positive bacteremia EMERGENT Consult: No Notified: Yes Date Notified: 07/30/24 Time Notified: 13:20 Method of Notification: Text 07/31/24 10:47 Consult: Cardiology Routine Consulting Provider: Sam Gravse Reason for Consult: endocarditis EMERGENT Consult: No [...] IV vancomycin (stop date 09/11). Pt will needto have [facility] to iniate the IV abx at home, [...] diarrhea 07/26/24 vancomycin 500 mg/100 mL in dextrose 5 % intravenous piggyback 500 mg IV Q12H 38days #76 mL 08/04/24 Hospital Course Operations None Procedures PICC line placement Physical Exam Const alert and no apparent distress General Appearance: cooperative and comfortable Extremity normal to inspection and no clubbing, cyanosis or edema Weight / BMI Weight Weight: 64.6 kg Body Mass Index (BMI) 30.8 ABG / Lab / Microbiology Data 08/04/24 04:50 08/04/24 04:50 Laboratory: Laboratory Results - last 24 hr 08/04/24 21:40: Vancomycin Trough 17.2 H Microbiology: Microbiology 07/31/24 09:55 Blood Culture (Wb) - Right Hand Blood Culture - Final No growth in 5 days. 08/01/24 09:13 Blood Culture (Wb) - Left Forearm Blood Culture - Preliminary No growth in 48 hours. 07/29/24 22:30 Blood Culture (Wb) - Anticubital Left Bacteria Detection (PCR) - Final Meth. resistant Staph. aureus 07/29/24 22:30 Blood Culture (Wb) - Anticubital Left Blood Culture - Final Meth. resistant Staph. aureus 07/29/24 22:25 Blood Culture (Wb) - Right Hand Blood Culture - Final Staphylococcus aureus 07/30/24 12:50 Urine, Clean Catch Legionella Antigen - Final 07/30/24 12:50 Urine, Clean Catch Streptococcus pneumoniae Antigen (M - Final 07/30/24 12:20 Mucosa - Nasopharyngeal Respiratory Panel (PCR) - Final D/C Instructions DC O2, CPAP, BIPAP Needs Home O2 Discharge instructions: Yes Type of respiratory needs?: Oxygen (4) Oxygen frequency: Continuous Continuous oxygen liters per minute: 4 DC home with Oxygen: Yes Home O2 MD Review: I have reviewed the oxygen testing, and the patient qualifies for home oxygen equipment and portability. The patient is mobile in the home and the community. Meaningful Use Info Meaningful Use Meaningful Use Diagnoses (Choose all that apply): None applicable Ischemic Stroke Statin Dosing Therapy Reference: STATIN DOSE THERAPY REFERENCE: * Patients > 75 years receive moderate or high dose statin therapy. * Patients 75 years or YOUNGER should receive HIGH intensity statin dose unless contraindicated. You will be required to document reason for non-treatment if statin daily dose does not meet guidelines. HIGH DOSE STATIN THERAPY DAILY Atorvastatin > than or = to 40 mg Rosuvastatin > than or = to 20 mg Amlodipine + Atorvastatin > than or = to 2.5/40 mg Ezetimibe + Simvastatin 10/80 mg Simvastatin 80mg Discharge Plan Admission Admit Date/Time: 07/26/24 18:23 Primary Reason for Your Visit: SBO. bacteremia Attending Provider: Linwood Joe Primary Care Provider: DALI RICE Consulting Providers: Linwood Joe; Dolly Daniels; Sid Hillman; Sam Graves;Kalyan Bass; Merrick White Discharge Orders/Prescriptions Prescriptions: New vancomycin in dextrose 5 % 500 mg/100 mL Piggyback 500 mg IV Q12H 38 Days Qty: 76 0RF Rx Instructions: stop date 09/11/24. Weekly bmp, cbc, and vanc trough. Fax to [phone]. Routine picc care per protocol. Dx: MRSA endocarditis. Continued albuterol sulfate [ProAir HFA] 1 PUFF inhaler 2 puff inhalation Q4H PRN PRN (Reason: Sob &/Or Wheezing) nitroglycerin 0.4 MG tablet, sublingual 0.4 mg sublingual PRN PRN (Reason: CHEST PAIN) ondansetron 4 mg tablet,disintegrating 4 mg PO Q8H PRN PRN (Reason: Nausea) Qty: 14 0RF amitriptyline 100 mg tablet 150 mg PO QHS sumatriptan succinate 50 mg tablet 50 mg PO PRN PRN (Reason: migraine headache) meloxicam 7.5 mg tablet 15 mg PO DAILY Patient Comments: TAKE ONE TABLET BY MOUTH DAILY AT 9AM escitalopram oxalate 20 mg tablet 20 mg PO DAILY tizanidine 4 mg tablet 4 mg PO Q8H PRN PRN (Reason: muscle spasm) atorvastatin 40 mg tablet 40 mg PO QHS buspirone 5 mg tablet 10 mg PO TID dexlansoprazole 60 mg capsule,biphase delayed releas 60 mg PO DAILY hydroxyzine HCl 50 mg tablet 50 mg PO TID PRN (Reason: Anxiety) pregabalin 25 mg capsule 150 mg PO BID acetaminophen 325 mg Tablet 1,000 mg PO Q8H PRN PRN (Reason: fever/pain 1-10) Qty: 0 0RF lisinopril 40 mg tablet 40 mg PO DAILY potassium chloride 20 mEq Tablet,Er Particles/Crystals 20 meq PO DAILYCM Qty: 30 0RF trazodone 50 mg tablet 50 mg PO QHS albuterol sulfate 2.5 mg /3 mL (0.083 %) solution for nebulization 2.5 mg inhalation Q4H PRN PRN (Reason: wheezing) buspirone 10 mg tablet 10 mg PO TID fluticasone propion-salmeterol 250-50 mcg/dose blister with device 1 ea INHALATION BID loperamide 2 mg capsule 2 mg PO TID PRN PRN (Reason: diarrhea) furosemide 40 mg tablet 40 mg PO DAILY Patient Comments: pt states she had some, but does online rx; unclear last dose Discontinued escitalopram oxalate [Lexapro] 20 mg tablet 20 mg PO DAILY Referrals / Follow Up: Merrick White MD [Med Staff - Active Staff] - Within 2 Weeks DALI RICE NP-C [Primary Care Provider] - Within 2 Weeks Disposition Disposition (needs filled in before D/C Order can be placed): Home Health Service Charges/Coding Visit Charges Inpatient E&M: 16571 Disch Hosp 08/05/24 1300 <Electronically signed by Linwood Joe DO> Cosigner Signature (if applicable): CC: SHMUEL RICE; Dr. Linwood Joe DO~ Signed [facility] Work Phone: 1(284) 821-728106-04-2025 Discharge summary [facility] Medical Records Department [address] [place] [address] Discharge Summary 08/05/24 1252 MR#: [id number] Acct: [id number] Name: LEYDA LOPEZ Rep #:[id number] : 1960 63 From: Linwood Joe DO PCP: SHMUEL PAGAN Status:ADM IN Location: [facility] [id number] Providers Date of Admission: 07/26/24 Primary Care [...] Reason for Consult: endocarditis EMERGENT Consult: No MD Notified: Yes Date Notified: 07/31/24 Time Notified: [...] diffuse dilation of the small bowel with transitionpoint within the distal duodenum. Since resolved. (2) MRSA bacteremia: Status: Acute Code(s): R78.81 - Bacteremia; B95.62 - Methicillin resistant Staphylococcus aureus infection as the cause ofdiseases classified elsewhere Plan: No clear criteria met [...] IV vancomycin (stop date 09/11). Pt will needto have [facility] to iniate the IV abx at home, [...] diarrhea 07/26/24 vancomycin 500 mg/100 mL in dextrose 5 % intravenous piggyback 500 mg IV Q12H 38days #76 mL 08/04/24 Hospital Course Operations None Procedures PICC line placement Physical Exam Const alert and no apparent distress General Appearance: cooperative and comfortable Extremity normal to inspection and no clubbing, cyanosis or edema Weight / BMI Weight Weight: 64.6 kg Body Mass Index (BMI) 30.8 ABG / Lab / Microbiology Data 08/04/24 04:50 08/04/24 04:50 Laboratory: Laboratory Results - last 24 hr 08/04/24 21:40: Vancomycin Trough 17.2 H Microbiology: Microbiology 07/31/24 09:55 Blood Culture (Wb) - Right Hand Blood Culture - Final No growth in 5 days. 08/01/24 09:13 Blood Culture (Wb) - Left Forearm Blood Culture - Preliminary No growth in 48 hours. 07/29/24 22:30 Blood Culture (Wb) - Anticubital Left Bacteria Detection (PCR) - Final Meth. resistant Staph. aureus 07/29/24 22:30 Blood Culture (Wb) - Anticubital Left Blood Culture - Final Meth. resistant Staph. aureus 07/29/24 22:25 Blood Culture (Wb) - Right Hand Blood Culture - Final Staphylococcus aureus 07/30/24 12:50 Urine, Clean Catch Legionella Antigen - Final 07/30/24 12:50 Urine, Clean Catch Streptococcus pneumoniae Antigen (M - Final 07/30/24 12:20 Mucosa - Nasopharyngeal Respiratory Panel (PCR) - Final D/C Instructions DC O2, CPAP, BIPAP Needs Home O2 Discharge instructions: Yes Type of respiratory needs?: Oxygen (4) Oxygen frequency: Continuous Continuous oxygen liters per minute: 4 DC home with Oxygen: Yes Home O2 MD Review: I have reviewed the oxygen testing, and the patient qualifies for home oxygen equipment and portability. The patient is mobile in the home and the community. Meaningful Use Info Meaningful Use Meaningful Use Diagnoses (Choose all that apply): None applicable Ischemic Stroke Statin Dosing Therapy Reference: STATIN DOSE THERAPY REFERENCE: * Patients > 75 years receive moderate or high dose statin therapy. * Patients 75 years or YOUNGER should receive HIGH intensity statin dose unless contraindicated. You will be required to document reason for non-treatment if statin daily dose does not meet guidelines. HIGH DOSE STATIN THERAPY DAILY Atorvastatin > than or = to 40 mg Rosuvastatin > than or = to 20 mg Amlodipine + Atorvastatin > than or = to 2.5/40 mg Ezetimibe + Simvastatin 10/80 mg Simvastatin 80mg Discharge Plan Admission Admit Date/Time: 07/26/24 18:23 Primary Reason for Your Visit: SBO. bacteremia Attending Provider: Linwood Joe Primary Care Provider: DALI RICE Consulting Providers: Linwood Joe; Dolly Daniels; Sid Hillman; Sam Graves;Kalyan Bass;Merrick White Discharge Orders/Prescriptions Prescriptions: New vancomycin in dextrose 5 % 500 mg/100 mL Piggyback 500 mg IV Q12H 38 Days Qty: 76 0RF Rx Instructions: stop date 09/11/24. Weekly bmp, cbc, and vanc trough. Fax to [phone]. Routine picc care per protocol. Dx: MRSA endocarditis. Continued albuterol sulfate [ProAir HFA] 1 PUFF inhaler 2 puff inhalation Q4H PRN PRN (Reason: Sob &/Or Wheezing) nitroglycerin 0.4 MG tablet, sublingual 0.4 mg sublingual PRN PRN (Reason: CHEST PAIN) ondansetron 4 mg tablet,disintegrating 4 mg PO Q8H PRN PRN (Reason: Nausea) Qty: 14 0RF amitriptyline 100 mg tablet 150 mg PO QHS sumatriptan succinate 50 mg tablet 50 mg PO PRN PRN (Reason: migraine headache) meloxicam 7.5 mg tablet 15 mg PO DAILY Patient Comments: TAKE ONE TABLET BY MOUTH DAILY AT 9AM escitalopram oxalate 20 mg tablet 20 mg PO DAILY tizanidine 4 mg tablet 4 mg PO Q8H PRN PRN (Reason: muscle spasm) atorvastatin 40 mg tablet 40 mg PO QHS buspirone 5 mg tablet 10 mg PO TID dexlansoprazole 60 mg capsule,biphase delayed releas 60 mg PO DAILY hydroxyzine HCl 50 mg tablet 50 mg PO TID PRN (Reason: Anxiety) pregabalin 25 mg capsule 150 mg PO BID acetaminophen 325 mg Tablet 1,000 mg PO Q8H PRN PRN (Reason: fever/pain 1-10) Qty: 0 0RF lisinopril 40 mg tablet 40 mg PO DAILY potassium chloride 20 mEq Tablet,Er Particles/Crystals 20 meq PO DAILYCM Qty: 30 0RF trazodone 50 mg tablet 50 mg PO QHS albuterol sulfate 2.5 mg /3 mL (0.083 %) solution for nebulization 2.5 mg inhalation Q4H PRN PRN (Reason: wheezing) buspirone 10 mg tablet 10 mg PO TID fluticasone propion-salmeterol 250-50 mcg/dose blister with device 1 ea INHALATION BID loperamide 2 mg capsule 2 mg PO TID PRN PRN (Reason: diarrhea) furosemide 40 mg tablet 40 mg PO DAILY Patient Comments: pt states she had some, but does online rx; unclear last dose Discontinued escitalopram oxalate [Lexapro] 20 mg tablet 20 mg PO DAILY Referrals / Follow Up: Merrick White MD [Med Staff - Active Staff] - Within 2 Weeks DALI RICE NP-C [Primary Care Provider] - Within 2 Weeks Disposition Disposition (needs filled in before D/C Order can be placed): Home Health Service Charges/Coding Visit Charges Inpatient E&M: 42023 Disch Hosp 08/05/24 1300 Cosigner Signature (if applicable): CC: SHMUEL RICE; Dr. Linwood Joe DO~ Signed [facility]06-04-2025 [facility]06-04-2025 Telephone encounter Note* Telephone Encounter - Quattrocchi, Kellen, [employer] - 08/05/2024 8:20 AM EDT Barby from [facility] Home Health calling patient is currently admitted with small bowel obstruction, planning to discharge today with IV antibiotics. Dr Hurst will cover IV orders. Asking if PCP would follow and sign orders for the patient? Received orders for PT/OT. Please advise [facility]06-04-2025 Consult note Author Vitor Pichardo [facility] Note Date/Time August 04, 2024 10:51 pm [facility] Medical Records Department [address] [place] [address] Pharmacokinetic/Renal -Consult 08/04/242249 MR#: [id number] Acct: [id number] Name: LEYDA LOPEZ Rep #:[id number] : 1960 63 From: Vitor Talbert od PCP: DALI RICE, VINYL DIPPER-C Status:ADM IN Location: [place] [address] Consult Antibiotic Management Pharmacy has been consulted to manage selected antibiotic: Vancomycin Type of Intervention Type of Consult: Follow-up Labs Labs: Sodium 142 mmol/L (133-145) 08/04/24 04:50 Potassium 3.2 mmol/L (3.3-5.1) L 08/04/24 04:50 Chloride 104 mmol/L (98-108) 08/04/24 04:50 Carbon Dioxide 24.4 mmol/L (21.0-32.0) 08/04/24 04:50 Anion Gap 14 (5-15) 08/04/24 04:50 BUN 22 mg/dL (4-19) H 08/04/24 04:50 Creatinine 1.12 mg/dL (0.70-1.20) 08/04/24 04:50 Est GFR (MDRD) Non-Af 55 (>60) L 08/04/24 04:50 BUN/Creatinine Ratio 19.5 RATIO (10-20) 08/04/24 04:50 Glucose 111 mg/dL (70-99) H 08/04/24 04:50 Vancomycin Trough 17.2 ug/mL (5.0-15.0) H 08/04/24 21:40 Random Vancomycin 18.2 ug/mL (0.0-15.0) H 08/03/24 08:39 Microbiology Microbiology: Microbiology 08/01/24 09:13 Blood Culture (Wb) - Left Forearm Blood Culture - Preliminary No growth in 48 hours. 07/31/24 09:55 Blood Culture (Wb) - Right Hand Blood Culture - Preliminary No growth in 48 hours. 07/29/24 22:30 Blood Culture (Wb) - Anticubital Left Bacteria Detection (PCR) - Final Meth. resistant Staph. aureus 07/29/24 22:30 Blood Culture (Wb) - Anticubital Left Blood Culture - Final Meth. resistant Staph. aureus 07/29/24 22:25 Blood Culture (Wb) - Right Hand Blood Culture - Final Staphylococcus aureus 07/30/24 12:50 Urine, Clean Catch Legionella Antigen - Final 07/30/24 12:50 Urine, Clean Catch Streptococcus pneumoniae Antigen (M - Final 07/30/24 12:20 Mucosa - Nasopharyngeal Respiratory Panel (PCR) - Final Goal Trough Goal Trough: 15-20 mcg/mL Pharmacy Plan for Drug Dosing Pharmacy Plan for Drug Dosing: Pharmacy Service will continue to monitor and adjust dosing as required. TROUGH 17.2 @ 12.5 HOURS. NO CHANGES, FOLLOW UP TROUGH IN 2 DAYS Follow-Up Labs Follow-Up Labs: Trough: Vancomycin Date/Time Labs Ordered Labs to be done on [date and time ordered]: 08/06 @ 2130 08/04/24 9479 <Electronically signed by Vitor bergman> Date _ Vitor Pichardo Cosigner Signature (if applicable): Date CC: ~ Signed [facility] Work Phone: 1(291) 961-516606-03-2025 Consult note [facility] Medical Records Department [address] [place] [address] Pharmacokinetic/Renal -Consult 08/04/240 MR#: [id number] Acct: [id number] Name: LEYDA LOPEZ Rep #:[id number] : 1960 63 From: Vitor Talbert od PCP: DALI RICE, VINYL DIPPER-C Status:ADM IN Y Location: [place] [address] Consult Antibiotic Management Pharmacy has been consulted to manage selected antibiotic: Vancomycin Type of Intervention Type of Consult: Follow-up Labs Labs: Sodium 142 mmol/L (133-145) 08/04/24 04:50 Potassium 3.2 mmol/L (3.3-5.1) L 08/04/24 04:50 Chloride 104 mmol/L (98-108) 08/04/24 04:50 Carbon Dioxide 24.4 mmol/L (21.0-32.0) 08/04/24 04:50 Anion Gap 14 (5-15) 08/04/24 04:50 BUN 22 mg/dL (4-19) H 08/04/24 04:50 Creatinine 1.12 mg/dL (0.70-1.20) 08/04/24 04:50 Est GFR (MDRD) Non-Af 55 (>60) L 08/04/24 04:50 BUN/Creatinine Ratio 19.5 RATIO (10-20) 08/04/24 04:50 Glucose 111 mg/dL (70-99) H 08/04/24 04:50 Vancomycin Trough 17.2 ug/mL (5.0-15.0) H 08/04/24 21:40 Random Vancomycin 18.2 ug/mL (0.0-15.0) H 08/03/24 08:39 Microbiology Microbiology: Microbiology 08/01/24 09:13 Blood Culture (Wb) - Left Forearm Blood Culture - Preliminary No growth in 48 hours. 07/31/24 09:55 Blood Culture (Wb) - Right Hand Blood Culture - Preliminary No growth in 48 hours. 07/29/24 22:30 Blood Culture (Wb) - Anticubital Left Bacteria Detection (PCR) - Final Meth. resistant Staph. aureus 07/29/24 22:30 Blood Culture (Wb) - Anticubital Left Blood Culture - Final Meth. resistant Staph. aureus 07/29/24 22:25 Blood Culture (Wb) - Right Hand Blood Culture - Final Staphylococcus aureus 07/30/24 12:50 Urine, Clean Catch Legionella Antigen - Final 07/30/24 12:50 Urine, Clean Catch Streptococcus pneumoniae Antigen (M - Final 07/30/24 12:20 Mucosa - Nasopharyngeal Respiratory Panel (PCR) - Final Goal Trough Goal Trough: 15-20 mcg/mL Pharmacy Plan for Drug Dosing Pharmacy Plan for Drug Dosing: Pharmacy Service will continue to monitor and adjust dosing as required. TROUGH 17.2 @ 12.5 HOURS. NO CHANGES, FOLLOW UP TROUGH IN 2 DAYS Follow-Up Labs Follow-Up Labs: Trough: Vancomycin Date/Time Labs Ordered Labs to be done on [date and time ordered]: 08/06 @ 2130 08/04/24 2251 lood> Date _ Vitor Owens Signature (if applicable): Date CC: ~ Signed [facility]06-03-2025 Progress note Author Linwood Joe [facility] Note Date/Time August 04, 2024 1:18p [facility] Medical Records Department [address] [place] [address] Progress Note - Hospitalist 08/04/24 0816 MR#: [id number] Acct: [id number] Name: LEYDA LOPEZ Joann Rep #:[id number] : 1960 63 From: Linwood Joe DO PCP: DALI RICE VINYL DIPPERGabriella Status:ADM IN Location: [place] [address] Reason for Visit Reason for Visit: Diagnoses Sepsis, unspecified organism (07/26/24) Methicillin resistant Staphylococcus aureus infection as the cause of diseases classified elsewhere (07/26/24) Nicotine dependence, cigarettes, uncomplicated (07/26/24) Essential (primary) hypertension (07/26/24) Chronic obstructive pulmonary disease, unspecified (07/26/24) Pleural effusion, not elsewhere classified (07/26/24) Unspecified intestinal obstruction, unspecified as to partial versus complete obstruction (07/26/24) Rheumatoid arthritis, unspecified (07/26/24) Acute kidney failure, unspecified (07/26/24) Bacteremia (07/26/24) Subjective Subjective Feeling well. Tolerating diet. Denies abdominal pain. Objective Data Objective Data Vital Signs: Vital Signs Temp Pulse Resp BP Pulse Ox O2 Del Method O2 Flow Rate 36.8 C 76 20 H 151/90 H 97 Nasal Cannula 2.5 08/04/24 06:00 08/04/24 06:00 08/04/24 06:00 08/04/24 06:00 08/04/24 06:00 08/04/24 06:00 08/04/24 06:00 Oxygen Flow Rate (L/min) 2.5 Oxygen Delivery Method Nasal Cannula Weight: 64.6 kg Body Mass Index (BMI) 30.8 Intake & Output: Intake and Output for Last 24 Hours 08/02/24 08/03/24 08/04/24 23:59 23:59 23:59 Intake Total 1657.92 / 1657.92 540 / 640 200 / 200 Output Total 140 / 340 200 / 200 Balance 1657.92 / 1657.92 400 / 300 0 / 0 Lab / Micro Data 08/04/24 04:50 08/04/24 04:50 Labs: Laboratory Results - last 24 hr 08/03/24 08:39: Random Vancomycin 18.2 H 08/04/24 04:50: WBC 12.2 H, RBC 2.86 L, Hgb 8.3 L, Hct 25.5 L, MCV 89.2, MCH 29.0, MCHC 32.5, RDW Std Deviation 45.8 H, RDW Coeff of Alejandra 13.9, Plt Count 341,MPV 10.5, Immature Gran % (Auto) 1.300 H, Neut % (Auto) 78.6 H, Lymph % (Auto) 12.2 L, [place] % (Auto) 6.2, Eos % (Auto) 1.5, Baso % (Auto) 0.2, Absolute Neuts (auto) 9.6 H, Absolute Lymphs (auto) 1.48, Nucleated RBC % 0, Sodium 142, Potassium 3.2 L, Chloride 104, Carbon Dioxide 24.4, Anion Gap 14, BUN 22 H, Creatinine 1.12, Estim Creat Clear Calc 43.13 L, Est GFR (MDRD) Non-Af 55 L, BUN/Creatinine Ratio 19.5, Glucose 111 H, Calcium 8.3 Micro: Microbiology 08/01/24 09:13 Blood Culture (Wb) - Left Forearm Blood Culture - Preliminary No growth in 48 hours. 07/31/24 09:55 Blood Culture (Wb) - Right Hand Blood Culture - Preliminary No growth in 48 hours. 07/29/24 22:30 Blood Culture (Wb) - Anticubital Left Bacteria Detection (PCR) - Final Meth. resistant Staph. aureus 07/29/24 22:30 Blood Culture (Wb) - Anticubital Left Blood Culture - Final Meth. resistant Staph. aureus 07/29/24 22:25 Blood Culture (Wb) - Right Hand Blood Culture - Final Staphylococcus aureus 07/30/24 12:50 Urine, Clean Catch Legionella Antigen - Final 07/30/24 12:50 Urine, Clean Catch Streptococcus pneumoniae Antigen (M - Final 07/30/24 12:20 Mucosa - Nasopharyngeal Respiratory Panel (PCR) - Final Radiography Diagnostic Testing: Radiology Impression Venous Doppler Study 08/01/24 09:53 Interpretation Summary Deep veins of the upper [...] Rice Performed By: Evelin Perez RVT ??? Physical Exam Const Constitutional Narrative: sleeping. easily awakes. HEENT head/scalp atraumatic and moist oral mucous membranes Resp normal respiratory effort and no retractions GI non-tender and non-distended Neuro Sensorium / Orientation: awake and alert Psych affect normal Assessment & Plan Assessment/Plan (1) Small bowel obstruction: PLAN: Symptoms began around the . CAT scan showed diffuse dilation of the small bowel with transition point within the distal duodenum. Since resolved. (2) MRSA bacteremia: PLAN: No clear criteria met for sepsis. Pt declined JENNIFER. TTE showed what was previously thought to be a vegetation, but cardiology feels that it is an enlarged papillar muscle and LV. No vegetation seen. No spinal lesions on CT lumbar and thoracic spines. BCx negative on thus far Pt to be discharged with 6 weeks of IV vancomycin (stop date 09/11). Pt will needto have [facility] to iniate the IV abx at home, but this cannot be arranged until 08/05 (3) Pleural effusion: PLAN: noted on CT. Appears rather small. Would recommend holding off on thoracentesis at this time as I feel the risks outweigh the benefits at this time. However, would still reimage in 4-6 weeks to see if changed. If worse, then would consider thoracentesis at that time. PLAN: Plan Chronic conditions * Heart failure: [...] full code. Charges/Coding Visit Charges Inpatient E&M: 70075 Subs Hosp L1 08/04/24 1318 <Electronically signed by Linwood Joe DO> Cosigner Signature (if applicable): CC: ~ Signed [facility] Work Phone: 1(594) 343-359406-03-2025 Progress note [facility] Medical Records Department [address] [place] [address] Progress Note - Hospitalist 08/04/24 0816 MR#: [id number] Acct: [id number] Name: LEYDA LOPEZ Rep #:[id number] : 1960 63 From: Linwood Joe DO PCP: DALI RICE, VINYL DIPPER-C Status:ADM IN Location: [place] [address] Reason for Visit Reason for Visit: Diagnoses Sepsis, unspecified organism (07/26/24) Methicillin resistant Staphylococcus aureus infection as the cause of diseases classified elsewhere(07/26/24) Nicotine dependence, cigarettes, uncomplicated (07/26/24) Essential (primary) hypertension (07/26/24) Chronic obstructive pulmonary disease, unspecified (07/26/24) Pleural effusion, not elsewhere classified (07/26/24) Unspecified intestinal obstruction, unspecified as to partial versus complete obstruction (07/26/24) Rheumatoid arthritis, unspecified (07/26/24) Acute kidney failure, unspecified (07/26/24) Bacteremia (07/26/24) Subjective Subjective Feeling well. Tolerating diet. Denies abdominal pain. Objective Data Objective Data Vital Signs: Vital Signs Temp Pulse Resp BP Pulse Ox O2 Del Method O2 Flow Rate 36.8 C 76 20 H 151/90 H 97 Nasal Cannula 2.5 08/04/24 06:00 08/04/24 06:00 08/04/24 06:00 08/04/24 06:00 08/04/24 06:00 08/04/24 06:00 08/04/24 06:00 Oxygen Flow Rate (L/min) 2.5 Oxygen Delivery Method Nasal Cannula Weight: 64.6 kg Body Mass Index (BMI) 30.8 Intake & Output: Intake and Output for Last 24 Hours 08/02/24 08/03/24 08/04/24 23:59 23:59 23:59 Intake Total 1657.92 / 1657.92 540 / 640 200 / 200 Output Total 140 / 340 200 / 200 Balance 1657.92 / 1657.92 400 / 300 0 / 0 Lab / Micro Data 08/04/24 04:50 08/04/24 04:50 Labs: Laboratory Results - last 24 hr 08/03/24 08:39: Random Vancomycin 18.2 H 08/04/24 04:50: WBC 12.2 H, RBC 2.86 L, Hgb 8.3 L, Hct 25.5 L, MCV 89.2, MCH 29.0, MCHC 32.5, RDW Std Deviation 45.8 H, RDW Coeff of Alejandra 13.9, Plt Count 341,MPV 10.5, Immature Gran % (Auto) 1.300 H, Neut % (Auto) 78.6 H, Lymph % (Auto) 12.2 L, [place] % (Auto) 6.2, Eos % (Auto) 1.5, Baso % (Auto) 0.2,Absolute Neuts (auto) 9.6 H, Absolute Lymphs (auto) 1.48, Nucleated RBC % 0, Sodium 142, Potassium 3.2 L, Chloride 104, Carbon Dioxide 24.4, Anion Gap 14, BUN 22 H, Creatinine 1.12, Estim Creat ClearCalc 43.13 L, Est GFR (MDRD) Non-Af 55 L, BUN/Creatinine Ratio 19.5, Glucose 111 H, Calcium 8.3 Micro: Microbiology 08/01/24 09:13 Blood Culture (Wb) - Left Forearm Blood Culture - Preliminary No growth in 48 hours. 07/31/24 09:55 Blood Culture (Wb) - Right Hand Blood Culture - Preliminary No growth in 48 hours. 07/29/24 22:30 Blood Culture (Wb) - Anticubital Left Bacteria Detection (PCR) - Final Meth. resistant Staph. aureus 07/29/24 22:30 Blood Culture (Wb) - Anticubital Left Blood Culture - Final Meth. resistant Staph. aureus 07/29/24 22:25 Blood Culture (Wb) - Right Hand Blood Culture - Final Staphylococcus aureus 07/30/24 12:50 Urine, Clean Catch Legionella Antigen - Final 07/30/24 12:50 Urine, Clean Catch Streptococcus pneumoniae Antigen (M - Final 07/30/24 12:20 Mucosa - Nasopharyngeal Respiratory Panel (PCR) - Final Radiography Diagnostic Testing: Radiology Impression Venous Doppler Study 08/01/24 09:53 Interpretation Summary Deep veins of the upper [...] Rice Performed By: Evelin Perez RVT ??? Physical Exam Const Constitutional Narrative: sleeping. easily awakes. HEENT head/scalp atraumatic and moist oral mucous membranes Resp normal respiratory effort and no retractions GI non-tender and non-distended Neuro Sensorium / Orientation: awake and alert Psych affect normal Assessment & Plan Assessment/Plan (1) Small bowel obstruction: PLAN: Symptoms began around the . CAT scan showed diffuse dilation of the small bowel with transition point within the distal duodenum. Since resolved. (2) MRSA bacteremia: PLAN: No clear criteria met for sepsis. Pt declined JENNIFER. TTE showed what was previously thought to be a vegetation, but cardiology feels that it is an enlarged papillar muscle and LV. No vegetation seen. No spinal lesions on CT lumbar and thoracic spines. BCx negative on thus far Pt to be discharged with 6 weeks of IV vancomycin (stop date 09/11). Pt will needto have [facility] to iniate the IV abx at home, but this cannot be arranged until 08/05 (3) Pleural effusion: PLAN: noted on CT. Appears rather small. Would recommend holding off on thoracentesis at this time as I feel the risks outweigh the benefits at this time. However, would still reimage in 4-6 weeks tosee if changed. If worse, then would consider thoracentesis at that time. PLAN: Plan Chronic conditions * Heart failure: [...] full code. Charges/Coding Visit Charges Inpatient E&M: 95209 Subs Hosp L1 08/04/24 1318 Cosigner Signature (if applicable): CC: ~ Signed [facility]06-03-2025 Progress note Author Merrick White [facility] Note Date/Time August 04, 2024 9:48a m [facility] Medical Records Department [address] [place] [address] Progress Note - Infect Disease 08/04/24 0947 MR#: [id number] Acct: [id number] Name: LEYDA LOPEZ Rep #:[id number] : 1960 63 From: Merrick gunn MD PCP: DALI RICE, VINYL DIPPER-C Status:ADM IN Location: [place] [address] Physical Exam Narrative Feeling ok, wants to go home, no fever, no n/v/d. Const alert and no apparent distress General Appearance: cooperative Resp normal air movement and clear to auscultation bilaterally Cardio regular rate and regular rhythm GI soft to palpation, non-tender and non-distended Skin no rashes or lesions noted ID ID: Route of nutrition/ use of supplements: [] Nutritional Intake: [] IV Site: [] Byrne Catheter: [] Assessment & Plan Assessment/Plan (1) MRSA bacteremia: (2) Small bowel obstruction: (3) Rheumatoid arthritis: (4) Sepsis: PLAN: sepsis with JOSE, MRSA bacteremia, and h/o COPD. Suspect pulmonary source given past sputum (+) for MRSA. Concern for endocarditis with LV mass seen on TTE; pt again refuses to JENNIFER. CT with moderate R effusion, may need thoracentesis to help with source control. Will cont vanc. Will order picc and 6 weeks iv vanc, stop date 09/11/24 with weekly labs, ID followup in 2 weeks. Will follow, d/w pillowcase folder (5) JOSE (acute kidney injury): 08/04/24 0948 <Electronically signed by Merrick White MD> Cosigner Signature (if applicable): CC: ~ Signed [facility] Work Phone: 1(745) 326-563406-03-2025 Progress note [facility] Medical Records Department [address] [place] [address] Progress Note - Infect Disease 08/04/24 0947 MR#: [id number] Acct: [id number] Name: LEYDA LOPEZ Rep #:[id number] : 1960 63 From: Merrick gunn MD PCP: DALI RICE VINYL DIPPER-C Status:ADM IN Location: [place] [address] Physical Exam Narrative Feeling ok, wants to go home, no fever, no n/v/d. Const alert and no apparent distress General Appearance: cooperative Resp normal air movement and clear to auscultation bilaterally Cardio regular rate and regular rhythm GI soft to palpation, non-tender and non-distended Skin no rashes or lesions noted ID ID: Route of nutrition/ use of supplements: [] Nutritional Intake: [] IV Site: [] Byrne Catheter: [] Assessment & Plan Assessment/Plan (1) MRSA bacteremia: (2) Small bowel obstruction: (3) Rheumatoid arthritis: (4) Sepsis: PLAN: sepsis with JOSE, MRSA bacteremia, and h/o COPD. Suspect pulmonary source given past sputum (+) for MRSA. Concern for endocarditis with LV mass seen on TTE; pt again refuses to JENNIFER. CT with moderate R effusion, may need thoracentesis to help with source control. Will cont vanc. Will order piccand 6 weeks iv vanc, stop date 09/11/24 with weekly labs, ID followup in 2 weeks. Will follow, d/w pillowcase folder (5) JOSE (acute kidney injury): 08/04/24 0948 Cosigner Signature (if applicable): CC: ~ Signed [facility]06-02-2025 Consult note Author Veronika Yen [facility] Note Date/Time August 03, 2024 4:40p m [facility] Medical Records Department [address] [place] [address] Pharmacokinetic/Renal -Consult 08/01/24 0238 MR#: [id number] Acct: [id number] Name: LEYDA LOPEZ Rep #:[id number] : 1960 63 From: Veronika Yen PCP: DALI RICE, VINYL DIPPER-C Status:ADM IN Y Location: [facility] [id number] Consult Antibiotic Management Pharmacy has been consulted to manage selected antibiotic: Vancomycin Type of Intervention Type of Consult: Follow-up Suspected Infection Suspected Infection: Bacteremia Labs Labs: Vancomycin Trough 17.5 ug/mL (5.0-15.0) H 08/01/24 01:50 Microbiology Microbiology: Microbiology 07/29/24 22:25 Blood Culture (Wb) - Right Hand Blood Culture - Final Staphylococcus aureus 07/29/24 22:30 Blood Culture (Wb) - Anticubital Left Bacteria Detection (PCR) - Final Meth. resistant Staph. aureus 07/29/24 22:30 Blood Culture (Wb) - Anticubital Left Blood Culture - Preliminary Meth. resistant Staph. aureus 07/30/24 12:50 Urine, Clean Catch Legionella Antigen - Final 07/30/24 12:50 Urine, Clean Catch Streptococcus pneumoniae Antigen (M - Final 07/30/24 12:20 Mucosa - Nasopharyngeal Respiratory Panel (PCR) - Final Pharmacy Plan for Drug Dosing Pharmacy Plan for Drug Dosing: VANCOMYCIN LEVEL RECEIVED Current Vancomycin Dose: 750MG Q12 Number of Doses Received: 3 Vancomycin Level: 17.5 mg/dL Hours Since Last Dose: 12 Renal Function: SCr 1.08 mg/dL, CrCl 45mL/min Renal Function Trend: stable Lab/Micro: mrsa bacteremia Vancomycin Plan/Comments: 12 hour trough is therapeutic at 17.5mg/dL (goal 15- 20). Will continue current dosing and get a level in 2 days. Pending Level: 08/03/24 @ 0200 Pharmacy Service will continue to monitor and adjust dosing as required. 08/01/24 0238 <Electronically signed by Veronika Yen> Date _ Veronika Yen 08/03/24 1640 <Electronically signed by Dolly ricketts MD> Cosigner Signature (if applicable): Date Dolly Daniels MD CC: ~ Signed [facility] Work Phone: 1(145) 577-461106-02-2025 Progress note Author Linwood Joe [facility] Note Date/Time August 03, 2024 2:41p m [facility] Medical Records Department [address] [place] [address] Progress Note - Hospitalist 08/03/24905 MR#: [id number] Acct: [id number] Name: LEYDA LOPEZ Rep #:[id number] : 1960 63 From: Linwood Joe DO PCP: DALI RICE, VINYL DIPPER-C Status:ADM IN Location: [place] [address] Reason for Visit Reason for Visit: Diagnoses Sepsis, unspecified organism (07/26/24) Methicillin resistant Staphylococcus aureus infection as the cause of diseases classified elsewhere (07/26/24) Nicotine dependence, cigarettes, uncomplicated (07/26/24) Essential (primary) hypertension (07/26/24) Chronic obstructive pulmonary disease, unspecified (07/26/24) Unspecified intestinal obstruction, unspecified as to partial versus complete obstruction (07/26/24) Rheumatoid arthritis, unspecified (07/26/24) Acute kidney failure, unspecified (07/26/24) Bacteremia (07/26/24) Subjective Subjective Feeling well. Tolerating PO. Objective Data Objective Data Vital Signs: Vital Signs Temp Pulse Resp BP Pulse Ox O2 Del Method O2 Flow Rate 36.5 C L 87 18 158/94 H 96 Nasal Cannula 3 08/03/24 03:00 08/03/24 03:00 08/03/24 03:00 08/03/24 03:00 08/03/24 03:00 08/03/24 03:00 08/03/24 03:00 Oxygen Flow Rate (L/min) 3 Oxygen Delivery Method Nasal Cannula Weight: 64.6 kg Body Mass Index (BMI) 30.8 Intake & Output: Intake and Output for Last 24 Hours 08/01/24 08/02/24 08/03/24 23:59 23:59 23:59 Intake Total 3195.83 / 3195.83 1657.92 / 1657.92 50 / 50 Output Total 1000 / 1000 Balance 2195.83 / 2195.83 1657.92 / 1657.92 50 / 50 Lab / Micro Data 08/03/24 03:57 08/03/24 03:57 Labs: Laboratory Results - last 24 hr 08/03/24 01:54: Vancomycin Trough 20.5 H 08/03/24 03:57: WBC 9.7, RBC 2.55 L, Hgb 7.4 L, Hct 22.9 L, MCV 89.8, MCH 29.0, MCHC 32.3, RDW Std Deviation 46.9 H, RDW Coeff of Alejandra 14.3, Plt Count 250, MPV 10.5, Immature Gran % (Auto) 0.900, Neut % (Auto) 78.6 H, Lymph % (Auto) 13.4 L,[place] % (Auto) 7.0, Eos % (Auto) 0.1, Baso % (Auto) 0.0, Absolute Neuts (auto) 7.7, Absolute Lymphs (auto) 1.30, Nucleated RBC % 0.2, Sodium 141, Potassium 3.8, Chloride 108, Carbon Dioxide 22.6, Anion Gap 10, BUN 26 H, Creatinine 1.20,Estim Creat Clear Calc 40.25 L, Est GFR (MDRD) Non-Af 51 L, BUN/Creatinine Ratio21.5 H, Glucose 143 H, Calcium 8.3 Micro: Microbiology 07/31/24 09:55 Blood Culture (Wb) - Right Hand Blood Culture - Preliminary No growth in 48 hours. 07/29/24 22:30 Blood Culture (Wb) - Anticubital Left Bacteria Detection (PCR) - Final Meth. resistant Staph. aureus 07/29/24 22:30 Blood Culture (Wb) - Anticubital Left Blood Culture - Final Meth. resistant Staph. aureus 07/29/24 22:25 Blood Culture (Wb) - Right Hand Blood Culture - Final Staphylococcus aureus 07/30/24 12:50 Urine, Clean Catch Legionella Antigen - Final 07/30/24 12:50 Urine, Clean Catch Streptococcus pneumoniae Antigen (M - Final 07/30/24 12:20 Mucosa - Nasopharyngeal Respiratory Panel (PCR) - Final Physical Exam Const alert and no apparent distress Constitutional Narrative: up at the side of bed eating lunch. HEENT head/scalp atraumatic and moist oral mucous membranes Resp normal respiratory effort, no retractions, no use of accessory muscles and clearto auscultation bilaterally Cardio regular rate, regular rhythm, S1 normal heart sound and S2 normal heart sound GI normal to inspection, nondistended, normoactive bowel sounds, soft to palpation,non-tender and non-distended Neuro Sensorium / Orientation: awake, alert, oriented to person, oriented to place andoriented to time Psych affect normal Assessment & Plan Assessment/Plan (1) Small bowel obstruction: PLAN: Symptoms began around the . CAT scan showed diffuse dilation of the small bowel with transition point within the distal duodenum. Since resolved. (2) MRSA bacteremia: PLAN: No clear criteria met for sepsis. Pt declined JENNIFER. TTE showed what was previously thought to be a vegetation, but cardiology feels that it is an enlarged papillar muscle and LV. No vegetation seen. No spinal lesions on CT lumbar and thoracic spines. BCx negative on thus far (3) Pleural effusion: PLAN: noted on CT. Appears rather small. Would recommend holding off on thoracentesis at this time as I feel the risks outweigh the benefits at this time. However, would still reimage in 4-6 weeks to see if changed. If worse, then would consider thoracentesis at that time. PLAN: Plan Chronic conditions * Heart failure: [...] full code. Charges/Coding Visit Charges Inpatient E&M: 52811 Subs Hosp L2 08/03/24 1441 <Electronically signed by Linwood Joe DO> Cosigner Signature (if applicable): CC: ~ Signed [facility] Work Phone: 1(269) 427-817806-02-2025 Consult note [facility] Medical Records Department [address] [place] [address] Pharmacokinetic/Renal -Consult 08/01/248 MR#: [id number] Acct: [id number] Name: LEYDA LOPEZ Rep #:[id number] : 1960 63 From: Veronika Yen PCP: DALI RICE, VINYL DIPPER-C Status:ADM IN Y Location: [place] [address] Consult Antibiotic Management Pharmacy has been consulted to manage selected antibiotic: Vancomycin Type of Intervention Type of Consult: Follow-up Suspected Infection Suspected Infection: Bacteremia Labs Labs: Vancomycin Trough 17.5 ug/mL (5.0-15.0) H 08/01/24 01:50 Microbiology Microbiology: Microbiology 07/29/24 22:25 Blood Culture (Wb) - Right Hand Blood Culture - Final Staphylococcus aureus 07/29/24 22:30 Blood Culture (Wb) - Anticubital Left Bacteria Detection (PCR) - Final Meth. resistant Staph. aureus 07/29/24 22:30 Blood Culture (Wb) - Anticubital Left Blood Culture - Preliminary Meth. resistant Staph. aureus 07/30/24 12:50 Urine, Clean Catch Legionella Antigen - Final 07/30/24 12:50 Urine, Clean Catch Streptococcus pneumoniae Antigen (M - Final 07/30/24 12:20 Mucosa - Nasopharyngeal Respiratory Panel (PCR) - Final Pharmacy Plan for Drug Dosing Pharmacy Plan for Drug Dosing: VANCOMYCIN LEVEL RECEIVED Current Vancomycin Dose: 750MG Q12 Number of Doses Received: 3 Vancomycin Level: 17.5 mg/dL Hours Since Last Dose: 12 Renal Function: SCr 1.08 mg/dL, CrCl 45mL/min Renal Function Trend: stable Lab/Micro: mrsa bacteremia Vancomycin Plan/Comments: 12 hour trough is therapeutic at 17.5mg/dL (goal 15- 20). Will continue current dosing and get a level in 2 days. Pending Level: 08/03/24 @ 0200 Pharmacy Service will continue to monitor and adjust dosing as required. 08/01/24 0238 Date _ Veronika Yen 08/03/24 1640 jamarcus COOK> Roman Signature (if applicable): Date Dolly Daniels MD CC: ~ Signed [facility]06-02-2025 Progress note [facility] Medical Records Department [address] [place] [address] Progress Note - Hospitalist 08/03/24 0906 MR#: [id number] Acct: [id number] Name: LEYDA LOPEZ Rep #:[id number] : 1960 63 From: Linwood Joe DO PCP: DALI RICE, VINYL DIPPER-C Status:ADM IN Location: [place] [address] Reason for Visit Reason for Visit: Diagnoses Sepsis, unspecified organism (07/26/24) Methicillin resistant Staphylococcus aureus infection as the cause of diseases classified elsewhere(07/26/24) Nicotine dependence, cigarettes, uncomplicated (07/26/24) Essential (primary) hypertension (07/26/24) Chronic obstructive pulmonary disease, unspecified (07/26/24) Unspecified intestinal obstruction, unspecified as to partial versus complete obstruction (07/26/24) Rheumatoid arthritis, unspecified (07/26/24) Acute kidney failure, unspecified (07/26/24) Bacteremia (07/26/24) Subjective Subjective Feeling well. Tolerating PO. Objective Data Objective Data Vital Signs: Vital Signs Temp Pulse Resp BP Pulse Ox O2 Del Method O2 Flow Rate 36.5 C L 87 18 158/94 H 96 Nasal Cannula 3 08/03/24 03:00 08/03/24 03:00 08/03/24 03:00 08/03/24 03:00 08/03/24 03:00 08/03/24 03:00 08/03/24 03:00 Oxygen Flow Rate (L/min) 3 Oxygen Delivery Method Nasal Cannula Weight: 64.6 kg Body Mass Index (BMI) 30.8 Intake & Output: Intake and Output for Last 24 Hours 08/01/24 08/02/24 08/03/24 23:59 23:59 23:59 Intake Total 3195.83 / 3195.83 1657.92 / 1657.92 50 / 50 Output Total 1000 / 1000 Balance 2195.83 / 2195.83 1657.92 / 1657.92 50 / 50 Lab / Micro Data 08/03/24 03:57 08/03/24 03:57 Labs: Laboratory Results - last 24 hr 08/03/24 01:54: Vancomycin Trough 20.5 H 08/03/24 03:57: WBC 9.7, RBC 2.55 L, Hgb 7.4 L, Hct 22.9 L, MCV 89.8, MCH 29.0, MCHC 32.3, RDW Std Deviation 46.9 H, RDW Coeff of Alejandra 14.3, Plt Count 250, MPV 10.5, Immature Gran % (Auto) 0.900, Neut% (Auto) 78.6 H, Lymph % (Auto) 13.4 L,[place] % (Auto) 7.0, Eos % (Auto) 0.1, Baso % (Auto) 0.0, Absolute Neuts (auto) 7.7, Absolute Lymphs (auto) 1.30, Nucleated RBC % 0.2, Sodium 141, Potassium 3.8, Chloride 108, Carbon Dioxide 22.6, Anion Gap 10, BUN 26 H, Creatinine 1.20,Estim Creat Clear Calc 40.25 L, Est GFR (MDRD) Non-Af 51 L, BUN/Creatinine Ratio21.5 H, Glucose 143 H, Calcium 8.3 Micro: Microbiology 07/31/24 09:55 Blood Culture (Wb) - Right Hand Blood Culture - Preliminary No growth in 48 hours. 07/29/24 22:30 Blood Culture (Wb) - Anticubital Left Bacteria Detection (PCR) - Final Meth. resistant Staph. aureus 07/29/24 22:30 Blood Culture (Wb) - Anticubital Left Blood Culture - Final Meth. resistant Staph. aureus 07/29/24 22:25 Blood Culture (Wb) - Right Hand Blood Culture - Final Staphylococcus aureus 07/30/24 12:50 Urine, Clean Catch Legionella Antigen - Final 07/30/24 12:50 Urine, Clean Catch Streptococcus pneumoniae Antigen (M - Final 07/30/24 12:20 Mucosa - Nasopharyngeal Respiratory Panel (PCR) - Final Physical Exam Const alert and no apparent distress Constitutional Narrative: up at the side of bed eating lunch. HEENT head/scalp atraumatic and moist oral mucous membranes Resp normal respiratory effort, no retractions, no use of accessory muscles and clearto auscultation bilaterally Cardio regular rate, regular rhythm, S1 normal heart sound and S2 normal heart sound GI normal to inspection, nondistended, normoactive bowel sounds, soft to palpation,non-tender and non-distended Neuro Sensorium / Orientation: awake, alert, oriented to person, oriented to place andoriented to time Psych affect normal Assessment & Plan Assessment/Plan (1) Small bowel obstruction: PLAN: Symptoms began around the . CAT scan showed diffuse dilation of the small bowel with transition point within the distal duodenum. Since resolved. (2) MRSA bacteremia: PLAN: No clear criteria met for sepsis. Pt declined JENNIFER. TTE showed what was previously thought to be a vegetation, but cardiology feels that it is an enlarged papillar muscle and LV. No vegetation seen. No spinal lesions on CT lumbar and thoracic spines. BCx negative on thus far (3) Pleural effusion: PLAN: noted on CT. Appears rather small. Would recommend holding off on thoracentesis at this time as I feel the risks outweigh the benefits at this time. However, would still reimage in 4-6 weeks tosee if changed. If worse, then would consider thoracentesis at that time. PLAN: Plan Chronic conditions * Heart failure: [...] full code. Charges/Coding Visit Charges Inpatient E&M: 49884 Subs Hosp L2 08/03/24 1441 Cosigner Signature (if applicable): CC: ~ Signed [facility]06-02-2025 Consult note Author Shelby Kerr [facility] Note Date/Time August 03, 2024 9:53a m [facility] Medical Records Department [address] [place] [address] Pharmacokinetic/Renal -Consult 08/03/24 0953 MR#: [id number] Acct: [id number] Name: LEYDA LOPEZ Joann Rep #:[id number] : 1960 63 From: Shelby Kerr PCP: DALI RICE, VINYL DIPPER-C Status:ADM IN Y Location: [place] [address] Consult Antibiotic Management Pharmacy has been consulted to manage selected antibiotic: Vancomycin Type of Intervention Type of Consult: Follow-up Labs Labs: Sodium 141 mmol/L (133-145) 08/03/24 03:57 Potassium 3.8 mmol/L (3.3-5.1) 08/03/24 03:57 Chloride 108 mmol/L (98-108) 08/03/24 03:57 Carbon Dioxide 22.6 mmol/L (21.0-32.0) 08/03/24 03:57 Anion Gap 10 (5-15) 08/03/24 03:57 BUN 26 mg/dL (4-19) H 08/03/24 03:57 Creatinine 1.20 mg/dL (0.70-1.20) 08/03/24 03:57 Est GFR (MDRD) Non-Af 51 (>60) L 08/03/24 03:57 BUN/Creatinine Ratio 21.5 RATIO (10-20) H 08/03/24 03:57 Glucose 143 mg/dL (70-99) H 08/03/24 03:57 Vancomycin Trough 20.5 ug/mL (5.0-15.0) H 08/03/24 01:54 Random Vancomycin 18.2 ug/mL (0.0-15.0) H 08/03/24 08:39 Microbiology Microbiology: Microbiology 08/01/24 09:13 Blood Culture (Wb) - Left Forearm Blood Culture - Preliminary No growth in 48 hours. 07/31/24 09:55 Blood Culture (Wb) - Right Hand Blood Culture - Preliminary No growth in 48 hours. 07/29/24 22:30 Blood Culture (Wb) - Anticubital Left Bacteria Detection (PCR) - Final Meth. resistant Staph. aureus 07/29/24 22:30 Blood Culture (Wb) - Anticubital Left Blood Culture - Final Meth. resistant Staph. aureus 07/29/24 22:25 Blood Culture (Wb) - Right Hand Blood Culture - Final Staphylococcus aureus 07/30/24 12:50 Urine, Clean Catch Legionella Antigen - Final 07/30/24 12:50 Urine, Clean Catch Streptococcus pneumoniae Antigen (M - Final 07/30/24 12:20 Mucosa - Nasopharyngeal Respiratory Panel (PCR) - Final Goal Trough Goal Trough: 15-20 mcg/mL Pharmacy Plan for Drug Dosing Pharmacy Plan for Drug Dosing: VANCOMYCIN LEVEL RECEIVED Current Vancomycin Dose: ON HOLD- last trough elevated Number of Doses Received: on hold Vancomycin Level: 18.2 Hours Since Last Dose: 19hr Renal Function: 1.2 Renal Function Trend: stable Lab/Micro: MRSA in blood cultures Vancomycin Plan/Comments: Patient had a random trough drawn which resulted in a value of 18.2 (goal 15-20). The patient's trough is now within therapeutic range. Will resume vancomycin at 500mg IV Q12hr to start 08/03/24 @1000. Pending Level: 08/04/24 @2130, prior to 4th dose of new regimen per protocol Pharmacy Service will continue to monitor and adjust dosing as required. 08/03/24952 <Electronically signed by Shelby Kerr > Date _ Shelby Kerr Cosigner Signature (if applicable): Date CC: ~ Signed [facility] Work Phone: 1(194) 749-186406-02-2025 Progress note Author Merrick Brunerninger [facility] Note Date/Time August 03, 2024 9:24a [facility] Medical Records Department [address] [place] [address] Progress Note - Infect Disease 08/03/24921 MR#: [id number] Acct: [id number] Name: LEYDA LOPEZ Rep #:[id number] : 1960 63 From: Merrick gunn MD PCP: DALI RICE, VINYL DIPPER-C Status:ADM IN Location: [place] [address] Physical Exam Narrative Feeling a little better, no fever overnight. No n/v/d. Reports chronic upper back pain. Const alert and no apparent distress Resp Auscultation: diminished lung sounds Cardio regular rate and regular rhythm GI soft to palpation, non-tender and non-distended Skin no rashes or lesions noted ID ID: Route of nutrition/ use of supplements: [] Nutritional Intake: [] IV Site: [] Byrne Catheter: [] Assessment & Plan Assessment/Plan (1) MRSA bacteremia: (2) Small bowel obstruction: (3) Rheumatoid arthritis: (4) Sepsis: PLAN: sepsis with JOSE, MRSA bacteremia per pcr, and h/o COPD. Suspect pulmonary source given past sputum (+) for MRSA. Concern for endocarditis with LV mass seen on TTE; pt now agrees to JENNIFER. CT with moderate R effusion, may need thoracentesis to help with source control. Will stop zosyn, cont vanc. Will follow (5) JOSE (acute kidney injury): 08/03/24923 <Electronically signed by Merrick White MD> Cosigner Signature (if applicable): CC: ~ Signed [facility] Work Phone: 1(679) 776-982306-02-2025 Consult note [facility] Medical Records Department [address] [place] [address] Pharmacokinetic/Renal -Consult 08/03/24 0953 MR#: [id number] Acct: [id number] Name: LEYDA LOPEZ Joann Rep #:[id number] : 1960 63 From: Shelby Kerr PCP: DALI RICE, VINYL DIPPER-C Status:ADM IN Y Location: [place] [address] Consult Antibiotic Management Pharmacy has been consulted to manage selected antibiotic: Vancomycin Type of Intervention Type of Consult: Follow-up Labs Labs: Sodium 141 mmol/L (133-145) 08/03/24 03:57 Potassium 3.8 mmol/L (3.3-5.1) 08/03/24 03:57 Chloride 108 mmol/L (98-108) 08/03/24 03:57 Carbon Dioxide 22.6 mmol/L (21.0-32.0) 08/03/24 03:57 Anion Gap 10 (5-15) 08/03/24 03:57 BUN 26 mg/dL (4-19) H 08/03/24 03:57 Creatinine 1.20 mg/dL (0.70-1.20) 08/03/24 03:57 Est GFR (MDRD) Non-Af 51 (>60) L 08/03/24 03:57 BUN/Creatinine Ratio 21.5 RATIO (10-20) H 08/03/24 03:57 Glucose 143 mg/dL (70-99) H 08/03/24 03:57 Vancomycin Trough 20.5 ug/mL (5.0-15.0) H 08/03/24 01:54 Random Vancomycin 18.2 ug/mL (0.0-15.0) H 08/03/24 08:39 Microbiology Microbiology: Microbiology 08/01/24 09:13 Blood Culture (Wb) - Left Forearm Blood Culture - Preliminary No growth in 48 hours. 07/31/24 09:55 Blood Culture (Wb) - Right Hand Blood Culture - Preliminary No growth in 48 hours. 07/29/24 22:30 Blood Culture (Wb) - Anticubital Left Bacteria Detection (PCR) - Final Meth. resistant Staph. aureus 07/29/24 22:30 Blood Culture (Wb) - Anticubital Left Blood Culture - Final Meth. resistant Staph. aureus 07/29/24 22:25 Blood Culture (Wb) - Right Hand Blood Culture - Final Staphylococcus aureus 07/30/24 12:50 Urine, Clean Catch Legionella Antigen - Final 07/30/24 12:50 Urine, Clean Catch Streptococcus pneumoniae Antigen (M - Final 07/30/24 12:20 Mucosa - Nasopharyngeal Respiratory Panel (PCR) - Final Goal Trough Goal Trough: 15-20 mcg/mL Pharmacy Plan for Drug Dosing Pharmacy Plan for Drug Dosing: VANCOMYCIN LEVEL RECEIVED Current Vancomycin Dose: ON HOLD- last trough elevated Number of Doses Received: on hold Vancomycin Level: 18.2 Hours Since Last Dose: 19hr Renal Function: 1.2 Renal Function Trend: stable Lab/Micro: MRSA in blood cultures Vancomycin Plan/Comments: Patient had a random trough drawn which resulted in a value of 18.2 ([id number]). The patient's trough is now within therapeutic range. Will resume vancomycin at 500mg IV Q12hr to start 08/03/24 @1000. Pending Level: 08/04/24 @2130, prior to 4th dose of new regimen per protocol Pharmacy Service will continue to monitor and adjust dosing as required. 08/03/24 0953 > Date _ Shelby Regula Cosigner Signature (if applicable): Date CC: ~ Signed [facility]06-02-2025 Progress note [facility] Medical Records Department [address] [place] [address] Progress Note - Infect Disease 08/03/24 0922 MR#: [id number] Acct: [id number] Name: LEYDA LOPEZ Rep #:[id number] : 1960 63 From: Merrick gunn MD PCP: DALI RICE, VINYL DIPPER-C Status:ADM IN Location: [place] [address] Physical Exam Narrative Feeling a little better, no fever overnight. No n/v/d. Reports chronic upper back pain. Const alert and no apparent distress Resp Auscultation: diminished lung sounds Cardio regular rate and regular rhythm GI soft to palpation, non-tender and non-distended Skin no rashes or lesions noted ID ID: Route of nutrition/ use of supplements: [] Nutritional Intake: [] IV Site: [] Byrne Catheter: [] Assessment & Plan Assessment/Plan (1) MRSA bacteremia: (2) Small bowel obstruction: (3) Rheumatoid arthritis: (4) Sepsis: PLAN: sepsis with JOSE, MRSA bacteremia per pcr, and h/o COPD. Suspect pulmonary source given past sputum (+) for MRSA. Concern for endocarditis with LV mass seen on TTE; pt now agrees to JENNIFER. CT withmoderate R effusion, may need thoracentesis to help with source control. Will stop zosyn, cont vanc. Will follow (5) JOSE (acute kidney injury): 08/03/24923 Cosigner Signature (if applicable): CC: ~ Signed [facility]06-02-2025 Consult note Author Vitor Pichardo [facility] Note Date/Time August 03, 2024 2:59a m [facility] Medical Records Department [address] [place] [address] Pharmacokinetic/Renal -Consult 08/03/24 0258 MR#: [id number] Acct: [id number] Name: LEYDA LOPEZ Rep #:[id number] : 1960 63 From: Vitor Talbert od PCP: DALI RICE, VINYL DIPPER-C Status:ADM IN Y Location: [place] [address] Consult Antibiotic Management Pharmacy has been consulted to manage selected antibiotic: Vancomycin Type of Intervention Type of Consult: Follow-up Labs Labs: Sodium 143 mmol/L (133-145) 08/02/24 05:28 Potassium 3.1 mmol/L (3.3-5.1) L 08/02/24 05:28 Chloride 108 mmol/L (98-108) 08/02/24 05:28 Carbon Dioxide 20.8 mmol/L (21.0-32.0) L 08/02/24 05:28 Anion Gap 14 (5-15) 08/02/24 05:28 BUN 18 mg/dL (4-19) 08/02/24 05:28 Creatinine 1.32 mg/dL (0.70-1.20) H 08/02/24 05:28 Est GFR (MDRD) Non-Af 45 (>60) L 08/02/24 05:28 BUN/Creatinine Ratio 13.9 RATIO (10-20) 08/02/24 05:28 Glucose 170 mg/dL (70-99) H 08/02/24 05:28 Vancomycin Trough 20.5 ug/mL (5.0-15.0) H 08/03/24 01:54 Microbiology Microbiology: Microbiology 07/31/24 09:55 Blood Culture (Wb) - Right Hand Blood Culture - Preliminary No growth in 48 hours. 07/29/24 22:30 Blood Culture (Wb) - Anticubital Left Bacteria Detection (PCR) - Final Meth. resistant Staph. aureus 07/29/24 22:30 Blood Culture (Wb) - Anticubital Left Blood Culture - Final Meth. resistant Staph. aureus 07/29/24 22:25 Blood Culture (Wb) - Right Hand Blood Culture - Final Staphylococcus aureus 07/30/24 12:50 Urine, Clean Catch Legionella Antigen - Final 07/30/24 12:50 Urine, Clean Catch Streptococcus pneumoniae Antigen (M - Final 07/30/24 12:20 Mucosa - Nasopharyngeal Respiratory Panel (PCR) - Final Goal Trough Goal Trough: 15-20 mcg/mL Pharmacy Plan for Drug Dosing Pharmacy Plan for Drug Dosing: Pharmacy Service will continue to monitor and adjust dosing as required. ANTONIETTA 20.5 @ 12.5 HOURS. HOLD DOSE AND DRAW RANDOM LEVEL IN 6 HOURS Follow-Up Labs Follow-Up Labs: Trough: Vancomycin Date/Time Labs Ordered Labs to be done on [date and time ordered]: 08/03 @ 0800 08/03/24 025 <Electronically signed by Vitor bergman> Date _ Vitor Pichardo Cosigner Signature (if applicable): Date CC: ~ Signed [facility] Work Phone: 1([phone]) 157-662206-02-2025 Consult note [facility] Medical Records Department [address] [facility] [place] [address] Pharmacokinetic/Renal -Consult 08/03/248 MR#: [id number] Acct: [id number] Name: LEYDA LOPEZ Rep #:[id number] : 1960 63 From: Vitor Talbert od PCP: DALI RICE, VINYL DIPPER-C Status:ADM IN Location: [place] [address] Consult Antibiotic Management Pharmacy has been consulted to manage selected antibiotic: Vancomycin Type of Intervention Type of Consult: Follow-up Labs Labs: Sodium 143 mmol/L (133-145) 08/02/24 05:28 Potassium 3.1 mmol/L (3.3-5.1) L 08/02/24 05:28 Chloride 108 mmol/L (98-108) 08/02/24 05:28 Carbon Dioxide 20.8 mmol/L (21.0-32.0) L 08/02/24 05:28 Anion Gap 14 (5-15) 08/02/24 05:28 BUN 18 mg/dL (4-19) 08/02/24 05:28 Creatinine 1.32 mg/dL (0.70-1.20) H 08/02/24 05:28 Est GFR (MDRD) Non-Af 45 (>60) L 08/02/24 05:28 BUN/Creatinine Ratio 13.9 RATIO (10-20) 08/02/24 05:28 Glucose 170 mg/dL (70-99) H 08/02/24 05:28 Vancomycin Trough 20.5 ug/mL (5.0-15.0) H 08/03/24 01:54 Microbiology Microbiology: Microbiology 07/31/24 09:55 Blood Culture (Wb) - Right Hand Blood Culture - Preliminary No growth in 48 hours. 07/29/24 22:30 Blood Culture (Wb) - Anticubital Left Bacteria Detection (PCR) - Final Meth. resistant Staph. aureus 07/29/24 22:30 Blood Culture (Wb) - Anticubital Left Blood Culture - Final Meth. resistant Staph. aureus 07/29/24 22:25 Blood Culture (Wb) - Right Hand Blood Culture - Final Staphylococcus aureus 07/30/24 12:50 Urine, Clean Catch Legionella Antigen - Final 07/30/24 12:50 Urine, Clean Catch Streptococcus pneumoniae Antigen (M - Final 07/30/24 12:20 Mucosa - Nasopharyngeal Respiratory Panel (PCR) - Final Goal Trough Goal Trough: 15-20 mcg/mL Pharmacy Plan for Drug Dosing Pharmacy Plan for Drug Dosing: Pharmacy Service will continue to monitor and adjust dosing as required. ANTONIETTA 20.5 @ 12.5 HOURS. HOLD DOSE AND DRAW RANDOM LEVEL IN 6 HOURS Follow-Up Labs Follow-Up Labs: Trough: Vancomycin Date/Time Labs Ordered Labs to be done on [date and time ordered]: 08/03 @ 0800 08/03/24 0259 lood> Date _ Vitor Owens Signature (if applicable): Date CC: ~ Signed [facility]06-01-2025 Progress note Author Sid Hillman [facility] Note Date/Time August 02, 2024 2:05p [facility] Medical Records Department [address] [place] [address] Progress Note - Hospitalist 08/02/24 1359 MR#: [id number] Acct: [id number] Name: LEYDA LOPEZ Rep #:[id number] : 1960 63 From: Sid Rivera PCP: DALI RICE, VINYL DIPPER-C Status:ADM IN Location: [place] [address] Reason for Visit Reason for Visit: Diagnoses Sepsis, unspecified organism (07/26/24) Methicillin resistant Staphylococcus aureus infection as the cause of diseases classified elsewhere (07/26/24) Nicotine dependence, cigarettes, uncomplicated (07/26/24) Essential (primary) hypertension (07/26/24) Chronic obstructive pulmonary disease, unspecified (07/26/24) Unspecified intestinal obstruction, unspecified as to partial versus complete obstruction (07/26/24) Rheumatoid arthritis, unspecified (07/26/24) Acute kidney failure, unspecified (07/26/24) Bacteremia (07/26/24) Objective Data Objective Data Vital Signs: Vital Signs Temp Pulse Resp BP Pulse Ox O2 Del Method O2 Flow Rate 97.8 F 93 20 H 178/108 H 93 Nasal Cannula 3 08/02/24 08:11 08/02/24 08:11 08/02/24 08:11 08/02/24 08:11 08/02/24 08:11 08/02/24 08:41 08/02/24 08:41 Oxygen Flow Rate (L/min) 3 Oxygen Delivery Method Nasal Cannula Weight: 142 lb 6.698 oz Body Mass Index (BMI) 30.8 Intake & Output: Intake and Output for Last 24 Hours 07/31/24 08/01/24 08/02/24 23:59 23:59 23:59 Intake Total 3848.32 / 3948.32 3195.83 / 3195.83 693.75 / 693.75 Output Total 700 / 700 1000 / 1000 Balance 3148.32 / 3248.32 2195.83 / 2195.83 693.75 / 693.75 Lab / Micro Data 08/02/24 05:28 08/02/24 05:28 Labs: Laboratory Results - last 24 hr 08/01/24 17:03: Magnesium 1.3 L 08/02/24 05:28: WBC 12.0 H, RBC 3.04 L, Hgb 8.9 L, Hct 28.0 L, MCV 92.1, MCH 29.3, MCHC 31.8 L, RDW Std Deviation 48.2 H, RDW Coeff of Alejandra 14.3, Plt Count 261, MPV 11.0, Immature Gran % (Auto) 1.100 H, Neut % (Auto) 86.5 H, Lymph % (Auto) 8.5 L, [place] % (Auto) 3.6, Eos % (Auto) 0.0, Baso % (Auto) 0.3, Absolute Neuts (auto) 10.4 H, Absolute Lymphs (auto) 1.02, Nucleated RBC % 0.2, Differential Comment , Sodium 143, Potassium 3.1 L, Chloride 108, Carbon [id number] L, Anion Gap 14, BUN 18, Creatinine 1.32 H, Estim Creat Clear Calc 36.60 L,Est GFR (MDRD) Non-Af 45 L, BUN/Creatinine Ratio 13.9, Glucose 170 H, Calcium 8.3 Micro: Microbiology 07/29/24 22:30 Blood Culture (Wb) - Anticubital Left Bacteria Detection (PCR) - Final Meth. resistant Staph. aureus 07/29/24 22:30 Blood Culture (Wb) - Anticubital Left Blood Culture - Final Meth. resistant Staph. aureus 07/29/24 22:25 Blood Culture (Wb) - Right Hand Blood Culture - Final Staphylococcus aureus 07/30/24 12:50 Urine, Clean Catch Legionella Antigen - Final 07/30/24 12:50 Urine, Clean Catch Streptococcus pneumoniae Antigen (M - Final 07/30/24 12:20 Mucosa - Nasopharyngeal Respiratory Panel (PCR) - Final ABG Data ABG results: ABG 08/01/24 16:34 Specimen Type ART Sample Site R Brach pH 7.48 H Bicarbonate Actual 24.9 Total CO2 26 Base Excess 1 O2 Saturation 98 O2 % 3.0 ABG pCO2 33.1 L ABG pO2 90 Carrie Test Positive O2 Delivery Device Cannula Vent Mode Not entered Radiography Diagnostic Testing: Radiology Impression Chest CT 08/01/24 14:55 IMPRESSION: Bilateral pleural effusions with associated atelectasis which have progressed since prior CT. Left lung mass in and nodular densities which are similar to the prior CT. Right lung ground-glass opacities which are similar to the prior CT. Details above. Reading Location: [id number] Lumbar Sp[address] 08/01/24 14:55 IMPRESSION: L4-5 spondylosis and spondylolisthesis. Details above. No definite abnormal enhancement. Reading Location: [id number] Thoracic [address] 08/01/24 14:55 IMPRESSION: No acute osseous abnormalities. Spondylosis. Exaggerated kyphosis. Bilateral pleural effusions. Right basilar density and right apical ground-glass opacities suspicious for infection. Left apical micronodular opacities which may represent infection. Follow-up to resolution is recommended to exclude a neoplastic process. Reading Location: [id number] Physical Exam Narrative Seen and examined. She looks better than yesterday. No fever today. Tmax 99 Fahrenheit yesterday evening. Anxiety and tranquilizer medications were decreased yesterday Physical exam General: Awake and alert. HEENT: Atraumatic, PERRLA, EOMI, Normocephalic. Oral: No Gingival or Mucosal Lesions/ Ulcerations Neck: Supple, No JVD, Negative Carotid Bruits Chest wall/Lungs: Air entry diminished in bilateral lung bases. Mild bilateralwheezing Cardiovascular: Sinus tachycardic, Normal S1,S2, No M/G/R Abdomen: Bowel Sounds Present, Soft, Non Tender, Non-Distended : No dysuria. No renal angle tenderness. No suprapubic tenderness. Extremities: Swelling and tenderness of the right antecubital region. No axillary lymph node palpable. No pedal edema Skin: Redness over right antecubital region, possible superficial thrombophlebitis, IV line Musculoskeletal: No Tenderness to Palpation of Joints or Extremities Neurological: Cranial nerves II-XII grossly intact, DTR 2+/4. No acute focal neurological deficit. Psych/Mental Status: Flat affect Assessment & Plan Assessment/Plan (1) Small bowel obstruction: PLAN: Plan #Small bowel obstruction * Admitted with complaint of abdominal pain and distention. CT of the abdomen showed a small bowel obstruction. * Resolved. NG tube is now out and she tolerated regular diet. * She has small bowel follow-through yesterday which showed no evidence of obstruction. #Probable infective endocarditis due to MRSA bacteremia or source unclear * Patient developed a fever 2 days ago and Spiking fever. * Chest x-ray done overnight showed bibasilar atelectasis versus effusion and infection cannot be excluded * Urinalysis showed no evidence of UTI. * blood cultures growing gram positive bacteremia * Blood PCR showing MRSA * Vancomycin IV added on. IV Zosyn discontinued. * 2D echo showed a large mass noted on the left ventricular/papillary muscle. EF is 55 to 60%. This is concerning for infective endocarditis. * ID on board and cardiology was consulted per ID. Patient refusing a JENNIFER. She was also complaining of lower back pain so I did order thoracic MRI but patient is also refusing thoracic MRI. * Continue on IV vancomycin for now. * P.o. Tylenol every 6 hours as needed. * per ID, may need transfer to Tertiary facility for CT surgery evaluation if mass is >1cm. 07/14: Patient is tachycardic 126, tachypneic, febrile, BP 144/130. 1 L Ringer lactate ordered. Monitor intake and output. DuoNeb ordered. Tylenol. Patienton IV antibiotic. Plan for JENNIFER on Saturday. 08/02: No fever since last evening. Overall she is more awake and alert. On [address] chest with IV contrast shows moderate bilateral pleural effusion with atelectasis, left lingular subpleural 4.7 x 1.9 cm mass abutting the mediastinum similar in size. Right apical groundglass opacity similar to prior. Right lung groundglass opacities. Thoracic spine shows no acute osseous abnormality, chronic spondylosis/exaggerated kyphosis with bilateral pleural effusion. Lumbar spine CT L4-5 spondylosis and a spondylolisthesis. No definite abnormal enhancement. Therefore, thoracic and lumbar spine does not show focus of infection. ID follow-up tomorrow a.m. Plan for JENNIFER tomorrow Severe anemia: H&H 7.3/21%. Dropped from 9.1 g on 07/30. MCV normal. Probably inflammatory #JOSE * resolved. * #GERD: PPI #Hypokalemia: potassium is 2.8. Will replace. Check magnesium. #History of heart failure preserved ejection fraction: * Not in exacerbation. has known EF of 55% * Breathing treatments bronchodilators. #COPD: 08/01: Patient has shortness of breath, wheezing and dyspnea, possible COPD exacerbation. Scheduled DuoNeb and IV Solu-Medrol ordered. #Anxiety and depression: on buspirone and amitryptiline #Hypertension: lisinopril resumed. IV hydralazine prn #Depression: on buspirone and amitryptiline. as well as lexapro #History of migraines: stable. Not having any active migraine now. DVT prophylaxis: lovenox Clinical Impression(s) from Imaging Studies Abdomen/Pelvis CT 07/26/24 16:40 IMPRESSION: 1. Diffuse dilation of the small bowel, with the transition point within the distal duodenum within the left upper quadrant. No pneumoperitoneum. 2. Diffuse hepatic steatosis. 3. Stable bibasilar consolidations. Reading Location: [facility] KUB X-Ray 07/26/24 18:50 IMPRESSION: Interval gastric tube placement as described. Reading Location: [facility] Small Bowel X-Ray 07/28/24 07:10 IMPRESSION: No evidence of small-bowel obstruction at this time. Large amount of fecal material is seen in the colon. Reading Location: [facility] Chest X-Ray 07/29/24 21:20 IMPRESSION: Bibasilar atelectasis/effusion. Infection can not be excluded. [facility] Ech[facility] 07/30/24 13:15 Interpretation Summary Large mass noted in the LV/large papillary muscle The estimated ejection fraction is 55-60 %. No previous study to compare Recommendation; consider JENNIFER evaluation Ordering Physician: Dolly Daniels Referring Physician: DALI RICE Performed By: Susanna Walker and Student Chest CT 08/01/24 14:55 IMPRESSION: Bilateral pleural effusions with associated atelectasis which have progressed since prior CT. Left lung mass in and nodular densities which are similar to the prior CT. Right lung ground-glass opacities which are similar to the prior CT. Details above. Reading Location: [place] [address] 08/01/24 14:55 IMPRESSION: L4-5 spondylosis and spondylolisthesis. Details above. No definite abnormal enhancement. Reading Location: [place] [address] 08/01/24 14:55 IMPRESSION: No acute osseous abnormalities. Spondylosis. Exaggerated kyphosis. Bilateral pleural effusions. Right basilar density and right apical ground-glass opacities suspicious for infection. Left apical micronodular opacities which may represent infection. Follow-up to resolution is recommended to exclude a neoplastic process. Reading Location: [place] [address] Charges/Coding Visit Charges Inpatient E&M: 94560 Subs Hosp L2 08/02/24 1405 <Electronically signed by Sid Hillman MD> Cosigner Signature (if applicable): CC: ~ Signed [facility] Work Phone: 1(197) 794-622906-01-2025 Progress note Author Sam Graves [facility] Note Date/Time August 02, 2024 12:28 pm [facility] Medical Records Department [address] [place] [address] Progress Note - Cardiology 08/02/24 1223 MR#: [id number] Acct: [id number] Name: LEYDA LOPEZ Rep #:[id number] : 1960 63 From: Sam Graves MD PCP: DALI RICE, VINYL DIPPER-C Status:ADM IN Location: [place] [id number] Objective Data Vital Signs: Vital Signs Temp Pulse Resp BP Pulse Ox O2 Del Method O2 Flow Rate 97.8 F 93 20 H 178/108 H 93 Nasal Cannula 3 08/02/24 08:11 08/02/24 08:11 08/02/24 08:11 08/02/24 08:11 08/02/24 08:11 08/02/24 08:41 08/02/24 08:41 Oxygen Flow Rate (L/min) 3 Oxygen Delivery Method Nasal Cannula Weight: 142 lb 6.698 oz Body Mass Index (BMI) 30.8 Intake & Output: Intake and Output for Last 24 Hours 07/31/24 08/01/24 08/02/24 23:59 23:59 23:59 Intake Total 3848.32 / 3948.32 3195.83 / 3195.83 693.75 / 693.75 Output Total 700 / 700 1000 / 1000 Balance 3148.32 / 3248.32 2195.83 / 2195.83 693.75 / 693.75 Lab / Micro Data 08/02/24 05:28 08/02/24 05:28 Labs: Laboratory Results - last 24 hr 08/01/24 17:03: Magnesium 1.3 L 08/02/24 05:28: WBC 12.0 H, RBC 3.04 L, Hgb 8.9 L, Hct 28.0 L, MCV 92.1, MCH 29.3, MCHC 31.8 L, RDW Std Deviation 48.2 H, RDW Coeff of Alejandra 14.3, Plt Count 261, MPV 11.0, Immature Gran % (Auto) 1.100 H, Neut % (Auto) 86.5 H, Lymph % (Auto) 8.5 L, [place] % (Auto) 3.6, Eos % (Auto) 0.0, Baso % (Auto) 0.3, Absolute Neuts (auto) 10.4 H, Absolute Lymphs (auto) 1.02, Nucleated RBC % 0.2, Differential Comment , Sodium 143, Potassium 3.1 L, Chloride 108, Carbon Vlncdbu67.8 L, Anion Gap 14, BUN 18, Creatinine 1.32 H, Estim Creat Clear Calc 36.60 L,Est GFR (MDRD) Non-Af 45 L, BUN/Creatinine Ratio 13.9, Glucose 170 H, Calcium 8.3 Micro: Microbiology 07/29/24 22:30 Blood Culture (Wb) - Anticubital Left Bacteria Detection (PCR) - Final Meth. resistant Staph. aureus 07/29/24 22:30 Blood Culture (Wb) - Anticubital Left Blood Culture - Final Meth. resistant Staph. aureus ABG Data ABG results: ABG 08/01/24 16:34 Specimen Type ART Sample Site R Brach pH 7.48 H Bicarbonate Actual 24.9 Total CO2 26 Base Excess 1 O2 Saturation 98 O2 % 3.0 ABG pCO2 33.1 L ABG pO2 90 Carrie Test Positive O2 Delivery Device Cannula Vent Mode Not entered Cardiology Labs/Tests 08/01/24 16:34: pH 7.48 H, Bicarbonate Actual 24.9, Base Excess 1, O2 [id number], ABG pCO2 33.1 L, ABG pO2 90, Carrie Test Positive 08/01/24 17:03: Magnesium 1.3 L 08/02/24 05:28: WBC 12.0 H, RBC 3.04 L, Hgb 8.9 L, Hct 28.0 L, MCV 92.1, MCH 29.3, MCHC 31.8 L, Plt Count 261, MPV 11.0, Immature Gran % (Auto) 1.100 H, Neut% (Auto) 86.5 H, Lymph % (Auto) 8.5 L, [place] % (Auto) 3.6, Eos % (Auto) 0.0, Baso% (Auto) 0.3, Absolute Neuts (auto) 10.4 H, Nucleated RBC % 0.2, Sodium 143, Potassium 3.1 L, Chloride 108, Carbon Dioxide 20.8 L, Anion Gap 14, BUN 18, Creatinine 1.32 H, Est GFR (MDRD) Non-Af 45 L, BUN/Creatinine Ratio 13.9, [id number] H, Calcium 8.3 Rhythm: EKG: ECHO: Stress Test: Cardiac Cath: PCI: CT Surgery: Holter monitor: EPS: PPM: CXR: Chest CT Scan: Radiography Diagnostic Testing: Radiology Impression Chest CT 08/01/24 14:55 IMPRESSION: Bilateral pleural effusions with associated atelectasis which have progressed since prior CT. Left lung mass in and nodular densities which are similar to the prior CT. Right lung ground-glass opacities which are similar to the prior CT. Details above. Reading Location: [id number] Lumbar Spine CT 08/01/24 14:55 IMPRESSION: L4-5 spondylosis and spondylolisthesis. Details above. No definite abnormal enhancement. Reading Location: [id number] Thoracic Spine CT 08/01/24 14:55 IMPRESSION: No acute osseous abnormalities. Spondylosis. Exaggerated kyphosis. Bilateral pleural effusions. Right basilar density and right apical ground-glass opacities suspicious for infection. Left apical micronodular opacities which may represent infection. Follow-up to resolution is recommended to exclude a neoplastic process. Reading Location: [id number] Physical Exam Cardio Cardio Narrative: Seen and evaluated at bedside The court recording monitor showed normal sinus Cardiac exam S1-S2 is regular Chest exam is clear auscultation bilateral Patient declined to be evaluated with JENNIFER. I discussed the need for evaluation and she insisted to refuse the JENNIFER evaluation. Assessment & Plan Assessment/Plan (1) JOSE (acute kidney injury): (2) Small bowel obstruction: (3) Smoking greater than 20 pack years: (4) COPD (chronic obstructive pulmonary disease): (5) HTN (hypertension): (6) MRSA bacteremia: PLAN: 63-year-old patient seen and evaluated at bedside today. Feeling better not in acute distress. Patient has anemia with a hemoglobin of 7.3 hematocrit 23.1 platelet count within normal She has MRSA bacteremia Etiology is not identified Cardiac care plan; Incidental finding of enlarged papillary muscle and LV On review of the transthoracic echocardiogram there is no valvular vegetation. ID seen the patient and started on antibiotic with vancomycin, I discussed need for evaluation by JENNIFER patient declined JENNIFER Will continue to follow-up clinically. 08/02/24 1228 <Electronically signed by Sam Graves MD> Cosigner Signature (if applicable): CC: ~ Signed [facility] Work Phone: 1(961) 206-729506-01-2025 Progress note [facility] Medical Records Department [address] [place] [id number] Progress Note - Hospitalist 08/02/24 1353 MR#: [id number] Acct: [id number] Name: LEYDA LOPEZ Rep #:[id number] : 1960 63 From: Sid Rivera PCP: DALI RICE, VINYL DIPPER-C Status:ADM IN Location: [place] [address] Reason for Visit Reason for Visit: Diagnoses Sepsis, unspecified organism (07/26/24) Methicillin resistant Staphylococcus aureus infection as the cause of diseases classified elsewhere(07/26/24) Nicotine dependence, cigarettes, uncomplicated (07/26/24) Essential (primary) hypertension (07/26/24) Chronic obstructive pulmonary disease, unspecified (07/26/24) Unspecified intestinal obstruction, unspecified as to partial versus complete obstruction (07/26/24) Rheumatoid arthritis, unspecified (07/26/24) Acute kidney failure, unspecified (07/26/24) Bacteremia (07/26/24) Objective Data Objective Data Vital Signs: Vital Signs Temp Pulse Resp BP Pulse Ox O2 Del Method O2 Flow Rate 97.8 F 93 20 H 178/108 H 93 Nasal Cannula 3 08/02/24 08:11 08/02/24 08:11 08/02/24 08:11 08/02/24 08:11 08/02/24 08:11 08/02/24 08:41 08/02/24 08:41 Oxygen Flow Rate (L/min) 3 Oxygen Delivery Method Nasal Cannula Weight: 142 lb 6.698 oz Body Mass Index (BMI) 30.8 Intake & Output: Intake and Output for Last 24 Hours 07/31/24 08/01/24 08/02/24 23:59 23:59 23:59 Intake Total 3848.32 / 3948.32 3195.83 / 3195.83 693.75 / 693.75 Output Total 700 / 700 1000 / 1000 Balance 3148.32 / 3248.32 2195.83 / 2195.83 693.75 / 693.75 Lab / Micro Data 08/02/24 05:28 08/02/24 05:28 Labs: Laboratory Results - last 24 hr 08/01/24 17:03: Magnesium 1.3 L 08/02/24 05:28: WBC 12.0 H, RBC 3.04 L, Hgb 8.9 L, Hct 28.0 L, MCV 92.1, MCH 29.3, MCHC 31.8 L, RDWStd Deviation 48.2 H, RDW Coeff of Alejandra 14.3, Plt Count 261, MPV 11.0, Immature Gran % (Auto) 1.100 H, Neut % (Auto) 86.5 H, Lymph % (Auto) 8.5 L, [place] % (Auto) 3.6, Eos % (Auto) 0.0, Baso % (Auto) 0.3, Absolute Neuts (auto) 10.4 H, Absolute Lymphs (auto) 1.02, Nucleated RBC % 0.2, Differential Comment , Sodium 143, Potassium 3.1 L, Chloride 108, Carbon Uijmhgv91.8 L, Anion Gap 14, BUN 18, Creatinine 1.32 H, Estim Creat Clear Calc 36.60 L,Est GFR (MDRD) Non-Af 45 L, BUN/Creatinine Ratio 13.9, Glucose 170 H, Calcium 8.3 Micro: Microbiology 07/29/24 22:30 Blood Culture (Wb) - Anticubital Left Bacteria Detection (PCR) - Final Meth. resistant Staph. aureus 07/29/24 22:30 Blood Culture (Wb) - Anticubital Left Blood Culture - Final Meth. resistant Staph. aureus 07/29/24 22:25 Blood Culture (Wb) - Right Hand Blood Culture - Final Staphylococcus aureus 07/30/24 12:50 Urine, Clean Catch Legionella Antigen - Final 07/30/24 12:50 Urine, Clean Catch Streptococcus pneumoniae Antigen (M - Final 07/30/24 12:20 Mucosa - Nasopharyngeal Respiratory Panel (PCR) - Final ABG Data ABG results: ABG 08/01/24 16:34 Specimen Type ART Sample Site R Brach pH 7.48 H Bicarbonate Actual 24.9 Total CO2 26 Base Excess 1 O2 Saturation 98 O2 % 3.0 ABG pCO2 33.1 L ABG pO2 90 Carrie Test Positive O2 Delivery Device Cannula Vent Mode Not entered Radiography Diagnostic Testing: Radiology Impression Chest CT 08/01/24 14:55 IMPRESSION: Bilateral pleural effusions with associated atelectasis which have progressed since prior CT. Left lung mass in and nodular densities which are similar to the prior CT. Right lung ground-glass opacities which are similar to the prior CT. Details above. Reading Location: [place] [address] 08/01/24 14:55 IMPRESSION: L4-5 spondylosis and spondylolisthesis. Details above. No definite abnormal enhancement. Reading Location: [id number] Thoracic Spine [address] 08/01/24 14:55 IMPRESSION: No acute osseous abnormalities. Spondylosis. Exaggerated kyphosis. Bilateral pleural effusions. Right basilar density and right apical ground-glass opacities suspicious for infection. Left apical micronodular opacities which may represent infection. Follow-up to resolution is recommended to exclude a neoplastic process. Reading Location: [id number] Physical Exam Narrative Seen and examined. She looks better than yesterday. No fever today. Tmax 99 Fahrenheit yesterday evening. Anxiety and tranquilizer medications were decreased yesterday Physical exam General: Awake and alert. HEENT: Atraumatic, PERRLA, EOMI, Normocephalic. Oral: No Gingival or Mucosal Lesions/ Ulcerations Neck: Supple, No JVD, Negative Carotid Bruits Chest wall/Lungs: Air entry diminished in bilateral lung bases. Mild bilateralwheezing Cardiovascular: Sinus tachycardic, Normal S1,S2, No M/G/R Abdomen: Bowel Sounds Present, Soft, Non Tender, Non-Distended : No dysuria. No renal angle tenderness. No suprapubic tenderness. Extremities: Swelling and tenderness of the right antecubital region. No axillary lymph node palpable. No pedal edema Skin: Redness over right antecubital region, possible superficial thrombophlebitis, IV line Musculoskeletal: No Tenderness to Palpation of Joints or Extremities Neurological: Cranial nerves II-XII grossly intact, DTR 2+/4. No acute focal neurological deficit. Psych/Mental Status: Flat affect Assessment & Plan Assessment/Plan (1) Small bowel obstruction: PLAN: Plan #Small bowel obstruction * Admitted with complaint of abdominal pain and distention. CT of the abdomen showed a small bowel obstruction. * Resolved. NG tube is now out and she tolerated regular diet. * She has small bowel follow-through yesterday which showed no evidence of obstruction. #Probable infective endocarditis due to MRSA bacteremia or source unclear * Patient developed a fever 2 days ago and Spiking fever. * Chest x-ray done overnight showed bibasilar atelectasis versus effusion and infection cannot be excluded * Urinalysis showed no evidence of UTI. * blood cultures growing gram positive bacteremia * Blood PCR showing MRSA * Vancomycin IV added on. IV Zosyn discontinued. * 2D echo showed a large mass noted on the left ventricular/papillary muscle. EF is 55 to 60%. Thisis concerning for infective endocarditis. * ID on board and cardiology was consulted per ID. Patient refusing a JENNIFER. She was also complainingof lower back pain so I did order thoracic MRI but patient is also refusing thoracic MRI. * Continue on IV vancomycin for now. * P.o. Tylenol every 6 hours as needed. * per ID, may need transfer to Tertiary facility for CT surgery evaluation if mass is >1cm. 07/14: Patient is tachycardic 126, tachypneic, febrile, BP 144/130. 1 L Ringer lactate ordered. Monitor intake and output. DuoNeb ordered. Tylenol. Patienton IV antibiotic. Plan for JENNIFER on Saturday. 08/02: No fever since last evening. Overall she is more awake and alert. On [address] chest with IV contrast shows moderate bilateral pleural effusion with atelectasis, left lingular subpleural4.7 x 1.9 cm mass abutting the mediastinum similar in size. Right apical groundglass opacity similar to prior. Right lung groundglass opacities. 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 Lumbar spine CT L4-5 spondylosis and a spondylolisthesis. No definite abnormal enhancement. Therefore, thoracic and lumbar spine does not show focus of infection. ID follow-up tomorrow a.m. Plan for JENNIFER tomorrow Severe anemia: H&H 7.3/21%. Dropped from 9.1 g on 07/30. MCV normal. Probably inflammatory #JOSE * resolved. * #GERD: PPI #Hypokalemia: potassium is 2.8. Will replace. Check magnesium. #History of heart failure preserved ejection fraction: * Not in exacerbation. has known EF of 55% * Breathing treatments bronchodilators. #COPD: 08/01: Patient has shortness of breath, wheezing and dyspnea, possible COPD exacerbation. Scheduled DuoNeb and IV Solu-Medrol ordered. #Anxiety and depression: on buspirone and amitryptiline #Hypertension: lisinopril resumed. IV hydralazine prn #Depression: on buspirone and amitryptiline. as well as lexapro #History of migraines: stable. Not having any active migraine now. DVT prophylaxis: lovenox Clinical Impression(s) from Imaging Studies Abdomen/Pelvis CT 07/26/24 16:40 IMPRESSION: 1. Diffuse dilation of the small bowel, with the transition point within the distal duodenum withinthe left upper quadrant. No pneumoperitoneum. 2. Diffuse hepatic steatosis. 3. Stable bibasilar consolidations. Reading Location: [facility] X-Ray 07/26/24 18:50 IMPRESSION: Interval gastric tube placement as described. Reading Location: [facility] Small Bowel X-Ray 07/28/24 07:10 IMPRESSION: No evidence of small-bowel obstruction at this time. Large amount of fecal material is seen in the colon. Reading Location: [facility] Chest X-Ray 07/29/24 21:20 IMPRESSION: Bibasilar atelectasis/effusion. Infection can not be excluded. Reading Location: [facility] Echocardiogram 07/30/24 13:15 Interpretation Summary Large mass noted in the LV/large papillary muscle The estimated ejection fraction is 55-60 %. No previous study to compare Recommendation; consider JENNIFER evaluation Ordering Physician: Dolly Daniels Referring Physician: DALI RICE Performed By: Susanna Walker and Student Chest CT 08/01/24 14:55 IMPRESSION: Bilateral pleural effusions with associated atelectasis which have progressed since prior CT. Left lung mass in and nodular densities which are similar to the prior CT. Right lung ground-glass opacities which are similar to the prior CT. Details above. Reading Location: [id number] Lumbar Spine CT 08/01/24 14:55 IMPRESSION: L4-5 spondylosis and spondylolisthesis. Details above. No definite abnormal enhancement. Reading Location: [id number] Thoracic Spine CT 08/01/24 14:55 IMPRESSION: No acute osseous abnormalities. Spondylosis. Exaggerated kyphosis. Bilateral pleural effusions. Right basilar density and right apical ground-glass opacities suspicious for infection. Left apical micronodular opacities which may represent infection. Follow-up to resolution is recommended to exclude a neoplastic process. Reading Location: [id number] Charges/Coding Visit Charges Inpatient E&M: 87729 Subs Hosp L2 08/02/24 1405 Cosigner Signature (if applicable): CC: ~ Signed [facility]06-01-2025 Progress note [facility] Medical Records Department [address] [place] [address] Progress Note - Cardiology 08/02/24 1223 MR#: [id number] Acct: [id number] Name: LEYDA LOPEZ Rep #:[id number] : 1960 63 From: Sam Graves MD PCP: DALI RICE VINYL DIPPER-C Status:ADM IN Location: [facility] [id number] Objective Data Vital Signs: Vital Signs Temp Pulse Resp BP Pulse Ox O2 Del Method O2 Flow Rate 97.8 F 93 20 H 178/108 H 93 Nasal Cannula 3 08/02/24 08:11 08/02/24 08:11 08/02/24 08:11 08/02/24 08:11 08/02/24 08:11 08/02/24 08:41 08/02/24 08:41 Oxygen Flow Rate (L/min) 3 Oxygen Delivery Method Nasal Cannula Weight: 142 lb 6.698 oz Body Mass Index (BMI) 30.8 Intake & Output: Intake and Output for Last 24 Hours 07/31/24 08/01/24 08/02/24 23:59 23:59 23:59 Intake Total 3848.32 / 3948.32 3195.83 / 3195.83 693.75 / 693.75 Output Total 700 / 700 1000 / 1000 Balance 3148.32 / 3248.32 2195.83 / 2195.83 693.75 / 693.75 Lab / Micro Data 08/02/24 05:28 08/02/24 05:28 Labs: Laboratory Results - last 24 hr 08/01/24 17:03: Magnesium 1.3 L 08/02/24 05:28: WBC 12.0 H, RBC 3.04 L, Hgb 8.9 L, Hct 28.0 L, MCV 92.1, MCH 29.3, MCHC 31.8 L, RDWStd Deviation 48.2 H, RDW Coeff of Alejandra 14.3, Plt Count 261, MPV 11.0, Immature Gran % (Auto) 1.100 H, Neut % (Auto) 86.5 H, Lymph % (Auto) 8.5 L, [place] % (Auto) 3.6, Eos % (Auto) 0.0, Baso % (Auto) 0.3, Absolute Neuts (auto) 10.4 H, Absolute Lymphs (auto) 1.02, Nucleated RBC % 0.2, Differential Comment , Sodium 143, Potassium 3.1 L, Chloride 108, Carbon Xeggegg85.8 L, Anion Gap 14, BUN 18, Creatinine 1.32 H, Estim Creat Clear Calc 36.60 L,Est GFR (MDRD) Non-Af 45 L, BUN/Creatinine Ratio 13.9, Glucose 170 H, Calcium 8.3 Micro: Microbiology 07/29/24 22:30 Blood Culture (Wb) - Anticubital Left Bacteria Detection (PCR) - Final Meth. resistant Staph. aureus 07/29/24 22:30 Blood Culture (Wb) - Anticubital Left Blood Culture - Final Meth. resistant Staph. aureus ABG Data ABG results: ABG 08/01/24 16:34 Specimen Type ART Sample Site R Brach pH 7.48 H Bicarbonate Actual 24.9 Total CO2 26 Base Excess 1 O2 Saturation 98 O2 % 3.0 ABG pCO2 33.1 L ABG pO2 90 Carrie Test Positive O2 Delivery Device Cannula Vent Mode Not entered Cardiology Labs/Tests 08/01/24 16:34: pH 7.48 H, Bicarbonate Actual 24.9, Base Excess 1, O2 [id number], ABG pCO2 33.1 L, ABG pO2 90, Carrie Test Positive 08/01/24 17:03: Magnesium 1.3 L 08/02/24 05:28: WBC 12.0 H, RBC 3.04 L, Hgb 8.9 L, Hct 28.0 L, MCV 92.1, MCH 29.3, MCHC 31.8 L, PltCount 261, MPV 11.0, Immature Gran % (Auto) 1.100 H, Neut% (Auto) 86.5 H, Lymph % (Auto) 8.5 L, [place] % (Auto) 3.6, Eos % (Auto) 0.0, Baso% (Auto) 0.3, Absolute Neuts (auto) 10.4 H, Nucleated RBC % 0.2, Sodium 143, Potassium 3.1 L, Chloride 108, Carbon Dioxide 20.8 L, Anion Gap 14, BUN 18, Creatinine 1.32 H, Est GFR (MDRD) Non-Af 45 L, BUN/Creatinine Ratio 13.9, [id number] H, Calcium 8.3 Rhythm: EKG: ECHO: Stress Test: Cardiac Cath: PCI: CT Surgery: Holter monitor: EPS: PPM: CXR: Chest CT Scan: Radiography Diagnostic Testing: Radiology Impression Chest CT 08/01/24 14:55 IMPRESSION: Bilateral pleural effusions with associated atelectasis which have progressed since prior CT. Left lung mass in and nodular densities which are similar to the prior CT. Right lung ground-glass opacities which are similar to the prior CT. Details above. Reading Location: [place] [address] 08/01/24 14:55 IMPRESSION: L4-5 spondylosis and spondylolisthesis. Details above. No definite abnormal enhancement. Reading Location: [id number] 08/01/24 14:55 IMPRESSION: No acute osseous abnormalities. Spondylosis. Exaggerated kyphosis. Bilateral pleural effusions. Right basilar density and right apical ground-glass opacities suspicious for infection. Left apical micronodular opacities which may represent infection. Follow-up to resolution is recommended to exclude a neoplastic process. Reading Location: [place] [address] Physical Exam Cardio Cardio Narrative: Seen and evaluated at bedside The court recording monitor showed normal sinus Cardiac exam S1-S2 is regular Chest exam is clear auscultation bilateral Patient declined to be evaluated with JENNIFER. I discussed the need for evaluation and she insisted to refuse the JENNIFER evaluation. Assessment & Plan Assessment/Plan (1) JOSE (acute kidney injury): (2) Small bowel obstruction: (3) Smoking greater than 20 pack years: (4) COPD (chronic obstructive pulmonary disease): (5) HTN (hypertension): (6) MRSA bacteremia: PLAN: 63-year-old patient seen and evaluated at bedside today. Feeling better not in acute distress. Patient has anemia with a hemoglobin of 7.3 hematocrit 23.1 platelet count within normal She has MRSA bacteremia Etiology is not identified Cardiac care plan; Incidental finding of enlarged papillary muscle and LV On review of the transthoracic echocardiogram there is no valvular vegetation. ID seen the patient and started on antibiotic with vancomycin, I discussed need for evaluation by JENNIFER patient declined JENNIFER Will continue to follow-up clinically. 08/02/24 1228 Cosigner Signature (if applicable): CC: ~ Signed [facility]05-31-2025 Progress note Author Sid Hillman [facility] Note Date/Time August 01, 2024 4:03p [facility] Medical Records Department [address] [place] [address] Progress Note - Hospitalist 08/01/24 1601 MR#: [id number] Acct: [id number] Name: LEYDA LOPEZ Rep #:[id number] : 1960 63 From: Sid Rivera PCP: DALI RICE, VINYL DIPPER-C Status:ADM IN Location: [place] [id number] Hospitalist Note Patient was seen and examined in afternoon in PCU. She is more awake and alert. ABG is pending. On 3 L of oxygen. She had 450 mLurine output since morning. Blood pressure 165/107. On IV hydralazine as needed. IV labetalol as needed ordered. CT thoracic lumbar and CT chest are pending. Microbiology Past 72 Hours 07/29/24 22:30 Blood Culture (Wb) - Anticubital Left Bacteria Detection (PCR) - Final Meth. resistant Staph. aureus 07/29/24 22:30 Blood Culture (Wb) - Anticubital Left Blood Culture - Final Meth. resistant Staph. aureus 07/29/24 22:25 Blood Culture (Wb) - Right Hand Blood Culture - Final Staphylococcus aureus 07/30/24 12:50 Urine, Clean Catch Legionella Antigen - Final 07/30/24 12:50 Urine, Clean Catch Streptococcus pneumoniae Antigen (M - Final 07/30/24 12:20 Mucosa - Nasopharyngeal Respiratory Panel (PCR) - Final Laboratory Results 07/31/24 05:53: Magnesium 1.3 L 08/01/24 01:50: WBC 8.4, RBC 2.48 L, Hgb 7.3 L, Hct 23.1 L, MCV 93.1, MCH 29.4, MCHC 31.6 L, RDW Std Deviation 48.7 H, RDW Coeff of Alejandra 14.4, Plt Count 173, MPV10.9, Immature Gran % (Auto) 1.500 H, Neut % (Auto) 81.5 H, Lymph % (Auto) 10.2 L, [place] % (Auto) 6.5, Eos % (Auto) 0.2, Baso % (Auto) 0.1, Absolute Neuts (auto)6.9, Absolute Lymphs (auto) 0.86, Nucleated RBC % 0, Differential Comment SCANNED, Atypical Lymphocytes RARE, Sodium 143, Potassium 3.3, Chloride 110 H, Carbon Dioxide 20.6 L, Anion Gap 13, BUN 16, Creatinine 1.29 H, Estim Creat Clear Calc 37.45 L, Est GFR (MDRD) Non-Af 47 L, BUN/Creatinine Ratio 12.6, Glucose 142 H, Calcium 7.3 L, C- React Prot Ext Range 300.00 H, Vancomycin Ubnohi68.5 H 08/01/24 1603 <Electronically signed by Sid Hillman MD> Cosigner Signature (if applicable): CC: ~ Signed [facility] Work Phone: [phone]) 458-690505-31-2025 Radiology Diagnostic study note [facility] Imaging Services [address] [place] [address] Chest WITH Contrast MR#: [id number] Acct: [id number] Name: LEYDA LOPEZ Rep #: [id number] : 1960 F 63 From: Brayan Gamble MD PCP: DALI RICE, VINYL DIPPER-C Status: ADM IN Study:Chest WITH Contrast Date of Exam: 08/01/24 Exam# [id number] Ordering Dr: Yaneth Hillman MD PROCEDURE: CHEST WITH CONTRAST 08/01/2024 [...] right and small left pleural effusions. Right lowerlobe density with enhancement greater than paraspinal musculature favoring atelectasis. Trace left atelectasis. Both haveprogressed since the prior CT. Lingular subpleural 4.7 [...] the prior CT. Details above. Reading Location: [id number] CC: VINYL DIPPER-C DALI RICE; Dr. Sid Hillman MD ~ Coil Builder: Signed [facility]05-31-2025 Progress note Author Sam Graves [facility] Note Date/Time August 01, 2024 3:09p m [facility] Medical Records Department [address] [place] [address] Progress Note - Cardiology 08/01/24 1504 MR#: [id number] Acct: [id number] Name: LEYDA LOPEZ Rep #:[id number] : 1960 63 From: Sam Graves MD PCP: DON PAGANC Status:ADM IN Location: [place] [address] Subjective Subjective Seen and evaluated at bedside along with the nursing staff Febrile Tachycardic Objective Data Vital Signs: Vital Signs Temp Pulse Resp BP Pulse Ox O2 Del Method O2 Flow Rate 99.2 F H 92 22 H 165/107 H 93 Nasal Cannula 3 08/01/24 14:45 08/01/24 14:45 08/01/24 14:45 08/01/24 14:45 08/01/24 14:45 08/01/24 14:45 08/01/24 14:45 Oxygen Flow Rate (L/min) 3 Oxygen Delivery Method Nasal Cannula Weight: 142 lb 6.698 oz Body Mass Index (BMI) 30.8 Intake & Output: Intake and Output for Last 24 Hours 07/30/24 07/31/24 08/01/24 23:59 23:59 23:59 Intake Total 4126.67 / 4126.67 3848.32 / 3948.32 1915 / 1915 Output Total 500 / 500 700 / 700 550 / 550 Balance 3626.67 / 3626.67 3148.32 / 3248.32 1365 / 1365 Lab / Micro Data 08/01/24 01:50 08/01/24 01:50 Labs: Laboratory Results - last 24 hr 07/31/24 05:53: Magnesium 1.3 L 08/01/24 01:50: WBC 8.4, RBC 2.48 L, Hgb 7.3 L, Hct 23.1 L, MCV 93.1, MCH 29.4, MCHC 31.6 L, RDW Std Deviation 48.7 H, RDW Coeff of Alejandra 14.4, Plt Count 173, MPV10.9, Immature Gran % (Auto) 1.500 H, Neut % (Auto) 81.5 H, Lymph % (Auto) 10.2 L, [place] % (Auto) 6.5, Eos % (Auto) 0.2, Baso % (Auto) 0.1, Absolute Neuts (auto)6.9, Absolute Lymphs (auto) 0.86, Nucleated RBC % 0, Differential Comment SCANNED, Atypical Lymphocytes RARE, Sodium 143, Potassium 3.3, Chloride 110 H, Carbon Dioxide 20.6 L, Anion Gap 13, BUN 16, Creatinine 1.29 H, Estim Creat ClearCalc 37.45 L, Est GFR (MDRD) Non-Af 47 L, BUN/Creatinine Ratio 12.6, Glucose 142H, Calcium 7.3 L, C- React Prot Ext Range 300.00 H, Vancomycin Trough 17.5 H Micro: Microbiology 07/29/24 22:30 Blood Culture (Wb) - Anticubital Left Bacteria Detection (PCR) - Final Meth. resistant Staph. aureus 07/29/24 22:30 Blood Culture (Wb) - Anticubital Left Blood Culture - Final Meth. resistant Staph. aureus Cardiology Labs/Tests 07/31/24 05:53: Magnesium 1.3 L 08/01/24 01:50: WBC 8.4, RBC 2.48 L, Hgb 7.3 L, Hct 23.1 L, MCV 93.1, MCH 29.4, MCHC 31.6 L, Plt Count 173, MPV 10.9, Immature Gran % (Auto) 1.500 H, Neut % (Auto) 81.5 H, Lymph % (Auto) 10.2 L, [place] % (Auto) 6.5, Eos % (Auto) 0.2, Baso % (Auto) 0.1, Absolute Neuts (auto) 6.9, Nucleated RBC % 0, Sodium 143, Potassium 3.3, Chloride 110 H, Carbon Dioxide 20.6 L, Anion Gap 13, BUN 16, Creatinine 1.29 H, Est GFR (MDRD) Non-Af 47 L, BUN/Creatinine Ratio 12.6, Qzvydeq312 H, Calcium 7.3 L Rhythm: EKG: ECHO: Stress Test: Cardiac Cath: PCI: CT Surgery: Holter monitor: EPS: PPM: CXR: Chest CT Scan: Physical Exam Cardio Cardio Narrative: Cardiac exam S1-S2 is regular No systolic or diastolic murmur Chest examination diminished air entry bilateral with mild bilateral wheeze. Abdomen soft nontender and distended Lower extremity no lower extremity edema Assessment & Plan Assessment/Plan (1) Sepsis: (2) MRSA bacteremia: (3) JOSE (acute kidney injury): (4) Small bowel obstruction: (5) COPD (chronic obstructive pulmonary disease): PLAN: 63-year-old patient with the MRSA bacteremia. Evidently patient developedfever for 2 days spiking fever and the chest x-ray showed bilateral atelectasis blood culture growing gram-positive bacteremia with a PCR showing MRSA Patient has been on vancomycin IV And has been seen and followed by the ID. Transthoracic echocardiogram showed enlarged LV mass which is a large papillary muscle. Incidental finding In cardiac consultation requested by the ID as patient has MRSA bacteremia to assess for endocarditis. Evidently patient declined the JENNIFER on Saturday. Cardiac care plan; I discussed with the medical team and patient agreeable for JENNIFER on Saturday And patient to be transferred to the progressive care unit for monitoring/telemetry Will continue to monitor and follow-up clinically. 08/01/24 1509 <Electronically signed by Sam Graves MD> Cosigner Signature (if applicable): CC: ~ Signed [facility] Work Phone: [phone]) 106-928805-31-2025 Radiology Diagnostic study note [facility] Imaging Services [address] [place] [address] [id number] Spine Lumbar WITH Contrast MR#: [id number] Acct: [id number] Name: LEYDA LOPEZ Rep #: [id number] : 1960 F 63 From: Brayan Gamble MD PCP: DALI RICE, VINYL DIPPER-C Status: ADM IN Study:Spine Lumbar WITH Contrast Date of Exam : 08/01/24 Exam# [id number] Ordering Dr: Yaneth Hillman MD PROCEDURE: SPINE LUMBAR WITH CONTRAST [...] above. No definite abnormal enhancement. Reading Location: [id number] CC: VINYL DIPPER-C DALI RICE; Dr. Sid Hillman MD ~ Coil Builder: Signed [facility]05-31-2025 Progress note Author Sid Hillman [facility] Note Date/Time August 01, 2024 2:57p [facility] Medical Records Department [address] [place] [address] Progress Note - Hospitalist 08/01/24 0758 MR#: [id number] Acct: [id number] Name: LEYDA LOPEZ Joann Rep #:[id number] : 1960 63 From: Sid Rivera PCP: SHMUEL PAGAN Status:ADM IN [id number] Reason for Visit Reason for Visit: Diagnoses Sepsis, unspecified organism (07/26/24) Methicillin resistant Staphylococcus aureus infection as the cause of diseases classified elsewhere (07/26/24) Nicotine dependence, cigarettes, uncomplicated (07/26/24) Chronic obstructive pulmonary disease, unspecified (07/26/24) Unspecified intestinal obstruction, unspecified as to partial versus complete obstruction (07/26/24) Rheumatoid arthritis, unspecified (07/26/24) Acute kidney failure, unspecified (07/26/24) Bacteremia (07/26/24) Objective Data Objective Data Vital Signs: Vital Signs Temp Pulse Resp BP Pulse Ox O2 Del Method O2 Flow Rate 98.8 F 84 20 H 144/89 H 96 Nasal Cannula 3 08/01/24 03:11 08/01/24 03:11 08/01/24 03:11 08/01/24 03:11 08/01/24 03:11 08/01/24 03:11 08/01/24 03:11 Oxygen Flow Rate (L/min) 3 Oxygen Delivery Method Nasal Cannula Weight: 142 lb 6.698 oz Body Mass Index (BMI) 30.8 Intake & Output: Intake and Output for Last 24 Hours 07/30/24 07/31/24 08/01/24 23:59 23:59 23:59 Intake Total 4126.67 / 4126.67 3848.32 / 3948.32 415 / 415 Output Total 500 / 500 700 / 700 425 / 425 Balance 3626.67 / 3626.67 3148.32 / 3248.32 -10 / -10 Lab / Micro Data 08/01/24 01:50 08/01/24 01:50 Labs: Laboratory Results - last 24 hr 07/31/24 05:53: Magnesium 1.3 L 08/01/24 01:50: WBC 8.4, RBC 2.48 L, Hgb 7.3 L, Hct 23.1 L, MCV 93.1, MCH 29.4, MCHC 31.6 L, RDW Std Deviation 48.7 H, RDW Coeff of Alejandra 14.4, Plt Count 173, MPV10.9, Immature Gran % (Auto) 1.500 H, Neut % (Auto) 81.5 H, Lymph % (Auto) 10.2 L, [place] % (Auto) 6.5, Eos % (Auto) 0.2, Baso % (Auto) 0.1, Absolute Neuts (auto)6.9, Absolute Lymphs (auto) 0.86, Nucleated RBC % 0, Differential Comment SCANNED, Atypical Lymphocytes RARE, Sodium 143, Potassium 3.3, Chloride 110 H, Carbon Dioxide 20.6 L, Anion Gap 13, BUN 16, Creatinine 1.29 H, Estim Creat ClearCalc 37.45 L, Est GFR (MDRD) Non-Af 47 L, BUN/Creatinine Ratio 12.6, Glucose 142H, Calcium 7.3 L, Vancomycin Trough 17.5 H Micro: Microbiology 07/29/24 22:25 Blood Culture (Wb) - Right Hand Blood Culture - Final Staphylococcus aureus 07/29/24 22:30 Blood Culture (Wb) - Anticubital Left Bacteria Detection (PCR) - Final Meth. resistant Staph. aureus 07/29/24 22:30 Blood Culture (Wb) - Anticubital Left Blood Culture - Preliminary Meth. resistant Staph. aureus 07/30/24 12:50 Urine, Clean Catch Legionella Antigen - Final 07/30/24 12:50 Urine, Clean Catch Streptococcus pneumoniae Antigen (M - Final 07/30/24 12:20 Mucosa - Nasopharyngeal Respiratory Panel (PCR) - Final Physical Exam Narrative Seen and examined. Patient in mild short of breath and tachycardic, 126/min, RR 24/min. Repeat blood Tmax 103.0 Fahrenheit. Patient looks dehydrated with dry parched buccal mucosa. Patient is still usingthe nasal dark yellow/mustard colored. 1 L IV fluid Ringer lactate ordered. Physical exam General: Mild lethargic. HEENT: Atraumatic, PERRLA, EOMI, Normocephalic. Oral: No Gingival or Mucosal Lesions/ Ulcerations Neck: Supple, No JVD, Negative Carotid Bruits Chest wall/Lungs: Air entry diminished in bilateral lung bases. Mild bilateralwheezing Cardiovascular: Sinus tachycardic, Normal S1,S2, No M/G/R Abdomen: Bowel Sounds Present, Soft, Non Tender, Non-Distended : No dysuria. No renal angle tenderness. No suprapubic tenderness. Extremities: Swelling and tenderness of the right antecubital region. No axillary lymph node palpable. No pedal edema Skin: Redness over right antecubital region, possible superficial thrombophlebitis, IV line Musculoskeletal: No Tenderness to Palpation of Joints or Extremities Neurological: Cranial nerves II-XII grossly intact, DTR 2+/4. No acute focal neurological deficit. Psych/Mental Status: Flat affect Assessment & Plan Assessment/Plan (1) Small bowel obstruction: PLAN: Plan #Small bowel obstruction * Admitted with complaint of abdominal pain and distention. CT of the abdomen showed a small bowel obstruction. * Resolved. NG tube is now out and she tolerated regular diet. * She has small bowel follow-through yesterday which showed no evidence of obstruction. 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 * Chest x-ray done overnight showed bibasilar atelectasis versus effusion and infection cannot be excluded * Urinalysis showed no evidence of UTI. * blood cultures growing gram positive bacteremia * Blood PCR showing MRSA * Vancomycin IV added on. IV Zosyn discontinued. * 2D echo showed a large mass noted on the left ventricular/papillary muscle. EF is 55 to 60%. This is concerning for infective endocarditis. * ID on board and cardiology was consulted per ID. Patient refusing a JENNIFER. She was also complaining of lower back pain so I did order thoracic MRI but patient is also refusing thoracic MRI. * Continue on IV vancomycin for now. * P.o. Tylenol every 6 hours as needed. * per ID, may need transfer to Tertiary facility for CT surgery evaluation if mass is >1cm. 07/14: Patient is tachycardic 126, tachypneic, febrile, BP 144/130. 1 L Ringer lactate ordered. Monitor intake and output. DuoNeb ordered. Tylenol. Patienton IV antibiotic. Plan for JENNIFER on Saturday. Severe anemia: H&H 7.3/21%. Dropped from 9.1 g on 07/30. MCV normal. Probably inflammatory #JOSE * resolved. * #GERD: PPI #Hypokalemia: potassium is 2.8. Will replace. Check magnesium. #History of heart failure preserved ejection fraction: * Not in exacerbation. has known EF of 55% * Breathing treatments bronchodilators. #COPD: 08/01: Patient has shortness of breath, wheezing and dyspnea, possible COPD exacerbation. Scheduled DuoNeb and IV Solu-Medrol ordered. #Anxiety and depression: on buspirone and amitryptiline #Hypertension: lisinopril resumed. IV hydralazine prn #Depression: on buspirone and amitryptiline. as well as lexapro #History of migraines: stable. Not having any active migraine now. DVT prophylaxis: lovenox Charges/Coding Visit Charges Inpatient E&M: 53236 Subs Hosp L2 08/01/24 0957 <Electronically signed by Sid Hillman MD> Cosigner Signature (if applicable): CC: ~ Signed ADDENDUM by Dr. Sid Hillman MD on 08/01/24 at 1456 Addendum Patient continued to have tachypnea. On 3 L of oxygen. Heart rate improved to 92 per blood. Discussed with the linotype machinist and ID. With the opinion of tachycardia in the morning, fever 100 3 in the morning although fever has subsided to 99 point 2 in the afternoon but I agreed to move to her PCU. She has refusing to MRI therefore CT thoracic spine and lumbar spine with IV contrast ordered including CT chest without contrast to find the source of infection. As per the linotype machinist she has left ventricular papillary muscle mass but does not look like vegetation or endocarditis. 08/01/24 1456<Electronically signed by Sid Hillman MD> Cosigner Signature (if applicable): cc: ~* Signed [facility] Work Phone: 1(371) 850-394705-31-2025 Radiology Diagnostic study note [facility] Imaging Services [address] [place] [address] [id number] Spine Thoracic WITH Contrast MR#: [id number] Acct: [id number] Name: LEYDA LOPEZ Rep #: [id number] : 1960 F 63 From: Brayan Gamble MD PCP: DALI RICE VINYL DIPPER-C Status: ADM IN Study:Spine Thoracic WITH Contrast Date of Ex am: 08/01/24 Exam# [id number] Ordering Dr: Yaneth Hillman MD PROCEDURE: SPINE THORACIC WITH CONTRAST [...] FINDINGS: Alignment: Mildly exaggerated thoracic kyphosis. Bones: Qlzelisi-iz-yqfapz discogenic degenerative changes of the visualized spine. [...] to exclude a neoplastic process. Reading Location: [id number] CC: VINYL DIPPER-C DALI RICE; Dr. Sid Hillman MD ~ Coil Builder: Signed [facility]05-31-2025 Progress note [facility] Medical Records Department [address] [place] [address] Progress Note - Hospitalist 08/01/24 1601 MR#: [id number] Acct: [id number] Name: LEYDA LOPEZ Rep #:[id number] : 1960 63 From: Sid Rivera PCP: SHMUEL PAGAN Status:ADM IN Location: [facility] [place] [address] Hospitalist Note Patient was seen and examined in afternoon in PCU. She is more awake and alert. ABG is pending. On 3 L of oxygen. She had 450 mLurine output since morning. Blood pressure 165/107. On IV hydralazine as needed. IV labetalol as needed ordered. CT thoracic lumbar and CT chest are pending. Microbiology Past 72 Hours 07/29/24 22:30 Blood Culture (Wb) - Anticubital Left Bacteria Detection (PCR) - Final Meth. resistant Staph. aureus 07/29/24 22:30 Blood Culture (Wb) - Anticubital Left Blood Culture - Final Meth. resistant Staph. aureus 07/29/24 22:25 Blood Culture (Wb) - Right Hand Blood Culture - Final Staphylococcus aureus 07/30/24 12:50 Urine, Clean Catch Legionella Antigen - Final 07/30/24 12:50 Urine, Clean Catch Streptococcus pneumoniae Antigen (M - Final 07/30/24 12:20 Mucosa - Nasopharyngeal Respiratory Panel (PCR) - Final Laboratory Results 07/31/24 05:53: Magnesium 1.3 L 08/01/24 01:50: WBC 8.4, RBC 2.48 L, Hgb 7.3 L, Hct 23.1 L, MCV 93.1, MCH 29.4, MCHC 31.6 L, RDW Std Deviation 48.7 H, RDW Coeff of Alejandra 14.4, Plt Count 173, MPV10.9, Immature Gran % (Auto) 1.500 H, Neut % (Auto) 81.5 H, Lymph % (Auto) 10.2 L, [place] % (Auto) 6.5, Eos % (Auto) 0.2, Baso % (Auto) 0.1, Absolute Neuts (auto)6.9, Absolute Lymphs (auto) 0.86, Nucleated RBC % 0, Differential Comment SCANNED, Atypical Lymphocytes RARE, Sodium 143, Potassium 3.3, Chloride 110 H, Carbon Dioxide 20.6 L, Anion Gap 13, BUN 16, Creatinine 1.29 H, Estim Creat Clear Calc 37.45 L, Est GFR (MDRD) Non-Af 47 L, BUN/Creatinine Ratio 12.6, Glucose 142 H, Calcium 7.3 L, C-React Prot Ext Range 300.00 H, Vancomycin Tr ough17.5 H 08/01/24 1603 Cosigner Signature (if applicable): CC: ~ Signed [facility]05-31-2025 Progress note [facility] Medical Records Department [address] [place] [address] Progress Note - Cardiology 08/01/24 1504 MR#: [id number] Acct: [id number] Name: LEYDA LOPEZ Rep #:[id number] : 1960 63 From: Sam Graves MD PCP: DALI RICE, VINYL DIPPER-C Status:ADM IN Location: [place] [address] Subjective Subjective Seen and evaluated at bedside along with the nursing staff Febrile Tachycardic Objective Data Vital Signs: Vital Signs Temp Pulse Resp BP Pulse Ox O2 Del Method O2 Flow Rate 99.2 F H 92 22 H 165/107 H 93 Nasal Cannula 3 08/01/24 14:45 08/01/24 14:45 08/01/24 14:45 08/01/24 14:45 08/01/24 14:45 08/01/24 14:45 08/01/24 14:45 Oxygen Flow Rate (L/min) 3 Oxygen Delivery Method Nasal Cannula Weight: 142 lb 6.698 oz Body Mass Index (BMI) 30.8 Intake & Output: Intake and Output for Last 24 Hours 07/30/24 07/31/24 08/01/24 23:59 23:59 23:59 Intake Total 4126.67 / 4126.67 3848.32 / 3948.32 1915 / 1915 Output Total 500 / 500 700 / 700 550 / 550 Balance 3626.67 / 3626.67 3148.32 / 3248.32 1365 / 1365 Lab / Micro Data 08/01/24 01:50 08/01/24 01:50 Labs: Laboratory Results - last 24 hr 07/31/24 05:53: Magnesium 1.3 L 08/01/24 01:50: WBC 8.4, RBC 2.48 L, Hgb 7.3 L, Hct 23.1 L, MCV 93.1, MCH 29.4, MCHC 31.6 L, RDW Std Deviation 48.7 H, RDW Coeff of Alejandra 14.4, Plt Count 173, MPV10.9, Immature Gran % (Auto) 1.500 H, Neut % (Auto) 81.5 H, Lymph % (Auto) 10.2 L, [place] % (Auto) 6.5, Eos % (Auto) 0.2, Baso % (Auto) 0.1, Absolute Neuts (auto)6.9, Absolute Lymphs (auto) 0.86, Nucleated RBC % 0, Differential Comment SCANNED, Atypical Lymphocytes RARE, Sodium 143, Potassium 3.3, Chloride 110 H, Carbon Dioxide 20.6 L, Anion Gap 13, BUN 16, Creatinine 1.29 H, Estim Creat ClearCalc 37.45 L, Est GFR (MDRD) Non-Af 47 L, BUN/Creatinine Ratio 12.6, Glucose 142H, Calcium 7.3 L, C-React Prot Ext Range 300.00 H, Vancomycin Trough 17.5 H Micro: Microbiology 07/29/24 22:30 Blood Culture (Wb) - Anticubital Left Bacteria Detection (PCR) - Final Meth. resistant Staph. aureus 07/29/24 22:30 Blood Culture (Wb) - Anticubital Left Blood Culture - Final Meth. resistant Staph. aureus Cardiology Labs/Tests 07/31/24 05:53: Magnesium 1.3 L 08/01/24 01:50: WBC 8.4, RBC 2.48 L, Hgb 7.3 L, Hct 23.1 L, MCV 93.1, MCH 29.4, MCHC 31.6 L, Plt Count 173, MPV 10.9, Immature Gran % (Auto) 1.500 H, Neut % (Auto) 81.5 H, Lymph % (Auto) 10.2 L, [place]% (Auto) 6.5, Eos % (Auto) 0.2, Baso % (Auto) 0.1, Absolute Neuts (auto) 6.9, Nucleated RBC % 0, Sodium 143, Potassium 3.3, Chloride 110 H, Carbon Dioxide 20.6 L, Anion Gap 13, BUN 16, Creatinine 1.29 H, Est GFR (MDRD) Non-Af 47 L, BUN/Creatinine Ratio 12.6, Tfeiqtp257 H, Calcium 7.3 L Rhythm: EKG: ECHO: Stress Test: Cardiac Cath: PCI: CT Surgery: Holter monitor: EPS: PPM: CXR: Chest CT Scan: Physical Exam Cardio Cardio Narrative: Cardiac exam S1-S2 is regular No systolic or diastolic murmur Chest examination diminished air entry bilateral with mild bilateral wheeze. Abdomen soft nontender and distended Lower extremity no lower extremity edema Assessment & Plan Assessment/Plan (1) Sepsis: (2) MRSA bacteremia: (3) JOSE (acute kidney injury): (4) Small bowel obstruction: (5) COPD (chronic obstructive pulmonary disease): PLAN: 63-year-old patient with the MRSA bacteremia. Evidently patient developedfever for 2 days spiking fever and the chest x-ray showed bilateral atelectasis blood culture growing gram-positive bacteremia with a PCR showing MRSA Patient has been on vancomycin IV And has been seen and followed by the ID. Transthoracic echocardiogram showed enlarged LV mass which is a large papillary muscle. Incidental finding In cardiac consultation requested by the ID as patient has MRSA bacteremia to assess for endocarditis. Evidently patient declined the JENNIFER on Saturday. Cardiac care plan; I discussed with the medical team and patient agreeable for JENNIFER on Saturday And patient to be transferred to the progressive care unit for monitoring/telemetry Will continue to monitor and follow-up clinically. 08/01/24 5797 Cosigner Signature (if applicable): CC: ~ Signed [facility]05-31-2025 Progress note [facility] Medical Records Department [address] [place] [address] Progress Note - Hospitalist 08/01/24 8732 MR#: [id number] Acct: [id number] Name: LEYDA LOPEZ Rep #:[id number] : 1960 63 From: Sid Rivera PCP: DALI RICE, VINYL DIPPER-C Status:ADM IN Location: [place] [address] Reason for Visit Reason for Visit: Diagnoses Sepsis, unspecified organism (07/26/24) Methicillin resistant Staphylococcus aureus infection as the cause of diseases classified elsewhere(07/26/24) Nicotine dependence, cigarettes, uncomplicated (07/26/24) Chronic obstructive pulmonary disease, unspecified (07/26/24) Unspecified intestinal obstruction, unspecified as to partial versus complete obstruction (07/26/24) Rheumatoid arthritis, unspecified (07/26/24) Acute kidney failure, unspecified (07/26/24) Bacteremia (07/26/24) Objective Data Objective Data Vital Signs: Vital Signs Temp Pulse Resp BP Pulse Ox O2 Del Method O2 Flow Rate 98.8 F 84 20 H 144/89 H 96 Nasal Cannula 3 08/01/24 03:11 08/01/24 03:11 08/01/24 03:11 08/01/24 03:11 08/01/24 03:11 08/01/24 03:11 08/01/24 03:11 Oxygen Flow Rate (L/min) 3 Oxygen Delivery Method Nasal Cannula Weight: 142 lb 6.698 oz Body Mass Index (BMI) 30.8 Intake & Output: Intake and Output for Last 24 Hours 07/30/24 07/31/24 08/01/24 23:59 23:59 23:59 Intake Total 4126.67 / 4126.67 3848.32 / 3948.32 415 / 415 Output Total 500 / 500 700 / 700 425 / 425 Balance 3626.67 / 3626.67 3148.32 / 3248.32 -10 / -10 Lab / Micro Data 08/01/24 01:50 08/01/24 01:50 Labs: Laboratory Results - last 24 hr 07/31/24 05:53: Magnesium 1.3 L 08/01/24 01:50: WBC 8.4, RBC 2.48 L, Hgb 7.3 L, Hct 23.1 L, MCV 93.1, MCH 29.4, MCHC 31.6 L, RDW Std Deviation 48.7 H, RDW Coeff of Alejandra 14.4, Plt Count 173, MPV10.9, Immature Gran % (Auto) 1.500 H, Neut % (Auto) 81.5 H, Lymph % (Auto) 10.2 L, [place] % (Auto) 6.5, Eos % (Auto) 0.2, Baso % (Auto) 0.1, Absolute Neuts (auto)6.9, Absolute Lymphs (auto) 0.86, Nucleated RBC % 0, Differential Comment SCANNED, Atypical Lymphocytes RARE, Sodium 143, Potassium 3.3, Chloride 110 H, Carbon Dioxide 20.6 L, Anion Gap 13, BUN 16, Creatinine 1.29 H, Estim Creat ClearCalc 37.45 L, Est GFR (MDRD) Non-Af 47 L, BUN/Creatinine Ratio 12.6, Glucose 142H, Calcium 7.3 L, Vancomycin Trough 17.5 H Micro: Microbiology 07/29/24 22:25 Blood Culture (Wb) - Right Hand Blood Culture - Final Staphylococcus aureus 07/29/24 22:30 Blood Culture (Wb) - Anticubital Left Bacteria Detection (PCR) - Final Meth. resistant Staph. aureus 07/29/24 22:30 Blood Culture (Wb) - Anticubital Left Blood Culture - Preliminary Meth. resistant Staph. aureus 07/30/24 12:50 Urine, Clean Catch Legionella Antigen - Final 07/30/24 12:50 Urine, Clean Catch Streptococcus pneumoniae Antigen (M - Final 07/30/24 12:20 Mucosa - Nasopharyngeal Respiratory Panel (PCR) - Final Physical Exam Narrative Seen and examined. Patient in mild short of breath and tachycardic, 126/min, RR 24/min. Repeat blood Tmax 103.0 Fahrenheit. Patient looks dehydrated with dry parched buccal mucosa. Patient is still usingthe nasal dark yellow/mustard colored. 1 L IV fluid Ringer lactate ordered. Physical exam General: Mild lethargic. HEENT: Atraumatic, PERRLA, EOMI, Normocephalic. Oral: No Gingival or Mucosal Lesions/ Ulcerations Neck: Supple, No JVD, Negative Carotid Bruits Chest wall/Lungs: Air entry diminished in bilateral lung bases. Mild bilateralwheezing Cardiovascular: Sinus tachycardic, Normal S1,S2, No M/G/R Abdomen: Bowel Sounds Present, Soft, Non Tender, Non-Distended : No dysuria. No renal angle tenderness. No suprapubic tenderness. Extremities: Swelling and tenderness of the right antecubital region. No axillary lymph node palpable. No pedal edema Skin: Redness over right antecubital region, possible superficial thrombophlebitis, IV line Musculoskeletal: No Tenderness to Palpation of Joints or Extremities Neurological: Cranial nerves II-XII grossly intact, DTR 2+/4. No acute focal neurological deficit. Psych/Mental Status: Flat affect Assessment & Plan Assessment/Plan (1) Small bowel obstruction: PLAN: Plan #Small bowel obstruction * Admitted with complaint of abdominal pain and distention. CT of the abdomen showed a small bowel obstruction. * Resolved. NG tube is now out and she tolerated regular diet. * She has small bowel follow-through yesterday which showed no evidence of obstruction. 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 * Chest x-ray done overnight showed bibasilar atelectasis versus effusion and infection cannot be excluded * Urinalysis showed no evidence of UTI. * blood cultures growing gram positive bacteremia * Blood PCR showing MRSA * Vancomycin IV added on. IV Zosyn discontinued. * 2D echo showed a large mass noted on the left ventricular/papillary muscle. EF is 55 to 60%. Thisis concerning for infective endocarditis. * ID on board and cardiology was consulted per ID. Patient refusing a JENNIFER. She was also complainingof lower back pain so I did order thoracic MRI but patient is also refusing thoracic MRI. * Continue on IV vancomycin for now. * P.o. Tylenol every 6 hours as needed. * per ID, may need transfer to Tertiary facility for CT surgery evaluation if mass is >1cm. 07/14: Patient is tachycardic 126, tachypneic, febrile, BP 144/130. 1 L Ringer lactate ordered. Monitor intake and output. DuoNeb ordered. Tylenol. Patienton IV antibiotic. Plan for JENNIFER on Saturday. Severe anemia: H&H 7.3/21%. Dropped from 9.1 g on 07/30. MCV normal. Probably inflammatory #JOSE * resolved. * #GERD: PPI #Hypokalemia: potassium is 2.8. Will replace. Check magnesium. #History of heart failure preserved ejection fraction: * Not in exacerbation. has known EF of 55% * Breathing treatments bronchodilators. #COPD: 08/01: Patient has shortness of breath, wheezing and dyspnea, possible COPD exacerbation. Scheduled DuoNeb and IV Solu-Medrol ordered. #Anxiety and depression: on buspirone and amitryptiline #Hypertension: lisinopril resumed. IV hydralazine prn #Depression: on buspirone and amitryptiline. as well as lexapro #History of migraines: stable. Not having any active migraine now. DVT prophylaxis: lovenox Charges/Coding Visit Charges Inpatient E&M: 71739 Subs Hosp L2 08/01/24 0957 Cosigner Signature (if applicable): CC: ~ Signed ADDENDUM by Dr. Sid Hillman MD on 08/01/24 at 1456 Addendum Patient continued to have tachypnea. On 3 L of oxygen. Heart rate improved to 92 per blood. Discussed with the linotype machinist and ID. With the opinion of tachycardia in the morning, fever 100 3 in the morning although fever has subsided to 99 point 2 in the afternoon but I agreed to move to her PCU. She has refusing to MRI therefore CT thoracic spine and lumbar spine with IV contrast ordered including CT chest without contrast to find the source of infection. As per the linotype machinist she has leftventricular papillary muscle mass but does not look like vegetation or endocarditis. 08/01/24 1456 Cosigner Signature (if applicable): cc: ~* Signed [facility]05-31-2025 Progress note Author Dolly Daniels [facility] Note Date/Time July 31, 2024 11:03 pm [facility] Medical Records Department [address] [place] [address] Progress Note 07/31/24 1440 MR#: [id number] Acct: [id number] Name: LEYDA LOPEZ Rep #:[id number] : 1960 63 From: Dolly Daniels MD PCP: DALI RICE, VINYL DIPPER-C Status:ADM IN Location: [place] [address] Subjective Subjective Patient seen and examined. She was lying quietly in bed. She had no active complaints. She denied any fever, chills, cough, chest pain, palpitations, dizziness, nausea vomiting or any other symptoms. Review of systems otherwise negative. 2D echo done yesterday showed a large mass on the left ventricular papillary muscle concerning for vegetation. ID on board. Objective Data Objective Data Vital Signs: Vital Signs Temp Pulse Resp BP Pulse Ox O2 Del Method O2 Flow Rate 100.3 F H 79 18 150/82 H 95 Nasal Cannula 3 07/31/24 09:00 07/31/24 09:00 07/31/24 09:00 07/31/24 09:00 07/31/24 13:11 07/31/24 13:11 07/31/24 13:11 Oxygen Flow Rate (L/min) 3 Oxygen Delivery Method Nasal Cannula Weight: 142 lb 6.698 oz Body Mass Index (BMI) 30.8 Intake & Output: Intake and Output for Last 24 Hours 07/29/24 07/30/24 07/31/24 23:59 23:59 23:59 Intake Total 4316.67 / 4316.67 4126.67 / 4126.67 3131.24 / 3131.24 Output Total 500 / 500 700 / 700 Balance 4316.67 / 4316.67 3626.67 / 3626.67 2431.24 / 2431.24 Lab / Micro Data 07/31/24 05:53 07/31/24 05:53 Labs: Laboratory Results - last 24 hr 07/31/24 05:53: WBC 8.4, RBC 2.69 L, Hgb 8.1 L, Hct 24.5 L, MCV 91.1, MCH 30.1, MCHC 33.1, RDW Std Deviation 46.5 H, RDW Coeff of Alejandra 14.0, Plt Count 150, MPV 10.7, Immature Gran % (Auto) 1.800 H, Neut % (Auto) 77.2 H, Lymph % (Auto) 9.4 L, [place] % (Auto) 10.9 H, Eos % (Auto) 0.2, Baso % (Auto) 0.5, Absolute Neuts (auto) 6.5, Absolute Lymphs (auto) 0.79 L, Nucleated RBC % 0, Sodium 143, Potassium 2.8 L, Chloride 107, Carbon Dioxide 24.3, Anion Gap 12, BUN 13, Creatinine 1.08, Estim Creat Clear Calc 44.73 L, Est GFR (MDRD) Non-Af 58 L, BUN/Creatinine Ratio 11.7, Glucose 101 H, Calcium 7.3 L Micro: Microbiology 07/29/24 22:25 Blood Culture (Wb) - Right Hand Blood Culture - Final Staphylococcus aureus 07/29/24 22:30 Blood Culture (Wb) - Anticubital Left Bacteria Detection (PCR) - Final Meth. resistant Staph. aureus 07/29/24 22:30 Blood Culture (Wb) - Anticubital Left Blood Culture - Preliminary Meth. resistant Staph. aureus 07/30/24 12:50 Urine, Clean Catch Legionella Antigen - Final 07/30/24 12:50 Urine, Clean Catch Streptococcus pneumoniae Antigen (M - Final 07/30/24 12:20 Mucosa - Nasopharyngeal Respiratory Panel (PCR) - Final Radiography Diagnostic Testing: Radiology Impression Echocardiogram 07/30/24 13:15 Interpretation Summary Large mass noted in the LV/large papillary muscle The estimated ejection fraction is 55-60 %. No previous study to compare Recommendation; consider JENNIFER evaluation Ordering Physician: Dolly Daniels Referring Physician: DALI RICE Performed By: Susanna Walker and Student Physical Exam Const alert, oriented x3 and no apparent distress Constitutional Narrative: frail General Appearance: cooperative and well developed HEENT normocephalic, head/scalp atraumatic, moist oral mucous membranes and oropharynxnormal Eyes PERRL and EOMs intact bilaterally Neck no lymphadenopathy, supple and no JVD Neck Narrative: No thyromegaly Lymph Lymphatic: no lymphadenopathy noted and no lymphedema noted Resp normal respiratory effort, normal air movement, no retractions, no use of accessory muscles and clear to auscultation bilaterally Cardio regular rate, regular rhythm, S1 normal heart sound, S2 normal heart sound and no murmurs Cardio Narrative: tachycardic GI GI Narrative: abdomen soft, nontender, no organomegaly. Extremity normal to inspection, normal capillary refill, no clubbing, cyanosis or edema and no calf tenderness General Extremity: no tenderness to palpation of joints or extremities Skin General Skin Exam: no breakdown Neuro CN's II-XII intact bilaterally, moves all extremities, no focal motor deficits and no sensory deficits noted Sensorium / Orientation: awake and alert Motor Exam: strength 5/5 throughout and general weakness Psych thought process normal, cooperative and affect normal Appearance: appropriate Activity / Motor Behavior: restless Assessment & Plan Assessment/Plan (1) Small bowel obstruction: PLAN: Plan #Small bowel obstruction * Admitted with complaint of abdominal pain and distention. CT of the abdomen showed a small bowel obstruction. * Resolved. NG tube is now out and she tolerated regular diet. * She has small bowel follow-through yesterday which showed no evidence of obstruction. 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 * Chest x-ray done overnight showed bibasilar atelectasis versus effusion and infection cannot be excluded * Urinalysis showed no evidence of UTI. * blood cultures growing gram positive bacteremia * Blood PCR showing MRSA * Vancomycin IV added on. IV Zosyn discontinued. * 2D echo showed a large mass noted on the left ventricular/papillary muscle. EF is 55 to 60%. This is concerning for infective endocarditis. * ID on board and cardiology was consulted per ID. Patient refusing a JENNIFER. She was also complaining of lower back pain so I did order thoracic MRI but patient is also refusing thoracic MRI. * Continue on IV vancomycin for now. * P.o. Tylenol every 6 hours as needed. * per ID, may need transfer to Tertiary facility for CT surgery evaluation if mass is >1cm. * #JOSE * resolved. * #GERD: PPI #Hypokalemia: potassium is 2.8. Will replace. Check magnesium. #History of heart failure preserved ejection fraction: * Not in exacerbation. has known EF of 55% * Breathing treatments bronchodilators. #COPD: Not in exacerbation. Breathing treatment with bronchodilators. #Anxiety and depression: on buspirone and amitryptiline #Hypertension: lisinopril resumed. IV hydralazine prn #Depression: on buspirone and amitryptiline. as well as lexapro #History of migraines: stable. Not having any active migraine now. DVT prophylaxis: lovenox Charges/Coding Visit Charges Inpatient E&M: 23855 Subs Hosp L3 07/31/24 1743 <Electronically signed by Dolly Daniels MD> Dolly Daniels MD Cosigner Signature (if applicable): CC: ~ Signed ADDENDUM by Dr. Dolly Daniels MD on 07/31/24 at 1818 Addendum I discussed with Dr. Higgins about the papillary mass in the left ventricle. He said he is not sure that it is endocarditis and that a JENNIFER would better characterize it. However patient is refusing JENNIFER. He he said it was about a 1.2 cm mass. I discussed with Dr. White who said in light of the size of the lesion and had been MRSA positive in her blood, was presumptive endocarditisuntil proven otherwise. Based on the size he would recommend that patient be transferred to tertiary care facility for evaluation by CT surgery. Transfer initiated to [facility]. Patient agreeable to transfer. I did try to call her significant other Linwood ([phone]) at 18:18 to update him. He did not take the call and his voicemail was full so no message could be left. Patient'snurse Crystal updated. 07/31/241817 <Electronically signed by Dolly ricketts MD> Date _ Dloly Daniels MD Cosigner Signature (if applicable): Date cc: ~* Signed ADDENDUM by Dr. Dolly Daniels MD on 07/31/24 at 2303 Addendum I spoke to CT surgeon documentation improvement specialist at [facility]. He stated that they would need to get a JENNIFER to determine if the mass was a vegetation before any surgery could be considered. Since iliana was refusing a JENNIFER, he felt there was limited help they oculd offer her. Transfer was therefore declined with the advice that patient should get a JENNIFER first, which could be done in [facility]. I spoke to patient and updated her; I counseled her about hte need to have the JENNIFER as without that,it would be difficult for her to be accepted by CT surgery. Patient now agreeable to doing hte JENNIFER. Dr Higgins informed, and he said he agreed that patinet needed JENNIFER to better characterise hte mass as he could not be sure it was a vegetation. Plan therefor is for JENNIFER on Saturday. 07/31/242302 <Electronically signed by Dolly ricketts MD> Date _ Dolly Daniels MD Cosigner Signature (if applicable): Date cc: ~* Signed [facility] Work Phone: 1(860) 716-717905-30-2025 Progress note [facility] Medical Records Department [address] [place] [address] Progress Note 07/31/24 1440 MR#: [id number] Acct: [id number] Name: LEYDA LOPEZ Rep #:[id number] : 1960 63 From: Dolly Daniels MD PCP: DALI RICE VINYL DIPPER-C Status:ADM IN Location: [place] [address]-1 Subjective Subjective Patient seen and examined. She was lying quietly in bed. She had no active complaints. She denied any fever, chills, cough, chest pain, palpitations, dizziness, nausea vomiting or any other symptoms.Review of systems otherwise negative. 2D echo done yesterday showed a large mass on the left ventricular papillary muscle concerning for vegetation. ID on board. Objective Data Objective Data Vital Signs: Vital Signs Temp Pulse Resp BP Pulse Ox O2 Del Method O2 Flow Rate 100.3 F H 79 18 150/82 H 95 Nasal Cannula 3 07/31/24 09:00 07/31/24 09:00 07/31/24 09:00 07/31/24 09:00 07/31/24 13:11 07/31/24 13:11 07/31/24 13:11 Oxygen Flow Rate (L/min) 3 Oxygen Delivery Method Nasal Cannula Weight: 142 lb 6.698 oz Body Mass Index (BMI) 30.8 Intake & Output: Intake and Output for Last 24 Hours 07/29/24 07/30/24 07/31/24 23:59 23:59 23:59 Intake Total 4316.67 / 4316.67 4126.67 / 4126.67 3131.24 / 3131.24 Output Total 500 / 500 700 / 700 Balance 4316.67 / 4316.67 3626.67 / 3626.67 2431.24 / 2431.24 Lab / Micro Data 07/31/24 05:53 07/31/24 05:53 Labs: Laboratory Results - last 24 hr 07/31/24 05:53: WBC 8.4, RBC 2.69 L, Hgb 8.1 L, Hct 24.5 L, MCV 91.1, MCH 30.1, MCHC 33.1, RDW Std Deviation 46.5 H, RDW Coeff of Alejandra 14.0, Plt Count 150, MPV 10.7, Immature Gran % (Auto) 1.800 H, Neut % (Auto) 77.2 H, Lymph % (Auto) 9.4 L, [place] % (Auto) 10.9 H, Eos % (Auto) 0.2, Baso % (Auto) 0.5,Absolute Neuts (auto) 6.5, Absolute Lymphs (auto) 0.79 L, Nucleated RBC % 0, Sodium 143, Potassium 2.8 L, Chloride 107, Carbon Dioxide 24.3, Anion Gap 12, BUN 13, Creatinine 1.08, Estim Creat Clear Calc 44.73 L, Est GFR (MDRD) Non-Af 58 L, BUN/Creatinine Ratio 11.7, Glucose 101 H, Calcium 7.3 L Micro: Microbiology 07/29/24 22:25 Blood Culture (Wb) - Right Hand Blood Culture - Final Staphylococcus aureus 07/29/24 22:30 Blood Culture (Wb) - Anticubital Left Bacteria Detection (PCR) - Final Meth. resistant Staph. aureus 07/29/24 22:30 Blood Culture (Wb) - Anticubital Left Blood Culture - Preliminary Meth. resistant Staph. aureus 07/30/24 12:50 Urine, Clean Catch Legionella Antigen - Final 07/30/24 12:50 Urine, Clean Catch Streptococcus pneumoniae Antigen (M - Final 07/30/24 12:20 Mucosa - Nasopharyngeal Respiratory Panel (PCR) - Final Radiography Diagnostic Testing: Radiology Impression Echocardiogram 07/30/24 13:15 Interpretation Summary Large mass noted in the LV/large papillary muscle The estimated ejection fraction is 55-60 %. No previous study to compare Recommendation; consider JENNIFER evaluation Ordering Physician: Dolly Daniels Referring Physician: DALI RICE Performed By: Susanna Walker and Student Physical Exam Const alert, oriented x3 and no apparent distress Constitutional Narrative: frail General Appearance: cooperative and well developed HEENT normocephalic, head/scalp atraumatic, moist oral mucous membranes and oropharynxnormal Eyes PERRL and EOMs intact bilaterally Neck no lymphadenopathy, supple and no JVD Neck Narrative: No thyromegaly Lymph Lymphatic: no lymphadenopathy noted and no lymphedema noted Resp normal respiratory effort, normal air movement, no retractions, no use of accessory muscles and clear to auscultation bilaterally Cardio regular rate, regular rhythm, S1 normal heart sound, S2 normal heart sound and no murmurs Cardio Narrative: tachycardic GI GI Narrative: abdomen soft, nontender, no organomegaly. Extremity normal to inspection, normal capillary refill, no clubbing, cyanosis or edema and no calf tenderness General Extremity: no tenderness to palpation of joints or extremities Skin General Skin Exam: no breakdown Neuro CN's II-XII intact bilaterally, moves all extremities, no focal motor deficits and no sensory deficits noted Sensorium / Orientation: awake and alert Motor Exam: strength 5/5 throughout and general weakness Psych thought process normal, cooperative and affect normal Appearance: appropriate Activity / Motor Behavior: restless Assessment & Plan Assessment/Plan (1) Small bowel obstruction: PLAN: Plan #Small bowel obstruction * Admitted with complaint of abdominal pain and distention. CT of the abdomen showed a small bowel obstruction. * Resolved. NG tube is now out and she tolerated regular diet. * She has small bowel follow-through yesterday which showed no evidence of obstruction. 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 * Chest x-ray done overnight showed bibasilar atelectasis versus effusion and infection cannot be excluded * Urinalysis showed no evidence of UTI. * blood cultures growing gram positive bacteremia * Blood PCR showing MRSA * Vancomycin IV added on. IV Zosyn discontinued. * 2D echo showed a large mass noted on the left ventricular/papillary muscle. EF is 55 to 60%. Thisis concerning for infective endocarditis. * ID on board and cardiology was consulted per ID. Patient refusing a JENNIFER. She was also complainingof lower back pain so I did order thoracic MRI but patient is also refusing thoracic MRI. * Continue on IV vancomycin for now. * P.o. Tylenol every 6 hours as needed. * per ID, may need transfer to Tertiary facility for CT surgery evaluation if mass is >1cm. * #JOSE * resolved. * #GERD: PPI #Hypokalemia: potassium is 2.8. Will replace. Check magnesium. #History of heart failure preserved ejection fraction: * Not in exacerbation. has known EF of 55% * Breathing treatments bronchodilators. #COPD: Not in exacerbation. Breathing treatment with bronchodilators. #Anxiety and depression: on buspirone and amitryptiline #Hypertension: lisinopril resumed. IV hydralazine prn #Depression: on buspirone and amitryptiline. as well as lexapro #History of migraines: stable. Not having any active migraine now. DVT prophylaxis: lovenox Charges/Coding Visit Charges Inpatient E&M: 73496 Subs Hosp 07/31/24 1801 Dolly Daniels MD Cosigner Signature (if applicable): CC: ~ Signed ADDENDUM by Dr. Dolly Daniels MD on 07/31/24 at 1818 Addendum I discussed with Dr. Higgins about the papillary mass in the left ventricle. He said he is not sure that it is endocarditis and that a JENNIFER would better characterize it. However patient is refusing JENNIFER.He he said it was about a 1.2 cm mass. I discussed with Dr. White who said in light of the sizeof the lesion and had been MRSA positive in her blood, was presumptive endocarditisuntil proven otherwise. Based on the size he would recommend that patient be transferred to tertiary care facility for evaluation by CT surgery. Transfer initiated to [facility]. Patient agreeable to transfer. I did try to call her significant other Linwood ([phone]) at 18:18 to update him. He did not take the call and his voicemail was full so no message could be left. Patient'snurse Crystal updated. 07/31/24 1818 m MD> Date _ Dolly Daniels MD Cosigner Signature (if applicable): Date cc: ~* Signed ADDENDUM by Dr. Dolly Daniels MD on 07/31/24 at 2303 Addendum I spoke to CT surgeon documentation improvement specialist at [facility]. He stated that they would need to get a JENNIFER to determine ifthe mass was a vegetation before any surgery could be considered. Since iliana was refusing a JENNIFER,he felt there was limited help they oculd offer her. Transfer was therefore declined with the advice that patient should get a JENNIFER first, which could be done in [facility]. I spoke to patient and updated her; I counseled her about hte need to have the JENNIFER as without that,it would be difficult for her to be accepted by CT surgery. Patient now agreeable to doing hte JENNIFER. Dr Higgins informed, and he said he agreed that iliana needed JENNIFER to better characterise hte mass as he could not be sure it was a vegetation. Plan therefor is for JENNIFER on Saturday. 07/31/24 2303 m MD> Date _ Dolly Daniels MD Cosigner Signature (if applicable): Date cc: ~* Signed [facility]05-30-2025 Consult note Author Sam Graves [facility] Note Date/Time July 31, 2024 6:35p m [facility] Medical Records Department [address] [place] [address] Consultation - Cardiology 07/31/24 1821 MR#: [id number] Acct: [id number] Name: LEYDA LOPEZ Rep #:[id number] : 1960 63 From: Sam Graves MD PCP: DALI RICE, VINYL DIPPER-C Status:ADM IN Location: [place] [address] Assessment & Plan Assessment/Plan (1) MRSA bacteremia: (2) Small [...] has recent transthoracic echocardiogram, LV function preserved, moderateto large size mass noted in the LV Appears as a large papillary muscle No valvular vegetation noted on the transthoracic echocardiogram. Cardiac exam essentially normal no heart murmur. Patient refused/declined evaluation by transesophageal echocardiogram. Will sign off Sam Graves MD,[facility] HPI Consult Data Date of Consult: 07/31/24 HPI Narrative Reason for Consultation: Patient with MRSA/evaluate with JENNIFER HPI Narrative: LEYDA LOPEZ, is a [address] [facility] Medical History CHF (congestive heart failure) [...] PO DAILY depre ssion 05/11/23 04/30/24 History hydroxyzine HCl 50 mg tablet [...] DAILY blood pressur e 06/04/23 04/30/24 History potassium chloride 20 mEq 20 meq PO DAILYCM diuretic u se #30 06/06/23 04/30/24 Rx tablet,extended release(part/cryst) tabs trazodone 50 mg tablet 50 mg PO QHS insomnia Unknown History albuterol sulfate 2.5 mg/3 mL 2.5 mg inhalation Q4H OK N PRN 07/26/24 Unknown History (0.083 %) solution for nebulization wheezing buspirone 10 mg tablet 10 mg PO TID mental health 0 07/26/24 Unknown History escitalopram oxalate 20 mg tablet 20 mg PO DAILY depre ssion 07/26/24 Unknown History (Lexapro) fluticasone 250 mcg-salmeterol 50 1 ea inhalation BID copd 07/26/24 Unknown History mcg/dose blistr powdr for inhalation furosemide 40 mg tablet 40 mg PO DAILY water pill Unknown History loperamide 2 mg capsule 2 mg PO TID PRN PRN diarrhea 07/26/24 Unknown History Allergy/AdvReac Type Severity Reaction Status Date / Time methotrexate Allergy Other Verified 07/26/24 13:29 nadolol Allergy Unknown Verified 07/26/24 13:29 prochlorperazine Allergy PT UNABLE Verified 07/26/24 13:29 TO RESPOND-NEEDS F/U baclofen AdvReac Other Verified 07/26/24 13:29 lorazepam (From Ativan) AdvReac Nausea Verified 07/26/24 13:29 propranolol AdvReac Other Verified 07/26/24 13:29 Family History Other COPD (chronic obstructive pulmonary disease) Surgical History H/O umbilical hernia repair Social History Smoking Status: Former smoker substance use type: marijuana Physical Exam Cardio Cardio Narrative: Patient seen evaluated and examined in the echo department She declined JENNIFER. Cardiac exam S1-S2 is regular Chest exam, mildly diminished air entry bilateral. Risk Stratification Risk Stratification Applicable: No Objective Data Vital Signs: Vital Signs Temp Pulse Resp BP Pulse Ox O2 Del Method O2 Flow Rate 98.9 F 86 18 128/86 H 95 Nasal Cannula 3 07/31/24 15:00 07/31/24 15:00 07/31/24 15:00 07/31/24 15:00 07/31/24 15:00 07/31/24 15:00 07/31/24 15:00 Oxygen Flow Rate (L/min) 3 Oxygen Delivery Method Nasal Cannula Weight: 142 lb 6.698 oz Body Mass Index (BMI) 30.8 Intake & Output: Intake and Output for Last 24 Hours 07/29/24 07/30/24 07/31/24 23:59 23:59 23:59 Intake Total 4316.67 / 4316.67 4126.67 / 4126.67 3848.32 / 3848.32 Output Total 500 / 500 700 / 700 Balance 4316.67 / 4316.67 3626.67 / 3626.67 3148.32 / 3148.32 Lab / Micro Data 07/31/24 05:53 07/31/24 05:53 Labs: Laboratory Results - last 24 hr 07/31/24 05:53: WBC 8.4, RBC 2.69 L, Hgb 8.1 L, Hct 24.5 L, MCV 91.1, MCH 30.1, MCHC 33.1, RDW Std Deviation 46.5 H, RDW Coeff of Alejandra 14.0, Plt Count 150, MPV 10.7, Immature Gran % (Auto) 1.800 H, Neut % (Auto) 77.2 H, Lymph % (Auto) 9.4 L, [place] % (Auto) 10.9 H, Eos % (Auto) 0.2, Baso % (Auto) 0.5, Absolute Neuts (auto) 6.5, Absolute Lymphs (auto) 0.79 L, Nucleated RBC % 0, Sodium 143, Potassium 2.8 L, Chloride 107, Carbon Dioxide 24.3, Anion Gap 12, BUN 13, Creatinine 1.08, Estim Creat Clear Calc 44.73 L, Est GFR (MDRD) Non-Af 58 L, BUN/Creatinine Ratio 11.7, Glucose 101 H, Calcium 7.3 L, Magnesium 1.3 L Micro: Microbiology 07/29/24 22:25 Blood Culture (Wb) - Right Hand Blood Culture - Final Staphylococcus aureus 07/29/24 22:30 Blood Culture (Wb) - Anticubital Left Bacteria Detection (PCR) - Final Meth. resistant Staph. aureus 07/29/24 22:30 Blood Culture (Wb) - Anticubital Left Blood Culture - Preliminary Meth. resistant Staph. aureus 07/30/24 12:50 Urine, Clean Catch Legionella Antigen - Final 07/30/24 12:50 Urine, Clean Catch Streptococcus pneumoniae Antigen (M - Final 07/30/24 12:20 Mucosa - Nasopharyngeal Respiratory Panel (PCR) - Final Cardiology Labs/Tests 07/31/24 05:53: WBC 8.4, RBC 2.69 L, Hgb 8.1 L, Hct 24.5 L, MCV 91.1, MCH 30.1, MCHC 33.1, Plt Count 150, MPV 10.7, Immature Gran % (Auto) 1.800 H, Neut % (Auto) 77.2 H, Lymph % (Auto) 9.4 L, [place] % (Auto) 10.9 H, Eos % (Auto) 0.2, Baso % (Auto) 0.5, Absolute Neuts (auto) 6.5, Nucleated RBC % 0, Sodium 143, Potassium 2.8 L, Chloride 107, Carbon Dioxide 24.3, Anion Gap 12, BUN 13, Creatinine 1.08, Est GFR (MDRD) Non-Af 58 L, BUN/Creatinine Ratio 11.7, Glucose 101 H, Calcium 7.3 L, Magnesium 1.3 L Rhythm: EKG: ECHO: Stress Test: Cardiac Cath: PCI: CT Surgery: Holter monitor: EPS: PPM: CXR: Chest CT Scan: 07/31/24 1835 <Electronically signed by Sam Graves MD> Cosigner Signature (if applicable): CC: VINYL DIPPER-C DALI RICE~ Signed [facility] Work Phone: [phone]) 749-275305-30-2025 Consult note [facility] Medical Records Department [address] [place] [address] Consultation - Cardiology 07/31/24 1821 MR#: [id number] Acct: [id number] Name: LEYDA LOPEZ Rep #:[id number] : 1960 63 From: Sam Graves MD PCP: SHMUEL PAGAN Status:ADM IN Location: [place] [address]-1 Assessment & Plan Assessment/Plan (1) MRSA bacteremia: (2) Small [...] has recent transthoracic echocardiogram, LV function preserved, moderateto large size mass noted in the LV Appears as a large papillary muscle No valvular vegetation noted on the transthoracic echocardiogram. Cardiac exam essentially normal no heart murmur. Patient refused/declined evaluation by transesophageal echocardiogram. Will sign off Sam Graves MD,[facility] HPI Consult Data Date of Consult: 07/31/24 HPI Narrative Reason for Consultation: Patient with MRSA/evaluate with JENNIFER HPI Narrative: LEYDA LOPEZ, is a [address] [facility] Medical History CHF (congestive heart failure) [...] PO DAILY depre ssion 05/11/23 04/30/24 History hydroxyzine HCl 50 mg tablet [...] DAILY blood pressur e 06/04/23 04/30/24 History potassium chloride 20 mEq 20 meq PO DAILYCM diuretic u se #30 06/06/23 04/30/24 Rx tablet,extended release(part/cryst) tabs trazodone 50 mg tablet 50 mg PO QHS insomnia Unknown History albuterol sulfate 2.5 mg/3 mL 2.5 mg inhalation Q4H OK N PRN 07/26/24 Unknown History (0.083 %) solution for nebulization wheezing buspirone 10 mg tablet 10 mg PO TID mental health 0 07/26/24 Unknown History escitalopram oxalate 20 mg tablet 20 mg PO DAILY depre ssion 07/26/24 Unknown History (Lexapro) fluticasone 250 mcg-salmeterol 50 1 ea inhalation BID copd 07/26/24 Unknown History mcg/dose blistr powdr for inhalation furosemide 40 mg tablet 40 mg PO DAILY water pill Unknown History loperamide 2 mg capsule 2 mg PO TID PRN PRN diarrhea 07/26/24 Unknown History Allergy/AdvReac Type Severity Reaction Status Date / Time methotrexate Allergy Other Verified 07/26/24 13:29 nadolol Allergy Unknown Verified 07/26/24 13:29 prochlorperazine Allergy PT UNABLE Verified 07/26/24 13:29 TO RESPOND-NEEDS F/U baclofen AdvReac Other Verified 07/26/24 13:29 lorazepam (From Ativan) AdvReac Nausea Verified 07/26/24 13:29 propranolol AdvReac Other Verified 07/26/24 13:29 Family History Other COPD (chronic obstructive pulmonary disease) Surgical History H/O umbilical hernia repair Social History Smoking Status: Former smoker substance use type: marijuana Physical Exam Cardio Cardio Narrative: Patient seen evaluated and examined in the echo department She declined JENNIFER. Cardiac exam S1-S2 is regular Chest exam, mildly diminished air entry bilateral. Risk Stratification Risk Stratification Applicable: No Objective Data Vital Signs: Vital Signs Temp Pulse Resp BP Pulse Ox O2 Del Method O2 Flow Rate 98.9 F 86 18 128/86 H 95 Nasal Cannula 3 07/31/24 15:00 07/31/24 15:00 07/31/24 15:00 07/31/24 15:00 07/31/24 15:00 07/31/24 15:00 07/31/24 15:00 Oxygen Flow Rate (L/min) 3 Oxygen Delivery Method Nasal Cannula Weight: 142 lb 6.698 oz Body Mass Index (BMI) 30.8 Intake & Output: Intake and Output for Last 24 Hours 07/29/24 07/30/24 07/31/24 23:59 23:59 23:59 Intake Total 4316.67 / 4316.67 4126.67 / 4126.67 3848.32 / 3848.32 Output Total 500 / 500 700 / 700 Balance 4316.67 / 4316.67 3626.67 / 3626.67 3148.32 / 3148.32 Lab / Micro Data 07/31/24 05:53 07/31/24 05:53 Labs: Laboratory Results - last 24 hr 07/31/24 05:53: WBC 8.4, RBC 2.69 L, Hgb 8.1 L, Hct 24.5 L, MCV 91.1, MCH 30.1, MCHC 33.1, RDW Std Deviation 46.5 H, RDW Coeff of Alejandra 14.0, Plt Count 150, MPV 10.7, Immature Gran % (Auto) 1.800 H, Neut % (Auto) 77.2 H, Lymph % (Auto) 9.4 L, [place] % (Auto) 10.9 H, Eos % (Auto) 0.2, Baso % (Auto) 0.5,Absolute Neuts (auto) 6.5, Absolute Lymphs (auto) 0.79 L, Nucleated RBC % 0, Sodium 143, Potassium 2.8 L, Chloride 107, Carbon Dioxide 24.3, Anion Gap 12, BUN 13, Creatinine 1.08, Estim Creat Clear Calc 44.73 L, Est GFR (MDRD) Non-Af 58 L, BUN/Creatinine Ratio 11.7, Glucose 101 H, Calcium 7.3 L, Magnesium 1.3 L Micro: Microbiology 07/29/24 22:25 Blood Culture (Wb) - Right Hand Blood Culture - Final Staphylococcus aureus 07/29/24 22:30 Blood Culture (Wb) - Anticubital Left Bacteria Detection (PCR) - Final Meth. resistant Staph. aureus 07/29/24 22:30 Blood Culture (Wb) - Anticubital Left Blood Culture - Preliminary Meth. resistant Staph. aureus 07/30/24 12:50 Urine, Clean Catch Legionella Antigen - Final 07/30/24 12:50 Urine, Clean Catch Streptococcus pneumoniae Antigen (M - Final 07/30/24 12:20 Mucosa - Nasopharyngeal Respiratory Panel (PCR) - Final Cardiology Labs/Tests 07/31/24 05:53: WBC 8.4, RBC 2.69 L, Hgb 8.1 L, Hct 24.5 L, MCV 91.1, MCH 30.1, MCHC 33.1, Plt Count 150, MPV 10.7, Immature Gran % (Auto) 1.800 H, Neut % (Auto) 77.2 H, Lymph % (Auto) 9.4 L, [place] % (Auto) 10.9 H, Eos % (Auto) 0.2, Baso % (Auto) 0.5, Absolute Neuts (auto) 6.5, Nucleated RBC % 0, Sodium 143, Potassium 2.8 L, Chloride 107, Carbon Dioxide 24.3, Anion Gap 12, BUN 13, Creatinine 1.08,Est GFR (MDRD) Non-Af 58 L, BUN/Creatinine Ratio 11.7, Glucose 101 H, Calcium 7.3 L, Magnesium 1.3 L Rhythm: EKG: ECHO: Stress Test: Cardiac Cath: PCI: CT Surgery: Holter monitor: EPS: PPM: CXR: Chest CT Scan: 07/31/24 1835 Cosigner Signature (if applicable): CC: VINYL DIPPER-C DALI RICE~ Signed [facility]05-30-2025 Consult note Author Merrick White [facility] Note Date/Time July 31, 2024 10:47 am [facility] Medical Records Department [address] [place] [address] Consultation - Infectious Dx 07/31/24 1037 MR#: [id number] Acct: [id number] Name: LEYDA LOPEZ Rep #:[id number] : 1960 63 From: Merrick gunn MD PCP: SHMUEL PAGAN Status:ADM IN Location: [id number] Assessment & Plan Assessment/Plan (1) MRSA bacteremia: (2) Small bowel obstruction: (3) Rheumatoid arthritis: (4) Sepsis: PLAN: sepsis with JOSE, MRSA bacteremia per pcr, and h/o COPD. Suspect pulmonarysource given past sputum (+) for MRSA. Concern [...] RA on methotrexate, presented 07/26 with 2 daysprogressive abd pain, distension, not feeling well. Sx associated with nausea. CT showed SBO. Surgery consulted. NG placed. Developed fever 07/29, bcx sent, now Mrsa (+). Denies any wounds or skin infections. Some cough. Some new backpain. Started on vanc/zosyn. TTE done and showed [...] PO DAILY depre ssion 05/11/23 04/30/24 History hydroxyzine HCl 50 mg tablet [...] DAILY blood pressur e 06/04/23 04/30/24 History potassium chloride 20 mEq 20 meq PO DAILYCM diuretic u se #30 06/06/23 04/30/24 Rx tablet,extended release(part/cryst) tabs trazodone 50 mg tablet 50 mg PO QHS insomnia Unknown History albuterol sulfate 2.5 mg/3 mL 2.5 mg inhalation Q4H OK N PRN 07/26/24 Unknown History (0.083 %) solution for nebulization wheezing buspirone 10 mg tablet 10 mg PO TID mental health 0 07/26/24 Unknown History escitalopram oxalate 20 mg tablet 20 mg PO DAILY depre ssion 07/26/24 Unknown History (Lexapro) fluticasone 250 mcg-salmeterol 50 1 ea inhalation BID copd 07/26/24 Unknown History mcg/dose blistr powdr for inhalation furosemide 40 mg tablet 40 mg PO DAILY water pill Unknown History loperamide 2 mg capsule 2 mg PO TID PRN PRN diarrhea 07/26/24 Unknown History Allergy/AdvReac Type Severity Reaction Status Date / Time methotrexate Allergy Other Verified 07/26/24 13:29 nadolol Allergy Unknown Verified 07/26/24 13:29 prochlorperazine Allergy PT UNABLE Verified 07/26/24 13:29 TO RESPOND-NEEDS F/U baclofen AdvReac Other Verified 07/26/24 13:29 lorazepam (From Ativan) AdvReac Nausea Verified 07/26/24 13:29 propranolol AdvReac Other Verified 07/26/24 13:29 Family History Other COPD (chronic obstructive pulmonary disease) Surgical History H/O umbilical hernia repair Social History Smoking Status: Former smoker substance use type: marijuana Physical Exam Const alert and oriented x3 Constitutional Narrative: ill appearing General Appearance: cooperative HEENT normocephalic and head/scalp atraumatic Eyes PERRL and EOMs intact bilaterally Neck supple and No nodes Resp Resp Narrative: some rhonchi in bases Cardio regular rate and regular rhythm Heart Sounds: murmur GI soft to palpation GI Narrative: mild tenderness and distension Extremity General Extremity: Negative for edema Skin Skin Narrative: no splinter hemorrhages on hands or feet. Mild point tenderness to palpation over mid-T spine Neuro CN's II-XII intact bilaterally Lab / Micro Data Attestation: I reviewed the patient's lab results. 07/31/24 05:53 07/31/24 05:53 Labs: Laboratory Results - last 24 hr 07/31/24 05:53: WBC 8.4, RBC 2.69 L, Hgb 8.1 L, Hct 24.5 L, MCV 91.1, MCH 30.1, MCHC 33.1, RDW Std Deviation 46.5 H, RDW Coeff of Alejandra 14.0, Plt Count 150, MPV 10.7, Immature Gran % (Auto) 1.800 H, Neut % (Auto) 77.2 H, Lymph % (Auto) 9.4 L, [place] % (Auto) 10.9 H, Eos % (Auto) 0.2, Baso % (Auto) 0.5, Absolute Neuts (auto) 6.5, Absolute Lymphs (auto) 0.79 L, Nucleated RBC % 0, Sodium 143, Potassium 2.8 L, Chloride 107, Carbon Dioxide 24.3, Anion Gap 12, BUN 13, Creatinine 1.08, Estim Creat Clear Calc 44.73 L, Est GFR (MDRD) Non-Af 58 L, BUN/Creatinine Ratio 11.7, Glucose 101 H, Calcium 7.3 L Micro: Microbiology 07/29/24 22:25 Blood Culture (Wb) - Right Hand Blood Culture - Final Staphylococcus aureus 07/29/24 22:30 Blood Culture (Wb) - Anticubital Left Bacteria Detection (PCR) - Final Meth. resistant Staph. aureus 07/29/24 22:30 Blood Culture (Wb) - Anticubital Left Blood Culture - Preliminary Meth. resistant Staph. aureus 07/30/24 12:50 Urine, Clean Catch Legionella Antigen - Final 07/30/24 12:50 Urine, Clean Catch Streptococcus pneumoniae Antigen (M - Final 07/30/24 12:20 Mucosa - Nasopharyngeal Respiratory Panel (PCR) - Final Imaging Radiology Impression Echocardiogram 07/30/24 13:15 Interpretation Summary Large mass noted in the LV/large papillary muscle The estimated ejection fraction is 55-60 %. No previous study to compare Recommendation; consider JENNIFER evaluation Ordering Physician: Dolly Daniels Referring Physician: DALI RICE Performed By: Susanna Walker and Student 07/31/24 1047 <Electronically signed by Merrick White MD> Cosigner Signature (if applicable): CC: VINYL DIPPER-C DALI RICE~ Signed [facility] Work Phone: 1(179) 669-570705-30-2025 Consult note [facility] Medical Records Department [address] [place] [id number] Consultation - Infectious Dx 07/31/24 1037 MR#: [id number] Acct: [id number] Name: LEYDA LOPEZ Rep #:[id number] : 1960 63 From: Merrick gunn MD PCP: SHMUEL PAGAN Status:ADM IN Location: [place] [address] Assessment & Plan Assessment/Plan (1) MRSA bacteremia: (2) Small bowel obstruction: (3) Rheumatoid arthritis: (4) Sepsis: PLAN: sepsis with JOSE, MRSA bacteremia per pcr, and h/o COPD. Suspect pulmonarysource given past sputum (+) for MRSA. Concern for endocarditis with LV mass seen on TTE; will order JENNIFER and cardiology consult. May need transfer for cardiac surgery eval. Also with thoracic spine tenderness, will orderMRI. Cont vanc and repeat bcx today. Will follow, thank you (5) JOSE (acute kidney injury): HPI Consult Data Date of Consult: 07/31/24 HPI Narrative Reason for Consultation: bacteremia HPI Narrative: LEYDA LOPEZ, is a 63 F with RA on methotrexate, presented 07/26 with 2 daysprogressive abd pain, distension, not feeling well. Sx associated with nausea. CT showed SBO. Surgery consulted. NG placed. Developed fever 07/29, bcx sent, now Mrsa (+). Denies any wounds or skin infections. Some cough.Some new backpain. Started on vanc/zosyn. TTE done and showed LV mass. Full ROS performed and neg except as noted above. [facility] Medical History CHF (congestive heart failure) [...] PO DAILY depre ssion 05/11/23 04/30/24 History hydroxyzine HCl 50 mg tablet [...] DAILY blood pressur e 06/04/23 04/30/24 History potassium chloride 20 mEq 20 meq PO DAILYCM diuretic u se #30 06/06/23 04/30/24 Rx tablet,extended release(part/cryst) tabs trazodone 50 mg tablet 50 mg PO QHS insomnia Unknown History albuterol sulfate 2.5 mg/3 mL 2.5 mg inhalation Q4H OK N PRN 07/26/24 Unknown History (0.083 %) solution for nebulization wheezing buspirone 10 mg tablet 10 mg PO TID mental health 0 07/26/24 Unknown History escitalopram oxalate 20 mg tablet 20 mg PO DAILY depre ssion 07/26/24 Unknown History (Lexapro) fluticasone 250 mcg-salmeterol 50 1 ea inhalation BID copd 07/26/24 Unknown History mcg/dose blistr powdr for inhalation furosemide 40 mg tablet 40 mg PO DAILY water pill Unknown History loperamide 2 mg capsule 2 mg PO TID PRN PRN diarrhea 07/26/24 Unknown History Allergy/AdvReac Type Severity Reaction Status Date / Time methotrexate Allergy Other Verified 07/26/24 13:29 nadolol Allergy Unknown Verified 07/26/24 13:29 prochlorperazine Allergy PT UNABLE Verified 07/26/24 13:29 TO RESPOND-NEEDS F/U baclofen AdvReac Other Verified 07/26/24 13:29 lorazepam (From Ativan) AdvReac Nausea Verified 07/26/24 13:29 propranolol AdvReac Other Verified 07/26/24 13:29 Family History Other COPD (chronic obstructive pulmonary disease) Surgical History H/O umbilical hernia repair Social History Smoking Status: Former smoker substance use type: marijuana Physical Exam Const alert and oriented x3 Constitutional Narrative: ill appearing General Appearance: cooperative HEENT normocephalic and head/scalp atraumatic Eyes PERRL and EOMs intact bilaterally Neck supple and No nodes Resp Resp Narrative: some rhonchi in bases Cardio regular rate and regular rhythm Heart Sounds: murmur GI soft to palpation GI Narrative: mild tenderness and distension Extremity General Extremity: Negative for edema Skin Skin Narrative: no splinter hemorrhages on hands or feet. Mild point tenderness to palpation over mid-T spine Neuro CN's II-XII intact bilaterally Lab / Micro Data Attestation: I reviewed the patient's lab results. 07/31/24 05:53 07/31/24 05:53 Labs: Laboratory Results - last 24 hr 07/31/24 05:53: WBC 8.4, RBC 2.69 L, Hgb 8.1 L, Hct 24.5 L, MCV 91.1, MCH 30.1, MCHC 33.1, RDW Std Deviation 46.5 H, RDW Coeff of Alejandra 14.0, Plt Count 150, MPV 10.7, Immature Gran % (Auto) 1.800 H, Neut % (Auto) 77.2 H, Lymph % (Auto) 9.4 L, [place] % (Auto) 10.9 H, Eos % (Auto) 0.2, Baso % (Auto) 0.5,Absolute Neuts (auto) 6.5, Absolute Lymphs (auto) 0.79 L, Nucleated RBC % 0, Sodium 143, Potassium 2.8 L, Chloride 107, Carbon Dioxide 24.3, Anion Gap 12, BUN 13, Creatinine 1.08, Estim Creat Clear Calc 44.73 L, Est GFR (MDRD) Non-Af 58 L, BUN/Creatinine Ratio 11.7, Glucose 101 H, Calcium 7.3 L Micro: Microbiology 07/29/24 22:25 Blood Culture (Wb) - Right Hand Blood Culture - Final Staphylococcus aureus 07/29/24 22:30 Blood Culture (Wb) - Anticubital Left Bacteria Detection (PCR) - Final Meth. resistant Staph. aureus 07/29/24 22:30 Blood Culture (Wb) - Anticubital Left Blood Culture - Preliminary Meth. resistant Staph. aureus 07/30/24 12:50 Urine, Clean Catch Legionella Antigen - Final 07/30/24 12:50 Urine, Clean Catch Streptococcus pneumoniae Antigen (M - Final 07/30/24 12:20 Mucosa - Nasopharyngeal Respiratory Panel (PCR) - Final Imaging Radiology Impression Echocardiogram 07/30/24 13:15 Interpretation Summary Large mass noted in the LV/large papillary muscle The estimated ejection fraction is 55-60 %. No previous study to compare Recommendation; consider JENNIFER evaluation Ordering Physician: Dolly Daniels Referring Physician: DALI RICE Performed By: Susanna Walker and Student 07/31/24 1047 Cosigner Signature (if applicable): CC: SHMUEL RICE~ Signed [facility]05-29-2025 Consult note Author Bárbara Rizzo [facility] Note Date/Time July 30, 2024 4:53p [facility] Medical Records Department [address] [place] [address] Pharmacokinetic/Renal -Consult 07/30/24 1459 MR#: [id number] Acct: [id number] Name: LEYDA LOPEZ Rep #:[id number] : 1960 63 From: Bárbara Rizzo PCP: SHMUEL PAGAN Status:ADM IN Y Location: [address] Consult Antibiotic Management Pharmacy has been consulted to manage selected antibiotic: Vancomycin Type of Intervention Type of Consult: New start Suspected Infection Suspected Infection: Bacteremia Prior Doses of Antibiotics Prior Doses of Antibiotics Received/Current Regimen: 1750 mg once at 1419 on 07/30/2024 Labs Labs: Sodium 143 mmol/L (133-145) 07/30/24 06:06 Potassium 3.0 mmol/L (3.3-5.1) L 07/30/24 06:06 Chloride 106 mmol/L (98-108) 07/30/24 06:06 Carbon Dioxide 23.6 mmol/L (21.0-32.0) 07/30/24 06:06 Anion Gap 13 (5-15) 07/30/24 06:06 BUN 10 mg/dL (4-19) 07/30/24 06:06 Creatinine 0.90 mg/dL (0.70-1.20) 07/30/24 06:06 Est GFR (MDRD) Non-Af 72 (>60) 07/30/24 06:06 BUN/Creatinine Ratio 11.5 RATIO (10-20) 07/30/24 06:06 Glucose 125 mg/dL (70-99) H 07/30/24 06:06 Microbiology Microbiology: Microbiology 07/29/24 22:30 Blood Culture (Wb) - Anticubital Left Blood Culture - Preliminary 07/29/24 22:25 Blood Culture (Wb) - Right Hand Blood Culture - Preliminary Dosing Weight Weight used for dosin.6 kg Estimated Creatinine Clearance Estimated Creatinine Clearance: 53.7 ml/mi Goal Trough Goal Trough: 15-20 mcg/mL Pharmacy Plan for Drug Dosing Pharmacy Plan for Drug Dosing: NEW START IV VANCOMYCIN Consulting Physician: Frances Indication: Bacteremia Goal Trough: 15-20 SrCr: 0.9 mg/dL CrCl: 53.67 mL/min Vancomycin Dose: 750mg q12h Pharmacy Service will continue to monitor and adjust dosing as required. Follow-Up Labs Follow-Up Labs: Trough: Vancomycin Date/Time Labs Ordered Labs to be done on [date and time ordered]: Pending Level: 08/01/2024 @0200 07/30/24 1503 <Electronically signed by Bárbara wilkinson> Date _ Bárbara Rizzo 07/30/24 3059 <Electronically signed by Dolly ricketts MD> Cosigner Signature (if applicable): Date Dolly Daniels MD CC: ~ Signed [facility] Work Phone: [phone]) 286-895405-29-2025 Progress note [facility] Note Date/Time July 30, 2024 4:52p m [facility] Medical Records Department [address] [place] [address] Progress Note 07/30/24 1212 MR#: [id number] Acct: [id number] Name: LEYDA LOPEZ Rep #:[id number] : 1960 63 From: Dolly Daniels MD PCP: DALI RICE VINYL DIPPER-C Status:ADM IN Location: [place] 750602-1 Subjective Subjective Patient seen and examined. She had no active complaints. However, patient has been spiking a fever, going as high as 102F. She denied any chills, cough, shortness of breath, chest pain, abdominal pain or any urinary symptoms. Review of systems is otherwise negative. Objective Data Objective Data Vital Signs: Vital Signs Temp Pulse Resp BP Pulse Ox O2 Del Method O2 Flow Rate 99.2 F H 106 H 18 159/87 H 95 Nasal Cannula 3 07/30/24 11:14 07/30/24 11:14 07/30/24 11:14 07/30/24 11:14 07/30/24 11:14 07/30/24 11:14 07/30/24 11:14 Oxygen Flow Rate (L/min) 3 Oxygen Delivery Method Nasal Cannula Weight: 142 lb 6.698 oz Body Mass Index (BMI) 30.8 Intake & Output: Intake and Output for Last 24 Hours 07/28/24 07/29/24 07/30/24 23:59 23:59 23:59 Intake Total 3070 / 3070 4316.67 / 4316.67 2250 / 2250 Output Total 2049 / 2049 500 / 500 Balance 1020 / 1020 4316.67 / 4316.67 1750 / 1750 Lab / Micro Data 07/30/24 06:06 07/30/24 06:06 Labs: Laboratory Results - last 24 hr 07/29/24 20:40: Potassium 3.3 07/29/24 20:57: Urine Color Straw, Urine Clarity Clear, Urine pH 6.0, Ur Specific Taylor 1.010, Urine Protein 15 H, Urine Glucose (UA) Normal, Urine Ketones Negative, Urine Occult Blood 25 H, Urine Nitrite Negative, Urine Bilirubin Negative, Urine Urobilinogen Normal, Ur Leukocyte Esterase Negative, Urine RBC 0-5 SEEN, Urine WBC 0-5 SEEN, Ur Squamous Epith Cells 0-5 SEEN, Urine Bacteria 0 SEEN, Urine Mucus 0 SEEN 07/30/24 06:06: WBC 10.7, RBC 3.03 L, Hgb 9.1 L, Hct 27.4 L, MCV 90.4, MCH 30.0,MCHC 33.2, RDW Std Deviation 45.0 H, RDW Coeff of Alejandra 13.6, Plt Count 158, MPV 10.6, Immature Gran % (Auto) 1.200 H, Neut % (Auto) 80.2 H, Lymph % (Auto) 7.0 L, [place] % (Auto) 9.4, Eos % (Auto) 1.9, Baso % (Auto) 0.3, Absolute Neuts (auto) 8.6 H, Absolute Lymphs (auto) 0.75 L, Nucleated RBC % 0, Sodium 143, Potassium 3.0 L, Chloride 106, Carbon Dioxide 23.6, Anion Gap 13, BUN 10, Creatinine 0.90,Estim Creat Clear Calc 53.67, Est GFR (MDRD) Non-Af 72, BUN/Creatinine Ratio 11.5, Glucose 125 H, Calcium 7.8 Radiography Diagnostic Testing: Radiology Impression Chest X-Ray 07/29/24 21:20 IMPRESSION: Bibasilar atelectasis/effusion. Infection can not be excluded. [facility] Physical Exam Const alert, oriented x3 and no apparent distress Constitutional Narrative: frail General Appearance: cooperative and well developed HEENT normocephalic, head/scalp atraumatic, moist oral mucous membranes and oropharynxnormal Eyes PERRL and EOMs intact bilaterally Neck no lymphadenopathy, supple and no JVD Neck Narrative: No thyromegaly Lymph Lymphatic: no lymphadenopathy noted and no lymphedema noted Resp normal respiratory effort, normal air movement, no retractions, no use of accessory muscles and clear to auscultation bilaterally Cardio regular rhythm, S1 normal heart sound, S2 normal heart sound and no murmurs Cardio Narrative: tachycardic GI GI Narrative: abdomen soft, nontender, no organomegaly. Extremity normal to inspection, normal capillary refill, no clubbing, cyanosis or edema and no calf tenderness General Extremity: no tenderness to palpation of joints or extremities Skin General Skin Exam: no breakdown Neuro CN's II-XII intact bilaterally, moves all extremities, no focal motor deficits and no sensory deficits noted Sensorium / Orientation: awake and alert Motor Exam: strength 5/5 throughout and general weakness Psych thought process normal, cooperative and affect normal Appearance: appropriate Activity / Motor Behavior: restless Assessment & Plan Assessment/Plan (1) Small bowel obstruction: PLAN: Plan #Small bowel obstruction * Admitted with complaint of abdominal pain and distention. CT of the abdomen showed a small bowel obstruction. * Resolved. NG tube is now out and she tolerated regular diet. * She has small bowel follow-through yesterday which showed no evidence of obstruction. #Fever due to gram positive bacteremia * Patient continued to spike a fever overnight. * She does not have any chills, coughing or shortness of breath and has no urinary symptoms or abdominal pain. * Chest x-ray done overnight showed bibasilar atelectasis versus effusion and infection cannot be excluded * Urinalysis showed no evidence of UTI. * blood cultures growing gram positive bacteremia * started on IV zosyn. Will add on IV vancomycin. * consult ID. 2D echo ordered to evaluated for endocarditis. * P.o. Tylenol every 6 hours as needed. * Blood cultures pending. In light of the chest x-ray findings we will start patient on IV zosyn * Check urine for strep and Legionella. * #JOSE * resolved. * #GERD: PPI #Hypokalemia: Potassium is 3. Replace and trend. #History of heart failure preserved ejection fraction: * Not in exacerbation. has known EF of 55% * Breathing treatments bronchodilators. #COPD: Not in exacerbation. Breathing treatment with bronchodilators. #Anxiety and depression: on buspirone and amitryptiline #Hypertension: lisinopril resumed. IV hydralazine prn #Depression: on SSR. #History of migraines: stable. Not having any active migraine now. DVT prophylaxis: lovenox Charges/Coding Visit Charges Inpatient E&M: 45736 Subs Hosp L2 07/30/24 1652 <Electronically signed by Dolly Daniels MD> Dolly Daniels MD Cosigner Signature (if applicable): CC: ~ Signed [facility] Work Phone: [phone] 339-955905-29-2025 Consult note [facility] Medical Records Department [address] [place] [address] Pharmacokinetic/Renal -Consult 07/30/24 1459 MR#: [id number] Acct: [id number] Name: LEYDA LOPEZ Rep #:[id number] : 1960 63 From: Bárbara Rizzo PCP: DALI RICE, VINYL DIPPER-C Status:ADM IN Location: [place] [address] Consult Antibiotic Management Pharmacy has been consulted to manage selected antibiotic: Vancomycin Type of Intervention Type of Consult: New start Suspected Infection Suspected Infection: Bacteremia Prior Doses of Antibiotics Prior Doses of Antibiotics Received/Current Regimen: 1750 mg once at 1419 on 07/30/2024 Labs Labs: Sodium 143 mmol/L (133-145) 07/30/24 06:06 Potassium 3.0 mmol/L (3.3-5.1) L 07/30/24 06:06 Chloride 106 mmol/L (98-108) 07/30/24 06:06 Carbon Dioxide 23.6 mmol/L (21.0-32.0) 07/30/24 06:06 Anion Gap 13 (5-15) 07/30/24 06:06 BUN 10 mg/dL (4-19) 07/30/24 06:06 Creatinine 0.90 mg/dL (0.70-1.20) 07/30/24 06:06 Est GFR (MDRD) Non-Af 72 (>60) 07/30/24 06:06 BUN/Creatinine Ratio 11.5 RATIO (10-20) 07/30/24 06:06 Glucose 125 mg/dL (70-99) H 07/30/24 06:06 Microbiology Microbiology: Microbiology 07/29/24 22:30 Blood Culture (Wb) - Anticubital Left Blood Culture - Preliminary 07/29/24 22:25 Blood Culture (Wb) - Right Hand Blood Culture - Preliminary Dosing Weight Weight used for dosin.6 kg Estimated Creatinine Clearance Estimated Creatinine Clearance: 53.7 ml/mi Goal Trough Goal Trough: 15-20 mcg/mL Pharmacy Plan for Drug Dosing Pharmacy Plan for Drug Dosing: NEW START IV VANCOMYCIN Consulting Physician: Frances Indication: Bacteremia Goal Trough: 15-20 SrCr: 0.9 mg/dL CrCl: 53.67 mL/min Vancomycin Dose: 750mg q12h Pharmacy Service will continue to monitor and adjust dosing as required. Follow-Up Labs Follow-Up Labs: Trough: Vancomycin Date/Time Labs Ordered Labs to be done on [date and time ordered]: Pending Level: 08/01/2024 @0200 07/30/24 1503 ey> Date _ Bárbara Rizzo 07/30/24 1653 m MD> Cosigner Signature (if applicable): Date Dolly Daniels MD CC: ~ Signed [facility]05-29-2025 Progress note [facility] Medical Records Department [address] [place] [address] Progress Note 07/30/24 1212 MR#: [id number] Acct: [id number] Name: LEYDA LOPEZ Rep #:[id number] : 1960 63 From: Dolly Daniels MD PCP: DALI RICE, VINYL DIPPER-C Status:ADM IN Location: [facility] Subjective Subjective Patient seen and examined. She had no active complaints. However, patient has been spiking a fever,going as high as 102F. She denied any chills, cough, shortness of breath, chest pain, abdominal pain or any urinary symptoms. Review of systems is otherwise negative. Objective Data Objective Data Vital Signs: Vital Signs Temp Pulse Resp BP Pulse Ox O2 Del Method O2 Flow Rate 99.2 F H 106 H 18 159/87 H 95 Nasal Cannula 3 07/30/24 11:14 07/30/24 11:14 07/30/24 11:14 07/30/24 11:14 07/30/24 11:14 07/30/24 11:14 07/30/24 11:14 Oxygen Flow Rate (L/min) 3 Oxygen Delivery Method Nasal Cannula Weight: 142 lb 6.698 oz Body Mass Index (BMI) 30.8 Intake & Output: Intake and Output for Last 24 Hours 07/28/24 07/29/24 07/30/24 23:59 23:59 23:59 Intake Total 3070 / 3070 4316.67 / 4316.67 2250 / 2250 Output Total 2049 / 2049 500 / 500 Balance 1020 / 1020 4316.67 / 4316.67 1750 / 1750 Lab / Micro Data 07/30/24 06:06 07/30/24 06:06 Labs: Laboratory Results - last 24 hr 07/29/24 20:40: Potassium 3.3 07/29/24 20:57: Urine Color Straw, Urine Clarity Clear, Urine pH 6.0, Ur Specific Taylor 1.010, Urine Protein 15 H, Urine Glucose (UA) Normal, Urine Ketones Negative, Urine Occult Blood 25 H, Urine Nitrite Negative, Urine Bilirubin Negative, Urine Urobilinogen Normal, Ur Leukocyte Esterase Negative, Urine RBC 0-5 SEEN, Urine WBC 0-5 SEEN, Ur Squamous Epith Cells 0-5 SEEN, Urine Bacteria 0 SEEN, Urine Mucus 0 SEEN 07/30/24 06:06: WBC 10.7, RBC 3.03 L, Hgb 9.1 L, Hct 27.4 L, MCV 90.4, MCH 30.0,MCHC 33.2, RDW Std Deviation 45.0 H, RDW Coeff of Alejandra 13.6, Plt Count 158, MPV 10.6, Immature Gran % (Auto) 1.200 H, Neut % (Auto) 80.2 H, Lymph % (Auto) 7.0 L, [place] % (Auto) 9.4, Eos % (Auto) 1.9, Baso % (Auto) 0.3, Absolute Neuts (auto) 8.6 H, Absolute Lymphs (auto) 0.75 L, Nucleated RBC % 0, Sodium 143, Potassium 3.0 L, Chloride 106, Carbon Dioxide 23.6, Anion Gap 13, BUN 10, Creatinine 0.90,Estim Creat Clear Calc 53.67, Est GFR (MDRD) Non-Af 72, BUN/Creatinine Ratio 11.5, Glucose 125 H, Calcium 7.8 Radiography Diagnostic Testing: Radiology Impression Chest X-Ray 07/29/24 21:20 IMPRESSION: Bibasilar atelectasis/effusion. Infection can not be excluded. Reading [facility] Physical Exam Const alert, oriented x3 and no apparent distress Constitutional Narrative: frail General Appearance: cooperative and well developed HEENT normocephalic, head/scalp atraumatic, moist oral mucous membranes and oropharynxnormal Eyes PERRL and EOMs intact bilaterally Neck no lymphadenopathy, supple and no JVD Neck Narrative: No thyromegaly Lymph Lymphatic: no lymphadenopathy noted and no lymphedema noted Resp normal respiratory effort, normal air movement, no retractions, no use of accessory muscles and clear to auscultation bilaterally Cardio regular rhythm, S1 normal heart sound, S2 normal heart sound and no murmurs Cardio Narrative: tachycardic GI GI Narrative: abdomen soft, nontender, no organomegaly. Extremity normal to inspection, normal capillary refill, no clubbing, cyanosis or edema and no calf tenderness General Extremity: no tenderness to palpation of joints or extremities Skin General Skin Exam: no breakdown Neuro CN's II-XII intact bilaterally, moves all extremities, no focal motor deficits and no sensory deficits noted Sensorium / Orientation: awake and alert Motor Exam: strength 5/5 throughout and general weakness Psych thought process normal, cooperative and affect normal Appearance: appropriate Activity / Motor Behavior: restless Assessment & Plan Assessment/Plan (1) Small bowel obstruction: PLAN: Plan #Small bowel obstruction * Admitted with complaint of abdominal pain and distention. CT of the abdomen showed a small bowel obstruction. * Resolved. NG tube is now out and she tolerated regular diet. * She has small bowel follow-through yesterday which showed no evidence of obstruction. #Fever due to gram positive bacteremia * Patient continued to spike a fever overnight. * She does not have any chills, coughing or shortness of breath and has no urinary symptoms or abdominal pain. * Chest x-ray done overnight showed bibasilar atelectasis versus effusion and infection cannot be excluded * Urinalysis showed no evidence of UTI. * blood cultures growing gram positive bacteremia * started on IV zosyn. Will add on IV vancomycin. * consult ID. 2D echo ordered to evaluated for endocarditis. * P.o. Tylenol every 6 hours as needed. * Blood cultures pending. In light of the chest x-ray findings we will start patient on IV zosyn * Check urine for strep and Legionella. * #JOSE * resolved. * #GERD: PPI #Hypokalemia: Potassium is 3. Replace and trend. #History of heart failure preserved ejection fraction: * Not in exacerbation. has known EF of 55% * Breathing treatments bronchodilators. #COPD: Not in exacerbation. Breathing treatment with bronchodilators. #Anxiety and depression: on buspirone and amitryptiline #Hypertension: lisinopril resumed. IV hydralazine prn #Depression: on SSR. #History of migraines: stable. Not having any active migraine now. DVT prophylaxis: lovenox Charges/Coding Visit Charges Inpatient E&M: 53180 Subs Hosp L2 07/30/24 1652 Dolly Daniles MD Cosigner Signature (if applicable): CC: ~ Signed [facility]05-28-2025 Radiology Diagnostic study note [facility] Imaging Services [address] [place] [address] Chest PA and Lateral MR#: [id number] Acct: [id number] Name: LEYDA LOPEZ Rep #: [id number] : 1960 F 63 From: Ralph Sterling DO PCP: DALI RICE, VINYL DIPPER-C Status: ADM IN Study:Chest PA and Lateral Date of Exam: 07/29/24 Exam# [id number] Ordering Dr: Lux Quinonez MD PROCEDURE: CHEST [...] Infection can not be excluded. Reading Location: [facility] CC: VINYL DIPPER-C DALI RICE; Dr. Lux Quinonez MD ~ Coil Builder: Signed [facility]05-28-2025 Progress note Author Dolly Daniels [facility] Note Date/Time July 29, 2024 6:00p m [facility] Medical Records Department [address] [place] [address] Progress Note 07/29/24 1459 MR#: [id number] Acct: [id number] Name: LEYDA LOPEZ Rep #:[id number] : 1960 63 From: Dolly Daniels MD PCP: SHMUEL PAGAN Status:ADM IN Location: [place] [address]602-1 Subjective Subjective Patient seen and examined. She had no active complaints at time of review. SHe had tolerated a regular diet. Patient however developed a fever of up to 101.4 later today. She denied any shortness of breath or coughing or any urinary symptoms. She is not having any diarrhea. Review of systems otherwise negative. Objective Data Objective Data Vital Signs: Vital Signs Temp Pulse Resp BP Pulse Ox O2 Del Method O2 Flow Rate 101 F H 81 18 154/87 H 97 Nasal Cannula 2 07/29/24 14:07 07/29/24 14:07 07/29/24 14:07 07/29/24 14:07 07/29/24 14:07 07/29/24 14:07 07/29/24 14:07 Oxygen Flow Rate (L/min) 2 Oxygen Delivery Method Nasal Cannula Weight: 142 lb 6.698 oz Body Mass Index (BMI) 30.8 Intake & Output: Intake and Output for Last 24 Hours 07/27/24 07/28/24 07/29/24 23:59 23:59 23:59 Intake Total 3410 / 3410 3070 / 3070 3316.67 / 3316.67 Output Total 1500 / 1500 2049 / 2049 Balance 1909 / 1909 1020 / 1020 3316.67 / 3316.67 Lab / Micro Data 07/29/24 06:16 07/29/24 06:16 Labs: Laboratory Results - last 24 hr 07/29/24 06:16: WBC 8.2, RBC 2.95 L, Hgb 8.8 L, Hct 27.5 L, MCV 93.2, MCH 29.8, MCHC 32.0, RDW Std Deviation 46.0 H, RDW Coeff of Alejandra 13.4, Plt Count 163, MPV 10.8, Immature Gran % (Auto) 0.600, Neut % (Auto) 71.4 H, Lymph % (Auto) 14.6 L,[place] % (Auto) 8.6, Eos % (Auto) 4.6, Baso % (Auto) 0.2, Absolute Neuts (auto) 5.9, Absolute Lymphs (auto) 1.20, Nucleated RBC % 0, Sodium 143, Potassium 2.9 L, Chloride 108, Carbon Dioxide 25.6, Anion Gap 10, BUN 13, Creatinine 0.80, Estim Creat Clear Calc 60.38, Est GFR (MDRD) Non-Af 83, BUN/Creatinine Ratio 16.4, Glucose 100 H, Calcium 8.3 Physical Exam Const alert, oriented x3 and no apparent distress Constitutional Narrative: frail General Appearance: cooperative and well developed HEENT normocephalic, head/scalp atraumatic and oropharynx normal Eyes PERRL and EOMs intact bilaterally Neck no lymphadenopathy, supple and no JVD Neck Narrative: No thyromegaly Lymph Lymphatic: no lymphadenopathy noted and no lymphedema noted Resp normal respiratory effort, normal air movement, no retractions, no use of accessory muscles and clear to auscultation bilaterally Cardio regular rate, regular rhythm, S1 normal heart sound, S2 normal heart sound and no murmurs GI GI Narrative: abdomen soft, nontender, no organomegaly. Extremity normal to inspection, normal capillary refill, no clubbing, cyanosis or edema and no calf tenderness General Extremity: no tenderness to palpation of joints or extremities Skin General Skin Exam: no breakdown Neuro moves all extremities, no focal motor deficits and no sensory deficits noted Sensorium / Orientation: awake and alert Motor Exam: strength 5/5 throughout and general weakness Psych thought process normal, cooperative and affect normal Appearance: appropriate Assessment & Plan Assessment/Plan (1) Small bowel obstruction: PLAN: Plan #Small bowel obstruction * Admitted with complaint of abdominal pain and distention. CT of the abdomen showed a small bowel obstruction. * Resolved. NG tube is now out and she tolerated regular diet. She has small bowel follow-through yesterday which showed no evidence of obstruction. #Fever: * Patient spiked a fever today of up to 101.4. * She does not have any chills, coughing or shortness of breath and has no urinary symptoms or abdominal pain. * Etiology of fever is not clear as at now. * P.o. Tylenol every 6 hours as needed. * Will monitor and if fever persist we will get an extensive workup with cultures. * #JOSE * resolved. * #GERD: PPI #Hypokalemia: Potassium is 2.9. Replace and trend. #History of heart failure preserved ejection fraction: * Not in exacerbation. has known EF of 55% * Breathing treatments bronchodilators. #COPD: Not in exacerbation. Breathing treatment with bronchodilators. #Anxiety and depression: on buspirone and amitryptiline #Hypertension: lisinopril resumed. IV hydralazine prn #Depression: on SSR. #History of migraines: stable. Not having any active migraine now. DVT prophylaxis: lovenox Charges/Coding Visit Charges Inpatient E&M: 79999 Subs Hosp L2 07/29/24 1800 <Electronically signed by Dolly Daniels MD> Dolly Daniels MD Cosigner Signature (if applicable): CC: ~ Signed [facility] Work Phone: 1(692) 742-712105-28-2025 Progress note [facility] Medical Records Department [address] [place] [address] Progress Note 07/29/24 1459 MR#: [id number] Acct: [id number] Name: LEYDA LOPEZ Rep #:[id number] : 1960 63 From: Dolly Daniels MD PCP: DALI RICE VINYL DIPPERAfshinC Status:ADM IN Location: [facility] LT343-8 Subjective Subjective Patient seen and examined. She had no active complaints at time of review. SHe had tolerated a regular diet. Patient however developed a fever of up to 101.4 later today. She denied any shortness of breath or coughing or any urinary symptoms. She is not having any diarrhea. Review of systems otherwise negative. Objective Data Objective Data Vital Signs: Vital Signs Temp Pulse Resp BP Pulse Ox O2 Del Method O2 Flow Rate 101 F H 81 18 154/87 H 97 Nasal Cannula 2 07/29/24 14:07 07/29/24 14:07 07/29/24 14:07 07/29/24 14:07 07/29/24 14:07 07/29/24 14:07 07/29/24 14:07 Oxygen Flow Rate (L/min) 2 Oxygen Delivery Method Nasal Cannula Weight: 142 lb 6.698 oz Body Mass Index (BMI) 30.8 Intake & Output: Intake and Output for Last 24 Hours 07/27/24 07/28/24 07/29/24 23:59 23:59 23:59 Intake Total 3410 / 3410 3070 / 3070 3316.67 / 3316.67 Output Total 1500 / 1500 2049 / 2049 Balance 1909 / 1909 1020 / 1020 3316.67 / 3316.67 Lab / Micro Data 07/29/24 06:16 07/29/24 06:16 Labs: Laboratory Results - last 24 hr 07/29/24 06:16: WBC 8.2, RBC 2.95 L, Hgb 8.8 L, Hct 27.5 L, MCV 93.2, MCH 29.8, MCHC 32.0, RDW Std Deviation 46.0 H, RDW Coeff of Alejandra 13.4, Plt Count 163, MPV 10.8, Immature Gran % (Auto) 0.600, Neut% (Auto) 71.4 H, Lymph % (Auto) 14.6 L,[place] % (Auto) 8.6, Eos % (Auto) 4.6, Baso % (Auto) 0.2, Absolute Neuts (auto) 5.9, Absolute Lymphs (auto) 1.20, Nucleated RBC % 0, Sodium 143, Potassium 2.9 L, Chloride 108, Carbon Dioxide 25.6, Anion Gap 10, BUN 13, Creatinine 0.80, Estim Creat Clear Calc 60.38, Est GFR (MDRD) Non-Af 83, BUN/Creatinine Ratio 16.4, Glucose 100 H, Calcium 8.3 Physical Exam Const alert, oriented x3 and no apparent distress Constitutional Narrative: frail General Appearance: cooperative and well developed HEENT normocephalic, head/scalp atraumatic and oropharynx normal Eyes PERRL and EOMs intact bilaterally Neck no lymphadenopathy, supple and no JVD Neck Narrative: No thyromegaly Lymph Lymphatic: no lymphadenopathy noted and no lymphedema noted Resp normal respiratory effort, normal air movement, no retractions, no use of accessory muscles and clear to auscultation bilaterally Cardio regular rate, regular rhythm, S1 normal heart sound, S2 normal heart sound and no murmurs GI GI Narrative: abdomen soft, nontender, no organomegaly. Extremity normal to inspection, normal capillary refill, no clubbing, cyanosis or edema and no calf tenderness General Extremity: no tenderness to palpation of joints or extremities Skin General Skin Exam: no breakdown Neuro moves all extremities, no focal motor deficits and no sensory deficits noted Sensorium / Orientation: awake and alert Motor Exam: strength 5/5 throughout and general weakness Psych thought process normal, cooperative and affect normal Appearance: appropriate Assessment & Plan Assessment/Plan (1) Small bowel obstruction: PLAN: Plan #Small bowel obstruction * Admitted with complaint of abdominal pain and distention. CT of the abdomen showed a small bowel obstruction. * Resolved. NG tube is now out and she tolerated regular diet. She has small bowel follow-through yesterday which showed no evidence of obstruction. #Fever: * Patient spiked a fever today of up to 101.4. * She does not have any chills, coughing or shortness of breath and has no urinary symptoms or abdominal pain. * Etiology of fever is not clear as at now. * P.o. Tylenol every 6 hours as needed. * Will monitor and if fever persist we will get an extensive workup with cultures. * #JOSE * resolved. * #GERD: PPI #Hypokalemia: Potassium is 2.9. Replace and trend. #History of heart failure preserved ejection fraction: * Not in exacerbation. has known EF of 55% * Breathing treatments bronchodilators. #COPD: Not in exacerbation. Breathing treatment with bronchodilators. #Anxiety and depression: on buspirone and amitryptiline #Hypertension: lisinopril resumed. IV hydralazine prn #Depression: on SSR. #History of migraines: stable. Not having any active migraine now. DVT prophylaxis: lovenox Charges/Coding Visit Charges Inpatient E&M: 53423 Subs Hosp L2 07/29/24 1800 Dolly Daniels MD Cosigner Signature (if applicable): CC: ~ Signed [facility]05-28-2025 Discharge summary Author Amy Bond [facility] Note Date/Time July 29, 2024 3:15p m [facility] Medical Records Department [address] [place] [address] Emergency Department Summary 07/26/24 MR#: [id number] Acct: [id number] Name: LEYDA LOPEZ Rep #:[id number] : 1960 63 From: Amy VEGA PCP: DALI RICE VINYL DIPPER-C Status:ADM IN Location: [place] CH413-8 HPI <GARY Rojas - Last Filed: 07/26/24 21:12> HPI - GI History of Present Illness Chief Complaint: Abd Pain Narrative Narrative: Patient presenting today due to generalized abdominal pain, nausea, and vomiting. She reports that the pain started 2 days ago and the nausea and vomiting started last night. She has a history of umbilical hernia repair. Shedenies history of alcohol use, ascites, or liver disease. Her last bowel movement was 2 days ago, she denies stool changes. She additionally reports dysuria and has concerns for a UTI. She denies fevers, chills, hematemesis, andhematuria. She has a PMH of COPD on chronic supplemental O2, CAD, bipolar disorder, and HTN. PFSH <GARY Rojas - Last Filed: 07/26/24 21:12> [facility] Medical History (Updated 07/29/24 @ 15:[address] Alisa Guaman, ) CHF (congestive heart failure) Anxiety Depression Kidney [...] PO DAILY depre ssion 05/11/23 04/30/24 History hydroxyzine HCl 50 mg tablet [...] DAILY blood pressur e 06/04/23 04/30/24 History potassium chloride 20 mEq 20 meq PO DAILYCM diuretic u se #30 06/06/23 04/30/24 Rx tablet,extended release(part/cryst) tabs trazodone 50 mg tablet 50 mg PO QHS insomnia Unknown History albuterol sulfate 2.5 mg/3 mL 2.5 mg inhalation Q4H OK N PRN 07/26/24 Unknown History (0.083 %) solution for nebulization wheezing buspirone 10 mg tablet 10 mg PO TID mental health 0 07/26/24 Unknown History escitalopram oxalate 20 mg tablet 20 mg PO DAILY depre ssion 07/26/24 Unknown History (Lexapro) fluticasone 250 mcg-salmeterol 50 1 ea inhalation BID copd 07/26/24 Unknown History mcg/dose blistr powdr for inhalation furosemide 40 mg tablet 40 mg PO DAILY water pill Unknown History loperamide 2 mg capsule 2 mg PO TID PRN PRN diarrhea 07/26/24 Unknown History Allergy/AdvReac Type Severity Reaction Status [...] Former smoker substance use type: marijuana ROS <GARY Rojas - Last Filed: 07/26/24 21:12> ROS ED Constitutional Constitutional ED: Denies chills or fever(s) Cardiovascular Cardiovascular: Denies chest pain Respiratory/Chest Respiratory/Chest: Denies dyspnea Gastrointestinal Gastrointestinal: Reports abdominal pain, constipation, nausea and vomiting; Denies diarrhea, hematochezia or melena Genitourinary Genitourinary ED: Reports dysuria; Denies hematuria Musculoskeletal Musculoskeletal: Denies back pain Integumentary Denies rash Neurologic Neurologic: Denies weakness EXAM <GARY Rjoas - Last Filed: 07/26/24 21:12> Physical Exam Const Vital Signs: 07/26/24 13:28 07/26/24 15:28 Temperature 96.9 F L Temperature Source Temporal Pulse Rate 90 81 Respiratory Rate 14 18 Blood Pressure 136/108 H 136/81 H Blood Pressure Mean 117 99 Pulse Ox 100 98 Oxygen Delivery Method Nasal Cannula Nasal Cannula Oxygen Flow Rate (L/min) 2 2 Positive well nourished, well developed and no apparent distress General Appearance ED: well developed HEENT Reports normocephalic and head/scalp atraumatic Mouth ED: Yes moist mucous membranes normal Eyes PERRL and EOMs intact bilaterally Neck full ROM and supple Chest Wall inspection of chest normal Resp normal respiratory effort and clear to auscultation bilaterally Cardio regular rate and regular rhythm GI soft to palpation and no masses GI Narrative: Abdomen is distended, Generalized tenderness to palpation, no rigidity or guarding. Back/Spine normal ROM and normal to inspection Extremity normal to inspection and full ROM Neuro oriented x3, CN's II-XII intact bilaterally, moves all extremities, no focal motor deficits and no sensory deficits noted Sensorium / Orientation: awake and alert Psych mental status grossly normal and thought process normal Skin no rashes or lesions noted and no wounds <Dr. Alisa Guaman DO - Last Filed: 07/29/24 15:15> Physical Exam Const Vital Signs: 07/26/24 13:28 07/26/24 15:28 Temperature 96.9 F L Temperature Source Temporal Pulse Rate 90 81 Respiratory Rate 14 18 Blood Pressure 136/108 H 136/81 H Blood Pressure Mean 117 99 Pulse Ox 100 98 Oxygen Delivery Method Nasal Cannula Nasal Cannula Oxygen Flow Rate (L/min) 2 2 [facility] <GARY Rojas - Last Filed: 07/26/24 21:12> [facility] Narrative Medical decision making narrative: Patient presenting with generalized abdominal pain, nausea, vomiting, her symptoms started 2 days ago. She does have distention to her abdomen on exam. She denies any history of liver disease, ascites, or alcohol use. Abdominal labs obtained, her CBC is unremarkable, creatinine is 1.56 and BUN is 36, she does appear to have an JOSE, she will be given IV fluids. CT scan of the abdomenand pelvis shows a small bowel obstruction, no pneumoperitoneum. Dr. Parker consulted, he recommended an NG tube and admitting her to the hospital. Herpain is under control, she is doing well on reexamination. Will speak with hospitalist regarding admission. Lab Data Attestation: I reviewed the patient's lab results. Labs: Laboratory Results - last 24 hr 07/26/24 07/26/24 16:11 17:04 WBC 7.8 RBC 3.88 L Hgb 11.5 L Hct 35.1 L MCV 90.5 MCH 29.6 MCHC 32.8 RDW Std Deviation 46.1 H RDW Coeff of Alejandra 14.0 Plt Count 258 MPV 10.5 Immature Gran % (Auto) 0.500 Neut % (Auto) 72.8 H Lymph % (Auto) 14.4 L [place] % (Auto) 10.3 H Eos % (Auto) 1.5 Baso % (Auto) 0.5 Absolute Neuts (auto) 5.7 Absolute Lymphs (auto) 1.12 Nucleated RBC % 0 Platelet Estimate A RBC Morphology NORM C+C Sodium 142 Potassium 4.5 Chloride 97 L Carbon Dioxide 29.2 Anion Gap 15 BUN 36 H Creatinine 1.56 H Estim Creat Clear Calc 31.49 L Est GFR (MDRD) Non-Af 37 L BUN/Creatinine Ratio 23.2 H Glucose 116 H Calcium 9.3 Total Bilirubin 0.49 AST 29 ALT 12 Alkaline Phosphatase 101 Total Protein 7.9 Albumin 4.4 Globulin 3.5 Albumin/Globulin Ratio 1.3 Lipase 12 L Urine Color Yellow Urine Clarity Clear Urine pH 5.0 Ur Specific Taylor 1.015 Urine Protein 30 H Urine Glucose (UA) Normal Urine Ketones Negative Urine Occult Blood Negative Urine Nitrite Negative Urine Bilirubin 1 H Urine Urobilinogen Normal Ur Leukocyte Esterase Negative Urine RBC 0 SEEN Urine WBC 0-5 SEEN Ur Squamous Epith Cells 0-5 SEEN Urine Bacteria 2+ Urine Mucus 0 SEEN Radiography Diagnostic Testing: Clinical Impression(s) from Imaging Studies Abdomen/Pelvis CT 07/26/24 16:40 IMPRESSION: 1. Diffuse dilation of the small bowel, with the transition point within the distal duodenum within the left upper quadrant. No pneumoperitoneum. 2. Diffuse hepatic steatosis. 3. Stable bibasilar consolidations. Reading Location: [id number] <Dr. Alisa Guaman, DO - Last Filed: 07/29/24 15:15> [facility] Narrative Medical decision making narrative: Patient presenting with generalized abdominal pain, nausea, vomiting, her symptoms started 2 days ago. She does have distention to her abdomen on exam. She denies any history of liver disease, ascites, or alcohol use. Abdominal labs obtained, her CBC is unremarkable, creatinine is 1.56 and BUN is 36, she does appear to have an JOSE, she will be given IV fluids. CT scan of the abdomenand pelvis shows a small bowel obstruction, no pneumoperitoneum. Dr. Parker consulted, he recommended an NG tube and admitting her to the hospital. Herpain is under control, she is doing well on reexamination. Will speak with hospitalist regarding admission. I have personally performed a face to face assessment of the patient and have reviewed the KELLY Note. I performed a substantive portion of the visit including all aspects of the following. My stover findings include: History is patient is a 63-year-old female denies any surgical history but does have abdominal scar and then states that she thinks that she had a hernia repairat some point. She initially denied any history of any GI issues biotics after further discussion and then thinks that she maybe has had a small bowel obstruction in the past. She is presenting today with 2 days of abdominal discomfort, distention, nausea and vomiting. She tells me her last bowel movement 2 days ago. She thinks that she does pass gas but is not sure. Deniesany fever. On exam patient appears nontoxic. She has an odd affect. Mildly dry mucosal membranes. Abdomen is distended and mildly tympanic. She has high-pitched bowel sounds present. It is grossly nontender with no peritoneal findings. Differential include small bowel obstruction, colitis, diverticulitis, liver failure/ascites, volvulus as well as renal pathology. Patient is given IV fluids. She is not vomiting in the emergency room. CBC shows a mild anemia which appears to be near her baseline. No leukocytosis. CMP shows anelevation of her creatinine (1.56 where her baseline appears to be 0.98. This is consistent with an JOSE. Remainder of BMP largely unremarkable. CT of the abdomen and pelvis is consistent with small bowel obstruction however does comment that the transition point is at the distal duodenum within the leftupper quadrant. This is discussed with Dr. Paez, general surgeon on-call. He recommends admission to medicine service, NG tube and further observation. Case discussed with hospitalist, Dr. Joe for admission. Initially patient is quite irate/anxious about having an NG tube however she ultimately does consent and is placed in the emergency room. Patient maintained and was stable to emergency room. Given IV fluids in the ER. Other additions or changes: [None] Lab Data Labs: Laboratory Results - last 24 hr 07/26/24 07/26/24 16:11 17:04 WBC 7.8 RBC 3.88 L Hgb 11.5 L Hct 35.1 L MCV 90.5 MCH 29.6 MCHC 32.8 RDW Std Deviation 46.1 H RDW Coeff of Alejandra 14.0 Plt Count 258 MPV 10.5 Immature Gran % (Auto) 0.500 Neut % (Auto) 72.8 H Lymph % (Auto) 14.4 L [place] % (Auto) 10.3 H Eos % (Auto) 1.5 Baso % (Auto) 0.5 Absolute Neuts (auto) 5.7 Absolute Lymphs (auto) 1.12 Nucleated RBC % 0 Platelet Estimate A RBC Morphology NORM C+C Sodium 142 Potassium 4.5 Chloride 97 L Carbon Dioxide 29.2 Anion Gap 15 BUN 36 H Creatinine 1.56 H Estim Creat Clear Calc 31.49 L Est GFR (MDRD) Non-Af 37 L BUN/Creatinine Ratio 23.2 H Glucose 116 H Calcium 9.3 Total Bilirubin 0.49 AST 29 ALT 12 Alkaline Phosphatase 101 Total Protein 7.9 Albumin 4.4 Globulin 3.5 Albumin/Globulin Ratio 1.3 Lipase 12 L Urine Color Yellow Urine Clarity Clear Urine pH 5.0 Ur Specific Taylor 1.015 Urine Protein 30 H Urine Glucose (UA) Normal Urine Ketones Negative Urine Occult Blood Negative Urine Nitrite Negative Urine Bilirubin 1 H Urine Urobilinogen Normal Ur Leukocyte Esterase Negative Urine RBC 0 SEEN Urine WBC 0-5 SEEN Ur Squamous Epith Cells 0-5 SEEN Urine Bacteria 2+ Urine Mucus 0 SEEN Radiography Diagnostic Testing: Clinical Impression(s) from Imaging Studies Abdomen/Pelvis CT 07/26/24 16:40 IMPRESSION: 1. Diffuse dilation of the small bowel, with the transition point within the distal duodenum within the left upper quadrant. No pneumoperitoneum. 2. Diffuse hepatic steatosis. 3. Stable bibasilar consolidations. Reading Location: [id number] Discharge Plan Dx/Rx/DC Orders Clinical Impression: Small bowel obstruction, COPD (chronic obstructive pulmonary disease), JOSE (acute kidney injury) Disposition Disposition: Acute Care [facility] Discharge Date/Time: 07/26/24 20:06 What to do if you have Problems For any increased pain, shortness of breath, bleeding, nausea or vomiting, chest pain, or any unexpected problems, contact your Primary Care Provider. Call [facility] ([phone]) or report to the closest Emergency Room. Call 911 if necessary. 07/26/242111 <Electronically signed by Amy VEGA> Cosigner Signature (if applicable): 07/29/24 1515 <Electronically signed by Alisa Guaman DO> CC: VINYL DIPPER-C DALI RICE ~ Signed [facility] Work Phone: [phone] 268-765705-28-2025 Discharge summary [facility] Medical Records Department [address] [place] [address] Emergency Department Summary 07/26/24 MR#: [id number] Acct: [id number] Name: LEYDA LOPEZ Rep #:[id number] : 1960 63 From: Amy VEGA PCP: SHMUEL PAGAN Status:ADM IN Location: [facility] HPI HPI - GI History of Present Illness Chief Complaint: Abd Pain Narrative Narrative: Patient presenting today due to generalized abdominal pain, nausea, and vomiting. She reports that the pain started 2 days ago and the nausea and vomiting started last night. She has a history of umbilical hernia repair. Shedenies history of alcohol use, ascites, or liver disease. Her last bowel mov ement was 2 days ago, she denies stool changes. She additionally reports dysuria and has concerns for a UTI. She denies fevers, chills, hematemesis, andhematuria. She has a PMH of COPD on chronic supplemental O2, CAD, bipolar disorder, and HTN. [facility] Medical History (Updated 07/29/24 @ 15:[address] Alisa Guaman DO) CHF (congestive heart failure) Anxiety Depression [...] PO DAILY depre ssion 05/11/23 04/30/24 History hydroxyzine HCl 50 mg tablet [...] DAILY blood pressur e 06/04/23 04/30/24 History potassium chloride 20 mEq 20 meq PO DAILYCM diuretic u se #30 06/06/23 04/30/24 Rx tablet,extended release(part/cryst) tabs trazodone 50 mg tablet 50 mg PO QHS insomnia Unknown History albuterol sulfate 2.5 mg/3 mL 2.5 mg inhalation Q4H OK N PRN 07/26/24 Unknown History (0.083 %) solution for nebulization wheezing buspirone 10 mg tablet 10 mg PO TID mental health 0 07/26/24 Unknown History escitalopram oxalate 20 mg tablet 20 mg PO DAILY depre ssion 07/26/24 Unknown History (Lexapro) fluticasone 250 mcg-salmeterol 50 1 ea inhalation BID copd 07/26/24 Unknown History mcg/dose blistr powdr for inhalation furosemide 40 mg tablet 40 mg PO DAILY water pill Unknown History loperamide 2 mg capsule 2 mg PO TID PRN PRN diarrhea 07/26/24 Unknown History Allergy/AdvReac Type Severity Reaction Status [...] Respiratory/Chest: Denies dyspnea Gastrointestinal Gastrointestinal: Reports abdominal pain, constipation, nausea and vomiting; Denies diarrhea, hematochezia or melena Genitourinary Genitourinary ED: Reports dysuria; Denies hematuria Musculoskeletal Musculoskeletal: Denies back pain Integumentary Denies rash Neurologic Neurologic: Denies weakness EXAM Physical Exam Const Vital Signs: 07/26/24 13:28 07/26/24 15:28 Temperature 96.9 F L Temperature Source Temporal Pulse Rate 90 81 Respiratory Rate 14 18 Blood Pressure 136/108 H 136/81 H Blood Pressure Mean 117 99 Pulse Ox 100 98 Oxygen Delivery Method Nasal Cannula Nasal Cannula Oxygen Flow Rate (L/min) 2 2 Positive well nourished, well developed and no apparent distress General Appearance ED: well developed HEENT Reports normocephalic and head/scalp atraumatic Mouth ED: Yes moist mucous membranes normal Eyes PERRL and EOMs intact bilaterally Neck full ROM and supple Chest Wall inspection of chest normal Resp normal respiratory effort and clear to auscultation bilaterally Cardio regular rate and regular rhythm GI soft to palpation and no masses GI Narrative: Abdomen is distended, Generalized tenderness to palpation, no rigidity or guarding. Back/Spine normal ROM and normal to inspection Extremity normal to inspection and full ROM Neuro oriented x3, CN's II-XII intact bilaterally, moves all extremities, no focal motor deficits and no sensory deficits noted Sensorium / Orientation: awake and alert Psych mental status grossly normal and thought process normal Skin no rashes or lesions noted and no wounds Physical Exam Const Vital Signs: 07/26/24 13:28 07/26/24 15:28 Temperature 96.9 F L Temperature Source Temporal Pulse Rate 90 81 Respiratory Rate 14 18 Blood Pressure 136/108 H 136/81 H Blood Pressure Mean 117 99 Pulse Ox 100 98 Oxygen Delivery Method Nasal Cannula Nasal Cannula Oxygen Flow Rate (L/min) 2 2 MDM MDM MDM Narrative Medical decision making narrative: Patient presenting with generalized abdominal pain, nausea, vomiting, her symptoms started 2 days ago. She does have distention to her abdomen on exam. She denies any history of liver disease, ascites, or alcohol use. Abdominal labs obtained, her CBC is unremarkable, creatinine is 1.56 and BUN is 36, she does appear to have an JOSE, she will be given IV fluids. CT scan of the abdomenand pelvis shows a small bowel obstruction, no pneumoperitoneum. Dr. Parker consulted, he recommended an NGtube and admitting her to the hospital. Herpain is under control, she is doing well on reexamination. Will speak with hospitalist regarding admission. Lab Data Attestation: I reviewed the patient's lab results. Labs: Laboratory Results - last 24 hr 07/26/24 07/26/24 16:11 17:04 WBC 7.8 RBC 3.88 L Hgb 11.5 L Hct 35.1 L MCV 90.5 MCH 29.6 MCHC 32.8 RDW Std Deviation 46.1 H RDW Coeff of Alejandra 14.0 Plt Count 258 MPV 10.5 Immature Gran % (Auto) 0.500 Neut % (Auto) 72.8 H Lymph % (Auto) 14.4 L [place] % (Auto) 10.3 H Eos % (Auto) 1.5 Baso % (Auto) 0.5 Absolute Neuts (auto) 5.7 Absolute Lymphs (auto) 1.12 Nucleated RBC % 0 Platelet Estimate A RBC Morphology NORM C+C Sodium 142 Potassium 4.5 Chloride 97 L Carbon Dioxide 29.2 Anion Gap 15 BUN 36 H Creatinine 1.56 H Estim Creat Clear Calc 31.49 L Est GFR (MDRD) Non-Af 37 L BUN/Creatinine Ratio 23.2 H Glucose 116 H Calcium 9.3 Total Bilirubin 0.49 AST 29 ALT 12 Alkaline Phosphatase 101 Total Protein 7.9 Albumin 4.4 Globulin 3.5 Albumin/Globulin Ratio 1.3 Lipase 12 L Urine Color Yellow Urine Clarity Clear Urine pH 5.0 Ur Specific Taylor 1.015 Urine Protein 30 H Urine Glucose (UA) Normal Urine Ketones Negative Urine Occult Blood Negative Urine Nitrite Negative Urine Bilirubin 1 H Urine Urobilinogen Normal Ur Leukocyte Esterase Negative Urine RBC 0 SEEN Urine WBC 0-5 SEEN Ur Squamous Epith Cells 0-5 SEEN Urine Bacteria 2+ Urine Mucus 0 SEEN Radiography Diagnostic Testing: Clinical Impression(s) from Imaging Studies Abdomen/Pelvis CT 07/26/24 16:40 IMPRESSION: 1. Diffuse dilation of the small bowel, with the transition point within the distal duodenum withinthe left upper quadrant. No pneumoperitoneum. 2. Diffuse hepatic steatosis. 3. Stable bibasilar consolidations. Reading Location: [id number] MDM MDM Narrative Medical decision making narrative: Patient presenting with generalized abdominal pain, nausea, vomiting, her symptoms started 2 days ago. She does have distention to her abdomen on exam. She denies any history of liver disease, ascites, or alcohol use. Abdominal labs obtained, her CBC is unremarkable, creatinine is 1.56 and BUN is 36, she does appear to have an JOSE, she will be given IV fluids. CT scan of the abdomenand pelvis shows a small bowel obstruction, no pneumoperitoneum. Dr. Parker consulted, he recommended an NGtube and admitting her to the hospital. Herpain is under control, she is doing well on reexamination. Will speak with hospitalist regarding admission. I have personally performed a face to face assessment of the patient and have reviewed the KELLY Note. I performed a substantive portion of the visit including all aspects of the following. My stover findings include: History is patient is a 63-year-old female denies any surgical history but does have abdominal scarand then states that she thinks that she had a hernia repairat some point. She initially denied anyhistory of any GI issues biotics after further discussion and then thinks that she maybe has had a small bowel obstruction in the past. She is presenting today with 2 days of abdominal discomfort, distention, nausea and vomiting. She tells me her last bowel movement 2 days ago. She thinks that she does pass gas but is not sure. Deniesany fever. On exam patient appears nontoxic. She has an odd affect. Mildly dry mucosal membranes. Abdomen is distended and mildly tympanic. She has high-pitched bowel sounds present. It is grossly nontender with no peritoneal findings. Differential include small bowel obstruction, colitis, diverticulitis, liver failure/ascites, volvulus as well as renal pathology. Patient is given IV fluids. She is not vomiting in the emergency room. CBC shows a mild anemia which appears to be near her baseline. No leukocytosis. CMP shows anelevation of her creatinine (1.56 where her baseline appears to be 0.98. This is consistent with an JOSE. Remainder of BMP largely unremarkable. CT of the abdomen and pelvis is consistent with small bowel obstruction however does comment that the transition point is at the distal duodenum within the leftupper quadrant. This is discussed with Dr. Paez, general surgeon on- call. He recommends admission to medicine service, NG tube and further observation. Case discussed with hospitalist, Dr. Joe for admission. Initially patient is quite irate/anxious about having an NG tube however she ultimately does consent and is placed in the emergency room. Patient maintained and was stable to emergency room. Given IV fluids in the ER. Other additions or changes: [None] Lab Data Labs: Laboratory Results - last 24 hr 07/26/24 07/26/24 16:11 17:04 WBC 7.8 RBC 3.88 L Hgb 11.5 L Hct 35.1 L MCV 90.5 MCH 29.6 MCHC 32.8 RDW Std Deviation 46.1 H RDW Coeff of Alejandra 14.0 Plt Count 258 MPV 10.5 Immature Gran % (Auto) 0.500 Neut % (Auto) 72.8 H Lymph % (Auto) 14.4 L [place] % (Auto) 10.3 H Eos % (Auto) 1.5 Baso % (Auto) 0.5 Absolute Neuts (auto) 5.7 Absolute Lymphs (auto) 1.12 Nucleated RBC % 0 Platelet Estimate A RBC Morphology NORM C+C Sodium 142 Potassium 4.5 Chloride 97 L Carbon Dioxide 29.2 Anion Gap 15 BUN 36 H Creatinine 1.56 H Estim Creat Clear Calc 31.49 L Est GFR (MDRD) Non-Af 37 L BUN/Creatinine Ratio 23.2 H Glucose 116 H Calcium 9.3 Total Bilirubin 0.49 AST 29 ALT 12 Alkaline Phosphatase 101 Total Protein 7.9 Albumin 4.4 Globulin 3.5 Albumin/Globulin Ratio 1.3 Lipase 12 L Urine Color Yellow Urine Clarity Clear Urine pH 5.0 Ur Specific Taylor 1.015 Urine Protein 30 H Urine Glucose (UA) Normal Urine Ketones Negative Urine Occult Blood Negative Urine Nitrite Negative Urine Bilirubin 1 H Urine Urobilinogen Normal Ur Leukocyte Esterase Negative Urine RBC 0 SEEN Urine WBC 0-5 SEEN Ur Squamous Epith Cells 0-5 SEEN Urine Bacteria 2+ Urine Mucus 0 SEEN Radiography Diagnostic Testing: Clinical Impression(s) from Imaging Studies Abdomen/Pelvis CT 07/26/24 16:40 IMPRESSION: 1. Diffuse dilation of the small bowel, with the transition point within the distal duodenum withinthe left upper quadrant. No pneumoperitoneum. 2. Diffuse hepatic steatosis. 3. Stable bibasilar consolidations. Reading Location: [facility] Discharge Plan Dx/Rx/DC Orders Clinical Impression: Small bowel obstruction, COPD (chronic obstructive pulmonary disease), JOSE (acute kidney injury) Disposition Disposition: Acute Care [facility] Discharge Date/Time: 07/26/24 20:06 What to do if you have Problems For any increased pain, shortness of breath, bleeding, nausea or vomiting, chest pain, or any unexpected problems, contact your Primary Care Provider. Call [facility] ([phone]) or report to the closest Emergency Room. Call 911 if necessary. 07/26/242111 Cosigner Signature (if applicable): 07/29/24 1515 CC: VINYL DIPPER-C DALI RICE ~ Signed [facility]05-28-2025 Progress note Author Kalyan Bass [facility] Note Date/Time July 29, 2024 7:33a m [facility] Medical Records Department [address] [place] [address] Progress Note - Surgery 07/29/24 0731 MR#: [id number] Acct: [id number] Name: LEYDA LOPEZ Rep #:[id number] : 1960 63 From: Kalyan cunningham MD PCP: SHMUEL PAGAN Status:ADM IN Location: [facility] CP113-3 Subjective Subjective Patient has small bowel follow-through yesterday. It showed no obstruction and her NG was removed and she was started on clears. She tolerated clears. She ispassing flatus and had 3 bowel movements. Objective Data Objective Data Vital Signs: Vital Signs Temp Pulse Resp BP Pulse Ox O2 Del Method O2 Flow Rate 98 F 80 18 161/84 H 100 Nasal Cannula 2 07/29/24 05:20 07/29/24 05:20 07/29/24 05:20 07/29/24 05:20 07/29/24 05:20 07/29/24 05:20 07/29/24 05:20 Oxygen Flow Rate (L/min) 2 Oxygen Delivery Method Nasal Cannula Weight: 142 lb 6.698 oz Body Mass Index (BMI) 30.8 Intake & Output: Intake and Output for Last 24 Hours 07/27/24 07/28/24 07/29/24 23:59 23:59 23:59 Intake Total 3410 / 3410 3070 / 3070 1999 Output Total 1500 / 1500 2049 / 2049 Balance 1909 / 1909 1020 / 1020 1999 Lab / Micro Data 07/29/24 06:16 07/29/24 06:16 Labs: Laboratory Results - last 24 hr 07/29/24 06:16: WBC 8.2, RBC 2.95 L, Hgb 8.8 L, Hct 27.5 L, MCV 93.2, MCH 29.8, MCHC 32.0, RDW Std Deviation 46.0 H, RDW Coeff of Alejandra 13.4, Plt Count 163, MPV 10.8, Immature Gran % (Auto) 0.600, Neut % (Auto) 71.4 H, Lymph % (Auto) 14.6 L,[place] % (Auto) 8.6, Eos % (Auto) 4.6, Baso % (Auto) 0.2, Absolute Neuts (auto) 5.9, Absolute Lymphs (auto) 1.20, Nucleated RBC % 0, Sodium 143, Potassium 2.9 L, Chloride 108, Carbon Dioxide 25.6, Anion Gap 10, BUN 13, Creatinine 0.80, Estim Creat Clear Calc 60.38, Est GFR (MDRD) Non-Af 83, BUN/Creatinine Ratio 16.4, Glucose 100 H, Calcium 8.3 Radiography Diagnostic Testing: Radiology Impression Small Bowel X-Ray 07/28/24 07:10 IMPRESSION: No evidence of small-bowel obstruction at this time. Large amount of fecal material is seen in the colon. Reading Location: [facility]- Physical Exam Const oriented x3 and no apparent distress Resp normal respiratory effort GI soft to palpation and non-tender Assessment & Plan Assessment/Plan (1) Small bowel obstruction: PLAN: Patient had small bowel follow-through yesterday which was normal. She was started on clear liquids and tolerated this well. I will advance her to regular diet today. If she tolerates regular diet she can be discharged home from my standpoint. Follow-up as needed. Kalyan Bass MD Pager: [facility] [address] [place] [address], [address] [place] [address] Office: 07/29/24 [phone] <Electronically signed by Kalyan Bass MD> Cosigner Signature (if applicable): CC: ~ Signed [facility] Work Phone: 1(125) 884-600705-28-2025 Progress note [facility] Medical Records Department [address] [place] [address] Progress Note - Surgery 07/29/24730 MR#: [id number] Acct: [id number] Name: LEYDA LOPEZ Rep #:[id number] : 1960 63 From: Kalyan cunningham MD PCP: DALI RICE, VINYL DIPPER-C Status:ADM IN Location: MS3 GE312-6 Subjective Subjective Patient has small bowel follow-through yesterday. It showed no obstruction and her NG was removed and she was started on clears. She tolerated clears. She ispassing flatus and had 3 bowel movements. Objective Data Objective Data Vital Signs: Vital Signs Temp Pulse Resp BP Pulse Ox O2 Del Method O2 Flow Rate 98 F 80 18 161/84 H 100 Nasal Cannula 2 07/29/24 05:20 07/29/24 05:20 07/29/24 05:20 07/29/24 05:20 07/29/24 05:20 07/29/24 05:20 07/29/24 05:20 Oxygen Flow Rate (L/min) 2 Oxygen Delivery Method Nasal Cannula Weight: 142 lb 6.698 oz Body Mass Index (BMI) 30.8 Intake & Output: Intake and Output for Last 24 Hours 07/27/24 07/28/24 07/29/24 23:59 23:59 23:59 Intake Total 3410 / 3410 3070 / 3070 1999 Output Total 1500 / 1500 2049 / 2049 Balance 1909 / 1909 1020 / 1020 1999 Lab / Micro Data 07/29/24 06:16 07/29/24 06:16 Labs: Laboratory Results - last 24 hr 07/29/24 06:16: WBC 8.2, RBC 2.95 L, Hgb 8.8 L, Hct 27.5 L, MCV 93.2, MCH 29.8, MCHC 32.0, RDW Std Deviation 46.0 H, RDW Coeff of Alejandra 13.4, Plt Count 163, MPV 10.8, Immature Gran % (Auto) 0.600, Neut% (Auto) 71.4 H, Lymph % (Auto) 14.6 L,[place] % (Auto) 8.6, Eos % (Auto) 4.6, Baso % (Auto) 0.2, Absolute Neuts (auto) 5.9, Absolute Lymphs (auto) 1.20, Nucleated RBC % 0, Sodium 143, Potassium 2.9 L, Chloride 108, Carbon Dioxide 25.6, Anion Gap 10, BUN 13, Creatinine 0.80, Estim Creat Clear Calc 60.38, Est GFR (MDRD) Non-Af 83, BUN/Creatinine Ratio 16.4, Glucose 100 H, Calcium 8.3 Radiography Diagnostic Testing: Radiology Impression Small Bowel X-Ray 07/28/24 07:10 IMPRESSION: No evidence of small-bowel obstruction at this time. Large amount of fecal material is seen in the colon. [facility] Physical Exam Const oriented x3 and no apparent distress Resp normal respiratory effort GI soft to palpation and non-tender Assessment & Plan Assessment/Plan (1) Small bowel obstruction: PLAN: Patient had small bowel follow-through yesterday which was normal. She was started on clear liquids and tolerated this well. I will advance her to regular diet today. If she tolerates regular diet she can be discharged home from my standpoint. Follow-up as needed. Kalyan Bass MD Pager: [facility] [address] [place] [address], [address] [place] [address] Office: 07/29/24 [phone] Cosigner Signature (if applicable): CC: ~ Signed [facility]05-27-2025 Progress note Author Dolly Daniels [facility] Note Date/Time July 28, 2024 4:12p m [facility] Medical Records Department [address] [place] [address] Progress Note 07/28/24 1112 MR#: [id number] Acct: [id number] Name: LEYDA LOPEZ Rep #:[id number] : 1960 63 From: Dolly Daniels MD PCP: DALI RICE, VINYL DIPPER-C Status:ADM IN Location: [facility] [id number] Subjective Subjective Patient seen and examined. She looks very uncomfortable and was writhing in pain. She felt her abdomen was more distended and it did look more distended. She is having the small bowel follow-through. Blood pressure has been elevated in the 180s systolic. Radiology and general surgery okay with her resuming her meds for the NG tube was having the small bowel follow-through. Review of systems otherwise negative. Objective Data Objective Data Vital Signs: Vital Signs Temp Pulse Resp BP Pulse Ox O2 Del Method O2 Flow Rate 98.0 F 101 H 18 184/85 H 96 Nasal Cannula 3 07/28/24 08:13 07/28/24 08:13 07/28/24 08:13 07/28/24 08:13 07/28/24 08:13 07/28/24 08:13 07/28/24 08:13 Oxygen Flow Rate (L/min) 3 Oxygen Delivery Method Nasal Cannula Weight: 142 lb 6.698 oz Body Mass Index (BMI) 30.8 Intake & Output: Intake and Output for Last 24 Hours 07/26/24 07/27/24 07/28/24 23:59 23:59 23:59 Intake Total 1000 / 1000 3410 / 3410 1350 / 1350 Output Total 300 / 600 1500 / 1500 2000 / 2000 Balance 700 / 400 1910 / 1910 -650 / -650 Lab / Micro Data 07/28/24 04:26 07/28/24 04:26 Labs: Laboratory Results - last 24 hr 07/28/24 04:26: WBC 6.9, RBC 3.01 L, Hgb 9.1 L, Hct 28.3 L, MCV 94.0, MCH 30.2, MCHC 32.2, RDW Std Deviation 46.8 H, RDW Coeff of Alejandra 13.6, Plt Count 184, MPV 11.1, Immature Gran % (Auto) 0.400, Neut % (Auto) 68.7, Lymph % (Auto) 19.3, [place] % (Auto) 9.4, Eos % (Auto) 1.9, Baso % (Auto) 0.3, Absolute Neuts (auto) 4.8, Absolute Lymphs (auto) 1.34, Nucleated RBC % 0, Differential Comment SCANNED, Platelet Estimate ADEQUATE, RBC Morphology NORM C+C, Sodium 147 H, Potassium 4.2, Chloride 108, Carbon Dioxide 24.5, Anion Gap 14, BUN 25 H, Creatinine 1.03, Estim Creat Clear Calc 46.90 L, Est GFR (MDRD) Non-Af 61, BUN/Creatinine Ratio 23.8 H, Glucose 92, Calcium 8.9 Radiography Diagnostic Testing: Radiology Impression Small Bowel X-Ray 07/28/24 07:10 IMPRESSION: No evidence of small-bowel obstruction at this time. Large amount of fecal material is seen in the colon. Reading Location: [place] [address] Physical Exam Const alert, oriented x3 and no apparent distress Constitutional Narrative: frail General Appearance: cooperative and well developed HEENT normocephalic, head/scalp atraumatic and oropharynx normal Eyes PERRL and EOMs intact bilaterally Neck no lymphadenopathy, supple and no JVD Neck Narrative: No thyromegaly Lymph Lymphatic: no lymphadenopathy noted and no lymphedema noted Resp normal respiratory effort, normal air movement, no retractions, no use of accessory muscles and clear to auscultation bilaterally Cardio regular rate, regular rhythm, S1 normal heart sound, S2 normal heart sound and no murmurs GI GI Narrative: abdomen moderately distended, no guarding, tympanitic to touch. NG tube in situ draining bilious fluid. Abdomen mildly tender to touch Extremity normal to inspection, normal capillary refill, no clubbing, cyanosis or edema and no calf tenderness General Extremity: no tenderness to palpation of joints or extremities Skin General Skin Exam: no breakdown Neuro CN's II-XII intact bilaterally, moves all extremities, no focal motor deficits and no sensory deficits noted Sensorium / Orientation: awake and alert Motor Exam: strength 5/5 throughout and general weakness Psych thought process normal Activity / Motor Behavior: restless Mood & Affect: anxious Assessment & Plan Assessment/Plan (1) Small bowel obstruction: PLAN: Plan #Small bowel obstruction * Admitted with complaint of abdominal pain and distention. CT of the abdomen showed a small bowel obstruction. * She is abdominal pain is improved. NG tube still in situ draining bilious fluid. * Keep NPO. Continue hydration with IV fluid. General surgery on board. * having small bowel follow through today * #JOSE * resovled. Cr is down to 1.03. * #GERD: PPI #History of heart failure preserved ejection fraction: * Not in exacerbation. has known EF of 55% * Breathing treatments bronchodilators. #COPD: Not in exacerbation. Breathing treatment with bronchodilators. #Anxiety and depression: meds resumed; on buspirone and amitryptiline #Hypertension: lisinopril resumed. IV hydralazine prn #Depression: on SSR. #History of migraines: stable. Not having any active migraine now. DVT prophylaxis: lovenox Charges/Coding Visit Charges Inpatient E&M: 61259 Subs Hosp L2 07/28/24 1612 <Electronically signed by Dolly Daniels MD> Dolly Daniels MD Cosigner Signature (if applicable): CC: ~ Signed [facility] Work Phone: 1(119) 885-388605-27-2025 Progress note [facility] Medical Records Department [address] [place] [address] Progress Note 07/28/24 1112 MR#: [id number] Acct: [id number] Name: LEYDA LOPEZ Rep #:[id number] : 1960 63 From: Dolly Daniels MD PCP: DALI RICE VINYL DIPPER-C Status:ADM IN Location: [place] 750602-1 Subjective Subjective Patient seen and examined. She looks very uncomfortable and was writhing in pain. She felt her abdomen was more distended and it did look more distended. She is having the small bowel follow-through.Blood pressure has been elevated in the 180s systolic. Radiology and general surgery okay with her resuming her meds for the NG tube was having the small bowel follow-through. Review of systems otherwise negative. Objective Data Objective Data Vital Signs: Vital Signs Temp Pulse Resp BP Pulse Ox O2 Del Method O2 Flow Rate 98.0 F 101 H 18 184/85 H 96 Nasal Cannula 3 07/28/24 08:13 07/28/24 08:13 07/28/24 08:13 07/28/24 08:13 07/28/24 08:13 07/28/24 08:13 07/28/24 08:13 Oxygen Flow Rate (L/min) 3 Oxygen Delivery Method Nasal Cannula Weight: 142 lb 6.698 oz Body Mass Index (BMI) 30.8 Intake & Output: Intake and Output for Last 24 Hours 07/26/24 07/27/24 07/28/24 23:59 23:59 23:59 Intake Total 1000 / 1000 3410 / 3410 1350 / 1350 Output Total 300 / 600 1500 / 1500 2000 / 1999 Balance 700 / 400 1910 / 1910 -650 / -650 Lab / Micro Data 07/28/24 04:26 07/28/24 04:26 Labs: Laboratory Results - last 24 hr 07/28/24 04:26: WBC 6.9, RBC 3.01 L, Hgb 9.1 L, Hct 28.3 L, MCV 94.0, MCH 30.2, MCHC 32.2, RDW Std Deviation 46.8 H, RDW Coeff of Alejandra 13.6, Plt Count 184, MPV 11.1, Immature Gran % (Auto) 0.400, Neut% (Auto) 68.7, Lymph % (Auto) 19.3, [place] % (Auto) 9.4, Eos % (Auto) 1.9, Baso % (Auto) 0.3, Absolute Neuts (auto) 4.8, Absolute Lymphs (auto) 1.34, Nucleated RBC % 0, Differential Comment SCANNED, Platelet Estimate ADEQUATE, RBC Morphology NORM C+C, Sodium 147 H, Potassium 4.2, Chloride 108, CarbonDioxide 24.5, Anion Gap 14, BUN 25 H, Creatinine 1.03, Estim Creat Clear Calc 46.90 L, Est GFR (MDRD) Non-Af 61, BUN/Creatinine Ratio 23.8 H, Glucose 92, Calcium 8.9 Radiography Diagnostic Testing: Radiology Impression Small Bowel X-Ray 07/28/24 07:10 IMPRESSION: No evidence of small-bowel obstruction at this time. Large amount of fecal material is seen in the colon. Reading Location: [place] [address] Physical Exam Const alert, oriented x3 and no apparent distress Constitutional Narrative: frail General Appearance: cooperative and well developed HEENT normocephalic, head/scalp atraumatic and oropharynx normal Eyes PERRL and EOMs intact bilaterally Neck no lymphadenopathy, supple and no JVD Neck Narrative: No thyromegaly Lymph Lymphatic: no lymphadenopathy noted and no lymphedema noted Resp normal respiratory effort, normal air movement, no retractions, no use of accessory muscles and clear to auscultation bilaterally Cardio regular rate, regular rhythm, S1 normal heart sound, S2 normal heart sound and no murmurs GI GI Narrative: abdomen moderately distended, no guarding, tympanitic to touch. NG tube in situ draining bilious fluid. Abdomen mildly tender to touch Extremity normal to inspection, normal capillary refill, no clubbing, cyanosis or edema and no calf tenderness General Extremity: no tenderness to palpation of joints or extremities Skin General Skin Exam: no breakdown Neuro CN's II-XII intact bilaterally, moves all extremities, no focal motor deficits and no sensory deficits noted Sensorium / Orientation: awake and alert Motor Exam: strength 5/5 throughout and general weakness Psych thought process normal Activity / Motor Behavior: restless Mood & Affect: anxious Assessment & Plan Assessment/Plan (1) Small bowel obstruction: PLAN: Plan #Small bowel obstruction * Admitted with complaint of abdominal pain and distention. CT of the abdomen showed a small bowel obstruction. * She is abdominal pain is improved. NG tube still in situ draining bilious fluid. * Keep NPO. Continue hydration with IV fluid. General surgery on board. * having small bowel follow through today * #JOSE * resovled. Cr is down to 1.03. * #GERD: PPI #History of heart failure preserved ejection fraction: * Not in exacerbation. has known EF of 55% * Breathing treatments bronchodilators. #COPD: Not in exacerbation. Breathing treatment with bronchodilators. #Anxiety and depression: meds resumed; on buspirone and amitryptiline #Hypertension: lisinopril resumed. IV hydralazine prn #Depression: on SSR. #History of migraines: stable. Not having any active migraine now. DVT prophylaxis: lovenox Charges/Coding Visit Charges Inpatient E&M: [id number] [facility] Hosp L2 07/28/24 1612 Dolly Daniels MD Cosigner Signature (if applicable): CC: ~ Signed [facility]05-27-2025 Telephone encounter Note* Telephone Encounter - Cesia Steele LPN - 07/28/2024 3:34 PM EDT Faxed last [address] scan of head, per [employer] per request Attn: Radha Steele LPN July 28, 2024 3:34 PM [facility]05-27-2025 Miscellaneous Notes* Telephone Encounter - Cesia Steele LPN - 07/28/2024 3:34 PM EDT Faxed last [address] scan of head, per [facility] per request Attn: Radha Steele LPN July 28, 2024 3:34 PM * Telephone Encounter - Hilda Ibrahim RN - 07/24/2024 11:45 AM EDT Brionna Duenas psychologist with [facility] calling to request information to see if pt has had any testing or any upcoming testing for concerns regarding her cognitive thinking. Brionna states she faxed over a letter with a request for information to Dr. Palacio's office back on 06/08. No notes found inepic or anything under scanned documents. Asked that Brionna refax the information to me at [phone]. Did call the pt who confirms okay to speak with [facility] and especially Gwenashley Duenas. Pt states she is seeing Gwen this afternoon. Attempted to contact Gwen back to share information with her but no answer so left VM to return the call. [facility] Radiology Diagnostic study note [facility] Imaging Services [address] [place] [address] Small Bowel Series Only MR#: [id number] Acct: [id number] Name: LEYDA LOPEZ Rep #: [id number] : 1960 F 63 From: Casimiro Mariscal MD PCP: DALI RICE, VINYL DIPPER-C Status: ADM IN Study:Small Bowel Series Only Date of Exam: 07/28/24 Exam# [id number] Ordering Dr: Kalyan Mark MD PROCEDURE: SMALL BOWEL SERIES ONLY 07/28/2024 REASON FOR EXAM: SBO TECHNIQUE: Gastrografin was introduced through the nasogastric tube. Small bowel follow- through examination was obtained. COMPARISON: Prior radiograph dated July 26, 2024. FINDINGS: On the inpatient nursing aide view, a large amount of fecal material is seen in the colon. The small bowel gas is unremarkable. Small bowel follow-through examination was performed. There is evidence of a small diverticulum in the 3rd portion of the duodenum. Small bowel measures upper limits of normal. Contrast is seen withinthe entire colon at 3hours. RAD/Small Bowel Series Only IMPRESSION: No evidence of small-bowel obstruction at this time. Large amount of fecal material is seen in the colon. Reading Location: [place] [address] CC: VINYL DIPPER-C DALI RICE; Dr. Kalyan Bass MD ~ Coil Builder: Signed [facility]05-27-2025 Progress note Author Kalyan Bass [facility] Note Date/Time July 28, 2024 7:14a m [facility] Medical Records Department [address] [place] [address] Progress Note - Surgery 07/28/24 0713 MR#: [id number] Acct: [id number] Name: LEYDA LOPEZ Rep #:[id number] : 1960 63 From: Kalyan cunningham MD PCP: SHMUEL PAGAN Status:ADM IN Location: [facility] [id number] Subjective Subjective Patient is not reporting any flatus. She denies abdominal pain. Objective Data Objective Data Vital Signs: Vital Signs Temp Pulse Resp BP Pulse Ox O2 Del Method O2 Flow Rate 98.4 F 81 16 182/107 H 97 Nasal Cannula 2 07/28/24 04:17 07/28/24 06:56 07/28/24 04:17 07/28/24 06:56 07/28/24 04:17 07/28/24 04:17 07/28/24 04:17 Oxygen Flow Rate (L/min) 2 Oxygen Delivery Method Nasal Cannula Weight: 142 lb 6.698 oz Body Mass Index (BMI) 30.8 Intake & Output: Intake and Output for Last 24 Hours 07/26/24 07/27/24 07/28/24 23:59 23:59 23:59 Intake Total 1000 / 1000 3410 / 3410 350 / 350 Output Total 300 / 600 1500 / 1500 2000 / 2000 Balance 700 / 400 1910 / 1910 -1650 / -1650 Lab / Micro Data 07/28/24 04:26 07/28/24 04:26 Labs: Laboratory Results - last 24 hr 07/28/24 04:26: WBC 6.9, RBC 3.01 L, Hgb 9.1 L, Hct 28.3 L, MCV 94.0, MCH 30.2, MCHC 32.2, RDW Std Deviation 46.8 H, RDW Coeff of Alejandra 13.6, Plt Count 184, MPV 11.1, Immature Gran % (Auto) 0.400, Neut % (Auto) 68.7, Lymph % (Auto) 19.3, [place] % (Auto) 9.4, Eos % (Auto) 1.9, Baso % (Auto) 0.3, Absolute Neuts (auto) 4.8, Absolute Lymphs (auto) 1.34, Nucleated RBC % 0, Differential Comment SCANNED, Platelet Estimate ADEQUATE, RBC Morphology NORM C+C, Sodium 147 H, Potassium 4.2, Chloride 108, Carbon Dioxide 24.5, Anion Gap 14, BUN 25 H, Creatinine 1.03, Estim Creat Clear Calc 46.90 L, Est GFR (MDRD) Non-Af 61, BUN/Creatinine Ratio 23.8 H, Glucose 92, Calcium 8.9 Physical Exam Const oriented x3 and no apparent distress Resp normal respiratory effort GI soft to palpation Inspection: abdominal distention Assessment & Plan Assessment/Plan (1) Small bowel obstruction: PLAN: The patient is still distended. She does not report flatus. I will ordera small bowel follow-through today via the NG. 07/28/24713 <Electronically signed by Kalyan Bass MD> Cosigner Signature (if applicable): CC: ~ Signed [facility] Work Phone: 1(148) 746-866905-27-2025 Progress note [facility] Department [address] [place] [address] Progress Note - Surgery 07/28/24 0713 MR#: [id number] Acct: [id number] Name: LEYDA LOPEZ Rep #:[id number] : 1960 63 From: Kalyan cunningham MD PCP: DALI RICE, VINYL DIPPER-C Status:ADM IN Location: [facility] [id number] Subjective Subjective Patient is not reporting any flatus. She denies abdominal pain. Objective Data Objective Data Vital Signs: Vital Signs Temp Pulse Resp BP Pulse Ox O2 Del Method O2 Flow Rate 98.4 F 81 16 182/107 H 97 Nasal Cannula 2 07/28/24 04:17 07/28/24 06:56 07/28/24 04:17 07/28/24 06:56 07/28/24 04:17 07/28/24 04:17 07/28/24 04:17 Oxygen Flow Rate (L/min) 2 Oxygen Delivery Method Nasal Cannula Weight: 142 lb 6.698 oz Body Mass Index (BMI) 30.8 Intake & Output: Intake and Output for Last 24 Hours 07/26/24 07/27/24 07/28/24 23:59 23:59 23:59 Intake Total 1000 / 1000 3410 / 3410 350 / 350 Output Total 300 / 600 1500 / 1500 2000 / 2000 Balance 700 / 400 1910 / 1910 -1650 / -1650 Lab / Micro Data 07/28/24 04:26 07/28/24 04:26 Labs: Laboratory Results - last 24 hr 07/28/24 04:26: WBC 6.9, RBC 3.01 L, Hgb 9.1 L, Hct 28.3 L, MCV 94.0, MCH 30.2, MCHC 32.2, RDW Std Deviation 46.8 H, RDW Coeff of Alejandra 13.6, Plt Count 184, MPV 11.1, Immature Gran % (Auto) 0.400, Neut% (Auto) 68.7, Lymph % (Auto) 19.3, [place] % (Auto) 9.4, Eos % (Auto) 1.9, Baso % (Auto) 0.3, Absolute Neuts (auto) 4.8, Absolute Lymphs (auto) 1.34, Nucleated RBC % 0, Differential Comment SCANNED, Platelet Estimate ADEQUATE, RBC Morphology NORM C+C, Sodium 147 H, Potassium 4.2, Chloride 108, CarbonDioxide 24.5, Anion Gap 14, BUN 25 H, Creatinine 1.03, Estim Creat Clear Calc 46.90 L, Est GFR (MDRD) Non-Af 61, BUN/Creatinine Ratio 23.8 H, Glucose 92, Calcium 8.9 Physical Exam Const oriented x3 and no apparent distress Resp normal respiratory effort GI soft to palpation Inspection: abdominal distention Assessment & Plan Assessment/Plan (1) Small bowel obstruction: PLAN: The patient is still distended. She does not report flatus. I will ordera small bowel follow-through today via the NG. 07/28/24 0714 Cosigner Signature (if applicable): CC: ~ Signed [facility]05-26-2025 Progress note Author [facility]olly [facility] Note Date/Time July 27, 2024 2:02p [facility] Medical Records Department [address] [place] [address] Progress Note 07/27/24 1349 MR#: [id number] Acct: [id number] Name: LEYDA LOPEZ Rep #:[id number] : 1960 63 From: Dolly Daniels MD PCP: DALI RICE VINYL DIPPER-C Status:ADM IN [facility] Subject[facility] Subjective Patient seen and examined. She still complained of feeling bloated. She is passing gas. She has the NG tube in situ which is still draining bilious fluid. She has a mild fever of 99.2F today. Review of sytems is otherwise negative. Objective Data Objective Data Vital Signs: Vital Signs Temp Pulse Resp BP Pulse Ox O2 Del Method O2 Flow Rate 99.2 F H 84 18 104/60 95 Nasal Cannula 3 07/27/24 08:39 07/27/24 08:39 07/27/24 08:39 07/27/24 08:39 07/27/24 08:39 07/27/24 08:39 07/27/24 08:39 Oxygen Flow Rate (L/min) 3 Oxygen Delivery Method Nasal Cannula Weight: 142 lb 6.698 oz Body Mass Index (BMI) 30.8 Intake & Output: Intake and Output for Last 24 Hours 07/25/24 07/26/24 07/27/24 23:59 23:59 23:59 Intake Total 1000 / 1000 1000 / 1000 Output Total 300 / 600 700 / 700 Balance 700 / 400 300 / 300 Lab / Micro Data 07/27/24 05:26 07/27/24 05:26 Labs: Laboratory Results - last 24 hr 07/26/24 16:11: WBC 7.8, RBC 3.88 L, Hgb 11.5 L, Hct 35.1 L, MCV 90.5, MCH 29.6,MCHC 32.8, RDW Std Deviation 46.1 H, RDW Coeff of Alejandra 14.0, Plt Count 258, MPV 10.5, Immature Gran % (Auto) 0.500, Neut % (Auto) 72.8 H, Lymph % (Auto) 14.4 L,[place] % (Auto) 10.3 H, Eos % (Auto) [...] Clarity Clear, Urine pH 5.0, Ur Specific Taylor 1.015, Urine Protein 30 H, Urine Glucose (UA) Normal, Urine Ketones Negative, Urine Occult Blood Negative, Urine Nitrite Negative, Urine Bilirubin 1 H, Urine Urobilinogen Normal, Ur Leukocyte Esterase Negative, Urine RBC 0 SEEN, Urine WBC 0-5 SEEN, Ur Squamous Epith Cells 0-5 SEEN, Urine Bacteria2+, Urine Mucus 0 SEEN 07/27/24 05:26: WBC 5.8, RBC 3.10 L, Hgb 9.2 L, Hct 28.4 L, MCV 91.6, MCH 29.7, MCHC 32.4, RDW Std Deviation 46.8 H, RDW Coeff of Alejandra 14.1, Plt Count 211, MPV 10.4, Immature Gran % (Auto) 0.200, Neut % (Auto) 59.7, Lymph % (Auto) 21.2, [place] % (Auto) 12.3 H, Eos % (Auto) 6.1 H, Baso % (Auto) 0.5, Absolute Neuts (auto) 3.4, Absolute Lymphs (auto) 1.22, Nucleated RBC % 0, Differential CommentSCANNED, Sodium 143, Potassium 4.1, Chloride 106, Carbon Dioxide 26.1, Anion Gap11, BUN 35 H, Creatinine 1.36 H, Estim Creat Clear Calc 35.52 L, Est GFR (MDRD) Non-Af 44 L, BUN/Creatinine Ratio 26.0 H, Glucose 111 H, Calcium 8.2 Radiography Diagnostic Testing: Radiology Impression Abdomen/Pelvis CT 07/26/24 16:40 IMPRESSION: 1. Diffuse dilation of the small bowel, with the transition point within the distal duodenum within the left upper quadrant. No pneumoperitoneum. 2. Diffuse hepatic steatosis. 3. Stable bibasilar consolidations. Reading Location: [facility] KUB X-Ray 07/26/24 18:50 IMPRESSION: Interval gastric tube placement as described. Reading Location: [facility] Physical Exam Const alert, oriented x3 and no apparent distress Constitutional Narrative: frail General Appearance: cooperative and well developed HEENT normocephalic, head/scalp atraumatic and oropharynx normal HEENT Narrative: dry oral mucosa Eyes PERRL and EOMs intact bilaterally Neck no lymphadenopathy, supple and no JVD Lymph Lymphatic: no lymphadenopathy noted and no lymphedema noted Resp normal respiratory effort, normal air movement and clear to auscultation bilaterally Cardio regular rate, regular rhythm, S1 normal heart sound, S2 normal heart sound and no murmurs GI GI Narrative: abdomen mildly distended, no guarding, tympanitic to touch. NG tube in situ draining bilious fluid. Extremity normal capillary refill, no clubbing, cyanosis or edema and no calf tenderness General Extremity: no tenderness to palpation of joints or extremities Skin General Skin Exam: no breakdown Neuro CN's II-XII intact bilaterally, no focal motor deficits and no sensory deficits noted Motor Exam: strength 5/5 throughout and general weakness Psych thought process normal, cooperative and affect normal Appearance: appropriate Assessment & Plan Assessment/Plan (1) Small bowel obstruction: PLAN: Plan #Small bowel obstruction * Admitted with complaint of abdominal pain and distention. CT of the abdomen showed a small bowel obstruction. * She is abdominal pain is improved. NG tube still in situ draining bilious fluid. * Keep NPO. Continue hydration with IV fluid. General surgery on board. * To have KUB follow-through tomorrow. * #JOSE * Cr is 1.36, was 1.56 yesterday. * Baseline Cr is 0.98. Will continue hydration and monitor. * #GERD: PPI #History of CAD: #History of heart failure preserved ejection fraction: * Not in exacerbation. has known EF of 55% * Breathing treatments bronchodilators. #COPD: Not in exacerbation. Breathing treatment with bronchodilators. #Anxiety and depression: #Hypertension: lisinopril held as patient is NPO #Depression: on SSR. #History of migraines: stable. Not having any active migraine now. DVT prophylaxis: lovenox Charges/Coding Visit Charges Inpatient E&M: 72170 Subs Hosp L2 07/27/24 1402 <Electronically signed by Dolly Daniels MD> Dolly Daniels MD Cosigner Signature (if applicable): CC: ~ Signed [facility] Work Phone: 1(224) 243-749105-26-2025 Progress note [facility] Medical Records Department [address] [place] [address] Progress Note 07/27/24 1349 MR#: [id number] Acct: [id number] Name: LEYDA LOPEZ Rep #:[id number] : 1960 63 From: Dolly Daniels MD PCP: DALI RICE, VINYL DIPPER-C Status:ADM IN Location: IN3 CT806-4 Subjective Subjective Patient seen and examined. She still complained of feeling bloated. She is passing gas. She has theNG tube in situ which is still draining bilious fluid. She has a mild fever of 99.2F today. Review of sytems is otherwise negative. Objective Data Objective Data Vital Signs: Vital Signs Temp Pulse Resp BP Pulse Ox O2 Del Method O2 Flow Rate 99.2 F H 84 18 104/60 95 Nasal Cannula 3 07/27/24 08:39 07/27/24 08:39 07/27/24 08:39 07/27/24 08:39 07/27/24 08:39 07/27/24 08:39 07/27/24 08:39 Oxygen Flow Rate (L/min) 3 Oxygen Delivery Method Nasal Cannula Weight: 142 lb 6.698 oz Body Mass Index (BMI) 30.8 Intake & Output: Intake and Output for Last 24 Hours 07/25/24 07/26/24 07/27/24 23:59 23:59 23:59 Intake Total 1000 / 1000 1000 / 1000 Output Total 300 / 600 700 / 700 Balance 700 / 400 300 / 300 Lab / Micro Data 07/27/24 05:26 07/27/24 05:26 Labs: Laboratory Results - last 24 hr 07/26/24 16:11: WBC 7.8, RBC 3.88 L, Hgb 11.5 L, Hct 35.1 L, MCV 90.5, MCH 29.6,MCHC 32.8, RDW Std Deviation 46.1 H, RDW Coeff of Alejandra 14.0, Plt Count 258, MPV 10.5, Immature Gran % (Auto) 0.500, Neut% (Auto) 72.8 H, Lymph % (Auto) 14.4 L,[place] % (Auto) 10.3 H, Eos % (Auto) [...] Clarity Clear, Urine pH 5.0, Ur Specific Taylor 1.015, Urine Protein 30 H, Urine Glucose (UA) Normal, Urine Ketones Negative, Urine Occult Blood Negative, Urine Nitrite Negative, Urine Bilirubin 1 H, Urine Urobilinogen Normal, Ur Leukocyte Esterase Negative, Urine RBC 0 SEEN, Urine WBC 0-5 SEEN, Ur Squamous Epith Cells 0-5 SEEN, Urine Bacteria2+, Urine Mucus 0 SEEN 07/27/24 05:26: WBC 5.8, RBC 3.10 L, Hgb 9.2 L, Hct 28.4 L, MCV 91.6, MCH 29.7, MCHC 32.4, RDW Std Deviation 46.8 H, RDW Coeff of Alejandra 14.1, Plt Count 211, MPV 10.4, Immature Gran % (Auto) 0.200, Neut% (Auto) 59.7, Lymph % (Auto) 21.2, [place] % (Auto) 12.3 H, Eos % (Auto) 6.1 H, Baso % (Auto) 0.5, Absolute Neuts (auto) 3.4, Absolute Lymphs (auto) 1.22, Nucleated RBC % 0, Differential CommentSCANNED, Sodium 143, Potassium 4.1, Chloride 106, Carbon Dioxide 26.1, Anion Gap11, BUN 35 H, Creatinine 1.36 H, Estim Creat Clear Calc 35.52 L, Est GFR (MDRD) Non-Af 44 L, BUN/Creatinine Ratio 26.0 H, Glucose 111 H, Calcium 8.2 Radiography Diagnostic Testing: Radiology Impression Abdomen/Pelvis CT 07/26/24 16:40 IMPRESSION: 1. Diffuse dilation of the small bowel, with the transition point within the distal duodenum withinthe left upper quadrant. No pneumoperitoneum. 2. Diffuse hepatic steatosis. 3. Stable bibasilar consolidations. Reading Location: [facility] KUB X-Ray 07/26/24 18:50 IMPRESSION: Interval gastric tube placement as described. Reading Location: [facility] Physical Exam Const alert, oriented x3 and no apparent distress Constitutional Narrative: frail General Appearance: cooperative and well developed HEENT normocephalic, head/scalp atraumatic and oropharynx normal HEENT Narrative: dry oral mucosa Eyes PERRL and EOMs intact bilaterally Neck no lymphadenopathy, supple and no JVD Lymph Lymphatic: no lymphadenopathy noted and no lymphedema noted Resp normal respiratory effort, normal air movement and clear to auscultation bilaterally Cardio regular rate, regular rhythm, S1 normal heart sound, S2 normal heart sound and no murmurs GI GI Narrative: abdomen mildly distended, no guarding, tympanitic to touch. NG tube in situ draining bilious fluid. Extremity normal capillary refill, no clubbing, cyanosis or edema and no calf tenderness General Extremity: no tenderness to palpation of joints or extremities Skin General Skin Exam: no breakdown Neuro CN's II-XII intact bilaterally, no focal motor deficits and no sensory deficits noted Motor Exam: strength 5/5 throughout and general weakness Psych thought process normal, cooperative and affect normal Appearance: appropriate Assessment & Plan Assessment/Plan (1) Small bowel obstruction: PLAN: Plan #Small bowel obstruction * Admitted with complaint of abdominal pain and distention. CT of the abdomen showed a small bowel obstruction. * She is abdominal pain is improved. NG tube still in situ draining bilious fluid. * Keep NPO. Continue hydration with IV fluid. General surgery on board. * To have KUB follow-through tomorrow. * #JOSE * Cr is 1.36, was 1.56 yesterday. * Baseline Cr is 0.98. Will continue hydration and monitor. * #GERD: PPI #History of CAD: #History of heart failure preserved ejection fraction: * Not in exacerbation. has known EF of 55% * Breathing treatments bronchodilators. #COPD: Not in exacerbation. Breathing treatment with bronchodilators. #Anxiety and depression: #Hypertension: lisinopril held as patient is NPO #Depression: on SSR. #History of migraines: stable. Not having any active migraine now. DVT prophylaxis: lovenox Charges/Coding Visit Charges Inpatient E&M: 20677 Subs Hosp L2 07/27/24 1404 Dolly Daniels MD Cosigner Signature (if applicable): CC: ~ Signed [facility]05-26-2025 Consult note Author Kalyan Bass [facility] Note Date/Time July 27, 2024 7:27a m [facility] Medical Records Department [address] [place] [address] Consultation - Surgical 07/27/24 0724 MR#: [id number] Acct: [id number] Name: LEYDA LOPEZ Rep #:[id number] : 1960 63 From: Kalyan cunningham MD PCP: DALI RICE, VINYL DIPPER-C Status:ADM IN Location: IN3 FD324-5 Assessment & Plan Assessment/Plan (1) Small bowel [...] bowel follow-through tomorrow. Kalyan Bass MD Pager: [facility] [address] [place] [address], [address] [place] [address] Office: HPI Consult Data Date of Consult: [...] She says she is passing flatus. She hasnot had a bowel movement. She denies nausea but she does have an NG tube in place. [facility] Medical History (Updated 07/26/24 @ 21:11 [...] PO DAILY depre ssion 05/11/23 04/30/24 History hydroxyzine HCl 50 mg tablet [...] DAILY blood pressur e 06/04/23 04/30/24 History potassium chloride 20 mEq 20 meq PO DAILYCM diuretic u se #30 06/06/23 04/30/24 Rx tablet,extended release(part/cryst) tabs trazodone 50 mg tablet 50 mg PO QHS insomnia Unknown History albuterol sulfate 2.5 mg/3 mL 2.5 mg inhalation Q4H OK N PRN 07/26/24 Unknown History (0.083 %) solution for nebulization wheezing buspirone 10 mg tablet 10 mg PO TID mental health 0 07/26/24 Unknown History escitalopram oxalate 20 mg tablet 20 mg PO DAILY depre ssion 07/26/24 Unknown History (Lexapro) fluticasone 250 mcg-salmeterol 50 1 ea inhalation BID copd 07/26/24 Unknown History mcg/dose blistr powdr for inhalation furosemide 40 mg tablet 40 mg PO DAILY water pill Unknown History loperamide 2 mg capsule 2 mg PO TID PRN PRN diarrhea 07/26/24 Unknown History Allergy/AdvReac Type Severity Reaction Status [...] Former smoker substance use type: marijuana ROS Constitutional Constitutional: Denies anorexia, chills, fatigue or fever(s) Eyes Eyes: Denies blurry vision ENT HEENT: Denies abnormal hearing Cardiovascular Cardiovascular: Denies chest pain Respiratory/Chest Respiratory/Chest: Denies cough Gastrointestinal Gastrointestinal: Reports abdominal pain, nausea and vomiting; Denies constipation Genitourinary Genitourinary: Denies change in urinary stream Musculoskeletal Musculoskeletal: Denies abnormal gait Integumentary Integumentary: Denies jaundice Neurologic Neurologic: Denies abnormal gait Physical Exam Const alert and oriented x3 HEENT normocephalic Eyes PERRL Resp normal respiratory effort Cardio Rate: regular rate Rhythm: regular rhythm GI soft to palpation Inspection: abdominal distention Palpation: tender Lab / Micro Data 07/27/24 05:26 07/27/24 05:26 Labs: Laboratory Results - last 24 hr 07/26/24 16:11: WBC 7.8, RBC 3.88 L, Hgb 11.5 L, Hct 35.1 L, MCV 90.5, MCH 29.6,MCHC 32.8, RDW Std Deviation 46.1 H, RDW Coeff of Alejandra 14.0, Plt Count 258, MPV 10.5, Immature Gran % (Auto) 0.500, Neut % (Auto) 72.8 H, Lymph % (Auto) 14.4 L,[place] % (Auto) 10.3 H, Eos % (Auto) [...] Clarity Clear, Urine pH 5.0, Ur Specific Taylor 1.015, Urine Protein 30 H, Urine Glucose (UA) Normal, Urine Ketones Negative, Urine Occult Blood Negative, Urine Nitrite Negative, Urine Bilirubin 1 H, Urine Urobilinogen Normal, Ur Leukocyte Esterase Negative, Urine RBC 0 SEEN, Urine WBC 0-5 SEEN, Ur Squamous Epith Cells 0-5 SEEN, Urine Bacteria2+, Urine Mucus 0 SEEN 07/27/24 05:26: WBC 5.8, RBC 3.10 L, Hgb 9.2 L, Hct 28.4 L, MCV 91.6, MCH 29.7, MCHC 32.4, RDW Std Deviation 46.8 H, RDW Coeff of Alejandra 14.1, Plt Count 211, MPV 10.4, Immature Gran % (Auto) 0.200, Neut % (Auto) 59.7, Lymph % (Auto) 21.2, [place] % (Auto) 12.3 H, Eos % (Auto) 6.1 H, Baso % (Auto) 0.5, Absolute Neuts (auto) 3.4, Absolute Lymphs (auto) 1.22, Nucleated RBC % 0, Differential CommentSCANNED, Sodium 143, Potassium 4.1, Chloride 106, Carbon Dioxide 26.1, Anion Gap11, BUN 35 H, Creatinine 1.36 H, Estim Creat Clear Calc 35.52 L, Est GFR (MDRD) Non-Af 44 L, BUN/Creatinine Ratio 26.0 H, Glucose 111 H, Calcium 8.2 Imaging Radiology Impression Abdomen/Pelvis CT 07/26/24 16:40 IMPRESSION: 1. Diffuse dilation of the small bowel, with the transition point within the distal duodenum within the left upper quadrant. No pneumoperitoneum. 2. Diffuse hepatic steatosis. 3. Stable bibasilar consolidations. Reading Location: [facility] KUB X-Ray 07/26/24 18:50 IMPRESSION: Interval gastric tube placement as described. Reading Location: [facility] 07/27/24 0763 <Electronically signed by Kalyan Bass MD> Cosigner Signature (if applicable): CC: VINYL DIPPER-C DALI RICE~ Signed [facility] Work Phone: 1(500) 374-409205-26-2025 Consult note [facility] Medical Records Department [address] [place] [address] Consultation - Surgical 07/27/24 07 MR#: [id number] Acct: [id number] Name: LEYDA LOPEZ Rep #:[id number] : 1960 63 From: Kalyan cunningham MD PCP: SHMUEL PAGAN Status:ADM IN Location: MS3 [id number] Assessment & Plan Assessment/Plan (1) Small bowel obstruction: PLAN: The patient has abdominal pain with distention. I reviewed her CT scan and it shows distention of the small bowel. They originally called the transition point of the duodenum but I believe thisis a typo in the CT scan. The patient reports that she is passing flatus and feeling less distended. She still has an NG tube in place. I will order her some ice chips per her request. Continue NG suction. The output is still very dark. Plan for small bowel follow-through tomorrow. Kalyan Bass MD Pager: [facility] [address] [place] [address], [address] [place] [address] Office: HPI Consult Data Date of Consult: [...] She says she is passing flatus. She hasnot had a bowel movement. She denies nausea but she does have an NG tube in place. [facility] Medical History (Updated 07/26/24 @ 21:11 [...] PO DAILY depre ssion 05/11/23 04/30/24 History hydroxyzine HCl 50 mg tablet [...] DAILY blood pressur e 06/04/23 04/30/24 History potassium chloride 20 mEq 20 meq PO DAILYCM diuretic u se #30 06/06/23 04/30/24 Rx tablet,extended release(part/cryst) tabs trazodone 50 mg tablet 50 mg PO QHS insomnia Unknown History albuterol sulfate 2.5 mg/3 mL 2.5 mg inhalation Q4H OK N PRN 07/26/24 Unknown History (0.083 %) solution for nebulization wheezing buspirone 10 mg tablet 10 mg PO TID mental health 0 07/26/24 Unknown History escitalopram oxalate 20 mg tablet 20 mg PO DAILY depre ssion 07/26/24 Unknown History (Lexapro) fluticasone 250 mcg-salmeterol 50 1 ea inhalation BID copd 07/26/24 Unknown History mcg/dose blistr powdr for inhalation furosemide 40 mg tablet 40 mg PO DAILY water pill Unknown History loperamide 2 mg capsule 2 mg PO TID PRN PRN diarrhea 07/26/24 Unknown History Allergy/AdvReac Type Severity Reaction Status [...] Former smoker substance use type: marijuana ROS Constitutional Constitutional: Denies anorexia, chills, fatigue or fever(s) Eyes Eyes: Denies blurry vision ENT HEENT: Denies abnormal hearing Cardiovascular Cardiovascular: Denies chest pain Respiratory/Chest Respiratory/Chest: Denies cough Gastrointestinal Gastrointestinal: Reports abdominal pain, nausea and vomiting; Denies constipation Genitourinary Genitourinary: Denies change in urinary stream Musculoskeletal Musculoskeletal: Denies abnormal gait Integumentary Integumentary: Denies jaundice Neurologic Neurologic: Denies abnormal gait Physical Exam Const alert and oriented x3 HEENT normocephalic Eyes PERRL Resp normal respiratory effort Cardio Rate: regular rate Rhythm: regular rhythm GI soft to palpation Inspection: abdominal distention Palpation: tender Lab / Micro Data 07/27/24 05:26 07/27/24 05:26 Labs: Laboratory Results - last 24 hr 07/26/24 16:11: WBC 7.8, RBC 3.88 L, Hgb 11.5 L, Hct 35.1 L, MCV 90.5, MCH 29.6,MCHC 32.8, RDW Std Deviation 46.1 H, RDW Coeff of Alejandra 14.0, Plt Count 258, MPV 10.5, Immature Gran % (Auto) 0.500, Neut% (Auto) 72.8 H, Lymph % (Auto) 14.4 L,[place] % (Auto) 10.3 H, Eos % (Auto) [...] Clarity Clear, Urine pH 5.0, Ur Specific Taylor 1.015, Urine Protein 30 H, Urine Glucose (UA) Normal, Urine Ketones Negative, Urine Occult Blood Negative, Urine Nitrite Negative, Urine Bilirubin 1 H, Urine Urobilinogen Normal, Ur Leukocyte Esterase Negative, Urine RBC 0 SEEN, Urine WBC 0-5 SEEN, Ur Squamous Epith Cells 0-5 SEEN, Urine Bacteria2+, Urine Mucus 0 SEEN 07/27/24 05:26: WBC 5.8, RBC 3.10 L, Hgb 9.2 L, Hct 28.4 L, MCV 91.6, MCH 29.7, MCHC 32.4, RDW Std Deviation 46.8 H, RDW Coeff of Alejandra 14.1, Plt Count 211, MPV 10.4, Immature Gran % (Auto) 0.200, Neut% (Auto) 59.7, Lymph % (Auto) 21.2, [place] % (Auto) 12.3 H, Eos % (Auto) 6.1 H, Baso % (Auto) 0.5, Absolute Neuts (auto) 3.4, Absolute Lymphs (auto) 1.22, Nucleated RBC % 0, Differential CommentSCANNED, Sodium 143, Potassium 4.1, Chloride 106, Carbon Dioxide 26.1, Anion Gap11, BUN 35 H, Creatinine 1.36 H, Estim Creat Clear Calc 35.52 L, Est GFR (MDRD) Non-Af 44 L, BUN/Creatinine Ratio 26.0 H, Glucose 111 H, Calcium 8.2 Imaging Radiology Impression Abdomen/Pelvis CT 07/26/24 16:40 IMPRESSION: 1. Diffuse dilation of the small bowel, with the transition point within the distal duodenum withinthe left upper quadrant. No pneumoperitoneum. 2. Diffuse hepatic steatosis. 3. Stable bibasilar consolidations. Reading Location: [facility] KUB X-Ray 07/26/24 18:50 IMPRESSION: Interval gastric tube placement as described. Reading Location: [facility] 07/27/24 0727 Cosigner Signature (if applicable): CC: VINYL DIPPER-C DALI RICE~ Signed [facility]05-25-2025 History and physical note Author Linwood Joe [facility] Note Date/Time July 26, 2024 6:34p [facility] Medical Records Department [address] [place] [address] H&P Exam - Hospitalist 07/26/24 1827 MR#: [id number] Acct: [id number] Name: LEYAD LOPEZ Rep #:[id number] : 1960 63 From: Linwood Joe DO PCP: SHMUEL PAGAN Status:REG ER [...] she has had a hernia repair surgery. [facility] Medical History CHF (congestive heart failure) [...] (Auto) 72.8 H, Lymph % (Auto) 14.4 L,[place] % (Auto) 10.3 H, Eos % (Auto) [...] Clarity Clear, Urine pH 5.0, Ur Specific Taylor 1.015, Urine Protein 30 H, Urine Glucose [...] steatosis. 3. Stable bibasilar consolidations. Reading Location: [id number] Assessment & Plan Assessment/Plan (1) Small bowel [...] full code. Charges/Coding Visit Charges Inpatient E&M: 44765 Init Hosp L3 07/26/24 1834 <Electronically signed by Linwood Joe DO> Cosigner Signature (if applicable): CC: VINYL DIPPERGabriella RICE; Dr. Linwood Joe DO~ Signed [facility] Work Phone: 1(600) 294-282905-25-2025 Radiology Diagnostic study note [facility] Imaging Services [address] [place], [place] [id number] Abdomen Single View (Portable) MR#: [id number] Acct: [id number] Name: LEYDA LOPEZ Rep #: [id number] : 1960 F 63 From: Leslye Shields MD PCP: SHMUEL PAGAN Status: ADM IN Study:Abdomen Single View (Portable) Date of Exam: 07/26/24 Exam# [id number] Ordering Dr: Amy Jay PROCEDURE: ABDOMEN SINGLE [...] gastric tube placement as described. Reading Location: [id number] CC: SHMUEL RICE; GARY Rojas ~ Coil Builder: Signed [facility]05-25-2025 History and physical note [facility] Medical Records Department [address] [place] [address] H&P Exam - Hospitalist 07/26/24 1827 MR#: [id number] Acct: [id number] Name: JOHN,LEYDA L Rep #:[id number] : 1960 63 From: Linwood Joe DO PCP: DALI RICE VINYL DIPPER-C Status:REG ER Location: ED HPI - General General Date of Service: 07/26/24 Chief Complaint: abdominal pain HPI Narrative LEYDA LOPEZ, is a 63 F who presents with 2 days of abdominal pain. Abdomen has become more distended and more painful. Presented to the emergency room and she had a CAT scan that showed a smallbowel obstruction. Dr. Bass general surgery, was contacted and recommended NG tube and that surgery would be consultation. They mentioned NG tube for the patient and she became very emotionallylabile and declined NG tube. I went there later discusswith the patient and patient had another person in the room who was called and patient did agree to get NG tube placed. Patient states that she has had a remote history of a small bowel obstruction in the past. States that she has had a hernia repair surgery. [facility] Medical History CHF (congestive heart failure) [...] MPV 10.5, Immature Gran % (Auto) 0.500, Neut% (Auto) 72.8 H, Lymph % (Auto) 14.4 L,[place] % (Auto) 10.3 H, Eos % (Auto) [...] Clarity Clear, Urine pH 5.0, Ur Specific Taylor 1.015, Urine Protein 30 H, Urine Glucose [...] the transition point within the distal duodenum withinthe left upper quadrant. No pneumoperitoneum. 2. Diffuse hepatic steatosis. 3. Stable bibasilar consolidations. Reading Location: [id number] Assessment & Plan Assessment/Plan (1) Small bowel [...] full code. Charges/Coding Visit Charges Inpatient E&M: 44755 Init Hosp 07/26/24 8174 Cosigner Signature (if applicable): CC: VINYL DIPPER-C DALI RICE; Dr. Linwood Joe, DO~ Signed [facility]05-25-2025 Radiology Diagnostic study note [facility] Imaging Services [address] [place] [address] Abdomen/Pelvis W IV Cont ONLY MR#: [id number] Acct: [id number] Name: LEYDA LOPEZ Rep #: [id number] : 1960 F 63 From: Leslye Shields MD PCP: DALI RICE, VINYL DIPPER-C Status: REG ER Study:Abdomen/Pelvis W IV Cont ONLY Date of E xam: 07/26/24 Exam# [id number] Ordering Dr: Amy Jay PROCEDURE: ABDOMEN/PELVIS W [...] the transition point within the distal duodenum withinthe left upper quadrant. No pneumoperitoneum. 2. Diffuse hepatic steatosis. 3. Stable bibasilar consolidations. Reading Location: [id number] CC: SHMUEL RICE; GARY Rojas ~ Coil Builder: Signed [facility]05-23-2025 Telephone encounter Note* Telephone Encounter - Hilda Ibrahim RN - 07/24/2024 11:45 AM EDT Brionna Duenas psychologist with [employer] calling to request information to see if pt has had any testing or any upcoming testing for concerns regarding her cognitive thinking. Brionna states she faxed over a letter with a request for information to Dr. Palacio's office back on 06/08. No notes found inepic or anything under scanned documents. Asked that Brionna refax the information to me at [phone]. Did call the pt who confirms okay to speak with Jeramy and especially Gwen Duenas. Pt states she is seeing Gwen this afternoon. Attempted to contact Gwen back to share information with her but no answer so left VM to return the call. [facility]05-16-2025 Telephone encounter Note* Telephone Encounter - Cheri Valenzuela MA - 07/17/2024 5:19 PM EDT The following approved medication requests have been transmitted electronically. Requested Prescriptions Signed Prescriptions Disp Refills SUMAtriptan (IMITREX) 50 mg tablet 9 tablet 5 Sig: Take 1 tablet by mouth as needed for migraine headache (see administration instructions). START AT ONSET OF HEADACHE. MAY REPEAT DOSE AFTER 2 HOURS. Authorizing Provider: VELVET PALACIO MA [facility]05-16-2025 Miscellaneous Notes* Telephone Encounter - Cheri Valenzuela MA - 07/17/2024 5:19 PM EDT The following approved medication requests have been transmitted electronically. Requested Prescriptions Signed Prescriptions Disp Refills SUMAtriptan (IMITREX) 50 mg tablet 9 tablet 5 Sig: Take 1 tablet by mouth as needed for migraine headache (see administration instructions). START AT ONSET OF HEADACHE. MAY REPEAT DOSE AFTER 2 HOURS. Authorizing Provider: VELVET PALACIO MA * Telephone Encounter - Ca Valenzuela RN - 07/17/2024 3:53 PM EDT The patient has been identified [...] 17, 2024 3:53 PM [facility] Telephone encounter Note * Telephone Encounter - Ca Valenzuela RN - 07/17/2024 3:53 PM EDT The patient has been identified [...] completely out of medication and requesting refill. Mara Adhikari Spoke to Alicia who reports that current refill from 06/01/2024 is out of refills. Medication was filled on 06/03, 06/07,06/17,06/27, and 07/03. Ca Valenzuela RN July 17, 2024 3:53 PM [facility]05-08-2025 History of Present illness Narrative* Azeb Paez RT(R) - 07/09/2024 2:00 PM EDT Radiology Service Progress Note [...] Assigned female at . status: : No status:NO. PATIENT RELEVANT IMPLANT DATA REVIEWED: Yes PATIENT PRESENTS WITH AN IMPLANTABLE OR ATTACHED LAND LEVELER: No RADIOLOGY DEPARTMENT: CT; Exam(s) Completed: Brain PERIPHERAL IV DATA: Not applicable SIGNED BY: LILIBETH Drummond) July 09, 2024 2:50 PM documented in this encounterMansfield Hospital05-08-2025 NoteHNO ID: [id number] Author: AZEB PAEZ RT(R) Service: ? Author Type: Flight Surgeon Type: Progress Notes Filed: 07/09/2024 14:51 Note [...] PATIENT PRESENTS WITH AN IMPLANTABLE OR ATTACHED LAND LEVELER: No RADIOLOGY DEPARTMENT: CT; Exam(s) Completed: Brain PERIPHERAL IV DATA: Not applicable SIGNED BY: RT Bhanu(Velia) July 09, 2024 2:50 [facility]05-07-2025 Telephone encounter Note * Telephone Encounter - Dali Rice APRN.CNP - 07/08/2024 8:32 AM EDT Sent with specifications of what is needed Dali Rice APRN.CNP [facility]05-07-2025 Miscellaneous Notes* Telephone Encounter - Dali Rice APRN.CNP - 07/08/2024 8:32 AM EDT Sent with specifications of what is needed Dali Rice APRN.CNP * Telephone Encounter - Suellen Zaragoza LPN - 07/06/2024 4:58 PM EDT Pt calls to report she does not need the whole nebulizer kit that was ordered. Pt reports she only needs the mask and the little cup. [facility] Suellen Zaragoza LPN documented in this encounterMansfield Hospital05-06-2025 Telephone encounter Note * Telephone Encounter - Ca Valenzuela RN - 07/07/2024 11:19 AM EDT Patient calls to check on request. Notified it was pending provider review. Patient requests this be taken care of ESTHELA as she is completely out and has 6 other prescriptions to picking tech and doesn't want to make multiple trips. Ca Valenzuela RN [facility]05-06-2025 Miscellaneous Notes* Telephone Encounter - Ca Valenzuela RN - 07/07/2024 11:19 AM EDT Patient calls to check on request. Notified it was pending provider review. Patient requests this be taken care of ESTHELA as she is completely out and has 6 other prescriptions to picking tech and doesn't want to make multiple trips. Ca Valenzuela RN * Telephone Encounter - Kellen Alexandra LPN - 07/06/2024 4:09 PM EDT The patient has been identified [...] 06, 2024 4:12 PM documented in this encounterMansfield Hospital05-05-2025 Telephone encounter Note * Telephone Encounter - Suellen Zaragoza LPN - 07/06/2024 4:58 PM EDT Pt calls to report she does not need the whole nebulizer kit that was ordered. Pt reports she only needs the mask and the little cup. [facility] Su[facility] LPN [facility]05-05-2025 Telephone encounter Note* Telephone Encounter - Kellen Alexandra LPN - 07/06/2024 4:09 PM EDT The patient has been identified [...] Alexandra LPN July 06, 2024 4:12 PM [facility]05-01-2025 Telephone encounter Note* Telephone Encounter - Ca Valenzuela RN - 07/02/2024 11:12 AM EDT Patient calls and notified of results and providers instructions. Patient verbalizes understanding.Offered to schedule lab appt. Patient uncertain when she will be able to come in so will walk in. Ca Valenzuela RN [facility]05-01-2025 Miscellaneous Notes* Telephone Encounter - Ca Valenzuela RN - 07/02/2024 11:12 AM EDT Patient calls and notified of results and providers instructions. Patient verbalizes understanding.Offered to schedule lab appt. Patient uncertain when she will be able to come in so will walk in. Ca Valenzuela RN * Telephone Encounter - Michelle Beckham MA - 07/01/2024 12:50 PM EDT Left message for return call. * Telephone Encounter - Dali Rice APRN.MARIETTA - 07/01/2024 12:00 PM EDT Patient is anemic. I would like to do further blood work to evaluate the cause along with a stool sample to look for hidden blood. The rest of blood work can be discussed at her follow up. Thank you Dali Rice APRN.CNP documented in this encounterMansfield Hospital04-30-2025 Telephone encounter Note * Telephone Encounter - Dali Rice APRN.CNP - 07/01/2024 1:53 PM EDT See Results follow up from today Dali Rice APRN.CNP [facility]04-30-2025 Miscellaneous Notes* Telephone Encounter - Dali Rice APRN.CNP - 07/01/2024 1:53 PM EDT See Results follow up from today Dali Rice APRN.CNP * Telephone Encounter - Kellen Alexandra LPN - 06/30/2024 10:29 AM EDT Patient calling asking for her lab results, concerned since can she on her my chart says abnormal results. Aware computer shows 5 tests are still in process not completed as yet, may be tomorrow before results are all back. Aware VINYL DIPPER is out of the office today. Please advise documented in this encounterMansfield Hospital04-30-2025 Telephone encounter Note * Telephone Encounter - Michelle Beckham MA - 07/01/2024 12:50 PM EDT Left message for return call. [facility]04-30-2025 Telephone encounter Note* Telephone Encounter - Dali Rice APRN.CNP - 07/01/2024 12:00 PM EDT Patient is anemic. I would like to do further blood work to evaluate the cause along with a stool sample to look for hidden blood. The rest of blood work can be discussed at her follow up. Thank you Dali Rice APRN.CNP [facility]04-29-2025 Telephone encounter Note* Telephone Encounter - Kellen Alexandra LPN - 06/30/2024 10:29 AM EDT Patient calling asking for her lab results, concerned since can she on her my chart says abnormal results. Aware computer shows 5 tests are still in process not completed as yet, may be tomorrow before results are all back. Aware VINYL DIPPER is out of the office today. Please advise [facility]04-28-2025 Instructions* Patient Instructions* Dali Rice APRN.CNP - 06/29/2024 3:33 PM [...] and discuss next steps. documented in this encounterMansfield Hospital04-28-2025 NoteHNO ID: [id number] Author: DALI RICE APRN.CNP Service: ? Author [...] depression since this occurred. Also reports her veterans service officer wants to put her in a usp because she can't care for herself Lives with her boyfriend who at last visit stated, he has noticed her memory issues for years but states today that it comes and goes. Recording using [employer] software for draft documentation of the visit was discussed with the patient/authorized personal financial representative; all questions welcomed and answered. Patient/authorized personal financial representative agreed to proceed Memory Changes: - Onset over the past 1.5 years. - Boyfriend has noticed memory issues for a while but did not initially bring it up. - Some days are better than others; recent visit noted as worse than today. - Recent stress from transport corps officer threatening usp placement due to perceived inability to care [...] pain chronic-Seeing Dr. Blankenship Bipolar affective disorder ([facility]) Chronic right shoulder pain Seeing Dr. Molina Closed dislocation of tarsometatarsal (joint) 01/18/2011 COPD (chronic obstructive pulmonary disease) ([facility]) Depressive disorder, not elsewhere classified 03/22/2005 Disorder of bone and cartilage, unspecified 02/09/2008 Distal radius fracture 01/05/2011 Dysuria Fibromyalgia GERD (gastroesophageal reflux disease) IBS (irritable bowel syndrome) Mitral regurgitation Severe Neck pain chronic-takes vicodin for this NSTEMI (non-ST elevated myocardial infarction) ([facility]) Seeing Dr. Hutton Other and unspecified hyperlipidemia Panic disorder without agoraphobia 03/22/2005 PMR (polymyalgia rheumatica) ([facility]) RA (rheumatoid arthritis) (HCC) Unspecified essential hypertension [...] by mouth once d (more content not included)...[facility]04-28-2025 History of Present illness Narrative* Older, Dali, 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 ASSOCIATE.BULK PLANT AGENT - 06/29/2024 3:19 PM EDT CC: Patient presents with: Recheck: 3 month follow up HPI Leyda Lopez is a 63 year old female who presents today for memory concerns. Patient is seeingpsychologist post psych hospitalization for suicidal ideations and feels she has underlying dementia. Does have history of marijuana and small amount of meth use but denies usage for months. Did losecustody of her adult daughter last year and has struggled with depression since this occurred. Alsoreports her veterans service officer wants to put her in a usp because she can't care for herself Lives with her boyfriend who at last visit stated, he has noticed her memory issues for years but states today that it comes and goes. Recording using [employer] software for draft documentation of the visit was discussed with the patient/authorized personal financial representative; all questions welcomed and answered. Patient/authorized personal financial representative agreed to proceed Memory Changes: - Onset over the past 1.5 years. - Boyfriend has noticed memory issues for a while but did not initially bring it up. - Some days are better than others; recent visit noted as worse than today. - Recent stress from transport corps officer threatening usp placement due to perceived inability to care [...] work for memory issues ordered so they couldbe reviewed at this visit but was not drawn as ordered until right before this visit. In looking back I am not sure she ever established with pulmonology as previously ordered last yeareither. REVIEW OF SYSTEMS See HPI PAST MEDICAL [...] for this NSTEMI (non-ST elevated myocardial infarction) ([facility]) Seeing Dr. Hutton Other and unspecified hyperlipidemia Panic disorder without agoraphobia 03/22/2005 PMR (polymyalgia rheumatica) ([facility]) RA (rheumatoid arthritis) ([facility]) Unspecified essential hypertension 03/22/2005 PAST SURGICAL HISTORY [...] COPD Mother Breast Cancer Mother Heart Father [place] COPD Father other (Pulmonary fibrosis) Father Social [...] pink and moist, no icterus, sclera white, non- injected. Has trouble with eye contact terminal computer operator with makes checking EOMs difficult Lungs: Lungs [...] and a half, with variable presentation; recent evaluationby psychologist at [address] [place] [id number] suggested dementia. Per patient her veterans service officer has concerns as well. Boyfriend in [...] plan. Dali Rice APRN.CNP documented in this encounterMansfield Hospital04-18-2025 History of Present illness Narrative* Yumiko Toney Tech - 06/19/2024 10:50 AM EDT Radiology Service Progress Note PATIENT [...] Assigned female at . status: : No status:NO. PATIENT RELEVANT IMPLANT DATA REVIEWED: Not Applicable PATIENT PRESENTS WITH AN IMPLANTABLE OR ATTACHED LAND LEVELER: No RADIOLOGY DEPARTMENT: General X-ray: Exam(s) Completed: Chest X-Ray PERIPHERAL IV DATA: Not applicable SIGNED BY: Desiree Prince June 19, 2024 10:45 AM documented in this encounterMansfield Hospital04-18-2025 NoteHNO ID: [id number] Author: YUMIKO TONEY Tech Service: ? Author [...] PATIENT PRESENTS WITH AN IMPLANTABLE OR ATTACHED LAND LEVELER: No RADIOLOGY DEPARTMENT: General X-ray: Exam(s) Completed: Chest X-Ray PERIPHERAL IV DATA: Not applicable SIGNED BY: Desiree Prince June 19, 2024 10:[address] [facility]04-18-2025 Instructions* Patient Instructions* Dali Rice APRN.CNP - 06/19/2024 10:34 AM EDT A nebulizer kit for albuterol has been ordered and will be sent to [facility]. Use this treatment as directed when you [...] the emergency room immediately. documented in this encounterMansfield Hospital04-18-2025 NoteHNO ID: [id number] Author: DALI RICE APRN.CNP Service: ? Author Type: Nurse Practitioner Type: Progress Notes Filed: 06/19/2024 11:25 Note Text: CC: Patient presents with: Recheck: Medication follow up HPI Leyda Lopez is a 63 year old female who presents today for COPD concerns. Recording using [employer] software for draft documentation of the visit was discussed with the patient/authorized personal financial representative; all questions welcomed and answered. Patient/authorized personal financial representative agreed to proceed COPD: - Hospitalized for COPD exacerbation approximately one month ago; treated with azithromycin and prednisone. Purvis better when on prednisone and would like [...] pain chronic-Seeing Dr. Blankenship Bipolar affective disorder ([facility]) Chronic right shoulder pain Seeing Dr. Molina Closed dislocation of tarsometatarsal (joint) 01/18/2011 COPD (chronic obstructive pulmonary disease) ([facility]) Depressive disorder, not elsewhere classified 03/22/2005 Disorder of bone and cartilage, unspecified 02/09/2008 Distal radius fracture 01/05/2011 Dysuria Fibromyalgia GERD (gastroesophageal reflux disease) IBS (irritable bowel syndrome) Mitral regurgitation Severe Neck pain chronic-takes vicodin for this NSTEMI (non-ST elevated myocardial infarction) ([facility]) Seeing Dr. Hutton Other and unspecified hyperlipidemia Panic disorder without agoraphobia 03/22/2005 PMR (polymyalgia rheumatica) ([facility]) RA (rheumatoid arthritis) ([facility]) Unspecified essential hypertension 03/22/2005 PAST SURGICAL HISTORY [...] ONSET OF HEADACHE. JULY (more content not included)...[facility]04-18-2025 History of Present illness Narrative* Dali Rice APRN.[facility] - 06/19/2024 10:33 AM EDT CC: Patient presents with: Recheck: Medication follow up HPI Leyda Lopez is a 63 year old female who presents today for COPD concerns. Recording using [employer] software for draft documentation of the visit was discussed with the patient/authorized personal financial representative; all questions welcomed and answered. Patient/authorized personal financial representative agreed to proceed COPD: - Hospitalized for COPD exacerbation approximately one month ago; treated with azithromycin and prednisone. Purvis better when on prednisone and would like [...] patient was very poor historian on her concernsand boyfriend was trying to explain what patient needed. Has appointment to discuss this further laly psychiatrist called with concerns of this recently as well. Currently denies meth usage and states she is just under a lot of stress and is depressed due to her adult disabled daughter being removed from her home and resulting financial issues. - Noted memory changes over the past year and a half. Per boyfriend he has noticed this for a whilebut never brought it up. - No recent brain imaging performed. - No scheduled neurology appointment. REVIEW OF SYSTEMS See HPI PAST MEDICAL HISTORY Diagnosis Date Abdominal pain, right upper quadrant ADD (attention deficit disorder) Seeing psychiatry Anemia, unspecified Asthma Back pain chronic-Seeing Dr. Blankenship Bipolar affective disorder ([facility]) Chronic right shoulder pain Seeing Dr. Molina Closed dislocation of tarsometatarsal (joint) 01/18/2011 COPD (chronic obstructive pulmonary disease) ([facility]) Depressive disorder, not elsewhere classified 03/22/2005 Disorder of bone and cartilage, unspecified 02/09/2008 Distal radius fracture 01/05/2011 Dysuria Fibromyalgia GERD (gastroesophageal reflux disease) IBS (irritable bowel syndrome) Mitral regurgitation Severe Neck pain chronic-takes vicodin for this NSTEMI (non-ST elevated myocardial infarction) ([facility]) Seeing Dr. Hutton Other and unspecified hyperlipidemia Panic disorder without agoraphobia 03/22/2005 PMR (polymyalgia rheumatica) ([facility]) RA (rheumatoid arthritis) ([facility]) Unspecified essential hypertension 03/22/2005 PAST SURGICAL HISTORY [...] COPD Mother Breast Cancer Mother Heart Father [place] COPD Father other (Pulmonary fibrosis) Father Social [...] albuterol nebulizer to be picked up at [facility]. She needs this as she has difficulty [...] of prednisone on cognitive function; decided against prescribingadditional steroids at this time. - Referred to [...] plan. Dali Rice APRN.CNP documented in this encounterMansfield Hospital04-16-2025 Telephone encounter Note * Telephone Encounter - Ca Valenzuela RN - 06/17/2024 3:08 PM EDT Patient returns call and message reviewed. Patient reports she is still having some SOB at times but not all the time. Still requests prednisone and agreeable to appointment to be evaluated. Patient also had questions about nebulizer supplies. Will check with [email or web address] since that is where prescription was sent and let us know if it needs to be sent to [facility]. Patient also asking about switching medications to [facility] pharmacy that pre- packages medications. She said it was discussed at her last OV. OV scheduled to discuss. Ca Valenzuela RN [facility]04-16-2025 Miscellaneous Notes* Telephone Encounter - Ca Valenzuela RN - 06/17/2024 3:08 PM EDT Patient returns call and message reviewed. Patient [...] about switching medications to [facility] pharmacy that pre- packages medications. She said it was discussed at her last OV. OV scheduled to discuss. Ca Valenzuela, RN * Telephone Encounter - Dali Rice APRN.CNP - 06/17/2024 9:31 AM EDT She was just seen for pneumonia. She needs seen if her breathing is not right. Thank you Dali Rice APRN.CNP * Telephone Encounter - Leola Shelley LPN - 06/17/2024 8:34 AM EDT Patient has been identified by [...] you. Leola Shelley LPN. documented in this encounterMansfield Hospital04-16-2025 Telephone encounter Note * Telephone Encounter - Dali Rice APRN.CNP - 06/17/2024 9:31 AM EDT She was just seen for pneumonia. She needs seen if her breathing is not right. Thank you Dali Rice APRN.CNP [facility]04-16-2025 Telephone encounter Note* Telephone Encounter - Leola Shelley LPN - 06/17/2024 8:34 AM EDT Patient has been identified by [...] Please advise. Thank you. Leola Shelley LPN. [facility]04-16-2025 Telephone encounter Note* Telephone Encounter - Leola Shelley LPN - 06/17/2024 8:30 AM EDT Patient has been identified by [...] Please advise. Thank you. Leola Shelley LPN. [facility]04-16-2025 Miscellaneous Notes* Telephone Encounter - Leola Shelley LPN - 06/17/2024 8:30 AM EDT Patient has been identified by [...] you. Leola Shelley LPN. documented in this encounterMansfield Hospital04-15-2025 NotePatient Outreach (INTMMN) LEYDA LOPEZ ([id number]) 1960 F Date Time Provider Department 06/16/24 [facility] INTMMN During your visit today, we recorded [...] fatigue,sleepy Date Reviewed: 05/23/2024 Reviewed by: Sreekanth Spears RN - Fully Assessed Visit Diagnoses:CKD (chronic kidney disease) stage 3, GFR 30-59 ml/min (HCC) [N18.30] Obesity [E66.9] Hyperlipidemia [E78.5] Order(s):ALBUMIN/CREATININE RATIO, URINE [SQUACR] Order #: [id number] FUTURE HEMOGLOBIN A1C [TNPFF8H] Order #: [id number] FUTURE LIPID PANEL, FASTING [SQLIPB] Order #: [id number] FUTURE Prescriptions as of 06/19/2024 - busPIRone [...] Calcaneal spur [M77.30] 01/08/2011 Chronic pain [G89.29] more content not included)...[facility]04-14-2025 Telephone encounter Note* Telephone Encounter - Leola Shelley LPN - 06/15/2024 3:24 PM EDT Patient has been identified by [...] Please advise. Thank you. Leola Shelley LPN. [facility]04-14-2025 Miscellaneous Notes* Telephone Encounter - Leola Shelley LPN - 06/15/2024 3:24 PM EDT Patient has been identified by [...] you. Leola Shelley LPN. documented in this encounterMansfield Hospital03-31-2025 Telephone encounter Note * Telephone Encounter - Kellen Alexandra LPN - 06/01/2024 11:24 AM EDT Patient calling she is not wanting to use [facility] she wants to stay with [facility] pharmacy. She got her last refill on [...] Alexandra LPN June 01, 2024 11:26 AM [facility]03-31-2025 Miscellaneous Notes* Telephone Encounter - Kellen Alexandra LPN - 06/01/2024 11:24 AM EDT Patient calling she is not wanting to use [facility] she wants to stay with [facility] pharmacy. She got her last refill on [...] 01, 2024 11:26 AM documented in this encounterMansfield Hospital03-22-2025 Telephone encounter Note * Telephone Encounter - Montse Hopkins RN - 05/23/2024 4:22 PM EDT Reason for Call: error [facility]03-22-2025 Miscellaneous Notes* Telephone Encounter - Montse Hopkins RN - 05/23/2024 4:22 PM EDT Reason for Call: error documented in this encounterMansfield Hospital03-22-2025 Telephone encounter Note * Telephone Encounter - Lo Nguyễn RN - 05/23/2024 3:59 PM EDT Patient calling with request for medication transfer Patient denies any new or worsening symptoms of which a provider is not aware: No. Needs migraine medicine [facility]03-22-2025 Miscellaneous Notes* Telephone Encounter - Lo Nguyễn RN - 05/23/2024 3:59 PM EDT Patient calling with request for medication transfer Patient denies any new or worsening symptoms of which a provider is not aware: No. Needs migraine medicine transferred to [facility]. [facility]. documented in this encounterMansfield Hospital03-22-2025 Telephone encounter Note * Telephone Encounter - Sreekanth Spears RN - 05/23/2024 3:28 PM EDT Patient calling with request for refill of immitrex. Patient states her medicines [facility] and she has a migraine and needs immitrex as prescribed. Triager spoke with Eda at [facility] pharmacy who [facility] Message left for pharmacist documentation improvement specialist at [facility] to contact patient at phone number on file to transfer prescriptions back to preferred pharmacy. Patient updated and verbalizes understanding. Patient denies any new or worsening symptoms of which a provider is not aware:Yes. [facility]03-22-2025 Miscellaneous Notes* Telephone Encounter - Sreekanth Spears RN - 05/23/2024 3:28 PM EDT Patient calling with request for refill of immitrex. Patient states her medicines were transferred to [facility] and she has a migraine and needs immitrex as prescribed. Triager spoke with Eda at [facility] pharmacy who [facility] Message left for pharmacist documentation improvement specialist at [facility] to contact patient at phone number on file to transfer prescriptions back to preferred pharmacy. Patient updated and verbalizes understanding. Patient denies any new or worsening symptoms of which a provider is not aware:Yes. documented in this encounterMansfield Hospital03-17-2025 Telephone encounter Note * Telephone Encounter - Ca Valenzuela RN - 05/18/2024 3:29 PM EDT Dyana with [facility] calls to request refills for patient. Notified Dyana that patient needs to call to request refills as they are not listed as preferred pharmacy with verbalized understanding. Ca Valenzuela RN [facility]03-17-2025 Miscellaneous Notes* Telephone Encounter - Ca Valenzuela RN - 05/18/2024 3:29 PM EDT Dyana with [facility] calls to request refills for patient. Notified Dyana that patient needs to call to request refills as they are not listed as preferred pharmacy with verbalized understanding. Ca Valenzuela RN documented in this encounterMansfield Hospital03-11-2025 Telephone encounter Note * Telephone Encounter - Jamarcus Barboza RN - 05/12/2024 2:38 PM EDT Pt phoned to report she just got [facility]. Reports they cancelled her insurance. Reports the nurse in Dr. Palacio's office needs to call [facility] at [phone] and let them know she does have history of CHF, in order to get her insurance back. This nurse phoned the number patient gave and spoke to a personal financial representative. Informed personal financial representative patient does have hx of CHF. [facility] patient's insurance was terminated on 05-01-24 so this information is no longer needed. Advised personal financial representative patient just spoke to someone at [facility] who told her if doctors office calls to verify patient has CHF, they would reinstate patient's insurance. Washing Machine Assembler took the information. Notified patient information was given to [facility]. [facility]03-11-2025 Miscellaneous Notes* Telephone Encounter - Jamarcus Barboza RN - 05/12/2024 2:38 PM EDT Pt phoned to report she just got off the phone with [facility]. Reports they cancelled her insurance. Reports the nurse in Dr. Palacio's office needs to call [facility] at [phone] and let them know she does have history of CHF, in order to get her insurance back. This nurse phoned the number patient gave and spoke to a personal financial representative. Informed personal financial representative patient does have hx of CHF. [facility] patient's insurance was terminated on 05-01-24 so this information is no longer needed. Advised personal financial representative patient just spoke to someone at [facility] who told her if doctors office calls to verify patient has CHF, they would reinstate patient's insurance. Washing Machine Assembler took the information. Notified patient information was given to [facility]. documented in this encounterMansfield Hospital03-11-2025 Telephone encounter Note * Telephone Encounter - Cesia Steele LPN - 05/12/2024 1:11 PM EDT Called and spoke to patient, patient notified can picking tech letter for handicap placard. Stated does not think the insurance paperwork was dropped off originally and will follow up with insurance. Cesia SteeleRADHA May 12, 2024 1:12 PM [facility]03-11-2025 Miscellaneous Notes* Telephone Encounter - Cesia Steele LPN - 05/12/2024 1:11 PM EDT Called and spoke to patient, patient notified can picking tech letter for handicap placard. Stated does not think the insurance paperwork was dropped off originally and will follow up with insurance. Cesia IvetteRADHA May 12, 2024 1:12 PM * Telephone Encounter - Cesia Steele LPN - 05/12/2024 9:26 AM EDT Called and spoke to patient, patient to contact insurance for paperwork and will drop off. Faxed order for nebulizer and face sheet to [facility] per patient request Patient will still need a letter for handicap placard and will picking tech when available. Cesia RADHA Steele May 12, 2024 9:27 AM * Telephone Encounter - Velvet Palacio MD - 05/11/2024 4:58 PM EDT Please ask patient to notify her pulmonary doctors about her oxygen, we usually dont deal with it. She has Dr Willams on her team who should be helping her with it. Can someone look into the paper work for the patient.? I dont have it with me. I will send the rx for nebulization Velvet Wan MD * Telephone Encounter - Gustavo Wells RN - 05/11/2024 10:56 AM EDT Pt called in asking about nebulizer, solution, and handicapped placard. I let Pt know there was a message in, but provider had not gotten to it as of yet. Pt was also asking about a paper she had dropped off to first floor PSSs. She states her boyfriend dropped it off at the end of April for theproviders to fill out for her insurance. She states the health care closed her insurance until theyget that form filled out and turned back in. She states it is supposed to go over her disease processes CHF, DM, and kidney disease and they wanted records faxed over. She said she thinks there was afax # on the paper for providers office to fax it back to. I told her I didn't see anything in her c montilla about it. She said she needs it [...] able to get more delivered to her house.I told her I would let provider know and have her get back to Pt. Please call and advise. Pt statesif she does not answer to leave a VM for her. * Telephone Encounter - Ruth Tobar RN - 05/09/2024 10:35 AM EST Patient asking if Dr. Palacio would complete the following: Place order for nebulizer with medication to Son, if agreeable? (I pended what was last orderedyears ago) Requesting order for BP monitor to be sent to Son. Pended. Place handicap placard letter for her. She will come in to pick it up when ready. Please call her when ready for picking tech. Ruth Tobar RN documented in this encounterMansfield Hospital03-11-2025 Telephone encounter Note * Telephone Encounter - Cesia Steele LPN - 05/12/2024 9:26 AM EDT Called and spoke to patient, patient to contact insurance for paperwork and will drop off. Faxed order for nebulizer and face sheet to [facility] per patient request Patient will still need a letter for handicap placard and will picking tech when available. Cesia Steele LPN May 12, 2024 9:27 AM [facility]03-10-2025 Telephone encounter Note* Telephone Encounter - Velvet Palacio MD - 05/11/2024 4:58 PM EDT Please ask patient to notify her pulmonary doctors about her oxygen, we usually dont deal with it. She has Dr Willams on her team who should be helping her with it. Can someone look into the paper work for the patient.? I dont have it with me. I will send the rx for nebulization Regards, Velvet Palacio MD [facility]03-10-2025 Telephone encounter Note* Telephone Encounter - Gustavo Wells RN - 05/11/2024 10:56 AM EDT Pt called in asking about nebulizer, solution, and handicapped placard. I let Pt know there was a message in, but provider had not gotten to it as of yet. Pt was also asking about a paper she had dropped off to first floor PSSs. She states her boyfriend dropped it off at the end of April for theproviders to fill out for her insurance. She states the health care closed her insurance until theyget that form filled out and turned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 Orthopaedics Orthopaedics [address] [facility] [address] Dept: [phone] Dept February 10, 2024 CHIEF COMPLAINT: Established [...] trigger finger Informed Consent Consent Obtained: Verbal Auberry Protocol A moment to CARE was completed. [...] anxiety) Sebas Molina MD documented in this encounterMans[facility] Hospital12-[facility]-2024 Telephone encounter Note * Telephone Encounter [...] Montez LPN February 04, 2024 9:26 AM [facility]12-03-2024 Miscellaneous Notes* Telephone Encounter - Kayla [...] 04, 2024 9:26 AM documented in this encounterMans[facility] Hospital12-02-2024 Telephone encounter Note * Telephone Encounter - Cesia Steele LPN - 02/03/2024 3:48 PM EST Patient [email or web address] message requesting the following refill Refill(s) Requested: [...] medication was ordered Propranolol Intolerance fatigue,sleepy (home) [phone] (cell) Last Office Visit Date: 12/11/2023 Last Distance Health Visit: Visit date not found Future Appointment: 03/12/2024 The patients preferred pharmacy has been captured for this encounter? yes Request is for script(s) to be escript to pharmacy. Cesia Steele LPN [facility]12-02-2024 Miscellaneous Notes* Telephone Encounter - Cesia Steele LPN - 02/03/2024 3:48 PM EST Patient AsicAheadt message requesting the following refill Refill(s) Requested: [...] medication was ordered Propranolol Intolerance fatigue,sleepy (home) [phone] (cell) Last Office Visit Date: 12/11/2023 Last Distance Health Visit: Visit date not found Future Appointment: 03/12/2024 The patients preferred pharmacy has been captured for this encounter? yes Request is for script(s) to be escript to pharmacy. Cesia Steele LPN documented in this encounterMans[facility] Hospital11-18-2024 Telephone encounter Note * Telephone Encounter - Shelby Woods MA - 01/20/2024 12:52 PM EST Attempted to contact patient. {Phone number no longer in service. [email or web address] Message sent. Per patient message, [facility] is back long and it' is going to be awhile so please send my refillfor this medication to [facility] please Medication updated and pharmacy confirmed. Shelby Woods MA [facility]11-18-2024 Miscellaneous Notes* Telephone Encounter - Shelby Woods MA - 01/20/2024 12:52 PM EST Attempted to contact patient. {Phone number no longer in service. [email or web address] Message sent. Per patient message, [facility] is [...] 17, 2024 8:33 AM documented in this encounterMansfield Hospital11-15-2024 Telephone encounter Note * Telephone Encounter - Dali Rice APRN.CNP - 01/17/2024 3:02 PM EST She mentioned srx for the pharmacy. What pharmacy does she need? Thank you Dali Rice APRN.CNP [facility]11-15-2024 Telephone encounter Note* Telephone Encounter - [...] Pruitt LPN January 17, 2024 8:34 AM [facility]11-15-2024 Miscellaneous Notes* Telephone Encounter - Lilliana [...] 17, 2024 8:34 AM documented in this encounterMansfield Hospital11-15-2024 Telephone encounter Note * Telephone Encounter [...] Pruitt LPN January 17, 2024 8:33 AM [facility]11-15-2024 Telephone encounter Note* Telephone Encounter - [...] Pruitt LPN January 17, 2024 8:33 AM [facility]11-15-2024 Miscellaneous Notes* Telephone Encounter - Lilliana [...] 17, 2024 8:33 AM documented in this encounterMansfield Hospital11-14-2024 Telephone encounter Note * Telephone Encounter [...] No 8. Does this procedure require a local hazmat driver? Yes If yes, has patient been notified that a local hazmat driver is needed and must be present at check in? yes 9. Were the pre-procedure instructions explained and provided to the patient? Yes 10. Do you have a pacemaker? No 11. Do you have an internal stimulator of any kind? No If yes, please bring the remote with you to your procedure visit. Merrick Lange [facility]11-14-2024 Miscellaneous Notes* Telephone Encounter - Merrick [...] No 8. Does this procedure require a local hazmat driver? Yes If yes, has patient been notified that a local hazmat driver is needed and must be present at check in? yes 9. Were the pre-procedure instructions explained and provided to the patient? Yes 10. Do you have a pacemaker? No 11. Do you have an internal stimulator of any kind? No If yes, please bring the remote with you to your procedure visit. Merrick Lange documented in this encounterMansfield Hospital11-14-2024 History of Present illness Narrative* Nuris Barba APRN.CNP - 01/16/2024 3:00 PM EST [facility] Today's Date: 01/16/2024 Name: Leyda Lopez [...] NSAIDS: None Muscle Relaxants: Zanaflex (Tizanidine), Topicals: Nmlw-Slk-Ckjundl (OTC) Other Prescription or OTC Pain Medications: Tylenol (Acetaminophen) Opioids: None Compliance: PDMP website checked and validated on 01/16/2024 by Nuris Barba APRN.BULK PLANT AGENT All prescriptions have been APPROPRIATELY filled. No [...] performed for further evaluation as clinically warranted. Coil Builder: ABBY Transcribe Date/Time: Oct 26 2023 9:20A Dictated [...] guidance BILATERAL SIDES at T6-7 and T7-8 Television Inspector Needed: Medial Branch Blocks - YES Anticoagulant - Hold Needed: N/A (Not currently on Anticoagulants) Anticoagulant - Currently Taking: None Allergies (relevant): None Scheduling - Mobility (Can Patient independently transfer on/off an OR or Procedure table?): YES (May schedule at any location) Scheduling - Additional Info: None Studies: None Functional Congregational: NONE Referrals: No additional considerations at present [...] decision making from today's date. Nuris Barba APRN.BULK PLANT AGENT [facility] * Anne Marie Torres MA [...] The patient is nervous/anxious. documented in this encounterMansfield Hospital11-14-2024 NoteHNO ID: [id number] Author: NURIS BARBA APRN.CNP Service: ? Author Type: Nurse Practitioner Type: Progress Notes Filed: 01/16/2024 16:46 Note Text: [facility] Today's Date: 01/16/2024 Name: Leyda Lopez [...] NSAIDS: None Muscle Relaxants: Zanaflex (Tizanidine), Topicals: Yzmp-Fkj-Dredzbm (OTC) Other Prescription or OTC Pain Medications: Tylenol (Acetaminophen) Opioids: None Compliance: PDMP website checked and validated on 01/16/2024 by Nuris Barba APRN.BULK PLANT AGENT All prescriptions have been APPROPRIATELY filled. No [...] Diagnostic Studies: Relevant I (more content not included)...[facility]11-14-2024 NoteHNO ID: [id number] Author: ANNE MARIE TORRES MA Service: ? Author Type: Books Binder Type: Progress Notes Filed: 01/16/2024 16:46 Note [...] Negative for suicidal ideas. The patient is nervous/anxious.[facility]11-13-2024 Telephone encounter Note* Telephone Encounter - Kayla [...] Montez LPN January 15, 2024 12:05 PM [facility]11-13-2024 Miscellaneous Notes* Telephone Encounter - Kayla Montez [...] 15, 2024 12:05 PM documented in this encounterMansfield Hospital11-01-2024 Telephone encounter Note * Telephone Encounter - Gustavo Wells RN - 01/03/2024 3:03 PM EDT Pt called and is notified of providers message and instructions. Pt voices understanding. Gustavo Wells RN [facility]11-01-2024 Miscellaneous Notes* Telephone Encounter - Gustavo [...] next week. Thank you Dali Rice APRN.CNP * Telephone Encounter - Kellen Alexandra LPN - 01/03/2024 1:10 PM EDT Patient returned call and went over results, notes from Dali Rice VINYL DIPPER. Patient said she has been outof her potassium rx completed it from when she was in the hospital last time. Patient asking for another rx to be sent to [facility] pharmacy please. * Telephone Encounter - Cesia [...] you Dali Rice APRN.CNP documented in this encounterMansfield Hospital11-01-2024 Telephone encounter Note * Telephone Encounter - Michelle Beckham MA - 01/03/2024 2:32 PM EDT Left message for return call. [facility]11-01-2024 Telephone encounter Note* Telephone Encounter - Dali Rice APRN.CNP - 01/03/2024 1:38 PM EDT Potassium supplement reordered as previously taking. Recheck level next week. Thank you Dali Rice APRN.CNP [facility]11-01-2024 Telephone encounter Note* Telephone Encounter - Kellen Alexandra LPN - 01/03/2024 1:12 PM EDT Patient returned call and went over notes below from Dali Rice VINYL DIPPER with understanding. Patient said she has appt scheduled for Saturday to see PCP. [facility]11-01-2024 Miscellaneous Notes* Telephone Encounter - Kellen Alexandra LPN - 01/03/2024 1:12 PM EDT Patient returned call and went over notes below from Dali Rice VINYL DIPPER with understanding. Patient said she has appt scheduled for Saturday to see PCP. * Telephone Encounter - Michelle Beckham MA - 01/03/2024 12:35 PM EDT Left message for return call. * Telephone Encounter - Dali Rice APRN.CNP - 01/03/2024 11:08 AM EDT She needs seen for any refill for this or breathing concerns. Thank you Dali Rice APRN.CNP * Telephone Encounter - Lilliana Pruitt LPN [...] 03, 2024 9:46 AM documented in this encounterMansfield Hospital11-01-2024 Telephone encounter Note * Telephone Encounter - Kellen Alexandra LPN - 01/03/2024 1:10 PM EDT Patient returned call and went over results, notes from Dali Rice VINYL DIPPER. Patient said she has been outof her potassium rx completed it from when she was in the hospital last time. Patient asking for another rx to be sent to [facility] pharmacy please. [facility]11-01-2024 Telephone encounter Note* Telephone Encounter - Michelle Beckham MA - 01/03/2024 12:35 PM EDT Left message for return call. [facility]11-01-2024 Telephone encounter Note* Telephone Encounter - Dali Rice APRN.CNP - 01/03/2024 11:08 AM EDT She needs seen for any refill for this or breathing concerns. Thank you Dali Rice APRN.CNP [facility]11-01-2024 Telephone encounter Note* Telephone Encounter - [...] Pruitt LPN January 03, 2024 9:46 AM [facility]10-31-2024 Telephone encounter Note* Telephone Encounter - Cesia Steele LPN - 01/02/2024 1:16 PM EDT Called and left message for patient to call office back. Cesia Steele LPN January 02, 2024 1:16 PM [facility]10-31-2024 Telephone encounter Note* Telephone Encounter - Dali Rice APRN.CNP - 01/02/2024 12:27 PM EDT Potassium level is low. Has she been taking her prescribed potassium supplement? This was prescribed by other provider. Please verify how much she is taking and who is prescribing it. Thank you Dali Rice APRN.MARIETTA [facility]10-29-2024 Telephone encounter Note* Telephone Encounter - Gustavo Wells RN - 12/31/2023 8:09 AM EDT Pt called and is notified of providers results and instructions. Pt voices understanding. Pt scheduled with Dr Palacio 01/06/24. Gustavo Wells RN T [facility]10-29-2024 Miscellaneous Notes* Telephone Encounter - Gustavo Wells RN - 12/31/2023 8:09 AM EDT Pt called and is notified of providers results and instructions. Pt voices understanding. Pt scheduled with Dr Palacio 01/06/24. Gustavo Wells RN * Telephone Encounter - Velvet Palacio [...] come back for provider to [facility]. Let Pt know her sodium was high and asked if she was eating things high in sodium and she said she was eating a lot of cereal and toast. Pts K+ was 3.3, and she states she used to be on a potassium pill. Pt was asking if provider would re-order potassium pill, Pt uses [facility] in [place]. Please call and advise Pt. BUN 7 [...] CM 53 Low CM documented in this encounterMansfield Hospital10-28-2024 Telephone encounter Note * Telephone Encounter - Velvet Palacio MD - 12/30/2023 6:17 PM EDT Ordered lyrica, Would like her to follow up with me regarding the low potassium this week or next Regards, Velvet Palacio MD [facility]10-25-2024 Telephone encounter Note* Telephone Encounter - Gustavo Wells RN - 12/27/2023 2:45 PM EDT Pt called in and was asking for lab results. BUN and creat have improved. Pt was asking if providerwould increase her Lyrica, she states she was waiting on these labs to come back for provider to [facility]. Let Pt know her sodium was high and asked if she was eating things high in sodium and she said she was eating a lot of cereal and toast. Pts K+ was 3.3, and she states she used to be on a potassium pill. Pt was asking if provider would re-order potassium pill, Pt uses [facility] in [place]. Please call and advise Pt. BUN 7 [...] CM 58 Low CM 53 Low CM [facility]10-22-2024 Telephone encounter Note* Telephone Encounter - [...] Valenzuela RN December 24, 2023 3:46 PM [facility]10-22-2024 Miscellaneous Notes* Telephone Encounter - Ca [...] 24, 2023 3:46 PM documented in this encounterMansfield Hospital10-10-2024 Telephone encounter Note * Telephone Encounter - Gustavo Wells RN - 12/12/2023 1:25 PM EDT Pt called and is notified of providers results and instructions. Pt voices understanding. Gustavo Wells RN [facility]10-10-2024 Miscellaneous Notes* Telephone Encounter - Gustavo [...] you Dali Rice APRN.MARIETTA documented in this encounterMansfield Hospital10-10-2024 Telephone encounter Note * Telephone Encounter - Dali Rice APRN.CNP - 12/12/2023 12:40 PM EDT I wanted her to do the prednisone before any increase and yes she is fine to take this. Continue lasix for now and follow previous instructions. Will revaluate this when kidney function rechecked in 2 weeks. Thank you Dali Rice APRN.BULK PLANT AGENT [facility]10-10-2024 Telephone encounter Note* Telephone Encounter - Mari Martinez APRN.MARIETTA - 12/12/2023 11:23 AM EDT Noted. Mari Mueller APRN.BULK PLANT AGENT [facility]10-10-2024 Miscellaneous Notes* Telephone Encounter - Mari Martinez APRN.CNP - 12/12/2023 11:23 AM EDT Noted. Mari Mueller APRN.BULK PLANT AGENT * Telephone Encounter - Raine Judd RN - 12/12/2023 11:11 AM EDT Spoke with patient, relayed message below, states she has spoken with PCP office this morning regarding labs. Also states she is not ready to proceed with Reclast at this time, patient has no questions for provider regarding Reclast at this time. Agrees to reach out to office at [phone] or thru MyChart when she is more [...] please provideher with information to schedule at [place], she is due now. Please advise her to stay well hydratedthe day of the infusion. She should have labs done to check a calcium level 2 weeks after the reclast. If she is agreeable to starting reclast, please route the message back to me so that I can place the order. Thanks, Mari Martinez APRN.MARIETTA documented in this encounterMansfield Hospital10-10-2024 Telephone encounter Note * Telephone Encounter [...] Agrees to reach out to office at [phone] or thru MyChart when she is more clear in her head and has delt with other things going on Raine Judd RN [facility]10-10-2024 Telephone encounter Note* Telephone Encounter - [...] please provideher with information to schedule at [place], she is due now. Please advise her to stay well hydratedthe day of the infusion. She should have labs done to check a calcium level 2 weeks after the reclast. If she is agreeable to starting reclast, please route the message back to me so that I can place the order. Thanks, Mari Martinez APRN.BULK PLANT AGENT [facility]10-10-2024 Telephone encounter Note* Telephone Encounter - [...] Please call and advise. Gustavo Wells RN [facility]10-10-2024 Telephone encounter Note* Telephone Encounter - Dali Rice APRN.MARIETTA - 12/12/2023 7:16 AM EDT Kidney function decreased. Do not take any meloxicam, ibuprofen, advil, aleve, naproxen, or any other anti-inflammatory. Can take tylenol. Also increase water to stay hydrated and recheck in 2 weeks. Thank you Dali Rice APRN.MARIETTA [facility]10-09-2024 NoteHNO ID: [id number] Author: DALI RICE APRN.MARIETTA Service: ? Author [...] for this NSTEMI (non-ST elevated myocardial infarction) ([facility]) Seeing Dr. Hutton Other and unspecified hyperlipidemia Panic disorder without agoraphobia 03/22/2005 PMR (polymyalgia rheumatica) ([facility]) RA (rheumatoid arthritis) ([facility]) Unspecified essential hypertension 03/22/2005 PAST SURGICAL HISTORY [...] Puffs as instructed. nitroglycerin (more content not included)...[facility]10-09-2024 History of Present illness Narrative* Dali Rice APRN.BULK PLANT AGENT - 12/11/2023 2:06 PM EDT CC: Patient [...] pain chronic-Seeing Dr. Blankenship Bipolar affective disorder ([facility]) Chronic right shoulder pain Seeing Dr. Molina Closed dislocation of tarsometatarsal (joint) 01/18/2011 COPD (chronic obstructive pulmonary disease) ([facility]) Depressive disorder, not elsewhere classified 03/22/2005 Disorder of bone and cartilage, unspecified 02/09/2008 Distal radius fracture 01/05/2011 Dysuria Fibromyalgia GERD (gastroesophageal reflux disease) IBS (irritable bowel syndrome) Mitral regurgitation Severe Neck pain chronic-takes vicodin for this NSTEMI (non-ST elevated myocardial infarction) [facility] [facility]) Seeing Dr. Hutton Other and unspecified hyperlipidemia Panic disorder without agoraphobia 03/22/2005 PMR (polymyalgia rheumatica) ([facility]) RA (rheumatoid arthritis) ([facility]) Unspecified essential hypertension 03/22/2005 PAST SURGICAL HISTORY [...] COPD Mother Breast Cancer Mother Heart Father [place] COPD Father other (Pulmonary fibrosis) Father Social [...] plan. Dali Rice APRN.CNP documented in this encounterM[facility]09-16-[facility]24 Telephone encounter Note * Telephone Encounter - Dali Rice APRN.CNP - 11/18/2023 7:20 AM EDT Noted. Will await appointment or patient's return call Dali Rice APRN.CNP [facility]09-16-[facility]24 Miscellaneous Notes* Telephone Encounter - Dali Rice [...] the trazadone and the zanaflex. In review [facility]office [facility]. She also was asking about a new blood pressure machine. She will get this at her 11/25/23 appt with VINYL DIPPER. documented in this encounterMansfield Hospital09-14-2024 Telephone encounter Note * Telephone Encounter - Craa Palomo LPN - 11/16/2023 11:12 AM EDT Pt calling regarding medicines. She [facility] and they report [facility]. She is specifically asking about the trazadone and the zanaflex. In review theoffice did not [facility]. She also was asking about a new blood pressure machine. She will get this at her 11/25/23 appt with VINYL DIPPER. [facility]09-10-[facility] History of Present illness Narrative* Mari Martinez APRN.BULK PLANT AGENT - 11/12/2023 1:00 PM EDT Chief complaint: [...] OP. -she denies use of antiseizure medications, residential steroids, or hormone replacement therapy -she denies [...] Dr. Blankenship No date: Bipolar affective disorder ([facility]) No date: Chronic right shoulder pain Comment: Seeing Dr. Molina 01/18/2011: Closed dislocation of tarsometatarsal (joint) No date: COPD (chronic obstructive pulmonary disease) ([facility]) 03/22/2005: Depressive disorder, not elsewhere classified 02/09/2008: Disorder of bone and cartilage, unspecified 01/05/2011: Distal radius fracture No date: Dysuria No date: Fibromyalgia No date: GERD (gastroesophageal reflux disease) No date: IBS (irritable bowel syndrome) No date: Mitral regurgitation Comment: Severe No date: Neck pain Comment: chronic-takes vicodin for this No date: NSTEMI (non-ST elevated myocardial infarction) ([facility]) Comment: Seeing Dr. Hutton No date: Other and unspecified hyperlipidemia 03/22/2005: Panic disorder without agoraphobia No date: PMR (polymyalgia rheumatica) ([facility]) No date: RA (rheumatoid arthritis) ([facility]) 03/22/2005: Unspecified essential hypertension PAST SURGICAL HISTORY [...] COPD Mother Breast Cancer Mother Heart Father [place] COPD Father other (Pulmonary fibrosis) Father ALLERGIES [...] Intolerance fatigue,sleepy SOCIAL HISTORY: She lives in [place]. with 1 daughter. Caffeine: 2-3, 16 ounce bottles of pop per day- decreased intake advised Alcohol: none Smoking: former smoker, quit 15 years ago Exercise: no routine exercise INTERVAL HISTORY She is here for follow up. She is accompanied by her . I recommended treatment with reclast, but she never scheduled. She reports a couple falls since the [facility]. No fractures since the [facility]. No invasive dental work in the [...] . Mari Martinez APRN.MARIETTA documented in this encounterMansfield Hospital09-10-2024 NoteHNO ID: [id number] Author: MARI MARTINEZ APRN.CNP Service: ? Author [...] OP. -she denies use of antiseizure medications, terminal computer operator steroids, or hormone replacement therapy -she denies [...] Dr. Blankenship No date: Bipolar affective disorder ([facility]) No date: Chronic right shoulder pain Comment: Seeing Dr. Molina 01/18/2011: Closed dislocation of tarsometatarsal (joint) No date: COPD (chronic obstructive pulmonary disease) ([facility]) 03/22/2005: Depressive disorder, not elsewhere classified 02/09/2008: Disorder of bone and cartilage, unspecified 01/05/2011: Distal radius fracture No date: Dysuria No date: Fibromyalgia No date: GERD (gastroesophageal reflux disease) No date: IBS (irritable bowel syndrome) No date: Mitral regurgitation Comment: Severe No date: Neck pain Comment: chronic-takes vicodin for this No date: NSTEMI (non-ST elevated myocardial infarction) ([facility]) Comment: Seeing Dr. Hutton No date: Other and unspecified hyperlipidemia 03/22/2005: Panic disorder without agoraphobia No date: PMR (polymyalgia rheumatica) ([facility]) No date: RA (rheumatoid arthritis) ([facility]) 03/22/2005: Unspecified essential hypertension PAST SURGICAL HISTORY [...] COPD Mother Breast Cancer Mother Heart Father [place] COPD Father other (Pulmonary fibrosis) Father ALLERGIES [...] Intolerance fatigue,sleepy SOCIAL HISTORY: She lives in [place]. with 1 daughter. Caffeine: 2-3, 16 ounce bottles of pop per day- decreased intake advised Alcohol: none Smoking: former smoker, quit 15 years ago Exercise: no routine exercise INTERVAL HISTORY She is here for follow up. She is accompanied by her . I recommended treatment with reclast, but she never scheduled. She reports a couple falls since the [facility]. No fractures since the [facility]. No invasive dental work in the [...] Sores in your mout (more content not included)...[facility] 11-12-2023 Instructions* Patient Instructions* Mari Martinez APRN.CNP - 11/12/2023 12:59 PM EDT Please schedule 6 month follow up with Dr. Obrien or Dr. Mittal to establish care documented in this encounterMansfield Hospital09-10-2024 Telephone encounter Note * Telephone Encounter [...] Webb MA November 12, 2023 9:53 AM [facility]09-10-[facility] Miscellaneous Notes* Telephone Encounter - Janes [...] 12, 2023 9:53 AM documented in this encounterMansfield Hospital09-04-2024 NoteHNO ID: [id number] Author: DALI RICE APRN.BULK PLANT AGENT Service: ? Author Type: Nurse Practitioner Type: [...] No date: COPD (chronic obstructive pulmonary disease) ([facility]) 03/22/2005: Depressive disorder, not elsewhere classified 02/09/2008: Disorder of bone and cartilage, unspecified 01/05/2011: Distal radius fracture No date: Dysuria No date: Fibromyalgia No date: GERD (gastroesophageal reflux disease) No date: IBS (irritable bowel syndrome) No date: Mitral regurgitation Comment: Severe No date: Neck pain Comment: chronic-takes vicodin for this No date: NSTEMI (non-ST elevated myocardial infarction) ([facility]) Comment: Seeing Dr. Hutton No date: Other and unspecified hyperlipidemia 03/22/2005: Panic disorder without agoraphobia No date: PMR (polymyalgia rheumatica) ([facility]) No date: RA (rheumatoid arthritis) ([facility]) 03/22/2005: Unspecified essential hypertension PAST SURGICAL HISTORY [...] 250-50 mcg/dose inhaler Inha (more content not included)...[facility]09-04-2024 History of Present illness Narrative* Dali Rice APRN.BULK PLANT AGENT - 11/06/2023 2:23 PM EDT CC: Patient [...] Dr. Blankenship No date: Bipolar affective disorder ([facility]) No date: Chronic right shoulder pain Comment: Seeing Dr. Molina 01/18/2011: Closed dislocation of tarsometatarsal (joint) No date: COPD (chronic obstructive pulmonary disease) ([facility]) 03/22/2005: Depressive disorder, not elsewhere classified 02/09/2008: Disorder of bone and cartilage, unspecified 01/05/2011: Distal radius fracture No date: Dysuria No date: Fibromyalgia No date: GERD (gastroesophageal reflux disease) No date: IBS (irritable bowel syndrome) No date: Mitral regurgitation Comment: Severe No date: Neck pain Comment: chronic-takes vicodin for this No date: NSTEMI (non-ST elevated myocardial infarction) ([facility]) Comment: Seeing Dr. Hutton No date: Other and unspecified hyperlipidemia 03/22/2005: Panic disorder without agoraphobia No date: PMR (polymyalgia rheumatica) ([facility]) No date: RA (rheumatoid arthritis) ([facility]) 03/22/2005: Unspecified essential hypertension PAST SURGICAL HISTORY [...] COPD Mother Breast Cancer Mother Heart Father [place] COPD Father other (Pulmonary fibrosis) Father Social [...] Colorectal Cancer Screening due on 01/08/2022 Covid-19 Vaccine(2022- season) Never done Influenza Vaccine(1) due on [...] Patient agreeable to treatment plan. Dali Rice APRN.BULK PLANT AGENT documented in this encounterMansfield Hospital08-28-2024 Telephone encounter Note * Telephone Encounter - Homa Martinez RN - 10/30/2023 12:02 PM EDT Patient calling and asking if this been done as soon as possible. Patient asking about lasix prescription and increase in Lyrica. Please review and advise, Homa Martinez RN [facility]08-28-2024 Miscellaneous Notes* Telephone Encounter - Homa [...] 29, 2023 1:47 PM documented in this encounterMansfield Hospital08-27-2024 Telephone encounter Note * Telephone Encounter [...] Alexandra LPN October 29, 2023 1:47 PM [facility]08-27-2024 Telephone encounter Note* Telephone Encounter - [...] Webb MA October 29, 2023 8:48 AM [facility]08-27-[facility] Miscellaneous Notes* Telephone Encounter - Janes [...] 29, 2023 8:48 AM documented in this encounterMansfield Hospital08-26-2024 Telephone encounter Note * Telephone Encounter - Michelle Beckham MA - 10/28/2023 3:56 PM EDT Patient notified. [facility]08[facility] Miscellaneous Notes* Telephone Encounter - Michelle [...] knots, her anxiety is worse. Patient [facility]. Please advise documented in this encounterMansfield Hospital08-26-2024 Telephone encounter Note * Telephone Encounter - Michelle Beckham MA - 10/28/2023 3:55 PM EDT Patient notified, seeing rheumatology tomorrow. [facility]08-26-[facility] Miscellaneous Notes* Telephone Encounter - Michelle [...] advise. Scot Wang LPN documented in this encounterMansfield Hospital08-26-2024 Telephone encounter Note * Telephone Encounter - Dali Rice APRN.CNP - 10/28/2023 3:50 PM EDT Increased dose of buspar sent. See other TE as well. Thank you Dali Rice APRN.CNP [facility]08-26-2024 Telephone encounter Note* Telephone Encounter - [...] to ER. Thank you Dali Rice APRN.CNP [facility]08-26-2024 Telephone encounter Note* Telephone Encounter - [...] Gini Rice for her pharmacy. Please advise [facility] Telephone encounter Note* Telephone Encounter - [...] Please review and advise, Homa Martinez RN [facility]08-24-2024 Telephone encounter Note* Telephone Encounter - Scot Wang LPN - 10/26/2023 9:44 AM EDT Pt calling for results of xray's completed on 10/22/23. Please advise. Scot Wang LPN [facility]08-21-2024 Telephone encounter Note* Telephone Encounter - Ca Valenzuela RN - 10/23/2023 2:52 PM EDT Barby with [facility] calls to request prescription refills. Noted [facility] is preferred pharmacy. Notified Barby patient would need to authorize requests and prescriptions had recently [facility]. Will wait to hear from patient if has needs. Ca Valenzuela RN [facility]08-21-2024 Miscellaneous Notes* Telephone Encounter - Ca Valenzuela RN - 10/23/2023 2:52 PM EDT Barby with [facility] calls to request prescription refills. Noted [facility] is preferred pharmacy. Notified Barby patient would need to authorize requests and prescriptions had recently [facility]. Will wait to hear from patient if has needs. Ca Valenzuela RN documented in this encounterMansfield Hospital08-20-2024 History of Present illness Narrative* Carrie [...] PATIENT PRESENTS WITH AN IMPLANTABLE OR ATTACHED LAND LEVELER: No RADIOLOGY DEPARTMENT: General X-ray: Exam(s) Completed: Spine X-Ray(s): Thoracic PERIPHERAL IV DATA: Not applicable SIGNED BY: RT Sravani(Velia) October 22, 2023 1:11 PM documented in this encounterMansfield Hospital08-20-2024 NoteHNO ID: [id number] Author: AREVALO, CARRIE, RT(R) Service: Radiology Author Type: Technologist Type: [...] PATIENT PRESENTS WITH AN IMPLANTABLE OR ATTACHED LAND LEVELER: No RADIOLOGY DEPARTMENT: General X-ray: Exam(s) Completed: Spine X-Ray(s): Thoracic PERIPHERAL IV DATA: Not applicable SIGNED BY: RT Sravani(R) October 22, 2023 1:11 [facility]08-20-2024 Instructions* Patient Instructions* Ines Lopez PA-C - 10/22/2023 12:52 PM EDT Slowly taper (stop) the amitriptyline. Take 1/2 tab (50 mg once daily) at bedtime x 2 weeks Then take 1/4 tabs (25 mg once daily) at bedtime x 2 weeks, then stop. Can start trazodone in 2 weeks when taking 25 mg once daily. documented in this encounterMansfield Hospital08-20-2024 History of Present illness Narrative* Ines [...] Dr. Blankenship No date: Bipolar affective disorder ([facility]) No date: Chronic right shoulder pain Comment: Seeing Dr. Molina 01/18/2011: Closed dislocation of tarsometatarsal (joint) No date: COPD (chronic obstructive pulmonary disease) ([facility]) 03/22/2005: Depressive disorder, not elsewhere classified 02/09/2008: Disorder of bone and cartilage, unspecified 01/05/2011: Distal radius fracture No date: Dysuria No date: Fibromyalgia No date: GERD (gastroesophageal reflux disease) No date: IBS (irritable bowel syndrome) No date: Mitral regurgitation Comment: Severe No date: Neck pain Comment: chronic-takes vicodin for this No date: NSTEMI (non-ST elevated myocardial infarction) ([facility]) Comment: Seeing Dr. Hutton No date: Other and unspecified hyperlipidemia 03/22/2005: Panic disorder without agoraphobia No date: PMR (polymyalgia rheumatica) ([facility]) No date: RA (rheumatoid arthritis) ([facility]) 03/22/2005: Unspecified essential hypertension ALLERGIES Amlodipine, Ativan [...] sooner. Ines Lopez PA-C documented in this encounterMansfield Hospital08-20-2024 NoteHNO ID: [id number] Author: INES LOPEZ PA-C Service: ? Author Type: Physician Electrician Office Type: Progress Notes Filed: 11/05/2023 10:31 Note [...] Dr. Blankenship No date: Bipolar affective disorder ([facility]) No date: Chronic right shoulder pain Comment: Seeing Dr. Molina 01/18/2011: Closed dislocation of tarsometatarsal (joint) No date: COPD (chronic obstructive pulmonary disease) ([facility]) 03/22/2005: Depressive disorder, not elsewhere classified 02/09/2008: Disorder of bone and cartilage, unspecified 01/05/2011: Distal radius fracture No date: Dysuria No date: Fibromyalgia No date: GERD (gastroesophageal reflux disease) No date: IBS (irritable bowel syndrome) No date: Mitral regurgitation Comment: Severe No date: Neck pain Comment: chronic-takes vicodin for this No date: NSTEMI (non-ST elevated myocardial infarction) ([facility]) Comment: Seeing Dr. Hutton No date: Other and unspecified hyperlipidemia 03/22/2005: Panic disorder without agoraphobia No date: PMR (polymyalgia rheumatica) ([facility]) No date: RA (rheumatoid arthritis) ([facility]) 03/22/2005: Unspecified essential hypertension ALLERGIES Amlodipine, Ativan [...] visit. SOCIAL HISTORY Socia (more content not included)...[facility]08-20-2024 Telephone encounter Note* Telephone Encounter - Raheel, Donna M, MA - 10/22/2023 12:11 PM EDT Patient called in and cancelled surgery. She is not rescheduling at this time. Case message sent and post op appointments have been cancelled. [facility]08-20-[facility] Miscellaneous Notes* Telephone Encounter - Donna Pickering MA - 10/22/2023 12:11 PM EDT Patient called in and cancelled surgery. She is not rescheduling at this time. Case message sent and post op appointments have been cancelled. documented in this encounterMansfield Hospital08-19-2024 Telephone encounter Note * Telephone Encounter - Ca Valenzuela RN - 10/21/2023 4:44 PM EDT Patient returns call. Wants to discuss medication renewals. Sumatriptan, Imodium, and Hydroxyzine. Scheduled OV per previous Refill request. Scheduled 40 min OV. Ca Valenzuela RN [facility]08-19-2024 Miscellaneous Notes* Telephone Encounter - Ca [...] medication was ordered Propranolol Intolerance fatigue,sleepy (home) [phone] (cell) Last Office Visit Date: 06/10/2023 Last [facility] Visit: Visit date not found Future Appointment: 12/11/2023 The patients preferred pharmacy has been captured for this encounter? yes Request is for script(s) to be escript to pharmacy. Cesia Steele LPN documented in this encounterMansfield Hospital08-19-2024 Telephone encounter Note * Telephone Encounter - Cesia Steele LPN - 10/21/2023 1:58 PM EDT Patient [email or web address] message requesting the following refill Refill(s) Requested: [...] medication was ordered Propranolol Intolerance fatigue,sleepy (home) [phone] (cell) Last Office Visit Date: 06/10/2023 Last [facility] Visit: Visit date not found Future Appointment: 12/11/2023 The patients preferred pharmacy has been captured for this encounter? yes Request is for script(s) to be escript to pharmacy. Cesia Steele LPN [facility]08-19-2024 Telephone encounter Note* Telephone Encounter - Dali Rice APRN.CNP - 10/21/2023 12:54 PM EDT This was just filled 2 weeks ago. If she is needing it this often, she needs seen. Dali Rice APRN.CNP [facility]08-19-2024 Miscellaneous Notes* Telephone Encounter - Dali Rice APRN.CNP - 10/21/2023 12:54 PM EDT This was just filled 2 weeks ago. If she is needing it this often, she needs seen. Dali Rice APRN.CNP * Telephone Encounter - Cesia Steele LPN - 10/21/2023 10:39 AM EDT Patient [email or web address] message requesting the following refill Refill(s) Requested: [...] medication was ordered Propranolol Intolerance fatigue,sleepy (home) [phone] (cell) Last Office Visit Date: 06/10/2023 Last [facility] Visit: Visit date not found Future Appointment: 10/18/2023 The patients preferred pharmacy has been captured for this encounter? yes Request is for script(s) to be escript to pharmacy. Cesia Steele LPN documented in this encounterMansfield Hospital08-19-2024 Telephone encounter Note * Telephone Encounter - Cesia Steele LPN - 10/21/2023 10:39 AM EDT Patient [email or web address] message requesting the following refill Refill(s) Requested: [...] medication was ordered Propranolol Intolerance fatigue,sleepy (home) [phone] (cell) Last Office Visit Date: 06/10/2023 Last [facility] Visit: Visit date not found Future Appointment: 10/18/2023 The patients preferred pharmacy has been captured for this encounter? yes Request is for script(s) to be escript to pharmacy. Cesia Steele LPN [facility]-15-[facility] Telephone encounter Note* Telephone Encounter - Nakita Santiago MA - 10/17/2023 4:29 PM EDT Patient returned call. Patient canceled her surgery and will call to reschedule. [facility]-15-[facility] Miscellaneous Notes* Telephone Encounter - Nakita Santiago MA - 10/17/2023 4:29 PM EDT Patient returned call. Patient canceled her surgery and will call to reschedule. * Telephone Encounter - Donna Pickering MA - 10/16/2023 3:48 PM EDT I called and left a detailed message on the patients voicemail that she needs to contact [phone] to get her pre admission testing set up. Advised patient surgery would be cancelled if she did not have pre admission testing completed. Also attempted to reach significant other, Linwood, voicemail was full and I could not [...] Michelle Caban LPN . documented in this encounterMansfield Hospital08-15-2024 Telephone encounter Note * Telephone Encounter [...] Santiago MA October 17, 2023 4:26 PM [facility]08-15-2024 Miscellaneous Notes* Telephone Encounter - Nakita [...] 17, 2023 4:26 PM documented in this encounterMansfield Hospital08-14-2024 Telephone encounter Note * Telephone Encounter - Donna Pickering MA - 10/16/2023 3:48 PM EDT I called and left a detailed message on the patients voicemail that she needs to contact [phone] to get her pre admission testing set up. Advised patient surgery would be cancelled if she did not have pre admission testing completed. Also attempted to reach significant other, Linwood, voicemail was full and I could not leave a message. [facility]24 Telephone encounter Note* Telephone Encounter - Nakita Santiago MA - 10/15/2023 1:53 PM EDT Left message for patient to call office. [facility]08-13-[facility]24 Telephone encounter Note* Telephone Encounter - Nakita Santiago MA - 10/15/2023 1:48 PM EDT Nasrin from [facility] called and states patient was no show for PAT and they have left her 5 messages and has not returned any of their calls. Patient is scheduled for surgery next Sunday 10/22. [facility]08-06-[facility] Telephone encounter Note* Telephone Encounter - Janes Webb MA - 10/08/2023 9:02 AM EDT Mychart sent. [facility]08-06-[facility] Miscellaneous Notes* Telephone Encounter - Janes [...] that there is a current script at [facility] of lisinopril. Prescription Refill Information The patient [...] 07, 2023 1:18 PM documented in this encounterMansfield Hospital08-05-2024 Telephone encounter Note * Telephone Encounter - Lilliana Pruitt LPN - 10/07/2023 4:21 PM EDT Attempted to reach pt by phone without success. Mailbox is full. Lilliana Pruitt LPN [facility]08-05-2024 Telephone encounter Note* Telephone Encounter - Michelle Caban LPN - 10/07/2023 3:52 PM EDT Patient was scheduled for in person [facility] appt at 3:40pm today. Patient did not check in for appt, called patient at 3:51pm to see if they were planning on coming. Left voicemail with appt informationand [facility] phone number. Michelle Caban LPN . [facility]-2024 Telephone encounter Note* Telephone Encounter - [...] Montez LPN October 07, 2023 1:21 PM [facility] Miscellaneous Notes* Telephone Encounter - Kayla [...] 07, 2023 1:21 PM documented in this encounterMansfield Hospital08-05-2024 Telephone encounter Note * Telephone Encounter [...] Montez LPN October 07, 2023 1:20 PM [facility]-2024 Miscellaneous Notes* Telephone Encounter - Kayla [...] 07, 2023 1:20 PM documented in this encounterMansfield Hospital08-05-2024 Telephone encounter Note * Telephone Encounter - Kayla Montez LPN - 10/07/2023 1:09 PM EDT Our records indicate that there is a current script at [facility] of lisinopril. Prescription Refill Information The patient [...] Montez LPN October 07, 2023 1:18 PM [facility]24 NoteHNO ID: [id number] Author: KUSH GUTHRIE APRN.BULK PLANT AGENT Service: ? Author Type: Nurse Practitioner Type: [...] pain chronic-Seeing Dr. Blankenship Bipolar affective disorder ([facility]) Chronic right shoulder pain Seeing Dr. Molina Closed dislocation of tarsometatarsal (joint) 01/18/2011 COPD (chronic obstructive pulmonary disease) ([facility]) Depressive disorder, not elsewhere classified 03/22/2005 Disorder of bone and cartilage, unspecified 02/09/2008 Distal radius fracture 01/05/2011 Dysuria Fibromyalgia GERD (gastroesophageal reflux disease) IBS (irritable bowel syndrome) Mitral regurgitation Severe Neck pain chronic-takes vicodin for this NSTEMI (non-ST elevated myocardial infarction) ([facility]) Seeing Dr. Hutton Other and unspecified hyperlipidemia Panic disorder without agoraphobia 03/22/2005 PMR (polymyalgia rheumatica) ([facility]) RA (rheumatoid arthritis) ([facility]) Unspecified essential hypertension 03/22/2005 PAST SURGICAL HISTORY [...] Vitamin D3, 2,000 unit (more content not included)...[facility]07-26-2024 History of Present illness Narrative* Kush Guthrie APRN.[facility] - 09/27/2023 11:08 AM EDT Images from [...] (joint) 01/18/2011 COPD (chronic obstructive pulmonary disease) ([facility]) Depressive disorder, not elsewhere classified 03/22/2005 Disorder of bone and cartilage, unspecified 02/09/2008 Distal radius fracture 01/05/2011 Dysuria Fibromyalgia GERD (gastroesophageal reflux disease) IBS (irritable bowel syndrome) Mitral regurgitation Severe Neck pain chronic-takes vicodin for this NSTEMI (non-ST elevated myocardial infarction) ([facility]) Seeing Dr. Hutton Other and unspecified hyperlipidemia Panic disorder without agoraphobia 03/22/2005 PMR (polymyalgia rheumatica) ([facility]) RA (rheumatoid arthritis) ([facility]) Unspecified essential hypertension 03/22/2005 PAST SURGICAL HISTORY [...] COPD Mother Breast Cancer Mother Heart Father [place] COPD Father other (Pulmonary fibrosis) Father Social [...] further evaluation care. Will be seen at [facility]. Verbalized understand agreeswith plan of care. Kush Guthrie APRN.[place] documented in this encounterM[facility] Hospital07-[facility]24 Telephone encounter Note * Telephone Encounter - Dali Rice APRN.CNP - 09/25/2023 9:49 AM EDT She is currently requiring 12 a month. She needs seen to see why they are this bad and what other treatment is indicated. Thank you Dali Rice APRN.CNP [facility]07-24-2024 Miscellaneous Notes* Telephone Encounter - Dali Rice APRN.CNP - 09/25/2023 9:49 AM EDT She is currently requiring 12 a month. She needs seen to see why they are this bad and what other treatment is indicated. Thank you Dali Rice APRN.CNP * Telephone Encounter - Kayla Montez LPN [...] 25, 2023 9:12 AM documented in this encounterMansfield Hospital07-24-2024 Telephone encounter Note * Telephone Encounter [...] Montez LPN September 25, 2023 9:12 AM [facility]07-24-2024 Telephone encounter Note* Telephone Encounter - [...] Montez LPN September 25, 2023 9:07 AM [facility]07-24-2024 Miscellaneous Notes* Telephone Encounter - Kayla [...] 25, 2023 9:07 AM documented in this encounterMansfield Hospital07-17-2024 Telephone encounter Note * Telephone Encounter - Donna Pickering MA - 09/18/2023 12:53 PM EDT Surgery has been scheduled as requested. Post op appointments have been scheduled and mailed to the patient. [facility]07-17-2024 Miscellaneous Notes* Telephone Encounter - Donna Pickering MA - 09/18/2023 12:53 PM EDT Surgery has been scheduled as requested. Post op appointments have been scheduled and mailed to the patient. * Telephone Encounter - Donna Pickering MA - 09/17/2023 9:58 AM EDT Please schedule OT for patient to follow post op appointment with Vickie Barth PA-C at [place] on 11/05/2023. I will mail out with post op visits. Thank you. * Telephone Encounter - Vickie Barth PA-C - 09/17/2023 9:43 AM EDT OT order signed. * Telephone Encounter - Donna Pickering MA - 09/17/2023 8:50 AM EDT Surgical request completed for right thumb CMC arthroplasty with tendon transfer and suspension at [facility] on 10/23/2023. Post op appointments have been scheduled. Please sign OT order. documented in this encounterMansfield Hospital07-16-2024 Telephone encounter Note * Telephone Encounter - Donna Pickering MA - 09/17/2023 9:58 AM EDT Please schedule OT for patient to follow post op appointment with Vickie Barth PA-C at [place] on 11/05/2023. I will mail out with post op visits. Thank you. [facility]07-16-2024 Telephone encounter Note* Telephone Encounter - Vickie Barth PA-C - 09/17/2023 9:43 AM EDT OT order signed. [facility] Work Phone: [phone] 249-846907-16-2024 Telephone encounter Note* Telephone Encounter - Donna Pickering MA - 09/17/2023 8:50 AM EDT Surgical request completed for right thumb CMC arthroplasty with tendon transfer and suspension at [facility] on 10/23/2023. Post op appointments have been scheduled. Please sign OT order. T [facility]07-01-2024 NoteHNO ID: [id number] Author: SEBAS MOLINA MD Service: ? 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 Patient would like injections. She does [...] pain chronic-Seeing Dr. Blankenship Bipolar affective disorder ([facility]) Chronic right shoulder pain Seeing Dr. Molina Closed dislocation of tarsometatarsal (joint) 01/18/2011 COPD (chronic obstructive pulmonary disease) ([facility]) Depressive disorder, not elsewhere classified 03/22/2005 Disorder of bone and cartilage, unspecified 02/09/2008 Distal radius fracture 01/05/2011 Dysuria Fibromyalgia GERD (gastroesophageal reflux disease) IBS (irritable bowel syndrome) Mitral regurgitation Severe Neck pain chronic-takes vicodin for this NSTEMI (non-ST elevated myocardial infarction) ([facility]) Seeing Dr. Hutton Other and unspecified hyperlipidemia Panic disorder without agoraphobia 03/22/2005 PMR (polymyalgia rheumatica) ([facility]) RA (rheumatoid arthritis) ([facility]) Unspecified essential hypertension 03/22/2005 Past Surgical History: [...] COPD Mother Breast Cancer Mother Heart Father [place] COPD Father other (Pulmonary fibrosis) Father Social [...] AFTER 2 HOURS. es (more content not included)...[facility]07-01-2024 History of Present illness Narrative* Sebas Molina MD - 09/02/2023 9:14 AM EDT Sebas Molina MD Department of Orthopaedics Orthopaedics [address] [facility] [address] Dept: [phone] Dept September 02, 2023 CHIEF COMPLAINT: Pain [...] fingers. 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 Patient would like injections. She does [...] pain chronic-Seeing Dr. Blankenship Bipolar affective disorder ([facility]) Chronic right shoulder pain Seeing Dr. Molina Closed dislocation of tarsometatarsal (joint) 01/18/2011 COPD (chronic obstructive pulmonary disease) ([facility]) Depressive disorder, not elsewhere classified 03/22/2005 Disorder of bone and cartilage, unspecified 02/09/2008 Distal radius fracture 01/05/2011 Dysuria Fibromyalgia GERD (gastroesophageal reflux disease) IBS (irritable bowel syndrome) Mitral regurgitation Severe Neck pain chronic-takes vicodin for this NSTEMI (non-ST elevated myocardial infarction) ([facility]) Seeing Dr. Hutton Other and unspecified hyperlipidemia Panic disorder without agoraphobia 03/22/2005 PMR (polymyalgia rheumatica) ([facility]) RA (rheumatoid arthritis) ([facility]) Unspecified essential hypertension 03/22/2005 Past Surgical History: [...] COPD Mother Breast Cancer Mother Heart Father [place] COPD Father other (Pulmonary fibrosis) Father Social [...] physician via US mail. Velvet Palacio MD [address] [facility] [address] Sebas Molina MD documented in this encounterMansfield Hospital07-01-2024 History of Present illness Narrative* Ivon Dukes, RT(R) - 09/02/2023 8:40 AM EDT Radiology [...] PATIENT PRESENTS WITH AN IMPLANTABLE OR ATTACHED LAND LEVELER: No RADIOLOGY DEPARTMENT: General X-ray: Exam(s) Completed: Upper Extremity X- Ray(s): Wrist, bilateral PERIPHERAL IV DATA: Not applicable SIGNED BY: RT Mary(Velia) September 02, 2023 8:58 AM documented in this encounterMansfield Hospital07-01-2024 NoteHNO ID: [id number] Author: IVON DUKES RT(R) Service: ? Author Type: Flight Surgeon Type: Progress Notes Filed: 09/02/2023 09:08 Note [...] PATIENT PRESENTS WITH AN IMPLANTABLE OR ATTACHED LAND LEVELER: No RADIOLOGY DEPARTMENT: General X-ray: Exam(s) Completed: Upper Extremity X-Ray(s): Wrist, bilateral PERIPHERAL IV DATA: Not applicable SIGNED BY: RT Mary(R) September 02, 2023 8:[address] [facility]06-28-2024 Telephone encounter Note* Telephone Encounter - Brionna Caceres LPN - 08/30/2023 8:47 AM EDT RX filled 07/2023 with 5 refills. Brionna Caceres LPN [facility]06-28-2024 Miscellaneous Notes* Telephone Encounter - Brionna Caceres LPN - 08/30/2023 8:47 AM EDT RX filled 07/2023 with 5 refills. Brionna Caceres LPN documented in this encounterMansfield Hospital06-28-2024 Telephone encounter Note * Telephone Encounter [...] Vincent LPN August 30, 2023 7:44 AM [facility] Work Phone: [phone]) 342-333406-28-2024 Miscellaneous Notes* Telephone Encounter - Ute Vincent [...] 30, 2023 7:44 AM documented in this encounterMansfield Hospital06-26-2024 NotePatient Outreach (INTMMN) LEYDA LOPEZ ([id number]) 1960 F Date Time Provider Department 08/28/23 VELVET PALACIO INTANTONIO During your visit today, we recorded the [...] for screening mammogram for breast cancer [Z12.31] Order(s):JEAN CLAUDE SCREENING W TITO [[id number]] Order #: [id number] FUTURE Prescriptions as of 09/02/2023 - SUMAtriptan [...] [M77.30] 01/08/2011 Chronic pain (more content not included)...[facility]06-17-2024 Telephone encounter Note* Telephone Encounter - Leola Shelley LPN - 08/19/2023 5:47 PM EDT Spoke to Patient, she has refills for Furosemide 40mg, not needed at this time. Leola Shelley LPN [facility]06-17-2024 Miscellaneous Notes* Telephone Encounter - Leola Shelley LPN - 08/19/2023 5:47 PM EDT Spoke to Patient, she has refills for Furosemide 40mg, not needed at this time. Leola Shelley LPN documented in this encounterMansfield Hospital06-14-2024 Telephone encounter Note * Telephone Encounter - Deborah Chaudhary RN - 08/16/2023 10:12 AM EDT Pt notified via [employer] message that Dr. Willams has requested she complete her pulmonary testing and follow-up CXR. Chronic steroid (I.e. Prednisone) refill will not be given at this time. Deborah Chaudhary RN August 16, 2023 10:14 AM [facility]06-14-2024 Miscellaneous Notes* Telephone Encounter - Deborah Chaudhary RN - 08/16/2023 10:12 AM EDT Pt notified via message that Dr. Willams has requested she [...] 15, 2023 3:39 PM documented in this encounterMansfield Hospital06-13-2024 Telephone encounter Note * Telephone Encounter [...] Barby Abdi August 15, 2023 3:39 PM [facility]06-11-2024 Telephone encounter Note* Telephone Encounter - [...] pharmacy. Pt verbalizes understanding. Lilliana Pruitt LPN [facility]06-11-2024 Miscellaneous Notes* Telephone Encounter - Lilliana [...] understanding. Lilliana Pruitt LPN documented in this encounterMansfield Hospital06-11-2024 Telephone encounter Note * Telephone Encounter - Elisa Christianson OCCA - 08/13/2023 8:53 AM EDT MC message sent to patient with providers message below. ROBINA Finnegan [facility]06-11-2024 Miscellaneous Notes* Telephone Encounter - Elisa [...] has 4 refills left of pregabalin at [facility] according to Medication Dispense Information (last dispensed [...] extended course of prednisone by pulmonary at [facility]. Instructed to stop prednisone after course completed. Brionna Caceres LPN documented in this encounterMansfield Hospital06-04-2024 Telephone encounter Note * Telephone Encounter - Leyda Lincoln LPN - 08/06/2023 1:40 PM EDT Attempted to contact patient but no answer. Left message for patient to call office and ask to speak to a nurse regarding medication refills. [facility]06-03-2024 Telephone encounter Note* Telephone Encounter - Melissa Rodríguez MD - 08/05/2023 11:00 PM EDT Patient should follow up with pulmonology since prednisone was to be tapered off as prescribed. If feels need more prednisone, should follow up with them to determine plan of care. She has 4 refills left of pregabalin at [facility] according to Medication Dispense Information (last dispensed 07/10/23 60 pills with 4 RFs). Medlist also shows she has refills. [facility] Work Phone: 1(132) 321-489406-03-2024 Telephone encounter Note* Telephone Encounter - Shelby [...] Please advise. Thank you. Shelby Woods MA. [facility]06-03-2024 Miscellaneous Notes* Telephone Encounter - Shelby [...] you. Shelby Woods MA. documented in this encounterMansfield Hospital06-03-2024 Telephone encounter Note * Telephone Encounter [...] Please advise. Thank you. Shelby Woods MA. [facility]06-03-2024 Miscellaneous Notes* Telephone Encounter - Shelby [...] you. Shelby Woods MA. documented in this encounterMansfield Hospital06-03-2024 Telephone encounter Note * Telephone Encounter [...] from pulm nurse below. Shelby Woods MA. [facility]06-03-2024 Telephone encounter Note* Telephone Encounter - Brionna Caceres LPN - 08/05/2023 8:56 AM EDT Patient was given 21 day extended course of prednisone by pulmonary at [facility]. Instructed to stop prednisone after course completed. Brionna Caceres LPN [facility]06-03-2024 Telephone encounter Note* Telephone Encounter - Brionna Caceres LPN - 08/05/2023 8:53 AM EDT 21 Day course of prednisone given on 07/22/2023. Patient to stop prednisone when course completed. Brionna Caceres LPN [facility]06-03-2024 Miscellaneous Notes* Telephone Encounter - Brionna Caceres LPN - 08/05/2023 8:53 AM EDT 21 Day course of prednisone given on 07/22/2023. Patient to stop prednisone when course completed. Brionna Caceres LPN documented in this encounterMansfield Hospital05-18-2024 Telephone encounter Note * Telephone Encounter [...] Please advise. Thank you. Edith Babcock RN. [facility]05-18-2024 Miscellaneous Notes* Telephone Encounter - Edith [...] you. Edith Babcock RN. documented in this encounterMansfield Hospital05-14-2024 History of Present illness Narrative* Fernando Fernandez APRN.RECOVERY COLLECTOR - 07/16/2023 7:26 AM EDT . documented in this encounterMansfield Hospital05-14-2024 Evaluation note* Diagnosis Stage 3 chronic kidney disease, unspecified whether stage 3a or 3b CKD (HCC)- Primary documented in this encounter [facility]05-09-2024 Telephone encounter Note* Telephone Encounter - [...] found Please advise. Thank you. Kelsie Fleming. [facility]05-09-2024 Miscellaneous Notes* Telephone Encounter - Kelsie [...] Thank you. Kelsie Fleming. documented in this encounterMansfield Hospital05-08-2024 Miscellaneous Notes* Telephone Encounter - Hilda Ibrahim RN - 07/10/2023 2:13 PM EDT Pt has appt tomorrow with Fernando Fernandez and will talk with her about the refill. documented in this encounterMansfield Hospital05-08-2024 Telephone encounter Note * Telephone Encounter - Hilda Ibrahim RN - 07/10/2023 2:13 PM EDT Pt has appt tomorrow with Fernando Fernandez and will talk with her about the refill. [facility]05-08-2024 Telephone encounter Note* Telephone Encounter - [...] Please advise. Thank you. Ute Vincent LPN. [facility] Work Phone: [phone] Miscellaneous Notes* Telephone Encounter - Ute Vincent [...] you. Ute Vincent LPN. documented in this encounterMansfield Hospital05-06-2024 Note* Addendum Note - Fernando Fernandez APRN.CNS - 07/08/2023 1:25 PM EDTAddended by: FERNANDO FERNANDEZ on: 07/08/2023 01:25 PM Modules accepted: Orders [facility]05-06-2024 Miscellaneous Notes* Addendum Note - Fernando Fernandez APRN.CNS - 07/08/2023 1:25 PM EDTAddended by: FERNANDO FERNANDEZ on: 07/08/2023 01:25 PM Modules accepted: Orders documented in this encounterMansfield Hospital05-06-2024 History of Present illness Narrative* Fernando Fernandez APRN.CNS - 07/08/2023 1:23 PM EDT She has an active script for atorvastatin good through October. Lisinopril good through September. Rx sent to [facility] * Ivett Hdez RN - 07/08/2023 12:59 PM EDT ACM ELIUD RN Reason for review or outreach: Medication Adherence Review Details: Cholesterol and Hypertension Suspect Condition Review per request of payer: [facility]/REQUESTED ACTION: Please assess and if present code/bill for suspected medical condition(s) per payer request: -Systemic Lupus Erythematosus.and Other Specified Systemic.Connective Tissue Disorders: Previously Coded, ICD10: M069: Rheumatoid arthritis, unspecified -CHRONIC OBSTRUCTIVE PULMONARY DISEASE, INTERSTITIAL LUNG DISORDERS, AND OTHER CHRONIC LUNG DISORDERS: Previously Coded, Ub-Jxyqjdqbbbx-Avdzjtgqln AEPB 250-50 MCG/ACT Thank you. Summary / Findings: Medication Adherence Review Details: MCM sent to patient LISINOPRIL TAB 40MG is due for refill on 07/07/23 at [facility] pharmacy ATORVASTATIN TAB 40MG is due for refill on 07/21/23 at [facility] pharmacy Suspect Condition Review per request of payer: Routed to PCP -Systemic Lupus Erythematosus.and Other Specified Systemic.Connective Tissue Disorders: Previously Coded, ICD10: M069: Rheumatoid arthritis, unspecified -CHRONIC OBSTRUCTIVE PULMONARY DISEASE, INTERSTITIAL LUNG DISORDERS, AND OTHER CHRONIC LUNG DISORDERS: Previously Coded, Jq-Gesoupgwoax-Qhrzfvdqqt AEPB 250-50 MCG/ACT Patient identified by name and date of . Patient Attributed To: [facility] Payer: [facility] Action Taken: Data submitted to [employer] message to patient Notation made to upcoming appointment notes requesting provider follow up Encounter routed to provider Contact made with patient: No, Chart review only. Ivett Hdez RN documented in this encounterMansfield Hospital05-03-2024 History of Present illness Narrative* Radha Willams MD - 07/05/2023 3:15 PM EDT Images from the original note were not included. . [facility] [place] Note Patient name: Leyda Lopez PCP: Velvet [...] intubated for her asthma. Recently admitted to [facility] with CAP, RSV, and congestive heart [...] View (Portable) Date of Exam: 06/04/23 Exam# [id number] Ordering Dr: Zurdo Howard DO STUDY: X-RAY [...] pain chronic-Seeing Dr. Blankenship Bipolar affective disorder ([facility]) Chronic right shoulder pain Seeing Dr. Molina Closed dislocation of tarsometatarsal (joint) 01/18/2011 COPD (chronic obstructive pulmonary disease) ([facility]) Depressive disorder, not elsewhere classified 03/22/2005 Disorder of bone and cartilage, unspecified 02/09/2008 Distal radius fracture 01/05/2011 Dysuria Fibromyalgia GERD (gastroesophageal reflux disease) IBS (irritable bowel syndrome) Mitral regurgitation Severe Neck pain chronic-takes vicodin for this NSTEMI (non-ST elevated myocardial infarction) ([facility]) Seeing Dr. Hutton Other and unspecified hyperlipidemia Panic disorder without agoraphobia 03/22/2005 PMR (polymyalgia rheumatica) ([facility]) RA (rheumatoid arthritis) ([facility]) Unspecified essential hypertension 03/22/2005 ALLERGIES Allergen Reactions [...] COPD Mother Breast Cancer Mother Heart Father [place] COPD Father other (Pulmonary fibrosis) Father PAST [...] 4. Former cigarette smoker -Former less than 71-uxqu-gvyv smoker -Continue tobacco free state -Does not qualify for lung cancer screening based on the amount of her previous Radha Willams MD [facility] [place] documented in this encounterMansfield Hospital04-11-2024 Miscellaneous Notes* Telephone Encounter - Fernando Fernandez APRN.CNS - 06/13/2023 8:08 AM EDT ok * Telephone Encounter - Homa Martinez RN - 06/12/2023 10:47 AM EDT Patient called and notified of below. Patient voiced understanding. Patient is scheduled with pulmonology on 07/04. Patient states that she had called [facility] for oxygen. So so does not need [...] She was to make an appointment with printing machinist and does not appear to have done [...] advise, Homa Martinez RN documented in this encounterMansfield Hospital04-08-2024 History of Present illness Narrative* Fernando [...] Kidney Disease) Stage 3, Gfr 30-59 Ml/Min (Formerly [facility]) Controlled Substance Agreement Signed Pre-Op Testing Chronic Right Shoulder Pain Chronic Pain in Right Shoulder Grief Reaction Osteoporosis, Post Menopausal Community Acquired Pneumonia Presents for emergency department follow-up visit. She was seen at [facility] 2023 for shortness of breath. She [...] for 7 days. Pulmonology visit: States no printing machinist Chest x-ray: Has not completed an x-ray to follow-up Cardiology: States no linotype machinist States has fibromyalgia and takes Lyrica for [...] for this NSTEMI (non-ST elevated myocardial infarction) ([facility]) Seeing Dr. Hutton JD (obstructive sleep apnea) Other and unspecified hyperlipidemia Panic disorder without agoraphobia 03/22/2005 PMR (polymyalgia rheumatica) ([facility]) RA (rheumatoid arthritis) ([facility]) Unspecified essential hypertension 03/22/2005 Social History Tobacco [...] unchanged for now. Statesdoes not have a printing machinist. States was not using oxygen prior to [...] mo recheck blood pressure, CHF, pneumonia, hypoxia siri cole or Dali 6 mo follow up MD Fernando Aranda APRN.RECOVERY COLLECTOR Medical Decision Making: Problems: Moderate: 1+ chronic illnesses with change Data: Unique source(s) for external note(s) reviewed: 1 Unique test result(s) reviewed: 3+ Unique test(s) ordered: 3+ Risk: Moderate: Drug management Medical Decision Making Level: 4 - Moderate documented in this encounterMansfield Hospital04-04-2024 Discharge summary Author Diana Bates [facility] June 06, 2023 11:05am Note Date/Time June 06, 2023 10:4 6am [facility] Medical Records Department [address] [place] [address] Discharge Summary 06/06/23 1043 MR#: [id number] Acct: [id number] Name: LEYDA LOPEZ Rep #:[id number] : 1960 62 From: Diana Bates MD PCP: SHMUEL PAGAN Status:ADM IN Location: [place] [address] Providers Date of Admission: 06/04/23 Date of [...] % (Auto) 63.7, Lymph % (Auto) 21.0, [place]% (Auto) 7.3, Eos % (Auto) 6.9 H, [...] Provider: Diana Bates Primary Care Provider: DALI RCIE Consulting Providers: Sid Hillman Discharge Orders/Prescriptions Prescriptions: [...] 120 0RF Referrals / Follow Up: DALI RICE, VINYL DIPPER-C [Primary Care Provider] - Within 1 Week Disposition Disposition (needs filled in before D/C Order can be placed): Home, Self Care Charges/Coding Visit Charges Inpatient E&M: 52242 Disch Hosp >30min 06/06/23 1105 <Electronically signed by Diana Bates MD> Cosigner Signature (if applicable): CC: VINYL DIPPER-C DALI RICE; Dr. Diana Bates MD~ Signed [facility] Work Phone: 1(203) 410-409304-04-2024 Progress note Author [facility] June 05, 2023 10:02pm Note Date/Time June 05, 2023 10:0 2pm [facility] Medical Records Department [address] [place] [address] Progress Note - Hospitalist 06/05/232201 MR#: [id number] Acct: [id number] Name: LEYDA LOPEZ Rep #:[id number] : 1960 62 From: Melissa Grady MD PCP: DALI RICE NP-C Status:ADM IN Location: [place] [address] Hospitalist Note Patient requesting transition back to Full Code status. Will change her status back to full code per patient request. 06/05/232201 <Electronically signed by Melissa Grady MD> Cosigner Signature (if applicable): CC: ~ Signed [facility] Work Phone: [phone] Progress note Author Diana [facility] June 05, 2023 9:04am Note Date/Time June 05, 2023 8:55 am [facility] Medical Records Department [address] [place] [address] Progress Note - Hospitalist 06/05/23 0853 MR#: [id number] Acct: [id number] Name: LEYDA LOPEZ Rep #:[id number] : 1960 62 From: Diana Bates MD PCP: SHMUEL PAGAN Status:ADM IN Location: [place] [address] Reason for Visit Reason for Visit: Diagnoses [...] 300 / 300 450 / 450 Balance 2.5 / 2021.5 -180 / -180 Lab / [...] (Auto) 77.2 H, Lymph % (Auto) 15.1L, [place] % (Auto) 4.7, Eos % (Auto) 1.8, [...] 74.4 H, Lymph % (Auto) 16.1 L, [place] % (Auto) 8.4, Eos % (Auto) 0.5, [...] documentation, 52Minutes. Charges/Coding Visit Charges Inpatient E&M: 63122 Subs Hosp L3 06/05/23 0904 <Electronically signed by Diana Bates MD> Cosigner Signature (if applicable): CC: ~ Signed [facility] Work Phone: 1(287) 770-924404-02-2024 History and physical note Author Sid Hillman [facility] June 04, 2023 9:28pm Note Date/Time June 04, 2023 2:28 pm [facility] Medical Records Department [address] [place] [address] H&P Exam - Hospitalist 06/04/23 1425 MR#: [id number] Acct: [id number] Name: LEYDA LOPEZ Rep #:[id number] : 1960 62 From: Sid Rivera PCP: DALI RICE, VINYL DIPPER-C Status:ADM IN Location: [place] [address] HPI - General General Date of Admission: [...] Patient WAS started on ceftriaxone and azithromycin. [facility] Medical History Bipolar 1 disorder COPD [...] (Auto) 77.2 H, Lymph % (Auto) 15.1L, [place] % (Auto) 4.7, Eos % (Auto) 1.8, [...] shock if needed Total time spent in wkkx-ar-azuj encounter in discussion of advanced directive 17 [...] (Auto) 77.2 H, Lymph % (Auto) 15.1L, [place] % (Auto) 4.7, Eos % (Auto) 1.8, [...] 12:48 EDT Reading Location ID and State: [address] [place] [address] , Service support , Charges/Coding Visit Charges Inpatient E&M: 88885 Init Hosp L3 Procedures Hospitalists Procedures: 76153 Advncd Care Plan 30 Min 06/04/23 1602 [...] RICE; Dr. Sid Hillman MD ~* Signed [facility] Work Phone: 1(772) 422-885304-02-2024 Discharge summary Author Zurdo Howard [facility] June 04, 2023 4:50pm Note Date/Time June 04, 2023 11:3 2am [facility] Medical Records Department [address] [place] [address] Emergency Department Summary 06/04/23 MR#: [id number] Acct: [id number] Name: LEYDA LOPEZ Rep #:[id number] : 1960 62 From: Zurdo Snider PCP: DALI OLDER, VINYL DIPPER-C Status:ADM IN Location: [place] [address] HPI History of Present Illness Chief Complaint: [...] gram-negative pneumonia that was complicated with RSV. PFSH PFS Medical History Bipolar 1 disorder COPD (chronic [...] Unknown] dextromethorphan-guaifenesin 30 mg-600 mg tablet extended oaicdhy13 hr (Mucinex DM) 2 tab PO BID [...] 77.2 H Lymph % (Auto) 15.1 L [place] % (Auto) 4.7 Eos % (Auto) 1.8 [...] with hypoxia Disposition Disposition: Acute Care Hospital [facility] What to do if you have Problems For any increased pain, shortness of breath, bleeding, nausea or vomiting, chestpain, or any unexpected problems, contact your Primary Care Provider. Call [facility] ([phone]) or report to the closest Emergency Room. Call 911 if necessary. 06/04/23 1650 <Electronically signed by Zurdo Howard DO> Cosigner Signature (if applicable): CC: SHMUEL RICE ~ Signed [facility] Work Phone: 1(227) 140-982904-02-2024 History and physical note Author Sid Hillman [facility] June 04, 2023 4:08pm Note Date/Time June 04, 2023 2:28 pm [facility] Medical Records Department [address] [place] [address] H&P Exam - Hospitalist 06/04/23 1425 MR#: [id number] Acct: [id number] Name: LEYDA LOPEZ Rep #:[id number] : 1960 62 From: Sid Rivera PCP: SHMUEL PAGAN Status:ADM IN Location: [place] [id number]- [id number] HPI - General General Date of [...] Patient WAS started on ceftriaxone and azithromycin. [facility] Medical History Bipolar 1 disorder COPD [...] (Auto) 77.2 H, Lymph % (Auto) 15.1L, [place] % (Auto) 4.7, Eos % (Auto) 1.8, [...] shock if needed Total time spent in wnvi-jo-kbis encounter in discussion of advanced directive 17 [...] (Auto) 77.2 H, Lymph % (Auto) 15.1L, [place] % (Auto) 4.7, Eos % (Auto) 1.8, [...] EDT , Charges/Coding Visit Charges Inpatient E&M: 75083 Init Hosp L3 Procedures Hospitalists Procedures: 26316 Advncd Care Plan 30 Min 06/04/23 1602 [...] RICE; Dr. Sid Hillman MD ~* Signed [facility] Work Phone: 1(652) 799-336503-22-2024 Miscellaneous Notes* Telephone Encounter - Ute Vincent LPN Nicolette - 05/24/2023 11:45 AM EDT Patient has [...] you. Ute Vincent LPN. [facility] Discharge summary Author Linwood Joe [facility] May 20, 2023 12:31pm Note Date/Time May 20, 2023 11: 24am [facility] Medical Records Department [address] [place] [address] Discharge Summary 05/20/23 1118 MR#: [id number] Acct: [id number] Name: LEYDA LOPEZ Rep #:[id number] : 1960 62 From: Linwood Joe DO PCP: SHMUEL PAGAN Status:ADM IN Location: [place] [address] Providers Date of Admission: 05/11/23 Primary Care Physician: DALI RICE NP-C Consultations 05/14/23 17:06 Consult: Infectious Disease Routine Consulting Provider: Merrick White Reason for Consult: Worsening of Pneumonia on right side EMERGENT Consult: No MD Notified: Yes Date Notified: 05/14/23 Time Notified: 17:06 Method of Notification: Text 05/19/23 07:52 Consult: Auto Design Checker / Pulmonary Medicine Routine Consulting Provider: Intensivists/Pulmonary Med Reason for Consult: RLL consolidation. EMERGENT Consult: No Notified: Yes Date Notified: 05/19/23 Time Notified: [...] 05/20/23 dextromethorphan-guaifenesin 30 mg-600 mg tablet extended nuxmyxa54 hr (Mucinex DM) 2 tab PO BID [...] ~5-6% unintentional weight loss x 2 weeks seating captain and PO meeting less than/ = 50% [...] Reason for Your Visit: Pneumonia Attending Provider: Linwood Joe Primary Care Provider: DALI RICE Consulting Providers: Himanshu Aldana; Sid Hillman; Merrick White; Roque Mirza; Chato Jon; Kun Willams; Domingo Pnen; Patricia Dyer; Frederic Gómez; Danielle Miguel; [place]; Grover Urias;Norman Lozano; Joel Holguin; Rahul Jaimes Discharge Orders/Prescriptions [...] DAILY Referrals / Follow Up: Pulmonary Medicine elliott Smith [Provider Group] - Within 1 Month DALI RICE NP-C [Primary Care Provider] - Within 2 Weeks Disposition Disposition (needs filled in before D/C Order can be placed): Home, Self Care Charges/Coding Visit Charges Inpatient E&M: 01164 Disch Hosp >30min 05/20/23 1134 <Electronically signed by Linwood Joe DO> Cosigner Signature (if applicable): CC: VINYL DIPPER-Ange RICE; Dr. Linwood Joe DO~ Signed ADDENDUM by Dr. Linwood Joe DO on 05/20/23 at 1231 Addendum Oxygen testing reviewed and patient requires home oxygen with portability as patient is amatory in the home and community. 05/20/23 1231<Electronically signed by Linwood Joe DO> Cosigner Signature (if applicable): cc: VINYL DIPPER-C DALI RICE; Dr. Linwood Joe DO ~* Signed [facility] Work Phone: 1(424) 262-900803-18-2024 Consult note Author Charles Arango [facility] May 20, 2023 12:17pm Note Date/Time May 20, 2023 12: 17pm [facility] Medical Records Department [address] [place] [address] Counseling Note - Pharmacy 05/20/23 1216 MR#: [id number] Acct: [id number] Name: LEYDA LOPEZ Rep #:[id number] : 1960 62 From: Charles Arango PCP: SHMUEL PAGAN Status:ADM IN Y Location: [place] [id number] Pharmacy Service has performed discharge medication reconciliation [...] 05/20/23 dextromethorphan-guaifenesin 30 mg-600 mg tablet extended huwcojc44 hr (Mucinex DM) 2 tab PO BID #14 tabs 05/20/23 05/20/23 1217 <Electronically signed by Charles He r> Date _ Charles Chujorgelionel Signature (if applicable): Date CC: ~ Signed [facility] Work Phone: 1(940) 654-158303-18-2024 Progress note Author Linwood Joe [facility] May 20, 2023 11:18am Note Date/Time May 20, 2023 7:5 9am [facility] Medical Records Department [address] [place] [address] [place] [address] Progress Note - Hospitalist 05/20/23 0757 MR#: [id number] Acct: [id number] Name: LEYDA LOPEZ Rep #:[id number] : 1960 62 From: Linwood Joe DO PCP: DALI RICE VINYL DIPPER-C Status:ADM IN Location: [place] [address] Reason for Visit Reason for Visit: Diagnoses [...] ~5-6% unintentional weight loss x 2 weeks seating captain and PO meeting less than/ = 50% [...] subcu daily 05/20/23 1118 <Electronically signed by Linwood Joe DO> Cosigner Signature (if applicable): CC: ~ Signed [facility] Work Phone: 1(855) 517-459003-18-2024 Progress note Author Kun Willams [facility] May 20, 2023 11:07am Note Date/Time May 20, 2023 11: 07am [facility] Medical Records Department [address] [place] [address] [place] [address] Progress Note - Auto Design Checker 05/20/23 1101 MR#: [id number] Acct: [id number] Name: LEYDA LOPEZ Rep #:[id number] : 1960 62 From: Kun Willams DO PCP: DALI RICE, VINYL DIPPERAfshinC Status:ADM IN Location: [place] [address] Assessment & Plan Assessment/Plan (1) Hypoxia: (2) [...] COPD but is not currently established witha printing machinist. She was admitted with an exacerbation related [...] discharge home. This note was generated with [employer] dictation software. It may contain incorrectwords, spelling, [...] ~5-6% unintentional weight loss x 2 weeks seating captain and PO meeting less than/ = 50% [...] Psych cooperative Charges/Coding Visit Charges Inpatient E&M: 80310 Subs Hosp L2 05/20/23 1107 <Electronically signed by Kun Willams DO> Cosigner Signature (if applicable): CC: ~ Signed [facility] Work Phone: 1(692) 408-855103-17-2024 Progress note Author Linwood Jopperi [facility] May 19, 2023 12:01pm Note Date/Time May 19, 2023 7:5 4am [facility] Medical Records Department [address] [place] [address] Progress Note - Hospitalist 05/19/23 0752 MR#: [id number] Acct: [id number] Name: LEYDA LOPEZ Rep #:[id number] : 1960 62 From: Linwood Joe DO PCP: DALI RICE VINYL DIPPER-C Status:ADM IN Location: [place] [address] Reason for Visit Reason for Visit: Diagnoses [...] ~5-6% unintentional weight loss x 2 weeks seating captain and PO meeting less than/ = 50% [...] subcu daily Charges/Coding Visit Charges Inpatient E&M: 85905 Subs Hosp L2 05/19/23 1201 <Electronically signed by Linwood Joe DO> Cosigner Signature (if applicable): CC: ~ Signed [facility] Work Phone: 1(438) 488-955903-17-2024 Consult note Author Norman Lozano [facility] May 19, 2023 11:18am Note Date/Time May 19, 2023 11: 01am [facility] Medical Records Department [address] [place] [address] Consultation - Auto Design Checker 05/19/23 1056 MR#: [id number] Acct: [id number] Name: LEYDA LOPEZ Rep #:[id number] : 1960 62 From: Norman Lozano MD PCP: DALI RICE, VINYL DIPPER-C Status:ADM IN Location: [place] [address] HPI Consult Data Date of Consult: 05/19/23 HPI Narrative Reason for Consultation: PNA, persistent consolidation HPI Narrative: 62YF PMH COPD, former tobacco abuse but reports quiting in her 20s, marijuana use, RA on meloxicam (reportedly hand/wrist involvement), CKD stage III, bipolardisorder who was initially admitted on 05/10 for RSV. She does not have a printing machinist and at home is only on PRN [...] @ 4 L with sats low/mid 90s. PFSH Medical History Bipolar 1 disorder COPD (chronic [...] 05/11/23 11:14 thru 05/19/23 06:00 Intake Total 86693.54 Output Total 2950 Balance 7646.54 Current Meds [...] 05/12/23 10:00 05/19/23 09:08 Fluticasone 0.05% 1 [place] Nasal.Sry NASAL 2 spray DAILY DAVIS Administration Furosemide 40 mg 05/14/23 17:05 05/19/23 09:13 Furosemide 40 Mg/4 Ml Vial IV 40 mg DAILY DAVIS Administration Protocol Guaifenesin 2 tablet 05/12/23 11:05 05/19/23 09:09 Guaifenesin/D-Methorphan Tab.Sr.12h PO Not Given BID [facility] Hydroxyzine Pamoate 25 mg 05/12/23 11:06 05/18/23 20:44 Hydroxyzine Danette 25 Mg Capsule PO 25 mg Q8H PRN PRN Administration anxiety Sodium Chloride 250 mls @ 15 mls/hr 05/11/23 14:34 05/18/23 18:17 IV 15 mls/hr .Y03T26K PRN Infusion Additional IVPB Infusion Sodium Chloride 250 mls @ 15 mls/hr 05/11/23 14:34 IV .Y85K62M PRN Saline Flush Piperacillin Sod/Tazobactam 50 mls [...] ~5-6% 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 Himanshu Aldana MD; Dr. Roque Mirza MD; Dr. Chato Jon MD; Dr. Kun Willams DO; Dr. Domingo Penn MD; Dr. Frederic Gómez MD; Dr. Danielle Miguel MD; Dr. [place] Berry MD; Dr. Grover Urias MD; Dr. Sid Hillman MD; Dr. Merrick White MD; Dr. Norman Lozano MD; Dr. Joel Holguin MD; Dr. Rahul Jaimes MD; Dr. 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 and PO meeting less than/ = 50% [...] % (Auto) 57.4, Lymph % (Auto) 25.5, [place] % (Auto) 11.0 H, Eos % (Auto) [...] Signed: Josh Mason MD at 8:39 EDT , Chest CT 05/17/23 09:10 IMPRESSION: Interval [...] subcu daily Charges/Coding Visit Charges Inpatient E&M: 72045 Subs Hosp L2 05/18/23 1243 <Electronically signed by Linwood Joe DO> Cosigner Signature (if applicable): CC: ~ Signed [facility] Work Phone: 1([phone]) 920-888303-15-2024 Miscellaneous Notes* Telephone Encounter - Jamarcus Barboza RN - 05/17/2023 4:24 PM EDT Patient has been identified by name and date of : Yes, Provider Ganrainer Date 05-17-23 Time 4:25 pm Patient phones for refill(s): Requested Prescriptions Pending Prescriptions Disp Refills meloxicam (MOBIC) 7.5 mg tablet 30 tablet 1 Sig: Take 1 tablet by mouth once daily. Date of last office visit in primary care: 05/02/2023 Date of next office visit in primary care: 06/04/2023 Please advise. Thank you. Jamarcus Barboza RN. [facility] Progress note Author Linwood Joe [facility] May 17, 2023 12:55pm Note Date/Time May 17, 2023 7:4 6am [facility] Medical Records Department [address] [place] [address] Progress Note - Hospitalist 05/17/23 0742 MR#: [id number] Acct: [id number] Name: LEYDA LOPEZ Rep #:[id number] : 1960 62 From: Linwood Joe DO PCP: DALI RICE VINYL DIPPER-C Status:ADM IN Location: [place] [address] Reason for Visit Reason for Visit: Diagnoses [...] 05/12/23 14:44 RMA (Rec: 05/12/23 14:44 RMA [id number]) Nutrition Malnutrition Evidence of Malnutrition Exists Yes [...] 0.50, AST 42 H, ALT 51, Alkaline Frltkhfatcn85, Total Protein 7.1, Albumin 2.2 L, Globulin [...] subcu daily Charges/Coding Visit Charges Inpatient E&M: 30548 Subs Hosp L2 05/17/23 1255 <Electronically signed by Linwood Joe DO> Cosigner Signature (if applicable): CC: ~ Signed [facility] Work Phone: 1(575) 422-510203-14-2024 Progress note Author Linwood Joe [facility] May 16, 2023 3:09pm Note Date/Time May 16, 2023 9:2 9am [facility] Medical Records Department [address] [place] [address] Progress Note - Hospitalist 05/16/23 0923 MR#: [id number] Acct: [id number] Name: LEYDA LOPEZ Joann Rep #:[id number] : 1960 62 From: Linwood Joe DO PCP: DALI RICE, VINYL DIPPER-C Status:ADM IN Location: [place] [address] Reason for Visit Reason for Visit: Diagnoses [...] 05/12/23 14:44 RMA (Rec: 05/12/23 14:44 RMA [id number]) Nutrition Malnutrition Evidence of Malnutrition Exists Yes [...] % (Auto) 60.7, Lymph % (Auto) 24.9, [place]% (Auto) 9.7, Eos % (Auto) 3.1, Baso [...] subcu daily Charges/Coding Visit Charges Inpatient E&M: 69530 Subs Hosp L2 05/16/23 4898 <Electronically signed by Linwood Joe DO> Cosigner Signature (if applicable): CC: ~ Signed [facility] Work Phone: 1(305) 313-686503-14-2024 Progress note Author Merrick White [facility] May 16, 2023 10:36am Note Date/Time May 16, 2023 10: 36am [facility] Medical Records Department [address] [place] [address] Progress Note - Infect Disease 05/16/23 1034 MR#: [id number] Acct: [id number] Name: LEYDA LOPEZ Rep #:[id number] : 1960 62 From: Merrick gunn MD PCP: DALI RICE, VINYL DIPPER-C Status:ADM IN Location: [place] [address] Physical Exam Narrative Feeling better, less dyspnea, [...] 1036 <Electronically signed by Merrick White MD> Kimberleyigner Signature (if applicable): CC: ~ Signed [facility] Work Phone: 1(148) 362-119903-13-2024 Progress note Author Sid Hillman [facility] May 15, 2023 4:59pm Note Date/Time May 15, 2023 4:5 1pm [facility] Medical Records Department [address] [place] [address] Progress Note - Hospitalist 05/15/23 1645 MR#: [id number] Acct: [id number] Name: LEYDA LOPEZ Rep #:[id number] : 1960 62 From: Sid Rivera PCP: SHMUEL PAGAN Status:ADM IN Location: [place] [id number] Reason for Visit Reason for Visit: Diagnoses [...] 05/12/23 14:44 RMA (Rec: 05/12/23 14:44 RMA [id number]) Nutrition Malnutrition Evidence of Malnutrition Exists Yes [...] 71.9 H, Lymph % (Auto) 17.1 L, [place] % (Auto) 8.0, Eos % (Auto) 1.3, [...] EST , Charges/Coding Visit Charges Inpatient E&M: 35942 Subs Hosp L2 05/15/23 8270 <Electronically signed by Sid Hillman MD> Cosigner Signature (if applicable): CC: ~ Signed [facility] Work Phone: 1(840) 809-681203-13-2024 Consult note Author Merrick White [facility] May 15, 2023 1:29pm Note Date/Time May 15, 2023 1:2 9pm [facility] Medical Records Department [facility] [place] [address] Consultation - Infectious Dx 05/15/23 1326 MR#: [id number] Acct: [id number] Name: LEYDA LOPEZ Rep #:[id number] : 1960 62 From: Merrick gunn MD PCP: DALI RICE, VINYL DIPPER-C Status:ADM IN Location: [place] [address] Assessment & Plan Assessment/Plan (1) RSV infection: [...] performed and neg except as noted above. [facility] Medical History Bipolar 1 disorder COPD [...] 05/12/23 14:44 RMA (Rec: 05/12/23 14:44 RMA [id number]) Nutrition Malnutrition Evidence of Malnutrition Exists Yes [...] 71.9 H, Lymph % (Auto) 17.1 L, [place] % (Auto) 8.0, Eos % (Auto) 1.3, [...] 13:08 EDT Reading Location ID and State: [facility] / OR , Service support , 05/15/23 1329 <Electronically signed by Merrick White MD> Cosigner Signature (if applicable): CC: VINYL DIPPER-C DALI RICE; Dr. Himanshu Aldana MD; Dr. Merrick White MD~ Signed [facility] Work Phone: 1([phone]) 336-881603-13-2024 Consult note Author Sid Hillman [facility] May 15, 2023 7:00am Note Date/Time May 14, 2023 6:3 5pm [facility] Medical Records Department [address] [place] [address] Pharmacokinetic/Renal -Consult 05/14/23 1833 MR#: [id number] Acct: [id number] Name: LEYDA LOPEZ Rep #:[id number] : 1960 62 From: Arley garcia PCP: SHMUEL PAGAN Status:ADM IN Y Location: [facility] [id number]- 1 Consult Antibiotic Management Pharmacy has been consulted [...] then continue with 500mg IV q12h per [facility] dosing protocol. Will check a trough before the 4th total dose. Pharmacy Service will continue to monitor and adjust dosing as required. Follow-Up Labs Follow-Up Labs: Trough: Vancomycin Date/Time Labs Ordered Labs to be done on [date and time ordered]: 05/16/23 05:30 05/14/23 8528 <Electronically signed by Arley Garcia erg> Date _ Arley De Andajaimie 05/15/23 0700 <Electronically signed by Sid Hillman MD> Cosigner Signature (if applicable): Date Sid Hillman MD CC: ~ Signed [facility] Work Phone: 1(803) 343-660803-12-2024 Progress note Author Sid Hillman [facility] May 14, 2023 5:22pm Note Date/Time May 14, 2023 5:0 7pm [facility] Medical Records Department [address] [place] [address] Progress Note - Hospitalist 05/14/23 1703 MR#: [id number] Acct: [id number] Name: LEYDA LOPEZ Joann Rep #:[id number] : 1960 62 From: Sid Rivera PCP: SHMUEL PAGAN Status:ADM IN Location: [place] [address] Reason for Visit Reason for Visit: Diagnoses [...] 05/12/23 14:44 RMA (Rec: 05/12/23 14:44 RMA [id number]) Nutrition Malnutrition Evidence of Malnutrition Exists Yes [...] (Auto) 78.2 H, Lymph % (Auto)12.0 L, [place] % (Auto) 6.7, Eos % (Auto) 0.9, [...] is 40 minutes. Visit Charges Inpatient E&M: 90407 Subs Hosp L3 05/14/23 1708 <Electronically signed by Sid Hillman MD> Cosigner Signature (if applicable): CC: ~ Signed ADDENDUM by Dr. Sid Hillman MD on 05/14/23 at 1722 Addendum Vancomycin stopped ordered. Pharmacy to monitor trough and dosing. ID consulted. 05/14/23 1722<Electronically signed by Sid Hillman MD> Cosigner Signature (if applicable): cc: ~* Signed [facility] Work Phone: 1(398) 305-874903-11-2024 Progress note Author Sid Hillman [facility] May 13, 2023 2:49pm Note Date/Time May 13, 2023 2:4 9pm [facility] Medical Records Department [address] [place] [address] Progress Note - Hospitalist 05/13/23 1444 MR#: [id number] Acct: [id number] Name: LEYDA LOPEZ Rep #:[id number] : 1960 62 From: Sid Rivera PCP: DALI RICE VINYL DIPPER-C Status:ADM IN Location: [facility] [id number]- [id number] Reason for Visit Reason for Visit: [...] 05/12/23 14:44 RMA (Rec: 05/12/23 14:44 RMA [id number]) Nutrition Malnutrition Evidence of Malnutrition Exists Yes [...] 77.1 H, Lymph % (Auto) 12.0 L, [place] % (Auto) 7.4, Eos % (Auto) 1.1, [...] EST , Charges/Coding Visit Charges Inpatient E&M: 66014 Subs Hosp L2 05/13/23 1449 <Electronically signed by Sid Hillman MD> Cosigner Signature (if applicable): CC: ~ Signed [facility] Work Phone: 1(240) 251-200203-10-2024 Progress note Author Sid Hillman [facility] May 12, 2023 2:40pm Note Date/Time May 12, 2023 10: 51am [facility] Medical Records Department [address] [place] [address] Progress Note - Hospitalist 05/12/23 1049 MR#: [id number] Acct: [id number] Name: LEYDA LOPEZ Rep #:[id number] : 1960 62 From: Sid Rivera PCP: DALI RICE, VINYL DIPPER-C Status:ADM IN Location: [place] [address] Reason for Visit Reason for Visit: Diagnoses [...] 78.4 H, Lymph % (Auto) 10.8 L, [place] % (Auto) 8.6, Eos % (Auto) 0.0, [...] Clarity Clear, Urine pH 5.0, Ur Specific Taylor 1.010, Urine Protein 100 H, Urine Glucose [...] 73.9 H, Lymph % (Auto) 15.1 L, [place] % (Auto) 8.0, Eos % (Auto) 0.4, [...] Clarity Clear, Urine pH 5.0, Ur Specific Taylor 1.010, Urine Protein 100 H, Urine Glucose [...] 73.9 H, Lymph % (Auto) 15.1 L, [place] % (Auto) 8.0, Eos % (Auto) 0.4, [...] EST , Charges/Coding Visit Charges Inpatient E&M: 04534 Subs Hosp L2 05/12/23 1440 <Electronically signed by Sid Hillman MD> Cosigner Signature (if applicable): CC: ~ Signed [facility] Work Phone: 1(542) 978-624903-09-2024 History and physical note Author Himanshu Aldana [facility] May 11, 2023 5:56pm Note Date/Time May 11, 2023 5:56 pm [facility] Medical Records Department [address] [place] [address] H&P Exam - Hospitalist 05/11/23 1743 MR#: [id number] Acct: [id number] Name: LEYDA LOPEZ Rep #:[id number] : 1960 62 From: Himanshu Aldana MD PCP: DALI RICE, VINYL DIPPER-C Status:ADM IN Location: [facility] [id number]- 1 HPI - General General Date of [...] nicotine, occasional marijuana use, intermittent alcohol use. [facility] Medical History Bipolar 1 disorder COPD [...] 78.4 H, Lymph % (Auto) 10.8 L, [place] % (Auto) 8.6, Eos % (Auto) 0.0, [...] Clarity Clear, Urine pH 5.0, Ur Specific Taylor 1.010, Urine Protein 100 H, Urine Glucose [...] the hypokalemia Charges/Coding Visit Charges Inpatient E&M: 86086 [facility] 05/11/23 1756 <Electronically signed by Himanshu Aldana MD> Cosigner Signature (if applicable): CC: VINYL DIPPER-C DALI RICE; Dr. Himanshu Aldana MD~ Signed [facility] Work Phone: 1(657) 555-176303-09-2024 Discharge summary Author Ness Yu [facility] May 11, 2023 5:38pm Note Date/Time May 11, 2023 11:1 8am [facility] Medical Records Department [address] [place] [address] Emergency Department Summary 05/11/23 MR#: [id number] Acct: [id number] Name: LEYDA LOPEZ Rep #:[id number] : 1960 62 From: [place] PCP: SHMUEL PAGAN Status:ADM IN Location: [place] [id number] <Statement entered by Ness Yu MD - [...] recent antibiotic use, denies any recent travel. [facility] Medical History Bipolar 1 disorder [...] 78.4 H Lymph % (Auto) 10.8 L [place] % (Auto) 8.6 Eos % (Auto) 0.0 [...] Clarity Clear Urine pH 5.0 Ur Specific Taylor 1.010 Urine Protein 100 H Urine Glucose [...] as follows: Comments: Sinus tachycardia with short OK, rate 110 bpm, OK 94 ms, QRS duration 90 ms, no [...] Provider] - Disposition Disposition: Acute Care Hospital [facility] What to do if you have Problems For any increased pain, shortness of breath, bleeding, nausea or vomiting, chestpain, or any unexpected problems, contact your Primary Care Provider. Call [facility] ([phone]) or report to the closest Emergency Room. Call 911 if necessary. 05/11/23 1351 <Electronically signed by Juan [place]> Cosigner Signature (if applicable): 05/11/23 1738 <Electronically signed by Ness Yu MD> CC: SHMUEL RICE ~ Signed [facility] Work Phone: [phone] 419-852703-08-2024 Miscellaneous Notes* Telephone Encounter - Millie Askew - 05/10/2023 11:11 AM EST Patient was inappropriately scheduled with Dr. Bonilla for Fibromyalgia pain. Dr. Bonilla only treats pain related to the spine, hips, sacroiliac joints, and knees. Called and left voicemail for patient informing her of appt cancellation. Asked that she call our office at [phone] to reschedule with a different pain mgmt provider. Message also sent via UpOut. Millie Askew documented in this encounterMansfield Hospital03-08-2024 Miscellaneous Notes* Telephone Encounter - Jamarcus Barboza RN - 05/10/2023 10:42 AM EST [facility] requesting several refills for patient. Phoned patient to see if she wants Rx's sent to [facility]. Patient states she does not want her medications sent to [facility] and remove [facility] from her list. Removed [facility] from list. States she only wants to use [facility]. Reports she does not need refills at this time. documented in this encounterMansfield Hospital03-08-2024 History of Present illness Narrative* Nasrin Orozco MA - 05/10/2023 10:30 AM EST POPULATION HEALTH NAVIGATION OUTREACH Action/FYI Last Wellness exam 03/27/2019 Mammogram ordered 09/19/2022 Reason for Outreach Care Gap/HCC or Scheduling Wellness Visits Care Gaps due: Medicare Annual Wellness Visit Breast Cancer Screening Colorectal Cancer Screening Patient Contacted: Unable or unnecessary to reach patient: Left message UpOut message sent Navigation Signature: Nasrin Jenkins MA May 10, 2023 10:30 AM documented in this encounterMansfield Hospital03-05-2024 Miscellaneous Notes* Telephone Encounter - Pamela [...] assist with scheduling reclast. Thanks, Mari Martinez APRN.BULK PLANT AGENT * Telephone Encounter - Pamela Khan - [...] you! * Telephone Encounter - Mari Martinez APRN.MARIETTA - 05/02/2023 11:38 AM EST Please call and inform the patient that reclast was approved. Please assist with scheduling reclast. She is due now. Please advise her to stay well hydrated the day of the infusion. Please ask her tohave labs done 2 weeks after the reclast to check a calcium level. Please change her f/u to be in 4-5 months with Thermal Cutting Tracer Machine Operator to establish care. Telephone on 05/02/23 CALCIUM TOTAL BLD Mari Mueller APRN.BULK PLANT AGENT documented in this encounterMansfield Hospital02-29-2024 Miscellaneous Notes* Telephone Encounter - Leola [...] you. Leola Shelley LPN. documented in this encounterMansfield Hospital02-29-2024 History of Present illness Narrative* Dali Rice APRN.MARIETTA - 05/02/2023 9:44 AM EST CC: Patient [...] pain chronic-Seeing Dr. Blankenship Bipolar affective disorder ([facility]) Chronic right shoulder pain Seeing Dr. Molina Closed dislocation of tarsometatarsal (joint) 01/18/2011 COPD (chronic obstructive pulmonary disease) ([facility]) Depressive disorder, not elsewhere classified 03/22/2005 Disorder of bone and cartilage, unspecified 02/09/2008 Distal radius fracture 01/05/2011 Dysuria Fibromyalgia GERD (gastroesophageal reflux disease) IBS (irritable bowel syndrome) Mitral regurgitation Severe Neck pain chronic-takes vicodin for this NSTEMI (non-ST elevated myocardial infarction) ([facility]) Seeing Dr. Hutton JD (obstructive sleep apnea) Other and unspecified hyperlipidemia Panic disorder without agoraphobia 03/22/2005 PMR (polymyalgia rheumatica) ([facility]) RA (rheumatoid arthritis) ([facility]) Unspecified essential hypertension 03/22/2005 PAST SURGICAL HISTORY Procedure Laterality Date COLONOSCOPY FLX DX W/COLLJ SPEC WHEN PFRMD 01/23/08 Normal COLONOSCOPY FLX DX W/COLLJ SPEC WHEN PFRMD 01/09/2012 Colonoscopy DIAGNOSTIC ARTHROSCOPY SHOULDER +- SYNOVIAL BX Right 04/10/2017 Right shoulder arthroscopy with open SAD and rotator cuff repair EGD TRANSORAL BIOPSY SINGLE/MULTIPLE 11/21/08 Minimal antral gastritis HEART CATHETERIZATION 01/2016 no [...] Problem Relation Age of Onset Heart Father [place] COPD Father other (Pulmonary fibrosis) Father COPD [...] - Instructed patient to contact office or [id number] after-hours promptly should condition worsen or any new symptoms appear. - Counseling Center [facility] and after hours crisis line 2. Anxiety [...] plan. Dali Rice APRN.CNP documented in this encounterMansfield Hospital02-12-2024 History of Present illness Narrative* Genia [...] 15, 2023 4:07 PM documented in this encounterMansfield Hospital02-12-2024 Miscellaneous Notes* Telephone Encounter - Cara Palomo LPN - 04/15/2023 2:10 PM EST Electronic PA completed for ondansetron. This was denied. To: Dali Krystal From: [facility] Phone: Fax: [phone] Reference #: [id number] RE: Prior Authorization Request __ Status of Request: Deny Medication Name: Ondansetron Tab 4mg Odt [facility]: [id number] Decision Notes: Medicare allows us to cover a drug only when it is a Part D drug. A Part D drug is one that is used for a medically accepted indication. A medically accepted indication means the use is approved by the Food and Drug Administration (FDA) OR the use is supported by one of the following accepted references: (1) [facility] Formulary Service Drug Information. (2) [employer] DRUGDEX Information System. ONDANSETRON TAB 4MG ODT is not FDA approved for your medical condition(s): Nausea. These condition(s) are not supported by one of the accepted references. Therefore your drug is denied because it is not being used for a medically accepted indication. documented in this encounterMansfield Hospital02-12-2024 Miscellaneous Notes* Telephone Encounter - Ute [...] you. Ute Vincent LPN. documented in this encounterMansfield Hospital02-12-2024 Miscellaneous Notes* Telephone Encounter - Ute [...] you. Ute Vincent LPN. documented in this encounterMansfield Hospital12-06-2023 Miscellaneous Notes* Telephone Encounter - Gustavo [...] 22 Please advise. Thank you. Gustavo Wells RN. documented in this encounterMansfield Hospital11-27-2023 Miscellaneous Notes* Telephone Encounter - Ruth [...] refill encounter from 01/20. Pt notified Dali Krystal, BULK PLANT AGENT is out of the office today and will return Weds. Ruth Tobar RN 01/21/23 2:07 PM Note Pt returned call [...] sooner. Suellen Zaragoza LPN documented in this encounterMansfield Hospital11-21-2023 History of Present illness Narrative* Genia Nuñez RN - 01/22/2023 2:23 PM EST CDM Telephonic Outreach Provider Action/FYI Patient called PCP office today requesting medications. PCP follow up scheduled Multiple attempts to reach Contacted for: Routine Telephonic Outreach Contact made with patient: No, left message. Genia Nuñez RN January 22, 2023 2:58 PM documented in this encounterMansfield Hospital11-20-2023 Miscellaneous Notes* Addendum Note - Ruth [...] but needs an appointment. documented in this encounterMansfield Hospital10-26-2023 Miscellaneous Notes* Telephone Encounter - Dali [...] you. Danni Cobian LPN. documented in this encounterMansfield Hospital10-26-2023 Miscellaneous Notes* Telephone Encounter - Danin Cobian LPN - 12/27/2022 8:29 AM EDT [...] you. Danni Cobian LPN. documented in this [facility]10-10-2023 History of Present illness Narrative* Genia Nuñez RN - 12/11/2022 1:22 PM EDT [facility] Telephonic Outreach Provider Action/FYI Multiple attempts to reach patient Contacted for: Routine Telephonic Outreach Contact made with patient: No, left message. Genia Nuñez RN December 11, 2022 1:23 PM documented in this [facility]10-09-2023 History of Present illness Narrative* Genia Nuñez RN - 12/10/2022 12:17 PM EDT [facility] Telephonic Outreach Provider Action/FYI Contacted for: Routine Telephonic Outreach Contact made with patient: No, left message. Genia Nuñez RN December 10, 2022 12:21 PM documented in this [facility]10-02-2023 Miscellaneous Notes* Telephone Encounter - Ute Vincent [...] Thank you. Ute Vincent documented in this encounterMansfield Hospital09-20-2023 Miscellaneous Notes* Telephone Encounter - Dali [...] time. Will send message to pt via UpOut to contact office and speak with triage staff. Kelsei Stafford LPN documented in this encounterMansfield Hospital09-19-2023 Miscellaneous Notes* Telephone Encounter - Kimberly [...] and advise. Genevieve Ervin documented in this encounterMansfield Hospital09-18-2023 Miscellaneous Notes* Telephone Encounter - Barb Quiñones APRN.CNP - 11/19/2022 2:09 PM EDT See other encounter. documented in this encounterMansfield Hospital09-13-2023 Discharge summary Author Sánchez Bhatti [facility] November 14, 2022 3:02pm Note Date/Time November 14, 2022 11:31am [facility] Medical Records Department [address] [place] [address] Emergency Department Summary 11/14/22 MR#: [id number] Acct: [id number] Name: LEYDA LOPEZ Rep #:[id number] : 1960 61 From: Sánchez Bhatti DO PCP: DALI RICE, VINYL DIPPER-C Status:REG ER Location: ED HPI HPI - [...] diarrhea. She has not had a fever. [facility] Medical History (Updated 11/14/22 @ [...] better. She is given a prescription for [place], Zofran, cefpodoxime. Return precautions were discussed. Urine [...] 74.9 H Lymph % (Auto) 17.0 L [place] % (Auto) 6.4 Eos % (Auto) 0.9 [...] Clarity Clear Urine pH 6.0 Ur Specific Taylor 1.015 Urine Protein 100 H Urine Glucose [...] Referrals: Velvet Palacio MD [Med Staff - Combo Welder] - Disposition Disposition: Home, Self Care What to do if you have Problems For any increased pain, shortness of breath, bleeding, nausea or vomiting, chestpain, or any unexpected problems, contact your Primary Care Provider. Call [facility] ([phone]) or report to the closest Emergency Room. Call 911 if necessary. 11/14/22 1502 <Electronically signed by Sánchez Bhatti DO> Cosigner Signature (if applicable): CC: VINYL DIPPER-C DALI RICE ~ Signed [facility] Work Phone: 1(478) 540-309609-11-2023 Miscellaneous Notes* Telephone Encounter - Leola Shelley [...] you. Leola Shelley LPN documented in this encounterMansfield Hospital09-11-2023 History of Present illness Narrative* Genia Nuñez, RICARDO - 11/12/2022 12:45 PM EDT [facility] Telephonic Outreach Provider Action/FYI Called 2 numbers and they are not working Did not call SO due to issues noted in [facility] Contacted for: Routine Telephonic Outreach Contact made with patient: No, left message. Genia Nuñez RN November 12, 2022 12:48 PM documented in this encounterMansfield Hospital09-01-2023 Miscellaneous Notes* Telephone Encounter - Ute Vincent LPN - 11/02/2022 1:00 PM EDT Patient notified and verbalized understanding. Patient stated that she smokes a lot of dope, she also stated she is going to have to make a choice. Awaiting records. Please review. Ute Vincent LPN * Telephone Encounter -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 Miscellaneous Notes* Telephone Encounter - Lilliana [...] reconsulted to GI. Thank you Dali Rice APRN.BULK PLANT AGENT documented in this encounterMansfield Hospital10-18-2022 History of Present illness Narrative* Eulalia Jeong RN - 12/19/2021 7:40 AM EDT [facility] Provider Action/FYI: CHF CKD COPD Escalation to pool for symptoms that your PCP needs to know about, SOB, hydration concerns, wheezing, difficulty lying flat Of note, patient requested provider appt via [employer] - Inform[employer]ticaharTaxiBeat request, and is scheduled with [facility] provider 12/29/21 Call 1- left message Call 2- left message [employer] message sent Message received via: Crowdcube - No contact made with patient Left Message for PatientFreddy Madrigal my name is Eulalia Jeong RN [facility]. I am calling about your responses to our InS[employer] Home Monitoring questionnaire. Sorry I am not able to speak with you. If you have a problem that needs to be addressed by your physician please contact your PCP office--End Outreach documented in this [facility]10-14-2022 Miscellaneous Notes* Telephone Encounter - Leola Shelley LPN - 12/15/2021 2:32 PM EDT Duplicate request for Amitriptyline. Leola Shelley LPN documented in this [facility]10-14-2022 Miscellaneous Notes* Telephone Encounter - Leola Shelley [...] you. Leola Shelley LPN documented in this encounterMansfield Hospital10-03-2022 History of Present illness Narrative* Kelsea Brown APRN.CNP - 12/04/2021 5:53 PM EDT This is an [facility] eVisit note for Leyda Rolleit/Questionnaire reviewed The chief complaint for the visit - Patient presents with: Dizziness Recommendations/Treatment plan - See My Chart Message to patient Time spent <1 min Kelsea Brown APRN.CNP documented in this encounterMansfield Hospital09-09-2022 Miscellaneous Notes* Telephone Encounter - Lilliana [...] you. Lilliana Pruitt LPN documented in this encounterMansfield Hospital09-08-2022 History of Present illness Narrative* Terri Johnston RN - 11/09/2021 4:00 PM EDT open in error documented in this encounterMansfield Hospital09-08-2022 Miscellaneous Notes* Telephone Encounter - Danni [...] review. Danni Serrano MA documented in this encounterMansfield Hospital09-08-2022 Miscellaneous Notes* Telephone Encounter - Rita Blanco MA - 11/09/2021 12:06 PM EDT Patient phones requesting different pharmacy Requested Prescriptions Pending Prescriptions Disp Refills hyoscyamine sublingual (LEVSIN SL) 0.125 mg 90 tablet 1 Please review and advise. Rita Blanco MA documented in this encounterMansfield Hospital09-08-2022 History of Present illness Narrative* Terri Johnston RN - 11/09/2021 11:41 AM EDT [facility] Provider Action/FYI: Unable to reach patient x 2, left VM sent my chart Message Message received via: InSight - No contact made with patient Left Message for Patient. Rohan my name is Terri Johnston RN [facility]. I am calling about your responses [...] appointment in Internal medicine on 11/27/21 with 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 ASSOCIATE Pt sent a my chart message requesting Headache medication Message received via: InSight - No contact made with patient Left Message for PatientFreddy Madrigal my name is Terri Johnston RN [facility]. I am calling about your responses to our [employer] Home Monitoring questionnaire. Sorry I am not able to speak with you. If you have a problem that needs to be addressed by your physician please contact your PCP office--End Outreach documented in this encounterMansfield Hospital08-19-2022 Miscellaneous Notes* Telephone Encounter - Kayla Montez LPN - 10/20/2021 10:02 AM EDT Pharmacy calls in requesting the following refill(s): Requested Prescriptions Pending Prescriptions Disp Refills hyoscyamine sublingual (LEVSIN SL) 0.125 mg [Pharmacy Med Name: hyoscyamine 0.125 mg sublingual tablet] 90 tablet 1 Sig: DISSOLVE ONE TABLET UNDER THE TONGUE THREE TIMES DAILY @ 9AM-1PM-5PM (VIAL) documented in this encounterMansfield Hospital08-16-2022 Miscellaneous Notes* Telephone Encounter - Radha Elliott Ma - 10/17/2021 11:58 AM EDT Patient last visit 07/26/21 Follow up appointment scheduled none Radha Elliott Ma documented in this encounterMansfield Hospital08-12-2022 Miscellaneous Notes* Telephone Encounter - Liliana [...] once daily. The prescription(s) were escripted to [facility]; Phone : [phone] by Liliana Short RN. Escript confirmed receipt from pharmacy at 6:52 PM Patient/Family notified: Yes Liliana Short RN documented in this encounterMansfield Hospital08-12-2022 Miscellaneous Notes* Telephone Encounter - Gustavo [...] you. Gustavo Wells RN documented in this encounterMansfield Hospital08-05-2022 Miscellaneous Notes* Telephone Encounter - Gustavo [...] knee joints. If agree, please send to [facility] pharmacy. Edith Babcock RN documented in this encounterMansfield Hospital08-04-2022 History of Present illness Narrative* Juan Hillman RN - 10/05/2021 11:31 AM EDT [facility] Provider Action/FYI: Call to Pt left a message to verify CHF/ COPD/ CKD or other symptoms, provided Insight Monitoring Questionnaire location reminder Contact Made with Patient: No, first attempt, left message. Rohan Lopez. This is Kady Martinez RN your Bench Technician [facility] the [facility]. I am calling to check in with you concerning the MyChart questionnaire you have been receiving from me. I will call you again and am looking forward to speaking with you. (Bench Technician entersnex day in next patient outreach) Kady Martinez RN October 05, 2021 11:31 AM documented in this encounterMansfield Hospital07-11-2022 Miscellaneous Notes* Telephone Encounter - Danni [...] review. Danni Serrano MA documented in this encounterMansfield Hospital07-08-2022 Miscellaneous Notes* Telephone Encounter - Dali [...] Anne Marie Rivera LPN documented in this encounterMansfield Hospital06-30-2022 History of Present illness Narrative* Juan Hillman RN - 08/31/2021 12:52 PM EDT [facility] Provider Action/FYI: Call to Pt unable to leave a message to verify CHF/ COPD/ CKD symptom status and needs. Contact Made with Patient: No, second attempt, left message. Rohan Lopez. This is Kady Martinez RN your Bench Technician [facility]. I am calling to check in with you concerning the MyChart questionnaire you have been receiving from me. I will call you again next week and am looking forward to speaking with you. (Bench Technician enters next week's date in next patient outreach) Kady Martinez RN August 31, 2021 12:52 PM * Juan Hillman RN - 08/30/2021 4:06 PM EDT [facility] Provider Action/FYI: Call to Pt unable to leave a message to verify CHF/ COPD/ CKD symptom status and needs. Contact Made with Patient: No, first attempt, left message. Rohan Lopez. This is Kady Martinez RN your Bench Technician from the [facility]. I am calling to check in with you concerning the MyChart questionnaire you have been receiving from me. I will call you again tomorrow and am looking forward to speaking with you. (Bench Technician enters next day in next patient outreach) Kady Martinez RN August 30, 2021 4:06 PM documented in this encounterMansfield Hospital06-23-2022 Miscellaneous Notes* Telephone Encounter - Lynette [...] 07/26/21. Ruth Tobar RN documented in this encounterMansfield Hospital06-15-2022 Miscellaneous Notes* Telephone Encounter - Michelle [...] advise, Homa Martinez RN documented in this encounterMansfield Hospital06-13-2022 Miscellaneous Notes* Telephone Encounter - Kayla Montez LPN - 08/14/2021 12:59 PM EDT Last office visit 08/23/2020 documented in this encounterMansfield Hospital06-10-2022 History of Present illness Narrative* Nasrin Jenkins MA - 08/11/2021 3:31 PM EDT POPULATION HEALTH NAVIGATION OUTREACH Action/FYI Patient due for BP check and Mammogram Call placed to patient - voicemail full, unable to leave message AsicAheadt message sent to patient Pt identified by name and : NO Outreach Outcome/Action Unable to reach patient: Phone number not valid / voicemail full [email or web address] message sent Did you use a PCP flex slot to schedule this appointment? N/A Reason for Outreach Care Gap or Scheduling/Wellness visits Payer: Payor: [facility] MEDICARE / Plan: [facility] DUAL COMPLETE HMO SNP / Product Type: Medicare / Care Gap Reviewed:: Breast Cancer screening Controlling Blood Pressure Reminder: Reminder note to check Health Maintenance for items below Health Maintenance items due: BP CONTROLLED (<130/80) Never done MAMMOGRAM due on 08/06/2017 Message Sent to Practice: No Navigation Signature: Nasrin Jenkins Population Health Navigator August 11, 2021 3:31 PM documented in this encounterMansfield Hospital05-25-2022 Miscellaneous Notes* Telephone Encounter - Ute Henry LPN - 07/26/2021 2:48 PM EDT Patient was just in office for visit with Dali Riec and med has been sent to her pharmacy. Ute Henry LPN documented in this encounterMansfield Hospital05-25-2022 History of Present illness Narrative* Dali Krystal, 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 ASSOCIATE.BULK PLANT AGENT - 07/26/2021 1:27 PM EDT CC: Patient [...] numbness, tingling, dizziness, syncope. Short term and residential memory intact PAST MEDICAL HISTORY Diagnosis Date Abdominal pain, right upper quadrant ADD (attention deficit disorder) Seeing psychiatry Anemia, unspecified Asthma Back pain chronic-Seeing Dr. Blankenship Bipolar affective disorder ([facility]) Chronic right shoulder pain Seeing Dr. Molina Closed dislocation of tarsometatarsal (joint) 01/18/2011 COPD (chronic obstructive pulmonary disease) ([facility]) Depressive disorder, not elsewhere classified 03/22/2005 Disorder of bone and cartilage, unspecified 02/09/2008 Distal radius fracture 01/05/2011 Dysuria Fibromyalgia GERD (gastroesophageal reflux disease) IBS (irritable bowel syndrome) Mitral regurgitation Severe Neck pain chronic-takes vicodin for this NSTEMI (non-ST elevated myocardial infarction) ([facility]) Seeing Dr. Hutton JD (obstructive sleep apnea) Other and unspecified hyperlipidemia Panic disorder without agoraphobia 03/22/2005 PMR (polymyalgia rheumatica) ([facility]) RA (rheumatoid arthritis) [facility] [facility] Unspecified essential hypertension 03/22/2005 PAST SURGICAL HISTORY [...] Problem Relation Age of Onset Heart Father [place] COPD Father other (Pulmonary fibrosis) Father COPD [...] plan. Dali Rice APRN.CNP documented in [facility] encounterM[facility] Miscellaneous Notes* Telephone Encounter - Ute [...] you. Ute Henry LPN documented in this encounterM[facility]05-[facility]22 Miscellaneous Notes* Telephone Encounter - Kellen [...] you. Ca Valenzuela RN documented in this encounterM[facility]field [facility]05-[facility]-2022 Miscellaneous Notes* Telephone Encounter - LOVE [...] and advise. LOVE Hi documented in this encounterM[facility]field [facility]05-[facility]-2022 Miscellaneous Notes* Telephone Encounter - Lilliana Pruitt LPN - 07/06/2021 11:02 AM EDT Pt called checking on status of rx. Pt asked to be called when sent to [facility] pharmacy. Lilliana Pruitt LPN * [...] you. Ute Henry LPN documented in this encounterMansfield Hospital05-03-2022 Miscellaneous Notes* Telephone Encounter - Danni [...] review. Danni Serrano MA documented in this encounterMansfield Hospital04-25-2022 History of Present illness Narrative* Dali Rice, 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 ASSOCIATE.B[employer]K PLANT AGENT - 06/26/2021 1:53 PM EDT CC: Patient [...] swelling, decrease in ROM, or redness. Take lyrica for this REVIEW OF SYSTEMS General: no [...] pain chronic-Seeing Dr. Blankenship Bipolar affective disorder ([facility]) Chronic right shoulder pain Seeing Dr. Molina Closed dislocation of tarsometatarsal (joint) 01/18/2011 COPD (chronic obstructive pulmonary disease) ([facility]) Depressive disorder, not elsewhere classified 03/22/2005 Disorder of bone and cartilage, unspecified 02/09/2008 Distal radius fracture 01/05/2011 Dysuria Fibromyalgia GERD (gastroesophageal reflux disease) IBS (irritable bowel syndrome) Mitral regurgitation Severe Neck pain chronic-takes vicodin for this NSTEMI (non-ST elevated myocardial infarction) ([facility]) Seeing Dr. Hutton JD (obstructive sleep apnea) Other and unspecified hyperlipidemia Panic disorder without agoraphobia 03/22/2005 PMR (polymyalgia rheumatica) ([facility]) RA (rheumatoid arthritis) ([facility]) Unspecified essential hypertension 03/22/2005 PAST SURGICAL HISTORY [...] Problem Relation Age of Onset Heart Father [place] COPD Father other (Pulmonary fibrosis) Father COPD [...] plan. Dali Rice APRN.MARIETTA documented in this encounterMansfield Hospital04-22-2022 Miscellaneous Notes* Telephone Encounter - Kayla Montez LPN - 06/23/2021 11:17 AM EDT Last office visit 08/23/2020 Patient phones requesting refills as follows: Pending Prescriptions Disp Refills COLESTIPOL 1 GRAM TABLET 60 tablet 2 Sig: Take 1 tablet by mouth twice daily. KAYLEIGH: No Please review and advise. Kayla Montez LPN documented in this encounterMansfield Hospital04-22-2022 Miscellaneous Notes* Telephone Encounter - Lilliana [...] you. Lilliana Pruitt LPN documented in this encounterMansfield Hospital04-20-2022 Miscellaneous Notes* Telephone Encounter - Kayla Montez LPN - 06/21/2021 8:28 AM EDT Levsin needs sent to mail away pharmacy. documented in this encounterMansfield Hospital03-28-2022 Miscellaneous Notes* Telephone Encounter - Leola Shelley LPN - 05/29/2021 4:12 PM EDT Our office did receive your refill request for Escitalopram (lexapro), however a new prescription was sent to [facility] on 04/28/2021 for 30 tablets, 5 refills. Please check with your pharmacy. Leola Shelley LPN documented in this encounterMansfield Hospital01-20-2022 History of Present illness Narrative* Kady Pablo, RT(R) - 03/23/2021 12:20 PM EST Radiology [...] PERIPHERAL IV DATA: Not applicable SIGNED BY: Kady Pablo RT(R) March 23, 2021 12:13 PM documented in this encounterMansfield Hospital11-10-2021 Miscellaneous Notes* Telephone Encounter - Joelle Pruitt LPN - 01/11/2021 9:10 AM EST Patient seen Urgent Care 01/10/21 awaiting Covid testing results, pending 01/11/21. Joelle Pruitt LPN documented in this encounterM[facility]field Hospital10-24-2016 History of Past illness Narrative* Problem Noted Date Resolved Date Chronic obstructive pulmonary disease 12/26/2015 03/15/2016 Coronary artery disease invo lving [place] coronary artery of [place] heart with angina pectoris 12/26/2015 06/07/2017 Atypical [...] of this encounter (statuses as of 05/29/2021) [facility] Narrative* Problem Noted Date Resolved Date Chronic obstructive pulmonary disease 12/26/2015 03/15/2016 Coronary artery disease invo lving [place] coronary artery of [place] heart with angina pectoris 12/26/2015 06/07/2017 Atypical [...] of this encounter (statuses as of 05/31/2021) [facility] Narrative* Problem Noted Date Resolved Date Chronic obstructive pulmonary disease 12/26/2015 03/15/2016 Coronary artery disease invo lving [place] coronary artery of [place] heart with angina pectoris 12/26/2015 06/07/2017 Atypical [...] of this encounter (statuses as of 06/21/2021) [facility] Narrative* Problem Noted Date Resolved Date Chronic obstructive pulmonary disease 12/26/2015 03/15/2016 Coronary artery disease invo lving [place] coronary artery of [place] heart with angina pectoris 12/26/2015 06/07/2017 Atypical [...] of this encounter (statuses as of 06/23/2021) [facility] Narrative* Problem Noted Date Resolved Date Chronic obstructive pulmonary disease 12/26/2015 03/15/2016 Coronary artery disease invo lving [place] coronary artery of [place] heart with angina pectoris 12/26/2015 06/07/2017 Atypical [...] of this encounter (statuses as of 06/26/2021) [facility]arrative* Problem Noted Date Resolved Date Chronic obstructive pulmonary disease 12/26/2015 03/15/2016 Coronary artery disease invo lving [place] coronary artery of [place] heart with angina pectoris 12/26/2015 06/07/2017 Atypical [...] of this encounter (statuses as of 07/04/2021) [facility] Narrative* Problem Noted Date Resolved Date Chronic obstructive pulmonary disease 12/26/2015 03/15/2016 Coronary artery disease invo lving [place] coronary artery of [place] heart with angina pectoris 12/26/2015 06/07/2017 Atypical [...] of this encounter (statuses as of 07/06/2021) [facility]arrative* Problem Noted Date Resolved Date Chronic obstructive pulmonary disease 12/26/2015 03/15/2016 Coronary artery disease invo lving [place] coronary artery of [place] heart with angina pectoris 12/26/2015 06/07/2017 Atypical [...] ramus intermediate. She has been transferred to [facility] due to moderate disease in the [...] of this encounter (statuses as of 07/07/2021) [facility] Narrative* Problem Noted Date Resolved Date Chronic obstructive pulmonary disease 12/26/2015 03/15/2016 Coronary artery disease invo [place]ving [place] coronary artery of [place] heart with angina pectoris 12/26/2015 06/07/2017 Atypical [...] of this encounter (statuses as of 07/10/2021) [facility] Narrative* Problem Noted Date Resolved Date Chronic obstructive pulmonary disease 12/26/2015 03/15/2016 Coronary artery disease invo lving [place] coronary artery of [place] heart with angina pectoris 12/26/2015 06/07/2017 Atypical [...] of this encounter (statuses as of 07/10/2021) [facility]arrative* Problem Noted Date Resolved Date Chronic obstructive pulmonary disease 12/26/2015 03/15/2016 Coronary artery disease invo lving [place] coronary artery of [place] heart with angina pectoris 12/26/2015 06/07/2017 Atypical [...] of this encounter (statuses as of 07/14/2021) [facility]* Problem Noted Date Resolved Date Chronic obstructive pulmonary disease 12/26/2015 03/15/2016 Coronary artery disease invo lving [place] coronary artery of [place] heart with angina pectoris 12/26/2015 06/07/2017 Atypical [...] of this encounter (statuses as of 07/26/2021) [facility]* Problem Noted Date Resolved Date Chronic obstructive pulmonary disease 12/26/2015 03/15/2016 Coronary artery disease invo [place]ving [place] coronary artery of [place] heart with angina pectoris 12/26/2015 06/07/2017 Atypical [...] of this encounter (statuses as of 07/26/2021) [facility]* Problem Noted Date Resolved Date Chronic obstructive pulmonary disease 12/26/2015 03/15/2016 Coronary artery disease invo lving [place] coronary artery of [place] heart with angina pectoris 12/26/2015 06/07/2017 Atypical [...] of this encounter (statuses as of 07/26/2021) [facility]* Problem Noted Date Resolved Date Chronic obstructive pulmonary disease 12/26/2015 03/15/2016 Coronary artery disease invo [place]ving [place] coronary artery of [place] heart with angina pectoris 12/26/2015 06/07/2017 Atypical [...] of this encounter (statuses as of 08/02/2021) [facility]* Problem Noted Date Resolved Date Chronic obstructive pulmonary disease 12/26/2015 03/15/2016 Coronary artery disease invo lving [place] coronary artery of [place] heart with angina pectoris 12/26/2015 06/07/2017 Atypical [...] of this encounter (statuses as of 08/08/2021) [facility]* Problem Noted Date Resolved Date Chronic obstructive pulmonary disease 12/26/2015 03/15/2016 Coronary artery disease invo lving [place] coronary artery of [place] heart with angina pectoris 12/26/2015 06/07/2017 Atypical [...] of this encounter (statuses as of 08/11/2021) [facility]* Problem Noted Date Resolved Date Chronic obstructive pulmonary disease 12/26/2015 03/15/2016 Coronary artery disease invo lving [place] coronary artery of [place] heart with angina pectoris 12/26/2015 06/07/2017 Atypical [...] of this encounter (statuses as of 08/14/2021) [facility]* Problem Noted Date Resolved Date Chronic obstructive pulmonary disease 12/26/2015 03/15/2016 Coronary artery disease invo lving [place] coronary artery of [place] heart with angina pectoris 12/26/2015 06/07/2017 Atypical [...] of this encounter (statuses as of 08/15/2021) [facility]* Problem Noted Date Resolved Date Chronic obstructive pulmonary disease 12/26/2015 03/15/2016 Coronary artery disease invo lving [place] coronary artery of [place] heart with angina pectoris 12/26/2015 06/07/2017 Atypical [...] of this encounter (statuses as of 08/16/2021) [facility]* Problem Noted Date Resolved Date Chronic obstructive pulmonary disease 12/26/2015 03/15/2016 Coronary artery disease invo lving [place] coronary artery of [place] heart with angina pectoris 12/26/2015 06/07/2017 Atypical [...] of this encounter (statuses as of 08/24/2021) [facility]* Problem Noted Date Resolved Date Chronic obstructive pulmonary disease 12/26/2015 03/15/2016 Coronary artery disease invo lving [place] coronary artery of [place] heart with angina pectoris 12/26/2015 06/07/2017 Atypical [...] of this encounter (statuses as of 08/31/2021) [facility]* Problem Noted Date Resolved Date Chronic obstructive pulmonary disease 12/26/2015 03/15/2016 Coronary artery disease invo lving [place] coronary artery of [place] heart with angina pectoris 12/26/2015 06/07/2017 Atypical [...] of this encounter (statuses as of 09/08/2021) [facility]* Problem Noted Date Resolved Date Chronic obstructive pulmonary disease 12/26/2015 03/15/2016 Coronary artery disease invo lving [place] coronary artery of [place] heart with angina pectoris 12/26/2015 06/07/2017 Atypical [...] of this encounter (statuses as of 09/11/2021) [facility]* Problem Noted Date Resolved Date Chronic obstructive pulmonary disease 12/26/2015 03/15/2016 Coronary artery disease invo lving [place] coronary artery of [place] heart with angina pectoris 12/26/2015 06/07/2017 Atypical [...] ramus intermediate. She has been transferred to [facility] due to moderate disease in the [...] of this encounter (statuses as of 10/05/2021) [facility]* Problem Noted Date Resolved Date Chronic obstructive pulmonary disease 12/26/2015 03/15/2016 Coronary artery disease invo lving [place] coronary artery of [place] heart with angina pectoris 12/26/2015 06/07/2017 Atypical [...] of this encounter (statuses as of 10/06/2021) [facility]* Problem Noted Date Resolved Date Chronic obstructive pulmonary disease 12/26/2015 03/15/2016 Coronary artery disease invo lving [place] coronary artery of [place] heart with angina pectoris 12/26/2015 06/07/2017 Atypical chest pain 12/26/2015 06/07/2017 Chronic right shoulder pain 07/14/2015 09/0 07/2016 SUMMARY 03/27/2015 10/25/2017 Overview: Leydaniraj Lopez is a 54 year old female [...] of this encounter (statuses as of 10/13/2021) [facility]* Problem Noted Date Resolved Date Chronic obstructive pulmonary disease 12/26/2015 03/15/2016 Coronary artery disease invo lving [place] coronary artery of [place] heart with angina pectoris 12/26/2015 06/07/2017 Atypical [...] of this encounter (statuses as of 10/13/2021) [facility]* Problem Noted Date Resolved Date Chronic obstructive pulmonary disease 12/26/2015 03/15/2016 Coronary artery disease invo lving [place] coronary artery of [place] heart with angina pectoris 12/26/2015 06/07/2017 Atypical [...] of this encounter (statuses as of 10/18/2021) [facility]* Problem Noted Date Resolved Date Chronic obstructive pulmonary disease 12/26/2015 03/15/2016 Coronary artery disease invo lving [place] coronary artery of [place] heart with angina pectoris 12/26/2015 06/07/2017 Atypical [...] of this encounter (statuses as of 10/20/2021) [facility]* Problem Noted Date Resolved Date Chronic obstructive pulmonary disease 12/26/2015 03/15/2016 Coronary artery disease invo lving [place] coronary artery of [place] heart with angina pectoris 12/26/2015 06/07/2017 Atypical [...] of this encounter (statuses as of 10/23/2021) [facility]* Problem Noted Date Resolved Date Chronic obstructive pulmonary disease 12/26/2015 03/15/2016 Coronary artery disease invo lving [place] coronary artery of [place] heart with angina pectoris 12/26/2015 06/07/2017 Atypical [...] of this encounter (statuses as of 11/01/2021) [facility]* Problem Noted Date Resolved Date Chronic obstructive pulmonary disease 12/26/2015 03/15/2016 Coronary artery disease invo lving [place] coronary artery of [place] heart with angina pectoris 12/26/2015 06/07/2017 Atypical [...] of this encounter (statuses as of 11/09/2021) [facility]* Problem Noted Date Resolved Date Chronic obstructive pulmonary disease 12/26/2015 03/15/2016 Coronary artery disease invo lving [place] coronary artery of [place] heart with angina pectoris 12/26/2015 06/07/2017 Atypical [...] of this encounter (statuses as of 11/10/2021) [facility]* Problem Noted Date Resolved Date Chronic obstructive pulmonary disease 12/26/2015 03/15/2016 Coronary artery disease invo lving [place] coronary artery of [place] heart with angina pectoris 12/26/2015 06/07/2017 Atypical [...] of this encounter (statuses as of 12/05/2021) [facility]* Problem Noted Date Resolved Date Chronic obstructive pulmonary disease 12/26/2015 03/15/2016 Coronary artery disease invo lving [place] coronary artery of [place] heart with angina pectoris 12/26/2015 06/07/2017 Atypical [...] of this encounter (statuses as of 12/04/2021) [facility]* Problem Noted Date Resolved Date Chronic obstructive pulmonary disease 12/26/2015 03/15/2016 Coronary artery disease invo lving [place] coronary artery of [place] heart with angina pectoris 12/26/2015 06/07/2017 Atypical [...] of this encounter (statuses as of 12/07/2021) [facility]* Problem Noted Date Resolved Date Chronic obstructive pulmonary disease 12/26/2015 03/15/2016 Coronary artery disease invo lving [place] coronary artery of [place] heart with angina pectoris 12/26/2015 06/07/2017 Atypical [...] of this encounter (statuses as of 12/15/2021) [facility]* Problem Noted Date Resolved Date Chronic obstructive pulmonary disease 12/26/2015 03/15/2016 Coronary artery disease invo lving [place] coronary artery of [place] heart with angina pectoris 12/26/2015 06/07/2017 Atypical chest pain 12/26/2015 06/07/2017 Chronic right shoulder pain 07/14/2015 09/0 07/2016 SUMMARY 03/27/2015 10/25/2017 Overview: Ledya Lopez is a 54 year old female [...] of this encounter (statuses as of 12/15/2021) [facility]* Problem Noted Date Resolved Date Chronic obstructive pulmonary disease 12/26/2015 03/15/2016 Coronary artery disease invo lving [place] coronary artery of [place] heart with angina pectoris 12/26/2015 06/07/2017 Atypical [...] ramus intermediate. She has been transferred to [facility] due to moderate disease in the [...] of this encounter (statuses as of 12/19/2021) [facility]* Problem Noted Date Resolved Date Chronic obstructive pulmonary disease 12/26/2015 03/15/2016 Coronary artery disease invo lving [place] coronary artery of [place] heart with angina pectoris 12/26/2015 06/07/2017 Atypical [...] of this encounter (statuses as of 12/19/2021) [facility] Problem Noted Date Resolved Date Chronic obstructive pulmonary disease 12/26/2015 03/15/2016 Coronary artery disease invo lving [place] coronary artery of [place] heart with angina pectoris 12/26/2015 06/07/2017 Atypical [...] of this encounter (statuses as of 12/21/2021) [facility]* Problem Noted Date Resolved Date Chronic obstructive pulmonary disease 12/26/2015 03/15/2016 Coronary artery disease invo lving [place] coronary artery of [place] heart with angina pectoris 12/26/2015 06/07/2017 Atypical [...] of this encounter (statuses as of 12/28/2021) [facility]* Problem Noted Date Resolved Date Chronic obstructive pulmonary disease 12/26/2015 03/15/2016 Coronary artery disease invo lving [place] coronary artery of [place] heart with angina pectoris 12/26/2015 06/07/2017 Atypical [...] of this encounter (statuses as of 01/03/2022) [facility]* Problem Noted Date Resolved Date Chronic obstructive pulmonary disease 12/26/2015 03/15/2016 Coronary artery disease invo lving [place] coronary artery of [place] heart with angina pectoris 12/26/2015 06/07/2017 Atypical [...] of this encounter (statuses as of 01/31/2022) [facility]* Problem Noted Date Resolved Date Chronic obstructive pulmonary disease 12/26/2015 03/15/2016 Coronary artery disease invo lving [place] coronary artery of [place] heart with angina pectoris 12/26/2015 06/07/2017 Atypical [...] of this encounter (statuses as of 01/31/2022) [facility]* Problem Noted Date Resolved Date Chronic obstructive pulmonary disease 12/26/2015 03/15/2016 Coronary artery disease invo lving [place] coronary artery of [place] heart with angina pectoris 12/26/2015 06/07/2017 Atypical [...] of this encounter (statuses as of 02/01/2022) [facility] Problem Noted Date Resolved Date Chronic obstructive pulmonary disease 12/26/2015 03/15/2016 Coronary artery disease invo lving [place] coronary artery of [place] heart with angina pectoris 12/26/2015 06/07/2017 Atypical [...] of this encounter (statuses as of 02/02/2022) [facility] Problem Noted Date Resolved Date Chronic obstructive pulmonary disease 12/26/2015 03/15/2016 Coronary artery disease invo lving [place] coronary artery of [place] heart with angina pectoris 12/26/2015 06/07/2017 Atypical [...] of this encounter (statuses as of 02/06/2022) [facility] Problem Noted Date Resolved Date Chronic obstructive pulmonary disease 12/26/2015 03/15/2016 Coronary artery disease invo lving [place] coronary artery of [place] heart with angina pectoris 12/26/2015 06/07/2017 Atypical [...] of this encounter (statuses as of 02/13/2022) [facility] Problem Noted Date Resolved Date Chronic obstructive pulmonary disease 12/26/2015 03/15/2016 Coronary artery disease invo lving [place] coronary artery of [place] heart with angina pectoris 12/26/2015 06/07/2017 Atypical [...] of this encounter (statuses as of 02/19/2022) [facility] Problem Noted Date Resolved Date Chronic obstructive pulmonary disease 12/26/2015 03/15/2016 Coronary artery disease invo lving [place] coronary artery of [place] heart with angina pectoris 12/26/2015 06/07/2017 Atypical [...] ramus intermediate. She has been transferred to [facility] due to moderate disease in the [...] of this encounter (statuses as of 02/23/2022) [facility] Problem Noted Date Resolved Date Chronic obstructive pulmonary disease 12/26/2015 03/15/2016 Coronary artery disease invo lving [place] coronary artery of [place] heart with angina pectoris 12/26/2015 06/07/2017 Atypical [...] of this encounter (statuses as of 03/08/2022) [facility] Problem Noted Date Resolved Date Chronic obstructive pulmonary disease 12/26/2015 03/15/2016 Coronary artery disease invo lving [place] coronary artery of [place] heart with angina pectoris 12/26/2015 06/07/2017 Atypical [...] of this encounter (statuses as of 03/13/2022) [facility]* Problem Noted Date Resolved Date Chronic obstructive pulmonary disease 12/26/2015 03/15/2016 Coronary artery disease invo lving [place] coronary artery of [place] heart with angina pectoris 12/26/2015 06/07/2017 Atypical [...] of this encounter (statuses as of 03/13/2022) [facility] Problem Noted Date Resolved Date Chronic obstructive pulmonary disease 12/26/2015 03/15/2016 Coronary artery disease invo lving [place] coronary artery of [place] heart with angina pectoris 12/26/2015 06/07/2017 Atypical [...] of this encounter (statuses as of 03/19/2022) [facility] History of Past illness Narrative* Problem Noted Date Resolved Date Chronic obstructive pulmonary disease 12/26/2015 03/15/2016 Coronary artery disease invo lving [place] coronary artery of [place] heart with angina pectoris 12/26/2015 06/07/2017 Atypical [...] ramus intermediate. She has been transferred to [facility] due to moderate disease in the [...] of this encounter (statuses as of 03/19/2022) [facility] History of Past illness Narrative* Problem Noted Date Resolved Date Chronic obstructive pulmonary disease 12/26/2015 03/15/2016 Coronary artery disease invo lving [place] coronary artery of [place] heart with angina pectoris 12/26/2015 06/07/2017 Atypical [...] of this encounter (statuses as of 03/29/2022) [facility] History of Past illness Narrative* Problem Noted Date Resolved Date Chronic obstructive pulmonary disease 12/26/2015 03/15/2016 Coronary artery disease invo lving [place] coronary artery of [place] heart with angina pectoris 12/26/2015 06/07/2017 Atypical [...] of this encounter (statuses as of 04/05/2022) [facility] History of Past illness Narrative* Problem Noted Date Resolved Date Chronic obstructive pulmonary disease 12/26/2015 03/15/2016 Coronary artery disease invo lving [place] coronary artery of [place] heart with angina pectoris 12/26/2015 06/07/2017 Atypical [...] of this encounter (statuses as of 04/06/2022) [facility] History of Past illness Narrative* Problem Noted Date Resolved Date Chronic obstructive pulmonary disease 12/26/2015 03/15/2016 Coronary artery disease invo [place]ving [place] coronary artery of [place] heart with angina pectoris 12/26/2015 06/07/2017 Atypical chest pain 12/26/2015 06/07/2017 Chronic right shoulder pain 07/14/2015 09/0 07/2016 SUMMARY 03/27/2015 10/25/2017 Overview: Leyda Lopze is a 54 year old female with [...] of this encounter (statuses as of 04/19/2022) [facility] History of Past illness Narrative* Problem Noted Date Resolved Date Chronic obstructive pulmonary disease 12/26/2015 03/15/2016 Coronary artery disease invo [place]ving [place] coronary artery of [place] heart with angina pectoris 12/26/2015 06/07/2017 Atypical [...] of this encounter (statuses as of 04/25/2022) [facility] History of Past illness Narrative* Problem Noted Date Resolved Date Chronic obstructive pulmonary disease 12/26/2015 03/15/2016 Coronary artery disease invo lving [place] coronary artery of [place] heart with angina pectoris 12/26/2015 06/07/2017 Atypical [...] of this encounter (statuses as of 04/27/2022) [facility] History of Past illness Narrative* Problem Noted Date Resolved Date Chronic obstructive pulmonary disease 12/26/2015 03/15/2016 Coronary artery disease invo [place]ving [place] coronary artery of [place] heart with angina pectoris 12/26/2015 06/07/2017 Atypical [...] of this encounter (statuses as of 05/03/2022) [facility] History of Past illness Narrative* Problem Noted Date Resolved Date Chronic obstructive pulmonary disease 12/26/2015 03/15/2016 Coronary artery disease invo [place]ving [place] coronary artery of [place] heart with angina pectoris 12/26/2015 06/07/2017 Atypical [...] ramus intermediate. She has been transferred to [facility] due to moderate disease in the [...] of this encounter (statuses as of 05/12/2022) [facility] History of Past illness Narrative* Problem Noted Date Resolved Date Chronic obstructive pulmonary disease 12/26/2015 03/15/2016 Coronary artery disease invo [place]ving [place] coronary artery of [place] heart with angina pectoris 12/26/2015 06/07/2017 Atypical [...] of this encounter (statuses as of 05/27/2022) [facility] History of Past illness Narrative* Problem Noted Date Resolved Date Chronic obstructive pulmonary disease 12/26/2015 03/15/2016 Coronary artery disease invo lving [place] coronary artery of [place] heart with angina pectoris 12/26/2015 06/07/2017 Atypical [...] of this encounter (statuses as of 05/28/2022) [facility] History of Past illness Narrative* Problem Noted Date Resolved Date Chronic obstructive pulmonary disease 12/26/2015 03/15/2016 Coronary artery disease invo lving [place] coronary artery of [place] heart with angina pectoris 12/26/2015 06/07/2017 Atypical [...] of this encounter (statuses as of 05/29/2022) [facility] History of Past illness Narrative* Problem Noted Date Resolved Date Chronic obstructive pulmonary disease 12/26/2015 03/15/2016 Coronary artery disease invo [place]ving [place] coronary artery of [place] heart with angina pectoris 12/26/2015 06/07/2017 Atypical chest pain 12/26/2015 06/07/2017 Chronic right shoulder pain 07/14/2015 090 07/2016 SUMMARY 03/27/2015 10/25/2017 Overview: Leyda Lopez [...] of this encounter (statuses as of 05/30/2022) [facility] History of Past illness Narrative* Problem Noted Date Resolved Date Chronic obstructive pulmonary disease 12/26/2015 03/15/2016 Coronary artery disease invo [place]ving [place] coronary artery of [place] heart with angina pectoris 12/26/2015 06/07/2017 Atypical [...] of this encounter (statuses as of 06/04/2022) [facility] History of Past illness Narrative* Problem Noted Date Resolved Date Chronic obstructive pulmonary disease 12/26/2015 03/15/2016 Coronary artery disease invo lving [place] coronary artery of [place] heart with angina pectoris 12/26/2015 06/07/2017 Atypical [...] of this encounter (statuses as of 06/13/2022) [facility] History of Past illness Narrative* Problem Noted Date Resolved Date Chronic obstructive pulmonary disease 12/26/2015 03/15/2016 Coronary artery disease invo lving [place] coronary artery of [place] heart with angina pectoris 12/26/2015 06/07/2017 Atypical [...] of this encounter (statuses as of 06/14/2022) [facility] History of Past illness Narrative* Problem Noted Date Resolved Date Chronic obstructive pulmonary disease 12/26/2015 03/15/2016 Coronary artery disease invo lving [place] coronary artery of [place] heart with angina pectoris 12/26/2015 06/07/2017 Atypical [...] of this encounter (statuses as of 06/22/2022) [facility] History of Past illness Narrative* Problem Noted Date Resolved Date Chronic obstructive pulmonary disease 12/26/2015 03/15/2016 Coronary artery disease invo lving [place] coronary artery of [place] heart with angina pectoris 12/26/2015 06/07/2017 Atypical [...] of this encounter (statuses as of 06/26/2022) [facility] History of Past illness Narrative* Problem Noted Date Resolved Date Chronic obstructive pulmonary disease 12/26/2015 03/15/2016 Coronary artery disease invo lving [place] coronary artery of [place] heart with angina pectoris 12/26/2015 06/07/2017 Atypical [...] of this encounter (statuses as of 06/27/2022) [facility] History of Past illness Narrative* Problem Noted Date Resolved Date Chronic obstructive pulmonary disease 12/26/2015 03/15/2016 Coronary artery disease invo [place]ving [place] coronary artery of [place] heart with angina pectoris 12/26/2015 06/07/2017 Atypical [...] of this encounter (statuses as of 06/28/2022) [facility] History of Past illness Narrative* Problem Noted Date Resolved Date Chronic obstructive pulmonary disease 12/26/2015 03/15/2016 Coronary artery disease invo [place]ving [place] coronary artery of [place] heart with angina pectoris 12/26/2015 06/07/2017 Atypical [...] of this encounter (statuses as of 06/29/2022) [facility] History of Past illness Narrative* Problem Noted Date Resolved Date Chronic obstructive pulmonary disease 12/26/2015 03/15/2016 Coronary artery disease invo [place]ving [place] coronary artery of [place] heart with angina pectoris 12/26/2015 06/07/2017 Atypical [...] of this encounter (statuses as of 06/29/2022) [facility] History of Past illness Narrative* Problem Noted Date Resolved Date Chronic obstructive pulmonary disease 12/26/2015 03/15/2016 Coronary artery disease invo [place]ving [place] coronary artery of [place] heart with angina pectoris 12/26/2015 06/07/2017 Atypical [...] of this encounter (statuses as of 07/31/2022) [facility] History of Past illness Narrative* Problem Noted Date Resolved Date Chronic obstructive pulmonary disease 12/26/2015 03/15/2016 Coronary artery disease invo [place]ving [place] coronary artery of [place] heart with angina pectoris 12/26/2015 06/07/2017 Atypical [...] of this encounter (statuses as of 08/30/2022) [facility] History of Past illness Narrative* Problem Noted Date Diagnosed Date Resolved Date Chronic obstructive pulmonary disease 12/26/2015 03/15/2016 Coronary artery disease invo [place]ving [place] coronary artery of [place] heart with angina pectoris 12/26/2015 06/07/2017 Atypical [...] of this encounter (statuses as of 09/20/2022) [facility] History of Past illness Narrative* Problem Noted Date Diagnosed Date Resolved Date Chronic obstructive pulmonary disease 12/26/2015 03/15/2016 Coronary artery disease invo [place]ving [place] coronary artery of [place] heart with angina pectoris 12/26/2015 06/07/2017 Atypical [...] of this encounter (statuses as of 09/21/2022) [facility] History of Past illness Narrative* Problem Noted Date Diagnosed Date Resolved Date Chronic obstructive pulmonary disease 12/26/2015 03/15/2016 Coronary artery disease invo [place]ving [place] coronary artery of [place] heart with angina pectoris 12/26/2015 06/07/2017 Atypical [...] of this encounter (statuses as of 09/27/2022) [facility] History of Past illness Narrative* Problem Noted Date Diagnosed Date Resolved Date Chronic obstructive pulmonary disease 12/26/2015 03/15/2016 Coronary artery disease invo lving [place] coronary artery of [place] heart with angina pectoris 12/26/2015 06/07/2017 Atypical [...] of this encounter (statuses as of 09/28/2022) [facility] History of Past illness Narrative* Problem Noted Date Diagnosed Date Resolved Date Chronic obstructive pulmonary disease 12/26/2015 03/15/2016 Coronary artery disease invo lving [place] coronary artery of [place] heart with angina pectoris 12/26/2015 06/07/2017 Atypical [...] of this encounter (statuses as of 10/01/2022) [facility] History of Past illness Narrative* Problem Noted Date Diagnosed Date Resolved Date Chronic obstructive pulmonary disease 12/26/2015 03/15/2016 Coronary artery disease invo lving [place] coronary artery of [place] heart with angina pectoris 12/26/2015 06/07/2017 Atypical [...] of this encounter (statuses as of 10/01/2022) [facility] History of Past illness Narrative* Problem Noted Date Diagnosed Date Resolved Date Chronic obstructive pulmonary disease 12/26/2015 03/15/2016 Coronary artery disease invo lving [place] coronary artery of [place] heart with angina pectoris 12/26/2015 06/07/2017 Atypical [...] of this encounter (statuses as of 10/03/2022) [facility] History of Past illness Narrative* Problem Noted Date Diagnosed Date Resolved Date Chronic obstructive pulmonary disease 12/26/2015 03/15/2016 Coronary artery disease invo lving [place] coronary artery of [place] heart with angina pectoris 12/26/2015 06/07/2017 Atypical [...] of this encounter (statuses as of 10/05/2022) [facility] History of Past illness Narrative* Problem Noted Date Diagnosed Date Resolved Date Chronic obstructive pulmonary disease 12/26/2015 03/15/2016 Coronary artery disease invo lving [place] coronary artery of [place] heart with angina pectoris 12/26/2015 06/07/2017 Atypical [...] of this encounter (statuses as of 10/06/2022) [facility] History of Past illness Narrative* Problem Noted Date Diagnosed Date Resolved Date Chronic obstructive pulmonary disease 12/26/2015 03/15/2016 Coronary artery disease invo lving [place] coronary artery of [place] heart with angina pectoris 12/26/2015 06/07/2017 Atypical [...] of this encounter (statuses as of 10/08/2022) [facility] History of Past illness Narrative* Problem Noted Date Diagnosed Date Resolved Date Chronic obstructive pulmonary disease 12/26/2015 03/15/2016 Coronary artery disease invo lving [place] coronary artery of [place] heart with angina pectoris 12/26/2015 06/07/2017 Atypical [...] of this encounter (statuses as of 10/08/2022) [facility] History of Past illness Narrative* Problem Noted Date Diagnosed Date Resolved Date Chronic obstructive pulmonary disease 12/26/2015 03/15/2016 Coronary artery disease invo lving [place] coronary artery of [place] heart with angina pectoris 12/26/2015 06/07/2017 Atypical [...] of this encounter (statuses as of 10/10/2022) [facility] History of Past illness Narrative* Problem Noted Date Diagnosed Date Resolved Date Chronic obstructive pulmonary disease 12/26/2015 03/15/2016 Coronary artery disease invo lving [place] coronary artery of [place] heart with angina pectoris 12/26/2015 06/07/2017 Atypical [...] of this encounter (statuses as of 10/15/2022) [facility] History of Past illness Narrative* Problem Noted Date Diagnosed Date Resolved Date Chronic obstructive pulmonary disease 12/26/2015 03/15/2016 Coronary artery disease invo lving [place] coronary artery of [place] heart with angina pectoris 12/26/2015 06/07/2017 Atypical [...] of this encounter (statuses as of 10/24/2022) [facility] History of Past illness Narrative* Problem Noted Date Diagnosed Date Resolved Date Chronic obstructive pulmonary disease 12/26/2015 03/15/2016 Coronary artery disease invo lving [place] coronary artery of [place] heart with angina pectoris 12/26/2015 06/07/2017 Atypical [...] of this encounter (statuses as of 10/25/2022) [facility] History of Past illness Narrative* Problem Noted Date Diagnosed Date Resolved Date Chronic obstructive pulmonary disease 12/26/2015 03/15/2016 Coronary artery disease invo lving [place] coronary artery of [place] heart with angina pectoris 12/26/2015 06/07/2017 Atypical [...] of this encounter (statuses as of 10/31/2022) [facility] History of Past illness Narrative* Problem Noted Date Diagnosed Date Resolved Date Chronic obstructive pulmonary disease 12/26/2015 03/15/2016 Coronary artery disease invo lving [place] coronary artery of [place] heart with angina pectoris 12/26/2015 06/07/2017 Atypical [...] of this encounter (statuses as of 11/01/2022) [facility] History of Past illness Narrative* Problem Noted Date Diagnosed Date Resolved Date Chronic obstructive pulmonary disease 12/26/2015 03/15/2016 Coronary artery disease invo lving [place] coronary artery of [place] heart with angina pectoris 12/26/2015 06/07/2017 Atypical [...] of this encounter (statuses as of 11/06/2022) [facility] History of Past illness Narrative* Problem Noted Date Diagnosed Date Resolved Date Chronic obstructive pulmonary disease 12/26/2015 03/15/2016 Coronary artery disease invo lving [place] coronary artery of [place] heart with angina pectoris 12/26/2015 06/07/2017 Atypical [...] of this encounter (statuses as of 11/12/2022) [facility] History of Past illness Narrative* Problem Noted Date Diagnosed Date Resolved Date Chronic obstructive pulmonary disease 12/26/2015 03/15/2016 Coronary artery disease invo lving [place] coronary artery of [place] heart with angina pectoris 12/26/2015 06/07/2017 Atypical [...] of this encounter (statuses as of 11/13/2022) [facility] History of Past illness Narrative* Problem Noted Date Diagnosed Date Resolved Date Chronic obstructive pulmonary disease 12/26/2015 03/15/2016 Coronary artery disease invo lving [place] coronary artery of [place] heart with angina pectoris 12/26/2015 06/07/2017 Atypical [...] of this encounter (statuses as of 11/14/2022) [facility] History of Past illness Narrative* Problem Noted Date Diagnosed Date Resolved Date Chronic obstructive pulmonary disease 12/26/2015 03/15/2016 Coronary artery disease invo lving [place] coronary artery of [place] heart with angina pectoris 12/26/2015 06/07/2017 Atypical [...] of this encounter (statuses as of 11/16/2022) [facility] History of Past illness Narrative* Problem Noted Date Diagnosed Date Resolved Date Chronic obstructive pulmonary disease 12/26/2015 03/15/2016 Coronary artery disease invo lving [place] coronary artery of [place] heart with angina pectoris 12/26/2015 06/07/2017 Atypical [...] of this encounter (statuses as of 11/19/2022) [facility] History of Past illness Narrative* Problem Noted Date Diagnosed Date Resolved Date Chronic obstructive pulmonary disease 12/26/2015 03/15/2016 Coronary artery disease invo lving [place] coronary artery of [place] heart with angina pectoris 12/26/2015 06/07/2017 Atypical [...] of this encounter (statuses as of 11/19/2022) [facility] History of Past illness Narrative* Problem Noted Date Diagnosed Date Resolved Date Chronic obstructive pulmonary disease 12/26/2015 03/15/2016 Coronary artery disease invo lving [place] coronary artery of [place] heart with angina pectoris 12/26/2015 06/07/2017 Atypical [...] of this encounter (statuses as of 11/20/2022) [facility] History of Past illness Narrative* Problem Noted Date Diagnosed Date Resolved Date Chronic obstructive pulmonary disease 12/26/2015 03/15/2016 Coronary artery disease invo lving [place] coronary artery of [place] heart with angina pectoris 12/26/2015 06/07/2017 Atypical [...] of this encounter (statuses as of 11/21/2022) [facility] History of Past illness Narrative* Problem Noted Date Diagnosed Date Resolved Date Chronic obstructive pulmonary disease 12/26/2015 03/15/2016 Coronary artery disease invo lving [place] coronary artery of [place] heart with angina pectoris 12/26/2015 06/07/2017 Atypical [...] of this encounter (statuses as of 12/04/2022) [facility] History of Past illness Narrative* Problem Noted Date Diagnosed Date Resolved Date Chronic obstructive pulmonary disease 12/26/2015 03/15/2016 Coronary artery disease invo lving [place] coronary artery of [place] heart with angina pectoris 12/26/2015 06/07/2017 Atypical [...] of this encounter (statuses as of 12/11/2022) [facility] History of Past illness Narrative* Problem Noted Date Diagnosed Date Resolved Date Chronic obstructive pulmonary disease 12/26/2015 03/15/2016 Coronary artery disease invo lving [place] coronary artery of [place] heart with angina pectoris 12/26/2015 06/07/2017 Atypical [...] of this encounter (statuses as of 12/12/2022) [facility] History of Past illness Narrative* Problem Noted Date Diagnosed Date Resolved Date Chronic obstructive pulmonary disease 12/26/2015 03/15/2016 Coronary artery disease invo lving [place] coronary artery of [place] heart with angina pectoris 12/26/2015 06/07/2017 Atypical [...] of this encounter (statuses as of 12/28/2022) [facility] History of Past illness Narrative* Problem Noted Date Diagnosed Date Resolved Date Chronic obstructive pulmonary disease 12/26/2015 03/15/2016 Coronary artery disease invo lving [place] coronary artery of [place] heart with angina pectoris 12/26/2015 06/07/2017 Atypical [...] of this encounter (statuses as of 01/06/2023) [facility] History of Past illness Narrative* Problem Noted Date Diagnosed Date Resolved Date Chronic obstructive pulmonary disease 12/26/2015 03/15/2016 Coronary artery disease invo lving [place] coronary artery of [place] heart with angina pectoris 12/26/2015 06/07/2017 Atypical [...] of this encounter (statuses as of 01/06/2023) [facility] History of Past illness Narrative* Problem Noted Date Diagnosed Date Resolved Date Chronic obstructive pulmonary disease 12/26/2015 03/15/2016 Coronary artery disease invo lving [place] coronary artery of [place] heart with angina pectoris 12/26/2015 06/07/2017 Atypical [...] of this encounter (statuses as of 01/06/2023) [facility] History of Past illness Narrative* Problem Noted Date Diagnosed Date Resolved Date Chronic obstructive pulmonary disease 12/26/2015 03/15/2016 Coronary artery disease invo lving [place] coronary artery of [place] heart with angina pectoris 12/26/2015 06/07/2017 Atypical [...] of this encounter (statuses as of 01/11/2023) [facility] History of Past illness Narrative* Problem Noted Date Diagnosed Date Resolved Date Chronic obstructive pulmonary disease 12/26/2015 03/15/2016 Coronary artery disease invo lving [place] coronary artery of [place] heart with angina pectoris 12/26/2015 06/07/2017 Atypical [...] of this encounter (statuses as of 01/21/2023) [facility] History of Past illness Narrative* Problem Noted Date Diagnosed Date Resolved Date Chronic obstructive pulmonary disease 12/26/2015 03/15/2016 Coronary artery disease invo lving [place] coronary artery of [place] heart with angina pectoris 12/26/2015 06/07/2017 Atypical [...] of this encounter (statuses as of 01/22/2023) [facility] History of Past illness Narrative* Problem Noted Date Diagnosed Date Resolved Date Chronic obstructive pulmonary disease 12/26/2015 03/15/2016 Coronary artery disease invo lving [place] coronary artery of [place] heart with angina pectoris 12/26/2015 06/07/2017 Atypical [...] ramus intermediate. She has been transferred to [facility] due to moderate disease in the [...] of this encounter (statuses as of 01/23/2023) [facility] History of Past illness Narrative* Problem Noted Date Diagnosed Date Resolved Date Chronic obstructive pulmonary disease 12/26/2015 03/15/2016 Coronary artery disease invo lving [place] coronary artery of [place] heart with angina pectoris 12/26/2015 06/07/2017 Atypical [...] of this encounter (statuses as of 01/25/2023) [facility] History of Past illness Narrative* Problem Noted Date Diagnosed Date Resolved Date Chronic obstructive pulmonary disease 12/26/2015 03/15/2016 Coronary artery disease invo lving [place] coronary artery of [place] heart with angina pectoris 12/26/2015 06/07/2017 Atypical [...] of this encounter (statuses as of 01/28/2023) [facility] History of Past illness Narrative* Problem Noted Date Diagnosed Date Resolved Date Chronic obstructive pulmonary disease 12/26/2015 03/15/2016 Coronary artery disease invo lving [place] coronary artery of [place] heart with angina pectoris 12/26/2015 06/07/2017 Atypical [...] of this encounter (statuses as of 02/07/2023) [facility] of Past illness Narrative* Problem Noted Date Diagnosed Date Resolved Date Chronic obstructive pulmonary disease 12/26/2015 03/15/2016 Coronary artery disease invo lving [place] coronary artery of [place] heart with angina pectoris 12/26/2015 06/07/2017 Atypical [...] of this encounter (statuses as of 04/15/2023) [facility] of Past illness Narrative* Problem Noted Date Diagnosed Date Resolved Date Chronic obstructive pulmonary disease 12/26/2015 03/15/2016 Coronary artery disease invo lving [place] coronary artery of [place] heart with angina pectoris 12/26/2015 06/07/2017 Atypical [...] ramus intermediate. She has been transferred to [facility] due to moderate disease in the [...] of this encounter (statuses as of 04/15/2023) [facility] History of Past illness Narrative* Problem Noted Date Diagnosed Date Resolved Date Chronic obstructive pulmonary disease 12/26/2015 03/15/2016 Coronary artery disease invo lving [place] coronary artery of [place] heart with angina pectoris 12/26/2015 06/07/2017 Atypical [...] of this encounter (statuses as of 04/15/2023) [facility] History of Past illness Narrative* Problem Noted Date Diagnosed Date Resolved Date Chronic obstructive pulmonary disease 12/26/2015 03/15/2016 Coronary artery disease invo lving [place] coronary artery of [place] heart with angina pectoris 12/26/2015 06/07/2017 Atypical [...] of this encounter (statuses as of 05/03/2023) [facility] History of Past illness Narrative* Problem Noted Date Diagnosed Date Resolved Date Chronic obstructive pulmonary disease 12/26/2015 03/15/2016 Coronary artery disease invo lving [place] coronary artery of [place] heart with angina pectoris 12/26/2015 06/07/2017 Atypical [...] of this encounter (statuses as of 05/03/2023) [facility] History of Past illness Narrative* Problem Noted Date Diagnosed Date Resolved Date Chronic obstructive pulmonary disease 12/26/2015 03/15/2016 Coronary artery disease invo lving [place] coronary artery of [place] heart with angina pectoris 12/26/2015 06/07/2017 Atypical [...] of this encounter (statuses as of 05/09/2023) [facility] History of Past illness Narrative* Problem Noted Date Diagnosed Date Resolved Date Chronic obstructive pulmonary disease 12/26/2015 03/15/2016 Coronary artery disease invo lving [place] coronary artery of [place] heart with angina pectoris 12/26/2015 06/07/2017 Atypical [...] of this encounter (statuses as of 05/10/2023) [facility] History of Past illness Narrative* Problem Noted Date Diagnosed Date Resolved Date Chronic obstructive pulmonary disease 12/26/2015 03/15/2016 Coronary artery disease invo lving [place] coronary artery of [place] heart with angina pectoris 12/26/2015 06/07/2017 Atypical [...] of this encounter (statuses as of 05/10/2023) [facility] History of Past illness Narrative* Problem Noted Date Diagnosed Date Resolved Date Chronic obstructive pulmonary disease 12/26/2015 03/15/2016 Coronary artery disease invo lving [place] coronary artery of [place] heart with angina pectoris 12/26/2015 06/07/2017 Atypical [...] of this encounter (statuses as of 05/17/2023) [facility] History of Past illness Narrative* Problem Noted Date Diagnosed Date Resolved Date Chronic obstructive pulmonary disease 12/26/2015 03/15/2016 Coronary artery disease invo lving [place] coronary artery of [place] heart with angina pectoris 12/26/2015 06/07/2017 Atypical [...] of this encounter (statuses as of 05/24/2023) [facility] History of Past illness Narrative* Problem Noted Date Diagnosed Date Resolved Date Chronic obstructive pulmonary disease 12/26/2015 03/15/2016 Coronary artery disease invo lving [place] coronary artery of [place] heart with angina pectoris 12/26/2015 06/07/2017 Atypical [...] of this encounter (statuses as of 06/10/2023) [facility] History of Past illness Narrative* Problem Noted Date Diagnosed Date Resolved Date Chronic obstructive pulmonary disease 12/26/2015 03/15/2016 Coronary artery disease invo lving [place] coronary artery of [place] heart with angina pectoris 12/26/2015 06/07/2017 Atypical [...] of this encounter (statuses as of 06/13/2023) [facility] Diagnosis Moderate episode of recurrent major depressive disorder (HCC) Anxiety Anxiety state, unspecified [facility] Diagnosis Fibromyalgia Mylagia and myositis, unspecified [facility] Diagnosis Essential hypertension- Primary Unspecified essential hypertension Poor short term memory Memory loss Chronic pain of multiple joints Pain in joint, multiple sites [facility] Diagnosis Fibromyalgia Mylagia and myositis, unspecified [facility] Mixed hyperlipidemia Essential hypertension Unspecified essential hypertension [facility] Diagnosis Essential hypertension Unspecified essential hypertension [facility] Diagnosis Essential hypertension- Primary Unspecified essential hypertension Fibromyalgia Mylagia and myositis, unspecified Chronic pain of multiple joints Pain in joint, multiple sites Poor short term memory Memory loss [facility] Diagnosis Screening cholesterol level- Primary Screening for lipoid disorders [facility] Diagnosis Fibromyalgia Mylagia and myositis, unspecified [facility] Diagnosis Allergic rhinitis, unspecified seasonality, unspecified trigger [facility] Diagnosis Moderate episode of recurrent major depressive disorder (HCC) Anxiety Anxiety state, unspecified [facility] Diagnosis Moderate episode of recurrent major depressive disorder (HCC) Anxiety Anxiety state, unspecified [facility] Diagnosis Mixed hyperlipidemia [facility] Diagnosis Encounter for screening mammogram for breast cancer [facility] Diagnosis Screening cholesterol level Screening for lipoid disorders documented in this encounter [facility] note* Diagnosis Treatment not available- Primary Procedure not carried out for other reasons documented in this encounter [facility] note* Diagnosis Insomnia, unspecified type documented in this encounter [facility] note* Diagnosis Insomnia, unspecified type documented in this encounter [facility] note* Diagnosis Essential hypertension Unspecified essential hypertension documented in this encounter [facility] note* Diagnosis Essential hypertension Unspecified essential hypertension documented in this encounter [facility] note* Diagnosis Essential hypertension Unspecified essential hypertension documented in this encounter [facility] note* Diagnosis Essential hypertension- Primary Unspecified [...] malignant neoplasms, colon documented in this encounter [facility] note* Diagnosis Diarrhea, unspecified type- Primary Right upper quadrant abdominal tenderness without rebound tenderness Heartburn Nausea Nausea alone documented in this encounter [facility] note* Diagnosis Elevated lipase- Primary Other nonspecific abnormal serum enzyme levels Elevated amylase Other nonspecific abnormal serum enzyme levels RUQ pain Abdominal pain, right upper quadrant Nausea Nausea alone Chronic diarrhea Diarrhea Tendinitis of thumb Other tenosynovitis of hand and wrist documented in this encounter [facility] note* Diagnosis Screening cholesterol level Screening for lipoid disorders documented in this encounter [facility] note* Diagnosis Pain syndrome, chronic- Primary Chronic pain syndrome Chronic obstructive pulmonary disease, unspecified COPD type (HCC) Gait abnormality Abnormality of gait documented in this encounter [facility] note* Diagnosis Fibromyalgia Mylagia and myositis, unspecified documented in this encounter [facility] note* Diagnosis Allergic rhinitis, unspecified seasonality, unspecified trigger [facility] Diagnosis Tendinitis of thumb Other tenosynovitis of hand and wrist documented in this encounter [facility] note* Diagnosis Screening cholesterol level Screening for lipoid disorders [facility]* Diagnosis Hyperlipidemia Other and unspecified hyperlipidemia documented in this encounter [facility] note* Diagnosis Tendinitis of thumb Other tenosynovitis of hand and wrist [facility]* Diagnosis Tendinitis of thumb Other tenosynovitis of hand and wrist documented in this encounter [facility] note* Diagnosis Acute on chronic diastolic congestive heart failure (HCC)- Primary Acute on chronic diastolic heart failure Stage 3 chronic kidney disease, unspecified whether stage 3a or 3b CKD (HCC) Centrilobular emphysema (HCC) Other emphysema [facility] Diagnosis Hyperlipidemia Other and unspecified hyperlipidemia [facility]* Diagnosis Mixed hyperlipidemia [facility]* Diagnosis Essential hypertension- Primary Unspecified essential [...] Moderate episode of recurrent major depressive disorder ([facility]) Dizziness Dizziness and giddiness Light sensitivity Acute dermatitis due to solar radiation [facility]* Diagnosis Mixed hyperlipidemia documented in this encounter [facility] noteNo assessment information availableWWayne [facility] Work Phone: Evaluation note* Diagnosis Essential hypertension Unspecified essential hypertension documented in this encounter [facility] note* Diagnosis Encounter for screening for osteoporosis Special screening for osteoporosis Asymptomatic postmenopausal status documented in this encounter [facility] note* Diagnosis Elevated lipase Other nonspecific abnormal serum enzyme levels Elevated amylase Other nonspecific abnormal serum enzyme levels RUQ pain Abdominal pain, right upper quadrant Nausea Nausea alone Chronic diarrhea Diarrhea documented in this encounter [facility] note* Diagnosis Fibromyalgia Mylagia and myositis, unspecified documented in this encounter [facility] note* Diagnosis Hyperlipidemia Other and unspecified hyperlipidemia CKD (chronic kidney disease) stage 3, GFR 30-59 ml/min (HCC) Chronic kidney disease, Stage III (moderate) [facility]* Diagnosis Essential hypertension Unspecified essential hypertension documented in this encounter [facility] note* Diagnosis Nausea Nausea alone [facility]* Diagnosis Nausea Nausea alone [facility]* Diagnosis Moderate episode of recurrent major depressive disorder (HCC)- Primary Anxiety Anxiety state, unspecified Essential hypertension Unspecified essential hypertension documented in this encounter [facility] note* Diagnosis Mixed hyperlipidemia documented in this encounter [facility] note* Diagnosis Osteoporosis, post menopausal- Primary Encounter for long-term (current) use of medications Encounter for long-term (current) use of other medications documented in this encounter [facility] note* Diagnosis Allergic rhinitis, unspecified seasonality, unspecified trigger documented in this encounter [facility] note* Diagnosis Onset Date Resolution Status Acute hypokalemia acute Community acquired pneumonia acute Hypoxia acute RSV infection acute [facility] Work Phone: Evaluation note* Diagnosis Onset Date Resolution Status Acute hypokalemia acute Community acquired pneumonia acute Hypoxia acute RSV infection acute COPD (chronic obstructive pulmonary disease) chronic [facility] Work Phone: Evaluation note* Diagnosis Mixed hyperlipidemia [facility] Diagnosis Onset Date Resolution Status Hypoxia acute Acute hypokalemia resolved Community acquired pneumonia resolved RSV infection resolved Pneumonia acute Acute and chronic respiratory failure with hypoxia chronic COPD (chronic obstructive pulmonary disease) chronic HTN (hypertension) [facility] Work Phone: Evaluation note* Diagnosis Community acquired pneumonia, unspecified laterality- Primary Acute on chronic respiratory failure with hypoxia (HCC) Stage 3 chronic kidney disease, unspecified whether stage 3a or 3b CKD ([facility]) Centrilobular emphysema (HCC) Other emphysema Acute on chronic diastolic congestive heart failure (HCC) Acute on chronic diastolic heart failure Essential hypertension Unspecified essential hypertension [facility]* Diagnosis Fibromyalgia Mylagia and myositis, unspecified [facility]* Diagnosis Asthma with chronic obstructive pulmonary disease (COPD) (HCC)- Primary Chronic obstructive asthma, unspecified Community acquired pneumonia of right lower lobe of lung Chronic hypoxemic respiratory failure (HCC) Chronic respiratory failure Former cigarette smoker Personal history of tobacco use, presenting hazards to health [facility]* Diagnosis Essential hypertension Unspecified essential hypertension Mixed hyperlipidemia [facility] Diagnosis Moderate episode of recurrent major depressive disorder (HCC) Anxiety Anxiety state, unspecified [facility] Diagnosis Fibromyalgia Mylagia and myositis, unspecified [facility] Diagnosis Essential hypertension Unspecified essential hypertension [facility] Diagnosis Encounter for screening mammogram for breast cancer [facility] Diagnosis Primary osteoarthritis of first carpometacarpal joint of right hand- Primary Primary localized osteoarthrosis, hand [facility] Diagnosis Pain Generalized pain [facility] Diagnosis Primary osteoarthritis of first carpometacarpal joint of right hand- Primary Primary localized osteoarthrosis, hand Primary osteoarthritis of first carpometacarpal joint of right hand Primary localized osteoarthrosis, hand [facility] Diagnosis Nasal septal abscess- Primary Other diseases of nasal cavity and sinuses Primary osteoarthritis of first carpometacarpal joint of right hand Primary localized osteoarthrosis, hand [facility] Diagnosis Essential hypertension Unspecified essential hypertension Primary osteoarthritis of first carpometacarpal joint of right hand Primary localized osteoarthrosis, hand [facility] Diagnosis Obstructive sleep apnea- Primary Obstructive [...] Nausea Nausea alone [facility] Diagnosis Obstructive sleep apnea- Primary Obstructive [...] Unspecified essential hypertension [facility] Diagnosis Obstructive sleep apnea- Primary [...] thoracic back pain [facility] Diagnosis Obstructive sleep apnea- Primary [...] of body structure [facility] Diagnosis Obstructive sleep apnea- Primary Obstructive [...] and myositis, unspecified documented in this encounter [facility] note* Diagnosis Obstructive sleep apnea- Primary [...] and myositis, unspecified [facility]* Diagnosis Obstructive sleep apnea- Primary Obstructive [...] joint, multiple sites documented in this encounter [facility] note* Diagnosis Obstructive sleep apnea- Primary [...] unspecified spinal region [facility] Diagnosis Obstructive sleep apnea- Primary Obstructive [...] Shortness of breath [facility] Diagnosis Obstructive sleep apnea- Primary Obstructive [...] single bacterial disease [facility] Diagnosis Obstructive sleep apnea- Primary [...] unspecified whether stage 3a or 3b CKD ([facility])- Primary documented in this encounter [facility] note* Diagnosis Obstructive sleep apnea- Primary Obstructive sleep apnea (adult) (pediatric) NSTEMI (non-ST elevated myocardial infarction) ([facility]) Acute myocardial infarction, subendocardial infarction, episode of [...] Chronic pain syndrome documented in this encounter [facility] note* Diagnosis Obstructive sleep apnea- Primary [...] Hypokalemia- Primary Hypopotassemia [facility] Diagnosis Obstructive sleep apnea- Primary Obstructive [...] Unspecified essential hypertension [facility] Diagnosis Obstructive sleep apnea- Primary Obstructive [...] back or spine [facility] Diagnosis Obstructive sleep apnea- Primary Obstructive [...] Nausea Nausea alone [facility] Diagnosis Obstructive sleep apnea- Primary [...] Trigger finger (acquired) [facility] Diagnosis Obstructive sleep apnea- Primary Obstructive [...] and unspecified hyperlipidemia [facility] Diagnosis Obstructive sleep apnea- Primary Obstructive [...] Unspecified essential hypertension [facility]* Diagnosis Obstructive sleep apnea- Primary Obstructive [...] Nausea Nausea alone documented in this encounter [facility] note* Diagnosis Obstructive sleep apnea- Primary [...] Chronic pain syndrome [facility] Diagnosis Obstructive sleep apnea- Primary Obstructive [...] Unspecified essential hypertension [facility] Diagnosis Obstructive sleep apnea- Primary Obstructive [...] hypertension Mixed hyperlipidemia documented in this encounter [facility] note* Diagnosis Obstructive sleep apnea- Primary [...] Anxiety state, unspecified documented in this encounter [facility] note* Diagnosis Obstructive sleep apnea- Primary [...] Unspecified essential hypertension [facility]* Diagnosis Obstructive sleep apnea- Primary Obstructive [...] depressive disorder (HCC) documented in this encounter [facility] note* Diagnosis Obstructive sleep apnea- Primary [...] Unspecified essential hypertension [facility]* Diagnosis Obstructive sleep apnea- Primary Obstructive [...] and unspecified hyperlipidemia documented in this encounter [facility] note* Diagnosis Obstructive sleep apnea- Primary [...] on supplemental oxygen documented in this encounter [facility] note* Diagnosis Obstructive sleep apnea- Primary [...] Shortness of breath [facility] Diagnosis Obstructive sleep apnea- Primary [...] asthma, unspecified asthma severity, unspecified whether persistent ([facility]) Marijuana use Cannabis abuse, unspecified History of substance use [facility] Diagnosis Obstructive sleep apnea- Primary [...] unspecified type- Primary documented in this encounter [facility] note* Diagnosis Obstructive sleep apnea- Primary [...] Chronic pain syndrome documented in this encounter [facility] note* Diagnosis Obstructive sleep apnea- Primary [...] persistent (HCC)- Primary [facility] Diagnosis Obstructive sleep apnea- Primary Obstructive [...] change Memory loss documented in this encounter [facility] note* Diagnosis Obstructive sleep apnea- Primary [...] Hospital discharge follow-up- Primary Other follow-up examination MRSA bacteremia Bacteremia Pain syndrome, chronic Chronic pain syndrome Essential hypertension Unspecified essential hypertension Hyperlipidemia, unspecified hyperlipidemia type Moderate episode of recurrent major depressive disorder (HCC) Anxiety Anxiety state, unspecified Gastroesophageal reflux disease without esophagitis Esophageal reflux [facility] Author Linwood Joe [facility] Note Date/Time July 26, 2024 6:34p [facility] Medical Records Department [address] [place] [address] H&P Exam - Hospitalist 07/26/24 1827 MR#: [id number] Acct: [id number] Name: LEYDA LOPEZ Rep #:[id number] : 1960 63 From: Linwood Joe DO PCP: DALI RICE VINYL DIPPER-C Status:REG ER Location: ED HPI - General [...] she has had a hernia repair surgery. [facility] Medical History CHF (congestive heart failure) [...] (Auto) 72.8 H, Lymph % (Auto) 14.4 L,[place] % (Auto) 10.3 H, Eos % (Auto) [...] Clarity Clear, Urine pH 5.0, Ur Specific Taylor 1.015, Urine Protein 30 H, Urine Glucose [...] steatosis. 3. Stable bibasilar consolidations. Reading Location: [id number] Assessment & Plan Assessment/Plan (1) Small bowel [...] full code. Charges/Coding Visit Charges Inpatient E&M: 61051 Init Hosp L3 07/26/24 1830 <Electronically signed by Linwood Joe DO> Cosigner Signature (if applicable): CC: SHMUEL RICE; Dr. Linwood Jeo DO~ Signed [facility] Work Phone: Hospital Discharge instructions Additional Instructions Your workup is very similar to when you were discharged from the hospital. Your weakness is related to your prolonged stay in the hospital with deconditioning as well as the fact you take multiple medications that can cause drowsiness and weakness. I do feel that you would benefit from a short stay in rehab or usp in order to regain your strength. However as you are refusing to be placed in 1 of these facilities I have no choice but to discharge you home. If you change your mind about potential placement or have further concerns please return to the ER for repeat [facility]WW[facility] Work Phone: Reason for referral (narrative)* Diagnostic Procedure Only (Routine) - Pending Review Specialty Diagnoses / Procedures Referred By Contac t Referred To Contact [facility] Diagnoses Encounter for screening mammogram for breast cancer Procedures JEAN CLAUDE SCREENING SCREENING MAMMOGRAPHY BI 2-VIEW BREAST INC Velvet Rose MD [address] [place] [address] [facility] [address] [place] [address] Referral ID Status Reason Start Date Expiration Date Visits Requested Visits Authorized [id number] Pending Review Auto-Generat ed Referral 10/18/2021 11/17/2022 1 1 [facility] for referral (narrative)* Diagnostic Procedure Only (Routine) - Authorized Specialty Diagnoses / Procedures Referred By Contac t Referred To Contact [facility] Diagnoses Diarrhea, unspecified type Right upper quadrant abdominal tenderness without rebound tenderness Nausea Procedures US ABD RT UPPER QUADRANT US ABDOMINAL REAL TIME W/IMAGE LIMITED Dali Rice APRN.BULK PLANT AGENT [address] [place] [address] Us Imaging Referral ID Status Reason Start Date Expiration Date Visits Requested Visits Authorized [id number] Authorized Auto-Generat ed Referral 2 03/02/2023 1 1 * Consult, Test, Treat (Routine) - Pending Review Specialty Diagnoses / Procedures Referred By Contac t Referred To Contact Gastroenterology Diagnoses Diarrhea, unspecified type Procedures CONSULT TO GASTROENTEROLOGY OFFICE/OUTPATIENT [facility] 60-74 MINUTES Dali Rice APRN.CNP [address] [place] [address] Referral ID Status Reason Start Date Expiration Date Visits Requested Visits Authorized [id number] Pending Review PCP Requested Referral 2 01/31/2023 1 1 [facility] for referral (narrative)* Diagnostic Procedure Only (Routine) - Closed Specialty Diagnoses / Procedures Referred By Contac t Referred To Contact XR IMAGING Diagnoses Chronic back pain, unspecified back location, unspecified back pain laterality Kyphosis, unspecified kyphosis type, unspecified spinal region Procedures XR THORACIC GENERAL 3V AP/LAT/SWIMMERS RADEX SPINE THORACIC 3 VIEWS Dali Rice APRN.BULK PLANT AGENT [address] [place] [address] Xr Imaging Referral ID Status Reason Start Date Expiration Date V isits Requested Visits Authorized [id number] Closed Auto-Generate d Referral 10/01/2022 10/31/2023 1 1 * Diagnostic Procedure Only (Routine) - Closed Specialty Diagnoses / Procedures Referred By Contac t Referred To Contact XR IMAGING Diagnoses Chronic back pain, unspecified back location, unspecified back pain laterality Kyphosis, unspecified kyphosis type, unspecified spinal region Procedures XR LUMBAR GENERAL 3V AP/LAT/L5-S1 RADEX SPINE LUMBOSACRAL 2/3 VIEWS Dali Rice APRN.BULK PLANT AGENT [address] [place] [address] Xr Imaging Referral ID Status Reason Start Date Expiration Date V isits Requested Visits Authorized [id number] Closed Auto-Generate d Referral 10/01/2022 10/31/2023 1 1 [facility] for referral (narrative)* Outpatient Procedure (Routine) - Authorized Specialty Diagnoses / Procedures Referred By Contac t Referred To Contact [facility] Diagnoses Asthma with chronic obstructive pulmonary disease (COPD) (HCC) Procedures LUNG DIFFUSION CAPACITY (DLCO) DIFFUSING CAPACITY Radha Willams MD [address] [place] [address] [facility] [place] [address] [place] [address] Referral ID Status Reason Start Date Expiration Date Visits Requested Visits Authorized [id number] Authorized Auto-Generat ed Referral 07/05/2023 08/03/2024 1 1 * Outpatient Procedure (Routine) - Authorized Specialty Diagnoses / Procedures Referred By Contac t Referred To Contact [facility] Diagnoses Asthma with chronic obstructive pulmonary disease (COPD) (HCC) Procedures LUNG VOLUMES PLETHYSMOGRAPHY LUNG VOLUMES W/WO AIRWAY RESIST Radha Willams MD [address] [place] [address] [facility] [place] [address] [place] [address] Referral ID Status Reason Start Date Expiration Date Visits Requested Visits Authorized [id number] Authorized Auto-Generat ed Referral 07/05/2023 03/03/2024 1 1 * Outpatient Procedure (Routine) - Authorized Specialty Diagnoses / Procedures Referred By Reji t Referred To Contact [facility] Diagnoses Asthma with chronic obstructive pulmonary disease (COPD) (HCC) Procedures SPIROMETRY WITH DILATOR IF OBSTRUCTED BRNCDILAT RSPSE SPMTRY PRE&POST-BRNCDILAT ADMRadha Her MD [address] [place] [address] [facility] [place] [address] [place] [address] Referral ID Status Reason Start Date Expiration Date Visits Requested Visits Authorized [id number] Authorized Auto-Generat ed Referral 07/05/2023 08/03/2024 1 1 [facility] for referral (narrative)* Diagnostic Procedure Only (Routine) - Pending Review Specialty Diagnoses / Procedures [facility] To Contact BR IMAGING Diagnoses Encounter for screening mammogram for breast cancer Procedures JEAN CLAUDE SCREENING W TITO SCREENING DIGITAL BREAST TOMOSYNTHESIS BI SCREENING MAMMOGRAPHY BI 2-VIEW BREAST INC Velvet Rose MD [address] [place] [address] Br Imaging [address] [place] [address] Referral ID Status Reason Start Date Expiration Date Visits Requested Visits Authorized [id number] Pending Review Auto-Generat ed Referral 08/28/2023 09/26/2024 1 1 [facility] for referral (narrative)* Diagnostic Procedure Only (Routine) - Closed Specialty Diagnoses / Procedures Referred By Contac t Referred To Contact XR IMAGING Diagnoses Acute midline thoracic back pain Procedures XR THORACIC GENERAL 3V AP/LAT/SWIMMERS RADEX SPINE THORACIC 3 VIEWS Ines Lopez PA-C [address] [place] [address] [place] [address] Referral ID Status Reason Start Date Expiration Date V isits Requested Visits Authorized [id number] Closed Auto-Generate d Referral 10/22/2023 11/20/2024 1 1 [facility] for referral (narrative)* Diagnostic Procedure Only (Routine) - Closed Specialty Diagnoses / Procedures Referred By Contac t Referred To Contact XR IMAGING Diagnoses Acute midline thoracic back pain Procedures XR THORACIC GENERAL 3V AP/LAT/SWIMMERS RADEX SPINE THORACIC 3 VIEWS Ines Lopez PA-C [address] [place] [address] [place] [address] Referral ID Status Reason Start Date Expiration Date V isits Requested Visits Authorized [id number] Closed Auto-Generate d Referral 10/22/2023 11/20/2024 1 1 [facility] for referral (narrative)* Diagnostic Procedure Only (Routine) - Closed Specialty Diagnoses / Procedures Referred By Contac t Referred To Contact XR IMAGING Diagnoses Pain in joint, multiple sites Procedures XR HAND GENERAL 3V PA/LAT/OBL BILATERAL RADEX HAND MINIMUM 3 VIEWS Mari Martinez, 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 ASSOCIATE.BULK PLANT AGENT [address] [place] [address] [place] [address] Referral ID Status Reason Start Date Expiration Date V isits Requested Visits Authorized [id number] Closed Auto-Generate d Referral 04/29/2023 05/28/2024 1 1 [facility] for referral (narrative)* Diagnostic Procedure Only (Routine) - Closed Specialty Diagnoses / Procedures Referred By Contac t Referred To Contact XR IMAGING Diagnoses Chronic back pain, unspecified back location, unspecified back pain laterality Kyphosis, unspecified kyphosis type, unspecified spinal region Procedures XR THORACIC GENERAL 3V AP/LAT/SWIMMERS RADEX SPINE THORACIC 3 VIEWS Dali Rice APRN.BULK PLANT AGENT [address] [place] [address] [place] [address] Referral ID Status Reason Start Date Expiration Date V isits Requested Visits Authorized [id number] Closed Auto-Generate d Referral 10/01/2022 10/31/2023 1 1 * Diagnostic Procedure Only (Routine) - Closed Specialty Diagnoses / Procedures Referred By Contac t Referred To Contact XR IMAGING Diagnoses Chronic back pain, unspecified back location, unspecified back pain laterality Kyphosis, unspecified kyphosis type, unspecified spinal region Procedures XR LUMBAR GENERAL 3V AP/LAT/L5-S1 RADEX SPINE LUMBOSACRAL 2/3 VIEWS Dali Rice APRN.BULK PLANT AGENT [address] [place] [address] [place] [address] Referral ID Status Reason Start Date Expiration Date V isits Requested Visits Authorized [id number] Closed Auto-Generate d Referral 10/01/2022 10/31/2023 1 1 [facility] for referral (narrative)No reason for referral information availableWWayne [facility] Work Phone: [employer] for visit Narrative* Diagnostic Procedure Only (Routine) - Closed Specialty Diagnoses / Procedures Referred By Contac t Referred To Contact XR IMAGING Diagnoses Pain Procedures XR WRIST GENERAL 3V PA/LAT/OBL BILATERAL RADEX WRIST COMPLETE MINIMUM 3 VIEWS Sebas Molina MD [address] [place] [address] [place] [address] Referral ID Status Reason Start Date Expiration Date V isits Requested Visits Authorized [id number] Closed Auto-Generate d Referral 06/15/2023 07/14/2024 1 1 [facility] for visit Narrative* Diagnostic Procedure Only (Routine) - Closed Specialty Diagnoses / Procedures Referred By Contac t Referred To Contact XR IMAGING Diagnoses Acute midline thoracic back pain Procedures XR THORACIC GENERAL 3V AP/LAT/SWIMMERS RADEX SPINE THORACIC 3 VIEWS Ines Lopez PA-C [address] [place] [address] [place] [address] Referral ID Status Reason Start Date Expiration Date V isits Requested Visits Authorized [id number] Closed Auto-Generate d Referral 10/22/2023 11/20/2024 1 1 [facility] for visit Narrative* Diagnostic Procedure Only (Routine) - Closed Specialty Diagnoses / Procedures Referred By Contac t Referred To Contact XR IMAGING Diagnoses Chronic back pain, unspecified back location, unspecified back pain laterality Kyphosis, unspecified kyphosis type, unspecified spinal region Procedures XR THORACIC GENERAL 3V AP/LAT/SWIMMERS RADEX SPINE THORACIC 3 VIEWS Dali Rice APRN.BULK PLANT AGENT [address] [place] [address] [place] [address] Referral ID Status Reason Start Date Expiration Date V isits Requested Visits Authorized [id number] Closed Auto-Generate d Referral 10/01/2022 10/31/2023 1 1 [facility] Summary Purpose Family History No Family [...] FoundDocuments on File Type Date Recorded 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 Advance Directive(s) 12/18/2017 2:41 PM Advance Directive(s) 12/18/2017 4:42 PM Advance Directive(s) 04/10/2017 9:16 AM Advance Directive(s) 12/01/2016 2:35 PM Documents on File Type Date Recorded 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 Advance Directive(s) 12/18/2017 4:42 PM Documents on File Type Date Recorded 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 Advance Directive(s) 12/18/2017 4:42 PM Advance Directive Response Recorded Date/ Time Advance Directives No March 21, 2015 8:32am Living Will No November 14, 2022 11:43am Power of Marketing Editor No November 11:43am Advance Directive Response Recorded Date/ Time Advance Directives No March 21, 2015 7:32am Living Will No May 11, 2023 11:19am Power of Marketing Editor No May 10 11:19am Advance Directive Response Recorded Date/ Time Advance Directives No March 21, 2015 8:32am Living Will No May 11, 2023 4:02pm Power of Marketing Editor No May 10 4:02pm Advance Directive Response Recorded Date/ Time Advance Directives No March 21, 2015 8:32am Living Will No June 04, 2023 11:27am Power of Marketing Editor No June 03 11:27am Advance Directive Response Recorded Date/ Time Advance Directives No March 21, 2015 8:32am Living Will No June 04, 2023 5:09pm Power of Marketing Editor No June 03 5:09pm Advance Directive Response Recorded Date/ Time Living Will No May 01 7:44pm Do you have a Healthcare Power of Marketing Editor? No May 01, 2024 7:44pm Do you have a Healthcare Power of Marketing Editor? No July 26, 2024 3:32pm Advance Directives No March 21, 2015 8:32am Advance Directive Response Recorded Date/ Time Living Will No May 01 7:44pm Do you have a Healthcare Power of Marketing Editor? No May 01, 2024 7:44pm Do you have a Healthcare Power of Marketing Editor? No July 26, 2024 7:46pm Advance Directives No March 21, 2015 8:32am Advance Directive Response Recorded Date/ Time Living Will No May 01 7:44pm Do you have a Healthcare Power of Marketing Editor? No May 01, 2024 7:44pm Do you have a Healthcare Power of Marketing Editor? No July 26, 2024 7:46pm Do you have a Healthcare Power of Marketing Editor? Yes August 06, 2024 3:44am Name of Medical Power of Marketing Editor linwood August 06, 2024 3:44am Advance Directives No March 21, 2015 8:32am [...] NEW HIGH MDM 60-74 MINUTES Dali Rice APRN.BULK PLANT AGENT [address] [place] [address] Referral ID Status Reason Start Date Expiration Date Visits Requested Visits Authorized [id number] Authorized PCP Requested Referral 01/03/2022 01/03/2023 1 1 Specialty Diagnoses / Procedures Referred By Contac t Referred To Contact CT IMAGING Diagnoses Elevated lipase Elevated amylase RUQ pain Nausea Chronic diarrhea Procedures CT ABDOMEN WO IVCON CT ABDOMEN W/O CONTRAST Dali Rice APRN.BULK PLANT AGENT [address] [place] [address] Ct Imaging Referral ID Status Reason Start Date Expiration Date Visits Requested Visits Authorized [id number] Pending Review Auto-Generat ed Referral 02/01/2022 03/03/2023 1 1 Specialty Diagnoses / Procedures Referred By Contac t Referred To Contact CT IMAGING Diagnoses Elevated lipase Elevated amylase RUQ pain Nausea Chronic diarrhea Procedures CT ABDOMEN WO IVCON CT ABDOMEN W/O CONTRAST Dali Rice APRN.BULK PLANT AGENT [address] [place] [address] [place] [address] Referral ID Status Reason Start Date Expiration Date V isits Requested Visits Authorized [id number] Closed Auto-Generate d Referral 02/01/2022 03/03/2023 1 1 Specialty Diagnoses / Procedures Referred By Contac t Referred To Contact Diagnoses Dali Prince, 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 ASSOCIATE.BULK PLANT AGENT [address] [place] [address] Referral ID Status Reason Start Date Expiration Date Visits Re quested Visits Authorized [id number] Denied 1 1 Specialty Diagnoses / Procedures Referred By Contac t Referred To Contact Cardiology Diagnoses Acute on chronic diastolic congestive heart failure (HCC) Procedures CONSULT TO CARDIOLOGY OFFICE/OUTPATIENT [facility] 60 MINUTES FernandezFernando stone, 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 ASSOCIATE.RECOVERY COLLECTOR [address] [place] [address] Referral ID Status Reason Start Date Expiration Date Visits Requested Visits Authorized [id number] Authorized PCP Requested Referral 06/10/2023 06/09/2024 1 1 Specialty Diagnoses / Procedures Referred By Contac t Referred To Contact Pulmonary and Critical Care Medicine Diagnoses Community acquired pneumonia, unspecified laterality Acute on chronic respiratory failure with hypoxia (HCC) Centrilobular emphysema (HCC) Procedures CONSULT TO PULM/CRITICAL CARE OFFICE/OUTPATIENT [facility] 60 MINUTES FernandezFernando stone, 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 ASSOCIATE.RECOVERY COLLECTOR [address] [place] [address] Referral ID Status Reason Start Date Expiration Date Visits Requested Visits Authorized [id number] Authorized PCP Requested Referral 06/10/2023 06/09/2024 1 1 Specialty Diagnoses / Procedures Referred By Contac t Referred To Contact [facility] Diagnoses Primary osteoarthritis of first carpometacarpal joint of right hand Procedures CONSULT TO [facility] EVAL HIGH COMPLEX 60 MINS Vickie Barth PA-C [address] [place] [address] [facility] [place] [address] [place] [address] Referral ID Status Reason Start Date Expiration Date Visits Requested Visits Authorized [id number] Authorized PCP Requested Referral Auto-Generate d Referral 09/17/2023 09/16/2024 99 99 Specialty Diagnoses / Procedures Referred By Contac t Referred To Contact CT IMAGING Diagnoses Thoracic degenerative disc disease Pain syndrome, chronic Compression deformity of vertebra Abnormal x-ray Encounter for observation for other suspected diseases and conditions ruled out Procedures CT THORACIC SPINE WO IVCON CT THORACIC SPINE W/O CONTRAST MATERIAL Dali Rice APRN.BULK PLANT AGENT [address] [place] [address] [place] [address] Referral ID Status Reason Start Date Expiration Date Visits Requested Visits Authorized [id number] New Request Auto-Generat ed Referral 11/06/2023 12/05/2024 1 1 Specialty Diagnoses / Procedures Referred By Reji winkler Referred To Contact Pain Management Diagnoses Thoracic degenerative disc disease Pain syndrome, chronic Compression deformity of vertebra Procedures CONSULT TO PAIN MGT OFFICE/OUTPATIENT [facility] 60 MINUTES Dali Rice APRN.BULK PLANT AGENT [address] [place] [address] Referral ID Status Reason Start Date Expiration Date Visits Requested Visits Authorized [id number] Authorized PCP Requested Referral 11/06/2023 11/05/2024 1 [...] bowel obstruction July 26, 2024 6 :23pm Chief Complaint Admit Date COPD EXACERBATION May 01, 2024 4:42pm COPD EXACERBATION May 01, 2024 4:49pm COPD EXACERBATION May 02, 2024 9:18 am COPD EXACERBATION May 03, 2024 2:59 pm SBO July 26, 2024 6:23p m N/V July 26, 2024 6:27p m SBO July 27, 2024 7:24a m SBO July 27, 2024 1:49p m SBO July 28, 2024 7:13a m SBO July 28, 2024 11:12 am SBO July 29, 2024 7:31a m SBO July 29, 2024 2:59p m SBO July 30, 2024 12:12 pm SBO July 31, 2024 2:40p m SBO July 31, 2024 6:21p m SBO August 01, 2024 7:58a m SBO August 01, 2024 3:04p m SBO August 02, 2024 12:23 pm SBO August 02, 2024 1:59p m SBO August 03, 2024 9:06a m SBO August 04, 2024 8:16a m SBO August 05, 2024 12:52 pm Reason for Visit Admit Date Migraines May 01, 2024 4:42pm Acute on chronic hypoxic respiratory son lure May 01, 2024 4:42pm CHF exacerbation May 01, 2024 4:42pm COPD exacerbation May 01, 2024 4:42pm Pneumonia May 01, 2024 4:42pm JOSE (acute kidney injury) July 26, 2024 6:23pm MRSA bacteremia July 26, 2024 6:23p m Pleural effusion July 26, 2024 6:23p m Sepsis July 26, 2024 6:23p m Small bowel obstruction July 26, 2024 6 :23pm Smoking greater than 20 pack years July 032024 6:23pm COPD (chronic obstructive pulmonary dise ase) July 26, 2024 6:23pm HTN (hypertension) July 26, 2024 6:23p m Rheumatoid arthritis July 26, 2024 6:23 pm Chief Complaint Admit Date COPD EXACERBATION May 01, 2024 4:42pm COPD EXACERBATION May 01, 2024 4:49pm COPD EXACERBATION May 02, 2024 9:18 am COPD EXACERBATION May 03, 2024 2:59 pm SBO July 26, 2024 6:23p m N/V July 26, 2024 6:27p m SBO July 27, 2024 7:24a m SBO July 27, 2024 1:49p m SBO July 28, 2024 7:13a m SBO July 28, 2024 11:12 am SBO July 29, 2024 7:31a m SBO July 29, 2024 2:59p m SBO July 30, 2024 12:12 pm SBO July 31, 2024 2:40p m SBO July 31, 2024 6:21p m SBO August 01, 2024 7:58a m SBO August 01, 2024 3:04p m SBO August 02, 2024 12:23 pm SBO August 02, 2024 1:59p m SBO August 03, 2024 9:06a m SBO August 04, 2024 8:16a m SBO August 05, 2024 12:52 pm alt loc August 06, 2024 3:43a m Chief Complaint Admit Date COPD EXACERBATION May 01, 2024 4:42pm COPD EXACERBATION May 01, 2024 4:49pm COPD EXACERBATION May 02, 2024 9:18 am COPD EXACERBATION May 03, 2024 2:59 pm SBO July 26, 2024 6:23p m N/V July 26, 2024 6:27p m SBO July 27, 2024 7:24a m SBO July 27, 2024 1:49p m SBO July 28, 2024 7:13a m SBO July 28, 2024 11:12 am SBO July 29, 2024 7:31a m SBO July 29, 2024 2:59p m SBO July 30, 2024 12:12 pm SBO July 31, 2024 2:40p m SBO July 31, 2024 6:21p m SBO August 01, 2024 7:58a m SBO August 01, 2024 3:04p m SBO August 02, 2024 12:23 pm SBO August 02, 2024 1:59p m SBO August 03, 2024 9:06a m RT ARM PAIN August 03, 2024 1:18p m SBO August 04, 2024 8:16a m SBO August 05, 2024 12:52 pm alt loc August 06, 2024 3:43a m ACTIVASE August 14, 2024 9:56 am Reason for Visit Admit Date Acute on chronic hypoxic respiratory son lure May 01, 2024 4:42pm CHF exacerbation May 01, 2024 4:42pm COPD exacerbation May 01, 2024 4:42pm Pneumonia May 01, 2024 4:42pm Migraines May 01, 2024 4:42pm Pleural effusion July 26, 2024 6:23p m JOSE (acute kidney injury) July 26, 2024 6:23pm MRSA bacteremia July 26, 2024 6:23p m Sepsis July 26, 2024 6:23p m Small bowel obstruction July 26, 2024 6 :23pm COPD (chronic obstructive pulmonary dise ase) July 26, 2024 6:23pm HTN (hypertension) July 26, 2024 6:23p m Rheumatoid arthritis July 26, 2024 6:23 pm Smoking greater than 20 pack years July 032024 6:23pm Additional Source Comments INFORMATION SOURCE (unrecogn ized section and content) DATE CREATED AUTHOR 08/22/2017 [facility] DATE CREATED AUTHOR AUTHOR'S ORGANIZ ATION 08/26/2017 [facility] DATE CREATED AUTHOR AUTHOR'S ORGANIZ ATION 08/26/2017 [facility] DATE CREATED AUTHOR AUTHOR'S ORGANIZ ATION 08/28/2017 [facility] DATE CREATED AUTHOR AUTHOR'S ORGANIZ ATION 08/28/2017 [facility] DATE CREATED AUTHOR AUTHOR'S ORGANIZ ATION 05/21/2023 [facility] ([place]) DATE CREATED AUTHOR AUTHOR'S ORGANIZ ATION 03/19/2024 [facility] DATE CREATED AUTHOR AUTHOR'S ORGANIZ ATION 08/16/2024 [facility] DATE CREATED AUTHOR AUTHOR'S ORGANIZ ATION 08/17/2024 [facility] Source Comments (unrecognize d section and content) In the event this informatio n is protected by the Federal Confidentiality of Alcohol and Drug Abuse Patient Records regulations: The Federal rules restrict any use of the information to criminally investigate or prosecute any alcohol or drug abuse patient.[facility] the event this information is protected by the Federal Confidentiality of Alcohol and Drug Abuse Patient Records regulations: The Federal rules restrict any use of the information to criminally investigate or prosecute any alcohol or drug abuse patient.[facility] HospitalIn the event this information is protected by the Federal Confidentiality of Alcohol and Drug Abuse Patient Records regulations: The Federal rules restrict any use of the information to criminally investigate or prosecute any alcohol or drug abuse patient.[facility] HospitalIn the event this information is protected by the Federal Confidentiality of Alcohol and Drug Abuse Patient Records regulations: The Federal rules restrict any use of the information to criminally investigate or prosecute any alcohol or drug abuse patient.[facility] HospitalIn the event this information is protected by the Federal Confidentiality of Alcohol and Drug Abuse Patient Records regulations: The Federal rules restrict any use of the information to criminally investigate or prosecute any alcohol or drug abuse patient.[facility] HospitalIn the event this information is protected by the Federal Confidentiality of Alcohol and Drug Abuse Patient Records regulations: The Federal rules restrict any use of the information to criminally investigate or prosecute any alcohol or drug abuse patient.[facility] HospitalIn the event this information is protected by the Federal Confidentiality of Alcohol and Drug Abuse Patient Records regulations: The Federal rules restrict any use of the information to criminally investigate or prosecute any alcohol or drug abuse patient.[facility] HospitalIn the event this information is protected by the Federal Confidentiality of Alcohol and Drug Abuse Patient Records regulations: The Federal rules restrict any use of the information to criminally investigate or prosecute any alcohol or drug abuse patient.[facility] HospitalIn the event this information is protected by the Federal Confidentiality of Alcohol and Drug Abuse Patient Records regulations: The Federal rules restrict any use of the information to criminally investigate or prosecute any alcohol or drug abuse patient.[facility] HospitalIn the event this information is protected by the Federal Confidentiality of Alcohol and Drug Abuse Patient Records regulations: The Federal rules restrict any use of the information to criminally investigate or prosecute any alcohol or drug abuse patient.[facility] HospitalIn the event this information is protected by the Federal Confidentiality of Alcohol and Drug Abuse Patient Records regulations: The Federal rules restrict any use of the information to criminally investigate or prosecute any alcohol or drug abuse patient.[facility] HospitalIn the event this information is protected by the Federal Confidentiality of Alcohol and Drug Abuse Patient Records regulations: The Federal rules restrict any use of the information to criminally investigate or prosecute any alcohol or drug abuse patient.[facility] HospitalIn the event this information is protected by the Federal Confidentiality of Alcohol and Drug Abuse Patient Records regulations: The Federal rules restrict any use of the information to criminally investigate or prosecute any alcohol or drug abuse patient.[facility] HospitalIn the event this information is protected by the Federal Confidentiality of Alcohol and Drug Abuse Patient Records regulations: The Federal rules restrict any use of the information to criminally investigate or prosecute any alcohol or drug abuse patient.[facility] HospitalIn the event this information is protected by the Federal Confidentiality of Alcohol and Drug Abuse Patient Records regulations: The Federal rules restrict any use of the information to criminally investigate or prosecute any alcohol or drug abuse patient.[facility] HospitalIn the event this information is protected by the Federal Confidentiality of Alcohol and Drug Abuse Patient Records regulations: The Federal rules restrict any use of the information to criminally investigate or prosecute any alcohol or drug abuse patient.[facility] HospitalIn the event this information is protected by the Federal Confidentiality of Alcohol and Drug Abuse Patient Records regulations: The Federal rules restrict any use of the information to criminally investigate or prosecute any alcohol or drug abuse patient.[facility] HospitalIn the event this information is protected by the Federal Confidentiality of Alcohol and Drug Abuse Patient Records regulations: The Federal rules restrict any use of the information to criminally investigate or prosecute any alcohol or drug abuse patient.[facility] HospitalIn the event this information is protected by the Federal Confidentiality of Alcohol and Drug Abuse Patient Records regulations: The Federal rules restrict any use of the information to criminally investigate or prosecute any alcohol or drug abuse patient.[facility] HospitalIn the event this information is protected by the Federal Confidentiality of Alcohol and Drug Abuse Patient Records regulations: The Federal rules restrict any use of the information to criminally investigate or prosecute any alcohol or drug abuse patient.[facility] HospitalIn the event this information is protected by the Federal Confidentiality of Alcohol and Drug Abuse Patient Records regulations: The Federal rules restrict any use of the information to criminally investigate or prosecute any alcohol or drug abuse patient.[facility] HospitalIn the event this information is protected by the Federal Confidentiality of Alcohol and Drug Abuse Patient Records regulations: The Federal rules restrict any use of the information to criminally investigate or prosecute any alcohol or drug abuse patient.[facility] HospitalIn the event this information is protected by the Federal Confidentiality of Alcohol and Drug Abuse Patient Records regulations: The Federal rules restrict any use of the information to criminally investigate or prosecute any alcohol or drug abuse patient.[facility] HospitalIn the event this information is protected by the Federal Confidentiality of Alcohol and Drug Abuse Patient Records regulations: The Federal rules restrict any use of the information to criminally investigate or prosecute any alcohol or drug abuse patient.[facility] HospitalIn the event this information is protected by the Federal Confidentiality of Alcohol and Drug Abuse Patient Records regulations: The Federal rules restrict any use of the information to criminally investigate or prosecute any alcohol or drug abuse patient.[facility] HospitalIn the event this information is protected by the Federal Confidentiality of Alcohol and Drug Abuse Patient Records regulations: The Federal rules restrict any use of the information to criminally investigate or prosecute any alcohol or drug abuse patient.[facility] HospitalIn the event this information is protected by the Federal Confidentiality of Alcohol and Drug Abuse Patient Records regulations: The Federal rules restrict any use of the information to criminally investigate or prosecute any alcohol or drug abuse patient.[facility] HospitalIn the event this information is protected by the Federal Confidentiality of Alcohol and Drug Abuse Patient Records regulations: The Federal rules restrict any use of the information to criminally investigate or prosecute any alcohol or drug abuse patient.[facility] HospitalIn the event this information is protected by the Federal Confidentiality of Alcohol and Drug Abuse Patient Records regulations: The Federal rules restrict any use of the information to criminally investigate or prosecute any alcohol or drug abuse patient.[facility] HospitalIn the event this information is protected by the Federal Confidentiality of Alcohol and Drug Abuse Patient Records regulations: The Federal rules restrict any use of the information to criminally investigate or prosecute any alcohol or drug abuse patient.[facility] HospitalIn the event this information is protected by the Federal Confidentiality of Alcohol and Drug Abuse Patient Records regulations: The Federal rules restrict any use of the information to criminally investigate or prosecute any alcohol or drug abuse patient.[facility] HospitalIn the event this information is protected by the Federal Confidentiality of Alcohol and Drug Abuse Patient Records regulations: The Federal rules restrict any use of the information to criminally investigate or prosecute any alcohol or drug abuse patient.[facility] HospitalIn the event this information is protected by the Federal Confidentiality of Alcohol and Drug Abuse Patient Records regulations: The Federal rules restrict any use of the information to criminally investigate or prosecute any alcohol or drug abuse patient.[facility] HospitalIn the event this information is protected by the Federal Confidentiality of Alcohol and Drug Abuse Patient Records regulations: The Federal rules restrict any use of the information to criminally investigate or prosecute any alcohol or drug abuse patient.[facility] HospitalIn the event this information is protected by the Federal Confidentiality of Alcohol and Drug Abuse Patient Records regulations: The Federal rules restrict any use of the information to criminally investigate or prosecute any alcohol or drug abuse patient.[facility] HospitalIn the event this information is protected by the Federal Confidentiality of Alcohol and Drug Abuse Patient Records regulations: The Federal rules restrict any use of the information to criminally investigate or prosecute any alcohol or drug abuse patient.[facility] HospitalIn the event this information is protected by the Federal Confidentiality of Alcohol and Drug Abuse Patient Records regulations: The Federal rules restrict any use of the information to criminally investigate or prosecute any alcohol or drug abuse patient.[facility] HospitalIn the event this information is protected by the Federal Confidentiality of Alcohol and Drug Abuse Patient Records regulations: The Federal rules restrict any use of the information to criminally investigate or prosecute any alcohol or drug abuse patient.[facility] HospitalIn the event this information is protected by the Federal Confidentiality of Alcohol and Drug Abuse Patient Records regulations: The Federal rules restrict any use of the information to criminally investigate or prosecute any alcohol or drug abuse patient.[facility] HospitalIn the event this information is protected by the Federal Confidentiality of Alcohol and Drug Abuse Patient Records regulations: The Federal rules restrict any use of the information to criminally investigate or prosecute any alcohol or drug abuse patient.[facility] HospitalIn the event this information is protected by the Federal Confidentiality of Alcohol and Drug Abuse Patient Records regulations: The Federal rules restrict any use of the information to criminally investigate or prosecute any alcohol or drug abuse patient.[facility] HospitalIn the event this information is protected by the Federal Confidentiality of Alcohol and Drug Abuse Patient Records regulations: The Federal rules restrict any use of the information to criminally investigate or prosecute any alcohol or drug abuse patient.[facility] HospitalIn the event this information is protected by the Federal Confidentiality of Alcohol and Drug Abuse Patient Records regulations: The Federal rules restrict any use of the information to criminally investigate or prosecute any alcohol or drug abuse patient.[facility] HospitalIn the event this information is protected by the Federal Confidentiality of Alcohol and Drug Abuse Patient Records regulations: The Federal rules restrict any use of the information to criminally investigate or prosecute any alcohol or drug abuse patient.[facility] HospitalIn the event this information is protected by the Federal Confidentiality of Alcohol and Drug Abuse Patient Records regulations: The Federal rules restrict any use of the information to criminally investigate or prosecute any alcohol or drug abuse patient.[facility] HospitalIn the event this information is protected by the Federal Confidentiality of Alcohol and Drug Abuse Patient Records regulations: The Federal rules restrict any use of the information to criminally investigate or prosecute any alcohol or drug abuse patient.[facility] HospitalIn the event this information is protected by the Federal Confidentiality of Alcohol and Drug Abuse Patient Records regulations: The Federal rules restrict any use of the information to criminally investigate or prosecute any alcohol or drug abuse patient.[facility] HospitalIn the event this information is protected by the Federal Confidentiality of Alcohol and Drug Abuse Patient Records regulations: The Federal rules restrict any use of the information to criminally investigate or prosecute any alcohol or drug abuse patient.[facility] HospitalIn the event this information is protected by the Federal Confidentiality of Alcohol and Drug Abuse Patient Records regulations: The Federal rules restrict any use of the information to criminally investigate or prosecute any alcohol or drug abuse patient.[facility] HospitalIn the event this information is protected by the Federal Confidentiality of Alcohol and Drug Abuse Patient Records regulations: The Federal rules restrict any use of the information to criminally investigate or prosecute any alcohol or drug abuse patient.[facility] HospitalIn the event this information is protected by the Federal Confidentiality of Alcohol and Drug Abuse Patient Records regulations: The Federal rules restrict any use of the information to criminally investigate or prosecute any alcohol or drug abuse patient.[facility] HospitalIn the event this information is protected by the Federal Confidentiality of Alcohol and Drug Abuse Patient Records regulations: The Federal rules restrict any use of the information to criminally investigate or prosecute any alcohol or drug abuse patient.[facility] HospitalIn the event this information is protected by the Federal Confidentiality of Alcohol and Drug Abuse Patient Records regulations: The Federal rules restrict any use of the information to criminally investigate or prosecute any alcohol or drug abuse patient.[facility] HospitalIn the event this information is protected by the Federal Confidentiality of Alcohol and Drug Abuse Patient Records regulations: The Federal rules restrict any use of the information to criminally investigate or prosecute any alcohol or drug abuse patient.[facility] HospitalIn the event this information is protected by the Federal Confidentiality of Alcohol and Drug Abuse Patient Records regulations: The Federal rules restrict any use of the information to criminally investigate or prosecute any alcohol or drug abuse patient.[facility] HospitalIn the event this information is protected by the Federal Confidentiality of Alcohol and Drug Abuse Patient Records regulations: The Federal rules restrict any use of the information to criminally investigate or prosecute any alcohol or drug abuse patient.[facility] HospitalIn the event this information is protected by the Federal Confidentiality of Alcohol and Drug Abuse Patient Records regulations: The Federal rules restrict any use of the information to criminally investigate or prosecute any alcohol or drug abuse patient.[facility] HospitalIn the event this information is protected by the Federal Confidentiality of Alcohol and Drug Abuse Patient Records regulations: The Federal rules restrict any use of the information to criminally investigate or prosecute any alcohol or drug abuse patient.[facility] HospitalIn the event this information is protected by the Federal Confidentiality of Alcohol and Drug Abuse Patient Records regulations: The Federal rules restrict any use of the information to criminally investigate or prosecute any alcohol or drug abuse patient.[facility] HospitalIn the event this information is protected by the Federal Confidentiality of Alcohol and Drug Abuse Patient Records regulations: The Federal rules restrict any use of the information to criminally investigate or prosecute any alcohol or drug abuse patient.[facility] HospitalIn the event this information is protected by the Federal Confidentiality of Alcohol and Drug Abuse Patient Records regulations: The Federal rules restrict any use of the information to criminally investigate or prosecute any alcohol or drug abuse patient.[facility] HospitalIn the event this information is protected by the Federal Confidentiality of Alcohol and Drug Abuse Patient Records regulations: The Federal rules restrict any use of the information to criminally investigate or prosecute any alcohol or drug abuse patient.[facility] HospitalIn the event this information is protected by the Federal Confidentiality of Alcohol and Drug Abuse Patient Records regulations: The Federal rules restrict any use of the information to criminally investigate or prosecute any alcohol or drug abuse patient.[facility] HospitalIn the event this information is protected by the Federal Confidentiality of Alcohol and Drug Abuse Patient Records regulations: The Federal rules restrict any use of the information to criminally investigate or prosecute any alcohol or drug abuse patient.[facility] HospitalIn the event this information is protected by the Federal Confidentiality of Alcohol and Drug Abuse Patient Records regulations: The Federal rules restrict any use of the information to criminally investigate or prosecute any alcohol or drug abuse patient.[facility] HospitalIn the event this information is protected by the Federal Confidentiality of Alcohol and Drug Abuse Patient Records regulations: The Federal rules restrict any use of the information to criminally investigate or prosecute any alcohol or drug abuse patient.[facility] HospitalIn the event this information is protected by the Federal Confidentiality of Alcohol and Drug Abuse Patient Records regulations: The Federal rules restrict any use of the information to criminally investigate or prosecute any alcohol or drug abuse patient.[facility] HospitalIn the event this information is protected by the Federal Confidentiality of Alcohol and Drug Abuse Patient Records regulations: The Federal rules restrict any use of the information to criminally investigate or prosecute any alcohol or drug abuse patient.[facility] HospitalIn the event this information is protected by the Federal Confidentiality of Alcohol and Drug Abuse Patient Records regulations: The Federal rules restrict any use of the information to criminally investigate or prosecute any alcohol or drug abuse patient.[facility] HospitalIn the event this information is protected by the Federal Confidentiality of Alcohol and Drug Abuse Patient Records regulations: The Federal rules restrict any use of the information to criminally investigate or prosecute any alcohol or drug abuse patient.[facility] HospitalIn the event this information is protected by the Federal Confidentiality of Alcohol and Drug Abuse Patient Records regulations: The Federal rules restrict any use of the information to criminally investigate or prosecute any alcohol or drug abuse patient.[facility] HospitalIn the event this information is protected by the Federal Confidentiality of Alcohol and Drug Abuse Patient Records regulations: The Federal rules restrict any use of the information to criminally investigate or prosecute any alcohol or drug abuse patient.[facility] HospitalIn the event this information is protected by the Federal Confidentiality of Alcohol and Drug Abuse Patient Records regulations: The Federal rules restrict any use of the information to criminally investigate or prosecute any alcohol or drug abuse patient.[facility] HospitalIn the event this information is protected by the Federal Confidentiality of Alcohol and Drug Abuse Patient Records regulations: The Federal rules restrict any use of the information to criminally investigate or prosecute any alcohol or drug abuse patient.[facility] HospitalIn the event this information is protected by the Federal Confidentiality of Alcohol and Drug Abuse Patient Records regulations: The Federal rules restrict any use of the information to criminally investigate or prosecute any alcohol or drug abuse patient.[facility] HospitalIn the event this information is protected by the Federal Confidentiality of Alcohol and Drug Abuse Patient Records regulations: The Federal rules restrict any use of the information to criminally investigate or prosecute any alcohol or drug abuse patient.[facility] HospitalIn the event this information is protected by the Federal Confidentiality of Alcohol and Drug Abuse Patient Records regulations: The Federal rules restrict any use of the information to criminally investigate or prosecute any alcohol or drug abuse patient.[facility] HospitalIn the event this information is protected by the Federal Confidentiality of Alcohol and Drug Abuse Patient Records regulations: The Federal rules restrict any use of the information to criminally investigate or prosecute any alcohol or drug abuse patient.[facility] HospitalIn the event this information is protected by the Federal Confidentiality of Alcohol and Drug Abuse Patient Records regulations: The Federal rules restrict any use of the information to criminally investigate or prosecute any alcohol or drug abuse patient.[facility] HospitalIn the event this information is protected by the Federal Confidentiality of Alcohol and Drug Abuse Patient Records regulations: The Federal rules restrict any use of the information to criminally investigate or prosecute any alcohol or drug abuse patient.[facility] HospitalIn the event this information is protected by the Federal Confidentiality of Alcohol and Drug Abuse Patient Records regulations: The Federal rules restrict any use of the information to criminally investigate or prosecute any alcohol or drug abuse patient.[facility] HospitalIn the event this information is protected by the Federal Confidentiality of Alcohol and Drug Abuse Patient Records regulations: The Federal rules restrict any use of the information to criminally investigate or prosecute any alcohol or drug abuse patient.[facility] HospitalIn the event this information is protected by the Federal Confidentiality of Alcohol and Drug Abuse Patient Records regulations: The Federal rules restrict any use of the information to criminally investigate or prosecute any alcohol or drug abuse patient.[facility] HospitalIn the event this information is protected by the Federal Confidentiality of Alcohol and Drug Abuse Patient Records regulations: The Federal rules restrict any use of the information to criminally investigate or prosecute any alcohol or drug abuse patient.[facility] HospitalIn the event this information is protected by the Federal Confidentiality of Alcohol and Drug Abuse Patient Records regulations: The Federal rules restrict any use of the information to criminally investigate or prosecute any alcohol or drug abuse patient.[facility] HospitalIn the event this information is protected by the Federal Confidentiality of Alcohol and Drug Abuse Patient Records regulations: The Federal rules restrict any use of the information to criminally investigate or prosecute any alcohol or drug abuse patient.[facility] HospitalIn the event this information is protected by the Federal Confidentiality of Alcohol and Drug Abuse Patient Records regulations: The Federal rules restrict any use of the information to criminally investigate or prosecute any alcohol or drug abuse patient.[facility] HospitalIn the event this information is protected by the Federal Confidentiality of Alcohol and Drug Abuse Patient Records regulations: The Federal rules restrict any use of the information to criminally investigate or prosecute any alcohol or drug abuse patient.[facility] HospitalIn the event this information is protected by the Federal Confidentiality of Alcohol and Drug Abuse Patient Records regulations: The Federal rules restrict any use of the information to criminally investigate or prosecute any alcohol or drug abuse patient.[facility] HospitalIn the event this information is protected by the Federal Confidentiality of Alcohol and Drug Abuse Patient Records regulations: The Federal rules restrict any use of the information to criminally investigate or prosecute any alcohol or drug abuse patient.[facility] HospitalIn the event this information is protected by the Federal Confidentiality of Alcohol and Drug Abuse Patient Records regulations: The Federal rules restrict any use of the information to criminally investigate or prosecute any alcohol or drug abuse patient.[facility] HospitalIn the event this information is protected by the Federal Confidentiality of Alcohol and Drug Abuse Patient Records regulations: The Federal rules restrict any use of the information to criminally investigate or prosecute any alcohol or drug abuse patient.[facility] HospitalIn the event this information is protected by the Federal Confidentiality of Alcohol and Drug Abuse Patient Records regulations: The Federal rules restrict any use of the information to criminally investigate or prosecute any alcohol or drug abuse patient.[facility] HospitalIn the event this information is protected by the Federal Confidentiality of Alcohol and Drug Abuse Patient Records regulations: The Federal rules restrict any use of the information to criminally investigate or prosecute any alcohol or drug abuse patient.[facility] HospitalIn the event this information is protected by the Federal Confidentiality of Alcohol and Drug Abuse Patient Records regulations: The Federal rules restrict any use of the information to criminally investigate or prosecute any alcohol or drug abuse patient.[facility] HospitalIn the event this information is protected by the Federal Confidentiality of Alcohol and Drug Abuse Patient Records regulations: The Federal rules restrict any use of the information to criminally investigate or prosecute any alcohol or drug abuse patient.[facility] HospitalIn the event this information is protected by the Federal Confidentiality of Alcohol and Drug Abuse Patient Records regulations: The Federal rules restrict any use of the information to criminally investigate or prosecute any alcohol or drug abuse patient.[facility] HospitalIn the event this information is protected by the Federal Confidentiality of Alcohol and Drug Abuse Patient Records regulations: The Federal rules restrict any use of the information to criminally investigate or prosecute any alcohol or drug abuse patient.[facility] HospitalIn the event this information is protected by the Federal Confidentiality of Alcohol and Drug Abuse Patient Records regulations: The Federal rules restrict any use of the information to criminally investigate or prosecute any alcohol or drug abuse patient.[facility] HospitalIn the event this information is protected by the Federal Confidentiality of Alcohol and Drug Abuse Patient Records regulations: The Federal rules restrict any use of the information to criminally investigate or prosecute any alcohol or drug abuse patient.[facility] HospitalIn the event this information is protected by the Federal Confidentiality of Alcohol and Drug Abuse Patient Records regulations: The Federal rules restrict any use of the information to criminally investigate or prosecute any alcohol or drug abuse patient.[facility] HospitalIn the event this information is protected by the Federal Confidentiality of Alcohol and Drug Abuse Patient Records regulations: The Federal rules restrict any use of the information to criminally investigate or prosecute any alcohol or drug abuse patient.[facility] HospitalIn the event this information is protected by the Federal Confidentiality of Alcohol and Drug Abuse Patient Records regulations: The Federal rules restrict any use of the information to criminally investigate or prosecute any alcohol or drug abuse patient.[facility] HospitalIn the event this information is protected by the Federal Confidentiality of Alcohol and Drug Abuse Patient Records regulations: The Federal rules restrict any use of the information to criminally investigate or prosecute any alcohol or drug abuse patient.[facility] HospitalIn the event this information is protected by the Federal Confidentiality of Alcohol and Drug Abuse Patient Records regulations: The Federal rules restrict any use of the information to criminally investigate or prosecute any alcohol or drug abuse patient.[facility] HospitalIn the event this information is protected by the Federal Confidentiality of Alcohol and Drug Abuse Patient Records regulations: The Federal rules restrict any use of the information to criminally investigate or prosecute any alcohol or drug abuse patient.[facility] HospitalIn the event this information is protected by the Federal Confidentiality of Alcohol and Drug Abuse Patient Records regulations: The Federal rules restrict any use of the information to criminally investigate or prosecute any alcohol or drug abuse patient.[facility] HospitalIn the event this information is protected by the Federal Confidentiality of Alcohol and Drug Abuse Patient Records regulations: The Federal rules restrict any use of the information to criminally investigate or prosecute any alcohol or drug abuse patient.[facility] HospitalIn the event this information is protected by the Federal Confidentiality of Alcohol and Drug Abuse Patient Records regulations: The Federal rules restrict any use of the information to criminally investigate or prosecute any alcohol or drug abuse patient.[facility] HospitalIn the event this information is protected by the Federal Confidentiality of Alcohol and Drug Abuse Patient Records regulations: The Federal rules restrict any use of the information to criminally investigate or prosecute any alcohol or drug abuse patient.[facility] HospitalIn the event this information is protected by the Federal Confidentiality of Alcohol and Drug Abuse Patient Records regulations: The Federal rules restrict any use of the information to criminally investigate or prosecute any alcohol or drug abuse patient.[facility] HospitalIn the event this information is protected by the Federal Confidentiality of Alcohol and Drug Abuse Patient Records regulations: The Federal rules restrict any use of the information to criminally investigate or prosecute any alcohol or drug abuse patient.[facility] HospitalIn the event this information is protected by the Federal Confidentiality of Alcohol and Drug Abuse Patient Records regulations: The Federal rules restrict any use of the information to criminally investigate or prosecute any alcohol or drug abuse patient.[facility] HospitalIn the event this information is protected by the Federal Confidentiality of Alcohol and Drug Abuse Patient Records regulations: The Federal rules restrict any use of the information to criminally investigate or prosecute any alcohol or drug abuse patient.[facility] HospitalIn the event this information is protected by the Federal Confidentiality of Alcohol and Drug Abuse Patient Records regulations: The Federal rules restrict any use of the information to criminally investigate or prosecute any alcohol or drug abuse patient.[facility] HospitalIn the event this information is protected by the Federal Confidentiality of Alcohol and Drug Abuse Patient Records regulations: The Federal rules restrict any use of the information to criminally investigate or prosecute any alcohol or drug abuse patient.[facility] HospitalIn the event this information is protected by the Federal Confidentiality of Alcohol and Drug Abuse Patient Records regulations: The Federal rules restrict any use of the information to criminally investigate or prosecute any alcohol or drug abuse patient.[facility] HospitalIn the event this information is protected by the Federal Confidentiality of Alcohol and Drug Abuse Patient Records regulations: The Federal rules restrict any use of the information to criminally investigate or prosecute any alcohol or drug abuse patient.[facility] HospitalIn the event this information is protected by the Federal Confidentiality of Alcohol and Drug Abuse Patient Records regulations: The Federal rules restrict any use of the information to criminally investigate or prosecute any alcohol or drug abuse patient.[facility] HospitalIn the event this information is protected by the Federal Confidentiality of Alcohol and Drug Abuse Patient Records regulations: The Federal rules restrict any use of the information to criminally investigate or prosecute any alcohol or drug abuse patient.[facility] HospitalIn the event this information is protected by the Federal Confidentiality of Alcohol and Drug Abuse Patient Records regulations: The Federal rules restrict any use of the information to criminally investigate or prosecute any alcohol or drug abuse patient.[facility] HospitalIn the event this information is protected by the Federal Confidentiality of Alcohol and Drug Abuse Patient Records regulations: The Federal rules restrict any use of the information to criminally investigate or prosecute any alcohol or drug abuse patient.[facility] HospitalIn the event this information is protected by the Federal Confidentiality of Alcohol and Drug Abuse Patient Records regulations: The Federal rules restrict any use of the information to criminally investigate or prosecute any alcohol or drug abuse patient.[facility] HospitalIn the event this information is protected by the Federal Confidentiality of Alcohol and Drug Abuse Patient Records regulations: The Federal rules restrict any use of the information to criminally investigate or prosecute any alcohol or drug abuse patient.[facility] HospitalIn the event this information is protected by the Federal Confidentiality of Alcohol and Drug Abuse Patient Records regulations: The Federal rules restrict any use of the information to criminally investigate or prosecute any alcohol or drug abuse patient.[facility] HospitalIn the event this information is protected by the Federal Confidentiality of Alcohol and Drug Abuse Patient Records regulations: The Federal rules restrict any use of the information to criminally investigate or prosecute any alcohol or drug abuse patient.[facility] HospitalIn the event this information is protected by the Federal Confidentiality of Alcohol and Drug Abuse Patient Records regulations: The Federal rules restrict any use of the information to criminally investigate or prosecute any alcohol or drug abuse patient.[facility] HospitalIn the event this information is protected by the Federal Confidentiality of Alcohol and Drug Abuse Patient Records regulations: The Federal rules restrict any use of the information to criminally investigate or prosecute any alcohol or drug abuse patient.[facility] HospitalIn the event this information is protected by the Federal Confidentiality of Alcohol and Drug Abuse Patient Records regulations: The Federal rules restrict any use of the information to criminally investigate or prosecute any alcohol or drug abuse patient.[facility] HospitalIn the event this information is protected by the Federal Confidentiality of Alcohol and Drug Abuse Patient Records regulations: The Federal rules restrict any use of the information to criminally investigate or prosecute any alcohol or drug abuse patient.[facility] HospitalIn the event this information is protected by the Federal Confidentiality of Alcohol and Drug Abuse Patient Records regulations: The Federal rules restrict any use of the information to criminally investigate or prosecute any alcohol or drug abuse patient.[facility] HospitalIn the event this information is protected by the Federal Confidentiality of Alcohol and Drug Abuse Patient Records regulations: The Federal rules restrict any use of the information to criminally investigate or prosecute any alcohol or drug abuse patient.[facility] HospitalIn the event this information is protected by the Federal Confidentiality of Alcohol and Drug Abuse Patient Records regulations: The Federal rules restrict any use of the information to criminally investigate or prosecute any alcohol or drug abuse patient.[facility] HospitalIn the event this information is protected by the Federal Confidentiality of Alcohol and Drug Abuse Patient Records regulations: The Federal rules restrict any use of the information to criminally investigate or prosecute any alcohol or drug abuse patient.[facility] HospitalIn the event this information is protected by the Federal Confidentiality of Alcohol and Drug Abuse Patient Records regulations: The Federal rules restrict any use of the information to criminally investigate or prosecute any alcohol or drug abuse patient.[facility] HospitalIn the event this information is protected by the Federal Confidentiality of Alcohol and Drug Abuse Patient Records regulations: The Federal rules restrict any use of the information to criminally investigate or prosecute any alcohol or drug abuse patient.[facility] HospitalIn the event this information is protected by the Federal Confidentiality of Alcohol and Drug Abuse Patient Records regulations: The Federal rules restrict any use of the information to criminally investigate or prosecute any alcohol or drug abuse patient.[facility] HospitalIn the event this information is protected by the Federal Confidentiality of Alcohol and Drug Abuse Patient Records regulations: The Federal rules restrict any use of the information to criminally investigate or prosecute any alcohol or drug abuse patient.[facility] HospitalIn the event this information is protected by the Federal Confidentiality of Alcohol and Drug Abuse Patient Records regulations: The Federal rules restrict any use of the information to criminally investigate or prosecute any alcohol or drug abuse patient.[facility] HospitalIn the event this information is protected by the Federal Confidentiality of Alcohol and Drug Abuse Patient Records regulations: The Federal rules restrict any use of the information to criminally investigate or prosecute any alcohol or drug abuse patient.[facility] HospitalIn the event this information is protected by the Federal Confidentiality of Alcohol and Drug Abuse Patient Records regulations: The Federal rules restrict any use of the information to criminally investigate or prosecute any alcohol or drug abuse patient.[facility] HospitalIn the event this information is protected by the Federal Confidentiality of Alcohol and Drug Abuse Patient Records regulations: The Federal rules restrict any use of the information to criminally investigate or prosecute any alcohol or drug abuse patient.[facility] HospitalIn the event this information is protected by the Federal Confidentiality of Alcohol and Drug Abuse Patient Records regulations: The Federal rules restrict any use of the information to criminally investigate or prosecute any alcohol or drug abuse patient.[facility] HospitalIn the event this information is protected by the Federal Confidentiality of Alcohol and Drug Abuse Patient Records regulations: The Federal rules restrict any use of the information to criminally investigate or prosecute any alcohol or drug abuse patient.[facility] HospitalIn the event this information is protected by the Federal Confidentiality of Alcohol and Drug Abuse Patient Records regulations: The Federal rules restrict any use of the information to criminally investigate or prosecute any alcohol or drug abuse patient.[facility] HospitalIn the event this information is protected by the Federal Confidentiality of Alcohol and Drug Abuse Patient Records regulations: The Federal rules restrict any use of the information to criminally investigate or prosecute any alcohol or drug abuse patient.[facility] HospitalIn the event this information is protected by the Federal Confidentiality of Alcohol and Drug Abuse Patient Records regulations: The Federal rules restrict any use of the information to criminally investigate or prosecute any alcohol or drug abuse patient.[facility] HospitalIn the event this information is protected by the Federal Confidentiality of Alcohol and Drug Abuse Patient Records regulations: The Federal rules restrict any use of the information to criminally investigate or prosecute any alcohol or drug abuse patient.[facility] HospitalIn the event this information is protected by the Federal Confidentiality of Alcohol and Drug Abuse Patient Records regulations: The Federal rules restrict any use of the information to criminally investigate or prosecute any alcohol or drug abuse patient.[facility] HospitalIn the event this information is protected by the Federal Confidentiality of Alcohol and Drug Abuse Patient Records regulations: The Federal rules restrict any use of the information to criminally investigate or prosecute any alcohol or drug abuse patient.[facility] HospitalIn the event this information is protected by the Federal Confidentiality of Alcohol and Drug Abuse Patient Records regulations: The Federal rules restrict any use of the information to criminally investigate or prosecute any alcohol or drug abuse patient.[facility] HospitalIn the event this information is protected by the Federal Confidentiality of Alcohol and Drug Abuse Patient Records regulations: The Federal rules restrict any use of the information to criminally investigate or prosecute any alcohol or drug abuse patient.[facility] HospitalIn the event this information is protected by the Federal Confidentiality of Alcohol and Drug Abuse Patient Records regulations: The Federal rules restrict any use of the information to criminally investigate or prosecute any alcohol or drug abuse patient.[facility] HospitalIn the event this information is protected by the Federal Confidentiality of Alcohol and Drug Abuse Patient Records regulations: The Federal rules restrict any use of the information to criminally investigate or prosecute any alcohol or drug abuse patient.[facility] HospitalIn the event this information is protected by the Federal Confidentiality of Alcohol and Drug Abuse Patient Records regulations: The Federal rules restrict any use of the information to criminally investigate or prosecute any alcohol or drug abuse patient.[facility] HospitalIn the event this information is protected by the Federal Confidentiality of Alcohol and Drug Abuse Patient Records regulations: The Federal rules restrict any use of the information to criminally investigate or prosecute any alcohol or drug abuse patient.[facility] HospitalIn the event this information is protected by the Federal Confidentiality of Alcohol and Drug Abuse Patient Records regulations: The Federal rules restrict any use of the information to criminally investigate or prosecute any alcohol or drug abuse patient.[facility] HospitalIn the event this information is protected by the Federal Confidentiality of Alcohol and Drug Abuse Patient Records regulations: The Federal rules restrict any use of the information to criminally investigate or prosecute any alcohol or drug abuse patient.[facility] HospitalIn the event this information is protected by the Federal Confidentiality of Alcohol and Drug Abuse Patient Records regulations: The Federal rules restrict any use of the information to criminally investigate or prosecute any alcohol or drug abuse patient.[facility] HospitalIn the event this information is protected by the Federal Confidentiality of Alcohol and Drug Abuse Patient Records regulations: The Federal rules restrict any use of the information to criminally investigate or prosecute any alcohol or drug abuse patient.[facility] HospitalIn the event this information is protected by the Federal Confidentiality of Alcohol and Drug Abuse Patient Records regulations: The Federal rules restrict any use of the information to criminally investigate or prosecute any alcohol or drug abuse patient.[facility] HospitalIn the event this information is protected by the Federal Confidentiality of Alcohol and Drug Abuse Patient Records regulations: The Federal rules restrict any use of the information to criminally investigate or prosecute any alcohol or drug abuse patient.[facility] HospitalIn the event this information is protected by the Federal Confidentiality of Alcohol and Drug Abuse Patient Records regulations: The Federal rules restrict any use of the information to criminally investigate or prosecute any alcohol or drug abuse patient.[facility] HospitalIn the event this information is protected by the Federal Confidentiality of Alcohol and Drug Abuse Patient Records regulations: The Federal rules restrict any use of the information to criminally investigate or prosecute any alcohol or drug abuse patient.[facility] HospitalIn the event this information is protected by the Federal Confidentiality of Alcohol and Drug Abuse Patient Records regulations: The Federal rules restrict any use of the information to criminally investigate or prosecute any alcohol or drug abuse patient.[facility] HospitalIn the event this information is protected by the Federal Confidentiality of Alcohol and Drug Abuse Patient Records regulations: The Federal rules restrict any use of the information to criminally investigate or prosecute any alcohol or drug abuse patient.[facility] HospitalIn the event this information is protected by the Federal Confidentiality of Alcohol and Drug Abuse Patient Records regulations: The Federal rules restrict any use of the information to criminally investigate or prosecute any alcohol or drug abuse patient.[facility] HospitalIn the event this information is protected by the Federal Confidentiality of Alcohol and Drug Abuse Patient Records regulations: The Federal rules restrict any use of the information to criminally investigate or prosecute any alcohol or drug abuse patient.[facility] HospitalIn the event this information is protected by the Federal Confidentiality of Alcohol and Drug Abuse Patient Records regulations: The Federal rules restrict any use of the information to criminally investigate or prosecute any alcohol or drug abuse patient.[facility] HospitalIn the event this information is protected by the Federal Confidentiality of Alcohol and Drug Abuse Patient Records regulations: The Federal rules restrict any use of the information to criminally investigate or prosecute any alcohol or drug abuse patient.[facility] HospitalIn the event this information is protected by the Federal Confidentiality of Alcohol and Drug Abuse Patient Records regulations: The Federal rules restrict any use of the information to criminally investigate or prosecute any alcohol or drug abuse patient.[facility] HospitalIn the event this information is protected by the Federal Confidentiality of Alcohol and Drug Abuse Patient Records regulations: The Federal rules restrict any use of the information to criminally investigate or prosecute any alcohol or drug abuse patient.[facility] HospitalIn the event this information is protected by the Federal Confidentiality of Alcohol and Drug Abuse Patient Records regulations: The Federal rules restrict any use of the information to criminally investigate or prosecute any alcohol or drug abuse patient.[facility] HospitalIn the event this information is protected by the Federal Confidentiality of Alcohol and Drug Abuse Patient Records regulations: The Federal rules restrict any use of the information to criminally investigate or prosecute any alcohol or drug abuse patient.[facility] HospitalIn the event this information is protected by the Federal Confidentiality of Alcohol and Drug Abuse Patient Records regulations: The Federal rules restrict any use of the information to criminally investigate or prosecute any alcohol or drug abuse patient.[facility] HospitalIn the event this information is protected by the Federal Confidentiality of Alcohol and Drug Abuse Patient Records regulations: The Federal rules restrict any use of the information to criminally investigate or prosecute any alcohol or drug abuse patient.[facility] HospitalIn the event this information is protected by the Federal Confidentiality of Alcohol and Drug Abuse Patient Records regulations: The Federal rules restrict any use of the information to criminally investigate or prosecute any alcohol or drug abuse patient.[facility] HospitalIn the event this information is protected by the Federal Confidentiality of Alcohol and Drug Abuse Patient Records regulations: The Federal rules restrict any use of the information to criminally investigate or prosecute any alcohol or drug abuse patient.[facility] HospitalIn the event this information is protected by the Federal Confidentiality of Alcohol and Drug Abuse Patient Records regulations: The Federal rules restrict any use of the information to criminally investigate or prosecute any alcohol or drug abuse patient.[facility] HospitalIn the event this information is protected by the Federal Confidentiality of Alcohol and Drug Abuse Patient Records regulations: The Federal rules restrict any use of the information to criminally investigate or prosecute any alcohol or drug abuse patient.[facility] HospitalIn the event this information is protected by the Federal Confidentiality of Alcohol and Drug Abuse Patient Records regulations: The Federal rules restrict any use of the information to criminally investigate or prosecute any alcohol or drug abuse patient.[facility] HospitalIn the event this information is protected by the Federal Confidentiality of Alcohol and Drug Abuse Patient Records regulations: The Federal rules restrict any use of the information to criminally investigate or prosecute any alcohol or drug abuse patient.[facility] HospitalIn the event this information is protected by the Federal Confidentiality of Alcohol and Drug Abuse Patient Records regulations: The Federal rules restrict any use of the information to criminally investigate or prosecute any alcohol or drug abuse patient.[facility] HospitalIn the event this information is protected by the Federal Confidentiality of Alcohol and Drug Abuse Patient Records regulations: The Federal rules restrict any use of the information to criminally investigate or prosecute any alcohol or drug abuse patient.[facility] HospitalIn the event this information is protected by the Federal Confidentiality of Alcohol and Drug Abuse Patient Records regulations: The Federal rules restrict any use of the information to criminally investigate or prosecute any alcohol or drug abuse patient.[facility] HospitalIn the event this information is protected by the Federal Confidentiality of Alcohol and Drug Abuse Patient Records regulations: The Federal rules restrict any use of the information to criminally investigate or prosecute any alcohol or drug abuse patient.[facility] HospitalIn the event this information is protected by the Federal Confidentiality of Alcohol and Drug Abuse Patient Records regulations: The Federal rules restrict any use of the information to criminally investigate or prosecute any alcohol or drug abuse patient.[facility] HospitalIn the event this information is protected by the Federal Confidentiality of Alcohol and Drug Abuse Patient Records regulations: The Federal rules restrict any use of the information to criminally investigate or prosecute any alcohol or drug abuse patient.[facility] HospitalIn the event this information is protected by the Federal Confidentiality of Alcohol and Drug Abuse Patient Records regulations: The Federal rules restrict any use of the information to criminally investigate or prosecute any alcohol or drug abuse patient.[facility] HospitalIn the event this information is protected by the Federal Confidentiality of Alcohol and Drug Abuse Patient Records regulations: The Federal rules restrict any use of the information to criminally investigate or prosecute any alcohol or drug abuse patient.[facility] HospitalIn the event this information is protected by the Federal Confidentiality of Alcohol and Drug Abuse Patient Records regulations: The Federal rules restrict any use of the information to criminally investigate or prosecute any alcohol or drug abuse patient.[facility] HospitalIn the event this information is protected by the Federal Confidentiality of Alcohol and Drug Abuse Patient Records regulations: The Federal rules restrict any use of the information to criminally investigate or prosecute any alcohol or drug abuse patient.[facility] HospitalIn the event this information is protected by the Federal Confidentiality of Alcohol and Drug Abuse Patient Records regulations: The Federal rules restrict any use of the information to criminally investigate or prosecute any alcohol or drug abuse patient.[facility] HospitalIn the event this information is protected by the Federal Confidentiality of Alcohol and Drug Abuse Patient Records regulations: The Federal rules restrict any use of the information to criminally investigate or prosecute any alcohol or drug abuse patient.[facility] HospitalIn the event this information is protected by the Federal Confidentiality of Alcohol and Drug Abuse Patient Records regulations: The Federal rules restrict any use of the information to criminally investigate or prosecute any alcohol or drug abuse patient.[facility] HospitalIn the event this information is protected by the Federal Confidentiality of Alcohol and Drug Abuse Patient Records regulations: The Federal rules restrict any use of the information to criminally investigate or prosecute any alcohol or drug abuse patient.[facility] HospitalIn the event this information is protected by the Federal Confidentiality of Alcohol and Drug Abuse Patient Records regulations: The Federal rules restrict any use of the information to criminally investigate or prosecute any alcohol or drug abuse patient.[facility] HospitalIn the event this information is protected by the Federal Confidentiality of Alcohol and Drug Abuse Patient Records regulations: The Federal rules restrict any use of the information to criminally investigate or prosecute any alcohol or drug abuse patient.[facility] HospitalIn the event this information is protected by the Federal Confidentiality of Alcohol and Drug Abuse Patient Records regulations: The Federal rules restrict any use of the information to criminally investigate or prosecute any alcohol or drug abuse patient.[facility] HospitalIn the event this information is protected by the Federal Confidentiality of Alcohol and Drug Abuse Patient Records regulations: The Federal rules restrict any use of the information to criminally investigate or prosecute any alcohol or drug abuse patient.[facility] HospitalIn the event this information is protected by the Federal Confidentiality of Alcohol and Drug Abuse Patient Records regulations: The Federal rules restrict any use of the information to criminally investigate or prosecute any alcohol or drug abuse patient.[facility] HospitalIn the event this information is protected by the Federal Confidentiality of Alcohol and Drug Abuse Patient Records regulations: The Federal rules restrict any use of the information to criminally investigate or prosecute any alcohol or drug abuse patient.[facility] HospitalIn the event this information is protected by the Federal Confidentiality of Alcohol and Drug Abuse Patient Records regulations: The Federal rules restrict any use of the information to criminally investigate or prosecute any alcohol or drug abuse patient.[facility] HospitalIn the event this information is protected by the Federal Confidentiality of Alcohol and Drug Abuse Patient Records regulations: The Federal rules restrict any use of the information to criminally investigate or prosecute any alcohol or drug abuse patient.[facility] HospitalIn the event this information is protected by the Federal Confidentiality of Alcohol and Drug Abuse Patient Records regulations: The Federal rules restrict any use of the information to criminally investigate or prosecute any alcohol or drug abuse patient.[facility] HospitalIn the event this information is protected by the Federal Confidentiality of Alcohol and Drug Abuse Patient Records regulations: The Federal rules restrict any use of the information to criminally investigate or prosecute any alcohol or drug abuse patient.[facility] HospitalIn the event this information is protected by the Federal Confidentiality of Alcohol and Drug Abuse Patient Records regulations: The Federal rules restrict any use of the information to criminally investigate or prosecute any alcohol or drug abuse patient.[facility] HospitalIn the event this information is protected by the Federal Confidentiality of Alcohol and Drug Abuse Patient Records regulations: The Federal rules restrict any use of the information to criminally investigate or prosecute any alcohol or drug abuse patient.[facility] HospitalIn the event this information is protected by the Federal Confidentiality of Alcohol and Drug Abuse Patient Records regulations: The Federal rules restrict any use of the information to criminally investigate or prosecute any alcohol or drug abuse patient.[facility] HospitalIn the event this information is protected by the Federal Confidentiality of Alcohol and Drug Abuse Patient Records regulations: The Federal rules restrict any use of the information to criminally investigate or prosecute any alcohol or drug abuse patient.[facility] HospitalIn the event this information is protected by the Federal Confidentiality of Alcohol and Drug Abuse Patient Records regulations: The Federal rules restrict any use of the information to criminally investigate or prosecute any alcohol or drug abuse patient.[facility] HospitalIn the event this information is protected by the Federal Confidentiality of Alcohol and Drug Abuse Patient Records regulations: The Federal rules restrict any use of the information to criminally investigate or prosecute any alcohol or drug abuse patient.[facility] HospitalIn the event this information is protected by the Federal Confidentiality of Alcohol and Drug Abuse Patient Records regulations: The Federal rules restrict any use of the information to criminally investigate or prosecute any alcohol or drug abuse patient.[facility] HospitalIn the event this information is protected by the Federal Confidentiality of Alcohol and Drug Abuse Patient Records regulations: The Federal rules restrict any use of the information to criminally investigate or prosecute any alcohol or drug abuse patient.[facility] HospitalIn the event this information is protected by the Federal Confidentiality of Alcohol and Drug Abuse Patient Records regulations: The Federal rules restrict any use of the information to criminally investigate or prosecute any alcohol or drug abuse patient.[facility] HospitalIn the event this information is protected by the Federal Confidentiality of Alcohol and Drug Abuse Patient Records regulations: The Federal rules restrict any use of the information to criminally investigate or prosecute any alcohol or drug abuse patient.[facility] HospitalIn the event this information is protected by the Federal Confidentiality of Alcohol and Drug Abuse Patient Records regulations: The Federal rules restrict any use of the information to criminally investigate or prosecute any alcohol or drug abuse patient.[facility] HospitalIn the event this information is protected by the Federal Confidentiality of Alcohol and Drug Abuse Patient Records regulations: The Federal rules restrict any use of the information to criminally investigate or prosecute any alcohol or drug abuse patient.[facility] HospitalIn the event this information is protected by the Federal Confidentiality of Alcohol and Drug Abuse Patient Records regulations: The Federal rules restrict any use of the information to criminally investigate or prosecute any alcohol or drug abuse patient.[facility] HospitalIn the event this information is protected by the Federal Confidentiality of Alcohol and Drug Abuse Patient Records regulations: The Federal rules restrict any use of the information to criminally investigate or prosecute any alcohol or drug abuse patient.[facility] HospitalIn the event this information is protected by the Federal Confidentiality of Alcohol and Drug Abuse Patient Records regulations: The Federal rules restrict any use of the information to criminally investigate or prosecute any alcohol or drug abuse patient.[facility] HospitalIn the event this information is protected by the Federal Confidentiality of Alcohol and Drug Abuse Patient Records regulations: The Federal rules restrict any use of the information to criminally investigate or prosecute any alcohol or drug abuse patient.[facility] HospitalIn the event this information is protected by the Federal Confidentiality of Alcohol and Drug Abuse Patient Records regulations: The Federal rules restrict any use of the information to criminally investigate or prosecute any alcohol or drug abuse patient.[facility] HospitalIn the event this information is protected by the Federal Confidentiality of Alcohol and Drug Abuse Patient Records regulations: The Federal rules restrict any use of the information to criminally investigate or prosecute any alcohol or drug abuse patient.[facility] HospitalIn the event this information is protected by the Federal Confidentiality of Alcohol and Drug Abuse Patient Records regulations: The Federal rules restrict any use of the information to criminally investigate or prosecute any alcohol or drug abuse patient.[facility] HospitalIn the event this information is protected by the Federal Confidentiality of Alcohol and Drug Abuse Patient Records regulations: The Federal rules restrict any use of the information to criminally investigate or prosecute any alcohol or drug abuse patient.[facility] HospitalIn the event this information is protected by the Federal Confidentiality of Alcohol and Drug Abuse Patient Records regulations: The Federal rules restrict any use of the information to criminally investigate or prosecute any alcohol or drug abuse patient.[facility] HospitalIn the event this information is protected by the Federal Confidentiality of Alcohol and Drug Abuse Patient Records regulations: The Federal rules restrict any use of the information to criminally investigate or prosecute any alcohol or drug abuse patient.[facility] HospitalIn the event this information is protected by the Federal Confidentiality of Alcohol and Drug Abuse Patient Records regulations: The Federal rules restrict any use of the information to criminally investigate or prosecute any alcohol or drug abuse patient.[facility] HospitalIn the event this information is protected by the Federal Confidentiality of Alcohol and Drug Abuse Patient Records regulations: The Federal rules restrict any use of the information to criminally investigate or prosecute any alcohol or drug abuse patient.[facility] HospitalIn the event this information is protected by the Federal Confidentiality of Alcohol and Drug Abuse Patient Records regulations: The Federal rules restrict any use of the information to criminally investigate or prosecute any alcohol or drug abuse patient.[facility] HospitalIn the event this information is protected by the Federal Confidentiality of Alcohol and Drug Abuse Patient Records regulations: The Federal rules restrict any use of the information to criminally investigate or prosecute any alcohol or drug abuse patient.[facility] HospitalIn the event this information is protected by the Federal Confidentiality of Alcohol and Drug Abuse Patient Records regulations: The Federal rules restrict any use of the information to criminally investigate or prosecute any alcohol or drug abuse patient.[facility] HospitalIn the event this information is protected by the Federal Confidentiality of Alcohol and Drug Abuse Patient Records regulations: The Federal rules restrict any use of the information to criminally investigate or prosecute any alcohol or drug abuse patient.[facility] HospitalIn the event this information is protected by the Federal Confidentiality of Alcohol and Drug Abuse Patient Records regulations: The Federal rules restrict any use of the information to criminally investigate or prosecute any alcohol or drug abuse patient.[facility] HospitalIn the event this information is protected by the Federal Confidentiality of Alcohol and Drug Abuse Patient Records regulations: The Federal rules restrict any use of the information to criminally investigate or prosecute any alcohol or drug abuse patient.[facility] HospitalIn the event this information is protected by the Federal Confidentiality of Alcohol and Drug Abuse Patient Records regulations: The Federal rules restrict any use of the information to criminally investigate or prosecute any alcohol or drug abuse patient.[facility] HospitalIn the event this information is protected by the Federal Confidentiality of Alcohol and Drug Abuse Patient Records regulations: The Federal rules restrict any use of the information to criminally investigate or prosecute any alcohol or drug abuse patient.[facility] HospitalIn the event this information is protected by the Federal Confidentiality of Alcohol and Drug Abuse Patient Records regulations: The Federal rules restrict any use of the information to criminally investigate or prosecute any alcohol or drug abuse patient.[facility] HospitalIn the event this information is protected by the Federal Confidentiality of Alcohol and Drug Abuse Patient Records regulations: The Federal rules restrict any use of the information to criminally investigate or prosecute any alcohol or drug abuse patient.[facility] HospitalIn the event this information is protected by the Federal Confidentiality of Alcohol and Drug Abuse Patient Records regulations: The Federal rules restrict any use of the information to criminally investigate or prosecute any alcohol or drug abuse patient.[facility] HospitalIn the event this information is protected by the Federal Confidentiality of Alcohol and Drug Abuse Patient Records regulations: The Federal rules restrict any use of the information to criminally investigate or prosecute any alcohol or drug abuse patient.[facility] HospitalIn the event this information is protected by the Federal Confidentiality of Alcohol and Drug Abuse Patient Records regulations: The Federal rules restrict any use of the information to criminally investigate or prosecute any alcohol or drug abuse patient.[facility] HospitalIn the event this information is protected by the Federal Confidentiality of Alcohol and Drug Abuse Patient Records regulations: The Federal rules restrict any use of the information to criminally investigate or prosecute any alcohol or drug abuse patient.[facility] HospitalIn the event this information is protected by the Federal Confidentiality of Alcohol and Drug Abuse Patient Records regulations: The Federal rules restrict any use of the information to criminally investigate or prosecute any alcohol or drug abuse patient.[facility] HospitalIn the event this information is protected by the Federal Confidentiality of Alcohol and Drug Abuse Patient Records regulations: The Federal rules restrict any use of the information to criminally investigate or prosecute any alcohol or drug abuse patient.[facility] HospitalIn the event this information is protected by the Federal Confidentiality of Alcohol and Drug Abuse Patient Records regulations: The Federal rules restrict any use of the information to criminally investigate or prosecute any alcohol or drug abuse patient.[facility] HospitalIn the event this information is protected by the Federal Confidentiality of Alcohol and Drug Abuse Patient Records regulations: The Federal rules restrict any use of the information to criminally investigate or prosecute any alcohol or drug abuse patient.[facility] HospitalIn the event this information is protected by the Federal Confidentiality of Alcohol and Drug Abuse Patient Records regulations: The Federal rules restrict any use of the information to criminally investigate or prosecute any alcohol or drug abuse patient.[facility] HospitalIn the event this information is protected by the Federal Confidentiality of Alcohol and Drug Abuse Patient Records regulations: The Federal rules restrict any use of the information to criminally investigate or prosecute any alcohol or drug abuse patient.[facility] HospitalIn the event this information is protected by the Federal Confidentiality of Alcohol and Drug Abuse Patient Records regulations: The Federal rules restrict any use of the information to criminally investigate or prosecute any alcohol or drug abuse patient.[facility] HospitalIn the event this information is protected by the Federal Confidentiality of Alcohol and Drug Abuse Patient Records regulations: The Federal rules restrict any use of the information to criminally investigate or prosecute any alcohol or drug abuse patient.[facility] HospitalIn the event this information is protected by the Federal Confidentiality of Alcohol and Drug Abuse Patient Records regulations: The Federal rules restrict any use of the information to criminally investigate or prosecute any alcohol or drug abuse patient.[facility] HospitalIn the event this information is protected by the Federal Confidentiality of Alcohol and Drug Abuse Patient Records regulations: The Federal rules restrict any use of the information to criminally investigate or prosecute any alcohol or drug abuse patient.[facility] HospitalIn the event this information is protected by the Federal Confidentiality of Alcohol and Drug Abuse Patient Records regulations: The Federal rules restrict any use of the information to criminally investigate or prosecute any alcohol or drug abuse patient.[facility] HospitalIn the event this information is protected by the Federal Confidentiality of Alcohol and Drug Abuse Patient Records regulations: The Federal rules restrict any use of the information to criminally investigate or prosecute any alcohol or drug abuse patient.[facility] HospitalIn the event this information is protected by the Federal Confidentiality of Alcohol and Drug Abuse Patient Records regulations: The Federal rules restrict any use of the information to criminally investigate or prosecute any alcohol or drug abuse patient.[facility] Reason for Visit (unrecogniz ed section and content) Reason Onset Date Comments Refill Request 05/28/2021 Reason Comments Refill Request Reason Onset Date Comments Refill Request 06/20/2021 Reason Onset Date Comments Refill Request 06/22/2021 Reason Comments Recheck Follow up Specialty Diagnoses / Procedures Referred By Contac t Referred To Contact Internal Medicine / INTERNAL MEDICINE Diagnoses 4 wk followup Procedures 4C EST Self Dali Rice APRN.BULK PLANT AGENT [address] [place] [address] Referral ID Status Reason Start Date Expiration Date V isits Requested Visits Authorized [id number] Closed Financial Clearance Not Required Patient Cleared - INN Insurance Found 06/29/2021 03/03/2022 1 1 Reason Onset Date Comments Refill Request 07/05/2021 Refill Request 07/07/2021 Specialty Diagnoses / Procedures Referred By Contac t Referred To Contact Internal Medicine / INTERNAL MEDICINE Diagnoses 4 week follow up Procedures OFFICE/OUTPATIENT ESTABLISHED MOD MDM 30-39 MIN 4C Velvet Kemp MD [address] [place] [address] Dali Rice 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 ASSOCIATE.BULK PLANT AGENT [address] [place] [address] Referral ID Status Reason Start Date Expiration Date Visits Re quested Visits Authorized [id number] Closed 07/26/2021 03/03/2022 1 1 Reason Comments [...] Date Comments Population Health Navigation Outreach 07/31/2022 [facility] care gap Reason Onset Date Comments Refill [...] CT Specialty Diagnoses / Procedures Referred By Reji winkler Referred To Contact [facility] Diagnoses Elevated lipase Elevated amylase RUQ pain Nausea Chronic diarrhea Procedures CT ABDOMEN WO IVCON CT ABDOMEN W/O CONTRAST Dali Rice, MANASA.BULK PLANT AGENT [address] [place] [address] [place] [address] Referral ID Status Reason Start Date Expiration Date V isits Requested Visits Authorized [id number] Closed Auto-Generate d Referral 02/01/2022 03/03/2023 1 [...] Reason Comments Appointment Reason Onset Date Comments [facility] Health Navigation Outreach 05/10/2023 [facility] Annual Wellness Visit Reason Comments Patient does not want Rx's sent to [facility] Reason Comments Appointment Appointment Cancelle d due [...] (HCC) Procedures CONSULT TO PULM/CRITICAL CARE OFFICE/OUTPATIENT NEW HIGH MDM 60 MINUTES Fernando Fernandez, MANASA.RECOVERY COLLECTOR [address] [place] [address] Referral ID Status Reason Start Date Expiration Date V isits Requested Visits Authorized [id number] Closed PCP Requested Referral 06/10/2023 06/09/2024 1 [...] Service Pr ogress NotePATIENT NAME: Leyda LopezMRN: [id number] OF SERVICE: April 29, 2023TIME: 5:05 PMPATIENT [...] BILATERAL RADEX HAND MINIMUM 3 VIEWS Mari Martinez, 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 ASSOCIATE.BULK PLANT AGENT [address] [place] [address] [place] [address] Referral ID Status Reason Start Date Expiration Date V isits Requested Visits Authorized [id number] Closed Auto-Generate d Referral 04/29/2023 05/28/2024 1 1 Reason Comments Recheck HTN follow up Reason Comments Results Bench Technician - Other Appointment Reason Onset Date Comments Refill Request 12/24/2023 Reason Comments Results Patient Question Medication Question Reason Onset Date Comments Refill Request 01/02/2024 Reason Onset Date Comments Refill Request 01/14/2024 Reason Comments Injections Reason Comments New Patient Evaluation Back Pain Specialty Diagnoses / Procedures Referred By Contac t Referred To Contact Pain Management Diagnoses Thoracic degenerative disc disease Pain syndrome, chronic Compression deformity of vertebra Procedures CONSULT TO PAIN MGT OFFICE/OUTPATIENT NEW HIGH MDM 60 MINUTES Dali Rice APRN.BULK PLANT AGENT [address] [place] [address] Referral ID Status Reason Start Date Expiration Date V isits Requested Visits Authorized [id number] Closed PCP Requested Referral 11/06/2023 11/05/2024 1 [...] Request 05/04/2024 Reason Comments Transition Of Care [facility] 05/01/24-05/03/24: COPD exacerbation Reason Comments Handicap Placard Request DME Requests Reason Comments [facility] - request from patient . Reason Comments Opened In Error Reason Onset Date Comments Refill Request 06/01/2024 Reason Onset Date Comments Refill Request 06/14/2024 Reason Onset Date Comments Refill Request 06/17/2024 Reason Comments Recheck 3 month follow up Reason Comments Results, Lab Reason Onset Date Comments Refill Request 07/06/2024 Reason Comments order for nebulizer supplies Specialty Diagnoses / Procedures Referred By Contac t Referred To Contact CT IMAGING Diagnoses Memory change Procedures CT BRAIN WO IVCON CT HEAD/BRAIN W/O CONTRAST MATERIAL Dali Rice APRN.BULK PLANT AGENT [address] [place] [address] Phone: tel: fax: [place] [phone] Referral ID Status Reason Start Date Expiration Date V isits Requested Visits Authorized [id number] Closed Auto-Generate d Referral 06/29/2024 07/29/2025 1 1 Reason Onset Date Comments Refill Request 07/17/2024 Reason Comments Request for information from Jeramy navarro sychologist Reason Comments home health calling Reason Comments Jail Plan of Care Medication Issues Reason Comments OT POC Blood Pressure Check Reason Comments verbal orders Reason Comments drug to drug interactions, duplicate the rapy Reason Comments ER F/U [facility] 07/26/24-08/05/24-S OB & bacteremia; 08/06/24-Alt LOC Reason Comments PT plan of care Care Teams (unrecognized sec tion and content) 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 Relationship Specialty Start Date End Date Velvet Palacio MD [address] [place], [place] [id number] PCP - General Internal Medicine 06/01/16 Juan Hillman, carpenter's assistantBdc Manager Internal Medicine 11/08/20 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 Relationship Specialty Start Date End Date Velvet Palacio MD [address] [facility] [place] [address] PCP - General Internal Medicine 06/01/16 Juan Hillman, carpenter's assistantBdc Manager Internal Medicine 11/08/20 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 Relationship Specialty Start Date End Date Velvet Palacio MD [address] [facility] [place] [address] PCP - General Internal Medicine 06/01/16 Juan Hillman, carpenter's assistantBdc Manager Internal Medicine 11/08/20 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 Relationship Specialty Start Date End Date Velvet Palacio MD [address] [facility] [place] [address] PCP - General Internal Medicine 06/01/16 Juan Hillman, carpenter's assistantBdc Manager Internal Medicine 11/08/20 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 Relationship Specialty Start Date End Date Velvet Palacio MD [address] [facility] [place] [address] PCP - General Internal Medicine 06/01/16 Juan Hillman, carpenter's assistantBdc Manager Internal Medicine 11/08/20 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 Relationship Specialty Start Date End Date Velvet Palacio MD [address] [facility] [place] [address] PCP - General Internal Medicine 06/01/16 Juan Hillman, carpenter's assistantBdc Manager Internal Medicine 11/08/20 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 Relationship Specialty Start Date End Date Velvet Palacio MD [address] [facility] [place] [address] PCP - General Internal Medicine 06/01/16 Juan Hillman, carpenter's assistantBdc Manager Internal Medicine 11/08/20 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 Relationship Specialty Start Date End Date Velvet Palacio MD [address] [facility] [place] [address] PCP - General Internal Medicine 06/01/16 Juan Hillman, carpenter's assistantBdc Manager Internal Medicine 11/08/20 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 Relationship Specialty Start Date End Date Velvet Palacio MD [address] [place] [address] PCP - General Internal Medicine 06/01/16 Juan Hillman, carpenter's assistantBdc Manager Internal Medicine 11/08/20 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 Relationship Specialty Start Date End Date Velvet Palacio MD [address] [place] [address] PCP - General Internal Medicine 06/01/16 Juan Hillman, carpenter's assistantBdc Manager Internal Medicine 11/08/20 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 Relationship Specialty Start Date End Date Velvet Palacio MD [address] [place] [address] PCP - General Internal Medicine 06/01/16 Juan Hillman, carpenter's assistantBdc Manager Internal Medicine 11/08/20 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 Relationship Specialty Start Date End Date Velvet Palacio MD [address] [place] [address] PCP - General Internal Medicine 06/01/16 Juan Hillman, carpenter's assistantBdc Manager Internal Medicine 11/08/20 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 Relationship Specialty Start Date End Date Velvet Palacio MD [address] [place] [address] PCP - General Internal Medicine 06/01/16 Juan Hillman, carpenter's assistantBdc Manager Internal Medicine 11/08/20 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 Relationship Specialty Start Date End Date Velvet Palacio MD [address] [place] [address] PCP - General Internal Medicine 06/01/16 Juan Hillman, carpenter's assistantBdc Manager Internal Medicine 11/08/20 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 Relationship Specialty Start Date End Date Velvet Palacio MD [address] [place] [address] PCP - General Internal Medicine 06/01/16 Juan Hillman, carpenter's assistantBdc Manager Internal Medicine 11/08/20 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 Relationship Specialty Start Date End Date Velvet Palacio MD [address] [place] [address] PCP - General Internal Medicine 06/01/16 Juan Hillman, carpenter's assistantBdc Manager Internal Medicine 11/08/20 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 Relationship Specialty Start Date End Date Velvet Palacio MD [address] [place] [address] PCP - General Internal Medicine 06/01/16 Hilda Chu, RN [address] [facility] [place] [address] Bdc Manager 11/08/20 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 Relationship Specialty Start Date End Date Velvet Palacio MD [address] [place] [address] PCP - General Internal Medicine 06/01/16 Hilda Chu, RN [address] [facility] [place] [address] Bdc Manager 11/08/20 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 Relationship Specialty Start Date End Date Velvet Palacio MD [address] [place] [address] PCP - General Internal Medicine 06/01/16 Hilda Chu, RN [address] [facility] [place] [address] Bdc Manager 11/08/20 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 Relationship Specialty Start Date End Date Velvet Palacio MD [address] [place] [address] PCP - General Internal Medicine 06/01/16 Hilda Chu, RN [address] [facility] [place] [address] Bdc Manager 11/08/20 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 Relationship Specialty Start Date End Date Velvet Palacio MD [address] [place] [address] PCP - General Internal Medicine 06/01/16 Kady Martinez, carpenter's assistantBdc Manager Internal Medicine 11/08/20 01/02/22 Hilda Chu, RN [address] [facility] [place] [address] Bdc Manager 11/08/20 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 Relationship Specialty Start Date End Date Velvet Palacio MD [address] [place] [address] PCP - General Internal Medicine 06/01/16 Hilda Chu, RN [address] [facility] [place] [address] Bdc Manager 11/08/20 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 Relationship Specialty Start Date End Date Velvet Palacio MD [address] [place] [address] PCP - General Internal Medicine 06/01/16 Hilda Chu, RN [address] [facility] [place] [address] Bdc Manager 01/02/22 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 Relationship Specialty Start Date End Date Velvet Palacio MD [address] [place] [address] PCP - General Internal Medicine 06/01/16 Hilda Chu, RN [address] [facility] [place] [address] Bdc Manager 01/02/22 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 Relationship Specialty Start Date End Date Velvet Palacio MD [address] [place] [address] PCP - General Internal Medicine 06/01/16 Hilda Chu, RN [address] [facility] [place] [address] Bdc Manager 01/02/22 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 Relationship Specialty Start Date End Date Velvet Palacio MD [address] [place] [address] PCP - General Internal Medicine 06/01/16 Hilda Chu, RN [address] [facility] [place] [address] Bdc Manager 01/02/22 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 Relationship Specialty Start Date End Date Velvet Palacio MD [address] [place] [address] PCP - General Internal Medicine 06/01/16 Hilda Chu, RN [address] [facility] [place] [address] Bdc Manager 01/02/22 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 Relationship Specialty Start Date End Date Velvet Palacio MD [address] [place] [address] PCP - General Internal Medicine 06/01/16 Hilad Chu, RN [address] [facility] [place] [address] Bdc Manager 01/02/22 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 Relationship Specialty Start Date End Date Velvet Palacio MD [address] [place] [address] PCP - General Internal Medicine 06/01/16 Hilda Chu, RN [address] [facility] [place] [address] Bdc Manager 01/02/22 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 Relationship Specialty Start Date End Date Velvet Palacio MD [address] [place] [address] PCP - General Internal Medicine 06/01/16 Hilda Chu, RN [address] [facility] [place] [address] Bdc Manager 01/02/22 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 Relationship Specialty Start Date End Date Velvet Palacio MD [address] [place] [address] PCP - General Internal Medicine 06/01/16 Hilda Chu, RN [address] [facility] [place] [address] Bdc Manager 01/02/22 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 Relationship Specialty Start Date End Date Velvet Palacio MD [address] [place] [address] PCP - General Internal Medicine 06/01/16 Hilda Chu RN [address] [facility] [place] [address] Bdc Manager 01/02/22 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 Relationship Specialty Start Date End Date Velvet Palacio MD [address] [place] [address] PCP - General Internal Medicine 08/15/22 Genia Nuñez, RICARDO [address] [facility] [place] [address] Bdc Manager Unspecified 08/01/22 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 Relationship Specialty Start Date End Date Velvet Palacio MD [address] [place] [address] PCP - General Internal Medicine 08/15/22 Genia Nuñez, RICARDO [address] [facility] [place] [address] Bdc Manager Unspecified 08/01/22 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 Relationship Specialty Start Date End Date Velvet Palacio MD [address] [place] [address] PCP - General Internal Medicine 08/15/22 Genia Nuñez, RICARDO [address] [facility] [place] [address] Bdc Manager Unspecified 08/01/22 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 Relationship Specialty Start Date End Date Velvet Palacio MD [address] [place] [address] PCP - General Internal Medicine 08/15/22 Genia Nuñez RN [address] [facility] [place] [address] Bdc Manager Unspecified 08/01/22 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 Relationship Specialty Start Date End Date Velvet Palacio MD [address] [place] [address] PCP - General Internal Medicine 08/15/22 Genia Nuñez, RN [address] [facility] [place] [address] Bdc Manager Unspecified 08/01/22 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 Relationship Specialty Start Date End Date Velvet Palacio MD [address] [place] [address] PCP - General Internal Medicine 08/15/22 Genia Nuñez, RN [address] [facility] [place] [address] Bdc Manager Unspecified 08/01/22 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 Relationship Specialty Start Date End Date Vevlet Palacio MD [address] [place] [address] PCP - General Internal Medicine 08/15/22 Genia Nuñez, RN [address] [facility] [place] [address] Bdc Manager Unspecified 08/01/22 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 Relationship Specialty Start Date End Date Velvet Palacio MD [address] [place] [address] PCP - General Internal Medicine 08/15/22 Genia Nuñez, RN [address] [facility] [place] [address] Bdc Manager Unspecified 08/01/22 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 Relationship Specialty Start Date End Date Velvet Palacio MD [address] [place] [address] PCP - General Internal Medicine 08/15/22 Genia Nuñez, RN [address] [facility] [place] [address] Bdc Manager Unspecified 08/01/22 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 Relationship Specialty Start Date End Date Velvet Palacio MD [address] [place] [address] PCP - General Internal Medicine 08/15/22 Genia Nuñez, RN [address] [facility] [place] [address] Bdc Manager Unspecified 08/01/22 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 Relationship Specialty Start Date End Date Velvet Palacio MD [address] [place] [address] PCP - General Internal Medicine 08/15/22 Genia Nuñez, RICARDO [address] [facility] [place] [address] Bdc Manager Unspecified 08/01/22 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 Relationship Specialty Start Date End Date Velvet Palacio MD [address] [place] [address] PCP - General Internal Medicine 08/15/22 Genia Nuñez, RN [address] [facility] [place] [address] Bdc Manager Unspecified 08/01/22 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 Relationship Specialty Start Date End Date Velvet Palacio MD [address] [place] [address] PCP - General Internal Medicine 08/15/22 Genia Nuñez, RN [address] [facility] [place] [address] Bdc Manager Unspecified 08/01/22 Team Status: Active Member Role Status Dates Dr. Velvet Palacio MD Family Provider Active DALI RICE NP-Ange Primary Care Provider Active Team Status: Inactive Member Role Status Dates Dr. Sánchez Bhatti DO Emergency Provider Active DALI RICE NP-Ange Primary Care Provider Active Team Status: Inactive Member Role Status Dates Dr. Velvet Palacio MD Primary Care Provider Active Dr. Lukasz Rueda DO Attending Provider, Referring Provider, Emergency Provider Active 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 Relationship Specialty Start Date End Date Velvet Palacio MD [address] [place] [address] PCP - General Internal Medicine 08/15/22 Genia Nuñez, RN [address] [facility] [place] [address] Bdc Manager Unspecified 08/01/22 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 Relationship Specialty Start Date End Date Velvet Palacio MD [address] [place] [address] PCP - General Internal Medicine 06/01/16 08/02/22 Hilda Chu RN [address] [facility] [place] [address] Bdc Manager 01/02/2207/04 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 Relationship Specialty Start Date End Date Velvet Palacio MD [address] [place] [address] PCP - General Internal Medicine 06/01/16 08/02/22 Hilda Chu, RICARDO [address] [facility] [place] [address] Bdc Manager 01/02/2207/04 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 Relationship Specialty Start Date End Date Velvet Palacio MD [address] [place] [address] PCP - General Internal Medicine 08/15/22 Genia Nuñez, RN [address] [facility] [place] [address] Bdc Manager Unspecified 08/01/22 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 Relationship Specialty Start Date End Date Velvet Palacio MD [address] [place] [address] PCP - General Internal Medicine 08/15/22 Genia Nuñez, RN [address] [facility] [place] [address] Bdc Manager Unspecified 08/01/22 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 Relationship Specialty Start Date End Date Velvet Palacio MD [address] [place] [address] PCP - General Internal Medicine 08/15/22 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 Relationship Specialty Start Date End Date Velvet Palacio MD [address] [place] [address] PCP - General Internal Medicine 08/15/22 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 Relationship Specialty Start Date End Date Velvet Palacio MD [address] [place] [address] PCP - General Internal Medicine 08/15/22 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 Relationship Specialty Start Date End Date Velvet Palacio MD [address] [place] [address] PCP - General Internal Medicine 08/15/22 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 Relationship Specialty Start Date End Date Velvet Palacio MD [address] [place] [address] PCP - General Internal Medicine 08/15/22 Team Status: Active Member Role Status Dates DALI RICE , VINYL DIPPER-C Primary Care Provider Active Dr. Ness Yu MD Emergency Provider Active Dr. Himanshu Aldana MD Admit Provider, Attending Prov ider Active Team Status: Active Member Role Status Dates DALI OLDER , VINYL DIPPER-C Primary Care Provider Active Dr. Ness Yu MD Emergency Provider Active Dr. Himanshu Aldana MD Admit Provider, Attending Provider, Other Provider Active Team Status: Active Member Role Status Dates DALI OLDER , VINYL DIPPER-C Primary Care Provider Active Dr. Ness Yu MD Emergency Provider Active Dr. Himanshu Aldana MD Admit Provider, Other Provider Active Dr. Sid Hillman MD Attending Provider, Other Provi brian Active Team Status: Active Member Role Status Dates DALI OLDER , VINYL DIPPER-C Primary Care Provider Active Dr. Ness Yu MD Emergency Provider Active Dr. Himanshu Aldana MD Admit Provider, Other Provider Active Dr. Sid Hillman MD Attending Provider, Other Provi brian Active Dr. Merrick White MD Other Provider Active Team Status: Active Member Role Status Dates DALI RICE , VINYL DIPPER-C Primary Care Provider Active Dr. Ness Yu MD Emergency Provider Active Dr. Himanshu Aldana MD Admit Provider, Other Provider Active Dr. Merrick White MD Other Provider Active Dr. Linwood Joe DO Attending Provider, Other Provid er Active Dr. Sid Hillman MD Other Provider Active Team Status: Active Member Role Status Luciano RICE , VINYL DIPPER-C Primary Care Provider Active Dr. Ness Yu MD Emergency Provider Active Dr. Himanshu Aldana MD Admit Provider, Other Provider Active Dr. Linwood Joe DO Attending Provider, Other Provid er Active Dr. Sid Hillman MD Other Provider Active Dr. Merrick White MD Other Provider Active Team Status: Active Member Role Status Luciano RICE , VINYL DIPPER-C Primary Care Provider Active Dr. Ness Yu MD Emergency Provider Active Dr. Himanshu Aldana MD Admit Provider, Other Provider Active Dr. Linwood Joe DO Attending Provider, Other Provid er [...] Active Member Role Status Luciano RICE , VINYL DIPPER-C Primary Care Provider Active Dr. Ness Yu MD Emergency Provider Active Dr. Himanshu Aldana MD Admit Provider, Other Provider Active Dr. Linwood Joe DO Other Provider Active Dr. Sid [...] Inactive Member Role Status Luciano RICE , VINYL DIPPER-C Primary Care Provider Active Dr. Ness Yu MD Emergency Provider Active Dr. Himanshu Aldana MD Admit Provider, Other Provider Active Dr. Linwood Joe DO Attending Provider Active Dr. Sid [...] Dr. Rahul Jaimes MD Other Provider Active 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 Relationship Specialty Start Date End Date Velvet Palacio MD [address] [place] [address] PCP - General Internal Medicine 08/15/22 Team Status: Active Member Role Status Luciano RICE VINYL DIPPER-C Primary Care Provider Active Dr. Ness Yu MD Emergency Provider Active Dr. Himanshu Aldana MD Admit Provider, Other Provider Active Dr. Linwood Joe DO Referring Provider, Other Provid er [...] Member Role Status Dates DALI OLDER , VINYL DIPPER-C Primary Care Provider Active Dr. Zurdo Howard DO Emergency Provider Active Dr. Sid Hillman MD Admit Provider, A ttending Provider, Other Provider Active Team Status: Active Member Role Status Dates DALI OLDER , VINYL DIPPER-C Primary Care Provider Active Dr. Zurdo Howard DO Emergency Provider Active Dr. Sid Hillman MD Admit Provider, Attending Provi brian Active Team Status: Active Member Role Status Dates DALI OLDER , VINYL DIPPER-C Primary Care Provider Active Dr. Zurdo Howard DO Emergency Provider Active Dr. Sid Hillman MD Admit Provider, Other Provider Active Dr. Diana Bates MD Attending Provider, Other Provid er Active Team Status: Active Member Role Status Dates DALI OLDER , VINYL DIPPER-C Primary Care Provider Active Dr. Filiberto Ron MD Attending Provider Active Team Status: Inactive Member Role Status Dates DALI OLDER , VINYL DIPPER-C Primary Care Provider Active Dr. Zurdo Howard DO Emergency Provider Active Dr. Sid Hillman MD Admit Provider, Other Provider Active Dr. Diana Bates MD Attending Provider Active 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 Relationship Specialty Start Date End Date Velvet Palacio MD [address] [place] [address] PCP - General Internal Medicine 08/15/22 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 Relationship Specialty Start Date End Date Velvet Palacio MD [address] [place] [address] PCP - General Internal Medicine 08/15/22 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 Relationship Specialty Start Date End Date Velvet Palacio MD [address] [place] [address] PCP - General Internal Medicine 08/15/22 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 Relationship Specialty Start Date End Date Velvet Palacio MD [address] [place] [address] PCP - General Internal Medicine 08/15/22 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 Relationship Specialty Start Date End Date Velvet Palacio MD [address] [place] [address] PCP - General Internal Medicine 08/15/22 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 Relationship Specialty Start Date End Date Velvet Palacio MD [address] [place] [address] PCP - General Internal Medicine 08/15/22 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 Relationship Specialty Start Date End Date Velvet Palacio MD [address] [place] [address] PCP - General Internal Medicine 08/15/22 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 Relationship Specialty Start Date End Date Velvet Palacio MD [address] [place] [address] PCP - General Internal Medicine 08/15/22 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 Relationship Specialty Start Date End Date Velvet Palacio MD [address] [place] [address] PCP - General Internal Medicine 08/15/22 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 Relationship Specialty Start Date End Date Velvet Palacio MD [address] [place] [address] PCP - General Internal Medicine 08/15/22 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 Relationship Specialty Start Date End Date Velvet Palacio MD [address] [place] [address] PCP - General Internal Medicine 08/15/22 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 Relationship Specialty Start Date End Date Velvet Palacio MD [address] [place] [address] PCP - General Internal Medicine 08/15/22 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 Relationship Specialty Start Date End Date Velvet Palacio MD [address] [place] [address] PCP - General Internal Medicine 08/15/22 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 Relationship Specialty Start Date End Date Velvet Palacio MD [address] [place] [address] PCP - General Internal Medicine 08/15/22 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 Relationship Specialty Start Date End Date Velvet Palacio MD [address] [place] [address] PCP - General Internal Medicine 08/15/22 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 Relationship Specialty Start Date End Date Velvet Palacio MD [address] [place] [address] PCP - General Internal Medicine 08/15/22 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 Relationship Specialty Start Date End Date Velvet Palacio MD [address] [place] [address] PCP - General Internal Medicine 08/15/22 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 Relationship Specialty Start Date End Date Velvet Palacio MD [address] [place] [address] PCP - General Internal Medicine 08/15/22 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 Relationship Specialty Start Date End Date Velvet Palacio MD [address] [place] [address] PCP - General Internal Medicine 08/15/22 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 Relationship Specialty Start Date End Date Velvet Palacio MD [address] [place] [address] PCP - General Internal Medicine 08/15/22 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 Relationship Specialty Start Date End Date Velvet Palacio MD [address] [place] [address] PCP - General Internal Medicine 08/15/22 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 Relationship Specialty Start Date End Date Velvet Palacio MD [address] [place] [address] PCP - General Internal Medicine 08/15/22 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 Relationship Specialty Start Date End Date Velvet Palacio MD [address] [place] [address] PCP - General Internal Medicine 08/15/22 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 Relationship Specialty Start Date End Date Velvet Palacio MD [address] [place] [address] PCP - General Internal Medicine 08/15/22 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 Relationship Specialty Start Date End Date Velvet Palacio MD [address] [place] [address] PCP - General Internal Medicine 08/15/22 Genia Nuñez, RICARDO [address] [place] [address] Bdc Manager Unspecified 08/01/2204/04 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 Relationship Specialty Start Date End Date Velvet Palacio MD [address] [place] [address] PCP - General Internal Medicine 06/01/16 08/02/22 Kady Martinez RN Bdc Manager Internal Medicine 11/08/20 01/02/22 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 Relationship Specialty Start Date End Date Velvet Palacio MD [address] [place] [address] PCP - General Internal Medicine 08/15/22 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 Relationship Specialty Start Date End Date Velvet Palacio MD [address] [place] [address] PCP - General Internal Medicine 08/15/22 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 Relationship Specialty Start Date End Date Velvet Palacio MD [address] [place] [address] PCP - General Internal Medicine 08/15/22 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 Relationship Specialty Start Date End Date Velvet Palacio MD [address] [place] [address] PCP - General Internal Medicine 08/15/22 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 Relationship Specialty Start Date End Date Velvet Palacio MD [address] [place] [address] PCP - General Internal Medicine 08/15/22 Shelby Styles PA-C [address] [place], [place] [id number] [phone] Tub Operator Family Medicine 02/09/24 Dali Rice APRN.BULK PLANT AGENT [address] [place] [address] Tub Operator Internal Medicine 02/09/24 Ines Lopez PA-C [address] [place] [address] Tub Operator Family [facility] 02/09/24 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 Relationship Specialty Start Date End Date Velvet Palacio MD [address] [place] [address] PCP - General Internal Medicine 08/15/22 Shelby Styles PA-C [address] [place], [place] [id number] [phone] Tub Operator Family Medicine 02/09/24 Dali Rice APRN.BULK PLANT AGENT [address] [place] [address] Tub Operator Internal Medicine 02/09/24 Ines Lopez PA-C [address] [place] [address] Tub Operator Family [facility] 02/09/24 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 Relationship Specialty Start Date End Date Velvet Palacio MD [address] [place] [address] PCP - General Internal Medicine 08/15/22 Shelby Styles PA-C [address] [place], [place] [phone] Tub Operator Family Medicine 02/09/24 Dali Rice APRN.BULK PLANT AGENT [address] [place] [address] Tub Operator Internal Medicine 02/09/24 Ines Lopez PA-C [address] [place] [address] Tub Operator Family Medicine 02/09/24 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 Relationship Specialty Start Date End Date Velvet Palacio MD [address] [place] [address] PCP - General Internal Medicine 08/15/22 Shelby Styles PA-C [address] [place] [address] Tub Operator Family Medicine 02/09/24 Dali Rice APRN.BULK PLANT AGENT [address] [place] [address] Tub Operator Internal Medicine 02/09/24 Ines Lopez PA-C [address] [place] [address] Tub Operator Family Medicine 02/09/24 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 Relationship Specialty Start Date End Date Velvet Palacio MD [address] [place] [address] PCP - General Internal Medicine 08/15/22 Shelby Styles PA-C [address] [place] [address] Tub Operator Family Medicine 02/09/24 Dali Rice APRN.BULK PLANT AGENT [address] [facility] [place] [address] Tub Operator Internal Medicine 02/09/24 Ines Lopez PA-C [address] [place] [address] Tub Operator Family Medicine 02/09/24 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 Relationship Specialty Start Date End Date Velvet Palacio MD [address] [place] [address] PCP - General Internal Medicine 08/15/22 Shelby Styles PA-C [address] [place] [address] Tub Operator Family Medicine 02/09/24 Dali Rice APRN.BULK PLANT AGENT [address] [facility] [place] [address] Tub Operator Internal Medicine 02/09/24 Ines Lopez PA-C [address] [facility] [place] [address] [place] 02/09/24 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 Relationship Specialty Start Date End Date Velvet Palacio MD [address] [place] [address] PCP - General Internal Medicine 08/15/22 Shelby Styles PA-C [address] [place] [address] Tub Operator Family Medicine 02/09/24 Dali Rice APRN.BULK PLANT AGENT [address] [facility] [place] [address] Tub Operator Internal Medicine 02/09/24 Ines Lopez PA-C [address] [place] [address] Tub Operator Family Medicine 02/09/24 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 Relationship Specialty Start Date End Date Velvet Palacio MD [address] [place] [address] PCP - General Internal Medicine 08/15/22 Shelby Styles PA-C [address] [place], [place] [address] [phone] Tub Operator Family Medicine 02/09/24 Dali Rice APRN.BULK PLANT AGENT [address] [place] [address] Tub Operator Internal Medicine 02/09/24 Ines Lopez PA-C [address] [place] [address] Tub Operator Family [facility] 02/09/24 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 Relationship Specialty Start Date End Date Velvet Palacio MD [address] [place] [address] PCP - General Internal Medicine 08/15/22 Shelby Styles PA-C [address] [place] [address] Tub Operator Family Medicine 02/09/24 Dali Rice APRN.BULK PLANT AGENT [address] [place] [address] Tub Operator Internal Medicine 02/09/24 Ines Lopez PA-C [address] [place] [address] Tub Operator Family [facility] 02/09/24 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 Relationship Specialty Start Date End Date Velvet Palacio MD [address] [place] [address] PCP - General Internal Medicine 08/15/22 Shelby Styles PA-C [address] [place] [address] Tub Operator Family Medicine 02/09/24 Dali Rice APRN.BULK PLANT AGENT [address] [place] [address] Tub Operator Internal Medicine 02/09/24 Ines Lopez PA-C [address] [place] [address] Tub Operator Family Medicine 02/09/24 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 Relationship Specialty Start Date End Date Velvet Palacio MD [address] [place] [address] PCP - General Internal Medicine 08/15/22 Shelby Styles PA-C [address] [place] [address] Tub Operator Family Medicine 02/09/24 Dali Rice APRN.BULK PLANT AGENT [address] [place] [address] Tub Operator Internal Medicine 02/09/24 Ines Lopez PA-C [address] [place] [address] Tub Operator Family Medicine 02/09/24 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 Relationship Specialty Start Date End Date Velvet Palacio MD [address] [place] [address] PCP - General Internal Medicine 08/15/22 Shelby Styles PA-C [address] [place] [address] Tub Operator Family Medicine 02/09/24 Dali Rice APRN.BULK PLANT AGENT [address] [place] [address] Tub Operator Internal Medicine 02/09/24 Ines Lopez PA-C [address] [place] [address] Tub Operator Family Medicine 02/09/24 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 Relationship Specialty Start Date End Date Velvet Palacio MD [address] [place] [address] PCP - General Internal Medicine 08/15/22 Shelby Styles PA-C [address] [place] [address] Tub Operator Family Medicine 02/09/24 Dali Rice APRN.BULK PLANT AGENT [address] [place] [address] Tub Operator Internal Medicine 02/09/24 Ines Lopez PA-C [address] [place] [address] Tub Operator Family Medicine 02/09/24 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 Relationship Specialty Start Date End Date Velvet Palacio MD [address] [place] [address] PCP - General Internal Medicine 08/15/22 Shelby Styles PA-C [address] [place] [address] Tub Operator Family Medicine 02/09/24 Dali Rice APRN.BULK PLANT AGENT [address] [place] [address] Tub Operator Internal Medicine 02/09/24 Ines Lopez PA-C [address] [place] [address] Tub Operator Family Medicine 02/09/24 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 Relationship Specialty Start Date End Date Velvet Palacio MD [address] [place] [address] PCP - General Internal Medicine 08/15/22 Dali Rice APRN.BULK PLANT AGENT [address] [place] [address] Tub Operator Internal Medicine 02/09/24 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 Relationship Specialty Start Date End Date Velvet Palacio MD [address] [place] [address] PCP - General Internal Medicine 08/15/22 Dali Rice APRN.BULK PLANT AGENT [address] [place] [address] Tub Operator Internal Medicine 02/09/24 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 Relationship Specialty Start Date End Date Velvet Palacio MD [address] [place] [address] PCP - General Internal Medicine 08/15/22 Dali Rice APRN.BULK PLANT AGENT [address] [place] [address] Tub Operator Internal Medicine 02/09/24 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 Relationship Specialty Start Date End Date Velvet Palacio MD [address] [place] [address] PCP - General Internal Medicine 08/15/22 Dali Rice APRN.BULK PLANT AGENT [address] [place] [address] Tub Operator Internal Medicine 02/09/24 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 Relationship Specialty Start Date End Date Velvet Palacio MD [address] [place] [address] PCP - General Internal Medicine 08/15/22 Dali Rice APRN.BULK PLANT AGENT [address] [place] [address] Tub Operator Internal Medicine 02/09/24 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 Relationship Specialty Start Date End Date Velvet Palacio MD [address] [place] [address] PCP - General Internal Medicine 08/15/22 Dali Rice APRN.BULK PLANT AGENT [address] [place] [address] Tub Operator Internal Medicine 02/09/24 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 Relationship Specialty Start Date End Date Velvet Palacio MD [address] [place] [address] PCP - General Internal Medicine 08/15/22 Dali Rice APRN.BULK PLANT AGENT [address] [place] [address] Tub Operator Internal Medicine 02/09/24 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 Relationship Specialty Start Date End Date Velvet Palacio MD [address] [place] [address] PCP - General Internal Medicine 08/15/22 Dali Rice APRN.BULK PLANT AGENT [address] [place] [address] Tub Operator Internal Medicine 02/09/24 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 Relationship Specialty Start Date End Date Velvet Palacio MD [address] [facility] [place] [address] PCP - General Internal Medicine 08/15/22 Dali Rice APRN.BULK PLANT AGENT [address] [place] [address] Tub Operator Internal Medicine 02/09/24 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 Relationship Specialty Start Date End Date Velvet Palacio MD [address] [facility] [place] [address] PCP - General Internal Medicine 08/15/22 Dali Rice APRN.BULK PLANT AGENT [address] [facility] [address] Tub Operator Internal Medicine 02/09/24 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 Relationship Specialty Start Date End Date Velvet Palacio MD [address] [facility] [place] [address] PCP - General Internal Medicine 08/15/22 Dali Rice APRN.BULK PLANT AGENT [address] [place] [address] Tub Operator Internal Medicine 02/09/24 Team Status: Active Member Role Status Dates DALI RICE , VINYL DIPPER-C Primary Care Provider Active Team Status: Inactive Member Role Status Dates DALI RICE , VINYL DIPPER-C Primary Care Provider Active St art: March 30, 2024 End: March 30, 2024 Dr. Lux Hurley MD Attending Provider Active Start: March 30, 2024 End: March 30, 2024 Dr. Lux Hurley MD Referring Provider Active Start: March 30, 2024 End: March 30, 2024 Team Status: Inactive Member Role Status Luciano RICE , VINYL DIPPER-C Primary Care Provider Active St art: May 01, 2024 End: May 03, 2024 Dr. Anival Mejía DO Emergency Provider Active Start: May 01, 2024 End: May 03, 2024 Dr. Linwood Joe DO Admit Provider Active Star t: May 01, 2024 End: May 03, 2024 Dr. Linwood Joe DO Other Provider Active Star t: May 01, 2024 End: May 03, 2024 Dr. Himanshu Aldana MD Attending Provider Active Start: May 01, 2024 End: May 03, 2024 Dr. Himanshu Aldana MD Referring Provider Active Start: May 01, 2024 End: May 03, 2024 Team Status: Active Member Role Status Luciano RICE VINYL DIPPER-C Primary Care Provider Active St art: May 01, 2024 Dr. Anival Mejía DO Emergency Provider Active Start: May 01, 2024 Dr. Linwood Joe DO Admit Provider Active Star t: May 01, 2024 Dr. Linwood Joe DO Attending Provider Active Start: May 01, 2024 Dr. Linwood Joe DO Other Provider Active Star t: May 01, 2024 Team Status: Active Member Role Status Dates DALI RICE , VINYL DIPPER-C Primary Care Provider Active St art: May 02, 2024 Dr. Anival Mejía DO Emergency Provider Active Start: May 02, 2024 Dr. Linwood Joe DO Admit Provider Active Star t: May 02, 2024 Dr. Linwood Joe DO Other Provider Active Star t: May 02, 2024 Dr. Himanshu Aldana MD Attending Provider Active Start: May 02, 2024 Dr. Himanshu Aldana MD Other Provider Active St art: May 02, 2024 Team Status: Active Member Role Status Dates DALI RICE , VINYL DIPPER-C Primary Care Provider Active St art: May 03, 2024 Dr. Anival Mejía , Emergency Provider Active Start: May 03, 2024 Dr. Linwood Joe DO Admit Provider Active Star t: May 03, 2024 Dr. Linwood Joe DO Other Provider Active Star t: May 03, 2024 Dr. Himanshu [place] MD Attending Provider Active Start: May 03, 2024 Dr. Himanshu Aldana MD Other Provider Active St art: May 03, 2024 Team Status: Active Member Role Status Dates DALI RICE VINYL DIPPER-C Primary Care Provider Active St art: July 26, 2024 Dr. Alisa Guaman DO Emergency Provider Active Start: July 26, 2024 Dr. Linwood Joe DO Admit Provider Active Star t: July 26, 2024 Dr. Linwood Joe DO Attending Provider Active Start: July 26, 2024 Team Status: Active Member Role Status Dates DALI RICE VINYL DIPPER-C Primary Care Provider Active St art: July 26, 2024 Dr. Alisa Guaman DO Emergency Provider Active Start: July 26, 2024 Dr. Linwood Joe DO Attending Provider Active Start: July 26, 2024 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 Relationship Specialty Start Date End Date Velvet Palacio MD [address] [place], [place] [address] PCP - General Internal Medicine 08/15/22 Dali Rice APRN.CNP [address] [place] [address] Tub Operator Internal Medicine 02/09/24 Team Status: Inactive Member Role Status Dates DALI RICE , VINYL DIPPER-C Primary Care Provider Active St art: July 26, 2024 End: August 05, 2024 Dr. Alisa Guaman DO Emergency Provider Active Start: July 26, 2024 End: August 05, 2024 Dr. Linwood Joe , DO Admit Provider Active Star t: July 26, 2024 End: August 05, 2024 Dr. Linwood Joe DO Attending Provider Active Start: July 26, 2024 End: August 05, 2024 Dr. Linwood Joe DO Other Provider Active Star t: July 26, 2024 End: August 05, 2024 Dr. Dolly Daniels MD Other Provider Active St art: July 26, 2024 End: August 05, 2024 Dr. Sid Hillman MD Other Provider Active Sta rt: July 26, 2024 End: August 05, 2024 Dr. Sam Graves MD Other Provider Active Star t: July 26, 2024 End: August 05, 2024 Dr. Kalyan Bass MD Other Provider Active Start: July 26, 2024 End: August 05, 2024 Dr. Merrick White MD Other Provider Active Start: July 26, 2024 End: August 05, 2024 Team Status: Active Member Role Status Luciano RICE VINYL DIPPER-C Primary Care Provider Active St art: July 27, 2024 Dr. Alisa Guaman DO Emergency Provider Active Start: July 27, 2024 Dr. Linwood Joe DO Admit Provider Active Star t: July 27, 2024 Dr. Linwood Joe DO Other Provider Active Star t: July 27, 2024 Dr. Kalyan Bass MD Attending Provider Active Start: July 27, 2024 Dr. Kalyan Bass MD Other Provider Active Start: July 27, 2024 Dr. Dolly Daniels MD Other Provider Active St art: July 27, 2024 Team Status: Active Member Role Status Luciano RICE VINYL DIPPER-C Primary Care Provider Active St art: July 27, 2024 Dr. Alisa Guaman DO Emergency Provider Active Start: July 27, 2024 Dr. Linwood Joe DO Admit Provider Active Star t: July 27, 2024 Dr. Linwood Joe DO Other Provider Active Star t: July 27, 2024 Dr. Kalyan Bass MD Other Provider Active Start: July 27, 2024 Dr. Dolly Daniels MD Attending Provider Active Start: July 27, 2024 Dr. Dolly Daniels MD Other Provider Active St art: July 27, 2024 Team Status: Active Member Role Status Luciano RICE VINYL DIPPER-C Primary Care Provider Active St art: July 28, 2024 Dr. Alisa Guaman , DO Emergency Provider Active Start: July 28, 2024 Dr. Linwood Joe , DO Admit Provider Active Star t: July 28, 2024 Dr. Linwood Joe , DO Other Provider Active Star t: July 28, 2024 Dr. Kalyan Bass MD Attending Provider Active Start: July 28, 2024 Dr. Kalyan Bass MD Other Provider Active Start: July 28, 2024 Dr. Dolly Daniels MD Other Provider Active St art: July 28, 2024 Team Status: Active Member Role Status Luciano RICE VINYL DIPPER-C Primary Care Provider Active St art: July 28, 2024 Dr. Alisa Guaman DO Emergency Provider Active Start: July 28, 2024 Dr. Linwood Joe DO Admit Provider Active Star t: July 28, 2024 Dr. Linwood Joe DO Other Provider Active Star t: July 28, 2024 Dr. Kalyan Bass MD Other Provider Active Start: July 28, 2024 Dr. Dolly Daniels MD Attending Provider Active Start: July 28, 2024 Dr. Dolly Daniels MD Other Provider Active St art: July 28, 2024 Team Status: Active Member Role Status Luciano RICE VINYL DIPPER-C Primary Care Provider Active St art: July 29, 2024 Dr. Alisa Guaman , DO Emergency Provider Active Start: July 29, 2024 Dr. Linwood Joe DO Admit Provider Active Star t: July 29, 2024 Dr. Linwood Joe DO Other Provider Active Star t: July 29, 2024 Dr. Kalyan Bass MD Attending Provider Active Start: July 29, 2024 Dr. Kalyan Bass MD Other Provider Active Start: July 29, 2024 Dr. Dolly Daniels MD Other Provider Active St art: July 29, 2024 Team Status: Active Member Role Status Luciano RICE , VINYL DIPPER-C Primary Care Provider Active St art: July 29, 2024 Dr. Alisa Guaman , Emergency Provider Active Start: July 29, 2024 Dr. Linwood Joe DO Admit Provider Active Star t: July 29, 2024 Dr. Linwood Joe DO Other Provider Active Star t: July 29, 2024 Dr. Kalyan Bass MD Other Provider Active Start: July 29, 2024 Dr. Dolly Daniels MD Attending Provider Active Start: July 29, 2024 Dr. Dolly Daniels MD Other Provider Active St art: July 29, 2024 Team Status: Active Member Role Status Luciano RICE VINYL DIPPER-C Primary Care Provider Active St art: July 30, 2024 Dr. Alisa Guaman , Emergency Provider Active Start: July 30, 2024 Dr. Linwood Joe DO Admit Provider Active Star t: July 30, 2024 Dr. Linwood Joe DO Other Provider Active Star t: July 30, 2024 Dr. Kalyan Bass MD Other Provider Active Start: July 30, 2024 Dr. Dolly Daniels MD Attending Provider Active Start: July 30, 2024 Dr. Dolly Daniels MD Other Provider Active St art: July 30, 2024 Dr. Merrick White MD Other Provider Active Start: July 30, 2024 Team Status: Active Member Role Status Luciano RICE , VINYL DIPPER-C Primary Care Provider Active St art: July 30, 2024 Dr. Sam Graves MD Attending Provider Active Start: July 30, 2024 Team Status: Active Member Role Status Luciano RICE , VINYL DIPPER-C Primary Care Provider Active St art: July 31, 2024 Dr. Alisa Guaman DO Emergency Provider Active Start: July 31, 2024 Dr. Linwood Joe DO Admit Provider Active Star t: July 31, 2024 Dr. Linwood Joe DO Other Provider Active Star t: July 31, 2024 Dr. Kalyan Bass MD Other Provider Active Start: July 31, 2024 Dr. Dolly Daniels MD Attending Provider Active Start: July 31, 2024 Dr. Dolly Daniels MD Other Provider Active St art: July 31, 2024 Dr. Merrick White MD Other Provider Active Start: July 31, 2024 Dr. Sam Graves MD Other Provider Active Star t: July 31, 2024 Team Status: Active Member Role Status Dates DALI RICE , VINYL DIPPER-C Primary Care Provider Active St art: July 31, 2024 Dr. Alisa Guaman , Emergency Provider Active Start: July 31, 2024 Dr. Lniwood Joe , Admit Provider Active Star t: July 31, 2024 Dr. Linwood Joe DO Other Provider Active Star t: July 31, 2024 Dr. Kalyan Bass MD Other Provider Active Start: July 31, 2024 Dr. Dolly Daniels MD Other Provider Active St art: July 31, 2024 Dr. Merrick White MD Other Provider Active Start: July 31, 2024 Dr. Sam Graves MD Attending Provider Active Start: July 31, 2024 Dr. Sam Graves MD Other Provider Active Star t: July 31, 2024 Team Status: Active Member Role Status Dates DALI RICE VINYL DIPPER-C Primary Care Provider Active St art: August 01, 2024 Dr. Alisa Guaman DO Emergency Provider Active Start: August 01, 2024 Dr. Linwood Joe DO Admit Provider Active Star t: August 01, 2024 Dr. Linwood Joe DO Other Provider Active Star t: August 01, 2024 Dr. Kalyan Bass MD Other Provider Active Start: August 01, 2024 Dr. Merrick White MD Other Provider Active Start: August 01, 2024 Dr. Sam Graves MD Other Provider Active Star t: August 01, 2024 Dr. Sid Hillman MD Attending Provider Active Start: August 01, 2024 Dr. Sid Hillman MD Other Provider Active Sta rt: August 01, 2024 Dr. Dolly Daniels MD Other Provider Active St art: August 01, 2024 Team Status: Active Member Role Status Dates DALI RICE VINYL DIPPER-C Primary Care Provider Active St art: August 01, 2024 Dr. Alisa Guaman DO Emergency Provider Active Start: August 01, 2024 Dr. Linwood Joe DO Admit Provider Active Star t: August 01, 2024 Dr. Linwood Joe DO Other Provider Active Star t: August 01, 2024 Dr. Kalyan Bass MD Other Provider Active Start: August 01, 2024 Dr. Merrick White MD Other Provider Active Start: August 01, 2024 Dr. Sam Graves MD Attending Provider Active Start: August 01, 2024 Dr. Sam Graves MD Other Provider Active Star t: August 01, 2024 Dr. Sid Hillman MD Other Provider Active Sta rt: August 01, 2024 Dr. Dolly Daniels MD Other Provider Active St art: August 01, 2024 Team Status: Active Member Role Status Dates DALI RICE VINYL DIPPER-C Primary Care Provider Active St art: August 02, 2024 Dr. Alisa Guaman DO Emergency Provider Active Start: August 02, 2024 Dr. Linwood Joe DO Admit Provider Active Star t: August 02, 2024 Dr. Linwood Joe DO Other Provider Active Star t: August 02, 2024 Dr. Sid Hillman MD Other Provider Active Sta rt: August 02, 2024 Dr. Dolly Daniels MD Other Provider Active St art: August 02, 2024 Dr. Sam Graves MD Attending Provider Active Start: August 02, 2024 Dr. Sam Graves MD Other Provider Active Star t: August 02, 2024 Dr. Kalyan Bass MD Other Provider Active Start: August 02, 2024 Dr. Merrick White MD Other Provider Active Start: August 02, 2024 Team Status: Active Member Role Status Dates DALI RICE VINYL DIPPER-C Primary Care Provider Active St art: August 02, 2024 Dr. Alisa Guaman DO Emergency Provider Active Start: August 02, 2024 Dr. Linwood Joe DO Admit Provider Active Star t: August 02, 2024 Dr. Linwood Joe DO Other Provider Active Star t: August 02, 2024 Dr. Sid Hillman MD Attending Provider Active Start: August 02, 2024 Dr. Sid Hillman MD Other Provider Active Sta rt: August 02, 2024 Dr. Dolly Daniels MD Other Provider Active St art: August 02, 2024 Dr. Sam Graves MD Other Provider Active Star t: August 02, 2024 Dr. Kalyan Bass MD Other Provider Active Start: August 02, 2024 Dr. Merrick White MD Other Provider Active Start: August 02, 2024 Team Status: Active Member Role Status Dates DALI RICE , VINYL DIPPER-C Primary Care Provider Active St art: August 03, 2024 Dr. Alisa Guaman DO Emergency Provider Active Start: August 03, 2024 Dr. Linwood Joe DO Admit Provider Active Star t: August 03, 2024 Dr. Linwood Joe DO Attending Provider Active Start: August 03, 2024 Dr. Linwood Joe DO Other Provider Active Star t: August 03, 2024 Dr. Dolly Daniels MD Other Provider Active St art: August 03, 2024 Dr. Sam Graves MD Other Provider Active Star t: August 03, 2024 Dr. Kalyan Bass MD Other Provider Active Start: August 03, 2024 Dr. Merrick White MD Other Provider Active Start: August 03, 2024 Dr. Sid Hillman MD Other Provider Active Sta rt: August 03, 2024 Team Status: Active Member Role Status Dates DALI RICE VINYL DIPPER-C Primary Care Provider Active St art: August 04, 2024 Dr. Alisa Guaman DO Emergency Provider Active Start: August 04, 2024 Dr. Linwood Joe DO Admit Provider Active Star t: August 04, 2024 Dr. Linwood Joe DO Attending Provider Active Start: August 04, 2024 Dr. Linwood Joe DO Other Provider Active Star t: August 04, 2024 Dr. Dolly Daniels MD Other Provider Active St art: August 04, 2024 Dr. Sam Graves MD Other Provider Active Star t: August 04, 2024 Dr. Kalyan Bass MD Other Provider Active Start: August 04, 2024 Dr. Merrick White MD Other Provider Active Start: August 04, 2024 Dr. Sid Hillman MD Other Provider Active Sta rt: August 04, 2024 Team Status: Active Member Role Status Dates DALI RICE VINYL DIPPER-C Primary Care Provider Active St art: August 05, 2024 Dr. Alisa Guaman DO Emergency Provider Active Start: August 05, 2024 Dr. Linwood Joe DO Admit Provider Active Star t: August 05, 2024 Dr. Linwood Joe DO Attending Provider Active Start: August 05, 2024 Dr. Linwood Joe DO Other Provider Active Star t: August 05, 2024 Dr. Dolly Daniels MD Other Provider Active St art: August 05, 2024 Dr. Sid Hillman MD Other Provider Active Sta rt: August 05, 2024 Dr. Sam Graves MD Other Provider Active Star t: August 05, 2024 Dr. Kalyan Bass MD Other Provider Active Start: August 05, 2024 Dr. Merrick White MD Other Provider Active Start: August 05, 2024 Team Status: Inactive Member Role Status Dates DALI RICE VINYL DIPPER-C Primary Care Provider Active St art: August 06, 2024 End: August 06, 2024 Dr. Pito Lopez DO Emergency Provider Active Start: August 06, 2024 End: August 06, 2024 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 Relationship Specialty Start Date End Date Velvet Palacio MD [address] [place] [address] PCP - General Internal Medicine 08/15/22 Dali Rice APRN.BULK PLANT AGENT [address] [place] [address] Tub Operator Internal Medicine 02/09/24 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 Relationship Specialty Start Date End Date Velvet Palacio MD [address] [place], [place] [address] PCP - General Internal Medicine 08/15/22 Dali Rice APRN.BULK PLANT AGENT [address] [place], [place] [address] [facility] Internal Medicine 02/09/24 Team Status: Active Member Role Status Dates DALI RICE , VINYL DIPPER-C Primary Care Provider Active St art: July 27, 2024 Dr. Alisa Guaman DO Emergency Provider Active Start: July 27, 2024 Dr. Linwood Joe DO Admit Provider Active Star t: July 27, 2024 Dr. Linwood Joe DO Other Provider Active Star t: July 27, 2024 Dr. Kalyan Bass MD Attending Provider Active Start: July 27, 2024 Dr. Kalyan Bass MD Other Provider Active Start: July 27, 2024 Dr. Dolly Daniels MD Other Provider Active St art: July 27, 2024 Dr. Himanshu Aldana MD Referring Provider Active Start: July 27, 2024 Team Status: Active Member Role Status Dates Dr. Demetri Monson MD Attending Provider Active Start: August 03, 2024 Dr. Sid Hillman MD Referring Provider Active Start: August 03, 2024 Team Status: Inactive Member Role Status Dates DALI KRYSTAL , VINYL DIPPER-C Primary Care Provider Active St art: August 06, 2024 End: August 06, 2024 Dr. Pito Lopez DO Attending Provider Active Start: August 06, 2024 End: August 06, 2024 Dr. Pito Lopez DO Emergency Provider Active Start: August 06, 2024 End: August 06, 2024 Team Status: Inactive Member Role Status Dates DALI OLDER , VINYL DIPPER-C Primary Care Provider Active St art: August 14, 2024 End: August 14, 2024 Dr. Merrick White MD Attending Provider Active Start: August 14, 2024 End: August 14, 2024 Dr. Merrick White MD Referring Provider Active Start: August 14, 2024 End: August 14, 2024 Goals (unrecognized section and content) Goals may [...] BE BASED ON THE PRIMARY CLINICAL RECORDS. [employer] [facility]. provides no warranty or guarantee of the accuracy or completeness of information in this document.
[2024-08-18] VITALS (25 sets, daily range): BP systolic 115–171; BP diastolic 74–106; PULSE 82–94; RESP 12–21; TEMP 36.7–36.8; O2SAT 93–100; BMI 30.3
[2024-08-18] MEDS: Vancomycin HCl 1,750 MG in 0.9% Normal Saline (500mL Bag) 500 ML 250 MG IV (00:47)
[2024-08-18] MEDS: 0.9% Normal Saline (250mL Bag) 250 ML 15 ML IV (00:48)
--- NOTE | 2024-08-18 01:39 | PCM.RX.CS ---
Consult Antibiotic Management Pharmacy has been consulted to manage selected antibiotic: Vancomycin Type of Intervention Type of Consult: New start Labs Labs: Sodium 145 mmol/L (133-145) 08/17/24 14:55 Potassium 3.7 mmol/L (3.3-5.1) 08/17/24 14:55 Chloride 103 mmol/L (98-108) 08/17/24 14:55 Carbon Dioxide 30.5 mmol/L (21.0-32.0) 08/17/24 14:55 Anion Gap 11 (5-15) 08/17/24 14:55 BUN 20 mg/dL (4-19) H 08/17/24 14:55 Creatinine 1.41 mg/dL (0.70-1.20) H 08/17/24 14:55 Est GFR (MDRD) Non-Af 42 (>60) L 08/17/24 14:55 BUN/Creatinine Ratio 14.3 RATIO (10-20) 08/17/24 14:55 Glucose 91 mg/dL (70-99) 08/17/24 14:55 Dosing Weight Weight used for dosin.8 kg Estimated Creatinine Clearance Estimated Creatinine Clearance: 35.27 Goal Trough Goal Trough: 15-20 mcg/mL Pharmacy Plan for Drug Dosing Pharmacy Plan for Drug Dosing: Pharmacy Service will continue to monitor and adjust dosing as required. 1750MG LOADING DOSE GIVEN 08/18 @ 0047. START 1GM Q24H AND DRAW TROUGH PRIOR TO 3RD DOSE Follow-Up Labs Follow-Up Labs: Trough: Vancomycin Date/Time Labs Ordered Labs to be done on [date and time ordered]: 08/20 @ 0030
[2024-08-18] MEDS: busPIRone 5 MG Tablet 10 MG PO ×3 (04:39→22:48)
[2024-08-18] MEDS: 0.9% Saline Lock 10 ML Syringe IV (04:39)
[2024-08-18] MEDS: Acetaminophen 325 MG Tablet 650 MG PO ×2 (04:40→13:12)
[2024-08-18 04:53] LABS: Hematocrit 24.4 % (37-47); Hemoglobin 7.9 g/dL (12.0-15.0); Mean Corp Hgb Conc 32.4 g/dL (32-36); Mean Corpuscular Hgb 29.2 pg (27.0-32.0); Mean Platelet Vol. 9.7 fl (6.2-12.0); Platelet Count 297 K/mm3 (150-450); RBC Distribution Width CV 15.1 % (11.6-14.6); RBC Distribution Width SD 47.3 fl (35.1-43.9); Red Blood Count 2.71 M/mm3 (4.2-5.4); White Blood Count 7.1 K/mm3 (4.4-11.0)
[2024-08-18 04:54] LABS: Bacteria 0 SEEN /hpf (None Seen); Mucous, Urine 0 SEEN /hpf (<or=2+); Red Blood Cells-Urine 0 SEEN /hpf (0-5); Squamous Epithelial Cells - UA 0 SEEN /hpf (5-10); White Blood Cells 0 SEEN /hpf (0-5)
[2024-08-18 04:55] LABS: Glucose, Dipstick Normal (Normal); Ketone-Dipstick Negative (Negative); Leukocyte Esterase-Dipstick Negative /ul (Negative); Nitrite-Dipstick Negative (Negative); Occult Blood-Urine Negative /ul (Negative); Protein-Dipstick 30 mg/dl (Negative); Urine Bilirubin Dipstick Negative (Negative); Urine Urobilinogen Normal (Normal)
[2024-08-18 04:56] LABS: Color, Urine Yellow (Yellow); Urine Clarity Clear (Clear)
[2024-08-18 05:10] LABS: Anion Gap 12 (5-15); BUN 19 mg/dL (4-19); BUN/Creat Ratio 14.2 RATIO (10-20); Calcium,Total 8.3 mg/dL (7.6-11.0); Carbon Dioxide 29.6 mmol/L (21.0-32.0); Chloride 100 mmol/L (98-108); Creatinine, Serum 1.37 mg/dL (0.70-1.20); EST Glomerular Filtration Rate 43 (>60); Estimated Creatinine Clearance 35.53 ml/min (50-250); Glucose 105 mg/dL (70-99); Potassium 3.7 mmol/L (3.3-5.1); Sodium Level 142 mmol/L (133-145)
[2024-08-18] MEDS: Albuterol 2.5 MG/3 ML VIAL.NEB. INHALATION ×3 (06:47→19:10)
[2024-08-18] MEDS: Budesonide Respules 0.5 MG/2 ML AMPUL.NEB. INHALATION ×2 (06:47→19:10)
[2024-08-18] MEDS: Pregabalin 75 MG Capsule 150 MG PO ×2 (08:04→22:52)
[2024-08-18] MEDS: Heparin Injection (Vial) 5,000 UNIT/ML VIAL 5000 UNIT SC ×2 (08:05→22:47)
[2024-08-18] MEDS: Meloxicam 15 MG Tablet PO (08:05)
[2024-08-18] MEDS: Furosemide 40 MG Tablet PO (08:05)
[2024-08-18] MEDS: Pantoprazole Sodium 40 MG Tablet PO (08:05)
[2024-08-18] MEDS: Escitalopram Oxalate 20 MG Tablet PO (08:05)
[2024-08-18] MEDS: Lisinopril 40 MG Tablet PO (08:05)
--- NOTE | 2024-08-18 08:19 | PCM.PN.HOSP ---
Reason for Visit Reason for Visit: Diagnoses Hypertensive emergency (08/17/24) Acute on chronic diastolic (congestive) heart failure (08/17/24) Objective Data Objective Data Vital Signs: Vital Signs Temp Pulse Resp BP Pulse Ox O2 Del Method O2 Flow Rate 98.1 F 86 20 H 147/100 H 98 Nasal Cannula 4 08/18/24 02:00 08/18/24 08:00 08/18/24 08:00 08/18/24 08:00 08/18/24 08:00 08/18/24 08:00 08/18/24 08:00 FiO2 40 08/18/24 01:00 Oxygen Flow Rate (L/min) 4 Oxygen Delivery Method Nasal Cannula Weight: 144 lb 9.972 oz Body Mass Index (BMI) 30.3 Intake & Output: Intake and Output for Last 24 Hours 08/16/24 08/17/24 08/18/24 23:59 23:59 23:59 Intake Total 425.83 / 425.83 735 / 735 Output Total 450 / 450 100 / 100 Balance -24.17 / -24.17 635 / 635 Lab / Micro Data 08/18/24 04:30 08/18/24 04:30 Labs: Laboratory Results - last 24 hr 08/17/24 14:55: WBC 6.5, RBC 2.65 L, Hgb 7.6 L, Hct 24.2 L, MCV 91.3, MCH 28.7, MCHC 31.4 L, RDW Std Deviation 48.1 H, RDW Coeff of Alejandra 14.6, Plt Count 292, MPV 9.5, Immature Gran % (Auto) 0.500, Neut % (Auto) 60.1, Lymph % (Auto) 26.4, Gordon % (Auto) 8.2, Eos % (Auto) 3.9, Baso % (Auto) 0.9, Absolute Neuts (auto) 3.9, Absolute Lymphs (auto) 1.70, Nucleated RBC % 0, Sodium 145, Potassium 3.7, Chloride 103, Carbon Dioxide 30.5, Anion Gap 11, BUN 20 H, Creatinine 1.41 H, Estim Creat Clear Calc 35.27 L, Est GFR (MDRD) Non-Af 42 L, BUN/Creatinine Ratio 14.3, Glucose 91, Calcium 8.1, Troponin T High Sens 28 H D, NT pro BNP II 3456 H 08/17/24 17:05: Troponin T Hi Sens 2 Hr 29 H 08/17/24 19:10: Troponin T Hi Sens 4Hr 66 H* 08/18/24 04:30: WBC 7.1, RBC 2.71 L, Hgb 7.9 L, Hct 24.4 L, MCV 90.0, MCH 29.2, MCHC 32.4, RDW Std Deviation 47.3 H, RDW Coeff of Alejandra 15.1 H, Plt Count 297, MPV 9.7, Sodium 142, Potassium 3.7, Chloride 100, Carbon Dioxide 29.6, Anion Gap 12, BUN 19, Creatinine 1.37 H, Estim Creat Clear Calc 35.53 L, Est GFR (MDRD) Non-Af 43 L, BUN/Creatinine Ratio 14.2, Glucose 105 H, Calcium 8.3 08/18/24 04:50: Urine Color Yellow, Urine Clarity Clear, Urine pH 7.0, Ur Specific Aragon 1.010, Urine Protein 30 H, Urine Glucose (UA) Normal, Urine Ketones Negative, Urine Occult Blood Negative, Urine Nitrite Negative, Urine Bilirubin Negative, Urine Urobilinogen Normal, Ur Leukocyte Esterase Negative, Urine RBC 0 SEEN, Urine WBC 0 SEEN, Ur Squamous Epith Cells 0 SEEN, Urine Bacteria 0 SEEN, Urine Mucus 0 SEEN ABG Data ABG results: ABG 08/17/24 08/17/24 15:29 19:22 Specimen Type CAROLINA CAROLINA Sample Site Not entered Not entered O2 % 35.0 VBG pH 7.41 7.49 H VBG pO2 56 H 36 VBG HCO3 38 H 34 H VBG Total CO2 40 H 35 H VBG O2 Sat (Calc) 88 H 73 H VBG Base Excess 14 H 10 H POC Mix VBG pCO2 Pt Tmp 60.8 H 44.5 O2 Delivery Device Not entered Not entered Clinical Comments 12. 6. Radiography Diagnostic Testing: Radiology Impression Chest X-Ray 08/17/24 14:33 IMPRESSION: Vascular congestion and CHF with atelectasis and/or scarring at the lung bases. Reading Location: [place] [address] Physical Exam Narrative Seen and examined. Patient was admitted after she felt short of breath and blood pressure was high as per home health nurse and was advised to go to ED. She denied chest pain but had mild congestion. No fever or URI symptoms. She moved her bowels in the morning today Physical exam General: Alert, Oriented x3, Cooperative. BMI 30.2 kg/m? HEENT: Atraumatic, PERRLA, EOMI, Normocephalic. Oral: Oral mucosa moist. No Gingival or Mucosal Lesions/ Ulcerations Neck: Supple, No JVD, Negative Carotid Bruits Chest wall/Lungs: Air entry diminished in bilateral lung bases. No crepitation/rhonchi Cardiovascular: Regular rate and rhythm, Normal S1,S2, No M/G/R Abdomen: Bowel Sounds Present, Soft, Non Tender, Non-Distended : No dysuria. No renal angle tenderness. No suprapubic tenderness. Extremities: Mild edema, Capillary Refill Less than 3 Seconds Skin: No rashes, No breakdown Musculoskeletal: No Tenderness to Palpation of Joints or Extremities Neurological: Cranial nerves II-XII grossly intact, DTR 2+/4. No acute focal neurological deficit. Psych/Mental Status: Flat affect Assessment & Plan Assessment/Plan (1) Hypertensive emergency: (2) Acute on chronic heart failure with preserved ejection fraction (HFpEF): PLAN: Plan Patient is a 63-year-old female who presented to [facility] ED on 08/17/2024 with elevated BP readings. 1. Hypertensive emergency with acute on chronic HFpEF and acute hypoxic respiratory failure: ? Admit under inpatient status to ICU. Presented with BP in the 200s over 110s. Patient has features of pulmonary edema on chest x-ray with increased shortness of breath and worsening hypoxiaalong with headache secondary to severe hypertension. BNP elevated. Troponins elevated presumed due to demand ischemia from hypertensive urgency. Unclear etiology at this time. BP is better 147/100. Plan: On nicardipine drip being weaning off. IV Lasix. Heart failure core measures including intake and output, fluid restriction less than 1500 mL, daily weight monitoring, kidney and electrolytes monitoring. Patient was on BiPAP in ED. Continue during naps at night. 2. Mild creatinine elevation ? Creatinine 1.41 on admit. Baseline appears to be around 1.1-1.2. Does not meet criteria for JOSE. Had JOSE during previous admission in first week of August 2024. Suspect secondary to hypertensive emergency as above. 08/18: Repeat creatinine 1.37. BUN 19. 3. Recent MRSA bacteremia: This was addressed during previous admission. Continue IV vancomycin. In short, no clear source for MRSA bacteremia but blood cultures have cleared. Being treated with 6 weeks of IV vancomycin with stop date on 09/11. Continue IV vancomycin while here. 4. Acute on chronic debility ? PT/OT/case management consulted. Discharged home with home health care on previous admission, suspect she will be okay for that on this discharge as well. Appreciate therapy recommendations. Chronic medical conditions: ? Class I obesity: BMI 30 on admit. Complicates hospital course, care and prognosis. ? Hypertension, hyperlipidemia: Continue home statin. Blood pressure management as noted above. ? Anxiety/depression: Continue home BuSpar and escitalopram. ? COPD: Not in acute exacerbation. Continue home inhalers. ? GERD: Continue home PPI. DVT prophylaxis: Heparin subcu CODE STATUS: Full code, verified 08/17/24 14:55: WBC 6.5, RBC 2.65 L, Hgb 7.6 L, Hct 24.2 L, MCV 91.3, MCH 28.7, MCHC 31.4 L, RDW Std Deviation 48.1 H, RDW Coeff of Alejandra 14.6, Plt Count 292, MPV 9.5, Immature Gran % (Auto) 0.500, Neut % (Auto) 60.1, Lymph % (Auto) 26.4, Gordon % (Auto) 8.2, Eos % (Auto) 3.9, Baso % (Auto) 0.9, Absolute Neuts (auto) 3.9, Absolute Lymphs (auto) 1.70, Nucleated RBC % 0, Sodium 145, Potassium 3.7, Chloride 103, Carbon Dioxide 30.5, Anion Gap 11, BUN 20 H, Creatinine 1.41 H, Estim Creat Clear Calc 35.27 L, Est GFR (MDRD) Non-Af 42 L, BUN/Creatinine Ratio 14.3, Glucose 91, Calcium 8.1, Troponin T High Sens 28 H D, NT pro BNP II 3456 H 08/17/24 17:05: Troponin T Hi Sens 2 Hr 29 H 08/17/24 19:10: Troponin T Hi Sens 4Hr 66 H* 08/18/24 04:30: WBC 7.1, RBC 2.71 L, Hgb 7.9 L, Hct 24.4 L, MCV 90.0, MCH 29.2, MCHC 32.4, RDW Std Deviation 47.3 H, RDW Coeff of Alejandra 15.1 H, Plt Count 297, MPV 9.7, Sodium 142, Potassium 3.7, Chloride 100, Carbon Dioxide 29.6, Anion Gap 12, BUN 19, Creatinine 1.37 H, Estim Creat Clear Calc 35.53 L, Est GFR (MDRD) Non-Af 43 L, BUN/Creatinine Ratio 14.2, Glucose 105 H, Calcium 8.3 08/18/24 04:50: Urine Color Yellow, Urine Clarity Clear, Urine pH 7.0, Ur Specific Aragon 1.010, Urine Protein 30 H, Urine Glucose (UA) Normal, Urine Ketones Negative, Urine Occult Blood Negative, Urine Nitrite Negative, Urine Bilirubin Negative, Urine Urobilinogen Normal, Ur Leukocyte Esterase Negative, Urine RBC 0 SEEN, Urine WBC 0 SEEN, Ur Squamous Epith Cells 0 SEEN, Urine Bacteria 0 SEEN, Urine Mucus 0 SEEN Charges/Coding Visit Charges Inpatient E&M: 00649 Subs Hosp L3
--- NOTE | 2024-08-18 09:27 | CASEMGMT ---
Social Work- SW collaborated with pt [facility] SW on pt care. Pt is anticipated to d/c home today per interdisciplinary rounds with care team. SW available to follow. DHAVAL Yañez
--- NOTE | 2024-08-18 09:44 | CASEMGMT ---
Addendum entered by Sarah Uriarte 08/18/24 09:56: [facility] states that they are about to accept again and that they will need resumption orders prior to DC. Dr. Hillman notified. Pt also reports that she currently has around 10 bags of the IV ATB medications at home in her refrigerator. Original Note: RICARDO SYED Chart Review/ Readmission Assessment Index: 07/26/24-08/05/24. Dx: SBO Current: 08/17/24. Dx: Hypertensive Emergency From the index admission, the patient was discharged home with her significant other with skilled home healthcare through [facility] home health (SN, PT, OT, and SW) and home IV antibiotic infusions through [facility]. The SBO resolved without need for surgery. The patient also wears home oxygen through [employer] at 4L continuous. The patient re-presents to [facility] ER with shortness of breath and HTN. Per the H&P, a chest x-ray was obtained in the ER showing vascular congestion and CHF. BNP elevated to 3400. The patient was given IV Lasix, IV hydralazine, and nitro paste. The hospital states that the patient's blood pressure remained elevated at the time and developed worsening shortness of breath with hypoxia. Subsequently, the patient was placed on BiPAP and improved. The patient was admitted to the ICU for further management. RICARDO SYED to the patient room at this time to discuss discharge planning and readmission assessment. The patient states that she was able to wear her oxygen at home accordingly. Patient states that she was able to follow up with her PCP. Patient states that she was taking all of her medications as ordered including the home IV antibiotics with the help of her SO. Patient states that she wishes to resume home healthcare through [facility] and denies wanting to review a list of other agencies that are in network with her insurance. Patient states that she prefers to continue home IV antibiotic infusions through [facility] and denies wanting to review a list of other options. Patient reports that these infusions were changed to once per day. During rounds, the [facility] Pharmacist reports that the stop date is not until mid-September. Patient was educated about the infusion center but stated that she would prefer the home care, as this is already established. Dr. Hillman states that the patient will likely be discharged tomorrow (08/19). PAULINE to [facility] at this time. Barby from states that they will be able to resume care after the patient is discharged for SN, PT, OT, and SW. This RN CM also sent a resumption of care referral to [facility] via [facility] at this time. Awaiting return response. Patient states that she does have a ride home from the hospital through her SO and that he will be able to bring in the patient?s portable oxygen. Per ICU rounds, the patient's RN and RT state that the patient saturating adequately on the home oxygen orders. Patient denies any further questions or concerns at this time. CM to follow. Jeffry URIARTE RN CM
--- NOTE | 2024-08-18 21:26 | CPS ---
Patient refused PAP therapy for night time use.
[2024-08-18] MEDS: Atorvastatin Calcium 40 MG Tablet PO (22:48)
[2024-08-18] MEDS: MELATONIN 3 MG TABLET PO (22:50)
[2024-08-18] MEDS: traZODone 50 MG Tablet PO (22:50)
[2024-08-19] VITALS (8 sets, daily range): BP systolic 124–163; BP diastolic 78–101; PULSE 85–96; RESP 12–20; TEMP 36.6–36.9; O2SAT 95–99; BMI 30.3
[2024-08-19] MEDS: Vancomycin IV 1,000 MG/200 ML BAG 200 MG IV (01:12)
[2024-08-19] MEDS: busPIRone 5 MG Tablet 10 MG PO (05:51)
--- NOTE | 2024-08-19 08:03 | DCINST_ITS ---
Discharge Instructions Diet Discharge Diet: 2000 mg Sodium Diet DC O2, CPAP, BIPAP needs Home O2 Discharge instructions: Yes Type of respiratory needs?: Oxygen Oxygen frequency: Continuous Continuous oxygen liters per minute: 4 Dressing / Incision Discharge Activity: Return to Normal Activity Weight Bearing Status: Weight bearing as tolerated Dressing / Incision Call your doctor if you observe: Fever of 101 or Higher, Coldness, Increased Pain, Numbness or Tingling, Change in Color, Inability to urinate, Inability to have a bowel movement, Shortness of breath, Dizziness, Fainting spells, Swelling in the ankles, Chest pain, Prolonged hiccupping, Increased palpitations (irregular heartbeat) and Calf discomfort Follow Up Care When: IN 2 WEEKS Test Results: Test results from this visit will be discussed in further detail at your follow- up appointment, if applicable. Discharge Plan Admission Admit Date/Time: 08/17/24 18:46 Primary Reason for Your Visit: Hypertensive emergency Attending Provider: Sid Hlilman Primary Care Provider: DALI FRAGOSO Consulting Providers: Marlon Marks Discharge Orders/Prescriptions Prescriptions: Continued albuterol sulfate [ProAir HFA] 1 PUFF inhaler 2 puff inhalation Q4H PRN PRN (Reason: Sob &/Or Wheezing) nitroglycerin 0.4 MG tablet, sublingual 0.4 mg sublingual PRN PRN (Reason: CHEST PAIN) ondansetron 4 mg tablet,disintegrating 4 mg PO Q8H PRN PRN (Reason: Nausea) Qty: 14 0RF sumatriptan succinate 50 mg tablet 50 mg PO PRN PRN (Reason: migraine headache) meloxicam 7.5 mg tablet 15 mg PO DAILY escitalopram oxalate 20 mg tablet 20 mg PO DAILY tizanidine 4 mg tablet 4 mg PO Q8H PRN PRN (Reason: muscle spasm) atorvastatin 40 mg tablet 40 mg PO QHS dexlansoprazole 60 mg capsule,biphase delayed releas 60 mg PO DAILY acetaminophen 325 mg Tablet 1,000 mg PO Q8H PRN PRN (Reason: fever/pain 1-10) Qty: 0 0RF lisinopril 40 mg tablet 40 mg PO DAILY potassium chloride 20 mEq Tablet,Er Particles/Crystals 20 meq PO DAILYCM Qty: 30 0RF pantoprazole 40 mg tablet,delayed release (DR/EC) 40 mg PO DAILY pregabalin 150 mg capsule 150 mg PO BID trazodone 50 mg tablet 50 mg PO QHS albuterol sulfate 2.5 mg /3 mL (0.083 %) solution for nebulization 2.5 mg inhalation Q4H PRN PRN (Reason: wheezing) buspirone 10 mg tablet 10 mg PO TID fluticasone propion-salmeterol 250-50 mcg/dose blister with device 1 ea INHALATION BID loperamide 2 mg capsule 2 mg PO TID PRN PRN (Reason: diarrhea) furosemide 40 mg tablet 40 mg PO DAILY Patient Comments: pt states she had some, but does online rx; unclear last dose vancomycin in dextrose 5 % 500 mg/100 mL Piggyback 500 mg IV Q12H 38 Days Qty: 76 0RF Rx Instructions: stop date 09/11/24. Weekly bmp, cbc, and vanc trough. Fax to [phone]. Routine picc care per protocol. Dx: MRSA endocarditis. Referrals / Follow Up: DALI FRAGOSO [employer] [Primary Care Provider] - Disposition Disposition (needs filled in before D/C Order can be placed): [facility]
[2024-08-19] MEDS: Meloxicam 15 MG Tablet PO (08:42)
[2024-08-19] MEDS: Escitalopram Oxalate 20 MG Tablet PO (08:42)
[2024-08-19] MEDS: Pantoprazole Sodium 40 MG Tablet PO (08:42)
[2024-08-19] MEDS: Lisinopril 40 MG Tablet PO (08:42)
[2024-08-19] MEDS: Furosemide 40 MG Tablet PO (08:42)
[2024-08-19] MEDS: Pregabalin 75 MG Capsule 150 MG PO (08:51)
--- NOTE | 2024-08-19 09:31 | CASEMGMT ---
Social Work- SW met with pt to discuss discharge planning. Pt reports that her SO will be transporting home and that she has visitation with her dtr piyush. Pt reports that HHC has been going well. SW reminded pt that [facility] is attempting to reach pt and she needs to follow up with them for additional supports at home. Pt could not recall if [facility] had met with pt. Pt reports no needs at this time and reports that she feels safe and comfortable discharging home today. HERNANDO called Brandon at [facility] to advise of pt discharge. RN collaborated with RNYAHAIRA. Plan: home with resumption of HHC DHAVAL Yañez
--- NOTE | 2024-08-19 11:56 | PN.HOSP_ITS ---
Reason for Visit Reason for Visit: Diagnoses Hypertensive emergency (08/17/24) Acute on chronic diastolic (congestive) heart failure (08/17/24) Objective Data Objective Data Vital Signs: Vital Signs Temp Pulse Resp BP Pulse Ox O2 Del Method O2 Flow Rate 98.0 F 96 19 H 163/96 H 96 Nasal Cannula 4 08/19/24 08:45 08/19/24 08:45 08/19/24 08:45 08/19/24 08:45 08/19/24 08:45 08/19/24 09:00 08/19/24 09:00 FiO2 40 08/19/24 02:00 Oxygen Flow Rate (L/min) 4 Oxygen Delivery Method Nasal Cannula Weight: 145 lb 1.6 oz Body Mass Index (BMI) 30.3 Intake & Output: Intake and Output for Last 24 Hours 08/17/24 08/18/24 08/19/24 23:59 23:59 23:59 Intake Total 425.83 / 425.83 985 / 985 400 / 400 Output Total 450 / 450 500 / 900 900 / 900 Balance -24.17 / -24.17 485 / 85 -500 / -500 Lab / Micro Data 08/18/24 04:30 08/18/24 04:30 Physical Exam Narrative Seen and examined. Since admission blood pressure has been controlled. It is about systolic 150s. Patient moving bowel. Sinus rhythm on the property assessment monitor. She denied chest pain but had mild congestion. No fever or URI symptoms. She moved her bowels in the morning today Physical exam General: Alert, Oriented x3, Cooperative. BMI 30.2 kg/m? HEENT: Atraumatic, PERRLA, EOMI, Normocephalic. Oral: Oral mucosa moist. No Gingival or Mucosal Lesions/ Ulcerations Neck: Supple, No JVD, Negative Carotid Bruits Chest wall/Lungs: Air entry diminished in bilateral lung bases. No crepitation/rhonchi Cardiovascular: Regular rate and rhythm, Normal S1,S2, No M/G/R Abdomen: Bowel Sounds Present, Soft, Non Tender, Non-Distended : No dysuria. No renal angle tenderness. No suprapubic tenderness. Extremities: Mild edema, Capillary Refill Less than 3 Seconds Skin: No rashes, No breakdown Musculoskeletal: No Tenderness to Palpation of Joints or Extremities Neurological: Cranial nerves II-XII grossly intact, DTR 2+/4. No acute focal neurological deficit. Psych/Mental Status: Flat affect Assessment & Plan Assessment/Plan (1) Hypertensive emergency: (2) Acute on chronic heart failure with preserved ejection fraction (HFpEF): PLAN: Plan Patient is a 63-year-old female who presented to [facility] ED on 08/17/2024 with elevated BP readings. 1. Hypertensive emergency with acute on chronic HFpEF and acute hypoxic respiratory failure: ? Admit under inpatient status to ICU. Presented with BP in the 200s over 110s. Patient has features of pulmonary edema on chest x-ray with increased shortness of breath and worsening hypoxiaalong with headache secondary to severe hypertension. BNP elevated. Troponins elevated presumed due to demand ischemia from hypertensive urgency. Unclear etiology at this time. BP is better 147/100. Plan: On nicardipine drip being weaning off. IV Lasix. Heart failure core measures including intake and output, fluid restriction less than 1500 mL, daily weight monitoring, kidney and electrolytes monitoring. Patient was on BiPAP in ED. Continue during naps at night. 08/19: Blood pressure is between 124/94 to 158/101. Adherence reinforced. Patient on multiple antihypertensive medications Including lisinopril 40 mg daily, furosemide 40 mL daily. Amlodipine 5 mg daily added and prescription sent to the patient's preferred pharmacy Although patient ready for discharge but patient was given loading dose in vancomycin without realization that she has been on vancomycin since previous admission, as stopped at 09/11. 2. Mild creatinine elevation ? Creatinine 1.41 on admit. Baseline appears to be around 1.1-1.2. Does not meet criteria for JOSE. Had JOSE during previous admission in first week of August 2024. Suspect secondary to hypertensive emergency as above. 08/18: Repeat creatinine 1.37. BUN 19. 08/19: creatinine around baseline. 3. Recent MRSA bacteremia: This was addressed during previous admission. Continue IV vancomycin. In short, no clear source for MRSA bacteremia but blood cultures have cleared. Being treated with 6 weeks of IV vancomycin with stop date on 09/11. Continue IV vancomycin while here. 08/19: Discharge is held because patient was given loading dose of vancomycin therefore needs Vanco trough at 12:30 AM tomorrow to address the dose of vancomycin. 4. Acute on chronic debility ? PT/OT/case management consulted. Discharged home with home health care on previous admission, suspect she will be okay for that on this discharge as well. Appreciate therapy recommendations. Chronic medical conditions: ? Class I obesity: BMI 30 on admit. Complicates hospital course, care and prognosis. ? Hypertension, hyperlipidemia: Continue home statin. Blood pressure management as noted above. ? Anxiety/depression: Continue home BuSpar and escitalopram. ? COPD: Not in acute exacerbation. Continue home inhalers. ? GERD: Continue home PPI. DVT prophylaxis: Heparin subcu CODE STATUS: Full code, verified Discharge medication reconciliation done. Discharge follow-up instructions completed. Discharge process discussed with the patient and all questions were answered to patient's satisfaction. Follow with PCP in 1 to 2 weeks Total time spent, exact 35 minutes on discharge meds reconciliation, examination, coordination of care with nurses and ancillary staff, review of imaging and blood test and discussion with the patient on follow-up instructions. Charges/Coding Visit Charges Inpatient E&M: 34522 Subs Hosp L2
--- NOTE | 2024-08-19 11:56 | CASEMGMT ---
Addendum entered by Luciana Keller 08/19/24 14:43: RICARDO Fowler, aware to ensure Vanco IV has been discontinued from pt's discharge instructions. Addendum entered by Luciana Keller 08/19/24 14:34: Lab results are in. Per Dr Hillman, pt will be discharging home today and states he will order for BMP and Vanco trough to be drawn tomorrow. He is aware [facility] verified they can draw those tomorrow morning and they will send results to [facility] for further Vanco orders. Call placed to Barby @ [facility] and she was notified of above. Ute @ [facility] also notified. Ute asked for today's labs to be sent to I. Same done at this time. RICARDO SYED to room. Pt made aware she is discharging home today. RICARDO SYED stressed importance of not administering any Vanco IV until she has been given further instruction by [facility]. She voices understanding. Addendum entered by Luciana Keller 08/19/24 14:17: Per RICARDO Fowler, sig other very upset about discharge being cx'd d/t he had to take off of work today to take pt home and now he will need to call off of work tomorrow again to take pt home if she discharges tomorrow. Janeth states she has spoken w/Dr White and Dr Hillman. Plan is now for labs to be drawn today and if they are okay, pt to discharge home today, as long as [facility] is able to draw BMP and Vanco trough tomorrow AM. Call placed to Shelby @ [facility]. She states they are able to do RENETTA tomorrow, if pt dc's today, and is aware of labs to be drawn tomorrow if pt does dc today. [facility] then to send lab results to [facility] and they will f/u re: further Vanco orders. Call placed to [facility] and spoke Zeyad. She was made aware of tentative plan. Original Note: RICARDO SYED NOTE: Discharge order was in. RICARDO SYED spoke Zeyad @ [facility] and she was notified. Ute requested new signed script for IV vanco be sent to [facility] along w/labs and MAR. Discrepancy identified. Dr Hillman notified. Discharge cancelled and order placed for Vanco trough to be drawn tomorrow morning. RN, Pamela, made aware. Ute @ [facility] notified. Pt and significant other made aware discharge has been cancelled. Yasmin PALACION RICARDO CM
[2024-08-19 13:24] LABS: Absolute Lymphocyte Count 1.63 X10^3/uL (0.83-4.51); Absolute Neutrophil Count 3.4 X10^3/uL (2.0-7.7); Basophil# 0.07 X10^3/uL; Basophil% 1.2 % (0-1); Eosinophil# 0.26 X10^3/uL; Eosinophils% 4.4 % (0-5); Hematocrit 25.6 % (37-47); Hemoglobin 8.3 g/dL (12.0-15.0); Lymphocyte # 1.63 X10^3/ul (0.83-4.51); Lymphocyte % 27.5 % (19-41); Mean Corp Hgb Conc 32.4 g/dL (32-36); Mean Corpuscular Hgb 29.9 pg (27.0-32.0); Mean Corpuscular Volume 92.1 fL (81-99); Mean Platelet Vol. 9.7 fl (6.2-12.0); Monocyte# 0.52 X10^3/uL; Monocyte% 8.8 % (0-10); NRBC Flagged by Analyzer 0 % (0-5); Neutrophil # 3.41 X10^3/uL (2.7-7.7); Neutrophil % 57.6 % (47-70); Platelet Count 256 K/mm3 (150-450); RBC Distribution Width CV 15.5 % (11.6-14.6); RBC Distribution Width SD 51.3 fl (35.1-43.9); Red Blood Count 2.78 M/mm3 (4.2-5.4); White Blood Count 5.9 K/mm3 (4.4-11.0)
[2024-08-19 13:48] LABS: Anion Gap 13 (5-15); BUN 27 mg/dL (4-19); BUN/Creat Ratio 17.2 RATIO (10-20); Calcium,Total 8.4 mg/dL (7.6-11.0); Carbon Dioxide 28.6 mmol/L (21.0-32.0); Chloride 101 mmol/L (98-108); Creatinine, Serum 1.55 mg/dL (0.70-1.20); EST Glomerular Filtration Rate 37 (>60); Estimated Creatinine Clearance 31.45 ml/min (50-250); Glucose 147 mg/dL (70-99); Potassium 3.8 mmol/L (3.3-5.1); Sodium Level 142 mmol/L (133-145)
--- NOTE | 2024-08-19 15:08 | PCM.DC.SUM ---
Providers Date of Admission: 08/17/24 Date of Discharge: 08/19/24 Primary Care Physician: DALI FRAGOSO, MEDICAL LAB ASSISTANT-C Reason For Visit: HYPERTENSIVE EMERGENCY Diagnosis Discharge Diagnosis (1) Hypertensive emergency: Status: Acute Code(s): I16.1 - Hypertensive emergency (2) Acute on chronic heart failure with preserved ejection fraction (HFpEF): Status: Acute Code(s): I50.33 - Acute on chronic diastolic (congestive) heart failure Plan Patient is a 63-year-old female who presented to [facility] ED on 08/17/2024 with elevated BP readings. 1. Hypertensive emergency with acute on chronic HFpEF and acute hypoxic respiratory failure: ? Admit under inpatient status to ICU. Presented with BP in the 200s over 110s. Patient has features of pulmonary edema on chest x-ray with increased shortness of breath and worsening hypoxiaalong with headache secondary to severe hypertension. BNP elevated. Troponins elevated presumed due to demand ischemia from hypertensive urgency. Unclear etiology at this time. BP is better 147/100. Plan: On nicardipine drip being weaning off. IV Lasix. Heart failure core measures including intake and output, fluid restriction less than 1500 mL, daily weight monitoring, kidney and electrolytes monitoring. Patient was on BiPAP in ED. Continue during naps at night. 08/19: Blood pressure is between 124/94 to 158/101. Adherence reinforced. Patient on multiple antihypertensive medications Including lisinopril 40 mg daily, furosemide 40 mL daily. Amlodipine 5 mg daily added and prescription sent to the patient's preferred pharmacy 2. Mild creatinine elevation ? Creatinine 1.41 on admit. Baseline appears to be around 1.1-1.2. Does not meet criteria for JOSE. Had JOSE during previous admission in first week of August 2024. Suspect secondary to hypertensive emergency as above. 08/18: Repeat creatinine 1.37. BUN 19. 08/19: creatinine around baseline 3. Recent MRSA bacteremia: This was addressed during previous admission. Continue IV vancomycin. In short, no clear source for MRSA bacteremia but blood cultures have cleared. Being treated with 6 weeks of IV vancomycin with stop date on 09/11. Continue IV vancomycin while here. 4. Acute on chronic debility ? PT/OT/case management consulted. Discharged home with home health care on previous admission, suspect she will be okay for that on this discharge as well. Appreciate therapy recommendations. Chronic medical conditions: ? Class I obesity: BMI 30 on admit. Complicates hospital course, care and prognosis. ? Hypertension, hyperlipidemia: Continue home statin. Blood pressure management as noted above. ? Anxiety/depression: Continue home BuSpar and escitalopram. ? COPD: Not in acute exacerbation. Continue home inhalers. ? GERD: Continue home PPI. DVT prophylaxis: Heparin subcu CODE STATUS: Full code, verified Discharge medication reconciliation done. Discharge follow-up instructions completed. Discharge process discussed with the patient and all questions were answered to patient's satisfaction. Follow with PCP in 1 to 2 weeks Total time spent, exact 35 minutes on discharge meds reconciliation, examination, coordination of care with nurses and ancillary staff, review of imaging and blood test and discussion with the patient on follow-up instructions. 08/17/24 14:55: WBC 6.5, RBC 2.65 L, Hgb 7.6 L, Hct 24.2 L, MCV 91.3, MCH 28.7, MCHC 31.4 L, RDW Std Deviation 48.1 H, RDW Coeff of Alejandra 14.6, Plt Count 292, MPV 9.5, Immature Gran % (Auto) 0.500, Neut % (Auto) 60.1, Lymph % (Auto) 26.4, Latimer % (Auto) 8.2, Eos % (Auto) 3.9, Baso % (Auto) 0.9, Absolute Neuts (auto) 3.9, Absolute Lymphs (auto) 1.70, Nucleated RBC % 0, Sodium 145, Potassium 3.7, Chloride 103, Carbon Dioxide 30.5, Anion Gap 11, BUN 20 H, Creatinine 1.41 H, Estim Creat Clear Calc 35.27 L, Est GFR (MDRD) Non-Af 42 L, BUN/Creatinine Ratio 14.3, Glucose 91, Calcium 8.1, Troponin T High Sens 28 H D, NT pro BNP II 3456 H 08/17/24 17:05: Troponin T Hi Sens 2 Hr 29 H 08/17/24 19:10: Troponin T Hi Sens 4Hr 66 H* 08/18/24 04:30: WBC 7.1, RBC 2.71 L, Hgb 7.9 L, Hct 24.4 L, MCV 90.0, MCH 29.2, MCHC 32.4, RDW Std Deviation 47.3 H, RDW Coeff of Alejandra 15.1 H, Plt Count 297, MPV 9.7, Sodium 142, Potassium 3.7, Chloride 100, Carbon Dioxide 29.6, Anion Gap 12, BUN 19, Creatinine 1.37 H, Estim Creat Clear Calc 35.53 L, Est GFR (MDRD) Non-Af 43 L, BUN/Creatinine Ratio 14.2, Glucose 105 H, Calcium 8.3 08/18/24 04:50: Urine Color Yellow, Urine Clarity Clear, Urine pH 7.0, Ur Specific Thiells 1.010, Urine Protein 30 H, Urine Glucose (UA) Normal, Urine Ketones Negative, Urine Occult Blood Negative, Urine Nitrite Negative, Urine Bilirubin Negative, Urine Urobilinogen Normal, Ur Leukocyte Esterase Negative, Urine RBC 0 SEEN, Urine WBC 0 SEEN, Ur Squamous Epith Cells 0 SEEN, Urine Bacteria 0 SEEN, Urine Mucus 0 SEEN Medications at Discharge Home Medications albuterol sulfate 90 mcg/actuation aerosol inhaler (ProAir HFA) 2 puff inhalation Q4H PRN PRN Sob &/Or Wheezing 07/26/14 nitroglycerin 0.4 mg sublingual tablet 0.4 mg sublingual PRN PRN CHEST PAIN 06/04/17 meloxicam 7.5 mg tablet 15 mg PO DAILY pain 10/10/22 sumatriptan succinate 50 mg tablet 50 mg PO PRN PRN migraine headache 10/10/22 ondansetron 4 mg disintegrating tablet 4 mg PO Q8H PRN PRN Nausea #14 tabs 11/14/22 atorvastatin 40 mg tablet 40 mg PO QHS Cholesterol 05/11/23 dexlansoprazole 60 mg capsule,biphase delayed release 60 mg PO DAILY GERD 05/11/23 escitalopram oxalate 20 mg tablet 20 mg PO DAILY depression 05/11/23 tizanidine 4 mg tablet 4 mg PO Q8H PRN PRN muscle spasm 05/11/23 acetaminophen 325 mg tablet 1,000 mg (3.0769 x 325 mg) PO Q8H PRN PRN fever/pain 1-10 #0 tabs 05/20/23 lisinopril 40 mg tablet 40 mg PO DAILY blood pressure 06/04/23 potassium chloride 20 mEq tablet,extended release(part/cryst) 20 meq PO DAILYCM diuretic use #30 tabs 06/06/23 trazodone 50 mg tablet 50 mg PO QHS insomnia 05/01/24 albuterol sulfate 2.5 mg/3 mL (0.083 %) solution for nebulization 2.5 mg inhalation Q4H PRN PRN wheezing 07/26/24 buspirone 10 mg tablet 10 mg PO TID mental health 07/26/24 fluticasone 250 mcg-salmeterol 50 mcg/dose blistr powdr for inhalation 1 ea inhalation BID copd 07/26/24 furosemide 40 mg tablet 40 mg PO DAILY water pill 07/26/24 loperamide 2 mg capsule 2 mg PO TID PRN PRN diarrhea 07/26/24 vancomycin 500 mg/100 mL in dextrose 5 % intravenous piggyback 500 mg IV Q12H 38 days #76 mL 08/04/24 pantoprazole 40 mg tablet,delayed release 40 mg PO DAILY 08/17/24 pregabalin 150 mg capsule 150 mg PO BID 08/17/24 amlodipine 5 mg tablet 5 mg PO DAILY 1 month #30 tabs 08/19/24 Physical Exam Narrative Seen and examined. Since admission blood pressure has been controlled. Patient moving bowel. Sinus rhythm on the compliance monitor. She denied chest pain but had mild congestion. No fever or URI symptoms. She moved her bowels in the morning today Physical exam General: Alert, Oriented x3, Cooperative. BMI 30.2 kg/m? HEENT: Atraumatic, PERRLA, EOMI, Normocephalic. Oral: Oral mucosa moist. No Gingival or Mucosal Lesions/ Ulcerations Neck: Supple, No JVD, Negative Carotid Bruits Chest wall/Lungs: Air entry diminished in bilateral lung bases. No crepitation/rhonchi Cardiovascular: Regular rate and rhythm, Normal S1,S2, No M/G/R Abdomen: Bowel Sounds Present, Soft, Non Tender, Non-Distended : No dysuria. No renal angle tenderness. No suprapubic tenderness. Extremities: Mild edema, Capillary Refill Less than 3 Seconds Skin: No rashes, No breakdown Musculoskeletal: No Tenderness to Palpation of Joints or Extremities Neurological: Cranial nerves II-XII grossly intact, DTR 2+/4. No acute focal neurological deficit. Psych/Mental Status: Flat affect Weight / BMI Weight Weight: 145 lb 1.6 oz Body Mass Index (BMI) 30.3 ABG / Lab / Microbiology Data 08/18/24 04:30 08/18/24 04:30 D/C Instructions Discharge Diet: 2000 mg Sodium Diet Weight Bearing Status: Weight bearing as tolerated Call your doctor if you observe: Fever of 101 or Higher, Coldness, Increased Pain, Numbness or Tingling, Change in Color, Inability to urinate, Inability to have a bowel movement, Shortness of breath, Dizziness, Fainting spells, Swelling in the ankles, Chest pain, Prolonged hiccupping, Increased palpitations (irregular heartbeat) and Calf discomfort DC O2, CPAP, BIPAP Needs Home O2 Discharge instructions: Yes Type of respiratory needs?: Oxygen Oxygen frequency: Continuous Continuous oxygen liters per minute: 4 DC home with Oxygen: Yes Home O2 MD Review: I have reviewed the oxygen testing, and the patient qualifies for home oxygen equipment and portability. The patient is mobile in the home and the community. When: IN 2 WEEKS Meaningful Use Info Meaningful Use Meaningful Use Diagnoses (Choose all that apply): None applicable Ischemic Stroke Statin Dosing Therapy Reference: STATIN DOSE THERAPY REFERENCE: * Patients > 75 years receive moderate or high dose statin therapy. * Patients 75 years or YOUNGER should receive HIGH intensity statin dose unless contraindicated. You will be required to document reason for non-treatment if statin daily dose does not meet guidelines. HIGH DOSE STATIN THERAPY DAILY Atorvastatin > than or = to 40 mg Rosuvastatin > than or = to 20 mg Amlodipine + Atorvastatin > than or = to 2.5/40 mg Ezetimibe + Simvastatin 10/80 mg Simvastatin 80mg Discharge Plan Admission Admit Date/Time: 08/17/24 18:46 Primary Reason for Your Visit: Hypertensive emergency Attending Provider: Sid Hillman Primary Care Provider: DALI FRAGOSO Consulting Providers: Marlon Marks Discharge Orders/Prescriptions Prescriptions: New amlodipine 5 mg tablet 5 mg PO DAILY 30 Days Qty: 30 1RF Continued albuterol sulfate [ProAir HFA] 1 PUFF inhaler 2 puff inhalation Q4H PRN PRN (Reason: Sob &/Or Wheezing) nitroglycerin 0.4 MG tablet, sublingual 0.4 mg sublingual PRN PRN (Reason: CHEST PAIN) ondansetron 4 mg tablet,disintegrating 4 mg PO Q8H PRN PRN (Reason: Nausea) Qty: 14 0RF sumatriptan succinate 50 mg tablet 50 mg PO PRN PRN (Reason: migraine headache) meloxicam 7.5 mg tablet 15 mg PO DAILY escitalopram oxalate 20 mg tablet 20 mg PO DAILY tizanidine 4 mg tablet 4 mg PO Q8H PRN PRN (Reason: muscle spasm) atorvastatin 40 mg tablet 40 mg PO QHS dexlansoprazole 60 mg capsule,biphase delayed releas 60 mg PO DAILY acetaminophen 325 mg Tablet 1,000 mg PO Q8H PRN PRN (Reason: fever/pain 1-10) Qty: 0 0RF lisinopril 40 mg tablet 40 mg PO DAILY potassium chloride 20 mEq Tablet,Er Particles/Crystals 20 meq PO DAILYCM Qty: 30 0RF pantoprazole 40 mg tablet,delayed release (DR/EC) 40 mg PO DAILY pregabalin 150 mg capsule 150 mg PO BID trazodone 50 mg tablet 50 mg PO QHS albuterol sulfate 2.5 mg /3 mL (0.083 %) solution for nebulization 2.5 mg inhalation Q4H PRN PRN (Reason: wheezing) buspirone 10 mg tablet 10 mg PO TID fluticasone propion-salmeterol 250-50 mcg/dose blister with device 1 ea INHALATION BID loperamide 2 mg capsule 2 mg PO TID PRN PRN (Reason: diarrhea) furosemide 40 mg tablet 40 mg PO DAILY Patient Comments: pt states she had some, but does online rx; unclear last dose vancomycin in dextrose 5 % 500 mg/100 mL Piggyback 500 mg IV Q12H 38 Days Qty: 76 0RF Rx Instructions: stop date 09/11/24. Weekly bmp, cbc, and vanc trough. Fax to [phone]. Routine picc care per protocol. Dx: MRSA endocarditis. Referrals / Follow Up: DALI FRAGOSO MEDICAL LAB ASSISTANT-C [Primary Care Provider] - Disposition Disposition (needs filled in before D/C Order can be placed): Home Health Service Charges/Coding Visit Charges Inpatient E&M: 71596 Disch Hosp >30min
--- NOTE | 2024-08-19 16:19 | NURSING ---
educated patient and significant other to no give any vancomycin until further directed after BMP and vanc level drawn 08/20
== END 2024-08-19 15:50 | disposition home health service (06) | DRG 304 ==
LOC: ED 18:05 → ICU 18:59
PROVIDERS: Admitting Provider Hospitalist; Emergency Provider Emergency Medicine; PCP Nurse Practitioner; Referring Provider Hospitalist; Visit Provider Internal Medicine
DX: I16.1 Hypertensive emergency (principal); J96.01 Acute respiratory failure with hypoxia; I50.33 Acute on chronic diastolic (congestive) heart failure; R78.81 Bacteremia; I24.89 Other forms of acute ischemic heart disease; J44.9 Chronic obstructive pulmonary disease, unspecified; I11.0 Hypertensive heart disease with heart failure; F32.A Depression, unspecified; E66.811 Obesity, class 1; F41.9 Anxiety disorder, unspecified; E78.5 Hyperlipidemia, unspecified; K21.9 Gastro-esophageal reflux disease without esophagitis; I25.2 Old myocardial infarction; B95.62 Methicillin resistant Staphylococcus aureus infection as the cause of diseases classified elsewhere; Z68.30 Body mass index [BMI] 30.0-30.9, adult; Z79.1 Long term (current) use of non-steroidal anti-inflammatories (NSAID); Z79.2 Long term (current) use of antibiotics; Z79.51 Long term (current) use of inhaled steroids; Z79.899 Other long term (current) drug therapy; Z87.891 Personal history of nicotine dependence
CPT/HCPCS: 36592; 36593; 71046; 80048; 80202; 81001; 82803; 83880; 84484; 85025; 85027; 85652; 93005; 94002; 94640; 94668; 94762; 99282; J2997; A4216; J1938

== ENCOUNTER → 2024-08-20 | Outpatient (CLI) | payer MEDICARE, MEDICAID, SELFPAY ==
[2024-08-20 12:33] LABS: Hematocrit 27.3 % (37-47); Hemoglobin 8.6 g/dL (12.0-15.0); Mean Corp Hgb Conc 31.5 g/dL (32-36); Mean Corpuscular Hgb 29.3 pg (27.0-32.0); Mean Corpuscular Volume 92.9 fL (81-99); Mean Platelet Vol. 10.3 fl (6.2-12.0); Platelet Count 313 K/mm3 (150-450); RBC Distribution Width CV 15.5 % (11.6-14.6); RBC Distribution Width SD 51.8 fl (35.1-43.9); Red Blood Count 2.94 M/mm3 (4.2-5.4); White Blood Count 6.2 K/mm3 (4.4-11.0)
[2024-08-20 12:59] LABS: Vancomycin, Trough Level 19.6 ug/mL (5.0-15.0)
[2024-08-20 13:11] LABS: Anion Gap 14 (5-15); BUN 27 mg/dL (4-19); BUN/Creat Ratio 16.9 RATIO (10-20); Calcium,Total 8.5 mg/dL (7.6-11.0); Carbon Dioxide 28.5 mmol/L (21.0-32.0); Chloride 99 mmol/L (98-108); Creatinine, Serum 1.62 mg/dL (0.70-1.20); EST Glomerular Filtration Rate 35 (>60); Glucose 156 mg/dL (70-99); Potassium 3.4 mmol/L (3.3-5.1); Sodium Level 142 mmol/L (133-145)
== END | disposition home or self-care (01) ==
LOC: LABSPEC 10:50
PROVIDERS: PCP Nurse Practitioner; Visit Provider Internal Medicine Infectious Disease
DX: I33.0 Acute and subacute infective endocarditis (principal); B95.62 Methicillin resistant Staphylococcus aureus infection as the cause of diseases classified elsewhere
CPT/HCPCS: 80048; 80202; 85027

== ENCOUNTER → 2024-08-21 | Outpatient (CLI) | payer MEDICARE, MEDICAID, SELFPAY ==
[2024-08-21 11:28] LABS: Anion Gap 13 (5-15); BUN 29 mg/dL (4-19); BUN/Creat Ratio 17.8 RATIO (10-20); Calcium,Total 8.5 mg/dL (7.6-11.0); Chloride 99 mmol/L (98-108); Creatinine, Serum 1.61 mg/dL (0.70-1.20); EST Glomerular Filtration Rate 36 (>60); Glucose 92 mg/dL (70-99); Potassium 3.4 mmol/L (3.3-5.1); Sodium Level 143 mmol/L (133-145); Vancomycin, Trough Level 12.6 ug/mL (5.0-15.0)
== END | disposition home or self-care (01) ==
LOC: HHLAB 10:25
PROVIDERS: Internal Medicine; PCP Nurse Practitioner; Referring Provider Internal Medicine Infectious Disease; Visit Provider Internal Medicine Infectious Disease
DX: R78.81 Bacteremia (principal); B95.62 Methicillin resistant Staphylococcus aureus infection as the cause of diseases classified elsewhere; N17.9 Acute kidney failure, unspecified
CPT/HCPCS: 80048; 80202

== ENCOUNTER → 2024-08-25 | Outpatient (CLI) | payer MEDICARE, MEDICAID, SELFPAY ==
[2024-08-25 10:09] LABS: Hematocrit 25.5 % (37-47); Hemoglobin 7.9 g/dL (12.0-15.0); Mean Corpuscular Hgb 28.9 pg (27.0-32.0); Mean Corpuscular Volume 93.4 fL (81-99); Mean Platelet Vol. 10.5 fl (6.2-12.0); Platelet Count 242 K/mm3 (150-450); RBC Distribution Width CV 15.5 % (11.6-14.6); RBC Distribution Width SD 52.9 fl (35.1-43.9); Red Blood Count 2.73 M/mm3 (4.2-5.4); White Blood Count 5.2 K/mm3 (4.4-11.0)
[2024-08-25 10:37] LABS: Anion Gap 15 (5-15); BUN 31 mg/dL (4-19); BUN/Creat Ratio 18.7 RATIO (10-20); Calcium,Total 8.5 mg/dL (7.6-11.0); Carbon Dioxide 25.6 mmol/L (21.0-32.0); Chloride 104 mmol/L (98-108); Creatinine, Serum 1.64 mg/dL (0.70-1.20); EST Glomerular Filtration Rate 35 (>60); Glucose 203 mg/dL (70-99); Potassium 3.3 mmol/L (3.3-5.1); Sodium Level 144 mmol/L (133-145)
[2024-08-25 10:40] LABS: Vancomycin, Trough Level 14.8 ug/mL (5.0-15.0)
== END | disposition home or self-care (01) ==
LOC: LABSPEC 09:16
PROVIDERS: PCP Nurse Practitioner; Visit Provider Internal Medicine Infectious Disease
DX: I33.0 Acute and subacute infective endocarditis (principal); B95.62 Methicillin resistant Staphylococcus aureus infection as the cause of diseases classified elsewhere; I10 Essential (primary) hypertension
CPT/HCPCS: 80048; 80202; 85027

== ENCOUNTER → 2024-09-01 | Outpatient (CLI) | payer MEDICARE, MEDICAID, SELFPAY ==
[2024-09-01 12:47] LABS: Hematocrit 27.5 % (37-47); Hemoglobin 8.6 g/dL (12.0-15.0); Mean Corp Hgb Conc 31.3 g/dL (32-36); Mean Corpuscular Volume 93.9 fL (81-99); Mean Platelet Vol. 10.8 fl (6.2-12.0); Platelet Count 244 K/mm3 (150-450); RBC Distribution Width CV 15.0 % (11.6-14.6); RBC Distribution Width SD 51.6 fl (35.1-43.9); Red Blood Count 2.93 M/mm3 (4.2-5.4); White Blood Count 5.6 K/mm3 (4.4-11.0)
[2024-09-01 13:24] LABS: Vancomycin, Trough Level 14.4 ug/mL (5.0-15.0)
[2024-09-01 13:26] LABS: Anion Gap 14 (5-15); BUN 25 mg/dL (4-19); BUN/Creat Ratio 16.7 RATIO (10-20); Calcium,Total 8.6 mg/dL (7.6-11.0); Carbon Dioxide 25.1 mmol/L (21.0-32.0); Chloride 106 mmol/L (98-108); Glucose 186 mg/dL (70-99); Potassium 3.1 mmol/L (3.3-5.1)
== END | disposition home or self-care (01) ==
LOC: LABSPEC 09:35
PROVIDERS: PCP Nurse Practitioner; Visit Provider Internal Medicine Infectious Disease
DX: I33.0 Acute and subacute infective endocarditis (principal); B95.62 Methicillin resistant Staphylococcus aureus infection as the cause of diseases classified elsewhere; I10 Essential (primary) hypertension
CPT/HCPCS: 80048; 80202; 85027

== ENCOUNTER 2024-09-08 09:45 | Outpatient (RCR) | payer MEDICARE, MEDICAID, SELFPAY ==
[2024-09-08 10:36] LABS: Vancomycin, Trough Level 15.4 ug/mL (5.0-15.0)
[2024-09-08 10:37] LABS: Anion Gap 12 (5-15); BUN 28 mg/dL (4-19); BUN/Creat Ratio 16.3 RATIO (10-20); Calcium,Total 8.6 mg/dL (7.6-11.0); Carbon Dioxide 27.6 mmol/L (21.0-32.0); Chloride 107 mmol/L (98-108); Glucose 103 mg/dL (70-99); Potassium 3.3 mmol/L (3.3-5.1)
[2024-09-08 11:58] LABS: Hematocrit 28.9 % (37-47); Hemoglobin 9.1 g/dL (12.0-15.0); Mean Corp Hgb Conc 31.5 g/dL (32-36); Mean Corpuscular Volume 92.3 fL (81-99); Mean Platelet Vol. 10.8 fl (6.2-12.0); Platelet Count 262 K/mm3 (150-450); RBC Distribution Width CV 15.2 % (11.6-14.6); RBC Distribution Width SD 51.2 fl (35.1-43.9); Red Blood Count 3.13 M/mm3 (4.2-5.4); White Blood Count 6.5 K/mm3 (4.4-11.0)
== END 2024-10-01 18:00 | disposition home or self-care (01) ==
LOC: HHLAB 09:45
PROVIDERS: PCP Nurse Practitioner; Referring Provider Internal Medicine Infectious Disease; Visit Provider Internal Medicine Infectious Disease
DX: A41.9 Sepsis, unspecified organism (principal)
CPT/HCPCS: 80048; 80202; 85027

== ENCOUNTER 2024-12-11 17:38 | Emergency (ER) | payer MEDICARE, MEDICAID, SELFPAY ==
[2024-12-11] VITALS (8 sets, daily range): BP systolic 156–187; BP diastolic 90–108; PULSE 65–79; RESP 10–22; TEMP 36.6; O2SAT 96–99; BMI 37.6
--- NOTE | 2024-12-11 18:32 | EDS_ITS ---
HPI History of Present Illness Chief Complaint: Neuro S/Sx Informant: patient Onset/Context/Timing Onset: Days (3) Context: Sudden Onset Timing: Continuous Quality: Numbness Location: Bilateral face, left worse than right Worsened by: Nothing Relieved by: Nothing Narrative Narrative: Patient presents with slurred speech and facial paresthesias that began 3 days ago. Patient states she feels like her numbness is worse on the left side of her face than the right. Patient states she does have paresthesias on both sides of her face however. Patient states that her speech is somewhat slurred. Patient denies any paresthesias or weakness of her extremities. Patient denies any difficulty swallowing. Patient admits to some subjective fevers. Patient admits to some pain in her chest. Patient also admits to a mild cough. Patient states she started having diarrhea a couple days ago. Patient also admits to some dysuria and thinks she may have a urinary tract infection. [facility] Medical History Acute on chronic heart failure with preserved ejection fraction (HFpEF) Smoking greater than 20 pack years Fibromyalgia Rheumatoid arthritis HTN (hypertension) Bipolar disorder CHF (congestive heart failure) Anxiety Depression Kidney disease GERD (gastroesophageal reflux disease) Former smoker On home oxygen therapy Irregular heart beat Myocardial infarct Migraines Fibromyalgia NSTEMI (non-ST elevated myocardial infarction) Hypertension Rheumatoid arthritis Bipolar 1 disorder COPD (chronic obstructive pulmonary disease) COPD (chronic obstructive pulmonary disease) Home Medications ?Medication ?Instructions ?Recorded ?Last Taken ?Type albuterol sulfate 90 mcg/actuation 2 puff inhalation Q 4H PRN PRN Sob 07/26/14 06/06/17 History aerosol inhaler (ProAir HFA) &/Or Wheezing nitroglycerin 0.4 mg sublingual 0.4 mg sublingual PRN PRN CHEST 06/04/17 Unknown History tablet PAIN meloxicam 7.5 mg tablet 15 mg PO DAILY pain 10/10/22 04/30/24 History sumatriptan succinate 50 mg tablet 50 mg PO PRN PRN mi graine headache 10/10/22 04/30/24 History ondansetron 4 mg disintegrating 4 mg PO Q8H PRN PRN Na usea #14 tabs 11/14/22 Unknown Rx tablet atorvastatin 40 mg tablet 40 mg PO QHS Cholesterol 11/2504/30/24 History dexlansoprazole 60 mg 60 mg PO DAILY GERD 05/11/23 Unknown History capsule,biphase delayed release escitalopram oxalate 20 mg tablet 20 mg PO DAILY depre ssion 05/11/23 04/30/24 History tizanidine 4 mg tablet 4 mg PO Q8H PRN PRN muscle s pasm 05/11/23 04/30/24 History acetaminophen 325 mg tablet 1,000 mg (3.0769 x 325 mg) PO Q8H 05/20/23 Unknown Rx PRN PRN fever/pain 1-10 #0 tabs lisinopril 40 mg tablet 40 mg PO DAILY blood pressur e 06/04/23 04/30/24 History potassium chloride 20 mEq 20 meq PO DAILYCM diuretic u se #30 06/06/23 04/30/24 Rx tablet,extended release(part/cryst) tabs trazodone 50 mg tablet 50 mg PO QHS insomnia Unknown History albuterol sulfate 2.5 mg/3 mL 2.5 mg inhalation Q4H AL N PRN 07/26/24 Unknown History (0.083 %) solution for nebulization wheezing buspirone 10 mg tablet 10 mg PO TID mental health 0 07/26/24 Unknown History fluticasone 250 mcg-salmeterol 50 1 ea inhalation BID copd 07/26/24 Unknown History mcg/dose blistr powdr for inhalation furosemide 40 mg tablet 40 mg PO DAILY water pill Unknown History loperamide 2 mg capsule 2 mg PO TID PRN PRN diarrhea 07/26/24 Unknown History vancomycin 500 mg/100 mL in 500 mg IV Q12H 38 days #76 mL 08/04/24 Unknown Rx dextrose 5 % intravenous piggyback pantoprazole 40 mg tablet,delayed 40 mg PO DAILY 08/17 Unknown History release pregabalin 150 mg capsule 150 mg PO BID 08/17/24 Unkno wn History amlodipine 5 mg tablet 5 mg PO DAILY 1 month #30 ta bs 08/19/24 Unknown Rx cephalexin 500 mg capsule 500 mg PO Q6 #12 CAPSULES Unknown Rx Allergy/AdvReac Type Severity Reaction Status Date / Time methotrexate Allergy Other Verified 12/11/24 17:43 nadolol Allergy Unknown Verified 12/11/24 17:43 prochlorperazine Allergy PT UNABLE Verified 12/11/24 17:43 TO RESPOND-NEEDS F/U baclofen AdvReac Other Verified 12/11/24 17:43 lorazepam (From Ativan) AdvReac Nausea Verified 12/11/24 17:43 propranolol AdvReac Other Verified 12/11/24 17:43 Family History Other COPD (chronic obstructive pulmonary disease) Surgical History H/O umbilical hernia repair Social History Smoking Status: Former smoker substance use type: marijuana ROS ROS ED Constitutional Constitutional ED: Reports fever(s) and subjective; Denies chills Eyes Eyes: Denies blurry vision or change in vision ENT ENT ED: Reports rhinorrhea; Denies sore throat Cardiovascular Cardiovascular: Reports chest pain; Denies palpitations Respiratory/Chest Respiratory/Chest: Reports cough; Denies dyspnea Gastrointestinal Gastrointestinal: Reports diarrhea; Denies nausea or vomiting Genitourinary Genitourinary ED: Reports dysuria; Denies hematuria Musculoskeletal Musculoskeletal: Reports back pain; Denies neck pain Integumentary Denies abscess or rash Neurologic Neurologic: Reports headache(s); Denies weakness Allergic/Immunologic Allergic/Immunologic ED: Denies mouth swelling or urticaria EXAM Physical Exam Const Vital Signs: 12/11/24 17:41 12/11/24 18:44 12/11/24 18:56 Temperature 98 F Temperature Source Oral Pulse Rate 78 74 78 Respiratory Rate 22 H 16 16 Blood Pressure 187/100 H 156/90 H Blood Pressure Mean 129 112 Pulse Ox 98 98 Oxygen Delivery Method Room Air Nasal Cannula Oxygen Flow Rate (L/min) 2 12/11/24 19:00 12/11/24 20:14 12/11/24 22:00 Temperature Temperature Source Pulse Rate 79 77 71 Respiratory Rate 19 H 18 Blood Pressure 157/108 H 157/108 H Blood Pressure Mean 124 124 Pulse Ox 99 99 96 Oxygen Delivery Method Nasal Cannula Room Air Nasal Cannula Oxygen Flow Rate (L/min) 2 2 Positive well nourished and well developed Constitutional Narrative: BMI is 37.6. General Appearance ED: well developed and NAD HEENT Reports moist mucous membranes Neck supple and no JVD Resp normal respiratory effort and clear to auscultation bilaterally Cardio regular rate and regular rhythm GI non-tender and non-distended Palpation: soft Back/Spine no CVA tenderness Back/Spine Narrative: There is mild tenderness over the paraspinal right. No midline tenderness is no bony crepitance or step-off. There is no CVA tenderness. Neuro oriented x3, CN's II-XII intact bilaterally and no sensory deficits noted Sensorium / Orientation: alert Motor Exam: strength 5/5 throughout Psych mental status grossly normal MDM MDM MDM Narrative Medical decision making narrative: Differential diagnosis includes stroke, electrolyte abnormality, dehydration, COPD exacerbation, urinary tract infection, viral illness, and coagulopathy. CT scan of the brain will be obtained to assess for intracranial bleeding and stroke. Chest x-ray will be obtained to assess for pneumonia or bronchitis. EKG will be obtained to assess for cardiac dysrhythmia and cardiac ischemia. CBC will be obtained to assess for leukocytosis and anemia. Basic metabolic profile will be obtained to assess for electrolyte abnormality renal function. PT with INR and PTT will be obtained to assess for coagulopathy. Urinalysis will be obtained to assess for urinary tract infection and hematuria. Serum alcohol level will be obtained to assess for alcohol intoxication. COVID-19, influenza, and RSV PCR will be obtained to assess for viral illness. Lab Data Attestation: I reviewed the patient's lab results. Lab results narrative: CBC was reviewed. There is a mild anemia with a hemoglobin of 11.0 and hematocrit of 33.0. Basic metabolic profile was reviewed and was essentially within normal limits. Urinalysis was reviewed. Leukocyte esterase was 100 with 10-25 white blood cells. Serum alcohol level was reviewed and was less than 10.1. PT with INR and PTT were reviewed and were within normal limits. COVID- 19 PCR was reviewed and was negative. Influenza PCR was reviewed and was negative for influenza A and influenza B. RSV PCR was reviewed and was negative. Labs: Laboratory Results - last 24 hr 12/11/24 12/11/24 12/11/24 17:55 18:50 18:58 WBC 7.9 RBC 3.78 L Hgb 11.0 L Hct 33.0 L MCV 87.3 MCH 29.1 MCHC 33.3 RDW Std Deviation 42.0 RDW Coeff of Alejandra 13.3 Plt Count TNP MPV TNP Immature Gran % (Auto) 0.600 Neut % (Auto) 60.1 Lymph % (Auto) 25.7 [place] % (Auto) 8.8 Eos % (Auto) 4.2 Baso % (Auto) 0.6 Absolute Neuts (auto) 4.7 Absolute Lymphs (auto) 2.02 Nucleated RBC % 0 Differential Comment SCANNED Platelet Estimate ADEQUATE PT Cancelled INR Cancelled APTT Cancelled Sodium 142 Potassium 4.5 Chloride 107 Carbon Dioxide 23.0 Anion Gap 12 BUN 17 Creatinine 0.95 Estim Creat Clear Calc 57.37 Est GFR (MDRD) Non-Af 67 BUN/Creatinine Ratio 17.7 Glucose 81 Calcium 9.0 Urine Color Yellow Urine Clarity Clear Urine pH 6.0 Ur Specific [place] 1.020 Urine Protein 30 H Urine Glucose (UA) Normal Urine Ketones Negative Urine Occult Blood Negative Urine Nitrite Negative Urine Bilirubin Negative Urine Urobilinogen Normal Ur Leukocyte Esterase 100 H Urine RBC 0 SEEN Urine WBC 10-25 SEEN Ur Squamous Epith Cells 0-5 SEEN Ur Transition Epith Cell 0-5 SEEN Urine Bacteria RARE Urine Mucus RARE Ethyl Alcohol < 10.1 12/11/24 12/11/24 20:10 20:49 WBC RBC Hgb Hct MCV MCH MCHC RDW Std Deviation RDW Coeff of Alejandra Plt Count MPV Immature Gran % (Auto) Neut % (Auto) Lymph % (Auto) [place] % (Auto) Eos % (Auto) Baso % (Auto) Absolute Neuts (auto) Absolute Lymphs (auto) Nucleated RBC % Differential Comment Platelet Estimate PT Cancelled 12.3 INR Cancelled 0.9 APTT Cancelled 25.3 Sodium Potassium Chloride Carbon Dioxide Anion Gap BUN Creatinine Estim Creat Clear Calc Est GFR (MDRD) Non-Af BUN/Creatinine Ratio Glucose Calcium Urine Color Urine Clarity Urine pH Ur Specific [place] Urine Protein Urine Glucose (UA) Urine Ketones Urine Occult Blood Urine Nitrite Urine Bilirubin Urine Urobilinogen Ur Leukocyte Esterase Urine RBC Urine WBC Ur Squamous Epith Cells Ur Transition Epith Cell Urine Bacteria Urine Mucus Ethyl Alcohol Radiography Diagnostic Testing: Clinical Impression(s) from Imaging Studies Chest X-Ray 12/11/24 19:07 IMPRESSION: No evidence of acute cardiopulmonary disease. Suggestion of COPD/emphysema. Exaggerated thoracic kyphosis. Reading Location: [id number] Brain CT 12/11/24 21:41 IMPRESSION: No acute intracranial CT abnormality. Reading Location: [facility] PA and lateral chest x-ray was obtained. There are 2 views. On my independent interpretation, lung tobias are clear. There is normal cardiac silhouette. Bony thorax is normal. There is no acute process noted. Radiologist also interpreted the x-ray and agrees. CT scan of the brain was obtained. There is no acute intracranial abnormality. This was interpreted by the radiologist and was also independently reviewed by myself. EKG Initial EKG: Attestation: I personally reviewed and interpreted this EKG as follows: Interpretation: Sinus Rhythm (69) and No Acute Injury Pattern Comments: EKG was obtained. On my independent interpretation, it showed a normal sinus rhythm with a rate of 69. AL interval, QRS interval, and QTc intervals were all normal. [place] was normal. There are no acute ST or T wave changes. Treatment and Re-Evaluation :: Patient was given a DuoNeb aerosol here. Patient was advised of her findings. Patient was given a dose of Keflex here. Patient was given a prescription for Keflex. Patient was instructed to follow-up with her primary care physician in 5 to 7 days. Patient understood and was agreeable with the plan. All questions were answered. Discharge Plan Triage Chief Complaint: Neuro S/Sx ED Provider: Trey Mendoza Dx/Rx/DC Orders Clinical Impression: Urinary tract infection, Elevated blood pressure reading, Paresthesias Instructions: ED Cystitis Female Adult, ED Paresthesia Prescriptions: New cephalexin 500 mg capsule 500 mg PO Q6 Qty: 12 0RF No Action albuterol sulfate [ProAir HFA] 1 PUFF inhaler 2 puff inhalation Q4H PRN PRN (Reason: Sob &/Or Wheezing) nitroglycerin 0.4 MG tablet, sublingual 0.4 mg sublingual PRN PRN (Reason: CHEST PAIN) ondansetron 4 mg tablet,disintegrating 4 mg PO Q8H PRN PRN (Reason: Nausea) Qty: 14 0RF sumatriptan succinate 50 mg tablet 50 mg PO PRN PRN (Reason: migraine headache) meloxicam 7.5 mg tablet 15 mg PO DAILY escitalopram oxalate 20 mg tablet 20 mg PO DAILY tizanidine 4 mg tablet 4 mg PO Q8H PRN PRN (Reason: muscle spasm) atorvastatin 40 mg tablet 40 mg PO QHS dexlansoprazole 60 mg capsule,biphase delayed releas 60 mg PO DAILY acetaminophen 325 mg Tablet 1,000 mg PO Q8H PRN PRN (Reason: fever/pain 1-10) Qty: 0 0RF lisinopril 40 mg tablet 40 mg PO DAILY potassium chloride 20 mEq Tablet,Er Particles/Crystals 20 meq PO DAILYCM Qty: 30 0RF pantoprazole 40 mg tablet,delayed release (DR/EC) 40 mg PO DAILY pregabalin 150 mg capsule 150 mg PO BID amlodipine 5 mg tablet 5 mg PO DAILY 30 Days Qty: 30 1RF trazodone 50 mg tablet 50 mg PO QHS albuterol sulfate 2.5 mg /3 mL (0.083 %) solution for nebulization 2.5 mg inhalation Q4H PRN PRN (Reason: wheezing) buspirone 10 mg tablet 10 mg PO TID fluticasone propion-salmeterol 250-50 mcg/dose blister with device 1 ea INHALATION BID loperamide 2 mg capsule 2 mg PO TID PRN PRN (Reason: diarrhea) furosemide 40 mg tablet 40 mg PO DAILY Patient Comments: pt states she had some, but does online rx; unclear last dose vancomycin in dextrose 5 % 500 mg/100 mL Piggyback 500 mg IV Q12H 38 Days Qty: 76 0RF Rx Instructions: stop date 09/11/24. Weekly bmp, cbc, and vanc trough. Fax to [phone]. Routine picc care per protocol. Dx: MRSA endocarditis. Primary Care Provider: ADLI FRAGOSO Referrals: DALI FRAGOSO NP-C [Primary Care Provider, Internal Medicine] - 5-7 Days Print Language: Slovenian Disposition Disposition: Home, Self Care
[2024-12-11 18:54] LABS: Hematocrit 33.0 % (37-47); Hemoglobin 11.0 g/dL (12.0-15.0); Immature Granulocytes Count 0.050 X10^3/uL (0.0-0.0); Mean Corp Hgb Conc 33.3 g/dL (32-36); Mean Corpuscular Volume 87.3 fL (81-99); NRBC Flagged by Analyzer 0 % (0-5); POSITIVE COUNT YES; RBC Distribution Width CV 13.3 % (11.6-14.6); RBC Distribution Width SD 42.0 fl (35.1-43.9); Red Blood Count 3.78 M/mm3 (4.2-5.4); White Blood Count 7.9 K/mm3 (4.4-11.0)
[2024-12-11 18:55] LABS: Red Blood Cells-Urine 0 SEEN /hpf (0-5)
--- NOTE | 2024-12-11 19:07 | RAD_ITS ---
PROCEDURE: CHEST PA AND LATERAL 12/11/2024 REASON FOR EXAM: DYSPNEA TECHNIQUE: Procedure Code: RADCXR Modality: DX Procedure: CHEST PA AND LATERAL COMPARISON: 08/17/2024 FINDINGS: Lungs/Pleura: No focal consolidation, pneumothorax or sizable pleural effusion. Increased AP diameter of the thorax suggestive of COPD/emphysema. Heart/Mediastinum: Borderline enlarged. Tortuous and calcified thoracic aorta. Bones/Soft tissues: Multilevel degenerative changes of the spine with exaggerated thoracic kyphosis. Multiple right humeral head anchor screws and calcific tendinosis. RAD/Chest PA and Lateral IMPRESSION: No evidence of acute cardiopulmonary disease. Suggestion of COPD/emphysema. Exaggerated thoracic kyphosis. Reading Location: [id number]
[2024-12-11 19:29] LABS: Anion Gap 12 (5-15); BUN 17 mg/dL (4-19); BUN/Creat Ratio 17.7 RATIO (10-20); Calcium,Total 9.0 mg/dL (7.6-11.0); Carbon Dioxide 23.0 mmol/L (21.0-32.0); Chloride 107 mmol/L (98-108); Estimated Creatinine Clearance 57.37 ml/min (50-250); Glucose 81 mg/dL (70-99); Potassium 4.5 mmol/L (3.3-5.1)
[2024-12-11 19:32] LABS: Differential Indicated SCAN CRITERIA MET
[2024-12-11 20:02] LABS: Alcohol, Blood (Medical)-Serum < 10.1 mg/dL (<=10.0)
[2024-12-11 20:14] LABS: Differential Comment SCANNED
[2024-12-11 20:38] LABS: Color, Urine Yellow (Yellow); Glucose, Dipstick Normal (Normal); Ketone-Dipstick Negative (Negative); Leukocyte Esterase-Dipstick 100 /ul (Negative); Nitrite-Dipstick Negative (Negative); Occult Blood-Urine Negative /ul (Negative); Protein-Dipstick 30 mg/dl (Negative); Specific Gravity, Urine 1.020 (1.002-1.030); Urine Bilirubin Dipstick Negative (Negative)
[2024-12-11 20:57] LABS: Squamous Epithelial Cells - UA 0-5 SEEN /hpf (5-10); Transitional Epithelial - Ur 0-5 SEEN /hpf (0-5)
[2024-12-11 20:59] LABS: Mucous, Urine RARE /hpf (<or=2+)
[2024-12-11 21:04] LABS: Prothrombin Time (Protime)PT. 12.3 SECONDS (11.7-14.9)
[2024-12-11 21:05] LABS: Partial Thromboplast Time 25.3 Seconds (24.1-36.2)
--- NOTE | 2024-12-11 21:41 | CT_ITS ---
PROCEDURE: BRAIN/HEAD WITHOUT CONTRAST 12/11/2024 REASON FOR EXAM: PARESTHESIAS TECHNIQUE: Procedure Code: CTBR Modality: CT Procedure: BRAIN/HEAD WITHOUT CONTRAST Coronal and Sagittal reconstruction series were provided. One or more dose reduction techniques were used (e.g., Automated exposure control, adjustment of the mA and/or kV according to patient size, use of iterative reconstruction technique. FINDINGS: No acute intracranial hemorrhage. No midline shift. The ventricles are normal in size and configuration. No extra-axial fluid collection is identified. No fracture. The calvarium is intact. The visualized paranasal sinuses and mastoid air cells are clear. CT/Brain/Head without Contrast IMPRESSION: No acute intracranial CT abnormality. Reading Location: [id number]
== END 2024-12-11 23:14 | disposition home or self-care (01) ==
PROVIDERS: Emergency Provider Emergency Medicine; PCP Nurse Practitioner; Visit Provider Emergency Medicine
DX: N39.0 Urinary tract infection, site not specified (principal); F31.9 Bipolar disorder, unspecified; J44.9 Chronic obstructive pulmonary disease, unspecified; R20.2 Paresthesia of skin; R03.0 Elevated blood-pressure reading, without diagnosis of hypertension; I25.2 Old myocardial infarction; R50.9 Fever, unspecified; Z87.891 Personal history of nicotine dependence
CPT/HCPCS: 36415; 70450; 71046; 80048; 81001; 82077; 85025; 85610; 85730; 87631; 93005; 94640; 96374; 99284; A4216